=== PATIENT | female | born 1955 | race Caucasian/White ===

== ENCOUNTER → 2016-10-15 | Outpatient (CLI) | payer MEDICARE ==
[2016-10-15 11:02] LABS: CH 30.6; CHCM 32.9; HCT 43.4 % (34.0-46.0); HGB 13.8 gm/dL (11.4-16.0); MCH 29.8 pg (25.0-35.0); MCHC 31.9 g/dL (31.0-37.0); MCV 93.4 fL (80.0-100.0); Mean Platelet Volume 7.4; RBC 4.65 m/uL (3.80-5.40); RDW 13.2 % (11.5-15.5); WBC 6.3 k/uL (3.8-10.6)
[2016-10-15 11:26] LABS: Potassium 4.8 mmol/L (3.5-5.1)
[2016-10-15 13:09] LABS: Hemoglobin A1C 5.6 % (4.2-6.1)
== END ==
LOC: LABWHC1 08:28
PROVIDERS: ATTEND Psychiatry & Neurology Psychiatry
DX: F31.60 Bipolar disorder, current episode mixed, unspecified (principal); E87.8 Other disorders of electrolyte and fluid balance, not elsewhere classified; E11.9 Type 2 diabetes mellitus without complications
CPT/HCPCS: 36415; 80051; 80164; 83036; 84460; 85027

== ENCOUNTER → 2017-10-29 | Outpatient (CLI) | payer MEDICARE ==
--- NOTE | 2017-10-29 15:51 | BD ---
EXAMINATION TYPE: MG DEXA axial skeleton. DATE OF EXAM: 10/29/2017 COMPARISON: NONE CLINICAL HISTORY: Height: 4 FT 11 IN Weight: 191 FRAX RISK QUESTIONS: Alcohol (3 or more units per day): NO Family History (Parent hip fracture): NO Glucocorticoids (More than 3mos): NO (Ex: prednisone, prednisolone, methylprednisolone, dexamethasone, and hydrocortisone). History of Fracture in Adulthood: NO Secondary Osteoporosis: 1. Type 1 Diabetes: TYPE 2 2. Hyperthyroidism: NO 3. Menopause before 45: UNSURE 4. Malnutrition: NO 5. Chronic liver disease: NO Rheumatoid Arthritis: NO Current Tobacco Use: YES RISK FACTORS HISTORY OF: Family History of Osteoporosis: YES Active: NO Postmenopausal woman: PART HYST UNSURE OF YEAR Take estrogen and/or progesterone medications: DID TAKE NO LONGER TAKES Lost more than 2 inches in height since high school: YES MEDICATIONS: Thyroid Medications: YES Which medication: LEVOTHYROXINE How Lon YEARS Additional Medications: LEVOTHYROXINE,LASIX,BUSPIRONE, PAXIL, LAMICTAL,FERROUS SULFATE, TRIAMCINOLONE ACETONIDE, NEURONTIN, DEPAKOTE, LISINOPRIL, SPIRONOLACTONE, ATIVAN, MONTELUKAST, MAGNESIUM OXIDE, OM EPRAZOLE, NYSTATIN, ADVAIR, PROAIR, Additional History: EXTREME SCOLIOSIS EXAM MEASUREMENTS: Bone mineral densitometry was performed using the [employer] System. Bone mineral density as measured about the Lumbar spine is: ----- L1-L4(G/cm2): 1.429 T Score Values are as follows: ----- L2: 2.4 ----- L3: 3.5 ----- L4: 1.6 ----- L1-L4: 2.1 Bone mineral density has: INCREASED 14.2 % since study of: 2014 Bone mineral density about the R hip (g/cm2): 0.799 Bone mineral density about the L hip (g/cm2): 0.774 T Score values are as follows: -----R Neck: -1.7 -----L Neck: -1.9 -----R Total: -1.5 -----L Total: -1.4 Bone mineral density has: DECREASED -5.5 % since study of: 2014 IMPRESSION: Osteopenia about the bilateral femora. NOTE: T-SCORE=SD OF THE YOUNG ADULT MEAN.
== END | disposition home or self-care (01) ==
LOC: RADBDWWP 13:28
PROVIDERS: ATTEND Internal Medicine Endocrinology, Diabetes & Metabolism
DX: M85.851 Other specified disorders of bone density and structure, right thigh (principal); M85.852 Other specified disorders of bone density and structure, left thigh
CPT/HCPCS: 77080

== ENCOUNTER → 2017-10-29 | Outpatient (CLI) | payer MEDICARE ==
[2017-10-29 14:38] LABS: Basophils % (A) 1 %; Eosinophils % (A) 1 %; HCT 43.3 % (34.0-46.0); HGB 14.3 gm/dL (11.4-16.0); Lymphocytes # (A) 2.7 k/uL (1.0-4.8); Lymphocytes % (A) 34 %; MCH 29.8 pg (25.0-35.0); MCHC 33.1 g/dL (31.0-37.0); Mean Platelet Volume 6.7; Monocytes # (A) 0.6 k/uL (0-1.0); Monocytes % (A) 7 %; Neutrophils # (A) 4.4 k/uL (1.3-7.7); Neutrophils % (A) 56 %; Platelet Count 342 k/uL (150-450); RBC 4.81 m/uL (3.80-5.40); WBC 7.9 k/uL (3.8-10.6)
[2017-10-29 14:51] LABS: ALT 16 U/L (9-52); AST 26 U/L (14-36); Albumin 3.8 g/dL (3.5-5.0); Alkaline Phosphatase 82 U/L (38-126); Anion Gap 9 mmol/L; Blood Urea Nitrogen 12 mg/dL (7-17); Calcium 9.8 mg/dL (8.4-10.2); Carbon Dioxide 29 mmol/L (22-30); Chloride 95 mmol/L (98-107); Cholesterol 183 mg/dL (<200); Glucose 80 mg/dL (74-99); HDL Cholesterol 83 mg/dL (40-60); LDL Cholesterol,Calculated 87 mg/dL (0-99); Potassium 4.6 mmol/L (3.5-5.1); Sodium 133 mmol/L (137-145); Total Bilirubin 0.5 mg/dL (0.2-1.3); Total Protein 6.2 g/dL (6.3-8.2); Triglycerides 66 mg/dL (<150)
[2017-10-29 14:56] LABS: Valproic Acid (Depakene) 60.7 ug/mL
[2017-10-29 19:20] LABS: Vitamin D 25 Hydroxy 50.9 ng/mL (30.0-100.0)
[2017-10-29 21:46] LABS: Hemoglobin A1C 5.5 % (4.0-6.0)
== END | disposition home or self-care (01) ==
LOC: LABWHC1 14:01
PROVIDERS: ATTEND Internal Medicine Endocrinology, Diabetes & Metabolism
DX: I10 Essential (primary) hypertension (principal); E03.9 Hypothyroidism, unspecified; E11.8 Type 2 diabetes mellitus with unspecified complications; M81.0 Age-related osteoporosis without current pathological fracture; F31.60 Bipolar disorder, current episode mixed, unspecified
CPT/HCPCS: 36415; 80053; 80061; 80164; 82306; 83036; 83970; 84443; 85025

== ENCOUNTER 2018-05-06 23:42 | Inpatient (IN) | payer MEDICARE ==
[2018-05-07] MEDS ORDERED: methylPREDNISolone SOD SUCCI 125 MG/2 ML VIAL IV STA (01:06)
[2018-05-07] MEDS ORDERED: diphenhydrAMINE 50 MG/ML 1 ML VIAL IVP STA (01:06)
[2018-05-07] MEDS ORDERED: FAMOTIDINE 20 MG/2 ML VIAL IV STA (01:06)
--- NOTE | 2018-05-07 01:52 | XR ---
EXAMINATION TYPE: XR chest 2V DATE OF EXAM: 05/07/2018 COMPARISON: 08/30/2015 HISTORY: Weakness TECHNIQUE: Frontal and lateral views of the chest are obtained. FINDINGS: Heart is enlarged. There is no heart failure. There is elevated left diaphragm. Lungs appe ar clear of consolidation. There is some linear density at the left posterior lung base. IMPRESSION: There is new elevated left diaphragm that could relate to paralysis. New mild atelectasi s at the left posterior lung base. No heart failure.
--- NOTE | 2018-05-07 02:06 | CT ---
EXAMINATION TYPE: CT brain wo con for TPA DATE OF EXAM: 05/07/2018 COMPARISON: None HISTORY: AMS CT DLP: 953.8 mGycm Automated exposure control for dose reduction was used. FINDINGS: There is mild cerebral cortical atrophy. There is no mass effect nor midline shift. There is no sign of intracranial hemorrhage. The calvarium is intact. IMPRESSION: CEREBRAL ATROPHY. NO ACUTE INTRACRANIAL ABNORMALITY.
--- NOTE | 2018-05-07 02:11 | CT ---
EXAMINATION TYPE: CT angio head neck DATE OF EXAM: 05/07/2018 HISTORY: AMS COMPARISON: None CT DLP: 440.4 mGycm. Automated Exposure Control for Dose Reduction was Utilized. TECHNIQUE: CTA scan of the neck is performed with IV Contrast, patient injected with 65 mL of Isovue 370, axial images are obtained, coronal and sagittal reformatted images are reviewed. Three-D recons tructed images are created on an independent workstation and reviewed. FINDINGS: There is mild atheromatous change in the aortic arch. There is normal branching pattern of the great vessels. There is bilateral arterial flow in the vertebral arteries which are fairly symmetric. There is arterial flow in the common internal and external carotid arteries bilaterally. There is minimal plaque at the carotid artery bifurcations. There is no measurable luminal narrowing. There is no evid ence of carotid or vertebral artery aneurysm or dissection. There is arterial flow in the vertebrobasilar artery system. Basilar artery fills from both sides. Th ere is arterial flow in the anterior middle and posterior cerebral arteries bilaterally. I see no munira dence of intracranial aneurysm or neovascularity. I see no evidence of intracranial arterial stenosis . There is normal contrast opacification of the venous sinuses. There is no mass effect. IMPRESSION: Negative CT angiogram of the neck. Negative CT angiogram of the brain.
[2018-05-07 02:31] LABS: Basophils % (A) 1 %; Eosinophils # (A) 0.1 k/uL (0-0.7); Eosinophils % (A) 1 %; HCT 40.2 % (34.0-46.0); HGB 13.4 gm/dL (11.4-16.0); Lymphocytes # (A) 1.5 k/uL (1.0-4.8); Lymphocytes % (A) 21 %; MCH 31.1 pg (25.0-35.0); MCHC 33.4 g/dL (31.0-37.0); MCV 92.9 fL (80.0-100.0); Mean Platelet Volume 7.2; Monocytes # (A) 0.8 k/uL (0-1.0); Monocytes % (A) 11 %; Neutrophils # (A) 4.9 k/uL (1.3-7.7); Neutrophils % (A) 66 %; Platelet Count 175 k/uL (150-450); RBC 4.33 m/uL (3.80-5.40); RDW 12.6 % (11.5-15.5); WBC 7.4 k/uL (3.8-10.6)
[2018-05-07 02:35] LABS: ALT 20 U/L (9-52); AST 24 U/L (14-36); Albumin 3.9 g/dL (3.5-5.0); Alkaline Phosphatase 75 U/L (38-126); Anion Gap 9 mmol/L; Blood Urea Nitrogen 18 mg/dL (7-17); Calcium 9.5 mg/dL (8.4-10.2); Carbon Dioxide 28 mmol/L (22-30); Chloride 90 mmol/L (98-107); Glucose 78 mg/dL (74-99); Potassium 4.7 mmol/L (3.5-5.1); Sodium 127 mmol/L (137-145); Total Bilirubin 0.2 mg/dL (0.2-1.3); Total Protein 6.3 g/dL (6.3-8.2)
[2018-05-07 02:43] LABS: Partial Thromboplastin Time 24.2 sec (22.0-30.0); Prothrombin Time 9.7 sec (9.0-12.0)
[2018-05-07 02:51] LABS: Glucose,Whole Blood 110 mg/dL (75-99)
[2018-05-07 03:10] LABS: Creatine Kinase 56 U/L (30-135)
[2018-05-07 03:23] LABS: Creatine Kinase MB 1.5 ng/mL (0.0-2.4); Troponin I <0.012 ng/mL (0.000-0.034)
--- NOTE | 2018-05-07 03:58 | ED ---
General Adult HPI - General Source: patient Mode of arrival: wheelchair Limitations: no limitations <Aileen Handy - Last Filed: 05/07/18 03:48> <Audrey Rajan - Last Filed: 05/07/18 06:21> - General Chief complaint: Extremity Problem,Nontraumatic Stated complaint: Numbness, back pain Time Seen by Provider: 05/07/18 00:07 - History of Present Illness Initial comments: 62-year-old female patient presents to the emergency department today for complaints of left-sided facial numbness and weakness as well as tingling throughout her entire body. Patient states symptoms started around 10:30pm. States that she was sitting at her computer and was performing manual stretching of her neck when she started to feel tingling throughout her entire body and the numbness to the left side of her face. States that she feels generalized weakness. Patient states that she is never experienced symptoms like this in the past. States that she is now having difficulty breathing and feels like she is having trouble talking. She denies any chest pain, shortness of breath, headache, blurred vision, double vision, or dizziness. Patient denies any recent rash, fever, chills, abdominal pain, nausea, vomiting, diarrhea, constipation, hematuria, dysuria, urinary urgency, urinary frequency, or any other complaints. (Aileen Handy) - Related Data Home Medications Medication Instructions Recorded Confirmed Divalproex [Depakote] 500 mg PO TID 12/17/13 05/07/18 Fluticasone/Salmeterol [Advair 1 puff INHALATION Q12HR 12/17/13 05/07/18 250-50 Diskus] Furosemide [Lasix] 20 mg PO DAILY 12/17/13 05/07/18 Gabapentin [Neurontin] 800 mg PO TID 12/17/13 05/07/18 Hydrocodone/Acetaminophen [[place] 1 each PO Q6HR PRN 12/17/13 05/07/18 7.5-325] Levothyroxine Sodium [Levoxyl] 175 mcg PO DAILY 12/17/13 05/07/18 Lisinopril [Zestril] 20 mg PO DAILY 12/17/13 05/07/18 Montelukast [Singulair] 10 mg PO DAILY 12/17/13 05/07/18 Omeprazole [PriLOSEC] 20 mg PO BID 12/17/13 05/07/18 PARoxetine HCL [Paxil] 50 mg PO DAILY 12/17/13 05/07/18 Spironolactone [Aldactone] 25 mg PO DAILY 12/17/13 05/07/18 busPIRone HCL [Buspar] 30 mg PO BID 12/17/13 05/07/18 lamoTRIgine [LaMICtal] 100 mg PO BID 12/17/13 05/07/18 LORazepam [Ativan] 1 mg PO BID PRN 03/13/14 05/07/18 Ferrous Sulfate, Dried [Iron] 159 mg PO DIRECTED 03/15/14 05/07/18 Allergies Allergy/AdvReac Type Severity Reaction Status Date / Time codeine Allergy Unknown Verified 08/30/15 18:53 Childhood egg Allergy Swelling Verified 08/30/15 18:53 Penicillins Allergy Rash/Hives Verified 08/30/15 18:53 Sulfa (Sulfonamide Allergy Rash/Hives Verified 08/30/15 18:53 Antibiotics) Review of Systems ROS Other: All systems not noted in ROS Statement are negative. <Aileen Handy - Last Filed: 05/07/18 03:48> ROS Other: All systems not noted in ROS Statement are negative. <Audrey Rajan - Last Filed: 05/07/18 06:21> ROS Statement: Those systems with pertinent positive or pertinent negative responses have been documented in the HPI. Past Medical History Past Medical History: Asthma, Diabetes Mellitus, Fibromyalgia, Hypertension, Osteoarthritis (OA), Skin Disorder, Thyroid Disorder Additional Past Medical History / Comment(s): cellulitis, herniated disc in neck ,back History of Any Multi-Drug Resistant Organisms: None Reported Past Surgical History: Adenoidectomy, Section, Cholecystectomy, Hysterectomy, Tonsillectomy Additional Past Surgical History / Comment(s): gastric bypass Past Anesthesia/Blood Transfusion Reactions: Previous Problems w/ Anesthesia Additional Past Anesthesia/Blood Transfusion Reaction / Comment(s): itching, some kind of problem after gastric bypass-not sure what happened Past Psychological History: Anxiety, Bipolar, Depression Smoking Status: Current every day smoker Past Alcohol Use History: None Reported Past Drug Use History: None Reported - Past Family History Mother Family Medical History: Congestive Heart Failure (CHF), Hypertension <OleIsraelAileen M - Last Filed: 05/07/18 03:48> General Exam Limitations: no limitations General appearance: alert, in no apparent distress, other (This is a well- developed, obese adult female patient in no acute distress. Vital signs upon presentation are temperature 97.9F, pulse 74, respirations 18, blood pressure 154/70, pulse ox 98% on room air.) Eye exam: Present: normal appearance, PERRL, EOMI. Absent: scleral icterus, conjunctival injection, nystagmus, periorbital swelling ENT exam: Present: normal exam, normal oropharynx, mucous membranes moist Respiratory exam: Present: normal lung sounds bilaterally. Absent: respiratory distress, wheezes, rales, rhonchi, stridor Cardiovascular Exam: Present: regular rate, normal rhythm, normal heart sounds. Absent: systolic murmur, diastolic murmur, rubs, gallop, clicks GI/Abdominal exam: Present: soft, normal bowel sounds. Absent: distended, tenderness, guarding, rebound, rigid Neurological exam: Present: alert, oriented X3, CN II-XII intact Expanded Speech: Present: fluid speech Cranial nerves: EOM's Intact: Normal, Nystagmus: Normal, Facial Sensation: Normal Motor strength exam: RUE: 4, LUE: 4, RLE: 3, LLE: 3 Psychiatric exam: Present: normal affect, normal mood Skin exam: Present: warm, dry, intact, normal color. Absent: rash <Aileen Handy M - Last Filed: 05/07/18 03:48> Vital Signs 05/06/18 05/07/18 05/07/18 23:44 01:23 02:10 Temperature 97.9 F Pulse Rate 74 65 Respiratory 18 16 16 Rate Blood Pressure 154/70 142/77 O2 Sat by Pulse 98 99 Oximetry 05/07/18 05/07/18 05/07/18 02:52 03:10 04:00 Temperature Pulse Rate 66 65 Respiratory 16 14 16 Rate Blood Pressure 118/66 118/66 O2 Sat by Pulse 96 94 L Oximetry 05/07/18 04:27 Temperature Pulse Rate 64 Respiratory 16 Rate Blood Pressure 110/50 O2 Sat by Pulse Oximetry EKG Findings - EKG Comments: EKG Findings:: EKG obtained at 0101 shows normal sinus rhythm with a ventricular rate of 65, [place] interval 184, QRS duration 114, QTC 416, QTC 432. No evidence of ST elevation or depression. <Aileen Handy - Last Filed: 05/07/18 03:48> Medical Decision Making - Lab Data Result diagrams: 05/07/18 00:53 05/07/18 00:53 - Radiology Data Radiology results: report reviewed, image reviewed <Aileen Handy - Last Filed: 05/07/18 03:48> - Lab Data Result diagrams: 05/07/18 00:53 05/07/18 00:53 <Audrey Rajan - Last Filed: 05/07/18 06:21> - Medical Decision Making 62-year-old female patient presented to the emergency department today with complaints of left-sided facial numbness and weakness as well as generalized body tingling. Physical examination did reveal very mild left-sided facial droop however this could be patient's baseline. Remainder of neurologic exam is unremarkable with no focal deficits. Labs reviewed and are relatively unremarkable. We did perform CT brain with and without contrast showed no evidence for acute intracranial or vascular abnormalities. Upon reevaluation patient is still reporting left-sided facial numbness and states that she feels like she can't open her left eye. Vital signs are stable. Patient will be admitted for further neurologic evaluation. (Aileen Handy) I was available for consultation in the emergency department. The history and physical exam were done by the midlevel provider. I was consulted for this patient's care. I reviewed the case with the midlevel provider and based on their presentation of the patient, I agree with the assessment, medical decision making and plan of care as documented. (Audrey Rajan) - Lab Data Lab Results 05/07/18 05/07/18 05/07/18 Range/Units 00:53 00:53 00:53 WBC 7.4 (3.8-10.6) k/uL RBC 4.33 (3.80-5.40) m/uL Hgb 13.4 (11.4-16.0) gm/dL Hct 40.2 (34.0-46.0) % MCV 92.9 (80.0-100.0) fL MCH 31.1 (25.0-35.0) pg MCHC 33.4 (31.0-37.0) g/dL RDW 12.6 (11.5-15.5) % Plt Count 175 (150-450) k/uL Neutrophils % 66 % Lymphocytes % 21 % Monocytes % 11 % Eosinophils % 1 % Basophils % 1 % Neutrophils # 4.9 (1.3-7.7) k/uL Lymphocytes # 1.5 (1.0-4.8) k/uL Monocytes # 0.8 (0-1.0) k/uL Eosinophils # 0.1 (0-0.7) k/uL Basophils # 0.0 (0-0.2) k/uL PT (9.0-12.0) sec INR (<1.2) APTT (22.0-30.0) sec Sodium 127 L (137-145) mmol/L Potassium 4.7 (3.5-5.1) mmol/L Chloride 90 L (98-107) mmol/L Carbon Dioxide 28 (22-30) mmol/L Anion Gap 9 mmol/L BUN 18 H (7-17) mg/dL Creatinine 0.80 (0.52-1.04) mg/dL Est GFR (CKD-EPI)AfAm >90 (>60 ml/min/1.73 sqM) Est GFR (CKD-EPI)NonAf 81 (>60 ml/min/1.73 sqM) Glucose 78 (74-99) mg/dL POC Glucose (mg/dL) (75-99) mg/dL POC Glu Sole Conditioner ID Calcium 9.5 (8.4-10.2) mg/dL Magnesium (1.6-2.3) mg/dL Total Bilirubin 0.2 (0.2-1.3) mg/dL AST 24 (14-36) U/L ALT 20 (9-52) U/L Alkaline Phosphatase 75 (38-126) U/L Total Creatine Kinase 56 (30-135) U/L CK-MB (CK-2) 1.5 (0.0-2.4) ng/mL CK-MB (CK-2) Rel Index 2.7 Troponin I <0.012 (0.000-0.034) ng/mL Total Protein 6.3 (6.3-8.2) g/dL Albumin 3.9 (3.5-5.0) g/dL 05/07/18 05/07/18 05/07/18 Range/Units 00:53 00:53 02:49 WBC (3.8-10.6) k/uL RBC (3.80-5.40) m/uL Hgb (11.4-16.0) gm/dL Hct (34.0-46.0) % MCV (80.0-100.0) fL MCH (25.0-35.0) pg MCHC (31.0-37.0) g/dL RDW (11.5-15.5) % Plt Count (150-450) k/uL Neutrophils % % Lymphocytes % % Monocytes % % Eosinophils % % Basophils % % Neutrophils # (1.3-7.7) k/uL Lymphocytes # (1.0-4.8) k/uL Monocytes # (0-1.0) k/uL Eosinophils # (0-0.7) k/uL Basophils # (0-0.2) k/uL PT 9.7 (9.0-12.0) sec INR 1.0 (<1.2) APTT 24.2 (22.0-30.0) sec Sodium (137-145) mmol/L Potassium (3.5-5.1) mmol/L Chloride (98-107) mmol/L Carbon Dioxide (22-30) mmol/L Anion Gap mmol/L BUN (7-17) mg/dL Creatinine (0.52-1.04) mg/dL Est GFR (CKD-EPI)AfAm (>60 ml/min/1.73 sqM) Est GFR (CKD-EPI)NonAf (>60 ml/min/1.73 sqM) Glucose (74-99) mg/dL POC Glucose (mg/dL) 110 H (75-99) mg/dL POC Glu Sole Conditioner ID Renae Browne Calcium (8.4-10.2) mg/dL Magnesium 1.8 (1.6-2.3) mg/dL Total Bilirubin (0.2-1.3) mg/dL AST (14-36) U/L ALT (9-52) U/L Alkaline Phosphatase (38-126) U/L Total Creatine Kinase (30-135) U/L CK-MB (CK-2) (0.0-2.4) ng/mL CK-MB (CK-2) Rel Index Troponin I (0.000-0.034) ng/mL Total Protein (6.3-8.2) g/dL Albumin (3.5-5.0) g/dL - Radiology Data Two-view x-ray of the chest is obtained. Heart is enlarged. There is no heart failure. There is elevated left diaphragm. Lungs appeared clear consolidation. There is some linear density at the left posterior lung base. Impression by Dr. Garcia shows new elevated left diaphragm could relate to paralysis. New mild atelectasis at the left posterior lung base. No heart failure. CT of the brain without contrast was obtained. There is mild cervical cortical atrophy. No mass effect or midline shift. There is no sign of injury cranial hemorrhage. The calvarium is intact. Impression by Dr. Gacria shows cerebral atrophy. No acute intracranial abnormality. CTA of the neck and head is performed. Report was reviewed in its entirety. Impression by Dr. Garcia shows negative CT angiogram of the head and neck. ( Aileen Handy) Disposition Decision to Admit Reason: Admit from EC Decision Time: 03:59 <Aileen Handy - Last Filed: 05/07/18 03:48> <Audrey Rajan - Last Filed: 05/07/18 06:21> Clinical Impression: Weakness, Facial numbness Disposition: ADMITTED IP TO THIS [facility] Condition: Serious
[2018-05-07] MEDS ORDERED: NALOXONE 0.4 MG/ML 1 ML VIAL IV PRN (03:59)
[2018-05-07 04:35] LABS: Appearance,Urine Clear (Clear); Bacteria,Urine Rare /hpf; Bilirubin,Urine Negative (Negative); Blood,Urine Negative (Negative); Color,Urine Light Yellow; Glucose,Urine (UA) Negative (Negative); Ketones,Urine Negative (Negative); Leukocyte Esterase,Urine Large (Negative); Mucus,Urine Rare /hpf; Nitrite,Urine Negative (Negative); PH, Urine 5.5 (5.0-8.0); Protein,Urine Negative (Negative); Specific Gravity,Urine 1.016 (1.001-1.035); Urobilinogen,Urine <2.0 mg/dL (<2.0); WBC,Urine 9 /hpf (0-5)
[2018-05-07 04:43] LABS: Glucose,Whole Blood 133 mg/dL (75-99)
[2018-05-07 04:53] VITALS: BMI 37.2
[2018-05-07 07:31] LABS: Glucose,Whole Blood 143 mg/dL (75-99)
[2018-05-07 12:08] LABS: Glucose,Whole Blood 159 mg/dL (75-99)
--- NOTE | 2018-05-07 13:10 | P.CONS ---
History of Present Illness - Reason for Consult Consult date: 05/07/18 Left facial numbness - Chief Complaint Left facial numbness and left arm numbness - History of Present Illness This pleasant 62-year-old female being evaluated by the neurology service for some acute left neck pain, left facial numbness, left arm numbness. The patient gives a significant history of torticollis. She has been seen by Dr. Abrams for this and neck and mid back pain. She said that her neck felt unusually stiff and she tried to perform a maneuver where she put 1 hand on her chin and one hand on the back of her head and tried to twist her neck. She did feel a pop and soon after that started to have the above symptoms. She said she did see stars and felt a little lightheaded. She asked her to take her to the emergency room but he would not. She drove herself. Significant history of depression and bipolar disorder. She does take [place] for chronic pain occasionally. She says the symptoms of numbness are significantly improved. But she still has some neck pain and tingling in her left and right hand. At the time my exam she is resting comfortably in bed in some mild distress due to pain. She also complained of some difficulty in breathing. Her initial CT in the ER showed no acute intracranial abnormalities. Her chest x-ray did show a new as compared to 2016, elevated left hemidiaphragm that could be related to paralysis. Review of Systems All systems: negative Constitutional: Reports as per HPI Past Medical History Past Medical History: Asthma, Diabetes Mellitus, Fibromyalgia, Hypertension, Osteoarthritis (OA), Skin Disorder, Thyroid Disorder Additional Past Medical History / Comment(s): cellulitis, herniated disc in neck ,back, scolosis with brace History of Any Multi-Drug Resistant Organisms: None Reported Past Surgical History: Adenoidectomy, Section, Cholecystectomy, Hysterectomy, Tonsillectomy Additional Past Surgical History / Comment(s): gastric bypass Past Anesthesia/Blood Transfusion Reactions: Previous Problems w/ Anesthesia Additional Past Anesthesia/Blood Transfusion Reaction / Comm: itching, some kind of problem after gastric bypass-not sure what happened Past Psychological History: Anxiety, Bipolar, Depression Smoking Status: Current every day smoker Past Alcohol Use History: None Reported Past Drug Use History: None Reported - Past Family History Mother Family Medical History: Congestive Heart Failure (CHF), Hypertension Medications and Allergies Home Medications Medication Instructions Recorded Confirmed Type Divalproex [Depakote] 500 mg PO TID 12/17/13 05/07/18 History Fluticasone/Salmeterol [Advair 1 puff INHALATION RT-BID 12/17/13 05/07/18 History 250-50 Diskus] Furosemide [Lasix] 20 mg PO DAILY 12/17/13 05/07/18 History Gabapentin [Neurontin] 800 mg PO TID 12/17/13 05/07/18 History Levothyroxine Sodium [Levoxyl] 175 mcg PO DAILY 12/17/13 05/07/18 History Lisinopril [Zestril] 20 mg PO DAILY 12/17/13 05/07/18 History Montelukast [Singulair] 10 mg PO HS 12/17/13 05/07/18 History PARoxetine HCL [Paxil] 50 mg PO DAILY 12/17/13 05/07/18 History Spironolactone [Aldactone] 25 mg PO DAILY 12/17/13 05/07/18 History busPIRone HCL [Buspar] 30 mg PO BID 12/17/13 05/07/18 History lamoTRIgine [LaMICtal] 100 mg PO BID 12/17/13 05/07/18 History LORazepam [Ativan] 1 mg PO BID PRN 03/13/14 05/07/18 History Albuterol Sulfate [Proair Hfa] 1 - 2 puff INHALATION RT-Q6H PRN 05/07/18 History HYDROcodone/APAP 10-325MG [[place] 1 tab PO TID PRN 05/07/18 05/07/18 History 10-325] Magnesium Oxide [Mag-Ox] 400 mg PO DAILY 05/07/18 05/07/18 History Omeprazole 20 mg PO DAILY 05/07/18 05/07/18 History Triamcinolone 0.025% Cream 1 applic TOPICAL BID 05/07/18 05/07/18 History [Kenalog 0.025% Cream] Allergies Allergy/AdvReac Type Severity Reaction Status Date / Time codeine Allergy Unknown Verified 05/07/18 11:34 Childhood egg Allergy Swelling Verified 05/07/18 11:34 Penicillins Allergy Rash/Hives Verified 05/07/18 11:34 Sulfa (Sulfonamide Allergy Rash/Hives Verified 05/07/18 11:34 Antibiotics) Physical Exam Vitals: Vital Signs Temp Pulse Resp BP Pulse Ox 05/07/18 12:00 74 12 156/80 91 L 05/07/18 11:00 71 12 156/80 91 L 05/07/18 10:00 75 12 156/80 93 L 05/07/18 09:00 75 13 156/80 90 L 05/07/18 08:00 97.8 F 64 12 156/80 92 L 05/07/18 07:00 66 11 L 156/80 91 L 05/07/18 06:30 66 11 L 156/80 96 05/07/18 06:00 65 11 L 156/80 91 L 05/07/18 05:30 65 11 L 156/80 92 L 05/07/18 05:22 21 05/07/18 05:00 97.6 F 67 21 175/84 93 L 05/07/18 04:30 63 10 L 95 05/07/18 04:27 64 16 110/50 05/07/18 04:00 65 16 118/66 94 L 05/07/18 03:10 66 14 118/66 96 05/07/18 02:52 16 05/07/18 02:10 65 16 142/77 99 05/07/18 01:23 16 05/06/18 23:44 97.9 F 74 18 154/70 98 Intake and Output 05/06/18 05/07/18 05/07/18 22:59 06:59 14:59 Intake Total 200 Output Total 0 0 Balance 200 0 Intake: Oral 200 Output: Urine 0 0 Stool 0 Other: Voiding Method Bedside Commode Bedside Commode # Voids 0 # Bowel Movements 1 Weight 86.4 kg - Constitutional General appearance: cooperative, mild distress - EENT Eyes: no abnormal pupil, EOMI, PERRLA, no ptosis ENT: hearing grossly normal - Neck Decreased cervical rotation and lateral flexion Neck: no rigidity - Respiratory Respiratory: negative: prolonged expiration, prolonged inspiration - Cardiovascular Rhythm: regular - Gastrointestinal General gastrointestinal: no distended, no tenderness - Neurologic The patient is alert awake and oriented 3. Speech and language are normal. There is no facial asymmetry. Strength is 5 out of 5 in bilateral upper and lower extremities. There is no sensory deficit. No tremors or seizures are seen. Cranial nerves II through XII are intact globally. Results CBC & Chem 7: 05/07/18 00:53 05/07/18 00:53 Labs: Abnormal Lab Results - Last 24 Hours (Table) 05/07/18 05/07/18 05/07/18 Range/Units 00:53 02:49 04:10 Sodium 127 L (137-145) mmol/L Chloride 90 L (98-107) mmol/L BUN 18 H (7-17) mg/dL POC Glucose (mg/dL) 110 H (75-99) mg/dL Ur Leukocyte Esterase Large H (Negative) Urine WBC 9 H (0-5) /hpf Urine Bacteria Rare H (None) /hpf Urine Mucus Rare H (None) /hpf 05/07/18 05/07/18 05/07/18 Range/Units 04:41 07:29 12:05 Sodium (137-145) mmol/L Chloride (98-107) mmol/L BUN (7-17) mg/dL POC Glucose (mg/dL) 133 H 143 H 159 H (75-99) mg/dL Ur Leukocyte Esterase (Negative) Urine WBC (0-5) /hpf Urine Bacteria (None) /hpf Urine Mucus (None) /hpf Assessment and Plan (1) Torticollis Current Visit: Yes Status: Chronic Code(s): M43.6 - TORTICOLLIS SNOMED Code(s): 09816337 (2) Cervicalgia Current Visit: Yes Status: Chronic Code(s): M54.2 - CERVICALGIA SNOMED Code(s): 32554711 (3) Hand numbness Current Visit: Yes Status: Acute Code(s): R20.0 - ANESTHESIA OF SKIN SNOMED Code(s): 862801234 (4) Elevated hemidiaphragm Current Visit: Yes Status: Suspected Code(s): J98.6 - DISORDERS OF DIAPHRAGM SNOMED Code(s): 17028680 (5) COPD (chronic obstructive pulmonary disease) Current Visit: Yes Status: Chronic Code(s): J44.9 - CHRONIC OBSTRUCTIVE PULMONARY DISEASE, UNSPECIFIED SNOMED Code(s): 26599617 (6) Facial numbness Current Visit: Yes Status: Acute Code(s): R20.0 - ANESTHESIA OF SKIN SNOMED Code(s): 816103159 (7) Weakness Current Visit: Yes Status: Resolved Code(s): R53.1 - WEAKNESS SNOMED Code( s): 29874631 Plan: This patient ,by a performing manual stretching maneuvers on her neck, has likely caused some injury or insult around the C3 to C5 levels. Possibly there may be injury to the phrenic nerves causing the left sided hemidiaphragm changes on her chest x-ray. I will order an MRI of the cervical and thoracic spine. I have consulted pulmonology. Of course, given her long history of smoking and COPD other causes of elevated left hemidiaphragm must be investigated. She may need orthopedic spine or neurosurgical consultation. I doubt any cerebrovascular etiology at this point. Continue neurological checks. I would hold off on any physical or occupational therapy until results of MRI return. We will continue to follow and make recommendations based on the above studies. I have performed a history and physical on the above patient. I have reviewed the above note, and agree.
[2018-05-07] MEDS ORDERED: LORazepam 2 MG/ML INJ IV STA (13:19)
[2018-05-07] MEDS ORDERED: HYDROcodone/APAP 10-325MG 1 EACH TAB PO PRN (14:43)
[2018-05-07] MEDS ORDERED: ALBUTEROL NEBULIZED 2.5 MG/3 ML INHALATION PRN (14:43)
[2018-05-07] MEDS ORDERED: LORazepam 1 MG TAB PO PRN (14:43)
--- NOTE | 2018-05-07 14:44 | P.CNPUL ---
History of Present Illness Consult date: 05/07/18 Reason for consult: asthma, abnormal CXR/CT Chief complaint: Abnormal chest x-ray showing elevated left diaphragm History of present illness: Pulmonary consult dated 05/07/2018 62-year-old female with a history of asthma who apparently presents to the emergency department with complaints of left-sided facial numbness and weakness as well as tingling throughout her entire body. The patient states that she has chronic neck issues and she was trying to manipulate her own neck. The patient apparently was evaluated in the emergency department for possible CVA but was found not to have a CVA. It was noted also that she had a chest x-ray that showed an elevated left diaphragm. The patient had a chest x-ray back in 2016 which did not show this elevated left hemidiaphragm. She did go down for a MRI of the cervical and thoracic spine which may shed some light as to why her diaphragm is elevated on the left side. She denies any shortness of breath and difficulty breathing. She does have a history of asthma. Her asthma is well-controlled on Advair and a rescue inhaler. I told her that the results of the MRI may shed some light as to why the left diaphragm is elevated. She may have a lesion in the cervical spine that may explain the left diaphragm elevation. Again she denies any difficulty breathing or any other pulmonary complaints for that matter. Review of Systems A 14 point review of system is positive for left-sided facial numbness week weakness and tingling throughout her entire body. It apparently occurred when she was manipulating her neck she suffers from scoliosis and torticollis. She denies any respiratory issues. Past Medical History Past Medical History: Asthma, Diabetes Mellitus, Fibromyalgia, Hypertension, Osteoarthritis (OA), Skin Disorder, Thyroid Disorder Additional Past Medical History / Comment(s): cellulitis, herniated disc in neck ,back, scolosis with brace History of Any Multi-Drug Resistant Organisms: None Reported Past Surgical History: Adenoidectomy, Section, Cholecystectomy, Hysterectomy, Tonsillectomy Additional Past Surgical History / Comment(s): gastric bypass Past Anesthesia/Blood Transfusion Reactions: Previous Problems w/ Anesthesia Additional Past Anesthesia/Blood Transfusion Reaction / Comment(s): itching, some kind of problem after gastric bypass-not sure what happened Past Psychological History: Anxiety, Bipolar, Depression Smoking Status: Current every day smoker Past Alcohol Use History: None Reported Past Drug Use History: None Reported - Past Family History Mother Family Medical History: Congestive Heart Failure (CHF), Hypertension Medications and Allergies Home Medications Medication Instructions Recorded Confirmed Type Divalproex [Depakote] 500 mg PO TID 12/17/13 05/07/18 History Fluticasone/Salmeterol [Advair 1 puff INHALATION RT-BID 12/17/13 05/07/18 History 250-50 Diskus] Furosemide [Lasix] 20 mg PO DAILY 12/17/13 05/07/18 History Gabapentin [Neurontin] 800 mg PO TID 12/17/13 05/07/18 History Levothyroxine Sodium [Levoxyl] 175 mcg PO DAILY 12/17/13 05/07/18 History Lisinopril [Zestril] 20 mg PO DAILY 12/17/13 05/07/18 History Montelukast [Singulair] 10 mg PO HS 12/17/13 05/07/18 History PARoxetine HCL [Paxil] 50 mg PO DAILY 12/17/13 05/07/18 History Spironolactone [Aldactone] 25 mg PO DAILY 12/17/13 05/07/18 History busPIRone HCL [Buspar] 30 mg PO BID 12/17/13 05/07/18 History lamoTRIgine [LaMICtal] 100 mg PO BID 12/17/13 05/07/18 History LORazepam [Ativan] 1 mg PO BID PRN 03/13/14 05/07/18 History Albuterol Sulfate [Proair Hfa] 1 - 2 puff INHALATION RT-Q6H PRN 05/07/18 History HYDROcodone/APAP 10-325MG [[place] 1 tab PO TID PRN 05/07/18 05/07/18 History 10-325] Magnesium Oxide [Mag-Ox] 400 mg PO DAILY 05/07/18 05/07/18 History Omeprazole 20 mg PO DAILY 05/07/18 05/07/18 History Triamcinolone 0.025% Cream 1 applic TOPICAL BID 05/07/18 05/07/18 History [Kenalog 0.025% Cream] Allergies Allergy/AdvReac Type Severity Reaction Status Date / Time codeine Allergy Unknown Verified 05/07/18 11:34 Childhood egg Allergy Swelling Verified 05/07/18 11:34 Penicillins Allergy Rash/Hives Verified 05/07/18 11:34 Sulfa (Sulfonamide Allergy Rash/Hives Verified 05/07/18 11:34 Antibiotics) Physical Exam Osteopathic Statement: *. No significant issues noted on an osteopathic structural exam other than those noted in the History and Physical/Consult. Vitals: Vital Signs Temp Pulse Resp BP Pulse Ox 05/07/18 12:00 74 12 156/80 91 L 05/07/18 11:00 71 12 156/80 91 L 05/07/18 10:00 75 12 156/80 93 L 05/07/18 09:00 75 13 156/80 90 L 05/07/18 08:00 97.8 F 64 12 156/80 92 L 05/07/18 07:00 66 11 L 156/80 91 L 05/07/18 06:30 66 11 L 156/80 96 05/07/18 06:00 65 11 L 156/80 91 L 05/07/18 05:30 65 11 L 156/80 92 L 05/07/18 05:22 21 05/07/18 05:00 97.6 F 67 21 175/84 93 L 05/07/18 04:30 63 10 L 95 05/07/18 04:27 64 16 110/50 05/07/18 04:00 65 16 118/66 94 L 05/07/18 03:10 66 14 118/66 96 05/07/18 02:52 16 05/07/18 02:10 65 16 142/77 99 05/07/18 01:23 16 05/06/18 23:44 97.9 F 74 18 154/70 98 Intake and Output 05/06/18 05/07/18 05/07/18 22:59 06:59 14:59 Intake Total 200 Output Total 0 0 Balance 200 0 Intake: Oral 200 Output: Urine 0 0 Stool 0 Other: Voiding Method Bedside Commode Bedside Commode # Voids 0 # Bowel Movements 1 Weight 86.4 kg No acute distress, oriented 3. HEENT examination is grossly unremarkable. Mucous membranes are moist. No oral lesions. Neck supple. Full range of motion. No adenopathy thyromegaly or neck vein distention. Cardiovascular examination reveals regular rhythm rate. S1-S2 normal. No S3 or S4. No discernible murmur noted. Lungs reveal clear breath sounds. Her sounds are equal bilaterally. No adventitious lung sounds including wheezes rhonchi or crackles. Abdomen soft bowel sounds are heard. No masses or tenderness. Extremities are intact. No cyanosis clubbing or edema. Skin is without rash or lesion. Neurologic examination is brief but nonfocal. Results - Laboratory Findings CBC and BMP: 05/07/18 00:53 05/07/18 00:53 PT/INR, D-dimer PT 9.7 sec (9.0-12.0) 05/07/18 00:53 INR 1.0 (<1.2) 05/07/18 00:53 Abnormal lab findings: Abnormal Labs 05/07/18 05/07/18 05/07/18 00:53 02:49 04:10 Sodium 127 L Chloride 90 L BUN 18 H POC Glucose (mg/dL) 110 H Ur Leukocyte Esterase Large H Urine WBC 9 H Urine Bacteria Rare H Urine Mucus Rare H 05/07/18 05/07/18 05/07/18 04:41 07:29 12:05 Sodium Chloride BUN POC Glucose (mg/dL) 133 H 143 H 159 H Ur Leukocyte Esterase Urine WBC Urine Bacteria Urine Mucus - Diagnostic Findings Chest x-ray: report reviewed, image reviewed (Labs x-rays and medications are reviewed.) Assessment and Plan Assessment: Assessment Left hemidiaphragm elevation and possible weakness/paralysis, of unclear etiology. The answer may lie in the MRI of the cervical and thoracic spine which was just completed. No evidence of CVA at this time History of asthma, well-controlled History of diabetes mellitus History of fibromyalgia History of hypertension History of hypothyroidism DJD History of scoliosis and torticollis Plan: Plan dated 05/07/2018 We will await the results of the MRI scan. The patient may benefit from a sniff test. Additional recommendations and suggestions are forthcoming. A pulmonary function tests including a maximal inspiratory pressure and maximal expiratory pressure as well as a MVV may be of benefit. The patient is currently not having any respiratory issues and her asthma seems to be well controlled. I did give her my card and my phone number to come in contact with me post discharge. Time with Patient: Greater than 30
--- NOTE | 2018-05-07 14:52 | MR ---
EXAMINATION TYPE: MR cervical spine wo con DATE OF EXAM: 05/07/2018 COMPARISON: 06/21/2012 HISTORY: 62-year-old female Pain, Torticollis, Left sided diaphragm paralysis TECHNIQUE: Multiplanar, multisequence images of the cervical spine were acquired. The patient was in too much pain to complete the exam. Axial T2 sequences could not be obtained. FINDINGS: No craniocervical junction abnormalities, predental space widening, or prevertebral soft tissue swell ing. Excessive patient motion artifacts degrading image quality. Axial series could not also not be obtain ed. Moderate to advanced multilevel disc/endplate degenerative change progressed from 2011 with reversal of the normal cervical lordosis midcervical spine and accentuated upper cervical lordosis. Alignment is maintained. No suspicious bone marrow replacement. Bulging discs and disc osteophyte complex formation is present at multiple levels along with ligament um flavum thickening as well as facet and uncovertebral joint arthropathy. At C2-C3, there is been progression in disc bulge with mild spinal canal stenosis and abutment of the ventral cord. At C3-C4, there is been progression in disc osteophyte complex formation and ligamentum flavum thicke martha. Along with the accentuated lordosis at this level, there is moderate to severe spinal canal danica nosis with AP canal dimension of 5.5 mm. Abutment and flattening of both dorsal and ventral cord. At C4-C5, disc osteophyte complex is progressed now with mild to moderate spinal canal stenosis. Ther e is abutment of the ventral cord. At C5-C6, ligamentum flavum thickening and disc osteophyte complex contributing to mild to moderate c anal stenosis with abutment of both the dorsal and ventral cord. At C6-C7, as discussed 3 complex and ligamentum flavum thickening. There is mild spinal canal stenosi s with abutment of the ventral cord. At C7-T1, no spinal canal or neuroforaminal stenosis. At T2-T3 and T3-T4, small central disc protrusions are noted over present on the prior exam as well. Excessive motion artifacts degrade assessment for cord signal alterations. The findings are projected on the spinal cord are favored to be artifactual rather than cord edema. Lack of axial series limits assessment of the neuroforamen. IMPRESSION: 1. Patient was in too much pain to complete the exam. Axial series could not be obtained. This limits assessment of the neuroforamen. 2. Moderate to advanced disc/endplate degenerative change progressed from 2012 with an accentuated up per cervical lordosis, multilevel disc osteophyte complexes and ligamentum flavum thickening. 3. In particular, at C3-C4, there is a moderate to severe spinal canal stenosis with AP canal dimensi on narrowed to 5.5 mm. There is abutment and flattening of both the dorsal and ventral cord. 4. Additional variable mild and moderate spinal canal stenoses as outlined above. 5. Extensive motion artifacts. The signal changes projecting along the cord are felt to be artifactua l rather than representing edema.
[2018-05-07] MEDS: GABAPENTIN 400 MG CAP PO SCH ×2 (16:15→21:03)
[2018-05-07] MEDS: LISINOPRIL 20 MG TAB PO SCH (16:15)
[2018-05-07] MEDS: LEVOTHYROXINE 100 MCG TAB PO SCH (16:15)
[2018-05-07] MEDS: DIVALPROEX 500 MG TABLET.DR PO SCH ×2 (16:15→21:03)
[2018-05-07] MEDS: SPIRONOLACTONE 25 MG TAB PO SCH (16:15)
[2018-05-07] MEDS: PARoxetine 10 MG TAB PO SCH (16:15)
[2018-05-07] MEDS: PANTOPRAZOLE 40 MG TABLET PO SCH (16:15)
[2018-05-07] MEDS: LEVOTHYROXINE 75 MCG TAB PO SCH (16:16)
[2018-05-07 17:53] LABS: Glucose,Whole Blood 121 mg/dL (75-99)
--- NOTE | 2018-05-07 18:10 | P.HPIM ---
History of Present Illness H&P Date: 05/07/18 Chief Complaint: Numbness and tingling This is 62 years old female who presented to the emergency department with left- sided numbness and tingling. Patient reported numbness started 2 hours prior to arrival to the emergency on the left face associated with facial droop and slurred speech that was witnessed by the patient herself then moved to have left upper extremity and then left lower extremity radiating on the neck and on the entire left side of the body symptoms resolved after presentation to the emergency department and patient stated that nobody witnessed the left-sided facial droop or slurred speech. Patient was alert and oriented 4 on presentation to the ER and on further questioning patient denied being suffering from facial droop and said that's only the numbness and tingling on the left side of the body. Patient denied any recent upper respiratory infection , shortness breath, chest pain, nausea, vomiting, abdominal pain, dizziness, lightheadedness, blurry vision, night sweats or low-grade fever. Patient denied any history of stroke in the past denied being on aspirin or Plavix and said that she's been in her regular state of health Review of Systems All 14 systems reviewed and negative except as above Past Medical History Past Medical History: Asthma, Diabetes Mellitus, Fibromyalgia, Hypertension, Osteoarthritis (OA), Skin Disorder, Thyroid Disorder Additional Past Medical History / Comment(s): cellulitis, herniated disc in neck ,back, scolosis with brace History of Any Multi-Drug Resistant Organisms: None Reported Past Surgical History: Adenoidectomy, Section, Cholecystectomy, Hysterectomy, Tonsillectomy Additional Past Surgical History / Comment(s): gastric bypass Past Anesthesia/Blood Transfusion Reactions: Previous Problems w/ Anesthesia Additional Past Anesthesia/Blood Transfusion Reaction / Comment(s): itching, some kind of problem after gastric bypass-not sure what happened Past Psychological History: Anxiety, Bipolar, Depression Smoking Status: Current every day smoker Past Alcohol Use History: None Reported Past Drug Use History: None Reported - Past Family History Mother Family Medical History: Congestive Heart Failure (CHF), Hypertension Medications and Allergies Home Medications Medication Instructions Recorded Confirmed Type Divalproex [Depakote] 500 mg PO TID 12/17/13 05/07/18 History Fluticasone/Salmeterol [Advair 1 puff INHALATION RT-BID 12/17/13 05/07/18 History 250-50 Diskus] Furosemide [Lasix] 20 mg PO DAILY 12/17/13 05/07/18 History Gabapentin [Neurontin] 800 mg PO TID 12/17/13 05/07/18 History Levothyroxine Sodium [Levoxyl] 175 mcg PO DAILY 12/17/13 05/07/18 History Lisinopril [Zestril] 20 mg PO DAILY 12/17/13 05/07/18 History Montelukast [Singulair] 10 mg PO HS 12/17/13 05/07/18 History PARoxetine HCL [Paxil] 50 mg PO DAILY 12/17/13 05/07/18 History Spironolactone [Aldactone] 25 mg PO DAILY 12/17/13 05/07/18 History busPIRone HCL [Buspar] 30 mg PO BID 12/17/13 05/07/18 History lamoTRIgine [LaMICtal] 100 mg PO BID 12/17/13 05/07/18 History LORazepam [Ativan] 1 mg PO BID PRN 03/13/14 05/07/18 History Albuterol Sulfate [Proair Hfa] 1 - 2 puff INHALATION RT-Q6H PRN 05/07/18 History HYDROcodone/APAP 10-325MG [[place] 1 tab PO TID PRN 05/07/18 05/07/18 History 10-325] Magnesium Oxide [Mag-Ox] 400 mg PO DAILY 05/07/18 05/07/18 History Omeprazole 20 mg PO DAILY 05/07/18 05/07/18 History Triamcinolone 0.025% Cream 1 applic TOPICAL BID 05/07/18 05/07/18 History [Kenalog 0.025% Cream] Allergies Allergy/AdvReac Type Severity Reaction Status Date / Time codeine Allergy Unknown Verified 05/07/18 11:34 Childhood egg Allergy Swelling Verified 05/07/18 11:34 Penicillins Allergy Rash/Hives Verified 05/07/18 11:34 Sulfa (Sulfonamide Allergy Rash/Hives Verified 05/07/18 11:34 Antibiotics) Physical Exam Vitals: Vital Signs Temp Pulse Resp BP Pulse Ox 05/07/18 12:00 74 12 156/80 91 L 05/07/18 11:00 71 12 156/80 91 L 05/07/18 10:00 75 12 156/80 93 L 05/07/18 09:00 75 13 156/80 90 L 05/07/18 08:00 97.8 F 64 12 156/80 92 L 05/07/18 07:00 66 11 L 156/80 91 L 05/07/18 06:30 66 11 L 156/80 96 05/07/18 06:00 65 11 L 156/80 91 L 05/07/18 05:30 65 11 L 156/80 92 L 05/07/18 05:22 21 05/07/18 05:00 97.6 F 67 21 175/84 93 L 05/07/18 04:30 63 10 L 95 05/07/18 04:27 64 16 110/50 05/07/18 04:00 65 16 118/66 94 L 05/07/18 03:10 66 14 118/66 96 05/07/18 02:52 16 05/07/18 02:10 65 16 142/77 99 05/07/18 01:23 16 05/06/18 23:44 97.9 F 74 18 154/70 98 Intake and Output 05/07/18 05/07/18 05/07/18 06:59 14:59 22:59 Intake Total 200 Output Total 0 0 Balance 200 0 Intake: Oral 200 Output: Urine 0 0 Stool 0 Other: Voiding Method Bedside Commode Bedside Commode # Voids 0 # Bowel Movements 1 Weight 86.4 kg Constitutional: Well developed, well nourished, no acute distress, non-toxic appearance Eyes: PERRL, conjunctiva normal HENT: Atraumatic, external ears normal, nose normal, oropharynx moist, no pharyngeal exudates. Neck- normal range of motion, no tenderness, supple Respiratory: No respiratory distress, normal breath sounds, no rales, no wheezing Cardiovascular: Normal rate, normal rhythm, no murmurs, no gallops, no rubs GI: Soft, nondistended, normal bowel sounds, nontender, no organomegaly, no mass, no rebound, no guarding : No costovertebral angle tenderness Musculoskeletal: No edema, no tenderness, no deformities. Back- no tenderness Integument: Well hydrated, no rash Lymphatic: No lymphadenopathy noted Neurologic: Alert & oriented x 3, CN 2-12 normal, normal motor function, normal sensory function, no focal deficits noted Psychiatric: Speech and behavior appropriate Results CBC & Chem 7: 05/07/18 00:53 05/07/18 00:53 Labs: Abnormal Lab Results - Last 24 Hours (Table) 05/07/18 05/07/18 05/07/18 Range/Units 00:53 02:49 04:10 Sodium 127 L (137-145) mmol/L Chloride 90 L (98-107) mmol/L BUN 18 H (7-17) mg/dL POC Glucose (mg/dL) 110 H (75-99) mg/dL Ur Leukocyte Esterase Large H (Negative) Urine WBC 9 H (0-5) /hpf Urine Bacteria Rare H (None) /hpf Urine Mucus Rare H (None) /hpf 05/07/18 05/07/18 05/07/18 Range/Units 04:41 07:29 12:05 Sodium (137-145) mmol/L Chloride (98-107) mmol/L BUN (7-17) mg/dL POC Glucose (mg/dL) 133 H 143 H 159 H (75-99) mg/dL Ur Leukocyte Esterase (Negative) Urine WBC (0-5) /hpf Urine Bacteria (None) /hpf Urine Mucus (None) /hpf 05/07/18 Range/Units 17:46 Sodium (137-145) mmol/L Chloride (98-107) mmol/L BUN (7-17) mg/dL POC Glucose (mg/dL) 121 H (75-99) mg/dL Ur Leukocyte Esterase (Negative) Urine WBC (0-5) /hpf Urine Bacteria (None) /hpf Urine Mucus (None) /hpf Thrombosis Risk Factor Assmnt - Choose All That Apply Any of the Below Risk Factors Present?: Yes Each Factor Represents 1 point: Age 41-60 years Other Risk Factors: No Other congenital or acquired thrombophilia - If yes, enter type in comment: No Thrombosis Risk Factor Assessment Total Risk Factor Score: 1 Thrombosis Risk Factor Assessment Level: Low Risk Assessment and Plan Assessment: 1. Numbness and tingling on the left side of the body. 2. Elevated left hemidiaphragm. 3. Acute hyponatremia. 4. Asthma/COPD. 5. Tobacco dependency. 6. Poor historian. 7. Fibromyalgia. 8. Seizure disorder. 9. Generalized osteoarthritis. 10. GERD. 11. Anxiety and depression. The etiology of her numbness and tingling is anxious. Patient with history of anxiety depression and fibromyalgia with generalized body ache on a regular daily basis coming with left sided numbness and tingling the results to continuously in the emergency department which could be related to TIA but other etiology needs to be ruled out neurology was consulted and pulmonary was consulted for left hemidiaphragm elevation which patient is completely asymptomatic. Further imaging order to rule out any cervical spine lesion and consider neurosurgery consultation based on clinical progress. We'll follow-up on test results have physical and neck patient with therapy evaluated the patient and consider discharge based on clinical progress
[2018-05-07] MEDS: SYMBICORT 80-4.5 MCG INHALER INHALATION SCH (19:48)
[2018-05-07 20:02] LABS: Glucose,Whole Blood 119 mg/dL (75-99)
[2018-05-07] MEDS: lamoTRIgine 100 MG TAB PO SCH (20:12)
[2018-05-07] MEDS: TRIAMCINOLONE 0.1% CREAM 80 GM TUBE TOPICAL SCH (20:12)
[2018-05-07] MEDS ORDERED: MONTELUKAST 10 MG TAB PO SCH (21:00)
[2018-05-07] MEDS: NICOTINE 14MG/24HR PATCH TRANSDERM SCH (21:03)
[2018-05-07] MEDS: busPIRone HCl 10 MG TAB PO SCH (21:04)
[2018-05-08 05:13] VITALS: BP 119/56
[2018-05-08 05:46] LABS: Basophils % (A) 0 %; Eosinophils % (A) 1 %; HCT 39.4 % (34.0-46.0); Lymphocytes # (A) 2.6 k/uL (1.0-4.8); Lymphocytes % (A) 41 %; MCH 30.8 pg (25.0-35.0); MCHC 33.1 g/dL (31.0-37.0); MCV 93.1 fL (80.0-100.0); Monocytes # (A) 0.5 k/uL (0-1.0); Monocytes % (A) 8 %; Neutrophils # (A) 3.1 k/uL (1.3-7.7); Neutrophils % (A) 49 %; Platelet Count 167 k/uL (150-450); RBC 4.23 m/uL (3.80-5.40); RDW 12.5 % (11.5-15.5); WBC 6.3 k/uL (3.8-10.6)
[2018-05-08 06:08] LABS: Anion Gap 6 mmol/L; Blood Urea Nitrogen 17 mg/dL (7-17); Calcium 9.5 mg/dL (8.4-10.2); Carbon Dioxide 32 mmol/L (22-30); Chloride 91 mmol/L (98-107); Glucose 78 mg/dL (74-99); Magnesium 1.8 mg/dL (1.6-2.3); Potassium 4.8 mmol/L (3.5-5.1); Sodium 129 mmol/L (137-145)
[2018-05-08] MEDS: LEVOTHYROXINE 100 MCG TAB PO SCH (06:40)
[2018-05-08] MEDS: LEVOTHYROXINE 75 MCG TAB PO SCH (06:40)
[2018-05-08] MEDS: SYMBICORT 80-4.5 MCG INHALER INHALATION SCH (08:16)
[2018-05-08 08:57] LABS: Glucose,Whole Blood 91 mg/dL (75-99)
--- NOTE | 2018-05-08 08:58 | P.PN ---
Subjective Progress Note Date: 05/08/18 Principal diagnosis: Left hemidiaphragm elevation and possible weakness/paralysis Pulmonary consult dated 05/07/2018 62-year-old female with a history of asthma who apparently presents to the emergency department with complaints of left-sided facial numbness and weakness as well as tingling throughout her entire body. The patient states that she has chronic neck issues and she was trying to manipulate her own neck. The patient apparently was evaluated in the emergency department for possible CVA but was found not to have a CVA. It was noted also that she had a chest x-ray that showed an elevated left diaphragm. The patient had a chest x-ray back in 2016 which did not show this elevated left hemidiaphragm. She did go down for a MRI of the cervical and thoracic spine which may shed some light as to why her diaphragm is elevated on the left side. She denies any shortness of breath and difficulty breathing. She does have a history of asthma. Her asthma is well-controlled on Advair and a rescue inhaler. I told her that the results of the MRI may shed some light as to why the left diaphragm is elevated. She may have a lesion in the cervical spine that may explain the left diaphragm elevation. Again she denies any difficulty breathing or any other pulmonary complaints for that matter. On 05/08/2018 patient seen in follow-up in the intensive care unit. She is stable, she is awake and alert, denies any distress, no chest pain, no shortness of breath, patient underwent cervical MRI, which showed moderate to advanced disc/endplate degenerative change which progressed from 2012, multilevel disc osteophyte complexes. At C3 and C4 there was a moderate to severe spinal canal stenosis with a peak canal dimension narrowed to 5.5 mm. Patient's new finding of left hemidiaphragm elevation may be related to cervical spinal canal stenosis. She denies any facial numbness, or weakness, denies any tingling. Lung sounds are coarse, no wheezes noted. She is currently on 4 L per nasal cannula, she was placed on it early this morning, when her pulse ox was noted to be at around 88-89% on room air. She denies any history of obstructive sleep apnea. Not normally wear oxygen at home, we will check home oxygen assessment. No acute issues overnight. Vital signs are stable. From pulmonary/critical care standpoint patient is stable for discharge home once cleared by neurology. Need outpatient follow-up in the pulmonary office for possibility of sniff test Objective - Vital Signs Vital signs: Vital Signs Temp 97.8 F 05/08/18 04:00 Pulse 61 05/08/18 04:00 Resp 10 L 05/08/18 04:00 BP 119/56 05/08/18 04:00 Pulse Ox 96 05/08/18 04:00 Intake & Output 05/07/18 05/08/18 05/08/18 18:59 06:59 18:59 Intake Total 500 Output Total 0 0 Balance 0 500 Intake: Oral 500 Output: Urine 0 0 Stool 0 Other: Voiding Method Bedside Commode Bedside Commode # Voids 0 1 # Bowel Movements 1 - Exam No acute distress, oriented 3. HEENT examination is grossly unremarkable. Mucous membranes are moist. No oral lesions. Neck supple. Full range of motion. No adenopathy thyromegaly or neck vein distention. Cardiovascular examination reveals regular rhythm rate. S1-S2 normal. No S3 or S4. No discernible murmur noted. Lungs reveal coarse breath sounds. Her sounds are equal bilaterally. No adventitious lung sounds including wheezes rhonchi or crackles. Abdomen soft bowel sounds are heard. No masses or tenderness. Extremities are intact. No cyanosis clubbing or edema. Skin is without rash or lesion. Neurologic examination is brief but nonfocal. - Labs CBC & Chem 7: 05/08/18 04:57 05/08/18 04:57 Labs: Abnormal Lab Results - Last 24 Hours (Table) 05/07/18 05/07/18 05/07/18 Range/Units 12:05 17:46 20:00 Sodium (137-145) mmol/L Chloride (98-107) mmol/L Carbon Dioxide (22-30) mmol/L POC Glucose (mg/dL) 159 H 121 H 119 H (75-99) mg/dL 05/08/18 Range/Units 04:57 Sodium 129 L (137-145) mmol/L Chloride 91 L (98-107) mmol/L Carbon Dioxide 32 H (22-30) mmol/L POC Glucose (mg/dL) (75-99) mg/dL Assessment and Plan Plan: Left hemidiaphragm elevation and possible weakness/paralysis, of unclear etiology. The MRI of the cervical spine was completed, and showed progressive degenerative changes of disc/and plate at C3 and C4, and moderate to severe's spinal canal stenosis. There left hemidiaphragm elevation could be related to the cervical canal disc disease No evidence of CVA at this time History of asthma, well-controlled History of diabetes mellitus History of fibromyalgia History of hypertension History of hypothyroidism DJD History of scoliosis and torticollis Plan: Patient is awake and alert, in no acute distress, no numbness, no tingling, no weakness. Remains stable from pulmonary standpoint, patient's elevation of left hemidiaphragm possibly related to the progressive degenerative disc disease of the cervical spine. She will need follow-up in the outpatient setting for sniff test. No acute issues overnight, neurologically patient is without any focal deficits. From pulmonary/critical care standpoint patient is stable for discharge home once cleared by neurology I performed a history & physical examination of the patient and discussed their management with my nurse practitioner, Smita Santiago. I reviewed the nurse practitioner's note and agree with the documented findings and plan of care. Lung sounds are coarse, no wheezes good air entry noted bilaterally. The findings and the impression was discussed with the patient. I attest to the documentation by the nurse practitioner. Time with Patient: Less than 30
[2018-05-08] MEDS ORDERED: FUROSEMIDE 20 MG TAB PO SCH (09:00)
[2018-05-08] MEDS ORDERED: MAGNESIUM OXIDE 400 MG TAB PO SCH (09:00)
[2018-05-08] MEDS: DIVALPROEX 500 MG TABLET.DR PO SCH (09:33)
[2018-05-08] MEDS: GABAPENTIN 400 MG CAP PO SCH (09:33)
[2018-05-08] MEDS: lamoTRIgine 100 MG TAB PO SCH (09:34)
[2018-05-08] MEDS: NICOTINE 14MG/24HR PATCH TRANSDERM SCH (09:34)
[2018-05-08] MEDS: PARoxetine 10 MG TAB PO SCH (09:34)
[2018-05-08] MEDS: SPIRONOLACTONE 25 MG TAB PO SCH (09:34)
[2018-05-08] MEDS: busPIRone HCl 10 MG TAB PO SCH (09:34)
[2018-05-08] MEDS: PANTOPRAZOLE 40 MG TABLET PO SCH (09:34)
[2018-05-08] MEDS: LISINOPRIL 20 MG TAB PO SCH (09:34)
[2018-05-08] MEDS: TRIAMCINOLONE 0.1% CREAM 80 GM TUBE TOPICAL SCH (09:35)
--- NOTE | 2018-05-08 12:16 | P.CNOR ---
History of Present Illness - [facility] Consult date: 05/08/18 Consult reason: neck pain History of present illness: Patient is a pleasant 62-year-old male who presented in regards to weakness at left side. The patient has a long history of neck issues and upper extremity issues in the past. She apparently had been found have torticollis and was trying to do some manipulation of her neck the other day. After doing a manipulation she had significant increase in numbness tingling at her left upper extremity and toward her left side. She said she felt issues with numbness and tingling in her face and neck and left upper extremity with weakness. She also reported slurring of speech and facial drooping. The speech and the drooping was not witnessed. She presented had evaluation and had difficulty with her left upper extremity and had some findings of possible elevation of her left hemidiaphragm as well. Due to this she was evaluated further the possibility of stroke admitted into the intensive care/selective care. Since she has been here in Hospital she has had significant improvement. She has been getting up out of bed on her own and getting to the bathroom. She says her arms are feeling good and she is now having weakness. She says she still has some numbness symptoms at her left side of her neck and her left arm. She is not having any troubles with her facial issues with her breathing order with speech. She has been followed by medicine as well as with neurology and is not had any findings of acute cerebral vascular accident. She denies any recent history or trauma. She has long history of neck issues. Review of Systems as stated per HPI. Patient is chills. She denies shortness breath this point. Denies any weakness in upper extremities at this point. Past Medical History Past Medical History: Asthma, Diabetes Mellitus, Fibromyalgia, Hypertension, Osteoarthritis (OA), Skin Disorder, Thyroid Disorder Additional Past Medical History / Comment(s): cellulitis, herniated disc in neck ,back, scolosis with brace History of Any Multi-Drug Resistant Organisms: None Reported Past Surgical History: Adenoidectomy, Section, Cholecystectomy, Hysterectomy, Tonsillectomy Additional Past Surgical History / Comment(s): gastric bypass Past Anesthesia/Blood Transfusion Reactions: Previous Problems w/ Anesthesia Additional Past Anesthesia/Blood Transfusion Reaction / Comm: itching, some kind of problem after gastric bypass-not sure what happened Past Psychological History: Anxiety, Bipolar, Depression Smoking Status: Current every day smoker Past Alcohol Use History: None Reported Past Drug Use History: None Reported - Past Family History Mother Family Medical History: Congestive Heart Failure (CHF), Hypertension Medications and Allergies Home Medications Medication Instructions Recorded Confirmed Type Divalproex [Depakote] 500 mg PO TID 12/17/13 05/07/18 History Fluticasone/Salmeterol [Advair 1 puff INHALATION RT-BID 12/17/13 05/07/18 History 250-50 Diskus] Furosemide [Lasix] 20 mg PO DAILY 12/17/13 05/07/18 History Gabapentin [Neurontin] 800 mg PO TID 12/17/13 05/07/18 History Levothyroxine Sodium [Levoxyl] 175 mcg PO DAILY 12/17/13 05/07/18 History Lisinopril [Zestril] 20 mg PO DAILY 12/17/13 05/07/18 History Montelukast [Singulair] 10 mg PO HS 12/17/13 05/07/18 History PARoxetine HCL [Paxil] 50 mg PO DAILY 12/17/13 05/07/18 History Spironolactone [Aldactone] 25 mg PO DAILY 12/17/13 05/07/18 History busPIRone HCL [Buspar] 30 mg PO BID 12/17/13 05/07/18 History lamoTRIgine [LaMICtal] 100 mg PO BID 12/17/13 05/07/18 History LORazepam [Ativan] 1 mg PO BID PRN 03/13/14 05/07/18 History Albuterol Sulfate [Proair Hfa] 1 - 2 puff INHALATION RT-Q6H PRN 05/07/18 History HYDROcodone/APAP 10-325MG [[place] 1 tab PO TID PRN 05/07/18 05/07/18 History 10-325] Magnesium Oxide [Mag-Ox] 400 mg PO DAILY 05/07/18 05/07/18 History Omeprazole 20 mg PO DAILY 05/07/18 05/07/18 History Triamcinolone 0.025% Cream 1 applic TOPICAL BID 05/07/18 05/07/18 History [Kenalog 0.025% Cream] Allergies Allergy/AdvReac Type Severity Reaction Status Date / Time codeine Allergy Unknown Verified 05/07/18 11:34 Childhood egg Allergy Swelling Verified 05/07/18 11:34 Penicillins Allergy Rash/Hives Verified 05/07/18 11:34 Sulfa (Sulfonamide Allergy Rash/Hives Verified 05/07/18 11:34 Antibiotics) Physical Examination Osteopathic Statement: *. No significant issues noted on an osteopathic structural exam other than those noted in the History and Physical/Consult. - C Spine: dermatomal strength & reflexes left Shoulder strength: flexion: 5/5 (Her neck has some paravertebral spasm with palpation. His nontender palpation of the midline. She is adequate range of motion but decreased range the left. She also some decreased range of motion in extension. Her upper extremity to full active and passive range of motion without any pain. She is 5 over 5 strength with abduction and elevation at her shoulders. She is 5 out of 5 strength with biceps and triceps analytic manager strength interosseous and thumb extension. She has no hyper reflexive. Negative [place]'s. Her tone is normal.) Results - Labs Labs: Abnormal Lab Results - Last 24 Hours (Table) 05/07/18 05/07/18 05/07/18 Range/Units 12:05 17:46 20:00 Sodium (137-145) mmol/L Chloride (98-107) mmol/L Carbon Dioxide (22-30) mmol/L POC Glucose (mg/dL) 159 H 121 H 119 H (75-99) mg/dL 05/08/18 Range/Units 04:57 Sodium 129 L (137-145) mmol/L Chloride 91 L (98-107) mmol/L Carbon Dioxide 32 H (22-30) mmol/L POC Glucose (mg/dL) (75-99) mg/dL H & H 05/07/18 05/08/18 Range/Units 00:53 04:57 Hgb 13.4 13.0 (11.4-16.0) gm/dL Hct 40.2 39.4 (34.0-46.0) % Coagulation 05/07/18 Range/Units 00:53 INR 1.0 (<1.2) Result Diagrams: 05/08/18 04:57 05/08/18 04:57 - Diagnostic results Cervical MRI with/without contrast: report reviewed, image reviewed (Cervical MRI is reviewed. She does have significant disc degeneration at C3 4 C4 5 and C5 6 with evidence of central and foraminal stenosis at C3 4 and C4 5 and mild stenosis C4-C5 6. There is mild stenosis at C6 7 as well. There is some loss of cervical lordosis. There is no acute cervical cord change that I can see. She was unable to perform the axial aspects of her MRI we do not have a complete study.) Assessment and Plan Assessment: Resolved upper extremity weakness. Cervical stenosis C3 4 C4 5 C5 6 Degenerative disc disease Upper extremity radiculopathy Plan: In regards to patient's cervical spine she does have evidence of stenosis at multiple levels particular at C3 4 and C4 5 and moderately at C5 6. She does not have an obvious cord signal change but the MRI study is incomplete as the patient was not able to move for form the axial aspects of the imaging. She's had great improvement over the last couple days in terms of her strength and her overall symptoms and I do not plan any acute surgical attention. She is being followed by neurology and medicine and I think it is appropriate to consider conservative care and even consider interventional pain management in terms of her cervical spine which could be done outpatient if she needs. She would be a candidate for surgical intervention in the future if her symptoms recur or worsen. He have any plans for acute surgical intervention at this point. It is okay for patient to mobilize and continue to increase her activity to her tolerance but avoid any heavy or rigorous activity or contact activities. From an orthopedic spine standpoint is okay for the patient to be discharged home today as she is comfortably. His cleared with medicine and neurology as well. She will continue conservative care with neurology and we can see her in consultation as needed as an outpatient if her symptoms were to worsen to consider any further intervention. I discussed this with her answered her questions and she seems agreeable.
[2018-05-08 12:29] LABS: Glucose,Whole Blood 103 mg/dL (75-99)
--- NOTE | 2018-05-08 14:00 | P.PN ---
Subjective Progress Note Date: 05/08/18 Principal diagnosis: Left facial numbness left arm numbness This pleasant 62-year-old female continuing to be evaluated by the neurology service. Her symptoms of left facial numbness are essentially gone and left arm numbness are almost gone. Recall that she gives a significant history of torticollis having tried to perform a straightening maneuver on her neck a few days ago. That was the onset of her above symptoms. CT of the brain showed no acute intracranial abnormalities. We doubt any cerebrovascular etiology for her symptoms. I did order a MRI of the cervical and thoracic spine. Unfortunately she was only able to tolerate a partial MRI of the cervical spine which did show some significant spinal canal stenosis and cervical cord compression. She does have a history of this but it seems worse now. Spine surgeon was consult it and will be seeing her in outpatient setting. We did also consult it pulmonology to investigate some breathing problems she was having as well as an elevated left hemidiaphragm. They have also cleared her and we'll follow her up in outpatient setting. At this time my exam she is resting comfortably in a bedside chair in no acute distress. Objective - Vital Signs Vital signs: Vital Signs Temp 98.1 F 05/08/18 08:00 Pulse 63 05/08/18 10:00 Resp 14 05/08/18 10:00 BP 119/56 05/08/18 10:00 Pulse Ox 94 L 05/08/18 08:00 Intake & Output 05/07/18 05/08/18 05/08/18 18:59 06:59 18:59 Intake Total 500 Output Total 0 0 Balance 0 500 Intake: Oral 500 Output: Urine 0 0 Stool 0 Other: Voiding Method Bedside Commode Bedside Commode Bedside Commode # Voids 0 1 1 # Bowel Movements 1 1 - Constitutional General appearance: Present: average body habitus, cooperative, no acute distress - EENT Eyes: Present: EOMI, PERRLA. Absent: abnormal pupil, ptosis ENT: Present: hearing grossly normal - Neck Neck: Absent: normal ROM, rigidity - Respiratory Respiratory: negative: prolonged expiration, prolonged inspiration - Cardiovascular Rhythm: regular - Gastrointestinal General gastrointestinal: Absent: distended, tenderness - Neurologic Neurologic Comment(s): She is alert awake and oriented 3. Speech and language are normal. There is no facial asymmetry. Strength is 5 out of 5 in bilateral lower extremities. No sensory deficit. No tremors or seizure-like activities are seen. Decreased range of motion of the cervical spine. - Labs CBC & Chem 7: 05/08/18 04:57 05/08/18 04:57 Labs: Abnormal Lab Results - Last 24 Hours (Table) 05/07/18 05/07/18 05/08/18 Range/Units 17:46 20:00 04:57 Sodium 129 L (137-145) mmol/L Chloride 91 L (98-107) mmol/L Carbon Dioxide 32 H (22-30) mmol/L POC Glucose (mg/dL) 121 H 119 H (75-99) mg/dL 05/08/18 Range/Units 12:26 Sodium (137-145) mmol/L Chloride (98-107) mmol/L Carbon Dioxide (22-30) mmol/L POC Glucose (mg/dL) 103 H (75-99) mg/dL Assessment and Plan (1) Torticollis Current Visit: Yes Status: Chronic Code(s): M43.6 - TORTICOLLIS SNOMED Code(s): 87444140 (2) Cervicalgia Current Visit: Yes Status: Chronic Code(s): M54.2 - CERVICALGIA SNOMED Code(s): 08517056 (3) Hand numbness Current Visit: Yes Status: Acute Code(s): R20.0 - ANESTHESIA OF SKIN SNOMED Code(s): 008598094 (4) Elevated hemidiaphragm Current Visit: Yes Status: Suspected Code(s): J98.6 - DISORDERS OF DIAPHRAGM SNOMED Code(s): 46626572 (5) COPD (chronic obstructive pulmonary disease) Current Visit: Yes Status: Chronic Code(s): J44.9 - CHRONIC OBSTRUCTIVE PULMONARY DISEASE, UNSPECIFIED SNOMED Code(s): 22084828 (6) Facial numbness Current Visit: Yes Status: Acute Code(s): R20.0 - ANESTHESIA OF SKIN SNOMED Code(s): 066067060 (7) Weakness Current Visit: Yes Status: Resolved Code(s): R53.1 - WEAKNESS SNOMED Code( s): 12647842 (8) Cervical stenosis of spine Current Visit: Yes Status: Acute Code(s): M48.02 - SPINAL STENOSIS, CERVICAL REGION SNOMED Code(s): 41638613 Plan: This patient ,by performing manual stretching maneuvers on her neck, has likely caused some injury or insult around the C3 to C5 levels. Possibly there may be injury to the phrenic nerves causing the left sided hemidiaphragm changes on her chest x-ray. I did order an MRI of the cervical and thoracic spine. As above she was only able to tolerate partial cervical spine MRI. Abnormality stated as above. She will follow up as planned with spine surgeon. She will also follow up outpatient with pulmonology. I doubt any cerebrovascular etiology at this point. She is cleared from a neurological standpoint I have performed a history and physical on the above patient. I have reviewed the above note, and agree.
[2018-05-08 16:30] VITALS: PULSE 83; RESP 27; TEMP 98.9
--- NOTE | 2018-05-08 17:42 | P.DS ---
Providers Date of admission: 05/07/18 04:08 Attending physician: Nayeli Lee Consults: 05/07/18 03:59 Consult Physician Routine Consulting Provider: Cassandra Small Consult Reason/Comments: Weakness; Facial numbness Do you want consulting provider notified?: Yes 05/07/18 11:44 Consult Physician Urgent Consulting Provider: Shaw Brannon Consult Reason/Comments: COPD/Hypoxemia/elevated left hemidiaphragm Do you want consulting provider notified?: Yes 05/08/18 10:18 Consult Physician Urgent Consulting Provider: Rehan Wesley Consult Reason/Comments: Tortacollis, Bulging discs, possible phrenic nerve irritation Do you want consulting provider notified?: Yes Primary care physician: Luis Miguel [facility] Course: This is 62 years old female with past medical history significant for cervical stenosis presented to the hospital with left sided numbness and tingling. Patient MRI showed cervical spine stenosis similar to prior evaluation as it was noted by neurosurgery who recommended follow-up outpatient closely regarding her cervical spine and possible intervention in the future patient was adamant about going home evaluated by pulmonary for elevated left hemidiaphragm who felt that this is normal at this point and patient may benefit from close follow-up with her primary care physician within 7 days from discharge patient was discharged in stable condition where she denied any neurological deficit Patient Condition at Discharge: Good Plan - Discharge Summary New Discharge Prescriptions: No Action Furosemide [Lasix] 20 mg PO DAILY Divalproex [Depakote] 500 mg PO TID Spironolactone [Aldactone] 25 mg PO DAILY Lisinopril [Zestril] 20 mg PO DAILY Fluticasone/Salmeterol [Advair 250-50 Diskus] 1 puff INHALATION RT-BID Levothyroxine Sodium [Levoxyl] 175 mcg PO DAILY lamoTRIgine [LaMICtal] 100 mg PO BID busPIRone HCL [Buspar] 30 mg PO BID PARoxetine HCL [Paxil] 50 mg PO DAILY Montelukast [Singulair] 10 mg PO HS Gabapentin [Neurontin] 800 mg PO TID LORazepam [Ativan] 1 mg PO BID PRN PRN Reason: Anxiety Omeprazole 20 mg PO DAILY Albuterol Sulfate [Proair Hfa] 1 - 2 puff INHALATION RT-Q6H PRN PRN Reason: Shortness Of Breath Magnesium Oxide [Mag-Ox] 400 mg PO DAILY Triamcinolone 0.025% Cream [Kenalog 0.025% Cream] 1 applic TOPICAL BID HYDROcodone/APAP 10-325MG [[place] 10-325] 1 tab PO TID PRN PRN Reason: Pain Discharge Medication List Divalproex [Depakote] 500 mg PO TID 12/17/13 [History] Fluticasone/Salmeterol [Advair 250-50 Diskus] 1 puff INHALATION RT-BID 12/17/13 [History] Furosemide [Lasix] 20 mg PO DAILY 12/17/13 [History] Gabapentin [Neurontin] 800 mg PO TID 12/17/13 [History] Levothyroxine Sodium [Levoxyl] 175 mcg PO DAILY 12/17/13 [History] Lisinopril [Zestril] 20 mg PO DAILY 12/17/13 [History] Montelukast [Singulair] 10 mg PO HS 12/17/13 [History] PARoxetine HCL [Paxil] 50 mg PO DAILY 12/17/13 [History] Spironolactone [Aldactone] 25 mg PO DAILY 12/17/13 [History] busPIRone HCL [Buspar] 30 mg PO BID 12/17/13 [History] lamoTRIgine [LaMICtal] 100 mg PO BID 12/17/13 [History] LORazepam [Ativan] 1 mg PO BID PRN 03/13/14 [History] Albuterol Sulfate [Proair Hfa] 1 - 2 puff INHALATION RT-Q6H PRN 05/07/18 [ History] HYDROcodone/APAP 10-325MG [[place] 10-325] 1 tab PO TID PRN 05/07/18 [History] Magnesium Oxide [Mag-Ox] 400 mg PO DAILY 05/07/18 [History] Omeprazole 20 mg PO DAILY 05/07/18 [History] Triamcinolone 0.025% Cream [Kenalog 0.025% Cream] 1 applic TOPICAL BID 05/07/18 [History] Follow up Appointment(s)/Referral(s): Rehan Wesley DO [Doctor of Osteopathic Medicine] - As Needed (Okay to follow up as needed for cervical radiculopathy) Shaw Brannon DO [Doctor of Osteopathic Medicine] - 1 Week Luis Miguel Mckinney MD [Primary Care Provider] - As Needed Patient Instructions/Handouts: COPD (Chronic Obstructive Pulmonary Disease) (DC )
== END 2018-05-08 16:50 | disposition home or self-care (01) | DRG 552 ==
LOC: EC 23:42 → 2SICU 05-07 04:08
PROVIDERS: ADMIT Internal Medicine; ATTEND Internal Medicine
DX: M48.02 Spinal stenosis, cervical region (principal); E87.1 Hypo-osmolality and hyponatremia; G95.20 Unspecified cord compression; M50.11 Cervical disc disorder with radiculopathy, high cervical region; E03.9 Hypothyroidism, unspecified; E11.9 Type 2 diabetes mellitus without complications; F17.200 Nicotine dependence, unspecified, uncomplicated; F41.9 Anxiety disorder, unspecified; G40.909 Epilepsy, unspecified, not intractable, without status epilepticus; G89.29 Other chronic pain; I10 Essential (primary) hypertension; J44.9 Chronic obstructive pulmonary disease, unspecified; K21.9 Gastro-esophageal reflux disease without esophagitis; M15.9 Polyosteoarthritis, unspecified; M25.78 Osteophyte, vertebrae; M41.9 Scoliosis, unspecified; M43.6 Torticollis; M79.7 Fibromyalgia; R29.810 Facial weakness; R47.81 Slurred speech; F32.9 Major depressive disorder, single episode, unspecified; J98.6 Disorders of diaphragm; Z79.899 Other long term (current) drug therapy; Z79.890 Hormone replacement therapy; Z88.5 Allergy status to narcotic agent; Z88.0 Allergy status to penicillin; Z88.2 Allergy status to sulfonamides; Z91.012 Allergy to eggs; Z98.84 Bariatric surgery status; Z90.710 Acquired absence of both cervix and uterus; Z90.49 Acquired absence of other specified parts of digestive tract; Z82.49 Family history of ischemic heart disease and other diseases of the circulatory system
CPT/HCPCS: 36415; 70450; 70496; 70498; 71046; 72141; 80048; 80053; 81001; 82550; 82553; 83735; 84484; 85025; 85610; 85730; 93005; 94640; 96374; 96375; 99285

== ENCOUNTER 2018-06-18 18:34 | Emergency (ER) | payer MEDICARE ==
[2018-06-18 18:55] VITALS: TEMP 97.8
[2018-06-18] MEDS ORDERED: FAMOTIDINE 20 MG/2 ML VIAL IV STA (19:22)
[2018-06-18] MEDS ORDERED: diphenhydrAMINE 50 MG/ML 1 ML VIAL IVP STA (19:22)
[2018-06-18] MEDS ORDERED: methylPREDNISolone SOD SUCCI 125 MG/2 ML VIAL IV STA (19:22)
[2018-06-18] MEDS ORDERED: SODIUM CHLORIDE 0.9% 1,000 ML IV STA (19:44)
[2018-06-18 19:58] VITALS: RESP 16
[2018-06-18 21:22] VITALS: BP 110/58; PULSE 85
--- NOTE | 2018-06-18 21:24 | ED ---
General Adult HPI - General Chief complaint: Allergic Reaction Stated complaint: Poss Allergic Reaction Source: patient, RN notes reviewed, old records reviewed Mode of arrival: ambulatory Limitations: no limitations - History of Present Illness Initial comments: 63-year-old female patient past history of psychiatric disorders presents to ED after she believes she suffered a ALLERGIC reaction. Patient states that approximately 5:30 PM she ate cheeseburger and taking meloxicam. Approximately 40 minutes later patient began to develop diarrhea, felt she was flushed, became concerned she is experiencing ALLERGIC reaction. Patient did not have a documented history of anaphylaxis. Patient denied any respiratory distress, rash, swelling of face. Patient denied any chest pain, shortness of breath, abdominal pain, nausea/vomiting, difficulty breathing, chest pain. Systemic: Pt denies fatigue, myalgia, fever/chills, rash. Pt denies weakness, night sweats, weight loss. Neuro: Pt denies headache, visual disturbances, syncope or pre-syncope. HEENT: Pt denies ocular discharge or irritation, otalgia, rhinorrhea, pharyngitis or notable lymphadenopathy. Cardiopulmonary: Pt denies chest pain, SOB, heart palpitations, dyspnea on exertion. Abdominal/GI: Pt denies abdominal pain, n/v/. : Pt denies dysuria, burning w/ urination, frequency/urgency. Denies new onset urinary or bowel incontinence. MSK: Pt denies myalgia, loss of strength or function in extremities. Neuro: Pt denies weakness, focal deficit, no localized weakness. - Related Data Home Medications Medication Instructions Recorded Confirmed Divalproex [Depakote] 500 mg PO TID 12/17/13 05/07/18 Fluticasone/Salmeterol [Advair 1 puff INHALATION RT-BID 12/17/13 05/07/18 250-50 Diskus] Furosemide [Lasix] 20 mg PO DAILY 12/17/13 05/07/18 Gabapentin [Neurontin] 800 mg PO TID 12/17/13 05/07/18 Levothyroxine Sodium [Levoxyl] 175 mcg PO DAILY 12/17/13 05/07/18 Lisinopril [Zestril] 20 mg PO DAILY 12/17/13 05/07/18 Montelukast [Singulair] 10 mg PO HS 12/17/13 05/07/18 PARoxetine HCL [Paxil] 50 mg PO DAILY 12/17/13 05/07/18 Spironolactone [Aldactone] 25 mg PO DAILY 12/17/13 05/07/18 busPIRone HCL [Buspar] 30 mg PO BID 12/17/13 05/07/18 lamoTRIgine [LaMICtal] 100 mg PO BID 12/17/13 05/07/18 LORazepam [Ativan] 1 mg PO BID PRN 03/13/14 05/07/18 Albuterol Sulfate [Proair Hfa] 1 - 2 puff INHALATION RT-Q6H PRN 05/07/18 HYDROcodone/APAP 10-325MG [[place] 1 tab PO TID PRN 05/07/18 05/07/18 10-325] Magnesium Oxide [Mag-Ox] 400 mg PO DAILY 05/07/18 05/07/18 Omeprazole 20 mg PO DAILY 05/07/18 05/07/18 Triamcinolone 0.025% Cream 1 applic TOPICAL BID 05/07/18 05/07/18 [Kenalog 0.025% Cream] Previous Rx's Medication Instructions Recorded predniSONE 50 mg PO DAILY #5 tab 06/18/18 Allergies Allergy/AdvReac Type Severity Reaction Status Date / Time codeine Allergy Unknown Verified 06/18/18 18:52 Childhood egg Allergy Swelling Verified 06/18/18 18:52 Penicillins Allergy Rash/Hives Verified 06/18/18 18:52 Sulfa (Sulfonamide Allergy Rash/Hives Verified 06/18/18 18:52 Antibiotics) Review of Systems ROS Statement: Those systems with pertinent positive or pertinent negative responses have been documented in the HPI. ROS Other: All systems not noted in ROS Statement are negative. Past Medical History Past Medical History: Asthma, Diabetes Mellitus, Fibromyalgia, Hypertension, Osteoarthritis (OA), Skin Disorder, Thyroid Disorder Additional Past Medical History / Comment(s): cellulitis, herniated disc in neck ,back, scolosis with brace History of Any Multi-Drug Resistant Organisms: None Reported Past Surgical History: Adenoidectomy, Section, Cholecystectomy, Hysterectomy, Tonsillectomy Additional Past Surgical History / Comment(s): gastric bypass Past Anesthesia/Blood Transfusion Reactions: Previous Problems w/ Anesthesia Additional Past Anesthesia/Blood Transfusion Reaction / Comment(s): itching, some kind of problem after gastric bypass-not sure what happened Past Psychological History: Anxiety, Bipolar, Depression Smoking Status: Current every day smoker Past Alcohol Use History: None Reported Past Drug Use History: None Reported - Past Family History Mother Family Medical History: Congestive Heart Failure (CHF), Hypertension General Exam - General Exam Comments Initial Comments: Constitutional: NAD, AOX3, Pt has pleasant affect. HEENT: NC/AT, trachea midline, neck supple, no lymphadenopathy. Posterior pharynx non erythematous, without exudates. External ears appear normal, without discharge. Mucous membranes moist. Eyes PERRLA, EOM intact. There is no scleral icterus. No pallor noted. No angioedema. No posterior pharyngeal edema. Cardiopulmonary: RRR, no murmurs, rubs or gallops, no JVD noted. Lungs CTAB in anterior and posterior flores. No peripheral edema. Abdominal exam: Abdomen soft and non-distended. Abdomen non-tender to palpation in all 4 quadrants. Bowel sounds active in LLQ. No hepatosplenomegaly. Neuro: CN II-XII intact. No focal tenderness Derm: No rash noted Limitations: no limitations Course Vital Signs 06/18/18 06/18/18 06/18/18 18:52 19:55 21:00 Temperature 97.8 F Pulse Rate 83 68 85 Respiratory 18 16 16 Rate Blood Pressure 103/67 96/47 110/58 O2 Sat by Pulse 95 95 94 L Oximetry Medical Decision Making - Medical Decision Making 63-year-old female patient past history of psychiatric disorders presents to ED after she believes she suffered a ALLERGIC reaction. Patient states that approximately 5:30 PM she ate cheeseburger and taking meloxicam. Approximately 40 minutes later patient began to develop diarrhea, felt she was flushed, became concerned she is experiencing ALLERGIC reaction. Patient did not have a documented history of anaphylaxis. Patient denied any respiratory distress, rash, swelling of face. Patient denied any chest pain, shortness of breath, abdominal pain, nausea/vomiting, difficulty breathing, chest pain. Physical exam did not display any acute pathology, systems examined including neuro, HEENT, cardiopulmonary, abdominal, MSK. Patient was given Pepcid, solu-medrol, Benadryl and ED as well as 1 L of normal saline. Patient was much improved after this pharmacologic intervention. Patient states she's feels better, like to go home. She to avoid both cheeseburgers and meloxicam medication. Patient prescribed 5 days prednisone 50 mg. Patient to follow-up with PCP in 1-2 days. Patient to return to ED if any signs or symptoms develop including facial swelling, difficulty breathing, flushing, rash, abdominal pain, nausea vomiting diarrhea. Case discussed with Dr. Haji. Disposition Clinical Impression: Allergic reaction Disposition: HOME SELF-CARE Condition: Good Instructions: General Allergic Reaction (ED) Additional Instructions: Patient to adhere to previously discussed treatment plan and will take medication(s) as directed. Patient to follow up with PCP in 1-2 days. Patient to return to ED if symptoms do not improve. Prescriptions: predniSONE 50 mg PO DAILY #5 tab Is patient prescribed a controlled substance at d/c from ED?: No Referrals: Andrzej Wheeler MD [Primary Care Provider] - 1-2 days Time of Disposition: 21:42
== END 2018-06-18 21:46 | disposition home or self-care (01) ==
LOC: EC 18:34
DX: T78.1XXA Other adverse food reactions, not elsewhere classified, initial encounter (principal); T39.395A Adverse effect of other nonsteroidal anti-inflammatory drugs [NSAID], initial encounter; R19.7 Diarrhea, unspecified; J45.909 Unspecified asthma, uncomplicated; M79.7 Fibromyalgia; I10 Essential (primary) hypertension; E07.9 Disorder of thyroid, unspecified; F41.9 Anxiety disorder, unspecified; F32.9 Major depressive disorder, single episode, unspecified; F17.200 Nicotine dependence, unspecified, uncomplicated; Z79.899 Other long term (current) drug therapy; Z88.5 Allergy status to narcotic agent; Z91.012 Allergy to eggs; Z88.0 Allergy status to penicillin; Z88.2 Allergy status to sulfonamides
CPT/HCPCS: 99284; 96374; 96375 ×2; 96361; J1200; J2930

== ENCOUNTER 2018-06-20 06:07 | Observation (INO) | payer MEDICARE ==
--- NOTE | 2018-06-20 06:29 | ED ---
GI Bleed HPI - General Chief complaint: GI Bleed Stated complaint: diarrhea,blood in stool Time Seen by Provider: 06/20/18 06:27 Source: patient Mode of arrival: ambulatory Limitations: no limitations - History of Present Illness Initial comments: Haydee is a 63-year-old female with extensive past medical history presents the ED today for reevaluation of persistent diarrhea. Patient was seen and evaluated yesterday for sudden onset of explosive diarrhea which she attributed to take new NSAID medication. Patient reports at the time of being evaluated she had actually examined her stool however after going home she has had 2 more stools and noted that both were grossly bloody with bright red blood upon wiping. She denies any associated lightheadedness, chest pain, palpitations or shortness of breath. Patient does have anxiety disorder and is experiencing a panic attack over the symptoms. She does report severe abdominal cramping followed by diarrhea. However abdomen is soft and nontender when she is not having bouts of diarrhea. Patient reports she's having diarrhea once every 3-4 hours. She reports she had some old prescription for Bentyl which she took 2 of in the past 24 hours she is uncertain if these have improved her symptoms. - Related Data Home Medications Medication Instructions Recorded Confirmed Divalproex [Depakote] 500 mg PO TID 12/17/13 05/07/18 Fluticasone/Salmeterol [Advair 1 puff INHALATION RT-BID 12/17/13 05/07/18 250-50 Diskus] Furosemide [Lasix] 20 mg PO DAILY 12/17/13 05/07/18 Gabapentin [Neurontin] 800 mg PO TID 12/17/13 05/07/18 Levothyroxine Sodium [Levoxyl] 175 mcg PO DAILY 12/17/13 05/07/18 Lisinopril [Zestril] 20 mg PO DAILY 12/17/13 05/07/18 Montelukast [Singulair] 10 mg PO HS 12/17/13 05/07/18 PARoxetine HCL [Paxil] 50 mg PO DAILY 12/17/13 05/07/18 Spironolactone [Aldactone] 25 mg PO DAILY 12/17/13 05/07/18 busPIRone HCL [Buspar] 30 mg PO BID 12/17/13 05/07/18 lamoTRIgine [LaMICtal] 100 mg PO BID 12/17/13 05/07/18 LORazepam [Ativan] 1 mg PO BID PRN 03/13/14 05/07/18 Albuterol Sulfate [Proair Hfa] 1 - 2 puff INHALATION RT-Q6H PRN 05/07/18 HYDROcodone/APAP 10-325MG [[place] 1 tab PO TID PRN 05/07/18 05/07/18 10-325] Magnesium Oxide [Mag-Ox] 400 mg PO DAILY 05/07/18 05/07/18 Omeprazole 20 mg PO DAILY 05/07/18 05/07/18 Triamcinolone 0.025% Cream 1 applic TOPICAL BID 05/07/18 05/07/18 [Kenalog 0.025% Cream] Previous Rx's Medication Instructions Recorded predniSONE 50 mg PO DAILY #5 tab 06/18/18 Allergies Allergy/AdvReac Type Severity Reaction Status Date / Time codeine Allergy Unknown Verified 06/20/18 06:15 Childhood egg Allergy Swelling Verified 06/20/18 06:15 Penicillins Allergy Rash/Hives Verified 06/20/18 06:15 Sulfa (Sulfonamide Allergy Rash/Hives Verified 06/20/18 06:15 Antibiotics) Review of Systems ROS Statement: Those systems with pertinent positive or pertinent negative responses have been documented in the HPI. ROS Other: All systems not noted in ROS Statement are negative. Past Medical History Past Medical History: Asthma, Diabetes Mellitus, Fibromyalgia, Hypertension, Osteoarthritis (OA), Skin Disorder, Thyroid Disorder Additional Past Medical History / Comment(s): cellulitis, herniated disc in neck ,back, scolosis with brace History of Any Multi-Drug Resistant Organisms: None Reported Past Surgical History: Adenoidectomy, Section, Cholecystectomy, Hysterectomy, Tonsillectomy Additional Past Surgical History / Comment(s): gastric bypass Past Anesthesia/Blood Transfusion Reactions: Previous Problems w/ Anesthesia Additional Past Anesthesia/Blood Transfusion Reaction / Comment(s): itching, some kind of problem after gastric bypass-not sure what happened Past Psychological History: Anxiety, Bipolar, Depression Smoking Status: Current every day smoker Past Alcohol Use History: None Reported Past Drug Use History: None Reported - Past Family History Mother Family Medical History: Congestive Heart Failure (CHF), Hypertension General Exam - General Exam Comments Initial Comments: Physical Exam GENERAL: Patient is well-developed and well-nourished. Patient is nontoxic and well- hydrated and is in no distress. HENT: Normocephalic, Atraumatic. EYES: PERRL, EOMI PULMONARY: Unlabored respirations. No audible rales rhonchi or wheezing was noted. CARDIOVASCULAR: There is a regular rate and rhythm without any murmurs gallops or rubs. ABDOMEN: Soft and nontender with normal bowel sounds. SKIN: Skin is clear with no lesions or rashes and otherwise unremarkable. : All external exam, rectal exam with normal tone, palpable internal hemorrhoids, grossly bloody stool NEUROLOGIC: Patient is alert and oriented x3. Moving all extremities spontaneously MUSCULOSKELETAL: Normal extremities with adequate strength and full range of motion. No lower extremity swelling or edema. No calf tenderness. PSYCHIATRIC: Normal psychiatric evaluation. Limitations: no limitations Limitations: no limitations Course Vital Signs 06/20/18 06:12 Temperature 97.8 F Pulse Rate 80 Respiratory 16 Rate Blood Pressure 194/83 O2 Sat by Pulse 95 Oximetry Medical Decision Making - Medical Decision Making Patient was seen and evaluated, history was obtained from the patient and review of medical record Physical exam reveals a very well-appearing 63-year-old female who is very anxious Rectal exam reveals bright red blood concerning for a lower abdominal GI bleed Patient reports her last colonoscopy was [address] Park, she was told she had polyps at that time no history of diverticulosis or diverticulitis to her knowledge. Hemoglobin is 13.8 She care was discussed with the patient's primary care physician Dr. Wheeler who is very familiar with the patient, he agrees with the plan to place the patient in observation with a consult to surgery who has performed her previous colonoscopies. Admission orders were placed. Patient was updated on the plan. - Lab Data Result diagrams: 06/20/18 06:45 06/20/18 06:45 Lab Results 06/20/18 06/20/18 06/20/18 Range/Units 06:45 06:45 06:50 WBC 14.0 H (3.8-10.6) k/uL RBC 4.43 (3.80-5.40) m/uL Hgb 13.8 (11.4-16.0) gm/dL Hct 40.7 (34.0-46.0) % MCV 91.9 (80.0-100.0) fL MCH 31.2 (25.0-35.0) pg MCHC 34.0 (31.0-37.0) g/dL RDW 12.9 (11.5-15.5) % Plt Count 192 (150-450) k/uL Neutrophils % 73 % Lymphocytes % 17 % Monocytes % 8 % Eosinophils % 1 % Basophils % 0 % Neutrophils # 10.2 H (1.3-7.7) k/uL Lymphocytes # 2.4 (1.0-4.8) k/uL Monocytes # 1.1 H (0-1.0) k/uL Eosinophils # 0.1 (0-0.7) k/uL Basophils # 0.0 (0-0.2) k/uL Sodium 131 L (137-145) mmol/L Potassium 4.6 (3.5-5.1) mmol/L Chloride 96 L (98-107) mmol/L Carbon Dioxide 29 (22-30) mmol/L Anion Gap 6 mmol/L BUN 12 (7-17) mg/dL Creatinine 0.58 (0.52-1.04) mg/dL Est GFR (CKD-EPI)AfAm >90 (>60 ml/min/1.73 sqM) Est GFR (CKD-EPI)NonAf >90 (>60 ml/min/1.73 sqM) Glucose 106 H (74-99) mg/dL Calcium 9.8 (8.4-10.2) mg/dL Total Bilirubin 0.3 (0.2-1.3) mg/dL AST 21 (14-36) U/L ALT 23 (9-52) U/L Alkaline Phosphatase 72 (38-126) U/L Total Protein 5.8 L (6.3-8.2) g/dL Albumin 3.4 L (3.5-5.0) g/dL Stool Occult Blood Negative (Negative) Disposition Clinical Impression: Hematochezia Disposition: ADMITTED IP TO THIS HOSP Instructions: Gastrointestinal Bleeding (ED) Referrals: Andrzej Wheeler MD [Primary Care Provider] - 1-2 days
[2018-06-20 07:00] LABS: Basophils % (A) 0 %; Eosinophils # (A) 0.1 k/uL (0-0.7); Eosinophils % (A) 1 %; HCT 40.7 % (34.0-46.0); HGB 13.8 gm/dL (11.4-16.0); Lymphocytes # (A) 2.4 k/uL (1.0-4.8); Lymphocytes % (A) 17 %; MCH 31.2 pg (25.0-35.0); MCV 91.9 fL (80.0-100.0); Mean Platelet Volume 6.6; Monocytes # (A) 1.1 k/uL (0-1.0); Monocytes % (A) 8 %; Neutrophils # (A) 10.2 k/uL (1.3-7.7); Neutrophils % (A) 73 %; Platelet Count 192 k/uL (150-450); RBC 4.43 m/uL (3.80-5.40); RDW 12.9 % (11.5-15.5)
[2018-06-20 07:12] LABS: ALT 23 U/L (9-52); AST 21 U/L (14-36); Albumin 3.4 g/dL (3.5-5.0); Alkaline Phosphatase 72 U/L (38-126); Anion Gap 6 mmol/L; Blood Urea Nitrogen 12 mg/dL (7-17); Calcium 9.8 mg/dL (8.4-10.2); Carbon Dioxide 29 mmol/L (22-30); Chloride 96 mmol/L (98-107); Glucose 106 mg/dL (74-99); Potassium 4.6 mmol/L (3.5-5.1); Sodium 131 mmol/L (137-145); Total Bilirubin 0.3 mg/dL (0.2-1.3); Total Protein 5.8 g/dL (6.3-8.2)
[2018-06-20] MEDS ORDERED: NALOXONE 0.4 MG/ML 1 ML VIAL IV PRN (07:22)
[2018-06-20 07:35] LABS: Appearance,Urine Clear (Clear); Bilirubin,Urine Negative (Negative); Blood,Urine Small (Negative); Color,Urine Light Yellow; Glucose,Urine (UA) Negative (Negative); Ketones,Urine Negative (Negative); Leukocyte Esterase,Urine Negative (Negative); Nitrite,Urine Negative (Negative); Protein,Urine Negative (Negative); RBC,Urine <1 /hpf (0-5); Specific Gravity,Urine 1.005 (1.001-1.035); Urobilinogen,Urine <2.0 mg/dL (<2.0); WBC,Urine 2 /hpf (0-5)
[2018-06-20] MEDS: PANTOPRAZOLE 40 MG/10 ML VIAL IV SCH (10:31)
--- NOTE | 2018-06-20 10:41 | P.GSCN ---
History of Present Illness Consult date: 06/20/18 Reason for Consult: Diarrhea and rectal bleeding History of present illness: The patient is a 63-year-old female known to me. I did a colonoscopy at [facility] in 2016. She had had sudden onset of mid abdominal pain followed by explosive diarrhea. The pain was crampy. SHe had several bouts every few hours. She became very concerned and had a panic attack when she looked and there was elvira blood. In questioning the patient had been on antibiotic and steroids within the last few months. This was for bronchitis. She said she didn't have any perianal pain. She doesn't typically have any blood in the stool but does not check, regular basis. Since being at the hospital she hasn't had any further diarrhea. Denies any nausea or vomiting. She is hungry and thirsty. She is also very anxious and she says worrying about the bleeding is causing her to have a panic attack where she feels like she's being paralyzed. The patient's requesting something for her nerves. Review of Systems All systems: negative - Psychiatric Psychiatric Comment(s): Hasn't been able to sleep for 2 days due to the anxiety Reports anxiety, Reports anxiety attacks, Reports change in sleep habits, Reports irritability Past Medical History Past Medical History: Asthma, COPD, Diabetes Mellitus, Fibromyalgia, GERD/Reflux , Hypertension, Osteoarthritis (OA), Pneumonia, Pulmonary Embolus (PE), Skin Disorder, Thyroid Disorder Additional Past Medical History / Comment(s): Cervical disc disease/stenosis, scoliosis, wears back brace, recently having numbness/tingling L side of face/ neck, recently saw four slide machine setter for L hemidiaphragmatic elevation-pt states she was told this was probably genetic, recently bronchitis and past bronchitis , pt states recent med change (water pill) d/t electrolyte problem/kidney function being affected, pt states she has had pulmonary emboli, past bilateral lower extremity cellulitis, edema lower extremities, IBS, hemorrhoids, benign colon polyps, sinus problems, UTIs, bacteremia/sepsis, cardiac murmur, past L ankle and L wrist fractures. History of Any Multi-Drug Resistant Organisms: None Reported Past Surgical History: Adenoidectomy, Section, Cholecystectomy, Hysterectomy, Tonsillectomy Additional Past Surgical History / Comment(s): EGD, colonoscopies, gastric bypass, surgery for deviated septum Past Anesthesia/Blood Transfusion Reactions: Previous Problems w/ Anesthesia Additional Past Anesthesia/Blood Transfusion Reaction / Comm: itching, some kind of problem after gastric bypass-not sure what happened Smoking Status: Current every day smoker - Past Family History Mother Family Medical History: Congestive Heart Failure (CHF), Hypertension Father Additional Family Medical History / Comment(s): Father at the age of 45 yrs d/t having had rheumatic fever as a child and heart valve disease. Medications and Allergies Home Medications Medication Instructions Recorded Confirmed Type Divalproex [Depakote] 500 mg PO TID 12/17/13 06/20/18 History Fluticasone/Salmeterol [Advair 1 puff INHALATION RT-BID 12/17/13 06/20/18 History 250-50 Diskus] Furosemide [Lasix] 20 mg PO DAILY 12/17/13 05/07/18 History Gabapentin [Neurontin] 800 mg PO TID 12/17/13 06/20/18 History Levothyroxine Sodium [Levoxyl] 175 mcg PO DAILY 12/17/13 06/20/18 History Lisinopril [Zestril] 20 mg PO DAILY 12/17/13 06/20/18 History Montelukast [Singulair] 10 mg PO HS 12/17/13 06/20/18 History PARoxetine HCL [Paxil] 50 mg PO DAILY 12/17/13 06/20/18 History Spironolactone [Aldactone] 25 mg PO DAILY 12/17/13 05/07/18 History busPIRone HCL [Buspar] 30 mg PO BID 12/17/13 06/20/18 History lamoTRIgine [LaMICtal] 100 mg PO BID 12/17/13 06/20/18 History LORazepam [Ativan] 1 mg PO BID PRN 03/13/14 06/20/18 History Albuterol Sulfate [Proair Hfa] 1 - 2 puff INHALATION RT-Q6H PRN 05/07/18 History HYDROcodone/APAP 10-325MG [[place] 1 tab PO TID PRN 05/07/18 06/20/18 History 10-325] Magnesium Oxide [Mag-Ox] 400 mg PO DAILY 05/07/18 06/20/18 History Omeprazole 20 mg PO DAILY 05/07/18 06/20/18 History Triamcinolone 0.025% Cream 1 applic TOPICAL BID 05/07/18 06/20/18 History [Kenalog 0.025% Cream] Allergies Allergy/AdvReac Type Severity Reaction Status Date / Time codeine Allergy Unknown Verified 06/20/18 07:58 Childhood egg Allergy Swelling Verified 06/20/18 07:58 Penicillins Allergy Rash/Hives Verified 06/20/18 07:58 Sulfa (Sulfonamide Allergy Rash/Hives Verified 06/20/18 07:58 Antibiotics) Surgical - Exam Osteopathic Statement: *. No significant issues noted on an osteopathic structural exam other than those noted in the History and Physical/Consult. Vital Signs Temp Pulse Resp BP Pulse Ox 97.8 F 80 16 194/83 95 06/20/18 06:12 06/20/18 06:12 06/20/18 06:12 06/20/18 06:12 06/20/18 06:12 - General Appears anxious well developed, well nourished - Eyes normal ocular movement - ENT normal mucosa - Neck trachea midline - Respiratory normal respiratory effort, clear to auscultation absent: wheezing - Cardiovascular Rhythm: regular - Abdomen Abdomen: soft, non tender, bowel sounds, no guarding, no rigid, no distended Results - Labs 06/20/18 06:45 06/20/18 06:45 Abnormal Lab Results - Last 24 Hours (Table) 06/20/18 06/20/18 06/20/18 Range/Units 06:45 06:45 07:14 WBC 14.0 H (3.8-10.6) k/uL Neutrophils # 10.2 H (1.3-7.7) k/uL Monocytes # 1.1 H (0-1.0) k/uL Sodium 131 L (137-145) mmol/L Chloride 96 L (98-107) mmol/L Glucose 106 H (74-99) mg/dL Total Protein 5.8 L (6.3-8.2) g/dL Albumin 3.4 L (3.5-5.0) g/dL Urine Blood Small H (Negative) Diabetes panel 06/20/18 Range/Units 06:45 Sodium 131 L (137-145) mmol/L Potassium 4.6 (3.5-5.1) mmol/L Chloride 96 L (98-107) mmol/L Carbon Dioxide 29 (22-30) mmol/L BUN 12 (7-17) mg/dL Creatinine 0.58 (0.52-1.04) mg/dL Glucose 106 H (74-99) mg/dL Calcium 9.8 (8.4-10.2) mg/dL AST 21 (14-36) U/L ALT 23 (9-52) U/L Alkaline Phosphatase 72 (38-126) U/L Total Protein 5.8 L (6.3-8.2) g/dL Albumin 3.4 L (3.5-5.0) g/dL Calcium panel 06/20/18 Range/Units 06:45 Calcium 9.8 (8.4-10.2) mg/dL Albumin 3.4 L (3.5-5.0) g/dL Pituitary panel 06/20/18 Range/Units 06:45 Sodium 131 L (137-145) mmol/L Potassium 4.6 (3.5-5.1) mmol/L Chloride 96 L (98-107) mmol/L Carbon Dioxide 29 (22-30) mmol/L BUN 12 (7-17) mg/dL Creatinine 0.58 (0.52-1.04) mg/dL Glucose 106 H (74-99) mg/dL Calcium 9.8 (8.4-10.2) mg/dL Adrenal panel 06/20/18 Range/Units 06:45 Sodium 131 L (137-145) mmol/L Potassium 4.6 (3.5-5.1) mmol/L Chloride 96 L (98-107) mmol/L Carbon Dioxide 29 (22-30) mmol/L BUN 12 (7-17) mg/dL Creatinine 0.58 (0.52-1.04) mg/dL Glucose 106 H (74-99) mg/dL Calcium 9.8 (8.4-10.2) mg/dL Total Bilirubin 0.3 (0.2-1.3) mg/dL AST 21 (14-36) U/L ALT 23 (9-52) U/L Alkaline Phosphatase 72 (38-126) U/L Total Protein 5.8 L (6.3-8.2) g/dL Albumin 3.4 L (3.5-5.0) g/dL Assessment and Plan (1) Diarrhea Current Visit: Yes Status: Acute Code(s): R19.7 - DIARRHEA, UNSPECIFIED SNOMED Code(s): 78600484 (2) Anxiety Current Visit: Yes Status: Acute Code(s): F41.9 - ANXIETY DISORDER, UNSPECIFIED SNOMED Code(s): 03048770 (3) Hematochezia Current Visit: Yes Status: Acute Code(s): K92.1 - MELENA SNOMED Code(s): 950207294 Plan: We'll order stool studies to look for things such as C. diff. The diarrhea started after eating a hamburger so we'll get stool culture rule out infectious causes. Monitor hemoglobin. We will follow with you. No immediate plans for colonoscopy, unless the bleeding is ongoing, as it was done 2 years ago. Further recommendations to follow
[2018-06-20] MEDS ORDERED: LORazepam 1 MG TAB PO PRN (14:37)
[2018-06-20] MEDS ORDERED: HYDROcodone/APAP 10-325MG 1 EACH TAB PO PRN (14:37)
[2018-06-20] MEDS: DIVALPROEX 500 MG TABLET.DR PO SCH ×2 (15:48→21:56)
[2018-06-20] MEDS: GABAPENTIN 400 MG CAP PO SCH ×2 (15:48→21:56)
--- NOTE | 2018-06-20 18:30 | P.HPIM ---
History of Present Illness 63-year-old female presented with complaints of diarrhea blood in the stool states there was some blood on tissue when wiping. Patient has had consultation with surgery studies ordered for diarrhea. We'll call blood test negative. Patient very anxious and nervous. Patient has history of fibromyalgia asthma diabetes diet-controlled gastric bypass and irritable bowel syndrome Review of Systems Constitutional: Reports weakness Gastrointestinal: Reports diarrhea, Reports melena Psychiatric: Reports anxiety, Reports anxiety attacks Past Medical History Past Medical History: Asthma, COPD, Diabetes Mellitus, Fibromyalgia, GERD/Reflux , Hypertension, Osteoarthritis (OA), Pneumonia, Pulmonary Embolus (PE), Skin Disorder, Thyroid Disorder Additional Past Medical History / Comment(s): Cervical disc disease/stenosis, scoliosis, wears back brace, recently having numbness/tingling L side of face/ neck, recently saw belt machine operator for L hemidiaphragmatic elevation-pt states she was told this was probably genetic, recently bronchitis and past bronchitis , pt states recent med change (water pill) d/t electrolyte problem/kidney function being affected, pt states she has had pulmonary emboli, past bilateral lower extremity cellulitis, edema lower extremities, IBS, hemorrhoids, benign colon polyps, sinus problems, UTIs, bacteremia/sepsis, cardiac murmur, past L ankle and L wrist fractures. History of Any Multi-Drug Resistant Organisms: None Reported Past Surgical History: Adenoidectomy, Section, Cholecystectomy, Hysterectomy, Tonsillectomy Additional Past Surgical History / Comment(s): EGD, colonoscopies, gastric bypass, surgery for deviated septum Past Anesthesia/Blood Transfusion Reactions: Previous Problems w/ Anesthesia Additional Past Anesthesia/Blood Transfusion Reaction / Comment(s): itching, some kind of problem after gastric bypass-not sure what happened Smoking Status: Current every day smoker - Past Family History Mother Family Medical History: Congestive Heart Failure (CHF), Hypertension Father Additional Family Medical History / Comment(s): Father at the age of 45 yrs d/t having had rheumatic fever as a child and heart valve disease. Medications and Allergies Home Medications Medication Instructions Recorded Confirmed Type Divalproex [Depakote] 500 mg PO TID 12/17/13 06/20/18 History Fluticasone/Salmeterol [Advair 1 puff INHALATION RT-BID 12/17/13 06/20/18 History 250-50 Diskus] Furosemide [Lasix] 20 mg PO DAILY 12/17/13 06/20/18 History Gabapentin [Neurontin] 800 mg PO TID 12/17/13 06/20/18 History Levothyroxine Sodium [Levoxyl] 175 mcg PO DAILY 12/17/13 06/20/18 History Lisinopril [Zestril] 20 mg PO DAILY 12/17/13 06/20/18 History Montelukast [Singulair] 10 mg PO HS 12/17/13 06/20/18 History PARoxetine HCL [Paxil] 50 mg PO DAILY 12/17/13 06/20/18 History busPIRone HCL [Buspar] 30 mg PO BID 12/17/13 06/20/18 History lamoTRIgine [LaMICtal] 100 mg PO BID 12/17/13 06/20/18 History LORazepam [Ativan] 1 mg PO BID PRN 03/13/14 06/20/18 History Albuterol Sulfate [Proair Hfa] 1 - 2 puff INHALATION RT-Q6H PRN 05/07/18 History HYDROcodone/APAP 10-325MG [[place] 1 tab PO TID PRN 05/07/18 06/20/18 History 10-325] Magnesium Oxide [Mag-Ox] 400 mg PO DAILY 05/07/18 06/20/18 History Omeprazole 20 mg PO DAILY 05/07/18 06/20/18 History Triamcinolone 0.025% Cream 1 applic TOPICAL BID 05/07/18 06/20/18 History [Kenalog 0.025% Cream] Allergies Allergy/AdvReac Type Severity Reaction Status Date / Time codeine Allergy Unknown Verified 06/20/18 07:58 Childhood egg Allergy Swelling Verified 06/20/18 07:58 Penicillins Allergy Rash/Hives Verified 06/20/18 07:58 Sulfa (Sulfonamide Allergy Rash/Hives Verified 06/20/18 07:58 Antibiotics) Physical Exam Vitals: Vital Signs Temp Pulse Pulse Resp BP BP Pulse Ox 06/20/18 14:44 97.7 F 73 18 160/77 95 06/20/18 08:20 98.3 F 74 16 145/81 97 06/20/18 07:35 71 18 132/72 97 12/03/18 06:12 97.8 F 80 16 194/83 95 Intake and Output 06/20/18 06/20/18 06/20/18 06:59 14:59 22:59 Other: Voiding Method Toilet # Voids 2 Weight 90.718 kg - Constitutional General appearance: mild distress, obese - EENT Eyes: PERRLA Ears: bilateral: normal - Neck Neck: normal ROM - Respiratory Respiratory: bilateral: CTA - Cardiovascular Rhythm: regular - Gastrointestinal General gastrointestinal: soft - Integumentary Integumentary: normal - Neurologic Neurologic: CNII-XII intact - Musculoskeletal Musculoskeletal: generalized weakness - Psychiatric Psychiatric: A&O x's 3, appropriate affect, intact judgment & insight Results CBC & Chem 7: 06/20/18 06:45 06/20/18 06:45 Labs: Abnormal Lab Results - Last 24 Hours (Table) 06/20/18 06/20/18 06/20/18 Range/Units 06:45 06:45 07:14 WBC 14.0 H (3.8-10.6) k/uL Neutrophils # 10.2 H (1.3-7.7) k/uL Monocytes # 1.1 H (0-1.0) k/uL Sodium 131 L (137-145) mmol/L Chloride 96 L (98-107) mmol/L Glucose 106 H (74-99) mg/dL Total Protein 5.8 L (6.3-8.2) g/dL Albumin 3.4 L (3.5-5.0) g/dL Urine Blood Small H (Negative) Thrombosis Risk Factor Assmnt - Choose All That Apply Any of the Below Risk Factors Present?: Yes Each Factor Represents 1 point: Abnormal pulmonary function (COPD), Obesity ( BMI >25) Other Risk Factors: Yes Each Risk Factor Represents 2 Points: Age 61-74 years Each Risk Factor Represents 3 Points: History of DVT/PE Other congenital or acquired thrombophilia - If yes, enter type in comment: No Thrombosis Risk Factor Assessment Total Risk Factor Score: 7 Thrombosis Risk Factor Assessment Level: High Risk Assessment and Plan Assessment: Assessment Rectal bleeding Diarrhea Anxiety disorder with panic attacks Asthma stable Diabetes type 2 diet controlled Fibromyalgia Nicotine use Hypertension Osteoarthritis Hypothyroidism History of cholecystectomy hysterectomy gastric bypass IBS Plan Stool studies Continue consultation with surgery
[2018-06-20] MEDS ORDERED: SYMBICORT 80-4.5 MCG INHALER INHALATION SCH (20:00)
[2018-06-20] MEDS ORDERED: MONTELUKAST 10 MG TAB PO SCH (21:00)
[2018-06-20] MEDS: busPIRone HCl 10 MG TAB PO SCH (21:56)
[2018-06-20] MEDS: lamoTRIgine 100 MG TAB PO SCH (21:56)
[2018-06-20] MEDS: TRIAMCINOLONE ACET 0.5% CREAM 15 GM TUBE TOPICAL SCH (22:08)
[2018-06-21 06:26] VITALS: BP 153/72; PULSE 72; RESP 14; TEMP 97.6
[2018-06-21] MEDS ORDERED: LEVOTHYROXINE 88 MCG TAB PO SCH (06:30)
[2018-06-21] MEDS: DIVALPROEX 500 MG TABLET.DR PO SCH (07:21)
[2018-06-21] MEDS: PANTOPRAZOLE 40 MG/10 ML VIAL IV SCH (07:21)
[2018-06-21] MEDS: busPIRone HCl 10 MG TAB PO SCH (07:21)
[2018-06-21] MEDS: lamoTRIgine 100 MG TAB PO SCH (07:21)
[2018-06-21] MEDS: GABAPENTIN 400 MG CAP PO SCH (07:21)
[2018-06-21] MEDS: TRIAMCINOLONE ACET 0.5% CREAM 15 GM TUBE TOPICAL SCH (07:22)
[2018-06-21] MEDS ORDERED: MAGNESIUM OXIDE 400 MG TAB PO SCH (09:00)
[2018-06-21] MEDS ORDERED: LISINOPRIL 20 MG TAB PO SCH (09:00)
[2018-06-21] MEDS ORDERED: FUROSEMIDE 20 MG TAB PO SCH (09:00)
[2018-06-21] MEDS ORDERED: PARoxetine 10 MG TAB PO SCH (09:00)
--- NOTE | 2018-06-21 09:51 | P.PN ---
Subjective Progress Note Date: 06/21/18 The patient's feeling better today. No further diarrhea. Tolerating a diet. Objective - Vital Signs Vital signs: Vital Signs Temp 97.6 F 06/21/18 06:25 Pulse 72 06/21/18 06:25 Resp 14 06/21/18 06:25 BP 153/72 06/21/18 06:25 Pulse Ox 92 L 06/21/18 06:25 Intake & Output 06/20/18 06/21/18 06/21/18 18:59 06:59 18:59 Other: Voiding Method Toilet # Voids 2 1 - Constitutional General appearance: Present: cooperative, no acute distress - Gastrointestinal General gastrointestinal: Present: normal bowel sounds, soft. Absent: tenderness (No significant tenderness) - Labs CBC & Chem 7: 06/20/18 06:45 06/20/18 06:45 Assessment and Plan (1) Diarrhea Current Visit: Yes Status: Acute Code(s): R19.7 - DIARRHEA, UNSPECIFIED SNOMED Code(s): 14881182 (2) Anxiety Current Visit: Yes Status: Acute Code(s): F41.9 - ANXIETY DISORDER, UNSPECIFIED SNOMED Code(s): 05888470 (3) Hematochezia Current Visit: Yes Status: Acute Code(s): K92.1 - MELENA SNOMED Code(s): 244270318 Plan: The patient's had no further diarrhea. Hemoccult in the ER was negative. She did have a colonoscopy in 2016. Possible that she had a limited gastroenteritis , possibly due to eating a bad hamburger. She is currently nonsurgical and no plans for a colonoscopy. We'll follow on a PRN basis
--- NOTE | 2018-06-21 12:58 | P.DS ---
Providers Date of admission: 06/20/18 07:24 Expected date of discharge: 06/21/18 Attending physician: Andrzej Wheeler Consults: 06/20/18 07:23 Consult Physician Urgent Consulting Provider: Zelda Park Consult Reason/Comments: lower GI bleed - established patient for previous colonoscopy Do you want consulting provider notified?: Yes Primary care physician: Andrzej Wheeler Hospital Course: 63-year-old female presented the emergency room with complaints of rectal bleeding. Occult blood was negative a hemoglobin stable at 13.8 diarrhea subsided. Evaluated by surgeon surgeon said no surgical intervention needed stable for discharge Assessment Rectal bleeding all called negative Diarrhea Anxiety disorder Stable asthma Diabetes type 2 diet controlled Fibromyalgia Nicotine dependence Hypertension Osteoarthritis Hypothyroidism History of cholecystectomy hysterectomy gastric bypass IBS Plan Follow-up with family physician Dr. Andrzej Wheeelr and surgeon Dr. Park Plan - Discharge Summary Discharge Rx Participant: No New Discharge Prescriptions: Continue Furosemide [Lasix] 20 mg PO DAILY Divalproex [Depakote] 500 mg PO TID Lisinopril [Zestril] 20 mg PO DAILY Fluticasone/Salmeterol [Advair 250-50 Diskus] 1 puff INHALATION RT-BID Levothyroxine Sodium [Levoxyl] 175 mcg PO DAILY lamoTRIgine [LaMICtal] 100 mg PO BID busPIRone HCL [Buspar] 30 mg PO BID PARoxetine HCL [Paxil] 50 mg PO DAILY Montelukast [Singulair] 10 mg PO HS Gabapentin [Neurontin] 800 mg PO TID LORazepam [Ativan] 1 mg PO BID PRN PRN Reason: Anxiety Omeprazole 20 mg PO DAILY Albuterol Sulfate [Proair Hfa] 1 - 2 puff INHALATION RT-Q6H PRN PRN Reason: Shortness Of Breath Magnesium Oxide [Mag-Ox] 400 mg PO DAILY Triamcinolone 0.025% Cream [Kenalog 0.025% Cream] 1 applic TOPICAL BID HYDROcodone/APAP 10-325MG [[place] 10-325] 1 tab PO TID PRN PRN Reason: Pain Discharge Medication List Divalproex [Depakote] 500 mg PO TID 12/17/13 [History] Fluticasone/Salmeterol [Advair 250-50 Diskus] 1 puff INHALATION RT-BID 12/17/13 [History] Furosemide [Lasix] 20 mg PO DAILY 12/17/13 [History] Gabapentin [Neurontin] 800 mg PO TID 12/17/13 [History] Levothyroxine Sodium [Levoxyl] 175 mcg PO DAILY 12/17/13 [History] Lisinopril [Zestril] 20 mg PO DAILY 12/17/13 [History] Montelukast [Singulair] 10 mg PO HS 12/17/13 [History] PARoxetine HCL [Paxil] 50 mg PO DAILY 12/17/13 [History] busPIRone HCL [Buspar] 30 mg PO BID 12/17/13 [History] lamoTRIgine [LaMICtal] 100 mg PO BID 12/17/13 [History] LORazepam [Ativan] 1 mg PO BID PRN 03/13/14 [History] Albuterol Sulfate [Proair Hfa] 1 - 2 puff INHALATION RT-Q6H PRN 05/07/18 [ History] HYDROcodone/APAP 10-325MG [[place] 10-325] 1 tab PO TID PRN 05/07/18 [History] Magnesium Oxide [Mag-Ox] 400 mg PO DAILY 05/07/18 [History] Omeprazole 20 mg PO DAILY 05/07/18 [History] Triamcinolone 0.025% Cream [Kenalog 0.025% Cream] 1 applic TOPICAL BID 05/07/18 [History] Follow up Appointment(s)/Referral(s): Andrzej Wheeler MD [Primary Care Provider] - 1-2 days Patient Instructions/Handouts: Gastrointestinal Bleeding (ED)
== END 2018-06-21 14:53 | disposition home or self-care (01) ==
LOC: EC 06:07 → 4MS4W 07:24
PROVIDERS: ADMIT Family Medicine; ATTEND Family Medicine
DX: K92.1 Melena (principal); K64.8 Other hemorrhoids; K58.0 Irritable bowel syndrome with diarrhea; E03.9 Hypothyroidism, unspecified; E11.9 Type 2 diabetes mellitus without complications; F31.9 Bipolar disorder, unspecified; F41.0 Panic disorder [episodic paroxysmal anxiety]; F17.200 Nicotine dependence, unspecified, uncomplicated; I10 Essential (primary) hypertension; J44.9 Chronic obstructive pulmonary disease, unspecified; K21.9 Gastro-esophageal reflux disease without esophagitis; F41.9 Anxiety disorder, unspecified; M79.7 Fibromyalgia; M19.90 Unspecified osteoarthritis, unspecified site; Z79.899 Other long term (current) drug therapy; Z98.84 Bariatric surgery status; Z90.710 Acquired absence of both cervix and uterus; Z90.49 Acquired absence of other specified parts of digestive tract; Z86.711 Personal history of pulmonary embolism; Z86.010 Personal history of colon polyps; Z87.01 Personal history of pneumonia (recurrent); Z82.49 Family history of ischemic heart disease and other diseases of the circulatory system; Z88.5 Allergy status to narcotic agent; Z88.0 Allergy status to penicillin; Z88.2 Allergy status to sulfonamides; Z91.012 Allergy to eggs
CPT/HCPCS: 96376; 96374; 99285; 36415; 86900; 86901; 80053; 85025; 86850; 82272; 81001; G0378 ×2; C9113 ×2

== ENCOUNTER → 2018-07-07 | Outpatient (CLI) | payer MEDICARE ==
--- NOTE | 2018-07-07 09:23 | CT ---
EXAMINATION TYPE: CT chest wo con DATE OF EXAM: 07/07/2018 COMPARISON: Chest x-ray May 07, 2018 and older study from 2016 HISTORY: Follow up abn exam, abnormal x-ray CT DLP: 1062.0 mGycm. Automated Exposure Control for Dose Reduction was Utilized. TECHNIQUE: CT scan of the thorax is performed without IV contrast. Exam performed under high-resolut ion protocol with 1 mm sequences obtained and 10 mm intervals under supine and prone technique. FINDINGS: Evaluation is noted suboptimal as there is some respiratory motion artifact degradation pre sent. LUNGS: There is mild linear scarring in bilateral bases near diaphragm. There is mild linear scarring anteriorly involving the right middle lobes and lingula. No significant peripheral reticulation or f ibrosis is seen. No worrisome focal consolidation is present. No obvious mass is seen. No pleural eff usion or pneumothorax is noted. No significant bronchiectasis is present. Slightly elevated left sheeba diaphragm is redemonstrated. MEDIASTINUM: Lack of IV contrast is noted to limit evaluation for mediastinal and especially hilar ad enopathy. There are no definitive greater than 1 cm hilar or mediastinal lymph nodes. No significan t pericardial effusion is seen. Heart size remains mildly enlarged. Coronary artery calcification is present which is noted marker for coronary artery disease. OTHER: Surgical changes epigastric region are believed product of gastric bypass. Cholecystectomy cli ps are partially imaged. There is scoliosis in the lumbar spine on localizer.. IMPRESSION: Mild scattered linear fibrosis in the lower lungs. No significant peripheral reticulation . No acute pulmonary process.
== END | disposition home or self-care (01) ==
LOC: RADCTMAIN 08:32
PROVIDERS: ATTEND Internal Medicine Critical Care Medicine
DX: J84.10 Pulmonary fibrosis, unspecified (principal)
CPT/HCPCS: 71250

== ENCOUNTER 2019-06-01 14:22 | Inpatient (IN) | payer MEDICARE ==
--- NOTE | 2019-06-01 14:57 | ED ---
General Adult HPI - General Chief complaint: Shortness of Breath Stated complaint: Swollen legs, SOB Time Seen by Provider: 06/01/19 14:41 Source: patient, RN notes reviewed Mode of arrival: ambulatory Limitations: no limitations - History of Present Illness Initial comments: Is a 64-year-old female with a history of sepsis in lower extremity cellulitis in the past who was sent by her doctor today from the office with complaints of increased redness and swelling to the lower extremities she was also short of breath. She does say she is a 2 pack-a-day smoker. He states she's had a cough no phlegm no overt fevers chills or sweats he apparently had a low pulse ox in the office upon arrival here was in the mid 90s. She states she's been falling more recently he states for the past week or so she's had some pain with weakness in the lower extremities. No focal deficits. She does states she believes she had a DVT in the past. No other modifying factors - Related Data Home Medications Medication Instructions Recorded Confirmed Divalproex [Depakote] 500 mg PO TID 12/17/13 06/20/18 Fluticasone/Salmeterol [Advair 1 puff INHALATION RT-BID 12/17/13 06/20/18 250-50 Diskus] Furosemide [Lasix] 20 mg PO DAILY 12/17/13 06/20/18 Gabapentin [Neurontin] 800 mg PO TID 12/17/13 06/20/18 Levothyroxine Sodium [Levoxyl] 175 mcg PO DAILY 12/17/13 06/20/18 Lisinopril [Zestril] 20 mg PO DAILY 12/17/13 06/20/18 Montelukast [Singulair] 10 mg PO HS 12/17/13 06/20/18 PARoxetine HCL [Paxil] 50 mg PO DAILY 12/17/13 06/20/18 busPIRone HCL [Buspar] 30 mg PO BID 12/17/13 06/20/18 lamoTRIgine [LaMICtal] 100 mg PO BID 12/17/13 06/20/18 LORazepam [Ativan] 1 mg PO BID PRN 03/13/14 06/20/18 Albuterol Sulfate [Proair Hfa] 1 - 2 puff INHALATION RT-Q6H PRN 05/07/18 06/20/18 HYDROcodone/APAP 10-325MG [[place] 1 tab PO TID PRN 05/07/18 06/20/18 10-325] Magnesium Oxide [Mag-Ox] 400 mg PO DAILY 05/07/18 06/20/18 Omeprazole 20 mg PO DAILY 05/07/18 06/20/18 Triamcinolone 0.025% Cream 1 applic TOPICAL BID 05/07/18 06/20/18 [Kenalog 0.025% Cream] Allergies Allergy/AdvReac Type Severity Reaction Status Date / Time codeine Allergy Unknown Verified 06/01/19 14:31 Childhood egg Allergy Swelling Verified 06/01/19 14:31 Penicillins Allergy Rash/Hives Verified 06/01/19 14:31 Sulfa (Sulfonamide Allergy Rash/Hives Verified 06/01/19 14:31 Antibiotics) Review of Systems ROS Statement: Those systems with pertinent positive or pertinent negative responses have been documented in the HPI. ROS Other: All systems not noted in ROS Statement are negative. Past Medical History Past Medical History: Asthma, COPD, Diabetes Mellitus, Fibromyalgia, GERD/Reflux, Hypertension, Osteoarthritis (OA), Pneumonia, Pulmonary Embolus (PE), Skin Disorder, Thyroid Disorder Additional Past Medical History / Comment(s): Cervical disc disease/stenosis, scoliosis, wears back brace, recently having numbness/tingling L side of face/neck, recently saw garment presser for L hemidiaphragmatic elevation-pt states she was told this was probably genetic, recently bronchitis and past bronchitis, pt states recent med change (water pill) d/t electrolyte problem/kidney function being affected, pt states she has had pulmonary emboli, past bilateral lower extremity cellulitis, edema lower extremities, IBS, hemorrhoids, benign colon polyps, sinus problems, UTIs, bacteremia/sepsis, cardiac murmur, past L ankle and L wrist fractures. History of Any Multi-Drug Resistant Organisms: None Reported Past Surgical History: Adenoidectomy, Section, Cholecystectomy, Hysterectomy, Tonsillectomy Additional Past Surgical History / Comment(s): EGD, colonoscopies, gastric bypass, surgery for deviated septum Past Anesthesia/Blood Transfusion Reactions: Previous Problems w/ Anesthesia Additional Past Anesthesia/Blood Transfusion Reaction / Comment(s): itching, some kind of problem after gastric bypass-not sure what happened Past Psychological History: Anxiety, Bipolar, Depression Smoking Status: Current every day smoker Past Alcohol Use History: None Reported Past Drug Use History: None Reported - Past Family History Mother Family Medical History: Congestive Heart Failure (CHF), Hypertension Father Additional Family Medical History / Comment(s): Father at the age of 45 yrs d/t having had rheumatic fever as a child and heart valve disease. General Exam - General Exam Comments Initial Comments: This is a well-developed well-nourished awake alert oriented 3 female Limitations: no limitations General appearance: alert, in no apparent distress Head exam: Present: atraumatic, normocephalic, normal inspection Eye exam: Present: normal appearance, PERRL, EOMI. Absent: scleral icterus, conjunctival injection, periorbital swelling ENT exam: Present: mucous membranes dry Neck exam: Present: normal inspection. Absent: tenderness, meningismus, lymphadenopathy Respiratory exam: Present: decreased breath sounds. Absent: respiratory distress, wheezes, rales, rhonchi, stridor Cardiovascular Exam: Present: regular rate, normal rhythm, normal heart sounds. Absent: systolic murmur, diastolic murmur, rubs, gallop, clicks GI/Abdominal exam: Present: soft, normal bowel sounds. Absent: distended, tenderness, guarding, rebound, rigid Extremities exam: Present: full ROM, tenderness, normal capillary refill, calf tenderness, other (History of erythema localized temperature to both lower extremities. No palpable cords). Absent: pedal edema, joint swelling Back exam: Present: normal inspection Neurological exam: Present: alert, oriented X3, CN II-XII intact Psychiatric exam: Present: normal affect, normal mood Skin exam: Present: warm, dry, intact, other (Family the lower extremities as noted above). Absent: rash Course Vital Signs 06/01/19 06/01/19 14:27 15:31 Temperature 97.8 F Pulse Rate 74 Respiratory 24 18 Rate Blood Pressure 159/84 O2 Sat by Pulse 95 Oximetry Medical Decision Making - Medical Decision Making I did discuss findings with Dr. Wheeler in the patient family patient be admitted treatment of cellulitis to lower extremities as well as COPD exacerbation. - Lab Data Result diagrams: 06/01/19 15:00 06/01/19 15:00 Lab Results 11/14/19 11/14/19 11/14/19 Range/Units 15:00 15:00 15:00 WBC 7.0 (3.8-10.6) k/uL RBC 4.45 (3.80-5.40) m/uL Hgb 14.1 (11.4-16.0) gm/dL Hct 41.7 (34.0-46.0) % MCV 93.7 (80.0-100.0) fL MCH 31.5 (25.0-35.0) pg MCHC 33.7 (31.0-37.0) g/dL RDW 12.4 (11.5-15.5) % Plt Count 171 (150-450) k/uL Neutrophils % 63 % Lymphocytes % 25 % Monocytes % 8 % Eosinophils % 1 % Basophils % 1 % Neutrophils # 4.4 (1.3-7.7) k/uL Lymphocytes # 1.8 (1.0-4.8) k/uL Monocytes # 0.6 (0-1.0) k/uL Eosinophils # 0.1 (0-0.7) k/uL Basophils # 0.0 (0-0.2) k/uL D-Dimer (<0.60) mg/L FEU Sodium 128 L (137-145) mmol/L Potassium 4.7 (3.5-5.1) mmol/L Chloride 91 L (98-107) mmol/L Carbon Dioxide 31 H (22-30) mmol/L Anion Gap 6 mmol/L BUN 11 (7-17) mg/dL Creatinine 0.68 (0.52-1.04) mg/dL Est GFR (CKD-EPI)AfAm >90 (>60 ml/min/1.73 sqM) Est GFR (CKD-EPI)NonAf >90 (>60 ml/min/1.73 sqM) Glucose 78 (74-99) mg/dL Plasma Lactic Acid Joel (0.7-2.0) mmol/L Calcium 9.4 (8.4-10.2) mg/dL Magnesium 1.7 (1.6-2.3) mg/dL Total Bilirubin 0.4 (0.2-1.3) mg/dL AST 39 H (14-36) U/L ALT 21 (9-52) U/L Alkaline Phosphatase 78 (38-126) U/L Creatine Kinase 159 H (30-135) U/L Troponin I (0.000-0.034) ng/mL NT-Pro-B Natriuret Pep 338 pg/mL Total Protein 6.2 L (6.3-8.2) g/dL Albumin 3.8 (3.5-5.0) g/dL 06/01/19 06/01/19 06/01/19 Range/Units 15:00 15:00 15:00 WBC (3.8-10.6) k/uL RBC (3.80-5.40) m/uL Hgb (11.4-16.0) gm/dL Hct (34.0-46.0) % MCV (80.0-100.0) fL MCH (25.0-35.0) pg MCHC (31.0-37.0) g/dL RDW (11.5-15.5) % Plt Count (150-450) k/uL Neutrophils % % Lymphocytes % % Monocytes % % Eosinophils % % Basophils % % Neutrophils # (1.3-7.7) k/uL Lymphocytes # (1.0-4.8) k/uL Monocytes # (0-1.0) k/uL Eosinophils # (0-0.7) k/uL Basophils # (0-0.2) k/uL D-Dimer 0.51 (<0.60) mg/L FEU Sodium (137-145) mmol/L Potassium (3.5-5.1) mmol/L Chloride (98-107) mmol/L Carbon Dioxide (22-30) mmol/L Anion Gap mmol/L BUN (7-17) mg/dL Creatinine (0.52-1.04) mg/dL Est GFR (CKD-EPI)AfAm (>60 ml/min/1.73 sqM) Est GFR (CKD-EPI)NonAf (>60 ml/min/1.73 sqM) Glucose (74-99) mg/dL Plasma Lactic Acid Joel 1.3 (0.7-2.0) mmol/L Calcium (8.4-10.2) mg/dL Magnesium (1.6-2.3) mg/dL Total Bilirubin (0.2-1.3) mg/dL AST (14-36) U/L ALT (9-52) U/L Alkaline Phosphatase (38-126) U/L Creatine Kinase (30-135) U/L Troponin I <0.012 (0.000-0.034) ng/mL NT-Pro-B Natriuret Pep pg/mL Total Protein (6.3-8.2) g/dL Albumin (3.5-5.0) g/dL - EKG Data -: EKG Interpreted by Id EKG shows normal: sinus rhythm (Sinus rhythm a 71 appear of 01 64 QRS 108 QT since QTC 378/410 moderate voltage criteria for LVH.) - Radiology Data Radiology results: report reviewed (Imaging was reviewed no evidence of DVT the x-ray shows evidence of some increased markings no definite infiltrates.), image reviewed Disposition Clinical Impression: Acute exacerbation of chronic obstructive pulmonary disease, Bilateral lower leg cellulitis Disposition: ADMITTED IP TO THIS HOSP Condition: Fair Referrals: Andrzej Wheeler MD [Primary Care Provider] - 1-2 days
[2019-06-01 15:21] LABS: ALT 21 U/L (9-52); AST 39 U/L (14-36); African American GFR (CKD) >90 (>60 ml/min/1.73 sqM); Albumin 3.8 g/dL (3.5-5.0); Alkaline Phosphatase 78 U/L (38-126); Anion Gap 6 mmol/L; Blood Urea Nitrogen 11 mg/dL (7-17); Calcium 9.4 mg/dL (8.4-10.2); Carbon Dioxide 31 mmol/L (22-30); Chloride 91 mmol/L (98-107); Creatine Kinase 159 U/L (30-135); Glucose 78 mg/dL (74-99); Magnesium 1.7 mg/dL (1.6-2.3); Non-African American GFR(CKD) >90 (>60 ml/min/1.73 sqM); Sodium 128 mmol/L (137-145); Total Bilirubin 0.4 mg/dL (0.2-1.3); Total Protein 6.2 g/dL (6.3-8.2)
[2019-06-01 15:30] LABS: Potassium 4.7 mmol/L (3.5-5.1)
[2019-06-01 15:35] LABS: Basophils % (A) 1 %; Eosinophils # (A) 0.1 k/uL (0-0.7); Eosinophils % (A) 1 %; HCT 41.7 % (34.0-46.0); HGB 14.1 gm/dL (11.4-16.0); Lymphocytes # (A) 1.8 k/uL (1.0-4.8); Lymphocytes % (A) 25 %; MCH 31.5 pg (25.0-35.0); MCHC 33.7 g/dL (31.0-37.0); MCV 93.7 fL (80.0-100.0); Monocytes # (A) 0.6 k/uL (0-1.0); Monocytes % (A) 8 %; Neutrophils # (A) 4.4 k/uL (1.3-7.7); Neutrophils % (A) 63 %; Platelet Count 171 k/uL (150-450); RBC 4.45 m/uL (3.80-5.40); RDW 12.4 % (11.5-15.5)
--- NOTE | 2019-06-01 16:06 | US ---
EXAMINATION TYPE: US venous doppler duplex LE BI DATE OF EXAM: 06/01/2019 3:53 PM COMPARISON: NONE CLINICAL HISTORY: 64-year-old female Leg pain and swelling. Bilateral lower leg redness. No hx DVT. Not on blood thinners. SIDE PERFORMED: Bilateral TECHNIQUE: The lower extremity deep venous system is examined utilizing real time linear array sonog holly with graded compression, doppler sonography and color-flow sonography. FINDINGS: VESSELS IMAGED: External Iliac Vein (EIV) Common Femoral Vein Deep Femoral Vein Greater Saphenous Vein * Femoral Vein Popliteal Vein Small Saphenous Vein * Proximal Calf Veins (* superficial vessels) Right Leg: Appears negative for DVT Left Leg: Appears negative for DVT IMPRESSION: No evidence for DVT within the bilateral lower extremities imaged from the groin to the upper calves.
--- NOTE | 2019-06-01 16:32 | XR ---
EXAMINATION TYPE: XR chest 2V DATE OF EXAM: 06/01/2019 COMPARISON: 05/07/2018 HISTORY: 64-year-old female shortness of breath, dyspnea TECHNIQUE: AP and lateral views FINDINGS: Heart is mildly enlarged. Mild interstitial prominence. Asymmetric elevation left hemidiaphragm is un changed. No elvira consolidation or pleural effusion. IMPRESSION: 1. Stable mild cardiomegaly. 2. Interstitial prominence appears largely chronic. Correlate for possible mild pulmonary vascular co ngestion. There is no elvira pulmonary edema. 3. Similar asymmetric elevation left hemidiaphragm. Correlate for the possibility of hemidiaphragmati c paralysis.
[2019-06-01] MEDS ORDERED: cefTRIAXone IN SWFI 1,000 MG/10 ML SYRINGE IVP STA (17:18)
[2019-06-01] MEDS ORDERED: IPRATROPIUM-ALBUTEROL 3 ML NEB INHALATION STA (17:18)
[2019-06-01] MEDS ORDERED: VANCOMYCIN IV PER PHARMACY 1 EACH MISC MISCELLANE PRN (17:22)
[2019-06-01] MEDS ORDERED: VANCOMYCIN 1,750 MG in SODIUM CHLORIDE 0.9% 500 ML 500 ML IVPB STA (17:40)
--- NOTE | 2019-06-01 18:12 | ED ---
Medical Decision Making - Medical Decision Making Dr. Wheeler is being covered by Dr. Sood the case was discussed with him. - Lab Data Result diagrams: 06/01/19 15:00 06/01/19 15:00 Lab Results 06/01/19 06/01/19 06/01/19 Range/Units 15:00 15:00 15:00 WBC 7.0 (3.8-10.6) k/uL RBC 4.45 (3.80-5.40) m/uL Hgb 14.1 (11.4-16.0) gm/dL Hct 41.7 (34.0-46.0) % MCV 93.7 (80.0-100.0) fL MCH 31.5 (25.0-35.0) pg MCHC 33.7 (31.0-37.0) g/dL RDW 12.4 (11.5-15.5) % Plt Count 171 (150-450) k/uL Neutrophils % 63 % Lymphocytes % 25 % Monocytes % 8 % Eosinophils % 1 % Basophils % 1 % Neutrophils # 4.4 (1.3-7.7) k/uL Lymphocytes # 1.8 (1.0-4.8) k/uL Monocytes # 0.6 (0-1.0) k/uL Eosinophils # 0.1 (0-0.7) k/uL Basophils # 0.0 (0-0.2) k/uL D-Dimer (<0.60) mg/L FEU Sodium 128 L (137-145) mmol/L Potassium 4.7 (3.5-5.1) mmol/L Chloride 91 L (98-107) mmol/L Carbon Dioxide 31 H (22-30) mmol/L Anion Gap 6 mmol/L BUN 11 (7-17) mg/dL Creatinine 0.68 (0.52-1.04) mg/dL Est GFR (CKD-EPI)AfAm >90 (>60 ml/min/1.73 sqM) Est GFR (CKD-EPI)NonAf >90 (>60 ml/min/1.73 sqM) Glucose 78 (74-99) mg/dL Plasma Lactic Acid Joel (0.7-2.0) mmol/L Calcium 9.4 (8.4-10.2) mg/dL Magnesium 1.7 (1.6-2.3) mg/dL Total Bilirubin 0.4 (0.2-1.3) mg/dL AST 39 H (14-36) U/L ALT 21 (9-52) U/L Alkaline Phosphatase 78 (38-126) U/L Creatine Kinase 159 H (30-135) U/L Troponin I (0.000-0.034) ng/mL NT-Pro-B Natriuret Pep 338 pg/mL Total Protein 6.2 L (6.3-8.2) g/dL Albumin 3.8 (3.5-5.0) g/dL 06/01/19 06/01/19 06/01/19 Range/Units 15:00 15:00 15:00 WBC (3.8-10.6) k/uL RBC (3.80-5.40) m/uL Hgb (11.4-16.0) gm/dL Hct (34.0-46.0) % MCV (80.0-100.0) fL MCH (25.0-35.0) pg MCHC (31.0-37.0) g/dL RDW (11.5-15.5) % Plt Count (150-450) k/uL Neutrophils % % Lymphocytes % % Monocytes % % Eosinophils % % Basophils % % Neutrophils # (1.3-7.7) k/uL Lymphocytes # (1.0-4.8) k/uL Monocytes # (0-1.0) k/uL Eosinophils # (0-0.7) k/uL Basophils # (0-0.2) k/uL D-Dimer 0.51 (<0.60) mg/L FEU Sodium (137-145) mmol/L Potassium (3.5-5.1) mmol/L Chloride (98-107) mmol/L Carbon Dioxide (22-30) mmol/L Anion Gap mmol/L BUN (7-17) mg/dL Creatinine (0.52-1.04) mg/dL Est GFR (CKD-EPI)AfAm (>60 ml/min/1.73 sqM) Est GFR (CKD-EPI)NonAf (>60 ml/min/1.73 sqM) Glucose (74-99) mg/dL Plasma Lactic Acid Joel 1.3 (0.7-2.0) mmol/L Calcium (8.4-10.2) mg/dL Magnesium (1.6-2.3) mg/dL Total Bilirubin (0.2-1.3) mg/dL AST (14-36) U/L ALT (9-52) U/L Alkaline Phosphatase (38-126) U/L Creatine Kinase (30-135) U/L Troponin I <0.012 (0.000-0.034) ng/mL NT-Pro-B Natriuret Pep pg/mL Total Protein (6.3-8.2) g/dL Albumin (3.5-5.0) g/dL Disposition Clinical Impression: Acute exacerbation of chronic obstructive pulmonary disease, Bilateral lower leg cellulitis Disposition: ADMITTED IP TO THIS HOSP Condition: Fair Procedures - Smoking Cessation Time Spent Discussing Smoking Cessation w/Patient (Minutes): 3 Patient Acknowledges Need for Cessation: Yes
[2019-06-01 19:51] VITALS: BMI 44.4
[2019-06-01 20:42] LABS: Glucose,Whole Blood 81 mg/dL (75-99)
[2019-06-01] MEDS: IPRATROPIUM-ALBUTEROL 3 ML NEB INHALATION SCH (21:17)
[2019-06-01] MEDS: GABAPENTIN 400 MG CAP PO SCH (21:26)
[2019-06-01] MEDS: methylPREDNISolone SOD SUCCI 125 MG/2 ML VIAL IV SCH (21:26)
[2019-06-01] MEDS: TRIAMCINOLONE 0.1% CREAM 80 GM TUBE TOPICAL SCH (21:26)
[2019-06-01] MEDS: HEPARIN SODIUM,PORCINE 5,000 UNIT/ML 1 ML VIAL SQ SCH (21:27)
[2019-06-01] MEDS: busPIRone HCl 10 MG TAB PO SCH (21:27)
[2019-06-01] MEDS: MONTELUKAST 10 MG TAB PO SCH (21:27)
[2019-06-01] MEDS: lamoTRIgine 100 MG TAB PO SCH (21:27)
[2019-06-01] MEDS: DIVALPROEX 500 MG TABLET.DR PO SCH (21:27)
[2019-06-01] MEDS: HYDROcodone/APAP 10-325MG 1 EACH TAB PO PRN (22:43)
[2019-06-02] MEDS: IPRATROPIUM-ALBUTEROL 3 ML NEB INHALATION SCH ×7 (00:30→23:18)
[2019-06-02] MEDS: methylPREDNISolone SOD SUCCI 125 MG/2 ML VIAL IV SCH ×5 (02:49→23:38)
[2019-06-02] MEDS: SODIUM CHLORIDE 0.9% 1,000 ML IV SCH ×2 (02:49→16:17)
[2019-06-02] MEDS: LEVOTHYROXINE 88 MCG TAB PO SCH (06:07)
[2019-06-02 07:17] LABS: Glucose,Whole Blood 158 mg/dL (75-99)
[2019-06-02] MEDS: busPIRone HCl 10 MG TAB PO SCH ×2 (08:54→20:22)
[2019-06-02] MEDS: MAGNESIUM OXIDE 400 MG TAB PO SCH (08:54)
[2019-06-02] MEDS: FUROSEMIDE 20 MG TAB PO SCH (08:54)
[2019-06-02] MEDS: DIVALPROEX 500 MG TABLET.DR PO SCH ×3 (08:54→20:22)
[2019-06-02] MEDS: lamoTRIgine 100 MG TAB PO SCH ×2 (08:54→20:22)
[2019-06-02] MEDS: GABAPENTIN 400 MG CAP PO SCH ×3 (08:54→20:22)
[2019-06-02] MEDS: PARoxetine 10 MG TAB PO SCH (08:54)
[2019-06-02] MEDS: LISINOPRIL 20 MG TAB PO SCH (10:41)
[2019-06-02] MEDS: HEPARIN SODIUM,PORCINE 5,000 UNIT/ML 1 ML VIAL SQ SCH ×2 (10:43→20:23)
[2019-06-02] MEDS: PANTOPRAZOLE 40 MG TABLET PO SCH (10:43)
[2019-06-02] MEDS: TRIAMCINOLONE 0.1% CREAM 80 GM TUBE TOPICAL SCH ×2 (10:46→20:29)
[2019-06-02 11:25] LABS: African American GFR (CKD) >90 (>60 ml/min/1.73 sqM); Anion Gap 8 mmol/L; Blood Urea Nitrogen 10 mg/dL (7-17); Calcium 9.6 mg/dL (8.4-10.2); Carbon Dioxide 30 mmol/L (22-30); Chloride 91 mmol/L (98-107); Glucose 234 mg/dL (74-99); Non-African American GFR(CKD) >90 (>60 ml/min/1.73 sqM); Potassium 4.9 mmol/L (3.5-5.1); Sodium 129 mmol/L (137-145)
[2019-06-02] MEDS: VANCOMYCIN 1,750 MG in SODIUM CHLORIDE 0.9% 500 ML 500 ML IVPB SCH (11:26)
[2019-06-02 12:17] LABS: Glucose,Whole Blood 202 mg/dL (75-99)
[2019-06-02] MEDS: HYDROcodone/APAP 10-325MG 1 EACH TAB PO PRN (16:19)
[2019-06-02 17:15] LABS: Glucose,Whole Blood 178 mg/dL (75-99)
[2019-06-02] MEDS: INSULIN ASPART (NovoLOG) 100 UNIT/ML VIAL SQ SCH ×2 (17:31→20:34)
--- NOTE | 2019-06-02 17:53 | P.HPIM ---
History of Present Illness H&P Date: 06/02/19 Chief Complaint: Cellulitis bilateral lower extremities 64-year-old female with a history of sepsis in lower extremity cellulitis in the past who was sent by her doctor today from the office with complaints of increased redness and swelling to the lower extremities she was also short of breath. She does say she is a 2 pack-a-day smoker. He states she's had a cough no phlegm no overt fevers chills or sweats he apparently had a low pulse ox in the office upon arrival here was in the mid 90s. She states she's been falling more recently he states for the past week or so she's had some pain with weakness in the lower extremities. No focal deficits. She does states she believes she had a DVT in the past. Workup in ED was significant for markedly low sodium level of 128 and patient was found to be in acute exacerbation of COPD; she is admitted to the hospital for further evaluation Review of Systems REVIEW OF SYSTEMS: CONSTITUTIONAL: No fever, no malaise, no fatigue. HEENT: No recent visual problems or hearing problems. Denied any sore throat. CARDIOVASCULAR: No chest pain, orthopnea, PND, no palpitations, no syncope. PULMONARY: No shortness of breath, no cough, no hemoptysis. GASTROINTESTINAL: No diarrhea, no nausea, no vomiting, no abdominal pain. NEUROLOGICAL: No headaches, no weakness, no numbness. HEMATOLOGICAL: Denies any bleeding or petechiae. GENITOURINARY: Denies any burning micturition, frequency, or urgency. MUSCULOSKELETAL/RHEUMATOLOGICAL: Denies any joint pain, swelling, or any muscle pain. ENDOCRINE: Denies any polyuria or polydipsia. The rest of the 14-point review of systems is negative. Past Medical History Past Medical History: Asthma, COPD, Diabetes Mellitus, Fibromyalgia, Hypertension, Osteoarthritis (OA), Pneumonia, Pulmonary Embolus (PE), Skin Disorder, Thyroid Disorder Additional Past Medical History / Comment(s): Cervical disc disease/stenosis, scoliosis, wears back brace, recently saw president and chief executive officer for L hemidiaphragmatic elevation-pt states she was told this was probably genetic, recently bronchitis and past bronchitis, pt states recent med change (water pill) d/t electrolyte problem/kidney function being affected, pt states she has had pulmonary emboli, past bilateral lower extremity cellulitis, edema lower extremities, IBS, hemorrhoids, benign colon polyps, sinus problems, UTIs, bacteremia/sepsis, cardiac murmur, past L ankle and L wrist fractures. History of Any Multi-Drug Resistant Organisms: None Reported Past Surgical History: Adenoidectomy, Section, Cholecystectomy, Hysterectomy, Tonsillectomy Additional Past Surgical History / Comment(s): EGD, colonoscopies, gastric bypass, surgery for deviated septum Past Anesthesia/Blood Transfusion Reactions: Previous Problems w/ Anesthesia Additional Past Anesthesia/Blood Transfusion Reaction / Comment(s): itching, some kind of problem after gastric bypass-not sure what happened Past Psychological History: Anxiety, Bipolar, Depression Additional Psychological History / Comment(s): Pt resides with her spouse. They have a cat. She states her depression is not an issue. She wears a back brace when up. Smoking Status: Current every day smoker Past Alcohol Use History: None Reported Additional Past Alcohol Use History / Comment(s): Pt states she has no idea at what age she began smoking. She states she has quit many times over the years but is currently smoking. Past Drug Use History: None Reported - Past Family History Mother Family Medical History: Congestive Heart Failure (CHF), Hypertension Father Additional Family Medical History / Comment(s): Father at the age of 45 yrs d/t having had rheumatic fever as a child and heart valve disease. Medications and Allergies Home Medications Medication Instructions Recorded Confirmed Type Divalproex [Depakote] 500 mg PO BID 12/17/13 06/01/19 History Furosemide [Lasix] 20 mg PO Q48H 12/17/13 06/01/19 History Gabapentin [Neurontin] 800 mg PO BID 12/17/13 06/01/19 History Levothyroxine Sodium [Levoxyl] 175 mcg PO DAILY 12/17/13 06/01/19 History Lisinopril [Zestril] 20 mg PO DAILY 12/17/13 06/01/19 History Montelukast [Singulair] 10 mg PO HS 12/17/13 06/01/19 History busPIRone HCL [Buspar] 30 mg PO BID 12/17/13 06/01/19 History lamoTRIgine [LaMICtal] 100 mg PO BID 12/17/13 06/01/19 History Albuterol Sulfate [Proair Hfa] 1 - 2 puff INHALATION RT-Q6H PRN 05/07/18 06/01/19 History Magnesium Oxide [Mag-Ox] 400 mg PO DAILY 05/07/18 06/01/19 History Triamcinolone 0.025% Cream 1 applic TOPICAL BID PRN 05/07/18 06/01/19 History [Kenalog 0.025% Cream] Cyclobenzaprine [Flexeril] 10 mg PO BID 06/01/19 06/01/19 History Fluticasone Propion/Salmeterol 1 puff INHALATION RT-BID 06/01/19 06/01/19 History [Wixela 250-50 Inhub] PARoxetine [Paxil] 20 mg PO DAILY 06/01/19 06/01/19 History Potassium Chloride ER [K-Dur 20] 20 meq PO DAILY 06/01/19 06/01/19 History SILVER sulfADIAZINE Cream 1 applic TOPICAL BID 06/01/19 06/01/19 History [Silvadene 1% Cream] Allergies Allergy/AdvReac Type Severity Reaction Status Date / Time codeine Allergy Unknown Verified 06/01/19 18:12 Childhood egg Allergy Swelling Verified 06/01/19 18:12 Penicillins Allergy Rash/Hives Verified 06/01/19 18:12 Sulfa (Sulfonamide Allergy Rash/Hives Verified 06/01/19 18:12 Antibiotics) Physical Exam Vitals: Vital Signs Temp Pulse Pulse Resp BP BP BP 06/02/19 09:28 98.1 F 17 149/73 06/02/19 07:49 72 06/02/19 07:38 72 06/02/19 05:00 96.7 F L 75 18 162/81 06/02/19 04:22 76 06/02/19 04:13 72 06/02/19 00:41 76 06/02/19 00:30 75 06/01/19 21:28 72 06/01/19 21:18 72 06/01/19 21:00 98.0 F 77 18 151/71 06/01/19 19:00 98.0 F 77 18 151/71 06/01/19 18:07 98.0 F 06/01/19 17:46 71 18 06/01/19 17:37 74 16 06/01/19 17:14 83 20 143/86 06/01/19 15:31 18 11/14/19 14:27 97.8 F 74 24 159/84 Pulse Ox 06/02/19 09:28 91 L 06/02/19 07:49 06/02/19 07:38 06/02/19 05:00 92 L 06/02/19 04:22 06/02/19 04:13 06/02/19 00:41 06/02/19 00:30 06/01/19 21:28 06/01/19 21:18 06/01/19 21:00 93 L 06/01/19 19:00 93 L 06/01/19 18:07 06/01/19 17:46 06/01/19 17:37 06/01/19 17:14 99 06/01/19 15:31 06/01/19 14:27 95 Intake and Output 06/01/19 06/02/19 06/02/19 22:59 06:59 14:59 Intake Total 300 400 Balance 300 400 Intake: Oral 300 400 Other: Voiding Method Bedside Commode Bedside Commode # Voids 1 2 General appearance: alert, in no apparent distress Head exam: Present: atraumatic, normocephalic, normal inspection Eye exam: Present: normal appearance, PERRL, EOMI. Absent: scleral icterus, conjunctival injection, periorbital swelling ENT exam: Present: mucous membranes dry Neck exam: Present: normal inspection. Absent: tenderness, meningismus, lymphadenopathy Respiratory exam: Present: decreased breath sounds. Absent: respiratory distress, wheezes, rales, rhonchi, stridor Cardiovascular Exam: Present: regular rate, normal rhythm, normal heart sounds. Absent: systolic murmur, diastolic murmur, rubs, gallop, clicks GI/Abdominal exam: Present: soft, normal bowel sounds. Absent: distended, tenderness, guarding, rebound, rigid Extremities exam: Present: full ROM, tenderness, normal capillary refill, calf tenderness, other (History of erythema localized temperature to both lower extremities. No palpable cords). Absent: pedal edema, joint swelling Back exam: Present: normal inspection Neurological exam: Present: alert, oriented X3, CN II-XII intact Psychiatric exam: Present: normal affect, normal mood Skin exam: Present: warm, dry, intact, other (Family the lower extremities as noted above). Absent: rash Results CBC & Chem 7: 06/01/19 15:00 06/02/19 10:53 Labs: Abnormal Lab Results - Last 24 Hours (Table) 06/01/19 06/02/19 Range/Units 15:00 06:58 Sodium 128 L (137-145) mmol/L Chloride 91 L (98-107) mmol/L Carbon Dioxide 31 H (22-30) mmol/L POC Glucose (mg/dL) 158 H (75-99) mg/dL AST 39 H (14-36) U/L Creatine Kinase 159 H (30-135) U/L Total Protein 6.2 L (6.3-8.2) g/dL Thrombosis Risk Factor Assmnt - Choose All That Apply Any of the Below Risk Factors Present?: Yes Each Factor Represents 1 point: Abnormal pulmonary function (COPD), Obesity (BMI >25), Swollen legs (current) Other Risk Factors: Yes Each Risk Factor Represents 2 Points: Age 61-74 years Each Risk Factor Represents 3 Points: History of DVT/PE Other congenital or acquired thrombophilia - If yes, enter type in comment: No Thrombosis Risk Factor Assessment Total Risk Factor Score: 8 Thrombosis Risk Factor Assessment Level: High Risk Assessment and Plan Assessment: 1. Cellulitis bilateral lower extremities - Patient was started on IV vancomycin in ED; we will continue with pharmacy dosing service; blood cultures are obtained and pending; we will monitor CBC - Consult ID for further recommendations 2. Acute exacerbation COPD - Solu-Medrol 60 mg IV every 6 hours; DuoNeb nebulizer treatments 4 times a day and when necessary; continue with Singulair 10 mg daily; O2 per nasal cannula keeping SpO2 greater than 90% 3. Marked hyponatremia; we will start patient on slow IV fluid hydration; monitor electrolytes and renal function closely; we will put patient on fluid restriction if sodium level continues to trend down 4. Hypertension; continue with home dose of lisinopril 20 mg daily, Lasix 20 mg every 48 hours 6. Hypothyroidism; continue with levothyroxine 175 MCG daily 7. Chronic back pain/ cervical stenosis; continue with Cymbalta and muscle relaxation therapy with Flexeril 8. DVT prophylaxis; subcu heparin CODE STATUS; full code
[2019-06-02] MEDS: MONTELUKAST 10 MG TAB PO SCH (20:22)
[2019-06-02 20:23] LABS: Glucose,Whole Blood 235 mg/dL (75-99)
[2019-06-03] MEDS: VANCOMYCIN 1,750 MG in SODIUM CHLORIDE 0.9% 500 ML 500 ML IVPB SCH (02:07)
[2019-06-03] MEDS: IPRATROPIUM-ALBUTEROL 3 ML NEB INHALATION SCH ×5 (03:32→19:15)
[2019-06-03] MEDS: LEVOTHYROXINE 88 MCG TAB PO SCH (05:48)
[2019-06-03] MEDS: LISINOPRIL 20 MG TAB PO SCH (05:48)
[2019-06-03] MEDS: methylPREDNISolone SOD SUCCI 125 MG/2 ML VIAL IV SCH ×4 (05:56→23:15)
[2019-06-03 06:40] LABS: Basophils % (A) 0 %; Eosinophils % (A) 0 %; HCT 40.4 % (34.0-46.0); HGB 13.6 gm/dL (11.4-16.0); Lymphocytes % (A) 9 %; MCH 31.4 pg (25.0-35.0); MCHC 33.8 g/dL (31.0-37.0); MCV 93.1 fL (80.0-100.0); Mean Platelet Volume 6.2; Monocytes # (A) 0.7 k/uL (0-1.0); Monocytes % (A) 6 %; Neutrophils # (A) 9.7 k/uL (1.3-7.7); Neutrophils % (A) 85 %; Platelet Count 171 k/uL (150-450); RBC 4.34 m/uL (3.80-5.40); RDW 12.4 % (11.5-15.5); WBC 11.5 k/uL (3.8-10.6)
[2019-06-03 06:45] LABS: African American GFR (CKD) >90 (>60 ml/min/1.73 sqM); Anion Gap 4 mmol/L; Blood Urea Nitrogen 11 mg/dL (7-17); Calcium 9.6 mg/dL (8.4-10.2); Carbon Dioxide 33 mmol/L (22-30); Chloride 92 mmol/L (98-107); Glucose 104 mg/dL (74-99); Non-African American GFR(CKD) >90 (>60 ml/min/1.73 sqM); Potassium 4.7 mmol/L (3.5-5.1); Sodium 129 mmol/L (137-145)
[2019-06-03 07:13] LABS: Glucose,Whole Blood 92 mg/dL (75-99)
[2019-06-03] MEDS: INSULIN ASPART (NovoLOG) 100 UNIT/ML VIAL SQ SCH ×4 (07:31→20:44)
[2019-06-03] MEDS: DIVALPROEX 500 MG TABLET.DR PO SCH ×3 (07:46→20:28)
[2019-06-03] MEDS: MAGNESIUM OXIDE 400 MG TAB PO SCH (07:46)
[2019-06-03] MEDS: HEPARIN SODIUM,PORCINE 5,000 UNIT/ML 1 ML VIAL SQ SCH ×2 (07:46→20:28)
[2019-06-03] MEDS: PARoxetine 10 MG TAB PO SCH (07:46)
[2019-06-03] MEDS: GABAPENTIN 400 MG CAP PO SCH ×3 (07:47→20:27)
[2019-06-03] MEDS: FUROSEMIDE 20 MG TAB PO SCH (07:47)
[2019-06-03] MEDS: lamoTRIgine 100 MG TAB PO SCH ×2 (07:47→20:27)
[2019-06-03] MEDS: busPIRone HCl 10 MG TAB PO SCH ×2 (07:47→20:27)
[2019-06-03] MEDS: PANTOPRAZOLE 40 MG TABLET PO SCH (07:47)
[2019-06-03] MEDS: TRIAMCINOLONE 0.1% CREAM 80 GM TUBE TOPICAL SCH (07:48)
[2019-06-03] MEDS: LORazepam 1 MG TAB PO PRN (07:57)
[2019-06-03] MEDS: SODIUM CHLORIDE 0.9% 1,000 ML IV SCH ×2 (10:49→15:44)
[2019-06-03 12:24] LABS: Glucose,Whole Blood 132 mg/dL (75-99)
--- NOTE | 2019-06-03 15:46 | P.PN ---
Subjective Progress Note Date: 06/03/19 Principal diagnosis: Cellulitis bilateral lower extremities Acute exacerbation COPD Hyponatremia 64-year-old female with a history of sepsis in lower extremity cellulitis in the past who was sent by her doctor today from the office with complaints of increased redness and swelling to the lower extremities she was also short of breath. She does say she is a 2 pack-a-day smoker. He states she's had a cough no phlegm no overt fevers chills or sweats he apparently had a low pulse ox in the office upon arrival here was in the mid 90s. She states she's been falling more recently he states for the past week or so she's had some pain with weakness in the lower extremities. No focal deficits. She does states she believes she had a DVT in the past. Workup in ED was significant for markedly low sodium level of 128 and patient was found to be in acute exacerbation of COPD; she is admitted to the hospital for further evaluation 06/03/2019 Patient is seen and evaluated in the room sitting up in the bedside chair; does report improvement in symptoms Vital signs remained stable with SpO2 of 92% on room air Lab reviews show slowly trending sodium level from 128 up to 129 this morning; white blood count is elevated at 11.5; patient remains on IV Solu-Medrol and vancomycin; we will start on slow IV fluid hydration with normal saline at a rate of 75 mL an hour; monitor electrolytes closely and make adjustments accordingly Objective - Vital Signs Vital signs: Vital Signs Temp 98 F 06/03/19 05:39 Pulse 80 06/03/19 07:14 Resp 20 06/03/19 05:39 BP 167/77 06/03/19 05:39 Pulse Ox 92 L 06/03/19 05:39 Intake & Output 06/02/19 06/03/19 06/03/19 18:59 06:59 18:59 Intake Total 300 Balance 300 Intake: Oral 300 Other: Voiding Method Bedside Commode Bedside Commode Bedside Commode # Voids 1 1 # Bowel Movements 0 0 - Exam PHYSICAL EXAMINATION: GENERAL: The patient is alert and oriented x3, not in any acute distress. Well developed, well nourished. HEENT: Pupils are round and equally reacting to light. EOMI. No scleral icterus. No conjunctival pallor. Normocephalic, atraumatic. No pharyngeal erythema. No thyromegaly. CARDIOVASCULAR: S1 and S2 present. No murmurs, rubs, or gallops. PULMONARY: Chest is clear to auscultation, no wheezing or crackles. ABDOMEN: Soft, nontender, nondistended, normoactive bowel sounds. No palpable organomegaly. MUSCULOSKELETAL: No joint swelling or deformity. EXTREMITIES: No cyanosis, clubbing, or pedal edema. NEUROLOGICAL: Gross neurological examination did not reveal any focal deficits. SKIN: No rashes. - Labs CBC & Chem 7: 06/03/19 06:00 06/03/19 06:00 Labs: Abnormal Lab Results - Last 24 Hours (Table) 06/02/19 06/02/19 06/02/19 Range/Units 10:53 12:02 17:01 WBC (3.8-10.6) k/uL Neutrophils # (1.3-7.7) k/uL Sodium 129 L (137-145) mmol/L Chloride 91 L (98-107) mmol/L Carbon Dioxide (22-30) mmol/L Glucose 234 H (74-99) mg/dL POC Glucose (mg/dL) 202 H 178 H (75-99) mg/dL 06/02/19 06/03/19 06/03/19 Range/Units 20:11 06:00 06:00 WBC 11.5 H (3.8-10.6) k/uL Neutrophils # 9.7 H (1.3-7.7) k/uL Sodium 129 L (137-145) mmol/L Chloride 92 L (98-107) mmol/L Carbon Dioxide 33 H (22-30) mmol/L Glucose 104 H (74-99) mg/dL POC Glucose (mg/dL) 235 H (75-99) mg/dL Microbiology - Last 24 Hours (Table) 06/01/19 15:00 Blood Culture - Preliminary Blood No Growth after 24 hours Assessment and Plan Assessment: 1. Cellulitis bilateral lower extremities - Patient was started on IV vancomycin in ED; we will continue with pharmacy dosing service; blood cultures are obtained and pending; we will monitor CBC - Consult ID for further recommendations 2. Acute exacerbation COPD - Solu-Medrol 60 mg IV every 6 hours; DuoNeb nebulizer treatments 4 times a day and when necessary; continue with Singulair 10 mg daily; O2 per nasal cannula keeping SpO2 greater than 90% 3. Marked hyponatremia; we will start patient on slow IV fluid hydration; monitor electrolytes and renal function closely; we will put patient on fluid restriction if sodium level continues to trend down 4. Hypertension; continue with home dose of lisinopril 20 mg daily, Lasix 20 mg every 48 hours 6. Hypothyroidism; continue with levothyroxine 175 MCG daily 7. Chronic back pain/ cervical stenosis; continue with Cymbalta and muscle rel axation therapy with Flexeril 8. DVT prophylaxis; subcu heparin CODE STATUS; full code Time with Patient: Greater than 30
[2019-06-03 17:05] LABS: Glucose,Whole Blood 152 mg/dL (75-99)
[2019-06-03] MEDS ORDERED: NICOTINE 21MG/24HR PATCH TRANSDERM SCH (17:45)
[2019-06-03] MEDS ORDERED: DOCUSATE 100 MG CAP PO PRN (20:01)
[2019-06-03 20:17] LABS: Glucose,Whole Blood 268 mg/dL (75-99)
[2019-06-03] MEDS: NICOTINE 21MG/24HR PATCH TRANSDERM SCH (20:27)
[2019-06-03] MEDS: MONTELUKAST 10 MG TAB PO SCH (20:28)
[2019-06-03] MEDS: HYDROcodone/APAP 10-325MG 1 EACH TAB PO PRN (20:29)
--- NOTE | 2019-06-03 22:26 | P.CONS ---
History of Present Illness - Reason for Consult Consult date: 06/03/19 - Chief Complaint Shortness of breath - History of Present Illness 64-year-old female presents to Hospital because of increasing shortness of breath is without evidence of bilateral lower extremity edema. Her presentation she was feeling very poorly with significant shortness of breath malaise and fatigue. Positive exacerbation of COPD and has not been treated with steroids reasonable treatments and some antibiotic therapy. However was concern for bilateral lower extremity cellulitis and without consult was requested. The patient relates her legs are swollen. She does take Lasix but she relates that she gets from her psychiatrist. We talk about her recent difficulties which are many. She is with lots of anxiety and is very anxious to be in hospital like to go home. She is denying fevers or chills and has only some minimal tenderness to the right lower extremity. Review of Systems HEENT:Denies headache or acute visual change. Denies sinus or mouth discomforts. Denies neck stiffness or pain. Denies significant oral cavity pain. Denies difficulty on swallowing. Lungs: Denies significant shortness of breath, cough, sputum production, or hemoptysis. Cardiovascular: Denies significant shortness of breath, chest pain, chest wall pain, orthopnea, dyspnea on exertion, syncope Gastrointestinal:Denies nausea, vomiting, diarrhea, constipation, hematemesis, melena, hematochezia. No no significant change of bowel habit noticed. Musculoskeletal: denies significant myalgias or arthralgias. No new joint swelling. Denies new back pain. Skin: Chronic redness and discoloration to the legs little more tender than usual has chronic edema. Neuro: Denies headache or visual change. Denies any new onset weakness or difficulty with ambulation. Denies falls or seizures. 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 History of Any Multi-Drug Resistant Organisms: None Reported Past Surgical History: Adenoidectomy, Section, Cholecystectomy, Hysterectomy, Tonsillectomy Additional Past Surgical History / Comment(s): EGD, colonoscopies, gastric bypass, surgery for deviated septum Past Anesthesia/Blood Transfusion Reactions: Previous Problems w/ Anesthesia Additional Past Anesthesia/Blood Transfusion Reaction / Comm: itching, some kind of problem after gastric bypass-not sure what happened Past Psychological History: Anxiety, Bipolar, Depression Additional Psychological History / Comment(s): Pt resides with her spouse. They have a cat. She states her depression is not an issue. She wears a back brace when up. Smoking Status: Current every day smoker Past Alcohol Use History: None Reported Additional Past Alcohol Use History / Comment(s): Pt states she has no idea at what age she began smoking. She states she has quit many times over the years but is currently smoking. Past Drug Use History: None Reported - Past Family History Mother Family Medical History: Congestive Heart Failure (CHF), Hypertension Father Additional Family Medical History / Comment(s): Father at the age of 45 yrs d/t having had rheumatic fever as a child and heart valve disease. Medications and Allergies Home Medications and Allergies Comment(s): Current Medications Hydrocodone Bitart/Acetaminophen ([place] 10) 1 each PO TID PRN PRN Reason: Moderate Pain Last Admin: 06/03/19 20:29 Dose: 1 each Documented by: Albuterol/Ipratropium (Duoneb 0.5 Mg-3 Mg/3 Ml Soln) 3 ml INHALATION RT-Q4H [facility] Last Admin: 06/03/19 19:15 Dose: 3 ml Documented by: Buspirone HCl (Buspar) 30 mg PO BID [facility] Last Admin: 06/03/19 20:27 Dose: 30 mg Documented by: Divalproex Sodium (Depakote) 500 mg PO TID [facility] Last Admin: 06/03/19 20:28 Dose: 500 mg Documented by: Docusate Sodium (Colace) 100 mg PO DAILY PRN PRN Reason: Constipation Last Admin: 06/03/19 20:41 Dose: 100 mg Documented by: Furosemide (Lasix) 20 mg PO DAILY [facility] Last Admin: 06/03/19 07:47 Dose: 20 mg Documented by: Gabapentin (Neurontin) 800 mg PO TID [facility] Last Admin: 06/03/19 20:27 Dose: 800 mg Documented by: Heparin Sodium (Porcine) (Heparin) 5,000 unit SQ Q12HR [facility] Last Admin: 06/03/19 20:28 Dose: 5,000 unit Documented by: Sodium Chloride (Saline 0.9%) 1,000 mls @ 20 mls/hr IV .Q24H [facility] Last Admin: 06/03/19 15:44 Dose: Not Given Documented by: Ceftriaxone Sodium 1 gm/ (Sodium Chloride) 50 mls @ 100 mls/hr IVPB Q24HR [facility] Last Admin: 06/03/19 07:47 Dose: 100 mls/hr Documented by: Sodium Chloride (Saline 0.9%) 1,000 mls @ 75 mls/hr IV .[id number] [facility] Last Admin: 06/03/19 10:49 Dose: 75 mls/hr Documented by: Insulin Aspart (Novolog) 0 unit SQ ACHS [facility]; Protocol Last Admin: 06/03/19 20:44 Dose: 8 unit Documented by: Lamotrigine (Lamictal) 100 mg PO BID [facility] Last Admin: 06/03/19 20:27 Dose: 100 mg Documented by: Levothyroxine Sodium (Synthroid) 176 mcg PO DAILY@0630 [facility] Last Admin: 06/03/19 05:48 Dose: 176 mcg Documented by: Lisinopril (Zestril) 20 mg PO DAILY [facility] Last Admin: 06/03/19 05:48 Dose: 20 mg Documented by: Lorazepam (Ativan) 1 mg PO BID PRN PRN Reason: Anxiety Last Admin: 06/03/19 07:57 Dose: 1 mg Documented by: Magnesium Oxide (Mag-Ox) 400 mg PO DAILY [facility] Last Admin: 06/03/19 07:46 Dose: 400 mg Documented by: Methylprednisolone Sodium Succinate (Solu-Medrol) 60 mg IV Q6HR [facility] Last Admin: 06/03/19 16:54 Dose: 60 mg Documented by: Montelukast Sodium (Singulair) 10 mg PO HS [facility] Last Admin: 06/03/19 20:28 Dose: 10 mg Documented by: Nicotine (Habitrol 21mg/24hr Patch) 1 patch TRANSDERM [facility] Last Admin: 06/03/19 20:27 Dose: 1 patch Documented by: Pantoprazole Sodium (Protonix) 40 mg PO DAILY [facility] Last Admin: 06/03/19 07:47 Dose: 40 mg Documented by: Paroxetine HCl (Paxil) 50 mg PO DAILY [facility] Last Admin: 06/03/19 07:46 Dose: 50 mg Documented by: Silver Sulfadiazine (Silvadene Cream) 1 applic TOPICAL [facility] Triamcinolone Acetonide (Kenalog) 1 applic TOPICAL BID [facility] Last Admin: 06/03/19 07:48 Dose: 1 applic Documented by: Home Medications Medication Instructions Recorded Confirmed Type Divalproex [Depakote] 500 mg PO BID 12/17/13 06/01/19 History Furosemide [Lasix] 20 mg PO Q48H 12/17/13 06/01/19 History Gabapentin [Neurontin] 800 mg PO BID 12/17/13 06/01/19 History Levothyroxine Sodium [Levoxyl] 175 mcg PO DAILY 12/17/13 06/01/19 History Lisinopril [Zestril] 20 mg PO DAILY 12/17/13 06/01/19 History Montelukast [Singulair] 10 mg PO HS 12/17/13 06/01/19 History busPIRone HCL [Buspar] 30 mg PO BID 12/17/13 06/01/19 History lamoTRIgine [LaMICtal] 100 mg PO BID 12/17/13 06/01/19 History Albuterol Sulfate [Proair Hfa] 1 - 2 puff INHALATION RT-Q6H PRN 05/07/18 06/01/19 History Magnesium Oxide [Mag-Ox] 400 mg PO DAILY 05/07/18 06/01/19 History Triamcinolone 0.025% Cream 1 applic TOPICAL BID PRN 05/07/18 06/01/19 History [Kenalog 0.025% Cream] Cyclobenzaprine [Flexeril] 10 mg PO BID 06/01/19 06/01/19 History Fluticasone Propion/Salmeterol 1 puff INHALATION RT-BID 06/01/19 06/01/19 History [Wixela 250-50 Inhub] PARoxetine [Paxil] 20 mg PO DAILY 06/01/19 06/01/19 History Potassium Chloride ER [K-Dur 20] 20 meq PO DAILY 06/01/19 06/01/19 History SILVER sulfADIAZINE Cream 1 applic TOPICAL BID 06/01/19 06/01/19 History [Silvadene 1% Cream] Allergies Allergy/AdvReac Type Severity Reaction Status Date / Time codeine Allergy Unknown Verified 06/01/19 18:12 Childhood egg Allergy Swelling Verified 06/01/19 18:12 Penicillins Allergy Rash/Hives Verified 06/01/19 18:12 Sulfa (Sulfonamide Allergy Rash/Hives Verified 06/01/19 18:12 Antibiotics) Physical Exam Vitals: Vital Signs Temp Pulse Pulse Resp BP Pulse Ox 06/03/19 21:45 98.6 F 82 20 168/78 90 L 06/03/19 19:16 94 95 06/03/19 15:24 89 06/03/19 15:13 86 06/03/19 15:00 98.8 F 81 20 162/79 91 L 06/03/19 11:17 84 06/03/19 11:03 88 06/03/19 07:14 80 06/03/19 07:04 80 06/03/19 05:39 98 F 92 20 167/77 92 L 06/03/19 03:54 76 06/03/19 03:33 72 06/02/19 23:40 84 06/02/19 23:19 80 Intake and Output 06/03/19 06/03/19 06/03/19 06:59 14:59 22:59 Intake Total 100 200 Balance 100 200 Intake: Oral 100 200 Other: Voiding Method Bedside Commode Bedside Commode Bedside Commode # Voids 1 3 0 # Bowel Movements 0 1 0 HEENT: Anicteric conjunctiva are pink and moist nasal mucosa grossly intact w ithout significant lesions, there is no thrush. Neck: The neck is supple without significant lymphadenopathy or thyromegaly. Lungs: Symmetrical air entry is noted bibasilar crackles are noted expiratory wheezes are scattered on dullness or egophony Heart: Regular rate and rhythm with an audible S1-S2, no S3 no S4. There is no significant murmur click or rub, PMI was nondisplaced. Abdomen: Be's, Positive bowel sounds soft and nontender without palpable masses or organomegaly. There was no guarding or rebound. Extremities: The upper extremities without acute lesions. The lower extremities have evidence of chronic bilateral lower extremity edema is evidence of a recent fall with evidence of a few eschars that are almost completely healed over the knees without evidence of cellulitis in this area. The right lower extremity no on the more distal aspect of the calf shows evidence of an area of warmth and tenderness that is much more warm and tender than the left side. Neuro: Awake alert oriented to person place and time. There are no acute new gross focal sensory motor deficits. Results CBC & Chem 7: 06/03/19 06:00 06/03/19 06:00 Labs: Abnormal Lab Results - Last 24 Hours (Table) 06/03/19 06/03/19 06/03/19 Range/Units 06:00 06:00 12:18 WBC 11.5 H (3.8-10.6) k/uL Neutrophils # 9.7 H (1.3-7.7) k/uL Sodium 129 L (137-145) mmol/L Chloride 92 L (98-107) mmol/L Carbon Dioxide 33 H (22-30) mmol/L Glucose 104 H (74-99) mg/dL POC Glucose (mg/dL) 132 H (75-99) mg/dL 06/03/19 06/03/19 Range/Units 17:01 20:14 WBC (3.8-10.6) k/uL Neutrophils # (1.3-7.7) k/uL Sodium (137-145) mmol/L Chloride (98-107) mmol/L Carbon Dioxide (22-30) mmol/L Glucose (74-99) mg/dL POC Glucose (mg/dL) 152 H 268 H (75-99) mg/dL Microbiology - Last 24 Hours (Table) 06/01/19 15:00 Blood Culture - Preliminary Blood No Growth after 48 hours Laboratory Results WBC 11.5 k/uL (3.8-10.6) H 06/03/19 06:00 RBC 4.34 m/uL (3.80-5.40) 06/03/19 06:00 Hgb 13.6 gm/dL (11.4-16.0) 06/03/19 06:00 Hct 40.4 % (34.0-46.0) 06/03/19 06:00 MCV 93.1 fL (80.0-100.0) 06/03/19 06:00 MCH 31.4 pg (25.0-35.0) 06/03/19 06:00 MCHC 33.8 g/dL (31.0-37.0) 06/03/19 06:00 RDW 12.4 % (11.5-15.5) 06/03/19 06:00 Plt Count 171 k/uL (150-450) 06/03/19 06:00 Neutrophils % 85 % 06/03/19 06:00 Lymphocytes % 9 % 06/03/19 06:00 Monocytes % 6 % 06/03/19 06:00 Eosinophils % 0 % 06/03/19 06:00 Basophils % 0 % 06/03/19 06:00 Neutrophils # 9.7 k/uL (1.3-7.7) H 06/03/19 06:00 Lymphocytes # 1.0 k/uL (1.0-4.8) 06/03/19 06:00 Monocytes # 0.7 k/uL (0-1.0) 06/03/19 06:00 Eosinophils # 0.0 k/uL (0-0.7) 06/03/19 06:00 Basophils # 0.0 k/uL (0-0.2) 06/03/19 06:00 D-Dimer 0.51 mg/L FEU (<0.60) 06/01/19 15:00 Sodium 129 mmol/L (137-145) L 06/03/19 06:00 Potassium 4.7 mmol/L (3.5-5.1) 06/03/19 06:00 Chloride 92 mmol/L (98-107) L 06/03/19 06:00 Carbon Dioxide 33 mmol/L (22-30) H 06/03/19 06:00 Anion Gap 4 mmol/L 06/03/19 06:00 BUN 11 mg/dL (7-17) 06/03/19 06:00 Creatinine 0.52 mg/dL (0.52-1.04) 06/03/19 06:00 Est GFR (CKD-EPI)AfAm >90 (>60 ml/min/1.73 sqM) 06/03/19 06:00 Est GFR (CKD-EPI)NonAf >90 (>60 ml/min/1.73 sqM) 06/03/19 06:00 Glucose 104 mg/dL (74-99) H 06/03/19 06:00 POC Glucose (mg/dL) 268 mg/dL (75-99) H 06/03/19 20:14 POC Glu Cremator Elvia Cruz 06/03/19 20:14 Plasma Lactic Acid Joel 1.3 mmol/L (0.7-2.0) 06/01/19 15:00 Calcium 9.6 mg/dL (8.4-10.2) 06/03/19 06:00 Magnesium 1.7 mg/dL (1.6-2.3) 06/01/19 15:00 Total Bilirubin 0.4 mg/dL (0.2-1.3) 06/01/19 15:00 AST 39 U/L (14-36) H 06/01/19 15:00 ALT 21 U/L (9-52) 06/01/19 15:00 Alkaline Phosphatase 78 U/L (38-126) 06/01/19 15:00 Creatine Kinase 159 U/L (30-135) H 06/01/19 15:00 Troponin I <0.012 ng/mL (0.000-0.034) 06/01/19 15:00 NT-Pro-B Natriuret Pep 338 pg/mL 06/01/19 15:00 Total Protein 6.2 g/dL (6.3-8.2) L 06/01/19 15:00 Albumin 3.8 g/dL (3.5-5.0) 06/01/19 15:00 Microbiology 06/01/19 15:00 Blood Blood Culture - Preliminary No Growth after 48 hours Assessment and Plan (1) Acute exacerbation of chronic obstructive pulmonary disease Current Visit: Yes Status: Acute Code(s): J44.1 - CHRONIC OBSTRUCTIVE PULMONARY DISEASE W (ACUTE) EXACERBATION SNOMED Code(s): 265862605 (2) Bilateral lower leg cellulitis Narrative/Plan: 64-year-old female with a history of chronic mental illness with anxiety and depression was not feeling well. She presented to Hospital and there is evidence of some increased shortness of breath and relative hypoxia with a low pulse oximetry. She's never treated with steroids, antibiotic therapy and respiratory treatments and she is feeling better. She is evidence of significant hyponatremia is being actively treated. She is wants to go home. She is instructed on the significant hyponatremia inhabits being treated by her hospitalist at this point in time. That hopefully will rapidly resolved. Recommendations the lower extremities there does appear to be some cellulitis of the right lower extremity it is quite mild. She does have chronic venous stasis without ulcerations. The injury from her fall has resulted in some eschar to her knees that are not infected and are looking quite well this point in time. Lower extremities can be treated with Silvadene rolled gauze and wraps to try to improve the edema. Antibiotic therapy streamlined to just Rocephin. As she improves and gets ready for discharge to home transitioned her to cefuroxime to complete a 7 day course of therapy for the acute exacerbation of COPD as well as cellulitis to the lower extremity. She is a smoker and the nicotine patches added. Current Visit: Yes Status: Acute Code(s): L03.116 - CELLULITIS OF LEFT LOWER LIMB; L03.115 - CELLULITIS OF RIGHT LOWER LIMB SNOMED Code(s): 948621788
[2019-06-04] MEDS: IPRATROPIUM-ALBUTEROL 3 ML NEB INHALATION SCH ×4 (00:37→10:58)
[2019-06-04] MEDS: TRIAMCINOLONE 0.1% CREAM 80 GM TUBE TOPICAL SCH ×3 (01:07→23:02)
[2019-06-04] MEDS: SODIUM CHLORIDE 0.9% 1,000 ML IV SCH ×2 (05:16→07:54)
[2019-06-04] MEDS: methylPREDNISolone SOD SUCCI 125 MG/2 ML VIAL IV SCH ×2 (05:33→11:36)
[2019-06-04] MEDS: LEVOTHYROXINE 88 MCG TAB PO SCH (05:33)
[2019-06-04 07:20] LABS: Glucose,Whole Blood 121 mg/dL (75-99)
[2019-06-04] MEDS: INSULIN ASPART (NovoLOG) 100 UNIT/ML VIAL SQ SCH ×4 (07:44→22:22)
[2019-06-04] MEDS: MAGNESIUM OXIDE 400 MG TAB PO SCH (07:52)
[2019-06-04] MEDS: busPIRone HCl 10 MG TAB PO SCH ×2 (07:52→22:20)
[2019-06-04] MEDS: PANTOPRAZOLE 40 MG TABLET PO SCH (07:52)
[2019-06-04] MEDS: PARoxetine 10 MG TAB PO SCH (07:52)
[2019-06-04] MEDS: DIVALPROEX 500 MG TABLET.DR PO SCH ×3 (07:52→22:20)
[2019-06-04] MEDS: lamoTRIgine 100 MG TAB PO SCH ×2 (07:52→22:20)
[2019-06-04] MEDS: FUROSEMIDE 20 MG TAB PO SCH (07:52)
[2019-06-04] MEDS: LISINOPRIL 20 MG TAB PO SCH (07:52)
[2019-06-04] MEDS: GABAPENTIN 400 MG CAP PO SCH ×3 (07:53→22:20)
[2019-06-04] MEDS: HEPARIN SODIUM,PORCINE 5,000 UNIT/ML 1 ML VIAL SQ SCH ×2 (07:53→22:21)
[2019-06-04] MEDS: LORazepam 1 MG TAB PO PRN ×2 (07:58→22:44)
[2019-06-04] MEDS: HYDROcodone/APAP 10-325MG 1 EACH TAB PO PRN ×2 (07:58→22:59)
[2019-06-04 09:53] LABS: Basophils % (A) 0 %; Eosinophils % (A) 0 %; HCT 43.7 % (34.0-46.0); HGB 14.3 gm/dL (11.4-16.0); Lymphocytes # (A) 0.4 k/uL (1.0-4.8); Lymphocytes % (A) 5 %; MCH 31.2 pg (25.0-35.0); MCHC 32.7 g/dL (31.0-37.0); MCV 95.5 fL (80.0-100.0); Monocytes # (A) 0.3 k/uL (0-1.0); Monocytes % (A) 4 %; Neutrophils # (A) 8.2 k/uL (1.3-7.7); Neutrophils % (A) 91 %; Platelet Count 153 k/uL (150-450); RBC 4.58 m/uL (3.80-5.40); RDW 12.6 % (11.5-15.5)
[2019-06-04 10:05] LABS: African American GFR (CKD) >90 (>60 ml/min/1.73 sqM); Anion Gap 7 mmol/L; Blood Urea Nitrogen 14 mg/dL (7-17); Calcium 9.7 mg/dL (8.4-10.2); Carbon Dioxide 29 mmol/L (22-30); Chloride 92 mmol/L (98-107); Glucose 264 mg/dL (74-99); Non-African American GFR(CKD) >90 (>60 ml/min/1.73 sqM); Potassium 4.4 mmol/L (3.5-5.1); Sodium 128 mmol/L (137-145)
[2019-06-04 11:42] LABS: Glucose,Whole Blood 129 mg/dL (75-99)
[2019-06-04] MEDS: SODIUM CHLORIDE TAB 1 GM TAB PO SCH ×2 (13:59→22:23)
[2019-06-04 14:22] VITALS: RESP 18
--- NOTE | 2019-06-04 16:00 | P.PN ---
Subjective Progress Note Date: 06/04/19 Principal diagnosis: Cellulitis bilateral lower extremities Acute exacerbation COPD Hyponatremia 64-year-old female with a history of sepsis in lower extremity cellulitis in the past who was sent by her doctor today from the office with complaints of increased redness and swelling to the lower extremities she was also short of breath. She does say she is a 2 pack-a-day smoker. He states she's had a cough no phlegm no overt fevers chills or sweats he apparently had a low pulse ox in the office upon arrival here was in the mid 90s. She states she's been falling more recently he states for the past week or so she's had some pain with weakness in the lower extremities. No focal deficits. She does states she believes she had a DVT in the past. Workup in ED was significant for markedly low sodium level of 128 and patient was found to be in acute exacerbation of COPD; she is admitted to the hospital for further evaluation 06/03/2019 Patient is seen and evaluated in the room sitting up in the bedside chair; does report improvement in symptoms Vital signs remained stable with SpO2 of 92% on room air Lab reviews show slowly trending sodium level from 128 up to 129 this morning; white blood count is elevated at 11.5; patient remains on IV Solu-Medrol and vancomycin; we will start on slow IV fluid hydration with normal saline at a rate of 75 mL an hour; monitor electrolytes closely and make adjustments accordingly 06/04/2019 Patient is seen and evaluated in room at bedside; wants to be discharged home; has no specific complaints though Vital signs remained stable with blood pressure 155/64, pulse 92 and SpO2 of 93% on room air Labs are stable with a white blood count of 9.0; sodium has trended down from 13 9 yesterday down to 128; blood sugar remains slightly elevated ranging between 129-264 ID has seen patient and is recommended to continue IV antibiotics transitioning to oral Keflex for 7 days post discharge; patient is started on sodium chloride tablets 1 g by mouth twice a day; we'll continue with normal saline and monitor electrolytes closely; possible discharge in next 24 hours if sodium levels remained stable Objective - Vital Signs Vital signs: Vital Signs Temp 98.1 F 06/04/19 04:45 Pulse 88 06/04/19 11:10 Resp 20 06/04/19 04:45 BP 173/82 06/04/19 04:45 Pulse Ox 91 L 06/04/19 04:45 Intake & Output 06/03/19 06/04/19 06/04/19 18:59 06:59 18:59 Intake Total 200 200 Balance 200 200 Intake: Oral 200 200 Other: Voiding Method Bedside Commode Bedside Commode Bedside Commode # Voids 3 2 3 # Bowel Movements 1 0 - Exam PHYSICAL EXAMINATION: GENERAL: The patient is alert and oriented x3, not in any acute distress. Well developed, well nourished. HEENT: Pupils are round and equally reacting to light. EOMI. No scleral icterus. No conjunctival pallor. Normocephalic, atraumatic. No pharyngeal erythema. No thyromegaly. CARDIOVASCULAR: S1 and S2 present. No murmurs, rubs, or gallops. PULMONARY: Chest is clear to auscultation, no wheezing or crackles. ABDOMEN: Soft, nontender, nondistended, normoactive bowel sounds. No palpable organomegaly. MUSCULOSKELETAL: No joint swelling or deformity. EXTREMITIES: No cyanosis, clubbing, or pedal edema. NEUROLOGICAL: Gross neurological examination did not reveal any focal deficits. SKIN: No rashes. - Labs CBC & Chem 7: 06/04/19 09:12 06/04/19 09:12 Labs: Abnormal Lab Results - Last 24 Hours (Table) 06/03/19 06/03/19 06/04/19 Range/Units 17:01 20:14 07:17 Neutrophils # (1.3-7.7) k/uL Lymphocytes # (1.0-4.8) k/uL Sodium (137-145) mmol/L Chloride (98-107) mmol/L Glucose (74-99) mg/dL POC Glucose (mg/dL) 152 H 268 H 121 H (75-99) mg/dL 06/04/19 06/04/19 06/04/19 Range/Units 09:12 09:12 11:40 Neutrophils # 8.2 H (1.3-7.7) k/uL Lymphocytes # 0.4 L (1.0-4.8) k/uL Sodium 128 L (137-145) mmol/L Chloride 92 L (98-107) mmol/L Glucose 264 H (74-99) mg/dL POC Glucose (mg/dL) 129 H (75-99) mg/dL Microbiology - Last 24 Hours (Table) 06/01/19 15:00 Blood Culture - Preliminary Blood No Growth after 48 hours Assessment and Plan Assessment: 1. Cellulitis bilateral lower extremities - Patient was started on IV vancomycin in ED; we will continue with pharmacy dosing service; blood cultures are obtained and pending; we will monitor CBC - Consult ID for further recommendations 2. Acute exacerbation COPD - Solu-Medrol 60 mg IV every 6 hours; DuoNeb nebulizer treatments 4 times a day and when necessary; continue with Singulair 10 mg daily; O2 per nasal cannula keeping SpO2 greater than 90% 3. Marked hyponatremia; we will start patient on slow IV fluid hydration; monitor electrolytes and renal function closely; we will put patient on fluid restriction if sodium level continues to trend down 4. Hypertension; continue with home dose of lisinopril 20 mg daily, Lasix 20 mg every 48 hours 6. Hypothyroidism; continue with levothyroxine 175 MCG daily 7. Chronic back pain/ cervical stenosis; continue with Cymbalta and muscle relaxation therapy with Flexeril 8. DVT prophylaxis; subcu heparin CODE STATUS; full code Time with Patient: Greater than 30
[2019-06-04 16:54] LABS: Glucose,Whole Blood 102 mg/dL (75-99)
[2019-06-04 21:35] LABS: Glucose,Whole Blood 82 mg/dL (75-99)
[2019-06-04] MEDS: MONTELUKAST 10 MG TAB PO SCH (22:20)
[2019-06-04] MEDS: NICOTINE 21MG/24HR PATCH TRANSDERM SCH (22:21)
[2019-06-04] MEDS: methylPREDNISolone SOD SUCCI 40 MG/ML 1 ML VIAL IV SCH (22:22)
[2019-06-05] MEDS: LEVOTHYROXINE 88 MCG TAB PO SCH (05:40)
[2019-06-05] MEDS: SODIUM CHLORIDE 0.9% 1,000 ML IV SCH (05:41)
[2019-06-05 07:20] LABS: Glucose,Whole Blood 87 mg/dL (75-99)
[2019-06-05 07:55] LABS: Basophils % (A) 0 %; Eosinophils % (A) 0 %; HCT 42.5 % (34.0-46.0); HGB 13.9 gm/dL (11.4-16.0); Lymphocytes # (A) 1.2 k/uL (1.0-4.8); Lymphocytes % (A) 14 %; MCH 30.8 pg (25.0-35.0); MCHC 32.7 g/dL (31.0-37.0); Monocytes # (A) 0.6 k/uL (0-1.0); Monocytes % (A) 7 %; Neutrophils # (A) 6.6 k/uL (1.3-7.7); Neutrophils % (A) 78 %; Platelet Count 151 k/uL (150-450); RBC 4.52 m/uL (3.80-5.40); RDW 12.6 % (11.5-15.5); WBC 8.5 k/uL (3.8-10.6)
[2019-06-05] MEDS: INSULIN ASPART (NovoLOG) 100 UNIT/ML VIAL SQ SCH ×2 (08:02→12:27)
[2019-06-05 08:03] LABS: African American GFR (CKD) >90 (>60 ml/min/1.73 sqM); Anion Gap 3 mmol/L; Blood Urea Nitrogen 13 mg/dL (7-17); Calcium 9.4 mg/dL (8.4-10.2); Carbon Dioxide 36 mmol/L (22-30); Chloride 93 mmol/L (98-107); Glucose 87 mg/dL (74-99); Non-African American GFR(CKD) >90 (>60 ml/min/1.73 sqM); Potassium 4.8 mmol/L (3.5-5.1); Sodium 132 mmol/L (137-145)
[2019-06-05] MEDS: SODIUM CHLORIDE TAB 1 GM TAB PO SCH (08:05)
[2019-06-05] MEDS: lamoTRIgine 100 MG TAB PO SCH (08:06)
[2019-06-05] MEDS: MAGNESIUM OXIDE 400 MG TAB PO SCH (08:06)
[2019-06-05] MEDS: DIVALPROEX 500 MG TABLET.DR PO SCH (08:06)
[2019-06-05] MEDS: LISINOPRIL 20 MG TAB PO SCH (08:06)
[2019-06-05] MEDS: methylPREDNISolone SOD SUCCI 40 MG/ML 1 ML VIAL IV SCH (08:06)
[2019-06-05] MEDS: GABAPENTIN 400 MG CAP PO SCH (08:06)
[2019-06-05] MEDS: busPIRone HCl 10 MG TAB PO SCH (08:07)
[2019-06-05] MEDS: TRIAMCINOLONE 0.1% CREAM 80 GM TUBE TOPICAL SCH (08:07)
[2019-06-05] MEDS: PARoxetine 10 MG TAB PO SCH (08:07)
[2019-06-05] MEDS: PANTOPRAZOLE 40 MG TABLET PO SCH (08:07)
[2019-06-05] MEDS: HEPARIN SODIUM,PORCINE 5,000 UNIT/ML 1 ML VIAL SQ SCH (08:07)
[2019-06-05] MEDS: FUROSEMIDE 20 MG TAB PO SCH (08:07)
[2019-06-05 08:13] VITALS: BP 163/83; PULSE 83; TEMP 98.1
--- NOTE | 2019-06-05 11:50 | P.DS ---
Providers Date of admission: 06/03/19 14:50 Expected date of discharge: 06/05/19 Attending physician: Andrzej Wheeler Consults: 06/02/19 17:40 Consult Physician Routine Consulting Provider: Cheng Nunn Consult Reason/Comments: cellulitis b/l LE Do you want consulting provider notified?: Yes Primary care physician: Andrzej Wheeler Hospital Course: 64-year-old female presented to family physician with complaints of increased redness and pain to her lower extremities. Patient was finding to be hypoxic. Was sent to the emergency room and admitted for cellulitis and exacerbation of COPD. Patient was treated by infectious disease improved and wanting to be discharged Assessment Cellulitis bilateral lower extremities Acute exacerbation of COPD Marked hyponatremia corrected Hypertension Hypothyroidism Chronic neck and back pain Plan Follow-up with family physician Dr. Andrzej Wheeler Infectious disease Dr. Nunn Follow-up with thiokol operator Patient Condition at Discharge: Fair Plan - Discharge Summary Discharge Rx Participant: No New Discharge Prescriptions: New Cefuroxime [Ceftin] 250 mg PO BID #14 tablet Docusate [Colace] 100 mg PO DAILY PRN cap PRN Reason: Constipation Nicotine 21Mg/24Hr Patch [Habitrol] 1 patch TRANSDERM HS #28 patch predniSONE 10 mg PO DAILY #40 tab Continue Furosemide [Lasix] 20 mg PO Q48H Divalproex [Depakote] 500 mg PO BID Lisinopril [Zestril] 20 mg PO DAILY Levothyroxine Sodium [Levoxyl] 175 mcg PO DAILY lamoTRIgine [LaMICtal] 100 mg PO BID busPIRone HCL [Buspar] 30 mg PO BID Montelukast [Singulair] 10 mg PO HS Gabapentin [Neurontin] 800 mg PO BID Albuterol Sulfate [Proair Hfa] 1 - 2 puff INHALATION RT-Q6H PRN PRN Reason: Shortness Of Breath Magnesium Oxide [Mag-Ox] 400 mg PO DAILY Triamcinolone 0.025% Cream [Kenalog 0.025% Cream] 1 applic TOPICAL BID PRN PRN Reason: Rash PARoxetine [Paxil] 20 mg PO DAILY SILVER sulfADIAZINE Cream [Silvadene 1% Cream] 1 applic TOPICAL BID Potassium Chloride ER [K-Dur 20] 20 meq PO DAILY Cyclobenzaprine [Flexeril] 10 mg PO BID Fluticasone Propion/Salmeterol [Wixela 250-50 Inhub] 1 puff INHALATION RT-BID Discharge Medication List Divalproex [Depakote] 500 mg PO BID 12/17/13 [History] Furosemide [Lasix] 20 mg PO Q48H 12/17/13 [History] Gabapentin [Neurontin] 800 mg PO BID 12/17/13 [History] Levothyroxine Sodium [Levoxyl] 175 mcg PO DAILY 12/17/13 [History] Lisinopril [Zestril] 20 mg PO DAILY 12/17/13 [History] Montelukast [Singulair] 10 mg PO HS 12/17/13 [History] busPIRone HCL [Buspar] 30 mg PO BID 12/17/13 [History] lamoTRIgine [LaMICtal] 100 mg PO BID 12/17/13 [History] Albuterol Sulfate [Proair Hfa] 1 - 2 puff INHALATION RT-Q6H PRN 05/07/18 [History] Magnesium Oxide [Mag-Ox] 400 mg PO DAILY 05/07/18 [History] Triamcinolone 0.025% Cream [Kenalog 0.025% Cream] 1 applic TOPICAL BID PRN 05/07/18 [History] Cyclobenzaprine [Flexeril] 10 mg PO BID 06/01/19 [History] Fluticasone Propion/Salmeterol [W[place]ela 250-50 Inhub] 1 puff INHALATION RT-BID 06/01/19 [History] PARoxetine [Paxil] 20 mg PO DAILY 06/01/19 [History] Potassium Chloride ER [K-Dur 20] 20 meq PO DAILY 06/01/19 [History] SILVER sulfADIAZINE Cream [Silvadene 1% Cream] 1 applic TOPICAL BID 06/01/19 [History] Cefuroxime [Ceftin] 250 mg PO BID #14 tablet 06/05/19 [Rx] Docusate [Colace] 100 mg PO DAILY PRN cap 06/05/19 [Rx] Nicotine 21Mg/24Hr Patch [Habitrol] 1 patch TRANSDERM HS #28 patch 06/05/19 [Rx] predniSONE 10 mg PO DAILY #40 tab 06/05/19 [Rx] Follow up Appointment(s)/Referral(s): Andrzej Wheeler MD [Primary Care Provider] - 1-2 days [facility] Visiting Nurse, [NON-STAFF] -
[2019-06-05 12:03] LABS: Glucose,Whole Blood 99 mg/dL (75-99)
[2019-06-05] MEDS ORDERED: SILVER sulfADIAZINE Cream 400 GM 1 APPLIC APPLIC TOPICAL SCH (21:00)
== END 2019-06-05 12:41 | disposition home health service (06) | DRG 191 ==
LOC: EC 14:22 → 4MS4W 17:19 → OBSVTOIN 06-03 14:50
PROVIDERS: ADMIT Family Medicine; ATTEND Family Medicine
DX: J44.1 Chronic obstructive pulmonary disease with (acute) exacerbation (principal); L03.116 Cellulitis of left lower limb; L03.115 Cellulitis of right lower limb; E87.1 Hypo-osmolality and hyponatremia; E03.9 Hypothyroidism, unspecified; E11.9 Type 2 diabetes mellitus without complications; F17.210 Nicotine dependence, cigarettes, uncomplicated; F31.9 Bipolar disorder, unspecified; F41.9 Anxiety disorder, unspecified; G89.29 Other chronic pain; I10 Essential (primary) hypertension; I87.8 Other specified disorders of veins; M41.9 Scoliosis, unspecified; M48.02 Spinal stenosis, cervical region; M79.7 Fibromyalgia; R09.02 Hypoxemia; Z79.890 Hormone replacement therapy; Z79.899 Other long term (current) drug therapy; Z82.49 Family history of ischemic heart disease and other diseases of the circulatory system; Z86.711 Personal history of pulmonary embolism; Z86.718 Personal history of other venous thrombosis and embolism; Z87.19 Personal history of other diseases of the digestive system; Z90.710 Acquired absence of both cervix and uterus; Z98.84 Bariatric surgery status; Z88.5 Allergy status to narcotic agent; Z88.0 Allergy status to penicillin; Z88.2 Allergy status to sulfonamides; Z91.012 Allergy to eggs; Z90.49 Acquired absence of other specified parts of digestive tract
CPT/HCPCS: 36415; 71046; 80048; 80053; 82550; 83605; 83735; 83880; 84484; 85025; 85379; 87040; 93005; 93970; 94640; 94760; 96374; 99285; 99406

== ENCOUNTER → 2019-06-14 | Outpatient (CLI) | payer MEDICARE ==
[2019-06-14 16:12] LABS: HGB 13.2 gm/dL (11.4-16.0); MCH 31.5 pg (25.0-35.0); MCHC 33.9 g/dL (31.0-37.0); Mean Platelet Volume 6.4; Platelet Count 219 k/uL (150-450); RDW 12.5 % (11.5-15.5); WBC 9.9 k/uL (3.8-10.6)
[2019-06-15 01:19] LABS: African American GFR (CKD) 107.6 (60.0-200.0); Anion Gap 8.4 mmol/L (4.00-12.00); BUN/Creat Ratio 18.57 Ratio (12.00-20.00); Calcium 9.3 mg/dL (8.7-10.3); Carbon Dioxide 29.6 mmol/L (21.6-31.8); Non-African American GFR(CKD) 92.9 (60.0-200.0)
[2019-06-15 01:55] LABS: Hemoglobin A1C 5.7 % (4.0-6.0)
== END | disposition home or self-care (01) ==
LOC: LABWHC1 15:25
PROVIDERS: ATTEND Psychiatry & Neurology Psychiatry
DX: E03.9 Hypothyroidism, unspecified (principal); E87.1 Hypo-osmolality and hyponatremia; E73.9 Lactose intolerance, unspecified
CPT/HCPCS: 36415; 80048; 83036; 84443; 85027

== ENCOUNTER → 2019-07-10 | Outpatient (CLI) | payer MEDICARE ==
--- NOTE | 2019-07-10 13:44 | CT ---
EXAMINATION TYPE: CT chest wo con DATE OF EXAM: 07/10/2019 COMPARISON: 07/07/2018 HISTORY: ILD, SOB CT DLP: 573.3 mGycm High-resolution noncontrast CT of the chest was performed with the patient in the prone and supine po sitions. Lung and mediastinal window settings are submitted. The lungs appear to be well-aerated. Mild subpleural fibrosis at the lung bases unchanged from prior study. There is a new spiculated nodular density identified on image 19 of 36 measuring 1.3 cm right paraspinal location. Contrast-enhanced CT of the chest is recommended for further evaluation. There i s no evidence for bronchiectasis or groundglass infiltrate. No pleural effusion is identified. I do not see evidence for hilar or mediastinal mass or adenopathy. IMPRESSION: 1.. There is a new spiculated nodular density identified on image 19 of 36 measuring 1.3 cm right par aspinal location. Contrast-enhanced CT of the chest is recommended for further evaluation.
== END | disposition home or self-care (01) ==
LOC: RADCTMAIN 13:03
PROVIDERS: ATTEND Internal Medicine Critical Care Medicine
DX: J84.9 Interstitial pulmonary disease, unspecified (principal); Z88.0 Allergy status to penicillin; Z88.2 Allergy status to sulfonamides
CPT/HCPCS: 71250

== ENCOUNTER → 2019-07-21 | Outpatient (CLI) | payer MEDICARE ==
[2019-07-21 09:59] LABS: African American GFR (CKD) >90 (>60 ml/min/1.73 sqM); Blood Urea Nitrogen 11 mg/dL (7-17); Non-African American GFR(CKD) >90 (>60 ml/min/1.73 sqM)
--- NOTE | 2019-07-21 22:59 | CT ---
EXAMINATION TYPE: CT chest w con DATE OF EXAM: 07/21/2019 COMPARISON: HISTORY: Interstitial lung disease, nodule CT DLP: 617.2 mGycm, Automated exposure control for dose reduction was used. CONTRAST: Performed injected with 100 mL of Isovue 300. TECHNIQUE: Axial images were obtained at 5 mm thick sections. Reconstructed images are reviewed on [employer] computer in the coronal plane. FINDINGS: Thyroid is heterogenous. This could be further evaluated with ultrasound. No suspicious lung nodules or focal infiltrates are present. The previous densities in the as ago esophageal recess adjacent to the vertebral body spur is less pr ominent on the current examination. This remains present however measuring 0.4 cm in depth diminished from the previous 0.7 cm. No enlarged mediastinal or hilar adenopathy is evident. The ascending aorta diameter at the level o f the main pulmonary artery is 3.9 cm. The main pulmonary artery diameter at the bifurcation is 2.5 cm. Some coronary artery calcification is present. Minimal hiatal hernia may be present. Limited CT sections are obtained through the upper abdomen. Abdomen is essentially unremarkable. IMPRESSIONS: 1. Previous pleural-based density in the right mid to lower lung field has diminished in size from pr ior study. Continued monitoring is recommended.
== END | disposition home or self-care (01) ==
LOC: RADCTMAIN 09:21
PROVIDERS: ATTEND Internal Medicine Critical Care Medicine
DX: J98.4 Other disorders of lung (principal); J84.9 Interstitial pulmonary disease, unspecified; Z88.0 Allergy status to penicillin; Z88.2 Allergy status to sulfonamides
CPT/HCPCS: 82565; 84520; 71260; 36415; Q9967

== ENCOUNTER → 2019-09-21 | Outpatient (CLI) | payer MEDICARE ==
[2019-09-21 14:07] LABS: HCT 41.4 % (34.0-46.0); HGB 13.5 gm/dL (11.4-16.0); MCH 30.4 pg (25.0-35.0); MCHC 32.7 g/dL (31.0-37.0); MCV 93.2 fL (80.0-100.0); Mean Platelet Volume 7.2; Platelet Count 218 k/uL (150-450); RBC 4.44 m/uL (3.80-5.40); WBC 6.7 k/uL (3.8-10.6)
[2019-09-21 19:10] LABS: African American GFR (CKD) 107.6 (60.0-200.0); Anion Gap 7.9 mmol/L (4.00-12.00); BUN/Creat Ratio 15.71 Ratio (12.00-20.00); Calcium 9.8 mg/dL (8.7-10.3); Carbon Dioxide 32.1 mmol/L (21.6-31.8); Non-African American GFR(CKD) 92.9 (60.0-200.0); Potassium 5.2 mmol/L (3.5-5.5)
[2019-09-21 21:31] LABS: Hemoglobin A1C 5.2 % (4.0-6.0)
== END | disposition home or self-care (01) ==
LOC: LABWHC1 13:20
PROVIDERS: ATTEND Psychiatry & Neurology Psychiatry
DX: E11.9 Type 2 diabetes mellitus without complications (principal); E87.8 Other disorders of electrolyte and fluid balance, not elsewhere classified
CPT/HCPCS: 36415; 80048; 83036; 84443; 85027; 86038

== ENCOUNTER 2020-03-29 16:32 | Inpatient (IN) | payer MEDICARE ==
--- NOTE | 2020-03-29 18:05 | XR ---
EXAMINATION TYPE: XR tibia fibula LT DATE OF EXAM: 03/29/2020 COMPARISON: NONE HISTORY: Leg pain TECHNIQUE: 2 views FINDINGS: I see no fracture nor dislocation. Knee joint and ankle joint appear intact IMPRESSION: Negative left tibia and fibula exam. No fracture. No sign of osteomyelitis.
[2020-03-29] MEDS: SODIUM CHLORIDE 0.9% 500 ML 500 ML IV SCH (18:18)
[2020-03-29 19:09] LABS: Basophils # (A) 0.1 k/uL (0-0.2); Basophils % (A) 1 %; Eosinophils # (A) 0.1 k/uL (0-0.7); Eosinophils % (A) 1 %; HCT 41.7 % (34.0-46.0); HGB 13.7 gm/dL (11.4-16.0); Lymphocytes # (A) 1.7 k/uL (1.0-4.8); Lymphocytes % (A) 21 %; MCH 30.4 pg (25.0-35.0); MCHC 32.8 g/dL (31.0-37.0); MCV 92.9 fL (80.0-100.0); Mean Platelet Volume 7.2; Monocytes # (A) 0.7 k/uL (0-1.0); Monocytes % (A) 8 %; Neutrophils # (A) 5.6 k/uL (1.3-7.7); Neutrophils % (A) 67 %; Platelet Count 227 k/uL (150-450); RBC 4.49 m/uL (3.80-5.40); RDW 12.8 % (11.5-15.5); WBC 8.3 k/uL (3.8-10.6)
[2020-03-29 19:17] LABS: ALT 11 U/L (4-34); AST 29 U/L (14-36); African American GFR (CKD) >90 (>60 ml/min/1.73 sqM); Albumin 3.7 g/dL (3.5-5.0); Alkaline Phosphatase 79 U/L (38-126); Anion Gap 4 mmol/L; Blood Urea Nitrogen 7 mg/dL (7-17); C Reactive Protein 10.7 mg/L (<10.0); Calcium 9.4 mg/dL (8.4-10.2); Carbon Dioxide 31 mmol/L (22-30); Chloride 92 mmol/L (98-107); Glucose 77 mg/dL (74-99); Non-African American GFR(CKD) >90 (>60 ml/min/1.73 sqM); Potassium 4.5 mmol/L (3.5-5.1); Sodium 127 mmol/L (137-145); Total Bilirubin 0.4 mg/dL (0.2-1.3)
[2020-03-29] MEDS ORDERED: NALOXONE 0.4 MG/ML 1 ML VIAL IV PRN (19:51)
[2020-03-29] MEDS ORDERED: VANCOMYCIN IV PER PHARMACY 1 EACH MISC MISCELLANE PRN (19:53)
--- NOTE | 2020-03-29 19:58 | ED ---
General Adult HPI - General Chief complaint: Extremity Problem,Nontraumatic Stated complaint: cellulitis Time Seen by Provider: 03/29/20 17:24 Source: patient, RN notes reviewed Mode of arrival: ambulatory Limitations: no limitations - History of Present Illness Initial comments: 64-year-old female presents for infection of the left leg. Patient scraped her left leg 3 weeks ago. She was treated with antibiotics and it did improve however worsen again last week. She has been on Keflex or 5 days without improvement. In fact symptoms seem to be worsening. No fevers. Has had similar infections in the past.Patient has no other complaints at this time including shortness of breath, chest pain, abdominal pain, nausea or vomiting, headache, or visual changes. - Related Data Home Medications Medication Instructions Recorded Confirmed Divalproex [Depakote] 500 mg PO BID 12/17/13 06/01/19 Furosemide [Lasix] 20 mg PO Q48H 12/17/13 06/01/19 Gabapentin [Neurontin] 800 mg PO BID 12/17/13 06/01/19 Levothyroxine Sodium [Levoxyl] 175 mcg PO DAILY 12/17/13 06/01/19 Montelukast [Singulair] 10 mg PO HS 12/17/13 06/01/19 busPIRone HCL [Buspar] 30 mg PO BID 12/17/13 06/01/19 lamoTRIgine [LaMICtal] 100 mg PO BID 12/17/13 06/01/19 lisinopriL [Zestril] 20 mg PO DAILY 12/17/13 06/01/19 Albuterol Sulfate [Proair Hfa] 1 - 2 puff INHALATION RT-Q6H PRN 05/07/18 06/01/19 Magnesium Oxide [Mag-Ox] 400 mg PO DAILY 05/07/18 06/01/19 Triamcinolone 0.025% Cream 1 applic TOPICAL BID PRN 05/07/18 06/01/19 [Kenalog 0.025% Cream] Cyclobenzaprine [Flexeril] 10 mg PO BID 06/01/19 06/01/19 Fluticasone Propion/Salmeterol 1 puff INHALATION RT-BID 06/01/19 06/01/19 [Wixela 250-50 Inhub] PARoxetine [Paxil] 20 mg PO DAILY 06/01/19 06/01/19 Potassium Chloride ER [K-Dur 20] 20 meq PO DAILY 06/01/19 06/01/19 SILVER sulfADIAZINE Cream 1 applic TOPICAL BID 06/01/19 06/01/19 [Silvadene 1% Cream] Previous Rx's Medication Instructions Recorded Cefuroxime [Ceftin] 250 mg PO BID #14 tablet 06/05/19 Docusate [Colace] 100 mg PO DAILY PRN cap 06/05/19 Nicotine 21Mg/24Hr Patch [Habitrol] 1 patch TRANSDERM HS #28 patch 06/05/19 predniSONE 10 mg PO DAILY #40 tab 06/05/19 Allergies Allergy/AdvReac Type Severity Reaction Status Date / Time codeine Allergy Unknown Verified 03/29/20 17:12 Childhood egg Allergy Swelling Verified 03/29/20 17:12 Penicillins Allergy Rash/Hives Verified 03/29/20 17:12 Sulfa (Sulfonamide Allergy Rash/Hives Verified 03/29/20 17:12 Antibiotics) Review of Systems ROS Statement: Those systems with pertinent positive or pertinent negative responses have been documented in the HPI. ROS Other: All systems not noted in ROS Statement are negative. Past Medical History Past Medical History: Asthma, COPD, Diabetes Mellitus, Fibromyalgia, GERD/Reflux, Hypertension, Osteoarthritis (OA), Pneumonia, Pulmonary Embolus (PE), Skin Disorder, Thyroid Disorder Additional Past Medical History / Comment(s): Cervical disc disease/stenosis, scoliosis, wears back brace, recently having numbness/tingling L side of face/neck, recently saw fusion analyst for L hemidiaphragmatic elevation-pt states she was told this was probably genetic, recently bronchitis and past bronchitis, pt states recent med change (water pill) d/t electrolyte problem/kidney function being affected, pt states she has had pulmonary emboli, past bilateral lower extremity cellulitis, edema lower extremities, IBS, hemorrhoids, benign colon polyps, sinus problems, UTIs, bacteremia/sepsis, cardiac murmur, past L ankle and L wrist fractures. History of Any Multi-Drug Resistant Organisms: None Reported Past Surgical History: Adenoidectomy, Section, Cholecystectomy, Hysterectomy, Tonsillectomy Additional Past Surgical History / Comment(s): EGD, colonoscopies, gastric bypass, surgery for deviated septum Past Anesthesia/Blood Transfusion Reactions: Previous Problems w/ Anesthesia Additional Past Anesthesia/Blood Transfusion Reaction / Comment(s): itching, some kind of problem after gastric bypass-not sure what happened Past Psychological History: Anxiety, Bipolar, Depression Past Alcohol Use History: None Reported Past Drug Use History: None Reported - Past Family History Mother Family Medical History: Congestive Heart Failure (CHF), Hypertension Father Additional Family Medical History / Comment(s): Father at the age of 45 yrs d/t having had rheumatic fever as a child and heart valve disease. General Exam Limitations: no limitations General appearance: alert, in no apparent distress Head exam: Present: atraumatic, normocephalic, normal inspection Eye exam: Present: normal appearance, PERRL, EOMI. Absent: scleral icterus, conjunctival injection, periorbital swelling ENT exam: Present: normal exam, mucous membranes moist Neck exam: Present: normal inspection, full ROM. Absent: tenderness, m eningismus, lymphadenopathy Respiratory exam: Present: normal lung sounds bilaterally. Absent: respiratory distress, wheezes, rales, rhonchi, stridor Cardiovascular Exam: Present: regular rate, normal rhythm, normal heart sounds. Absent: systolic murmur, diastolic murmur, rubs, gallop, clicks Extremities exam: Present: normal capillary refill (Capillary refill less than 2 seconds, DD pulse 2+ in the left lower extremity.), other (Patient has erythema of the left lower extremity extending from the dorsum of the left foot up to just distal to the left knee. There is a wound noted in the mid tib-fib as well.) Course Vital Signs 03/29/20 03/29/20 17:08 19:07 Temperature 98.2 F 98.1 F Pulse Rate 72 69 Respiratory 18 18 Rate Blood Pressure 189/99 178/86 O2 Sat by Pulse 97 98 Oximetry Medical Decision Making - Medical Decision Making Vitals stable. CBC unremarkable. CMP does show evidence of hyponatremia. Given failure of outpatient antibiotics patient will be started on Rocephin and vancomycin. Discussed case with Kourtney from [facility]. - Lab Data Result diagrams: 03/29/20 18:07 03/29/20 18:07 Lab Results 03/29/20 03/29/20 03/29/20 Range/Units 18:07 18:07 18:07 WBC 8.3 (3.8-10.6) k/uL RBC 4.49 (3.80-5.40) m/uL Hgb 13.7 (11.4-16.0) gm/dL Hct 41.7 (34.0-46.0) % MCV 92.9 (80.0-100.0) fL MCH 30.4 (25.0-35.0) pg MCHC 32.8 (31.0-37.0) g/dL RDW 12.8 (11.5-15.5) % Plt Count 227 (150-450) k/uL Neutrophils % 67 % Lymphocytes % 21 % Monocytes % 8 % Eosinophils % 1 % Basophils % 1 % Neutrophils # 5.6 (1.3-7.7) k/uL Lymphocytes # 1.7 (1.0-4.8) k/uL Monocytes # 0.7 (0-1.0) k/uL Eosinophils # 0.1 (0-0.7) k/uL Basophils # 0.1 (0-0.2) k/uL Sodium 127 L (137-145) mmol/L Potassium 4.5 (3.5-5.1) mmol/L Chloride 92 L (98-107) mmol/L Carbon Dioxide 31 H (22-30) mmol/L Anion Gap 4 mmol/L BUN 7 (7-17) mg/dL Creatinine 0.49 L (0.52-1.04) mg/dL Est GFR (CKD-EPI)AfAm >90 (>60 ml/min/1.73 sqM) Est GFR (CKD-EPI)NonAf >90 (>60 ml/min/1.73 sqM) Glucose 77 (74-99) mg/dL Plasma Lactic Acid Joel 0.7 (0.7-2.0) mmol/L Calcium 9.4 (8.4-10.2) mg/dL Total Bilirubin 0.4 (0.2-1.3) mg/dL AST 29 (14-36) U/L ALT 11 (4-34) U/L Alkaline Phosphatase 79 (38-126) U/L C-Reactive Protein 10.7 H (<10.0) mg/L Total Protein 6.0 L (6.3-8.2) g/dL Albumin 3.7 (3.5-5.0) g/dL Disposition Clinical Impression: Cellulitis Disposition: ADMITTED IP TO THIS HOSP Is patient prescribed a controlled substance at d/c from ED?: No Referrals: Andrzej Wheeler MD [Primary Care Provider] - 1-2 days Time of Disposition: 19:58
[2020-03-29] MEDS ORDERED: VANCOMYCIN 2,000 MG in SODIUM CHLORIDE 0.9% 500 ML 500 ML IVPB STA (20:07)
[2020-03-29] MEDS: SODIUM CHLORIDE 0.9% 1,000 ML IV SCH (20:29)
[2020-03-29] MEDS ORDERED: hydrALAZINE HCL 10 MG TAB PO PRN (21:54)
[2020-03-30] MEDS ORDERED: GABAPENTIN 400 MG CAP PO PRN (02:03)
[2020-03-30] MEDS ORDERED: GABAPENTIN 400 MG CAP PO STA (02:09)
[2020-03-30] MEDS ORDERED: CYCLOBENZAPRINE 10 MG TAB PO STA (02:11)
[2020-03-30] MEDS: busPIRone HCl 10 MG TAB PO SCH ×3 (02:22→20:17)
[2020-03-30] MEDS: CYCLOBENZAPRINE 10 MG TAB PO SCH ×2 (07:51→20:17)
[2020-03-30] MEDS: VANCOMYCIN 1,750 MG in SODIUM CHLORIDE 0.9% 500 ML 500 ML IVPB SCH ×2 (07:53→20:16)
[2020-03-30] MEDS ORDERED: cefTRIAXone IN SWFI 1,000 MG/10 ML SYRINGE IVP SCH (09:00)
[2020-03-30] MEDS ORDERED: busPIRone HCl 10 MG TAB PO SCH (09:00)
[2020-03-30] MEDS ORDERED: ALBUTEROL NEBULIZED 2.5 MG/3 ML INHALATION PRN (10:54)
[2020-03-30] MEDS ORDERED: MUPIROCIN 2% OINT 22 GM TUBE TOPICAL PRN (10:54)
[2020-03-30] MEDS ORDERED: KETOROLAC 15 MG/ML 1 ML VIAL IVP PRN (10:57)
--- NOTE | 2020-03-30 12:38 | P.HPIM ---
History of Present Illness 64-year-old female presents for infection of the left leg. Patient scraped her left leg 3 weeks ago. She was treated with antibiotics and it did improve however worsen again last week. She has been on Keflex or 5 days without impr ovement. In fact symptoms seem to be worsening. No fevers. Has had similar infections in the past.Patient has no other complaints at this time including shortness of breath, chest pain, abdominal pain, nausea or vomiting, headache, or visual changes. Patient denied any history of MRSA in the past although patient was treated facilities in the past with IV antibiotics. Patient does have significant redness in the left lower leg with skin breakdown although no purulent discharge. Review of Systems REVIEW OF SYSTEMS: CONSTITUTIONAL: No fever, no malaise, no fatigue. HEENT: No recent visual problems or hearing problems. Denied any sore throat. CARDIOVASCULAR: No chest pain, orthopnea, PND, no palpitations, no syncope. PULMONARY: No shortness of breath, no cough, no hemoptysis. GASTROINTESTINAL: No diarrhea, no nausea, no vomiting, no abdominal pain. NEUROLOGICAL: No headaches, no weakness, no numbness. HEMATOLOGICAL: Denies any bleeding or petechiae. GENITOURINARY: Denies any burning micturition, frequency, or urgency. MUSCULOSKELETAL/RHEUMATOLOGICAL: Denies any joint pain, swelling, or any muscle pain. ENDOCRINE: Denies any polyuria or polydipsia. The rest of the 14-point review of systems is negative. 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 History of Any Multi-Drug Resistant Organisms: None Reported Past Surgical History: Adenoidectomy, Section, Cholecystectomy, Hysterectomy, Tonsillectomy Additional Past Surgical History / Comment(s): EGD, colonoscopies, gastric bypass, surgery for deviated septum Past Anesthesia/Blood Transfusion Reactions: Previous Problems w/ Anesthesia Additional Past Anesthesia/Blood Transfusion Reaction / Comment(s): itching, some kind of problem after gastric bypass-not sure what happened Past Psychological History: Anxiety, Bipolar, Depression Additional Psychological History / Comment(s): Pt resides with her spouse. They have a cat. She states her depression is not an issue. She states her anxiety and panic attacks are severe. She wears a back brace when up. She drives. Smoking Status: Current every day smoker Past Alcohol Use History: None Reported Additional Past Alcohol Use History / Comment(s): Pt states she has no idea at what age she began smoking. She states she has quit many times over the years but is currently smoking. Past Drug Use History: None Reported - Past Family History Mother Family Medical History: Congestive Heart Failure (CHF), Hypertension Father Additional Family Medical History / Comment(s): Father at the age of 45 yrs d/t having had rheumatic fever as a child and heart valve disease. Medications and Allergies Home Medications Medication Instructions Recorded Confirmed Type Divalproex [Depakote] 500 mg PO TID 12/17/13 03/29/20 History Gabapentin [Neurontin] 800 mg PO TID PRN 12/17/13 03/29/20 History Montelukast [Singulair] 10 mg PO HS 12/17/13 03/29/20 History busPIRone HCL [Buspar] 30 mg PO BID 12/17/13 03/29/20 History lamoTRIgine [LaMICtal] 100 mg PO BID 12/17/13 03/29/20 History lisinopriL [Zestril] 20 mg PO DAILY 12/17/13 03/29/20 History Albuterol Sulfate [Proair Hfa] 1 - 2 puff INHALATION RT-Q6H PRN 05/07/1803/19 History Cyclobenzaprine [Flexeril] 10 mg PO BID 06/01/19 03/29/20 History Fluticasone Propion/Salmeterol 1 puff INHALATION RT-BID 06/01/19 03/29/20 History [Wixela 250-50 Inhub] PARoxetine [Paxil] 20 mg PO DAILY 06/01/19 03/29/20 History Cephalexin [Keflex] 500 mg PO Q6H 03/29/20 03/29/20 History Cetirizine HCl 10 mg PO QAM 03/29/20 03/29/20 History Levothyroxine Sodium [Synthroid] 150 mcg PO QAM 03/29/20 03/29/20 History Mupirocin 2% Oint [Bactroban 2% 1 applic TOPICAL TID PRN 03/29/20 03/29/20 History Oint] Allergies Allergy/AdvReac Type Severity Reaction Status Date / Time codeine Allergy Unknown Verified 03/29/20 22:13 Childhood egg Allergy Swelling Verified 03/29/20 22:13 Penicillins Allergy Rash/Hives Verified 03/29/20 22:13 Sulfa (Sulfonamide Allergy Rash/Hives Verified 03/29/20 22:13 Antibiotics) Physical Exam Vitals: Vital Signs Temp Pulse Pulse Resp BP BP Pulse Ox 03/30/20 07:51 67 18 03/30/20 07:00 98.1 F 76 18 156/77 92 L 03/30/20 02:49 97.6 F 67 18 181/80 92 L 03/29/20 23:24 71 19 03/29/20 20:56 98.0 F 71 19 195/85 93 L 03/29/20 20:34 98.2 F 71 19 174/87 94 L 03/29/20 19:07 98.1 F 69 18 178/86 98 03/29/20 17:08 98.2 F 72 18 189/99 97 Intake and Output 03/29/20 03/30/20 03/30/20 22:59 06:59 14:59 Intake Total 700 Balance 700 Intake: Intake, IV Titration 500 Amount Vancomycin 2,000 mg In 500 Sodium Chloride 0.9% 500 ml 500 ml @ 167 mls/hr IVPB ONCE STA Rx#: [id number] Oral 200 Other: Voiding Method Toilet Toilet # Voids 2 2 1 Weight 102.058 kg PHYSICAL EXAMINATION: GENERAL: The patient is alert and oriented x3, not in any acute distress. Well developed, well nourished. HEENT: Pupils are round and equally reacting to light. EOMI. No scleral icterus. No conjunctival pallor. Normocephalic, atraumatic. No pharyngeal erythema. No thyromegaly. CARDIOVASCULAR: S1 and S2 present. No murmurs, rubs, or gallops. PULMONARY: Chest is clear to auscultation, no wheezing or crackles. ABDOMEN: Soft, nontender, nondistended, normoactive bowel sounds. No palpable organomegaly. MUSCULOSKELETAL: No joint swelling or deformity. EXTREMITIES: No cyanosis, clubbing, or pedal edema. NEUROLOGICAL: Gross neurological examination did not reveal any focal deficits. SKIN: Redness in the left lower extremity with local is of temperature does have cellulitis. No lymphadenopathy Results CBC & Chem 7: 03/29/20 18:07 03/29/20 18:07 Labs: Abnormal Lab Results - Last 24 Hours (Table) 03/29/20 Range/Units 18:07 Sodium 127 L (137-145) mmol/L Chloride 92 L (98-107) mmol/L Carbon Dioxide 31 H (22-30) mmol/L Creatinine 0.49 L (0.52-1.04) mg/dL C-Reactive Protein 10.7 H (<10.0) mg/L Total Protein 6.0 L (6.3-8.2) g/dL Microbiology - Last 24 Hours (Table) 03/29/20 18:07 Gram Stain - Preliminary Leg - Left Wound Culture - Preliminary Thrombosis Risk Factor Assmnt - Choose All That Apply Each Risk Factor Represents 2 Points: Age 61-74 years Thrombosis Risk Factor Assessment Total Risk Factor Score: 2 Thrombosis Risk Factor Assessment Level: Low Risk Assessment and Plan Plan: Cellulitis of the left lower extremity: Failed outpatient therapy continued vancomycin. Patient denied any MRSA history but failed outpatient. Because of which will continue vancomycin today. Infectious disease was consulted. -Hyponatremia possibly hypovolemic hyponatremia patient was started on IV fluids. Will repeat basic metabolic profile tomorrow -COPD without any acute exacerbation extent-type 2 diabetes mellitus -Fibromyalgia -Gastric reflux disease Hypertension -History of PE in the past -Hypothyroidism -chronic low back pain -Due to prophylaxis with Lovenox
[2020-03-30] MEDS: DIVALPROEX 500 MG TABLET.DR PO SCH ×2 (15:37→20:18)
[2020-03-30] MEDS: SODIUM CHLORIDE 0.9% 1,000 ML IV SCH (15:38)
[2020-03-30] MEDS: lamoTRIgine 100 MG TAB PO SCH (20:17)
[2020-03-30] MEDS: FAMOTIDINE 20 MG TAB PO SCH (20:17)
[2020-03-30] MEDS: MONTELUKAST 10 MG TAB PO SCH (20:18)
[2020-03-30] MEDS: SYMBICORT 80-4.5 MCG INHALER INHALATION SCH (20:48)
[2020-03-30] MEDS ORDERED: MELATONIN 5 MG TABLET PO PRN (22:04)
[2020-03-31] MEDS: LEVOTHYROXINE 75 MCG TAB PO SCH (06:01)
[2020-03-31] MEDS: SODIUM CHLORIDE 0.9% 1,000 ML IV SCH (07:10)
[2020-03-31 07:31] LABS: African American GFR (CKD) >90 (>60 ml/min/1.73 sqM); Non-African American GFR(CKD) >90 (>60 ml/min/1.73 sqM)
[2020-03-31] MEDS: CYCLOBENZAPRINE 10 MG TAB PO SCH ×2 (07:35→20:40)
[2020-03-31] MEDS: lisinopriL 20 MG TAB PO SCH (07:35)
[2020-03-31] MEDS: DIVALPROEX 500 MG TABLET.DR PO SCH ×3 (07:35→20:40)
[2020-03-31] MEDS: FAMOTIDINE 20 MG TAB PO SCH ×2 (07:35→20:40)
[2020-03-31] MEDS: ENOXAPARIN 40 MG/0.4 ML SYRINGE SQ SCH (07:35)
[2020-03-31] MEDS: busPIRone HCl 10 MG TAB PO SCH ×2 (07:35→20:40)
[2020-03-31] MEDS: PARoxetine 20 MG TAB PO SCH (07:36)
[2020-03-31] MEDS: lamoTRIgine 100 MG TAB PO SCH ×2 (07:36→20:40)
[2020-03-31] MEDS: LORATADINE 10 MG TAB PO SCH (07:36)
[2020-03-31] MEDS: VANCOMYCIN 1,750 MG in SODIUM CHLORIDE 0.9% 500 ML 500 ML IVPB SCH (07:40)
[2020-03-31] MEDS: SYMBICORT 80-4.5 MCG INHALER INHALATION SCH ×2 (08:54→20:47)
[2020-03-31 08:56] LABS: Anion Gap 4 mmol/L; Blood Urea Nitrogen 6 mg/dL (7-17); Calcium 9.1 mg/dL (8.4-10.2); Carbon Dioxide 31 mmol/L (22-30); Chloride 101 mmol/L (98-107); Glucose 73 mg/dL (74-99); Potassium 4.2 mmol/L (3.5-5.1); Sodium 136 mmol/L (137-145)
--- NOTE | 2020-03-31 09:24 | P.CONS ---
History of Present Illness - Reason for Consult Consult date: 03/30/20 Left lower extremity cellulitis Requesting physician: Megan Esparza - Chief Complaint Left leg pain swelling and redness x days - History of Present Illness Patient is a 64-year-old female presenting to the ER for evaluation of left lower extremity pain swelling and redness apparently the patient's Her left leg about 3 weeks ago with resultant laceration and subsequently developing swelling and redness along with his patient apparently has been treated with ora l Keflex with the patient's taken for more than 5 days however the patient noticed to have progressive worsening of her swelling and redness to the left leg patient had been complaining of dull aching pain to the left leg and this is about 4 out of 10 and no radiation patient denies having any significant purulent drainage from that area of laceration denies high-grade fever however did have some chills the patient was evaluated by the ER physician on arrival to the ER the patient was afebrile patient white count was normal she did have x- rays of the left leg which was negative for any bony changes patient was started on vancomycin and admitted to the hospital infectious disease was consulted for further management of antibiotic therapy Review of Systems Positive point has been mentioned in the HPI rest of the systems are negative Past Medical History Past Medical History: Asthma, COPD, Diabetes Mellitus, Fibromyalgia, GERD/Reflux, Hypertension, Osteoarthritis (OA), Pneumonia, Pulmonary Embolus (PE), Skin Disorder, Thyroid Disorder Additional Past Medical History / Comment(s): Cervical disc disease/stenosis, scoliosis, wears back brace, recently having numbness/tingling L side of face/n yessenia, recently saw jewel gauger for L hemidiaphragmatic elevation-pt states she was told this was probably genetic, recently bronchitis and past bronchitis, pt states recent med change (water pill) d/t electrolyte problem/kidney function being affected, pt states she has had pulmonary emboli, past bilateral lower extremity cellulitis, edema lower extremities, IBS, hemorrhoids, benign colon polyps, sinus problems, UTIs, bacteremia/sepsis, cardiac murmur, past L ankle and L wrist fractures. History of Any Multi-Drug Resistant Organisms: None Reported Past Surgical History: Adenoidectomy, Section, Cholecystectomy, Hysterectomy, Tonsillectomy Additional Past Surgical History / Comment(s): EGD, colonoscopies, gastric bypass, surgery for deviated septum Past Anesthesia/Blood Transfusion Reactions: Previous Problems w/ Anesthesia Additional Past Anesthesia/Blood Transfusion Reaction / Comm: itching, some kind of problem after gastric bypass-not sure what happened Past Psychological History: Anxiety, Bipolar, Depression Additional Psychological History / Comment(s): Pt resides with her spouse. They have a cat. She states her depression is not an issue. She states her anxiety and panic attacks are severe. She wears a back brace when up. She drives. Smoking Status: Current every day smoker Past Alcohol Use History: None Reported Additional Past Alcohol Use History / Comment(s): Pt states she has no idea at what age she began smoking. She states she has quit many times over the years but is currently smoking. Past Drug Use History: None Reported - Past Family History Mother Family Medical History: Congestive Heart Failure (CHF), Hypertension Father Additional Family Medical History / Comment(s): Father at the age of 45 yrs d/t having had rheumatic fever as a child and heart valve disease. Medications and Allergies Home Medications Medication Instructions Recorded Confirmed Type Divalproex [Depakote] 500 mg PO TID 12/17/13 03/29/20 History Gabapentin [Neurontin] 800 mg PO TID PRN 12/17/13 03/29/20 History Montelukast [Singulair] 10 mg PO HS 12/17/13 03/29/20 History busPIRone HCL [Buspar] 30 mg PO BID 12/17/13 03/29/20 History lamoTRIgine [LaMICtal] 100 mg PO BID 12/17/13 03/29/20 History lisinopriL [Zestril] 20 mg PO DAILY 12/17/13 03/29/20 History Albuterol Sulfate [Proair Hfa] 1 - 2 puff INHALATION RT-Q6H PRN 05/07/1803/29 History Cyclobenzaprine [Flexeril] 10 mg PO BID 06/01/19 03/29/20 History Fluticasone Propion/Salmeterol 1 puff INHALATION RT-BID 06/01/19 03/29/20 History [Wixela 250-50 Inhub] PARoxetine [Paxil] 20 mg PO DAILY 06/01/19 03/29/20 History Cephalexin [Keflex] 500 mg PO Q6H 03/29/20 03/29/20 History Cetirizine HCl 10 mg PO QAM 03/29/20 03/29/20 History Levothyroxine Sodium [Synthroid] 150 mcg PO QAM 03/29/20 03/29/20 History Mupirocin 2% Oint [Bactroban 2% 1 applic TOPICAL TID PRN 03/29/20 03/29/20 History Oint] Allergies Allergy/AdvReac Type Severity Reaction Status Date / Time codeine Allergy Unknown Verified 03/29/20 22:13 Childhood egg Allergy Swelling Verified 03/29/20 22:13 Penicillins Allergy Rash/Hives Verified 03/29/20 22:13 Sulfa (Sulfonamide Allergy Rash/Hives Verified 03/29/20 22:13 Antibiotics) Physical Exam Vitals: Vital Signs Temp Pulse Pulse Resp BP BP Pulse Ox 03/30/20 07:51 67 18 03/30/20 07:00 98.1 F 76 18 156/77 92 L 03/30/20 02:49 97.6 F 67 18 181/80 92 L 03/29/20 23:24 71 19 03/29/20 20:56 98.0 F 71 19 195/85 93 L 03/29/20 20:34 98.2 F 71 19 174/87 94 L 03/29/20 19:07 98.1 F 69 18 178/86 98 03/29/20 17:08 98.2 F 72 18 189/99 97 Intake and Output 03/29/20 03/30/20 03/30/20 22:59 06:59 14:59 Intake Total 700 Balance 700 Intake: Intake, IV Titration 500 Amount Vancomycin 2,000 mg In 500 Sodium Chloride 0.9% 500 ml 500 ml @ 167 mls/hr IVPB ONCE STA Rx#: [id number] Oral 200 Other: Voiding Method Toilet Toilet # Voids 2 2 1 Weight 102.058 kg GENERAL DESCRIPTION: Middle-aged female lying in bed, no distress. No tachypnea or accessory muscle of respiration use. HEENT: Shows Pallor , no scleral icterus. Oral mucous membrane is dry. No pharyngeal erythema or thrush NECK: Trachea central, no thyromegaly. LUNGS: Unlabored breathing. Clear to auscultation anteriorly. No wheeze or crackle. HEART: S1, S2, regular rate and rhythm. No loud murmur ABDOMEN: Soft, no tenderness , guarding or rigidity, no organomegaly EXTREMITIES: Left leg did have a superficial ulceration at the chin, with surrounding swelling redness or warmth and tender to touch SKIN: No rash, no masses palpable. NEUROLOGICAL: The patient is awake, alert, oriented x3, mood and affect normal. Results CBC & Chem 7: 03/29/20 18:07 03/31/20 06:35 Labs: Abnormal Lab Results - Last 24 Hours (Table) 03/29/20 Range/Units 18:07 Sodium 127 L (137-145) mmol/L Chloride 92 L (98-107) mmol/L Carbon Dioxide 31 H (22-30) mmol/L Creatinine 0.49 L (0.52-1.04) mg/dL C-Reactive Protein 10.7 H (<10.0) mg/L Total Protein 6.0 L (6.3-8.2) g/dL Microbiology - Last 24 Hours (Table) 03/29/20 18:07 Gram Stain - Preliminary Leg - Left Wound Culture - Preliminary Assessment and Plan Assessment: 1-patient with acute left lower simply cellulitis started with the scratch to the left leg that seemed to have not responded very well to the oral Keflex with concern for possible community associated MRSA to the likely pathogen 2-Patient with multiple antibiotic ALLERGIES that would limit the number of antibiotic safe to use (1) Left leg cellulitis Current Visit: Yes Status: Acute Code(s): L03.116 - CELLULITIS OF LEFT LOWER LIMB SNOMED Code(s): 045850467 (2) Allergy to multiple antibiotics Current Visit: Yes Status: Acute Code(s): Z88.1 - ALLERGY STATUS TO OTHER ANTIBIOTIC AGENTS STATUS SNOMED Code(s): 596696785 Plan: 1-marked the area of the redness 2-Vancomycin pharmacy to dose target trough of 15 while watching kidney function and Vanco trough closely We will follow on clinical condition and cultures to further adjust medication if needed Thank you for this consultation will follow this patient with you Time with Patient: Greater than 30
--- NOTE | 2020-03-31 09:38 | P.PN ---
Subjective This is admitted facilities of the left leg failed outpatient therapy and Keflex. Patient won't cultures are showing gram-negative bacilli cefepime was added we need to wait for the cultures and studies to come back. that is being can urine vancomycin infectious disease is following the patient. Have redness although C. difficile improved. Constitutional: Denied any fatigue denied any fever. Cardio vascular: denied any chest pain, palpitations Gastrointestinal denied any nausea vomiting Pulmonary: Denied any shortness of breath cough Neurologic denied any new focal deficits All inpatient medications were reviewed and appropriate changes in these medications as dictated in the interval history and assessment and plan. Objective - Vital Signs Vital signs: Vital Signs Temp 98.6 F 03/31/20 07:00 Pulse 76 03/31/20 07:00 Resp 19 03/31/20 07:00 BP 158/93 03/31/20 07:00 Pulse Ox 93 L 03/31/20 07:00 Intake & Output 03/30/20 03/31/20 03/31/20 18:59 06:59 18:59 Intake Total 850 800 Balance 850 800 Intake: Intake, IV Titration 850 800 Amount Sodium Chloride 0.9% 1, 300 800 000 ml @ 100 mls/hr IV . Q10H JEIMY Rx#:[id number] Vancomycin 1,750 mg In 500 Sodium Chloride 0.9% 500 ml 500 ml @ 167 mls/hr IVPB Q12H JEIMY Rx#: [id number] cefTRIAXone 1 gm In 50 Sodium Chloride 0.9% 50 ml @ 100 mls/hr IVPB Q24HR JEIMY Rx#:[id number] Other: Voiding Method Toilet Toilet # Voids 1 2 - Exam PHYSICAL EXAMINATION: GENERAL: The patient is alert and oriented x3, not in any acute distress. Well developed, well nourished. HEENT: Pupils are round and equally reacting to light. EOMI. No scleral icterus. No conjunctival pallor. Normocephalic, atraumatic. No pharyngeal erythema. No thyromegaly. CARDIOVASCULAR: S1 and S2 present. No murmurs, rubs, or gallops. PULMONARY: Chest is clear to auscultation, no wheezing or crackles. ABDOMEN: Soft, nontender, nondistended, normoactive bowel sounds. No palpable organomegaly. MUSCULOSKELETAL: No joint swelling or deformity. EXTREMITIES: No cyanosis, clubbing, or pedal edema. NEUROLOGICAL: Gross neurological examination did not reveal any focal deficits. SKIN: Redness in the left lower extremity with local is of temperature does have cellulitis , redness significantly improved. No lymphadenopathy - Labs CBC & Chem 7: 03/29/20 18:07 03/31/20 06:35 Labs: Abnormal Lab Results - Last 24 Hours (Table) 03/31/20 Range/Units 06:35 Sodium 136 L (137-145) mmol/L Carbon Dioxide 31 H (22-30) mmol/L BUN 6 L (7-17) mg/dL Creatinine 0.46 L (0.52-1.04) mg/dL Glucose 73 L (74-99) mg/dL Microbiology - Last 24 Hours (Table) 03/29/20 18:57 Blood Culture - Preliminary Blood No Growth after 24 hours 03/29/20 18:07 Gram Stain - Preliminary Leg - Left Wound Culture - Preliminary Gram Neg Bacilli Assessment and Plan Plan: Cellulitis of the left lower extremity: Failed outpatient therapy, gram-negative bacilli on the cultures patient was started on cefepime continued on vancomycin awaiting finalization of the cultures -Hyponatremia possibly hypovolemic hyponatremia proved with IV fluids, IV fluids will be discontinued -COPD without any acute exacerbation -type 2 diabetes mellitus -Fibromyalgia -Gastric reflux disease Hypertension -History of PE in the past -Hypothyroidism -chronic low back pain -Due to prophylaxis with Lovenox
[2020-03-31] MEDS: CEFEPIME 2 GM in SODIUM CHLORIDE 0.9% 100 ML IVPB SCH ×3 (09:50→23:00)
[2020-03-31] MEDS: ACETAMINOPHEN TAB 325 MG TAB PO PRN (19:02)
[2020-03-31] MEDS: MONTELUKAST 10 MG TAB PO SCH (20:40)
[2020-04-01] MEDS: LEVOTHYROXINE 75 MCG TAB PO SCH (04:31)
[2020-04-01] MEDS: ACETAMINOPHEN TAB 325 MG TAB PO PRN (04:32)
[2020-04-01 06:51] LABS: Glucose,Whole Blood 83 mg/dL (75-99)
[2020-04-01] MEDS ORDERED: VANCOMYCIN TROUGH DUE 1 EACH MISC MISCELLANE ONE (07:00)
[2020-04-01] MEDS: DIVALPROEX 500 MG TABLET.DR PO SCH (07:35)
[2020-04-01] MEDS: PARoxetine 20 MG TAB PO SCH (07:35)
[2020-04-01] MEDS: FAMOTIDINE 20 MG TAB PO SCH (07:35)
[2020-04-01] MEDS: lamoTRIgine 100 MG TAB PO SCH (07:35)
[2020-04-01] MEDS: LORATADINE 10 MG TAB PO SCH (07:35)
[2020-04-01] MEDS: ENOXAPARIN 40 MG/0.4 ML SYRINGE SQ SCH (07:35)
[2020-04-01] MEDS: CYCLOBENZAPRINE 10 MG TAB PO SCH (07:36)
[2020-04-01] MEDS: busPIRone HCl 10 MG TAB PO SCH (07:36)
[2020-04-01] MEDS: CEFEPIME 2 GM in SODIUM CHLORIDE 0.9% 100 ML IVPB SCH (07:36)
[2020-04-01] MEDS: lisinopriL 20 MG TAB PO SCH (07:36)
[2020-04-01 07:55] VITALS: BP 189/101; PULSE 73; RESP 20; TEMP 98.1
[2020-04-01 08:20] LABS: HCT 39.5 % (34.0-46.0); HGB 12.9 gm/dL (11.4-16.0); MCH 30.8 pg (25.0-35.0); MCHC 32.8 g/dL (31.0-37.0); MCV 93.8 fL (80.0-100.0); Platelet Count 211 k/uL (150-450); RBC 4.21 m/uL (3.80-5.40); RDW 12.8 % (11.5-15.5); WBC 5.8 k/uL (3.8-10.6)
[2020-04-01 08:31] LABS: African American GFR (CKD) >90 (>60 ml/min/1.73 sqM); Anion Gap 2 mmol/L; Blood Urea Nitrogen 7 mg/dL (7-17); Carbon Dioxide 32 mmol/L (22-30); Chloride 99 mmol/L (98-107); Glucose 72 mg/dL (74-99); Non-African American GFR(CKD) >90 (>60 ml/min/1.73 sqM); Potassium 4.2 mmol/L (3.5-5.1); Sodium 133 mmol/L (137-145)
[2020-04-01] MEDS: SYMBICORT 80-4.5 MCG INHALER INHALATION SCH (09:28)
--- NOTE | 2020-04-01 12:26 | PN ---
PROGRESS NOTE DATE OF SERVICE: 03/31/2020 REASON FOR FOLLOWUP: Left lower extremity cellulitis. INTERVAL HISTORY: The patient is currently afebrile. The patient is breathing comfortably. Patient denies having any chest pain, no shortness of breath, no cough, no nausea, no abdominal pain. Left leg swelling is slightly decreased. PHYSICAL EXAMINATION: Blood pressure 158/93 with a pulse of 73, temperature 98.6. She is 93% on room air. General description is a middle-aged female, up in the chair in no distress. RESPIRATORY SYSTEM: Unlabored breathing, clear to auscultation anteriorly. HEART: S1, S2. Regular rate and rhythm ABDOMEN: Soft, no tenderness. Left leg swelling is slightly decreased. LABS: BUN 6, creatinine 0.46. Wound culture now showing Gram-negative bacilli. Blood culture has been negative. DIAGNOSTIC IMPRESSION AND PLAN: Patient with acute left lower extremity cellulitis, failing outpatient oral Keflex, was started on the vancomycin; however, local culture now showing a Gram-negative. Cefepime has been added. Will discontinue the vancomycin and follow up on the cultures. Continue supportive care. MMODL / IJN: [id number] /
--- NOTE | 2020-04-01 13:06 | P.DS ---
Providers Date of admission: 03/31/20 09:31 Attending physician: Megan Esparza Consults: 03/30/20 10:56 Consult Physician Routine Consulting Provider: Briseida Mcdonald Consult Reason/Comments: Cellulitis Do you want consulting provider notified?: Yes Primary care physician: Andrzej Wheeler [facility] Course: This is admitted facilities of the left leg failed outpatient therapy and Keflex. Patient won't cultures are showing gram-negative bacilli cefepime was added we need to wait for the cultures and studies to come back. that is being can urine vancomycin infectious disease is following the patient. Have redness although cellulitis improved. 04/01/2020 Patient's alertness did improve patient has a Pseudomonas from the wound cultures patient will be discharged on Cipro 750 twice a day follow-up with the PCP and ID as an outpatient PHYSICAL EXAMINATION: GENERAL: The patient is alert and oriented x3, not in any acute distress. Well developed, well nourished. HEENT: Pupils are round and equally reacting to light. EOMI. No scleral icterus. No conjunctival pallor. Normocephalic, atraumatic. No pharyngeal erythema. No thyromegaly. CARDIOVASCULAR: S1 and S2 present. No murmurs, rubs, or gallops. PULMONARY: Chest is clear to auscultation, no wheezing or crackles. ABDOMEN: Soft, nontender, nondistended, normoactive bowel sounds. No palpable organomegaly. MUSCULOSKELETAL: No joint swelling or deformity. EXTREMITIES: No cyanosis, clubbing, or pedal edema. NEUROLOGICAL: Gross neurological examination did not reveal any focal deficits. SKIN: Redness in the left lower extremity with local is of temperature does have cellulitis , redness significantly improved. No lymphadenopathy Assessment and Plan Plan: Cellulitis of the left lower extremity: Failed outpatient therapy, Pseudomonas on the cultures patient will be discharged on ciprofloxacin 750 twice a day. -Hyponatremia possibly hypovolemic hyponatremia improved with the IV fluids -COPD without any acute exacerbation -type 2 diabetes mellitus -Fibromyalgia -Gastric reflux disease Hypertension -History of PE in the past -Hypothyroidism -chronic low back pain Plan - Discharge Summary Discharge Rx Participant: No New Discharge Prescriptions: New amLODIPine [Norvasc] 5 mg PO DAILY #30 tab Ciprofloxacin HCl [Cipro] 750 mg PO BID #14 tablet Continue Divalproex [Depakote] 500 mg PO TID lisinopriL [Zestril] 20 mg PO DAILY lamoTRIgine [LaMICtal] 100 mg PO BID busPIRone HCL [Buspar] 30 mg PO BID Montelukast [Singulair] 10 mg PO HS Gabapentin [Neurontin] 800 mg PO TID PRN PRN Reason: Pain Albuterol Sulfate [Proair Hfa] 1 - 2 puff INHALATION RT-Q6H PRN PRN Reason: Shortness Of Breath PARoxetine [Paxil] 20 mg PO DAILY Cyclobenzaprine [Flexeril] 10 mg PO BID Fluticasone Propion/Salmeterol [Wixela 250-50 Inhub] 1 puff INHALATION RT-BID Levothyroxine Sodium [Synthroid] 150 mcg PO QAM Cetirizine HCl 10 mg PO QAM Mupirocin 2% Oint [Bactroban 2% Oint] 1 applic TOPICAL TID PRN PRN Reason: infection Discontinued Cephalexin [Keflex] 500 mg PO Q6H Discharge Medication List Divalproex [Depakote] 500 mg PO TID 12/17/13 [History] Gabapentin [Neurontin] 800 mg PO TID PRN 12/17/13 [History] Montelukast [Singulair] 10 mg PO HS 12/17/13 [History] busPIRone HCL [Buspar] 30 mg PO BID 12/17/13 [History] lamoTRIgine [LaMICtal] 100 mg PO BID 12/17/13 [History] lisinopriL [Zestril] 20 mg PO DAILY 12/17/13 [History] Albuterol Sulfate [Proair Hfa] 1 - 2 puff INHALATION RT-Q6H PRN 05/07/18 [History] Cyclobenzaprine [Flexeril] 10 mg PO BID 06/01/19 [History] Fluticasone Propion/Salmeterol [Wixela 250-50 Inhub] 1 puff INHALATION RT-BID 06/01/19 [History] PARoxetine [Paxil] 20 mg PO DAILY 06/01/19 [History] Cetirizine HCl 10 mg PO QAM 03/29/20 [History] Levothyroxine Sodium [Synthroid] 150 mcg PO QAM 03/29/20 [History] Mupirocin 2% Oint [Bactroban 2% Oint] 1 applic TOPICAL TID PRN 03/29/20 [History] Ciprofloxacin HCl [Cipro] 750 mg PO BID #14 tablet 04/01/20 [Rx] amLODIPine [Norvasc] 5 mg PO DAILY #30 tab 04/01/20 [Rx] Follow up Appointment(s)/Referral(s): Andrzej Wheeler MD [Primary Care Provider] - 04/04/20 11:30 am Patient Instructions/Handouts: Cellulitis (DC) Activity/Diet/Wound Care/Special Instructions: Follow-up with Dr. Mcdonald and the wound care center 1 week, call [phone] at 0930 on Apr 10 located at [facility] Discharge Disposition: HOME SELF-CARE
--- NOTE | 2020-04-01 13:11 | PN ---
PROGRESS NOTE DATE OF SERVICE: 04/01/2020 REASON FOR FOLLOWUP: Left lower extremity wound cellulitis. INTERVAL HISTORY: Patient is currently afebrile. Patient is feeling better. Breathing comfortably. Denies having any chest pain. No shortness of breath or cough. No abdominal swelling and redness increased. PHYSICAL EXAMINATION: Blood pressure 111/100 with a pulse of 70, temperature is 97.5, pulse of 73, temperature 98.1, she is 94% on room air. General description is a middle-aged female, lying in bed in no distress. RESPIRATORY SYSTEM: Unlabored breathing, clear to auscultation anteriorly. HEART: S1, S2. Regular rate and rhythm. ABDOMEN: Soft. No tenderness. Left leg swelling has decreased. LABS: Hemoglobin is 12.8, white count 5.8 BUN of 7, creatinine 0.50. Local wound culture with Pseudomonas aeruginosa. DIAGNOSTIC IMPRESSION AND PLAN: Patient with left lower extremity wound and cellulitis. Culture with Pseudomonas aeruginosa, improved on cefepime. Plan is to finish therapy with oral Cipro and follow with the Wound Care Center next week for continued local wound care. MMODL / IJN: [id number] /
== END 2020-04-01 12:17 | disposition home or self-care (01) | DRG 603 ==
LOC: EC 16:32 → 4SSUR 19:31 → OBSVTOIN 03-31 09:31
PROVIDERS: ADMIT Hospitalist; ATTEND Hospitalist
DX: L03.116 Cellulitis of left lower limb (principal); E87.1 Hypo-osmolality and hyponatremia; E11.9 Type 2 diabetes mellitus without complications; S81.812A Laceration without foreign body, left lower leg, initial encounter; B96.5 Pseudomonas (aeruginosa) (mallei) (pseudomallei) as the cause of diseases classified elsewhere; E03.9 Hypothyroidism, unspecified; F31.9 Bipolar disorder, unspecified; J44.9 Chronic obstructive pulmonary disease, unspecified; E86.1 Hypovolemia; F41.0 Panic disorder [episodic paroxysmal anxiety]; M79.7 Fibromyalgia; K21.9 Gastro-esophageal reflux disease without esophagitis; I10 Essential (primary) hypertension; K58.9 Irritable bowel syndrome, unspecified; K64.9 Unspecified hemorrhoids; M50.90 Cervical disc disorder, unspecified, unspecified cervical region; M48.02 Spinal stenosis, cervical region; M41.9 Scoliosis, unspecified; G89.29 Other chronic pain; M54.5 Low back pain; M19.90 Unspecified osteoarthritis, unspecified site; F17.210 Nicotine dependence, cigarettes, uncomplicated; Z71.6 Tobacco abuse counseling; Z79.890 Hormone replacement therapy; Z79.51 Long term (current) use of inhaled steroids; Z79.899 Other long term (current) drug therapy; Z90.49 Acquired absence of other specified parts of digestive tract; Z87.01 Personal history of pneumonia (recurrent); Z86.711 Personal history of pulmonary embolism; Z86.010 Personal history of colon polyps; Z87.440 Personal history of urinary (tract) infections; Z86.19 Personal history of other infectious and parasitic diseases; Z87.81 Personal history of (healed) traumatic fracture; Z90.710 Acquired absence of both cervix and uterus; Z98.891 History of uterine scar from previous surgery; Z90.89 Acquired absence of other organs; Z98.84 Bariatric surgery status; Z87.42 Personal history of other diseases of the female genital tract; Z87.09 Personal history of other diseases of the respiratory system; Z88.5 Allergy status to narcotic agent; Z88.0 Allergy status to penicillin; Z88.2 Allergy status to sulfonamides; Z91.012 Allergy to eggs; Z82.49 Family history of ischemic heart disease and other diseases of the circulatory system; Z83.1 Family history of other infectious and parasitic diseases
CPT/HCPCS: 36415; 80048; 80053; 80202; 83605; 85025; 85027; 86140; 87040; 87070; 87077; 87186; 87205; 94640; 96361; 96374; 99284

== ENCOUNTER 2020-04-26 13:55 | Inpatient (IN) | payer MEDICARE ==
--- NOTE | 2020-04-26 14:48 | ED ---
Skin/Abscess/FB HPI - General Chief complaint: Skin/Abscess/Foreign Body Stated complaint: Sent by PCP - bilateral leg pain Time Seen by Provider: 04/26/20 14:08 Source: patient, RN notes reviewed Mode of arrival: wheelchair Limitations: no limitations - History of Present Illness Initial comments: 64-year-old female presents emergency Department chief complaint of bilateral lower extremity infection. Patient states that she was hospitalized a few weeks ago for similar reasons. Patient was seen by PCP and sent here for admission patient has been having worsening leg edema and erythema. She states that she's had some open wounds she has been seen by wound center in the past. She reports no definite fever. States she's had some chills. Patient has no history DVT or PE no chest pain or shortness of breath. Patient does take a diuretic currently states that she's been on Lasix. Patient states she's had some urinary frequency mild dysuria. No significant abdominal pain no diarrhea no constipation. - Related Data Home Medications Medication Instructions Recorded Confirmed Divalproex [Depakote] 500 mg PO TID 12/17/13 03/29/20 Gabapentin [Neurontin] 800 mg PO TID PRN 12/17/13 03/29/20 Montelukast [Singulair] 10 mg PO HS 12/17/13 03/29/20 busPIRone HCL [Buspar] 30 mg PO BID 12/17/13 03/29/20 lamoTRIgine [LaMICtal] 100 mg PO BID 12/17/13 03/29/20 lisinopriL [Zestril] 20 mg PO DAILY 12/17/13 03/29/20 Albuterol Sulfate [Proair Hfa] 1 - 2 puff INHALATION RT-Q6H PRN 05/07/18 03/29/20 Cyclobenzaprine [Flexeril] 10 mg PO BID 06/01/19 03/29/20 Fluticasone Propion/Salmeterol 1 puff INHALATION RT-BID 06/01/19 03/29/20 [Wixela 250-50 Inhub] PARoxetine [Paxil] 20 mg PO DAILY 06/01/19 03/29/20 Cetirizine HCl 10 mg PO QAM 03/29/20 03/29/20 Levothyroxine Sodium [Synthroid] 150 mcg PO QAM 03/29/20 03/29/20 Mupirocin 2% Oint [Bactroban 2% 1 applic TOPICAL TID PRN 03/29/20 03/29/20 Oint] Previous Rx's Medication Instructions Recorded Ciprofloxacin HCl [Cipro] 750 mg PO BID #14 tablet 04/01/20 amLODIPine [Norvasc] 5 mg PO DAILY #30 tab 04/01/20 Allergies Allergy/AdvReac Type Severity Reaction Status Date / Time codeine Allergy Unknown Verified 04/26/20 14:04 Childhood Penicillins Allergy Rash/Hives Verified 04/26/20 14:04 Sulfa (Sulfonamide Allergy Rash/Hives Verified 04/26/20 14:04 Antibiotics) Review of Systems ROS Statement: Those systems with pertinent positive or pertinent negative responses have been documented in the HPI. ROS Other: All systems not noted in ROS Statement are negative. Past Medical History Past Medical History: Asthma, COPD, Diabetes Mellitus, Fibromyalgia, GERD/Reflux, Hypertension, Osteoarthritis (OA), Pneumonia, Pulmonary Embolus ( PE), Skin Disorder, Thyroid Disorder Additional Past Medical History / Comment(s): Cervical disc disease/stenosis, scoliosis, wears back brace, recently having numbness/tingling L side of face/neck, recently saw history teacher for L hemidiaphragmatic elevation-pt states she was told this was probably genetic, recently bronchitis and past bronchitis, pt states recent med change (water pill) d/t electrolyte problem/kidney function being affected, pt states she has had pulmonary emboli, past bilateral lower extremity cellulitis, edema lower extremities, IBS, hemorrhoids, benign colon polyps, sinus problems, UTIs, bacteremia/sepsis, cardiac murmur, past L ankle and L wrist fractures. History of Any Multi-Drug Resistant Organisms: None Reported Past Surgical History: Adenoidectomy, Section, Cholecystectomy, Hys terectomy, Tonsillectomy Additional Past Surgical History / Comment(s): EGD, colonoscopies, gastric bypass, surgery for deviated septum Past Anesthesia/Blood Transfusion Reactions: Previous Problems w/ Anesthesia Additional Past Anesthesia/Blood Transfusion Reaction / Comment(s): itching, some kind of problem after gastric bypass-not sure what happened Past Psychological History: Anxiety, Bipolar, Depression Smoking Status: Current every day smoker Past Alcohol Use History: None Reported Past Drug Use History: None Reported - Past Family History Mother Family Medical History: Congestive Heart Failure (CHF), Hypertension Father Additional Family Medical History / Comment(s): Father at the age of 45 yrs d/t having had rheumatic fever as a child and heart valve disease. General Exam Limitations: no limitations General appearance: alert, in no apparent distress Head exam: Present: atraumatic, normocephalic, normal inspection Eye exam: Present: normal appearance, PERRL, EOMI. Absent: scleral icterus, conjunctival injection, periorbital swelling Neck exam: Present: normal inspection, full ROM. Absent: tenderness, meningismus, lymphadenopathy Respiratory exam: Present: normal lung sounds bilaterally. Absent: respiratory distress, wheezes, rales, rhonchi, stridor Cardiovascular Exam: Present: regular rate, normal rhythm, normal heart sounds. Absent: systolic murmur, diastolic murmur, rubs, gallop, clicks Extremities exam: Present: other (Bilateral lower extremity erythematous, edematous. There are pulses are equal bilaterally, patient's full range of motion there are some healing wounds primarily the left lower extremity no palpable lymph nodes. There is some increased warmth to palpation the lower extremities) Neurological exam: Present: alert, oriented X3, CN II-XII intact Skin exam: Present: warm, dry, intact, normal color. Absent: rash Course Vital Signs 04/26/20 04/26/20 14:01 14:54 Temperature 98.5 F 98.7 F Pulse Rate 74 70 Respiratory 18 18 Rate Blood Pressure 134/67 144/89 O2 Sat by Pulse 98 96 Oximetry - Reevaluation(s) Reevaluation #1: 04/26/20 14:48 Prior medical record reviewed, labs blood culture were ordered. Medical Decision Making - Medical Decision Making 64-year-old female presented for bilateral leg swelling and erythema. Patient has extensive cellulitis is fell outpatient treatment ciprofloxacin. Patient be admitted for IV antibiotics and further evaluation. - Lab Data Result diagrams: 04/26/20 14:24 04/26/20 14:24 Lab Results 04/26/20 04/26/20 04/26/20 Range/Units 14:24 14:24 14:24 WBC 7.7 (3.8-10.6) k/uL RBC 4.41 (3.80-5.40) m/uL Hgb 13.9 (11.4-16.0) gm/dL Hct 42.6 (34.0-46.0) % MCV 96.5 (80.0-100.0) fL MCH 31.6 (25.0-35.0) pg MCHC 32.7 (31.0-37.0) g/dL RDW 12.9 (11.5-15.5) % Plt Count 180 (150-450) k/uL Neutrophils % 66 % Lymphocytes % 19 % Monocytes % 11 % Eosinophils % 1 % Basophils % 1 % Neutrophils # 5.1 (1.3-7.7) k/uL Lymphocytes # 1.5 (1.0-4.8) k/uL Monocytes # 0.8 (0-1.0) k/uL Eosinophils # 0.1 (0-0.7) k/uL Basophils # 0.1 (0-0.2) k/uL PT 9.4 (9.0-12.0) sec INR 0.9 (<1.2) APTT 25.1 (22.0-30.0) sec Sodium 129 L (137-145) mmol/L Potassium 4.5 (3.5-5.1) mmol/L Chloride 91 L (98-107) mmol/L Carbon Dioxide 34 H (22-30) mmol/L Anion Gap 4 mmol/L BUN 9 (7-17) mg/dL Creatinine 0.65 (0.52-1.04) mg/dL Est GFR (CKD-EPI)AfAm >90 (>60 ml/min/1.73 sqM) Est GFR (CKD-EPI)NonAf >90 (>60 ml/min/1.73 sqM) Glucose 79 (74-99) mg/dL Plasma Lactic Acid Joel (0.7-2.0) mmol/L Calcium 9.7 (8.4-10.2) mg/dL Total Bilirubin 0.4 (0.2-1.3) mg/dL AST 29 (14-36) U/L ALT 10 (4-34) U/L Alkaline Phosphatase 77 (38-126) U/L Total Protein 6.0 L (6.3-8.2) g/dL Albumin 3.8 (3.5-5.0) g/dL 04/26/20 Range/Units 14:24 WBC (3.8-10.6) k/uL RBC (3.80-5.40) m/uL Hgb (11.4-16.0) gm/dL Hct (34.0-46.0) % MCV (80.0-100.0) fL MCH (25.0-35.0) pg MCHC (31.0-37.0) g/dL RDW (11.5-15.5) % Plt Count (150-450) k/uL Neutrophils % % Lymphocytes % % Monocytes % % Eosinophils % % Basophils % % Neutrophils # (1.3-7.7) k/uL Lymphocytes # (1.0-4.8) k/uL Monocytes # (0-1.0) k/uL Eosinophils # (0-0.7) k/uL Basophils # (0-0.2) k/uL PT (9.0-12.0) sec INR (<1.2) APTT (22.0-30.0) sec Sodium (137-145) mmol/L Potassium (3.5-5.1) mmol/L Chloride (98-107) mmol/L Carbon Dioxide (22-30) mmol/L Anion Gap mmol/L BUN (7-17) mg/dL Creatinine (0.52-1.04) mg/dL Est GFR (CKD-EPI)AfAm (>60 ml/min/1.73 sqM) Est GFR (CKD-EPI)NonAf (>60 ml/min/1.73 sqM) Glucose (74-99) mg/dL Plasma Lactic Acid Joel 0.9 (0.7-2.0) mmol/L Calcium (8.4-10.2) mg/dL Total Bilirubin (0.2-1.3) mg/dL AST (14-36) U/L ALT (4-34) U/L Alkaline Phosphatase (38-126) U/L Total Protein (6.3-8.2) g/dL Albumin (3.5-5.0) g/dL Disposition Clinical Impression: Bilateral lower leg cellulitis Disposition: ADMITTED IP TO THIS [facility] Condition: Fair Referrals: Andrzej Wheeler MD [Primary Care Provider] - 1-2 days
[2020-04-26] MEDS ORDERED: HYDROcodone/APAP 5-325MG 1 EACH TAB PO STA (14:51)
[2020-04-26 14:57] LABS: Basophils # (A) 0.1 k/uL (0-0.2); Basophils % (A) 1 %; Eosinophils # (A) 0.1 k/uL (0-0.7); Eosinophils % (A) 1 %; HCT 42.6 % (34.0-46.0); HGB 13.9 gm/dL (11.4-16.0); Lymphocytes # (A) 1.5 k/uL (1.0-4.8); Lymphocytes % (A) 19 %; MCH 31.6 pg (25.0-35.0); MCHC 32.7 g/dL (31.0-37.0); MCV 96.5 fL (80.0-100.0); Mean Platelet Volume 6.9; Monocytes # (A) 0.8 k/uL (0-1.0); Monocytes % (A) 11 %; Neutrophils # (A) 5.1 k/uL (1.3-7.7); Neutrophils % (A) 66 %; Platelet Count 180 k/uL (150-450); RBC 4.41 m/uL (3.80-5.40); RDW 12.9 % (11.5-15.5); WBC 7.7 k/uL (3.8-10.6)
[2020-04-26 15:05] LABS: INR 0.9 (<1.2); Partial Thromboplastin Time 25.1 sec (22.0-30.0); Prothrombin Time 9.4 sec (9.0-12.0)
[2020-04-26 15:08] LABS: ALT 10 U/L (4-34); AST 29 U/L (14-36); African American GFR (CKD) >90 (>60 ml/min/1.73 sqM); Albumin 3.8 g/dL (3.5-5.0); Alkaline Phosphatase 77 U/L (38-126); Anion Gap 4 mmol/L; Blood Urea Nitrogen 9 mg/dL (7-17); Calcium 9.7 mg/dL (8.4-10.2); Carbon Dioxide 34 mmol/L (22-30); Chloride 91 mmol/L (98-107); Glucose 79 mg/dL (74-99); Non-African American GFR(CKD) >90 (>60 ml/min/1.73 sqM); Potassium 4.5 mmol/L (3.5-5.1); Sodium 129 mmol/L (137-145); Total Bilirubin 0.4 mg/dL (0.2-1.3)
[2020-04-26] MEDS ORDERED: VANCOMYCIN IV PER PHARMACY 1 EACH MISC MISCELLANE PRN (15:39)
[2020-04-26] MEDS ORDERED: ONDANSETRON 4 MG/2 ML VIAL IVP PRN (15:40)
[2020-04-26] MEDS ORDERED: NALOXONE 0.4 MG/ML 1 ML VIAL IV PRN (15:40)
[2020-04-26] MEDS ORDERED: VANCOMYCIN 1,750 MG in SODIUM CHLORIDE 0.9% 500 ML 500 ML IVPB STA (15:48)
[2020-04-26] MEDS ORDERED: ALBUTEROL NEBULIZED 2.5 MG/3 ML INHALATION PRN (19:38)
[2020-04-26] MEDS: INSULIN ASPART (NovoLOG) 100 UNIT/ML VIAL SQ SCH (20:30)
[2020-04-26 20:31] LABS: Glucose,Whole Blood 94 mg/dL (75-99)
[2020-04-26] MEDS: SODIUM CHLORIDE 0.9% 1,000 ML IV SCH (21:00)
[2020-04-26] MEDS: DIVALPROEX 500 MG TABLET.DR PO SCH (21:04)
[2020-04-26] MEDS: CYCLOBENZAPRINE 10 MG TAB PO SCH (21:04)
[2020-04-26] MEDS: MUPIROCIN 2% OINT 22 GM TUBE TOPICAL SCH (21:04)
[2020-04-26] MEDS: MONTELUKAST 10 MG TAB PO SCH (21:04)
[2020-04-26] MEDS: GABAPENTIN 400 MG CAP PO SCH (21:04)
[2020-04-26] MEDS: lamoTRIgine 100 MG TAB PO SCH (21:04)
[2020-04-26] MEDS: busPIRone HCl 10 MG TAB PO SCH (21:04)
[2020-04-26] MEDS: SYMBICORT 80-4.5 MCG INHALER INHALATION SCH (21:08)
[2020-04-26] MEDS: HEPARIN SODIUM,PORCINE 5,000 UNIT/ML 1 ML VIAL SQ SCH (23:58)
[2020-04-27 04:04] LABS: Basophils % (A) 1 %; Eosinophils # (A) 0.1 k/uL (0-0.7); Eosinophils % (A) 2 %; HCT 37.8 % (34.0-46.0); HGB 12.2 gm/dL (11.4-16.0); Lymphocytes % (A) 22 %; MCH 31.5 pg (25.0-35.0); MCHC 32.4 g/dL (31.0-37.0); MCV 97.4 fL (80.0-100.0); Mean Platelet Volume 6.9; Monocytes # (A) 0.5 k/uL (0-1.0); Monocytes % (A) 12 %; Neutrophils # (A) 2.8 k/uL (1.3-7.7); Neutrophils % (A) 62 %; Platelet Count 152 k/uL (150-450); RBC 3.88 m/uL (3.80-5.40); RDW 12.9 % (11.5-15.5); WBC 4.5 k/uL (3.8-10.6)
[2020-04-27] MEDS: VANCOMYCIN 1,750 MG in SODIUM CHLORIDE 0.9% 500 ML 500 ML IVPB SCH ×2 (05:46→18:30)
[2020-04-27] MEDS: LEVOTHYROXINE 75 MCG TAB PO SCH (05:46)
[2020-04-27 07:07] LABS: Glucose,Whole Blood 74 mg/dL (75-99)
[2020-04-27] MEDS: SYMBICORT 80-4.5 MCG INHALER INHALATION SCH ×2 (07:30→19:37)
[2020-04-27 07:54] LABS: Appearance,Urine Clear (Clear); Bilirubin,Urine Negative (Negative); Blood,Urine Negative (Negative); Color,Urine Yellow; Glucose,Urine (UA) Negative (Negative); Ketones,Urine Negative (Negative); Leukocyte Esterase,Urine Small (Negative); Mucus,Urine Rare /hpf; Nitrite,Urine Negative (Negative); PH, Urine 6.5 (5.0-8.0); Protein,Urine Negative (Negative); RBC,Urine 1 /hpf (0-5); Specific Gravity,Urine 1.011 (1.001-1.035); Squamous Epithelial Cell,Urine 4 /hpf (0-4); Urobilinogen,Urine <2.0 mg/dL (<2.0); WBC,Urine 5 /hpf (0-5)
[2020-04-27] MEDS: INSULIN ASPART (NovoLOG) 100 UNIT/ML VIAL SQ SCH ×4 (08:29→21:03)
[2020-04-27] MEDS: amLODIPine 5 MG TAB PO SCH (08:39)
[2020-04-27] MEDS: HEPARIN SODIUM,PORCINE 5,000 UNIT/ML 1 ML VIAL SQ SCH ×2 (08:39→18:30)
[2020-04-27] MEDS: DIVALPROEX 500 MG TABLET.DR PO SCH ×3 (08:40→21:04)
[2020-04-27] MEDS: lisinopriL 20 MG TAB PO SCH (08:40)
[2020-04-27] MEDS: busPIRone HCl 10 MG TAB PO SCH ×2 (08:40→21:03)
[2020-04-27] MEDS: CYCLOBENZAPRINE 10 MG TAB PO SCH ×2 (08:40→21:03)
[2020-04-27] MEDS: GABAPENTIN 400 MG CAP PO SCH ×3 (08:40→21:04)
[2020-04-27] MEDS: PARoxetine 20 MG TAB PO SCH (08:41)
[2020-04-27] MEDS: lamoTRIgine 100 MG TAB PO SCH ×2 (08:41→21:04)
[2020-04-27] MEDS: MUPIROCIN 2% OINT 22 GM TUBE TOPICAL SCH ×2 (08:45→21:04)
[2020-04-27] MEDS: SODIUM CHLORIDE 0.9% 1,000 ML IV SCH ×2 (08:45→23:18)
[2020-04-27 09:30] LABS: African American GFR (CKD) 113.2 (60.0-200.0); Anion Gap 5.5 mmol/L (4.00-12.00); BUN/Creat Ratio 13.33 Ratio (12.00-20.00); Calcium 8.9 mg/dL (8.7-10.3); Carbon Dioxide 32.5 mmol/L (21.6-31.8); Non-African American GFR(CKD) 97.7 (60.0-200.0); Potassium 4.4 mmol/L (3.5-5.5)
[2020-04-27 11:35] LABS: Glucose,Whole Blood 68 mg/dL (75-99)
[2020-04-27] MEDS ORDERED: HEPARIN SODIUM,PORCINE 5,000 UNIT/ML 1 ML VIAL SQ SCH (11:45)
[2020-04-27 12:07] LABS: Glucose,Whole Blood 136 mg/dL (75-99)
[2020-04-27 12:07] LABS: Glucose,Whole Blood 68 mg/dL (75-99)
--- NOTE | 2020-04-27 12:08 | P.HPIM ---
History of Present Illness this is a pleasant 62 years old female with past medical history of cellulitis of the lower extremity was been recently discharged from the hospital on ciprofloxacin, no other chronic medical illnesses including GERD, hypertension, history of PE in the past and hypothyroidism and chronic low back pain patient was recently discharged from the hospital from [facility]- for Pseudomonas cellulitis of the both legs. Patient is complaining from bilateral lower extremity redness and swelling for 6 month, it became hard and more heavy for the last month, she went to see her PCP Dr. Wheeler yesterday who referred her to the hospital. Patient smokes about 1 pack per day, she has history of COPD and follow-up with Dr. Brannon. This morning she needed 4 L of oxygen, chest diminished air entry on both sides and she is In with yellow phlegm. her glucose was 60 this morning, however patient is eating well, she is not diabetic and not on insulin patient is afebrile and vitals are stable.sodium was 129 on admission, came back. Sodium was 129 on admission came back to normal at 135, CBC, BMP, liver enzymes and urinalysis were unremarkable with no source of infection. on admission patient was given 1 dose of ceftriaxone,and started on IV vancomycin. Review of Systems CONSTITUTIONAL: No fever, no malaise, no fatigue. HEENT: No recent visual problems or hearing problems. Denied any sore throat. CARDIOVASCULAR: No orthopnea, PND, no palpitations, no syncope. PULMONARY: No shortness of breath, no cough, no hemoptysis. GASTROINTESTINAL: No diarrhea, no nausea, no vomiting, no abdominal pain. Normoa ctive bowel sounds. NEUROLOGICAL: No headaches, no weakness, no numbness. HEMATOLOGICAL: Denies any bleeding or petechiae. GENITOURINARY: Denies any burning micturition, frequency, or urgency. MUSCULOSKELETAL/RHEUMATOLOGICAL: Denies any joint pain, swelling, or any muscle pain. ENDOCRINE: Denies any polyuria or polydipsia. Past Medical History Past Medical History: Asthma, COPD, Diabetes Mellitus, Fibromyalgia, GERD/Reflux, Hypertension, Osteoarthritis (OA), Pneumonia, Pulmonary Embolus (PE), Skin Disorder, Thyroid Disorder Additional Past Medical History / Comment(s): Cervical disc disease/stenosis, scoliosis, wears back brace, recently having numbness/tingling L side of face/neck, recently saw manufacturing quality engineer for L hemidiaphragmatic elevation-pt states she was told this was probably genetic, recently bronchitis and past bronchitis, pt states recent med change (water pill) d/t electrolyte problem/kidney function being affected, pt states she has had pulmonary emboli, past bilateral lower extremity cellulitis, edema lower extremities, IBS, hemorrhoids, benign colon polyps, sinus problems, UTIs, bacteremia/sepsis, cardiac murmur, past L ankle and L wrist fractures. History of Any Multi-Drug Resistant Organisms: None Reported Past Surgical History: Adenoidectomy, Section, Cholecystectomy, Hysterectomy, Tonsillectomy Additional Past Surgical History / Comment(s): EGD, colonoscopies, gastric bypass, surgery for deviated septum Past Anesthesia/Blood Transfusion Reactions: Previous Problems w/ Anesthesia Additional Past Anesthesia/Blood Transfusion Reaction / Comment(s): itching, some kind of problem after gastric bypass-not sure what happened Past Psychological History: Anxiety, Bipolar, Depression Additional Psychological History / Comment(s): Pt resides with her spouse. They have a cat. She states her depression is not an issue. She states her anxiety and panic attacks are severe. She wears a back brace when up. She drives. Smoking Status: Current every day smoker Past Alcohol Use History: None Reported Additional Past Alcohol Use History / Comment(s): Pt states she has no idea at what age she began smoking. She states she has quit many times over the years but is currently smoking. Past Drug Use History: None Reported - Past Family History Mother Family Medical History: Congestive Heart Failure (CHF), Hypertension Father Additional Family Medical History / Comment(s): Father at the age of 45 yrs d/t having had rheumatic fever as a child and heart valve disease. Medications and Allergies Home Medications Medication Instructions Recorded Confirmed Type Divalproex [Depakote] 500 mg PO TID 12/17/13 04/26/20 History Gabapentin [Neurontin] 800 mg PO TID 12/17/13 04/26/20 History Montelukast [Singulair] 10 mg PO HS 12/17/13 04/26/20 History busPIRone HCL [Buspar] 30 mg PO BID 12/17/13 04/26/20 History lamoTRIgine [LaMICtal] 100 mg PO BID 12/17/13 04/26/20 History lisinopriL [Zestril] 20 mg PO DAILY 12/17/13 04/26/20 History Albuterol Sulfate [Proair Hfa] 2 puff INHALATION RT-Q6H PRN 05/07/18 04/26/20 History Cyclobenzaprine [Flexeril] 10 mg PO BID 06/01/19 04/26/20 History Fluticasone Propion/Salmeterol 1 puff INHALATION RT-BID 06/01/19 04/26/20 History [Wixela 250-50 Inhub] PARoxetine [Paxil] 20 mg PO DAILY 06/01/19 04/26/20 History Levothyroxine Sodium [Synthroid] 150 mcg PO DAILY 03/29/20 04/26/20 History Mupirocin 2% Oint [Bactroban 2% 1 applic TOPICAL BID 03/29/20 04/26/20 History Oint] amLODIPine [Norvasc] 5 mg PO DAILY #30 tab 04/01/20 04/26/20 Rx SILVER sulfADIAZINE CREAM 1 applic TOPICAL BID 04/26/20 04/26/20 History [Silvadene Cream] Allergies Allergy/AdvReac Type Severity Reaction Status Date / Time codeine Allergy Unknown Verified 04/26/20 16:14 Childhood Penicillins Allergy Rash/Hives Verified 04/26/20 16:14 Sulfa (Sulfonamide Allergy Rash/Hives Verified 04/26/20 16:14 Antibiotics) Physical Exam Vitals: Vital Signs Temp Pulse Pulse Resp BP BP Pulse Ox 04/27/20 07:10 18 04/27/20 05:43 97.9 F 70 22 150/76 95 04/26/20 21:25 97.7 F 68 19 160/74 92 L 04/26/20 21:19 65 04/26/20 21:08 65 04/26/20 18:21 127/70 04/26/20 17:37 98 F 72 20 153/101 94 L 04/26/20 16:27 98.4 F 77 18 150/77 92 L 04/26/20 14:54 98.7 F 70 18 144/89 96 04/26/20 14:01 98.5 F 74 18 134/67 98 Intake and Output 04/26/20 04/27/20 04/27/20 22:59 06:59 14:59 Intake Total 1690 Balance 1690 Intake: Intake, IV Titration 1100 Amount Sodium Chloride 0.9% 1, 600 000 ml @ 75 mls/hr IV . [id number] Rx#:[id number] Vancomycin 1,750 mg In 500 Sodium Chloride 0.9% 500 ml 500 ml @ 167 mls/hr IVPB Q12H JEIMY Rx#: [id number] Oral 590 Other: Voiding Method Toilet # Voids 1 1 Weight 102.058 kg GENERAL: The patient is alert and oriented x3, not in any acute distress. Well developed, well nourished. HEENT: Pupils are round and equally reacting to light. EOMI. No scleral icterus. No conjunctival pallor. Normocephalic, atraumatic. No pharyngeal erythema. No thyromegaly. CARDIOVASCULAR: S1 and S2 present. No murmurs, rubs, or gallops. - PULMONARY: Chest is clear to auscultation, decreased air entry on both sideswith scattered wheezing ABDOMEN: Soft, nontender, nondistended, normoactive bowel sounds. No palpable organomegaly. MUSCULOSKELETAL: No joint swelling or deformity. -EXTREMITIES: No cyanosis, clubbing, or pedal edema. both legsa red, swollen and indurated NEUROLOGICAL: Gross neurological examination did not reveal any focal deficits. SKIN: No rashes. no petechiae. Results CBC & Chem 7: 04/27/20 03:19 04/27/20 03:19 Labs: Abnormal Lab Results - Last 24 Hours (Table) 04/26/20 04/27/20 04/27/20 Range/Units 14:24 03:19 07:05 Sodium 129 L (137-145) mmol/L Chloride 91 L (98-107) mmol/L Carbon Dioxide 34 H 32.5 H (22-30) mmol/L BUN 8.0 L (9.0-27.0) mg/dL POC Glucose (mg/dL) 74 L (75-99) mg/dL Total Protein 6.0 L (6.3-8.2) g/dL Ur Leukocyte Esterase (Negative) Urine Mucus (None) /hpf 04/27/20 Range/Units 07:30 Sodium (137-145) mmol/L Chloride (98-107) mmol/L Carbon Dioxide (22-30) mmol/L BUN (9.0-27.0) mg/dL POC Glucose (mg/dL) (75-99) mg/dL Total Protein (6.3-8.2) g/dL Ur Leukocyte Esterase Small H (Negative) Urine Mucus Rare H (None) /hpf Thrombosis Risk Factor Assmnt - Choose All That Apply Any of the Below Risk Factors Present?: Yes Each Factor Represents 1 point: Obesity (BMI >25) Other Risk Factors: Yes Each Risk Factor Represents 2 Points: Age 61-74 years Thrombosis Risk Factor Assessment Total Risk Factor Score: 3 Thrombosis Risk Factor Assessment Level: Moderate Risk Assessment and Plan Assessment: -recurrent cellulitis of both lower extremities -hyponatremia, improved -COPD with acute exacerbation -type 2 diabetes mellitus -Fibromyalgia -Gastric reflux disease Hypertension -History of PE in the past -Hypothyroidism -chronic low back pain Plan: this is a pleasant 64 years old female who presents with recurrent cellulitis of the lower extremity.Continue with antibiotics and consult infectious disease, follow-up culture results. I'll consult vascular surgery for recurrent cellulitis.start patient on Solu-Medrol, breathing treatment, oxygen as needed. Check Doppler of the lower extremity to rule out DVT Labs and medication were reviewed.. Continue same treatment. Continue with symptomatic treatment. Resume home medication. Monitor lytes and vitals. DVT and GI prophylaxis. Further recommendationsas per clinical course of the patient DVT prophylaxis: Subcutaneous heparin GI Prophylaxis: Pepcid PT/OT: Pending Prognosis is guarded
--- NOTE | 2020-04-27 13:04 | US ---
EXAMINATION TYPE: US venous doppler duplex LE DATE OF EXAM: 04/27/2020 12:06 PM COMPARISON: US CLINICAL HISTORY: bilateral leg redness and swelling. SIDE PERFORMED: Bilateral TECHNIQUE: The lower extremity deep venous system is examined utilizing real time linear array sonog holly with graded compression, doppler sonography and color-flow sonography. VESSELS IMAGED: External Iliac Vein (EIV) Common Femoral Vein Deep Femoral Vein Greater Saphenous Vein * Femoral Vein Popliteal Vein Small Saphenous Vein * Proximal Calf Veins (* superficial vessels) Technically difficult study due to patient body habitus and edema. Right Leg: Negative for DVT Left Leg: Negative for DVT IMPRESSION: No DVT of the bilateral lower extremities.
[2020-04-27] MEDS: CEFEPIME 1 GM in SODIUM CHLORIDE 0.9% 50 ML IVPB SCH (13:15)
[2020-04-27] MEDS: methylPREDNISolone SOD SUCCI 40 MG/ML 1 ML VIAL IV SCH ×2 (13:16→19:47)
[2020-04-27 13:45] LABS: Hemoglobin A1C 5.4 % (4.0-6.0)
--- NOTE | 2020-04-27 15:30 | P.GSCN ---
History of Present Illness Consult date: 04/27/20 History of present illness: Haydee is a 64-year-old female with a past medical history of asthma, COPD, diabetes, fibromyalgia, hypertension, cervical stenosis, bilateral lower extremity cellulitis and edema who presented to the hospital with cellulitis after being discharged with an infection on ciprofloxacin. She was cultured at that time was found to have Pseudomonas cellulitis earlier in March. She has had increasing redness in her lower extremities and more swelling than previously. At this point. She denies any fevers, chills, nausea, vomiting issues otherwise Review of Systems 14 point review of systems performed. Pertinent positives and negatives per the HPI Past Medical History Past Medical History: Asthma, COPD, Diabetes Mellitus, Fibromyalgia, GERD/Reflux, Hypertension, Osteoarthritis (OA), Pneumonia, Pulmonary Embolus (PE), Skin Disorder, Thyroid Disorder Additional Past Medical History / Comment(s): Cervical disc disease/stenosis, scoliosis, wears back brace, recently having numbness/tingling L side of face/neck, recently saw quick print operator for L hemidiaphragmatic elevation-pt states she was told this was probably genetic, recently bronchitis and past bronchitis, pt states recent med change (water pill) d/t electrolyte problem/kidney function being affected, pt states she has had pulmonary emboli, past bilateral lower extremity cellulitis, edema lower extremities, IBS, hemorrhoids, benign colon polyps, sinus problems, UTIs, bacteremia/sepsis, cardiac murmur, past L ankle and L wrist fractures. History of Any Multi-Drug Resistant Organisms: None Reported Past Surgical History: Adenoidectomy, Section, Cholecystectomy, Hysterectomy, Tonsillectomy Additional Past Surgical History / Comment(s): EGD, colonoscopies, gastric bypass, surgery for deviated septum Past Anesthesia/Blood Transfusion Reactions: Previous Problems w/ Anesthesia Additional Past Anesthesia/Blood Transfusion Reaction / Comm: itching, some kind of problem after gastric bypass-not sure what happened Past Psychological History: Anxiety, Bipolar, Depression Additional Psychological History / Comment(s): Pt resides with her spouse. They have a cat. She states her depression is not an issue. She states her anxiety and panic attacks are severe. She wears a back brace when up. She drives. Smoking Status: Current every day smoker Past Alcohol Use History: None Reported Additional Past Alcohol Use History / Comment(s): Pt states she has no idea at what age she began smoking. She states she has quit many times over the years but is currently smoking. Past Drug Use History: None Reported - Past Family History Mother Family Medical History: Congestive Heart Failure (CHF), Hypertension Father Additional Family Medical History / Comment(s): Father at the age of 45 yrs d/t having had rheumatic fever as a child and heart valve disease. Medications and Allergies Home Medications Medication Instructions Recorded Confirmed Type Divalproex [Depakote] 500 mg PO TID 12/17/13 04/26/20 History Gabapentin [Neurontin] 800 mg PO TID 12/17/13 04/26/20 History Montelukast [Singulair] 10 mg PO HS 12/17/13 04/26/20 History busPIRone HCL [Buspar] 30 mg PO BID 12/17/13 04/26/20 History lamoTRIgine [LaMICtal] 100 mg PO BID 12/17/13 04/26/20 History lisinopriL [Zestril] 20 mg PO DAILY 12/17/13 04/26/20 History Albuterol Sulfate [Proair Hfa] 2 puff INHALATION RT-Q6H PRN 05/07/18 04/26/20 History Cyclobenzaprine [Flexeril] 10 mg PO BID 06/01/19 04/26/20 History Fluticasone Propion/Salmeterol 1 puff INHALATION RT-BID 06/01/19 04/26/20 History [Wixela 250-50 Inhub] PARoxetine [Paxil] 20 mg PO DAILY 06/01/19 04/26/20 History Levothyroxine Sodium [Synthroid] 150 mcg PO DAILY 03/29/20 04/26/20 History Mupirocin 2% Oint [Bactroban 2% 1 applic TOPICAL BID 03/29/20 04/26/20 History Oint] amLODIPine [Norvasc] 5 mg PO DAILY #30 tab 04/01/20 04/26/20 Rx SILVER sulfADIAZINE CREAM 1 applic TOPICAL BID 04/26/20 04/26/20 History [Silvadene Cream] Allergies Allergy/AdvReac Type Severity Reaction Status Date / Time codeine Allergy Unknown Verified 04/26/20 16:14 Childhood Penicillins Allergy Rash/Hives Verified 04/26/20 16:14 Sulfa (Sulfonamide Allergy Rash/Hives Verified 04/26/20 16:14 Antibiotics) Surgical - Exam Vital Signs Temp Pulse Resp BP Pulse Ox 98.5 F 74 18 134/67 98 04/26/20 14:01 04/26/20 14:01 04/26/20 14:01 04/26/20 14:01 04/26/20 14:01 Gen. is an obese female in no acute distress, wearing oxygen. HEENT is normocephalic, atraumatic, extraocular motion intact. Heart is regular at this time. Lung sounds are decreased but normal otherwise. Abdomen is obese, nontender nondistended. She may show no clubbing or cyanosis. There is significant 2+ edema to the bilateral lower extremities. There is significant cellulitis and warmth to bilateral lower extremity. She may his palpable radial femoral, dorsalis pedis and posterior tibial pulses bilaterally. Normal mood and affect. Cranial nerves II through XII grossly intact Results - Labs 04/27/20 03:19 04/27/20 03:19 Abnormal Lab Results - Last 24 Hours (Table) 04/27/20 04/27/20 04/27/20 Range/Units 03:19 07:05 07:30 Carbon Dioxide 32.5 H (21.6-31.8) mmol/L BUN 8.0 L (9.0-27.0) mg/dL POC Glucose (mg/dL) 74 L (75-99) mg/dL Ur Leukocyte Esterase Small H (Negative) Urine Mucus Rare H (None) /hpf 04/27/20 04/27/20 04/27/20 Range/Units 11:17 11:36 12:02 Carbon Dioxide (21.6-31.8) mmol/L BUN (9.0-27.0) mg/dL POC Glucose (mg/dL) 68 L 68 L 136 H (75-99) mg/dL Ur Leukocyte Esterase (Negative) Urine Mucus (None) /hpf Diabetes panel 04/27/20 04/27/20 Range/Units 03:19 03:19 Sodium 135 (135-145) mmol/L Potassium 4.4 (3.5-5.5) mmol/L Chloride 97 (96-109) mmol/L Carbon Dioxide 32.5 H (21.6-31.8) mmol/L BUN 8.0 L (9.0-27.0) mg/dL Creatinine 0.6 (0.6-1.5) mg/dL Glucose 71 (70-110) mg/dL Hemoglobin A1c 5.4 (4.0-6.0) % Calcium 8.9 (8.7-10.3) mg/dL Calcium panel 04/27/20 Range/Units 03:19 Calcium 8.9 (8.7-10.3) mg/dL Pituitary panel 04/27/20 Range/Units 03:19 Sodium 135 (135-145) mmol/L Potassium 4.4 (3.5-5.5) mmol/L Chloride 97 (96-109) mmol/L Carbon Dioxide 32.5 H (21.6-31.8) mmol/L BUN 8.0 L (9.0-27.0) mg/dL Creatinine 0.6 (0.6-1.5) mg/dL Glucose 71 (70-110) mg/dL Calcium 8.9 (8.7-10.3) mg/dL Adrenal panel 04/27/20 Range/Units 03:19 Sodium 135 (135-145) mmol/L Potassium 4.4 (3.5-5.5) mmol/L Chloride 97 (96-109) mmol/L Carbon Dioxide 32.5 H (21.6-31.8) mmol/L BUN 8.0 L (9.0-27.0) mg/dL Creatinine 0.6 (0.6-1.5) mg/dL Glucose 71 (70-110) mg/dL Calcium 8.9 (8.7-10.3) mg/dL Assessment and Plan Assessment: #1 bilateral lower extremity synovitis #2 bilateral lower extremity edema #3 COPD #4 tobacco abuse Plan: Bilateral lower extremity edema causing cellulitis. At this time continue elevation, antibiotics and wraps for her lower extremities have decreased edema. Likely would need some degree of diuresis, with her increased oxygen demand and swelling, would question of there is some component of CHF at this time. No surgical interventions planned.
[2020-04-27 17:15] LABS: Glucose,Whole Blood 120 mg/dL (75-99)
[2020-04-27] MEDS: HYDROcodone/APAP 5-325MG 1 EACH TAB PO PRN (18:37)
[2020-04-27 20:31] LABS: Glucose,Whole Blood 162 mg/dL (75-99)
[2020-04-27] MEDS: FAMOTIDINE 20 MG/2 ML VIAL IV SCH (21:03)
[2020-04-27] MEDS: MONTELUKAST 10 MG TAB PO SCH (21:04)
[2020-04-27] MEDS: NICOTINE 21MG/24HR PATCH TRANSDERM SCH (23:59)
[2020-04-28] MEDS: methylPREDNISolone SOD SUCCI 40 MG/ML 1 ML VIAL IV SCH ×4 (01:52→17:21)
[2020-04-28 02:26] LABS: Glucose,Whole Blood 126 mg/dL (75-99)
[2020-04-28] MEDS: LEVOTHYROXINE 75 MCG TAB PO SCH (06:04)
[2020-04-28] MEDS: VANCOMYCIN 1,750 MG in SODIUM CHLORIDE 0.9% 500 ML 500 ML IVPB SCH ×2 (06:08→19:23)
[2020-04-28 06:57] LABS: Basophils % (A) 0 %; Eosinophils % (A) 0 %; HCT 43.8 % (34.0-46.0); HGB 14.1 gm/dL (11.4-16.0); Lymphocytes # (A) 0.5 k/uL (1.0-4.8); Lymphocytes % (A) 10 %; MCH 31.3 pg (25.0-35.0); MCHC 32.2 g/dL (31.0-37.0); MCV 97.2 fL (80.0-100.0); Mean Platelet Volume 7.1; Monocytes # (A) 0.1 k/uL (0-1.0); Monocytes % (A) 3 %; Neutrophils # (A) 4.1 k/uL (1.3-7.7); Neutrophils % (A) 86 %; Platelet Count 166 k/uL (150-450); RBC 4.51 m/uL (3.80-5.40); RDW 12.8 % (11.5-15.5); WBC 4.7 k/uL (3.8-10.6)
[2020-04-28 07:11] LABS: Glucose,Whole Blood 126 mg/dL (75-99)
[2020-04-28] MEDS: SYMBICORT 80-4.5 MCG INHALER INHALATION SCH ×2 (07:52→21:27)
[2020-04-28] MEDS: INSULIN ASPART (NovoLOG) 100 UNIT/ML VIAL SQ SCH ×4 (08:54→21:32)
[2020-04-28] MEDS: GABAPENTIN 400 MG CAP PO SCH ×3 (09:14→21:31)
[2020-04-28] MEDS: CYCLOBENZAPRINE 10 MG TAB PO SCH ×2 (09:14→21:31)
[2020-04-28] MEDS: NICOTINE 21MG/24HR PATCH TRANSDERM SCH (09:14)
[2020-04-28] MEDS: PARoxetine 20 MG TAB PO SCH (09:14)
[2020-04-28] MEDS: MUPIROCIN 2% OINT 22 GM TUBE TOPICAL SCH ×2 (09:14→21:35)
[2020-04-28] MEDS: busPIRone HCl 10 MG TAB PO SCH ×2 (09:15→21:32)
[2020-04-28] MEDS: FAMOTIDINE 20 MG/2 ML VIAL IV SCH ×2 (09:15→21:32)
[2020-04-28] MEDS: amLODIPine 5 MG TAB PO SCH (09:15)
[2020-04-28] MEDS: DIVALPROEX 500 MG TABLET.DR PO SCH ×3 (09:15→21:31)
[2020-04-28] MEDS: CEFEPIME 1 GM in SODIUM CHLORIDE 0.9% 50 ML IVPB SCH ×4 (09:16→21:35)
[2020-04-28] MEDS: HEPARIN SODIUM,PORCINE 5,000 UNIT/ML 1 ML VIAL SQ SCH ×3 (09:24→17:21)
[2020-04-28] MEDS: lamoTRIgine 100 MG TAB PO SCH ×2 (09:24→21:32)
[2020-04-28] MEDS: lisinopriL 20 MG TAB PO SCH (09:24)
[2020-04-28 09:37] LABS: African American GFR (CKD) 107.6 (60.0-200.0); Anion Gap 7.8 mmol/L (4.00-12.00); BUN/Creat Ratio 14.29 Ratio (12.00-20.00); Calcium 9.8 mg/dL (8.7-10.3); Carbon Dioxide 31.2 mmol/L (21.6-31.8); Non-African American GFR(CKD) 92.9 (60.0-200.0)
--- NOTE | 2020-04-28 10:02 | P.PN ---
Subjective this is a pleasant 62 years old female with past medical history of cellulitis of the lower extremity was been recently discharged from the hospital on ciprofloxacin, no other chronic medical illnesses including GERD, hypertension, history of PE in the past and hypothyroidism and chronic low back pain patient was recently discharged from the hospital from [facility] for Pseudomonas cellulitis of the both legs. Patient is complaining from bilateral lower extremity redness and swelling for 6 month, it became hard and more heavy for the last month, she went to see her PCP Dr. Wheeler yesterday who referred her to the hospital. Patient smokes about 1 pack per day, she has history of COPD and follow-up with Dr. Brannon. This morning she needed 4 L of oxygen, chest diminished air entry on both sides and she is In with yellow phlegm. her glucose was 60 this morning, however patient is eating well, she is not diabetic and not on insulin patient is afebrile and vitals are stable.sodium was 129 on admission, came back. Sodium was 129 on admission came back to normal at 135, CBC, BMP, liver enzymes and urinalysis were unremarkable with no source of infection. on admission patient was given 1 dose of ceftriaxone,and started on IV vancomycin. 04/28/2020 Patient is awake and alert today, she feels that her both legs are improving however they are still swollen. They are wrapped in a dressing and Gen wrap. Doppler of the lower extremity was negative for DVT. She remains on cefepime and IV vancomycin. Infectious disease on the case, Echocardiogram is pending for bilateral leg swelling. IV fluids was stopped. We'll start the patient on Lasix 40 mg once a day. She still has chest tightness with occasional coughing. On examination she has decreased air entry, she is on Solu-Medrol 60 mg and breathing treatment. She is not on home oxygen and currently she is saturating 94% and 2 L oxygen via nasal cannula. Chest x-ray and covid test is ordered as well as pulmonary consult Review of Systems CONSTITUTIONAL: No fever, no malaise, no fatigue. HEENT: No recent visual problems or hearing problems. Denied any sore throat. CARDIOVASCULAR: No orthopnea, PND, no palpitations, no syncope. PULMONARY: No chest wall tenderness, no hemoptysis. GASTROINTESTINAL: No diarrhea, no nausea, no vomiting, no abdominal pain. Normoactive bowel sounds. Active Medications Generic Name Dose Route Start Last Admin Trade Name Freq PRN Reason Stop Dose Admin Hydrocodone Bitart/Acetaminophen 1 each 04/26/20 15:40 04/27/20 18:37 Hydrocodone/Apap 5-325mg 1 Each Tab PO 1 each Q4HR PRN Administration Moderate Pain Albuterol/Ipratropium 3 ml 04/27/20 12:06 Ipratropium-Albuterol 3 Ml Neb INHALATION RT-QID PRN Shortness Of Breath Or Wheezing Amlodipine Besylate 5 mg 04/27/20 09:00 04/28/20 09:15 Amlodipine 5 Mg Tab PO 5 mg DAILY JEIMY Administration Budesonide/Formoterol Fumarate 2 puff 04/26/20 20:00 04/28/20 07:52 Symbicort 80-4.5 Mcg Inhaler INHALATION 2 puff RT-BID JEIMY Administration Buspirone HCl 30 mg 04/26/20 21:00 04/28/20 09:15 Buspirone Hcl 10 Mg Tab PO 30 mg BID JEIMY Administration Cyclobenzaprine HCl 10 mg 04/26/20 21:00 04/28/20 09:14 Cyclobenzaprine 10 Mg Tab PO 10 mg BID JEIMY Administration Divalproex Sodium 500 mg 04/26/20 22:00 04/28/20 09:15 Divalproex 500 Mg Tablet.Dr PO 500 mg TID JEIMY Administration Famotidine 20 mg 04/27/20 21:00 04/28/20 09:15 Famotidine 20 Mg/2 Ml Vial IV 20 mg Q12HR JEIMY Administration Gabapentin 800 mg 04/26/20 22:00 04/28/20 09:14 Gabapentin 400 Mg Cap PO 800 mg TID JEIMY Administration Heparin Sodium (Porcine) 5,000 unit 04/27/20 16:00 04/28/20 09:24 Heparin Sodium,Porcine 5,000 Unit/Ml 1 Ml Vial SQ 5,000 unit Q8HR JEIMY Administration Vancomycin HCl 1,750 mg/ 500 mls @ 167 mls/hr 04/27/20 06:00 04/28/20 06:08 Sodium Chloride IVPB 167 mls/hr Q12H JEIMY Administration Cefepime HCl 1 gm/ Sodium 50 mls @ 12.5 mls/hr 04/27/20 13:00 04/28/20 09:16 Chloride IVPB 12.5 mls/hr Q12HR JEIMY Administration Insulin Aspart 0 unit 04/26/20 21:00 04/28/20 08:54 Insulin Aspart (Novolog) 100 Unit/Ml Vial SQ Not Given ACHS [facility] Protocol Lamotrigine 100 mg 04/26/20 21:00 04/28/20 09:24 Lamotrigine 100 Mg Tab PO 100 mg BID JEIMY Administration Levothyroxine Sodium 150 mcg 04/27/20 06:30 04/28/20 06:04 Levothyroxine 75 Mcg Tab PO 150 mcg DAILY@0630 JEIMY Administration Lisinopril 20 mg 04/27/20 09:00 04/28/20 09:24 Lisinopril 20 Mg Tab PO 20 mg DAILY JEIMY Administration Methylprednisolone Sodium Succinate 60 mg 04/27/20 23:15 04/28/20 06:04 Methylprednisolone Sod Succi 40 Mg/Ml 1 Ml Vial IV 60 mg Q6H JEIMY Administration Miscellaneous Information 0 each 04/29/20 05:00 Vancomycin Trough Due 1 Each Misc MISCELLANE 04/29/20 05:01 DIRECTED ONE Montelukast Sodium 10 mg 04/26/20 21:00 04/27/20 21:04 Montelukast 10 Mg Tab PO 10 mg HS JEIMY Administration Mupirocin 1 applic 04/26/20 21:00 04/28/20 09:14 Mupirocin 2% Oint 22 Gm Tube TOPICAL 1 applic BID JEIMY Administration Naloxone HCl 0.2 mg 04/26/20 15:40 Naloxone 0.4 Mg/Ml 1 Ml Vial IV Q2M PRN Opioid Reversal Nicotine 1 patch 04/27/20 23:15 04/28/20 09:14 Nicotine 21mg/24hr Patch TRANSDERM 1 patch DAILY JEIMY Administration Ondansetron HCl 4 mg 04/26/20 15:40 Ondansetron 4 Mg/2 Ml Vial IVP Q8HR PRN Nausea And Vomiting Paroxetine HCl 20 mg 04/27/20 09:00 04/28/20 09:14 Paroxetine 20 Mg Tab PO 20 mg DAILY JEIMY Administration Silver Sulfadiazine 1 applic 04/26/20 21:00 04/28/20 09:14 Silver Sulfadiazine 1% Cream 25 Gm Tube TOPICAL 1 applic BID JEIMY Administration Objective - Vital Signs Vital signs: Vital Signs Temp 98.3 F 04/28/20 04:04 Pulse 71 04/28/20 04:04 Resp 18 04/28/20 04:04 BP 145/67 04/28/20 04:04 Pulse Ox 94 L 04/28/20 06:13 Intake & Output 04/27/20 04/28/20 04/28/20 18:59 06:59 18:59 Intake Total 1600 2200 Balance 1600 2200 Intake: Intake, IV Titration 600 1020 Amount Cefepime 1 gm In Sodium 100 100 Chloride 0.9% 50 ml @ 12. 5 mls/hr IVPB Q12HR JEIMY Rx#:[id number] Sodium Chloride 0.9% 1, 420 000 ml @ 75 mls/hr IV . [id number] JEIMY Rx#:[id number] Vancomycin 1,750 mg In 500 500 Sodium Chloride 0.9% 500 ml 500 ml @ 167 mls/hr IVPB Q12H JEIMY Rx#: [id number] Oral 1000 1180 Other: Voiding Method Toilet # Voids 1 1 - Exam GENERAL: The patient is alert and oriented x3, not in any acute distress. Well developed, well nourished. HEENT: Pupils are round and equally reacting to light. EOMI. No scleral icterus. No conjunctival pallor. Normocephalic, atraumatic. No pharyngeal erythema. No thyromegaly. CARDIOVASCULAR: S1 and S2 present. No murmurs, rubs, or gallops. - PULMONARY: Chest is clear to auscultation, decreased air entry on both sides with scattered wheezing ABDOMEN: Soft, nontender, nondistended, normoactive bowel sounds. No palpable organomegaly. MUSCULOSKELETAL: No joint swelling or deformity. -EXTREMITIES: No cyanosis, clubbing, or pedal edema. both legs are red, swollen and indurated NEUROLOGICAL: Gross neurological examination did not reveal any focal deficits. SKIN: No rashes. no petechiae. - Labs CBC & Chem 7: 04/28/20 06:01 04/28/20 06:01 Labs: Abnormal Lab Results - Last 24 Hours (Table) 04/27/20 04/27/20 04/27/20 Range/Units 11:17 11:36 12:02 Lymphocytes # (1.0-4.8) k/uL Sodium (135-145) mmol/L Chloride (96-109) mmol/L Glucose (70-110) mg/dL POC Glucose (mg/dL) 68 L 68 L 136 H (75-99) mg/dL 04/27/20 04/27/20 04/28/20 Range/Units 17:01 20:30 02:25 Lymphocytes # (1.0-4.8) k/uL Sodium (135-145) mmol/L Chloride (96-109) mmol/L Glucose (70-110) mg/dL POC Glucose (mg/dL) 120 H 162 H 126 H (75-99) mg/dL 04/28/20 04/28/20 04/28/20 Range/Units 06:01 06:01 07:09 Lymphocytes # 0.5 L (1.0-4.8) k/uL Sodium 134 L (135-145) mmol/L Chloride 95 L (96-109) mmol/L Glucose 128 H (70-110) mg/dL POC Glucose (mg/dL) 126 H (75-99) mg/dL Microbiology - Last 24 Hours (Table) 04/26/20 14:24 Blood Culture - Preliminary Blood No Growth after 24 hours Assessment and Plan Assessment: -recurrent cellulitis of both lower extremities -hyponatremia, improved -COPD with acute exacerbation -Acute hypoxic respiratory failure -type 2 diabetes mellitus -Fibromyalgia -Gastric reflux disease Hypertension -History of PE in the past -Hypothyroidism -chronic low back pain Plan: this is a pleasant 64 years old female who presents with recurrent cellulitis of the lower extremity.Continue with antibiotics and consult infectious disease, follow-up culture results.start patient on Solu-Medrol, breathing treatment, oxygen as needed. Consult pulmonary service Labs and medication were reviewed.. Continue same treatment. Continue with symptomatic treatment. Resume home medication. Monitor lytes and vitals. DVT and GI prophylaxis. Further recommendationsas per clinical course of the patient DVT prophylaxis: Subcutaneous heparin GI Prophylaxis: Pepcid PT/OT: Pending Prognosis is guarded
--- NOTE | 2020-04-28 10:31 | XR ---
EXAMINATION TYPE: XR chest 2V DATE OF EXAM: 04/28/2020 COMPARISON: 06/01/2019 HISTORY: Shortness of breath TECHNIQUE: Frontal and lateral views of the chest are obtained. FINDINGS: Scattered senescent parenchymal changes noted. Hyperinflation compatible with COPD. Basilar atelectasis and/or infiltrates noted. Heart size is stable. Mediastinal structures are stable and grossly unremarkable. No evidence for hilar prominence. Degenerative changes dorsal spine. IMPRESSION: 1. Basilar atelectasis and/or infiltrates noted.
[2020-04-28 11:44] LABS: Glucose,Whole Blood 171 mg/dL (75-99)
[2020-04-28] MEDS: FUROSEMIDE 10 MG/ML 4 ML VIAL IV SCH (11:46)
--- NOTE | 2020-04-28 11:58 | P.CNPUL ---
History of Present Illness Consult date: 04/28/20 Reason for consult: COPD History of present illness: 64-year-old female patient, morbidly obese with a BMI of 43.9 also known history of COPD who has been followed up in our office in regards to her COPD. The patient came in for increased swelling in lower extremities along with cellulitis. Doppler of the lower extremity is been negative. She smokes one pack of cigarettes a day. He is known to have COPD. This morning she was found to be a bit more short of breath and she wason oxygen at 4 L per minute nasal cannula and she was bringing up some increased sputum and she was bronchospastic. She was started on IV Solu-Medrol by the medical team and pulmonary consultation was requested. Her IV fluids has been stopped and the patient was also started on Lasix 40 mg by mouth daily. She is on IV antibiotics patient is doing well. No specific complaints. Coronavirus Covid 19 testing was also ordered although my overall suspicion for this type of an infection is low. The patient currently is on IV cefepime and vancomycin.. The patient is currently on Lasix 40 mg IV push every 24 hours. Review of Systems Constitutional: Denies chills, Denies fever Eyes: denies as per HPI, denies blurred vision, denies bulging eye, denies decreased vision, denies diplopia, denies discharge, denies dry eye, denies irritation, denies itching, denies pain, denies photophobia, denies loss of peripheral vision, denies loss of vision, denies tunnel vision/blind spots Ears: deny: decreased hearing, ear discharge, earache, tinnitus Ears, nose, mouth and throat: Denies headache, Denies sore throat Breasts: absent: as per HPI, change in shape, gynecomastia, masses, nipple discharge, pain, skin changes, swelling Cardiovascular: Reports decreased exercise tolerance, Reports dyspnea on exertion Respiratory: Reports cough, Reports dyspnea Gastrointestinal: Reports as per HPI Genitourinary: Reports as per HPI Menstruation: Reports as per HPI Musculoskeletal: Reports as per HPI Musculoskeletal: bilateral: ankle swelling, absent: ankle pain, ankle stiffness Integumentary: Reports as per HPI, Reports color changes (Cellulitis of the lower extremities bilaterally) Neurological: Reports as per HPI Psychiatric: Reports as per HPI Endocrine: Reports as per HPI Hematologic/Lymphatic: Reports as per HPI Allergic/Immunologic: Reports as per HPI Past Medical History Past Medical History: Asthma, COPD, Diabetes Mellitus, Fibromyalgia, AUDIE D/Reflux, Hypertension, Osteoarthritis (OA), Pneumonia, Pulmonary Embolus (PE), Skin Disorder, Thyroid Disorder Additional Past Medical History / Comment(s): Cervical disc disease/stenosis, scoliosis, wears back brace, recently having numbness/tingling L side of face/neck, recently saw fern gatherer for L hemidiaphragmatic elevation-pt states she was told this was probably genetic, recently bronchitis and past bronchitis, pt states recent med change (water pill) d/t electrolyte problem/kidney function being affected, pt states she has had pulmonary emboli, past bilateral lower extremity cellulitis, edema lower extremities, IBS, hemorrhoids, benign colon polyps, sinus problems, UTIs, bacteremia/sepsis, cardiac murmur, past L ankle and L wrist fractures. History of Any Multi-Drug Resistant Organisms: None Reported Past Surgical History: Adenoidectomy, Section, Cholecystectomy, Hysterectomy, Tonsillectomy Additional Past Surgical History / Comment(s): EGD, colonoscopies, gastric bypass, surgery for deviated septum Past Anesthesia/Blood Transfusion Reactions: Previous Problems w/ Anesthesia Additional Past Anesthesia/Blood Transfusion Reaction / Comment(s): itching, some kind of problem after gastric bypass-not sure what happened Past Psychological History: Anxiety, Bipolar, Depression Additional Psychological History / Comment(s): Pt resides with her spouse. They have a cat. She states her depression is not an issue. She states her anxiety and panic attacks are severe. She wears a back brace when up. She drives. Smoking Status: Current every day smoker Past Alcohol Use History: None Reported Additional Past Alcohol Use History / Comment(s): Pt states she has no idea at what age she began smoking. She states she has quit many times over the years but is currently smoking. Past Drug Use History: None Reported - Past Family History Mother Family Medical History: Congestive Heart Failure (CHF), Hypertension Father Additional Family Medical History / Comment(s): Father at the age of 45 yrs d/t having had rheumatic fever as a child and heart valve disease. Medications and Allergies Home Medications Medication Instructions Recorded Confirmed Type Divalproex [Depakote] 500 mg PO TID 12/17/13 04/26/20 History Gabapentin [Neurontin] 800 mg PO TID 12/17/13 04/26/20 History Montelukast [Singulair] 10 mg PO HS 12/17/13 04/26/20 History busPIRone HCL [Buspar] 30 mg PO BID 12/17/13 04/26/20 History lamoTRIgine [LaMICtal] 100 mg PO BID 12/17/13 04/26/20 History lisinopriL [Zestril] 20 mg PO DAILY 12/17/13 04/26/20 History Albuterol Sulfate [Proair Hfa] 2 puff INHALATION RT-Q6H PRN 05/07/18 04/26/20 History Cyclobenzaprine [Flexeril] 10 mg PO BID 06/01/19 04/26/20 History Fluticasone Propion/Salmeterol 1 puff INHALATION RT-BID 06/01/19 04/26/20 History [Wixela 250-50 Inhub] PARoxetine [Paxil] 20 mg PO DAILY 06/01/19 04/26/20 History Levothyroxine Sodium [Synthroid] 150 mcg PO DAILY 03/29/20 04/26/20 History Mupirocin 2% Oint [Bactroban 2% 1 applic TOPICAL BID 03/29/20 04/26/20 History Oint] amLODIPine [Norvasc] 5 mg PO DAILY #30 tab 04/01/20 04/26/20 Rx SILVER sulfADIAZINE CREAM 1 applic TOPICAL BID 04/26/20 04/26/20 History [Silvadene Cream] Allergies Allergy/AdvReac Type Severity Reaction Status Date / Time codeine Allergy Unknown Verified 04/26/20 16:14 Childhood Penicillins Allergy Rash/Hives Verified 04/26/20 16:14 Sulfa (Sulfonamide Allergy Rash/Hives Verified 04/26/20 16:14 Antibiotics) Physical Exam Vitals: Vital Signs Temp Pulse Resp BP Pulse Ox 04/28/20 08:45 19 04/28/20 06:13 94 L 04/28/20 04:04 98.3 F 71 18 145/67 92 L 04/27/20 20:28 98.5 F 78 17 144/66 94 L 04/27/20 19:38 92 L 04/27/20 16:00 20 Intake and Output 04/27/20 04/28/20 04/28/20 22:59 06:59 14:59 Intake Total 2490 1310 Balance 2490 1310 Intake: Intake, IV Titration 900 720 Amount Cefepime 1 gm In Sodium 100 100 Chloride 0.9% 50 ml @ 12. 5 mls/hr IVPB Q12HR [facility] Rx#:[id number] Sodium Chloride 0.9% 1, 300 120 000 ml @ 75 mls/hr IV . [id number] [facility] Rx#:[id number] Vancomycin 1,750 mg In 500 500 Sodium Chloride 0.9% 500 ml 500 ml @ 167 mls/hr IVPB Q12H [facility] Rx#: [id number] Oral 1590 590 Other: Voiding Method Toilet # Voids 1 1 No acute distress, oriented 3. Head exam was generally normal. There was no scleral icterus or corneal arcus. Mucous membranes were moist. HEENT examination is grossly unremarkable. Mucous membranes are moist. No oral lesions. Neck supple. Full range of motion. No adenopathy thyromegaly or neck vein distention. Cardiovascular examination reveals regular rhythm rate. S1-S2 normal. No S3 or S4. No discernible murmur noted. Lungs reveal clear breath sounds. Her sounds are equal bilaterally. No adventitious lung sounds including wheezes rhonchi or crackles. The breast on that in general diminished in lung bases bilaterally. Abdomen soft bowel sounds are heard. No masses or tenderness. Extremities are intact. The patient has exceeded lower extremity edema cigarettes lower extremity is bilaterally, no cyanosis or clubbing. No open wounds or sores. Skin selected a lower extremities bilaterally Neurologic Neurologically, the patient is awake and alert and the patient does not have any focal neurological deficit. Cranial nerves are essentially intact. Results - Laboratory Findings CBC and BMP: 04/28/20 06:01 04/28/20 06:01 PT/INR, D-dimer PT 9.4 sec (9.0-12.0) 04/26/20 14:24 INR 0.9 (<1.2) 04/26/20 14:24 Abnormal lab findings: Abnormal Labs 04/26/20 04/27/20 04/27/20 14:24 03:19 07:05 Lymphocytes # Sodium 129 L Chloride 91 L Carbon Dioxide 34 H 32.5 H BUN 8.0 L Glucose POC Glucose (mg/dL) 74 L Total Protein 6.0 L Ur Leukocyte Esterase Urine Mucus 04/27/20 04/27/20 04/27/20 07:30 11:17 11:36 Lymphocytes # Sodium Chloride Carbon Dioxide BUN Glucose POC Glucose (mg/dL) 68 L 68 L Total Protein Ur Leukocyte Esterase Small H Urine Mucus Rare H 04/27/20 04/27/20 04/27/20 12:02 17:01 20:30 Lymphocytes # Sodium Chloride Carbon Dioxide BUN Glucose POC Glucose (mg/dL) 136 H 120 H 162 H Total Protein Ur Leukocyte Esterase Urine Mucus 04/28/20 04/28/20 04/28/20 02:25 06:01 06:01 Lymphocytes # 0.5 L Sodium 134 L Chloride 95 L Carbon Dioxide BUN Glucose 128 H POC Glucose (mg/dL) 126 H Total Protein Ur Leukocyte Esterase Urine Mucus 04/28/20 04/28/20 07:09 11:07 Lymphocytes # Sodium Chloride Carbon Dioxide BUN Glucose POC Glucose (mg/dL) 126 H 171 H Total Protein Ur Leukocyte Esterase Urine Mucus Assessment and Plan Plan: 1 cellulitis of lower extremities bilaterally along with increased edema cur rently on accommodation diuretics and antibiotics. The patient is receiving a combination of cefepime and vancomycin. The patient is also on Lasix. Doppler of the lower extremity has been negative 2 COPD with possibly a component of COPD exacerbation, currently feeling better and less bronchospastic and wheezy on a combination of bronchodilators and steroids. 3 obesity with a BMI 43.9 4 diabetes mellitus 5 hypertension 6 hypothyroidism 7 scoliosis of the spine 8 osteoarthritis 9 fibromyalgia 10 IV as in history of hemorrhoids and colonic polyps Plan Agree on the current treatment Continue antibiotics Continue diuretics Taper steroids as of tomorrow We'll continue to follow
[2020-04-28] MEDS: IPRATROPIUM-ALBUTEROL 3 ML NEB INHALATION PRN ×2 (15:54→21:27)
[2020-04-28 17:07] LABS: Glucose,Whole Blood 177 mg/dL (75-99)
[2020-04-28] MEDS: HYDROcodone/APAP 5-325MG 1 EACH TAB PO PRN (17:20)
[2020-04-28 19:40] LABS: Glucose,Whole Blood 180 mg/dL (75-99)
[2020-04-28] MEDS: MONTELUKAST 10 MG TAB PO SCH (21:32)
[2020-04-29] MEDS: methylPREDNISolone SOD SUCCI 40 MG/ML 1 ML VIAL IV SCH ×3 (00:14→12:34)
[2020-04-29] MEDS: HEPARIN SODIUM,PORCINE 5,000 UNIT/ML 1 ML VIAL SQ SCH ×3 (00:14→17:50)
[2020-04-29] MEDS: HYDROcodone/APAP 5-325MG 1 EACH TAB PO PRN ×2 (01:24→21:11)
[2020-04-29 04:47] LABS: Basophils % (A) 0 %; Eosinophils % (A) 0 %; HCT 39.1 % (34.0-46.0); HGB 12.2 gm/dL (11.4-16.0); Lymphocytes # (A) 0.4 k/uL (1.0-4.8); Lymphocytes % (A) 4 %; MCH 29.5 pg (25.0-35.0); MCHC 31.3 g/dL (31.0-37.0); MCV 94.2 fL (80.0-100.0); Monocytes # (A) 0.5 k/uL (0-1.0); Monocytes % (A) 5 %; Neutrophils # (A) 10.7 k/uL (1.3-7.7); Neutrophils % (A) 92 %; Platelet Count 174 k/uL (150-450); RBC 4.15 m/uL (3.80-5.40); WBC 11.7 k/uL (3.8-10.6)
[2020-04-29] MEDS ORDERED: VANCOMYCIN TROUGH DUE 1 EACH MISC MISCELLANE ONE (05:00)
[2020-04-29] MEDS: VANCOMYCIN 1,750 MG in SODIUM CHLORIDE 0.9% 500 ML 500 ML IVPB SCH (05:57)
[2020-04-29] MEDS: LEVOTHYROXINE 75 MCG TAB PO SCH (05:57)
[2020-04-29 07:01] LABS: Glucose,Whole Blood 160 mg/dL (75-99)
[2020-04-29] MEDS: SYMBICORT 80-4.5 MCG INHALER INHALATION SCH ×2 (07:24→20:34)
[2020-04-29] MEDS: IPRATROPIUM-ALBUTEROL 3 ML NEB INHALATION PRN ×3 (07:24→20:34)
[2020-04-29] MEDS: FUROSEMIDE 10 MG/ML 4 ML VIAL IV SCH (08:03)
[2020-04-29] MEDS: GABAPENTIN 400 MG CAP PO SCH ×3 (08:03→21:10)
[2020-04-29] MEDS: FAMOTIDINE 20 MG/2 ML VIAL IV SCH (08:03)
[2020-04-29] MEDS: NICOTINE 21MG/24HR PATCH TRANSDERM SCH (08:04)
[2020-04-29] MEDS: DIVALPROEX 500 MG TABLET.DR PO SCH ×3 (08:04→21:10)
[2020-04-29] MEDS: lisinopriL 20 MG TAB PO SCH (08:04)
[2020-04-29] MEDS: lamoTRIgine 100 MG TAB PO SCH ×2 (08:04→21:38)
[2020-04-29] MEDS: INSULIN ASPART (NovoLOG) 100 UNIT/ML VIAL SQ SCH ×4 (08:04→21:10)
[2020-04-29] MEDS: amLODIPine 5 MG TAB PO SCH (08:04)
[2020-04-29] MEDS: busPIRone HCl 10 MG TAB PO SCH ×2 (08:04→21:10)
[2020-04-29] MEDS: CYCLOBENZAPRINE 10 MG TAB PO SCH ×2 (08:04→21:11)
[2020-04-29] MEDS: PARoxetine 20 MG TAB PO SCH (08:05)
[2020-04-29] MEDS: MUPIROCIN 2% OINT 22 GM TUBE TOPICAL SCH ×2 (08:05→21:17)
[2020-04-29] MEDS: CEFEPIME 1 GM in SODIUM CHLORIDE 0.9% 50 ML IVPB SCH ×2 (10:19→21:37)
[2020-04-29 10:22] LABS: African American GFR (CKD) 91.6 (60.0-200.0); Anion Gap 5.5 mmol/L (4.00-12.00); BUN/Creat Ratio 21.25 Ratio (12.00-20.00); Calcium 9.3 mg/dL (8.7-10.3); Carbon Dioxide 30.5 mmol/L (21.6-31.8); Potassium 4.5 mmol/L (3.5-5.5)
--- NOTE | 2020-04-29 11:00 | ECHOF ---
Referral Reason:Rule out heart disease MEASUREMENTS -------- HEIGHT: 152.4 cm WEIGHT: 102.1 kg BP: 159/69 RVIDd: 3.6 cm (< 3.3) IVSd: 1.5 cm (0.6 - 1.1) LVIDd: 4.2 cm (3.9 - 5.3) LVPWd: 1.7 cm (0.6 - 1.1) IVSs: 1.8 cm LVIDs: 2.7 cm LVPWs: 1.7 cm LAESV Index (A-L): 51.94 ml/m Ao Diam: 3.4 cm (2.0 - 3.7) AV Cusp: 2.1 cm (1.5 - 2.6) MV EXCURSION: 17.586 mm (> 18.000) MV EF SLOPE: 71 mm/s (70 - 150) EPSS: 0.7 cm MV E Lorne: 0.72 m/s MV DecT: 159 ms MV A Lorne: 0.79 m/s MV E/A Ratio: 0.91 RAP: 5.00 mmHg RVSP: 27.49 mmHg FINDINGS -------- Sinus rhythm. This was a technically difficult study with suboptimal views. The left ventricular size is normal. There is moderate concentric left ventricular hypertrophy. O verall left ventricular systolic function is normal with, an EF between 55 - 60 %. The right ventricle is mildly enlarged. LA is severely dilated >40 ml/m2 The right atrium was not well visualized. 5.0mg of Lumason was utilized for enhancement of images Interatrial and interventricular septum intact. There is mild aortic valve sclerosis. There is no evidence of aortic regurgitation. There is no e vidence of aortic stenosis. The mitral valve was not well visualized. Mild mitral regurgitation is present. Mild tricuspid regurgitation present. There is no evidence of pulmonary hypertension. The right v entricular systolic pressure, as measured by Doppler, is 27.49mmHg. The pulmonic valve was not well visualized. There is no pulmonic regurgitation present. The aortic root size is normal. IVC Not well visulized. There is no pericardial effusion. CONCLUSIONS -------- 1. There is moderate concentric left ventricular hypertrophy. 2. Overall left ventricular systolic function is normal with, an EF between 55 - 60 %. 3. The right ventricle is mildly enlarged. 4. LA is severely dilated >40 ml/m2 5. There is mild aortic valve sclerosis. 6. Mild mitral regurgitation is present. 7. Mild tricuspid regurgitation present. 8. The pulmonic valve was not well visualized. 9. There is no pericardial effusion. SENIOR NATIONAL ACCOUNT MANAGER: Kayley Franco RDCS
[2020-04-29 11:20] LABS: Glucose,Whole Blood 162 mg/dL (75-99)
--- NOTE | 2020-04-29 12:34 | P.PN ---
Subjective Progress Note Date: 04/29/20 Principal diagnosis: Bilateral lower extremity cellulitis, COPD, with mild exacerbation 64-year-old female patient, morbidly obese with a BMI of 43.9 also known history of COPD who has been followed up in our office in regards to her COPD. The patient came in for increased swelling in lower extremities along with cellulitis. Doppler of the lower extremity is been negative. She smokes one pack of cigarettes a day. He is known to have COPD. This morning she was found to be a bit more short of breath and she wason oxygen at 4 L per minute nasal cannula and she was bringing up some increased sputum and she was bronchospastic. She was started on IV Solu-Medrol by the medical team and pulmonary consultation was requested. Her IV fluids has been stopped and the patient was also started on Lasix 40 mg by mouth daily. She is on IV antibiotics patient is doing well. No specific complaints. Coronavirus Covid 19 testing was also ordered although my overall suspicion for this type of an infection is low. The patient currently is on IV cefepime and vancomycin.. The patient is currently on Lasix 40 mg IV push every 24 hours. On 04/29/2020 ration is seen in follow-up on general medical surgical floor, she sits up in the recliner, in no acute distress, she is on IV antibiotics for lower extremity cellulitis, lower extremities are wrapped with dressings, still swollen and warm to touch, ID service is following, no worsening dyspnea, patient is breathing easier, hardly any wheezing on today's exam, 2 L of oxygen patient sat 95%, afebrile. No significant cough or congestion, patient is on nebulized bronchodilators, she is on IV steroids to 60 mg every 6 hours, once daily dose of Lasix, and Symbicort. Pneumatic coverage is in the form of vancomycin and cefepime. Today's labs have been reviewed, showing white blood cell count of 11.7, hemoglobin of 12.2, sodium is 1:30, potassium is 4.5, chloride is 94, B1 17 creatinine 0.8. Objective - Vital Signs Vital signs: Vital Signs Temp 98 F 04/29/20 12:07 Pulse 72 04/29/20 12:07 Resp 17 04/29/20 12:07 BP 165/66 04/29/20 12:07 Pulse Ox 95 04/29/20 12:07 Intake & Output 04/28/20 04/29/20 04/29/20 18:59 06:59 18:59 Intake Total 1140 Output Total 650 Balance 490 Intake: Intake, IV Titration 550 Amount Cefepime 1 gm In Sodium 50 Chloride 0.9% 50 ml @ 12. 5 mls/hr IVPB Q12HR [facility] Rx#:[id number] Vancomycin 1,750 mg In 500 Sodium Chloride 0.9% 500 ml 500 ml @ 167 mls/hr IVPB Q12H [facility] Rx#: [id number] Oral 590 Output: Urine 650 Straight 650 Other: Voiding Method Toilet Toilet Bedside Commode # Voids 3 1 - Exam GENERAL EXAM: Alert, very pleasant, 64-year-old obese white female, on 2 L of oxygen the pulse ox 95%, comfortable in no apparent distress. HEAD: Normocephalic/atraumatic. EYES: Normal reaction of pupils, equal size. Conjunctiva pink, sclera white. NOSE: Clear with pink turbinates. THROAT: No erythema or exudates. NECK: No masses, no JVD, no thyroid enlargement, no adenopathy. CHEST: No chest wall deformity. Symmetrical expansion. LUNGS: Diminished air entry with minimal wheezing CVS: Regular rate and rhythm, normal S1 and S2, no gallops, no murmurs, no rubs ABDOMEN: Soft, nontender. No hepatosplenomegaly, normal bowel sounds, no guarding or rigidity. EXTREMITIES: No clubbing, lower extremity edema, and warmth and redness to touch, both legs are covered with dressings, no cyanosis, 2+ pulses and upper and lower extremities. MUSCULOSKELETAL: Muscle strength and tone normal. SPINE: No scoliosis or deformity SKIN: No rashes CENTRAL NERVOUS SYSTEM: Alert and oriented -3. No focal deficits, tone is normal in all 4 extremities. PSYCHIATRIC: Alert and oriented -3. Appropriate affect. Intact judgment and insight. - Labs CBC & Chem 7: 04/29/20 04:31 04/29/20 04:31 Labs: Abnormal Lab Results - Last 24 Hours (Table) 04/28/20 04/28/20 04/29/20 Range/Units 17:06 19:38 04:31 WBC 11.7 H (3.8-10.6) k/uL Neutrophils # 10.7 H (1.3-7.7) k/uL Lymphocytes # 0.4 L (1.0-4.8) k/uL Sodium (135-145) mmol/L Chloride (96-109) mmol/L BUN/Creatinine Ratio (12.00-20.00) Ratio Glucose (70-110) mg/dL POC Glucose (mg/dL) 177 H 180 H (75-99) mg/dL 04/29/20 04/29/20 04/29/20 Range/Units 04:31 07:00 11:19 WBC (3.8-10.6) k/uL Neutrophils # (1.3-7.7) k/uL Lymphocytes # (1.0-4.8) k/uL Sodium 130 L (135-145) mmol/L Chloride 94 L (96-109) mmol/L BUN/Creatinine Ratio 21.25 H (12.00-20.00) Ratio Glucose 220 H (70-110) mg/dL POC Glucose (mg/dL) 160 H 162 H (75-99) mg/dL Microbiology - Last 24 Hours (Table) 04/26/20 14:24 Blood Culture - Preliminary Blood No Growth after 48 hours 04/28/20 06:31 Gram Stain - Preliminary Sputum Sputum Culture - Preliminary Assessment and Plan Plan: Assessment: 1 cellulitis of lower extremities bilaterally along with increased edema currently on accommodation diuretics and antibiotics. The patient is receiving a combination of cefepime and vancomycin. The patient is also on Lasix. Doppler of the lower extremity has been negative 2 COPD with possibly a component of COPD exacerbation, currently feeling better and less bronchospastic and wheezy on a combination of bronchodilators and steroids. 3 obesity with a BMI 43.9 4 diabetes mellitus 5 hypertension 6 hypothyroidism 7 scoliosis of the spine 8 osteoarthritis 9 fibromyalgia 10 IV as in history of hemorrhoids and colonic polyps Plan: Continue with antibiotics per ID service recommendations, from pulmonary perspective patient's breathing is improving, less dyspneic and wheezy, continue steroids, and bronchodilators, continue diuretics, decrease the IV steroids to 40 mg every 12 hours. From pulmonary perspective her breathing is pretty close to her baseline, continue tapering steroids and possibly switch her over to oral prednisone tomorrow. Stable from pulmonary perspective, we'll follow on as- needed basis. I performed a history & physical examination of the patient and discussed their management with my nurse practitioner, Smita Santiago. I reviewed the nurse practitioner's note and agree with the documented findings and plan of care. Lung sounds are positive for minimal wheezing. The findings and the impression was discussed with the patient. I attest to the documentation by the nurse practitioner. Time with Patient: Less than 30
--- NOTE | 2020-04-29 13:01 | P.PN ---
Subjective Progress Note Date: 04/29/20 Principal diagnosis: Cellulitis Patient was seen and examined at the bedside. The patient is resting comfortably. He has bilateral lower extremity cellulitis with Kerlix wrap and Gen wraps. She denies any acute changes through the night. She's been afebrile. Objective - Vital Signs Vital signs: Vital Signs Temp 98 F 04/29/20 12:07 Pulse 72 04/29/20 12:07 Resp 17 04/29/20 12:07 BP 165/66 04/29/20 12:07 Pulse Ox 95 04/29/20 12:07 Intake & Output 04/28/20 04/29/20 04/29/20 18:59 06:59 18:59 Intake Total 1140 Output Total 650 Balance 490 Intake: Intake, IV Titration 550 Amount Cefepime 1 gm In Sodium 50 Chloride 0.9% 50 ml @ 12. 5 mls/hr IVPB Q12HR [facility] Rx#:[id number] Vancomycin 1,750 mg In 500 Sodium Chloride 0.9% 500 ml 500 ml @ 167 mls/hr IVPB Q12H [facility] Rx#: [id number] Oral 590 Output: Urine 650 Straight 650 Other: Voiding Method Toilet Toilet Bedside Commode # Voids 3 1 - Exam General appearance: The patient is alert, oriented, in no acute distress. HET: Head is normocephalic and atraumatic. Neck: Supple without lymphadenopathy. Trachea midline. Extremities: Bilateral lower extremities with Kerlix and Gen wraps. Palpable DP pulses bilaterally, mild pedal edema. Patient is able to freely move bilateral feet and toes. Good capillary refill. Neurological: No focal deficits. Strength and sensation are grossly intact. - Labs CBC & Chem 7: 04/29/20 04:31 04/29/20 04:31 Labs: Abnormal Lab Results - Last 24 Hours (Table) 04/28/20 04/28/20 04/29/20 Range/Units 17:06 19:38 04:31 WBC 11.7 H (3.8-10.6) k/uL Neutrophils # 10.7 H (1.3-7.7) k/uL Lymphocytes # 0.4 L (1.0-4.8) k/uL Sodium (135-145) mmol/L Chloride (96-109) mmol/L BUN/Creatinine Ratio (12.00-20.00) Ratio Glucose (70-110) mg/dL POC Glucose (mg/dL) 177 H 180 H (75-99) mg/dL 04/29/20 04/29/20 04/29/20 Range/Units 04:31 07:00 11:19 WBC (3.8-10.6) k/uL Neutrophils # (1.3-7.7) k/uL Lymphocytes # (1.0-4.8) k/uL Sodium 130 L (135-145) mmol/L Chloride 94 L (96-109) mmol/L BUN/Creatinine Ratio 21.25 H (12.00-20.00) Ratio Glucose 220 H (70-110) mg/dL POC Glucose (mg/dL) 160 H 162 H (75-99) mg/dL Microbiology - Last 24 Hours (Table) 04/26/20 14:24 Blood Culture - Preliminary Blood No Growth after 48 hours 04/28/20 06:31 Gram Stain - Preliminary Sputum Sputum Culture - Preliminary Assessment and Plan Assessment: #1 bilateral lower extremity synovitis #2 bilateral lower extremity edema #3 COPD #4 tobacco abuse Plan: Bilateral lower extremity edema causing cellulitis. At this time continue elevation, antibiotics and wraps for her lower extremities have decreased edema. No vascular surgical intervention indicated. Discussed with patient that we recommend 20-30 mmHg compression stockings daily and stocking curly to assist with putting stockings on. We will sign off at this time. The impression and plan of care has been dictated as directed. I performed a history and examination of this patient, discussed the same with the dictator. I agree with the dictator's note ,documented as a scribe. Any additional findings or plans will be noted.
--- NOTE | 2020-04-29 14:13 | P.PN ---
Subjective this is a pleasant 62 years old female with past medical history of cellulitis of the lower extremity was been recently discharged from the hospital on ciprofloxacin, no other chronic medical illnesses including GERD, hypertension, history of PE in the past and hypothyroidism and chronic low back pain patient was recently discharged from the hospital from 911-4 for Pseudomonas cellulitis of the both legs. Patient is complaining from bilateral lower extremity redness and swelling for 6 month, it became hard and more heavy for the last month, she went to see her PCP Dr. Wheeler yesterday who referred her to the hospital. Patient smokes about 1 pack per day, she has history of COPD and follow-up with Dr. Brannon. This morning she needed 4 L of oxygen, chest diminished air entry on both sides and she is In with yellow phlegm. her glucose was 60 this morning, however patient is eating well, she is not diabetic and not on insulin patient is afebrile and vitals are stable.sodium was 129 on admission, came back. Sodium was 129 on admission came back to normal at 135, CBC, BMP, liver enzymes and urinalysis were unremarkable with no source of infection. on admission patient was given 1 dose of ceftriaxone,and started on IV vancomycin. 04/28/2020 Patient is awake and alert today, she feels that her both legs are improving however they are still swollen. They are wrapped in a dressing and Gen wrap. Doppler of the lower extremity was negative for DVT. She remains on cefepime and IV vancomycin. Infectious disease on the case, Echocardiogram is pending for bilateral leg swelling. IV fluids was stopped. We'll start the patient on Lasix 40 mg once a day. She still has chest tightness with occasional coughing. On examination she has decreased air entry, she is on Solu-Medrol 60 mg and breathing treatment. She is not on home oxygen and currently she is saturating 94% and 2 L oxygen via nasal cannula. Chest x-ray and covid test is ordered as well as pulmonary consult 04/29/2020 Patient is awake and alert. Her breathing is better today, her Solu-Medrol this tapered down to 40 mg twice daily and pulmonary input is appreciated She still been treated with broad-spectrum antibiotics for bilateral lower extremity cellulitis with gradual response. Patient is afebrile and no leukocytosis Patient is afebrile with mild leukocytosis probably due to the steroid effect. WBC was normal for the first 3 days. Sodium 1:30 Review of Systems CONSTITUTIONAL: No fever, no malaise, no fatigue. HEENT: No recent visual problems or hearing problems. Denied any sore throat. CARDIOVASCULAR: No orthopnea, PND, no palpitations, no syncope. PULMONARY: No chest wall tenderness, no hemoptysis. GASTROINTESTINAL: No diarrhea, no nausea, no vomiting, no abdominal pain. Normoactive bowel sounds. Active Medications Generic Name Dose Route Start Last Admin Trade Name Freq PRN Reason Stop Dose Admin Hydrocodone Bitart/Acetaminophen 1 each 04/26/20 15:40 04/27/20 18:37 Hydrocodone/Apap 5-325mg 1 Each Tab PO 1 each Q4HR PRN Administration Moderate Pain Albuterol/Ipratropium 3 ml 04/27/20 12:06 Ipratropium-Albuterol 3 Ml Neb INHALATION RT-QID PRN Shortness Of Breath Or Wheezing Amlodipine Besylate 5 mg 04/27/20 09:00 04/28/20 09:15 Amlodipine 5 Mg Tab PO 5 mg DAILY JEIMY Administration Budesonide/Formoterol Fumarate 2 puff 04/26/20 20:00 04/28/20 07:52 Symbicort 80-4.5 Mcg Inhaler INHALATION 2 puff RT-BID JEIMY Administration Buspirone HCl 30 mg 04/26/20 21:00 04/28/20 09:15 Buspirone Hcl 10 Mg Tab PO 30 mg BID JEIMY Administration Cyclobenzaprine HCl 10 mg 04/26/20 21:00 04/28/20 09:14 Cyclobenzaprine 10 Mg Tab PO 10 mg BID JEIMY Administration Divalproex Sodium 500 mg 04/26/20 22:00 04/28/20 09:15 Divalproex 500 Mg Tablet.Dr PO 500 mg TID JEIMY Administration Famotidine 20 mg 04/27/20 21:00 04/28/20 09:15 Famotidine 20 Mg/2 Ml Vial IV 20 mg Q12HR JEIMY Administration Gabapentin 800 mg 04/26/20 22:00 04/28/20 09:14 Gabapentin 400 Mg Cap PO 800 mg TID JEIMY Administration Heparin Sodium (Porcine) 5,000 unit 04/27/20 16:00 04/28/20 09:24 Heparin Sodium,Porcine 5,000 Unit/Ml 1 Ml Vial SQ 5,000 unit Q8HR JEIMY Administration Vancomycin HCl 1,750 mg/ 500 mls @ 167 mls/hr 04/27/20 06:00 04/28/20 06:08 Sodium Chloride IVPB 167 mls/hr Q12H JEIMY Administration Cefepime HCl 1 gm/ Sodium 50 mls @ 12.5 mls/hr 04/27/20 13:00 04/28/20 09:16 Chloride IVPB 12.5 mls/hr Q12HR JEIMY Administration Insulin Aspart 0 unit 04/26/20 21:00 04/28/20 08:54 Insulin Aspart (Novolog) 100 Unit/Ml Vial SQ Not Given ACHS JEIMY Protocol Lamotrigine 100 mg 04/26/20 21:00 04/28/20 09:24 Lamotrigine 100 Mg Tab PO 100 mg BID JEIMY Administration Levothyroxine Sodium 150 mcg 04/27/20 06:30 04/28/20 06:04 Levothyroxine 75 Mcg Tab PO 150 mcg DAILY@0630 JEIMY Administration Lisinopril 20 mg 04/27/20 09:00 04/28/20 09:24 Lisinopril 20 Mg Tab PO 20 mg DAILY JEIMY Administration Methylprednisolone Sodium Succinate 60 mg 04/27/20 23:15 04/28/20 06:04 Methylprednisolone Sod Succi 40 Mg/Ml 1 Ml Vial IV 60 mg Q6H JEIMY Administration Miscellaneous Information 0 each 04/29/20 05:00 Vancomycin Trough Due 1 Each Misc MISCELLANE 04/29/20 05:01 DIRECTED ONE Montelukast Sodium 10 mg 04/26/20 21:00 04/27/20 21:04 Montelukast 10 Mg Tab PO 10 mg HS JEIMY Administration Mupirocin 1 applic 04/26/20 21:00 04/28/20 09:14 Mupirocin 2% Oint 22 Gm Tube TOPICAL 1 applic BID JEIMY Administration Naloxone HCl 0.2 mg 04/26/20 15:40 Naloxone 0.4 Mg/Ml 1 Ml Vial IV Q2M PRN Opioid Reversal Nicotine 1 patch 04/27/20 23:15 04/28/20 09:14 Nicotine 21mg/24hr Patch TRANSDERM 1 patch DAILY JEIMY Administration Ondansetron HCl 4 mg 04/26/20 15:40 Ondansetron 4 Mg/2 Ml Vial IVP Q8HR PRN Nausea And Vomiting Paroxetine HCl 20 mg 10/10/20 09:00 04/28/20 09:14 Paroxetine 20 Mg Tab PO 20 mg DAILY JEIMY Administration Silver Sulfadiazine 1 applic 04/26/20 21:00 04/28/20 09:14 Silver Sulfadiazine 1% Cream 25 Gm Tube TOPICAL 1 applic BID JEIMY Administration Objective - Vital Signs Vital signs: Vital Signs Temp 98 F 04/29/20 12:07 Pulse 72 04/29/20 12:07 Resp 17 04/29/20 12:07 BP 165/66 04/29/20 12:07 Pulse Ox 95 04/29/20 12:07 Intake & Output 04/28/20 04/29/20 04/29/20 18:59 06:59 18:59 Intake Total 1140 Output Total 650 Balance 490 Intake: Intake, IV Titration 550 Amount Cefepime 1 gm In Sodium 50 Chloride 0.9% 50 ml @ 12. 5 mls/hr IVPB Q12HR [facility] Rx#:[id number] Vancomycin 1,750 mg In 500 Sodium Chloride 0.9% 500 ml 500 ml @ 167 mls/hr IVPB Q12H [facility] Rx#: [id number] Oral 590 Output: Urine 650 Straight 650 Other: Voiding Method Toilet Toilet Bedside Commode # Voids 3 1 - Exam GENERAL: The patient is alert and oriented x3, not in any acute distress. Well developed, well nourished. HEENT: Pupils are round and equally reacting to light. EOMI. No scleral icterus. No conjunctival pallor. Normocephalic, atraumatic. No pharyngeal erythema. No thyromegaly. CARDIOVASCULAR: S1 and S2 present. No murmurs, rubs, or gallops. - PULMONARY: Chest is clear to auscultation, decreased air entry on both sides with scattered wheezing ABDOMEN: Soft, nontender, nondistended, normoactive bowel sounds. No palpable organomegaly. MUSCULOSKELETAL: No joint swelling or deformity. -EXTREMITIES: No cyanosis, clubbing, or pedal edema. both legs are red, swollen and indurated NEUROLOGICAL: Gross neurological examination did not reveal any focal deficits. SKIN: No rashes. no petechiae. - Labs CBC & Chem 7: 04/29/20 04:31 04/29/20 04:31 Labs: Abnormal Lab Results - Last 24 Hours (Table) 04/28/20 04/28/20 04/29/20 Range/Units 17:06 19:38 04:31 WBC 11.7 H (3.8-10.6) k/uL Neutrophils # 10.7 H (1.3-7.7) k/uL Lymphocytes # 0.4 L (1.0-4.8) k/uL Sodium (135-145) mmol/L Chloride (96-109) mmol/L BUN/Creatinine Ratio (12.00-20.00) Ratio Glucose (70-110) mg/dL POC Glucose (mg/dL) 177 H 180 H (75-99) mg/dL 04/29/20 04/29/20 04/29/20 Range/Units 04:31 07:00 11:19 WBC (3.8-10.6) k/uL Neutrophils # (1.3-7.7) k/uL Lymphocytes # (1.0-4.8) k/uL Sodium 130 L (135-145) mmol/L Chloride 94 L (96-109) mmol/L BUN/Creatinine Ratio 21.25 H (12.00-20.00) Ratio Glucose 220 H (70-110) mg/dL POC Glucose (mg/dL) 160 H 162 H (75-99) mg/dL Microbiology - Last 24 Hours (Table) 04/26/20 14:24 Blood Culture - Preliminary Blood No Growth after 48 hours 04/28/20 06:31 Gram Stain - Preliminary Sputum Sputum Culture - Preliminary Assessment and Plan Assessment: -recurrent cellulitis of both lower extremities -hyponatremia, improved -COPD with acute exacerbation -Acute hypoxic respiratory failure -type 2 diabetes mellitus -Fibromyalgia -Gastric reflux disease Hypertension -History of PE in the past -Hypothyroidism -chronic low back pain Plan: this is a pleasant 64 years old female who presents with recurrent cellulitis of the lower extremity.Continue with antibiotics and consult infectious disease, follow-up culture results.start patient on Solu-Medrol, breathing treatment, oxygen as needed. Consult pulmonary service Labs and medication were reviewed.. Continue same treatment. Continue with symptomatic treatment. Resume home medication. Monitor lytes and vitals. DVT and GI prophylaxis. Further recommendationsas per clinical course of the patient DVT prophylaxis: Subcutaneous heparin GI Prophylaxis: Pepcid PT/OT: Pending Prognosis is guarded
[2020-04-29 17:13] LABS: Glucose,Whole Blood 141 mg/dL (75-99)
[2020-04-29] MEDS: VANCOMYCIN 1,500 MG in SODIUM CHLORIDE 0.9% 250 ML IVPB SCH (17:49)
[2020-04-29] MEDS ORDERED: methylPREDNISolone SOD SUCCI 40 MG/ML 1 ML VIAL IV SCH (21:00)
[2020-04-29 21:04] LABS: Glucose,Whole Blood 205 mg/dL (75-99)
[2020-04-29] MEDS: FAMOTIDINE 20 MG TAB PO SCH (21:10)
[2020-04-29] MEDS: MONTELUKAST 10 MG TAB PO SCH (21:38)
[2020-04-30] MEDS: HEPARIN SODIUM,PORCINE 5,000 UNIT/ML 1 ML VIAL SQ SCH ×4 (01:01→23:48)
[2020-04-30 05:17] LABS: Basophils % (A) 0 %; Eosinophils % (A) 0 %; HCT 39.7 % (34.0-46.0); Lymphocytes # (A) 0.6 k/uL (1.0-4.8); Lymphocytes % (A) 5 %; MCH 31.4 pg (25.0-35.0); MCHC 32.6 g/dL (31.0-37.0); MCV 96.3 fL (80.0-100.0); Mean Platelet Volume 6.8; Monocytes # (A) 0.8 k/uL (0-1.0); Monocytes % (A) 7 %; Neutrophils # (A) 10.4 k/uL (1.3-7.7); Neutrophils % (A) 87 %; Platelet Count 158 k/uL (150-450); RBC 4.13 m/uL (3.80-5.40); RDW 12.7 % (11.5-15.5); WBC 11.9 k/uL (3.8-10.6)
[2020-04-30] MEDS: LEVOTHYROXINE 75 MCG TAB PO SCH (05:43)
[2020-04-30] MEDS: VANCOMYCIN 1,500 MG in SODIUM CHLORIDE 0.9% 250 ML IVPB SCH (05:43)
[2020-04-30 07:09] LABS: Glucose,Whole Blood 105 mg/dL (75-99)
[2020-04-30] MEDS: IPRATROPIUM-ALBUTEROL 3 ML NEB INHALATION PRN ×4 (07:49→20:32)
[2020-04-30] MEDS: SYMBICORT 80-4.5 MCG INHALER INHALATION SCH ×2 (07:50→20:32)
[2020-04-30] MEDS: INSULIN ASPART (NovoLOG) 100 UNIT/ML VIAL SQ SCH ×4 (09:20→21:27)
[2020-04-30] MEDS: FAMOTIDINE 20 MG TAB PO SCH ×2 (09:21→21:27)
[2020-04-30] MEDS: lamoTRIgine 100 MG TAB PO SCH ×2 (09:21→21:27)
[2020-04-30] MEDS: busPIRone HCl 10 MG TAB PO SCH ×2 (09:21→21:27)
[2020-04-30] MEDS: DIVALPROEX 500 MG TABLET.DR PO SCH ×3 (09:21→21:28)
[2020-04-30] MEDS: lisinopriL 20 MG TAB PO SCH (09:21)
[2020-04-30] MEDS: CEFEPIME 1 GM in SODIUM CHLORIDE 0.9% 50 ML IVPB SCH (09:21)
[2020-04-30] MEDS: NICOTINE 21MG/24HR PATCH TRANSDERM SCH (09:22)
[2020-04-30] MEDS: CYCLOBENZAPRINE 10 MG TAB PO SCH ×2 (09:22→21:27)
[2020-04-30] MEDS: GABAPENTIN 400 MG CAP PO SCH ×3 (09:22→21:28)
[2020-04-30] MEDS: predniSONE 20 MG TAB PO SCH (09:22)
[2020-04-30] MEDS: amLODIPine 5 MG TAB PO SCH (09:22)
[2020-04-30] MEDS: MUPIROCIN 2% OINT 22 GM TUBE TOPICAL SCH ×2 (09:22→21:27)
[2020-04-30 09:31] LABS: African American GFR (CKD) 113.2 (60.0-200.0); Anion Gap 4.3 mmol/L (4.00-12.00); BUN/Creat Ratio 26.67 Ratio (12.00-20.00); Calcium 9.6 mg/dL (8.7-10.3); Carbon Dioxide 35.7 mmol/L (21.6-31.8); Non-African American GFR(CKD) 97.7 (60.0-200.0); Potassium 4.6 mmol/L (3.5-5.5)
[2020-04-30] MEDS: PARoxetine 20 MG TAB PO SCH (09:32)
[2020-04-30 11:55] LABS: Glucose,Whole Blood 108 mg/dL (75-99)
--- NOTE | 2020-04-30 13:50 | P.PN ---
Subjective this is a pleasant 62 years old female with past medical history of cellulitis of the lower extremity was been recently discharged from the hospital on ciprofloxacin, no other chronic medical illnesses including GERD, hypertension, history of PE in the past and hypothyroidism and chronic low back pain patient was recently discharged from the hospital from 911-4 for Pseudomonas cellulitis of the both legs. Patient is complaining from bilateral lower extremity redness and swelling for 6 month, it became hard and more heavy for the last month, she went to see her PCP Dr. Wheeler yesterday who referred her to the hospital. Patient smokes about 1 pack per day, she has history of COPD and follow-up with Dr. Brannon. This morning she needed 4 L of oxygen, chest diminished air entry on both sides and she is In with yellow phlegm. her glucose was 60 this morning, however patient is eating well, she is not diabetic and not on insulin patient is afebrile and vitals are stable.sodium was 129 on admission, came back. Sodium was 129 on admission came back to normal at 135, CBC, BMP, liver enzymes and urinalysis were unremarkable with no source of infection. on admission patient was given 1 dose of ceftriaxone,and started on IV vancomycin. 04/28/2020 Patient is awake and alert today, she feels that her both legs are improving however they are still swollen. They are wrapped in a dressing and Gen wrap. Doppler of the lower extremity was negative for DVT. She remains on cefepime and IV vancomycin. Infectious disease on the case, Echocardiogram is pending for bilateral leg swelling. IV fluids was stopped. We'll start the patient on Lasix 40 mg once a day. She still has chest tightness with occasional coughing. On examination she has decreased air entry, she is on Solu-Medrol 60 mg and breathing treatment. She is not on home oxygen and currently she is saturating 94% and 2 L oxygen via nasal cannula. Chest x-ray and covid test is ordered as well as pulmonary consult 04/29/2020 Patient is awake and alert. Her breathing is better today, her Solu-Medrol this tapered down to 40 mg twice daily and pulmonary input is appreciated She still been treated with broad-spectrum antibiotics for bilateral lower extremity cellulitis with gradual response. Patient is afebrile and no leukocytosis Patient is afebrile with mild leukocytosis probably due to the steroid effect. WBC was normal for the first 3 days. Sodium 1:30 04/30/2020 patient skip improving regarding her lower extremity, she still on broad- spectrum antibiotics is on vancomycin and cefepime. We will recommendation upon antibiotics. His breathing is improving and she is already cleared for discharge by pulmonary service. Discussed plan of the care of the patient and staff and patient agrees with it Objective - Vital Signs Vital signs: Vital Signs Temp 98.1 F 04/30/20 11:18 Pulse 73 04/30/20 13:37 Resp 20 04/30/20 11:18 BP 160/75 04/30/20 11:18 Pulse Ox 93 L 04/30/20 13:37 Intake & Output 04/29/20 04/30/20 04/30/20 18:59 06:59 18:59 Intake Total 50 500 Balance 50 500 Intake: Intake, IV Titration 50 Amount Cefepime 1 gm In Sodium 50 Chloride 0.9% 50 ml @ 12. 5 mls/hr IVPB Q12HR [facility] Rx#:[id number] Oral 500 Other: Voiding Method Toilet Toilet Bedside Commode Bedside Commode # Voids 4 1 - Exam GENERAL: The patient is alert and oriented x3, not in any acute distress. Well developed, well nourished. HEENT: Pupils are round and equally reacting to light. EOMI. No scleral icterus. No conjunctival pallor. Normocephalic, atraumatic. No pharyngeal erythema. No thyromegaly. CARDIOVASCULAR: S1 and S2 present. No murmurs, rubs, or gallops. - PULMONARY: Chest is clear to auscultation, decreased air entry on both sides with scattered wheezing ABDOMEN: Soft, nontender, nondistended, normoactive bowel sounds. No palpable organomegaly. MUSCULOSKELETAL: No joint swelling or deformity. -EXTREMITIES: No cyanosis, clubbing, or pedal edema. both legs are red, swollen and indurated NEUROLOGICAL: Gross neurological examination did not reveal any focal deficits. SKIN: No rashes. no petechiae. - Labs CBC & Chem 7: 04/30/20 04:51 04/30/20 04:51 Labs: Abnormal Lab Results - Last 24 Hours (Table) 04/29/20 04/29/20 04/30/20 Range/Units 17:12 21:03 04:51 WBC 11.9 H (3.8-10.6) k/uL Neutrophils # 10.4 H (1.3-7.7) k/uL Lymphocytes # 0.6 L (1.0-4.8) k/uL Chloride (96-109) mmol/L Carbon Dioxide (21.6-31.8) mmol/L BUN/Creatinine Ratio (12.00-20.00) Ratio POC Glucose (mg/dL) 141 H 205 H (75-99) mg/dL 04/30/20 04/30/20 04/30/20 Range/Units 04:51 07:06 11:23 WBC (3.8-10.6) k/uL Neutrophils # (1.3-7.7) k/uL Lymphocytes # (1.0-4.8) k/uL Chloride 95 L (96-109) mmol/L Carbon Dioxide 35.7 H (21.6-31.8) mmol/L BUN/Creatinine Ratio 26.67 H (12.00-20.00) Ratio POC Glucose (mg/dL) 105 H 108 H (75-99) mg/dL Microbiology - Last 24 Hours (Table) 04/28/20 06:31 Gram Stain - Final Sputum Sputum Culture - Final Sabrina albicans 04/26/20 14:24 Blood Culture - Preliminary Blood No Growth after 72 hours Assessment and Plan Assessment: -recurrent cellulitis of both lower extremities -hyponatremia, improved -COPD with acute exacerbation -Acute hypoxic respiratory failure -type 2 diabetes mellitus -Fibromyalgia -Gastric reflux disease Hypertension -History of PE in the past -Hypothyroidism -chronic low back pain Plan: this is a pleasant 64 years old female who presents with recurrent cellulitis of the lower extremity.Continue with antibiotics and consult infectious disease, follow-up culture results. continue with prednisone. Pulmonary. The patient for discharge and follow-up as an outpatient Labs and medication were reviewed.. Continue same treatment. Continue with symptomatic treatment. Resume home medication. Monitor lytes and vitals. DVT and GI prophylaxis. Further recommendationsas per clinical course of the charan ent DVT prophylaxis: Subcutaneous heparin GI Prophylaxis: Pepcid PT/OT: Pending Prognosis is guarded
[2020-04-30 17:24] LABS: Glucose,Whole Blood 141 mg/dL (75-99)
[2020-04-30 19:52] LABS: Glucose,Whole Blood 218 mg/dL (75-99)
[2020-04-30] MEDS ORDERED: ALPRAZolam 0.5 MG TAB PO PRN (20:00)
[2020-04-30] MEDS: MONTELUKAST 10 MG TAB PO SCH (21:27)
[2020-04-30] MEDS: HYDROcodone/APAP 5-325MG 1 EACH TAB PO PRN (21:32)
--- NOTE | 2020-04-30 23:03 | P.CONS ---
History of Present Illness - Reason for Consult Consult date: 04/30/20 Bilateral lower extremity cellulitis Requesting physician: Saeed E Sheet - Chief Complaint Bilateral leg swelling and redness x few days - History of Present Illness Patient is a 64-year-old female with a past medical history significant for chronic lower extremity swelling with stasis ulcer and recently a component of wound with secondary cellulitis culture were positive for pseudomonas back in March 2020 that has been treated with the local wound care in oral Cipro patient has not been sent back to the ER by her primary care physician on 04/26/2020 for evaluation of increasing lower extremity swelling and concern for recurrent cellulitis patient this admission did not have any open wound; it off more diffuse swelling to the leg along with redness and pain , the pain to be dull aching and at times will be with intensity 7 out of 10 and no radiation patient denies high-grade fever and no fever has been recorded during this admission, patient did have a normal white count at presentation to the hospital patient did have approximately Doppler was negative for DVT patient has been treated with vancomycin and cefepime infectious disease was consulted today day 5 of her admission, for further management of antibiotic therapy, patient denies having any chest pain and minimal shortness of breath occasional cough no sputum production or hemoptysis and no pleuritic chest pain Review of Systems Positive point has been mentioned in the HPI rest of the systems are negative Past Medical History Past Medical History: Asthma, COPD, Diabetes Mellitus, Fibromyalgia, GERD/Reflux, Hypertension, Osteoarthritis (OA), Pneumonia, Pulmonary Embolus (PE), Skin Disorder, Thyroid Disorder Additional Past Medical History / Comment(s): Cervical disc disease/stenosis, scoliosis, wears back brace, recently having numbness/tingling L side of face/neck, recently saw licensing engineer for L hemidiaphragmatic elevation-pt states she was told this was probably genetic, recently bronchitis and past bronchitis, pt states recent med change (water pill) d/t electrolyte p roblem/kidney function being affected, pt states she has had pulmonary emboli, past bilateral lower extremity cellulitis, edema lower extremities, IBS, hemorrhoids, benign colon polyps, sinus problems, UTIs, bacteremia/sepsis, cardiac murmur, past L ankle and L wrist fractures. History of Any Multi-Drug Resistant Organisms: None Reported Past Surgical History: Adenoidectomy, Section, Cholecystectomy, Hysterectomy, Tonsillectomy Additional Past Surgical History / Comment(s): EGD, colonoscopies, gastric bypass, surgery for deviated septum Past Anesthesia/Blood Transfusion Reactions: Previous Problems w/ Anesthesia Additional Past Anesthesia/Blood Transfusion Reaction / Comm: itching, some kind of problem after gastric bypass-not sure what happened Past Psychological History: Anxiety, Bipolar, Depression Additional Psychological History / Comment(s): Pt resides with her spouse. They have a cat. She states her depression is not an issue. She states her anxiety and panic attacks are severe. She wears a back brace when up. She drives. Smoking Status: Current every day smoker Past Alcohol Use History: None Reported Additional Past Alcohol Use History / Comment(s): Pt states she has no idea at what age she began smoking. She states she has quit many times over the years but is currently smoking. Past Drug Use History: None Reported - Past Family History Mother Family Medical History: Congestive Heart Failure (CHF), Hypertension Father Additional Family Medical History / Comment(s): Father at the age of 45 yrs d/t having had rheumatic fever as a child and heart valve disease. Medications and Allergies Home Medications Medication Instructions Recorded Confirmed Type Divalproex [Depakote] 500 mg PO TID 12/17/13 04/26/20 History Gabapentin [Neurontin] 800 mg PO TID 12/17/13 04/26/20 History Montelukast [Singulair] 10 mg PO HS 12/17/13 04/26/20 History busPIRone HCL [Buspar] 30 mg PO BID 12/17/13 04/26/20 History lamoTRIgine [LaMICtal] 100 mg PO BID 12/17/13 04/26/20 History lisinopriL [Zestril] 20 mg PO DAILY 12/17/13 04/26/20 History Albuterol Sulfate [Proair Hfa] 2 puff INHALATION RT-Q6H PRN 05/07/18 04/26/20 History Cyclobenzaprine [Flexeril] 10 mg PO BID 06/01/19 04/26/20 History Fluticasone Propion/Salmeterol 1 puff INHALATION RT-BID 06/01/19 04/26/20 History [Wixela 250-50 Inhub] PARoxetine [Paxil] 20 mg PO DAILY 06/01/19 04/26/20 History Levothyroxine Sodium [Synthroid] 150 mcg PO DAILY 03/29/20 04/26/20 History Mupirocin 2% Oint [Bactroban 2% 1 applic TOPICAL BID 03/29/20 04/26/20 History Oint] amLODIPine [Norvasc] 5 mg PO DAILY #30 tab 04/01/20 04/26/20 Rx SILVER sulfADIAZINE CREAM 1 applic TOPICAL BID 04/26/20 04/26/20 History [Silvadene Cream] Allergies Allergy/AdvReac Type Severity Reaction Status Date / Time codeine Allergy Unknown Verified 04/26/20 16:14 Childhood Penicillins Allergy Rash/Hives Verified 04/26/20 16:14 Sulfa (Sulfonamide Allergy Rash/Hives Verified 04/26/20 16:14 Antibiotics) Physical Exam Vitals: Vital Signs Temp Pulse Pulse Pulse Pulse Pulse Resp 04/30/20 13:37 73 89 83 04/30/20 11:40 72 04/30/20 11:25 72 04/30/20 11:18 98.1 F 71 20 04/30/20 08:04 72 04/30/20 07:50 72 04/30/20 05:00 97.9 F 67 20 04/30/20 00:00 71 20 04/29/20 21:00 98.6 F 71 20 04/29/20 20:47 68 04/29/20 20:37 68 BP Pulse Ox Pulse Ox Pulse Ox Pulse Ox 04/30/20 13:37 93 L 80 L 77 L 04/30/20 11:40 04/30/20 11:25 04/30/20 11:18 160/75 98 04/30/20 08:04 04/30/20 07:50 04/30/20 05:00 177/75 95 04/30/20 00:00 04/29/20 21:00 151/75 92 L 04/29/20 20:47 04/29/20 20:37 Intake and Output 04/29/20 04/30/20 04/30/20 22:59 06:59 14:59 Intake Total 550 Balance 550 Intake: Intake, IV Titration 50 Amount Cefepime 1 gm In Sodium 50 Chloride 0.9% 50 ml @ 12. 5 mls/hr IVPB Q12HR [facility] Rx#:[id number] Oral 500 Other: Voiding Method Toilet Bedside Commode # Voids 1 4 1 GENERAL DESCRIPTION: An 82 female lying in bed, no distress. No tachypnea or accessory muscle of respiration use. HEENT: Shows Pallor , no scleral icterus. Oral mucous membrane is dry. No pharyngeal erythema or thrush NECK: Trachea central, no thyromegaly. LUNGS: Unlabored breathing. Clear to auscultation anteriorly. No wheeze or crackle. HEART: S1, S2, regular rate and rhythm. No loud murmur ABDOMEN: Soft, no tenderness , guarding or rigidity, no organomegaly EXTREMITIES: Diffuse swelling of both lower extremity minimal redness to the open wound or any drainage SKIN: No rash, no masses palpable. NEUROLOGICAL: The patient is awake, alert, oriented x3, mood and affect normal. Results CBC & Chem 7: 04/30/20 04:51 04/30/20 04:51 Labs: Abnormal Lab Results - Last 24 Hours (Table) 04/29/20 04/29/20 04/30/20 Range/Units 17:12 21:03 04:51 WBC 11.9 H (3.8-10.6) k/uL Neutrophils # 10.4 H (1.3-7.7) k/uL Lymphocytes # 0.6 L (1.0-4.8) k/uL Chloride (96-109) mmol/L Carbon Dioxide (21.6-31.8) mmol/L BUN/Creatinine Ratio (12.00-20.00) Ratio POC Glucose (mg/dL) 141 H 205 H (75-99) mg/dL 04/30/20 04/30/20 04/30/20 Range/Units 04:51 07:06 11:23 WBC (3.8-10.6) k/uL Neutrophils # (1.3-7.7) k/uL Lymphocytes # (1.0-4.8) k/uL Chloride 95 L (96-109) mmol/L Carbon Dioxide 35.7 H (21.6-31.8) mmol/L BUN/Creatinine Ratio 26.67 H (12.00-20.00) Ratio POC Glucose (mg/dL) 105 H 108 H (75-99) mg/dL Microbiology - Last 24 Hours (Table) 04/28/20 06:31 Gram Stain - Final Sputum Sputum Culture - Final Sabrina albicans 04/26/20 14:24 Blood Culture - Preliminary Blood No Growth after 72 hours Assessment and Plan Assessment: 1- patient with bilateral lower extremity cellulitis in this patient who did have a recent infected wound with Pseudomonas however this admission patient will have any open wound patient didn't have any fever or elevated white count with diffuse swelling and redness could be a streptococcal cellulitis 2-penicillin sulfa ALLERGY--limiting the number of antibiotic safe to use (1) Bilateral lower leg cellulitis Current Visit: Yes Status: Acute Code(s): L03.116 - CELLULITIS OF LEFT LOWER LIMB; L03.115 - CELLULITIS OF RIGHT LOWER LIMB SNOMED Code(s): 318053740 (2) Allergy to multiple antibiotics Current Visit: No Status: Acute Code(s): Z88.1 - ALLERGY STATUS TO OTHER ANTIBIOTIC AGENTS STATUS SNOMED Code(s): 666844614 Plan: 1- discontinue cefepime and vancomycin 2-we will add cefazolin 2 g every 8 hours 3-Gen wrap to the legs to keep the swelling down We will follow on clinical condition and cultures to further adjust medication if needed Thank you for this consultation will follow this patient with you Time with Patient: Greater than 30
[2020-05-01] MEDS: HYDROcodone/APAP 5-325MG 1 EACH TAB PO PRN (03:57)
[2020-05-01 05:08] VITALS: BP 154/72; RESP 23; TEMP 97.8
[2020-05-01] MEDS: LEVOTHYROXINE 75 MCG TAB PO SCH (05:23)
[2020-05-01] MEDS: IPRATROPIUM-ALBUTEROL 3 ML NEB INHALATION PRN ×2 (05:43→10:29)
[2020-05-01 06:01] LABS: Basophils % (A) 1 %; Eosinophils % (A) 1 %; Lymphocytes # (A) 1.6 k/uL (1.0-4.8); Lymphocytes % (A) 19 %; MCH 31.4 pg (25.0-35.0); MCHC 32.6 g/dL (31.0-37.0); MCV 96.3 fL (80.0-100.0); Mean Platelet Volume 7.1; Monocytes # (A) 1.1 k/uL (0-1.0); Monocytes % (A) 13 %; Neutrophils # (A) 5.6 k/uL (1.3-7.7); Neutrophils % (A) 66 %; Platelet Count 181 k/uL (150-450); RBC 4.15 m/uL (3.80-5.40); RDW 12.8 % (11.5-15.5); WBC 8.5 k/uL (3.8-10.6)
[2020-05-01 07:11] LABS: Glucose,Whole Blood 73 mg/dL (75-99)
[2020-05-01] MEDS: INSULIN ASPART (NovoLOG) 100 UNIT/ML VIAL SQ SCH ×2 (07:27→11:53)
[2020-05-01] MEDS: SYMBICORT 80-4.5 MCG INHALER INHALATION SCH (08:23)
[2020-05-01] MEDS: NICOTINE 21MG/24HR PATCH TRANSDERM SCH (08:55)
[2020-05-01] MEDS: busPIRone HCl 10 MG TAB PO SCH (08:58)
[2020-05-01] MEDS: CYCLOBENZAPRINE 10 MG TAB PO SCH (08:58)
[2020-05-01] MEDS: lisinopriL 20 MG TAB PO SCH (08:58)
[2020-05-01] MEDS: FAMOTIDINE 20 MG TAB PO SCH (08:58)
[2020-05-01] MEDS: predniSONE 20 MG TAB PO SCH (08:58)
[2020-05-01] MEDS: amLODIPine 5 MG TAB PO SCH (08:58)
[2020-05-01] MEDS: DIVALPROEX 500 MG TABLET.DR PO SCH (08:58)
[2020-05-01] MEDS: MUPIROCIN 2% OINT 22 GM TUBE TOPICAL SCH (08:59)
[2020-05-01] MEDS: lamoTRIgine 100 MG TAB PO SCH (08:59)
[2020-05-01] MEDS: GABAPENTIN 400 MG CAP PO SCH (08:59)
[2020-05-01] MEDS: HEPARIN SODIUM,PORCINE 5,000 UNIT/ML 1 ML VIAL SQ SCH (08:59)
[2020-05-01] MEDS: PARoxetine 20 MG TAB PO SCH (08:59)
[2020-05-01 09:37] LABS: African American GFR (CKD) 113.2 (60.0-200.0); Non-African American GFR(CKD) 97.7 (60.0-200.0)
[2020-05-01 10:33] VITALS: PULSE 72
[2020-05-01 11:16] LABS: Glucose,Whole Blood 102 mg/dL (75-99)
--- NOTE | 2020-05-01 14:56 | PN ---
PROGRESS NOTE DATE OF SERVICE: 05/01/2020 REASON FOR FOLLOWUP: Bilateral lower extremity cellulitis and discharge antibiotics. INTERVAL HISTORY: The patient is currently afebrile. The patient is breathing comfortably. The patient denies having any chest pain. No shortness of breath or cough. No vomiting. No abdominal pain or any diarrhea. PHYSICAL EXAMINATION: Blood pressure 154/72 with a pulse of 74, temperature 97.8, she is 95% on 2 L nasal cannula. General description is a middle-aged female, in the chair in no distress. RESPIRATORY SYSTEM: Unlabored breathing, decreased breath sounds at the base, no wheeze. HEART: S1, S2. Regular rate and rhythm. ABDOMEN: Soft, no tenderness. LABS: Hemoglobin 7, white count 8.5, creatinine 0.6. DIAGNOSTIC IMPRESSION AND PLAN: Patient with bilateral lower extremity cellulitis with diffuse swelling with likely streptococcal disease. Antibiotic was switched to cefazolin on which he did well. White count normal consistent with oral Keflex, 1 week prescription sent out and close outpatient followup. MMODL / IJN: [id number] /
--- NOTE | 2020-05-01 22:59 | P.DS ---
Providers Date of admission: 04/26/20 15:40 Attending physician: Jenna Weeks Consults: 04/27/20 12:05 Consult Physician Routine Consulting Provider: Danica Husain Consult Reason/Comments: recurrent cellulitis Do you want consulting provider notified?: Yes 04/28/20 09:30 Consult Physician Routine Consulting Provider: Ana Maria Carr Consult Reason/Comments: COPD, increased sob Do you want consulting provider notified?: Yes 04/30/20 13:49 Consult Physician Routine Consulting Provider: Briseida Mcdonald Consult Reason/Comments: bilateral leg cellulitis Do you want consulting provider notified?: Yes Primary care physician: Andrzej Wheeler Hospital Course: diagnoses: -recurrent cellulitis of both lower extremities, improving with IV antibiotic -Acute hypoxic respiratory failure secondary to COPD acute exacerbation. Patient on room air at restand cleared for discharge by chief minister -COPD acute exacerbation, improved -hyponatremia, improved -COPD with acute exacerbation -Acute hypoxic respiratory failure -mild leukocytosis secondary to steroid effect -type 2 diabetes mellitus -Fibromyalgia -Gastric reflux disease Hypertension -History of PE in the past -Hypothyroidism -chronic low back pain Hospital course this is a pleasant 62 years old female with past medical history of cellulitis of the lower extremity was been recently discharged from the hospital on ciprofloxacin, no other chronic medical illnesses including GERD, hypertension, history of PE in the past and hypothyroidism and chronic low back pain patient was recently discharged from the hospital from 03/29-04/01 for Pseudomonas cellulitis of the both legs. Patient is complaining from bilateral lower extremity redness and swelling for 6 month, it became hard and more heavy for the last month, she went to see her PCP Dr. Wheeler yesterday who referred her to the hospital. patient has been evaluated by pulmonary and infectious disease team, she was treated with IV antibiotics in the form of cefepime and IV vancomycin.patient showed her interval improvement in her lower extremity with less erythema and less redness and swelling and she can move her ankles more easily, physical therapy recommended home health care versus rehab, patient declined rehab unit was to go home with home care Also her hospital course was complicated by dyspnea secondary to COPD with wheezing in patient who is current smoker. Patient was treated with a steroid and her shortness of breath significantly improved and she is back to room air, she was evaluated by chief minister to her for discharge. Patient will be discharged on antibiotics, tapered steroids with improvement of her infection and respiratory status is patient was eager to be discharged home today, even she reports her IV line before she got cleared by all consultants. Patient was cleared for discharge by both pulmonary and vascular surgery Patient will be discharged with antibiotics per ID team, please see discharge instructions on the day of dc pt not depressed and denies suicidal ideation Problems and management plan were discussed with the patient and he verbalized understanding and acceptance Patient was found stable and can be discharged home however he needs follow-up as an outpatient. Patient was instructed to follow up with PCP within one week and with her chief minister / in one to two weeks and patient agrees and asked staff to make her two appointments Gen: patient is a AAOx3, no distress CVS: S1-S2, RRR, no murmur Lungs: B/L CTA, no wheezing Abdomen: soft, no distention, no tenderness, positive bowel sounds -Extremity: no leg edema or induration. Improving cellulitis of both legs Time spent more than 35 minutes Patient Condition at Discharge: Fair Plan - Discharge Summary Discharge Rx Participant: No New Discharge Prescriptions: New Cephalexin [Keflex] 500 mg PO Q6HR 7 Days #28 cap Nicotine 21Mg/24Hr Patch [Habitrol] 1 patch TRANSDERM DAILY 10 Days #10 patch predniSONE 10 mg PO DIRECTED #18 tab Continue Divalproex [Depakote] 500 mg PO TID lisinopriL [Zestril] 20 mg PO DAILY lamoTRIgine [LaMICtal] 100 mg PO BID busPIRone HCL [Buspar] 30 mg PO BID Montelukast [Singulair] 10 mg PO HS Gabapentin [Neurontin] 800 mg PO TID Albuterol Sulfate [Proair Hfa] 2 puff INHALATION RT-Q6H PRN PRN Reason: Shortness Of Breath PARoxetine [Paxil] 20 mg PO DAILY Cyclobenzaprine [Flexeril] 10 mg PO BID Fluticasone Propion/Salmeterol [Wixela 250-50 Inhub] 1 puff INHALATION RT-BID Levothyroxine Sodium [Synthroid] 150 mcg PO DAILY Mupirocin 2% Oint [Bactroban 2% Oint] 1 applic TOPICAL BID amLODIPine [Norvasc] 5 mg PO DAILY #30 tab SILVER sulfADIAZINE CREAM [Silvadene Cream] 1 applic TOPICAL BID Discharge Medication List Divalproex [Depakote] 500 mg PO TID 12/17/13 [History] Gabapentin [Neurontin] 800 mg PO TID 12/17/13 [History] Montelukast [Singulair] 10 mg PO HS 12/17/13 [History] busPIRone HCL [Buspar] 30 mg PO BID 12/17/13 [History] lamoTRIgine [LaMICtal] 100 mg PO BID 12/17/13 [History] lisinopriL [Zestril] 20 mg PO DAILY 12/17/13 [History] Albuterol Sulfate [Proair Hfa] 2 puff INHALATION RT-Q6H PRN 05/07/18 [History] Cyclobenzaprine [Flexeril] 10 mg PO BID 06/01/19 [History] Fluticasone Propion/Salmeterol [Wixela 250-50 Inhub] 1 puff INHALATION RT-BID 06/01/19 [History] PARoxetine [Paxil] 20 mg PO DAILY 06/01/19 [History] Levothyroxine Sodium [Synthroid] 150 mcg PO DAILY 03/29/20 [History] Mupirocin 2% Oint [Bactroban 2% Oint] 1 applic TOPICAL BID 03/29/20 [History] amLODIPine [Norvasc] 5 mg PO DAILY #30 tab 04/01/20 [Rx] SILVER sulfADIAZINE CREAM [Silvadene Cream] 1 applic TOPICAL BID 04/26/20 [History] Cephalexin [Keflex] 500 mg PO Q6HR 7 Days #28 cap 05/01/20 [Rx] Nicotine 21Mg/24Hr Patch [Habitrol] 1 patch TRANSDERM DAILY 10 Days #10 patch 05/01/20 [Rx] predniSONE 10 mg PO DIRECTED #18 tab 05/01/20 [Rx] Follow up Appointment(s)/Referral(s): Andrzej Wheeler MD [Primary Care Provider] - 05/06/20 11:00 am (Will see Sofia ) [facility], [NON-STAFF] - 1 Week Ana Maria Carr MD [STAFF PHYSICIAN] - 05/15/20 10:00 am Patient Instructions/Handouts: Cellulitis (DC), COPD (Chronic Obstructive Pulmonary Disease) (DC) Discharge Disposition: HOME WITH HOME HEALTH SERVICES
--- NOTE | 2020-05-03 07:23 | CDI ---
Documentation Clarification Form Date: 05/03/20 From: Pat Soliz Phone: If you have a question about this query, please contact Margy Tamayo, Bottoming Room Inspector at [phone] between 8am and 5pm. Admit Date: 04/26/20 Discharge Date:05/01/20 Patient Name: Haydee Mcpherson Visit Number: [id number] ATTENTION: The Clinical Documentation Specialists (CDI) and [facility] Coding Staff appreciate your assistance in clarifying documentation. Please respond to the clarification below the line at the bottom and electronically sign. The CDI & [facility] Coding staff will review the response and follow-up if needed. Please note: Queries are made part of the Legal Health Record. If you have any questions, please contact the author of this message via ITS. Dear Dr. Lai Cellulitis of the bilateral lower extremities is documented throughout the chart. Patient also has diabetes. Patient history/risk factors: Recent Pseudomonas bilateral lower extremity cellulitis, DM, venous stasis, Htn Clinical Indicators: Redness and swelling of bilateral lower extremities Radiology: Venous Doppler - No DVT of the bilateral lower extremities Vital Signs: T. 98.5, P. 74, R. 18, BP 134/67 Treatment: Medication: Patient not on diabetic medication, IV Cefepime, IV Cefazolin, wraps to lower extremities In your professional opinion, can your clarify if the cellulitis is? Associated with Diabetes Mellitus Not Associated with Diabetes Mellitus Other, please specify: Unable to determine Not Associated with Diabetes Mellitus MTDD
== END 2020-05-01 15:48 | disposition home health service (06) | DRG 602 ==
LOC: EC 13:55 → 6NMEDSUR 15:40
PROVIDERS: ADMIT Internal Medicine; ATTEND Internal Medicine
DX: L03.115 Cellulitis of right lower limb (principal); J96.01 Acute respiratory failure with hypoxia; E87.1 Hypo-osmolality and hyponatremia; J44.1 Chronic obstructive pulmonary disease with (acute) exacerbation; Z68.41 Body mass index [BMI] 40.0-44.9, adult; L03.116 Cellulitis of left lower limb; J98.6 Disorders of diaphragm; E66.01 Morbid (severe) obesity due to excess calories; F31.9 Bipolar disorder, unspecified; E11.9 Type 2 diabetes mellitus without complications; E03.9 Hypothyroidism, unspecified; F17.210 Nicotine dependence, cigarettes, uncomplicated; Z20.828 Contact with and (suspected) exposure to other viral communicable diseases; F41.0 Panic disorder [episodic paroxysmal anxiety]; G89.29 Other chronic pain; I10 Essential (primary) hypertension; K21.9 Gastro-esophageal reflux disease without esophagitis; M19.90 Unspecified osteoarthritis, unspecified site; M41.9 Scoliosis, unspecified; M65.9 Synovitis and tenosynovitis, unspecified; M79.7 Fibromyalgia; T38.0X5A Adverse effect of glucocorticoids and synthetic analogues, initial encounter; K58.9 Irritable bowel syndrome, unspecified; K64.9 Unspecified hemorrhoids; M48.02 Spinal stenosis, cervical region; M50.90 Cervical disc disorder, unspecified, unspecified cervical region; R01.1 Cardiac murmur, unspecified; M54.5 Low back pain; D72.829 Elevated white blood cell count, unspecified; A49.1 Streptococcal infection, unspecified site; I87.8 Other specified disorders of veins; Z79.890 Hormone replacement therapy; Z79.899 Other long term (current) drug therapy; Z86.711 Personal history of pulmonary embolism; Z90.710 Acquired absence of both cervix and uterus; Z98.84 Bariatric surgery status; Z88.5 Allergy status to narcotic agent; Z88.0 Allergy status to penicillin; Z88.2 Allergy status to sulfonamides; Z90.49 Acquired absence of other specified parts of digestive tract; Z90.89 Acquired absence of other organs; Z98.890 Other specified postprocedural states; Z86.010 Personal history of colon polyps; Z87.898 Personal history of other specified conditions; Z87.01 Personal history of pneumonia (recurrent); Z87.440 Personal history of urinary (tract) infections; Z87.81 Personal history of (healed) traumatic fracture; Z82.49 Family history of ischemic heart disease and other diseases of the circulatory system; Z84.89 Family history of other specified conditions
CPT/HCPCS: 36415; 71046; 80048; 80053; 80202; 81001; 82565; 83036; 83605; 83880; 85025; 85610; 85730; 87040; 87070; 87205; 93306; 93970; 94640; 94760; 99284

== ENCOUNTER 2020-05-27 12:35 | Inpatient (IN) | payer MEDICARE ==
[2020-05-27] MEDS ORDERED: ACETAMINOPHEN TAB 325 MG TAB PO PRN (14:30)
[2020-05-27] MEDS ORDERED: NALOXONE 0.4 MG/ML 1 ML VIAL IV PRN (14:30)
[2020-05-27] MEDS ORDERED: cefTRIAXone IN SWFI 1,000 MG/10 ML SYRINGE IVP STA (14:31)
[2020-05-27] MEDS ORDERED: VANCOMYCIN IV PER PHARMACY 1 EACH MISC MISCELLANE PRN (14:31)
[2020-05-27] MEDS ORDERED: HYDROcodone/APAP 5-325MG 1 EACH TAB PO STA (14:35)
--- NOTE | 2020-05-27 14:39 | ED ---
General Adult HPI - General Chief complaint: Extremity Problem,Nontraumatic Stated complaint: Cellulitis-sent by dr Villarreal Seen by Provider: 05/27/20 14:29 Source: patient, RN notes reviewed, old records reviewed Mode of arrival: wheelchair Limitations: no limitations - History of Present Illness Initial comments: 65-year-old female presented for evaluation of bilateral lower extremity swelling and erythema. Patient was recently admitted with bilateral lower extremity cellulitis. She states over the past week this has worsened. She denies fever. She is having significant pain in both legs secondary to the swelling. No history of CHF. No new or worsening dyspnea. No abdominal pain nausea vomiting. - Related Data Home Medications Medication Instructions Recorded Confirmed Divalproex [Depakote] 500 mg PO TID 12/17/13 04/26/20 Gabapentin [Neurontin] 800 mg PO TID 12/17/13 04/26/20 Montelukast [Singulair] 10 mg PO HS 12/17/13 04/26/20 busPIRone HCL [Buspar] 30 mg PO BID 12/17/13 04/26/20 lamoTRIgine [LaMICtal] 100 mg PO BID 12/17/13 04/26/20 lisinopriL [Zestril] 20 mg PO DAILY 12/17/13 04/26/20 Albuterol Sulfate [Proair Hfa] 2 puff INHALATION RT-Q6H PRN 05/07/18 04/26/20 Cyclobenzaprine [Flexeril] 10 mg PO BID 06/01/19 04/26/20 Fluticasone Propion/Salmeterol 1 puff INHALATION RT-BID 06/01/19 04/26/20 [Wixela 250-50 Inhub] PARoxetine [Paxil] 20 mg PO DAILY 06/01/19 04/26/20 Levothyroxine Sodium [Synthroid] 150 mcg PO DAILY 03/29/20 04/26/20 Mupirocin 2% Oint [Bactroban 2% 1 applic TOPICAL BID 03/29/20 04/26/20 Oint] SILVER sulfADIAZINE CREAM 1 applic TOPICAL BID 04/26/20 04/26/20 [Silvadene Cream] Previous Rx's Medication Instructions Recorded amLODIPine [Norvasc] 5 mg PO DAILY #30 tab 04/01/20 Cephalexin [Keflex] 500 mg PO Q6HR 7 Days #28 cap 05/01/20 Nicotine 21Mg/24Hr Patch [Habitrol] 1 patch TRANSDERM DAILY 10 Days 05/01/20 #10 patch predniSONE 10 mg PO DIRECTED #18 tab 05/01/20 Allergies Allergy/AdvReac Type Severity Reaction Status Date / Time codeine Allergy Unknown Verified 05/27/20 13:18 Childhood Penicillins Allergy Rash/Hives Verified 05/27/20 13:18 Sulfa (Sulfonamide Allergy Rash/Hives Verified 05/27/20 13:18 Antibiotics) Review of Systems ROS Statement: Those systems with pertinent positive or pertinent negative responses have been documented in the HPI. ROS Other: All systems not noted in ROS Statement are negative. Past Medical History Past Medical History: Asthma, COPD, Diabetes Mellitus, Fibromyalgia, GERD/Reflux , Hypertension, Osteoarthritis (OA), Pneumonia, Pulmonary Embolus (PE), Skin Disorder, Thyroid Disorder Additional Past Medical History / Comment(s): Cervical disc disease/stenosis, scoliosis, wears back brace, recently having numbness/tingling L side of face/neck, recently saw research manager for L hemidiaphragmatic elevation-pt states she was told this was probably genetic, recently bronchitis and past bronchitis, pt states recent med change (water pill) d/t electrolyte problem/kidney function being affected, pt states she has had pulmonary emboli, past bilateral lower extremity cellulitis, edema lower extremities, IBS, hemorrhoids, benign colon polyps, sinus problems, UTIs, bacteremia/sepsis, cardiac murmur, past L ankle and L wrist fractures. History of Any Multi-Drug Resistant Organisms: None Reported Past Surgical History: Adenoidectomy, Section, Cholecystectomy, Hysterectomy, Tonsillectomy Additional Past Surgical History / Comment(s): EGD, colonoscopies, gastric bypass, surgery for deviated septum Past Anesthesia/Blood Transfusion Reactions: Previous Problems w/ Anesthesia Additional Past Anesthesia/Blood Transfusion Reaction / Comment(s): itching, some kind of problem after gastric bypass-not sure what happened Past Psychological History: Anxiety, Bipolar, Depression Smoking Status: Current every day smoker Past Alcohol Use History: None Reported Past Drug Use History: None Reported - Past Family History Mother Family Medical History: Congestive Heart Failure (CHF), Hypertension Father Additional Family Medical History / Comment(s): Father at the age of 45 yrs d/t having had rheumatic fever as a child and heart valve disease. General Exam Limitations: no limitations General appearance: alert, in no apparent distress Head exam: Present: atraumatic, normocephalic Eye exam: Present: normal appearance, PERRL ENT exam: Present: normal exam Neck exam: Present: normal inspection. Absent: tenderness, meningismus Respiratory exam: Present: normal lung sounds bilaterally. Absent: respiratory distress, wheezes Cardiovascular Exam: Present: regular rate, normal rhythm, systolic murmur GI/Abdominal exam: Present: soft. Absent: distended, tenderness, guarding, rebound Extremities exam: Present: pedal edema, calf tenderness, other (bilateral circumferential erythema, induration consistent with cellulitis) Neurological exam: Present: alert, oriented X3, CN II-XII intact. Absent: motor sensory deficit Psychiatric exam: Present: normal affect, normal mood Skin exam: Present: erythema (bilateral lower extremity cellulitis from the foot to the knee circumferentially) Course Vital Signs 05/27/20 13:08 Temperature 98.7 F Pulse Rate 76 Respiratory 18 Rate Blood Pressure 151/73 O2 Sat by Pulse 96 Oximetry Medical Decision Making - Medical Decision Making 64-year-old female sent in from her primary care office for admission for IV antibiotics. Recent admission for bilateral lower extremity cellulitis. I exam the patient has superficial cellulitis of both lower extremities, this is warm and erythematous, indurated. atient is started on ceftriaxone and vancomycin. Laboratory studies will be obtained these results are pending. She will be admitted for IV antibiotics and further evaluation treatment. Disposition Clinical Impression: Bilateral lower leg cellulitis Disposition: ADMITTED IP TO THIS [facility] Condition: Stable Is patient prescribed a controlled substance at d/c from ED?: No Referrals: Andrzej Wheeler MD [Primary Care Provider] - 1-2 days Decision to Admit Reason: Admit from EC Decision Date: 05/27/20 Decision Time: 14:39
[2020-05-27] MEDS: SODIUM CHLORIDE 0.9% 1,000 ML IV SCH (15:00)
[2020-05-27] MEDS ORDERED: VANCOMYCIN 1,750 MG in SODIUM CHLORIDE 0.9% 500 ML 500 ML IVPB ONE (15:00)
[2020-05-27 15:22] LABS: Basophils # (A) 0.1 k/uL (0-0.2); Basophils % (A) 1 %; Eosinophils # (A) 0.2 k/uL (0-0.7); Eosinophils % (A) 3 %; HCT 43.8 % (34.0-46.0); HGB 14.3 gm/dL (11.4-16.0); Lymphocytes # (A) 1.9 k/uL (1.0-4.8); Lymphocytes % (A) 24 %; MCH 31.3 pg (25.0-35.0); MCHC 32.8 g/dL (31.0-37.0); MCV 95.6 fL (80.0-100.0); Mean Platelet Volume 6.7; Monocytes % (A) 12 %; Neutrophils # (A) 4.5 k/uL (1.3-7.7); Neutrophils % (A) 59 %; Platelet Count 233 k/uL (150-450); RBC 4.58 m/uL (3.80-5.40); RDW 13.3 % (11.5-15.5); WBC 7.7 k/uL (3.8-10.6)
[2020-05-27 15:53] LABS: ALT 10 U/L (4-34); AST 27 U/L (14-36); African American GFR (CKD) >90 (>60 ml/min/1.73 sqM); Albumin 4.4 g/dL (3.5-5.0); Alkaline Phosphatase 101 U/L (38-126); Anion Gap 7 mmol/L; Blood Urea Nitrogen 6 mg/dL (7-17); Calcium 9.9 mg/dL (8.4-10.2); Carbon Dioxide 34 mmol/L (22-30); Chloride 89 mmol/L (98-107); Glucose 78 mg/dL (74-99); Magnesium 1.7 mg/dL (1.6-2.3); Non-African American GFR(CKD) >90 (>60 ml/min/1.73 sqM); Potassium 4.2 mmol/L (3.5-5.1); Sodium 130 mmol/L (137-145); Total Bilirubin 0.5 mg/dL (0.2-1.3); Total Protein 7.4 g/dL (6.3-8.2)
[2020-05-27] MEDS ORDERED: ALBUTEROL NEBULIZED 2.5 MG/3 ML INHALATION PRN (19:41)
[2020-05-27] MEDS: SYMBICORT 80-4.5 MCG INHALER INHALATION SCH (20:16)
[2020-05-27] MEDS ORDERED: ALPRAZolam 0.25 MG TAB PO PRN (21:49)
[2020-05-27] MEDS: GABAPENTIN 400 MG CAP PO SCH (22:35)
[2020-05-27] MEDS: busPIRone HCl 10 MG TAB PO SCH (22:36)
[2020-05-27] MEDS: DIVALPROEX ER 500 MG TAB.ER.24H PO SCH (22:36)
[2020-05-27] MEDS: lamoTRIgine 100 MG TAB PO SCH (22:36)
[2020-05-27] MEDS: MONTELUKAST 10 MG TAB PO SCH (22:36)
[2020-05-27] MEDS: CYCLOBENZAPRINE 10 MG TAB PO SCH (22:36)
[2020-05-27] MEDS: MUPIROCIN 2% OINT 22 GM TUBE TOPICAL SCH (23:56)
[2020-05-27] MEDS: NYSTATIN 100,000 UNIT/GM POWD 15 GM TOPICAL SCH (23:56)
[2020-05-28] MEDS ORDERED: TEMAZEPAM 15 MG CAP PO PRN (01:30)
--- NOTE | 2020-05-28 05:51 | HP ---
HISTORY AND PHYSICAL CHIEF COMPLAINT: Bilateral leg cellulitis. HISTORY OF PRESENT ILLNESS: This 65-year-old woman with a past medical history of multiple medical problems including asthma, COPD, diabetes mellitus, fibromyalgia, GERD, hypertension, DJD, history of pneumonia, history of pulmonary embolism being followed by Dr. Andrzej Wheeler in the outpatient setting. She was noted to have bilateral erythema. The patient has difficulty walking apparent peripheral neuropathy also. The patient developed skin rashes and significant redness of both legs and the patient came to [facility] and admitted for further evaluation and treatment. There is no history of headache, loss of consciousness, chest pain, palpitation at this time. PAST MEDICAL HISTORY: Asthma, COPD, diabetes mellitus, fibromyalgia, GERD. HOME MEDICATIONS: The home medications are reviewed and include, medications are: 1. Nystatin. 2. Zestril. 3. Lamictal. 4. BuSpar. 5. Norvasc. 6. Silvadene. 7. Paxil. 8. Habitrol. 9. Bactroban. 10.Singulair. 11.Synthroid. 12.Neurontin. 13.Wixela. 14.Depakote. 15.Flexeril. 16.ProAir. ALLERGIES: CODEINE, PENICILLIN, SULFA. FAMILY HISTORY: History of CHF, hypertension in the family. SOCIAL HISTORY: History of current smoking. No history of alcohol intake. REVIEW OF SYSTEMS: ENT: No diminished hearing or diminished vision. CARDIOVASCULAR SYSTEM: No angina. RESPIRATORY SYSTEM: As mentioned earlier. GI: As mentioned earlier. : No dysuria. NERVOUS SYSTEM: No numbness or weakness. ALLERGY/IMMUNOLOGY: As mentioned earlier. MUSCULOSKELETAL: As mentioned earlier. HEMATOLOGY/ONCOLOGY: No history of anemia. ENDOCRINE: Hypothyroidism. CONSTITUTIONAL: As mentioned earlier. DERMATOLOGY: Negative. RHEUMATOLOGY: Negative. PSYCHIATRY: As mentioned earlier. PHYSICAL EXAMINATION: The patient is alert and oriented x3. Pulse 64, blood pressure 135/69, respiration 18, temperature 98.7, pulse ox 94% on 2 L. HEENT: Conjunctivae normal. NECK: No jugular venous distention. CARDIOVASCULAR: S1, S2 muffled. RESPIRATORY: Breath sounds diminished at the bases. No rhonchi, no crackles. ABDOMEN: Soft. LEGS: Bilateral leg cellulitis and erythema present. NERVOUS SYSTEM: No focal deficits LYMPHATICS: No lymphadenopathy of the neck, axillae or groin. LABS: CBC within normal limits. Sodium 130, CO2 is 34. C-reactive protein is 11. ASSESSMENT: 1. Acute bilateral cellulitis. 2. Hyponatremia. 3. History of asthma, chronic obstructive pulmonary disease. 4. Diabetes mellitus type 2. 5. Fibromyalgia. 6. Gastroesophageal reflux disease. 7. Hypertension. 8. History of degenerative joint disease. 9. History of pulmonary embolism. 10.History of adenoidectomy. 11.History of section. 12.Anxiety, depression bipolar. RECOMMENDATIONS AND DISCUSSION: In this 65-year-old woman who presented with multiple complex medical issues, we will monitor the patient closely. Continue the current medications. Continue symptomatic treatment. Will initiate broad-spectrum IV antibiotics and otherwise local treatment, cultures. Resume the home medications. Prognosis guarded because of multiple complex medical issues. Further recommendations to follow. A copy of dictation forwarded to Dr. Andrzej Wheeler who is the primary physician. Dr. Andrzej Wheeler will follow tomorrow. See orders for further details. MMODL / IJN: [id number] /
[2020-05-28] MEDS: LEVOTHYROXINE 75 MCG TAB PO SCH (06:17)
[2020-05-28 06:20] LABS: Basophils % (A) 1 %; Eosinophils # (A) 0.2 k/uL (0-0.7); Eosinophils % (A) 3 %; HCT 38.8 % (34.0-46.0); HGB 12.6 gm/dL (11.4-16.0); Lymphocytes % (A) 23 %; MCH 31.6 pg (25.0-35.0); MCHC 32.5 g/dL (31.0-37.0); MCV 97.2 fL (80.0-100.0); Mean Platelet Volume 6.8; Monocytes # (A) 0.6 k/uL (0-1.0); Monocytes % (A) 14 %; Neutrophils # (A) 2.6 k/uL (1.3-7.7); Neutrophils % (A) 58 %; Platelet Count 181 k/uL (150-450); RBC 3.99 m/uL (3.80-5.40); RDW 13.3 % (11.5-15.5); WBC 4.4 k/uL (3.8-10.6)
[2020-05-28 07:34] LABS: Glucose,Whole Blood 65 mg/dL (75-99)
[2020-05-28 07:51] LABS: Glucose,Whole Blood 69 mg/dL (75-99)
[2020-05-28 08:09] LABS: Glucose,Whole Blood 81 mg/dL (75-99)
--- NOTE | 2020-05-28 08:40 | XR ---
EXAMINATION TYPE: XR chest 2V DATE OF EXAM: 05/28/2020 COMPARISON: 04/28/2020 TECHNIQUE: PA and lateral views submitted. HISTORY: Shortness of breath FINDINGS: Bilateral consolidation. Heart size stable. There is improvement in the basis. Interstitial prominenc e noted. No pneumothorax. Tiny pleural effusion suspected. IMPRESSION: 1. Pleural-parenchymal changes demonstrate mild improvement with reduction in amount of consolidation in the lung bases. Persistent interstitial pattern seen with tiny effusions. Correlate for improving pneumonia versus CHF.
[2020-05-28] MEDS: SYMBICORT 80-4.5 MCG INHALER INHALATION SCH ×2 (08:55→21:01)
[2020-05-28] MEDS ORDERED: FUROSEMIDE 20 MG TAB PO SCH (09:00)
[2020-05-28] MEDS: VANCOMYCIN 1,750 MG in SODIUM CHLORIDE 0.9% 500 ML 500 ML IVPB SCH ×2 (09:05→22:29)
[2020-05-28] MEDS: PARoxetine 20 MG TAB PO SCH (09:06)
[2020-05-28] MEDS: LORATADINE 10 MG TAB PO SCH (09:07)
[2020-05-28] MEDS: PANTOPRAZOLE 40 MG TABLET PO SCH (09:07)
[2020-05-28] MEDS: DIVALPROEX ER 500 MG TAB.ER.24H PO SCH ×3 (09:07→21:23)
[2020-05-28] MEDS: HEPARIN SODIUM,PORCINE 5,000 UNIT/ML 1 ML VIAL SQ SCH ×2 (09:07→21:22)
[2020-05-28] MEDS: busPIRone HCl 10 MG TAB PO SCH ×2 (09:07→21:22)
[2020-05-28] MEDS: CYCLOBENZAPRINE 10 MG TAB PO SCH ×2 (09:07→21:22)
[2020-05-28] MEDS: lamoTRIgine 100 MG TAB PO SCH ×2 (09:07→21:22)
[2020-05-28] MEDS: lisinopriL 20 MG TAB PO SCH (09:07)
[2020-05-28] MEDS: GABAPENTIN 400 MG CAP PO SCH ×3 (09:07→21:23)
[2020-05-28] MEDS: MUPIROCIN 2% OINT 22 GM TUBE TOPICAL SCH ×2 (09:08→21:23)
[2020-05-28] MEDS: amLODIPine 5 MG TAB PO SCH (09:08)
[2020-05-28] MEDS: NICOTINE 21MG/24HR PATCH TRANSDERM SCH (09:08)
[2020-05-28] MEDS: NYSTATIN 100,000 UNIT/GM POWD 15 GM TOPICAL SCH ×2 (09:12→21:23)
--- NOTE | 2020-05-28 09:24 | P.PN ---
Subjective Progress Note Date: 05/28/20 Principal diagnosis: Bilateral lower leg extremity cellulitis 65-year-old female with past medical history of asthma, COPD, diabetes mellitus, fibromyalgia, GERD, hypertension, DJD, peripheral neuropathy, difficulty with ambulation was evaluated in Dr. Andrzej Wheeler's office on 05/28/2020sent to the emergency department due to bilateral lower extremity erythema patient had exte nsive diagnostic workup in the emergency roomrevealed bilateral lower extremity cellulitis patient complained of exertional dyspnea generalized weakness, and bilateral lower extremity swelling Objective - Vital Signs Vital signs: Vital Signs Temp 97.7 F 05/28/20 07:56 Pulse 74 05/28/20 07:56 Resp 17 05/28/20 07:56 BP 166/71 05/28/20 07:56 Pulse Ox 92 L 05/28/20 07:56 Intake & Output 05/27/20 05/28/20 05/28/20 18:59 06:59 18:59 Weight 102.058 kg 102.058 kg Other: Voiding Method Toilet # Voids 1 - Constitutional General appearance: Present: morbidly obese - EENT Eyes: Present: PERRLA, poor dentition Ears: bilateral: normal - Neck Neck: Present: normal ROM Carotids: bilateral: upstroke normal Thyroid: bilateral: normal size - Respiratory Respiratory: bilateral: diminished (Posterior bases) - Cardiovascular Details: Sinus rhythm Heart rate: 74 Rhythm: regular Heart sounds: normal: S1, S2 - Peripheral edema leg Peripheral Edema: bilateral: 4+ (Erythremia) - Peripheral pulses posterior tibial Peripheral Pulses: bilateral: Diminished - Gastrointestinal General gastrointestinal: Present: normal bowel sounds - Integumentary Integumentary: Present: cellulitis (Bilateral lower extremity) - Neurologic Neurologic: Present: CNII-XII intact - Musculoskeletal Musculoskeletal: Present: generalized weakness - Psychiatric Psychiatric: Present: A&O x's 3, appropriate affect, intact judgment & insight - Allied health notes Allied health notes reviewed: nursing - Labs CBC & Chem 7: 05/28/20 06:03 05/27/20 15:05 Labs: Abnormal Lab Results - Last 24 Hours (Table) 05/27/20 05/28/20 05/28/20 Range/Units 15:05 07:32 07:49 Sodium 130 L (137-145) mmol/L Chloride 89 L (98-107) mmol/L Carbon Dioxide 34 H (22-30) mmol/L BUN 6 L (7-17) mg/dL POC Glucose (mg/dL) 65 L 69 L (75-99) mg/dL C-Reactive Protein 11.0 H (<10.0) mg/L - Imaging and Cardiology Chest x-ray: report reviewed Assessment and Plan Assessment: Acute bilateral lower extremity cellulitis Hyponatremia Asthma COPD Diabetes mellitus type 2 Fibromyalgia GERD Degenerative joint disease Anxiety Depression Bipolar unspecified (1) Bilateral lower leg cellulitis Current Visit: Yes Status: Acute Priority: High Code(s): L03.116 - CELLULITIS OF LEFT LOWER LIMB; L03.115 - CELLULITIS OF RIGHT LOWER LIMB SNOMED Code(s): 489998409 Plan: Acute bilateral lower extremity cellulitiscontinue IV antibiotic therapy broad- spectrum Hyponatremia continue to monitor awaiting am labs Continue medical management Time with Patient: Greater than 30
[2020-05-28 09:40] LABS: ALT 8 U/L (8-44); AST 19 U/L (13-35); African American GFR (CKD) 112.4 (60.0-200.0); Albumin/Globulin Ratio 1.94 (1.60-3.17); Alkaline Phosphatase 79 U/L (41-126); Blood Urea Nitrogen <5.0 mg/dL (9.0-27.0); Carbon Dioxide 33.3 mmol/L (21.6-31.8); Chloride 95 mmol/L (96-109); Globulin 1.8 g/dL (1.6-3.3); Glucose 71 mg/dL (70-110); Potassium 4.4 mmol/L (3.5-5.5); Sodium 134 mmol/L (135-145); Total Bilirubin 0.2 mg/dL (0.2-1.2); Total Protein 5.3 g/dL (6.2-8.2)
[2020-05-28 10:28] LABS: Valproic Acid (Depakene) 90.2 ug/mL (50.0-100.0)
[2020-05-28 11:54] LABS: Glucose,Whole Blood 78 mg/dL (75-99)
[2020-05-28] MEDS ORDERED: FUROSEMIDE 10 MG/ML 2 ML VIAL IV ONE (12:51)
[2020-05-28] MEDS ORDERED: CEFEPIME 1 GM in SODIUM CHLORIDE 0.9% 100 ML IVPB SCH (16:00)
[2020-05-28] MEDS: CEFEPIME 1 GM in SODIUM CHLORIDE 0.9% 50 ML IVPB SCH ×2 (16:33→23:54)
[2020-05-28 16:36] LABS: Glucose,Whole Blood 94 mg/dL (75-99)
[2020-05-28 21:17] LABS: Glucose,Whole Blood 127 mg/dL (75-99)
[2020-05-28] MEDS: MONTELUKAST 10 MG TAB PO SCH (21:23)
[2020-05-28] MEDS: HYDROcodone/APAP 5-325MG 1 EACH TAB PO PRN (22:29)
[2020-05-28] MEDS: SODIUM CHLORIDE 0.9% 1,000 ML IV SCH (23:06)
[2020-05-29] MEDS: HYDROcodone/APAP 5-325MG 1 EACH TAB PO PRN ×2 (04:28→19:15)
[2020-05-29] MEDS: LEVOTHYROXINE 75 MCG TAB PO SCH (06:11)
[2020-05-29 06:14] LABS: Basophils % (A) 1 %; Eosinophils # (A) 0.1 k/uL (0-0.7); Eosinophils % (A) 2 %; HCT 36.8 % (34.0-46.0); HGB 11.8 gm/dL (11.4-16.0); Lymphocytes # (A) 0.6 k/uL (1.0-4.8); Lymphocytes % (A) 19 %; MCH 31.4 pg (25.0-35.0); MCV 97.8 fL (80.0-100.0); Mean Platelet Volume 6.7; Monocytes # (A) 0.6 k/uL (0-1.0); Monocytes % (A) 18 %; Neutrophils # (A) 1.8 k/uL (1.3-7.7); Neutrophils % (A) 58 %; Platelet Count 158 k/uL (150-450); RBC 3.76 m/uL (3.80-5.40); RDW 13.3 % (11.5-15.5); WBC 3.2 k/uL (3.8-10.6)
[2020-05-29 06:29] LABS: ALT 9 U/L (4-34); AST 27 U/L (14-36); African American GFR (CKD) >90 (>60 ml/min/1.73 sqM); Albumin/Globulin Ratio 1.4; Alkaline Phosphatase 56 U/L (38-126); Anion Gap 1 mmol/L; Blood Urea Nitrogen 10 mg/dL (7-17); Carbon Dioxide 34 mmol/L (22-30); Chloride 96 mmol/L (98-107); Globulin 2.2 g/dL; Glucose 75 mg/dL (74-99); Non-African American GFR(CKD) >90 (>60 ml/min/1.73 sqM); Potassium 4.3 mmol/L (3.5-5.1); Sodium 131 mmol/L (137-145); Total Bilirubin 0.4 mg/dL (0.2-1.3); Total Protein 5.2 g/dL (6.3-8.2)
[2020-05-29 07:35] LABS: Glucose,Whole Blood 71 mg/dL (75-99)
--- NOTE | 2020-05-29 07:38 | P.PN ---
Subjective Progress Note Date: 06/05/20 Principal diagnosis: Bilateral lower leg extremity cellulitis 65-year-old female with past medical history of asthma, COPD, diabetes mellitus, fibromyalgia, GERD, hypertension, DJD, peripheral neuropathy, difficulty with ambulation was evaluated in Dr. Andrzej Wheeler's office on 05/28/2020sent to the emergency department due to bilateral lower extremity erythema patient had exte nsive diagnostic workup in the emergency roomrevealed bilateral lower extremity cellulitis patient complained of exertional dyspnea generalized weakness, and bilateral lower extremity swelling. Patient's antibiotic therapy switched to cefepime 1 g U8 hours due to culture and sensitivity from past for Pseudomonas will continue vancomycin for suspected MRSA. She decrease in swelling and erythema to bilateral lower extremities Objective - Vital Signs Vital signs: Vital Signs Temp 98.1 F 05/29/20 05:00 Pulse 75 05/29/20 05:00 Resp 18 05/29/20 05:00 BP 133/75 05/29/20 05:00 Pulse Ox 94 L 05/29/20 05:00 Intake & Output 05/28/20 05/29/20 05/29/20 18:59 06:59 18:59 Intake Total 240 240 Balance 240 240 Intake: Oral 240 240 Other: Voiding Method Toilet Toilet # Voids 1 3 - Constitutional General appearance: Present: morbidly obese - EENT Eyes: Present: EOMI, PERRLA ENT: Present: hearing grossly normal Ears: bilateral: normal - Neck Neck: Present: normal ROM Thyroid: bilateral: normal size - Respiratory Respiratory: bilateral: diminished (Anterior and posterior) - Cardiovascular Details: Normal sinus rhythm Heart rate: 81 Rhythm: regular Heart sounds: normal: S1, S2 - Peripheral edema leg Peripheral Edema: bilateral: 4+ ankle Peripheral Edema: bilateral: 4+ - Peripheral pulses posterior tibial Peripheral Pulses: bilateral: Normal - Gastrointestinal General gastrointestinal: Present: normal bowel sounds - Integumentary Integumentary Comment(s): Bilateral lower extremities Integumentary: Present: cellulitis - Neurologic Neurologic: Present: CNII-XII intact - Musculoskeletal Musculoskeletal: Present: generalized weakness - Psychiatric Psychiatric: Present: A&O x's 3 - Allied health notes Allied health notes reviewed: nursing - Labs CBC & Chem 7: 05/29/20 05:47 05/29/20 05:47 Labs: Abnormal Lab Results - Last 24 Hours (Table) 05/28/20 05/28/20 05/28/20 Range/Units 06:03 06:03 07:32 WBC (3.8-10.6) k/uL RBC (3.80-5.40) m/uL Lymphocytes # (1.0-4.8) k/uL Sodium 134 L (135-145) mmol/L Chloride 95 L (96-109) mmol/L Carbon Dioxide 33.3 H (21.6-31.8) mmol/L BUN <5.0 L (9.0-27.0) mg/dL POC Glucose (mg/dL) 65 L (75-99) mg/dL Total Protein 5.3 L (6.2-8.2) g/dL Albumin 3.50 L (3.80-4.90) g/dL Procalcitonin 0.13 H (0.02-0.09) ng/mL 05/28/20 05/28/20 05/29/20 Range/Units 07:49 21:15 05:47 WBC 3.2 L (3.8-10.6) k/uL RBC 3.76 L (3.80-5.40) m/uL Lymphocytes # 0.6 L (1.0-4.8) k/uL Sodium (135-145) mmol/L Chloride (96-109) mmol/L Carbon Dioxide (21.6-31.8) mmol/L BUN (9.0-27.0) mg/dL POC Glucose (mg/dL) 69 L 127 H (75-99) mg/dL Total Protein (6.2-8.2) g/dL Albumin (3.80-4.90) g/dL Procalcitonin (0.02-0.09) ng/mL 05/29/20 Range/Units 05:47 WBC (3.8-10.6) k/uL RBC (3.80-5.40) m/uL Lymphocytes # (1.0-4.8) k/uL Sodium 131 L (135-145) mmol/L Chloride 96 L (96-109) mmol/L Carbon Dioxide 34 H (21.6-31.8) mmol/L BUN (9.0-27.0) mg/dL POC Glucose (mg/dL) (75-99) mg/dL Total Protein 5.2 L (6.2-8.2) g/dL Albumin 3.0 L (3.80-4.90) g/dL Procalcitonin (0.02-0.09) ng/mL Microbiology - Last 24 Hours (Table) 05/27/20 15:05 Blood Culture - Preliminary Blood No Growth after 24 hours - Imaging and Cardiology Chest x-ray: report reviewed Assessment and Plan Assessment: Acute bilateral lower extremity cellulitis Hyponatremia Asthma COPD Diabetes mellitus type 2 Fibromyalgia GERD Degenerative joint disease Anxiety Depression Bipolar unspecified (1) Bilateral lower leg cellulitis Current Visit: Yes Status: Acute Priority: High Code(s): L03.116 - CELLULITIS OF LEFT LOWER LIMB; L03.115 - CELLULITIS OF RIGHT LOWER LIMB SNOMED Code(s): 978620807 Plan: Acute bilateral lower extremity cellulitiscontinue IV antibiotic-vancomycin and cefepime Hyponatremia-continue to monitor Echocardiogram ordered awaiting diagnostic testing results Physical therapy to encourage ambulation Continue medical management Time with Patient: Greater than 30
[2020-05-29] MEDS: CEFEPIME 1 GM in SODIUM CHLORIDE 0.9% 50 ML IVPB SCH ×3 (08:43→23:54)
[2020-05-29] MEDS: NICOTINE 21MG/24HR PATCH TRANSDERM SCH ×2 (08:53→08:55)
[2020-05-29] MEDS: HEPARIN SODIUM,PORCINE 5,000 UNIT/ML 1 ML VIAL SQ SCH ×2 (08:53→19:55)
[2020-05-29] MEDS: PARoxetine 20 MG TAB PO SCH (08:53)
[2020-05-29] MEDS: LORATADINE 10 MG TAB PO SCH (08:54)
[2020-05-29] MEDS: busPIRone HCl 10 MG TAB PO SCH ×2 (08:54→19:55)
[2020-05-29] MEDS: CYCLOBENZAPRINE 10 MG TAB PO SCH ×2 (08:54→19:55)
[2020-05-29] MEDS: GABAPENTIN 400 MG CAP PO SCH ×3 (08:54→21:12)
[2020-05-29] MEDS: lamoTRIgine 100 MG TAB PO SCH ×2 (08:54→19:55)
[2020-05-29] MEDS: amLODIPine 5 MG TAB PO SCH (08:54)
[2020-05-29] MEDS: lisinopriL 20 MG TAB PO SCH (08:54)
[2020-05-29] MEDS: DIVALPROEX ER 500 MG TAB.ER.24H PO SCH ×3 (08:54→21:12)
[2020-05-29] MEDS: PANTOPRAZOLE 40 MG TABLET PO SCH (08:54)
[2020-05-29] MEDS: MUPIROCIN 2% OINT 22 GM TUBE TOPICAL SCH ×2 (08:55→19:55)
[2020-05-29] MEDS: NYSTATIN 100,000 UNIT/GM POWD 15 GM TOPICAL SCH ×2 (08:55→19:56)
[2020-05-29] MEDS: SPIRONOLACTONE-HCTZ 25-25MG 1 EACH TAB PO SCH (09:08)
[2020-05-29] MEDS: SYMBICORT 80-4.5 MCG INHALER INHALATION SCH ×2 (09:30→20:12)
[2020-05-29 11:58] LABS: Glucose,Whole Blood 79 mg/dL (75-99)
[2020-05-29] MEDS: VANCOMYCIN 1,750 MG in SODIUM CHLORIDE 0.9% 500 ML 500 ML IVPB SCH (15:54)
[2020-05-29] MEDS: SODIUM CHLORIDE 0.9% 1,000 ML IV SCH (15:55)
[2020-05-29 17:04] LABS: Glucose,Whole Blood 86 mg/dL (75-99)
[2020-05-29] MEDS: MONTELUKAST 10 MG TAB PO SCH (19:55)
[2020-05-30 05:34] LABS: Appearance,Urine Clear (Clear); Bilirubin,Urine Negative (Negative); Blood,Urine Negative (Negative); Color,Urine Yellow; Glucose,Urine (UA) Negative (Negative); Ketones,Urine Negative (Negative); Leukocyte Esterase,Urine Negative (Negative); Nitrite,Urine Negative (Negative); Protein,Urine Trace (Negative); Specific Gravity,Urine 1.018 (1.001-1.035); Urobilinogen,Urine <2.0 mg/dL (<2.0)
[2020-05-30] MEDS: LEVOTHYROXINE 75 MCG TAB PO SCH (05:40)
[2020-05-30 07:00] LABS: Basophils % (A) 1 %; Eosinophils # (A) 0.1 k/uL (0-0.7); Eosinophils % (A) 3 %; HCT 36.3 % (34.0-46.0); HGB 11.6 gm/dL (11.4-16.0); Lymphocytes # (A) 0.9 k/uL (1.0-4.8); Lymphocytes % (A) 27 %; MCH 31.4 pg (25.0-35.0); MCV 98.1 fL (80.0-100.0); Mean Platelet Volume 6.7; Monocytes # (A) 0.7 k/uL (0-1.0); Monocytes % (A) 19 %; Neutrophils # (A) 1.6 k/uL (1.3-7.7); Neutrophils % (A) 47 %; Platelet Count 177 k/uL (150-450); RDW 13.4 % (11.5-15.5); WBC 3.4 k/uL (3.8-10.6)
[2020-05-30 07:31] LABS: ALT 11 U/L (4-34); AST 29 U/L (14-36); Albumin/Globulin Ratio 1.4; Alkaline Phosphatase 55 U/L (38-126); Globulin 2.2 g/dL; Total Bilirubin 0.4 mg/dL (0.2-1.3); Total Protein 5.2 g/dL (6.3-8.2)
[2020-05-30 08:16] LABS: African American GFR (CKD) >90 (>60 ml/min/1.73 sqM); Anion Gap 4 mmol/L; Blood Urea Nitrogen 12 mg/dL (7-17); Calcium 8.7 mg/dL (8.4-10.2); Carbon Dioxide 34 mmol/L (22-30); Chloride 94 mmol/L (98-107); Glucose 75 mg/dL (74-99); Non-African American GFR(CKD) >90 (>60 ml/min/1.73 sqM); Potassium 4.3 mmol/L (3.5-5.1); Sodium 132 mmol/L (137-145)
--- NOTE | 2020-05-30 08:33 | P.PN ---
Subjective Progress Note Date: 05/30/20 Principal diagnosis: Bilateral lower leg extremity cellulitis 65-year-old female with past medical history of asthma, COPD, diabetes mellitus, fibromyalgia, GERD, hypertension, DJD, peripheral neuropathy, difficulty with ambulation was evaluated in Dr. Andrzej Wheeler's office on 05/28/2020sent to the emergency department due to bilateral lower extremity erythema patient had exte nsive diagnostic workup in the emergency roomrevealed bilateral lower extremity cellulitis patient complained of exertional dyspnea, generalized weakness, and bilateral lower extremity swelling. Patient's antibiotic therapy switched to cefepime 1 g 8 hours due to culture and sensitivity from past for Pseudomonas will continue vancomycin for suspected MRSA. She decrease in swelling and erythema to bilateral lower extremities. Patient was placed on Aldactone and hydrochlorothiazide for diuresis. Objective - Vital Signs Vital signs: Vital Signs Temp 97.8 F 05/30/20 05:00 Pulse 64 05/30/20 05:00 Resp 18 05/30/20 05:00 BP 130/72 05/30/20 05:00 Pulse Ox 97 05/30/20 05:00 Intake & Output 05/29/20 05/30/20 05/30/20 18:59 06:59 18:59 Intake Total 450 Output Total 800 Balance 450 -800 Intake: Intake, IV Titration 210 Amount Cefepime 1 gm In Sodium 50 Chloride 0.9% 50 ml @ 12. 5 mls/hr IVPB Q8HR JEIMY Rx #:[id number] Sodium Chloride 0.9% 1, 160 000 ml @ 20 mls/hr IV . Q24H JEIMY Rx#:[id number] Oral 240 Output: Urine 800 Straight 800 Other: Voiding Method Toilet Toilet # Voids 1 - Constitutional General appearance: Present: morbidly obese - EENT Eyes: Present: EOMI, PERRLA Ears: bilateral: normal - Neck Carotids: bilateral: upstroke normal Thyroid: bilateral: normal size - Respiratory Respiratory: bilateral: diminished - Cardiovascular Heart sounds: normal: S1, S2 - Peripheral edema leg Peripheral Edema: bilateral: 4+ (Anasarca) - Peripheral pulses dorsalis pedis Peripheral Pulses: bilateral: Diminished - Gastrointestinal General gastrointestinal: Present: normal bowel sounds - Integumentary Integumentary: Present: cellulitis (Bilateral lower extremities), normal turgor - Neurologic Neurologic: Present: CNII-XII intact - Musculoskeletal Musculoskeletal: Present: generalized weakness - Psychiatric Psychiatric: Present: A&O x's 3, appropriate affect, intact judgment & insight - Allied health notes Allied health notes reviewed: nursing - Labs CBC & Chem 7: 05/30/20 06:05 05/30/20 06:05 Labs: Abnormal Lab Results - Last 24 Hours (Table) 05/30/20 05/30/20 05/30/20 Range/Units 04:40 06:05 06:05 WBC 3.4 L (3.8-10.6) k/uL RBC 3.70 L (3.80-5.40) m/uL Lymphocytes # 0.9 L (1.0-4.8) k/uL Sodium 132 L (137-145) mmol/L Chloride 94 L (98-107) mmol/L Carbon Dioxide 34 H (22-30) mmol/L Total Protein 5.2 L (6.3-8.2) g/dL Albumin 3.0 L (3.5-5.0) g/dL Urine Protein Trace H (Negative) Microbiology - Last 24 Hours (Table) 05/27/20 15:05 Blood Culture - Preliminary Blood No Growth after 48 hours Assessment and Plan Assessment: Acute bilateral lower extremity cellulitis Hyponatremia Asthma COPD Diabetes mellitus type 2 Fibromyalgia GERD Degenerative joint disease Anxiety Depression Bipolar unspecified (1) Bilateral lower leg cellulitis Current Visit: Yes Status: Acute Priority: High Code(s): L03.116 - CELLULITIS OF LEFT LOWER LIMB; L03.115 - CELLULITIS OF RIGHT LOWER LIMB SNOMED Code(s): 918278943 Plan: Acute bilateral lower extremity cellulitiscontinue IV antibiotic-vancomycin and cefepime Hyponatremia-continue to monitor Anasarcadiuresis Echocardiogram ordered awaiting diagnostic testing results Physical therapy to encourage ambulation Continue medical management Time with Patient: Greater than 30
[2020-05-30] MEDS: amLODIPine 5 MG TAB PO SCH (08:54)
[2020-05-30] MEDS: lisinopriL 20 MG TAB PO SCH (08:54)
[2020-05-30] MEDS: PANTOPRAZOLE 40 MG TABLET PO SCH (08:54)
[2020-05-30] MEDS: GABAPENTIN 400 MG CAP PO SCH ×3 (08:54→20:58)
[2020-05-30] MEDS: busPIRone HCl 10 MG TAB PO SCH ×2 (08:54→20:58)
[2020-05-30] MEDS: CYCLOBENZAPRINE 10 MG TAB PO SCH ×2 (08:54→20:58)
[2020-05-30] MEDS: NICOTINE 21MG/24HR PATCH TRANSDERM SCH (08:55)
[2020-05-30] MEDS: NYSTATIN 100,000 UNIT/GM POWD 15 GM TOPICAL SCH ×2 (08:55→20:57)
[2020-05-30] MEDS: HEPARIN SODIUM,PORCINE 5,000 UNIT/ML 1 ML VIAL SQ SCH ×2 (08:55→20:57)
[2020-05-30] MEDS: LORATADINE 10 MG TAB PO SCH (08:55)
[2020-05-30] MEDS: lamoTRIgine 100 MG TAB PO SCH ×2 (08:55→20:57)
[2020-05-30] MEDS: CEFEPIME 1 GM in SODIUM CHLORIDE 0.9% 50 ML IVPB SCH ×2 (08:55→15:48)
[2020-05-30] MEDS: DIVALPROEX ER 500 MG TAB.ER.24H PO SCH ×3 (08:55→20:57)
[2020-05-30] MEDS: PARoxetine 20 MG TAB PO SCH (08:55)
[2020-05-30] MEDS: VANCOMYCIN 1,750 MG in SODIUM CHLORIDE 0.9% 500 ML 500 ML IVPB SCH ×2 (08:55→23:37)
[2020-05-30] MEDS: SPIRONOLACTONE-HCTZ 25-25MG 1 EACH TAB PO SCH (08:55)
[2020-05-30] MEDS: MUPIROCIN 2% OINT 22 GM TUBE TOPICAL SCH ×2 (08:56→20:58)
[2020-05-30] MEDS: SYMBICORT 80-4.5 MCG INHALER INHALATION SCH ×2 (09:04→20:22)
--- NOTE | 2020-05-30 14:45 | CDI ---
Documentation Clarification Form Date: 05/30/2020 02:33:04 PM From: Aleena OwensMedinaDANIELITO wu, CCDS Admit Date: 05/27/2020 02:30:00 PM Patient Name: Haydee Mcpherson Visit Number: [id number] Discharge Date: ATTENTION: The Clinical Documentation Specialists (CDI) and [facility] Coding Staff appreciate your assistance in clarifying documentation. Please respond to the clarification below the line at the bottom and electronically sign. The CDI & [facility] Coding staff will review the response and follow-up if needed. Please note: Queries are made part of the Legal Health Record. If you have any questions, please contact the author of this message via ITS. Dr. Andrzej Wheeler: Asthma is documented in the 05/27 ED Note, the 05/27 History & Physical and subsequent Progress Notes under the patient's history without further specificity. History/risk factors: Asthma, COPD, DM, Fibromyalgia, DJD, Pneumonia, PE, Peripheral Neuropathy, GERD, Hypertension Home meds: Zestril, Lamictal, BuSpar, Norvasc, Paxil, Habitrol, Bactroban, Singulair, Synthroid, Neurontin, Wixela, Depakote, Flexeril & ProAir Clinical Indicators: Patient was sent to the ED on 05/27 by his PCP for bilateral lower extremity cellulitis, swelling & erythema. Admitted with cellulitis. VS 05/27: T 98.7, P 76, R 18, BP 151/73, PO 96 RA - 92 2Lnc CXR 05/28 for SOB: Pleural-parenchymal changes demonstrate mild improvement with reduction in amount of consolidation in the lung bases. Persistent interstitial pattern seen with tiny effusions. Correlate for improving pneumonia vs CHF. Treatment: ECHO ordered (pending), IV fluid 1,000 mls @ 20 mls/hr, IV Rocephin, po Reeds, IV Vancomycin, INH Ventolin, INH Symbicort, Buspar & Singulair, O2 2Lnc. In your professional opinion, can you please further specify the following, if known? COPD (specify with or without exacerbation) Chronic obstructive bronchitis Other, please specify ___ Unable to determine Asthma Type & Severity: o Severity: Mild intermittent Mild persistent Moderate persistent Severe persistent Other, please specify ____ Unable to determine o Form or Type Exercise induced bronchospasm Extrinsic allergic Intrinsic nonallergic Other, please specify____ Unable to determine (Last Revision: October 2017) MTDD
[2020-05-30] MEDS: SODIUM CHLORIDE 0.9% 1,000 ML IV SCH (15:48)
--- NOTE | 2020-05-30 16:28 | ECHOF ---
Referral Reason:exertional shortness of breath MEASUREMENTS -------- HEIGHT: 154.9 cm WEIGHT: 102.1 kg BP: 165/81 RVIDd: 3.3 cm (< 3.3) RAP: 5.00 mmHg RVSP: 33.95 mmHg FINDINGS -------- Sinus rhythm. Limited Study Overall left ventricular systolic function is normal with, an EF between 60 - 65 %. The right ventricle is mildly enlarged. Mild tricuspid regurgitation present. There is borderline pulmonary hypertension. The right ventr icular systolic pressure, as measured by Doppler, is 33.95mmHg. There is no pericardial effusion. CONCLUSIONS -------- 1. Overall left ventricular systolic function is normal with, an EF between 60 - 65 %. 2. The right ventricle is mildly enlarged. 3. Mild tricuspid regurgitation present. 4. There is borderline pulmonary hypertension. 5. The right ventricular systolic pressure, as measured by Doppler, is 33.95mmHg. 6. There is no pericardial effusion. LIFE SKILLS EDUCATOR: Sarah De La Vega RDCS
--- NOTE | 2020-05-30 18:16 | CONS ---
CONSULTATION This is a 65-year-old female known to me from the past. Patient has history of COPD, diabetes, hypertension, history of pneumonia, history of pulmonary embolism in the past. The patient came with history of bilateral cellulitis of the lower extremity. Patient had history of fall and she had a superficial wound on the left hogan area. ALLERGIES: ALLERGY TO CODEINE AND PENICILLIN. SOCIAL HISTORY: History of current smoking. No history of alcohol intake. PHYSICAL EXAMINATION: The patient was seen in her room. Patient lying comfortably. Neck is supple. No jugular distention noted. Chest: The patient has diminished breath sounds at the lung bases. No rhonchi. First and second sounds present. Abdomen is protuberant. No mass. No mass palpable. Patient has marked swelling of both lower extremities with cellulitis and brown induration of the lower extremity. The patient is on IV antibiotics. PLAN: Silvadene cream to the both lower legs with compression wraps and 1 pillow elevation. At this point patient is stable. When discharged from the hospital, we will follow in my office. MMODL / IJN: [id number] /
[2020-05-30 20:33] VITALS: TEMP 97.7
[2020-05-30] MEDS: MONTELUKAST 10 MG TAB PO SCH (20:57)
[2020-05-30] MEDS ORDERED: VANCOMYCIN TROUGH DUE 1 EACH MISC MISCELLANE ONE (22:00)
[2020-05-31] MEDS: CEFEPIME 1 GM in SODIUM CHLORIDE 0.9% 50 ML IVPB SCH ×2 (00:34→08:03)
[2020-05-31 05:09] VITALS: BP 155/65; PULSE 72; RESP 20
[2020-05-31] MEDS: LEVOTHYROXINE 75 MCG TAB PO SCH (05:13)
[2020-05-31 06:24] LABS: Basophils % (A) 1 %; Eosinophils # (A) 0.1 k/uL (0-0.7); Eosinophils % (A) 3 %; HCT 35.4 % (34.0-46.0); HGB 11.8 gm/dL (11.4-16.0); Lymphocytes # (A) 1.2 k/uL (1.0-4.8); Lymphocytes % (A) 29 %; MCH 31.9 pg (25.0-35.0); MCHC 33.3 g/dL (31.0-37.0); Mean Platelet Volume 7.2; Monocytes # (A) 0.5 k/uL (0-1.0); Monocytes % (A) 13 %; Neutrophils # (A) 2.1 k/uL (1.3-7.7); Neutrophils % (A) 52 %; Platelet Count 150 k/uL (150-450); RBC 3.69 m/uL (3.80-5.40); RDW 13.1 % (11.5-15.5); WBC 4.1 k/uL (3.8-10.6)
[2020-05-31 06:31] LABS: African American GFR (CKD) >90 (>60 ml/min/1.73 sqM); Albumin/Globulin Ratio 1.3; Anion Gap 1 mmol/L; Carbon Dioxide 37 mmol/L (22-30); Chloride 92 mmol/L (98-107); Globulin 2.3 g/dL; Glucose 76 mg/dL (74-99); Non-African American GFR(CKD) >90 (>60 ml/min/1.73 sqM); Potassium 4.2 mmol/L (3.5-5.1); Sodium 130 mmol/L (137-145); Total Protein 5.3 g/dL (6.3-8.2)
[2020-05-31 06:33] LABS: ALT 11 U/L (4-34); AST 27 U/L (14-36); Alkaline Phosphatase 58 U/L (38-126); Blood Urea Nitrogen 8 mg/dL (7-17); Total Bilirubin 0.3 mg/dL (0.2-1.3)
--- NOTE | 2020-05-31 07:50 | P.PN ---
Subjective Progress Note Date: 05/31/20 Principal diagnosis: Bilateral lower leg extremity cellulitis Carolynsarca 65-year-old female with past medical history of asthma, COPD, diabetes mellitus, fibromyalgia, GERD, hypertension, DJD, peripheral neuropathy, difficulty with ambulation was evaluated in Dr. Andrzej Wheeler's office on 05/28/2020sent to the emergency department due to bilateral lower extremity erythema patient had extensive diagnostic workup in the emergency roomrevealed bilateral lower extremity cellulitis. Patient ambulating with assistance ,patient denies any complaints at this time. Decreased erythema and swelling noted to bilateral lower extremities. Objective - Vital Signs Vital signs: Vital Signs Temp 97.7 F 05/31/20 05:00 Pulse 72 05/31/20 05:00 Resp 20 05/31/20 05:00 BP 155/65 05/31/20 05:00 Pulse Ox 90 L 05/31/20 05:00 Intake & Output 05/30/20 05/31/20 05/31/20 18:59 06:59 18:59 Intake Total 550 Balance 550 Intake: Intake, IV Titration 550 Amount Cefepime 1 gm In Sodium 50 Chloride 0.9% 50 ml @ 12. 5 mls/hr IVPB Q8HR JE[facility] Rx #:[id number] Vancomycin 1,750 mg In 500 Sodium Chloride 0.9% 500 ml 500 ml @ 167 mls/hr IVPB Q16H JEIMY Rx#: [id number] Other: Voiding Method Toilet Toilet Bedside Commode Bedside Commode Diaper Diaper # Voids 4 1 - Constitutional General appearance: Present: morbidly obese - EENT Eyes: Present: EOMI, PERRLA Ears: bilateral: normal - Neck Neck: Present: normal ROM Carotids: bilateral: upstroke normal Thyroid: bilateral: normal size - Respiratory Respiratory: bilateral: CTA (Anterior and posterior) - Cardiovascular Heart sounds: normal: S1, S2 - Peripheral edema leg Peripheral Edema: bilateral: 3+ (Gen bandages applied), 4+ - Peripheral pulses posterior tibial Peripheral Pulses: bilateral: Normal - Gastrointestinal General gastrointestinal: Present: normal bowel sounds - Integumentary Integumentary Comment(s): Bilateral lower extremities Integumentary: Present: cellulitis - Neurologic Neurologic: Present: CNII-XII intact - Musculoskeletal Musculoskeletal: Present: generalized weakness - Psychiatric Psychiatric: Present: A&O x's 3, appropriate affect, intact judgment & insight - Allied health notes Allied health notes reviewed: nursing - Labs CBC & Chem 7: 05/31/20 06:08 05/31/20 06:08 Labs: Abnormal Lab Results - Last 24 Hours (Table) 05/30/20 05/31/20 05/31/20 Range/Units 06:05 06:08 06:08 RBC 3.69 L (3.80-5.40) m/uL Sodium 132 L 130 L (137-145) mmol/L Chloride 94 L 92 L (98-107) mmol/L Carbon Dioxide 34 H 37 H (22-30) mmol/L Total Protein 5.3 L (6.3-8.2) g/dL Albumin 3.0 L (3.5-5.0) g/dL Microbiology - Last 24 Hours (Table) 05/27/20 15:05 Blood Culture - Preliminary Blood No Growth after 72 hours 05/30/20 04:40 Urine Culture - Preliminary Urine,Catheterized - Imaging and Cardiology Echocardiogram Assessment and Plan Assessment: Acute bilateral lower extremity cellulitis-continue IV antibiotics and conversion to by mouth antibiotics for discharge Hyponatremia-continue to monitor Asthma COPD Diabetes mellitus type 2 Fibromyalgia GERD Degenerative joint disease Anxiety Depression Bipolar unspecified (1) Bilateral lower leg cellulitis Current Visit: Yes Status: Acute Priority: High Code(s): L03.116 - CELLUL ITIS OF LEFT LOWER LIMB; L03.115 - CELLULITIS OF RIGHT LOWER LIMB SNOMED Code(s): 535121124 Plan: Acute bilateral lower extremity cellulitiscontinue IV antibiotic-vancomycin and cefepime-conversion to oral antibiotics for discharge Hyponatremia-continue to monitor Anasarcadiuresis Physical therapy to encourage ambulation Hopeful discharge today Time with Patient: Greater than 30
[2020-05-31] MEDS: CYCLOBENZAPRINE 10 MG TAB PO SCH (07:51)
[2020-05-31] MEDS: DIVALPROEX ER 500 MG TAB.ER.24H PO SCH (07:51)
[2020-05-31] MEDS: PANTOPRAZOLE 40 MG TABLET PO SCH (07:51)
[2020-05-31] MEDS: lisinopriL 20 MG TAB PO SCH (07:51)
[2020-05-31] MEDS: GABAPENTIN 400 MG CAP PO SCH (07:51)
[2020-05-31] MEDS: NICOTINE 21MG/24HR PATCH TRANSDERM SCH (07:51)
[2020-05-31] MEDS: SPIRONOLACTONE-HCTZ 25-25MG 1 EACH TAB PO SCH (07:52)
[2020-05-31] MEDS: amLODIPine 5 MG TAB PO SCH (07:52)
[2020-05-31] MEDS: LORATADINE 10 MG TAB PO SCH (07:52)
[2020-05-31] MEDS: busPIRone HCl 10 MG TAB PO SCH (07:52)
[2020-05-31] MEDS: lamoTRIgine 100 MG TAB PO SCH (07:52)
[2020-05-31] MEDS: HEPARIN SODIUM,PORCINE 5,000 UNIT/ML 1 ML VIAL SQ SCH (07:52)
[2020-05-31] MEDS: SYMBICORT 80-4.5 MCG INHALER INHALATION SCH (07:54)
[2020-05-31] MEDS: PARoxetine 20 MG TAB PO SCH (08:01)
[2020-05-31] MEDS: NYSTATIN 100,000 UNIT/GM POWD 15 GM TOPICAL SCH (08:06)
[2020-05-31] MEDS: MUPIROCIN 2% OINT 22 GM TUBE TOPICAL SCH (08:06)
[2020-05-31] MEDS: SODIUM CHLORIDE 0.9% 1,000 ML IV SCH (16:43)
--- NOTE | 2020-05-31 17:23 | P.DS ---
Providers Date of admission: 05/27/20 14:30 Expected date of discharge: 05/31/20 Attending physician: Andrzej Wheeler Consults: 05/30/20 08:58 Consult Physician Stat Consulting Provider: Alphonso Ramon Consult Reason/Comments: bilateral lower leg edema Do you want consulting provider notified?: Already Contacted Primary care physician: Andrzej Wheeler - Discharge Diagnosis(es) (1) Bilateral lower leg cellulitis Acute on chronic bilateral cellulitislast Gram stain was Pseudomonas positive. Patient received vancomycin and cefepime IV. Decreased and swelling and e rythema noted. Patient to follow-up with vascular for chronic lymphedema Current Visit: Yes Status: Acute Priority: High Hospital Course: 65-year-old female presented to Dr. Wheeler's office seen by nurse practitioner sent to the emergency department due to bilateral lower extremity cellulitis. Patient was evaluated in the emergency room and admitted for bilateral lower extremity cellulitis with chronic lymphedema. Patient received broad-spectrum antibiotics vancomycin and cefepimefor for past Gram stainpseudomonas. Vascular was consulted due to chronic lymphedema and anasarcadressings and treatment plan recommendations provided by vascular. Patient to follow-up with vascular for chronic lymphedema and anasarca. Patient started on Aldactone and hydrochlorothiazide for mild diuresis continue to monitor for hyponatremia due to diuresis and atypical antipsychotics. Patient to follow-up with home care and physical therapy. Patient to follow-up with our services and vascular Assessment: Acute bacterial cellulitis lower extremities Hyponatremiacontinue to monitor Chronic lymphedema and anasarcastarting diuretic therapy; following up with vascular for recommendations for treatment COPDcontinue maintenance inhaler, and bronchodilator as needed Intermittent asthmacontinue maintenance inhaler, and bronchodilator as needed GERD Diabetes mellitus type 2 Degenerative disc disease Bipolar Mixed anxiety and depression Fibromyalgia Health Concerns: Poor compliance with medication regimen Difficulty with ambulation Pertinent Studies: Chest x-ray Echocardiogram Procedures: None noted Patient Condition at Discharge: Stable Plan - Discharge Summary Discharge Rx Participant: No New Discharge Prescriptions: New Spironolactone-Hctz 25-25Mg [Aldactazide 25-25 MG] 1 each PO DAILY #30 tab Levofloxacin [Levaquin] 750 mg PO DAILY 7 Days #7 tab Continue lisinopriL [Zestril] 20 mg PO DAILY lamoTRIgine [LaMICtal] 100 mg PO BID busPIRone HCL [Buspar] 30 mg PO BID Montelukast [Singulair] 10 mg PO HS Gabapentin [Neurontin] 800 mg PO TID Albuterol Sulfate [Proair Hfa] 2 puff INHALATION RT-Q6H PRN PRN Reason: Shortness Of Breath PARoxetine [Paxil] 20 mg PO DAILY Cyclobenzaprine [Flexeril] 10 mg PO BID Fluticasone Propion/Salmeterol [Wixela 250-50 Inhub] 1 puff INHALATION RT-BID Levothyroxine Sodium [Synthroid] 150 mcg PO DAILY Mupirocin 2% Oint [Bactroban 2% Oint] 1 applic TOPICAL BID amLODIPine [Norvasc] 5 mg PO DAILY #30 tab SILVER sulfADIAZINE CREAM [Silvadene Cream] 1 applic TOPICAL BID Divalproex ER [Depakote ER] 500 mg PO TID Nystatin [Nystop] 1 applic TOPICAL BID Discontinued Nicotine 21Mg/24Hr Patch [Habitrol] 1 patch TRANSDERM DAILY 10 Days #10 patch Discharge Medication List Gabapentin [Neurontin] 800 mg PO TID 12/17/13 [History] Montelukast [Singulair] 10 mg PO HS 12/17/13 [History] busPIRone HCL [Buspar] 30 mg PO BID 12/17/13 [History] lamoTRIgine [LaMICtal] 100 mg PO BID 12/17/13 [History] lisinopriL [Zestril] 20 mg PO DAILY 12/17/13 [History] Albuterol Sulfate [Proair Hfa] 2 puff INHALATION RT-Q6H PRN 05/07/18 [History] Cyclobenzaprine [Flexeril] 10 mg PO BID 06/01/19 [History] Fluticasone Propion/Salmeterol [Wixela 250-50 Inhub] 1 puff INHALATION RT-BID 06/01/19 [History] PARoxetine [Paxil] 20 mg PO DAILY 06/01/19 [History] Levothyroxine Sodium [Synthroid] 150 mcg PO DAILY 03/29/20 [History] Mupirocin 2% Oint [Bactroban 2% Oint] 1 applic TOPICAL BID 03/29/20 [History] amLODIPine [Norvasc] 5 mg PO DAILY #30 tab 04/01/20 [Rx] SILVER sulfADIAZINE CREAM [Silvadene Cream] 1 applic TOPICAL BID 04/26/20 [History] Divalproex ER [Depakote ER] 500 mg PO TID 05/27/20 [History] Nystatin [Nystop] 1 applic TOPICAL BID 05/27/20 [History] Levofloxacin [Levaquin] 750 mg PO DAILY 7 Days #7 tab 05/31/20 [Rx] Spironolactone-Hctz 25-25Mg [Aldactazide 25-25 MG] 1 each PO DAILY #30 tab 05/31/20 [Rx] Follow up Appointment(s)/Referral(s): Andrzej Wheeler MD [Primary Care Provider] - 06/04/20 11:00 am [facility], [NON-STAFF] - 1 Week Alphonso Ramon MD [STAFF PHYSICIAN] - 06/06/20 12:00 pm Patient Instructions/Handouts: Silver Sulfadiazine (On the skin), Spironolactone/Hydrochlorothiazide (By mouth), Levofloxacin (By mouth), Cellulitis (DC) Activity/Diet/Wound Care/Special Instructions: Silvadene cream to bilateral lower extremities with compression wraps & one pillow elevation Discharge Disposition: HOME WITH HOME HEALTH SERVICES
== END 2020-05-31 17:17 | disposition home or self-care (01) | DRG 603 ==
LOC: EC 12:35 → 6NMEDSUR 14:30
PROVIDERS: ADMIT Family Medicine; ATTEND Family Medicine
DX: L03.115 Cellulitis of right lower limb (principal); E87.1 Hypo-osmolality and hyponatremia; L03.116 Cellulitis of left lower limb; M79.7 Fibromyalgia; J44.9 Chronic obstructive pulmonary disease, unspecified; M19.90 Unspecified osteoarthritis, unspecified site; E11.42 Type 2 diabetes mellitus with diabetic polyneuropathy; F17.200 Nicotine dependence, unspecified, uncomplicated; I89.0 Lymphedema, not elsewhere classified; M41.9 Scoliosis, unspecified; I10 Essential (primary) hypertension; J45.20 Mild intermittent asthma, uncomplicated; F41.8 Other specified anxiety disorders; F31.9 Bipolar disorder, unspecified; T50.2X5A Adverse effect of carbonic-anhydrase inhibitors, benzothiadiazides and other diuretics, initial encounter; K21.9 Gastro-esophageal reflux disease without esophagitis; Z88.0 Allergy status to penicillin; Z88.2 Allergy status to sulfonamides; Z79.890 Hormone replacement therapy; Z79.899 Other long term (current) drug therapy; Z88.5 Allergy status to narcotic agent; Z98.84 Bariatric surgery status; Z91.14 Patient's other noncompliance with medication regimen; Z90.710 Acquired absence of both cervix and uterus; Z87.19 Personal history of other diseases of the digestive system; Z87.01 Personal history of pneumonia (recurrent); Z86.711 Personal history of pulmonary embolism; Z82.49 Family history of ischemic heart disease and other diseases of the circulatory system; Z87.440 Personal history of urinary (tract) infections; Z90.49 Acquired absence of other specified parts of digestive tract; Z90.89 Acquired absence of other organs; Z98.890 Other specified postprocedural states; Z98.891 History of uterine scar from previous surgery
CPT/HCPCS: 71046; 80053; 80164; 80202; 81003; 83605; 83735; 83880; 84145; 85025; 86140; 87040; 87086; 93308; 94640; 96365; 96366; 96375; 99284

== ENCOUNTER 2020-06-10 12:14 | Inpatient (IN) | payer MEDICARE ==
--- NOTE | 2020-06-10 13:29 | ED ---
General Adult HPI - General Chief complaint: Dizziness Stated complaint: dizziness/blurred vision Time Seen by Provider: 06/10/20 12:20 Source: patient, RN notes reviewed, old records reviewed Mode of arrival: wheelchair Limitations: physical limitation - History of Present Illness Initial comments: This is a 65-year-old female with past medical history significant for cellulitis of both legs and hypertension. Patient comes in today because since last she has been feeling weak and somewhat confused and very dizzy. Patient also states she is somewhat short of breath to patient seems to doze off quite a bit according to her . Patient denies any chest pain or palpitations. Patient denies any fever or chills. Patient is alert and oriented 3 but sometimes has difficulty answering the question until I repeated 2 or 3 times. states this is not normal for her she appears altered in that way to him. Patient says her vision is off because everything seems like it's moving and when she looks the floor the floor looks like it spinning. Patient states she has a headache that is only mild. Patient denies any numbness or focal weakness. Patient states overall she feels weak. Patient states she seems to just stare off and doesn't know why she just or cough. - Related Data Home Medications Medication Instructions Recorded Confirmed Gabapentin [Neurontin] 800 mg PO TID 12/17/13 06/10/20 Montelukast [Singulair] 10 mg PO HS 12/17/13 06/10/20 busPIRone HCL [Buspar] 30 mg PO BID 12/17/13 06/10/20 lamoTRIgine [LaMICtal] 100 mg PO BID 12/17/13 06/10/20 lisinopriL [Zestril] 20 mg PO DAILY 12/17/13 06/10/20 Albuterol Sulfate [Proair Hfa] 2 puff INHALATION RT-Q6H PRN 05/07/18 06/10/20 Cyclobenzaprine [Flexeril] 10 mg PO BID 06/01/19 06/10/20 Fluticasone Propion/Salmeterol 1 puff INHALATION RT-BID 06/01/19 06/10/20 [Wixela 250-50 Inhub] PARoxetine [Paxil] 20 mg PO DAILY 06/01/19 06/10/20 Levothyroxine Sodium [Synthroid] 150 mcg PO DAILY 03/29/20 06/10/20 Mupirocin 2% Oint [Bactroban 2% 1 applic TOPICAL BID 03/29/20 06/10/20 Oint] SILVER sulfADIAZINE CREAM 1 applic TOPICAL BID 04/26/20 06/10/20 [Silvadene Cream] Divalproex ER [Depakote ER] 500 mg PO TID 05/27/20 06/10/20 Nystatin [Nystop] 1 applic TOPICAL BID 05/27/20 06/10/20 Spironolactone-Hctz 25-25Mg 1 tab PO DAILY 06/10/20 06/10/20 [Aldactazide 25-25 MG] Previous Rx's Medication Instructions Recorded amLODIPine [Norvasc] 5 mg PO DAILY #30 tab 04/01/20 Allergies Allergy/AdvReac Type Severity Reaction Status Date / Time codeine Allergy Unknown Verified 06/10/20 13:27 Childhood Penicillins Allergy Rash/Hives Verified 06/10/20 13:27 Sulfa (Sulfonamide Allergy Rash/Hives Verified 06/10/20 13:27 Antibiotics) Review of Systems ROS Statement: Those systems with pertinent positive or pertinent negative responses have been documented in the HPI. ROS Other: All systems not noted in ROS Statement are negative. Past Medical History Past Medical History: Asthma, COPD, Diabetes Mellitus, Fibromyalgia, GERD/Reflux, Hypertension, Osteoarthritis (OA), Pneumonia, Pulmonary Embolus (PE), Skin Disorder, Thyroid Disorder Additional Past Medical History / Comment(s): Cervical disc disease/stenosis, scoliosis, recently having numbness/tingling L side of face/neck, recently saw boiler operator for L hemidiaphragmatic elevation-pt states she was told this was probably genetic, recently bronchitis and past bronchitis, pt states recent med change (water pill) d/t electrolyte problem/kidney function being affected, pt states she has had pulmonary emboli, past bilateral lower extremity cellulitis, edema lower extremities, IBS, hemorrhoids, benign colon polyps, sinus problems, UTIs, bacteremia/sepsis, cardiac murmur, past L ankle and L wrist fractures. History of Any Multi-Drug Resistant Organisms: None Reported Past Surgical History: Adenoidectomy, Section, Cholecystectomy, Hysterectomy, Tonsillectomy Additional Past Surgical History / Comment(s): EGD, colonoscopies, gastric bypass, surgery for deviated septum Past Anesthesia/Blood Transfusion Reactions: Previous Problems w/ Anesthesia Additional Past Anesthesia/Blood Transfusion Reaction / Comment(s): itching, some kind of problem after gastric bypass-not sure what happened Past Psychological History: Anxiety, Bipolar, Depression Smoking Status: Current every day smoker Past Alcohol Use History: None Reported Past Drug Use History: None Reported - Past Family History Mother Family Medical History: Congestive Heart Failure (CHF), Hypertension Father Additional Family Medical History / Comment(s): Father at the age of 45 yrs d/t having had rheumatic fever as a child and heart valve disease. General Exam - General Exam Comments Initial Comments: GENERAL: Patient is well-developed and well-nourished. Patient is nontoxic and well- hydrated and is in mild distress. Patient seems to almost go off to sleep when I am asking her questions but when I get her awake and she answers accurately. ENT: Neck is soft and supple. No significant lymphadenopathy is noted. Oropharynx is clear. Moist mucous membranes. Neck has full range of motion without eliciting any pain. EYES: The sclera were anicteric and conjunctiva were pink and moist. Patient has difficulty looking to the right and there does appear to be nystagmus in both eyes. Eyelids were unremarkable. PULMONARY: Unlabored respirations. Good breath sounds bilaterally. No audible rales rhonchi or wheezing was noted. CARDIOVASCULAR: There is a regular rate and rhythm without any murmurs gallops or rubs. ABDOMEN: Soft and nontender with normal bowel sounds. SKIN: Patient's nailbeds are purple NEUROLOGIC: Patient is alert and oriented x3. Cranial nerves II through XII are grossly intact. Motor and sensory are also intact. Normal speech, volume and content. Symmetrical smile. Patient had difficulty doing [id number] with either hand and I'm not sure if it was because she was losing concentration or she was unable to actually do it but either way it was bilateral MUSCULOSKELETAL: Normal extremities with adequate strength and full range of motion. No lower extremity swelling or edema. No calf tenderness. LYMPHATICS: No significant lymphadenopathy is noted PSYCHIATRIC: Normal psychiatric evaluation. Limitations: physical limitation Course Vital Signs 06/10/20 06/10/20 12:18 15:00 Temperature 97.1 F L 97.7 F Pulse Rate 113 H 94 Respiratory 18 18 Rate Blood Pressure 147/77 134/72 O2 Sat by Pulse 99 97 Oximetry Medical Decision Making - Medical Decision Making EKG shows normal sinus rhythm at 65 bpm UT interval 176 QRS is under 12 QT interval 414 QTC is 4:30. Patient's EKG shows no ST segment elevation or depression. CT of the brain shows no acute abnormality. There are some areas are questionable for early pneumonia however the patient is not having a fever and does not have a white count. Patient's sodium was also gave her 500 mL bolus of fluid Spoke with [facility] agreed to admit the patient admitted the patient wrote admitting orders. - Lab Data Result diagrams: 06/10/20 13:22 06/10/20 13:22 Lab Results 06/10/20 06/10/20 06/10/20 Range/Units 13:22 13:22 13:22 WBC 10.4 (3.8-10.6) k/uL RBC 4.48 (3.80-5.40) m/uL Hgb 14.0 (11.4-16.0) gm/dL Hct 41.5 (34.0-46.0) % MCV 92.6 (80.0-100.0) fL MCH 31.3 (25.0-35.0) pg MCHC 33.8 (31.0-37.0) g/dL RDW 13.1 (11.5-15.5) % Plt Count 255 (150-450) k/uL MPV 6.9 Neutrophils % 71 % Lymphocytes % 14 % Monocytes % 11 % Eosinophils % 1 % Basophils % 1 % Neutrophils # 7.4 (1.3-7.7) k/uL Lymphocytes # 1.5 (1.0-4.8) k/uL Monocytes # 1.2 H (0-1.0) k/uL Eosinophils # 0.1 (0-0.7) k/uL Basophils # 0.1 (0-0.2) k/uL PT 9.8 (9.0-12.0) sec INR 0.9 (<1.2) APTT 27.8 (22.0-30.0) sec D-Dimer 2.08 H (<0.60) mg/L FEU Sodium 122 L (137-145) mmol/L Potassium 3.8 (3.5-5.1) mmol/L Chloride 80 L (98-107) mmol/L Carbon Dioxide 37 H (22-30) mmol/L Anion Gap 5 mmol/L BUN 13 (7-17) mg/dL Creatinine 1.02 (0.52-1.04) mg/dL Est GFR (CKD-EPI)AfAm 68 (>60 ml/min/1.73 sqM) Est GFR (CKD-EPI)NonAf 59 (>60 ml/min/1.73 sqM) Glucose 93 (74-99) mg/dL Calcium 9.1 (8.4-10.2) mg/dL Magnesium 2.0 (1.6-2.3) mg/dL Total Bilirubin 0.5 (0.2-1.3) mg/dL AST 26 (14-36) U/L ALT 9 (4-34) U/L Alkaline Phosphatase 80 (38-126) U/L Ammonia (<30) umol/L Troponin I (0.000-0.034) ng/mL NT-Pro-B Natriuret Pep pg/mL Total Protein 6.3 (6.3-8.2) g/dL Albumin 3.8 (3.5-5.0) g/dL Urine Color Urine Appearance (Clear) Urine pH (5.0-8.0) Ur Specific [place] (1.001-1.035) Urine Protein (Negative) Urine Glucose (UA) (Negative) Urine Ketones (Negative) Urine Blood (Negative) Urine Nitrite (Negative) Urine Bilirubin (Negative) Urine Urobilinogen (<2.0) mg/dL Ur Leukocyte Esterase (Negative) Urine RBC (0-5) /hpf Urine WBC (0-5) /hpf Ur Squamous Epith Cells (0-4) /hpf Hyaline Casts (0-2) /lpf Urine Mucus (None) /hpf Urine Opiates Screen (NotDetected) Ur Oxycodone Screen (NotDetected) Urine Methadone Screen (NotDetected) Ur Propoxyphene Screen (NotDetected) Ur Barbiturates Screen (NotDetected) U Tricyclic Antidepress (NotDetected) Ur Phencyclidine Scrn (NotDetected) Ur Amphetamines Screen (NotDetected) U Methamphetamines Scrn (NotDetected) U Benzodiazepines Scrn (NotDetected) Urine Cocaine Screen (NotDetected) U Marijuana (THC) Screen (NotDetected) Serum Alcohol <10 mg/dL Coronavirus (PCR) (Not Detectd) 06/10/20 06/10/20 06/10/20 Range/Units 13:22 13:22 13:22 WBC (3.8-10.6) k/uL RBC (3.80-5.40) m/uL Hgb (11.4-16.0) gm/dL Hct (34.0-46.0) % MCV (80.0-100.0) fL MCH (25.0-35.0) pg MCHC (31.0-37.0) g/dL RDW (11.5-15.5) % Plt Count (150-450) k/uL MPV Neutrophils % % Lymphocytes % % Monocytes % % Eosinophils % % Basophils % % Neutrophils # (1.3-7.7) k/uL Lymphocytes # (1.0-4.8) k/uL Monocytes # (0-1.0) k/uL Eosinophils # (0-0.7) k/uL Basophils # (0-0.2) k/uL PT (9.0-12.0) sec INR (<1.2) APTT (22.0-30.0) sec D-Dimer (<0.60) mg/L FEU Sodium (137-145) mmol/L Potassium (3.5-5.1) mmol/L Chloride (98-107) mmol/L Carbon Dioxide (22-30) mmol/L Anion Gap mmol/L BUN (7-17) mg/dL Creatinine (0.52-1.04) mg/dL Est GFR (CKD-EPI)AfAm (>60 ml/min/1.73 sqM) Est GFR (CKD-EPI)NonAf (>60 ml/min/1.73 sqM) Glucose (74-99) mg/dL Calcium (8.4-10.2) mg/dL Magnesium (1.6-2.3) mg/dL Total Bilirubin (0.2-1.3) mg/dL AST (14-36) U/L ALT (4-34) U/L Alkaline Phosphatase (38-126) U/L Ammonia <9 (<30) umol/L Troponin I <0.012 (0.000-0.034) ng/mL NT-Pro-B Natriuret Pep 321 pg/mL Total Protein (6.3-8.2) g/dL Albumin (3.5-5.0) g/dL Urine Color Urine Appearance (Clear) Urine pH (5.0-8.0) Ur Specific [place] (1.001-1.035) Urine Protein (Negative) Urine Glucose (UA) (Negative) Urine Ketones (Negative) Urine Blood (Negative) Urine Nitrite (Negative) Urine Bilirubin (Negative) Urine Urobilinogen (<2.0) mg/dL Ur Leukocyte Esterase (Negative) Urine RBC (0-5) /hpf Urine WBC (0-5) /hpf Ur Squamous Epith Cells (0-4) /hpf Hyaline Casts (0-2) /lpf Urine Mucus (None) /hpf Urine Opiates Screen (NotDetected) Ur Oxycodone Screen (NotDetected) Urine Methadone Screen (NotDetected) Ur Propoxyphene Screen (NotDetected) Ur Barbiturates Screen (NotDetected) U Tricyclic Antidepress (NotDetected) Ur Phencyclidine Scrn (NotDetected) Ur Amphetamines Screen (NotDetected) U Methamphetamines Scrn (NotDetected) U Benzodiazepines Scrn (NotDetected) Urine Cocaine Screen (NotDetected) U Marijuana (THC) Screen (NotDetected) Serum Alcohol mg/dL Coronavirus (PCR) (Not Detectd) 06/10/20 06/10/20 06/10/20 Range/Units 15:34 15:34 15:34 WBC (3.8-10.6) k/uL RBC (3.80-5.40) m/uL Hgb (11.4-16.0) gm/dL Hct (34.0-46.0) % MCV (80.0-100.0) fL MCH (25.0-35.0) pg MCHC (31.0-37.0) g/dL RDW (11.5-15.5) % Plt Count (150-450) k/uL MPV Neutrophils % % Lymphocytes % % Monocytes % % Eosinophils % % Basophils % % Neutrophils # (1.3-7.7) k/uL Lymphocytes # (1.0-4.8) k/uL Monocytes # (0-1.0) k/uL Eosinophils # (0-0.7) k/uL Basophils # (0-0.2) k/uL PT (9.0-12.0) sec INR (<1.2) APTT (22.0-30.0) sec D-Dimer (<0.60) mg/L FEU Sodium (137-145) mmol/L Potassium (3.5-5.1) mmol/L Chloride (98-107) mmol/L Carbon Dioxide (22-30) mmol/L Anion Gap mmol/L BUN (7-17) mg/dL Creatinine (0.52-1.04) mg/dL Est GFR (CKD-EPI)AfAm (>60 ml/min/1.73 sqM) Est GFR (CKD-EPI)NonAf (>60 ml/min/1.73 sqM) Glucose (74-99) mg/dL Calcium (8.4-10.2) mg/dL Magnesium (1.6-2.3) mg/dL Total Bilirubin (0.2-1.3) mg/dL AST (14-36) U/L ALT (4-34) U/L Alkaline Phosphatase (38-126) U/L Ammonia (<30) umol/L Troponin I (0.000-0.034) ng/mL NT-Pro-B Natriuret Pep pg/mL Total Protein (6.3-8.2) g/dL Albumin (3.5-5.0) g/dL Urine Color Yellow Urine Appearance Cloudy H (Clear) Urine pH 6.0 (5.0-8.0) Ur Specific [place] 1.015 (1.001-1.035) Urine Protein Negative (Negative) Urine Glucose (UA) Negative (Negative) Urine Ketones Negative (Negative) Urine Blood Negative (Negative) Urine Nitrite Negative (Negative) Urine Bilirubin Negative (Negative) Urine Urobilinogen <2.0 (<2.0) mg/dL Ur Leukocyte Esterase Moderate H (Negative) Urine RBC 4 (0-5) /hpf Urine WBC 8 H (0-5) /hpf Ur Squamous Epith Cells 11 H (0-4) /hpf Hyaline Casts 32 H (0-2) /lpf Urine Mucus Rare H (None) /hpf Urine Opiates Screen Not Detected (NotDetected) Ur Oxycodone Screen Not Detected (NotDetected) Urine Methadone Screen Not Detected (NotDetected) Ur Propoxyphene Screen Not Detected (NotDetected) Ur Barbiturates Screen Not Detected (NotDetected) U Tricyclic Antidepress Detected H (NotDetected) Ur Phencyclidine Scrn Not Detected (NotDetected) Ur Amphetamines Screen Not Detected (NotDetected) U Methamphetamines Scrn Not Detected (NotDetected) U Benzodiazepines Scrn Not Detected (NotDetected) Urine Cocaine Screen Not Detected (NotDetected) U Marijuana (THC) Screen Not Detected (NotDetected) Serum Alcohol mg/dL Coronavirus (PCR) Not Detected (Not Detectd) Disposition Clinical Impression: Hyponatremia, Weakness, Altered mental status, Vertigo Disposition: ADMITTED IP TO THIS HOSP Referrals: Andrzej Wheeler MD [Primary Care Provider] - 1-2 days Time of Disposition: 16:39
[2020-06-10 13:32] LABS: Basophils # (A) 0.1 k/uL (0-0.2); Basophils % (A) 1 %; Eosinophils # (A) 0.1 k/uL (0-0.7); Eosinophils % (A) 1 %; HCT 41.5 % (34.0-46.0); Lymphocytes # (A) 1.5 k/uL (1.0-4.8); Lymphocytes % (A) 14 %; MCH 31.3 pg (25.0-35.0); MCHC 33.8 g/dL (31.0-37.0); MCV 92.6 fL (80.0-100.0); Mean Platelet Volume 6.9; Monocytes # (A) 1.2 k/uL (0-1.0); Monocytes % (A) 11 %; Neutrophils # (A) 7.4 k/uL (1.3-7.7); Neutrophils % (A) 71 %; Platelet Count 255 k/uL (150-450); RBC 4.48 m/uL (3.80-5.40); RDW 13.1 % (11.5-15.5); WBC 10.4 k/uL (3.8-10.6)
[2020-06-10 13:47] LABS: ALT 9 U/L (4-34); AST 26 U/L (14-36); African American GFR (CKD) 68 (>60 ml/min/1.73 sqM); Albumin 3.8 g/dL (3.5-5.0); Alcohol <10 mg/dL; Alkaline Phosphatase 80 U/L (38-126); Anion Gap 5 mmol/L; Blood Urea Nitrogen 13 mg/dL (7-17); Calcium 9.1 mg/dL (8.4-10.2); Carbon Dioxide 37 mmol/L (22-30); Chloride 80 mmol/L (98-107); Glucose 93 mg/dL (74-99); Non-African American GFR(CKD) 59 (>60 ml/min/1.73 sqM); Potassium 3.8 mmol/L (3.5-5.1); Sodium 122 mmol/L (137-145); Total Bilirubin 0.5 mg/dL (0.2-1.3); Total Protein 6.3 g/dL (6.3-8.2)
[2020-06-10 13:54] LABS: INR 0.9 (<1.2); Partial Thromboplastin Time 27.8 sec (22.0-30.0); Prothrombin Time 9.8 sec (9.0-12.0)
[2020-06-10 14:15] LABS: D-Dimer 2.08 mg/L FEU (<0.60)
--- NOTE | 2020-06-10 14:15 | CT ---
EXAMINATION TYPE: CT brain wo con DATE OF EXAM: 06/10/2020 COMPARISON: 05/07/2018 HISTORY: 65-year-old female confusion, blurry vision TECHNIQUE: Examination was done in axial plane without intravenous contrast. Coronal and sagittal r econstructions performed. CT DLP: 1011.4 mGycm Automated exposure control for dose reduction was used. FINDINGS: There is no evidence of acute intracranial hemorrhage, acute ischemic changes, mass, mass-effect, or extra-axial fluid collection. There is no effacement of cerebral sulci or basal subarachnoid cister ns. There is no hydrocephalus. There is no midline shift. Saul-white matter distinction is preserv ed. Mild generalized supratentorial volume loss. Mild atherosclerotic calcifications in the carotid sipho ns. Paranasal sinuses and mastoid air cells well pneumatized. Orbits and globes are intact. IMPRESSION: Mild generalized atrophy. No acute intracranial abnormality seen.
--- NOTE | 2020-06-10 15:35 | CT ---
EXAMINATION TYPE: CT chest angio for PE DATE OF EXAM: 06/10/2020 COMPARISON: Chest radiograph 05/28/2020. CT 07/21/2019 HISTORY: 65-year-old female short of breath TECHNIQUE: Contiguous axial scanning of the chest performed with IV Contrast, patient injected with 1 00 mL of Isovue 300. Coronal/sagittal MIP reconstructions performed. CT DLP: 511.2 mGycm Automated exposure control for dose reduction was used. FINDINGS: Heart borderline to mildly enlarged without pericardial effusion. No flattening of the interventricul ar septum reflux of contrast into the hepatic veins. 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 Conventional arch vessel branching anatomy. Heterogeneously enhancing 2.3 cm nodule right lobe of the thyroid gland should be further assessed wi th thyroid ultrasound. There is some variable caliber narrowing of the trachea and mainstem bronchi. Right hilar lymph node measures 2.2 x 1.7 cm appears largely unchanged from 07/21/2019. Otherwise, no thoracic lymphadenopathy seen. While there is satisfactory opacification of the pulmonary arterial system, there is diffuse breathin g motion degrading assessment for pulmonary. No large central or definite lobar branch embolus. Many of the segmental and more distal arterial branches are nondiagnostic. Bibasilar volume loss with atelectasis. Mild diffuse bronchial wall thickening. Subtle mosaic attenua tion in the upper lungs. Focal patchy groundglass density, posterior right lower lung, axial image 86. Small focus of groundglass anterior right upper lung, axial image 32. An irregular 8 mm nodule lateral right apex, axial image 21. Mild biapical pleural-parenchymal scarri ng. There seems to be some circumferential wall thickening of the distal half of the esophagus. Tiny hiat al hernia. Postsurgical change along the proximal stomach. Cholecystectomy clips. Moderate stool lou en. Bones: Dextroconvex scoliosis. Moderate degenerative disc disease mid to lower thoracic spine. Normal variant sternal foramen. IMPRESSION: 1. BREATHING MOTION DEGRADES ASSESSMENT FOR PULMONARY EMBOLUS. NO LARGE CENTRAL OR LOBAR BRANCH EMBOL US. MANY OF THE SEGMENTAL AND MORE DISTAL ARTERIAL BRANCHES ARE NONDIAGNOSTIC AND EMBOLI IN THESE LOC ATIONS CANNOT BE ADEQUATELY EXCLUDED ON THE BASIS OF THIS EXAM. 2. MILD DIFFUSE BRONCHIAL WALL THICKENING AND SOME SUBTLE MOSAIC ATTENUATION IN THE UPPER LUNGS. RUFUS ELATE FOR BRONCHITIS OR ASTHMA. 3. PATCHY GROUNDGLASS POSTERIOR RIGHT BASE AND ANTERIOR RIGHT UPPER LUNG. A COUPLE NONSPECIFIC INFECT IOUS/INFLAMMATORY FOCI ARE SUGGESTED. FOLLOW UP IF CONCERN FOR EARLY ATYPICAL PNEUMONIA. 4. PROBABLY REACTIVE 1.7 CM RIGHT HILAR LYMPH NODE, UNCHANGED FOR 10 MONTHS. HOWEVER, AN IRREGULAR 8 MM RIGHT APICAL PULMONARY NODULE IS NEW. 2-3 MONTH FOLLOW-UP RECOMMENDED TO REASSESS AND DIFFERENTIAT E BETWEEN AN INFLAMMATORY FOCUS OR A TRUE PULMONARY NODULE. 5. MILD CIRCUMFERENTIAL WALL THICKENING DISTAL HALF OF THE ESOPHAGUS. FINDINGS CAN BE SEEN WITH ESOPH AGITIS. CLINICALLY CORRELATE. 6. A 2.3 CM RIGHT THYROID NODULE. DEDICATED THYROID ULTRASOUND CAN FURTHER EVALUATE. 7. BIBASILAR VOLUME LOSS AND ATELECTASIS.
[2020-06-10 15:51] LABS: Appearance,Urine Cloudy (Clear); Bilirubin,Urine Negative (Negative); Blood,Urine Negative (Negative); Color,Urine Yellow; Glucose,Urine (UA) Negative (Negative); Hyaline Casts,Urine 32 /lpf (0-2); Ketones,Urine Negative (Negative); Leukocyte Esterase,Urine Moderate (Negative); Mucus,Urine Rare /hpf; Nitrite,Urine Negative (Negative); Protein,Urine Negative (Negative); RBC,Urine 4 /hpf (0-5); Specific Gravity,Urine 1.015 (1.001-1.035); Squamous Epithelial Cell,Urine 11 /hpf (0-4); Urobilinogen,Urine <2.0 mg/dL (<2.0); WBC,Urine 8 /hpf (0-5)
[2020-06-10] MEDS ORDERED: MECLIZINE 25 MG TAB PO STA (15:56)
[2020-06-10] MEDS ORDERED: SODIUM CHLORIDE 0.9% 500 ML 500 ML IV ONE (15:56)
[2020-06-10 16:07] LABS: Amphetamine Screen,Urine Not Detected (NotDetected); Barbiturate Screen,Urine Not Detected (NotDetected); Benzodiazepines Screen,Urine Not Detected (NotDetected); Cocaine Screen,Urine Not Detected (NotDetected); Methadone Screen, Urine Not Detected (NotDetected); Opiate Screen,Urine Not Detected (NotDetected); Oxycodone Screen, Urine Not Detected (NotDetected); Phencyclidine Screen,Urine Not Detected (NotDetected); Tricyclic Antidepressant,Urine Detected (NotDetected); Urn Cannabinoid Scrn Not Detected (NotDetected)
[2020-06-10] MEDS ORDERED: SODIUM CHLORIDE 0.9% 1,000 ML IV ONE (16:39)
[2020-06-10] MEDS ORDERED: MECLIZINE 25 MG TAB PO PRN (16:41)
[2020-06-10] MEDS ORDERED: ALBUTEROL NEBULIZED 2.5 MG/3 ML INHALATION PRN (19:47)
[2020-06-10] MEDS: MONTELUKAST 10 MG TAB PO SCH (20:52)
[2020-06-10] MEDS: lamoTRIgine 100 MG TAB PO SCH (20:52)
[2020-06-10] MEDS: MUPIROCIN 2% OINT 22 GM TUBE TOPICAL SCH (20:53)
[2020-06-10] MEDS: busPIRone HCl 10 MG TAB PO SCH (20:53)
[2020-06-10] MEDS: DIVALPROEX ER 500 MG TAB.ER.24H PO SCH (20:54)
[2020-06-10] MEDS: NYSTATIN 100,000 UNIT/GM POWD 15 GM TOPICAL SCH (20:54)
[2020-06-10 22:37] LABS: Glucose,Whole Blood 100 mg/dL (75-99)
[2020-06-11 00:35] LABS: ALT 9 U/L (4-34); AST 26 U/L (14-36); African American GFR (CKD) 78 (>60 ml/min/1.73 sqM); Albumin 3.8 g/dL (3.5-5.0); Albumin/Globulin Ratio 1.5; Alkaline Phosphatase 87 U/L (38-126); Anion Gap 4 mmol/L; Blood Urea Nitrogen 11 mg/dL (7-17); Calcium 9.6 mg/dL (8.4-10.2); Carbon Dioxide 38 mmol/L (22-30); Chloride 81 mmol/L (98-107); Globulin 2.6 g/dL; Glucose 95 mg/dL (74-99); Non-African American GFR(CKD) 67 (>60 ml/min/1.73 sqM); Potassium 4.2 mmol/L (3.5-5.1); Sodium 123 mmol/L (137-145); Total Bilirubin 0.5 mg/dL (0.2-1.3); Total Protein 6.4 g/dL (6.3-8.2)
[2020-06-11 00:39] LABS: Valproic Acid (Depakene) 109.7 ug/mL
[2020-06-11 02:34] LABS: T4, Free (Free Thyroxine) 1.98 ng/dL (0.78-2.19)
[2020-06-11 06:57] LABS: Glucose,Whole Blood 81 mg/dL (75-99)
[2020-06-11] MEDS: lamoTRIgine 100 MG TAB PO SCH ×2 (08:19→20:38)
[2020-06-11] MEDS: busPIRone HCl 10 MG TAB PO SCH ×2 (08:25→20:37)
[2020-06-11] MEDS: MUPIROCIN 2% OINT 22 GM TUBE TOPICAL SCH ×2 (08:25→20:38)
[2020-06-11] MEDS: DIVALPROEX ER 500 MG TAB.ER.24H PO SCH (08:25)
[2020-06-11] MEDS: NYSTATIN 100,000 UNIT/GM POWD 15 GM TOPICAL SCH ×2 (08:26→20:38)
--- NOTE | 2020-06-11 09:21 | P.CNNES ---
History of Present Illness Consult date: 06/11/20 Requesting physician: Isrrael Jasso Reason for Consult: altered mental status and vertigo History of Present Illness: This is a 65-year-old woman with medical history of cellulitis of the lateral lower extremities, hypertension, diabetes mellitus, fibromyalgia, osteoarthritis, pulmonary embolism, cervical stenosis, scoliosis and bipolar presented emergency department on 06/10/2020 and dizzy and somewhat confused for the past one week. She describes her dizziness as if things are moving and mostly with position but somewhat alleviated with rest. She denies diplopia. She denies or ringing of ears or hearing loss. She denies any recent infection or fever recently. At the time of presentation she was accompanied by her and it was noted that the patient is alert oriented 3 but the the question has to be repeated 2-3 times until she answers. She does feel generalized weakness. The patient denies any focal weakness. She said she is on Depakote and Lamictal for her Bipolar. She is being managed by Dr. Donaldson. She denies history of seizure. Regarding neck pain, she said she had left neck pain but denied any radiation. She denies of urinary or bowel issues associated with this. She said she has been walking with a walker for >9 months. She said she seen Dr. Wesley in the past regarding her cervical stenosis and refuses surgery on her neck. Workup in the hospital consisted of: Initial vital signs: Blood pressure is 147/77, heart rate of 113, history of 18, temperature of 97.1 Fahrenheit oral and pulse ox of 99% room air. CT of the head is reported as mild generalized atrophy. No acute intracranial abnormality seen. EKG is reported as normal sinus rhythm. Left axis deviation. Ventricular rate is 65 the. Voltage criteria for left ventricle hypertrophy. Nonspecific ST abnormality. Abnormal EKG. Sodium is a 122 on presentation and repeated last one is 123 on 06/11/2020. Patient baseline sodium ranges from 127-134 predominantly. Urinalysis: Appears cloudy, leukocyte esterase was moderate, urine white blood cells 8, urine squamous epithelial cells 11. Urine drug screen is positive for tricyclic antidepressant. The valproic acid is 109.7 (is possible toxic level).. Serum alcohol was less than 10. Otherwise the basic urine drug changes nondetected. Patient had MRI of the brain on that 05/07/2018 and was reported as the patient was in too much pain to complete exam. I [place] years cannot be obtained. This limits assessment of the neuroforamen. Moderate to advanced disc/endplate degenerative changes progressed from 2011 with an accentuated upper cervical lordosis, multilevel disc osteophyte of flight complexes and the ligamentum of flavum thickening. In particular at C3 to C4, there is moderate to severe spinal canal stenosis with AP canal dye mention narrowed dad to 5.5 mm. There is abundant and flattening of both the dorsal and ventral cord. Additional variable mild to moderate spinal canal stenosis as outlined above. Extensive motion artifact. The signal change projection along the cord felt to be artifactual rather than representing edema. Orthopedic evaluate the patient on 05/08/2018 and it felt and no acute surgical intervention at that point and she is to follow up as an outpatient. And they stated that that she's a candidate for surgical intervention in the future if her symptoms recur or worsen. Review of Systems Review of system: The 12 point system was reviewed and apparent positive and negative per HPI. 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 History of Any Multi-Drug Resistant Organisms: None Reported Past Surgical History: Adenoidectomy, Section, Cholecystectomy, Hysterectomy, Tonsillectomy Additional Past Surgical History / Comment(s): EGD, colonoscopies, gastric bypass, surgery for deviated septum Past Anesthesia/Blood Transfusion Reactions: Previous Problems w/ Anesthesia Additional Past Anesthesia/Blood Transfusion Reaction / Comment(s): itching, some kind of problem after gastric bypass-not sure what happened Past Psychological History: Anxiety, Bipolar, Depression Additional Psychological History / Comment(s): Pt resides with her spouse. They have a cat. She states her depression is not an issue. She states her anxiety and panic attacks are severe. She wears a back brace when up. She drives. Smoking Status: Current every day smoker Past Alcohol Use History: None Reported Additional Past Alcohol Use History / Comment(s): started smoking in her 30s- smokes 1.5 packs per day. Past Drug Use History: None Reported - Past Family History Mother Family Medical History: Congestive Heart Failure (CHF), Hypertension Father Additional Family Medical History / Comment(s): Father at the age of 45 yrs d/t having had rheumatic fever as a child and heart valve disease. Medications and Allergies Home Medications Medication Instructions Recorded Confirmed Type Gabapentin [Neurontin] 800 mg PO TID 12/17/13 06/10/20 History Montelukast [Singulair] 10 mg PO HS 12/17/13 06/10/20 History busPIRone HCL [Buspar] 30 mg PO BID 12/17/13 06/10/20 History lamoTRIgine [LaMICtal] 100 mg PO BID 12/17/13 06/10/20 History lisinopriL [Zestril] 20 mg PO DAILY 12/17/13 06/10/20 History Albuterol Sulfate [Proair Hfa] 2 puff INHALATION RT-Q6H PRN 05/07/18 06/10/20 History Cyclobenzaprine [Flexeril] 10 mg PO BID 06/01/19 06/10/20 History Fluticasone Propion/Salmeterol 1 puff INHALATION RT-BID 06/01/19 06/10/20 History [Wixela 250-50 Inhub] PARoxetine [Paxil] 20 mg PO DAILY 06/01/19 06/10/20 History Levothyroxine Sodium [Synthroid] 150 mcg PO DAILY 03/29/20 06/10/20 History Mupirocin 2% Oint [Bactroban 2% 1 applic TOPICAL BID 03/29/20 06/10/20 History Oint] amLODIPine [Norvasc] 5 mg PO DAILY #30 tab 04/01/20 06/10/20 Rx SILVER sulfADIAZINE CREAM 1 applic TOPICAL BID 04/26/20 06/10/20 History [Silvadene Cream] Divalproex ER [Depakote ER] 500 mg PO TID 05/27/20 06/10/20 History Nystatin [Nystop] 1 applic TOPICAL BID 05/27/20 06/10/20 History Spironolactone-Hctz 25-25Mg 1 tab PO DAILY 06/10/20 06/10/20 History [Aldactazide 25-25 MG] Allergies Allergy/AdvReac Type Severity Reaction Status Date / Time codeine Allergy Unknown Verified 06/10/20 13:27 Childhood Penicillins Allergy Rash/Hives Verified 06/10/20 13:27 Sulfa (Sulfonamide Allergy Rash/Hives Verified 06/10/20 13:27 Antibiotics) Physical Examination - Vital Signs Vital Signs: Vital Signs Temp Pulse Pulse Resp BP BP Pulse Ox 06/11/20 07:00 97.8 F 72 18 121/51 86 L 06/10/20 23:00 98.3 F 99 16 136/69 95 06/10/20 17:38 97.8 F 70 20 145/78 92 L 06/10/20 17:00 98.0 F 92 18 138/84 98 06/10/20 15:00 97.7 F 94 18 134/72 97 06/10/20 12:18 97.1 F L 113 H 18 147/77 99 Intake and Output 06/10/20 06/11/20 06/11/20 22:59 06:59 14:59 Other: Voiding Method Bedside Commode # Voids 1 5 Weight 124.738 kg GENERAL: The patient is lying in bed and is not in acute distress. CHEST: The heart rate is regular rate rhythm. No murmurs to auscultation. No carotid bruit bilaterally. LUNG: Clear to auscultation bilaterally no wheezing noted throughout. Not labored breathing. ABDOMEN/GI: Bowel sounds present in all 4 quadrants. No tenderness to palpation throughout. NEUROLOGICAL: Higher mental function: The patient is awake, alert, oriented to self, place and time. Patient is following commands. No aphasia and no neglect. Cranial nerves: The pupils are round, equal and reactive to light and acc ommodation. Visual flores are full to confrontation throughout. Extraocular movement is intact no nystagmus is noted. Facial sensation is normal to touch throughout. The facial strength is normal throughout. Hearing is mildly decreased l bilaterally to hand rub. Tongue is midline and moved [id number] without any difficulty. No dysarthria is noted. Shoulder shrug is normal bilaterally. Motor: Gait is deferred because of pain. The strength is 5 over 5 throughout bilateral upper extremities while lower is limited because of patient pain and had gauze wrapped in lower extremities but was able to lift above gravity. Normal tone and bulk. Cerebellum: Normal finger to nose bilaterally but had essential tremor (left > right). Sensation: Sensation is normal to touch throughout. Reflexes (right/left): 3+ bilateral brachioradialis and biceps otherwise 2+ Plantars are downgoing bilaterally. Results Calcium is 9.6. Ammonia is less than 9. Vitamin B12 is pending TSH is 5.0 30 in the free T4 is 1.98. Coagulation study: PT is 9.8, INR is 0.9, PTT is 27.8. D-dimer is 2.08. [place] virus PCR is nondetected. - Laboratory Findings CBC and BMP: 06/10/20 13:22 06/11/20 00:01 Abnormal Lab Findings: Abnormal Labs 06/10/20 06/10/20 06/10/20 13:22 13:22 13:22 Monocytes # 1.2 H D-Dimer 2.08 H Sodium 122 L Chloride 80 L Carbon Dioxide 37 H POC Glucose (mg/dL) Osmolality TSH Urine Appearance Ur Leukocyte Esterase Urine WBC Ur Squamous Epith Cells Hyaline Casts Urine Mucus U Tricyclic Antidepress 06/10/20 06/10/20 06/10/20 15:34 15:34 22:35 Monocytes # D-Dimer Sodium Chloride Carbon Dioxide POC Glucose (mg/dL) 100 H Osmolality TSH Urine Appearance Cloudy H Ur Leukocyte Esterase Moderate H Urine WBC 8 H Ur Squamous Epith Cells 11 H Hyaline Casts 32 H Urine Mucus Rare H U Tricyclic Antidepress Detected H 06/11/20 00:01 Monocytes # D-Dimer Sodium 123 L Chloride 81 L Carbon Dioxide 38 H POC Glucose (mg/dL) Osmolality 265 L TSH 5.030 H Urine Appearance Ur Leukocyte Esterase Urine WBC Ur Squamous Epith Cells Hyaline Casts Urine Mucus U Tricyclic Antidepress Assessment and Plan Assessment: This is a 65-year-old woman with multiple medical history that presented to the emergency department on 06/10/2020 and dizzy and somewhat confused for the past one week. The dizziness is mostly positional but complete resolution with rest. Vetigo likely due to elevated Valproic acid Patient's altered mental status is likely toxic metabolic encephalopathy due to multifactorial elevated valproic acid, chronic hyponatremia, and urinary tract infection Elevated valproic acid (109.7--possible toxic level) Chronic hyponatremia Cervical Spondylosis (in particular C3-C4 C4-C5 and moderate C5-C6) Urinary tract infection History of Bipolar History of cellulitis of the lateral lower extremities diabetes mellitus hypertension History of fibromyalgia History of osteoarthritis, History of pulmonary embolism Plan: I ordered MRI of the brain to rule out any intracranial process. Ordered the orthostatic vitals. Pending a vitamin B12 and folate. PT and OT are consulted. Patient is on meclizine 25 mg by mouth 3 times a day when necessary for vertigo that was started by the ED. She is on Depakote 500 mg extended release 1 tablet 3 times a day and Lamictal 100 mg 100 mg 1 tablet twice a day for history of Bipolar. I recommend changing Depakote to 2 times a day but will defer it to Psychiatry. Psychiatry consult recommended. Regarding the patient cervical spondylosis especially cervical stenosis over the C3-C4, C4-C5 and moderate C5-C6. She refuses Orthopedic surgery and therefore consult. EEG is not warranted at this time. Recommend the slowly correcting the patient's hyponatremia. We'll defer the management to the primary team. Regarding the management of urinary tract infection will defer the management to the primary team as well. Regarding the rest of the patient medical management will defer to the primary team. Thank you for the consultation. Diana Boggs Neuro-hospitalist Time with Patient: Greater than 30
[2020-06-11 11:15] LABS: Glucose,Whole Blood 102 mg/dL (75-99)
[2020-06-11] MEDS: SODIUM CHLORIDE 0.9% 1,000 ML IV SCH (12:10)
--- NOTE | 2020-06-11 13:19 | P.HPIM ---
History of Present Illness Patient is a pleasant 65-year-old female came in because of her concerns of confusion although when I evaluated the patient patient is alert oriented 3. Patient is able to provide me the history of the main reason she came in is be cause of from what ago. And the patient denied any ringing in the ears or hearing loss. Patient denied any fever chills patient the urine is contaminated urine sample patient is on Depakote and Lamictal for her bipolar disorder had Depakote levels on the higher side because of which neurology believes Depakote is contributing to her symptoms. Patient denied dysuria patient doesn't have any fever chills. Patient does have bilateral pedal edema which appears to be chronic with chronic venous stasis and venous stasis dermatosis. Patient doesn't have any local is of temperature. Patient was treated recently with antibiotics for this considering this is cellulitis. Patient is also hyponatr emic with a serum sodium of 123. Patient is also on hydrochlorothiazide. Which is being held at this time. I do not have any urine osmolality available at this time which was ordered. Patient evidently had a fall as well because of which have physical therapy and occupational therapy were consulted patient felt unstable and had a fall Review of Systems REVIEW OF SYSTEMS: CONSTITUTIONAL: No fever, no malaise, no fatigue. HEENT: No recent visual problems or hearing problems. Denied any sore throat. CARDIOVASCULAR: No chest pain, orthopnea, PND, no palpitations, no syncope. PULMONARY: No shortness of breath, no cough, no hemoptysis. GASTROINTESTINAL: No diarrhea, no nausea, no vomiting, no abdominal pain. NEUROLOGICAL: No headaches, no weakness, no numbness. HEMATOLOGICAL: Denies any bleeding or petechiae. GENITOURINARY: Denies any burning micturition, frequency, or urgency. MUSCULOSKELETAL/RHEUMATOLOGICAL: Denies any joint pain, swelling, or any muscle pain. ENDOCRINE: Denies any polyuria or polydipsia. The rest of the 14-point review of systems is negative. 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 History of Any Multi-Drug Resistant Organisms: None Reported Past Surgical History: Adenoidectomy, Section, Cholecystectomy, Hysterectomy, Tonsillectomy Additional Past Surgical History / Comment(s): EGD, colonoscopies, gastric bypass, surgery for deviated septum Past Anesthesia/Blood Transfusion Reactions: Previous Problems w/ Anesthesia Additional Past Anesthesia/Blood Transfusion Reaction / Comment(s): itching, some kind of problem after gastric bypass-not sure what happened Past Psychological History: Anxiety, Bipolar, Depression Additional Psychological History / Comment(s): Pt resides with her spouse. They have a cat. She states her depression is not an issue. She states her anxiety and panic attacks are severe. She wears a back brace when up. She drives. Smoking Status: Current every day smoker Past Alcohol Use History: None Reported Additional Past Alcohol Use History / Comment(s): started smoking in her 30s- smokes 1.5 packs per day. Past Drug Use History: None Reported - Past Family History Mother Family Medical History: Congestive Heart Failure (CHF), Hypertension Father Additional Family Medical History / Comment(s): Father at the age of 45 yrs d/t having had rheumatic fever as a child and heart valve disease. Medications and Allergies Home Medications Medication Instructions Recorded Confirmed Type Gabapentin [Neurontin] 800 mg PO TID 12/17/13 06/10/20 History Montelukast [Singulair] 10 mg PO HS 12/17/13 06/10/20 History busPIRone HCL [Buspar] 30 mg PO BID 12/17/13 06/10/20 History lamoTRIgine [LaMICtal] 100 mg PO BID 12/17/13 06/10/20 History lisinopriL [Zestril] 20 mg PO DAILY 12/17/13 06/10/20 History Albuterol Sulfate [Proair Hfa] 2 puff INHALATION RT-Q6H PRN 05/07/18 06/10/20 History Cyclobenzaprine [Flexeril] 10 mg PO BID 06/01/19 06/10/20 History Fluticasone Propion/Salmeterol 1 puff INHALATION RT-BID 06/01/19 06/10/20 History [Wixela 250-50 Inhub] PARoxetine [Paxil] 20 mg PO DAILY 06/01/19 06/10/20 History Levothyroxine Sodium [Synthroid] 150 mcg PO DAILY 03/29/20 06/10/20 History Mupirocin 2% Oint [Bactroban 2% 1 applic TOPICAL BID 03/29/20 06/10/20 History Oint] amLODIPine [Norvasc] 5 mg PO DAILY #30 tab 04/01/20 06/10/20 Rx SILVER sulfADIAZINE CREAM 1 applic TOPICAL BID 04/26/20 06/10/20 History [Silvadene Cream] Divalproex ER [Depakote ER] 500 mg PO TID 05/27/20 06/10/20 History Nystatin [Nystop] 1 applic TOPICAL BID 05/27/20 06/10/20 History Spironolactone-Hctz 25-25Mg 1 tab PO DAILY 06/10/20 06/10/20 History [Aldactazide 25-25 MG] Allergies Allergy/AdvReac Type Severity Reaction Status Date / Time codeine Allergy Unknown Verified 06/10/20 13:27 Childhood Penicillins Allergy Rash/Hives Verified 06/10/20 13:27 Sulfa (Sulfonamide Allergy Rash/Hives Verified 06/10/20 13:27 Antibiotics) Physical Exam Vitals: Vital Signs Temp Pulse Pulse Resp BP BP BP 06/11/20 12:02 97.8 F 74 18 140/78 135/64 06/11/20 07:00 97.8 F 72 18 121/51 06/10/20 23:00 98.3 F 99 16 136/69 06/10/20 17:38 97.8 F 70 20 145/78 06/10/20 17:00 98.0 F 92 18 138/84 06/10/20 15:00 97.7 F 94 18 134/72 BP BP Pulse Ox 06/11/20 12:02 121/65 140/78 95 06/11/20 07:00 86 L 06/10/20 23:00 95 06/10/20 17:38 92 L 06/10/20 17:00 98 06/10/20 15:00 97 Intake and Output 06/10/20 06/11/20 06/11/20 22:59 06:59 14:59 Other: Voiding Method Bedside Commode # Voids 1 5 Weight 124.738 kg PHYSICAL EXAMINATION: GENERAL: The patient is alert and oriented x3, not in any acute distress. Well developed, well nourished. HEENT: Pupils are round and equally reacting to light. EOMI. No scleral icterus. No conjunctival pallor. Normocephalic, atraumatic. No pharyngeal erythema. No thyromegaly. CARDIOVASCULAR: S1 and S2 present. No murmurs, rubs, or gallops. PULMONARY: Chest is clear to auscultation, no wheezing or crackles. ABDOMEN: Soft, nontender, nondistended, normoactive bowel sounds. No palpable or ganomegaly. MUSCULOSKELETAL: No joint swelling or deformity. EXTREMITIES: No cyanosis, clubbing, has extensive bilateral lower pedal edema with chronic venous stasis dermatosis. Patient pedal edema is nonpitting. NEUROLOGICAL: Gross neurological examination did not reveal any focal deficits. SKIN: No rashes. Results CBC & Chem 7: 06/10/20 13:22 06/11/20 00:01 Labs: Abnormal Lab Results - Last 24 Hours (Table) 06/10/20 06/10/20 06/10/20 Range/Units 13:22 13:22 13:22 Monocytes # 1.2 H (0-1.0) k/uL D-Dimer 2.08 H (<0.60) mg/L FEU Sodium 122 L (137-145) mmol/L Chloride 80 L (98-107) mmol/L Carbon Dioxide 37 H (22-30) mmol/L POC Glucose (mg/dL) (75-99) mg/dL Osmolality (280-301) mosm/kg TSH (0.465-4.680) mIU/L Urine Appearance (Clear) Ur Leukocyte Esterase (Negative) Urine WBC (0-5) /hpf Ur Squamous Epith Cells (0-4) /hpf Hyaline Casts (0-2) /lpf Urine Mucus (None) /hpf U Tricyclic Antidepress (NotDetected) 06/10/20 06/10/20 06/10/20 Range/Units 15:34 15:34 22:35 Monocytes # (0-1.0) k/uL D-Dimer (<0.60) mg/L FEU Sodium (137-145) mmol/L Chloride (98-107) mmol/L Carbon Dioxide (22-30) mmol/L POC Glucose (mg/dL) 100 H (75-99) mg/dL Osmolality (280-301) mosm/kg TSH (0.465-4.680) mIU/L Urine Appearance Cloudy H (Clear) Ur Leukocyte Esterase Moderate H (Negative) Urine WBC 8 H (0-5) /hpf Ur Squamous Epith Cells 11 H (0-4) /hpf Hyaline Casts 32 H (0-2) /lpf Urine Mucus Rare H (None) /hpf U Tricyclic Antidepress Detected H (NotDetected) 06/11/20 06/11/20 Range/Units 00:01 11:14 Monocytes # (0-1.0) k/uL D-Dimer (<0.60) mg/L FEU Sodium 123 L (137-145) mmol/L Chloride 81 L (98-107) mmol/L Carbon Dioxide 38 H (22-30) mmol/L POC Glucose (mg/dL) 102 H (75-99) mg/dL Osmolality 265 L (280-301) mosm/kg TSH 5.030 H (0.465-4.680) mIU/L Urine Appearance (Clear) Ur Leukocyte Esterase (Negative) Urine WBC (0-5) /hpf Ur Squamous Epith Cells (0-4) /hpf Hyaline Casts (0-2) /lpf Urine Mucus (None) /hpf U Tricyclic Antidepress (NotDetected) Thrombosis Risk Factor Assmnt - Choose All That Apply Each Factor Represents 1 point: Obesity (BMI >25) Each Risk Factor Represents 2 Points: Age 61-74 years Thrombosis Risk Factor Assessment Total Risk Factor Score: 3 Thrombosis Risk Factor Assessment Level: Moderate Risk Assessment and Plan Plan: -Vertigo: Which is improving can be related to Depakote which is being held. Neurology evaluated the patient and the neurology consulted psychiatry to titrate her bipolar medications. -Hyponatremia mostly secondary to hydrochlorothiazide patient was started on IV fluids. TSH within normal limits rest of the labs for hyponatremia still pending. -Bilateral lower limb venous stasis dermatosis without any evidence of cellulitis patient will not be started on any antibiotics -Asymptomatic bacteriuria will not require any antibiotics at this time -COPD without any acute exacerbation -Fibromyalgia -Type 2 diabetes mellitus -History of PE in the past [place]-hypothyroidism TSH within normal limits now -Chronic back pain -Generalized weakness PT and OT will be consulted -Bipolar disorder [place]-continued nicotine use: Counseling was provided -DVT prophylaxis with Lovenox -
--- NOTE | 2020-06-11 14:22 | P.CN ---
Psychiatric Consult - . Consult date: 06/11/20 Consult:: 06/11/20 14:04 IDENTIFYING DATA: This patient is a 65-year-old female currently lives with her house is 1 daughter and is currently unemployed. REASON FOR REFERRAL: Psychiatry was consulted for elevated valproic acid level HISTORY OF PRESENT ILLNESS: The patient presented to the hospital and was complaining of weakness, confusion and dizziness and vertigo. ER report also claimed that patient was coughing and shortness of breath and apparently was "dozing off" and was having difficulty answering questions. Patient had a computed tomography scan of her head which showed no acute changes, sodium level was 122, troponins were negative. Patient was found to have a positive UA. UDS is positive for TCAs. Patient's valproic acid level was 109.7. Patient was seen at the bedside and appeared to be tending to cooperate with flex o writer operator. Patient expressed her anger towards the [facility] and spoke about her daughter and her traumatic brain injury which she sustained several years ago. Patient was slow to respond at times however was for the most part directable. She was appearing to be tearful when talking about her daughter. She was preoccupied with her not getting enough help in treatment in [place] and that she turned out to be blind afterwards. She states that she has been "harboring a lot of resentment". She also states that the pandemic has been very stressful for her and she does not like seeing other people with so many masks on. She states that her mood has been "not the best". She did admit to some ongoing depression. She claims that her sleep has been fragmented thr oughout the days and mainly takes naps during the day. She claims that she is also been having trouble with her memory for the past few days and also word finding problems. At this time patient denies any suicidal or homical ideations, intent or plan. Patient denies any auditory hallucinations and denies any paranoia or delusions. She did state that sometimes she does feel that her cat is in the room with her however does not admit to actual visual hallucinations. Patients admits to using cigarettes daily and denies any other recreational drug use or alcohol. Patient was fairly attention seeking and needy at times during the interview. PAST PSYCHIATRIC HISTORY: Patient has a a history of bipolar disorder. Patient was previously on Paxil, Depakote, Lamictal and BuSpar. Patient states that she was psychiatrically hospitalized several years ago and cannot remember when or where. Patient states that she follows up with Dr. Donaldson as her psychiatrist. Patient denies any history of suicide attempts in the past. PAST MEDICAL HISTORY: Cellulitis of both legs, hypertension, asthma, diabetes mellitus, fibromyalgia, Zachary arthritis, PE, thyroid disorder. ALLERGIES: as per EMR. CHEMICAL DEPENDENCY HISTORY: as per HPI. FAMILY PSYCHIATRIC/SUBSTANCE USE HISTORY: States that her mother had bipolar SOCIAL HISTORY: Patient was born and raised in [facility]. She states that she completed high school. 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 She currently lives with her and house has 1 daughter who lives in [place]. She denies any legal history in the past. MENTAL STATUS EXAM: General Appearance: Patient appears to be older than stated age is, obese, alert, difficult to redirect at times, attempts to cooperate. Patient appears to have fair hygiene and grooming wearing hospital gown with fair eye contact. Behavior: Patient is calmly lying in bed without any agitated behavior. Attention seeking at times and needy. Speech: Patient's speech is fluent and nonpressured. Mood/Affect: Patient reports their mood is "depressed", affect is congruent Suicidality/Homicidality: Patient denies having any suicidal or homicidal ideation intent or plan. Perceptions: Patient denies any visual hallucinations and denies any auditory hallucinations Though content/process: Rambles at times, tangential/circumstantial. Needy. Memory and concentration: AOX3, limited attention span. knows who the current president is, recalled 2 out of 3 words after 5 minutes. Can identify objects in the room. Can spell "WORLD" backwards Judgment and insight: fair IMPRESSIONS: Bipolar disorder unspecified r/o cluster B personality disorder nicotine dependence PLAN: -At this time patient DOES NOT meet criteria for inpatient psychiatric admission. Patients symptoms may have been related to adverse effects of her medications specifically depakote and/or paxil. -Delirium precautions recommended with patient including - avoiding use of narcotics and STAMPING DIE MAKER BENCH sedatives, limit anticholinergic medications when possible, frequent re-orientation, minimize use of restraints, open window shades during the day and close them at night -Would recommend the following medication changes/additions: Can continue with BuSpar 30 mg twice a day for anxiety, Depakote was decreased and switched to 1000 mg daily at bedtime +250 mg daily for mood stabilization. Lamictal can be continued at 100 mg twice a day for mood stabilization. Will attempt to titrate off Paxil as this has significant anticholinergic effects and replace with Zoloft which is more tolerable starting tomorrow. -Appreciate neurology following a long and will await results of MRI. -Will continue to follow along -Please contact with any questions.
--- NOTE | 2020-06-11 15:03 | MR ---
EXAMINATION TYPE: MR brain wo con DATE OF EXAM: 06/11/2020 2:46 PM COMPARISON: NONE HISTORY: Stroke: peripheral circulation FINDINGS: The ventricles, basal cisterns and sulci overlying the cerebral convexities are moderately enlarged. There is evidence of moderate periventricular white matter ischemic demyelination. Remote deep white matter insults are also noted. No acute edema is seen on diffusion weighted imaging. There is no evidence for midline shift or mass effect. Acute intracranial hemorrhage or extra-axial collection is not evident. The paranasal sinuses and mastoid air cells are well-aerated. IMPRESSION: Age-related atrophic and chronic small vessel ischemic change. No acute intracranial process at this time.
[2020-06-11 17:01] LABS: Glucose,Whole Blood 61 mg/dL (75-99)
[2020-06-11 17:22] LABS: Glucose,Whole Blood 85 mg/dL (75-99)
[2020-06-11] MEDS: MONTELUKAST 10 MG TAB PO SCH (20:38)
[2020-06-11 20:59] LABS: Glucose,Whole Blood 82 mg/dL (75-99)
[2020-06-11] MEDS ORDERED: DIVALPROEX ER 500 MG TAB.ER.24H PO SCH (21:00)
[2020-06-11 21:16] LABS: Creatinine,Urine Random 54.5 mg/dL
[2020-06-11] MEDS: SYMBICORT 80-4.5 MCG INHALER INHALATION SCH (21:39)
--- NOTE | 2020-06-12 05:08 | CONS ---
CONSULTATION DATE OF SERVICE: 06/11/2020. REASON FOR CONSULTATION: Lower extremity cellulitis. HISTORY OF PRESENT ILLNESS: The patient is a 65-year-old female with a past medical history significant for recurrent cellulitis of lower extremities, hypertension. The patient has been brought in to the ER at [facility] for evaluation of feeling weak, confused, and dizzy. The patient also complaining of some shortness of breath, but no cough or sputum production. Patient has been complaining of more swelling to lower extremities and some redness to the left leg. The patient did have mild dull aching pain to the left leg, more of a 3 to 4 out of 10, no radiation. With these symptoms, the patient was evaluated by the physician. On arrival to the ER, the patient was afebrile. No tachycardia or hypoxemia was noticed. The patient did have a normal white count with no lymphopenia. D-dimer was 2.08, creatinine 0.91. Electrolytes were normal. Liver enzymes were normal. Urine is negative. Urine drug tricyclic. Morton PCR was negative. The patient did have a CT of the brain that was negative for any bleed. She also had a CT angiogram of the chest with worsening patchy ground- glass density. The patient has been admitted to hospital, concern for lower extremity cellulitis. Infectious Disease was consulted for further management of antibiotic therapy. REVIEW OF SYSTEMS: Positive points have been mentioned in HPI. Rest of systems negative. PAST MEDICAL HISTORY: Asthma, COPD, diabetes mellitus, fibromyalgia, gastroesophageal reflux disease, hypertension, osteoarthritis, hypothyroidism, and lower extremity cellulitis. PAST SURGICAL HISTORY: Adenoidectomy, , cholecystectomy, hysterectomy, tonsillectomy. SOCIAL HISTORY: Current every day smoker. No drinking or drug use. FAMILY HISTORY: Mother history of congestive heart failure, hypertension. Father history of rheumatic fever. ALLERGIES: Allergies to PENICILLIN, SULFA and CODEINE. MEDICATIONS: Medications include the patient is currently on Ventolin, Norvasc, Symbicort, BuSpar, Depakote, Lovenox, Lamictal, Synthroid, Antivert, Singulair, Mycostatin powder, Paxil and Zoloft. PHYSICAL EXAMINATION: Blood pressure 152/79 with a pulse of 69, temperature 97.9. She is 97% on room air. General description is a middle-aged female up in the chair in no distress. No tachypnea or accessory muscle of respiration use. HEENT: Examination shows no pallor or scleral icterus. Oral mucous membrane is dry. No pharyngeal erythema or thrush. NECK: Trachea central, no thyromegaly. LUNGS: Unlabored breathing, decreased breath sounds in the bases. No wheeze or crackles. HEART: S1, S2. Regular rate and rhythm. ABDOMEN: Soft, no tenderness. Lower extremities: This patient's left leg did have more swelling and redness, slightly warm to touch. No skin breakdown. No drainage. NEUROLOGICAL: The patient is awake, alert, oriented x3. Mood and affect normal. LABS: Hemoglobin 14, white count 10.4, BUN of 11, creatinine 0.91. Electrolytes have been normal. Liver enzymes are normal. Urine is negative. DIAGNOSTIC IMPRESSION: 1. Patient with acute lower extremity cellulitis, left greater than right, in this patient who did have diffuse swelling and redness, likely streptococcal disease, clinically doubt MRSA gram-negative infection. 2. Patient with multiple antibiotic allergies that will limit the number of antibiotics safe to use. PLAN: 1. We will start the patient on cefazolin 2 grams q.8 hours. 2. Gen wrap to the left lower extremity just above the toe to below the knee. 3. We will follow on clinical condition and culture to further adjust medication if needed. Thank you for this consultation. Will follow this patient along with you. MMODL / IJN: [id number] /
[2020-06-12] MEDS: SODIUM CHLORIDE 0.9% 1,000 ML IV SCH (05:31)
[2020-06-12] MEDS ORDERED: LEVOTHYROXINE 75 MCG TAB PO SCH (06:30)
[2020-06-12 07:13] LABS: HCT 39.9 % (34.0-46.0); HGB 13.1 gm/dL (11.4-16.0); MCH 30.8 pg (25.0-35.0); MCHC 32.9 g/dL (31.0-37.0); MCV 93.8 fL (80.0-100.0); Mean Platelet Volume 7.3; Platelet Count 251 k/uL (150-450); RBC 4.25 m/uL (3.80-5.40); RDW 13.2 % (11.5-15.5); WBC 12.3 k/uL (3.8-10.6)
[2020-06-12] MEDS: lamoTRIgine 100 MG TAB PO SCH (07:45)
[2020-06-12] MEDS: busPIRone HCl 10 MG TAB PO SCH (07:45)
[2020-06-12] MEDS: MUPIROCIN 2% OINT 22 GM TUBE TOPICAL SCH (07:46)
[2020-06-12] MEDS: NYSTATIN 100,000 UNIT/GM POWD 15 GM TOPICAL SCH (07:46)
[2020-06-12] MEDS: SERTRALINE 25 MG TAB PO SCH ×2 (07:48→14:03)
[2020-06-12] MEDS ORDERED: amLODIPine 5 MG TAB PO SCH (09:00)
[2020-06-12] MEDS ORDERED: DIVALPROEX ER 250 MG TAB.ER.24H PO SCH (09:00)
[2020-06-12] MEDS ORDERED: PARoxetine 10 MG TAB PO SCH (09:00)
[2020-06-12] MEDS ORDERED: PARoxetine 20 MG TAB PO SCH (09:00)
[2020-06-12] MEDS ORDERED: ENOXAPARIN 40 MG/0.4 ML SYRINGE SQ SCH (09:00)
[2020-06-12] MEDS: SYMBICORT 80-4.5 MCG INHALER INHALATION SCH (09:52)
[2020-06-12 11:33] LABS: African American GFR (CKD) 112.4 (60.0-200.0); Anion Gap 8.2 mmol/L (4.00-12.00); BUN/Creat Ratio 16.67 Ratio (12.00-20.00); Calcium 9.6 mg/dL (8.7-10.3); Carbon Dioxide 35.8 mmol/L (21.6-31.8); Potassium 3.8 mmol/L (3.5-5.5)
--- NOTE | 2020-06-12 13:26 | P.PN ---
Progress Note - Text Progress Note Date: 06/12/20 Interval History: Patient was seen today for psychiatric follow-up regarding her bipolar disorder. Patient was noted to have refused her Zoloft this morning and took all her other medications. She states that she feels "a bit better" this morning and appeared to be less labile and was not tearful today. She claims that she thought that she took all of her medications. She continues to state that at times that she feels confused however has been feeling better overall. She was more directable today and denied any depression. She denies any anxiety today. She states that she would like to be discharged soon. She had more questions about her medications and process description writer explained the plan of cross titration of her Zoloft with Paxil. Patient claims that she would be agreeable to take the Zoloft now. At this time patient denies any suicidal or homical ideations, intent or plan. Patient denies any auditory, visual hallucinations and denies any paranoia or delusions. Patient denies any side effects from the medications and has been compliant with meds. Mental Status Exam: General Appearance: Patient appears to be older than stated age is, obese, alert, more directable today, attempts to cooperate. Patient appears to have fair hygiene and grooming wearing hospital gown with fair eye contact. Behavior: Patient is calmly lying in bed without any agitated behavior. Speech: Patient's speech is fluent and nonpressured. Mood/Affect: Patient reports their mood is "better", affect is congruent and less labile today. Suicidality/Homicidality: Patient denies having any suicidal or homicidal ideation intent or plan. Perceptions: Patient denies any visual hallucinations and denies any auditory hallucinations Though content/process: Rambles at times, tangential/circumstantial. Needy. Memory and concentration: AOX3, mildly improving attention span. Judgment and insight: fair, improving mildly Assessment Bipolar disorder unspecified r/o cluster B personality disorder nicotine dependence Plan: -At this time patient DOES NOT meet criteria for inpatient psychiatric admi ssion. Patients symptoms may have been related to adverse effects of her medications specifically depakote and/or paxil. -Delirium precautions recommended with patient including - avoiding use of narc otics and FAST FOOD SHIFT LEAD sedatives, limit anticholinergic medications when possible, frequent re-orientation, minimize use of restraints, open window shades during the day and close them at night -Would recommend the following medication changes/additions: Can continue with BuSpar 30 mg twice a day for anxiety, continue with Depakote 1000 mg daily at bedtime +250 mg daily for mood stabilization. Lamictal can be continued at 100 mg twice a day for mood stabilization. Will attempt to titrate off Paxil, to be discontinued tomorrow due to its significant anticholinergic effects. Patient is agreeable to start Zoloft today 25 mg dose. -Appreciate neurology following a long -Patient had completed a brain MRI, report reviewed. -Will continue to follow along and will likely sign off on patient's care [place] [facility]. -Please contact with any questions.
--- NOTE | 2020-06-12 14:00 | PN ---
PROGRESS NOTE DATE OF SERVICE: 06/12/2020 REASON FOR FOLLOWUP: Bilateral lower extremity cellulitis. INTERVAL HISTORY: The patient is currently afebrile. Patient is breathing comfortably. Patient denies having any chest pain or cough. No abdominal pain. Overall swelling in the leg has decreased. PHYSICAL EXAMINATION: Blood pressure 157/60 with a pulse of 80, temperature 98.5, she is 97% on room air. General description is a middle-aged female, up in the chair in no distress. RESPIRATORY SYSTEM: Unlabored breathing, clear to auscultation anteriorly. HEART: S1, S2. Regular rate and rhythm. ABDOMEN: Soft, no tenderness. Left leg swelling and redness has decreased. No open wound or any drainage. LABS: Hemoglobin is 13.8, white count 10.3, BUN of 10, creatinine 0.3. IMPRESSION/PLAN: 1. Patient with bilateral lower extremity cellulitis. 2. Right clinically responding to cefazolin. Finish therapy with oral Keflex 500 mg for 1 week. Gen wrap of the legs to continue. MMODL / IJN: [id number] /
[2020-06-12 15:26] VITALS: BP 131/59; PULSE 113; RESP 20; TEMP 98
--- NOTE | 2020-06-14 09:00 | P.DS ---
Providers Date of admission: 06/10/20 16:40 Expected date of discharge: 06/12/20 Attending physician: Saeed Lai MD Consults: 06/10/20 16:39 Consult Physician Urgent Consulting Provider: Ambrose Brannon Consult Reason/Comments: Altered mental status, vertigo Do you want consulting provider notified?: Yes 06/11/20 09:30 Consult Physician Routine Consulting Provider: Arnel Hernandez Consult Reason/Comments: elevated Valproic level, Do you want consulting provider notified?: Yes 06/11/20 11:05 Consult Physician Routine Consulting Provider: Briseida Mcdonald Consult Reason/Comments: bilateral leg cellulitis Do you want consulting provider notified?: Yes Primary care physician: Andrzej Wheeler Hospital Course: Final Diagnosis -Vertigo -Hyponatremia mostly secondary to hydrochlorothiazide -Bilateral lower limb venous stasis dermatosis without any evidence of cellulitis -Asymptomatic bacteriuria -COPD without any acute exacerbation -Fibromyalgia -Type 2 diabetes mellitus -History of PE in the past -hypothyroidism -Chronic back pain -Generalized weakness -Bipolar disorder -continued nicotine use: Counseling was provided -DVT prophylaxis -Gait dysfunction Discharge disposition Patient is being discharged in a stable condition with guarded prognosis to home. She will continue with home care in the outpatient setting. Patient will follow-up with Dr. Wheeler in the outpatient setting upon discharge. Patient is to continue with Keflex 500 mg 3 times daily for the next 1 week to complete the course. Patient also instructed to follow-up with her psychiatrist in the outpatient setting. Total time taken is greater than 35 minutes. History of present illness This is a 65-year-old female who was recently admitted with brief periods and episodes of confusion with some bilateral pedal edema and chronic venous stasis dermatosis with the possibility of cellulitis and was being closely monitored. She was seen and evaluated by infectious disease and started on cefazolin and will continue on Keflex in the outpatient setting for 1 week to complete the course. Bilateral lower extremities do not appear to be cellulitic although there is some flaking and redness noted. Swelling also noted and patient instructed to use Gen wraps to bilateral lower extremities from the toes up to the knees and elevate the lower extremities while at rest. Patient was also e valuated by psychiatry recommend changes in antidepressant and patient will be started on Zoloft. Patient will follow-up with her psychiatrist in the outpatient setting. She was also evaluated by PT/OT recommending subacute rehab as patient continues to be weak and would benefit from physical therapy and social work was following. Patient was accepted at [facility] awaiting authorization and patient changed her mind and would like to go home. Patient was back and forth with going to ECF or home although would likely benefit from ECF for continued PT/OT therapy. Patient became adamant about going home. She will continue with home care in the outpatient setting. Patient's diuretic will be held with the possibility of may be initiating some Lasix further down the road. This is to be discussed with primary care provider and this was discussed with patient at the bedside. Sodium improved and is 131. Currently no reports of chest pain, shortness of breath, or palpitations. Patient is afebrile. No reports of nausea or vomiting and patient is tolerating diet. Patient will be going home today. On exam vital signs are stable. Temp is 98.5F, pulse is 80, respirations are 18, blood pressure is 157/68, oxygen saturation is 97% on room air. Cardio S1, S2 are muffled. Respiratory system shows diminished breath sounds at the bases with no wheezing or rhonchi noted. Abdomen is soft and obese, and nontender. Nervous system shows diffuse weakness. Please refer to medication reconciliation sheet for a list of medications. Patient Condition at Discharge: Stable Plan - Discharge Summary Discharge Rx Participant: No New Discharge Prescriptions: New Divalproex ER [Depakote ER] 250 mg PO DAILY 30 Days #30 tab.er.24h Divalproex ER [Depakote ER] 1,000 mg PO HS 30 Days #30 tab.er.24h Cephalexin [Keflex] 500 mg PO Q8HR 7 Days #21 cap Sertraline [Zoloft] 25 mg PO DAILY 30 Days #30 tab Continue lamoTRIgine [LaMICtal] 100 mg PO BID busPIRone HCL [Buspar] 30 mg PO BID Montelukast [Singulair] 10 mg PO HS Gabapentin [Neurontin] 800 mg PO TID Albuterol Sulfate [Proair Hfa] 2 puff INHALATION RT-Q6H PRN PRN Reason: Shortness Of Breath Cyclobenzaprine [Flexeril] 10 mg PO BID Fluticasone Propion/Salmeterol [Wixela 250-50 Inhub] 1 puff INHALATION RT-BID Levothyroxine Sodium [Synthroid] 150 mcg PO DAILY Mupirocin 2% Oint [Bactroban 2% Oint] 1 applic TOPICAL BID amLODIPine [Norvasc] 5 mg PO DAILY #30 tab SILVER sulfADIAZINE CREAM [Silvadene Cream] 1 applic TOPICAL BID Nystatin [Nystop] 1 applic TOPICAL BID Discontinued lisinopriL [Zestril] 20 mg PO DAILY PARoxetine [Paxil] 20 mg PO DAILY Divalproex ER [Depakote ER] 500 mg PO TID Spironolactone-Hctz 25-25Mg [Aldactazide 25-25 MG] 1 tab PO DAILY Discharge Medication List Gabapentin [Neurontin] 800 mg PO TID 12/17/13 [History] Montelukast [Singulair] 10 mg PO HS 12/17/13 [History] busPIRone HCL [Buspar] 30 mg PO BID 12/17/13 [History] lamoTRIgine [LaMICtal] 100 mg PO BID 12/17/13 [History] Albuterol Sulfate [Proair Hfa] 2 puff INHALATION RT-Q6H PRN 05/07/18 [History] Cyclobenzaprine [Flexeril] 10 mg PO BID 06/01/19 [History] Fluticasone Propion/Salmeterol [Wixela 250-50 Inhub] 1 puff INHALATION RT-BID 06/01/19 [History] Levothyroxine Sodium [Synthroid] 150 mcg PO DAILY 03/29/20 [History] Mupirocin 2% Oint [Bactroban 2% Oint] 1 applic TOPICAL BID 03/29/20 [History] amLODIPine [Norvasc] 5 mg PO DAILY #30 tab 04/01/20 [Rx] SILVER sulfADIAZINE CREAM [Silvadene Cream] 1 applic TOPICAL BID 04/26/20 [History] Nystatin [Nystop] 1 applic TOPICAL BID 05/27/20 [History] Cephalexin [Keflex] 500 mg PO Q8HR 7 Days #21 cap 06/12/20 [Rx] Divalproex ER [Depakote ER] 1,000 mg PO HS 30 Days #30 tab.er.24h 06/12/20 [Rx] Divalproex ER [Depakote ER] 250 mg PO DAILY 30 Days #30 tab.er.24h 06/12/20 [Rx] Sertraline [Zoloft] 25 mg PO DAILY 30 Days #30 tab 06/12/20 [Rx] Follow up Appointment(s)/Referral(s): Andrzej Wheeler MD [Primary Care Provider] - 1-2 days [facility], [NON-STAFF] - 1-2 Days Patient Instructions/Handouts: Hyponatremia (DC), Altered Mental Status (GEN) Activity/Diet/Wound Care/Special Instructions: Activity Limited until follow-up Follow Up with primary care provider upon discharge Follow-up with psychiatrist in the outpatient setting upon discharge Continue antibiotics for 1 week until finished continue current diet Discharge Disposition: HOME WITH HOME HEALTH SERVICES
== END 2020-06-12 16:00 | disposition home health service (06) | DRG 640 ==
LOC: EC 12:14 → 5NMEDONC 16:40
PROVIDERS: ADMIT Internal Medicine; ATTEND Internal Medicine
DX: E87.1 Hypo-osmolality and hyponatremia (principal); G92 Toxic encephalopathy; Z68.43 Body mass index [BMI] 50.0-59.9, adult; T50.2X5A Adverse effect of carbonic-anhydrase inhibitors, benzothiadiazides and other diuretics, initial encounter; E03.9 Hypothyroidism, unspecified; E11.9 Type 2 diabetes mellitus without complications; E66.9 Obesity, unspecified; Z71.6 Tobacco abuse counseling; F17.210 Nicotine dependence, cigarettes, uncomplicated; F31.9 Bipolar disorder, unspecified; Z20.828 Contact with and (suspected) exposure to other viral communicable diseases; F41.0 Panic disorder [episodic paroxysmal anxiety]; G89.29 Other chronic pain; I11.9 Hypertensive heart disease without heart failure; I87.8 Other specified disorders of veins; J44.9 Chronic obstructive pulmonary disease, unspecified; M25.78 Osteophyte, vertebrae; M41.9 Scoliosis, unspecified; M47.812 Spondylosis without myelopathy or radiculopathy, cervical region; M48.02 Spinal stenosis, cervical region; M79.7 Fibromyalgia; Z91.81 History of falling; Z79.890 Hormone replacement therapy; Z79.899 Other long term (current) drug therapy; Z82.49 Family history of ischemic heart disease and other diseases of the circulatory system; Z86.711 Personal history of pulmonary embolism; Z86.010 Personal history of colon polyps; Z88.1 Allergy status to other antibiotic agents; Z88.0 Allergy status to penicillin; Z88.2 Allergy status to sulfonamides; R82.71 Bacteriuria; Z90.710 Acquired absence of both cervix and uterus; Z98.84 Bariatric surgery status; Z90.49 Acquired absence of other specified parts of digestive tract; Z90.89 Acquired absence of other organs; K58.9 Irritable bowel syndrome, unspecified; Z87.440 Personal history of urinary (tract) infections; Z79.51 Long term (current) use of inhaled steroids; Z88.5 Allergy status to narcotic agent; R26.9 Unspecified abnormalities of gait and mobility; K21.9 Gastro-esophageal reflux disease without esophagitis
CPT/HCPCS: 36415; 70450; 70551; 71275; 80048; 80053; 80164; 80306; 80320; 81001; 82140; 82570; 82607; 82747; 83050; 83735; 83880; 83930; 83935; 84300; 84439; 84443; 84484; 85025; 85027; 85379; 85610; 85730; 87635; 93005; 94640; 99285

== ENCOUNTER → 2020-09-06 | Outpatient (CLI) | payer MEDICARE ==
[2020-09-06 19:26] LABS: HCT 39.8 % (37.2-46.3); HGB 12.7 g/dL (12.0-15.0); MCH 30.3 pg (27.0-32.0); MCHC 31.9 g/dL (32.0-37.0); Mean Platelet Volume 9.5 fL (9.5-12.2); Platelet Count 153 X 10*3/uL (140-440); RBC 4.19 X 10*6/uL (4.10-5.20); RDW 13.9 % (11.5-14.5); WBC 8.75 X 10*3/uL (4.50-10.00)
[2020-09-06 20:05] LABS: T4, Free (Free Thyroxine) 1.4 ng/dL (0.80-1.80)
[2020-09-06 20:07] LABS: African American GFR (CKD) 90.9 (60.0-200.0); Albumin 4.1 g/dL (3.80-4.90); Albumin/Globulin Ratio 2.28 (1.60-3.17); Anion Gap 3.4 mmol/L (4.00-12.00); BUN/Creat Ratio 13.75 Ratio (12.00-20.00); Calcium 9.1 mg/dL (8.7-10.3); Carbon Dioxide 34.6 mmol/L (21.6-31.8); Globulin 1.8 g/dL (1.6-3.3); Non-African American GFR(CKD) 78.5 (60.0-200.0); Total Bilirubin 0.3 mg/dL (0.3-1.2); Total Protein 5.9 g/dL (6.2-8.2)
== END | disposition home or self-care (01) ==
LOC: LABWHC1 12:48
PROVIDERS: ATTEND Psychiatry & Neurology Psychiatry
DX: F31.60 Bipolar disorder, current episode mixed, unspecified (principal); Z79.899 Other long term (current) drug therapy
CPT/HCPCS: 36415; 80053; 84439; 84443; 85027

== ENCOUNTER → 2020-09-11 | Outpatient (CLI) | payer MEDICARE | END | disposition home or self-care (01) | LOC: LABWHC1 11:57 | PROVIDERS: ATTEND Psychiatry & Neurology Psychiatry | DX: F31.60 Bipolar disorder, current episode mixed, unspecified (principal); Z79.899 Other long term (current) drug therapy | CPT/HCPCS: 36415; 80164 ==

== ENCOUNTER → 2020-09-27 | Outpatient (CLI) | payer MEDICARE | END | disposition home or self-care (01) | LOC: LABWHC1 12:17 | PROVIDERS: ATTEND Psychiatry & Neurology Psychiatry | DX: F31.60 Bipolar disorder, current episode mixed, unspecified (principal); Z79.899 Other long term (current) drug therapy | CPT/HCPCS: 36415; 80164 ==

== ENCOUNTER 2020-10-04 22:54 | Observation (INO) | payer MEDICARE ==
--- NOTE | 2020-10-05 00:13 | ED ---
Fall HPI - General Chief Complaint: Fall Stated Complaint: Laceration/Left Upper Extremity Time Seen by Provider: 10/04/20 23:30 Source: patient, EMS Mode of arrival: EMS - History of Present Illness Initial Comments: 65-year-old female presents to the emergency department with a chief complaint of a fall. Patient reports a mechanical fall, tripping fall, landing on her left side. states the patient has a laceration on the medial aspect of the left proximal humerus. Patient reports pain at the injured site. There was some bleeding which has since resolved. Patient was brought to the ED via ambulance. Initially she was in quite a bit of pain according to her so she was given 50 g of fentanyl. Patient became drowsy soon after. Patient was drowsy on evaluation but is alert and oriented 3. Patient is not complaining of any pain. - Related Data Home Medications Medication Instructions Recorded Confirmed Gabapentin [Neurontin] 800 mg PO TID 12/17/13 06/10/20 Montelukast [Singulair] 10 mg PO HS 12/17/13 06/10/20 busPIRone HCL [Buspar] 30 mg PO BID 12/17/13 06/10/20 lamoTRIgine [LaMICtal] 100 mg PO BID 12/17/13 06/10/20 Albuterol Sulfate [Proair Hfa] 2 puff INHALATION RT-Q6H PRN 05/07/18 06/10/20 Cyclobenzaprine [Flexeril] 10 mg PO BID 06/01/19 06/10/20 Fluticasone Propion/Salmeterol 1 puff INHALATION RT-BID 06/01/19 06/10/20 [Wixela 250-50 Inhub] Levothyroxine Sodium [Synthroid] 150 mcg PO DAILY 03/29/20 06/10/20 Mupirocin 2% Oint [Bactroban 2% 1 applic TOPICAL BID 03/29/20 06/10/20 Oint] SILVER sulfADIAZINE CREAM 1 applic TOPICAL BID 04/26/20 06/10/20 [Silvadene Cream] Nystatin [Nystop] 1 applic TOPICAL BID 05/27/20 06/10/20 Previous Rx's Medication Instructions Recorded amLODIPine [Norvasc] 5 mg PO DAILY #30 tab 04/01/20 Cephalexin [Keflex] 500 mg PO Q8HR 7 Days #21 cap 06/12/20 Divalproex ER [Depakote ER] 1,000 mg PO HS 30 Days #30 06/12/20 tab.er.24h Divalproex ER [Depakote ER] 250 mg PO DAILY 30 Days #30 06/12/20 tab.er.24h Sertraline [Zoloft] 25 mg PO DAILY 30 Days #30 tab 06/12/20 Allergies Allergy/AdvReac Type Severity Reaction Status Date / Time codeine Allergy Unknown Verified 10/04/20 23:04 Childhood Penicillins Allergy Rash/Hives Verified 10/04/20 23:04 Sulfa (Sulfonamide Allergy Rash/Hives Verified 10/04/20 23:04 Antibiotics) Review of Systems ROS Statement: Those systems with pertinent positive or pertinent negative responses have been documented in the HPI. ROS Other: All systems not noted in ROS Statement are negative. Past Medical History Past Medical History: Asthma, COPD, Diabetes Mellitus, Fibromyalgia, GERD/Reflu x, Hypertension, Osteoarthritis (OA), Pneumonia, Pulmonary Embolus (PE), Skin Disorder, Thyroid Disorder Additional Past Medical History / Comment(s): Cervical disc disease/stenosis, scoliosis, recently having numbness/tingling L side of face/neck, recently saw process tank tender for L hemidiaphragmatic elevation-pt states she was told this was probably genetic, recently bronchitis and past bronchitis, pt states recent med change (water pill) d/t electrolyte problem/kidney function being affected, pt states she has had pulmonary emboli, past bilateral lower extremity cellulitis, edema lower extremities, IBS, hemorrhoids, benign colon polyps, sinus problems, UTIs, bacteremia/sepsis, cardiac murmur, past L ankle and L wrist fractures. History of Any Multi-Drug Resistant Organisms: None Reported Past Surgical History: Adenoidectomy, Section, Cholecystectomy, Hysterectomy, Tonsillectomy Additional Past Surgical History / Comment(s): EGD, colonoscopies, gastric bypass, surgery for deviated septum Past Anesthesia/Blood Transfusion Reactions: Previous Problems w/ Anesthesia Additional Past Anesthesia/Blood Transfusion Reaction / Comment(s): itching, some kind of problem after gastric bypass-not sure what happened Past Psychological History: Anxiety, Bipolar, Depression Smoking Status: Current every day smoker Past Alcohol Use History: None Reported Past Drug Use History: None Reported - Past Family History Mother Family Medical History: Congestive Heart Failure (CHF), Hypertension Father Additional Family Medical History / Comment(s): Father at the age of 45 yrs d/t having had rheumatic fever as a child and heart valve disease. General Exam Limitations: no limitations General appearance: alert, in no apparent distress, obese Head exam: Present: atraumatic, normocephalic, normal inspection Eye exam: Present: normal appearance, PERRL, EOMI Pupils: Present: normal accommodation ENT exam: Present: normal exam, normal oropharynx, mucous membranes moist Neck exam: Present: normal inspection, full ROM. Absent: tenderness Respiratory exam: Present: normal lung sounds bilaterally. Absent: respiratory distress Cardiovascular Exam: Present: regular rate, normal rhythm, normal heart sounds Extremities exam: Present: full ROM, tenderness, normal capillary refill, other (Palpable ulnar and radial pulses bilateral upper extremities). Absent: normal inspection (Laceration site near the medial aspect of the left upper extremity. Large laceration that also appears to be deep. Measures approximately 15 cm in length. No active bleeding at this time. Not able to visualize any bones.), pedal edema, calf tenderness Back exam: Present: normal inspection, full ROM. Absent: tenderness Neurological exam: Present: alert, oriented X3, normal gait Psychiatric exam: Present: normal affect, normal mood Skin exam: Present: warm, dry, intact, normal color Course Vital Signs 10/04/20 10/05/20 10/05/20 22:56 00:00 01:00 Temperature 97.4 F L Pulse Rate 73 67 67 Respiratory 18 18 18 Rate Blood Pressure 157/76 117/67 O2 Sat by Pulse 95 99 99 Oximetry 10/05/20 02:00 Temperature Pulse Rate 65 Respiratory 18 Rate Blood Pressure 135/69 O2 Sat by Pulse 100 Oximetry Procedures - Laceration Laceration #1 Consent Obtained: verbal consent Indication: laceration (Large laceration in the proximal upper extremity. This is measuring about 15 cm in length. Laceration is also deep.) Site: upper extremity Size (cm): 15 Description: linear, flap, clean Depth: simple, single layer Sedation/Analgesia: none Anesthetic Used: lidocaine 1% Anesthesia Technique: local infiltration Amount (mls): 10 Pre-repair: irrigated extensively, deep structures intact Type of Sutures: nylon Size of Sutures: 4-0 Number of Sutures: 5 Technique: simple, interrupted Patient Tolerated Procedure: well, no complications Medical Decision Making - Medical Decision Making 65-year-old female presents emergency department with chief complaint of fall. On physical examination, patient was drowsy after she received 50 mg of fentanyl in the ambulance. Patient has a large laceration measuring approximately 10-15 cm on the medial aspect of the left upper extremity. The laceration is deep as well. Some visible muscle fascia. Unable to perform any subcutaneous sutures. Laceration site was contaminated. Thoroughly irrigated with saline. I was able to grossly approximate the laceration with 5 sutures. X-rays are negative. CBC reveals leukocytosis, likely reactive. Patient started on IV cefazolin. Considering the size of the injury, the attending physician Dr Gould was sugge sting admission for surgical evaluation. I spoke with HERMINIA cortés from orthopedics who suggested consulted general surgery. Dr Gould spoke with Dr Garcia who recommended medical admission with a general surgery consult. Patient will be admitted for further medical management. - Lab Data Result diagrams: 10/05/20 00:03 10/05/20 00:03 Lab Results 10/05/20 10/05/20 Range/Units 00:03 00:03 WBC 14.0 H (3.8-10.6) k/uL RBC 4.53 (3.80-5.40) m/uL Hgb 13.7 (11.4-16.0) gm/dL Hct 43.4 (34.0-46.0) % MCV 95.7 (80.0-100.0) fL MCH 30.2 (25.0-35.0) pg MCHC 31.5 (31.0-37.0) g/dL RDW 14.6 (11.5-15.5) % Plt Count 170 (150-450) k/uL MPV 7.3 Neutrophils % 74 % Lymphocytes % 13 % Monocytes % 11 % Eosinophils % 1 % Basophils % 0 % Neutrophils # 10.3 H (1.3-7.7) k/uL Lymphocytes # 1.9 (1.0-4.8) k/uL Monocytes # 1.5 H (0-1.0) k/uL Eosinophils # 0.1 (0-0.7) k/uL Basophils # 0.1 (0-0.2) k/uL Sodium 134 L (137-145) mmol/L Potassium 4.4 (3.5-5.1) mmol/L Chloride 98 (98-107) mmol/L Carbon Dioxide 28 (22-30) mmol/L Anion Gap 8 mmol/L BUN 29 H (7-17) mg/dL Creatinine 0.94 (0.52-1.04) mg/dL Est GFR (CKD-EPI)AfAm 75 (>60 ml/min/1.73 sqM) Est GFR (CKD-EPI)NonAf 65 (>60 ml/min/1.73 sqM) Glucose 128 H (74-99) mg/dL Calcium 9.8 (8.4-10.2) mg/dL Total Bilirubin 0.3 (0.2-1.3) mg/dL AST 28 (14-36) U/L ALT 12 (4-34) U/L Alkaline Phosphatase 83 (38-126) U/L Total Protein 6.5 (6.3-8.2) g/dL Albumin 4.1 (3.5-5.0) g/dL Disposition Clinical Impression: Fall, Laceration Disposition: ADMITTED IP TO THIS HOSP Condition: Fair Is patient prescribed a controlled substance at d/c from ED?: No Time of Disposition: 03:00
[2020-10-05 00:17] LABS: Basophils # (A) 0.1 k/uL (0-0.2); Basophils % (A) 0 %; Eosinophils # (A) 0.1 k/uL (0-0.7); Eosinophils % (A) 1 %; HCT 43.4 % (34.0-46.0); HGB 13.7 gm/dL (11.4-16.0); Lymphocytes # (A) 1.9 k/uL (1.0-4.8); Lymphocytes % (A) 13 %; MCH 30.2 pg (25.0-35.0); MCHC 31.5 g/dL (31.0-37.0); MCV 95.7 fL (80.0-100.0); Mean Platelet Volume 7.3; Monocytes # (A) 1.5 k/uL (0-1.0); Monocytes % (A) 11 %; Neutrophils # (A) 10.3 k/uL (1.3-7.7); Neutrophils % (A) 74 %; Platelet Count 170 k/uL (150-450); RBC 4.53 m/uL (3.80-5.40); RDW 14.6 % (11.5-15.5)
[2020-10-05] MEDS ORDERED: ONDANSETRON 4 MG/2 ML VIAL IVP STA (00:57)
[2020-10-05] MEDS ORDERED: LIDOCAINE 1%-EPI 1:100,000 20 ML VIAL SQ STA (00:57)
[2020-10-05 01:11] LABS: Albumin 4.1 g/dL (3.5-5.0); Calcium 9.8 mg/dL (8.4-10.2); Potassium 4.4 mmol/L (3.5-5.1); Total Bilirubin 0.3 mg/dL (0.2-1.3); Total Protein 6.5 g/dL (6.3-8.2)
--- NOTE | 2020-10-05 01:15 | XR ---
EXAM: XR Left Shoulder, 2 or More Views CLINICAL HISTORY: ITS.REASON XR Reason: fall, large alceration TECHNIQUE: Two or more views of the left shoulder. COMPARISON: No relevant prior studies available. FINDINGS: Bones/joints: Suboptimal study. No acute fracture. No dislocation. Soft tissues: No radiopaque foreign body. IMPRESSION: No acute fracture.
[2020-10-05] MEDS ORDERED: SODIUM CHLORIDE 0.9% 1,000 ML IV STA (02:07)
[2020-10-05] MEDS ORDERED: NALOXONE 0.4 MG/ML 1 ML VIAL IV PRN (02:45)
[2020-10-05] MEDS ORDERED: LORazepam 2 MG/ML INJ IV PRN (02:45)
[2020-10-05 03:33] LABS: Lactic Acid, Venous 1.4 mmol/L (0.7-2.0)
[2020-10-05] MEDS: SODIUM CHLORIDE 0.9% 1,000 ML IV SCH ×2 (06:27→16:55)
[2020-10-05] MEDS: lamoTRIgine 100 MG TAB PO SCH ×2 (10:06→20:23)
--- NOTE | 2020-10-05 10:30 | P.HPIM ---
History of Present Illness 65-year-old female presents to the emergency department with a chief complaint of a fall. Patient reports a mechanical fall, tripping fall, landing on her left side. states the patient has a laceration on the medial aspect of the left proximal humerus. Patient reports pain at the injured site. There was some bleeding which has since resolved. Patient was brought to the ED via ambulance. Patient has a large laceration in the medial aspect of the right arm with significant bruising. Laceration was sutured in ER. Patient is drowsy not able to provide much of the history to me although patient was alert oriented 3 until she received fentanyl. Patient had a shoulder x-ray which did not show any fracture. Patient is presently a on 5 L bags and secondary to fentanyl. Patient does have history of COPD doesn't wear oxygen at home. Review of Systems Unable to assess due to her clinical condition Past Medical History Past Medical History: Asthma, COPD, Diabetes Mellitus, Fibromyalgia, GERD/Reflux, Hypertension, Osteoarthritis (OA), Pneumonia, Pulmonary Embolus (PE), Skin Disorder, Thyroid Disorder Additional Past Medical History / Comment(s): Cervical disc disease/stenosis, scoliosis, recently having numbness/tingling L side of face/neck, recently saw speech therapy assistant for L hemidiaphragmatic elevation-pt states she was told this was probably genetic, recently bronchitis and past bronchitis, pt states recent med change (water pill) d/t electrolyte problem/kidney function being affected, pt states she has had pulmonary emboli, past bilateral lower extremity cellulitis, edema lower extremities, IBS, hemorrhoids, benign colon polyps, sinus problems, UTIs, bacteremia/sepsis, cardiac murmur, past L ankle and L wrist fractures. History of Any Multi-Drug Resistant Organisms: None Reported Past Surgical History: Adenoidectomy, Section, Cholecystectomy, Hysterectomy, Tonsillectomy Additional Past Surgical History / Comment(s): EGD, colonoscopies, gastric bypass, surgery for deviated septum Past Anesthesia/Blood Transfusion Reactions: Previous Problems w/ Anesthesia Additional Past Anesthesia/Blood Transfusion Reaction / Comment(s): itching, some kind of problem after gastric bypass-not sure what happened Past Psychological History: Anxiety, Bipolar, Depression Smoking Status: Current every day smoker Past Alcohol Use History: None Reported Past Drug Use History: None Reported - Past Family History Mother Family Medical History: Congestive Heart Failure (CHF), Hypertension Father Additional Family Medical History / Comment(s): Father at the age of 45 yrs d/t having had rheumatic fever as a child and heart valve disease. Medications and Allergies Home Medications Medication Instructions Recorded Confirmed Type Gabapentin [Neurontin] 800 mg PO TID 12/17/13 10/05/20 History Montelukast [Singulair] 10 mg PO HS 12/17/13 10/05/20 History busPIRone HCL [Buspar] 30 mg PO BID 12/17/13 10/05/20 History lamoTRIgine [LaMICtal] 100 mg PO BID 12/17/13 10/05/20 History Albuterol Sulfate [Proair Hfa] 2 puff INHALATION RT-Q6H PRN 05/07/18 10/05/20 History Cyclobenzaprine [Flexeril] 10 mg PO BID 06/01/19 10/05/20 History Fluticasone Propion/Salmeterol 1 puff INHALATION RT-BID 06/01/19 10/05/20 History [Wixela 250-50 Inhub] Levothyroxine Sodium [Synthroid] 150 mcg PO DAILY 03/29/20 10/05/20 History amLODIPine [Norvasc] 5 mg PO DAILY #30 tab 04/01/20 10/05/20 Rx Citalopram Hydrobromide [CeleXA] 20 mg PO DAILY 10/05/20 10/05/20 History Divalproex ER [Depakote ER] 1,500 mg PO HS 10/05/20 10/05/20 History clonazePAM [KlonoPIN] 0.5 mg PO BID 10/05/20 10/05/20 History lisinopriL 20 mg PO DAILY 10/05/20 10/05/20 History Allergies Allergy/AdvReac Type Severity Reaction Status Date / Time codeine Allergy Unknown Verified 10/05/20 08:00 Childhood Penicillins Allergy Rash/Hives Verified 10/05/20 08:00 Sulfa (Sulfonamide Allergy Rash/Hives Verified 10/05/20 08:00 Antibiotics) Physical Exam Vitals: Vital Signs Temp Pulse Pulse Resp BP BP Pulse Ox 10/05/20 08:07 97.6 F 71 22 147/71 95 10/05/20 06:28 97.8 F 72 18 138/97 94 L 10/05/20 02:00 65 18 135/69 100 10/05/20 01:00 67 18 117/67 99 10/05/20 00:00 67 18 99 10/04/20 22:56 97.4 F L 73 18 157/76 95 Intake and Output 10/04/20 10/05/20 10/05/20 22:59 06:59 14:59 Other: Weight 106.594 kg PHYSICAL EXAMINATION: GENERAL: The patient is drowsy and unable to assess orientation, not in any acute distress. Obese HEENT: Pupils are round and equally reacting to light. EOMI. No scleral icterus. No conjunctival pallor. Normocephalic, atraumatic. No pharyngeal erythema. No thyromegaly. CARDIOVASCULAR: S1 and S2 present. No murmurs, rubs, or gallops. PULMONARY: Chest is clear to auscultation, no wheezing or crackles. ABDOMEN: Soft, nontender, nondistended, normoactive bowel sounds. No palpable organomegaly. MUSCULOSKELETAL: No joint swelling or deformity. EXTREMITIES: No cyanosis, clubbing, or pedal edema. NEUROLOGICAL: Gross neurological examination did not reveal any focal deficits. SKIN: Laceration as mentioned in the interval history Results CBC & Chem 7: 10/05/20 00:03 10/05/20 00:03 Labs: Abnormal Lab Results - Last 24 Hours (Table) 10/05/20 10/05/20 Range/Units 00:03 00:03 WBC 14.0 H (3.8-10.6) k/uL Neutrophils # 10.3 H (1.3-7.7) k/uL Monocytes # 1.5 H (0-1.0) k/uL Sodium 134 L (137-145) mmol/L BUN 29 H (7-17) mg/dL Glucose 128 H (74-99) mg/dL Assessment and Plan Plan: - mechanical fall and the laceration which was sutured -Drowsiness sleepiness: Secondary to fentanyl IV she received'patient will be started on Toradol and discontinue opiate medications for pain -Acute hypoxic respiratory failure liters of oxygen secondary to opiates which will be discontinued will be enough oxygen -COPD without any acute exacerbation -Type 2 diabetes mellitus -Gastroesophageal reflux disease -Hypertension -History of PE in the past -Hypothyroidism -Bipolar disorder -Continued nicotine use: Counseling was provided -DVT prophylaxis with Lovenox
[2020-10-05] MEDS: ALBUTEROL HFA INHALER INHALATION PRN ×2 (11:05→19:34)
[2020-10-05] MEDS: SYMBICORT 80-4.5 MCG INHALER INHALATION SCH ×2 (11:06→19:34)
--- NOTE | 2020-10-05 11:19 | P.GSCN ---
History of Present Illness Consult date: 10/05/20 History of present illness: 65-year-old female presented to the emergency department with a fall and laceration to the left upper extremity. This was not reported as a priority trauma. The patient does state that she is working with physical therapy as she has a chronic history of multiple recent falls. She does use a walker at home for ambulation. She remembers her fall in entirety and denies any trauma to the head or neck. She denies any pain elsewhere in her body. Laceration was repaired with approximated with interrupted skin sutures of nylon by the [facility] department providers. Based on discussion with the emergency department physician, plan was originally for discharge home. However, Patient was also provided with fentanyl and became quite drowsy. She began to require oxygen supplementation secondary to acute hypoxic respiratory failure. Secondary to these medical reasons, patient was admitted to medicine with a consult placed to surgery for evaluation of the wound. Review of Systems All systems: negative Past Medical History Past Medical History: Asthma, COPD, Diabetes Mellitus, Fibromyalgia, GERD/Reflux, Hypertension, Osteoarthritis (OA), Pneumonia, Pulmonary Embolus (PE), Skin Disorder, Thyroid Disorder Additional Past Medical History / Comment(s): Cervical disc disease/stenosis, scoliosis, recently having numbness/tingling L side of face/neck, recently saw medical center representative for L hemidiaphragmatic elevation-pt states she was told this was probably genetic, recently bronchitis and past bronchitis, pt states recent med change (water pill) d/t electrolyte problem/kidney function being affected, pt states she has had pulmonary emboli, past bilateral lower extremity cellulitis, edema lower extremities, IBS, hemorrhoids, benign colon polyps, sinus problems, UTIs, bacteremia/sepsis, cardiac murmur, past L ankle and L wrist fractures. History of Any Multi-Drug Resistant Organisms: None Reported Past Surgical History: Adenoidectomy, Section, Cholecystectomy, Hy sterectomy, Tonsillectomy Additional Past Surgical History / Comment(s): EGD, colonoscopies, gastric bypass, surgery for deviated septum Past Anesthesia/Blood Transfusion Reactions: Previous Problems w/ Anesthesia Additional Past Anesthesia/Blood Transfusion Reaction / Comm: itching, some kind of problem after gastric bypass-not sure what happened Past Psychological History: Anxiety, Bipolar, Depression Smoking Status: Current every day smoker Past Alcohol Use History: None Reported Past Drug Use History: None Reported - Past Family History Mother Family Medical History: Congestive Heart Failure (CHF), Hypertension Father Additional Family Medical History / Comment(s): Father at the age of 45 yrs d/t having had rheumatic fever as a child and heart valve disease. Medications and Allergies Home Medications Medication Instructions Recorded Confirmed Type Gabapentin [Neurontin] 800 mg PO TID 12/17/13 10/05/20 History Montelukast [Singulair] 10 mg PO HS 12/17/13 10/05/20 History busPIRone HCL [Buspar] 30 mg PO BID 12/17/13 10/05/20 History lamoTRIgine [LaMICtal] 100 mg PO BID 12/17/13 10/05/20 History Albuterol Sulfate [Proair Hfa] 2 puff INHALATION RT-Q6H PRN 05/07/18 10/05/20 History Cyclobenzaprine [Flexeril] 10 mg PO BID 06/01/19 10/05/20 History Fluticasone Propion/Salmeterol 1 puff INHALATION RT-BID 06/01/19 10/05/20 History [Wixela 250-50 Inhub] Levothyroxine Sodium [Synthroid] 150 mcg PO DAILY 03/29/20 10/05/20 History amLODIPine [Norvasc] 5 mg PO DAILY #30 tab 04/01/20 10/05/20 Rx Citalopram Hydrobromide [CeleXA] 20 mg PO DAILY 10/05/20 10/05/20 History Divalproex ER [Depakote ER] 1,500 mg PO HS 10/05/20 10/05/20 History clonazePAM [KlonoPIN] 0.5 mg PO BID 10/05/20 10/05/20 History lisinopriL 20 mg PO DAILY 10/05/20 10/05/20 History Allergies Allergy/AdvReac Type Severity Reaction Status Date / Time codeine Allergy Unknown Verified 10/05/20 08:00 Childhood Penicillins Allergy Rash/Hives Verified 10/05/20 08:00 Sulfa (Sulfonamide Allergy Rash/Hives Verified 10/05/20 08:00 Antibiotics) Surgical - Exam Osteopathic Statement: *. No significant issues noted on an osteopathic structural exam other than those noted in the History and Physical/Consult. Vital Signs Temp Pulse Resp BP Pulse Ox 97.4 F L 73 18 157/76 95 10/04/20 22:56 10/04/20 22:56 10/04/20 22:56 10/04/20 22:56 10/04/20 22:56 - General well nourished, no distress - Eyes PERRL, normal ocular movement - ENT normal pinna, normal nares, normal mucosa, no hearing loss - Neck trachea midline - Respiratory Currently normal respiratory effort with nasal cannula O2 at 2 L - Abdomen Soft, nontender, nondistended, no rebound, no guarding, no obvious ecchymosis or injury - Integumentary Left upper extremity axillary laceration measuring approximately 12 cm, closed with nylon suture with surrounding ecchymosis, no obvious necrosis or purulent drainage, no palpable fluctuance - Neurologic normal coordination, normal sensation - Psychiatric oriented to time, oriented to person, oriented to place Results - Labs 10/05/20 00:03 10/05/20 00:03 Abnormal Lab Results - Last 24 Hours (Table) 10/05/20 10/05/20 Range/Units 00:03 00:03 WBC 14.0 H (3.8-10.6) k/uL Neutrophils # 10.3 H (1.3-7.7) k/uL Monocytes # 1.5 H (0-1.0) k/uL Sodium 134 L (137-145) mmol/L BUN 29 H (7-17) mg/dL Glucose 128 H (74-99) mg/dL Diabetes panel 10/05/20 Range/Units 00:03 Sodium 134 L (137-145) mmol/L Potassium 4.4 (3.5-5.1) mmol/L Chloride 98 (98-107) mmol/L Carbon Dioxide 28 (22-30) mmol/L BUN 29 H (7-17) mg/dL Creatinine 0.94 (0.52-1.04) mg/dL Glucose 128 H (74-99) mg/dL Calcium 9.8 (8.4-10.2) mg/dL AST 28 (14-36) U/L ALT 12 (4-34) U/L Alkaline Phosphatase 83 (38-126) U/L Total Protein 6.5 (6.3-8.2) g/dL Albumin 4.1 (3.5-5.0) g/dL Calcium panel 10/05/20 Range/Units 00:03 Calcium 9.8 (8.4-10.2) mg/dL Albumin 4.1 (3.5-5.0) g/dL Pituitary panel 10/05/20 Range/Units 00:03 Sodium 134 L (137-145) mmol/L Potassium 4.4 (3.5-5.1) mmol/L Chloride 98 (98-107) mmol/L Carbon Dioxide 28 (22-30) mmol/L BUN 29 H (7-17) mg/dL Creatinine 0.94 (0.52-1.04) mg/dL Glucose 128 H (74-99) mg/dL Calcium 9.8 (8.4-10.2) mg/dL Adrenal panel 10/05/20 Range/Units 00:03 Sodium 134 L (137-145) mmol/L Potassium 4.4 (3.5-5.1) mmol/L Chloride 98 (98-107) mmol/L Carbon Dioxide 28 (22-30) mmol/L BUN 29 H (7-17) mg/dL Creatinine 0.94 (0.52-1.04) mg/dL Glucose 128 H (74-99) mg/dL Calcium 9.8 (8.4-10.2) mg/dL Total Bilirubin 0.3 (0.2-1.3) mg/dL AST 28 (14-36) U/L ALT 12 (4-34) U/L Alkaline Phosphatase 83 (38-126) U/L Total Protein 6.5 (6.3-8.2) g/dL Albumin 4.1 (3.5-5.0) g/dL Assessment and Plan Plan: 65-year-old female with laceration of left upper extremity that has been repaired by emergency department after a recent fall. This was not called as a priority trauma. Per discussion with emergency department physician, patient was stable for discharge prior to drowsiness, likely secondary to medication and concern for oxygenation status with acute hypoxic respiratory failure. The laceration was repaired by the emergency department providers and does appear in good condition. Based on the ecchymosis surrounding the wound, there is still concern for a necrotic flap to form. Patient will require time to review the evolution of the wound. Currently, it does appear to be healing well. Continue with medical management on patient's respiratory status. No further surgical procedure is planned at this time.
[2020-10-05] MEDS: BACITRACIN OINT 1 EACH PACKET TOPICAL SCH ×3 (12:05→20:30)
--- NOTE | 2020-10-05 12:59 | P.DS ---
Providers Date of admission: 10/05/20 02:39 Attending physician: Megan Esparza Consults: 10/05/20 02:45 Consult Physician Stat Consulting Provider: Alexandrea Garcia Consult Reason/Comments: Fall, large laceration to the left upper arm Do you want consulting provider notified?: Yes Primary care physician: Andrzej Wheeler [place] [facility] Course: Patient is clinically doing well more awake now. Patient was evaluated by general surgery no further intervention is being planned. If I am able to wean her off oxygen patient was discharged later today. PHYSICAL EXAMINATION: GENERAL: The patient is alert and oriented x3, not in any acute distress. Well developed, well nourished. HEENT: Pupils are round and equally reacting to light. EOMI. No scleral icterus. No conjunctival pallor. Normocephalic, atraumatic. No pharyngeal erythema. No thyromegaly. CARDIOVASCULAR: S1 and S2 present. No murmurs, rubs, or gallops. PULMONARY: Chest is clear to auscultation, no wheezing or crackles. ABDOMEN: Soft, nontender, nondistended, normoactive bowel sounds. No palpable organomegaly. MUSCULOSKELETAL: No joint swelling or deformity. EXTREMITIES: No cyanosis, clubbing, or pedal edema. NEUROLOGICAL: Gross neurological examination did not reveal any focal deficits. SKIN: Laceration which was sutured in the medial aspect of the left arm just below the axilla Patient Condition at Discharge: Fair Plan - Discharge Summary New Discharge Prescriptions: No Action lamoTRIgine [LaMICtal] 100 mg PO BID busPIRone HCL [Buspar] 30 mg PO BID Montelukast [Singulair] 10 mg PO HS Gabapentin [Neurontin] 800 mg PO TID Albuterol Sulfate [Proair Hfa] 2 puff INHALATION RT-Q6H PRN PRN Reason: Shortness Of Breath Cyclobenzaprine [Flexeril] 10 mg PO BID Fluticasone Propion/Salmeterol [Wixela 250-50 Inhub] 1 puff INHALATION RT-BID Levothyroxine Sodium [Synthroid] 150 mcg PO DAILY amLODIPine [Norvasc] 5 mg PO DAILY #30 tab Citalopram Hydrobromide [CeleXA] 20 mg PO DAILY Divalproex ER [Depakote ER] 1,500 mg PO HS lisinopriL 20 mg PO DAILY clonazePAM [KlonoPIN] 0.5 mg PO BID Discharge Medication List Gabapentin [Neurontin] 800 mg PO TID 12/17/13 [History] Montelukast [Singulair] 10 mg PO HS 12/17/13 [History] busPIRone HCL [Buspar] 30 mg PO BID 12/17/13 [History] lamoTRIgine [LaMICtal] 100 mg PO BID 12/17/13 [History] Albuterol Sulfate [Proair Hfa] 2 puff INHALATION RT-Q6H PRN 05/07/18 [History] Cyclobenzaprine [Flexeril] 10 mg PO BID 06/01/19 [History] Fluticasone Propion/Salmeterol [Wixela 250-50 Inhub] 1 puff INHALATION RT-BID 06/01/19 [History] Levothyroxine Sodium [Synthroid] 150 mcg PO DAILY 03/29/20 [History] amLODIPine [Norvasc] 5 mg PO DAILY #30 tab 04/01/20 [Rx] Citalopram Hydrobromide [CeleXA] 20 mg PO DAILY 10/05/20 [History] Divalproex ER [Depakote ER] 1,500 mg PO HS 10/05/20 [History] clonazePAM [KlonoPIN] 0.5 mg PO BID 10/05/20 [History] lisinopriL 20 mg PO DAILY 10/05/20 [History] Follow up Appointment(s)/Referral(s): Andrzej Wheeler MD [Primary Care Provider] - 1-2 days
[2020-10-05] MEDS: GABAPENTIN 400 MG CAP PO SCH ×2 (16:56→20:24)
[2020-10-05] MEDS: MONTELUKAST 10 MG TAB PO SCH (20:24)
[2020-10-05] MEDS: CYCLOBENZAPRINE 10 MG TAB PO SCH (20:24)
[2020-10-05] MEDS: DIVALPROEX ER 500 MG TAB.ER.24H PO SCH (20:24)
[2020-10-05] MEDS: busPIRone HCl 10 MG TAB PO SCH (20:30)
[2020-10-05] MEDS ORDERED: FAMOTIDINE 20 MG TAB PO SCH (21:00)
[2020-10-06] MEDS: SODIUM CHLORIDE 0.9% 1,000 ML IV SCH ×2 (04:51→20:18)
[2020-10-06] MEDS: LEVOTHYROXINE 75 MCG TAB PO SCH (05:42)
[2020-10-06] MEDS: SYMBICORT 80-4.5 MCG INHALER INHALATION SCH ×2 (07:10→15:38)
[2020-10-06] MEDS: IPRATROPIUM-ALBUTEROL 3 ML NEB INHALATION PRN ×2 (07:10→10:58)
[2020-10-06] MEDS ORDERED: FAMOTIDINE 20 MG TAB PO SCH (09:00)
[2020-10-06] MEDS ORDERED: lisinopriL 20 MG TAB PO SCH (09:00)
[2020-10-06] MEDS: CITALOPRAM HYDROBROMIDE 20 MG TAB PO SCH (09:05)
[2020-10-06] MEDS: lamoTRIgine 100 MG TAB PO SCH ×2 (09:05→20:21)
[2020-10-06] MEDS: GABAPENTIN 400 MG CAP PO SCH ×3 (09:05→20:20)
[2020-10-06] MEDS: CYCLOBENZAPRINE 10 MG TAB PO SCH ×2 (09:05→20:21)
[2020-10-06] MEDS: busPIRone HCl 10 MG TAB PO SCH ×2 (09:05→20:20)
[2020-10-06] MEDS: BACITRACIN OINT 1 EACH PACKET TOPICAL SCH ×3 (09:06→20:21)
[2020-10-06 09:12] LABS: HGB 11.9 g/dL (12.0-15.0); MCH 30.3 pg (27.0-32.0); MCHC 30.5 g/dL (32.0-37.0); MCV 99.2 fL (80.0-97.0); Mean Platelet Volume 10.9 fL (9.5-12.2); Platelet Count 138 X 10*3/uL (140-440); RBC 3.93 X 10*6/uL (4.10-5.20); RDW 14.5 % (11.5-14.5); WBC 15.81 X 10*3/uL (4.50-10.00)
[2020-10-06 09:30] LABS: African American GFR (CKD) 112.4 (60.0-200.0); Anion Gap 4.7 mmol/L (4.00-12.00); Calcium 9.3 mg/dL (8.7-10.3); Carbon Dioxide 33.3 mmol/L (21.6-31.8); Potassium 4.8 mmol/L (3.5-5.5)
[2020-10-06] MEDS: clonazePAM 0.5 MG TAB PO PRN (10:07)
[2020-10-06] MEDS: ACETAMINOPHEN TAB 325 MG TAB PO PRN ×2 (10:07→17:50)
--- NOTE | 2020-10-06 15:06 | P.PN ---
Subjective 65-year-old female presents to the emergency department with a chief complaint of a fall. Patient reports a mechanical fall, tripping fall, landing on her left side. states the patient has a laceration on the medial aspect of the left proximal humerus. Patient reports pain at the injured site. There was some bleeding which has since resolved. Patient was brought to the ED via ambulance. Patient has a large laceration in the medial aspect of the right arm with significant bruising. Laceration was sutured in ER. Patient is drowsy not able to provide much of the history to me although patient was alert oriented 3 until she received fentanyl. Patient had a shoulder x-ray which did not show any fracture. Patient is presently a on 5 L bags and secondary to fentanyl. Patient does have history of COPD doesn't wear oxygen at home. 10/06/2020 Patient is a not in COPD exacerbation but still requiring oxygen this is provoked probably because of her emphysema. Patient will require 2 L of oxygen upon discharge unfortunately I'm unable to arrange that today once she gets home oxygen probably can be discharged tomorrow. Patient does have leukocytosis, the laceration site doesn't appear to be infected but does have some bleeding which need pressure dressing. Patient will be started on Keflex prophylactically as she is high risk for cellulitis because of residual skin breakdown. Constitutional: Denied any fatigue denied any fever. Cardio vascular: denied any chest pain, palpitations Gastrointestinal denied any nausea vomiting Pulmonary: Denied any shortness of breath cough Neurologic denied any new focal deficits All inpatient medications were reviewed and appropriate changes in these medications as dictated in the interval history and assessment and plan. Objective - Vital Signs Vital signs: Vital Signs Temp 98.0 F 10/06/20 14:46 Pulse 70 10/06/20 14:46 Resp 20 10/06/20 14:46 BP 112/64 10/06/20 14:46 Pulse Ox 95 10/06/20 14:46 Intake & Output 10/05/20 10/06/20 10/06/20 18:59 06:59 18:59 Intake Total 240 420 Balance 240 420 Weight 106.594 kg Intake: Oral 240 420 Other: Voiding Method Toilet Toilet # Voids 1 1 2 # Bowel Movements 1 - Exam PHYSICAL EXAMINATION: GENERAL: The patient is drowsy and unable to assess orientation, not in any acute distress. Obese HEENT: Pupils are round and equally reacting to light. EOMI. No scleral icterus. No conjunctival pallor. Normocephalic, atraumatic. No pharyngeal erythema. No thyromegaly. CARDIOVASCULAR: S1 and S2 present. No murmurs, rubs, or gallops. PULMONARY: Chest is clear to auscultation, no wheezing or crackles. ABDOMEN: Soft, nontender, nondistended, normoactive bowel sounds. No palpable organomegaly. MUSCULOSKELETAL: No joint swelling or deformity. EXTREMITIES: No cyanosis, clubbing, or pedal edema. NEUROLOGICAL: Gross neurological examination did not reveal any focal deficits. SKIN: Laceration as mentioned in the interval history - Labs CBC & Chem 7: 10/06/20 05:05 10/06/20 05:05 Labs: Abnormal Lab Results - Last 24 Hours (Table) 10/06/20 10/06/20 Range/Units 05:05 05:05 WBC 15.81 H (4.50-10.00) X 10*3/uL RBC 3.93 L (4.10-5.20) X 10*6/uL Hgb 11.9 L (12.0-15.0) g/dL MCV 99.2 H (80.0-97.0) fL MCHC 30.5 L (32.0-37.0) g/dL Plt Count 138 L (140-440) X 10*3/uL Sodium 132 L (135-145) mmol/L Chloride 94 L (96-109) mmol/L Carbon Dioxide 33.3 H (21.6-31.8) mmol/L BUN/Creatinine Ratio 30.00 H (12.00-20.00) Ratio Microbiology - Last 24 Hours (Table) 10/04/20 23:45 Blood Culture - Preliminary Blood No Growth after 24 hours 10/05/20 00:03 Blood Culture - Preliminary Blood No Growth after 24 hours Assessment and Plan Plan: - mechanical fall and the laceration which was sutured does have some bleeding from that site which needs pressure dressing. Patient was started on antibiotics because of above-mentioned reasons -Drowsiness sleepiness: Secondary to fentanyl IV she received'patient will be started on Toradol and discontinue opiate medications for pain -Acute hypoxic respiratory failure liters of oxygen secondary to opiates which will be discontinued. -COPD without any acute exacerbation, will require home oxygen -Type 2 diabetes mellitus -Gastroesophageal reflux disease -Hypertension -History of PE in the past -Hypothyroidism -Bipolar disorder -Continued nicotine use: Counseling was provided -DVT prophylaxis with Lovenox
[2020-10-06] MEDS: ALBUTEROL HFA INHALER INHALATION PRN ×2 (15:38→19:44)
[2020-10-06] MEDS: CEPHALEXIN 500 MG CAP PO SCH ×2 (16:29→20:21)
[2020-10-06] MEDS: DIVALPROEX ER 500 MG TAB.ER.24H PO SCH (20:20)
[2020-10-06] MEDS: FAMOTIDINE 20 MG TAB PO SCH (20:20)
[2020-10-06] MEDS: MONTELUKAST 10 MG TAB PO SCH (20:21)
[2020-10-07] MEDS: LEVOTHYROXINE 75 MCG TAB PO SCH (05:44)
[2020-10-07] MEDS: IPRATROPIUM-ALBUTEROL 3 ML NEB INHALATION PRN ×2 (07:19→10:47)
[2020-10-07] MEDS: SYMBICORT 80-4.5 MCG INHALER INHALATION SCH (07:20)
[2020-10-07] MEDS: SODIUM CHLORIDE 0.9% 1,000 ML IV SCH (08:33)
[2020-10-07] MEDS: CYCLOBENZAPRINE 10 MG TAB PO SCH (08:33)
[2020-10-07] MEDS: FAMOTIDINE 20 MG TAB PO SCH (08:33)
[2020-10-07] MEDS: busPIRone HCl 10 MG TAB PO SCH (08:33)
[2020-10-07] MEDS: CITALOPRAM HYDROBROMIDE 20 MG TAB PO SCH (08:34)
[2020-10-07] MEDS: lamoTRIgine 100 MG TAB PO SCH (08:34)
[2020-10-07] MEDS: GABAPENTIN 400 MG CAP PO SCH (08:34)
[2020-10-07] MEDS: BACITRACIN OINT 1 EACH PACKET TOPICAL SCH (08:34)
[2020-10-07 08:39] VITALS: BP 121/69; RESP 20; TEMP 98
--- NOTE | 2020-10-07 08:39 | P.PN ---
Subjective Progress Note Date: 10/07/20 Patient seen and examined at bedside. Patient was initially discharged home, however did require continued oxygen supplementation and was kept as an inpatient. Has had some mild bleeding from the laceration site, however no significant blood loss. Patient denies any significant pain at the site. Objective - Vital Signs Vital signs: Vital Signs Temp 98.1 F 10/07/20 02:00 Pulse 75 10/07/20 07:30 Resp 16 10/07/20 02:00 BP 117/67 10/07/20 02:00 Pulse Ox 98 10/07/20 02:00 Intake & Output 10/06/20 10/07/20 10/07/20 18:59 06:59 18:59 Intake Total 660 600 Balance 660 600 Intake: Intake, IV Titration 600 Amount Sodium Chloride 0.9% 1, 600 000 ml @ 75 mls/hr IV . [id number] [facility] Rx#:[id number] Oral 660 Other: Voiding Method Toilet Toilet Toilet # Voids 2 1 # Bowel Movements 1 - Constitutional General appearance: Present: cooperative, no acute distress - Gastrointestinal Gastrointestinal Comment(s): Soft, nontender, nondistended, no rebound, no guarding - Integumentary Integumentary Comment(s): Left axillary laceration with continued surrounding ecchymosis, no obvious induration or fluctuance - Musculoskeletal Musculoskeletal: Present: generalized weakness - Labs CBC & Chem 7: 10/06/20 05:05 10/06/20 05:05 Labs: Abnormal Lab Results - Last 24 Hours (Table) 10/06/20 10/06/20 Range/Units 05:05 05:05 WBC 15.81 H (4.50-10.00) X 10*3/uL RBC 3.93 L (4.10-5.20) X 10*6/uL Hgb 11.9 L (12.0-15.0) g/dL MCV 99.2 H (80.0-97.0) fL MCHC 30.5 L (32.0-37.0) g/dL Plt Count 138 L (140-440) X 10*3/uL Sodium 132 L (135-145) mmol/L Chloride 94 L (96-109) mmol/L Carbon Dioxide 33.3 H (21.6-31.8) mmol/L BUN/Creatinine Ratio 30.00 H (12.00-20.00) Ratio Microbiology - Last 24 Hours (Table) 10/05/20 00:03 Blood Culture - Preliminary Blood No Growth after 48 hours 10/04/20 23:45 Blood Culture - Preliminary Blood No Growth after 48 hours Assessment and Plan Plan: 65-year-old female with oxygen requirement secondary to respiratory failure. Left upper extremity laceration was evaluated with no significant change from previous exam. I did recommend patient follow-up as an outpatient for continued wound care and removal of suture. Patient is agreeable to this plan.
[2020-10-07] MEDS: CEPHALEXIN 500 MG CAP PO SCH (08:43)
[2020-10-07] MEDS ORDERED: lisinopriL 10 MG TAB PO SCH (09:00)
[2020-10-07] MEDS: clonazePAM 0.5 MG TAB PO PRN (09:03)
[2020-10-07 11:22] VITALS: PULSE 77
--- NOTE | 2020-10-07 12:31 | P.DS ---
Providers Date of admission: 10/05/20 02:39 Expected date of discharge: 10/07/20 Attending physician: Andrzej Wheeler Consults: 10/05/20 02:45 Consult Physician Stat Consulting Provider: Alexandrea Garcia Consult Reason/Comments: Fall, large laceration to the left upper arm Do you want consulting provider notified?: Yes Primary care physician: Andrzej Wheeler Hospital Course: Final diagnosis - mechanical fall and the laceration which was sutured -Drowsiness sleepiness: Secondary to fentanyl, resolved -Acute hypoxic respiratory failure secondary to opiates -COPD without any acute exacerbation -Type 2 diabetes mellitus -Gastroesophageal reflux disease -Hypertension -History of PE in the past -Hypothyroidism -Bipolar disorder -Continued nicotine use: Counseling was provided -DVT prophylaxis Discharge disposition Patient is being discharged in a stable condition with guarded prognosis to home. Patient will follow-up with Dr. Wheeler in the outpatient setting upon discharge. Patient is also to follow-up with pulmonary outpatient. She will continue on oral Keflex 3 times daily for the next 5 days to complete the course. Total time taken is greater than 35 minutes. Hospital course 65-year-old female presents to the emergency department with a chief complaint of a fall. Patient reports a mechanical fall, tripping fall, landing on her left side. states the patient has a laceration on the medial aspect of the left proximal humerus. Patient reports pain at the injured site. There was some bleeding which has since resolved. Patient was brought to the ED via ambulance. Patient has a large laceration in the medial aspect of the right arm with significant bruising. Laceration was sutured in ER. Patient is drowsy not able to provide much of the history to me although patient was alert oriented 3 until she received fentanyl. Patient had a shoulder x-ray which did not show any fracture. Patient is presently a on 5 L bags and secondary to fentanyl. Patient does have history of COPD doesn't wear oxygen at home. 10/07/2020 Patient is seen and evaluated and follow-up with no acute overnight issues. Patient was seen and evaluated by pulmonary along with surgery for left upper extremity laceration with sutures and was placed on Keflex. Patient will continue with oral Keflex 500 mg 3 times daily for the next 5 days to complete the course. Patient continues to require oxygen at 3 L via nasal cannula for her COPD. Home O2 was evaluated and patient's oxygen saturation was 87% on room air with exercise and case management following and making arrangements for oxygen in the outpatient setting. Instructed the patient to follow-up with primary care provider this week along with pulmonary for further testing. Patient instructed to avoid all tobacco use and exposure especially with oxygen in the home. Currently no reports of chest pain, worsening shortness of breath, or palpitations. Patient is afebrile. No reports of nausea or vomiting and patient is tolerating diet. Patient will be discharged home today. On exam vital signs are stable. Cardio S1, S2 are muffled. Respiratory system shows diminished breath sounds at the bases with no wheezing or rhonchi noted. Abdomen is soft and obese, and nontender. Nervous system shows no focal deficits. Please refer to medication reconciliation sheet for a list of medications. Patient Condition at Discharge: Fair Plan - Discharge Summary Discharge Rx Participant: Yes New Discharge Prescriptions: New Cephalexin [Keflex] 500 mg PO TID 5 Days #15 cap Bacitracin Zinc/Polymyxin B [Bacitracin-Polymyxin Ointment] 1 applic TOPICAL DAILY #30 gm Naproxen [Naprosyn] 250 mg PO BID PRN #30 tab PRN Reason: Pain Famotidine [Pepcid] 20 mg PO BID #20 tab Doxycycline Monohydrate [Monodox] 100 mg PO Q12HR #10 cap Ipratropium-Albuterol Nebulize [Duoneb 0.5 mg-3 mg/3 ml Soln] 3 ml INHALATION RT-QID PRN #100 ml PRN Reason: Shortness Of Breath Or Wheezing Acetaminophen Tab [Tylenol] 650 mg PO Q6HR PRN tab PRN Reason: Mild Pain Or Fever > 100.5 Continue lamoTRIgine [LaMICtal] 100 mg PO BID busPIRone HCL [Buspar] 30 mg PO BID Montelukast [Singulair] 10 mg PO HS Gabapentin [Neurontin] 800 mg PO TID Albuterol Sulfate [Proair Hfa] 2 puff INHALATION RT-Q6H PRN PRN Reason: Shortness Of Breath Cyclobenzaprine [Flexeril] 10 mg PO BID Fluticasone Propion/Salmeterol [Wixela 250-50 Inhub] 1 puff INHALATION RT-BID Levothyroxine Sodium [Synthroid] 150 mcg PO DAILY amLODIPine [Norvasc] 5 mg PO DAILY #30 tab Citalopram Hydrobromide [CeleXA] 20 mg PO DAILY Divalproex ER [Depakote ER] 1,500 mg PO HS lisinopriL 20 mg PO DAILY clonazePAM [KlonoPIN] 0.5 mg PO BID Discharge Medication List Gabapentin [Neurontin] 800 mg PO TID 12/17/13 [History] Montelukast [Singulair] 10 mg PO HS 12/17/13 [History] busPIRone HCL [Buspar] 30 mg PO BID 12/17/13 [History] lamoTRIgine [LaMICtal] 100 mg PO BID 12/17/13 [History] Albuterol Sulfate [Proair Hfa] 2 puff INHALATION RT-Q6H PRN 05/07/18 [History] Cyclobenzaprine [Flexeril] 10 mg PO BID 06/01/19 [History] Fluticasone Propion/Salmeterol [Wixela 250-50 Inhub] 1 puff INHALATION RT-BID 06/01/19 [History] Levothyroxine Sodium [Synthroid] 150 mcg PO DAILY 03/29/20 [History] amLODIPine [Norvasc] 5 mg PO DAILY #30 tab 04/01/20 [Rx] Bacitracin Zinc/Polymyxin B [Bacitracin-Polymyxin Ointment] 1 applic TOPICAL DAILY #30 gm 10/05/20 [Rx] Citalopram Hydrobromide [CeleXA] 20 mg PO DAILY 10/05/20 [History] Divalproex ER [Depakote ER] 1,500 mg PO HS 10/05/20 [History] Famotidine [Pepcid] 20 mg PO BID #20 tab 10/05/20 [Rx] Naproxen [Naprosyn] 250 mg PO BID PRN #30 tab 10/05/20 [Rx] clonazePAM [KlonoPIN] 0.5 mg PO BID 10/05/20 [History] lisinopriL 20 mg PO DAILY 10/05/20 [History] Doxycycline Monohydrate [Monodox] 100 mg PO Q12HR #10 cap 10/06/20 [Rx] Acetaminophen Tab [Tylenol] 650 mg PO Q6HR PRN tab 10/07/20 [Rx] Cephalexin [Keflex] 500 mg PO TID 5 Days #15 cap 10/07/20 [Rx] Ipratropium-Albuterol Nebulize [Duoneb 0.5 mg-3 mg/3 ml Soln] 3 ml INHALATION RT-QID PRN #100 ml 10/07/20 [Rx] Follow up Appointment(s)/Referral(s): Andrzej Wheeler MD [Primary Care Provider] - 10/10/20 1:20 pm [facility] [NON-STAFF] - As Needed (Supplier of Home Oxygen ) [facility], [NON-STAFF] - 1-2 Days Alexandrea Garcia DO [Doctor of Osteopathic Medicine] - 10/14/20 10:00 am Patient Instructions/Handouts: Laceration (DC), Fall Prevention (DC) Discharge Disposition: HOME WITH HOME HEALTH SERVICES
== END 2020-10-07 12:15 | disposition home health service (06) ==
LOC: EC 22:54 → 6NMEDSUR 10-05 02:39
PROVIDERS: ADMIT Family Medicine; ATTEND Family Medicine
DX: S41.112A Laceration without foreign body of left upper arm, initial encounter (principal); W01.0XXA Fall on same level from slipping, tripping and stumbling without subsequent striking against object, initial encounter; Y92.009 Unspecified place in unspecified non-institutional (private) residence as the place of occurrence of the external cause; J96.01 Acute respiratory failure with hypoxia; T40.415A Adverse effect of fentanyl or fentanyl analogs, initial encounter; Y92.238 Other place in hospital as the place of occurrence of the external cause; J43.9 Emphysema, unspecified; E11.9 Type 2 diabetes mellitus without complications; I10 Essential (primary) hypertension; D72.829 Elevated white blood cell count, unspecified; M19.90 Unspecified osteoarthritis, unspecified site; K21.9 Gastro-esophageal reflux disease without esophagitis; E03.9 Hypothyroidism, unspecified; M41.9 Scoliosis, unspecified; M79.7 Fibromyalgia; F31.9 Bipolar disorder, unspecified; F41.9 Anxiety disorder, unspecified; F17.200 Nicotine dependence, unspecified, uncomplicated; E66.9 Obesity, unspecified; Z68.41 Body mass index [BMI] 40.0-44.9, adult; Z79.51 Long term (current) use of inhaled steroids; Z79.890 Hormone replacement therapy; Z79.899 Other long term (current) drug therapy; Z88.0 Allergy status to penicillin; Z88.5 Allergy status to narcotic agent; Z88.2 Allergy status to sulfonamides; Z90.710 Acquired absence of both cervix and uterus; Z98.84 Bariatric surgery status; Z90.49 Acquired absence of other specified parts of digestive tract; Z90.89 Acquired absence of other organs; Z86.711 Personal history of pulmonary embolism; Z91.81 History of falling; Z87.19 Personal history of other diseases of the digestive system; Z20.822 Contact with and (suspected) exposure to COVID-19; Z82.49 Family history of ischemic heart disease and other diseases of the circulatory system
CPT/HCPCS: 96365; 96375; 99284; 12005; 36415; 94640 ×6; 94760; 80053; 80048; 82140; 83605; 85025; 85027; 87040; 87635; 73030; G0378 ×3; J0690; J2405

== ENCOUNTER → 2020-10-10 | Outpatient (CLI) | payer MEDICARE | END | disposition home or self-care (01) | LOC: RADBDWWP 10:42 | PROVIDERS: ATTEND Family Medicine | DX: Z53.9 Procedure and treatment not carried out, unspecified reason (principal) ==

== ENCOUNTER → 2020-12-02 | Outpatient (CLI) | payer MEDICARE ==
[2020-12-03 00:12] LABS: Basophils # (A) 0.04 X 10*3/uL (0.00-0.10); Basophils % (A) 0.5 %; Eosinophils # (A) 0.08 X 10*3/uL (0.04-0.35); Eosinophils % (A) 0.9 %; HCT 41.2 % (37.2-46.3); HGB 13.1 g/dL (12.0-15.0); Lymphocytes # (A) 2.04 X 10*3/uL (0.90-5.00); Lymphocytes % (A) 23.5 %; MCH 30.5 pg (27.0-32.0); MCHC 31.8 g/dL (32.0-37.0); MCV 95.8 fL (80.0-97.0); Mean Platelet Volume 10.6 fL (9.5-12.2); Monocytes # (A) 0.97 X 10*3/uL (0.20-1.00); Monocytes % (A) 11.2 %; Neutrophils % (A) 63.2 %; Platelet Count 152 X 10*3/uL (140-440); RDW 14.3 % (11.5-14.5); WBC 8.69 X 10*3/uL (4.50-10.00)
[2020-12-03 02:05] LABS: Erythrocyte Sedimentation Rate 8 mm/Hr (0-30)
[2020-12-03 03:25] LABS: ALT 18 U/L (8-44); AST 28 U/L (13-35); African American GFR (CKD) 106.9 (60.0-200.0); Albumin/Globulin Ratio 2.26 (1.60-3.17); Alkaline Phosphatase 69 U/L (41-126); C Reactive Protein <0.4 mg/dL (0.0-0.8); Calcium 9.5 mg/dL (8.7-10.3); Chloride 93 mmol/L (96-109); Globulin 1.9 g/dL (1.6-3.3); Glucose 93 mg/dL (70-110); Non-African American GFR(CKD) 92.2 (60.0-200.0); Potassium 4.6 mmol/L (3.5-5.5); Sodium 132 mmol/L (135-145); Total Bilirubin 0.3 mg/dL (0.3-1.2); Total Protein 6.2 g/dL (6.2-8.2)
== END | disposition home or self-care (01) ==
LOC: LABWHC1 15:33
PROVIDERS: ATTEND Nurse Practitioner
DX: L03.119 Cellulitis of unspecified part of limb (principal)
CPT/HCPCS: 36415; 80053; 85025; 85652; 86140; 87040

== ENCOUNTER → 2021-03-14 | Outpatient (CLI) | payer MEDICARE ==
[2021-03-14 15:24] LABS: T4, Free (Free Thyroxine) 1.61 ng/dL (0.78-2.19)
[2021-03-14 20:15] LABS: Protein, Total 6.2 g/dL (6.2-8.2)
[2021-03-14 21:02] LABS: Hemoglobin A1C 5.3 % (4.0-6.0)
--- NOTE | 2021-03-16 18:49 | CT ---
EXAMINATION TYPE: CT lumbar spine wo con DATE OF EXAM: 03/14/2021 COMPARISON: None HISTORY: 65-year-old female M48.06, Spinal stenosis with claudication TECHNIQUE: Contiguous axial scanning of the lumbar spine without IV contrast. Coronal and sagittal re constructions performed. CT DLP: 2796.90 mGycm Automated exposure control for dose reduction was used. FINDINGS: 5 mm nonobstructive right lower pole renal calculus. Additional approximately 4 nonobstructive renal calculi on the left side measuring up to 5 mm. Cholecystectomy clips. Partially visualized postsurgic al change at and below the GE junction, possible small hiatal hernia and Jennifer-en-Y gastric bypass. As these may further correlated clinically. Cholecystectomy clips. There is a markedly degenerated levoconvex scoliosis of the lumbar spine. Severe disc/endplate degene rative change especially towards the right side of concavity at L2-L3. Estimates disease. Advanced hypertrophic facet and uncovertebral joint arthropathy. The degree of curvature makes assessment difficult. No obvious malalignment is seen. Overall vertebra l body heights are preserved. Multilevel disc bulges are present such as at T12-L1 towards the right, L1-L2 centrally, L3-L4 right paracentral, L4-L5 diffuse broad-based, and L5-S1 disc osteophyte complex. This results in very variable mild spinal canal stenoses but possibly more moderate to severe at L3-L 4 and moderate at L4-L5 and L5-S1. On the right, changes result in moderate to severe neuroforaminal stenosis at L2-L3, L3-L4, and L5-S1 . On the left, changes as noted severe foraminal stenosis at L5-S1, moderate to severe at L4-L5. Possib ly severe at T10-T11 and T11-T12. IMPRESSION: 1. SEVERE DEGENERATED LEVOCONVEX SCOLIOSIS OF THE LUMBAR SPINE. 2. Variable mild spinal canal stenoses, possibly more moderate to severe at L3-L4 and moderate at L4- L5 and L5-S1. 3. Variable neural foraminal stenoses as outlined above. Narrowing appears severe on the left at T10- T11, T11-T12, and L5-S1. Moderate to severe on the left L4-L5. 4. Narrowing also appears moderate to severe on the right from L2 through S1 levels. 5. Bilateral nonobstructive renal calculi measuring up to 5 mm.
[2021-03-17 13:20] LABS: Albumin 3.82 g/dL (3.80-4.90); Gamma Globulin 0.62 g/dL (0.70-1.50)
== END | disposition home or self-care (01) ==
LOC: RADCTMAIN 13:39
PROVIDERS: ATTEND Psychiatry & Neurology Neurology
DX: M48.062 Spinal stenosis, lumbar region with neurogenic claudication (principal); M51.37 Other intervertebral disc degeneration, lumbosacral region; M99.73 Connective tissue and disc stenosis of intervertebral foramina of lumbar region
CPT/HCPCS: 36415; 72131; 82550; 82607; 82747; 83036; 84165; 84439; 84443; 85652; 86038; 86431; 86618

== ENCOUNTER → 2021-04-22 | Outpatient (CLI) | payer MEDICARE ==
--- NOTE | 2021-04-23 06:03 | CT ---
EXAMINATION TYPE: CT lumbar spine wo con DATE OF EXAM: 04/22/2021 4:52 PM COMPARISON: CT lumbar spine March 14, 2020 HISTORY: Spondylosis without myelopathy, radiculopathy CT DLP: 829 mGycm Automated exposure control for dose reduction was used. Unenhanced CT of the lumbar spine was performed. Bone and soft tissue window settings are submitted as well as coronal and sagittal reconstructions. Exam limited by patient's large body habitus and underlying scoliosis similar to prior. There are 5 l umbar type vertebra redemonstrated. Persistent levoconvex scoliosis centered at L2-L3 level. Vertebra l body heights are maintained. Severe disc space narrowing with endplate sclerosis and moderate to se loraine spurring right L1-L2 level. Moderate disc space narrowing with vacuum disc phenomenon and endpla te sclerosis right L2-L3 level. [id number] disc space narrowing with vacuum disc phenomenon a t L3-L4 level. Moderate to severe disc space narrowing and spurring left L4-L5 and L5-S1 levels with vacuum disc phenomenon at these levels. Posterior spur disc complex L5-S1 level redemonstrated. There is moderate broad disc bulge effaces the anterior thecal sac at L4-L5 level not significantly c hanged from prior. Mild facet arthropathy lower lumbar levels. Artifact sacralization is present. Moderate calcified plaque of the aorta extends into branch vessels. Persistent 4 mm nonobstructing lo wer pole right renal calculus and smaller nonobstructing calculi lower pole left kidney. Cholecystect kirill clips redemonstrated. IMPRESSION: Suboptimal study. Stable levoconvex scoliosis and moderate to severe multilevel degenerat kae changes as detailed above. Accurate disc herniation and neural foraminal narrowing is difficult.
== END | disposition home or self-care (01) ==
LOC: RADCTMAIN 16:11
PROVIDERS: ATTEND Physical Medicine & Rehabilitation
DX: M47.816 Spondylosis without myelopathy or radiculopathy, lumbar region (principal); M51.26 Other intervertebral disc displacement, lumbar region; M51.36 Other intervertebral disc degeneration, lumbar region; M41.86 Other forms of scoliosis, lumbar region
CPT/HCPCS: 72131

== ENCOUNTER 2021-06-11 22:08 | Inpatient (IN) | payer MEDICARE ==
[2021-06-11] MEDS ORDERED: SODIUM CHLORIDE 0.9% 1,000 ML IV STA (22:20)
[2021-06-11] MEDS ORDERED: IPRATROPIUM-ALBUTEROL 3 ML NEB INHALATION STA (22:20)
[2021-06-11] MEDS ORDERED: LORazepam 2 MG/ML INJ IV STA (22:20)
--- NOTE | 2021-06-11 22:24 | ED ---
SOB HPI - General Chief Complaint: Anxiety Stated Complaint: SOB,Anxiety Time Seen by Provider: 06/11/21 22:12 Source: patient, EMS, RN notes reviewed, old records reviewed Mode of arrival: EMS Limitations: no limitations - History of Present Illness Initial Comments: This is a 66-year-old female to the emergency room today. Patient presents today for evaluation regarding significant shortness of breath weakness and anxiety. Patient states she is unable to catch her breath no recent fevers no chest pain. No recent travel history sick contacts. Denying coronavirus exposure. MD Complaint: shortness of breath, cough, "asthma attack", anxiety -: days(s) Radiation: neck Severity: mild Severity scale (1-10): 4 Quality: dull Consistency: constant Improves With: nothing Worsens With: nothing Known History Of: COPD, asthma Context: recent URI Associated Symptoms: denies other symptoms Treatments Prior to Arrival: none - Related Data Home Medications Medication Instructions Recorded Confirmed Gabapentin [Neurontin] 400 mg PO TID 12/17/13 06/12/21 Montelukast [Singulair] 10 mg PO HS 12/17/13 06/12/21 busPIRone HCL [Buspar] 30 mg PO BID 12/17/13 06/12/21 lamoTRIgine [LaMICtal] 100 mg PO BID 12/17/13 06/12/21 Albuterol Sulfate [Proair Hfa] 2 puff INHALATION RT-Q6H PRN 05/07/18 06/12/21 Cyclobenzaprine [Flexeril] 10 mg PO DAILY 06/01/19 06/12/21 Levothyroxine Sodium [Synthroid] 150 mcg PO DAILY 03/29/20 06/12/21 Citalopram Hydrobromide [CeleXA] 20 mg PO DAILY 10/05/20 06/12/21 Divalproex ER [Depakote ER] 1,500 mg PO HS 10/05/20 06/12/21 clonazePAM [KlonoPIN] 0.5 mg PO BID 10/05/20 06/12/21 lisinopriL 20 mg PO DAILY 10/05/20 06/12/21 Albuterol Nebulized [Ventolin 2.5 mg INHALATION RT-Q6H PRN 06/12/21 06/12/21 Nebulized] Budesonide/Formoterol Fumarate 2 puff INHALATION RT-BID 06/12/21 06/12/21 [Symbicort 160-4.5 Mcg Inhaler] Previous Rx's Medication Instructions Recorded amLODIPine [Norvasc] 5 mg PO DAILY #30 tab 04/01/20 Allergies Allergy/AdvReac Type Severity Reaction Status Date / Time codeine Allergy Unknown Verified 06/12/21 09:16 Childhood Penicillins Allergy Rash/Hives Verified 06/12/21 09:16 Sulfa (Sulfonamide Allergy Rash/Hives Verified 06/12/21 09:16 Antibiotics) Review of Systems ROS Statement: Those systems with pertinent positive or pertinent negative responses have been documented in the HPI. ROS Other: All systems not noted in ROS Statement are negative. 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 History of Any Multi-Drug Resistant Organisms: None Reported Past Surgical History: Adenoidectomy, Section, Cholecystectomy, Hysterectomy, Tonsillectomy Additional Past Surgical History / Comment(s): EGD, colonoscopies, gastric bypass, surgery for deviated septum Past Anesthesia/Blood Transfusion Reactions: Previous Problems w/ Anesthesia Additional Past Anesthesia/Blood Transfusion Reaction / Comment(s): itching, some kind of problem after gastric bypass-not sure what happened Past Psychological History: Anxiety, Bipolar, Depression Smoking Status: Current every day smoker Past Alcohol Use History: None Reported Past Drug Use History: None Reported - Past Family History Mother Family Medical History: Congestive Heart Failure (CHF), Hypertension Father Additional Family Medical History / Comment(s): Father at the age of 45 yrs d/t having had rheumatic fever as a child and heart valve disease. General Exam Limitations: no limitations General appearance: anxious, in distress, obese Head exam: Present: atraumatic, normocephalic, normal inspection Eye exam: Present: normal appearance, PERRL, EOMI. Absent: scleral icterus, conjunctival injection, periorbital swelling ENT exam: Present: normal exam, mucous membranes moist Neck exam: Present: normal inspection. Absent: tenderness, meningismus, lymphadenopathy Respiratory exam: Present: respiratory distress, wheezes, decreased breath sounds, prolonged expiratory. Absent: rales, rhonchi, stridor Cardiovascular Exam: Present: regular rate, normal rhythm, normal heart sounds. Absent: systolic murmur, diastolic murmur, rubs, gallop, clicks GI/Abdominal exam: Present: soft, normal bowel sounds. Absent: distended, tenderness, guarding, rebound, rigid Extremities exam: Present: normal inspection, full ROM, normal capillary refill. Absent: tenderness, pedal edema, joint swelling, calf tenderness Back exam: Present: normal inspection Neurological exam: Present: alert, oriented X3, CN II-XII intact Psychiatric exam: Present: normal affect, normal mood Skin exam: Present: warm, dry, intact, normal color. Absent: rash Course Vital Signs 06/11/21 06/11/21 06/11/21 22:12 22:18 23:35 Temperature 98.3 F 97.6 F Pulse Rate 68 67 Pulse Rate [ Pulse Oximetery ] Respiratory 16 18 18 Rate Blood Pressure 129/72 132/80 Blood Pressure [Right Arm] O2 Sat by Pulse 93 L 99 Oximetry 06/11/21 06/12/21 06/12/21 23:42 00:00 02:43 Temperature Pulse Rate 64 68 67 Pulse Rate [ Pulse Oximetery ] Respiratory 17 Rate Blood Pressure 132/65 Blood Pressure [Right Arm] O2 Sat by Pulse 94 L Oximetry 06/12/21 05:55 Temperature 98.4 F Pulse Rate Pulse Rate [ 78 Pulse Oximetery ] Respiratory 19 Rate Blood Pressure Blood Pressure 159/89 [Right Arm] O2 Sat by Pulse 91 L Oximetry - Reevaluation(s) Reevaluation #1: Medical record is reviewed Patient symptoms are not improved here in the emergency department Patient informed results and questions answered Medical Decision Making - Medical Decision Making 66 female with significant shortness of breath history of COPD COPD exacerbation with anxiety and low sodium. Patient be admitted for breathing treatments and support - Lab Data Result diagrams: 06/11/21 23:38 06/12/21 09:32 Lab Results 06/11/21 06/11/21 06/11/21 Range/Units 23:38 23:38 23:38 WBC 8.8 (3.8-10.6) k/uL RBC 4.24 (3.80-5.40) m/uL Hgb 13.7 (11.4-16.0) gm/dL Hct 40.4 (34.0-46.0) % MCV 95.1 D (80.0-100.0) fL MCH 32.4 (25.0-35.0) pg MCHC 34.0 (31.0-37.0) g/dL RDW 12.3 (11.5-15.5) % Plt Count 162 (150-450) k/uL MPV 7.6 Neutrophils % 61 % Lymphocytes % 26 % Monocytes % 10 % Eosinophils % 1 % Basophils % 1 % Neutrophils # 5.3 (1.3-7.7) k/uL Lymphocytes # 2.3 (1.0-4.8) k/uL Monocytes # 0.9 (0-1.0) k/uL Eosinophils # 0.1 (0-0.7) k/uL Basophils # 0.0 (0-0.2) k/uL PT 9.6 (9.0-12.0) sec INR 0.9 (<1.2) APTT 23.9 (22.0-30.0) sec D-Dimer 0.47 (<0.60) mg/L FEU Sodium 125 L (137-145) mmol/L Potassium 4.6 (3.5-5.1) mmol/L Chloride 91 L (98-107) mmol/L Carbon Dioxide 30 (22-30) mmol/L Anion Gap 4 mmol/L BUN 21 H (7-17) mg/dL Creatinine 0.71 (0.52-1.04) mg/dL Est GFR (CKD-EPI)AfAm >90 (>60 ml/min/1.73 sqM) Est GFR (CKD-EPI)NonAf >90 (>60 ml/min/1.73 sqM) Glucose 109 H (74-99) mg/dL Plasma Lactic Acid Joel (0.7-2.0) mmol/L Calcium 9.4 (8.4-10.2) mg/dL Magnesium 1.9 (1.6-2.3) mg/dL Total Bilirubin 0.3 (0.2-1.3) mg/dL AST 32 (14-36) U/L ALT 13 (4-34) U/L Alkaline Phosphatase 65 (38-126) U/L Troponin I (0.000-0.034) ng/mL NT-Pro-B Natriuret Pep pg/mL Total Protein 6.0 L (6.3-8.2) g/dL Albumin 3.5 (3.5-5.0) g/dL 06/11/21 06/11/21 06/11/21 Range/Units 23:38 23:38 23:38 WBC (3.8-10.6) k/uL RBC (3.80-5.40) m/uL Hgb (11.4-16.0) gm/dL Hct (34.0-46.0) % MCV (80.0-100.0) fL MCH (25.0-35.0) pg MCHC (31.0-37.0) g/dL RDW (11.5-15.5) % Plt Count (150-450) k/uL MPV Neutrophils % % Lymphocytes % % Monocytes % % Eosinophils % % Basophils % % Neutrophils # (1.3-7.7) k/uL Lymphocytes # (1.0-4.8) k/uL Monocytes # (0-1.0) k/uL Eosinophils # (0-0.7) k/uL Basophils # (0-0.2) k/uL PT (9.0-12.0) sec INR (<1.2) APTT (22.0-30.0) sec D-Dimer (<0.60) mg/L FEU Sodium (137-145) mmol/L Potassium (3.5-5.1) mmol/L Chloride (98-107) mmol/L Carbon Dioxide (22-30) mmol/L Anion Gap mmol/L BUN (7-17) mg/dL Creatinine (0.52-1.04) mg/dL Est GFR (CKD-EPI)AfAm (>60 ml/min/1.73 sqM) Est GFR (CKD-EPI)NonAf (>60 ml/min/1.73 sqM) Glucose (74-99) mg/dL Plasma Lactic Acid Joel 0.6 L (0.7-2.0) mmol/L Calcium (8.4-10.2) mg/dL Magnesium (1.6-2.3) mg/dL Total Bilirubin (0.2-1.3) mg/dL AST (14-36) U/L ALT (4-34) U/L Alkaline Phosphatase (38-126) U/L Troponin I <0.012 (0.000-0.034) ng/mL NT-Pro-B Natriuret Pep 342 pg/mL Total Protein (6.3-8.2) g/dL Albumin (3.5-5.0) g/dL - EKG Data -: EKG Interpreted by Me (EKG shows rhythm 66 RI 186 QRS 114 QTc 454) - Radiology Data Radiology results: report reviewed (Chest x-rays negative for acute disease), image reviewed Disposition Clinical Impression: Acute anxiety, COPD (chronic obstructive pulmonary disease), Weakness, Acute exacerbation of chronic obstructive pulmonary disease, Hyponatremia Disposition: ADMITTED IP TO THIS HOSP Condition: Fair Is patient prescribed a controlled substance at d/c from ED?: No
--- NOTE | 2021-06-11 22:45 | XR ---
EXAMINATION TYPE: XR chest 2V DATE OF EXAM: 06/11/2021 COMPARISON: 05/28/2020 HISTORY: Short of breath TECHNIQUE: 2 views FINDINGS: Heart is enlarged. There is some atelectasis at the lung bases. There is no obvious heart f ailure. Bony thorax is intact. IMPRESSION: There is some atelectasis at the lung bases that is slightly worse than last exam. No hea rt failure seen.
[2021-06-11 23:48] LABS: Basophils % (A) 1 %; Eosinophils # (A) 0.1 k/uL (0-0.7); Eosinophils % (A) 1 %; HCT 40.4 % (34.0-46.0); HGB 13.7 gm/dL (11.4-16.0); Lymphocytes # (A) 2.3 k/uL (1.0-4.8); Lymphocytes % (A) 26 %; MCH 32.4 pg (25.0-35.0); Mean Platelet Volume 7.6; Monocytes # (A) 0.9 k/uL (0-1.0); Monocytes % (A) 10 %; Neutrophils # (A) 5.3 k/uL (1.3-7.7); Neutrophils % (A) 61 %; Platelet Count 162 k/uL (150-450); RBC 4.24 m/uL (3.80-5.40); RDW 12.3 % (11.5-15.5); WBC 8.8 k/uL (3.8-10.6)
[2021-06-11 23:50] LABS: MCV 95.1 fL (80.0-100.0)
[2021-06-12 00:04] LABS: INR 0.9 (<1.2); Partial Thromboplastin Time 23.9 sec (22.0-30.0); Prothrombin Time 9.6 sec (9.0-12.0)
[2021-06-12 00:18] LABS: ALT 13 U/L (4-34); AST 32 U/L (14-36); African American GFR (CKD) >90 (>60 ml/min/1.73 sqM); Albumin 3.5 g/dL (3.5-5.0); Alkaline Phosphatase 65 U/L (38-126); Anion Gap 4 mmol/L; Blood Urea Nitrogen 21 mg/dL (7-17); Calcium 9.4 mg/dL (8.4-10.2); Carbon Dioxide 30 mmol/L (22-30); Chloride 91 mmol/L (98-107); Glucose 109 mg/dL (74-99); Magnesium 1.9 mg/dL (1.6-2.3); Non-African American GFR(CKD) >90 (>60 ml/min/1.73 sqM); Potassium 4.6 mmol/L (3.5-5.1); Sodium 125 mmol/L (137-145); Total Bilirubin 0.3 mg/dL (0.2-1.3)
[2021-06-12] MEDS ORDERED: ONDANSETRON 4 MG/2 ML VIAL IVP PRN (01:25)
[2021-06-12] MEDS ORDERED: MORPHINE SULFATE 4 MG/ML SYRINGE IV PRN (01:25)
[2021-06-12] MEDS ORDERED: NALOXONE 0.4 MG/ML 1 ML VIAL IV PRN (01:25)
[2021-06-12] MEDS ORDERED: methylPREDNISolone SOD SUCCI 125 MG/2 ML VIAL IV STA (01:25)
[2021-06-12] MEDS: SODIUM CHLORIDE 0.9% 1,000 ML IV SCH ×2 (02:37→13:21)
[2021-06-12 07:52] LABS: Glucose,Whole Blood 145 mg/dL (75-99)
[2021-06-12] MEDS: ALBUTEROL NEBULIZED 2.5 MG/3 ML INHALATION SCH ×2 (08:24→12:03)
[2021-06-12 08:45] VITALS: BP 161/88; RESP 22; TEMP 98.2
[2021-06-12] MEDS: methylPREDNISolone SOD SUCCI 125 MG/2 ML VIAL IV SCH ×2 (10:39→14:27)
[2021-06-12 11:56] LABS: Glucose,Whole Blood 163 mg/dL (75-99)
[2021-06-12 12:05] VITALS: PULSE 88
[2021-06-12] MEDS ORDERED: ALBUTEROL NEBULIZED 2.5 MG/3 ML INHALATION PRN (12:27)
[2021-06-12] MEDS ORDERED: ALBUTEROL HFA INHALER INHALATION PRN (12:27)
[2021-06-12] MEDS ORDERED: INSULIN ASPART (NovoLOG) 100 UNIT/ML VIAL SQ SCH (12:30)
--- NOTE | 2021-06-12 12:40 | P.HPIM ---
History of Present Illness H&P Date: 06/12/21 This is a pleasant 66-year-old female who presented to yesterday after experiencing shortness of breath at home that was unresolved with using her home nebulizer . Patient was a poor historian during my examination, appears anxious, she is unsure exactly why she got admitted, she was hoping to be treated and sent home from the ER. Patient has a long-standing history of COPD, maintained on nasal cannula at night, is a current smoker 2+ packs per day. She was at home with her who is her primary caregiver. Patient was very anxious at the time of my examination which seemed to exacerbate her overall status. She would like to return home today. Patient follows closely with Dr. Wheeler in the office as well as Dr. Brannon for pulmonary services, who is on consult. Chest xray in the [facility] shows atelectasis at lung bases slightly worse than last exam. There is no heart failure seen. Past history significant for asthma, COPD, diabetes mellitus type 2 which patient states that since her gastric bypass is not a problem for her, fibromyalgia, GERD, hypertension, cardiac murmur, IBS osteoarthritis, pneumonia, pulmonary embolism, skin disorder, thyroid disorder, anxiety and depression, bipolar, panic attacks. Patient states that she was recently started on a water pill, for some lower extremity edema however this has been causing low sodium so she has only been taking the pill twice a day. Labs from admission show a unremarkable blood count panel, sodium of 125, chloride 91, potassium 4.6, BUN 29, creatinine 0.71, lactic acid 0.6. Troponin is negative, BNP 342, glucose elevated in the 140s to 160s. Covid PCR is not detected. Vital signs temperature 98.2, heart rate 88, respirations the 20s, blood pressure 161/88 and she is 95% on 2 L nasal cannula. Patient was treated with a dose of IV steroids in the [facility], she did receive a 1 L bolus was given a dose of IV Ativan and admitted to the hospital for COPD and hyponatremia. REVIEW OF SYSTEMS: CONSTITUTIONAL: No fever, no malaise, no fatigue. HEENT: No recent visual problems or hearing problems. Denied any sore throat. CARDIOVASCULAR: No chest pain, orthopnea, PND, no palpitations, no syncope. PULMONARY: Shortness of breath with exertion, chronic, orthopnea; sleeps sitting upright GASTROINTESTINAL: No diarrhea, no nausea, no vomiting, no abdominal pain. NEUROLOGICAL: No headaches, no weakness, no numbness. HEMATOLOGICAL: Denies any bleeding or petechiae. GENITOURINARY: Denies any burning micturition, frequency, or urgency. MUSCULOSKELETAL/RHEUMATOLOGICAL: Denies any joint pain, swelling, or any muscle pain. ENDOCRINE: Denies any polyuria or polydipsia. The rest of the 14-point review of systems is negative. PHYSICAL EXAMINATION: GENERAL: The patient is alert and oriented x3, not in any acute distress. Well developed, well nourished. Pt appears anxious HEENT: Pupils are round and equally reacting to light. EOMI. No scleral icterus. No conjunctival pallor. Normocephalic, atraumatic. No pharyngeal erythema. No thyromegaly. CARDIOVASCULAR: S1 and S2 present. No murmurs, rubs, or gallops. PULMONARY: Chest is clear to auscultation, no wheezing or crackles. ABDOMEN: Soft, nontender, nondistended, normoactive bowel sounds. No palpable organomegaly. MUSCULOSKELETAL: No joint swelling or deformity. EXTREMITIES: No cyanosis, clubbing, +1 non pitting peripheral edema NEUROLOGICAL: Gross neurological examination did not reveal any focal deficits. SKIN: No rashes. Assessment and plan Assessment Hyponatremia secondary to overdiuresis with chlorthalidone, would recommend holding until patient's sodium is within normal limits, at that time if patient does require diuretics we recommend Lasix as it will not affect the sodium as much as the chlorthalidone. COPD, maintained on home oxygen, not in acute exacerbation Generalized anxiety disorder with panic attacks, on Klonopin Hypertension Diabetes mellitus type 2, patient states not an issue since gastric bypass, monitor blood sugars Peripheral edema, no known history of CHF, most recent echo in 2020 shows an EF of 60-65%, this is probably related to amlodipine Bipolar disorder Medical debility requiring at home caregiver History of asthma History of gastroesophageal reflux disease Remote history of PE History of hypothyroidism Chronic nicotine use; 2 packs per day Obese Plan Hold Chlorthalidone Recheck sodium in 2-3 days Pulmonary consult Wean oxygen Resume home medications Discharge home if cleared by pulmonary Past Medical History Past Medical History: Asthma, COPD, Diabetes Mellitus, Fibromyalgia, GERD/Reflux, Hypertension, Osteoarthritis (OA), Pneumonia, Pulmonary Embolus (PE), Skin Disorder, Thyroid Disorder Additional Past Medical History / Comment(s): Cervical disc disease/stenosis, scoliosis, recently having numbness/tingling L side of face/neck, recently saw helper shear operator for L hemidiaphragmatic elevation-pt states she was told this was probably genetic, recently bronchitis and past bronchitis, pt states recent med change (water pill) d/t electrolyte problem/kidney function being affected, pt states she has had pulmonary emboli, past bilateral lower extremity cellulitis, edema lower extremities, IBS, hemorrhoids, benign colon polyps, sinus problems, UTIs, bacteremia/sepsis, cardiac murmur, past L ankle and L wrist fractures. History of Any Multi-Drug Resistant Organisms: None Reported Past Surgical History: Adenoidectomy, Section, Cholecystectomy, Hysterectomy, Tonsillectomy Additional Past Surgical History / Comment(s): EGD, colonoscopies, gastric bypass, surgery for deviated septum Past Anesthesia/Blood Transfusion Reactions: Previous Problems w/ Anesthesia Additional Past Anesthesia/Blood Transfusion Reaction / Comment(s): itching, some kind of problem after gastric bypass-not sure what happened Past Psychological History: Anxiety, Bipolar, Depression Smoking Status: Current every day smoker Past Alcohol Use History: None Reported Past Drug Use History: None Reported - Past Family History Mother Family Medical History: Congestive Heart Failure (CHF), Hypertension Father Additional Family Medical History / Comment(s): Father at the age of 45 yrs d/t having had rheumatic fever as a child and heart valve disease. Medications and Allergies Home Medications Medication Instructions Recorded Confirmed Type Gabapentin [Neurontin] 400 mg PO TID 12/17/13 06/12/21 History Montelukast [Singulair] 10 mg PO HS 12/17/13 06/12/21 History busPIRone HCL [Buspar] 30 mg PO BID 12/17/13 06/12/21 History lamoTRIgine [LaMICtal] 100 mg PO BID 12/17/13 06/12/21 History Albuterol Sulfate [Proair Hfa] 2 puff INHALATION RT-Q6H PRN 05/07/18 06/12/21 History Cyclobenzaprine [Flexeril] 10 mg PO DAILY 06/01/19 06/12/21 History Levothyroxine Sodium [Synthroid] 150 mcg PO DAILY 03/29/20 06/12/21 History amLODIPine [Norvasc] 5 mg PO DAILY #30 tab 04/01/20 06/12/21 Rx Citalopram Hydrobromide [CeleXA] 20 mg PO DAILY 10/05/20 06/12/21 History Divalproex ER [Depakote ER] 1,500 mg PO HS 10/05/20 06/12/21 History clonazePAM [KlonoPIN] 0.5 mg PO BID 10/05/20 06/12/21 History lisinopriL 20 mg PO DAILY 10/05/20 06/12/21 History Albuterol Nebulized [Ventolin 2.5 mg INHALATION RT-Q6H PRN 06/12/21 06/12/21 History Nebulized] Budesonide/Formoterol Fumarate 2 puff INHALATION RT-BID 06/12/21 06/12/21 History [Symbicort 160-4.5 Mcg Inhaler] Chlorthalidone 25 mg PO MOFR 06/12/21 06/12/21 History Allergies Allergy/AdvReac Type Severity Reaction Status Date / Time codeine Allergy Unknown Verified 06/12/21 09:16 Childhood Penicillins Allergy Rash/Hives Verified 06/12/21 09:16 Sulfa (Sulfonamide Allergy Rash/Hives Verified 06/12/21 09:16 Antibiotics) Physical Exam Vitals: Vital Signs Temp Pulse Pulse Resp BP BP Pulse Ox 06/12/21 12:16 88 06/12/21 12:03 88 06/12/21 08:40 80 06/12/21 08:24 84 06/12/21 07:00 98.2 F 78 22 161/88 95 06/12/21 05:55 98.4 F 78 19 159/89 91 L 06/12/21 02:43 67 17 132/65 94 L 06/12/21 00:00 68 06/11/21 23:42 64 06/11/21 23:35 97.6 F 67 18 132/80 99 06/11/21 22:18 18 06/11/21 22:12 98.3 F 68 16 129/72 93 L Intake and Output 06/11/21 06/12/21 06/12/21 22:59 06:59 14:59 Output Total 600 Balance -600 Output: Urine 600 Other: Weight 113.398 kg Results CBC & Chem 7: 06/11/21 23:38 06/12/21 09:32 Labs: Abnormal Lab Results - Last 24 Hours (Table) 06/11/21 06/11/21 06/12/21 Range/Units 23:38 23:38 07:51 Sodium 125 L (137-145) mmol/L Chloride 91 L (98-107) mmol/L BUN 21 H (7-17) mg/dL Glucose 109 H (74-99) mg/dL POC Glucose (mg/dL) 145 H (75-99) mg/dL Plasma Lactic Acid Joel 0.6 L (0.7-2.0) mmol/L Total Protein 6.0 L (6.3-8.2) g/dL 06/12/21 06/12/21 Range/Units 09:32 11:54 Sodium 127 L (137-145) mmol/L Chloride (98-107) mmol/L BUN (7-17) mg/dL Glucose (74-99) mg/dL POC Glucose (mg/dL) 163 H (75-99) mg/dL Plasma Lactic Acid Joel (0.7-2.0) mmol/L Total Protein (6.3-8.2) g/dL Assessment and Plan Time with Patient: Greater than 30
--- NOTE | 2021-06-12 14:14 | P.CNPUL ---
History of Present Illness Consult date: 06/12/21 Requesting physician: Megan Esparza Reason for consult: dyspnea, COPD Chief complaint: Anxiety, shortness of breath History of present illness: This is a very pleasant 66-year-old female patient who follows with Dr. Wheeler as her primary care provider. She has a history of diabetes mellitus, fibr omyalgia, GERD, hypertension, hypothyroidism. She was has a significant history of anxiety and bipolar disorder. She has chronic and ongoing tobacco dependence. She's been seen in our office for her COPD. She has nebulized treatments and is on WIxella, Singulair, pro-air. Presented to the emergency room last night due to shortness of breath that she states was related to her anxiety and somewhat of a panic attack. She states she used her nebulizer which made her more anxious. She does state she has been without some of her antianxiety medications. Presently she is sitting up in bed. Awake and alert in no acute distress. Still with some anxiety. She denies any worsening shortness of breath, cough or congestion. No fever, chills or night sweats. X- ray reveals some atelectasis at the lung bases otherwise lungs are clear. White count 8.8. Hemoglobin 13.7. D-dimer 0.47. Sodium 127. Potassium 4.6. Creatinine 0.71. Glucose 163. Troponin negative. ProBNP 342. Coronary virus by PCR not detected. She was resumed on Symbicort, nebulized treatments, Singulair, IV Solu-Medrol. 0.9NS at 100 ML's per hour. Review of Systems REVIEW OF SYSTEMS: CONSTITUTIONAL: Denies any recent significant weight loss or weight gain. EYES: Denies change in vision. EARS, NOSE, MOUTH, THROAT: Denies headaches, denies sore throat. CARDIOVASCULAR: Denies chest pain, palpitations or syncopal episodes. RESPIRATORY: Positive for shortness of breath, no cough, congestion or hemoptysis. GASTROINTESTINAL: Denies change in appetite, denies abdominal pain GENITOURINARY: Denies hematuria, denies infections. MUSKULOSKELETAL: Denies pain, denies swelling. INTEGUMENTARY: Denies rash, denies eczema. NEUROLOGICAL: Denies recent memory loss, no recent seizure activity. PSYCHIATRIC: Positive for anxiety, denies depression. HEMATOLOGIC/LYMPHATIC: Denies anemia, denies enlarged lymph nodes. Past Medical History Past Medical History: Asthma, COPD, Diabetes Mellitus, Fibromyalgia, GERD/Reflux, Hypertension, Osteoarthritis (OA), Pneumonia, Pulmonary Embolus (PE), Skin Disorder, Thyroid Disorder Additional Past Medical History / Comment(s): Cervical disc disease/stenosis, scoliosis, recently having numbness/tingling L side of face/neck, recently saw stock receiver for L hemidiaphragmatic elevation-pt states she was told this was probably genetic, recently bronchitis and past bronchitis, pt states recent med change (water pill) d/t electrolyte problem/kidney function being affected, pt states she has had pulmonary emboli, past bilateral lower extremity cellulitis, edema lower extremities, IBS, hemorrhoids, benign colon polyps, sinus problems, UTIs, bacteremia/sepsis, cardiac murmur, past L ankle and L wrist fractures. History of Any Multi-Drug Resistant Organisms: None Reported Past Surgical History: Adenoidectomy, Section, Cholecystectomy, Hysterectomy, Tonsillectomy Additional Past Surgical History / Comment(s): EGD, colonoscopies, gastric bypass, surgery for deviated septum Past Anesthesia/Blood Transfusion Reactions: Previous Problems w/ Anesthesia Additional Past Anesthesia/Blood Transfusion Reaction / Comment(s): itching, some kind of problem after gastric bypass-not sure what happened Past Psychological History: Anxiety, Bipolar, Depression Smoking Status: Current every day smoker Past Alcohol Use History: None Reported Past Drug Use History: None Reported - Past Family History Mother Family Medical History: Congestive Heart Failure (CHF), Hypertension Father Additional Family Medical History / Comment(s): Father at the age of 45 yrs d/t having had rheumatic fever as a child and heart valve disease. Medications and Allergies Home Medications Medication Instructions Recorded Confirmed Type Gabapentin [Neurontin] 400 mg PO TID 12/17/13 06/12/21 History Montelukast [Singulair] 10 mg PO HS 12/17/13 06/12/21 History busPIRone HCL [Buspar] 30 mg PO BID 12/17/13 06/12/21 History lamoTRIgine [LaMICtal] 100 mg PO BID 12/17/13 06/12/21 History Albuterol Sulfate [Proair Hfa] 2 puff INHALATION RT-Q6H PRN 05/07/18 06/12/21 History Cyclobenzaprine [Flexeril] 10 mg PO DAILY 06/01/19 06/12/21 History Levothyroxine Sodium [Synthroid] 150 mcg PO DAILY 03/29/20 06/12/21 History amLODIPine [Norvasc] 5 mg PO DAILY #30 tab 04/01/20 06/12/21 Rx Citalopram Hydrobromide [CeleXA] 20 mg PO DAILY 10/05/20 06/12/21 History Divalproex ER [Depakote ER] 1,500 mg PO HS 10/05/20 06/12/21 History clonazePAM [KlonoPIN] 0.5 mg PO BID 10/05/20 06/12/21 History lisinopriL 20 mg PO DAILY 10/05/20 06/12/21 History Albuterol Nebulized [Ventolin 2.5 mg INHALATION RT-Q6H PRN 06/12/21 06/12/21 History Nebulized] Budesonide/Formoterol Fumarate 2 puff INHALATION RT-BID 06/12/21 06/12/21 History [Symbicort 160-4.5 Mcg Inhaler] Allergies Allergy/AdvReac Type Severity Reaction Status Date / Time codeine Allergy Unknown Verified 06/12/21 09:16 Childhood Penicillins Allergy Rash/Hives Verified 06/12/21 09:16 Sulfa (Sulfonamide Allergy Rash/Hives Verified 06/12/21 09:16 Antibiotics) Physical Exam Vitals: Vital Signs Temp Pulse Pulse Resp BP BP Pulse Ox 06/12/21 12:16 88 06/12/21 12:03 88 06/12/21 08:40 80 06/12/21 08:24 84 06/12/21 07:00 98.2 F 78 22 161/88 95 06/12/21 05:55 98.4 F 78 19 159/89 91 L 06/12/21 02:43 67 17 132/65 94 L 06/12/21 00:00 68 06/11/21 23:42 64 06/11/21 23:35 97.6 F 67 18 132/80 99 06/11/21 22:18 18 06/11/21 22:12 98.3 F 68 16 129/72 93 L Intake and Output 06/11/21 06/12/21 06/12/21 22:59 06:59 14:59 Output Total 600 Balance -600 Output: Urine 600 Other: Weight 113.398 kg 113.398 kg GENERAL EXAM: Alert, pleasant 66-year-old female patient, on 2 L nasal cannula, comfortable in no apparent distress. HEAD: Normocephalic. EYES: Normal reaction of pupils, equal size. NOSE: Clear with pink turbinates. THROAT: No erythema or exudates. NECK: No masses, no JVD. CHEST: No chest wall deformity. LUNGS: Equal air entry with no crackles, wheeze, rhonchi or dullness. CVS: S1 and S2 normal with no audible murmur, regular rhythm. ABDOMEN: No hepatosplenomegaly, normal bowel sounds, no guarding or rigidity. SPINE: No scoliosis or deformity SKIN: No rashes CENTRAL NERVOUS SYSTEM: No focal deficits, tone is normal in all 4 extremities. EXTREMITIES: There is no peripheral edema. No clubbing, no cyanosis. Peripheral pulses are intact. Results - Laboratory Findings CBC and BMP: 06/11/21 23:38 06/12/21 09:32 PT/INR, D-dimer PT 9.6 sec (9.0-12.0) 06/11/21 23:38 INR 0.9 (<1.2) 06/11/21 23:38 D-Dimer 0.47 mg/L FEU (<0.60) 06/11/21 23:38 Abnormal lab findings: Abnormal Labs 06/11/21 06/11/21 06/12/21 23:38 23:38 07:51 Sodium 125 L Chloride 91 L BUN 21 H Glucose 109 H POC Glucose (mg/dL) 145 H Plasma Lactic Acid Joel 0.6 L Total Protein 6.0 L 06/12/21 06/12/21 09:32 11:54 Sodium 127 L Chloride BUN Glucose POC Glucose (mg/dL) 163 H Plasma Lactic Acid Joel Total Protein - Diagnostic Findings Chest x-ray: image reviewed Assessment and Plan Assessment: 1 Shortness of breath secondary to anxiety and panic disorder 2 Acute exacerbation of chronic obstructive pulmonary disease secondary to above 3 History of bipolar disorder 4 History of anxiety 5 Chronic and ongoing tobacco dependence. 6 Diabetes Morgan 7 5 Ced 8 Hypertension 9 Hypothyroidism 10 Hyponatremia Plan: The patient was seen and evaluated by Dr. Brannon The patient admits her shortness of breath was secondary to her anxiety Feeling better and back to her baseline today Cleared for discharge once cleared by medicine Continue her home pulmonary medications No need for prednisone taper as this may really increase her anxiety She'll follow-up with her PCP in one week Follow-up as scheduled in our office with Dr. Clovis Nance, the cosigning physician, performed a history & physical examination of the patient. Lungs sounds are clear. Maintaining good O2 saturations in the 90s on 2 L/m per nasal cannula. I discussed the assessment and plan of care with my nurse practitioner, Shanice Mcmillan. I attest to the above consultation as dictated by her. Time with Patient: Greater than 30
[2021-06-12] MEDS ORDERED: GABAPENTIN 400 MG CAP PO SCH (16:00)
[2021-06-12] MEDS ORDERED: SYMBICORT 160-4.5 MCG INHALER INHALATION SCH (20:00)
[2021-06-12] MEDS ORDERED: lamoTRIgine 100 MG TAB PO SCH (21:00)
[2021-06-12] MEDS ORDERED: DIVALPROEX ER 500 MG TAB.ER.24H PO SCH (21:00)
[2021-06-12] MEDS ORDERED: busPIRone HCl 10 MG TAB PO SCH (21:00)
[2021-06-12] MEDS ORDERED: MONTELUKAST 10 MG TAB PO SCH (21:00)
[2021-06-12] MEDS ORDERED: clonazePAM 0.5 MG TAB PO SCH (21:00)
[2021-06-13] MEDS ORDERED: LEVOTHYROXINE 75 MCG TAB PO SCH (06:30)
[2021-06-13] MEDS ORDERED: amLODIPine 5 MG TAB PO SCH (09:00)
[2021-06-13] MEDS ORDERED: lisinopriL 20 MG TAB PO SCH (09:00)
[2021-06-13] MEDS ORDERED: CITALOPRAM HYDROBROMIDE 20 MG TAB PO SCH (09:00)
[2021-06-13] MEDS ORDERED: CYCLOBENZAPRINE 10 MG TAB PO SCH (09:00)
--- NOTE | 2021-06-15 22:02 | P.DS ---
Providers Date of admission: 06/12/21 01:25 Attending physician: Megan Esparza Consults: 06/12/21 01:25 Consult Physician Routine Consulting Provider: Shaw Brannon Consult Reason/Comments: known Do you want consulting provider notified?: Yes Primary care physician: Andrzej Wheeler Hospital Course: Final Diagnosis Hyponatremia secondary to overdiuresis with chlorthalidone COPD, maintained on home oxygen, not in acute exacerbation Generalized anxiety disorder with panic attacks, on Klonopin Hypertension Diabetes mellitus type 2, patient states not an issue since gastric bypass, monitor blood sugars Peripheral edema, no known history of CHF, most recent echo in 2019 shows an EF of 60-65%, this is probably related to amlodipine Bipolar disorder Medical debility requiring at home caregiver History of asthma History of gastroesophageal reflux disease Remote history of PE History of hypothyroidism Chronic nicotine use; 2 packs per day Obese Discharge Disposition Patients son is at the bedside, patient and son updated on plan of care, and patient would like to be discharged home today. Would recommend holding chlorthalidone until patient's sodium is within normal limits, at that time if patient does require diuretics we recommend Lasix as it will not affect the sodium as much as the chlorthalidone. Script is given for repeat BMP in 2-3 days and to follow up with PCP. Recommend and discussed smoking cessation. Please H & P for additional information. Thank you for allowing us to participate in the care of this patient. Patient Condition at Discharge: Fair Plan - Discharge Summary New Discharge Prescriptions: Continue lamoTRIgine [LaMICtal] 100 mg PO BID busPIRone HCL [Buspar] 30 mg PO BID Montelukast [Singulair] 10 mg PO HS Gabapentin [Neurontin] 400 mg PO TID Albuterol Sulfate [Proair Hfa] 2 puff INHALATION RT-Q6H PRN PRN Reason: Shortness Of Breath Cyclobenzaprine [Flexeril] 10 mg PO DAILY Levothyroxine Sodium [Synthroid] 150 mcg PO DAILY amLODIPine [Norvasc] 5 mg PO DAILY #30 tab Citalopram Hydrobromide [CeleXA] 20 mg PO DAILY Divalproex ER [Depakote ER] 1,500 mg PO HS Albuterol Nebulized [Ventolin Nebulized] 2.5 mg INHALATION RT-Q6H PRN PRN Reason: Shortness Of Breath lisinopriL 20 mg PO DAILY clonazePAM [KlonoPIN] 0.5 mg PO BID Budesonide/Formoterol Fumarate [Symbicort 160-4.5 Mcg Inhaler] 2 puff INHALATION RT-BID Discontinued Chlorthalidone 25 mg PO MOFR Discharge Medication List Gabapentin [Neurontin] 400 mg PO TID 12/17/13 [History] Montelukast [Singulair] 10 mg PO HS 12/17/13 [History] busPIRone HCL [Buspar] 30 mg PO BID 12/17/13 [History] lamoTRIgine [LaMICtal] 100 mg PO BID 12/17/13 [History] Albuterol Sulfate [Proair Hfa] 2 puff INHALATION RT-Q6H PRN 05/07/18 [History] Cyclobenzaprine [Flexeril] 10 mg PO DAILY 06/01/19 [History] Levothyroxine Sodium [Synthroid] 150 mcg PO DAILY 03/29/20 [History] amLODIPine [Norvasc] 5 mg PO DAILY #30 tab 04/01/20 [Rx] Citalopram Hydrobromide [CeleXA] 20 mg PO DAILY 10/05/20 [History] Divalproex ER [Depakote ER] 1,500 mg PO HS 10/05/20 [History] clonazePAM [KlonoPIN] 0.5 mg PO BID 10/05/20 [History] lisinopriL 20 mg PO DAILY 10/05/20 [History] Albuterol Nebulized [Ventolin Nebulized] 2.5 mg INHALATION RT-Q6H PRN 06/12/21 [History] Budesonide/Formoterol Fumarate [Symbicort 160-4.5 Mcg Inhaler] 2 puff INHALATION RT-BID 06/12/21 [History] Follow up Appointment(s)/Referral(s): Andrzej Wheeler MD [Primary Care Provider] - 1-2 days Shaw Brannon DO [Doctor of Osteopathic Medicine] - 1 Week Ambulatory/Diagnostic Orders: Basic Metabolic Panel [LAB.AMB] Time Frame: 2 Days, Location: None Selected Patient Instructions/Handouts: Generalized Anxiety Disorder (ED) Discharge Disposition: HOME SELF-CARE
== END 2021-06-12 16:13 | disposition home or self-care (01) | DRG 191 ==
LOC: EC 22:08 → 6NMEDSUR 06-12 01:25
PROVIDERS: ADMIT Hospitalist; ATTEND Hospitalist
DX: J44.1 Chronic obstructive pulmonary disease with (acute) exacerbation (principal); E87.1 Hypo-osmolality and hyponatremia; J98.11 Atelectasis; Z68.42 Body mass index [BMI] 45.0-49.9, adult; F41.0 Panic disorder [episodic paroxysmal anxiety]; E03.9 Hypothyroidism, unspecified; Z20.822 Contact with and (suspected) exposure to COVID-19; E11.9 Type 2 diabetes mellitus without complications; T50.1X5A Adverse effect of loop [high-ceiling] diuretics, initial encounter; K21.9 Gastro-esophageal reflux disease without esophagitis; E66.9 Obesity, unspecified; F17.210 Nicotine dependence, cigarettes, uncomplicated; F31.9 Bipolar disorder, unspecified; I10 Essential (primary) hypertension; F41.1 Generalized anxiety disorder; M50.30 Other cervical disc degeneration, unspecified cervical region; K58.9 Irritable bowel syndrome, unspecified; M48.02 Spinal stenosis, cervical region; M41.9 Scoliosis, unspecified; M79.7 Fibromyalgia; Z79.51 Long term (current) use of inhaled steroids; Z79.890 Hormone replacement therapy; X58.XXXA Exposure to other specified factors, initial encounter; Z79.899 Other long term (current) drug therapy; Z86.711 Personal history of pulmonary embolism; Z87.19 Personal history of other diseases of the digestive system; Z98.84 Bariatric surgery status; Z87.81 Personal history of (healed) traumatic fracture; Z90.710 Acquired absence of both cervix and uterus; Z99.81 Dependence on supplemental oxygen; Z87.440 Personal history of urinary (tract) infections; Z88.5 Allergy status to narcotic agent; Z88.0 Allergy status to penicillin; Z88.2 Allergy status to sulfonamides; Z87.01 Personal history of pneumonia (recurrent); Z90.49 Acquired absence of other specified parts of digestive tract
CPT/HCPCS: 36415; 71046; 80053; 83605; 83735; 83880; 84295; 84484; 85025; 85379; 85610; 85730; 87635; 93005; 94640; 96361; 96374; 99285

== ENCOUNTER → 2021-08-08 | Outpatient (CLI) | payer MEDICARE | END | disposition home or self-care (01) | LOC: LABWHC1 14:21 | PROVIDERS: ATTEND Family Medicine | DX: Z53.9 Procedure and treatment not carried out, unspecified reason (principal) ==

== ENCOUNTER 2021-09-01 22:23 | Emergency (ER) | payer MEDICARE ==
[2021-09-01 22:50] VITALS: RESP 16; TEMP 98.8
[2021-09-01] MEDS ORDERED: MORPHINE SULFATE 4 MG/ML SYRINGE IM STA (23:41)
--- NOTE | 2021-09-01 23:55 | XR ---
EXAMINATION TYPE: XR ankle complete RT DATE OF EXAM: 09/01/2021 COMPARISON: NONE HISTORY: Pain TECHNIQUE: 3 views FINDINGS: There is transverse fracture of the medial and lateral malleolus. There is no significant d isplacement. There is soft tissue swelling. Fractures do not appear acute. There is some minimal call us formation. There is plantar calcaneal spurring. IMPRESSION: Healing bimalleolar fracture of the ankle. No acute fracture seen. Plantar calcaneal spur ring.
--- NOTE | 2021-09-02 01:15 | XR ---
EXAMINATION TYPE: XR Hip RT and AP Pelvis DATE OF EXAM: 09/02/2021 COMPARISON: 12/17/2013 HISTORY: Leg pain TECHNIQUE: 3 views FINDINGS: Pelvic ring appears intact. Proximal right femur and hip joint appear intact. There is no h ip dysplasia. There is no evidence of a fracture. Sacroiliac joints are intact. IMPRESSION: Negative pelvis and right hip exam. No fracture. No change.
--- NOTE | 2021-09-02 02:55 | ED ---
Lower Extremity Injury HPI - General Chief Complaint: Extremity Injury, Lower Stated Complaint: Rt Ankle Fracture Time Seen by Provider: 09/01/21 22:37 Source: EMS, Caregiver Mode of arrival: EMS - History of Present Illness Initial Comments: This patient is a 66-year-old woman who presents with complaint of right leg pain. The patient states that she had been doing physical therapy and then fallen. She is not able to state exactly when the fall occurred. She states that the custodial personnel sent her over as she was not able to bear weight on her leg. The patient is denying other injuries. She denies pain in the head, neck, back or chest. MD Complaint: fall -: unknown Type of Injury: unknown Place: SN[facility] Improves With: immobilization Worsens With: weight bearing Context: fall - Related Data Home Medications Medication Instructions Recorded Confirmed Gabapentin [Neurontin] 800 mg PO BID 12/17/13 08/09/21 Montelukast [Singulair] 10 mg PO HS 12/17/13 08/09/21 busPIRone HCL [Buspar] 30 mg PO BID 12/17/13 08/09/21 Albuterol Sulfate [Proair Hfa] 2 puff INHALATION RT-Q6H PRN 05/07/18 08/09/21 Levothyroxine Sodium [Synthroid] 150 mcg PO DAILY 03/29/20 08/09/21 Citalopram Hydrobromide [CeleXA] 20 mg PO DAILY 10/05/20 08/09/21 Divalproex ER [Depakote ER] 1,500 mg PO HS 10/05/20 08/09/21 lisinopriL 20 mg PO DAILY 10/05/20 08/09/21 Albuterol Nebulized [Ventolin 2.5 mg INHALATION RT-TID 06/12/21 08/09/21 Nebulized] Budesonide/Formoterol Fumarate 2 puff INHALATION RT-BID 06/12/21 08/09/21 [Symbicort 160-4.5 Mcg Inhaler] Previous Rx's Medication Instructions Recorded amLODIPine [Norvasc] 5 mg PO DAILY #30 tab 04/01/20 Cephalexin [Keflex] 500 mg PO Q6HR 10 Days #40 cap 08/13/21 Enoxaparin [Lovenox] 60 mg SQ DAILY each 08/13/21 Famotidine [Pepcid] 20 mg PO BID tab 08/13/21 Gabapentin [Neurontin] 300 mg PO BID #6 cap 08/13/21 Nicotine 14Mg/24Hr Patch [Habitrol] 1 patch TRANSDERM DAILY #30 patch 08/13/21 Nystatin 100,000 Unit/gm Powd 1 applic TOPICAL BID 08/13/21 [Mycostatin Powder] clonazePAM [KlonoPIN] 0.5 mg PO BID #6 tab 08/13/21 lamoTRIgine [LaMICtal] 100 mg PO BID #6 tab 08/13/21 Allergies Allergy/AdvReac Type Severity Reaction Status Date / Time codeine Allergy Unknown Verified 08/09/21 19:19 Childhood Penicillins Allergy Rash/Hives Verified 08/09/21 19:19 Sulfa (Sulfonamide Allergy Rash/Hives Verified 08/09/21 19:19 Antibiotics) Review of Systems ROS Statement: Those systems with pertinent positive or pertinent negative responses have been documented in the HPI. ROS Other: All systems not noted in ROS Statement are negative. Constitutional: Denies: weakness Respiratory: Denies: dyspnea Cardiovascular: Denies: chest pain Gastrointestinal: Denies: abdominal pain Musculoskeletal: Reports: as per HPI, arthralgia (Right ankle). Denies: back pain Neurological: Denies: headache, weakness Past Medical History Past Medical History: Asthma, COPD, Diabetes Mellitus, Fibromyalgia, GERD/Reflux, Hypertension, Osteoarthritis (OA), Pneumonia, Pulmonary Embolus (PE), Skin Disorder, Thyroid Disorder Additional Past Medical History / Comment(s): Cervical disc disease/stenosis, scoliosis, recently having numbness/tingling L side of face/neck, recently saw resident medical officer for L hemidiaphragmatic elevation-pt states she was told this was probably genetic, recently bronchitis and past bronchitis, pt states recent med change (water pill) d/t electrolyte problem/kidney function being affected, pt states she has had pulmonary emboli, past bilateral lower extremity cellulitis, edema lower extremities, IBS, hemorrhoids, benign colon polyps, sinus problems, UTIs, bacteremia/sepsis, cardiac murmur, past L ankle and L wrist fractures. History of Any Multi-Drug Resistant Organisms: None Reported Past Surgical History: Adenoidectomy, Section, Cholecystectomy, Hysterectomy, Tonsillectomy Additional Past Surgical History / Comment(s): EGD, colonoscopies, gastric bypass, surgery for deviated septum Past Anesthesia/Blood Transfusion Reactions: Previous Problems w/ Anesthesia Additional Past Anesthesia/Blood Transfusion Reaction / Comment(s): itching, some kind of problem after gastric bypass-not sure what happened Past Psychological History: Anxiety, Bipolar, Depression Smoking Status: Current every day smoker - Past Family History Mother Family Medical History: Congestive Heart Failure (CHF), Hypertension Father Additional Family Medical History / Comment(s): Father at the age of 45 yrs d/t having had rheumatic fever as a child and heart valve disease. General Exam General appearance: alert, in no apparent distress Head exam: Present: atraumatic, normocephalic Eye exam: Present: normal appearance. Absent: scleral icterus, conjunctival injection Neck exam: Present: normal inspection, full ROM. Absent: tenderness Respiratory exam: Present: normal lung sounds bilaterally. Absent: respiratory distress, wheezes, rales, rhonchi, stridor Cardiovascular Exam: Present: regular rate, normal rhythm, normal heart sounds. Absent: systolic murmur, diastolic murmur, rubs, gallop GI/Abdominal exam: Present: soft. Absent: distended, tenderness, guarding, rebound Extremities exam: Present: tenderness (Right ankle), normal capillary refill. Absent: calf tenderness Right Upper Leg exam: Present: normal inspection. Absent: tenderness Knee exam: Present: normal inspection. Absent: tenderness, swelling Lower Leg exam: Present: normal inspection. Absent: tenderness Ankle exam: Present: tenderness. Absent: swelling, abrasion, laceration, ecchymosis, deformity Foot/Toe exam: Present: normal inspection. Absent: tenderness, swelling Neurovascular tendon exam: Present: no vascular compromise. Absent: abnormal cap refill, motor deficit, sensory deficit, tendon deficit Neurological exam: Present: alert. Absent: motor sensory deficit Skin exam: Present: warm, dry, intact, normal color. Absent: rash Course Vital Signs 09/01/21 09/02/21 09/02/21 22:35 01:00 03:20 Temperature 98.8 F Pulse Rate 60 55 L Respiratory 16 16 Rate Blood Pressure 149/70 105/51 109/55 O2 Sat by Pulse 98 93 L 95 Oximetry Medical Decision Making - Medical Decision Making Patient is 66-year-old woman with right leg pain. X-rays do appear to show subacute bimalleolar fracture. There is no acute swelling. Does appear that the injury had occurred sometime ago. Patient has splint applied here and will follow-up with orthopedics. Disposition Clinical Impression: Ankle fracture, bimalleolar, closed Disposition: HOME SELF-CARE Condition: Good Instructions (If sedation given, give patient instructions): Ankle Fracture (DC) Is patient prescribed a controlled substance at d/c from ED?: No Referrals: Andrzej Wheeler MD [Primary Care Provider] - 1-2 days Froy Aguirre MD [Medical Doctor] - 1-2 days
[2021-09-02 03:21] VITALS: BP 109/55; PULSE 55
== END 2021-09-02 03:57 | disposition home or self-care (01) ==
LOC: EC 22:23
DX: S82.841A Displaced bimalleolar fracture of right lower leg, initial encounter for closed fracture (principal); J44.9 Chronic obstructive pulmonary disease, unspecified; E11.9 Type 2 diabetes mellitus without complications; M79.7 Fibromyalgia; K21.9 Gastro-esophageal reflux disease without esophagitis; I10 Essential (primary) hypertension; M19.90 Unspecified osteoarthritis, unspecified site; E07.9 Disorder of thyroid, unspecified; F41.9 Anxiety disorder, unspecified; F31.9 Bipolar disorder, unspecified; F17.200 Nicotine dependence, unspecified, uncomplicated; Z88.0 Allergy status to penicillin; Z88.2 Allergy status to sulfonamides; Z88.5 Allergy status to narcotic agent; Z86.711 Personal history of pulmonary embolism; Z87.440 Personal history of urinary (tract) infections; Z90.49 Acquired absence of other specified parts of digestive tract; Z90.710 Acquired absence of both cervix and uterus; W18.30XA Fall on same level, unspecified, initial encounter
CPT/HCPCS: 99283; 96372; 73502; 73610; J2270

== ENCOUNTER 2021-09-03 18:33 | Inpatient (IN) | payer MEDICARE ==
[2021-09-03 18:43] LABS: Glucose,Whole Blood 92 mg/dL (75-99)
--- NOTE | 2021-09-03 19:36 | ED ---
General Adult HPI - General Chief complaint: Altered Mental Status Stated complaint: Altered LOC, ИВАН Time Seen by Provider: 09/03/21 18:46 Source: EMS Mode of arrival: EMS Limitations: altered mental status, physical limitation - History of Present Illness Initial comments: Dictation was produced using [facility] dictation software. please excuse any grammatical, word or spelling errors. Chief Complaint: 66-year-old female presents emergency department for altered mental status History of Present Illness: 66-year-old female she was transferred from [facility] for altered mental status, low-grade temperature and difficulty breathing. Patient is too altered to provide history of present illness. She allegedly has baseline mental status issues however over the last several hours she can more confused more than usual. Patient's at the bedside states that she's been confused ever since she's been in [facility]. Patient was baseline oxygen at home said to 4 L. Patient has multiple comorbidities. She according to was recently admitted for cellulitis. Unable to obtain ROS secondary to mental status PHYSICAL EXAM: General Impression: Alert and oriented x2/4, not in acute distress HEENT: Normocephalic atraumatic, extra-ocular movements intact, pupils equal and reactive to light bilaterally, mucous membranes moist. Cardiovascular: Heart regular rate and rhythm Chest: Able to complete full sentences, no retractions, no tachypnea Abdomen: abdomen soft, non-tender, non-distended, no organomegaly Musculoskeletal: Pulses present and equal in all extremities, no peripheral edema Motor: no focal deficits noted Neurological: CN II-XII grossly intact, no focal motor or sensory deficits noted Skin: Intact with no visualized rashes Psych: Normal affect and mood ED course: 66-year-old female presents emergency department for altered mentation, low-grade temperature and alleged hypoxia at the [facility]. Patient's vital signs. She is 96% on 4 L nasal cannula her usual home oxygen. Rest of labs unremarkable. Patient has no focal neurologic symptoms. Laboratory evaluation obtained. Mild leukocytosis of 13.9. Coag panel is unremarkable. Metabolic panel is within acceptable limits. Urinalysis shows greater than 182 white blood cells and greater than 182 red blood cells. Clinical presentation concerning for cath associated urinary tract infection. Computed tomography scan of the brain is unremarkable. Chest x-ray is nonacute. Patient treated with IV antibiotics. Patient be admitted to Dr. Wheeler's service per case was discussed with Dr. Liam Vieira's mid-level provider. Patient reevaluated at 9:45 PM found to be in stable medical condition. EKG interpretation: Ventricular rate 69, regular. No AL prolongation, no QTC prolongation, no ST or T-wave changes noted. EKG compared to Mateus 2021 showing no changes. Overall this EKG is nonspecific. - Related Data Home Medications Medication Instructions Recorded Confirmed Montelukast [Singulair] 10 mg PO HS 12/17/13 09/03/21 busPIRone HCL [Buspar] 30 mg PO BID@0800,209912/17/13 09/03/21 Albuterol Sulfate [Proair Hfa] 2 puff INHALATION RT-Q6H PRN 05/07/18 09/03/21 Levothyroxine Sodium [Synthroid] 150 mcg PO SUTHFRSA@0600 03/29/20 09/03/21 Citalopram Hydrobromide [CeleXA] 20 mg PO DAILY@0800 10/05/20 09/03/21 Divalproex ER [Depakote ER] 1,500 mg PO 10/05/20 09/03/21 lisinopriL 20 mg PO DAILY@0800 10/05/20 09/03/21 Albuterol Nebulized [Ventolin 2.5 mg INHALATION RT-TID@,,06/12/21 09/03/21 Nebulized] Budesonide/Formoterol Fumarate 2 puff INHALATION RT-BID@0800,1700 06/12/21 09/03/21 [Symbicort 160-4.5 Mcg Inhaler] Acetaminophen Tab [Tylenol] 650 mg PO Q4H PRN 09/03/21 09/03/21 Enoxaparin [Lovenox] 60 mg SQ DAILY@0800 09/03/21 09/03/21 Ensure Enlive 237 ml PO TID@0800,1200,1700 09/03/21 09/03/21 Famotidine [Pepcid] 20 mg PO BID@0800,1700 09/03/21 09/03/21 Gabapentin [Neurontin] 300 mg PO BID@0800,2100 09/03/21 09/03/21 Levothyroxine Sodium [Synthroid] 175 mcg PO MOTUWE@0600 09/03/21 09/03/21 Magnesium Hydroxide [Milk of 7,200 mg PO Q48H PRN 09/03/21 09/03/21 Magnesia Concentrate] Na Phos,M-B/Na Phos,Di-Ba [Fleet 133 ml RECTAL DAILY PRN 09/03/21 09/03/21 Adult] Nicotine 14Mg/24Hr Patch [Habitrol] 1 patch TRANSDERM DAILY@0800 09/03/21 09/03/21 amLODIPine [Norvasc] 5 mg PO DAILY@0800 09/03/21 09/03/21 bisacodyL 10 mg RECTAL DAILY PRN 09/03/21 09/03/21 clonazePAM [KlonoPIN] 0.5 mg PO BID@0800,1700 09/03/21 09/03/21 lamoTRIgine [LaMICtal] 100 mg PO BID@0800,2100 09/03/21 09/03/21 Allergies Allergy/AdvReac Type Severity Reaction Status Date / Time codeine Allergy Unknown Verified 09/03/21 19:26 Childhood Penicillins Allergy Rash/Hives Verified 09/03/21 19:26 Sulfa (Sulfonamide Allergy Rash/Hives Verified 09/03/21 19:26 Antibiotics) Review of Systems ROS Statement: Those systems with pertinent positive or pertinent negative responses have been documented in the HPI. ROS Other: All systems not noted in ROS Statement are negative. Past Medical History Past Medical History: Asthma, COPD, Diabetes Mellitus, Fibromyalgia, GERD/Reflux, Hypertension, Osteoarthritis (OA), Pneumonia, Pulmonary Embolus (PE), Skin Disorder, Thyroid Disorder Additional Past Medical History / Comment(s): Cervical disc disease/stenosis, scoliosis, recently having numbness/tingling L side of face/neck, recently saw [facility] for L hemidiaphragmatic elevation-pt states she was told this was probably genetic, recently bronchitis and past bronchitis, pt states recent med change (water pill) d/t electrolyte problem/kidney function being affected, pt states she has had pulmonary emboli, past bilateral lower extremity cellulitis, edema lower extremities, IBS, hemorrhoids, benign colon polyps, sinus problems, UTIs, bacteremia/sepsis, cardiac murmur, past L ankle and L wrist fractures. History of Any Multi-Drug Resistant Organisms: None Reported Past Surgical History: Adenoidectomy, Section, Cholecystectomy, Hysterectomy, Tonsillectomy Additional Past Surgical History / Comment(s): EGD, colonoscopies, gastric bypass, surgery for deviated septum Past Anesthesia/Blood Transfusion Reactions: Previous Problems w/ Anesthesia Additional Past Anesthesia/Blood Transfusion Reaction / Comment(s): itching, some kind of problem after gastric bypass-not sure what happened Past Psychological History: Anxiety, Bipolar, Depression Smoking Status: Current every day smoker Past Alcohol Use History: None Reported Past Drug Use History: None Reported - Past Family History Mother Family Medical History: Congestive Heart Failure (CHF), Hypertension Father Additional Family Medical History / Comment(s): Father at the age of 45 yrs d/t having had rheumatic fever as a child and heart valve disease. General Exam Limitations: altered mental status, physical limitation Course Vital Signs 09/03/21 09/03/21 18:47 20:31 Temperature 99.7 F H Pulse Rate 66 64 Respiratory 18 18 Rate Blood Pressure 146/59 136/59 O2 Sat by Pulse 96 91 L Oximetry Medical Decision Making - Lab Data Result diagrams: 09/03/21 20:19 09/03/21 20:19 Lab Results 09/03/21 09/03/21 09/03/21 Range/Units 18:42 20:19 20:19 WBC 13.9 H (3.8-10.6) k/uL RBC 3.98 (3.80-5.40) m/uL Hgb 12.6 (11.4-16.0) gm/dL Hct 38.6 (34.0-46.0) % MCV 96.9 (80.0-100.0) fL MCH 31.7 (25.0-35.0) pg MCHC 32.8 (31.0-37.0) g/dL RDW 12.9 (11.5-15.5) % Plt Count 127 L (150-450) k/uL MPV 7.8 Neutrophils % 76 % Lymphocytes % 11 % Monocytes % 9 % Eosinophils % 3 % Basophils % 0 % Neutrophils # 10.5 H (1.3-7.7) k/uL Lymphocytes # 1.5 (1.0-4.8) k/uL Monocytes # 1.3 H (0-1.0) k/uL Eosinophils # 0.4 (0-0.7) k/uL Basophils # 0.1 (0-0.2) k/uL PT 10.9 (9.0-12.0) sec INR 1.0 (<1.2) APTT 29.3 (22.0-30.0) sec Sodium (137-145) mmol/L Potassium (3.5-5.1) mmol/L Chloride (98-107) mmol/L Carbon Dioxide (22-30) mmol/L Anion Gap mmol/L BUN (7-17) mg/dL Creatinine (0.52-1.04) mg/dL Est GFR (CKD-EPI)AfAm (>60 ml/min/1.73 sqM) Est GFR (CKD-EPI)NonAf (>60 ml/min/1.73 sqM) Glucose (74-99) mg/dL POC Glucose (mg/dL) 92 (75-99) mg/dL POC Glu Orthopedic Radiologic Technologist ID [place], [place] Calcium (8.4-10.2) mg/dL Total Bilirubin (0.2-1.3) mg/dL AST (14-36) U/L ALT (4-34) U/L Alkaline Phosphatase (38-126) U/L Ammonia (<30) umol/L Total Protein (6.3-8.2) g/dL Albumin (3.5-5.0) g/dL TSH (0.465-4.680) mIU/L Urine Color Urine Appearance (Clear) Urine pH (5.0-8.0) Ur Specific [place] (1.001-1.035) Urine Protein (Negative) Urine Glucose (UA) (Negative) Urine Ketones (Negative) Urine Blood (Negative) Urine Nitrite (Negative) Urine Bilirubin (Negative) Urine Urobilinogen (<2.0) mg/dL Ur Leukocyte Esterase (Negative) Urine RBC (0-5) /hpf Urine WBC (0-5) /hpf Urine WBC Clumps (None) /hpf Ur Squamous Epith Cells (0-4) /hpf Urine Mucus (None) /hpf Urine Yeast (Budding) (None) /hpf 09/03/21 09/03/21 09/03/21 Range/Units 20:19 20:19 20:19 WBC (3.8-10.6) k/uL RBC (3.80-5.40) m/uL Hgb (11.4-16.0) gm/dL Hct (34.0-46.0) % MCV (80.0-100.0) fL MCH (25.0-35.0) pg MCHC (31.0-37.0) g/dL RDW (11.5-15.5) % Plt Count (150-450) k/uL MPV Neutrophils % % Lymphocytes % % Monocytes % % Eosinophils % % Basophils % % Neutrophils # (1.3-7.7) k/uL Lymphocytes # (1.0-4.8) k/uL Monocytes # (0-1.0) k/uL Eosinophils # (0-0.7) k/uL Basophils # (0-0.2) k/uL PT (9.0-12.0) sec INR (<1.2) APTT (22.0-30.0) sec Sodium 135 L (137-145) mmol/L Potassium 3.6 (3.5-5.1) mmol/L Chloride 92 L (98-107) mmol/L Carbon Dioxide 40 H (22-30) mmol/L Anion Gap 3 mmol/L BUN 20 H (7-17) mg/dL Creatinine 0.74 (0.52-1.04) mg/dL Est GFR (CKD-EPI)AfAm >90 (>60 ml/min/1.73 sqM) Est GFR (CKD-EPI)NonAf 87 (>60 ml/min/1.73 sqM) Glucose 84 (74-99) mg/dL POC Glucose (mg/dL) (75-99) mg/dL POC Glu Orthopedic Radiologic Technologist ID Calcium 9.5 (8.4-10.2) mg/dL Total Bilirubin 0.7 (0.2-1.3) mg/dL AST 39 H (14-36) U/L ALT 19 (4-34) U/L Alkaline Phosphatase 90 (38-126) U/L Ammonia <9 (<30) umol/L Total Protein 5.3 L (6.3-8.2) g/dL Albumin 2.9 L (3.5-5.0) g/dL TSH 5.560 H (0.465-4.680) mIU/L Urine Color Light Red Urine Appearance Cloudy H (Clear) Urine pH 6.0 (5.0-8.0) Ur Specific [place] 1.029 (1.001-1.035) Urine Protein 2+ H (Negative) Urine Glucose (UA) Negative (Negative) Urine Ketones 1+ H (Negative) Urine Blood Large H (Negative) Urine Nitrite Negative (Negative) Urine Bilirubin 1+ H (Negative) Urine Urobilinogen 6.0 (<2.0) mg/dL Ur Leukocyte Esterase Large H (Negative) Urine RBC >182 H (0-5) /hpf Urine WBC >182 H (0-5) /hpf Urine WBC Clumps Moderate H (None) /hpf Ur Squamous Epith Cells 2 (0-4) /hpf Urine Mucus Few H (None) /hpf Urine Yeast (Budding) Occasional H (None) /hpf Disposition Clinical Impression: UTI (urinary tract infection), Mental status alteration Disposition: ADMITTED IP TO THIS [facility] Condition: Fair Referrals: Andrzej Wheeler MD [Primary Care Provider] - 1-2 days
--- NOTE | 2021-09-03 20:09 | XR ---
EXAMINATION TYPE: XR chest 1V portable DATE OF EXAM: 09/03/2021 COMPARISON: 08/12/2021 HISTORY: Altered mental status TECHNIQUE: Single view FINDINGS: There is some mild blunting of the costophrenic angles. There is mild subsegmental atelecta sis right mid lung field. No heart failure. There are chest leads. IMPRESSION: There is some pleural reaction and atelectasis which is not significantly different than old exam. No heart failure seen.
--- NOTE | 2021-09-03 20:20 | CT ---
EXAMINATION TYPE: CT brain cspine wo con DATE OF EXAM: 09/03/2021 COMPARISON: CT brain 06/10/2020 HISTORY: ams CT DLP: 2125.8 mGycm Automated exposure control for dose reduction was used. Exam limited by motion. There is diffuse cerebral cortical atrophy. There is no mass effect nor midline shift. There is no ev idence of intracranial hemorrhage. Cervical vertebra have fairly normal alignment. There is no compression fracture in the cervical spin e. Facet joints are intact. There is mild facet arthropathy. Skull base is intact. There is normal ae ration of the mastoid sinuses. IMPRESSION: Cerebral atrophy. No acute intracranial abnormality. There is progression of the atrophy compared to the old exam. Spondylotic mild changes in the cervical spine. No fracture.
[2021-09-03 20:41] LABS: Basophils # (A) 0.1 k/uL (0-0.2); Basophils % (A) 0 %; Eosinophils # (A) 0.4 k/uL (0-0.7); Eosinophils % (A) 3 %; HCT 38.6 % (34.0-46.0); HGB 12.6 gm/dL (11.4-16.0); Lymphocytes # (A) 1.5 k/uL (1.0-4.8); Lymphocytes % (A) 11 %; MCH 31.7 pg (25.0-35.0); MCHC 32.8 g/dL (31.0-37.0); MCV 96.9 fL (80.0-100.0); Mean Platelet Volume 7.8; Monocytes # (A) 1.3 k/uL (0-1.0); Monocytes % (A) 9 %; Neutrophils # (A) 10.5 k/uL (1.3-7.7); Neutrophils % (A) 76 %; Platelet Count 127 k/uL (150-450); RBC 3.98 m/uL (3.80-5.40); RDW 12.9 % (11.5-15.5); WBC 13.9 k/uL (3.8-10.6)
[2021-09-03 20:51] LABS: ALT 19 U/L (4-34); AST 39 U/L (14-36); African American GFR (CKD) >90 (>60 ml/min/1.73 sqM); Albumin 2.9 g/dL (3.5-5.0); Alkaline Phosphatase 90 U/L (38-126); Anion Gap 3 mmol/L; Blood Urea Nitrogen 20 mg/dL (7-17); Calcium 9.5 mg/dL (8.4-10.2); Carbon Dioxide 40 mmol/L (22-30); Chloride 92 mmol/L (98-107); Glucose 84 mg/dL (74-99); Non-African American GFR(CKD) 87 (>60 ml/min/1.73 sqM); Potassium 3.6 mmol/L (3.5-5.1); Sodium 135 mmol/L (137-145); Total Bilirubin 0.7 mg/dL (0.2-1.3); Total Protein 5.3 g/dL (6.3-8.2)
[2021-09-03 20:52] LABS: Appearance,Urine Cloudy (Clear); Bilirubin,Urine 1+ (Negative); Blood,Urine Large (Negative); Budding Yeast,Urine Occasional /hpf; Color,Urine Light Red; Glucose,Urine (UA) Negative (Negative); Ketones,Urine 1+ (Negative); Leukocyte Esterase,Urine Large (Negative); Mucus,Urine Few /hpf; Nitrite,Urine Negative (Negative); Protein,Urine 2+ (Negative); RBC,Urine >182 /hpf (0-5); Specific Gravity,Urine 1.029 (1.001-1.035); Squamous Epithelial Cell,Urine 2 /hpf (0-4); WBC,Urine >182 /hpf (0-5)
[2021-09-03 21:00] LABS: Partial Thromboplastin Time 29.3 sec (22.0-30.0); Prothrombin Time 10.9 sec (9.0-12.0)
[2021-09-03] MEDS ORDERED: LORazepam 2 MG/ML INJ IV STA (21:18)
[2021-09-03] MEDS ORDERED: CEFEPIME 2 GM in SODIUM CHLORIDE 0.9% 100 ML IVPB STA (21:26)
[2021-09-03] MEDS ORDERED: NALOXONE 0.4 MG/ML 1 ML VIAL IV PRN (21:40)
[2021-09-03] MEDS ORDERED: ONDANSETRON 4 MG/2 ML VIAL IVP PRN (21:40)
[2021-09-03] MEDS ORDERED: ALBUTEROL NEBULIZED 2.5 MG/3 ML INHALATION PRN (21:59)
[2021-09-03] MEDS: SODIUM CHLORIDE 0.9% 1,000 ML IV SCH (22:00)
[2021-09-03] MEDS: DIVALPROEX ER 500 MG TAB.ER.24H PO SCH (22:20)
[2021-09-03] MEDS: MONTELUKAST 10 MG TAB PO SCH (22:21)
[2021-09-04] MEDS: GABAPENTIN 300 MG CAP PO SCH ×3 (00:29→21:25)
[2021-09-04] MEDS: lamoTRIgine 100 MG TAB PO SCH ×3 (00:29→21:25)
[2021-09-04] MEDS: ACETAMINOPHEN TAB 325 MG TAB PO PRN ×2 (05:21→21:25)
[2021-09-04] MEDS: LEVOTHYROXINE 75 MCG TAB PO SCH (05:22)
[2021-09-04 07:17] LABS: Basophils % (A) 0 %; Eosinophils # (A) 0.3 k/uL (0-0.7); Eosinophils % (A) 3 %; HCT 38.3 % (34.0-46.0); HGB 12.4 gm/dL (11.4-16.0); Lymphocytes # (A) 1.6 k/uL (1.0-4.8); Lymphocytes % (A) 14 %; MCH 31.8 pg (25.0-35.0); MCHC 32.4 g/dL (31.0-37.0); MCV 98.3 fL (80.0-100.0); Mean Platelet Volume 8.2; Monocytes % (A) 9 %; Neutrophils # (A) 8.2 k/uL (1.3-7.7); Neutrophils % (A) 72 %; Platelet Count 124 k/uL (150-450); RBC 3.89 m/uL (3.80-5.40); RDW 12.9 % (11.5-15.5); WBC 11.4 k/uL (3.8-10.6)
[2021-09-04 07:32] LABS: ALT 17 U/L (4-34); African American GFR (CKD) >90 (>60 ml/min/1.73 sqM); Albumin 2.8 g/dL (3.5-5.0); Albumin/Globulin Ratio 1.1; Anion Gap 2 mmol/L; Blood Urea Nitrogen 21 mg/dL (7-17); Calcium 9.3 mg/dL (8.4-10.2); Carbon Dioxide 35 mmol/L (22-30); Chloride 96 mmol/L (98-107); Globulin 2.5 g/dL; Glucose 67 mg/dL (74-99); Non-African American GFR(CKD) >90 (>60 ml/min/1.73 sqM); Sodium 133 mmol/L (137-145); Total Bilirubin 0.7 mg/dL (0.2-1.3); Total Protein 5.3 g/dL (6.3-8.2)
[2021-09-04 07:37] LABS: AST 36 U/L (14-36); Alkaline Phosphatase 74 U/L (38-126); Potassium 3.7 mmol/L (3.5-5.1)
[2021-09-04] MEDS ORDERED: GABAPENTIN 300 MG CAP PO SCH (08:00)
[2021-09-04] MEDS: ALBUTEROL NEBULIZED 2.5 MG/3 ML INHALATION SCH ×3 (08:35→19:53)
[2021-09-04] MEDS: SYMBICORT 160-4.5 MCG INHALER INHALATION SCH ×2 (08:38→19:54)
[2021-09-04] MEDS: clonazePAM 0.5 MG TAB PO SCH ×2 (08:54→17:19)
[2021-09-04] MEDS: lisinopriL 20 MG TAB PO SCH (08:54)
[2021-09-04] MEDS: NICOTINE 14MG/24HR PATCH TRANSDERM SCH (08:54)
[2021-09-04] MEDS: busPIRone HCl 10 MG TAB PO SCH ×2 (08:54→21:25)
[2021-09-04] MEDS: amLODIPine 5 MG TAB PO SCH (08:54)
[2021-09-04] MEDS: FAMOTIDINE 20 MG TAB PO SCH ×2 (08:54→17:19)
[2021-09-04] MEDS: ENOXAPARIN 60 MG/0.6 ML SYRINGE SQ SCH (08:55)
[2021-09-04] MEDS: CITALOPRAM HYDROBROMIDE 20 MG TAB PO SCH (09:04)
--- NOTE | 2021-09-04 13:18 | P.HPIM ---
<Ilad, - Last Filed: 09/04/21 12:50> History of Present Illness H&P Date: 09/04/21 Chief Complaint: Altered mental status Patient is a 66-year-old female who presented to the emergency room from [facility] for altered mental status, low-grade temp and difficulty breathing. Patient has a significant medical history that includes COPD, diabetes, fibromyalgia, GERD, hypertension, osteoarthritis, history of pulmonary embolism, recent bilateral lower extremity cellulitis, IBS, history of urinary tract infections with sepsis, anxiety, bipolar, depression, and thyroid disorder. Chest x-ray found some right pleural atelectasis which was not significantly different to last exam. CT of brain and C-spine found cerebral atrophy with no acute intracranial abnormality, Spondylitic mild changes in the cervical spine with no fracture. White count was elevated at 13.9. urine was positive for red and white blood cells, yeast budding and protein. Has history of urinary retent ion with a chronic indwelling catheter. Patient was admitted for possible UTI causing mental status changes. Infectious disease was consulted. Patient was seen and examined at bedside today, continues to be confused. Oriented to self, does not answer questions correctly, does not follow simple co mmands. The patient is very tearful and mumbling random words. Spoke with the Jose Eduardo, he states that the patient has been confused since last admission in July, and has been hallucinating at [facility]. He claims that she is lucid at times, but majority of the time is confused and talks to people that are not in the room. Patient does have a history of psychiatric disorders, psychiatry was consulted to review medications. Patient also had a fall on Wednesday, September 01 2021 at [facility]. Right ankle x-ray showed transverse fracture of the medial and lateral malleolus. Right ankle is wrapped, was [facility], consulted orthopedics to see patient while in hospital. White count improved to 11.4 today. Husain catheter was replaced. Review of Systems unable to answer any questions, confused and tearful Past Medical History Past Medical History: Asthma, COPD, Diabetes Mellitus, Fibromyalgia, GERD/Reflux, Hypertension, Osteoarthritis (OA), Pneumonia, Pulmonary Embolus (PE), Skin Disorder, Thyroid Disorder Additional Past Medical History / Comment(s): Cervical disc disease/stenosis, scoliosis, recently having numbness/tingling L side of face/neck, recently saw sawyer cork slabs for L hemidiaphragmatic elevation-pt states she was told this was probably genetic, recently bronchitis and past bronchitis, pt states recent med change (water pill) d/t electrolyte problem/kidney function being affected, pt states she has had pulmonary emboli, past bilateral lower extremity cellulitis, edema lower extremities, IBS, hemorrhoids, benign colon polyps, sinus problems, UTIs, bacteremia/sepsis, cardiac murmur, past L ankle and L wrist fractures. History of Any Multi-Drug Resistant Organisms: None Reported Past Surgical History: Adenoidectomy, Section, Cholecystectomy, Hysterectomy, Tonsillectomy Additional Past Surgical History / Comment(s): EGD, colonoscopies, gastric bypass, surgery for deviated septum Past Anesthesia/Blood Transfusion Reactions: Previous Problems w/ Anesthesia Additional Past Anesthesia/Blood Transfusion Reaction / Comment(s): itching, some kind of problem after gastric bypass-not sure what happened Past Psychological History: Anxiety, Bipolar, Depression Additional Psychological History / Comment(s): Pt resides with her spouse. Smoking Status: Smoker, current status unknown Past Alcohol Use History: None Reported Additional Past Alcohol Use History / Comment(s): started smoking in her 30s- smokes 1.5 packs per day. Past Drug Use History: None Reported - Past Family History Mother Family Medical History: Congestive Heart Failure (CHF), Hypertension Father Additional Family Medical History / Comment(s): Father at the age of 45 yrs d/t having had rheumatic fever as a child and heart valve disease. Medications and Allergies Home Medications Medication Instructions Recorded Confirmed Type Montelukast [Singulair] 10 mg PO HS 12/17/13 09/03/21 History busPIRone HCL [Buspar] 30 mg PO BID@0800,2100 12/17/13 09/03/21 History Albuterol Sulfate [Proair Hfa] 2 puff INHALATION RT-Q6H PRN 05/07/18 09/03/21 History Levothyroxine Sodium [Synthroid] 150 mcg PO SUTHFRSA@0600 03/29/20 09/03/21 History lisinopriL 20 mg PO DAILY@0800 10/05/20 09/03/21 History Albuterol Nebulized [Ventolin 2.5 mg INHALATION RT-TID@,06/12/21 09/03/21 History Nebulized] Budesonide/Formoterol Fumarate 2 puff INHALATION RT-BID@0800,1700 06/12/21 09/03/21 History [Symbicort 160-4.5 Mcg Inhaler] Acetaminophen Tab [Tylenol] 650 mg PO Q4H PRN 09/03/21 09/03/21 History Enoxaparin [Lovenox] 60 mg SQ DAILY@0800 09/03/21 09/03/21 History Ensure Enlive 237 ml PO TID@0800,1200,1700 09/03/21 09/03/21 History Famotidine [Pepcid] 20 mg PO BID@0800,17009/03/21 09/03/21 History Gabapentin [Neurontin] 300 mg PO BID@0800,209909/03/21 09/03/21 History Levothyroxine Sodium [Synthroid] 175 mcg PO MOTUWE@0600 09/03/21 09/03/21 History Magnesium Hydroxide [Milk of 7,200 mg PO Q48H PRN 09/03/21 09/03/21 History Magnesia Concentrate] Na Phos,M-B/Na Phos,Di-Ba [Fleet 133 ml RECTAL DAILY PRN 09/03/21 09/03/21 History Adult] Nicotine 14Mg/24Hr Patch [Habitrol] 1 patch TRANSDERM DAILY@0800 09/03/21 09/03/21 History amLODIPine [Norvasc] 5 mg PO DAILY@0800 09/03/21 09/03/21 History clonazePAM [KlonoPIN] 0.5 mg PO BID@0800,1700 09/03/21 09/03/21 History lamoTRIgine [LaMICtal] 100 mg PO BID@0800,2100 09/03/21 09/03/21 History Cefepime [Maxipime] 2 gm IVPB Q8HR 7 Days each 09/11/21 Rx Divalproex ER [Depakote ER] 750 mg PO DAILY #1 tab 09/11/21 Rx Allergies Allergy/AdvReac Type Severity Reaction Status Date / Time codeine Allergy Unknown Verified 09/03/21 19:26 Childhood Penicillins Allergy Rash/Hives Verified 09/03/21 19:26 Sulfa (Sulfonamide Allergy Rash/Hives Verified 09/03/21 19:26 Antibiotics) Physical Exam Vitals: Vital Signs Temp Pulse Pulse Resp BP BP Pulse Ox 09/04/21 08:56 72 09/04/21 08:48 91 L 09/04/21 08:35 70 09/04/21 05:11 98 F 68 20 158/76 91 L 09/03/21 23:49 98.5 F 65 16 146/65 96 09/03/21 20:31 64 18 136/59 91 L 09/03/21 18:47 99.7 F H 66 18 146/59 96 Intake and Output 09/03/21 09/04/21 09/04/21 22:59 06:59 14:59 Output Total 100 150 Balance -100 -150 Output: Urine 100 150 Other: # Bowel Movements 1 Weight 113.398 kg - Constitutional General appearance: no acute distress, obese - EENT Eyes: EOMI, PERRLA ENT: normal oropharynx Ears: bilateral: normal - Neck Neck: normal ROM Carotids: bilateral: upstroke normal Thyroid: bilateral: normal size - Respiratory Respiratory: bilateral: diminished - Cardiovascular Heart rate: 70 Rhythm: regular Heart sounds: normal: S1, S2 radial pulse Peripheral Pulses: bilateral: Normal - Gastrointestinal General gastrointestinal: normal bowel sounds, soft - Genitourinary chronic indwelling catheter in place - Integumentary Integumentary: normal - Neurologic Neurologic: focal deficits - Musculoskeletal right ankle cast Musculoskeletal: generalized weakness - Psychiatric alert, oriented to self, tearful, does not follow commands Results CBC & Chem 7: 09/04/21 06:36 09/04/21 06:36 Labs: Abnormal Lab Results - Last 24 Hours (Table) 09/03/21 09/03/21 09/03/21 Range/Units 20:19 20:19 20:19 WBC 13.9 H (3.8-10.6) k/uL Plt Count 127 L (150-450) k/uL Neutrophils # 10.5 H (1.3-7.7) k/uL Monocytes # 1.3 H (0-1.0) k/uL Sodium 135 L (137-145) mmol/L Chloride 92 L (98-107) mmol/L Carbon Dioxide 40 H (22-30) mmol/L BUN 20 H (7-17) mg/dL Glucose (74-99) mg/dL AST 39 H (14-36) U/L Total Protein 5.3 L (6.3-8.2) g/dL Albumin 2.9 L (3.5-5.0) g/dL TSH 5.560 H (0.465-4.680) mIU/L Urine Appearance Cloudy H (Clear) Urine Protein 2+ H (Negative) Urine Ketones 1+ H (Negative) Urine Blood Large H (Negative) Urine Bilirubin 1+ H (Negative) Ur Leukocyte Esterase Large H (Negative) Urine RBC >182 H (0-5) /hpf Urine WBC >182 H (0-5) /hpf Urine WBC Clumps Moderate H (None) /hpf Urine Mucus Few H (None) /hpf Urine Yeast (Budding) Occasional H (None) /hpf 09/04/21 09/04/21 Range/Units 06:36 06:36 WBC 11.4 H (3.8-10.6) k/uL Plt Count 124 L (150-450) k/uL Neutrophils # 8.2 H (1.3-7.7) k/uL Monocytes # (0-1.0) k/uL Sodium 133 L (137-145) mmol/L Chloride 96 L (98-107) mmol/L Carbon Dioxide 35 H (22-30) mmol/L BUN 21 H (7-17) mg/dL Glucose 67 L (74-99) mg/dL AST (14-36) U/L Total Protein 5.3 L (6.3-8.2) g/dL Albumin 2.8 L (3.5-5.0) g/dL TSH (0.465-4.680) mIU/L Urine Appearance (Clear) Urine Protein (Negative) Urine Ketones (Negative) Urine Blood (Negative) Urine Bilirubin (Negative) Ur Leukocyte Esterase (Negative) Urine RBC (0-5) /hpf Urine WBC (0-5) /hpf Urine WBC Clumps (None) /hpf Urine Mucus (None) /hpf Urine Yeast (Budding) (None) /hpf Microbiology - Last 24 Hours (Table) 09/03/21 20:19 Urine Culture - Preliminary Urine,Clean Catch Abdominal x-ray: report reviewed CT Scan - head: report reviewed Thrombosis Risk Factor Assmnt - DVT/VTE Prophylaxis DVT/VTE Prophylaxis: Pharmacologic Prophylaxis ordered (home dose of lovenox) - Choose All That Apply Any of the Below Risk Factors Present?: Yes Each Factor Represents 1 point: Abnormal pulmonary function (COPD), Obesity (BMI >25) Other Risk Factors: Yes Each Risk Factor Represents 2 Points: Age 61-74 years Each Risk Factor Represents 3 Points: History of DVT/PE Other congenital or acquired thrombophilia - If yes, enter type in comment: No Thrombosis Risk Factor Assessment Total Risk Factor Score: 7 Thrombosis Risk Factor Assessment Level: High Risk Assessment and Plan Assessment: Altered mental status Probable urinary tract infection, culture pending leukocytosis Transverse fracture of right malleolus History of Bipolar disorder Urinary retention, chronic indwelling catheter Hypertension COPD without exacerbation, maintained on 4 L of oxygen Diabetes melitis, not on oral medication Anxiety History of GERD History of pulmonary embolism, on Lovenox DO NOT RESUSCITATE Plan: Continue following infectious disease recommendations for leukocytosis Husain catheter was changed, new urine culture sent Psychiatry consultation for altered mental status, persistent confusion and hallucinations Recent ankle fracture, orthopedics consulted Sliding-scale insulin for glucose control Continue current medication regimen Continue to monitor vital signs and mental status Confirmed advanced directive with Further recommendations to come based on patient's clinical course Time with Patient: Greater than 30 <Andrzej Wheeler - Last Filed: 09/11/21 19:38> History of Present Illness I have personally seen and examined the patient, reviewed the documentation and agree with the assessment and plan as written. Number of minutes spent on the visit: Greater than 15. Physical Exam Vitals: Vital Signs Temp Pulse Pulse Resp BP Pulse Ox 09/11/21 19:11 72 09/11/21 19:04 69 94 L 09/11/21 12:28 98.0 F 73 18 162/71 96 09/11/21 08:00 97.8 F 81 20 134/74 09/11/21 07:28 68 09/11/21 07:21 93 L 09/11/21 07:17 84 09/11/21 05:00 97.6 F 60 18 131/63 95 09/10/21 20:57 98 F 70 18 171/74 94 L 09/10/21 20:32 72 09/10/21 20:24 68 96 Intake and Output 09/11/21 09/11/21 09/11/21 06:59 14:59 22:59 Intake Total 240 480 Output Total 400 500 Balance -400 240 -20 Intake: Oral 240 480 Output: Urine 400 500 Other: Voiding Method Indwelling Catheter Results CBC & Chem 7: 09/11/21 06:22 09/11/21 06:22 Labs: Abnormal Lab Results - Last 24 Hours (Table) 09/10/21 09/11/21 09/11/21 Range/Units 20:21 06:22 06:22 WBC 10.82 H (4.50-10.00) X 10*3/uL RBC 3.61 L (4.10-5.20) X 10*6/uL Hgb 11.0 L (12.0-15.0) g/dL Hct 35.8 L (37.2-46.3) % MCV 99.2 H (80.0-97.0) fL MCHC 30.7 L (32.0-37.0) g/dL MPV 9.3 L (9.5-12.2) fL Carbon Dioxide 29.8 H (20.0-27.5) mmol/L Anion Gap 7.80 L (10.00-18.00) mmol/L Creatinine 0.5 L (0.6-1.5) mg/dL POC Glucose (mg/dL) 125 H (75-99) mg/dL 09/11/21 Range/Units 16:47 WBC (4.50-10.00) X 10*3/uL RBC (4.10-5.20) X 10*6/uL Hgb (12.0-15.0) g/dL Hct (37.2-46.3) % MCV (80.0-97.0) fL MCHC (32.0-37.0) g/dL MPV (9.5-12.2) fL Carbon Dioxide (20.0-27.5) mmol/L Anion Gap (10.00-18.00) mmol/L Creatinine (0.6-1.5) mg/dL POC Glucose (mg/dL) 106 H (75-99) mg/dL
[2021-09-04 13:43] LABS: Appearance,Urine Cloudy (Clear); Bacteria,Urine Rare /hpf; Bilirubin,Urine Negative (Negative); Blood,Urine Large (Negative); Color,Urine Yellow; Glucose,Urine (UA) Negative (Negative); Ketones,Urine 2+ (Negative); Leukocyte Esterase,Urine Small (Negative); Mucus,Urine Rare /hpf; Nitrite,Urine Negative (Negative); PH, Urine 7.5 (5.0-8.0); Protein,Urine 2+ (Negative); RBC,Urine >182 /hpf (0-5); Specific Gravity,Urine 1.021 (1.001-1.035); Squamous Epithelial Cell,Urine 1 /hpf (0-4); WBC,Urine 20 /hpf (0-5)
[2021-09-04] MEDS: SODIUM CHLORIDE 0.9% 1,000 ML IV SCH ×3 (14:23→21:34)
[2021-09-04] MEDS: CEFEPIME 2 GM in SODIUM CHLORIDE 0.9% 100 ML IVPB SCH ×2 (14:23→14:27)
[2021-09-04 17:19] LABS: Glucose,Whole Blood 74 mg/dL (75-99)
[2021-09-04] MEDS: INSULIN ASPART (NovoLOG) 100 UNIT/ML VIAL SQ SCH ×2 (17:19→21:26)
[2021-09-04 20:35] LABS: Glucose,Whole Blood 86 mg/dL (75-99)
[2021-09-04] MEDS: MONTELUKAST 10 MG TAB PO SCH (21:25)
[2021-09-04] MEDS: DIVALPROEX ER 500 MG TAB.ER.24H PO SCH (21:25)
--- NOTE | 2021-09-04 22:58 | P.CONS ---
History of Present Illness - Reason for Consult Consult date: 09/04/21 Suspected UTI Requesting physician: Isha Gonsales - Chief Complaint Mental status changes x one day - History of Present Illness Patient is a 66-year female with multiple comorbidities currently resident of local half-way, the patient was sent to the ER for evaluation of mental status changes low-grade fever and difficulty breathing apparently the patient recently did have a right ankle fracture which is currently in a cast and for the patient was in rehab patient also have a chronic indwelling Husain catheter for urinary retention, patient on presentation to the hospital did have a low-grade fever of 99.7 F patient did have a white count of 13.9 with a left shift did have a normal creatinine liver enzymes are normal patient did have a positive UA with large leukocyte esterase more than 22 WBC patient Covid testing was negative patient did have a chest x-ray some pleural reaction atelectasis which is not significantly different than old exam patient did receive a dose of cefepime in the ER subsequently has been admitted to the hospital infectious disease was consulted for further management of antibiotic therapy, most of the information has been obtained from review the chart and talking to nursing staff as the patient was lethargic and did not provide any history Review of Systems Positive points has been mentioned in HPI complete review could not be obtained because of his underlying mental status Past Medical History Past Medical History: Asthma, COPD, Diabetes Mellitus, Fibromyalgia, GERD/Reflux, Hypertension, Osteoarthritis (OA), Pneumonia, Pulmonary Embolus (PE), Skin Disorder, Thyroid Disorder Additional Past Medical History / Comment(s): Cervical disc disease/stenosis, scoliosis, recently having numbness/tingling L side of face/neck, recently saw fox farmer for L hemidiaphragmatic elevation-pt states she was told this was probably genetic, recently bronchitis and past bronchitis, pt states recent med change (water pill) d/t electrolyte problem/kidney function being affected, pt states she has had pulmonary emboli, past bilateral lower extremity cellulitis, edema lower extremities, IBS, hemorrhoids, benign colon polyps, sinus problems, UTIs, bacteremia/sepsis, cardiac murmur, past L ankle and L wrist fractures. History of Any Multi-Drug Resistant Organisms: None Reported Past Surgical History: Adenoidectomy, Section, Cholecystectomy, Hysterectomy, Tonsillectomy Additional Past Surgical History / Comment(s): EGD, colonoscopies, gastric bypass, surgery for deviated septum Past Anesthesia/Blood Transfusion Reactions: Previous Problems w/ Anesthesia Additional Past Anesthesia/Blood Transfusion Reaction / Comm: itching, some kind of problem after gastric bypass-not sure what happened Past Psychological History: Anxiety, Bipolar, Depression Additional Psychological History / Comment(s): Pt resides with her spouse. Smoking Status: Smoker, current status unknown Past Alcohol Use History: None Reported Additional Past Alcohol Use History / Comment(s): started smoking in her 30s- smokes 1.5 packs per day. Past Drug Use History: None Reported - Past Family History Mother Family Medical History: Congestive Heart Failure (CHF), Hypertension Father Additional Family Medical History / Comment(s): Father at the age of 45 yrs d/t having had rheumatic fever as a child and heart valve disease. Medications and Allergies Home Medications Medication Instructions Recorded Confirmed Type Montelukast [Singulair] 10 mg PO HS 12/17/13 09/03/21 History busPIRone HCL [Buspar] 30 mg PO BID@0800,2100 12/17/13 09/03/21 History Albuterol Sulfate [Proair Hfa] 2 puff INHALATION RT-Q6H PRN 05/07/18 09/03/21 History Levothyroxine Sodium [Synthroid] 150 mcg PO SUTHFRSA@0600 03/29/20 09/03/21 History Citalopram Hydrobromide [CeleXA] 20 mg PO DAILY@0800 10/05/20 09/03/21 History Divalproex ER [Depakote ER] 1,500 mg PO HS 10/05/20 09/03/21 History lisinopriL 20 mg PO DAILY@0800 10/05/20 09/03/21 History Albuterol Nebulized [Ventolin 2.5 mg INHALATION RT-TID@,06/12/2108/19 History Nebulized] Budesonide/Formoterol Fumarate 2 puff INHALATION RT-BID@0800,1700 06/12/21 09/03/21 History [Symbicort 160-4.5 Mcg Inhaler] Acetaminophen Tab [Tylenol] 650 mg PO Q4H PRN 09/03/21 09/03/21 History Enoxaparin [Lovenox] 60 mg SQ DAILY@0800 09/03/21 09/03/21 History Ensure Enlive 237 ml PO TID@0800,1200,1700 09/03/21 09/03/21 History Famotidine [Pepcid] 20 mg PO BID@0800,1700 09/03/21 09/03/21 History Gabapentin [Neurontin] 300 mg PO BID@0800,2100 09/03/21 09/03/21 History Levothyroxine Sodium [Synthroid] 175 mcg PO MOTUWE@0600 09/03/21 09/03/21 Hist ory Magnesium Hydroxide [Milk of 7,200 mg PO Q48H PRN 09/03/21 09/03/21 History Magnesia Concentrate] Na Phos,M-B/Na Phos,Di-Ba [Fleet 133 ml RECTAL DAILY PRN 09/03/21 09/03/21 History Adult] Nicotine 14Mg/24Hr Patch [Habitrol] 1 patch TRANSDERM DAILY@0800 09/03/21 09/03/21 History amLODIPine [Norvasc] 5 mg PO DAILY@0800 09/03/21 09/03/21 History bisacodyL 10 mg RECTAL DAILY PRN 09/03/21 09/03/21 History clonazePAM [KlonoPIN] 0.5 mg PO BID@0800,1700 09/03/21 09/03/21 History lamoTRIgine [LaMICtal] 100 mg PO BID@0800,2100 09/03/21 09/03/21 History Allergies Allergy/AdvReac Type Severity Reaction Status Date / Time codeine Allergy Unknown Verified 09/03/21 19:26 Childhood Penicillins Allergy Rash/Hives Verified 09/03/21 19:26 Sulfa (Sulfonamide Allergy Rash/Hives Verified 09/03/21 19:26 Antibiotics) Physical Exam Vitals: Vital Signs Temp Pulse Pulse Resp BP BP Pulse Ox 09/04/21 08:56 72 09/04/21 08:48 91 L 09/04/21 08:35 70 09/04/21 05:11 98 F 68 20 158/76 91 L 09/03/21 23:49 98.5 F 65 16 146/65 96 09/03/21 20:31 64 18 136/59 91 L 09/03/21 18:47 99.7 F H 66 18 146/59 96 Intake and Output 09/03/21 09/04/21 09/04/21 22:59 06:59 14:59 Output Total 100 Balance -100 Output: Urine 100 Other: # Bowel Movements 1 Weight 113.398 kg GENERAL DESCRIPTION: Middle-aged female lying in bed, no distress. No tachypnea or accessory muscle of respiration use. HEENT: Shows Pallor , no scleral icterus. Oral mucous membrane is dry. No pharyngeal erythema or thrush NECK: Trachea central, no thyromegaly. LUNGS: Unlabored breathing. Decreased breath sound on the. No wheeze or crackle. HEART: S1, S2, regular rate and rhythm. No loud murmur ABDOMEN: Soft, no tenderness , guarding or rigidity, no organomegaly EXTREMITIES: No edema of feet. SKIN: No rash, no masses palpable. NEUROLOGICAL: The patient is lethargic orientation could not be determined Results CBC & Chem 7: 09/04/21 06:36 09/04/21 06:36 Labs: Abnormal Lab Results - Last 24 Hours (Table) 09/03/21 09/03/21 09/03/21 Range/Units 20:19 20:19 20:19 WBC 13.9 H (3.8-10.6) k/uL Plt Count 127 L (150-450) k/uL Neutrophils # 10.5 H (1.3-7.7) k/uL Monocytes # 1.3 H (0-1.0) k/uL Sodium 135 L (137-145) mmol/L Chloride 92 L (98-107) mmol/L Carbon Dioxide 40 H (22-30) mmol/L BUN 20 H (7-17) mg/dL Glucose (74-99) mg/dL AST 39 H (14-36) U/L Total Protein 5.3 L (6.3-8.2) g/dL Albumin 2.9 L (3.5-5.0) g/dL TSH 5.560 H (0.465-4.680) mIU/L Urine Appearance Cloudy H (Clear) Urine Protein 2+ H (Negative) Urine Ketones 1+ H (Negative) Urine Blood Large H (Negative) Urine Bilirubin 1+ H (Negative) Ur Leukocyte Esterase Large H (Negative) Urine RBC >182 H (0-5) /hpf Urine WBC >182 H (0-5) /hpf Urine WBC Clumps Moderate H (None) /hpf Urine Mucus Few H (None) /hpf Urine Yeast (Budding) Occasional H (None) /hpf 09/04/21 09/04/21 Range/Units 06:36 06:36 WBC 11.4 H (3.8-10.6) k/uL Plt Count 124 L (150-450) k/uL Neutrophils # 8.2 H (1.3-7.7) k/uL Monocytes # (0-1.0) k/uL Sodium 133 L (137-145) mmol/L Chloride 96 L (98-107) mmol/L Carbon Dioxide 35 H (22-30) mmol/L BUN 21 H (7-17) mg/dL Glucose 67 L (74-99) mg/dL AST (14-36) U/L Total Protein 5.3 L (6.3-8.2) g/dL Albumin 2.8 L (3.5-5.0) g/dL TSH (0.465-4.680) mIU/L Urine Appearance (Clear) Urine Protein (Negative) Urine Ketones (Negative) Urine Blood (Negative) Urine Bilirubin (Negative) Ur Leukocyte Esterase (Negative) Urine RBC (0-5) /hpf Urine WBC (0-5) /hpf Urine WBC Clumps (None) /hpf Urine Mucus (None) /hpf Urine Yeast (Budding) (None) /hpf Microbiology - Last 24 Hours (Table) 09/03/21 20:19 Urine Culture - Preliminary Urine,Clean Catch Assessment and Plan (1) UTI (urinary tract infection) Current Visit: Yes Status: Acute Code(s): N39.0 - URINARY TRACT INFECTION, SITE NOT SPECIFIED SNOMED Code(s): 85500648 Plan: 1-Patient presented to hospital with mental status changes patient did have a low-grade fever elevated white count source likely catheter associated tract infection likely from enteric gram-negative pathogen patient being a half-way resident we need to cover for resistant gram-negative. 2patient with penicillin sulfa allergy that would limit the number of antibiotics safe to use. 3change Husain catheter and obtain urine culture from the new Husain. 4cefepime 2 g every 8 hours while awaiting for the culture to finalize. We will follow on clinical condition and cultures to further adjust medication if needed Thank you for this consultation we will follow the patient along with you Time with Patient: Greater than 30
[2021-09-05] MEDS: CEFEPIME 2 GM in SODIUM CHLORIDE 0.9% 100 ML IVPB SCH ×3 (00:12→15:01)
[2021-09-05] MEDS: LEVOTHYROXINE 75 MCG TAB PO SCH (06:18)
[2021-09-05 07:08] LABS: Glucose,Whole Blood 69 mg/dL (75-99)
[2021-09-05 07:31] LABS: Glucose,Whole Blood 86 mg/dL (75-99)
[2021-09-05] MEDS: ALBUTEROL NEBULIZED 2.5 MG/3 ML INHALATION SCH ×4 (07:45→20:15)
[2021-09-05] MEDS: SYMBICORT 160-4.5 MCG INHALER INHALATION SCH ×2 (07:46→20:15)
[2021-09-05] MEDS: NICOTINE 14MG/24HR PATCH TRANSDERM SCH (09:17)
[2021-09-05] MEDS: INSULIN ASPART (NovoLOG) 100 UNIT/ML VIAL SQ SCH ×4 (09:18→22:01)
[2021-09-05] MEDS: busPIRone HCl 10 MG TAB PO SCH ×2 (09:19→22:01)
[2021-09-05] MEDS: ENOXAPARIN 60 MG/0.6 ML SYRINGE SQ SCH (09:19)
[2021-09-05] MEDS: GABAPENTIN 300 MG CAP PO SCH ×2 (09:19→22:00)
[2021-09-05] MEDS: CITALOPRAM HYDROBROMIDE 20 MG TAB PO SCH (09:20)
[2021-09-05] MEDS: clonazePAM 0.5 MG TAB PO SCH ×2 (09:20→16:44)
[2021-09-05] MEDS: FAMOTIDINE 20 MG TAB PO SCH ×2 (09:20→16:44)
[2021-09-05] MEDS: lisinopriL 20 MG TAB PO SCH (09:20)
[2021-09-05] MEDS: amLODIPine 5 MG TAB PO SCH (09:20)
[2021-09-05] MEDS: lamoTRIgine 100 MG TAB PO SCH ×2 (09:20→22:01)
[2021-09-05] MEDS: DEXTROSE 5%-0.9% NACL 1,000 ML IV SCH ×2 (09:21→22:01)
[2021-09-05] MEDS: ACETAMINOPHEN TAB 325 MG TAB PO PRN (09:34)
--- NOTE | 2021-09-05 10:20 | P.CNOR ---
History of Present Illness - [facility] Consult date: 09/05/21 Consult reason: fracture (Right ankle fracture) History of present illness: The patient is a 66 y/o female is an extensive medical history who presented the emergency department from [facility] with mental status changes and a UTI. She was in the ER on Wednesday09/01/2021 due to a fall with right ankle pain. X-rays were taken at that time and an ankle fracture was found. The patient was placed in a splint and referred to our office for an appointment with Dr. Aguirre. However, the patient was sent back to the ER before her outpatient appointment with us. Orthopedics was consulted for further evaluation and care of her right ankle fracture. Today, the patient states the ankle is painful but is also complaining of pain in multiple other areas of her body. The patient is confused and upset her is not at the bedside this morning. She currently has a jennings catheter and has not been out of bed yet. Physical therapy has been ordered. Review of Systems ROS unobtainable: due to mental status Past Medical History Past Medical History: Asthma, COPD, Diabetes Mellitus, Fibromyalgia, GERD/Reflux, Hypertension, Osteoarthritis (OA), Pneumonia, Pulmonary Embolus (PE), Skin Disorder, Thyroid Disorder Additional Past Medical History / Comment(s): Cervical disc disease/stenosis, scoliosis, recently having numbness/tingling L side of face/neck, recently saw senior mortgage underwriter for L hemidiaphragmatic elevation-pt states she was told this was probably genetic, recently bronchitis and past bronchitis, pt states recent med change (water pill) d/t electrolyte problem/kidney function being affected, pt states she has had pulmonary emboli, past bilateral lower extremity cellulitis, edema lower extremities, IBS, hemorrhoids, benign colon polyps, sinus problems, UTIs, bacteremia/sepsis, cardiac murmur, past L ankle and L wrist fractures. History of Any Multi-Drug Resistant Organisms: None Reported Past Surgical History: Adenoidectomy, Section, Cholecystectomy, Hysterectomy, Tonsillectomy Additional Past Surgical History / Comment(s): EGD, colonoscopies, gastric bypass, surgery for deviated septum Past Anesthesia/Blood Transfusion Reactions: Previous Problems w/ Anesthesia Additional Past Anesthesia/Blood Transfusion Reaction / Comm: itching, some kind of problem after gastric bypass-not sure what happened Past Psychological History: Anxiety, Bipolar, Depression Additional Psychological History / Comment(s): Pt resides with her spouse. Smoking Status: Smoker, current status unknown Past Alcohol Use History: None Reported Additional Past Alcohol Use History / Comment(s): started smoking in her 30s- smokes 1.5 packs per day. Past Drug Use History: None Reported - Past Family History Mother Family Medical History: Congestive Heart Failure (CHF), Hypertension Father Additional Family Medical History / Comment(s): Father at the age of 45 yrs d/t having had rheumatic fever as a child and heart valve disease. Medications and Allergies Home Medications Medication Instructions Recorded Confirmed Type Montelukast [Singulair] 10 mg PO HS 12/17/13 09/03/21 History busPIRone HCL [Buspar] 30 mg PO BID@0800,2100 12/17/13 09/03/21 History Albuterol Sulfate [Proair Hfa] 2 puff INHALATION RT-Q6H PRN 05/07/18 09/03/21 History Levothyroxine Sodium [Synthroid] 150 mcg PO SUTHFRSA@0600 03/29/20 09/03/21 History Citalopram Hydrobromide [CeleXA] 20 mg PO DAILY@0800 10/05/20 09/03/21 History Divalproex ER [Depakote ER] 1,500 mg PO HS 10/05/20 09/03/21 History lisinopriL 20 mg PO DAILY@0800 10/05/20 09/03/21 History Albuterol Nebulized [Ventolin 2.5 mg INHALATION RT-TID@,,06/12/21 09/03/21 History Nebulized] Budesonide/Formoterol Fumarate 2 puff INHALATION RT-BID@0800,1700 06/12/21 09/03/21 History [Symbicort 160-4.5 Mcg Inhaler] Acetaminophen Tab [Tylenol] 650 mg PO Q4H PRN 09/03/21 09/03/21 History Enoxaparin [Lovenox] 60 mg SQ DAILY@0800 09/03/21 09/03/21 History Ensure Enlive 237 ml PO TID@0800,1200,1700 09/03/21 09/03/21 History Famotidine [Pepcid] 20 mg PO BID@0800,1700 09/03/21 09/03/21 History Gabapentin [Neurontin] 300 mg PO BID@0800,2100 09/03/21 09/03/21 History Levothyroxine Sodium [Synthroid] 175 mcg PO MOTUWE@0600 09/03/21 09/03/21 History Magnesium Hydroxide [Milk of 7,200 mg PO Q48H PRN 09/03/21 09/03/21 History Magnesia Concentrate] Na Phos,M-B/Na Phos,Di-Ba [Fleet 133 ml RECTAL DAILY PRN 09/03/21 09/03/21 History Adult] Nicotine 14Mg/24Hr Patch [Habitrol] 1 patch TRANSDERM DAILY@0800 09/03/21 09/03/21 History amLODIPine [Norvasc] 5 mg PO DAILY@0800 09/03/21 09/03/21 History bisacodyL 10 mg RECTAL DAILY PRN 09/03/21 09/03/21 History clonazePAM [KlonoPIN] 0.5 mg PO BID@0800,1700 09/03/21 09/03/21 History lamoTRIgine [LaMICtal] 100 mg PO BID@0800,2100 09/03/21 09/03/21 History Allergies Allergy/AdvReac Type Severity Reaction Status Date / Time codeine Allergy Unknown Verified 09/03/21 19:26 Childhood Penicillins Allergy Rash/Hives Verified 09/03/21 19:26 Sulfa (Sulfonamide Allergy Rash/Hives Verified 09/03/21 19:26 Antibiotics) Physical Examination The patient is a 66 y/o female in no acute distress. She is alert and oriented x1. Tenderness, mild kkswelling, and ecchymosis over lateral malleolus and medial malleolus. Some tenderness also over lateral ankle ligaments. Direct tenderness over medial malleolus. Moves ankle with difficulty, secondary to pain. Non-tender peroneal tendons, with no evidence of peroneal subluxation. Mid-foot and forefoot joints have normal motion and are non-tender. Pedal pulses are 2+. Moves toes well. Non-tender Achilles tendon. Positive swelling, ecchymosis over the medial and lateral sides of the ankle. Sensation intact to light touch over dorsum, first dorsal web space, plantar aspect, and lateral heel region. Results - Labs Labs: Abnormal Lab Results - Last 24 Hours (Table) 09/04/21 09/04/21 09/05/21 Range/Units 12:20 17:17 07:06 POC Glucose (mg/dL) 74 L 69 L (75-99) mg/dL Urine Appearance Cloudy H (Clear) Urine Protein 2+ H (Negative) Urine Ketones 2+ H (Negative) Urine Blood Large H (Negative) Ur Leukocyte Esterase Small H (Negative) Urine RBC >182 H (0-5) /hpf Urine WBC 20 H (0-5) /hpf Urine Bacteria Rare H (None) /hpf Urine Mucus Rare H (None) /hpf H & H 09/03/21 09/04/21 Range/Units 20:19 06:36 Hgb 12.6 12.4 (11.4-16.0) gm/dL Hct 38.6 38.3 (34.0-46.0) % Coagulation 09/03/21 Range/Units 20:19 INR 1.0 (<1.2) Result Diagrams: 09/04/21 06:36 09/04/21 06:36 - Diagnostic results Ankle/Foot x-ray: image reviewed (Ankle x-rays of the right ankle dated 09/01/2021 reveal a minimally displaced bimalleolar fracture. Fracture alignment is satisfactory. Ankle mortise is intact. ) Assessment and Plan (1) UTI (urinary tract infection) Current Visit: Yes Status: Acute Code(s): N39.0 - URINARY TRACT INFECTION, SITE NOT SPECIFIED SNOMED Code(s): 41969431 (2) Ankle fracture, bimalleolar, closed Current Visit: No Status: Acute Code(s): S82.843A - DISPLACED BIMALLEOLAR FRACTURE OF UNSP LOWER LEG, INIT SNOMED Code(s): 54664134 (3) Fall Current Visit: No Status: Acute Code(s): W19.XXXA - UNSPECIFIED FALL, INITIAL ENCOUNTER SNOMED Code(s): 8280318 Plan: The clinical and x-ray findings were discussed with the patient. The case was discussed with Dr. Aguirre. A new well-padded splint was applied to the right ankle today. I encouraged her to ice and elevate the ankle. She is nonweightbearing to the right lower extremity. She can be discharged back to [facility] from an orthopedic standpoint. She will follow up in the office as an outpatient. We will sign off at this time.
[2021-09-05 11:12] LABS: Glucose,Whole Blood 91 mg/dL (75-99)
--- NOTE | 2021-09-05 13:28 | P.PN ---
<Ilda, - Last Filed: 09/05/21 13:16> Subjective Progress Note Date: 09/05/21 Principal diagnosis: Altered mental status Patient is a 66-year-old female who presented to the emergency room from [facility] for altered mental status, low-grade temp and difficulty breathing. Patient has a significant medical history that includes COPD, diabetes, fibromyalgia, GERD, hypertension, osteoarthritis, history of pulmonary embolism, recent bilateral lower extremity cellulitis, IBS, history of urinary tract infections with sepsis, anxiety, bipolar, depression, and thyroid disorder. Chest x-ray found some right pleural atelectasis which was not significantly different to last exam. CT of brain and C-spine found cerebral atrophy with no acute intracranial abnormality, Spondylitic mild changes in the cervical spine with no fracture. White count was elevated at 13.9. urine was positive for red and white blood cells, yeast budding and protein. Has history of urinary retent ion with a chronic indwelling catheter. Patient was admitted for possible UTI causing mental status changes. Infectious disease was consulted. Patient was seen and examined at bedside today, continues to be confused. Oriented to self, does not answer questions correctly, does not follow simple co mmands. The patient is very tearful and mumbling random words. Spoke with the Jose Eduardo, he states that the patient has been confused since last admission in July, and has been hallucinating at [facility]. He claims that she is lucid at times, but majority of the time is confused and talks to people that are not in the room. Patient does have a history of psychiatric disorders, psychiatry was consulted to review medications. Patient also had a fall on Wednesday, September 01 2021 at [facility]. Right ankle x-ray showed transverse fracture of the medial and lateral malleolus. Right ankle is wrapped, was [facility], consulted orthopedics to see patient while in hospital. White count improved to 11.4 today. Husain catheter was replaced. 09/05/2021 Patient was seen and examined at bedside. She was resting comfortably in bed, responded to touch. Oriented to self, continues to be confused. No complications overnight. Antibiotics were started for suspected UTI secondary to catheter insertion. We'll repeat blood work tomorrow morning. Urine culture pending. Awaiting psychiatry and orthopedic recommendations for treatment plan. Objective - Vital Signs Vital signs: Vital Signs Temp 98.1 F 09/05/21 11:10 Pulse 70 09/05/21 11:10 Resp 18 09/05/21 11:10 BP 163/77 09/05/21 11:10 Pulse Ox 95 09/05/21 11:10 Intake & Output 09/04/21 09/05/21 09/05/21 18:59 06:59 18:59 Output Total 550 1200 Balance -550 -1200 Output: Urine 550 1200 Uretheral (Husain) 600 Other: Voiding Method Indwelling Catheter Indwelling Catheter Indwelling Catheter - Constitutional General appearance: Present: cooperative, obese - EENT Eyes: Present: EOMI, PERRLA ENT: Present: normal oropharynx Ears: bilateral: normal - Neck Neck: Present: normal ROM Carotids: bilateral: upstroke normal - Respiratory Respiratory: bilateral: diminished - Cardiovascular Heart rate: 60 Rhythm: regular Heart sounds: normal: S1, S2 - Peripheral pulses radial pulse Peripheral Pulses: bilateral: Normal - Gastrointestinal General gastrointestinal: Present: normal bowel sounds, soft - Genitourinary Genitourinary Comment(s): Husain catheter in place - Neurologic Neurologic: Present: focal deficits - Musculoskeletal Musculoskeletal Comment(s): Right ankle cast Musculoskeletal: Present: generalized weakness - Psychiatric Psychiatric Comment(s): Oriented to self, persistent confusion - Allied health notes Allied health notes reviewed: nursing - Labs CBC & Chem 7: 09/04/21 06:36 09/04/21 06:36 Labs: Abnormal Lab Results - Last 24 Hours (Table) 09/04/21 09/04/21 09/05/21 Range/Units 12:20 17:17 07:06 POC Glucose (mg/dL) 74 L 69 L (75-99) mg/dL Urine Appearance Cloudy H (Clear) Urine Protein 2+ H (Negative) Urine Ketones 2+ H (Negative) Urine Blood Large H (Negative) Ur Leukocyte Esterase Small H (Negative) Urine RBC >182 H (0-5) /hpf Urine WBC 20 H (0-5) /hpf Urine Bacteria Rare H (None) /hpf Urine Mucus Rare H (None) /hpf Microbiology - Last 24 Hours (Table) 09/03/21 20:19 Urine Culture - Preliminary Urine,Clean Catch Gram Neg Bacilli Gram Neg Bacilli#2 Assessment and Plan Assessment: Altered mental status Probable urinary tract infection, culture pending leukocytosis Transverse fracture of right malleolus History of Bipolar disorder Urinary retention, chronic indwelling catheter Hypertension COPD without exacerbation, maintained on 4 L of oxygen Diabetes melitis, not on oral medication Anxiety History of GERD History of pulmonary embolism, on Lovenox DO NOT RESUSCITATE Plan: Continue following infectious disease recommendations for urinary tract infection Husain catheter was changed, new urine culture sent Psychiatry consultation for altered mental status, persistent confusion and hallucinations Recent ankle fracture, orthopedics consulted Sliding-scale insulin for glucose control Continue current medication regimen Continue to monitor vital signs and mental status Confirmed advanced directive with Further recommendations to come based on patient's clinical course Time with Patient: Greater than 30 <Andrzej Wheeler - Last Filed: 09/11/21 19:33> Subjective I have personally seen and examined the patient, reviewed the documentation and agree with the assessment and plan as written. Number of minutes spent on the visit: greater than 15. Objective - Vital Signs Vital signs: Vital Signs Temp 98.0 F 09/11/21 12:28 Pulse 72 09/11/21 19:11 Resp 18 09/11/21 12:28 BP 162/71 09/11/21 12:28 Pulse Ox 94 L 09/11/21 19:04 Intake & Output 09/11/21 09/11/21 09/12/21 06:59 18:59 06:59 Intake Total 720 Output Total 400 500 Balance -400 220 Intake: Oral 720 Output: Urine 400 500 Other: Voiding Method Indwelling Catheter Indwelling Catheter - Labs CBC & Chem 7: 09/11/21 06:22 09/11/21 06:22 Labs: Abnormal Lab Results - Last 24 Hours (Table) 09/10/21 09/11/21 09/11/21 Range/Units 20:21 06:22 06:22 WBC 10.82 H (4.50-10.00) X 10*3/uL RBC 3.61 L (4.10-5.20) X 10*6/uL Hgb 11.0 L (12.0-15.0) g/dL Hct 35.8 L (37.2-46.3) % MCV 99.2 H (80.0-97.0) fL MCHC 30.7 L (32.0-37.0) g/dL MPV 9.3 L (9.5-12.2) fL Carbon Dioxide 29.8 H (20.0-27.5) mmol/L Anion Gap 7.80 L (10.00-18.00) mmol/L Creatinine 0.5 L (0.6-1.5) mg/dL POC Glucose (mg/dL) 125 H (75-99) mg/dL 09/11/21 Range/Units 16:47 WBC (4.50-10.00) X 10*3/uL RBC (4.10-5.20) X 10*6/uL Hgb (12.0-15.0) g/dL Hct (37.2-46.3) % MCV (80.0-97.0) fL MCHC (32.0-37.0) g/dL MPV (9.5-12.2) fL Carbon Dioxide (20.0-27.5) mmol/L Anion Gap (10.00-18.00) mmol/L Creatinine (0.6-1.5) mg/dL POC Glucose (mg/dL) 106 H (75-99) mg/dL
--- NOTE | 2021-09-05 14:49 | P.CN ---
Psychiatric Consult - . Consult date: 09/05/21 Consult:: 09/05/21 14:18 Psychiatric consultation She was referred to the psychiatric CL for assessment of her confusion and hallucinations. I have reviwed her admission note andthe medical update progress. She was seen [id number] today in her private room after I had an update from the nursing staff regarding her confusion Chief Complaint: Confusion and Hallucinations HPI: I did not have the opportunity of validating her history from her . The admission note indicated she was living in the [facility] group home in the [place] area prior to the emergency admission. She volunteered she has been followed in the community by a psychiatrist who has retired recently. She did not want to elaborate on the nature of her bipolar disorder and indicated she seemed to have a very good rapport with her psychiatrist. She could not comment on her multiple medications she has been on for stabilizing on her mood. She did not have concern over her multiple medical problems documented in her current admission. She was not worrried over her falls triggering her admission resulting in her fracature of her ankle. She was seen by orthopedic surgeon who prescribed cast but no surgery was indicated. The nursing staff indicated she was demanding for her to visit her. She was confused regarding the place: She thought [facility] and not in the hospital. She demanded for her to have immediate and persistent access to her phone and was highly agitated at times when her demands were not met immediately. She was observed to be screaming at times; however, she was lucid and communicated with me readily, asking me to b ein touch with her immediately. She vaguely ruminated over the milieu and was endorsing wandering gaze in her immediate milieu. She recognized she was watching cartoon and she required further treatment . she did not pull out her IV fluid lines. Past medical history: As indicarted in her medical notes. MSK: Cervical disc disease/stenosis, scoliosis, Derm: cellulitis, past history of Pulmonary embolism, Recent fracture o f her lift ankle treated with cast positive urine clulture and query urosepsis in her recent admission . She was treated with antibiotic and no escslating of her urinary symptoms or urosepsis. history of UTI , rule out urosepsis Past psychosocial history: She not elaborate much on her relationship. She was demanding to be able to talk to her at all times when she was lying in the bed when I attempted to interview her. MSE: Full MSE has to await her confusion. She mis-identified the place but could give the name of season. intermittent restless, fully alert no drowsiness. slight-moderate psychomotor agitation. Lable affect thought congruent. Asfect; Moderately excited and highly irritable over her Falls in the home piror to her admission She was swinging her eyegaze acorss the room as if she was actively hallucinating . SHe denied any suicidla or homicidal ideaiton. Cognition : Oriented to time but not to place or people. not fully with people. No insight or judgment Diagnosis: acute deliruim related to UTI . no urosepsis yet to emerge. Bipolar disorder, most recentl episode mixed episode. Prodromal syndrome of Dementia; vascular subtype most likely with her cerebral atrophy as reviewed by imaging. rule out early Parkinsonian syndrome with gait imnstability. Drug-related delirium with her multiple psychotropic Rx; SSRI-induced deliriium and manic episode. 1. buspar 30 mg po bid clonazepam 0.5 mg po bid lamotrigine 100 mg po bid Deparkote ER 1500 mg p citaloprim 20 mg Recommendation Full work up for dementia; repeated CT /MRI anchor reality with light darkness cycle regulation in the room regular visit . no free ecess to phone Rx titration : citaloprim 10 mg reduced. divalproex reduced to 1000 mp po, lamotrigine continued at 100 mg po bid. start o nlow dosage of atypical antipsychotic 1.5 mg po continue on GABApentin 300 mg po bid for delirium Will follow pt. Cognitive testing to be conducted later
[2021-09-05] MEDS: ARIPiprazole 2 MG TAB PO SCH (15:02)
--- NOTE | 2021-09-05 15:37 | CDI ---
Documentation Clarification Form Date: 09/05/2021 02:55:24 PM From: Josseline Hamilton RN CCDS Admit Date: 09/03/2021 09:40:00 PM Patient Name: Haydee Mcpherson Visit Number: [id number] Discharge Date: ATTENTION: The Clinical Documentation Specialists (CDI) and [facility] Coding Staff appreciate your assistance in clarifying documentation. Please respond to the clarification below the line at the bottom and electronically sign. The CDI & [facility] Coding staff will review the response and follow-up if needed. Please note: Queries are made part of the Legal Health Record. If you have any questions, please contact the author of this message via ITS. Dr. Andrzej Wheeler Your patient has the documented symptom of Altered Mental Status 09/04, H&P and 09/05, Medicine progress note. Additional clarification regarding the etiology/cause of this symptom is requested. History/Risk Factors: 66-year-old female presents to the ED from [facility] for altered mental status, low grade temperature and difficulty breathing. Medical History: Urinary retention with chronic indwelling jennings catheter, bipolar disorder and COPD with 4L of oxygen. Medicine progress note, 09/05 Clinical Indicators: Medicine progress note, 09/05: Jennings catheter was changed Urine Culture 09/05: Gram Neg Bacilli #[address] 09/03: Cerebral atrophy Psychiatric Consult 09/05: Acute delirium related to UTI Treatment: 09/03 Cefepime HCI 2gm IVPB x 1; 09/04 current Cefepime HCI 2gm IVPB Q8HR. Please clarify the etiology of the symptom of Altered Mental Status: [ ] Metabolic Encephalopathy due to UTI [ ] Other condition (please specify) [ ] Unable to determine Answered on Medicine Progress note 09/06 " Altered mental status: Toxic metabolic encephalopathy related to UTI." Dr. Woods (Template Last Revised: August 2020) ESTIVEND
--- NOTE | 2021-09-05 15:52 | CDI ---
Documentation Clarification Form Date: 09/05/2021 03:38:46 PM From: Josseline Hamilton RN CCDS Admit Date: 09/03/2021 09:40:00 PM Patient Name: Haydee Mcpherson Visit Number: [id number] Discharge Date: ATTENTION: The Clinical Documentation Specialists (CDI) and [facility] Coding Staff appreciate your assistance in clarifying documentation. Please respond to the clarification below the line at the bottom and electronically sign. The CDI & [facility] Coding staff will review the response and follow-up if needed. Please note: Queries are made part of the Legal Health Record. If you have any questions, please contact the author of this message via ITS. Dr. Andrzej Wheeler Probable UTI is documented 09/04, H&P and 09/05, Medicine progress note and patient has chronic indwelling . Additional clarification regarding the etiology of the UTI is requested. History/Risk Factors: History/Risk Factors: 66-year-old female presents [facility] the ED from [facility] for altered mental status, low grade temperature and difficulty breathing. Medical History: Urinary retention with chronic indwelling jennings catheter, bipolar disorder and COPD with 4L of oxygen. Medicine progress note, 09/05 Clinical Indicators: Urinalysis, 09/03: Blood-large; Wbc >182; Leukocyte Esterase-Large; 09/04 Blood- large; Wbc >182; Leukocyte Esterase-small. Urine Culture, 09/05: Gram Neg Bacilli #2 Lab result, 08/03: Wbc 13.9; Neutrophils 10.5 Treatment: 09/03 Cefepime HCI 2gm IVPB x 1; 09/04 current Cefepime HCI 2gm IVPB Q8HR. Please clarify the etiology of the UTI, if known: [ ] UTI related to Jennings catheter [ ] UTI not related to catheter/urostomy [ ] Other condition, please specify [ ] Unable to determine Medicine progress note 09/10 Acute urinary tract infection, secondary to jennings catheter. Andrew DELGADO. Dr Wheeler (Template Last Revised: September 2020) [facility]
[2021-09-05 17:14] LABS: Glucose,Whole Blood 112 mg/dL (75-99)
[2021-09-05 20:34] LABS: Glucose,Whole Blood 103 mg/dL (75-99)
[2021-09-05] MEDS: MONTELUKAST 10 MG TAB PO SCH (22:00)
--- NOTE | 2021-09-05 23:43 | P.PN ---
Subjective Progress Note Date: 09/05/21 Principal diagnosis: Catheter associated urinary tract infection Patient is a 66-year-old female with recent right ankle fracture for the patient is in splint admitted from the local senior care with mental status changes and concern for urinary tract infection catheter associated. On today's evaluation that is 09/05/2021, the patient denies having any fever or any chills, the patient is more awake and alert today patient denies any headache no chest pain shortness of breath or cough no abdominal pain no diarrhea Objective - Vital Signs Vital signs: Vital Signs Temp 98.1 F 09/05/21 11:10 Pulse 70 09/05/21 11:10 Resp 18 09/05/21 11:10 BP 163/77 09/05/21 11:10 Pulse Ox 95 09/05/21 11:10 Intake & Output 09/04/21 09/05/21 09/05/21 18:59 06:59 18:59 Output Total 550 1200 Balance -550 -1200 Output: Urine 550 1200 Uretheral (Husain) 600 Other: Voiding Method Indwelling Catheter Indwelling Catheter Indwelling Catheter - Exam GENERAL DESCRIPTION: A middle-age female lying in bed in no distress RESPIRATORY SYSTEM: Unlabored breathing , decreased breath sounds at bases HEART: S1 S2 regular rate and rhythm , ABDOMEN: Soft , no tenderness EXTREMITIES: Right leg is currently covered with a cast - Labs CBC & Chem 7: 09/04/21 06:36 09/04/21 06:36 Labs: Abnormal Lab Results - Last 24 Hours (Table) 09/04/21 09/05/21 Range/Units 17:17 07:06 POC Glucose (mg/dL) 74 L 69 L (75-99) mg/dL Microbiology - Last 24 Hours (Table) 09/03/21 20:19 Urine Culture - Preliminary Urine,Clean Catch Gram Neg Bacilli Gram Neg Bacilli#2 Assessment and Plan (1) UTI (urinary tract infection) Current Visit: Yes Status: Acute Code(s): N39.0 - URINARY TRACT INFECTION, SITE NOT SPECIFIED SNOMED Code(s): 86822128 Plan: 1-Patient presented to hospital with mental status changes patient did have a low-grade fever elevated white count source likely catheter associated tract infection likely from enteric gram-negative pathogen patient being a senior care resident we need to cover for resistant gram-negative. Patient to continue with cefepime 2 g every 8 hours while awaiting for the culture to finalize. Time with Patient: Less than 30
[2021-09-06] MEDS: CEFEPIME 2 GM in SODIUM CHLORIDE 0.9% 100 ML IVPB SCH ×3 (00:23→17:21)
[2021-09-06] MEDS: LEVOTHYROXINE 75 MCG TAB PO SCH (06:19)
[2021-09-06 07:26] LABS: Glucose,Whole Blood 80 mg/dL (75-99)
[2021-09-06] MEDS: ALBUTEROL NEBULIZED 2.5 MG/3 ML INHALATION SCH ×3 (07:35→19:40)
[2021-09-06] MEDS: SYMBICORT 160-4.5 MCG INHALER INHALATION SCH ×2 (07:35→19:40)
[2021-09-06] MEDS: INSULIN ASPART (NovoLOG) 100 UNIT/ML VIAL SQ SCH ×4 (07:53→22:11)
[2021-09-06 08:58] LABS: Basophils # (A) 0.06 X 10*3/uL (0.00-0.10); Basophils % (A) 0.8 %; Eosinophils # (A) 0.41 X 10*3/uL (0.04-0.35); Eosinophils % (A) 5.3 %; HCT 37.5 % (37.2-46.3); HGB 11.9 g/dL (12.0-15.0); Lymphocytes # (A) 1.64 X 10*3/uL (0.90-5.00); Lymphocytes % (A) 21.2 %; MCH 30.5 pg (27.0-32.0); MCHC 31.7 g/dL (32.0-37.0); MCV 96.2 fL (80.0-97.0); Mean Platelet Volume 9.8 fL (9.5-12.2); Monocytes # (A) 1.19 X 10*3/uL (0.20-1.00); Monocytes % (A) 15.4 %; NRBC Per 100 WBC 0 /100 WBCS (0.0-0.0); Neutrophils # (A) 4.36 X 10*3/uL (1.80-7.70); Neutrophils % (A) 56.3 %; Platelet Count 147 X 10*3/uL (140-440); RDW 13.2 % (11.5-14.5); WBC 7.74 X 10*3/uL (4.50-10.00)
[2021-09-06] MEDS: ARIPiprazole 2 MG TAB PO SCH ×2 (09:04)
[2021-09-06] MEDS: clonazePAM 0.5 MG TAB PO SCH ×2 (09:05→17:20)
[2021-09-06] MEDS: lisinopriL 20 MG TAB PO SCH (09:05)
[2021-09-06] MEDS: FAMOTIDINE 20 MG TAB PO SCH ×2 (09:05→17:20)
[2021-09-06] MEDS: busPIRone HCl 10 MG TAB PO SCH ×2 (09:05→22:11)
[2021-09-06 09:06] LABS: African American GFR (CKD) 111.6 (60.0-200.0); Anion Gap 8.3 mmol/L (10.00-18.00); BUN/Creat Ratio 16.67 Ratio (12.00-20.00); Calcium 8.9 mg/dL (8.7-10.3); Carbon Dioxide 30.7 mmol/L (20.0-27.5); Non-African American GFR(CKD) 96.3 (60.0-200.0); Potassium 3.3 mmol/L (3.5-5.5)
[2021-09-06] MEDS: DIVALPROEX ER 500 MG TAB.ER.24H PO SCH (09:06)
[2021-09-06] MEDS: lamoTRIgine 100 MG TAB PO SCH ×2 (09:06→22:11)
[2021-09-06] MEDS: GABAPENTIN 300 MG CAP PO SCH ×2 (09:06→22:11)
[2021-09-06] MEDS: ENOXAPARIN 60 MG/0.6 ML SYRINGE SQ SCH (09:07)
[2021-09-06] MEDS: amLODIPine 5 MG TAB PO SCH (09:07)
[2021-09-06] MEDS: NICOTINE 14MG/24HR PATCH TRANSDERM SCH (09:07)
[2021-09-06] MEDS: CITALOPRAM HYDROBROMIDE 10 MG TAB PO SCH (09:07)
[2021-09-06] MEDS: DEXTROSE 5%-0.9% NACL 1,000 ML IV SCH (09:33)
[2021-09-06 12:35] LABS: Glucose,Whole Blood 114 mg/dL (75-99)
[2021-09-06] MEDS ORDERED: POTASSIUM CHLORIDE ER 20 MEQ TAB.ER PO STA (17:05)
[2021-09-06 17:29] LABS: Glucose,Whole Blood 104 mg/dL (75-99)
[2021-09-06 20:10] LABS: Glucose,Whole Blood 101 mg/dL (75-99)
--- NOTE | 2021-09-06 21:37 | P.PN ---
Subjective Progress Note Date: 09/06/21 66-year-old female with recent right ankle fracture for the patient is in splint admitted from the local skilled nursing with mental status changes and concern for urinary tract infection catheter associated. On today's evaluation that is 09/05/2021, the patient denies having any fever or any chills, the patient is more awake and alert today patient denies any headache no chest pain shortness of breath or cough no abdominal pain no diarrhea Objective - Vital Signs Vital signs: Vital Signs Temp 98.1 F 09/06/21 12:32 Pulse 69 09/06/21 12:32 Resp 21 09/06/21 12:32 BP 158/52 09/06/21 12:32 Pulse Ox 96 09/06/21 12:32 Intake & Output 09/05/21 09/06/21 09/06/21 18:59 06:59 18:59 Output Total 800 800 800 Balance -800 -800 -800 Output: Urine 800 800 800 Other: Voiding Method Indwelling Catheter Indwelling Catheter Indwelling Catheter # Bowel Movements 1 1 - Exam - Constitutional General appearance: Present: average body habitus, cooperative, no acute distress - EENT Eyes: Present: anicteric sclerae, EOMI, PERRLA, normal appearance ENT: Present: hearing grossly normal, normal oropharynx Ears: bilateral: normal - Neck Neck: Present: normal ROM. Absent: lymphadenopathy, rigidity, thyromegaly Carotids: negative: bruit present Thyroid: bilateral: normal size, negative: enlarged, nodule - Respiratory Respiratory: bilateral: CTA, negative: rales, rhonchi, wheezing - Cardiovascular Rhythm: regular Heart sounds: normal: S1, S2 Abnormal Heart Sounds: Absent: systolic murmur, diastolic murmur - Gastrointestinal General gastrointestinal: Present: normal bowel sounds, soft. Absent: distended, organomegaly, tenderness - Genitourinary Genitourinary Comment(s): deferred - Integumentary Integumentary: Present: normal turgor. Absent: jaundiced, rash, ulcer - Neurologic Neurologic: Present: CNII-XII intact. Absent: focal deficits - Musculoskeletal Musculoskeletal: Present: gait normal, strength equal bilaterally - Psychiatric Psychiatric: Present: A&O x's 3, appropriate affect, intact judgment & insight - Labs CBC & Chem 7: 09/06/21 06:07 09/06/21 06:07 Labs: Abnormal Lab Results - Last 24 Hours (Table) 09/05/21 09/05/21 09/06/21 Range/Units 17:12 20:31 06:07 RBC 3.90 L (4.10-5.20) X 10*6/uL Hgb 11.9 L (12.0-15.0) g/dL MCHC 31.7 L (32.0-37.0) g/dL Immature Gran # 0.08 H (0.00-0.04) X 10*3/uL Monocytes # 1.19 H (0.20-1.00) X 10*3/uL Eosinophils # 0.41 H (0.04-0.35) X 10*3/uL Potassium (3.5-5.5) mmol/L Carbon Dioxide (20.0-27.5) mmol/L Anion Gap (10.00-18.00) mmol/L POC Glucose (mg/dL) 112 H 103 H (75-99) mg/dL 09/06/21 09/06/21 Range/Units 06:07 12:33 RBC (4.10-5.20) X 10*6/uL Hgb (12.0-15.0) g/dL MCHC (32.0-37.0) g/dL Immature Gran # (0.00-0.04) X 10*3/uL Monocytes # (0.20-1.00) X 10*3/uL Eosinophils # (0.04-0.35) X 10*3/uL Potassium 3.3 L (3.5-5.5) mmol/L Carbon Dioxide 30.7 H (20.0-27.5) mmol/L Anion Gap 8.30 L (10.00-18.00) mmol/L POC Glucose (mg/dL) 114 H (75-99) mg/dL Microbiology - Last 24 Hours (Table) 09/03/21 20:19 Urine Culture - Preliminary Urine,Clean Catch Enterobacter aerogenes Gram Neg Bacilli Assessment and Plan Assessment: 1. Altered mental status; toxic metabolic encephalopathy related to UTI 2. Urinary tract infection; culture pending; ID on board and recommending to continue with current antibiotics 3. Transverse fracture of right malleolus; orthopedic surgery on board; new right ankle splint is applied; recommending to continue to elevate ankle and apply ice; patient remains nonweightbearing to right lower extremity 4. History of Bipolar disorder 5. Urinary retention, chronic indwelling catheter 6. Hypertension 7. COPD without exacerbation, maintained on 4 L of oxygen 8. Diabetes melitis, not on oral medication; monitor Accu-Cheks every before meals and at bedtime with insulin sliding scale DVT prophylaxis; SCDs/subcu Lovenox CODE STATUS DO NOT RESUSCITATE
[2021-09-06] MEDS: MONTELUKAST 10 MG TAB PO SCH (22:11)
[2021-09-07] MEDS: CEFEPIME 2 GM in SODIUM CHLORIDE 0.9% 100 ML IVPB SCH ×4 (00:11→23:59)
[2021-09-07] MEDS: LEVOTHYROXINE 75 MCG TAB PO SCH (06:17)
[2021-09-07 07:27] LABS: Glucose,Whole Blood 80 mg/dL (75-99)
[2021-09-07] MEDS: INSULIN ASPART (NovoLOG) 100 UNIT/ML VIAL SQ SCH ×4 (07:29→21:24)
[2021-09-07] MEDS: CITALOPRAM HYDROBROMIDE 10 MG TAB PO SCH (07:42)
[2021-09-07] MEDS: amLODIPine 5 MG TAB PO SCH (07:42)
[2021-09-07] MEDS: lamoTRIgine 100 MG TAB PO SCH ×2 (07:43→21:24)
[2021-09-07] MEDS: GABAPENTIN 300 MG CAP PO SCH ×2 (07:43→21:24)
[2021-09-07] MEDS: FAMOTIDINE 20 MG TAB PO SCH ×2 (07:43→16:42)
[2021-09-07] MEDS: clonazePAM 0.5 MG TAB PO SCH ×2 (07:43→16:42)
[2021-09-07] MEDS: ENOXAPARIN 60 MG/0.6 ML SYRINGE SQ SCH (07:43)
[2021-09-07] MEDS: NICOTINE 14MG/24HR PATCH TRANSDERM SCH (07:44)
[2021-09-07] MEDS: DIVALPROEX ER 500 MG TAB.ER.24H PO SCH (07:44)
[2021-09-07] MEDS: lisinopriL 20 MG TAB PO SCH (07:44)
[2021-09-07] MEDS: ARIPiprazole 2 MG TAB PO SCH ×2 (07:44)
[2021-09-07] MEDS: DEXTROSE 5%-0.9% NACL 1,000 ML IV SCH ×2 (08:01→13:48)
[2021-09-07] MEDS: busPIRone HCl 10 MG TAB PO SCH ×2 (08:09→21:24)
[2021-09-07] MEDS: SYMBICORT 160-4.5 MCG INHALER INHALATION SCH ×2 (08:38→19:50)
[2021-09-07] MEDS: ALBUTEROL NEBULIZED 2.5 MG/3 ML INHALATION SCH ×3 (08:38→19:50)
[2021-09-07 11:40] LABS: African American GFR (CKD) >90 (>60 ml/min/1.73 sqM); Anion Gap 1 mmol/L; Basophils # (A) 0.1 k/uL (0-0.2); Basophils % (A) 1 %; Blood Urea Nitrogen 7 mg/dL (7-17); Calcium 9.2 mg/dL (8.4-10.2); Carbon Dioxide 34 mmol/L (22-30); Chloride 101 mmol/L (98-107); Eosinophils # (A) 0.5 k/uL (0-0.7); Eosinophils % (A) 6 %; Glucose 93 mg/dL (74-99); HCT 38.6 % (34.0-46.0); HGB 12.3 gm/dL (11.4-16.0); Lymphocytes % (A) 24 %; MCH 31.5 pg (25.0-35.0); MCHC 31.9 g/dL (31.0-37.0); MCV 98.7 fL (80.0-100.0); Mean Platelet Volume 7.1; Monocytes % (A) 13 %; Neutrophils # (A) 4.4 k/uL (1.3-7.7); Neutrophils % (A) 54 %; Non-African American GFR(CKD) >90 (>60 ml/min/1.73 sqM); Platelet Count 183 k/uL (150-450); Potassium 3.4 mmol/L (3.5-5.1); RBC 3.92 m/uL (3.80-5.40); RDW 13.1 % (11.5-15.5); Sodium 136 mmol/L (137-145); WBC 8.2 k/uL (3.8-10.6)
--- NOTE | 2021-09-07 12:01 | P.PN ---
Subjective Progress Note Date: 09/07/21 Principal diagnosis: Altered mental status Toxic metabolic encephalopathy related to UTI Complicated UTI 66-year-old female with recent right ankle fracture for the patient is in splint admitted from the local [facility] with mental status changes and concern for urinary tract infection catheter associated. On today's evaluation that is 09/05/2021, the patient denies having any fever or any chills, the patient is more awake and alert today patient denies any head ache no chest pain shortness of breath or cough no abdominal pain no diarrhea 09/07/2021 Patient is seen and evaluated in room at bedside; discussed with nursing staff; no specific complaints Vital signs are reviewed and reveal temperature of 98.6, pulse 71,and 19 and blood pressure 145/80 Labs are reviewed, to be received 0.2, hemoglobin 12.3, hematocrit 30.6 and platelet count of 183, sodium 136, potassium 3.4, BUN/creatinine 7/0.58 We will supplement potassium per potassium protocol; continue to monitor electrolytes Final urine culture reveals Pseudomonas and Enterobacter aerogenes; patient is currently on IV cefepime; both organisms revealed sensitivity to cefepime ID on board; await further tailoring of antibiotic therapy Objective - Vital Signs Vital signs: Vital Signs Temp 98.2 F 09/07/21 05:00 Pulse 76 09/07/21 08:49 Resp 19 09/07/21 05:00 BP 145/80 09/07/21 07:51 Pulse Ox 96 09/07/21 05:00 Intake & Output 09/06/21 09/07/21 09/07/21 18:59 06:59 18:59 Intake Total 240 590 Output Total 1999 1200 Balance -1760 -610 Intake: Oral 240 590 Output: Urine 1999 1200 Other: Voiding Method Indwelling Catheter Indwelling Catheter # Voids 2 # Bowel Movements 1 - Exam - Constitutional General appearance: Present: average body habitus, cooperative, no acute distress - EENT Eyes: Present: anicteric sclerae, EOMI, PERRLA, normal appearance ENT: Present: hearing grossly normal, normal oropharynx Ears: bilateral: normal - Neck Neck: Present: normal ROM. Absent: lymphadenopathy, rigidity, thyromegaly Carotids: negative: bruit present Thyroid: bilateral: normal size, negative: enlarged, nodule - Respiratory Respiratory: bilateral: CTA, negative: rales, rhonchi, wheezing - Cardiovascular Rhythm: regular Heart sounds: normal: S1, S2 Abnormal Heart Sounds: Absent: systolic murmur, diastolic murmur - Gastrointestinal General gastrointestinal: Present: normal bowel sounds, soft. Absent: distended, organomegaly, tenderness - Genitourinary Genitourinary Comment(s): deferred - Integumentary Integumentary: Present: normal turgor. Absent: jaundiced, rash, ulcer - Neurologic Neurologic: Present: CNII-XII intact. Absent: focal deficits - Musculoskeletal Musculoskeletal: Present: gait normal, strength equal bilaterally - Psychiatric Psychiatric: Present: A&O x's 3, appropriate affect, intact judgment & insight - Labs CBC & Chem 7: 09/07/21 11:03 09/07/21 11:03 Labs: Abnormal Lab Results - Last 24 Hours (Table) 09/06/21 09/06/21 09/06/21 Range/Units 12:33 17:28 20:09 POC Glucose (mg/dL) 114 H 104 H 101 H (75-99) mg/dL Microbiology - Last 24 Hours (Table) 09/03/21 20:19 Urine Culture - Preliminary Urine,Clean Catch Enterobacter aerogenes Gram Neg Bacilli Assessment and Plan Assessment: 1. Altered mental status; toxic metabolic encephalopathy related to UTI 2. Urinary tract infection; culture pending; ID on board and recommending to continue with current antibiotics 3. Transverse fracture of right malleolus; orthopedic surgery on board; new right ankle splint is applied; recommending to continue to elevate ankle and apply ice; patient remains nonweightbearing to right lower extremity 4. History of Bipolar disorder 5. Urinary retention, chronic indwelling catheter 6. Hypertension 7. COPD without exacerbation, maintained on 4 L of oxygen 8. Diabetes melitis, not on oral medication; monitor Accu-Cheks every before meals and at bedtime with insulin sliding scale DVT prophylaxis; SCDs/subcu Lovenox CODE STATUS DO NOT RESUSCITATE
[2021-09-07 12:42] LABS: Glucose,Whole Blood 95 mg/dL (75-99)
[2021-09-07 17:23] LABS: Glucose,Whole Blood 113 mg/dL (75-99)
[2021-09-07 20:12] LABS: Glucose,Whole Blood 100 mg/dL (75-99)
[2021-09-07] MEDS: MONTELUKAST 10 MG TAB PO SCH (21:24)
--- NOTE | 2021-09-07 23:16 | P.PN ---
Subjective Progress Note Date: 09/06/21 Principal diagnosis: Catheter associated urinary tract infection Patient is a 66-year-old female with recent right ankle fracture for the patient is in splint admitted from the local [facility] with mental status changes and concern for urinary tract infection catheter associated. On today's evaluation that is 09/06/2021, the patient remains to be afebrile, the patient is awake and alert, the patient denies any headache no chest pain shortness of breath or cough no abdominal pain no diarrhea Objective - Vital Signs Vital signs: Vital Signs Temp 97.8 F 09/06/21 05:00 Pulse 80 09/06/21 11:59 Resp 20 09/06/21 09:00 BP 156/80 09/06/21 09:03 Pulse Ox 95 09/06/21 05:00 Intake & Output 09/05/21 09/06/21 09/06/21 18:59 06:59 18:59 Output Total 800 800 800 Balance -800 -800 -800 Output: Urine 800 800 800 Other: Voiding Method Indwelling Catheter Indwelling Catheter Indwelling Catheter # Bowel Movements 1 1 - Exam GENERAL DESCRIPTION: A middle-age female lying in bed in no distress RESPIRATORY SYSTEM: Unlabored breathing , decreased breath sounds at bases HEART: S1 S2 regular rate and rhythm , ABDOMEN: Soft , no tenderness EXTREMITIES: Right leg is currently covered with a cast - Labs CBC & Chem 7: 09/07/21 11:03 09/07/21 11:03 Labs: Abnormal Lab Results - Last 24 Hours (Table) 09/05/21 09/05/21 09/06/21 Range/Units 17:12 20:31 06:07 RBC 3.90 L (4.10-5.20) X 10*6/uL Hgb 11.9 L (12.0-15.0) g/dL MCHC 31.7 L (32.0-37.0) g/dL Immature Gran # 0.08 H (0.00-0.04) X 10*3/uL Monocytes # 1.19 H (0.20-1.00) X 10*3/uL Eosinophils # 0.41 H (0.04-0.35) X 10*3/uL Potassium (3.5-5.5) mmol/L Carbon Dioxide (20.0-27.5) mmol/L Anion Gap (10.00-18.00) mmol/L POC Glucose (mg/dL) 112 H 103 H (75-99) mg/dL 09/06/21 09/06/21 Range/Units 06:07 12:33 RBC (4.10-5.20) X 10*6/uL Hgb (12.0-15.0) g/dL MCHC (32.0-37.0) g/dL Immature Gran # (0.00-0.04) X 10*3/uL Monocytes # (0.20-1.00) X 10*3/uL Eosinophils # (0.04-0.35) X 10*3/uL Potassium 3.3 L (3.5-5.5) mmol/L Carbon Dioxide 30.7 H (20.0-27.5) mmol/L Anion Gap 8.30 L (10.00-18.00) mmol/L POC Glucose (mg/dL) 114 H (75-99) mg/dL Microbiology - Last 24 Hours (Table) 09/03/21 20:19 Urine Culture - Preliminary Urine,Clean Catch Enterobacter aerogenes Gram Neg Bacilli Assessment and Plan (1) UTI (urinary tract infection) Current Visit: Yes Status: Acute Code(s): N39.0 - URINARY TRACT INFECTION, SITE NOT SPECIFIED SNOMED Code(s): 93091149 Plan: 1-Patient presented to hospital with mental status changes patient did have a low-grade fever elevated white count source likely catheter associated tract infection likely from enteric gram-negative pathogen patient being a [facility] resident we need to cover for resistant gram-negative. Urine showing Enterobacter sensitive to cefepime, Patient to continue with cefepime 2 g every 8 hours Time with Patient: Less than 30
--- NOTE | 2021-09-07 23:17 | P.PN ---
Subjective Progress Note Date: 09/07/21 Principal diagnosis: Catheter associated urinary tract infection Patient is a 66-year-old female with recent right ankle fracture for the patient is in splint admitted [facility] the local [facility] with mental status changes and concern for urinary tract infection catheter associated. On today's evaluation that is 09/07/2021, the patient denies any fever or any chills, the patient denies any headache no chest pain shortness of breath or cough , the patient denies abdominal pain no diarrhea Objective - Vital Signs Vital signs: Vital Signs Temp 98.4 F 09/07/21 20:29 Pulse 71 09/07/21 20:29 Resp 16 09/07/21 20:29 BP 156/71 09/07/21 21:35 Pulse Ox 97 09/07/21 20:29 Intake & Output 09/07/21 09/07/21 09/08/21 06:59 18:59 06:59 Intake Total 590 940 Output Total 1200 800 Balance -610 140 Intake: Intake, IV Titration 700 Amount Cefepime 2 gm In Sodium 100 Chloride 0.9% 100 ml @ 25 mls/hr IVPB Q8HR [facility] Rx# :[id number] Dextrose 5%-0.9% NaCl 1, 600 000 ml @ 75 mls/hr IV . [id number] Rx#:[id number] Oral 590 240 Output: Urine 1200 800 Other: Voiding Method Indwelling Catheter Indwelling Catheter Indwelling Catheter # Voids 2 2 - Exam GENERAL DESCRIPTION: A middle-age female lying in bed in no distress RESPIRATORY SYSTEM: Unlabored breathing , decreased breath sounds at bases HEART: S1 S2 regular rate and rhythm , ABDOMEN: Soft , no tenderness EXTREMITIES: Right leg is currently covered with a cast - Labs CBC & Chem 7: 09/07/21 11:03 09/07/21 11:03 Labs: Abnormal Lab Results - Last 24 Hours (Table) 09/07/21 09/07/21 09/07/21 Range/Units 11:03 17:19 20:06 Sodium 136 L (137-145) mmol/L Potassium 3.4 L (3.5-5.1) mmol/L Carbon Dioxide 34 H (22-30) mmol/L POC Glucose (mg/dL) 113 H 100 H (75-99) mg/dL Microbiology - Last 24 Hours (Table) 09/03/21 20:19 Urine Culture - Final Urine,Clean Catch Enterobacter aerogenes Pseudomonas aeruginosa Assessment and Plan (1) UTI (urinary tract infection) Current Visit: Yes Status: Acute Code(s): N39.0 - URINARY TRACT INFECTION, SITE NOT SPECIFIED SNOMED Code(s): 22802247 Plan: 1-Patient presented to hospital with mental status changes patient did have a low-grade fever elevated white count source likely catheter associated tract infection likely from enteric gram-negative pathogen patient being a [facility] resident we need to cover for resistant gram-negative. Urine showing Enterobacter and Pseudomonas sensitive to cefepime, Pseudomonas is resistant to Cipro, Patient to continue with cefepime 2 g every 8 hours , patient will need to continue IV cefepime for about a week on discharge to finish a course of therapy Time with Patient: Less than 30
[2021-09-08] MEDS: DEXTROSE 5%-0.9% NACL 1,000 ML IV SCH ×2 (05:58→14:03)
[2021-09-08] MEDS: LEVOTHYROXINE 88 MCG TAB PO SCH (05:58)
[2021-09-08 07:00] LABS: Glucose,Whole Blood 77 mg/dL (75-99)
[2021-09-08] MEDS: NICOTINE 14MG/24HR PATCH TRANSDERM SCH (08:35)
[2021-09-08] MEDS: busPIRone HCl 10 MG TAB PO SCH ×2 (08:35→20:37)
[2021-09-08] MEDS: GABAPENTIN 300 MG CAP PO SCH ×2 (08:36→20:38)
[2021-09-08] MEDS: CITALOPRAM HYDROBROMIDE 10 MG TAB PO SCH (08:36)
[2021-09-08] MEDS: clonazePAM 0.5 MG TAB PO SCH ×2 (08:36→17:24)
[2021-09-08] MEDS: amLODIPine 5 MG TAB PO SCH (08:36)
[2021-09-08] MEDS: FAMOTIDINE 20 MG TAB PO SCH ×2 (08:36→17:24)
[2021-09-08] MEDS: lamoTRIgine 100 MG TAB PO SCH ×2 (08:37→20:38)
[2021-09-08] MEDS: lisinopriL 20 MG TAB PO SCH (08:37)
[2021-09-08] MEDS: ARIPiprazole 2 MG TAB PO SCH ×2 (08:38→08:41)
[2021-09-08] MEDS: ENOXAPARIN 60 MG/0.6 ML SYRINGE SQ SCH (08:39)
[2021-09-08] MEDS: CEFEPIME 2 GM in SODIUM CHLORIDE 0.9% 100 ML IVPB SCH ×3 (08:39→23:32)
[2021-09-08] MEDS: DIVALPROEX ER 500 MG TAB.ER.24H PO SCH (08:46)
[2021-09-08] MEDS: INSULIN ASPART (NovoLOG) 100 UNIT/ML VIAL SQ SCH ×4 (08:46→21:15)
[2021-09-08] MEDS: ALBUTEROL NEBULIZED 2.5 MG/3 ML INHALATION SCH ×3 (09:13→19:40)
[2021-09-08] MEDS: SYMBICORT 160-4.5 MCG INHALER INHALATION SCH ×2 (09:13→16:01)
[2021-09-08 11:26] LABS: Glucose,Whole Blood 97 mg/dL (75-99)
[2021-09-08] MEDS ORDERED: DIVALPROEX ER 500 MG TAB.ER.24H PO ONE (15:45)
--- NOTE | 2021-09-08 16:23 | P.PN ---
Subjective Progress Note Date: 09/08/21 Altered mental status Toxic metabolic encephalopathy related to UTI Complicated UTI 66-year-old female with recent right ankle fracture for the patient is in splint admitted from the local skilled nursing with mental status changes and concern for urinary tract infection catheter associated. On today's evaluation that is 09/05/2021, the patient denies having any fever or any chills, the patient is more awake and alert today patient denies any headache no chest pain shortness of breath or cough no abdominal pain no diarrhea 09/07/2021 Patient is seen and evaluated in room at bedside; discussed with nursing staff; no specific complaints Vital signs are reviewed and reveal temperature of 98.6, pulse 71,and 19 and blood pressure 145/80 Labs are reviewed, to be received 0.2, hemoglobin 12.3, hematocrit 30.6 and platelet count of 183, sodium 136, potassium 3.4, BUN/creatinine 7/0.58 We will supplement potassium per potassium protocol; continue to monitor electrolytes Final urine culture reveals Pseudomonas and Enterobacter aerogenes; patient is currently on IV cefepime; both organisms revealed sensitivity to cefepime ID on board; await further tailoring of antibiotic therapy 09/08/2021 Patient is seen and evaluated and follow-up currently being closely monitored and continues on IV cefepime with infectious disease following closely. Urine cultures finalizing showing Pseudomonas and Enterobacter and will need to discuss with infectious disease about requiring IV antibiotics on discharge. Patient continues to have confusion and is tearful on exam. Patient is afebrile. Patient denies any chest pain or shortness of breath. Patient encouraged to increase activity as tolerated. Encouraged increase activity and will have PT/OT therapy evaluate the patient. Also ECF being planned today. Review of systems: Unable to obtain as patient is confused All medications have been reviewed Active Medications Acetaminophen (Acetaminophen Tab 325 Mg Tab) 650 mg PO Q6HR PRN PRN Reason: Mild Pain or Fever > 100.5 Last Admin: 09/05/21 09:34 Dose: 650 mg Documented by: Albuterol Sulfate (Albuterol Nebulized 2.5 Mg/3 Ml) 2.5 mg INHALATION RT-T ID@06,14,21 [facility] Last Admin: 09/08/21 12:05 Dose: Not Given Documented by: Albuterol Sulfate (Albuterol Nebulized 2.5 Mg/3 Ml) 2.5 mg INHALATION RT-Q6H PRN PRN Reason: Shortness Of Breath Amlodipine Besylate (Amlodipine 5 Mg Tab) 5 mg PO DAILY@0800 [facility] Last Admin: 09/08/21 08:36 Dose: 5 mg Documented by: Budesonide/Formoterol Fumarate (Symbicort 160-4.5 Mcg Inhaler) 2 puff INHALATION RT-BID@0800,1700 [facility] Last Admin: 09/08/21 16:01 Dose: Not Given Documented by: Buspirone HCl (Buspirone Hcl 10 Mg Tab) 30 mg PO BID@0800,2100 [facility] Last Admin: 09/08/21 08:35 Dose: 30 mg Documented by: Clonazepam (Clonazepam 0.5 Mg Tab) 0.5 mg PO BID@0800,1700 [facility] Last Admin: 09/08/21 08:36 Dose: 0.5 mg Documented by: Divalproex Sodium (Divalproex Er 500 Mg Tab.Er.24h) 1,500 mg PO DAILY [facility] Enoxaparin Sodium (Enoxaparin 60 Mg/0.6 Ml Syringe) 60 mg SQ DAILY@0800 [facility] Last Admin: 09/08/21 08:39 Dose: 60 mg Documented by: Famotidine (Famotidine 20 Mg Tab) 20 mg PO BID@0800,1700 [facility] Last Admin: 09/08/21 08:36 Dose: 20 mg Documented by: Gabapentin (Gabapentin 300 Mg Cap) 300 mg PO BID@0800,2100 [facility] Last Admin: 09/08/21 08:36 Dose: 300 mg Documented by: Cefepime HCl 2 gm/ Sodium (Chloride) 100 mls @ 25 mls/hr IVPB Q8HR [facility] Last Admin: 09/08/21 08:39 Dose: 25 mls/hr Documented by: Dextrose/Sodium Chloride (Dextrose 5%-Ns Iv Soln) 1,000 mls @ 75 mls/hr IV .[id number] [facility] Last Admin: 09/08/21 14:03 Dose: 75 mls/hr Documented by: Insulin Aspart (Insulin Aspart (Novolog) 100 Unit/Ml Vial) 0 unit SQ ACHS [facility]; Protocol Last Admin: 09/08/21 12:31 Dose: Not Given Documented by: Lamotrigine (Lamotrigine 100 Mg Tab) 100 mg PO BID@0800,2100 [facility] Last Admin: 09/08/21 08:37 Dose: 100 mg Documented by: Levothyroxine Sodium (Levothyroxine 75 Mcg Tab) 150 mcg PO SUTHFRSA@0600 [facility] Last Admin: 09/07/21 06:17 Dose: 150 mcg Documented by: Levothyroxine Sodium (Levothyroxine 88 Mcg Tab) 176 mcg PO MOTUWE@0600 [facility] Last Admin: 09/08/21 05:58 Dose: 176 mcg Documented by: Lisinopril (Lisinopril 20 Mg Tab) 20 mg PO DAILY@0800 [facility] Last Admin: 09/08/21 08:37 Dose: 20 mg Documented by: Montelukast Sodium (Montelukast 10 Mg Tab) 10 mg PO HS [facility] Last Admin: 09/07/21 21:24 Dose: 10 mg Documented by: Naloxone HCl (Naloxone 0.4 Mg/Ml 1 Ml Vial) 0.2 mg IV Q2M PRN PRN Reason: Opioid Reversal Nicotine (Nicotine 14mg/24hr Patch) 1 patch TRANSDERM DAILY@08 [facility] Last Admin: 09/08/21 08:35 Dose: 1 patch Documented by: Olanzapine (Olanzapine 7.5 Mg Tab) 7.5 mg PO BID [facility] Ondansetron HCl (Ondansetron 4 Mg/2 Ml Vial) 4 mg IVP Q8HR PRN PRN Reason: Nausea And Vomiting PHYSICAL EXAMINATION: GENERAL: The patient is alert and oriented x1-2, Well developed, well nourished. Orbitally obese HEENT: Pupils are round and equally reacting to light. EOMI. does have scleral icterus. No conjunctival pallor. Normocephalic, atraumatic. No pharyngeal erythema. No thyromegaly. CARDIOVASCULAR: S1 and S2 muffled PULMONARY: diminished breath sounds bilaterally with no wheezing or rhonchi noted. ABDOMEN: soft. Nontender on exam. obese. non-distended, normoactive bowel sounds. No palpable organomegaly. MUSCULOSKELETAL: No joint swelling or deformity. EXTREMITIES: No cyanosis, clubbing, or pedal edema. Right hip surgical dressing is intact NEUROLOGICAL: Gross neurological examination did not reveal any focal deficits. Diffuse weakness SKIN: No rashes. Assessment: Altered mental status; toxic metabolic encephalopathy related to UTI Urinary tract infection, present on admission with pseudomonas aeruginosa and Enterobacter species Transverse fracture of right malleolus; orthopedic surgery on board; new right ankle splint is applied; recommending to continue to elevate ankle and apply ice; patient remains nonweightbearing to right lower extremity History of Bipolar disorder Urinary retention, chronic indwelling catheter Hypertension COPD without exacerbation, maintained on 4 L of oxygen Diabetes melitis, not on oral medication; monitor Accu-Cheks every before meals and at bedtime with insulin sliding scale GI prophylaxis DVT prophylaxis No code Plan: Recommend to continue with current medications and management. Patient has been seen and evaluated by PT/OT therapy recommending rehab and patient will be going to [facility] once stabilized. She continues on IV cefepime with anxiety following closely and will require IV antibiotics on discharge is UTI cultures finalized showing Enterobacter along with pseudomonas aeruginosa. No staff to place midline today and patient will receive midline on 09/09/2021. Appropriate home medications resumed and recommend to continue monitoring Accu-Cheks before meals and at bedtime and use sliding scale as needed. Patient tolerating diet with no reports of nausea or vomiting noted. Orthopedic service is also following and patient has right lower extremity splint and following. Due to multiple complex medical issues, prognosis is guarded. Will continue to monitor closely. The impression and plan of care has been dictated by Audrey Curtis, prac titioner as directed. MD Juaquin I have performed a history and examination and MDM of this patient, discussed the same with the dictator, and agree with the dictator's assessment and plan as written ,documented as a scribe. Based on total visit time, I have performed more than 50% of the visit. Any additional findings or plans will be noted. Objective - Vital Signs Vital signs: Vital Signs Temp 98 F 09/08/21 05:00 Pulse 68 09/08/21 09:26 Resp 18 09/08/21 05:00 BP 149/78 09/08/21 05:00 Pulse Ox 98 09/08/21 05:00 Intake & Output 09/07/21 09/08/21 09/08/21 18:59 06:59 18:59 Intake Total 940 Output Total 800 400 Balance 140 -400 Intake: Intake, IV Titration 700 Amount Cefepime 2 gm In Sodium 100 Chloride 0.9% 100 ml @ 25 mls/hr IVPB Q8HR [facility] Rx# :[id number] Dextrose 5%-0.9% NaCl 1, 600 000 ml @ 75 mls/hr IV . [id number] [facility] Rx#:[id number] Oral 240 Output: Urine 800 400 Other: Voiding Method Indwelling Catheter Indwelling Catheter # Voids 2 - Labs CBC & Chem 7: 09/07/21 11:03 09/07/21 11:03 Labs: Abnormal Lab Results - Last 24 Hours (Table) 09/07/21 09/07/21 09/07/21 Range/Units 11:03 17:19 20:06 Sodium 136 L (137-145) mmol/L Potassium 3.4 L (3.5-5.1) mmol/L Carbon Dioxide 34 H (22-30) mmol/L POC Glucose (mg/dL) 113 H 100 H (75-99) mg/dL Microbiology - Last 24 Hours (Table) 09/03/21 20:19 Urine Culture - Final Urine,Clean Catch Enterobacter aerogenes Pseudomonas aeruginosa
[2021-09-08] MEDS: OLANZapine 7.5 MG TAB PO SCH ×2 (17:24→20:37)
[2021-09-08 17:41] LABS: Glucose,Whole Blood 109 mg/dL (75-99)
--- NOTE | 2021-09-08 18:31 | P.PN ---
Subjective Progress Note Date: 09/15/21 Principal diagnosis: Progress note She was seen in the medical unit; Although she improved markedly in her medcial status, she continued to be manic and arrangement for her to be transfered to extended care for physical rehabilitation. She was highly labile, with marked agitation. She grabbbed the phone unpredictably and would not follow through the medical care. She talked of contacting her for reasons uncertain. She was unaware of her need for intensive Phys. Sudhakar. for her to regain her functional level. Transfer to psychiatric unit may not be to her best interest. Diagnosis Bipolar manic episode, psychotic features. Management plan: D/c SSRI ; induced jairo ; e. Depakote to be increased to 1500 mg od. Buspar at 30 mg po bid. Gabapentin 300 mg po bid. abilify to be titrated to 7. 5 mg if she tolerated. Fast rate of titration carries risk of adverse events; however, her jairo may interfered with her rehab Objective - Vital Signs Vital signs: Vital Signs Temp 97.9 F 09/08/21 11:50 Pulse 66 09/08/21 11:50 Resp 20 09/08/21 11:50 BP 141/81 09/08/21 11:50 Pulse Ox 96 09/08/21 11:50 Intake & Output 09/07/21 09/08/21 09/08/21 18:59 06:59 18:59 Intake Total 940 1100 Output Total 800 400 Balance 140 -400 1100 Intake: Intake, IV Titration 700 1100 Amount Cefepime 2 gm In Sodium 100 200 Chloride 0.9% 100 ml @ 25 mls/hr IVPB Q8HR [facility] Rx# :[id number] Dextrose 5%-0.9% NaCl 1, 600 900 000 ml @ 75 mls/hr IV . [id number] [facility] Rx#:[id number] Oral 240 Output: Urine 800 400 Other: Voiding Method Indwelling Catheter Indwelling Catheter Indwelling Catheter # Voids 2 - Labs CBC & Chem 7: 09/07/21 11:03 09/07/21 11:03 Labs: Abnormal Lab Results - Last 24 Hours (Table) 09/07/21 09/08/21 Range/Units 20:06 17:38 POC Glucose (mg/dL) 100 H 109 H (75-99) mg/dL
[2021-09-08] MEDS: MONTELUKAST 10 MG TAB PO SCH (20:37)
[2021-09-08 21:04] LABS: Glucose,Whole Blood 100 mg/dL (75-99)
[2021-09-09] MEDS: LEVOTHYROXINE 88 MCG TAB PO SCH (06:03)
[2021-09-09 07:08] LABS: Glucose,Whole Blood 76 mg/dL (75-99)
[2021-09-09] MEDS: INSULIN ASPART (NovoLOG) 100 UNIT/ML VIAL SQ SCH ×4 (07:17→21:10)
[2021-09-09] MEDS: ALBUTEROL NEBULIZED 2.5 MG/3 ML INHALATION SCH ×3 (08:06→19:56)
[2021-09-09] MEDS: SYMBICORT 160-4.5 MCG INHALER INHALATION SCH ×2 (08:06→19:56)
[2021-09-09] MEDS: NICOTINE 14MG/24HR PATCH TRANSDERM SCH (08:42)
[2021-09-09] MEDS: amLODIPine 5 MG TAB PO SCH (08:42)
[2021-09-09] MEDS: busPIRone HCl 10 MG TAB PO SCH ×2 (08:42→21:10)
[2021-09-09] MEDS: CEFEPIME 2 GM in SODIUM CHLORIDE 0.9% 100 ML IVPB SCH ×3 (08:43→23:47)
[2021-09-09] MEDS: ENOXAPARIN 60 MG/0.6 ML SYRINGE SQ SCH (08:45)
[2021-09-09] MEDS: clonazePAM 0.5 MG TAB PO SCH ×2 (08:45→17:38)
[2021-09-09] MEDS: FAMOTIDINE 20 MG TAB PO SCH ×2 (08:45→16:17)
[2021-09-09] MEDS: GABAPENTIN 300 MG CAP PO SCH ×2 (08:45→21:10)
[2021-09-09] MEDS: lisinopriL 20 MG TAB PO SCH (08:46)
[2021-09-09] MEDS: lamoTRIgine 100 MG TAB PO SCH ×2 (08:46→21:10)
[2021-09-09] MEDS: OLANZapine 7.5 MG TAB PO SCH (08:48)
[2021-09-09] MEDS ORDERED: DIVALPROEX ER 500 MG TAB.ER.24H PO SCH (09:00)
[2021-09-09 10:42] LABS: Glucose,Whole Blood 94 mg/dL (75-99)
[2021-09-09] MEDS: DEXTROSE 5%-0.9% NACL 1,000 ML IV SCH ×2 (12:27→17:40)
[2021-09-09 13:56] LABS: ALT 7 U/L (4-34); AST 25 U/L (14-36); African American GFR (CKD) >90 (>60 ml/min/1.73 sqM); Albumin 2.4 g/dL (3.5-5.0); Alkaline Phosphatase 56 U/L (38-126); Anion Gap 2 mmol/L; Blood Urea Nitrogen 10 mg/dL (7-17); Calcium 9.1 mg/dL (8.4-10.2); Carbon Dioxide 27 mmol/L (22-30); Chloride 105 mmol/L (98-107); Globulin 2.5 g/dL; Glucose 95 mg/dL (74-99); Non-African American GFR(CKD) >90 (>60 ml/min/1.73 sqM); Potassium 3.6 mmol/L (3.5-5.1); Sodium 134 mmol/L (137-145); Total Bilirubin 0.6 mg/dL (0.2-1.3); Total Protein 4.9 g/dL (6.3-8.2)
--- NOTE | 2021-09-09 14:51 | P.PN ---
<Ilda, - Last Filed: 09/09/21 14:43> Subjective Progress Note Date: 09/09/21 Principal diagnosis: Altered mental status Patient is a 66-year-old female who presented to the emergency room from [facility] for altered mental status, low-grade temp and difficulty breathing. Patient has a significant medical history that includes COPD, diabetes, fibromyalgia, GERD, hypertension, osteoarthritis, history of pulmonary embolism, recent bilateral lower extremity cellulitis, IBS, history of urinary tract infections with sepsis, anxiety, bipolar, depression, and thyroid disorder. Chest x-ray found some right pleural atelectasis which was not significantly different to last exam. CT of brain and C-spine found cerebral atrophy with no acute intracranial abnormality, Spondylitic mild changes in the cervical spine with no fracture. White count was elevated at 13.9. urine was positive for red and white blood cells, yeast budding and protein. Has history of urinary retent ion with a chronic indwelling catheter. Patient was admitted for possible UTI causing mental status changes. Infectious disease was consulted. Patient was seen and examined at bedside today, continues to be confused. Oriented to self, does not answer questions correctly, does not follow simple co mmands. The patient is very tearful and mumbling random words. Spoke with the Jose Eduardo, he states that the patient has been confused since last admission in July, and has been hallucinating at [facility]. He claims that she is lucid at times, but majority of the time is confused and talks to people that are not in the room. Patient does have a history of psychiatric disorders, psychiatry was consulted to review medications. Patient also had a fall on Wednesday, September 01 2021 at [facility]. Right ankle x-ray showed transverse fracture of the medial and lateral malleolus. Right ankle is wrapped, was [facility], consulted orthopedics to see patient while in hospital. White count improved to 11.4 today. Husain catheter was replaced. 09/05/2021 Patient was seen and examined at bedside. She was resting comfortably in bed, responded to touch. Oriented to self, continues to be confused. No complications overnight. Antibiotics were started for suspected UTI secondary to catheter insertion. We'll repeat blood work tomorrow morning. Urine culture pending. Awaiting psychiatry and orthopedic recommendations for treatment plan. Hospitalist coverage /09/09/2021 Patient was seen and examined at bedside. Patient is resting comfortably in bed, in no acute distress. Responded to touch, oriented to self, continues to be confused. Unable to speak in a sentence. Patient was supposed to be discharged yesterday but had to wait for midline placement. Urine culture showed Pseudomonas and enterobacter, infectious disease recommending IV antibiotics for 1 week after discharge. Right Ankle was splinted, will follow up with orthopedics outpatient. Psychiatry made adjustments to medications, is recommending inpatient geriatric psych treatment, case management was notified. Objective - Vital Signs Vital signs: Vital Signs Temp 98.9 F 09/09/21 11:55 Pulse 82 09/09/21 11:55 Resp 18 09/09/21 11:55 BP 152/79 09/09/21 11:55 Pulse Ox 93 L 09/09/21 11:55 Intake & Output 09/08/21 09/09/21 09/09/21 18:59 06:59 18:59 Intake Total 1100 1000 Output Total 500 Balance 1100 500 Intake: Intake, IV Titration 1100 1000 Amount Cefepime 2 gm In Sodium 200 100 Chloride 0.9% 100 ml @ 25 mls/hr IVPB Q8HR [facility] Rx# :[id number] Dextrose 5%-0.9% NaCl 1, 900 900 000 ml @ 75 mls/hr IV . [id number] [facility] Rx#:[id number] Output: Urine 500 Uretheral (Husain) 500 Other: Voiding Method Indwelling Catheter Indwelling Catheter Indwelling Catheter - Constitutional General appearance: Present: no acute distress, obese - EENT Eyes: Present: PERRLA Ears: bilateral: normal - Neck Neck: Present: normal ROM Carotids: bilateral: upstroke normal - Respiratory Respiratory: bilateral: diminished - Cardiovascular Heart rate: 80 Rhythm: regular Heart sounds: normal: S1, S2 - Peripheral pulses radial pulse Peripheral Pulses: bilateral: Normal - Gastrointestinal General gastrointestinal: Present: normal bowel sounds, soft - Integumentary Integumentary: Present: normal, normal turgor - Neurologic Neurologic: Present: focal deficits - Musculoskeletal Musculoskeletal: Present: generalized weakness - Psychiatric Psychiatric Comment(s): Oriented to self, unable to speak in full sentences - Allied health notes Allied health notes reviewed: nursing - Labs CBC & Chem 7: 09/07/21 11:03 09/09/21 13:14 Labs: Abnormal Lab Results - Last 24 Hours (Table) 09/08/21 09/08/21 09/09/21 Range/Units 17:38 20:57 13:14 Sodium 134 L (137-145) mmol/L Creatinine 0.51 L (0.52-1.04) mg/dL POC Glucose (mg/dL) 109 H 100 H (75-99) mg/dL Total Protein 4.9 L (6.3-8.2) g/dL Albumin 2.4 L (3.5-5.0) g/dL Assessment and Plan Assessment: Altered mental status, continued confusion Acute urinary tract infection, secondary to Husain catheter Transverse fracture of right malleolus Bipolar disorder, manic episode, psychotic features Urinary retention, chronic indwelling catheter Hypertension COPD without exacerbation, maintained on 4 L of oxygen Diabetes melitis, not on oral medication Anxiety History of GERD History of pulmonary embolism, on Lovenox DO NOT RESUSCITATE Plan: Continue following infectious disease recommendations for urinary tract infection, IV antibiotics Psychiatry consultation for altered mental status, persistent confusion and hallucinations Recent ankle fracture, will follow-up outpatient Sliding-scale insulin for glucose control Continue current medication regimen Continue to monitor vital signs and mental status Psychiatry recommending geriatric inpatient psych treatment instead of returning to [facility] at this time Further recommendations to come based on patient's clinical course Time with Patient: Greater than 30 <Andrzej Wheeler - Last Filed: 09/11/21 19:29> Subjective I have personally seen and examined the patient, reviewed the documentation and agree with the assessment and plan as written. Number of minutes spent on the visit: greater than 15. Objective - Vital Signs Vital signs: Vital Signs Temp 98.0 F 09/11/21 12:28 Pulse 72 09/11/21 19:11 Resp 18 09/11/21 12:28 BP 162/71 09/11/21 12:28 Pulse Ox 94 L 09/11/21 19:04 Intake & Output 09/11/21 09/11/21 09/12/21 06:59 18:59 06:59 Intake Total 720 Output Total 400 500 Balance -400 220 Intake: Oral 720 Output: Urine 400 500 Other: Voiding Method Indwelling Catheter Indwelling Catheter - Labs CBC & Chem 7: 09/11/21 06:22 09/11/21 06:22 Labs: Abnormal Lab Results - Last 24 Hours (Table) 09/10/21 09/11/21 09/11/21 Range/Units 20:21 06:22 06:22 WBC 10.82 H (4.50-10.00) X 10*3/uL RBC 3.61 L (4.10-5.20) X 10*6/uL Hgb 11.0 L (12.0-15.0) g/dL Hct 35.8 L (37.2-46.3) % MCV 99.2 H (80.0-97.0) fL MCHC 30.7 L (32.0-37.0) g/dL MPV 9.3 L (9.5-12.2) fL Carbon Dioxide 29.8 H (20.0-27.5) mmol/L Anion Gap 7.80 L (10.00-18.00) mmol/L Creatinine 0.5 L (0.6-1.5) mg/dL POC Glucose (mg/dL) 125 H (75-99) mg/dL 09/11/21 Range/Units 16:47 WBC (4.50-10.00) X 10*3/uL RBC (4.10-5.20) X 10*6/uL Hgb (12.0-15.0) g/dL Hct (37.2-46.3) % MCV (80.0-97.0) fL MCHC (32.0-37.0) g/dL MPV (9.5-12.2) fL Carbon Dioxide (20.0-27.5) mmol/L Anion Gap (10.00-18.00) mmol/L Creatinine (0.6-1.5) mg/dL POC Glucose (mg/dL) 106 H (75-99) mg/dL
[2021-09-09 15:23] LABS: Basophils # (A) 0.1 k/uL (0-0.2); Basophils % (A) 1 %; Eosinophils # (A) 0.5 k/uL (0-0.7); Eosinophils % (A) 2 %; HCT 38.7 % (34.0-46.0); HGB 12.6 gm/dL (11.4-16.0); Lymphocytes # (A) 2.1 k/uL (1.0-4.8); Lymphocytes % (A) 9 %; MCH 31.8 pg (25.0-35.0); MCHC 32.5 g/dL (31.0-37.0); MCV 97.8 fL (80.0-100.0); Mean Platelet Volume 7.1; Monocytes # (A) 2.9 k/uL (0-1.0); Monocytes % (A) 12 %; Neutrophils # (A) 18.1 k/uL (1.3-7.7); Neutrophils % (A) 76 %; Platelet Count 202 k/uL (150-450); RBC 3.96 m/uL (3.80-5.40); RDW 13.3 % (11.5-15.5); WBC 23.9 k/uL (3.8-10.6)
[2021-09-09 15:46] LABS: RBC Morphology Normal
--- NOTE | 2021-09-09 17:22 | P.PN ---
Subjective Progress Note Date: 09/09/21 Principal diagnosis: Progress note She was seen today with update from the nursing staff. I reviewed the medical note with the issue of confusion and her UTI requiring IV anti-biotic. She was calmer but seemed to be sedated. She was mumbling to herself and was aimlessly grabbing at the objects. I have attempted to introduce 1. Depakote ; the dosage would be reduced to 1000 mg once daily for concern that the dosage woudl worsen her unresolved delirium and bipolar jairo 2. She was started on Zyprexa at 7.5 mg po bid and the dosage was reduced today to 10 mg My opionion is that she would not benefit from returning to the alf without a peroid of stabilization at [facility]. unit 3 unit , I am explained is not able to meet her complex medical and psychiatric needs. My assessment and recommendation were fully communicated to the Unit nursing and the charge nurse. Discharge diagnosis; Bipolar disorder manic phase complicated by UTI Objective - Vital Signs Vital signs: Vital Signs Temp 98.9 F 09/09/21 11:55 Pulse 82 09/09/21 11:55 Resp 18 09/09/21 11:55 BP 152/79 09/09/21 11:55 Pulse Ox 93 L 09/09/21 11:55 Intake & Output 09/08/21 09/09/21 09/09/21 18:59 06:59 18:59 Intake Total 1100 1000 Output Total 500 750 Balance 1100 500 -750 Intake: Intake, IV Titration 1100 1000 Amount Cefepime 2 gm In Sodium 200 100 Chloride 0.9% 100 ml @ 25 mls/hr IVPB Q8HR [facility] Rx# :[id number] Dextrose 5%-0.9% NaCl 1, 900 900 000 ml @ 75 mls/hr IV . [id number] [facility] Rx#:[id number] Output: Urine 500 750 Uretheral (Husain) 500 Other: Voiding Method Indwelling Catheter Indwelling Catheter Indwelling Catheter - Labs CBC & Chem 7: 09/09/21 14:33 09/09/21 13:14 Labs: Abnormal Lab Results - Last 24 Hours (Table) 09/08/21 09/08/21 09/09/21 Range/Units 17:38 20:57 13:14 WBC (3.8-10.6) k/uL Neutrophils # (1.3-7.7) k/uL Monocytes # (0-1.0) k/uL Sodium 134 L (137-145) mmol/L Creatinine 0.51 L (0.52-1.04) mg/dL POC Glucose (mg/dL) 109 H 100 H (75-99) mg/dL Total Protein 4.9 L (6.3-8.2) g/dL Albumin 2.4 L (3.5-5.0) g/dL 09/09/21 Range/Units 14:33 WBC 23.9 H (3.8-10.6) k/uL Neutrophils # 18.1 H (1.3-7.7) k/uL Monocytes # 2.9 H (0-1.0) k/uL Sodium (137-145) mmol/L Creatinine (0.52-1.04) mg/dL POC Glucose (mg/dL) (75-99) mg/dL Total Protein (6.3-8.2) g/dL Albumin (3.5-5.0) g/dL
[2021-09-09 17:24] LABS: Glucose,Whole Blood 86 mg/dL (75-99)
[2021-09-09 20:55] LABS: Glucose,Whole Blood 88 mg/dL (75-99)
[2021-09-09] MEDS: OLANZapine 5 MG TAB PO SCH (21:10)
[2021-09-09] MEDS: MONTELUKAST 10 MG TAB PO SCH (21:10)
--- NOTE | 2021-09-09 23:07 | P.PN ---
Subjective Progress Note Date: 09/08/21 Principal diagnosis: Catheter associated urinary tract infection Patient is a 66-year-old female with recent right ankle fracture for the patient is in splint admitted [facility] the local [facility] with mental status changes and concern for urinary tract infection catheter associated. On today's evaluation that is 09/08/2021, the patient remains to be afebrile, the patient remains to be pleasantly confused however denies any headache no chest pain shortness of breath or cough , the patient denies abdominal pain no diarrhea Objective - Vital Signs Vital signs: Vital Signs Temp 98 F 09/08/21 05:00 Pulse 68 09/08/21 09:26 Resp 18 09/08/21 05:00 BP 149/78 09/08/21 05:00 Pulse Ox 98 09/08/21 05:00 Intake & Output 09/07/21 09/08/21 09/08/21 18:59 06:59 18:59 Intake Total 940 Output Total 800 400 Balance 140 -400 Intake: Intake, IV Titration 700 Amount Cefepime 2 gm In Sodium 100 Chloride 0.9% 100 ml @ 25 mls/hr IVPB Q8HR [facility] Rx# :[id number] Dextrose 5%-0.9% NaCl 1, 600 000 ml @ 75 mls/hr IV . [id number] [facility] Rx#:[id number] Oral 240 Output: Urine 800 400 Other: Voiding Method Indwelling Catheter Indwelling Catheter # Voids 2 - Exam GENERAL DESCRIPTION: A middle-age female lying in bed in no distress RESPIRATORY SYSTEM: Unlabored breathing , decreased breath sounds at bases HEART: S1 S2 regular rate and rhythm , ABDOMEN: Soft , no tenderness EXTREMITIES: Right leg is currently covered with a cast - Labs CBC & Chem 7: 09/09/21 14:33 09/09/21 13:14 Labs: Abnormal Lab Results - Last 24 Hours (Table) 09/07/21 09/07/21 09/07/21 Range/Units 11:03 17:19 20:06 Sodium 136 L (137-145) mmol/L Potassium 3.4 L (3.5-5.1) mmol/L Carbon Dioxide 34 H (22-30) mmol/L POC Glucose (mg/dL) 113 H 100 H (75-99) mg/dL Microbiology - Last 24 Hours (Table) 09/03/21 20:19 Urine Culture - Final Urine,Clean Catch Enterobacter aerogenes Pseudomonas aeruginosa Assessment and Plan (1) UTI (urinary tract infection) Current Visit: Yes Status: Acute Code(s): N39.0 - URINARY TRACT INFECTION, SITE NOT SPECIFIED SNOMED Code(s): 44177166 Plan: 1-Patient presented to hospital with mental status changes patient did have a low-grade fever elevated white count source likely catheter associated tract infection likely from enteric gram-negative pathogen patient being a [facility] resident we need to cover for resistant gram-negative. Urine showing Enterobacter and Pseudomonas sensitive to cefepime, Pseudomonas is resistant to Cipro, Patient to continue with cefepime 2 g every 8 hours , patient will need to continue IV cefepime for which a midline has been requested Time with Patient: Less than 30
--- NOTE | 2021-09-09 23:08 | P.PN ---
Subjective Progress Note Date: 09/09/21 Principal diagnosis: Catheter associated urinary tract infection Patient is a 66-year-old female with recent right ankle fracture for the patient is in [facility] and concern for urinary tract infection catheter associated. On today's evaluation that is 09/09/2021, the patient denies any fever or any chills, the patient denies any headache no chest pain shortness of breath or cough , the patient denies abdominal pain no diarrhea with antibiotic therapy Objective - Vital Signs Vital signs: Vital Signs Temp 98.5 F 09/09/21 08:17 Pulse 82 09/09/21 08:17 Resp 16 09/09/21 08:17 BP 152/69 09/09/21 08:17 Pulse Ox 94 L 09/09/21 08:17 Intake & Output 09/08/21 09/09/21 09/09/21 18:59 06:59 18:59 Intake Total 1100 1000 Output Total 500 Balance 1100 500 Intake: Intake, IV Titration 1100 1000 Amount Cefepime 2 gm In Sodium 200 100 Chloride 0.9% 100 ml @ 25 mls/hr IVPB Q8HR [facility] Rx# :[id number] Dextrose 5%-0.9% NaCl 1, 900 900 000 ml @ 75 mls/hr IV . [id number] [facility] Rx#:[id number] Output: Urine 500 Uretheral (Husain) 500 Other: Voiding Method Indwelling Catheter Indwelling Catheter - Exam GENERAL DESCRIPTION: A middle-age female lying in bed in no distress RESPIRATORY SYSTEM: Unlabored breathing , decreased breath sounds at bases HEART: S1 S2 regular rate and rhythm , ABDOMEN: Soft , no tenderness EXTREMITIES: Right leg is currently covered with a cast - Labs CBC & Chem 7: 09/09/21 14:33 09/09/21 13:14 Labs: Abnormal Lab Results - Last 24 Hours (Table) 09/08/21 09/08/21 Range/Units 17:38 20:57 POC Glucose (mg/dL) 109 H 100 H (75-99) mg/dL Assessment and Plan (1) UTI (urinary tract infection) Current Visit: Yes Status: Acute Code(s): N39.0 - URINARY TRACT INFECTION, SITE NOT SPECIFIED SNOMED Code(s): 95226887 Plan: 1-Patient presented to hospital with mental status changes patient did have a low-grade fever elevated white count source likely catheter associated tract infection likely from enteric gram-negative pathogen [facility] we need to cover for resistant gram-negative. Urine showing Enterobacter and Pseudomonas sensitive to cefepime, Pseudomonas is resistant to Cipro, Patient to continue with cefepime 2 g every 8 hours , and monitor clinical course closely Time with Patient: Less than 30
[2021-09-10] MEDS: SYMBICORT 160-4.5 MCG INHALER INHALATION SCH ×2 (07:12→20:23)
[2021-09-10] MEDS: ALBUTEROL NEBULIZED 2.5 MG/3 ML INHALATION SCH ×3 (07:12→20:23)
[2021-09-10 07:31] LABS: Glucose,Whole Blood 82 mg/dL (75-99)
[2021-09-10] MEDS: INSULIN ASPART (NovoLOG) 100 UNIT/ML VIAL SQ SCH ×4 (07:34→21:02)
[2021-09-10] MEDS: busPIRone HCl 10 MG TAB PO SCH ×2 (07:46→21:01)
[2021-09-10] MEDS: NICOTINE 14MG/24HR PATCH TRANSDERM SCH (07:46)
[2021-09-10] MEDS: ENOXAPARIN 60 MG/0.6 ML SYRINGE SQ SCH (07:47)
[2021-09-10] MEDS: LEVOTHYROXINE 88 MCG TAB PO SCH (07:47)
[2021-09-10] MEDS: amLODIPine 5 MG TAB PO SCH (07:47)
[2021-09-10] MEDS: clonazePAM 0.5 MG TAB PO SCH ×2 (07:47→17:34)
[2021-09-10] MEDS: FAMOTIDINE 20 MG TAB PO SCH ×2 (07:47→17:34)
[2021-09-10] MEDS: GABAPENTIN 300 MG CAP PO SCH ×2 (07:47→21:01)
[2021-09-10] MEDS: lamoTRIgine 100 MG TAB PO SCH ×2 (07:47→21:01)
[2021-09-10] MEDS: lisinopriL 20 MG TAB PO SCH (07:47)
[2021-09-10] MEDS: CEFEPIME 2 GM in SODIUM CHLORIDE 0.9% 100 ML IVPB SCH ×2 (07:48→15:19)
[2021-09-10] MEDS: OLANZapine 5 MG TAB PO SCH ×2 (07:48→21:02)
[2021-09-10] MEDS: DIVALPROEX ER 250 MG TAB.ER.24H PO SCH (07:49)
[2021-09-10] MEDS ORDERED: OLANZapine 7.5 MG TAB PO SCH (09:00)
[2021-09-10] MEDS: DEXTROSE 5%-0.9% NACL 1,000 ML IV SCH (11:40)
[2021-09-10 11:55] LABS: Glucose,Whole Blood 80 mg/dL (75-99)
--- NOTE | 2021-09-10 13:21 | P.PN ---
<Ilda, - Last Filed: 09/10/21 12:50> Subjective Progress Note Date: 09/10/21 Principal diagnosis: Altered mental status Patient is a 66-year-old female who presented to the emergency room from [facility] for altered mental status, low-grade temp and difficulty breathing. Patient has a significant medical history that includes COPD, diabetes, fibromyalgia, GERD, hypertension, osteoarthritis, history of pulmonary embolism, recent bilateral lower extremity cellulitis, IBS, history of urinary tract infections with sepsis, anxiety, bipolar, depression, and thyroid disorder. Chest x-ray found some right pleural atelectasis which was not significantly different to last exam. CT of brain and C-spine found cerebral atrophy with no acute intracranial abnormality, Spondylitic mild changes in the cervical spine with no fracture. White count was elevated at 13.9. urine was positive for red and white blood cells, yeast budding and protein. Has history of urinary retent ion with a chronic indwelling catheter. Patient was admitted for possible UTI causing mental status changes. Infectious disease was consulted. Patient was seen and examined at bedside today, continues to be confused. Oriented to self, does not answer questions correctly, does not follow simple co mmands. The patient is very tearful and mumbling random words. Spoke with the Jose Eduardo, he states that the patient has been confused since last admission in July, and has been hallucinating at [facility]. He claims that she is lucid at times, but majority of the time is confused and talks to people that are not in the room. Patient does have a history of psychiatric disorders, psychiatry was consulted to review medications. Patient also had a fall on Wednesday, September 01 2021 at [facility]. Right ankle x-ray showed transverse fracture of the medial and lateral malleolus. Right ankle is wrapped, was scheduled [facility], consulted orthopedics to see patient while in hospital. White count improved to 11.4 today. Husain catheter was replaced. 09/05/2021 Patient was seen and examined at bedside. She was resting comfortably in bed, responded to touch. Oriented to self, continues to be confused. No complications overnight. Antibiotics were started for suspected UTI secondary to catheter insertion. We'll repeat blood work tomorrow morning. Urine culture pending. Awaiting psychiatry and orthopedic recommendations for treatment plan. Hospitalist coverage /09/09/2021 Patient was seen and examined at bedside. Patient is resting comfortably in bed, in no acute distress. Responded to touch, oriented to self, continues to be confused. Unable to speak in a sentence. Patient was supposed to be discharged yesterday but had to wait for midline placement. Urine culture showed Pseudomonas and enterobacter, infectious disease recommending IV antibiotics for 1 week after discharge. Right Ankle was splinted, will follow up with orthopedics outpatient. Psychiatry made adjustments to medications, is recommending inpatient geriatric psych treatment, case management was notified. 09/10/2021 Patient seen and examined at bedside. Patient resting in bed, no acute distress. Patient is oriented to self and place, not time. Able to speak in sentences, agitated, wanting to talk to her . Right ankle continues to be splinted. Patient is to be discharged on IV antibiotics, however psych recommends inpatient geriatric psych treatment. Social work is working on locating facility that can accommodate IV antibiotic treatment and older adult psych services. Objective - Vital Signs Vital signs: Vital Signs Temp 98.0 F 09/10/21 11:17 Pulse 70 09/10/21 11:17 Resp 20 09/10/21 11:17 BP 156/70 09/10/21 11:17 Pulse Ox 97 09/10/21 11:17 Intake & Output 09/09/21 09/10/21 09/10/21 18:59 06:59 18:59 Intake Total 200 600 Output Total 750 3600 Balance -550 -3000 Intake: Intake, IV Titration 200 400 Amount Cefepime 2 gm In Sodium 200 100 Chloride 0.9% 100 ml @ 25 mls/hr IVPB Q8HR [facility] Rx# :[id number] Dextrose 5%-0.9% NaCl 1, 300 000 ml @ 75 mls/hr IV . [id number] [facility] Rx#:[id number] Oral 200 Output: Urine 750 3600 Uretheral (Husain) 1800 Other: Voiding Method Indwelling Catheter Indwelling Catheter Indwelling Catheter - Constitutional General appearance: Present: no acute distress, obese - EENT Eyes: Present: EOMI, PERRLA ENT: Present: normal oropharynx Ears: bilateral: normal - Neck Neck: Present: normal ROM Carotids: bilateral: upstroke normal - Respiratory Respiratory: bilateral: diminished - Cardiovascular Heart rate: 90 Rhythm: regular Heart sounds: normal: S1, S2 - Peripheral pulses radial pulse Peripheral Pulses: bilateral: Normal - Gastrointestinal General gastrointestinal: Present: normal bowel sounds, soft - Integumentary Integumentary: Present: normal, normal turgor - Neurologic Neurologic: Present: focal deficits - Musculoskeletal Musculoskeletal: Present: generalized weakness - Psychiatric Psychiatric Comment(s): A&Ox2 - Allied health notes Allied health notes reviewed: social work - Labs CBC & Chem 7: 09/09/21 14:33 09/09/21 13:14 Labs: Abnormal Lab Results - Last 24 Hours (Table) 09/09/21 09/09/21 Range/Units 13:14 14:33 WBC 23.9 H (3.8-10.6) k/uL Neutrophils # 18.1 H (1.3-7.7) k/uL Monocytes # 2.9 H (0-1.0) k/uL Sodium 134 L (137-145) mmol/L Creatinine 0.51 L (0.52-1.04) mg/dL Total Protein 4.9 L (6.3-8.2) g/dL Albumin 2.4 L (3.5-5.0) g/dL Assessment and Plan Assessment: Altered mental status, continued confusion Acute urinary tract infection, secondary to Husain catheter Transverse fracture of right malleolus Bipolar disorder, manic episode, psychotic features Urinary retention, chronic indwelling catheter Hypertension COPD without exacerbation, maintained on 4 L of oxygen Diabetes melitis, not on oral medication Anxiety History of GERD History of pulmonary embolism, on Lovenox DO NOT RESUSCITATE Plan: Continue following infectious disease recommendations for urinary tract infection, IV antibiotics Psychiatry consultation for altered mental status, persistent confusion and hallucinations, recommending inpatient psych Recent ankle fracture, will follow-up outpatient Sliding-scale insulin for glucose control Continue current medication regimen Continue to monitor vital signs and mental status Psychiatry recommending geriatric inpatient psych treatment instead of returning to [facility] at this time Further recommendations to come based on patient's clinical course Time with Patient: Greater than 30 <Andrzej Wheeler - Last Filed: 09/11/21 19:27> Subjective I have personally seen and examined the patient, reviewed the documentation and agree with the assessment and plan as written. Number of minutes spent on the visit: [greater than 15]. Objective - Vital Signs Vital signs: Vital Signs Temp 98.0 F 09/11/21 12:28 Pulse 72 09/11/21 19:11 Resp 18 09/11/21 12:28 BP 162/71 09/11/21 12:28 Pulse Ox 94 L 09/11/21 19:04 Intake & Output 09/11/21 09/11/21 09/12/21 06:59 18:59 06:59 Intake Total 720 Output Total 400 500 Balance -400 220 Intake: Oral 720 Output: Urine 400 500 Other: Voiding Method Indwelling Catheter Indwelling Catheter - Labs CBC & Chem 7: 09/11/21 06:22 09/11/21 06:22 Labs: Abnormal Lab Results - Last 24 Hours (Table) 09/10/21 09/11/21 09/11/21 Range/Units 20:21 06:22 06:22 WBC 10.82 H (4.50-10.00) X 10*3/uL RBC 3.61 L (4.10-5.20) X 10*6/uL Hgb 11.0 L (12.0-15.0) g/dL Hct 35.8 L (37.2-46.3) % MCV 99.2 H (80.0-97.0) fL MCHC 30.7 L (32.0-37.0) g/dL MPV 9.3 L (9.5-12.2) fL Carbon Dioxide 29.8 H (20.0-27.5) mmol/L Anion Gap 7.80 L (10.00-18.00) mmol/L Creatinine 0.5 L (0.6-1.5) mg/dL POC Glucose (mg/dL) 125 H (75-99) mg/dL 09/11/21 Range/Units 16:47 WBC (4.50-10.00) X 10*3/uL RBC (4.10-5.20) X 10*6/uL Hgb (12.0-15.0) g/dL Hct (37.2-46.3) % MCV (80.0-97.0) fL MCHC (32.0-37.0) g/dL MPV (9.5-12.2) fL Carbon Dioxide (20.0-27.5) mmol/L Anion Gap (10.00-18.00) mmol/L Creatinine (0.6-1.5) mg/dL POC Glucose (mg/dL) 106 H (75-99) mg/dL
[2021-09-10 13:43] VITALS: BMI 44.2
[2021-09-10 17:17] LABS: Glucose,Whole Blood 76 mg/dL (75-99)
[2021-09-10 20:23] LABS: Glucose,Whole Blood 125 mg/dL (75-99)
[2021-09-10] MEDS: MONTELUKAST 10 MG TAB PO SCH (21:01)
[2021-09-11] MEDS: CEFEPIME 2 GM in SODIUM CHLORIDE 0.9% 100 ML IVPB SCH ×4 (00:20→23:33)
[2021-09-11] MEDS: LEVOTHYROXINE 75 MCG TAB PO SCH (06:00)
[2021-09-11] MEDS: DEXTROSE 5%-0.9% NACL 1,000 ML IV SCH ×3 (06:08→22:37)
[2021-09-11] MEDS: SYMBICORT 160-4.5 MCG INHALER INHALATION SCH ×2 (07:17→19:01)
[2021-09-11] MEDS: ALBUTEROL NEBULIZED 2.5 MG/3 ML INHALATION SCH ×3 (07:17→19:04)
[2021-09-11 07:38] LABS: Glucose,Whole Blood 98 mg/dL (75-99)
[2021-09-11] MEDS: INSULIN ASPART (NovoLOG) 100 UNIT/ML VIAL SQ SCH ×4 (07:50→20:56)
[2021-09-11] MEDS: busPIRone HCl 10 MG TAB PO SCH ×2 (07:55→20:56)
[2021-09-11] MEDS: GABAPENTIN 300 MG CAP PO SCH ×2 (07:55→20:56)
[2021-09-11] MEDS: lisinopriL 20 MG TAB PO SCH (07:55)
[2021-09-11] MEDS: FAMOTIDINE 20 MG TAB PO SCH ×2 (07:55→17:15)
[2021-09-11] MEDS: amLODIPine 5 MG TAB PO SCH (07:56)
[2021-09-11] MEDS: clonazePAM 0.5 MG TAB PO SCH ×2 (07:56→17:15)
[2021-09-11] MEDS: lamoTRIgine 100 MG TAB PO SCH ×2 (07:56→20:56)
[2021-09-11] MEDS: NICOTINE 14MG/24HR PATCH TRANSDERM SCH (07:56)
[2021-09-11] MEDS: ENOXAPARIN 60 MG/0.6 ML SYRINGE SQ SCH (07:57)
[2021-09-11 09:28] LABS: HCT 35.8 % (37.2-46.3); MCH 30.5 pg (27.0-32.0); MCHC 30.7 g/dL (32.0-37.0); MCV 99.2 fL (80.0-97.0); Mean Platelet Volume 9.3 fL (9.5-12.2); NRBC Per 100 WBC 0 /100 WBCS (0.0-0.0); Platelet Count 177 X 10*3/uL (140-440); RBC 3.61 X 10*6/uL (4.10-5.20); WBC 10.82 X 10*3/uL (4.50-10.00)
[2021-09-11] MEDS: DIVALPROEX ER 250 MG TAB.ER.24H PO SCH (09:31)
[2021-09-11] MEDS: OLANZapine 5 MG TAB PO SCH ×2 (09:32→20:56)
[2021-09-11 10:01] LABS: African American GFR (CKD) 117.6 (60.0-200.0); Anion Gap 7.8 mmol/L (10.00-18.00); BUN/Creat Ratio 19.73 Ratio (12.00-20.00); Blood Urea Nitrogen 10.1 mg/dL (9.0-27.0); Calcium 9.6 mg/dL (8.7-10.3); Carbon Dioxide 29.8 mmol/L (20.0-27.5); Non-African American GFR(CKD) 101.5 (60.0-200.0); Potassium 3.5 mmol/L (3.5-5.5)
[2021-09-11 11:45] LABS: Glucose,Whole Blood 78 mg/dL (75-99)
--- NOTE | 2021-09-11 12:08 | P.PN ---
<Ilda, - Last Filed: 09/11/21 11:55> Subjective Progress Note Date: 09/11/21 Principal diagnosis: Altered mental status Patient is a 66-year-old female who presented to the emergency room from [facility] for altered mental status, low-grade temp and difficulty breathing. Patient has a significant medical history that includes COPD, diabetes, fibromyalgia, GERD, hypertension, osteoarthritis, history of pulmonary embolism, recent bilateral lower extremity cellulitis, IBS, history of urinary tract infections with sepsis, anxiety, bipolar, depression, and thyroid disorder. Chest x-ray found some right pleural atelectasis which was not significantly different to last exam. CT of brain and C-spine found cerebral atrophy with no acute intracranial abnormality, Spondylitic mild changes in the cervical spine with no fracture. White count was elevated at 13.9. urine was positive for red and white blood cells, yeast budding and protein. Has history of urinary retent ion with a chronic indwelling catheter. Patient was admitted for possible UTI causing mental status changes. Infectious disease was consulted. Patient was seen and examined at bedside today, continues to be confused. Oriented to self, does not answer questions correctly, does not follow simple co mmands. The patient is very tearful and mumbling random words. Spoke with the Jose Eduardo, he states that the patient has been confused since last admission in July, and has been hallucinating at [facility]. He claims that she is lucid at times, but majority of the time is confused and talks to people that are not in the room. Patient does have a history of psychiatric disorders, psychiatry was consulted to review medications. Patient also had a fall on Wednesday, September 01 2021 at [facility]. Right ankle x-ray showed transverse fracture of the medial and lateral malleolus. Right ankle is wrapped, [facility], consulted orthopedics to see patient while in hospital. White count improved to 11.4 today. Husain catheter was replaced. 09/05/2021 Patient was seen and examined at bedside. She was resting comfortably in bed, responded to touch. Oriented to self, continues to be confused. No complications overnight. Antibiotics were started for suspected UTI secondary to catheter insertion. We'll repeat blood work tomorrow morning. Urine culture pending. Awaiting psychiatry and orthopedic recommendations for treatment plan. Hospitalist coverage /09/09/2021 Patient was seen and examined at bedside. Patient is resting comfortably in bed, in no acute distress. Responded to touch, oriented to self, continues to be confused. Unable to speak in a sentence. Patient was supposed to be discharged yesterday but had to wait for midline placement. Urine culture showed Pseudomonas and enterobacter, infectious disease recommending IV antibiotics for 1 week after discharge. Right Ankle was splinted, will follow up with orthopedics outpatient. Psychiatry made adjustments to medications, is recommending inpatient geriatric psych treatment, case management was notified. 09/10/2021 Patient seen and examined at bedside. Patient resting in bed, no acute distress. Patient is oriented to self and place, not time. Able to speak in sentences, agitated, wanting to talk to her . Right ankle continues to be splinted. Patient is to be discharged on IV antibiotics, however psych recommends inpatient geriatric psych treatment. Social work is working on locating facility that can accommodate IV antibiotic treatment and older adult psych services. 09/11/2021 Patient was seen and assessed at bedside. Patient is resting comfortably in bed, in no acute distress. Patient is oriented to self and place, not time. Patient's mental status has improved, short-term memory is improving. Becomes upset when speaking about discharge plan, states she does not want to be stuck here. Patient wants to return to [facility] for rehab. Social work states she is unable to find a facility that will accommodate the patient's needs, supplemental oxygen, IV antibiotics for one week and lack of mobility. Andrew burgos was requested to reevaluate the patient's need to attend inpatient geriatric psych vs returning to rehab. Will await recommendations. Objective - Vital Signs Vital signs: Vital Signs Temp 97.8 F 09/11/21 08:00 Pulse 81 09/11/21 08:00 Resp 20 09/11/21 08:00 BP 134/74 09/11/21 08:00 Pulse Ox 93 L 09/11/21 07:21 Intake & Output 09/10/21 09/11/21 09/11/21 18:59 06:59 18:59 Output Total 300 400 Balance -300 -400 Weight 113.398 kg Output: Urine 300 400 Other: Voiding Method Indwelling Catheter Indwelling Catheter Indwelling Catheter - Constitutional General appearance: Present: no acute distress, obese - EENT Eyes: Present: EOMI ENT: Present: normal oropharynx Ears: bilateral: normal - Neck Neck: Present: normal ROM Carotids: bilateral: upstroke normal - Respiratory Respiratory: bilateral: diminished - Cardiovascular Heart rate: 90 Rhythm: regular Heart sounds: normal: S1, S2 - Peripheral pulses radial pulse Peripheral Pulses: bilateral: Normal - Gastrointestinal General gastrointestinal: Present: normal bowel sounds, soft - Integumentary Integumentary: Present: normal, normal turgor - Neurologic Neurologic: Present: focal deficits - Musculoskeletal Musculoskeletal: Present: generalized weakness - Psychiatric Psychiatric Comment(s): A&Ox2, improvement in memory recall, alert, able to speak in sentences - Allied health notes Allied health notes reviewed: nursing - Labs CBC & Chem 7: 09/11/21 06:22 09/11/21 06:22 Labs: Abnormal Lab Results - Last 24 Hours (Table) 09/10/21 09/11/21 09/11/21 Range/Units 20:21 06:22 06:22 WBC 10.82 H (4.50-10.00) X 10*3/uL RBC 3.61 L (4.10-5.20) X 10*6/uL Hgb 11.0 L (12.0-15.0) g/dL Hct 35.8 L (37.2-46.3) % MCV 99.2 H (80.0-97.0) fL MCHC 30.7 L (32.0-37.0) g/dL MPV 9.3 L (9.5-12.2) fL Carbon Dioxide 29.8 H (20.0-27.5) mmol/L Anion Gap 7.80 L (10.00-18.00) mmol/L Creatinine 0.5 L (0.6-1.5) mg/dL POC Glucose (mg/dL) 125 H (75-99) mg/dL Assessment and Plan Assessment: Altered mental status, confusion improving Acute urinary tract infection, secondary to Husain catheter Transverse fracture of right malleolus Bipolar disorder, manic episode, psychotic features, symptoms improving Urinary retention, chronic indwelling catheter Hypertension COPD without exacerbation, maintained on 4 L of oxygen Diabetes melitis, not on oral medication Anxiety History of GERD History of pulmonary embolism, on Lovenox DO NOT RESUSCITATE Plan: Continue following infectious disease recommendations for urinary tract infection, IV antibiotics continue for one more week Psychiatry consultation for altered mental status, persistent confusion and hallucinations, requested re-evaluation of need for in patient psych treatment Recent ankle fracture, will follow-up outpatient Sliding-scale insulin for glucose control Continue current medication regimen Continue to monitor vital signs and mental status Awaiting recommendation for geriatric inpatient psych treatment versus returning to [facility] for rehab Further recommendations to come based on patient's clinical course Time with Patient: Greater than 30 <Andrzej Wheeler - Last Filed: 09/11/21 19:22> Subjective I have personally seen and examined the patient, reviewed the documentation and agree with the assessment and plan as written. Number of minutes spent on the visit: [greater than 15]. Objective - Vital Signs Vital signs: Vital Signs Temp 98.0 F 09/11/21 12:28 Pulse 72 09/11/21 19:11 Resp 18 09/11/21 12:28 BP 162/71 09/11/21 12:28 Pulse Ox 94 L 09/11/21 19:04 Intake & Output 09/11/21 09/11/21 09/12/21 06:59 18:59 06:59 Intake Total 720 Output Total 400 500 Balance -400 220 Intake: Oral 720 Output: Urine 400 500 Other: Voiding Method Indwelling Catheter Indwelling Catheter - Labs CBC & Chem 7: 09/11/21 06:22 09/11/21 06:22 Labs: Abnormal Lab Results - Last 24 Hours (Table) 09/10/21 09/11/21 09/11/21 Range/Units 20:21 06:22 06:22 WBC 10.82 H (4.50-10.00) X 10*3/uL RBC 3.61 L (4.10-5.20) X 10*6/uL Hgb 11.0 L (12.0-15.0) g/dL Hct 35.8 L (37.2-46.3) % MCV 99.2 H (80.0-97.0) fL MCHC 30.7 L (32.0-37.0) g/dL MPV 9.3 L (9.5-12.2) fL Carbon Dioxide 29.8 H (20.0-27.5) mmol/L Anion Gap 7.80 L (10.00-18.00) mmol/L Creatinine 0.5 L (0.6-1.5) mg/dL POC Glucose (mg/dL) 125 H (75-99) mg/dL 09/11/21 Range/Units 16:47 WBC (4.50-10.00) X 10*3/uL RBC (4.10-5.20) X 10*6/uL Hgb (12.0-15.0) g/dL Hct (37.2-46.3) % MCV (80.0-97.0) fL MCHC (32.0-37.0) g/dL MPV (9.5-12.2) fL Carbon Dioxide (20.0-27.5) mmol/L Anion Gap (10.00-18.00) mmol/L Creatinine (0.6-1.5) mg/dL POC Glucose (mg/dL) 106 H (75-99) mg/dL
--- NOTE | 2021-09-11 16:42 | PN ---
PROGRESS NOTE DATE OF SERVICE: September 11, 2021. INTERVAL HISTORY: Patient was seen today for psychiatric followup regarding patient's bipolar disorder. Patient was seen previously by Dr. Tan for consultation initially and was deemed to be in a manic episode and also meeting criteria initially for geriatric psychiatric hospitalization. The patient was seen at the bedside watching television and agreeable to speak to speech writer. She appeared to be fairly appropriate during conversation. She was directable during the interview. She spoke about her mood improving and is denying any anxiety today. She states that she was able to sleep a bit better last night. She claims that her appetite has been gradually improving. She was alert and oriented x3 today. She appeared to be morbidly obese and was rambling at times. She claims that she would like to go back to [facility] for rehab at this time. She is currently denying any suicidal or homicidal ideations, intent, or plan. She is denying any auditory or visual hallucinations. Not endorsing any delusions or paranoia today. MENTAL STATUS EXAM: The patient is a morbidly obese, disheveled hair, directable and alert. Psychomotor slowing. Not having any tremors. She was wearing a hospital gown and lying in her bed. She claims that her mood is "fine" and affect was constricted and congruent. Rambling at times, logical and goal oriented. Not endorsing any delusions or paranoia. Denying any suicidal or homicidal ideations, intent, or plan. Not endorsing any auditory or visual hallucinations. Alert and oriented x3, calmer. Slow attention span. Judgment limited. Insight, limited. ASSESSMENT: Bipolar disorder. PLAN OF TREATMENT: The patient, at this time, does not meet criteria for inpatient psychiatric hospitalization as she is psychiatrically improving, and not an immediate threat to harm to herself and/or others. She is not exhibiting any floridly psychotic symptoms. The patient is much better suited to be discharged to rehab at this time. Can continue current medications as prescribed. We will attempt to limit the patient's opiate and benzodiazepines as this may trigger delirium or confusion or even possibly falls. Please give the patient referrals for mental health followup. Communicated plan with the patient's nurse. At this time Psychiatry will sign off. Please contact the mental health unit with any further questions. MMODL / IJN: [id number] /
[2021-09-11 16:49] LABS: Glucose,Whole Blood 106 mg/dL (75-99)
[2021-09-11 20:20] LABS: Glucose,Whole Blood 99 mg/dL (75-99)
[2021-09-11] MEDS: MONTELUKAST 10 MG TAB PO SCH (20:56)
[2021-09-12 04:40] VITALS: RESP 20
[2021-09-12] MEDS: LEVOTHYROXINE 75 MCG TAB PO SCH (05:36)
[2021-09-12 07:18] LABS: Glucose,Whole Blood 74 mg/dL (75-99)
[2021-09-12] MEDS: INSULIN ASPART (NovoLOG) 100 UNIT/ML VIAL SQ SCH ×2 (07:24→12:37)
[2021-09-12] MEDS: SYMBICORT 160-4.5 MCG INHALER INHALATION SCH (07:24)
[2021-09-12] MEDS: ALBUTEROL NEBULIZED 2.5 MG/3 ML INHALATION SCH ×2 (07:24→11:27)
[2021-09-12] MEDS: busPIRone HCl 10 MG TAB PO SCH (08:58)
[2021-09-12] MEDS: FAMOTIDINE 20 MG TAB PO SCH (08:58)
[2021-09-12] MEDS: lamoTRIgine 100 MG TAB PO SCH (08:58)
[2021-09-12] MEDS: GABAPENTIN 300 MG CAP PO SCH (08:58)
[2021-09-12] MEDS: NICOTINE 14MG/24HR PATCH TRANSDERM SCH (08:58)
[2021-09-12] MEDS: ENOXAPARIN 60 MG/0.6 ML SYRINGE SQ SCH (08:58)
[2021-09-12] MEDS: clonazePAM 0.5 MG TAB PO SCH (08:59)
[2021-09-12] MEDS: lisinopriL 20 MG TAB PO SCH (08:59)
[2021-09-12] MEDS: amLODIPine 5 MG TAB PO SCH (08:59)
[2021-09-12] MEDS: CEFEPIME 2 GM in SODIUM CHLORIDE 0.9% 100 ML IVPB SCH (08:59)
[2021-09-12] MEDS: DIVALPROEX ER 250 MG TAB.ER.24H PO SCH (09:00)
[2021-09-12] MEDS: OLANZapine 5 MG TAB PO SCH (09:00)
--- NOTE | 2021-09-12 10:13 | P.PN ---
Subjective Progress Note Date: 09/10/21 Principal diagnosis: Catheter associated urinary tract infection Patient is a 66-year-old female with recent right ankle fracture for the patient is in splint admitted from the local correction with mental status changes and concern for urinary tract infection catheter associated. On today's evaluation that is 09/10/2021, the patient remains to be afebrile, the patient denies any headache no chest pain shortness of breath or cough , the patient denies abdominal pain no diarrhea with antibiotic therapy Objective - Vital Signs Vital signs: Vital Signs Temp 98.5 F 09/10/21 05:00 Pulse 70 09/10/21 07:23 Resp 20 09/10/21 05:00 BP 174/88 09/10/21 05:00 Pulse Ox 97 09/10/21 07:12 Intake & Output 09/09/21 09/10/21 09/10/21 18:59 06:59 18:59 Intake Total 200 600 Output Total 750 3600 Balance -550 -3000 Intake: Intake, IV Titration 200 400 Amount Cefepime 2 gm In Sodium 200 100 Chloride 0.9% 100 ml @ 25 mls/hr IVPB Q8HR JEIMY Rx# :[id number] Dextrose 5%-0.9% NaCl 1, 300 000 ml @ 75 mls/hr IV . [id number] JEIMY Rx#:[id number] Oral 200 Output: Urine 750 3600 Uretheral (Husain) 1800 Other: Voiding Method Indwelling Catheter Indwelling Catheter Indwelling Catheter - Exam GENERAL DESCRIPTION: A middle-age female lying in bed in no distress RESPIRATORY SYSTEM: Unlabored breathing , decreased breath sounds at bases HEART: S1 S2 regular rate and rhythm , ABDOMEN: Soft , no tenderness EXTREMITIES: Right leg is currently covered with a cast - Labs CBC & Chem 7: 09/11/21 06:22 09/11/21 06:22 Labs: Abnormal Lab Results - Last 24 Hours (Table) 09/09/21 09/09/21 Range/Units 13:14 14:33 WBC 23.9 H (3.8-10.6) k/uL Neutrophils # 18.1 H (1.3-7.7) k/uL Monocytes # 2.9 H (0-1.0) k/uL Sodium 134 L (137-145) mmol/L Creatinine 0.51 L (0.52-1.04) mg/dL Total Protein 4.9 L (6.3-8.2) g/dL Albumin 2.4 L (3.5-5.0) g/dL Assessment and Plan (1) UTI (urinary tract infection) Current Visit: Yes Status: Acute Code(s): N39.0 - URINARY TRACT INFECTION, SITE NOT SPECIFIED SNOMED Code(s): 43480735 Plan: 1-Patient presented to hospital with mental status changes patient did have a low-grade fever elevated white count source likely catheter associated tract infection likely from enteric gram-negative pathogen patient being a correction resident we need to cover for resistant gram-negative. Urine showing Enterobacter and Pseudomonas sensitive to cefepime, Pseudomonas is resistant to Cipro, Patient to continue with cefepime 2 g every 8 hours to which the patient seemed to have responded, and monitor clinical course closely Time with Patient: Less than 30
--- NOTE | 2021-09-12 10:14 | P.PN ---
Subjective Progress Note Date: 09/11/21 Principal diagnosis: Catheter associated urinary tract infection Patient is a 66-year-old female with recent right ankle fracture for the patient is in splint [facility] with mental status changes and concern for urinary tract infection catheter associated. On today's evaluation that is 09/11/2021, the patient denies any fever or any chills, the patient denies any headache, the patient denies chest pain shortness of breath or cough , the patient denies abdominal pain no diarrhea with antibiotic therapy Objective - Vital Signs Vital signs: Vital Signs Temp 98.0 F 09/11/21 12:28 Pulse 73 09/11/21 12:28 Resp 18 09/11/21 12:28 BP 162/71 09/11/21 12:28 Pulse Ox 96 09/11/21 12:28 Intake & Output 09/10/21 09/11/21 09/11/21 18:59 06:59 18:59 Output Total 300 400 Balance -300 -400 Weight 113.398 kg Output: Urine 300 400 Other: Voiding Method Indwelling Catheter Indwelling Catheter Indwelling Catheter - Exam GENERAL DESCRIPTION: A middle-age female lying in bed in no distress RESPIRATORY SYSTEM: Unlabored breathing , decreased breath sounds at bases HEART: S1 S2 regular rate and rhythm , ABDOMEN: Soft , no tenderness EXTREMITIES: Right leg is currently covered with a cast - Labs CBC & Chem 7: 09/11/21 06:22 09/11/21 06:22 Labs: Abnormal Lab Results - Last 24 Hours (Table) 09/10/21 09/11/21 09/11/21 Range/Units 20:21 06:22 06:22 WBC 10.82 H (4.50-10.00) X 10*3/uL RBC 3.61 L (4.10-5.20) X 10*6/uL Hgb 11.0 L (12.0-15.0) g/dL Hct 35.8 L (37.2-46.3) % MCV 99.2 H (80.0-97.0) fL MCHC 30.7 L (32.0-37.0) g/dL MPV 9.3 L (9.5-12.2) fL Carbon Dioxide 29.8 H (20.0-27.5) mmol/L Anion Gap 7.80 L (10.00-18.00) mmol/L Creatinine 0.5 L (0.6-1.5) mg/dL POC Glucose (mg/dL) 125 H (75-99) mg/dL Assessment and Plan (1) UTI (urinary tract infection) Current Visit: Yes Status: Acute Code(s): N39.0 - URINARY TRACT INFECTION, SITE NOT SPECIFIED SNOMED Code(s): 00645152 Plan: 1-Patient presented to hospital with mental status changes patient did have a low-grade fever elevated white count source likely catheter associated tract infection likely from enteric gram-negative pathogen patient being a [facility] resident we need to cover for resistant gram-negative. Urine showing Enterobacter and Pseudomonas sensitive to cefepime, Pseudomonas is resistant to Cipro, Patient to continue with cefepime 2 g every 8 hours to finish a two-week course of therapy patient has already received about 8 days of antibiotic Time with Patient: Less than 30
--- NOTE | 2021-09-12 11:51 | P.DS ---
Providers Date of admission: 09/03/21 21:40 Expected date of discharge: 09/12/21 Attending physician: Andrzej Wheeler Consults: 09/03/21 22:07 Consult Physician Routine Consulting Provider: Briseida Mcdonald Consult Reason/Comments: suspected UTI, indwelling jennings Do you want consulting provider notified?: Yes, Notify in am 09/04/21 10:56 Consult Physician Routine Consulting Provider: Arnel Hernandez Consult Reason/Comments: bipolar, persistant confusion with hallucinations Do you want consulting provider notified?: Yes Primary care physician: Andrzej Wheeler [facility] Course: Patient is a 66-year-old female who presented to the emergency room from [facility] for altered mental status, low-grade temp and difficulty breathing. Patient has a significant medical history that includes COPD, diabetes, fibromyalgia, GERD, hypertension, osteoarthritis, history of pulmonary embolism, recent bilateral lower extremity cellulitis, IBS, history of urinary tract infections with sepsis, anxiety, bipolar, depression, and thyroid disorder. Chest x-ray found some right pleural atelectasis which was not significantly different to last exam. CT of brain and C-spine found cerebral atrophy with no acute intracranial abnormality, Spondylitic mild changes in the cervical spine with no fracture. White count was elevated at 13.9. urine was positive for red and white blood cells, yeast budding and protein. Has history of urinary retention with a chronic indwelling catheter. Patient was admitted for possible UTI causing mental status changes. Infectious disease was consulted. Patient was seen and examined at bedside today, continues to be confused. Oriented to self, does not answer questions correctly, does not follow simple commands. The patient is very tearful and mumbling random words. Spoke with the Jose Eduardo, he states that the patient has been confused since last admission in July, and has been hallucinating at [facility]. He claims that she is lucid at times, but majority of the time is confused and talks to people that are not in the room. Patient does have a history of psychiatric disorders, psychiatry was consulted to review medications. Patient also had a fall on Wednesday, September 01 2021 at [facility]. Right ankle x-ray showed transverse fracture of the medial and lateral malleolus. Right ankle is wrapped, was [facility], consulted orthopedics to see patient while in hospital. White count improved to 11.4 today. Jennings catheter was replaced. 09/05/2021 Patient was seen and examined at bedside. She was resting comfortably in bed, responded to touch. Oriented to self, continues to be confused. No complications overnight. Antibiotics were started for suspected UTI secondary to catheter insertion. We'll repeat blood work tomorrow morning. Urine culture pending. Awaiting psychiatry and orthopedic recommendations for treatment plan. Hospitalist coverage /09/09/2021 Patient was seen and examined at bedside. Patient is resting comfortably in bed, in no acute distress. Responded to touch, oriented to self, continues to be confused. Unable to speak in a sentence. Patient was supposed to be discharged yesterday but had to wait for midline placement. Urine culture showed Pseudomonas and enterobacter, infectious disease recommending IV antibiotics for 1 week after discharge. Right Ankle was splinted, will follow up with orthopedics outpatient. Psychiatry made adjustments to medications, is recommending inpatient geriatric psych treatment, case management was notified. 09/10/2021 Patient seen and examined at bedside. Patient resting in bed, no acute distress. Patient is oriented to self and place, not time. Able to speak in sentences, agitated, wanting to talk to her . Right ankle continues to be splinted. Patient is to be discharged on IV antibiotics, however psych recommends inpatient geriatric psych treatment. Social work is working on locating facility that can accommodate IV antibiotic treatment and older adult psych services. 09/11/2021 Patient was seen and assessed at bedside. Patient is resting comfortably in bed, in no acute distress. Patient is oriented to self and place, not time. Patient's mental status has improved, short-term memory is improving. Becomes upset when speaking about discharge plan, states she does not want to be stuck here. Patient wants to return to [facility] for rehab. Social work states she is unable to find a facility that will accommodate the patient's needs, supplemental oxygen, IV antibiotics for one week and lack of mobility. Psychiatry was requested to reevaluate the patient's need to attend inpatient geriatric psych vs returning to rehab. Will await recommendations. 09/12/21 Patient was seen and examined at bedside. Patient resting comfortably in bed, in no acute distress. Patient is oriented to self and place, not time. Patient's mental status has improved, short-term memory is improving. Patient was cleared by psychiatry to return to [facility] for rehab, will follow up outpatient with psych and ortho services. Patient will continue to receive IV antibiotics for 6 more days for UTI treatment per infectious disease. Patient is stable for discharge at this time. Assessment: Altered mental status Acute urinary tract infection, culture present on admission with pseudomonas aeruginosa and Enterobacter species Transverse fracture of right malleolus History of Bipolar disorder Urinary retention, chronic indwelling catheter Hypertension COPD without exacerbation, maintained on 4 L of oxygen Diabetes mellitus, not on oral medication Anxiety History of GERD History of pulmonary embolism, on Lovenox DO NOT RESUSCITATE Health Concerns: multiple comorbidities Pertinent Studies: Chest xray found some pleural reaction and atelectasis, same as previous exam CT of brain found cerebral atrophy without acute findings. Procedures: 09/09/21- Midline placed Patient Condition at Discharge: Fair Plan - Discharge Summary Discharge Rx Participant: No New Discharge Prescriptions: New Cefepime [Maxipime] 2 gm IVPB Q8HR 7 Days each Divalproex ER [Depakote ER] 750 mg PO DAILY #1 tab OLANZapine [ZyPREXA] 5 mg PO BID #2 tab Continue busPIRone HCL [Buspar] 30 mg PO BID@0800,2100 Montelukast [Singulair] 10 mg PO HS Albuterol Sulfate [Proair Hfa] 2 puff INHALATION RT-Q6H PRN PRN Reason: Shortness Of Breath Levothyroxine Sodium [Synthroid] 150 mcg PO SUTHFRSA@0600 Albuterol Nebulized [Ventolin Nebulized] 2.5 mg INHALATION RT-TID@06,14,21 Ensure Enlive 237 ml PO TID@0800,1200,1700 Acetaminophen Tab [Tylenol] 650 mg PO Q4H PRN PRN Reason: Fever And/ Or Pain Magnesium Hydroxide [Milk of Magnesia Concentrate] 7,200 mg PO Q48H PRN PRN Reason: Constipation lisinopriL 20 mg PO DAILY@0800 Budesonide/Formoterol Fumarate [Symbicort 160-4.5 Mcg Inhaler] 2 puff INHALATION RT-BID@0800,1700 Levothyroxine Sodium [Synthroid] 175 mcg PO MOTUWE@0600 Na Phos,M-B/Na Phos,Di-Ba [Fleet Adult] 133 ml RECTAL DAILY PRN PRN Reason: Constipation amLODIPine [Norvasc] 5 mg PO DAILY@0800 Enoxaparin [Lovenox] 60 mg SQ DAILY@0800 Famotidine [Pepcid] 20 mg PO BID@0800,1700 lamoTRIgine [LaMICtal] 100 mg PO BID@0800,2100 Nicotine 14Mg/24Hr Patch [Habitrol] 1 patch TRANSDERM DAILY@0800 Changed Gabapentin [Neurontin] 300 mg PO BID@0800,2100 #1 cap clonazePAM [KlonoPIN] 0.5 mg PO BID@0800,1700 #1 tab Discontinued Citalopram Hydrobromide [CeleXA] 20 mg PO DAILY@0800 Divalproex ER [Depakote ER] 1,500 mg PO HS bisacodyL 10 mg RECTAL DAILY PRN PRN Reason: Constipation Discharge Medication List Montelukast [Singulair] 10 mg PO HS 12/17/13 [History] busPIRone HCL [Buspar] 30 mg PO BID@0800,2100 12/17/13 [History] Albuterol Sulfate [Proair Hfa] 2 puff INHALATION RT-Q6H PRN 05/07/18 [History] Levothyroxine Sodium [Synthroid] 150 mcg PO SUTHFRSA@0600 03/29/20 [History] lisinopriL 20 mg PO DAILY@0800 10/05/20 [History] Albuterol Nebulized [Ventolin Nebulized] 2.5 mg INHALATION RT-TID@,,06/12/21 [History] Budesonide/Formoterol Fumarate [Symbicort 160-4.5 Mcg Inhaler] 2 puff INHALATION RT-BID@0800,1700 06/12/21 [History] Acetaminophen Tab [Tylenol] 650 mg PO Q4H PRN 09/03/21 [History] Enoxaparin [Lovenox] 60 mg SQ DAILY@0800 09/03/21 [History] Ensure Enlive 237 ml PO TID@0800,1200,1700 09/03/21 [History] Famotidine [Pepcid] 20 mg PO BID@0800,1700 09/03/21 [History] Levothyroxine Sodium [Synthroid] 175 mcg PO MOTUWE@0600 09/03/21 [History] Magnesium Hydroxide [Milk of Magnesia Concentrate] 7,200 mg PO Q48H PRN 09/03/21 [History] Na Phos,M-B/Na Phos,Di-Ba [Fleet Adult] 133 ml RECTAL DAILY PRN 09/03/21 [History] Nicotine 14Mg/24Hr Patch [Habitrol] 1 patch TRANSDERM DAILY@0800 09/03/21 [History] amLODIPine [Norvasc] 5 mg PO DAILY@0800 09/03/21 [History] lamoTRIgine [LaMICtal] 100 mg PO BID@0800,2100 09/03/21 [History] Cefepime [Maxipime] 2 gm IVPB Q8HR 7 Days each 09/11/21 [Rx] Divalproex ER [Depakote ER] 750 mg PO DAILY #1 tab 09/11/21 [Rx] Gabapentin [Neurontin] 300 mg PO BID@0800,2100 #1 cap 09/12/21 [Rx] OLANZapine [ZyPREXA] 5 mg PO BID #2 tab 09/12/21 [Rx] clonazePAM [KlonoPIN] 0.5 mg PO BID@0800,1700 #1 tab 09/12/21 [Rx] Follow up Appointment(s)/Referral(s): Andrzej Wheeler MD [Primary Care Provider] - 1-2 days Froy Aguirre MD [Medical Doctor] - 1 Week Activity/Diet/Wound Care/Special Instructions: Keep splint clean and dry. Elevate and ice right ankle. Non-weightbearing right lower extremity. Follow up with [facility] after discharge. Jennings catheter to stay in place at discharge, history of retention. Replace according to facility protocol. Discharge Disposition: TRANSFER TO SNF/ECF
[2021-09-12 11:56] LABS: Glucose,Whole Blood 78 mg/dL (75-99)
[2021-09-12 12:32] VITALS: BP 184/72; PULSE 66; TEMP 98.3
== END 2021-09-12 15:40 | DRG 698 ==
LOC: EC 18:33 → 5NMEDONC 21:40
PROVIDERS: ADMIT Family Medicine; ATTEND Family Medicine
PROC: 05HF33Z Insertion of Infusion Device into Left Cephalic Vein, Percutaneous Approach (ICD-10-PCS; principal; 2021-09-09 07:30)
DX: T83.511A Infection and inflammatory reaction due to indwelling urethral catheter, initial encounter (principal); G92.8 Other toxic encephalopathy; J98.11 Atelectasis; N39.0 Urinary tract infection, site not specified; E11.9 Type 2 diabetes mellitus without complications; F17.200 Nicotine dependence, unspecified, uncomplicated; F31.9 Bipolar disorder, unspecified; F41.9 Anxiety disorder, unspecified; I10 Essential (primary) hypertension; J44.9 Chronic obstructive pulmonary disease, unspecified; M41.9 Scoliosis, unspecified; M79.7 Fibromyalgia; R09.02 Hypoxemia; Z20.822 Contact with and (suspected) exposure to COVID-19; Y84.6 Urinary catheterization as the cause of abnormal reaction of the patient, or of later complication, without mention of misadventure at the time of the procedure; S82.841A Displaced bimalleolar fracture of right lower leg, initial encounter for closed fracture; W19.XXXA Unspecified fall, initial encounter; Z66 Do not resuscitate; Z79.51 Long term (current) use of inhaled steroids; Z79.890 Hormone replacement therapy; Z79.899 Other long term (current) drug therapy; Z82.49 Family history of ischemic heart disease and other diseases of the circulatory system; Z86.711 Personal history of pulmonary embolism; Z86.010 Personal history of colon polyps; Z87.440 Personal history of urinary (tract) infections; Z90.710 Acquired absence of both cervix and uterus; Z98.84 Bariatric surgery status; Z88.5 Allergy status to narcotic agent; Z88.0 Allergy status to penicillin; Z88.2 Allergy status to sulfonamides; B96.5 Pseudomonas (aeruginosa) (mallei) (pseudomallei) as the cause of diseases classified elsewhere; B96.89 Other specified bacterial agents as the cause of diseases classified elsewhere; Z99.81 Dependence on supplemental oxygen
CPT/HCPCS: 36410; 36415; 70450; 71045; 72125; 76937; 80048; 80053; 81001; 82140; 84443; 85025; 85027; 85610; 85730; 87077; 87086; 87186; 87635; 93005; 94640; 94760; 96374; 99285

== ENCOUNTER 2021-10-07 20:37 | Inpatient (IN) | payer MEDICARE ==
--- NOTE | 2021-10-07 21:38 | ED ---
Altered Mental Status HPI - General Chief Complaint: Altered Mental Status Stated Complaint: AMS Time Seen by Provider: 10/07/21 21:13 Source: EMS Mode of arrival: EMS Limitations: altered mental status (Dementia versus delirium) - History of Present Illness Initial Comments: 's patient is a 66-year-old woman transferred here from [facility] to be evaluated for altered mental status. Patient had reportedly had a fall from bed early this evening. She was found lying half in the bed and half out. The patient herself denies any pain. She denies dyspnea, but she is having some difficulty in expressing needs to her . MD Complaint: altered mental status, confusion -: hour(s) Severity: moderate Context: COPD Associated Symptoms: denies other symptoms - Related Data Home Medications Medication Instructions Recorded Confirmed Montelukast [Singulair] 10 mg PO HS@209912/17/13 10/26/21 busPIRone HCL [Buspar] 30 mg PO BID@0800,2100 12/17/13 10/26/21 Albuterol Sulfate [Proair Hfa] 2 puff INHALATION RT-Q6H PRN 05/07/18 10/26/21 Levothyroxine Sodium [Synthroid] 150 mcg PO SUTHFRSA@0600 03/29/20 10/26/21 lisinopriL 20 mg PO DAILY@0800 10/05/20 10/26/21 Albuterol Nebulized [Ventolin 2.5 mg INHALATION RT-TID@,,06/12/21 10/26/21 Nebulized] Budesonide/Formoterol Fumarate 2 puff INHALATION RT-BID@0800,1700 06/12/21 10/26/21 [Symbicort 160-4.5 Mcg Inhaler] Acetaminophen Tab [Tylenol] 650 mg PO Q4H PRN 09/03/21 10/26/21 Enoxaparin [Lovenox] 60 mg SQ DAILY@0800 09/03/21 10/26/21 Ensure Enlive 237 ml PO TID@0800,1200,1700 09/03/21 10/26/21 Famotidine [Pepcid] 20 mg PO BID@0800,1700 09/03/21 10/26/21 Levothyroxine Sodium [Synthroid] 175 mcg PO MOTUWE@0600 09/03/21 10/26/21 Magnesium Hydroxide [Milk of 7,200 mg PO Q48H PRN 09/03/21 10/26/21 Magnesia Concentrate] Na Phos,M-B/Na Phos,Di-Ba [Fleet 133 ml RECTAL DAILY PRN 09/03/21 10/26/21 Adult] Nicotine 14Mg/24Hr Patch [Habitrol] 1 patch TRANSDERM DAILY@0809/03/21 10/26/21 amLODIPine [Norvasc] 5 mg PO DAILY@0800 09/03/21 10/26/21 lamoTRIgine [LaMICtal] 100 mg PO BID@0800,209909/03/21 10/26/21 Divalproex ER [Depakote ER] 750 mg PO HS@209910/07/21 10/26/21 OLANZapine [ZyPREXA] 10 mg PO HS@209910/07/21 10/26/21 bisacodyL [Dulcolax] 10 mg RECTAL DAILY PRN 10/07/21 10/26/21 Furosemide [Lasix] 20 mg PO DAILY@0800 10/26/21 10/26/21 Potassium Chloride ER [K-Dur 20] 20 meq PO DAILY@0800 10/26/21 10/26/21 Tamsulosin [Flomax] 0.4 mg PO DAILY@1100 10/26/21 10/26/21 clonazePAM [KlonoPIN] 1 mg PO TID@0800,1400,2100 10/26/21 10/26/21 Previous Rx's Medication Instructions Recorded Gabapentin [Neurontin] 300 mg PO BID@0800,2100 #6 cap 10/14/21 Ciprofloxacin HCl [Cipro] 250 mg PO BID 5 Days #10 tab 10/26/21 Allergies Allergy/AdvReac Type Severity Reaction Status Date / Time codeine Allergy Unknown Verified 10/26/21 21:10 Childhood Penicillins Allergy Rash/Hives Verified 10/26/21 21:10 Sulfa (Sulfonamide Allergy Rash/Hives Verified 10/26/21 21:10 Antibiotics) Review of Systems ROS Statement: Those systems with pertinent positive or pertinent negative responses have been documented in the HPI. ROS Other: All systems not noted in ROS Statement are negative. Limitations: ROS unobtainable due to patients medical condition (Dementia versus delirium) Constitutional: Denies: fever Respiratory: Reports: cough. Denies: dyspnea Cardiovascular: Denies: chest pain, edema Gastrointestinal: Denies: abdominal pain, vomiting, diarrhea Musculoskeletal: Denies: back pain Skin: Denies: rash Neurological: Denies: headache Past Medical History Past Medical History: Asthma, COPD, Diabetes Mellitus, Fibromyalgia, GERD/Reflux, Hypertension, Osteoarthritis (OA), Pneumonia, Pulmonary Embolus (PE), Skin Disorder, Thyroid Disorder Additional Past Medical History / Comment(s): Cervical disc disease/stenosis, scoliosis, recently having numbness/tingling L side of face/neck, recently saw manager packaging for L hemidiaphragmatic elevation-pt states she was told this was probably genetic, recently bronchitis and past bronchitis, pt states recent med change (water pill) d/t electrolyte problem/kidney function being affected, pt states she has had pulmonary emboli, past bilateral lower extremity cellulitis, edema lower extremities, IBS, hemorrhoids, benign colon polyps, sinus problems, UTIs, bacteremia/sepsis, cardiac murmur, past L ankle and L wrist fractures. History of Any Multi-Drug Resistant Organisms: None Reported Past Surgical History: Adenoidectomy, Section, Cholecystectomy, Hysterectomy, Tonsillectomy Additional Past Surgical History / Comment(s): EGD, colonoscopies, gastric bypass, surgery for deviated septum Past Anesthesia/Blood Transfusion Reactions: Previous Problems w/ Anesthesia Additional Past Anesthesia/Blood Transfusion Reaction / Comment(s): itching, some kind of problem after gastric bypass-not sure what happened Past Psychological History: Anxiety, Bipolar, Depression Smoking Status: Smoker, current status unknown Past Alcohol Use History: None Reported Past Drug Use History: None Reported - Past Family History Mother Family Medical History: Congestive Heart Failure (CHF), Hypertension Father Additional Family Medical History / Comment(s): Father at the age of 45 yrs d/t having had rheumatic fever as a child and heart valve disease. General Exam General appearance: alert, anxious Head exam: Present: atraumatic, normocephalic Eye exam: Present: normal appearance, PERRL, EOMI. Absent: scleral icterus, conjunctival injection Neck exam: Present: normal inspection, full ROM Respiratory exam: Present: normal lung sounds bilaterally, wheezes. Absent: respiratory distress, rales, rhonchi, stridor, chest wall tenderness, accessory muscle use Cardiovascular Exam: Present: regular rate, normal rhythm, normal heart sounds. Absent: systolic murmur, diastolic murmur, rubs, gallop GI/Abdominal exam: Present: soft. Absent: distended, tenderness, guarding, rebound, rigid, mass Extremities exam: Present: normal inspection, normal capillary refill, other (Short leg cast right leg). Absent: pedal edema Back exam: Present: normal inspection Neurological exam: Present: alert. Absent: oriented X3 (Patient oriented to person and place could not state the exact date) Psychiatric exam: Present: anxious Skin exam: Present: warm, dry, intact, normal color. Absent: rash Course Vital Signs 10/07/21 10/07/21 10/07/21 20:40 22:06 23:40 Temperature 97.0 F L Pulse Rate 71 78 Pulse Rate [ Pulse Oximetery ] Respiratory 18 18 Rate Blood Pressure 154/71 140/75 Blood Pressure [Left Arm] O2 Sat by Pulse 93 L 92 L 89 L Oximetry 10/08/21 10/08/21 10/08/21 00:00 00:40 04:02 Temperature 101.2 F H Pulse Rate 96 83 Pulse Rate [ Pulse Oximetery ] Respiratory 20 24 28 H Rate Blood Pressure 113/73 121/43 Blood Pressure [Left Arm] O2 Sat by Pulse 91 L 90 L 92 L Oximetry 10/08/21 10/08/21 10/08/21 04:08 06:31 08:00 Temperature 99.8 F H 97.9 F Pulse Rate 81 86 Pulse Rate [ 77 Pulse Oximetery ] Respiratory 28 H 18 20 Rate Blood Pressure 127/62 Blood Pressure 179/65 [Left Arm] O2 Sat by Pulse 94 L 91 L 97 Oximetry 10/08/21 10/08/21 10/08/21 11:34 11:46 14:00 Temperature 98 F Pulse Rate 82 77 Pulse Rate [ 74 Pulse Oximetery ] Respiratory 20 Rate Blood Pressure Blood Pressure 147/58 [Left Arm] O2 Sat by Pulse 94 L Oximetry Medical Decision Making - Lab Data Result diagrams: 10/13/21 06:12 10/13/21 06:12 Lab Results 10/07/21 10/07/21 10/07/21 Range/Units 21:32 21:32 21:32 WBC 9.4 (3.8-10.6) k/uL RBC 4.02 (3.80-5.40) m/uL Hgb 12.6 (11.4-16.0) gm/dL Hct 39.5 (34.0-46.0) % MCV 98.3 (80.0-100.0) fL MCH 31.3 (25.0-35.0) pg MCHC 31.9 (31.0-37.0) g/dL RDW 13.7 (11.5-15.5) % Plt Count 283 (150-450) k/uL MPV 7.8 Neutrophils % 62 % Lymphocytes % 17 % Monocytes % 11 % Eosinophils % 8 % Basophils % 1 % Neutrophils # 5.9 (1.3-7.7) k/uL Lymphocytes # 1.6 (1.0-4.8) k/uL Monocytes # 1.1 H (0-1.0) k/uL Eosinophils # 0.8 H (0-0.7) k/uL Basophils # 0.1 (0-0.2) k/uL Hypochromasia Slight PT 10.5 (9.0-12.0) sec INR 1.0 (<1.2) APTT 26.7 (22.0-30.0) sec VBG pH (7.31-7.41) VBG pCO2 (37-51) mmHg VBG HCO3 (24-28) mmol/L Sodium (137-145) mmol/L Potassium (3.5-5.1) mmol/L Chloride (98-107) mmol/L Carbon Dioxide (22-30) mmol/L Anion Gap mmol/L BUN (7-17) mg/dL Creatinine (0.52-1.04) mg/dL Est GFR (CKD-EPI)AfAm (>60 ml/min/1.73 sqM) Est GFR (CKD-EPI)NonAf (>60 ml/min/1.73 sqM) Glucose (74-99) mg/dL Plasma Lactic Acid Joel (0.7-2.0) mmol/L Calcium (8.4-10.2) mg/dL Total Bilirubin (0.2-1.3) mg/dL AST (14-36) U/L ALT (4-34) U/L Alkaline Phosphatase (38-126) U/L Ammonia (<30) umol/L Troponin I (0.000-0.034) ng/mL Total Protein (6.3-8.2) g/dL Albumin (3.5-5.0) g/dL Urine Color Yellow Urine Appearance Turbid H (Clear) Urine pH 8.0 (5.0-8.0) Ur Specific [place] 1.020 (1.001-1.035) Urine Protein 2+ H (Negative) Urine Glucose (UA) Negative (Negative) Urine Ketones Trace H (Negative) Urine Blood Negative (Negative) Urine Nitrite Positive H (Negative) Urine Bilirubin Negative (Negative) Urine Urobilinogen 3.0 (<2.0) mg/dL Ur Leukocyte Esterase Large H (Negative) Urine RBC 15 H (0-5) /hpf Urine WBC >182 H (0-5) /hpf Urine WBC Clumps Many H (None) /hpf Ur Squamous Epith Cells 1 (0-4) /hpf Calcium Oxalate Crystal Few H (None) /hpf Triple Phos Crystals Many H (None) /hpf Urine Bacteria Many H (None) /hpf Hyaline Casts 7 H (0-2) /lpf Urine Mucus Moderate H (None) /hpf 10/07/21 10/07/21 10/07/21 Range/Units 21:32 21:32 21:32 WBC (3.8-10.6) k/uL RBC (3.80-5.40) m/uL Hgb (11.4-16.0) gm/dL Hct (34.0-46.0) % MCV (80.0-100.0) fL MCH (25.0-35.0) pg MCHC (31.0-37.0) g/dL RDW (11.5-15.5) % Plt Count (150-450) k/uL MPV Neutrophils % % Lymphocytes % % Monocytes % % Eosinophils % % Basophils % % Neutrophils # (1.3-7.7) k/uL Lymphocytes # (1.0-4.8) k/uL Monocytes # (0-1.0) k/uL Eosinophils # (0-0.7) k/uL Basophils # (0-0.2) k/uL Hypochromasia PT (9.0-12.0) sec INR (<1.2) APTT (22.0-30.0) sec VBG pH (7.31-7.41) VBG pCO2 (37-51) mmHg VBG HCO3 (24-28) mmol/L Sodium 140 (137-145) mmol/L Potassium 3.2 L (3.5-5.1) mmol/L Chloride 94 L (98-107) mmol/L Carbon Dioxide 39 H (22-30) mmol/L Anion Gap 7 mmol/L BUN 15 (7-17) mg/dL Creatinine 0.77 (0.52-1.04) mg/dL Est GFR (CKD-EPI)AfAm >90 (>60 ml/min/1.73 sqM) Est GFR (CKD-EPI)NonAf 82 (>60 ml/min/1.73 sqM) Glucose 112 H (74-99) mg/dL Plasma Lactic Acid Joel 1.1 (0.7-2.0) mmol/L Calcium 9.9 (8.4-10.2) mg/dL Total Bilirubin 0.5 (0.2-1.3) mg/dL AST 32 (14-36) U/L ALT 11 (4-34) U/L Alkaline Phosphatase 76 (38-126) U/L Ammonia 16 (<30) umol/L Troponin I <0.012 (0.000-0.034) ng/mL Total Protein 6.1 L (6.3-8.2) g/dL Albumin 3.3 L (3.5-5.0) g/dL Urine Color Urine Appearance (Clear) Urine pH (5.0-8.0) Ur Specific [place] (1.001-1.035) Urine Protein (Negative) Urine Glucose (UA) (Negative) Urine Ketones (Negative) Urine Blood (Negative) Urine Nitrite (Negative) Urine Bilirubin (Negative) Urine Urobilinogen (<2.0) mg/dL Ur Leukocyte Esterase (Negative) Urine RBC (0-5) /hpf Urine WBC (0-5) /hpf Urine WBC Clumps (None) /hpf Ur Squamous Epith Cells (0-4) /hpf Calcium Oxalate Crystal (None) /hpf Triple Phos Crystals (None) /hpf Urine Bacteria (None) /hpf Hyaline Casts (0-2) /lpf Urine Mucus (None) /hpf 10/07/21 Range/Units 22:15 WBC (3.8-10.6) k/uL RBC (3.80-5.40) m/uL Hgb (11.4-16.0) gm/dL Hct (34.0-46.0) % MCV (80.0-100.0) fL MCH (25.0-35.0) pg MCHC (31.0-37.0) g/dL RDW (11.5-15.5) % Plt Count (150-450) k/uL MPV Neutrophils % % Lymphocytes % % Monocytes % % Eosinophils % % Basophils % % Neutrophils # (1.3-7.7) k/uL Lymphocytes # (1.0-4.8) k/uL Monocytes # (0-1.0) k/uL Eosinophils # (0-0.7) k/uL Basophils # (0-0.2) k/uL Hypochromasia PT (9.0-12.0) sec INR (<1.2) APTT (22.0-30.0) sec VBG pH 7.41 (7.31-7.41) VBG pCO2 61 H (37-51) mmHg VBG HCO3 38 H (24-28) mmol/L Sodium (137-145) mmol/L Potassium (3.5-5.1) mmol/L Chloride (98-107) mmol/L Carbon Dioxide (22-30) mmol/L Anion Gap mmol/L BUN (7-17) mg/dL Creatinine (0.52-1.04) mg/dL Est GFR (CKD-EPI)AfAm (>60 ml/min/1.73 sqM) Est GFR (CKD-EPI)NonAf (>60 ml/min/1.73 sqM) Glucose (74-99) mg/dL Plasma Lactic Acid Joel (0.7-2.0) mmol/L Calcium (8.4-10.2) mg/dL Total Bilirubin (0.2-1.3) mg/dL AST (14-36) U/L ALT (4-34) U/L Alkaline Phosphatase (38-126) U/L Ammonia (<30) umol/L Troponin I (0.000-0.034) ng/mL Total Protein (6.3-8.2) g/dL Albumin (3.5-5.0) g/dL Urine Color Urine Appearance (Clear) Urine pH (5.0-8.0) Ur Specific [place] (1.001-1.035) Urine Protein (Negative) Urine Glucose (UA) (Negative) Urine Ketones (Negative) Urine Blood (Negative) Urine Nitrite (Negative) Urine Bilirubin (Negative) Urine Urobilinogen (<2.0) mg/dL Ur Leukocyte Esterase (Negative) Urine RBC (0-5) /hpf Urine WBC (0-5) /hpf Urine WBC Clumps (None) /hpf Ur Squamous Epith Cells (0-4) /hpf Calcium Oxalate Crystal (None) /hpf Triple Phos Crystals (None) /hpf Urine Bacteria (None) /hpf Hyaline Casts (0-2) /lpf Urine Mucus (None) /hpf Disposition Clinical Impression: UTI (urinary tract infection), Altered mental status Disposition: ADMITTED IP TO THIS HOSP Condition: Fair Is patient prescribed a controlled substance at d/c from ED?: No
[2021-10-07 21:43] LABS: Basophils # (A) 0.1 k/uL (0-0.2); Basophils % (A) 1 %; Eosinophils # (A) 0.8 k/uL (0-0.7); Eosinophils % (A) 8 %; HCT 39.5 % (34.0-46.0); HGB 12.6 gm/dL (11.4-16.0); Hypochromasia Slight; Lymphocytes # (A) 1.6 k/uL (1.0-4.8); Lymphocytes % (A) 17 %; MCH 31.3 pg (25.0-35.0); MCHC 31.9 g/dL (31.0-37.0); MCV 98.3 fL (80.0-100.0); Mean Platelet Volume 7.8; Monocytes # (A) 1.1 k/uL (0-1.0); Monocytes % (A) 11 %; Neutrophils # (A) 5.9 k/uL (1.3-7.7); Neutrophils % (A) 62 %; Platelet Count 283 k/uL (150-450); RBC 4.02 m/uL (3.80-5.40); RDW 13.7 % (11.5-15.5); WBC 9.4 k/uL (3.8-10.6)
[2021-10-07 21:53] LABS: Appearance,Urine Turbid (Clear); Bacteria,Urine Many /hpf; Bilirubin,Urine Negative (Negative); Blood,Urine Negative (Negative); Calcium Oxalate Crystals,Urine Few /hpf; Color,Urine Yellow; Glucose,Urine (UA) Negative (Negative); Hyaline Casts,Urine 7 /lpf (0-2); Ketones,Urine Trace (Negative); Leukocyte Esterase,Urine Large (Negative); Mucus,Urine Moderate /hpf; Nitrite,Urine Positive (Negative); Protein,Urine 2+ (Negative); RBC,Urine 15 /hpf (0-5); Squamous Epithelial Cell,Urine 1 /hpf (0-4); Triple Phosphate Crystal,Urine Many /hpf; WBC,Urine >182 /hpf (0-5)
[2021-10-07 21:54] LABS: ALT 11 U/L (4-34); AST 32 U/L (14-36); African American GFR (CKD) >90 (>60 ml/min/1.73 sqM); Albumin 3.3 g/dL (3.5-5.0); Alkaline Phosphatase 76 U/L (38-126); Anion Gap 7 mmol/L; Blood Urea Nitrogen 15 mg/dL (7-17); Calcium 9.9 mg/dL (8.4-10.2); Carbon Dioxide 39 mmol/L (22-30); Chloride 94 mmol/L (98-107); Glucose 112 mg/dL (74-99); Non-African American GFR(CKD) 82 (>60 ml/min/1.73 sqM); Potassium 3.2 mmol/L (3.5-5.1); Sodium 140 mmol/L (137-145); Total Bilirubin 0.5 mg/dL (0.2-1.3); Total Protein 6.1 g/dL (6.3-8.2)
[2021-10-07 21:55] LABS: Lactic Acid, Venous 1.1 mmol/L (0.7-2.0)
[2021-10-07 22:03] LABS: Partial Thromboplastin Time 26.7 sec (22.0-30.0); Prothrombin Time 10.5 sec (9.0-12.0)
--- NOTE | 2021-10-07 22:07 | CT ---
EXAMINATION TYPE: CT brain wo con CT DLP: 1096.4 mGycm, Automated exposure control for dose reduction was used. DATE OF EXAM: 10/07/2021 9:49 PM COMPARISON: Prior CT Brain from 09/03/2021. CLINICAL INDICATION:Female, 66 years old with history of altered mental status TECHNIQUE: Brain: Multiple axial CT images of the brain were obtained without IV contrast. FINDINGS: Brain: Extra-axial spaces: No abnormal extra-axial fluid collections. Ventricular system: Dilatation in proportion to cerebral atrophy. Cerebral parenchyma: Cerebral atrophy. No acute intraparenchymal hemorrhage or mass effect. The joyner -white junction is well differentiated. Scattered hypoattenuating areas are seen within the white mat ter. Cerebellum: Unremarkable. Mass effect: No evidence of midline shift. Intracranial vasculature: Atherosclerotic calcifications of the intracranial vessels. Soft tissues: Normal. Calvarium/osseous structures: No depressed skull fracture. Paranasal sinuses and mastoid air cells: Mild scattered paranasal sinus disease. Visualized orbits: Orbital contents are intact. IMPRESSION: 1. No acute intracranial process. 2. Nonspecific white matter changes, likely secondary to chronic small vessel ischemic disease.
--- NOTE | 2021-10-07 22:14 | XR ---
EXAMINATION TYPE: XR chest 1V portable DATE OF EXAM: 10/07/2021 COMPARISON: 09/03/2021 HISTORY: Altered mental status TECHNIQUE: FINDINGS: There is some atelectasis at the lung bases. There is coarse interstitial density in the jalyn ngs. Heart appears slightly enlarged. There is poor inspiration. IMPRESSION: Interstitial infiltrates and atelectasis in both lung flores without change compared to o ld exam. No obvious heart failure.
[2021-10-07 22:25] LABS: VBG PH 7.41 (7.31-7.41)
[2021-10-07] MEDS ORDERED: cefTRIAXone IN SWFI 1,000 MG/10 ML SYRINGE IVP STA (23:40)
[2021-10-07] MEDS ORDERED: POTASSIUM CHLORIDE ER 20 MEQ TAB.ER PO STA (23:41)
[2021-10-08] MEDS ORDERED: NALOXONE 0.4 MG/ML 1 ML VIAL IV PRN (01:34)
[2021-10-08] MEDS: SODIUM CHLORIDE 0.9% 1,000 ML IV SCH ×2 (02:58→09:04)
[2021-10-08 04:09] LABS: VBG PH 7.48 (7.31-7.41)
[2021-10-08] MEDS: ACETAMINOPHEN TAB 325 MG TAB PO PRN (05:33)
[2021-10-08] MEDS: FAMOTIDINE 20 MG TAB PO SCH ×2 (09:03→20:14)
[2021-10-08] MEDS ORDERED: NA PHOS,M-B/NA PHOS,DI-BA 133 ML ENEMA RECTAL PRN (11:13)
[2021-10-08] MEDS ORDERED: ALBUTEROL NEBULIZED 2.5 MG/3 ML INHALATION PRN (11:13)
[2021-10-08] MEDS ORDERED: MAGNESIUM HYDROXIDE 2,400 MG/10 ML CUP PO PRN (11:13)
[2021-10-08] MEDS ORDERED: bisacodyL 10 MG SUPP RECTAL PRN (11:13)
[2021-10-08] MEDS: ALBUTEROL NEBULIZED 2.5 MG/3 ML INHALATION SCH ×2 (11:34→19:22)
[2021-10-08] MEDS: SYMBICORT 160-4.5 MCG INHALER INHALATION SCH ×2 (11:47→19:22)
[2021-10-08] MEDS: busPIRone HCl 10 MG TAB PO SCH ×2 (11:48→20:13)
[2021-10-08] MEDS: clonazePAM 0.5 MG TAB PO SCH ×2 (11:48→15:37)
[2021-10-08] MEDS: NICOTINE 14MG/24HR PATCH TRANSDERM SCH (11:48)
[2021-10-08] MEDS: GABAPENTIN 300 MG CAP PO SCH ×2 (11:48→20:13)
[2021-10-08] MEDS: lamoTRIgine 100 MG TAB PO SCH ×2 (11:48→20:14)
[2021-10-08] MEDS: ENOXAPARIN 60 MG/0.6 ML SYRINGE SQ SCH (11:48)
[2021-10-08] MEDS: amLODIPine 5 MG TAB PO SCH (11:48)
[2021-10-08] MEDS: lisinopriL 20 MG TAB PO SCH (11:48)
[2021-10-08] MEDS ORDERED: NON FORMULARY DRUG (Ensure Enlive 237 ML) PO SCH (12:00)
--- NOTE | 2021-10-08 15:00 | P.HPIM ---
History of Present Illness H&P Date: 10/08/21 Chief Complaint: Altered mental status Patient was brought to the emergency room from [facility] for altered mental status. Patient was reported to have fallen out of bed and was more confused than normal. Patient has an extensive medical history including COPD, diabetes, hypertension, fibromyalgia, GERD, osteoarthritis, bipolar disorder, history of pulmonary embolism. Brain CT found no acute intracranial process, with nonspecific white matter changes. Chest xray shows infiltrates and atelectasis in bilateral lung flores, no changes from previous exam. Patient was recently admitted for altered mental status from UTI secondary to chronic indwelling jennings catheter. Patient required extended IV antibiotic treatment for enterobacter aerogenes and pseudomonas aeruginosa. Patient is presenting with similar symptoms and had a low grade fever on admission. WBC was 9.4. Patient is very confused on exam, repeating words and not answering questions. Antibiotics were ordered, jennings catheter will be changed. 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 History of Any Multi-Drug Resistant Organisms: None Reported Past Surgical History: Adenoidectomy, Section, Cholecystectomy, Hysterectomy, Tonsillectomy Additional Past Surgical History / Comment(s): EGD, colonoscopies, gastric b ypass, surgery for deviated septum Past Anesthesia/Blood Transfusion Reactions: Previous Problems w/ Anesthesia Additional Past Anesthesia/Blood Transfusion Reaction / Comment(s): itching, some kind of problem after gastric bypass-not sure what happened Past Psychological History: Anxiety, Bipolar, Depression Smoking Status: Smoker, current status unknown Past Alcohol Use History: None Reported Past Drug Use History: None Reported - Past Family History Mother Family Medical History: Congestive Heart Failure (CHF), Hypertension Father Additional Family Medical History / Comment(s): Father at the age of 45 yrs d/t having had rheumatic fever as a child and heart valve disease. Medications and Allergies Home Medications Medication Instructions Recorded Confirmed Type Montelukast [Singulair] 10 mg PO HS@209912/17/13 10/07/21 History busPIRone HCL [Buspar] 30 mg PO BID@0800,2100 12/17/13 10/07/21 History Albuterol Sulfate [Proair Hfa] 2 puff INHALATION RT-Q6H PRN 05/07/18 10/07/21 History Levothyroxine Sodium [Synthroid] 150 mcg PO SUTHFRSA@0600 03/29/20 10/07/21 History lisinopriL 20 mg PO DAILY@0800 10/05/20 10/07/21 History Albuterol Nebulized [Ventolin 2.5 mg INHALATION RT-TID@,06/12/21 10/07/21 History Nebulized] Budesonide/Formoterol Fumarate 2 puff INHALATION RT-BID@0800,1700 06/12/21 10/07/21 History [Symbicort 160-4.5 Mcg Inhaler] Acetaminophen Tab [Tylenol] 650 mg PO Q4H PRN 09/03/21 10/07/21 History Enoxaparin [Lovenox] 60 mg SQ DAILY@0800 09/03/21 10/07/21 History Ensure Enlive 237 ml PO TID@0800,1200,1700 09/03/21 10/07/21 History Famotidine [Pepcid] 20 mg PO BID@0800,1700 09/03/21 10/07/21 History Levothyroxine Sodium [Synthroid] 175 mcg PO MOTUWE@0600 09/03/21 10/07/21 History Magnesium Hydroxide [Milk of 7,200 mg PO Q48H PRN 09/03/21 10/07/21 History Magnesia Concentrate] Na Phos,M-B/Na Phos,Di-Ba [Fleet 133 ml RECTAL DAILY PRN 09/03/21 10/07/21 History Adult] Nicotine 14Mg/24Hr Patch [Habitrol] 1 patch TRANSDERM DAILY@0800 09/03/21 10/07/21 History amLODIPine [Norvasc] 5 mg PO DAILY@0800 09/03/21 10/07/21 History lamoTRIgine [LaMICtal] 100 mg PO BID@0800,2100 09/03/21 10/07/21 History Divalproex ER [Depakote ER] 750 mg PO HS@209910/07/21 10/07/21 History OLANZapine [ZyPREXA] 10 mg PO HS@209910/07/21 10/07/21 History bisacodyL [Dulcolax] 10 mg RECTAL DAILY PRN 10/07/21 10/07/21 History Gabapentin [Neurontin] 300 mg PO BID@0800,2100 #6 cap 10/14/21 10/07/21 Rx Tamsulosin [Flomax] 0.4 mg PO PC-BRKFST #7 capsule 10/14/21 Rx clonazePAM [KlonoPIN] 0.5 mg PO BID@0800,1700 #6 tab 10/14/21 10/07/21 Rx Allergies Allergy/AdvReac Type Severity Reaction Status Date / Time codeine Allergy Unknown Verified 10/07/21 21:55 Childhood Penicillins Allergy Rash/Hives Verified 10/07/21 21:55 Sulfa (Sulfonamide Allergy Rash/Hives Verified 10/07/21 21:55 Antibiotics) Physical Exam Vitals: Vital Signs Temp Pulse Pulse Resp BP BP Pulse Ox 10/08/21 11:46 77 10/08/21 11:34 82 10/08/21 08:00 97.9 F 77 20 179/65 97 10/08/21 06:31 99.8 F H 86 18 127/62 91 L 10/08/21 04:08 81 28 H 94 L 10/08/21 04:02 101.2 F H 83 28 H 121/43 92 L 10/08/21 00:40 96 24 113/73 90 L 10/08/21 00:00 20 91 L 10/07/21 23:40 89 L 10/07/21 22:06 78 18 140/75 92 L 10/07/21 20:40 97.0 F L 71 18 154/71 93 L Intake and Output 10/07/21 10/08/21 10/08/21 22:59 06:59 14:59 Other: Weight 97.522 kg - Constitutional General appearance: cooperative, obese - EENT Eyes: EOMI ENT: normal oropharynx - Neck Neck: normal ROM - Respiratory Respiratory: bilateral: diminished - Cardiovascular Heart rate: 70 Rhythm: regular Heart sounds: normal: S1, S2 - Gastrointestinal General gastrointestinal: normal bowel sounds, soft - Integumentary Integumentary: normal - Neurologic Neurologic: focal deficits - Musculoskeletal Musculoskeletal: generalized weakness - Psychiatric Alert, oriented to self Results CBC & Chem 7: 10/13/21 06:12 10/13/21 06:12 Labs: Abnormal Lab Results - Last 24 Hours (Table) 10/07/21 10/07/21 10/07/21 Range/Units 21:32 21:32 21:32 Monocytes # 1.1 H (0-1.0) k/uL Eosinophils # 0.8 H (0-0.7) k/uL VBG pH (7.31-7.41) VBG pCO2 (37-51) mmHg VBG HCO3 (24-28) mmol/L Potassium 3.2 L (3.5-5.1) mmol/L Chloride 94 L (98-107) mmol/L Carbon Dioxide 39 H (22-30) mmol/L Glucose 112 H (74-99) mg/dL Total Protein 6.1 L (6.3-8.2) g/dL Albumin 3.3 L (3.5-5.0) g/dL Urine Appearance Turbid H (Clear) Urine Protein 2+ H (Negative) Urine Ketones Trace H (Negative) Urine Nitrite Positive H (Negative) Ur Leukocyte Esterase Large H (Negative) Urine RBC 15 H (0-5) /hpf Urine WBC >182 H (0-5) /hpf Urine WBC Clumps Many H (None) /hpf Calcium Oxalate Crystal Few H (None) /hpf Triple Phos Crystals Many H (None) /hpf Urine Bacteria Many H (None) /hpf Hyaline Casts 7 H (0-2) /lpf Urine Mucus Moderate H (None) /hpf 10/07/21 10/08/21 Range/Units 22:15 03:59 Monocytes # (0-1.0) k/uL Eosinophils # (0-0.7) k/uL VBG pH 7.48 H (7.31-7.41) VBG pCO2 61 H (37-51) mmHg VBG HCO3 38 H 36 H (24-28) mmol/L Potassium (3.5-5.1) mmol/L Chloride (98-107) mmol/L Carbon Dioxide (22-30) mmol/L Glucose (74-99) mg/dL Total Protein (6.3-8.2) g/dL Albumin (3.5-5.0) g/dL Urine Appearance (Clear) Urine Protein (Negative) Urine Ketones (Negative) Urine Nitrite (Negative) Ur Leukocyte Esterase (Negative) Urine RBC (0-5) /hpf Urine WBC (0-5) /hpf Urine WBC Clumps (None) /hpf Calcium Oxalate Crystal (None) /hpf Triple Phos Crystals (None) /hpf Urine Bacteria (None) /hpf Hyaline Casts (0-2) /lpf Urine Mucus (None) /hpf Microbiology - Last 24 Hours (Table) 10/07/21 21:32 Urine Culture - Preliminary Urine,Voided Chest x-ray: report reviewed CT Scan - head: report reviewed Thrombosis Risk Factor Assmnt - DVT/VTE Prophylaxis DVT/VTE Prophylaxis: Pharmacologic Prophylaxis ordered, Mechanical Prophylaxis ordered - Choose All That Apply Each Factor Represents 1 point: Abnormal pulmonary function (COPD), Obesity (BMI >25) Each Risk Factor Represents 2 Points: Age 61-74 years Thrombosis Risk Factor Assessment Total Risk Factor Score: 4 Thrombosis Risk Factor Assessment Level: Moderate Risk Assessment and Plan Assessment: Altered mental status Urinary Tract infection, culture pending Acute on chronic copd, on 6L Hypokalemia, replaced Bipolar disorder Hypertension Urinary retention, chronic indwelling catheter Type 2 Diabetes Anxiety History of pulmonary embolism, on lovenox Plan: IV antibiotics for UTI, awaiting culture results Will change jennings catheter from admission Continue to monitor mental status Recheck potassium Plan to return to [facility] on discharge, consult to social work Further recommendations to come based on clinical course Time with Patient: Greater than 30 (I have personally seen and examined the patient, reviewed the documentation and agree with the assessment and plan as written. Number of minutes spent on the visit: Greater than 20.)
[2021-10-08 15:32] LABS: HGB 11.5 gm/dL (11.4-16.0); MCH 30.7 pg (25.0-35.0); MCHC 31.2 g/dL (31.0-37.0); MCV 98.6 fL (80.0-100.0); Mean Platelet Volume 6.9; Platelet Count 274 k/uL (150-450); RBC 3.75 m/uL (3.80-5.40); RDW 13.7 % (11.5-15.5); WBC 18.6 k/uL (3.8-10.6)
[2021-10-08 15:39] LABS: African American GFR (CKD) >90 (>60 ml/min/1.73 sqM); Anion Gap 4 mmol/L; Blood Urea Nitrogen 17 mg/dL (7-17); Calcium 9.2 mg/dL (8.4-10.2); Carbon Dioxide 37 mmol/L (22-30); Chloride 97 mmol/L (98-107); Glucose 85 mg/dL (74-99); Non-African American GFR(CKD) >90 (>60 ml/min/1.73 sqM); Potassium 2.9 mmol/L (3.5-5.1); Sodium 138 mmol/L (137-145)
[2021-10-08] MEDS ORDERED: CEFEPIME 1 GM in SODIUM CHLORIDE 0.9% 50 ML IVPB SCH (16:00)
[2021-10-08] MEDS ORDERED: Potassium Replacement Protocol 1 EACH MISC MISCELLANE PRN (16:00)
[2021-10-08] MEDS: POTASSIUM CHLORIDE ER 20 MEQ TAB.ER PO SCH ×3 (17:41→20:14)
[2021-10-08] MEDS: OLANZapine 10 MG TAB PO SCH (20:14)
[2021-10-08] MEDS: MONTELUKAST 10 MG TAB PO SCH (20:14)
[2021-10-08] MEDS: DIVALPROEX ER 250 MG TAB.ER.24H PO SCH (20:14)
--- NOTE | 2021-10-08 23:14 | P.CONS ---
History of Present Illness - Reason for Consult Consult date: 10/08/21 Urinary tract infection Requesting physician: Isha Gonsales - Chief Complaint Mental status changes x one day - History of Present Illness Patient is a 66-year-old female with a past medical history significant for COPD diabetes mellitus fibromyalgia history of recurrent ureteric infection assisted resident the patient was sent to the ER for evaluation of mental status changes at the patient apparently has fainted out of the bed and was noticed to be more confused than normal, patient on arrival to the ER did have a fever of 101.2 degree for night patient did have normal white initially subsequent white count is 18.6 urine creatinine has been normal patient did have a positive UA, patient chest x-ray interstitial infiltrate and atelectasis poor lung flores with no change compared to old exam and no heart failure, patient was started on cefepime has been admitted to the hospital infectious disease was consulted for further management of antibiotic therapy, patient slightly more awake alert she knows that she is in the hospital denies any headache or chest pain has been complaining of some shortness of breath denies significant cough or sputum production no abdominal pain no diarrhea Review of Systems Positive point has been mentioned in the HPI rest of the systems are negative Past Medical History Past Medical History: Asthma, COPD, Diabetes Mellitus, Fibromyalgia, G ERD/Reflux, Hypertension, Osteoarthritis (OA), Pneumonia, Pulmonary Embolus (PE), Skin Disorder, Thyroid Disorder Additional Past Medical History / Comment(s): Cervical disc disease/stenosis, scoliosis, recently having numbness/tingling L side of face/neck, recently saw animal pathologist for L hemidiaphragmatic elevation-pt states she was told this was probably genetic, recently bronchitis and past bronchitis, pt states recent med change (water pill) d/t electrolyte problem/kidney function being affected, pt states she has had pulmonary emboli, past bilateral lower extremity cellulitis, edema lower extremities, IBS, hemorrhoids, benign colon polyps, sinus problems, UTIs, bacteremia/sepsis, cardiac murmur, past L ankle and L wrist fractures. History of Any Multi-Drug Resistant Organisms: None Reported Past Surgical History: Adenoidectomy, Section, Cholecystectomy, Hysterectomy, Tonsillectomy Additional Past Surgical History / Comment(s): EGD, colonoscopies, gastric bypass, surgery for deviated septum Past Anesthesia/Blood Transfusion Reactions: Previous Problems w/ Anesthesia Additional Past Anesthesia/Blood Transfusion Reaction / Comm: itching, some kind of problem after gastric bypass-not sure what happened Past Psychological History: Anxiety, Bipolar, Depression Smoking Status: Smoker, current status unknown Past Alcohol Use History: None Reported Past Drug Use History: None Reported - Past Family History Mother Family Medical History: Congestive Heart Failure (CHF), Hypertension Father Additional Family Medical History / Comment(s): Father at the age of 45 yrs d/t having had rheumatic fever as a child and heart valve disease. Medications and Allergies Home Medications Medication Instructions Recorded Confirmed Type Montelukast [Singulair] 10 mg PO HS@209912/17/13 10/07/21 History busPIRone HCL [Buspar] 30 mg PO BID@08,209912/17/13 10/07/21 History Albuterol Sulfate [Proair Hfa] 2 puff INHALATION RT-Q6H PRN 05/07/18 10/07/21 History Levothyroxine Sodium [Synthroid] 150 mcg PO SUTHFRSA@0603/29/20 10/07/21 History lisinopriL 20 mg PO DAILY@0800 10/05/20 10/07/21 History Albuterol Nebulized [Ventolin 2.5 mg INHALATION RT-TID@06/12/2109/17 History Nebulized] Budesonide/Formoterol Fumarate 2 puff INHALATION RT-BID@0800,1700 06/12/21 10/07/21 History [Symbicort 160-4.5 Mcg Inhaler] Acetaminophen Tab [Tylenol] 650 mg PO Q4H PRN 09/03/21 10/07/21 History Enoxaparin [Lovenox] 60 mg SQ DAILY@0800 09/03/21 10/07/21 History Ensure Enlive 237 ml PO TID@0800,1200,1700 09/03/21 10/07/21 History Famotidine [Pepcid] 20 mg PO BID@0800,1700 09/03/21 10/07/21 History Levothyroxine Sodium [Synthroid] 175 mcg PO MOTUWE@0600 09/03/21 10/07/21 History Magnesium Hydroxide [Milk of 7,200 mg PO Q48H PRN 09/03/21 10/07/21 History Magnesia Concentrate] Na Phos,M-B/Na Phos,Di-Ba [Fleet 133 ml RECTAL DAILY PRN 09/03/21 10/07/21 History Adult] Nicotine 14Mg/24Hr Patch [Habitrol] 1 patch TRANSDERM DAILY@0800 09/03/21 10/07/21 History amLODIPine [Norvasc] 5 mg PO DAILY@0800 09/03/21 10/07/21 History lamoTRIgine [LaMICtal] 100 mg PO BID@0800,2100 09/03/21 10/07/21 History Gabapentin [Neurontin] 300 mg PO BID@0800,2100 #1 cap 09/12/21 10/07/21 Rx clonazePAM [KlonoPIN] 0.5 mg PO BID@0800,1700 #1 tab 09/12/21 10/07/21 Rx Divalproex ER [Depakote ER] 750 mg PO HS@209910/07/21 10/07/21 History OLANZapine [ZyPREXA] 10 mg PO HS@209910/07/21 10/07/21 History bisacodyL [Dulcolax] 10 mg RECTAL DAILY PRN 10/07/21 10/07/21 History Allergies Allergy/AdvReac Type Severity Reaction Status Date / Time codeine Allergy Unknown Verified 10/07/21 21:55 Childhood Penicillins Allergy Rash/Hives Verified 10/07/21 21:55 Sulfa (Sulfonamide Allergy Rash/Hives Verified 10/07/21 21:55 Antibiotics) Physical Exam Vitals: Vital Signs Temp Pulse Pulse Resp BP BP Pulse Ox 10/08/21 14:00 98 F 74 20 147/58 94 L 10/08/21 11:46 77 10/08/21 11:34 82 10/08/21 08:00 97.9 F 77 20 179/65 97 10/08/21 06:31 99.8 F H 86 18 127/62 91 L 10/08/21 04:08 81 28 H 94 L 10/08/21 04:02 101.2 F H 83 28 H 121/43 92 L 10/08/21 00:40 96 24 113/73 90 L 10/08/21 00:00 20 91 L 10/07/21 23:40 89 L 10/07/21 22:06 78 18 140/75 92 L 10/07/21 20:40 97.0 F L 71 18 154/71 93 L Intake and Output 10/08/21 10/08/21 10/08/21 06:59 14:59 22:59 Other: Weight 97.522 kg GENERAL DESCRIPTION: Middle-aged female lying in bed, no distress. No tachypnea or accessory muscle of respiration use. HEENT: Shows Pallor , no scleral icterus. Oral mucous membrane is dry. No pharyngeal erythema or thrush NECK: Trachea central, no thyromegaly. LUNGS: Unlabored breathing. Clear to auscultation anteriorly. No wheeze or crackle. HEART: S1, S2, regular rate and rhythm. No loud murmur ABDOMEN: Soft, no tenderness , guarding or rigidity, no organomegaly EXTREMITIES: No edema of feet. SKIN: No rash, no masses palpable. NEUROLOGICAL: The patient is awake, alert, oriented x2, mood and affect normal. Results CBC & Chem 7: 10/08/21 15:13 10/08/21 15:13 Labs: Abnormal Lab Results - Last 24 Hours (Table) 10/07/21 10/07/21 10/07/21 Range/Units 21:32 21:32 21:32 WBC (3.8-10.6) k/uL RBC (3.80-5.40) m/uL Monocytes # 1.1 H (0-1.0) k/uL Eosinophils # 0.8 H (0-0.7) k/uL VBG pH (7.31-7.41) VBG pCO2 (37-51) mmHg VBG HCO3 (24-28) mmol/L Potassium 3.2 L (3.5-5.1) mmol/L Chloride 94 L (98-107) mmol/L Carbon Dioxide 39 H (22-30) mmol/L Glucose 112 H (74-99) mg/dL Total Protein 6.1 L (6.3-8.2) g/dL Albumin 3.3 L (3.5-5.0) g/dL Urine Appearance Turbid H (Clear) Urine Protein 2+ H (Negative) Urine Ketones Trace H (Negative) Urine Nitrite Positive H (Negative) Ur Leukocyte Esterase Large H (Negative) Urine RBC 15 H (0-5) /hpf Urine WBC >182 H (0-5) /hpf Urine WBC Clumps Many H (None) /hpf Calcium Oxalate Crystal Few H (None) /hpf Triple Phos Crystals Many H (None) /hpf Urine Bacteria Many H (None) /hpf Hyaline Casts 7 H (0-2) /lpf Urine Mucus Moderate H (None) /hpf 10/07/21 10/08/21 10/08/21 Range/Units 22:15 03:59 15:13 WBC 18.6 H (3.8-10.6) k/uL RBC 3.75 L (3.80-5.40) m/uL Monocytes # (0-1.0) k/uL Eosinophils # (0-0.7) k/uL VBG pH 7.48 H (7.31-7.41) VBG pCO2 61 H (37-51) mmHg VBG HCO3 38 H 36 H (24-28) mmol/L Potassium (3.5-5.1) mmol/L Chloride (98-107) mmol/L Carbon Dioxide (22-30) mmol/L Glucose (74-99) mg/dL Total Protein (6.3-8.2) g/dL Albumin (3.5-5.0) g/dL Urine Appearance (Clear) Urine Protein (Negative) Urine Ketones (Negative) Urine Nitrite (Negative) Ur Leukocyte Esterase (Negative) Urine RBC (0-5) /hpf Urine WBC (0-5) /hpf Urine WBC Clumps (None) /hpf Calcium Oxalate Crystal (None) /hpf Triple Phos Crystals (None) /hpf Urine Bacteria (None) /hpf Hyaline Casts (0-2) /lpf Urine Mucus (None) /hpf 10/08/21 Range/Units 15:13 WBC (3.8-10.6) k/uL RBC (3.80-5.40) m/uL Monocytes # (0-1.0) k/uL Eosinophils # (0-0.7) k/uL VBG pH (7.31-7.41) VBG pCO2 (37-51) mmHg VBG HCO3 (24-28) mmol/L Potassium 2.9 L (3.5-5.1) mmol/L Chloride 97 L (98-107) mmol/L Carbon Dioxide 37 H (22-30) mmol/L Glucose (74-99) mg/dL Total Protein (6.3-8.2) g/dL Albumin (3.5-5.0) g/dL Urine Appearance (Clear) Urine Protein (Negative) Urine Ketones (Negative) Urine Nitrite (Negative) Ur Leukocyte Esterase (Negative) Urine RBC (0-5) /hpf Urine WBC (0-5) /hpf Urine WBC Clumps (None) /hpf Calcium Oxalate Crystal (None) /hpf Triple Phos Crystals (None) /hpf Urine Bacteria (None) /hpf Hyaline Casts (0-2) /lpf Urine Mucus (None) /hpf Microbiology - Last 24 Hours (Table) 10/07/21 21:32 Urine Culture - Preliminary Urine,Voided Assessment and Plan (1) UTI (urinary tract infection) Current Visit: No Status: Acute Code(s): N39.0 - URINARY TRACT INFECTION, SITE NOT SPECIFIED SNOMED Code(s): 82453030 Plan: 1patient presented to hospital with sepsis in this patient did have a fever elevated white count significantly positive UA likely secondary to catheter associated tract infection in this patient recently treated for a UTI secondary to Enterobacter and Pseudomonas aeruginosa. 2Foley catheter needs to be changed if has not been changed in the last week or so. 3we will increase the dose of cefepime to 2 g every 8 hours with normal kidney function. 4gentle IV fluid We will follow on clinical condition and cultures to further adjust medication if needed Thank you for this consultation will follow this patient along with you Time with Patient: Greater than 30
[2021-10-08] MEDS: CEFEPIME 2 GM in SODIUM CHLORIDE 0.9% 100 ML IVPB SCH (23:53)
[2021-10-09] MEDS ORDERED: CEFEPIME 2 GM in SODIUM CHLORIDE 0.9% 50 ML IVPB SCH ×2
[2021-10-09] MEDS: SODIUM CHLORIDE 0.9% 1,000 ML IV SCH ×3 (05:38→23:10)
[2021-10-09] MEDS: LEVOTHYROXINE 75 MCG TAB PO SCH (05:40)
[2021-10-09 06:36] LABS: Appearance,Urine Clear (Clear); Bacteria,Urine Rare /hpf; Bilirubin,Urine Negative (Negative); Blood,Urine Negative (Negative); Color,Urine Yellow; Glucose,Urine (UA) Negative (Negative); Ketones,Urine Trace (Negative); Leukocyte Esterase,Urine Moderate (Negative); Mucus,Urine Rare /hpf; Nitrite,Urine Negative (Negative); PH, Urine 6.5 (5.0-8.0); Protein,Urine Trace (Negative); Specific Gravity,Urine 1.021 (1.001-1.035); Squamous Epithelial Cell,Urine 2 /hpf (0-4); Urobilinogen,Urine <2.0 mg/dL (<2.0); WBC,Urine 23 /hpf (0-5)
[2021-10-09] MEDS: CEFEPIME 2 GM in SODIUM CHLORIDE 0.9% 100 ML IVPB SCH ×3 (08:31→23:10)
[2021-10-09] MEDS: clonazePAM 0.5 MG TAB PO SCH ×2 (08:32→16:46)
[2021-10-09] MEDS: FAMOTIDINE 20 MG TAB PO SCH ×2 (08:32→20:05)
[2021-10-09] MEDS: PANTOPRAZOLE 40 MG/10 ML VIAL IVP SCH (08:32)
[2021-10-09] MEDS: lamoTRIgine 100 MG TAB PO SCH ×2 (08:32→20:05)
[2021-10-09] MEDS: lisinopriL 20 MG TAB PO SCH (08:33)
[2021-10-09] MEDS: amLODIPine 5 MG TAB PO SCH (08:33)
[2021-10-09] MEDS: GABAPENTIN 300 MG CAP PO SCH ×2 (08:33→20:05)
[2021-10-09] MEDS: busPIRone HCl 10 MG TAB PO SCH ×2 (08:33→20:05)
[2021-10-09] MEDS: ENOXAPARIN 60 MG/0.6 ML SYRINGE SQ SCH (08:33)
[2021-10-09] MEDS: NICOTINE 14MG/24HR PATCH TRANSDERM SCH (08:35)
[2021-10-09] MEDS: SYMBICORT 160-4.5 MCG INHALER INHALATION SCH ×2 (08:52→20:48)
[2021-10-09] MEDS: ALBUTEROL NEBULIZED 2.5 MG/3 ML INHALATION SCH ×3 (08:52→20:48)
[2021-10-09 09:25] LABS: African American GFR (CKD) 111.6 (60.0-200.0); Albumin 3.1 g/dL (3.8-4.9); Albumin/Globulin Ratio 1.48 (1.60-3.17); BUN/Creat Ratio 20.83 Ratio (12.00-20.00); Blood Urea Nitrogen 12.5 mg/dL (9.0-27.0); Calcium 9.5 mg/dL (8.7-10.3); Globulin 2.1 g/dL (1.6-3.3); Non-African American GFR(CKD) 96.3 (60.0-200.0); Potassium 3.9 mmol/L (3.5-5.5); Total Bilirubin 0.2 mg/dL (0.30-1.20); Total Protein 5.2 g/dL (6.2-8.2)
--- NOTE | 2021-10-09 10:31 | P.PN ---
Subjective Progress Note Date: 10/09/21 Principal diagnosis: altered mental status Patient was brought to the emergency room from [facility] for altered mental status. Patient was reported to have fallen out of bed and was more confused than normal. Patient has an extensive medical history including COPD, diabetes, hypertension, fibromyalgia, GERD, osteoarthritis, bipolar disorder, history of pulmonary embolism. Brain CT found no acute intracranial process, with nonspecific white matter changes. Chest xray shows infiltrates and atelectasis in bilateral lung flores, no changes from previous exam. Patient was recently admitted for altered mental status from UTI secondary to chronic indwelling jennings catheter. Patient required extended IV antibiotic treatment for enterobacter aerogenes and pseudomonas aeruginosa. Patient is presenting with similar symptoms and had a low grade fever on admission. WBC was 9.4. Patient is very confused on exam, repeating words and not answering questions. Antibiotics were ordered, jennings catheter will be changed. 10/09/2021 Patient was seen and assessed at bedside, continues to be confused. Alert and oriented to self, states the year is 2222. Denies any pain. Jennings catheter was changed, urine and blood culture pending. White blood cell count increased to 18.6. No fever documented overnight. Infectious disease was consulted, antibiotics were adjusted. Repeat labs in the am. Objective - Vital Signs Vital signs: Vital Signs Temp 98.9 F 10/09/21 06:58 Pulse 85 10/09/21 09:14 Resp 18 10/09/21 07:15 BP 143/79 10/09/21 06:58 Pulse Ox 91 L 10/09/21 08:54 Intake & Output 10/08/21 10/09/21 10/09/21 18:59 06:59 18:59 Output Total 650 350 Balance -650 -350 Weight 97.522 kg Output: Urine 650 350 Other: Voiding Method Indwelling Catheter Indwelling Catheter - Constitutional General appearance: Present: no acute distress, obese - EENT Eyes: Present: EOMI, PERRLA ENT: Present: normal oropharynx Ears: bilateral: normal - Neck Neck: Present: normal ROM - Respiratory Respiratory: bilateral: diminished - Cardiovascular Heart rate: 80 Rhythm: regular Heart sounds: normal: S1, S2 - Peripheral pulses radial pulse Peripheral Pulses: bilateral: Normal - Gastrointestinal General gastrointestinal: Present: normal bowel sounds, soft - Integumentary Integumentary: Present: normal turgor - Neurologic Neurologic: Present: focal deficits - Musculoskeletal Musculoskeletal Comment(s): left leg in cast Musculoskeletal: Present: generalized weakness, strength equal bilaterally - Psychiatric Psychiatric Comment(s): Alert, oriented to self, confused - Allied health notes Allied health notes reviewed: nursing - Labs CBC & Chem 7: 10/13/21 06:12 10/13/21 06:12 Labs: Abnormal Lab Results - Last 24 Hours (Table) 10/08/21 10/08/21 10/09/21 Range/Units 15:13 15:13 05:43 WBC 18.6 H (3.8-10.6) k/uL RBC 3.75 L (3.80-5.40) m/uL Potassium 2.9 L (3.5-5.1) mmol/L Chloride 97 L (98-107) mmol/L Carbon Dioxide 37 H 31.0 H (22-30) mmol/L BUN/Creatinine Ratio 20.83 H (12.00-20.00) Ratio Glucose 68 L (70-110) mg/dL Total Bilirubin 0.20 L (0.30-1.20) mg/dL Total Protein 5.2 L (6.2-8.2) g/dL Albumin 3.1 L (3.8-4.9) g/dL Albumin/Globulin Ratio 1.48 L (1.60-3.17) g/dL Urine Protein (Negative) Urine Ketones (Negative) Ur Leukocyte Esterase (Negative) Urine WBC (0-5) /hpf Urine Bacteria (None) /hpf Urine Mucus (None) /hpf 10/09/21 Range/Units 06:15 WBC (3.8-10.6) k/uL RBC (3.80-5.40) m/uL Potassium (3.5-5.1) mmol/L Chloride (98-107) mmol/L Carbon Dioxide (22-30) mmol/L BUN/Creatinine Ratio (12.00-20.00) Ratio Glucose (70-110) mg/dL Total Bilirubin (0.30-1.20) mg/dL Total Protein (6.2-8.2) g/dL Albumin (3.8-4.9) g/dL Albumin/Globulin Ratio (1.60-3.17) g/dL Urine Protein Trace H (Negative) Urine Ketones Trace H (Negative) Ur Leukocyte Esterase Moderate H (Negative) Urine WBC 23 H (0-5) /hpf Urine Bacteria Rare H (None) /hpf Urine Mucus Rare H (None) /hpf Microbiology - Last 24 Hours (Table) 10/07/21 22:05 Blood Culture - Preliminary Blood No Growth after 24 hours Assessment and Plan Assessment: Altered mental status Urinary Tract infection, culture pending Acute on chronic copd, on 6L Hypokalemia, improved Bipolar disorder Hypertension Urinary retention, chronic indwelling catheter Type 2 Diabetes Anxiety History of pulmonary embolism, on lovenox Plan: IV antibiotics for UTI, awaiting culture results Infectious disease consult, increased dose of IV antibiotics Continue to monitor mental status Recheck potassium daily, replace per protocol Plan to return to [facility] on discharge, consult to social work Further recommendations to come based on clinical course Time with Patient: Greater than 30 (I have personally seen and examined the patient, reviewed the documentation and agree with the assessment and plan as written. Number of minutes spent on the visit: Greater than 20.)
--- NOTE | 2021-10-09 10:46 | CDI ---
Documentation Clarification Form Date: 10/09/2021 10:29:54 AM From: Aleena OwensMedinaDANIELITO wu, CCDS Admit Date: 10/08/2021 01:35:00 AM Patient Name: Haydee Mcpherson Visit Number: [id number] Discharge Date: ATTENTION: The Clinical Documentation Specialists (CDI) and [facility] Coding Staff appreciate your assistance in clarifying documentation. Please respond to the clarification below the line at the bottom and electronically sign. The CDI & [facility] Coding staff will review the response and follow-up if needed. Please note: Queries are made part of the Legal Health Record. If you have any questions, please contact the author of this message via ITS. Dr. Andrzej Wheeler: Per the 10/08 History & Physical: the patient is admitted with Altered Mental Status & UTI with history of recent admission for the same. The patient is noted to be confused, repeating words & not answering questions. Per the 10/08 Infectious Disease Consult: The patient presented to the hospital with Sepsis with fever & elevated white count, positive UA likely secondary to catheter associated tract infection, recently treated for a UTI secondary to Enterobacter & Pseudomonas Aeruginosa. Additional clarification regarding the patient's confusion is requested. History/Risk Factors per the 10/08 H/P: Asthma, COPD, DM, Fibromyalgia, GERD, Hypertension, Osteoarthritis, Pneumonia, PE, Hypothyroidism, Cervical Disc Disease with Stenosis & Scoliosis, Bronchitis, Bilateral Lower Extremity Cellulitis, IBS, UTIs w/Bacteremia/Sepsis. Clinical Indicators: Presented to the ED on 10/07 via EMS from a [facility] with Altered Mental Status and had fallen out of her bed. Confused. Admitted with UTI and altered mental status. 10/07 VS: T 97.0, P 71, R 18, BP 154/71, PO 93 6Lnc, BMI: 35.8 10/07 LAB: WBC 9.4 (10/08: 18.6); Barron 1.1, Eos 0.8; K 3.2, Cl 94, CO2 39, Glucose 112, Total Protein 6.1, Albumin 4.4 10/07 VBG: pH 7.41, 7.48; pCO2 61, 50; HCO3 38, 36. 10/07 UA: Turbid, 2+ Protein, Trace ketones, Positive Nitrite, Large Esterase, RBC 15, WBC >182. 10/07 Urine Culture: Pending final. 10/09 Urine Culture: Pending final. 10/07 Blood Culture: Neg @ 24 hrs, preliminary. 10/07 CT Brain: No acute intracranial process. Nonspecific white matter changes, likely secondary to chronic small vessel ischemic disease. Treatment 10/07: Husain Cather changed, Blood & urine cultures, ID Consult, O2 2Lnc, IV Rocephin 1,000 mg x1, po KDur 40 meq x1, INH Ventolin q6H/prn, INH Symbicort BID Home meds: INH Proair, Ventolin, Symbicort; Lamictal, Klonopin, Neurontin, Pepcid, Buspar, Zyprexa, Singulair, Norvasc, Habitrol, Synthroid, Lovenox sq, Depakote. Please further clarify the patient's confusion if possible: [ X] Unable to determine (Template Last Revised: September 2020) MTDD
[2021-10-09 11:55] VITALS: BMI 35.7
[2021-10-09] MEDS: MONTELUKAST 10 MG TAB PO SCH (20:05)
[2021-10-09] MEDS: DIVALPROEX ER 250 MG TAB.ER.24H PO SCH (20:05)
[2021-10-09 20:15] LABS: Glucose,Whole Blood 88 mg/dL (75-99)
[2021-10-09] MEDS: OLANZapine 10 MG TAB PO SCH (20:35)
--- NOTE | 2021-10-09 22:27 | P.PN ---
Subjective Progress Note Date: 10/09/21 Principal diagnosis: Catheter associated urinary tract infection Patient is a 66 year old female with a past medical history significant for recurrent urinary tract infection catheter associated present to the hospital with mental status changes and fever and has been diagnosed with an episode of catheter associated UTI, the patient Husain catheter was changed. On today's evaluation of his 10/09/2021 the patient denies having any fever or any chills patient is pleasantly confused however less agitated per the nursing staff no vomiting or diarrhea has been reported Objective - Vital Signs Vital signs: Vital Signs Temp 98.9 F 10/09/21 06:58 Pulse 85 10/09/21 09:14 Resp 18 10/09/21 07:15 BP 143/79 10/09/21 06:58 Pulse Ox 91 L 10/09/21 08:54 Intake & Output 10/08/21 10/09/21 10/09/21 18:59 06:59 18:59 Output Total 650 350 Balance -650 -350 Weight 97.522 kg Output: Urine 650 350 Other: Voiding Method Indwelling Catheter Indwelling Catheter - Exam GENERAL DESCRIPTION: An elderly female lying in bed in no distress RESPIRATORY SYSTEM: Unlabored breathing , decreased breath sounds at bases HEART: S1 S2 regular rate and rhythm , ABDOMEN: Soft , no tenderness EXTREMITIES: No edema feet - Labs CBC & Chem 7: 10/08/21 15:13 10/09/21 05:43 Labs: Abnormal Lab Results - Last 24 Hours (Table) 10/08/21 10/08/21 10/09/21 Range/Units 15:13 15:13 05:43 WBC 18.6 H (3.8-10.6) k/uL RBC 3.75 L (3.80-5.40) m/uL Potassium 2.9 L (3.5-5.1) mmol/L Chloride 97 L (98-107) mmol/L Carbon Dioxide 37 H 31.0 H (22-30) mmol/L BUN/Creatinine Ratio 20.83 H (12.00-20.00) Ratio Glucose 68 L (70-110) mg/dL Total Bilirubin 0.20 L (0.30-1.20) mg/dL Total Protein 5.2 L (6.2-8.2) g/dL Albumin 3.1 L (3.8-4.9) g/dL Albumin/Globulin Ratio 1.48 L (1.60-3.17) g/dL Urine Protein (Negative) Urine Ketones (Negative) Ur Leukocyte Esterase (Negative) Urine WBC (0-5) /hpf Urine Bacteria (None) /hpf Urine Mucus (None) /hpf 10/09/21 Range/Units 06:15 WBC (3.8-10.6) k/uL RBC (3.80-5.40) m/uL Potassium (3.5-5.1) mmol/L Chloride (98-107) mmol/L Carbon Dioxide (22-30) mmol/L BUN/Creatinine Ratio (12.00-20.00) Ratio Glucose (70-110) mg/dL Total Bilirubin (0.30-1.20) mg/dL Total Protein (6.2-8.2) g/dL Albumin (3.8-4.9) g/dL Albumin/Globulin Ratio (1.60-3.17) g/dL Urine Protein Trace H (Negative) Urine Ketones Trace H (Negative) Ur Leukocyte Esterase Moderate H (Negative) Urine WBC 23 H (0-5) /hpf Urine Bacteria Rare H (None) /hpf Urine Mucus Rare H (None) /hpf Microbiology - Last 24 Hours (Table) 10/09/21 06:15 Urine Culture - Preliminary Urine,Voided 10/07/21 22:05 Blood Culture - Preliminary Blood No Growth after 24 hours Assessment and Plan (1) UTI (urinary tract infection) Current Visit: Yes Status: Acute Code(s): N39.0 - URINARY TRACT INFECTION, SITE NOT SPECIFIED SNOMED Code(s): 08952958 Plan: 1patient presented to hospital with sepsis in this patient did have a fever elevated white count significantly positive UA likely secondary to catheter associated tract infection in this patient recently treated for a UTI secondary to Enterobacter and Pseudomonas aeruginosa. 2Foley catheter has been changed and repeat UA has been obtained 3continue the patient on cefepime to 2 g every 8 hours while waiting for cultures to finalize Time with Patient: Less than 30
[2021-10-09] MEDS: ACETAMINOPHEN TAB 325 MG TAB PO PRN (23:09)
[2021-10-10 07:00] LABS: Glucose,Whole Blood 78 mg/dL (75-99)
[2021-10-10] MEDS: LEVOTHYROXINE 75 MCG TAB PO SCH (08:00)
[2021-10-10] MEDS: SYMBICORT 160-4.5 MCG INHALER INHALATION SCH ×2 (08:05→16:48)
[2021-10-10] MEDS: ALBUTEROL NEBULIZED 2.5 MG/3 ML INHALATION SCH ×3 (08:05→19:51)
[2021-10-10] MEDS: PANTOPRAZOLE 40 MG/10 ML VIAL IVP SCH (08:40)
[2021-10-10] MEDS: CEFEPIME 2 GM in SODIUM CHLORIDE 0.9% 100 ML IVPB SCH ×2 (08:44→17:12)
[2021-10-10] MEDS: ENOXAPARIN 60 MG/0.6 ML SYRINGE SQ SCH (08:51)
[2021-10-10] MEDS: busPIRone HCl 10 MG TAB PO SCH ×2 (08:52→21:09)
[2021-10-10] MEDS: FAMOTIDINE 20 MG TAB PO SCH ×2 (08:53→21:09)
[2021-10-10] MEDS: clonazePAM 0.5 MG TAB PO SCH ×2 (08:53→17:13)
[2021-10-10] MEDS: amLODIPine 5 MG TAB PO SCH (08:53)
[2021-10-10] MEDS: lamoTRIgine 100 MG TAB PO SCH ×2 (08:53→21:10)
[2021-10-10] MEDS: GABAPENTIN 300 MG CAP PO SCH ×2 (08:53→21:09)
[2021-10-10] MEDS: lisinopriL 20 MG TAB PO SCH (08:53)
[2021-10-10] MEDS: NICOTINE 14MG/24HR PATCH TRANSDERM SCH (08:54)
[2021-10-10 09:06] LABS: Basophils # (A) 0.09 X 10*3/uL (0.00-0.10); Basophils % (A) 0.9 %; Eosinophils # (A) 0.58 X 10*3/uL (0.04-0.35); Eosinophils % (A) 5.7 %; HCT 33.9 % (37.2-46.3); HGB 10.3 g/dL (12.0-15.0); Immature Grans, Automated 3.6 %; Lymphocytes # (A) 2.25 X 10*3/uL (0.90-5.00); MCH 30.5 pg (27.0-32.0); MCHC 30.4 g/dL (32.0-37.0); MCV 100.3 fL (80.0-97.0); Mean Platelet Volume 9.3 fL (9.5-12.2); Monocytes # (A) 1.04 X 10*3/uL (0.20-1.00); Monocytes % (A) 10.1 %; NRBC Per 100 WBC 0 /100 WBCS (0.0-0.0); Neutrophils # (A) 5.92 X 10*3/uL (1.80-7.70); Neutrophils % (A) 57.7 %; Platelet Count 204 X 10*3/uL (140-440); RBC 3.38 X 10*6/uL (4.10-5.20); RDW 14.3 % (11.5-14.5); WBC 10.25 X 10*3/uL (4.50-10.00)
[2021-10-10 09:18] LABS: ALT 9 U/L (8-44); AST 19 U/L (13-35); African American GFR (CKD) 111.6 (60.0-200.0); Albumin 2.9 g/dL (3.8-4.9); Albumin/Globulin Ratio 1.53 (1.60-3.17); Alkaline Phosphatase 63 U/L (41-126); Blood Urea Nitrogen 9.6 mg/dL (9.0-27.0); Calcium 9.4 mg/dL (8.7-10.3); Carbon Dioxide 31.2 mmol/L (20.0-27.5); Chloride 102 mmol/L (96-109); Globulin 1.9 g/dL (1.6-3.3); Glucose 67 mg/dL (70-110); Non-African American GFR(CKD) 96.3 (60.0-200.0); Potassium 3.7 mmol/L (3.5-5.5); Sodium 142 mmol/L (135-145); Total Bilirubin <0.15 mg/dL (0.30-1.20); Total Protein 4.8 g/dL (6.2-8.2)
--- NOTE | 2021-10-10 10:55 | P.PN ---
Subjective Progress Note Date: 10/10/21 Principal diagnosis: altered mental status Patient was brought to the emergency room from [facility] for altered mental status. Patient was reported to have fallen out of bed and was more confused than normal. Patient has an extensive medical history including COPD, diabetes, hypertension, fibromyalgia, GERD, osteoarthritis, bipolar disorder, history of pulmonary embolism. Brain CT found no acute intracranial process, with nonspecific white matter changes. Chest xray shows infiltrates and atelectasis in bilateral lung flores, no changes from previous exam. Patient was recently admitted for altered mental status from UTI secondary to chronic indwelling jennings catheter. Patient required extended IV antibiotic treatment for enterobacter aerogenes and pseudomonas aeruginosa. Patient is presenting with similar symptoms and had a low grade fever on admission. WBC was 9.4. Patient is very confused on exam, repeating words and not answering questions. Antibiotics were ordered, jennings catheter will be changed. 10/09/2021 Patient was seen and assessed at bedside, continues to be confused. Alert and oriented to self, states the year is 2222. Denies any pain. Jennings catheter was changed, urine and blood culture pending. White blood cell count increased to 18.6. No fever documented overnight. Infectious disease was consulted, antibiotics were adjusted. Repeat labs in the am. 10/10/21 Was seen and examined at bedside, mental status continues to improve. Patient is alert and oriented to self, but is able to speak in complete sentences, was asking for logical things such as a brush. Patient denies any pain. White blood cell count decreased to 10.2. Preliminary urine culture shows gram- negative bacilli, we'll continue to wait for final results. Objective - Vital Signs Vital signs: Vital Signs Temp 97.5 F L 10/10/21 07:55 Pulse 68 10/10/21 08:14 Resp 18 10/10/21 08:05 BP 139/73 10/10/21 07:55 Pulse Ox 92 L 10/10/21 08:05 Intake & Output 10/09/21 10/10/21 10/10/21 18:59 06:59 18:59 Output Total 1100 200 Balance -1100 -200 Weight 97.522 kg Output: Urine 1100 200 Other: Voiding Method Indwelling Catheter Indwelling Catheter - Constitutional General appearance: Present: no acute distress, obese - EENT Eyes: Present: EOMI, PERRLA ENT: Present: normal oropharynx - Neck Neck: Present: normal ROM Carotids: bilateral: upstroke normal - Respiratory Respiratory: bilateral: diminished - Cardiovascular Heart rate: 70 Rhythm: regular Heart sounds: normal: S1, S2 - Peripheral pulses radial pulse Peripheral Pulses: bilateral: Normal - Gastrointestinal General gastrointestinal: Present: normal bowel sounds, soft - Integumentary Integumentary: Present: normal turgor - Neurologic Neurologic: Present: focal deficits - Musculoskeletal Musculoskeletal: Present: generalized weakness, strength equal bilaterally - Psychiatric Psychiatric Comment(s): Alert and oriented to self - Allied health notes Allied health notes reviewed: nursing - Labs CBC & Chem 7: 10/13/21 06:12 10/13/21 06:12 Labs: Abnormal Lab Results - Last 24 Hours (Table) 10/10/21 10/10/21 Range/Units 05:57 05:57 WBC 10.25 H (4.50-10.00) X 10*3/uL RBC 3.38 L (4.10-5.20) X 10*6/uL Hgb 10.3 L (12.0-15.0) g/dL Hct 33.9 L (37.2-46.3) % MCV 100.3 H (80.0-97.0) fL MCHC 30.4 L (32.0-37.0) g/dL MPV 9.3 L (9.5-12.2) fL Immature Gran # 0.37 H (0.00-0.04) X 10*3/uL Monocytes # 1.04 H (0.20-1.00) X 10*3/uL Eosinophils # 0.58 H (0.04-0.35) X 10*3/uL Carbon Dioxide 31.2 H (20.0-27.5) mmol/L Anion Gap 8.80 L (10.00-18.00) mmol/L Glucose 67 L (70-110) mg/dL Total Bilirubin <0.15 L (0.30-1.20) mg/dL Total Protein 4.8 L (6.2-8.2) g/dL Albumin 2.9 L (3.8-4.9) g/dL Albumin/Globulin Ratio 1.53 L (1.60-3.17) g/dL Microbiology - Last 24 Hours (Table) 10/07/21 22:05 Blood Culture - Preliminary Blood No Growth after 48 hours 10/07/21 21:32 Urine Culture - Preliminary Urine,Voided Gram Neg Bacilli Gram Neg Bacilli#2 10/09/21 06:15 Urine Culture - Preliminary Urine,Voided Assessment and Plan Assessment: Altered mental status, secondary to infection Urinary Tract infection, culture pending Acute on chronic copd, on 6L Hypokalemia, improved Bipolar disorder Hypertension Urinary retention, chronic indwelling catheter Type 2 Diabetes Anxiety History of pulmonary embolism, on lovenox Plan: IV antibiotics for UTI, awaiting culture results Infectious disease consult, increased dose of IV antibiotics Continue to monitor mental status Recheck potassium daily, replace per protocol Plan to return to [facility] on discharge, consult to social work Further recommendations to come based on clinical course Time with Patient: Greater than 30 (I have personally seen and examined the patient, reviewed the documentation and agree with the assessment and plan as written. Number of minutes spent on the visit: Greater than 20.)
[2021-10-10 11:39] LABS: Glucose,Whole Blood 76 mg/dL (75-99)
[2021-10-10] MEDS ORDERED: VANCOMYCIN IV PER PHARMACY 1 EACH MISC MISCELLANE PRN (13:02)
[2021-10-10] MEDS: VANCOMYCIN 1,500 MG in SODIUM CHLORIDE 0.9% 250 ML IVPB SCH (13:53)
[2021-10-10 16:44] LABS: Glucose,Whole Blood 80 mg/dL (75-99)
[2021-10-10 20:58] LABS: Glucose,Whole Blood 78 mg/dL (75-99)
[2021-10-10] MEDS: MONTELUKAST 10 MG TAB PO SCH (21:09)
[2021-10-10] MEDS: OLANZapine 10 MG TAB PO SCH (21:10)
[2021-10-10] MEDS: DIVALPROEX ER 250 MG TAB.ER.24H PO SCH (21:10)
--- NOTE | 2021-10-10 21:55 | P.PN ---
Subjective Progress Note Date: 10/10/21 Principal diagnosis: Catheter associated urinary tract infection Patient is a 66 year old female with a past medical history significant for recurrent urinary tract infection catheter associated present to the hospital with mental status changes and fever and has been diagnosed with an episode of catheter associated UTI, the patient Husain catheter was changed. On today's evaluation of his 10/10/2021 the patient remains to be afebrile, the patient denies any chest pain shortness of breath or cough, no vomiting or diarrhea has been reported Objective - Vital Signs Vital signs: Vital Signs Temp 97.3 F L 10/10/21 11:50 Pulse 64 10/10/21 11:50 Resp 17 10/10/21 11:50 BP 148/76 10/10/21 11:50 Pulse Ox 96 10/10/21 11:50 Intake & Output 10/09/21 10/10/21 10/10/21 18:59 06:59 18:59 Output Total 1100 300 Balance -1100 -300 Weight 97.522 kg Output: Urine 1100 300 Other: Voiding Method Indwelling Catheter Indwelling Catheter Indwelling Catheter - Exam GENERAL DESCRIPTION: An elderly female lying in bed in no distress RESPIRATORY SYSTEM: Unlabored breathing , decreased breath sounds at bases HEART: S1 S2 regular rate and rhythm , ABDOMEN: Soft , no tenderness EXTREMITIES: No edema feet - Labs CBC & Chem 7: 10/10/21 05:57 10/10/21 05:57 Labs: Abnormal Lab Results - Last 24 Hours (Table) 10/10/21 10/10/21 Range/Units 05:57 05:57 WBC 10.25 H (4.50-10.00) X 10*3/uL RBC 3.38 L (4.10-5.20) X 10*6/uL Hgb 10.3 L (12.0-15.0) g/dL Hct 33.9 L (37.2-46.3) % MCV 100.3 H (80.0-97.0) fL MCHC 30.4 L (32.0-37.0) g/dL MPV 9.3 L (9.5-12.2) fL Immature Gran # 0.37 H (0.00-0.04) X 10*3/uL Monocytes # 1.04 H (0.20-1.00) X 10*3/uL Eosinophils # 0.58 H (0.04-0.35) X 10*3/uL Carbon Dioxide 31.2 H (20.0-27.5) mmol/L Anion Gap 8.80 L (10.00-18.00) mmol/L Glucose 67 L (70-110) mg/dL Total Bilirubin <0.15 L (0.30-1.20) mg/dL Total Protein 4.8 L (6.2-8.2) g/dL Albumin 2.9 L (3.8-4.9) g/dL Albumin/Globulin Ratio 1.53 L (1.60-3.17) g/dL Microbiology - Last 24 Hours (Table) 10/09/21 06:15 Urine Culture - Preliminary Urine,Voided Group D Enterococcus 10/07/21 22:05 Blood Culture - Preliminary Blood No Growth after 48 hours 10/07/21 21:32 Urine Culture - Preliminary Urine,Voided Gram Neg Bacilli Gram Neg Bacilli#2 Assessment and Plan (1) UTI (urinary tract infection) Current Visit: Yes Status: Acute Code(s): N39.0 - URINARY TRACT INFECTION, SITE NOT SPECIFIED SNOMED Code(s): 69334362 Plan: 1patient presented to hospital with sepsis in this patient did have a fever elevated white count significantly positive UA likely secondary to catheter associated tract infection in this patient recently treated for a UTI secondary to Enterobacter and Pseudomonas aeruginosa. 2Foley catheter has been changed and repeat UA has been obtained with a repeat urine cultures is now showing enterococcus species 3continue the patient on cefepime to 2 g every 8 hours however will add vancomycin to cover for enterococcus while waiting for sensitivity to finalize Time with Patient: Less than 30
[2021-10-11] MEDS: CEFEPIME 2 GM in SODIUM CHLORIDE 0.9% 100 ML IVPB SCH ×3 (00:12→16:27)
[2021-10-11] MEDS: VANCOMYCIN 1,500 MG in SODIUM CHLORIDE 0.9% 250 ML IVPB SCH ×2 (02:01→13:37)
[2021-10-11] MEDS: ACETAMINOPHEN TAB 325 MG TAB PO PRN (02:14)
[2021-10-11 05:35] LABS: Glucose,Whole Blood 74 mg/dL (75-99)
[2021-10-11] MEDS: LEVOTHYROXINE 75 MCG TAB PO SCH (05:38)
[2021-10-11 06:40] LABS: ALT 10 U/L (4-34); AST 30 U/L (14-36); African American GFR (CKD) >90 (>60 ml/min/1.73 sqM); Albumin 2.7 g/dL (3.5-5.0); Alkaline Phosphatase 73 U/L (38-126); Anion Gap 3 mmol/L; Blood Urea Nitrogen 8 mg/dL (7-17); Calcium 9.1 mg/dL (8.4-10.2); Carbon Dioxide 34 mmol/L (22-30); Chloride 102 mmol/L (98-107); Globulin 2.8 g/dL; Glucose 86 mg/dL (74-99); Magnesium 1.5 mg/dL (1.6-2.3); Non-African American GFR(CKD) >90 (>60 ml/min/1.73 sqM); Potassium 3.3 mmol/L (3.5-5.1); Sodium 139 mmol/L (137-145); Total Bilirubin 0.5 mg/dL (0.2-1.3); Total Protein 5.5 g/dL (6.3-8.2)
[2021-10-11 07:12] LABS: Glucose,Whole Blood 84 mg/dL (75-99)
[2021-10-11] MEDS: ALBUTEROL NEBULIZED 2.5 MG/3 ML INHALATION SCH ×3 (07:33→19:34)
[2021-10-11] MEDS: SYMBICORT 160-4.5 MCG INHALER INHALATION SCH ×2 (07:35→16:52)
[2021-10-11] MEDS: busPIRone HCl 10 MG TAB PO SCH ×2 (07:43→20:24)
[2021-10-11] MEDS: GABAPENTIN 300 MG CAP PO SCH ×2 (07:43→20:25)
[2021-10-11] MEDS: clonazePAM 0.5 MG TAB PO SCH ×2 (07:43→16:28)
[2021-10-11] MEDS: NICOTINE 14MG/24HR PATCH TRANSDERM SCH (07:43)
[2021-10-11] MEDS: FAMOTIDINE 20 MG TAB PO SCH ×2 (07:43→20:24)
[2021-10-11] MEDS: lamoTRIgine 100 MG TAB PO SCH ×2 (07:44→20:25)
[2021-10-11] MEDS: amLODIPine 5 MG TAB PO SCH (07:44)
[2021-10-11] MEDS: PANTOPRAZOLE 40 MG TABLET PO SCH (07:44)
[2021-10-11] MEDS: lisinopriL 20 MG TAB PO SCH (07:44)
[2021-10-11] MEDS: ENOXAPARIN 60 MG/0.6 ML SYRINGE SQ SCH (07:48)
[2021-10-11 09:27] LABS: Basophils # (A) 0.09 X 10*3/uL (0.00-0.10); Basophils % (A) 0.9 %; Eosinophils # (A) 0.82 X 10*3/uL (0.04-0.35); Eosinophils % (A) 7.9 %; HCT 35.8 % (37.2-46.3); Immature Grans, Automated 3.8 %; Lymphocytes # (A) 2.05 X 10*3/uL (0.90-5.00); Lymphocytes % (A) 19.8 %; MCH 30.2 pg (27.0-32.0); MCHC 30.7 g/dL (32.0-37.0); MCV 98.4 fL (80.0-97.0); Mean Platelet Volume 9.1 fL (9.5-12.2); Monocytes # (A) 1.03 X 10*3/uL (0.20-1.00); Monocytes % (A) 9.9 %; NRBC Per 100 WBC 0 /100 WBCS (0.0-0.0); Neutrophils # (A) 5.99 X 10*3/uL (1.80-7.70); Neutrophils % (A) 57.7 %; Platelet Count 223 X 10*3/uL (140-440); RBC 3.64 X 10*6/uL (4.10-5.20); WBC 10.37 X 10*3/uL (4.50-10.00)
[2021-10-11 11:03] LABS: Glucose,Whole Blood 82 mg/dL (75-99)
[2021-10-11] MEDS ORDERED: POTASSIUM CHLORIDE ER 20 MEQ TAB.ER PO SCH (12:00)
[2021-10-11] MEDS: POTASSIUM CHLORIDE ER 20 MEQ TAB.ER PO SCH ×2 (13:37→14:34)
[2021-10-11 16:57] LABS: Glucose,Whole Blood 75 mg/dL (75-99)
[2021-10-11 20:19] LABS: Glucose,Whole Blood 77 mg/dL (75-99)
[2021-10-11] MEDS ORDERED: POTASSIUM CHLORIDE ER 20 MEQ TAB.ER PO STA (20:23)
[2021-10-11] MEDS ORDERED: Magnesium Replacement Protocol 1 EACH MISC MISCELLANE PRN (20:23)
[2021-10-11] MEDS: DIVALPROEX ER 250 MG TAB.ER.24H PO SCH (20:24)
[2021-10-11] MEDS: MONTELUKAST 10 MG TAB PO SCH (20:25)
[2021-10-11] MEDS: OLANZapine 10 MG TAB PO SCH (20:25)
--- NOTE | 2021-10-11 20:28 | P.PN ---
Subjective This is a pleasant 66 years old female with multiple medical problems including bipolar, please refer to her past medical history. Presents initially under Dr. Wheeler service for urinary tract infection related to her Husain catheter which is changed now. She has 2 urine cultures, first one showing resistant Enterobacter plus Proteus and the second one showing cuate-cocci. Patient is being followed closely by ID team and currently she is on IV vancomycin and cefepime. WBC is 10.3, hemoglobin 11. Potassium 3.3 been replaced per protocol. Check labs in the morning Patient is awake and alert and answers questions appropriately and follows co mmands. No weakness in extremities, no concern for stroke now. Last time she was in the hospital on 05/2021 she was on a 3 L/m of oxygen, she's been evaluated by Dr. Brannon for COPD. Currently she is on 5-6 L. Chest x-ray showing bilateral infiltrates, we will repeat chest x-ray in the morning Right leg cath is in place with no pain and no other issue She is on multiple psychiatric medications including BuSpar, Klonopin, Depakote, Lamictal and Zyprexa, we will consult psychiatry team to assess her medication Objective - Vital Signs Vital signs: Vital Signs Temp 97.4 F L 10/11/21 07:43 Pulse 66 10/11/21 11:30 Resp 18 10/11/21 02:00 BP 159/71 10/11/21 07:43 Pulse Ox 98 10/11/21 07:43 Intake & Output 10/10/21 10/11/21 10/11/21 18:59 06:59 18:59 Intake Total 480 Output Total 600 900 Balance -120 -900 Intake: Oral 480 Output: Urine 600 900 Other: Voiding Method Indwelling Catheter Indwelling Catheter Indwelling Catheter - Exam -GENERAL: The patient is alert and oriented x3, but drowsy and easily to awake to verbal and tactile stimuli, follow commands and answer questions appropriately not in any acute distress. Well developed, well nourished. HEENT: Pupils are round and equally reacting to light. EOMI. No scleral icterus. No conjunctival pallor. Normocephalic, atraumatic. No pharyngeal erythema. No thyromegaly. CARDIOVASCULAR: S1 and S2 present. No murmurs, rubs, or gallops. -PULMONARY: Chest is clear to auscultation, no wheezing or crackles. Decreased air entry in both sides - ABDOMEN: Soft, nontender, nondistended, normoactive bowel sounds. No palpable organomegaly. Husain catheter is in place MUSCULOSKELETAL: No joint swelling or deformity. -EXTREMITIES: No cyanosis, clubbing, or pedal edema. Right leg cast NEUROLOGICAL: Gross neurological examination did not reveal any focal deficits. SKIN: No rashes. no petechiae. - Labs CBC & Chem 7: 10/11/21 05:54 10/11/21 05:54 Labs: Abnormal Lab Results - Last 24 Hours (Table) 10/11/21 10/11/21 10/11/21 Range/Units 05:33 05:54 05:54 WBC 10.37 H (4.50-10.00) X 10*3/uL RBC 3.64 L (4.10-5.20) X 10*6/uL Hgb 11.0 L (12.0-15.0) g/dL Hct 35.8 L (37.2-46.3) % MCV 98.4 H (80.0-97.0) fL MCHC 30.7 L (32.0-37.0) g/dL MPV 9.1 L (9.5-12.2) fL Immature Gran # 0.39 H (0.00-0.04) X 10*3/uL Monocytes # 1.03 H (0.20-1.00) X 10*3/uL Eosinophils # 0.82 H (0.04-0.35) X 10*3/uL Potassium 3.3 L (3.5-5.1) mmol/L Carbon Dioxide 34 H (22-30) mmol/L POC Glucose (mg/dL) 74 L (75-99) mg/dL Magnesium 1.5 L (1.6-2.3) mg/dL Total Protein 5.5 L (6.3-8.2) g/dL Albumin 2.7 L (3.5-5.0) g/dL Microbiology - Last 24 Hours (Table) 10/07/21 22:05 Blood Culture - Preliminary Blood No Growth after 72 hours 10/07/21 21:32 Urine Culture - Preliminary Urine,Voided Proteus vulgaris Gram Neg Bacilli 10/09/21 06:15 Urine Culture - Preliminary Urine,Voided Group D Enterococcus Assessment and Plan Assessment: Urinary Tract infection, culture pending Acute on chronic copd, on 6L, last time she was in the hospital she was on 3 L/m of oxygen Hypokalemia, hypomagnesemia replaced per protocol Bipolar disorder, with multiple medication Hypertension Chronic Urinary retention, chronic indwelling catheter Type 2 Diabetes Anxiety History of pulmonary embolism, on lovenox Plan: This is a pleasant 66 years old female who presents with UTI, COPD exacerbation and ultimate mental status Continue with antibiotics as per ID team and adjust medication accordingly, cu rrently she is on IV vancomycin and cefepime Start the patient on Solu-Medrol Repeat chest x-ray in the morning Consult psychiatry service to assess her medication, currently she is on multiple medications including BuSpar, Klonopin, Depakote, Lamictal and Zyprexa Right leg cast is a stable Labs and medication were reviewed.. Continue same treatment. Continue with symptomatic treatment. Resume home medication. Monitor lytes and vitals. DVT and GI prophylaxis. Further recommendations as per clinical course of the patient DVT prophylaxis: Subcutaneous Lovenox GI Prophylaxis: Pepcid
[2021-10-11] MEDS ORDERED: MAGNESIUM SULFATE-D5W PMX 1 GM in DEXTROSE/WATER 1 100ML.BAG IVPB ONE ×2 (20:44→23:12)
--- NOTE | 2021-10-11 22:16 | P.PN ---
Subjective Progress Note Date: 10/11/21 Principal diagnosis: Catheter associated urinary tract infection Patient is a 66 year old female with a past medical history significant for recurrent urinary tract infection catheter associated present to the hospital with mental status changes and fever and has been diagnosed with an episode of catheter associated UTI, the patient Husain catheter was changed. On today's evaluation of his 10/11/2021 the patient continues to be afebrile, the patient is more sleepy and lethargic today and did not want any history, no vomiting diarrhea reported by the nursing staff Objective - Vital Signs Vital signs: Vital Signs Temp 97.4 F L 10/11/21 07:43 Pulse 66 10/11/21 11:30 Resp 18 10/11/21 02:00 BP 159/71 10/11/21 07:43 Pulse Ox 98 10/11/21 07:43 Intake & Output 10/10/21 10/11/21 10/11/21 18:59 06:59 18:59 Intake Total 480 Output Total 600 900 Balance -120 -900 Intake: Oral 480 Output: Urine 600 900 Other: Voiding Method Indwelling Catheter Indwelling Catheter Indwelling Catheter - Exam GENERAL DESCRIPTION: An elderly female lying in bed in no distress RESPIRATORY SYSTEM: Unlabored breathing , decreased breath sounds at bases HEART: S1 S2 regular rate and rhythm , ABDOMEN: Soft , no tenderness EXTREMITIES: No edema feet - Labs CBC & Chem 7: 10/11/21 05:54 10/11/21 05:54 Labs: Abnormal Lab Results - Last 24 Hours (Table) 10/11/21 10/11/21 10/11/21 Range/Units 05:33 05:54 05:54 WBC 10.37 H (4.50-10.00) X 10*3/uL RBC 3.64 L (4.10-5.20) X 10*6/uL Hgb 11.0 L (12.0-15.0) g/dL Hct 35.8 L (37.2-46.3) % MCV 98.4 H (80.0-97.0) fL MCHC 30.7 L (32.0-37.0) g/dL MPV 9.1 L (9.5-12.2) fL Immature Gran # 0.39 H (0.00-0.04) X 10*3/uL Monocytes # 1.03 H (0.20-1.00) X 10*3/uL Eosinophils # 0.82 H (0.04-0.35) X 10*3/uL Potassium 3.3 L (3.5-5.1) mmol/L Carbon Dioxide 34 H (22-30) mmol/L POC Glucose (mg/dL) 74 L (75-99) mg/dL Magnesium 1.5 L (1.6-2.3) mg/dL Total Protein 5.5 L (6.3-8.2) g/dL Albumin 2.7 L (3.5-5.0) g/dL Microbiology - Last 24 Hours (Table) 10/07/21 22:05 Blood Culture - Preliminary Blood No Growth after 72 hours 10/07/21 21:32 Urine Culture - Preliminary Urine,Voided Proteus vulgaris Gram Neg Bacilli 10/09/21 06:15 Urine Culture - Preliminary Urine,Voided Group D Enterococcus Assessment and Plan (1) UTI (urinary tract infection) Current Visit: Yes Status: Acute Code(s): N39.0 - URINARY TRACT INFECTION, SITE NOT SPECIFIED SNOMED Code(s): 34531398 Plan: 1patient presented to hospital with sepsis in this patient did have a fever elevated white count significantly positive UA likely secondary to catheter associated tract infection in this patient recently treated for a UTI secondary to Enterobacter and Pseudomonas aeruginosa. 2Foley catheter has been changed and repeat UA has been obtained with a repeat urine cultures is now showing enterococcus faecalis 3patient is ALLERGIC to penicillin and sulfa continue with the vancomycin to cover for enterococcus faecalis, at the bedside and was not sure about the type of ALLERGY the patient has with penicillin Time with Patient: Less than 30
[2021-10-11] MEDS: TAMSULOSIN 0.4 MG CAP.ER.24H PO SCH (22:19)
[2021-10-11] MEDS: methylPREDNISolone SOD SUCCI 40 MG/ML 1 ML VIAL IV SCH (22:42)
[2021-10-12] MEDS: CEFEPIME 2 GM in SODIUM CHLORIDE 0.9% 100 ML IVPB SCH ×4 (00:27→23:44)
[2021-10-12] MEDS: VANCOMYCIN 1,500 MG in SODIUM CHLORIDE 0.9% 250 ML IVPB SCH ×2 (03:40→13:00)
[2021-10-12] MEDS: LEVOTHYROXINE 75 MCG TAB PO SCH (05:31)
[2021-10-12 05:51] LABS: ALT 10 U/L (4-34); AST 28 U/L (14-36); African American GFR (CKD) >90 (>60 ml/min/1.73 sqM); Albumin 2.8 g/dL (3.5-5.0); Alkaline Phosphatase 73 U/L (38-126); Anion Gap 1 mmol/L; Blood Urea Nitrogen 8 mg/dL (7-17); Calcium 9.1 mg/dL (8.4-10.2); Carbon Dioxide 34 mmol/L (22-30); Chloride 104 mmol/L (98-107); Globulin 2.7 g/dL; Glucose 109 mg/dL (74-99); Non-African American GFR(CKD) >90 (>60 ml/min/1.73 sqM); Potassium 4.5 mmol/L (3.5-5.1); Sodium 139 mmol/L (137-145); Total Bilirubin 0.5 mg/dL (0.2-1.3); Total Protein 5.5 g/dL (6.3-8.2)
[2021-10-12 07:13] LABS: Glucose,Whole Blood 108 mg/dL (75-99)
[2021-10-12] MEDS: lisinopriL 20 MG TAB PO SCH (08:46)
[2021-10-12] MEDS: FAMOTIDINE 20 MG TAB PO SCH ×2 (08:46→21:24)
[2021-10-12] MEDS: amLODIPine 5 MG TAB PO SCH (08:46)
[2021-10-12] MEDS: lamoTRIgine 100 MG TAB PO SCH ×2 (08:46→21:24)
[2021-10-12] MEDS: GABAPENTIN 300 MG CAP PO SCH ×2 (08:46→21:24)
[2021-10-12] MEDS: NICOTINE 14MG/24HR PATCH TRANSDERM SCH (08:46)
[2021-10-12] MEDS: clonazePAM 0.5 MG TAB PO SCH ×2 (08:46→17:01)
[2021-10-12] MEDS: TAMSULOSIN 0.4 MG CAP.ER.24H PO SCH (08:46)
[2021-10-12] MEDS: PANTOPRAZOLE 40 MG TABLET PO SCH (08:46)
[2021-10-12] MEDS: busPIRone HCl 10 MG TAB PO SCH ×2 (08:46→21:23)
[2021-10-12] MEDS: SYMBICORT 160-4.5 MCG INHALER INHALATION SCH ×2 (08:53→16:39)
[2021-10-12] MEDS: ALBUTEROL NEBULIZED 2.5 MG/3 ML INHALATION SCH ×3 (08:53→18:56)
[2021-10-12] MEDS: methylPREDNISolone SOD SUCCI 40 MG/ML 1 ML VIAL IV SCH (08:58)
[2021-10-12] MEDS: ENOXAPARIN 60 MG/0.6 ML SYRINGE SQ SCH (08:58)
--- NOTE | 2021-10-12 09:49 | XR ---
EXAMINATION TYPE: XR chest 1V DATE OF EXAM: 10/12/2021 COMPARISON: 10/07/2021 INDICATION: Short of breath TECHNIQUE: Single frontal view of the chest is obtained. FINDINGS: The heart size is mildly prominent. The pulmonary vasculature is normal. This has improved from comparison. Mild left lower lobe infiltrate may be present. This is improving. IMPRESSION: 1. Improving pulmonary vasculature and left lower lobe infiltrate. Continued follow-up is recommended
[2021-10-12 11:51] LABS: HCT 37.8 % (37.2-46.3); HGB 11.3 g/dL (12.0-15.0); MCH 29.9 pg (27.0-32.0); MCHC 29.9 g/dL (32.0-37.0); Mean Platelet Volume 9.2 fL (9.5-12.2); NRBC Per 100 WBC 0 /100 WBCS (0.0-0.0); Platelet Count 227 X 10*3/uL (140-440); RBC 3.78 X 10*6/uL (4.10-5.20); RDW 14.2 % (11.5-14.5); WBC 7.77 X 10*3/uL (4.50-10.00)
[2021-10-12 12:03] LABS: Glucose,Whole Blood 143 mg/dL (75-99)
--- NOTE | 2021-10-12 14:25 | P.CN ---
Psychiatric Consult - . Consult date: 10/12/21 Consult:: This is a case of a 66-year-old female who was interviewed in her room along with "Jose Eduardo" at the patient's request. I also talked to the nurse in charge of the case who said the patient seemed to have trouble staying on topic. Consult reason: Patient is on polypharmacy with a diagnosis of bipolar and is having some difficulty with confusion should things be adjusted? Medications: The patient is on Lamictal 200 mg a day Depakote 750 daily at bedtime BuSpar 30 mg twice a day(the patient says that she was on Celexa at home and the BuSpar was probably given to double the efficacy of the Celexa that she is not on that this time) Klonopin 0.5 twice a day Neurontin 100 twice a day Zyprexa 10 mg daily at bedtime Mental status exam: The patient has mittens on her hand to keep her from hurting herself by scratching. She does find it frustrating because she needs other people's help to wipe tears when she has them or take off or put on her glasses. It was interesting that she was quite upset that she wanted him to find her glasses but she was wearing them and looking through. When he pointed out that it was on her face she seemed troubled by the fact that she had realized. This was consistent that her function on mental status was poor and she was aware of it and it bothered her. She showed emotional lability, for example when asked to the proverb the grass looks greater than side effects she began to weep. When she calmed down enough for me to find out why she was sleeping she said that she and her family were always treated as people from the other side of the fence and as less important growing up. (It should be noted that none of her sentences are not as clear as I put that and she does tend to wander off topic and then come back). At one point she became quite angry and then caught herself and realized she had nothing to be angry about and apologized. I asked her who the president was and she could not remember, she thought the previous president was somebody that many people liked but could not remember his name either. I gave her 3 things to remember and had to repeat it for her to get it on immediate recall, and she could only remember one after 3 minutes. I asked her to name the [place] she said [place], [place], and [place] she realized these weren't correct and became frustrated. When asked how cats and snakes are similar she said "they breathe, and then she made it sound like hissing and eventually remembered the word hiss. She then said that they both bristle which of course only the cat dots. She tried to spell world backward and got DLRODL. She tried to subtract 7 from 100 and could not/2-6 tract 7 from 10 and she said 2. Assessment the patient is not functioning well she has loose associations emotional lability and a lot of this seems to be connected more to cognitive impairment rather than a mood disorder. Some thoughts in regards to medications to consider: BuSpar is only useful to increase the efficacy of Celexa I think we can stop that and there is no withdrawal from BuSpar nor do I think the Celexa should be reintroduced as it tends to agitate mood swings. Lamictal's dose is doubled when used with Depakote. Due to enzymatic interaction. So it is as if she is getting 400 mg of Lamictal. Now that is in the therapeutic range for seizures but somewhat about what is beneficial for depression and bipolar. So I suggest that we get a Depakote level which I will order it should comeback fairly low. The usual rule of thumb is a person's weight in pounds which is 215 with a 0 on the end, which should be 2150 milligrams. Suffering increased mood stability we could increase at some and go down on the Lamictal 250 or even 100 as it might be contributing to some confusion. The Zyprexa is at a good dose for someone her age and can contribute to weight gain and diabetes metabolic syndrome and drowsiness. So would not suggest increasing that at this point. I'm not quite sure what the Neurontin is for it is a low dose but sometimes can contribute to confusion and other hand it can be quite helpful for anxiety is not addicting. Soft the Depakote level is low I suggest increase that, off the BuSpar decrease the Lamictal injury might even increase the Neurontin some as it only works about 6 hours to 200 3 times a day. Course in unit have to reassess how she does on those changes. Lamictal change can improve focus in a couple of days. Course increasing the Depakote takes about a week or so to show much benefit. 10/12/21 14:08
[2021-10-12 15:01] LABS: RBC Morphology NORMAL
[2021-10-12 16:42] LABS: Glucose,Whole Blood 131 mg/dL (75-99)
--- NOTE | 2021-10-12 17:55 | P.PN ---
Subjective This is a pleasant 66 years old female with multiple medical problems including bipolar, please refer to her past medical history. Presents initially under Dr. Wheeler service for urinary tract infection related to her Husain catheter which is changed now. She has 2 urine cultures, first one showing resistant Enterobacter plus Proteus and the second one showing cuate-cocci. Patient is being followed closely by ID team and currently she is on IV vancomycin and cefepime. WBC is 10.3, hemoglobin 11. Potassium 3.3 been replaced per protocol. Check labs in the morning Patient is awake and alert and answers questions appropriately and follows co mmands. No weakness in extremities, no concern for stroke now. Last time she was in the hospital on 05/2021 she was on a 3 L/m of oxygen, she's been evaluated by Dr. Brannon for COPD. Currently she is on 5-6 L. Chest x-ray showing bilateral infiltrates, we will repeat chest x-ray in the morning Right leg cath is in place with no pain and no other issue She is on multiple psychiatric medications including BuSpar, Klonopin, Depakote, Lamictal and Zyprexa, we will consult psychiatry team to assess her medication 10/12/2021 Patient today was awakened alert and oriented to time, place and person partially, she was anxious and somewhat agitated, overnight she was pulling her Husain catheter out and she was placed on mitten Patient wanted her medicines removed, discussed with the staff to remove the mitten and monitor her, obviously if he shouldn't keep pulling her Husain and IV line didn't need to be placed back again, patient was advised to try to avoid taking the Husain catheter out, as per previous note patient has urinary retention and she has indwelling Husain catheter per her primary service with Dr. Wheeler team. Flomax was added yesterday. The patient may benefit from urology referral as an outpatient. Contact information for Dr. Dusty fuentes and her discharge instructions. Regarding her right leg fracture she told me she's been seen by Dr. Wesley and she intends to follow up with him upon discharge, also placed on her discharge instructions Psychiatrist evaluated the patient for her psych medications, please refer to his note. Because of her agitation today and her breathing is significantly improved and she is on 5 L/m of oxygen which is close to her baseline of 4-5 and she states and chest x-ray showing improvement in her pulmonary vasculature and left lower lobe infiltrate, we will discontinue Solu-Medrol and continue with Symbicort. Patient kept on IV vancomycin and cefepime for UTI with multiple bacteria. Culture. Patient denies history of seizure and that looks like her Lamictal it is for her bipolar Objective - Vital Signs Vital signs: Vital Signs Temp 98.1 F 10/12/21 08:00 Pulse 64 10/12/21 12:11 Resp 18 10/12/21 08:00 BP 154/85 10/12/21 08:00 Pulse Ox 95 10/12/21 08:00 Intake & Output 10/11/21 10/12/21 10/12/21 18:59 06:59 18:59 Output Total 400 1000 Balance -400 -1000 Output: Urine 400 1000 Other: Voiding Method Indwelling Catheter Indwelling Catheter Indwelling Catheter - Exam -GENERAL: The patient is alert and oriented x3, but drowsy and easily to awake to verbal and tactile stimuli, follow commands and answer questions appropriately not in any acute distress. Well developed, well nourished. HEENT: Pupils are round and equally reacting to light. EOMI. No scleral icterus. No conjunctival pallor. Normocephalic, atraumatic. No pharyngeal erythema. No thyromegaly. CARDIOVASCULAR: S1 and S2 present. No murmurs, rubs, or gallops. -PULMONARY: Chest is clear to auscultation, no wheezing or crackles. Decreased air entry in both sides - ABDOMEN: Soft, nontender, nondistended, normoactive bowel sounds. No palpable organomegaly. Husain catheter is in place MUSCULOSKELETAL: No joint swelling or deformity. -EXTREMITIES: No cyanosis, clubbing, or pedal edema. Right leg cast NEUROLOGICAL: Gross neurological examination did not reveal any focal deficits. SKIN: No rashes. no petechiae. - Labs CBC & Chem 7: 10/12/21 04:38 10/12/21 04:38 Labs: Abnormal Lab Results - Last 24 Hours (Table) 10/12/21 10/12/21 10/12/21 Range/Units 04:38 04:38 07:12 RBC 3.78 L (4.10-5.20) X 10*6/uL Hgb 11.3 L (12.0-15.0) g/dL MCV 100.0 H (80.0-97.0) fL MCHC 29.9 L (32.0-37.0) g/dL MPV 9.2 L (9.5-12.2) fL Carbon Dioxide 34 H (22-30) mmol/L Glucose 109 H (74-99) mg/dL POC Glucose (mg/dL) 108 H (75-99) mg/dL Total Protein 5.5 L (6.3-8.2) g/dL Albumin 2.8 L (3.5-5.0) g/dL 10/12/21 Range/Units 11:50 RBC (4.10-5.20) X 10*6/uL Hgb (12.0-15.0) g/dL MCV (80.0-97.0) fL MCHC (32.0-37.0) g/dL MPV (9.5-12.2) fL Carbon Dioxide (22-30) mmol/L Glucose (74-99) mg/dL POC Glucose (mg/dL) 143 H (75-99) mg/dL Total Protein (6.3-8.2) g/dL Albumin (3.5-5.0) g/dL Microbiology - Last 24 Hours (Table) 10/07/21 22:05 Blood Culture - Preliminary Blood No Growth after 96 hours 10/09/21 06:15 Urine Culture - Final Urine,Voided Enterococcus faecalis 10/07/21 21:32 Urine Culture - Final Urine,Voided Proteus vulgaris Enterobacter aerogenes Assessment and Plan Assessment: Urinary Tract infection, culture showing enterococcus, Enterobacter and Proteus Acute on chronic copd, on 5-6L, last time she was in the hospital she was on 3 L/m of oxygen Hypokalemia, hypomagnesemia replaced per protocol Bipolar disorder, with multiple medication Hypertension Chronic Urinary retention, chronic indwelling catheter Type 2 Diabetes Anxiety History of pulmonary embolism, on lovenox Plan: This is a pleasant 66 years old female who presents with UTI, COPD exacerbation and ultimate mental status Continue with antibiotics as per ID team and adjust medication accordingly, currently she is on IV vancomycin and cefepime Discontinue Solu-Medrol and keep Symbicort. We'll try to titrate down her oxygen Please refer to psychiatrist note for her medication , she is on multiple medications including BuSpar, Klonopin, Depakote, Lamictal and Zyprexa Right leg cast is a stable. Follow-up with her orthopedic physician as an outpatient We recommend to follow up with urologist as an outpatient Labs and medication were reviewed.. Continue same treatment. Continue with symptomatic treatment. Resume home medication. Monitor lytes and vitals. DVT and GI prophylaxis. Further recommendations as per clinical course of the patient DVT prophylaxis: Subcutaneous Lovenox GI Prophylaxis: Pepcid
[2021-10-12 20:34] LABS: Glucose,Whole Blood 130 mg/dL (75-99)
[2021-10-12] MEDS: OLANZapine 10 MG TAB PO SCH (21:24)
[2021-10-12] MEDS: DIVALPROEX ER 250 MG TAB.ER.24H PO SCH (21:24)
[2021-10-12] MEDS: MONTELUKAST 10 MG TAB PO SCH (21:24)
--- NOTE | 2021-10-12 22:47 | P.PN ---
Subjective Progress Note Date: 10/12/21 Principal diagnosis: Catheter associated urinary tract infection Patient is a 66 year old female with a past medical history significant for recurrent urinary tract infection catheter associated present to the hospital with mental status changes and fever and has been diagnosed with an episode of catheter associated UTI, the patient Husain catheter was changed. On today's evaluation of his 10/12/2021 the patient remains to be afebrile, the patient is pleasantly confused but denies any chest pain shortness of breath or cough no abdominal pain and no diarrhea has been reported Objective - Vital Signs Vital signs: Vital Signs Temp 98.1 F 10/12/21 08:00 Pulse 64 10/12/21 12:11 Resp 18 10/12/21 08:00 BP 154/85 10/12/21 08:00 Pulse Ox 95 10/12/21 08:00 Intake & Output 10/11/21 10/12/21 10/12/21 18:59 06:59 18:59 Intake Total 100 Output Total 400 1000 Balance -400 -1000 100 Intake: Intake, IV Titration 100 Amount Cefepime 2 gm In Sodium 100 Chloride 0.9% 100 ml @ 25 mls/hr IVPB Q8HR [facility] Rx# :[id number] Output: Urine 400 1000 Other: Voiding Method Indwelling Catheter Indwelling Catheter Indwelling Catheter - Exam GENERAL DESCRIPTION: An elderly female lying in bed in no distress RESPIRATORY SYSTEM: Unlabored breathing , decreased breath sounds at bases HEART: S1 S2 regular rate and rhythm , ABDOMEN: Soft , no tenderness EXTREMITIES: No edema feet - Labs CBC & Chem 7: 10/12/21 04:38 10/12/21 04:38 Labs: Abnormal Lab Results - Last 24 Hours (Table) 10/12/21 10/12/21 10/12/21 Range/Units 04:38 04:38 07:12 RBC 3.78 L (4.10-5.20) X 10*6/uL Hgb 11.3 L (12.0-15.0) g/dL MCV 100.0 H (80.0-97.0) fL MCHC 29.9 L (32.0-37.0) g/dL MPV 9.2 L (9.5-12.2) fL Carbon Dioxide 34 H (22-30) mmol/L Glucose 109 H (74-99) mg/dL POC Glucose (mg/dL) 108 H (75-99) mg/dL Total Protein 5.5 L (6.3-8.2) g/dL Albumin 2.8 L (3.5-5.0) g/dL 10/12/21 Range/Units 11:50 RBC (4.10-5.20) X 10*6/uL Hgb (12.0-15.0) g/dL MCV (80.0-97.0) fL MCHC (32.0-37.0) g/dL MPV (9.5-12.2) fL Carbon Dioxide (22-30) mmol/L Glucose (74-99) mg/dL POC Glucose (mg/dL) 143 H (75-99) mg/dL Total Protein (6.3-8.2) g/dL Albumin (3.5-5.0) g/dL Microbiology - Last 24 Hours (Table) 10/07/21 22:05 Blood Culture - Preliminary Blood No Growth after 96 hours 10/09/21 06:15 Urine Culture - Final Urine,Voided Enterococcus faecalis 10/07/21 21:32 Urine Culture - Final Urine,Voided Proteus vulgaris Enterobacter aerogenes Assessment and Plan (1) UTI (urinary tract infection) Current Visit: Yes Status: Acute Code(s): N39.0 - URINARY TRACT INFECTION, SITE NOT SPECIFIED SNOMED Code(s): 83633932 Plan: 1patient presented to hospital with sepsis in this patient did have a fever elevated white count significantly positive UA likely secondary to catheter associated tract infection in this patient recently treated for a UTI secondary to Enterobacter and Pseudomonas aeruginosa. 2Foley catheter has been changed and repeat UA has been obtained with a repeat urine cultures are growing enterococcus faecalis 3patient is ALLERGIC to penicillin and sulfa patient is currently being treated with the vancomycin to cover for enterococcus faecalis with the plan for 7 days on discharge Time with Patient: Less than 30
[2021-10-13] MEDS: VANCOMYCIN 1,500 MG in SODIUM CHLORIDE 0.9% 250 ML IVPB SCH ×2 (02:17→13:42)
[2021-10-13] MEDS: LEVOTHYROXINE 88 MCG TAB PO SCH (05:42)
[2021-10-13 06:42] LABS: Glucose,Whole Blood 72 mg/dL (75-99)
[2021-10-13 07:30] LABS: African American GFR (CKD) >90 (>60 ml/min/1.73 sqM); Anion Gap 3 mmol/L; Blood Urea Nitrogen 10 mg/dL (7-17); Calcium 9.2 mg/dL (8.4-10.2); Carbon Dioxide 32 mmol/L (22-30); Chloride 104 mmol/L (98-107); Glucose 76 mg/dL (74-99); Non-African American GFR(CKD) >90 (>60 ml/min/1.73 sqM); Potassium 3.8 mmol/L (3.5-5.1); Sodium 139 mmol/L (137-145)
--- NOTE | 2021-10-13 08:10 | CDI ---
Documentation Clarification Form Date: 10/13/2021 08:01:00 AM From: Aleena Medina CCS, CCDS Admit Date: 10/08/2021 01:35:00 AM Patient Name: Haydee Mcpherson Visit Number: [id number] Discharge Date: ATTENTION: The Clinical Documentation Specialists (CDI) and [facility] Coding Staff appreciate your assistance in clarifying documentation. Please respond to the clarification below the line at the bottom and electronically sign. The CDI & [facility] Coding staff will review the response and follow-up if needed. Please note: Queries are made part of the Legal Health Record. If you have any questions, please contact the author of this message via ITS. Dr. Andrzej Wheeler: Sepsis and Catheter Associated UTI is documented by the Infectious Disease Consult on 10/08: Patient presented to hospital with sepsis in this patient did have a fever elevated white count significantly positive UA likely secondary to catheter associated tract infection in this patient recently treated for a UTI secondary to Enterobacter and Pseudomonas aeruginosa. Additional clarification regarding the etiology/cause of the clinical indicators is requested. History/Risk Factors per the 10/08 H/P: Asthma, COPD, DM, Fibromyalgia, GERD, Hypertension, Osteoarthritis, Pneumonia, PE, Hypothyroidism, Cervical Disc Disease with Stenosis & Scoliosis, Bronchitis, Bilateral Lower Extremity Cellulitis, IBS, UTIs w/Bacteremia/Sepsis. Clinical Indicators: Presented to the ED on 10/07 via EMS from a Assisted with Altered Mental Status and had fallen out of her bed. Confused. Admitted with UTI and altered mental status. 10/07 VS: T 97.0, P 71, R 18, BP 154/71, PO 93 6Lnc, BMI: 35.8 10/07 VS: T 101.2, P 83, R 28, BP 121/43, PO 89 - 92 6Lnc 10/07 LAB: WBC 9.4 (10/08: 18.6); [place] 1.1, Eos 0.8; K 3.2, Cl 94, CO2 39, Glucose 112, Total Protein 6.1, Albumin 4.4 10/08 LAB: WBC 18.6 10/07 VBG: pH 7.41, 7.48; pCO2 61, 50; HCO3 38, 36. 10/07 UA: Turbid, 2+ Protein, Trace ketones, Positive Nitrite, Large Esterase, RBC 15, WBC >182. 10/07 Urine Culture: Final: Proteus vulgaris, Enterobacter aerogenes. 10/09 Urine Culture: Final: Enterococcus faecalis. 10/07 Blood Culture: Neg @ 24 hrs, preliminary. 10/07 CT Brain: No acute intracranial process. Nonspecific white matter changes, likely secondary to chronic small vessel ischemic disease. Treatment 10/07: Husain Cather changed, Blood & urine cultures, ID Consult, O2 2Lnc, IV Rocephin 1,000 mg x1, po KDur 40 meq x1, INH Ventolin q6H/prn, INH Symbicort BID Home meds: INH Proair, Ventolin, Symbicort; Lamictal, Klonopin, Neurontin, Pepcid, Buspar, Zyprexa, Singulair, Norvasc, Habitrol, Synthroid, Lovenox sq, Depakote. In your professional opinion, please clarify if these findings signify one of the following conditions: [ ] Sepsis POA [ X ] due to: Catheter Associated UTI (Template Last Reviewed: August 2020) MTDD
[2021-10-13] MEDS: TAMSULOSIN 0.4 MG CAP.ER.24H PO SCH (08:27)
[2021-10-13] MEDS: CEFEPIME 2 GM in SODIUM CHLORIDE 0.9% 100 ML IVPB SCH ×2 (08:27→17:32)
[2021-10-13] MEDS: amLODIPine 5 MG TAB PO SCH (08:27)
[2021-10-13] MEDS: FAMOTIDINE 20 MG TAB PO SCH ×2 (08:27→19:37)
[2021-10-13] MEDS: PANTOPRAZOLE 40 MG TABLET PO SCH (08:27)
[2021-10-13] MEDS: busPIRone HCl 10 MG TAB PO SCH ×2 (08:27→19:37)
[2021-10-13] MEDS: GABAPENTIN 300 MG CAP PO SCH ×2 (08:27→19:37)
[2021-10-13] MEDS: NICOTINE 14MG/24HR PATCH TRANSDERM SCH (08:27)
[2021-10-13] MEDS: lisinopriL 20 MG TAB PO SCH (08:27)
[2021-10-13] MEDS: lamoTRIgine 100 MG TAB PO SCH ×2 (08:27→19:37)
[2021-10-13] MEDS: clonazePAM 0.5 MG TAB PO SCH ×2 (08:27→17:33)
[2021-10-13] MEDS: ENOXAPARIN 60 MG/0.6 ML SYRINGE SQ SCH (08:28)
[2021-10-13 08:46] LABS: HCT 35.3 % (37.2-46.3); HGB 10.8 g/dL (12.0-15.0); MCH 30.3 pg (27.0-32.0); MCHC 30.6 g/dL (32.0-37.0); MCV 99.2 fL (80.0-97.0); Mean Platelet Volume 8.9 fL (9.5-12.2); NRBC Per 100 WBC 0 /100 WBCS (0.0-0.0); Platelet Count 256 X 10*3/uL (140-440); RBC 3.56 X 10*6/uL (4.10-5.20); RDW 14.6 % (11.5-14.5); WBC 10.59 X 10*3/uL (4.50-10.00)
[2021-10-13] MEDS: SYMBICORT 160-4.5 MCG INHALER INHALATION SCH ×2 (08:51→19:30)
[2021-10-13] MEDS: ALBUTEROL NEBULIZED 2.5 MG/3 ML INHALATION SCH ×3 (08:51→19:30)
[2021-10-13 11:15] LABS: Glucose,Whole Blood 78 mg/dL (75-99)
[2021-10-13 11:59] LABS: Neutrophils # (M) 7.52 X 10*3/uL (2.00-8.90)
--- NOTE | 2021-10-13 16:53 | P.PN ---
Subjective This is a pleasant 66 years old female with multiple medical problems including bipolar, please refer to her past medical history. Presents initially under Dr. Wheeler service for urinary tract infection related to her Husain catheter which is changed now. She has 2 urine cultures, first one showing resistant Enterobacter plus Proteus and the second one showing cuate-cocci. Patient is being followed closely by ID team and currently she is on IV vancomycin and cefepime. WBC is 10.3, hemoglobin 11. Potassium 3.3 been replaced per protocol. Check labs in the morning Patient is awake and alert and answers questions appropriately and follows co mmands. No weakness in extremities, no concern for stroke now. Last time she was in the hospital on 05/2021 she was on a 3 L/m of oxygen, she's been evaluated by Dr. Brannon for COPD. Currently she is on 5-6 L. Chest x-ray showing bilateral infiltrates, we will repeat chest x-ray in the morning Right leg cath is in place with no pain and no other issue She is on multiple psychiatric medications including BuSpar, Klonopin, Depakote, Lamictal and Zyprexa, we will consult psychiatry team to assess her medication 10/12/2021 Patient today was awakened alert and oriented to time, place and person partially, she was anxious and somewhat agitated, overnight she was pulling her Husain catheter out and she was placed on mitten Patient wanted her medicines removed, discussed with the staff to remove the mitten and monitor her, obviously if he shouldn't keep pulling her Husain and IV line didn't need to be placed back again, patient was advised to try to avoid taking the Husain catheter out, as per previous note patient has urinary retention and she has indwelling Husain catheter per her primary service with Dr. Wheeler team. Flomax was added yesterday. The patient may benefit from urology referral as an outpatient. Contact information for Dr. Dusty fuentes and her discharge instructions. Regarding her right leg fracture she told me she's been seen by Dr. Wesley and she intends to follow up with him upon discharge, also placed on her discharge instructions Psychiatrist evaluated the patient for her psych medications, please refer to his note. Because of her agitation today and her breathing is significantly improved and she is on 5 L/m of oxygen which is close to her baseline of 4-5 and she states and chest x-ray showing improvement in her pulmonary vasculature and left lower lobe infiltrate, we will discontinue Solu-Medrol and continue with Symbicort. Patient kept on IV vancomycin and cefepime for UTI with multiple bacteria. Culture. Patient denies history of seizure and that looks like her Lamictal it is for her bipolar 10/13/2021 Patient awake and more calm today after stopping her steroids, her breathing is quiet and saturation at 4 L/m which is her baseline. No wheezing on exam. She still have some memory problem, patient could not remember me although I've been following up with her for the last 2-3 days. Patient admits she has memory problems. However she denies any respiratory symptoms, no chest pain, Husain catheter still in place and I tried to explain to her it is an indwelling catheter, she still on maintenance for trying to pull her catheter out. WBCs 10.5, hemoglobin 10.8, She remains on IV vancomycin and IV cefepime, also she is on Lovenox 60 mg daily which is home dose. Flomax added for her urinary patient with recommendation for her to follow-up with the urologist as an outpatient, Dr. Pitts suggested and placed in her discharge instructions. She is aware that her orthopedic is Dr. Wesley and thus wishes to me and she plans to follow up with him upon discharge. We will discuss with infectious disease team about discharge planning Objective - Vital Signs Vital signs: Vital Signs Temp 98.4 F 10/13/21 15:05 Pulse 74 10/13/21 16:04 Resp 18 10/13/21 15:05 BP 151/68 10/13/21 15:05 Pulse Ox 97 10/13/21 15:05 Intake & Output 10/12/21 10/13/21 10/13/21 18:59 06:59 18:59 Intake Total 100 Output Total 400 600 Balance -300 -600 Intake: Intake, IV Titration 100 Amount Cefepime 2 gm In Sodium 100 Chloride 0.9% 100 ml @ 25 mls/hr IVPB Q8HR [facility] Rx# :[id number] Output: Urine 400 600 Other: Voiding Method Indwelling Catheter Indwelling Catheter Indwelling Catheter - Exam -GENERAL: The patient is alert and oriented x3, but drowsy and easily to awake to verbal and tactile stimuli, follow commands and answer questions appropriately not in any acute distress. Well developed, well nourished. HEENT: Pupils are round and equally reacting to light. EOMI. No scleral icterus. No conjunctival pallor. Normocephalic, atraumatic. No pharyngeal erythema. No thyromegaly. CARDIOVASCULAR: S1 and S2 present. No murmurs, rubs, or gallops. -PULMONARY: Chest is clear to auscultation, no wheezing or crackles. Decreased air entry in both sides - ABDOMEN: Soft, nontender, nondistended, normoactive bowel sounds. No palpable organomegaly. Husain catheter is in place MUSCULOSKELETAL: No joint swelling or deformity. -EXTREMITIES: No cyanosis, clubbing, or pedal edema. Right leg cast NEUROLOGICAL: Gross neurological examination did not reveal any focal deficits. SKIN: No rashes. no petechiae. - Labs CBC & Chem 7: 10/13/21 06:12 10/13/21 06:12 Labs: Abnormal Lab Results - Last 24 Hours (Table) 10/12/21 10/13/21 10/13/21 Range/Units 20:33 06:12 06:12 WBC 10.59 H (4.50-10.00) X 10*3/uL RBC 3.56 L (4.10-5.20) X 10*6/uL Hgb 10.8 L (12.0-15.0) g/dL Hct 35.3 L (37.2-46.3) % MCV 99.2 H (80.0-97.0) fL MCHC 30.6 L (32.0-37.0) g/dL RDW 14.6 H (11.5-14.5) % MPV 8.9 L (9.5-12.2) fL Carbon Dioxide 32 H (22-30) mmol/L POC Glucose (mg/dL) 130 H (75-99) mg/dL 10/13/21 Range/Units 06:39 WBC (4.50-10.00) X 10*3/uL RBC (4.10-5.20) X 10*6/uL Hgb (12.0-15.0) g/dL Hct (37.2-46.3) % MCV (80.0-97.0) fL MCHC (32.0-37.0) g/dL RDW (11.5-14.5) % MPV (9.5-12.2) fL Carbon Dioxide (22-30) mmol/L POC Glucose (mg/dL) 72 L (75-99) mg/dL Microbiology - Last 24 Hours (Table) 10/07/21 22:05 Blood Culture - Preliminary Blood No Growth after 120 hours Assessment and Plan Assessment: Urinary Tract infection, culture showing enterococcus, Enterobacter and Proteus Acute on chronic copd, on 5-6L, last time she was in the hospital she was on 3 L/m of oxygen Hypokalemia, hypomagnesemia replaced per protocol Bipolar disorder, with multiple medication Hypertension Chronic Urinary retention, chronic indwelling catheter Type 2 Diabetes Anxiety History of pulmonary embolism, on lovenox Plan: This is a pleasant 66 years old female who presents with UTI, COPD exacerbation and ultimate mental status Continue with antibiotics as per ID team and adjust medication accordingly, currently she is on IV vancomycin and cefepime Continue with Symbicort. We'll try to titrate down her oxygen . Discussed with staff. No need for systemic steroids for now Please refer to psychiatrist note for her medication , she is on multiple medications including BuSpar, Klonopin, Depakote, Lamictal and Zyprexa Right leg cast is a stable. Follow-up with her orthopedic physician as an outpatient We recommend to follow up with urologist as an outpatient. Dr. Damian was placed in her discharge instructions, Dr. Wheeler T resume the care of the patient tomorrow Labs and medication were reviewed.. Continue same treatment. Continue with symptomatic treatment. Resume home medication. Monitor lytes and vitals. DVT and GI prophylaxis. Further recommendations as per clinical course of the patient DVT prophylaxis: Subcutaneous Lovenox GI Prophylaxis: Pepcid
[2021-10-13] MEDS: MONTELUKAST 10 MG TAB PO SCH (19:37)
[2021-10-13] MEDS: OLANZapine 10 MG TAB PO SCH (19:37)
[2021-10-13] MEDS: DIVALPROEX ER 250 MG TAB.ER.24H PO SCH (19:38)
--- NOTE | 2021-10-13 22:22 | P.PN ---
Subjective Progress Note Date: 10/13/21 Principal diagnosis: Catheter associated urinary tract infection Patient is a 66 year old female with a past medical history significant for recurrent urinary tract infection catheter associated present to the hospital with mental status changes and fever and has been diagnosed with an episode of catheter associated UTI, the patient Husain catheter was changed. On today's evaluation of his 10/13/2021 the patient continues to be afebrile, the patient remains to be pleasantly confused however denies any chest pain shortness of breath or cough no abdominal pain and no diarrhea has been reported Objective - Vital Signs Vital signs: Vital Signs Temp 97.7 F 10/13/21 07:07 Pulse 76 10/13/21 09:03 Resp 18 10/13/21 07:07 BP 144/70 10/13/21 07:07 Pulse Ox 95 10/13/21 07:07 Intake & Output 10/12/21 10/13/21 10/13/21 18:59 06:59 18:59 Intake Total 100 Output Total 400 600 Balance -300 -600 Intake: Intake, IV Titration 100 Amount Cefepime 2 gm In Sodium 100 Chloride 0.9% 100 ml @ 25 mls/hr IVPB Q8HR [facility] Rx# :[id number] Output: Urine 400 600 Other: Voiding Method Indwelling Catheter Indwelling Catheter Indwelling Catheter - Exam GENERAL DESCRIPTION: An elderly female lying in bed in no distress RESPIRATORY SYSTEM: Unlabored breathing , decreased breath sounds at bases HEART: S1 S2 regular rate and rhythm , ABDOMEN: Soft , no tenderness EXTREMITIES: No edema feet - Labs CBC & Chem 7: 10/13/21 06:12 10/13/21 06:12 Labs: Abnormal Lab Results - Last 24 Hours (Table) 10/12/21 10/12/21 10/13/21 Range/Units 16:34 20:33 06:12 WBC (4.50-10.00) X 10*3/uL RBC (4.10-5.20) X 10*6/uL Hgb (12.0-15.0) g/dL Hct (37.2-46.3) % MCV (80.0-97.0) fL MCHC (32.0-37.0) g/dL RDW (11.5-14.5) % MPV (9.5-12.2) fL Carbon Dioxide 32 H (22-30) mmol/L POC Glucose (mg/dL) 131 H 130 H (75-99) mg/dL 10/13/21 10/13/21 Range/Units 06:12 06:39 WBC 10.59 H (4.50-10.00) X 10*3/uL RBC 3.56 L (4.10-5.20) X 10*6/uL Hgb 10.8 L (12.0-15.0) g/dL Hct 35.3 L (37.2-46.3) % MCV 99.2 H (80.0-97.0) fL MCHC 30.6 L (32.0-37.0) g/dL RDW 14.6 H (11.5-14.5) % MPV 8.9 L (9.5-12.2) fL Carbon Dioxide (22-30) mmol/L POC Glucose (mg/dL) 72 L (75-99) mg/dL Microbiology - Last 24 Hours (Table) 10/07/21 22:05 Blood Culture - Preliminary Blood No Growth after 120 hours Assessment and Plan (1) UTI (urinary tract infection) Current Visit: Yes Status: Acute Code(s): N39.0 - URINARY TRACT INFECTION, SITE NOT SPECIFIED SNOMED Code(s): 90178715 Plan: 1patient presented to hospital with sepsis in this patient did have a fever elevated white count significantly positive UA likely secondary to catheter associated tract infection in this patient recently treated for a UTI secondary to Enterobacter and Pseudomonas aeruginosa. 2Foley catheter has been changed and repeat UA has been obtained with a repeat urine cultures are growing enterococcus faecalis 3patient is ALLERGIC to penicillin and sulfa patient to continue with the vancomycin pharmacy to dose to cover for enterococcus faecalis and continue supportive care Time with Patient: Less than 30
[2021-10-14] MEDS: CEFEPIME 2 GM in SODIUM CHLORIDE 0.9% 100 ML IVPB SCH ×2 (00:07→10:01)
[2021-10-14] MEDS: VANCOMYCIN 1,500 MG in SODIUM CHLORIDE 0.9% 250 ML IVPB SCH ×2 (03:18→13:59)
[2021-10-14] MEDS: LEVOTHYROXINE 75 MCG TAB PO SCH (04:59)
[2021-10-14 06:54] LABS: Glucose,Whole Blood 61 mg/dL (75-99)
[2021-10-14 07:20] LABS: Glucose,Whole Blood 67 mg/dL (75-99)
[2021-10-14] MEDS: LEVOTHYROXINE 88 MCG TAB PO SCH (08:24)
[2021-10-14] MEDS: ALBUTEROL NEBULIZED 2.5 MG/3 ML INHALATION SCH ×2 (08:53→11:18)
[2021-10-14] MEDS: PANTOPRAZOLE 40 MG TABLET PO SCH (08:53)
[2021-10-14] MEDS: SYMBICORT 160-4.5 MCG INHALER INHALATION SCH (08:53)
[2021-10-14] MEDS: clonazePAM 0.5 MG TAB PO SCH ×2 (10:02→18:10)
[2021-10-14] MEDS: GABAPENTIN 300 MG CAP PO SCH (10:02)
[2021-10-14] MEDS: lisinopriL 20 MG TAB PO SCH (10:02)
[2021-10-14] MEDS: NICOTINE 14MG/24HR PATCH TRANSDERM SCH (10:02)
[2021-10-14] MEDS: lamoTRIgine 100 MG TAB PO SCH (10:02)
[2021-10-14] MEDS: TAMSULOSIN 0.4 MG CAP.ER.24H PO SCH (10:02)
[2021-10-14] MEDS: FAMOTIDINE 20 MG TAB PO SCH (10:02)
[2021-10-14] MEDS: amLODIPine 5 MG TAB PO SCH (10:02)
[2021-10-14] MEDS: busPIRone HCl 10 MG TAB PO SCH (10:03)
[2021-10-14] MEDS: ENOXAPARIN 60 MG/0.6 ML SYRINGE SQ SCH (10:03)
[2021-10-14 11:49] LABS: Glucose,Whole Blood 60 mg/dL (75-99)
[2021-10-14 12:04] LABS: Glucose,Whole Blood 79 mg/dL (75-99)
[2021-10-14 14:18] VITALS: BP 189/94; PULSE 94; RESP 20; TEMP 97.8
[2021-10-14] MEDS ORDERED: LIDOCAINE 1% INJ 10MG/ML (20 ML MDV) ONE (14:29)
[2021-10-14] MEDS ORDERED: IV FLUID CONTINUATION 200 ML IV ONE (14:35)
[2021-10-14] MEDS ORDERED: LIDOCAINE 1% INJ 10MG/ML (20 ML MDV) SQ ONE (14:38)
--- NOTE | 2021-10-14 15:36 | P.DS ---
Providers Date of admission: 10/08/21 01:35 Expected date of discharge: 10/14/21 Attending physician: Andrzej Wheeler Consults: 10/08/21 15:59 Consult Physician Routine Consulting Provider: Briseida Mcdonald Consult Reason/Comments: uti Do you want consulting provider notified?: Yes 10/11/21 20:24 Consult Physician Routine Consulting Provider: Arnel Hernandez Consult Reason/Comments: polypharmacy, bipolar Do you want consulting provider notified?: Yes Primary care physician: Andrzej Wheeler Hospital Course: Patient was brought to the emergency room from [facility] for altered mental status. Patient was reported to have fallen out of bed and was more confused than normal. Patient has an extensive medical history including COPD, diabetes, hypertension, fibromyalgia, GERD, osteoarthritis, bipolar disorder, history of pulmonary embolism. Brain CT found no acute intracranial process, with nonspecific white matter changes. Chest xray shows infiltrates and atelectasis in bilateral lung flores, no changes from previous exam. Patient was recently admitted for altered mental status from UTI secondary to chronic indwelling jennings catheter. Patient required extended IV antibiotic treatment for enterobacter aerogenes and pseudomonas aeruginosa. Patient is presenting with similar symptoms and had a low grade fever on admission. WBC was 9.4. Patient is very confused on exam, repeating words and not answering questions. Antibiotics were ordered, jennings catheter will be changed. 10/09/2021 Patient was seen and assessed at bedside, continues to be confused. Alert and oriented to self, states the year is 2223. Denies any pain. Jennings catheter was changed, urine and blood culture pending. White blood cell count increased to 18.6. No fever documented overnight. Infectious disease was consulted, antibiotics were adjusted. Repeat labs in the am. 10/10/21 Was seen and examined at bedside, mental status continues to improve. Patient is alert and oriented to self, but is able to speak in complete sentences, was asking for logical things such as a brush. Patient denies any pain. White blood cell count decreased to 10.2. Preliminary urine culture shows gram- negative bacilli, we'll continue to wait for final results. Hospitalist coverage 10/11/21-10/13/2021 10/14/2021 Patient was seen and examined at bedside, patient has returned to baseline mentation, alert and oriented to self and place but not time. Sometimes gets confused and is unsure if place. Infectious disease agreed with discharge to ECF with IV antibiotics for 1 week, recommended IV Vanco dosed by pharmacy. Patient is stable for discharge. Assessment: Altered mental status, returned to baseline Urinary Tract infection, culture positive for enterococcus faecalis COPD, on baseline supplemental oxygen 2L Hypokalemia, improved Bipolar disorder Hypertension Urinary retention, chronic indwelling catheter Type 2 Diabetes Anxiety History of pulmonary embolism, on lovenox Health Concerns: multiple comorbidities Pertinent Studies: Brain CT negative for acute intracranial process Chest x-ray shows interstitial infiltrates and atelectasis in both lung flores without change Procedures: PICC line insertion, see documentation Plan - Discharge Summary Discharge Rx Participant: No New Discharge Prescriptions: New Tamsulosin [Flomax] 0.4 mg PO PC-BRKFST #7 capsule Continue busPIRone HCL [Buspar] 30 mg PO BID@0800,2100 Montelukast [Singulair] 10 mg PO HS@2100 Albuterol Sulfate [Proair Hfa] 2 puff INHALATION RT-Q6H PRN PRN Reason: Shortness Of Breath Levothyroxine Sodium [Synthroid] 150 mcg PO SUTHFRSA@0600 Albuterol Nebulized [Ventolin Nebulized] 2.5 mg INHALATION RT-TID@06,14,21 Ensure Enlive 237 ml PO TID@0800,1200,1700 Acetaminophen Tab [Tylenol] 650 mg PO Q4H PRN PRN Reason: Fever And/ Or Pain Magnesium Hydroxide [Milk of Magnesia Concentrate] 7,200 mg PO Q48H PRN PRN Reason: Constipation bisacodyL [Dulcolax] 10 mg RECTAL DAILY PRN PRN Reason: Constipation OLANZapine [ZyPREXA] 10 mg PO HS@2100 Divalproex ER [Depakote ER] 750 mg PO HS@2100 clonazePAM [KlonoPIN] 0.5 mg PO BID@0800,1700 #6 tab lisinopriL 20 mg PO DAILY@0800 Budesonide/Formoterol Fumarate [Symbicort 160-4.5 Mcg Inhaler] 2 puff INHALATION RT-BID@0800,1700 Levothyroxine Sodium [Synthroid] 175 mcg PO MOTUWE@0600 Na Phos,M-B/Na Phos,Di-Ba [Fleet Adult] 133 ml RECTAL DAILY PRN PRN Reason: Constipation amLODIPine [Norvasc] 5 mg PO DAILY@0800 Enoxaparin [Lovenox] 60 mg SQ DAILY@0800 Famotidine [Pepcid] 20 mg PO BID@0800,1700 lamoTRIgine [LaMICtal] 100 mg PO BID@08,2100 Nicotine 14Mg/24Hr Patch [Habitrol] 1 patch TRANSDERM DAILY@0800 Gabapentin [Neurontin] 300 mg PO BID@08,2099 #6 cap Discharge Medication List Montelukast [Singulair] 10 mg PO HS@209912/17/13 [History] busPIRone HCL [Buspar] 30 mg PO BID@08,209912/17/13 [History] Albuterol Sulfate [Proair Hfa] 2 puff INHALATION RT-Q6H PRN 05/07/18 [History] Levothyroxine Sodium [Synthroid] 150 mcg PO SUTHFRSA@0603/29/20 [History] lisinopriL 20 mg PO DAILY@0800 10/05/20 [History] Albuterol Nebulized [Ventolin Nebulized] 2.5 mg INHALATION RT-TID@,,06/12/21 [History] Budesonide/Formoterol Fumarate [Symbicort 160-4.5 Mcg Inhaler] 2 puff INHALATION RT-BID@0800,1700 06/12/21 [History] Acetaminophen Tab [Tylenol] 650 mg PO Q4H PRN 09/03/21 [History] Enoxaparin [Lovenox] 60 mg SQ DAILY@0800 09/03/21 [History] Ensure Enlive 237 ml PO TID@0800,1200,1700 09/03/21 [History] Famotidine [Pepcid] 20 mg PO BID@0800,1700 09/03/21 [History] Levothyroxine Sodium [Synthroid] 175 mcg PO MOTUWE@0609/03/21 [History] Magnesium Hydroxide [Milk of Magnesia Concentrate] 7,200 mg PO Q48H PRN 09/03/21 [History] Na Phos,M-B/Na Phos,Di-Ba [Fleet Adult] 133 ml RECTAL DAILY PRN 09/03/21 [History] Nicotine 14Mg/24Hr Patch [Habitrol] 1 patch TRANSDERM DAILY@0800 09/03/21 [History] amLODIPine [Norvasc] 5 mg PO DAILY@0809/03/21 [History] lamoTRIgine [LaMICtal] 100 mg PO BID@0800,209909/03/21 [History] Divalproex ER [Depakote ER] 750 mg PO HS@209910/07/21 [History] OLANZapine [ZyPREXA] 10 mg PO HS@209910/07/21 [History] bisacodyL [Dulcolax] 10 mg RECTAL DAILY PRN 10/07/21 [History] Gabapentin [Neurontin] 300 mg PO BID@799,2099 #6 cap 10/14/21 [Rx] Tamsulosin [Flomax] 0.4 mg PO PC-BRKFST #7 capsule 10/14/21 [Rx] clonazePAM [KlonoPIN] 0.5 mg PO BID@0800,1700 #6 tab 10/14/21 [Rx] Follow up Appointment(s)/Referral(s): Arnel Thomas DO [STAFF PHYSICIAN] - 1-2 days Rehan Wesley DO [Doctor of Osteopathic Medicine] - 1 Week (bone doctor, orthopedic ) Ari Damian MD [STAFF PHYSICIAN] - 10 Days (urologist , kidney doctor) Activity/Diet/Wound Care/Special Instructions: IV Vanco for 1 week, dosed by pharmacy Discharge Disposition: TRANSFER TO SNF/ECF Pending Studies Pending Results: I have personally seen and examined the patient, reviewed the documentation and agree with the assessment and plan as written. Number of minutes spent on the visit: Greater than 20.
[2021-10-14 16:18] LABS: Glucose,Whole Blood 58 mg/dL (75-99)
[2021-10-14 16:38] LABS: Glucose,Whole Blood 71 mg/dL (75-99)
--- NOTE | 2021-10-15 08:47 | IR ---
EXAMINATION TYPE: IR cvc insert >=5 years DATE OF EXAM: 10/15/2021 COMPARISON: NONE CLINICAL HISTORY: Infection Needs long-term intravenous access for antibiotics. PROCEDURE: Hand hygiene obtained with soap and water and alcohol-based hand rub. After informed consent, the skin overlying the left basilic vein was localized with ultrasound and no carlos to be compressible and patent. An ultrasound image was obtained and submitted on the patient's c smith. The overlying skin was prepped and draped and Lidocaine was used for local anesthesia. A skin dimitris was made with a scalpel. Access was gained to the vein under ultrasound guidance with a 21 gau ge needle and a 0.018 inch wire was advanced. Access site was dilated with Peel-Away sheath and cath eter tailored to the appropriate length and advanced such that the distal tip is at the cavoatrial ju nction. Spot image was obtained verifying placement. Catheter was fixed to the skin and a sterile d ressing was placed following hemostasis. Catheter was aspirated and flushed with saline. Patient wa s discharged in stable condition without complication.Maximal barrier technique is utilized. Ultraso und image is documented on the chart. Ultrasound used with sterile technique. Fluoro time and fluoroscopic images submitted to document procedure: 13 intraoperative C-arm images, 0.1 minutes fluoroscopy time IMPRESSION: STATUS POST ULTRASOUND AND FLUOROSCOPIC GUIDED PICC LINE PLACEMENT, READY FOR USE. THIS PROCEDURE WAS PERFORMED BY THE UNDERSIGNED.
[2021-10-15] MEDS ORDERED: VANCOMYCIN TROUGH DUE 1 EACH MISC MISCELLANE ONE (13:00)
--- NOTE | 2021-10-20 17:41 | P.PN ---
Subjective Progress Note Date: 10/14/21 Principal diagnosis: Catheter associated urinary tract infection Patient is a 66 year old female with a past medical history significant for recurrent urinary tract infection catheter associated present to the hospital with mental status changes and fever and has been diagnosed with an episode of catheter associated UTI, the patient Husain catheter was changed. On today's evaluation of his 10/14/2021 the patient remains to be afebrile, the patient is slightly more awake and alert today and the patient denies any chest pain shortness of breath or cough no abdominal pain and no diarrhea has been reported Objective - Vital Signs Vital signs: Vital Signs Temp 97.8 F 10/14/21 01:13 Pulse 64 10/14/21 01:13 Resp 16 10/14/21 01:13 BP 170/83 10/14/21 01:13 Pulse Ox 100 10/14/21 01:13 Intake & Output 10/13/21 10/14/21 10/14/21 18:59 06:59 18:59 Output Total 600 300 Balance -600 -300 Output: Urine 600 300 Other: Voiding Method Indwelling Catheter Indwelling Catheter - Exam GENERAL DESCRIPTION: An elderly female lying in bed in no distress RESPIRATORY SYSTEM: Unlabored breathing , decreased breath sounds at bases HEART: S1 S2 regular rate and rhythm , ABDOMEN: Soft , no tenderness EXTREMITIES: No edema feet - Labs CBC & Chem 7: 10/13/21 06:12 10/13/21 06:12 Labs: Abnormal Lab Results - Last 24 Hours (Table) 10/14/21 10/14/21 Range/Units 06:52 07:19 POC Glucose (mg/dL) 61 L 67 L (75-99) mg/dL Microbiology - Last 24 Hours (Table) 10/07/21 22:05 Blood Culture - Final Blood No Growth after 144 hours Assessment and Plan (1) UTI (urinary tract infection) Status: Acute Code(s): N39.0 - URINARY TRACT INFECTION, SITE NOT SPECIFIED SNOMED Code(s): 71151859 Plan: 1patient presented to hospital with sepsis in this patient did have a fever elevated white count significantly positive UA likely secondary to catheter associated tract infection in this patient recently treated for a UTI secondary to Enterobacter and Pseudomonas aeruginosa. 2Foley catheter has been changed and repeat UA has been obtained with a repeat urine cultures are growing enterococcus faecalis 3patient is ALLERGIC to penicillin and sulfa patient to continue with the vancomycin pharmacy to dose to cover for enterococcus faecalis for 1 week on discharge and it was outpatient follow-up, this was discussed in detail with the nurse practitioner working on discharge Time with Patient: Less than 30
== END 2021-10-14 18:55 | DRG 698 ==
LOC: EC 20:37 → 5NMEDONC 10-08 01:35 → 4SSUR 10-08 15:38
PROVIDERS: ADMIT Family Medicine; ATTEND Family Medicine
PROC: 02HV33Z Insertion of Infusion Device into Superior Vena Cava, Percutaneous Approach (ICD-10-PCS; principal; 2021-10-14 14:40)
DX: T83.511A Infection and inflammatory reaction due to indwelling urethral catheter, initial encounter (principal); A41.9 Sepsis, unspecified organism; N39.0 Urinary tract infection, site not specified; Z20.822 Contact with and (suspected) exposure to COVID-19; W06.XXXA Fall from bed, initial encounter; E11.9 Type 2 diabetes mellitus without complications; J44.9 Chronic obstructive pulmonary disease, unspecified; R33.9 Retention of urine, unspecified; B95.2 Enterococcus as the cause of diseases classified elsewhere; E83.42 Hypomagnesemia; E87.6 Hypokalemia; I10 Essential (primary) hypertension; M79.7 Fibromyalgia; F31.9 Bipolar disorder, unspecified; F41.9 Anxiety disorder, unspecified; M41.9 Scoliosis, unspecified; M48.02 Spinal stenosis, cervical region; Y84.6 Urinary catheterization as the cause of abnormal reaction of the patient, or of later complication, without mention of misadventure at the time of the procedure; K58.9 Irritable bowel syndrome, unspecified; Y92.003 Bedroom of unspecified non-institutional (private) residence as the place of occurrence of the external cause; Z86.711 Personal history of pulmonary embolism; Z87.19 Personal history of other diseases of the digestive system; Z87.440 Personal history of urinary (tract) infections; Z98.84 Bariatric surgery status; Z90.710 Acquired absence of both cervix and uterus; Z79.01 Long term (current) use of anticoagulants; Z79.51 Long term (current) use of inhaled steroids; Z79.890 Hormone replacement therapy; Z79.899 Other long term (current) drug therapy; Z86.19 Personal history of other infectious and parasitic diseases; Z82.49 Family history of ischemic heart disease and other diseases of the circulatory system
CPT/HCPCS: 36415; 36573; 70450; 71045; 80048; 80053; 80164; 80202; 81001; 82140; 82803; 83605; 83735; 84484; 85025; 85027; 85610; 85730; 87040; 87077; 87086; 87186; 87635; 93005; 94640; 94760; 96374; 99285

== ENCOUNTER 2021-10-26 20:11 | Emergency (ER) | payer MEDICARE ==
--- NOTE | 2021-10-26 20:37 | ED ---
General Adult HPI - General Chief complaint: Fall Stated complaint: Fall Time Seen by Provider: 10/26/21 20:16 Source: patient, EMS Mode of arrival: EMS Limitations: altered mental status - History of Present Illness Initial comments: Patient presents to the ED by ambulance from her [facility] for evaluation. Per EMS report, the patient was found on the ground by her [facility] staff, and she is reportedly on Lovenox. ED RN Porfirio contacted the patient's [facility] directly, and they report that they left the patient for about 2 minutes, and when they returned, the patient was on the floor. Patient is reportedly on Lovenox. Patient is A&O x 1-2 with underlying psychiatric disease at baseline per mcc report. Patient is reportedly on 2 L of nasal cannula oxygen at baseline. [facility] reports that the patient recently had a cast removed from her right lower leg due to right ankle fractures. On presentation to the ED, the patient initially denied having any pain. She then told me that both of her hips hurt. She then denied having any pain again. Patient denies head injury or headache. Patient is unable to tell me how she fell. History from the patient is very limited. - Related Data Home Medications Medication Instructions Recorded Confirmed Montelukast [Singulair] 10 mg PO HS@209912/17/13 10/26/21 busPIRone HCL [Buspar] 30 mg PO BID@08,209912/17/13 10/26/21 Albuterol Sulfate [Proair Hfa] 2 puff INHALATION RT-Q6H PRN 05/07/18 10/26/21 Levothyroxine Sodium [Synthroid] 150 mcg PO SUTHFRSA@0603/29/20 10/26/21 lisinopriL 20 mg PO DAILY@0800 10/05/20 10/26/21 Albuterol Nebulized [Ventolin 2.5 mg INHALATION RT-TID@06/12/21 10/26/21 Nebulized] Budesonide/Formoterol Fumarate 2 puff INHALATION RT-BID@0800,1700 06/12/21 10/26/21 [Symbicort 160-4.5 Mcg Inhaler] Acetaminophen Tab [Tylenol] 650 mg PO Q4H PRN 09/03/21 10/26/21 Enoxaparin [Lovenox] 60 mg SQ DAILY@0800 09/03/21 10/26/21 Ensure Enlive 237 ml PO TID@0800,1200,1700 09/03/21 10/26/21 Famotidine [Pepcid] 20 mg PO BID@0800,1700 09/03/21 10/26/21 Levothyroxine Sodium [Synthroid] 175 mcg PO MOTUWE@0600 09/03/21 10/26/21 Magnesium Hydroxide [Milk of 7,200 mg PO Q48H PRN 09/03/21 10/26/21 Magnesia Concentrate] Na Phos,M-B/Na Phos,Di-Ba [Fleet 133 ml RECTAL DAILY PRN 09/03/21 10/26/21 Adult] Nicotine 14Mg/24Hr Patch [Habitrol] 1 patch TRANSDERM DAILY@79909/03/21 10/26/21 amLODIPine [Norvasc] 5 mg PO DAILY@0800 09/03/21 10/26/21 lamoTRIgine [LaMICtal] 100 mg PO BID@0800,209909/03/21 10/26/21 Divalproex ER [Depakote ER] 750 mg PO HS@209910/07/21 10/26/21 OLANZapine [ZyPREXA] 10 mg PO HS@209910/07/21 10/26/21 bisacodyL [Dulcolax] 10 mg RECTAL DAILY PRN 10/07/21 10/26/21 Furosemide [Lasix] 20 mg PO DAILY@0800 10/26/21 10/26/21 Potassium Chloride ER [K-Dur 20] 20 meq PO DAILY@0800 10/26/21 10/26/21 Tamsulosin [Flomax] 0.4 mg PO DAILY@1100 10/26/21 10/26/21 clonazePAM [KlonoPIN] 1 mg PO TID@0800,1400,209910/26/21 10/26/21 Previous Rx's Medication Instructions Recorded Gabapentin [Neurontin] 300 mg PO BID@0800,2100 #6 cap 10/14/21 Ciprofloxacin HCl [Cipro] 250 mg PO BID 5 Days #10 tab 10/26/21 Allergies Allergy/AdvReac Type Severity Reaction Status Date / Time codeine Allergy Unknown Verified 04/10/22 21:10 Childhood Penicillins Allergy Rash/Hives Verified 10/26/21 21:10 Sulfa (Sulfonamide Allergy Rash/Hives Verified 10/26/21 21:10 Antibiotics) Review of Systems ROS Statement: Those systems with pertinent positive or pertinent negative responses have been documented in the HPI. ROS Other: All systems not noted in ROS Statement are negative. Limitations: ROS unobtainable due to patients medical condition Past Medical History Past Medical History: Asthma, COPD, Diabetes Mellitus, Fibromyalgia, GERD/Reflux, Hypertension, Osteoarthritis (OA), Pneumonia, Pulmonary Embolus (PE), Skin Disorder, Thyroid Disorder Additional Past Medical History / Comment(s): Cervical disc disease/stenosis, scoliosis, recently having numbness/tingling L side of face/neck, recently saw household coordinator for L hemidiaphragmatic elevation-pt states she was told this was probably genetic, recently bronchitis and past bronchitis, pt states recent med change (water pill) d/t electrolyte problem/kidney function being affected, pt states she has had pulmonary emboli, past bilateral lower extremity cellulitis, edema lower extremities, IBS, hemorrhoids, benign colon polyps, sinus problems, UTIs, bacteremia/sepsis, cardiac murmur, past L ankle and L wrist fractures. History of Any Multi-Drug Resistant Organisms: None Reported Past Surgical History: Adenoidectomy, Section, Cholecystectomy, Hysterectomy, Tonsillectomy Additional Past Surgical History / Comment(s): EGD, colonoscopies, gastric bypas s, surgery for deviated septum Past Anesthesia/Blood Transfusion Reactions: Previous Problems w/ Anesthesia Additional Past Anesthesia/Blood Transfusion Reaction / Comment(s): itching, some kind of problem after gastric bypass-not sure what happened Past Psychological History: Anxiety, Bipolar, Depression Smoking Status: Smoker, current status unknown Past Alcohol Use History: None Reported Past Drug Use History: None Reported - Past Family History Mother Family Medical History: Congestive Heart Failure (CHF), Hypertension Father Additional Family Medical History / Comment(s): Father at the age of 45 yrs d/t having had rheumatic fever as a child and heart valve disease. General Exam Limitations: altered mental status General appearance: alert, in no apparent distress Head exam: Present: atraumatic, normocephalic Eye exam: Present: normal appearance, PERRL, EOMI ENT exam: Present: mucous membranes moist, TM's normal bilaterally Neck exam: Present: normal inspection, other (Trachea is in midline). Absent: tenderness Respiratory exam: Present: normal lung sounds bilaterally. Absent: respiratory distress, wheezes, rales, rhonchi, stridor, chest wall tenderness Cardiovascular Exam: Present: regular rate, normal rhythm, normal heart sounds, other (Normal radial and dorsalis pedis pulses bilaterally) GI/Abdominal exam: Present: soft. Absent: distended, tenderness, guarding Extremities exam: Present: other (Pelvis is stable and nontender; patient has no apparent pain with flexion and internal/external rotation at bilateral hips; no right ankle tenderness). Absent: tenderness, pedal edema, calf tenderness Back exam: Present: normal inspection. Absent: tenderness Neurological exam: Present: alert, CN II-XII intact, other (Patient is oriented to self and to year (2021), but not to month or day). Absent: motor sensory deficit Psychiatric exam: Present: anxious Skin exam: Present: warm, dry, intact, normal color Course Vital Signs 10/26/21 10/26/21 10/26/21 20:23 20:48 22:46 Temperature 98.3 F 98.8 F Pulse Rate 81 74 75 Respiratory 24 18 18 Rate Blood Pressure 149/65 158/73 111/56 O2 Sat by Pulse 92 L 91 L 92 L Oximetry EKG Findings - EKG Comments: EKG Findings:: EKG is limited secondary to motion; I suspect normal sinus rh ythm, no ectopy, ventricular rate of 73 bpm, normal KS interval leftward axis, intraventricular conduction delay, QRS duration of 126 ms, LVH, similar in appearance to 10/07/2021 EKG Medical Decision Making - Medical Decision Making Patient has been alert and breathing comfortably while in the ED. Patient's imaging studies are negative for acute traumatic findings. Patient's UA is suggestive of possible UTI, but the patient's labs are otherwise fairly unremarkable. Patient is afebrile and without leukocytosis. Patient was given a dose of oral ciprofloxacin in the ED, and will discharge the patient back to her [facility] on a course of ciprofloxacin. I do not suspect an emergent medical condition at this time. - Lab Data Result diagrams: 10/26/21 21:40 10/26/21 21:40 Lab Results 10/26/21 10/26/21 10/26/21 Range/Units 21:40 21:40 21:40 WBC 10.8 H (3.8-10.6) k/uL RBC 3.59 L (3.80-5.40) m/uL Hgb 11.0 L (11.4-16.0) gm/dL Hct 34.8 (34.0-46.0) % MCV 97.1 (80.0-100.0) fL MCH 30.7 (25.0-35.0) pg MCHC 31.6 (31.0-37.0) g/dL RDW 14.6 (11.5-15.5) % Plt Count 212 (150-450) k/uL MPV 7.4 Neutrophils % 71 % Lymphocytes % 13 % Monocytes % 11 % Eosinophils % 3 % Basophils % 2 % Neutrophils # 7.7 (1.3-7.7) k/uL Lymphocytes # 1.4 (1.0-4.8) k/uL Monocytes # 1.1 H (0-1.0) k/uL Eosinophils # 0.3 (0-0.7) k/uL Basophils # 0.2 (0-0.2) k/uL PT 10.8 (9.0-12.0) sec INR 1.0 (<1.2) APTT 27.7 (22.0-30.0) sec Sodium 137 (137-145) mmol/L Potassium 3.7 (3.5-5.1) mmol/L Chloride 92 L (98-107) mmol/L Carbon Dioxide 39 H (22-30) mmol/L Anion Gap 6 mmol/L BUN 11 (7-17) mg/dL Creatinine 0.90 (0.52-1.04) mg/dL Est GFR (CKD-EPI)AfAm 79 (>60 ml/min/1.73 sqM) Est GFR (CKD-EPI)NonAf 68 (>60 ml/min/1.73 sqM) Glucose 102 H (74-99) mg/dL Calcium 9.1 (8.4-10.2) mg/dL Total Bilirubin 0.6 (0.2-1.3) mg/dL AST 33 (14-36) U/L ALT 11 (4-34) U/L Alkaline Phosphatase 69 (38-126) U/L Troponin I (0.000-0.034) ng/mL NT-Pro-B Natriuret Pep pg/mL Total Protein 5.6 L (6.3-8.2) g/dL Albumin 3.0 L (3.5-5.0) g/dL Urine Color Urine Appearance (Clear) Urine pH (5.0-8.0) Ur Specific [employer] (1.001-1.035) Urine Protein (Negative) Urine Glucose (UA) (Negative) Urine Ketones (Negative) Urine Blood (Negative) Urine Nitrite (Negative) Urine Bilirubin (Negative) Urine Urobilinogen (<2.0) mg/dL Ur Leukocyte Esterase (Negative) Urine RBC (0-5) /hpf Urine WBC (0-5) /hpf Urine WBC Clumps (None) /hpf Ur Squamous Epith Cells (0-4) /hpf Urine Bacteria (None) /hpf Hyaline Casts (0-2) /lpf Urine Mucus (None) /hpf Urine Yeast (Budding) (None) /hpf Valproic Acid 19.3 ug/mL 10/26/21 10/26/21 10/26/21 Range/Units 21:40 21:40 21:40 WBC (3.8-10.6) k/uL RBC (3.80-5.40) m/uL Hgb (11.4-16.0) gm/dL Hct (34.0-46.0) % MCV (80.0-100.0) fL MCH (25.0-35.0) pg MCHC (31.0-37.0) g/dL RDW (11.5-15.5) % Plt Count (150-450) k/uL MPV Neutrophils % % Lymphocytes % % Monocytes % % Eosinophils % % Basophils % % Neutrophils # (1.3-7.7) k/uL Lymphocytes # (1.0-4.8) k/uL Monocytes # (0-1.0) k/uL Eosinophils # (0-0.7) k/uL Basophils # (0-0.2) k/uL PT (9.0-12.0) sec INR (<1.2) APTT (22.0-30.0) sec Sodium (137-145) mmol/L Potassium (3.5-5.1) mmol/L Chloride (98-107) mmol/L Carbon Dioxide (22-30) mmol/L Anion Gap mmol/L BUN (7-17) mg/dL Creatinine (0.52-1.04) mg/dL Est GFR (CKD-EPI)AfAm (>60 ml/min/1.73 sqM) Est GFR (CKD-EPI)NonAf (>60 ml/min/1.73 sqM) Glucose (74-99) mg/dL Calcium (8.4-10.2) mg/dL Total Bilirubin (0.2-1.3) mg/dL AST (14-36) U/L ALT (4-34) U/L Alkaline Phosphatase (38-126) U/L Troponin I <0.012 (0.000-0.034) ng/mL NT-Pro-B Natriuret Pep 687 pg/mL Total Protein (6.3-8.2) g/dL Albumin (3.5-5.0) g/dL Urine Color Yellow Urine Appearance Cloudy H (Clear) Urine pH 6.5 (5.0-8.0) Ur Specific [employer] 1.017 (1.001-1.035) Urine Protein 1+ H (Negative) Urine Glucose (UA) Negative (Negative) Urine Ketones Negative (Negative) Urine Blood Negative (Negative) Urine Nitrite Negative (Negative) Urine Bilirubin Negative (Negative) Urine Urobilinogen <2.0 (<2.0) mg/dL Ur Leukocyte Esterase Large H (Negative) Urine RBC 19 H (0-5) /hpf Urine WBC 140 H (0-5) /hpf Urine WBC Clumps Many H (None) /hpf Ur Squamous Epith Cells 1 (0-4) /hpf Urine Bacteria Rare H (None) /hpf Hyaline Casts 9 H (0-2) /lpf Urine Mucus Occasional H (None) /hpf Urine Yeast (Budding) Many H (None) /hpf Valproic Acid ug/mL - Radiology Data Noncontrast head and cervical spine CT: Cerebral atrophy. No acute intracranial abnormality. No change. Cervical spondylotic changes. No fracture. No change. Chest x-ray: Left lower lobe infiltrate and pleural reaction slightly increased compared to the old exam. No heart failure. Pelvis x-ray: No acute abnormality of the pelvis. Right ankle x-rays: There are healing fractures of the medial and lateral malleolus. No acute fracture seen. Disposition Clinical Impression: Fall, UTI (urinary tract infection) Disposition: HOME SELF-CARE Condition: Stable Instructions (If sedation given, give patient instructions): Urinary Tract In fection in Women (ED), Fall Prevention for Older Adults (ED) Additional Instructions: Return to the ER immediately should you develop a fever, shortness of breath/trouble breathing, any significant pain, vomiting, feeling dizzy or faint, or new or worsening symptoms. Follow up closely with your primary care provider. Prescriptions: Ciprofloxacin HCl [Cipro] 250 mg PO BID 5 Days #10 tab Is patient prescribed a controlled substance at d/c from ED?: No Referrals: Andrzej Wheeler MD [Primary Care Provider] - 1-2 days Time of Disposition: 22:58
[2021-10-26 21:03] VITALS: RESP 18
--- NOTE | 2021-10-26 21:28 | XR ---
EXAMINATION TYPE: XR chest 1V portable DATE OF EXAM: 10/26/2021 COMPARISON: 10/12/2021 HISTORY: Fall. Pain TECHNIQUE: FINDINGS: There is some infiltrate in the left lower lobe. No heart failure seen. Heart appears sligh tly enlarged. There are no hilar masses. There are chest leads. IMPRESSION: Left lower lobe infiltrate and pleural reaction slightly increased compared to the old ex am. No heart failure.
--- NOTE | 2021-10-26 21:33 | XR ---
EXAMINATION TYPE: XR ankle limited RT DATE OF EXAM: 10/26/2021 COMPARISON: NONE HISTORY: Ankle pain TECHNIQUE: 2 view FINDINGS: There is some deformity of the medial and lateral malleolus related to fractures that are n ot acute. There is some callus formation. Ankle mortise is anatomic. There is plantar calcaneal spurr ing. IMPRESSION: There are healing fractures of the medial and lateral malleolus. No acute fracture seen.
--- NOTE | 2021-10-26 21:35 | XR ---
EXAMINATION TYPE: XR pelvis AP view DATE OF EXAM: 10/26/2021 COMPARISON: 09/02/2021 HISTORY: Pain. Fall TECHNIQUE: Single view FINDINGS: The pelvic ring is intact. Proximal femurs and hip joints are intact. Sacroiliac joints are intact. IMPRESSION: No acute abnormality of the pelvis.
--- NOTE | 2021-10-26 21:38 | CT ---
EXAMINATION TYPE: CT brain alannahine wo con DATE OF EXAM: 10/26/2021 COMPARISON: 09/03/2021 HISTORY: AMS CT DLP: 1406.9 mGycm Automated exposure control for dose reduction was used. There is cerebral cortical atrophy. There is no mass effect or midline shift. There is no sign of int racranial hemorrhage. Calvarium is intact skull base is intact. There is fairly normal aeration of th e mastoid sinuses. The cervical vertebra have normal alignment. There is some degenerative disc space narrowing at C5-6. No fracture seen. There is mild spurring of the endplates at multiple levels in the cervical spine. Facet joints are intact. Prevertebral soft tissues are intact. IMPRESSION: Cerebral atrophy. No acute intracranial abnormality. No change. Cervical spondylotic changes. No fracture. No change.
[2021-10-26 21:54] LABS: Basophils # (A) 0.2 k/uL (0-0.2); Basophils % (A) 2 %; Eosinophils # (A) 0.3 k/uL (0-0.7); Eosinophils % (A) 3 %; HCT 34.8 % (34.0-46.0); Lymphocytes # (A) 1.4 k/uL (1.0-4.8); Lymphocytes % (A) 13 %; MCH 30.7 pg (25.0-35.0); MCHC 31.6 g/dL (31.0-37.0); MCV 97.1 fL (80.0-100.0); Mean Platelet Volume 7.4; Monocytes # (A) 1.1 k/uL (0-1.0); Monocytes % (A) 11 %; Neutrophils # (A) 7.7 k/uL (1.3-7.7); Neutrophils % (A) 71 %; Platelet Count 212 k/uL (150-450); RBC 3.59 m/uL (3.80-5.40); RDW 14.6 % (11.5-15.5); WBC 10.8 k/uL (3.8-10.6)
[2021-10-26 22:02] LABS: Partial Thromboplastin Time 27.7 sec (22.0-30.0); Prothrombin Time 10.8 sec (9.0-12.0)
[2021-10-26 22:06] LABS: Calcium 9.1 mg/dL (8.4-10.2); Potassium 3.7 mmol/L (3.5-5.1); Total Bilirubin 0.6 mg/dL (0.2-1.3); Total Protein 5.6 g/dL (6.3-8.2)
[2021-10-26 22:12] LABS: Valproic Acid (Depakene) 19.3 ug/mL
[2021-10-26 22:21] LABS: Appearance,Urine Cloudy (Clear); Bacteria,Urine Rare /hpf; Bilirubin,Urine Negative (Negative); Blood,Urine Negative (Negative); Budding Yeast,Urine Many /hpf; Color,Urine Yellow; Glucose,Urine (UA) Negative (Negative); Hyaline Casts,Urine 9 /lpf (0-2); Ketones,Urine Negative (Negative); Leukocyte Esterase,Urine Large (Negative); Mucus,Urine Occasional /hpf; Nitrite,Urine Negative (Negative); PH, Urine 6.5 (5.0-8.0); Protein,Urine 1+ (Negative); RBC,Urine 19 /hpf (0-5); Specific Gravity,Urine 1.017 (1.001-1.035); Squamous Epithelial Cell,Urine 1 /hpf (0-4); Urobilinogen,Urine <2.0 mg/dL (<2.0); WBC,Urine 140 /hpf (0-5)
[2021-10-26] MEDS ORDERED: CIPROFLOXACIN HCL 250 MG TAB PO STA (22:44)
[2021-10-26 23:22] VITALS: BP 117/79; PULSE 79; TEMP 98.2
== END 2021-10-26 23:22 | disposition home or self-care (01) ==
LOC: EC 20:11
DX: N39.0 Urinary tract infection, site not specified (principal); E11.9 Type 2 diabetes mellitus without complications; I10 Essential (primary) hypertension; J44.9 Chronic obstructive pulmonary disease, unspecified; K21.9 Gastro-esophageal reflux disease without esophagitis; M19.90 Unspecified osteoarthritis, unspecified site; M79.7 Fibromyalgia; F31.9 Bipolar disorder, unspecified; F41.9 Anxiety disorder, unspecified; F17.200 Nicotine dependence, unspecified, uncomplicated; Z79.51 Long term (current) use of inhaled steroids; Z79.890 Hormone replacement therapy; Z79.899 Other long term (current) drug therapy; W19.XXXA Unspecified fall, initial encounter
CPT/HCPCS: 36415; 70450; 71045; 72125; 72170; 80053; 80164; 81001; 83880; 84484; 85025; 85610; 85730; 87086; 93005; 99285

== ENCOUNTER → 2021-11-19 | Outpatient (CLI) | payer MEDICARE ==
[2021-11-19 19:03] LABS: HCT 41.4 % (37.2-46.3); HGB 12.7 g/dL (12.0-15.0); MCHC 30.7 g/dL (32.0-37.0); MCV 97.6 fL (80.0-97.0); NRBC Per 100 WBC 0 /100 WBCS (0.0-0.0); Platelet Count 250 X 10*3/uL (140-440); RBC 4.24 X 10*6/uL (4.10-5.20); RDW 15.4 % (11.5-14.5); WBC 8.44 X 10*3/uL (4.50-10.00)
[2021-11-19 20:24] LABS: Iron 53 ug/dL (50-170); Vitamin B12 >2000.0 pg/mL (200.0-944.0)
== END | disposition home or self-care (01) ==
LOC: LABMARSNF 10:30 → EDSTATUS 10:54
PROVIDERS: ATTEND Family Medicine
DX: A41.9 Sepsis, unspecified organism (principal); J18.9 Pneumonia, unspecified organism; N39.0 Urinary tract infection, site not specified
CPT/HCPCS: 80175; 82607; 82728; 82747; 83540; 85027

== ENCOUNTER → 2022-07-06 | Outpatient (CLI) | payer MEDICARE ==
--- NOTE | 2022-07-06 15:48 | US ---
EXAMINATION TYPE: US thyroid st tissue head/neck DATE OF EXAM: 07/06/2022 COMPARISON: Most recent CT cervical spine October 26, 2021 CLINICAL HISTORY: E04.1 THYROID NODULE. GLAND SIZE: Right Lobe: 4.3 x 2.3 x 2.3 cm Overall Parenchyma: heterogenous Left Lobe: 2.5 x 1.1 x 0.94 cm Overall Parenchyma: heterogeneous Isthmus Thickness: 0.35 cm NODULES RIGHT: # of nodules measured on right: 1 1. 2.8 X 2.2 x 2.4 cm, mid, solid or almost completely solid, hyperechoic nodule, which is wider th an tall, with smooth margins, without echogenic foci LEFT: # of nodules measured on left: 0 ISTHMUS: # of nodules measured in the isthmus: 0 Bilateral neck scanned, circumscribed right lymph node with decreased hilar view 0.66 x 0.38 x 0.69cm . Scattered smaller nodes with same characteristics visualized bilaterally. Heterogeneous small size thyroid particularly left thyroid lobe. IMPRESSION: FNA sampling advised of dominant right-sided solid nodule. 2017 ACR TI-RADS LEVEL: TR-RADS 3 - Mildly Suspicious: Follow if > 1.5 cm, FNA if > 2.5 cm *Highest TI-RADS level nodule reported
== END | disposition home or self-care (01) ==
LOC: RADUSWWP 14:21
PROVIDERS: ATTEND Otolaryngology
DX: E04.1 Nontoxic single thyroid nodule (principal)
CPT/HCPCS: 76536

== ENCOUNTER 2022-11-13 10:37 | Inpatient (IN) | payer MEDICARE ==
--- NOTE | 2022-11-13 10:57 | ED ---
SOB HPI - General Chief Complaint: Shortness of Breath Stated Complaint: ИВАН Time Seen by Provider: 11/13/22 10:40 Source: patient, family, EMS, RN notes reviewed Mode of arrival: EMS Limitations: no limitations - History of Present Illness Initial Comments: This is a 67-year-old female who presents to the emergency department for weakness and difficulty breathing. Per EMS, the patient had been complaining of increasing shortness of breath over the last 3 weeks, with weakness over the last 1-2 weeks. Early this morning, she slumped off of the toilet onto the floor, prompting her to call EMS. She did not hit her head or sustain any loss of consciousness. When EMS arrived on scene, she had an oxygen saturation of approximately 60%. They noted that she had good waveform and believed this measurement to be accurate. She was subsequently placed on a nonrebreather and her oxygen saturation increased to 98%. Patient noted to be feeling very fatigued in the emergency department. She is alert and oriented 3. Currently denies any chest pain. Denies any fevers, chills, sore throat, chest pain, palpitations, abdominal ronel n, nausea, vomiting, diarrhea, back pain, or headaches. MD Complaint: shortness of breath Known History Of: COPD, asthma - Related Data Home Medications Medication Instructions Recorded Confirmed Montelukast [Singulair] 10 mg PO HS 12/17/13 11/13/22 busPIRone HCL [Buspar] 30 mg PO BID 12/17/13 11/13/22 Albuterol Sulfate [Proair Hfa] 2 puff INHALATION RT-QID PRN 05/07/18 11/13/22 Levothyroxine Sodium [Synthroid] 150 mcg PO DAILY 03/29/20 11/13/22 lisinopriL 20 mg PO DAILY 10/05/20 11/13/22 Budesonide/Formoterol Fumarate 2 puff INHALATION RT-BID 06/12/21 11/13/22 [Symbicort 160-4.5 Mcg Inhaler] Famotidine [Pepcid] 20 mg PO BID 09/03/21 11/13/22 amLODIPine [Norvasc] 5 mg PO DAILY 09/03/21 11/13/22 lamoTRIgine [LaMICtal] 100 mg PO BID 09/03/21 11/13/22 Divalproex ER [Depakote ER] 250 mg PO DAILY 10/07/21 11/13/22 OLANZapine [ZyPREXA] 10 mg PO HS 10/07/21 11/13/22 Tamsulosin [Flomax] 0.4 mg PO DAILY 10/26/21 11/13/22 ALPRAZolam [Xanax] 0.5 mg PO DAILY PRN 11/13/22 11/13/22 Citalopram Hydrobromide [CeleXA] 10 mg PO DAILY 11/13/22 11/13/22 Docusate [Colace] 100 mg PO BID PRN 11/13/22 11/13/22 Ferrous Sulfate [Feosol] 325 mg PO DAILY 11/13/22 11/13/22 Ipratropium-Albuterol Nebulize 3 ml INHALATION RT-QID PRN 11/13/22 11/13/22 [Duoneb 0.5 mg-3 mg/3 ml Soln] Metoprolol Tartrate [Lopressor] 25 mg PO BID 11/13/22 11/13/22 Potassium Chloride ER [K-Dur 10] 10 meq PO DAILY 11/13/22 11/13/22 Thiamine [Vitamin B-1] 100 mg PO DAILY 11/13/22 11/13/22 Allergies Allergy/AdvReac Type Severity Reaction Status Date / Time codeine Allergy Unknown Verified 11/13/22 11:37 Childhood Penicillins Allergy Rash/Hives Verified 11/13/22 11:37 Sulfa (Sulfonamide Allergy Rash/Hives Verified 11/13/22 11:37 Antibiotics) Review of Systems ROS Statement: Those systems with pertinent positive or pertinent negative responses have been documented in the HPI. ROS Other: All systems not noted in ROS Statement are negative. Past Medical History Past Medical History: Asthma, COPD, Diabetes Mellitus, Fibromyalgia, GERD/Reflux, Hypertension, Osteoarthritis (OA), Pneumonia, Pulmonary Embolus (PE), Skin Disorder, Thyroid Disorder Additional Past Medical History / Comment(s): Cervical disc disease/stenosis, scoliosis, recently having numbness/tingling L side of face/neck, recently saw institute director for L hemidiaphragmatic elevation-pt states she was told this was probably genetic, recently bronchitis and past bronchitis, pt states recent med change (water pill) d/t electrolyte problem/kidney function being affected, pt states she has had pulmonary emboli, past bilateral lower extremity cellulitis, edema lower extremities, IBS, hemorrhoids, benign colon polyps, sinus problems, UTIs, bacteremia/sepsis, cardiac murmur, past L ankle and L wrist fractures. History of Any Multi-Drug Resistant Organisms: None Reported Past Surgical History: Adenoidectomy, Section, Cholecystectomy, Hysterectomy, Tonsillectomy Additional Past Surgical History / Comment(s): EGD, colonoscopies, gastric bypa ss, surgery for deviated septum Past Anesthesia/Blood Transfusion Reactions: Previous Problems w/ Anesthesia Additional Past Anesthesia/Blood Transfusion Reaction / Comment(s): itching, some kind of problem after gastric bypass-not sure what happened Past Psychological History: Anxiety, Bipolar, Depression Smoking Status: Smoker, current status unknown Past Alcohol Use History: None Reported Past Drug Use History: None Reported - Past Family History Mother Family Medical History: Congestive Heart Failure (CHF), Hypertension Father Additional Family Medical History / Comment(s): Father at the age of 45 yrs d/t having had rheumatic fever as a child and heart valve disease. General Exam Limitations: no limitations General appearance: alert, other (fatigued) Head exam: Present: atraumatic, normocephalic, normal inspection Respiratory exam: Present: decreased breath sounds, prolonged expiratory, other (course breath sounds bilaterally) Cardiovascular Exam: Present: regular rate, normal rhythm, normal heart sounds. Absent: systolic murmur, diastolic murmur, rubs, gallop, clicks Neurological exam: Present: alert, oriented X3 Psychiatric exam: Present: normal affect, normal mood Skin exam: Present: warm, dry, intact, normal color. Absent: rash Course Vital Signs 11/13/22 11/13/22 11/13/22 10:43 10:54 10:58 Temperature 97.3 F L Pulse Rate 74 Respiratory 28 H Rate Blood Pressure 139/67 O2 Sat by Pulse 98 Oximetry Fraction of 50 40 Inspired Oxygen (FIO2) 11/13/22 11/13/22 11/13/22 12:04 12:43 13:48 Temperature Pulse Rate Respiratory Rate Blood Pressure O2 Sat by Pulse 90 L Oximetry Fraction of 40 40 Inspired Oxygen (FIO2) Medical Decision Making - Medical Decision Making This is a 67-year-old female who presents to the emergency department for shortness of breath and weakness. Was pt. sent in by a medical professional or institution? @ -No Did you speak to anyone other than the patient for history? @ -EMS Did you review nursing and triage notes? @ -Yes, and I agree, it is accurate with regards to the patient's symptoms. Were old charts reviewed? @ -No Differential Diagnosis? @ -Differential Dyspnea: Coronary syndrome, arrhythmia, tamponade, asthma, COPD, pulmonary embolism, pneumonia, pneumothorax, pulmonary effusion, anaphylaxis, diabetic ketoacidosis, flailed chest, pulmonary contusion, diaphragmatic rupture, anemia, neuromuscular, this is not meant to be an all-inclusive list. EKG interpreted by me (3pts min.)? @ -Sinus rhythm. Left axis deviation. Ventricular rate 72 beats per minute, MT interval 184 ms, QRS duration 128 ms, QTC 390 ms. X-rays interpreted by me (1pt min.)? @ -Chest x-ray obtained. My interpretation identifies bilateral interstitial opacities. CT interpreted by me (1pt min.)? @ -CTA of the chest obtained. My interpretation identifies no evidence of a pulmonary embolus. There is a right-sided pleural effusion and nodular opacities in the right lung. What testing was considered but not performed? (CT, X-rays, U/S, labs)? Why? @ -None What meds were considered but not given? Why? @ -None Did you discuss the management of the patient with other professionals? @ -Yes, Dr. Lai, who accepts the patient for admission. Did you reconcile home meds? @ -Yes Was smoking cessation discussed for >3mins.? @ -No Was critical care preformed (if so, how long)? @ -No Were there social determinants of health that impacted care today? How? (Homelessness, low income, unemployed, alcoholism, drug addiction, transportation, low edu. Level, literacy, decrease access to med. care, halfway, rehab)? @ -No Was there de-escalation of care discussed even if they declined? (Discuss DNR or withdrawal of care, Hospice)? @ -No What co-morbidities impacted this encounter? (DM, HTN, Smoking, COPD, CAD, Cancer, CVA, Hep., AIDS, mental health diagnosis, sleep apnea, morbid obesity)? @ -Asthma, COPD, HTN, Thyroid disorder Was patient admitted / discharged? @ -Admitted. After the patient was put in the examination room, she was still on the nonrebreather as applied by EMS. Given that she has COPD, she was subsequently placed on a BiPAP. Lab work obtained revealing leukocytosis, elevated d-dimer, elevated BNP, and elevated CRP. Covid, influenza, and RSV testing were negative. Chest x-ray reveals concern for CHF exacerbation versus developing pneumonia. Given the elevated d-dimer, CTA of the chest was obtained. No evidence of a pulmonary embolus was identified. There was a right-sided pleural effusion, nodular and tree-in-bud opacities in the right mid and lower lung. Radiology also noted a mass like subpleural opacity in the posterior medial right upper lobe. Neoplasm cannot be entirely excluded. Patient started on pneumonia protocol with ceftriaxone and azithromycin. Blood and sputum cultures obtained prior to abx administration. She was also given 40 mg of IV Lasix for CHF exacerbation. Patient admitted to medicine for further management of pneumonia and CHF exacerbation. Pulmonology consult was placed as well. Undiagnosed new problem with uncertain prognosis? @ -None Drug Therapy requiring intensive monitoring for toxicity (Heparin, Nitro, Insulin, Cardizem)? @ -None Were any procedures done? @ -None Diagnosis/symptom? @ -Pneumonia Acute, or Chronic, or Acute on Chronic? @ -Acute Uncomplicated (without systemic symptoms) or Complicated (systemic symptoms)? @ -Complicated Side effects of treatment? @ -None Exacerbation, Progression, or Severe Exacerbation] @ -Not applicable Poses a threat to life or bodily function? @ -Yes Diagnosis/symptom? @ -CHF Acute, or Chronic, or Acute on Chronic? @ -Acute on chronic Uncomplicated (without systemic symptoms) or Complicated (systemic symptoms)? @ -Complicated Side effects of treatment? @ -None Exacerbation, Progression, or Severe Exacerbation] @ -Severe exacerbation Poses a threat to life or bodily function? @ -Yes This case was discussed in detail with the attending ED physician, Dr. Sanchez. Presentation, findings, and treatment plan discussed in detail as well. - Lab Data Result diagrams: 11/13/22 10:53 11/13/22 10:53 Lab Results 11/13/22 11/13/22 11/13/22 Range/Units 10:53 10:53 10:53 WBC 16.1 H (3.8-10.6) k/uL RBC 4.41 (3.80-5.40) m/uL Hgb 13.1 (11.4-16.0) gm/dL Hct 41.1 (34.0-46.0) % MCV 93.4 (80.0-100.0) fL MCH 29.8 (25.0-35.0) pg MCHC 31.9 (31.0-37.0) g/dL RDW 13.1 (11.5-15.5) % Plt Count 434 (150-450) k/uL MPV 7.6 Neutrophils % 81 % Lymphocytes % 8 % Monocytes % 9 % Eosinophils % 1 % Basophils % 0 % Neutrophils # 13.1 H (1.3-7.7) k/uL Lymphocytes # 1.2 (1.0-4.8) k/uL Monocytes # 1.5 H (0-1.0) k/uL Eosinophils # 0.1 (0-0.7) k/uL Basophils # 0.1 (0-0.2) k/uL PT 10.4 (9.0-12.0) sec INR 1.0 (<1.2) APTT 25.5 (22.0-30.0) sec D-Dimer 2.60 H (<0.60) mg/L FEU VBG pH (7.31-7.41) VBG pCO2 (37-51) mmHg VBG HCO3 (24-28) mmol/L Sodium 129 L (137-145) mmol/L Potassium 5.9 H (3.5-5.1) mmol/L Chloride 97 L (98-107) mmol/L Carbon Dioxide 25 (22-30) mmol/L Anion Gap 7 mmol/L BUN 25 H (7-17) mg/dL Creatinine 0.73 (0.52-1.04) mg/dL Est GFR (CKD-EPI)AfAm >90 (>60 ml/min/1.73 sqM) Est GFR (CKD-EPI)NonAf 87 (>60 ml/min/1.73 sqM) Glucose 170 H (74-99) mg/dL Plasma Lactic Acid Joel (0.7-2.0) mmol/L Calcium 9.7 (8.4-10.2) mg/dL Magnesium 1.8 (1.6-2.3) mg/dL Total Bilirubin 0.4 (0.2-1.3) mg/dL AST 40 H (14-36) U/L ALT 33 (4-34) U/L Alkaline Phosphatase 159 H (38-126) U/L Troponin I (0.000-0.034) ng/mL C-Reactive Protein (<1.0) mg/dL NT-Pro-B Natriuret Pep pg/mL Total Protein 6.1 L (6.3-8.2) g/dL Albumin 3.4 L (3.5-5.0) g/dL Influenza Type A (PCR) (Not Detectd) Influenza Type B (PCR) (Not Detectd) RSV (PCR) (Not Detectd) SARS-CoV-2 (PCR) (Not Detectd) 11/13/22 11/13/22 11/13/22 Range/Units 10:53 10:53 10:53 WBC (3.8-10.6) k/uL RBC (3.80-5.40) m/uL Hgb (11.4-16.0) gm/dL Hct (34.0-46.0) % MCV (80.0-100.0) fL MCH (25.0-35.0) pg MCHC (31.0-37.0) g/dL RDW (11.5-15.5) % Plt Count (150-450) k/uL MPV Neutrophils % % Lymphocytes % % Monocytes % % Eosinophils % % Basophils % % Neutrophils # (1.3-7.7) k/uL Lymphocytes # (1.0-4.8) k/uL Monocytes # (0-1.0) k/uL Eosinophils # (0-0.7) k/uL Basophils # (0-0.2) k/uL PT (9.0-12.0) sec INR (<1.2) APTT (22.0-30.0) sec D-Dimer (<0.60) mg/L FEU VBG pH (7.31-7.41) VBG pCO2 (37-51) mmHg VBG HCO3 (24-28) mmol/L Sodium (137-145) mmol/L Potassium (3.5-5.1) mmol/L Chloride (98-107) mmol/L Carbon Dioxide (22-30) mmol/L Anion Gap mmol/L BUN (7-17) mg/dL Creatinine (0.52-1.04) mg/dL Est GFR (CKD-EPI)AfAm (>60 ml/min/1.73 sqM) Est GFR (CKD-EPI)NonAf (>60 ml/min/1.73 sqM) Glucose (74-99) mg/dL Plasma Lactic Acid Joel 1.1 (0.7-2.0) mmol/L Calcium (8.4-10.2) mg/dL Magnesium (1.6-2.3) mg/dL Total Bilirubin (0.2-1.3) mg/dL AST (14-36) U/L ALT (4-34) U/L Alkaline Phosphatase (38-126) U/L Troponin I 0.033 (0.000-0.034) ng/mL C-Reactive Protein (<1.0) mg/dL NT-Pro-B Natriuret Pep 5810 pg/mL Total Protein (6.3-8.2) g/dL Albumin (3.5-5.0) g/dL Influenza Type A (PCR) (Not Detectd) Influenza Type B (PCR) (Not Detectd) RSV (PCR) (Not Detectd) SARS-CoV-2 (PCR) (Not Detectd) 11/13/22 11/13/22 11/13/22 Range/Units 10:53 10:53 11:02 WBC (3.8-10.6) k/uL RBC (3.80-5.40) m/uL Hgb (11.4-16.0) gm/dL Hct (34.0-46.0) % MCV (80.0-100.0) fL MCH (25.0-35.0) pg MCHC (31.0-37.0) g/dL RDW (11.5-15.5) % Plt Count (150-450) k/uL MPV Neutrophils % % Lymphocytes % % Monocytes % % Eosinophils % % Basophils % % Neutrophils # (1.3-7.7) k/uL Lymphocytes # (1.0-4.8) k/uL Monocytes # (0-1.0) k/uL Eosinophils # (0-0.7) k/uL Basophils # (0-0.2) k/uL PT (9.0-12.0) sec INR (<1.2) APTT (22.0-30.0) sec D-Dimer (<0.60) mg/L FEU VBG pH 7.30 L (7.31-7.41) VBG pCO2 50 (37-51) mmHg VBG HCO3 24 (24-28) mmol/L Sodium (137-145) mmol/L Potassium (3.5-5.1) mmol/L Chloride (98-107) mmol/L Carbon Dioxide (22-30) mmol/L Anion Gap mmol/L BUN (7-17) mg/dL Creatinine (0.52-1.04) mg/dL Est GFR (CKD-EPI)AfAm (>60 ml/min/1.73 sqM) Est GFR (CKD-EPI)NonAf (>60 ml/min/1.73 sqM) Glucose (74-99) mg/dL Plasma Lactic Acid Joel (0.7-2.0) mmol/L Calcium (8.4-10.2) mg/dL Magnesium (1.6-2.3) mg/dL Total Bilirubin (0.2-1.3) mg/dL AST (14-36) U/L ALT (4-34) U/L Alkaline Phosphatase (38-126) U/L Troponin I (0.000-0.034) ng/mL C-Reactive Protein 15.5 H (<1.0) mg/dL NT-Pro-B Natriuret Pep pg/mL Total Protein (6.3-8.2) g/dL Albumin (3.5-5.0) g/dL Influenza Type A (PCR) Not Detected (Not Detectd) Influenza Type B (PCR) Not Detected (Not Detectd) RSV (PCR) Not Detected (Not Detectd) SARS-CoV-2 (PCR) Not Detected (Not Detectd) - Radiology Data Radiology results: report reviewed, image reviewed Disposition Clinical Impression: Pneumonia, Congestive heart failure Disposition: ADMITTED IP TO THIS HOSP
[2022-11-13 11:11] LABS: VBG PH 7.3 (7.31-7.41)
--- NOTE | 2022-11-13 11:18 | XR ---
EXAMINATION TYPE: XR chest 1V portable DATE OF EXAM: 11/13/2022 Comparison: 10/26/2021 Clinical History: 67-year-old female shortness of breath, difficulty breathing Findings: Heart is upper limits of normal in size. Bilateral interstitial opacities. Patchy opacity has not mayra lved in the right mid and lower lung. Some improvement in aeration at the left base compared to prior exam. No sizable pleural effusion on the frontal view. Impression: Border line heart size and some shifting interstitial and patchy opacities now mostly at the right mi d and lower lung. Consider mild to moderate CHF versus developing pneumonia.
[2022-11-13 11:19] LABS: Partial Thromboplastin Time 25.5 sec (22.0-30.0); Prothrombin Time 10.4 sec (9.0-12.0)
[2022-11-13 11:22] LABS: ALT 33 U/L (4-34); AST 40 U/L (14-36); African American GFR (CKD) >90 (>60 ml/min/1.73 sqM); Albumin 3.4 g/dL (3.5-5.0); Alkaline Phosphatase 159 U/L (38-126); Anion Gap 7 mmol/L; Blood Urea Nitrogen 25 mg/dL (7-17); Calcium 9.7 mg/dL (8.4-10.2); Carbon Dioxide 25 mmol/L (22-30); Chloride 97 mmol/L (98-107); Glucose 170 mg/dL (74-99); Magnesium 1.8 mg/dL (1.6-2.3); Non-African American GFR(CKD) 87 (>60 ml/min/1.73 sqM); Sodium 129 mmol/L (137-145); Total Bilirubin 0.4 mg/dL (0.2-1.3); Total Protein 6.1 g/dL (6.3-8.2)
[2022-11-13 11:24] LABS: Basophils # (A) 0.1 k/uL (0-0.2); Basophils % (A) 0 %; Eosinophils # (A) 0.1 k/uL (0-0.7); Eosinophils % (A) 1 %; HCT 41.1 % (34.0-46.0); HGB 13.1 gm/dL (11.4-16.0); Lymphocytes # (A) 1.2 k/uL (1.0-4.8); Lymphocytes % (A) 8 %; MCH 29.8 pg (25.0-35.0); MCHC 31.9 g/dL (31.0-37.0); MCV 93.4 fL (80.0-100.0); Mean Platelet Volume 7.6; Monocytes # (A) 1.5 k/uL (0-1.0); Monocytes % (A) 9 %; Neutrophils # (A) 13.1 k/uL (1.3-7.7); Neutrophils % (A) 81 %; Platelet Count 434 k/uL (150-450); RBC 4.41 m/uL (3.80-5.40); RDW 13.1 % (11.5-15.5); WBC 16.1 k/uL (3.8-10.6)
[2022-11-13 11:26] LABS: Potassium 5.9 mmol/L (3.5-5.1)
--- NOTE | 2022-11-13 13:09 | CT ---
EXAMINATION TYPE: CT chest angio for PE DATE OF EXAM: 11/13/2022 COMPARISON: None HISTORY: 67-year-old female SOB, elevated d dimer TECHNIQUE: Contiguous axial scanning of the chest performed with IV Contrast, patient injected with 1 00 mL of Isovue 300. Coronal/sagittal MIP reconstructions performed. CT DLP: 373.4 mGycm Automated exposure control for dose reduction was used. FINDINGS: A 2.4 cm right thyroid lobe nodule slightly larger from 2.3 cm. Relative stability suggests a benign process. Consider annual surveillance with thyroid ultrasound. Generalized anasarca change. Heart mildly enlarged. No flattening of the interventricular septum though there is mild reflux of co ntrast into the hepatic veins. Ectatic ascending aorta 2.7 cm with conventional arch vessel branching anatomy. Satisfactory opacification of the pulmonary arterial system with large caliber to the main right and left pulmonary arteries measuring up to 2.7 cm There is breathing motion artifact limiting evaluation. No definite pulmonary embolus. Lower right paratracheal node measuring 1.9 cm. AP window node measuring 1.0 cm. Right hilar node ector suring 2.5 cm. All increased from 2020. Multifocal areas of groundglass density. Some tree-in-bud opacities suggested at the right mid and lo wer lung. There is a small right pleural effusion. Prominent dependent atelectasis on both sides. 2.7 cm masslike opacity posteromedial right upper lobe. Background mild emphysematous change. Motion limited upper abdomen. Postsurgical change this below the GE junction redemonstrated. Moderate to advanced spondylotic change throughout the thoracic and visualized upper lumbar spine. IMPRESSION: 1. CONSTELLATION OF FINDINGS INCLUDE GENERALIZED ANASARCA, MILD CARDIOMEGALY, PULMONARY ARTERIAL HYPE RTENSION, SMALL RIGHT PLEURAL EFFUSION, AND SCATTERED GROUNDGLASS CHANGES. CORRELATE FOR CHF WITH PUL MONARY VASCULAR CONGESTION. 2. ADDITIONAL scattered nodular and tree-in-bud opacities right mid and lower lung. Correlate to excl ude infectious bronchiolitis, aspiration, or atypical infections. 3. Masslike 2.7 cm subpleural opacity posteromedial right upper lobe. Possible focal airspace disease /pneumonia. Short interval follow-up after treatment to exclude lung cancer here. 4. Extensive breathing motion artifact limiting assessment for pulmonary embolus. No definite pulmona ry embolus is seen.
[2022-11-13] MEDS ORDERED: AZITHROMYCIN 500 MG in SODIUM CHLORIDE 0.9% 250 ML IVPB STA (13:11)
[2022-11-13] MEDS ORDERED: PNEUMONIA PROTOCOL UTILIZED 1 EACH MISC PO PRN (13:11)
[2022-11-13] MEDS ORDERED: FUROSEMIDE 10 MG/ML 4 ML VIAL IV STA (13:12)
[2022-11-13] MEDS ORDERED: ACETAMINOPHEN TAB 325 MG TAB PO PRN (13:20)
[2022-11-13] MEDS ORDERED: NALOXONE 0.4 MG/ML 1 ML VIAL IV PRN (13:20)
[2022-11-13 14:29] LABS: Amorphous Sediment,Urine Rare /hpf; Appearance,Urine Clear (Clear); Bilirubin,Urine Negative (Negative); Blood,Urine Negative (Negative); Color,Urine Yellow; Glucose,Urine (UA) Negative (Negative); Hyaline Casts,Urine 137 /lpf (0-2); Ketones,Urine Negative (Negative); Leukocyte Esterase,Urine Moderate (Negative); Mucus,Urine Rare /hpf; Nitrite,Urine Negative (Negative); PH, Urine 5.5 (5.0-8.0); Protein,Urine Trace (Negative); Specific Gravity,Urine 1.034 (1.001-1.035); Squamous Epithelial Cell,Urine 1 /hpf (0-4); WBC,Urine 9 /hpf (0-5)
[2022-11-13] MEDS: KETOROLAC 15 MG/ML 1 ML VIAL IVP PRN (14:42)
[2022-11-13] MEDS ORDERED: DOCUSATE 100 MG CAP PO PRN (14:43)
[2022-11-13] MEDS ORDERED: ALPRAZolam 0.5 MG TAB PO PRN (14:43)
--- NOTE | 2022-11-13 15:49 | P.CNPUL ---
History of Present Illness Consult date: 11/13/22 Requesting physician: Saeed E Ming Reason for consult: dyspnea, abnormal CXR/CT Chief complaint: Shortness of breath, weakness History of present illness: This is a 67-year-old female patient with a known history of oxygen dependent chronic obstructive pulmonary disease, chronic tobacco dependence, anxiety/depression, bipolar disorder, diabetes mellitus, fibromyalgia, hypertension, hypothyroidism. She was brought into the emergency room earlier this morning with progressive weakness and shortness of breath over the past 2-3 weeks. This morning she was so weak she slumped off the toilet and onto the floor. EMS was called. Denied any injury. Her O2 saturations on arrival in room air was 60%. Chest x-ray revealed borderline heart size and some shifting interstitial and patchy opacities in the right mid and lower lung. CT angiogram revealed constellation of findings including generalized anasarca, mild cardiomegaly, pulmonary artery hypertension, small right pleural effusion, scattered groundglass changes. Correlate for CHF with pulmonary vascular congestion. There is also some scattered nodular entry and bud opacities in the right mid and lower lung. Correlate to exclude infectious bronchiolitis, aspirations or atypical infections. There is a masslike 2.7 cm subpleural opacity in the posterior medial right upper lobe. Possible focal airspace disease/pneumonia. Extensive breathing motion artifact also noted. Difficult for the assessment for pulmonary embolus but no definite embolus seen. White count 16.1. Hemoglobin 13.1. Platelets 434. D-dimer 2.60. Sodium 129. Potassium 5.9. Chloride 97. Bicarb 25. BUN 25. Creatinine 0.73. Glucose 170. AST 40. ALT 33. C-reactive protein 15.5. ProBNP 5810. Urinalysis with moderate leukocytes, high WBCs and mucus. Influenza screen negative. RSV screen negative. COVID-19 screen negative. She is seen today in consultation in the emergency department. She is awake and alert. She is currently on BiPAP 12/6 at 40% FiO2 maintaining O2 saturations in the low 90s. She is in sinus rhythm. She is somewhat computed as to why she's here in the hospital. She denied any difficulty swallowing. She has been short of breath with cough and congestion. No hemoptysis. She's been initiated on ceftriaxone and DuoNeb inhalations along with Symbicort and IV Solu-Medrol. She's also been initiated on IV diuretics. Review of Systems REVIEW OF SYSTEMS: CONSTITUTIONAL: Generalized weakness. Denies any recent significant weight loss or weight gain. EYES: Denies change in vision. EARS, NOSE, MOUTH, THROAT: Denies headaches, denies sore throat. CARDIOVASCULAR: Denies chest pain, palpitations or syncopal episodes. RESPIRATORY: Positive for shortness of breath, cough, congestion no hemoptysis. GASTROINTESTINAL: Denies change in appetite, denies abdominal pain GENITOURINARY: Denies hematuria, denies infections. MUSKULOSKELETAL: Denies pain, denies swelling. INTEGUMENTARY: Denies rash, denies eczema. NEUROLOGICAL: Denies recent memory loss, no recent seizure activity. PSYCHIATRIC: Denies anxiety, denies depression. HEMATOLOGIC/LYMPHATIC: Denies anemia, denies enlarged lymph nodes. Past Medical History Past Medical History: Asthma, COPD, Diabetes Mellitus, Fibromyalgia, GERD/Reflux, Hypertension, Osteoarthritis (OA), Pneumonia, Pulmonary Embolus (PE), Skin Disorder, Thyroid Disorder Additional Past Medical History / Comment(s): Cervical disc disease/stenosis, scoliosis, recently having numbness/tingling L side of face/neck, recently saw brick paver for L hemidiaphragmatic elevation-pt states she was told this was probably genetic, recently bronchitis and past bronchitis, pt states recent med change (water pill) d/t electrolyte problem/kidney function being affected, pt states she has had pulmonary emboli, past bilateral lower extremity cellulitis, edema lower extremities, IBS, hemorrhoids, benign colon polyps, sinus problems, UTIs, bacteremia/sepsis, cardiac murmur, past L ankle and L wrist fractures. History of Any Multi-Drug Resistant Organisms: None Reported Past Surgical History: Adenoidectomy, Section, Cholecystectomy, Hysterectomy, Tonsillectomy Additional Past Surgical History / Comment(s): EGD, colonoscopies, gastric bypass, surgery for deviated septum Past Anesthesia/Blood Transfusion Reactions: Previous Problems w/ Anesthesia Additional Past Anesthesia/Blood Transfusion Reaction / Comment(s): itching, some kind of problem after gastric bypass-not sure what happened Past Psychological History: Anxiety, Bipolar, Depression Smoking Status: Smoker, current status unknown Past Alcohol Use History: None Reported Past Drug Use History: None Reported - Past Family History Mother Family Medical History: Congestive Heart Failure (CHF), Hypertension Father Additional Family Medical History / Comment(s): Father at the age of 45 yrs d/t having had rheumatic fever as a child and heart valve disease. Medications and Allergies Home Medications Medication Instructions Recorded Confirmed Type Montelukast [Singulair] 10 mg PO HS 12/17/13 11/13/22 History busPIRone HCL [Buspar] 30 mg PO BID 12/17/13 11/13/22 History Albuterol Sulfate [Proair Hfa] 2 puff INHALATION RT-QID PRN 05/07/18 11/13/22 History Levothyroxine Sodium [Synthroid] 150 mcg PO DAILY 03/29/20 11/13/22 History lisinopriL 20 mg PO DAILY 10/05/20 11/13/22 History Budesonide/Formoterol Fumarate 2 puff INHALATION RT-BID 06/12/21 11/13/22 History [Symbicort 160-4.5 Mcg Inhaler] Famotidine [Pepcid] 20 mg PO BID 09/03/21 11/13/22 History amLODIPine [Norvasc] 5 mg PO DAILY 09/03/21 11/13/22 History lamoTRIgine [LaMICtal] 100 mg PO BID 09/03/21 11/13/22 History Divalproex ER [Depakote ER] 250 mg PO DAILY 10/07/21 11/13/22 History OLANZapine [ZyPREXA] 10 mg PO HS 10/07/21 11/13/22 History Tamsulosin [Flomax] 0.4 mg PO DAILY 10/26/21 11/13/22 History ALPRAZolam [Xanax] 0.5 mg PO DAILY PRN 11/13/22 11/13/22 History Citalopram Hydrobromide [CeleXA] 10 mg PO DAILY 11/13/22 11/13/22 History Docusate [Colace] 100 mg PO BID PRN 11/13/22 11/13/22 History Ferrous Sulfate [Feosol] 325 mg PO DAILY 11/13/22 11/13/22 History Ipratropium-Albuterol Nebulize 3 ml INHALATION RT-QID PRN 11/13/22 11/13/22 History [Duoneb 0.5 mg-3 mg/3 ml Soln] Metoprolol Tartrate [Lopressor] 25 mg PO BID 11/13/22 11/13/22 History Potassium Chloride ER [K-Dur 10] 10 meq PO DAILY 11/13/22 11/13/22 History Thiamine [Vitamin B-1] 100 mg PO DAILY 11/13/22 11/13/22 History Allergies Allergy/AdvReac Type Severity Reaction Status Date / Time codeine Allergy Unknown Verified 11/13/22 11:37 Childhood Penicillins Allergy Rash/Hives Verified 11/13/22 11:37 Sulfa (Sulfonamide Allergy Rash/Hives Verified 11/13/22 11:37 Antibiotics) Physical Exam Vitals: Vital Signs Temp Pulse Resp BP Pulse Ox FiO2 11/13/22 15:00 68 18 116/60 96 11/13/22 13:48 40 11/13/22 12:43 90 L 11/13/22 12:04 40 11/13/22 10:58 40 11/13/22 10:54 50 11/13/22 10:43 97.3 F L 74 28 H 139/67 98 Intake and Output 11/13/22 11/13/22 11/13/22 06:59 14:59 22:59 Other: Weight 84.096 kg GENERAL EXAM: Alert, pleasant 67-year-old female, on BiPAP 06/23 at 40% FiO2, fairly comfortable in no apparent distress. HEAD: Normocephalic. EYES: Normal reaction of pupils, equal size. NOSE: Clear with pink turbinates. THROAT: No erythema or exudates. NECK: No masses, no JVD. CHEST: No chest wall deformity. LUNGS: Equal air entry with crackles in the posterior bases right greater than left. CVS: S1 and S2 normal with no audible murmur, regular rhythm. ABDOMEN: No hepatosplenomegaly, normal bowel sounds, no guarding or rigidity. SPINE: No scoliosis or deformity SKIN: No rashes CENTRAL NERVOUS SYSTEM: No focal deficits, tone is normal in all 4 extremities. EXTREMITIES: There is no peripheral edema. No clubbing, no cyanosis. Peripheral pulses are intact. Results - Laboratory Findings CBC and BMP: 11/13/22 10:53 11/13/22 10:53 PT/INR, D-dimer PT 10.4 sec (9.0-12.0) 11/13/22 10:53 INR 1.0 (<1.2) 11/13/22 10:53 D-Dimer 2.60 mg/L FEU (<0.60) H 11/13/22 10:53 Abnormal lab findings: Abnormal Labs 11/13/22 11/13/22 11/13/22 10:53 10:53 10:53 WBC 16.1 H Neutrophils # 13.1 H Monocytes # 1.5 H D-Dimer 2.60 H VBG pH Sodium 129 L Potassium 5.9 H Chloride 97 L BUN 25 H Glucose 170 H AST 40 H Alkaline Phosphatase 159 H C-Reactive Protein Total Protein 6.1 L Albumin 3.4 L Urine Protein Ur Leukocyte Esterase Urine WBC Amorphous Sediment Hyaline Casts Urine Mucus 11/13/22 11/13/22 11/13/22 10:53 11:02 13:27 WBC Neutrophils # Monocytes # D-Dimer VBG pH 7.30 L Sodium Potassium Chloride BUN Glucose AST Alkaline Phosphatase C-Reactive Protein 15.5 H Total Protein Albumin Urine Protein Trace H Ur Leukocyte Esterase Moderate H Urine WBC 9 H Amorphous Sediment Rare H Hyaline Casts 137 H Urine Mucus Rare H - Diagnostic Findings Chest x-ray: image reviewed CT scan - chest: image reviewed Assessment and Plan Assessment: Acute hypoxemic respiratory failure secondary to an acute exacerbation of suspected diastolic versus systolic congestive heart failure along with suspected underlying community-acquired pneumonia. Pro-calcitonin pending. Chronic obstructive pulmonary disease his FEV1 value 64% of predicted History of interstitial lung disease Chronic tobacco dependence History of bipolar disorder Diabetes mellitus Fibromyalgia Hypertension Hypothyroidism Plan: The patient was seen and evaluated CAT scan, chest x-ray, labs and medications reviewed Continue Symbicort, DuoNeb inhalations, IV Solu-Medrol Continue ceftriaxone and azithromycin Pro-calcitonin pending Continue IV diuretics Titrate the FiO2 as tolerated We will continue to follow and make further recommendations based on her clinical status I have personally seen and examined the patient, performed the documentation and the assessment and plan as written. Number of minutes spent on the visit: 20.
[2022-11-13 16:24] LABS: Glucose,Whole Blood 126 mg/dL (70-110)
[2022-11-13] MEDS: methylPREDNISolone SOD SUCCI 40 MG/ML 1 ML VIAL IV SCH (17:24)
[2022-11-13 19:41] LABS: Calcium 9.3 mg/dL (8.4-10.2); Potassium 5.6 mmol/L (3.5-5.1)
[2022-11-13 20:16] LABS: Glucose,Whole Blood 120 mg/dL (70-110)
[2022-11-13] MEDS: SYMBICORT 160-4.5 MCG INHALER INHALATION SCH (20:22)
[2022-11-13] MEDS: IPRATROPIUM-ALBUTEROL 3 ML NEB INHALATION PRN (20:23)
[2022-11-13] MEDS: FUROSEMIDE 10 MG/ML 4 ML VIAL IV SCH (20:56)
[2022-11-13] MEDS: HEPARIN SODIUM,PORCINE/PF 5,000 UNIT/0.5 ML SYRINGE SQ SCH (20:58)
[2022-11-13] MEDS: busPIRone HCl 10 MG TAB PO SCH (21:06)
[2022-11-13] MEDS: lamoTRIgine 100 MG TAB PO SCH (21:07)
[2022-11-13] MEDS: METOPROLOL TARTRATE 25 MG TAB PO SCH (21:08)
[2022-11-13] MEDS: FAMOTIDINE 20 MG TAB PO SCH (21:08)
[2022-11-13] MEDS: MONTELUKAST 10 MG TAB PO SCH (21:08)
[2022-11-13] MEDS: OLANZapine 10 MG TAB PO SCH (21:09)
[2022-11-14] MEDS: methylPREDNISolone SOD SUCCI 40 MG/ML 1 ML VIAL IV SCH ×3 (00:08→17:36)
[2022-11-14] MEDS ORDERED: SODIUM ZIRCONIUM CYCLOSILICATE 10 GM PACKET PO ONE ×2 (01:04→18:29)
--- NOTE | 2022-11-14 02:52 | HP ---
HISTORY AND PHYSICAL CHIEF COMPLAINT: Shortness of breath. HISTORY OF PRESENT ILLNESS: This is a 67-year-old woman with a past medical history of multiple medical problems including COPD, asthma, has presented with shortness of breath to [facility]. The patient is mildly confused and pulse ox was down in 80s. The chest x-ray showed evidence of pneumonia versus mass lesion and possible CHF as well. The patient was given BiPAP in the ER. Pulmonary consultation with Dr. Roche is underway. The possibility of CHF is also being considered. Underlying pneumonia is also a consideration. There is no history of any fever, rigors, or chills. PAST MEDICAL HISTORY: Reviewed, include COPD, asthma, rest of the history and rest of the chart is also reviewed. HOME MEDICATIONS: Reviewed include thiamine, dose and rest of the medications reviewed. ALLERGIES: Reviewed codeine, rest of the allergies reviewed. FAMILY HISTORY: History of CHF, hypertension. SOCIAL HISTORY: History of smoking. REVIEW OF SYSTEMS: Could not be taken as the patient is confused. PHYSICAL EXAMINATION: VITAL SIGNS: Pulse 68, blood pressure 116/60, respirations 18. HEENT: Conjunctivae normal. NECK: No jugular venous distention. CARDIOVASCULAR: S1, S2 muffled. RESPIRATIONS: Bilateral scattered rhonchi. ABDOMEN: Soft. LEGS: No edema. No swelling. NERVOUS SYSTEM: Diffusely weak. SKIN: No ulcer, rash, bleeding JOINTS: No active deforming arthropathy. LABORATORY DATA: Reviewed, chest x-ray reviewed, CAT scan reviewed. ASSESSMENT: 1. Possible CHF acute exacerbation with acute hypoxic respiratory failure. 2. Possible COPD, asthma, acute exacerbation with possible right-sided pneumonia. 3. Rule out mass lesion. 4. Elevated D-dimer with no evidence of pulmonary embolism. 5. Change in mental status, metabolic encephalopathy. 6. History of diabetes mellitus type 2. 7. Hypertension. 8. DJD. 9. History of pulmonary embolism. 10.Multiple medical issues. RECOMMENDATIONS AND DISCUSSION: This 67-year-old woman presented with multiple complex medical issues, we will monitor the patient closely. We will initiate broad-spectrum IV antibiotics, bronchodilators, steroids. I would also recommend diuretics, cardiology pulmonology consultation. Guarded prognosis because of multiple complex medical issues. Further recommendations to follow. Home medications will be continued once they are confirmed. MMODL / IJN: [id number] /
[2022-11-14 05:56] LABS: Glucose,Whole Blood 145 mg/dL (70-110)
[2022-11-14] MEDS: LEVOTHYROXINE 75 MCG TAB PO SCH (06:26)
--- NOTE | 2022-11-14 07:01 | XR ---
EXAMINATION TYPE: XR chest 1V DATE OF EXAM: 11/14/2022 COMPARISON: 10/12/2021. HISTORY: Shortness of breath TECHNIQUE: Single frontal view of the chest is obtained. FINDINGS: As on the prior study, there is moderate diffuse interstitial opacity which could be chronic in natur e or development of recurrent pulmonary vascular congestion and interstitial edema. Heart size is pro minent and the findings raise the question of CHF and clinical correlation is recommended. There is a small left pleural effusion which was seen previously as well. There is no pneumothorax. The osseous structures are intact IMPRESSION: Findings similar to that seen on the study of 10/12/2021 raising question of recurrent CHF versus [facility] interstitial opacity. Clinical correlation is recommended.
[2022-11-14 08:20] LABS: Basophils % (A) 0 %; Eosinophils % (A) 0 %; HCT 39.1 % (34.0-46.0); Lymphocytes % (A) 8 %; MCHC 30.7 g/dL (31.0-37.0); MCV 94.5 fL (80.0-100.0); Monocytes # (A) 0.3 k/uL (0-1.0); Monocytes % (A) 2 %; Neutrophils # (A) 10.9 k/uL (1.3-7.7); Neutrophils % (A) 88 %; Platelet Count 446 k/uL (150-450); RBC 4.14 m/uL (3.80-5.40); RDW 13.1 % (11.5-15.5); WBC 12.3 k/uL (3.8-10.6)
[2022-11-14 08:41] LABS: Albumin 2.9 g/dL (3.5-5.0); Calcium 9.3 mg/dL (8.4-10.2); Potassium 5.9 mmol/L (3.5-5.1); Total Bilirubin 0.1 mg/dL (0.2-1.3); Total Protein 5.4 g/dL (6.3-8.2)
[2022-11-14] MEDS: CITALOPRAM HYDROBROMIDE 10 MG TAB PO SCH (08:51)
[2022-11-14] MEDS: METOPROLOL TARTRATE 25 MG TAB PO SCH ×2 (08:51→20:22)
[2022-11-14] MEDS: lamoTRIgine 100 MG TAB PO SCH ×2 (08:51→20:24)
[2022-11-14] MEDS: amLODIPine 5 MG TAB PO SCH (08:51)
[2022-11-14] MEDS: FUROSEMIDE 10 MG/ML 4 ML VIAL IV SCH ×2 (08:51→20:26)
[2022-11-14] MEDS: THIAMINE 100 MG TAB PO SCH (08:52)
[2022-11-14] MEDS: TAMSULOSIN 0.4 MG CAP.ER.24H PO SCH (08:52)
[2022-11-14] MEDS: AZITHROMYCIN 500 MG TAB PO SCH (08:52)
[2022-11-14] MEDS: FERROUS SULFATE 325 MG TAB PO SCH (08:52)
[2022-11-14] MEDS: FAMOTIDINE 20 MG TAB PO SCH ×2 (08:52→20:23)
[2022-11-14] MEDS: busPIRone HCl 10 MG TAB PO SCH ×2 (08:52→20:22)
[2022-11-14] MEDS: lisinopriL 20 MG TAB PO SCH (08:52)
[2022-11-14] MEDS: HEPARIN SODIUM,PORCINE/PF 5,000 UNIT/0.5 ML SYRINGE SQ SCH ×2 (08:52→20:39)
[2022-11-14] MEDS: DIVALPROEX ER 250 MG TAB.ER.24H PO SCH (08:52)
[2022-11-14] MEDS ORDERED: POTASSIUM CHLORIDE ER 10 MEQ TAB.ER.PRT PO SCH (09:00)
[2022-11-14] MEDS ORDERED: PANTOPRAZOLE 40 MG/10 ML VIAL IVP SCH (09:00)
[2022-11-14] MEDS: SYMBICORT 160-4.5 MCG INHALER INHALATION SCH ×2 (09:06→20:24)
[2022-11-14] MEDS: IPRATROPIUM-ALBUTEROL 3 ML NEB INHALATION PRN ×2 (09:07→16:25)
[2022-11-14 11:44] LABS: Glucose,Whole Blood 141 mg/dL (70-110)
--- NOTE | 2022-11-14 13:06 | CA ---
Transthoracic Echo Report Name: Haydee Mcpherson Age: 67 Gender: F : 1955 Exam Date: 11/14/2022 08:03 Exam Location: [facility] Ht (in): 62 Wt (lb): 185 Ordering Physician: Megan Esparza MD Attending/Referring Phys: Economic Consultant Kei Grey RDCS Procedure CPT: Indications: chf Cardiac Hx: HTN; CHF Technical Quality: Fair Contrast 1: Total Dose (mL): Contrast 2: Total Dose (mL): MEASUREMENTS (Male / Female) Normal Values 2D ECHO LV Diastolic Diameter PLAX 4.1 cm 4.2 - 5.9 / 3.9 - 5.3 cm LV Systolic Diameter PLAX 2.5 cm LV Fractional Shortening PLAX 38.7 % IVS Diastolic Thickness 1.1 cm 0.6 - 1.0 / 0.6 - 0.9 cm IVS Systolic Thickness 2.0 cm LVPW Diastolic Thickness 1.3 cm 0.6 - 1.0 / 0.6 - 0.9 cm LVPW Systolic Thickness 1.7 cm LV Relative Wall Thickness 0.6 RV Internal Dim ED PLAX 2.9 cm LVOT Diameter 1.9 cm LA Systolic Diameter LX 3.7 cm 3.0 - 4.0 / 2.7 - 3.8 cm LV Diastolic Volume MOD BP 96.3 cm??? 67 - 155 / 56 - 104 cm??? LV Systolic Volume MOD BP 41.8 cm??? 22 - 58 / 19 - 49 cm??? LV Ejection Fraction MOD BP 56.6 % >= 55 % LV Stroke Volume MOD BP 54.5 cm??? LV Diastolic Volume MOD 4C 67.7 cm??? LV Systolic Volume MOD 4C 23.9 cm??? LV Ejection Fraction MOD 4C 64.7 % LV Stroke Volume MOD 4C 43.8 cm??? LV Diastolic Length 4C 6.7 cm LV Systolic Length 4C 4.3 cm LV Diastolic Volume MOD 2C 120.2 cm??? LV Systolic Volume MOD 2C 54.2 cm??? LV Ejection Fraction MOD 2C 54.9 % LV Stroke Volume MOD 2C 66.0 cm??? LV Diastolic Length 2C 7.9 cm LV Systolic Length 2C 5.9 cm M-MODE Aortic Root Diameter MM 3.2 cm LA Systolic Diameter MM 4.9 cm LA Ao Ratio MM 1.5 AV Cusp Separation MM 1.6 cm DOPPLER AV Peak Velocity 156.9 cm/s AV Peak Gradient 9.8 mmHg MV Deceleration [place] 528.3 cm/s??? Mitral E Point Velocity 105.4 cm/s Mitral A Point Velocity 94.7 cm/s Mitral E to A Ratio 1.1 MV Deceleration Time 199.4 ms MV E' Velocity 6.5 cm/s Mitral E to MV E' Ratio 16.1 TR Peak Velocity 156.0 cm/s TR Peak Gradient 9.7 mmHg Right Ventricular Systolic Press 19.7 mmHg PV Peak Velocity 119.8 cm/s PV Peak Gradient 5.7 mmHg FINDINGS Left Ventricle Left ventricular ejection fraction is estimated at 55 %. Mild concentric left ventricular hypertrophy. Normal basal systolic function. Right Ventricle Normal right ventricular size and function. Right Atrium Normal right atrial size. Left Atrium Mild left atrial dilatation. Mitral Valve Mitral valve thickened. Trace to mild mitral regurgitation. Aortic Valve Trileaflet aortic valve. Diffuse thickening (sclerosis) of the aortic valve cusps without reduced excursion. No aortic stenosis. No aortic regurgitation. Tricuspid Valve Mild tricuspid regurgitation. Pulmonic Valve Structurally normal pulmonic valve. Pericardium Normal pericardium. No pericardial effusion. Aorta Normal size aortic root and proximal ascending aorta. CONCLUSIONS Left ventricular ejection fraction 55% Mild increased left ventricular wall thickness Trace to mild mitral regurgitation Mild tricuspid regurgitation RVSP 19 Previewed by: Dr. Juliocesar Last DO (Electronically Signed) Final Date: 14 November 2022 13:05
--- NOTE | 2022-11-14 14:02 | P.PN ---
Subjective Progress Note Date: 11/14/22 This is a 67-year-old female patient with a known history of oxygen dependent chronic obstructive pulmonary disease, chronic tobacco dependence, anxiety/depression, bipolar disorder, diabetes mellitus, fibromyalgia, hypertension, hypothyroidism. She was brought into the emergency room earlier this morning with progressive weakness and shortness of breath over the past 2-3 weeks. This morning she was so weak she slumped off the toilet and onto the floor. EMS was called. Denied any injury. Her O2 saturations on arrival in room air was 60%. Chest x-ray revealed borderline heart size and some shifting interstitial and patchy opacities in the right mid and lower lung. CT angiogram revealed constellation of findings including generalized anasarca, mild cardiomegaly, pulmonary artery hypertension, small right pleural effusion, scattered groundglass changes. Correlate for CHF with pulmonary vascular congestion. There is also some scattered nodular entry and bud opacities in the right mid and lower lung. Correlate to exclude infectious bronchiolitis, aspirations or atypical infections. There is a masslike 2.7 cm subpleural opacity in the posterior medial right upper lobe. Possible focal airspace disease/pneumonia. Extensive breathing motion artifact also noted. Difficult for the assessment for pulmonary embolus but no definite embolus seen. White count 16.1. Hemoglobin 13.1. Platelets 434. D-dimer 2.60. Sodium 129. Potassium 5.9. Chloride 97. Bicarb 25. BUN 25. Creatinine 0.73. Glucose 170. AST 40. ALT 33. C-reactive protein 15.5. ProBNP 5810. Urinalysis with moderate leukocytes, high WBCs and mucus. Influenza screen negative. RSV screen negative. COVID-19 screen negative. She is seen today in consultation in the emergency department. She is awake and alert. She is currently on BiPAP 12/6 at 40% FiO2 maintaining O2 saturations in the low 90s. She is in sinus rhythm. She is somewhat computed as to why she's here in the hospital. She denied any difficulty swallowing. She has been short of breath with cough and congestion. No hemoptysis. She's been initiated on ceftriaxone and DuoNeb inhalations along with Symbicort and IV Solu-Medrol. She's also been initiated on IV diuretics. The patient is seen today in 11/14/2022 in follow-up on the regular medical floor. She is currently sitting up at the bedside. Awake and alert in no acute distress. She is utilizing BiPAP 12/6 and 40% FiO2 during the evening. She is currently on 6 L nasal cannula. She's currently afebrile. Hemodynamically stable. Chest x-ray continues to show evidence of moderate diffuse interstitial opacity somewhat chronic in nature with some pulmonary vascular congestion and interstitial edema which has improved. Echocardiogram reveals preserved left ventricular systolic function with ejection fraction of 55%. No significant valvular heart disease. White count 12.3. Hemoglobin 12.0. Platelet count 446. Sodium 133. Potassium 5.9. BUN 26. Creatinine 0.84. Bicarb 26. Glucose 155. Pro-calcitonin 0.25. Legionella screen negative. She is continued on DuoNeb inhalations, Symbicort, IV Solu-Medrol. Antibiotics in the form of ceftriaxone and azithromycin. She remains on IV diuretics. Heparin for DVT prophylaxis. No accurate I&O based on incontinence. Objective - Vital Signs Vital signs: Vital Signs Temp 98.4 F 11/14/22 12:00 Pulse 62 11/14/22 12:00 Resp 18 11/14/22 12:00 BP 113/63 11/14/22 12:00 Pulse Ox 95 11/14/22 12:00 FiO2 40 11/14/22 03:44 Intake & Output 11/13/22 11/14/22 11/14/22 18:59 06:59 18:59 Intake Total 118 Output Total 250 725 Balance -250 -607 Weight 84.096 kg 72 kg Intake: Oral 118 Output: Urine 250 725 Other: Voiding Method Diaper Diaper Diaper External Catheter External Catheter # Voids 1 - Exam GENERAL EXAM: Alert, 67-year-old female, on 6 L nasal cannula alternating with BiPAP 12/6 at 40% FiO2, fairly comfortable in no apparent distress. HEAD: Normocephalic. EYES: Normal reaction of pupils, equal size. NOSE: Clear with pink turbinates. THROAT: No erythema or exudates. NECK: No masses, no JVD. CHEST: No chest wall deformity. LUNGS: Equal air entry with crackles in the posterior bases right greater than left. CVS: S1 and S2 normal with no audible murmur, regular rhythm. ABDOMEN: No hepatosplenomegaly, normal bowel sounds, no guarding or rigidity. SPINE: No scoliosis or deformity SKIN: No rashes CENTRAL NERVOUS SYSTEM: No focal deficits, tone is normal in all 4 extremities. EXTREMITIES: There is no peripheral edema. No clubbing, no cyanosis. Peripheral pulses are intact. - Labs CBC & Chem 7: 11/14/22 07:51 11/14/22 07:51 Labs: Abnormal Lab Results - Last 24 Hours (Table) 11/13/22 11/13/22 11/13/22 Range/Units 10:53 13:27 16:23 WBC (3.8-10.6) k/uL MCHC (31.0-37.0) g/dL Neutrophils # (1.3-7.7) k/uL Sodium (137-145) mmol/L Potassium (3.5-5.1) mmol/L BUN (7-17) mg/dL Glucose (74-99) mg/dL POC Glucose (mg/dL) 126 H (70-110) mg/dL Total Bilirubin (0.2-1.3) mg/dL Alkaline Phosphatase (38-126) U/L Total Protein (6.3-8.2) g/dL Albumin (3.5-5.0) g/dL Procalcitonin 0.25 H (0.02-0.09) ng/mL Urine Protein Trace H (Negative) Ur Leukocyte Esterase Moderate H (Negative) Urine WBC 9 H (0-5) /hpf Amorphous Sediment Rare H (None) /hpf Hyaline Casts 137 H (0-2) /lpf Urine Mucus Rare H (None) /hpf 11/13/22 11/13/22 11/14/22 Range/Units 19:17 20:15 05:55 WBC (3.8-10.6) k/uL MCHC (31.0-37.0) g/dL Neutrophils # (1.3-7.7) k/uL Sodium 130 L (137-145) mmol/L Potassium 5.6 H (3.5-5.1) mmol/L BUN 25 H (7-17) mg/dL Glucose 116 H (74-99) mg/dL POC Glucose (mg/dL) 120 H 145 H (70-110) mg/dL Total Bilirubin (0.2-1.3) mg/dL Alkaline Phosphatase (38-126) U/L Total Protein (6.3-8.2) g/dL Albumin (3.5-5.0) g/dL Procalcitonin (0.02-0.09) ng/mL Urine Protein (Negative) Ur Leukocyte Esterase (Negative) Urine WBC (0-5) /hpf Amorphous Sediment (None) /hpf Hyaline Casts (0-2) /lpf Urine Mucus (None) /hpf 11/14/22 11/14/22 11/14/22 Range/Units 07:51 07:51 11:41 WBC 12.3 H (3.8-10.6) k/uL MCHC 30.7 L (31.0-37.0) g/dL Neutrophils # 10.9 H (1.3-7.7) k/uL Sodium 133 L (137-145) mmol/L Potassium 5.9 H (3.5-5.1) mmol/L BUN 26 H (7-17) mg/dL Glucose 155 H (74-99) mg/dL POC Glucose (mg/dL) 141 H (70-110) mg/dL Total Bilirubin 0.1 L (0.2-1.3) mg/dL Alkaline Phosphatase 134 H (38-126) U/L Total Protein 5.4 L (6.3-8.2) g/dL Albumin 2.9 L (3.5-5.0) g/dL Procalcitonin (0.02-0.09) ng/mL Urine Protein (Negative) Ur Leukocyte Esterase (Negative) Urine WBC (0-5) /hpf Amorphous Sediment (None) /hpf Hyaline Casts (0-2) /lpf Urine Mucus (None) /hpf Assessment and Plan Assessment: Acute hypoxemic respiratory failure secondary to an acute exacerbation of suspected diastolic congestive heart failure along with suspected underlying community-acquired pneumonia. Pro-calcitonin 0.25. Continued on both antibiotics and IV diuretics. Follow up chest x-ray showing improvement. E chocardiogram revealed preserved left ventricular systolic function. Chronic obstructive pulmonary disease his FEV1 value 64% of predicted History of interstitial lung disease Chronic tobacco dependence History of bipolar disorder Diabetes mellitus Fibromyalgia Hypertension Hypothyroidism Plan: The patient was seen and evaluated Echocardiogram, chest x-ray, labs and medications reviewed Continue Symbicort, DuoNeb inhalations, IV Solu-Medrol Continue ceftriaxone and azithromycin Pro-calcitonin 0.25 Continue IV diuretics Accurate intake and output if possible Titrate the FiO2 as tolerated We will continue to follow I have personally seen and examined the patient, performed the documentation and the assessment and plan as written. Number of minutes spent on the visit: 10.
--- NOTE | 2022-11-14 15:04 | P.CRDCN ---
History of Present Illness Consult date: 11/14/22 Consult reason: congestive heart failure, shortness of breath Chief complaint: shortness of breath History of present illness: History of present illness: Patient is a pleasant 67-year-old female with significant past medical history of COPD, diabetes, fibromyalgia, hypertension, pneumonia, and pulmonary embolism who presented with complaints of shortness of breath, weakness, falls. 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 She reports significant family history of her dad having rheumatic fever that led to a valve disease and he at 45. She is a smoker, 2 packs per day, denies any alcohol or drug use. She reports that she has been feeling short of breath for the past 3 weeks and has had a cough for the past 10-14 days. She just feels generally weak and has had a couple falls at home. Denies any dizziness or syncope. Denies any chest pains. Labs reviewed: Troponin 0.033, BNP 5810, WBC 16.1, hemoglobin 13.1, platelets 434, d-dimer elevated 2.6, pro-calcitonin elevated at 0.25, CRP elevated at 15.5, creatinine 0.85. ETA revealed small right pleural effusion, mild cardiomegaly, masslike 2.7 cm piece of the right upper lobe, no definite PE. EKG shows sinus rhythm with left axis deviation. Prior echocardiogram 04/2020 ejection fraction 5560%. She was on BiPAP overnight, however she is on 5 L nasal cannula O2 presently and reports breathing is feeling better. She states she wishes to go home today. REVIEW OF SYSTEMS: No fever or chills. Reports cough and expectoration. Reports shortness of breath. No diaphoresis. Patient denies headache, dizziness, blurred vision, double vision. Patient denies any stomach discomfort. No nausea, vomiting. No hematochezia. No hematemesis. Denies any black stools or blood in his stools. Denies dysuria or hematuria. No muscle weakness or nu mbness. No chest pain or pressure. PHYSICAL EXAMINATION: This is a 67-year-old male in no apparent distress at the time of my examination. HEENT: Head is atraumatic, normocephalic. Pupils are equal, round. Sclerae anicteric. Conjunctivae are clear. Mucous membranes of the mouth are moist. Neck is supple. There is no jugular venous distention. No carotid bruit is heard. CHEST EXAMINATION: Lungs with crackles bilateral bases. No chest wall tenderness is noted on palpation or with deep breathing. HEART EXAMINATION: Heart regular rate and rhythm. S1, S2 heard. No murmurs, gallops or rub. ABDOMEN: Soft, nontender. Bowel sounds are heard. EXTREMITIES: 2+ peripheral pulses with no evidence of peripheral edema and no calf tenderness noted. NEUROLOGIC EXAMINATION: Patient is awake, alert and oriented x3. IMPRESSION AND PLAN: Heart failure, elevated BNP Shortness of breath likely related to a component of heart failure as well as suspected pneumonia Hypertension Diabetes Tobacco abuse PLAN: We will check echocardiogram to evaluate heart function and structure. Continue with diuresis. Antibiotics and steroids as per pulmonary. Smoking cessation was strongly emphasized. Echo shows EF 55%, trace to mild mitral regurgitation, mild tricuspid regurgitation, RVSP 19. Continue IV Lasix for 1 more day. Symptoms most likely lung related with a small component of right- sided heart failure. We will follow. I am dictating on behalf of Dr. Juliocesar Last's history/physical and a ssessment/plan. Past Medical History Past Medical History: Asthma, COPD, Diabetes Mellitus, Fibromyalgia, GERD/Reflux, Hypertension, Osteoarthritis (OA), Pneumonia, Pulmonary Embolus (PE), Skin Disorder, Thyroid Disorder Additional Past Medical History / Comment(s): Cervical disc disease/stenosis, scoliosis, recently having numbness/tingling L side of face/neck, recently saw certified executive chef for L hemidiaphragmatic elevation-pt states she was told this was probably genetic, recently bronchitis and past bronchitis, pt states recent med change (water pill) d/t electrolyte problem/kidney function being affected, pt states she has had pulmonary emboli, past bilateral lower extremity cellulitis, edema lower extremities, IBS, hemorrhoids, benign colon polyps, sinus problems, UTIs, bacteremia/sepsis, cardiac murmur, past L ankle and L wrist fractures. History of Any Multi-Drug Resistant Organisms: None Reported Past Surgical History: Adenoidectomy, Section, Cholecystectomy, Hysterectomy, Tonsillectomy Additional Past Surgical History / Comment(s): EGD, colonoscopies, gastric bypass, surgery for deviated septum Past Anesthesia/Blood Transfusion Reactions: Previous Problems w/ Anesthesia Additional Past Anesthesia/Blood Transfusion Reaction / Comment(s): itching, some kind of problem after gastric bypass-not sure what happened Past Psychological History: Anxiety, Bipolar, Depression Smoking Status: Smoker, current status unknown Past Alcohol Use History: None Reported Past Drug Use History: None Reported - Past Family History Mother Family Medical History: Congestive Heart Failure (CHF), Hypertension Father Additional Family Medical History / Comment(s): Father at the age of 45 yrs d/t having had rheumatic fever as a child and heart valve disease. Medications and Allergies Home Medications Medication Instructions Recorded Confirmed Type Montelukast [Singulair] 10 mg PO HS 12/17/13 11/13/22 History busPIRone HCL [Buspar] 30 mg PO BID 12/17/13 11/13/22 History Albuterol Sulfate [Proair Hfa] 2 puff INHALATION RT-QID PRN 05/07/18 11/13/22 History Levothyroxine Sodium [Synthroid] 150 mcg PO DAILY 03/29/20 11/13/22 History lisinopriL 20 mg PO DAILY 10/05/20 11/13/22 History Budesonide/Formoterol Fumarate 2 puff INHALATION RT-BID 06/12/21 11/13/22 History [Symbicort 160-4.5 Mcg Inhaler] Famotidine [Pepcid] 20 mg PO BID 09/03/21 11/13/22 History amLODIPine [Norvasc] 5 mg PO DAILY 09/03/21 11/13/22 History lamoTRIgine [LaMICtal] 100 mg PO BID 09/03/21 11/13/22 History Divalproex ER [Depakote ER] 250 mg PO DAILY 10/07/21 11/13/22 History OLANZapine [ZyPREXA] 10 mg PO HS 10/07/21 11/13/22 History Tamsulosin [Flomax] 0.4 mg PO DAILY 10/26/21 11/13/22 History ALPRAZolam [Xanax] 0.5 mg PO DAILY PRN 11/13/22 11/13/22 History Citalopram Hydrobromide [CeleXA] 10 mg PO DAILY 11/13/22 11/13/22 History Docusate [Colace] 100 mg PO BID PRN 11/13/22 11/13/22 History Ferrous Sulfate [Feosol] 325 mg PO DAILY 11/13/22 11/13/22 History Ipratropium-Albuterol Nebulize 3 ml INHALATION RT-QID PRN 11/13/22 11/13/22 History [Duoneb 0.5 mg-3 mg/3 ml Soln] Metoprolol Tartrate [Lopressor] 25 mg PO BID 11/13/22 11/13/22 History Potassium Chloride ER [K-Dur 10] 10 meq PO DAILY 11/13/22 11/13/22 History Thiamine [Vitamin B-1] 100 mg PO DAILY 11/13/22 11/13/22 History Allergies Allergy/AdvReac Type Severity Reaction Status Date / Time codeine Allergy Unknown Verified 11/13/22 11:37 Childhood Penicillins Allergy Rash/Hives Verified 11/13/22 11:37 Sulfa (Sulfonamide Allergy Rash/Hives Verified 11/13/22 11:37 Antibiotics) Physical Exam Vitals: Vital Signs Temp Pulse Pulse Resp BP BP Pulse Ox 11/14/22 09:17 78 11/14/22 09:10 95 11/14/22 09:06 74 11/14/22 08:00 98.1 F 78 18 117/56 94 L 11/14/22 03:44 98.3 F 65 18 111/59 95 11/14/22 03:19 11/14/22 00:00 96.8 F L 53 L 14 98/53 96 11/13/22 20:45 72 91 L 11/13/22 20:24 76 11/13/22 20:00 98.1 F 64 14 125/57 90 L 11/13/22 16:05 63 21 11/13/22 15:45 97.8 F 63 19 104/80 92 L 11/13/22 15:00 68 18 116/60 96 11/13/22 13:48 11/13/22 12:43 90 L 11/13/22 12:04 11/13/22 10:58 11/13/22 10:54 11/13/22 10:43 97.3 F L 74 28 H 139/67 98 FiO2 11/14/22 09:17 11/14/22 09:10 11/14/22 09:06 11/14/22 08:00 11/14/22 03:44 40 11/14/22 03:19 40 11/14/22 00:00 11/13/22 20:45 40 11/13/22 20:24 11/13/22 20:00 11/13/22 16:05 11/13/22 15:45 11/13/22 15:00 11/13/22 13:48 40 11/13/22 12:43 11/13/22 12:04 40 11/13/22 10:58 40 11/13/22 10:54 50 11/13/22 10:43 Intake and Output 11/13/22 11/14/22 11/14/22 22:59 06:59 14:59 Intake Total 118 Output Total 250 Balance -250 118 Intake: Oral 118 Output: Urine 250 Other: Voiding Method Diaper Diaper External Catheter External Catheter # Voids 1 1 Weight 84.096 kg 72 kg Results 11/14/22 07:51 11/14/22 07:51 Cardiac Enzymes 11/13/22 11/13/22 11/14/22 Range/Units 10:53 10:53 07:51 AST 40 H 22 (14-36) U/L Troponin I 0.033 (0.000-0.034) ng/mL Coagulation 11/13/22 Range/Units 10:53 PT 10.4 (9.0-12.0) sec APTT 25.5 (22.0-30.0) sec CBC 11/13/22 11/14/22 Range/Units 10:53 07:51 WBC 16.1 H 12.3 H (3.8-10.6) k/uL RBC 4.41 4.14 (3.80-5.40) m/uL Hgb 13.1 12.0 (11.4-16.0) gm/dL Hct 41.1 39.1 (34.0-46.0) % Plt Count 434 446 (150-450) k/uL Comprehensive Metabolic Panel 11/13/22 11/13/22 11/14/22 Range/Units 10:53 19:17 07:51 Sodium 129 L 130 L 133 L (137-145) mmol/L Potassium 5.9 H 5.6 H 5.9 H (3.5-5.1) mmol/L Chloride 97 L 99 99 (98-107) mmol/L Carbon Dioxide 25 26 26 (22-30) mmol/L BUN 25 H 25 H 26 H (7-17) mg/dL Creatinine 0.73 0.85 0.84 (0.52-1.04) mg/dL Glucose 170 H 116 H 155 H (74-99) mg/dL Calcium 9.7 9.3 9.3 (8.4-10.2) mg/dL AST 40 H 22 (14-36) U/L ALT 33 27 (4-34) U/L Alkaline Phosphatase 159 H 134 H (38-126) U/L Total Protein 6.1 L 5.4 L (6.3-8.2) g/dL Albumin 3.4 L 2.9 L (3.5-5.0) g/dL Current Medications Generic Name Dose Route Start Last Admin Trade Name Freq PRN Reason Stop Dose Admin Acetaminophen 650 mg 11/13/22 13:20 Acetaminophen Tab 325 Mg Tab PO Q6HR PRN Mild Pain or Fever > 100.5 Albuterol Sulfate 2 puff 11/13/22 14:43 Albuterol Hfa Inhaler INHALATION RT-QID PRN Shortness Of Breath Albuterol/Ipratropium 3 ml 11/13/22 14:43 11/14/22 09:07 Ipratropium-Albuterol 3 Ml Neb INHALATION 3 ml RT-QID PRN Administration Shortness Of Breath Alprazolam 0.5 mg 11/13/22 14:43 Alprazolam 0.5 Mg Tab PO DAILY PRN Anxiety Amlodipine Besylate 5 mg 11/14/22 09:00 11/14/22 08:51 Amlodipine 5 Mg Tab PO 5 mg DAILY JEIMY Administration Azithromycin 500 mg 11/14/22 09:00 11/14/22 08:52 Azithromycin 500 Mg Tab PO 11/15/22 09:01 500 mg DAILY JEIMY Administration Protocol Budesonide/Formoterol Fumarate 2 puff 11/13/22 20:00 11/14/22 09:06 Symbicort 160-4.5 Mcg Inhaler INHALATION 2 puff RT-BID JEIMY Administration Buspirone HCl 30 mg 11/13/22 21:00 11/14/22 08:52 Buspirone Hcl 10 Mg Tab PO 30 mg BID JEIMY Administration Citalopram Hydrobromide 10 mg 11/14/22 09:00 11/14/22 08:51 Citalopram Hydrobromide 10 Mg Tab PO 10 mg DAILY JEIMY Administration Divalproex Sodium 250 mg 11/14/22 09:00 11/14/22 08:52 Divalproex Er 250 Mg Tab.Er.24h PO 250 mg DAILY JEIMY Administration Docusate Sodium 100 mg 11/13/22 14:43 Docusate 100 Mg Cap PO BID PRN Constipation Famotidine 20 mg 11/13/22 21:00 11/14/22 08:52 Famotidine 20 Mg Tab PO 20 mg BID JEIMY Administration Ferrous Sulfate 325 mg 11/14/22 09:00 11/14/22 08:52 Ferrous Sulfate 325 Mg Tab PO 325 mg DAILY JEIMY Administration Furosemide 40 mg 11/13/22 21:00 11/14/22 08:51 Furosemide 10 Mg/Ml 4 Ml Vial IV 40 mg Q12HR JEIMY Administration Heparin Sodium (Porcine) 5,000 unit 11/13/22 21:00 11/14/22 08:52 Heparin Sodium,Porcine/Pf 5,000 Unit/0.5 Ml Syringe SQ 5,000 unit Q12HR JEIMY Administration Ceftriaxone Sodium 2 gm/ 50 mls @ 100 mls/hr 11/14/22 09:00 11/14/22 08:51 Sodium Chloride IVPB 11/17/22 09:29 100 mls/hr Q24HR JEIMY Administration Protocol Ketorolac Tromethamine 15 mg 11/13/22 13:20 11/13/22 14:42 Ketorolac 15 Mg/Ml 1 Ml Vial IVP 11/16/22 13:21 15 mg Q6HR PRN Administration Moderate Pain (Scale 4 to 6) Lamotrigine 100 mg 11/13/22 21:00 11/14/22 08:51 Lamotrigine 100 Mg Tab PO 100 mg BID JEIMY Administration Levothyroxine Sodium 150 mcg 11/14/22 06:30 11/14/22 06:26 Levothyroxine 75 Mcg Tab PO 150 mcg DAILY@0630 JEIMY Administration Lisinopril 20 mg 11/14/22 09:00 11/14/22 08:52 Lisinopril 20 Mg Tab PO 20 mg DAILY JEIMY Administration Methylprednisolone Sodium Succinate 40 mg 11/13/22 16:00 11/14/22 08:51 Methylprednisolone Sod Succi 40 Mg/Ml 1 Ml Vial IV 40 mg Q8HR JEIMY Administration Metoprolol Tartrate 25 mg 11/13/22 21:00 11/14/22 08:51 Metoprolol Tartrate 25 Mg Tab PO 25 mg BID JEIMY Administration Miscellaneous Information 1 each 11/13/22 13:11 Pneumonia Protocol Utilized 1 Each Misc PO ONCE PRN Per Protocol Montelukast Sodium 10 mg 11/13/22 21:00 11/13/22 21:08 Montelukast 10 Mg Tab PO 10 mg HS JEIMY Administration Naloxone HCl 0.2 mg 11/13/22 13:20 Naloxone 0.4 Mg/Ml 1 Ml Vial IV Q2M PRN Opioid Reversal Olanzapine 10 mg 11/13/22 21:00 11/13/22 21:09 Olanzapine 10 Mg Tab PO 10 mg HS JEIMY Administration Potassium Chloride 10 meq 11/14/22 09:00 11/14/22 08:52 Potassium Chloride Er 10 Meq Tab.Er.Prt PO 10 meq DAILY JEIMY Administration Tamsulosin HCl 0.4 mg 11/14/22 09:00 11/14/22 08:52 Tamsulosin 0.4 Mg Cap.Er.24h PO 0.4 mg DAILY JEIMY Administration Thiamine HCl 100 mg 11/14/22 09:00 11/14/22 08:52 Thiamine 100 Mg Tab PO 100 mg DAILY JEIMY Administration Intake and Output 11/13/22 11/14/22 11/14/22 22:59 06:59 14:59 Intake Total 118 Output Total 250 Balance -250 118 Intake: Oral 118 Output: Urine 250 Other: Voiding Method Diaper Diaper External Catheter External Catheter # Voids 1 1 Weight 84.096 kg 72 kg 11/14/22 07:51 11/14/22 07:51
[2022-11-14 16:45] LABS: Glucose,Whole Blood 158 mg/dL (70-110)
[2022-11-14] MEDS ORDERED: SODIUM BICARB 8.4% 50 ML SYR (1 MEQ/ML) IV STA (19:21)
[2022-11-14] MEDS ORDERED: CALCIUM GLUCONATE IN NACL 1 GM in SALINE 1 100ML.BAG IVPB ONE (19:22)
--- NOTE | 2022-11-14 19:33 | P.PN ---
Subjective This is a pleasant 67 years old female who was present and because of worsening dyspnea and weakness over 2 weeks, patient also fell at home on the toilet without losing consciousness. Patient had extensive workup and his been evaluated by cardiology and pulmonary services. Patient found to have both COPD and CHF as well as pneumonia. CTA of the chest showing right hilar and paratracheal lymphadenopathy with masslike consolidation about 2.7 cm, pulmonary team believe this masslike is mostly pneumonia. Patient informed about this mass and the need to do a follow- up upon discharge, risks including but not limited to cancer are explained for her and she verbalized understanding and acceptance. She's continued to be covered with antibiotic Zithromax ceftriaxone, IV Lasix 40 mg twice daily and Solu-Medrol 40 mg She's requiring BiPAP overnight and she is saturating 94% on 5 L of oxygen via nasal cannula. At home she uses 4 L. Leukocytosis is improving Potassium still have 5.9. Therefore we going to discontinue her oral potassium dose of 10 mEq. Also will give calcium with sodium bicarb and albuterol. If her potassium remains elevated tomorrow then we might consider decreasing the dose or stopping her lisinopril 20 mg Consult PT/OT Objective - Vital Signs Vital signs: Vital Signs Temp 98.4 F 11/14/22 12:00 Pulse 62 11/14/22 12:00 Resp 18 11/14/22 12:00 BP 113/63 11/14/22 12:00 Pulse Ox 95 11/14/22 12:00 FiO2 40 11/14/22 03:44 Intake & Output 11/13/22 11/14/22 11/14/22 18:59 06:59 18:59 Intake Total 118 Output Total 250 725 Balance -250 -607 Weight 84.096 kg 72 kg Intake: Oral 118 Output: Urine 250 725 Other: Voiding Method Diaper Diaper Diaper External Catheter External Catheter # Voids 1 - Exam -GENERAL: The patient is alert and oriented x3, not in any acute distress. Well developed, well nourished. HEENT: Pupils are round and equally reacting to light. EOMI. No scleral icterus. No conjunctival pallor. Normocephalic, atraumatic. No pharyngeal erythema. No thyromegaly. CARDIOVASCULAR: S1 and S2 present. No murmurs, rubs, or gallops. -PULMONARY: Chest is clear to auscultation, bilateral scattered wheezing or crepitation ABDOMEN: Soft, nontender, nondistended, normoactive bowel sounds. No palpable organomegaly. MUSCULOSKELETAL: No joint swelling or deformity. EXTREMITIES: No cyanosis, clubbing, or pedal edema. NEUROLOGICAL: Gross neurological examination did not reveal any focal deficits. SKIN: No rashes. no petechiae. - Labs CBC & Chem 7: 11/14/22 07:51 11/14/22 07:51 Labs: Abnormal Lab Results - Last 24 Hours (Table) 11/13/22 11/13/22 11/13/22 Range/Units 10:53 10:53 13:27 WBC (3.8-10.6) k/uL MCHC (31.0-37.0) g/dL Neutrophils # (1.3-7.7) k/uL Sodium (137-145) mmol/L Potassium (3.5-5.1) mmol/L BUN (7-17) mg/dL Glucose (74-99) mg/dL POC Glucose (mg/dL) (70-110) mg/dL Total Bilirubin (0.2-1.3) mg/dL Alkaline Phosphatase (38-126) U/L C-Reactive Protein 15.5 H (<1.0) mg/dL Total Protein (6.3-8.2) g/dL Albumin (3.5-5.0) g/dL Procalcitonin 0.25 H (0.02-0.09) ng/mL Urine Protein Trace H (Negative) Ur Leukocyte Esterase Moderate H (Negative) Urine WBC 9 H (0-5) /hpf Amorphous Sediment Rare H (None) /hpf Hyaline Casts 137 H (0-2) /lpf Urine Mucus Rare H (None) /hpf 11/13/22 11/13/22 11/13/22 Range/Units 16:23 19:17 20:15 WBC (3.8-10.6) k/uL MCHC (31.0-37.0) g/dL Neutrophils # (1.3-7.7) k/uL Sodium 130 L (137-145) mmol/L Potassium 5.6 H (3.5-5.1) mmol/L BUN 25 H (7-17) mg/dL Glucose 116 H (74-99) mg/dL POC Glucose (mg/dL) 126 H 120 H (70-110) mg/dL Total Bilirubin (0.2-1.3) mg/dL Alkaline Phosphatase (38-126) U/L C-Reactive Protein (<1.0) mg/dL Total Protein (6.3-8.2) g/dL Albumin (3.5-5.0) g/dL Procalcitonin (0.02-0.09) ng/mL Urine Protein (Negative) Ur Leukocyte Esterase (Negative) Urine WBC (0-5) /hpf Amorphous Sediment (None) /hpf Hyaline Casts (0-2) /lpf Urine Mucus (None) /hpf 11/14/22 11/14/22 11/14/22 Range/Units 05:55 07:51 07:51 WBC 12.3 H (3.8-10.6) k/uL MCHC 30.7 L (31.0-37.0) g/dL Neutrophils # 10.9 H (1.3-7.7) k/uL Sodium 133 L (137-145) mmol/L Potassium 5.9 H (3.5-5.1) mmol/L BUN 26 H (7-17) mg/dL Glucose 155 H (74-99) mg/dL POC Glucose (mg/dL) 145 H (70-110) mg/dL Total Bilirubin 0.1 L (0.2-1.3) mg/dL Alkaline Phosphatase 134 H (38-126) U/L C-Reactive Protein (<1.0) mg/dL Total Protein 5.4 L (6.3-8.2) g/dL Albumin 2.9 L (3.5-5.0) g/dL Procalcitonin (0.02-0.09) ng/mL Urine Protein (Negative) Ur Leukocyte Esterase (Negative) Urine WBC (0-5) /hpf Amorphous Sediment (None) /hpf Hyaline Casts (0-2) /lpf Urine Mucus (None) /hpf 11/14/22 Range/Units 11:41 WBC (3.8-10.6) k/uL MCHC (31.0-37.0) g/dL Neutrophils # (1.3-7.7) k/uL Sodium (137-145) mmol/L Potassium (3.5-5.1) mmol/L BUN (7-17) mg/dL Glucose (74-99) mg/dL POC Glucose (mg/dL) 141 H (70-110) mg/dL Total Bilirubin (0.2-1.3) mg/dL Alkaline Phosphatase (38-126) U/L C-Reactive Protein (<1.0) mg/dL Total Protein (6.3-8.2) g/dL Albumin (3.5-5.0) g/dL Procalcitonin (0.02-0.09) ng/mL Urine Protein (Negative) Ur Leukocyte Esterase (Negative) Urine WBC (0-5) /hpf Amorphous Sediment (None) /hpf Hyaline Casts (0-2) /lpf Urine Mucus (None) /hpf Assessment and Plan Assessment: -Acute diastolic CHF with ejection fraction 55% -Pneumonia with masslike consolidation 2.7 cm. With paratracheal and hilar LAP, Patient informed, cannot exclude malignancy, pt will need close outpatient foll ow-up with pulmonary service upon discharge -Acute COPD exacerbation -Acute on chronic hypoxic respiratory failure -Hyperkalemia secondary to medication effect.. Potassium replacement therapy -Obesity with BMI of 29. -Mild hypernatremia -Right thyroid nodule was 2.3 cm currently 2.4, needs surveillance, patient informed_cancer also explained for her. Instructed to follow up with product architect as an outpatient and contact information -for Dr. Chairez is provided for Plan: Continue with Medrol 40 mg Continue with Zithromax and ceftriaxone Continue with Lasix 40 mg Patient will be require close outpatient follow-up with pulmonary to ensure resolution of pneumonia and to exclude other possibilities like tumors, patient informed and she agrees Patient also require follow-up as an outpatient with product architect for her thyroid nodule for surveillance, patient informed and agrees. Risk of cancer explained Cartilage and pulmonary service on consult Labs and medication were reviewed.. Continue same treatment. Continue with symptomatic treatment. Resume home medication. Monitor labs and vitals. DVT and GI prophylaxis. Further recommendations as per clinical course of the patient DVT prophylaxis: Subcutaneous heparin GI Prophylaxis: Pepcid PT/OT: Pending Prognosis is guarded
[2022-11-14] MEDS: MONTELUKAST 10 MG TAB PO SCH (20:22)
[2022-11-14] MEDS: OLANZapine 10 MG TAB PO SCH (20:23)
[2022-11-14 21:46] LABS: Glucose,Whole Blood 166 mg/dL (70-110)
[2022-11-15] MEDS: methylPREDNISolone SOD SUCCI 40 MG/ML 1 ML VIAL IV SCH ×4 (00:26→23:39)
[2022-11-15] MEDS: KETOROLAC 15 MG/ML 1 ML VIAL IVP PRN (03:27)
[2022-11-15] MEDS: LEVOTHYROXINE 75 MCG TAB PO SCH (06:18)
[2022-11-15 06:23] LABS: Glucose,Whole Blood 111 mg/dL (70-110)
[2022-11-15] MEDS: THIAMINE 100 MG TAB PO SCH (08:23)
[2022-11-15] MEDS: FUROSEMIDE 10 MG/ML 4 ML VIAL IV SCH ×2 (08:23→20:07)
[2022-11-15] MEDS: FAMOTIDINE 20 MG TAB PO SCH (08:23)
[2022-11-15] MEDS: busPIRone HCl 10 MG TAB PO SCH ×2 (08:23→20:07)
[2022-11-15] MEDS: AZITHROMYCIN 500 MG TAB PO SCH (08:23)
[2022-11-15] MEDS: DIVALPROEX ER 250 MG TAB.ER.24H PO SCH (08:23)
[2022-11-15] MEDS: lamoTRIgine 100 MG TAB PO SCH ×2 (08:23→20:08)
[2022-11-15] MEDS: METOPROLOL TARTRATE 25 MG TAB PO SCH ×2 (08:23→20:08)
[2022-11-15] MEDS: TAMSULOSIN 0.4 MG CAP.ER.24H PO SCH (08:24)
[2022-11-15] MEDS: HEPARIN SODIUM,PORCINE/PF 5,000 UNIT/0.5 ML SYRINGE SQ SCH ×2 (08:24→20:08)
[2022-11-15] MEDS: FERROUS SULFATE 325 MG TAB PO SCH (08:24)
[2022-11-15] MEDS: lisinopriL 20 MG TAB PO SCH (08:24)
[2022-11-15] MEDS: CITALOPRAM HYDROBROMIDE 10 MG TAB PO SCH (08:24)
[2022-11-15] MEDS: amLODIPine 5 MG TAB PO SCH (08:24)
[2022-11-15 08:57] LABS: Calcium 9.7 mg/dL (8.4-10.2); Potassium 5.8 mmol/L (3.5-5.1)
[2022-11-15 09:00] LABS: Basophils # (A) 0.1 k/uL (0-0.2); Basophils % (A) 0 %; Eosinophils % (A) 0 %; HCT 39.7 % (34.0-46.0); HGB 12.2 gm/dL (11.4-16.0); Lymphocytes # (A) 2.2 k/uL (1.0-4.8); Lymphocytes % (A) 15 %; MCH 28.6 pg (25.0-35.0); MCHC 30.8 g/dL (31.0-37.0); Mean Platelet Volume 7.5; Monocytes # (A) 0.7 k/uL (0-1.0); Monocytes % (A) 5 %; Neutrophils # (A) 10.9 k/uL (1.3-7.7); Neutrophils % (A) 76 %; Platelet Count 494 k/uL (150-450); RBC 4.28 m/uL (3.80-5.40); RDW 13.5 % (11.5-15.5); WBC 14.3 k/uL (3.8-10.6)
[2022-11-15] MEDS: SYMBICORT 160-4.5 MCG INHALER INHALATION SCH ×2 (09:36→21:40)
[2022-11-15 11:45] LABS: Glucose,Whole Blood 122 mg/dL (70-110)
[2022-11-15] MEDS: IPRATROPIUM-ALBUTEROL 3 ML NEB INHALATION PRN (12:02)
--- NOTE | 2022-11-15 12:12 | P.PN ---
Subjective Progress Note Date: 11/15/22 Principal diagnosis: Acute hypoxic failure secondary to acute exacerbation of diastolic congestive heart failure and suspect acute community acquired pneumonia with elevated pro calcitonin level This is a 67-year-old female patient with a known history of oxygen dependent chronic obstructive pulmonary disease, chronic tobacco dependence, anxiety/depression, bipolar disorder, diabetes mellitus, fibromyalgia, hypertension, hypothyroidism. She was brought into the emergency room earlier this morning with progressive weakness and shortness of breath over the past 2-3 weeks. This morning she was so weak she slumped off the toilet and onto the floor. EMS was called. Denied any injury. Her O2 saturations on arrival in room air was 60%. Chest x-ray revealed borderline heart size and some shifting interstitial and patchy opacities in the right mid and lower lung. CT angiogram revealed constellation of findings including generalized anasarca, mild cardiomegaly, pulmonary artery hypertension, small right pleural effusion, scattered groundglass changes. Correlate for CHF with pulmonary vascular congestion. There is also some scattered nodular entry and bud opacities in the right mid and lower lung. Correlate to exclude infectious bronchiolitis, aspirations or atypical infections. There is a masslike 2.7 cm subpleural opacity in the posterior medial right upper lobe. Possible focal airspace disease/pneumonia. Extensive breathing motion artifact also noted. Difficult for the assessment for pulmonary embolus but no definite embolus seen. White count 16.1. Hemoglobin 13.1. Platelets 434. D-dimer 2.60. Sodium 129. Potassium 5.9. Chloride 97. Bicarb 25. BUN 25. Creatinine 0.73. Glucose 170. AST 40. ALT 33. C-reactive protein 15.5. ProBNP 5810. Urinalysis with moderate leukocytes, high WBCs and mucus. Influenza screen negative. RSV sc reen negative. COVID-19 screen negative. She is seen today in consultation in the emergency department. She is awake and alert. She is currently on BiPAP 12/6 at 40% FiO2 maintaining O2 saturations in the low 90s. She is in sinus rhythm. She is somewhat computed as to why she's here in the hospital. She denied any difficulty swallowing. She has been short of breath with cough and congestion. No hemoptysis. She's been initiated on ceftriaxone and DuoNeb inhalations along with Symbicort and IV Solu-Medrol. She's also been initiated on IV diuretics. The patient is seen today in 11/14/2022 in follow-up on the regular medical floor. She is currently sitting up at the bedside. Awake and alert in no acute distress. She is utilizing BiPAP / and 40% FiO2 during the evening. She is currently on 6 L nasal cannula. She's currently afebrile. Hemodynamically stable. Chest x-ray continues to show evidence of moderate diffuse interstitial opacity somewhat chronic in nature with some pulmonary vascular congestion and interstitial edema which has improved. Echocardiogram reveals preserved left ventricular systolic function with ejection fraction of 55%. No significant valvular heart disease. White count 12.3. Hemoglobin 12.0. Platelet count 446. Sodium 133. Potassium 5.9. BUN 26. Creatinine 0.84. Bicarb 26. Glucose 155. Pro-calcitonin 0.25. Legionella screen negative. She is continued on DuoNeb inhalations, Symbicort, IV Solu-Medrol. Antibiotics in the form of ceftriaxone and azithromycin. She remains on IV diuretics. Heparin for DVT prophylaxis. No accurate I&O based on incontinence. Reevaluated today on 11/15/2022, patient is feeling better, breathing a lot easier, less cough and less wheezing less shortness of breath. Patient remains on 6 L nasal cannula, O2 saturations ranging between 93 up to 100%. She is afebrile with a temp of 98.1, she is hemodynamically stable continues to have a bit of leukocytosis with WBC count of 14.3 hemoglobin is 12.2. Her potassium is a bit elevated at 5.8, BUN is 37 creatinine 1.09. Remains on bronchodilators, remains on Lasix at 40 mg twice a day, patient is also on Rocephin. Receiving methylprednisolone for her COPD. And overall the patient is doing better compared to her baseline on admission Objective - Vital Signs Vital signs: Vital Signs Temp 98.1 F 11/15/22 08:00 Pulse 60 11/15/22 12:02 Resp 20 11/15/22 08:00 BP 129/59 11/15/22 08:00 Pulse Ox 100 11/15/22 09:37 FiO2 40 11/14/22 03:44 Intake & Output 11/14/22 11/15/22 11/15/22 18:59 06:59 18:59 Intake Total 118 Output Total 725 1050 Balance -607 -1050 Weight 72 kg Intake: Oral 118 Output: Urine 725 1050 Other: Voiding Method Diaper Diaper Diaper External Catheter External Catheter External Catheter - Exam GENERAL EXAM: Alert, 67-year-old female, on 6 L nasal cannula alternating with BiPAP 12/6 at 40% FiO2, fairly comfortable in no apparent distress. HEAD: Normocephalic. Atraumatic ENT: PERRLA, EOMI, nonicteric no neck masses no JVD no stridor. CHEST: No chest wall deformity. LUNGS: Crackles and rhonchi noted bilaterally. CVS: S1 and S2 normal with no audible murmur, regular rhythm. ABDOMEN: No hepatosplenomegaly, normal bowel sounds, no guarding or rigidity. SKIN: No rashes CENTRAL NERVOUS SYSTEM: Alert and oriented 3, no gross focal deficit Psychiatric: Normal mood affect and normal mental status examination. EXTREMITIES: No clubbing edema or cyanosis. - Labs CBC & Chem 7: 11/15/22 08:09 11/15/22 08:09 Labs: Abnormal Lab Results - Last 24 Hours (Table) 11/14/22 11/14/22 11/15/22 Range/Units 16:43 21:18 06:21 WBC (3.8-10.6) k/uL MCHC (31.0-37.0) g/dL Plt Count (150-450) k/uL Neutrophils # (1.3-7.7) k/uL Sodium (137-145) mmol/L Potassium (3.5-5.1) mmol/L Chloride (98-107) mmol/L BUN (7-17) mg/dL Creatinine (0.52-1.04) mg/dL POC Glucose (mg/dL) 158 H 166 H 111 H (70-110) mg/dL 11/15/22 11/15/22 11/15/22 Range/Units 08:09 08:09 11:44 WBC 14.3 H (3.8-10.6) k/uL MCHC 30.8 L (31.0-37.0) g/dL Plt Count 494 H (150-450) k/uL Neutrophils # 10.9 H (1.3-7.7) k/uL Sodium 132 L (137-145) mmol/L Potassium 5.8 H (3.5-5.1) mmol/L Chloride 97 L (98-107) mmol/L BUN 37 H (7-17) mg/dL Creatinine 1.09 H (0.52-1.04) mg/dL POC Glucose (mg/dL) 122 H (70-110) mg/dL Microbiology - Last 24 Hours (Table) 11/13/22 14:00 Blood Culture - Preliminary Blood 11/13/22 13:40 Blood Culture - Preliminary Blood Assessment and Plan Assessment: Impression: Acute hypoxemic respiratory failure secondary to an acute exacerbation of suspected diastolic congestive heart failure along with suspected underlying community-acquired pneumonia. Pro-calcitonin 0.25. Continued on both antibiotics and IV diuretics. Follow up chest x-ray showing improvement. Echocardiogram revealed preserved left ventricular systolic function. Chronic obstructive pulmonary disease his FEV1 value 64% of predicted History of interstitial lung disease Chronic tobacco dependence History of bipolar disorder Diabetes mellitus Fibromyalgia Hypertension Hypothyroidism Plan: Continue antibiotics Continue bronchodilators Continue IV Solu-Medrol Continue diuretics Repeat chest x-ray in a.m. Consider discharge planning in the next 24-48 hours Pro-calcitonin 0.25 Titrate the FiO2 as tolerated We will continue to follow Time with Patient: Less than 30
--- NOTE | 2022-11-15 13:48 | P.PN ---
Subjective Progress Note Date: 11/15/22 Patient is a pleasant 67-year-old female with significant past medical history of COPD, diabetes, fibromyalgia, hypertension, pneumonia, and pulmonary embolism who presented with complaints of shortness of breath, weakness, falls. 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 She reports significant family history of her dad having rheumatic fever that led to a valve disease and he at 45. She is a smoker, 2 packs per day, denies any alcohol or drug use. She reports that she has been feeling short of breath for the past 3 weeks and has had a cough for the past 10-14 days. She just feels generally weak and has had a couple falls at home. Denies any dizziness or syncope. Denies any chest pains. Labs reviewed: Troponin 0.033, BNP 5810, WBC 16.1, hemoglobin 13.1, platelets 434, d-dimer elevated 2.6, pro-calcitonin elevated at 0.25, CRP elevated at 15.5, creatinine 0.85. ETA revealed small right pleural effusion, mild cardiomegaly, masslike 2.7 cm piece of the right upper lobe, no definite PE. EKG shows sinus rhythm with left axis deviation. Prior echocardiogram 04/2020 ejection fraction 5560%. She was on BiPAP overnight, however she is on 5 L nasal cannula O2 presently and reports breathing is feeling better. She states she wishes to go home today. Echo shows EF 55%, trace to mild mitral regurgitation, mild tricuspid regurgitation, RVSP 19. / She reports doing well, denies any chest pain. States she wants to go home. PHYSICAL EXAMINATION: This is a 67-year-old male in no apparent distress at the time of my examination. HEENT: Head is atraumatic, normocephalic. Pupils are equal, round. Sclerae anicteric. Conjunctivae are clear. Mucous membranes of the mouth are moist. Neck is supple. There is no jugular venous distention. No carotid bruit is heard. CHEST EXAMINATION: Lungs with crackles bilateral bases. No chest wall tenderness is noted on palpation or with deep breathing. HEART EXAMINATION: Heart regular rate and rhythm. S1, S2 heard. No murmurs, gallops or rub. ABDOMEN: Soft, nontender. Bowel sounds are heard. EXTREMITIES: 2+ peripheral pulses with no evidence of peripheral edema and no calf tenderness noted. NEUROLOGIC EXAMINATION: Patient is awake, alert and oriented x3. IMPRESSION AND PLAN: Heart failure, elevated BNP Shortness of breath likely related to a component of heart failure as well as suspected pneumonia Hypertension Diabetes Tobacco abuse PLAN: Continue with diuresis. Antibiotics and steroids as per pulmonary. Sm oking cessation was strongly emphasized. Continue IV Lasix. Symptoms most likely lung related with a small component of right-sided heart failure. We will follow. I am dictating on behalf of Dr. Juliocesar Last's history/physical and assessment/plan. Objective - Vital Signs Vital signs: Vital Signs Temp 98.1 F 11/15/22 08:00 Pulse 68 11/15/22 08:00 Resp 20 11/15/22 08:00 BP 129/59 11/15/22 08:00 Pulse Ox 100 11/15/22 09:37 FiO2 40 11/14/22 03:44 Intake & Output 11/14/22 11/15/22 11/15/22 18:59 06:59 18:59 Intake Total 118 Output Total 725 1050 Balance -607 -1050 Weight 72 kg Intake: Oral 118 Output: Urine 725 1050 Other: Voiding Method Diaper Diaper Diaper External Catheter External Catheter External Catheter - Labs CBC & Chem 7: 11/15/22 08:09 11/15/22 08:09 Labs: Abnormal Lab Results - Last 24 Hours (Table) 11/14/22 11/14/22 11/14/22 Range/Units 11:41 16:43 21:18 WBC (3.8-10.6) k/uL MCHC (31.0-37.0) g/dL Plt Count (150-450) k/uL Neutrophils # (1.3-7.7) k/uL Sodium (137-145) mmol/L Potassium (3.5-5.1) mmol/L Chloride (98-107) mmol/L BUN (7-17) mg/dL Creatinine (0.52-1.04) mg/dL POC Glucose (mg/dL) 141 H 158 H 166 H (70-110) mg/dL 11/15/22 11/15/22 11/15/22 Range/Units 06:21 08:09 08:09 WBC 14.3 H (3.8-10.6) k/uL MCHC 30.8 L (31.0-37.0) g/dL Plt Count 494 H (150-450) k/uL Neutrophils # 10.9 H (1.3-7.7) k/uL Sodium 132 L (137-145) mmol/L Potassium 5.8 H (3.5-5.1) mmol/L Chloride 97 L (98-107) mmol/L BUN 37 H (7-17) mg/dL Creatinine 1.09 H (0.52-1.04) mg/dL POC Glucose (mg/dL) 111 H (70-110) mg/dL Microbiology - Last 24 Hours (Table) 11/13/22 14:00 Blood Culture - Preliminary Blood 11/13/22 13:40 Blood Culture - Preliminary Blood
--- NOTE | 2022-11-15 14:46 | P.PN ---
Subjective This is a pleasant 67 years old female who was present and because of worsening dyspnea and weakness over 2 weeks, patient also fell at home on the toilet without losing consciousness. Patient had extensive workup and his been evaluated by cardiology and pulmonary services. Patient found to have both COPD and CHF as well as pneumonia. CTA of the chest showing right hilar and paratracheal lymphadenopathy with masslike consolidation about 2.7 cm, pulmonary team believe this masslike is mostly pneumonia. Patient informed about this mass and the need to do a follow- up upon discharge, risks including but not limited to cancer are explained for her and she verbalized understanding and acceptance. She's continued to be covered with antibiotic Zithromax ceftriaxone, IV Lasix 40 mg twice daily and Solu-Medrol 40 mg She's requiring BiPAP overnight and she is saturating 94% on 5 L of oxygen via nasal cannula. At home she uses 4 L. Leukocytosis is improving Potassium still have 5.9. Therefore we going to discontinue her oral potassium dose of 10 mEq. Also will give calcium with sodium bicarb and albuterol. If her potassium remains elevated tomorrow then we might consider decreasing the dose or stopping her lisinopril 20 mg Consult PT/OT 11/15/2022 Patient lying in bed with mild tachypnea, her oxygen requirement is 5-6 L per minute compared to 4 liters at home. She denies any other complaint. Her labs showing persistent hyperkalemia at 5.8 after we stopped her potassium pills yesterday. We will lower her lisinopril 20 down to 10 mg and add Norvasc 10 mg, compared to 5 mg previously. With appropriate monitoring of blood pressu re. We'll lokelmn for hyperkalemia Monitor potassium level. PT/OT is ordered and pending Patient currently on Zithromax ceftriaxone, IV Lasix 40 mg twice daily and Solu- Medrol 40 mg. Patient informed about her right upper lobe lung mass 2.7 cm suspected to be pneumonia patient is aware and she agrees to follow up with service worker helper as an outpatient to ensure resolution Also patient instructed to follow up with control integration engineer Dr. Chairez for her thyroid nodule and she agrees (both physician contact information provided in the discharge instructions) Objective - Vital Signs Vital signs: Vital Signs Temp 98.1 F 11/15/22 08:00 Pulse 68 11/15/22 08:00 Resp 20 11/15/22 08:00 BP 129/59 11/15/22 08:00 Pulse Ox 100 11/15/22 09:37 FiO2 40 11/14/22 03:44 Intake & Output 11/14/22 11/15/22 11/15/22 18:59 06:59 18:59 Intake Total 118 Output Total 725 1050 Balance -607 -1050 Weight 72 kg Intake: Oral 118 Output: Urine 725 1050 Other: Voiding Method Diaper Diaper Diaper External Catheter External Catheter External Catheter - Exam -GENERAL: The patient is alert and oriented x3, not in any acute distress. Well developed, well nourished. HEENT: Pupils are round and equally reacting to light. EOMI. No scleral icterus. No conjunctival pallor. Normocephalic, atraumatic. No pharyngeal erythema. No thyromegaly. CARDIOVASCULAR: S1 and S2 present. No murmurs, rubs, or gallops. -PULMONARY: Chest is clear to auscultation, bilateral scattered wheezing or crepitation ABDOMEN: Soft, nontender, nondistended, normoactive bowel sounds. No palpable organomegaly. MUSCULOSKELETAL: No joint swelling or deformity. EXTREMITIES: No cyanosis, clubbing, or pedal edema. NEUROLOGICAL: Gross neurological examination did not reveal any focal deficits. SKIN: No rashes. no petechiae. - Labs CBC & Chem 7: 11/15/22 08:09 11/15/22 08:09 Labs: Abnormal Lab Results - Last 24 Hours (Table) 11/14/22 11/14/22 11/14/22 Range/Units 11:41 16:43 21:18 WBC (3.8-10.6) k/uL MCHC (31.0-37.0) g/dL Plt Count (150-450) k/uL Neutrophils # (1.3-7.7) k/uL Sodium (137-145) mmol/L Potassium (3.5-5.1) mmol/L Chloride (98-107) mmol/L BUN (7-17) mg/dL Creatinine (0.52-1.04) mg/dL POC Glucose (mg/dL) 141 H 158 H 166 H (70-110) mg/dL 11/15/22 11/15/22 11/15/22 Range/Units 06:21 08:09 08:09 WBC 14.3 H (3.8-10.6) k/uL MCHC 30.8 L (31.0-37.0) g/dL Plt Count 494 H (150-450) k/uL Neutrophils # 10.9 H (1.3-7.7) k/uL Sodium 132 L (137-145) mmol/L Potassium 5.8 H (3.5-5.1) mmol/L Chloride 97 L (98-107) mmol/L BUN 37 H (7-17) mg/dL Creatinine 1.09 H (0.52-1.04) mg/dL POC Glucose (mg/dL) 111 H (70-110) mg/dL Microbiology - Last 24 Hours (Table) 11/13/22 14:00 Blood Culture - Preliminary Blood 11/13/22 13:40 Blood Culture - Preliminary Blood Assessment and Plan Assessment: -Acute diastolic CHF with ejection fraction 55% -Pneumonia with masslike consolidation 2.7 cm. With paratracheal and hilar LAP, Patient informed, cannot exclude malignancy, pt will need close outpatient foll ow-up with pulmonary service upon discharge -Acute COPD exacerbation -Acute on chronic hypoxic respiratory failure -Hyperkalemia secondary to medication effect.. Potassium replacement therapy -Obesity with BMI of 29. -Mild hypernatremia -Right thyroid nodule was 2.3 cm currently 2.4, needs surveillance, patient informed_cancer also explained for her. Instructed to follow up with control integration engineer as an outpatient and contact information -for Dr. Chairez is provided for Plan: Continue with soluMedrol 40 mg Continue with Zithromax and ceftriaxone Continue with Lasix 40 mg Number lisinopril 20 down to 10 mg and increase Norvasc 5-10 mg. give lokelma , and check potassium level Patient will be require close outpatient follow-up with pulmonary to ensure resolution of pneumonia and to exclude other possibilities like tumors, patient informed and she agrees Patient also require follow-up as an outpatient with control integration engineer for her thyroid nodule for surveillance, patient informed and agrees. Risk of cancer explained Cartilage and pulmonary service on consult Labs and medication were reviewed.. Continue same treatment. Continue with symptomatic treatment. Resume home medication. Monitor labs and vitals. DVT and GI prophylaxis. Further recommendations as per clinical course of the patient DVT prophylaxis: Subcutaneous heparin GI Prophylaxis: Pepcid PT/OT: Pending Prognosis is guarded
[2022-11-15] MEDS: SODIUM ZIRCONIUM CYCLOSILICATE 10 GM PACKET PO SCH ×2 (15:29→20:08)
[2022-11-15 16:22] LABS: Glucose,Whole Blood 196 mg/dL (70-110)
[2022-11-15] MEDS: MONTELUKAST 10 MG TAB PO SCH (20:08)
[2022-11-15 20:27] LABS: Glucose,Whole Blood 203 mg/dL (70-110)
[2022-11-15] MEDS: OLANZapine 10 MG TAB PO SCH (20:52)
[2022-11-15] MEDS: ALBUTEROL HFA INHALER INHALATION PRN (21:41)
[2022-11-16] MEDS: LEVOTHYROXINE 75 MCG TAB PO SCH (05:36)
[2022-11-16 06:01] LABS: Glucose,Whole Blood 142 mg/dL (70-110)
--- NOTE | 2022-11-16 07:24 | XR ---
EXAMINATION TYPE: XR chest 1V portable DATE OF EXAM: 11/16/2022 COMPARISON: 11/14/2022 HISTORY: Shortness of breath TECHNIQUE: Single frontal view of the chest is obtained. FINDINGS: There is persistent right basilar infiltrate with limited inspiration. Small effusion. No pneumothorax. Atherosclerotic change aorta. Interstitial coarsening. IMPRESSION: Bilateral lower lobe infiltrate and small effusion stable.
[2022-11-16] MEDS: THIAMINE 100 MG TAB PO SCH (08:56)
[2022-11-16] MEDS: HEPARIN SODIUM,PORCINE/PF 5,000 UNIT/0.5 ML SYRINGE SQ SCH ×2 (08:56→21:09)
[2022-11-16] MEDS: lisinopriL 10 MG TAB PO SCH (08:56)
[2022-11-16] MEDS: busPIRone HCl 10 MG TAB PO SCH ×2 (08:56→21:09)
[2022-11-16] MEDS: lamoTRIgine 100 MG TAB PO SCH ×2 (08:56→21:09)
[2022-11-16] MEDS: TAMSULOSIN 0.4 MG CAP.ER.24H PO SCH ×2 (08:56→09:02)
[2022-11-16] MEDS: METOPROLOL TARTRATE 25 MG TAB PO SCH ×2 (08:56→21:09)
[2022-11-16] MEDS: amLODIPine 10 MG TAB PO SCH (08:56)
[2022-11-16] MEDS: FAMOTIDINE 20 MG TAB PO SCH (08:56)
[2022-11-16] MEDS: CITALOPRAM HYDROBROMIDE 10 MG TAB PO SCH (08:56)
[2022-11-16] MEDS: FERROUS SULFATE 325 MG TAB PO SCH (08:56)
[2022-11-16] MEDS: FUROSEMIDE 10 MG/ML 4 ML VIAL IV SCH (08:57)
[2022-11-16] MEDS: methylPREDNISolone SOD SUCCI 40 MG/ML 1 ML VIAL IV SCH ×3 (08:57→23:59)
[2022-11-16] MEDS: DIVALPROEX ER 250 MG TAB.ER.24H PO SCH (09:01)
[2022-11-16] MEDS: SYMBICORT 160-4.5 MCG INHALER INHALATION SCH ×2 (09:16→21:14)
[2022-11-16] MEDS: ALBUTEROL HFA INHALER INHALATION PRN (09:16)
[2022-11-16 11:40] LABS: Glucose,Whole Blood 172 mg/dL (70-110)
[2022-11-16 12:55] LABS: Basophils # (A) 0.1 k/uL (0-0.2); Basophils % (A) 1 %; Eosinophils # (A) 0.1 k/uL (0-0.7); Eosinophils % (A) 0 %; HCT 44.4 % (34.0-46.0); HGB 13.6 gm/dL (11.4-16.0); Lymphocytes # (A) 0.9 k/uL (1.0-4.8); Lymphocytes % (A) 6 %; MCH 28.9 pg (25.0-35.0); MCHC 30.7 g/dL (31.0-37.0); MCV 94.1 fL (80.0-100.0); Mean Platelet Volume 6.7; Monocytes # (A) 0.4 k/uL (0-1.0); Monocytes % (A) 3 %; Neutrophils # (A) 13.2 k/uL (1.3-7.7); Neutrophils % (A) 90 %; Platelet Count 562 k/uL (150-450); RBC 4.71 m/uL (3.80-5.40); RDW 13.2 % (11.5-15.5); WBC 14.7 k/uL (3.8-10.6)
[2022-11-16 13:12] LABS: Calcium 9.6 mg/dL (8.4-10.2); Potassium 5.1 mmol/L (3.5-5.1)
--- NOTE | 2022-11-16 14:29 | P.PN ---
Subjective Progress Note Date: 11/16/22 HISTORY OF PRESENT ILLNESS: Patient is a pleasant 67-year-old female with significant past medical history of COPD, diabetes, fibromyalgia, hypertension, pneumonia, and pulmonary embolism who presented with complaints of shortness of breath, weakness, falls. 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 She reports significant family history of her dad having rheumatic fever that led to a valve disease and he at 45. She is a smoker, 2 packs per day, denies any alcohol or drug use. She reports that she has been feeling short of breath for the past 3 weeks and has had a cough for the past 10-14 days. She just feels generally weak and has had a couple falls at home. Denies any dizziness or syncope. Denies any chest pains. Labs reviewed: Troponin 0.033, BNP 5810, WBC 16.1, hemoglobin 13.1, platelets 434, d-dimer elevated 2.6, pro-calcitonin elevated at 0.25, CRP elevated at 15.5, creatinine 0.85. ETA revealed small right pleural effusion, mild cardiomegaly, masslike 2.7 cm piece of the right upper lobe, no definite PE. EKG shows sinus rhythm with left axis deviation. Prior echocardiogram 04/2020 ejection fraction 5560%. She was on BiPAP overnight, however she is on 5 L nasal cannula O2 presently and reports breathing is feeling better. She states she wishes to go home today. Echo shows EF 55%, trace to mild mitral regurgitation, mild tricuspid regurgitation, RVSP 19. 4/30 She reports doing well, denies any chest pain. States she wants to go home. 11/16/2022 Patient examined this morning at the bedside. Patient denies chest pain or pressure. She denies shortness of breath. She remains on IV Lasix. She is also receiving IV steroids. Vital signs are stable. PHYSICAL EXAM: VITAL SIGNS: Reviewed. GENERAL: Well-developed in no acute distress. NECK: Supple. No JVD or thyromegaly LUNGS: Respirations even and unlabored. Lungs essentially clear to auscultation bilaterally. HEART: Regular rate and rhythm. S1 and S2 heard. EXTREMITIES: Normal range of motion. No clubbing or cyanosis. Peripheral pulses intact. No lower extremity edema ASSESSMENT: Acute heart failure with preserved ejection fraction Pneumonia Acute COPD exacerbation Hypertension Diabetes Nicotine dependence PLAN: Discontinue IV lasix. Begin oral lasix 40mg daily Continue additional cardiac medications Further recommendations pending patient course Nurse practitioner note has been reviewed by physician. Signing provider agrees with the documented findings, assessment, and plan of care. Objective - Vital Signs Vital signs: Vital Signs Temp 98.4 F 11/16/22 12:00 Pulse 69 11/16/22 12:00 Resp 17 11/16/22 12:00 BP 116/54 11/16/22 12:00 Pulse Ox 92 L 11/16/22 12:00 FiO2 40 11/14/22 03:44 Intake & Output 11/15/22 11/16/22 11/16/22 18:59 06:59 18:59 Intake Total 180 118 Output Total 1000 1900 350 Balance -820 -1900 -232 Weight 79 kg Intake: Oral 180 118 Output: Urine 1000 1900 350 Other: Voiding Method Diaper Diaper Diaper External Catheter External Catheter External Catheter # Bowel Movements 1 1 - Labs CBC & Chem 7: 11/16/22 12:43 11/16/22 12:43 Labs: Abnormal Lab Results - Last 24 Hours (Table) 11/15/22 11/15/22 11/16/22 Range/Units 16:20 20:25 06:00 WBC (3.8-10.6) k/uL MCHC (31.0-37.0) g/dL Plt Count (150-450) k/uL Neutrophils # (1.3-7.7) k/uL Lymphocytes # (1.0-4.8) k/uL Sodium (137-145) mmol/L Chloride (98-107) mmol/L Carbon Dioxide (22-30) mmol/L BUN (7-17) mg/dL Glucose (74-99) mg/dL POC Glucose (mg/dL) 196 H 203 H 142 H (70-110) mg/dL 11/16/22 11/16/22 11/16/22 Range/Units 11:37 12:43 12:43 WBC 14.7 H (3.8-10.6) k/uL MCHC 30.7 L (31.0-37.0) g/dL Plt Count 562 H (150-450) k/uL Neutrophils # 13.2 H (1.3-7.7) k/uL Lymphocytes # 0.9 L (1.0-4.8) k/uL Sodium 135 L (137-145) mmol/L Chloride 94 L (98-107) mmol/L Carbon Dioxide 39 H (22-30) mmol/L BUN 39 H (7-17) mg/dL Glucose 244 H (74-99) mg/dL POC Glucose (mg/dL) 172 H (70-110) mg/dL Microbiology - Last 24 Hours (Table) 11/13/22 14:00 Blood Culture - Preliminary Blood 11/13/22 13:40 Blood Culture - Preliminary Blood
--- NOTE | 2022-11-16 15:24 | P.PN ---
Subjective Progress Note Date: 11/16/22 Principal diagnosis: Shortness of breath. This is a 67-year-old female patient with a known history of oxygen dependent chronic obstructive pulmonary disease, chronic tobacco dependence, anxiety/depression, bipolar disorder, diabetes mellitus, fibromyalgia, hypertension, hypothyroidism. She was brought into the emergency room earlier this morning with progressive weakness and shortness of breath over the past 2-3 weeks. This morning she was so weak she slumped off the toilet and onto the floor. EMS was called. Denied any injury. Her O2 saturations on arrival in room air was 60%. Chest x-ray revealed borderline heart size and some shifting interstitial and patchy opacities in the right mid and lower lung. CT angiogram revealed constellation of findings including generalized anasarca, mild cardiomegaly, pulmonary artery hypertension, small right pleural effusion, scattered groundglass changes. Correlate for CHF with pulmonary vascular congestion. There is also some scattered nodular entry and bud opacities in the right mid and lower lung. Correlate to exclude infectious bronchiolitis, aspirations or atypical infections. There is a masslike 2.7 cm subpleural opacity in the posterior medial right upper lobe. Possible focal airspace disease/pneumonia. Extensive breathing motion artifact also noted. Difficult for the assessment for pulmonary embolus but no definite embolus seen. White count 16.1. Hemoglobin 13.1. Platelets 434. D-dimer 2.60. Sodium 129. Potassium 5.9. Chloride 97. Bicarb 25. BUN 25. Creatinine 0.73. Glucose 170. AST 40. ALT 33. C-reactive protein 15.5. ProBNP 5810. Urinalysis with moderate leukocytes, high WBCs and mucus. Influenza screen negative. RSV screen negative. COVID-19 screen negative. She is seen today in consultation in the emergency department. She is awake and alert. She is currently on BiPAP 12/6 at 40% FiO2 maintaining O2 saturations in the low 90s. She is in sinus rhythm. She is somewhat computed as to why she's here in the hospital. She denied any difficulty swallowing. She has been short of breath with cough and congestion. No hemoptysis. She's been initiated on ceftriaxone and DuoNeb inhalations along with Symbicort and IV Solu-Medrol. She's also been initiated on IV diuretics. The patient is seen today in 11/14/2022 in follow-up on the regular medical floor. She is currently sitting up at the bedside. Awake and alert in no acute distress. She is utilizing BiPAP 12/6 and 40% FiO2 during the evening. She is currently on 6 L nasal cannula. She's currently afebrile. Hemodynamically stable. Chest x-ray continues to show evidence of moderate diffuse interstitial opacity somewhat chronic in nature with some pulmonary vascular congestion and interstitial edema which has improved. Echocardiogram reveals preserved left ventricular systolic function with ejection fraction of 55%. No significant valvular heart disease. White count 12.3. Hemoglobin 12.0. Platelet count 446. Sodium 133. Potassium 5.9. BUN 26. Creatinine 0.84. Bicarb 26. Glucose 155. Pro-calcitonin 0.25. Legionella screen negative. She is continued on DuoNeb inhalations, Symbicort, IV Solu-Medrol. Antibiotics in the form of ceftriaxone and azithromycin. She remains on IV diuretics. Heparin for DVT prophylaxis. No accurate I&O based on incontinence. Reevaluated today on 11/15/2022, patient is feeling better, breathing a lot easier, less cough and less wheezing less shortness of breath. Patient remains on 6 L nasal cannula, O2 saturations ranging between 93 up to 100%. She is afebrile with a temp of 98.1, she is hemodynamically stable continues to have a bit of leukocytosis with WBC count of 14.3 hemoglobin is 12.2. Her potassium is a bit elevated at 5.8, BUN is 37 creatinine 1.09. Remains on bronchodilators, remains on Lasix at 40 mg twice a day, patient is also on Rocephin. Receiving methylprednisolone for her COPD. And overall the patient is doing better compared to her baseline on admission Progress note dated 11/16/2022. The patient is seen today in room 381. She's getting saline at 20 mL an hour. Her pro-calcitonin level 0.25. She is on 5 L of oxygen. She does feel much better. Today's laboratory includes a white count of 14.7, hemoglobin 13.6, hematocrit 44.4, and a normal platelet count. Sodium 135, potassium 5.1, chlorides 94, CO2 39, BUN 39, and creatinine 0.93. Calcium is 9.6. Glucose was 244. Blood cultures are currently negative. Chest x-ray shows bilateral lower lobe infiltrates, with small effusions. Objective - Vital Signs Vital signs: Vital Signs Temp 98.4 F 11/16/22 12:00 Pulse 69 11/16/22 14:00 Resp 17 11/16/22 14:00 BP 116/54 11/16/22 12:00 Pulse Ox 92 L 11/16/22 12:00 FiO2 40 11/14/22 03:44 Intake & Output 11/15/22 11/16/22 11/16/22 18:59 06:59 18:59 Intake Total 180 118 Output Total 1000 1900 350 Balance -820 -1900 -232 Weight 79 kg Intake: Oral 180 118 Output: Urine 1000 1900 350 Other: Voiding Method Diaper Diaper Diaper External Catheter External Catheter External Catheter # Bowel Movements 1 1 - Exam No acute distress, oriented 3. Currently on 5 L nasal cannula. No audible wheezing, or use of accessory muscles. HEENT examination is grossly unremarkable. Neck supple. Full range of motion. No adenopathy thyromegaly or neck vein distention. Cardiovascular examination reveals regular rhythm rate. S1-S2 normal. No S3 or S4. No discernible murmur noted. Heart sounds are distant. Heart rate 69 bpm. Lungs reveal scattered bilateral rhonchi. No wheezes. A few scattered crac kles. Breath sounds equal. 5 L saturation is 94%. Abdomen soft bowel sounds are heard. No masses or tenderness. Extremities are intact. No cyanosis clubbing or edema. Skin is without rash or lesion. Neurologic examination is brief but nonfocal. - Labs CBC & Chem 7: 11/16/22 12:43 11/16/22 12:43 Labs: Abnormal Lab Results - Last 24 Hours (Table) 11/15/22 11/15/22 11/16/22 Range/Units 16:20 20:25 06:00 WBC (3.8-10.6) k/uL MCHC (31.0-37.0) g/dL Plt Count (150-450) k/uL Neutrophils # (1.3-7.7) k/uL Lymphocytes # (1.0-4.8) k/uL Sodium (137-145) mmol/L Chloride (98-107) mmol/L Carbon Dioxide (22-30) mmol/L BUN (7-17) mg/dL Glucose (74-99) mg/dL POC Glucose (mg/dL) 196 H 203 H 142 H (70-110) mg/dL 11/16/22 11/16/22 11/16/22 Range/Units 11:37 12:43 12:43 WBC 14.7 H (3.8-10.6) k/uL MCHC 30.7 L (31.0-37.0) g/dL Plt Count 562 H (150-450) k/uL Neutrophils # 13.2 H (1.3-7.7) k/uL Lymphocytes # 0.9 L (1.0-4.8) k/uL Sodium 135 L (137-145) mmol/L Chloride 94 L (98-107) mmol/L Carbon Dioxide 39 H (22-30) mmol/L BUN 39 H (7-17) mg/dL Glucose 244 H (74-99) mg/dL POC Glucose (mg/dL) 172 H (70-110) mg/dL Microbiology - Last 24 Hours (Table) 11/13/22 14:00 Blood Culture - Preliminary Blood 11/13/22 13:40 Blood Culture - Preliminary Blood Assessment and Plan Assessment: Acute hypoxemic respiratory failure, secondary to an acute exacerbation of diastolic CHF, along with possible bibasilar community-acquired pneumonia. Moderate COPD, with an FEV1 that is 64% of predicted. History of interstitial lung disease. Chronic tobacco dependence. History of bipolar disorder. History of diabetes mellitus. History of fibromyalgia. History of hypertension. History of hypothyroidism. Plan: Plan dated 11/16/2022. The patient is seen and examined. Labs are reviewed. Medications and x-rays are reviewed. The patient will continue with antibiotics, bronchodilators, and Solu-Medrol. In addition, we will continue with diuretics. The patient's chest x-ray was evaluated. We will continue to follow and make recommendations along the way. Prognosis is guarded. Patient still is on 5 L of nasal oxygen. Time with Patient: Less than 30
[2022-11-16 16:46] LABS: Glucose,Whole Blood 188 mg/dL (70-110)
[2022-11-16 20:12] LABS: Glucose,Whole Blood 175 mg/dL (70-110)
[2022-11-16 21:08] VITALS: RESP 18
[2022-11-16] MEDS: OLANZapine 10 MG TAB PO SCH (21:09)
[2022-11-16] MEDS: MONTELUKAST 10 MG TAB PO SCH (21:09)
--- NOTE | 2022-11-17 00:12 | P.PN ---
Subjective This is a pleasant 67 years old female who was present and because of worsening dyspnea and weakness over 2 weeks, patient also fell at home on the toilet without losing consciousness. Patient had extensive workup and his been evaluated by cardiology and pulmonary services. Patient found to have both COPD and CHF as well as pneumonia. CTA of the chest showing right hilar and paratracheal lymphadenopathy with masslike consolidation about 2.7 cm, pulmonary team believe this masslike is mostly pneumonia. Patient informed about this mass and the need to do a follow- up upon discharge, risks including but not limited to cancer are explained for her and she verbalized understanding and acceptance. She's continued to be covered with antibiotic Zithromax ceftriaxone, IV Lasix 40 mg twice daily and Solu-Medrol 40 mg She's requiring BiPAP overnight and she is saturating 94% on 5 L of oxygen via nasal cannula. At home she uses 4 L. Leukocytosis is improving Potassium still have 5.9. Therefore we going to discontinue her oral potassium dose of 10 mEq. Also will give calcium with sodium bicarb and albuterol. If her potassium remains elevated tomorrow then we might consider decreasing the dose or stopping her lisinopril 20 mg Consult PT/OT 11/15/2022 Patient lying in bed with mild tachypnea, her oxygen requirement is 5-6 L per minute compared to 4 liters at home. She denies any other complaint. Her labs showing persistent hyperkalemia at 5.8 after we stopped her potassium pills yesterday. We will lower her lisinopril 20 down to 10 mg and add Norvasc 10 mg, compared to 5 mg previously. With appropriate monitoring of blood pressu re. We'll lokelfl for hyperkalemia Monitor potassium level. PT/OT is ordered and pending Patient currently on Zithromax ceftriaxone, IV Lasix 40 mg twice daily and Solu- Medrol 40 mg. Patient informed about her right upper lobe lung mass 2.7 cm suspected to be pneumonia patient is aware and she agrees to follow up with relief pilot as an outpatient to ensure resolution Also patient instructed to follow up with contract designer Dr. Chairez for her thyroid nodule and she agrees (both physician contact information provided in the discharge instructions) 11/19/2022 Patient still looks tired somewhat lethargic Chest on 5 L of oxygen via nasal cannula. Patient has minimal tachypnea at rest. Senna in bed most of the time. Potassium came down to 5.1. Potassium supplement was discontinued. lower the dose of lisinopril to 10 mg. Currently patient on Symmetrel 40 mg, IV Lasix 40 mg, Zithromax ceftriaxone Objective - Vital Signs Vital signs: Vital Signs Temp 98 F 11/16/22 20:00 Pulse 68 11/16/22 20:00 Resp 18 11/16/22 20:00 BP 133/63 11/16/22 20:00 Pulse Ox 94 L 11/16/22 20:00 FiO2 40 11/14/22 03:44 Intake & Output 11/16/22 11/16/22 11/17/22 06:59 18:59 06:59 Intake Total 236 Output Total 1900 900 Balance -1900 -4 Weight 79 kg Intake: Oral 236 Output: Urine 1900 900 Other: Voiding Method Diaper Diaper Diaper External Catheter External Catheter External Catheter # Bowel Movements 1 1 - Exam -GENERAL: The patient is alert and oriented x3, not in any acute distress. Well developed, well nourished. HEENT: Pupils are round and equally reacting to light. EOMI. No scleral icterus. No conjunctival pallor. Normocephalic, atraumatic. No pharyngeal erythema. No thyromegaly. CARDIOVASCULAR: S1 and S2 present. No murmurs, rubs, or gallops. -PULMONARY: Chest is clear to auscultation, bilateral scattered wheezing or crepitation ABDOMEN: Soft, nontender, nondistended, normoactive bowel sounds. No palpable organomegaly. MUSCULOSKELETAL: No joint swelling or deformity. EXTREMITIES: No cyanosis, clubbing, or pedal edema. NEUROLOGICAL: Gross neurological examination did not reveal any focal deficits. SKIN: No rashes. no petechiae. - Labs CBC & Chem 7: 11/16/22 12:43 11/16/22 12:43 Labs: Abnormal Lab Results - Last 24 Hours (Table) 11/16/22 11/16/22 11/16/22 Range/Units 06:00 11:37 12:43 WBC 14.7 H (3.8-10.6) k/uL MCHC 30.7 L (31.0-37.0) g/dL Plt Count 562 H (150-450) k/uL Neutrophils # 13.2 H (1.3-7.7) k/uL Lymphocytes # 0.9 L (1.0-4.8) k/uL Sodium (137-145) mmol/L Chloride (98-107) mmol/L Carbon Dioxide (22-30) mmol/L BUN (7-17) mg/dL Glucose (74-99) mg/dL POC Glucose (mg/dL) 142 H 172 H (70-110) mg/dL 11/16/22 11/16/22 11/16/22 Range/Units 12:43 16:36 20:10 WBC (3.8-10.6) k/uL MCHC (31.0-37.0) g/dL Plt Count (150-450) k/uL Neutrophils # (1.3-7.7) k/uL Lymphocytes # (1.0-4.8) k/uL Sodium 135 L (137-145) mmol/L Chloride 94 L (98-107) mmol/L Carbon Dioxide 39 H (22-30) mmol/L BUN 39 H (7-17) mg/dL Glucose 244 H (74-99) mg/dL POC Glucose (mg/dL) 188 H 175 H (70-110) mg/dL Microbiology - Last 24 Hours (Table) 11/13/22 14:00 Blood Culture - Preliminary Blood 11/13/22 13:40 Blood Culture - Preliminary Blood Assessment and Plan Assessment: -Acute diastolic CHF with ejection fraction 55% -Pneumonia with masslike consolidation 2.7 cm. With paratracheal and hilar LAP, Patient informed, cannot exclude malignancy, pt will need close outpatient follow-up with pulmonary service upon discharge -Acute COPD exacerbation -Acute on chronic hypoxic respiratory failure -Hyperkalemia secondary to medication effect.. Potassium replacement therapy -Obesity with BMI of 29. -Mild hypernatremia -Right thyroid nodule was 2.3 cm currently 2.4, needs surveillance, patient informed_cancer also explained for her. Instructed to follow up with contract designer as an outpatient and contact information -for Dr. Chairez is provided for Plan: Continue with soluMedrol 40 mg Continue with Zithromax and ceftriaxone Continue with Lasix 40 mg Number lisinopril 20 down to 10 mg and increase Norvasc 5-10 mg. give lokelma , and check potassium level Patient will be require close outpatient follow-up with pulmonary to ensure resolution of pneumonia and to exclude other possibilities like tumors, patient informed and she agrees Patient also require follow-up as an outpatient with contract designer for her thyroid nodule for surveillance, patient informed and agrees. Risk of cancer explained Cartilage and pulmonary service on consult Labs and medication were reviewed.. Continue same treatment. Continue with symptomatic treatment. Resume home medication. Monitor labs and vitals. DVT and GI prophylaxis. Further recommendations as per clinical course of the patient DVT prophylaxis: Subcutaneous heparin GI Prophylaxis: Pepcid PT/OT: Pending Prognosis is guarded
[2022-11-17] MEDS: LEVOTHYROXINE 75 MCG TAB PO SCH (06:16)
[2022-11-17 06:21] LABS: Glucose,Whole Blood 165 mg/dL (70-110)
[2022-11-17] MEDS: CITALOPRAM HYDROBROMIDE 10 MG TAB PO SCH (08:27)
[2022-11-17] MEDS: lisinopriL 10 MG TAB PO SCH (08:27)
[2022-11-17] MEDS: METOPROLOL TARTRATE 25 MG TAB PO SCH (08:27)
[2022-11-17] MEDS: HEPARIN SODIUM,PORCINE/PF 5,000 UNIT/0.5 ML SYRINGE SQ SCH (08:27)
[2022-11-17] MEDS: busPIRone HCl 10 MG TAB PO SCH (08:27)
[2022-11-17] MEDS: amLODIPine 10 MG TAB PO SCH (08:27)
[2022-11-17] MEDS: FAMOTIDINE 20 MG TAB PO SCH (08:27)
[2022-11-17] MEDS: lamoTRIgine 100 MG TAB PO SCH (08:28)
[2022-11-17] MEDS: TAMSULOSIN 0.4 MG CAP.ER.24H PO SCH (08:28)
[2022-11-17] MEDS: FERROUS SULFATE 325 MG TAB PO SCH (08:28)
[2022-11-17] MEDS: THIAMINE 100 MG TAB PO SCH (08:28)
[2022-11-17] MEDS: methylPREDNISolone SOD SUCCI 40 MG/ML 1 ML VIAL IV SCH (08:28)
[2022-11-17] MEDS: DIVALPROEX ER 250 MG TAB.ER.24H PO SCH (08:33)
[2022-11-17] MEDS ORDERED: FUROSEMIDE 40 MG TAB PO SCH (09:00)
[2022-11-17] MEDS: IPRATROPIUM-ALBUTEROL 3 ML NEB INHALATION PRN ×2 (09:53→12:47)
[2022-11-17] MEDS: SYMBICORT 160-4.5 MCG INHALER INHALATION SCH (09:53)
[2022-11-17 11:34] VITALS: BP 123/56; TEMP 98.3
[2022-11-17 11:37] LABS: Glucose,Whole Blood 121 mg/dL (70-110)
--- NOTE | 2022-11-17 11:54 | P.PN ---
Subjective Progress Note Date: 11/17/22 HISTORY OF PRESENT ILLNESS: Patient is a pleasant 67-year-old female with significant past medical history of COPD, diabetes, fibromyalgia, hypertension, pneumonia, and pulmonary embolism who presented with complaints of shortness of breath, weakness, falls. 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 She reports significant family history of her dad having rheumatic fever that led to a valve disease and he at 45. She is a smoker, 2 packs per day, denies any alcohol or drug use. She reports that she has been feeling short of breath for the past 3 weeks and has had a cough for the past 10-14 days. She just feels generally weak and has had a couple falls at home. Denies any dizziness or syncope. Denies any chest pains. Labs reviewed: Troponin 0.033, BNP 5810, WBC 16.1, hemoglobin 13.1, platelets 434, d-dimer elevated 2.6, pro-calcitonin elevated at 0.25, CRP elevated at 15.5, creatinine 0.85. ETA revealed small right pleural effusion, mild cardiomegaly, masslike 2.7 cm piece of the right upper lobe, no definite PE. EKG shows sinus rhythm with left axis deviation. Prior echocardiogram 04/2020 ejection fraction 5560%. She was on BiPAP overnight, however she is on 5 L nasal cannula O2 presently and reports breathing is feeling better. She states she wishes to go home today. Echo shows EF 55%, trace to mild mitral regurgitation, mild tricuspid regurgitation, RVSP 19. 4/30 She reports doing well, denies any chest pain. States she wants to go home. 11/16/2022 Patient examined this morning at the bedside. Patient denies chest pain or pressure. She denies shortness of breath. She remains on IV Lasix. She is also receiving IV steroids. Vital signs are stable. 11/17/2022 Patient examined this morning the bedside. She denies chest pain or pressure. She denies shortness of breath. She has been transitioned to oral Lasix. Vital signs are stable. PHYSICAL EXAM: VITAL SIGNS: Reviewed. GENERAL: Well-developed in no acute distress. NECK: Supple. No JVD or thyromegaly LUNGS: Respirations even and unlabored. Lungs essentially clear to auscultation bilaterally. HEART: Regular rate and rhythm. S1 and S2 heard. EXTREMITIES: Normal range of motion. No clubbing or cyanosis. Peripheral puls es intact. No lower extremity edema ASSESSMENT: Acute heart failure with preserved ejection fraction Pneumonia Acute COPD exacerbation Hypertension Diabetes Nicotine dependence PLAN: Continue current cardiac medications Patient is stable for discharge home today from a cardiac stand point Will sign off. Please reconsult if needed. Nurse practitioner note has been reviewed by physician. Signing provider agrees with the documented findings, assessment, and plan of care. Objective - Vital Signs Vital signs: Vital Signs Temp 98.3 F 11/17/22 11:33 Pulse 65 11/17/22 11:33 Resp 18 11/17/22 11:33 BP 123/56 11/17/22 11:33 Pulse Ox 91 L 11/17/22 11:33 FiO2 40 11/14/22 03:44 Intake & Output 11/16/22 11/17/22 11/17/22 18:59 06:59 18:59 Intake Total 236 Output Total 900 550 Balance -664 -550 Weight 77.5 kg Intake: Oral 236 Output: Urine 900 550 Other: Voiding Method Diaper Diaper Diaper External Catheter External Catheter External Catheter # Bowel Movements 1 - Labs CBC & Chem 7: 11/16/22 12:43 11/16/22 12:43 Labs: Abnormal Lab Results - Last 24 Hours (Table) 11/16/22 11/16/22 11/16/22 Range/Units 12:43 12:43 16:36 WBC 14.7 H (3.8-10.6) k/uL MCHC 30.7 L (31.0-37.0) g/dL Plt Count 562 H (150-450) k/uL Neutrophils # 13.2 H (1.3-7.7) k/uL Lymphocytes # 0.9 L (1.0-4.8) k/uL Sodium 135 L (137-145) mmol/L Chloride 94 L (98-107) mmol/L Carbon Dioxide 39 H (22-30) mmol/L BUN 39 H (7-17) mg/dL Glucose 244 H (74-99) mg/dL POC Glucose (mg/dL) 188 H (70-110) mg/dL 11/16/22 11/17/22 11/17/22 Range/Units 20:10 06:20 11:35 WBC (3.8-10.6) k/uL MCHC (31.0-37.0) g/dL Plt Count (150-450) k/uL Neutrophils # (1.3-7.7) k/uL Lymphocytes # (1.0-4.8) k/uL Sodium (137-145) mmol/L Chloride (98-107) mmol/L Carbon Dioxide (22-30) mmol/L BUN (7-17) mg/dL Glucose (74-99) mg/dL POC Glucose (mg/dL) 175 H 165 H 121 H (70-110) mg/dL Microbiology - Last 24 Hours (Table) 11/13/22 14:00 Blood Culture - Preliminary Blood 11/13/22 13:40 Blood Culture - Preliminary Blood
--- NOTE | 2022-11-17 12:23 | P.PN ---
Subjective Progress Note Date: 11/17/22 Principal diagnosis: Shortness of breath. This is a 67-year-old female patient with a known history of oxygen dependent chronic obstructive pulmonary disease, chronic tobacco dependence, anxiety/depression, bipolar disorder, diabetes mellitus, fibromyalgia, hypertension, hypothyroidism. She was brought into the emergency room earlier this morning with progressive weakness and shortness of breath over the past 2-3 weeks. This morning she was so weak she slumped off the toilet and onto the floor. EMS was called. Denied any injury. Her O2 saturations on arrival in room air was 60%. Chest x-ray revealed borderline heart size and some shifting interstitial and patchy opacities in the right mid and lower lung. CT angiogram revealed constellation of findings including generalized anasarca, mild cardiomegaly, pulmonary artery hypertension, small right pleural effusion, scattered groundglass changes. Correlate for CHF with pulmonary vascular congestion. There is also some scattered nodular entry and bud opacities in the right mid and lower lung. Correlate to exclude infectious bronchiolitis, aspirations or atypical infections. There is a masslike 2.7 cm subpleural opacity in the posterior medial right upper lobe. Possible focal airspace disease/pneumonia. Extensive breathing motion artifact also noted. Difficult for the assessment for pulmonary embolus but no definite embolus seen. White count 16.1. Hemoglobin 13.1. Platelets 434. D-dimer 2.60. Sodium 129. Potassium 5.9. Chloride 97. Bicarb 25. BUN 25. Creatinine 0.73. Glucose 170. AST 40. ALT 33. C-reactive protein 15.5. ProBNP 5810. Urinalysis with moderate leukocytes, high WBCs and mucus. Influenza screen negative. RSV screen negative. COVID-19 screen negative. She is seen today in consultation in the emergency department. She is awake and alert. She is currently on BiPAP 12/6 at 40% FiO2 maintaining O2 saturations in the low 90s. She is in sinus rhythm. She is somewhat computed as to why she's here in the hospital. She denied any difficulty swallowing. She has been short of breath with cough and congestion. No hemoptysis. She's been initiated on ceftriaxone and DuoNeb inhalations along with Symbicort and IV Solu-Medrol. She's also been initiated on IV diuretics. The patient is seen today in 11/14/2022 in follow-up on the regular medical floor. She is currently sitting up at the bedside. Awake and alert in no acute distress. She is utilizing BiPAP 12/6 and 40% FiO2 during the evening. She is currently on 6 L nasal cannula. She's currently afebrile. Hemodynamically stable. Chest x-ray continues to show evidence of moderate diffuse interstitial opacity somewhat chronic in nature with some pulmonary vascular congestion and interstitial edema which has improved. Echocardiogram reveals preserved left ventricular systolic function with ejection fraction of 55%. No significant valvular heart disease. White count 12.3. Hemoglobin 12.0. Platelet count 446. Sodium 133. Potassium 5.9. BUN 26. Creatinine 0.84. Bicarb 26. Glucose 155. Pro-calcitonin 0.25. Legionella screen negative. She is continued on DuoNeb inhalations, Symbicort, IV Solu-Medrol. Antibiotics in the form of ceftriaxone and azithromycin. She remains on IV diuretics. Heparin for DVT prophylaxis. No accurate I&O based on incontinence. Reevaluated today on 11/15/2022, patient is feeling better, breathing a lot easier, less cough and less wheezing less shortness of breath. Patient remains on 6 L nasal cannula, O2 saturations ranging between 93 up to 100%. She is afebrile with a temp of 98.1, she is hemodynamically stable continues to have a bit of leukocytosis with WBC count of 14.3 hemoglobin is 12.2. Her potassium is a bit elevated at 5.8, BUN is 37 creatinine 1.09. Remains on bronchodilators, remains on Lasix at 40 mg twice a day, patient is also on Rocephin. Receiving methylprednisolone for her COPD. And overall the patient is doing better compared to her baseline on admission Progress note dated 11/16/2022. The patient is seen today in room 381. She's getting saline at 20 mL an hour. Her pro-calcitonin level 0.25. She is on 5 L of oxygen. She does feel much better. Today's laboratory includes a white count of 14.7, hemoglobin 13.6, hematocrit 44.4, and a normal platelet count. Sodium 135, potassium 5.1, chlorides 94, CO2 39, BUN 39, and creatinine 0.93. Calcium is 9.6. Glucose was 244. Blood cultures are currently negative. Chest x-ray shows bilateral lower lobe infiltrates, with small effusions. Progress note dated 11/17/2022. The patient is seen today in room 381. The patient is currently on oxygen at 4 L by nasal cannula. The patient's getting saline at 20 mL an hour. The patient is being considered for possible discharge. From the pulmonary standpoint, the patient could be considered for discharge. No new labs today glucose 121. Blood cultures are negative. Chest x-ray from yesterday, show bilateral lower lobe infiltrates, and small effusion. Objective - Vital Signs Vital signs: Vital Signs Temp 98.3 F 11/17/22 11:33 Pulse 65 11/17/22 11:33 Resp 18 11/17/22 11:33 BP 123/56 11/17/22 11:33 Pulse Ox 91 L 11/17/22 11:33 FiO2 40 11/14/22 03:44 Intake & Output 11/16/22 11/17/22 11/17/22 18:59 06:59 18:59 Intake Total 236 Output Total 900 550 Balance -664 -550 Weight 77.5 kg Intake: Oral 236 Output: Urine 900 550 Other: Voiding Method Diaper Diaper Diaper External Catheter External Catheter External Catheter # Bowel Movements 1 - Exam No acute distress, oriented 3. Currently on 4 L nasal cannula. No audible wheezing, or use of accessory muscles. HEENT examination is grossly unremarkable. Neck supple. Full range of motion. No adenopathy thyromegaly or neck vein dist ention. Cardiovascular examination reveals regular rhythm rate. S1-S2 normal. No S3 or S4. No discernible murmur noted. Heart sounds are distant. Heart rate 74 bpm. Lungs reveal scattered bilateral rhonchi. No wheezes. A few scattered crackles. Breath sounds equal. 4 L saturation is 92%. No respiratory distress or difficulty. The patient can speak in full sentences. Abdomen soft bowel sounds are heard. No masses or tenderness. Extremities are intact. No cyanosis clubbing or edema. Skin is without rash or lesion. Neurologic examination is brief but nonfocal. - Labs CBC & Chem 7: 11/16/22 12:43 11/16/22 12:43 Labs: Abnormal Lab Results - Last 24 Hours (Table) 11/16/22 11/16/22 11/16/22 Range/Units 12:43 12:43 16:36 WBC 14.7 H (3.8-10.6) k/uL MCHC 30.7 L (31.0-37.0) g/dL Plt Count 562 H (150-450) k/uL Neutrophils # 13.2 H (1.3-7.7) k/uL Lymphocytes # 0.9 L (1.0-4.8) k/uL Sodium 135 L (137-145) mmol/L Chloride 94 L (98-107) mmol/L Carbon Dioxide 39 H (22-30) mmol/L BUN 39 H (7-17) mg/dL Glucose 244 H (74-99) mg/dL POC Glucose (mg/dL) 188 H (70-110) mg/dL 11/16/22 11/17/22 11/17/22 Range/Units 20:10 06:20 11:35 WBC (3.8-10.6) k/uL MCHC (31.0-37.0) g/dL Plt Count (150-450) k/uL Neutrophils # (1.3-7.7) k/uL Lymphocytes # (1.0-4.8) k/uL Sodium (137-145) mmol/L Chloride (98-107) mmol/L Carbon Dioxide (22-30) mmol/L BUN (7-17) mg/dL Glucose (74-99) mg/dL POC Glucose (mg/dL) 175 H 165 H 121 H (70-110) mg/dL Microbiology - Last 24 Hours (Table) 11/13/22 14:00 Blood Culture - Preliminary Blood 11/13/22 13:40 Blood Culture - Preliminary Blood Assessment and Plan Assessment: Acute hypoxemic respiratory failure, secondary to an acute exacerbation of diastolic CHF, along with possible bibasilar community-acquired pneumonia. Moderate COPD, with an FEV1 that is 64% of predicted. History of interstitial lung disease. Chronic tobacco dependence. History of bipolar disorder. History of diabetes mellitus. History of fibromyalgia. History of hypertension. History of hypothyroidism. Plan: Plan dated 11/16/2022. The patient is seen and examined. Labs are reviewed. Medications and x-rays are reviewed. The patient will continue with antibiotics, bronchodilators, and Solu-Medrol. In addition, we will continue with diuretics. The patient's chest x-ray was evaluated. We will continue to follow and make recommendations along the way. Prognosis is guarded. Patient still is on 5 L of nasal oxygen. Plan dated 11/17/2022. The patient appears to be doing much better. Labs, x-rays, and medications are all. The patient has completed 4 days of antibiotics. We are recommending 3 additional days. The patient's chest x-ray from November 16 was evaluated. She's currently on 4 L. The patient is anxious to be discharged. She's feeling much better. Labs, x-rays, and medications are reviewed. Prognosis is guarded. Time with Patient: Less than 30
[2022-11-17 13:56] VITALS: PULSE 65
--- NOTE | 2022-11-17 23:32 | P.DS ---
Providers Date of admission: 11/13/22 13:11 Attending physician: Saeed Lai MD Consults: 11/13/22 13:20 Consult Physician Urgent Consulting Provider: Mayur Roche Consult Reason/Comments: Pneumonia, hypoxemia Do you want consulting provider notified?: Yes Primary care physician: Andrzej Wheeler Hospital Course: Diagnoses: -Acute diastolic CHF with ejection fraction 55% -Pneumonia with mass-like consolidation 2.7 cm. With paratracheal and hilar LAP, Patient informed, cannot exclude malignancy, pt will need close outpatient follow-up with pulmonary service upon discharge -Acute COPD exacerbation -Acute on chronic hypoxic respiratory failure -Hyperkalemia secondary to medication effect.. Potassium replacement therapy -Obesity with BMI of 29. -Mild hypernatremia -Right thyroid nodule was 2.3 cm currently 2.4, needs surveillance, patient informed_cancer also explained for her. Instructed to follow up with department specialist as an outpatient and contact information -for Dr. Chairez is provided for Hospital course: This is a pleasant 67 years old female who was present and because of worsening dyspnea and weakness over 2 weeks, patient also fell at home on the toilet without losing consciousness. Patient had extensive workup and his been evaluated by cardiology and pulmonary services. Patient found to have both COPD and CHF as well as pneumonia. CTA of the chest showing right hilar and paratracheal lymphadenopathy with masslike consolidation about 2.7 cm, pulmonary team believe this masslike is mostly pneumonia. Patient informed about this mass and the need to do a follow- up upon discharge, risks including but not limited to cancer are explained for her and she verbalized understanding and acceptance. She's continued to be covered with antibiotic Zithromax ceftriaxone, IV Lasix 40 mg twice daily and Solu-Medrol 40 mg She's required BiPAP overnight and she is saturating 94% on 5 L of oxygen via nasal cannula. At home she uses 4 L. Leukocytosis is improving Patient wasalso to have hypercalcemia, improved with discontinuing potassium unknown at the dose of lisinopril 20 mg. Potassium yesterday was normal. Today I discussed with the patient recheck in potassium, patient declined to recheck potassium in the hospital today and she wants to follow up as an outpatient. Patient advised with low potassium diet and to check her potassium level with her PCP on the closest follow-up and she verbalized understanding and acceptance visit with her at bedside. Today patient showed interval improvement and patient is back to baseline, she denies chest pain or dyspnea, over the last 48 hours patient was requesting to go home. Today she still feels she can go home. She is on 4 L oxygen which is her home dose. Patient has oxygen at home. Patient was cleared by pulmonary service and cardiology service for discharge Patient will be discharged on antibiotic, oral Lasix, antihypertensive and prednisone taper. Problems and management plan were discussed with the patient and he verbalized understanding and acceptance Patient was found stable and can be discharged home in guarded prognosis however he needs follow-up as an outpatient. Patient was instructed to follow up with PCP within one week and patient agrees Patient was instructed to follow up with internal communications manager Dr. Aguero in one week, plant breeder in 7-10 days, and with department specialist in 2-3 weeks and she verbalized understanding and acceptance Physical exam Gen: patient is a AAOx3, no distress CVS: S1-S2, RRR, no murmur -Lungs: B/L CTA, no wheezing. Patient informed with oxygen via nasal cannula Abdomen: soft, no distention, no tenderness, positive bowel sounds Extremity: no leg edema or induration Time spent more than 35 minutes Plan - Discharge Summary Discharge Rx Participant: No New Discharge Prescriptions: New cefUROXime axetiL [Ceftin] 500 mg PO BID 3 Days #6 tab Furosemide [Lasix] 40 mg PO DAILY #30 tab amLODIPine [Norvasc] 10 mg PO DAILY #30 tab predniSONE 10 mg PO DIRECTED #40 tab Acetaminophen Tab [Tylenol] 650 mg PO Q6HR PRN tab PRN Reason: Mild Pain Or Fever > 100.5 Albuterol Inhaler [Ventolin Hfa Inhaler] 2 puff INHALATION RT-QID PRN #1 each PRN Reason: Shortness Of Breath lisinopriL [Zestril] 10 mg PO DAILY #30 tab Continue busPIRone HCL [Buspar] 30 mg PO BID Montelukast [Singulair] 10 mg PO HS Levothyroxine Sodium [Synthroid] 150 mcg PO DAILY OLANZapine [ZyPREXA] 10 mg PO HS Divalproex ER [Depakote ER] 250 mg PO DAILY Thiamine [Vitamin B-1] 100 mg PO DAILY Metoprolol Tartrate [Lopressor] 25 mg PO BID Ipratropium-Albuterol Nebulize [Duoneb 0.5 mg-3 mg/3 ml Soln] 3 ml INHALATION RT-QID PRN PRN Reason: Shortness Of Breath ALPRAZolam [Xanax] 0.5 mg PO DAILY PRN PRN Reason: Anxiety Budesonide/Formoterol Fumarate [Symbicort 160-4.5 Mcg Inhaler] 2 puff INHALATION RT-BID Famotidine [Pepcid] 20 mg PO BID lamoTRIgine [LaMICtal] 100 mg PO BID Tamsulosin [Flomax] 0.4 mg PO DAILY Ferrous Sulfate [Iron (65 MG Elemental)] 325 mg PO DAILY Docusate [Colace] 100 mg PO BID PRN PRN Reason: Constipation Citalopram Hydrobromide [CeleXA] 10 mg PO DAILY Discontinued Albuterol Sulfate [Proair Hfa] 2 puff INHALATION RT-QID PRN PRN Reason: Shortness Of Breath lisinopriL 20 mg PO DAILY amLODIPine [Norvasc] 5 mg PO DAILY Potassium Chloride ER [K-Dur 10] 10 meq PO DAILY Discharge Medication List Montelukast [Singulair] 10 mg PO HS 12/17/13 [History] busPIRone HCL [Buspar] 30 mg PO BID 12/17/13 [History] Levothyroxine Sodium [Synthroid] 150 mcg PO DAILY 03/29/20 [History] Budesonide/Formoterol Fumarate [Symbicort 160-4.5 Mcg Inhaler] 2 puff INHALATION RT-BID 06/12/21 [History] Famotidine [Pepcid] 20 mg PO BID 09/03/21 [History] lamoTRIgine [LaMICtal] 100 mg PO BID 09/03/21 [History] Divalproex ER [Depakote ER] 250 mg PO DAILY 10/07/21 [History] OLANZapine [ZyPREXA] 10 mg PO HS 10/07/21 [History] Tamsulosin [Flomax] 0.4 mg PO DAILY 10/26/21 [History] ALPRAZolam [Xanax] 0.5 mg PO DAILY PRN 11/13/22 [History] Citalopram Hydrobromide [CeleXA] 10 mg PO DAILY 11/13/22 [History] Docusate [Colace] 100 mg PO BID PRN 11/13/22 [History] Ferrous Sulfate [Iron (65 MG Elemental)] 325 mg PO DAILY 11/13/22 [History] Ipratropium-Albuterol Nebulize [Duoneb 0.5 mg-3 mg/3 ml Soln] 3 ml INHALATION RT-QID PRN 11/13/22 [History] Metoprolol Tartrate [Lopressor] 25 mg PO BID 11/13/22 [History] Thiamine [Vitamin B-1] 100 mg PO DAILY 11/13/22 [History] Acetaminophen Tab [Tylenol] 650 mg PO Q6HR PRN tab 11/17/22 [Rx] Albuterol Inhaler [Ventolin Hfa Inhaler] 2 puff INHALATION RT-QID PRN #1 each 11/17/22 [Rx] Furosemide [Lasix] 40 mg PO DAILY #30 tab 11/17/22 [Rx] amLODIPine [Norvasc] 10 mg PO DAILY #30 tab 11/17/22 [Rx] cefUROXime axetiL [Ceftin] 500 mg PO BID 3 Days #6 tab 11/17/22 [Rx] lisinopriL [Zestril] 10 mg PO DAILY #30 tab 11/17/22 [Rx] predniSONE 10 mg PO DIRECTED #40 tab 11/17/22 [Rx] Follow up Appointment(s)/Referral(s): Andrzej Wheeler MD [Primary Care Provider] - 1-2 days (WednesdayNovember 20, 10:10 we recommend to check your potassium level with your doctor in 2-3 days ) Mayur Roche MD [STAFF PHYSICIAN] - 1 Week (November 26, 2:30) César Baxter MD [REFERRING] - 2 Weeks Juliocesar Last DO [STAFF PHYSICIAN] - 1 Week (office will call you with appt time) [facility] [NON-STAFF] - Ambulatory/Diagnostic Orders: Basic Metabolic Panel [LAB.AMB] Time Frame: 3 Days, Location: None Selected Patient Instructions/Handouts: Heart Failure (DC), Pneumonia (DC) Activity/Diet/Wound Care/Special Instructions: heart healthy diet , low potassium diet (NO banana, no orange) activity is restricted till you see your doctor Discharge Disposition: HOME WITH HOME HEALTH SERVICES
== END 2022-11-17 13:40 | disposition home health service (06) | DRG 291 ==
LOC: EC 10:37 → 3SCARD 13:11
PROVIDERS: ADMIT Internal Medicine; ATTEND Internal Medicine
PROC: 5A09357 Assistance with Respiratory Ventilation, Less than 24 Consecutive Hours, Continuous Positive Airway Pressure (ICD-10-PCS; principal; 2022-11-13)
DX: I11.0 Hypertensive heart disease with heart failure (principal); I50.33 Acute on chronic diastolic (congestive) heart failure; J18.9 Pneumonia, unspecified organism; J96.21 Acute and chronic respiratory failure with hypoxia; J44.0 Chronic obstructive pulmonary disease with (acute) lower respiratory infection; J44.1 Chronic obstructive pulmonary disease with (acute) exacerbation; E87.1 Hypo-osmolality and hyponatremia; I27.21 Secondary pulmonary arterial hypertension; F31.9 Bipolar disorder, unspecified; M41.9 Scoliosis, unspecified; M79.7 Fibromyalgia; Z20.822 Contact with and (suspected) exposure to COVID-19; Z68.29 Body mass index [BMI] 29.0-29.9, adult; E83.52 Hypercalcemia; E87.5 Hyperkalemia; T50.905A Adverse effect of unspecified drugs, medicaments and biological substances, initial encounter; E03.9 Hypothyroidism, unspecified; E04.1 Nontoxic single thyroid nodule; R79.1 Abnormal coagulation profile; E11.9 Type 2 diabetes mellitus without complications; E66.9 Obesity, unspecified; R91.8 Other nonspecific abnormal finding of lung field; Z99.81 Dependence on supplemental oxygen; I34.0 Nonrheumatic mitral (valve) insufficiency; F17.210 Nicotine dependence, cigarettes, uncomplicated; Z71.6 Tobacco abuse counseling; Z79.51 Long term (current) use of inhaled steroids; Z79.890 Hormone replacement therapy; Z79.899 Other long term (current) drug therapy; Z82.49 Family history of ischemic heart disease and other diseases of the circulatory system; Z86.711 Personal history of pulmonary embolism; M48.02 Spinal stenosis, cervical region; M50.30 Other cervical disc degeneration, unspecified cervical region; Z86.010 Personal history of colon polyps; K21.9 Gastro-esophageal reflux disease without esophagitis; K58.9 Irritable bowel syndrome, unspecified; Z98.84 Bariatric surgery status; Z88.5 Allergy status to narcotic agent; Z88.0 Allergy status to penicillin; Z88.2 Allergy status to sulfonamides; Z28.21 Immunization not carried out because of patient refusal
CPT/HCPCS: 36415; 71045; 71275; 80048; 80053; 81001; 82803; 83605; 83735; 83880; 84145; 84484; 85025; 85379; 85610; 85730; 86140; 87449; 87636; 93005; 93306; 94640; 94660; 94760; 96365; 96375; 99285

== ENCOUNTER → 2023-02-10 | Outpatient (CLI) | payer MEDICARE ==
--- NOTE | 2023-02-10 15:17 | BD ---
EXAMINATION TYPE: Axial Bone Density DATE OF EXAM: 02/10/2023 CLINICAL HISTORY: 67 years old Female. ICD-10 CODE: Z78.0 ASYMPTOMATIC [place]AN[place] STATE Height: 58.2 in Weight: 178 lbs FRAX RISK QUESTIONS: History of Fracture in Adulthood: lt wrist fx age 23, lt ankle fx age 66 Secondary Osteoporosis: Current Tobacco Use: yes RISK FACTORS HISTORY OF: History of Wrist Fracture: lt wrist age 23 Family History of Osteoporosis: yes mother and sister Active: very limited Diet low in dairy products/other sources of calcium: yes Postmenopausal woman: partial hysterectomy age 52 Take estrogen and/or progesterone medications: not now How long: took for 4 years Lost more than 2 inches in height since high school: yes 5" Frequent falls: yes due to balance issues Poor Health: yes MEDICATIONS: Thyroid Medications: yes Which medication: Levothyroxine How Lon+ years Additional Medications: calcium, vit d, blood pressure meds, heart meds, anxiety meds, depression med s, EXAM MEASUREMENTS: Bone mineral densitometry was performed using the [employer]. Bone mineral density as measured about the Lumbar spine is: ----- L1-L4(G/cm2): 1.300 T Score Values are as follows: ----- L1: -0.6 ----- L2: 1.4 ----- L3: 3.0 ----- L4: -0.1 ----- L1-L4: 1.0 Z Score Values are as follows: ----- L1: 0.5 ----- L2: 2.5 ----- L3: 4.0 ----- L4: 1.0 ----- L1-L4: 2.1 Bone mineral density has: Decreased -9.0% since study of: 10/29/2017 Bone mineral density about the R hip (g/cm2): 0.689 Bone mineral density about the L hip (g/cm2): 0.674 T Score values are as follows: -----R Neck: -2.5 -----L Neck: -2.8 -----R Total: -2.5 -----L Total: -2.6 Z Score values are as follows: -----R Neck: -1.4 -----L Neck: -1.6 -----R Total: -1.7 -----L Total: -1.8 Bone mineral density has: Decreased -17.2% since study of: 10/29/2017 FRAX%s: The graph provided illustrates a 24.4% chance for a major osteoporotic fx and a 9.3% chance f or the hips probability for fx in 10 years time. IMPRESSION: Osteoporosis (T Score less than -2.5). There is increased fracture risk and therapy is usually indicated based on age. Re-Screen 1-2 years. NOTE: T-SCORE=SD OF THE YOUNG ADULT MEAN.
--- NOTE | 2023-02-11 20:30 | MM ---
Reason for Exam: Screening (asymptomatic). Last mammogram was performed 12 year(s) and 4 month(s) ago. Patient History: Menarche at age 13. First Full-Term at age 28. Left ovary removed at age 45. Hysterectomy at age 45. Postmenopausal. Patient used Estrogen for 3 years. Risk Values: Torri 5 year model risk: 2.0%. NCI Lifetime model risk: 7.6%. Prior Study Comparison: No prior studies available for comparison. Tissue Density: There are scattered fibroglandular densities. Findings: Analyzed By CAD. There are benign bilateral vascular calcifications. There is no suspicious group of microcalcifications, significant masses, or other discrete abnormality in either breast. Overall Assessment: Benign, BI-RAD 2 Management: Screening Mammogram of both breasts in 1 year. . Patient should continue monthly self-breast exams. A clinical breast exam by your physician is recommended on an annual basis. This exam should not preclude additional follow-up of suspicious palpable abnormalities. Note on Torri scores and lifetime risk: 1. A Torri score greater than 3% is considered moderate risk. If this is the case, consider specialist referral to assess eligibility for a risk reducing agent. 2. If overall lifetime risk for the development of breast cancer is 20% or higher, the patient may qualify for future screening with alternating mammogram and breast MRI. Electronically signed and approved by: Jomar Urban M.D. Radiologist
== END | disposition home or self-care (01) ==
LOC: RADMAMWWP 13:39
PROVIDERS: ATTEND Family Medicine
DX: Z12.31 Encounter for screening mammogram for malignant neoplasm of breast (principal); M81.0 Age-related osteoporosis without current pathological fracture; M85.89 Other specified disorders of bone density and structure, multiple sites; Z78.0 Asymptomatic menopausal state
CPT/HCPCS: 77063; 77067; 77080

== ENCOUNTER 2023-05-03 14:58 | Inpatient (IN) | payer MEDICARE, OTHER ==
--- NOTE | 2023-05-03 15:43 | ED ---
General Adult HPI - General Source: patient Mode of arrival: wheelchair <Shamar Lorenz - Last Filed: 05/03/23 15:42> <Shaw Patel - Last Filed: 05/03/23 19:50> - General Chief complaint: Shortness of Breath Stated complaint: SOB Time Seen by Provider: 05/03/23 15:42 - History of Present Illness Initial comments: 67-year-old female presenting with chief complaint of shortness of breath and cough. (Shamar Lorenz) This 67-year-old female presents with complaint of cough as well as shortness of breath and chest congestion. She states that this has been progressively worsening over the past 3 weeks. She has tried home nebulized treatments without relief. She does wear oxygen at night for her COPD. She denies any chest pains. She denies any known fevers or chills. She has had a yellowish production with her cough. She denies any leg pain or swelling. She also complains of some diffuse myalgias which do include her left upper back as well as her bilateral neck and entire spine. She states it is worse with certain movements. She denies any other complaints or modifying factors. (Shaw Patel) - Related Data Home Medications Medication Instructions Recorded Confirmed Montelukast [Singulair] 10 mg PO DAILY@1700 12/17/13 05/03/23 busPIRone HCL [Buspar] 30 mg PO BID@0700,169912/17/13 05/03/23 Levothyroxine Sodium [Synthroid] 150 mcg PO DAILY@0700 03/29/20 05/03/23 Budesonide/Formoterol Fumarate 2 puff INHALATION RT-BID@0700,0 06/12/21 05/03/23 [Symbicort 160-4.5 Mcg Inhaler] Famotidine [Pepcid] 20 mg PO BID@0700,169909/03/21 05/03/23 lamoTRIgine [LaMICtal] 100 mg PO BID@0700,169909/03/21 05/03/23 Divalproex ER [Depakote ER] 250 mg PO DAILY@1700 10/07/21 05/03/23 OLANZapine [ZyPREXA] 10 mg PO DAILY@17010/07/21 05/03/23 Tamsulosin [Flomax] 0.4 mg PO DAILY@0700 10/26/21 05/03/23 ALPRAZolam [Xanax] 0.5 mg PO BID PRN 11/13/22 05/03/23 Ferrous Sulfate [Iron (65 MG 325 mg PO DAILY@0700 11/13/22 05/03/23 Elemental)] Ipratropium-Albuterol Nebulize 3 ml INHALATION RT-QID 11/13/22 05/03/23 [Duoneb 0.5 mg-3 mg/3 ml Soln] Metoprolol Tartrate [Lopressor] 25 mg PO BID@0700,1700 11/13/22 05/03/23 Thiamine [Vitamin B-1] 100 mg PO DAILY@1700 11/13/22 05/03/23 Folic Acid 1 mg PO DAILY@1700 05/03/23 05/03/23 Ibandronate Sodium [Boniva] 150 mg PO Q30D 05/03/23 05/03/23 Melatonin 5 mg PO DAILY@1700 05/03/23 05/03/23 amLODIPine [Norvasc] 5 mg PO DAILY@0700 05/03/23 05/03/23 lisinopriL [Zestril] 20 mg PO DAILY@0700 05/03/23 05/03/23 Previous Rx's Medication Instructions Recorded Acetaminophen Tab [Tylenol] 650 mg PO Q6HR PRN tab 11/17/22 Albuterol Inhaler [Ventolin Hfa 2 puff INHALATION RT-QID PRN #1 11/17/22 Inhaler] each Allergies Allergy/AdvReac Type Severity Reaction Status Date / Time codeine Allergy Unknown Verified 05/03/23 18:25 Childhood Penicillins Allergy Rash/Hives Verified 05/03/23 18:25 Sulfa (Sulfonamide Allergy Rash/Hives Verified 05/03/23 18:25 Antibiotics) Review of Systems ROS Other: All systems not noted in ROS Statement are negative. <Shamar Lorenz - Last Filed: 05/03/23 15:42> ROS Other: All systems not noted in ROS Statement are negative. <Shaw Patel - Last Filed: 05/03/23 19:50> ROS Statement: Those systems with pertinent positive or pertinent negative responses have been documented in the HPI. Past Medical History Past Medical History: Asthma, COPD, Diabetes Mellitus, Fibromyalgia, GERD/Reflux, Hypertension, Osteoarthritis (OA), Pneumonia, Pulmonary Embolus (PE), Skin Disorder, Thyroid Disorder Additional Past Medical History / Comment(s): Cervical disc disease/stenosis, scoliosis, recently having numbness/tingling L side of face/neck, recently saw anesthesiology resident for L hemidiaphragmatic elevation-pt states she was told this was probably genetic, recently bronchitis and past bronchitis, pt states recent med change (water pill) d/t electrolyte problem/kidney function being affected, pt states she has had pulmonary emboli, past bilateral lower extremity cellulitis, edema lower extremities, IBS, hemorrhoids, benign colon polyps, sinus problems, UTIs, bacteremia/sepsis, cardiac murmur, past L ankle and L wrist fractures. History of Any Multi-Drug Resistant Organisms: None Reported Past Surgical History: Adenoidectomy, Section, Cholecystectomy, Hysterectomy, Tonsillectomy Additional Past Surgical History / Comment(s): EGD, colonoscopies, gastric bypass, surgery for deviated septum Past Anesthesia/Blood Transfusion Reactions: Previous Problems w/ Anesthesia Additional Past Anesthesia/Blood Transfusion Reaction / Comment(s): itching, some kind of problem after gastric bypass-not sure what happened Past Psychological History: Anxiety, Bipolar, Depression, Panic Disorder Smoking Status: Smoker, current status unknown Past Alcohol Use History: None Reported Past Drug Use History: None Reported - Past Family History Mother Family Medical History: Congestive Heart Failure (CHF), Hypertension Father Additional Family Medical History / Comment(s): Father at the age of 45 yrs d/t having had rheumatic fever as a child and heart valve disease. <Shamar Lorenz - Last Filed: 05/03/23 15:42> General Exam <Shamar Lorenz - Last Filed: 05/03/23 15:42> <Shaw Patle - Last Filed: 05/03/23 19:50> - General Exam Comments Initial Comments: Visual Physical Exam Vital signs reviewed General: Well-appearing, nontoxic, no acute distress. Head: Normocephalic, atraumatic Eyes: PERRLA, EOMI ENT: Airway patent Chest: Nonlabored breathing Skin: No visual rash, normal skin tone Neuro: Alert and oriented 3 Musculoskeletal: No gross abnormalities (Shamar Lorenz) GENERAL: The patient is well nourished and well hydrated. VITAL SIGNS: Heart rate, blood pressure, respiratory rate reviewed as recorded in nurse's notes. EYES: Pupils are round and reactive. Extraocular movements are intact. No conjunctival / lid redness or swelling. ENT: No external evidence of injury, swelling, or ecchymosis. Airway is patent. Throat is clear. NECK: Mild tenderness noted to the neck worse on the right side and worse with movement. No swelling or evidence of injury. No subcutaneous emphysema. Trachea is midline. No thyroid mass. HEART: Regular rate and rhythm. Good peripheral pulses. LUNGS/CHEST: Breath sounds clear and equal bilaterally. No rales, rhonchi, or wh eezes. No ecchymosis, subcutaneous emphysema, or tenderness. ABDOMEN: Abdomen soft without tenderness. No palpable masses or organomegaly. No peritoneal signs. No abdominal wall swelling or ecchymosis. EXTREMITIES: No extremity tenderness. Normal muscle tone and function. No thoracolumbar tenderness. No leg swelling noted. There is some mild tenderness noted throughout the upper and lower back. NEUROLOGIC: Sensation is grossly intact. Cranial nerve exam reveals face is symmetrical, tongue is midline, speech is clear. SKIN: No abrasions or ecchymosis is noted. No induration or masses noted. PSYCHIATRIC: Alert and oriented. Appropriate behavior and judgment. (Shaw Patel) Course Vital Signs 05/03/23 05/03/23 05/03/23 15:27 17:28 18:27 Temperature 98.5 F Pulse Rate 83 67 71 Respiratory 22 18 Rate Blood Pressure 156/83 132/87 143/72 O2 Sat by Pulse 88 L 93 L 95 Oximetry 05/03/23 18:50 Temperature Pulse Rate 72 Respiratory 20 Rate Blood Pressure 148/79 O2 Sat by Pulse 95 Oximetry Medical Decision Making - Lab Data Result diagrams: 05/03/23 17:08 05/03/23 17:08 <Shaw Patel - Last Filed: 05/03/23 19:50> - Medical Decision Making The patient was seen and examined. All diagnostics are reviewed. The EKG shows a normal sinus rhythm at a rate of 73. There is no acute ST elevation noted per my interpretation. There is some inverted T waves in lead 3. Intervals are normal. The chest x-ray does show evidence of a left lower lobe infiltrate per my interpretation and radiology interpretation. The laboratory does show elevation of the white blood cell count and the CO2. Viral panel is ordered and is pending. The patient's oxygenation is 88% upon arrival and she is placed on oxygen. A DuoNeb breathing treatment is ordered. Morphine, solumdrol, Zithromax, Rocephin are all ordered intravenously. It is felt as though the patient would benefit from admission to the hospital due to her pneumonia as well as hypoxia. The exact cause of her myalgias are not definitively determine but she states that these have been present for the last 3 weeks as well. Case is discussed with Dr. Lai from and he agrees with admission. Was pt. sent in by a medical professional or institution (, PA, DOOR CLAMPER, urgent care, hospital, or [facility]...) When possible be specific @ -[No] Did you speak to anyone other than the patient for history (EMS, parent, family, police, friend...)? What history was obtained from this source @ -[No] Did you review nursing and triage notes (agree or disagree)? Why? @ -[I reviewed and agree with nursing and triage notes] Were old charts reviewed (outside hosp., previous admission, EMS record, old EKG, old radiological studies, urgent care reports/EKG's, [facility] records)? Report findings @ -Old records were reviewed and it does appear as though patient was admitted in November for congestive heart failure as well as COPD. Differential Diagnosis (chest pain, altered mental status, abdominal pain women, abdominal pain men, vaginal bleeding, weakness, fever, dyspnea, syncope, headache, dizziness, GI bleed, back pain, seizure, CVA, palpatations, mental health, musculoskeletal)? @ -Pneumonia, bronchitis, COPD exacerbation, diffuse myalgias, CHF, hypoxia, respiratory failure. EKG interpreted by me (3pts min.). @ -[As above] X-rays interpreted by me (1pt min.). @ -As above CT interpreted by me (1pt min.). @ -[None done] U/S interpreted by me (1pt. min.). @ -[None done] What testing was considered but not performed or refused? (CT, X-rays, U/S, labs)? Why? @ -[None] What meds were considered but not given or refused? Why? @ -[None] Did you discuss the management of the patient with other professionals (professionals i.e. , PA, DOOR CLAMPER, lab, RT, psych nurse, renal social worker, armature balancer, teacher, labor relations officer, manager of product)? Give summary @ -Case is discussed with internal medicine. Was smoking cessation discussed for >3mins.? @ -[No] Was critical care preformed (if so, how long)? @ -30 minutes of critical care time is utilized and the treatment of the patient. Were there social determinants of health that impacted care today? How? (Homelessness, low income, unemployed, alcoholism, drug addiction, transportation, low edu. Level, literacy, decrease access to med. care, fdc, rehab)? @ -[No] Was there de-escalation of care discussed even if they declined (Discuss DNR or withdrawal of care, Hospice)? DNR status @ -[No] What co-morbidities impacted this encounter? (DM, HTN, Smoking, COPD, CAD, Cancer, CVA, ARF, Chemo, Hep., AIDS, mental health diagnosis, sleep apnea, morbid obesity)? @ -COPD, congestive heart failure Was patient admitted / discharged? Hospital course, mention meds given and route, prescriptions, significant lab abnormalities, going to OR and other pertinent info. @ -Patient is admitted to the hospital. Undiagnosed new problem with uncertain prognosis? @ -[No] Drug Therapy requiring intensive monitoring for toxicity (Heparin, Nitro, Insulin, Cardizem)? @ -[No] Were any procedures done? @ -[No] Diagnosis/symptom? @ -Pneumonia, COPD exacerbation, leukocytosis, hypoxia, respiratory failure. Acute, or Chronic, or Acute on Chronic? @ -Acute Uncomplicated (without systemic symptoms) or Complicated (systemic symptoms)? @ -Uncomplicated Side effects of treatment? @ -[No] Exacerbation, Progression, or Severe Exacerbation? @ -Severe exacerbation Poses a threat to life or bodily function? How? (Chest pain, USA, SC, pneumonia, PE, COPD, DKA, ARF, appy, cholecystitis, CVA, Diverticulitis, Homicidal, Suicidal, threat to staff... and all critical care pts) @ -Yes, patient is hypoxic with oxygenation of 88% which is potentially life threatening. She also has pneumonia with history of oxygen dependent COPD. The patient later did complain of some pain in the midsternal region. A repeat EKG is done and this shows a normal sinus rhythm at a rate of 68. There is no acute ST or T wave changes noted per my interpretation. The intervals are normal. There may be evidence of left ventricular hypertrophy. Patient is given 2 mg of morphine. Serial troponins are ordered. (Shaw Patel) - Lab Data Lab Results 05/03/23 05/03/23 05/03/23 Range/Units 17:02 17:08 17:08 WBC 17.1 H (3.8-10.6) k/uL RBC 4.59 (3.80-5.40) m/uL Hgb 14.1 (11.4-16.0) gm/dL Hct 42.8 (34.0-46.0) % MCV 93.2 (80.0-100.0) fL MCH 30.6 (25.0-35.0) pg MCHC 32.9 (31.0-37.0) g/dL RDW 12.8 (11.5-15.5) % Plt Count 356 (150-450) k/uL MPV 6.9 Neutrophils % 76 % Lymphocytes % 15 % Monocytes % 6 % Eosinophils % 1 % Basophils % 0 % Neutrophils # 13.0 H (1.3-7.7) k/uL Lymphocytes # 2.5 (1.0-4.8) k/uL Monocytes # 1.1 H (0-1.0) k/uL Eosinophils # 0.2 (0-0.7) k/uL Basophils # 0.1 (0-0.2) k/uL PT 10.1 (10.0-12.5) sec INR 0.9 (<1.2) APTT 27.3 (22.0-30.0) sec Sodium (137-145) mmol/L Potassium (3.5-5.1) mmol/L Chloride (98-107) mmol/L Carbon Dioxide (22-30) mmol/L Anion Gap mmol/L BUN (7-17) mg/dL Creatinine (0.52-1.04) mg/dL Est GFR (CKD-EPI)AfAm (>60 ml/min/1.73 sqM) Est GFR (CKD-EPI)NonAf (>60 ml/min/1.73 sqM) Glucose (74-99) mg/dL Calcium (8.4-10.2) mg/dL Total Bilirubin (0.2-1.3) mg/dL AST (14-36) U/L ALT (4-34) U/L Alkaline Phosphatase (38-126) U/L Troponin I (0.000-0.034) ng/mL NT-Pro-B Natriuret Pep pg/mL Total Protein (6.3-8.2) g/dL Albumin (3.5-5.0) g/dL Influenza Type A (PCR) Not Detected (Not Detectd) Influenza Type B (PCR) Not Detected (Not Detectd) RSV (PCR) Not Detected (Not Detectd) SARS-CoV-2 (PCR) Not Detected (Not Detectd) 05/03/23 05/03/23 Range/Units 17:08 17:08 WBC (3.8-10.6) k/uL RBC (3.80-5.40) m/uL Hgb (11.4-16.0) gm/dL Hct (34.0-46.0) % MCV (80.0-100.0) fL MCH (25.0-35.0) pg MCHC (31.0-37.0) g/dL RDW (11.5-15.5) % Plt Count (150-450) k/uL MPV Neutrophils % % Lymphocytes % % Monocytes % % Eosinophils % % Basophils % % Neutrophils # (1.3-7.7) k/uL Lymphocytes # (1.0-4.8) k/uL Monocytes # (0-1.0) k/uL Eosinophils # (0-0.7) k/uL Basophils # (0-0.2) k/uL PT (10.0-12.5) sec INR (<1.2) APTT (22.0-30.0) sec Sodium 133 L (137-145) mmol/L Potassium 4.8 (3.5-5.1) mmol/L Chloride 97 L (98-107) mmol/L Carbon Dioxide 28 (22-30) mmol/L Anion Gap 8 mmol/L BUN 20 H (7-17) mg/dL Creatinine 0.68 (0.52-1.04) mg/dL Est GFR (CKD-EPI)AfAm >90 (>60 ml/min/1.73 sqM) Est GFR (CKD-EPI)NonAf >90 (>60 ml/min/1.73 sqM) Glucose 107 H (74-99) mg/dL Calcium 10.0 (8.4-10.2) mg/dL Total Bilirubin 0.4 (0.2-1.3) mg/dL AST 28 (14-36) U/L ALT 20 (4-34) U/L Alkaline Phosphatase 101 (38-126) U/L Troponin I <0.012 (0.000-0.034) ng/mL NT-Pro-B Natriuret Pep 1740 pg/mL Total Protein 6.3 (6.3-8.2) g/dL Albumin 3.8 (3.5-5.0) g/dL Influenza Type A (PCR) (Not Detectd) Influenza Type B (PCR) (Not Detectd) RSV (PCR) (Not Detectd) SARS-CoV-2 (PCR) (Not Detectd) Disposition <Shamar Lorenz - Last Filed: 05/03/23 15:42> Is patient prescribed a controlled substance at d/c from ED?: No Time of Disposition: 18:30 Decision Date: 05/03/23 Decision Time: 18:30 <Shaw Patel - Last Filed: 05/03/23 19:50> Clinical Impression: Pneumonia, COPD exacerbation, Hypoxia, Respiratory failure, Leukocytosis, Chest pain, Myalgia Disposition: ADMITTED IP TO THIS HOSP Condition: Fair
--- NOTE | 2023-05-03 16:38 | XR ---
EXAMINATION TYPE: XR chest 2V DATE OF EXAM: 05/03/2023 COMPARISON: 11/16/2022 INDICATION: Difficulty breathing short of breath TECHNIQUE: Frontal and lateral views of the chest are obtained. FINDINGS: The heart size is normal. The pulmonary vasculature is somewhat prominent. Minimal right pleural effusion is present. On the lateral projection a posterior left lower lobe inf iltrate appears to be present. IMPRESSION: 1. Clinical correlation recommended for left lower lobe atelectasis or pneumonia. 2. Minimal right pleural effusion
[2023-05-03] MEDS ORDERED: methylPREDNISolone SOD SUCCI 125 MG/2 ML VIAL IV STA (17:19)
[2023-05-03] MEDS ORDERED: MORPHINE SULFATE 4 MG/ML SYRINGE IV ONE (17:20)
[2023-05-03] MEDS ORDERED: IPRATROPIUM-ALBUTEROL 3 ML NEB INHALATION STA (17:20)
[2023-05-03 17:21] LABS: Basophils # (A) 0.1 k/uL (0-0.2); Basophils % (A) 0 %; Eosinophils # (A) 0.2 k/uL (0-0.7); Eosinophils % (A) 1 %; HCT 42.8 % (34.0-46.0); HGB 14.1 gm/dL (11.4-16.0); Lymphocytes # (A) 2.5 k/uL (1.0-4.8); Lymphocytes % (A) 15 %; MCH 30.6 pg (25.0-35.0); MCHC 32.9 g/dL (31.0-37.0); MCV 93.2 fL (80.0-100.0); Mean Platelet Volume 6.9; Monocytes # (A) 1.1 k/uL (0-1.0); Monocytes % (A) 6 %; Neutrophils % (A) 76 %; Platelet Count 356 k/uL (150-450); RBC 4.59 m/uL (3.80-5.40); RDW 12.8 % (11.5-15.5); WBC 17.1 k/uL (3.8-10.6)
[2023-05-03] MEDS ORDERED: AZITHROMYCIN 500 MG in SODIUM CHLORIDE 0.9% 250 ML IVPB STA (17:21)
[2023-05-03 17:31] LABS: ALT 20 U/L (4-34); AST 28 U/L (14-36); African American GFR (CKD) >90 (>60 ml/min/1.73 sqM); Albumin 3.8 g/dL (3.5-5.0); Alkaline Phosphatase 101 U/L (38-126); Anion Gap 8 mmol/L; Blood Urea Nitrogen 20 mg/dL (7-17); Carbon Dioxide 28 mmol/L (22-30); Chloride 97 mmol/L (98-107); Glucose 107 mg/dL (74-99); Non-African American GFR(CKD) >90 (>60 ml/min/1.73 sqM); Potassium 4.8 mmol/L (3.5-5.1); Sodium 133 mmol/L (137-145); Total Bilirubin 0.4 mg/dL (0.2-1.3); Total Protein 6.3 g/dL (6.3-8.2)
[2023-05-03 17:32] LABS: INR 0.9 (<1.2); Partial Thromboplastin Time 27.3 sec (22.0-30.0); Prothrombin Time 10.1 sec (10.0-12.5)
[2023-05-03] MEDS ORDERED: PNEUMONIA PROTOCOL UTILIZED 1 EACH MISC PO PRN (17:32)
[2023-05-03] MEDS ORDERED: ACETAMINOPHEN TAB 325 MG TAB PO PRN (17:32)
[2023-05-03 17:40] LABS: NT-Pro-B-Type Natriuretic Pept 1740 pg/mL
[2023-05-03] MEDS ORDERED: NON FORMULARY DRUG (Ibandronate Sodium [Boniva] 150 MG Tablet) PO SCH (19:15)
[2023-05-03] MEDS ORDERED: MORPHINE SULFATE 2 MG/ML SYRINGE IVP STA (19:43)
[2023-05-03] MEDS: SYMBICORT 160-4.5 MCG INHALER INHALATION SCH (20:04)
[2023-05-03] MEDS: IPRATROPIUM-ALBUTEROL 3 ML NEB INHALATION PRN (20:04)
[2023-05-03] MEDS: ALPRAZolam 0.5 MG TAB PO PRN (23:04)
[2023-05-04] MEDS: ACETAMINOPHEN TAB 325 MG TAB PO PRN ×2 (02:21→08:55)
[2023-05-04] MEDS ORDERED: MORPHINE SULFATE 2 MG/ML SYRINGE IVP STA (04:42)
--- NOTE | 2023-05-04 05:47 | P.CNPUL ---
History of Present Illness Consult date: 05/04/23 Requesting physician: Shaw Patel Reason for consult: pneumonia Chief complaint: Progressively worsening shortness breath over the last 3 weeks History of present illness: I am seeing this patient in consultation today 05/04/2023 after she presented with progressively worsening shortness of breath over the last 3 weeks. Patient is a 67-year-old female with past medical history significant for oxygen dependent COPD, chronic tobacco dependence, anxiety/depression, bipolar disorder, diabetes mellitus, fibromyalgia, hypertension, hypothyroidism. Her primary care provider is Dr. Andrzej Wheeler. Patient does follow in the pulmonary office with Dr. Dunham for management of her COPD/ILD. Patient states that she's had progressively worsening shortness breath over the last 2-3 weeks. This is been accompanied with a congested cough. Patient denies any fevers, chills, myalgias, hemoptysis. Denies sick contacts or recent travel. Denies chest pain, heart palpitations, syncope, lower extremity edema, orthopnea. She is currently sitting up in bed, on 3 L/m nasal cannula, in no acute distress. Chest x-ray on arrival showed a left lower lobe infiltrate versus atelectasis. There was also a small right pleural effusion. CBC on arrival shows leukocytosis with a WBC count of 17.1, hemoglobin 14.1, hematocrit 42.8, platelets 356. BMP on arrival showed a sodium 133, potassium 4.8, chloride 97, serum bicarb 28, BUN 20, creatinine 0.68, glucose 107. Troponins less than 0.0123. NT proBNP was mildly elevated at 1740. Negative for influenza, RSV, COVID-19. Patient was started on a combination of azithromycin and Rocephin. Has remained afebrile. Patient is admitted to the general medical floor. Review of Systems REVIEW OF SYSTEMS: CONSTITUTIONAL: Denies any recent significant weight loss or weight gain. EYES: Denies change in vision. EARS, NOSE, MOUTH, THROAT: Denies headaches, denies sore throat. CARDIOVASCULAR: Denies chest pain, palpitations or syncopal episodes. RESPIRATORY: See HPI GASTROINTESTINAL: Denies change in appetite, abdominal pain, nausea and vomiting, or diarrhea GENITOURINARY: Denies hematuria, denies infections. Admits urinary frequency but no dysuria MUSKULOSKELETAL: Admits chronic pain which is nonfocal. INTEGUMENTARY: Denies rash, denies eczema. NEUROLOGICAL: Denies recent memory loss, no recent seizure activity. PSYCHIATRIC: Denies anxiety, denies depression. HEMATOLOGIC/LYMPHATIC: Denies anemia, denies enlarged lymph node Past Medical History Past Medical History: Asthma, Heart Failure, COPD, Diabetes Mellitus, Fibromyalgia, GERD/Reflux, Hypertension, Osteoarthritis (OA), Pneumonia, Pulmonary Embolus (PE), Skin Disorder, Thyroid Disorder Additional Past Medical History / Comment(s): Spinal Stenosis, Cervical disc disease/stenosis, scoliosis, recently having numbness/tingling L side of face/neck, recently saw branch coordinator for L hemidiaphragmatic elevation-pt states she was told this was probably genetic, recently bronchitis and past bronchitis, pt states recent med change (water pill) d/t electrolyte problem/kidney function being affected, pt states she has had pulmonary emboli, past bilateral lower extremity cellulitis, edema lower extremities, IBS, hemorrhoids, benign colon polyps, sinus problems, UTIs, bacteremia/sepsis, cardiac murmur, past L ankle and L wrist fractures. History of Any Multi-Drug Resistant Organisms: None Reported Past Surgical History: Section, Cholecystectomy, Hysterectomy, Tonsillectomy Additional Past Surgical History / Comment(s): EGD, colonoscopies, gastric bypass, surgery for deviated septum Past Anesthesia/Blood Transfusion Reactions: Previous Problems w/ Anesthesia Additional Past Anesthesia/Blood Transfusion Reaction / Comment(s): itching after hysterectomy, some kind of breathing problem after gastric bypass-not sure what happened Past Psychological History: Anxiety, Bipolar, Depression, Panic Disorder Additional Psychological History / Comment(s): pt currently lives at home with her , she primarily get around with a wheelchair and is able to transfer short distances with a walker, pt was discharged from [facility] in june and they had home care at that time Smoking Status: Current every day smoker Past Alcohol Use History: None Reported Additional Past Alcohol Use History / Comment(s): Pt started smoking in 1986 and quit when she went into [facility] 08/2021 Past Drug Use History: None Reported - Past Family History Mother Family Medical History: Congestive Heart Failure (CHF), Hypertension Father Additional Family Medical History / Comment(s): Father at the age of 45 yrs d/t having had rheumatic fever as a child and heart valve disease. Medications and Allergies Home Medications Medication Instructions Recorded Confirmed Type Montelukast [Singulair] 10 mg PO DAILY@1700 12/17/13 05/03/23 History busPIRone HCL [Buspar] 30 mg PO BID@0700,17012/17/13 05/03/23 History Levothyroxine Sodium [Synthroid] 150 mcg PO DAILY@0700 03/29/20 05/03/23 History Budesonide/Formoterol Fumarate 2 puff INHALATION RT-BID@0700,169906/12/21 05/03/23 History [Symbicort 160-4.5 Mcg Inhaler] Famotidine [Pepcid] 20 mg PO BID@0700,17009/03/21 05/03/23 History lamoTRIgine [LaMICtal] 100 mg PO BID@0700,169909/03/21 05/03/23 History Divalproex ER [Depakote ER] 250 mg PO DAILY@169910/07/21 05/03/23 History OLANZapine [ZyPREXA] 10 mg PO DAILY@169910/07/21 05/03/23 History Tamsulosin [Flomax] 0.4 mg PO DAILY@0700 10/26/21 05/03/23 History ALPRAZolam [Xanax] 0.5 mg PO BID PRN 11/13/22 05/03/23 History Ferrous Sulfate [Iron (65 MG 325 mg PO DAILY@0711/13/22 05/03/23 History Elemental)] Ipratropium-Albuterol Nebulize 3 ml INHALATION RT-QID 11/13/22 05/03/23 History [Duoneb 0.5 mg-3 mg/3 ml Soln] Metoprolol Tartrate [Lopressor] 25 mg PO BID@0700,1700 11/13/22 05/03/23 History Thiamine [Vitamin B-1] 100 mg PO DAILY@169911/13/22 05/03/23 History Acetaminophen Tab [Tylenol] 650 mg PO Q6HR PRN tab 11/17/22 05/03/23 Rx Albuterol Inhaler [Ventolin Hfa 2 puff INHALATION RT-QID PRN #1 11/17/22 05/03/23 Rx Inhaler] each Folic Acid 1 mg PO DAILY@1700 05/03/23 05/03/23 History Ibandronate Sodium [Boniva] 150 mg PO Q30D 05/03/23 05/03/23 History Melatonin 5 mg PO DAILY@1700 05/03/23 05/03/23 History amLODIPine [Norvasc] 5 mg PO DAILY@0700 05/03/23 05/03/23 History lisinopriL [Zestril] 20 mg PO DAILY@0700 05/03/23 05/03/23 History Allergies Allergy/AdvReac Type Severity Reaction Status Date / Time codeine Allergy Unknown Verified 05/03/23 18:25 Childhood Penicillins Allergy Rash/Hives Verified 05/03/23 18:25 Sulfa (Sulfonamide Allergy Rash/Hives Verified 05/03/23 18:25 Antibiotics) Physical Exam Vitals: Vital Signs Temp Pulse Pulse Resp BP BP Pulse Ox 05/04/23 02:00 98.5 F 64 16 115/66 94 L 05/03/23 22:30 98.9 F 65 16 120/62 91 L 05/03/23 21:34 98.7 F 72 20 111/57 92 L 05/03/23 20:15 78 05/03/23 20:07 78 05/03/23 19:45 71 22 133/63 92 L 05/03/23 18:50 72 20 148/79 95 05/03/23 18:27 71 18 143/72 95 05/03/23 17:28 67 132/87 93 L 05/03/23 15:27 98.5 F 83 22 156/83 88 L Intake and Output 05/03/23 05/03/23 05/04/23 14:59 22:59 06:59 Other: Voiding Method Toilet Bedside Commode Diaper Weight 80.739 kg GENERAL EXAM: Alert, 67-year-old white female, comfortable in no apparent distress. HEAD: Normocephalic and atraumatic EYES: Normal reaction of pupils, equal size. NOSE: Clear with pink turbinates. THROAT: No erythema or exudates. NECK: No masses, no JVD. CHEST: No chest wall deformity. LUNGS: Equal air entry with diminished bibasilar lung sounds. No wheezes, rhonchi, crackles. On 3 L/m nasal cannula. No conversational dyspnea or accessory muscle use.. CVS: S1 and S2 normal with no audible murmur, regular rhythm. No extra heart sounds ABDOMEN: No hepatosplenomegaly, active bowel sounds, no guarding or rigidity. SPINE: No scoliosis or deformity SKIN: No rashes CENTRAL NERVOUS SYSTEM: No focal deficits, tone is normal in all 4 extremities. EXTREMITIES: There is no peripheral edema, clubbing, or cyanosis. Peripheral pulses are intact. Results - Laboratory Findings CBC and BMP: 05/03/23 17:08 05/03/23 17:08 PT/INR, D-dimer PT 10.1 sec (10.0-12.5) 05/03/23 17:08 INR 0.9 (<1.2) 05/03/23 17:08 Abnormal lab findings: Abnormal Labs 05/03/23 05/03/23 17:08 17:08 WBC 17.1 H Neutrophils # 13.0 H Monocytes # 1.1 H Sodium 133 L Chloride 97 L BUN 20 H Glucose 107 H - Diagnostic Findings Chest x-ray: image reviewed Assessment and Plan Assessment: Acute on chronic hypoxemic respiratory failure, currently on 3 L/m nasal cannula, possibly secondary to left lower lobe community-acquired pneumonia. Chest x-ray on arrival showed a left lower lobe infiltrate versus atelectasis. There was also a small to moderate size right pleural effusion. Leukocytosis Chronic obstructive pulmonary disease, stable History of interstitial lung disease Chronic tobacco dependence Benign essential hypertension History of bipolar disorder Diabetes mellitus Fibromyalgia Hypothyroidism Plan: Patient's medications, labs, chest x-ray reviewed Continue supplemental oxygen Continue combination of Symbicort, DuoNeb inhalations. Continue empiric antibiotics and check procalcitonin level Negative for influenza, RSV, COVID-19 We will continue to follow I have personally seen and examined the patient, performed the documentation and the assessment and plan as written. Number of minutes spent on the visit:20 Time with Patient: Greater than 30
[2023-05-04 08:01] LABS: Appearance,Urine Clear (Clear); Bacteria,Urine Rare /hpf; Bilirubin,Urine Negative (Negative); Blood,Urine Negative (Negative); Color,Urine Yellow; Glucose,Urine (UA) Negative (Negative); Hyaline Casts,Urine 3 /lpf (0-2); Ketones,Urine Negative (Negative); Leukocyte Esterase,Urine Small (Negative); Mucus,Urine Rare /hpf; Nitrite,Urine Negative (Negative); PH, Urine 5.5 (5.0-8.0); Protein,Urine Negative (Negative); RBC,Urine 1 /hpf (0-5); Specific Gravity,Urine 1.021 (1.001-1.035); Squamous Epithelial Cell,Urine 3 /hpf (0-4); Urobilinogen,Urine <2.0 mg/dL (<2.0); WBC,Urine 11 /hpf (0-5)
[2023-05-04] MEDS: IPRATROPIUM-ALBUTEROL 3 ML NEB INHALATION PRN ×4 (08:31→20:37)
[2023-05-04] MEDS: SYMBICORT 160-4.5 MCG INHALER INHALATION SCH ×2 (08:31→20:37)
[2023-05-04] MEDS: FERROUS SULFATE 325 MG TAB PO SCH (08:44)
[2023-05-04] MEDS: busPIRone HCl 10 MG TAB PO SCH ×2 (08:44→17:58)
[2023-05-04] MEDS: ENOXAPARIN 40 MG/0.4 ML SYRINGE SQ SCH (08:44)
[2023-05-04] MEDS: lisinopriL 20 MG TAB PO SCH (08:44)
[2023-05-04] MEDS: amLODIPine 5 MG TAB PO SCH (08:44)
[2023-05-04] MEDS: LEVOTHYROXINE 75 MCG TAB PO SCH (08:44)
[2023-05-04] MEDS: lamoTRIgine 100 MG TAB PO SCH ×2 (08:44→17:58)
[2023-05-04] MEDS: TAMSULOSIN 0.4 MG CAP.ER.24H PO SCH (08:45)
[2023-05-04] MEDS: METOPROLOL TARTRATE 25 MG TAB PO SCH ×2 (08:45→18:29)
[2023-05-04] MEDS: FAMOTIDINE 20 MG TAB PO SCH ×2 (08:45→17:58)
[2023-05-04] MEDS: ALPRAZolam 0.5 MG TAB PO PRN ×2 (08:55→21:07)
--- NOTE | 2023-05-04 08:55 | XR ---
EXAMINATION TYPE: XR chest 2V DATE OF EXAM: 05/04/2023 COMPARISON: 05/03/2023 TECHNIQUE: PA and lateral views submitted. HISTORY: Cough FINDINGS: Bilateral consolidation and small effusion. Atherosclerotic change aorta. Limited inspiration with in terstitial pattern. Bilateral pleural effusion. Degenerative changes of the spine. Underlying COPD. IMPRESSION: 1. Bilateral pleural effusion and basilar infiltrate. Correlate for pneumonia.
[2023-05-04] MEDS: AZITHROMYCIN 500 MG in SODIUM CHLORIDE 0.9% 250 ML IVPB SCH (09:29)
[2023-05-04] MEDS ORDERED: MELATONIN 5 MG TABLET PO SCH (17:00)
[2023-05-04] MEDS: FOLIC ACID 1 MG TAB PO SCH (17:58)
[2023-05-04] MEDS: KETOROLAC 15 MG/ML 1 ML VIAL IVP PRN (17:58)
[2023-05-04] MEDS: OLANZapine 10 MG TAB PO SCH (17:59)
[2023-05-04] MEDS: DIVALPROEX ER 250 MG TAB.ER.24H PO SCH (17:59)
[2023-05-04] MEDS: THIAMINE 100 MG TAB PO SCH (18:29)
[2023-05-04] MEDS: MONTELUKAST 10 MG TAB PO SCH (18:29)
[2023-05-04] MEDS: MELATONIN 5 MG TABLET PO SCH (21:07)
--- NOTE | 2023-05-04 22:45 | P.HPIM ---
History of Present Illness H&P Date: 05/04/23 Chief Complaint: Shortness of breath Patient is a 67-year-old female with a known history of COPD on home oxygen, fibromyalgia, history of PE, hypothyroidism, scoliosis, cervical degenerative disc disease, anxiety/depression bipolar disorder and currently everyday smoker presents to ER with complaints of worsening shortness of breath for the past 3 weeks. Patient states that she has been having cough with yellowish sputum production. States that she had fever at home. Denies any nausea or vomiting abdominal pain or diarrhea. Chest x-ray on admission showed clinical correlation recommended for left lower lobe atelectasis or pneumonia. Mild right pleural effusion. On admission patient was hypoxic with pulse ox 88%. Chest x-ray this morning showed bilateral pleural effusion and basilar infiltrate. Correlate for pneumonia. Laboratory data showed WBC 17.1 hemoglobin 14.1 and platelets 356 Sodium 133 potassium 4.8 chloride 97 bicarb is 28 BUN 20 and creatinine 0.68 and 11 years are not elevated. Troponin x3 negative. proBNP is 1740, procalcitonin level is 0.33 Urine Legionella antigen negative. COVID-19 PCR not detected. Review of Systems Constitutional: Patient states that she has subjective fevers. Generalized weakness. Abdomen: Patient denied any nausea or vomiting or abd. pain Cardiovascular: Patient denies any chest pain. Patient does have short of breath no palpitations. No leg swelling Respiratory: patient does have cough with yellowish sputum production and shortness of breath Neurologic: Patient denied any numbness or tingling headache. Musculoskeletal: Patient denies any complaints of joint swelling or deformity. Complaints of neck pain and lower back pain. Skin: Negative Psychiatric: Negative Endocrine: No heat or cold intolerance. No recent weight gain. Genitourinary: No dysuria or hematuria. All other 14 point ROS negative except the above Past Medical History Past Medical History: Asthma, Heart Failure, COPD, Diabetes Mellitus, Fibromyalgia, GERD/Reflux, Hypertension, Osteoarthritis (OA), Pneumonia, Pulmonary Embolus (PE), Skin Disorder, Thyroid Disorder Additional Past Medical History / Comment(s): Spinal Stenosis, Cervical disc disease/stenosis, scoliosis, recently having numbness/tingling L side of face/neck, recently saw flight engineer for L hemidiaphragmatic elevation-pt states she was told this was probably genetic, recently bronchitis and past bronchitis, pt states recent med change (water pill) d/t electrolyte problem/kidney function being affected, pt states she has had pulmonary emboli, past bilateral lower extremity cellulitis, edema lower extremities, IBS, hemorrhoids, benign colon polyps, sinus problems, UTIs, bacteremia/sepsis, cardiac murmur, past L ankle and L wrist fractures. History of Any Multi-Drug Resistant Organisms: None Reported Past Surgical History: Section, Cholecystectomy, Hysterectomy, Tonsillectomy Additional Past Surgical History / Comment(s): EGD, colonoscopies, gastric bypass, surgery for deviated septum Past Anesthesia/Blood Transfusion Reactions: Previous Problems w/ Anesthesia Additional Past Anesthesia/Blood Transfusion Reaction / Comment(s): itching after hysterectomy, some kind of breathing problem after gastric bypass-not sure what happened Past Psychological History: Anxiety, Bipolar, Depression, Panic Disorder Additional Psychological History / Comment(s): pt currently lives at home with her , she primarily get around with a wheelchair and is able to transfer short distances with a walker, pt was discharged from [facility] in june and they had home care at that time Smoking Status: Current every day smoker Past Alcohol Use History: None Reported Additional Past Alcohol Use History / Comment(s): Pt started smoking in 1986 and quit when she went into [facility] 08/2021 Past Drug Use History: None Reported - Past Family History Mother Family Medical History: Congestive Heart Failure (CHF), Hypertension Father Additional Family Medical History / Comment(s): Father at the age of 45 yrs d/t having had rheumatic fever as a child and heart valve disease. Medications and Allergies Home Medications Medication Instructions Recorded Confirmed Type Montelukast [Singulair] 10 mg PO DAILY@1700 12/17/13 05/03/23 History busPIRone HCL [Buspar] 30 mg PO BID@0700,169912/17/13 05/03/23 History Levothyroxine Sodium [Synthroid] 150 mcg PO DAILY@0700 03/29/20 05/03/23 History Budesonide/Formoterol Fumarate 2 puff INHALATION RT-BID@0700,1700 06/12/21 05/03/23 History [Symbicort 160-4.5 Mcg Inhaler] Famotidine [Pepcid] 20 mg PO BID@0700,1700 09/03/21 05/03/23 History lamoTRIgine [LaMICtal] 100 mg PO BID@0700,1700 09/03/21 05/03/23 History Divalproex ER [Depakote ER] 250 mg PO DAILY@1700 10/07/21 05/03/23 History OLANZapine [ZyPREXA] 10 mg PO DAILY@1700 10/07/21 05/03/23 History Tamsulosin [Flomax] 0.4 mg PO DAILY@0700 10/26/21 05/03/23 History ALPRAZolam [Xanax] 0.5 mg PO BID PRN 11/13/22 05/03/23 History Ferrous Sulfate [Iron (65 MG 325 mg PO DAILY@0700 11/13/22 05/03/23 History Elemental)] Ipratropium-Albuterol Nebulize 3 ml INHALATION RT-QID 11/13/22 05/03/23 History [Duoneb 0.5 mg-3 mg/3 ml Soln] Metoprolol Tartrate [Lopressor] 25 mg PO BID@0700,17011/13/22 05/03/23 History Thiamine [Vitamin B-1] 100 mg PO DAILY@17011/13/22 05/03/23 History Acetaminophen Tab [Tylenol] 650 mg PO Q6HR PRN tab 11/17/22 05/03/23 Rx Albuterol Inhaler [Ventolin Hfa 2 puff INHALATION RT-QID PRN #1 11/17/22 05/03/23 Rx Inhaler] each Folic Acid 1 mg PO DAILY@17005/03/23 05/03/23 History Ibandronate Sodium [Boniva] 150 mg PO Q30D 05/03/23 05/03/23 History Melatonin 5 mg PO DAILY@17005/03/23 05/03/23 History amLODIPine [Norvasc] 5 mg PO DAILY@0700 05/03/23 05/03/23 History lisinopriL [Zestril] 20 mg PO DAILY@0700 05/03/23 05/03/23 History Allergies Allergy/AdvReac Type Severity Reaction Status Date / Time codeine Allergy Unknown Verified 05/03/23 18:25 Childhood Penicillins Allergy Rash/Hives Verified 05/03/23 18:25 Sulfa (Sulfonamide Allergy Rash/Hives Verified 05/03/23 18:25 Antibiotics) Physical Exam Vitals: Vital Signs Temp Pulse Pulse Resp BP BP Pulse Ox 05/04/23 11:40 98.9 F 57 L 23 120/69 05/04/23 11:38 76 05/04/23 11:26 72 05/04/23 08:59 97.9 F 67 12 125/65 93 L 05/04/23 08:46 80 05/04/23 08:32 80 05/04/23 02:00 98.5 F 64 16 115/66 94 L 05/03/23 22:30 98.9 F 65 16 120/62 91 L 05/03/23 21:34 98.7 F 72 20 111/57 92 L 05/03/23 20:15 78 05/03/23 20:07 78 05/03/23 19:45 71 22 133/63 92 L 05/03/23 18:50 72 20 148/79 95 05/03/23 18:27 71 18 143/72 95 05/03/23 17:28 67 132/87 93 L 05/03/23 15:27 98.5 F 83 22 156/83 88 L Intake and Output 05/03/23 05/04/23 05/04/23 22:59 06:59 14:59 Other: Voiding Method Toilet Bedside Commode Bedside Commode Diaper Diaper # Voids 1 Weight 80.739 kg PHYSICAL EXAMINATION: Patient is lying in the bed comfortably, no acute distress, awake alert and oriented.. HEENT: Normocephalic. Neck is supple. Pupils reactive. Nostrils clear. Oral cavity is moist. Neck reveals no JVD, carotid bruits, or thyromegaly. CHEST EXAMINATION: Trachea is central. Symmetrical expansion. Left basilar crackles and bibasilar diminished sounds. No wheezing or rhonchi. Nonlabored breathing.. CARDIAC: Normal S1, S2 with no gallops. No murmurs ABDOMEN: Soft. Bowel sounds present. Nontender. No organomegaly. No abdominal bruits. Extremities: reveal no edema. No clubbing or cyanosis Neurologically awake, alert, oriented x3 with well-coordinated movements. No focal deficits noted Skin: No rash or skin lesions. Psychiatric: Coperative. Nonsuicidal, anxious. Musculoskeletal: No joint swelling or deformity. Normal range of motion. Results CBC & Chem 7: 05/03/23 17:08 05/03/23 17:08 Labs: Abnormal Lab Results - Last 24 Hours (Table) 05/03/23 05/03/23 05/04/23 Range/Units 17:08 17:08 06:13 WBC 17.1 H (3.8-10.6) k/uL Neutrophils # 13.0 H (1.3-7.7) k/uL Monocytes # 1.1 H (0-1.0) k/uL Sodium 133 L (137-145) mmol/L Chloride 97 L (98-107) mmol/L BUN 20 H (7-17) mg/dL Glucose 107 H (74-99) mg/dL Procalcitonin 0.33 H (0.02-0.09) ng/mL Ur Leukocyte Esterase (Negative) Urine WBC (0-5) /hpf Urine Bacteria (None) /hpf Hyaline Casts (0-2) /lpf Urine Mucus (None) /hpf 05/04/23 Range/Units 07:25 WBC (3.8-10.6) k/uL Neutrophils # (1.3-7.7) k/uL Monocytes # (0-1.0) k/uL Sodium (137-145) mmol/L Chloride (98-107) mmol/L BUN (7-17) mg/dL Glucose (74-99) mg/dL Procalcitonin (0.02-0.09) ng/mL Ur Leukocyte Esterase Small H (Negative) Urine WBC 11 H (0-5) /hpf Urine Bacteria Rare H (None) /hpf Hyaline Casts 3 H (0-2) /lpf Urine Mucus Rare H (None) /hpf Thrombosis Risk Factor Assmnt - DVT/VTE Prophylaxis DVT/VTE Prophylaxis: Pharmacologic Prophylaxis ordered Assessment and Plan Assessment: Worsening shortness of breath likely secondary to left lower lobe pneumonia. Acute on chronic hypoxemic respiratory failure. Patient is currently requiring 3 L oxygen via nasal cannula. Mild right pleural effusion COPD not in exacerbation Fibromyalgia Hypertension Hypothyroidism Scoliosis and cervical disc degenerative disease Anxiety/depression bipolar disorder Currently everyday smoker DVT prophylaxis with Lovenox subcu daily Plan: Patient will be continued on oxygen supplementation. Continue with antibiotics ceftriaxone and azithromycin and follow-up sputum culture and blood culture reports. Continue with home blood pressure medications and pain management with Tylenol. Was given morphine IV last night. Continue with DuoNebs, Symbicort and follow-up closely.. Appreciate pulmonary recommendations. Smoking cessation has been counseled extensively. Time with Patient: Greater than 30
[2023-05-05] MEDS: KETOROLAC 15 MG/ML 1 ML VIAL IVP PRN (01:45)
[2023-05-05] MEDS: ENOXAPARIN 40 MG/0.4 ML SYRINGE SQ SCH (08:26)
[2023-05-05] MEDS: FAMOTIDINE 20 MG TAB PO SCH (08:27)
[2023-05-05] MEDS: FERROUS SULFATE 325 MG TAB PO SCH (08:27)
[2023-05-05] MEDS: amLODIPine 5 MG TAB PO SCH (08:27)
[2023-05-05] MEDS: lamoTRIgine 100 MG TAB PO SCH ×2 (08:27→16:43)
[2023-05-05] MEDS: LEVOTHYROXINE 75 MCG TAB PO SCH (08:27)
[2023-05-05] MEDS: busPIRone HCl 10 MG TAB PO SCH ×2 (08:27→16:43)
[2023-05-05] MEDS: lisinopriL 20 MG TAB PO SCH (08:27)
--- NOTE | 2023-05-05 08:27 | XR ---
EXAMINATION TYPE: XR chest 1V portable DATE OF EXAM: 05/05/2023 COMPARISON: 05/04/2023 HISTORY: Cough TECHNIQUE: Single frontal view of the chest is obtained. FINDINGS: Bilateral lower lobe infiltrate and small effusion with elevated hemidiaphragms stable. No overt failure. No pneumothorax. Atherosclerotic change aorta. Diffuse osteopenia. IMPRESSION: Stable bilateral lower lobe infiltrate and small pleural effusion.
[2023-05-05] MEDS: METOPROLOL TARTRATE 25 MG TAB PO SCH ×2 (08:28→16:43)
[2023-05-05] MEDS: ALPRAZolam 0.5 MG TAB PO PRN ×2 (08:28→17:43)
[2023-05-05] MEDS: TAMSULOSIN 0.4 MG CAP.ER.24H PO SCH (08:28)
[2023-05-05] MEDS ORDERED: RX INFO: IV CONTRAST WAS GIVEN 1 EACH MISC MISCELLANE PRN (08:42)
--- NOTE | 2023-05-05 08:42 | P.PN ---
Subjective Progress Note Date: 05/05/23 I am seeing this patient in consultation today 05/04/2023 after she presented with progressively worsening shortness of breath over the last 3 weeks. Patient is a 67-year-old female with past medical history significant for oxygen dependent COPD, chronic tobacco dependence, anxiety/depression, bipolar di sorder, diabetes mellitus, fibromyalgia, hypertension, hypothyroidism. Her primary care provider is Dr. Andrzej Wheeler. Patient does follow in the pulmonary office with Dr. Dunham for management of her COPD/ILD. Patient states that she's had progressively worsening shortness breath over the last 2-3 weeks. This is been accompanied with a congested cough. Patient denies any fevers, chills, myalgias, hemoptysis. Denies sick contacts or recent travel. Denies chest pain, heart palpitations, syncope, lower extremity edema, orthopnea. She is currently sitting up in bed, on 3 L/m nasal cannula, in no acute distress. Chest x-ray on arrival showed a left lower lobe infiltrate versus atelectasis. There was also a small right pleural effusion. CBC on arrival shows leukocytosis with a WBC count of 17.1, hemoglobin 14.1, hematocrit 42.8, platelets 356. BMP on arrival showed a sodium 133, potassium 4.8, chloride 97, serum bicarb 28, BUN 20, creatinine 0.68, glucose 107. Troponins less than 0.0123. NT proBNP was mildly elevated at 1740. Negative for influenza, RSV, COVID-19. Patient was started on a combination of azithromycin and Rocephin. Has remained afebrile. Patient is admitted to the general medical floor. The patient is seen today 05/05/2023 in follow-up on the regular medical floor. She is currently sitting up in bed. Awake and alert in no acute distress. She is maintaining good O2 saturations in the 90s on 3 L/m per nasal cannula. She's been afebrile. Hemodynamically stable. Pro-calcitonin 0.33. Urine legionella antigen was negative. Follow-up chest x-ray reveals stable bilateral lower lobe infiltrate with small effusion. She is continued on ceftriaxone and azithromycin. She remains on Symbicort, DuoNeb inhalations. Lovenox for DVT prophylaxis. Objective - Vital Signs Vital signs: Vital Signs Temp 97.8 F 05/05/23 07:30 Pulse 55 L 10/18/23 07:30 Resp 14 05/05/23 07:30 BP 122/69 05/05/23 07:30 Pulse Ox 98 05/05/23 07:30 FiO2 Intake & Output 05/04/23 05/05/23 05/05/23 18:59 06:59 18:59 Intake Total 590 Balance 590 Intake: Oral 590 Other: Voiding Method Bedside Commode Bedside Commode Diaper Diaper # Voids 3 2 - Exam GENERAL EXAM: Alert, very pleasant 67-year-old female, on 3 L nasal cannula, comfortable in no apparent distress. HEAD: Normocephalic. EYES: Normal reaction of pupils, equal size. NOSE: Clear with pink turbinates. THROAT: No erythema or exudates. NECK: No masses, no JVD. CHEST: No chest wall deformity. LUNGS: Equal air entry with few scattered rhonchi bilaterally, diminished. CVS: S1 and S2 normal with no audible murmur, regular rhythm. ABDOMEN: No hepatosplenomegaly, normal bowel sounds, no guarding or rigidity. SPINE: No scoliosis or deformity SKIN: No rashes CENTRAL NERVOUS SYSTEM: No focal deficits, tone is normal in all 4 extremities. EXTREMITIES: There is no peripheral edema. No clubbing, no cyanosis. Peripheral pulses are intact. - Labs CBC & Chem 7: 05/03/23 17:08 05/03/23 17:08 Labs: Abnormal Lab Results - Last 24 Hours (Table) 05/04/23 Range/Units 06:13 Procalcitonin 0.33 H (0.02-0.09) ng/mL Microbiology - Last 24 Hours (Table) 05/03/23 18:30 Blood Culture - Preliminary Blood 05/03/23 18:45 Blood Culture - Preliminary Blood Assessment and Plan Assessment: Acute on chronic hypoxemic respiratory failure, currently on 3 L/m nasal cannula, possibly secondary to left lower lobe community-acquired pneumonia. Chest x-ray on arrival showed a left lower lobe infiltrate versus atelectasis. There was also a small to moderate size right pleural effusion. Procalcitonin 0.33. Follow-up chest x-ray reveals similar findings continued on azithromycin and ceftriaxone Leukocytosis, secondary to above Chronic obstructive pulmonary disease, stable History of interstitial lung disease Chronic tobacco dependence Benign essential hypertension History of bipolar disorder Diabetes mellitus Fibromyalgia Hypothyroidism Plan: The patient was seen and evaluated Currently stable and on 3 L nasal cannula Chest x-ray and medications reviewed We'll order a computed tomography scan with contrast Continue the current treatment plan We will continue to follow This patient was seen independently by the nurse practitioner I have personally seen and examined the patient, performed the documentation and the assessment and plan as written. Number of minutes spent on the visit: 25.
[2023-05-05] MEDS: SYMBICORT 160-4.5 MCG INHALER INHALATION SCH ×2 (08:47→15:40)
[2023-05-05] MEDS: IPRATROPIUM-ALBUTEROL 3 ML NEB INHALATION PRN ×2 (08:47→15:40)
[2023-05-05] MEDS: AZITHROMYCIN 500 MG in SODIUM CHLORIDE 0.9% 250 ML IVPB SCH (09:05)
[2023-05-05 11:03] LABS: Basophils # (A) 0.07 X 10*3/uL (0.00-0.10); Basophils % (A) 0.6 %; Eosinophils # (A) 0.11 X 10*3/uL (0.04-0.35); HCT 40.3 % (37.2-46.3); HGB 12.8 d/dL (12.0-15.0); Lymphocytes # (A) 3.44 X 10*3/uL (0.90-5.00); Lymphocytes % (A) 31.5 %; MCHC 31.8 d/dL (32.0-37.0); MCV 94.6 FL (80.0-97.0); Mean Platelet Volume 9.2 FL (9.5-12.2); Monocytes # (A) 0.86 X 10*3/uL (0.20-1.00); Monocytes % (A) 7.9 %; NRBC Per 100 WBC 0 X 10*3/uL (0.00-0.01); Neutrophils # (A) 6.38 X 10*3/uL (1.80-7.70); Neutrophils % (A) 58.5 %; Platelet Count 331 X 10*3/uL (140-440); RBC 4.26 X 10*6/uL (4.10-5.20); RDW 13.2 % (11.5-14.5); WBC 10.92 X 10*3/uL (4.50-10.00)
[2023-05-05 11:14] LABS: BUN/Creat Ratio 34.56 Ratio (12.00-20.00); Blood Urea Nitrogen 31.1 mg/dL (9.0-27.0); Calcium 9.3 mg/dL (8.7-10.3); Carbon Dioxide 28.8 mmol/L (21.6-31.8); Chloride 98 mmol/L (96-109); Glucose 84 mg/dL (70-110); Potassium 5.1 mmol/L (3.5-5.5); Sodium 135 mmol/L (135-145)
--- NOTE | 2023-05-05 11:37 | CDI ---
Documentation Clarification Form Date: 05/05/2023 11:05:43 AM From: Gina Anderson RN,CCDS Admit Date: 05/03/2023 05:36:00 PM Patient Name: Haydee Mcpherson Visit Number: [id number] Discharge Date: ATTENTION: The Clinical Documentation Specialists (CDI) and [facility] Coding Staff appreciate your assistance in clarifying documentation. Please respond to the clarification below the line at the bottom and electronically sign. The CDI & [facility] Coding staff will review the response and follow-up if needed. Please note: Queries are made part of the Legal Health Record. If you have any questions, please contact the author of this message via ITS. Dr. Edelmira Sood Your patient has the documented diagnosis of unspecified CHF in the past medical history. Additional information regarding the [type, acuity] of CHF is requested. History/Risk Factors: Asthma, COPD, Diabetes Mellitus, Fibromyalgia, Hypertension, Thyroid Disorder, Current every day smoker Clinical Indicators: 67-year-old female present with shortness of breath. No leg swelling. VS/Pulse OX: 156/83 83 22 98.5 88 % RA BNP: 1740 EKG shows a normal sinus rhythm at a rate of 73. Echocardiogram Results: (11/14/2022) EF 55%, trace to mild mitral regurgitation, mild tricuspid regurgitation Chest X- Ray: show evidence of a left lower lobe infiltrate. There was also a small to moderate size right pleural effusion. 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 Dictated By: Richie Merchant MD Signed By: <Electronically signed by Richie Merchant> 05/06/23 1302 DD/ 1255 TD/TT:05/06/23 1255 MTDD
[2023-05-05] MEDS: DIVALPROEX ER 250 MG TAB.ER.24H PO SCH (16:42)
[2023-05-05] MEDS: FOLIC ACID 1 MG TAB PO SCH (16:42)
[2023-05-05] MEDS: THIAMINE 100 MG TAB PO SCH (16:42)
[2023-05-05] MEDS: OLANZapine 10 MG TAB PO SCH (16:43)
[2023-05-05] MEDS: MONTELUKAST 10 MG TAB PO SCH (16:43)
[2023-05-05] MEDS: ACETAMINOPHEN TAB 325 MG TAB PO PRN (16:46)
--- NOTE | 2023-05-05 18:06 | CT ---
EXAMINATION TYPE: CT chest w con DATE OF EXAM: 05/05/2023 COMPARISON: 11/13/2022 HISTORY: 67-year-old female Abnormal CXR TECHNIQUE: Contiguous axial scanning of the chest after the administration of 100 ml mL of Isovue 300 . Coronal/sagittal reconstructions performed. CT DLP: 303.20mGycm. Automatic exposure control utilized for a dose reduction. FINDINGS: A 2.3 cm heterogeneous enhancing nodule right lobe of the thyroid gland, unchanged from 07/21/2019 sugg esting a benign etiology. Heart is borderline enlarged without pericardial effusion. LAD and circumflex coronary calcifications are present. Ectatic ascending aorta 3.8 cm. Mild atherosclerotic arch calcifications within metatarsal some branc oral anatomy. Borderline enlarged 1.2 cm lower right paratracheal lymph node remains unchanged suggesting a benign etiology. Mildly enlarged caliber to the main right and left pulmonary arteries up to 2.8 cm suggesting underly ing pulmonary hypertension. There is small right and trace left pleural effusions. Prominent patchy bibasilar opacities. There ap pears to be fluid within basilar segmental bronchi and more distal branches of the right lower lobe. 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 Cholecystectomy clips. Dextroconvex scoliosis thoracic spine. Moderate to advanced degenerative disc disease throughout. Nor mal variant sternal foramen. IMPRESSION: 1. Small right and trace left pleural effusions. There is prominent patchy bibasilar airspace disease . Given fluid filling right lower lobe segmental and more distal bronchi, correlate for possible infe ctious or aspiration pneumonitis. 2. Mild CHF would be the alternative consideration given borderline cardiomegaly and pulmonary arteri al hypertension
[2023-05-05] MEDS: MELATONIN 5 MG TABLET PO SCH (20:16)
--- NOTE | 2023-05-05 21:31 | P.PN ---
Subjective Progress Note Date: 05/05/23 Patient is a 67-year-old female with a known history of COPD on home oxygen, fibromyalgia, history of PE, hypothyroidism, scoliosis, cervical degenerative disc disease, anxiety/depression bipolar disorder and currently everyday smoker presents to ER with complaints of worsening shortness of breath for the past 3 weeks. Patient states that she has been having cough with yellowish sputum production. States that she had fever at home. Denies any nausea or vomiting abdominal pain or diarrhea. Chest x-ray on admission showed clinical correlation recommended for left lower lobe atelectasis or pneumonia. Mild right pleural effusion. On admission patient was hypoxic with pulse ox 88%. Chest x-ray this morning showed bilateral pleural effusion and basilar infiltrate. Correlate for pneumonia. Laboratory data showed WBC 17.1 hemoglobin 14.1 and platelets 356 Sodium 133 potassium 4.8 chloride 97 bicarb is 28 BUN 20 and creatinine 0.68 and 11 years are not elevated. Troponin x3 negative. proBNP is 1740, procalcitonin level is 0.33 Urine Legionella antigen negative. COVID-19 PCR not detected. 05/05/2023 Patient is lying in the bed. Awake alert and oriented x3. Breathing status much improved today. Minimal right basilar crackles and coarse breath sounds. Patient is on 3 L oxygen via nasal cannula., Which is her home regimen. Patient has been afebrile. Cough with minimal sputum production. No nausea vomiting or abdominal pain or diarrhea. Symptomatically improving. Laboratories show WBC trending down to 10.9 hemoglobin 12.[address] thorax was ordered to evaluate for masslike consolidation. Pulmonary is on board. Current medications reviewed. Objective - Vital Signs Vital signs: Vital Signs Temp 97.4 F L 05/05/23 19:36 Pulse 59 L 05/05/23 19:36 Resp 18 05/05/23 19:36 BP 104/59 05/05/23 19:36 Pulse Ox 96 05/05/23 19:36 FiO2 Intake & Output 05/05/23 05/05/23 05/06/23 06:59 18:59 06:59 Intake Total 590 240 Balance 590 240 Intake: Oral 590 240 Other: Voiding Method Bedside Commode Bedside Commode Diaper Diaper # Voids 2 1 - Exam PHYSICAL EXAMINATION: Patient is lying in the bed comfortably, no acute distress, awake alert and oriented.. HEENT: Normocephalic. Neck is supple. Pupils reactive. Nostrils clear. Oral cavity is moist. Neck reveals no JVD, carotid bruits, or thyromegaly. CHEST EXAMINATION: Trachea is central. Symmetrical expansion. rt basilar crackles and bibasilar diminished sounds. No wheezing or rhonchi. Nonlabored breathing.. CARDIAC: Normal S1, S2 with no gallops. No murmurs ABDOMEN: Soft. Bowel sounds present. Nontender. No organomegaly. No abdominal bruits. Extremities: reveal no edema. No clubbing or cyanosis Neurologically awake, alert, oriented x3 with well-coordinated movements. No focal deficits noted Skin: No rash or skin lesions. Psychiatric: Coperative. Nonsuicidal, anxious. Musculoskeletal: No joint swelling or deformity. Normal range of motion. - Labs CBC & Chem 7: 05/05/23 06:31 05/05/23 06:31 Labs: Abnormal Lab Results - Last 24 Hours (Table) 05/05/23 05/05/23 Range/Units 06:31 06:31 WBC 10.92 H (4.50-10.00) X 10*3/uL MCHC 31.8 L (32.0-37.0) d/dL MPV 9.2 L (9.5-12.2) FL BUN 31.1 H (9.0-27.0) mg/dL BUN/Creatinine Ratio 34.56 H (12.00-20.00) Ratio Microbiology - Last 24 Hours (Table) 05/04/23 16:47 Gram Stain - Preliminary Sputum Sputum Culture - Preliminary 05/03/23 18:30 Blood Culture - Preliminary Blood 05/03/23 18:45 Blood Culture - Preliminary Blood Assessment and Plan Assessment: Worsening shortness of breath likely secondary to left lower lobe pneumonia. Acute on chronic hypoxemic respiratory failure. Patient is currently requiring 3 L oxygen via nasal cannula. Mild right pleural effusion Chronic CHF with diastolic dysfunction. COPD not in exacerbation Fibromyalgia Hypertension Hypothyroidism Scoliosis and cervical disc degenerative disease Anxiety/depression bipolar disorder Currently everyday smoker DVT prophylaxis with Lovenox subcu daily Plan: Patient will be continued on oxygen supplementation. Continue with antibiotics ceftriaxone and azithromycin and follow-up sputum culture .blood culture negative. Continue with home blood pressure medications and pain management with Tylenol. Continue with DuoNebs, Symbicort and follow-up closely.. Appreciate pulmonary recommendations.Follow-up CT thorax. Smoking cessation has been counseled extensively. Anticipate discharge in next 24 hours Time with Patient: Greater than 30
[2023-05-06 06:31] LABS: Basophils % (A) 0 %; Eosinophils # (A) 0.2 k/uL (0-0.7); Eosinophils % (A) 2 %; HCT 42.4 % (34.0-46.0); HGB 13.7 gm/dL (11.4-16.0); Lymphocytes # (A) 2.1 k/uL (1.0-4.8); Lymphocytes % (A) 22 %; MCH 30.7 pg (25.0-35.0); MCHC 32.4 g/dL (31.0-37.0); MCV 94.8 fL (80.0-100.0); Mean Platelet Volume 7.1; Monocytes # (A) 0.6 k/uL (0-1.0); Monocytes % (A) 6 %; Neutrophils # (A) 6.7 k/uL (1.3-7.7); Neutrophils % (A) 69 %; Platelet Count 377 k/uL (150-450); RBC 4.47 m/uL (3.80-5.40); RDW 12.8 % (11.5-15.5); WBC 9.8 k/uL (3.8-10.6)
[2023-05-06 06:45] LABS: African American GFR (CKD) >90 (>60 ml/min/1.73 sqM); Anion Gap 5 mmol/L; Blood Urea Nitrogen 24 mg/dL (7-17); Calcium 9.7 mg/dL (8.4-10.2); Carbon Dioxide 32 mmol/L (22-30); Chloride 98 mmol/L (98-107); Glucose 79 mg/dL (74-99); Non-African American GFR(CKD) >90 (>60 ml/min/1.73 sqM); Potassium 5.2 mmol/L (3.5-5.1); Sodium 135 mmol/L (137-145)
[2023-05-06] MEDS: ENOXAPARIN 40 MG/0.4 ML SYRINGE SQ SCH (08:13)
[2023-05-06] MEDS: lisinopriL 20 MG TAB PO SCH (08:13)
[2023-05-06] MEDS: TAMSULOSIN 0.4 MG CAP.ER.24H PO SCH (08:14)
[2023-05-06] MEDS: METOPROLOL TARTRATE 25 MG TAB PO SCH (08:14)
[2023-05-06] MEDS: FERROUS SULFATE 325 MG TAB PO SCH (08:14)
[2023-05-06] MEDS: LEVOTHYROXINE 75 MCG TAB PO SCH (08:14)
[2023-05-06] MEDS: lamoTRIgine 100 MG TAB PO SCH (08:14)
[2023-05-06] MEDS: amLODIPine 5 MG TAB PO SCH (08:14)
[2023-05-06] MEDS: busPIRone HCl 10 MG TAB PO SCH (08:14)
[2023-05-06] MEDS: AZITHROMYCIN 500 MG in SODIUM CHLORIDE 0.9% 250 ML IVPB SCH (08:15)
[2023-05-06] MEDS: SYMBICORT 160-4.5 MCG INHALER INHALATION SCH (08:29)
[2023-05-06] MEDS: IPRATROPIUM-ALBUTEROL 3 ML NEB INHALATION PRN ×2 (08:29→12:10)
[2023-05-06] MEDS: ALPRAZolam 0.5 MG TAB PO PRN (08:36)
--- NOTE | 2023-05-06 08:57 | P.PN ---
Subjective Progress Note Date: 05/06/23 I am seeing this patient in consultation today 05/04/2023 after she presented with progressively worsening shortness of breath over the last 3 weeks. Patient is a 67-year-old female with past medical history significant for oxygen dependent COPD, chronic tobacco dependence, anxiety/depression, bipolar di sorder, diabetes mellitus, fibromyalgia, hypertension, hypothyroidism. Her primary care provider is Dr. Andrzej Wheeler. Patient does follow in the pulmonary office with Dr. Dunham for management of her COPD/ILD. Patient states that she's had progressively worsening shortness breath over the last 2-3 weeks. This is been accompanied with a congested cough. Patient denies any fevers, chills, myalgias, hemoptysis. Denies sick contacts or recent travel. Denies chest pain, heart palpitations, syncope, lower extremity edema, orthopnea. She is currently sitting up in bed, on 3 L/m nasal cannula, in no acute distress. Chest x-ray on arrival showed a left lower lobe infiltrate versus atelectasis. There was also a small right pleural effusion. CBC on arrival shows leukocytosis with a WBC count of 17.1, hemoglobin 14.1, hematocrit 42.8, platelets 356. BMP on arrival showed a sodium 133, potassium 4.8, chloride 97, serum bicarb 28, BUN 20, creatinine 0.68, glucose 107. Troponins less than 0.0123. NT proBNP was mildly elevated at 1740. Negative for influenza, RSV, COVID-19. Patient was started on a combination of azithromycin and Rocephin. Has remained afebrile. Patient is admitted to the general medical floor. The patient is seen today 05/05/2023 in follow-up on the regular medical floor. She is currently sitting up in bed. Awake and alert in no acute distress. She is maintaining good O2 saturations in the 90s on 3 L/m per nasal cannula. She's been afebrile. Hemodynamically stable. Pro-calcitonin 0.33. Urine legionella antigen was negative. Follow-up chest x-ray reveals stable bilateral lower lobe infiltrate with small effusion. She is continued on ceftriaxone and azithromycin. She remains on Symbicort, DuoNeb inhalations. Lovenox for DVT prophylaxis. The patient is seen today 05/06/2023 in follow-up on the regular medical floor. She is awake and alert in no acute distress. Denies any worsening shortness of breath, cough or congestion. She is a bit anxious. She is maintaining good O2 saturations in the 90s on 3 L/m per nasal cannula. Afebrile, hemodynamically stable. CAT scan of the chest revealed small right and trace left pleural effusions. Some prominent patchy bibasilar airspace disease. Mild CHF with borderline cardiomegaly. White count 9.8. Hemoglobin 13.7. Platelets 377. Sodium 135. Potassium 5.2. Bicarb 32. BUN 24. Creatinine 0.62. She is currently on ceftriaxone and azithromycin. Continued on DuoNeb inhalations and Symbicort. Objective - Vital Signs Vital signs: Vital Signs Temp 97.5 F L 05/06/23 08:00 Pulse 76 05/06/23 08:44 Resp 22 05/06/23 08:00 BP 165/73 05/06/23 08:00 Pulse Ox 97 05/06/23 08:30 FiO2 Intake & Output 05/05/23 05/06/23 05/06/23 18:59 06:59 18:59 Intake Total 240 400 Balance 240 400 Intake: Oral 240 400 Other: Voiding Method Bedside Commode Bedside Commode Diaper Diaper # Voids 1 1 - Exam GENERAL EXAM: Alert, 67-year-old female, on 3 L nasal cannula, sitting up in bed, comfortable in no apparent distress. HEAD: Normocephalic. EYES: Normal reaction of pupils, equal size. NOSE: Clear with pink turbinates. THROAT: No erythema or exudates. NECK: No masses, no JVD. CHEST: No chest wall deformity. LUNGS: Equal air entry with few scattered rhonchi bilaterally, diminished. CVS: S1 and S2 normal with no audible murmur, regular rhythm. ABDOMEN: No hepatosplenomegaly, normal bowel sounds, no guarding or rigidity. SPINE: No scoliosis or deformity SKIN: No rashes CENTRAL NERVOUS SYSTEM: No focal deficits, tone is normal in all 4 extremities. EXTREMITIES: There is no peripheral edema. No clubbing, no cyanosis. Lilian pheral pulses are intact. - Labs CBC & Chem 7: 05/06/23 05:41 05/06/23 05:41 Labs: Abnormal Lab Results - Last 24 Hours (Table) 05/05/23 05/05/23 05/06/23 Range/Units 06:31 06:31 05:41 WBC 10.92 H (4.50-10.00) X 10*3/uL MCHC 31.8 L (32.0-37.0) d/dL MPV 9.2 L (9.5-12.2) FL Sodium 135 L (137-145) mmol/L Potassium 5.2 H (3.5-5.1) mmol/L Carbon Dioxide 32 H (22-30) mmol/L BUN 31.1 H 24 H (9.0-27.0) mg/dL BUN/Creatinine Ratio 34.56 H (12.00-20.00) Ratio Microbiology - Last 24 Hours (Table) 05/03/23 18:30 Blood Culture - Preliminary Blood 05/03/23 18:45 Blood Culture - Preliminary Blood 05/04/23 16:47 Gram Stain - Preliminary Sputum Sputum Culture - Preliminary Assessment and Plan Assessment: Acute on chronic hypoxemic respiratory failure, currently on 3 L/m nasal cannu la, possibly secondary to left lower lobe community-acquired pneumonia. Chest x-ray on arrival showed a left lower lobe infiltrate versus atelectasis. There was also a small to moderate size right pleural effusion. Procalcitonin 0.33. Follow-up chest x-ray reveals similar findings continued on azithromycin and ceftriaxone. CAT scan of the chest revealed small right and trace left pleural effusions. Some prominent patchy bibasilar airspace disease. Mild CHF with borderline cardiomegaly. Leukocytosis, secondary to above Chronic obstructive pulmonary disease, stable History of interstitial lung disease Chronic tobacco dependence Benign essential hypertension History of bipolar disorder Diabetes mellitus Fibromyalgia Hypothyroidism Plan: The patient was seen and evaluated Computed tomography scan, labs and medications reviewed Discontinue ceftriaxone and azithromycin Initiate doxycycline for 5 days Continue DuoNeb inhalations, Symbicort Evaluated for possible home oxygen She is cleared for discharge from the pulmonary standpoint Follow-up in our office in 1 week This patient was seen independently by the nurse practitioner I have personally seen and examined the patient, performed the documentation and the assessment and plan as written. Number of minutes spent on the visit: 22.
[2023-05-06] MEDS ORDERED: FAMOTIDINE 20 MG TAB PO SCH (09:00)
[2023-05-06] MEDS ORDERED: DOXYCYCLINE 100 MG CAP PO SCH (09:00)
[2023-05-06] MEDS: KETOROLAC 15 MG/ML 1 ML VIAL IVP PRN (10:31)
[2023-05-06 12:00] VITALS: BP 132/65; RESP 18; TEMP 98.3
[2023-05-06 12:21] VITALS: PULSE 72
--- NOTE | 2023-05-06 13:02 | P.DS ---
Providers Date of admission: 05/03/23 17:36 Expected date of discharge: 05/06/23 Attending physician: Saeed Lai MD Consults: 05/03/23 17:32 Consult Physician Routine Consulting Provider: Shaw Brannon Consult Reason/Comments: pneumonia, resp failure, copd Do you want consulting provider notified?: Yes Primary care physician: Andrzej Wheeler Hospital Course: Discharge diagnoses; Worsening shortness of breath likely secondary to left lower lobe pneumonia. Acute on chronic hypoxemic respiratory failure. Mild right pleural effusion Chronic CHF with diastolic dysfunction. COPD not in exacerbation Fibromyalgia Hypertension Hypothyroidism Scoliosis and cervical disc degenerative disease Anxiety/depression bipolar disorder Hospital course; Patient is a 67-year-old female with a known history of COPD on home oxygen, fibromyalgia, history of PE, hypothyroidism, scoliosis, cervical degenerative disc disease, anxiety/depression bipolar disorder and currently everyday smoker presents to ER with complaints of worsening shortness of breath for the past 3 weeks. Patient states that she has been having cough with yellowish sputum production. States that she had fever at home. Denies any nausea or vomiting abdominal pain or diarrhea. Chest x-ray on admission showed clinical correlation recommended for left lower lobe atelectasis or pneumonia. Mild right pleural effusion. On admission patient was hypoxic with pulse ox 88%. Chest x-ray this morning showed bilateral pleural effusion and basilar infiltrate. Correlate for pneumonia. Laboratory data showed WBC 17.1 hemoglobin 14.1 and platelets 356 Sodium 133 potassium 4.8 chloride 97 bicarb is 28 BUN 20 and creatinine 0.68 and 11 years are not elevated. Troponin x3 negative. proBNP is 1740, procalcitonin level is 0.33 Urine Legionella antigen negative. COVID-19 PCR not detected. 05/05/2023 Patient is lying in the bed. Awake alert and oriented x3. Breathing status much improved today. Minimal right basilar crackles and coarse breath sounds. Patient is on 3 L oxygen via nasal cannula., Which is her home regimen. Patient has been afebrile. Cough with minimal sputum production. No nausea vomiting or abdominal pain or diarrhea. Symptomatically improving. Laboratories show WBC trending down to 10.9 hemoglobin 12.[address] thorax was ordered to evaluate for masslike consolidation. Pulmonary is on board. 05/06. Patient seen and examined. States she is doing much better, back to her baseline O2 requirements. Being discharged on oral antibiotics. Patient cleared by pulmonology PHYSICAL EXAMINATION: GENERAL: The patient is alert and oriented x3, not in any acute distress. Well developed, well nourished. HEENT: Pupils are round and equally reacting to light. EOMI. No scleral icterus. No conjunctival pallor. Normocephalic, atraumatic. No pharyngeal erythema. No thyromegaly. CARDIOVASCULAR: S1 and S2 present. No murmurs, rubs, or gallops. PULMONARY: Coarse breath some bilaterally, no wheeze ABDOMEN: Soft, nontender, nondistended, normoactive bowel sounds. No palpable organomegaly. MUSCULOSKELETAL: No joint swelling or deformity. EXTREMITIES: No cyanosis, clubbing, or pedal edema. NEUROLOGICAL: Gross neurological examination did not reveal any focal deficits. SKIN: No rashes. Dictation was produced using Fluency dictation software. please excuse any grammatical, word or spelling errors. Patient Condition at Discharge: Fair Plan - Discharge Summary Discharge Rx Participant: No New Discharge Prescriptions: New cefUROXime axetiL [Ceftin] 500 mg PO BID 5 Days #10 tab Doxycycline [Vibramycin] 100 mg PO BID 5 Days #10 cap Continue busPIRone HCL [Buspar] 30 mg PO BID@0700,1700 Montelukast [Singulair] 10 mg PO DAILY@1700 Levothyroxine Sodium [Synthroid] 150 mcg PO DAILY@0700 OLANZapine [ZyPREXA] 10 mg PO DAILY@1700 Divalproex ER [Depakote ER] 250 mg PO DAILY@1700 Thiamine [Vitamin B-1] 100 mg PO DAILY@1700 Metoprolol Tartrate [Lopressor] 25 mg PO BID@0700,1700 Ipratropium-Albuterol Nebulize [Duoneb 0.5 mg-3 mg/3 ml Soln] 3 ml INHALATION RT-QID ALPRAZolam [Xanax] 0.5 mg PO BID PRN PRN Reason: Anxiety lisinopriL [Zestril] 20 mg PO DAILY@0700 Budesonide/Formoterol Fumarate [Symbicort 160-4.5 Mcg Inhaler] 2 puff INHALATION RT-BID@0700,1700 Famotidine [Pepcid] 20 mg PO BID@0700,1700 lamoTRIgine [LaMICtal] 100 mg PO BID@0700,1700 Tamsulosin [Flomax] 0.4 mg PO DAILY@0700 Ferrous Sulfate [Iron (65 MG Elemental)] 325 mg PO DAILY@0700 Acetaminophen Tab [Tylenol] 650 mg PO Q6HR PRN tab PRN Reason: Mild Pain Or Fever > 100.5 Albuterol Inhaler [Ventolin Hfa Inhaler] 2 puff INHALATION RT-QID PRN #1 each PRN Reason: Shortness Of Breath Melatonin 5 mg PO DAILY@1700 amLODIPine [Norvasc] 5 mg PO DAILY@0700 Ibandronate Sodium [Boniva] 150 mg PO Q30D Folic Acid 1 mg PO DAILY@1700 Discharge Medication List Montelukast [Singulair] 10 mg PO DAILY@17012/17/13 [History] busPIRone HCL [Buspar] 30 mg PO BID@0700,1700 12/17/13 [History] Levothyroxine Sodium [Synthroid] 150 mcg PO DAILY@0700 03/29/20 [History] Budesonide/Formoterol Fumarate [Symbicort 160-4.5 Mcg Inhaler] 2 puff INHALATION RT-BID@0700,1700 06/12/21 [History] Famotidine [Pepcid] 20 mg PO BID@0700,17009/03/21 [History] lamoTRIgine [LaMICtal] 100 mg PO BID@0700,17009/03/21 [History] Divalproex ER [Depakote ER] 250 mg PO DAILY@17010/07/21 [History] OLANZapine [ZyPREXA] 10 mg PO DAILY@17010/07/21 [History] Tamsulosin [Flomax] 0.4 mg PO DAILY@0700 10/26/21 [History] ALPRAZolam [Xanax] 0.5 mg PO BID PRN 11/13/22 [History] Ferrous Sulfate [Iron (65 MG Elemental)] 325 mg PO DAILY@0700 11/13/22 [History] Ipratropium-Albuterol Nebulize [Duoneb 0.5 mg-3 mg/3 ml Soln] 3 ml INHALATION RT-QID 11/13/22 [History] Metoprolol Tartrate [Lopressor] 25 mg PO BID@0700,1700 11/13/22 [History] Thiamine [Vitamin B-1] 100 mg PO DAILY@1700 11/13/22 [History] Acetaminophen Tab [Tylenol] 650 mg PO Q6HR PRN tab 11/17/22 [Rx] Albuterol Inhaler [Ventolin Hfa Inhaler] 2 puff INHALATION RT-QID PRN #1 each 11/17/22 [Rx] Folic Acid 1 mg PO DAILY@17005/03/23 [History] Ibandronate Sodium [Boniva] 150 mg PO Q30D 05/03/23 [History] Melatonin 5 mg PO DAILY@17005/03/23 [History] amLODIPine [Norvasc] 5 mg PO DAILY@0700 05/03/23 [History] lisinopriL [Zestril] 20 mg PO DAILY@0700 05/03/23 [History] cefUROXime axetiL [Ceftin] 500 mg PO BID 5 Days #10 tab 05/05/23 [Rx] Doxycycline [Vibramycin] 100 mg PO BID 5 Days #10 cap 05/06/23 [Rx] Follow up Appointment(s)/Referral(s): Andrzej Wheeler MD [Primary Care Provider] - 05/10/23 11:00 am Shaw Brannon DO [Doctor of Osteopathic Medicine] - 1 Week [facility], [NON-STAFF] - As Needed (Must have appointment with Dr. Wheeler before will sign for [facility] ) Discharge Disposition: HOME SELF-CARE
== END 2023-05-06 14:24 | disposition home or self-care (01) | DRG 193 ==
LOC: EC 14:58 → 5NMEDONC 17:36
PROVIDERS: ADMIT Internal Medicine; ATTEND Internal Medicine
DX: J18.9 Pneumonia, unspecified organism (principal); J96.21 Acute and chronic respiratory failure with hypoxia; J44.0 Chronic obstructive pulmonary disease with (acute) lower respiratory infection; I50.32 Chronic diastolic (congestive) heart failure; M79.7 Fibromyalgia; M41.9 Scoliosis, unspecified; M50.30 Other cervical disc degeneration, unspecified cervical region; I11.0 Hypertensive heart disease with heart failure; F41.0 Panic disorder [episodic paroxysmal anxiety]; F31.9 Bipolar disorder, unspecified; F17.200 Nicotine dependence, unspecified, uncomplicated; E11.9 Type 2 diabetes mellitus without complications; K21.9 Gastro-esophageal reflux disease without esophagitis; M19.90 Unspecified osteoarthritis, unspecified site; E03.9 Hypothyroidism, unspecified; Z20.822 Contact with and (suspected) exposure to COVID-19; Z88.0 Allergy status to penicillin; Z87.01 Personal history of pneumonia (recurrent); Z88.2 Allergy status to sulfonamides; Z88.5 Allergy status to narcotic agent; Z99.81 Dependence on supplemental oxygen; Z98.84 Bariatric surgery status; Z86.711 Personal history of pulmonary embolism; Z79.899 Other long term (current) drug therapy; Z79.890 Hormone replacement therapy; Z79.51 Long term (current) use of inhaled steroids
CPT/HCPCS: 36415; 71045; 71046; 71260; 80048; 80053; 81001; 83880; 84145; 84484; 85025; 85610; 85730; 87040; 87070; 87205; 87449; 87636; 93005; 94640; 94760; 96365; 96366; 96367; 96375; 96376; 99291

== ENCOUNTER → 2023-06-18 | Outpatient (CLI) | payer MEDICARE, OTHER ==
--- NOTE | 2023-06-18 14:08 | US ---
EXAMINATION TYPE: US thyroid st tissue head/neck DATE OF EXAM: 06/18/2023 COMPARISON: None CLINICAL INDICATION: Female, 68 years old with history of E04.1 thyroid nodule; Follow up thyroid nod ule. GLAND SIZE: Right Lobe: 3.7 x 2.7 x 2.3 cm Overall Parenchyma: heterogenous Left Lobe: 2.4 x 0.9 x 0.9 cm Overall Parenchyma: heterogenous Isthmus Thickness: 0.5 cm NODULES RIGHT: # of nodules measured on right: 1 1. 2.6 X 2.4 x 2.3 cm, mid mid, Prior size: 2.8 x 2.2 x 2.4 cm. TIRADS Score: 3 TIRADS Category 3: Composition: Solid or almost completely solid (2 points). Echogenicity: Hyperechoic or isoechoic (1 point). Shape: Wider than tall (0 points). Margin: Smooth (0 points). Echogenic foci: None or large comet-tail artifacts (0 points) Recommendation: If >2.5cm: FNA; If >1.5cm: Follow up at 1,3,5 years LEFT: # of nodules measured on left: 0 ISTHMUS: # of nodules measured in the isthmus: 0 Bilateral neck scanned, no evidence of lymphadenopathy. IMPRESSION: Right thyroid nodule that meets criteria for FNA if not already performed.
== END | disposition home or self-care (01) ==
LOC: RADUSWWP 13:03
PROVIDERS: ATTEND Otolaryngology
DX: E04.1 Nontoxic single thyroid nodule (principal)
CPT/HCPCS: 76536

== ENCOUNTER 2023-07-14 18:42 | Emergency (ER) | payer MEDICARE, OTHER ==
--- NOTE | 2023-07-14 18:52 | ED ---
Chest Pain HPI - General Chief Complaint: Chest Pain Stated Complaint: Chest Pain Time Seen by Provider: 07/14/23 18:48 Source: patient, RN notes reviewed, old records reviewed Mode of arrival: EMS Limitations: no limitations - History of Present Illness Initial Comments: This is a 68-year-old female to the ER for evaluation today. Patient presents today for evaluation of cough congestion shortness of breath chest pain. His pain is February are just starting her back bleeding in her front. Increasing cough and congestion but no fevers no recent travel history sick contacts no current shortness of breath she does have episodes of coughing fits with history of COPD as patient has a complicated medical history MD Complaint: chest pain -: days(s) Onset: during rest, during exertion Pain Location: substernal, left chest, right chest, epigastric Pain Radiation: back Severity: moderate Severity scale (1-10): 4 Quality: aching Consistency: intermittent Improves With: nothing Worsens With: nothing Anginal Symptoms: dyspnea Other Symptoms: cough Treatments Prior to Arrival: none - Related Data Home Medications Medication Instructions Recorded Confirmed Montelukast [Singulair] 10 mg PO DAILY@1700 12/17/13 05/03/23 busPIRone HCL [Buspar] 30 mg PO BID@0700,1700 12/17/13 05/03/23 Levothyroxine Sodium [Synthroid] 150 mcg PO DAILY@0700 03/29/20 05/03/23 Budesonide/Formoterol Fumarate 2 puff INHALATION RT-BID@0700,1700 06/12/21 05/03/23 [Symbicort 160-4.5 Mcg Inhaler] Famotidine [Pepcid] 20 mg PO BID@0700,1700 09/03/21 05/03/23 lamoTRIgine [LaMICtal] 100 mg PO BID@0700,1700 09/03/21 05/03/23 Divalproex ER [Depakote ER] 250 mg PO DAILY@1700 10/07/21 05/03/23 OLANZapine [ZyPREXA] 10 mg PO DAILY@1700 10/07/21 05/03/23 Tamsulosin [Flomax] 0.4 mg PO DAILY@0700 10/26/21 05/03/23 ALPRAZolam [Xanax] 0.5 mg PO BID PRN 11/13/22 05/03/23 Ferrous Sulfate [Iron (65 MG 325 mg PO DAILY@0700 11/13/22 05/03/23 Elemental)] Ipratropium-Albuterol Nebulize 3 ml INHALATION RT-QID 11/13/22 05/03/23 [Duoneb 0.5 mg-3 mg/3 ml Soln] Metoprolol Tartrate [Lopressor] 25 mg PO BID@0700,1700 11/13/22 05/03/23 Thiamine [Vitamin B-1] 100 mg PO DAILY@1700 11/13/22 05/03/23 Folic Acid 1 mg PO DAILY@1700 05/03/23 05/03/23 Ibandronate Sodium [Boniva] 150 mg PO Q30D 05/03/23 05/03/23 Melatonin 5 mg PO DAILY@1700 05/03/23 05/03/23 amLODIPine [Norvasc] 5 mg PO DAILY@0700 05/03/23 05/03/23 lisinopriL [Zestril] 20 mg PO DAILY@0700 05/03/23 05/03/23 Previous Rx's Medication Instructions Recorded Acetaminophen Tab [Tylenol] 650 mg PO Q6HR PRN tab 11/17/22 Albuterol Inhaler [Ventolin Hfa 2 puff INHALATION RT-QID PRN #1 11/17/22 Inhaler] each Doxycycline [Vibramycin] 100 mg PO BID 5 Days #10 cap 05/06/23 Allergies Allergy/AdvReac Type Severity Reaction Status Date / Time codeine Allergy Unknown Verified 07/14/23 18:45 Childhood Penicillins Allergy Rash/Hives Verified 07/14/23 18:45 Sulfa (Sulfonamide Allergy Rash/Hives Verified 07/14/23 18:45 Antibiotics) Review of Systems ROS Statement: Those systems with pertinent positive or pertinent negative responses have been documented in the HPI. ROS Other: All systems not noted in ROS Statement are negative. EKG Findings - EKG Comments: EKG Findings:: EKG is sinus bradycardia 57 DC 198 QRS 129 QTC 395 - EKG Results: EKG: interpreted by FIDELINA Past Medical History Past Medical History: Asthma, Heart Failure, COPD, Diabetes Mellitus, Fibromyalgia, GERD/Reflux, Hypertension, Osteoarthritis (OA), Pneumonia, Pulmonary Embolus (PE), Skin Disorder, Thyroid Disorder Additional Past Medical History / Comment(s): Spinal Stenosis, Cervical disc disease/stenosis, scoliosis, recently having numbness/tingling L side of face/neck, recently saw metal tester for L hemidiaphragmatic elevation-pt states she was told this was probably genetic, recently bronchitis and past bronchitis, pt states recent med change (water pill) d/t electrolyte problem/kidney function being affected, pt states she has had pulmonary emboli, past bilateral lower extremity cellulitis, edema lower extremities, IBS, hemorrhoids, benign colon polyps, sinus problems, UTIs, bacteremia/sepsis, cardiac murmur, past L ankle and L wrist fractures. History of Any Multi-Drug Resistant Organisms: None Reported Past Surgical History: Section, Cholecystectomy, Hysterectomy, Tonsillectomy Additional Past Surgical History / Comment(s): EGD, colonoscopies, gastric bypass, surgery for deviated septum Past Anesthesia/Blood Transfusion Reactions: Previous Problems w/ Anesthesia Additional Past Anesthesia/Blood Transfusion Reaction / Comment(s): itching after hysterectomy, some kind of breathing problem after gastric bypass-not sure what happened Past Psychological History: Anxiety, Bipolar, Depression, Panic Disorder Smoking Status: Current every day smoker Past Alcohol Use History: None Reported Past Drug Use History: None Reported - Past Family History Mother Family Medical History: Congestive Heart Failure (CHF), Hypertension Father Additional Family Medical History / Comment(s): Father at the age of 45 yrs d/t having had rheumatic fever as a child and heart valve disease. General Exam General appearance: alert, in no apparent distress, anxious Head exam: Present: atraumatic, normocephalic, normal inspection Eye exam: Present: normal appearance, PERRL, EOMI. Absent: scleral icterus, conjunctival injection, periorbital swelling ENT exam: Present: normal exam, mucous membranes moist Neck exam: Present: normal inspection. Absent: tenderness, meningismus, lymphadenopathy Respiratory exam: Present: wheezes, decreased breath sounds, prolonged expiratory. Absent: respiratory distress, rales, rhonchi, stridor Cardiovascular Exam: Present: regular rate, normal rhythm, normal heart sounds. Absent: systolic murmur, diastolic murmur, rubs, gallop, clicks GI/Abdominal exam: Present: soft, normal bowel sounds. Absent: distended, tenderness, guarding, rebound, rigid Extremities exam: Present: normal inspection, full ROM, normal capillary refill. Absent: tenderness, pedal edema, joint swelling, calf tenderness Back exam: Present: normal inspection Neurological exam: Present: alert, oriented X3, CN II-XII intact Psychiatric exam: Present: normal affect, normal mood Skin exam: Present: warm, dry, intact, normal color. Absent: rash Course Vital Signs 07/14/23 07/14/23 07/14/23 18:43 20:57 22:41 Temperature 98.1 F 97.0 F L Pulse Rate 60 58 L 63 Respiratory 14 14 17 Rate Blood Pressure 127/68 120/94 138/76 O2 Sat by Pulse 95 100 99 Oximetry - Reevaluation(s) Reevaluation #1: Record is reviewed Reevaluation #2: Patient symptoms are improved here in the ER Reevaluation #3: Patient informed results and questions answered Studies Chest x-ray is negative for acute disease interpreted by me Reevaluation #4: Was pt. sent in by a medical professional or institution (, PA, SQL ENGINEER, urgent care, hospital, or senior living...) When possible be specific @ -no Did you speak to anyone other than the patient for history (EMS, parent, family, police, friend...)? What history was obtained from this source @ -no Did you review nursing and triage notes (agree or disagree)? Why? @ -agree Are old charts reviewed (outside hosp., previous admission, EMS record, old EKG, old radiological studies, urgent care reports/EKG's, senior living records)? Report findings @ -yes Differential Diagnosis (chest pain, altered mental status, abdominal pain women, abdominal pain men, vaginal bleeding, weakness, fever, dyspnea, syncope, headache, dizziness, GI bleed, back pain, seizure, CVA, palpatations, mental health, musculoskeletal)? @ -prior EKG interpreted by me (3pts min.). @ -yes X-rays interpreted by me (1pt min.). @ -yes negative for acute disease CT interpreted by me (1pt min.). @ -no U/S interpreted by me (1pt. min.). @ -no What testing was considered but not performed or refused? (CT, X-rays, U/S, labs)? Why? @ -none What meds were considered but not given or refused? Why? @ -none Did you discuss the management of the patient with other professionals (professionals i.e. , PA, SQL ENGINEER, lab, RT, psych nurse, case management social worker, log data technician, teacher, armored vehicle officer, shelter case manager)? Give summary @ -no Was smoking cessation discussed for >3mins.? @ -no Was critical care preformed (if so, how long)? @ -no Were there social determinants of health that impacted care today? How? (Homelessness, low income, unemployed, alcoholism, drug addiction, transportation, low edu. Level, literacy, decrease access to med. care, longterm, rehab)? @ -none Was there de-escalation of care discussed even if they declined (Discuss DNR or withdrawal of care, Hospice)? DNR status @ -no What co-morbidities impacted this encounter? (DM, HTN, Smoking, COPD, CAD, Cancer, CVA, ARF, Chemo, Hep., AIDS, mental health diagnosis, sleep apnea, morbid obesity)? @ -none Was patient admitted / discharged? Hospital course, mention meds given and route, prescriptions, significant lab abnormalities, going to OR and other pertinent info. @ - 68 female to the emergency department for evaluation of chest pain today. Chest pains atypical in nature likely per rectum COPD, patient is no acute findings here in the ER feels well chest pain is resolved and patient can be discharged home Discharge Undiagnosed new problem with uncertain prognosis? @ -no Drug Therapy requiring intensive monitoring for toxicity (Heparin, Nitro, Insulin, Cardizem)? @ -no Were any procedures done? @ -no Diagnosis/symptom? @ -Chest pain, atypical, COPD Acute, or Chronic, or Acute on Chronic? @ -Acute Uncomplicated (without systemic symptoms) or Complicated (systemic symptoms)? @ -Complicated Side effects of treatment? @ -no Exacerbation, Progression, or Severe Exacerbation? @ -exacerbation Poses a threat to life or bodily function? How? (Chest pain, [place], [place], pneumonia, PE, COPD, DKA, ARF, appy, cholecystitis, CVA, Diverticulitis, Homicidal, Suicidal, threat to staff... and all critical care pts) @ -yes with chest pain possible ACS Reevaluation #5: Differential Chest Pain: Stable Angina, Unstable Angina, STEMI, NSTEMI Aortic Dissection, Pneumothorax, Musculoskeletal, Esophageal Spasm GERD, Cholecystitis, Pancreatitis, Zoster, this is not meant to be an all-inclusive list. Chest Pain MDM - MDM 68 female to the emergency department for evaluation of chest pain today. Chest pains atypical in nature likely per rectum COPD, patient is no acute findings here in the ER feels well chest pain is resolved and patient can be discharged home Disposition Clinical Impression: Atypical chest pain, Chest pain, COPD (chronic obstructive pulmonary disease), Anxiety Disposition: HOME SELF-CARE Condition: Fair Instructions (If sedation given, give patient instructions): Chest Pain (ED) Is patient prescribed a controlled substance at d/c from ED?: No Referrals: Andrzej Wheeler MD [Primary Care Provider] - 1-2 days Time of Disposition: 20:30
[2023-07-14 19:10] LABS: Basophils # (A) 0.1 k/uL (0-0.2); Basophils % (A) 1 %; Eosinophils # (A) 0.2 k/uL (0-0.7); Eosinophils % (A) 2 %; HCT 44.4 % (34.0-46.0); HGB 14.3 gm/dL (11.4-16.0); Lymphocytes % (A) 17 %; MCH 31.3 pg (25.0-35.0); MCHC 32.3 g/dL (31.0-37.0); Mean Platelet Volume 7.1; Monocytes # (A) 0.7 k/uL (0-1.0); Monocytes % (A) 6 %; Neutrophils # (A) 8.6 k/uL (1.3-7.7); Neutrophils % (A) 73 %; Platelet Count 367 k/uL (150-450); RBC 4.57 m/uL (3.80-5.40); RDW 12.7 % (11.5-15.5); WBC 11.8 k/uL (3.8-10.6)
[2023-07-14] MEDS ORDERED: SODIUM CHLORIDE 0.9% 500 ML 500 ML IV STA (19:16)
[2023-07-14] MEDS ORDERED: IPRATROPIUM-ALBUTEROL 3 ML NEB INHALATION STA (19:16)
[2023-07-14] MEDS ORDERED: KETOROLAC 15 MG/ML 1 ML VIAL IVP STA (19:16)
[2023-07-14 19:19] LABS: INR 0.9 (<1.2); Partial Thromboplastin Time 24.3 sec (22.0-30.0); Prothrombin Time 10.3 sec (10.0-12.5)
[2023-07-14 19:23] LABS: ALT 25 U/L (4-34); AST 33 U/L (14-36); African American GFR (CKD) 63 (>60 ml/min/1.73 sqM); Albumin 3.8 g/dL (3.5-5.0); Alkaline Phosphatase 67 U/L (38-126); Anion Gap 10 mmol/L; Blood Urea Nitrogen 30 mg/dL (7-17); Calcium 9.1 mg/dL (8.4-10.2); Carbon Dioxide 25 mmol/L (22-30); Chloride 98 mmol/L (98-107); Glucose 120 mg/dL (74-99); Lipase 155 U/L (23-300); Magnesium 1.9 mg/dL (1.6-2.3); Non-African American GFR(CKD) 55 (>60 ml/min/1.73 sqM); Potassium 5.3 mmol/L (3.5-5.1); Sodium 133 mmol/L (137-145); Total Bilirubin 0.4 mg/dL (0.2-1.3); Total Protein 6.1 g/dL (6.3-8.2)
[2023-07-14 19:32] LABS: NT-Pro-B-Type Natriuretic Pept 956 pg/mL
--- NOTE | 2023-07-14 22:11 | XR ---
EXAMINATION TYPE: XR chest 2V DATE OF EXAM: 07/14/2023 7:17 PM CLINICAL INDICATION:Female, 68 years old with history of Chest Pain; [facility] COMPARISON: 05/13/2023 TECHNIQUE: XR chest 2V. Frontal PA and lateral views of the chest. FINDINGS: EKG leads present without indwelling lines seen. Low lung volumes likely exaggerated the cardiomedias tinal silhouette. Mild to moderate cardiomegaly is suggested. Partially calcified somewhat tortuous a eldon. Mild pulmonary vascular congestion. Mild blunting of right costophrenic angle. Mild to moderate blunting of left costophrenic angle with adjacent opacity. No visualized pneumothorax. Osseous struc tures are grossly unchanged. IMPRESSION: Cardiomegaly with mild pulmonary vascular congestion. Small to moderate left and smaller right pleural effusion, similar to the prior study.
[2023-07-14 22:56] VITALS: BP 138/76; PULSE 63; RESP 17; TEMP 97
== END 2023-07-14 22:55 | disposition home or self-care (01) ==
LOC: EC 18:42
DX: J44.9 Chronic obstructive pulmonary disease, unspecified (principal); F41.9 Anxiety disorder, unspecified; E11.9 Type 2 diabetes mellitus without complications; I11.0 Hypertensive heart disease with heart failure; I50.9 Heart failure, unspecified; E07.9 Disorder of thyroid, unspecified; F31.9 Bipolar disorder, unspecified; K21.9 Gastro-esophageal reflux disease without esophagitis; F17.200 Nicotine dependence, unspecified, uncomplicated; Z79.890 Hormone replacement therapy; Z79.51 Long term (current) use of inhaled steroids; Z79.899 Other long term (current) drug therapy; Z88.0 Allergy status to penicillin; Z88.2 Allergy status to sulfonamides; Z88.5 Allergy status to narcotic agent
CPT/HCPCS: 36415; 93005; 83880; 80053; 83690; 83735; 84484; 85025; 85610; 85730; 71046; 99285; 96374; 96361; J1885

== ENCOUNTER 2023-10-24 09:39 | Observation (INO) | payer MEDICARE, OTHER ==
[2023-10-24] MEDS: ASPIRIN 81 MG PO STA (10:22)
[2023-10-24] MEDS: NITROGLYCERIN OINT 1 INCH/GM PACKET TOPICAL STA (10:22)
[2023-10-24] MEDS: HYDROmorphone 1 MG/ML 1 ML SYRINGE IVP STA (10:23)
--- NOTE | 2023-10-24 10:23 | ED ---
General Adult HPI - General Chief complaint: Chest Pain Stated complaint: chest pains Time Seen by Provider: 10/24/23 09:50 Source: patient, RN notes reviewed, old records reviewed Mode of arrival: wheelchair - History of Present Illness Initial comments: This is a 68-year-old female who presents to the emergency department complaining of chronic back leg and neck symptoms. Patient's reason for coming in today however it was because she started having some chest pain that started last night. Patient states because she has pain in her arms she is unable to tell if it is from the chest pain or not. Patient states she also was mildly short of breath. Patient states she continues to have chest pain currently. Patient dates she is also very anxious. Patient Nu[place] any fever chills or cough or patient has any abdominal pain patient has nausea vomiting diarrhea. - Related Data Home Medications Medication Instructions Recorded Confirmed Montelukast [Singulair] 10 mg PO DAILY@1700 12/17/13 05/03/23 busPIRone HCL [Buspar] 30 mg PO BID@0700,169912/17/13 05/03/23 Levothyroxine Sodium [Synthroid] 150 mcg PO DAILY@0700 03/29/20 05/03/23 Budesonide/Formoterol Fumarate 2 puff INHALATION RT-BID@0700,169906/12/21 05/03/23 [Symbicort 160-4.5 Mcg Inhaler] Famotidine [Pepcid] 20 mg PO BID@0700,169909/03/21 05/03/23 lamoTRIgine [LaMICtal] 100 mg PO BID@0700,169909/03/21 05/03/23 Divalproex ER [Depakote ER] 250 mg PO DAILY@1700 10/07/21 05/03/23 OLANZapine [ZyPREXA] 10 mg PO DAILY@1700 10/07/21 05/03/23 Tamsulosin [Flomax] 0.4 mg PO DAILY@0700 10/26/21 05/03/23 ALPRAZolam [Xanax] 0.5 mg PO BID PRN 11/13/22 05/03/23 Ferrous Sulfate [Iron (65 MG 325 mg PO DAILY@0700 11/13/22 05/03/23 Elemental)] Ipratropium-Albuterol Nebulize 3 ml INHALATION RT-QID 11/13/22 05/03/23 [Duoneb 0.5 mg-3 mg/3 ml Soln] Metoprolol Tartrate [Lopressor] 25 mg PO BID@0700,1700 11/13/22 05/03/23 Thiamine [Vitamin B-1] 100 mg PO DAILY@1700 11/13/22 05/03/23 Folic Acid 1 mg PO DAILY@1700 05/03/23 05/03/23 Ibandronate Sodium [Boniva] 150 mg PO Q30D 05/03/23 05/03/23 Melatonin 5 mg PO DAILY@1700 05/03/23 05/03/23 amLODIPine [Norvasc] 5 mg PO DAILY@0700 05/03/23 05/03/23 lisinopriL [Zestril] 20 mg PO DAILY@0700 05/03/23 05/03/23 Previous Rx's Medication Instructions Recorded Acetaminophen Tab [Tylenol] 650 mg PO Q6HR PRN tab 11/17/22 Albuterol Inhaler [Ventolin Hfa 2 puff INHALATION RT-QID PRN #1 11/17/22 Inhaler] each Doxycycline [Vibramycin] 100 mg PO BID 5 Days #10 cap 05/06/23 Allergies Allergy/AdvReac Type Severity Reaction Status Date / Time codeine Allergy Unknown Verified 10/24/23 09:44 Childhood Penicillins Allergy Rash/Hives Verified 10/24/23 09:44 Sulfa (Sulfonamide Allergy Rash/Hives Verified 10/24/23 09:44 Antibiotics) Review of Systems ROS Statement: Those systems with pertinent positive or pertinent negative responses have been documented in the HPI. ROS Other: All systems not noted in ROS Statement are negative. Past Medical History Past Medical History: Asthma, Heart Failure, COPD, Diabetes Mellitus, Fibromyalgia, GERD/Reflux, Hypertension, Osteoarthritis (OA), Pneumonia, Pulmonary Embolus (PE), Skin Disorder, Thyroid Disorder Additional Past Medical History / Comment(s): Spinal Stenosis, Cervical disc disease/stenosis, scoliosis, recently having numbness/tingling L side of face/neck, recently saw conduit reamer operator for L hemidiaphragmatic elevation-pt states she was told this was probably genetic, recently bronchitis and past bronchitis, pt states recent med change (water pill) d/t electrolyte problem/kidney function being affected, pt states she has had pulmonary emboli, past bilateral lower extremity cellulitis, edema lower extremities, IBS, hemorrhoids, benign colon polyps, sinus problems, UTIs, bacteremia/sepsis, cardiac murmur, past L ankle and L wrist fractures. History of Any Multi-Drug Resistant Organisms: None Reported Past Surgical History: Section, Cholecystectomy, Hysterectomy, Tonsillectomy Additional Past Surgical History / Comment(s): EGD, colonoscopies, gastric bypass, surgery for deviated septum Past Anesthesia/Blood Transfusion Reactions: Previous Problems w/ Anesthesia Additional Past Anesthesia/Blood Transfusion Reaction / Comment(s): itching after hysterectomy, some kind of breathing problem after gastric bypass-not sure what happened Past Psychological History: Anxiety, Bipolar, Depression, Panic Disorder Smoking Status: Current every day smoker Past Alcohol Use History: None Reported Past Drug Use History: None Reported - Past Family History Mother Family Medical History: Congestive Heart Failure (CHF), Hypertension Father Additional Family Medical History / Comment(s): Father at the age of 45 yrs d/t having had rheumatic fever as a child and heart valve disease. General Exam - General Exam Comments Initial Comments: GENERAL: Patient is well-developed and well-nourished. Patient is nontoxic and well- hydrated and is in mild distress. ENT: Neck is soft and supple. No significant lymphadenopathy is noted. Oropharynx is clear. Moist mucous membranes. Neck has full range of motion without eliciting any pain. EYES: The sclera were anicteric and conjunctiva were pink and moist. Extraocular movements were intact and pupils were equal round and reactive to light. Eyelids were unremarkable. PULMONARY: Unlabored respirations. Good breath sounds bilaterally. No audible rales rhonchi or wheezing was noted. CARDIOVASCULAR: There is a regular rate and rhythm without any murmurs gallops or rubs. ABDOMEN: Soft and nontender with normal bowel sounds. SKIN: Skin is clear with no lesions or rashes and otherwise unremarkable. NEUROLOGIC: Patient is alert and oriented x3. Cranial nerves II through XII are grossly intact. Motor and sensory are also intact. Normal speech, volume and content. Symmetrical smile. MUSCULOSKELETAL: Normal extremities with adequate strength and full range of motion. No lower extremity swelling or edema. No calf tenderness. LYMPHATICS: No significant lymphadenopathy is noted PSYCHIATRIC: Patient is mildly anxious Course Vital Signs 10/24/23 10/24/23 10/24/23 09:40 09:52 11:05 Temperature 98.6 F Pulse Rate 71 68 62 Respiratory 18 18 16 Rate Blood Pressure 130/71 149/77 136/70 O2 Sat by Pulse 93 L 91 L 92 L Oximetry Medical Decision Making - Medical Decision Making EKG is interpreted by myself. EKG shows a sinus rhythm at 66 bpm parable 194 QRS 118 QT interval 370 QTc is 393. Patient's EKG shows T wave inversions in lead III and aVR which was seen on previous EKGs Was pt. sent in by a medical professional or institution (, PA, CORPORATE QUALITY ENGINEER, urgent care, hospital, or half-way...) When possible be specific @ -No Did you speak to anyone other than the patient for history (EMS, parent, family, police, friend...)? What history was obtained from this source @ -No Did you review nursing and triage notes (agree or disagree)? Why? @ -I reviewed and agree with nursing and triage notes Were old charts reviewed (outside hosp., previous admission, EMS record, old EKG, old radiological studies, urgent care reports/EKG's, half-way records)? Report findings @ -No old charts were reviewed Differential Diagnosis (chest pain, altered mental status, abdominal pain women, abdominal pain men, vaginal bleeding, weakness, fever, dyspnea, syncope, headache, dizziness, GI bleed, back pain, seizure, CVA, palpatations, mental health, musculoskeletal)? @ -Differential Chest Pain: Stable Angina, Unstable Angina, STEMI, NSTEMI Aortic Dissection, Pneumothorax, Musculoskeletal, Esophageal Spasm GERD, Cholecystitis, Pancreatitis, Zoster, this is not meant to be an all-inclusive list. EKG interpreted by me (3pts min.). @ -As above X-rays interpreted by me (1pt min.). @ -Chest x-ray shows no acute abnormality CT interpreted by me (1pt min.). @ -None done U/S interpreted by me (1pt. min.). @ -None done What testing was considered but not performed or refused? (CT, X-rays, U/S, labs)? Why? @ -None What meds were considered but not given or refused? Why? @ -None Did you discuss the management of the patient with other professionals (professionals i.e. , PA, CORPORATE QUALITY ENGINEER, lab, RT, psych nurse, certified social workers in health care, sandblaster stone, teacher, project officer, case management coordinator)? Give summary @ -I spoke with [facility] they agreed admit the patient Was smoking cessation discussed for >3mins.? @ -No Was critical care preformed (if so, how long)? @ -No Were there social determinants of health that impacted care today? How? (Homelessness, low income, unemployed, alcoholism, drug addiction, transportation, low edu. Level, literacy, decrease access to med. care, assisted, rehab)? @ -No Was there de-escalation of care discussed even if they declined (Discuss DNR or withdrawal of care, Hospice)? DNR status @ -No What co-morbidities impacted this encounter? (DM, HTN, Smoking, COPD, CAD, Cancer, CVA, ARF, Chemo, Hep., AIDS, mental health diagnosis, sleep apnea, morbid obesity)? @ -None Was patient admitted / discharged? Hospital course, mention meds given and route, prescriptions, significant lab abnormalities, going to OR and other pertinent info. @ -Patient received some Ativan she stated it helped with her anxiety. Patient also was given aspirin Nitropaste and when I went back into reevaluate the charan ent and discussed lab results patient states she had no chest pain at this time. I spoke with [facility] they agreed admit the patient to the patient wrote admitting orders and I consult the cardiology. Undiagnosed new problem with uncertain prognosis? @ -No Drug Therapy requiring intensive monitoring for toxicity (Heparin, Nitro, Insulin, Cardizem)? @ -No Were any procedures done? @ -No Diagnosis/symptom? @ -Default Acute, or Chronic, or Acute on Chronic? @ -Chest pain acute Uncomplicated (without systemic symptoms) or Complicated (systemic symptoms)? @ -Complicated Side effects of treatment? @ -No Exacerbation, Progression, or Severe Exacerbation? @ -No Poses a threat to life or bodily function? How? (Chest pain, [place], CO, pneumonia, PE, COPD, DKA, ARF, appy, cholecystitis, CVA, Diverticulitis, Homicidal, Suicidal, threat to staff... and all critical care pts) @ -Yes this could lead to an CO and endorgan dysfunction - Lab Data Result diagrams: 10/24/23 10:11 10/24/23 10:11 Lab Results 10/24/23 10/24/23 10/24/23 Range/Units 10:11 10:11 10:11 WBC 11.7 H (3.8-10.6) k/uL RBC 4.65 (3.80-5.40) m/uL Hgb 14.1 (11.4-16.0) gm/dL Hct 45.1 (34.0-46.0) % MCV 96.9 (80.0-100.0) fL MCH 30.2 (25.0-35.0) pg MCHC 31.2 (31.0-37.0) g/dL RDW 13.1 (11.5-15.5) % Plt Count 331 (150-450) k/uL MPV 7.4 Neutrophils % 71 % Lymphocytes % 20 % Monocytes % 6 % Eosinophils % 1 % Basophils % 1 % Neutrophils # 8.3 H (1.3-7.7) k/uL Lymphocytes # 2.3 (1.0-4.8) k/uL Monocytes # 0.7 (0-1.0) k/uL Eosinophils # 0.1 (0-0.7) k/uL Basophils # 0.1 (0-0.2) k/uL PT 10.5 (10.0-12.5) sec INR 0.9 (<1.2) APTT 25.2 (22.0-30.0) sec Sodium 135 L (137-145) mmol/L Potassium 3.8 (3.5-5.1) mmol/L Chloride 108 H (98-107) mmol/L Carbon Dioxide 21 L (22-30) mmol/L Anion Gap 6 mmol/L BUN 17 (7-17) mg/dL Creatinine 0.50 L (0.52-1.04) mg/dL Est GFR (CKD-EPI)AfAm >90 (>60 ml/min/1.73 sqM) Est GFR (CKD-EPI)NonAf >90 (>60 ml/min/1.73 sqM) Glucose 84 (74-99) mg/dL Calcium 8.1 L (8.4-10.2) mg/dL Magnesium 1.5 L (1.6-2.3) mg/dL Total Bilirubin 0.4 (0.2-1.3) mg/dL AST 25 (14-36) U/L ALT 20 (4-34) U/L Alkaline Phosphatase 62 (38-126) U/L Troponin I (0.000-0.034) ng/mL Total Protein 4.9 L (6.3-8.2) g/dL Albumin 2.9 L (3.5-5.0) g/dL 10/24/23 Range/Units 10:11 WBC (3.8-10.6) k/uL RBC (3.80-5.40) m/uL Hgb (11.4-16.0) gm/dL Hct (34.0-46.0) % MCV (80.0-100.0) fL MCH (25.0-35.0) pg MCHC (31.0-37.0) g/dL RDW (11.5-15.5) % Plt Count (150-450) k/uL MPV Neutrophils % % Lymphocytes % % Monocytes % % Eosinophils % % Basophils % % Neutrophils # (1.3-7.7) k/uL Lymphocytes # (1.0-4.8) k/uL Monocytes # (0-1.0) k/uL Eosinophils # (0-0.7) k/uL Basophils # (0-0.2) k/uL PT (10.0-12.5) sec INR (<1.2) APTT (22.0-30.0) sec Sodium (137-145) mmol/L Potassium (3.5-5.1) mmol/L Chloride (98-107) mmol/L Carbon Dioxide (22-30) mmol/L Anion Gap mmol/L BUN (7-17) mg/dL Creatinine (0.52-1.04) mg/dL Est GFR (CKD-EPI)AfAm (>60 ml/min/1.73 sqM) Est GFR (CKD-EPI)NonAf (>60 ml/min/1.73 sqM) Glucose (74-99) mg/dL Calcium (8.4-10.2) mg/dL Magnesium (1.6-2.3) mg/dL Total Bilirubin (0.2-1.3) mg/dL AST (14-36) U/L ALT (4-34) U/L Alkaline Phosphatase (38-126) U/L Troponin I <0.012 (0.000-0.034) ng/mL Total Protein (6.3-8.2) g/dL Albumin (3.5-5.0) g/dL Disposition Clinical Impression: Chest pain Disposition: ADMITTED IP TO THIS HOSP Referrals: Andrzej Wheeler MD [Primary Care Provider] - 1-2 days Time of Disposition: 11:43
[2023-10-24 10:25] LABS: Basophils # (A) 0.1 k/uL (0-0.2); Basophils % (A) 1 %; Eosinophils # (A) 0.1 k/uL (0-0.7); Eosinophils % (A) 1 %; HCT 45.1 % (34.0-46.0); HGB 14.1 gm/dL (11.4-16.0); Lymphocytes # (A) 2.3 k/uL (1.0-4.8); Lymphocytes % (A) 20 %; MCH 30.2 pg (25.0-35.0); MCHC 31.2 g/dL (31.0-37.0); MCV 96.9 fL (80.0-100.0); Mean Platelet Volume 7.4; Monocytes # (A) 0.7 k/uL (0-1.0); Monocytes % (A) 6 %; Neutrophils # (A) 8.3 k/uL (1.3-7.7); Neutrophils % (A) 71 %; Platelet Count 331 k/uL (150-450); RBC 4.65 m/uL (3.80-5.40); RDW 13.1 % (11.5-15.5); WBC 11.7 k/uL (3.8-10.6)
--- NOTE | 2023-10-24 10:29 | XR ---
EXAMINATION TYPE: XR chest 2V DATE OF EXAM: 10/24/2023 COMPARISON: 07/14/2023 HISTORY: Shortness of breath TECHNIQUE: Frontal and lateral views of the chest are obtained. FINDINGS: Scattered senescent parenchymal changes noted. Hyperinflation compatible with COPD. No evidence for infiltrate. No evidence for atelectasis. Chronic elevation left hemidiaphragm. Chroni c blunting right costophrenic angle may reflect pleural thickening or small effusion. Cardiomegaly without overt failure. Prominence of the central pulmonary arteries may reflect pulmonar y arterial hypertension. Mediastinal structures are stable and grossly unremarkable. No evidence for hilar prominence. Degenerative changes dorsal spine. IMPRESSION: 1. Cardiomegaly without overt failure. Prominence of the central pulmonary arteries may reflect pulmo nary arterial hypertension. 2. Chronic elevation left hemidiaphragm.
[2023-10-24 10:40] LABS: INR 0.9 (<1.2); Partial Thromboplastin Time 25.2 sec (22.0-30.0); Prothrombin Time 10.5 sec (10.0-12.5)
[2023-10-24 10:43] LABS: ALT 20 U/L (4-34); AST 25 U/L (14-36); African American GFR (CKD) >90 (>60 ml/min/1.73 sqM); Albumin 2.9 g/dL (3.5-5.0); Alkaline Phosphatase 62 U/L (38-126); Anion Gap 6 mmol/L; Blood Urea Nitrogen 17 mg/dL (7-17); Calcium 8.1 mg/dL (8.4-10.2); Carbon Dioxide 21 mmol/L (22-30); Chloride 108 mmol/L (98-107); Glucose 84 mg/dL (74-99); Magnesium 1.5 mg/dL (1.6-2.3); Non-African American GFR(CKD) >90 (>60 ml/min/1.73 sqM); Potassium 3.8 mmol/L (3.5-5.1); Sodium 135 mmol/L (137-145); Total Bilirubin 0.4 mg/dL (0.2-1.3); Total Protein 4.9 g/dL (6.3-8.2)
[2023-10-24] MEDS: MAGNESIUM SULFATE-D5W PMX 1 GM in DEXTROSE/WATER 1 100ML.BAG IVPB ONE (11:06)
[2023-10-24] MEDS ORDERED: NITROGLYCERIN SL TABS 0.4 MG TAB SUBLINGUAL PRN (11:43)
--- NOTE | 2023-10-24 11:56 | P.HPIM ---
History of Present Illness Patient is a 68-year-old female came in with symptoms of back pain mostly in the tailbone area radiating all the way up to the cervical spine 80 and radiating to the chest across the chest, and tingling numbness predominantly in the left arm along with burning sensation patient denies any weakness patient does not have any weakness in the legs but has radicular symptoms in both legs. Patient has chronic pain and chronic degenerative disc disease and patient follows up with back specialist as an outpatient who referred her to body painter patient takes [place] which is not helping her at this time. Patient is admitted for rule out acute coronary syndromes consisting of chest pain, troponins are negative EKG showed some nonspecific ST elevations in the anterior leads which were present in the previous EKGs as well but more prominent now patient has some left axis deviation. Cardiology was consulted from ER. Patient does have COPD history and wears oxygen at nighttime presently saturating at 92% on room air. REVIEW OF SYSTEMS: CONSTITUTIONAL: No fever, no malaise, no fatigue. HEENT: No recent visual problems or hearing problems. Denied any sore throat. CARDIOVASCULAR: No orthopnea, PND, no palpitations, no syncope. PULMONARY: No shortness of breath, no cough, no hemoptysis. GASTROINTESTINAL: No diarrhea, no nausea, no vomiting, no abdominal pain. NEUROLOGICAL: No headaches, no weakness, no numbness. HEMATOLOGICAL: Denies any bleeding or petechiae. GENITOURINARY: Denies any burning micturition, frequency, or urgency. MUSCULOSKELETAL/RHEUMATOLOGICAL: As mentioned in HPI ENDOCRINE: Denies any polyuria or polydipsia. The rest of the 14-point review of systems is negative. PHYSICAL EXAMINATION: GENERAL: The patient is alert and oriented x3, not in any acute distress. Well developed, well nourished. HEENT: Pupils are round and equally reacting to light. EOMI. No scleral icterus. No conjunctival pallor. Normocephalic, atraumatic. No pharyngeal erythema. No thyromegaly. CARDIOVASCULAR: S1 and S2 present. No murmurs, rubs, or gallops. PULMONARY: Chest is clear to auscultation, no wheezing or crackles. ABDOMEN: Soft, nontender, nondistended, normoactive bowel sounds. No palpable organomegaly. MUSCULOSKELETAL: No joint swelling or deformity. EXTREMITIES: No cyanosis, clubbing, or pedal edema. NEUROLOGICAL: Gross neurological examination did not reveal any focal deficits. SKIN: No rashes. Assessment and plan -Chronic pain in the thoracolumbar and sacral area: Secondary to degenerative spine disease, will obtain a thoracic lumbar and sacral x-rays patient does have radicular signs but is does not have any weakness does not have any signs of cord compression at this time will give a dose of Decadron, will start her on Toradol along with GI prophylaxis and computer network support specialist will be consulted. Her pain improved significantly. Physical therapy and Occupational Therapy evaluation -Chest pain secondary to thoracic spine disease troponins are negative EKG as mentioned above low possibility of acute coronary event. -Leukocytosis reactive in nature -Hypomagnesemia magnesium will be replaced -COPD without any acute exacerbation -Chronic pain, fibromyalgia -History of PE in the past -Hypothyroidism -Depression For above-mentioned chronic medical problems once medications were verified appropriate medications will be reordered DVT prophylaxis: Lovenox -GI prophylaxis Pepcid Past Medical History Past Medical History: Asthma, Heart Failure, COPD, Diabetes Mellitus, Fibromyalgia, GERD/Reflux, Hypertension, Osteoarthritis (OA), Pneumonia, Pulmonary Embolus (PE), Skin Disorder, Thyroid Disorder Additional Past Medical History / Comment(s): Spinal Stenosis, Cervical disc disease/stenosis, scoliosis, recently having numbness/tingling L side of face/neck, recently saw managing consultant for L hemidiaphragmatic elevation-pt states she was told this was probably genetic, recently bronchitis and past bronchitis, pt states recent med change (water pill) d/t electrolyte problem/kidney function being affected, pt states she has had pulmonary emboli, past bilateral lower extremity cellulitis, edema lower extremities, IBS, hemorrhoids, benign colon polyps, sinus problems, UTIs, bacteremia/sepsis, cardiac murmur, past L ankle and L wrist fractures. History of Any Multi-Drug Resistant Organisms: None Reported Past Surgical History: Section, Cholecystectomy, Hysterectomy, Tonsillectomy Additional Past Surgical History / Comment(s): EGD, colonoscopies, gastric bypass, surgery for deviated septum Past Anesthesia/Blood Transfusion Reactions: Previous Problems w/ Anesthesia Additional Past Anesthesia/Blood Transfusion Reaction / Comment(s): itching after hysterectomy, some kind of breathing problem after gastric bypass-not sure what happened Past Psychological History: Anxiety, Bipolar, Depression, Panic Disorder Smoking Status: Current every day smoker Past Alcohol Use History: None Reported Past Drug Use History: None Reported - Past Family History Mother Family Medical History: Congestive Heart Failure (CHF), Hypertension Father Additional Family Medical History / Comment(s): Father at the age of 45 yrs d/t having had rheumatic fever as a child and heart valve disease. Medications and Allergies Home Medications Medication Instructions Recorded Confirmed Type Montelukast [Singulair] 10 mg PO DAILY@1700 12/17/13 05/03/23 History busPIRone HCL [Buspar] 30 mg PO BID@0700,17012/17/13 05/03/23 History Levothyroxine Sodium [Synthroid] 150 mcg PO DAILY@0700 03/29/20 05/03/23 History Budesonide/Formoterol Fumarate 2 puff INHALATION RT-BID@0700,169906/12/21 05/03/23 History [Symbicort 160-4.5 Mcg Inhaler] Famotidine [Pepcid] 20 mg PO BID@0700,169909/03/21 05/03/23 History lamoTRIgine [LaMICtal] 100 mg PO BID@0700,169909/03/21 05/03/23 History Divalproex ER [Depakote ER] 250 mg PO DAILY@169910/07/21 05/03/23 History OLANZapine [ZyPREXA] 10 mg PO DAILY@169910/07/21 05/03/23 History Tamsulosin [Flomax] 0.4 mg PO DAILY@0700 10/26/21 05/03/23 History ALPRAZolam [Xanax] 0.5 mg PO BID PRN 11/13/22 05/03/23 History Ferrous Sulfate [Iron (65 MG 325 mg PO DAILY@0700 11/13/22 05/03/23 History Elemental)] Ipratropium-Albuterol Nebulize 3 ml INHALATION RT-QID 11/13/22 05/03/23 History [Duoneb 0.5 mg-3 mg/3 ml Soln] Metoprolol Tartrate [Lopressor] 25 mg PO BID@0700,1700 11/13/22 05/03/23 History Thiamine [Vitamin B-1] 100 mg PO DAILY@1700 11/13/22 05/03/23 History Acetaminophen Tab [Tylenol] 650 mg PO Q6HR PRN tab 11/17/22 05/03/23 Rx Albuterol Inhaler [Ventolin Hfa 2 puff INHALATION RT-QID PRN #1 11/17/22 05/03/23 Rx Inhaler] each Folic Acid 1 mg PO DAILY@1700 05/03/23 05/03/23 History Ibandronate Sodium [Boniva] 150 mg PO Q30D 05/03/23 05/03/23 History Melatonin 5 mg PO DAILY@1700 05/03/23 05/03/23 History amLODIPine [Norvasc] 5 mg PO DAILY@0705/03/23 05/03/23 History lisinopriL [Zestril] 20 mg PO DAILY@0705/03/23 05/03/23 History Doxycycline [Vibramycin] 100 mg PO BID 5 Days #10 cap 05/06/23 Rx Allergies Allergy/AdvReac Type Severity Reaction Status Date / Time codeine Allergy Unknown Verified 10/24/23 09:44 Childhood Penicillins Allergy Rash/Hives Verified 10/24/23 09:44 Sulfa (Sulfonamide Allergy Rash/Hives Verified 10/24/23 09:44 Antibiotics) Physical Exam Vitals: Vital Signs Temp Pulse Resp BP Pulse Ox 10/24/23 11:05 62 16 136/70 92 L 10/24/23 09:52 68 18 149/77 91 L 10/24/23 09:40 98.6 F 71 18 130/71 93 L Intake and Output 10/23/23 10/24/23 10/24/23 22:59 06:59 14:59 Other: Weight 71.214 kg Results CBC & Chem 7: 10/24/23 10:11 10/24/23 10:11 Labs: Abnormal Lab Results - Last 24 Hours (Table) 10/24/23 10/24/23 Range/Units 10:11 10:11 WBC 11.7 H (3.8-10.6) k/uL Neutrophils # 8.3 H (1.3-7.7) k/uL Sodium 135 L (137-145) mmol/L Chloride 108 H (98-107) mmol/L Carbon Dioxide 21 L (22-30) mmol/L Creatinine 0.50 L (0.52-1.04) mg/dL Calcium 8.1 L (8.4-10.2) mg/dL Magnesium 1.5 L (1.6-2.3) mg/dL Total Protein 4.9 L (6.3-8.2) g/dL Albumin 2.9 L (3.5-5.0) g/dL
[2023-10-24] MEDS: dexAMETHasone 4 MG TAB PO STA (12:17)
[2023-10-24] MEDS: FAMOTIDINE 20 MG TAB PO SCH (12:17)
--- NOTE | 2023-10-24 14:40 | P.CNOR ---
History of Present Illness - [facility] Consult date: 10/24/23 Consult reason: low back pain, other History of present illness: patient is a 68-year-old female who presented to the emergency room for evaluation of chest pain along with chronic acute on chronic low back pain. patient has a very extensive medical history. Patient has a known history of both neck pain and low back pain, she has been diagnosed with scoliosis in the past. She came into the hospital today for worsening pain and radiation of the pain into her chest. She was evaluated by the emergency room staff, patient was admitted under internal medicine. Multiple medical specialties have been placed on consult, our orthopedic team was consulted with regards to the back symptoms. Patient was evaluated today in the emergency room, patient seems very anxious on exam, she has a resting tremor in the bilateral upper extremities. Patient has a somewhat detailed history of her neck and back symptoms. She has known severe scoliosis. Apparently the patient has been seen by a few different provi ders at [facility], Dr. Wesley of the orthopedic spine surgeon and some of their pain management doctors. Patient is not the greatest historian with regards to what treatment she has had and how long the symptoms have been present. It sounds like she has had a recent epidural injection into her low back, she has noticed very minimal relief at this time. patient notes numbness and tingling in the bilateral lower extremities left is worse than the right. She also admits to bilateral upper extremity paresthesias. Patient denies any elvira loss of strength in the bilateral upper or lower extremities. She denies any loss of bowel or bladder function at this time. Patient utilizes a wheelchair and also a walker for her ambulation, she does live in a home with a ramp. Patient has been on [place] 5 mg / 325 mg with minimal relief of her symptoms. Patient feels that she had an MRI of both her cervical and lumbar spine within the last few months at [facility]. X-rays were attempted today of both the thoracic and lumbar spine, patient was unable to tolerate these. Patient also states that the pain management doctor at [facility] did recommend patient see a different paint preparer at [facility]. Review of Systems Constitutional: Reports as per HPI Past Medical History Past Medical History: Asthma, Heart Failure, COPD, Diabetes Mellitus, Fibromyalgia, GERD/Reflux, Hypertension, Osteoarthritis (OA), Pneumonia, Pulmonary Embolus (PE), Skin Disorder, Thyroid Disorder Additional Past Medical History / Comment(s): Spinal Stenosis, Cervical disc disease/stenosis, scoliosis, recently having numbness/tingling L side of face/neck, recently saw tong setter for L hemidiaphragmatic elevation-pt states she was told this was probably genetic, recently bronchitis and past bronchitis, pt states recent med change (water pill) d/t electrolyte problem/kidney function being affected, pt states she has had pulmonary emboli, past bilateral lower extremity cellulitis, edema lower extremities, IBS, hemorrhoids, benign colon polyps, sinus problems, UTIs, bacteremia/sepsis, cardiac murmur, past L ankle and L wrist fractures. History of Any Multi-Drug Resistant Organisms: None Reported Past Surgical History: Section, Cholecystectomy, Hysterectomy, Tonsillectomy Additional Past Surgical History / Comment(s): EGD, colonoscopies, gastric bypass, surgery for deviated septum Past Anesthesia/Blood Transfusion Reactions: Previous Problems w/ Anesthesia Additional Past Anesthesia/Blood Transfusion Reaction / Comm: itching after hysterectomy, some kind of breathing problem after gastric bypass-not sure what happened Past Psychological History: Anxiety, Bipolar, Depression, Panic Disorder Smoking Status: Current every day smoker Past Alcohol Use History: None Reported Past Drug Use History: None Reported - Past Family History Mother Family Medical History: Congestive Heart Failure (CHF), Hypertension Father Additional Family Medical History / Comment(s): Father at the age of 45 yrs d/t having had rheumatic fever as a child and heart valve disease. Medications and Allergies Home Medications Medication Instructions Recorded Confirmed Type Montelukast [Singulair] 10 mg PO DAILY 12/17/13 10/24/23 History Levothyroxine Sodium [Synthroid] 150 mcg PO DAILY 03/29/20 10/24/23 History Budesonide/Formoterol Fumarate 2 puff INHALATION RT-BID 06/12/21 10/24/23 History [Symbicort 160-4.5 Mcg Inhaler] Famotidine [Pepcid] 20 mg PO BID 09/03/21 10/24/23 History Divalproex ER [Depakote ER] 250 mg PO HS 10/07/21 10/24/23 History Tamsulosin [Flomax] 0.4 mg PO DAILY 10/26/21 10/24/23 History Ferrous Sulfate [Iron (65 MG 325 mg PO DAILY 11/13/22 10/24/23 History Elemental)] Ipratropium-Albuterol Nebulize 3 ml INHALATION RT-QID PRN 11/13/22 10/24/23 History [Duoneb 0.5 mg-3 mg/3 ml Soln] Metoprolol Tartrate [Lopressor] 25 mg PO BID 11/13/22 10/24/23 History Thiamine [Vitamin B-1] 100 mg PO DAILY 11/13/22 10/24/23 History Albuterol Inhaler [Ventolin Hfa 2 puff INHALATION RT-QID PRN #1 11/17/22 10/24/23 Rx Inhaler] each Ibandronate Sodium [Boniva] 150 mg PO Q30D 05/03/23 10/24/23 History Melatonin 5 mg PO HS PRN 05/03/23 10/24/23 History amLODIPine [Norvasc] 5 mg PO DAILY 05/03/23 10/24/23 History lisinopriL [Zestril] 20 mg PO DAILY 05/03/23 10/24/23 History Acetaminophen [Tylenol Arthritis] 650 mg PO Q4HR PRN 10/24/23 10/24/23 History HYDROcodone/APAP 5-325MG [[place] 1 tab PO TID PRN 10/24/23 10/24/23 History 5-325] OLANZapine 15 mg PO HS 10/24/23 10/24/23 History Venlafaxine HCl [Effexor XR] 150 mg PO DAILY 10/24/23 10/24/23 History clonazePAM [Klonopin ODT] 0.25 mg PO DAILY@1400 10/24/23 10/24/23 History hydrOXYzine HCL [Atarax] 25 mg PO BID 10/24/23 10/24/23 History lamoTRIgine [LaMICtal] 150 mg PO BID 10/24/23 10/24/23 History Allergies Allergy/AdvReac Type Severity Reaction Status Date / Time codeine Allergy Unknown Verified 10/24/23 12:08 Childhood Penicillins Allergy Rash/Hives Verified 10/24/23 12:08 Sulfa (Sulfonamide Allergy Rash/Hives Verified 10/24/23 12:08 Antibiotics) Physical Examination Gen: AOx3, NAD VSS stable at this time Integument: No open lesions or sores are visualized throughout the cervical, thoracic or lumbar spine, no significant areas of erythema or soft tissue swelling Palpation: patient demonstrates tenderness with palpation to the paraspinal region of the cervical and lumbar spine ROM: full range of motion in all major muscle groups of the bilateral upper extremities, no focal deficits appreciated full range of motion in all major muscle groups of the bilateral lower extremities, no focal deficits appreciated Sensory Exam: Senory exam to light touch is intact C5-T1 [place] exam to light touch is intact L2-S1 Motor: 4/5 strength appreciated in the bilateral upper extremities with shoulder elevation, shoulder abduction, elbow extension, elbow flexion, wrist extension, wrist flexion, 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 technician 4/5 strength appreciated in the bilateral lower extremities with hip flexion, knee extension, knee flexion, plantarflexion, dorsiflexion, EHL, FHL Reflexes: negative Dallas's bilaterally positive clonus bilaterally, right worse than left Special Test: logroll maneuver reproduces no groin pain bilaterally Results - Labs Labs: Abnormal Lab Results - Last 24 Hours (Table) 10/24/23 10/24/23 Range/Units 10:11 10:11 WBC 11.7 H (3.8-10.6) k/uL Neutrophils # 8.3 H (1.3-7.7) k/uL Sodium 135 L (137-145) mmol/L Chloride 108 H (98-107) mmol/L Carbon Dioxide 21 L (22-30) mmol/L Creatinine 0.50 L (0.52-1.04) mg/dL Calcium 8.1 L (8.4-10.2) mg/dL Magnesium 1.5 L (1.6-2.3) mg/dL Total Protein 4.9 L (6.3-8.2) g/dL Albumin 2.9 L (3.5-5.0) g/dL H & H 10/24/23 Range/Units 10:11 Hgb 14.1 (11.4-16.0) gm/dL Hct 45.1 (34.0-46.0) % Coagulation 10/24/23 Range/Units 10:11 INR 0.9 (<1.2) Result Diagrams: 10/24/23 10:11 10/24/23 10:11 - Diagnostic results Hip x-ray: report reviewed, image reviewed ( AP pelvis x-ray was reviewed from 10/26/2021, this demonstrates bilateral mild/moderate hip osteoarthritis) CT scan - cervical: report reviewed, image reviewed ( reports and images were reviewed of a CT scan that was done of the cervical spine from 10/26/2021, this was limited due to patient mobility. Multilevel cervical spondylosis with varying degrees of foraminal stenosis noted) CT Scan - lumbar: report reviewed, image reviewed ( CT of the lumbar spine without contrast both reports and images were reviewed from 04/22/2021. Images demonstrated severe scoliotic deformity near the thoracic lumbar juncture. Multilevel lumbar spondylosis with varying degrees of neuroforaminal stenosis. Multilevel lumbar spine vacuum disc ) Assessment and Plan Assessment: Neck pain Low back pain Bilateral lower extremity radiculopathy Bilateral upper extremity radiculopathy Multilevel cervical spondylosis Multilevel lumbar spondylosis Scoliosis Multiple medical comorbidities Plan: I was able to discuss the case, this to include both physical exam findings and imaging studies my attending. No emergent orthopedic surgical intervention is recommended at this time. I anticipate with the patient's positive clonus to the bilateral lower extremities, and her gait abnormalities with regards to the amount of pain she is she has varying degrees of both cervical and lumbar central canal stenosis and neuroforaminal stenosis With patient's current state, she would be unable to tolerate a CT scan or an MRI. There is definitely an anxiety related issue to her current state, would recommend utilizing medications to help with that. I did discuss with the patient the need to try to get copies of both her reports and images of the cervical and lumbar MRI that was done at [facility] so we could evaluate. P.ending patient's symptoms and if we are unable to obtain these studies, could consider repeat MRI imaging of both the cervical and lumbar spine According to internal medicine's note, patient was given a dose of Decadron, I would continue this at 4 mg every 6 hours and monitor symptoms. Would also consider the use of a muscle relaxer and also gabapentin versus Lyrica. GI and DVT prophylaxis per primary medical service Other medical specialty recommendations appreciated Will continue to follow patient during hospital stay Time with Patient: Less than 30
[2023-10-24] MEDS ORDERED: ALBUTEROL NEBULIZED 2.5 MG/3 ML INHALATION PRN (15:57)
[2023-10-24] MEDS ORDERED: MELATONIN 5 MG TABLET PO PRN (15:57)
[2023-10-24] MEDS: HYDROcodone/APAP 5-325MG 1 EACH TAB PO PRN (17:45)
[2023-10-24] MEDS: NITROGLYCERIN OINT 1 INCH/GM PACKET TOPICAL SCH (17:46)
[2023-10-24] MEDS: clonazePAM 0.5 MG TAB PO STA (18:17)
[2023-10-24] MEDS: KETOROLAC 15 MG/ML 1 ML VIAL IVP PRN (18:23)
[2023-10-24] MEDS: lamoTRIgine 100 MG TAB PO SCH (20:16)
[2023-10-24] MEDS: OLANZapine 7.5 MG TAB PO SCH (20:16)
[2023-10-24] MEDS: DIVALPROEX ER 250 MG TAB.ER.24H PO SCH (20:16)
[2023-10-24] MEDS: METOPROLOL TARTRATE 25 MG TAB PO SCH (20:16)
[2023-10-24] MEDS: IPRATROPIUM-ALBUTEROL 3 ML NEB INHALATION PRN (20:22)
[2023-10-24] MEDS: SYMBICORT 160-4.5 MCG INHALER INHALATION SCH (20:22)
[2023-10-25] MEDS: QUEtiapine 25 MG TAB PO STA (01:12)
[2023-10-25] MEDS: LEVOTHYROXINE 75 MCG TAB PO SCH (06:12)
[2023-10-25] MEDS: TAMSULOSIN 0.4 MG CAP.ER.24H PO SCH (08:01)
[2023-10-25] MEDS: amLODIPine 5 MG TAB PO SCH (08:01)
[2023-10-25] MEDS: VENLAFAXINE HCL ER 150 MG CAP PO SCH (08:01)
[2023-10-25] MEDS: THIAMINE 100 MG TAB PO SCH (08:02)
[2023-10-25] MEDS: ASPIRIN 325 MG TAB PO SCH (08:02)
[2023-10-25] MEDS: lisinopriL 20 MG TAB PO SCH (08:02)
[2023-10-25] MEDS: MONTELUKAST 10 MG TAB PO SCH (08:02)
[2023-10-25] MEDS: FERROUS SULFATE 325 MG TAB PO SCH (08:02)
[2023-10-25] MEDS: ENOXAPARIN 40 MG/0.4 ML SYRINGE SQ SCH (08:02)
[2023-10-25] MEDS: clonazePAM 0.5 MG TAB PO STA (08:02)
[2023-10-25 08:44] VITALS: BP 169/88; PULSE 78; RESP 20; TEMP 98.5
[2023-10-25 09:03] LABS: Chol/HDL Ratio 2.32 Ratio
--- NOTE | 2023-10-25 11:06 | P.PN ---
Subjective Progress Note Date: 10/25/23 Principal diagnosis: Low back pain Patient seen this morning. Patient is sitting upright in wheelchair pedaling within room. Upon entering room patient began to cry and state her anxiety is not being controlled. She states that she had explained to the ER physician that if the hospital could not manage her anxiety she did not want to stay here. Discussed with patient the need to obtain recent MRI films from [facility]. Patient's spouse is to be contacted and request to fruit picker disc from the facility to bring in so that we can have it downloaded into our system. Admitting Supervisor is going to obtain reports and have them uploaded into her chart. RN was present in room with morning medications. Physical exam limited due to emotional state. Patient denies any changes to her symptoms. Objective - Vital Signs Vital signs: Vital Signs Temp 98.5 F 10/25/23 07:15 Pulse 81 10/25/23 08:39 Resp 20 10/25/23 07:15 BP 169/88 10/25/23 07:15 Pulse Ox 93 L 10/25/23 08:30 FiO2 Intake & Output 10/24/23 10/25/23 10/25/23 18:59 06:59 18:59 Weight 71.214 kg 71.214 kg Other: Voiding Method Toilet # Voids 1 - Exam Physical exam was limited due to patient's emotional state. Patient presents sitting up in a wheelchair. Upon entering room, RN was present with morning medications. Patient began crying and stating she "didn't want to stay at this hospital if they are not going to help me control my anxiety." - Labs CBC & Chem 7: 10/24/23 10:11 10/24/23 10:11 Labs: Abnormal Lab Results - Last 24 Hours (Table) 10/24/23 10/24/23 Range/Units 10:11 10:11 WBC 11.7 H (3.8-10.6) k/uL Neutrophils # 8.3 H (1.3-7.7) k/uL Sodium 135 L (137-145) mmol/L Chloride 108 H (98-107) mmol/L Carbon Dioxide 21 L (22-30) mmol/L Creatinine 0.50 L (0.52-1.04) mg/dL Calcium 8.1 L (8.4-10.2) mg/dL Magnesium 1.5 L (1.6-2.3) mg/dL Total Protein 4.9 L (6.3-8.2) g/dL Albumin 2.9 L (3.5-5.0) g/dL Assessment and Plan Assessment: Neck pain Low back pain Bilateral lower extremity radiculopathy Bilateral upper extremity radiculopathy Multilevel cervical spondylosis Multilevel lumbar spondylosis Scoliosis Multiple medical comorbidities Plan: -Awaiting reports and films from [facility] of possible MRI of the cervical and lumbar spine -Recommend IV Decadron 4 mg every 6 hours and to monitor symptoms. -Recommend use of a muscle relaxer and also Gabapentin versus Lyrica. -GI and DVT prophylaxis per primary medical service -Other medical specialty recommendations appreciated -Will continue to follow patient during hospital stay I reviewed and discussed this case with my attending Dr. Alex, whom has reviewed this chart and films and is in agreement with assessment and plan of care as outlined above. I have personally seen and examined the patient, performed the documentation and the assessment and plan as written. Number of minutes spent on the visit: 20m.
[2023-10-25] MEDS ORDERED: clonazePAM 0.5 MG TAB PO SCH (14:00)
--- NOTE | 2023-10-25 15:14 | CONS ---
CONSULTATION HISTORY OF PRESENT ILLNESS: This is a 68-year-old lady with multiple comorbid conditions including degenerative disease of the cervical and lumbar spine. She also has hypertension, diabetes, hyperlipidemia. She has been seen and followed closely by Dr. Last who performed an echocardiogram a year ago also which was unremarkable. Lexiscan stress test in January of last year which did not reveal ischemia. Echo from October 2022 revealed good systolic function and mild concentric LVH. She had a cardiac cath in 2013 that did not reveal significant disease. She is here with episode of chest pain. Quality of the pain is very atypical. She is resting comfortably, has more of a cervical spine and back pain. EKG also reveals a sinus mechanism with an IVCD, but no significant new abnormalities. Troponins are unremarkable. She is resting comfortably at this time. Three sets of troponins are normal. PAST MEDICAL HISTORY: 1. No significant CAD by catheterization 10 years ago. 2. Normal LV function and a negative stress test within the last 1 year. 3. Hypertension. 4. Hyperlipidemia. 5. Questionable lung mass, being followed by pulmonology. 6. History of degenerative disease of spine and multiple areas of cervical and also lumbar. PHYSICAL EXAMINATION: VITAL SIGNS: Blood pressure is 160/70, pulse rate 70 per minute. HEENT: Unremarkable, fundus was not examined by me. NECK: Supple. No JVD. I do not hear a carotid bruit. There is no thyromegaly. HEART: Reveals S1, S2 heard normally. No rub, murmur or gallop. LUNGS: Clear. ABDOMEN: Soft. EXTREMITIES: Lower extremities reveal diminished pulses. NEUROLOGIC: Central nervous system grossly no focal deficits. IMPRESSION: 1. Atypical chest pain, not suggestive of angina. Negative stress test within the last 1 year. 2. Back discomfort and cervical spine disease. 3. Hypertension. 4. History of having some lung mass, details of which are unavailable. RECOMMENDATIONS: No further intervention is necessary from a cardiac standpoint. Patient's symptoms do not suggest angina. Enzymes are negative. Stress test in January was normal. Advised to resume room medications and we will continue to see her as needed. Thank you very much for the consult. MMODL / IJN: [id number] /
== END 2023-10-25 13:15 | disposition home or self-care (01) ==
LOC: EC 09:39 → 6NMEDSUR 11:43
PROVIDERS: ADMIT Internal Medicine; ATTEND Internal Medicine
DX: M47.22 Other spondylosis with radiculopathy, cervical region (principal); M47.26 Other spondylosis with radiculopathy, lumbar region; M41.9 Scoliosis, unspecified; G89.29 Other chronic pain; D72.829 Elevated white blood cell count, unspecified; E83.42 Hypomagnesemia; M79.7 Fibromyalgia; E03.9 Hypothyroidism, unspecified; I11.0 Hypertensive heart disease with heart failure; I50.9 Heart failure, unspecified; E11.9 Type 2 diabetes mellitus without complications; K21.9 Gastro-esophageal reflux disease without esophagitis; J45.909 Unspecified asthma, uncomplicated; F31.9 Bipolar disorder, unspecified; F41.0 Panic disorder [episodic paroxysmal anxiety]; F17.200 Nicotine dependence, unspecified, uncomplicated; Z86.711 Personal history of pulmonary embolism; Z79.899 Other long term (current) drug therapy; Z79.890 Hormone replacement therapy; Z79.51 Long term (current) use of inhaled steroids; Z88.0 Allergy status to penicillin; Z88.2 Allergy status to sulfonamides; Z88.5 Allergy status to narcotic agent
CPT/HCPCS: 96376; 96372; 96375 ×2; 96365; 99285; 36415; 94640 ×4; 94760; 93005; 97162; 80061; 80053; 83735; 84484; 85025; 85610; 85730; 71046; G0378 ×2; J8540; J1650; J1170; J3475; J1885 ×2

== ENCOUNTER 2023-11-01 09:29 | Emergency (ER) | payer MEDICARE ==
[2023-11-01 11:15] VITALS: RESP 18; TEMP 98
[2023-11-01] MEDS: methylPREDNISolone SOD SUCCI 125 MG/2 ML VIAL IM ONE (11:15)
[2023-11-01] MEDS: HYDROmorphone 1 MG/ML 1 ML SYRINGE IM STA (11:16)
--- NOTE | 2023-11-01 11:30 | ED ---
Back Pain HPI - General Chief Complaint: Back Pain/Injury Stated Complaint: Burning in chest/L arm,Jose C. leg numbness Time Seen by Provider: 11/01/23 09:45 Source: patient, RN notes reviewed Limitations: no limitations - History of Present Illness Initial Comments: 68-year-old female with history of bilateral neuropathy presenting with bilateral lower extremity pain worsening over the past 2 days. Admits numbness and tingling in both lower legs however states this is typical for her. Denies known injury or trauma fever urinary incontinence, but admits urinary urgency. denies recent travel, leg swelling, new vision changes, upper extremity numbness or tingling. She states she needs something for pain as her Arlington's that she takes at home are not relieving symptoms. - Related Data Home Medications Medication Instructions Recorded Confirmed Montelukast [Singulair] 10 mg PO DAILY 12/17/13 10/24/23 Levothyroxine Sodium [Synthroid] 150 mcg PO DAILY 03/29/20 10/24/23 Budesonide/Formoterol Fumarate 2 puff INHALATION RT-BID 06/12/21 10/24/23 [Symbicort 160-4.5 Mcg Inhaler] Famotidine [Pepcid] 20 mg PO BID 09/03/21 10/24/23 Divalproex ER [Depakote ER] 250 mg PO HS 10/07/21 10/24/23 Tamsulosin [Flomax] 0.4 mg PO DAILY 10/26/21 10/24/23 Ferrous Sulfate [Iron (65 MG 325 mg PO DAILY 11/13/22 10/24/23 Elemental)] Ipratropium-Albuterol Nebulize 3 ml INHALATION RT-QID PRN 11/13/22 10/24/23 [Duoneb 0.5 mg-3 mg/3 ml Soln] Metoprolol Tartrate [Lopressor] 25 mg PO BID 11/13/22 10/24/23 Thiamine [Vitamin B-1] 100 mg PO DAILY 11/13/22 10/24/23 Ibandronate Sodium [Boniva] 150 mg PO Q30D 05/03/23 10/24/23 Melatonin 5 mg PO HS PRN 05/03/23 10/24/23 amLODIPine [Norvasc] 5 mg PO DAILY 05/03/23 10/24/23 lisinopriL [Zestril] 20 mg PO DAILY 05/03/23 10/24/23 Acetaminophen [Tylenol Arthritis] 650 mg PO Q4HR PRN 10/24/23 10/24/23 HYDROcodone/APAP 5-325MG [[place] 1 tab PO TID PRN 10/24/23 10/24/23 5-325] OLANZapine 15 mg PO HS 10/24/23 10/24/23 Venlafaxine HCl [Effexor XR] 150 mg PO DAILY 10/24/23 10/24/23 clonazePAM [Klonopin ODT] 0.25 mg PO DAILY@1400 10/24/23 10/24/23 hydrOXYzine HCL [Atarax] 25 mg PO BID 10/24/23 10/24/23 lamoTRIgine [LaMICtal] 150 mg PO BID 10/24/23 10/24/23 Nitroglycerin Sl Tabs [Nitrostat] 0.4 mg SL Q5M PRN 11/01/23 11/01/23 Previous Rx's Medication Instructions Recorded Albuterol Inhaler [Ventolin Hfa 2 puff INHALATION RT-QID PRN #1 11/17/22 Inhaler] each Nitrofurantoin Monohyd/M-Cryst 100 mg PO Q12HR #14 cap 11/01/23 [Macrobid] Allergies Allergy/AdvReac Type Severity Reaction Status Date / Time codeine Allergy Unknown Verified 11/01/23 12:54 Childhood Penicillins Allergy Rash/Hives Verified 11/01/23 12:54 Sulfa (Sulfonamide Allergy Rash/Hives Verified 11/01/23 12:54 Antibiotics) Review of Systems ROS Statement: Those systems with pertinent positive or pertinent negative responses have been documented in the HPI. ROS Other: All systems not noted in ROS Statement are negative. Past Medical History Past Medical History: Asthma, Heart Failure, COPD, Diabetes Mellitus, Fibromyalgia, GERD/Reflux, Hypertension, Osteoarthritis (OA), Pneumonia, Pulmonary Embolus (PE), Skin Disorder, Thyroid Disorder Additional Past Medical History / Comment(s): Spinal Stenosis, Cervical disc disease/stenosis, scoliosis, recently having numbness/tingling L side of face/neck, recently saw garage door technician for L hemidiaphragmatic elevation-pt states she was told this was probably genetic, recently bronchitis and past bronchitis, pt states recent med change (water pill) d/t electrolyte problem/kidney function being affected, pt states she has had pulmonary emboli, past bilateral lower extremity cellulitis, edema lower extremities, IBS, hemorrhoids, benign colon polyps, sinus problems, UTIs, bacteremia/sepsis, cardiac murmur, past L ankle and L wrist fractures. History of Any Multi-Drug Resistant Organisms: None Reported Past Surgical History: Section, Cholecystectomy, Hysterectomy, Tonsillectomy Additional Past Surgical History / Comment(s): EGD, colonoscopies, gastric bypass, surgery for deviated septum Past Anesthesia/Blood Transfusion Reactions: Previous Problems w/ Anesthesia Additional Past Anesthesia/Blood Transfusion Reaction / Comment(s): itching after hysterectomy, some kind of breathing problem after gastric bypass-not sure what happened Past Psychological History: Anxiety, Bipolar, Depression, Panic Disorder Smoking Status: Current every day smoker Past Alcohol Use History: None Reported Past Drug Use History: Marijuana - Past Family History Mother Family Medical History: Congestive Heart Failure (CHF), Hypertension Father Additional Family Medical History / Comment(s): Father at the age of 45 yrs d/t having had rheumatic fever as a child and heart valve disease. General Exam Limitations: no limitations General appearance: alert, in no apparent distress Head exam: Present: atraumatic, normocephalic, normal inspection Eye exam: Present: normal appearance, PERRL, EOMI. Absent: scleral icterus, conjunctival injection, periorbital swelling ENT exam: Present: normal exam, mucous membranes moist Neck exam: Present: normal inspection. Absent: tenderness, meningismus, lymphadenopathy Respiratory exam: Present: normal lung sounds bilaterally. Absent: respiratory distress, wheezes, rales, rhonchi, stridor Cardiovascular Exam: Present: regular rate, normal rhythm, normal heart sounds. Absent: systolic murmur, diastolic murmur, rubs, gallop, clicks GI/Abdominal exam: Present: soft, normal bowel sounds, other (No suprapubic tenderness). Absent: distended, tenderness, guarding, rebound, rigid Back exam: Present: normal inspection, full ROM, tenderness (Diffuse tenderness along thoracic and lumbar spine as well as paraspinal muscles. No rashes or skin changes. No point tenderness.) Neurological exam: Present: alert, oriented X3, CN II-XII intact, other (Follow strength and range of motion of bilateral lower extremities. Full sensation, dorsalis pedis pulses. No saddle anesthesia.) Expanded Patient oriented to: Present: person, place, time Cranial nerves: EOM's Intact: Normal, Facial Sensation: Normal Sensory exam: Upper Extremity Light Touch: Normal, Lower Extremity Light Touch: Normal Motor strength exam: RUE: 5, LUE: 5, RLE: 5, LLE: 5 Eye Response: (4) open spontaneously Motor Response: (6) obeys commands Verbal Response: (5) oriented Psychiatric exam: Present: normal affect, normal mood Skin exam: Present: warm, dry, intact, normal color. Absent: rash Course Vital Signs 11/01/23 11/01/23 11/01/23 09:32 09:36 13:08 Temperature 98.6 F 98.0 F Pulse Rate 80 75 67 Respiratory 20 18 18 Rate Blood Pressure 169/84 174/88 139/71 O2 Sat by Pulse 92 L 90 L 94 L Oximetry Medical Decision Making - Medical Decision Making Was pt. sent in by a medical professional or institution (, PA, AMUSEMENT RIDE OPERATOR, urgent care, hospital, or halfway...) When possible be specific @ -[No] Did you speak to anyone other than the patient for history (EMS, parent, family, police, friend...)? What history was obtained from this source @ -[No] Did you review nursing and triage notes (agree or disagree)? Why? @ -[I reviewed and agree with nursing and triage notes] Were old charts reviewed (outside hosp., previous admission, EMS record, old EKG, old radiological studies, urgent care reports/EKG's, halfway records)? Report findings @ -[No old charts were reviewed] Differential Diagnosis (chest pain, altered mental status, abdominal pain women, abdominal pain men, vaginal bleeding, weakness, fever, dyspnea, syncope, headache, dizziness, GI bleed, back pain, seizure, CVA, palpatations, mental health, musculoskeletal)? @ -Differential Musculoskeletal Muscular strain, contusion, ligament sprain, fracture, arthritis, septic arthritis, bursitis, cellulitis, muscle spasm, nerve compression, DVT, arterial occlusion, herpes zoster, electrolyte abnormality, tumor.... This is not meant to be in all inclusive list EKG interpreted by me (3pts min.). @ -None X-rays interpreted by me (1pt min.). @ -[None done] CT interpreted by me (1pt min.). @ -Severe degenerative changes U/S interpreted by me (1pt. min.). @ -[None done] What testing was considered but not performed or refused? (CT, X-rays, U/S, labs)? Why? @ -[None] What meds were considered but not given or refused? Why? @ -[None] Did you discuss the management of the patient with other professionals (professionals i.e. DrDominic, PA, AMUSEMENT RIDE OPERATOR, lab, RT, psych nurse, professor of social work, supervisor gas meter repair, teacher, corporate responsibility officer, case folder)? Give summary @ -[No] Was smoking cessation discussed for >3mins.? @ -[No] Was critical care preformed (if so, how long)? @ -[No] Were there social determinants of health that impacted care today? How? (Homelessness, low income, unemployed, alcoholism, drug addiction, transportation, low edu. Level, literacy, decrease access to med. care, intermediate, rehab)? @ -[No] Was there de-escalation of care discussed even if they declined (Discuss DNR or withdrawal of care, Hospice)? DNR status @ -[No] What co-morbidities impacted this encounter? (DM, HTN, Smoking, COPD, CAD, Cancer, CVA, ARF, Chemo, Hep., AIDS, mental health diagnosis, sleep apnea, morbid obesity)? @ -[None] Was patient admitted / discharged? Hospital course, mention meds given and route, prescriptions, significant lab abnormalities, going to OR and other pertinent info. @ -Patient was discharged. Patient was seen and evaluated for low back pain and urinary urgency. Patient has extensive history of spinal stenosis. Neuro examination was normal. There are no red flag symptoms. CT of lumbar spine revealed severe degenerative changes with spinal stenosis. Urine revealed minimal leukocytes. Pain was controlled with Dilaudid and Solu-Medrol. Patient was prescribed Keflex for UTI. Strict return symptoms discussed with patient. Patient discharged in stable condition. Case discussed with Dr. Jasso. Undiagnosed new problem with uncertain prognosis? @ -[No] Drug Therapy requiring intensive monitoring for toxicity (Heparin, Nitro, Insulin, Cardizem)? @ -[No] Were any procedures done? @ -[No] Diagnosis/symptom? @ -Spinal stenosis, urinary tract infection Acute, or Chronic, or Acute on Chronic? @ -Acute on chronic Uncomplicated (without systemic symptoms) or Complicated (systemic symptoms)? @ -[default] Side effects of treatment? @ -[No] Exacerbation, Progression, or Severe Exacerbation? @ -[No] Poses a threat to life or bodily function? How? (Chest pain, USA, NV, pneumonia, PE, COPD, DKA, ARF, appy, cholecystitis, CVA, Diverticulitis, Homicidal, Celena cidal, threat to staff... and all critical care pts) @ -[No] - Lab Data Lab Results 11/01/23 Range/Units 11:08 Urine Color Colorless Urine Appearance Clear (Clear) Urine pH 6.5 (5.0-8.0) Ur Specific [place] 1.009 (1.001-1.035) Urine Protein Negative (Negative) Urine Glucose (UA) Negative (Negative) Urine Ketones Negative (Negative) Urine Blood Negative (Negative) Urine Nitrite Negative (Negative) Urine Bilirubin Negative (Negative) Urine Urobilinogen <2.0 (<2.0) mg/dL Ur Leukocyte Esterase Small H (Negative) Urine RBC 1 (0-5) /hpf Urine WBC 4 (0-5) /hpf Ur Squamous Epith Cells 1 (0-4) /hpf Urine Bacteria Rare H (None) /hpf Hyaline Casts 1 (0-2) /lpf Disposition Clinical Impression: Spinal stenosis, Urinary tract infection Disposition: HOME SELF-CARE Condition: Stable Additional Instructions: Please return to the Emergency Department if symptoms worsen or any other concerns. Prescriptions: Nitrofurantoin Monohyd/M-Cryst [Macrobid] 100 mg PO Q12HR #14 cap Is patient prescribed a controlled substance at d/c from ED?: No Referrals: Andrzej Wheeler MD [Primary Care Provider] - 1-2 days Time of Disposition: 12:56
[2023-11-01 11:47] LABS: Appearance,Urine Clear (Clear); Bacteria,Urine Rare /hpf; Bilirubin,Urine Negative (Negative); Blood,Urine Negative (Negative); Color,Urine Colorless; Glucose,Urine (UA) Negative (Negative); Hyaline Casts,Urine 1 /lpf (0-2); Ketones,Urine Negative (Negative); Leukocyte Esterase,Urine Small (Negative); Nitrite,Urine Negative (Negative); PH, Urine 6.5 (5.0-8.0); Protein,Urine Negative (Negative); RBC,Urine 1 /hpf (0-5); Specific Gravity,Urine 1.009 (1.001-1.035); Squamous Epithelial Cell,Urine 1 /hpf (0-4); Urobilinogen,Urine <2.0 mg/dL (<2.0); WBC,Urine 4 /hpf (0-5)
--- NOTE | 2023-11-01 11:52 | CT ---
EXAMINATION TYPE: CT lumbar spine wo con DATE OF EXAM: 11/01/2023 COMPARISON: 04/22/2021 HISTORY: 68-year-old female back pain with LE numbness/tingling TECHNIQUE: Contiguous axial scanning of the lumbar spine without IV contrast. Coronal and sagittal re constructions performed. CT DLP: 1306.6 mGycm Automated exposure control for dose reduction was used. FINDINGS: New trace right pleural effusion with patchy bibasilar opacities, right greater than left. Postsurgical change in the upper abdomen likely relating to Jennifer-en-Y gastric bypass. There is a 2.8 cm nodule in the right adrenal gland is similar compared to 2020 suggesting an underly ing adrenal adenoma. A few nonobstructive bilateral renal calculi measuring up to 4 mm. The degree of marked levoconvex scoliosis limits evaluation. There is advanced disc/endplate degenerative change at multiple levels. Vertebral body heights are pr eserved and alignment appears maintained. At T9-T10, there is a large central, right paracentral disc extrusion that may cause moderate spinal canal stenosis. Additional disc protrusions contribute to moderate to severe spinal canal stenoses at L3-L4, L4-L5, a nd L5-S1. On the left, changes resulting in severe neuroforaminal stenoses at T10-T11, T11-T12, and L5-S1. Mod erate at T12-L1 and L4-L5. On the right, moderate to severe neuroforaminal stenosis at L2-L3 and L5-S1. Moderate L3-L4. IMPRESSION: 1. THE MARKED LEVOCONVEX SCOLIOSIS LIMITS THE EVALUATION. THERE IS ADVANCED DISC/ENDPLATE DEGENERATIV E CHANGE AT MULTIPLE LEVELS WITH HYPERTROPHIC FACET ARTHROPATHY. NO VERTEBRAL COMPRESSION COLLAPSE OR MALALIGNMENT. 2. A LARGE CENTRAL, RIGHT PARACENTRAL DISC HERNIATION AT T9-T10 MAY CAUSE MODERATE SPINAL CANAL STENO SIS. 3. ADDITIONAL DISC PROTRUSIONS CONTRIBUTE TO MODERATE TO SEVERE SPINAL CANAL STENOSES FROM L3 THROUGH S1 LEVELS. 4. VARIABLE NEUROFORAMINAL STENOSES OUTLINED ABOVE, SEVERE ON THE LEFT AND MODERATE TO SEVERE ON T HE RIGHT. 5. ONGOING VERSUS RECURRENT SMALL RIGHT PLEURAL EFFUSION WITH PATCHY BIBASILAR INFILTRATES.
[2023-11-01 13:24] VITALS: BP 139/71; PULSE 67
== END 2023-11-01 13:09 | disposition home or self-care (01) ==
LOC: EC 09:29
DX: N39.0 Urinary tract infection, site not specified (principal); M48.00 Spinal stenosis, site unspecified; F17.200 Nicotine dependence, unspecified, uncomplicated; Z88.5 Allergy status to narcotic agent; Z88.0 Allergy status to penicillin; Z88.2 Allergy status to sulfonamides
CPT/HCPCS: 81001; 72131; 99284; 96372 ×2; J1170; J2919

== ENCOUNTER → 2023-11-11 | Outpatient (CLI) | payer MEDICARE ==
[2023-11-11 13:14] VITALS: BP 87/52; PULSE 77; RESP 16
--- NOTE | 2023-11-11 15:09 | P.PAINPG ---
PQRS Measure Charge Sheet Comment: HISTORY OF PRESENT ILLNESS: A 68 yr old wheelchair bound female w male oversize load pilot escort at side as a referral from Dr Sauer presents today w severe and chronic LBP > 5 yrs secondary to DDD, spondylosis and facet arthropathy for evaluation. Pt states pain level is provoked at 7 /10 in intensity, intermittent, localized in the lumbar spine, predominantly axial, sharp in character w occasional shooting pain towards the back of the LEs. Pain is provoked by oer activity. Pain is alleviated by PT x 6 wks which ended in Oct 2023, physician guided home exercises/ stretches 5 times weekly since Sep 2023. medications (Crowheart, Tyl, Ibu), BioFreeze topical, hot showers, repositioning and rest . Oswestry axial pain score at 26. PMH: OA, Asthma, CHF, COPD, NIDDM II, Fibromyalgia, GERD, Hypertension, PE, Hypothyroid Disorder, IBS, MDD/ Anxiety/ Bipolar/ Panic Disorder PSH: Gastric Bypass, Section, Cholecystectomy, Hysterectomy, Tonsillectomy, EGD, Colonoscopies, Deviated Septum Surgery SH: Daily tobacco use, No ETOH use, Cannabis use FH: Mo- CHF, HTN. Fa- at age 47 due Rheumatic Heart Disease All: See list Meds: See list REVIEW OF ORGAN SYSTEMS: CONSTITUTIONAL: No fevers or chills. No recent weight loss. NEUROLOGICAL: + numbness and tingling along the distal extremities. No seizure disorders or headaches. MUSCULOSKELETAL: + pain PSYCHIATRIC: Denies current depression or suicidal thoughts. Physical Examinations : Constitutional : Cooperative , not in acute distress . Neurologic : Cranial nerve II to XII intact. No focal neurological deficits. Psychiatric : alert & oriented x 3. Matching mood & appropriate affect. Judgment & insight intact. Musculoskeletal : Cervical Spine Motor strength in the deltoid and biceps: Normal right side. Normal Left side Motor strength biceps and the wrist extensors: Normal right side . Normal left side Motor strength in the triceps muscle: Normal right side. Normal left side Deep tendon reflexes: Normal at the biceps. Normal at Brachioradialis. Normal at triceps Vertebral body tenderness to deep palpation over Cervical facet loading test: positive bilaterally Spurling test: positive bilaterally Neck distraction test: positive bilaterally Dallas sign: positive bilaterally Lumbar spine Motor strength lower extremities ,thigh and legs 5/5 Right side , 5/5 Left side Deep tendon reflexes : Normal Knee Jerk. Normal Ankle Jerk Vertebral body tenderness over L5 Cuevas Test positive Lumbar facet Loading Test: positive Right / positive Left Range of motion of the lumbar spine Flexion 30 degrees, extension 10 degrees Straight Leg Raise test: Left/ Right positive at <35 degrees Eladio test: positive right / positive left. DDD, spondylosis and facet arthropathy without myelopathy Severe tenderness over the Sacroiliac joint on the Right / Left sides Gaenslen test: positive bilaterally Seated flexion test: positive bilaterally. Sacral spine : Severe tenderness over the Sacroiliac joint: right side / left side Range of motion: Flexion of the lumbar spine <60 degrees Range of motion: Extension of the lumbar spine <20 degrees Gaenslen's Test positive Eladio test: positive right side / left side Thigh Thrust Test Sacral Thrust Test Imaging: MRI noncontrast of the lumbar spine from 06/23/2023 reviewed Assessment/ Plan : Lumbar stenosis, Lumbar DDD Recommendation of MANDO L5-S1 #1. May need a series of injections for optimal pain relief. Risks, benefits of procedure discussed and patient verbalized understanding. Admits to anti- coagulant use or medical history of diabetes. Protocol for discontinuation/ continuation of medications leidy procedure discussed. All questions answered. I have spent greater than 30 minutes on patient care today. Dr Moeller was available by phone for the evaluation of this patient. The time was used to review the medical records including relevant urine studies and Prescription history (MAPs), review of the available imaging, evaluation and examination of the patient, coordination of care with the medical staff and if applicable referring physicians, as well as creation of the medical record PQRS Narrative: Smoking Status Current every day smoker Home Medications: Ambulatory Orders Montelukast [Singulair] 10 mg PO DAILY 12/17/13 Levothyroxine Sodium [Synthroid] 150 mcg PO DAILY 03/29/20 Budesonide/Formoterol Fumarate [Symbicort 160-4.5 Mcg Inhaler] 2 puff INHALATION RT-BID 06/12/21 Famotidine [Pepcid] 20 mg PO BID 09/03/21 Divalproex ER [Depakote ER] 250 mg PO HS 10/07/21 Tamsulosin [Flomax] 0.4 mg PO DAILY 10/26/21 Ferrous Sulfate [Iron (65 MG Elemental)] 325 mg PO DAILY 11/13/22 Ipratropium-Albuterol Nebulize [Duoneb 0.5 mg-3 mg/3 ml Soln] 3 ml INHALATION RT-QID PRN 11/13/22 Metoprolol Tartrate [Lopressor] 25 mg PO BID 11/13/22 Thiamine [Vitamin B-1] 100 mg PO DAILY 11/13/22 Albuterol Inhaler [Ventolin Hfa Inhaler] 2 puff INHALATION RT-QID PRN #1 each 11/17/22 Ibandronate Sodium [Boniva] 150 mg PO Q30D 05/03/23 Melatonin 5 mg PO HS PRN 05/03/23 amLODIPine [Norvasc] 5 mg PO DAILY 05/03/23 lisinopriL [Zestril] 20 mg PO DAILY 05/03/23 Acetaminophen [Tylenol Arthritis] 650 mg PO Q4HR PRN 10/24/23 HYDROcodone/APAP 5-325MG [[place] 5-325] 1 tab PO TID PRN 10/24/23 OLANZapine 15 mg PO HS 10/24/23 Venlafaxine HCl [Effexor XR] 150 mg PO DAILY 10/24/23 clonazePAM [Klonopin ODT] 0.25 mg PO DAILY@1400 10/24/23 hydrOXYzine HCL [Atarax] 25 mg PO BID 10/24/23 lamoTRIgine [LaMICtal] 150 mg PO BID 10/24/23 Nitrofurantoin Monohyd/M-Cryst [Macrobid] 100 mg PO Q12HR #14 cap 11/01/23 Nitroglycerin Sl Tabs [Nitrostat] 0.4 mg SL Q5M PRN 11/01/23 Controlled Substance Measures - Controlled Substance Measures Is patient prescribed a controlled substance at discharge?: No
== END ==
LOC: PNWHC3 12:15
PROVIDERS: ATTEND Specialist
DX: M54.2 Cervicalgia (principal); M48.062 Spinal stenosis, lumbar region with neurogenic claudication; M48.02 Spinal stenosis, cervical region; M47.817 Spondylosis without myelopathy or radiculopathy, lumbosacral region; M51.36 Other intervertebral disc degeneration, lumbar region; F17.200 Nicotine dependence, unspecified, uncomplicated; Z88.5 Allergy status to narcotic agent; Z88.2 Allergy status to sulfonamides; Z88.0 Allergy status to penicillin
CPT/HCPCS: 99211

== ENCOUNTER 2023-11-25 09:12 | Day surgery (SDC) | payer MEDICARE ==
[2023-11-24 09:05] VITALS: BMI 32.8
[2023-11-25 09:48] LABS: Glucose,Whole Blood 96 mg/dL (70-110)
[2023-11-25 09:54] VITALS: TEMP 97
--- NOTE | 2023-11-25 10:13 | P.PCN ---
Date of Procedure: 11/25/23 Description of Procedure: Date of Procedure: 11/25/23 Description of Procedure: PREOPERATIVE DIAGNOSIS: 1-lumbar radiculopathy 2-Lumbar spondylosis with Facet arthropathy without myelopathy POSTOPERATIVE DIAGNOSIS: Lumbar radiculopathy 2-Lumbar spondylosis with Facet arthropathy without myelopathy PROCEDURE 1. Lumbar epidural steroid injection under fluoroscopic guidance at the L5-S1 level. 2. Lumbar epidurogram. ANESTHESIA: Local with 1% lidocaine 3 ml EBL: Minimal PROCEDURE INDICATION: The patient with low back pain and radiculitis symptoms unresponsive to conservative treatment. SLE was positive reproducing radicular pain along the right leg . Fluoroscopy was used to optimize visualization of the needle placement and to maximize safety. PROCEDURE DESCRIPTION / TECHNIQUE: The patient was seen and identified in the preoperative area. Risks, benefits, complications including but not limited to infections ,bleeding ,allergic reaction to the medications ,nerve damage and not complete pain releife , and alternatives were discussed with the patient. The patient agreed to proceed with the procedure and signed the consent. IV was started, and vital signs were stable. Patient was taken to the OR and time out was completed. The patient was placed in the prone position on procedure table and a pillow was placed under the abdomen to reduce lumbar lordosis. The lumbosacral area was prepped and draped in the usual sterile fashion.ere closely monitored during the procedure. Conscious sedation was used during the procedure to decrease patients anxiety. Vital signs was monitered during the entire procedure. Using anterior-posterior fluoroscopy, the L5-S1 interlaminar space was identified and the skin over this site was marked and then infiltrated with 1% lidocaine subcutaneously. Subsequently, a 20-gauge Tuohy epidural needle was i nserted and advanced toward the epidural space using the ``Loss of resistance technique and guided by AP and lateral fluoroscopy. The correct needle position in the epidural space was verified with the injection of 1 mL of the water soluble contrast dye Omnipaque 180 contrast and observing an excellent epidurogram with the epidural spread of the dye, after negative aspiration for blood and CSF and in the absence of paresthesias. Again after negative aspiration, a 5 ml mixture containing 40mg kenalog and 4 ml of preservative free Normal Saline was injected and a washout of epidurogram was seen. Needle was withdrawn intact, skin was cleansed, and bandages were applied. COMPLICATIONS: None DISPOSITION / PLANS: The patient was placed in a supine position and transferred to the recovery area in a stable condition for observation. There was no evidence of lower extremity motor or sensory deficit after the procedure. Patient was discharged from the recovery room after meeting discharge criteria. Home discharge instructions were given to the patient by the staff. The patient was reexamined prior to discharge. The patient will schedule a repeat injection in 2-4 weeks.
[2023-11-25] MEDS ORDERED: IOPAMIDOL M200 10 ML VIAL ONE (10:18)
[2023-11-25] MEDS ORDERED: TRIAMCINOLONE ACETONIDE 40 MG/ML 1 ML VIAL ONE (10:18)
--- NOTE | 2023-11-25 10:51 | FL ---
EXAMINATION TYPE: FL guided pain mgmt statistic Intraoperative/procedural fluoroscopic services were provided. Total fluoroscopy time is 8.9 seconds with a total of 2 submitted images to PACS. Please se e the operative/procedural note for further details. DAP: [id number] mGym2
[2023-11-25 11:25] VITALS: BP 158/67; PULSE 62; RESP 20
== END 2023-11-25 10:55 | disposition home or self-care (01) ==
LOC: ORPAIN 09:12
PROVIDERS: ATTEND Anesthesiology
DX: M47.26 Other spondylosis with radiculopathy, lumbar region (principal); Z88.0 Allergy status to penicillin; Z88.2 Allergy status to sulfonamides; Z88.5 Allergy status to narcotic agent
CPT/HCPCS: 62323; J3301; Q9966

== ENCOUNTER 2023-12-12 11:51 | Inpatient (IN) | payer MEDICARE ==
--- NOTE | 2023-12-12 12:19 | ED ---
General Adult HPI - General Chief complaint: Extremity Problem,Nontraumatic Stated complaint: leg swelling Time Seen by Provider: 12/12/23 12:00 Source: patient, RN notes reviewed Mode of arrival: wheelchair Limitations: no limitations - History of Present Illness Initial comments: 68-year-old female with a past medical history of CHF, COPD presents to the emergency department for evaluation of bilateral lower extremity edema. She states that this has been going on for around 2 weeks. She notes that she saw her primary care provider on Wednesday and was started on water pills. She has not noted much improvement from this. She reports a lot of pain in her legs from the swelling. Admits to slightly worsened shortness of breath. She reports that her oxygen is typically low 90s. Denies chest pain, recent fever, chills. - Related Data Home Medications Medication Instructions Recorded Confirmed Montelukast [Singulair] 10 mg PO DAILY 12/17/13 12/12/23 Levothyroxine Sodium [Synthroid] 150 mcg PO DAILY 03/29/20 12/12/23 Budesonide/Formoterol Fumarate 2 puff INHALATION RT-BID 06/12/21 12/12/23 [Symbicort 160-4.5 Mcg Inhaler] Famotidine [Pepcid] 20 mg PO BID 09/03/21 12/12/23 Divalproex ER [Depakote ER] 250 mg PO HS 10/07/21 12/12/23 Tamsulosin [Flomax] 0.4 mg PO DAILY 10/26/21 12/12/23 Ferrous Sulfate [Iron (65 MG 325 mg PO DAILY 11/13/22 12/12/23 Elemental)] Ipratropium-Albuterol Nebulize 3 ml INHALATION RT-QID PRN 11/13/22 12/12/23 [Duoneb 0.5 mg-3 mg/3 ml Soln] Metoprolol Tartrate [Lopressor] 25 mg PO BID 11/13/22 12/12/23 Thiamine [Vitamin B-1] 100 mg PO DAILY 11/13/22 12/12/23 Ibandronate Sodium [Boniva] 150 mg PO Q30D 05/03/23 12/12/23 Melatonin 5 mg PO HS PRN 05/03/23 12/12/23 lisinopriL [Zestril] 20 mg PO DAILY 05/03/23 12/12/23 Acetaminophen [Tylenol Arthritis] 650 mg PO Q4HR PRN 10/24/23 12/12/23 OLANZapine 15 mg PO HS 10/24/23 12/12/23 lamoTRIgine [LaMICtal] 150 mg PO BID 10/24/23 12/12/23 Nitroglycerin Sl Tabs [Nitrostat] 0.4 mg SL Q5M PRN 11/01/23 12/12/23 Gabapentin 800 mg PO DIRECTED 12/12/23 12/12/23 HYDROcodone/APAP 5-325MG [[place] 1 tab PO BID 12/12/23 12/12/23 5-325] Venlafaxine HCl [Effexor XR] 150 mg PO DAILY 12/12/23 12/12/23 amLODIPine [Norvasc] 5 mg PO DAILY 12/12/23 12/12/23 clonazePAM [Klonopin ODT] 0.25 mg PO DAILY 12/12/23 12/12/23 Previous Rx's Medication Instructions Recorded Albuterol Inhaler [Ventolin Hfa 2 puff INHALATION RT-QID PRN #1 11/17/22 Inhaler] each Allergies Allergy/AdvReac Type Severity Reaction Status Date / Time codeine Allergy Unknown Verified 12/12/23 14:37 Childhood Penicillins Allergy Rash/Hives Verified 12/12/23 14:37 Sulfa (Sulfonamide Allergy Rash/Hives Verified 12/12/23 14:37 Antibiotics) Review of Systems ROS Statement: Those systems with pertinent positive or pertinent negative responses have been documented in the HPI. ROS Other: All systems not noted in ROS Statement are negative. 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 History of Any Multi-Drug Resistant Organisms: None Reported Past Surgical History: Section, Cholecystectomy, Hysterectomy, Tonsillectomy Additional Past Surgical History / Comment(s): EGD, colonoscopies, gastric bypass, surgery for deviated septum, left cataract removal (having laser procedure on that eye 11/24/23) Past Anesthesia/Blood Transfusion Reactions: Previous Problems w/ Anesthesia Additional Past Anesthesia/Blood Transfusion Reaction / Comment(s): itching after hysterectomy, some kind of breathing problem after gastric bypass-not sure what happened Past Psychological History: Anxiety, Bipolar, Depression, Panic Disorder Smoking Status: Current every day smoker Past Alcohol Use History: None Reported Past Drug Use History: Marijuana - Past Family History Mother Family Medical History: Congestive Heart Failure (CHF), Hypertension Father Additional Family Medical History / Comment(s): Father at the age of 45 yrs d/t having had rheumatic fever as a child and heart valve disease. General Exam Limitations: no limitations General appearance: alert, in no apparent distress Head exam: Present: atraumatic, normocephalic, normal inspection Eye exam: Present: normal appearance, PERRL, EOMI. Absent: scleral icterus, conjunctival injection, periorbital swelling ENT exam: Present: normal exam, mucous membranes moist Respiratory exam: Present: wheezes Cardiovascular Exam: Present: regular rate, normal rhythm, normal heart sounds. Absent: systolic murmur, diastolic murmur, rubs, gallop, clicks GI/Abdominal exam: Present: soft, normal bowel sounds. Absent: distended, tenderness, guarding, rebound, rigid Extremities exam: Present: full ROM, normal capillary refill, pedal edema, other (2+ pitting edema) Neurological exam: Present: alert, oriented X3 Psychiatric exam: Present: normal affect, normal mood Skin exam: Present: warm, dry, intact, normal color. Absent: rash Course Vital Signs 12/12/23 12/12/23 12/12/23 11:52 14:13 16:35 Temperature 98.3 F Pulse Rate 70 67 70 Respiratory 18 20 20 Rate Blood Pressure 100/57 130/65 136/59 O2 Sat by Pulse 88 L 88 L 85 L Oximetry 12/12/23 12/12/23 12/12/23 17:50 18:12 18:26 Temperature Pulse Rate 80 Respiratory 20 Rate Blood Pressure 147/79 138/58 O2 Sat by Pulse 87 L 89 L Oximetry 12/12/23 12/12/23 12/12/23 19:14 19:41 21:05 Temperature Pulse Rate 68 68 Respiratory 18 18 Rate Blood Pressure 136/65 136/65 O2 Sat by Pulse 96 95 92 L Oximetry 12/12/23 12/13/23 12/13/23 23:21 00:06 01:00 Temperature Pulse Rate 63 66 73 Respiratory 20 20 22 Rate Blood Pressure 117/55 138/67 166/81 O2 Sat by Pulse 96 96 92 L Oximetry 12/13/23 12/13/23 12/13/23 01:48 02:05 02:08 Temperature Pulse Rate 72 71 78 Respiratory 18 Rate Blood Pressure O2 Sat by Pulse 88 L Oximetry 12/13/23 12/13/23 02:10 02:12 Temperature Pulse Rate 78 Respiratory Rate Blood Pressure O2 Sat by Pulse 95 95 Oximetry Medical Decision Making - Medical Decision Making Was pt. sent in by a medical professional or institution (, PA, SURGICAL SALES REPRESENTATIVE, urgent care, hospital, or assisted...) When possible be specific @ -No Did you speak to anyone other than the patient for history (EMS, parent, family, police, friend...)? What history was obtained from this source @ -No Did you review nursing and triage notes (agree or disagree)? Why? @ -I reviewed and agree with nursing and triage notes Were old charts reviewed (outside hosp., previous admission, EMS record, old EKG, old radiological studies, urgent care reports/EKG's, assisted records)? Report findings @ -No old charts were reviewed Differential Diagnosis (chest pain, altered mental status, abdominal pain women, abdominal pain men, vaginal bleeding, weakness, fever, dyspnea, syncope, headache, dizziness, GI bleed, back pain, seizure, CVA, palpatations, mental health, musculoskeletal)? @ -Differential Musculoskeletal Muscular strain, contusion, ligament sprain, fracture, arthritis, septic arthritis, bursitis, cellulitis, muscle spasm, nerve compression, DVT, arterial occlusion, herpes zoster, electrolyte abnormality, tumor.... This is not meant to be in all inclusive list EKG interpreted by me (3pts min.). @ -EKG at 1215 shows sinus rhythm rate 78, AR 187, QRS 123 compared to prior X-rays interpreted by me (1pt min.). @ -Chest x-ray shows mild atelectasis, cardiomegaly X-ray of the right foot shows no evidence of osteomyelitis CT interpreted by me (1pt min.). @ -None done U/S interpreted by me (1pt. min.). @ -None done What testing was considered but not performed or refused? (CT, X-rays, U/S, labs)? Why? @ -None What meds were considered but not given or refused? Why? @ -None Did you discuss the management of the patient with other professionals (professionals i.e. , PA, SURGICAL SALES REPRESENTATIVE, lab, RT, psych nurse, social media manager, director cloud transformation, teacher, court collections officer, special education case manager)? Give summary @ -Case discussed with Dr. Woods with [facility] who is accepting of the admission Was smoking cessation discussed for >3mins.? @ -No Was critical care preformed (if so, how long)? @ -No Were there social determinants of health that impacted care today? How? (Homelessness, low income, unemployed, alcoholism, drug addiction, transportation, low edu. Level, literacy, decrease access to med. care, [facility], rehab)? @ -No Was there de-escalation of care discussed even if they declined (Discuss DNR or withdrawal of care, Hospice)? DNR status @ -No What co-morbidities impacted this encounter? (DM, HTN, Smoking, COPD, CAD, Cancer, CVA, ARF, Chemo, Hep., AIDS, mental health diagnosis, sleep apnea, morbid obesity)? @ -None Was patient admitted / discharged? Hospital course, mention meds given and route, prescriptions, significant lab abnormalities, going to OR and other pertinent info. @ -Admitted patient presented to the emergency department for evaluation of bilateral lower extremity edema. He also reports having increased shortness of breath. She does have a history of CHF. Laboratory studies obtained significant forHyponatremia with a sodium of 125, BNP of 1700. UA shows no evidence of infectious process. Urine osmolality, sodium and serum osmolality pending. Chest x-ray was obtained which shows no significant acute findings. X-ray of the right foot was also obtained which shows no evidence of acute fracture or signs of osteomyelitis. Patient provided a dose of IV Lasix in the ED. Patient necessitating IV diuresis and attempt to slowly replete sodium. Case discussed with Dr. Woods who is accepting of the admission. Patient understanding and agreeable with plan. Patient stable at time of admission. Case discussed with Dr. Small Undiagnosed new problem with uncertain prognosis? @ -No Drug Therapy requiring intensive monitoring for toxicity (Heparin, Nitro, Insulin, Cardizem)? @ -No Were any procedures done? @ -No Diagnosis/symptom? @ -CHF exacerbation, hyponatremia Acute, or Chronic, or Acute on Chronic? @ -acute Uncomplicated (without systemic symptoms) or Complicated (systemic symptoms)? @ -uncomplicated Side effects of treatment? @ -No Exacerbation, Progression, or Severe Exacerbation? @ -No Poses a threat to life or bodily function? How? (Chest pain, [place], [place], pneumonia, PE, COPD, DKA, ARF, appy, cholecystitis, CVA, Diverticulitis, Homicidal, Suicidal, threat to staff... and all critical care pts) @ -No - Lab Data Result diagrams: 12/12/23 12:40 12/13/23 10:10 Lab Results 12/12/23 12/12/23 12/12/23 Range/Units 12:40 12:40 12:40 WBC 11.3 H (3.8-10.6) k/uL RBC 4.43 (3.80-5.40) m/uL Hgb 14.2 (11.4-16.0) gm/dL Hct 45.2 (34.0-46.0) % MCV 101.9 H D (80.0-100.0) fL MCH 32.0 (25.0-35.0) pg MCHC 31.4 (31.0-37.0) g/dL RDW 14.1 (11.5-15.5) % Plt Count 237 (150-450) k/uL MPV 7.1 Neutrophils % 70 % Lymphocytes % 17 % Monocytes % 9 % Eosinophils % 2 % Basophils % 1 % Neutrophils # 7.9 H (1.3-7.7) k/uL Lymphocytes # 1.9 (1.0-4.8) k/uL Monocytes # 1.0 (0-1.0) k/uL Eosinophils # 0.2 (0-0.7) k/uL Basophils # 0.1 (0-0.2) k/uL Macrocytosis Slight PT 10.9 (10.0-12.5) sec INR 1.0 (<1.2) APTT 26.7 (22.0-30.0) sec Sodium 125 L (137-145) mmol/L Potassium 5.2 H (3.5-5.1) mmol/L Chloride 96 L (98-107) mmol/L Carbon Dioxide 29 (22-30) mmol/L Anion Gap 0 mmol/L BUN 20 H (7-17) mg/dL Creatinine 0.67 (0.52-1.04) mg/dL Est GFR (CKD-EPI)AfAm >90 (>60 ml/min/1.73 sqM) Est GFR (CKD-EPI)NonAf >90 (>60 ml/min/1.73 sqM) Glucose 125 H (74-99) mg/dL Plasma Lactic Acid Joel (0.7-2.0) mmol/L Calcium 9.1 (8.4-10.2) mg/dL Total Bilirubin 0.4 (0.2-1.3) mg/dL AST 55 H (14-36) U/L ALT 27 (4-34) U/L Alkaline Phosphatase 48 (38-126) U/L NT-Pro-B Natriuret Pep 1700 pg/mL Total Protein 5.6 L (6.3-8.2) g/dL Albumin 3.4 L (3.5-5.0) g/dL 12/12/23 Range/Units 12:40 WBC (3.8-10.6) k/uL RBC (3.80-5.40) m/uL Hgb (11.4-16.0) gm/dL Hct (34.0-46.0) % MCV (80.0-100.0) fL MCH (25.0-35.0) pg MCHC (31.0-37.0) g/dL RDW (11.5-15.5) % Plt Count (150-450) k/uL MPV Neutrophils % % Lymphocytes % % Monocytes % % Eosinophils % % Basophils % % Neutrophils # (1.3-7.7) k/uL Lymphocytes # (1.0-4.8) k/uL Monocytes # (0-1.0) k/uL Eosinophils # (0-0.7) k/uL Basophils # (0-0.2) k/uL Macrocytosis PT (10.0-12.5) sec INR (<1.2) APTT (22.0-30.0) sec Sodium (137-145) mmol/L Potassium (3.5-5.1) mmol/L Chloride (98-107) mmol/L Carbon Dioxide (22-30) mmol/L Anion Gap mmol/L BUN (7-17) mg/dL Creatinine (0.52-1.04) mg/dL Est GFR (CKD-EPI)AfAm (>60 ml/min/1.73 sqM) Est GFR (CKD-EPI)NonAf (>60 ml/min/1.73 sqM) Glucose (74-99) mg/dL Plasma Lactic Acid Joel 0.8 (0.7-2.0) mmol/L Calcium (8.4-10.2) mg/dL Total Bilirubin (0.2-1.3) mg/dL AST (14-36) U/L ALT (4-34) U/L Alkaline Phosphatase (38-126) U/L NT-Pro-B Natriuret Pep pg/mL Total Protein (6.3-8.2) g/dL Albumin (3.5-5.0) g/dL Disposition Clinical Impression: CHF exacerbation, Hyponatremia, Lower extremity edema Disposition: ADMITTED IP TO THIS HOSP Condition: Stable Is patient prescribed a controlled substance at d/c from ED?: No
[2023-12-12] MEDS: clonazePAM 0.5 MG TAB PO STA (12:46)
[2023-12-12 12:47] LABS: Basophils # (A) 0.1 k/uL (0-0.2); Basophils % (A) 1 %; Eosinophils # (A) 0.2 k/uL (0-0.7); Eosinophils % (A) 2 %; HCT 45.2 % (34.0-46.0); HGB 14.2 gm/dL (11.4-16.0); Lymphocytes # (A) 1.9 k/uL (1.0-4.8); Lymphocytes % (A) 17 %; MCHC 31.4 g/dL (31.0-37.0); Macrocytosis Slight; Mean Platelet Volume 7.1; Monocytes % (A) 9 %; Neutrophils # (A) 7.9 k/uL (1.3-7.7); Neutrophils % (A) 70 %; Platelet Count 237 k/uL (150-450); RBC 4.43 m/uL (3.80-5.40); RDW 14.1 % (11.5-15.5); WBC 11.3 k/uL (3.8-10.6)
[2023-12-12] MEDS: KETOROLAC 15 MG/ML 1 ML VIAL IVP STA (12:47)
[2023-12-12 12:54] LABS: MCV 101.9 fL (80.0-100.0)
[2023-12-12 12:58] LABS: ALT 27 U/L (4-34); African American GFR (CKD) >90 (>60 ml/min/1.73 sqM); Albumin 3.4 g/dL (3.5-5.0); Anion Gap 0 mmol/L; Blood Urea Nitrogen 20 mg/dL (7-17); Calcium 9.1 mg/dL (8.4-10.2); Carbon Dioxide 29 mmol/L (22-30); Chloride 96 mmol/L (98-107); Glucose 125 mg/dL (74-99); Non-African American GFR(CKD) >90 (>60 ml/min/1.73 sqM); Sodium 125 mmol/L (137-145); Total Bilirubin 0.4 mg/dL (0.2-1.3); Total Protein 5.6 g/dL (6.3-8.2)
[2023-12-12 13:02] LABS: AST 55 U/L (14-36); Alkaline Phosphatase 48 U/L (38-126); Potassium 5.2 mmol/L (3.5-5.1)
[2023-12-12 13:03] LABS: Partial Thromboplastin Time 26.7 sec (22.0-30.0); Prothrombin Time 10.9 sec (10.0-12.5)
[2023-12-12 13:06] LABS: NT-Pro-B-Type Natriuretic Pept 1700 pg/mL
--- NOTE | 2023-12-12 14:00 | XR ---
EXAMINATION TYPE: XR foot complete RT DATE OF EXAM: 12/12/2023 COMPARISON: None HISTORY: Ulcer base of the first metatarsal to the talus region TECHNIQUE: 3 view right foot FINDINGS: No acute fractures or dislocations evident. Joint spaces are preserved. Small spurs at the distal lateral portion proximal phalanx fourth digit. Hammertoes are present. Plantar calcaneal heel spur is present. Soft tissues appear unremarkable. No suspicious erosions to suggest acute osteomyelitis radiographica lly apparent. Follow-up 3 phase bone scan can be performed for sufficient clinical suspicion for oste omyelitis. IMPRESSION: 1. No acute osseous abnormality right foot.
--- NOTE | 2023-12-12 14:03 | XR ---
EXAMINATION TYPE: XR chest 2V DATE OF EXAM: 12/12/2023 COMPARISON: 10/24/2023 INDICATION: Difficulty breathing TECHNIQUE: Frontal and lateral views of the chest are obtained. FINDINGS: The heart size is somewhat prominent. The pulmonary vasculature is normal. Some mild linear opacity at the right base may be present. Correlate for atelectasis. Minimal right p leural effusion may be present. There is some elevation left diaphragm.. IMPRESSION: 1. Mild atelectatic changes suspected at the right lung base. 2. Cardiomegaly.
[2023-12-12] MEDS: MORPHINE SULFATE 4 MG/ML SYRINGE IVP STA (14:45)
[2023-12-12] MEDS: ONDANSETRON 4 MG/2 ML VIAL IVP STA (14:45)
[2023-12-12] MEDS: FUROSEMIDE 10 MG/ML 2 ML VIAL IV ONE (17:48)
[2023-12-12 17:49] LABS: Appearance,Urine Clear (Clear); Bilirubin,Urine Negative (Negative); Blood,Urine Negative (Negative); Color,Urine Yellow; Glucose,Urine (UA) Negative (Negative); Ketones,Urine Negative (Negative); Leukocyte Esterase,Urine Negative (Negative); Nitrite,Urine Negative (Negative); Protein,Urine Negative (Negative); Specific Gravity,Urine 1.022 (1.001-1.035); Urobilinogen,Urine <2.0 mg/dL (<2.0)
[2023-12-12] MEDS ORDERED: NALOXONE 0.4 MG/ML 1 ML VIAL IV PRN (18:12)
[2023-12-12] MEDS: SYMBICORT 160-4.5 MCG INHALER INHALATION SCH (19:39)
[2023-12-12] MEDS: lamoTRIgine 100 MG TAB PO SCH (20:59)
[2023-12-12] MEDS: HYDROcodone/APAP 5-325MG 1 EACH TAB PO SCH (21:00)
[2023-12-12] MEDS: FAMOTIDINE 20 MG TAB PO SCH (21:01)
[2023-12-12] MEDS: GABAPENTIN 400 MG CAP PO SCH (21:01)
[2023-12-12] MEDS: OLANZapine 7.5 MG TAB PO SCH (21:02)
[2023-12-12] MEDS: DIVALPROEX ER 250 MG TAB.ER.24H PO SCH (21:02)
[2023-12-13 01:40] LABS: Glucose,Whole Blood 87 mg/dL (70-110)
[2023-12-13] MEDS: ALBUTEROL NEBULIZED 2.5 MG/3 ML INHALATION PRN (02:02)
[2023-12-13] MEDS: MORPHINE SULFATE 4 MG/ML SYRINGE IV PRN (04:03)
[2023-12-13 06:07] LABS: Glucose,Whole Blood 79 mg/dL (70-110)
[2023-12-13] MEDS: LEVOTHYROXINE 75 MCG TAB PO SCH (06:17)
[2023-12-13] MEDS: IPRATROPIUM-ALBUTEROL 3 ML NEB INHALATION PRN (07:56)
[2023-12-13] MEDS: THIAMINE 100 MG TAB PO SCH (08:18)
[2023-12-13] MEDS: lisinopriL 20 MG TAB PO SCH (08:18)
[2023-12-13] MEDS: FERROUS SULFATE 325 MG TAB PO SCH (08:18)
[2023-12-13] MEDS: clonazePAM 0.5 MG TAB PO SCH (08:19)
[2023-12-13] MEDS: TAMSULOSIN 0.4 MG CAP.ER.24H PO SCH (08:19)
[2023-12-13] MEDS: amLODIPine 5 MG TAB PO SCH (08:19)
[2023-12-13] MEDS: MONTELUKAST 10 MG TAB PO SCH (08:20)
--- NOTE | 2023-12-13 10:06 | P.CRDCN ---
History of Present Illness Consult date: 12/13/23 Consult reason: congestive heart failure History of present illness: History of present illness: This is a 68-year-old female patient of Dr. Last with past medical history of COPD, diabetes mellitus type 2, fibromyalgia, hypertension, chronic diastolic heart failure with EF of 55%, pulmonary embolism, chronic hypoxic respiratory failure on home O2, gastroesophageal reflux disease, hypothyroidism, degenerative disease of the cervical and lumbar spine, tobacco use and dependence. We have been asked to evaluate the patient for CHF. Patient presented to the emergency department due to lower extremity edema that has been present for the past 2 weeks. She saw her primary care doctor on Wednesday and was started on diuretic. She has not noted much improvement and she is complaining of significant pain to her legs with the swelling. She states the leg swelling started from Shingles with blisters and extreme pain. No fever or chills. Patient has been using more salt on her food. Also complains of sores in her mouth. She does have some minimal increased shortness of breath. She is smoking one ppd. No alcohol use or drug use. Patient was recently seen in the hospital for atypical chest pain on 10/24/2023. Patient is status post 1 dose of IV Lasix 20 mg. Patient states edema is improved. EKG sinus rhythm at 78 bpm Chest x-ray: Mild atelectatic changes suspected at the right lung base. Cardiomegaly. Right foot x-ray: No osseous abnormality Laboratory studies: WBC 11.3, hemoglobin 14.2. INR 1. Sodium 125, potassium 5.2, chloride 96, CO2 29, BUN 20 creatinine 0.67. Blood sugar 125. AST 55 otherwise liver function test are normal. proBNP 1700. Urinalysis negative for infection. Home cardiac medications: Amlodipine 5 mg daily, lisinopril 20 mg daily, Lopressor 25 mg twice daily, Nitrostat as needed, also on levothyroxine 150 mcg daily. Cardiac catheterization 2014 did not reveal any significant disease Lexiscan Cardiolite stress test performed 01/27/2023 revealed fixed inferior perfusion defect consistent with diaphragmatic attenuation artifact. No other myocardial perfusion defects to suggest ischemia. Normal left ventricular EF 60%. Echocardiogram performed on 11/13/2022 revealed EF of 55%. Mild increased left ventricular wall thickness. Trace to mild mitral digitation. Mild tricuspid regurgitation. RVSP 19. Review Of Systems: At the time of my exam: CONSTITUTIONAL: Denies fever or chills. HEENT: Denies blurred vision, vision changes, or eye pain. Denies hemoptysis CARDIOVASCULAR: Denies chest pain. Denies orthopnea. Denies PND. Denies palpitations. + edema LE RESPIRATORY: Denies shortness of breath. GASTROINTESTINAL: Denies abdominal pain. Denies nausea or vomiting. HEMATOLOGIC: Denies bleeding disorders. GENITOURINARY: Denies any blood in urine. SKIN: Denies pruitis. Denies rash. Wounds bilat LE. Physical examination: Gen: This is a 68-year-old female appears to be in no acute distress. VS: reviewed, blood pressure 174/74, heart rate 71, pulse ox 92% on 6 L nasal cannula. HEENT: Head is atraumatic, normocephalic. Pupils equal, round. Sclerae is anicteric. NECK: Supple. No JVD. LUNGS: Clear with diminished bases. No intercostal retractions. HEART: Regular rate and rhythm. No murmur. ABDOMEN: Soft No tenderness. EXTREMITIES: 1+ pedal edema bilat with bilat small ulcers, + palpable DP. No calf tenderness. NEUROLOGICAL: Patient is awake, alert and oriented x3. Assessment: Hyponatremia Acute on chronic diastolic heart failure with known EF of 55% COPD Hypertension Small ulcers to bilat LE History of pulmonary embolism Chronic hypoxic respiratory failure on home O2 Tobacco use and dependence Plan: Resume patient's home cardiac medications Start patient on IV Lasix 40 mg daily Monitor TESSY, daily weights, electrolytes and renal function Obtain 2-D echocardiogram and Doppler study to assess cardiac structure and function Further recommendations to follow based upon clinical course Thank you kindly for this consultation. Nurse practitioner note has been reviewed, I agree with documented findings and plan of care. Patient was seen and examined. Past Medical History Past Medical History: Asthma, Heart Failure, COPD, Diabetes Mellitus, Fibromyalgia, GERD/Reflux, Hypertension, Osteoarthritis (OA), Pneumonia, Pulmonary Embolus (PE), Skin Disorder, Thyroid Disorder Additional Past Medical History / Comment(s): Spinal Stenosis, Cervical disc disease/stenosis, scoliosis, recently having numbness/tingling L side of face/neck, recently saw chemist for L hemidiaphragmatic elevation-pt [facility] she was told this was probably genetic, recently bronchitis and past bronchitis, pt states recent med change (water pill) d/t electrolyte problem/kidney function being affected, pt states she has had pulmonary emboli, past bilateral lower extremity cellulitis, edema lower extremities, IBS, hemor rhoids, benign colon polyps, sinus problems, UTIs, bacteremia/sepsis, cardiac murmur, past L ankle and L wrist fractures. History of Any Multi-Drug Resistant Organisms: None Reported Past Surgical History: Section, Cholecystectomy, Hysterectomy, Tonsillectomy Additional Past Surgical History / Comment(s): EGD, colonoscopies, gastric bypass, surgery for deviated septum, left cataract removal 11/24/23 Past Anesthesia/Blood Transfusion Reactions: Previous Problems w/ Anesthesia Additional Past Anesthesia/Blood Transfusion Reaction / Comment(s): itching after hysterectomy, some kind of breathing problem after gastric bypass-not sure what happened Past Psychological History: Anxiety, Bipolar, Depression, Panic Disorder Smoking Status: Current every day smoker Past Alcohol Use History: None Reported Additional Past Alcohol Use History / Comment(s): Pt started smoking in 1986 and quit when she went into [facility] 08/2021, started again after discharge from [facility] 05/2022 Past Drug Use History: Marijuana - Past Family History Mother Family Medical History: Congestive Heart Failure (CHF), Hypertension Father Additional Family Medical History / Comment(s): Father at the age of 45 yrs d/t having had rheumatic fever as a child and heart valve disease. Medications and Allergies Home Medications Medication Instructions Recorded Confirmed Type Montelukast [Singulair] 10 mg PO DAILY 12/17/13 12/12/23 History Levothyroxine Sodium [Synthroid] 150 mcg PO DAILY 03/29/20 12/12/23 History Budesonide/Formoterol Fumarate 2 puff INHALATION RT-BID 06/12/21 12/12/23 History [Symbicort 160-4.5 Mcg Inhaler] Famotidine [Pepcid] 20 mg PO BID 09/03/21 12/12/23 History Divalproex ER [Depakote ER] 250 mg PO HS 10/07/21 12/12/23 History Tamsulosin [Flomax] 0.4 mg PO DAILY 10/26/21 12/12/23 History Ferrous Sulfate [Iron (65 MG 325 mg PO DAILY 11/13/22 12/12/23 History Elemental)] Ipratropium-Albuterol Nebulize 3 ml INHALATION RT-QID PRN 11/13/22 12/12/23 History [Duoneb 0.5 mg-3 mg/3 ml Soln] Metoprolol Tartrate [Lopressor] 25 mg PO BID 11/13/22 12/12/23 History Thiamine [Vitamin B-1] 100 mg PO DAILY 11/13/22 12/12/23 History Albuterol Inhaler [Ventolin Hfa 2 puff INHALATION RT-QID PRN #1 11/17/22 12/12/23 Rx Inhaler] each Ibandronate Sodium [Boniva] 150 mg PO Q30D 05/03/23 12/12/23 History Melatonin 5 mg PO HS PRN 05/03/23 12/12/23 History lisinopriL [Zestril] 20 mg PO DAILY 05/03/23 12/12/23 History Acetaminophen [Tylenol Arthritis] 650 mg PO Q4HR PRN 10/24/23 12/12/23 History OLANZapine 15 mg PO HS 10/24/23 12/12/23 History lamoTRIgine [LaMICtal] 150 mg PO BID 10/24/23 12/12/23 History Nitroglycerin Sl Tabs [Nitrostat] 0.4 mg SL Q5M PRN 11/01/23 12/12/23 History Gabapentin 800 mg PO DIRECTED 12/12/23 12/12/23 History HYDROcodone/APAP 5-325MG [[place] 1 tab PO BID 12/12/23 12/12/23 History 5-325] Venlafaxine HCl [Effexor XR] 150 mg PO DAILY 12/12/23 12/12/23 History amLODIPine [Norvasc] 5 mg PO DAILY 12/12/23 12/12/23 History clonazePAM [Klonopin ODT] 0.25 mg PO DAILY 12/12/23 12/12/23 History Allergies Allergy/AdvReac Type Severity Reaction Status Date / Time codeine Allergy Unknown Verified 12/12/23 14:37 Childhood Penicillins Allergy Rash/Hives Verified 12/12/23 14:37 Sulfa (Sulfonamide Allergy Rash/Hives Verified 12/12/23 14:37 Antibiotics) Physical Exam Vitals: Vital Signs Temp Pulse Pulse Resp BP BP Pulse Ox 12/13/23 03:29 174/74 12/13/23 03:12 71 14 12/13/23 02:37 97.5 F L 71 22 183/90 92 L 12/13/23 02:12 95 12/13/23 02:10 78 95 12/13/23 02:08 78 12/13/23 02:05 71 12/13/23 01:48 72 18 88 L 12/13/23 01:00 73 22 166/81 92 L 12/13/23 00:06 66 20 138/67 96 12/12/23 23:21 63 20 117/55 96 12/12/23 21:05 68 18 136/65 92 L 12/12/23 19:41 95 12/12/23 19:14 68 18 136/65 96 12/12/23 18:26 89 L 12/12/23 18:12 138/58 12/12/23 17:50 80 20 147/79 87 L 12/12/23 16:35 70 20 136/59 85 L 12/12/23 14:13 67 20 130/65 88 L 12/12/23 11:52 98.3 F 70 18 100/57 88 L Intake and Output 12/12/23 12/13/23 12/13/23 22:59 06:59 14:59 Intake Total 10 Output Total 400 Balance -390 Intake: IV 10 Invasive Line 1 10 Output: Urine 400 Other: Voiding Method Diaper External Catheter Weight 76.5 kg Results 12/12/23 12:40 12/12/23 12:40 Cardiac Enzymes 12/12/23 Range/Units 12:40 AST 55 H (14-36) U/L Coagulation 12/12/23 Range/Units 12:40 PT 10.9 (10.0-12.5) sec APTT 26.7 (22.0-30.0) sec CBC 12/12/23 Range/Units 12:40 WBC 11.3 H (3.8-10.6) k/uL RBC 4.43 (3.80-5.40) m/uL Hgb 14.2 (11.4-16.0) gm/dL Hct 45.2 (34.0-46.0) % Plt Count 237 (150-450) k/uL Comprehensive Metabolic Panel 12/12/23 Range/Units 12:40 Sodium 125 L (137-145) mmol/L Potassium 5.2 H (3.5-5.1) mmol/L Chloride 96 L (98-107) mmol/L Carbon Dioxide 29 (22-30) mmol/L BUN 20 H (7-17) mg/dL Creatinine 0.67 (0.52-1.04) mg/dL Glucose 125 H (74-99) mg/dL Calcium 9.1 (8.4-10.2) mg/dL AST 55 H (14-36) U/L ALT 27 (4-34) U/L Alkaline Phosphatase 48 (38-126) U/L Total Protein 5.6 L (6.3-8.2) g/dL Albumin 3.4 L (3.5-5.0) g/dL Current Medications Generic Name Dose Route Start Last Admin Trade Name Freq PRN Reason Stop Dose Admin Acetaminophen 650 mg 12/12/23 16:47 Acetaminophen Tab 325 Mg Tab PO Q4HR PRN Pain Hydrocodone Bitart/Acetaminophen 1 each 12/12/23 21:00 12/12/23 21:00 Hydrocodone/Apap 5-325mg 1 Each Tab PO 1 each BID JEIMY Administration Albuterol Sulfate 2.5 mg 12/12/23 16:47 12/13/23 02:02 Albuterol Nebulized 2.5 Mg/3 Ml INHALATION 2.5 mg RT-QID PRN Administration Shortness Of Breath Albuterol/Ipratropium 3 ml 12/12/23 16:47 12/13/23 07:56 Ipratropium-Albuterol 3 Ml Neb INHALATION 3 ml RT-QID PRN Administration Shortness Of Breath Amlodipine Besylate 5 mg 12/13/23 09:00 Amlodipine 5 Mg Tab PO DAILY JEIMY Budesonide/Formoterol Fumarate 2 puff 12/12/23 20:00 12/13/23 07:57 Symbicort 160-4.5 Mcg Inhaler INHALATION 2 puff RT-BID JEIMY Administration Clonazepam 0.25 mg 12/13/23 09:00 Clonazepam 0.5 Mg Tab PO DAILY JEIMY Divalproex Sodium 250 mg 12/12/23 21:00 12/12/23 21:02 Divalproex Er 250 Mg Tab.Er.24h PO 250 mg JEIMY Administration Famotidine 20 mg 12/12/23 21:00 12/12/23 21:01 Famotidine 20 Mg Tab PO 20 mg BID JEIMY Administration Ferrous Sulfate 325 mg 12/13/23 09:00 Ferrous Sulfate 325 Mg Tab PO DAILY [facility] Gabapentin 800 mg 12/12/23 21:00 12/12/23 21:01 Gabapentin 400 Mg Cap PO 800 mg BID JEIMY Administration Lamotrigine 150 mg 12/12/23 21:00 12/12/23 20:59 Lamotrigine 100 Mg Tab PO 150 mg BID JEIMY Administration Levothyroxine Sodium 150 mcg 12/13/23 06:30 12/13/23 06:17 Levothyroxine 75 Mcg Tab PO 150 mcg DAILY@0630 JEIMY Administration Lisinopril 20 mg 12/13/23 09:00 Lisinopril 20 Mg Tab PO DAILY [facility] Melatonin 5 mg 12/12/23 16:47 Melatonin 5 Mg Tablet PO HS PRN Insomnia Montelukast Sodium 10 mg 12/13/23 09:00 Montelukast 10 Mg Tab PO DAILY [facility] Morphine Sulfate 4 mg 12/12/23 18:12 12/13/23 04:03 Morphine Sulfate 4 Mg/Ml Syringe IV 4 mg Q4HR PRN Administration Severe Pain (Scale 7 to 10) Naloxone HCl 0.2 mg 12/12/23 18:12 Naloxone 0.4 Mg/Ml 1 Ml Vial IV Q2M PRN Opioid Reversal Olanzapine 15 mg 12/12/23 21:00 12/12/23 21:02 Olanzapine 7.5 Mg Tab PO 15 mg HS JEIMY Administration Ondansetron HCl 4 mg 12/12/23 18:12 Ondansetron 4 Mg/2 Ml Vial IVP Q8HR PRN Nausea And Vomiting Tamsulosin HCl 0.4 mg 12/13/23 09:00 Tamsulosin 0.4 Mg Cap.Er.24h PO DAILY [facility] Thiamine HCl 100 mg 12/13/23 09:00 Thiamine 100 Mg Tab PO DAILY [facility] Venlafaxine HCl 150 mg 12/13/23 09:00 Venlafaxine Hcl Er 150 Mg Cap PO DAILY [facility] Intake and Output 12/12/23 12/13/23 12/13/23 22:59 06:59 14:59 Intake Total 10 Output Total 400 Balance -390 Intake: IV 10 Invasive Line 1 10 Output: Urine 400 Other: Voiding Method Diaper External Catheter Weight 76.5 kg 12/12/23 12:40 12/12/23 12:40
[2023-12-13 10:35] LABS: African American GFR (CKD) >90 (>60 ml/min/1.73 sqM); Anion Gap -1 mmol/L; Blood Urea Nitrogen 12 mg/dL (7-17); Calcium 9.1 mg/dL (8.4-10.2); Carbon Dioxide 32 mmol/L (22-30); Chloride 98 mmol/L (98-107); Glucose 73 mg/dL (74-99); Magnesium 1.5 mg/dL (1.6-2.3); Non-African American GFR(CKD) >90 (>60 ml/min/1.73 sqM); Potassium 4.7 mmol/L (3.5-5.1); Sodium 129 mmol/L (137-145)
--- NOTE | 2023-12-13 10:36 | P.NPCON ---
History of Present Illness - Reason for Consult hyponatremia - History of Present Illness Reason for consultation: Hyponatremia History of present illness: Patient is a 68-year-old female seen in renal consultation for hyponatremia. Patient sodium level on admission was 125. Creatinine 0.67. Patient came to the hospital due to right-sided hip pain and leg pain. Patient states pains been present for about 10 days now. She denies any trauma or falls. She denies vomiting or diarrhea but is feeling nauseous. Patient has history of COPD and is home oxygen dependent. She continues to smoke 1-1/2 packs/day. She does admit to drinking 6 to 7 cans of pop daily as well as 3 cups of coffee. She den ies alcohol use. Denies personal history of malignancy. Patient also states she was given Lasix which she took for about 5 days prior to admission. Has been voiding. No hematuria or dysuria. Blood pressure on the higher side. Chest x-ray showed mild atelectatic changes and cardiomegaly. Patient has history of diastolic CHF. Vital signs are stable. General: No acute distress. HEENT: Head exam is unremarkable. On nasal cannula. LUNGS: No audible rhonchi or wheezes. HEART: Rate and Rhythm are regular. ABDOMEN: Nontender. EXTREMITITES: 1+ edema. Past Medical History Past Medical History: Asthma, Heart Failure, COPD, Diabetes Mellitus, Fibromyalgia, GERD/Reflux, Hypertension, Osteoarthritis (OA), Pneumonia, Pulmonary Embolus (PE), Skin Disorder, Thyroid Disorder Additional Past Medical History / Comment(s): Spinal Stenosis, Cervical disc disease/stenosis, scoliosis, recently having numbness/tingling L side of face/n yessenia, recently saw line crewman for L hemidiaphragmatic elevation-pt states she was told this was probably genetic, recently bronchitis and past bronchitis, pt states recent med change (water pill) d/t electrolyte problem/kidney function being affected, pt states she has had pulmonary emboli, past bilateral lower extremity cellulitis, edema lower extremities, IBS, hemorrhoids, benign colon polyps, sinus problems, UTIs, bacteremia/sepsis, cardiac murmur, past L ankle and L wrist fractures. History of Any Multi-Drug Resistant Organisms: None Reported Past Surgical History: Section, Cholecystectomy, Hysterectomy, Tonsillectomy Additional Past Surgical History / Comment(s): EGD, colonoscopies, gastric bypass, surgery for deviated septum, left cataract removal 11/24/23 Past Anesthesia/Blood Transfusion Reactions: Previous Problems w/ Anesthesia Additional Past Anesthesia/Blood Transfusion Reaction / Comment(s): itching after hysterectomy, some kind of breathing problem after gastric bypass-not sure what happened Past Psychological History: Anxiety, Bipolar, Depression, Panic Disorder Smoking Status: Current every day smoker Past Alcohol Use History: None Reported Additional Past Alcohol Use History / Comment(s): Pt started smoking in 1986 and quit when she went into [facility] 08/2021, started again after discharge from [facility] 05/2022 Past Drug Use History: Marijuana - Past Family History Mother Family Medical History: Congestive Heart Failure (CHF), Hypertension Father Additional Family Medical History / Comment(s): Father at the age of 45 yrs d/t having had rheumatic fever as a child and heart valve disease. Medications and Allergies Home Medications Medication Instructions Recorded Confirmed Type RX: Montelukast [Singulair] 10 mg PO DAILY 12/17/13 12/12/23 History RX: Levothyroxine Sodium 150 mcg PO DAILY 03/29/20 12/12/23 History [Synthroid] RX: Budesonide/Formoterol Fumarate 2 puff INHALATION RT-BID 06/12/21 12/12/23 History [Symbicort 160-4.5 Mcg Inhaler] RX: Famotidine [Pepcid] 20 mg PO BID 09/03/21 12/12/23 History RX: Divalproex ER [Depakote ER] 250 mg PO HS 10/07/21 12/12/23 History RX: Tamsulosin [Flomax] 0.4 mg PO DAILY 10/26/21 12/12/23 History RX: Ferrous Sulfate [Iron (65 MG 325 mg PO DAILY 11/13/22 12/12/23 History Elemental)] RX: Ipratropium-Albuterol Nebulize 3 ml INHALATION RT-QID PRN 11/13/22 12/12/23 History [Duoneb 0.5 mg-3 mg/3 ml Soln] RX: Metoprolol Tartrate [Lopressor] 25 mg PO BID 11/13/22 12/12/23 History RX: Thiamine [Vitamin B-1] 100 mg PO DAILY 11/13/22 12/12/23 History RX: Albuterol Inhaler [Ventolin 2 puff INHALATION RT-QID PRN #1 11/17/22 12/12/23 Rx Hfa Inhaler] each RX: Ibandronate Sodium [Boniva] 150 mg PO Q30D 05/03/23 12/12/23 History RX: Melatonin 5 mg PO HS PRN 05/03/23 12/12/23 History RX: lisinopriL [Zestril] 20 mg PO DAILY 05/03/23 12/12/23 History RX: Acetaminophen [Tylenol 650 mg PO Q4HR PRN 10/24/23 12/12/23 History Arthritis] RX: OLANZapine 15 mg PO HS 10/24/23 12/12/23 History RX: lamoTRIgine [LaMICtal] 150 mg PO BID 10/24/23 12/12/23 History RX: Nitroglycerin Sl Tabs 0.4 mg SL Q5M PRN 11/01/23 12/12/23 History [Nitrostat] HYDROcodone/APAP 5-325MG [[place] 1 tab PO BID 12/12/23 12/12/23 History 5-325] RX: Gabapentin 800 mg PO DIRECTED 12/12/23 12/12/23 History Venlafaxine HCl [Effexor XR] 150 mg PO DAILY 12/12/23 12/12/23 History amLODIPine [Norvasc] 5 mg PO DAILY 12/12/23 12/12/23 History clonazePAM [Klonopin ODT] 0.25 mg PO DAILY 12/12/23 12/12/23 History Allergies Allergy/AdvReac Type Severity Reaction Status Date / Time codeine Allergy Unknown Verified 12/12/23 14:37 Childhood Penicillins Allergy Rash/Hives Verified 12/12/23 14:37 Sulfa (Sulfonamide Allergy Rash/Hives Verified 12/12/23 14:37 Antibiotics) Physical Exam Vitals: Vital Signs Temp Pulse Pulse Resp BP BP Pulse Ox 12/13/23 08:11 84 12/13/23 08:03 92 L 12/13/23 07:59 82 12/13/23 03:29 174/74 12/13/23 03:12 71 14 12/13/23 02:37 97.5 F L 71 22 183/90 92 L 12/13/23 02:12 95 12/13/23 02:10 78 95 12/13/23 02:08 78 12/13/23 02:05 71 12/13/23 01:48 72 18 88 L 12/13/23 01:00 73 22 166/81 92 L 12/13/23 00:06 66 20 138/67 96 12/12/23 23:21 63 20 117/55 96 12/12/23 21:05 68 18 136/65 92 L 12/12/23 19:41 95 12/12/23 19:14 68 18 136/65 96 12/12/23 18:26 89 L 12/12/23 18:12 138/58 12/12/23 17:50 80 20 147/79 87 L 12/12/23 16:35 70 20 136/59 85 L 12/12/23 14:13 67 20 130/65 88 L 12/12/23 11:52 98.3 F 70 18 100/57 88 L Intake and Output 12/12/23 12/13/23 12/13/23 22:59 06:59 14:59 Intake Total 10 Output Total 400 Balance -390 Intake: IV 10 Invasive Line 1 10 Output: Urine 400 Other: Voiding Method Diaper External Catheter # Voids 4 Weight 76.5 kg Results - Lab Results Most recent lab results Calcium 9.1 mg/dL (8.4-10.2) 12/12/23 12:40 12/12/23 12:40 12/12/23 12:40 Assessment and Plan Plan: Assessment: 1. Hyponatremia. Hypervolemic and component of excess fluid intake. Sodium 125 on admission. Urine sodium 37 and urine osmolality 479. 2. Acute on chronic diastolic CHF. 3. Edema. 4. Benign hypertension. 5. Tobacco abuse. Plan: Maintain IV Lasix 40 mg once daily. Add 1200 cc fluid restriction. Check TSH. Follow-up echocardiogram. Repeat labs in the morning. Thank you for the consultation. I will continue to follow the patient with you during her hospital stay.
[2023-12-13 11:41] LABS: Glucose,Whole Blood 71 mg/dL (70-110)
[2023-12-13] MEDS: ONDANSETRON 4 MG/2 ML VIAL IVP PRN (11:46)
[2023-12-13] MEDS: FUROSEMIDE 10 MG/ML 4 ML VIAL IV SCH (11:46)
[2023-12-13] MEDS: VENLAFAXINE HCL ER 150 MG CAP PO SCH (11:56)
--- NOTE | 2023-12-13 13:54 | P.HPIM ---
History of Present Illness H&P Date: 12/13/23 History of present illness; patient 68-year-old lady with past medical history significant for COPD, fibromyalgia, hypertension, chronic diastolic heart failure with EF of 55%, pulmonary embolism, chronic hypoxic respiratory failure on home O2,n who presented to the ER for worsening lower extremity swelling. Patient stated that she was all right 2 weeks back when he started noticing that her legs were getting more swollen. Patient also complaining of shortness of breath on exertion. Denied any chest pain. There is no complaint of orthopnea or PND. Patient does admit to using more salt in her diet. No complaint nausea, vomiting or abdominal pain. Because of the swelling of extremities, patient saw her PCP who started her on water pill. Initial lab work done in the ER showed WBC 11.3, hemoglobin 14.2, platelet count 237, INR 1, sodium 125, potassium 5.2, BUN 20, creatinine 0.67 glucose 125, AST 55, ALT 27, total protein 5.6, albumin 3.4 EKG done in the ER showed heart rate of78 , no ST segment elevation or depression seen, no T-wave inversions seen. Chest x-ray done in the ER mild atelectatic changes suspected at the right lung base, cardiomegaly Patient admitted to internal medicine service REVIEW OF SYSTEMS: CONSTITUTIONAL: No fever, no malaise, no fatigue. HEENT: No recent visual problems or hearing problems. Denied any sore throat. CARDIOVASCULAR: No chest pain, orthopnea, PND, no palpitations, no syncope. PULMONARY: As mentioned in HPI GASTROINTESTINAL: No diarrhea, no nausea, no vomiting, no abdominal pain. NEUROLOGICAL: No headaches, no weakness, no numbness. HEMATOLOGICAL: Denies any bleeding or petechiae. GENITOURINARY: Denies any burning micturition, frequency, or urgency. MUSCULOSKELETAL/RHEUMATOLOGICAL: Denies any joint pain, swelling, or any muscle pain. ENDOCRINE: Denies any polyuria or polydipsia. The rest of the 14-point review of systems is negative. PHYSICAL EXAMINATION: GENERAL: The patient is alert and oriented x3, not in any acute distress. Well developed, well nourished. HEENT: Pupils are round and equally reacting to light. EOMI. No scleral icterus. No conjunctival pallor. Normocephalic, atraumatic. No pharyngeal erythema. No thyromegaly. CARDIOVASCULAR: S1 and S2 present. No murmurs, rubs, or gallops. PULMONARY: Chest is clear to auscultation, no wheezing or crackles. ABDOMEN: Soft, nontender, nondistended, normoactive bowel sounds. No palpable organomegaly. MUSCULOSKELETAL: No joint swelling or deformity. EXTREMITIES: 2+ pitting edema lower extremities bilaterally NEUROLOGICAL: Gross neurological examination did not reveal any focal deficits. SKIN: No rashes. Assessment and plan Hyponatremia Hyperkalemia Acute on chronic diastolic heart failure with known EF of 55% COPD Hypertension Hypothyroidism Small ulcers to bilat LE History of pulmonary embolism Chronic hypoxic respiratory failure on home O2 Tobacco use and dependence Monitor vital signs Monitor CBC Monitor CMP Continue telemetry monitoring Check I's and O's Daily weights Continue low-salt diet Start IV Lasix 40 mg daily Ordered 2D echo Nephrology consulted Cardiology consulted Labs and medication were reviewed.. Continue same treatment. Continue with symptomatic treatment. Resume home medication. Monitor labs and vitals. DVT and GI prophylaxis. Further recommendations as per clinical course of the patient Dictation was produced using [employer] dictation software. please excuse any grammatical, word or spelling errors. Past Medical History Past Medical History: Asthma, Heart Failure, COPD, Diabetes Mellitus, Fibromyalgia, GERD/Reflux, Hypertension, Osteoarthritis (OA), Pneumonia, Pulmonary Embolus (PE), Skin Disorder, Thyroid Disorder Additional Past Medical History / Comment(s): Spinal Stenosis, Cervical disc disease/stenosis, scoliosis, recently having numbness/tingling L side of face/neck, recently saw wool presser for L hemidiaphragmatic elevation-pt states she was told this was probably genetic, recently bronchitis and past bronchitis, pt states recent med change (water pill) d/t electrolyte problem/kidney function being affected, pt states she has had pulmonary emboli, past bilateral lower extremity cellulitis, edema lower extremities, IBS, hemorrhoids, benign colon polyps, sinus problems, UTIs, bacteremia/sepsis, cardiac murmur, past L ankle and L wrist fractures. History of Any Multi-Drug Resistant Organisms: None Reported Past Surgical History: Section, Cholecystectomy, Hysterectomy, Tonsillectomy Additional Past Surgical History / Comment(s): EGD, colonoscopies, gastric bypass, surgery for deviated septum, left cataract removal 11/24/23 Past Anesthesia/Blood Transfusion Reactions: Previous Problems w/ Anesthesia Additional Past Anesthesia/Blood Transfusion Reaction / Comment(s): itching after hysterectomy, some kind of breathing problem after gastric bypass-not sure what happened Past Psychological History: Anxiety, Bipolar, Depression, Panic Disorder Smoking Status: Current every day smoker Past Alcohol Use History: None Reported Additional Past Alcohol Use History / Comment(s): Pt started smoking in 1986 and quit when she went into [facility] 08/2021, started again after discharge from [facility] 05/2022 Past Drug Use History: Marijuana - Past Family History Mother Family Medical History: Congestive Heart Failure (CHF), Hypertension Father Additional Family Medical History / Comment(s): Father at the age of 45 yrs d/t having had rheumatic fever as a child and heart valve disease. Medications and Allergies Home Medications Medication Instructions Recorded Confirmed Type Montelukast [Singulair] 10 mg PO DAILY 12/17/13 12/12/23 History Levothyroxine Sodium [Synthroid] 150 mcg PO DAILY 03/29/20 12/12/23 History Budesonide/Formoterol Fumarate 2 puff INHALATION RT-BID 06/12/21 12/12/23 History [Symbicort 160-4.5 Mcg Inhaler] Famotidine [Pepcid] 20 mg PO BID 09/03/21 12/12/23 History Divalproex ER [Depakote ER] 250 mg PO HS 10/07/21 12/12/23 History Tamsulosin [Flomax] 0.4 mg PO DAILY 10/26/21 12/12/23 History Ferrous Sulfate [Iron (65 MG 325 mg PO DAILY 11/13/22 12/12/23 History Elemental)] Ipratropium-Albuterol Nebulize 3 ml INHALATION RT-QID PRN 11/13/22 12/12/23 History [Duoneb 0.5 mg-3 mg/3 ml Soln] Metoprolol Tartrate [Lopressor] 25 mg PO BID 11/13/22 12/12/23 History Thiamine [Vitamin B-1] 100 mg PO DAILY 11/13/22 12/12/23 History Albuterol Inhaler [Ventolin Hfa 2 puff INHALATION RT-QID PRN #1 11/17/22 12/12/23 Rx Inhaler] each Ibandronate Sodium [Boniva] 150 mg PO Q30D 10/16/23 05/26/24 History Melatonin 5 mg PO HS PRN 05/03/23 12/12/23 History lisinopriL [Zestril] 20 mg PO DAILY 05/03/23 12/12/23 History Acetaminophen [Tylenol Arthritis] 650 mg PO Q4HR PRN 10/24/23 12/12/23 History OLANZapine 15 mg PO HS 10/24/23 12/12/23 History lamoTRIgine [LaMICtal] 150 mg PO BID 10/24/23 12/12/23 History Nitroglycerin Sl Tabs [Nitrostat] 0.4 mg SL Q5M PRN 11/01/23 12/12/23 History Gabapentin 800 mg PO DIRECTED 12/12/23 12/12/23 History HYDROcodone/APAP 5-325MG [[place] 1 tab PO BID 12/12/23 12/12/23 History 5-325] Venlafaxine HCl [Effexor XR] 150 mg PO DAILY 12/12/23 12/12/23 History amLODIPine [Norvasc] 5 mg PO DAILY 12/12/23 12/12/23 History clonazePAM [Klonopin ODT] 0.25 mg PO DAILY 12/12/23 12/12/23 History Allergies Allergy/AdvReac Type Severity Reaction Status Date / Time codeine Allergy Unknown Verified 12/12/23 14:37 Childhood Penicillins Allergy Rash/Hives Verified 12/12/23 14:37 Sulfa (Sulfonamide Allergy Rash/Hives Verified 12/12/23 14:37 Antibiotics) Physical Exam Vitals: Vital Signs Temp Pulse Pulse Resp BP BP Pulse Ox 12/13/23 11:10 81 12/13/23 08:11 84 12/13/23 08:03 92 L 12/13/23 08:00 98.1 F 86 18 173/79 91 L 12/13/23 07:59 82 12/13/23 03:29 174/74 12/13/23 03:12 71 14 12/13/23 02:37 97.5 F L 71 22 183/90 92 L 12/13/23 02:12 95 12/13/23 02:10 78 95 12/13/23 02:08 78 12/13/23 02:05 71 12/13/23 01:48 72 18 88 L 12/13/23 01:00 73 22 166/81 92 L 12/13/23 00:06 66 20 138/67 96 12/12/23 23:21 63 20 117/55 96 12/12/23 21:05 68 18 136/65 92 L 12/12/23 19:41 95 12/12/23 19:14 68 18 136/65 96 12/12/23 18:26 89 L 12/12/23 18:12 138/58 12/12/23 17:50 80 20 147/79 87 L 12/12/23 16:35 70 20 136/59 85 L 12/12/23 14:13 67 20 130/65 88 L 12/12/23 11:52 98.3 F 70 18 100/57 88 L Intake and Output 12/12/23 12/13/23 12/13/23 22:59 06:59 14:59 Intake Total 10 Output Total 400 Balance -390 Intake: IV 10 Invasive Line 1 10 Output: Urine 400 Other: Voiding Method Diaper Diaper External Catheter External Catheter # Voids 4 Weight 76.5 kg Results CBC & Chem 7: 12/12/23 12:40 12/13/23 10:10 Labs: Abnormal Lab Results - Last 24 Hours (Table) 12/12/23 12/12/23 12/12/23 Range/Units 12:40 12:40 17:44 WBC 11.3 H (3.8-10.6) k/uL MCV 101.9 H D (80.0-100.0) fL Neutrophils # 7.9 H (1.3-7.7) k/uL Sodium 125 L (137-145) mmol/L Potassium 5.2 H (3.5-5.1) mmol/L Chloride 96 L (98-107) mmol/L Carbon Dioxide (22-30) mmol/L BUN 20 H (7-17) mg/dL Creatinine (0.52-1.04) mg/dL Glucose 125 H (74-99) mg/dL Magnesium (1.6-2.3) mg/dL AST 55 H (14-36) U/L Total Protein 5.6 L (6.3-8.2) g/dL Albumin 3.4 L (3.5-5.0) g/dL Ur Random Sodium 37 L (40-220) mmol/L 12/13/23 Range/Units 10:10 WBC (3.8-10.6) k/uL MCV (80.0-100.0) fL Neutrophils # (1.3-7.7) k/uL Sodium 129 L (137-145) mmol/L Potassium (3.5-5.1) mmol/L Chloride (98-107) mmol/L Carbon Dioxide 32 H (22-30) mmol/L BUN (7-17) mg/dL Creatinine 0.45 L (0.52-1.04) mg/dL Glucose 73 L (74-99) mg/dL Magnesium 1.5 L (1.6-2.3) mg/dL AST (14-36) U/L Total Protein (6.3-8.2) g/dL Albumin (3.5-5.0) g/dL Ur Random Sodium (40-220) mmol/L Thrombosis Risk Factor Assmnt - Choose All That Apply Any of the Below Risk Factors Present?: Yes Each Factor Represents 1 point: Abnormal pulmonary function (COPD), Swollen legs (current) Other Risk Factors: Yes Each Risk Factor Represents 2 Points: Age 61-74 years Thrombosis Risk Factor Assessment Total Risk Factor Score: 4 Thrombosis Risk Factor Assessment Level: Moderate Risk
[2023-12-13] MEDS: MAGNESIUM SULFATE-D5W PMX 1 GM in DEXTROSE/WATER 1 100ML.BAG IVPB SCH (15:40)
[2023-12-13 16:43] LABS: Glucose,Whole Blood 163 mg/dL (70-110)
[2023-12-13 20:18] LABS: Glucose,Whole Blood 140 mg/dL (70-110)
[2023-12-13] MEDS: NICOTINE 21MG/24HR PATCH TRANSDERM SCH (22:00)
[2023-12-14] MEDS: hydrALAZINE HCL 20 MG/ML 1 ML VIAL IVP PRN (03:16)
[2023-12-14 06:22] LABS: Glucose,Whole Blood 86 mg/dL (70-110)
[2023-12-14] MEDS: ACETAMINOPHEN TAB 325 MG TAB PO PRN (06:22)
[2023-12-14 08:57] LABS: African American GFR (CKD) >90 (>60 ml/min/1.73 sqM); Anion Gap -1 mmol/L; Blood Urea Nitrogen 13 mg/dL (7-17); Carbon Dioxide 37 mmol/L (22-30); Chloride 94 mmol/L (98-107); Glucose 62 mg/dL (74-99); Magnesium 1.6 mg/dL (1.6-2.3); Non-African American GFR(CKD) >90 (>60 ml/min/1.73 sqM); Potassium 4.3 mmol/L (3.5-5.1); Sodium 130 mmol/L (137-145)
[2023-12-14 11:47] LABS: Glucose,Whole Blood 78 mg/dL (70-110)
--- NOTE | 2023-12-14 11:48 | P.PN ---
Subjective patient is seen for follow-up for hyponatremia. No significant complaints today. Serum sodium is 1:30 today. Patient is maintained on IV Lasix. Drinking a lot of diet pop. Discussed fluid restriction with patient. Objective - Vital Signs Vital signs: Vital Signs Temp 99.1 F 12/14/23 08:00 Pulse 76 12/14/23 11:34 Resp 20 12/14/23 08:00 BP 119/62 12/14/23 08:00 Pulse Ox 94 L 12/14/23 08:00 FiO2 Intake & Output 12/13/23 12/14/23 12/14/23 18:59 06:59 18:59 Intake Total 10 0 Output Total 2150 250 950 Balance -2150 -240 -950 Weight 73 kg Intake: IV 10 Invasive Line 1 10 Oral 0 Output: Urine 2150 250 950 Other: Voiding Method Diaper Diaper Diaper External Catheter External Catheter External Catheter # Voids 4 1 - Exam patient is awake, comfortable, no acute distress. 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 Hyponatremia. Hypervolemic and component of excess fluid intake. Sodium 125 on admission. currently being diuresed. Sodium improved to 130. Urine sodium 37 and urine osmolality 479. 2. Acute on chronic diastolic CHF. 3. Edema. 4. Benign hypertension. 5. Tobacco abuse. Plan: continue with IV Lasix. Discussed fluid restriction Patient can likely be discharged tomorrow. Repeat labs in a.m.
--- NOTE | 2023-12-14 12:55 | P.PN ---
Subjective Progress Note Date: 12/14/23 patient 68-year-old lady with past medical history significant for COPD, fibromyalgia, hypertension, chronic diastolic heart failure with EF of 55%, pulmonary embolism, chronic hypoxic respiratory failure on home O2,n who presented to the ER for worsening lower extremity swelling. Patient stated that she was all right 2 weeks back when he started noticing that her legs were getting more swollen. Patient also complaining of shortness of breath on exertion. Denied any chest pain. There is no complaint of orthopnea or PND. Patient does admit to using more salt in her diet. No complaint nausea, vo miting or abdominal pain. Because of the swelling of extremities, patient saw her PCP who started her on water pill. Initial lab work done in the ER showed WBC 11.3, hemoglobin 14.2, platelet count 237, INR 1, sodium 125, potassium 5.2, BUN 20, creatinine 0.67 glucose 125, AST 55, ALT 27, total protein 5.6, albumin 3.4 EKG done in the ER showed heart rate of78 , no ST segment elevation or depress ion seen, no T-wave inversions seen. Chest x-ray done in the ER mild atelectatic changes suspected at the right lung base, cardiomegaly Patient admitted to internal medicine service 12/13. Patient seen and examined.Lab work done today showed sodium 130, potassium 4.3, BUN 13, creatinine 0.44. States swelling of legs has improved. States she feels much better REVIEW OF SYSTEMS: CONSTITUTIONAL: No fever, no malaise,. CARDIOVASCULAR: No chest pain, no palpitations, no syncope. PULMONARY: No shortness of breath, no cough, GASTROINTESTINAL: No diarrhea, no nausea, no vomiting, no abdominal pain. NEUROLOGICAL: No headaches, no weakness, PHYSICAL EXAMINATION: GENERAL: The patient is alert and oriented x3, not in any acute distress. Well developed, well nourished. HEENT: Pupils are round and equally reacting to light. EOMI. No scleral icterus. No conjunctival pallor. Normocephalic, atraumatic. No pharyngeal erythema. No thyromegaly. CARDIOVASCULAR: S1 and S2 present. No murmurs, rubs, or gallops. PULMONARY: Chest is clear to auscultation, no wheezing or crackles. ABDOMEN: Soft, nontender, nondistended, normoactive bowel sounds. No palpable organomegaly. MUSCULOSKELETAL: No joint swelling or deformity. EXTREMITIES: No cyanosis, clubbing, or pedal edema. NEUROLOGICAL: Gross neurological examination did not reveal any focal deficits. SKIN: No rashes. Assessment and plan Hyponatremia Hyperkalemia Acute on chronic diastolic heart failure with known EF of 55% COPD Hypertension Hypothyroidism Small ulcers to bilat LE History of pulmonary embolism Chronic hypoxic respiratory failure on home O2 Tobacco use and dependence Monitor vital signs Monitor CBC Monitor CMP Continue telemetry monitoring Check I's and O's Daily weights Continue low-salt diet Continue IV Lasix 40 mg daily Ordered 2D echo Nephrology following Cardiology following Labs and medication were reviewed.. Continue same treatment. Continue with symptomatic treatment. Resume home medication. Monitor labs and vitals. DVT and GI prophylaxis. Further recommendations as per clinical course of the patient Dictation was produced using [employer] dictation software. please excuse any grammatical, word or spelling errors. Objective - Vital Signs Vital signs: Vital Signs Temp 97.7 F 12/14/23 03:13 Pulse 92 12/14/23 08:26 Resp 20 12/14/23 03:13 BP 139/71 12/14/23 04:37 Pulse Ox 100 12/14/23 03:13 FiO2 Intake & Output 12/13/23 12/14/23 12/14/23 18:59 06:59 18:59 Intake Total 10 0 Output Total 2150 250 Balance -2150 -240 0 Weight 73 kg Intake: IV 10 Invasive Line 1 10 Oral 0 Output: Urine 2150 250 Other: Voiding Method Diaper Diaper External Catheter External Catheter # Voids 4 1 - Labs CBC & Chem 7: 12/12/23 12:40 12/14/23 07:36 Labs: Abnormal Lab Results - Last 24 Hours (Table) 12/13/23 12/13/23 12/14/23 Range/Units 16:42 20:17 07:36 Sodium 130 L (137-145) mmol/L Chloride 94 L (98-107) mmol/L Carbon Dioxide 37 H (22-30) mmol/L Creatinine 0.44 L (0.52-1.04) mg/dL Glucose 62 L (74-99) mg/dL POC Glucose (mg/dL) 163 H 140 H (70-110) mg/dL
[2023-12-14 14:43] VITALS: BMI 31.4
[2023-12-14 16:39] LABS: Glucose,Whole Blood 153 mg/dL (70-110)
--- NOTE | 2023-12-14 18:54 | CA ---
Transthoracic Echo Report Name: Haydee Mcpherson Age: 68 Gender: F : 1955 Exam Date: 12/14/2023 15:12 Exam Location: [place] [place] [facility] Ht (in): 60 Wt (lb): 168 Ordering Physician: Radha Gutierrez Attending/Referring Phys: [id number], Matt Sweater Operator Gisella Pereyra RDCS Procedure CPT: Indications: LVF Cardiac Hx: Technical Quality: Fair Contrast 1: Total Dose (mL): Contrast 2: Total Dose (mL): MEASUREMENTS (Male / Female) Normal Values 2D ECHO LV Diastolic Diameter PLAX 4.2 cm 4.2 - 5.9 / 3.9 - 5.3 cm LV Systolic Diameter PLAX 3.3 cm IVS Diastolic Thickness 1.2 cm 0.6 - 1.0 / 0.6 - 0.9 cm LVPW Diastolic Thickness 1.2 cm 0.6 - 1.0 / 0.6 - 0.9 cm LV Relative Wall Thickness 0.6 LVOT Diameter 1.9 cm LV Diastolic Volume MOD BP 92.9 cm??? 67 - 155 / 56 - 104 cm??? LV Systolic Volume MOD BP 36.4 cm??? 22 - 58 / 19 - 49 cm??? LV Ejection Fraction MOD BP 60.8 % >= 55 % LV Cardiac Index MOD BP 2376.2 cm???/min???m??? LV Diastolic Volume MOD 4C 87.6 cm??? LV Systolic Volume MOD 4C 35.6 cm??? LV Ejection Fraction MOD 4C 59.4 % LV Cardiac Index MOD 4C 2191.9 cm???/min???m??? LV Diastolic Length 4C 8.0 cm LV Systolic Length 4C 6.2 cm LV Diastolic Volume MOD 2C 96.9 cm??? LV Systolic Volume MOD 2C 37.1 cm??? LV Ejection Fraction MOD 2C 61.7 % LV Cardiac Index MOD 2C 2514.5 cm???/min???m??? LV Diastolic Length 2C 7.8 cm LV Systolic Length 2C 6.3 cm LA Volume 57.8 cm??? 18 - 58 / 22 - 52 cm??? LA Volume Index 31.6 cm???/m??? 16 - 28 cm???/m??? Ascending Aorta Diameter 3.6 cm DOPPLER AV Peak Velocity 179.8 cm/s AV Peak Gradient 12.9 mmHg AV Mean Velocity 132.3 cm/s AV Mean Gradient 7.8 mmHg AV Velocity Time Integral 36.6 cm LVOT Peak Velocity 129.0 cm/s LVOT Peak Gradient 6.7 mmHg LVOT Velocity Time Integral 24.7 cm LVOT Stroke Volume 71.5 cm??? LVOT Stroke Volume Index 41.3 ml/m??? LVOT Cardiac Index 3009.5 cm???/min???m??? AV Area Cont Eq vti 2.0 cm??? AV Area Cont Eq pk 2.1 cm??? MV Area PHT 3.7 cm??? Mitral E Point Velocity 58.6 cm/s Mitral A Point Velocity 73.9 cm/s Mitral E to A Ratio 0.8 MV Deceleration Time 207.4 ms PV Peak Velocity 115.2 cm/s PV Peak Gradient 5.3 mmHg FINDINGS Left Ventricle Left ventricular ejection fraction is estimated at 55-60 %. Mildly increased septal wall thickness. Mildly increased posterior wall thickness. Left ventricular cavity size normal. No obvious regional wall motion abnormalities. Right Ventricle Normal right ventricular size and function. Unable to estimate the right ventricular systolic pressure. Right Atrium Normal right atrial size. Left Atrium Mildly increased left atrial volume. Mitral Valve Mitral valve thickened. No evidence for mitral valve prolapse. No mitral stenosis. Trace mitral regurgitation. Aortic Valve Aortic valve not well visualized. No aortic valve stenosis or regurgitation. Tricuspid Valve Structurally normal tricuspid valve. No tricuspid stenosis. Trace tricuspid regurgitation. Pulmonic Valve Structurally normal pulmonic valve. No pulmonic stenosis. No pulmonic regurgitation. Pericardium No pericardial effusion. Aorta Normal size aortic root and proximal ascending aorta. CONCLUSIONS Left ventricular ejection fraction is estimated at 55-60 %. Mild concentric LVH No obvious regional wall motion abnormalities. Normal right ventricular size and function. Mild LA dilatation No significant valve dysfunction No pericardial effusion Previewed by: Dr Bradford Goode (Electronically Signed) Final Date: 14 Dec 2023 18:53
[2023-12-14 19:54] LABS: Glucose,Whole Blood 89 mg/dL (70-110)
[2023-12-14] MEDS: MELATONIN 5 MG TABLET PO PRN (20:50)
[2023-12-15 05:50] LABS: Glucose,Whole Blood 82 mg/dL (70-110)
[2023-12-15 09:27] LABS: ALT 23 U/L (4-34); AST 38 U/L (14-36); African American GFR (CKD) >90 (>60 ml/min/1.73 sqM); Albumin 3.2 g/dL (3.5-5.0); Alkaline Phosphatase 65 U/L (38-126); Anion Gap -1 mmol/L; Blood Urea Nitrogen 13 mg/dL (7-17); Calcium 9.2 mg/dL (8.4-10.2); Carbon Dioxide 40 mmol/L (22-30); Chloride 91 mmol/L (98-107); Glucose 123 mg/dL (74-99); Non-African American GFR(CKD) >90 (>60 ml/min/1.73 sqM); Potassium 4.1 mmol/L (3.5-5.1); Sodium 130 mmol/L (137-145); Total Bilirubin 0.8 mg/dL (0.2-1.3); Total Protein 5.4 g/dL (6.3-8.2)
[2023-12-15] MEDS: FUROSEMIDE 40 MG TAB PO SCH (09:48)
[2023-12-15 09:51] LABS: HCT 43.6 % (34.0-46.0); HGB 14.1 gm/dL (11.4-16.0); MCH 33.2 pg (25.0-35.0); MCHC 32.3 g/dL (31.0-37.0); MCV 102.7 fL (80.0-100.0); Macrocytosis Slight; Mean Platelet Volume 8.3; Platelet Count 210 k/uL (150-450); RBC 4.24 m/uL (3.80-5.40); WBC 10.1 k/uL (3.8-10.6)
[2023-12-15 10:26] LABS: Lymphocytes # (M) 0.81 k/uL (1.0-4.8); Monocytes # (M) 0.81 k/uL (0-1.0); Neutrophils # (M) 8.38 k/uL (1.3-7.7); Neutrophils % (M) 83 %; Nucleated Red Blood Cells 0 /100 WBC (0-0); Total Cells Counted 100
[2023-12-15 11:26] LABS: Glucose,Whole Blood 147 mg/dL (70-110)
[2023-12-15 11:42] VITALS: RESP 16; TEMP 98.5
--- NOTE | 2023-12-15 13:03 | P.DS ---
Providers Date of admission: 12/12/23 14:49 Expected date of discharge: 12/15/23 Attending physician: Richie Merchant MD Consults: 12/12/23 18:12 Consult Physician Routine Consulting Provider: Juliocesar Last Consult Reason/Comments: chf exacerbation Do you want consulting provider notified?: Yes, Notify in am 12/12/23 19:44 Consult Physician Routine Consulting Provider: Gigi Hampton Consult Reason/Comments: hyponatremia Do you want consulting provider notified?: Yes, Notify in am Primary care physician: Andrzej Wheeler Hospital Course: Discharge diagnoses; Hyponatremia Hyperkalemia Acute on chronic diastolic heart failure with known EF of 55% COPD Hypertension Hypothyroidism Small ulcers to bilat LE History of pulmonary embolism Chronic hypoxic respiratory failure on home O2 Tobacco use and dependence Hospital course; patient 68-year-old lady with past medical history significant for COPD, fibromyalgia, hypertension, chronic diastolic heart failure with EF of 55%, pulmonary embolism, chronic hypoxic respiratory failure on home O2,n who presented to the ER for worsening lower extremity swelling. Patient stated that she was all right 2 weeks back when he started noticing that her legs were getting more swollen. Patient also complaining of shortness of breath on exertion. Denied any chest pain. There is no complaint of orthopnea or PND. Patient does admit to using more salt in her diet. No complaint nausea, vomiting or abdominal pain. Because of the swelling of extremities, patient saw her PCP who started her on water pill. Initial lab work done in the ER showed WBC 11.3, hemoglobin 14.2, platelet count 237, INR 1, sodium 125, potassium 5.2, BUN 20, creatinine 0.67 glucose 125, AST 55, ALT 27, total protein 5.6, albumin 3.4 EKG done in the ER showed heart rate of78 , no ST segment elevation or depression seen, no T-wave inversions seen. Chest x-ray done in the ER mild atelectatic changes suspected at the right lung base, cardiomegaly Patient admitted to internal medicine service 12/13. Patient seen and examined.Lab work done today showed sodium 130, potassium 4.3, BUN 13, creatinine 0.44. States swelling of legs has improved. States she feels much better 12/14. Patient seen and examined. Swelling of lower extremities has improved. Being discharged on Lasix 40 mg daily. Outpatient follow-up with cardiology PHYSICAL EXAMINATION: GENERAL: The patient is alert and oriented x3, not in any acute distress. Well developed, well nourished. HEENT: Pupils are round and equally reacting to light. EOMI. No scleral icterus. No conjunctival pallor. Normocephalic, atraumatic. No pharyngeal erythema. No thyromegaly. CARDIOVASCULAR: S1 and S2 present. No murmurs, rubs, or gallops. PULMONARY: Chest is clear to auscultation, no wheezing or crackles. ABDOMEN: Soft, nontender, nondistended, normoactive bowel sounds. No palpable organomegaly. MUSCULOSKELETAL: No joint swelling or deformity. EXTREMITIES: No cyanosis, clubbing, or pedal edema. NEUROLOGICAL: Gross neurological examination did not reveal any focal deficits. SKIN: No rashes. Dictation was produced using [employer] dictation software. please excuse any grammatical, word or spelling errors. Patient Condition at Discharge: Stable Plan - Discharge Summary Discharge Rx Participant: Yes New Discharge Prescriptions: New Potassium Chloride ER [K-Dur 10] 10 meq PO DAILY 30 Days #30 tab Furosemide [Lasix] 40 mg PO DAILY 30 Days #30 tab Continue Montelukast [Singulair] 10 mg PO DAILY Levothyroxine Sodium [Synthroid] 150 mcg PO DAILY Divalproex ER [Depakote ER] 250 mg PO HS Thiamine [Vitamin B-1] 100 mg PO DAILY Metoprolol Tartrate [Lopressor] 25 mg PO BID Ipratropium-Albuterol Nebulize [Duoneb 0.5 mg-3 mg/3 ml Soln] 3 ml INHALATION RT-QID PRN PRN Reason: Shortness Of Breath lisinopriL [Zestril] 20 mg PO DAILY OLANZapine 15 mg PO HS clonazePAM [Klonopin ODT] 0.25 mg PO DAILY HYDROcodone/APAP 5-325MG [[place] 5-325] 1 tab PO BID Budesonide/Formoterol Fumarate [Symbicort 160-4.5 Mcg Inhaler] 2 puff INHALATION RT-BID Famotidine [Pepcid] 20 mg PO BID Tamsulosin [Flomax] 0.4 mg PO DAILY Ferrous Sulfate [Iron (65 MG Elemental)] 325 mg PO DAILY Albuterol Inhaler [Ventolin Hfa Inhaler] 2 puff INHALATION RT-QID PRN #1 each PRN Reason: Shortness Of Breath Melatonin 5 mg PO HS PRN PRN Reason: Insomnia Ibandronate Sodium [Boniva] 150 mg PO Q30D Acetaminophen [Tylenol Arthritis] 650 mg PO Q4HR PRN PRN Reason: Pain lamoTRIgine [LaMICtal] 150 mg PO BID Nitroglycerin Sl Tabs [Nitrostat] 0.4 mg SL Q5M PRN PRN Reason: Chest Pain amLODIPine [Norvasc] 5 mg PO DAILY Venlafaxine HCl [Effexor XR] 150 mg PO DAILY Gabapentin 800 mg PO DIRECTED Discharge Medication List Montelukast [Singulair] 10 mg PO DAILY 12/17/13 [History] Levothyroxine Sodium [Synthroid] 150 mcg PO DAILY 03/29/20 [History] Budesonide/Formoterol Fumarate [Symbicort 160-4.5 Mcg Inhaler] 2 puff INHALATION RT-BID 06/12/21 [History] Famotidine [Pepcid] 20 mg PO BID 09/03/21 [History] Divalproex ER [Depakote ER] 250 mg PO HS 10/07/21 [History] Tamsulosin [Flomax] 0.4 mg PO DAILY 10/26/21 [History] Ferrous Sulfate [Iron (65 MG Elemental)] 325 mg PO DAILY 11/13/22 [History] Ipratropium-Albuterol Nebulize [Duoneb 0.5 mg-3 mg/3 ml Soln] 3 ml INHALATION RT-QID PRN 11/13/22 [History] Metoprolol Tartrate [Lopressor] 25 mg PO BID 11/13/22 [History] Thiamine [Vitamin B-1] 100 mg PO DAILY 11/13/22 [History] Albuterol Inhaler [Ventolin Hfa Inhaler] 2 puff INHALATION RT-QID PRN #1 each 11/17/22 [Rx] Ibandronate Sodium [Boniva] 150 mg PO Q30D 05/03/23 [History] Melatonin 5 mg PO HS PRN 05/03/23 [History] lisinopriL [Zestril] 20 mg PO DAILY 05/03/23 [History] Acetaminophen [Tylenol Arthritis] 650 mg PO Q4HR PRN 10/24/23 [History] OLANZapine 15 mg PO HS 10/24/23 [History] lamoTRIgine [LaMICtal] 150 mg PO BID 10/24/23 [History] Nitroglycerin Sl Tabs [Nitrostat] 0.4 mg SL Q5M PRN 11/01/23 [History] Gabapentin 800 mg PO DIRECTED 12/12/23 [History] HYDROcodone/APAP 5-325MG [[place] 5-325] 1 tab PO BID 12/12/23 [History] Venlafaxine HCl [Effexor XR] 150 mg PO DAILY 12/12/23 [History] amLODIPine [Norvasc] 5 mg PO DAILY 12/12/23 [History] clonazePAM [Klonopin ODT] 0.25 mg PO DAILY 12/12/23 [History] Furosemide [Lasix] 40 mg PO DAILY 30 Days #30 tab 12/15/23 [Rx] Potassium Chloride ER [K-Dur 10] 10 meq PO DAILY 30 Days #30 tab 12/15/23 [Rx] Follow up Appointment(s)/Referral(s): Andrzej Wheeler MD [Primary Care Provider] - 1-2 days Juliocesar Last DO [STAFF PHYSICIAN] - 12/27/23 10:30 am (keep this already scheduled appointment.) Discharge Disposition: HOME SELF-CARE
--- NOTE | 2023-12-15 13:10 | P.PN ---
Subjective HISTORY OF PRESENT ILLNESS: Patient examined this morning at bedside. Patient is currently sitting up in chair. Patient denies chest pain or pressure. She denies shortness of breath. Echocardiogram completed revealing ejection fraction 55 to 60%. She remains on IV diuretics. PHYSICAL EXAM: VITAL SIGNS: Reviewed. GENERAL: Well-developed in no acute distress. NECK: Supple. No JVD or thyromegaly LUNGS: Respirations even and unlabored. Lungs essentially clear to auscultation bilaterally. HEART: Regular rate and rhythm. S1 and S2 heard. EXTREMITIES: Normal range of motion. No clubbing or cyanosis. Peripheral pulses intact. No lower extremity edema ASSESSMENT: Acute on chronic heart failure with preserved EF COPD Hypertension History of PE Chronic hypoxic respiratory failure on home oxygen PLAN: Discontinue IV Lasix. Begin oral Lasix 40 mg daily Continue additional cardiac medications Patient is stable from a cardiac standpoint with no further inpatient recommendations We will sign off. Please reconsult if needed. Nurse practitioner note has been reviewed by physician. Signing provider agrees with the documented findings, assessment, and plan of care documented by [employer] as a scribe. Objective - Vital Signs Vital signs: Vital Signs Temp 98.5 F 12/15/23 08:00 Pulse 81 12/15/23 12:00 Resp 16 12/15/23 08:00 BP 104/54 12/15/23 12:00 Pulse Ox 93 L 12/15/23 12:00 FiO2 Intake & Output 12/14/23 12/15/23 12/15/23 18:59 06:59 18:59 Intake Total 222 540 100 Output Total 1800 550 Balance -1578 -10 100 Weight 73 kg 70.5 kg Intake: Oral 222 540 100 Output: Urine 1800 550 Other: Voiding Method Diaper Diaper Diaper External Catheter External Catheter External Catheter # Voids 1 - Labs CBC & Chem 7: 12/15/23 08:26 12/15/23 08:26 Labs: Abnormal Lab Results - Last 24 Hours (Table) 12/14/23 12/15/23 12/15/23 Range/Units 16:38 08:26 08:26 MCV 102.7 H (80.0-100.0) fL Neutrophils # (Manual) 8.38 H (1.3-7.7) k/uL Lymphocytes # (Manual) 0.81 L (1.0-4.8) k/uL Sodium 130 L (137-145) mmol/L Chloride 91 L (98-107) mmol/L Carbon Dioxide 40 H (22-30) mmol/L Creatinine 0.46 L (0.52-1.04) mg/dL Glucose 123 H (74-99) mg/dL POC Glucose (mg/dL) 153 H (70-110) mg/dL AST 38 H (14-36) U/L Total Protein 5.4 L (6.3-8.2) g/dL Albumin 3.2 L (3.5-5.0) g/dL 12/15/23 Range/Units 11:22 MCV (80.0-100.0) fL Neutrophils # (Manual) (1.3-7.7) k/uL Lymphocytes # (Manual) (1.0-4.8) k/uL Sodium (137-145) mmol/L Chloride (98-107) mmol/L Carbon Dioxide (22-30) mmol/L Creatinine (0.52-1.04) mg/dL Glucose (74-99) mg/dL POC Glucose (mg/dL) 147 H (70-110) mg/dL AST (14-36) U/L Total Protein (6.3-8.2) g/dL Albumin (3.5-5.0) g/dL
[2023-12-15 13:33] VITALS: BP 104/54; PULSE 81
--- NOTE | 2023-12-15 22:47 | P.PN ---
Subjective patient is seen for follow-up for hyponatremia. No significant complaints today. Serum sodium is 130 today. Patient is maintained on Lasix. Drinking a lot of diet pop. Discussed fluid restriction with patient. Objective - Vital Signs Vital signs: Vital Signs Temp 98.5 F 12/15/23 08:00 Pulse 81 12/15/23 12:00 Resp 16 12/15/23 08:00 BP 104/54 12/15/23 12:00 Pulse Ox 93 L 12/15/23 12:00 FiO2 Intake & Output 12/15/23 12/15/23 12/16/23 06:59 18:59 06:59 Intake Total 540 100 Output Total 550 Balance -10 100 Weight 70.5 kg Intake: Oral 540 100 Output: Urine 550 Other: Voiding Method Diaper Diaper External Catheter External Catheter # Voids 1 - Exam patient is awake, comfortable, no acute distress. Examination of the heart S1 and S2 Examination of the lungs bilateral breath sounds are heard Abdomen is soft nontender Examination lower extremity shows trace edema bilaterally ACTIVITY AIDE exam grossly intact - Labs CBC & Chem 7: 12/15/23 08:26 12/15/23 08:26 Labs: Abnormal Lab Results - Last 24 Hours (Table) 12/15/23 12/15/23 12/15/23 Range/Units 08:26 08:26 11:22 MCV 102.7 H (80.0-100.0) fL Neutrophils # (Manual) 8.38 H (1.3-7.7) k/uL Lymphocytes # (Manual) 0.81 L (1.0-4.8) k/uL Sodium 130 L (137-145) mmol/L Chloride 91 L (98-107) mmol/L Carbon Dioxide 40 H (22-30) mmol/L Creatinine 0.46 L (0.52-1.04) mg/dL Glucose 123 H (74-99) mg/dL POC Glucose (mg/dL) 147 H (70-110) mg/dL AST 38 H (14-36) U/L Total Protein 5.4 L (6.3-8.2) g/dL Albumin 3.2 L (3.5-5.0) g/dL Assessment and Plan Assessment: 1. Hyponatremia. Hypervolemic and component of excess fluid intake. Sodium 125 on admission. currently being diuresed. Sodium improved to 130. Urine sodium 37 and urine osmolality 479. 2. Acute on chronic diastolic CHF. 3. Edema. 4. Benign hypertension. 5. Tobacco abuse. Plan: Patient can be discharged from nephrology standpoint. Continue with oral Lasix Discussed fluid restriction
== END 2023-12-15 15:29 | disposition home or self-care (01) | DRG 291 ==
LOC: EC 11:51 → 3SCARD 14:49
PROVIDERS: ADMIT Internal Medicine; ATTEND Internal Medicine
DX: I11.0 Hypertensive heart disease with heart failure (principal); I50.33 Acute on chronic diastolic (congestive) heart failure; E87.1 Hypo-osmolality and hyponatremia; J96.11 Chronic respiratory failure with hypoxia; J98.11 Atelectasis; L97.828 Non-pressure chronic ulcer of other part of left lower leg with other specified severity; L97.818 Non-pressure chronic ulcer of other part of right lower leg with other specified severity; E87.5 Hyperkalemia; Z88.5 Allergy status to narcotic agent; Z88.0 Allergy status to penicillin; Z88.2 Allergy status to sulfonamides; E03.9 Hypothyroidism, unspecified; Z79.890 Hormone replacement therapy; F17.210 Nicotine dependence, cigarettes, uncomplicated; F31.9 Bipolar disorder, unspecified; F41.0 Panic disorder [episodic paroxysmal anxiety]; J44.9 Chronic obstructive pulmonary disease, unspecified; M79.7 Fibromyalgia; M41.9 Scoliosis, unspecified; M48.02 Spinal stenosis, cervical region; M50.30 Other cervical disc degeneration, unspecified cervical region; Z87.01 Personal history of pneumonia (recurrent); K58.9 Irritable bowel syndrome, unspecified; M19.90 Unspecified osteoarthritis, unspecified site; Z79.51 Long term (current) use of inhaled steroids; Z79.899 Other long term (current) drug therapy; Z82.49 Family history of ischemic heart disease and other diseases of the circulatory system; Z86.711 Personal history of pulmonary embolism; Z87.19 Personal history of other diseases of the digestive system; Z90.710 Acquired absence of both cervix and uterus; Z98.42 Cataract extraction status, left eye; Z98.84 Bariatric surgery status; Z99.81 Dependence on supplemental oxygen
CPT/HCPCS: 36415; 71046; 80048; 80053; 81003; 83605; 83735; 83880; 83930; 83935; 84300; 84443; 85025; 85610; 85730; 93005; 93306; 94640; 94760; 96374; 96375; 99285

== ENCOUNTER 2023-12-23 10:44 | Emergency (ER) | payer MEDICARE ==
[2023-12-23 10:59] VITALS: TEMP 98.5
[2023-12-23] MEDS: SODIUM CHLORIDE 0.9% 500 ML 500 ML IV STA (12:11)
[2023-12-23] MEDS: LORazepam 2 MG/ML INJ IV STA ×2 (12:15→14:41)
--- NOTE | 2023-12-23 12:23 | ED ---
General Adult HPI - General Chief complaint: Neuro Symptoms/Deficit Stated complaint: Pain in back and chest, numbness in feet Time Seen by Provider: 12/23/23 11:14 Source: patient, RN notes reviewed Mode of arrival: wheelchair Limitations: no limitations - History of Present Illness Initial comments: This is a 68-year-old female who presents to the emergency department for concerns of dropfoot and numbness in her chest and back. States that she has a history of spinal stenosis and other problems with her back and ribs. Over the last couple of weeks she has noticed increasing problems with her right lower extremity and states that she started to develop dropfoot. She is concerned about worsening nerve damage. Additionally yesterday she started to develop numbness in her chest and back. This is not painful. Patient states that she is very anxious and believes that that is contributing to her symptoms. Denies any shortness of breath, however she does wear oxygen at home as needed. Has a hx of COPD and CHF. She has minor nausea. - Related Data Home Medications Medication Instructions Recorded Confirmed Montelukast [Singulair] 10 mg PO DAILY 12/17/13 12/23/23 Levothyroxine Sodium [Synthroid] 150 mcg PO DAILY 03/29/20 12/23/23 Budesonide/Formoterol Fumarate 2 puff INHALATION RT-BID 06/12/21 12/23/23 [Symbicort 160-4.5 Mcg Inhaler] Famotidine [Pepcid] 20 mg PO BID 09/03/21 12/23/23 Divalproex ER [Depakote ER] 250 mg PO HS 10/07/21 12/23/23 Tamsulosin [Flomax] 0.4 mg PO DAILY 10/26/21 12/23/23 Ferrous Sulfate [Iron (65 MG 325 mg PO DAILY 11/13/22 12/23/23 Elemental)] Ipratropium-Albuterol Nebulize 3 ml INHALATION RT-QID PRN 11/13/22 12/23/23 [Duoneb 0.5 mg-3 mg/3 ml Soln] Metoprolol Tartrate [Lopressor] 25 mg PO BID 11/13/22 12/23/23 Thiamine [Vitamin B-1] 100 mg PO DAILY 11/13/22 12/23/23 Ibandronate Sodium [Boniva] 150 mg PO Q30D 05/03/23 12/23/23 Melatonin 5 mg PO HS PRN 05/03/23 12/23/23 lisinopriL [Zestril] 20 mg PO DAILY 05/03/23 12/23/23 Acetaminophen [Tylenol Arthritis] 650 mg PO Q4HR PRN 10/24/23 12/23/23 OLANZapine 15 mg PO HS 10/24/23 12/23/23 lamoTRIgine [LaMICtal] 150 mg PO BID 10/24/23 12/23/23 Nitroglycerin Sl Tabs [Nitrostat] 0.4 mg SL Q5M PRN 11/01/23 12/23/23 Gabapentin 800 mg PO DIRECTED 12/12/23 12/23/23 HYDROcodone/APAP 5-325MG [[place] 1 tab PO BID 12/12/23 12/23/23 5-325] Venlafaxine HCl [Effexor XR] 150 mg PO DAILY 12/12/23 12/23/23 amLODIPine [Norvasc] 5 mg PO DAILY 12/12/23 12/23/23 clonazePAM [Klonopin ODT] 0.25 mg PO DAILY 12/12/23 12/23/23 Previous Rx's Medication Instructions Recorded Albuterol Inhaler [Ventolin Hfa 2 puff INHALATION RT-QID PRN #1 11/17/22 Inhaler] each Furosemide [Lasix] 40 mg PO DAILY 30 Days #30 tab 12/15/23 Potassium Chloride ER [K-Dur 10] 10 meq PO DAILY 30 Days #30 tab 12/15/23 Cyclobenzaprine [Flexeril] 10 mg PO TID PRN #30 tab 12/23/23 Meloxicam [Mobic] 15 mg PO DAILY PRN #20 tab 12/23/23 Allergies Allergy/AdvReac Type Severity Reaction Status Date / Time codeine Allergy Unknown Verified 12/23/23 12:38 Childhood Penicillins Allergy Rash/Hives Verified 12/23/23 12:38 Sulfa (Sulfonamide Allergy Rash/Hives Verified 12/23/23 12:38 Antibiotics) Review of Systems ROS Statement: Those systems with pertinent positive or pertinent negative responses have been documented in the HPI. ROS Other: All systems not noted in ROS Statement are negative. Past Medical History Past Medical History: Asthma, Heart Failure, COPD, Diabetes Mellitus, Fibromya lgia, GERD/Reflux, Hypertension, Osteoarthritis (OA), Pneumonia, Pulmonary Embolus (PE), Skin Disorder, Thyroid Disorder Additional Past Medical History / Comment(s): Spinal Stenosis, Cervical disc disease/stenosis, scoliosis, recently having numbness/tingling L side of fac e/neck, recently saw hard rock miner blasting for L hemidiaphragmatic elevation-pt states she was told this was probably genetic, recently bronchitis and past bronchitis, pt states recent med change (water pill) d/t electrolyte problem/kidney function being affected, pt states she has had pulmonary emboli, past bilateral lower extremity cellulitis, edema lower extremities, IBS, hemorrhoids, benign colon polyps, sinus problems, UTIs, bacteremia/sepsis, cardiac murmur, past L ankle and L wrist fractures. History of Any Multi-Drug Resistant Organisms: None Reported Past Surgical History: Section, Cholecystectomy, Hysterectomy, Tonsillectomy Additional Past Surgical History / Comment(s): EGD, colonoscopies, gastric bypass, surgery for deviated septum, left cataract removal (having laser procedure on that eye 11/24/23) Past Anesthesia/Blood Transfusion Reactions: Previous Problems w/ Anesthesia Additional Past Anesthesia/Blood Transfusion Reaction / Comment(s): itching after hysterectomy, some kind of breathing problem after gastric bypass-not sure what happened Past Psychological History: Anxiety, Bipolar, Depression, Panic Disorder Smoking Status: Current every day smoker Past Alcohol Use History: None Reported Past Drug Use History: Marijuana - Past Family History Mother Family Medical History: Congestive Heart Failure (CHF), Hypertension Father Additional Family Medical History / Comment(s): Father at the age of 45 yrs d/t having had rheumatic fever as a child and heart valve disease. General Exam Limitations: no limitations General appearance: alert, anxious Head exam: Present: atraumatic, normocephalic, normal inspection Respiratory exam: Present: normal lung sounds bilaterally. Absent: respiratory distress, wheezes, rales, rhonchi, stridor Cardiovascular Exam: Present: regular rate, normal rhythm, normal heart sounds. Absent: systolic murmur, diastolic murmur, rubs, gallop, clicks GI/Abdominal exam: Present: soft, normal bowel sounds. Absent: distended, tenderness, guarding, rebound, rigid Neurological exam: Present: alert, oriented X3, CN II-XII intact Psychiatric exam: Present: normal affect, normal mood Skin exam: Present: warm, dry, intact, normal color. Absent: rash Course Vital Signs 12/23/23 12/23/23 12/23/23 10:53 12:00 12:10 Temperature 98.5 F Pulse Rate 68 66 64 Respiratory 18 16 Rate Blood Pressure 166/73 142/83 O2 Sat by Pulse 91 L 94 L 88 L Oximetry 12/23/23 12/23/23 12/23/23 13:00 14:00 15:00 Temperature Pulse Rate 67 65 63 Respiratory Rate Blood Pressure 162/83 182/87 163/75 O2 Sat by Pulse 93 L 92 L 89 L Oximetry Medical Decision Making - Medical Decision Making This is a 68 year old female who presents to the emergency department for chest and back numbness and drop foot. Was pt. sent in by a medical professional or institution? @ -No Did you speak to anyone other than the patient for history? @ -No Did you review nursing and triage notes? @ -Yes, and I agree, it is accurate with regards to the patient's symptoms. Were old charts reviewed? @ -CT scan of the lumbar spine from 11/01/2023 demonstrating marked levoconvex scoliosis with advanced degenerative changes. She also has a large central right paracentral disc herniation and multiple disc protrusions. Echocardiogram from 12/13/2023 demonstrates an ejection fraction of 55 to 60%. Differential Diagnosis? @ -Differential Chest Pain: Stable Angina, Unstable Angina, STEMI, NSTEMI Aortic Dissection, Pneumothorax, Musculoskeletal, Esophageal Spasm GERD, Cholecystitis, Pancreatitis, Zoster, this is not meant to be an all-inclusive list. EKG interpreted by me (3pts min.)? @ -EKG interpreted by me demonstrating the following: Sinus rhythm. Ventricular rate 65 bpm, DE interval 195 ms, QRS duration 127 ms, QTc 393 seconds. X-rays interpreted by me (1pt min.)? @ -Chest x-ray obtained, my interpretation identifies no localized consolidations or infiltrates. CT interpreted by me (1pt min.)? @ -Not obtained U/S interpreted by me (1pt. min.)? @ -Not obtained What testing was considered but not performed? (CT, X-rays, U/S, labs)? Why? @ -None What meds were considered but not given? Why? @ -None Did you discuss the management of the patient with other professionals? @ -No Did you reconcile home meds? @ -No Was smoking cessation discussed for >3mins.? @ -No Was critical care preformed (if so, how long)? @ -No Were there social determinants of health that impacted care today? How? (Homelessness, low income, unemployed, alcoholism, drug addiction, transportation, low edu. Level, literacy, decrease access to med. care, assisted, rehab)? @ -No Was there de-escalation of care discussed even if they declined? (Discuss DNR or withdrawal of care, Hospice)? @ -No What co-morbidities impacted this encounter? (DM, HTN, Smoking, COPD, CAD, Cancer, CVA, Hep., AIDS, mental health diagnosis, sleep apnea, morbid obesity)? @ -Fibromyalgia, osteoarthritis, spinal canal stenosis, scoliosis CHF, COPD, asthma, DM Was patient admitted / discharged? @ -Discharged. Lab work demonstrates hyponatremia with a sodium of 129. BNP elevated at 1100. Patient just discharged from the hospital for CHF exacerbation and had cardiology consultation and echocardiogram. Chest x-ray demonstrates cardiomegaly and mild pulmonary vascular congestion. Patient not exhibiting any shortness of breath. She wears oxygen at home as needed. Urinalysis negative for signs of infection. She requested a dose of pain medication for her chronic pain, however her concern today was the numbness in the chest and back related to the scoliosis and multitude of other back problems she is dealing with. She is requesting help with management of her symptoms as well as appropriate referrals for orthopedics and pain management. I did offer admission for chest pain, however she declined given that this was a numbness and not a pain. Prescription for Mobic and Flexeril provided with dosing instructions reviewed. Information for orthopedics and pain management provided as well. Advised follow-up with her primary care provider. Undiagnosed new problem with uncertain prognosis? @ -None Drug Therapy requiring intensive monitoring for toxicity (Heparin, Nitro, Insulin, Cardizem)? @ -None Were any procedures done? @ -None Diagnosis/symptom? @ -Numbness and tingling, back pain Acute, or Chronic, or Acute on Chronic? @ -Acute Uncomplicated (without systemic symptoms) or Complicated (systemic symptoms)? @ -Uncomplicated Side effects of treatment? @ -None Exacerbation, Progression, or Severe Exacerbation] @ -Not applicable Poses a threat to life or bodily function? @ -No Return precautions reviewed in depth, the patient is instructed to return to the emergency department with any new, worsening, or concerning symptoms. Patient verbalized understanding. This case was discussed in detail with the attending ED physician, Dr. Pearce. Presentation, findings, and treatment plan discussed in detail as well. - Lab Data Result diagrams: 12/23/23 12:39 12/23/23 12:39 Lab Results 12/23/23 12/23/23 12/23/23 Range/Units 12:07 12:39 12:39 WBC 9.3 (3.8-10.6) k/uL RBC 4.74 (3.80-5.40) m/uL Hgb 14.9 (11.4-16.0) gm/dL Hct 47.5 H (34.0-46.0) % MCV 100.3 H (80.0-100.0) fL MCH 31.5 (25.0-35.0) pg MCHC 31.4 (31.0-37.0) g/dL RDW 13.8 (11.5-15.5) % Plt Count 386 (150-450) k/uL MPV 6.9 Neutrophils % 60 % Lymphocytes % 27 % Monocytes % 7 % Eosinophils % 2 % Basophils % 1 % Neutrophils # 5.6 (1.3-7.7) k/uL Lymphocytes # 2.5 (1.0-4.8) k/uL Monocytes # 0.7 (0-1.0) k/uL Eosinophils # 0.2 (0-0.7) k/uL Basophils # 0.1 (0-0.2) k/uL Macrocytosis Slight PT 10.6 (10.0-12.5) sec INR 1.0 (<1.2) APTT 26.8 (22.0-30.0) sec Sodium (137-145) mmol/L Potassium (3.5-5.1) mmol/L Chloride (98-107) mmol/L Carbon Dioxide (22-30) mmol/L Anion Gap mmol/L BUN (7-17) mg/dL Creatinine (0.52-1.04) mg/dL Est GFR (CKD-EPI)AfAm (>60 ml/min/1.73 sqM) Est GFR (CKD-EPI)NonAf (>60 ml/min/1.73 sqM) Glucose (74-99) mg/dL Calcium (8.4-10.2) mg/dL Magnesium (1.6-2.3) mg/dL Total Bilirubin (0.2-1.3) mg/dL AST (14-36) U/L ALT (4-34) U/L Alkaline Phosphatase (38-126) U/L Troponin I (0.000-0.034) ng/mL NT-Pro-B Natriuret Pep pg/mL Total Protein (6.3-8.2) g/dL Albumin (3.5-5.0) g/dL Lipase (23-300) U/L Urine Color Colorless Urine Appearance Clear (Clear) Urine pH 7.0 (5.0-8.0) Ur Specific [place] 1.005 (1.001-1.035) Urine Protein Negative (Negative) Urine Glucose (UA) Negative (Negative) Urine Ketones Negative (Negative) Urine Blood Negative (Negative) Urine Nitrite Negative (Negative) Urine Bilirubin Negative (Negative) Urine Urobilinogen <2.0 (<2.0) mg/dL Ur Leukocyte Esterase Negative (Negative) 12/23/23 12/23/23 Range/Units 12:39 12:39 WBC (3.8-10.6) k/uL RBC (3.80-5.40) m/uL Hgb (11.4-16.0) gm/dL Hct (34.0-46.0) % MCV (80.0-100.0) fL MCH (25.0-35.0) pg MCHC (31.0-37.0) g/dL RDW (11.5-15.5) % Plt Count (150-450) k/uL MPV Neutrophils % % Lymphocytes % % Monocytes % % Eosinophils % % Basophils % % Neutrophils # (1.3-7.7) k/uL Lymphocytes # (1.0-4.8) k/uL Monocytes # (0-1.0) k/uL Eosinophils # (0-0.7) k/uL Basophils # (0-0.2) k/uL Macrocytosis PT (10.0-12.5) sec INR (<1.2) APTT (22.0-30.0) sec Sodium 129 L (137-145) mmol/L Potassium 4.5 (3.5-5.1) mmol/L Chloride 94 L (98-107) mmol/L Carbon Dioxide 31 H (22-30) mmol/L Anion Gap 4 mmol/L BUN 22 H (7-17) mg/dL Creatinine 0.62 (0.52-1.04) mg/dL Est GFR (CKD-EPI)AfAm >90 (>60 ml/min/1.73 sqM) Est GFR (CKD-EPI)NonAf >90 (>60 ml/min/1.73 sqM) Glucose 79 (74-99) mg/dL Calcium 9.5 (8.4-10.2) mg/dL Magnesium 2.0 (1.6-2.3) mg/dL Total Bilirubin 0.6 (0.2-1.3) mg/dL AST 36 (14-36) U/L ALT 24 (4-34) U/L Alkaline Phosphatase 70 (38-126) U/L Troponin I <0.012 (0.000-0.034) ng/mL NT-Pro-B Natriuret Pep 1100 pg/mL Total Protein 5.9 L (6.3-8.2) g/dL Albumin 3.8 (3.5-5.0) g/dL Lipase 103 (23-300) U/L Urine Color Urine Appearance (Clear) Urine pH (5.0-8.0) Ur Specific [place] (1.001-1.035) Urine Protein (Negative) Urine Glucose (UA) (Negative) Urine Ketones (Negative) Urine Blood (Negative) Urine Nitrite (Negative) Urine Bilirubin (Negative) Urine Urobilinogen (<2.0) mg/dL Ur Leukocyte Esterase (Negative) - Radiology Data Radiology results: report reviewed, image reviewed Disposition Clinical Impression: Numbness and tingling, Back pain Disposition: HOME SELF-CARE Instructions (If sedation given, give patient instructions): Back Pain (ED) Additional Instructions: Return to the emergency department with any new, worsening, or concerning symptoms. Try taking the Mobic once daily with Tylenol. You can also take the Flexeril up to 3 times daily. You may break the tablet in half if it makes you drowsy or causes other problems. Follow up with your primary care provider in 1-2 days. You can reach out to Dr. Wesley's office and see if they would be willing to have a consultation with you to discuss nonsurgical pain management options. Dr. Alex is the other manpower development specialist in [facility], you can also contact his office for a follow-up appointment. The other providers listed are pain management specialists in the area you can try to become established with as well. Prescriptions: Cyclobenzaprine [Flexeril] 10 mg PO TID PRN #30 tab PRN Reason: Pain Meloxicam [Mobic] 15 mg PO DAILY PRN #20 tab PRN Reason: Pain Is patient prescribed a controlled substance at d/c from ED?: No Referrals: Andrzej Wheeler MD [Primary Care Provider] - 1-2 days Mark Alex DO [Doctor of Osteopathic Medicine] - 1-2 days Cristhian Moeller MD [STAFF PHYSICIAN] - 1-2 days Ilana Blanton PAC [PHYSICIAN AUTOMATIC PILOT MECHANIC] - 1-2 days Rehan Wesley DO [Doctor of Osteopathic Medicine] - 1-2 days Time of Disposition: 14:43
[2023-12-23 12:25] LABS: Appearance,Urine Clear (Clear); Bilirubin,Urine Negative (Negative); Blood,Urine Negative (Negative); Color,Urine Colorless; Glucose,Urine (UA) Negative (Negative); Ketones,Urine Negative (Negative); Leukocyte Esterase,Urine Negative (Negative); Nitrite,Urine Negative (Negative); Protein,Urine Negative (Negative); Specific Gravity,Urine 1.005 (1.001-1.035); Urobilinogen,Urine <2.0 mg/dL (<2.0)
[2023-12-23 12:48] VITALS: RESP 16
[2023-12-23 12:54] LABS: Basophils # (A) 0.1 k/uL (0-0.2); Basophils % (A) 1 %; Eosinophils # (A) 0.2 k/uL (0-0.7); Eosinophils % (A) 2 %; HCT 47.5 % (34.0-46.0); HGB 14.9 gm/dL (11.4-16.0); Lymphocytes # (A) 2.5 k/uL (1.0-4.8); Lymphocytes % (A) 27 %; MCH 31.5 pg (25.0-35.0); MCHC 31.4 g/dL (31.0-37.0); MCV 100.3 fL (80.0-100.0); Macrocytosis Slight; Mean Platelet Volume 6.9; Monocytes # (A) 0.7 k/uL (0-1.0); Monocytes % (A) 7 %; Neutrophils # (A) 5.6 k/uL (1.3-7.7); Neutrophils % (A) 60 %; Platelet Count 386 k/uL (150-450); RBC 4.74 m/uL (3.80-5.40); RDW 13.8 % (11.5-15.5); WBC 9.3 k/uL (3.8-10.6)
--- NOTE | 2023-12-23 13:00 | XR ---
EXAMINATION TYPE: XR chest 2V DATE OF EXAM: 12/23/2023 12:33 PM CLINICAL INDICATION:Female, 68 years old with history of Chest Pain; [facility] COMPARISON: Chest radiographs from 2623 TECHNIQUE: XR chest 2V Frontal and lateral views of the chest. FINDINGS: Lungs/Pleura: There is no evidence of pleural effusion, focal consolidation, or pneumothorax. Pulmonary vascularity: Pulmonary vascular congestion. Heart/mediastinum: Cardiomediastinal silhouette is enlarged and stable. Musculoskeletal: No acute osseous pathology. IMPRESSION: Cardiomegaly and mild pulmonary vascular congestion. Correlate with BNP for congestive heart failure.
[2023-12-23 13:05] LABS: ALT 24 U/L (4-34); AST 36 U/L (14-36); African American GFR (CKD) >90 (>60 ml/min/1.73 sqM); Albumin 3.8 g/dL (3.5-5.0); Alkaline Phosphatase 70 U/L (38-126); Anion Gap 4 mmol/L; Blood Urea Nitrogen 22 mg/dL (7-17); Calcium 9.5 mg/dL (8.4-10.2); Carbon Dioxide 31 mmol/L (22-30); Chloride 94 mmol/L (98-107); Glucose 79 mg/dL (74-99); Lipase 103 U/L (23-300); Non-African American GFR(CKD) >90 (>60 ml/min/1.73 sqM); Potassium 4.5 mmol/L (3.5-5.1); Sodium 129 mmol/L (137-145); Total Bilirubin 0.6 mg/dL (0.2-1.3); Total Protein 5.9 g/dL (6.3-8.2)
[2023-12-23 13:07] LABS: Partial Thromboplastin Time 26.8 sec (22.0-30.0); Prothrombin Time 10.6 sec (10.0-12.5)
[2023-12-23 13:14] LABS: NT-Pro-B-Type Natriuretic Pept 1100 pg/mL
[2023-12-23] MEDS: HYDROmorphone 1 MG/ML 1 ML SYRINGE IVP STA (14:20)
[2023-12-23] MEDS: KETOROLAC 15 MG/ML 1 ML VIAL IVP STA (14:21)
[2023-12-23] MEDS: DEXAMETHASONE SOD PHOSPHATE 10 MG/ML 1 ML VIAL IVP STA (14:22)
[2023-12-23 15:16] VITALS: BP 163/75; PULSE 63
[2023-12-23] MEDS: traMADol 50 MG STARTER PACK 3 TAB BTL PO STA (15:23)
== END 2023-12-23 16:35 | disposition home or self-care (01) ==
LOC: EC 10:44
DX: R20.2 Paresthesia of skin (principal); M54.9 Dorsalgia, unspecified; J44.9 Chronic obstructive pulmonary disease, unspecified; F17.200 Nicotine dependence, unspecified, uncomplicated; Z88.0 Allergy status to penicillin; Z88.2 Allergy status to sulfonamides; Z88.5 Allergy status to narcotic agent; Z79.899 Other long term (current) drug therapy
CPT/HCPCS: 36415; 93005; 83880; 80053; 83690; 83735; 84484; 85025; 85610; 85730; 81003; 71046; 99285; 96374; 96375 ×3; 96376; J2060; J1100; J1170; J1885

== ENCOUNTER → 2024-01-03 | Outpatient (CLI) | payer MEDICARE ==
[2024-01-03 09:26] VITALS: BP 122/63; PULSE 61; RESP 16; TEMP 97.7
--- NOTE | 2024-01-03 14:58 | P.PAINPG ---
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 Pt states she experienced 0 % pain relief s/p procedure. Pt states pain level is provoked at 6 /10 in intensity, intermittent, localized in the lumbar spine, predominantly axial, sharp in character w occasional shooting pain towards the back of the LEs. Pain is provoked by oer activity. Pain is alleviated by PT x 6 wks which ended in Oct 2023, physician guided home exercises/ stretches 5 times weekly since Sep 2023. medications, topical, hot showers, repositioning and rest . Oswestry axial pain score at 25. Interventional procedures include MANDO L5-S1 x1 Medications include [place], Tyl, Ibu, BioFreeze Gel, Cannabis use REVIEW OF ORGAN SYSTEMS: CONSTITUTIONAL: No fevers or chills. No recent weight loss. NEUROLOGICAL: + numbness and tingling along the distal extremities. No seizure disorders or headaches. MUSCULOSKELETAL: + pain PSYCHIATRIC: Denies current depression or suicidal thoughts. Physical Examinations : Constitutional : Cooperative , not in acute distress . Neurologic : Cranial nerve II to XII intact. No focal neurological deficits. Psychiatric : alert & oriented x 3. Matching mood & appropriate affect. Judgment & insight intact. Musculoskeletal : Cervical Spine Motor strength in the deltoid and biceps: Normal right side. Normal Left side Motor strength biceps and the wrist extensors: Normal right side . Normal left side Motor strength in the triceps muscle: Normal right side. Normal left side Deep tendon reflexes: Normal at the biceps. Normal at Brachioradialis. Normal at triceps Vertebral body tenderness to deep palpation over Cervical facet loading test: positive bilaterally Spurling test: positive bilaterally Neck distraction test: positive bilaterally [place] sign: positive bilaterally Lumbar spine Motor strength lower extremities ,thigh and legs 5/5 Right side , 5/5 Left side Deep tendon reflexes : Normal Knee Jerk. Normal Ankle Jerk Vertebral body tenderness over L5 Cuevas Test positive Lumbar facet Loading Test: positive Right / positive Left L4-L5, L5-S1 Range of motion of the lumbar spine Flexion 30 degrees, extension 10 degrees Straight Leg Raise test: Left/ Right positive at <35 degrees Eladio test: positive right / positive left. DDD, spondylosis and facet arthropathy without myelopathy Severe tenderness over the Sacroiliac joint on the Right / Left sides Gaenslen test: positive bilaterally Seated flexion test: positive bilaterally. Sacral spine : Severe tenderness over the Sacroiliac joint: right side / left side Range of motion: Flexion of the lumbar spine <60 degrees Range of motion: Extension of the lumbar spine <20 degrees Gaenslen's Test positive Eladio test: positive right side / left side Thigh Thrust Test Sacral Thrust Test Imaging: MRI noncontrast of the lumbar spine from 06/23/2023 reviewed Assessment/ Plan : Lumbar stenosis, Lumbar DDD Recommendation of MBB L3-L5 #1. May need a series of injections, up until RFA, for optimal pain relief. Risks, benefits of procedure discussed and patient verbalized understanding. Admits to anti- coagulant use or medical history of diabetes. Protocol for discontinuation/ continuation of medications leidy procedure discussed. Minimal anesthesia including Fentanyl and Versed if clinically indicated. All questions answered. I have spent greater than 30 minutes on patient care today. Dr Moeller was available by phone for the evaluation of this patient. The time was used to review the medical records including relevant urine studies and Prescription history (MAPs), review of the available imaging, evaluation and examination of the patient, coordination of care with the medical staff and if applicable referring physicians, as well as creation of the medical record PQRS Narrative: Smoking Status Current every day smoker Hx Alcohol Use (MH) No Home Medications: Ambulatory Orders Montelukast [Singulair] 10 mg PO DAILY 12/17/13 Levothyroxine Sodium [Synthroid] 150 mcg PO DAILY 03/29/20 Budesonide/Formoterol Fumarate [Symbicort 160-4.5 Mcg Inhaler] 2 puff INHALATION RT-BID 06/12/21 Famotidine [Pepcid] 20 mg PO BID 09/03/21 Divalproex ER [Depakote ER] 250 mg PO HS 10/07/21 Tamsulosin [Flomax] 0.4 mg PO DAILY 10/26/21 Ferrous Sulfate [Iron (65 MG Elemental)] 325 mg PO DAILY 11/13/22 Ipratropium-Albuterol Nebulize [Duoneb 0.5 mg-3 mg/3 ml Soln] 3 ml INHALATION RT-QID PRN 11/13/22 Metoprolol Tartrate [Lopressor] 25 mg PO BID 11/13/22 Thiamine [Vitamin B-1] 100 mg PO DAILY 11/13/22 Albuterol Inhaler [Ventolin Hfa Inhaler] 2 puff INHALATION RT-QID PRN #1 each 11/17/22 Ibandronate Sodium [Boniva] 150 mg PO Q30D 05/03/23 Melatonin 5 mg PO HS PRN 05/03/23 lisinopriL [Zestril] 20 mg PO DAILY 05/03/23 Acetaminophen [Tylenol Arthritis] 650 mg PO Q4HR PRN 10/24/23 OLANZapine 15 mg PO HS 10/24/23 lamoTRIgine [LaMICtal] 150 mg PO BID 10/24/23 Nitroglycerin Sl Tabs [Nitrostat] 0.4 mg SL Q5M PRN 11/01/23 Gabapentin 800 mg PO DIRECTED 12/12/23 HYDROcodone/APAP 5-325MG [[place] 5-325] 1 tab PO BID 12/12/23 Venlafaxine HCl [Effexor XR] 150 mg PO DAILY 12/12/23 amLODIPine [Norvasc] 5 mg PO DAILY 12/12/23 clonazePAM [KlonoPIN ODT] 0.25 mg PO DAILY 12/12/23 Furosemide [Lasix] 40 mg PO DAILY 30 Days #30 tab 12/15/23 Potassium Chloride ER [K-Dur 10] 10 meq PO DAILY 30 Days #30 tab 12/15/23 Cyclobenzaprine [Flexeril] 10 mg PO TID PRN #30 tab 12/23/23 Meloxicam [Mobic] 15 mg PO DAILY PRN #20 tab 12/23/23 Naproxen [EC-Naprosyn] 500 mg PO BID 30 Days #60 tab 01/03/24 Controlled Substance Measures - Controlled Substance Measures Is patient prescribed a controlled substance at discharge?: No
== END ==
LOC: PNWHC3 08:42
PROVIDERS: ATTEND Specialist
DX: M48.061 Spinal stenosis, lumbar region without neurogenic claudication (principal); M51.37 Other intervertebral disc degeneration, lumbosacral region; F17.200 Nicotine dependence, unspecified, uncomplicated; Z88.5 Allergy status to narcotic agent; Z88.0 Allergy status to penicillin; Z88.2 Allergy status to sulfonamides
CPT/HCPCS: 99211

== ENCOUNTER 2024-01-18 08:50 | Day surgery (SDC) | payer MEDICARE ==
[2024-01-18] MEDS: IV FLUID CONTINUATION 1,000 ML IV ONE (09:20)
[2024-01-18 09:40] VITALS: TEMP 97.2
[2024-01-18] MEDS: LACTATED RINGERS 1,000 ML IV SCH (09:44)
[2024-01-18] MEDS ORDERED: fentaNYL (PF) 50 MCG/ML 2 ML AMP ONE (10:00)
[2024-01-18] MEDS ORDERED: MIDAZOLAM 2 MG/2 ML VIAL ONE (10:00)
[2024-01-18] MEDS ORDERED: ROPIVACAINE 5MG/ML 20ML VIAL ONE (10:00)
--- NOTE | 2024-01-18 10:20 | P.PCN ---
Date of Procedure: 01/18/24 Procedure(s) Performed: PREOPERATIVE DIAGNOSIS : 1- Lumbar spondylosis with Facet Arthropathy with out myelopathy . 2- Lumber degenerative disc disease POSTOPERATIVE DIAGNOSIS: 1- Lumbar spondylosis with Facet Arthropathy without myelopathy . 2- Lumber degenerative disc disease PROCEDURE: Diagnostic bilateral L3 , L4 , and L5 medial branch block under fluoroscopy guidance(fluoroscopy images available in the radiology Department ) ( To target the facet joint between Bilateral L4-5 , and L5-S1 )#1st ANESTHESIA:moderate sedation with intravenous Versed 2 mg and Fentanyl 50 mcg. (Sedation start 10:00 ,end at 10:17 ) EBL: Minimal COMPLICATION: None PROCEDURE INDICATION: Chronic low back pain secondary to Facet arthropathy unresponsive to conservative treatment. PROCEDURE DESCRIPTION: the patient was seen and identified in the preop holding area , risks and benefits and possible complications of the procedure and alternative were discussed with the patient, and the patient agreed to proceed with the procedure and signed the consent and vital signs monitored during the procedure and fluoroscopy was used to maximize the benefit and accuracy of the needle placement, and sedation was given to decrease patient anxiety, patient was taken to the procedure room and placed in prone position vital signs monitored in the back prepped with chlorhexidine X3 then under strict sterile technique using a right oblique fluoroscopy ,the junction of the transverse process and the superior articulating process of the right L3 , L4 , and L5 vertebra which corresponding to the fluoroscopy image of the eye of the Ronnie dog on the block side for the medial branches and subsequently , after local infiltration of skin and subcu tissuies with Ropivacaine 0.5 % , one mL at each level ,then 22-gauge Quincke-type needles , 3 needle was used , each one of them placed at the junction of the base of the transverse process and the superior articular process at the appropriate level, and the needle was advanced until the periosteum contacted, needle placement confirmed with AP oblique and lateral view and after appropriate needle placement confirmed, and after negative aspiration for heme and CSF and there was no paresthesia 1-1/2 mL of Ropivacaine 0.5% , then half mL injected at each level after negative aspiration the needle subsequently removed and the same procedure repeated for the left side at left side at L3 , L4 and L5 levels. At the end of the procedure and the needles removed and a bandage applied after the skin was cleaned the cleaning solution patient taken to recovery room in stable condition and monitors in the recovery room for 20-30 minutes and discharged home in stable condition after discharge criteria met and patient will follow up with the pain clinic in 2-4 weeks
[2024-01-18] MEDS: IV FLUID CONTINUATION 850 ML IV ONE (10:26)
[2024-01-18 10:35] VITALS: RESP 20
--- NOTE | 2024-01-18 10:40 | FL ---
EXAMINATION TYPE: FL guided pain mgmt statistic DATE OF EXAM: 01/18/2024 HISTORY: Fluoroscopy time Total dose area product (DAP) in uGy*m?, mGy*cm? (or similar): 0.95457 IMPRESSION: 1. Fluoroscopy time.
[2024-01-18 11:09] VITALS: BP 133/68; PULSE 61
== END 2024-01-18 11:11 | disposition home or self-care (01) ==
LOC: ORPAIN 08:50
PROVIDERS: ATTEND Specialist
DX: M47.816 Spondylosis without myelopathy or radiculopathy, lumbar region (principal); G89.29 Other chronic pain; M51.36 Other intervertebral disc degeneration, lumbar region; Z88.2 Allergy status to sulfonamides; Z88.5 Allergy status to narcotic agent; Z88.0 Allergy status to penicillin; Z79.1 Long term (current) use of non-steroidal anti-inflammatories (NSAID)
CPT/HCPCS: 64493; 64494 ×2; 99152; J2250; J3010; J2795

== ENCOUNTER 2024-01-22 12:29 | Inpatient (IN) | payer MEDICARE ==
--- NOTE | 2024-01-22 13:28 | ED ---
General Adult HPI - General Source: patient, RN notes reviewed Mode of arrival: wheelchair Limitations: no limitations <Giuliana Carbajal - Last Filed: 01/22/24 13:24> - General Source: RN notes reviewed, old records reviewed Mode of arrival: wheelchair Limitations: no limitations - History of Present Illness -: days(s) Location: back, abdomen Radiation: non-radiation Severity scale (1-10): 7 Quality: sharp Consistency: constant Improves with: none Worsens with: none Associated Symptoms: denies other symptoms Treatments Prior to Arrival: none <Isrrael Gould - Last Filed: 01/22/24 16:43> - General Chief complaint: Back Pain/Injury Stated complaint: Back Pain Time Seen by Provider: 01/22/24 13:25 - History of Present Illness Initial comments: Quick [id number] female with history of CHF and COPD presenting with chest pain x 3 days. Reports over the past few days she has been feeling a constant burning sensation in her chest that radiates down her left arm. She has had this before and states it was contributed to her anxiety. (Giuliana Carbajal) This is a 68-year-old female to the ER for evaluation of back pain severe back pain with anxiety related to chronic back pain. Patient feels very anxious here in the ER due to significant debility in her recent life but she does not want further evaluation she prefers at this time discharged home after pain control (Isrrael Gould) - Related Data Home Medications Medication Instructions Recorded Confirmed Montelukast [Singulair] 10 mg PO DAILY 12/17/13 01/18/24 Levothyroxine Sodium [Synthroid] 150 mcg PO DAILY 03/29/20 01/18/24 Budesonide/Formoterol Fumarate 2 puff INHALATION RT-BID 06/12/21 01/18/24 [Symbicort 160-4.5 Mcg Inhaler] Famotidine [Pepcid] 20 mg PO BID 09/03/21 01/18/24 Divalproex ER [Depakote ER] 250 mg PO HS 10/07/21 01/18/24 Tamsulosin [Flomax] 0.4 mg PO DAILY 10/26/21 01/18/24 Ferrous Sulfate [Iron (65 MG 325 mg PO DAILY 11/13/22 01/18/24 Elemental)] Ipratropium-Albuterol Nebulize 3 ml INHALATION RT-QID PRN 11/13/22 01/18/24 [Duoneb 0.5 mg-3 mg/3 ml Soln] Metoprolol Tartrate [Lopressor] 25 mg PO BID 11/13/22 01/18/24 Thiamine [Vitamin B-1] 100 mg PO DAILY 11/13/22 01/18/24 Ibandronate Sodium [Boniva] 150 mg PO Q30D 05/03/23 01/18/24 Melatonin 5 mg PO HS PRN 05/03/23 01/18/24 lisinopriL [Zestril] 20 mg PO DAILY 05/03/23 01/18/24 Acetaminophen [Tylenol Arthritis] 650 mg PO Q4HR PRN 10/24/23 01/18/24 lamoTRIgine [LaMICtal] 150 mg PO BID 10/24/23 01/18/24 Gabapentin 800 mg PO DIRECTED 12/12/23 01/18/24 Venlafaxine HCl [Effexor XR] 150 mg PO DAILY 12/12/23 01/18/24 amLODIPine [Norvasc] 5 mg PO DAILY 12/12/23 01/18/24 clonazePAM [KlonoPIN ODT] 0.25 mg PO DAILY 12/12/23 01/18/24 Previous Rx's Medication Instructions Recorded Albuterol Inhaler [Ventolin Hfa 2 puff INHALATION RT-QID PRN #1 11/17/22 Inhaler] each Cyclobenzaprine [Flexeril] 10 mg PO TID PRN #30 tab 12/23/23 Naproxen [EC-Naprosyn] 500 mg PO BID 30 Days #60 tab 01/03/24 Allergies Allergy/AdvReac Type Severity Reaction Status Date / Time codeine Allergy Unknown Verified 01/18/24 09:18 Childhood Penicillins Allergy Rash/Hives Verified 01/18/24 09:18 Sulfa (Sulfonamide Allergy Rash/Hives Verified 01/18/24 09:18 Antibiotics) Review of Systems ROS Other: All systems not noted in ROS Statement are negative. <Giuliana Carbajal - Last Filed: 01/22/24 13:24> ROS Other: All systems not noted in ROS Statement are negative. <Isrrael Gould - Last Filed: 01/22/24 16:43> ROS Statement: Those systems with pertinent positive or pertinent negative responses have been documented in the HPI. Past Medical History Past Medical History: Asthma, Heart Failure, COPD, Fibromyalgia, GERD/Reflux, Hypertension, Osteoarthritis (OA), Pneumonia, Pulmonary Embolus (PE), Skin Disorder, Thyroid Disorder Additional Past Medical History / Comment(s): Spinal Stenosis, Cervical disc disease/stenosis, scoliosis, recently having numbness/tingling L side of face/neck, recently saw programmer engineering and scientific for L hemidiaphragmatic elevation-pt states she was told this was probably genetic, recently bronchitis and past bronchitis, pt states recent med change (water pill) d/t electrolyte problem/kidney function being affected, pt states she has had pulmonary emboli, past bilateral lower extremity cellulitis, edema lower extremities, IBS, hemorrhoids, benign colon polyps, sinus problems, UTIs, bacteremia/sepsis, cardiac murmur, past L ankle and L wrist fractures. History of Any Multi-Drug Resistant Organisms: None Reported Past Surgical History: Bariatric Surgery, Section, Cholecystectomy, Hysterectomy, Tonsillectomy Additional Past Surgical History / Comment(s): EGD, colonoscopies, gastric bypass, surgery for deviated septum, left cataract removal (having laser procedure on that eye 11/24/23) Past Anesthesia/Blood Transfusion Reactions: Previous Problems w/ Anesthesia Additional Past Anesthesia/Blood Transfusion Reaction / Comment(s): itching after hysterectomy, some kind of breathing problem after gastric bypass-not sure what happened Past Psychological History: Anxiety, Bipolar, Depression, Panic Disorder Smoking Status: Current every day smoker - Past Family History Mother Family Medical History: Congestive Heart Failure (CHF), Hypertension Father History Unknown: Yes Additional Family Medical History / Comment(s): Father at the age of 45 yrs d/t having had rheumatic fever as a child and heart valve disease. <Giuliana Carbajal - Last Filed: 01/22/24 13:24> General Exam Limitations: no limitations <Giuliana Carbajal - Last Filed: 01/22/24 13:24> General appearance: alert, anxious, in distress, obese Head exam: Present: atraumatic, normocephalic, normal inspection Eye exam: Present: normal appearance, PERRL, EOMI. Absent: scleral icterus, conjunctival injection, periorbital swelling ENT exam: Present: normal exam, mucous membranes moist Neck exam: Present: normal inspection. Absent: tenderness, meningismus, lymphadenopathy Respiratory exam: Present: respiratory distress, wheezes, decreased breath sounds, prolonged expiratory. Absent: rales, rhonchi, stridor Cardiovascular Exam: Present: regular rate, normal rhythm, normal heart sounds. Absent: systolic murmur, diastolic murmur, rubs, gallop, clicks GI/Abdominal exam: Present: soft, normal bowel sounds. Absent: distended, tenderness, guarding, rebound, rigid Extremities exam: Present: normal inspection, full ROM, normal capillary refill. Absent: tenderness, pedal edema, joint swelling, calf tenderness Back exam: Present: normal inspection Neurological exam: Present: alert, oriented X3, CN II-XII intact Psychiatric exam: Present: normal affect, normal mood Skin exam: Present: warm, dry, intact, normal color. Absent: rash <Isrrael Gould - Last Filed: 01/22/24 16:43> - General Exam Comments Initial Comments: Visual Physical Exam Vital signs reviewed General: Well-appearing, nontoxic, no acute distress. Head: Normocephalic, atraumatic Eyes: PERRLA, EOMI ENT: Airway patent Chest: Nonlabored breathing Skin: No visual rash, normal skin tone Neuro: Alert and oriented 3 Musculoskeletal: No gross abnormalities (Giuliana Carbajal) Course <Isrrael Gould - Last Filed: 01/22/24 16:43> Vital Signs 01/22/24 01/22/24 12:40 16:30 Temperature 98.6 F Pulse Rate 69 64 Respiratory 18 17 Rate Blood Pressure 121/70 168/81 O2 Sat by Pulse 90 L 90 L Oximetry - Reevaluation(s) Reevaluation #1: 01/22/24 16:42 Records reviewed (Isrrael Gould) Reevaluation #2: 01/22/24 16:42 Symptoms unchanged still hypoxic (Isrrael Gould) Reevaluation #3: 01/22/24 16:42 Informed of results questions answered (Isrrael Gould) Reevaluation #4: Was pt. sent in by a medical professional or institution (, PA, ZONING TECHNICIAN, urgent care, hospital, or care home...) When possible be specific @ -no Did you speak to anyone other than the patient for history (EMS, parent, family, police, friend...)? What history was obtained from this source @ -no Did you review nursing and triage notes (agree or disagree)? Why? @ -agree Are old charts reviewed (outside hosp., previous admission, EMS record, old EKG, old radiological studies, urgent care reports/EKG's, care home records)? Report findings @ -yes Differential Diagnosis (chest pain, altered mental status, abdominal pain women, abdominal pain men, vaginal bleeding, weakness, fever, dyspnea, syncope, headache, dizziness, GI bleed, back pain, seizure, CVA, palpatations, mental health, musculoskeletal)? @ -prior EKG interpreted by me (3pts min.). @ -yes X-rays interpreted by me (1pt min.). @ -yes negative for acute disease CT interpreted by me (1pt min.). @ -no U/S interpreted by me (1pt. min.). @ -no What testing was considered but not performed or refused? (CT, X-rays, U/S, labs)? Why? @ -none What meds were considered but not given or refused? Why? @ -none Did you discuss the management of the patient with other professionals (professionals i.e. , PA, ZONING TECHNICIAN, lab, RT, psych nurse, high school social science teacher, floatman, teacher, chief innovation officer, business case analyst)? Give summary @ -no Was smoking cessation discussed for >3mins.? @ -no Was critical care preformed (if so, how long)? @ -no Were there social determinants of health that impacted care today? How? (Homelessness, low income, unemployed, alcoholism, drug addiction, transportation, low edu. Level, literacy, decrease access to med. care, fdc, rehab)? @ -none Was there de-escalation of care discussed even if they declined (Discuss DNR or withdrawal of care, Hospice)? DNR status @ -no What co-morbidities impacted this encounter? (DM, HTN, Smoking, COPD, CAD, Cancer, CVA, ARF, Chemo, Hep., AIDS, mental health diagnosis, sleep apnea, morbid obesity)? @ -none Was patient admitted / discharged? Hospital course, mention meds given and route, prescriptions, significant lab abnormalities, going to OR and other pert inent info. @ - Undiagnosed new problem with uncertain prognosis? @ -no Drug Therapy requiring intensive monitoring for toxicity (Heparin, Nitro, Insulin, Cardizem)? @ -no Were any procedures done? @ -no Diagnosis/symptom? @ - Acute, or Chronic, or Acute on Chronic? @ -Acute Uncomplicated (without systemic symptoms) or Complicated (systemic symptoms)? @ -Complicated Side effects of treatment? @ -no Exacerbation, Progression, or Severe Exacerbation? @ -exacerbation Poses a threat to life or bodily function? How? (Chest pain, USA, IA, pneumonia, PE, COPD, DKA, ARF, appy, cholecystitis, CVA, Diverticulitis, Homicidal, Suicidal, threat to staff... and all critical care pts) @ -yes (Isrrael Gould) Reevaluation #5: Differential Dyspnea: Coronary syndrome, arrhythmia, tamponade, asthma, COPD, pulmonary embolism, pneumonia, pneumothorax, pulmonary effusion, anaphylaxis, diabetic ketoacidosis, flailed chest, pulmonary contusion, diaphragmatic rupture, anemia, neuromuscular, this is not meant to be an all-inclusive list. Differential Back Pain: Strain, zoster, cauda equina syndrome, epidural abscess, vertebral osteomyelitis, discitis, fracture, subluxation, disc herniation, DJD, spinal stenosis, dissection, AAA, pancreatitis, peptic ulcer disease, pyelonephritis, kidney stone, this is not meant to be an all-inclusive list. (Isrrael Gould) - Consultations Consultation #1: Spoke with [facility] who agrees to admit this patient (Isrrael Gould) Medical Decision Making <Giuliana Carbajal - Last Filed: 01/22/24 13:24> - Lab Data Result diagrams: 01/22/24 13:31 01/22/24 13:31 - EKG Data -: EKG Interpreted by Al - Radiology Data Radiology results: report reviewed (Chest x-ray is positive for CHF), image reviewed <Isrrael Gould - Last Filed: 01/22/24 16:43> - Medical Decision Making I completed the quick note portion of this chart signed Giuliana Carbajal PA-C (Giuliana Carbajal) 68 female will be admitted for severe hypertensive urgency emergency CHF and COPD exacerbation with hypoxia (Isrrael Gould) - Lab Data Lab Results 01/22/24 01/22/24 01/22/24 Range/Units 13:31 13:31 13:31 WBC 13.1 H (3.8-10.6) k/uL RBC 4.71 (3.80-5.40) m/uL Hgb 14.6 (11.4-16.0) gm/dL Hct 48.1 H (34.0-46.0) % MCV 102.0 H (80.0-100.0) fL MCH 31.0 (25.0-35.0) pg MCHC 30.4 L (31.0-37.0) g/dL RDW 13.3 (11.5-15.5) % Plt Count 254 (150-450) k/uL MPV 7.5 Neutrophils % 71 % Lymphocytes % 15 % Monocytes % 9 % Eosinophils % 2 % Basophils % 1 % Neutrophils # 9.4 H (1.3-7.7) k/uL Lymphocytes # 1.9 (1.0-4.8) k/uL Monocytes # 1.2 H (0-1.0) k/uL Eosinophils # 0.2 (0-0.7) k/uL Basophils # 0.1 (0-0.2) k/uL Macrocytosis Slight PT 10.3 (10.0-12.5) sec INR 0.9 (<1.2) APTT 26.1 (22.0-30.0) sec Sodium 129 L (137-145) mmol/L Potassium 5.4 H (3.5-5.1) mmol/L Chloride 97 L (98-107) mmol/L Carbon Dioxide 28 (22-30) mmol/L Anion Gap 4 mmol/L BUN 28 H (7-17) mg/dL Creatinine 0.69 (0.52-1.04) mg/dL Est GFR (CKD-EPI)AfAm >90 (>60 ml/min/1.73 sqM) Est GFR (CKD-EPI)NonAf >90 (>60 ml/min/1.73 sqM) Glucose 105 H (74-99) mg/dL Calcium 9.6 (8.4-10.2) mg/dL Magnesium 1.7 (1.6-2.3) mg/dL Total Bilirubin 0.8 (0.2-1.3) mg/dL AST 48 H (14-36) U/L ALT 26 (4-34) U/L Alkaline Phosphatase 58 (38-126) U/L Troponin I (0.000-0.034) ng/mL Total Protein 6.3 (6.3-8.2) g/dL Albumin 3.9 (3.5-5.0) g/dL 01/22/24 Range/Units 13:31 WBC (3.8-10.6) k/uL RBC (3.80-5.40) m/uL Hgb (11.4-16.0) gm/dL Hct (34.0-46.0) % MCV (80.0-100.0) fL MCH (25.0-35.0) pg MCHC (31.0-37.0) g/dL RDW (11.5-15.5) % Plt Count (150-450) k/uL MPV Neutrophils % % Lymphocytes % % Monocytes % % Eosinophils % % Basophils % % Neutrophils # (1.3-7.7) k/uL Lymphocytes # (1.0-4.8) k/uL Monocytes # (0-1.0) k/uL Eosinophils # (0-0.7) k/uL Basophils # (0-0.2) k/uL Macrocytosis PT (10.0-12.5) sec INR (<1.2) APTT (22.0-30.0) sec Sodium (137-145) mmol/L Potassium (3.5-5.1) mmol/L Chloride (98-107) mmol/L Carbon Dioxide (22-30) mmol/L Anion Gap mmol/L BUN (7-17) mg/dL Creatinine (0.52-1.04) mg/dL Est GFR (CKD-EPI)AfAm (>60 ml/min/1.73 sqM) Est GFR (CKD-EPI)NonAf (>60 ml/min/1.73 sqM) Glucose (74-99) mg/dL Calcium (8.4-10.2) mg/dL Magnesium (1.6-2.3) mg/dL Total Bilirubin (0.2-1.3) mg/dL AST (14-36) U/L ALT (4-34) U/L Alkaline Phosphatase (38-126) U/L Troponin I <0.012 (0.000-0.034) ng/mL Total Protein (6.3-8.2) g/dL Albumin (3.5-5.0) g/dL Critical Care Time Critical Care Time: Yes Total Critical Care Time: 31 <Isrrael Gould - Last Filed: 01/22/24 16:43> Disposition <Giuliana Carbajal - Last Filed: 01/22/24 13:24> <Isrrael Gould - Last Filed: 01/22/24 16:43> Clinical Impression: COPD (chronic obstructive pulmonary disease), Altered mental status, Weakness, Respiratory failure, Hypoxia, CHF exacerbation, Mechanical back pain, Thoracic back pain Disposition: [facility] Condition: Serious Referrals: Andrzej Wheeler MD [Primary Care Provider] - 1-2 days
[2024-01-22 14:04] LABS: Basophils # (A) 0.1 k/uL (0-0.2); Basophils % (A) 1 %; Eosinophils # (A) 0.2 k/uL (0-0.7); Eosinophils % (A) 2 %; HCT 48.1 % (34.0-46.0); HGB 14.6 gm/dL (11.4-16.0); Lymphocytes # (A) 1.9 k/uL (1.0-4.8); Lymphocytes % (A) 15 %; MCHC 30.4 g/dL (31.0-37.0); Macrocytosis Slight; Mean Platelet Volume 7.5; Monocytes # (A) 1.2 k/uL (0-1.0); Monocytes % (A) 9 %; Neutrophils # (A) 9.4 k/uL (1.3-7.7); Neutrophils % (A) 71 %; Platelet Count 254 k/uL (150-450); RBC 4.71 m/uL (3.80-5.40); RDW 13.3 % (11.5-15.5); WBC 13.1 k/uL (3.8-10.6)
[2024-01-22 14:17] LABS: INR 0.9 (<1.2); Partial Thromboplastin Time 26.1 sec (22.0-30.0); Prothrombin Time 10.3 sec (10.0-12.5)
[2024-01-22 14:29] LABS: ALT 26 U/L (4-34); African American GFR (CKD) >90 (>60 ml/min/1.73 sqM); Albumin 3.9 g/dL (3.5-5.0); Anion Gap 4 mmol/L; Blood Urea Nitrogen 28 mg/dL (7-17); Calcium 9.6 mg/dL (8.4-10.2); Carbon Dioxide 28 mmol/L (22-30); Chloride 97 mmol/L (98-107); Glucose 105 mg/dL (74-99); Non-African American GFR(CKD) >90 (>60 ml/min/1.73 sqM); Sodium 129 mmol/L (137-145); Total Bilirubin 0.8 mg/dL (0.2-1.3); Total Protein 6.3 g/dL (6.3-8.2)
[2024-01-22 14:41] LABS: Magnesium 1.7 mg/dL (1.6-2.3); Potassium 5.4 mmol/L (3.5-5.1)
[2024-01-22 14:42] LABS: AST 48 U/L (14-36); Alkaline Phosphatase 58 U/L (38-126)
--- NOTE | 2024-01-22 14:55 | XR ---
EXAMINATION TYPE: XR chest 2V DATE OF EXAM: 01/22/2024 2:31 PM CLINICAL INDICATION:Female, 68 years old with history of chest pain; H COMPARISON: Chest radiographs from 12/23/2023 TECHNIQUE: XR chest 2V Frontal view of the chest. FINDINGS: Lungs/Pleura: Low lung volumes are present. There is no evidence of pleural effusion, focal consolida tion, or pneumothorax. Pulmonary vascularity: Unremarkable. Heart/mediastinum: Cardiac size is normal. Musculoskeletal: No acute osseous pathology. IMPRESSION: Low lung volumes with a generalized hazy appearance which could represent atelectasis versus pulmonar y edema correlate with serum BNP.
[2024-01-22] MEDS: LORazepam 2 MG/ML INJ IV STA (16:18)
[2024-01-22] MEDS: methylPREDNISolone SOD SUCCI 125 MG/2 ML VIAL IV STA (17:00)
[2024-01-22] MEDS: FUROSEMIDE 10 MG/ML 4 ML VIAL IV SCH (17:07)
[2024-01-22] MEDS: IPRATROPIUM-ALBUTEROL 3 ML NEB INHALATION STA (17:08)
[2024-01-22] MEDS: HYDROmorphone 1 MG/ML 1 ML SYRINGE IVP STA (17:14)
[2024-01-22] MEDS ORDERED: ALBUTEROL HFA INHALER INHALATION PRN (20:02)
[2024-01-22] MEDS ORDERED: IPRATROPIUM-ALBUTEROL 3 ML NEB INHALATION PRN (20:02)
[2024-01-22] MEDS: methylPREDNISolone SOD SUCCI 125 MG/2 ML VIAL IV SCH (20:06)
[2024-01-22] MEDS: clonazePAM 0.5 MG TAB PO SCH (21:42)
[2024-01-22] MEDS: FAMOTIDINE 20 MG TAB PO SCH (21:43)
[2024-01-22] MEDS: ACETAMINOPHEN TAB 325 MG TAB PO PRN (21:43)
[2024-01-22] MEDS: DIVALPROEX ER 250 MG TAB.ER.24H PO SCH (21:44)
[2024-01-22] MEDS: lamoTRIgine 100 MG TAB PO SCH (21:44)
[2024-01-22] MEDS: MELATONIN 5 MG TABLET PO PRN (21:44)
[2024-01-22] MEDS: METOPROLOL TARTRATE 25 MG TAB PO SCH (21:44)
[2024-01-22] MEDS: OLANZapine 5 MG TAB PO SCH (21:45)
[2024-01-22] MEDS: CITALOPRAM HYDROBROMIDE 20 MG TAB PO SCH (21:51)
[2024-01-23] MEDS: SYMBICORT 160-4.5 MCG INHALER INHALATION SCH (08:20)
[2024-01-23] MEDS: LEVOTHYROXINE 75 MCG TAB PO SCH (08:33)
[2024-01-23] MEDS: amLODIPine 5 MG TAB PO SCH (08:33)
[2024-01-23] MEDS: FERROUS SULFATE 325 MG TAB PO SCH (08:33)
[2024-01-23] MEDS: MONTELUKAST 10 MG TAB PO SCH (08:34)
[2024-01-23] MEDS: TAMSULOSIN 0.4 MG CAP.ER.24H PO SCH (08:34)
[2024-01-23 08:35] VITALS: RESP 18
[2024-01-23] MEDS: THIAMINE 100 MG TAB PO SCH (11:16)
[2024-01-23] MEDS: ENOXAPARIN 40 MG/0.4 ML SYRINGE SQ SCH (11:20)
[2024-01-23] MEDS: NICOTINE 14MG/24HR PATCH TRANSDERM SCH (12:22)
[2024-01-23] MEDS: predniSONE 20 MG TAB PO SCH (12:22)
[2024-01-23] MEDS: HYDROcodone/APAP 5-325MG 1 EACH TAB PO PRN (12:22)
[2024-01-23] MEDS: LORazepam 0.5 MG TAB PO PRN (12:22)
[2024-01-23] MEDS: lisinopriL 20 MG TAB PO SCH ×2 (13:21→15:47)
[2024-01-23] MEDS: FUROSEMIDE 20 MG TAB PO SCH (13:21)
[2024-01-23] MEDS: LIDOCAINE 4% PATCH TOPICAL SCH (13:21)
--- NOTE | 2024-01-23 13:51 | P.HPIM ---
History of Present Illness H&P Date: 01/23/24 History of present illness; 68-year-old female with past medical history significant for fibromyalgia, diastolic CHF, history of chronic back pain, history of spinal stenosis COPD, history of PE who presented to hospital with multiple complaints of shortness of breath, productive cough, constant chest pain- bilateral, bilateral upper arm pain and numbness, bilateral lower extremity pain and numbness, worsening chronic back pain and worsening anxiety. Patient reported that she uses 3-1/2 L oxygen at baseline as needed and nightly. Patient denied any fever chills or night sweats, complains of generalized weakness and fatigue, denied any sore throat. Patient complained of palpitations. Patient denied any nausea vomiting diarrhea constipation abdominal pain. Patient complained of frequent urination and also complained of incontinence. Patient is afebrile, pulse rate 70, respiratory rate 16, blood pressure 123/63. Patient was on room air initially, patient currently on 4 L oxygen. Lab work showed WBC 13.1, hemoglobin 14.6, platelet 13.3 . CMP was significant for sodium 129, potassium 5.4, mildly elevated AST 48 otherwise unremarkable. Troponin negative. EKG showed sinus bradycardia with heart rate 59, left axis deviation, no acute ST or T wave changes. Chest x-ray showed low lung volumes with a generalized hazy appearance which could represent atelectasis versus pulmonary edema. Patient admitted to internal medicine service REVIEW OF SYSTEMS: CONSTITUTIONAL: No fever, no malaise, no fatigue. HEENT: No recent visual problems or hearing problems. Denied any sore throat. CARDIOVASCULAR: No chest pain, orthopnea, PND, no palpitations, no syncope. PULMONARY: No shortness of breath, no cough, no hemoptysis. GASTROINTESTINAL: No diarrhea, no nausea, no vomiting, no abdominal pain. NEUROLOGICAL: No headaches, no weakness, no numbness. HEMATOLOGICAL: Denies any bleeding or petechiae. GENITOURINARY: Denies any burning micturition, frequency, or urgency. MUSCULOSKELETAL/RHEUMATOLOGICAL: Denies any joint pain, swelling, or any muscle pain. ENDOCRINE: Denies any polyuria or polydipsia. The rest of the 14-point review of systems is negative. PHYSICAL EXAMINATION: GENERAL: The patient is alert and oriented x3, not in any acute distress. Well developed, well nourished. HEENT: Pupils are round and equally reacting to light. EOMI. No scleral icterus. No conjunctival pallor. Normocephalic, atraumatic. No pharyngeal erythema. No thyromegaly. CARDIOVASCULAR: S1 and S2 present. No murmurs, rubs, or gallops. PULMONARY: Decreased breath sound bilaterally, bilateral crackles, bilateral expiratory wheezes. ABDOMEN: Soft, nontender, nondistended, normoactive bowel sounds. No palpable organomegaly. MUSCULOSKELETAL: No joint swelling or deformity. EXTREMITIES: No cyanosis, clubbing, or pedal edema. NEUROLOGICAL: Gross neurological examination did not reveal any focal deficits. Patient had equal strength in bilateral lower extremities, poor effort right lower extremity. SKIN: No rashes. Assessment and plan Acute on chronic hypoxic respiratory failure: Acute diastolic CHF: Acute COPD exacerbation: Hyperkalemia: Presented with multiple complaints including generalized weakness, generalized bodyaches, weakness numbness, shortness of breath productive cough. Chest x-ray consistent with CHF. Patient was hypoxic required supplemental oxygen. Patient reported 3.5 L oxygen as needed and nightly. Continue inhalers/bronchodilator protocolDuoNeb, Pulmicort. Prednisone. Monitor daily weight and I&O's. Cardiac diet. IV diuresis with Lasix 40 mg every 8 hour Continue home meds--Norvasc, metoprolol Hold lisinopril due to hyperkalemia. Echocardiogram Cardiology consult. Hyponatremia: Secondary to fluid overloaded Continue IV diuresing Monitor sodium. Acute on chronic back pain: History of spinal stenosis: Fibromyalgia: Anxiety: Symptomatic pain control with Tylenol, [place]. As needed Ativan for anxiety Monitor with neurochecks MRI lumbar spine Orthopedic spine consult History of PE: DVT prophylaxis. Subcutaneous Lovenox Dictation was produced using [employer] dictation software. please excuse any grammatical, word or spelling errors. Past Medical History Past Medical History: Asthma, Heart Failure, COPD, Fibromyalgia, GERD/Reflux, Hypertension, Osteoarthritis (OA), Pneumonia, Pulmonary Embolus (PE), Skin Disorder, Thyroid Disorder Additional Past Medical History / Comment(s): Spinal Stenosis, Cervical disc disease/stenosis, scoliosis, recently having numbness/tingling L side of face/neck, recently saw sunglass clip attacher for L hemidiaphragmatic elevation-pt states she was told this was probably genetic, recently bronchitis and past bronchitis, pt states recent med change (water pill) d/t electrolyte problem/kidney function being affected, pt states she has had pulmonary emboli, past bilateral lower extremity cellulitis, edema lower extremities, IBS, hemorrhoids, benign colon polyps, sinus problems, UTIs, bacteremia/sepsis, cardiac murmur, past L ankle and L wrist fractures. History of Any Multi-Drug Resistant Organisms: None Reported Past Surgical History: Bariatric Surgery, Section, Cholecystectomy, Hysterectomy, Tonsillectomy Additional Past Surgical History / Comment(s): EGD, colonoscopies, gastric bypass, surgery for deviated septum, left cataract removal (having laser procedure on that eye 11/24/23) Past Anesthesia/Blood Transfusion Reactions: Previous Problems w/ Anesthesia Additional Past Anesthesia/Blood Transfusion Reaction / Comment(s): itching after hysterectomy, some kind of breathing problem after gastric bypass-not sure what happened Past Psychological History: Anxiety, Bipolar, Depression, Panic Disorder Additional Psychological History / Comment(s): fears re health. Smoking Status: Current every day smoker Past Alcohol Use History: None Reported Additional Past Alcohol Use History / Comment(s): Pt started smoking in 1986 and quit when she went into [facility] 08/2021, started again after discharge from [facility] 05/2022 Past Drug Use History: Marijuana Additional Drug Use History / Comment(s): edibles not to use 24 hours prior to procedured - Past Family History Mother Family Medical History: Congestive Heart Failure (CHF), Hypertension Father History Unknown: Yes Additional Family Medical History / Comment(s): Father at the age of 45 yrs d/t having had rheumatic fever as a child and heart valve disease. Medications and Allergies Home Medications Medication Instructions Recorded Confirmed Type Montelukast [Singulair] 10 mg PO DAILY 12/17/13 01/22/24 History Levothyroxine Sodium [Synthroid] 150 mcg PO DAILY 03/29/20 01/22/24 History Budesonide/Formoterol Fumarate 2 puff INHALATION RT-BID 06/12/21 01/22/24 History [Symbicort 160-4.5 Mcg Inhaler] Famotidine [Pepcid] 20 mg PO BID 09/03/21 01/22/24 History Divalproex ER [Depakote ER] 250 mg PO HS 10/07/21 01/22/24 History Tamsulosin [Flomax] 0.4 mg PO DAILY 10/26/21 01/22/24 History Ferrous Sulfate [Iron (65 MG 325 mg PO DAILY 11/13/22 01/22/24 History Elemental)] Ipratropium-Albuterol Nebulize 3 ml INHALATION RT-QID PRN 11/13/22 01/22/24 History [Duoneb 0.5 mg-3 mg/3 ml Soln] Metoprolol Tartrate [Lopressor] 25 mg PO BID 11/13/22 01/22/24 History Thiamine [Vitamin B-1] 100 mg PO DAILY 11/13/22 01/22/24 History Albuterol Inhaler [Ventolin Hfa 2 puff INHALATION RT-QID PRN #1 11/17/22 01/22/24 Rx Inhaler] each Ibandronate Sodium [Boniva] 150 mg PO Q30D 05/03/23 01/22/24 History Melatonin 5 mg PO HS PRN 05/03/23 01/22/24 History lisinopriL [Zestril] 20 mg PO DAILY 05/03/23 01/22/24 History Acetaminophen [Tylenol Arthritis] 650 mg PO Q4HR PRN 10/24/23 01/22/24 History lamoTRIgine [LaMICtal] 150 mg PO BID 10/24/23 01/22/24 History Venlafaxine HCl [Effexor XR] 150 mg PO DAILY 12/12/23 01/22/24 History amLODIPine [Norvasc] 5 mg PO DAILY 12/12/23 01/22/24 History clonazePAM [KlonoPIN ODT] 0.25 mg PO HS 12/12/23 01/22/24 History Naproxen [EC-Naprosyn] 500 mg PO BID 30 Days #60 tab 01/03/24 01/22/24 Rx Cefdinir [Omnicef] 300 mg PO BID 01/22/24 01/22/24 History Citalopram Hydrobromide [CeleXA] 40 mg PO DAILY 01/22/24 01/22/24 History OLANZapine [ZyPREXA] 15 mg PO HS 01/22/24 01/22/24 History Allergies Allergy/AdvReac Type Severity Reaction Status Date / Time codeine Allergy Unknown Verified 01/22/24 17:38 Childhood Penicillins Allergy Rash/Hives Verified 01/22/24 17:38 Sulfa (Sulfonamide Allergy Rash/Hives Verified 01/22/24 17:38 Antibiotics) Physical Exam Vitals: Vital Signs Temp Pulse Pulse Resp BP BP Pulse Ox 01/23/24 08:30 66 18 01/23/24 08:21 93 L 01/23/24 07:18 97.7 F 66 18 176/88 94 L 01/23/24 02:00 97.5 F L 59 L 16 163/73 93 L 01/22/24 20:00 98.3 F 70 16 123/63 92 L 01/22/24 19:04 67 17 01/22/24 18:03 97.9 F 70 15 150/70 94 L 01/22/24 17:22 98.4 F 67 17 169/74 91 L 01/22/24 17:19 66 01/22/24 17:11 63 01/22/24 16:30 64 17 168/81 90 L FiO2 01/23/24 08:30 01/23/24 08:21 50 01/23/24 07:18 01/23/24 02:00 01/22/24 20:00 01/22/24 19:04 01/22/24 18:03 01/22/24 17:22 01/22/24 17:19 01/22/24 17:11 01/22/24 16:30 Intake and Output 01/22/24 01/23/24 01/23/24 22:59 06:59 14:59 Output Total 400 Balance -400 Output: Urine 400 Other: Voiding Method Toilet Toilet Weight 71.668 kg 68.9 kg Results CBC & Chem 7: 01/22/24 13:31 01/22/24 13:31 Labs: Abnormal Lab Results - Last 24 Hours (Table) 01/22/24 01/22/24 Range/Units 13:31 13:31 WBC 13.1 H (3.8-10.6) k/uL Hct 48.1 H (34.0-46.0) % MCV 102.0 H (80.0-100.0) fL MCHC 30.4 L (31.0-37.0) g/dL Neutrophils # 9.4 H (1.3-7.7) k/uL Monocytes # 1.2 H (0-1.0) k/uL Sodium 129 L (137-145) mmol/L Potassium 5.4 H (3.5-5.1) mmol/L Chloride 97 L (98-107) mmol/L BUN 28 H (7-17) mg/dL Glucose 105 H (74-99) mg/dL AST 48 H (14-36) U/L
--- NOTE | 2024-01-23 14:02 | P.PN ---
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 Last with PMH of COPD, type 2 diabetes, fibromyalgia, hypertension, chronic HFpEF, EF 55%, pulmonary embolism, chronic hypoxia on home oxygen, GERD, hypothyroidism, degenerative disease in cervical and lumbar spine, tobacco dependence This time presented to the hospital because of feeling anxious, cervical pain along with numbness and tingling sensation in bilateral upper extremity Cardiology was consulted to evaluate if patient has CHF exacerbation or not. Last hospitalized 6 weeks ago where she was treated for mild HFpEF exacerbation with IV Lasix. On review of her home medication it seems that she was discharged home on Lasix 40 mg daily. BP 163/73, heart rate 60 bpm, ECG shows sinus rhythm with left axis deviation, Labs shows WBC 13, hemoglobin 14, sodium 129, potassium 5.4, BUN 28, creatinine 0.6, BNP 700, troponin negative. REVIEW OF SYSTEMS 14 point review of system is negative except what is mentioned above in HPI. PHYSICAL EXAMINATION Vital signs reviewed. Head: Normocephalic. Eyes: Sclerae nonicteric. Neck: Brisk carotid upstroke, no jugular venous distention. Lungs: Clear to auscultation. Heart: Regular rate and rhythm, S1-S2, no S3, no murmur or rub. Abdomen: Soft nontender, positive bowel sounds. Extremities: No edema, intact distal pulses. Neuro: Alert, oritented, no focal deficits. Detailed neuro exam was not performed. ASSESSMENT Bilateral upper extremity numbness and pain Cervical radiculopathy with neck pain Hyponatremia Essential hypertension COPD chronic hypoxia on home oxygen Small ulcers in bilateral lower extremity History of PE not on anticoagulation Tobacco use Echo November 2023, EF 55%, mild MR, mild TR Lexiscan nuclear January 2023, fixed inferior perfusion defect likely diaphragmatic attenuation PLAN Clinically patient does not appear volume overloaded. Her primary complaint is cervical radiculopathy pain and numbness tingling in bilateral upper extremity Continue Lasix 40 mg daily Amlodipine 5 mg daily, metoprolol 25 mg twice daily, lisinopril 20 mg daily She is not on any systemic anticoagulation at home for prior history of DVT. Continue VTE prophylaxis in the hospital. Reevaluate the need for systemic anticoagulation after reviewing clinic records No Need to repeat echocardiogram Patient appears to be stable from cardiovascular standpoint. Consider signing off in next 24 hrs Bradford Goode MD, [facility], [facility] Thank you for allowing [facility] to participate in this patient's care. Feel free to reach out in case of any followup questions. Objective - Vital Signs Vital signs: Vital Signs Temp 97.7 F 01/23/24 07:18 Pulse 66 01/23/24 08:30 Resp 18 01/23/24 08:30 BP 176/88 01/23/24 07:18 Pulse Ox 92 L 01/23/24 09:56 FiO2 50 01/23/24 08:21 Intake & Output 01/22/24 01/23/24 01/23/24 18:59 06:59 18:59 Output Total 400 Balance -400 Weight 71.668 kg 68.9 kg Output: Urine 400 Other: Voiding Method Toilet Toilet - Labs CBC & Chem 7: 01/22/24 13:31 01/22/24 13:31 Labs: Abnormal Lab Results - Last 24 Hours (Table) 01/22/24 01/22/24 Range/Units 13:31 13:31 WBC 13.1 H (3.8-10.6) k/uL Hct 48.1 H (34.0-46.0) % MCV 102.0 H (80.0-100.0) fL MCHC 30.4 L (31.0-37.0) g/dL Neutrophils # 9.4 H (1.3-7.7) k/uL Monocytes # 1.2 H (0-1.0) k/uL Sodium 129 L (137-145) mmol/L Potassium 5.4 H (3.5-5.1) mmol/L Chloride 97 L (98-107) mmol/L BUN 28 H (7-17) mg/dL Glucose 105 H (74-99) mg/dL AST 48 H (14-36) U/L
[2024-01-23] MEDS: ALBUTEROL NEBULIZED 2.5 MG/3 ML INHALATION PRN (21:31)
[2024-01-24 08:34] LABS: Basophils # (A) 0.03 X 10*3/uL (0.00-0.10); Basophils % (A) 0.2 %; Eosinophils # (A) 0 X 10*3/uL (0.04-0.35); Eosinophils % (A) 0 %; HCT 46.1 % (37.2-46.3); Lymphocytes # (A) 1.71 X 10*3/uL (0.90-5.00); Lymphocytes % (A) 12.2 %; MCH 31.1 pg (27.0-32.0); MCHC 32.5 g/dL (32.0-37.0); MCV 95.4 FL (80.0-97.0); Mean Platelet Volume 9.9 FL (9.5-12.2); Monocytes # (A) 1.42 X 10*3/uL (0.20-1.00); Monocytes % (A) 10.1 %; NRBC Per 100 WBC 0 X 10*3/uL (0.00-0.01); Neutrophils # (A) 10.77 X 10*3/uL (1.80-7.70); Neutrophils % (A) 76.9 %; Platelet Count 263 X 10*3/uL (140-440); RBC 4.83 X 10*6/uL (4.10-5.20); RDW 13.2 % (11.5-14.5); WBC 14.01 X 10*3/uL (4.50-10.00)
[2024-01-24 08:44] LABS: BUN/Creat Ratio 39.57 Ratio (12.00-20.00); Blood Urea Nitrogen 27.7 mg/dL (9.0-27.0); Calcium 9.5 mg/dL (8.7-10.3); Carbon Dioxide 33.3 mmol/L (21.6-31.8); Chloride 94 mmol/L (96-109); Glucose 146 mg/dL (70-110); Magnesium 1.7 mg/dL (1.5-2.4); Potassium 4.3 mmol/L (3.5-5.5); Sodium 136 mmol/L (135-145)
--- NOTE | 2024-01-24 09:07 | P.CNOR ---
History of Present Illness - [facility] Consult date: 01/24/24 Requesting physician: Tray Verma Consult reason: low back pain, neck pain History of present illness: Patient is a very pleasant 68-year-old female who is known to our service in the outpatient setting who is seen and examined at bedside for further evaluation of her cervical spine and lumbar spine. Patient had presented to the emergency department for multiple medical complaints including shortness of breath, productive cough, constant chest pain, and chronic bilateral upper extremity lower extremity numbness and tingling with chronic cervical pain and lumbar pain. Patient has been seen, examined, treated in the outpatient setting at [facility]. She states she has had injections at her cervical spine over the past month with Dr. Nicole. She recently had injection at her lumbar spine on 01/18/2024. She states she has not had any significant change in her symptoms. Her symptoms have been chronic and ongoing. She admits to chronic cervical pain and lumbar pain. She experiences upper extremity numbness and tingling and lower extremity numbness and tingling bilaterally. Today she states she just has pain all over. She states she does not wish for further treatment or evaluation specifically for her cervical spine or lumbar spine during her admission to the hospital. She would like to be discharged home today if cleared by other medical providers. She was scheduled for lumbar MRI imaging during her admission to the hospital. She would like to decline this MRI imaging and follow-up in the outpatient setting for her spine. She has not had any imaging of her spine during this admission. Patient states she is known to have a significant lumbar scoliosis. She states she does not wish for any surgical intervention in regards to her cervical or lumbar spine. She would consider further injections with pain management. She denies any recent falls or injuries. She is eating and voiding without difficulty. She denies any neurologic change in her upper extremities or lower extremities. Consultation has been placed with cardiology. Patient is known to have heart failure. 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 History of Any Multi-Drug Resistant Organisms: None Reported Past Surgical History: Bariatric Surgery, Section, Cholecystectomy, Hysterectomy, Tonsillectomy Additional Past Surgical History / Comment(s): EGD, colonoscopies, gastric bypass, surgery for deviated septum, left cataract removal (having laser procedure on that eye 11/24/23) Past Anesthesia/Blood Transfusion Reactions: Previous Problems w/ Anesthesia Additional Past Anesthesia/Blood Transfusion Reaction / Comm: itching after hysterectomy, some kind of breathing problem after gastric bypass-not sure what happened Past Psychological History: Anxiety, Bipolar, Depression, Panic Disorder Additional Psychological History / Comment(s): fears re health. Smoking Status: Current every day smoker Past Alcohol Use History: None Reported Additional Past Alcohol Use History / Comment(s): Pt started smoking in 1986 and quit when she went into [facility] 08/2021, started again after discharge from [facility] 05/2022 Past Drug Use History: Marijuana Additional Drug Use History / Comment(s): edibles not to use 24 hours prior to procedured - Past Family History Mother Family Medical History: Congestive Heart Failure (CHF), Hypertension Father History Unknown: Yes Additional Family Medical History / Comment(s): Father at the age of 45 yrs d/t having had rheumatic fever as a child and heart valve disease. Medications and Allergies Home Medications Medication Instructions Recorded Confirmed Type Montelukast [Singulair] 10 mg PO DAILY 12/17/13 01/22/24 History Levothyroxine Sodium [Synthroid] 150 mcg PO DAILY 03/29/20 01/22/24 History Budesonide/Formoterol Fumarate 2 puff INHALATION RT-BID 06/12/21 01/22/24 History [Symbicort 160-4.5 Mcg Inhaler] Famotidine [Pepcid] 20 mg PO BID 09/03/21 01/22/24 History Divalproex ER [Depakote ER] 250 mg PO HS 10/07/21 01/22/24 History Tamsulosin [Flomax] 0.4 mg PO DAILY 10/26/21 01/22/24 History Ferrous Sulfate [Iron (65 MG 325 mg PO DAILY 11/13/22 01/22/24 History Elemental)] Ipratropium-Albuterol Nebulize 3 ml INHALATION RT-QID PRN 11/13/22 01/22/24 History [Duoneb 0.5 mg-3 mg/3 ml Soln] Metoprolol Tartrate [Lopressor] 25 mg PO BID 11/13/22 01/22/24 History Thiamine [Vitamin B-1] 100 mg PO DAILY 11/13/22 01/22/24 History Albuterol Inhaler [Ventolin Hfa 2 puff INHALATION RT-QID PRN #1 11/17/22 01/22/24 Rx Inhaler] each Ibandronate Sodium [Boniva] 150 mg PO Q30D 05/03/23 01/22/24 History Melatonin 5 mg PO HS PRN 05/03/23 01/22/24 History lisinopriL [Zestril] 20 mg PO DAILY 05/03/23 01/22/24 History Acetaminophen [Tylenol Arthritis] 650 mg PO Q4HR PRN 10/24/23 01/22/24 History lamoTRIgine [LaMICtal] 150 mg PO BID 10/24/23 01/22/24 History Venlafaxine HCl [Effexor XR] 150 mg PO DAILY 12/12/23 01/22/24 History amLODIPine [Norvasc] 5 mg PO DAILY 12/12/23 01/22/24 History clonazePAM [KlonoPIN ODT] 0.25 mg PO HS 12/12/23 01/22/24 History Naproxen [EC-Naprosyn] 500 mg PO BID 30 Days #60 tab 01/03/24 01/22/24 Rx Cefdinir [Omnicef] 300 mg PO BID 01/22/24 01/22/24 History Citalopram Hydrobromide [CeleXA] 40 mg PO DAILY 01/22/24 01/22/24 History OLANZapine [ZyPREXA] 15 mg PO HS 01/22/24 01/22/24 History Allergies Allergy/AdvReac Type Severity Reaction Status Date / Time codeine Allergy Unknown Verified 01/22/24 17:38 Childhood Penicillins Allergy Rash/Hives Verified 01/22/24 17:38 Sulfa (Sulfonamide Allergy Rash/Hives Verified 01/22/24 17:38 Antibiotics) Physical Examination Physical exam: Patient is awake, alert, and oriented 3 Vital signs stable Adequate chest excursion with deep inspiration and expiration Examination of the cervical spine reveals skin is intact with no abrasions, lacerations, or bruises; no erythema, purulence or signs of infection Adequate range of motion of the cervical spine with adequate flexion, extension, and bilateral rotation Chauffeur Motorbus strength, thumb strength, interosseous strength, biceps strength, triceps strength, and shoulder strength positive sustained bilaterally Upper extremity strength 5/5 bilaterally Hoffmans sign positive upper extremity bilaterally left greater than right No signs or symptoms of DVT; no calf pain Examination of lumbar spine reveals skin is intact with no abrasions, no lacerations; no erythema, purulence or signs of infection Evidence of a small bruise over the right lumbar spine, status post injection Dorsiflexion, plantarflexion, and extensor hallucis longus positive sustained bilaterally Lower extremity strength 5/5 bilaterally Patellar reflex 3+ bilaterally Patient has good range of motion of her bilateral lower extremities Straight leg test negative bilateral lower extremities Negative Lasegue's test bilaterally No signs or symptoms of DVT; no calf pain No pain with internal and external rotation of the hips bilaterally Neurovascularly intact Results - Labs Labs: Abnormal Lab Results - Last 24 Hours (Table) 01/24/24 01/24/24 Range/Units 03:36 03:36 WBC 14.01 H (4.50-10.00) X 10*3/uL Immature Gran # 0.08 H (0.00-0.04) X 10*3/uL Neutrophils # 10.77 H (1.80-7.70) X 10*3/uL Monocytes # 1.42 H (0.20-1.00) X 10*3/uL Eosinophils # 0 L (0.04-0.35) X 10*3/uL Chloride 94 L (96-109) mmol/L Carbon Dioxide 33.3 H (21.6-31.8) mmol/L BUN 27.7 H (9.0-27.0) mg/dL BUN/Creatinine Ratio 39.57 H (12.00-20.00) Ratio Glucose 146 H (70-110) mg/dL H & H 01/22/24 01/24/24 Range/Units 13:31 03:36 Hgb 14.6 15.0 (11.4-16.0) gm/dL Hct 48.1 H 46.1 (34.0-46.0) % Coagulation 01/22/24 Range/Units 13:31 INR 0.9 (<1.2) Result Diagrams: 01/24/24 03:36 01/24/24 03:36 Assessment and Plan Assessment: Assessment: Chronic cervical pain Chronic lumbar pain Chronic upper extremity lower extremity numbness and tingling Upper extremity positive Dallas sign Lower extremity hyperreflexia 3+ at the patellas Scoliosis Acute on chronic hypoxic respiratory failure Diastolic CHF COPD exacerbation Hyperkalemia Hyponatremia Fibromyalgia Anxiety (1) Chronic cervical pain Current Visit: Yes Status: Acute Code(s): M54.2 - CERVICALGIA; G89.29 - OTHER CHRONIC PAIN SNOMED Code(s): 1950011937006 (2) Chronic lumbar pain Current Visit: Yes Status: Acute Code(s): M54.50 - LOW BACK PAIN, UNSPECIFIED; G89.29 - OTHER CHRONIC PAIN SNOMED Code(s): 242299276 (3) Lumbar scoliosis Current Visit: Yes Status: Acute Code(s): M41.9 - SCOLIOSIS, UNSPECIFIED SNOMED Code(s): 386328768 (4) Numbness of upper extremity Current Visit: Yes Status: Acute Code(s): R20.0 - ANESTHESIA OF SKIN SNOMED Code(s): 874581398 (5) Numbness of lower limb Current Visit: Yes Status: Acute Code(s): R20.0 - ANESTHESIA OF SKIN SNOMED Code(s): 881907507 (6) Delgado's reflex positive Current Visit: Yes Status: Acute Code(s): R29.2 - ABNORMAL REFLEX SNOMED Code(s): 450918245 (7) Hyperreflexia of lower extremity Current Visit: Yes Status: Acute Code(s): R29.2 - ABNORMAL REFLEX SNOMED Code(s): 95092553 (8) Diastolic CHF Current Visit: Yes Status: Acute Code(s): I50.30 - UNSPECIFIED DIASTOLIC (CONGESTIVE) HEART FAILURE SNOMED Code(s): 117333286 (9) Hyperkalemia Current Visit: Yes Status: Acute Code(s): E87.5 - HYPERKALEMIA SNOMED Code(s): 92501955 (10) Fibromyalgia Current Visit: Yes Status: Acute Code(s): M79.7 - FIBROMYALGIA SNOMED Code(s): 882758137 (11) COPD (chronic obstructive pulmonary disease) Current Visit: Yes Status: Chronic Code(s): J44.9 - CHRONIC OBSTRUCTIVE PULMONARY DISEASE, UNSPECIFIED SNOMED Code(s): 41736209 (12) Anxiety Current Visit: No Status: Acute Code(s): F41.9 - ANXIETY DISORDER, UNSPECIFIED SNOMED Code(s): 30111032 (13) Hyponatremia Current Visit: No Status: Acute Code(s): E87.1 - HYPO-OSMOLALITY AND HYPONATREMIA SNOMED Code(s): 83181056 Plan: Plan: 1. Patient has been seen, examined, treated in the outpatient setting at [facility]. She states she has had injections at her cervical spine over the past month with Dr. Nicole. She recently had injection at her lumbar spine on 01/18/2024. She states she has not had any significant change in her symptoms. Her symptoms have been chronic and ongoing. She admits to chronic cervical pain and lumbar pain. She experiences upper extremity numbness and tingling and lower extremity numbness and tingling bilaterally. Today she states she just has pain all over. She states she does not wish for further treatment or evaluation specifically for her cervical spine or lumbar spine during her admission to the hospital. She would like to be discharged home today if cleared by other medical providers. She was scheduled for lumbar MRI imaging during her admission to the hospital. She would like to decline this MRI imaging and follow-up in the outpatient setting for her spine. She has not had any imaging of her spine during this admission. Patient states she is known to have a significant lumbar scoliosis. She states she does not wish for any surgical intervention in regards to her cervical or lumbar spine. She would consider further injections with pain management. She denies any recent falls or injuries. She is eating and voiding without difficulty. She denies any neurologic change in her upper extremities or lower extremities. Currently, patient will be cleared for discharge from orthopedic spine standpoint. She does not wish for further treatment or evaluation in regards to her cervical spine or lumbar spine at this time. Her symptoms have been chronic and ongoing. We would plan to have her follow-up in the outpatient setting for further evaluation. Patient may follow-up with Marcus Esparza PA-C or Dr. Liam Wesley at [facility] in 2-3 weeks following discharge. Time with Patient: Greater than 30 (Including obtaining history, physical examination, reviewing of imaging, and dictation.)
[2024-01-24] MEDS: FUROSEMIDE 40 MG TAB PO SCH (09:30)
--- NOTE | 2024-01-24 11:41 | P.PN ---
Subjective HISTORY OF PRESENTING ILLNESS 68-year-old female Dr. Last with PMH of COPD, type 2 diabetes, fibromyalgia, hypertension, chronic HFpEF, EF 55%, pulmonary embolism, chronic hypoxia on home oxygen, GERD, hypothyroidism, degenerative disease in cervical and lumbar spine, tobacco dependence This time presented to the hospital because of feeling anxious, cervical pain along with numbness and tingling sensation in bilateral upper extremity Cardiology was consulted to evaluate if patient has CHF exacerbation or not. Last hospitalized 6 weeks ago where she was treated for mild HFpEF exacerbation with IV Lasix. On review of her home medication it seems that she was discharged home on Lasix 40 mg daily. BP 163/73, heart rate 60 bpm, ECG shows sinus rhythm with left axis deviation, Labs shows WBC 13, hemoglobin 14, sodium 129, potassium 5.4, BUN 28, creatinine 0.6, BNP 700, troponin negative. 01/23 patient seen and examined. Patient denies any chest pain or pressure. Still has some arm numbness and tingling. Denies any significant shortness breath. Anxious to go home. PHYSICAL EXAMINATION Vital signs reviewed. Head: Normocephalic. Eyes: Sclerae nonicteric. Neck: Brisk carotid upstroke, no jugular venous distention. Lungs: Clear to auscultation. Heart: Regular rate and rhythm, S1-S2, no S3, no murmur or rub. Abdomen: Soft nontender, positive bowel sounds. Extremities: No edema, intact distal pulses. Neuro: Alert, oritented, no focal deficits. Detailed neuro exam was not performed. ASSESSMENT Bilateral upper extremity numbness and pain Cervical radiculopathy with neck pain Hyponatremia Essential hypertension COPD chronic hypoxia on home oxygen Small ulcers in bilateral lower extremity History of PE not on anticoagulation Tobacco use Echo November 2023, EF 55%, mild MR, mild TR Lexiscan nuclear January 2023, fixed inferior perfusion defect likely diaphragmatic attenuation PLAN patient appears euvolemic. Continue maintenence Lasix 40 mg daily Amlodipine 5 mg daily, metoprolol 25 mg twice daily, lisinopril 20 mg daily She is not on any systemic anticoagulation at home for prior history of DVT. Patient is stable from a cardiac perspective for discharge home with outpatient follow-up. Please call with any questions. Objective - Vital Signs Vital signs: Vital Signs Temp 97.6 F 01/24/24 07:05 Pulse 53 L 01/24/24 07:05 Resp 18 01/24/24 07:05 BP 158/89 01/24/24 07:05 Pulse Ox 94 L 01/24/24 09:13 FiO2 50 01/23/24 08:21 Intake & Output 01/23/24 01/24/24 01/24/24 18:59 06:59 18:59 Weight 67.6 kg Other: Voiding Method Toilet # Voids 4 3 - Labs CBC & Chem 7: 01/24/24 03:36 01/24/24 03:36 Labs: Abnormal Lab Results - Last 24 Hours (Table) 01/24/24 01/24/24 Range/Units 03:36 03:36 WBC 14.01 H (4.50-10.00) X 10*3/uL Immature Gran # 0.08 H (0.00-0.04) X 10*3/uL Neutrophils # 10.77 H (1.80-7.70) X 10*3/uL Monocytes # 1.42 H (0.20-1.00) X 10*3/uL Eosinophils # 0 L (0.04-0.35) X 10*3/uL Chloride 94 L (96-109) mmol/L Carbon Dioxide 33.3 H (21.6-31.8) mmol/L BUN 27.7 H (9.0-27.0) mg/dL BUN/Creatinine Ratio 39.57 H (12.00-20.00) Ratio Glucose 146 H (70-110) mg/dL
[2024-01-24 13:22] VITALS: BMI 29.0
[2024-01-24 14:10] VITALS: BP 150/68; PULSE 71; TEMP 98.7
--- NOTE | 2024-01-24 14:48 | P.PAINPG ---
Objective - Vital Signs Vital signs: Vital Signs Temp 98.7 F 01/24/24 13:03 Pulse 71 01/24/24 13:03 Resp 18 01/24/24 13:03 BP 150/68 01/24/24 13:03 Pulse Ox 92 L 01/24/24 13:03 FiO2 50 01/23/24 08:21 Intake & Output 01/23/24 01/24/24 01/24/24 18:59 06:59 18:59 Weight 67.6 kg 67.6 kg Other: Voiding Method Toilet # Voids 4 3 - Labs CBC & Chem 7: 01/24/24 03:36 01/24/24 03:36 Labs: Abnormal Lab Results - Last 24 Hours (Table) 01/24/24 01/24/24 Range/Units 03:36 03:36 WBC 14.01 H (4.50-10.00) X 10*3/uL Immature Gran # 0.08 H (0.00-0.04) X 10*3/uL Neutrophils # 10.77 H (1.80-7.70) X 10*3/uL Monocytes # 1.42 H (0.20-1.00) X 10*3/uL Eosinophils # 0 L (0.04-0.35) X 10*3/uL Chloride 94 L (96-109) mmol/L Carbon Dioxide 33.3 H (21.6-31.8) mmol/L BUN 27.7 H (9.0-27.0) mg/dL BUN/Creatinine Ratio 39.57 H (12.00-20.00) Ratio Glucose 146 H (70-110) mg/dL PQRS Measure Charge Sheet Comment: HISTORY OF PRESENT ILLNESS: A 68 yr old inpatient female as a referral from Dr Gould presents today w severe and chronic LBP > 1 yr secondary to DDD, spondylosis and facet arthropathy without myelopathy for evaluation. Pt underwent a BL MBB L3-L5 on 01/18/24 but was not clear whether she experienced substantial short term pain relief s/p procedure. She has a follow up visit scheduled at the clinic. She does not want any procedures and declined additional testing by myself also. Pt states pain level is provoked at 10 /10 in intensity, constant, localized in the lumbar spine, predominantly axial, sharp in character w occasional shooting pain towards the L & R of midline. Pain is provoked by any movement. Pain is alleviated by medications ([place] 5/325mg q6h prn, Tyl 650mg q6h prn, Lidoderm 4% QD), repositioning and rest . PMH: OA, Asthma, CHF, COPD, Fibromyalgia, GERD, HTN, PE, Hypothyroidism, IBS, MDD/ Anxiety/ Panic Disorder/ PTSD PSH: Bariatric Surgery, , Cholecystectomy, Hysterectomy, Deviated Septum Surgery, L Cataract Extraction w Laser (12/09), Tonsillectomy, Colonoscopies, EGDs SH: Daily tobacco use, No ETOH abuse, Cannabis use FH: Mo- CHF. Fa- Cardiac Disease from Rheumatic Fever, at age 47. All: See list Meds: See list REVIEW OF ORGAN SYSTEMS: CONSTITUTIONAL: No fevers or chills. No recent weight loss. NEUROLOGICAL: + numbness and tingling along the distal extremities. No seizure disorders or headaches. MUSCULOSKELETAL: + pain PSYCHIATRIC: Denies current depression or suicidal thoughts. Physical Examinations : Constitutional : Cooperative , not in acute distress . Neurologic : Cranial nerve II to XII intact. No focal neurological deficits. Psychiatric : alert & oriented x 3. Matching mood & appropriate affect. Judgment & insight intact. Musculoskeletal : Cervical Spine Motor strength in the deltoid and biceps: Normal right side. Normal Left side Motor strength biceps and the wrist extensors: Normal right side . Normal left side Motor strength in the triceps muscle: Normal right side. Normal left side Deep tendon reflexes: Normal at the biceps. Normal at Brachioradialis. Normal at triceps Vertebral body tenderness to deep palpation over Cervical facet loading test: positive bilaterally Spurling test: positive bilaterally Neck distraction test: positive bilaterally Dallas sign: positive bilaterally Lumbar spine Motor strength lower extremities ,thigh and legs 5/5 Right side , 5/5 Left side Deep tendon reflexes : Normal Knee Jerk. Normal Ankle Jerk Vertebral body tenderness over Cuevas Test positive Lumbar facet Loading Test: positive BL L3-L5 Range of motion of the lumbar spine Flexion 30 degrees, extension 10 degrees Straight Leg Raise test: Left/ Right positive at degrees Eladio test: positive right / positive left. Severe tenderness over the Sacroiliac joint on the Right / Left sides Gaenslen test: positive bilaterally Seated flexion test: positive bilaterally. Sacral spine : Severe tenderness over the Sacroiliac joint: right side / left side Range of motion: Flexion of the lumbar spine <60 degrees Range of motion: Extension of the lumbar spine <20 degrees Gaenslen's Test positive Eladio test: positive right side / left side Thigh Thrust Test Sacral Thrust Test Imaging: None while hospitalized Assessment/ Plan : Lumbar DDD Recommendation of medication management. Discussed short course of narcotic pain medications as pt is a cannabis user and has stated she will not quit any time s oon. Dangers of narcotic and cannabis use discussed. All questions answered. I have spent greater than 30 minutes on patient care today. Dr Moeller was available by phone for the evaluation of this patient. The time was used to review the medical records including relevant urine studies and Prescription history (MAPs), review of the available imaging, evaluation and examination of the patient, coordination of care with the medical staff and if applicable referring physicians, as well as creation of the medical record PQRS Narrative: Smoking Status Current every day smoker Blood Pressure [Right Arm] 150/68 Blood Pressure 150/70 Pain Intensity 6 Pain Scale Used Numeric (1 - 10) Scale Used Numeric (1 - 10) Hx Alcohol Use (MH) No Home Medications: Ambulatory Orders Montelukast [Singulair] 10 mg PO DAILY 12/17/13 Levothyroxine Sodium [Synthroid] 150 mcg PO DAILY 03/29/20 Budesonide/Formoterol Fumarate [Symbicort 160-4.5 Mcg Inhaler] 2 puff INHALATION RT-BID 06/12/21 Famotidine [Pepcid] 20 mg PO BID 09/03/21 Divalproex ER [Depakote ER] 250 mg PO HS 10/07/21 Tamsulosin [Flomax] 0.4 mg PO DAILY 10/26/21 Ferrous Sulfate [Iron (65 MG Elemental)] 325 mg PO DAILY 11/13/22 Ipratropium-Albuterol Nebulize [Duoneb 0.5 mg-3 mg/3 ml Soln] 3 ml INHALATION RT-QID PRN 11/13/22 Metoprolol Tartrate [Lopressor] 25 mg PO BID 11/13/22 Thiamine [Vitamin B-1] 100 mg PO DAILY 11/13/22 Albuterol Inhaler [Ventolin Hfa Inhaler] 2 puff INHALATION RT-QID PRN #1 each 11/17/22 Ibandronate Sodium [Boniva] 150 mg PO Q30D 05/03/23 Melatonin 5 mg PO HS PRN 05/03/23 lisinopriL [Zestril] 20 mg PO DAILY 05/03/23 Acetaminophen [Tylenol Arthritis] 650 mg PO Q4HR PRN 10/24/23 lamoTRIgine [LaMICtal] 150 mg PO BID 10/24/23 Venlafaxine HCl [Effexor XR] 150 mg PO DAILY 12/12/23 amLODIPine [Norvasc] 5 mg PO DAILY 12/12/23 clonazePAM [KlonoPIN ODT] 0.25 mg PO HS 12/12/23 Naproxen [EC-Naprosyn] 500 mg PO BID 30 Days #60 tab 01/03/24 Cefdinir [Omnicef] 300 mg PO BID 01/22/24 Citalopram Hydrobromide [CeleXA] 40 mg PO DAILY 01/22/24 OLANZapine [ZyPREXA] 15 mg PO HS 01/22/24 Controlled Substance Measures - Controlled Substance Measures Is patient prescribed a controlled substance at discharge?: No
== END 2024-01-24 16:31 | disposition home health service (06) | DRG 291 ==
LOC: EC 12:29 → 4SSUR 16:40
PROVIDERS: ADMIT Hospitalist; ATTEND Hospitalist
DX: I11.0 Hypertensive heart disease with heart failure (principal); I50.33 Acute on chronic diastolic (congestive) heart failure; J96.21 Acute and chronic respiratory failure with hypoxia; E87.1 Hypo-osmolality and hyponatremia; J44.1 Chronic obstructive pulmonary disease with (acute) exacerbation; M54.12 Radiculopathy, cervical region; E03.9 Hypothyroidism, unspecified; E11.9 Type 2 diabetes mellitus without complications; E87.5 Hyperkalemia; F17.200 Nicotine dependence, unspecified, uncomplicated; F31.9 Bipolar disorder, unspecified; F41.0 Panic disorder [episodic paroxysmal anxiety]; F43.10 Post-traumatic stress disorder, unspecified; G89.29 Other chronic pain; I16.0 Hypertensive urgency; M41.9 Scoliosis, unspecified; M79.7 Fibromyalgia; R32 Unspecified urinary incontinence; Z79.51 Long term (current) use of inhaled steroids; Z79.890 Hormone replacement therapy; Z79.899 Other long term (current) drug therapy; Z82.49 Family history of ischemic heart disease and other diseases of the circulatory system; Z86.711 Personal history of pulmonary embolism; Z87.19 Personal history of other diseases of the digestive system; Z98.84 Bariatric surgery status; Z88.5 Allergy status to narcotic agent; Z88.0 Allergy status to penicillin; Z88.2 Allergy status to sulfonamides
CPT/HCPCS: 36415; 71046; 80048; 80053; 83735; 83880; 84484; 85025; 85610; 85730; 93005; 94640; 94760; 96374; 96375; 99291

== ENCOUNTER → 2024-02-09 | Outpatient (CLI) | payer MEDICARE ==
[2024-02-09 12:01] VITALS: RESP 16
[2024-02-09 12:09] VITALS: BP 123/67; PULSE 65
--- NOTE | 2024-02-09 14:21 | P.PAINPG ---
PQRS Measure Charge Sheet Comment: HISTORY OF PRESENT ILLNESS: A 68 yr old wheelchair bound female w at side presents today w severe and chronic LBP > 1 yr secondary to DDD, spondylosis and facet arthropathy without myelopathy for evaluation s/p BL MBB L4-L5/ L5-S1 #1. Pt states she experienced 80% pain relief x 2 hr s/p procedure. Pt states pain level is provoked at 6 /10 in intensity, constant, localized in the lumbar spine, predominantly axial, sharp in character w occasional shooting pain towards the L & R of midline towards hips. Pain is provoked by walking/ standing for perids > 15 min. Pain is alleviated by PT x 6 wks which ended in Jan 2024, physician guided stretches daily since Jan 2024, medications, use of a wheelchair for ambulatory assistance, manual massage repositioning and rest . Oswestry axial pain score of 24. Interventional procedures include BL MBB L4-L5/ L5-S1 x1 Medications include Tyl, Ibu, Cannabis use REVIEW OF ORGAN SYSTEMS: CONSTITUTIONAL: No fevers or chills. No recent weight loss. NEUROLOGICAL: + numbness and tingling along the distal extremities. No seizure disorders or headaches. MUSCULOSKELETAL: + pain PSYCHIATRIC: Denies current depression or suicidal thoughts. Physical Examinations : Constitutional : Cooperative , not in acute distress . Neurologic : Cranial nerve II to XII intact. No focal neurological deficits. Psychiatric : alert & oriented x 3. Matching mood & appropriate affect. Judgment & insight intact. Musculoskeletal : Cervical Spine Motor strength in the deltoid and biceps: Normal right side. Normal Left side Motor strength biceps and the wrist extensors: Normal right side . Normal left side Motor strength in the triceps muscle: Normal right side. Normal left side Deep tendon reflexes: Normal at the biceps. Normal at Brachioradialis. Normal at triceps Vertebral body tenderness to deep palpation over Cervical facet loading test: positive bilaterally Spurling test: positive bilaterally Neck distraction test: positive bilaterally [place] sign: positive bilaterally Lumbar spine Motor strength lower extremities ,thigh and legs 5/5 Right side , 5/5 Left side Deep tendon reflexes : Normal Knee Jerk. Normal Ankle Jerk Vertebral body tenderness over Cuevas Test positive Lumbar facet Loading Test: positive BL L3-L5 Range of motion of the lumbar spine Flexion 30 degrees, extension 10 degrees Straight Leg Raise test: Left/ Right positive at degrees Eladio test: positive right / positive left. Severe tenderness over the Sacroiliac joint on the Right / Left sides Gaenslen test: positive bilaterally Seated flexion test: positive bilaterally. Sacral spine : Severe tenderness over the Sacroiliac joint: right side / left side Range of motion: Flexion of the lumbar spine <60 degrees Range of motion: Extension of the lumbar spine <20 degrees Gaenslen's Test positive Eladio test: positive right side / left side Thigh Thrust Test Sacral Thrust Test Imaging: None while hospitalized Assessment/ Plan : Lumbar DDD Recommendation of BL MBB L4-L5, L5-S1 #2. A series of injections, up until RFA, if effective. Risks, benefits of procedrue discussed and pt verbalized underst andingMinimal anesthesia including Fentanyl and Versed if clinically indicated. History of discussing short course of narcotic pain medications as pt is a cannabis user but has stated she will not quit any time soon. Dangers of narcotic and cannabis use was discussed. All questions answered. I have spent greater than 30 minutes on patient care today. Dr Moeller was available by phone for the evaluation of this patient. The time was used to review the medical records including relevant urine studies and Prescription history (MAPs), review of the available imaging, evaluation and examination of the patient, coordination of care with the medical staff and if applicable referring physicians, as well as creation of the medical record PQRS Narrative: Smoking Status Current every day smoker Hx Alcohol Use (MH) No Home Medications: Ambulatory Orders Montelukast [Singulair] 10 mg PO DAILY 12/17/13 Levothyroxine Sodium [Synthroid] 150 mcg PO DAILY 03/29/20 Budesonide/Formoterol Fumarate [Symbicort 160-4.5 Mcg Inhaler] 2 puff INHALATION RT-BID 06/12/21 Famotidine [Pepcid] 20 mg PO BID 09/03/21 Divalproex ER [Depakote ER] 250 mg PO HS 10/07/21 Tamsulosin [Flomax] 0.4 mg PO DAILY 10/26/21 Ferrous Sulfate [Iron (65 MG Elemental)] 325 mg PO DAILY 11/13/22 Ipratropium-Albuterol Nebulize [Duoneb 0.5 mg-3 mg/3 ml Soln] 3 ml INHALATION RT-QID PRN 11/13/22 Metoprolol Tartrate [Lopressor] 25 mg PO BID 11/13/22 Thiamine [Vitamin B-1] 100 mg PO DAILY 11/13/22 Albuterol Inhaler [Ventolin Hfa Inhaler] 2 puff INHALATION RT-QID PRN #1 each 11/17/22 Ibandronate Sodium [Boniva] 150 mg PO Q30D 05/03/23 Melatonin 5 mg PO HS PRN 05/03/23 lisinopriL [Zestril] 20 mg PO DAILY 05/03/23 Acetaminophen [Tylenol Arthritis] 650 mg PO Q4HR PRN 10/24/23 lamoTRIgine [LaMICtal] 150 mg PO BID 10/24/23 amLODIPine [Norvasc] 5 mg PO DAILY 12/12/23 clonazePAM [KlonoPIN ODT] 0.25 mg PO HS 12/12/23 Citalopram Hydrobromide [CeleXA] 40 mg PO DAILY 01/22/24 OLANZapine [ZyPREXA] 15 mg PO HS 01/22/24 Albuterol Nebulized [Ventolin Nebulized] 5 mg INHALATION RT-QID PRN #60 each 01/24/24 Furosemide [Lasix] 40 mg PO DAILY #30 tab 01/24/24 HYDROcodone/APAP 5-325MG [[place] 5-325] 1 each PO Q6HR PRN #6 tab 01/24/24 Lidocaine 4% Patch 1 patch TOPICAL DAILY 7 Days #7 patch 01/24/24 Nicotine 14Mg/24Hr Patch [Habitrol] 1 patch TRANSDERM DAILY patch 01/24/24 predniSONE 10 mg PO DIRECTED #30 tab 01/24/24 Controlled Substance Measures - Controlled Substance Measures Is patient prescribed a controlled substance at discharge?: No
== END ==
LOC: PNWHC3 10:57
PROVIDERS: ATTEND Specialist
DX: M51.36 Other intervertebral disc degeneration, lumbar region (principal); F17.200 Nicotine dependence, unspecified, uncomplicated; Z88.0 Allergy status to penicillin; Z88.5 Allergy status to narcotic agent; Z88.2 Allergy status to sulfonamides
CPT/HCPCS: 99211

== ENCOUNTER 2024-02-25 11:39 | Emergency (ER) | payer MEDICARE | END 2024-02-25 12:45 | disposition left against medical advice (07) | LOC: EC 11:39 | DX: Z53.21 Procedure and treatment not carried out due to patient leaving prior to being seen by health care provider (principal) | CPT/HCPCS: 99499 ==

== ENCOUNTER 2024-03-11 08:23 | Emergency (ER) | payer MEDICARE ==
[2024-03-11] MEDS ORDERED: KETOROLAC 15 MG/ML 1 ML VIAL ONE (09:03)
[2024-03-11] MEDS ORDERED: HYDROmorphone 1 MG/ML 1 ML SYRINGE ONE (09:03)
[2024-03-11] MEDS ORDERED: ONDANSETRON ODT 4 MG TAB ONE (09:03)
== END 2024-03-11 10:01 | disposition home or self-care (01) ==
LOC: EC 08:23
CPT/HCPCS: 96372; 99282

== ENCOUNTER 2024-03-13 09:28 | Emergency (ER) | payer MEDICARE ==
[2024-03-13 09:35] VITALS: TEMP 98
--- NOTE | 2024-03-13 10:22 | CT ---
EXAMINATION TYPE: CT lumbar spine wo con DATE OF EXAM: 03/13/2024 10:10 AM COMPARISON: 11/01/2023 HISTORY: chronic back pain CT DLP: 1306 mGycm Automated exposure control for dose reduction was used. Unenhanced CT of the lumbar spine was performed. Bone and soft tissue window settings are submitted as well as coronal and sagittal reconstructions. The heart is enlarged and there is coronary artery calcification. 5 basilar consolidation the lungs. Calcified granuloma. Previous gastric surgery. Bilateral renal calculi. Mild right hydronephrosis. No dularity of the right adrenal gland nonspecific most likely in the basis of benign adenoma. Severe rotatory scoliosis with severe degenerative disc disease at all levels. L1-L2: Severe degenerative disc disease. Mild bilateral foraminal encroachment. No obvious disc herni ation. L2-L3: Severe degenerative disc disease. Chronic deformity left and transverse process L3-L4: Severe degenerative disc disease with broad-based disc protrusion, facet arthropathy and bilat eral foraminal encroachment with moderate to severe central stenosis. L4-L5: Central disc herniation with severe compression of the thecal sac. Facet arthropathy and moder ate left and mild right foraminal encroachment. L5-S1: Severe degenerative disc disease with central disc herniation and disc osteophyte complex. Jose C ateral foraminal encroachment and canal stenosis. Hypertrophic SI joint arthropathy. Postcholecystectomy clips. Liver prominent in size. No left anteri or abdominal nonspecific calcification could be related to a colonic diverticulum. Additional surgica l clip in the right lower quadrant. IMPRESSION: 1. Severe scoliosis with severe degenerative disc disease at all levels. 2. Disc herniation L3-4, L4-5 and L5-S1 with severe canal stenosis. 3. Multilevel foraminal encroachment. 4. Bilateral renal calculi. 5. Right lower lobe atelectasis versus early infiltrate.
[2024-03-13 10:46] LABS: Basophils # (A) 0.1 k/uL (0-0.2); Basophils % (A) 1 %; Eosinophils # (A) 0.2 k/uL (0-0.7); Eosinophils % (A) 2 %; HCT 39.8 % (34.0-46.0); HGB 12.9 gm/dL (11.4-16.0); Lymphocytes # (A) 2.4 k/uL (1.0-4.8); Lymphocytes % (A) 16 %; MCH 31.4 pg (25.0-35.0); MCHC 32.4 g/dL (31.0-37.0); Mean Platelet Volume 7.3; Monocytes # (A) 0.8 k/uL (0-1.0); Monocytes % (A) 5 %; Neutrophils # (A) 11.6 k/uL (1.3-7.7); Neutrophils % (A) 76 %; Platelet Count 287 k/uL (150-450); RDW 13.4 % (11.5-15.5); WBC 15.3 k/uL (3.8-10.6)
[2024-03-13 10:48] LABS: ALT 92 U/L (4-34); AST 60 U/L (14-36); African American GFR (CKD) >90 (>60 ml/min/1.73 sqM); Albumin 3.5 g/dL (3.5-5.0); Alkaline Phosphatase 63 U/L (38-126); Anion Gap 2 mmol/L; Blood Urea Nitrogen 16 mg/dL (7-17); Calcium 9.6 mg/dL (8.4-10.2); Carbon Dioxide 29 mmol/L (22-30); Chloride 96 mmol/L (98-107); Glucose 82 mg/dL (74-99); Magnesium 1.4 mg/dL (1.6-2.3); Non-African American GFR(CKD) >90 (>60 ml/min/1.73 sqM); Potassium 4.7 mmol/L (3.5-5.1); Sodium 127 mmol/L (137-145); Total Bilirubin 0.6 mg/dL (0.2-1.3); Total Protein 5.4 g/dL (6.3-8.2)
--- NOTE | 2024-03-13 11:01 | ED ---
General Adult HPI - General Chief complaint: Back Pain/Injury Stated complaint: back pain Time Seen by Provider: 03/13/24 09:37 Source: patient, family, RN notes reviewed Mode of arrival: wheelchair Limitations: no limitations - History of Present Illness Initial comments: 68-year-old female presents emergency department chief complaint of lower chest pain, back pain. Patient states that she has known back issues in which she states that she has received injections in the past. She was seen here few days ago for back pain and received some analgesics which helped. Patient states she has worsening pressure in her lower chest feels like someone's squeezing her. She also complains of numbness in her vaginal and perianal region. Patient denies any loss of function of her lower extremities. Patient denies any trauma no fevers she is concerned about possible UTI. - Related Data Home Medications Medication Instructions Recorded Confirmed Montelukast [Singulair] 10 mg PO DAILY 12/17/13 01/22/24 Levothyroxine Sodium [Synthroid] 150 mcg PO DAILY 03/29/20 01/22/24 Budesonide/Formoterol Fumarate 2 puff INHALATION RT-BID 06/12/21 01/22/24 [Symbicort 160-4.5 Mcg Inhaler] Famotidine [Pepcid] 20 mg PO BID 09/03/21 01/22/24 Divalproex ER [Depakote ER] 250 mg PO HS 10/07/21 01/22/24 Tamsulosin [Flomax] 0.4 mg PO DAILY 10/26/21 01/22/24 Ferrous Sulfate [Iron (65 MG 325 mg PO DAILY 11/13/22 01/22/24 Elemental)] Ipratropium-Albuterol Nebulize 3 ml INHALATION RT-QID PRN 11/13/22 01/22/24 [Duoneb 0.5 mg-3 mg/3 ml Soln] Metoprolol Tartrate [Lopressor] 25 mg PO BID 11/13/22 01/22/24 Thiamine [Vitamin B-1] 100 mg PO DAILY 11/13/22 01/22/24 Ibandronate Sodium [Boniva] 150 mg PO Q30D 05/03/23 01/22/24 Melatonin 5 mg PO HS PRN 05/03/23 01/22/24 lisinopriL [Zestril] 20 mg PO DAILY 05/03/23 01/22/24 Acetaminophen [Tylenol Arthritis] 650 mg PO Q4HR PRN 10/24/23 01/22/24 lamoTRIgine [LaMICtal] 150 mg PO BID 10/24/23 01/22/24 amLODIPine [Norvasc] 5 mg PO DAILY 12/12/23 01/22/24 clonazePAM [KlonoPIN ODT] 0.25 mg PO HS 12/12/23 01/22/24 Citalopram Hydrobromide [CeleXA] 40 mg PO DAILY 01/22/24 01/22/24 OLANZapine [ZyPREXA] 15 mg PO HS 01/22/24 01/22/24 Previous Rx's Medication Instructions Recorded Albuterol Inhaler [Ventolin Hfa 2 puff INHALATION RT-QID PRN #1 11/17/22 Inhaler] each Albuterol Nebulized [Ventolin 5 mg INHALATION RT-QID PRN #60 each 01/24/24 Nebulized] Furosemide [Lasix] 40 mg PO DAILY #30 tab 01/24/24 HYDROcodone/APAP 5-325MG [[place] 1 each PO Q6HR PRN #6 tab 01/24/24 5-325] Lidocaine 4% Patch 1 patch TOPICAL DAILY 7 Days #7 01/24/24 patch Nicotine 14Mg/24Hr Patch [Habitrol] 1 patch TRANSDERM DAILY patch 01/24/24 predniSONE 10 mg PO DIRECTED #30 tab 01/24/24 Naproxen [Naprosyn] 500 mg PO BID 30 Days #60 tablet 02/16/24 HYDROcodone/APAP 5-325MG [[place] 5] 1 each PO Q6HR PRN #12 tab 03/13/24 Allergies Allergy/AdvReac Type Severity Reaction Status Date / Time codeine Allergy Unknown Verified 01/22/24 17:38 Childhood Penicillins Allergy Rash/Hives Verified 01/22/24 17:38 Sulfa (Sulfonamide Allergy Rash/Hives Verified 01/22/24 17:38 Antibiotics) Review of Systems ROS Statement: Those systems with pertinent positive or pertinent negative responses have been documented in the HPI. ROS Other: All systems not noted in ROS Statement are negative. Past Medical History Past Medical History: Asthma, Heart Failure, COPD, Fibromyalgia, GERD/Reflux, Hypertension, Osteoarthritis (OA), Pneumonia, Pulmonary Embolus (PE), Skin Disorder, Thyroid Disorder Additional Past Medical History / Comment(s): Spinal Stenosis, Cervical disc disease/stenosis, scoliosis, recently having numbness/tingling L side of face/neck, recently saw tanker service attendant for L hemidiaphragmatic elevation-pt states she was told this was probably genetic, recently bronchitis and past bronchitis, pt states recent med change (water pill) d/t electrolyte problem/kidney function being affected, pt states she has had pulmonary emboli, past bilateral lower extremity cellulitis, edema lower extremities, IBS, hemorrhoids, benign colon polyps, sinus problems, UTIs, bacteremia/sepsis, cardiac murmur, past L ankle and L wrist fractures. History of Any Multi-Drug Resistant Organisms: None Reported Past Surgical History: Bariatric Surgery, Section, Cholecystectomy, Hysterectomy, Tonsillectomy Additional Past Surgical History / Comment(s): EGD, colonoscopies, gastric bypass, surgery for deviated septum, left cataract removal (having laser procedure on that eye 11/24/23) Past Anesthesia/Blood Transfusion Reactions: Previous Problems w/ Anesthesia Additional Past Anesthesia/Blood Transfusion Reaction / Comment(s): itching after hysterectomy, some kind of breathing problem after gastric bypass-not sure what happened Past Psychological History: Anxiety, Bipolar, Depression, Panic Disorder Smoking Status: Current every day smoker Past Alcohol Use History: None Reported Past Drug Use History: Marijuana - Past Family History Mother Family Medical History: Congestive Heart Failure (CHF), Hypertension Father History Unknown: Yes Additional Family Medical History / Comment(s): Father at the age of 45 yrs d/t having had rheumatic fever as a child and heart valve disease. General Exam Limitations: no limitations General appearance: alert, in no apparent distress Head exam: Present: atraumatic, normocephalic, normal inspection ENT exam: Present: normal exam, mucous membranes moist Neck exam: Present: normal inspection. Absent: tenderness, meningismus, lymphadenopathy Respiratory exam: Present: normal lung sounds bilaterally. Absent: respiratory distress, wheezes, rales, rhonchi, stridor Cardiovascular Exam: Present: regular rate, normal rhythm, normal heart sounds. Absent: systolic murmur, diastolic murmur, rubs, gallop, clicks GI/Abdominal exam: Present: soft, tenderness, normal bowel sounds. Absent: distended, guarding, rebound, rigid Extremities exam: Present: normal inspection, full ROM, normal capillary refill. Absent: tenderness, pedal edema, joint swelling, calf tenderness Back exam: Present: tenderness, paraspinal tenderness, vertebral tenderness. Absent: full ROM Neurological exam: Present: alert, oriented X3, CN II-XII intact, reflexes myles l. Absent: motor sensory deficit Skin exam: Present: warm, dry, intact, normal color. Absent: rash Course Vital Signs 03/13/24 03/13/24 09:33 12:39 Temperature 98 F Pulse Rate 69 64 Respiratory 16 24 Rate Blood Pressure 110/52 194/90 O2 Sat by Pulse 93 L 94 L Oximetry EKG Findings - EKG Comments: EKG Findings:: EKG performed at 10: 13 sinus bradycardia rate of 58 [place] 201 QRS 118 QT/QTc 392/389 - EKG Results: EKG: interpreted by FIDELINA Medical Decision Making - Medical Decision Making Was pt. sent in by a medical professional or institution (, PA, SPECTROGRAPHIC ANALYST, urgent care, hospital, or custodial...) When possible be specific @ -No Did you speak to anyone other than the patient for history (EMS, parent, family, police, friend...)? What history was obtained from this source @ -No Did you review nursing and triage notes (agree or disagree)? Why? @ -I reviewed and agree with nursing and triage notes Were old charts reviewed (outside hosp., previous admission, EMS record, old EKG, old radiological studies, urgent care reports/EKG's, custodial records)? Report findings @ -No old charts were reviewed Differential Diagnosis (chest pain, altered mental status, abdominal pain women, abdominal pain men, vaginal bleeding, weakness, fever, dyspnea, syncope, headache, dizziness, GI bleed, back pain, seizure, CVA, palpatations, mental health, musculoskeletal)? @ -Differential Back Pain: Strain, zoster, cauda equina syndrome, epidural abscess, vertebral osteomyelitis, discitis, fracture, subluxation, disc herniation, DJD, spinal stenosis, dissection, AAA, pancreatitis, peptic ulcer disease, pyelonephritis, kidney stone, this is not meant to be an all-inclusive list. Differential Chest Pain: Stable Angina, Unstable Angina, STEMI, NSTEMI Aortic Dissection, Pneumothorax, Musculoskeletal, Esophageal Spasm GERD, Cholecystitis, Pancreatitis, Zoster, this is not meant to be an all-inclusive list. EKG interpreted by me (3pts min.). @ -As above X-rays interpreted by me (1pt min.). @ -[Chest x-ray shows no acute cardiopulmonary process CT interpreted by me (1pt min.). @ -See the lumbar spine showing multiple degenerative changes, herniated disc noted U/S interpreted by me (1pt. min.). @ -None done What testing was considered but not performed or refused? (CT, X-rays, U/S, labs)? Why? @ -None What meds were considered but not given or refused? Why? @ -None Did you discuss the management of the patient with other professionals ( professionals i.e. , PA, SPECTROGRAPHIC ANALYST, lab, RT, psych nurse, social work specialist, heel slicker, teacher, light armored reconnaissance officer, medical case worker)? Give summary @ -No Was smoking cessation discussed for >3mins.? @ -No Was critical care preformed (if so, how long)? @ -No Were there social determinants of health that impacted care today? How? (Homelessness, low income, unemployed, alcoholism, drug addiction, transportation, low edu. Level, literacy, decrease access to med. care, custodial, rehab)? @ -No Was there de-escalation of care discussed even if they declined (Discuss DNR or withdrawal of care, Hospice)? DNR status @ -No What co-morbidities impacted this encounter? (DM, HTN, Smoking, COPD, CAD, Cancer, CVA, ARF, Chemo, Hep., AIDS, mental health diagnosis, sleep apnea, morbid obesity)? @ -Degenerative disc disease Was patient admitted / discharged? Hospital course, mention meds given and route, prescriptions, significant lab abnormalities, going to OR and other pertinent info. @ -[Discharge/AMA patient was offered admission given concerning symptoms of saddle esthesia, possible cauda equina symptoms (present for 10 days. Patient refuses stating she understands the risk of leaving including , paralysis. She also is complaining of chest discomfort which cardiac enzymes are negative but could complete cardiac workup. Patient advised to follow-up with pain management, orthopedic spine patient did have mild hyponatremia given IV fluids, recommended admission for IV fluids. Patient refuses again. Patient understands risk of leaving. Undiagnosed new problem with uncertain prognosis? @ -No Drug Therapy requiring intensive monitoring for toxicity (Heparin, Nitro, Insulin, Cardizem)? @ -No Were any procedures done? @ -No Diagnosis/symptom? @ -Back pain, cervicalgia,, radicular pain, chest pain, anxiety Acute, or Chronic, or Acute on Chronic? @ -Acute Uncomplicated (without systemic symptoms) or Complicated (systemic symptoms)? @ -Comp given Side effects of treatment? @ -No Exacerbation, Progression, or Severe Exacerbation? @ -No Poses a threat to life or bodily function? How? (Chest pain, [place], [place], pneumonia, PE, COPD, DKA, ARF, appy, cholecystitis, CVA, Diverticulitis, Homicidal, Suicidal, threat to staff... and all critical care pts) @ -No - Lab Data Result diagrams: 03/13/24 10:20 03/13/24 10:20 Lab Results 03/13/24 03/13/24 03/13/24 Range/Units 10:20 10:20 10:20 WBC 15.3 H (3.8-10.6) k/uL RBC 4.10 (3.80-5.40) m/uL Hgb 12.9 (11.4-16.0) gm/dL Hct 39.8 (34.0-46.0) % MCV 97.0 D (80.0-100.0) fL MCH 31.4 (25.0-35.0) pg MCHC 32.4 (31.0-37.0) g/dL RDW 13.4 (11.5-15.5) % Plt Count 287 (150-450) k/uL MPV 7.3 Neutrophils % 76 % Lymphocytes % 16 % Monocytes % 5 % Eosinophils % 2 % Basophils % 1 % Neutrophils # 11.6 H (1.3-7.7) k/uL Lymphocytes # 2.4 (1.0-4.8) k/uL Monocytes # 0.8 (0-1.0) k/uL Eosinophils # 0.2 (0-0.7) k/uL Basophils # 0.1 (0-0.2) k/uL Sodium 127 L (137-145) mmol/L Potassium 4.7 (3.5-5.1) mmol/L Chloride 96 L (98-107) mmol/L Carbon Dioxide 29 (22-30) mmol/L Anion Gap 2 mmol/L BUN 16 (7-17) mg/dL Creatinine 0.51 L (0.52-1.04) mg/dL Est GFR (CKD-EPI)AfAm >90 (>60 ml/min/1.73 sqM) Est GFR (CKD-EPI)NonAf >90 (>60 ml/min/1.73 sqM) Glucose 82 (74-99) mg/dL Calcium 9.6 (8.4-10.2) mg/dL Magnesium 1.4 L (1.6-2.3) mg/dL Total Bilirubin 0.6 (0.2-1.3) mg/dL AST 60 H (14-36) U/L ALT 92 H (4-34) U/L Alkaline Phosphatase 63 (38-126) U/L Troponin I (0.000-0.034) ng/mL Total Protein 5.4 L (6.3-8.2) g/dL Albumin 3.5 (3.5-5.0) g/dL Urine Color Light Yellow Urine Appearance Clear (Clear) Urine pH 6.5 (5.0-8.0) Ur Specific [place] 1.013 (1.001-1.035) Urine Protein Negative (Negative) Urine Glucose (UA) Negative (Negative) Urine Ketones Negative (Negative) Urine Blood Negative (Negative) Urine Nitrite Negative (Negative) Urine Bilirubin Negative (Negative) Urine Urobilinogen <2.0 (<2.0) mg/dL Ur Leukocyte Esterase Moderate H (Negative) Urine RBC 1 (0-5) /hpf Urine WBC 10 H (0-5) /hpf Ur Squamous Epith Cells 3 (0-4) /hpf Urine Bacteria Rare H (None) /hpf Hyaline Casts 1 (0-2) /lpf Urine Mucus Rare H (None) /hpf 03/13/24 Range/Units 10:20 WBC (3.8-10.6) k/uL RBC (3.80-5.40) m/uL Hgb (11.4-16.0) gm/dL Hct (34.0-46.0) % MCV (80.0-100.0) fL MCH (25.0-35.0) pg MCHC (31.0-37.0) g/dL RDW (11.5-15.5) % Plt Count (150-450) k/uL MPV Neutrophils % % Lymphocytes % % Monocytes % % Eosinophils % % Basophils % % Neutrophils # (1.3-7.7) k/uL Lymphocytes # (1.0-4.8) k/uL Monocytes # (0-1.0) k/uL Eosinophils # (0-0.7) k/uL Basophils # (0-0.2) k/uL Sodium (137-145) mmol/L Potassium (3.5-5.1) mmol/L Chloride (98-107) mmol/L Carbon Dioxide (22-30) mmol/L Anion Gap mmol/L BUN (7-17) mg/dL Creatinine (0.52-1.04) mg/dL Est GFR (CKD-EPI)AfAm (>60 ml/min/1.73 sqM) Est GFR (CKD-EPI)NonAf (>60 ml/min/1.73 sqM) Glucose (74-99) mg/dL Calcium (8.4-10.2) mg/dL Magnesium (1.6-2.3) mg/dL Total Bilirubin (0.2-1.3) mg/dL AST (14-36) U/L ALT (4-34) U/L Alkaline Phosphatase (38-126) U/L Troponin I <0.012 (0.000-0.034) ng/mL Total Protein (6.3-8.2) g/dL Albumin (3.5-5.0) g/dL Urine Color Urine Appearance (Clear) Urine pH (5.0-8.0) Ur Specific [place] (1.001-1.035) Urine Protein (Negative) Urine Glucose (UA) (Negative) Urine Ketones (Negative) Urine Blood (Negative) Urine Nitrite (Negative) Urine Bilirubin (Negative) Urine Urobilinogen (<2.0) mg/dL Ur Leukocyte Esterase (Negative) Urine RBC (0-5) /hpf Urine WBC (0-5) /hpf Ur Squamous Epith Cells (0-4) /hpf Urine Bacteria (None) /hpf Hyaline Casts (0-2) /lpf Urine Mucus (None) /hpf Disposition Clinical Impression: Back pain, Radicular pain, Herniated disc, Chest pain, Anxiety Disposition: HOME SELF-CARE Condition: Stable Instructions (If sedation given, give patient instructions): Back Pain (ED) Additional Instructions: Please return to the Emergency Department if symptoms worsen or any other co ncerns. Prescriptions: HYDROcodone/APAP 5-325MG [[place] 5] 1 each PO Q6HR PRN #12 tab PRN Reason: Pain Is patient prescribed a controlled substance at d/c from ED?: Yes When asked, does pt state using other controlled substances?: No If prescribed controlled substance>3 days was MAPS reviewed?: Prescribed <3 Days If opioid is for acute pain is fill amount 7 days or less?: Yes If Rx opioid, was Start Talking consent form obtained?: Yes Referrals: Andrzej Wheeler MD [Primary Care Provider] - 1-2 days Mark Alex DO [Doctor of Osteopathic Medicine] - 1-2 days Time of Disposition: 13:01
[2024-03-13 11:25] LABS: Appearance,Urine Clear (Clear); Bacteria,Urine Rare /hpf; Bilirubin,Urine Negative (Negative); Blood,Urine Negative (Negative); Color,Urine Light Yellow; Glucose,Urine (UA) Negative (Negative); Hyaline Casts,Urine 1 /lpf (0-2); Ketones,Urine Negative (Negative); Leukocyte Esterase,Urine Moderate (Negative); Mucus,Urine Rare /hpf; Nitrite,Urine Negative (Negative); PH, Urine 6.5 (5.0-8.0); Protein,Urine Negative (Negative); RBC,Urine 1 /hpf (0-5); Specific Gravity,Urine 1.013 (1.001-1.035); Squamous Epithelial Cell,Urine 3 /hpf (0-4); Urobilinogen,Urine <2.0 mg/dL (<2.0); WBC,Urine 10 /hpf (0-5)
[2024-03-13] MEDS: KETOROLAC 15 MG/ML 1 ML VIAL IVP STA (11:38)
[2024-03-13] MEDS: HYDROmorphone 0.5 MG/0.5 ML SYRINGE IVP STA ×2 (11:38→13:05)
[2024-03-13] MEDS: methylPREDNISolone SOD SUCCI 125 MG/2 ML VIAL IV STA (11:39)
[2024-03-13] MEDS: SODIUM CHLORIDE 0.9% 1,000 ML IV ONE (11:39)
--- NOTE | 2024-03-13 12:19 | XR ---
EXAMINATION TYPE: XR chest 2V DATE OF EXAM: 03/13/2024 12:06 PM CLINICAL INDICATION: Female, 68 years old with history of pain; [facility] COMPARISON: Chest radiographs from 01/22/2024 TECHNIQUE: XR chest 2V Frontal view of the chest. FINDINGS: Lungs/Pleura: There is no evidence of pleural effusion, focal consolidation, or pneumothorax. Pulmonary vascularity: Unremarkable. Heart/mediastinum: Cardiomediastinal silhouette is unremarkable. Musculoskeletal: No acute osseous pathology. IMPRESSION: No acute cardiopulmonary disease/process.
[2024-03-13 13:09] VITALS: BP 181/88; PULSE 68; RESP 18
== END 2024-03-13 13:32 | disposition home or self-care (01) ==
LOC: EC 09:28
DX: R52 Pain, unspecified
CPT/HCPCS: 36415; 71046; 72131; 80053; 81001; 83735; 84484; 85025; 93005; 96361; 96374; 96375; 96376; 99284

== ENCOUNTER 2024-03-15 11:29 | Emergency (ER) | payer MEDICARE ==
[2024-03-15 11:41] VITALS: TEMP 98
--- NOTE | 2024-03-15 12:03 | ED ---
Recheck HPI - General Source: patient, RN notes reviewed Mode of arrival: wheelchair Limitations: no limitations <Emely Ramirez - Last Filed: 03/15/24 12:02> - General Source: patient, RN notes reviewed, old records reviewed <Anibal Pearce - Last Filed: 03/15/24 16:57> - General Chief Complaint: Recheck/Abnormal Lab/Rx Stated Complaint: L sided hip pain Time Seen by Provider: 03/15/24 12:02 - History of Present Illness Initial Comments: Quick note: 68-year female presented to ER with a chief complaint of left groin pain. Patient also is reporting bilateral leg numbness. History of chronic back issues. Patient denies any bowel or bladder incontinence, fevers, chills or saddle paresthesias. Patient was seen here couple days ago and prescribed [place]. Patient is unable to obtain prescription due to pharmacy issues. No new injuries or traumas. (Emely Ramirez) Patient originally seen as a quick note. Is a 68-year-old female with chronic back pain and chronic pain issues. Was seen the other day and discharged home with a prescription for [place] which she cannot fill as the pharmacy she typically goes to is without it. Presents for pain control. States she still has continued pain on the left part of her back with radiation towards the left groin. Endorses occasional bilateral leg numbness which is chronic for the patient going on for years. No acute changes with that. Denies any bowel or bladder incontinence. Denies any saddle paresthesias. Denies any new injuries. Presents for pain control. States that the pain seems to have migrated more towards the left lower quadrant and groin area which was not present the other day.Denies urinary complaints, nausea, vomiting, diarrhea. (Anibal Pearce) - Related Data Home Medications Medication Instructions Recorded Confirmed Montelukast [Singulair] 10 mg PO DAILY 12/17/13 01/22/24 Levothyroxine Sodium [Synthroid] 150 mcg PO DAILY 03/29/20 01/22/24 Budesonide/Formoterol Fumarate 2 puff INHALATION RT-BID 06/12/21 01/22/24 [Symbicort 160-4.5 Mcg Inhaler] Famotidine [Pepcid] 20 mg PO BID 09/03/21 01/22/24 Divalproex ER [Depakote ER] 250 mg PO HS 10/07/21 01/22/24 Tamsulosin [Flomax] 0.4 mg PO DAILY 10/26/21 01/22/24 Ferrous Sulfate [Iron (65 MG 325 mg PO DAILY 11/13/22 01/22/24 Elemental)] Ipratropium-Albuterol Nebulize 3 ml INHALATION RT-QID PRN 11/13/22 01/22/24 [Duoneb 0.5 mg-3 mg/3 ml Soln] Metoprolol Tartrate [Lopressor] 25 mg PO BID 11/13/22 01/22/24 Thiamine [Vitamin B-1] 100 mg PO DAILY 11/13/22 01/22/24 Ibandronate Sodium [Boniva] 150 mg PO Q30D 05/03/23 01/22/24 Melatonin 5 mg PO HS PRN 05/03/23 01/22/24 lisinopriL [Zestril] 20 mg PO DAILY 05/03/23 01/22/24 Acetaminophen [Tylenol Arthritis] 650 mg PO Q4HR PRN 10/24/23 01/22/24 lamoTRIgine [LaMICtal] 150 mg PO BID 10/24/23 01/22/24 amLODIPine [Norvasc] 5 mg PO DAILY 12/12/23 01/22/24 clonazePAM [KlonoPIN ODT] 0.25 mg PO HS 12/12/23 01/22/24 Citalopram Hydrobromide [CeleXA] 40 mg PO DAILY 01/22/24 01/22/24 OLANZapine [ZyPREXA] 15 mg PO HS 01/22/24 01/22/24 Previous Rx's Medication Instructions Recorded Albuterol Inhaler [Ventolin Hfa 2 puff INHALATION RT-QID PRN #1 11/17/22 Inhaler] each Albuterol Nebulized [Ventolin 5 mg INHALATION RT-QID PRN #60 each 01/24/24 Nebulized] Furosemide [Lasix] 40 mg PO DAILY #30 tab 01/24/24 HYDROcodone/APAP 5-325MG [[place] 1 each PO Q6HR PRN #6 tab 01/24/24 5-325] Lidocaine 4% Patch 1 patch TOPICAL DAILY 7 Days #7 01/24/24 patch Nicotine 14Mg/24Hr Patch [Habitrol] 1 patch TRANSDERM DAILY patch 01/24/24 predniSONE 10 mg PO DIRECTED #30 tab 01/24/24 Naproxen [Naprosyn] 500 mg PO BID 30 Days #60 tablet 02/16/24 HYDROcodone/APAP 5-325MG [[place] 5] 1 each PO Q6HR PRN #12 tab 03/13/24 HYDROcodone/APAP 5-325MG [[place] 1 tab PO Q6HR PRN 3 Days #12 tab 03/15/24 5-325] Allergies Allergy/AdvReac Type Severity Reaction Status Date / Time codeine Allergy Unknown Verified 03/15/24 11:41 Childhood Penicillins Allergy Rash/Hives Verified 03/15/24 11:41 Sulfa (Sulfonamide Allergy Rash/Hives Verified 03/15/24 11:41 Antibiotics) Review of Systems ROS Other: All systems not noted in ROS Statement are negative. <Emely Ramirez - Last Filed: 03/15/24 12:02> ROS Other: All systems not noted in ROS Statement are negative. <Anibal Pearce - Last Filed: 03/15/24 16:57> ROS Statement: Those systems with pertinent positive or pertinent negative responses have been documented in the HPI. Review of Systems: CONST: Denies fever EYES: Denies blurry vision ENT: Denies nasal congestion C/V: Denies Chest pain RESP: Denies shortness of breath GI: Denies abdominal pain : Denies dysuria SKIN: Denies rash. 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 History of Any Multi-Drug Resistant Organisms: None Reported Past Surgical History: Bariatric Surgery, Section, Cholecystectomy, Hysterectomy, Tonsillectomy Additional Past Surgical History / Comment(s): EGD, colonoscopies, gastric bypass, surgery for deviated septum, left cataract removal (having laser procedure on that eye 11/24/23) Past Anesthesia/Blood Transfusion Reactions: Previous Problems w/ Anesthesia Additional Past Anesthesia/Blood Transfusion Reaction / Comment(s): itching after hysterectomy, some kind of breathing problem after gastric bypass-not sure what happened Past Psychological History: Anxiety, Bipolar, Depression, Panic Disorder Smoking Status: Current every day smoker Past Alcohol Use History: None Reported Past Drug Use History: Marijuana - Past Family History Mother Family Medical History: Congestive Heart Failure (CHF), Hypertension Father History Unknown: Yes Additional Family Medical History / Comment(s): Father at the age of 45 yrs d/t having had rheumatic fever as a child and heart valve disease. <Emely Ramirez - Last Filed: 03/15/24 12:02> General Exam Limitations: no limitations <Emely Ramirez - Last Filed: 03/15/24 12:02> <Anibal Pearce - Last Filed: 03/15/24 16:57> - General Exam Comments Initial Comments: Visual Physical Exam Vital signs reviewed General: Well-appearing, nontoxic, no acute distress. Head: Normocephalic, atraumatic Eyes: PERRLA, EOMI ENT: Airway patent Chest: Nonlabored breathing Skin: No visual rash, normal skin tone Neuro: Alert and oriented 3 Musculoskeletal: No gross abnormalities (Emely Ramirez) General: Appears in no acute distress. HEAD: Normal with no signs of head trauma. EYES: PERRLA, EOMI, conjunctiva normal, no discharge. ENT: Hearing grossly intact, normal oropharynx. RESPIRATORY: Clear breath sounds bilaterally. No wheezes, rales, or rhonchi. C/V: Regular rate and rhythm. S1 and S2 auscultated, no edema, peripheral pulses 2+ and intact throughout ABD: Abd is soft, nontender, nondistended. No significant tenderness to palpation EXT: Patient has left lower lumbar paraspinal muscle tenderness to palpation and worse with movement. SKIN: No rashes or lesions observed on exposed skin. NEURO: Alert and oriented x 4. No focal deficits. (Anibal Pearce) Course Vital Signs 03/15/24 03/15/24 11:39 15:36 Temperature 98 F Pulse Rate 60 69 Respiratory 22 18 Rate Blood Pressure 115/56 144/69 O2 Sat by Pulse 92 L 90 L Oximetry Medical Decision Making <Emely Ramirez - Last Filed: 03/15/24 12:02> - Lab Data Result diagrams: 03/15/24 13:39 03/15/24 13:39 - EKG Data -: EKG Interpreted by Me <Anibal Pearce - Last Filed: 03/15/24 16:57> - Medical Decision Making I performed the quick note portion of this chart. Electronically signed by Emely Ramirez PA-C (Emely Ramirez) Was pt. sent in by a medical professional or institution ([facility] Shepard, BRAND MARKETING INTERN, urgent care, hospital, or intermediate...) When possible be specific @ -No Did you speak to anyone other than the patient for history (EMS, parent, family, police, friend...)? What history was obtained from this source @ -No Did you review nursing and triage notes (agree or disagree)? Why? @ -I reviewed and agree with nursing and triage notes Were old charts reviewed (outside hosp., previous admission, EMS record, old EKG, old radiological studies, urgent care reports/EKG's, intermediate records)? Report findings @ -Reviewed visit from March 13, 2024 including imaging results. No significant findings at that time. Degenerative changes present on CT of the lumbar spine. Differential Diagnosis (chest pain, altered mental status, abdominal pain women, abdominal pain men, vaginal bleeding, weakness, fever, dyspnea, syncope, headache, dizziness, GI bleed, back pain, seizure, CVA, palpatations, mental health, musculoskeletal)? @ -Differential Back Pain: Strain, zoster, cauda equina syndrome, epidural abscess, vertebral osteomyelitis, discitis, fracture, subluxation, disc herniation, DJD, spinal stenosis, dissection, AAA, pancreatitis, peptic ulcer disease, pyelonephritis, kidney stone, this is not meant to be an all-inclusive list. EKG interpreted by me (3pts min.). @ -As above X-rays interpreted by me (1pt min.). @ -None done CT interpreted by me (1pt min.). @ -CT abdomen pelvis negative for any obvious acute process. U/S interpreted by me (1pt. min.). @ -None done What testing was considered but not performed or refused? (CT, X-rays, U/S, la bs)? Why? @ -None What meds were considered but not given or refused? Why? @ -None Did you discuss the management of the patient with other professionals (professionals i.e. , PA, BRAND MARKETING INTERN, lab, RT, psych nurse, social science teacher, pipe fitter gas pipe, teacher, senior officer, housing case manager)? Give summary @ -No Was smoking cessation discussed for >3mins.? @ -No Was critical care preformed (if so, how long)? @ -No Were there social determinants of health that impacted care today? How? (Homelessness, low income, unemployed, alcoholism, drug addiction, transportation, low edu. Level, literacy, decrease access to med. care, intermediate, rehab)? @ -No Was there de-escalation of care discussed even if they declined (Discuss DNR or withdrawal of care, Hospice)? DNR status @ -No What co-morbidities impacted this encounter? (DM, HTN, Smoking, COPD, CAD, Cancer, CVA, ARF, Chemo, Hep., AIDS, mental health diagnosis, sleep apnea, morbid obesity)? @ -Chronic back pain Was patient admitted / discharged? Hospital course, mention meds given and route, prescriptions, significant lab abnormalities, going to OR and other p ertinent info. @ -Patient presents with acute on chronic back pain. Unable to obtain her [place] prescription for a few days ago due to pharmacy issues. Vital signs within acceptable limits. States the pain is migrating out towards the groin more. We will obtain general abdominal labs and obtain CT of the abdomen pelvis. Patient was in agreement this plan. Vital signs within acceptable limits. Laboratory studies are within acceptable limits except for mild hyponatremia which was treated with a [address] abdomen pelvis unremarkable. EKG showed no signs of acute ischemia. On reevaluation, I discussed results with patient. Recommended she follow-up with her PCP. Strict return precautions discussed. She was given a new [place] prescription at this time. She was in agreement this plan. I will provide the patient with a prescription for [place] 5 mg. I instructed the patient to follow up with their PCP in the next 1-3 days.. I explained that the patient should return to the emergency department if they experience any worsening symptoms. Strict return precautions were discussed with the patient. The patient expressed understanding of these instructions. I answered all questions that the patient had. The patient was discharged home in good condition with their prescriptions and follow up information. Undiagnosed new problem with uncertain prognosis? @ -No Drug Therapy requiring intensive monitoring for toxicity (Heparin, Nitro, Insulin, Cardizem)? @ -No Were any procedures done? @ -No Diagnosis/symptom? @ -Chronic pain, chronic back pain Acute, or Chronic, or Acute on Chronic? @ -Acute on chronic Uncomplicated (without systemic symptoms) or Complicated (systemic symptoms)? @ -Uncomplicated Side effects of treatment? @ -No Exacerbation, Progression, or Severe Exacerbation? @ -No Poses a threat to life or bodily function? How? (Chest pain, [place], [place], pneumonia, PE, COPD, DKA, ARF, appy, cholecystitis, CVA, Diverticulitis, Homicidal, Suicidal, threat to staff... and all critical care pts) @ -Unlikely (Anibal Pearce) - Lab Data Lab Results 03/15/24 03/15/24 03/15/24 Range/Units 13:39 13:39 13:39 WBC 12.8 H (3.8-10.6) k/uL RBC 4.19 (3.80-5.40) m/uL Hgb 13.3 (11.4-16.0) gm/dL Hct 40.1 (34.0-46.0) % MCV 95.6 (80.0-100.0) fL MCH 31.8 (25.0-35.0) pg MCHC 33.3 (31.0-37.0) g/dL RDW 13.2 (11.5-15.5) % Plt Count 310 (150-450) k/uL MPV 6.8 Neutrophils % 64 % Lymphocytes % 27 % Monocytes % 6 % Eosinophils % 2 % Basophils % 1 % Neutrophils # 8.1 H (1.3-7.7) k/uL Lymphocytes # 3.4 (1.0-4.8) k/uL Monocytes # 0.8 (0-1.0) k/uL Eosinophils # 0.2 (0-0.7) k/uL Basophils # 0.1 (0-0.2) k/uL Sodium 127 L (137-145) mmol/L Potassium 4.8 (3.5-5.1) mmol/L Chloride 98 (98-107) mmol/L Carbon Dioxide 29 (22-30) mmol/L Anion Gap 0 mmol/L BUN 14 (7-17) mg/dL Creatinine 0.47 L (0.52-1.04) mg/dL Est GFR (CKD-EPI)AfAm >90 (>60 ml/min/1.73 sqM) Est GFR (CKD-EPI)NonAf >90 (>60 ml/min/1.73 sqM) Glucose 76 (74-99) mg/dL Calcium 9.8 (8.4-10.2) mg/dL Total Bilirubin 0.8 (0.2-1.3) mg/dL AST 46 H (14-36) U/L ALT 74 H (4-34) U/L Alkaline Phosphatase 68 (38-126) U/L Total Protein 5.9 L (6.3-8.2) g/dL Albumin 3.9 (3.5-5.0) g/dL Amylase 63 (30-110) U/L Lipase 154 (23-300) U/L Urine Color Colorless Urine Appearance Clear (Clear) Urine pH 6.5 (5.0-8.0) Ur Specific Edison 1.004 (1.001-1.035) Urine Protein Negative (Negative) Urine Glucose (UA) Negative (Negative) Urine Ketones Negative (Negative) Urine Blood Negative (Negative) Urine Nitrite Negative (Negative) Urine Bilirubin Negative (Negative) Urine Urobilinogen <2.0 (<2.0) mg/dL Ur Leukocyte Esterase Negative (Negative) - EKG Data EKG Comments: 12-lead Electrocardiogram Interpretation Note EKG was reviewed and interpreted by myself. 12-lead ECG performed at 1354 is interpreted by me as revealing normal sinus rhythm at a rate of 73 beats per minute. [place] is normal. NE interval is 151 ms, QRS duration is 120 ms, QTc is 400 ms.. There were no ST or T wave abnormalities to suggest myocardial ischemia or injury. R wave progression across the precordium was satisfactory. By my interpretation this EKG is non-diagnostic for acute ischemia. (Anibal Pearce) Disposition <Emely Ramirez - Last Filed: 03/15/24 12:02> Is patient prescribed a controlled substance at d/c from ED?: No Time of Disposition: 15:50 <Anibal Pearce - Last Filed: 03/15/24 16:57> Clinical Impression: Chronic pain, Back pain Disposition: HOME SELF-CARE Condition: Good Instructions (If sedation given, give patient instructions): Chronic Back Pain (DC) Prescriptions: HYDROcodone/APAP 5-325MG [[place] 5-325] 1 tab PO Q6HR PRN 3 Days #12 tab PRN Reason: Pain Referrals: Andrzej Wheeler MD [Primary Care Provider] - 1-2 days
[2024-03-15] MEDS: ONDANSETRON 4 MG/2 ML VIAL IVP STA (13:33)
[2024-03-15] MEDS: MORPHINE SULFATE 4 MG/ML SYRINGE IVP STA (13:33)
[2024-03-15] MEDS: SODIUM CHLORIDE 0.9% 1,000 ML IV STA (13:34)
[2024-03-15 13:50] LABS: Basophils # (A) 0.1 k/uL (0-0.2); Basophils % (A) 1 %; Eosinophils # (A) 0.2 k/uL (0-0.7); Eosinophils % (A) 2 %; HCT 40.1 % (34.0-46.0); HGB 13.3 gm/dL (11.4-16.0); Lymphocytes # (A) 3.4 k/uL (1.0-4.8); Lymphocytes % (A) 27 %; MCH 31.8 pg (25.0-35.0); MCHC 33.3 g/dL (31.0-37.0); MCV 95.6 fL (80.0-100.0); Mean Platelet Volume 6.8; Monocytes # (A) 0.8 k/uL (0-1.0); Monocytes % (A) 6 %; Neutrophils # (A) 8.1 k/uL (1.3-7.7); Neutrophils % (A) 64 %; Platelet Count 310 k/uL (150-450); RBC 4.19 m/uL (3.80-5.40); RDW 13.2 % (11.5-15.5); WBC 12.8 k/uL (3.8-10.6)
[2024-03-15 13:56] LABS: ALT 74 U/L (4-34); AST 46 U/L (14-36); African American GFR (CKD) >90 (>60 ml/min/1.73 sqM); Albumin 3.9 g/dL (3.5-5.0); Alkaline Phosphatase 68 U/L (38-126); Amylase 63 U/L (30-110); Anion Gap 0 mmol/L; Blood Urea Nitrogen 14 mg/dL (7-17); Calcium 9.8 mg/dL (8.4-10.2); Carbon Dioxide 29 mmol/L (22-30); Chloride 98 mmol/L (98-107); Glucose 76 mg/dL (74-99); Lipase 154 U/L (23-300); Non-African American GFR(CKD) >90 (>60 ml/min/1.73 sqM); Potassium 4.8 mmol/L (3.5-5.1); Sodium 127 mmol/L (137-145); Total Bilirubin 0.8 mg/dL (0.2-1.3); Total Protein 5.9 g/dL (6.3-8.2)
[2024-03-15 14:01] LABS: Appearance,Urine Clear (Clear); Bilirubin,Urine Negative (Negative); Blood,Urine Negative (Negative); Color,Urine Colorless; Glucose,Urine (UA) Negative (Negative); Ketones,Urine Negative (Negative); Leukocyte Esterase,Urine Negative (Negative); Nitrite,Urine Negative (Negative); PH, Urine 6.5 (5.0-8.0); Protein,Urine Negative (Negative); Specific Gravity,Urine 1.004 (1.001-1.035); Urobilinogen,Urine <2.0 mg/dL (<2.0)
--- NOTE | 2024-03-15 14:58 | CT ---
EXAMINATION TYPE: CT abdomen pelvis w con CT DLP: 1196.7 mGycm, Automated exposure control for dose reduction was used. DATE OF EXAM: 03/15/2024 2:48 PM COMPARISON: CT abdomen pelvis 05/15/2011 CLINICAL INDICATION:Female, 68 years old with history of abdominal pain. left flank/groin; TECHNIQUE: Standard CT of the abdomen and pelvis following the administration of 100 cc of Isovue 3 00 IV contrast material. Coronal and sagittal reformats were performed. FINDINGS: LOWER CHEST: Right basilar linear atelectasis. Elevation of the left hemidiaphragm. Cardiomegaly. Aor tic valvular and mitral annulus calcifications. ABDOMEN LIVER: Unremarkable GALLBLADDER AND BILE DUCTS: Gallbladder is surgically absent with mild intrahepatic and extra hepatic biliary dilatation likely physiologic and a postcholecystectomy change. No evidence of choledocholit hiasis. PANCREAS: Unremarkable. SPLEEN: Unremarkable. ADRENAL GLANDS: Unremarkable. KIDNEYS AND URETERS: No evidence of hydronephrosis. Nonobstructive right inferior pole 3 mm calculus. Additional punctate left lower pole nonobstructive calculus. The kidneys enhance symmetrically. Cont rast is demonstrated within both collecting systems on the delayed phase. PELVIS BLADDER: Incompletely distended but grossly unremarkable. REPRODUCTIVE: The uterus is surgically absent. ABDOMEN & PELVIS STOMACH AND BOWEL: Postsurgical changes of the stomach from gastric bypass. No focal bowel wall thick ening or surrounding inflammatory changes. No evidence of bowel obstruction. PERITONEUM: No evidence of pneumoperitoneum or free fluid. Dropped surgical clip within the right low er quadrant. VASCULATURE: Moderate atherosclerotic calcifications are present throughout the abdominal aorta and i ts branches. No evidence of aortic aneurysm. Tortuosity of the abdominal aorta. Pelvic phleboliths. MUSCULOSKELETAL: No acute osseous abnormalities. Levoscoliotic curvature of the lumbar spine. LYMPH NODES: No gross evidence for lymphadenopathy. SOFT TISSUE/ABDOMINAL WALL: Mild diffuse anasarca. Diastases rectus. IMPRESSION: 1. No ultrasound evidence for acute abdominopelvic process. 2. Nonobstructive bilateral renal calculi. 3. Postcholecystectomy changes.
[2024-03-15 15:37] VITALS: BP 144/69; PULSE 69; RESP 18
== END 2024-03-15 15:43 | disposition home or self-care (01) ==
LOC: EC 11:29
CPT/HCPCS: 36415; 74177; 80053; 81003; 82150; 83690; 85025; 93005; 96361; 96374; 96375; 99284

== ENCOUNTER 2024-03-17 11:05 | Emergency (ER) | payer MEDICARE ==
--- NOTE | 2024-03-17 11:46 | ED ---
Back Pain HPI - General Chief Complaint: Back Pain/Injury Stated Complaint: Left flank pain, back pain Time Seen by Provider: 03/17/24 11:30 Source: patient, RN notes reviewed Limitations: no limitations - History of Present Illness Initial Comments: 68-year-old female presenting with left flank pain x 5 days. States that pain is sharp and radiates to the left groin. She has had 2 ER visits for this complaint in the last [address] scanning of abdomen/pelvis, CT lumbar spine, and lab work which all returned negative. She was discharged with pain medication and instructed to follow-up with her PCP. Patient states she has not followed up with her PCP, but is concerned as she is still having pain. Denies saddle anesthesia, numbness, tingling in the legs, bowel or bladder incontinence. - Related Data Home Medications Medication Instructions Recorded Confirmed Montelukast [Singulair] 10 mg PO DAILY 12/17/13 01/22/24 Levothyroxine Sodium [Synthroid] 150 mcg PO DAILY 03/29/20 01/22/24 Budesonide/Formoterol Fumarate 2 puff INHALATION RT-BID 06/12/21 01/22/24 [Symbicort 160-4.5 Mcg Inhaler] Famotidine [Pepcid] 20 mg PO BID 09/03/21 01/22/24 Divalproex ER [Depakote ER] 250 mg PO HS 10/07/21 01/22/24 Tamsulosin [Flomax] 0.4 mg PO DAILY 10/26/21 01/22/24 Ferrous Sulfate [Iron (65 MG 325 mg PO DAILY 11/13/22 01/22/24 Elemental)] Ipratropium-Albuterol Nebulize 3 ml INHALATION RT-QID PRN 11/13/22 01/22/24 [Duoneb 0.5 mg-3 mg/3 ml Soln] Metoprolol Tartrate [Lopressor] 25 mg PO BID 11/13/22 01/22/24 Thiamine [Vitamin B-1] 100 mg PO DAILY 11/13/22 01/22/24 Ibandronate Sodium [Boniva] 150 mg PO Q30D 05/03/23 01/22/24 Melatonin 5 mg PO HS PRN 05/03/23 01/22/24 lisinopriL [Zestril] 20 mg PO DAILY 05/03/23 01/22/24 Acetaminophen [Tylenol Arthritis] 650 mg PO Q4HR PRN 10/24/23 01/22/24 lamoTRIgine [LaMICtal] 150 mg PO BID 10/24/23 01/22/24 amLODIPine [Norvasc] 5 mg PO DAILY 12/12/23 01/22/24 clonazePAM [KlonoPIN ODT] 0.25 mg PO HS 12/12/23 01/22/24 Citalopram Hydrobromide [CeleXA] 40 mg PO DAILY 01/22/24 01/22/24 OLANZapine [ZyPREXA] 15 mg PO HS 01/22/24 01/22/24 Previous Rx's Medication Instructions Recorded Albuterol Inhaler [Ventolin Hfa 2 puff INHALATION RT-QID PRN #1 11/17/22 Inhaler] each Albuterol Nebulized [Ventolin 5 mg INHALATION RT-QID PRN #60 each 01/24/24 Nebulized] Furosemide [Lasix] 40 mg PO DAILY #30 tab 01/24/24 HYDROcodone/APAP 5-325MG [Ely 1 each PO Q6HR PRN #6 tab 01/24/24 5-325] Lidocaine 4% Patch 1 patch TOPICAL DAILY 7 Days #7 01/24/24 patch Nicotine 14Mg/24Hr Patch [Habitrol] 1 patch TRANSDERM DAILY patch 01/24/24 predniSONE 10 mg PO DIRECTED #30 tab 01/24/24 Naproxen [Naprosyn] 500 mg PO BID 30 Days #60 tablet 02/16/24 HYDROcodone/APAP 5-325MG [Ely 5] 1 each PO Q6HR PRN #12 tab 03/13/24 HYDROcodone/APAP 5-325MG [Ely 1 tab PO Q6HR PRN 3 Days #12 tab 03/15/24 5-325] Allergies Allergy/AdvReac Type Severity Reaction Status Date / Time codeine Allergy Unknown Verified 03/17/24 11:19 Childhood Penicillins Allergy Rash/Hives Verified 03/17/24 11:19 Sulfa (Sulfonamide Allergy Rash/Hives Verified 03/17/24 11:19 Antibiotics) Review of Systems ROS Statement: Those systems with pertinent positive or pertinent negative responses have been documented in the HPI. ROS Other: All systems not noted in ROS Statement are negative. Past Medical History Past Medical History: Asthma, Heart Failure, COPD, Fibromyalgia, GERD/Reflux, Hypertension, Osteoarthritis (OA), Pneumonia, Pulmonary Embolus (PE), Skin Disorder, Thyroid Disorder Additional Past Medical History / Comment(s): Spinal Stenosis, Cervical disc disease/stenosis, scoliosis, recently having numbness/tingling L side of face/neck, recently saw ophthalmic technician for L hemidiaphragmatic elevation-pt states she was told this was probably genetic, recently bronchitis and past bronchitis, pt states recent med change (water pill) d/t electrolyte problem/kidney function being affected, pt states she has had pulmonary emboli, past bilateral lower extremity cellulitis, edema lower extremities, IBS, hemorrhoids, benign colon polyps, sinus problems, UTIs, bacteremia/sepsis, cardiac murmur, past L ankle and L wrist fractures. History of Any Multi-Drug Resistant Organisms: None Reported Past Surgical History: Bariatric Surgery, Section, Cholecystectomy, Hysterectomy, Tonsillectomy Additional Past Surgical History / Comment(s): EGD, colonoscopies, gastric bypass, surgery for deviated septum, left cataract removal (having laser procedure on that eye 11/24/23) Past Anesthesia/Blood Transfusion Reactions: Previous Problems w/ Anesthesia Additional Past Anesthesia/Blood Transfusion Reaction / Comment(s): itching after hysterectomy, some kind of breathing problem after gastric bypass-not sure what happened Past Psychological History: Anxiety, Bipolar, Depression, Panic Disorder Smoking Status: Current every day smoker Past Alcohol Use History: None Reported Past Drug Use History: Marijuana - Past Family History Mother Family Medical History: Congestive Heart Failure (CHF), Hypertension Father History Unknown: Yes Additional Family Medical History / Comment(s): Father at the age of 45 yrs d/t having had rheumatic fever as a child and heart valve disease. General Exam Limitations: no limitations General appearance: alert, in no apparent distress Head exam: Present: atraumatic, normocephalic, normal inspection Neck exam: Present: normal inspection. Absent: tenderness, meningismus, lymphadenopathy Respiratory exam: Present: normal lung sounds bilaterally. Absent: respiratory distress, wheezes, rales, rhonchi, stridor Cardiovascular Exam: Present: regular rate, normal rhythm, normal heart sounds. Absent: systolic murmur, diastolic murmur, rubs, gallop, clicks GI/Abdominal exam: Present: soft, normal bowel sounds. Absent: distended, tenderness, guarding, rebound, rigid Extremities exam: Present: normal inspection, full ROM, normal capillary refill. Absent: tenderness, pedal edema, joint swelling, calf tenderness Back exam: Present: normal inspection, full ROM, other (Full strength and range of motion of bilateral hips, no saddle anesthesia, full sensation and DP pulses bilaterally). Absent: tenderness, CVA tenderness (R), CVA tenderness (L) Neurological exam: Present: alert, oriented X3 Psychiatric exam: Present: normal affect, normal mood Skin exam: Present: warm, dry, intact, normal color. Absent: rash Course Vital Signs 03/17/24 03/17/24 03/17/24 11:14 13:27 14:06 Temperature 98.1 F 97.9 F Pulse Rate 68 87 81 Respiratory 20 18 18 Rate Blood Pressure 154/81 166/82 165/72 O2 Sat by Pulse 92 L 92 L 95 Oximetry Medical Decision Making - Medical Decision Making Was pt. sent in by a medical professional or institution (Dr. PA, [facility], urgent care, hospital, or long term...) When possible be specific @ -No Did you speak to anyone other than the patient for history (EMS, parent, family, police, friend...)? What history was obtained from this source @ -No Did you review nursing and triage notes (agree or disagree)? Why? @ -I reviewed and agree with nursing and triage notes Were old charts reviewed (outside hosp., previous admission, EMS record, old EKG, old radiological studies, urgent care reports/EKG's, long term records)? Report findings @ -Previous ER visits including labs and CT scans were reviewed Differential Diagnosis (chest pain, altered mental status, abdominal pain women, abdominal pain men, vaginal bleeding, weakness, fever, dyspnea, syncope, headache, dizziness, GI bleed, back pain, seizure, CVA, palpatations, mental health, musculoskeletal)? @ -Differential Abdominal Pain Women: Appendicitis, Cholecystitis, diverticulosis, ischemic bowel, pancreatitis, hepatitis, UTI, gastroenteritis, AAA, incarcerated hernia, bowel obstruction, constipation, inflammatory bowel, hepatitis, peptic ulcer disease, splenic infarction, perforated viscus, vulvitis, ovarian torsion, PID, kidney stone, placenta abruption, this is not meant to be an all-inclusive list EKG interpreted by me (3pts min.). @ -None X-rays interpreted by me (1pt min.). @ -None done CT interpreted by me (1pt min.). @ -None done U/S interpreted by me (1pt. min.). @ -None done What testing was considered but not performed or refused? (CT, X-rays, U/S, labs)? Why? @ -Imaging not performed due to patient had CT scan lumbar spine and CT abdomen pelvis within the last 5 days with same symptoms, no new symptoms What meds were considered but not given or refused? Why? @ -None Did you discuss the management of the patient with other professionals (professionals i.e. , PA, [facility], lab, RT, psych nurse, social service technician, diesel engine i pipe fitter, teacher, planned giving officer, disease case manager)? Give summary @ -No Was smoking cessation discussed for >3mins.? @ -No Was critical care preformed (if so, how long)? @ -No Were there social determinants of health that impacted care today? How? (Homelessness, low income, unemployed, alcoholism, drug addiction, transportation, low edu. Level, literacy, decrease access to med. care, retirement, rehab)? @ -No Was there de-escalation of care discussed even if they declined (Discuss DNR or withdrawal of care, Hospice)? DNR status @ -No What co-morbidities impacted this encounter? (DM, HTN, Smoking, COPD, CAD, Cancer, CVA, ARF, Chemo, Hep., AIDS, mental health diagnosis, sleep apnea, morbid obesity)? @ -None Was patient admitted / discharged? Hospital course, mention meds given and route, prescriptions, significant lab abnormalities, going to OR and other pertinent info. @ -Patient was discharged. Patient was seen and evaluated for left flank pain x 5 days with radiation to the left groin. Vitals within normal limits. Patient is afebrile, nontachycardic. No sign of bacterial infection upon examination. No red flag symptoms. Neurovascularly intact. No tenderness to palpation of abdomen. Patient provided with analgesics while awaiting workup. Lab work inc luding CBC, CMP, lactic acid remarkable for white blood cell count of 17, changed from 12.5 2 days ago. Sodium is 125 which is mildly decreased from 127 2 days ago. Urine is negative for bacteria and blood. Discussed findings with patient. Patient states she would like to be discharged at this time and does not want to be admitted to the hospital today. She states she prefers to follow-up with her primary care physician. I believe this is reasonable at this time as symptoms appear to be chronic in nature. Patient has had multiple ER visits for this complaint including multiple CT scans which returned negative for acute process. Strict return precautions discussed with patient and patient is agreeable to plan. Case was discussed with my ED attending Dr. Gould. Patient discharged stable condition. Undiagnosed new problem with uncertain prognosis? @ -No Drug Therapy requiring intensive monitoring for toxicity (Heparin, Nitro, Insulin, Cardizem)? @ -No Were any procedures done? @ -No Diagnosis/symptom? @ -Left flank pain Acute, or Chronic, or Acute on Chronic? @ -Acute on chronic Uncomplicated (without systemic symptoms) or Complicated (systemic symptoms)? @ -Uncomplicated Side effects of treatment? @ -No Exacerbation, Progression, or Severe Exacerbation? @ -No Poses a threat to life or bodily function? How? (Chest pain, [place], [place], pneumonia, PE, COPD, DKA, ARF, appy, cholecystitis, CVA, Diverticulitis, Homicidal, Suicidal, threat to staff... and all critical care pts) @ -Unlikely at this time - Lab Data Result diagrams: 03/17/24 11:57 03/17/24 11:57 Lab Results 03/17/24 03/17/24 03/17/24 Range/Units 11:57 11:57 11:57 WBC 17.3 H (3.8-10.6) k/uL RBC 3.89 (3.80-5.40) m/uL Hgb 12.4 (11.4-16.0) gm/dL Hct 37.1 (34.0-46.0) % MCV 95.4 (80.0-100.0) fL MCH 31.7 (25.0-35.0) pg MCHC 33.3 (31.0-37.0) g/dL RDW 13.1 (11.5-15.5) % Plt Count 276 (150-450) k/uL MPV 7.3 Neutrophils % 82 % Lymphocytes % 10 % Monocytes % 6 % Eosinophils % 1 % Basophils % 0 % Neutrophils # 14.1 H (1.3-7.7) k/uL Lymphocytes # 1.8 (1.0-4.8) k/uL Monocytes # 1.0 (0-1.0) k/uL Eosinophils # 0.2 (0-0.7) k/uL Basophils # 0.1 (0-0.2) k/uL Sodium 125 L (137-145) mmol/L Potassium 4.3 (3.5-5.1) mmol/L Chloride 96 L (98-107) mmol/L Carbon Dioxide 26 (22-30) mmol/L Anion Gap 3 mmol/L BUN 12 (7-17) mg/dL Creatinine 0.46 L (0.52-1.04) mg/dL Est GFR (CKD-EPI)AfAm >90 (>60 ml/min/1.73 sqM) Est GFR (CKD-EPI)NonAf >90 (>60 ml/min/1.73 sqM) Glucose 81 (74-99) mg/dL Plasma Lactic Acid Joel 0.6 L (0.7-2.0) mmol/L Calcium 9.3 (8.4-10.2) mg/dL Total Bilirubin 0.9 (0.2-1.3) mg/dL AST 42 H (14-36) U/L ALT 57 H (4-34) U/L Alkaline Phosphatase 59 (38-126) U/L Total Protein 5.7 L (6.3-8.2) g/dL Albumin 3.7 (3.5-5.0) g/dL Urine Color Urine Appearance (Clear) Urine pH (5.0-8.0) Ur Specific [place] (1.001-1.035) Urine Protein (Negative) Urine Glucose (UA) (Negative) Urine Ketones (Negative) Urine Blood (Negative) Urine Nitrite (Negative) Urine Bilirubin (Negative) Urine Urobilinogen (<2.0) mg/dL Ur Leukocyte Esterase (Negative) 03/17/24 Range/Units 12:44 WBC (3.8-10.6) k/uL RBC (3.80-5.40) m/uL Hgb (11.4-16.0) gm/dL Hct (34.0-46.0) % MCV (80.0-100.0) fL MCH (25.0-35.0) pg MCHC (31.0-37.0) g/dL RDW (11.5-15.5) % Plt Count (150-450) k/uL MPV Neutrophils % % Lymphocytes % % Monocytes % % Eosinophils % % Basophils % % Neutrophils # (1.3-7.7) k/uL Lymphocytes # (1.0-4.8) k/uL Monocytes # (0-1.0) k/uL Eosinophils # (0-0.7) k/uL Basophils # (0-0.2) k/uL Sodium (137-145) mmol/L Potassium (3.5-5.1) mmol/L Chloride (98-107) mmol/L Carbon Dioxide (22-30) mmol/L Anion Gap mmol/L BUN (7-17) mg/dL Creatinine (0.52-1.04) mg/dL Est GFR (CKD-EPI)AfAm (>60 ml/min/1.73 sqM) Est GFR (CKD-EPI)NonAf (>60 ml/min/1.73 sqM) Glucose (74-99) mg/dL Plasma Lactic Acid Joel (0.7-2.0) mmol/L Calcium (8.4-10.2) mg/dL Total Bilirubin (0.2-1.3) mg/dL AST (14-36) U/L ALT (4-34) U/L Alkaline Phosphatase (38-126) U/L Total Protein (6.3-8.2) g/dL Albumin (3.5-5.0) g/dL Urine Color Light Yellow Urine Appearance Clear (Clear) Urine pH 5.5 (5.0-8.0) Ur Specific [place] 1.012 (1.001-1.035) Urine Protein Negative (Negative) Urine Glucose (UA) Negative (Negative) Urine Ketones Trace H (Negative) Urine Blood Negative (Negative) Urine Nitrite Negative (Negative) Urine Bilirubin Negative (Negative) Urine Urobilinogen <2.0 (<2.0) mg/dL Ur Leukocyte Esterase Negative (Negative) Disposition Clinical Impression: Left flank pain Disposition: HOME SELF-CARE Condition: Stable Additional Instructions: Follow-up with PCP as discussed. Please return to the Emergency Department if symptoms worsen or any other concerns. Is patient prescribed a controlled substance at d/c from ED?: No Referrals: Andrzej Wheeler MD [Primary Care Provider] - 1-2 days Time of Disposition: 13:50
[2024-03-17] MEDS: HYDROcodone/APAP 5-325MG 1 EACH TAB PO STA (11:58)
[2024-03-17 12:33] LABS: Basophils # (A) 0.1 k/uL (0-0.2); Basophils % (A) 0 %; Eosinophils # (A) 0.2 k/uL (0-0.7); Eosinophils % (A) 1 %; HCT 37.1 % (34.0-46.0); HGB 12.4 gm/dL (11.4-16.0); Lymphocytes # (A) 1.8 k/uL (1.0-4.8); Lymphocytes % (A) 10 %; MCH 31.7 pg (25.0-35.0); MCHC 33.3 g/dL (31.0-37.0); MCV 95.4 fL (80.0-100.0); Mean Platelet Volume 7.3; Monocytes % (A) 6 %; Neutrophils # (A) 14.1 k/uL (1.3-7.7); Neutrophils % (A) 82 %; Platelet Count 276 k/uL (150-450); RBC 3.89 m/uL (3.80-5.40); RDW 13.1 % (11.5-15.5); WBC 17.3 k/uL (3.8-10.6)
[2024-03-17 12:45] LABS: ALT 57 U/L (4-34); AST 42 U/L (14-36); African American GFR (CKD) >90 (>60 ml/min/1.73 sqM); Albumin 3.7 g/dL (3.5-5.0); Alkaline Phosphatase 59 U/L (38-126); Anion Gap 3 mmol/L; Blood Urea Nitrogen 12 mg/dL (7-17); Calcium 9.3 mg/dL (8.4-10.2); Carbon Dioxide 26 mmol/L (22-30); Chloride 96 mmol/L (98-107); Glucose 81 mg/dL (74-99); Non-African American GFR(CKD) >90 (>60 ml/min/1.73 sqM); Potassium 4.3 mmol/L (3.5-5.1); Sodium 125 mmol/L (137-145); Total Bilirubin 0.9 mg/dL (0.2-1.3); Total Protein 5.7 g/dL (6.3-8.2)
[2024-03-17 12:56] LABS: Appearance,Urine Clear (Clear); Bilirubin,Urine Negative (Negative); Blood,Urine Negative (Negative); Color,Urine Light Yellow; Glucose,Urine (UA) Negative (Negative); Ketones,Urine Trace (Negative); Leukocyte Esterase,Urine Negative (Negative); Nitrite,Urine Negative (Negative); PH, Urine 5.5 (5.0-8.0); Protein,Urine Negative (Negative); Specific Gravity,Urine 1.012 (1.001-1.035); Urobilinogen,Urine <2.0 mg/dL (<2.0)
[2024-03-17 13:33] VITALS: RESP 18
[2024-03-17 14:09] VITALS: BP 165/72; PULSE 81; TEMP 97.9
[2024-03-17] MEDS: LORazepam 2 MG/ML INJ IV STA (14:11)
== END 2024-03-17 14:23 | disposition home or self-care (01) ==
LOC: EC 11:05
CPT/HCPCS: 36415; 80053; 81003; 83605; 85025; 96374; 99284

== ENCOUNTER 2024-03-18 09:35 | Inpatient (IN) | payer MEDICARE ==
[2024-03-18] MEDS: KETOROLAC 15 MG/ML 1 ML VIAL IVP STA (11:07)
[2024-03-18] MEDS: SODIUM CHLORIDE 0.9% 1,000 ML IV STA (11:07)
[2024-03-18] MEDS: LORazepam 2 MG/ML INJ IV STA (11:08)
--- NOTE | 2024-03-18 11:10 | ED ---
Recheck HPI - General Chief Complaint: Recheck/Abnormal Lab/Rx Stated Complaint: Numbness/Anxiety Time Seen by Provider: 03/18/24 11:09 Source: patient, family, RN notes reviewed Limitations: no limitations - History of Present Illness Initial Comments: 88-year-old female presenting to the ER with a chief complaint of back pain and numbness. Patient has been seen here times in the past week for similar complaints. Patient states she has chronic back pain and is following up with Dr. Alex. She describes the pain as sharp in nature with radiation up her back that has been progressively worsening throughout the week. Denies any new injuries or traumas. Pain radiates to left groin. She reports a "numb/tingly" sensation to epigastric region. She also reports a numbness in her neck and forehead. She denies any saddle paresthesias, bowel or bladder incontinence, wea kness, fevers or history of IV drug use. She states she is able to walk but is limited due to pain. She has been taking prescribed Empire without relief. Patient reports shortness of breath but states this is chronic in nature as she typically wears 4 L of nasal cannula oxygen at home. Denies any peripheral edema, orthopnea or exertional dyspnea. Denies any chest pain, abdominal pain, constipation/diarrhea, urinary complaints. - Related Data Home Medications Medication Instructions Recorded Confirmed Montelukast [Singulair] 10 mg PO HS 12/17/13 03/18/24 Levothyroxine Sodium [Synthroid] 150 mcg PO DAILY 03/29/20 03/18/24 Budesonide/Formoterol Fumarate 2 puff INHALATION RT-BID 06/12/21 03/18/24 [Symbicort 160-4.5 Mcg Inhaler] Famotidine [Pepcid] 20 mg PO BID 09/03/21 03/18/24 Divalproex ER [Depakote ER] 250 mg PO HS 10/07/21 03/18/24 Tamsulosin [Flomax] 0.4 mg PO DAILY@1200 10/26/21 03/18/24 Ferrous Sulfate [Iron (65 MG 325 mg PO DAILY 11/13/22 03/18/24 Elemental)] Ipratropium-Albuterol Nebulize 3 ml INHALATION RT-QID PRN 11/13/22 03/18/24 [Duoneb 0.5 mg-3 mg/3 ml Soln] Metoprolol Tartrate [Lopressor] 25 mg PO BID 11/13/22 03/18/24 Thiamine [Vitamin B-1] 100 mg PO DAILY@1700 11/13/22 03/18/24 Ibandronate Sodium [Boniva] 150 mg PO Q30D 05/03/23 03/18/24 Melatonin 5 mg PO HS PRN 05/03/23 03/18/24 lisinopriL [Zestril] 20 mg PO DAILY 05/03/23 03/18/24 Acetaminophen [Tylenol Arthritis] 650 mg PO Q4HR PRN 10/24/23 03/18/24 amLODIPine [Norvasc] 5 mg PO DAILY 12/12/23 03/18/24 clonazePAM [KlonoPIN ODT] 0.25 mg PO HS 12/12/23 03/18/24 OLANZapine [ZyPREXA] 15 mg PO HS 01/22/24 03/18/24 Folic Acid 1 mg PO DAILY@1700 03/18/24 03/18/24 Venlafaxine HCl ER [Effexor Xr] 150 mg PO DAILY 03/18/24 03/18/24 hydrOXYzine HCL [Atarax] 25 mg PO BID 03/18/24 03/18/24 lamoTRIgine [LaMICtal] 150 mg PO BID 03/18/24 03/18/24 Previous Rx's Medication Instructions Recorded Albuterol Inhaler [Ventolin Hfa 2 puff INHALATION RT-QID PRN #1 11/17/22 Inhaler] each Albuterol Nebulized [Ventolin 5 mg INHALATION RT-QID PRN #60 each 01/24/24 Nebulized] Naproxen [Naprosyn] 500 mg PO BID 30 Days #60 tablet 02/16/24 HYDROcodone/APAP 5-325MG [Empire 1 tab PO Q6HR PRN 3 Days #12 tab 03/15/24 5-325] Allergies Allergy/AdvReac Type Severity Reaction Status Date / Time codeine Allergy Unknown Verified 03/18/24 14:48 Childhood Penicillins Allergy Rash/Hives Verified 03/18/24 14:48 Sulfa (Sulfonamide Allergy Rash/Hives Verified 03/18/24 14:48 Antibiotics) Review of Systems ROS Statement: Those systems with pertinent positive or pertinent negative responses have been documented in the HPI. ROS Other: All systems not noted in ROS Statement are negative. Past Medical History Past Medical History: Asthma, Heart Failure, COPD, Fibromyalgia, GERD/Reflux, Hypertension, Osteoarthritis (OA), Pneumonia, Pulmonary Embolus (PE), Skin Disorder, Thyroid Disorder Additional Past Medical History / Comment(s): Spinal Stenosis, Cervical disc disease/stenosis, scoliosis, recently having numbness/tingling L side of face/neck, recently saw fermentation operator for L hemidiaphragmatic elevation-pt states she was told this was probably genetic, recently bronchitis and past bronchitis, pt states recent med change (water pill) d/t electrolyte problem/kidney function being affected, pt states she has had pulmonary emboli, past bilateral lower extremity cellulitis, edema lower extremities, IBS, hemorrhoids, benign colon polyps, sinus problems, UTIs, bacteremia/sepsis, cardiac murmur, past L ankle and L wrist fractures. History of Any Multi-Drug Resistant Organisms: None Reported Past Surgical History: Bariatric Surgery, Section, Cholecystectomy, Hysterectomy, Tonsillectomy Additional Past Surgical History / Comment(s): EGD, colonoscopies, gastric bypass, surgery for deviated septum, left cataract removal (having laser procedure on that eye 11/24/23) Past Anesthesia/Blood Transfusion Reactions: Previous Problems w/ Anesthesia Additional Past Anesthesia/Blood Transfusion Reaction / Comment(s): itching after hysterectomy, some kind of breathing problem after gastric bypass-not sure what happened Past Psychological History: Anxiety, Bipolar, Depression, Panic Disorder Smoking Status: Current every day smoker Past Alcohol Use History: None Reported Past Drug Use History: Marijuana - Past Family History Mother Family Medical History: Congestive Heart Failure (CHF), Hypertension Father History Unknown: Yes Additional Family Medical History / Comment(s): Father at the age of 45 yrs d/t having had rheumatic fever as a child and heart valve disease. General Exam Limitations: no limitations General appearance: alert, in no apparent distress, anxious Head exam: Present: atraumatic, normocephalic, normal inspection Neck exam: Present: normal inspection. Absent: tenderness, meningismus, lymphadenopathy Respiratory exam: Present: rhonchi (Bilateral throughout). Absent: stridor Cardiovascular Exam: Present: regular rate, normal rhythm, normal heart sounds. Absent: systolic murmur, diastolic murmur, rubs, gallop, clicks GI/Abdominal exam: Present: soft, normal bowel sounds. Absent: distended, tenderness, guarding, rebound, rigid Extremities exam: Present: normal inspection, full ROM, normal capillary refill, other (2+ bilateral DP pulse. Bilateral lower extremity reflexes intact. Strength is equal bilaterally. Sensation intact.). Absent: tenderness, pedal edema, joint swelling, calf tenderness Back exam: Present: normal inspection Neurological exam: Present: alert, oriented X3, CN II-XII intact Psychiatric exam: Present: anxious Skin exam: Present: warm, dry, intact, normal color. Absent: rash Course Vital Signs 03/18/24 03/18/24 03/18/24 09:37 12:38 14:21 Temperature 98 F Pulse Rate 95 77 78 Respiratory 18 18 18 Rate Blood Pressure 141/80 160/73 146/72 O2 Sat by Pulse 88 L 92 L 92 L Oximetry - Reevaluation(s) Reevaluation #1: 03/18/24 13:39 Case discussed with [facility], , for admission. Medical Decision Making - Medical Decision Making Was pt. sent in by a medical professional or institution (, PA, INCUBATOR TENDER, urgent care, hospital, or assisted...) When possible be specific @ -No Did you speak to anyone other than the patient for history (EMS, parent, family, police, friend...)? What history was obtained from this source @ -No Did you review nursing and triage notes (agree or disagree)? Why? @ -I reviewed and agree with nursing and triage notes Were old charts reviewed (outside hosp., previous admission, EMS record, old EKG, old radiological studies, urgent care reports/EKG's, assisted records)? Report findings @ -I reviewed ER visit from 03-13-2024. CT lumbar spine performed at that time showing severe spinal canal stenosis. Patient was discharged with pain management. Patient seen on 03-15-2024 had laboratory studies completed. Leukocytosis 12.8 with a left shift. CT abdomen pelvis performed with no evidence of acute intra-abdominal process. Patient discharged. Patient reev aluated on 03-17-2024 for similar complaint. Laboratory studies obtained at that time showing a leukocytosis of 17.3 with a left shift. Hyponatremia at 125. Symptomatic control in the ER. Patient discharged. Differential Diagnosis (chest pain, altered mental status, abdominal pain women, abdominal pain men, vaginal bleeding, weakness, fever, dyspnea, syncope, headache, dizziness, GI bleed, back pain, seizure, CVA, palpatations, mental health, musculoskeletal)? @ -Differential Back Pain:Strain, zoster, cauda equina syndrome, epidural abscess, vertebral osteomyelitis, discitis, fracture, subluxation, disc herniation, DJD, spinal stenosis, dissection, AAA, pancreatitis, peptic ulcer disease, pyelonephritis, kidney stone, this is not meant to be an all-inclusive list. EKG interpreted by me (3pts min.). @ -As above X-rays interpreted by me (1pt min.). @ -Chest x-ray showing a small right and minimal left pleural effusion. CT interpreted by me (1pt min.). @ -None done U/S interpreted by me (1pt. min.). @ -None done What testing was considered but not performed or refused? (CT, X-rays, U/S, labs)? Why? @ -None What meds were considered but not given or refused? Why? @ -None Did you discuss the management of the patient with other professionals (professionals i.e. , PA, INCUBATOR TENDER, lab, RT, psych nurse, psychosocial rehabilitation counselor, medication specialist, teacher, crime prevention police officer, case assistant)? Give summary @ -[facility] Was smoking cessation discussed for >3mins.? @ -I discussed smoking cessation for greater than 3 minutes. The risk of smoking were discussed with the patient including but not limited to risks of cancer, stroke, coronary artery disease and COPD. Also discussed with patient were multiple methods of quitting smoking. Lastly we discussed the financial cost of smoking. Was critical care preformed (if so, how long)? @ -No Were there social determinants of health that impacted care today? How? (Homelessness, low income, unemployed, alcoholism, drug addiction, transportation, low edu. Level, literacy, decrease access to med. care, group home, r ehab)? @ -No Was there de-escalation of care discussed even if they declined (Discuss DNR or withdrawal of care, Hospice)? DNR status @ -No What co-morbidities impacted this encounter? (DM, HTN, Smoking, COPD, CAD, Cancer, CVA, ARF, Chemo, Hep., AIDS, mental health diagnosis, sleep apnea, morbid obesity)? @ -Anxiety, heart failure, Back pain, hypertension, COPD Was patient admitted / discharged? Hospital course, mention meds given and route, prescriptions, significant lab abnormalities, going to OR and other pertinent info. @ -Admitted. 68-year-old female presented to the ER with a chief complaint of back pain and numbness. History and physical exam completed. Vitals stable. Patient in no signs of acute distress but is extremely anxious on exam. Bi lateral upper and lower extremities neurovascular intact. No focal bony tenderness to spine. Patient freely moving all extremities. No red flag back pain symptoms indicative cauda equina syndrome. Laboratory studies obtained today showing a leukocytosis of 18.4 with a left shift which may be elevated due to patient's nicotine dependence. Hyponatremia 129 mild transaminitis which appears chronic (AST 43, ALT 49). Urine analysis unremarkable. Cephid negative. Chest x-ray showing a small right and minimal left pleural effusion. Symptomatic treatment in the ER. Admission considered for further evaluation of pleural effusion and leukocytosis. Admission also was considered for intractable pain due to spinal canal stenosis. Admission discussed with [facility], Dr. Woods, who accepts. Orthopedics, pulmonology and infectious disease on consult. Rocephin started. Upon reevaluation, patient sleeping in exam room in no signs of acute distress. Results discussed with patient, all questions an swered. Patient agreeable for admission. Patient admitted in stable condition for further evaluation and treatment. Case discussed with the attending, Dr. Small. Undiagnosed new problem with uncertain prognosis? @ -No Drug Therapy requiring intensive monitoring for toxicity (Heparin, Nitro, Insulin, Cardizem)? @ -No Were any procedures done? @ -No Diagnosis/symptom? @ -Leukocytosis/pleural effusion/spinal canal stenosis/nicotine dependence/anxiety Acute, or Chronic, or Acute on Chronic? @ -Acute Uncomplicated (without systemic symptoms) or Complicated (systemic symptoms)? @ -Complicated Side effects of treatment? @ -No Exacerbation, Progression, or Severe Exacerbation? @ -No Poses a threat to life or bodily function? How? (Chest pain, [place], [place], pneumonia, PE, COPD, DKA, ARF, appy, cholecystitis, CVA, Diverticulitis, Homicidal, Suicidal, threat to staff... and all critical care pts) @ -Possibly - Lab Data Result diagrams: 03/18/24 11:05 03/18/24 11:05 Lab Results 03/18/24 03/18/24 03/18/24 Range/Units 11:05 11:05 12:32 WBC 18.4 H (3.8-10.6) k/uL RBC 4.00 (3.80-5.40) m/uL Hgb 12.5 (11.4-16.0) gm/dL Hct 38.1 (34.0-46.0) % MCV 95.3 (80.0-100.0) fL MCH 31.3 (25.0-35.0) pg MCHC 32.9 (31.0-37.0) g/dL RDW 13.7 (11.5-15.5) % Plt Count 251 (150-450) k/uL MPV 8.5 Neutrophils % 84 % Lymphocytes % 9 % Monocytes % 5 % Eosinophils % 1 % Basophils % 0 % Neutrophils # 15.4 H (1.3-7.7) k/uL Lymphocytes # 1.7 (1.0-4.8) k/uL Monocytes # 1.0 (0-1.0) k/uL Eosinophils # 0.1 (0-0.7) k/uL Basophils # 0.0 (0-0.2) k/uL Sodium 129 L (137-145) mmol/L Potassium 4.3 (3.5-5.1) mmol/L Chloride 98 (98-107) mmol/L Carbon Dioxide 28 (22-30) mmol/L Anion Gap 3 mmol/L BUN 12 (7-17) mg/dL Creatinine 0.46 L (0.52-1.04) mg/dL Est GFR (CKD-EPI)AfAm >90 (>60 ml/min/1.73 sqM) Est GFR (CKD-EPI)NonAf >90 (>60 ml/min/1.73 sqM) Glucose 83 (74-99) mg/dL Calcium 9.3 (8.4-10.2) mg/dL Total Bilirubin 0.9 (0.2-1.3) mg/dL AST 43 H (14-36) U/L ALT 49 H (4-34) U/L Alkaline Phosphatase 70 (38-126) U/L Total Protein 5.6 L (6.3-8.2) g/dL Albumin 3.5 (3.5-5.0) g/dL Urine Color Colorless Urine Appearance Clear (Clear) Urine pH 5.5 (5.0-8.0) Ur Specific [place] 1.008 (1.001-1.035) Urine Protein Negative (Negative) Urine Glucose (UA) Negative (Negative) Urine Ketones Negative (Negative) Urine Blood Negative (Negative) Urine Nitrite Negative (Negative) Urine Bilirubin Negative (Negative) Urine Urobilinogen <2.0 (<2.0) mg/dL Ur Leukocyte Esterase Negative (Negative) Influenza Type A (PCR) (Not Detectd) Influenza Type B (PCR) (Not Detectd) RSV (PCR) (Not Detectd) SARS-CoV-2 (PCR) (Not Detectd) 03/18/24 Range/Units 12:32 WBC (3.8-10.6) k/uL RBC (3.80-5.40) m/uL Hgb (11.4-16.0) gm/dL Hct (34.0-46.0) % MCV (80.0-100.0) fL MCH (25.0-35.0) pg MCHC (31.0-37.0) g/dL RDW (11.5-15.5) % Plt Count (150-450) k/uL MPV Neutrophils % % Lymphocytes % % Monocytes % % Eosinophils % % Basophils % % Neutrophils # (1.3-7.7) k/uL Lymphocytes # (1.0-4.8) k/uL Monocytes # (0-1.0) k/uL Eosinophils # (0-0.7) k/uL Basophils # (0-0.2) k/uL Sodium (137-145) mmol/L Potassium (3.5-5.1) mmol/L Chloride (98-107) mmol/L Carbon Dioxide (22-30) mmol/L Anion Gap mmol/L BUN (7-17) mg/dL Creatinine (0.52-1.04) mg/dL Est GFR (CKD-EPI)AfAm (>60 ml/min/1.73 sqM) Est GFR (CKD-EPI)NonAf (>60 ml/min/1.73 sqM) Glucose (74-99) mg/dL Calcium (8.4-10.2) mg/dL Total Bilirubin (0.2-1.3) mg/dL AST (14-36) U/L ALT (4-34) U/L Alkaline Phosphatase (38-126) U/L Total Protein (6.3-8.2) g/dL Albumin (3.5-5.0) g/dL Urine Color Urine Appearance (Clear) Urine pH (5.0-8.0) Ur Specific [place] (1.001-1.035) Urine Protein (Negative) Urine Glucose (UA) (Negative) Urine Ketones (Negative) Urine Blood (Negative) Urine Nitrite (Negative) Urine Bilirubin (Negative) Urine Urobilinogen (<2.0) mg/dL Ur Leukocyte Esterase (Negative) Influenza Type A (PCR) Not Detected (Not Detectd) Influenza Type B (PCR) Not Detected (Not Detectd) RSV (PCR) Not Detected (Not Detectd) SARS-CoV-2 (PCR) Not Detected (Not Detectd) - EKG Data -: EKG Interpreted by [place] EKG Comments: EKG taken at 9: 49 showing a sinus rhythm with complete right bundle branch block. No acute ST segment or T wave abnormalities. Ventricular rate 82, PA interval 160, QRS duration 118, QT/QTc 353/391. - Radiology Data Radiology results: report reviewed, image reviewed Disposition Clinical Impression: Pleural effusion, Neutrophilic leukocytosis, Spinal stenosis, Acute anxiety, Hyponatremia Disposition: ADMITTED IP TO THIS [facility] Condition: Stable Time of Disposition: 13:42
[2024-03-18 11:30] LABS: ALT 49 U/L (4-34); AST 43 U/L (14-36); African American GFR (CKD) >90 (>60 ml/min/1.73 sqM); Albumin 3.5 g/dL (3.5-5.0); Alkaline Phosphatase 70 U/L (38-126); Anion Gap 3 mmol/L; Blood Urea Nitrogen 12 mg/dL (7-17); Calcium 9.3 mg/dL (8.4-10.2); Carbon Dioxide 28 mmol/L (22-30); Chloride 98 mmol/L (98-107); Glucose 83 mg/dL (74-99); Non-African American GFR(CKD) >90 (>60 ml/min/1.73 sqM); Potassium 4.3 mmol/L (3.5-5.1); Sodium 129 mmol/L (137-145); Total Bilirubin 0.9 mg/dL (0.2-1.3); Total Protein 5.6 g/dL (6.3-8.2)
[2024-03-18 11:52] LABS: Basophils % (A) 0 %; Eosinophils # (A) 0.1 k/uL (0-0.7); Eosinophils % (A) 1 %; HCT 38.1 % (34.0-46.0); HGB 12.5 gm/dL (11.4-16.0); Lymphocytes # (A) 1.7 k/uL (1.0-4.8); Lymphocytes % (A) 9 %; MCH 31.3 pg (25.0-35.0); MCHC 32.9 g/dL (31.0-37.0); MCV 95.3 fL (80.0-100.0); Mean Platelet Volume 8.5; Monocytes % (A) 5 %; Neutrophils # (A) 15.4 k/uL (1.3-7.7); Neutrophils % (A) 84 %; Platelet Count 251 k/uL (150-450); RDW 13.7 % (11.5-15.5); WBC 18.4 k/uL (3.8-10.6)
[2024-03-18 12:46] LABS: Appearance,Urine Clear (Clear); Bilirubin,Urine Negative (Negative); Blood,Urine Negative (Negative); Color,Urine Colorless; Glucose,Urine (UA) Negative (Negative); Ketones,Urine Negative (Negative); Leukocyte Esterase,Urine Negative (Negative); Nitrite,Urine Negative (Negative); PH, Urine 5.5 (5.0-8.0); Protein,Urine Negative (Negative); Specific Gravity,Urine 1.008 (1.001-1.035); Urobilinogen,Urine <2.0 mg/dL (<2.0)
--- NOTE | 2024-03-18 12:58 | XR ---
EXAMINATION TYPE: XR chest 2V DATE OF EXAM: 03/18/2024 COMPARISON: 03/13/2024 INDICATION: Left leg pain numbness and anxiety TECHNIQUE: Frontal and lateral views of the chest are obtained. FINDINGS: The heart size is normal. The pulmonary vasculature is somewhat prominent. All scattered increased lung markings are present. Some linear opacities in the right midlung may be some fluid within the minor fissure. Small right pleural effusion is present. Small left pleural effu jeanne may be present.. IMPRESSION: 1. Clinical consideration for bibasilar atelectasis. 2. Early volume overload could be considered. 3. Small right and minimal left pleural effusions.
[2024-03-18] MEDS ORDERED: NALOXONE 0.4 MG/ML 1 ML VIAL IV PRN (13:37)
[2024-03-18] MEDS: KETOROLAC 15 MG/ML 1 ML VIAL IVP PRN (14:17)
[2024-03-18] MEDS: LORazepam 0.5 MG TAB PO PRN (14:17)
[2024-03-18] MEDS ORDERED: ACETAMINOPHEN TAB 325 MG TAB PO PRN (16:42)
[2024-03-18] MEDS ORDERED: ALBUTEROL HFA INHALER INHALATION PRN (16:42)
[2024-03-18] MEDS: FOLIC ACID 1 MG TAB PO SCH (17:56)
[2024-03-18] MEDS: HYDROcodone/APAP 5-325MG 1 EACH TAB PO PRN (17:56)
[2024-03-18] MEDS: LORazepam 0.5 MG TAB PO STA (17:56)
[2024-03-18] MEDS: SYMBICORT 160-4.5 MCG INHALER INHALATION SCH (19:43)
[2024-03-18] MEDS: HEPARIN SODIUM,PORCINE 5,000 UNIT/ML 1 ML VIAL SQ SCH (22:41)
[2024-03-18] MEDS: FAMOTIDINE 20 MG TAB PO SCH (22:41)
[2024-03-18] MEDS: MONTELUKAST 10 MG TAB PO SCH (22:42)
[2024-03-18] MEDS: lamoTRIgine 100 MG TAB PO SCH (22:42)
[2024-03-18] MEDS: METOPROLOL TARTRATE 25 MG TAB PO SCH (22:53)
[2024-03-18] MEDS: DIVALPROEX ER 250 MG TAB.ER.24H PO SCH (23:33)
[2024-03-18] MEDS: OLANZapine 7.5 MG TAB PO SCH (23:33)
[2024-03-18] MEDS: hydrOXYzine HCL 25 MG TAB PO SCH (23:33)
[2024-03-19] MEDS: amLODIPine 5 MG TAB PO SCH (07:59)
[2024-03-19] MEDS: LEVOTHYROXINE 75 MCG TAB PO SCH (07:59)
[2024-03-19] MEDS: lisinopriL 20 MG TAB PO SCH (07:59)
[2024-03-19] MEDS: FERROUS SULFATE 325 MG TAB PO SCH (07:59)
--- NOTE | 2024-03-19 10:11 | P.CNPUL ---
History of Present Illness Consult date: 03/19/24 Requesting physician: Dominguez Woods Reason for consult: abnormal CXR/CT Chief complaint: Back pain and numbness History of present illness: This is a 68-year-old female patient with a known history of fibromyalgia, oxygen dependent chronic obstructive pulmonary disease, hypertension, hypothyroi dism, chronic back pain. She has been in the emergency room 3 times this month with complaints of chronic back pain with tingling and numbness and weakness of the lower extremities not improved with [place] at home. CT scan of the lumbar spine on 03/13/2024 revealed severe scoliosis with severe degenerative disc disease at all levels. CT scan of the abdomen and pelvis on 03/15/2024 revealed no evidence of acute abdominal pelvic process. She came into the emergency room again yesterday 03/18/2024 with similar complaints. A chest x-ray revealed bibasilar atelectasis and early volume overload with a small right and minimal left pleural effusions. We were consulted for the same. White count 18.4. Hemoglobin 12.5. Platelets 251. Sodium 129. Potassium 4.3. Bicarb 28. BUN 12. Creatinine 0.46. AST 43. ALT 49. Urinalysis clean. Viral screen negative. She is seen today in consultation on the regular medical floor. She is quite anxious and teary-eyed. She states she is confused as to why she is here. She has ongoing complaints of chronic back pain tingling and numbness of the lower extremities. She is maintaining good O2 saturations in the 90s on 3 L/min per nasal cannula. She is normally on 4 L at home. She is afebrile. Hemodynamically stable. No cough or congestion. No fever or chills. Review of Systems REVIEW OF SYSTEMS: CONSTITUTIONAL: Denies any recent significant weight loss or weight gain. EYES: Denies change in vision. EARS, NOSE, MOUTH, THROAT: Denies headaches, denies sore throat. CARDIOVASCULAR: Denies chest pain, palpitations or syncopal episodes. RESPIRATORY: Denies shortness of breath, cough, congestion or hemoptysis. GASTROINTESTINAL: Denies change in appetite, denies abdominal pain GENITOURINARY: Denies hematuria, denies infections. MUSKULOSKELETAL: Positive for back pain with tingling and numbness of the lower extremities. INTEGUMENTARY: Denies rash, denies eczema. NEUROLOGICAL: Denies recent memory loss, no recent seizure activity. PSYCHIATRIC: Positive for anxiety and depression. HEMATOLOGIC/LYMPHATIC: Denies anemia, denies enlarged lymph nodes. Past Medical History Past Medical History: Asthma, Heart Failure, COPD, Fibromyalgia, GERD/Reflux, Hypertension, Osteoarthritis (OA), Pneumonia, Pulmonary Embolus (PE), Skin Disorder, Thyroid Disorder Additional Past Medical History / Comment(s): Spinal Stenosis, Cervical disc disease/stenosis, scoliosis, recently having numbness/tingling L side of face/neck, recently saw paper stacker for L hemidiaphragmatic elevation-pt states she was told this was probably genetic, recently bronchitis and past bronchitis, pt states recent med change (water pill) d/t electrolyte problem/kidney function being affected, pt states she has had pulmonary emboli, past bilateral lower extremity cellulitis, edema lower extremities, IBS, hemorrhoids, benign colon polyps, sinus problems, UTIs, bacteremia/sepsis, cardiac murmur, past L ankle and L wrist fractures. History of Any Multi-Drug Resistant Organisms: None Reported Past Surgical History: Bariatric Surgery, Section, Cholecystectomy, Hysterectomy, Tonsillectomy Additional Past Surgical History / Comment(s): EGD, colonoscopies, gastric bypass, surgery for deviated septum, left cataract removal (having laser procedure on that eye 11/24/23) Past Anesthesia/Blood Transfusion Reactions: Previous Problems w/ Anesthesia Additional Past Anesthesia/Blood Transfusion Reaction / Comment(s): itching after hysterectomy, some kind of breathing problem after gastric bypass-not sure what happened Past Psychological History: Anxiety, Bipolar, Depression, Panic Disorder Smoking Status: Current every day smoker Past Alcohol Use History: None Reported Past Drug Use History: Marijuana - Past Family History Mother Family Medical History: Congestive Heart Failure (CHF), Hypertension Father History Unknown: Yes Additional Family Medical History / Comment(s): Father at the age of 45 yrs d/t having had rheumatic fever as a child and heart valve disease. Medications and Allergies Home Medications Medication Instructions Recorded Confirmed Type Montelukast [Singulair] 10 mg PO HS 12/17/03/18/24 History Levothyroxine Sodium [Synthroid] 150 mcg PO DAILY 03/29/20 03/18/24 History Budesonide/Formoterol Fumarate 2 puff INHALATION RT-BID 06/12/21 03/18/24 History [Symbicort 160-4.5 Mcg Inhaler] Famotidine [Pepcid] 20 mg PO BID 09/03/21 03/18/24 History Divalproex ER [Depakote ER] 250 mg PO HS 10/07/21 03/18/24 History Tamsulosin [Flomax] 0.4 mg PO DAILY@1200 10/26/21 03/18/24 History Ferrous Sulfate [Iron (65 MG 325 mg PO DAILY 11/13/22 03/18/24 History Elemental)] Ipratropium-Albuterol Nebulize 3 ml INHALATION RT-QID PRN 11/13/22 03/18/24 History [Duoneb 0.5 mg-3 mg/3 ml Soln] Metoprolol Tartrate [Lopressor] 25 mg PO BID 11/13/22 03/18/24 History Thiamine [Vitamin B-1] 100 mg PO DAILY@1700 11/13/22 03/18/24 History Albuterol Inhaler [Ventolin Hfa 2 puff INHALATION RT-QID PRN #1 11/17/22 03/18/24 Rx Inhaler] each Ibandronate Sodium [Boniva] 150 mg PO Q30D 05/03/23 03/18/24 History Melatonin 5 mg PO HS PRN 05/03/23 03/18/24 History lisinopriL [Zestril] 20 mg PO DAILY 05/03/23 03/18/24 History Acetaminophen [Tylenol Arthritis] 650 mg PO Q4HR PRN 10/24/23 03/18/24 History amLODIPine [Norvasc] 5 mg PO DAILY 12/12/23 03/18/24 History clonazePAM [KlonoPIN ODT] 0.25 mg PO HS 12/12/23 03/18/24 History OLANZapine [ZyPREXA] 15 mg PO HS 01/22/24 03/18/24 History Albuterol Nebulized [Ventolin 5 mg INHALATION RT-QID PRN #60 each 01/24/24 03/18/24 Rx Nebulized] Naproxen [Naprosyn] 500 mg PO BID 30 Days #60 tablet 02/16/24 03/18/24 Rx HYDROcodone/APAP 5-325MG [[place] 1 tab PO Q6HR PRN 3 Days #12 tab 03/15/24 03/18/24 Rx 5-325] Folic Acid 1 mg PO DAILY@1700 03/18/24 03/18/24 History Venlafaxine HCl ER [Effexor Xr] 150 mg PO DAILY 03/18/24 03/18/24 History hydrOXYzine HCL [Atarax] 25 mg PO BID 03/18/24 03/18/24 History lamoTRIgine [LaMICtal] 150 mg PO BID 03/18/24 03/18/24 History Allergies Allergy/AdvReac Type Severity Reaction Status Date / Time codeine Allergy Unknown Verified 03/18/24 14:48 Childhood Penicillins Allergy Rash/Hives Verified 03/18/24 14:48 Sulfa (Sulfonamide Allergy Rash/Hives Verified 03/18/24 14:48 Antibiotics) Physical Exam Vitals: Vital Signs Temp Pulse Pulse Resp BP BP BP 03/19/24 07:49 98.3 F 68 18 151/67 03/19/24 01:52 97.6 F 59 L 20 151/80 03/18/24 19:46 99.1 F 80 16 128/66 03/18/24 15:56 98.4 F 84 18 170/71 03/18/24 14:21 78 18 146/72 03/18/24 12:38 77 18 160/73 Pulse Ox 03/19/24 07:49 94 L 03/19/24 01:52 98 03/18/24 19:46 93 L 03/18/24 15:56 92 L 03/18/24 14:21 92 L 03/18/24 12:38 92 L Intake and Output 03/18/24 03/19/24 03/19/24 22:59 06:59 14:59 Other: Voiding Method External Catheter # Voids 1 1 Weight 72.121 kg GENERAL EXAM: Alert, anxious, teary-eyed 68-year-old female, on 3 L nasal cannula, in no apparent distress. HEAD: Normocephalic. EYES: Normal reaction of pupils, equal size. NOSE: Clear with pink turbinates. THROAT: No erythema or exudates. NECK: No masses, no JVD. CHEST: No chest wall deformity. LUNGS: Equal air entry with no crackles, wheeze, rhonchi or dullness. CVS: S1 and S2 normal with no audible murmur, regular rhythm. ABDOMEN: No hepatosplenomegaly, normal bowel sounds, no guarding or rigidity. SPINE: No scoliosis or deformity SKIN: No rashes CENTRAL NERVOUS SYSTEM: No focal deficits, tone is normal in all 4 extremities. EXTREMITIES: There is no peripheral edema. No clubbing, no cyanosis. Peripheral pulses are intact. Results - Laboratory Findings CBC and BMP: 03/18/24 11:05 03/18/24 11:05 Abnormal lab findings: Abnormal Labs 03/18/24 03/18/24 11:05 11:05 WBC 18.4 H Neutrophils # 15.4 H Sodium 129 L Creatinine 0.46 L AST 43 H ALT 49 H Total Protein 5.6 L - Diagnostic Findings Chest x-ray: image reviewed Assessment and Plan Assessment: Acute on chronic back pain with paresthesias of the lower extremities Chronic hypoxic respiratory failure secondary to chronic obstructive pulmonary disease Hyponatremia Leukocytosis Bipolar disorder with anxiety Fibromyalgia History of chronic tobacco dependence Hypothyroidism Hypertension Marijuana use Plan: The patient was seen and evaluated Chest x-ray, labs and medications reviewed Continue Symbicort, albuterol, Singulair Check a procalcitonin Continue ceftriaxone for now Check a proBNP Heparin for DVT prophylaxis Orthopedic consult pending We will continue to follow and make further recommendations based on her clinical status I have personally seen and examined the patient, performed the documentation and the assessment and plan as written. Number of minutes spent on the visit: 20.
[2024-03-19 11:13] LABS: Blood Urea Nitrogen 9.8 mg/dL (9.0-27.0); Calcium 8.4 mg/dL (8.7-10.3); Carbon Dioxide 25.8 mmol/L (21.6-31.8); Chloride 98 mmol/L (96-109); Glucose 74 mg/dL (70-110); Potassium 4.5 mmol/L (3.5-5.5); Sodium 132 mmol/L (135-145)
[2024-03-19] MEDS: LORazepam 1 MG TAB PO PRN (12:00)
--- NOTE | 2024-03-19 13:13 | P.CNOR ---
History of Present Illness - [facility] Consult date: 03/19/24 Consult reason: low back pain, neck pain History of present illness: Patient is a 68-year-old female who was admitted to [facility] due to significant low back pain and neck pain. Patient has been evaluated at [facility] many times over the last few months with very similar issues. She has been to this hospital for the last 4 days in the emergency room and been evaluated. She has had CAT scans of the abdomen and pelvis along with the lumbar spine. Patient was admitted to the hospital due to intractable pain. Patient was evaluated today at bedside, her was present at bedside. Patient is very anxious and emotional on exam today. Patient follows with Dr. Wheeler in the primary care setting, she also does see a psychiatrist. Patient has been evaluated by pulmonology, she has a history of COPD. Patient has been evaluated at both [facility] and [facility] for her neck and back pain. She has received a couple different injections via the pain management doctors at [facility] and also has had a few pain procedures by the pain management group at [facility]. Patient is a relatively poor historian has a hard time remembering the exact dates, her does help with this. She states that the injections that she has had from both pain providers have provided minimal relief. She has a known history of severe scoliosis and lumbar degenerative changes. She was evaluated by the spine specialty from the [facility] while she was in the hospital in January 2024, at that point did demonstrate some myelopathic changes in the upper extremities, she denied further imaging test of the neck and back at that time. Patient describes to me today that she is having constant numbness and tingling in the bilateral upper and lower extremities. She has had a couple instances of loss of bladder control with the most recent one being last week. She notes numbness and tingling in the genital region, again this not being constant. She feels that she has a lot of pressure buildup in the back of her neck and into her head. She denies any loss of bowel function at this time. She normally utilizes a walker for ambulation. On exam in bed she is able to get to the side of the bed, she moves all extremities with minimal difficulties. I am unable to elect any myelopathic signs on both the upper or lower extremities. When discussing the patient's history with the , she states in 2021 she spent a lot of time in and out of the hospital and rehab due to pneumonia and chronic UTIs which did require IV antibiotics. Review of Systems Constitutional: Reports as per HPI Past Medical History Past Medical History: Asthma, Heart Failure, COPD, Fibromyalgia, GERD/Reflux, Hypertension, Osteoarthritis (OA), Pneumonia, Pulmonary Embolus (PE), Skin Disorder, Thyroid Disorder Additional Past Medical History / Comment(s): Spinal Stenosis, Cervical disc disease/stenosis, scoliosis, recently having numbness/tingling L side of face/neck, recently saw disintegrator for L hemidiaphragmatic elevation-pt states she was told this was probably genetic, recently bronchitis and past bronchitis, pt states recent med change (water pill) d/t electrolyte problem/kidney function being affected, pt states she has had pulmonary emboli, past bilateral lower extremity cellulitis, edema lower extremities, IBS, he morrhoids, benign colon polyps, sinus problems, UTIs, bacteremia/sepsis, cardiac murmur, past L ankle and L wrist fractures. History of Any Multi-Drug Resistant Organisms: None Reported Past Surgical History: Bariatric Surgery, Section, Cholecystectomy, Hysterectomy, Tonsillectomy Additional Past Surgical History / Comment(s): EGD, colonoscopies, gastric bypass, surgery for deviated septum, left cataract removal (having laser procedure on that eye 11/24/23) Past Anesthesia/Blood Transfusion Reactions: Previous Problems w/ Anesthesia Additional Past Anesthesia/Blood Transfusion Reaction / Comm: itching after hysterectomy, some kind of breathing problem after gastric bypass-not sure what happened Past Psychological History: Anxiety, Bipolar, Depression, Panic Disorder Smoking Status: Current every day smoker Past Alcohol Use History: None Reported Past Drug Use History: Marijuana - Past Family History Mother Family Medical History: Congestive Heart Failure (CHF), Hypertension Father History Unknown: Yes Additional Family Medical History / Comment(s): Father at the age of 45 yrs d/t having had rheumatic fever as a child and heart valve disease. Medications and Allergies Home Medications Medication Instructions Recorded Confirmed Type Montelukast [Singulair] 10 mg PO HS 12/17/03/18/24 History Levothyroxine Sodium [Synthroid] 150 mcg PO DAILY 03/29/20 03/18/24 History Budesonide/Formoterol Fumarate 2 puff INHALATION RT-BID 06/12/21 03/18/24 History [Symbicort 160-4.5 Mcg Inhaler] Famotidine [Pepcid] 20 mg PO BID 09/03/21 03/18/24 History Divalproex ER [Depakote ER] 250 mg PO HS 10/07/21 03/18/24 History Tamsulosin [Flomax] 0.4 mg PO DAILY@1200 10/26/21 03/18/24 History Ferrous Sulfate [Iron (65 MG 325 mg PO DAILY 11/13/22 03/18/24 History Elemental)] Ipratropium-Albuterol Nebulize 3 ml INHALATION RT-QID PRN 11/13/22 03/18/24 History [Duoneb 0.5 mg-3 mg/3 ml Soln] Metoprolol Tartrate [Lopressor] 25 mg PO BID 11/13/22 03/18/24 History Thiamine [Vitamin B-1] 100 mg PO DAILY@1700 11/13/22 03/18/24 History Albuterol Inhaler [Ventolin Hfa 2 puff INHALATION RT-QID PRN #1 11/17/22 03/18/24 Rx Inhaler] each Ibandronate Sodium [Boniva] 150 mg PO Q30D 05/03/23 03/18/24 History Melatonin 5 mg PO HS PRN 05/03/23 03/18/24 History lisinopriL [Zestril] 20 mg PO DAILY 05/03/23 03/18/24 History Acetaminophen [Tylenol Arthritis] 650 mg PO Q4HR PRN 10/24/23 03/18/24 History amLODIPine [Norvasc] 5 mg PO DAILY 12/12/23 03/18/24 History clonazePAM [KlonoPIN ODT] 0.25 mg PO HS 12/12/23 03/18/24 History OLANZapine [ZyPREXA] 15 mg PO HS 01/22/24 03/18/24 History Albuterol Nebulized [Ventolin 5 mg INHALATION RT-QID PRN #60 each 01/24/24 03/18/24 Rx Nebulized] Naproxen [Naprosyn] 500 mg PO BID 30 Days #60 tablet 02/16/24 03/18/24 Rx HYDROcodone/APAP 5-325MG [Cylinder 1 tab PO Q6HR PRN 3 Days #12 tab 03/15/24 03/18/24 Rx 5-325] Folic Acid 1 mg PO DAILY@1700 03/18/24 03/18/24 History Venlafaxine HCl ER [Effexor Xr] 150 mg PO DAILY 03/18/24 03/18/24 History hydrOXYzine HCL [Atarax] 25 mg PO BID 03/18/24 03/18/24 History lamoTRIgine [LaMICtal] 150 mg PO BID 03/18/24 03/18/24 History Allergies Allergy/AdvReac Type Severity Reaction Status Date / Time codeine Allergy Unknown Verified 03/18/24 14:48 Childhood Penicillins Allergy Rash/Hives Verified 03/18/24 14:48 Sulfa (Sulfonamide Allergy Rash/Hives Verified 03/18/24 14:48 Antibiotics) Physical Examination Gen: AOx3, NAD VSS stable at this time Integument: No open lesions, sores, areas of soft tissue swelling or erythema present throughout the cervical, thoracic or lumbar spine Palpation: Patient demonstrates generalized paraspinal pain in the cervical and lumbar region ROM: Full range of motion in all major muscle groups of the bilateral upper and lower extremities, no focal deficits are appreciated Sensory Exam: Senory exam to light touch is intact C5-T1 Senosry exam to light touch is intact L2-S1 Motor: 4+/5 strength appreciated the bilateral upper extremities with shoulder elevation, shoulder abduction, elbow extension, elbow flexion, wrist extension, wrist flexion, jewelry inspector 4+5 strength appreciated the bilateral lower extremities with hip flexion, knee extension, knee flexion, plantarflexion, dorsiflexion, EHL, FHL Reflexes: Negative Dallas's bilaterally Clonus bilaterally Special Test: Negative straight leg raise bilaterally Negative logroll maneuver bilaterally Results - Labs Labs: Abnormal Lab Results - Last 24 Hours (Table) 03/19/24 Range/Units 04:38 Sodium 132 L (135-145) mmol/L Creatinine 0.5 L (0.6-1.5) mg/dL Calcium 8.4 L (8.7-10.3) mg/dL H & H 03/18/24 Range/Units 11:05 Hgb 12.5 (11.4-16.0) gm/dL Hct 38.1 (34.0-46.0) % Result Diagrams: 03/18/24 11:05 03/19/24 04:38 Assessment and Plan Assessment: Chronic low back pain Chronic neck pain Bilateral upper and lower extremity paresthesias Scoliosis Multilevel lumbar spondylosis Multilevel lumbar central canal and neuroforaminal stenosis Leukocytosis Anxiety Other medical comorbidities Plan: Imaging: CT scan reports and images were reviewed from her ER visit on 03/13/2024. Severe scoliosis is noted throughout the lumbar spine. There is multilevel lumbar spondylosis present, this to include central canal and neuroforaminal stenosis most severe at L3-L4, L4-L5, L5-S1 Plan: I was able to discuss the case with my attending Dr. Lnidsay's and, this to include imaging test and and physical exam findings. No emergent orthopedic spine surgical intervention is recommended at this time. Patient has a very significant medical history and her anxiety at this time I feel is very uncontrolled. Consults have been placed for neurology for their recommendations Internal medicine recommendations appreciated Patient is not demonstrating any acute myelopathic signs at this time, she does have leukocytosis which seems to be worsening over her previous hospital visits. Infectious etiology is unclear at this time. Pending other medical specialty recommendations, we may consider further imaging of the spine, this to include MRIs with and without contrast cervical versus lumbar DVT prophylaxis per primary medical service Weight-bear as tolerated with walker Further recommendations to follow Time with Patient: Less than 30
--- NOTE | 2024-03-19 14:55 | P.PN ---
Subjective Progress Note Date: 03/19/24 Interval History: 88-year-old female with past medical history significant for asthma, CHF, also fibromyalgia, COPD, GERD, hypertension, history of PE, history of hypothyroidism, cervical stenosis who presented to ER with a complaint of back pain and numbness. Patient has been in the hospital previously for the similar complaints. Patient reported that she follows orthopedic as outpatient and has been told that she is not a surgical candidate for her degenerative disc disease. Patient reported that she has chronic back pain, radiating to L left lower extremity, sharp in nature, now progressively worsening throughout the week. Patient denied any new injuries or traumas. Patient also reported cr amping and numbness in tingling sensation in the epigastric area. Patient also reported that she is having pain in the upper back, neck, scalp, patient reported numbness rather than pain in those areas. Patient denied any saddle anesthesia, bowel or bladder incontinence. Patient denied any fever or chills. Patient is a poor historian, very anxious, tearful due to anxiety, did not seem to be in excruciating pain. Patient reported that she has COPD and wears 4 L oxygen at baseline. Vitals: Afebrile, pulse rate 77, respiratory rate 18, blood pressure 141/80, saturating 92% on 3 to 4 L. Labs: WBCs 18.4, hemoglobin 12.5, platelets 251. Sodium 129, potassium 4.3, creatinine 0.43, BUN 12, AST 43, ALT 49, normal bilirubin and alkaline phosphatase. UA unremarkable. 03/19--patient was seen and examined today. On 3 L baseline oxygen. Vital stable. Afebrile. Sodium improved to 132, creatinine stable 0.5. CBC report not available yet. Pulmonary and ID consulted and following. Patient currently on Rocephin. Awaiting orthopedic evaluation. Assessment and plan: Chronic back pain: Presented with worsening of chronic back pain, radiating to left lower extremity. Monitor with neurochecks. Pain control as needed Discussed safe opioid use with the patient Orthopedic consulted, follows Dr. Sotelo CT lumbar spine 03/13/2024 showed severe scoliosis with severe degenerative disc disease at all levels, disc herniation L3-4, L4-5 and L5-S1 with severe canal stenosis, multiple foraminal encroachment, bilateral renal calculi. Leukocytosis: Pleural effusion: COPD: Chronic hypoxic respiratory failure: 3 to 4 L oxygen at baseline Continue inhalers/bronchodilator protocol Started on Rocephin Infectious disease consulted Pulmonary consulted Hypertension: Resume home meds DVT prophylaxis Subcutaneous heparin Monitor vital signs and labs Continue telemetry monitoring Labs and medication were reviewed. Continue same treatment. Resume home medication. Further recommendations as per clinical course of the patient DVT prophylaxis: PHYSICAL EXAMINATION: GENERAL: The patient is A&O x3, NAD HEENT: EOMI, Sclerae anicteric, Moist Mucous membranes Neck: Supple, Non tender, No JVD PULMONARY: Equal breath souds B/L, No wheezing, No crackles. CARDIOVASCULAR: S1, S2 present. No murmurs, rubs, or gallops. ABDOMEN: Soft, nontender, nondistended, normoactive bowel sounds. No guarding or rebound tenderness. MUSCULOSKELETAL: No edema, No cyanosis. No clubbing. Normal ROM. Intact peripheral pulses. EXTREMITIES: No cyanosis, clubbing, or pedal edema. NEUROLOGICAL: CN 2-12 grossly intact. No FND Skin: No Rash REVIEW OF SYSTEMS: CONSTITUTIONAL: No fever or chills. CARDIOVASCULAR: No chest pain, palpitations or syncope. PULMONARY: No shortness of breath, no cough, sore throat. GASTROINTESTINAL: No nausea, vomiting, diarrhea, abdominal pain. : No Dysuria, urgency, frequency. Extremities: No edema. NEUROLOGICAL: No headaches, no weakness, or numbness Dictation was produced using [employer] dictation software. please excuse any grammatical, word or spelling errors. Objective - Vital Signs Vital signs: Vital Signs Temp 98.7 F 03/19/24 12:56 Pulse 65 03/19/24 12:56 Resp 18 03/19/24 12:56 BP 129/61 03/19/24 12:56 Pulse Ox 95 03/19/24 12:56 FiO2 Intake & Output 03/18/24 03/19/24 03/19/24 18:59 06:59 18:59 Weight 72.121 kg Other: Voiding Method External Catheter # Voids 1 1 - Labs CBC & Chem 7: 03/18/24 11:05 03/19/24 04:38 Labs: Abnormal Lab Results - Last 24 Hours (Table) 03/19/24 Range/Units 04:38 Sodium 132 L (135-145) mmol/L Creatinine 0.5 L (0.6-1.5) mg/dL Calcium 8.4 L (8.7-10.3) mg/dL
[2024-03-19] MEDS: ALBUTEROL NEBULIZED 2.5 MG/3 ML INHALATION PRN (15:22)
[2024-03-19] MEDS: NICOTINE 14MG/24HR PATCH TRANSDERM SCH (17:00)
--- NOTE | 2024-03-19 17:58 | P.CNNES ---
History of Present Illness Consult date: 03/19/24 Requesting physician: Patricio Hernandez Reason for Consult: Headaches History of Present Illness: Patient is a 68-year-old right-handed female came to the hospital yesterday at 9:35 AM for back pain and numbness. Neurology consulted for headaches. Patient has severe anxiety disorder, crying. Patient states that she has pain in her left hip, neck, lower back, head. She states that she feels "my brain is swelling". She says "I am scared, I want to go home". She states that she does not remember what happened. Patient states everything is hurting. Patient states I want something "to calm me down". Patient admits that she is feeling very agitated and is crying a lot. Patient states that it hurts to even sit. Patient complains of numbness of her legs. Patient states that for the last 2 weeks, she has been having pain in the back of her neck, and bilateral occipital region. She feels her scalp region in the occipital region is numb for last 2 weeks. She denies any head or neck injury. She denies any previous history of migraines or headaches, never gets headache. She continues to use repeat that she wants something to calm her nerves. She lives with her and has 1 daughter. Vital signs on arrival blood pressure 141/80, pulse rate 95 temperature 98.0. Patient's blood test shows WBC 18.4, hemoglobin 12.5 and normal platelets. Sodium 129 potassium 4.3, normal renal panel. Hepatic panel is elevated with AST 43, ALT 49. UA negative. Influenza, RSV and coronavirus PCR negative.EKG showed sinus rhythm with incomplete right bundle branch block. Chest x-ray showed clinical considered for bibasilar atelectasis. Early volume overload. Small right and minimal left pleural effusions. Patient's last TSH on 12/14/2023 is 3.23. Patient very much concerned about her left hip pain, and lower back pain. Orthopedic surgery is also on board. Patient had a CT of lumbar spine performed on 03/13/2024, which revealed severe scoliosis with severe degenerative disc disease at all levels. Disc herniation L3-4, L4-5 and L5-S1 with severe canal stenosis. Multilevel foraminal encroachment. Bilateral renal calculi. Right lower lobe atelectasis versus early infiltrate. Patient's previous CT of the lumbar spine from 11/01/2023 revealed a large central right paracentral disc herniation at T9-T10 may cause moderate spinal canal stenosis. Additional disc protrusions contribute to moderate to severe spinal canal stenosis from L3-S1 levels. Variable neural foraminal stenosis also seen. Patient had a 2D echo on 12/13/2023, revealed mild concentric LVH, with EF 55 to 60%. No obvious regional wall motion abnormalities. Mild left atrial dilation. No significant valvular dysfunction. Patient had a previous CT of the cervical spine performed 10/26/2021, which revealed cervical spondylotic changes. No fracture. Patient's previous MRI of the cervical spine from 05/07/2018 revealed at C3-4, there is moderate to severe spinal canal stenosis with AP canal diameter narrowed to 5.5 mm. There is abutment and flattening of both the dorsal and ventral cord. Patient has been seen by Dr. Brannon on 06/11/2020 for altered mental status and vertigo. The vertigo was felt to be related to elevated Depakote level. Patient has history of hypertension, denies diabetes. She has smoked 1 pack/day for last 30 years. Denies any alcohol use. Patient does drink about 4-5 diet Coke per day. Review of Systems All pertinent positive and negatives mentioned in HPI. Patient has diffuse musculoskeletal pains. Past Medical History Past Medical History: Asthma, Heart Failure, COPD, Fibromyalgia, GERD/Reflux, Hypertension, Osteoarthritis (OA), Pneumonia, Pulmonary Embolus (PE), Skin Disorder, Thyroid Disorder Additional Past Medical History / Comment(s): Spinal Stenosis, Cervical disc disease/stenosis, scoliosis, recently having numbness/tingling L side of face/neck, recently saw sort line worker for L hemidiaphragmatic elevation-pt states she was told this was probably genetic, recently bronchitis and past bronchitis, pt states recent med change (water pill) d/t electrolyte problem/kidney function being affected, pt states she has had pulmonary emboli, past bilateral lower extremity cellulitis, edema lower extremities, IBS, hemorrhoids, benign colon polyps, sinus problems, UTIs, bacteremia/sepsis, cardiac murmur, past L ankle and L wrist fractures. History of Any Multi-Drug Resistant Organisms: None Reported Past Surgical History: Bariatric Surgery, Section, Cholecystectomy, Hysterectomy, Tonsillectomy Additional Past Surgical History / Comment(s): EGD, colonoscopies, gastric bypass, surgery for deviated septum, left cataract removal (having laser procedure on that eye 11/24/23) Past Anesthesia/Blood Transfusion Reactions: Previous Problems w/ Anesthesia Additional Past Anesthesia/Blood Transfusion Reaction / Comment(s): itching after hysterectomy, some kind of breathing problem after gastric bypass-not sure what happened Past Psychological History: Anxiety, Bipolar, Depression, Panic Disorder Smoking Status: Current every day smoker Past Alcohol Use History: None Reported Past Drug Use History: Marijuana - Past Family History Mother Family Medical History: Congestive Heart Failure (CHF), Hypertension Father History Unknown: Yes Additional Family Medical History / Comment(s): Father at the age of 45 yrs d/t having had rheumatic fever as a child and heart valve disease. Medications and Allergies Home Medications Medication Instructions Recorded Confirmed Type Montelukast [Singulair] 10 mg PO HS 12/17/13 03/18/24 History Levothyroxine Sodium [Synthroid] 150 mcg PO DAILY 03/29/20 03/18/24 History Budesonide/Formoterol Fumarate 2 puff INHALATION RT-BID 06/12/21 03/18/24 History [Symbicort 160-4.5 Mcg Inhaler] Famotidine [Pepcid] 20 mg PO BID 09/03/21 03/18/24 History Divalproex ER [Depakote ER] 250 mg PO HS 10/07/21 03/18/24 History Tamsulosin [Flomax] 0.4 mg PO DAILY@1200 10/26/21 03/18/24 History Ferrous Sulfate [Iron (65 MG 325 mg PO DAILY 11/13/22 03/18/24 History Elemental)] Ipratropium-Albuterol Nebulize 3 ml INHALATION RT-QID PRN 11/13/22 03/18/24 History [Duoneb 0.5 mg-3 mg/3 ml Soln] Metoprolol Tartrate [Lopressor] 25 mg PO BID 11/13/22 03/18/24 History Thiamine [Vitamin B-1] 100 mg PO DAILY@1700 11/13/22 03/18/24 History Albuterol Inhaler [Ventolin Hfa 2 puff INHALATION RT-QID PRN #1 11/17/22 03/18/24 Rx Inhaler] each Ibandronate Sodium [Boniva] 150 mg PO Q30D 05/03/23 03/18/24 History Melatonin 5 mg PO HS PRN 05/03/23 03/18/24 History lisinopriL [Zestril] 20 mg PO DAILY 05/03/23 03/18/24 History Acetaminophen [Tylenol Arthritis] 650 mg PO Q4HR PRN 10/24/23 03/18/24 History amLODIPine [Norvasc] 5 mg PO DAILY 12/12/23 03/18/24 History clonazePAM [KlonoPIN ODT] 0.25 mg PO HS 12/12/23 03/18/24 History OLANZapine [ZyPREXA] 15 mg PO HS 01/22/24 03/18/24 History Albuterol Nebulized [Ventolin 5 mg INHALATION RT-QID PRN #60 each 01/24/24 03/18/24 Rx Nebulized] Naproxen [Naprosyn] 500 mg PO BID 30 Days #60 tablet 02/16/24 03/18/24 Rx HYDROcodone/APAP 5-325MG [[place] 1 tab PO Q6HR PRN 3 Days #12 tab 03/15/24 03/18/24 Rx 5-325] Folic Acid 1 mg PO DAILY@1700 03/18/24 03/18/24 History Venlafaxine HCl ER [Effexor Xr] 150 mg PO DAILY 03/18/24 03/18/24 History hydrOXYzine HCL [Atarax] 25 mg PO BID 03/18/24 03/18/24 History lamoTRIgine [LaMICtal] 150 mg PO BID 03/18/24 03/18/24 History Allergies Allergy/AdvReac Type Severity Reaction Status Date / Time codeine Allergy Unknown Verified 03/18/24 14:48 Childhood Penicillins Allergy Rash/Hives Verified 03/18/24 14:48 Sulfa (Sulfonamide Allergy Rash/Hives Verified 03/18/24 14:48 Antibiotics) Physical Examination - Vital Signs Vital Signs: Vital Signs Temp Pulse Pulse Resp BP BP BP 03/19/24 07:49 98.3 F 68 18 151/67 03/19/24 01:52 97.6 F 59 L 20 151/80 03/18/24 19:46 99.1 F 80 16 128/66 03/18/24 15:56 98.4 F 84 18 170/71 03/18/24 14:21 78 18 146/72 03/18/24 12:38 77 18 160/73 Pulse Ox 03/19/24 07:49 94 L 03/19/24 01:52 98 03/18/24 19:46 93 L 03/18/24 15:56 92 L 03/18/24 14:21 92 L 03/18/24 12:38 92 L Intake and Output 03/18/24 03/19/24 03/19/24 22:59 06:59 14:59 Other: Voiding Method External Catheter # Voids 1 1 Weight 72.121 kg Patient is an elderly female, who is constantly crying, appears to be in distress due to pain, involving her whole body. Patient is alert awake oriented to time place and person. Patient knows it is March and the year is 2023 and that she is in [facility] and name of the current president is Samuel Etienne. Speech and language functions are normal. Patient can name and repeat very well. No aphas ia or dysarthria. Attention, concentration and fund of knowledge is adequate. On cranial nerve examination, pupils are equal, round and reacting to light, visual flores are full on confrontation, with no neglect on double simultaneous stimulation. Extraocular muscles are intact with no nystagmus. Face is symmetric, tongue protrudes to the midline. Palatal elevation and sensation normal, hearing and shoulder shrug normal, facial sensation normal. On muscle strength testing, there is no pronator drift and the strength is normal in arms and legs distally and proximally. Hip flexion may be 4+5- bilaterally. Patient has slightly decreased range of motion of the right ankle. The strength appears normal. Deep tendon reflexes are symmetric 2+ to 3 all over and plantars downgoing. Sensory to touch is equal with no neglect on double simultaneous stimulation. Cerebellar function showed no ataxia, but mild tremors for [id number] testing bilaterally. No dysdiadochokinesia. Tremors at rest. Patient has moderate low-frequency tremors of outstretched hands. No ataxia for heel-to- hogan testing on either side. Tone and bulk of muscles normal. Gait deferred.. On general examination, there is no carotid bruit or murmur, S1-S2 audible. Chest is clear on consultation. Abdomen is soft nontender. No organomegaly, bowel sounds present. Peripheral pulses are present. No peripheral edema. Patient has some scabs on her legs. Results - Laboratory Findings CBC and BMP: 03/18/24 11:05 03/19/24 04:38 Abnormal Lab Findings: Abnormal Labs 03/18/24 03/18/24 03/19/24 11:05 11:05 04:38 WBC 18.4 H Neutrophils # 15.4 H Sodium 129 L 132 L Creatinine 0.46 L 0.5 L Calcium 8.4 L AST 43 H ALT 49 H Total Protein 5.6 L Assessment and Plan Assessment: * New onset bilateral occipital headache, paresthesias in the occipital nerve distribution and posterior neck pain, likely due to occipital neura lgia/neuropathy. Patient's previous MRI of the cervical spine from 05/07/2018 revealed severe spinal canal stenosis at C3-4 level. * Chronic lower back pain, with multilevel significant spinal canal stenosis at L3-4, L4-5 and L5-S1 levels. * Scoliosis. * Hyponatremia * Elevated liver enzymes * Leukocytosis * Tobacco use * Severe anxiety disorder * Chronic pain * Polypharmacy Plan: * MRI of the cervical spine. * B12, folate, MMA, B6, hemoglobin A1c, ESR, CRP, JIM, RF. * Suggest MRI of the thoracic and lumbar spine for severe pain. Orthopedic spine on board. * Treatment of anxiety disorder as per patient. * Start gabapentin 300 mg twice daily for possible occipital neuralgia. Also will help with neuropathic pains in the legs. * If symptoms persist, occipital nerve block could be considered. * Recommend complete tobacco cessation. * DVT prophylaxis: Patient on heparin 5000 units subcu every 12 hour. * Neurology will follow. Thank you for the consult.
[2024-03-19] MEDS: GABAPENTIN 300 MG CAP PO SCH (20:16)
[2024-03-19] MEDS: MELATONIN 5 MG TABLET PO PRN (20:24)
[2024-03-20 00:01] LABS: Basophils # (A) 0.08 X 10*3/uL (0.00-0.10); Basophils % (A) 0.4 %; Eosinophils # (A) 0.18 X 10*3/uL (0.04-0.35); HCT 34.7 % (37.2-46.3); HGB 11.2 g/dL (12.0-15.0); Lymphocytes # (A) 1.83 X 10*3/uL (0.90-5.00); Lymphocytes % (A) 9.7 %; MCH 30.5 pg (27.0-32.0); MCHC 32.3 g/dL (32.0-37.0); MCV 94.6 FL (80.0-97.0); Mean Platelet Volume 9.9 FL (9.5-12.2); Monocytes # (A) 1.15 X 10*3/uL (0.20-1.00); Monocytes % (A) 6.1 %; NRBC Per 100 WBC 0 X 10*3/uL (0.00-0.01); Neutrophils # (A) 15.58 X 10*3/uL (1.80-7.70); Neutrophils % (A) 82.3 %; Platelet Count 254 X 10*3/uL (140-440); RBC 3.67 X 10*6/uL (4.10-5.20); RDW 13.3 % (11.5-14.5); WBC 18.91 X 10*3/uL (4.50-10.00)
--- NOTE | 2024-03-20 07:56 | P.CONS ---
History of Present Illness - Reason for Consult Consult date: 03/19/24 Leukocytosis Requesting physician: Emely Ramirez - Chief Complaint Weakness and back pain x days - History of Present Illness Patient is a 68-year-old female with a past medical history significant for fibromyalgia COPD heart failure asthma osteoarthritis PE patient presenting to the hospital for evaluation of back pain and numbness patient was describing the pain to be sharp in nature with radiation of her back progressing getting worse over the last week denies any history of any trauma or fall and also complains of some numbness to the lower extremity patient denies having any headache or URI symptoms denies having any chest pain some shortness of breath he also have a cough moderate intensity has bring up some yellowish sputum no hemoptysis no pleuritic chest pain no abdominal pain no diarrhea and no fever patient on presentation to the hospital was afebrile and no fever have been called subsequently patient was not tachycardic or hypotensive patient did have a white count of 18.4 repeat is 18.91 with a left shift creatinine 0.46 electrolytes are normal liver isms mildly elevated patient did have a negative UA influenza RSV COVID testing was negative chest x-ray bibasilar atelectasis volume overload could be considered small right and minimal left effusion patient has been admitted to hospital infectious disease consulted because of her elevated white count and the patient had been empirically started on Rocephin 1 g daily Review of Systems Positive point and negatives has been mentioned in the HPI, complete review of systems was performed and all other systems are negative Past Medical History Past Medical History: Asthma, Heart Failure, COPD, Fibromyalgia, GERD/Reflux, Hypertension, Osteoarthritis (OA), Pneumonia, Pulmonary Embolus (PE), Skin Disorder, Thyroid Disorder Additional Past Medical History / Comment(s): Spinal Stenosis, Cervical disc disease/stenosis, scoliosis, recently having numbness/tingling L side of face/neck, recently saw noc analyst for L hemidiaphragmatic elevation-pt states she was told this was probably genetic, recently bronchitis and past bronchitis, pt states recent med change (water pill) d/t electrolyte problem/kidney function being affected, pt states she has had pulmonary emboli, past bilateral lower extremity cellulitis, edema lower extremities, IBS, hemorrhoids, benign colon polyps, sinus problems, UTIs, bacteremia/sepsis, cardiac murmur, past L ankle and L wrist fractures. History of Any Multi-Drug Resistant Organisms: None Reported Past Surgical History: Bariatric Surgery, Section, Cholecystectomy, Hysterectomy, Tonsillectomy Additional Past Surgical History / Comment(s): EGD, colonoscopies, gastric bypass, surgery for deviated septum, left cataract removal (having laser procedure on that eye 11/24/23) Past Anesthesia/Blood Transfusion Reactions: Previous Problems w/ Anesthesia Additional Past Anesthesia/Blood Transfusion Reaction / Comm: itching after hysterectomy, some kind of breathing problem after gastric bypass-not sure what happened Past Psychological History: Anxiety, Bipolar, Depression, Panic Disorder Smoking Status: Current every day smoker Past Alcohol Use History: None Reported Past Drug Use History: Marijuana - Past Family History Mother Family Medical History: Congestive Heart Failure (CHF), Hypertension Father History Unknown: Yes Additional Family Medical History / Comment(s): Father at the age of 45 yrs d/t having had rheumatic fever as a child and heart valve disease. Medications and Allergies Home Medications Medication Instructions Recorded Confirmed Type Montelukast [Singulair] 10 mg PO HS 12/17/13 03/18/24 History Levothyroxine Sodium [Synthroid] 150 mcg PO DAILY 03/29/20 03/18/24 History Budesonide/Formoterol Fumarate 2 puff INHALATION RT-BID 06/12/21 03/18/24 History [Symbicort 160-4.5 Mcg Inhaler] Famotidine [Pepcid] 20 mg PO BID 09/03/21 03/18/24 History Divalproex ER [Depakote ER] 250 mg PO HS 10/07/21 03/18/24 History Tamsulosin [Flomax] 0.4 mg PO DAILY@1200 10/26/21 03/18/24 History Ferrous Sulfate [Iron (65 MG 325 mg PO DAILY 11/13/22 03/18/24 History Elemental)] Ipratropium-Albuterol Nebulize 3 ml INHALATION RT-QID PRN 11/13/22 03/18/24 History [Duoneb 0.5 mg-3 mg/3 ml Soln] Metoprolol Tartrate [Lopressor] 25 mg PO BID 11/13/22 03/18/24 History Thiamine [Vitamin B-1] 100 mg PO DAILY@1700 11/13/22 03/18/24 History Albuterol Inhaler [Ventolin Hfa 2 puff INHALATION RT-QID PRN #1 11/17/22 03/18/24 Rx Inhaler] each Ibandronate Sodium [Boniva] 150 mg PO Q30D 05/03/23 03/18/24 History Melatonin 5 mg PO HS PRN 05/03/23 03/18/24 History lisinopriL [Zestril] 20 mg PO DAILY 05/03/23 03/18/24 History Acetaminophen [Tylenol Arthritis] 650 mg PO Q4HR PRN 10/24/23 03/18/24 History amLODIPine [Norvasc] 5 mg PO DAILY 12/12/23 03/18/24 History clonazePAM [KlonoPIN ODT] 0.25 mg PO HS 12/12/23 03/18/24 History OLANZapine [ZyPREXA] 15 mg PO HS 01/22/24 03/18/24 History Albuterol Nebulized [Ventolin 5 mg INHALATION RT-QID PRN #60 each 01/24/24 03/18/24 Rx Nebulized] Naproxen [Naprosyn] 500 mg PO BID 30 Days #60 tablet 02/16/24 03/18/24 Rx HYDROcodone/APAP 5-325MG [[place] 1 tab PO Q6HR PRN 3 Days #12 tab 03/15/24 03/18/24 Rx 5-325] Folic Acid 1 mg PO DAILY@1700 03/18/24 03/18/24 History Venlafaxine HCl ER [Effexor Xr] 150 mg PO DAILY 03/18/24 03/18/24 History hydrOXYzine HCL [Atarax] 25 mg PO BID 03/18/24 03/18/24 History lamoTRIgine [LaMICtal] 150 mg PO BID 03/18/24 03/18/24 History Allergies Allergy/AdvReac Type Severity Reaction Status Date / Time codeine Allergy Unknown Verified 03/18/24 14:48 Childhood Penicillins Allergy Rash/Hives Verified 03/18/24 14:48 Sulfa (Sulfonamide Allergy Rash/Hives Verified 03/18/24 14:48 Antibiotics) Physical Exam Vitals: Vital Signs Temp Pulse Pulse Resp BP BP BP 03/19/24 07:49 98.3 F 68 18 151/67 03/19/24 01:52 97.6 F 59 L 20 151/80 08/31/24 19:46 99.1 F 80 16 128/66 03/18/24 15:56 98.4 F 84 18 170/71 03/18/24 14:21 78 18 146/72 03/18/24 12:38 77 18 160/73 Pulse Ox 03/19/24 07:49 94 L 03/19/24 01:52 98 03/18/24 19:46 93 L 03/18/24 15:56 92 L 03/18/24 14:21 92 L 03/18/24 12:38 92 L Intake and Output 03/18/24 03/19/24 03/19/24 22:59 06:59 14:59 Other: Voiding Method External Catheter # Voids 1 1 Weight 72.121 kg GENERAL DESCRIPTION: Elderly female lying in bed, no distress. No tachypnea or accessory muscle of respiration use. HEENT: Shows Pallor , no scleral icterus. Oral mucous membrane is dry. No pharyngeal erythema or thrush NECK: Trachea central, no thyromegaly. LUNGS: Unlabored breathing. Coarse breath sounds bilaterally HEART: S1, S2, regular rate and rhythm. No loud murmur ABDOMEN: Soft, no tenderness , guarding or rigidity, no organomegaly EXTREMITIES: No edema of feet. SKIN: No rash, no masses palpable. NEUROLOGICAL: The patient is awake, alert, oriented x3, mood and affect normal. Results CBC & Chem 7: 03/19/24 04:38 03/19/24 04:38 Labs: Abnormal Lab Results - Last 24 Hours (Table) 03/19/24 Range/Units 04:38 Sodium 132 L (135-145) mmol/L Creatinine 0.5 L (0.6-1.5) mg/dL Calcium 8.4 L (8.7-10.3) mg/dL Assessment and Plan (1) Allergy to multiple antibiotics Current Visit: No Status: Acute Code(s): Z88.1 - ALLERGY STATUS TO OTHER ANTIBIOTIC AGENTS SNOMED Code(s): 257222109 (2) Leukocytosis Current Visit: No Status: Acute Code(s): D72.829 - ELEVATED WHITE BLOOD CELL COUNT, UNSPECIFIED SNOMED Code(s): 046293733 Plan: 1patient with a leukocytosis in this patient who did have multiple comorbidities presenting with admitted to the hospital with the back pain which apparently has been chronic for and orthopedics has been consulted patient did have respiratory symptoms of cough and bringing up some yellow sputum chest x- ray with evidence of bibasilar infiltrate with a question of possible pulmonary source 2-patient with multiple antibiotic ALLERGIES that would limit the number of antibiotic safe to use 3-we will wait for the procalcitonin finalized check a sputum for Gram stain and culture, blood cultures, CRP we will also check a sed rate 4-patient to continue with Rocephin while waiting for the workup to be completed We will follow on clinical condition and cultures to further adjust medication if needed Thank you for this consultation we will follow the patient along with you Dictation was produced using [employer] dictation software. please excuse any grammatical, word or spelling errors. Time with Patient: Greater than 30
--- NOTE | 2024-03-20 10:03 | P.PN ---
Subjective Progress Note Date: 03/20/24 This is a 68-year-old female patient with a known history of fibromyalgia, oxygen dependent chronic obstructive pulmonary disease, hypertension, hypothyroidism, chronic back pain. She has been in the emergency room 3 times this month with complaints of chronic back pain with tingling and numbness and weakness of the lower extremities not improved with [place] at home. CT scan of the lumbar spine on 03/13/2024 revealed severe scoliosis with severe degenerative disc disease at all levels. CT scan of the abdomen and pelvis on 03/15/2024 revealed no evidence of acute abdominal pelvic process. She came into the emergency room again yesterday 03/18/2024 with similar complaints. A chest x-ray revealed bibasilar atelectasis and early volume overload with a small right and minimal left pleural effusions. We were consulted for the same. White count 18.4. Hemoglobin 12.5. Platelets 251. Sodium 129. Potassium 4.3. Bicarb 28. BUN 12. Creatinine 0.46. AST 43. ALT 49. Urinalysis clean. Viral screen negative. She is seen today in consultation on the regular medical floor. She is quite anxious and teary-eyed. She states she is confused as to why she is here. She has ongoing complaints of chronic back pain tingling and numbness of the lower extremities. She is maintaining good O2 saturations in the 90s on 3 L/min per nasal cannula. She is normally on 4 L at home. She is afebrile. Hemodynamically stable. No cough or congestion. No fever or chills. The patient is seen today March 20, 2024 in follow-up on the regular medical floor. She is currently resting comfortably in bed. Awake and alert in no acute distress. Maintaining O2 saturations in the 90s on 2 L/min per nasal cannula. She remains on Symbicort, albuterol, Singulair. Heparin for DVT prophylaxis. Antibiotics in the form of ceftriaxone. Procalcitonin still pending. Psychiatry consult pending regarding her anxiety. MRI of the vocal spine is pending Objective - Vital Signs Vital signs: Vital Signs Temp 97.9 F 03/20/24 07:13 Pulse 68 03/20/24 08:11 Resp 18 03/20/24 07:13 BP 170/72 03/20/24 07:13 Pulse Ox 94 L 03/20/24 07:59 FiO2 Intake & Output 03/19/24 03/20/24 03/20/24 18:59 06:59 18:59 Intake Total 540 Balance 540 Intake: Oral 540 Other: Voiding Method External Catheter # Voids 1 - Exam GENERAL EXAM: Alert, anxious at times, 68-year-old female, on 2 L nasal cannula, comfortable in no apparent distress. HEAD: Normocephalic. EYES: Normal reaction of pupils, equal size. NOSE: Clear with pink turbinates. THROAT: No erythema or exudates. NECK: No masses, no JVD. CHEST: No chest wall deformity. LUNGS: Equal air entry with no crackles, wheeze, rhonchi or dullness. CVS: S1 and S2 normal with no audible murmur, regular rhythm. ABDOMEN: No hepatosplenomegaly, normal bowel sounds, no guarding or rigidity. SPINE: No scoliosis or deformity SKIN: No rashes CENTRAL NERVOUS SYSTEM: No focal deficits, tone is normal in all 4 extremities. EXTREMITIES: There is no peripheral edema. No clubbing, no cyanosis. Peripheral pulses are intact. - Labs CBC & Chem 7: 03/19/24 04:38 03/19/24 04:38 Labs: Abnormal Lab Results - Last 24 Hours (Table) 03/19/24 03/19/24 03/19/24 Range/Units 04:38 04:38 15:50 WBC 18.91 H (4.50-10.00) X 10*3/uL RBC 3.67 L (4.10-5.20) X 10*6/uL Hgb 11.2 L (12.0-15.0) g/dL Hct 34.7 L (37.2-46.3) % Immature Gran # 0.09 H (0.00-0.04) X 10*3/uL Neutrophils # 15.58 H (1.80-7.70) X 10*3/uL Monocytes # 1.15 H (0.20-1.00) X 10*3/uL Sodium 132 L (135-145) mmol/L Creatinine 0.5 L (0.6-1.5) mg/dL Calcium 8.4 L (8.7-10.3) mg/dL C-Reactive Protein 7.5 H (<1.0) mg/dL Assessment and Plan Assessment: Acute on chronic back pain with paresthesias of the lower extremities Chronic hypoxic respiratory failure secondary to chronic obstructive pulmonary disease Hyponatremia, improving Leukocytosis, currently on ceftriaxone, procalcitonin pending Bipolar disorder with significant anxiety Fibromyalgia History of chronic tobacco dependence Hypothyroidism Hypertension Marijuana use Plan: The patient was seen and evaluated Medications reviewed Continue Symbicort, albuterol, Singulair Procalcitonin pending Psychiatry consult pending MRI of the cervical spine pending Currently stable on 2 L nasal cannula This patient was seen independently by the pulmonary nurse practitioner addressing pulmonary issues I have personally seen and examined the patient, performed the documentation and the assessment and plan as written. Number of minutes spent on the visit: 24.
[2024-03-20] MEDS: HYDROcodone/APAP 5-325MG 1 EACH TAB PO PRN (10:14)
[2024-03-20 12:52] LABS: Basophils # (A) 0.04 X 10*3/uL (0.00-0.10); Basophils % (A) 0.3 %; Eosinophils # (A) 0.13 X 10*3/uL (0.04-0.35); Eosinophils % (A) 1.1 %; HCT 35.1 % (37.2-46.3); Lymphocytes # (A) 1.89 X 10*3/uL (0.90-5.00); Lymphocytes % (A) 16.5 %; MCH 30.7 pg (27.0-32.0); MCHC 31.3 g/dL (32.0-37.0); Mean Platelet Volume 9.8 FL (9.5-12.2); Monocytes # (A) 0.98 X 10*3/uL (0.20-1.00); Monocytes % (A) 8.5 %; NRBC Per 100 WBC 0 X 10*3/uL (0.00-0.01); Neutrophils % (A) 73.3 %; Platelet Count 259 X 10*3/uL (140-440); RBC 3.58 X 10*6/uL (4.10-5.20); RDW 13.7 % (11.5-14.5); WBC 11.48 X 10*3/uL (4.50-10.00)
[2024-03-20 13:10] LABS: BUN/Creat Ratio 17.29 Ratio (12.00-20.00); Blood Urea Nitrogen 12.1 mg/dL (9.0-27.0); Calcium 8.4 mg/dL (8.7-10.3); Chloride 98 mmol/L (96-109); Glucose 85 mg/dL (70-110); Potassium 4.7 mmol/L (3.5-5.5); Sodium 133 mmol/L (135-145)
--- NOTE | 2024-03-20 14:15 | P.PN ---
Subjective Progress Note Date: 03/20/24 Principal diagnosis: Chronic low back pain, chronic neck pain Patient was evaluated at bedside today, she is resting in her hospital chair. She seems somewhat improved with regards to her anxiety level compared to yesterday. We are awaiting psychiatric evaluation. Patient is being evaluated by both internal medicine and neurology, they did start her on gabapentin twice a day, a cervical spine MRI was also ordered. Other laboratory tests were also ordered by neurology. Objective - Vital Signs Vital signs: Vital Signs Temp 97.9 F 03/20/24 07:13 Pulse 68 03/20/24 08:11 Resp 18 03/20/24 07:13 BP 170/72 03/20/24 07:13 Pulse Ox 94 L 03/20/24 07:59 FiO2 Intake & Output 03/19/24 03/20/24 03/20/24 18:59 06:59 18:59 Intake Total 540 Balance 540 Intake: Oral 540 Other: Voiding Method External Catheter # Voids 1 - Exam Gen: AOx3, NAD VSS stable at this time Integument: No open lesions, sores, areas of soft tissue swelling or erythema present throughout the cervical, thoracic or lumbar spine Palpation: Patient demonstrates generalized paraspinal pain in the cervical and lumbar region ROM: Full range of motion in all major muscle groups of the bilateral upper and lower extremities, no focal deficits are appreciated Sensory Exam: Senory exam to light touch is intact C5-T1 Senosry exam to light touch is intact L2-S1 Motor: 4+/5 strength appreciated the bilateral upper extremities with shoulder elevation, shoulder abduction, elbow extension, elbow flexion, wrist extension, wrist flexion, land economist 4+5 strength appreciated the bilateral lower extremities with hip flexion, knee extension, knee flexion, plantarflexion, dorsiflexion, EHL, FHL Reflexes: Negative Dallas's bilaterally Negative clonus bilaterally Special Test: Negative straight leg raise bilaterally Negative logroll maneuver bilaterally - Labs CBC & Chem 7: 03/20/24 03:06 03/20/24 03:06 Labs: Abnormal Lab Results - Last 24 Hours (Table) 03/19/24 03/19/24 03/20/24 Range/Units 04:38 15:50 03:06 WBC 18.91 H (4.50-10.00) X 10*3/uL RBC 3.67 L (4.10-5.20) X 10*6/uL Hgb 11.2 L (12.0-15.0) g/dL Hct 34.7 L (37.2-46.3) % MCV (80.0-97.0) FL MCHC (32.0-37.0) g/dL Immature Gran # 0.09 H (0.00-0.04) X 10*3/uL Neutrophils # 15.58 H (1.80-7.70) X 10*3/uL Monocytes # 1.15 H (0.20-1.00) X 10*3/uL Sodium (135-145) mmol/L Hemoglobin A1c 6.2 H (<=6.0) % Calcium (8.7-10.3) mg/dL C-Reactive Protein 7.5 H (<1.0) mg/dL 03/20/24 03/20/24 Range/Units 03:06 03:06 WBC 11.48 H (4.50-10.00) X 10*3/uL RBC 3.58 L (4.10-5.20) X 10*6/uL Hgb 11.0 L (12.0-15.0) g/dL Hct 35.1 L (37.2-46.3) % MCV 98.0 H (80.0-97.0) FL MCHC 31.3 L (32.0-37.0) g/dL Immature Gran # (0.00-0.04) X 10*3/uL Neutrophils # 8.40 H (1.80-7.70) X 10*3/uL Monocytes # (0.20-1.00) X 10*3/uL Sodium 133 L (135-145) mmol/L Hemoglobin A1c (<=6.0) % Calcium 8.4 L (8.7-10.3) mg/dL C-Reactive Protein (<1.0) mg/dL Assessment and Plan Assessment: Chronic low back pain Chronic neck pain Bilateral upper and lower extremity paresthesias Scoliosis Multilevel lumbar spondylosis Multilevel lumbar central canal and neuroforaminal stenosis Leukocytosis Anxiety Other medical comorbidities Plan: Imaging: Await cervical spine MRI Plan: Continue conservative measures with current medicine regimen Other medical specialty recommendations appreciated DVT prophylaxis per primary medical service Weight-bear as tolerated with walker Continue to follow during hospital stay Time with Patient: Less than 30
[2024-03-20 15:01] LABS: Rheumatoid Factor, Qnt <15 IU/mL (0-15)
--- NOTE | 2024-03-20 17:17 | P.PN ---
Subjective Progress Note Date: 03/20/24 Interval History: 88-year-old female with past medical history significant for asthma, CHF, also fibromyalgia, COPD, GERD, hypertension, history of PE, history of hypothyroidism, cervical stenosis who presented to ER with a complaint of back pain and numbness. Patient has been in the hospital previously for the similar complaints. Patient reported that she follows orthopedic as outpatient and has been told that she is not a surgical candidate for her degenerative disc disease. Patient reported that she has chronic back pain, radiating to L left lower extremity, sharp in nature, now progressively worsening throughout the week. Patient denied any new injuries or traumas. Patient also reported cr amping and numbness in tingling sensation in the epigastric area. Patient also reported that she is having pain in the upper back, neck, scalp, patient reported numbness rather than pain in those areas. Patient denied any saddle anesthesia, bowel or bladder incontinence. Patient denied any fever or chills. Patient is a poor historian, very anxious, tearful due to anxiety, did not seem to be in excruciating pain. Patient reported that she has COPD and wears 4 L oxygen at baseline. Vitals: Afebrile, pulse rate 77, respiratory rate 18, blood pressure 141/80, saturating 92% on 3 to 4 L. Labs: WBCs 18.4, hemoglobin 12.5, platelets 251. Sodium 129, potassium 4.3, creatinine 0.43, BUN 12, AST 43, ALT 49, normal bilirubin and alkaline phosphatase. UA unremarkable. 03/19--patient was seen and examined today. On 3 L baseline oxygen. Vital stable. Afebrile. Sodium improved to 132, creatinine stable 0.5. CBC report not available yet. Pulmonary and ID consulted and following. Patient currently on Rocephin. Awaiting orthopedic evaluation. 03/20--patient was seen and examined today. Patient complaining of anxiety, tearful. Complaining of neck pain and back pain. Pulmonary following. Neurology recommended MRI cervical spinepending. Orthopedic spine recommended to continue conservative measures, await cervical spine MRI. Psychiatry consulted. Assessment and plan: Chronic back pain: Presented with worsening of chronic back pain, radiating to left lower extremity. Monitor with neurochecks. Pain control as needed Discussed safe opioid use with the patient Orthopedic consulted, follows Dr. Sotelo--- Neurology consultedrecommended MRI cervical spine, B12 folate MMA, B6, A1c, ESR ESR CRP JIM RF. Gabapentin CT lumbar spine 03/13/2024 showed severe scoliosis with severe degenerative disc disease at all levels, disc herniation L3-4, L4-5 and L5-S1 with severe canal stenosis, multiple foraminal encroachment, bilateral renal calculi. Leukocytosis: Proving Pleural effusion: COPD: Chronic hypoxic respiratory failure: 3 to 4 L oxygen at baseline Continue inhalers/bronchodilator protocol Rocephin Infectious disease consulted Pulmonary consulted Hyponatremia: Improving with IVF Hypovolemic. Hypertension: Resume home meds Severe anxiety: Continue home meds Psychiatry consulted DVT prophylaxis Subcutaneous heparin PHYSICAL EXAMINATION: GENERAL: The patient is A&O x3, NAD HEENT: EOMI, Sclerae anicteric, Moist Mucous membranes Neck: Supple, Non tender, No JVD PULMONARY: Equal breath souds B/L, No wheezing, No crackles. CARDIOVASCULAR: S1, S2 present. No murmurs, rubs, or gallops. ABDOMEN: Soft, nontender, nondistended, normoactive bowel sounds. No guarding or rebound tenderness. MUSCULOSKELETAL: No edema, No cyanosis. No clubbing. Normal ROM. Intact peripheral pulses. EXTREMITIES: No cyanosis, clubbing, or pedal edema. NEUROLOGICAL: CN 2-12 grossly intact. No FND Skin: No Rash REVIEW OF SYSTEMS: CONSTITUTIONAL: No fever or chills. CARDIOVASCULAR: No chest pain, palpitations or syncope. PULMONARY: No shortness of breath, no cough, sore throat. GASTROINTESTINAL: No nausea, vomiting, diarrhea, abdominal pain. : No Dysuria, urgency, frequency. Extremities: No edema. NEUROLOGICAL: No headaches, no weakness, or numbness Dictation was produced using [employer] software. please excuse any grammatical, word or spelling errors. Objective - Vital Signs Vital signs: Vital Signs Temp 98.3 F 03/20/24 14:57 Pulse 73 03/20/24 14:57 Resp 17 03/20/24 14:57 BP 165/78 03/20/24 14:57 Pulse Ox 95 03/20/24 14:57 FiO2 Intake & Output 03/19/24 03/20/24 03/20/24 18:59 06:59 18:59 Intake Total 540 Balance 540 Intake: Oral 540 Other: Voiding Method External Catheter # Voids 1 - Labs CBC & Chem 7: 03/20/24 03:06 03/20/24 03:06 Labs: Abnormal Lab Results - Last 24 Hours (Table) 03/19/24 03/20/24 03/20/24 Range/Units 04:38 03:06 03:06 WBC 18.91 H (4.50-10.00) X 10*3/uL RBC 3.67 L (4.10-5.20) X 10*6/uL Hgb 11.2 L (12.0-15.0) g/dL Hct 34.7 L (37.2-46.3) % MCV (80.0-97.0) FL MCHC (32.0-37.0) g/dL Immature Gran # 0.09 H (0.00-0.04) X 10*3/uL Neutrophils # 15.58 H (1.80-7.70) X 10*3/uL Monocytes # 1.15 H (0.20-1.00) X 10*3/uL Sodium 133 L (135-145) mmol/L Hemoglobin A1c 6.2 H (<=6.0) % Calcium 8.4 L (8.7-10.3) mg/dL C-Reactive Protein 7.20 H (0.00-0.80) mg/dL 03/20/24 Range/Units 03:06 WBC 11.48 H (4.50-10.00) X 10*3/uL RBC 3.58 L (4.10-5.20) X 10*6/uL Hgb 11.0 L (12.0-15.0) g/dL Hct 35.1 L (37.2-46.3) % MCV 98.0 H (80.0-97.0) FL MCHC 31.3 L (32.0-37.0) g/dL Immature Gran # (0.00-0.04) X 10*3/uL Neutrophils # 8.40 H (1.80-7.70) X 10*3/uL Monocytes # (0.20-1.00) X 10*3/uL Sodium (135-145) mmol/L Hemoglobin A1c (<=6.0) % Calcium (8.7-10.3) mg/dL C-Reactive Protein (0.00-0.80) mg/dL
[2024-03-21 09:02] LABS: Basophils # (A) 0.05 X 10*3/uL (0.00-0.10); Basophils % (A) 0.5 %; Eosinophils # (A) 0.24 X 10*3/uL (0.04-0.35); Eosinophils % (A) 2.5 %; HCT 37.2 % (37.2-46.3); HGB 11.8 g/dL (12.0-15.0); Lymphocytes # (A) 2.18 X 10*3/uL (0.90-5.00); Lymphocytes % (A) 22.7 %; MCH 31.1 pg (27.0-32.0); MCHC 31.7 g/dL (32.0-37.0); MCV 97.9 FL (80.0-97.0); Mean Platelet Volume 9.8 FL (9.5-12.2); Monocytes % (A) 9.4 %; NRBC Per 100 WBC 0 X 10*3/uL (0.00-0.01); Neutrophils # (A) 6.19 X 10*3/uL (1.80-7.70); Neutrophils % (A) 64.4 %; Platelet Count 300 X 10*3/uL (140-440); RDW 13.8 % (11.5-14.5); WBC 9.61 X 10*3/uL (4.50-10.00)
[2024-03-21 10:26] LABS: BUN/Creat Ratio 21.67 Ratio (12.00-20.00); Calcium 8.9 mg/dL (8.7-10.3); Carbon Dioxide 29.2 mmol/L (21.6-31.8); Chloride 99 mmol/L (96-109); Glucose 89 mg/dL (70-110); Potassium 4.6 mmol/L (3.5-5.5); Sodium 135 mmol/L (135-145)
--- NOTE | 2024-03-21 10:39 | P.PN ---
Subjective Progress Note Date: 03/20/24 Patient was seen for a follow-up. Patient states she is not feeling any better. No new concerns otherwise. Objective - Vital Signs Vital signs: Vital Signs Temp 98.7 F 03/21/24 08:00 Pulse 93 03/21/24 08:00 Resp 22 03/21/24 08:00 BP 191/93 03/21/24 08:00 Pulse Ox 94 L 03/21/24 08:04 FiO2 Intake & Output 03/20/24 03/21/24 03/21/24 18:59 06:59 18:59 Intake Total 240 Balance 240 Intake: Oral 240 Other: # Voids 1 - Exam Essentially unchanged. - Labs CBC & Chem 7: 03/21/24 05:55 03/21/24 05:55 Labs: Abnormal Lab Results - Last 24 Hours (Table) 03/20/24 03/20/24 03/20/24 Range/Units 03:06 03:06 03:06 WBC 11.48 H (4.50-10.00) X 10*3/uL RBC 3.58 L (4.10-5.20) X 10*6/uL Hgb 11.0 L (12.0-15.0) g/dL Hct 35.1 L (37.2-46.3) % MCV 98.0 H (80.0-97.0) FL MCHC 31.3 L (32.0-37.0) g/dL Immature Gran # (0.00-0.04) X 10*3/uL Neutrophils # 8.40 H (1.80-7.70) X 10*3/uL Sodium 133 L (135-145) mmol/L BUN/Creatinine Ratio (12.00-20.00) Ratio Hemoglobin A1c 6.2 H (<=6.0) % Calcium 8.4 L (8.7-10.3) mg/dL C-Reactive Protein 7.20 H (0.00-0.80) mg/dL 03/21/24 03/21/24 Range/Units 05:55 05:55 WBC (4.50-10.00) X 10*3/uL RBC 3.80 L (4.10-5.20) X 10*6/uL Hgb 11.8 L (12.0-15.0) g/dL Hct (37.2-46.3) % MCV 97.9 H (80.0-97.0) FL MCHC 31.7 L (32.0-37.0) g/dL Immature Gran # 0.05 H (0.00-0.04) X 10*3/uL Neutrophils # (1.80-7.70) X 10*3/uL Sodium (135-145) mmol/L BUN/Creatinine Ratio 21.67 H (12.00-20.00) Ratio Hemoglobin A1c (<=6.0) % Calcium (8.7-10.3) mg/dL C-Reactive Protein (0.00-0.80) mg/dL Microbiology - Last 24 Hours (Table) 03/19/24 15:50 Blood Culture - Preliminary Blood Assessment and Plan Assessment: * New onset bilateral occipital headache, paresthesias in the occipital nerve distribution and posterior neck pain, likely due to occipital neuralgia/neuropathy. Patient's previous MRI of the cervical spine from 05/07/2018 revealed severe spinal canal stenosis at C3-4 level. * Chronic lower back pain, with multilevel significant spinal canal stenosis at L3-4, L4-5 and L5-S1 levels. * Scoliosis. * Hyponatremia * Elevated liver enzymes * Leukocytosis * Tobacco use * Severe anxiety disorder * Chronic pain * Polypharmacy Plan: * MRI of the cervical spine. * B12 498, folate 15.9, hemoglobin A1c 6.2, ESR 19, CRP 7.5, RF<15. JIM, MMA, vitamin B6 pending * Suggest MRI of the thoracic and lumbar spine for severe pain. Orthopedic spine on board. * Treatment of anxiety disorder as per patient. * Start gabapentin 300 mg twice daily for possible occipital neuralgia. Also will help with neuropathic pains in the legs. * If symptoms persist, occipital nerve block could be considered. * Recommend complete tobacco cessation. * DVT prophylaxis: Patient on heparin 5000 units subcu every 12 hour.
[2024-03-21] MEDS: LORazepam 2 MG/ML INJ IV PRN (12:36)
--- NOTE | 2024-03-21 14:34 | P.CN ---
Psychiatric Consult - . Consult date: 03/21/24 Consult:: 03/21/24 13:30 Director Loss Prevention attempted to see patient today at the bedside, patient was down for MRI and unavailable, unknown when patient will return to the floors. Director Loss Prevention spoke briefly with patient's nurse for further information about the patient and the consult. It appears that patient's anxiety has been elevated during hospital stay. Director Loss Prevention reviewed patient's chart and medications. will attempt to see patient tomorrow morning if still needed. please consider the necessity of this consult needing/requiring completion on an inpatient basis vs outpatient. if patient is more suited for outpatient treatment/mgt then please provide mental health f/u resourses including [facility] informtation. thank you
--- NOTE | 2024-03-21 14:51 | P.PN ---
Subjective Progress Note Date: 03/20/24 Principal diagnosis: Reason for follow-up leukocytosis Patient is a 68-year-old female with a past medical history significant for fibromyalgia COPD heart failure asthma osteoarthritis PE patient presenting to the hospital for evaluation of back pain and numbness, patient was noticed to have elevated white count chest x-ray with bibasilar atelectasis versus infiltrate prompted this consultation. On today's evaluation that is 03/20/2024, the patient continues to be afebrile, the patient is on 2 L nasal oxygen and breathing comfortably, the Pt denies having any chest pain or any worsening of patient has been complaining of significant back pain and mildly short of tranquilizer no vomiting or diarrhea has been reported by the nursing staff. Patient white count is down to 11.48, creatinine 0.7 Objective - Vital Signs Vital signs: Vital Signs Temp 97.9 F 03/20/24 07:13 Pulse 68 03/20/24 08:11 Resp 18 03/20/24 07:13 BP 170/72 03/20/24 07:13 Pulse Ox 94 L 03/20/24 07:59 FiO2 Intake & Output 03/19/24 03/20/24 03/20/24 18:59 06:59 18:59 Intake Total 540 Balance 540 Intake: Oral 540 Other: Voiding Method External Catheter # Voids 1 - Exam GENERAL DESCRIPTION: An elderly female lying in bed in no distress RESPIRATORY SYSTEM: Unlabored breathing , decreased breath sounds at bases HEART: S1 S2 regular rate and rhythm , ABDOMEN: Soft , no tenderness EXTREMITIES: No edema feet - Labs CBC & Chem 7: 03/21/24 05:55 03/21/24 05:55 Labs: Abnormal Lab Results - Last 24 Hours (Table) 03/19/24 03/19/24 Range/Units 04:38 15:50 WBC 18.91 H (4.50-10.00) X 10*3/uL RBC 3.67 L (4.10-5.20) X 10*6/uL Hgb 11.2 L (12.0-15.0) g/dL Hct 34.7 L (37.2-46.3) % Immature Gran # 0.09 H (0.00-0.04) X 10*3/uL Neutrophils # 15.58 H (1.80-7.70) X 10*3/uL Monocytes # 1.15 H (0.20-1.00) X 10*3/uL C-Reactive Protein 7.5 H (<1.0) mg/dL Assessment and Plan (1) Allergy to multiple antibiotics Current Visit: No Status: Acute Code(s): Z88.1 - ALLERGY STATUS TO OTHER ANTIBIOTIC AGENTS SNOMED Code(s): 910828303 (2) Leukocytosis Current Visit: No Status: Acute Code(s): D72.829 - ELEVATED WHITE BLOOD CELL COUNT, UNSPECIFIED SNOMED Code(s): 396776441 Plan: 1patient with a leukocytosis in this patient who did have multiple comorbidities presenting with admitted to the hospital with the back pain which apparently has been chronic for and orthopedics has been consulted patient did have respiratory symptoms of cough and bringing up some yellow sputum chest x- ray with evidence of bibasilar infiltrate with a question of possible pulmonary source 2-patient with multiple antibiotic ALLERGIES that would limit the number of antibiotic safe to use 3-we will wait for the procalcitonin finalized, blood culture currently pending 4-patient did have improvement in the white count, to continue with Rocephin while waiting for the workup to be completed Dictation was produced using [employer] dictation software. please excuse any grammatical, word or spelling errors. Time with Patient: Less than 30
--- NOTE | 2024-03-21 14:52 | P.PN ---
Subjective Progress Note Date: 03/21/24 Principal diagnosis: Reason for follow-up leukocytosis Patient is a 68-year-old female with a past medical history significant for fibromyalgia COPD heart failure asthma osteoarthritis PE patient presenting to the hospital for evaluation of back pain and numbness, patient was noticed to have elevated white count chest x-ray with bibasilar atelectasis versus infiltrate prompted this consultation. On today's evaluation that is 03/21/2024, Patient is afebrile patient is currently on room air and denies having any shortness of breath, the patient denies any chest pain or any worsening cough, the patient denies any nausea vomiting did not have any abdominal pain and no diarrhea, still complaining of back pain but no worsening. Patient white count normalized to 9.61, creatinine 0.6 cultures currently pending Objective - Vital Signs Vital signs: Vital Signs Temp 97.9 F 03/21/24 12:24 Pulse 76 03/21/24 12:24 Resp 20 03/21/24 12:24 BP 170/75 03/21/24 12:24 Pulse Ox 95 03/21/24 12:24 FiO2 Intake & Output 03/20/24 03/21/24 03/21/24 18:59 06:59 18:59 Intake Total 240 Balance 240 Intake: Oral 240 Other: # Voids 1 - Exam GENERAL DESCRIPTION: An elderly female lying in bed in no distress RESPIRATORY SYSTEM: Unlabored breathing , decreased breath sounds at bases HEART: S1 S2 regular rate and rhythm , ABDOMEN: Soft , no tenderness EXTREMITIES: No edema feet - Labs CBC & Chem 7: 03/21/24 05:55 03/21/24 05:55 Labs: Abnormal Lab Results - Last 24 Hours (Table) 03/20/24 03/21/24 03/21/24 Range/Units 03:06 05:55 05:55 RBC 3.80 L (4.10-5.20) X 10*6/uL Hgb 11.8 L (12.0-15.0) g/dL MCV 97.9 H (80.0-97.0) FL MCHC 31.7 L (32.0-37.0) g/dL Immature Gran # 0.05 H (0.00-0.04) X 10*3/uL BUN/Creatinine Ratio 21.67 H (12.00-20.00) Ratio C-Reactive Protein 7.20 H (0.00-0.80) mg/dL Microbiology - Last 24 Hours (Table) 03/19/24 15:50 Blood Culture - Preliminary Blood Assessment and Plan (1) Allergy to multiple antibiotics Current Visit: No Status: Acute Code(s): Z88.1 - ALLERGY STATUS TO OTHER ANTIBIOTIC AGENTS SNOMED Code(s): 120465019 (2) Leukocytosis Current Visit: No Status: Acute Code(s): D72.829 - ELEVATED WHITE BLOOD CELL COUNT, UNSPECIFIED SNOMED Code(s): 190471128 Plan: 1patient with a leukocytosis in this patient who did have multiple comorbidities presenting with admitted to the hospital with the back pain which apparently has been chronic for and orthopedics has been consulted patient did have respiratory symptoms of cough and bringing up some yellow sputum chest x- ray with evidence of bibasilar infiltrate with a question of possible pulmonary source 2-patient with multiple antibiotic ALLERGIES that would limit the number of antibiotic safe to use 3-still waiting for the procalcitonin finalized, blood culture currently pending, MRI of the cervical and lumbar spine is currently pending 4-patient did have normalization of the white count continue with the Rocephin while waiting for the workup to be completed Dictation was produced using [employer] dictation software. please excuse any grammatical, word or spelling errors. Time with Patient: Less than 30
--- NOTE | 2024-03-21 15:47 | P.PN ---
Subjective Progress Note Date: 03/21/24 Interval History: 88-year-old female with past medical history significant for asthma, CHF, also fibromyalgia, COPD, GERD, hypertension, history of PE, history of hypothyroidism, cervical stenosis who presented to ER with a complaint of back pain and numbness. Patient has been in the hospital previously for the similar complaints. Patient reported that she follows orthopedic as outpatient and has been told that she is not a surgical candidate for her degenerative disc disease. Patient reported that she has chronic back pain, radiating to L left lower extremity, sharp in nature, now progressively worsening throughout the week. Patient denied any new injuries or traumas. Patient also reported cr amping and numbness in tingling sensation in the epigastric area. Patient also reported that she is having pain in the upper back, neck, scalp, patient reported numbness rather than pain in those areas. Patient denied any saddle anesthesia, bowel or bladder incontinence. Patient denied any fever or chills. Patient is a poor historian, very anxious, tearful due to anxiety, did not seem to be in excruciating pain. Patient reported that she has COPD and wears 4 L oxygen at baseline. Vitals: Afebrile, pulse rate 77, respiratory rate 18, blood pressure 141/80, saturating 92% on 3 to 4 L. Labs: WBCs 18.4, hemoglobin 12.5, platelets 251. Sodium 129, potassium 4.3, creatinine 0.43, BUN 12, AST 43, ALT 49, normal bilirubin and alkaline phosphatase. UA unremarkable. 03/19--patient was seen and examined today. On 3 L baseline oxygen. Vital stable. Afebrile. Sodium improved to 132, creatinine stable 0.5. CBC report not available yet. Pulmonary and ID consulted and following. Patient currently on Rocephin. Awaiting orthopedic evaluation. 03/20--patient was seen and examined today. Patient complaining of anxiety, tearful. Complaining of neck pain and back pain. Pulmonary following. Neurology recommended MRI cervical spinepending. Orthopedic spine recommended to continue conservative measures, await cervical spine MRI. Psychiatry consulted. 03/21--patient was seen and examined today, patient was very anxious and tearful. MRI lumbar thoracic and cervical spine pending. WBC count has improved. Currently on Rocephin per infectious disease. Psychiatry consulted, pending evaluation. Assessment and plan: Chronic back pain: Presented with worsening of chronic back pain, radiating to left lower extremity. Monitor with neurochecks. Pain control as needed Discussed safe opioid use with the patient Orthopedic consulted, follows Dr. Sotelo--- Neurology consultedrecommended MRI cervical spine,, thoracic and lumbar spine. B12 folate MMA, B6, A1c, ESR ESR CRP JIM RF. Gabapentin, [place] CT lumbar spine 03/13/2024 showed severe scoliosis with severe degenerative disc disease at all levels, disc herniation L3-4, L4-5 and L5-S1 with severe canal stenosis, multiple foraminal encroachment, bilateral renal calculi. MRI cervical thoracic and lumbar spine pending. Leukocytosis: Proving Pleural effusion: COPD: Chronic hypoxic respiratory failure: 3 to 4 L oxygen at baseline Continue inhalers/bronchodilator protocol Currently on Rocephin Infectious disease consulted Pulmonary consulted Hyponatremia: Improving with IVF Hypovolemic. Hypertension: Resume home meds Severe anxiety: Continue home meds As needed Ativan Psychiatry consulted DVT prophylaxis Subcutaneous heparin PHYSICAL EXAMINATION: GENERAL: The patient is A&O x3, NAD. Anxious. HEENT: EOMI, Sclerae anicteric, Moist Mucous membranes Neck: Supple, Non tender, No JVD PULMONARY: Equal breath souds B/L, No wheezing, No crackles. CARDIOVASCULAR: S1, S2 present. No murmurs, rubs, or gallops. ABDOMEN: Soft, nontender, nondistended, normoactive bowel sounds. No guarding or rebound tenderness. MUSCULOSKELETAL: No edema, No cyanosis. No clubbing. Normal ROM. Intact peripheral pulses. EXTREMITIES: No cyanosis, clubbing, or pedal edema. NEUROLOGICAL: CN 2-12 grossly intact. No FND Skin: No Rash REVIEW OF SYSTEMS: CONSTITUTIONAL: No fever or chills. CARDIOVASCULAR: No chest pain, palpitations or syncope. PULMONARY: No shortness of breath, no cough, sore throat. GASTROINTESTINAL: No nausea, vomiting, diarrhea, abdominal pain. : No Dysuria, urgency, frequency. Extremities: Complains of joint pains, body aches, back pain, lower extremity numbness, upper extremity pain and numbness NEUROLOGICAL: No headaches, no weakness, or numbness Dictation was produced using [employer] dictation software. please excuse any grammatical, word or spelling errors. Objective - Vital Signs Vital signs: Vital Signs Temp 97.9 F 03/21/24 12:24 Pulse 76 03/21/24 12:24 Resp 20 03/21/24 12:24 BP 170/75 03/21/24 12:24 Pulse Ox 95 03/21/24 12:24 FiO2 Intake & Output 03/20/24 03/21/24 03/21/24 18:59 06:59 18:59 Intake Total 240 Balance 240 Intake: Oral 240 Other: # Voids 1 - Labs CBC & Chem 7: 03/21/24 05:55 03/21/24 05:55 Labs: Abnormal Lab Results - Last 24 Hours (Table) 03/21/24 03/21/24 Range/Units 05:55 05:55 RBC 3.80 L (4.10-5.20) X 10*6/uL Hgb 11.8 L (12.0-15.0) g/dL MCV 97.9 H (80.0-97.0) FL MCHC 31.7 L (32.0-37.0) g/dL Immature Gran # 0.05 H (0.00-0.04) X 10*3/uL BUN/Creatinine Ratio 21.67 H (12.00-20.00) Ratio Microbiology - Last 24 Hours (Table) 03/19/24 15:50 Blood Culture - Preliminary Blood
--- NOTE | 2024-03-21 16:59 | P.PN ---
Subjective Progress Note Date: 03/21/24 On today's evaluation of [id number], the patient is being seen follow-up. No major respiratory difficulties and her overall respiratory status is unchanged. She is complaining of pain in her back and ongoing issues with numbness and tingling and weakness in lower extremities. Based on that, the patient was given MRI of the spine and the results are still pending for now. In terms of respiratory status, her condition is stable. She is on room air oxygen. She remains on DuoNeb nebulized treatment [id number] and she is also on Symbicort as maintenance. She is taking [place] for pain control. She is anxious. She is tearful. This psychiatry consultation was also obtained. Noted the CT scan of the lumbar spine that was done on 03/13/2024 showed severe scoliosis with degenerative disc disease at multiple levels. The patient also had severe canal stenosis with multiple foraminal encroachment and bilateral renal calculi. Objective - Vital Signs Vital signs: Vital Signs Temp 97.9 F 03/21/24 12:24 Pulse 76 03/21/24 12:24 Resp 20 03/21/24 12:24 BP 170/75 03/21/24 12:24 Pulse Ox 95 03/21/24 12:24 FiO2 Intake & Output 03/20/24 03/21/24 03/21/24 18:59 06:59 18:59 Intake Total 240 Balance 240 Intake: Oral 240 Other: # Voids 1 - Exam GENERAL EXAM: Alert, anxious at times, 68-year-old female, on room air oxygen, comfortable in no apparent distress. HEAD: Normocephalic. EYES: Normal reaction of pupils, equal size. NOSE: Clear with pink turbinates. THROAT: No erythema or exudates. NECK: No masses, no JVD. CHEST: No chest wall deformity. LUNGS: Equal air entry with no crackles, wheeze, rhonchi or dullness. CVS: S1 and S2 normal with no audible murmur, regular rhythm. ABDOMEN: No hepatosplenomegaly, normal bowel sounds, no guarding or rigidity. SPINE: No scoliosis or deformity SKIN: No rashes CENTRAL NERVOUS SYSTEM: No focal deficits, tone is normal in all 4 extremities. EXTREMITIES: There is no peripheral edema. No clubbing, no cyanosis. Peripheral pulses are intact. - Labs CBC & Chem 7: 03/21/24 05:55 03/21/24 05:55 Labs: Abnormal Lab Results - Last 24 Hours (Table) 03/21/24 03/21/24 Range/Units 05:55 05:55 RBC 3.80 L (4.10-5.20) X 10*6/uL Hgb 11.8 L (12.0-15.0) g/dL MCV 97.9 H (80.0-97.0) FL MCHC 31.7 L (32.0-37.0) g/dL Immature Gran # 0.05 H (0.00-0.04) X 10*3/uL BUN/Creatinine Ratio 21.67 H (12.00-20.00) Ratio Microbiology - Last 24 Hours (Table) 03/19/24 15:50 Blood Culture - Preliminary Blood Assessment and Plan Plan: Acute on chronic back pain with paresthesias of the lower extremities, awaiting further evaluation with an MRI of the spine. The patient has severe scoliosis and multilevel degenerative disc disease and significant canal stenosis Excessive anxiety, awaiting psychiatric evaluation Chronic hypoxic respiratory failure secondary to chronic obstructive pulmonary disease Hyponatremia, improving Leukocytosis, currently on ceftriaxone, procalcitonin pending, white cell count is improved. Patient is on empiric antibiotic coverage with IV Rocephin. Bipolar disorder with significant anxiety Fibromyalgia History of chronic tobacco dependence Hypothyroidism Hypertension Marijuana use Plan: MRI of the spine is still pending Continue Symbicort, albuterol, Singulair Procalcitonin pending Psychiatry consult pending pain control with [place] Currently stable on oxygen
--- NOTE | 2024-03-21 18:02 | MR ---
EXAMINATION TYPE: MR cspine/lspine wo con DATE OF EXAM: 03/21/2024 2:00 PM CLINICAL INDICATION: Female, 68 years old with history of Occipital neuralgia, spinal stenosis;, Occi pital neuralgia, spinal stenosis COMPARISON: 03/21/2024 TECHNIQUE: Multi planar, multi sequence imaging was performed utilizing: T1-weighted, T2-weighted, a nd turbo inversion recovery imaging of the cervical and lumbar spine. MR contrast: IV Contrast: cc , None. FINDINGS: CERVICAL: Alignment: The cervical vertebral bodies have preserved heights. There is increased lordotic alignmen t particularly at C3 with moderate to severe stenosis. Bones: Bone signal is within normal limits. No abnormal bone marrow edema on inversion recovery seque nces. Cord: There is thought to be abnormal cord signal in the area of severe stenosis described below at t he level of C3 which is poorly evaluated due to motion and patient positioning. The spinal cord is un remarkable with regards to their signal intensity and morphology. Discs: Multilevel disc desiccation is present. C2-C3/C3-C4: At the mid level of the C3 vertebral body is severe spinal canal stenosis secondary to i ncreased lordotic curvature. Facet and uncovertebral joint arthropathy with mild C2-C3 and mild C3-C4 neural foraminal stenosis bilaterally. C4-C5: No significant disc pathology. The spinal canal is patent. Bilateral facet and uncovertebral joint arthropathy are present with moderate right and mild left neural foraminal stenosis. C5-C6: A disc osteophyte complex is present with moderate to severe spinal canal stenosis. Bilateral facet and uncovertebral joint arthropathy are present with moderate to severe bilateral neural julianna inal stenosis. C6-C7: No significant disc pathology. The spinal canal is patent. Bilateral facet and uncovertebral joint arthropathy are present with mild bilateral neural foraminal stenosis. C7-T1: No significant disc pathology. The spinal canal is patent. Bilateral facet and uncovertebral joint arthropathy are present with mild bilateral neural foraminal stenosis. Other: None. LUMBAR: Alignment: The lumbar vertebral bodies have preserved heights and scoliosis alignment. Cord: The conus medullaris and the distal spinal cord appear unremarkable with regards to their signa l intensity and morphology. Bones/Discs: Mild degeneration changes throughout the spine with osteophyte formation and facet joint arthropathy. Intervertebral disc signal is maintained. T12-L1: No evidence of significant spinal canal stenosis or neural foraminal stenosis. L1-L2: Disc bulge and facet joint arthropathy result in mild spinal canal and mild left and moderate to severe right neural foraminal stenosis. L2-L3: Disc bulge and facet joint arthropathy result in mild spinal canal and severe right and mild-t o-moderate left neural foraminal stenosis. L3-L4: Disc bulge and facet joint arthropathy result in mild spinal canal and moderate bilateral neur al foraminal stenosis. L4-L5: Disc bulge and facet joint arthropathy result in mild spinal canal and moderate right and jaymie re left neural foraminal stenosis. L5-S1: Disc bulge and facet joint arthropathy result in mild spinal canal and moderate right and sev ere left neural foraminal stenosis. No significant spinal canal or neural foraminal stenosis in the remainder of the visualized levels. Other findings: None. IMPRESSION: Cervical: 1. At the mid level of the C3 vertebral body is severe spinal canal stenosis secondary to increased lordotic curvature. There may be some abnormal cord signal which is difficult to evaluate given patie nt positioning and motion. 2. Moderate to severe spinal canal stenosis at the level C5-C6. 3. Degeneration with moderate to severe bilateral C5-C6 neural foraminal stenosis with moderate spin al canal stenosis. Lumbar: 1. Multilevel degeneration of the spine with scoliosis with multilevel neural foraminal stenosis as described above. Severe neural foraminal stenosis including at L2-L3 on the right L4-L5 on the left, L5-S1 on the left 2. No evidence for spinal fracture. 3. No evidence for high-grade spinal canal stenosis.
[2024-03-21] MEDS: LORazepam 1 MG TAB PO ONE (22:03)
[2024-03-22 07:54] VITALS: RESP 16
--- NOTE | 2024-03-22 12:51 | P.PN ---
Subjective Progress Note Date: 03/22/24 Principal diagnosis: Chronic low back pain, chronic neck pain Patient was evaluated at bedside today, she is resting in her hospital chair. Initial exam patient was very calm, toward the middle and end of exam patient was very anxious once again and crying. Patient did have the MRI of the cervical and lumbar spine yesterday. Patient has significant spinal stenosis in the C2-C3 and C3/C4 region, she has varying degrees of neuroforaminal stenosis throughout the remaining of the cervical spine. The lumbar spine MRI confirmed what was found on CT scan of the lumbar spine with multiple levels of lumbar spondylosis, varying degrees of neuroforaminal and central canal stenosis along with severe scoliotic curve. Patient became very upset on exam and demanding to leave the hospital, she does not want to be here any longer. She is able to stand up on her own and ambulate throughout the room with a walker, she is moving all the extremities with no difficulty. She has no acute myelopathic signs at this time. She denies any loss of bowel or bladder function. Objective - Vital Signs Vital signs: Vital Signs Temp 97.7 F 03/22/24 07:19 Pulse 73 03/22/24 07:19 Resp 16 03/22/24 07:19 BP 163/74 03/22/24 07:19 Pulse Ox 96 03/22/24 07:19 FiO2 Intake & Output 03/21/24 03/22/24 03/22/24 18:59 06:59 18:59 Intake Total 50 Balance 50 Intake: Intake, IV Titration 50 Amount cefTRIAXone 1 gm In 50 Sodium Chloride 0.9% 50 ml @ 100 mls/hr IVPB Q24HR [facility] Rx#:[id number] Other: Voiding Method External Catheter # Voids 2 - Exam Gen: AOx3, NAD VSS stable at this time Integument: No open lesions, sores, areas of soft tissue swelling or erythema present throughout the cervical, thoracic or lumbar spine Palpation: Patient demonstrates generalized paraspinal pain in the cervical and lumbar region ROM: Full range of motion in all major muscle groups of the bilateral upper and lower extremities, no focal deficits are appreciated Sensory Exam: Senory exam to light touch is intact C5-T1 Senosry exam to light touch is intact L2-S1 Motor: 4+/5 strength appreciated the bilateral upper extremities with shoulder elevation, shoulder abduction, elbow extension, elbow flexion, wrist extension, wrist flexion, design cell engineer 4+5 strength appreciated the bilateral lower extremities with hip flexion, knee extension, knee flexion, plantarflexion, dorsiflexion, EHL, FHL Reflexes: Negative Dallas's bilaterally Negative clonus bilaterally Special Test: Negative straight leg raise bilaterally Negative logroll maneuver bilaterally - Labs CBC & Chem 7: 03/21/24 05:55 03/21/24 05:55 Labs: Microbiology - Last 24 Hours (Table) 03/19/24 15:50 Blood Culture - Preliminary Blood Assessment and Plan Assessment: Chronic low back pain Chronic neck pain Bilateral upper and lower extremity paresthesias Scoliosis Multilevel cervical spondylosis Significant central canal stenosis C2-C3, C3-C4 Multilevel cervical neuroforaminal stenosis Multilevel lumbar spondylosis Multilevel lumbar central canal and neuroforaminal stenosis Leukocytosis Anxiety Other medical comorbidities Plan: Patient continues to demonstrate no acute myelopathic signs, she is able to ambulate with minimal assistance, she is moving all the extremities with no difficulties I definitely feel that this patient's anxiety is not controlled at this point and she needs a full psychiatric workup No orthopedic spine surgical intervention is recommended at this time Other medical specialty recommendations appreciated DVT prophylaxis per primary medical service Weight-bear as tolerated with walker Recommend follow-up in the outpatient setting, please contact our orthopedic service with any further questions regarding this patient Time with Patient: Less than 30
--- NOTE | 2024-03-22 12:54 | P.PN ---
Subjective Progress Note Date: 03/21/24 Patient was seen for a follow-up. Patient states she is not feeling any better. Patient continues to cry continuously. Patient continues to be super anxious. Objective - Vital Signs Vital signs: Vital Signs Temp 97.7 F 03/22/24 07:19 Pulse 73 03/22/24 07:19 Resp 16 03/22/24 07:19 BP 163/74 03/22/24 07:19 Pulse Ox 96 03/22/24 07:19 FiO2 Intake & Output 03/21/24 03/22/24 03/22/24 18:59 06:59 18:59 Intake Total 50 Balance 50 Intake: Intake, IV Titration 50 Amount cefTRIAXone 1 gm In 50 Sodium Chloride 0.9% 50 ml @ 100 mls/hr IVPB Q24HR [facility] Rx#:[id number] Other: Voiding Method External Catheter # Voids 2 - Exam Essentially unchanged. Detailed examination deferred. - Labs CBC & Chem 7: 03/21/24 05:55 03/21/24 05:55 Labs: Microbiology - Last 24 Hours (Table) 03/19/24 15:50 Blood Culture - Preliminary Blood Assessment and Plan Assessment: * New onset bilateral occipital headache, paresthesias in the occipital nerve distribution and posterior neck pain, likely due to occipital neuralgia/neuropathy. MRI of the cervical spine revealed severe spinal canal stenosis secondary to increased lordotic curvature at C3 vertebral body. Probable cervical myelopathy. * Chronic lower back pain, with significant neural foraminal stenosis at mult iple levels without central spinal stenosis as per MRI report. * Scoliosis. * Hyponatremia * Elevated liver enzymes * Leukocytosis * Tobacco use * Severe anxiety disorder * Chronic pain * Polypharmacy Plan: * MRI of the cervical spine revealed at the mid level of C3 vertebral body, is severe spinal canal stenosis secondary to increased lordotic curvature. There may be some abnormal cord signal which is difficult to evaluate given patient positioning and motion. Moderate to severe spinal canal stenosis at the level C5-C6. Degeneration with moderate to severe bilateral C5-C6 neural foraminal stenosis with moderate spinal canal stenosis. * Patient needs follow-up with orthopedic spine. Patient has severe spinal stenosis with myelopathy. Patient possibly a candidate for cervical decompression. * MRI lumbar spine revealed multilevel degeneration of the spine with scoliosis with multilevel neural foraminal stenosis. Severe neural foraminal stenosis including at L2-L3 on the right, L4-L5 on the left, L5-S1 on the left. No evidence for high-grade spinal canal stenosis. * B12 498, folate 15.9, hemoglobin A1c 6.2, ESR 19, CRP 7.5, RF<15. JIM negative, rheumatoid factor negative, MMA, vitamin B6 pending * Treatment of anxiety disorder as per psychiatry. * Start gabapentin 300 mg twice daily for possible occipital neuralgia. Also will help with neuropathic pains in the legs. * Recommend complete tobacco cessation. * DVT prophylaxis: Patient on heparin 5000 units subcu every 12 hour.
--- NOTE | 2024-03-22 13:42 | P.CN ---
Psychiatric Consult - . Consult date: 03/22/24 Consult:: 03/22/24 12:49 IDENTIFYING DATA: This patient is a 68-year-old female, currently lives with her , she has no kids, she lives in a house, she collect Social Security REASON FOR REFERRAL: Psychiatry was consulted for "uncontrolled anxiety" HISTORY OF PRESENT ILLNESS: The patient presented to the hospital initially for back pain and neck pain, was reporting paresthesias. Patient apparently has been tearful since then having "uncontrolled anxiety". Patient was seen today at the bedside, she was restless, states that she is "scared" and also states that this has been going on for the past couple of weeks. Repeatedly stated to remote mortgage underwriter that she wants to go home, she appeared to be impulsive and difficult to redirect during conversation and also irritable at times. Believes that she is being "locked up" was endorsing some paranoia. She did claim that she still dealing with the back and neck pain, claims that she also has difficulties with finances at home. States that her mood has been "up-and-down" and also claims that she has high levels of anxiety at this time. Claims that her sleep is poor about 3 to 4 hours a night, states that her appetite is also poor. At this time patient denies any suicidal or homical ideations, intent or plan. Patient denies any auditory, visual hallucinations and denies any paranoia or delusions. Patients admits to using marijuana regularly, denies any other recreational drug use PAST PSYCHIATRIC HISTORY: Patient has a a history of bipolar disorder, claims that she was diagnosed over 30 yrs ago. He is currently on Depakote, Zyprexa and also Lamictal. Claims that she was psychiatrically hospitalized several years ago on the mental health unit in this hospital. States that she follows with her psychiatrist Dr. Rodriguez. Patient denies any history of suicide a ttempts in the past. PAST MEDICAL HISTORY: As per medicine H&P ALLERGIES: as per EMR. CHEMICAL DEPENDENCY HISTORY: as per HPI. 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 Denies any legal history, states that she has no kids, lives in a house with her , collects Social Security. MENTAL STATUS EXAM: General Appearance: Patient appears to be mildly overweight, stated age is alert, irritable at times, argumentative. Patient appears to have fair hygiene and grooming wearing hospital gown with poor eye contact. Behavior: Patient appears to be irritable, restless. Speech: Patient's speech is fluent and nonpressured. Loud at times. Mood/Affect: Patient reports their mood is "up-and-down", affect is congruent labile Suicidality/Homicidality: Patient denies having any suicidal or homicidal ideation intent or plan. Perceptions: Patient denies any visual hallucinations and denies any auditory hallucinations Though content/process: There is no evidence of any delusional thought content and thought process is linear and goal-directed. [place], focused on discharge Memory and concentration: AOX3, grossly intact for the purposes of this session. Can spell "WORLD" backwards Judgment and insight: Poor IMPRESSIONS: Bipolar disorder unspecified Cannabis use disorder PLAN: -At this time patient DOES NOT meet criteria for inpatient psychiatric admission. -Would recommend the following medication changes/additions: Increase Depakote to 250 mg twice daily for mood stabilization, continue with Lamictal 150 mg twice daily for mood stabilization, increase Zyprexa to 5 mg daily +20 mg nightly for sleep/mood stabilization -Memorial Designer spoke with patient about substance abuse and the harmful effects on medical and mental health, patient verbally understood and agreed. -Communicated plan to patient's nurse -Will continue to follow along as needed -Please contact with any questions. 03/22/24 13:37
[2024-03-22] MEDS: LORazepam 2 MG/ML INJ IV STA (14:33)
[2024-03-22] MEDS: OLANZapine 5 MG TAB PO SCH (14:34)
[2024-03-22] MEDS: DIVALPROEX ER 250 MG TAB.ER.24H PO SCH (14:34)
--- NOTE | 2024-03-22 15:56 | P.PN ---
Subjective Progress Note Date: 03/22/24 Patient is an 68-year-old female with past medical history significant for asthma, CHF, also fibromyalgia, COPD, GERD, hypertension, history of PE, history of hypothyroidism, cervical stenosis who presented to ER with a complaint of back pain and numbness. Patient has been in the hospital previously for the similar complaints. Patient reported that she follows orthopedic as outpatient and has been told that she is not a surgical candidate for her degenerative disc disease. Patient reported that she has chronic back pain, radiating to L left lower extremity, sharp in nature, now progressively worsening throughout the week. Patient denied any new injuries or traumas. Patient also reported cramp ing and numbness in tingling sensation in the epigastric area. Patient also reported that she is having pain in the upper back, neck, scalp, patient reported numbness rather than pain in those areas. Patient denied any saddle anesthesia, bowel or bladder incontinence. Patient denied any fever or chills. Patient is a poor historian, very anxious, tearful due to anxiety, did not seem to be in excruciating pain. Patient reported that she has COPD and wears 4 L oxygen at baseline. Vitals: Afebrile, pulse rate 77, respiratory rate 18, blood pressure 141/80, saturating 92% on 3 to 4 L. Labs: WBCs 18.4, hemoglobin 12.5, platelets 251. Sodium 129, potassium 4.3, creatinine 0.43, BUN 12, AST 43, ALT 49, normal bilirubin and alkaline phosphatase. UA unremarkable. 03/19. Patient was seen and examined today. On 3 L baseline oxygen. Vital stable. Afebrile. Sodium improved to 132, creatinine stable 0.5. CBC report not available yet. Pulmonary and ID consulted and following. Patient currently on Rocephin. Awaiting orthopedic evaluation. 03/20. Patient was seen and examined today. Patient complaining of anxiety, tearful. Complaining of neck pain and back pain. Pulmonary following. Neurology recommended MRI cervical spinepending. Orthopedic spine recommended to continue conservative measures, await cervical spine MRI. Psychiatry consulted. 03/21. Patient was seen and examined today, patient was very anxious and tearful. MRI lumbar thoracic and cervical spine pending. WBC count has improved. Currently on Rocephin per infectious disease. Psychiatry consulted, pending evaluation. 03/22. Patient was seen and examined today. She states she is anxious, wants to go home, and is tearful. WBCs 9.61, decreased from yesterday. Hemoglobin 11.8, sodium 135, creatinine 0.6, and BUN 13. Currently on Rocephin per infectious disease. Psychiatry consulted. MRI cervical thoracic and lumbar spine on 03/21/2024: Mid level of C3 vertebral body severe spinal canal stenosis secondary to increased lordotic curvature, moderate to severe spinal canal stenosis at C5-C6, degeneration with moderate to severe bilateral C5-C6 neural foraminal stenosis with moderate spinal canal stenosis; multilevel degeneration of the spine with scoliosis with multilevel neural foraminal stenosis, severe for neural foraminal stenosis including L2-L3 on the right L4-L5 on the left L5- S1 on the left, no evidence of spinal fracture or high-grade spinal canal stenosis. Vitamin B12 498, folate 15.9, CRP 7.2, A1c 6.2, JIM negative, rheumatoid factor <15, ESR 19. DVT prophylaxis: Subcutaneous heparin REVIEW OF SYSTEMS: CONSTITUTIONAL: No fever or chills. CARDIOVASCULAR: No chest pain, palpitations or syncope. PULMONARY: No shortness of breath, no cough, sore throat. GASTROINTESTINAL: No nausea, vomiting, diarrhea, abdominal pain. : No Dysuria, urgency, frequency. Extremities: Complains of joint pains, body aches, back pain, lower extremity numbness, upper extremity pain and numbness NEUROLOGICAL: No headaches, no weakness, or numbness PHYSICAL EXAMINATION: GENERAL: The patient is A&O x3, NAD. Anxious. HEENT: EOMI, Sclerae anicteric, Moist Mucous membranes Neck: Supple, Non tender, No JVD PULMONARY: Equal breath souds B/L, No wheezing, No crackles. CARDIOVASCULAR: S1, S2 present. No murmurs, rubs, or gallops. ABDOMEN: Soft, nontender, nondistended, normoactive bowel sounds. No guarding or rebound tenderness. MUSCULOSKELETAL: No edema, No cyanosis. No clubbing. Normal ROM. Intact peripheral pulses. EXTREMITIES: No cyanosis, clubbing, or pedal edema. NEUROLOGICAL: CN 2-12 grossly intact. No FND Skin: No Rash Assessment and plan: Chronic back pain: Presented with worsening of chronic back pain, radiating to left lower extremity Monitor with neurochecks Pain control as needed Discussed safe opioid use with the patient Orthopedic consulted, follows Dr. Alex Neurology consulted Gabapentin, [place] CT lumbar spine 03/13/2024 showed severe scoliosis with severe degenerative disc disease at all levels, disc herniation L3-4, L4-5 and L5-S1 with severe canal stenosis, multiple foraminal encroachment, bilateral renal calculi. Neurology consulted - MRI cervical thoracic and lumbar spine on 03/21/2024: Mid level of C3 vertebral body severe spinal canal stenosis secondary to increased lordotic curvature, moderate to severe spinal canal stenosis at C5-C6, degeneration with moderate to severe bilateral C5-C6 neural foraminal stenosis with moderate spinal canal stenosis; multilevel degeneration of the spine with scoliosis with multilevel neural foraminal stenosis, severe for neural foraminal stenosis including L2-L3 on the right L4-L5 on the left L5-S1 on the left, no evidence of spinal fracture or high-grade spinal canal stenosis. Leukocytosis: Improved Currently maintained on IV Rocephin Awaiting infectious disease recommendations Pleural effusion: Chronic hypoxic respiratory failure: 3 to 4 L oxygen at baseline Continue inhalers/bronchodilator protocol Currently on Rocephin Infectious disease consulted Pulmonary consulted Hyponatremia: Improving with IV fluids Hypovolemic Hypertension: Resume home meds Severe anxiety: Continue home meds As needed [facility] Psychiatry consulted Objective - Vital Signs Vital signs: Vital Signs Temp 97.7 F 03/22/24 07:19 Pulse 73 03/22/24 07:19 Resp 16 03/22/24 07:19 BP 163/74 03/22/24 07:19 Pulse Ox 96 03/22/24 07:19 FiO2 Intake & Output 03/21/24 03/22/24 03/22/24 18:59 06:59 18:59 Intake Total 50 Balance 50 Intake: Intake, IV Titration 50 Amount cefTRIAXone 1 gm In 50 Sodium Chloride 0.9% 50 ml @ 100 mls/hr IVPB Q24HR [facility] Rx#:[id number] Other: Voiding Method External Catheter # Voids 2 - Labs CBC & Chem 7: 03/21/24 05:55 03/21/24 05:55 Labs: Abnormal Lab Results - Last 24 Hours (Table) 03/21/24 Range/Units 05:55 BUN/Creatinine Ratio 21.67 H (12.00-20.00) Ratio Microbiology - Last 24 Hours (Table) 03/19/24 15:50 Blood Culture - Preliminary Blood
[2024-03-22 16:09] VITALS: BP 167/76; PULSE 75; TEMP 98.4
--- NOTE | 2024-03-22 16:42 | MR ---
INDICATION: Patient age:Female; 68 years old; Reason for study: Back pain, weakness; PHH. COMPARISON: MR cervical and lumbar spine 03/21/2024. TECHNIQUE: Multi planar, multi sequence imaging was performed utilizing: T1-weighted, T2-weighted, an d turbo inversion recovery imaging of the thoracic spine. The patient was not given Gadolinium. FINDINGS: Motion degraded examination. The thoracic vertebral bodies have preserved heights. No spondylolisthesis. Mild dextrocurvature of t he thoracic spine. Few scattered T2/T1 hyperintense vertebral body lesions likely representing benign vertebral hemangiomas. Largest is identified within the T10 vertebral body. The remaining osseous st ructures have normal signal intensity. Central disc protrusion at T2-T3 with mild to moderate effacement of the anterior thecal sac (series 901, image 24). No significant central canal narrowing. Central disc protrusion at T3-T4 with cranial extrusion approximately 5 mm along the posterior aspect of the T3 vertebral body with mild effacement of the anterior thecal sac (series 901, image 19). No significant central canal narrowing. Central disc protrusion at T5-T6 without effacement of the intrathecal sac. No significant central ca nal narrowing. Central disc protrusion at T6-T7 with cranial extrusion approximately 3 mm on the posterior aspect of the T7 vertebral body. Causes mild effacement of the anterior thecal sac. No significant central can al narrowing. Tiny left paracentral disc protrusion at T7-T8 without significant effacement of the anterior thecal sac. No significant central canal narrowing. Tiny left right paracentral disc protrusion at T8-T9 without significant effacement of the anterior t hecal sac. No significant central canal narrowing. T9-T10 right paracentral disc protrusion with cranial extrusion approximately 10 mm long the posterio r aspect of the T9 vertebral body. This results in moderate effacement of the anterior thecal sac. Mo derate central canal narrowing. T10-T11 left paracentral disc protrusion without significant effacement of the anterior thecal sac. N o significant central canal narrowing. T11-T12 broad-based disc bulge with mild central canal narrowing. Thoracic spinal cord demonstrates normal signal intensity. Multilevel disc desiccation. No significan t neural foraminal stenosis at any thoracic level. Multilevel osteophytosis. Trace right pleural effusion with adjacent right lower lung consolidative opacities. Dilated common b ile duct measuring up to 1.4 cm redemonstrated. IMPRESSION: 1. Multilevel disc herniations as described above. Most prominent at T3-T4, T6-T7, and T9-T10 with e xtrusions identified. T9-T10 disc herniation results in moderate central canal stenosis. 2. Trace right pleural effusion with adjacent right lower lung consolidative opacities.
--- NOTE | 2024-03-22 17:59 | P.DS ---
Providers Date of admission: 03/21/24 09:47 Attending physician: Dominguez Woods MD Consults: 03/18/24 13:37 Consult Physician Urgent Consulting Provider: Shaw Brannon Consult Reason/Comments: pleural effusion Do you want consulting provider notified?: Yes Consult Physician Urgent Consulting Provider: Mark Alex Consult Reason/Comments: spinal canal stenosis Do you want consulting provider notified?: Yes 03/18/24 13:40 Consult Physician Urgent Consulting Provider: Briseida Mcdonald Consult Reason/Comments: Leukocytosis Do you want consulting provider notified?: Yes 03/19/24 11:40 Consult Physician Routine Consulting Provider: Jaden Leon Consult Reason/Comments: headache's Do you want consulting provider notified?: Yes 03/20/24 09:50 Consult Physician Routine Consulting Provider: Arnel Hernandez Consult Reason/Comments: Uncontrooled anxiety Do you want consulting provider notified?: Yes Primary care physician: Andrzej Wheeler Hospital Course: Hospital Course: This is a 68-year-old female patient with a known history of fibromyalgia, oxygen dependent chronic obstructive pulmonary disease, hypertension, hypothyroidism, chronic back pain. She came into the emergency room again 03/18/2024 with concerns regarding back pain with tingling, numbness, and weakness of the lower extremities not improved with home dose of Clayton. She has been in the emergency room 3 times this month with similar complaints. She was admitted for workup of an elevated white count as well as back pain, tingling, numbness, and weakness of the lower extremities. Patient was consulted by neur ology, orthopedics, pulmonary, and psychiatry. WBCs on admission 19.4. She was started on empiric Rocephin and her white count improved to 9.61. MRI of the cervical and lumbar spine on 03/21/2024 showed moderate to severe spinal canal stenosis at C5-C6 as well as neuroforaminal stenosis right L2-L3 left L4-L5, L5- S1. Per orthopedics, patient can be managed outpatient. Patient still has back pain but is otherwise hemodynamically stable. Patient to be discharged PO cefuroxime 500 mg twice daily for 7 days. Patient to be followed outpatient by orthopedics, pulmonary, and neurology for her chronic medical conditions. Discharge instructions: Patient to followup with PCP within 1 to 2 days. Followup with orthopedics, pulmonary, and neurology within 1 to 2 weeks. Continue with home medications as directed. Prescription provided for PO cefuroxime 500 mg twice daily for 7 days. Final Diagnosis: #. Chronic back pain #. Hypertension #. Severe anxiety #. Leukocytosis, unspecified Physical examination: Vital signs reviewed GENERAL: The patient is A&O x3, NAD. Anxious. HEENT: EOMI, Sclerae anicteric, Moist Mucous membranes Neck: Supple, Non tender, No JVD PULMONARY: Equal breath souds B/L, No wheezing, No crackles. CARDIOVASCULAR: S1, S2 present. No murmurs, rubs, or gallops. ABDOMEN: Soft, nontender, nondistended, normoactive bowel sounds. No guarding or rebound tenderness. MUSCULOSKELETAL: No edema, No cyanosis. No clubbing. Normal ROM. Intact peripheral pulses. EXTREMITIES: No cyanosis, clubbing, or pedal edema. NEUROLOGICAL: CN 2-12 grossly intact. No FND Skin: No Rash Patient Condition at Discharge: Stable Plan - Discharge Summary Discharge Rx Participant: Yes New Discharge Prescriptions: New Cefuroxime [Ceftin] 500 mg PO BID 7 Days #14 tab Continue Montelukast [Singulair] 10 mg PO HS Levothyroxine Sodium [Synthroid] 150 mcg PO DAILY Divalproex ER [Depakote ER] 250 mg PO HS Thiamine [Vitamin B-1] 100 mg PO DAILY@1700 Metoprolol Tartrate [Lopressor] 25 mg PO BID Ipratropium-Albuterol Nebulize [Duoneb 0.5 mg-3 mg/3 ml Soln] 3 ml INHALATION RT-QID PRN PRN Reason: Shortness Of Breath lisinopriL [Zestril] 20 mg PO DAILY clonazePAM [KlonoPIN ODT] 0.25 mg PO HS OLANZapine [ZyPREXA] 15 mg PO HS Albuterol Nebulized [Ventolin Nebulized] 5 mg INHALATION RT-QID PRN #60 each PRN Reason: Shortness Of Breath Or Wheezing Naproxen [Naprosyn] 500 mg PO BID 30 Days #60 tablet lamoTRIgine [LaMICtal] 150 mg PO BID Budesonide/Formoterol Fumarate [Symbicort 160-4.5 Mcg Inhaler] 2 puff INHALATION RT-BID Famotidine [Pepcid] 20 mg PO BID Tamsulosin [Flomax] 0.4 mg PO DAILY@1200 Ferrous Sulfate [Iron (65 MG Elemental)] 325 mg PO DAILY Albuterol Inhaler [Ventolin Hfa Inhaler] 2 puff INHALATION RT-QID PRN #1 each PRN Reason: Shortness Of Breath Melatonin 5 mg PO HS PRN PRN Reason: Insomnia Ibandronate Sodium [Boniva] 150 mg PO Q30D Acetaminophen [Tylenol Arthritis] 650 mg PO Q4HR PRN PRN Reason: Pain amLODIPine [Norvasc] 5 mg PO DAILY HYDROcodone/APAP 5-325MG [Clayton 5-325] 1 tab PO Q6HR PRN 3 Days #12 tab PRN Reason: Pain hydrOXYzine HCL [Atarax] 25 mg PO BID Folic Acid 1 mg PO DAILY@1700 Venlafaxine HCl ER [Effexor XR] 150 mg PO DAILY Discharge Medication List Montelukast [Singulair] 10 mg PO HS 12/17/13 [History] Levothyroxine Sodium [Synthroid] 150 mcg PO DAILY 03/29/20 [History] Budesonide/Formoterol Fumarate [Symbicort 160-4.5 Mcg Inhaler] 2 puff INHALATION RT-BID 06/12/21 [History] Famotidine [Pepcid] 20 mg PO BID 09/03/21 [History] Divalproex ER [Depakote ER] 250 mg PO HS 10/07/21 [History] Tamsulosin [Flomax] 0.4 mg PO DAILY@1200 10/26/21 [History] Ferrous Sulfate [Iron (65 MG Elemental)] 325 mg PO DAILY 11/13/22 [History] Ipratropium-Albuterol Nebulize [Duoneb 0.5 mg-3 mg/3 ml Soln] 3 ml INHALATION RT-QID PRN 11/13/22 [History] Metoprolol Tartrate [Lopressor] 25 mg PO BID 11/13/22 [History] Thiamine [Vitamin B-1] 100 mg PO DAILY@1700 11/13/22 [History] Albuterol Inhaler [Ventolin Hfa Inhaler] 2 puff INHALATION RT-QID PRN #1 each 11/17/22 [Rx] Ibandronate Sodium [Boniva] 150 mg PO Q30D 05/03/23 [History] Melatonin 5 mg PO HS PRN 05/03/23 [History] lisinopriL [Zestril] 20 mg PO DAILY 05/03/23 [History] Acetaminophen [Tylenol Arthritis] 650 mg PO Q4HR PRN 10/24/23 [History] amLODIPine [Norvasc] 5 mg PO DAILY 12/12/23 [History] clonazePAM [KlonoPIN ODT] 0.25 mg PO HS 12/12/23 [History] OLANZapine [ZyPREXA] 15 mg PO HS 01/22/24 [History] Albuterol Nebulized [Ventolin Nebulized] 5 mg INHALATION RT-QID PRN #60 each 01/24/24 [Rx] Naproxen [Naprosyn] 500 mg PO BID 30 Days #60 tablet 02/16/24 [Rx] HYDROcodone/APAP 5-325MG [Clayton 5-325] 1 tab PO Q6HR PRN 3 Days #12 tab 03/15/24 [Rx] Folic Acid 1 mg PO DAILY@1700 03/18/24 [History] Venlafaxine HCl ER [Effexor XR] 150 mg PO DAILY 03/18/24 [History] hydrOXYzine HCL [Atarax] 25 mg PO BID 03/18/24 [History] lamoTRIgine [LaMICtal] 150 mg PO BID 03/18/24 [History] Cefuroxime [Ceftin] 500 mg PO BID 7 Days #14 tab 03/22/24 [Rx] Follow up Appointment(s)/Referral(s): Andrzej Wheeler MD [Primary Care Provider] - 1-2 days Mark Alex DO [Doctor of Osteopathic Medicine] - 1 Week Jaden Leon MD [STAFF PHYSICIAN] - 1 Week Ana Maria Carr MD [STAFF PHYSICIAN] - 1 Week Patient Instructions/Handouts: Chronic Pain (DC) Discharge Disposition: HOME SELF-CARE
[2024-03-22] MEDS ORDERED: OLANZapine 10 MG TAB PO SCH (21:00)
--- NOTE | 2024-03-22 22:43 | P.PN ---
Subjective Progress Note Date: 03/22/24 On today's evaluation of [phone], the patient is being seen follow-up. No major respiratory difficulties and her overall respiratory status is unchanged. She is complaining of pain in her back and ongoing issues with numbness and tingling and weakness in lower extremities. Based on that, the patient was given MRI of the spine and the results are still pending for now. In terms of respiratory status, her condition is stable. She is on room air oxygen. She remains on DuoNeb nebulized treatment [id number] and she is also on Symbicort as maintenance. She is taking Elberta for pain control. She is anxious. She is tearful. This psychiatry consultation was also obtained. Noted the CT scan of the lumbar spine that was done on 03/13/2024 showed severe scoliosis with degenerative disc disease at multiple levels. The patient also had severe canal stenosis with multiple foraminal encroachment and bilateral renal calculi. 03/22/2024, patient remains quite anxious and tearful. Continues to have patient with back pain. MRI of the cervical spine and lumbar spine was noted. There is C3 vertebral body severe spinal canal stenosis and spinal lordosis, moderate to severe spinal canal stenosis at the level of C5-C6 and degenerative changes that are moderate to severe at the level of C5-C6 and moderate spinal canal stenosis. Multilevel degenerative disc changes of the spine and scoliosis is also seen. Please refer to further details based on the full MRI report. The patient will be seen by spine surgery. The patient is going to read pain control and the patient is currently on a combination of Elberta and gabapentin. In terms of respiratory status, remains bronchospastic and wheezy although less compared to yesterday. Currently on Symbicort and DuoNeb updrafts [id number]. Rest of the medications remain unchanged. Labs from yesterday was noted. proBNP level is 1650. JIM and rheumatoid factor are both negative. Objective - Vital Signs Vital signs: Vital Signs Temp 98.4 F 03/22/24 14:00 Pulse 75 03/22/24 14:00 Resp 16 03/22/24 14:00 BP 167/76 03/22/24 14:00 Pulse Ox 90 L 03/22/24 14:00 FiO2 Intake & Output 03/22/24 03/22/24 03/23/24 06:59 18:59 06:59 Intake Total 240 Balance 240 Intake: Oral 240 Other: Voiding Method External Catheter # Voids 2 1 - Exam GENERAL EXAM: Alert, anxious at times, 68-year-old female, on room air oxygen, comfortable in no apparent distress. HEAD: Normocephalic. EYES: Normal reaction of pupils, equal size. NOSE: Clear with pink turbinates. THROAT: No erythema or exudates. NECK: No masses, no JVD. CHEST: No chest wall deformity. LUNGS: Equal air entry with no crackles, wheeze, rhonchi or dullness. CVS: S1 and S2 normal with no audible murmur, regular rhythm. ABDOMEN: No hepatosplenomegaly, normal bowel sounds, no guarding or rigidity. SPINE: No scoliosis or deformity SKIN: No rashes CENTRAL NERVOUS SYSTEM: No focal deficits, tone is normal in all 4 extremities. EXTREMITIES: There is no peripheral edema. No clubbing, no cyanosis. Peripheral pulses are intact. - Labs CBC & Chem 7: 03/21/24 05:55 03/21/24 05:55 Labs: Microbiology - Last 24 Hours (Table) 03/19/24 15:50 Blood Culture - Preliminary Blood Assessment and Plan Plan: Acute on chronic back pain with paresthesias of the lower extremities, MRI of the spine was noted. The patient has scoliosis and multilevel degenerative disc disease and significant canal stenosis, multiple levels and the patient is going to be seen by spine surgery and pain control is being offered by combination of Elberta and Neurontin Excessive anxiety, psychiatry input is appreciated Chronic hypoxic respiratory failure secondary to chronic obstructive pulmonary disease Hyponatremia, improving Leukocytosis, currently on ceftriaxone, procalcitonin pending, white cell count is improved. Patient is on empiric antibiotic coverage with IV Rocephin. Bipolar disorder with significant anxiety Fibromyalgia History of chronic tobacco dependence Hypothyroidism Hypertension Marijuana use Plan: MRI of the spine is noted Continue Symbicort, albuterol Oxygenation is stable Psychiatry consult pending pain control with Elberta and Neurontin Will likely go home today to be followed up on outpatient basis
--- NOTE | 2024-03-23 14:46 | P.PN ---
Subjective Progress Note Date: 03/22/24 Principal diagnosis: Reason for follow-up leukocytosis Patient is a 68-year-old female with a past medical history significant for fibromyalgia COPD heart failure asthma osteoarthritis PE patient presenting to the hospital for evaluation of back pain and numbness, patient was noticed to have elevated white count chest x-ray with bibasilar atelectasis versus infiltrate prompted this consultation. On today's evaluation that is 03/22/2024, patient has been afebrile, patient is breathing comfortably and is currently on 2 L current oxygen, patient denies having any significant cough no chest pain shortness of breath, patient denies nausea vomiting or diarrhea and no abdominal pain pain to the neck and lower back is slightly controlled with the pain medication no new symptoms. No new labs were obtained today patient white count normalized to 9.6 from yesterday did have normal sed rate of 19 blood culture has been negative Objective - Vital Signs Vital signs: Vital Signs Temp 97.7 F 03/22/24 07:19 Pulse 73 03/22/24 07:19 Resp 16 03/22/24 07:19 BP 163/74 03/22/24 07:19 Pulse Ox 96 03/22/24 07:19 FiO2 Intake & Output 03/21/24 03/22/24 03/22/24 18:59 06:59 18:59 Intake Total 50 Balance 50 Intake: Intake, IV Titration 50 Amount cefTRIAXone 1 gm In 50 Sodium Chloride 0.9% 50 ml @ 100 mls/hr IVPB Q24HR [facility] Rx#:[id number] Other: Voiding Method External Catheter # Voids 2 - Exam GENERAL DESCRIPTION: An elderly female lying in bed in no distress RESPIRATORY SYSTEM: Unlabored breathing , decreased breath sounds at bases HEART: S1 S2 regular rate and rhythm , ABDOMEN: Soft , no tenderness EXTREMITIES: No edema feet - Labs CBC & Chem 7: 03/21/24 05:55 03/21/24 05:55 Labs: Microbiology - Last 24 Hours (Table) 03/19/24 15:50 Blood Culture - Preliminary Blood Assessment and Plan (1) Allergy to multiple antibiotics Status: Acute Code(s): Z88.1 - ALLERGY STATUS TO OTHER ANTIBIOTIC AGENTS SNOMED Code(s): 800639328 (2) Leukocytosis Status: Acute Code(s): D72.829 - ELEVATED WHITE BLOOD CELL COUNT, UNSPECIFIED SNOMED Code(s): 817812682 Plan: 1patient with a leukocytosis in this patient who did have multiple comorbidities presenting with admitted to the hospital with the back pain which apparently has been chronic for and orthopedics has been consulted patient did have respiratory symptoms of cough and bringing up some yellow sputum chest x- ray with evidence of bibasilar infiltrate with a question of possible pulmonary source 2-patient with multiple antibiotic ALLERGIES that would limit the number of antibiotic safe to use 3- MRI of the cervical and lumbar spine did show significant degenerative changes did not mention any discitis patient white count has normalized procalcitonin is normal 4-patient culture has been negative may consider short course of oral Ceftin on discharge discussed with the resident physician Dictation was produced using [employer] dictation software. please excuse any grammatical, word or spelling errors. Time with Patient: Less than 30
--- NOTE | 2024-03-24 22:38 | P.PN ---
Subjective Progress Note Date: 03/22/24 (\) Patient was seen for a follow-up. Patient is sitting in the recliner, wants to go home. Patient continues to be very anxious, crying a lot. Patient's was also present by her side. No new concerns. Objective - Vital Signs Vital signs: Vital Signs Temp 98.4 F 03/22/24 14:00 Pulse 75 03/22/24 14:00 Resp 16 03/22/24 14:00 BP 167/76 03/22/24 14:00 Pulse Ox 90 L 03/22/24 14:00 FiO2 Intake & Output 03/21/24 03/22/24 03/22/24 18:59 06:59 18:59 Intake Total 50 240 Balance 50 240 Intake: Intake, IV Titration 50 Amount cefTRIAXone 1 gm In 50 Sodium Chloride 0.9% 50 ml @ 100 mls/hr IVPB Q24HR [facility] Rx#:[id number] Oral 240 Other: Voiding Method External Catheter # Voids 2 1 - Exam Patient's mental status, speech and language functions are normal. Patient is anxious and depressed. Crying a lot. Cranial nerves are normal. Muscle strength is normal in the arms distally and proximally. In the lower limbs, her strength is completely normal in the left lower limb. In the right lower limb, her hip flexion is 5-, knee extension 5, ankle dorsiflexion 4-, inversion 4-, eversion 4-, toe extension 4-, toe flexion 5, plantarflexion 5. Patient does have possible bilateral Babinski. Patient has very prominent Scoliosis of the spine. Prominent kyphoscoliosis. - Labs CBC & Chem 7: 03/21/24 05:55 03/21/24 05:55 Labs: Microbiology - Last 24 Hours (Table) 03/19/24 15:50 Blood Culture - Preliminary Blood Assessment and Plan Assessment: * New onset bilateral occipital headache, paresthesias in the occipital nerve distribution and posterior neck pain, likely due to occipital neuralgia/neuropathy. MRI of the cervical spine revealed severe spinal canal stenosis secondary to increased lordotic curvature at C3 vertebral body. Probable cervical myelopathy. * Chronic lower back pain, with significant neural foraminal stenosis at multiple levels without central spinal stenosis as per MRI report. * Scoliosis. * Hyponatremia * Elevated liver enzymes * Leukocytosis * Tobacco use * Severe anxiety disorder * Chronic pain * Polypharmacy Plan: * MRI of the cervical spine revealed at the mid level of C3 vertebral body, is severe spinal canal stenosis secondary to increased lordotic curvature. There may be some abnormal cord signal which is difficult to evaluate given patient positioning and motion. Moderate to severe spinal canal stenosis at the level C5-C6. Degeneration with moderate to severe bilateral C5-C6 neural foraminal stenosis with moderate spinal canal stenosis. * Patient needs follow-up with orthopedic spine. Patient has severe spinal stenosis with myelopathy. Patient possibly a candidate for cervical decompression. * MRI lumbar spine revealed multilevel degeneration of the spine with scoliosis with multilevel neural foraminal stenosis. Severe neural foraminal stenosis including at L2-L3 on the right, L4-L5 on the left, L5-S1 on the left. No evidence for high-grade spinal canal stenosis. * MRI of the thoracic spine revealed multilevel disc herniations. Most prominent at T3-T4, T6-T7, and T9-T10, with extrusions identified. T9-T10 disc herniation results in moderate central canal stenosis. Orthopedic surgery on board. There is very prominent scoliosis. * B12 498, folate 15.9, hemoglobin A1c 6.2, ESR 19, CRP 7.5, RF<15. JIM negative, rheumatoid factor negative, MMA 0.15, vitamin B6 pending * Treatment of anxiety disorder as per psychiatry. * Start gabapentin 300 mg twice daily for possible occipital neuralgia. Also will help with neuropathic pains in the legs. * Recommend complete tobacco cessation. * DVT prophylaxis: Patient on heparin 5000 units subcu every 12 hour. * Patient wanted CT of the head. I suggested that I can order the CT head, but she is adamant that she wants to have it outpatient. She wants to go home right now. * Recommend patient follow-up with orthopedic surgery outpatient. Addendum 04/09/2024: Vitamin B6 is low 3 (results came after discharge). Patient needs to start vitamin B6. I called multiple times at both numbers listed but no one picked up the phone. I left a message on the voicemail with Jose Eduardo, for patient to be started on vitamin B6 25 mg tablet, OTC, 2 tablets daily, or may talk to primary physician to get a prescription of vitamin B6 50 mg daily.
== END 2024-03-22 18:47 | disposition home or self-care (01) | DRG 552 ==
LOC: EC 09:35 → 5NMEDONC 14:00 → OBSVTOIN 03-21 09:47
PROVIDERS: ADMIT Internal Medicine; ATTEND Internal Medicine
DX: M51.37 Other intervertebral disc degeneration, lumbosacral region (principal); M51.06 Intervertebral disc disorders with myelopathy, lumbar region; N39.0 Urinary tract infection, site not specified; M47.12 Other spondylosis with myelopathy, cervical region; J96.11 Chronic respiratory failure with hypoxia; E87.1 Hypo-osmolality and hyponatremia; M48.07 Spinal stenosis, lumbosacral region; G89.29 Other chronic pain; M54.81 Occipital neuralgia; M79.7 Fibromyalgia; I50.9 Heart failure, unspecified; I11.0 Hypertensive heart disease with heart failure; G62.9 Polyneuropathy, unspecified; J44.9 Chronic obstructive pulmonary disease, unspecified; F41.9 Anxiety disorder, unspecified; F31.9 Bipolar disorder, unspecified; E86.1 Hypovolemia; E03.9 Hypothyroidism, unspecified; F12.10 Cannabis abuse, uncomplicated; M41.86 Other forms of scoliosis, lumbar region; K21.9 Gastro-esophageal reflux disease without esophagitis; Z79.51 Long term (current) use of inhaled steroids; Z79.890 Hormone replacement therapy; Z79.899 Other long term (current) drug therapy; N20.0 Calculus of kidney; F17.210 Nicotine dependence, cigarettes, uncomplicated; Z82.49 Family history of ischemic heart disease and other diseases of the circulatory system; Z87.19 Personal history of other diseases of the digestive system; Z86.711 Personal history of pulmonary embolism; Z88.1 Allergy status to other antibiotic agents; Z90.710 Acquired absence of both cervix and uterus; Z98.42 Cataract extraction status, left eye; Z98.84 Bariatric surgery status; Z99.81 Dependence on supplemental oxygen; M48.061 Spinal stenosis, lumbar region without neurogenic claudication; M41.82 Other forms of scoliosis, cervical region; M47.16 Other spondylosis with myelopathy, lumbar region; M48.02 Spinal stenosis, cervical region; I45.10 Unspecified right bundle-branch block; D72.828 Other elevated white blood cell count; Z88.5 Allergy status to narcotic agent; Z88.0 Allergy status to penicillin; Z88.2 Allergy status to sulfonamides
CPT/HCPCS: 36415; 71046; 72141; 72146; 72148; 80048; 80053; 81003; 82607; 82746; 83036; 83880; 83921; 84145; 84207; 85025; 85652; 86038; 86140; 86334; 86431; 87040; 87636; 93005; 94640; 94760; 96361; 96374; 96375; 96376; 99285

== ENCOUNTER 2024-03-23 13:48 | Emergency (ER) | payer MEDICARE ==
--- NOTE | 2024-03-23 14:08 | ED ---
Back Pain HPI - General Chief Complaint: Back Pain/Injury Stated Complaint: Numbness/pain in back Time Seen by Provider: 03/23/24 14:03 Source: patient, RN notes reviewed, old records reviewed Limitations: no limitations - History of Present Illness Initial Comments: 68 [id number] presents emergency department with chief complaint of chronic pain and anxiety. Patient states that she was discharged last night after hospitalization. She states she has no shortness of breath states that she has pain in the back of her neck head and back. She did have MRI and evaluation by neuro, pulmonary, psychiatric services, orthopedic services. Patient called for follow-up today because the symptoms advised to come to emergency department. She states she does not want to be here. She denies any new symptoms other than uncontrolled pain. Patient denies any bowel, bladder incontinence and retention no focal weakness. - Related Data Home Medications Medication Instructions Recorded Confirmed Montelukast [Singulair] 10 mg PO HS 12/17/13 03/18/24 Levothyroxine Sodium [Synthroid] 150 mcg PO DAILY 03/29/20 03/18/24 Budesonide/Formoterol Fumarate 2 puff INHALATION RT-BID 06/12/21 03/18/24 [Symbicort 160-4.5 Mcg Inhaler] Famotidine [Pepcid] 20 mg PO BID 09/03/21 03/18/24 Divalproex ER [Depakote ER] 250 mg PO HS 10/07/21 03/18/24 Tamsulosin [Flomax] 0.4 mg PO DAILY@1200 10/26/21 03/18/24 Ferrous Sulfate [Iron (65 MG 325 mg PO DAILY 11/13/22 03/18/24 Elemental)] Ipratropium-Albuterol Nebulize 3 ml INHALATION RT-QID PRN 11/13/22 03/18/24 [Duoneb 0.5 mg-3 mg/3 ml Soln] Metoprolol Tartrate [Lopressor] 25 mg PO BID 11/13/22 03/18/24 Thiamine [Vitamin B-1] 100 mg PO DAILY@1700 11/13/22 03/18/24 Ibandronate Sodium [Boniva] 150 mg PO Q30D 05/03/23 03/18/24 Melatonin 5 mg PO HS PRN 05/03/23 03/18/24 lisinopriL [Zestril] 20 mg PO DAILY 05/03/23 03/18/24 Acetaminophen [Tylenol Arthritis] 650 mg PO Q4HR PRN 10/24/23 03/18/24 amLODIPine [Norvasc] 5 mg PO DAILY 12/12/23 03/18/24 clonazePAM [KlonoPIN ODT] 0.25 mg PO HS 12/12/23 03/18/24 OLANZapine [ZyPREXA] 15 mg PO HS 01/22/24 03/18/24 Folic Acid 1 mg PO DAILY@1700 03/18/24 03/18/24 Venlafaxine HCl ER [Effexor XR] 150 mg PO DAILY 03/18/24 03/18/24 hydrOXYzine HCL [Atarax] 25 mg PO BID 03/18/24 03/18/24 lamoTRIgine [LaMICtal] 150 mg PO BID 03/18/24 03/18/24 Previous Rx's Medication Instructions Recorded Albuterol Inhaler [Ventolin Hfa 2 puff INHALATION RT-QID PRN #1 11/17/22 Inhaler] each Albuterol Nebulized [Ventolin 5 mg INHALATION RT-QID PRN #60 each 01/24/24 Nebulized] Naproxen [Naprosyn] 500 mg PO BID 30 Days #60 tablet 02/16/24 HYDROcodone/APAP 5-325MG [[facility] 1 tab PO Q6HR PRN 3 Days #12 tab 03/15/24 5-325] Cefuroxime [Ceftin] 500 mg PO BID 7 Days #14 tab 03/22/24 Allergies Allergy/AdvReac Type Severity Reaction Status Date / Time codeine Allergy Unknown Verified 03/18/24 14:48 Childhood Penicillins Allergy Rash/Hives Verified 03/18/24 14:48 Sulfa (Sulfonamide Allergy Rash/Hives Verified 03/18/24 14:48 Antibiotics) Review of Systems ROS Statement: Those systems with pertinent positive or pertinent negative responses have been documented in the HPI. ROS Other: All systems not noted in ROS Statement are negative. Past Medical History Past Medical History: Asthma, Heart Failure, COPD, Fibromyalgia, GERD/Reflux, Hypertension, Osteoarthritis (OA), Pneumonia, Pulmonary Embolus (PE), Skin Disorder, Thyroid Disorder Additional Past Medical History / Comment(s): Spinal Stenosis, Cervical disc disease/stenosis, scoliosis, recently having numbness/tingling L side of face/neck, recently saw model and mold maker plaster for L hemidiaphragmatic elevation-pt states she was told this was probably genetic, recently bronchitis and past bronchitis, pt states recent med change (water pill) d/t electrolyte problem/kidney function being affected, pt states she has had pulmonary emboli, past bilateral lower extremity cellulitis, edema lower extremities, IBS, hemorrhoids, benign colon polyps, sinus problems, UTIs, bacteremia/sepsis, cardiac murmur, past L ankle and L wrist fractures. History of Any Multi-Drug Resistant Organisms: None Reported Past Surgical History: Bariatric Surgery, Section, Cholecystectomy, Hysterectomy, Tonsillectomy Additional Past Surgical History / Comment(s): EGD, colonoscopies, gastric bypass, surgery for deviated septum, left cataract removal (having laser procedure on that eye 11/24/23) Past Anesthesia/Blood Transfusion Reactions: Previous Problems w/ Anesthesia Additional Past Anesthesia/Blood Transfusion Reaction / Comment(s): itching after hysterectomy, some kind of breathing problem after gastric bypass-not sure what happened Past Psychological History: Anxiety, Bipolar, Depression, Panic Disorder Smoking Status: Current every day smoker Past Alcohol Use History: None Reported Past Drug Use History: Marijuana - Past Family History Mother Family Medical History: Congestive Heart Failure (CHF), Hypertension Father History Unknown: Yes Additional Family Medical History / Comment(s): Father at the age of 45 yrs d/t having had rheumatic fever as a child and heart valve disease. General Exam Limitations: no limitations General appearance: alert, in no apparent distress, anxious Head exam: Present: atraumatic, normocephalic, normal inspection Eye exam: Present: normal appearance, PERRL, EOMI. Absent: scleral icterus, conjunctival injection, periorbital swelling ENT exam: Present: normal exam, mucous membranes moist Neck exam: Present: normal inspection, full ROM. Absent: tenderness, meningismus, lymphadenopathy Respiratory exam: Present: normal lung sounds bilaterally. Absent: respiratory distress, wheezes, rales, rhonchi, stridor Cardiovascular Exam: Present: regular rate, normal rhythm, normal heart sounds. Absent: systolic murmur, diastolic murmur, rubs, gallop, clicks GI/Abdominal exam: Present: soft, normal bowel sounds. Absent: distended, tenderness, guarding, rebound, rigid Extremities exam: Present: normal inspection, full ROM, normal capillary refill. Absent: tenderness, pedal edema, joint swelling, calf tenderness Back exam: Present: tenderness, paraspinal tenderness, vertebral tenderness. Absent: full ROM Course Vital Signs 03/23/24 03/23/24 13:49 15:03 Temperature 98.5 F 98.0 F Pulse Rate 82 72 Respiratory 20 18 Rate Blood Pressure 109/63 131/72 O2 Sat by Pulse 88 L 88 L Oximetry Medical Decision Making - Medical Decision Making Was pt. sent in by a medical professional or institution (, [facility], [employer], urgent care, hospital, or [facility]...) When possible be specific @ -No Did you speak to anyone other than the patient for history (EMS, parent, family, police, friend...)? What history was obtained from this source @ -No Did you review nursing and triage notes (agree or disagree)? Why? @ -I reviewed and agree with nursing and triage notes Were old charts reviewed (outside hosp., previous admission, EMS record, old EKG, old radiological studies, urgent care reports/EKG's, [facility] records)? Report findings @ -Reviewed inpatient records, imaging, specialty evaluations, discharge summary Differential Diagnosis (chest pain, altered mental status, abdominal pain women, abdominal pain men, vaginal bleeding, weakness, fever, dyspnea, syncope, headache, dizziness, GI bleed, back pain, seizure, CVA, palpatations, mental health, musculoskeletal)? @ -Chronic pain, anxiety, back pain, cervical pain EKG interpreted by me (3pts min.). @ -None X-rays interpreted by me (1pt min.). @ -None done CT interpreted by me (1pt min.). @ -None done U/S interpreted by me (1pt. min.). @ -None done What testing was considered but not performed or refused? (CT, X-rays, U/S, labs)? Why? @ -None What meds were considered but not given or refused? Why? @ -None Did you discuss the management of the patient with other professionals (professionals i.e. [facility] Shepard, [employer], lab, RT, psych nurse, manager social, dope dry house operator, teacher, president and chief operating officer, bilingual patient support caseworker)? Give summary @ -No Was smoking cessation discussed for >3mins.? @ -No Was critical care preformed (if so, how long)? @ -No Were there social determinants of health that impacted care today? How? (Homelessness, low income, unemployed, alcoholism, drug addiction, transportation, low edu. Level, literacy, decrease access to med. care, detention, rehab)? @ -No Was there de-escalation of care discussed even if they declined (Discuss DNR or withdrawal of care, Hospice)? DNR status @ -No What co-morbidities impacted this encounter? (DM, HTN, Smoking, COPD, CAD, Cancer, CVA, ARF, Chemo, Hep., AIDS, mental health diagnosis, sleep apnea, morbid obesity)? @ -None Was patient admitted / discharged? Hospital course, mention meds given and route, prescriptions, significant lab abnormalities, going to OR and other pertinent info. @ -Discharged patient provided analgesics, anxiolytics. Patient had an appointment made with orthopedics will be discharged in stable condition return for as discussed. Patient was discharged from the hospital last night. Undiagnosed new problem with uncertain prognosis? @ -No Drug Therapy requiring intensive monitoring for toxicity (Heparin, Nitro, Insulin, Cardizem)? @ -No Were any procedures done? @ -No Diagnosis/symptom? @ -Anxiety, chronic pain Acute, or Chronic, or Acute on Chronic? @ -Acute on chronic Uncomplicated (without systemic symptoms) or Complicated (systemic symptoms)? @ -Uncomplicated Side effects of treatment? @ -No Exacerbation, Progression, or Severe Exacerbation? @ -No Poses a threat to life or bodily function? How? (Chest pain, [place], [place], pneumonia, PE, COPD, DKA, ARF, appy, cholecystitis, CVA, Diverticulitis, Homicidal, Suicidal, threat to staff... and all critical care pts) @ -No Disposition Clinical Impression: Spinal stenosis, Chronic pain, Back pain, Anxiety Disposition: HOME SELF-CARE Condition: Stable Additional Instructions: Follow-up with your PCP and orthopedics at your scheduled appointment. Is patient prescribed a controlled substance at d/c from ED?: No Referrals: Andrzej Wheeler MD [Primary Care Provider] - 1-2 days Mark Alex DO [Doctor of Osteopathic Medicine] - 03/29/24 10:45 am (This is a new patient appointment. You will have to bring your ID card and Insurance cards.) Time of Disposition: 14:43
[2024-03-23] MEDS: HYDROmorphone 1 MG/ML 1 ML SYRINGE IM STA (14:25)
[2024-03-23 15:05] VITALS: BP 131/72; PULSE 72; RESP 18; TEMP 98
== END 2024-03-23 15:27 | disposition home or self-care (01) ==
LOC: EC 13:48
CPT/HCPCS: 96372; 99283

== ENCOUNTER 2024-03-24 17:10 | Inpatient (IN) | payer MEDICARE ==
--- NOTE | 2024-03-24 17:59 | ED ---
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 Patient states he was sitting in her wheelchair when she began to get sleepy, leaned up to the right side like "she normally does" and slid down from her wheelchair hitting her face on the floor. She denies loss of consciousness but EMS personnel reported that she did lose consciousness. Patient reports that she has had bilateral blurry vision since last night or this morning, saw her primary care provider earlier today who referred her to neurology. Denies any new numbness or focal weakness however does states she has generalized weakness. No new chest pain or shortness of breath. Did injure her right knee is not on blood thinners. Unsure of her last tetanus shot. Endorses associated lightheadedness. No exacerbating or alleviating factors. Stated that nausea and lightheadedness began last night however this afternoon around 1:00 she did take some Dramamine to try to resolve it and that has not improved. Denies any abdominal pain. Denies diarrhea black or bloody stools. No fevers. (Ginna Burger) 68 female with a near syncopal event coming in for falling off of her chair hitting her head injury to right lower extremity (Isrrael Gould) - Related Data Home Medications Medication Instructions Recorded Confirmed Montelukast [Singulair] 10 mg PO HS 12/17/13 03/25/24 Levothyroxine Sodium [Synthroid] 150 mcg PO DAILY 03/29/20 03/25/24 Budesonide/Formoterol Fumarate 2 puff INHALATION RT-BID 06/12/21 03/25/24 [Symbicort 160-4.5 Mcg Inhaler] Famotidine [Pepcid] 20 mg PO BID 09/03/21 03/25/24 Divalproex ER [Depakote ER] 250 mg PO HS 10/07/21 03/25/24 Tamsulosin [Flomax] 0.4 mg PO DAILY@1200 10/26/21 03/25/24 Ferrous Sulfate [Iron (65 MG 325 mg PO DAILY 11/13/22 03/25/24 Elemental)] Ipratropium-Albuterol Nebulize 3 ml INHALATION RT-QID PRN 11/13/22 03/25/24 [Duoneb 0.5 mg-3 mg/3 ml Soln] Metoprolol Tartrate [Lopressor] 25 mg PO BID 11/13/22 03/25/24 Thiamine [Vitamin B-1] 100 mg PO DAILY@1700 11/13/22 03/25/24 Ibandronate Sodium [Boniva] 150 mg PO Q30D 05/03/23 03/25/24 Melatonin 5 mg PO HS PRN 05/03/23 03/25/24 lisinopriL [Zestril] 20 mg PO DAILY 05/03/23 03/25/24 Acetaminophen [Tylenol Arthritis] 650 mg PO Q4HR PRN 10/24/23 03/25/24 amLODIPine [Norvasc] 5 mg PO DAILY 12/12/23 03/25/24 clonazePAM [KlonoPIN ODT] 0.25 mg PO HS 12/12/23 03/25/24 OLANZapine [ZyPREXA] 15 mg PO HS 01/22/24 03/25/24 Folic Acid 1 mg PO DAILY@1700 03/18/24 03/25/24 Venlafaxine HCl ER [Effexor XR] 150 mg PO DAILY 03/18/24 03/25/24 hydrOXYzine HCL [Atarax] 25 mg PO BID 03/18/24 03/25/24 lamoTRIgine [LaMICtal] 150 mg PO BID 03/18/24 03/25/24 Cefuroxime [Ceftin] 500 mg PO BID 03/25/24 03/25/24 Previous Rx's Medication Instructions Recorded Albuterol Inhaler [Ventolin Hfa 2 puff INHALATION RT-QID PRN #1 11/17/22 Inhaler] each Albuterol Nebulized [Ventolin 5 mg INHALATION RT-QID PRN #60 each 01/24/24 Nebulized] Naproxen [Naprosyn] 500 mg PO BID 30 Days #60 tablet 02/16/24 HYDROcodone/APAP 5-325MG [Delta 1 tab PO Q6HR PRN 3 Days #12 tab 03/15/24 5-325] Allergies Allergy/AdvReac Type Severity Reaction Status Date / Time codeine Allergy Unknown Verified 03/25/24 08:33 Childhood Penicillins Allergy Rash/Hives Verified 03/25/24 08:33 Sulfa (Sulfonamide Allergy Rash/Hives Verified 03/25/24 08:33 Antibiotics) Review of Systems ROS Other: All systems not noted in ROS Statement are negative. <Isrrael Gould - Last Filed: 03/25/24 22:30> ROS Statement: Those systems with pertinent positive or pertinent negative responses have been documented in the HPI. 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 History of Any Multi-Drug Resistant Organisms: None Reported Past Surgical History: Bariatric Surgery, Section, Cholecystectomy, Hysterectomy, Tonsillectomy Additional Past Surgical History / Comment(s): EGD, colonoscopies, gastric bypass, surgery for deviated septum, left cataract removal (having laser procedure on that eye 11/24/23) Past Anesthesia/Blood Transfusion Reactions: Previous Problems w/ Anesthesia Additional Past Anesthesia/Blood Transfusion Reaction / Comment(s): itching after hysterectomy, some kind of breathing problem after gastric bypass-not sure what happened Past Psychological History: Anxiety, Bipolar, Depression, Panic Disorder Smoking Status: Current every day smoker Past Alcohol Use History: None Reported Past Drug Use History: Marijuana - Past Family History Mother Family Medical History: Congestive Heart Failure (CHF), Hypertension Father History Unknown: Yes Additional Family Medical History / Comment(s): Father at the age of 45 yrs d/t having had rheumatic fever as a child and heart valve disease. <Ginna Burger - Last Filed: 03/25/24 11:07> General Exam Limitations: no limitations <Ginna Burger - Last Filed: 03/25/24 11:07> General appearance: alert, in no apparent distress Head exam: Present: atraumatic, normocephalic, normal inspection Eye exam: Present: normal appearance, PERRL, EOMI. Absent: scleral icterus, conjunctival injection, periorbital swelling ENT exam: Present: normal exam, mucous membranes moist Neck exam: Present: normal inspection. Absent: tenderness, meningismus, lymphadenopathy Respiratory exam: Present: normal lung sounds bilaterally. Absent: respiratory distress, wheezes, rales, rhonchi, stridor Cardiovascular Exam: Present: regular rate, normal rhythm, normal heart sounds. Absent: systolic murmur, diastolic murmur, rubs, gallop, clicks GI/Abdominal exam: Present: soft, normal bowel sounds. Absent: distended, tenderness, guarding, rebound, rigid Extremities exam: Present: normal inspection, full ROM, normal capillary refill. Absent: tenderness, pedal edema, joint swelling, calf tenderness Back exam: Present: normal inspection Neurological exam: Present: alert, oriented X3, CN II-XII intact Psychiatric exam: Present: normal affect, normal mood Skin exam: Present: warm, dry, intact, normal color. Absent: rash <Isrrael Gould - Last Filed: 03/25/24 22:30> - General Exam Comments Initial Comments: PE: CONSTITUTIONAL: No apparent distress, ill-appearing, c-collar in place, awake and alert SKIN: Warm, dry, no jaundice, hives or petechiae, large flap laceration to the right knee, small amount of bruising to the right lateral orbit EYES: Pupils are equally round, extraocular movements intact without nystagmus, clear conjunctiva, non-icteric sclera HENT: Normocephalic, small hematoma to the right lateral orbit, no swelling, moist mucus membranes, oropharynx clear without exudates NECK: , C-collar in place, no midline spinal tenderness to palpation PULMONARY: Limited as patient coughing throughout exam scant wheezes in bilater al lower lung flores, no rhonchi, stridor, normal excursion CARDIOVASCULAR: Regular rate, rhythm, normal S1 and S2. No appreciated murmurs, rubs or gallops. Strong radial pulses with intact distal perfusion. No lower extremity edema GASTROINTESTINAL: Soft, non-tender, non-distended, no palpable masses, no rebound or guarding. No hepatosplenomegaly MUSCULOSKELETAL: Extremities have no gross deformity, no edema, redness, or swelling. No calf swelling. Patient able to flex and extend her right knee through full range of motion without pain or limitation NEUROLOGIC:_a/o x 3, GCS 15, normal mentation and speech. Moves all extremities x 4 without motor or sensory deficit PSYCHIATRIC:_normal mood and affect, thought process is clear and linear (Ginna Burger) 10 cm laceration right lower extremity (Isrrael Gould) Course <Isrrael Gould - Last Filed: 03/25/24 22:30> Vital Signs 03/24/24 03/24/24 03/24/24 17:24 20:00 23:00 Temperature 98.2 F Pulse Rate 59 L 61 54 L Respiratory 18 18 18 Rate Blood Pressure 99/60 102/60 104/50 O2 Sat by Pulse 98 97 97 Oximetry 03/25/24 03/25/24 03/25/24 00:00 03:00 06:51 Temperature 98.5 F Pulse Rate 58 L 69 69 Respiratory 18 18 22 Rate Blood Pressure 107/50 121/67 122/57 O2 Sat by Pulse 97 96 93 L Oximetry 03/25/24 03/25/24 03/25/24 18:00 19:38 20:19 Temperature Pulse Rate 78 82 81 Respiratory 18 18 18 Rate Blood Pressure 109/73 120/60 133/72 O2 Sat by Pulse 94 L 95 95 Oximetry - Reevaluation(s) Reevaluation #1: 03/24/24 22:44 Medical records reviewed (Isrrael Gould) Reevaluation #2: 03/24/24 22:44 Patient symptoms improved 03/24/24 22:44 Still feels weak and near syncopal (Isrrael Gould) Reevaluation #3: 03/24/24 22:44 Patient informed of results and questions answered (Isrrael Gould) Reevaluation #5: Differential Syncope: Valvular disease, hypertrophic cardiomyopathy, pulmonary embolism, tamponade, tachycardia, bradycardia, ND, hypovolemia, hemorrhage, dissection, anemia, intracranial hemorrhage, seizure, hypoglycemia, carbon monoxide poisoning, this is not meant to be an all-inclusive list. Differential Weakness: Hypoglycemia, shock, sepsis, hyponatremia, anemia, infection, ND, ETOH, adverse medicine reaction, overdose, stroke, this is not meant to be an all-inclusive list. (Isrrael Gould) - Consultations Consultation #1: Spoke with [facility] who agrees to admit this patient (Isrrael Gould) Procedures - Laceration Laceration #1 Consent Obtained: verbal consent Indication: laceration Site: lower extremity Size (cm): 10 Description: stellate Anesthetic Used: lidocaine 1%, with epi Size of Sutures: 3-0 Technique: simple, interrupted Patient Tolerated Procedure: well <Isrrael Gould - Last Filed: 03/25/24 22:30> Medical Decision Making - Lab Data Result diagrams: 03/25/24 04:14 03/25/24 04:14 <Ginna Burger - Last Filed: 03/25/24 11:07> - Lab Data Result diagrams: 03/25/24 04:14 03/25/24 04:14 - Radiology Data Radiology results: report reviewed (CT brain facial bones angio head and neck chest x-ray is negative for acute disease), image reviewed <Isrrael Gould - Last Filed: 03/25/24 22:30> - Medical Decision Making Was pt. sent in by a medical professional or institution (, PA, STONECUTTER APPRENTICE HAND, urgent care, hospital, or detention...) When possible be specific @ -No Did you speak to anyone other than the patient for history (EMS, parent, family, police, friend...)? What history was obtained from this source @ -Patient's , at bedside assisted in providing history Did you review nursing and triage notes (agree or disagree)? Why? @ -I reviewed and agree with nursing and triage notes Were old charts reviewed (outside hosp., previous admission, EMS record, old EKG, old radiological studies, urgent care reports/EKG's, detention records)? Report findings @ -Old charts reviewed please see note below Differential Diagnosis (chest pain, altered mental status, abdominal pain women, abdominal pain men, vaginal bleeding, weakness, fever, dyspnea, syncope, headache, dizziness, GI bleed, back pain, seizure, CVA, palpatations, mental health, musculoskeletal)? @ -Differential diagnosis remains broad however top considerations include BPPV, Mnire's disease, vertebrobasilar insufficiency, cerebellar stroke, hypovolemia, arrhythmia, electrolyte abnormality, medication side effect, anemia this is not all-inclusive list EKG interpreted by me (3pts min.). @Sinus bradycardia, rate 59 bpm, NJ interval 201 ms, QRS duration 131 ms, QT/QTc 411/410 ms, right axis deviation, large T waves noted in V2, T wave inversion in 1 and 2 X-rays interpreted by me (1pt min.). @ -Pending at time of signout CT interpreted by me (1pt min.). @ -I see no evidence of fracture of the orbits, no evidence of hemorrhage or mass effect U/S interpreted by me (1pt. min.). @ -None done What testing was considered but not performed or refused? (CT, X-rays, U/S, labs)? Why? @ -None What meds were considered but not given or refused? Why? @ -None Did you discuss the management of the patient with other professionals (professionals i.e. , PA, STONECUTTER APPRENTICE HAND, lab, RT, psych nurse, social work associate, cardiology tech, teacher, chief risk officer, case assistant)? Give summary @ -No Was smoking cessation discussed for >3mins.? @ -No Was critical care preformed (if so, how long)? @ -No Were there social determinants of health that impacted care today? How? (Homelessness, low income, unemployed, alcoholism, drug addiction, transportation, low edu. Level, literacy, decrease access to med. care, fci, rehab)? @ -No Was there de-escalation of care discussed even if they declined (Discuss DNR or withdrawal of care, Hospice)? @ -No What co-morbidities impacted this encounter? (DM, HTN, Smoking, COPD, CAD, Cancer, CVA, ARF, Chemo, Hep., AIDS, mental health diagnosis, sleep apnea, morbid obesity)? @ -Heart failure, hypertension, fibromyalgia Was patient admitted / discharged? Hospital course, mention meds given and route, prescriptions, significant lab abnormalities, going to OR and other pertinent info. @ -Hospital course Triage note reviewed, patient arrives for complaint of fall from wheelchair states she is felt dizzy and fell to the ground denied loss of consciousness however EMS reported positive LOC abrasion to right knee vitals reviewed, blood pressure 99/60, pulse ox 90% on room air temperature 98.2 degrees oral, heart rate 59; patient recently discharged on 03/21/2024 after being admitted on 02/18 after being admitted for back pain with tingling numbness and weakness of the lower extremities not improved with home Delta MRI of the cervical and lumbar spine on 03/21 showed moderate to severe spinal canal stenosis at C5-C6 as well as neural aminal neuroforaminal stenosis L2 L3-L4-L5 L5-S1 was cleared by orthopedics for discharge discharge on cefuroxime. Patient is a 68-year-old female past medical history fibromyalgia, heart failure, hypertension, GERD presenting today for dizziness with fall from her wheelchair. On assessment patient chronically ill appearing, in NAD, small bruise to right lateral orbit, EOM intact, no midline spinal TTP, No chest wall or abdominal TTP, large laceration over right knee without joint swelling, deformity or decreased ROM; No focal neuralgic deficits. Scant wheezes in lungs bilaterally however exam limited as patient coughing frequently during exam. Describes blurry vision bilaterally ongoing since last night- this morning, visual flores grossly intact. Right pupil 3 mm, left pupil 2 mm, both round, reactive to light. Differential diagnoses above, CT brain ordered, CTA head and neck given describe dizziness, chest x-ray, x-ray right knee ordered. Will withhold narcotic pain control as point given patient's lightheadedness. Small fluid bolus, comprehensive labs ordered. Patient Tdap ordered. Na 125, decreased from 03/21/24 was 135, K 5.2, No EKG changes reflextive of hyperkalemia, calcium, insulin dextrose ordered. When asked patient states that she is not eating due to pain and anxiety. Repeat BMP as well as serum osmolality and urine osmolality ordered. CTA read, chest x-ray, knee x-ray pending, anticipate admission, signed out to Dr. Gould pending admission. Undiagnosed new problem with uncertain prognosis? @ -No Drug Therapy requiring intensive monitoring for toxicity (Heparin, Nitro, Insulin, Cardizem)? @ -No Were any procedures done? @ -Laceration repaired by oncoming physician, Dr. Marte, please see his procedure note for further details Diagnosis/symptom? @ -Hyponatremia, hyperkalemia, lightheadedness, fall, laceration Acute, or Chronic, or Acute on Chronic? @ -Acute Uncomplicated (without systemic symptoms) or Complicated (systemic symptoms)? @ -Complicated Side effects of treatment? @ -No Exacerbation, Progression, or Severe Exacerbation? @ -No Poses a threat to life or bodily function? How? (Chest pain, USA, ND, pneumonia, PE, COPD, DKA, ARF, appy, cholecystitis, CVA, Diverticulitis, Homicidal, Suicidal, threat to staff... and all critical care pts) @ -Yes, potentially if hyponatremia allowed to continue to worsen or was left untreated and patient is already experiencing symptoms from this, could progress to seizures (Ginna Burger) 68 female multiple falls near syncopal event dehydration patient will be admitted for low sodium monitor mildly elevated potassium with IV hydration, laceration is repaired and patient can be admitted for further evaluation and management (Isrrael Gould) - Lab Data Lab Results 03/24/24 03/24/24 03/24/24 Range/Units 18:57 18:57 18:57 WBC 8.6 (3.8-10.6) k/uL RBC 3.39 L (3.80-5.40) m/uL Hgb 10.6 L (11.4-16.0) gm/dL Hct 32.8 L (34.0-46.0) % MCV 96.5 (80.0-100.0) fL MCH 31.1 (25.0-35.0) pg MCHC 32.2 (31.0-37.0) g/dL RDW 13.1 (11.5-15.5) % Plt Count 298 (150-450) k/uL MPV 6.8 Neutrophils % 67 % Lymphocytes % 19 % Monocytes % 10 % Eosinophils % 3 % Basophils % 1 % Neutrophils # 5.8 (1.3-7.7) k/uL Lymphocytes # 1.6 (1.0-4.8) k/uL Monocytes # 0.8 (0-1.0) k/uL Eosinophils # 0.3 (0-0.7) k/uL Basophils # 0.1 (0-0.2) k/uL PT 10.3 (10.0-12.5) sec INR 0.9 (<1.2) APTT 32.1 H (22.0-30.0) sec Sodium 125 L (137-145) mmol/L Potassium 5.2 H (3.5-5.1) mmol/L Chloride 91 L (98-107) mmol/L Carbon Dioxide 30 (22-30) mmol/L Anion Gap 4 mmol/L BUN 28 H (7-17) mg/dL Creatinine 0.90 (0.52-1.04) mg/dL Est GFR (CKD-EPI)AfAm 77 (>60 ml/min/1.73 sqM) Est GFR (CKD-EPI)NonAf 67 (>60 ml/min/1.73 sqM) Glucose 72 L (74-99) mg/dL POC Glucose (mg/dL) (70-110) mg/dL POC Glu Urology Nurse ID Calcium 9.4 (8.4-10.2) mg/dL Ionized Calcium Katheryn 5.3 (4.5-5.3) mg/dL Magnesium 1.6 (1.6-2.3) mg/dL Total Bilirubin 0.7 (0.2-1.3) mg/dL AST 34 (14-36) U/L ALT 28 (4-34) U/L Alkaline Phosphatase 60 (38-126) U/L Troponin I (0.000-0.034) ng/mL NT-Pro-B Natriuret Pep 1180 pg/mL Total Protein 5.2 L (6.3-8.2) g/dL Albumin 3.1 L (3.5-5.0) g/dL TSH 4.220 (0.465-4.680) mIU/L 03/24/24 03/24/24 Range/Units 18:57 21:11 WBC (3.8-10.6) k/uL RBC (3.80-5.40) m/uL Hgb (11.4-16.0) gm/dL Hct (34.0-46.0) % MCV (80.0-100.0) fL MCH (25.0-35.0) pg MCHC (31.0-37.0) g/dL RDW (11.5-15.5) % Plt Count (150-450) k/uL MPV Neutrophils % % Lymphocytes % % Monocytes % % Eosinophils % % Basophils % % Neutrophils # (1.3-7.7) k/uL Lymphocytes # (1.0-4.8) k/uL Monocytes # (0-1.0) k/uL Eosinophils # (0-0.7) k/uL Basophils # (0-0.2) k/uL PT (10.0-12.5) sec INR (<1.2) APTT (22.0-30.0) sec Sodium (137-145) mmol/L Potassium (3.5-5.1) mmol/L Chloride (98-107) mmol/L Carbon Dioxide (22-30) mmol/L Anion Gap mmol/L BUN (7-17) mg/dL Creatinine (0.52-1.04) mg/dL Est GFR (CKD-EPI)AfAm (>60 ml/min/1.73 sqM) Est GFR (CKD-EPI)NonAf (>60 ml/min/1.73 sqM) Glucose (74-99) mg/dL POC Glucose (mg/dL) 77 (70-110) mg/dL POC Glu Urology Nurse ID Anthony, Amenda Calcium (8.4-10.2) mg/dL Ionized Calcium Katheryn (4.5-5.3) mg/dL Magnesium (1.6-2.3) mg/dL Total Bilirubin (0.2-1.3) mg/dL AST (14-36) U/L ALT (4-34) U/L Alkaline Phosphatase (38-126) U/L Troponin I <0.012 (0.000-0.034) ng/mL NT-Pro-B Natriuret Pep pg/mL Total Protein (6.3-8.2) g/dL Albumin (3.5-5.0) g/dL TSH (0.465-4.680) mIU/L Critical Care Time Critical Care Time: Yes Total Critical Care Time: 31 <Isrrael Gould - Last Filed: 03/25/24 22:30> Disposition <Ginna Burger - Last Filed: 03/25/24 11:07> Is patient prescribed a controlled substance at d/c from ED?: No Time of Disposition: 22:45 <Isrrael Gould - Last Filed: 03/25/24 22:30> Clinical Impression: COPD (chronic obstructive pulmonary disease), Anxiety, Weakness, Fall, Laceration of right lower leg, Head injury, Dizziness, Hyperkalemia, Hyponatremia, Syncope, Pre-syncope Disposition: ADMITTED IP TO THIS HOSP Condition: Serious
[2024-03-24 19:03] LABS: Basophils # (A) 0.1 k/uL (0-0.2); Basophils % (A) 1 %; Eosinophils # (A) 0.3 k/uL (0-0.7); Eosinophils % (A) 3 %; HCT 32.8 % (34.0-46.0); HGB 10.6 gm/dL (11.4-16.0); Lymphocytes # (A) 1.6 k/uL (1.0-4.8); Lymphocytes % (A) 19 %; MCH 31.1 pg (25.0-35.0); MCHC 32.2 g/dL (31.0-37.0); MCV 96.5 fL (80.0-100.0); Mean Platelet Volume 6.8; Monocytes # (A) 0.8 k/uL (0-1.0); Monocytes % (A) 10 %; Neutrophils # (A) 5.8 k/uL (1.3-7.7); Neutrophils % (A) 67 %; Platelet Count 298 k/uL (150-450); RBC 3.39 m/uL (3.80-5.40); RDW 13.1 % (11.5-15.5); WBC 8.6 k/uL (3.8-10.6)
[2024-03-24 19:09] LABS: Ionized Calcium 5.3 mg/dL (4.5-5.3)
[2024-03-24 19:21] LABS: INR 0.9 (<1.2); Partial Thromboplastin Time 32.1 sec (22.0-30.0); Prothrombin Time 10.3 sec (10.0-12.5)
[2024-03-24 19:22] LABS: ALT 28 U/L (4-34); AST 34 U/L (14-36); African American GFR (CKD) 77 (>60 ml/min/1.73 sqM); Albumin 3.1 g/dL (3.5-5.0); Alkaline Phosphatase 60 U/L (38-126); Anion Gap 4 mmol/L; Blood Urea Nitrogen 28 mg/dL (7-17); Calcium 9.4 mg/dL (8.4-10.2); Carbon Dioxide 30 mmol/L (22-30); Chloride 91 mmol/L (98-107); Glucose 72 mg/dL (74-99); Magnesium 1.6 mg/dL (1.6-2.3); Non-African American GFR(CKD) 67 (>60 ml/min/1.73 sqM); Potassium 5.2 mmol/L (3.5-5.1); Sodium 125 mmol/L (137-145); Total Bilirubin 0.7 mg/dL (0.2-1.3); Total Protein 5.2 g/dL (6.3-8.2)
[2024-03-24 19:31] LABS: NT-Pro-B-Type Natriuretic Pept 1180 pg/mL
--- NOTE | 2024-03-24 20:03 | CT ---
EXAMINATION TYPE: CT orbits wo con CT DLP: combined with head/cspine mGycm, Automated exposure control for dose reduction was used. DATE OF EXAM: 03/24/2024 7:50 PM COMPARISON: None. CLINICAL INDICATION:Female, 68 years old with history of fall, bruising right face; PHH, fall/blurred vision TECHNIQUE: Orbits: Axial CT with coronal and sagittal reformats through the orbits. No IV or oral contrast was u tilized. Findings: Orbital Contents: * Globes: Intact. Probable prior lens surgery on the left. * Preseptal Tissues: Mild right preseptal soft tissue swelling with extension to the right forehead and small focus of subcutaneous gas over the forehead. No radiopaque foreign body. * Intraconal Structures: Normal. * Extraconal Structures and Lacrimal Glands: Normal. * Orbital [place]: Normal. Sella Turcica and Cavernous Sinuses: The sella turcica and cavernous sinus regions are intact and sym metric. Moderate calcifications of the carotid siphons. Visualized Brain Parenchyma: Please refer to separate CT head report for further description of findi ngs. Paranasal Sinuses and Surrounding Structures: Visualized mastoid air cells and paranasal sinuses are clear. No fracture of the visualized facial bones. Other: No acute soft tissue abnormality. Moderate to heavy atherosclerotic calcifications noted in th e carotid bifurcation regions in the neck. IMPRESSION: 1. Mild right preseptal soft tissue swelling with extension to the right forehead and small focus of subcutaneous gas over the forehead. No radiopaque foreign body. 2. No evidence of orbital fracture or acute intraorbital abnormality.
[2024-03-24] MEDS: ONDANSETRON 4 MG/2 ML VIAL IVP STA ×2 (20:09→22:00)
[2024-03-24] MEDS: ACETAMINOPHEN TAB 500 MG TAB PO STA (20:09)
[2024-03-24] MEDS: DIPH,PERTUS(ACELL)TETVAC-LF 0.5 ML VIAL IM ONE (20:12)
[2024-03-24] MEDS: SODIUM CHLORIDE 0.9% 500 ML 500 ML IV STA (20:14)
--- NOTE | 2024-03-24 20:54 | CT ---
EXAMINATION TYPE: CT brain cspine wo con CT DLP: 978.9 mGycm, Automated exposure control for dose reduction was used. DATE OF EXAM: 03/24/2024 7:50 PM COMPARISON: CT brain cervical spine October 26, 2021 CLINICAL INDICATION:Female, 68 years old with history of Trauma; fall/blurred vision TECHNIQUE: Brain: Multiple axial CT images of the brain were obtained without IV contrast. Cspine: Axial CT images from the skull base to the inferior aspect of T2 we obtained without intraven ous contrast. Coronal and sagittal reformatted images were also reviewed. FINDINGS: Brain: Extra-axial spaces: No abnormal extra-axial fluid collections. Ventricular system: Appear dilated in proportion to the degree of cerebral atrophy. Cerebral parenchyma: No increased attenuation to suggest acute intraparenchymal hemorrhage. The gra y-white matter interface appears maintained. Mild/moderate generalized brain atrophy. Scattered hyp oattenuating areas are seen within the cerebral white matter, nonspecific but most often seen with ch ronic microvascular ischemic changes; mild in degree. Cerebellum: No acute abnormality. Mass effect: No evidence of mass effect or midline shift. Intracranial vasculature: Atherosclerotic calcifications of the larger arteries near the skull base. Soft tissues: Right preseptal soft tissue swelling with extension to the right forehead and small foc us of subcutaneous gas over the forehead. Otherwise no acute abnormality Visualized orbits: Refer to separate CT Orbits report for details Calvarium/osseous structures: No evidence of calvarial fracture. Paranasal sinuses and mastoid air cells: Clear. MRI is more sensitive for detecting acute processes such as infarct, and may be considered if clinica lly warranted. Cervical spine: Fracture: None seen. Osseous structures, spinal canal/neural foramina: Bones appear osteopenic. Craniocervical junction ap pears intact. Moderate multilevel degenerative changes throughout the cervical spine including degene rative disc disease and facet arthrosis. There are various degrees of spinal canal and neural forami nal stenosis; please refer to recent MRI for further description of findings, including tight canal s tenosis at C3. Vertebral alignment: No traumatic malalignment. Mild reversal of the normal cervical lordosis likely degenerative. Trace retrolisthesis C2 on C3, anterolisthesis C4 and C5, and retrolisthesis of C5 on C 6. Prominent apex right curvature of the cervical spine appears increased from the prior study. Neck soft tissues: Assessment limited by motion, with no clearly acute abnormality. Calcifications no carlos in the region of the bilateral cervical carotid arteries and along the aortic arch. Other: Included lung apices show mild emphysematous changes and scarring. No acute infiltrate or pneu mothorax. Thyroid is not clearly seen. IMPRESSION: CT head: 1. No acute intracranial CT abnormality. 2. Atrophy and chronic microvascular ischemic changes. CT cervical spine: 1. No evidence of acute cervical spine fracture or traumatic malalignment. 2. Moderate cervical spondylosis, described above and on recent MRI.
[2024-03-24 21:14] LABS: Glucose,Whole Blood 77 mg/dL (70-110)
[2024-03-24] MEDS: CALCIUM GLUCONATE IN NACL 1 GM in SALINE 1 100ML.BAG IVPB ONE (21:18)
[2024-03-24] MEDS: DEXTROSE 50% SYRINGE 50 ML IVP ONE (21:18)
[2024-03-24] MEDS: INSULIN REGULAR 100 UNIT/ML VIAL (IV) IV ONE (21:19)
--- NOTE | 2024-03-24 21:46 | CT ---
EXAMINATION TYPE: CT angio head neck DATE OF EXAM: 03/24/2024 7:51 PM COMPARISON: Same day CT brain cervical spine and orbits. CLINICAL INDICATION:Female, 68 years old with history of fall, blurred vision; PHH, fall/blurred visi on TECHNIQUE: Axially acquired helical CT angiogram of the head and neck was obtained with contrast. Axi al images are supplemented with 3D reconstructions [facility] NAS[facility]ET criteria used. Contrast used: 65ml mL of Isovue 370 IV Oral contrast used: None. CT DLP: 1407.9 mGycm, Automated exposure control for dose reduction was used. FINDINGS: CTA Neck: 3 vessel aortic arch is shown. No dissection. Moderate soft and calcified plaque along the arch and p roximal great vessels with mild narrowing of the great vessel origins. Calcifications of the brachioc ephalic artery bifurcation and proximal right subclavian artery, with mild narrowing of the latter. M ild calcification at the origin of the right vertebral artery with mild stenosis suggested. Mild calc ification of the left vertebral artery origin with mild stenosis. Vertebral arteries are otherwise th ereafter patent throughout the neck without evidence of dissection, significant stenosis or pseudoane urysm. Vertebrals appear codominant. The common carotids appear patent. There is moderate mixed mostly calcified plaque at the carotid bif urcations and proximal ICAs with up to 50% diameter stenosis bilaterally. ICAs are thereafter patent to the skull base. No evidence of dissection. Other: Soft tissues show no acute abnormality. There is a heterogeneous enhancing solid-appearing nod ule which likely arises from the right thyroid lobe measuring up to 2.5 cm diameter/width, and appear s taller than wide measuring 3.4 cm craniocaudally. No pathologically enlarged cervical lymph nodes a re seen. Airway is patent. Included lung apices show no acute infiltrate or pneumothorax. Degenerative changes are demonstrated throughout the visualized spine. No acute bony abnormality is s een. Please refer to same-day C-spine CT and recent C-spine MRI reports for further description of fi ndings. CTA Head: There are some calcifications of the cavernous portions of the ICAs without significant stenosis. Supraclinoid ICAs, bifurcations, ACAs, MCAs appear normally patent. Anterior communicating artery anatoly ears present without evidence of regional aneurysm. Intracranial vertebral arteries are enhancing and appear essentially codominant. There is a short seg ment fenestration of the left vertebral V4 segment. Major posterior fossa branches are grossly unrema rkable. Basilar artery is normal in course and caliber. Basilar bifurcation is unremarkable without e vidence of aneurysm. The bilateral proximal framing consultant appear patent as seen. No sizable posterior communic ating arteries can be identified. No intracranial large vessel occlusion, hemodynamically significant stenosis, aneurysm, dissection, o r arteriovenous malformation is shown. The dural venous sinuses appear grossly patent without evidence of thrombosis. Other: Please refer to same-day CT head report.. IMPRESSION: 1. Patent CTA head and neck. 2. Mostly calcified plaque at the carotid bifurcations and proximal ICAs with up to 50% diameter danica nosis bilaterally. 3. No evidence of dissection or pseudoaneurysm of the carotid or vertebral arteries in the neck. 4. No intracranial large vessel occlusion, significant stenosis, or sizable aneurysm detected in the limits of CTA. 5. Heterogeneous 3.4 x 2.5 cm right thyroid nodule. Recommend outpatient thyroid ultrasound for furt her evaluation.
[2024-03-24] MEDS: MORPHINE SULFATE 4 MG/ML SYRINGE IVP STA (22:00)
[2024-03-24] MEDS: LIDOCAINE 1% INJ 10MG/ML (20 ML MDV) SQ ONE (22:04)
[2024-03-24] MEDS ORDERED: NALOXONE 0.4 MG/ML 1 ML VIAL IV PRN (22:41)
--- NOTE | 2024-03-24 22:56 | XR ---
EXAMINATION TYPE: XR chest 2V DATE OF EXAM: 03/24/2024 9:31 PM CLINICAL INDICATION:Female, 68 years old with history of Weakness; PHH COMPARISON: None TECHNIQUE: XR chest 2V. Frontal and lateral views of the chest.. FINDINGS: Lines/Tubes/Devices: No indwelling lines are seen. Heart/mediastinum: Heart appears moderately enlarged. Tortuous ectatic aorta. Pulmonary vascularity: Pulmonary vascular congestion. Increased interstitial markings can be seen wit h edema or pneumonitis. An element of chronic change is possible. Lungs/Pleura: Bibasilar hazy opacities greatest on the left with partially obscured CP angles mostly on the left. Some fluid is suggested along the fissure on the right. No pneumothorax evident. Musculoskeletal: No acute osseous abnormality demonstrated in the limits of the exam. Degenerative c hanges of the spine and shoulders. Other findings: None. IMPRESSION: 1. Cardiomegaly with central vascular congestion. 2. Bibasilar opacities, left greater than right, could present edema and atelectasis with pleural ef fusions. Pneumonia not excluded in the proper setting.
--- NOTE | 2024-03-24 23:00 | XR ---
EXAMINATION TYPE: XR Hip LT and AP Pelvis DATE OF EXAM: 03/24/2024 9:47 PM CLINICAL INDICATION:Female, 68 years old with history of left groin pain, fall; PHH COMPARISON: None. TECHNIQUE: The left hip was examined in the frontal and lateral projections and a AP pelvis. FINDINGS: Degenerative changes lower lumbar spine. Mild bilateral hip arthropathy. No acute fracture lucency or dislocation. Unremarkable soft tissues without radiopaque foreign body seen. Contrast seen in the bladder from recent administration. Pelvic phleboliths and arteriovascular calci fications. Exam is limited by patient body habitus. If concern persists CT would be advised. IMPRESSION: No visualized acute fracture or dislocation.
--- NOTE | 2024-03-24 23:02 | XR ---
EXAMINATION TYPE: XR knee 4V RT DATE OF EXAM: 03/24/2024 9:46 PM CLINICAL INDICATION:Female, 68 years old with history of fall laceration; PHH COMPARISON: None. TECHNIQUE: XR knee 4V RT; examined in Frontal, lateral and oblique projections. FINDINGS: Mild tricompartmental osteoarthropathy. Preserved patellofemoral alignment. No acute fracture or disl ocation is seen. No sizable knee joint effusion. Mild to moderate arterial vascular calcifications. R eported soft tissue injury is not readily visible. No radiopaque foreign body is seen. IMPRESSION: No acute radiographic abnormality of the right knee.
[2024-03-25] MEDS: SODIUM CHLORIDE 0.9% 500 ML 500 ML IV STA (00:30)
[2024-03-25] MEDS: SODIUM CHLORIDE 0.9% 1,000 ML IV SCH ×2 (01:08→01:40)
[2024-03-25] MEDS: MIDAZOLAM 2 MG/2 ML VIAL IV ONE (01:39)
[2024-03-25 02:05] LABS: African American GFR (CKD) 88 (>60 ml/min/1.73 sqM); Anion Gap 3 mmol/L; Blood Urea Nitrogen 24 mg/dL (7-17); Calcium 9.5 mg/dL (8.4-10.2); Carbon Dioxide 31 mmol/L (22-30); Chloride 95 mmol/L (98-107); Glucose 55 mg/dL (74-99); Non-African American GFR(CKD) 76 (>60 ml/min/1.73 sqM); Potassium 4.8 mmol/L (3.5-5.1); Sodium 129 mmol/L (137-145)
[2024-03-25 03:16] LABS: Glucose,Whole Blood 66 mg/dL (70-110)
[2024-03-25 04:06] LABS: Glucose,Whole Blood 71 mg/dL (70-110)
[2024-03-25 04:15] LABS: Appearance,Urine Clear (Clear); Bilirubin,Urine Negative (Negative); Blood,Urine Negative (Negative); Color,Urine Colorless; Glucose,Urine (UA) Negative (Negative); Ketones,Urine Negative (Negative); Leukocyte Esterase,Urine Negative (Negative); Nitrite,Urine Negative (Negative); PH, Urine 5.5 (5.0-8.0); Protein,Urine Negative (Negative); Specific Gravity,Urine 1.014 (1.001-1.035); Urobilinogen,Urine <2.0 mg/dL (<2.0)
[2024-03-25 05:04] LABS: Basophils # (A) 0.1 k/uL (0-0.2); Basophils % (A) 1 %; Eosinophils # (A) 0.3 k/uL (0-0.7); Eosinophils % (A) 3 %; HGB 12.4 gm/dL (11.4-16.0); Lymphocytes # (A) 1.9 k/uL (1.0-4.8); Lymphocytes % (A) 22 %; MCH 30.7 pg (25.0-35.0); MCV 99.2 fL (80.0-100.0); Mean Platelet Volume 8.2; Monocytes # (A) 0.9 k/uL (0-1.0); Monocytes % (A) 10 %; Neutrophils # (A) 5.3 k/uL (1.3-7.7); Neutrophils % (A) 62 %; Platelet Count 343 k/uL (150-450); RBC 4.04 m/uL (3.80-5.40); RDW 13.5 % (11.5-15.5); WBC 8.6 k/uL (3.8-10.6)
[2024-03-25 05:18] LABS: ALT 32 U/L (4-34); AST 37 U/L (14-36); African American GFR (CKD) >90 (>60 ml/min/1.73 sqM); Albumin 3.5 g/dL (3.5-5.0); Alkaline Phosphatase 67 U/L (38-126); Blood Urea Nitrogen 21 mg/dL (7-17); Calcium 9.7 mg/dL (8.4-10.2); Carbon Dioxide 32 mmol/L (22-30); Glucose 60 mg/dL (74-99); Magnesium 1.6 mg/dL (1.6-2.3); Non-African American GFR(CKD) 80 (>60 ml/min/1.73 sqM); Potassium 5.1 mmol/L (3.5-5.1); Sodium 130 mmol/L (137-145); Total Bilirubin 0.5 mg/dL (0.2-1.3); Total Protein 5.6 g/dL (6.3-8.2)
[2024-03-25 05:33] LABS: Anion Gap 3 mmol/L; Chloride 95 mmol/L (98-107)
[2024-03-25 06:01] LABS: Glucose,Whole Blood 70 mg/dL (70-110)
[2024-03-25] MEDS: ONDANSETRON 4 MG/2 ML VIAL IVP PRN (06:51)
[2024-03-25] MEDS: PANTOPRAZOLE 40 MG/10 ML VIAL IV SCH (08:49)
[2024-03-25] MEDS ORDERED: MELATONIN 5 MG TABLET PO PRN (11:00)
[2024-03-25] MEDS ORDERED: ACETAMINOPHEN TAB 325 MG TAB PO PRN (11:00)
[2024-03-25] MEDS ORDERED: ALBUTEROL HFA INHALER INHALATION PRN (11:00)
[2024-03-25 11:42] LABS: Glucose,Whole Blood 107 mg/dL (70-110)
--- NOTE | 2024-03-25 13:27 | P.HPIM ---
History of Present Illness H&P Date: 03/25/24 History of present illness; patient is 68-year-old lady with past medical history significant for hypertension, hypothyroidism, COPD who presented to ER because of dizziness. Patient stated that she was all right yesterday evening when she started noticing that she was getting dizzy and lightheaded and feeling more sleepy, she slid down her wheelchair hitting her right side of her face. Patient stated that she has been noticing that she has blurred vision for the last few days. There was no clear weakness of any extremity. Denies any jerking movement of extremities. There was no complaint of fecal or urine incontinence. EMS brought her to the ER Initial lab work done in the ER showed WBC 8.6, hemoglobin 10.6, platelet count 298, sodium 125, potassium 5.2, BUN 28, creatinine 0.90 magnesium 1.6, bilirubin 0.7 UA negative for any infection EKG done in the ER showed heart rate of 59 , no ST segment elevation or depression seen, no T-wave inversions seen. Chest x-ray done in the ER showed cardiomegaly with central vascular congestion, bibasilar opacities left greater than right. CT head done showed no acute intracranial process CT cervical spine done showed no evidence of acute cervical spine fracture or traumatic malalignment CTA head and neck done showed no significant stenosis, aneurysm or thrombus in the intracranial circulation CT orbit done showedMild right preseptal soft tissue swelling with extension to the right forehead and small focus of subcutaneous gas over the forehead X-ray left hip done showed no visualized acute fracture or dislocation The right knee done showed no acute fractures Patient admitted to internal medicine service REVIEW OF SYSTEMS: CONSTITUTIONAL: No fever, no malaise, no fatigue. HEENT: No recent visual problems or hearing problems. Denied any sore throat. CARDIOVASCULAR: No chest pain, orthopnea, PND, no palpitations, no syncope. PULMONARY: No shortness of breath, no cough, no hemoptysis. GASTROINTESTINAL: No diarrhea, no nausea, no vomiting, no abdominal pain. NEUROLOGICAL: As mentioned above HEMATOLOGICAL: Denies any bleeding or petechiae. GENITOURINARY: Denies any burning micturition, frequency, or urgency. MUSCULOSKELETAL/RHEUMATOLOGICAL: Denies any joint pain, swelling, or any muscle pain. ENDOCRINE: Denies any polyuria or polydipsia. The rest of the 14-point review of systems is negative. PHYSICAL EXAMINATION: GENERAL: The patient is alert and oriented x3, not in any acute distress. Well developed, well nourished. HEENT: Pupils are round and equally reacting to light. EOMI. No scleral icterus. No conjunctival pallor. Normocephalic, atraumatic. No pharyngeal erythema. No thyromegaly. CARDIOVASCULAR: S1 and S2 present. No murmurs, rubs, or gallops. PULMONARY: Chest is clear to auscultation, no wheezing or crackles. ABDOMEN: Soft, nontender, nondistended, normoactive bowel sounds. No palpable organomegaly. MUSCULOSKELETAL: No joint swelling or deformity. EXTREMITIES: No cyanosis, clubbing, or pedal edema. NEUROLOGICAL: Gross neurological examination did not reveal any focal deficits. SKIN: No rashes. Assessment and plan Dizziness Fall Bradycardia Hyponatremia Hyperkalemia Hypertension Hyperlipidemia Hypothyroidism Monitor vital signs Monitor CBC Monitor CMP Continue telemetry monitoring Fall precautions Continue IV fluids Check orthostatics Normotensive, hold blood pressure medications Hold beta-blockers Consult cardiology Consult neurology PT and OT evaluation Labs and medication were reviewed.. Continue same treatment. Continue with symptomatic treatment. Resume home medication. Monitor labs and vitals. DVT and GI prophylaxis. Further recommendations as per clinical course of the patient Dictation was produced using daysoft dictation software. please excuse any grammatical, word or spelling errors. Past Medical History Past Medical History: Asthma, Heart Failure, COPD, Fibromyalgia, GERD/Reflux, Hypertension, Osteoarthritis (OA), Pneumonia, Pulmonary Embolus (PE), Skin Disorder, Thyroid Disorder Additional Past Medical History / Comment(s): Spinal Stenosis, Cervical disc disease/stenosis, scoliosis, recently having numbness/tingling L side of face/neck, recently saw coupling machine operator for L hemidiaphragmatic elevation-pt states she was told this was probably genetic, recently bronchitis and past bronchitis, pt states recent med change (water pill) d/t electrolyte p roblem/kidney function being affected, pt states she has had pulmonary emboli, past bilateral lower extremity cellulitis, edema lower extremities, IBS, hemorrhoids, benign colon polyps, sinus problems, UTIs, bacteremia/sepsis, cardiac murmur, past L ankle and L wrist fractures. History of Any Multi-Drug Resistant Organisms: None Reported Past Surgical History: Bariatric Surgery, Section, Cholecystectomy, Hysterectomy, Tonsillectomy Additional Past Surgical History / Comment(s): EGD, colonoscopies, gastric bypas s, surgery for deviated septum, left cataract removal (having laser procedure on that eye 11/24/23) Past Anesthesia/Blood Transfusion Reactions: Previous Problems w/ Anesthesia Additional Past Anesthesia/Blood Transfusion Reaction / Comment(s): itching after hysterectomy, some kind of breathing problem after gastric bypass-not sure what happened Past Psychological History: Anxiety, Bipolar, Depression, Panic Disorder Smoking Status: Current every day smoker Past Alcohol Use History: None Reported Past Drug Use History: Marijuana - Past Family History Mother Family Medical History: Congestive Heart Failure (CHF), Hypertension Father History Unknown: Yes Additional Family Medical History / Comment(s): Father at the age of 45 yrs d/t having had rheumatic fever as a child and heart valve disease. Medications and Allergies Home Medications Medication Instructions Recorded Confirmed Type Montelukast [Singulair] 10 mg PO HS 12/17/13 03/25/24 History Levothyroxine Sodium [Synthroid] 150 mcg PO DAILY 03/29/20 03/25/24 History Budesonide/Formoterol Fumarate 2 puff INHALATION RT-BID 06/12/21 03/25/24 History [Symbicort 160-4.5 Mcg Inhaler] Famotidine [Pepcid] 20 mg PO BID 09/03/21 03/25/24 History Divalproex ER [Depakote ER] 250 mg PO HS 10/07/21 03/25/24 History Tamsulosin [Flomax] 0.4 mg PO DAILY@1200 10/26/21 03/25/24 History Ferrous Sulfate [Iron (65 MG 325 mg PO DAILY 11/13/22 03/25/24 History Elemental)] Ipratropium-Albuterol Nebulize 3 ml INHALATION RT-QID PRN 11/13/22 03/25/24 History [Duoneb 0.5 mg-3 mg/3 ml Soln] Metoprolol Tartrate [Lopressor] 25 mg PO BID 11/13/22 03/25/24 History Thiamine [Vitamin B-1] 100 mg PO DAILY@1700 11/13/22 03/25/24 History Albuterol Inhaler [Ventolin Hfa 2 puff INHALATION RT-QID PRN #1 11/17/22 03/25/24 Rx Inhaler] each Ibandronate Sodium [Boniva] 150 mg PO Q30D 05/03/23 03/25/24 History Melatonin 5 mg PO HS PRN 05/03/23 03/25/24 History lisinopriL [Zestril] 20 mg PO DAILY 05/03/23 03/25/24 History Acetaminophen [Tylenol Arthritis] 650 mg PO Q4HR PRN 10/24/23 03/25/24 History amLODIPine [Norvasc] 5 mg PO DAILY 12/12/23 03/25/24 History clonazePAM [KlonoPIN ODT] 0.25 mg PO HS 12/12/23 03/25/24 History OLANZapine [ZyPREXA] 15 mg PO HS 01/22/24 03/25/24 History Albuterol Nebulized [Ventolin 5 mg INHALATION RT-QID PRN #60 each 01/24/24 03/25/24 Rx Nebulized] Naproxen [Naprosyn] 500 mg PO BID 30 Days #60 tablet 02/16/24 03/25/24 Rx HYDROcodone/APAP 5-325MG [[place] 1 tab PO Q6HR PRN 3 Days #12 tab 03/15/24 03/25/24 Rx 5-325] Folic Acid 1 mg PO DAILY@1700 03/18/24 03/25/24 History Venlafaxine HCl ER [Effexor XR] 150 mg PO DAILY 03/18/24 03/25/24 History hydrOXYzine HCL [Atarax] 25 mg PO BID 03/18/24 03/25/24 History lamoTRIgine [LaMICtal] 150 mg PO BID 03/18/24 03/25/24 History Cefuroxime [Ceftin] 500 mg PO BID 03/25/24 03/25/24 History Allergies Allergy/AdvReac Type Severity Reaction Status Date / Time codeine Allergy Unknown Verified 03/25/24 08:33 Childhood Penicillins Allergy Rash/Hives Verified 03/25/24 08:33 Sulfa (Sulfonamide Allergy Rash/Hives Verified 03/25/24 08:33 Antibiotics) Physical Exam Vitals: Vital Signs Temp Pulse Resp BP Pulse Ox 03/25/24 06:51 98.5 F 69 22 122/57 93 L 03/25/24 03:00 69 18 121/67 96 03/25/24 00:00 58 L 18 107/50 97 03/24/24 23:00 54 L 18 104/50 97 03/24/24 20:00 61 18 102/60 97 03/24/24 17:24 98.2 F 59 L 18 99/60 98 Intake and Output 03/24/24 03/25/24 03/25/24 22:59 06:59 14:59 Output Total 900 Balance -900 Output: Urine 900 Other: # Bowel Movements 0 Weight 63.049 kg Results CBC & Chem 7: 03/25/24 04:14 03/25/24 04:14 Labs: Abnormal Lab Results - Last 24 Hours (Table) 03/24/24 03/24/24 03/24/24 Range/Units 18:57 18:57 18:57 RBC 3.39 L (3.80-5.40) m/uL Hgb 10.6 L (11.4-16.0) gm/dL Hct 32.8 L (34.0-46.0) % APTT 32.1 H (22.0-30.0) sec Sodium 125 L (137-145) mmol/L Potassium 5.2 H (3.5-5.1) mmol/L Chloride 91 L (98-107) mmol/L Carbon Dioxide (22-30) mmol/L BUN 28 H (7-17) mg/dL Glucose 72 L (74-99) mg/dL POC Glucose (mg/dL) (70-110) mg/dL AST (14-36) U/L Total Protein 5.2 L (6.3-8.2) g/dL Albumin 3.1 L (3.5-5.0) g/dL 03/25/24 03/25/24 03/25/24 Range/Units 01:40 03:12 04:14 RBC (3.80-5.40) m/uL Hgb (11.4-16.0) gm/dL Hct (34.0-46.0) % APTT (22.0-30.0) sec Sodium 129 L 130 L (137-145) mmol/L Potassium (3.5-5.1) mmol/L Chloride 95 L 95 L (98-107) mmol/L Carbon Dioxide 31 H 32 H (22-30) mmol/L BUN 24 H 21 H (7-17) mg/dL Glucose 55 L 60 L (74-99) mg/dL POC Glucose (mg/dL) 66 L (70-110) mg/dL AST 37 H (14-36) U/L Total Protein 5.6 L (6.3-8.2) g/dL Albumin (3.5-5.0) g/dL
[2024-03-25] MEDS: TAMSULOSIN 0.4 MG CAP.ER.24H PO SCH (14:14)
[2024-03-25] MEDS: HYDROcodone/APAP 5-325MG 1 EACH TAB PO PRN (16:14)
[2024-03-25] MEDS: FOLIC ACID 1 MG TAB PO SCH (16:14)
[2024-03-25] MEDS: THIAMINE 100 MG TAB PO SCH (16:14)
[2024-03-25] MEDS: SYMBICORT 160-4.5 MCG INHALER INHALATION SCH (19:35)
[2024-03-25 19:52] LABS: Glucose,Whole Blood 162 mg/dL (70-110)
[2024-03-25] MEDS: MORPHINE SULFATE 4 MG/ML SYRINGE IV PRN (20:22)
[2024-03-25] MEDS: FAMOTIDINE 20 MG TAB PO SCH (22:43)
[2024-03-25] MEDS: MONTELUKAST 10 MG TAB PO SCH (22:43)
[2024-03-25] MEDS: clonazePAM 0.5 MG TAB PO SCH (22:43)
[2024-03-25] MEDS: lamoTRIgine 100 MG TAB PO SCH (22:44)
[2024-03-25] MEDS: OLANZapine 7.5 MG TAB PO SCH (22:47)
[2024-03-25] MEDS: hydrOXYzine HCL 25 MG TAB PO SCH (22:47)
[2024-03-25] MEDS: DIVALPROEX ER 250 MG TAB.ER.24H PO SCH (22:49)
[2024-03-26] MEDS: LEVOTHYROXINE 75 MCG TAB PO SCH (05:46)
[2024-03-26 07:18] LABS: Glucose,Whole Blood 93 mg/dL (70-110)
[2024-03-26] MEDS: FERROUS SULFATE 325 MG TAB PO SCH (07:42)
[2024-03-26] MEDS: VENLAFAXINE HCL ER 150 MG CAP PO SCH (09:18)
--- NOTE | 2024-03-26 11:55 | P.CNNES ---
History of Present Illness Consult date: 03/26/24 Requesting physician: Richie Merchant Reason for Consult: dizziness History of Present Illness: This is a 68-year-old woman with history of chronic low back pain, chronic hyponatremia, new onset occipital headache, hypertension, hypothyroidism chronic pain, polypharmacy who presents to the emergency department because of dizzi ness. He is a poor historian on and unable to provide significant history but she stated that she felt from her chair in her house on the floor and does not know what happened and denies recalling losing consciousness. Denies urinary or bowel incontinence. Per the nursing staff the patient is confused. Per medical record it seems to the patient present because of dizziness and it seems the nig ht before presentation she started noticing that she is getting dizzy lightheaded and feeling more sleepy and she slid down her wheelchair hitting the right side of her face. She also has been noticing that she has blurred vision for the last few days. No clear focal weakness. Denies any jerking of any extremities. Patient denies any history of seizure. Patient was recently seen by my colleague during her recent admission in our facility and was last seen on 03/22/2024 stated the patient has new onset bilateral occipital headache paresthesia in the occipital nerve distribution and posterior neck pain likely occipital neuralgia/neuropathy. And he stated that the MRI cervical spine revealed severe spinal stenosis secondary due to increased lordotic curvature. And he felt probable cervical myelopathy. Patient was started on gabapentin 300 mg 3 times daily and he recommends CT of the head but it seems per his note the patient was adamant that she wants to have an outpatient. Please refer to his note for further details. Some of the workup during this hospital visit consisted of: White blood cell is within normal limits Sodium is 130. On 03/24/2024 her sodium was as low as 125. About 5 months ago it was as low as 129 as well as on 12/12/2023 was as low as 125. Glucose during this hospital visit was as low as 55 on presentation was 72 and most recent is [address] of the head is reported as no acute intracranial CT abnormality. Atrophy and chronic microvascular ischemia changes. CT cervical spine is reported as no evidence of acute cervical spine fracture or traumatic malalignment. Moderate cervical spondylosis described above and recent MRI. CT orbit is reported as mild right precentral soft tissue swelling with extension to the right forehead and small focus of subcutaneous gas over the forehead. No radiopaque foreign body. No evidence of orbital fracture or any acute intraorbital abnormality CTA of the head and neck is reported as patent CT angiography of the head and neck. Mostly calcified plaque at the carotid bifurcation in the proximal ICA with up to 50% diameter stenosis bilaterally. No evidence of dissection or pseudoaneurysm of the carotid or vertebral artery in the neck. No intracranial large vessel occlusion, significant stenosis or sizable aneurysm detected in limits of CTA. Heterogeneous 3.4 x 2.5 cm right thyroid nodule. 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 History of Any Multi-Drug Resistant Organisms: None Reported Past Surgical History: Bariatric Surgery, Section, Cholecystectomy, Hysterectomy, Tonsillectomy Additional Past Surgical History / Comment(s): EGD, colonoscopies, gastric bypass, surgery for deviated septum, left cataract removal (having laser procedure on that eye 11/24/23) Past Anesthesia/Blood Transfusion Reactions: Previous Problems w/ Anesthesia Additional Past Anesthesia/Blood Transfusion Reaction / Comment(s): itching after hysterectomy, some kind of breathing problem after gastric bypass-not sure what happened Past Psychological History: Anxiety, Bipolar, Depression, Panic Disorder Smoking Status: Current every day smoker Past Alcohol Use History: None Reported Additional Past Alcohol Use History / Comment(s): Pt started smoking in 1986 and quit when she went into [facility] 08/2021, started again after discharge from [facility] 05/2022 Past Drug Use History: Marijuana Additional Drug Use History / Comment(s): occassional cannabis use per pt - Past Family History Mother Family Medical History: Congestive Heart Failure (CHF), Hypertension Father History Unknown: Yes Additional Family Medical History / Comment(s): Father at the age of 45 yrs d/t having had rheumatic fever as a child and heart valve disease. Medications and Allergies Home Medications Medication Instructions Recorded Confirmed Type Montelukast [Singulair] 10 mg PO HS 12/17/13 03/25/24 History Levothyroxine Sodium [Synthroid] 150 mcg PO DAILY 03/29/20 03/25/24 History Budesonide/Formoterol Fumarate 2 puff INHALATION RT-BID 06/12/21 03/25/24 History [Symbicort 160-4.5 Mcg Inhaler] Famotidine [Pepcid] 20 mg PO BID 09/03/21 03/25/24 History Divalproex ER [Depakote ER] 250 mg PO HS 10/07/21 03/25/24 History Tamsulosin [Flomax] 0.4 mg PO DAILY@1200 10/26/21 03/25/24 History Ferrous Sulfate [Iron (65 MG 325 mg PO DAILY 11/13/22 03/25/24 History Elemental)] Ipratropium-Albuterol Nebulize 3 ml INHALATION RT-QID PRN 11/13/22 03/25/24 History [Duoneb 0.5 mg-3 mg/3 ml Soln] Metoprolol Tartrate [Lopressor] 25 mg PO BID 11/13/22 03/25/24 History Thiamine [Vitamin B-1] 100 mg PO DAILY@1700 11/13/22 03/25/24 History Albuterol Inhaler [Ventolin Hfa 2 puff INHALATION RT-QID PRN #1 11/17/22 03/25/24 Rx Inhaler] each Ibandronate Sodium [Boniva] 150 mg PO Q30D 05/03/23 03/25/24 History Melatonin 5 mg PO HS PRN 05/03/23 03/25/24 History lisinopriL [Zestril] 20 mg PO DAILY 05/03/23 03/25/24 History Acetaminophen [Tylenol Arthritis] 650 mg PO Q4HR PRN 10/24/23 03/25/24 History amLODIPine [Norvasc] 5 mg PO DAILY 12/12/23 03/25/24 History clonazePAM [KlonoPIN ODT] 0.25 mg PO HS 12/12/23 03/25/24 History OLANZapine [ZyPREXA] 15 mg PO HS 01/22/24 03/25/24 History Albuterol Nebulized [Ventolin 5 mg INHALATION RT-QID PRN #60 each 01/24/24 03/25/24 Rx Nebulized] Naproxen [Naprosyn] 500 mg PO BID 30 Days #60 tablet 02/16/24 03/25/24 Rx HYDROcodone/APAP 5-325MG [Gervais 1 tab PO Q6HR PRN 3 Days #12 tab 03/15/24 03/25/24 Rx 5-325] Folic Acid 1 mg PO DAILY@1700 03/18/24 03/25/24 History Venlafaxine HCl ER [Effexor XR] 150 mg PO DAILY 03/18/24 03/25/24 History hydrOXYzine HCL [Atarax] 25 mg PO BID 03/18/24 03/25/24 History lamoTRIgine [LaMICtal] 150 mg PO BID 03/18/24 03/25/24 History Cefuroxime [Ceftin] 500 mg PO BID 03/25/24 03/25/24 History Allergies Allergy/AdvReac Type Severity Reaction Status Date / Time codeine Allergy Unknown Verified 03/25/24 08:33 Childhood Penicillins Allergy Rash/Hives Verified 03/25/24 08:33 Sulfa (Sulfonamide Allergy Rash/Hives Verified 03/25/24 08:33 Antibiotics) Physical Examination - Vital Signs Vital Signs: Vital Signs Temp Pulse Pulse Resp BP BP Pulse Ox 03/26/24 07:53 94 L 03/26/24 07:06 98.2 F 78 18 145/67 93 L 03/26/24 03:44 78 18 03/26/24 01:46 98.6 F 78 18 134/75 95 03/25/24 20:19 81 18 133/72 95 03/25/24 19:38 82 18 120/60 95 03/25/24 18:00 78 18 109/73 94 L Intake and Output 03/25/24 03/26/24 03/26/24 22:59 06:59 14:59 Other: Voiding Method Diaper External Catheter # Voids 2 Weight 63.049 kg General: Lying in bed and does not appear in acute distress but states is anxious. HENT: Supple neck. Has bruise over the right eye/orbit/v2. Extremities: Has bruise over the right knee Neuro: Limited. The patient is alert oriented to self place and time. At times she is slow responding. No aphasia from limited language Pupils are round equal reactive to light. Pupils are round 3 to 4 mm bilaterally. Visual flores are full to confrontation. Extraocular movements intact no nystagmus. No facial weakness. Motor is limited assessing individual muscle strength but is able to lift up arms and briefly the legs above gravity and there is does not appear any focal deficit but again limited Sensation unable to assess because of her cooperation Cerebellar unable to assess because of her cooperation Reflexes unable to assess because of her cooperation Plantars are mute bilaterally Results - Laboratory Findings CBC and BMP: 03/25/24 04:14 03/25/24 04:14 Abnormal Lab Findings: Abnormal Labs 03/24/24 03/24/24 03/24/24 18:57 18:57 18:57 RBC 3.39 L Hgb 10.6 L Hct 32.8 L APTT 32.1 H Sodium 125 L Potassium 5.2 H Chloride 91 L Carbon Dioxide BUN 28 H Glucose 72 L POC Glucose (mg/dL) AST Total Protein 5.2 L Albumin 3.1 L Urine Osmolality 03/25/24 03/25/24 03/25/24 01:40 03:12 03:57 RBC Hgb Hct APTT Sodium 129 L Potassium Chloride 95 L Carbon Dioxide 31 H BUN 24 H Glucose 55 L POC Glucose (mg/dL) 66 L AST Total Protein Albumin Urine Osmolality 217 L 03/25/24 03/25/24 04:14 19:50 RBC Hgb Hct APTT Sodium 130 L Potassium Chloride 95 L Carbon Dioxide 32 H BUN 21 H Glucose 60 L POC Glucose (mg/dL) 162 H AST 37 H Total Protein 5.6 L Albumin Urine Osmolality Assessment and Plan Assessment: This is a 68-year-old woman who presents to the emergency department on 03/24/2024 because of dizziness. Seems patient noticed that she was feeling dizzy lightheaded feeling more sleepy and she slid down off her wheelchair hitting her right side of the face and she has been having blurred vision last few days. No noticeable focal deficit. She was confused. Denies any history of seizure. Has ongoing hyponatremia as well as during this hospital visit has hypoglycemia as well as 55s on presentation over 72. As a result of a fall patient has a bruise over the right orbital as well as knee. CT of the head is unremarkable for any acute or subacute stroke. Patient had a recentAdmission to our facility and was evaluated by my colleague last on 03/22/2024 and he felt the patient has new onset occipital Schreckinger. Patient also has severe spinal canal stenosis with probable cervical myelopathy on the recent admission. Recent falling off her wheel chair having dizziness, blurred vision last few days and being more sleepy: Unsure exact etiology. Rule out stroke vs seizure vs other central process vs due to metabolic derangement. Has metabolic derangement leading to her metabolic encephalopathy (hypoglycemia in the mid 50s as well as hyponatremia) Ongoing hyponatremia Episodes of hypoglycemia Severe cervical stenosis on recent prior admission and concern for cervical myelopathy New onset bilateral occipital neuralgia per Dr. Leon vitamin B6 deficiency on 03/20/2024 (level of 3) Chronic lower back pain Severe anxiety Tobacco use Chronic pain Polypharmacy Plan: I ordered MRI of the brain with and without I ordered routine EEG Patient had recent vitamin B6 deficiency on 03/20/2024 therefore I will start the patient on vitamin B6 50 mg nightly Patient had a recent vitamin B12 and folate which were normal. I ordered ammonia level Is on home medication of Lamictal 150 mg twice daily, Klonopin 0.25 mg nightly, Depakote 250 mg nightly Avoid any further episodes of hypoglycemia and recommend controlling the h yponatremia. Cardiology is consulted for the bradycardia but it is as low as in the 50s and unsure if this is the cause. Will defer the rest of the medical management the primary and other specialist. Plan discussed with the patient's nurse Thank for the consultation Time with Patient: Greater than 30
[2024-03-26 12:11] LABS: Glucose,Whole Blood 215 mg/dL (70-110)
[2024-03-26] MEDS: PYRIDOXINE 50 MG TAB PO SCH (12:45)
--- NOTE | 2024-03-26 13:36 | P.PN ---
Subjective Progress Note Date: 03/26/24 patient is 68-year-old lady with past medical history significant for hypertension, hypothyroidism, COPD who presented to ER because of dizziness. Patient stated that she was all right yesterday evening when she started noticing that she was getting dizzy and lightheaded and feeling more sleepy, she slid down her wheelchair hitting her right side of her face. Patient stated that she has been noticing that she has blurred vision for the last few days. There was no clear weakness of any extremity. Denies any jerking movement of extremities. There was no complaint of fecal or urine incontinence. EMS brought her to the ER Initial lab work done in the ER showed WBC 8.6, hemoglobin 10.6, platelet count 298, sodium 125, potassium 5.2, BUN 28, creatinine 0.90 magnesium 1.6, bilirubin 0.7 UA negative for any infection EKG done in the ER showed heart rate of 59 , no ST segment elevation or depressi on seen, no T-wave inversions seen. Chest x-ray done in the ER showed cardiomegaly with central vascular congestion, bibasilar opacities left greater than right. CT head done showed no acute intracranial process CT cervical spine done showed no evidence of acute cervical spine fracture or traumatic malalignment CTA head and neck done showed no significant stenosis, aneurysm or thrombus in the intracranial circulation CT orbit done showedMild right preseptal soft tissue swelling with extension to the right forehead and small focus of subcutaneous gas over the forehead X-ray left hip done showed no visualized acute fracture or dislocation The right knee done showed no acute fractures Patient admitted to internal medicine service 03/26. Patient seen and examined. Bradycardia improved by holding AV apollo blocking agents. Neurology evaluated, ordered MRI and EEG. REVIEW OF SYSTEMS: CONSTITUTIONAL: No fever, no malaise,. CARDIOVASCULAR: No chest pain, no palpitations, no syncope. PULMONARY: No shortness of breath, no cough, GASTROINTESTINAL: No diarrhea, no nausea, no vomiting, no abdominal pain. NEUROLOGICAL: No headaches, no weakness, PHYSICAL EXAMINATION: GENERAL: The patient is alert and oriented x3, not in any acute distress. Ill looking HEENT: Pupils are round and equally reacting to light. EOMI. No scleral icterus. No conjunctival pallor. Normocephalic, atraumatic. No pharyngeal erythema. No thyromegaly. CARDIOVASCULAR: S1 and S2 present. No murmurs, rubs, or gallops. PULMONARY: Chest is clear to auscultation, no wheezing or crackles. ABDOMEN: Soft, nontender, nondistended, normoactive bowel sounds. No palpable organomegaly. MUSCULOSKELETAL: No joint swelling or deformity. Right knee bandage seen EXTREMITIES: No cyanosis, clubbing, or pedal edema. NEUROLOGICAL: Gross neurological examination did not reveal any focal deficits. SKIN: No rashes. Assessment and plan Dizziness Fall Bradycardia Hyponatremia Hyperkalemia Hypertension Hyperlipidemia Hypothyroidism Monitor vital signs Monitor CBC Monitor CMP Continue telemetry monitoring Encourage use of incentive spirometer Check orthostatics continue IV fluids Continue Synthroid Ordered EEG Ordered MRI brain Continue Lamictal, Depakote Neurology consulted Cardiology consulted Labs and medication were reviewed.. Continue same treatment. Continue with symptomatic treatment. Resume home medication. Monitor labs and vitals. DVT and GI prophylaxis. Further recommendations as per clinical course of the patient Dictation was produced using [employer] dictation software. please excuse any grammatical, word or spelling errors. Objective - Vital Signs Vital signs: Vital Signs Temp 98.2 F 03/26/24 07:06 Pulse 78 03/26/24 07:06 Resp 18 03/26/24 07:06 BP 145/67 03/26/24 07:06 Pulse Ox 94 L 03/26/24 07:53 FiO2 Intake & Output 03/25/24 03/26/24 03/26/24 18:59 06:59 18:59 Output Total 800 Balance -800 Weight 63.049 kg Output: Urine 800 Other: Voiding Method Diaper External Catheter # Voids 2 - Labs CBC & Chem 7: 03/25/24 04:14 03/25/24 04:14 Labs: Abnormal Lab Results - Last 24 Hours (Table) 03/25/24 03/25/24 Range/Units 03:57 19:50 POC Glucose (mg/dL) 162 H (70-110) mg/dL Urine Osmolality 217 L (400-1100) mOsm/kg
[2024-03-26 17:00] LABS: Glucose,Whole Blood 141 mg/dL (70-110)
--- NOTE | 2024-03-26 19:31 | P.CRDCN ---
History of Present Illness Consult date: 03/26/24 History of present illness: HISTORY OF PRESENTING ILLNESS Patient is a 68-year-old with PMH of hypertension, hypothyroidism, COPD presented to the hospital because of worsening dizziness. Patient reports that she has been feeling more dizzy, lightheaded and sleepy. She slid down her wheelchair and hit the right side of her face. She has been noticing this for last couple of days. She denies any elvira syncopal episode or passing out spells. ECG shows heart rate of 59 bpm, sinus rhythm, no significant blocks, no significant ST-T wave changes that are concerning of acute ischemia Chest x-ray does not show any signs of consolidation. Shows mild cardiomegaly a nd mild central vascular congestion. Cardiology was consulted for bradycardia evaluation. REVIEW OF SYSTEMS 14 point review of system is negative except what is mentioned above in HPI. PHYSICAL EXAMINATION Vital signs reviewed. Head: Normocephalic. Eyes: Sclerae nonicteric. Neck: Brisk carotid upstroke, no jugular venous distention. Lungs: Diminished breath sounds due to poor respiratory effort, mild crackles audible in bilateral bases Heart: Regular rate and rhythm, S1-S2 is audible, mild systolic murmur audible . Abdomen: Soft nontender, positive bowel sounds. Extremities: No edema, intact distal pulses. Neuro: Alert, oritented, no focal deficits. Detailed neuro exam was not performed. ASSESSMENT Fall, less likely cardiac Dizziness and lightheadedness Sinus bradycardia Electrolyte imbalance with hyponatremia hyperkalemia History of hypertension Dyslipidemia Hypothyroidism Relevant labs TSH 4.2, NT-proBNP 1100, troponins negative PLAN Patient is on metoprolol 25 mg twice daily at home. Will discontinue it Avoid any further AV apollo blocking agents Ambulate patient to see if patient has any chronotropic competence Obtain orthostatic vital signs Obtain echocardiogram Continue telemetry monitoring to look for any other arrhythmias or blocks or pauses. For hypertension she is on lisinopril 20 mg and amlodipine 5 mg. Will continue. No clinical fluid overload Bradford Goode MD, FACC, RPVI Thank you for allowing [facility] to participate in this patient's care. Feel free to reach out in case of any followup questions. Past Medical History Past Medical History: Asthma, Heart Failure, COPD, Fibromyalgia, GERD/Reflux, Hypertension, Osteoarthritis (OA), Pneumonia, Pulmonary Embolus (PE), Skin Disorder, Thyroid Disorder Additional Past Medical History / Comment(s): Spinal Stenosis, Cervical disc disease/stenosis, scoliosis, recently having numbness/tingling L side of face/neck, recently saw animal warden for L hemidiaphragmatic elevation-pt states she was told this was probably genetic, recently bronchitis and past bronchitis, pt states recent med change (water pill) d/t electrolyte problem/kidney function being affected, pt states she has had pulmonary emboli, past bilateral lower extremity cellulitis, edema lower extremities, IBS, hemorrhoids, benign colon polyps, sinus problems, UTIs, bacteremia/sepsis, cardiac murmur, past L ankle and L wrist fractures. History of Any Multi-Drug Resistant Organisms: None Reported Past Surgical History: Bariatric Surgery, Section, Cholecystectomy, Hysterectomy, Tonsillectomy Additional Past Surgical History / Comment(s): EGD, colonoscopies, gastric bypass, surgery for deviated septum, left cataract removal (having laser procedure on that eye 11/24/23) Past Anesthesia/Blood Transfusion Reactions: Previous Problems w/ Anesthesia Additional Past Anesthesia/Blood Transfusion Reaction / Comment(s): itching after hysterectomy, some kind of breathing problem after gastric bypass-not sure what happened Past Psychological History: Anxiety, Bipolar, Depression, Panic Disorder Smoking Status: Current every day smoker Past Alcohol Use History: None Reported Additional Past Alcohol Use History / Comment(s): Pt started smoking in 1986 and quit when she went into [facility] 08/2021, started again after discharge from [facility] 05/2022 Past Drug Use History: Marijuana Additional Drug Use History / Comment(s): occassional cannabis use per pt - Past Family History Mother Family Medical History: Congestive Heart Failure (CHF), Hypertension Father History Unknown: Yes Additional Family Medical History / Comment(s): Father at the age of 45 yrs d/t having had rheumatic fever as a child and heart valve disease. Medications and Allergies Home Medications Medication Instructions Recorded Confirmed Type Montelukast [Singulair] 10 mg PO HS 12/17/03/25/24 History Levothyroxine Sodium [Synthroid] 150 mcg PO DAILY 03/29/20 03/25/24 History Budesonide/Formoterol Fumarate 2 puff INHALATION RT-BID 06/12/21 03/25/24 History [Symbicort 160-4.5 Mcg Inhaler] Famotidine [Pepcid] 20 mg PO BID 09/03/21 03/25/24 History Divalproex ER [Depakote ER] 250 mg PO HS 10/07/21 03/25/24 History Tamsulosin [Flomax] 0.4 mg PO DAILY@1200 10/26/21 03/25/24 History Ferrous Sulfate [Iron (65 MG 325 mg PO DAILY 11/13/22 03/25/24 History Elemental)] Ipratropium-Albuterol Nebulize 3 ml INHALATION RT-QID PRN 11/13/22 03/25/24 History [Duoneb 0.5 mg-3 mg/3 ml Soln] Metoprolol Tartrate [Lopressor] 25 mg PO BID 11/13/22 03/25/24 History Thiamine [Vitamin B-1] 100 mg PO DAILY@1700 11/13/22 03/25/24 History Albuterol Inhaler [Ventolin Hfa 2 puff INHALATION RT-QID PRN #1 11/17/22 03/25/24 Rx Inhaler] each Ibandronate Sodium [Boniva] 150 mg PO Q30D 05/03/23 03/25/24 History Melatonin 5 mg PO HS PRN 05/03/23 03/25/24 History lisinopriL [Zestril] 20 mg PO DAILY 05/03/23 03/25/24 History Acetaminophen [Tylenol Arthritis] 650 mg PO Q4HR PRN 10/24/23 03/25/24 History amLODIPine [Norvasc] 5 mg PO DAILY 12/12/23 03/25/24 History clonazePAM [KlonoPIN ODT] 0.25 mg PO HS 12/12/23 03/25/24 History OLANZapine [ZyPREXA] 15 mg PO HS 01/22/24 03/25/24 History Albuterol Nebulized [Ventolin 5 mg INHALATION RT-QID PRN #60 each 01/24/24 03/25/24 Rx Nebulized] Naproxen [Naprosyn] 500 mg PO BID 30 Days #60 tablet 02/16/24 03/25/24 Rx HYDROcodone/APAP 5-325MG [[place] 1 tab PO Q6HR PRN 3 Days #12 tab 03/15/24 03/25/24 Rx 5-325] Folic Acid 1 mg PO DAILY@1700 03/18/24 03/25/24 History Venlafaxine HCl ER [Effexor XR] 150 mg PO DAILY 03/18/24 03/25/24 History hydrOXYzine HCL [Atarax] 25 mg PO BID 03/18/24 03/25/24 History lamoTRIgine [LaMICtal] 150 mg PO BID 03/18/24 03/25/24 History Cefuroxime [Ceftin] 500 mg PO BID 03/25/24 03/25/24 History Allergies Allergy/AdvReac Type Severity Reaction Status Date / Time codeine Allergy Unknown Verified 03/25/24 08:33 Childhood Penicillins Allergy Rash/Hives Verified 03/25/24 08:33 Sulfa (Sulfonamide Allergy Rash/Hives Verified 03/25/24 08:33 Antibiotics) Physical Exam Vitals: Vital Signs Temp Pulse Pulse Resp BP BP Pulse Ox 03/26/24 11:52 98.3 F 85 18 157/71 97 03/26/24 07:53 94 L 03/26/24 07:06 98.2 F 78 18 145/67 93 L 03/26/24 03:44 78 18 03/26/24 01:46 98.6 F 78 18 134/75 95 03/25/24 20:19 81 18 133/72 95 03/25/24 19:38 82 18 120/60 95 Intake and Output 03/26/24 03/26/24 03/26/24 06:59 14:59 22:59 Other: Voiding Method Diaper Diaper External Catheter External Catheter # Voids 0 Weight 63.049 kg Results 03/25/24 04:14 03/25/24 04:14 Current Medications Generic Name Dose Route Start Last Admin Trade Name Freq PRN Reason Stop Dose Admin Acetaminophen 650 mg 03/25/24 11:00 Acetaminophen Tab 325 Mg Tab PO Q4HR PRN Pain Hydrocodone Bitart/Acetaminophen 1 each 03/25/24 11:00 03/26/24 15:37 Hydrocodone/Apap 5-325mg 1 Each Tab PO 1 each Q6HR PRN Administration Pain Albuterol Sulfate 2 puff 03/25/24 11:00 Albuterol Hfa Inhaler INHALATION RT-QID PRN Shortness Of Breath Budesonide/Formoterol Fumarate 2 puff 03/25/24 20:00 03/26/24 19:17 Symbicort 160-4.5 Mcg Inhaler INHALATION 2 puff RT-BID JEIMY Administration Clonazepam 0.25 mg 03/25/24 21:00 03/25/24 22:43 Clonazepam 0.5 Mg Tab PO 0.25 mg HS JEIMY Administration Divalproex Sodium 250 mg 03/25/24 21:00 03/25/24 22:49 Divalproex Er 250 Mg Tab.Er.24h PO 250 mg HS JEIMY Administration Famotidine 20 mg 03/25/24 21:00 03/26/24 07:42 Famotidine 20 Mg Tab PO 20 mg BID JEIMY Administration Ferrous Sulfate 325 mg 03/26/24 09:00 03/26/24 07:42 Ferrous Sulfate 325 Mg Tab PO 325 mg DAILY JEIMY Administration Folic Acid 1 mg 03/25/24 17:00 03/26/24 17:01 Folic Acid 1 Mg Tab PO 1 mg DAILY@1700 JEIMY Administration Hydroxyzine HCl 25 mg 03/25/24 21:00 03/26/24 09:18 Hydroxyzine Hcl 25 Mg Tab PO 25 mg BID JEIMY Administration Sodium Chloride 1,000 mls @ 75 mls/hr 03/24/24 22:45 03/26/24 17:01 Saline 0.9% IV 75 mls/hr .[id number] JEIMY Administration Lamotrigine 150 mg 03/25/24 21:00 03/26/24 07:42 Lamotrigine 100 Mg Tab PO 150 mg BID JEIMY Administration Levothyroxine Sodium 150 mcg 03/26/24 06:30 03/26/24 05:46 Levothyroxine 75 Mcg Tab PO 150 mcg DAILY@0630 JEIMY Administration Melatonin 5 mg 03/25/24 11:00 Melatonin 5 Mg Tablet PO HS PRN Insomnia Montelukast Sodium 10 mg 03/25/24 21:00 03/25/24 22:43 Montelukast 10 Mg Tab PO 10 mg HS JEIMY Administration Morphine Sulfate 4 mg 03/24/24 22:41 03/26/24 05:44 Morphine Sulfate 4 Mg/Ml Syringe IV 4 mg Q4HR PRN Administration Severe Pain (Scale 7 to 10) Naloxone HCl 0.2 mg 03/24/24 22:41 Naloxone 0.4 Mg/Ml 1 Ml Vial IV Q2M PRN Opioid Reversal Olanzapine 15 mg 03/25/24 21:00 03/25/24 22:47 Olanzapine 7.5 Mg Tab PO 15 mg HS JEIMY Administration Ondansetron HCl 4 mg 03/24/24 22:41 03/25/24 06:51 Ondansetron 4 Mg/2 Ml Vial IVP 4 mg Q8HR PRN Administration Nausea And Vomiting Pantoprazole Sodium 40 mg 03/25/24 09:00 03/26/24 09:07 Pantoprazole 40 Mg/10 Ml Vial IV 40 mg DAILY JEIMY Administration Pyridoxine HCl 50 mg 03/26/24 12:00 03/26/24 12:45 Pyridoxine 50 Mg Tab PO 50 mg DAILY JEIMY Administration Tamsulosin HCl 0.4 mg 03/25/24 12:00 03/26/24 12:45 Tamsulosin 0.4 Mg Cap.Er.24h PO 0.4 mg DAILY@1200 JEIMY Administration Thiamine HCl 100 mg 03/25/24 17:00 03/26/24 17:01 Thiamine 100 Mg Tab PO 100 mg DAILY@1700 JEIMY Administration Venlafaxine HCl 150 mg 03/26/24 09:00 03/26/24 09:18 Venlafaxine Hcl Er 150 Mg Cap PO 150 mg DAILY JEIMY Administration Intake and Output 03/26/24 03/26/24 03/26/24 06:59 14:59 22:59 Other: Voiding Method Diaper Diaper External Catheter External Catheter # Voids 0 Weight 63.049 kg 03/25/24 04:14 03/25/24 04:14
[2024-03-26 19:49] LABS: Glucose,Whole Blood 136 mg/dL (70-110)
[2024-03-27 06:56] LABS: Glucose,Whole Blood 86 mg/dL (70-110)
[2024-03-27 09:09] LABS: ALT 21 U/L (8-44); AST 19 U/L (13-35); Albumin 3.4 g/dL (3.8-4.9); Alkaline Phosphatase 80 U/L (41-126); Blood Urea Nitrogen 6.6 mg/dL (9.0-27.0); Calcium 9.2 mg/dL (8.7-10.3); Carbon Dioxide 30.6 mmol/L (21.6-31.8); Chloride 95 mmol/L (96-109); Globulin 1.7 g/dL (1.6-3.3); Glucose 78 mg/dL (70-110); Potassium 4.8 mmol/L (3.5-5.5); Sodium 133 mmol/L (135-145); Total Bilirubin 0.3 mg/dL (0.3-1.2); Total Protein 5.1 g/dL (6.2-8.2)
[2024-03-27 09:53] LABS: Basophils # (A) 0.05 X 10*3/uL (0.00-0.10); Basophils % (A) 0.4 %; Eosinophils # (A) 0.23 X 10*3/uL (0.04-0.35); Eosinophils % (A) 1.9 %; HCT 35.6 % (37.2-46.3); HGB 11.3 g/dL (12.0-15.0); Lymphocytes # (A) 1.99 X 10*3/uL (0.90-5.00); MCH 30.9 pg (27.0-32.0); MCHC 31.7 g/dL (32.0-37.0); MCV 97.3 FL (80.0-97.0); Mean Platelet Volume 9.2 FL (9.5-12.2); Monocytes # (A) 1.17 X 10*3/uL (0.20-1.00); Monocytes % (A) 9.4 %; NRBC Per 100 WBC 0 X 10*3/uL (0.00-0.01); Neutrophils # (A) 8.85 X 10*3/uL (1.80-7.70); Neutrophils % (A) 71.4 %; Platelet Count 347 X 10*3/uL (140-440); RBC 3.66 X 10*6/uL (4.10-5.20); RDW 13.2 % (11.5-14.5)
--- NOTE | 2024-03-27 10:36 | P.CRDCN ---
History of Present Illness History of present illness: HISTORY OF PRESENT ILLNESS: Patient examined this morning at the bedside. Patient currently denies chest pain or pressure. She denies shortness of breath. She states that she is feeling unwell this morning and hurts everywhere. She is adamant about being discharged home today. 2D echo remains pending. Patient is currently not on telemetry monitoring. Currently denies any dizziness or lightheadedness. PHYSICAL EXAM: VITAL SIGNS: Reviewed. GENERAL: Well-developed in no acute distress. NECK: Supple. No JVD or thyromegaly LUNGS: Respirations even and unlabored. Lungs essentially clear to auscultation bilaterally. HEART: Regular rate and rhythm. S1 and S2 heard. EXTREMITIES: Normal range of motion. No clubbing or cyanosis. Peripheral pulses intact. No lower extremity edema ASSESSMENT: Status post fall without loss of consciousness Sinus bradycardia Hyponatremia Hyperkalemia Hypertension Hyperlipidemia Hypothyroidism PLAN: 2D echo pending. Await results. Discussed telemetry monitoring with patient who is refusing at this time and is requesting to be discharged home today Continue current cardiac medications Further recommendations pending patient course Patient to follow-up with Dr. Last, her primary clinical manager home care, postdischarge Nurse practitioner note has been reviewed by physician. Signing provider agrees with the documented findings, assessment, and plan of care documented by FLAVORING OIL FILTERER as a scribe. Past Medical History Past Medical History: Asthma, Heart Failure, COPD, Fibromyalgia, GERD/Reflux, Hypertension, Osteoarthritis (OA), Pneumonia, Pulmonary Embolus (PE), Skin Disorder, Thyroid Disorder Additional Past Medical History / Comment(s): Spinal Stenosis, Cervical disc disease/stenosis, scoliosis, recently having numbness/tingling L side of face/neck, recently saw english tutor for L hemidiaphragmatic elevation-pt states she was told this was probably genetic, recently bronchitis and past bronchitis, pt states recent med change (water pill) d/t electrolyte problem/kidney function being affected, pt states she has had pulmonary emboli, past bilateral lower extremity cellulitis, edema lower extremities, IBS, hemorrhoids, benign colon polyps, sinus problems, UTIs, bacteremia/sepsis, cardiac murmur, past L ankle and L wrist fractures. History of Any Multi-Drug Resistant Organisms: None Reported Past Surgical History: Bariatric Surgery, Section, Cholecystectomy, Hysterectomy, Tonsillectomy Additional Past Surgical History / Comment(s): EGD, colonoscopies, gastric bypass, surgery for deviated septum, left cataract removal (having laser procedure on that eye 11/24/23) Past Anesthesia/Blood Transfusion Reactions: Previous Problems w/ Anesthesia Additional Past Anesthesia/Blood Transfusion Reaction / Comment(s): itching after hysterectomy, some kind of breathing problem after gastric bypass-not sure what happened Past Psychological History: Anxiety, Bipolar, Depression, Panic Disorder Smoking Status: Current every day smoker Past Alcohol Use History: None Reported Additional Past Alcohol Use History / Comment(s): Pt started smoking in 1986 and quit when she went into [facility] 08/2021, started again after discharge from [facility] 05/2022 Past Drug Use History: Marijuana Additional Drug Use History / Comment(s): occassional cannabis use per pt - Past Family History Mother Family Medical History: Congestive Heart Failure (CHF), Hypertension Father History Unknown: Yes Additional Family Medical History / Comment(s): Father at the age of 45 yrs d/t having had rheumatic fever as a child and heart valve disease. Medications and Allergies Home Medications Medication Instructions Recorded Confirmed Type Montelukast [Singulair] 10 mg PO HS 12/17/13 03/25/24 History Levothyroxine Sodium [Synthroid] 150 mcg PO DAILY 03/29/20 03/25/24 History Budesonide/Formoterol Fumarate 2 puff INHALATION RT-BID 06/12/21 03/25/24 History [Symbicort 160-4.5 Mcg Inhaler] Famotidine [Pepcid] 20 mg PO BID 09/03/21 03/25/24 History Divalproex ER [Depakote ER] 250 mg PO HS 10/07/21 03/25/24 History Tamsulosin [Flomax] 0.4 mg PO DAILY@1200 10/26/21 03/25/24 History Ferrous Sulfate [Iron (65 MG 325 mg PO DAILY 11/13/22 03/25/24 History Elemental)] Ipratropium-Albuterol Nebulize 3 ml INHALATION RT-QID PRN 11/13/22 03/25/24 History [Duoneb 0.5 mg-3 mg/3 ml Soln] Metoprolol Tartrate [Lopressor] 25 mg PO BID 11/13/22 03/25/24 History Thiamine [Vitamin B-1] 100 mg PO DAILY@1700 11/13/22 03/25/24 History Albuterol Inhaler [Ventolin Hfa 2 puff INHALATION RT-QID PRN #1 11/17/22 03/25/24 Rx Inhaler] each Ibandronate Sodium [Boniva] 150 mg PO Q30D 05/03/23 03/25/24 History Melatonin 5 mg PO HS PRN 05/03/23 03/25/24 History lisinopriL [Zestril] 20 mg PO DAILY 05/03/23 03/25/24 History Acetaminophen [Tylenol Arthritis] 650 mg PO Q4HR PRN 10/24/23 03/25/24 History amLODIPine [Norvasc] 5 mg PO DAILY 12/12/23 03/25/24 History clonazePAM [KlonoPIN ODT] 0.25 mg PO HS 12/12/23 03/25/24 History OLANZapine [ZyPREXA] 15 mg PO HS 01/22/24 03/25/24 History Albuterol Nebulized [Ventolin 5 mg INHALATION RT-QID PRN #60 each 01/24/24 03/25/24 Rx Nebulized] Naproxen [Naprosyn] 500 mg PO BID 30 Days #60 tablet 02/16/24 03/25/24 Rx HYDROcodone/APAP 5-325MG [[place] 1 tab PO Q6HR PRN 3 Days #12 tab 03/15/24 03/25/24 Rx 5-325] Folic Acid 1 mg PO DAILY@1700 03/18/24 03/25/24 History Venlafaxine HCl ER [Effexor XR] 150 mg PO DAILY 03/18/24 03/25/24 History hydrOXYzine HCL [Atarax] 25 mg PO BID 03/18/24 03/25/24 History lamoTRIgine [LaMICtal] 150 mg PO BID 03/18/24 03/25/24 History Cefuroxime [Ceftin] 500 mg PO BID 03/25/24 03/25/24 History Allergies Allergy/AdvReac Type Severity Reaction Status Date / Time codeine Allergy Unknown Verified 03/25/24 08:33 Childhood Penicillins Allergy Rash/Hives Verified 03/25/24 08:33 Sulfa (Sulfonamide Allergy Rash/Hives Verified 09/07/24 08:33 Antibiotics) Physical Exam Vitals: Vital Signs Temp Pulse Resp BP Pulse Ox 03/27/24 07:03 98.4 F 78 20 187/70 97 03/27/24 05:35 98.4 F 91 20 92 L 03/27/24 01:38 98.1 F 79 18 168/78 98 03/27/24 00:14 95 03/26/24 20:00 98.5 F 80 16 137/73 95 03/26/24 11:52 98.3 F 85 18 157/71 97 Intake and Output 03/26/24 03/27/24 03/27/24 22:59 06:59 14:59 Other: Voiding Method Bedside Commode Diaper # Voids 0 1 1 Weight 56.5 kg Results 03/27/24 05:32 03/27/24 05:32 Cardiac Enzymes 03/27/24 Range/Units 05:32 AST 19 (13-35) U/L CBC 03/27/24 Range/Units 05:32 WBC 12.40 H (4.50-10.00) X 10*3/uL RBC 3.66 L (4.10-5.20) X 10*6/uL Hgb 11.3 L (12.0-15.0) g/dL Hct 35.6 L (37.2-46.3) % Plt Count 347 (140-440) X 10*3/uL Comprehensive Metabolic Panel 03/27/24 Range/Units 05:32 Sodium 133 L (135-145) mmol/L Potassium 4.8 (3.5-5.5) mmol/L Chloride 95 L (96-109) mmol/L Carbon Dioxide 30.6 (21.6-31.8) mmol/L BUN 6.6 L (9.0-27.0) mg/dL Creatinine 0.4 L (0.6-1.5) mg/dL Glucose 78 (70-110) mg/dL Calcium 9.2 (8.7-10.3) mg/dL AST 19 (13-35) U/L ALT 21 (8-44) U/L Alkaline Phosphatase 80 (41-126) U/L Total Protein 5.1 L (6.2-8.2) g/dL Albumin 3.4 L (3.8-4.9) g/dL Current Medications Generic Name Dose Route Start Last Admin Trade Name Freq PRN Reason Stop Dose Admin Acetaminophen 650 mg 03/25/24 11:00 Acetaminophen Tab 325 Mg Tab PO Q4HR PRN Pain Hydrocodone Bitart/Acetaminophen 1 each 03/25/24 11:00 03/27/24 06:03 Hydrocodone/Apap 5-325mg 1 Each Tab PO 1 each Q6HR PRN Administration Pain Albuterol Sulfate 2 puff 03/25/24 11:00 Albuterol Hfa Inhaler INHALATION RT-QID PRN Shortness Of Breath Budesonide/Formoterol Fumarate 2 puff 03/25/24 20:00 03/27/24 08:14 Symbicort 160-4.5 Mcg Inhaler INHALATION 2 puff RT-BID JEIMY Administration Clonazepam 0.25 mg 03/25/24 21:00 03/26/24 20:59 Clonazepam 0.5 Mg Tab PO 0.25 mg HS JEIMY Administration Divalproex Sodium 250 mg 03/25/24 21:00 03/26/24 21:01 Divalproex Er 250 Mg Tab.Er.24h PO 250 mg HS JEIMY Administration Famotidine 20 mg 03/25/24 21:00 03/27/24 07:20 Famotidine 20 Mg Tab PO 20 mg BID JEIMY Administration Ferrous Sulfate 325 mg 03/26/24 09:00 03/27/24 07:20 Ferrous Sulfate 325 Mg Tab PO 325 mg DAILY JEIMY Administration Folic Acid 1 mg 03/25/24 17:00 03/26/24 17:01 Folic Acid 1 Mg Tab PO 1 mg DAILY@1700 JEIMY Administration Hydroxyzine HCl 25 mg 03/25/24 21:00 03/27/24 07:20 Hydroxyzine Hcl 25 Mg Tab PO 25 mg BID JEIMY Administration Sodium Chloride 1,000 mls @ 75 mls/hr 03/24/24 22:45 03/27/24 06:04 Saline 0.9% IV 75 mls/hr .[id number] JEIMY Administration Lamotrigine 150 mg 03/25/24 21:00 03/27/24 07:20 Lamotrigine 100 Mg Tab PO 150 mg BID JEIMY Administration Levothyroxine Sodium 150 mcg 03/26/24 06:30 03/27/24 06:03 Levothyroxine 75 Mcg Tab PO 150 mcg DAILY@0630 JEIMY Administration Melatonin 5 mg 03/25/24 11:00 Melatonin 5 Mg Tablet PO HS PRN Insomnia Montelukast Sodium 10 mg 03/25/24 21:00 03/26/24 21:00 Montelukast 10 Mg Tab PO 10 mg HS JEIMY Administration Morphine Sulfate 4 mg 03/24/24 22:41 03/26/24 05:44 Morphine Sulfate 4 Mg/Ml Syringe IV 4 mg Q4HR PRN Administration Severe Pain (Scale 7 to 10) Naloxone HCl 0.2 mg 03/24/24 22:41 Naloxone 0.4 Mg/Ml 1 Ml Vial IV Q2M PRN Opioid Reversal Olanzapine 15 mg 03/25/24 21:00 03/26/24 21:01 Olanzapine 7.5 Mg Tab PO 15 mg HS JEIMY Administration Ondansetron HCl 4 mg 03/24/24 22:41 03/25/24 06:51 Ondansetron 4 Mg/2 Ml Vial IVP 4 mg Q8HR PRN Administration Nausea And Vomiting Pantoprazole Sodium 40 mg 03/25/24 09:00 03/27/24 09:25 Pantoprazole 40 Mg/10 Ml Vial IV 40 mg DAILY JEIMY Administration Pyridoxine HCl 50 mg 03/26/24 12:00 03/27/24 07:21 Pyridoxine 50 Mg Tab PO 50 mg DAILY JEIMY Administration Tamsulosin HCl 0.4 mg 03/25/24 12:00 03/26/24 12:45 Tamsulosin 0.4 Mg Cap.Er.24h PO 0.4 mg DAILY@1200 JEIMY Administration Thiamine HCl 100 mg 03/25/24 17:00 03/26/24 17:01 Thiamine 100 Mg Tab PO 100 mg DAILY@1700 JEIMY Administration Venlafaxine HCl 150 mg 03/26/24 09:00 03/27/24 07:21 Venlafaxine Hcl Er 150 Mg Cap PO 150 mg DAILY JEIMY Administration Intake and Output 03/26/24 03/27/24 03/27/24 22:59 06:59 14:59 Other: Voiding Method Bedside Commode Diaper # Voids 0 1 1 Weight 56.5 kg 03/27/24 05:32 03/27/24 05:32
[2024-03-27 11:44] LABS: Glucose,Whole Blood 130 mg/dL (70-110)
--- NOTE | 2024-03-27 12:54 | P.PN ---
Subjective HISTORY OF PRESENT ILLNESS: Patient examined this morning at the bedside. Patient currently denies chest pain or pressure. She denies shortness of breath. She states that she is feeling unwell this morning and hurts everywhere. She is adamant about being discharged home today. 2D echo remains pending. Patient is currently not on telemetry monitoring. Currently denies any dizziness or lightheadedness. PHYSICAL EXAM: VITAL SIGNS: Reviewed. GENERAL: Well-developed in no acute distress. NECK: Supple. No JVD or thyromegaly LUNGS: Respirations even and unlabored. Lungs essentially clear to auscultation bilaterally. HEART: Regular rate and rhythm. S1 and S2 heard. EXTREMITIES: Normal range of motion. No clubbing or cyanosis. Peripheral pulses intact. No lower extremity edema ASSESSMENT: Status post fall without loss of consciousness Sinus bradycardia Hyponatremia Hyperkalemia Hypertension Hyperlipidemia Hypothyroidism PLAN: 2D echo pending. Await results. Discussed telemetry monitoring with patient who is refusing at this time and is requesting to be discharged home today Continue current cardiac medications Resume Norvasc due to elevated BP Further recommendations pending patient course Patient to follow-up with Dr. Last, her primary doubling machine operator, postdischarge Nurse practitioner note has been reviewed by physician. Signing provider agrees with the documented findings, assessment, and plan of care documented by WELLNESS AMBASSADOR as a scribe. Objective - Vital Signs Vital signs: Vital Signs Temp 98.4 F 03/27/24 07:03 Pulse 78 03/27/24 07:03 Resp 20 03/27/24 07:03 BP 187/70 03/27/24 07:03 Pulse Ox 97 03/27/24 07:03 FiO2 Intake & Output 03/26/24 03/27/24 03/27/24 18:59 06:59 18:59 Weight 56.5 kg Other: Voiding Method Diaper Bedside Commode Bedside Commode External Catheter Diaper Incontinent # Voids 0 1 1 - Labs CBC & Chem 7: 03/27/24 05:32 03/27/24 05:32 Labs: Abnormal Lab Results - Last 24 Hours (Table) 03/26/24 03/26/24 03/27/24 Range/Units 16:55 19:41 05:32 WBC 12.40 H (4.50-10.00) X 10*3/uL RBC 3.66 L (4.10-5.20) X 10*6/uL Hgb 11.3 L (12.0-15.0) g/dL Hct 35.6 L (37.2-46.3) % MCV 97.3 H (80.0-97.0) FL MCHC 31.7 L (32.0-37.0) g/dL MPV 9.2 L (9.5-12.2) FL Immature Gran # 0.11 H (0.00-0.04) X 10*3/uL Neutrophils # 8.85 H (1.80-7.70) X 10*3/uL Monocytes # 1.17 H (0.20-1.00) X 10*3/uL Sodium (135-145) mmol/L Chloride (96-109) mmol/L BUN (9.0-27.0) mg/dL Creatinine (0.6-1.5) mg/dL POC Glucose (mg/dL) 141 H 136 H (70-110) mg/dL Total Protein (6.2-8.2) g/dL Albumin (3.8-4.9) g/dL 03/27/24 03/27/24 Range/Units 05:32 11:43 WBC (4.50-10.00) X 10*3/uL RBC (4.10-5.20) X 10*6/uL Hgb (12.0-15.0) g/dL Hct (37.2-46.3) % MCV (80.0-97.0) FL MCHC (32.0-37.0) g/dL MPV (9.5-12.2) FL Immature Gran # (0.00-0.04) X 10*3/uL Neutrophils # (1.80-7.70) X 10*3/uL Monocytes # (0.20-1.00) X 10*3/uL Sodium 133 L (135-145) mmol/L Chloride 95 L (96-109) mmol/L BUN 6.6 L (9.0-27.0) mg/dL Creatinine 0.4 L (0.6-1.5) mg/dL POC Glucose (mg/dL) 130 H (70-110) mg/dL Total Protein 5.1 L (6.2-8.2) g/dL Albumin 3.4 L (3.8-4.9) g/dL
[2024-03-27] MEDS: amLODIPine 5 MG TAB PO SCH (13:04)
--- NOTE | 2024-03-27 14:36 | P.PN ---
Subjective Progress Note Date: 03/27/24 I am following up with the patient and she states she is doing better today and feels more awake. Then later she stated that "I feel burning up my hand and arms and going to my chest. And I want a tranquilizer shot" Objective - Vital Signs Vital signs: Vital Signs Temp 98.4 F 03/27/24 12:05 Pulse 85 03/27/24 12:05 Resp 16 03/27/24 12:05 BP 168/82 03/27/24 12:05 Pulse Ox 97 03/27/24 12:05 FiO2 Intake & Output 03/26/24 03/27/24 03/27/24 18:59 06:59 18:59 Weight 56.5 kg Other: Voiding Method Diaper Bedside Commode Bedside Commode External Catheter Diaper Incontinent # Voids 0 1 1 - Exam General: Lying in bed and does not appear in acute distress but states is anxious. HENT: Supple neck. Has bruise over the right eye/orbit/v2. Extremities: Has bruise over the right knee Neuro: Limited. The patient is more awake today. Is oriented to self place and time. Is following simple commands. She was able to identify objects for me such as pen watch and glasses correctly. No aphasia. Pulls are round equal reactive to light. Pupils are round 3 to 4 mm bilaterally. Visual flores are full to confrontation. Extraocular movement is intact no nystagmus No facial weakness. No dysarthria Motor she is left in the arms and legs above gravity but unable to assess individual muscle strength because of her cooperation again. Some of the workup during this hospital visit consisted of: White blood cell is within normal limits Sodium is 130. On 03/24/2024 her sodium was as low as 125. About 5 months ago it was as low as 129 as well as on 12/12/2023 was as low as 125. Glucose during this hospital visit was as low as 55 on presentation was 72 and most recent is 60 TSH is 4.220 Ammonia is less than 9 CT of the head is reported as no acute intracranial CT abnormality. Atrophy and chronic microvascular ischemia changes. CT cervical spine is reported as no evidence of acute cervical spine fracture or traumatic malalignment. Moderate cervical spondylosis described above and recent MRI. CT orbit is reported as mild right precentral soft tissue swelling with extension to the right forehead and small focus of subcutaneous gas over the forehead. No radiopaque foreign body. No evidence of orbital fracture or any acute intraorbital abnormality CTA of the head and neck is reported as patent CT angiography of the head and neck. Mostly calcified plaque at the carotid bifurcation in the proximal ICA with up to 50% diameter stenosis bilaterally. No evidence of dissection or pseudoaneurysm of the carotid or vertebral artery in the neck. No intracranial large vessel occlusion, significant stenosis or sizable aneurysm detected in limits of CTA. Heterogeneous 3.4 x 2.5 cm right thyroid nodule. - Labs CBC & Chem 7: 03/27/24 05:32 03/27/24 05:32 Labs: Abnormal Lab Results - Last 24 Hours (Table) 03/26/24 03/26/24 03/27/24 Range/Units 16:55 19:41 05:32 WBC 12.40 H (4.50-10.00) X 10*3/uL RBC 3.66 L (4.10-5.20) X 10*6/uL Hgb 11.3 L (12.0-15.0) g/dL Hct 35.6 L (37.2-46.3) % MCV 97.3 H (80.0-97.0) FL MCHC 31.7 L (32.0-37.0) g/dL MPV 9.2 L (9.5-12.2) FL Immature Gran # 0.11 H (0.00-0.04) X 10*3/uL Neutrophils # 8.85 H (1.80-7.70) X 10*3/uL Monocytes # 1.17 H (0.20-1.00) X 10*3/uL Sodium (135-145) mmol/L Chloride (96-109) mmol/L BUN (9.0-27.0) mg/dL Creatinine (0.6-1.5) mg/dL POC Glucose (mg/dL) 141 H 136 H (70-110) mg/dL Total Protein (6.2-8.2) g/dL Albumin (3.8-4.9) g/dL 03/27/24 03/27/24 Range/Units 05:32 11:43 WBC (4.50-10.00) X 10*3/uL RBC (4.10-5.20) X 10*6/uL Hgb (12.0-15.0) g/dL Hct (37.2-46.3) % MCV (80.0-97.0) FL MCHC (32.0-37.0) g/dL MPV (9.5-12.2) FL Immature Gran # (0.00-0.04) X 10*3/uL Neutrophils # (1.80-7.70) X 10*3/uL Monocytes # (0.20-1.00) X 10*3/uL Sodium 133 L (135-145) mmol/L Chloride 95 L (96-109) mmol/L BUN 6.6 L (9.0-27.0) mg/dL Creatinine 0.4 L (0.6-1.5) mg/dL POC Glucose (mg/dL) 130 H (70-110) mg/dL Total Protein 5.1 L (6.2-8.2) g/dL Albumin 3.4 L (3.8-4.9) g/dL Assessment and Plan Assessment: This is a 68-year-old woman who presents to the emergency department on 03/24/2024 because of dizziness. Seems patient noticed that she was feeling dizzy lightheaded feeling more sleepy and she slid down off her wheelchair hitting her right side of the face and she has been having blurred vision last few days. No noticeable focal deficit. She was confused. Denies any history of seizure. Has ongoing hyponatremia as well as during this hospital visit has hypoglycemia as well as 55s on presentation over 72. As a result of a fall patient has a bruise over the right orbital as well as knee. CT of the head is unremarkable for any acute or subacute stroke. Patient had a recentAdmission to our facility and was evaluated by my colleague last on 03/22/2024 and he felt the patient has new onset occipital Schreckinger. Patient also has severe spinal canal stenosis with probable cervical myelopathy on the recent admission. Recent falling off her wheel chair having dizziness, blurred vision last few days and being more sleepy: Unsure exact etiology. Rule out stroke vs seizure vs other central process vs due to metabolic derangement. Has metabolic derangement leading to her metabolic encephalopathy (hypoglycemia in the mid 50s as well as hyponatremia) Ongoing hyponatremia Episodes of hypoglycemia Severe cervical stenosis on recent prior admission and concern for cervical myelopathy New onset bilateral occipital neuralgia per Dr. Leon vitamin B6 deficiency on 03/20/2024 (level of 3) Chronic lower back pain Severe anxiety Tobacco use Chronic pain Polypharmacy Plan: Pending MRI of the brain with and without Preliminary routine EEG: Is negative for seizure or discharges. Patient had recent vitamin B6 deficiency on 03/20/2024 therefore I will start the patient on vitamin B6 50 mg nightly Patient had a recent vitamin B12 and folate which were normal. I ordered ammonia level Is on home medication of Lamictal 150 mg twice daily, Klonopin 0.25 mg nightly, Depakote 250 mg nightly Avoid any further episodes of hypoglycemia and recommend controlling the hyponatremia. Cardiology is consulted for the bradycardia but it is as low as in the 50s and unsure if this is the cause. Will defer the rest of the medical management the primary and other specialist. Plan discussed with the patient's nurse and primary team N.P. Time with Patient: Less than 30
--- NOTE | 2024-03-27 16:02 | MR ---
INDICATION: Patient age:Female; 68 years old; Reason for study: confusion; PHH. COMPARISON: CT brain C-spine 03/24/2024, CTA head and neck 03/24/2024, CT Orbits 03/24/2024, MR brain 06/11 TECHNIQUE: Multi planar, multi sequence imaging was performed through the brain. The patient was then given 5 cc of Gadavist intravenously and multi planar, T1 fat-saturation images were obtained. FINDINGS: The joyner-white junctions, ventricular system, basal cisterns appear unremarkable. Diffusion-weighted imaging shows no evidence of restricted diffusion to suggest acute/subacute infarct. Intracranial art erial flow voids are maintained. Midline structures show no abnormality. Patchy areas of high T2/FLAI R signal intensity are seen within the periventricular white matter. The susceptibility weighted imag es demonstrate blooming artifact within the right middle cranial fossa consistent with prior microhem orrhage. After administration of gadolinium, no abnormal enhancement is seen. Cerebral atrophy. The bone marrow signal is within normal limits. The paranasal sinuses are unremarkable. Left aphakia . Right mastoid air cell T2 hyperintensity. IMPRESSION: 1. No evidence of intracranial mass, acute/subacute infarct, or abnormal enhancement. 2. Nonspecific white matter changes, likely related to small vessel ischemic disease. 3. Right mastoid effusion. Correlate clinically for mastoiditis.
[2024-03-27] MEDS: LORazepam 2 MG/ML INJ IV STA (16:23)
[2024-03-27 17:03] LABS: Glucose,Whole Blood 123 mg/dL (70-110)
[2024-03-27] MEDS ORDERED: polyethylene glycoL 3350 17 GM POWD.PACK PO PRN (18:21)
[2024-03-27] MEDS: polyethylene glycoL 3350 17 GM POWD.PACK PO STA (18:43)
--- NOTE | 2024-03-27 18:54 | EEG ---
ELECTROENCEPHALOGRAM REPORT CLINICAL HISTORY: This is a 68-year-old woman with altered mental status. The video EEG is obtained to evaluate for seizure epileptiform activity. RELEVANT MEDICATION: Lamictal. EEG TYPE: A routine 21-channel EEG with video using the 10/20 electrode placement system. DESCRIPTION: Wakefulness is only obtained. During awake state, the posterior-dominant rhythm consists of [id number] voltage of 8.5 to 9 hertz activity that is well modulated and well sustained. There is no physiological stage 2 sleep architecture. There is no focal slowing. Interictal and ictal: There appears to be suspicious of phase reversal over T5 as well as sharply contoured activity over T5. No seizure is noted during the study. ACTIVATION PROCEDURE: Photic stimulation and hyperventilation are not performed. CLINICAL INTERPRETATION: This is an abnormal routine EEG. The background is normal. There appears to be suspicious for epileptiform discharges over T5 region which can increase risk for focal seizure and status epilepticus. No seizures noted during the study. Clinical correlation is recommended. MMKARLY / IJN: [id number] / CHULA
[2024-03-27 20:11] LABS: Glucose,Whole Blood 138 mg/dL (70-110)
[2024-03-27] MEDS: SENNOSIDES 8.6 MG TAB PO SCH (21:05)
--- NOTE | 2024-03-27 22:42 | P.PN ---
Subjective Progress Note Date: 03/27/24 patient is 68-year-old lady with past medical history significant for hypertension, hypothyroidism, COPD who presented to ER because of dizziness. Patient stated that she was all right yesterday evening when she started noticing that she was getting dizzy and lightheaded and feeling more sleepy, she slid down her wheelchair hitting her right side of her face. Patient stated that she has been noticing that she has blurred vision for the last few days. There was no clear weakness of any extremity. Denies any jerking movement of extremities. There was no complaint of fecal or urine incontinence. EMS brought her to the ER Initial lab work done in the ER showed WBC 8.6, hemoglobin 10.6, platelet count 298, sodium 125, potassium 5.2, BUN 28, creatinine 0.90 magnesium 1.6, bilirubin 0.7 UA negative for any infection EKG done in the ER showed heart rate of 59 , no ST segment elevation or depre ssion seen, no T-wave inversions seen. Chest x-ray done in the ER showed cardiomegaly with central vascular congestion, bibasilar opacities left greater than right. CT head done showed no acute intracranial process CT cervical spine done showed no evidence of acute cervical spine fracture or traumatic malalignment CTA head and neck done showed no significant stenosis, aneurysm or thrombus in the intracranial circulation CT orbit done showedMild right preseptal soft tissue swelling with extension to the right forehead and small focus of subcutaneous gas over the forehead X-ray left hip done showed no visualized acute fracture or dislocation The right knee done showed no acute fractures Patient admitted to internal medicine service 03/26. Patient seen and examined. Bradycardia improved by holding AV apollo blocking agents. Neurology evaluated, ordered MRI and EEG. 03/27/2024 Patient is seen in follow-up currently being followed by neurology and cardiology. Patient is scheduled to undergo MRI and eeg was noted to be within normal limits. No epileptiform discharges noted. Patient is very adament she is being discharged today. Recommend monitoring overnight and await MRI and have PT/OT evaluate the patient in the am. Patient is afebrile and denies any chest pain or shortness of breath. at the bedside with questions and concerns that were answered. REVIEW OF SYSTEMS: CONSTITUTIONAL: No fever, no malaise, reports feeling anxious CARDIOVASCULAR: No chest pain, no palpitations, no syncope. PULMONARY: No shortness of breath, no cough, GASTROINTESTINAL: No diarrhea, no nausea, no vomiting, no abdominal pain. NEUROLOGICAL: No headaches, no weakness PHYSICAL EXAMINATION: GENERAL: The patient is alert and oriented x3, not in any acute distress. Ill looking, extremely anxious on exam. elderly appearing HEENT: Pupils are round and equally reacting to light. EOMI. No scleral icterus. No conjunctival pallor. Normocephalic, atraumatic. No pharyngeal erythema. No thyromegaly. CARDIOVASCULAR: S1 and S2 present. No murmurs, rubs, or gallops. PULMONARY: Chest is clear to auscultation, no wheezing or crackles. ABDOMEN: Soft, nontender, nondistended, normoactive bowel sounds. No palpable organomegaly. MUSCULOSKELETAL: No joint swelling or deformity. Right knee bandage seen EXTREMITIES: No cyanosis, clubbing, or pedal edema. NEUROLOGICAL: Gross neurological examination did not reveal any focal deficits. diffusely weak SKIN: No rashes. bruising noted that appears old and healing Assessment and plan: Dizziness with falls, denies syncopal episodes Fall with recurrent falls and generalized weakness Bradycardia, currently sinus rhythm, refusing to wear front desk monitor Hyponatremia, improved Hyperkalemia Hypertension, uncontrolled Hyperlipidemia history Hypothyroidism GI and DVT prophylaxis Full code Plan: Patient underwent EEG with neuro following and no seizure like activity noted, awaiting MRI of the brain Recommend PT/OT therapy evaluation Cardio following and recommends tele monitoring although patient is refusing to wear the monitor, resume home BP med Follow up on repeat labs, Sodium and potassium have been corrected Encourage increased activity as tolerated. Patient is adamant she is leaving to go home today. Agreeable to await MRI with family at the bedside. Patient has had previous hospitalization and demanded to be discharged. Will await report and PT/OT eval Possible discharge home in 24 hours. The impression and plan of care has been dictated by Audrey Curtis Nurse Practitioner as directed. Dr. Micky MD I have performed a history and examination and MDM of this patient, discussed the same with the dictator, and agree with the dictator's assessment and plan as written ,documented as a scribe. Based on total visit time, I have performed more than 50% of the visit. Objective - Vital Signs Vital signs: Vital Signs Temp 98.4 F 03/27/24 07:03 Pulse 78 03/27/24 07:03 Resp 20 03/27/24 07:03 BP 187/70 03/27/24 07:03 Pulse Ox 97 03/27/24 07:03 FiO2 Intake & Output 03/26/24 03/27/24 03/27/24 18:59 06:59 18:59 Weight 56.5 kg Other: Voiding Method Diaper Bedside Commode External Catheter Diaper # Voids 0 1 1 - Labs CBC & Chem 7: 03/27/24 05:32 03/27/24 05:32 Labs: Abnormal Lab Results - Last 24 Hours (Table) 03/26/24 03/26/24 03/26/24 Range/Units 11:54 16:55 19:41 WBC (4.50-10.00) X 10*3/uL RBC (4.10-5.20) X 10*6/uL Hgb (12.0-15.0) g/dL Hct (37.2-46.3) % MCV (80.0-97.0) FL MCHC (32.0-37.0) g/dL MPV (9.5-12.2) FL Immature Gran # (0.00-0.04) X 10*3/uL Neutrophils # (1.80-7.70) X 10*3/uL Monocytes # (0.20-1.00) X 10*3/uL Sodium (135-145) mmol/L Chloride (96-109) mmol/L BUN (9.0-27.0) mg/dL Creatinine (0.6-1.5) mg/dL POC Glucose (mg/dL) 215 H 141 H 136 H (70-110) mg/dL Total Protein (6.2-8.2) g/dL Albumin (3.8-4.9) g/dL 03/27/24 03/27/24 Range/Units 05:32 05:32 WBC 12.40 H (4.50-10.00) X 10*3/uL RBC 3.66 L (4.10-5.20) X 10*6/uL Hgb 11.3 L (12.0-15.0) g/dL Hct 35.6 L (37.2-46.3) % MCV 97.3 H (80.0-97.0) FL MCHC 31.7 L (32.0-37.0) g/dL MPV 9.2 L (9.5-12.2) FL Immature Gran # 0.11 H (0.00-0.04) X 10*3/uL Neutrophils # 8.85 H (1.80-7.70) X 10*3/uL Monocytes # 1.17 H (0.20-1.00) X 10*3/uL Sodium 133 L (135-145) mmol/L Chloride 95 L (96-109) mmol/L BUN 6.6 L (9.0-27.0) mg/dL Creatinine 0.4 L (0.6-1.5) mg/dL POC Glucose (mg/dL) (70-110) mg/dL Total Protein 5.1 L (6.2-8.2) g/dL Albumin 3.4 L (3.8-4.9) g/dL
[2024-03-28] MEDS: SODIUM CHLORIDE 0.9% 1,000 ML IV SCH (02:12)
[2024-03-28 07:08] LABS: Glucose,Whole Blood 85 mg/dL (70-110)
[2024-03-28 07:50] VITALS: RESP 16
[2024-03-28 08:32] LABS: Basophils # (A) 0.07 X 10*3/uL (0.00-0.10); Basophils % (A) 0.7 %; Eosinophils # (A) 0.23 X 10*3/uL (0.04-0.35); Eosinophils % (A) 2.5 %; HCT 33.7 % (37.2-46.3); HGB 10.8 g/dL (12.0-15.0); Lymphocytes # (A) 2.05 X 10*3/uL (0.90-5.00); Lymphocytes % (A) 21.9 %; MCH 30.9 pg (27.0-32.0); MCV 96.3 FL (80.0-97.0); Mean Platelet Volume 9.4 FL (9.5-12.2); Monocytes # (A) 0.88 X 10*3/uL (0.20-1.00); Monocytes % (A) 9.4 %; NRBC Per 100 WBC 0 X 10*3/uL (0.00-0.01); Neutrophils # (A) 5.98 X 10*3/uL (1.80-7.70); Platelet Count 326 X 10*3/uL (140-440); RDW 13.5 % (11.5-14.5); WBC 9.35 X 10*3/uL (4.50-10.00)
[2024-03-28 08:50] LABS: Blood Urea Nitrogen 6.3 mg/dL (9.0-27.0); Calcium 9.9 mg/dL (8.7-10.3); Carbon Dioxide 31.9 mmol/L (21.6-31.8); Chloride 96 mmol/L (96-109); Glucose 71 mg/dL (70-110); Magnesium 1.6 mg/dL (1.5-2.4); Sodium 135 mmol/L (135-145)
--- NOTE | 2024-03-28 11:50 | P.PN ---
Subjective HISTORY OF PRESENT ILLNESS: Patient examined this morning at the bedside. Patient currently denies chest pain or pressure. She denies shortness of breath. She states that she is feeling unwell this morning and hurts everywhere. She is adamant about being discharged home today. 2D echo remains pending. Patient is currently not on telemetry monitoring. Currently denies any dizziness or lightheadedness. 03/28/2024 Patient examined this morning at the bedside. Patient currently denies chest pain or pressure. She denies shortness of breath. Documented heart rates are in the 70s. Blood pressure 151/67. Patient was resumed on her Norvasc yesterday. MRI completed yesterday was negative for intracranial mass, acute/subacute infarct, or abnormal enhancement. EEG performed with no evidence of seizure activity. PHYSICAL EXAM: VITAL SIGNS: Reviewed. GENERAL: Well-developed in no acute distress. NECK: Supple. No JVD or thyromegaly LUNGS: Respirations even and unlabored. Lungs essentially clear to auscultation bilaterally. HEART: Regular rate and rhythm. S1 and S2 heard. EXTREMITIES: Normal range of motion. No clubbing or cyanosis. Peripheral pulses intact. No lower extremity edema ASSESSMENT: Status post fall without loss of consciousness Sinus bradycardia Hyponatremia Hyperkalemia Hypertension Hyperlipidemia Hypothyroidism PLAN: Patient refused echocardiogram yesterday Discussed telemetry monitoring with patient yesterday who refused Continue current cardiac medications Patient may be discharged home today from a cardiac standpoint Patient to follow-up with Dr. 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 Please reconsult if needed Nurse practitioner note has been reviewed by physician. Signing provider agrees with the documented findings, assessment, and plan of care documented by [employer] as a scribe. Objective - Vital Signs Vital signs: Vital Signs Temp 98.1 F 03/28/24 07:04 Pulse 75 03/28/24 07:04 Resp 16 03/28/24 07:04 BP 151/67 03/28/24 07:04 Pulse Ox 94 L 03/28/24 07:35 FiO2 Intake & Output 03/27/24 03/28/24 03/28/24 18:59 06:59 18:59 Weight 54 kg Other: Voiding Method Bedside Commode Bedside Commode Incontinent Incontinent # Voids 2 1 # Bowel Movements 0 - Labs CBC & Chem 7: 03/28/24 03:08 03/28/24 03:08 Labs: Abnormal Lab Results - Last 24 Hours (Table) 03/27/24 03/27/24 03/27/24 Range/Units 05:32 11:43 17:01 WBC 12.40 H (4.50-10.00) X 10*3/uL RBC 3.66 L (4.10-5.20) X 10*6/uL Hgb 11.3 L (12.0-15.0) g/dL Hct 35.6 L (37.2-46.3) % MCV 97.3 H (80.0-97.0) FL MCHC 31.7 L (32.0-37.0) g/dL MPV 9.2 L (9.5-12.2) FL Immature Gran # 0.11 H (0.00-0.04) X 10*3/uL Neutrophils # 8.85 H (1.80-7.70) X 10*3/uL Monocytes # 1.17 H (0.20-1.00) X 10*3/uL Carbon Dioxide (21.6-31.8) mmol/L BUN (9.0-27.0) mg/dL Creatinine (0.6-1.5) mg/dL POC Glucose (mg/dL) 130 H 123 H (70-110) mg/dL 03/27/24 03/28/24 03/28/24 Range/Units 20:10 03:08 03:08 WBC (4.50-10.00) X 10*3/uL RBC 3.50 L (4.10-5.20) X 10*6/uL Hgb 10.8 L (12.0-15.0) g/dL Hct 33.7 L (37.2-46.3) % MCV (80.0-97.0) FL MCHC (32.0-37.0) g/dL MPV 9.4 L (9.5-12.2) FL Immature Gran # 0.14 H (0.00-0.04) X 10*3/uL Neutrophils # (1.80-7.70) X 10*3/uL Monocytes # (0.20-1.00) X 10*3/uL Carbon Dioxide 31.9 H (21.6-31.8) mmol/L BUN 6.3 L (9.0-27.0) mg/dL Creatinine 0.5 L (0.6-1.5) mg/dL POC Glucose (mg/dL) 138 H (70-110) mg/dL
[2024-03-28 12:01] LABS: Glucose,Whole Blood 165 mg/dL (70-110)
[2024-03-28 14:14] VITALS: BP 118/64; PULSE 79; TEMP 99.1
[2024-03-28] MEDS ORDERED: Magnesium Replacement Protocol 1 EACH MISC MISCELLANE PRN (14:33)
--- NOTE | 2024-03-28 14:42 | P.PN ---
Subjective Progress Note Date: 03/28/24 I am following up with the patient and she states she is doing drastically better. She denies of any neurological issues. She feels more awake alert. Per the primary team she seems to be doing well. But later patient stated that she is having some abdominal pain but wants to go home. Objective - Vital Signs Vital signs: Vital Signs Temp 99.1 F 03/28/24 13:42 Pulse 79 03/28/24 13:42 Resp 16 03/28/24 13:42 BP 118/64 03/28/24 13:42 Pulse Ox 96 03/28/24 13:42 FiO2 Intake & Output 03/27/24 03/28/24 03/28/24 18:59 06:59 18:59 Weight 54 kg Other: Voiding Method Bedside Commode Bedside Commode Bedside Commode Incontinent Incontinent Incontinent # Voids 2 1 # Bowel Movements 0 - Exam General: Lying in bed and does not appear in acute distress but states is anxious. HENT: Supple neck. Has bruise over the right eye/orbit/v2. Extremities: Has bruise over the right knee Neuro: Limited. The patient is awake alert oriented to self place and time. Is following simple commands. No aphasia. Pulls are round equal reactive to light. Pupils are round 3 to 4 mm bilaterally. Visual flores are full to confrontation. Extraocular movement is intact no nystagmus No facial weakness. No dysarthria Motor she is left in the arms and legs above gravity but unable to assess individual muscle strength because of her cooperation again. Some of the workup during this hospital visit consisted of: White blood cell is within normal limits Sodium is 130. On 03/24/2024 her sodium was as low as 125. About 5 months ago it was as low as 129 as well as on 12/12/2023 was as low as 125. Glucose during this hospital visit was as low as 55 on presentation was 72 and most recent is 60 TSH is 4.220 Ammonia is less than 9 CT of the head is reported as no acute intracranial CT abnormality. Atrophy and chronic microvascular ischemia changes. CT cervical spine is reported as no evidence of acute cervical spine fracture or traumatic malalignment. Moderate cervical spondylosis described above and recent MRI. CT orbit is reported as mild right precentral soft tissue swelling with extension to the right forehead and small focus of subcutaneous gas over the forehead. No radiopaque foreign body. No evidence of orbital fracture or any acute intraorbital abnormality CTA of the head and neck is reported as patent CT angiography of the head and neck. Mostly calcified plaque at the carotid bifurcation in the proximal ICA with up to 50% diameter stenosis bilaterally. No evidence of dissection or pseudoaneurysm of the carotid or vertebral artery in the neck. No intracranial large vessel occlusion, significant stenosis or sizable aneurysm detected in limits of CTA. Heterogeneous 3.4 x 2.5 cm right thyroid nodule. Routine EEG is initially it was felt normal yesterday but today upon re- reviewing it, I felt abnormal. The background is normal. There is suspicious of epileptiform discharges over T5 region which can increase risk for focal seizure and status epilepticus. No seizure noted during this study. MRI of the brain is reported as no evidence of intracranial mass, acute/subacute infarct or abnormal enhancement. Nonspecific white matter changes, likely related to small vessel ischemic disease. Right mastoid effusion. Correlate for mastoiditis. - Labs CBC & Chem 7: 03/28/24 03:08 03/28/24 03:08 Labs: Abnormal Lab Results - Last 24 Hours (Table) 03/27/24 03/27/24 03/28/24 Range/Units 17:01 20:10 03:08 RBC (4.10-5.20) X 10*6/uL Hgb (12.0-15.0) g/dL Hct (37.2-46.3) % MPV (9.5-12.2) FL Immature Gran # (0.00-0.04) X 10*3/uL Carbon Dioxide 31.9 H (21.6-31.8) mmol/L BUN 6.3 L (9.0-27.0) mg/dL Creatinine 0.5 L (0.6-1.5) mg/dL POC Glucose (mg/dL) 123 H 138 H (70-110) mg/dL 03/28/24 03/28/24 Range/Units 03:08 11:59 RBC 3.50 L (4.10-5.20) X 10*6/uL Hgb 10.8 L (12.0-15.0) g/dL Hct 33.7 L (37.2-46.3) % MPV 9.4 L (9.5-12.2) FL Immature Gran # 0.14 H (0.00-0.04) X 10*3/uL Carbon Dioxide (21.6-31.8) mmol/L BUN (9.0-27.0) mg/dL Creatinine (0.6-1.5) mg/dL POC Glucose (mg/dL) 165 H (70-110) mg/dL Assessment and Plan Assessment: This is a 68-year-old woman who presents to the emergency department on 03/24/2024 because of dizziness. Seems patient noticed that she was feeling dizzy lightheaded feeling more sleepy and she slid down off her wheelchair hitting her right side of the face and she has been having blurred vision last few days. No noticeable focal deficit. She was confused. Denies any history of seizure. Has ongoing hyponatremia as well as during this hospital visit has hypoglycemia as well as 55s on presentation over 72. As a result of a fall michel mcintosh has a bruise over the right orbital as well as knee. CT of the head is unremarkable for any acute or subacute stroke. Patient had a recentAdmission to our facility and was evaluated by my colleague last on 03/22/2024 and he felt the patient has new onset occipital Schreckinger. Patient also has severe spinal canal stenosis with probable cervical myelopathy on the recent admission. Recent falling off her wheel chair having dizziness, blurred vision last few days and being more sleepy: I am concerned about seizure since on EEG has suspicous discharges over T5 lead which can increase risk for seizure but no seizure noted. MRI Brain is unremarkable--mentation improved. Has metabolic derangement leading to her metabolic encephalopathy (hypoglycemia in the mid 50s as well as hyponatremia) Ongoing hyponatremia--resolved Episodes of hypoglycemia--resolved Severe cervical stenosis on recent prior admission and concern for cervical myelopathy New onset bilateral occipital neuralgia per Dr. Leon vitamin B6 deficiency on 03/20/2024 (level of 3) Chronic lower back pain Severe anxiety Tobacco use Chronic pain Polypharmacy Plan: Patient had recent vitamin B6 deficiency on 03/20/2024 therefore I will start the patient on vitamin B6 50 mg nightly Patient had a recent vitamin B12 and folate which were normal. I ordered ammonia level Is on home medication of Lamictal 150 mg twice daily, Klonopin 0.25 mg nightly, DepakoteER 250 mg nightly. I have increase the Depakote to 500ER qhs because of her suspicous discharges on EEG and concern for seizures. I will obtain a depakote level. I highly recommend the patient to obtain a repeat EEG as outpatient and if possible sleep deprived. Also recommend prolonged EEG as outpatient or Epilepsy monitoring unit since had multiple hospital visit recently for confusion to rule out seizures not seen on routine EEG. Avoid any further episodes of hypoglycemia and recommend controlling the hyponatremia. Cardiology is consulted for the bradycardia but it is as low as in the 50s Because of concern of seizure, avoid driving for 6 months until seizure free, avoid heights, swimming unassisted or using heavy machinery. Recommend the patient to follow-up with neurologist as outpatient within 1-2 weeks. Will defer the rest of the medical management the primary and other specialist. Plan discussed with the patient's nurse and primary team N.P. Time with Patient: Less than 30
[2024-03-28] MEDS: MAGNESIUM SULFATE-D5W PMX 1 GM in DEXTROSE/WATER 1 100ML.BAG IVPB ONE (15:25)
[2024-03-28 17:05] LABS: Glucose,Whole Blood 121 mg/dL (70-110)
[2024-03-28] MEDS ORDERED: DIVALPROEX ER 500 MG TAB.ER.24H PO SCH (21:00)
--- NOTE | 2024-04-01 10:50 | P.DS ---
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 Patient will follow-up with Dr. Wheeler in the outpatient setting upon discharge. Patient is to continue with current medications and close outpatient follow-up with neurology next week as scheduled. Total time taken is greater than 35 minutes. Hospital course This is a 68-year-old female who was recently admitted with falls with weakness and dizziness and hyponatremia. Patient being monitored by cardiology as well as neurology underwent MRI and further neurological workup including EEG and Depakote has been increased recommending close outpatient follow-up with repeat EEG and further workup as patient is adamant she is going home today. Patient reports to feeling improved and has had no dizziness or syncopal episodes during hospitalization. Patient has had multiple hospitalizations regarding this and is always adamant to leave and does not want to go to rehab. Patient has been cleared by consultations. Please refer to consultation notes for further HPI. Currently no reports of chest pain, shortness of breath, or palpitations. Patient is afebrile. No reports of nausea or vomiting and patient is tolerating diet. Patient will be discharged home today. Guarded prognosis and high risk for readmissions given patient's continued ongoing symptoms and her persistence of wanting to leave the hospital frequently. Physical exam: Gen: This is a 68-year-old female who is awake, alert and oriented x 3, well- developed, elderly appearing HEENT: Head is atraumatic, normocephalic. Pupils equal, round. Sclerae is anicteric. NECK: Supple. No JVD. No lymphadenopathy. No thyromegaly. LUNGS: Clear to auscultation. No wheezes or rhonchi. No intercostal retractions. HEART: Regular rate and rhythm. No murmur. ABDOMEN: Soft. Bowel sounds are present. No masses. No tenderness. EXTREMITIES: No pedal edema. No calf tenderness. NEUROLOGICAL: Patient is awake, alert and oriented x3. Cranial nerves 2 through 12 are grossly intact. Diffusely weak Please refer to medication reconciliation sheet for a list of medications. The impression and plan of care has been dictated by Audrey Curtis, Nurse Practitioner as directed. Dr. Micky MD I have performed a history and examination and MDM of this patient, discussed the same with the dictator, and agree with the dictator's assessment and plan as written ,documented as a scribe. Based on total visit time, I have performed more than 50% of the visit. Patient Condition at Discharge: Fair Plan - Discharge Summary New Discharge Prescriptions: New Pyridoxine [Vitamin B-6] 50 mg PO DAILY #30 tab Divalproex ER [Depakote ER] 500 mg PO HS #60 tab Continue Montelukast [Singulair] 10 mg PO HS Levothyroxine Sodium [Synthroid] 150 mcg PO DAILY Thiamine [Vitamin B-1] 100 mg PO DAILY@1700 Ipratropium-Albuterol Nebulize [Duoneb 0.5 mg-3 mg/3 ml Soln] 3 ml INHALATION RT-QID PRN PRN Reason: Shortness Of Breath clonazePAM [KlonoPIN ODT] 0.25 mg PO HS OLANZapine [ZyPREXA] 15 mg PO HS Albuterol Nebulized [Ventolin Nebulized] 5 mg INHALATION RT-QID PRN #60 each PRN Reason: Shortness Of Breath Or Wheezing lamoTRIgine [LaMICtal] 150 mg PO BID Budesonide/Formoterol Fumarate [Symbicort 160-4.5 Mcg Inhaler] 2 puff INHALATION RT-BID Famotidine [Pepcid] 20 mg PO BID Tamsulosin [Flomax] 0.4 mg PO DAILY@1200 Ferrous Sulfate [Iron (65 MG Elemental)] 325 mg PO DAILY Albuterol Inhaler [Ventolin Hfa Inhaler] 2 puff INHALATION RT-QID PRN #1 each PRN Reason: Shortness Of Breath Melatonin 5 mg PO HS PRN PRN Reason: Insomnia Ibandronate Sodium [Boniva] 150 mg PO Q30D Acetaminophen [Tylenol Arthritis] 650 mg PO Q4HR PRN PRN Reason: Pain amLODIPine [Norvasc] 5 mg PO DAILY HYDROcodone/APAP 5-325MG [[place] 5-325] 1 tab PO Q6HR PRN 3 Days #12 tab PRN Reason: Pain hydrOXYzine HCL [Atarax] 25 mg PO BID Folic Acid 1 mg PO DAILY@1700 Venlafaxine HCl ER [Effexor XR] 150 mg PO DAILY Discontinued Divalproex ER [Depakote ER] 250 mg PO HS Metoprolol Tartrate [Lopressor] 25 mg PO BID lisinopriL [Zestril] 20 mg PO DAILY Naproxen [Naprosyn] 500 mg PO BID 30 Days #60 tablet Cefuroxime [Ceftin] 500 mg PO BID Discharge Medication List Montelukast [Singulair] 10 mg PO HS 12/17/13 [History] Levothyroxine Sodium [Synthroid] 150 mcg PO DAILY 03/29/20 [History] Budesonide/Formoterol Fumarate [Symbicort 160-4.5 Mcg Inhaler] 2 puff INHALATION RT-BID 06/12/21 [History] Famotidine [Pepcid] 20 mg PO BID 09/03/21 [History] Tamsulosin [Flomax] 0.4 mg PO DAILY@1200 10/26/21 [History] Ferrous Sulfate [Iron (65 MG Elemental)] 325 mg PO DAILY 11/13/22 [History] Ipratropium-Albuterol Nebulize [Duoneb 0.5 mg-3 mg/3 ml Soln] 3 ml INHALATION RT-QID PRN 11/13/22 [History] Thiamine [Vitamin B-1] 100 mg PO DAILY@1700 11/13/22 [History] Albuterol Inhaler [Ventolin Hfa Inhaler] 2 puff INHALATION RT-QID PRN #1 each 11/17/22 [Rx] Ibandronate Sodium [Boniva] 150 mg PO Q30D 05/03/23 [History] Melatonin 5 mg PO HS PRN 05/03/23 [History] Acetaminophen [Tylenol Arthritis] 650 mg PO Q4HR PRN 10/24/23 [History] amLODIPine [Norvasc] 5 mg PO DAILY 12/12/23 [History] clonazePAM [KlonoPIN ODT] 0.25 mg PO HS 12/12/23 [History] OLANZapine [ZyPREXA] 15 mg PO HS 01/22/24 [History] Albuterol Nebulized [Ventolin Nebulized] 5 mg INHALATION RT-QID PRN #60 each 01/24/24 [Rx] HYDROcodone/APAP 5-325MG [[place] 5-325] 1 tab PO Q6HR PRN 3 Days #12 tab 03/15/24 [Rx] Folic Acid 1 mg PO DAILY@1700 03/18/24 [History] Venlafaxine HCl ER [Effexor XR] 150 mg PO DAILY 03/18/24 [History] hydrOXYzine HCL [Atarax] 25 mg PO BID 03/18/24 [History] lamoTRIgine [LaMICtal] 150 mg PO BID 03/18/24 [History] Divalproex ER [Depakote ER] 500 mg PO HS #60 tab 03/28/24 [Rx] Pyridoxine [Vitamin B-6] 50 mg PO DAILY #30 tab 03/28/24 [Rx] Follow up Appointment(s)/Referral(s): Andrzej Wheeler MD [Primary Care Provider] - 04/03/24 2:00 pm (appointment with Opal OGLESBY) Cezar Flores MD [REFERRING] - 1 Week (the office will call patient to set up a appointment.) Patient Instructions/Handouts: Pyridoxine (By mouth), Divalproex (By mouth), Hyponatremia (DC), Anxiety (GEN) Activity/Diet/Wound Care/Special Instructions: activity limited until follow up follow up with neurology on discharge continue current medications follow up pcp on discharge Discharge Disposition: HOME SELF-CARE
== END 2024-03-28 18:03 | disposition home or self-care (01) | DRG 640 ==
LOC: EC 17:10 → 5NMEDONC 22:41
PROVIDERS: ADMIT Hospitalist; ATTEND Hospitalist
DX: E87.1 Hypo-osmolality and hyponatremia (principal); G93.41 Metabolic encephalopathy; M47.12 Other spondylosis with myelopathy, cervical region; I11.0 Hypertensive heart disease with heart failure; I50.9 Heart failure, unspecified; E03.9 Hypothyroidism, unspecified; E04.1 Nontoxic single thyroid nodule; J44.89 Other specified chronic obstructive pulmonary disease; E78.5 Hyperlipidemia, unspecified; H53.8 Other visual disturbances; E16.2 Hypoglycemia, unspecified; S05.11XA Contusion of eyeball and orbital tissues, right eye, initial encounter; M48.02 Spinal stenosis, cervical region; G89.29 Other chronic pain; E53.1 Pyridoxine deficiency; F41.9 Anxiety disorder, unspecified; M54.81 Occipital neuralgia; S80.01XA Contusion of right knee, initial encounter; E87.5 Hyperkalemia; F17.210 Nicotine dependence, cigarettes, uncomplicated; R00.1 Bradycardia, unspecified; R29.6 Repeated falls; W05.0XXA Fall from non-moving wheelchair, initial encounter; Z91.198 Patient's noncompliance with other medical treatment and regimen for other reason; Z86.711 Personal history of pulmonary embolism; Z91.81 History of falling; Z79.890 Hormone replacement therapy; Z79.51 Long term (current) use of inhaled steroids; Z79.1 Long term (current) use of non-steroidal anti-inflammatories (NSAID); Z87.19 Personal history of other diseases of the digestive system; Z98.84 Bariatric surgery status; Z79.899 Other long term (current) drug therapy; Z88.5 Allergy status to narcotic agent; Z88.0 Allergy status to penicillin; Z88.2 Allergy status to sulfonamides
CPT/HCPCS: 12004; 36415; 70450; 70480; 70496; 70498; 70553; 71046; 72125; 73502; 80048; 80053; 80164; 80165; 81003; 82140; 82330; 83735; 83880; 83930; 83935; 84100; 84443; 84484; 85025; 85610; 85730; 90471; 90715; 93005; 94640; 94760; 95816; 96361; 96365; 96366; 96375; 99291

== ENCOUNTER 2024-03-30 10:40 | Emergency (ER) | payer MEDICARE ==
[2024-03-30 10:52] VITALS: TEMP 98.4
--- NOTE | 2024-03-30 11:30 | ED ---
General Adult HPI - General Chief complaint: Abdominal Pain Stated complaint: Abdominal Time Seen by Provider: 03/30/24 11:11 Source: patient, family, RN notes reviewed Mode of arrival: wheelchair Limitations: no limitations - History of Present Illness Initial comments: Patient is a 68-year-old female present to the emergency department with concerns with abdominal pain. Patient states symptoms are chronic however worse the past few days. Patient feels she may be constipated. Patient has abdominal discomfort left side and umbilical. Patient also complains of dizziness which is also chronic. Patient also complains of chronic diffuse pain. - Related Data Home Medications Medication Instructions Recorded Confirmed Montelukast [Singulair] 10 mg PO HS 12/17/13 03/30/24 Levothyroxine Sodium [Synthroid] 150 mcg PO DAILY 03/29/20 03/30/24 Budesonide/Formoterol Fumarate 2 puff INHALATION RT-BID 06/12/21 03/30/24 [Symbicort 160-4.5 Mcg Inhaler] Famotidine [Pepcid] 20 mg PO BID 09/03/21 03/30/24 Tamsulosin [Flomax] 0.4 mg PO DAILY@1200 10/26/21 03/30/24 Ferrous Sulfate [Iron (65 MG 325 mg PO DAILY 11/13/22 03/30/24 Elemental)] Ipratropium-Albuterol Nebulize 3 ml INHALATION RT-QID PRN 11/13/22 03/30/24 [Duoneb 0.5 mg-3 mg/3 ml Soln] Thiamine [Vitamin B-1] 100 mg PO DAILY@1700 11/13/22 03/30/24 Ibandronate Sodium [Boniva] 150 mg PO Q30D 05/03/23 03/30/24 Melatonin 5 mg PO HS PRN 05/03/23 03/30/24 Acetaminophen [Tylenol Arthritis] 650 mg PO Q4HR PRN 10/24/23 03/30/24 amLODIPine [Norvasc] 5 mg PO DAILY 12/12/23 03/30/24 clonazePAM [KlonoPIN ODT] 0.25 mg PO HS 12/12/23 03/30/24 OLANZapine [ZyPREXA] 15 mg PO HS 01/22/24 03/30/24 Folic Acid 1 mg PO DAILY@1700 03/18/24 03/30/24 Venlafaxine HCl ER [Effexor XR] 150 mg PO DAILY 03/18/24 03/30/24 hydrOXYzine HCL [Atarax] 25 mg PO BID 03/18/24 03/30/24 lamoTRIgine [LaMICtal] 150 mg PO BID 03/18/24 03/30/24 Previous Rx's Medication Instructions Recorded Albuterol Inhaler [Ventolin Hfa 2 puff INHALATION RT-QID PRN #1 11/17/22 Inhaler] each Albuterol Nebulized [Ventolin 5 mg INHALATION RT-QID PRN #60 each 01/24/24 Nebulized] HYDROcodone/APAP 5-325MG [Freedom 1 tab PO Q6HR PRN 3 Days #12 tab 03/15/24 5-325] Divalproex ER [Depakote ER] 500 mg PO HS #60 tab 03/28/24 Pyridoxine [Vitamin B-6] 50 mg PO DAILY #30 tab 03/28/24 Allergies Allergy/AdvReac Type Severity Reaction Status Date / Time codeine Allergy Unknown Verified 03/30/24 13:26 Childhood Penicillins Allergy Rash/Hives Verified 03/30/24 13:26 Sulfa (Sulfonamide Allergy Rash/Hives Verified 03/30/24 13:26 Antibiotics) Review of Systems ROS Statement: Those systems with pertinent positive or pertinent negative responses have been documented in the HPI. ROS Other: All systems not noted in ROS Statement are negative. Constitutional: Denies: fever Eyes: Denies: eye pain ENT: Denies: ear pain Respiratory: Denies: dyspnea Cardiovascular: Denies: chest pain Endocrine: Denies: fatigue Gastrointestinal: Reports: as per HPI, abdominal pain, constipation Musculoskeletal: Denies: back pain Skin: Denies: rash Neurological: Reports: vertigo Past Medical History Past Medical History: Asthma, Heart Failure, COPD, Fibromyalgia, GERD/Reflux, Hypertension, Osteoarthritis (OA), Pneumonia, Pulmonary Embolus (PE), Skin Disorder, Thyroid Disorder Additional Past Medical History / Comment(s): Spinal Stenosis, Cervical disc disease/stenosis, scoliosis, recently having numbness/tingling L side of face/neck, recently saw certified nursing assistant instructor for L hemidiaphragmatic elevation-pt states she was told this was probably genetic, recently bronchitis and past bronchitis, pt states recent med change (water pill) d/t electrolyte problem/kidney function being affected, pt states she has had pulmonary emboli, past bilateral lower extremity cellulitis, edema lower extremities, IBS, hemorrhoids, benign colon polyps, sinus problems, UTIs, bacteremia/sepsis, cardiac murmur, past L ankle and L wrist fractures. History of Any Multi-Drug Resistant Organisms: None Reported Past Surgical History: Bariatric Surgery, Section, Cholecystectomy, Hysterectomy, Tonsillectomy Additional Past Surgical History / Comment(s): EGD, colonoscopies, gastric bypass, surgery for deviated septum, left cataract removal (having laser procedure on that eye 11/24/23) Past Anesthesia/Blood Transfusion Reactions: Previous Problems w/ Anesthesia Additional Past Anesthesia/Blood Transfusion Reaction / Comment(s): itching after hysterectomy, some kind of breathing problem after gastric bypass-not sure what happened Past Psychological History: Anxiety, Bipolar, Depression, Panic Disorder Smoking Status: Current every day smoker Past Alcohol Use History: None Reported Past Drug Use History: Marijuana - Past Family History Mother Family Medical History: Congestive Heart Failure (CHF), Hypertension Father History Unknown: Yes Additional Family Medical History / Comment(s): Father at the age of 45 yrs d/t having had rheumatic fever as a child and heart valve disease. General Exam Limitations: no limitations General appearance: alert, in no apparent distress Head exam: Present: normocephalic Eye exam: Present: normal appearance, PERRL, EOMI ENT exam: Present: normal oropharynx Neck exam: Present: normal inspection Respiratory exam: Present: normal lung sounds bilaterally Cardiovascular Exam: Present: regular rate, normal rhythm GI/Abdominal exam: Present: soft, tenderness ( mild left-sided tenderness), normal bowel sounds. Absent: distended, guarding, rebound, rigid, pulsatile mass Neurological exam: Present: alert. Absent: motor sensory deficit Psychiatric exam: Present: normal affect, normal mood Skin exam: Present: normal color Course Vital Signs 03/30/24 03/30/24 10:49 12:33 Temperature 98.4 F Pulse Rate 70 68 Respiratory 16 18 Rate Blood Pressure 105/58 125/65 O2 Sat by Pulse 90 L 94 L Oximetry Medical Decision Making - Medical Decision Making Was pt. sent in by a medical professional or institution (, PA, CARDIOLOGY CLINICAL CONSULTANT, urgent care, hospital, or halfway...) When possible be specific @ -No Did you speak to anyone other than the patient for history (EMS, parent, family, police, friend...)? What history was obtained from this source @ -No Did you review nursing and triage notes (agree or disagree)? Why? @ -I reviewed and agree with nursing and triage notes Were old charts reviewed (outside hosp., previous admission, EMS record, old EKG, old radiological studies, urgent care reports/EKG's, halfway records)? Report findings @ -Multiple previous imaging studies reviewed. Previous sodium levels also reviewed Differential Diagnosis (chest pain, altered mental status, abdominal pain women, abdominal pain men, vaginal bleeding, weakness, fever, dyspnea, syncope, head ache, dizziness, GI bleed, back pain, seizure, CVA, palpatations, mental health, musculoskeletal)? @ -Differential Abdominal Pain Women: Appendicitis, Cholecystitis, diverticulosis, ischemic bowel, pancreatitis, hepatitis, UTI, gastroenteritis, AAA, incarcerated hernia, bowel obstruction, constipation, inflammatory bowel, hepatitis, peptic ulcer disease, splenic infarction, perforated viscus, vulvitis, ovarian torsion, PID, kidney stone, placenta abruption, this is not meant to be an all-inclusive list EKG interpreted by me (3pts min.). @ -As above X-rays interpreted by me (1pt min.). @ -None done CT interpreted by me (1pt min.). @ -CT scan abdomen pelvis does show increased stool, scoliosis, adrenal mass U/S interpreted by me (1pt. min.). @ -None done What testing was considered but not performed or refused? (CT, X-rays, U/S, labs)? Why? @ -None What meds were considered but not given or refused? Why? @ -None Did you discuss the management of the patient with other professionals (professionals i.e. Dr., PA, CARDIOLOGY CLINICAL CONSULTANT, lab, RT, psych nurse, renal social worker, avionics systems engineer, teacher, navy airspace officer, case finishing machine adjuster)? Give summary @ -No Was smoking cessation discussed for >3mins.? @ -No Was critical care preformed (if so, how long)? @ -No Were there social determinants of health that impacted care today? How? (Homelessness, low income, unemployed, alcoholism, drug addiction, transportatio n, low edu. Level, literacy, decrease access to med. care, residential, rehab)? @ -No Was there de-escalation of care discussed even if they declined (Discuss DNR or withdrawal of care, Hospice)? DNR status @ -No What co-morbidities impacted this encounter? (DM, HTN, Smoking, COPD, CAD, Cancer, CVA, ARF, Chemo, Hep., AIDS, mental health diagnosis, sleep apnea, morbid obesity)? @ -History of chronic abdominal pain and history of constipation Was patient admitted / discharged? Hospital course, mention meds given and route, prescriptions, significant lab abnormalities, going to OR and other pertinent info. @ -Patient reevaluated and resting comfortably in bed. Patient will be provided enema and discharge. Patient updated on results and plan Undiagnosed new problem with uncertain prognosis? @ -No Drug Therapy requiring intensive monitoring for toxicity (Heparin, Nitro, Insulin, Cardizem)? @ -No Were any procedures done? @ -No Diagnosis/symptom? @ -Constipation, abdominal pain, dizziness Acute, or Chronic, or Acute on Chronic? @ -Acute on chronic, acute on chronic, acute on chronic Uncomplicated (without systemic symptoms) or Complicated (systemic symptoms)? @ -Default Side effects of treatment? @ -No Exacerbation, Progression, or Severe Exacerbation? @ -No Poses a threat to life or bodily function? How? (Chest pain, [place], [place], pneumonia, PE, COPD, DKA, ARF, appy, cholecystitis, CVA, Diverticulitis, Homicidal, Suicidal, threat to staff... and all critical care pts) @ -No - Lab Data Result diagrams: 03/30/24 11:41 03/30/24 11:41 Lab Results 03/30/24 03/30/24 03/30/24 Range/Units 11:41 11:41 11:41 WBC 12.8 H (3.8-10.6) k/uL RBC 3.39 L (3.80-5.40) m/uL Hgb 10.6 L (11.4-16.0) gm/dL Hct 32.8 L (34.0-46.0) % MCV 96.5 (80.0-100.0) fL MCH 31.1 (25.0-35.0) pg MCHC 32.3 (31.0-37.0) g/dL RDW 13.2 (11.5-15.5) % Plt Count 416 (150-450) k/uL MPV 6.4 Neutrophils % 80 % Lymphocytes % 10 % Monocytes % 6 % Eosinophils % 2 % Basophils % 1 % Neutrophils # 10.3 H (1.3-7.7) k/uL Lymphocytes # 1.3 (1.0-4.8) k/uL Monocytes # 0.7 (0-1.0) k/uL Eosinophils # 0.2 (0-0.7) k/uL Basophils # 0.1 (0-0.2) k/uL PT 10.2 (10.0-12.5) sec INR 0.9 (<1.2) APTT 30.2 H (22.0-30.0) sec Sodium 128 L (137-145) mmol/L Potassium 4.5 (3.5-5.1) mmol/L Chloride 92 L (98-107) mmol/L Carbon Dioxide 33 H (22-30) mmol/L Anion Gap 3 mmol/L BUN 19 H (7-17) mg/dL Creatinine 0.68 (0.52-1.04) mg/dL Est GFR (CKD-EPI)AfAm >90 (>60 ml/min/1.73 sqM) Est GFR (CKD-EPI)NonAf >90 (>60 ml/min/1.73 sqM) Glucose 87 (74-99) mg/dL Calcium 9.3 (8.4-10.2) mg/dL Total Bilirubin 0.5 (0.2-1.3) mg/dL AST 32 (14-36) U/L ALT 21 (4-34) U/L Alkaline Phosphatase 70 (38-126) U/L Total Protein 5.3 L (6.3-8.2) g/dL Albumin 3.1 L (3.5-5.0) g/dL Amylase 36 (30-110) U/L Lipase 51 (23-300) U/L Disposition Clinical Impression: Constipation, Dizziness, Abdominal pain Disposition: HOME SELF-CARE Condition: Stable Instructions (If sedation given, give patient instructions): Abdominal Pain (ED), Constipation (ED), High Fiber Diet (ED) Additional Instructions: Please do follow-up with your primary care physician in the next 1 or 2 days for recheck. Return for increased pain, dizziness, difficulty walking, confusion, w orsening or changing symptoms or any other concerns. Have your primary care physician review CT scan done today and consider further imaging to evaluate for adrenal changes Is patient prescribed a controlled substance at d/c from ED?: No Referrals: Andrzej Wheeler MD [Primary Care Provider] - 1-2 days Time of Disposition: 13:51
[2024-03-30 12:09] LABS: Basophils # (A) 0.1 k/uL (0-0.2); Basophils % (A) 1 %; Eosinophils # (A) 0.2 k/uL (0-0.7); Eosinophils % (A) 2 %; HCT 32.8 % (34.0-46.0); HGB 10.6 gm/dL (11.4-16.0); Lymphocytes # (A) 1.3 k/uL (1.0-4.8); Lymphocytes % (A) 10 %; MCH 31.1 pg (25.0-35.0); MCHC 32.3 g/dL (31.0-37.0); MCV 96.5 fL (80.0-100.0); Mean Platelet Volume 6.4; Monocytes # (A) 0.7 k/uL (0-1.0); Monocytes % (A) 6 %; Neutrophils # (A) 10.3 k/uL (1.3-7.7); Neutrophils % (A) 80 %; Platelet Count 416 k/uL (150-450); RBC 3.39 m/uL (3.80-5.40); RDW 13.2 % (11.5-15.5); WBC 12.8 k/uL (3.8-10.6)
[2024-03-30 12:23] LABS: INR 0.9 (<1.2); Partial Thromboplastin Time 30.2 sec (22.0-30.0); Prothrombin Time 10.2 sec (10.0-12.5)
[2024-03-30 12:32] LABS: ALT 21 U/L (4-34); AST 32 U/L (14-36); African American GFR (CKD) >90 (>60 ml/min/1.73 sqM); Albumin 3.1 g/dL (3.5-5.0); Alkaline Phosphatase 70 U/L (38-126); Amylase 36 U/L (30-110); Anion Gap 3 mmol/L; Blood Urea Nitrogen 19 mg/dL (7-17); Calcium 9.3 mg/dL (8.4-10.2); Carbon Dioxide 33 mmol/L (22-30); Chloride 92 mmol/L (98-107); Glucose 87 mg/dL (74-99); Lipase 51 U/L (23-300); Non-African American GFR(CKD) >90 (>60 ml/min/1.73 sqM); Potassium 4.5 mmol/L (3.5-5.1); Sodium 128 mmol/L (137-145); Total Bilirubin 0.5 mg/dL (0.2-1.3); Total Protein 5.3 g/dL (6.3-8.2)
[2024-03-30] MEDS: MECLIZINE 12.5 MG TAB PO STA (12:39)
[2024-03-30] MEDS: SODIUM CHLORIDE 0.9% 1,000 ML IV STA (12:43)
[2024-03-30] MEDS: METOCLOPRAMIDE 5 MG/ML 2 ML VIAL IVP STA (12:44)
[2024-03-30] MEDS: MORPHINE SULFATE 4 MG/ML SYRINGE IVP STA (12:48)
--- NOTE | 2024-03-30 13:40 | CT ---
EXAMINATION TYPE: CT abdomen pelvis w con CT DLP: 1139.6 mGycm, Automated exposure control for dose reduction was used. DATE OF EXAM: 03/30/2024 1:24 PM COMPARISON: CT abdomen pelvis most recent from CLINICAL INDICATION: Female, 68 years old with history of abdominal pain; abd pain TECHNIQUE: Axial CT abdomen pelvis w con;Sagittal and coronal reformats were created on a separate w orkstation. Contrast used:100 mL of Isovue 300 with IV Contrast, (none if empty) Oral contrast used: without Oral Contrast (none if empty) FINDINGS: LOWER CHEST: Streaky edema in the lung bases. The heart is mildly enlarged for size. ABDOMEN LIVER: Unremarkable GALLBLADDER AND BILE DUCTS: Gallbladder is surgically absent with mild intrahepatic and extra hepatic biliary dilatation likely physiologic and a postcholecystectomy change. No evidence of choledocholit hiasis. PANCREAS: Unremarkable. SPLEEN: Measures 12.9 cm. ADRENAL GLANDS: Right adrenal 31 x 21 mm nodule which is indeterminate. The left adrenal nodules. KIDNEYS AND URETERS: Nonobstructing bilateral renal calculi measuring up to 2 mm. PELVIS BLADDER: Unremarkable REPRODUCTIVE: Unremarkable. ABDOMEN & PELVIS STOMACH AND BOWEL: No evidence of bowel obstruction. Large stool burden in the colon. Postsurgical ch anges to the stomach. PERITONEUM/RETROPERITONEUM: No evidence of pneumoperitoneum or free fluid. VASCULATURE: No evidence of aortic aneurysm. MUSCULOSKELETAL: No acute osseous abnormalities. Severe disc degeneration changes are present through out the thoracolumbar spine. Scoliosis changes to the spine apex left L2-L3. LYMPH NODES: No gross evidence for lymphadenopathy. SOFT TISSUE/ABDOMINAL WALL: Unremarkable IMPRESSION: 1. Large stool throughout the abdomen correlate for constipation. 2. Nonobstructing bilateral renal calculi. 3. Right indeterminate adrenal nodule consider adrenal mass protocol CT. 4. Severe scoliosis changes to the lumbar spine. 5. Streaky edema in the lung bases with cardiomegaly correlate for congestive heart failure.
[2024-03-30] MEDS: LACTULOSE 20 GM/30 ML CUP PO ONE (15:18)
[2024-03-30 15:28] VITALS: BP 111/51; PULSE 75; RESP 20
== END 2024-03-30 15:28 | disposition home or self-care (01) ==
LOC: EC 10:40
DX: K59.00 Constipation, unspecified (principal); R42 Dizziness and giddiness; F17.200 Nicotine dependence, unspecified, uncomplicated; N20.0 Calculus of kidney; Z88.0 Allergy status to penicillin; Z88.5 Allergy status to narcotic agent; Z88.2 Allergy status to sulfonamides; Z88.1 Allergy status to other antibiotic agents
CPT/HCPCS: 36415; 80053; 82150; 83690; 85025; 85610; 85730; 74177; 99285; 96374; 96375; 96361 ×3; J2270; J2765; Q9967

== ENCOUNTER 2024-04-01 15:50 | Inpatient (IN) | payer MEDICARE ==
--- NOTE | 2024-04-01 16:34 | ED ---
Neuro HPI - General Chief Complaint: Neuro Symptoms/Deficit Stated Complaint: blurred vision Time Seen by Provider: 04/01/24 16:10 Source: patient, family, RN notes reviewed, old records reviewed, Caregiver Mode of arrival: wheelchair Limitations: no limitations - History of Present Illness Is the patient presenting with stroke symptoms?: No -: hour(s) Initial Comments: This is a 68-year-old female who presents with blurry vision blurry vision throughout the day today. Patient states she is feeling 2 things are most double vision, she did some Internet searching and became concerned that she may have some significant issue occurring. History of same: Yes Place: home Severity: mild Quality: weak Improves With: none Worsens With: none On Anticoagulants: No Associated Symptoms: confusion Treatments Prior to Arrival: none - Related Data Home Medications: Home Medications Medication Instructions Recorded Confirmed Montelukast [Singulair] 10 mg PO HS 12/17/13 04/01/24 Levothyroxine Sodium [Synthroid] 150 mcg PO DAILY 03/29/20 04/01/24 Budesonide/Formoterol Fumarate 2 puff INHALATION RT-BID 06/12/21 04/01/24 [Symbicort 160-4.5 Mcg Inhaler] Famotidine [Pepcid] 20 mg PO BID 09/03/21 04/01/24 Tamsulosin [Flomax] 0.4 mg PO DAILY@1200 10/26/21 04/01/24 Ferrous Sulfate [Iron (65 MG 325 mg PO DAILY 11/13/22 04/01/24 Elemental)] Ipratropium-Albuterol Nebulize 3 ml INHALATION RT-QID PRN 11/13/22 04/01/24 [Duoneb 0.5 mg-3 mg/3 ml Soln] Thiamine [Vitamin B-1] 100 mg PO DAILY@1700 11/13/22 04/01/24 Ibandronate Sodium [Boniva] 150 mg PO Q30D 05/03/23 04/01/24 Melatonin 5 mg PO HS PRN 05/03/23 04/01/24 Acetaminophen [Tylenol Arthritis] 650 mg PO Q4HR PRN 10/24/23 04/01/24 amLODIPine [Norvasc] 5 mg PO DAILY 12/12/23 04/01/24 clonazePAM [KlonoPIN ODT] 0.25 mg PO HS 12/12/23 04/01/24 OLANZapine [ZyPREXA] 15 mg PO HS 01/22/24 04/01/24 Folic Acid 1 mg PO DAILY@1700 03/18/24 04/01/24 Venlafaxine HCl ER [Effexor XR] 150 mg PO DAILY 03/18/24 04/01/24 hydrOXYzine HCL [Atarax] 25 mg PO BID 03/18/24 04/01/24 lamoTRIgine [LaMICtal] 150 mg PO BID 03/18/24 04/01/24 Gabapentin 300 mg PO TID 04/09/24 04/09/24 Previous Rx's Medication Instructions Recorded Albuterol Inhaler [Ventolin Hfa 2 puff INHALATION RT-QID PRN #1 11/17/22 Inhaler] each Albuterol Nebulized [Ventolin 5 mg INHALATION RT-QID PRN #60 each 01/24/24 Nebulized] HYDROcodone/APAP 5-325MG [[place] 1 tab PO Q6HR PRN 3 Days #12 tab 03/15/24 5-325] Divalproex ER [Depakote ER] 500 mg PO HS #60 tab 03/28/24 Pyridoxine [Vitamin B-6] 50 mg PO DAILY #30 tab 03/28/24 Ceftolozane/Tazobactam [Zerbaxa 3 gm IV Q8HR 7 Days #21 each 04/13/24 1.5 Gram Vial] Collagenase [Santyl Ointment] 1 applic TOPICAL DAILY each 04/13/24 Nicotine 14Mg/24Hr Patch [Habitrol] 1 patch TRANSDERM DAILY patch 04/13/24 QUEtiapine [SEROquel] 25 mg PO BID 30 Days #60 tab 04/13/24 Sennosides [Senokot] 8.6 mg PO BID PRN tab 04/13/24 metroNIDAZOLE [Flagyl] 500 mg PO TID 7 Days #21 tab 04/13/24 Allergies/Adverse Reactions: Allergies Allergy/AdvReac Type Severity Reaction Status Date / Time codeine Allergy Unknown Verified 04/01/24 18:35 Childhood Penicillins Allergy Rash/Hives Verified 04/01/24 18:35 Sulfa (Sulfonamide Allergy Rash/Hives Verified 04/01/24 18:35 Antibiotics) Review of Systems ROS Statement: Those systems with pertinent positive or pertinent negative responses have been documented in the HPI. ROS Other: All systems not noted in ROS Statement are negative. General Exam Limitations: no limitations General appearance: alert, in no apparent distress Head exam: Present: atraumatic, normocephalic, normal inspection Eye exam: Present: normal appearance, PERRL, EOMI. Absent: scleral icterus, conjunctival injection, periorbital swelling ENT exam: Present: normal exam, mucous membranes moist Neck exam: Present: normal inspection. Absent: tenderness, meningismus, lymp hadenopathy Respiratory exam: Present: normal lung sounds bilaterally. Absent: respiratory distress, wheezes, rales, rhonchi, stridor Cardiovascular Exam: Present: regular rate, normal rhythm, normal heart sounds. Absent: systolic murmur, diastolic murmur, rubs, gallop, clicks GI/Abdominal exam: Present: soft, normal bowel sounds. Absent: distended, tenderness, guarding, rebound, rigid Extremities exam: Present: normal inspection, full ROM, normal capillary refill. Absent: tenderness, pedal edema, joint swelling, calf tenderness Back exam: Present: normal inspection Neurological exam: Present: alert, oriented X3, CN II-XII intact Psychiatric exam: Present: normal affect, normal mood Skin exam: Present: warm, dry, intact, normal color. Absent: rash Stroke MDM - Lab Data Result diagrams: 04/11/24 02:45 04/11/24 02:45 Lab Results 04/01/24 04/01/24 04/01/24 Range/Units 16:46 16:46 16:46 WBC 12.6 H (3.8-10.6) k/uL RBC 3.67 L (3.80-5.40) m/uL Hgb 11.4 (11.4-16.0) gm/dL Hct 35.9 (34.0-46.0) % MCV 97.8 (80.0-100.0) fL MCH 31.1 (25.0-35.0) pg MCHC 31.8 (31.0-37.0) g/dL RDW 13.6 (11.5-15.5) % Plt Count 561 H (150-450) k/uL MPV 6.8 Immature Gran % (Auto) % Absolute Nucleated RBC % Neutrophils % 72 % Lymphocytes % 16 % Monocytes % 7 % Eosinophils % 2 % Basophils % 1 % Immature Gran # (0.00-0.04) X 10*3/uL Neutrophils # 9.1 H (1.3-7.7) k/uL Lymphocytes # 2.0 (1.0-4.8) k/uL Monocytes # 0.9 (0-1.0) k/uL Eosinophils # 0.3 (0-0.7) k/uL Basophils # 0.1 (0-0.2) k/uL NRBC/100 WBC Diff (0.00-0.01) X 10*3/uL Hypochromasia Slight ESR (0-30) mm/Hr PT 10.9 (10.0-12.5) sec INR 1.0 (<1.2) APTT 28.0 (22.0-30.0) sec D-Dimer (<0.60) mg/L FEU Sodium 126 L (137-145) mmol/L Potassium 5.1 (3.5-5.1) mmol/L Chloride 86 L (98-107) mmol/L Carbon Dioxide 31 H (22-30) mmol/L Anion Gap 9 mmol/L BUN 29 H (7-17) mg/dL Creatinine 0.87 (0.52-1.04) mg/dL Est GFR (CKD-EPI) (>=60) Est GFR (CKD-EPI)AfAm 81 (>60 ml/min/1.73 sqM) Est GFR (CKD-EPI)NonAf 70 (>60 ml/min/1.73 sqM) BUN/Creatinine Ratio (12.00-20.00) Ratio Glucose 80 (74-99) mg/dL Osmolality (275-295) mOsm/kg Plasma Lactic Acid Joel (0.7-2.0) mmol/L Calcium 10.1 (8.4-10.2) mg/dL Phosphorus 3.8 (2.5-4.5) mg/dL Magnesium 1.9 (1.6-2.3) mg/dL Total Bilirubin 0.6 (0.2-1.3) mg/dL AST 40 H (14-36) U/L ALT 23 (4-34) U/L Alkaline Phosphatase 69 (38-126) U/L Troponin I (0.000-0.034) ng/mL C-Reactive Protein (<1.0) mg/dL NT-Pro-B Natriuret Pep 1590 pg/mL Total Protein 6.0 L (6.3-8.2) g/dL Albumin 3.7 (3.5-5.0) g/dL Globulin (1.6-3.3) g/dL Albumin/Globulin Ratio (1.60-3.17) Ratio Procalcitonin (0.02-0.50) ng/mL TSH (0.350-5.500) UIU/ML Free (T4) Reflex I (0.80-1.80) ng/dL Urine Color Urine Appearance (Clear) Urine pH (5.0-8.0) Ur Specific [place] (1.001-1.035) Urine Protein (Negative) Urine Glucose (UA) (Negative) Urine Ketones (Negative) Urine Blood (Negative) Urine Nitrite (Negative) Urine Bilirubin (Negative) Urine Urobilinogen (<2.0) mg/dL Ur Leukocyte Esterase (Negative) Urine RBC (0-5) /hpf Urine WBC (0-5) /hpf Ur Squamous Epith Cells (0-4) /hpf Hyaline Casts (0-2) /lpf Urine Mucus (None) /hpf Urine Osmolality (400-1100) mOsm/kg Ur Random Sodium (40-220) mmol/L 04/01/24 04/01/24 04/02/24 Range/Units 16:46 16:46 03:11 WBC 14.69 H (3.8-10.6) k/uL RBC 3.53 L (3.80-5.40) m/uL Hgb 10.9 L (11.4-16.0) gm/dL Hct 35.1 L (34.0-46.0) % MCV 99.4 H (80.0-100.0) fL MCH 30.9 (25.0-35.0) pg MCHC 31.1 L (31.0-37.0) g/dL RDW 13.7 (11.5-15.5) % Plt Count 467 H (150-450) k/uL MPV 9.0 L Immature Gran % (Auto) 4.70 % Absolute Nucleated RBC 0 % Neutrophils % 61.8 % Lymphocytes % 19.9 % Monocytes % 10.2 % Eosinophils % 2.0 % Basophils % 1.4 % Immature Gran # 0.69 H (0.00-0.04) X 10*3/uL Neutrophils # 9.08 H (1.3-7.7) k/uL Lymphocytes # 2.92 (1.0-4.8) k/uL Monocytes # 1.50 H (0-1.0) k/uL Eosinophils # 0.30 (0-0.7) k/uL Basophils # 0.20 H (0-0.2) k/uL NRBC/100 WBC Diff 0 (0.00-0.01) X 10*3/uL Hypochromasia ESR (0-30) mm/Hr PT (10.0-12.5) sec INR (<1.2) APTT (22.0-30.0) sec D-Dimer (<0.60) mg/L FEU Sodium (137-145) mmol/L Potassium (3.5-5.1) mmol/L Chloride (98-107) mmol/L Carbon Dioxide (22-30) mmol/L Anion Gap mmol/L BUN (7-17) mg/dL Creatinine (0.52-1.04) mg/dL Est GFR (CKD-EPI) (>=60) Est GFR (CKD-EPI)AfAm (>60 ml/min/1.73 sqM) Est GFR (CKD-EPI)NonAf (>60 ml/min/1.73 sqM) BUN/Creatinine Ratio (12.00-20.00) Ratio Glucose (74-99) mg/dL Osmolality (275-295) mOsm/kg Plasma Lactic Acid Joel 0.7 (0.7-2.0) mmol/L Calcium (8.4-10.2) mg/dL Phosphorus (2.5-4.5) mg/dL Magnesium (1.6-2.3) mg/dL Total Bilirubin (0.2-1.3) mg/dL AST (14-36) U/L ALT (4-34) U/L Alkaline Phosphatase (38-126) U/L Troponin I <0.012 (0.000-0.034) ng/mL C-Reactive Protein (<1.0) mg/dL NT-Pro-B Natriuret Pep pg/mL Total Protein (6.3-8.2) g/dL Albumin (3.5-5.0) g/dL Globulin (1.6-3.3) g/dL Albumin/Globulin Ratio (1.60-3.17) Ratio Procalcitonin (0.02-0.50) ng/mL TSH (0.350-5.500) UIU/ML Free (T4) Reflex I (0.80-1.80) ng/dL Urine Color Urine Appearance (Clear) Urine pH (5.0-8.0) Ur Specific [place] (1.001-1.035) Urine Protein (Negative) Urine Glucose (UA) (Negative) Urine Ketones (Negative) Urine Blood (Negative) Urine Nitrite (Negative) Urine Bilirubin (Negative) Urine Urobilinogen (<2.0) mg/dL Ur Leukocyte Esterase (Negative) Urine RBC (0-5) /hpf Urine WBC (0-5) /hpf Ur Squamous Epith Cells (0-4) /hpf Hyaline Casts (0-2) /lpf Urine Mucus (None) /hpf Urine Osmolality (400-1100) mOsm/kg Ur Random Sodium (40-220) mmol/L 04/02/24 04/02/24 04/02/24 Range/Units 03:11 03:11 17:29 WBC (3.8-10.6) k/uL RBC (3.80-5.40) m/uL Hgb (11.4-16.0) gm/dL Hct (34.0-46.0) % MCV (80.0-100.0) fL MCH (25.0-35.0) pg MCHC (31.0-37.0) g/dL RDW (11.5-15.5) % Plt Count (150-450) k/uL MPV Immature Gran % (Auto) % Absolute Nucleated RBC % Neutrophils % % Lymphocytes % % Monocytes % % Eosinophils % % Basophils % % Immature Gran # (0.00-0.04) X 10*3/uL Neutrophils # (1.3-7.7) k/uL Lymphocytes # (1.0-4.8) k/uL Monocytes # (0-1.0) k/uL Eosinophils # (0-0.7) k/uL Basophils # (0-0.2) k/uL NRBC/100 WBC Diff (0.00-0.01) X 10*3/uL Hypochromasia ESR (0-30) mm/Hr PT (10.0-12.5) sec INR (<1.2) APTT (22.0-30.0) sec D-Dimer (<0.60) mg/L FEU Sodium 137 131 L (137-145) mmol/L Potassium 4.4 (3.5-5.1) mmol/L Chloride 101 (98-107) mmol/L Carbon Dioxide 26.7 (22-30) mmol/L Anion Gap 9.30 mmol/L BUN 17.6 (7-17) mg/dL Creatinine 0.6 (0.52-1.04) mg/dL Est GFR (CKD-EPI) 99 (>=60) Est GFR (CKD-EPI)AfAm (>60 ml/min/1.73 sqM) Est GFR (CKD-EPI)NonAf (>60 ml/min/1.73 sqM) BUN/Creatinine Ratio 29.33 H (12.00-20.00) Ratio Glucose 158 H (74-99) mg/dL Osmolality 281 (275-295) mOsm/kg Plasma Lactic Acid Joel (0.7-2.0) mmol/L Calcium 9.3 (8.4-10.2) mg/dL Phosphorus 2.9 (2.5-4.5) mg/dL Magnesium 1.7 (1.6-2.3) mg/dL Total Bilirubin <0.2 L (0.2-1.3) mg/dL AST 25 (14-36) U/L ALT 19 (4-34) U/L Alkaline Phosphatase 73 (38-126) U/L Troponin I (0.000-0.034) ng/mL C-Reactive Protein (<1.0) mg/dL NT-Pro-B Natriuret Pep pg/mL Total Protein 5.1 L (6.3-8.2) g/dL Albumin 3.3 L (3.5-5.0) g/dL Globulin 1.8 (1.6-3.3) g/dL Albumin/Globulin Ratio 1.83 (1.60-3.17) Ratio Procalcitonin (0.02-0.50) ng/mL TSH (0.350-5.500) UIU/ML Free (T4) Reflex I (0.80-1.80) ng/dL Urine Color Urine Appearance (Clear) Urine pH (5.0-8.0) Ur Specific [place] (1.001-1.035) Urine Protein (Negative) Urine Glucose (UA) (Negative) Urine Ketones (Negative) Urine Blood (Negative) Urine Nitrite (Negative) Urine Bilirubin (Negative) Urine Urobilinogen (<2.0) mg/dL Ur Leukocyte Esterase (Negative) Urine RBC (0-5) /hpf Urine WBC (0-5) /hpf Ur Squamous Epith Cells (0-4) /hpf Hyaline Casts (0-2) /lpf Urine Mucus (None) /hpf Urine Osmolality (400-1100) mOsm/kg Ur Random Sodium (40-220) mmol/L 04/02/24 04/02/24 04/02/24 Range/Units 20:33 20:33 20:33 WBC (3.8-10.6) k/uL RBC (3.80-5.40) m/uL Hgb (11.4-16.0) gm/dL Hct (34.0-46.0) % MCV (80.0-100.0) fL MCH (25.0-35.0) pg MCHC (31.0-37.0) g/dL RDW (11.5-15.5) % Plt Count (150-450) k/uL MPV Immature Gran % (Auto) % Absolute Nucleated RBC % Neutrophils % % Lymphocytes % % Monocytes % % Eosinophils % % Basophils % % Immature Gran # (0.00-0.04) X 10*3/uL Neutrophils # (1.3-7.7) k/uL Lymphocytes # (1.0-4.8) k/uL Monocytes # (0-1.0) k/uL Eosinophils # (0-0.7) k/uL Basophils # (0-0.2) k/uL NRBC/100 WBC Diff (0.00-0.01) X 10*3/uL Hypochromasia ESR (0-30) mm/Hr PT (10.0-12.5) sec INR (<1.2) APTT (22.0-30.0) sec D-Dimer (<0.60) mg/L FEU Sodium (137-145) mmol/L Potassium (3.5-5.1) mmol/L Chloride (98-107) mmol/L Carbon Dioxide (22-30) mmol/L Anion Gap mmol/L BUN (7-17) mg/dL Creatinine (0.52-1.04) mg/dL Est GFR (CKD-EPI) (>=60) Est GFR (CKD-EPI)AfAm (>60 ml/min/1.73 sqM) Est GFR (CKD-EPI)NonAf (>60 ml/min/1.73 sqM) BUN/Creatinine Ratio (12.00-20.00) Ratio Glucose (74-99) mg/dL Osmolality (275-295) mOsm/kg Plasma Lactic Acid Joel (0.7-2.0) mmol/L Calcium (8.4-10.2) mg/dL Phosphorus (2.5-4.5) mg/dL Magnesium (1.6-2.3) mg/dL Total Bilirubin (0.2-1.3) mg/dL AST (14-36) U/L ALT (4-34) U/L Alkaline Phosphatase (38-126) U/L Troponin I (0.000-0.034) ng/mL C-Reactive Protein (<1.0) mg/dL NT-Pro-B Natriuret Pep pg/mL Total Protein (6.3-8.2) g/dL Albumin (3.5-5.0) g/dL Globulin (1.6-3.3) g/dL Albumin/Globulin Ratio (1.60-3.17) Ratio Procalcitonin (0.02-0.50) ng/mL TSH (0.350-5.500) UIU/ML Free (T4) Reflex I (0.80-1.80) ng/dL Urine Color Yellow Urine Appearance Clear (Clear) Urine pH 6.0 (5.0-8.0) Ur Specific [place] 1.021 (1.001-1.035) Urine Protein Negative (Negative) Urine Glucose (UA) Negative (Negative) Urine Ketones Negative (Negative) Urine Blood Negative (Negative) Urine Nitrite Negative (Negative) Urine Bilirubin Negative (Negative) Urine Urobilinogen <2.0 (<2.0) mg/dL Ur Leukocyte Esterase Small H (Negative) Urine RBC <1 (0-5) /hpf Urine WBC 12 H (0-5) /hpf Ur Squamous Epith Cells 3 (0-4) /hpf Hyaline Casts 1 (0-2) /lpf Urine Mucus Rare H (None) /hpf Urine Osmolality 578 (400-1100) mOsm/kg Ur Random Sodium 80 (40-220) mmol/L 04/03/24 04/03/24 04/03/24 Range/Units 03:29 03:29 14:49 WBC 11.97 H (3.8-10.6) k/uL RBC 3.65 L (3.80-5.40) m/uL Hgb 11.4 L (11.4-16.0) gm/dL Hct 35.9 L (34.0-46.0) % MCV 98.4 H (80.0-100.0) fL MCH 31.2 (25.0-35.0) pg MCHC 31.8 L (31.0-37.0) g/dL RDW 13.5 (11.5-15.5) % Plt Count 542 H (150-450) k/uL MPV 8.8 L Immature Gran % (Auto) % Absolute Nucleated RBC 0 % Neutrophils % % Lymphocytes % % Monocytes % % Eosinophils % % Basophils % % Immature Gran # (0.00-0.04) X 10*3/uL Neutrophils # (1.3-7.7) k/uL Lymphocytes # (1.0-4.8) k/uL Monocytes # (0-1.0) k/uL Eosinophils # (0-0.7) k/uL Basophils # (0-0.2) k/uL NRBC/100 WBC Diff 0 (0.00-0.01) X 10*3/uL Hypochromasia ESR 53 H (0-30) mm/Hr PT (10.0-12.5) sec INR (<1.2) APTT (22.0-30.0) sec D-Dimer (<0.60) mg/L FEU Sodium 134 L (137-145) mmol/L Potassium 4.5 (3.5-5.1) mmol/L Chloride 98 (98-107) mmol/L Carbon Dioxide 28.2 (22-30) mmol/L Anion Gap 7.80 mmol/L BUN 11.2 (7-17) mg/dL Creatinine 0.4 L (0.52-1.04) mg/dL Est GFR (CKD-EPI) 109 (>=60) Est GFR (CKD-EPI)AfAm (>60 ml/min/1.73 sqM) Est GFR (CKD-EPI)NonAf (>60 ml/min/1.73 sqM) BUN/Creatinine Ratio 28.00 H (12.00-20.00) Ratio Glucose 128 H (74-99) mg/dL Osmolality (275-295) mOsm/kg Plasma Lactic Acid Joel (0.7-2.0) mmol/L Calcium 9.4 (8.4-10.2) mg/dL Phosphorus (2.5-4.5) mg/dL Magnesium 1.5 (1.6-2.3) mg/dL Total Bilirubin (0.2-1.3) mg/dL AST (14-36) U/L ALT (4-34) U/L Alkaline Phosphatase (38-126) U/L Troponin I (0.000-0.034) ng/mL C-Reactive Protein (<1.0) mg/dL NT-Pro-B Natriuret Pep pg/mL Total Protein (6.3-8.2) g/dL Albumin (3.5-5.0) g/dL Globulin (1.6-3.3) g/dL Albumin/Globulin Ratio (1.60-3.17) Ratio Procalcitonin (0.02-0.50) ng/mL TSH 8.240 H (0.350-5.500) UIU/ML Free (T4) Reflex I 1.31 (0.80-1.80) ng/dL Urine Color Urine Appearance (Clear) Urine pH (5.0-8.0) Ur Specific [place] (1.001-1.035) Urine Protein (Negative) Urine Glucose (UA) (Negative) Urine Ketones (Negative) Urine Blood (Negative) Urine Nitrite (Negative) Urine Bilirubin (Negative) Urine Urobilinogen (<2.0) mg/dL Ur Leukocyte Esterase (Negative) Urine RBC (0-5) /hpf Urine WBC (0-5) /hpf Ur Squamous Epith Cells (0-4) /hpf Hyaline Casts (0-2) /lpf Urine Mucus (None) /hpf Urine Osmolality (400-1100) mOsm/kg Ur Random Sodium (40-220) mmol/L 04/03/24 04/03/24 04/03/24 Range/Units 14:49 14:49 14:49 WBC (3.8-10.6) k/uL RBC (3.80-5.40) m/uL Hgb (11.4-16.0) gm/dL Hct (34.0-46.0) % MCV (80.0-100.0) fL MCH (25.0-35.0) pg MCHC (31.0-37.0) g/dL RDW (11.5-15.5) % Plt Count (150-450) k/uL MPV Immature Gran % (Auto) % Absolute Nucleated RBC % Neutrophils % % Lymphocytes % % Monocytes % % Eosinophils % % Basophils % % Immature Gran # (0.00-0.04) X 10*3/uL Neutrophils # (1.3-7.7) k/uL Lymphocytes # (1.0-4.8) k/uL Monocytes # (0-1.0) k/uL Eosinophils # (0-0.7) k/uL Basophils # (0-0.2) k/uL NRBC/100 WBC Diff (0.00-0.01) X 10*3/uL Hypochromasia ESR (0-30) mm/Hr PT (10.0-12.5) sec INR (<1.2) APTT (22.0-30.0) sec D-Dimer 0.97 H (<0.60) mg/L FEU Sodium (137-145) mmol/L Potassium (3.5-5.1) mmol/L Chloride (98-107) mmol/L Carbon Dioxide (22-30) mmol/L Anion Gap mmol/L BUN (7-17) mg/dL Creatinine (0.52-1.04) mg/dL Est GFR (CKD-EPI) (>=60) Est GFR (CKD-EPI)AfAm (>60 ml/min/1.73 sqM) Est GFR (CKD-EPI)NonAf (>60 ml/min/1.73 sqM) BUN/Creatinine Ratio (12.00-20.00) Ratio Glucose (74-99) mg/dL Osmolality (275-295) mOsm/kg Plasma Lactic Acid Joel (0.7-2.0) mmol/L Calcium (8.4-10.2) mg/dL Phosphorus (2.5-4.5) mg/dL Magnesium (1.6-2.3) mg/dL Total Bilirubin (0.2-1.3) mg/dL AST (14-36) U/L ALT (4-34) U/L Alkaline Phosphatase (38-126) U/L Troponin I (0.000-0.034) ng/mL C-Reactive Protein 1.6 H (<1.0) mg/dL NT-Pro-B Natriuret Pep pg/mL Total Protein (6.3-8.2) g/dL Albumin (3.5-5.0) g/dL Globulin (1.6-3.3) g/dL Albumin/Globulin Ratio (1.60-3.17) Ratio Procalcitonin 0.22 (0.02-0.50) ng/mL TSH (0.350-5.500) UIU/ML Free (T4) Reflex I (0.80-1.80) ng/dL Urine Color Urine Appearance (Clear) Urine pH (5.0-8.0) Ur Specific [place] (1.001-1.035) Urine Protein (Negative) Urine Glucose (UA) (Negative) Urine Ketones (Negative) Urine Blood (Negative) Urine Nitrite (Negative) Urine Bilirubin (Negative) Urine Urobilinogen (<2.0) mg/dL Ur Leukocyte Esterase (Negative) Urine RBC (0-5) /hpf Urine WBC (0-5) /hpf Ur Squamous Epith Cells (0-4) /hpf Hyaline Casts (0-2) /lpf Urine Mucus (None) /hpf Urine Osmolality (400-1100) mOsm/kg Ur Random Sodium (40-220) mmol/L 04/04/24 04/04/24 Range/Units 03:30 03:30 WBC 10.94 H (3.8-10.6) k/uL RBC 3.91 L (3.80-5.40) m/uL Hgb 12.1 (11.4-16.0) gm/dL Hct 37.8 (34.0-46.0) % MCV 96.7 (80.0-100.0) fL MCH 30.9 (25.0-35.0) pg MCHC 32.0 (31.0-37.0) g/dL RDW 13.6 (11.5-15.5) % Plt Count 593 H (150-450) k/uL MPV 8.3 L Immature Gran % (Auto) 4.80 % Absolute Nucleated RBC 0 % Neutrophils % 55.2 % Lymphocytes % 26.5 % Monocytes % 10.1 % Eosinophils % 1.8 % Basophils % 1.6 % Immature Gran # 0.53 H (0.00-0.04) X 10*3/uL Neutrophils # 6.04 (1.3-7.7) k/uL Lymphocytes # 2.90 (1.0-4.8) k/uL Monocytes # 1.10 H (0-1.0) k/uL Eosinophils # 0.20 (0-0.7) k/uL Basophils # 0.17 H (0-0.2) k/uL NRBC/100 WBC Diff 0 (0.00-0.01) X 10*3/uL Hypochromasia ESR (0-30) mm/Hr PT (10.0-12.5) sec INR (<1.2) APTT (22.0-30.0) sec D-Dimer (<0.60) mg/L FEU Sodium 135 (137-145) mmol/L Potassium 4.9 (3.5-5.1) mmol/L Chloride 97 (98-107) mmol/L Carbon Dioxide 30.8 (22-30) mmol/L Anion Gap 7.20 mmol/L BUN 8.7 L (7-17) mg/dL Creatinine 0.5 L (0.52-1.04) mg/dL Est GFR (CKD-EPI) 103 (>=60) Est GFR (CKD-EPI)AfAm (>60 ml/min/1.73 sqM) Est GFR (CKD-EPI)NonAf (>60 ml/min/1.73 sqM) BUN/Creatinine Ratio 17.40 (12.00-20.00) Ratio Glucose 79 (74-99) mg/dL Osmolality (275-295) mOsm/kg Plasma Lactic Acid Joel (0.7-2.0) mmol/L Calcium 9.9 (8.4-10.2) mg/dL Phosphorus (2.5-4.5) mg/dL Magnesium (1.6-2.3) mg/dL Total Bilirubin <0.2 L (0.2-1.3) mg/dL AST 27 (14-36) U/L ALT 24 (4-34) U/L Alkaline Phosphatase 79 (38-126) U/L Troponin I (0.000-0.034) ng/mL C-Reactive Protein (<1.0) mg/dL NT-Pro-B Natriuret Pep pg/mL Total Protein 5.5 L (6.3-8.2) g/dL Albumin 3.6 L (3.5-5.0) g/dL Globulin 1.9 (1.6-3.3) g/dL Albumin/Globulin Ratio 1.89 (1.60-3.17) Ratio Procalcitonin (0.02-0.50) ng/mL TSH (0.350-5.500) UIU/ML Free (T4) Reflex I (0.80-1.80) ng/dL Urine Color Urine Appearance (Clear) Urine pH (5.0-8.0) Ur Specific [place] (1.001-1.035) Urine Protein (Negative) Urine Glucose (UA) (Negative) Urine Ketones (Negative) Urine Blood (Negative) Urine Nitrite (Negative) Urine Bilirubin (Negative) Urine Urobilinogen (<2.0) mg/dL Ur Leukocyte Esterase (Negative) Urine RBC (0-5) /hpf Urine WBC (0-5) /hpf Ur Squamous Epith Cells (0-4) /hpf Hyaline Casts (0-2) /lpf Urine Mucus (None) /hpf Urine Osmolality (400-1100) mOsm/kg Ur Random Sodium (40-220) mmol/L - NIH Stroke Scale 1a. Level of Consciousness: (0) alert 1b. LOC Questions: (0) answers correctly 1c. LOC Commands: (0) performs tasks correctly 2. Best Gaze: (0) normal 3. Visual: (0) no visual loss 4. Facial Palsy: (0) normal symmetrical movement 5a. Motor Arm Left: (0) no drift 5b. Motor Arm Right: (0) no drift 6a. Motor Leg Left: (0) no drift 6b. Motor Leg Right: (0) no drift 7. Limb Ataxia: (0) absent 8. Sensory: (0) normal 9. Best Language: (0) no aphasia 10. Dysarthria: (0) normal 11. Extinction/Inattention: (0) no abnormality - Thrombolytic Inclusion/Exclusion Thrombolytic Exclusion Criteria: Symptom Onset > 4.5 Hours - Medical Decision Making 68 female to ER with blurry vision dizziness and weakness this is a persistent recurring issue for this patient in the last month she has 5 ER visits, patient is found to be again hyponatremic 126 and will admit for further supportive care - Radiology Data Radiology results: report reviewed (CT brain and chest x-ray are negative for acute disease), image reviewed - EKG Data -: EKG Interpreted by Me (EKG is sinus bradycardia 58 W[place] 174 QRS 122 QTc 402) Past Medical History Past Medical History: Asthma, Heart Failure, COPD, Fibromyalgia, GERD/Reflux, Hypertension, Osteoarthritis (OA), Pneumonia, Pulmonary Embolus (PE), Skin Disorder, Thyroid Disorder Additional Past Medical History / Comment(s): Spinal Stenosis, Cervical disc disease/stenosis, scoliosis, recently having numbness/tingling L side of face/neck, recently saw clinical research monitor for L hemidiaphragmatic elevation-pt states she was told this was probably genetic, recently bronchitis and past bronchitis, pt states recent med change (water pill) d/t electrolyte problem/kidney function being affected, pt states she has had pulmonary emboli, past bilateral lower extremity cellulitis, edema lower extremities, IBS, hemorrhoids, benign colon polyps, sinus problems, UTIs, bacteremia/sepsis, cardiac murmur, past L ankle and L wrist fractures. History of Any Multi-Drug Resistant Organisms: None Reported Past Surgical History: Bariatric Surgery, Section, Cholecystectomy, Hysterectomy, Tonsillectomy Additional Past Surgical History / Comment(s): EGD, colonoscopies, gastric bypass, surgery for deviated septum, left cataract removal (having laser procedure on that eye 11/24/23) Past Anesthesia/Blood Transfusion Reactions: Previous Problems w/ Anesthesia Additional Past Anesthesia/Blood Transfusion Reaction / Comment(s): itching after hysterectomy, some kind of breathing problem after gastric bypass-not sure what happened Past Psychological History: Anxiety, Bipolar, Depression, Panic Disorder Smoking Status: Current every day smoker Past Alcohol Use History: None Reported Past Drug Use History: Marijuana - Past Family History Mother Family Medical History: Congestive Heart Failure (CHF), Hypertension Father History Unknown: Yes Additional Family Medical History / Comment(s): Father at the age of 45 yrs d/t having had rheumatic fever as a child and heart valve disease. Course Vital Signs 04/01/24 04/01/24 04/01/24 16:06 18:08 19:51 Temperature 98.2 F Pulse Rate 69 59 L 65 Respiratory 16 18 18 Rate Blood Pressure 138/66 143/74 102/62 O2 Sat by Pulse 95 89 L 95 Oximetry - Reevaluation(s) Reevaluation #1: 04/01/24 17:52 Records reviewed Reevaluation #2: 04/01/24 17:52 Symptoms unchanged Reevaluation #3: 04/01/24 17:52 Patient informed of results and questions answered Reevaluation #4: Was pt. sent in by a medical professional or institution (, [place], [employer], urgent care, hospital, or half-way...) When possible be specific @ -no Did you speak to anyone other than the patient for history (EMS, parent, family, police, friend...)? What history was obtained from this source @ -no Did you review nursing and triage notes (agree or disagree)? Why? @ -agree Are old charts reviewed (outside hosp., previous admission, EMS record, old EKG, old radiological studies, urgent care reports/EKG's, half-way records)? Report findings @ -yes Differential Diagnosis (chest pain, altered mental status, abdominal pain women, abdominal pain men, vaginal bleeding, weakness, fever, dyspnea, syncope, headache, dizziness, GI bleed, back pain, seizure, CVA, palpatations, mental health, musculoskeletal)? @ -prior EKG interpreted by me (3pts min.). @ -yes X-rays interpreted by me (1pt min.). @ -yes negative for acute disease CT interpreted by me (1pt min.). @ -yes negative for acute disease U/S interpreted by me (1pt. min.). @ -no What testing was considered but not performed or refused? (CT, X-rays, U/S, labs)? Why? @ -none What meds were considered but not given or refused? Why? @ -none Did you discuss the management of the patient with other professionals (professionals i.e. , PA, [employer], lab, RT, psych nurse, social services manager, yoke presser, teacher, business practices officer, mental health case manager)? Give summary @ -no Was smoking cessation discussed for >3mins.? @ -no Was critical care preformed (if so, how long)? @ -no Were there social determinants of health that impacted care today? How? (Homelessness, low income, unemployed, alcoholism, drug addiction, transportatio n, low edu. Level, literacy, decrease access to med. care, fdc, rehab)? @ -none Was there de-escalation of care discussed even if they declined (Discuss DNR or withdrawal of care, Hospice)? DNR status @ -no What co-morbidities impacted this encounter? (DM, HTN, Smoking, COPD, CAD, Cancer, CVA, ARF, Chemo, Hep., AIDS, mental health diagnosis, sleep apnea, morbid obesity)? @ -none Was patient admitted / discharged? Hospital course, mention meds given and route, prescriptions, significant lab abnormalities, going to OR and other pertinent info. @ - 68 female to ER with blurry vision dizziness and weakness this is a persistent recurring issue for this patient in the last month she has 5 ER visits, patient is found to be again hyponatremic 126 and will admit for further supportive care Admitted Undiagnosed new problem with uncertain prognosis? @ -no Drug Therapy requiring intensive monitoring for toxicity (Heparin, Nitro, Insulin, Cardizem)? @ -no Were any procedures done? @ -no Diagnosis/symptom? @ -Hyponatremia Acute, or Chronic, or Acute on Chronic? @ -Acute Uncomplicated (without systemic symptoms) or Complicated (systemic symptoms)? @ -Complicated Side effects of treatment? @ -no Exacerbation, Progression, or Severe Exacerbation? @ -exacerbation Poses a threat to life or bodily function? How? (Chest pain, USA, OR, pneumonia, PE, COPD, DKA, ARF, appy, cholecystitis, CVA, Diverticulitis, Homicidal, Suicidal, threat to staff... and all critical care pts) @ -yes Reevaluation #5: Differential Weakness: Hypoglycemia, shock, sepsis, hyponatremia, anemia, infection, OR, ETOH, adverse medicine reaction, overdose, stroke, this is not meant to be an all-inclusive list. - Consultations Consultation #1: Spoke with [facility] who agrees to admit this patient Critical Care Time Critical Care Time: Yes Total Critical Care Time: 31 Disposition Clinical Impression: Hyponatremia, Dizziness, Weakness Disposition: ADMITTED IP TO THIS HOSP Condition: Fair Is patient prescribed a controlled substance at d/c from ED?: No Time of Disposition: 17:50
[2024-04-01] MEDS: SODIUM CHLORIDE 0.9% 1,000 ML IV STA (17:04)
[2024-04-01 17:08] LABS: Basophils # (A) 0.1 k/uL (0-0.2); Basophils % (A) 1 %; Eosinophils # (A) 0.3 k/uL (0-0.7); Eosinophils % (A) 2 %; HCT 35.9 % (34.0-46.0); HGB 11.4 gm/dL (11.4-16.0); Hypochromasia Slight; Lymphocytes % (A) 16 %; MCH 31.1 pg (25.0-35.0); MCHC 31.8 g/dL (31.0-37.0); MCV 97.8 fL (80.0-100.0); Mean Platelet Volume 6.8; Monocytes # (A) 0.9 k/uL (0-1.0); Monocytes % (A) 7 %; Neutrophils # (A) 9.1 k/uL (1.3-7.7); Neutrophils % (A) 72 %; Platelet Count 561 k/uL (150-450); RBC 3.67 m/uL (3.80-5.40); RDW 13.6 % (11.5-15.5); WBC 12.6 k/uL (3.8-10.6)
[2024-04-01 17:19] LABS: Sodium 126 mmol/L (137-145)
[2024-04-01 17:20] LABS: ALT 23 U/L (4-34); AST 40 U/L (14-36); African American GFR (CKD) 81 (>60 ml/min/1.73 sqM); Albumin 3.7 g/dL (3.5-5.0); Alkaline Phosphatase 69 U/L (38-126); Anion Gap 9 mmol/L; Blood Urea Nitrogen 29 mg/dL (7-17); Calcium 10.1 mg/dL (8.4-10.2); Carbon Dioxide 31 mmol/L (22-30); Chloride 86 mmol/L (98-107); Glucose 80 mg/dL (74-99); Magnesium 1.9 mg/dL (1.6-2.3); Non-African American GFR(CKD) 70 (>60 ml/min/1.73 sqM); Phosphorus 3.8 mg/dL (2.5-4.5); Total Bilirubin 0.6 mg/dL (0.2-1.3)
--- NOTE | 2024-04-01 17:23 | CT ---
EXAMINATION TYPE: CT brain wo con DATE OF EXAM: 04/01/2024 COMPARISON: 03/24/2024 HISTORY: 68-year-old female with Weakness. TECHNIQUE: Examination was done in axial plane without intravenous contrast. Coronal and sagittal r econstructions performed. CT DLP: 1139.4 mGycm Automated exposure control for dose reduction was used. FINDINGS: There is no evidence of acute intracranial hemorrhage, acute ischemic changes, mass, mass-effect, or extra-axial fluid collection. There is no effacement of cerebral sulci or basal subarachnoid cister ns. There is no hydrocephalus. There is no midline shift. Saul-white matter distinction is preserv ed. There is mild to moderate generalized supratentorial volume loss. Secondary mild prominence to the ve ntricular system, unchanged from prior. Atherosclerotic calcifications in the carotid siphons. Paranasal sinuses and mastoid air cells are well pneumatized. The globes are intact. IMPRESSION: Ventricular prominence likely due to central cerebral atrophy, unchanged. No acute intracranial abnor mality seen. [facility], , 04/01/2024 5:21 PM
[2024-04-01 17:25] LABS: Prothrombin Time 10.9 sec (10.0-12.5)
[2024-04-01 17:27] LABS: NT-Pro-B-Type Natriuretic Pept 1590 pg/mL
[2024-04-01 17:38] LABS: Potassium 5.1 mmol/L (3.5-5.1)
[2024-04-01] MEDS ORDERED: NALOXONE 0.4 MG/ML 1 ML VIAL IV PRN (17:48)
[2024-04-01] MEDS ORDERED: ONDANSETRON 4 MG/2 ML VIAL IVP PRN (17:48)
[2024-04-01] MEDS: MORPHINE SULFATE 2 MG/ML SYRINGE IV PRN (18:23)
[2024-04-01] MEDS: SODIUM CHLORIDE 0.9% 1,000 ML IV SCH (18:29)
[2024-04-01] MEDS ORDERED: ALBUTEROL NEBULIZED 2.5 MG/3 ML INHALATION PRN (22:14)
[2024-04-01] MEDS ORDERED: ALBUTEROL HFA INHALER INHALATION PRN (22:14)
[2024-04-01] MEDS ORDERED: IPRATROPIUM-ALBUTEROL 3 ML NEB INHALATION PRN (22:14)
[2024-04-02] MEDS: LEVOTHYROXINE 75 MCG TAB PO SCH (06:14)
[2024-04-02] MEDS: SYMBICORT 160-4.5 MCG INHALER INHALATION SCH (08:36)
[2024-04-02] MEDS: VENLAFAXINE HCL ER 150 MG CAP PO SCH (09:02)
[2024-04-02] MEDS: lamoTRIgine 100 MG TAB PO SCH (09:02)
[2024-04-02] MEDS: PYRIDOXINE 50 MG TAB PO SCH (09:03)
[2024-04-02] MEDS: FERROUS SULFATE 325 MG TAB PO SCH (09:04)
[2024-04-02] MEDS: hydrOXYzine HCL 25 MG TAB PO SCH (09:04)
[2024-04-02] MEDS: FAMOTIDINE 20 MG TAB PO SCH (09:05)
[2024-04-02] MEDS: amLODIPine 5 MG TAB PO SCH (09:05)
[2024-04-02 09:33] LABS: Basophils % (A) 1.4 %; HCT 35.1 % (37.2-46.3); HGB 10.9 g/dL (12.0-15.0); Lymphocytes # (A) 2.92 X 10*3/uL (0.90-5.00); Lymphocytes % (A) 19.9 %; MCH 30.9 pg (27.0-32.0); MCHC 31.1 g/dL (32.0-37.0); MCV 99.4 FL (80.0-97.0); Monocytes % (A) 10.2 %; NRBC Per 100 WBC 0 X 10*3/uL (0.00-0.01); Neutrophils # (A) 9.08 X 10*3/uL (1.80-7.70); Neutrophils % (A) 61.8 %; Platelet Count 467 X 10*3/uL (140-440); RBC 3.53 X 10*6/uL (4.10-5.20); RDW 13.7 % (11.5-14.5); WBC 14.69 X 10*3/uL (4.50-10.00)
--- NOTE | 2024-04-02 10:44 | P.HPIM ---
History of Present Illness Patient is a 68-year-old female, poor historian came in with complaints of blurry vision without any other focal deficits. Patient's bloody vision resolved patient does not have any other numbness tingling. Patient does have generalized weakness had a fall about a week ago with a laceration and stitches patient is also complaining of hip pain which has been there and asking for pain medications. Patient is found to be hyponatremic with a positive orthostatic vitals patient is admitted for possible dehydration and hyponatremia. Patient had a CT of the head which did not show any significant abnormality. Patient serum sodium on admission is 127. REVIEW OF SYSTEMS: All other systems are negative except those mentioned in the HPI PHYSICAL EXAMINATION: GENERAL: The patient is alert and oriented x3, not in any acute distress. Well developed, well nourished. HEENT: Pupils are round and equally reacting to light. EOMI. No scleral icterus. No conjunctival pallor. Normocephalic, atraumatic. No pharyngeal erythema. No thyromegaly. CARDIOVASCULAR: S1 and S2 present. No murmurs, rubs, or gallops. PULMONARY: Chest is clear to auscultation, no wheezing or crackles. ABDOMEN: Soft, nontender, nondistended, normoactive bowel sounds. No palpable organomegaly. MUSCULOSKELETAL: No joint swelling or deformity. EXTREMITIES: No cyanosis, clubbing, or pedal edema. NEUROLOGICAL: Gross neurological examination did not reveal any focal deficits. SKIN: Laceration on the right [place]ogan area Assessment and plan -Hyponatremia hypovolemic hyponatremia may be hypovolemia is contributing to her blurry vision low possibility of stroke. Patient is having IV fluids repeat BMP tomorrow possibility of discharge tomorrow after PT and OT evaluation -Generalized weakness physical therapy Occupational Therapy evaluation COPD without any acute exacerbation -Gastroesophageal reflux disease -Hypertension for which patient is on Norvasc which will be continued -History of PE in the past not on any anticoagulation at this time -Hypothyroidism continue with levothyroxine will obtain a TSH level -Chronic back pain history of cervical stenosis. 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 History of Any Multi-Drug Resistant Organisms: None Reported Past Surgical History: Bariatric Surgery, Section, Cholecystectomy, Hysterectomy, Tonsillectomy Additional Past Surgical History / Comment(s): EGD, colonoscopies, gastric bypass, surgery for deviated septum, left cataract removal (having laser procedure on that eye 11/24/23) Past Anesthesia/Blood Transfusion Reactions: Previous Problems w/ Anesthesia Additional Past Anesthesia/Blood Transfusion Reaction / Comment(s): itching after hysterectomy, some kind of breathing problem after gastric bypass-not sure what happened Past Psychological History: Anxiety, Bipolar, Depression, Panic Disorder Additional Psychological History / Comment(s): . Smoking Status: Current every day smoker Past Alcohol Use History: None Reported Additional Past Alcohol Use History / Comment(s): Pt started smoking in 1986 and quit when she went into [facility] 08/2021, started again after discharge from [facility] 05/2022 Past Drug Use History: Marijuana Additional Drug Use History / Comment(s): occassional cannabis use per pt - Past Family History Mother Family Medical History: Congestive Heart Failure (CHF), Hypertension Father History Unknown: Yes Additional Family Medical History / Comment(s): Father at the age of 45 yrs d/t having had rheumatic fever as a child and heart valve disease. Medications and Allergies Home Medications Medication Instructions Recorded Confirmed Type Montelukast [Singulair] 10 mg PO HS 12/17/13 04/01/24 History Levothyroxine Sodium [Synthroid] 150 mcg PO DAILY 03/29/20 04/01/24 History Budesonide/Formoterol Fumarate 2 puff INHALATION RT-BID 06/12/21 04/01/24 History [Symbicort 160-4.5 Mcg Inhaler] Famotidine [Pepcid] 20 mg PO BID 09/03/21 04/01/24 History Tamsulosin [Flomax] 0.4 mg PO DAILY@1200 10/26/21 04/01/24 History Ferrous Sulfate [Iron (65 MG 325 mg PO DAILY 11/13/22 04/01/24 History Elemental)] Ipratropium-Albuterol Nebulize 3 ml INHALATION RT-QID PRN 11/13/22 04/01/24 History [Duoneb 0.5 mg-3 mg/3 ml Soln] Thiamine [Vitamin B-1] 100 mg PO DAILY@1700 11/13/22 04/01/24 History Albuterol Inhaler [Ventolin Hfa 2 puff INHALATION RT-QID PRN #1 11/17/22 04/01/24 Rx Inhaler] each Ibandronate Sodium [Boniva] 150 mg PO Q30D 05/03/23 04/01/24 History Melatonin 5 mg PO HS PRN 05/03/23 04/01/24 History Acetaminophen [Tylenol Arthritis] 650 mg PO Q4HR PRN 10/24/23 04/01/24 History amLODIPine [Norvasc] 5 mg PO DAILY 12/12/23 04/01/24 History clonazePAM [KlonoPIN ODT] 0.25 mg PO HS 12/12/23 04/01/24 History OLANZapine [ZyPREXA] 15 mg PO HS 01/22/24 04/01/24 History Albuterol Nebulized [Ventolin 5 mg INHALATION RT-QID PRN #60 each 01/24/24 04/01/24 Rx Nebulized] HYDROcodone/APAP 5-325MG [[place] 1 tab PO Q6HR PRN 3 Days #12 tab 03/15/24 04/01/24 Rx 5-325] Folic Acid 1 mg PO DAILY@1700 03/18/24 04/01/24 History Venlafaxine HCl ER [Effexor XR] 150 mg PO DAILY 03/18/24 04/01/24 History hydrOXYzine HCL [Atarax] 25 mg PO BID 03/18/24 04/01/24 History lamoTRIgine [LaMICtal] 150 mg PO BID 03/18/24 04/01/24 History Divalproex ER [Depakote ER] 500 mg PO HS #60 tab 03/28/24 04/01/24 Rx Pyridoxine [Vitamin B-6] 50 mg PO DAILY #30 tab 03/28/24 04/01/24 Rx Allergies Allergy/AdvReac Type Severity Reaction Status Date / Time codeine Allergy Unknown Verified 04/01/24 18:35 Childhood Penicillins Allergy Rash/Hives Verified 04/01/24 18:35 Sulfa (Sulfonamide Allergy Rash/Hives Verified 04/01/24 18:35 Antibiotics) Physical Exam Vitals: Vital Signs Temp Pulse Pulse Resp BP BP Pulse Ox 04/02/24 07:00 98.7 F 73 17 160/64 96 04/02/24 02:09 98.4 F 62 19 163/67 94 L 04/01/24 20:44 98.5 F 58 L 18 115/60 95 04/01/24 19:51 65 18 102/62 95 04/01/24 18:08 59 L 18 143/74 89 L 04/01/24 16:06 98.2 F 69 16 138/66 95 Intake and Output 04/01/24 04/02/24 04/02/24 22:59 06:59 14:59 Output Total 1250 Balance -1250 Output: Urine 1250 Other: Voiding Method External Catheter External Catheter Weight 72.121 kg Results CBC & Chem 7: 04/02/24 03:11 04/01/24 16:46 Labs: Abnormal Lab Results - Last 24 Hours (Table) 04/01/24 04/01/24 04/02/24 Range/Units 16:46 16:46 03:11 WBC 12.6 H 14.69 H (3.8-10.6) k/uL RBC 3.67 L 3.53 L (3.80-5.40) m/uL Hgb 10.9 L (12.0-15.0) g/dL Hct 35.1 L (37.2-46.3) % MCV 99.4 H (80.0-97.0) FL MCHC 31.1 L (32.0-37.0) g/dL Plt Count 561 H 467 H (150-450) k/uL MPV 9.0 L (9.5-12.2) FL Immature Gran # 0.69 H (0.00-0.04) X 10*3/uL Neutrophils # 9.1 H 9.08 H (1.3-7.7) k/uL Monocytes # 1.50 H (0.20-1.00) X 10*3/uL Basophils # 0.20 H (0.00-0.10) X 10*3/uL Sodium 126 L (137-145) mmol/L Chloride 86 L (98-107) mmol/L Carbon Dioxide 31 H (22-30) mmol/L BUN 29 H (7-17) mg/dL AST 40 H (14-36) U/L Total Protein 6.0 L (6.3-8.2) g/dL Thrombosis Risk Factor Assmnt - Choose All That Apply Any of the Below Risk Factors Present?: Yes Each Factor Represents 1 point: Obesity (BMI >25) Other Risk Factors: Yes Each Risk Factor Represents 2 Points: Age 61-74 years Each Risk Factor Represents 3 Points: History of DVT/PE Other congenital or acquired thrombophilia - If yes, enter type in comment: No Thrombosis Risk Factor Assessment Total Risk Factor Score: 6 Thrombosis Risk Factor Assessment Level: High Risk
--- NOTE | 2024-04-02 11:09 | P.NPCON ---
History of Present Illness - Reason for Consult hyponatremia - History of Present Illness Reason for consultation: Hyponatremia History of present illness: Patient is a 68-year-old female seen in renal consultation for hyponatremia. Patient sodium level on admission was 126. Patient came to the hospital due to vision changes. Patient states she developed vision changes starting on and first noticed it when she was on her computer. Patient states she could not identify the mouse cursor and had to ask her for help. She then also noticed ants and spiders on her claros. Patient states she is on multiple psychiatry medications including Effexor and Depakote. She does admit to drinking 6 regular cans of Diet Coke daily along with 4 cups of coffee daily. She denies drinking much water. She does admit to taking NSAIDs on a daily basis for chronic pain. She denies personal history of malignancy. Denies use of diuretics. Denies chest pain or shortness of breath. No gross hematuria or dysuria. Denies history of kidney disease. Vital signs are stable. General: No acute distress. HEENT: Head exam is unremarkable. LUNGS: No audible rhonchi or wheezes. HEART: Rate and Rhythm are regular. ABDOMEN: Nontender. EXTREMITITES: No edema. Past Medical History Past Medical History: Asthma, Heart Failure, COPD, Fibromyalgia, GERD/Reflux, Hypertension, Osteoarthritis (OA), Pneumonia, Pulmonary Embolus (PE), Skin Disorder, Thyroid Disorder Additional Past Medical History / Comment(s): Spinal Stenosis, Cervical disc disease/stenosis, scoliosis, recently having numbness/tingling L side of face/neck, recently saw bakery machine mechanic for L hemidiaphragmatic elevation-pt states she was told this was probably genetic, recently bronchitis and past bronchitis, pt states recent med change (water pill) d/t electrolyte p roblem/kidney function being affected, pt states she has had pulmonary emboli, past bilateral lower extremity cellulitis, edema lower extremities, IBS, hemorrhoids, benign colon polyps, sinus problems, UTIs, bacteremia/sepsis, cardiac murmur, past L ankle and L wrist fractures. History of Any Multi-Drug Resistant Organisms: None Reported Past Surgical History: Bariatric Surgery, Section, Cholecystectomy, Hysterectomy, Tonsillectomy Additional Past Surgical History / Comment(s): EGD, colonoscopies, gastric bypas s, surgery for deviated septum, left cataract removal (having laser procedure on that eye 11/24/23) Past Anesthesia/Blood Transfusion Reactions: Previous Problems w/ Anesthesia Additional Past Anesthesia/Blood Transfusion Reaction / Comment(s): itching after hysterectomy, some kind of breathing problem after gastric bypass-not sure what happened Past Psychological History: Anxiety, Bipolar, Depression, Panic Disorder Additional Psychological History / Comment(s): . Smoking Status: Current every day smoker Past Alcohol Use History: None Reported Additional Past Alcohol Use History / Comment(s): Pt started smoking in 1986 and quit when she went into [facility] 08/2021, started again after discharge from [facility] 05/2022 Past Drug Use History: Marijuana Additional Drug Use History / Comment(s): occassional cannabis use per pt - Past Family History Mother Family Medical History: Congestive Heart Failure (CHF), Hypertension Father History Unknown: Yes Additional Family Medical History / Comment(s): Father at the age of 45 yrs d/t having had rheumatic fever as a child and heart valve disease. Medications and Allergies Home Medications Medication Instructions Recorded Confirmed Type Montelukast [Singulair] 10 mg PO HS 12/17/13 04/01/24 History Levothyroxine Sodium [Synthroid] 150 mcg PO DAILY 03/29/20 04/01/24 History Budesonide/Formoterol Fumarate 2 puff INHALATION RT-BID 06/12/21 04/01/24 His tory [Symbicort 160-4.5 Mcg Inhaler] Famotidine [Pepcid] 20 mg PO BID 09/03/21 04/01/24 History Tamsulosin [Flomax] 0.4 mg PO DAILY@1200 10/26/21 04/01/24 History Ferrous Sulfate [Iron (65 MG 325 mg PO DAILY 11/13/22 04/01/24 History Elemental)] Ipratropium-Albuterol Nebulize 3 ml INHALATION RT-QID PRN 11/13/22 04/01/24 History [Duoneb 0.5 mg-3 mg/3 ml Soln] Thiamine [Vitamin B-1] 100 mg PO DAILY@1700 11/13/22 04/01/24 History Albuterol Inhaler [Ventolin Hfa 2 puff INHALATION RT-QID PRN #1 11/17/22 04/01/24 Rx Inhaler] each Ibandronate Sodium [Boniva] 150 mg PO Q30D 05/03/23 04/01/24 History Melatonin 5 mg PO HS PRN 05/03/23 04/01/24 History Acetaminophen [Tylenol Arthritis] 650 mg PO Q4HR PRN 10/24/23 04/01/24 History amLODIPine [Norvasc] 5 mg PO DAILY 12/12/23 04/01/24 History clonazePAM [KlonoPIN ODT] 0.25 mg PO HS 12/12/23 04/01/24 History OLANZapine [ZyPREXA] 15 mg PO HS 01/22/24 04/01/24 History Albuterol Nebulized [Ventolin 5 mg INHALATION RT-QID PRN #60 each 01/24/24 04/01/24 Rx Nebulized] HYDROcodone/APAP 5-325MG [[place] 1 tab PO Q6HR PRN 3 Days #12 tab 03/15/24 04/01/24 Rx 5-325] Folic Acid 1 mg PO DAILY@1700 03/18/24 04/01/24 History Venlafaxine HCl ER [Effexor XR] 150 mg PO DAILY 03/18/24 04/01/24 History hydrOXYzine HCL [Atarax] 25 mg PO BID 03/18/24 04/01/24 History lamoTRIgine [LaMICtal] 150 mg PO BID 03/18/24 04/01/24 History Divalproex ER [Depakote ER] 500 mg PO HS #60 tab 03/28/24 04/01/24 Rx Pyridoxine [Vitamin B-6] 50 mg PO DAILY #30 tab 03/28/24 04/01/24 Rx Allergies Allergy/AdvReac Type Severity Reaction Status Date / Time codeine Allergy Unknown Verified 04/01/24 18:35 Childhood Penicillins Allergy Rash/Hives Verified 04/01/24 18:35 Sulfa (Sulfonamide Allergy Rash/Hives Verified 04/01/24 18:35 Antibiotics) Physical Exam Vitals: Vital Signs Temp Pulse Pulse Resp BP BP Pulse Ox 04/02/24 07:00 98.7 F 73 17 160/64 96 04/02/24 02:09 98.4 F 62 19 163/67 94 L 04/01/24 20:44 98.5 F 58 L 18 115/60 95 04/01/24 19:51 65 18 102/62 95 04/01/24 18:08 59 L 18 143/74 89 L 04/01/24 16:06 98.2 F 69 16 138/66 95 Intake and Output 04/01/24 04/02/24 04/02/24 22:59 06:59 14:59 Output Total 1250 Balance -1250 Output: Urine 1250 Other: Voiding Method External Catheter External Catheter Weight 72.121 kg Results - Lab Results Most recent lab results Calcium 10.1 mg/dL (8.4-10.2) 04/01/24 16:46 Phosphorus 3.8 mg/dL (2.5-4.5) 04/01/24 16:46 Magnesium 1.9 mg/dL (1.6-2.3) 04/01/24 16:46 04/02/24 03:11 04/01/24 16:46 Assessment and Plan Plan: Assessment: 1. Acute on chronic hyponatremia. Appears euvolemic. On Effexor and Depakote which can induce hyponatremia. Also component of excess fluid intake. Sodium level 126 on admission. Currently on normal saline. 2. Generalized weakness with vision changes. Brain CT negative. 3. Hypothyroidism maintained on levothyroxine. 4. History of bipolar disorder and depression. 5. Benign hypertension. Plan: Decrease rate of normal saline to 50 cc an hour. Add 1500 cc fluid restriction. Check serum and urine osmolality and urine sodium level. Check TSH. Encouraged oral intake. Morning labs pending. Thank you for the consultation. I will continue to follow the patient with you during her hospital stay.
[2024-04-02 11:20] LABS: ALT 19 U/L (8-44); AST 25 U/L (13-35); Albumin 3.3 g/dL (3.8-4.9); Albumin/Globulin Ratio 1.83 Ratio (1.60-3.17); Alkaline Phosphatase 73 U/L (41-126); BUN/Creat Ratio 29.33 Ratio (12.00-20.00); Blood Urea Nitrogen 17.6 mg/dL (9.0-27.0); Calcium 9.3 mg/dL (8.7-10.3); Carbon Dioxide 26.7 mmol/L (21.6-31.8); Chloride 101 mmol/L (96-109); Globulin 1.8 g/dL (1.6-3.3); Glucose 158 mg/dL (70-110); Magnesium 1.7 mg/dL (1.5-2.4); Phosphorus 2.9 mg/dL (2.4-5.1); Potassium 4.4 mmol/L (3.5-5.5); Sodium 137 mmol/L (135-145); Total Bilirubin <0.2 mg/dL (0.3-1.2); Total Protein 5.1 g/dL (6.2-8.2)
[2024-04-02] MEDS: TAMSULOSIN 0.4 MG CAP.ER.24H PO SCH (11:31)
[2024-04-02] MEDS: HYDROcodone/APAP 5-325MG 1 EACH TAB PO PRN (12:55)
--- NOTE | 2024-04-02 12:57 | XR ---
EXAMINATION TYPE: XR chest 2V DATE OF EXAM: 04/02/2024 COMPARISON: 03/24/2024 HISTORY: 68-year-old female pneumonia, cough TECHNIQUE: Frontal and lateral views FINDINGS: Elevated hemidiaphragms partially secures the heart margins. Heart appears enlarged. Interstitial den sity is present. There are patchy bibasilar opacities. Suggestion of trace effusions on the lateral v iew. Asymmetric greater elevation left hemidiaphragm. IMPRESSION: Ongoing patchy lower lung opacities and trace pleural effusions. Limited, rotated exam. [facility], , 04/02/2024 12:55 PM
[2024-04-02] MEDS: SODIUM CHLORIDE 0.45% 1,000 ML IV SCH (14:19)
[2024-04-02] MEDS: FOLIC ACID 1 MG TAB PO SCH (16:00)
[2024-04-02] MEDS: THIAMINE 100 MG TAB PO SCH (16:00)
[2024-04-02] MEDS: OLANZapine 7.5 MG TAB PO SCH (20:36)
[2024-04-02] MEDS: MONTELUKAST 10 MG TAB PO SCH (20:36)
[2024-04-02] MEDS: DIVALPROEX ER 500 MG TAB.ER.24H PO SCH (20:36)
[2024-04-02 20:47] LABS: Appearance,Urine Clear (Clear); Bilirubin,Urine Negative (Negative); Blood,Urine Negative (Negative); Color,Urine Yellow; Glucose,Urine (UA) Negative (Negative); Hyaline Casts,Urine 1 /lpf (0-2); Ketones,Urine Negative (Negative); Leukocyte Esterase,Urine Small (Negative); Mucus,Urine Rare /hpf; Nitrite,Urine Negative (Negative); Protein,Urine Negative (Negative); RBC,Urine <1 /hpf (0-5); Specific Gravity,Urine 1.021 (1.001-1.035); Squamous Epithelial Cell,Urine 3 /hpf (0-4); Urobilinogen,Urine <2.0 mg/dL (<2.0); WBC,Urine 12 /hpf (0-5)
[2024-04-02] MEDS: MELATONIN 5 MG TABLET PO PRN (20:48)
[2024-04-02] MEDS ORDERED: clonazePAM 0.5 MG TAB PO SCH (21:00)
[2024-04-03] MEDS: clonazePAM 0.5 MG TAB PO PRN (03:35)
[2024-04-03] MEDS: ENOXAPARIN 40 MG/0.4 ML SYRINGE SQ SCH (08:07)
[2024-04-03 08:44] LABS: HCT 35.9 % (37.2-46.3); HGB 11.4 g/dL (12.0-15.0); MCH 31.2 pg (27.0-32.0); MCHC 31.8 g/dL (32.0-37.0); MCV 98.4 FL (80.0-97.0); Mean Platelet Volume 8.8 FL (9.5-12.2); NRBC Per 100 WBC 0 X 10*3/uL (0.00-0.01); Platelet Count 542 X 10*3/uL (140-440); RBC 3.65 X 10*6/uL (4.10-5.20); RDW 13.5 % (11.5-14.5); WBC 11.97 X 10*3/uL (4.50-10.00)
[2024-04-03 09:10] LABS: Blood Urea Nitrogen 11.2 mg/dL (9.0-27.0); Calcium 9.4 mg/dL (8.7-10.3); Carbon Dioxide 28.2 mmol/L (21.6-31.8); Chloride 98 mmol/L (96-109); Glucose 128 mg/dL (70-110); Magnesium 1.5 mg/dL (1.5-2.4); Potassium 4.5 mmol/L (3.5-5.5); Sodium 134 mmol/L (135-145)
[2024-04-03] MEDS: MORPHINE SULFATE 2 MG/ML SYRINGE IVP PRN (12:38)
--- NOTE | 2024-04-03 14:49 | P.CNPUL ---
History of Present Illness Consult date: 04/03/24 Requesting physician: Andrzej Wheeler Reason for consult: pneumonia, abnormal CXR/CT Chief complaint: Possible pneumonia. History of present illness: Pulmonary consult dated April 03, 2024. 68-year-old female who was seen in the emergency department, on April 01. She apparently came there because of blurred vision. She apparently was having double vision, and she states that she was told that she should go to the emergency room, to have it evaluated. We are consulted, because a chest x-ray shows some patchy infiltrates, and there was concern for pneumonia. I asked the patient specifically if she was having any lung issues, and she said no. She denied any shortness of breath, cough, wheezing, chest tightness, or phlegm production. She is on 3 L of oxygen, because of her underlying COPD. She does have a history of COPD, asthma, heart failure, fibromyalgia, GERD, hypertension, pulmonary embolism, and hypothyroidism, among other things. Current laboratory data includes a white count of 11.9, hemoglobin 11.4, hematocrit 35.9, and a platelet count of 542,000. Sodium 134, potassium 4.5, chlorides 98, CO2 28, BUN 11, creatinine 0.4. Calcium 9.4, TSH is elevated at 8.240. N-terminal proBNP was 1590 on admission. Urine is essentially negative. A chest x-ray was done, compared to the x-ray that was done on March 24. There is elevation of the left hemidiaphragm. Allowing for technical differences, I do not see much change between the 2 x-rays. The patient is currently on Rocephin. She is also receiving Symbicort, and albuterol, as well as DuoNeb. Stat procalcitonin level was ordered. Review of Systems REVIEW OF SYSTEMS: CONSTITUTIONAL: [Negative.] NEUROLOGIC:. Blurred vision, and double vision. HEENT: [ Negative.] CARDIAC: [Negative.] PULMONARY: [Negative.] GI: [Negative.] : [Negative.] RHEUMATOLOGIC: [ Negative.] IMMUNOLOGIC: [ Negative.] ENDOCRINE: [Negative. ] DERMATOLOGIC: [Negative.] Past Medical History Past Medical History: Asthma, Heart Failure, COPD, Fibromyalgia, GERD/Reflux, Hypertension, Osteoarthritis (OA), Pneumonia, Pulmonary Embolus (PE), Skin Disorder, Thyroid Disorder Additional Past Medical History / Comment(s): Spinal Stenosis, Cervical disc disease/stenosis, scoliosis, recently having numbness/tingling L side of face/neck, recently saw [facility] for L hemidiaphragmatic elevation-pt states she was told this was probably genetic, recently bronchitis and past bronchitis, pt states recent med change (water pill) d/t electrolyte problem/kidney function being affected, pt states she has had pulmonary emboli, past bilateral lower extremity cellulitis, edema lower extremities, IBS, hemorrhoids, benign colon polyps, sinus problems, UTIs, bacteremia/sepsis, cardiac murmur, past L ankle and L wrist fractures. History of Any Multi-Drug Resistant Organisms: None Reported Past Surgical History: Bariatric Surgery, Section, Cholecystectomy, Hysterectomy, Tonsillectomy Additional Past Surgical History / Comment(s): EGD, colonoscopies, gastric bypass, surgery for deviated septum, left cataract removal (having laser procedure on that eye 11/24/23) Past Anesthesia/Blood Transfusion Reactions: Previous Problems w/ Anesthesia Additional Past Anesthesia/Blood Transfusion Reaction / Comment(s): itching after hysterectomy, some kind of breathing problem after gastric bypass-not sure what happened Past Psychological History: Anxiety, Bipolar, Depression, Panic Disorder Additional Psychological History / Comment(s): . Smoking Status: Current every day smoker Past Alcohol Use History: None Reported Additional Past Alcohol Use History / Comment(s): Pt started smoking in 1986 and quit when she went into [facility] 08/2021, started again after discharge from [facility] 05/2022 Past Drug Use History: Marijuana Additional Drug Use History / Comment(s): occassional cannabis use per pt - Past Family History Mother Family Medical History: Congestive Heart Failure (CHF), Hypertension Father History Unknown: Yes Additional Family Medical History / Comment(s): Father at the age of 45 yrs d/t having had rheumatic fever as a child and heart valve disease. Medications and Allergies Home Medications Medication Instructions Recorded Confirmed Type Montelukast [Singulair] 10 mg PO HS 12/17/13 04/01/24 History Levothyroxine Sodium [Synthroid] 150 mcg PO DAILY 03/29/20 04/01/24 History Budesonide/Formoterol Fumarate 2 puff INHALATION RT-BID 06/12/21 04/01/24 History [Symbicort 160-4.5 Mcg Inhaler] Famotidine [Pepcid] 20 mg PO BID 09/03/21 04/01/24 History Tamsulosin [Flomax] 0.4 mg PO DAILY@1200 10/26/21 04/01/24 History Ferrous Sulfate [Iron (65 MG 325 mg PO DAILY 11/13/22 04/01/24 History Elemental)] Ipratropium-Albuterol Nebulize 3 ml INHALATION RT-QID PRN 11/13/22 04/01/24 History [Duoneb 0.5 mg-3 mg/3 ml Soln] Thiamine [Vitamin B-1] 100 mg PO DAILY@1700 11/13/22 04/01/24 History Albuterol Inhaler [Ventolin Hfa 2 puff INHALATION RT-QID PRN #1 11/17/22 04/01/24 Rx Inhaler] each Ibandronate Sodium [Boniva] 150 mg PO Q30D 05/03/23 04/01/24 History Melatonin 5 mg PO HS PRN 05/03/23 04/01/24 History Acetaminophen [Tylenol Arthritis] 650 mg PO Q4HR PRN 10/24/23 04/01/24 History amLODIPine [Norvasc] 5 mg PO DAILY 12/12/23 04/01/24 History clonazePAM [KlonoPIN ODT] 0.25 mg PO HS 12/12/23 04/01/24 History OLANZapine [ZyPREXA] 15 mg PO HS 01/22/24 04/01/24 History Albuterol Nebulized [Ventolin 5 mg INHALATION RT-QID PRN #60 each 01/24/24 04/01/24 Rx Nebulized] HYDROcodone/APAP 5-325MG [[place] 1 tab PO Q6HR PRN 3 Days #12 tab 03/15/24 04/01/24 Rx 5-325] Folic Acid 1 mg PO DAILY@1700 03/18/24 04/01/24 History Venlafaxine HCl ER [Effexor XR] 150 mg PO DAILY 03/18/24 04/01/24 History hydrOXYzine HCL [Atarax] 25 mg PO BID 03/18/24 04/01/24 History lamoTRIgine [LaMICtal] 150 mg PO BID 03/18/24 04/01/24 History Divalproex ER [Depakote ER] 500 mg PO HS #60 tab 03/28/24 04/01/24 Rx Pyridoxine [Vitamin B-6] 50 mg PO DAILY #30 tab 03/28/24 04/01/24 Rx Allergies Allergy/AdvReac Type Severity Reaction Status Date / Time codeine Allergy Unknown Verified 04/01/24 18:35 Childhood Penicillins Allergy Rash/Hives Verified 04/01/24 18:35 Sulfa (Sulfonamide Allergy Rash/Hives Verified 04/01/24 18:35 Antibiotics) Physical Exam Osteopathic Statement: *. No significant issues noted on an osteopathic structural exam other than those noted in the History and Physical/Consult. Vitals: Vital Signs Temp Pulse Resp BP Pulse Ox 04/03/24 10:15 98.3 F 79 18 175/76 96 04/03/24 07:10 98.3 F 80 17 132/65 97 04/03/24 02:00 98.0 F 70 17 147/68 97 04/02/24 20:43 98.2 F 71 18 131/64 96 04/02/24 20:36 71 Intake and Output 04/02/24 04/03/24 04/03/24 22:59 06:59 14:59 Intake Total 0 222 Output Total 400 Balance 0 -400 222 Intake: Oral 0 222 Output: Urine 400 Other: Voiding Method Bedside Commode Bedside Commode # Voids 3 3 No acute distress, oriented 3. No respiratory distress. Currently without any pulmonary complaints. Currently on 2 l of oxygen. HEENT examination is grossly unremarkable. Mucous membranes are moist. No oral lesions. Neck supple. Full range of motion. No adenopathy thyromegaly or neck vein distention. Cardiovascular examination reveals regular rhythm rate. S1-S2 normal. No S3 or S4. No discernible murmur noted. Lungs reveal minimal scattered rhonchi. No wheezes or crackles. Breath sounds equal. 2 L saturation is 97%. Abdomen soft bowel sounds are heard. No masses or tenderness. Extremities are intact. No cyanosis clubbing or edema. There is a wound, on t he right knee. Skin is without rash or lesion. Neurologic examination is brief but nonfocal. Results - Laboratory Findings CBC and BMP: 04/03/24 03:29 04/03/24 03:29 PT/INR, D-dimer PT 10.9 sec (10.0-12.5) 04/01/24 16:46 INR 1.0 (<1.2) 04/01/24 16:46 Abnormal lab findings: Abnormal Labs 04/01/24 04/01/24 04/02/24 16:46 16:46 03:11 WBC 12.6 H 14.69 H RBC 3.67 L 3.53 L Hgb 10.9 L Hct 35.1 L MCV 99.4 H MCHC 31.1 L Plt Count 561 H 467 H MPV 9.0 L Immature Gran # 0.69 H Neutrophils # 9.1 H 9.08 H Monocytes # 1.50 H Basophils # 0.20 H Sodium 126 L Chloride 86 L Carbon Dioxide 31 H BUN 29 H Creatinine BUN/Creatinine Ratio Glucose Total Bilirubin AST 40 H Total Protein 6.0 L Albumin TSH Ur Leukocyte Esterase Urine WBC Urine Mucus 04/02/24 04/02/24 04/02/24 03:11 17:29 20:33 WBC RBC Hgb Hct MCV MCHC Plt Count MPV Immature Gran # Neutrophils # Monocytes # Basophils # Sodium 131 L Chloride Carbon Dioxide BUN Creatinine BUN/Creatinine Ratio 29.33 H Glucose 158 H Total Bilirubin <0.2 L AST Total Protein 5.1 L Albumin 3.3 L TSH Ur Leukocyte Esterase Small H Urine WBC 12 H Urine Mucus Rare H 04/03/24 04/03/24 03:29 03:29 WBC 11.97 H RBC 3.65 L Hgb 11.4 L Hct 35.9 L MCV 98.4 H MCHC 31.8 L Plt Count 542 H MPV 8.8 L Immature Gran # Neutrophils # Monocytes # Basophils # Sodium 134 L Chloride Carbon Dioxide BUN Creatinine 0.4 L BUN/Creatinine Ratio 28.00 H Glucose 128 H Total Bilirubin AST Total Protein Albumin TSH 8.240 H Ur Leukocyte Esterase Urine WBC Urine Mucus - Diagnostic Findings Chest x-ray: image reviewed Assessment and Plan Assessment: Acute blurred vision/double vision, currently being evaluated by the primary service. Chronic hypoxemic respiratory failure, secondary to COPD, stable, on home oxygen. Possible pneumonia, although the patient is not having any pneumonic symptoms, denies any fever, chills, cough, sputum production, etc. Bipolar disorder with anxiety. Fibromyalgia. History of chronic tobacco dependence. Hypothyroidism. History of hypertension. History of marijuana use. Plan: Plan dated April 03, 2024. The patient is seen today room 618. The patient was admitted with a diagnosis of double vision/blurred vision. That is currently being evaluated by the primary service. CT scan of the brain, showed no acute cranial process. The CT scan of the brain is compared to one done on March 24. Also, the chest x- ray, as compared to the x-ray done on March 24. In my opinion, there is not much difference between the 2 x-rays. Nonetheless, the patient was placed on c eftriaxone by the primary service. I have ordered a procalcitonin level to be done stat. If normal, the antibiotic should be discontinued. The patient is denying any pulmonary issues including shortness of breath, cough, wheezing, chest tightness, or phlegm production. She also denies any fever or chills. Time with Patient: Greater than 30
--- NOTE | 2024-04-03 17:35 | CT ---
CTA CHEST EXAMINATION TYPE: CT angio chest DATE OF EXAM: 04/03/2024 INDICATION: Chest pain and elevated D-dimer. Hx of PE. Priors in PACS CT DLP: 469 mGycm, Automated exposure control for dose reduction was used. CONTRAST: Patient injected with 100 cc mL of Isovue 370. COMPARISON: 05/05/2023 TECHNIQUE: CT of the chest is performed on a spiral scan at 2 mm thick sections. Study is performed with intravenous contrast timed for evaluation for pulmonary embolism. This will limit additional po rtions of the evaluation. 3-D MIP images reconstructed by the technologist are reviewed on the compu ter in the coronal and sagittal planes. FINDINGS: No persistent filling defects are evident to suggest an acute pulmonary embolism. No mediastinal or hilar adenopathy enlarged by CT criteria is evident. The ascending aorta diameter at the level of the main pulmonary artery is 3.9 cm. The main pulmonary artery diameter at the bifurcation is 3.1 cm. 2 scattered groundglass opacities within the upper lung flores some mild atelectatic type changes may be in the posterior right base. There is focal eventration of the posterior lateral left diaphragm. There is a hypodensity within the enlarged right lobe thyroid. This area measures 1.2 cm. Follow-up w ith ultrasound can be performed when the patient is stable. Limited CT sections were through the upper abdomen. Upper abdomen appears unremarkable. IMPRESSION: 1. No acute pulmonary embolism. 2. Minimal right pleural effusion likely with adjacent atelectasis. 3. Enlarged heterogenous right lobe thyroid. Follow-up with ultrasound recommended [facility], , 04/03/2024 5:32 PM
--- NOTE | 2024-04-03 19:22 | P.PN ---
Subjective Patient is seen for follow-up for hyponatremia. Serum sodium at 134 today. Patient denies any significant complaints. Objective - Vital Signs Vital signs: Vital Signs Temp 98.4 F 04/03/24 13:40 Pulse 79 04/03/24 13:40 Resp 17 04/03/24 13:40 BP 151/68 04/03/24 13:40 Pulse Ox 96 04/03/24 18:00 FiO2 Intake & Output 04/03/24 04/03/24 04/04/24 06:59 18:59 06:59 Intake Total 666 Output Total 400 Balance -400 666 Intake: Oral 666 Output: Urine 400 Other: Voiding Method Bedside Commode # Voids 3 2 # Bowel Movements 0 - Exam Patient is awake, comfortable, no acute distress. Examination of the heart S1 and S2 Examination of the lungs bilateral breath sounds are heard Abdomen is soft nontender Examination of lower extremities shows no significant edema. - Labs CBC & Chem 7: 04/03/24 03:29 04/03/24 03:29 Labs: Abnormal Lab Results - Last 24 Hours (Table) 04/02/24 04/03/24 04/03/24 Range/Units 20:33 03:29 03:29 WBC 11.97 H (4.50-10.00) X 10*3/uL RBC 3.65 L (4.10-5.20) X 10*6/uL Hgb 11.4 L (12.0-15.0) g/dL Hct 35.9 L (37.2-46.3) % MCV 98.4 H (80.0-97.0) FL MCHC 31.8 L (32.0-37.0) g/dL Plt Count 542 H (140-440) X 10*3/uL MPV 8.8 L (9.5-12.2) FL D-Dimer (<0.60) mg/L FEU Sodium 134 L (135-145) mmol/L Creatinine 0.4 L (0.6-1.5) mg/dL BUN/Creatinine Ratio 28.00 H (12.00-20.00) Ratio Glucose 128 H (70-110) mg/dL C-Reactive Protein (<1.0) mg/dL TSH 8.240 H (0.350-5.500) UIU/ML Ur Leukocyte Esterase Small H (Negative) Urine WBC 12 H (0-5) /hpf Urine Mucus Rare H (None) /hpf 04/03/24 04/03/24 Range/Units 14:49 14:49 WBC (4.50-10.00) X 10*3/uL RBC (4.10-5.20) X 10*6/uL Hgb (12.0-15.0) g/dL Hct (37.2-46.3) % MCV (80.0-97.0) FL MCHC (32.0-37.0) g/dL Plt Count (140-440) X 10*3/uL MPV (9.5-12.2) FL D-Dimer 0.97 H (<0.60) mg/L FEU Sodium (135-145) mmol/L Creatinine (0.6-1.5) mg/dL BUN/Creatinine Ratio (12.00-20.00) Ratio Glucose (70-110) mg/dL C-Reactive Protein 1.6 H (<1.0) mg/dL TSH (0.350-5.500) UIU/ML Ur Leukocyte Esterase (Negative) Urine WBC (0-5) /hpf Urine Mucus (None) /hpf Assessment and Plan Assessment: 1. Acute on chronic hyponatremia. Appears euvolemic. On Effexor and Depakote which can induce hyponatremia. Also component of excess fluid intake. Sodium level 126 on admission. Currently on normal saline. 2. Generalized weakness with vision changes. Brain CT negative. 3. Hypothyroidism maintained on levothyroxine. 4. History of bipolar disorder and depression. 5. Benign hypertension. Plan: Continue off of IV fluids. Repeat labs in AM.
--- NOTE | 2024-04-04 03:10 | PN ---
PROGRESS NOTE DATE OF SERVICE: 04/03/2024 SUBJECTIVE: This is a 68-year-old woman who was admitted with hyponatremic hypovolemia, is complaining of severe pain also. The patient has multiple abrasions. The patient also had a wound below the right knee also. No chest pain. No palpitation. The patient has significant hyponatremia. Currently, sodium is 134. White count is elevated to 11.7. PAST MEDICAL HISTORY: Reviewed. REVIEW OF SYSTEMS: A 14-point review is negative except as mentioned earlier. CURRENT MEDICATIONS: Home medications are reviewed include DuoNeb. PHYSICAL EXAMINATION: VITAL SIGNS: Pulse is 79, blood pressure 170/76, respirations 18. HEENT: Conjunctivae normal. NECK: No JVD. CARDIOVASCULAR: S1, S2. RESPIRATIONS: A few scattered rhonchi. ABDOMEN: Soft. NERVOUS SYSTEM: Nonfocal. LABORATORY DATA: Reviewed. ASSESSMENT: 1. Severe hyponatremia, possibly hypovolemic hyponatremia. 2. Generalized aches and pains. 3. Possible urinary tract infection, present on admission. 4. Generalized weakness. 5. Chronic obstructive pulmonary disease. 6. Gastroesophageal reflux disease. 7. Hypertension. 8. Elevated WBC of undetermined significance. 9. History of fibromyalgia. 10.History of pulmonary embolism. RECOMMENDATIONS: In this 68-year-old woman, who presented with multiple complex medical issues, we will monitor the patient closely. Continue the current management and continue symptomatic treatment. Otherwise, the patient is on empiric antibiotic at this time. I would recommend urine culture. We will continue to monitor. Guarded prognosis because of multiple complex medical issues. Further recommendations to follow. MMODL / IJN: [id number] /
--- NOTE | 2024-04-04 08:29 | P.CONS ---
History of Present Illness - Reason for Consult Consult date: 04/03/24 Pneumonia Requesting physician: Megan Esparza - Chief Complaint Blurry and double vision x 1 day - History of Present Illness Patient is a 68-year-old female with a past medical history significant for hypertension osteoarthritis fibromyalgia COPD heart failure as thma PE presenting to the hospital 2 days ago for evaluation of blurry vision throughout the day and the patient did have some double vision denies having any pain on movement of the eyeball patient mention did have improvement in her double as well as blurry vision or headache patient did have a chest x-ray concerning for ongoing patchy lower lung opacity and trace effusion with concern for possible pneumonia patient was started on Rocephin infectious disease was consulted for further management of antibiotic therapy patient on presentation to the hospital was afebrile and no fever have been recorded subsequently patient was not tachycardic or hypotensive she is on 2 L nasal cannula oxygen which is chronic for as the patient did have a history of COPD patient on presentation to the hospital have white count of 12.6 subsequent white count is up to 14.69 patient did have a creatinine 0.87 liver enzymes are normal urine has been negative patient also have a fall recently and has developed laceration to the right leg just below the knee area that has been stitched in the ER, has not did have some skin necrosis patient been complaining of pain to the right leg area mostly throbbing mild to moderate intensity without radiation denies having any foul-smelling drainage Review of Systems Positive point and negatives has been mentioned in the HPI, complete review of systems was performed and all other systems are negative Past Medical History Past Medical History: Asthma, Heart Failure, COPD, Fibromyalgia, GERD/Reflux, Hypertension, Osteoarthritis (OA), Pneumonia, Pulmonary Embolus (PE), Skin Disorder, Thyroid Disorder Additional Past Medical History / Comment(s): Spinal Stenosis, Cervical disc disease/stenosis, scoliosis, recently having numbness/tingling L side of face/neck, recently saw director validation for L hemidiaphragmatic elevation-pt states she was told this was probably genetic, recently bronchitis and past bronchitis, pt states recent med change (water pill) d/t electrolyte problem/kidney function being affected, pt states she has had pulmonary emboli, past bilateral lower extremity cellulitis, edema lower extremities, IBS, hemorrhoids, benign colon polyps, sinus problems, UTIs, bacteremia/sepsis, cardiac murmur, past L ankle and L wrist fractures. History of Any Multi-Drug Resistant Organisms: None Reported Past Surgical History: Bariatric Surgery, Section, Cholecystectomy, Hysterectomy, Tonsillectomy Additional Past Surgical History / Comment(s): EGD, colonoscopies, gastric b ypass, surgery for deviated septum, left cataract removal (having laser procedure on that eye 11/24/23) Past Anesthesia/Blood Transfusion Reactions: Previous Problems w/ Anesthesia Additional Past Anesthesia/Blood Transfusion Reaction / Comm: itching after hysterectomy, some kind of breathing problem after gastric bypass-not sure what happened Past Psychological History: Anxiety, Bipolar, Depression, Panic Disorder Additional Psychological History / Comment(s): . Smoking Status: Current every day smoker Past Alcohol Use History: None Reported Additional Past Alcohol Use History / Comment(s): Pt started smoking in 1986 and quit when she went into [facility] 08/2021, started again after discharge from [facility] 05/2022 Past Drug Use History: Marijuana Additional Drug Use History / Comment(s): occassional cannabis use per pt - Past Family History Mother Family Medical History: Congestive Heart Failure (CHF), Hypertension Father History Unknown: Yes Additional Family Medical History / Comment(s): Father at the age of 45 yrs d/t having had rheumatic fever as a child and heart valve disease. Medications and Allergies Home Medications Medication Instructions Recorded Confirmed Type Montelukast [Singulair] 10 mg PO HS 12/17/13 04/01/24 History Levothyroxine Sodium [Synthroid] 150 mcg PO DAILY 03/29/20 04/01/24 History Budesonide/Formoterol Fumarate 2 puff INHALATION RT-BID 06/12/21 04/01/24 Histo ry [Symbicort 160-4.5 Mcg Inhaler] Famotidine [Pepcid] 20 mg PO BID 09/03/21 04/01/24 History Tamsulosin [Flomax] 0.4 mg PO DAILY@1200 10/26/21 04/01/24 History Ferrous Sulfate [Iron (65 MG 325 mg PO DAILY 11/13/22 04/01/24 History Elemental)] Ipratropium-Albuterol Nebulize 3 ml INHALATION RT-QID PRN 11/13/22 04/01/24 History [Duoneb 0.5 mg-3 mg/3 ml Soln] Thiamine [Vitamin B-1] 100 mg PO DAILY@1700 11/13/22 04/01/24 History Albuterol Inhaler [Ventolin Hfa 2 puff INHALATION RT-QID PRN #1 11/17/22 04/01/24 Rx Inhaler] each Ibandronate Sodium [Boniva] 150 mg PO Q30D 05/03/23 04/01/24 History Melatonin 5 mg PO HS PRN 05/03/23 04/01/24 History Acetaminophen [Tylenol Arthritis] 650 mg PO Q4HR PRN 10/24/23 04/01/24 History amLODIPine [Norvasc] 5 mg PO DAILY 12/12/23 04/01/24 History clonazePAM [KlonoPIN ODT] 0.25 mg PO HS 12/12/23 04/01/24 History OLANZapine [ZyPREXA] 15 mg PO HS 01/22/24 04/01/24 History Albuterol Nebulized [Ventolin 5 mg INHALATION RT-QID PRN #60 each 01/24/24 04/01/24 Rx Nebulized] HYDROcodone/APAP 5-325MG [Morven 1 tab PO Q6HR PRN 3 Days #12 tab 03/15/24 04/01/24 Rx 5-325] Folic Acid 1 mg PO DAILY@1700 03/18/24 04/01/24 History Venlafaxine HCl ER [Effexor XR] 150 mg PO DAILY 03/18/24 04/01/24 History hydrOXYzine HCL [Atarax] 25 mg PO BID 03/18/24 04/01/24 History lamoTRIgine [LaMICtal] 150 mg PO BID 03/18/24 04/01/24 History Divalproex ER [Depakote ER] 500 mg PO HS #60 tab 03/28/24 04/01/24 Rx Pyridoxine [Vitamin B-6] 50 mg PO DAILY #30 tab 03/28/24 04/01/24 Rx Allergies Allergy/AdvReac Type Severity Reaction Status Date / Time codeine Allergy Unknown Verified 04/01/24 18:35 Childhood Penicillins Allergy Rash/Hives Verified 04/01/24 18:35 Sulfa (Sulfonamide Allergy Rash/Hives Verified 04/01/24 18:35 Antibiotics) Physical Exam Vitals: Vital Signs Temp Pulse Resp BP Pulse Ox 04/03/24 10:15 98.3 F 79 18 175/76 96 04/03/24 07:10 98.3 F 80 17 132/65 97 04/03/24 02:00 98.0 F 70 17 147/68 97 04/02/24 20:43 98.2 F 71 18 131/64 96 04/02/24 20:36 71 Intake and Output 04/02/24 04/03/24 04/03/24 22:59 06:59 14:59 Intake Total 0 222 Output Total 400 Balance 0 -400 222 Intake: Oral 0 222 Output: Urine 400 Other: Voiding Method Bedside Commode Bedside Commode # Voids 3 3 GENERAL DESCRIPTION: Elderly female lying in bed, no distress. No tachypnea or accessory muscle of respiration use. HEENT: Shows Pallor , no scleral icterus. Oral mucous membrane is dry. No pharyngeal erythema or thrush NECK: Trachea central, no thyromegaly. LUNGS: Unlabored breathing. Decreased intensity of breath sounds. No wheeze or crackle. HEART: S1, S2, regular rate and rhythm. No loud murmur ABDOMEN: Soft, no tenderness , guarding or rigidity, no organomegaly EXTREMITIES: Right leg did have laceration with skin necrosis surrounding erythema SKIN: No rash, no masses palpable. NEUROLOGICAL: The patient is awake, alert, oriented x3, mood and affect normal. Results CBC & Chem 7: 04/03/24 03:29 04/03/24 03:29 Labs: Abnormal Lab Results - Last 24 Hours (Table) 04/02/24 04/02/24 04/03/24 Range/Units 17:29 20:33 03:29 WBC 11.97 H (4.50-10.00) X 10*3/uL RBC 3.65 L (4.10-5.20) X 10*6/uL Hgb 11.4 L (12.0-15.0) g/dL Hct 35.9 L (37.2-46.3) % MCV 98.4 H (80.0-97.0) FL MCHC 31.8 L (32.0-37.0) g/dL Plt Count 542 H (140-440) X 10*3/uL MPV 8.8 L (9.5-12.2) FL Sodium 131 L (137-145) mmol/L Creatinine (0.6-1.5) mg/dL BUN/Creatinine Ratio (12.00-20.00) Ratio Glucose (70-110) mg/dL TSH (0.350-5.500) UIU/ML Ur Leukocyte Esterase Small H (Negative) Urine WBC 12 H (0-5) /hpf Urine Mucus Rare H (None) /hpf 04/03/24 Range/Units 03:29 WBC (4.50-10.00) X 10*3/uL RBC (4.10-5.20) X 10*6/uL Hgb (12.0-15.0) g/dL Hct (37.2-46.3) % MCV (80.0-97.0) FL MCHC (32.0-37.0) g/dL Plt Count (140-440) X 10*3/uL MPV (9.5-12.2) FL Sodium 134 L (137-145) mmol/L Creatinine 0.4 L (0.6-1.5) mg/dL BUN/Creatinine Ratio 28.00 H (12.00-20.00) Ratio Glucose 128 H (70-110) mg/dL TSH 8.240 H (0.350-5.500) UIU/ML Ur Leukocyte Esterase (Negative) Urine WBC (0-5) /hpf Urine Mucus (None) /hpf Assessment and Plan (1) Leg wound, right Current Visit: Yes Status: Acute Code(s): S81.801A - UNSPECIFIED OPEN WOUND, RIGHT LOWER LEG, INITIAL ENCOUNTER SNOMED Code(s): 42777391979745012 (2) Cellulitis of right leg Current Visit: Yes Status: Acute Code(s): L03.115 - CELLULITIS OF RIGHT LOWER LIMB SNOMED Code(s): 36577354423655205 (3) Allergy to multiple antibiotics Current Visit: No Status: Acute Code(s): Z88.1 - ALLERGY STATUS TO OTHER ANTIBIOTIC AGENTS SNOMED Code(s): 315076326 (4) Leukocytosis Current Visit: No Status: Acute Code(s): D72.829 - ELEVATED WHITE BLOOD CELL COUNT, UNSPECIFIED SNOMED Code(s): 678143541 Plan: 1patient with abnormal chest x-ray concerning for opacity and question of pneumonia however the patient denies any chest pain shortness of breath or cough no fever clinically doubt pneumonia possible atelectasis 2-patient also have a wound to the right lower extremity with some skin necrosis and surrounding cellulitis could be responsible for the elevated white count 3-patient with multiple antibiotic ALLERGIES that would limit the number of antibiotic safe to use 4-continue with Rocephin however if the procalcitonin is normal we will advise switching antibiotic to cefazolin to cover for the right lower extremity cellulitis 5local wound care with Aquacel silver dressing and keep the area dry may need debridement of the necrotic skin discussed with the patient and the We will follow on clinical condition and cultures to further adjust medication if needed Thank you for this consultation we will follow the patient along with you Dictation was produced using [employer] dictation software. please excuse any grammatical, word or spelling errors. Time with Patient: Greater than 30
[2024-04-04 08:37] LABS: Basophils # (A) 0.17 X 10*3/uL (0.00-0.10); Basophils % (A) 1.6 %; Eosinophils % (A) 1.8 %; HCT 37.8 % (37.2-46.3); HGB 12.1 g/dL (12.0-15.0); Lymphocytes % (A) 26.5 %; MCH 30.9 pg (27.0-32.0); MCV 96.7 FL (80.0-97.0); Mean Platelet Volume 8.3 FL (9.5-12.2); Monocytes % (A) 10.1 %; NRBC Per 100 WBC 0 X 10*3/uL (0.00-0.01); Neutrophils # (A) 6.04 X 10*3/uL (1.80-7.70); Neutrophils % (A) 55.2 %; Platelet Count 593 X 10*3/uL (140-440); RBC 3.91 X 10*6/uL (4.10-5.20); RDW 13.6 % (11.5-14.5); WBC 10.94 X 10*3/uL (4.50-10.00)
[2024-04-04 08:57] LABS: ALT 24 U/L (8-44); AST 27 U/L (13-35); Albumin 3.6 g/dL (3.8-4.9); Albumin/Globulin Ratio 1.89 Ratio (1.60-3.17); Alkaline Phosphatase 79 U/L (41-126); Blood Urea Nitrogen 8.7 mg/dL (9.0-27.0); Calcium 9.9 mg/dL (8.7-10.3); Carbon Dioxide 30.8 mmol/L (21.6-31.8); Chloride 97 mmol/L (96-109); Globulin 1.9 g/dL (1.6-3.3); Glucose 79 mg/dL (70-110); Potassium 4.9 mmol/L (3.5-5.5); Sodium 135 mmol/L (135-145); Total Bilirubin <0.2 mg/dL (0.3-1.2); Total Protein 5.5 g/dL (6.2-8.2)
[2024-04-04] MEDS: LORazepam 2 MG/ML INJ IV PRN (11:18)
[2024-04-04] MEDS: IPRATROPIUM-ALBUTEROL 3 ML NEB INHALATION SCH (11:59)
--- NOTE | 2024-04-04 13:04 | P.PN ---
Subjective Progress Note Date: 04/04/24 68-year-old female who was seen in the emergency department, on April 01. She apparently came there because of blurred vision. She apparently was having double vision, and she states that she was told that she should go to the emergency room, to have it evaluated. We are consulted, because a chest x-ray shows some patchy infiltrates, and there was concern for pneumonia. I asked the patient specifically if she was having any lung issues, and she said no. She denied any shortness of breath, cough, wheezing, chest tightness, or phlegm production. She is on 3 L of oxygen, because of her underlying COPD. She does have a history of COPD, asthma, heart failure, fibromyalgia, GERD, hypertension, pulmonary embolism, and hypothyroidism, among other things. Current laboratory data includes a white count of 11.9, hemoglobin 11.4, hematocrit 35.9, and a platelet count of 542,000. Sodium 134, potassium 4.5, chlorides 98, CO2 28, BUN 11, creatinine 0.4. Calcium 9.4, TSH is elevated at 8.240. N-terminal proBNP was 1590 on admission. Urine is essentially negative. A chest x-ray was done, compared to the x-ray that was done on March 24. There is elevation of the left hemidiaphragm. Allowing for technical differences, I do not see much change between the 2 x-rays. The patient is currently on Rocephin. She is also receiving Symbicort, and albuterol, as well as DuoNeb. Stat procalcitonin level was ordered. The patient is seen today April 04, 2024 in follow-up on the regular medical floor. She is currently sitting up in bed. Awake and alert in no acute distress. She is doing much better today emotionally than compared to yesterday. She is maintaining good O2 saturations in the 90s on 2 L/min per nasal cannula. She did have a CT angiogram that ruled out pulmonary embolism. Procalcitonin was negative at 0.22. White count 10.9. Hemoglobin 12.1. Platelets 593. Sodium 135. Potassium 4.9. Bicarb 31. BUN 9. Creatinine 0.5. Glucose 79. She remains on DuoNeb inhalations, Singulair, Symbicort Lovenox for DVT prophylaxis. Objective - Vital Signs Vital signs: Vital Signs Temp 97.8 F 04/04/24 07:02 Pulse 80 04/04/24 12:12 Resp 18 04/04/24 08:00 BP 156/72 04/04/24 07:02 Pulse Ox 99 04/04/24 07:02 FiO2 Intake & Output 04/03/24 04/04/24 04/04/24 18:59 06:59 18:59 Intake Total 666 222 Balance 666 222 Intake: Oral 666 222 Other: Voiding Method Bedside Commode Bedside Commode # Voids 2 1 # Bowel Movements 0 - Exam GENERAL EXAM: Alert, pleasant, relaxed 68-year-old female, on 2 L nasal cannula, comfortable in no apparent distress. HEAD: Normocephalic. EYES: Normal reaction of pupils, equal size. NOSE: Clear with pink turbinates. THROAT: No erythema or exudates. NECK: No masses, no JVD. CHEST: No chest wall deformity. LUNGS: Equal air entry with no crackles, wheeze, rhonchi or dullness. CVS: S1 and S2 normal with no audible murmur, regular rhythm. ABDOMEN: No hepatosplenomegaly, normal bowel sounds, no guarding or rigidity. SPINE: No scoliosis or deformity SKIN: No rashes CENTRAL NERVOUS SYSTEM: No focal deficits, tone is normal in all 4 extremities. EXTREMITIES: There is no peripheral edema. No clubbing, no cyanosis. Peripheral pulses are intact. - Labs CBC & Chem 7: 04/04/24 03:30 04/04/24 03:30 Labs: Abnormal Lab Results - Last 24 Hours (Table) 04/03/24 04/03/24 04/03/24 Range/Units 14:49 14:49 14:49 WBC (4.50-10.00) X 10*3/uL RBC (4.10-5.20) X 10*6/uL Plt Count (140-440) X 10*3/uL MPV (9.5-12.2) FL Immature Gran # (0.00-0.04) X 10*3/uL Monocytes # (0.20-1.00) X 10*3/uL Basophils # (0.00-0.10) X 10*3/uL ESR 53 H (0-30) mm/Hr D-Dimer 0.97 H (<0.60) mg/L FEU BUN (9.0-27.0) mg/dL Creatinine (0.6-1.5) mg/dL Total Bilirubin (0.3-1.2) mg/dL C-Reactive Protein 1.6 H (<1.0) mg/dL Total Protein (6.2-8.2) g/dL Albumin (3.8-4.9) g/dL 04/04/24 04/04/24 Range/Units 03:30 03:30 WBC 10.94 H (4.50-10.00) X 10*3/uL RBC 3.91 L (4.10-5.20) X 10*6/uL Plt Count 593 H (140-440) X 10*3/uL MPV 8.3 L (9.5-12.2) FL Immature Gran # 0.53 H (0.00-0.04) X 10*3/uL Monocytes # 1.10 H (0.20-1.00) X 10*3/uL Basophils # 0.17 H (0.00-0.10) X 10*3/uL ESR (0-30) mm/Hr D-Dimer (<0.60) mg/L FEU BUN 8.7 L (9.0-27.0) mg/dL Creatinine 0.5 L (0.6-1.5) mg/dL Total Bilirubin <0.2 L (0.3-1.2) mg/dL C-Reactive Protein (<1.0) mg/dL Total Protein 5.5 L (6.2-8.2) g/dL Albumin 3.6 L (3.8-4.9) g/dL Microbiology - Last 24 Hours (Table) 04/02/24 20:33 Urine Culture - Preliminary Urine,Voided Group D Enterococcus Assessment and Plan Assessment: Acute blurred vision/double vision, currently being evaluated by the primary service. Chronic hypoxemic respiratory failure, secondary to COPD, stable, on home oxygen. Possible pneumonia, although the patient is not having any pneumonic symptoms, denies any fever, chills, cough, sputum production, etc. Bipolar disorder with anxiety. Fibromyalgia. History of chronic tobacco dependence. Hypothyroidism. History of hypertension. History of marijuana use. Plan: The patient was seen and examined Labs and medications reviewed Stable and on 2 L nasal cannula She is anxious to go home Stable from the pulmonary standpoint Continue her Symbicort, albuterol Continue her home oxygen I have personally seen and examined the patient, performed the documentation and the assessment and plan as written. Number of minutes spent on the visit: 10.
--- NOTE | 2024-04-04 13:05 | P.PN ---
Subjective Progress Note Date: 04/04/24 Principal diagnosis: Reason for follow-up is right knee/leg laceration cellulitis Patient is a 68-year-old female with a past medical history significant for hypertension osteoarthritis fibromyalgia COPD heart failure asthma PE presenting to the hospital for double vision the patient also have recent fall with laceration to the right lower leg at the knee site that was stitched previously. On today's evaluation that is 04/04/2024, Patient is afebrile this morning p atient denies having any chest pain shortness of breath or cough, the patient is breathing comfortably on room air, patient denies any abdominal pain no diarrhea no nausea no vomiting, still complaining of pain to the right knee wound area no drainage. Patient white count is down to 10.94 with a left shift creatinine is 0.5 Objective - Vital Signs Vital signs: Vital Signs Temp 97.8 F 04/04/24 07:02 Pulse 80 04/04/24 12:12 Resp 18 04/04/24 08:00 BP 156/72 04/04/24 07:02 Pulse Ox 99 04/04/24 07:02 FiO2 Intake & Output 04/03/24 04/04/24 04/04/24 18:59 06:59 18:59 Intake Total 666 222 Balance 666 222 Intake: Oral 666 222 Other: Voiding Method Bedside Commode Bedside Commode # Voids 2 1 # Bowel Movements 0 - Exam GENERAL DESCRIPTION: An elderly female lying in bed in no distress RESPIRATORY SYSTEM: Unlabored breathing , decreased breath sounds at bases HEART: S1 S2 regular rate and rhythm , ABDOMEN: Soft , no tenderness EXTREMITIES: Right knee leg area did have area of skin necrosis minimal surrounding redness - Labs CBC & Chem 7: 04/04/24 03:30 04/04/24 03:30 Labs: Abnormal Lab Results - Last 24 Hours (Table) 04/03/24 04/03/24 04/03/24 Range/Units 14:49 14:49 14:49 WBC (4.50-10.00) X 10*3/uL RBC (4.10-5.20) X 10*6/uL Plt Count (140-440) X 10*3/uL MPV (9.5-12.2) FL Immature Gran # (0.00-0.04) X 10*3/uL Monocytes # (0.20-1.00) X 10*3/uL Basophils # (0.00-0.10) X 10*3/uL ESR 53 H (0-30) mm/Hr D-Dimer 0.97 H (<0.60) mg/L FEU BUN (9.0-27.0) mg/dL Creatinine (0.6-1.5) mg/dL Total Bilirubin (0.3-1.2) mg/dL C-Reactive Protein 1.6 H (<1.0) mg/dL Total Protein (6.2-8.2) g/dL Albumin (3.8-4.9) g/dL 04/04/24 04/04/24 Range/Units 03:30 03:30 WBC 10.94 H (4.50-10.00) X 10*3/uL RBC 3.91 L (4.10-5.20) X 10*6/uL Plt Count 593 H (140-440) X 10*3/uL MPV 8.3 L (9.5-12.2) FL Immature Gran # 0.53 H (0.00-0.04) X 10*3/uL Monocytes # 1.10 H (0.20-1.00) X 10*3/uL Basophils # 0.17 H (0.00-0.10) X 10*3/uL ESR (0-30) mm/Hr D-Dimer (<0.60) mg/L FEU BUN 8.7 L (9.0-27.0) mg/dL Creatinine 0.5 L (0.6-1.5) mg/dL Total Bilirubin <0.2 L (0.3-1.2) mg/dL C-Reactive Protein (<1.0) mg/dL Total Protein 5.5 L (6.2-8.2) g/dL Albumin 3.6 L (3.8-4.9) g/dL Microbiology - Last 24 Hours (Table) 04/02/24 20:33 Urine Culture - Preliminary Urine,Voided Group D Enterococcus Assessment and Plan (1) Leg wound, right Current Visit: Yes Status: Acute Code(s): S81.801A - UNSPECIFIED OPEN WOUND, RIGHT LOWER LEG, INITIAL ENCOUNTER SNOMED Code(s): 97931512727519194 (2) Cellulitis of right leg Current Visit: Yes Status: Acute Code(s): L03.115 - CELLULITIS OF RIGHT LOWER LIMB SNOMED Code(s): 22454588842405480 (3) Allergy to multiple antibiotics Current Visit: No Status: Acute Code(s): Z88.1 - ALLERGY STATUS TO OTHER ANTIBIOTIC AGENTS SNOMED Code(s): 214916030 (4) Leukocytosis Current Visit: No Status: Acute Code(s): D72.829 - ELEVATED WHITE BLOOD CELL COUNT, UNSPECIFIED SNOMED Code(s): 773334950 Plan: 1patient with abnormal chest x-ray concerning for opacity and question of pneumonia however the patient denies any chest pain shortness of breath or cough no fever clinically doubt pneumonia possible atelectasis 2-patient also have a wound to the right lower extremity with some skin necrosis and surrounding cellulitis could be responsible for the elevated white count 3-patient with multiple antibiotic ALLERGIES that would limit the number of antibiotic safe to use 4-we will consult Dr. Ramon for possible debridement of the necrotic skin to the right leg and deep cultures we will add cefazolin for the cellulitis Dictation was produced using [employer] dictation software. please excuse any grammatical, word or spelling errors. Time with Patient: Less than 30
--- NOTE | 2024-04-04 14:28 | PN ---
PROGRESS NOTE DATE OF SERVICE: 04/04/2024 SUBJECTIVE: This is a 68-year-old woman who was admitted with hyponatremic hypovolemia, also complaining of severe pain. The patient had right knee injury with necrotic skin at this time. Sutures had been removed. The patient also had possible UTI present on admission and group D Enterococcus has been grown. White count is elevated. The chest CTA showed mild right pleural effusion with some atelectasis and enlarged right lobe thyroid also. No chest pain. No palpitation. PAST MEDICAL HISTORY: Reviewed. REVIEW OF SYSTEMS: A 14-point review is negative except as mentioned earlier. CURRENT MEDICATIONS: Reviewed include DuoNeb. PHYSICAL EXAMINATION: VITAL SIGNS: Pulse is 78, blood pressure is 150/73, respirations 18. HEENT: Conjunctivae normal. CARDIOVASCULAR: S1, S2. RESPIRATIONS: Breath sounds diminished at the bases. A few scattered rhonchi and crackles. ABDOMEN: Soft, nontender. SKIN: Right knee necrotic skin area present. LABORATORY DATA: WBC 10.93. Platelets are 593. Rest of the labs are noted. ASSESSMENT: 1. Severe hyponatremia, possibly hypovolemic hyponatremia. 2. Generalized aches and pains. 3. Possible cellulitis with necrotic skin on the right knee area. 4. Possible urinary tract infection present on admission with group D Enterococci. 5. Generalized weakness. 6. Possible atelectasis. 7. Chronic obstructive pulmonary disease. 8. Gastroesophageal reflux disease. 9. Hypertension. 10.Elevated WBC. 11.History of fibromyalgia. 12.History of pulmonary embolism. RECOMMENDATIONS: Recommend to continue current medications and continue symptomatic treatment. Otherwise, follow the cultures. Closely follow with Pulmonary, Infectious Disease. The patient is started on cefazolin. We will continue to monitor. Guarded prognosis. Further recommendations to follow. MMODL / IJN: [id number] /
[2024-04-05 05:05] LABS: Cocaine Screen,Urine Not Detected (NotDetected); Phencyclidine Screen,Urine Not Detected (NotDetected); Urn Cannabinoid Scrn Detected (NotDetected)
[2024-04-05 05:06] LABS: Amphetamine Screen,Urine Not Detected (NotDetected); Barbiturate Screen,Urine Not Detected (NotDetected); Benzodiazepines Screen,Urine Detected (NotDetected); Methadone Screen, Urine Not Detected (NotDetected); Opiate Screen,Urine Detected (NotDetected); Oxycodone Screen, Urine Not Detected (NotDetected); Tricyclic Antidepressant,Urine Not Detected (NotDetected)
[2024-04-05 08:42] LABS: Basophils # (A) 0.17 X 10*3/uL (0.00-0.10); Basophils % (A) 1.7 %; Eosinophils # (A) 0.16 X 10*3/uL (0.04-0.35); Eosinophils % (A) 1.6 %; HCT 35.2 % (37.2-46.3); Lymphocytes % (A) 27.5 %; MCH 30.8 pg (27.0-32.0); MCHC 31.3 g/dL (32.0-37.0); MCV 98.6 FL (80.0-97.0); Mean Platelet Volume 8.8 FL (9.5-12.2); Monocytes # (A) 1.12 X 10*3/uL (0.20-1.00); Monocytes % (A) 11.4 %; NRBC Per 100 WBC 0 X 10*3/uL (0.00-0.01); Neutrophils # (A) 5.33 X 10*3/uL (1.80-7.70); Neutrophils % (A) 54.2 %; Platelet Count 496 X 10*3/uL (140-440); RBC 3.57 X 10*6/uL (4.10-5.20); RDW 13.4 % (11.5-14.5); WBC 9.83 X 10*3/uL (4.50-10.00)
[2024-04-05 08:59] LABS: ALT 19 U/L (8-44); AST 23 U/L (13-35); Albumin 3.4 g/dL (3.8-4.9); Albumin/Globulin Ratio 2.12 Ratio (1.60-3.17); Alkaline Phosphatase 71 U/L (41-126); Blood Urea Nitrogen 9.7 mg/dL (9.0-27.0); Calcium 9.1 mg/dL (8.7-10.3); Carbon Dioxide 32.5 mmol/L (21.6-31.8); Chloride 96 mmol/L (96-109); Globulin 1.6 g/dL (1.6-3.3); Glucose 84 mg/dL (70-110); Potassium 4.6 mmol/L (3.5-5.5); Sodium 134 mmol/L (135-145); Total Bilirubin <0.2 mg/dL (0.3-1.2)
--- NOTE | 2024-04-05 10:42 | P.PN ---
Subjective Progress Note Date: 04/05/24 68-year-old female who was seen in the emergency department, on April 01. She apparently came there because of blurred vision. She apparently was having double vision, and she states that she was told that she should go to the emergency room, to have it evaluated. We are consulted, because a chest x-ray shows some patchy infiltrates, and there was concern for pneumonia. I asked the patient specifically if she was having any lung issues, and she said no. She denied any shortness of breath, cough, wheezing, chest tightness, or phlegm production. She is on 3 L of oxygen, because of her underlying COPD. She does have a history of COPD, asthma, heart failure, fibromyalgia, GERD, hypertension, pulmonary embolism, and hypothyroidism, among other things. Current laboratory data includes a white count of 11.9, hemoglobin 11.4, hematocrit 35.9, and a platelet count of 542,000. Sodium 134, potassium 4.5, chlorides 98, CO2 28, BUN 11, creatinine 0.4. Calcium 9.4, TSH is elevated at 8.240. N-terminal proBNP was 1590 on admission. Urine is essentially negative. A chest x-ray was done, compared to the x-ray that was done on March 24. There is elevation of the left hemidiaphragm. Allowing for technical differences, I do not see much change between the 2 x-rays. The patient is currently on Rocephin. She is also receiving Symbicort, and albuterol, as well as DuoNeb. Stat procalcitonin level was ordered. The patient is seen today April 04, 2024 in follow-up on the regular medical floor. She is currently sitting up in bed. Awake and alert in no acute distress. She is doing much better today emotionally than compared to yesterday. She is maintaining good O2 saturations in the 90s on 2 L/min per nasal cannula. She did have a CT angiogram that ruled out pulmonary embolism. Procalcitonin was negative at 0.22. White count 10.9. Hemoglobin 12.1. Platelets 593. Sodium 135. Potassium 4.9. Bicarb 31. BUN 9. Creatinine 0.5. Glucose 79. She remains on DuoNeb inhalations, Singulair, Symbicort Lovenox for DVT prophylaxis. The patient is seen today April 05, 2024 in follow-up on the regular medical floor. She is resting comfortably in bed. Awake and alert in no acute distress. Denies any worsening shortness of breath, cough or congestion. She is maintaining O2 saturations in the 90s on 2 L/min per nasal cannula. Her urine culture is positive for group D Enterococcus. Blood culture pending. White count 9.8. Hemoglobin 11.0. Platelets 496. Sodium 134. Potassium 4.6. Bicarb 33. BUN 10. Creatinine 0.5. Glucose 84. Her urine drug screen was positive for opiates, benzodiazepines and marijuana. Objective - Vital Signs Vital signs: Vital Signs Temp 98.4 F 04/05/24 07:10 Pulse 76 04/05/24 08:55 Resp 18 04/05/24 08:00 BP 172/76 04/05/24 07:10 Pulse Ox 96 04/05/24 08:58 FiO2 Intake & Output 04/04/24 04/05/24 04/05/24 18:59 06:59 18:59 Intake Total 422 Balance 422 Intake: Oral 422 Other: Voiding Method Bedside Commode Bedside Commode Bedside Commode # Voids 4 1 # Bowel Movements 0 - Exam GENERAL EXAM: Alert, relaxed 68-year-old female, resting in bed, on 2 L nasal cannula, in no apparent distress. HEAD: Normocephalic. EYES: Normal reaction of pupils, equal size. NOSE: Clear with pink turbinates. THROAT: No erythema or exudates. NECK: No masses, no JVD. CHEST: No chest wall deformity. LUNGS: Equal air entry with no crackles, wheeze, rhonchi or dullness. CVS: S1 and S2 normal with no audible murmur, regular rhythm. ABDOMEN: No hepatosplenomegaly, normal bowel sounds, no guarding or rigidity. SPINE: No scoliosis or deformity SKIN: No rashes CENTRAL NERVOUS SYSTEM: No focal deficits, tone is normal in all 4 extremities. EXTREMITIES: There is no peripheral edema. No clubbing, no cyanosis. Peripheral pulses are intact. - Labs CBC & Chem 7: 04/05/24 02:28 04/05/24 02:28 Labs: Abnormal Lab Results - Last 24 Hours (Table) 04/05/24 04/05/24 04/05/24 Range/Units 02:28 02:28 03:45 RBC 3.57 L (4.10-5.20) X 10*6/uL Hgb 11.0 L (12.0-15.0) g/dL Hct 35.2 L (37.2-46.3) % MCV 98.6 H (80.0-97.0) FL MCHC 31.3 L (32.0-37.0) g/dL Plt Count 496 H (140-440) X 10*3/uL MPV 8.8 L (9.5-12.2) FL Immature Gran # 0.35 H (0.00-0.04) X 10*3/uL Monocytes # 1.12 H (0.20-1.00) X 10*3/uL Basophils # 0.17 H (0.00-0.10) X 10*3/uL Sodium 134 L (135-145) mmol/L Carbon Dioxide 32.5 H (21.6-31.8) mmol/L Creatinine 0.5 L (0.6-1.5) mg/dL Total Bilirubin <0.2 L (0.3-1.2) mg/dL Total Protein 5.0 L (6.2-8.2) g/dL Albumin 3.4 L (3.8-4.9) g/dL Urine Opiates Screen Detected H (NotDetected) U Benzodiazepines Scrn Detected H (NotDetected) U Marijuana (THC) Screen Detected H (NotDetected) Microbiology - Last 24 Hours (Table) 04/03/24 14:49 Blood Culture - Preliminary Blood 04/02/24 20:33 Urine Culture - Preliminary Urine,Voided Group D Enterococcus Assessment and Plan Assessment: Acute blurred vision/double vision, currently being evaluated by the primary service Chronic hypoxemic respiratory failure, secondary to COPD, stable, on home oxygen Urinary tract infection secondary to group D Streptococcus Bipolar disorder with anxiety Fibromyalgia History of chronic tobacco dependence Hypothyroidism History of hypertension History of marijuana use Plan: The patient was seen and examined Labs and medications reviewed Group D Enterococcus UTI Initiated on cefazolin Infectious disease is on the case Stable and on 2 L nasal cannula Continue the current treatment plan This patient was seen independently by the pulmonary nurse practitioner addressing pulmonary issues I have personally seen and examined the patient, performed the documentation and the assessment and plan as written. Number of minutes spent on the visit: 24.
--- NOTE | 2024-04-05 11:08 | P.PN ---
Subjective Patient is seen for follow-up for hyponatremia. Serum sodium at 134 today. Patient denies any significant complaints. Tolerating oral intake. Objective - Vital Signs Vital signs: Vital Signs Temp 98.4 F 04/05/24 07:10 Pulse 76 04/05/24 08:55 Resp 18 04/05/24 08:00 BP 172/76 04/05/24 07:10 Pulse Ox 96 04/05/24 08:58 FiO2 Intake & Output 04/04/24 04/05/24 04/05/24 18:59 06:59 18:59 Intake Total 422 Balance 422 Intake: Oral 422 Other: Voiding Method Bedside Commode Bedside Commode Bedside Commode # Voids 4 1 # Bowel Movements 0 - Exam Patient is awake, comfortable, no acute distress. Examination of the heart S1 and S2 Examination of the lungs bilateral breath sounds are heard Abdomen is soft nontender Examination of lower extremities shows no significant edema. Right knee is dressed - Labs CBC & Chem 7: 04/05/24 02:28 04/05/24 02:28 Labs: Abnormal Lab Results - Last 24 Hours (Table) 04/05/24 04/05/24 04/05/24 Range/Units 02:28 02:28 03:45 RBC 3.57 L (4.10-5.20) X 10*6/uL Hgb 11.0 L (12.0-15.0) g/dL Hct 35.2 L (37.2-46.3) % MCV 98.6 H (80.0-97.0) FL MCHC 31.3 L (32.0-37.0) g/dL Plt Count 496 H (140-440) X 10*3/uL MPV 8.8 L (9.5-12.2) FL Immature Gran # 0.35 H (0.00-0.04) X 10*3/uL Monocytes # 1.12 H (0.20-1.00) X 10*3/uL Basophils # 0.17 H (0.00-0.10) X 10*3/uL Sodium 134 L (135-145) mmol/L Carbon Dioxide 32.5 H (21.6-31.8) mmol/L Creatinine 0.5 L (0.6-1.5) mg/dL Total Bilirubin <0.2 L (0.3-1.2) mg/dL Total Protein 5.0 L (6.2-8.2) g/dL Albumin 3.4 L (3.8-4.9) g/dL Urine Opiates Screen Detected H (NotDetected) U Benzodiazepines Scrn Detected H (NotDetected) U Marijuana (THC) Screen Detected H (NotDetected) Microbiology - Last 24 Hours (Table) 04/03/24 14:49 Blood Culture - Preliminary Blood 04/02/24 20:33 Urine Culture - Preliminary Urine,Voided Group D Enterococcus Assessment and Plan Assessment: 1. Acute on chronic hyponatremia. Appears euvolemic. On Effexor and Depakote which can induce hyponatremia. Also component of excess fluid intake. Sodium level 126 on admission. Currently at 134. Status post normal saline. 2. Generalized weakness with vision changes. Brain CT negative. 3. Hypothyroidism maintained on levothyroxine. 4. History of bipolar disorder and depression. 5. Benign hypertension. Plan: Continue off of IV fluids. Stable for discharge from nephrology standpoint
--- NOTE | 2024-04-05 12:55 | PN ---
PROGRESS NOTE DATE OF SERVICE: 04/05/2024 SUBJECTIVE: This is a 68-year-old woman, who was admitted with severe hyponatremia, also had multiple other medical problems including possible cellulitis and UTI with group D Enterococcus also. Multiple consultants are following the patient closely. No chest pain. No palpitation. OBJECTIVE: GENERAL: The patient is severely anxious. VITAL SIGNS: Pulse 82, blood pressure 172/70, respirations 18. CHEST: A few scattered rhonchi and crackles. ABDOMEN: Soft. NERVOUS SYSTEM: Nonfocal. LABORATORY DATA: Hemoglobin 11. Sodium 134. THC positive. ASSESSMENT: 1. Severe hyponatremia, possibly hypovolemic hyponatremia. 2. Generalized aches and pains. 3. Cellulitis with necrotic skin on the right knee area. 4. Urinary tract infection, possibly present on admission with group D enterococci. 5. Generalized weakness. 6. Atelectasis. 7. Chronic obstructive pulmonary disease. 8. Gastroesophageal reflux disease. 9. Multiple complex medical issues. RECOMMENDATIONS: Recommend to continue current management and continue symptomatic treatment. Continue with antibiotics. Continue rest of medication, bronchodilators, DVT prophylaxis. Closely follow with multiple consultants. Guarded prognosis. Further recommendations to follow. MMODL / IJN: [id number] /
[2024-04-05] MEDS: MORPHINE SULFATE 4 MG/ML SYRINGE IVP STA (16:51)
--- NOTE | 2024-04-05 17:46 | P.GSCN ---
History of Present Illness History of present illness: 68-year-old white female consulted for right lower extremity history of fall at home a week ago and patient came to the emergency room with skin was closed and has a flap necrosis of the wound patient also has history of blurry vision, hyponatremia and dizziness Medical history history of COPD CHF pulmonary embolism Surgical history patient had a gastric bypass for weight loss in the past and also patient had a cholecystectomy On examination vital signs stable neck supple no bruit appreciated Chest few crackles at the lung bases. Second sound present Abdomen soft nontender Vascular femorals are 2+ bilateral DP palpable bilateral patient has a flap necrosis of the wound right lower extremity measurement is 6 x 5 cm Plan is debridement of the wound and deep culture patient is under care of infectious disease Past Medical History Past Medical History: Asthma, Heart Failure, COPD, Fibromyalgia, GERD/Reflux, Hypertension, Osteoarthritis (OA), Pneumonia, Pulmonary Embolus (PE), Skin Disorder, Thyroid Disorder Additional Past Medical History / Comment(s): Spinal Stenosis, Cervical disc disease/stenosis, scoliosis, recently having numbness/tingling L side of face/neck, recently saw tile molder for L hemidiaphragmatic elevation-pt states she was told this was probably genetic, recently bronchitis and past bronchitis, pt states recent med change (water pill) d/t electrolyte problem/kidney function being affected, pt states she has had pulmonary emboli, past bilateral lower extremity cellulitis, edema lower extremities, IBS, hemorrhoids, benign colon polyps, sinus problems, UTIs, bacteremia/sepsis, cardiac murmur, past L ankle and L wrist fractures. History of Any Multi-Drug Resistant Organisms: None Reported Past Surgical History: Bariatric Surgery, Section, Cholecystectomy, Hysterectomy, Tonsillectomy Additional Past Surgical History / Comment(s): EGD, colonoscopies, gastric bypass, surgery for deviated septum, left cataract removal (having laser procedure on that eye 11/24/23) Past Anesthesia/Blood Transfusion Reactions: Previous Problems w/ Anesthesia Additional Past Anesthesia/Blood Transfusion Reaction / Comm: itching after hysterectomy, some kind of breathing problem after gastric bypass-not sure what happened Past Psychological History: Anxiety, Bipolar, Depression, Panic Disorder Additional Psychological History / Comment(s): . Smoking Status: Current every day smoker Past Alcohol Use History: None Reported Additional Past Alcohol Use History / Comment(s): Pt started smoking in 1986 and quit when she went into [facility] 08/2021, started again after discharge from [facility] 05/2022 Past Drug Use History: Marijuana Additional Drug Use History / Comment(s): occassional cannabis use per pt - Past Family History Mother Family Medical History: Congestive Heart Failure (CHF), Hypertension Father History Unknown: Yes Additional Family Medical History / Comment(s): Father at the age of 45 yrs d/t having had rheumatic fever as a child and heart valve disease. Medications and Allergies Home Medications Medication Instructions Recorded Confirmed Type Montelukast [Singulair] 10 mg PO HS 12/17/13 04/01/24 History Levothyroxine Sodium [Synthroid] 150 mcg PO DAILY 03/29/20 04/01/24 History Budesonide/Formoterol Fumarate 2 puff INHALATION RT-BID 06/12/21 04/01/24 History [Symbicort 160-4.5 Mcg Inhaler] Famotidine [Pepcid] 20 mg PO BID 09/03/21 04/01/24 History Tamsulosin [Flomax] 0.4 mg PO DAILY@1200 10/26/21 04/01/24 History Ferrous Sulfate [Iron (65 MG 325 mg PO DAILY 11/13/22 04/01/24 History Elemental)] Ipratropium-Albuterol Nebulize 3 ml INHALATION RT-QID PRN 11/13/22 04/01/24 History [Duoneb 0.5 mg-3 mg/3 ml Soln] Thiamine [Vitamin B-1] 100 mg PO DAILY@1700 11/13/22 04/01/24 History Albuterol Inhaler [Ventolin Hfa 2 puff INHALATION RT-QID PRN #1 11/17/22 0 04/01/24 Rx Inhaler] each Ibandronate Sodium [Boniva] 150 mg PO Q30D 05/03/23 04/01/24 History Melatonin 5 mg PO HS PRN 05/03/23 04/01/24 History Acetaminophen [Tylenol Arthritis] 650 mg PO Q4HR PRN 10/24/23 04/01/24 History amLODIPine [Norvasc] 5 mg PO DAILY 12/12/23 04/01/24 History clonazePAM [KlonoPIN ODT] 0.25 mg PO HS 12/12/23 04/01/24 History OLANZapine [ZyPREXA] 15 mg PO HS 01/22/24 04/01/24 History Albuterol Nebulized [Ventolin 5 mg INHALATION RT-QID PRN #60 each 01/24/24 04/01/24 Rx Nebulized] HYDROcodone/APAP 5-325MG [[place] 1 tab PO Q6HR PRN 3 Days #12 tab 03/15/24 04/01/24 Rx 5-325] Folic Acid 1 mg PO DAILY@1700 03/18/24 04/01/24 History Venlafaxine HCl ER [Effexor XR] 150 mg PO DAILY 03/18/24 04/01/24 History hydrOXYzine HCL [Atarax] 25 mg PO BID 03/18/24 04/01/24 History lamoTRIgine [LaMICtal] 150 mg PO BID 03/18/24 04/01/24 History Divalproex ER [Depakote ER] 500 mg PO HS #60 tab 03/28/24 04/01/24 Rx Pyridoxine [Vitamin B-6] 50 mg PO DAILY #30 tab 03/28/24 04/01/24 Rx Allergies Allergy/AdvReac Type Severity Reaction Status Date / Time codeine Allergy Unknown Verified 04/01/24 18:35 Childhood Penicillins Allergy Rash/Hives Verified 04/01/24 18:35 Sulfa (Sulfonamide Allergy Rash/Hives Verified 04/01/24 18:35 Antibiotics) Surgical - Exam Vital Signs Temp Pulse Resp BP Pulse Ox 98.2 F 69 16 138/66 95 04/01/24 16:06 04/01/24 16:06 04/01/24 16:06 04/01/24 16:06 04/01/24 16:06 Results - Labs 04/05/24 02:28 04/05/24 02:28 Abnormal Lab Results - Last 24 Hours (Table) 04/05/24 04/05/24 04/05/24 Range/Units 02:28 02:28 03:45 RBC 3.57 L (4.10-5.20) X 10*6/uL Hgb 11.0 L (12.0-15.0) g/dL Hct 35.2 L (37.2-46.3) % MCV 98.6 H (80.0-97.0) FL MCHC 31.3 L (32.0-37.0) g/dL Plt Count 496 H (140-440) X 10*3/uL MPV 8.8 L (9.5-12.2) FL Immature Gran # 0.35 H (0.00-0.04) X 10*3/uL Monocytes # 1.12 H (0.20-1.00) X 10*3/uL Basophils # 0.17 H (0.00-0.10) X 10*3/uL Sodium 134 L (135-145) mmol/L Carbon Dioxide 32.5 H (21.6-31.8) mmol/L Creatinine 0.5 L (0.6-1.5) mg/dL Total Bilirubin <0.2 L (0.3-1.2) mg/dL Total Protein 5.0 L (6.2-8.2) g/dL Albumin 3.4 L (3.8-4.9) g/dL Urine Opiates Screen Detected H (NotDetected) U Benzodiazepines Scrn Detected H (NotDetected) U Marijuana (THC) Screen Detected H (NotDetected) Microbiology - Last 24 Hours (Table) 04/02/24 20:33 Urine Culture - Final Urine,Voided Enterococcus faecalis 04/03/24 14:49 Blood Culture - Preliminary Blood Diabetes panel 04/05/24 Range/Units 02:28 Sodium 134 L (135-145) mmol/L Potassium 4.6 (3.5-5.5) mmol/L Chloride 96 (96-109) mmol/L Carbon Dioxide 32.5 H (21.6-31.8) mmol/L BUN 9.7 (9.0-27.0) mg/dL Creatinine 0.5 L (0.6-1.5) mg/dL Glucose 84 (70-110) mg/dL Calcium 9.1 (8.7-10.3) mg/dL AST 23 (13-35) U/L ALT 19 (8-44) U/L Alkaline Phosphatase 71 (41-126) U/L Total Protein 5.0 L (6.2-8.2) g/dL Albumin 3.4 L (3.8-4.9) g/dL Calcium panel 04/05/24 Range/Units 02:28 Calcium 9.1 (8.7-10.3) mg/dL Albumin 3.4 L (3.8-4.9) g/dL Pituitary panel 04/05/24 Range/Units 02:28 Sodium 134 L (135-145) mmol/L Potassium 4.6 (3.5-5.5) mmol/L Chloride 96 (96-109) mmol/L Carbon Dioxide 32.5 H (21.6-31.8) mmol/L BUN 9.7 (9.0-27.0) mg/dL Creatinine 0.5 L (0.6-1.5) mg/dL Glucose 84 (70-110) mg/dL Calcium 9.1 (8.7-10.3) mg/dL Adrenal panel 04/05/24 Range/Units 02:28 Sodium 134 L (135-145) mmol/L Potassium 4.6 (3.5-5.5) mmol/L Chloride 96 (96-109) mmol/L Carbon Dioxide 32.5 H (21.6-31.8) mmol/L BUN 9.7 (9.0-27.0) mg/dL Creatinine 0.5 L (0.6-1.5) mg/dL Glucose 84 (70-110) mg/dL Calcium 9.1 (8.7-10.3) mg/dL Total Bilirubin <0.2 L (0.3-1.2) mg/dL AST 23 (13-35) U/L ALT 19 (8-44) U/L Alkaline Phosphatase 71 (41-126) U/L Total Protein 5.0 L (6.2-8.2) g/dL Albumin 3.4 L (3.8-4.9) g/dL
--- NOTE | 2024-04-05 17:49 | P.PCN ---
Description of Procedure: Preop diagnosis traumatic wound right lower extremity with flap necrosis measurement is 6 x 5 cm Postop the same postdebridement measurements you 6.5 x 0.5 cm Procedure right leg was prepped and draped in Prestel manner 1% lidocaine for infiltrated using knife we excised the necrotic skin down to subcu tissue all the devitalized tissue was excised no active bleeding was noted wound was irrigated with saline Santyl cream was applied dressing applied patient tarted the procedure well at next dressing will be changed on Wednesday with IV antibiotic will follow with you
[2024-04-05] MEDS: COLLAGENASE 250 UNIT/GM OINTMENT 30 GM TUBE TOPICAL SCH (18:17)
--- NOTE | 2024-04-06 10:54 | P.PN ---
Subjective Progress Note Date: 04/06/24 Principal diagnosis: Urinary tract infection. 68-year-old female who was seen in the emergency department, on April 01. She apparently came there because of blurred vision. She apparently was having double vision, and she states that she was told that she should go to the emergency room, to have it evaluated. We are consulted, because a chest x-ray shows some patchy infiltrates, and there was concern for pneumonia. I asked the patient specifically if she was having any lung issues, and she said no. She denied any shortness of breath, cough, wheezing, chest tightness, or phlegm production. She is on 3 L of oxygen, because of her underlying COPD. She does have a history of COPD, asthma, heart failure, fibromyalgia, GERD, hypertension, pulmonary embolism, and hypothyroidism, among other things. Current laboratory data includes a white count of 11.9, hemoglobin 11.4, hematocrit 35.9, and a platelet count of 542,000. Sodium 134, potassium 4.5, chlorides 98, CO2 28, BUN 11, creatinine 0.4. Calcium 9.4, TSH is elevated at 8.240. N-terminal proBNP was 1590 on admission. Urine is essentially negative. A chest x-ray was done, compared to the x-ray that was done on March 24. There is elevation of the left hemidiaphragm. Allowing for technical differences, I do not see much change between the 2 x-rays. The patient is currently on Rocephin. She is also receiving Symbicort, and albuterol, as well as DuoNeb. Stat procalcitonin level was ordered. The patient is seen today April 04, 2024 in follow-up on the regular medical floor. She is currently sitting up in bed. Awake and alert in no acute distress. She is doing much better today emotionally than compared to yesterday. She is maintaining good O2 saturations in the 90s on 2 L/min per nasal cannula. She did have a CT angiogram that ruled out pulmonary embolism. Procalcitonin was negative at 0.22. White count 10.9. Hemoglobin 12.1. Platelets 593. Sodium 135. Potassium 4.9. Bicarb 31. BUN 9. Creatinine 0.5. Glucose 79. She remains on DuoNeb inhalations, Singulair, Symbicort Lovenox for DVT prophylaxis. The patient is seen today April 05, 2024 in follow-up on the regular medical floor. She is resting comfortably in bed. Awake and alert in no acute distress . Denies any worsening shortness of breath, cough or congestion. She is maintaining O2 saturations in the 90s on 2 L/min per nasal cannula. Her urine culture is positive for group D Enterococcus. Blood culture pending. White count 9.8. Hemoglobin 11.0. Platelets 496. Sodium 134. Potassium 4.6. Bicarb 33. BUN 10. Creatinine 0.5. Glucose 84. Her urine drug screen was positive for opiates, benzodiazepines and marijuana. Progress note dated April 06, 2024. The patient is seen today in room 618. She continues on oxygen at 2 L. Saturations are 95%. She is not receiving any IV fluids. She is not having any respiratory issues. Her urine was positive for Enterococcus faecalis. She is currently on Ancef. No new labs today. Labs from April 05 have been reviewed. She did have cultures, from the right knee wound, which show evidence of presumptive Staph aureus, and gram-negative bacilli. Infectious disease animal nutrition consultant is following. Objective - Vital Signs Vital signs: Vital Signs Temp 98.2 F 04/06/24 07:00 Pulse 90 04/06/24 07:00 Resp 15 04/06/24 07:00 BP 139/60 04/06/24 07:00 Pulse Ox 92 L 04/06/24 08:52 FiO2 Intake & Output 04/05/24 04/06/24 04/06/24 18:59 06:59 18:59 Intake Total 475 0 Balance 475 0 Intake: Oral 475 0 Other: Voiding Method Bedside Commode Bedside Commode # Voids 2 0 # Bowel Movements 0 - Exam No acute distress, oriented 3. Currently on 2 L of oxygen. Saturations are 95%. HEENT examination is grossly unremarkable. Mucous membranes are moist. No oral lesions. Neck supple. Full range of motion. No adenopathy thyromegaly or neck vein distention. Cardiovascular examination reveals regular rhythm rate. S1-S2 normal. No S3 or S4. No discernible murmur noted. Lungs reveal clear but diminished breath sounds. No wheezes. No rhonchi. No crackles. Breath sounds equal bilaterally. Saturations are 95%. Abdomen soft bowel sounds are heard. No masses or tenderness. Extremities are intact. No cyanosis clubbing or edema. Right knee wound is noted. Skin is without rash or lesion. Neurologic examination is brief but nonfocal. - Labs CBC & Chem 7: 04/05/24 02:28 04/05/24 02:28 Labs: Microbiology - Last 24 Hours (Table) 04/05/24 10:16 Gram Stain - Preliminary Knee - Right Wound Culture - Preliminary Presumptive Staph aureus Gram Neg Bacilli 04/03/24 14:49 Blood Culture - Preliminary Blood 04/02/24 20:33 Urine Culture - Final Urine,Voided Enterococcus faecalis Assessment and Plan Assessment: Acute blurred vision/double vision, currently being evaluated by the primary service. Chronic hypoxemic respiratory failure, secondary to COPD, stable, on home o xygen. Possible pneumonia, although the patient is not having any pneumonic symptoms. Enterococcus faecalis urinary tract infection. Right knee infection, secondary to gram-negative bacilli presumptive Staph aureus. Bipolar disorder with anxiety. Fibromyalgia. History of chronic tobacco dependence. Hypothyroidism. History of hypertension. History of marijuana use. Plan: Plan dated April 03, 2024. The patient is seen today room 618. The patient was admitted with a diagnosis of double vision/blurred vision. That is currently being evaluated by the primary service. CT scan of the brain, showed no acute cranial process. The CT scan of the brain is compared to one done on March 24. Also, the chest x- ray, as compared to the x-ray done on March 24. In my opinion, there is not much difference between the 2 x-rays. Nonetheless, the patient was placed on ce ftriaxone by the primary service. I have ordered a procalcitonin level to be done stat. If normal, the antibiotic should be discontinued. The patient is denying any pulmonary issues including shortness of breath, cough, wheezing, chest tightness, or phlegm production. She also denies any fever or chills. Plan dated April 06, 2024. The patient is stable from the pulmonary standpoint. She did not present with pulmonary complaints. She denied any worsening shortness of breath, cough, wh eezing, chest tightness, or phlegm production. She did have a urinary tract infection, secondary to Enterococcus faecalis. The right knee was cultured and showed evidence of presumptive staph, and gram-negative bacilli. She continues on Ancef. Infectious disease doctor is following. Prognosis is guarded. Time with Patient: Less than 30
[2024-04-06 11:52] LABS: Basophils # (A) 0.1 k/uL (0-0.2); Basophils % (A) 1 %; Eosinophils # (A) 0.1 k/uL (0-0.7); Eosinophils % (A) 1 %; HCT 35.9 % (34.0-46.0); HGB 11.5 gm/dL (11.4-16.0); Lymphocytes # (A) 2.1 k/uL (1.0-4.8); Lymphocytes % (A) 15 %; MCH 31.5 pg (25.0-35.0); MCV 98.3 fL (80.0-100.0); Mean Platelet Volume 6.9; Monocytes # (A) 0.7 k/uL (0-1.0); Monocytes % (A) 5 %; Neutrophils # (A) 10.5 k/uL (1.3-7.7); Neutrophils % (A) 76 %; Platelet Count 557 k/uL (150-450); RBC 3.65 m/uL (3.80-5.40); WBC 13.7 k/uL (3.8-10.6)
[2024-04-06 12:04] LABS: African American GFR (CKD) >90 (>60 ml/min/1.73 sqM); Anion Gap 0 mmol/L; Blood Urea Nitrogen 13 mg/dL (7-17); Calcium 9.6 mg/dL (8.4-10.2); Carbon Dioxide 36 mmol/L (22-30); Chloride 96 mmol/L (98-107); Glucose 93 mg/dL (74-99); Non-African American GFR(CKD) >90 (>60 ml/min/1.73 sqM); Potassium 4.8 mmol/L (3.5-5.1); Sodium 132 mmol/L (137-145)
[2024-04-06] MEDS: NICOTINE 14MG/24HR PATCH TRANSDERM SCH (13:31)
[2024-04-06] MEDS: KETOROLAC 15 MG/ML 1 ML VIAL IVP SCH (15:32)
--- NOTE | 2024-04-06 16:12 | P.PN ---
Subjective Progress Note Date: 04/05/24 Principal diagnosis: Reason for follow-up is right knee/leg laceration cellulitis Patient is a 68-year-old female with a past medical history significant for hypertension osteoarthritis fibromyalgia COPD heart failure asthma PE presenting to the hospital for double vision the patient also have recent fall with laceration to the right lower leg at the knee site that was stitched previously. On today's evaluation that is 04/05/2024,the patient denies any fever or any chills, patient is breathing comfortably on 2 L nasal oxygen, the patient denies chest pain shortness of breath and no significant cough, patient denies abdominal pain, no nausea vomiting or diarrhea. Patient denies any worsening pain to the right knee wound area Patient did have white count of 9.83, creatinine 0.5 Objective - Vital Signs Vital signs: Vital Signs Temp 98.4 F 04/05/24 07:10 Pulse 76 04/05/24 08:55 Resp 18 04/05/24 08:00 BP 172/76 04/05/24 07:10 Pulse Ox 96 04/05/24 08:58 FiO2 Intake & Output 04/04/24 04/05/24 04/05/24 18:59 06:59 18:59 Intake Total 422 Balance 422 Intake: Oral 422 Other: Voiding Method Bedside Commode Bedside Commode Bedside Commode # Voids 4 1 2 # Bowel Movements 0 - Exam GENERAL DESCRIPTION: An elderly female lying in bed in no distress RESPIRATORY SYSTEM: Unlabored breathing , decreased breath sounds at bases HEART: S1 S2 regular rate and rhythm , ABDOMEN: Soft , no tenderness EXTREMITIES: Right knee leg area did have area of skin necrosis minimal surrounding redness - Labs CBC & Chem 7: 04/06/24 11:25 04/06/24 11:25 Labs: Abnormal Lab Results - Last 24 Hours (Table) 04/05/24 04/05/24 04/05/24 Range/Units 02:28 02:28 03:45 RBC 3.57 L (4.10-5.20) X 10*6/uL Hgb 11.0 L (12.0-15.0) g/dL Hct 35.2 L (37.2-46.3) % MCV 98.6 H (80.0-97.0) FL MCHC 31.3 L (32.0-37.0) g/dL Plt Count 496 H (140-440) X 10*3/uL MPV 8.8 L (9.5-12.2) FL Immature Gran # 0.35 H (0.00-0.04) X 10*3/uL Monocytes # 1.12 H (0.20-1.00) X 10*3/uL Basophils # 0.17 H (0.00-0.10) X 10*3/uL Sodium 134 L (135-145) mmol/L Carbon Dioxide 32.5 H (21.6-31.8) mmol/L Creatinine 0.5 L (0.6-1.5) mg/dL Total Bilirubin <0.2 L (0.3-1.2) mg/dL Total Protein 5.0 L (6.2-8.2) g/dL Albumin 3.4 L (3.8-4.9) g/dL Urine Opiates Screen Detected H (NotDetected) U Benzodiazepines Scrn Detected H (NotDetected) U Marijuana (THC) Screen Detected H (NotDetected) Microbiology - Last 24 Hours (Table) 04/02/24 20:33 Urine Culture - Final Urine,Voided Enterococcus faecalis 04/03/24 14:49 Blood Culture - Preliminary Blood Assessment and Plan (1) Leg wound, right Current Visit: Yes Status: Acute Code(s): S81.801A - UNSPECIFIED OPEN WOUND, RIGHT LOWER LEG, INITIAL ENCOUNTER SNOMED Code(s): 33873499617706952 (2) Cellulitis of right leg Current Visit: Yes Status: Acute Code(s): L03.115 - CELLULITIS OF RIGHT LOWER LIMB SNOMED Code(s): 89261160608820343 (3) Allergy to multiple antibiotics Current Visit: No Status: Acute Code(s): Z88.1 - ALLERGY STATUS TO OTHER ANTIBIOTIC AGENTS SNOMED Code(s): 302808547 (4) Leukocytosis Current Visit: No Status: Acute Code(s): D72.829 - ELEVATED WHITE BLOOD CELL COUNT, UNSPECIFIED SNOMED Code(s): 682918259 Plan: 1patient with abnormal chest x-ray concerning for opacity and question of pneumonia however the patient denies any chest pain shortness of breath or cough no fever clinically doubt pneumonia possible atelectasis 2-patient also have a wound to the right lower extremity with some skin necrosis and surrounding cellulitis could be responsible for the elevated white count 3-patient with multiple antibiotic ALLERGIES that would limit the number of antibiotic safe to use 4-patient is currently waiting for vascular surgery evaluation and possible debridement of the necrotic skin to the right leg and deep cultures, continue with the cefazolin Dictation was produced using [employer] dictation software. please excuse any grammatical, word or spelling errors. Time with Patient: Less than 30
--- NOTE | 2024-04-06 16:13 | P.PN ---
Subjective Progress Note Date: 04/06/24 Principal diagnosis: Reason for follow-up is right knee/leg laceration cellulitis Patient is a 68-year-old female with a past medical history significant for hypertension osteoarthritis fibromyalgia COPD heart failure asthma PE presenting to the hospital for double vision the patient also have recent fall with laceration to the right lower leg at the knee site that was stitched previously. On today's evaluation that is 04/06/2024,the patient remains to be afebrile, patient is on 2 L nasal supplemental oxygen and denies any shortness of breath no chest pain or cough.Patient denies having any nausea or vomiting, no abdominal pain and no diarrhea has been reported, has been complaining of more pain to the right knee post debridement. Patient white count slightly up to 13.7, creatinine 0.53 local culture growing Staph aureus and Pseudomonas Objective - Vital Signs Vital signs: Vital Signs Temp 98.9 F 04/06/24 13:40 Pulse 86 04/06/24 13:40 Resp 18 04/06/24 13:40 BP 130/67 04/06/24 13:40 Pulse Ox 94 L 04/06/24 13:40 FiO2 Intake & Output 04/05/24 04/06/24 04/06/24 18:59 06:59 18:59 Intake Total 475 0 Balance 475 0 Intake: Oral 475 0 Other: Voiding Method Bedside Commode Bedside Commode # Voids 2 0 # Bowel Movements 0 - Exam GENERAL DESCRIPTION: An elderly female lying in bed in no distress RESPIRATORY SYSTEM: Unlabored breathing , decreased breath sounds at bases HEART: S1 S2 regular rate and rhythm , ABDOMEN: Soft , no tenderness EXTREMITIES: Right knee/leg area wound is currently dressed - Labs CBC & Chem 7: 04/06/24 11:25 04/06/24 11:25 Labs: Abnormal Lab Results - Last 24 Hours (Table) 04/06/24 04/06/24 Range/Units 11:25 11:25 WBC 13.7 H (3.8-10.6) k/uL RBC 3.65 L (3.80-5.40) m/uL Plt Count 557 H (150-450) k/uL Neutrophils # 10.5 H (1.3-7.7) k/uL Sodium 132 L (137-145) mmol/L Chloride 96 L (98-107) mmol/L Carbon Dioxide 36 H (22-30) mmol/L Microbiology - Last 24 Hours (Table) 04/05/24 10:16 Gram Stain - Preliminary Knee - Right Wound Culture - Preliminary Presumptive Staph aureus Pseudomonas aeruginosa 04/05/24 17:00 Gram Stain - Preliminary Knee - Right 04/03/24 14:49 Blood Culture - Preliminary Blood Assessment and Plan (1) Leg wound, right Current Visit: Yes Status: Acute Code(s): S81.801A - UNSPECIFIED OPEN WOUND, RIGHT LOWER LEG, INITIAL ENCOUNTER SNOMED Code(s): 98514057813756340 (2) Cellulitis of right leg Current Visit: Yes Status: Acute Code(s): L03.115 - CELLULITIS OF RIGHT LOWER LIMB SNOMED Code(s): 29636722343891389 (3) Allergy to multiple antibiotics Current Visit: No Status: Acute Code(s): Z88.1 - ALLERGY STATUS TO OTHER ANTIBIOTIC AGENTS SNOMED Code(s): 120977866 (4) Leukocytosis Current Visit: No Status: Acute Code(s): D72.829 - ELEVATED WHITE BLOOD CELL COUNT, UNSPECIFIED SNOMED Code(s): 131296830 Plan: 1patient with abnormal chest x-ray concerning for opacity and question of pneumonia however the patient denies any chest pain shortness of breath or cough no fever clinically doubt pneumonia possible atelectasis 2-patient also have a wound to the right lower extremity with some skin necrosis and surrounding cellulitis could be responsible for the elevated white count 3-patient with multiple antibiotic ALLERGIES that would limit the number of antibiotic safe to use 4-patient is status post vascular surgery evaluation and bedside e debridement of the necrotic skin, local culture now growing Staph aureus and Pseudomonas we will discontinue cefazolin start the patient cefepime while waiting for se nsitivity to finalize Dictation was produced using [employer] dictation software. please excuse any gram matical, word or spelling errors. Time with Patient: Less than 30
[2024-04-06] MEDS ORDERED: CEFEPIME 2 GM in SODIUM CHLORIDE 0.9% 100 ML IVPB SCH (16:15)
--- NOTE | 2024-04-06 16:50 | P.PCN ---
Description of Procedure: 68-year-old white female patient has history of trauma to right lower extremity we did debridement yesterday culture came back as a Pseudomonas and Enterococcus under care of infectious disease. Today will change the dressing no drainage noted will change her dressing using Santyl cream this should be changed on daily basis if patient goes home with follow-up with the wound clinic on Wednesday
[2024-04-06] MEDS: ACETAMINOPHEN TAB 325 MG TAB PO PRN (17:44)
[2024-04-06] MEDS: CEFEPIME 2 GM in SODIUM CHLORIDE 0.9% 100 ML IVPB SCH (20:17)
--- NOTE | 2024-04-06 22:28 | PN ---
PROGRESS NOTE DATE OF SERVICE: 04/06/2024 SUBJECTIVE: This is a 68-year-old woman, who was admitted with severe hyponatremia, also had multiple other medical issues including significant cellulitis also. No chest pain. No palpitation. Urine culture showed Enterococcus faecalis, which is vancomycin sensitive and wound culture showed presumptive Staph and gram-negative bacilli. OBJECTIVE: VITAL SIGNS: Pulse is 90, blood pressure 139/62, respirations 15. CHEST: A few scattered rhonchi and crackles. ABDOMEN: Soft. NERVOUS SYSTEM: Nonfocal. LABORATORY DATA: WBC 13.7. Sodium 132. ASSESSMENT: 1. Severe hyponatremia, possibly hypovolemic hyponatremia. 2. Significant cellulitis and necrotic skin on the right knee area with presumptive Staph aureus and gram-negative bacilli, status post debridement. 3. Enterococcus faecalis from the urine. 4. Generalized aches and pains. 5. Generalized weakness. 6. Chronic obstructive pulmonary disease. 7. Multiple complex medical issues. RECOMMENDATIONS: Recommend to continue current management and continue symptomatic treatment. Otherwise, I would recommend continue with current medications. Monitor WBC, antibiotics. Closely follow with Infectious Disease, Surgery and further recommendations to follow. MMODL / IJN: [id number] /
[2024-04-07 08:56] LABS: Basophils # (A) 0.12 X 10*3/uL (0.00-0.10); Basophils % (A) 0.8 %; Eosinophils # (A) 0.17 X 10*3/uL (0.04-0.35); Eosinophils % (A) 1.1 %; HCT 36.8 % (37.2-46.3); HGB 11.5 g/dL (12.0-15.0); Lymphocytes # (A) 2.66 X 10*3/uL (0.90-5.00); Lymphocytes % (A) 17.9 %; MCH 31.2 pg (27.0-32.0); MCHC 31.3 g/dL (32.0-37.0); MCV 99.7 FL (80.0-97.0); Mean Platelet Volume 8.8 FL (9.5-12.2); Monocytes # (A) 1.37 X 10*3/uL (0.20-1.00); Monocytes % (A) 9.2 %; NRBC Per 100 WBC 0 X 10*3/uL (0.00-0.01); Neutrophils # (A) 10.36 X 10*3/uL (1.80-7.70); Neutrophils % (A) 69.7 %; Platelet Count 522 X 10*3/uL (140-440); RBC 3.69 X 10*6/uL (4.10-5.20); RDW 13.6 % (11.5-14.5); WBC 14.87 X 10*3/uL (4.50-10.00)
[2024-04-07 09:34] LABS: BUN/Creat Ratio 37.67 Ratio (12.00-20.00); Blood Urea Nitrogen 22.6 mg/dL (9.0-27.0); Calcium 9.7 mg/dL (8.7-10.3); Carbon Dioxide 31.1 mmol/L (21.6-31.8); Chloride 98 mmol/L (96-109); Glucose 85 mg/dL (70-110); Sodium 136 mmol/L (135-145)
[2024-04-07] MEDS ORDERED: VANCOMYCIN IV PER PHARMACY 1 EACH MISC MISCELLANE PRN (11:10)
[2024-04-07] MEDS: VANCOMYCIN 1,250 MG in SODIUM CHLORIDE 0.9% 250 ML IVPB SCH (11:47)
--- NOTE | 2024-04-07 13:18 | P.PN ---
Progress Note - Text 68-year-old white female patient had a traumatic wound right lower extremity with flap necrosis we did the debridement patient is an IV antibiotic under care of infectious disease final report wound debridement came back as a methicillin resistant Staph aureus Pseudomonas aeruginosa we changed the dressing today base of the wound is clean and granulating no discharge noted we change the dressing with Santyl cream. We will continue with Santyl cream and follow-up next week wound clinic
--- NOTE | 2024-04-07 13:35 | P.PN ---
Subjective Progress Note Date: 04/07/24 Principal diagnosis: Urinary tract infection. 68-year-old female who was seen in the emergency department, on April 01. She apparently came there because of blurred vision. She apparently was having double vision, and she states that she was told that she should go to the emergency room, to have it evaluated. We are consulted, because a chest x-ray shows some patchy infiltrates, and there was concern for pneumonia. I asked the patient specifically if she was having any lung issues, and she said no. She denied any shortness of breath, cough, wheezing, chest tightness, or phlegm production. She is on 3 L of oxygen, because of her underlying COPD. She does have a history of COPD, asthma, heart failure, fibromyalgia, GERD, hypertension, pulmonary embolism, and hypothyroidism, among other things. Current laboratory data includes a white count of 11.9, hemoglobin 11.4, hematocrit 35.9, and a platelet count of 542,000. Sodium 134, potassium 4.5, chlorides 98, CO2 28, BUN 11, creatinine 0.4. Calcium 9.4, TSH is elevated at 8.240. N-terminal proBNP was 1590 on admission. Urine is essentially negative. A chest x-ray was done, compared to the x-ray that was done on March 24. There is elevation of the left hemidiaphragm. Allowing for technical differences, I do not see much change between the 2 x-rays. The patient is currently on Rocephin. She is also receiving Symbicort, and albuterol, as well as DuoNeb. Stat procalcitonin level was ordered. The patient is seen today April 04, 2024 in follow-up on the regular medical floor. She is currently sitting up in bed. Awake and alert in no acute distress. She is doing much better today emotionally than compared to yesterday. She is maintaining good O2 saturations in the 90s on 2 L/min per nasal cannula. She did have a CT angiogram that ruled out pulmonary embolism. Procalcitonin was negative at 0.22. White count 10.9. Hemoglobin 12.1. Platelets 593. Sodium 135. Potassium 4.9. Bicarb 31. BUN 9. Creatinine 0.5. Glucose 79. She remains on DuoNeb inhalations, Singulair, Symbicort Lovenox for DVT prophylaxis. The patient is seen today April 05, 2024 in follow-up on the regular medical floor. She is resting comfortably in bed. Awake and alert in no acute distress . Denies any worsening shortness of breath, cough or congestion. She is maintaining O2 saturations in the 90s on 2 L/min per nasal cannula. Her urine culture is positive for group D Enterococcus. Blood culture pending. White count 9.8. Hemoglobin 11.0. Platelets 496. Sodium 134. Potassium 4.6. Bicarb 33. BUN 10. Creatinine 0.5. Glucose 84. Her urine drug screen was positive for opiates, benzodiazepines and marijuana. Progress note dated April 06, 2024. The patient is seen today in room 618. She continues on oxygen at 2 L. Saturations are 95%. She is not receiving any IV fluids. She is not having any respiratory issues. Her urine was positive for Enterococcus faecalis. She is currently on Ancef. No new labs today. Labs from April 05 have been reviewed. She did have cultures, from the right knee wound, which show evidence of presumptive Staph aureus, and gram-negative bacilli. Infectious disease reporting process consultant is following. Progress note dated April 07, 2024. 68-year-old female seen in room 618. The patient continues on oxygen at 2 L, with saturations of 99%. Her urine showed evidence of Enterococcus faecalis. Her right knee culture show evidence of Staph aureus and Pseudomonas. She continues on cefepime. Infectious disease doctor is following. From the pulmonary standpoint, she is stable. She denies any worsening or more severe shortness of breath, cough, wheezing, chest tightness, or phlegm production. Her white count is 14.9, hemoglobin 11.5, hematocrit 36.8, and platelet count 522,000. Sodium 136, potassium 5, chlorides 98, CO2 31, BUN 23, and creatinine 0.6. Calcium is 9.7. Vancomycin has now been added by the ID doctor. Objective - Vital Signs Vital signs: Vital Signs Temp 98.8 F 04/07/24 12:52 Pulse 97 04/07/24 12:52 Resp 18 04/07/24 12:52 BP 124/64 04/07/24 12:52 Pulse Ox 97 04/07/24 12:52 FiO2 Intake & Output 04/06/24 04/07/24 04/07/24 18:59 06:59 18:59 Intake Total 0 360 0 Balance 0 360 0 Intake: Oral 0 360 0 Other: Voiding Method Bedside Commode # Voids 1 2 4 # Bowel Movements 0 0 - Exam No acute distress, oriented 3. Currently on 2 L of oxygen. Saturations are 95%. HEENT examination is grossly unremarkable. Mucous membranes are moist. No oral lesions. Neck supple. Full range of motion. No adenopathy thyromegaly or neck vein distention. Cardiovascular examination reveals regular rhythm rate. S1-S2 normal. No S3 or S4. No discernible murmur noted. Lungs reveal clear but diminished breath sounds. No wheezes. No rhonchi. No crackles. Breath sounds equal bilaterally. Saturations are 95%. Abdomen soft bowel sounds are heard. No masses or tenderness. Extremities are intact. No cyanosis clubbing or edema. Right knee wound is noted. Skin is without rash or lesion. Neurologic examination is brief but nonfocal. - Labs CBC & Chem 7: 04/07/24 04:58 04/07/24 04:58 Labs: Abnormal Lab Results - Last 24 Hours (Table) 04/07/24 04/07/24 Range/Units 04:58 04:58 WBC 14.87 H (4.50-10.00) X 10*3/uL RBC 3.69 L (4.10-5.20) X 10*6/uL Hgb 11.5 L (12.0-15.0) g/dL Hct 36.8 L (37.2-46.3) % MCV 99.7 H (80.0-97.0) FL MCHC 31.3 L (32.0-37.0) g/dL Plt Count 522 H (140-440) X 10*3/uL MPV 8.8 L (9.5-12.2) FL Immature Gran # 0.19 H (0.00-0.04) X 10*3/uL Neutrophils # 10.36 H (1.80-7.70) X 10*3/uL Monocytes # 1.37 H (0.20-1.00) X 10*3/uL Basophils # 0.12 H (0.00-0.10) X 10*3/uL BUN/Creatinine Ratio 37.67 H (12.00-20.00) Ratio Microbiology - Last 24 Hours (Table) 04/05/24 10:16 Gram Stain - Final Knee - Right Wound Culture - Final Methicillin resist S. aureus Pseudomonas aeruginosa 04/03/24 14:49 Blood Culture - Preliminary Blood 04/05/24 17:00 Gram Stain - Preliminary Knee - Right Tissue Culture - Preliminary Presumptive Staph aureus Pseudomonas aeruginosa Assessment and Plan Assessment: Acute blurred vision/double vision, currently being evaluated by the primary service. Chronic hypoxemic respiratory failure, secondary to COPD, stable, on home oxygen. Possible pneumonia, although the patient is not having any pneumonic symptoms. Enterococcus faecalis urinary tract infection. Right knee infection, secondary to Pseudomonas aeruginosa, and methicillin- resistant Staph aureus. Bipolar disorder with anxiety. Fibromyalgia. History of chronic tobacco dependence. Hypothyroidism. History of hypertension. History of marijuana use. Plan: Plan dated April 03, 2024. The patient is seen today room 618. The patient was admitted with a diagnosis of double vision/blurred vision. That is currently being evaluated by the primary service. CT scan of the brain, showed no acute cranial process. The CT scan of the brain is compared to one done on March 24. Also, the chest x-r ay, as compared to the x-ray done on March 24. In my opinion, there is not much difference between the 2 x-rays. Nonetheless, the patient was placed on ceftriaxone by the primary service. I have ordered a procalcitonin level to be done stat. If normal, the antibiotic should be discontinued. The patient is denying any pulmonary issues including shortness of breath, cough, wheezing, chest tightness, or phlegm production. She also denies any fever or chills. Plan dated April 06, 2024. The patient is stable from the pulmonary standpoint. She did not present with pulmonary complaints. She denied any worsening shortness of breath, cough, wheezing, chest tightness, or phlegm production. She did have a urinary tract infection, secondary to Enterococcus faecalis. The right knee was cultured and showed evidence of presumptive staph, and gram-negative bacilli. She continues on Ancef. Infectious disease doctor is following. Prognosis is guarded. Plan dated April 15, 2024. The patient continues on cefepime, with vancomycin recently added, for the right knee wound, and the urinary tract infection. Labs, x-rays, and medications are reviewed. Her 2 L saturation is 99%. She is not having any issues with her lungs currently. She denies any worsening or more severe shortness of breath, cough, wheezing, chest tightness, or phlegm production. Labs, x-rays, and all m edications are reviewed. We will continue to follow along and make recommendations where appropriate. Time with Patient: Less than 30
--- NOTE | 2024-04-07 14:31 | PN ---
PROGRESS NOTE DATE OF SERVICE: 04/07/2024 SUBJECTIVE: This is a 68-year-old woman, who was admitted with severe hyponatremia, also had multiple medical issues including significant cellulitis and necrotic skin also. Multiple organisms are growing from the culture. Final report is pending. The patient had debridement. OBJECTIVE: VITAL SIGNS: Pulse is 97, blood pressure 120/64, respirations 18. CHEST: A few scattered rhonchi. ABDOMEN: Soft, nontender. LEGS: Right leg cellulitis. NERVOUS SYSTEM: Nonfocal. LABORATORY DATA: WBC 14.87. ASSESSMENT: 1. Severe hyponatremia, possibly hypovolemic hyponatremia on admission. 2. Significant cellulitis and necrotic skin on the right knee with presumptive Staph aureus and Pseudomonas aeruginosa. 3. Enterococcus faecalis, vancomycin sensitive from the urine. 4. Generalized aches and pains. 5. Generalized weakness. 6. Chronic obstructive pulmonary disease. 7. Multiple complex medical issues. RECOMMENDATIONS: Recommend to continue current medications, continue symptomatic treatment. Otherwise, at this time, I would recommend continue with the IV Ativan for anxiety. Otherwise, pain management, antibiotics. Await final ID. Guarded prognosis. Further recommendations to follow. MMODL / IJN: [id number] /
--- NOTE | 2024-04-07 15:07 | P.PN ---
Subjective Progress Note Date: 04/07/24 Principal diagnosis: Reason for follow-up is right knee/leg laceration cellulitis Patient is a 68-year-old female with a past medical history significant for hypertension osteoarthritis fibromyalgia COPD heart failure asthma PE presenting to the hospital for double vision the patient also have recent fall with laceration to the right lower leg at the knee site that was stitched previously. On today's evaluation that is 04/07/2024, the patient continues to be afebrile, the patient is on 2 L nasal cannula oxygen and breathing comfortably, the Pt denies having any chest pain or cough, the patient denies having any abdominal pain no vomiting or any diarrhea pain to the right leg knee area has decreased in intensity. Patient white count is 14.87, creatinine 0.6 local culture growing MRSA and drug-resistant Pseudomonas Objective - Vital Signs Vital signs: Vital Signs Temp 98.2 F 04/07/24 07:10 Pulse 83 04/07/24 07:10 Resp 17 04/07/24 07:10 BP 163/68 04/07/24 07:10 Pulse Ox 97 04/07/24 09:04 FiO2 Intake & Output 04/06/24 04/07/24 04/07/24 18:59 06:59 18:59 Intake Total 0 360 0 Balance 0 360 0 Intake: Oral 0 360 0 Other: Voiding Method Bedside Commode # Voids 1 2 # Bowel Movements 0 - Exam GENERAL DESCRIPTION: An elderly female lying in bed in no distress RESPIRATORY SYSTEM: Unlabored breathing , decreased breath sounds at bases HEART: S1 S2 regular rate and rhythm , ABDOMEN: Soft , no tenderness EXTREMITIES: Right knee/leg area wound is currently dressed - Labs CBC & Chem 7: 04/07/24 04:58 04/07/24 04:58 Labs: Abnormal Lab Results - Last 24 Hours (Table) 04/06/24 04/06/24 04/07/24 Range/Units 11:25 11:25 04:58 WBC 13.7 H 14.87 H (3.8-10.6) k/uL RBC 3.65 L 3.69 L (3.80-5.40) m/uL Hgb 11.5 L (12.0-15.0) g/dL Hct 36.8 L (37.2-46.3) % MCV 99.7 H (80.0-97.0) FL MCHC 31.3 L (32.0-37.0) g/dL Plt Count 557 H 522 H (150-450) k/uL MPV 8.8 L (9.5-12.2) FL Immature Gran # 0.19 H (0.00-0.04) X 10*3/uL Neutrophils # 10.5 H 10.36 H (1.3-7.7) k/uL Monocytes # 1.37 H (0.20-1.00) X 10*3/uL Basophils # 0.12 H (0.00-0.10) X 10*3/uL Sodium 132 L (137-145) mmol/L Chloride 96 L (98-107) mmol/L Carbon Dioxide 36 H (22-30) mmol/L BUN/Creatinine Ratio (12.00-20.00) Ratio 04/07/24 Range/Units 04:58 WBC (3.8-10.6) k/uL RBC (3.80-5.40) m/uL Hgb (12.0-15.0) g/dL Hct (37.2-46.3) % MCV (80.0-97.0) FL MCHC (32.0-37.0) g/dL Plt Count (150-450) k/uL MPV (9.5-12.2) FL Immature Gran # (0.00-0.04) X 10*3/uL Neutrophils # (1.3-7.7) k/uL Monocytes # (0.20-1.00) X 10*3/uL Basophils # (0.00-0.10) X 10*3/uL Sodium (137-145) mmol/L Chloride (98-107) mmol/L Carbon Dioxide (22-30) mmol/L BUN/Creatinine Ratio 37.67 H (12.00-20.00) Ratio Microbiology - Last 24 Hours (Table) 04/05/24 10:16 Gram Stain - Final Knee - Right Wound Culture - Final Methicillin resist S. aureus Pseudomonas aeruginosa 04/03/24 14:49 Blood Culture - Preliminary Blood 04/05/24 17:00 Gram Stain - Preliminary Knee - Right Tissue Culture - Preliminary Presumptive Staph aureus Pseudomonas aeruginosa Assessment and Plan (1) Leg wound, right Current Visit: Yes Status: Acute Code(s): S81.801A - UNSPECIFIED OPEN WOUND, RIGHT LOWER LEG, INITIAL ENCOUNTER SNOMED Code(s): 83933051968265349 (2) Cellulitis of right leg Current Visit: Yes Status: Acute Code(s): L03.115 - CELLULITIS OF RIGHT LOWER LIMB SNOMED Code(s): 13582052016295892 (3) Allergy to multiple antibiotics Current Visit: No Status: Acute Code(s): Z88.1 - ALLERGY STATUS TO OTHER ANTIBIOTIC AGENTS SNOMED Code(s): 662323595 (4) Leukocytosis Current Visit: No Status: Acute Code(s): D72.829 - ELEVATED WHITE BLOOD CELL COUNT, UNSPECIFIED SNOMED Code(s): 662012637 Plan: 1patient with abnormal chest x-ray concerning for opacity and question of pneumonia however the patient denies any chest pain shortness of breath or cough no fever clinically doubt pneumonia possible atelectasis 2-patient also have a wound to the right lower extremity with some skin necrosis and surrounding cellulitis could be responsible for the elevated white count 3-patient with multiple antibiotic ALLERGIES that would limit the number of antibiotic safe to use 4-patient is status post vascular surgery evaluation and bedside e debridement of the necrotic skin, 4-cultures are growing MRSA and drug-resistant Pseudomonas aeruginosa we will discontinue cefepime add vancomycin to cover for the MRSA and Zerbaxa to cover for the Pseudomonas will discuss with the micro lab to check sensitivity of the Pseudomonas to Zerbaxa Dictation was produced using [employer] dictation software. please excuse any grammatical, word or spelling errors. Time with Patient: Greater than 30
[2024-04-07] MEDS: CEFTOLOZANE/TAZOBACTAM 3 GM in SODIUM CHLORIDE 0.9% 100 ML IV SCH (17:00)
--- NOTE | 2024-04-08 07:03 | P.PN ---
Subjective Progress Note Date: 04/08/24 Principal diagnosis: Urinary tract infection. 68-year-old female who was seen in the emergency department, on April 01. She apparently came there because of blurred vision. She apparently was having double vision, and she states that she was told that she should go to the emergency room, to have it evaluated. We are consulted, because a chest x-ray shows some patchy infiltrates, and there was concern for pneumonia. I asked the patient specifically if she was having any lung issues, and she said no. She denied any shortness of breath, cough, wheezing, chest tightness, or phlegm production. She is on 3 L of oxygen, because of her underlying COPD. She does have a history of COPD, asthma, heart failure, fibromyalgia, GERD, hypertension, pulmonary embolism, and hypothyroidism, among other things. Current laboratory data includes a white count of 11.9, hemoglobin 11.4, hematocrit 35.9, and a platelet count of 542,000. Sodium 134, potassium 4.5, chlorides 98, CO2 28, BUN 11, creatinine 0.4. Calcium 9.4, TSH is elevated at 8.240. N-terminal proBNP was 1590 on admission. Urine is essentially negative. A chest x-ray was done, compared to the x-ray that was done on March 24. There is elevation of the left hemidiaphragm. Allowing for technical differences, I do not see much change between the 2 x-rays. The patient is currently on Rocephin. She is also receiving Symbicort, and albuterol, as well as DuoNeb. Stat procalcitonin level was ordered. The patient is seen today April 04, 2024 in follow-up on the regular medical floor. She is currently sitting up in bed. Awake and alert in no acute distress. She is doing much better today emotionally than compared to yesterday. She is maintaining good O2 saturations in the 90s on 2 L/min per nasal cannula. She did have a CT angiogram that ruled out pulmonary embolism. Procalcitonin was negative at 0.22. White count 10.9. Hemoglobin 12.1. Platelets 593. Sodium 135. Potassium 4.9. Bicarb 31. BUN 9. Creatinine 0.5. Glucose 79. She remains on DuoNeb inhalations, Singulair, Symbicort Lovenox for DVT prophylaxis. The patient is seen today April 05, 2024 in follow-up on the regular medical floor. She is resting comfortably in bed. Awake and alert in no acute distress . Denies any worsening shortness of breath, cough or congestion. She is maintaining O2 saturations in the 90s on 2 L/min per nasal cannula. Her urine culture is positive for group D Enterococcus. Blood culture pending. White count 9.8. Hemoglobin 11.0. Platelets 496. Sodium 134. Potassium 4.6. Bicarb 33. BUN 10. Creatinine 0.5. Glucose 84. Her urine drug screen was positive for opiates, benzodiazepines and marijuana. Progress note dated April 06, 2024. The patient is seen today in room 618. She continues on oxygen at 2 L. Saturations are 95%. She is not receiving any IV fluids. She is not having any respiratory issues. Her urine was positive for Enterococcus faecalis. She is currently on Ancef. No new labs today. Labs from April 05 have been reviewed. She did have cultures, from the right knee wound, which show evidence of presumptive Staph aureus, and gram-negative bacilli. Infectious disease behavioral consultant is following. Progress note dated April 07, 2024. 68-year-old female seen in room 618. The patient continues on oxygen at 2 L, with saturations of 99%. Her urine showed evidence of Enterococcus faecalis. Her right knee culture show evidence of Staph aureus and Pseudomonas. She continues on cefepime. Infectious disease doctor is following. From the pulmonary standpoint, she is stable. She denies any worsening or more severe shortness of breath, cough, wheezing, chest tightness, or phlegm production. Her white count is 14.9, hemoglobin 11.5, hematocrit 36.8, and platelet count 522,000. Sodium 136, potassium 5, chlorides 98, CO2 31, BUN 23, and creatinine 0.6. Calcium is 9.7. Vancomycin has now been added by the ID doctor. Progress note dated April 08, 2024. 68-year-old female seen in room 618. Currently, the patient is on saline at 10 cc an hour. She is getting O2 at 2 L. The patient had evidence of a right knee infection, with Pseudomonas aeruginosa, and methicillin-resistant Staph aureus. In addition, she had a urinary tract infection with Enterococcus faecalis. She is currently on vancomycin, and Zerbaxa. No new labs today. Labs from April 07 have been reviewed. Objective - Vital Signs Vital signs: Vital Signs Temp 98.6 F 04/08/24 01:48 Pulse 69 04/08/24 01:48 Resp 18 04/08/24 01:48 BP 135/76 04/08/24 01:48 Pulse Ox 95 04/08/24 01:48 FiO2 Intake & Output 04/07/24 04/08/24 04/08/24 18:59 06:59 18:59 Intake Total 0 Output Total 400 Balance 0 -400 Intake: Oral 0 Output: Urine 400 Other: Voiding Method Bedside Commode # Voids 4 1 # Bowel Movements 0 0 - Exam No acute distress, oriented 3. Currently on 2 L of oxygen. Saturations are 95%. HEENT examination is grossly unremarkable. Mucous membranes are moist. No oral lesions. Neck supple. Full range of motion. No adenopathy thyromegaly or neck vein distention. Cardiovascular examination reveals regular rhythm rate. S1-S2 normal. No S3 or S4. No discernible murmur noted. Lungs reveal clear but diminished breath sounds. No wheezes. No rhonchi. No crackles. Breath sounds equal bilaterally. Saturations are 95%. Abdomen soft bowel sounds are heard. No masses or tenderness. Extremities are intact. No cyanosis clubbing or edema. Right knee wound is noted. Skin is without rash or lesion. Neurologic examination is brief but nonfocal. - Labs CBC & Chem 7: 04/07/24 04:58 04/07/24 04:58 Labs: Abnormal Lab Results - Last 24 Hours (Table) 04/07/24 04/07/24 Range/Units 04:58 04:58 WBC 14.87 H (4.50-10.00) X 10*3/uL RBC 3.69 L (4.10-5.20) X 10*6/uL Hgb 11.5 L (12.0-15.0) g/dL Hct 36.8 L (37.2-46.3) % MCV 99.7 H (80.0-97.0) FL MCHC 31.3 L (32.0-37.0) g/dL Plt Count 522 H (140-440) X 10*3/uL MPV 8.8 L (9.5-12.2) FL Immature Gran # 0.19 H (0.00-0.04) X 10*3/uL Neutrophils # 10.36 H (1.80-7.70) X 10*3/uL Monocytes # 1.37 H (0.20-1.00) X 10*3/uL Basophils # 0.12 H (0.00-0.10) X 10*3/uL BUN/Creatinine Ratio 37.67 H (12.00-20.00) Ratio Microbiology - Last 24 Hours (Table) 04/05/24 17:00 Anaerobic Culture - Preliminary Knee - Right 04/05/24 17:00 Gram Stain - Final Knee - Right Tissue Culture - Final Methicillin resist S. aureus Pseudomonas aeruginosa 04/05/24 10:16 Gram Stain - Final Knee - Right Wound Culture - Final Methicillin resist S. aureus Pseudomonas aeruginosa Assessment and Plan Assessment: Acute blurred vision/double vision, currently being evaluated by the primary service. Chronic hypoxemic respiratory failure, secondary to COPD, stable, on home oxygen. Possible pneumonia, although the patient is not having any pneumonic symptoms. Enterococcus faecalis urinary tract infection. Right knee infection, secondary to Pseudomonas aeruginosa, and methicillin- resistant Staph aureus. Bipolar disorder with anxiety. Fibromyalgia. History of chronic tobacco dependence. Hypothyroidism. History of hypertension. History of marijuana use. Plan: Plan dated April 03, 2024. The patient is seen today room 618. The patient was admitted with a diagnosis of double vision/blurred vision. That is currently being evaluated by the primary service. CT scan of the brain, showed no acute cranial process. The CT scan of the brain is compared to one done on March 24. Also, the chest x- ray, as compared to the x-ray done on March 24. In my opinion, there is not much difference between the 2 x-rays. Nonetheless, the patient was placed on ceftriaxone by the primary service. I have ordered a procalcitonin level to be done stat. If normal, the antibiotic should be discontinued. The patient is denying any pulmonary issues including shortness of breath, cough, wheezing, chest tightness, or phlegm production. She also denies any fever or chills. Plan dated April 06, 2024. The patient is stable from the pulmonary standpoint. She did not present with pulmonary complaints. She denied any worsening shortness of breath, cough, wheezing, chest tightness, or phlegm production. She did have a urinary tract infection, secondary to Enterococcus faecalis. The right knee was cultured and showed evidence of presumptive staph, and gram-negative bacilli. She continues on Ancef. Infectious disease doctor is following. Prognosis is guarded. Plan dated April 15, 2024. The patient continues on cefepime, with vancomycin recently added, for the right knee wound, and the urinary tract infection. Labs, x-rays, and medications are reviewed. Her 2 L saturation is 99%. She is not having any issues with her lungs currently. She denies any worsening or more severe shortness of breath, cough, wheezing, chest tightness, or phlegm production. Labs, x-rays, and all medications are reviewed. We will continue to follow along and make recommendations where appropriate. Plan dated April 08, 2024. The patient is seen today in room 618. She continues on saline at 10 cc an hour. She is getting nasal O2 at 2 L. Her urine screen was positive for E nterococcus faecalis. In addition, her right knee wound, tested positive for Pseudomonas aeruginosa and methicillin-resistant Staph aureus. She continues on vancomycin and Zerbaxa. She is being followed by infectious diseases. The patient is stable from the pulmonary standpoint. She denies any increasing or worsening shortness of breath, cough, wheezing, chest tightness, or phlegm production. Time with Patient: Less than 30
[2024-04-08 09:16] LABS: Basophils # (A) 0.12 X 10*3/uL (0.00-0.10); Eosinophils # (A) 0.16 X 10*3/uL (0.04-0.35); Eosinophils % (A) 1.4 %; HCT 32.3 % (37.2-46.3); Lymphocytes # (A) 1.77 X 10*3/uL (0.90-5.00); Lymphocytes % (A) 15.4 %; MCH 31.9 pg (27.0-32.0); MCV 103.2 FL (80.0-97.0); Mean Platelet Volume 8.8 FL (9.5-12.2); Monocytes # (A) 1.02 X 10*3/uL (0.20-1.00); Monocytes % (A) 8.9 %; NRBC Per 100 WBC 0 X 10*3/uL (0.00-0.01); Neutrophils # (A) 8.27 X 10*3/uL (1.80-7.70); Neutrophils % (A) 71.8 %; Platelet Count 458 X 10*3/uL (140-440); RBC 3.13 X 10*6/uL (4.10-5.20); RDW 13.7 % (11.5-14.5); WBC 11.51 X 10*3/uL (4.50-10.00)
[2024-04-08 10:02] LABS: BUN/Creat Ratio 43.29 Ratio (12.00-20.00); Blood Urea Nitrogen 30.3 mg/dL (9.0-27.0); Calcium 9.1 mg/dL (8.7-10.3); Carbon Dioxide 30.1 mmol/L (21.6-31.8); Chloride 104 mmol/L (96-109); Glucose 182 mg/dL (70-110); Potassium 4.9 mmol/L (3.5-5.5); Sodium 139 mmol/L (135-145)
--- NOTE | 2024-04-08 16:03 | P.PN ---
Subjective Progress Note Date: 04/08/24 Principal diagnosis: Reason for follow-up is right knee/leg laceration cellulitis Patient is a 68-year-old female with a past medical history significant for hypertension osteoarthritis fibromyalgia COPD heart failure asthma PE presenting to the hospital for double vision the patient also have recent fall with laceration to the right lower leg at the knee site that was stitched previously. On today's evaluation that is 04/08/2024, Patient is afebrile patient is cur rently on 2 L nasal cannula oxygen and denies having any shortness of breath, the patient denies any chest pain or cough, the patient denies any nausea vomiting did not have any abdominal pain and no diarrhea, the patient pain to the right leg is currently controlled. The patient white count is down to 11.51, creatinine 0.7 Objective - Vital Signs Vital signs: Vital Signs Temp 98.9 F 04/08/24 14:00 Pulse 90 04/08/24 14:00 Resp 16 04/08/24 14:00 BP 117/50 04/08/24 14:00 Pulse Ox 95 04/08/24 14:00 FiO2 Intake & Output 04/07/24 04/08/24 04/08/24 18:59 06:59 18:59 Intake Total 0 Output Total 400 Balance 0 -400 Intake: Oral 0 Output: Urine 400 Other: Voiding Method Bedside Commode Bedside Commode # Voids 4 1 # Bowel Movements 0 0 - Exam GENERAL DESCRIPTION: An elderly female lying in bed in no distress RESPIRATORY SYSTEM: Unlabored breathing , decreased breath sounds at bases HEART: S1 S2 regular rate and rhythm , ABDOMEN: Soft , no tenderness EXTREMITIES: Right knee/leg area wound is currently dressed - Labs CBC & Chem 7: 04/08/24 02:48 04/08/24 02:48 Labs: Abnormal Lab Results - Last 24 Hours (Table) 04/08/24 04/08/24 Range/Units 02:48 02:48 WBC 11.51 H (4.50-10.00) X 10*3/uL RBC 3.13 L (4.10-5.20) X 10*6/uL Hgb 10.0 L (12.0-15.0) g/dL Hct 32.3 L (37.2-46.3) % MCV 103.2 H (80.0-97.0) FL MCHC 31.0 L (32.0-37.0) g/dL Plt Count 458 H (140-440) X 10*3/uL MPV 8.8 L (9.5-12.2) FL Immature Gran # 0.17 H (0.00-0.04) X 10*3/uL Neutrophils # 8.27 H (1.80-7.70) X 10*3/uL Monocytes # 1.02 H (0.20-1.00) X 10*3/uL Basophils # 0.12 H (0.00-0.10) X 10*3/uL BUN 30.3 H (9.0-27.0) mg/dL BUN/Creatinine Ratio 43.29 H (12.00-20.00) Ratio Glucose 182 H (70-110) mg/dL Microbiology - Last 24 Hours (Table) 04/05/24 17:00 Anaerobic Culture - Preliminary Knee - Right 04/05/24 17:00 Gram Stain - Final Knee - Right Tissue Culture - Final Methicillin resist S. aureus Pseudomonas aeruginosa Assessment and Plan (1) Leg wound, right Current Visit: Yes Status: Acute Code(s): S81.801A - UNSPECIFIED OPEN WOUND, RIGHT LOWER LEG, INITIAL ENCOUNTER SNOMED Code(s): 89063166802655149 (2) Cellulitis of right leg Current Visit: Yes Status: Acute Code(s): L03.115 - CELLULITIS OF RIGHT LOWER LIMB SNOMED Code(s): 76406402748412192 (3) Allergy to multiple antibiotics Current Visit: No Status: Acute Code(s): Z88.1 - ALLERGY STATUS TO OTHER ANTIBIOTIC AGENTS SNOMED Code(s): 576248570 (4) Leukocytosis Current Visit: No Status: Acute Code(s): D72.829 - ELEVATED WHITE BLOOD CELL COUNT, UNSPECIFIED SNOMED Code(s): 857939861 Plan: 1patient with abnormal chest x-ray concerning for opacity and question of pneumonia however the patient denies any chest pain shortness of breath or cough no fever clinically doubt pneumonia possible atelectasis 2-patient also have a wound to the right lower extremity with some skin necrosis and surrounding cellulitis could be responsible for the elevated white count 3-patient with multiple antibiotic ALLERGIES that would limit the number of antibiotic safe to use 4-patient is status post vascular surgery evaluation and bedside e debridement of the necrotic skin, 4-cultures are growing MRSA and drug-resistant Pseudomonas aeruginosa patient to continue with MRSA and Zerbaxa to cover for the Pseudomonas, did discussed with the micro lab to check sensitivity of the Pseudomonas to Zerbaxa, patient white count is trending down with addition of Zerbaxa yesterday Dictation was produced using [employer] dictation software. please excuse any grammatical, word or spelling errors. Time with Patient: Less than 30
--- NOTE | 2024-04-08 20:04 | PN ---
PROGRESS NOTE DATE OF SERVICE: 04/08/2024 SUBJECTIVE: This is a 68-year-old woman who was admitted with severe hyponatremia, also had multiple other medical problems including significant cellulitis. The patient is complaining of abdominal pain and anxiety and multiple complex medical issues also. The patient has some gait dysfunction also. White count is still elevated at 11.51, as mentioned earlier. The wound culture showed MRSA and as well as Pseudomonas aeruginosa, which is rather resistant also. Urine culture showed enterococcus faecalis. PAST MEDICAL HISTORY: Reviewed. REVIEW OF SYSTEMS: A 14-point review is negative except as mentioned earlier. CURRENT MEDICATIONS: Reviewed include ceftolozane and tazobactam. Rest of medications reviewed. PHYSICAL EXAMINATION: VITAL SIGNS: Pulse is 82, blood pressure 170/81, respirations 16. CHEST: Scattered rhonchi. ABDOMEN: Soft, minimal tenderness on the left side of the abdomen. LEGS: Cellulitis. LABORATORY DATA: Reviewed. ASSESSMENT: 1. Severe hyponatremia, possibly hypovolemic hyponatremia on admission. 2. Significant cellulitis with necrotic skin on the right knee with Methicillin- resistant Staphylococcus aureus and resistant Pseudomonas aeruginosa. 3. Enterococcus faecalis, vancomycin sensitive in the urine. 4. Generalized aches and pains. 5. Gait dysfunction and weakness. 6. Chronic obstructive pulmonary disease. 7. Multiple complex medical issues. RECOMMENDATIONS: Recommend to continue current management. Continue symptomatic treatment. Continue the pain management. Continue the antibiotics. Closely follow with multiple consultants. I would recommend also PT, OT evaluation and possible ECF rehab also. See orders for further details. The patient also had allergy to multiple antibiotics. The patient might need outpatient IV antibiotics also. MMODL / IJN: [id number] /
[2024-04-09 09:07] LABS: African American GFR (CKD) >90 (>60 ml/min/1.73 sqM); Non-African American GFR(CKD) >90 (>60 ml/min/1.73 sqM)
[2024-04-09 10:11] LABS: Blood Urea Nitrogen 25.2 mg/dL (9.0-27.0); Carbon Dioxide 28.4 mmol/L (21.6-31.8); Chloride 104 mmol/L (96-109); Glucose 77 mg/dL (70-110); Potassium 4.7 mmol/L (3.5-5.5); Sodium 139 mmol/L (135-145)
[2024-04-09] MEDS: VANCOMYCIN TROUGH DUE 1 EACH MISC MISCELLANE ONE (11:57)
[2024-04-09] MEDS: GABAPENTIN 300 MG CAP PO SCH (12:02)
--- NOTE | 2024-04-09 13:26 | P.PN ---
Subjective Progress Note Date: 04/09/24 Principal diagnosis: Urinary tract infection. 68-year-old female who was seen in the emergency department, on April 01. She apparently came there because of blurred vision. She apparently was having double vision, and she states that she was told that she should go to the emergency room, to have it evaluated. We are consulted, because a chest x-ray shows some patchy infiltrates, and there was concern for pneumonia. I asked the patient specifically if she was having any lung issues, and she said no. She denied any shortness of breath, cough, wheezing, chest tightness, or phlegm production. She is on 3 L of oxygen, because of her underlying COPD. She does have a history of COPD, asthma, heart failure, fibromyalgia, GERD, hypertension, pulmonary embolism, and hypothyroidism, among other things. Current laboratory data includes a white count of 11.9, hemoglobin 11.4, hematocrit 35.9, and a platelet count of 542,000. Sodium 134, potassium 4.5, chlorides 98, CO2 28, BUN 11, creatinine 0.4. Calcium 9.4, TSH is elevated at 8.240. N-terminal proBNP was 1590 on admission. Urine is essentially negative. A chest x-ray was done, compared to the x-ray that was done on March 24. There is elevation of the left hemidiaphragm. Allowing for technical differences, I do not see much change between the 2 x-rays. The patient is currently on Rocephin. She is also receiving Symbicort, and albuterol, as well as DuoNeb. Stat procalcitonin level was ordered. The patient is seen today April 04, 2024 in follow-up on the regular medical floor. She is currently sitting up in bed. Awake and alert in no acute distress. She is doing much better today emotionally than compared to yesterday. She is maintaining good O2 saturations in the 90s on 2 L/min per nasal cannula. She did have a CT angiogram that ruled out pulmonary embolism. Procalcitonin was negative at 0.22. White count 10.9. Hemoglobin 12.1. Platelets 593. Sodium 135. Potassium 4.9. Bicarb 31. BUN 9. Creatinine 0.5. Glucose 79. She remains on DuoNeb inhalations, Singulair, Symbicort Lovenox for DVT prophylaxis. The patient is seen today April 05, 2024 in follow-up on the regular medical floor. She is resting comfortably in bed. Awake and alert in no acute distress . Denies any worsening shortness of breath, cough or congestion. She is maintaining O2 saturations in the 90s on 2 L/min per nasal cannula. Her urine culture is positive for group D Enterococcus. Blood culture pending. White count 9.8. Hemoglobin 11.0. Platelets 496. Sodium 134. Potassium 4.6. Bicarb 33. BUN 10. Creatinine 0.5. Glucose 84. Her urine drug screen was positive for opiates, benzodiazepines and marijuana. Progress note dated April 06, 2024. The patient is seen today in room 618. She continues on oxygen at 2 L. Saturations are 95%. She is not receiving any IV fluids. She is not having any respiratory issues. Her urine was positive for Enterococcus faecalis. She is currently on Ancef. No new labs today. Labs from April 05 have been reviewed. She did have cultures, from the right knee wound, which show evidence of presumptive Staph aureus, and gram-negative bacilli. Infectious disease solutions consultant is following. Progress note dated April 07, 2024. 68-year-old female seen in room 618. The patient continues on oxygen at 2 L, with saturations of 99%. Her urine showed evidence of Enterococcus faecalis. Her right knee culture show evidence of Staph aureus and Pseudomonas. She continues on cefepime. Infectious disease doctor is following. From the pulmonary standpoint, she is stable. She denies any worsening or more severe shortness of breath, cough, wheezing, chest tightness, or phlegm production. Her white count is 14.9, hemoglobin 11.5, hematocrit 36.8, and platelet count 522,000. Sodium 136, potassium 5, chlorides 98, CO2 31, BUN 23, and creatinine 0.6. Calcium is 9.7. Vancomycin has now been added by the ID doctor. Progress note dated April 08, 2024. 68-year-old female seen in room 618. Currently, the patient is on saline at 10 cc an hour. She is getting O2 at 2 L. The patient had evidence of a right knee infection, with Pseudomonas aeruginosa, and methicillin-resistant Staph aureus. In addition, she had a urinary tract infection with Enterococcus faecalis. She is currently on vancomycin, and Zerbaxa. No new labs today. Labs from April 07 have been reviewed. Progress note dated April 09, 2024. 68-year-old female seen in room 618. The patient is currently on 2 L of oxygen. The patient continues on Zerbaxa, and vancomycin as per infectious diseases. She also continues on updrafts, Symbicort, and Singulair. Clinically, the patient appears stable. She is not really having much in the way of lung issues. She had an uneventful night. Labs today include a sodium 139, potassium 4.7, chlorides 104, CO2 28, BUN 25, creatinine 0.5. Objective - Vital Signs Vital signs: Vital Signs Temp 98.8 F 04/09/24 07:20 Pulse 90 04/09/24 07:20 Resp 16 04/09/24 07:20 BP 165/79 04/09/24 07:20 Pulse Ox 95 04/09/24 09:01 FiO2 Intake & Output 04/08/24 04/09/24 04/09/24 18:59 06:59 18:59 Output Total 945 Balance -945 Output: Urine 945 Other: Voiding Method Bedside Commode Bedside Commode # Voids 1 2 # Bowel Movements 0 - Exam No acute distress, oriented 3. Currently on 2 L of oxygen. Saturations are 96 %. HEENT examination is grossly unremarkable. Mucous membranes are moist. No oral lesions. Neck supple. Full range of motion. No adenopathy thyromegaly or neck vein distention. Cardiovascular examination reveals regular rhythm rate. S1-S2 normal. No S3 or S4. No discernible murmur noted. Lungs reveal clear but diminished breath sounds. No wheezes. No rhonchi. No crackles. Breath sounds equal bilaterally. Saturations are 96 %. Abdomen soft bowel sounds are heard. No masses or tenderness. Extremities are intact. No cyanosis clubbing or edema. Right knee wound is no carlos. Skin is without rash or lesion. Neurologic examination is brief but nonfocal. - Labs CBC & Chem 7: 04/08/24 02:48 04/09/24 08:06 Labs: Abnormal Lab Results - Last 24 Hours (Table) 04/09/24 04/09/24 Range/Units 02:59 08:06 Creatinine 0.5 L 0.47 L (0.6-1.5) mg/dL BUN/Creatinine Ratio 50.40 H (12.00-20.00) Ratio Microbiology - Last 24 Hours (Table) 04/03/24 14:49 Blood Culture - Final Blood Assessment and Plan Assessment: Acute blurred vision/double vision, currently being evaluated by the primary service. Chronic hypoxemic respiratory failure, secondary to COPD, stable, on home oxygen. Possible pneumonia, although the patient is not having any pneumonic symptoms. Enterococcus faecalis urinary tract infection. Right knee infection, secondary to Pseudomonas aeruginosa, and methicillin-r esistant Staph aureus. Bipolar disorder with anxiety. Fibromyalgia. History of chronic tobacco dependence. Hypothyroidism. History of hypertension. History of marijuana use. Plan: Plan dated April 03, 2024. The patient is seen today room 618. The patient was admitted with a diagnosis of double vision/blurred vision. That is currently being evaluated by the primary service. CT scan of the brain, showed no acute cranial process. The CT scan of the brain is compared to one done on March 24. Also, the chest x- ray, as compared to the x-ray done on March 24. In my opinion, there is not much difference between the 2 x-rays. Nonetheless, the patient was placed on ceftriaxone by the primary service. I have ordered a procalcitonin level to be done stat. If normal, the antibiotic should be discontinued. The patient is denying any pulmonary issues including shortness of breath, cough, wheezing, chest tightness, or phlegm production. She also denies any fever or chills. Plan dated April 06, 2024. The patient is stable from the pulmonary standpoint. She did not present with pulmonary complaints. She denied any worsening shortness of breath, cough, wheezing, chest tightness, or phlegm production. She did have a urinary tract infection, secondary to Enterococcus faecalis. The right knee was cultured and showed evidence of presumptive staph, and gram-negative bacilli. She continues on Ancef. Infectious disease doctor is following. Prognosis is guarded. Plan dated April 15, 2024. The patient continues on cefepime, with vancomycin recently added, for the right knee wound, and the urinary tract infection. Labs, x-rays, and medications are reviewed. Her 2 L saturation is 99%. She is not having any issues with her lungs currently. She denies any worsening or more severe shortness of breath, cough, wheezing, chest tightness, or phlegm production. Labs, x-rays, and all medications are reviewed. We will continue to follow along and make recommendations where appropriate. Plan dated April 08, 2024. The patient is seen today in room 618. She continues on saline at 10 cc an hour. She is getting nasal O2 at 2 L. Her urine screen was positive for Enterococcus faecalis. In addition, her right knee wound, tested positive for Pseudomonas aeruginosa and methicillin-resistant Staph aureus. She continues on vancomycin and Zerbaxa. She is being followed by infectious diseases. The patient is stable from the pulmonary standpoint. She denies any increasing or worsening shortness of breath, cough, wheezing, chest tightness, or phlegm production. Plan dated April 09, 2024. The patient continues on antibiotics, as per infectious diseases. She is on 2 L of oxygen. She continues on vancomycin and Zerbaxa. She also continues on updrafts, Symbicort and Singulair. Her respiratory status is stable. We will continue to follow make recommendations. Prognosis is guarded. No additional recommendations are made. Time with Patient: Less than 30
[2024-04-09] MEDS: QUEtiapine 25 MG TAB PO SCH (14:34)
[2024-04-09 14:36] LABS: Eosinophils # (A) 0.17 X 10*3/uL (0.04-0.35); Eosinophils % (A) 1.6 %; HCT 31.2 % (37.2-46.3); HGB 9.7 g/dL (12.0-15.0); Lymphocytes # (A) 0.85 X 10*3/uL (0.90-5.00); Lymphocytes % (A) 8.2 %; MCH 30.8 pg (27.0-32.0); MCHC 31.1 g/dL (32.0-37.0); Mean Platelet Volume 8.8 FL (9.5-12.2); Monocytes # (A) 1.18 X 10*3/uL (0.20-1.00); Monocytes % (A) 11.4 %; NRBC Per 100 WBC 0 X 10*3/uL (0.00-0.01); Neutrophils # (A) 7.91 X 10*3/uL (1.80-7.70); Neutrophils % (A) 76.4 %; Platelet Count 390 X 10*3/uL (140-440); RBC 3.15 X 10*6/uL (4.10-5.20); RDW 13.7 % (11.5-14.5); WBC 10.36 X 10*3/uL (4.50-10.00)
--- NOTE | 2024-04-09 23:13 | PN ---
PROGRESS NOTE DATE OF SERVICE: 04/09/2024 SUBJECTIVE: This is a 68-year-old woman, who was admitted with severe hyponatremia, also had cellulitis, necrotic skin. The patient also has MRSA versus Pseudomonas aeruginosa grown from the culture. The patient has severe anxiety. PAST MEDICAL HISTORY: Reviewed. REVIEW OF SYSTEMS: Fourteen-point review of systems is negative except as mentioned earlier. PHYSICAL EXAMINATION: VITAL SIGNS: Pulse 90, blood pressure 160/70, respirations 16. HEENT: Conjunctivae normal. ABDOMEN: Soft. LABORATORY DATA: WBC 11. Rest of the laboratories are noted. ASSESSMENT: 1. Severe hyponatremia with possible hypovolemic hyponatremia on admission. 2. Significant cellulitis and necrotic skin on the right knee with methicillin- resistant Staphylococcus aureus as well as resistant Pseudomonas aeruginosa, present on admission. 3. Enterococcus faecalis, vancomycin sensitive in the urine. 4. Generalized aches and pains. 5. Severe anxiety and panic attacks. 6. Gait dysfunction, weakness. 7. Chronic obstructive pulmonary disease. 8. Multiple complex medical issues. RECOMMENDATIONS: Recommend to continue current management and treatment. Otherwise, at this time, I recommend to continue with Ativan p.r.n. Resume the gabapentin. Continue the antibiotics. The patient might need possibly IV antibiotics. Guarded prognosis. Further recommendations to follow. MMODL / IJN: [id number] / [facility]
[2024-04-10 08:41] LABS: HCT 31.7 % (37.2-46.3); HGB 9.8 g/dL (12.0-15.0); MCH 30.6 pg (27.0-32.0); MCHC 30.9 g/dL (32.0-37.0); MCV 99.1 FL (80.0-97.0); Mean Platelet Volume 9.2 FL (9.5-12.2); NRBC Per 100 WBC 0 X 10*3/uL (0.00-0.01); Platelet Count 316 X 10*3/uL (140-440); RDW 13.5 % (11.5-14.5); WBC 11.47 X 10*3/uL (4.50-10.00)
[2024-04-10 09:26] LABS: Calcium 9.1 mg/dL (8.7-10.3); Carbon Dioxide 26.3 mmol/L (21.6-31.8); Chloride 99 mmol/L (96-109); Glucose 165 mg/dL (70-110); Potassium 4.6 mmol/L (3.5-5.5); Sodium 134 mmol/L (135-145)
[2024-04-10 11:03] LABS: Basophils # (A) 0.09 X 10*3/uL (0.00-0.10); Basophils % (A) 0.8 %; Eosinophils # (A) 0.09 X 10*3/uL (0.04-0.35); Eosinophils % (A) 0.8 %; Lymphocytes # (A) 1.03 X 10*3/uL (0.90-5.00); Monocytes # (A) 1.53 X 10*3/uL (0.20-1.00); Monocytes % (A) 13.3 %; Neutrophils # (A) 8.64 X 10*3/uL (1.80-7.70); Neutrophils % (A) 75.3 %; RBC Morphology Normal (Normal)
--- NOTE | 2024-04-10 12:22 | P.CRDCN ---
History of Present Illness History of present illness: HISTORY OF PRESENT ILLNESS: This is a 68-year-old female with a past medical history significant for hypertension, hypothyroidism, anxiety, bipolar disorder, depression, nicotine dependence, marijuana use, fibromyalgia, and GERD. Patient follows in the office with Dr. Last. We have been asked to see the patient in consultation for Nidia tach. Patient examined at the bedside. Patient is admitted to the hospital secondary to urinary tract infection and also right knee infection. She is receiving IV antibiotics. The patient currently denies any chest pain or pressure. She denies shortness of breath. Patient did have a run of nonsustained ventricular tachycardia this morning. Patient states she was asymptomatic. Patient was recently admitted to the hospital and cardiology evaluated patient for bradycardia. Her beta-nahum was discontinued at that time. DIAGNOSTICS: - EKG reveals sinus mechanism with no signs of acute ischemia - Chest xray ongoing patchy lower lung opacities and trace pleural effusions - Laboratory data: WBC 11.47. Hemoglobin 9.8. Platelet count 316. Sodium 134. Potassium 4.6. BUN 16. Creatinine 0.5. - Current home cardiac medications include amlodipine 5 mg daily - Most recent echocardiogram obtained in November 2023 revealed ejection fraction 55 to 60%, trace TR, mild concentric LVH REVIEW OF SYSTEMS: At the time of my exam: CONSTITUTIONAL: Denies fever or chills. HEENT: Denies blurred vision, vision changes, or eye pain. Denies hemoptysis CARDIOVASCULAR: Denies chest pain. Denies orthopnea. Denies PND. Denies palpitations RESPIRATORY: Denies shortness of breath. GASTROINTESTINAL: Denies abdominal pain. Denies nausea or vomiting. HEMATOLOGIC: Denies bleeding disorders. GENITOURINARY: Denies any blood in urine. SKIN: Denies pruitis. Denies rash. PHYSICAL EXAM: VITAL SIGNS: Reviewed. GENERAL: Well-developed in no acute distress. HEENT: Head is normocephalic. Pupils are equal, round. Sclerae anicteric. Mucous membranes of the mouth are moist. Neck supple. No JVD or thyromegaly LUNGS: Respirations even and unlabored. Lungs essentially clear to auscultation bilaterally. HEART: Regular rate and rhythm. S1 and S2 heard. ABDOMEN: Soft. Nondistended. Nontender. EXTREMITIES: Dressing to right knee noted. No clubbing or cyanosis. Peripheral pulses intact. No lower extremity edema NEUROLOGIC: Awake and alert. Oriented x 3. ASSESSMENT: Nonsustained ventricular tachycardia History of sinus bradycardia, beta-nahum recently discontinued Right knee infection, culture positive for MRSA and Pseudomonas aeruginosa Urinary tract infection, urine culture positive for Enterococcus faecalis Chronic hypoxic respiratory failure on home oxygen Fibromyalgia Hypothyroidism Anxiety Bipolar disorder Depression Nicotine dependence Marijuana use PLAN: Obtain limited echo to assess LV function Continue current cardiac medications Check magnesium level Continue telemetry monitoring to assess for further episodes of ventricular tachycardia. If patient has more episodes of ventricular tachycardia, will add beta-nahum. However this was recently discontinued due to bradycardia and complaints of dizziness and lightheadedness. Further recommendations pending patient course Nurse practitioner note has been reviewed by physician. Signing provider agrees with the documented findings, assessment, and plan of care documented by SALVAGE CLERK as a scribe. 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 History of Any Multi-Drug Resistant Organisms: None Reported Past Surgical History: Bariatric Surgery, Section, Cholecystectomy, Hysterectomy, Tonsillectomy Additional Past Surgical History / Comment(s): EGD, colonoscopies, gastric bypass, surgery for deviated septum, left cataract removal (having laser procedure on that eye 11/24/23) Past Anesthesia/Blood Transfusion Reactions: Previous Problems w/ Anesthesia Additional Past Anesthesia/Blood Transfusion Reaction / Comment(s): itching after hysterectomy, some kind of breathing problem after gastric bypass-not sure what happened Past Psychological History: Anxiety, Bipolar, Depression, Panic Disorder Additional Psychological History / Comment(s): . Smoking Status: Current every day smoker Past Alcohol Use History: None Reported Additional Past Alcohol Use History / Comment(s): Pt started smoking in 1986 and quit when she went into [facility] 08/2021, started again after discharge from [facility] 05/2022 Past Drug Use History: Marijuana Additional Drug Use History / Comment(s): occassional cannabis use per pt - Past Family History Mother Family Medical History: Congestive Heart Failure (CHF), Hypertension Father History Unknown: Yes Additional Family Medical History / Comment(s): Father at the age of 45 yrs d/t having had rheumatic fever as a child and heart valve disease. Medications and Allergies Home Medications Medication Instructions Recorded Confirmed Type Montelukast [Singulair] 10 mg PO HS 12/17/13 04/01/24 History Levothyroxine Sodium [Synthroid] 150 mcg PO DAILY 03/29/20 04/01/24 History Budesonide/Formoterol Fumarate 2 puff INHALATION RT-BID 06/12/21 04/01/24 History [Symbicort 160-4.5 Mcg Inhaler] Famotidine [Pepcid] 20 mg PO BID 09/03/21 04/01/24 History Tamsulosin [Flomax] 0.4 mg PO DAILY@1200 10/26/21 04/01/24 History Ferrous Sulfate [Iron (65 MG 325 mg PO DAILY 11/13/22 04/01/24 History Elemental)] Ipratropium-Albuterol Nebulize 3 ml INHALATION RT-QID PRN 11/13/22 04/01/24 History [Duoneb 0.5 mg-3 mg/3 ml Soln] Thiamine [Vitamin B-1] 100 mg PO DAILY@1700 11/13/22 04/01/24 History Albuterol Inhaler [Ventolin Hfa 2 puff INHALATION RT-QID PRN #1 11/17/2204/01 Rx Inhaler] each Ibandronate Sodium [Boniva] 150 mg PO Q30D 05/03/23 04/01/24 History Melatonin 5 mg PO HS PRN 05/03/23 04/01/24 History Acetaminophen [Tylenol Arthritis] 650 mg PO Q4HR PRN 10/24/23 04/01/24 History amLODIPine [Norvasc] 5 mg PO DAILY 12/12/23 04/01/24 History clonazePAM [KlonoPIN ODT] 0.25 mg PO HS 12/12/23 04/01/24 History OLANZapine [ZyPREXA] 15 mg PO HS 01/22/24 04/01/24 History Albuterol Nebulized [Ventolin 5 mg INHALATION RT-QID PRN #60 each 01/24/24 0 04/01/24 Rx Nebulized] HYDROcodone/APAP 5-325MG [Nicasio 1 tab PO Q6HR PRN 3 Days #12 tab 03/15/24 04/01/24 Rx 5-325] Folic Acid 1 mg PO DAILY@1700 03/18/24 04/01/24 History Venlafaxine HCl ER [Effexor XR] 150 mg PO DAILY 03/18/24 04/01/24 History hydrOXYzine HCL [Atarax] 25 mg PO BID 03/18/24 04/01/24 History lamoTRIgine [LaMICtal] 150 mg PO BID 03/18/24 04/01/24 History Divalproex ER [Depakote ER] 500 mg PO HS #60 tab 03/28/24 04/01/24 Rx Pyridoxine [Vitamin B-6] 50 mg PO DAILY #30 tab 03/28/24 04/01/24 Rx Gabapentin 300 mg PO TID 04/09/24 04/09/24 History Allergies Allergy/AdvReac Type Severity Reaction Status Date / Time codeine Allergy Unknown Verified 04/01/24 18:35 Childhood Penicillins Allergy Rash/Hives Verified 04/01/24 18:35 Sulfa (Sulfonamide Allergy Rash/Hives Verified 04/01/24 18:35 Antibiotics) Physical Exam Vitals: Vital Signs Temp Pulse Pulse Resp BP Pulse Ox 04/10/24 08:45 90 L 04/10/24 08:00 99 F 87 16 159/70 92 L 04/10/24 02:00 99.0 F 90 14 156/71 04/09/24 20:58 74 95 16 04/09/24 20:00 98.4 F 74 95 16 131/68 04/09/24 13:50 99.9 F H 93 16 125/65 96 Intake and Output 04/09/24 04/10/24 04/10/24 22:59 06:59 14:59 Other: Voiding Method Bedside Commode # Voids 1 1 1 # Bowel Movements 0 Results 04/10/24 02:45 04/10/24 02:45 CBC 04/09/24 04/10/24 Range/Units 02:59 02:45 WBC 10.36 H 11.47 H (4.50-10.00) X 10*3/uL RBC 3.15 L 3.20 L (4.10-5.20) X 10*6/uL Hgb 9.7 L 9.8 L (12.0-15.0) g/dL Hct 31.2 L 31.7 L (37.2-46.3) % Plt Count 390 316 (140-440) X 10*3/uL Comprehensive Metabolic Panel 04/10/24 Range/Units 02:45 Sodium 134 L (135-145) mmol/L Potassium 4.6 (3.5-5.5) mmol/L Chloride 99 (96-109) mmol/L Carbon Dioxide 26.3 (21.6-31.8) mmol/L BUN 16.0 (9.0-27.0) mg/dL Creatinine 0.5 L (0.6-1.5) mg/dL Glucose 165 H (70-110) mg/dL Calcium 9.1 (8.7-10.3) mg/dL Current Medications Generic Name Dose Route Start Last Admin Trade Name Freq PRN Reason Stop Dose Admin Acetaminophen 650 mg 04/01/24 22:14 04/06/24 17:44 Acetaminophen Tab 325 Mg Tab PO 650 mg Q4HR PRN Administration Pain Hydrocodone Bitart/Acetaminophen 1 each 04/01/24 22:14 04/10/24 09:33 Hydrocodone/Apap 5-325mg 1 Each Tab PO 1 each Q6HR PRN Administration Pain Albuterol Sulfate 5 mg 04/01/24 22:14 Albuterol Nebulized 2.5 Mg/3 Ml INHALATION RT-QID PRN Shortness Of Breath Or Wheezing Albuterol/Ipratropium 3 ml 04/01/24 22:14 Ipratropium-Albuterol 3 Ml Neb INHALATION RT-QID PRN Shortness Of Breath Albuterol/Ipratropium 3 ml 04/04/24 12:00 04/10/24 08:44 Ipratropium-Albuterol 3 Ml Neb INHALATION Not Given RT-QID JEIMY Alprazolam 0.5 mg 04/04/24 11:07 Alprazolam 0.5 Mg Tab PO TID PRN Anxiety Amlodipine Besylate 5 mg 04/02/24 09:00 04/10/24 08:18 Amlodipine 5 Mg Tab PO 5 mg DAILY JEIMY Administration Budesonide/Formoterol Fumarate 2 puff 04/02/24 08:00 04/10/24 08:39 Symbicort 160-4.5 Mcg Inhaler INHALATION 2 puff RT-BID JEIMY Administration Clonazepam 0.25 mg 04/02/24 10:46 04/06/24 05:23 Clonazepam 0.5 Mg Tab PO 0.25 mg HS PRN Administration Anxiety Collagenase 1 applic 04/05/24 17:15 04/10/24 11:18 Collagenase 250 Unit/Gm Ointment 30 Gm Tube TOPICAL 1 applic DAILY JEIMY Administration Protocol Divalproex Sodium 500 mg 04/02/24 21:00 04/09/24 20:57 Divalproex Er 500 Mg Tab.Er.24h PO 500 mg HS JEIMY Administration Enoxaparin Sodium 40 mg 04/03/24 09:00 04/10/24 08:18 Enoxaparin 40 Mg/0.4 Ml Syringe SQ 40 mg DAILY JEIMY Administration Famotidine 20 mg 04/02/24 09:00 04/10/24 08:18 Famotidine 20 Mg Tab PO 20 mg BID JEIMY Administration Ferrous Sulfate 325 mg 04/02/24 09:00 04/10/24 08:17 Ferrous Sulfate 325 Mg Tab PO 325 mg DAILY JEIMY Administration Folic Acid 1 mg 04/02/24 17:00 04/09/24 17:28 Folic Acid 1 Mg Tab PO 1 mg DAILY@1700 JEIMY Administration Gabapentin 300 mg 04/09/24 11:30 04/10/24 08:18 Gabapentin 300 Mg Cap PO 300 mg TID JEIMY Administration Vancomycin HCl 1,250 mg/ 250 mls @ 125 mls/hr 04/07/24 11:30 04/10/24 09:34 Sodium Chloride IVPB 125 mls/hr Q12HR JEIMY Administration Ceftolozane/Tazobactam 3 gm/ 100 mls @ 100 mls/hr 04/07/24 16:00 04/10/24 08:18 Sodium Chloride IV 100 mls/hr Q8HR JEIMY Administration Protocol Ketorolac Tromethamine 15 mg 04/06/24 16:30 04/10/24 06:45 Ketorolac 15 Mg/Ml 1 Ml Vial IVP 04/11/24 16:29 15 mg Q6HR JEIMY Administration Lamotrigine 150 mg 04/02/24 09:00 04/10/24 08:17 Lamotrigine 100 Mg Tab PO 150 mg BID JEIMY Administration Levothyroxine Sodium 150 mcg 04/02/24 06:30 04/10/24 06:45 Levothyroxine 75 Mcg Tab PO 150 mcg DAILY@0630 JEIMY Administration Lorazepam 1 mg 04/04/24 11:05 04/10/24 09:34 Lorazepam 2 Mg/Ml Inj IV 1 mg Q6HR PRN Administration Anxiety Melatonin 5 mg 04/01/24 22:30 04/02/24 20:48 Melatonin 5 Mg Tablet PO 5 mg HS PRN Administration Insomnia Montelukast Sodium 10 mg 04/02/24 21:00 04/09/24 20:57 Montelukast 10 Mg Tab PO 10 mg HS JEIMY Administration Naloxone HCl 0.2 mg 04/01/24 17:48 Naloxone 0.4 Mg/Ml 1 Ml Vial IV Q2M PRN Opioid Reversal Nicotine 1 patch 04/06/24 12:15 04/10/24 08:17 Nicotine 14mg/24hr Patch TRANSDERM 1 patch DAILY JEIMY Administration Olanzapine 15 mg 04/02/24 21:00 04/09/24 20:57 Olanzapine 7.5 Mg Tab PO 15 mg HS JEIMY Administration Ondansetron HCl 4 mg 04/01/24 17:48 Ondansetron 4 Mg/2 Ml Vial IVP Q8HR PRN Nausea And Vomiting Pyridoxine HCl 50 mg 04/02/24 09:00 04/10/24 08:17 Pyridoxine 50 Mg Tab PO 50 mg DAILY JEIMY Administration Quetiapine Fumarate 25 mg 04/09/24 14:00 04/10/24 08:18 Quetiapine 25 Mg Tab PO 25 mg BID JEIMY Administration Tamsulosin HCl 0.4 mg 04/02/24 12:00 04/09/24 12:02 Tamsulosin 0.4 Mg Cap.Er.24h PO 0.4 mg DAILY@1200 JEIMY Administration Thiamine HCl 100 mg 04/02/24 17:00 04/09/24 17:28 Thiamine 100 Mg Tab PO 100 mg DAILY@1700 JEIMY Administration Venlafaxine HCl 150 mg 04/02/24 09:00 04/10/24 08:17 Venlafaxine Hcl Er 150 Mg Cap PO 150 mg DAILY JEIMY Administration Intake and Output 04/09/24 04/10/24 04/10/24 22:59 06:59 14:59 Other: Voiding Method Bedside Commode # Voids 1 1 1 # Bowel Movements 0 04/10/24 02:45 04/10/24 02:45
[2024-04-10] MEDS: MAGNESIUM SULFATE-D5W PMX 1 GM in DEXTROSE/WATER 1 100ML.BAG IVPB SCH (13:46)
--- NOTE | 2024-04-10 18:59 | P.PN ---
Subjective Progress Note Date: 04/10/24 68-year-old female who was seen in the emergency department, on April 01. She apparently came there because of blurred vision. She apparently was having double vision, and she states that she was told that she should go to the emergency room, to have it evaluated. We are consulted, because a chest x-ray shows some patchy infiltrates, and there was concern for pneumonia. I asked the patient specifically if she was having any lung issues, and she said no. She denied any shortness of breath, cough, wheezing, chest tightness, or phlegm production. She is on 3 L of oxygen, because of her underlying COPD. She does have a history of COPD, asthma, heart failure, fibromyalgia, GERD, hypertension, pulmonary embolism, and hypothyroidism, among other things. Current laboratory data includes a white count of 11.9, hemoglobin 11.4, hematocrit 35.9, and a platelet count of 542,000. Sodium 134, potassium 4.5, chlorides 98, CO2 28, BUN 11, creatinine 0.4. Calcium 9.4, TSH is elevated at 8.240. N-terminal proBNP was 1590 on admission. Urine is essentially negative. A chest x-ray was done, compared to the x-ray that was done on March 24. There is elevation of the left hemidiaphragm. Allowing for technical differences, I do not see much change between the 2 x-rays. The patient is currently on Rocephin. She is also receiving Symbicort, and albuterol, as well as DuoNeb. Stat procalcitonin level was ordered. The patient is seen today April 04, 2024 in follow-up on the regular medical floor. She is currently sitting up in bed. Awake and alert in no acute distress. She is doing much better today emotionally than compared to yesterday. She is maintaining good O2 saturations in the 90s on 2 L/min per nasal cannula. She did have a CT angiogram that ruled out pulmonary embolism. Procalcitonin was negative at 0.22. White count 10.9. Hemoglobin 12.1. Platelets 593. Sodium 135. Potassium 4.9. Bicarb 31. BUN 9. Creatinine 0.5. Glucose 79. She remains on DuoNeb inhalations, Singulair, Symbicort Lovenox for DVT prophylaxis. The patient is seen today April 05, 2024 in follow-up on the regular medical floor. She is resting comfortably in bed. Awake and alert in no acute distress. Denies any worsening shortness of breath, cough or congestion. She i s maintaining O2 saturations in the 90s on 2 L/min per nasal cannula. Her urine culture is positive for group D Enterococcus. Blood culture pending. White count 9.8. Hemoglobin 11.0. Platelets 496. Sodium 134. Potassium 4.6. Bicarb 33. BUN 10. Creatinine 0.5. Glucose 84. Her urine drug screen was positive for opiates, benzodiazepines and marijuana. Progress note dated April 06, 2024. The patient is seen today in room 618. She continues on oxygen at 2 L. Saturations are 95%. She is not receiving any IV fluids. She is not having any respiratory issues. Her urine was positive for Enterococcus faecalis. She is currently on Ancef. No new labs today. Labs from April 05 have been reviewed. She did have cultures, from the right knee wound, which show evidence of presumptive Staph aureus, and gram-negative bacilli. Infectious disease solution consultant is following. Progress note dated April 07, 2024. 68-year-old female seen in room 618. The patient continues on oxygen at 2 L, with saturations of 99%. Her urine showed evidence of Enterococcus faecalis. Her right knee culture show evidence of Staph aureus and Pseudomonas. She continues on cefepime. Infectious disease doctor is following. From the pulmonary standpoint, she is stable. She denies any worsening or more severe shortness of breath, cough, wheezing, chest tightness, or phlegm production. He r white count is 14.9, hemoglobin 11.5, hematocrit 36.8, and platelet count 522,000. Sodium 136, potassium 5, chlorides 98, CO2 31, BUN 23, and creatinine 0.6. Calcium is 9.7. Vancomycin has now been added by the ID doctor. Progress note dated April 08, 2024. 68-year-old female seen in room 618. Currently, the patient is on saline at 10 cc an hour. She is getting O2 at 2 L. The patient had evidence of a right knee infection, with Pseudomonas aeruginosa, and methicillin-resistant Staph aureus. In addition, she had a urinary tract infection with Enterococcus faecalis. She is currently on vancomycin, and Zerbaxa. No new labs today. Labs from April 07 have been reviewed. Progress note dated April 09, 2024. 68-year-old female seen in room 618. The patient is currently on 2 L of oxygen. The patient continues on Zerbaxa, and vancomycin as per infectious diseases. She also continues on updrafts, Symbicort, and Singulair. Clinically, the patient appears stable. She is not really having much in the way of lung issues. She had an uneventful night. Labs today include a sodium 139, potassium 4.7, chlorides 104, CO2 28, BUN 25, creatinine 0.5. On today's evaluation of 04/10/2024, the patient is being seen for a follow-up. Patient is doing well. No specific complaints. COPD is currently inactive and stable. She has Enterococcus faecalis urinary tract infection and a right knee wound with Pseudomonas/MRSA the patient is on the appropriate antibiotic treat ment. No new complaints otherwise for now. She is known to have hypertension, hypothyroidism, chronic anxiety and depression, chronic smoking and fibromyalgia and marijuana use. No significant respiratory difficulties. White cell count 11 hemoglobin is 9.8, electrolytes are all within normal limits. Antibiotic coverage includes vancomycin and ceftolozane tazobactam on a separate note, the patient's had a run of nonsustained V. tach this morning. This was asymptomatic. Echocardiogram was ordered and cardiology consultation has been also requested Objective - Vital Signs Vital signs: Vital Signs Temp 99 F 04/10/24 08:00 Pulse 87 04/10/24 08:00 Resp 16 04/10/24 08:00 BP 159/70 04/10/24 08:00 Pulse Ox 90 L 04/10/24 08:45 FiO2 Intake & Output 04/09/24 04/10/24 04/10/24 18:59 06:59 18:59 Other: Voiding Method Bedside Commode Bedside Commode Bedside Commode # Voids 4 1 1 # Bowel Movements 0 - Exam No acute distress, oriented 3. Currently on 2 L of oxygen. Saturations are 96 %. HEENT examination is grossly unremarkable. Mucous membranes are moist. No oral lesions. Neck supple. Full range of motion. No adenopathy thyromegaly or neck vein distention. Cardiovascular examination reveals regular rhythm rate. S1-S2 normal. No S3 or S4. No discernible murmur noted. Lungs reveal clear but diminished breath sounds. No wheezes. No rhonchi. No crackles. Breath sounds equal bilaterally. Saturations are 96 %. Abdomen soft bowel sounds are heard. No masses or tenderness. Extremities are intact. No cyanosis clubbing or edema. Right knee wound is noted. Skin is without rash or lesion. Neurologic examination is brief but nonfocal. - Labs CBC & Chem 7: 04/10/24 02:45 04/10/24 02:45 Labs: Abnormal Lab Results - Last 24 Hours (Table) 04/09/24 04/10/24 04/10/24 Range/Units 02:59 02:45 02:45 WBC 10.36 H 11.47 H (4.50-10.00) X 10*3/uL RBC 3.15 L 3.20 L (4.10-5.20) X 10*6/uL Hgb 9.7 L 9.8 L (12.0-15.0) g/dL Hct 31.2 L 31.7 L (37.2-46.3) % MCV 99.0 H 99.1 H (80.0-97.0) FL MCHC 31.1 L 30.9 L (32.0-37.0) g/dL MPV 8.8 L 9.2 L (9.5-12.2) FL Immature Gran # 0.15 H 0.09 H (0.00-0.04) X 10*3/uL Neutrophils # 7.91 H 8.64 H (1.80-7.70) X 10*3/uL Lymphocytes # 0.85 L (0.90-5.00) X 10*3/uL Monocytes # 1.18 H 1.53 H (0.20-1.00) X 10*3/uL Sodium 134 L (135-145) mmol/L Creatinine 0.5 L (0.6-1.5) mg/dL BUN/Creatinine Ratio 32.00 H (12.00-20.00) Ratio Glucose 165 H (70-110) mg/dL Magnesium (1.6-2.3) mg/dL 04/10/24 Range/Units 02:45 WBC (4.50-10.00) X 10*3/uL RBC (4.10-5.20) X 10*6/uL Hgb (12.0-15.0) g/dL Hct (37.2-46.3) % MCV (80.0-97.0) FL MCHC (32.0-37.0) g/dL MPV (9.5-12.2) FL Immature Gran # (0.00-0.04) X 10*3/uL Neutrophils # (1.80-7.70) X 10*3/uL Lymphocytes # (0.90-5.00) X 10*3/uL Monocytes # (0.20-1.00) X 10*3/uL Sodium (135-145) mmol/L Creatinine (0.6-1.5) mg/dL BUN/Creatinine Ratio (12.00-20.00) Ratio Glucose (70-110) mg/dL Magnesium 1.5 L (1.6-2.3) mg/dL Microbiology - Last 24 Hours (Table) 04/05/24 17:00 Anaerobic Culture - Final Knee - Right Prevotella species Porphyromonas somerae Assessment and Plan Plan: Acute blurred vision/double vision, currently being evaluated by the primary service. Chronic hypoxemic respiratory failure, secondary to COPD, stable, on home oxygen. Enterococcus faecalis urinary tract infection. Right knee infection, secondary to Pseudomonas aeruginosa, and methicillin- resistant Staph aureus. Bipolar disorder with anxiety. Fibromyalgia. History of chronic tobacco dependence. Hypothyroidism. History of hypertension. History of marijuana use. Nonsustained VT Plan: Echocardiogram Cardiology consultation Continue antibiotics Respiratory status is stable Will follow
--- NOTE | 2024-04-10 20:58 | PN ---
PROGRESS NOTE DATE OF SERVICE: 04/10/2024 SUBJECTIVE: This is a 68-year-old woman, who was admitted with hyponatremia, cellulitis, and also had severe anxiety. No chest pain or palpitation. OBJECTIVE: VITAL SIGNS: Pulse is 87, blood pressure 159/70, and respirations 16. CHEST: Clear. CARDIOVASCULAR: S1 and S2. ABDOMEN: Soft. LEGS: Cellulitis present. LABORATORY DATA: WBC 11.47. ASSESSMENT: 1. Severe hyponatremia with possible hypovolemic hyponatremia on admission. 2. Significant cellulitis, necrotic skin on the right knee with methicillin-resistant Staphylococcus aureus as well as resistant Pseudomonas aeruginosa. 3. Enterococcus faecalis, vancomycin sensitive. 4. Generalized aches and pains and severe anxiety. 5. Multiple complex medical issues. RECOMMENDATIONS: Recommend to continue current management and continue symptomatic antibiotics. Probably discharge in the next 24 hours. Arrange IV antibiotics, possible PICC line. Closely follow. Further recommendations to follow. Continue with Seroquel. MMODL / IJN: [id number] /
--- NOTE | 2024-04-10 22:30 | P.PN ---
Subjective Progress Note Date: 04/09/24 Principal diagnosis: Reason for follow-up is right knee/leg laceration cellulitis Patient is a 68-year-old female with a past medical history significant for hypertension osteoarthritis fibromyalgia COPD heart failure asthma PE presenting to the hospital for double vision the patient also have recent fall with laceration to the right lower leg at the knee site that was stitched previously. On today's evaluation that is 04/09/2024, patient did have low-grade fever of 99.9 degrees for night this afternoon, patient is breathing comfortably and is currently on 2 L nasal cannula oxygen, patient denies having any significant cough no chest pain shortness of breath, patient denies nausea vomiting or diarrhea and no abdominal pain, patient denies any worsening pain to the right knee wound area. Patient white count is down to 10.36, creatinine 0.5 Objective - Vital Signs Vital signs: Vital Signs Temp 99.9 F H 04/09/24 13:50 Pulse 93 04/09/24 13:50 Resp 16 04/09/24 13:50 BP 125/65 04/09/24 13:50 Pulse Ox 96 04/09/24 13:50 FiO2 Intake & Output 04/08/24 04/09/24 04/09/24 18:59 06:59 18:59 Output Total 945 Balance -945 Output: Urine 945 Other: Voiding Method Bedside Commode Bedside Commode # Voids 1 2 # Bowel Movements 0 - Exam GENERAL DESCRIPTION: An elderly female lying in bed in no distress RESPIRATORY SYSTEM: Unlabored breathing , decreased breath sounds at bases HEART: S1 S2 regular rate and rhythm , ABDOMEN: Soft , no tenderness EXTREMITIES: Right knee/leg area wound is currently dressed - Labs CBC & Chem 7: 04/10/24 02:45 04/10/24 02:45 Labs: Abnormal Lab Results - Last 24 Hours (Table) 04/09/24 04/09/24 04/09/24 Range/Units 02:59 02:59 08:06 WBC 10.36 H (4.50-10.00) X 10*3/uL RBC 3.15 L (4.10-5.20) X 10*6/uL Hgb 9.7 L (12.0-15.0) g/dL Hct 31.2 L (37.2-46.3) % MCV 99.0 H (80.0-97.0) FL MCHC 31.1 L (32.0-37.0) g/dL MPV 8.8 L (9.5-12.2) FL Immature Gran # 0.15 H (0.00-0.04) X 10*3/uL Neutrophils # 7.91 H (1.80-7.70) X 10*3/uL Lymphocytes # 0.85 L (0.90-5.00) X 10*3/uL Monocytes # 1.18 H (0.20-1.00) X 10*3/uL Creatinine 0.5 L 0.47 L (0.6-1.5) mg/dL BUN/Creatinine Ratio 50.40 H (12.00-20.00) Ratio Microbiology - Last 24 Hours (Table) 04/03/24 14:49 Blood Culture - Final Blood Assessment and Plan (1) Leg wound, right Current Visit: Yes Status: Acute Code(s): S81.801A - UNSPECIFIED OPEN WOUND, RIGHT LOWER LEG, INITIAL ENCOUNTER SNOMED Code(s): 34029845101479014 (2) Cellulitis of right leg Current Visit: Yes Status: Acute Code(s): L03.115 - CELLULITIS OF RIGHT LOWER LIMB SNOMED Code(s): 88056035910071490 (3) Allergy to multiple antibiotics Current Visit: No Status: Acute Code(s): Z88.1 - ALLERGY STATUS TO OTHER ANTIBIOTIC AGENTS SNOMED Code(s): 683292225 (4) Leukocytosis Current Visit: No Status: Acute Code(s): D72.829 - ELEVATED WHITE BLOOD CELL COUNT, UNSPECIFIED SNOMED Code(s): 006759784 Plan: 1patient with abnormal chest x-ray concerning for opacity and question of pneumonia however the patient denies any chest pain shortness of breath or cough no fever clinically doubt pneumonia possible atelectasis 2-patient also have a wound to the right lower extremity with some skin necrosis and surrounding cellulitis could be responsible for the elevated white count 3-patient with multiple antibiotic ALLERGIES that would limit the number of antibiotic safe to use 4-patient is status post vascular surgery evaluation and bedside e debridement of the necrotic skin, 4-cultures are growing MRSA and drug-resistant Pseudomonas aeruginosa patient to continue with MRSA and Zerbaxa to cover for the Pseudomonas, did discussed with the micro lab to check sensitivity of the Pseudomonas to Zerbaxa which is currently pending, patient will continue with the vancomycin and Zerbaxa pending finalization of the culture Dictation was produced using [employer] dictation software. please excuse any grammatical, word or spelling errors.
--- NOTE | 2024-04-10 22:31 | P.PN ---
Subjective Progress Note Date: 04/10/24 Principal diagnosis: Reason for follow-up is right knee/leg laceration cellulitis Patient is a 68-year-old female with a past medical history significant for hypertension osteoarthritis fibromyalgia COPD heart failure asthma PE presenting to the hospital for double vision the patient also have recent fall with laceration to the right lower leg at the knee site that was stitched previously. On today's evaluation that is 04/10/2024, Patient is afebrile this morning p atient denies having any chest pain shortness of breath or cough, the patient is breathing comfortably on 2 L nasal cannula oxygen, patient denies any abdominal pain no diarrhea no nausea no vomiting, pain to the right knee area is currently controlled. Patient white count is 11.47, creatinine 0.5 Vanco trough is 15.1 anaerobe cultures now growing Prevotella Objective - Vital Signs Vital signs: Vital Signs Temp 99 F 04/10/24 08:00 Pulse 87 04/10/24 08:00 Resp 16 04/10/24 08:00 BP 159/70 04/10/24 08:00 Pulse Ox 90 L 04/10/24 08:45 FiO2 Intake & Output 04/09/24 04/10/24 04/10/24 18:59 06:59 18:59 Other: Voiding Method Bedside Commode Bedside Commode Bedside Commode # Voids 4 1 1 # Bowel Movements 0 - Exam GENERAL DESCRIPTION: An elderly female lying in bed in no distress RESPIRATORY SYSTEM: Unlabored breathing , decreased breath sounds at bases HEART: S1 S2 regular rate and rhythm , ABDOMEN: Soft , no tenderness EXTREMITIES: Right knee/leg area wound is currently dressed - Labs CBC & Chem 7: 04/10/24 02:45 04/10/24 02:45 Labs: Abnormal Lab Results - Last 24 Hours (Table) 04/09/24 04/10/24 04/10/24 Range/Units 02:59 02:45 02:45 WBC 10.36 H 11.47 H (4.50-10.00) X 10*3/uL RBC 3.15 L 3.20 L (4.10-5.20) X 10*6/uL Hgb 9.7 L 9.8 L (12.0-15.0) g/dL Hct 31.2 L 31.7 L (37.2-46.3) % MCV 99.0 H 99.1 H (80.0-97.0) FL MCHC 31.1 L 30.9 L (32.0-37.0) g/dL MPV 8.8 L 9.2 L (9.5-12.2) FL Immature Gran # 0.15 H 0.09 H (0.00-0.04) X 10*3/uL Neutrophils # 7.91 H 8.64 H (1.80-7.70) X 10*3/uL Lymphocytes # 0.85 L (0.90-5.00) X 10*3/uL Monocytes # 1.18 H 1.53 H (0.20-1.00) X 10*3/uL Sodium 134 L (135-145) mmol/L Creatinine 0.5 L (0.6-1.5) mg/dL BUN/Creatinine Ratio 32.00 H (12.00-20.00) Ratio Glucose 165 H (70-110) mg/dL Microbiology - Last 24 Hours (Table) 04/05/24 17:00 Anaerobic Culture - Final Knee - Right Prevotella species Porphyromonas somerae Assessment and Plan (1) Leg wound, right Current Visit: Yes Status: Acute Code(s): S81.801A - UNSPECIFIED OPEN WOUND, RIGHT LOWER LEG, INITIAL ENCOUNTER SNOMED Code(s): 35208800336223977 (2) Cellulitis of right leg Current Visit: Yes Status: Acute Code(s): L03.115 - CELLULITIS OF RIGHT LOWER LIMB SNOMED Code(s): 59245771956402394 (3) Allergy to multiple antibiotics Current Visit: No Status: Acute Code(s): Z88.1 - ALLERGY STATUS TO OTHER ANTIBIOTIC AGENTS SNOMED Code(s): 384358182 (4) Leukocytosis Current Visit: No Status: Acute Code(s): D72.829 - ELEVATED WHITE BLOOD CELL COUNT, UNSPECIFIED SNOMED Code(s): 435739157 Plan: 1patient with abnormal chest x-ray concerning for opacity and question of pneumonia however the patient denies any chest pain shortness of breath or cough no fever clinically doubt pneumonia possible atelectasis 2-patient also have a wound to the right lower extremity with some skin necrosis and surrounding cellulitis could be responsible for the elevated white count 3-patient with multiple antibiotic ALLERGIES that would limit the number of antibiotic safe to use 4-patient is status post vascular surgery evaluation and bedside e debridement of the necrotic skin, 4-cultures are growing MRSA and drug-resistant Pseudomonas aeruginosa patient to continue with MRSA and Zerbaxa to cover for the Pseudomonas, did discussed with the micro lab to check sensitivity of the Pseudomonas to Zerbaxa which is currently pending local culture now also growing anaerobe Prevotella, 5-patient will continue with the vancomycin and Zerbaxa we will add oral Flagyl to cover for the anaerobes will benefit from at least a week of IV antibiotic on discharge discussed with the DIGITAL MARKETING OFFICER for admitting team Dictation was produced using [employer] dictation software. please excuse any grammatical, word or spelling errors. Time with Patient: Less than 30
[2024-04-10] MEDS: metroNIDAZOLE 500 MG TAB PO SCH (23:46)
[2024-04-11 04:16] LABS: African American GFR (CKD) >90 (>60 ml/min/1.73 sqM); Anion Gap -1 mmol/L; Blood Urea Nitrogen 17 mg/dL (7-17); Calcium 8.8 mg/dL (8.4-10.2); Carbon Dioxide 27 mmol/L (22-30); Chloride 105 mmol/L (98-107); Glucose 88 mg/dL (74-99); Non-African American GFR(CKD) >90 (>60 ml/min/1.73 sqM); Potassium 4.9 mmol/L (3.5-5.1); Sodium 131 mmol/L (137-145)
[2024-04-11 06:00] LABS: Basophils % (A) 1 %; Eosinophils # (A) 0.1 k/uL (0-0.7); Eosinophils % (A) 1 %; HCT 29.2 % (34.0-46.0); Lymphocytes # (A) 1.3 k/uL (1.0-4.8); Lymphocytes % (A) 25 %; MCH 31.9 pg (25.0-35.0); MCHC 32.3 g/dL (31.0-37.0); MCV 98.8 fL (80.0-100.0); Mean Platelet Volume 9.2; Monocytes # (A) 0.9 k/uL (0-1.0); Monocytes % (A) 19 %; Neutrophils # (A) 2.6 k/uL (1.3-7.7); Neutrophils % (A) 52 %; Platelet Count 257 k/uL (150-450); RBC 2.96 m/uL (3.80-5.40)
[2024-04-11 07:32] LABS: HGB 9.4 gm/dL (11.4-16.0)
[2024-04-11] MEDS: ALPRAZolam 0.5 MG TAB PO PRN (09:31)
--- NOTE | 2024-04-11 13:02 | P.PN ---
Subjective HISTORY OF PRESENT ILLNESS: This is a 68-year-old female with a past medical history significant for hypertension, hypothyroidism, anxiety, bipolar disorder, depression, nicotine dependence, marijuana use, fibromyalgia, and GERD. Patient follows in the office with Dr. Last. We have been asked to see the patient in consultation for Nidia moy. Patient examined at the bedside. Patient is admitted to the hospital secondary to urinary tract infection and also right knee infection. She is receiving IV antibiotics. The patient currently denies any chest pain or pressure. She denies shortness of breath. Patient did have a run of nonsustai shu ventricular tachycardia this morning. Patient states she was asymptomatic. Patient was recently admitted to the hospital and cardiology evaluated patient for bradycardia. Her beta-nahum was discontinued at that time. DIAGNOSTICS: - EKG reveals sinus mechanism with no signs of acute ischemia - Chest xray ongoing patchy lower lung opacities and trace pleural effusions - Laboratory data: WBC 11.47. Hemoglobin 9.8. Platelet count 316. Sodium 134. Potassium 4.6. BUN 16. Creatinine 0.5. - Current home cardiac medications include amlodipine 5 mg daily - Most recent echocardiogram obtained in November 2023 revealed ejection fraction 55 to 60%, trace TR, mild concentric LVH 04/11/2024 Patient examined this morning at the bedside. Patient denies chest pain or pressure. She denies shortness of breath. Vital signs are stable. No further episodes of ventricular tachycardia. PHYSICAL EXAM: VITAL SIGNS: Reviewed. GENERAL: Well-developed in no acute distress. HEENT: Head is normocephalic. Pupils are equal, round. Sclerae anicteric. Mucous membranes of the mouth are moist. Neck supple. No JVD or thyromegaly LUNGS: Respirations even and unlabored. Lungs essentially clear to auscultation bilaterally. HEART: Regular rate and rhythm. S1 and S2 heard. ABDOMEN: Soft. Nondistended. Nontender. EXTREMITIES: Dressing to right knee noted. No clubbing or cyanosis. Peripheral pulses intact. No lower extremity edema NEUROLOGIC: Awake and alert. Oriented x 3. ASSESSMENT: Nonsustained ventricular tachycardia History of sinus bradycardia, beta-nahum recently discontinued Right knee infection, culture positive for MRSA and Pseudomonas aeruginosa Urinary tract infection, urine culture positive for Enterococcus faecalis Chronic hypoxic respiratory failure on home oxygen Fibromyalgia Hypothyroidism Anxiety Bipolar disorder Depression Nicotine dependence Marijuana use PLAN: Continue current cardiac medications Patient has had no further episodes of VT. Will not add beta-nahum as this was recently discontinued due to bradycardia and complaints of dizziness and lightheadedness. Limited echo ordered. Await results. If no significant abnormalities noted on echo, no further recommendations from a cardiac standpoint Nurse practitioner note has been reviewed by physician. Signing provider agrees with the documented findings, assessment, and plan of care documented by CLOTH LAMINATING SUPERVISOR as a scribe. Objective - Vital Signs Vital signs: Vital Signs Temp 97.8 F 04/11/24 07:29 Pulse 71 04/11/24 08:00 Resp 16 04/11/24 08:00 BP 128/56 04/11/24 07:29 Pulse Ox 98 04/11/24 07:29 FiO2 Intake & Output 04/10/24 04/11/24 04/11/24 18:59 06:59 18:59 Intake Total 118 480 Balance 118 480 Intake: Oral 118 480 Other: Voiding Method Bedside Commode Bedside Commode Bedside Commode # Voids 4 2 - Labs CBC & Chem 7: 04/11/24 02:45 04/11/24 02:45 Labs: Abnormal Lab Results - Last 24 Hours (Table) 04/10/24 04/11/24 04/11/24 Range/Units 02:45 02:45 02:45 RBC 2.96 L (3.80-5.40) m/uL Hgb 9.4 L D (11.4-16.0) gm/dL Hct 29.2 L (34.0-46.0) % Sodium 131 L (137-145) mmol/L Creatinine 0.46 L (0.52-1.04) mg/dL Magnesium 1.5 L (1.6-2.3) mg/dL 04/11/24 Range/Units 02:45 RBC (3.80-5.40) m/uL Hgb (11.4-16.0) gm/dL Hct (34.0-46.0) % Sodium (137-145) mmol/L Creatinine (0.52-1.04) mg/dL Magnesium 2.4 H (1.6-2.3) mg/dL
--- NOTE | 2024-04-11 13:48 | CA ---
Transthoracic Echo Report Name: Haydee Mcpherson Age: 68 Gender: F : 1955 Exam Date: 04/10/2024 15:24 Exam Location: [facility] Ht (in): 60 Wt (lb): 159 Ordering Physician: Torie Hansen Attending/Referring Phys: [id number], Tyrone Chemist Intern Gisella Pereyra RDCS Procedure CPT: Indications: lv function, V-tach Cardiac Hx: Technical Quality: Fair Contrast 1: Total Dose (mL): Contrast 2: Total Dose (mL): MEASUREMENTS (Male / Female) Normal Values 2D ECHO LV Diastolic Diameter PLAX 4.6 cm 4.2 - 5.9 / 3.9 - 5.3 cm LV Systolic Diameter PLAX 3.4 cm IVS Diastolic Thickness 1.1 cm 0.6 - 1.0 / 0.6 - 0.9 cm LVPW Diastolic Thickness 1.2 cm 0.6 - 1.0 / 0.6 - 0.9 cm LV Relative Wall Thickness 0.5 LV Diastolic Volume MOD BP 140.2 cm??? 67 - 155 / 56 - 104 cm??? LV Systolic Volume MOD BP 58.0 cm??? 22 - 58 / 19 - 49 cm??? LV Ejection Fraction MOD BP 58.6 % >= 55 % LV Cardiac Index MOD BP 3932.9 cm???/min???m??? LV Diastolic Volume MOD 4C 130.3 cm??? LV Systolic Volume MOD 4C 52.2 cm??? LV Ejection Fraction MOD 4C 59.9 % LV Cardiac Index MOD 4C 3736.3 cm???/min???m??? LV Diastolic Length 4C 8.5 cm LV Systolic Length 4C 7.8 cm LV Diastolic Volume MOD 2C 147.5 cm??? LV Systolic Volume MOD 2C 60.9 cm??? LV Ejection Fraction MOD 2C 58.7 % LV Cardiac Index MOD 2C 4144.3 cm???/min???m??? LV Diastolic Length 2C 8.3 cm LV Systolic Length 2C 7.3 cm FINDINGS Left Ventricle Left ventricular ejection fraction is estimated at 55-60 %. Mildly increased septal wall thickness. Mildly increased posterior wall thickness. Severely increased left ventricular diastolic volume. Mildly increased left ventricular systolic volume. No obvious regional wall motion abnormalities. Right Ventricle Normal right ventricular size and function. Right Atrium Normal right atrial size. Left Atrium Left atrial dilatation. Mitral Valve Structurally normal mitral valve. Trace mitral regurgitation. Aortic Valve Trileaflet aortic valve. Aortic valve sclerosis. No aortic valve stenosis or regurgitation. Tricuspid Valve Structurally normal tricuspid valve. No tricuspid stenosis. No tricuspid regurgitation. Pulmonic Valve Pulmonic valve not well visualized. No pulmonic stenosis. No pulmonic regurgitation. Pericardium No pericardial effusion. Aorta Aortic root and proximal ascending aorta not assessed. CONCLUSIONS Normal biventricular systolic function Previewed by: Dr. Sinan Dyer MD (Electronically Signed) Final Date: 11 April 2024 13:47
[2024-04-11 14:33] VITALS: BMI 31.0
--- NOTE | 2024-04-12 06:16 | P.PN ---
Subjective Progress Note Date: 04/11/24 This is a 68-year-old female who was recently admitted with recurrent falls, hyponatremia, concerns for cellulitis of the right knee status post fall with multiple consultations following. Patient is maintained on IV antibiotics and has received a midline this patient will continue on daptomycin along with Zerbaxa. Per case management, Sorbex and needs prior authorization which is pending at this time. Have discussed with micro lab regarding sensitivities for medication adjustments. Patient evaluated by cardiology as she had some abnormalities on EKG and echo is within normal limits and no further episodes noted on telemetry. Patient to follow-up with cardiology and continue holding beta-nahum at this time. Patient is requesting to go home although currently awaiting authorization for antibiotics. Review of systems: Constitutional: No reports of fatigue, fever, or chills Cardiovascular: No reports of chest pain or palpitations Respiratory: No reports of shortness of breath or cough GI: No reports of nausea, no reports of vomiting, no reports of diarrhea : No reports of dysuria or retention Neurovascular: reports of generalized weakness, some right knee discomfort All medications have been reviewed PHYSICAL EXAMINATION: GENERAL: The patient is alert and oriented x4, Well developed, well nourished. A little less anxious on exam, elderly appearing, obese HEENT: Pupils are round and equally reacting to light. EOMI. no scleral icterus. No conjunctival pallor. Normocephalic, atraumatic. No pharyngeal erythema. No thyromegaly. CARDIOVASCULAR: S1 and S2 muffled PULMONARY: diminished breath sounds bilaterally with no wheezing or rhonchi noted. ABDOMEN: soft. Nontender on exam. obese. non-distended, normoactive bowel sounds. No palpable organomegaly. MUSCULOSKELETAL: No joint swelling or deformity. EXTREMITIES: No cyanosis, clubbing, or pedal edema. Right knee dressing is dry and intact NEUROLOGICAL: Gross neurological examination did not reveal any focal deficits. Diffuse weakness SKIN: No rashes. Assessment: Severe hyponatremia with possible hypovolemic hyponatremia on admission, improved Significant cellulitis with necrotic skin on the right knee status post debridement with MRSA as well as resistant Pseudomonas on cultures Enterococcusfaecalis, vancomycin sensitive Generalized aches and pains with recurrent falls and generalized weakness Severe anxiety with history of anxiety GI prophylaxis DVT prophylaxis Full code Plan: Recommend to continue with current medications and management with multiple consultations following. Patient has received a midline and arranging for outpatient antibiotics for 1 week course per ID recommendations regarding the right knee cultures. Patient maintained on daptomycin and Zerbaxa and this requ ires authorization which is pending. Case management following making arrangements for discharge planning Discussed with the patient regarding anxiety and discussed with her as well as at the bedside to follow-up with primary care provider Dr. Wheeler outpatient regarding this Continue current medication regimen Patient was evaluated by cardiology underwent a 2D echo and recommend to contin ue holding beta-nahum as she was having dizziness and recurrent falls. Recommend outpatient follow-up with cardiology in 1 to 2 weeks Will discuss further with case management regarding discharge planning and authorization on antibiotics. Possible discharge in the next 24 to 48 hours The impression and plan of care has been dictated by Audrey Curtis, nurse practitioner as directed. Dr. Isaias MD I have performed a history and examination and MDM of this patient, discussed the same with the dictator, and agree with the dictator's assessment and plan as written ,documented as a scribe. Based on total visit time, I have performed more than 50% of the visit. Any additional findings or plans will be noted. Objective - Vital Signs Vital signs: Vital Signs Temp 97.8 F 04/11/24 07:29 Pulse 76 04/11/24 11:45 Resp 16 04/11/24 08:00 BP 128/56 04/11/24 07:29 Pulse Ox 98 04/11/24 07:29 FiO2 Intake & Output 04/10/24 04/11/24 04/11/24 18:59 06:59 18:59 Intake Total 118 480 Balance 118 480 Intake: Oral 118 480 Other: Voiding Method Bedside Commode Bedside Commode Bedside Commode # Voids 4 2 - Labs CBC & Chem 7: 04/11/24 02:45 04/11/24 02:45 Labs: Abnormal Lab Results - Last 24 Hours (Table) 04/11/24 04/11/24 04/11/24 Range/Units 02:45 02:45 02:45 RBC 2.96 L (3.80-5.40) m/uL Hgb 9.4 L D (11.4-16.0) gm/dL Hct 29.2 L (34.0-46.0) % Sodium 131 L (137-145) mmol/L Creatinine 0.46 L (0.52-1.04) mg/dL Magnesium 2.4 H (1.6-2.3) mg/dL
--- NOTE | 2024-04-12 08:42 | P.PN ---
Subjective Progress Note Date: 04/11/24 Principal diagnosis: Reason for follow-up is right knee/leg laceration cellulitis Patient is a 68-year-old female with a past medical history significant for hypertension osteoarthritis fibromyalgia COPD heart failure asthma PE presenting to the hospital for double vision the patient also have recent fall with laceration to the right lower leg at the knee site that was stitched previously. On today's evaluation that is 04/11/2024,the patient denies any fever or any chills, patient is breathing comfortably on 2 L nasal cannula oxygen the patient denies chest pain shortness of breath and no significant cough, patient denies abdominal pain, no nausea vomiting or diarrhea. Pain to the right knee wound area has slightly decreased in intensity. Patient white normalized to 5.0, creatinine 0.46, Pseudomonas sensitivities on Zerbaxa requested came back Pseudomonas is sensitive to it Objective - Vital Signs Vital signs: Vital Signs Temp 97.8 F 04/11/24 07:29 Pulse 76 04/11/24 11:45 Resp 16 04/11/24 08:00 BP 128/56 04/11/24 07:29 Pulse Ox 98 04/11/24 07:29 FiO2 Intake & Output 04/10/24 04/11/24 04/11/24 18:59 06:59 18:59 Intake Total 118 480 Balance 118 480 Intake: Oral 118 480 Other: Voiding Method Bedside Commode Bedside Commode Bedside Commode # Voids 4 2 - Exam GENERAL DESCRIPTION: An elderly female lying in bed in no distress RESPIRATORY SYSTEM: Unlabored breathing , decreased breath sounds at bases HEART: S1 S2 regular rate and rhythm , ABDOMEN: Soft , no tenderness EXTREMITIES: Right knee/leg area wound is currently dressed - Labs CBC & Chem 7: 04/11/24 02:45 04/11/24 02:45 Labs: Abnormal Lab Results - Last 24 Hours (Table) 04/10/24 04/11/24 04/11/24 Range/Units 02:45 02:45 02:45 RBC 2.96 L (3.80-5.40) m/uL Hgb 9.4 L D (11.4-16.0) gm/dL Hct 29.2 L (34.0-46.0) % Sodium 131 L (137-145) mmol/L Creatinine 0.46 L (0.52-1.04) mg/dL Magnesium 1.5 L (1.6-2.3) mg/dL 04/11/24 Range/Units 02:45 RBC (3.80-5.40) m/uL Hgb (11.4-16.0) gm/dL Hct (34.0-46.0) % Sodium (137-145) mmol/L Creatinine (0.52-1.04) mg/dL Magnesium 2.4 H (1.6-2.3) mg/dL Assessment and Plan (1) Leg wound, right Current Visit: Yes Status: Acute Code(s): S81.801A - UNSPECIFIED OPEN WOUND, RIGHT LOWER LEG, INITIAL ENCOUNTER SNOMED Code(s): 75844339749516773 (2) Cellulitis of right leg Current Visit: Yes Status: Acute Code(s): L03.115 - CELLULITIS OF RIGHT LOWER LIMB SNOMED Code(s): 40385751031177913 (3) Allergy to multiple antibiotics Current Visit: No Status: Acute Code(s): Z88.1 - ALLERGY STATUS TO OTHER ANTIBIOTIC AGENTS SNOMED Code(s): 677905207 (4) Leukocytosis Current Visit: No Status: Acute Code(s): D72.829 - ELEVATED WHITE BLOOD CELL COUNT, UNSPECIFIED SNOMED Code(s): 828235862 Plan: 1patient with abnormal chest x-ray concerning for opacity and question of pneumonia however the patient denies any chest pain shortness of breath or cough no fever clinically doubt pneumonia possible atelectasis 2-patient also have a wound to the right lower extremity with some skin necrosis and surrounding cellulitis could be responsible for the elevated white count 3-patient with multiple antibiotic ALLERGIES that would limit the number of antibiotic safe to use 4-patient is status post vascular surgery evaluation and bedside e debridement of the necrotic skin, 4-cultures are growing MRSA and drug-resistant Pseudomonas aeruginosa along with anaerobe Prevotella, Pseudomonas is sensitive only to gentamicin/tobramycin and amikacin keeping in mind the patient age she would be high risk of nep hrotoxicity from using tobramycin and gentamicin, the patient Pseudomonas is sensitive to Zerbaxa which would be a safer drug to use in the outpatient setting currently waiting for insurance approval she is on vancomycin plan to switch that to daptomycin on discharge as high risk for nephrotoxicity with IV vancomycin on discharge continue with the Flagyl once antibiotic arranged she will be able to go home from ID standpoint Dictation was produced using [employer] dictation software. please excuse any grammatical, word or spelling errors. Time with Patient: Less than 30
--- NOTE | 2024-04-12 11:01 | P.PN ---
Subjective HISTORY OF PRESENT ILLNESS: This is a 68-year-old female with a past medical history significant for hypertension, hypothyroidism, anxiety, bipolar disorder, depression, nicotine dependence, marijuana use, fibromyalgia, and GERD. Patient follows in the office with Dr. Last. We have been asked to see the patient in consultation for Nidia moy. Patient examined at the bedside. Patient is admitted to the hospital secondary to urinary tract infection and also right knee infection. She is receiving IV antibiotics. The patient currently denies any chest pain or pressure. She denies shortness of breath. Patient did have a run of nonsustai shu ventricular tachycardia this morning. Patient states she was asymptomatic. Patient was recently admitted to the hospital and cardiology evaluated patient for bradycardia. Her beta-nahum was discontinued at that time. DIAGNOSTICS: - EKG reveals sinus mechanism with no signs of acute ischemia - Chest xray ongoing patchy lower lung opacities and trace pleural effusions - Laboratory data: WBC 11.47. Hemoglobin 9.8. Platelet count 316. Sodium 134. Potassium 4.6. BUN 16. Creatinine 0.5. - Current home cardiac medications include amlodipine 5 mg daily - Most recent echocardiogram obtained in November 2023 revealed ejection fraction 55 to 60%, trace TR, mild concentric LVH 04/11/2024 Patient examined this morning at the bedside. Patient denies chest pain or pressure. She denies shortness of breath. Vital signs are stable. No further episodes of ventricular tachycardia. 04/12/2024 Patient examined this morning the bedside. Patient denies chest pain or pressure. She denies shortness of breath. Echocardiogram completed revealing ejection fraction 55 to 60% with trace MR. PHYSICAL EXAM: VITAL SIGNS: Reviewed. GENERAL: Well-developed in no acute distress. HEENT: Head is normocephalic. Pupils are equal, round. Sclerae anicteric. Mucous membranes of the mouth are moist. Neck supple. No JVD or thyromegaly LUNGS: Respirations even and unlabored. Lungs essentially clear to auscultation bilaterally. HEART: Regular rate and rhythm. S1 and S2 heard. ABDOMEN: Soft. Nondistended. Nontender. EXTREMITIES: Dressing to right knee noted. No clubbing or cyanosis. Peripheral pulses intact. No lower extremity edema NEUROLOGIC: Awake and alert. Oriented x 3. ASSESSMENT: Nonsustained ventricular tachycardia History of sinus bradycardia, beta-nahum recently discontinued Right knee infection, culture positive for MRSA and Pseudomonas aeruginosa Urinary tract infection, urine culture positive for Enterococcus faecalis Chronic hypoxic respiratory failure on home oxygen Fibromyalgia Hypothyroidism Anxiety Bipolar disorder Depression Nicotine dependence Marijuana use PLAN: Continue current cardiac medications Patient has had no further episodes of VT. Will not add beta-nahum as this was recently discontinued due to bradycardia and complaints of dizziness and lightheadedness. No further inpatient recommendations from a cardiac standpoint We will sign off. Please reconsult if needed. Nurse practitioner note has been reviewed by physician. Signing provider agrees with the documented findings, assessment, and plan of care documented by HEAD OF GEOGRAPHY as a scribe. Objective - Vital Signs Vital signs: Vital Signs Temp 98.0 F 04/12/24 07:22 Pulse 85 04/12/24 07:22 Resp 22 04/12/24 07:22 BP 158/79 04/12/24 07:22 Pulse Ox 95 04/12/24 08:09 FiO2 Intake & Output 04/11/24 04/12/24 04/12/24 18:59 06:59 18:59 Intake Total 240 360 Balance 240 360 Weight 72.121 kg Intake: Oral 240 360 Other: Voiding Method Bedside Commode Bedside Commode Bedside Commode # Voids 1 3 - Labs CBC & Chem 7: 04/11/24 02:45 04/11/24 02:45
[2024-04-12] MEDS: SENNOSIDES 8.6 MG TAB PO PRN (13:29)
--- NOTE | 2024-04-13 05:31 | P.PN ---
Subjective Progress Note Date: 04/12/24 This is a 68-year-old female who was recently admitted with recurrent falls, hyponatremia, concerns for cellulitis of the right knee status post fall with multiple consultations following. Patient is maintained on IV antibiotics and has received a midline this patient will continue on daptomycin along with Zerbaxa. Per case management, Sorbex and needs prior authorization which is pending at this time. Have discussed with micro lab regarding sensitivities for medication adjustments. Patient evaluated by cardiology as she had some abnormalities on EKG and echo is within normal limits and no further episodes noted on telemetry. Patient to follow-up with cardiology and continue holding beta-nahum at this time. Patient is requesting to go home although currently awaiting authorization for antibiotics. 04/12/2024 Patient is seen and evaluated in follow-up today continuing to await for ins urance authorization for Zerbaxa to be improved. Patient with generalized weakness and high risk for falls have discussed also possible backup option of going to ECF for continued IV antibiotics and continued PT/OT therapy. Patient would like to go home although is somewhat agreeable if required to do so. Case management following as prior authorization was submitted for this medication. Patient has received a midline and will require a week of antibiotics on discharge per ID recommendations. Patient is afebrile with no reports of chest pain or palpitations at this time. Encouraged to increase activity as tolerated. Review of systems: Constitutional: No reports of fatigue, fever, or chills Cardiovascular: No reports of chest pain or palpitations Respiratory: No reports of shortness of breath or cough GI: No reports of nausea, no reports of vomiting, no reports of diarrhea : No reports of dysuria or retention Neurovascular: reports of generalized weakness, some right knee discomfort All medications have been reviewed PHYSICAL EXAMINATION: GENERAL: The patient is alert and oriented x4, Well developed, well nourished. A little less anxious on exam, elderly appearing, obese HEENT: Pupils are round and equally reacting to light. EOMI. no scleral icterus. No conjunctival pallor. Normocephalic, atraumatic. No pharyngeal erythema. No thyromegaly. CARDIOVASCULAR: S1 and S2 muffled PULMONARY: diminished breath sounds bilaterally with no wheezing or rhonchi noted. ABDOMEN: soft. Nontender on exam. obese. non-distended, normoactive bowel sounds. No palpable organomegaly. MUSCULOSKELETAL: No joint swelling or deformity. EXTREMITIES: No cyanosis, clubbing, or pedal edema. Right knee dressing is dry and intact NEUROLOGICAL: Gross neurological examination did not reveal any focal deficits. Diffuse weakness SKIN: No rashes. Assessment: Severe hyponatremia with possible hypovolemic hyponatremia on admission, improved Significant cellulitis with necrotic skin on the right knee status post debridement with MRSA as well as resistant Pseudomonas on cultures Enterococcusfaecalis, vancomycin sensitive Generalized aches and pains with recurrent falls and generalized weakness Severe anxiety with history of anxiety GI prophylaxis DVT prophylaxis Full code Plan: Recommend to continue with current medications and management with multiple consultations following. Patient has received a midline and arranging for outpatient antibiotics for 1 week course per ID recommendations regarding the right knee cultures. Patient maintained on daptomycin and Zerbaxa and this requires authorization which is pending. Case management following making arrangements for discharge planning Discussed with the patient regarding anxiety and discussed with her as well as at the bedside to follow-up with primary care provider Dr. Wheeler outpatient regarding this Continue current medication regimen Patient was evaluated by cardiology underwent a 2D echo and recommend to continue holding beta-nahum as she was having dizziness and recurrent falls. Recommend outpatient follow-up with cardiology in 1 to 2 weeks Will discuss further with case management regarding discharge planning and authorization on antibiotics. Possible discharge in the next 24 to 48 hours to either home with home care or possible ECF The impression and plan of care has been dictated by Audrey Curtis, nurse practitioner as directed. Dr. Isaias MD I have performed a history and examination and MDM of this patient, discussed the same with the dictator, and agree with the dictator's assessment and plan as written ,documented as a scribe. Based on total visit time, I have performed more than 50% of the visit. Any additional findings or plans will be noted. Objective - Vital Signs Vital signs: Vital Signs Temp 98.0 F 04/12/24 07:22 Pulse 85 04/12/24 07:22 Resp 22 04/12/24 07:22 BP 158/79 04/12/24 07:22 Pulse Ox 95 04/12/24 08:09 FiO2 Intake & Output 04/11/24 04/12/24 04/12/24 18:59 06:59 18:59 Intake Total 240 360 Balance 240 360 Weight 72.121 kg Intake: Oral 240 360 Other: Voiding Method Bedside Commode Bedside Commode Bedside Commode # Voids 1 3 - Labs CBC & Chem 7: 04/11/24 02:45 04/11/24 02:45 Labs: Abnormal Lab Results - Last 24 Hours (Table) 04/11/24 Range/Units 02:45 Magnesium 2.4 H (1.6-2.3) mg/dL
[2024-04-13 07:25] VITALS: TEMP 98.5
[2024-04-13] MEDS: VANCOMYCIN TROUGH DUE 1 EACH MISC MISCELLANE ONE (10:56)
--- NOTE | 2024-04-13 13:45 | P.PN ---
Subjective Progress Note Date: 04/12/24 Principal diagnosis: Reason for follow-up is right knee/leg laceration cellulitis Patient is a 68-year-old female with a past medical history significant for hypertension osteoarthritis fibromyalgia COPD heart failure asthma PE presenting to the hospital for double vision the patient also have recent fall with laceration to the right lower leg at the knee site that was stitched previously. On today's evaluation that is 04/12/2024,the patient remains to be afebrile, patient is on 3 L nasal cannula supplemental oxygen and denies any shortness of breath no chest pain or cough.Patient denies having any nausea or vomiting, no abdominal pain and no diarrhea, pain to the right knee area is currently controlled. Patient white count has normalized to 5.0 as of yesterday no CBC was done today and creatinine is 0.46 Vanco trough is 13.1 Objective - Vital Signs Vital signs: Vital Signs Temp 98.0 F 04/12/24 07:22 Pulse 78 04/12/24 12:08 Resp 22 04/12/24 07:22 BP 158/79 04/12/24 07:22 Pulse Ox 95 04/12/24 08:09 FiO2 Intake & Output 04/11/24 04/12/24 04/12/24 18:59 06:59 18:59 Intake Total 240 360 Balance 240 360 Weight 72.121 kg Intake: Oral 240 360 Other: Voiding Method Bedside Commode Bedside Commode Bedside Commode # Voids 1 3 - Exam GENERAL DESCRIPTION: An elderly female lying in bed in no distress RESPIRATORY SYSTEM: Unlabored breathing , decreased breath sounds at bases HEART: S1 S2 regular rate and rhythm , ABDOMEN: Soft , no tenderness EXTREMITIES: Right knee/leg area wound is currently dressed - Labs CBC & Chem 7: 04/11/24 02:45 04/11/24 02:45 Assessment and Plan (1) Leg wound, right Current Visit: Yes Status: Acute Code(s): S81.801A - UNSPECIFIED OPEN WOUND, RIGHT LOWER LEG, INITIAL ENCOUNTER SNOMED Code(s): 10195430514801260 (2) Cellulitis of right leg Current Visit: Yes Status: Acute Code(s): L03.115 - CELLULITIS OF RIGHT LOWER LIMB SNOMED Code(s): 81221735423050491 (3) Allergy to multiple antibiotics Current Visit: No Status: Acute Code(s): Z88.1 - ALLERGY STATUS TO OTHER ANTIBIOTIC AGENTS SNOMED Code(s): 389342179 (4) Leukocytosis Current Visit: No Status: Acute Code(s): D72.829 - ELEVATED WHITE BLOOD CELL COUNT, UNSPECIFIED SNOMED Code(s): 514882515 Plan: 1patient with abnormal chest x-ray concerning for opacity and question of pneumonia however the patient denies any chest pain shortness of breath or cough no fever clinically doubt pneumonia possible atelectasis 2-patient also have a wound to the right lower extremity with some skin necrosis and surrounding cellulitis could be responsible for the elevated white count 3-patient with multiple antibiotic ALLERGIES that would limit the number of antibiotic safe to use 4-patient is status post vascular surgery evaluation and bedside e debridement of the necrotic skin, 4-cultures are growing MRSA and drug-resistant Pseudomonas aeruginosa along with anaerobe Prevotella, Pseudomonas is sensitive only to gentamicin/tobramycin and amikacin, patient is currently covered with the Zerbaxa and vancomycin and Flagyl to continue currently waiting for insurance authorization for outpatient IV antibiotics Dictation was produced using [employer] dictation software. please excuse any grammatical, word or spelling errors. Time with Patient: Less than 30
--- NOTE | 2024-04-13 13:46 | P.PN ---
Subjective Progress Note Date: 04/13/24 Principal diagnosis: Reason for follow-up is right knee/leg laceration cellulitis Patient is a 68-year-old female with a past medical history significant for hypertension osteoarthritis fibromyalgia COPD heart failure asthma PE presenting to the hospital for double vision the patient also have recent fall with laceration to the right lower leg at the knee site that was stitched previously. On today's evaluation that is 04/13/2024, the patient continues to be afebrile, the patient is on 3 L nasal cannula oxygen r and breathing comfortably, the Pt denies having any chest pain or cough, the patient denies having any abdominal pain no vomiting or any diarrhea pain to the right knee is currently controlled. No new lab has been repeated today Objective - Vital Signs Vital signs: Vital Signs Temp 98.5 F 04/13/24 07:24 Pulse 85 04/13/24 10:35 Resp 15 04/13/24 07:24 BP 148/77 04/13/24 10:35 Pulse Ox 94 L 04/13/24 09:50 FiO2 Intake & Output 04/12/24 04/13/24 04/13/24 18:59 06:59 18:59 Other: Voiding Method Bedside Commode Bedside Commode Bedside Commode # Voids 1 2 - Exam GENERAL DESCRIPTION: An elderly female lying in bed in no distress RESPIRATORY SYSTEM: Unlabored breathing , decreased breath sounds at bases HEART: S1 S2 regular rate and rhythm , ABDOMEN: Soft , no tenderness EXTREMITIES: Right knee/leg area wound is drying out surrounding redness decreased - Labs CBC & Chem 7: 04/11/24 02:45 04/11/24 02:45 Labs: Microbiology - Last 24 Hours (Table) 04/05/24 10:16 Gram Stain - Final Knee - Right Wound Culture - Final Methicillin resist S. aureus Pseudomonas aeruginosa Assessment and Plan (1) Leg wound, right Current Visit: Yes Status: Acute Code(s): S81.801A - UNSPECIFIED OPEN WOUND, RIGHT LOWER LEG, INITIAL ENCOUNTER SNOMED Code(s): 16247675062415210 (2) Cellulitis of right leg Current Visit: Yes Status: Acute Code(s): L03.115 - CELLULITIS OF RIGHT LOWER LIMB SNOMED Code(s): 90602076414824984 (3) Allergy to multiple antibiotics Current Visit: No Status: Acute Code(s): Z88.1 - ALLERGY STATUS TO OTHER ANTIBIOTIC AGENTS SNOMED Code(s): 183266856 (4) Leukocytosis Current Visit: No Status: Acute Code(s): D72.829 - ELEVATED WHITE BLOOD CELL COUNT, UNSPECIFIED SNOMED Code(s): 536793809 Plan: 1patient with abnormal chest x-ray concerning for opacity and question of pneumonia however the patient denies any chest pain shortness of breath or cough no fever clinically doubt pneumonia possible atelectasis 2-patient also have a wound to the right lower extremity with some skin necrosis and surrounding cellulitis could be responsible for the elevated white count 3-patient with multiple antibiotic ALLERGIES that would limit the number of antibiotic safe to use 4-patient is status post vascular surgery evaluation and bedside e debridement of the necrotic skin, 4-cultures are growing MRSA and drug-resistant Pseudomonas aeruginosa along with anaerobe Prevotella, Pseudomonas is sensitive only to gentamicin/tobramycin and Zerbaxa, 5-patient has been advised a week of IV vancomycin/daptomycin Zerbaxa and Flagyl to finish her course of treatment local wound care with dry Aquacel dressing and close outpatient follow-up Dictation was produced using [employer] dictation software. please excuse any grammatical, word or spelling errors. Time with Patient: Less than 30
[2024-04-13 14:21] VITALS: BP 155/72; RESP 16
--- NOTE | 2024-04-13 14:49 | PN ---
PROGRESS NOTE A 68-year-old female patient had a traumatic wound right knee. We did the debridement. The wound is granulating. The patient is under care of Infectious Disease. We have been using Aquacel silver for the wound, which will be changed every 48 hours. If the patient goes home tomorrow, then I will see her back in the wound clinic on Wednesday. PREM / CINDI: [id number] /
[2024-04-13 15:55] VITALS: PULSE 90
[2024-04-13] MEDS ORDERED: VANCOMYCIN 1,500 MG in SODIUM CHLORIDE 0.9% 500 ML 500 ML IVPB SCH (21:00)
--- NOTE | 2024-04-14 14:17 | P.DS ---
Providers Date of admission: 04/04/24 07:32 Expected date of discharge: 04/13/24 Attending physician: Megan Esparza Consults: 04/01/24 17:48 Consult Physician Routine Consulting Provider: Gigi Hampton Consult Reason/Comments: hypoNa Do you want consulting provider notified?: Yes 04/03/24 13:35 Consult Physician Routine Consulting Provider: Shaw Brannon Consult Reason/Comments: pneumonia Do you want consulting provider notified?: Yes Consult Physician Routine Consulting Provider: Briseida Mcdonald Consult Reason/Comments: pneumonia Do you want consulting provider notified?: Yes 04/04/24 12:57 Consult Physician Routine Consulting Provider: Alphonso Ramon Consult Reason/Comments: right leg wound , debridemnt and deep cultures Do you want consulting provider notified?: Yes 04/10/24 09:57 Consult Physician Urgent Consulting Provider: Bradford Goode Consult Reason/Comments: 10 beat run of v tach on tele Do you want consulting provider notified?: Yes Primary care physician: Andrzej Wheeler Hospital Course: Final diagnosis Severe hyponatremia with possible hypovolemic hyponatremia on admission, improved Significant cellulitis with necrotic skin on the right knee status post debridement with MRSA as well as resistant Pseudomonas on cultures Enterococcusfaecalis, vancomycin sensitive Generalized aches and pains with recurrent falls and generalized weakness Severe anxiety with history of anxiety GI prophylaxis DVT prophylaxis Full code Discharge disposition Patient is being discharged in a stable condition with guarded prognosis to home with home care. Patient will follow-up with Dr. Andrzej Wheeler in the outpatient setting upon discharge. Patient is to continue with IV antibiotic therapy per ID recommendations in the form of Zerbaxa and daptomycin along with oral Flagyl and close outpatient follow-up with nephrology and cardiology as scheduled. Total time taken is greater than 35 minutes. Hospital course This is a 68-year-old female who was recently admitted with hyponatremia and weakness with falls with concerns of a right knee infection and cellulitis from previous fall 1 week prior. Patient was evaluated by vascular surgery along with infectious disease and underwent debridement of the right knee and culture showing MRSA with Pseudomonas with minimal sensitivities and MRSA. Patient will continue on IV verb Exa along with daptomycin on discharge for 1 week course. Patient to continue with oral Flagyl outpatient as well. Patient with extreme anxiety and uncontrolled pain recommend close outpatient follow-up with primary care provider this week. Patient was denied going to rehab and will be going home with home care. Please refer to other consultation notes for further HPI. Currently no reports of chest pain, shortness of breath, or palpitations. Patient is afebrile. No reports of nausea or vomiting and patient is tolerating diet. Patient will be discharged home today. Guarded prognosis and high risk for readmissions given patient's noncompliance to medications along with significant comorbidities and high risk for falls. Physical exam: Gen: This is a 68-year-old female who is awake, alert and oriented x 3, well- developed, elderly appearing, obese HEENT: Head is atraumatic, normocephalic. Pupils equal, round. Sclerae is anicteric. NECK: Supple. No JVD. No lymphadenopathy. No thyromegaly. LUNGS: Clear to auscultation. No wheezes or rhonchi. No intercostal retractions. HEART: Regular rate and rhythm. No murmur. ABDOMEN: Soft. Bowel sounds are present. No masses. No tenderness. EXTREMITIES: No pedal edema. No calf tenderness. Right knee dressing is dry and intact with no significant swelling noted NEUROLOGICAL: Patient is awake, alert and oriented x3. Cranial nerves 2 through 12 are grossly intact. Please refer to medication reconciliation sheet for a list of medications. The impression and plan of care has been dictated by Audrey Curtis, Nurse Practitioner as directed. Dr. Micky MD I have performed a history and examination and MDM of this patient, discussed the same with the dictator, and agree with the dictator's assessment and plan as written ,documented as a scribe. Based on total visit time, I have performed more than 50% of the visit. Patient Condition at Discharge: Fair Plan - Discharge Summary Discharge Rx Participant: No New Discharge Prescriptions: New metroNIDAZOLE [Flagyl] 500 mg PO TID 7 Days #21 tab Nicotine 14Mg/24Hr Patch [Habitrol] 1 patch TRANSDERM DAILY patch Collagenase [Santyl Ointment] 1 applic TOPICAL DAILY each Sennosides [Senokot] 8.6 mg PO BID PRN tab PRN Reason: Constipation QUEtiapine [SEROquel] 25 mg PO BID 30 Days #60 tab Ceftolozane/Tazobactam [Zerbaxa 1.5 Gram Vial] 3 gm IV Q8HR 7 Days #21 each Continue Montelukast [Singulair] 10 mg PO HS Levothyroxine Sodium [Synthroid] 150 mcg PO DAILY Thiamine [Vitamin B-1] 100 mg PO DAILY@1700 Ipratropium-Albuterol Nebulize [Duoneb 0.5 mg-3 mg/3 ml Soln] 3 ml INHALATION RT-QID PRN PRN Reason: Shortness Of Breath clonazePAM [KlonoPIN ODT] 0.25 mg PO HS OLANZapine [ZyPREXA] 15 mg PO HS Albuterol Nebulized [Ventolin Nebulized] 5 mg INHALATION RT-QID PRN #60 each PRN Reason: Shortness Of Breath Or Wheezing lamoTRIgine [LaMICtal] 150 mg PO BID Pyridoxine [Vitamin B-6] 50 mg PO DAILY #30 tab Divalproex ER [Depakote ER] 500 mg PO HS #60 tab Budesonide/Formoterol Fumarate [Symbicort 160-4.5 Mcg Inhaler] 2 puff INHALATION RT-BID Famotidine [Pepcid] 20 mg PO BID Tamsulosin [Flomax] 0.4 mg PO DAILY@1200 Ferrous Sulfate [Iron (65 MG Elemental)] 325 mg PO DAILY Albuterol Inhaler [Ventolin Hfa Inhaler] 2 puff INHALATION RT-QID PRN #1 each PRN Reason: Shortness Of Breath Melatonin 5 mg PO HS PRN PRN Reason: Insomnia Ibandronate Sodium [Boniva] 150 mg PO Q30D Acetaminophen [Tylenol Arthritis] 650 mg PO Q4HR PRN PRN Reason: Pain amLODIPine [Norvasc] 5 mg PO DAILY HYDROcodone/APAP 5-325MG [[place] 5-325] 1 tab PO Q6HR PRN 3 Days #12 tab PRN Reason: Pain hydrOXYzine HCL [Atarax] 25 mg PO BID Folic Acid 1 mg PO DAILY@1700 Venlafaxine HCl ER [Effexor XR] 150 mg PO DAILY Gabapentin 300 mg PO TID Discharge Medication List Montelukast [Singulair] 10 mg PO HS 12/17/13 [History] Levothyroxine Sodium [Synthroid] 150 mcg PO DAILY 03/29/20 [History] Budesonide/Formoterol Fumarate [Symbicort 160-4.5 Mcg Inhaler] 2 puff INHALATION RT-BID 06/12/21 [History] Famotidine [Pepcid] 20 mg PO BID 09/03/21 [History] Tamsulosin [Flomax] 0.4 mg PO DAILY@1200 10/26/21 [History] Ferrous Sulfate [Iron (65 MG Elemental)] 325 mg PO DAILY 11/13/22 [History] Ipratropium-Albuterol Nebulize [Duoneb 0.5 mg-3 mg/3 ml Soln] 3 ml INHALATION RT-QID PRN 11/13/22 [History] Thiamine [Vitamin B-1] 100 mg PO DAILY@1700 11/13/22 [History] Albuterol Inhaler [Ventolin Hfa Inhaler] 2 puff INHALATION RT-QID PRN #1 each 11/17/22 [Rx] Ibandronate Sodium [Boniva] 150 mg PO Q30D 05/03/23 [History] Melatonin 5 mg PO HS PRN 05/03/23 [History] Acetaminophen [Tylenol Arthritis] 650 mg PO Q4HR PRN 10/24/23 [History] amLODIPine [Norvasc] 5 mg PO DAILY 12/12/23 [History] clonazePAM [KlonoPIN ODT] 0.25 mg PO HS 12/12/23 [History] OLANZapine [ZyPREXA] 15 mg PO HS 01/22/24 [History] Albuterol Nebulized [Ventolin Nebulized] 5 mg INHALATION RT-QID PRN #60 each 01/24/24 [Rx] HYDROcodone/APAP 5-325MG [[place] 5-325] 1 tab PO Q6HR PRN 3 Days #12 tab 03/15/24 [Rx] Folic Acid 1 mg PO DAILY@1700 03/18/24 [History] Venlafaxine HCl ER [Effexor XR] 150 mg PO DAILY 03/18/24 [History] hydrOXYzine HCL [Atarax] 25 mg PO BID 03/18/24 [History] lamoTRIgine [LaMICtal] 150 mg PO BID 03/18/24 [History] Divalproex ER [Depakote ER] 500 mg PO HS #60 tab 03/28/24 [Rx] Pyridoxine [Vitamin B-6] 50 mg PO DAILY #30 tab 09/10/24 [Rx] Gabapentin 300 mg PO TID 04/09/24 [History] Ceftolozane/Tazobactam [Zerbaxa 1.5 Gram Vial] 3 gm IV Q8HR 7 Days #21 each 04/13/24 [Rx] Collagenase [Santyl Ointment] 1 applic TOPICAL DAILY each 04/13/24 [Rx] Nicotine 14Mg/24Hr Patch [Habitrol] 1 patch TRANSDERM DAILY patch 04/13/24 [Rx] QUEtiapine [SEROquel] 25 mg PO BID 30 Days #60 tab 04/13/24 [Rx] Sennosides [Senokot] 8.6 mg PO BID PRN tab 04/13/24 [Rx] metroNIDAZOLE [Flagyl] 500 mg PO TID 7 Days #21 tab 04/13/24 [Rx] Follow up Appointment(s)/Referral(s): Andrzej Wheeler MD [Primary Care Provider] - 1-2 days (MUST SEE DR. WHEELER IN ORDER TO HAVE HOME CARE ) [facility], [NON-STAFF] - () [facility], [REFERRING] - Patient Instructions/Handouts: Hyponatremia (DC), Weakness (DC) Activity/Diet/Wound Care/Special Instructions: Activity limited until follow-up Follow-up with primary care provider on discharge Continue with antibiotic therapy per ID recommendations Follow-up with vascular surgery Dr. Ramon outpatient clinic Follow-up with nephrology outpatient Follow-up with cardiology outpatient Discharge Disposition: HOME WITH HOME HEALTH SERVICES
== END 2024-04-13 17:30 | disposition home health service (06) | DRG 623 ==
LOC: EC 15:50 → 6NMEDSUR 17:50 → OBSVTOIN 04-04 07:32
PROVIDERS: ADMIT Hospitalist; ATTEND Hospitalist
PROC: 0JBN0ZZ Excision of Right Lower Leg Subcutaneous Tissue and Fascia, Open Approach (ICD-10-PCS; principal; 2024-04-05)
PROC: 05HB33Z Insertion of Infusion Device into Right Basilic Vein, Percutaneous Approach (ICD-10-PCS; 2024-04-11)
DX: E87.1 Hypo-osmolality and hyponatremia (principal); I47.20 Ventricular tachycardia, unspecified; J96.11 Chronic respiratory failure with hypoxia; I96 Gangrene, not elsewhere classified; L02.415 Cutaneous abscess of right lower limb; L03.115 Cellulitis of right lower limb; Z16.24 Resistance to multiple antibiotics; N39.0 Urinary tract infection, site not specified; I11.0 Hypertensive heart disease with heart failure; I50.9 Heart failure, unspecified; J44.9 Chronic obstructive pulmonary disease, unspecified; F31.9 Bipolar disorder, unspecified; S81.811A Laceration without foreign body, right lower leg, initial encounter; Z99.81 Dependence on supplemental oxygen; E03.9 Hypothyroidism, unspecified; Z91.148 Patient's other noncompliance with medication regimen for other reason; H53.2 Diplopia; F17.210 Nicotine dependence, cigarettes, uncomplicated; E86.1 Hypovolemia; F41.9 Anxiety disorder, unspecified; K21.9 Gastro-esophageal reflux disease without esophagitis; G89.29 Other chronic pain; M48.02 Spinal stenosis, cervical region; M79.7 Fibromyalgia; R29.6 Repeated falls; B96.5 Pseudomonas (aeruginosa) (mallei) (pseudomallei) as the cause of diseases classified elsewhere; B95.62 Methicillin resistant Staphylococcus aureus infection as the cause of diseases classified elsewhere; B95.2 Enterococcus as the cause of diseases classified elsewhere; W19.XXXA Unspecified fall, initial encounter; Z91.81 History of falling; Z88.1 Allergy status to other antibiotic agents; Z79.51 Long term (current) use of inhaled steroids; Z79.890 Hormone replacement therapy; Z79.899 Other long term (current) drug therapy; Z86.711 Personal history of pulmonary embolism; Z87.19 Personal history of other diseases of the digestive system; Z98.84 Bariatric surgery status; Z88.0 Allergy status to penicillin; Z88.2 Allergy status to sulfonamides
CPT/HCPCS: 36410; 36415; 70450; 71046; 71275; 76937; 80048; 80053; 80202; 80306; 81001; 82565; 83605; 83735; 83880; 83930; 83935; 84100; 84145; 84295; 84300; 84439; 84443; 84484; 85025; 85027; 85379; 85610; 85652; 85730; 86140; 87040; 87070; 87075; 87077; 87086; 87186; 87205; 93005; 93308; 94640; 94760; 96360; 96361; 99291

== ENCOUNTER 2024-04-15 14:22 | Emergency (ER) | payer MEDICARE ==
[2024-04-15 14:28] VITALS: TEMP 97.9
--- NOTE | 2024-04-15 14:57 | ED ---
Recheck HPI - General Chief Complaint: Recheck/Abnormal Lab/Rx Stated Complaint: R arm issue Time Seen by Provider: 04/15/24 14:33 Source: patient, RN notes reviewed Mode of arrival: ambulatory Limitations: no limitations - History of Present Illness Initial Comments: This is a 68-year-old female who presents to the emergency department for problems with her midline. Patient has a midline in the right arm and is supposed to be getting Zerbaxa infusions daily. Her was unable to get the syringe to move when he tried to flush it. They called the [employer] for assistance and a visiting nurse came by the house, however they were also unable to get it to work, prompting them to come to the emergency department today. - Related Data Home Medications Medication Instructions Recorded Confirmed Montelukast [Singulair] 10 mg PO HS 12/17/13 04/01/24 Levothyroxine Sodium [Synthroid] 150 mcg PO DAILY 03/29/20 04/01/24 Budesonide/Formoterol Fumarate 2 puff INHALATION RT-BID 06/12/21 04/01/24 [Symbicort 160-4.5 Mcg Inhaler] Famotidine [Pepcid] 20 mg PO BID 09/03/21 04/01/24 Tamsulosin [Flomax] 0.4 mg PO DAILY@1200 10/26/21 04/01/24 Ferrous Sulfate [Iron (65 MG 325 mg PO DAILY 11/13/22 04/01/24 Elemental)] Ipratropium-Albuterol Nebulize 3 ml INHALATION RT-QID PRN 11/13/22 04/01/24 [Duoneb 0.5 mg-3 mg/3 ml Soln] Thiamine [Vitamin B-1] 100 mg PO DAILY@1700 11/13/22 04/01/24 Ibandronate Sodium [Boniva] 150 mg PO Q30D 05/03/23 04/01/24 Melatonin 5 mg PO HS PRN 05/03/23 04/01/24 Acetaminophen [Tylenol Arthritis] 650 mg PO Q4HR PRN 10/24/23 04/01/24 amLODIPine [Norvasc] 5 mg PO DAILY 12/12/23 04/01/24 clonazePAM [KlonoPIN ODT] 0.25 mg PO HS 12/12/23 04/01/24 OLANZapine [ZyPREXA] 15 mg PO HS 01/22/24 04/01/24 Folic Acid 1 mg PO DAILY@1700 03/18/24 04/01/24 Venlafaxine HCl ER [Effexor XR] 150 mg PO DAILY 03/18/24 04/01/24 hydrOXYzine HCL [Atarax] 25 mg PO BID 03/18/24 04/01/24 lamoTRIgine [LaMICtal] 150 mg PO BID 03/18/24 04/01/24 Gabapentin 300 mg PO TID 04/09/24 04/09/24 Previous Rx's Medication Instructions Recorded Albuterol Inhaler [Ventolin Hfa 2 puff INHALATION RT-QID PRN #1 11/17/22 Inhaler] each Albuterol Nebulized [Ventolin 5 mg INHALATION RT-QID PRN #60 each 01/24/24 Nebulized] HYDROcodone/APAP 5-325MG [[place] 1 tab PO Q6HR PRN 3 Days #12 tab 03/15/24 5-325] Divalproex ER [Depakote ER] 500 mg PO HS #60 tab 03/28/24 Pyridoxine [Vitamin B-6] 50 mg PO DAILY #30 tab 03/28/24 Ceftolozane/Tazobactam [Zerbaxa 3 gm IV Q8HR 7 Days #21 each 04/13/24 1.5 Gram Vial] Collagenase [Santyl Ointment] 1 applic TOPICAL DAILY each 04/13/24 Nicotine 14Mg/24Hr Patch [Habitrol] 1 patch TRANSDERM DAILY patch 04/13/24 QUEtiapine [SEROquel] 25 mg PO BID 30 Days #60 tab 04/13/24 Sennosides [Senokot] 8.6 mg PO BID PRN tab 04/13/24 metroNIDAZOLE [Flagyl] 500 mg PO TID 7 Days #21 tab 04/13/24 Allergies Allergy/AdvReac Type Severity Reaction Status Date / Time codeine Allergy Unknown Verified 04/15/24 14:30 Childhood Penicillins Allergy Rash/Hives Verified 04/15/24 14:30 Sulfa (Sulfonamide Allergy Rash/Hives Verified 04/15/24 14:30 Antibiotics) Review of Systems ROS Statement: Those systems with pertinent positive or pertinent negative responses have been documented in the HPI. ROS Other: All systems not noted in ROS Statement are negative. 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 History of Any Multi-Drug Resistant Organisms: None Reported Date of last positivie culture/infection: 04/05/24 MDRO Source:: rt knee Past Surgical History: Bariatric Surgery, Section, Cholecystectomy, Hysterectomy, Tonsillectomy Additional Past Surgical History / Comment(s): EGD, colonoscopies, gastric bypass, surgery for deviated septum, left cataract removal (having laser procedure on that eye 11/24/23) Past Anesthesia/Blood Transfusion Reactions: Previous Problems w/ Anesthesia Additional Past Anesthesia/Blood Transfusion Reaction / Comment(s): itching after hysterectomy, some kind of breathing problem after gastric bypass-not sure what happened Past Psychological History: Anxiety, Bipolar, Depression, Panic Disorder Smoking Status: Current every day smoker Past Alcohol Use History: None Reported Past Drug Use History: Marijuana - Past Family History Mother Family Medical History: Congestive Heart Failure (CHF), Hypertension Father History Unknown: Yes Additional Family Medical History / Comment(s): Father at the age of 45 yrs d/t having had rheumatic fever as a child and heart valve disease. General Exam Limitations: no limitations General appearance: alert, in no apparent distress Head exam: Present: atraumatic, normocephalic, normal inspection Respiratory exam: Present: normal lung sounds bilaterally. Absent: respiratory distress, wheezes, rales, rhonchi, stridor Cardiovascular Exam: Present: regular rate, normal rhythm, normal heart sounds. Absent: systolic murmur, diastolic murmur, rubs, gallop, clicks Neurological exam: Present: alert, oriented X3, CN II-XII intact Psychiatric exam: Present: normal affect, normal mood Skin exam: Present: warm, dry, intact, normal color. Absent: rash Course Vital Signs 04/15/24 04/15/24 04/15/24 14:24 15:11 16:00 Temperature 97.9 F Pulse Rate 78 70 68 Respiratory 16 16 20 Rate Blood Pressure 130/65 125/63 130/60 O2 Sat by Pulse 83 L 94 L 98 Oximetry 04/15/24 04/15/24 17:00 17:28 Temperature Pulse Rate 68 68 Respiratory 20 24 Rate Blood Pressure 125/68 130/60 O2 Sat by Pulse 96 95 Oximetry Medical Decision Making - Medical Decision Making This is a 68-year-old female presents emergency department for problems with her midline. Was pt. sent in by a medical professional or institution? @ -No Did you speak to anyone other than the patient for history? @ -No Did you review nursing and triage notes? @ -Yes, and I agree, it is accurate with regards to the patient's symptoms. Were old charts reviewed? @ -No Differential Diagnosis? @ -Clog, malposition, device failure, user error, this is not meant to be an all-inclusive list. EKG interpreted by me (3pts min.)? @ -Not obtained X-rays interpreted by me (1pt min.)? @ -Not obtained CT interpreted by me (1pt min.)? @ -Not obtained U/S interpreted by me (1pt. min.)? @ -Not obtained What testing was considered but not performed? (CT, X-rays, U/S, labs)? Why? @ -None What meds were considered but not given? Why? @ -None Did you discuss the management of the patient with other professionals? @ -No Did you reconcile home meds? @ -No Was smoking cessation discussed for >3mins.? @ -No Was critical care preformed (if so, how long)? @ -No Were there social determinants of health that impacted care today? How? (Homelessness, low income, unemployed, alcoholism, drug addiction, transportation, low edu. Level, literacy, decrease access to med. care, halfway, rehab)? @ -No Was there de-escalation of care discussed even if they declined? (Discuss DNR or withdrawal of care, Hospice)? @ -No What co-morbidities impacted this encounter? (DM, HTN, Smoking, COPD, CAD, Cancer, CVA, Hep., AIDS, mental health diagnosis, sleep apnea, morbid obesity)? @ -None Was patient admitted / discharged? @ -Discharged. Nursing staff was initially able to get the midline working, however it seemed to become kinked again shortly afterwards. They subsequently inserted an IV and gave the patient her dose of antibiotics through this. There was no one available in the hospital while she was here to replace the midline. Advised that she needs to contact the appropriate provider in the morning to see if she can have this replaced. Patient discharged home in stable condition. Case discussed with ED attending Dr. Ramírez. Return precautions reviewed in depth, the patient is instructed to return to the emergency department with any new, worsening, or concerning symptoms. Patient verbalized understanding. Undiagnosed new problem with uncertain prognosis? @ -None Drug Therapy requiring intensive monitoring for toxicity (Heparin, Nitro, Insulin, Cardizem)? @ -None Were any procedures done? @ -None Diagnosis/symptom? @ -Complication of infusion catheter Acute, or Chronic, or Acute on Chronic? @ -Acute Uncomplicated (without systemic symptoms) or Complicated (systemic symptoms)? @ -Uncomplicated Side effects of treatment? @ -None Exacerbation, Progression, or Severe Exacerbation] @ -Not applicable Poses a threat to life or bodily function? @ -No Disposition Clinical Impression: Other mechanical complication of infusion catheter, initial encounter Disposition: HOME SELF-CARE Instructions (If sedation given, give patient instructions): Midline Catheter (DC), How to Flush Your Midline Catheter (ED) Additional Instructions: Return to the emergency department with any new, worsening, or concerning symptoms. Follow up with your primary care provider in 1-2 days. Is patient prescribed a controlled substance at d/c from ED?: No Referrals: Andrzej Wheeler MD [Primary Care Provider] - 1-2 days Time of Disposition: 17:01
[2024-04-15 17:12] VITALS: PULSE 68
[2024-04-15 17:30] VITALS: BP 130/60; RESP 24
== END 2024-04-15 17:30 | disposition home or self-care (01) ==
LOC: EC 14:22
CPT/HCPCS: 99283

== ENCOUNTER 2024-04-20 10:44 | Emergency (ER) | payer MEDICARE ==
--- NOTE | 2024-04-20 11:57 | ED ---
General Adult HPI - General Chief complaint: Recheck/Abnormal Lab/Rx Stated complaint: Recheck-Infusion issue Time Seen by Provider: 04/20/24 10:59 Source: patient, RN notes reviewed Mode of arrival: ambulatory Limitations: no limitations - History of Present Illness Initial comments: 68-year-old female presents emergency department chief complaint of needing IV for IV antibiotic infusion. Patient states she has no other complaints she is at her baseline. She had an IV placed 2 days ago but it failed and came out today. She states she has a day and a half antibiotic use left. She had a midline prior to this. She states she does not want a midline she denies any chest pain no increasing shortness of breath no other complaints. - Related Data Home Medications Medication Instructions Recorded Confirmed Montelukast [Singulair] 10 mg PO HS 12/17/13 04/21/24 Levothyroxine Sodium [Synthroid] 150 mcg PO DAILY 03/29/20 04/21/24 Budesonide/Formoterol Fumarate 2 puff INHALATION RT-BID 06/12/21 04/21/24 [Symbicort 160-4.5 Mcg Inhaler] Famotidine [Pepcid] 20 mg PO BID 09/03/21 04/21/24 Tamsulosin [Flomax] 0.4 mg PO DAILY@1200 10/26/21 04/21/24 Ferrous Sulfate [Iron (65 MG 325 mg PO DAILY 11/13/22 04/21/24 Elemental)] Ipratropium-Albuterol Nebulize 3 ml INHALATION RT-QID PRN 11/13/22 04/21/24 [Duoneb 0.5 mg-3 mg/3 ml Soln] Thiamine [Vitamin B-1] 100 mg PO DAILY@1700 11/13/22 04/21/24 Ibandronate Sodium [Boniva] 150 mg PO Q30D 05/03/23 04/21/24 Melatonin 5 mg PO HS PRN 05/03/23 04/21/24 Acetaminophen [Tylenol Arthritis] 650 mg PO Q4HR PRN 10/24/23 04/21/24 amLODIPine [Norvasc] 5 mg PO DAILY 12/12/23 04/21/24 clonazePAM [KlonoPIN ODT] 0.25 mg PO HS 12/12/23 04/21/24 OLANZapine [ZyPREXA] 15 mg PO HS 01/22/24 04/21/24 Folic Acid 1 mg PO DAILY@1700 03/18/24 04/21/24 Venlafaxine HCl ER [Effexor XR] 150 mg PO DAILY 03/18/24 04/21/24 hydrOXYzine HCL [Atarax] 25 mg PO BID 03/18/24 04/21/24 lamoTRIgine [LaMICtal] 150 mg PO BID 03/18/24 04/21/24 Gabapentin 300 mg PO TID 04/09/24 04/21/24 lisinopriL [Prinivil] 20 mg PO DAILY 04/21/24 04/21/24 Previous Rx's Medication Instructions Recorded Albuterol Inhaler [Ventolin Hfa 2 puff INHALATION RT-QID PRN #1 11/17/22 Inhaler] each Albuterol Nebulized [Ventolin 5 mg INHALATION RT-QID PRN #60 each 01/24/24 Nebulized] HYDROcodone/APAP 5-325MG [[place] 1 tab PO Q6HR PRN 3 Days #12 tab 03/15/24 5-325] Divalproex ER [Depakote ER] 500 mg PO HS #60 tab 03/28/24 Pyridoxine [Vitamin B-6] 50 mg PO DAILY #30 tab 03/28/24 Collagenase [Santyl Ointment] 1 applic TOPICAL DAILY each 04/13/24 Nicotine 14Mg/24Hr Patch [Habitrol] 1 patch TRANSDERM DAILY patch 04/13/24 QUEtiapine [SEROquel] 25 mg PO BID 30 Days #60 tab 04/13/24 Sennosides [Senokot] 8.6 mg PO BID PRN tab 04/13/24 Allergies Allergy/AdvReac Type Severity Reaction Status Date / Time codeine Allergy Unknown Verified 04/21/24 20:15 Childhood Penicillins Allergy Rash/Hives Verified 04/21/24 20:15 Sulfa (Sulfonamide Allergy Rash/Hives Verified 04/21/24 20:15 Antibiotics) Review of Systems ROS Statement: Those systems with pertinent positive or pertinent negative responses have been documented in the HPI. ROS Other: All systems not noted in ROS Statement are negative. Past Medical History Past Medical History: Asthma, Heart Failure, COPD, Fibromyalgia, GERD/Reflux, Hypertension, Osteoarthritis (OA), Pneumonia, Pulmonary Embolus (PE), Skin Disorder, Thyroid Disorder Additional Past Medical History / Comment(s): Spinal Stenosis, Cervical disc disease/stenosis, scoliosis, recently having numbness/tingling L side of face/neck, recently saw cob sawyer for L hemidiaphragmatic elevation-pt states she was told this was probably genetic, recently bronchitis and past bronchitis, pt states recent med change (water pill) d/t electrolyte problem/kidney function being affected, pt states she has had pulmonary emboli, past bilateral lower extremity cellulitis, edema lower extremities, IBS, hemorrhoids, benign colon polyps, sinus problems, UTIs, bacteremia/sepsis, cardiac murmur, past L ankle and L wrist fractures. History of Any Multi-Drug Resistant Organisms: None Reported Date of last positivie culture/infection: 04/05/24 MDRO Source:: rt knee Past Surgical History: Bariatric Surgery, Section, Cholecystectomy, Hysterectomy, Tonsillectomy Additional Past Surgical History / Comment(s): EGD, colonoscopies, gastric bypass, surgery for deviated septum, left cataract removal (having laser procedure on that eye 11/24/23) Past Anesthesia/Blood Transfusion Reactions: Previous Problems w/ Anesthesia Additional Past Anesthesia/Blood Transfusion Reaction / Comment(s): itching after hysterectomy, some kind of breathing problem after gastric bypass-not sure what happened Past Psychological History: Anxiety, Bipolar, Depression, Panic Disorder Smoking Status: Current every day smoker Past Alcohol Use History: None Reported Past Drug Use History: Marijuana - Past Family History Mother Family Medical History: Congestive Heart Failure (CHF), Hypertension Father History Unknown: Yes Additional Family Medical History / Comment(s): Father at the age of 45 yrs d/t having had rheumatic fever as a child and heart valve disease. General Exam Limitations: no limitations General appearance: alert, in no apparent distress Head exam: Present: atraumatic, normocephalic, normal inspection Eye exam: Present: normal appearance, PERRL, EOMI. Absent: scleral icterus, conjunctival injection, periorbital swelling ENT exam: Present: normal exam, mucous membranes moist Neck exam: Present: normal inspection. Absent: tenderness, meningismus, lymphadenopathy Respiratory exam: Present: normal lung sounds bilaterally. Absent: respiratory distress, wheezes, rales, rhonchi, stridor Cardiovascular Exam: Present: regular rate, normal rhythm, normal heart sounds. Absent: systolic murmur, diastolic murmur, rubs, gallop, clicks Course Vital Signs 04/20/24 04/20/24 10:50 15:13 Temperature 98 F 98.0 F Pulse Rate 75 78 Respiratory 18 20 Rate Blood Pressure 114/60 120/68 O2 Sat by Pulse 85 L 98 Oximetry Medical Decision Making - Medical Decision Making Was pt. sent in by a medical professional or institution (, [facility], FURNITURE SANDER, urgent care, hospital, or [facility]...) When possible be specific @ -No Did you speak to anyone other than the patient for history (EMS, parent, family, police, friend...)? What history was obtained from this source @ -No Did you review nursing and triage notes (agree or disagree)? Why? @ -I reviewed and agree with nursing and triage notes Were old charts reviewed (outside hosp., previous admission, EMS record, old EKG, old radiological studies, urgent care reports/EKG's, [facility] records)? Report findings @ -No old charts were reviewed Differential Diagnosis (chest pain, altered mental status, abdominal pain women, abdominal pain men, vaginal bleeding, weakness, fever, dyspnea, syncope, headache, dizziness, GI bleed, back pain, seizure, CVA, palpatations, mental health, musculoskeletal)? @ -Peripheral line failure, pneumonia EKG interpreted by me (3pts min.). @ -None X-rays interpreted by me (1pt min.). @ -None done CT interpreted by me (1pt min.). @ -None done U/S interpreted by me (1pt. min.). @ -None done What testing was considered but not performed or refused? (CT, X-rays, U/S, labs)? Why? @ -None What meds were considered but not given or refused? Why? @ -None Did you discuss the management of the patient with other professionals (professionals i.e. HERMINIA Shepard, FURNITURE SANDER, lab, RT, psych nurse, high school social studies teacher, latent print examiner, teacher, alumni relations officer, adult protective caseworker)? Give summary @ -No Was smoking cessation discussed for >3mins.? @ -No Was critical care preformed (if so, how long)? @ -No Were there social determinants of health that impacted care today? How? (Homelessness, low income, unemployed, alcoholism, drug addiction, transportation, low edu. Level, literacy, decrease access to med. care, half-way, rehab)? @ -No Was there de-escalation of care discussed even if they declined (Discuss DNR or withdrawal of care, Hospice)? DNR status @ -No What co-morbidities impacted this encounter? (DM, HTN, Smoking, COPD, CAD, Canc er, CVA, ARF, Chemo, Hep., AIDS, mental health diagnosis, sleep apnea, morbid obesity)? @ -None Was patient admitted / discharged? Hospital course, mention meds given and route, prescriptions, significant lab abnormalities, going to OR and other pertinent info. @ -[Discharge patient had IV placed for antibiotics today and tomorrow will be removed after last infusion tomorrow. She refuses midline. Patient will be discharged in stable condition. Undiagnosed new problem with uncertain prognosis? @ -No Drug Therapy requiring intensive monitoring for toxicity (Heparin, Nitro, Insulin, Cardizem)? @ -No Were any procedures done? @ -No Diagnosis/symptom? @ -Peripheral vascular access Acute, or Chronic, or Acute on Chronic? @ -Acute Uncomplicated (without systemic symptoms) or Complicated (systemic symptoms)? @ -Uncomplicated Side effects of treatment? @ -No Exacerbation, Progression, or Severe Exacerbation? @ -No Poses a threat to life or bodily function? How? (Chest pain, [place], [place], pneumonia, PE, COPD, DKA, ARF, appy, cholecystitis, CVA, Diverticulitis, Homicidal, Suicidal, threat to staff... and all critical care pts) @ -No Disposition Clinical Impression: Encounter for peripheral line placement Disposition: HOME SELF-CARE Condition: Stable Additional Instructions: Have IV removed by medical staff after finishing of antibiotics tomorrow. Please return to the Emergency Department if symptoms worsen or any other concerns. Is patient prescribed a controlled substance at d/c from ED?: No Referrals: Andrzej Wheeler MD [Primary Care Provider] - 1-2 days Time of Disposition: 11:57
[2024-04-20 15:15] VITALS: BP 120/68; PULSE 78; RESP 20; TEMP 98
== END 2024-04-20 13:53 | disposition home or self-care (01) ==
LOC: EC 10:44
CPT/HCPCS: 99282

== ENCOUNTER 2024-04-21 17:58 | Inpatient (IN) | payer MEDICARE ==
[2024-04-21 19:03] LABS: Basophils # (A) 0.1 k/uL (0-0.2); Basophils % (A) 1 %; Eosinophils # (A) 0.3 k/uL (0-0.7); Eosinophils % (A) 4 %; HCT 31.5 % (34.0-46.0); Hypochromasia Moderate; Lymphocytes # (A) 2.3 k/uL (1.0-4.8); Lymphocytes % (A) 26 %; MCH 31.9 pg (25.0-35.0); MCHC 31.6 g/dL (31.0-37.0); MCV 100.8 fL (80.0-100.0); Macrocytosis Slight; Mean Platelet Volume 7.4; Monocytes % (A) 11 %; Neutrophils # (A) 4.9 k/uL (1.3-7.7); Neutrophils % (A) 54 %; Platelet Count 503 k/uL (150-450); Poikilocytosis Slight; RBC 3.12 m/uL (3.80-5.40); RDW 15.9 % (11.5-15.5)
[2024-04-21 19:16] LABS: ALT 16 U/L (4-34); AST 31 U/L (14-36); African American GFR (CKD) >90 (>60 ml/min/1.73 sqM); Albumin 2.8 g/dL (3.5-5.0); Alkaline Phosphatase 66 U/L (38-126); Anion Gap 3 mmol/L; Blood Urea Nitrogen 15 mg/dL (7-17); Calcium 9.2 mg/dL (8.4-10.2); Carbon Dioxide 28 mmol/L (22-30); Chloride 107 mmol/L (98-107); Glucose 92 mg/dL (74-99); Magnesium 2.2 mg/dL (1.6-2.3); Non-African American GFR(CKD) >90 (>60 ml/min/1.73 sqM); Potassium 4.7 mmol/L (3.5-5.1); Sodium 138 mmol/L (137-145); Total Bilirubin 0.3 mg/dL (0.2-1.3); Total Protein 5.1 g/dL (6.3-8.2)
[2024-04-21] MEDS: SODIUM CHLORIDE 0.9% 500 ML 500 ML IV STA (19:34)
[2024-04-21] MEDS: methylPREDNISolone SOD SUCCI 125 MG/2 ML VIAL IV STA (19:38)
--- NOTE | 2024-04-21 19:41 | XR ---
EXAMINATION TYPE: XR chest 2V DATE OF EXAM: 04/21/2024 COMPARISON: 04/02/2024 INDICATION: Covid positive TECHNIQUE: Frontal and lateral views of the chest are obtained. FINDINGS: The heart size is mildly prominent. The pulmonary vasculature is prominent. There are scattered nonspecific increased lung infiltrates. Small right pleural effusion is present. Atypical pneumonia could be considered. Also consider developing congestive heart failure.. IMPRESSION: 1. Diffuse nonspecific increased lung markings. Atypical pneumonia such as COVID and pulmonary edema should be considered. Correlate for congestive heart failure. [facility], Workstation: [facility], 04/21/2024 7:39 PM
[2024-04-21] MEDS: ALBUTEROL HFA INHALER INHALATION STA (20:06)
--- NOTE | 2024-04-21 20:13 | ED ---
General Adult HPI - General Chief complaint: Shortness of Breath Stated complaint: ИВАН Time Seen by Provider: 04/21/24 18:22 Source: patient, RN notes reviewed, old records reviewed Mode of arrival: wheelchair Limitations: no limitations - History of Present Illness Initial comments: Patient is a 68-year-old female who presents emergency department complaining of weakness, in the setting of COVID-19 infection. Tested positive on Wednesday.. Patient has a history of heart failure, asthma, COPD, fibromyalgia, hypertension. Is currently on IV antibiotics for MRSA and has her last dose tonight. Endorses cough, congestion. Denies nausea or vomiting but does endorse generalized weakness, lack of appetite. No obvious fevers. No known s ick contacts. Presents for further evaluation at this time. Patient is on oxygen as needed at home but has been requiring it more frequently. - Related Data Home Medications Medication Instructions Recorded Confirmed Montelukast [Singulair] 10 mg PO HS 12/17/13 04/01/24 Levothyroxine Sodium [Synthroid] 150 mcg PO DAILY 03/29/20 04/01/24 Budesonide/Formoterol Fumarate 2 puff INHALATION RT-BID 06/12/21 04/01/24 [Symbicort 160-4.5 Mcg Inhaler] Famotidine [Pepcid] 20 mg PO BID 09/03/21 04/01/24 Tamsulosin [Flomax] 0.4 mg PO DAILY@1200 10/26/21 04/01/24 Ferrous Sulfate [Iron (65 MG 325 mg PO DAILY 11/13/22 04/01/24 Elemental)] Ipratropium-Albuterol Nebulize 3 ml INHALATION RT-QID PRN 11/13/22 04/01/24 [Duoneb 0.5 mg-3 mg/3 ml Soln] Thiamine [Vitamin B-1] 100 mg PO DAILY@1700 11/13/22 04/01/24 Ibandronate Sodium [Boniva] 150 mg PO Q30D 05/03/23 04/01/24 Melatonin 5 mg PO HS PRN 05/03/23 04/01/24 Acetaminophen [Tylenol Arthritis] 650 mg PO Q4HR PRN 10/24/23 04/01/24 amLODIPine [Norvasc] 5 mg PO DAILY 12/12/23 04/01/24 clonazePAM [KlonoPIN ODT] 0.25 mg PO HS 12/12/23 04/01/24 OLANZapine [ZyPREXA] 15 mg PO HS 01/22/24 04/01/24 Folic Acid 1 mg PO DAILY@1700 03/18/24 04/01/24 Venlafaxine HCl ER [Effexor XR] 150 mg PO DAILY 03/18/24 04/01/24 hydrOXYzine HCL [Atarax] 25 mg PO BID 03/18/24 04/01/24 lamoTRIgine [LaMICtal] 150 mg PO BID 03/18/24 04/01/24 Gabapentin 300 mg PO TID 04/09/24 04/09/24 Previous Rx's Medication Instructions Recorded Albuterol Inhaler [Ventolin Hfa 2 puff INHALATION RT-QID PRN #1 11/17/22 Inhaler] each Albuterol Nebulized [Ventolin 5 mg INHALATION RT-QID PRN #60 each 01/24/24 Nebulized] HYDROcodone/APAP 5-325MG [[place] 1 tab PO Q6HR PRN 3 Days #12 tab 03/15/24 5-325] Divalproex ER [Depakote ER] 500 mg PO HS #60 tab 03/28/24 Pyridoxine [Vitamin B-6] 50 mg PO DAILY #30 tab 03/28/24 Ceftolozane/Tazobactam [Zerbaxa 3 gm IV Q8HR 7 Days #21 each 04/13/24 1.5 Gram Vial] Collagenase [Santyl Ointment] 1 applic TOPICAL DAILY each 04/13/24 Nicotine 14Mg/24Hr Patch [Habitrol] 1 patch TRANSDERM DAILY patch 04/13/24 QUEtiapine [SEROquel] 25 mg PO BID 30 Days #60 tab 04/13/24 Sennosides [Senokot] 8.6 mg PO BID PRN tab 04/13/24 metroNIDAZOLE [Flagyl] 500 mg PO TID 7 Days #21 tab 04/13/24 Allergies Allergy/AdvReac Type Severity Reaction Status Date / Time codeine Allergy Unknown Verified 04/21/24 18:07 Childhood Penicillins Allergy Rash/Hives Verified 04/21/24 18:07 Sulfa (Sulfonamide Allergy Rash/Hives Verified 04/21/24 18:07 Antibiotics) Review of Systems ROS Statement: Those systems with pertinent positive or pertinent negative responses have been documented in the HPI. Review of Systems: CONST: Denies fever EYES: Denies blurry vision ENT: Denies nasal congestion C/V: Denies Chest pain RESP: Denies shortness of breath GI: Denies abdominal pain : Denies dysuria SKIN: Denies rash. MSK: Denies joint pain. NEURO: Endorses generalized weakness ROS Other: All systems not noted in ROS Statement are negative. Past Medical History Past Medical History: Asthma, Heart Failure, COPD, Fibromyalgia, GERD/Reflux, Hypertension, Osteoarthritis (OA), Pneumonia, Pulmonary Embolus (PE), Skin Disorder, Thyroid Disorder Additional Past Medical History / Comment(s): Spinal Stenosis, Cervical disc disease/stenosis, scoliosis, recently having numbness/tingling L side of face/neck, recently saw buggy runner for L hemidiaphragmatic elevation-pt states she was told this was probably genetic, recently bronchitis and past bronchitis, pt states recent med change (water pill) d/t electrolyte problem/kidney function being affected, pt states she has had pulmonary emboli, past bilateral lower extremity cellulitis, edema lower extremities, IBS, hemorrhoids, benign colon polyps, sinus problems, UTIs, bacteremia/sepsis, cardiac murmur, past L ankle and L wrist fractures. History of Any Multi-Drug Resistant Organisms: None Reported Date of last positivie culture/infection: 04/05/24 MDRO Source:: rt knee Past Surgical History: Bariatric Surgery, Section, Cholecystectomy, Hysterectomy, Tonsillectomy Additional Past Surgical History / Comment(s): EGD, colonoscopies, gastric bypass, surgery for deviated septum, left cataract removal (having laser procedu re on that eye 11/24/23) Past Anesthesia/Blood Transfusion Reactions: Previous Problems w/ Anesthesia Additional Past Anesthesia/Blood Transfusion Reaction / Comment(s): itching after hysterectomy, some kind of breathing problem after gastric bypass-not sure what happened Past Psychological History: Anxiety, Bipolar, Depression, Panic Disorder Smoking Status: Current every day smoker Past Alcohol Use History: None Reported Past Drug Use History: Marijuana - Past Family History Mother Family Medical History: Congestive Heart Failure (CHF), Hypertension Father History Unknown: Yes Additional Family Medical History / Comment(s): Father at the age of 45 yrs d/t having had rheumatic fever as a child and heart valve disease. General Exam - General Exam Comments Initial Comments: General: Appears in no acute distress. HEAD: Normal with no signs of head trauma. EYES: PERRLA, EOMI, conjunctiva normal, no discharge. ENT: Hearing grossly intact, normal oropharynx. RESPIRATORY: Normoxic on baseline 2 L nasal cannula. Rhonchi bilaterally. C/V: Regular rate and rhythm. S1 and S2 auscultated, no edema, peripheral pulses 2+ and intact throughout ABD: Abd is soft, nontender, nondistended EXT: Normal range of motion, no obvious deformity SKIN: No rashes or lesions observed on exposed skin. NEURO: Alert and oriented x 4. Limitations: no limitations Course Vital Signs 04/21/24 04/21/24 17:59 19:00 Temperature 97.9 F 98.7 F Pulse Rate 69 69 Respiratory 20 17 Rate Blood Pressure 141/61 132/57 O2 Sat by Pulse 93 L 92 L Oximetry Medical Decision Making - Medical Decision Making Was pt. sent in by a medical professional or institution (HERMINIA Shepard, CYCLE TOURING GUIDE, urgent care, hospital, or group home...) When possible be specific @ -No Did you speak to anyone other than the patient for history (EMS, parent, family, police, friend...)? What history was obtained from this source @ -Patient's helps with the patient's past medical history and believes patient should be admitted due to her worsening weakness as well as worsening symptoms. Did you review nursing and triage notes (agree or disagree)? Why? @ -I reviewed and agree with nursing and triage notes Were old charts reviewed (outside hosp., previous admission, EMS record, old EKG, old radiological studies, urgent care reports/EKG's, group home records)? Report findings @ -Old charts reviewed including confirming patient is on IV antibiotic Zerbaxa 3 g 3 times daily and is having last dose today. Differential Diagnosis (chest pain, altered mental status, abdominal pain women, abdominal pain men, vaginal bleeding, weakness, fever, dyspnea, syncope, headache, dizziness, GI bleed, back pain, seizure, CVA, palpatations, mental health, musculoskeletal)? @ -Differential Weakness: Hypoglycemia, shock, sepsis, hyponatremia, anemia, infection, [place], ETOH, adverse medicine reaction, overdose, stroke, this is not meant to be an all-inclusive list. EKG interpreted by me (3pts min.). @ -As above X-rays interpreted by me (1pt min.). @ -Chest x-ray shows findings consistent with atypical pneumonia, likely due to COVID-pneumonia CT interpreted by me (1pt min.). @ -None done U/S interpreted by me (1pt. min.). @ -None done What testing was considered but not performed or refused? (CT, X-rays, U/S, labs)? Why? @ -None What meds were considered but not given or refused? Why? @ -None Did you discuss the management of the patient with other professionals (professionals i.e. , PA, CYCLE TOURING GUIDE, lab, RT, psych nurse, social worker assistant, turnaround engineer, teacher, administrative officer, bilingual patient support caseworker)? Give summary @ -Spoke with EDENILSON Ventura who accepted the admission under [facility] Was smoking cessation discussed for >3mins.? @ -No Was critical care preformed (if so, how long)? @ -No Were there social determinants of health that impacted care today? How? (Homelessness, low income, unemployed, alcoholism, drug addiction, t ransportation, low edu. Level, literacy, decrease access to med. care, intermediate, rehab)? @ -No Was there de-escalation of care discussed even if they declined (Discuss DNR or withdrawal of care, Hospice)? DNR status @ -No What co-morbidities impacted this encounter? (DM, HTN, Smoking, COPD, CAD, Cance r, CVA, ARF, Chemo, Hep., AIDS, mental health diagnosis, sleep apnea, morbid obesity)? @ -COPD, chronic hypoxic respiratory failure Was patient admitted / discharged? Hospital course, mention meds given and route, prescriptions, significant lab abnormalities, going to OR and other pertinent info. @ -Based on patient's presentation and physical exam, I do suspect COVID-19 pneumonia and weakness. Patient will be treated for COPD with IV steroids, small bolus of IV fluids, as well as albuterol inhaler. Vitals are currently within acceptable limits at this time. Patient was in agreement this plan. Chest x-ray showed COVID-pneumonia. Labs are relatively unremarkable. Chronic stable anemia. Did not repeat COVID test as she was positive on Wednesday. On reevaluation, I updated the patient. I do believe it is safest to admit her to the hospital due to her worsening weakness as well as the COVID-19 pneumonia seen on chest x-ray. She was in agreement this plan. Pulmonology will be c onsulted. Will continue with IV steroid therapy. Patient was in agreement this plan. I spoke with [facility] EDENILSON Ventura who accepted the admission. Undiagnosed new problem with uncertain prognosis? @ -No Drug Therapy requiring intensive monitoring for toxicity (Heparin, Nitro, Insulin, Cardizem)? @ -No Were any procedures done? @ -No Diagnosis/symptom? @ -COVID-19 pneumonia, weakness Acute, or Chronic, or Acute on Chronic? @ -Acute Uncomplicated (without systemic symptoms) or Complicated (systemic symptoms)? @ -Complicated Side effects of treatment? @ -No Exacerbation, Progression, or Severe Exacerbation? @ -No Poses a threat to life or bodily function? How? (Chest pain, [place], [place], pneumonia, PE, COPD, DKA, ARF, appy, cholecystitis, CVA, Diverticulitis, Homicidal, Suicidal, threat to staff... and all critical care pts) @ -Yes - Lab Data Result diagrams: 04/21/24 18:57 04/21/24 18:57 Lab Results 04/21/24 04/21/24 04/21/24 Range/Units 18:57 18:57 18:57 WBC 9.0 (3.8-10.6) k/uL RBC 3.12 L (3.80-5.40) m/uL Hgb 10.0 L (11.4-16.0) gm/dL Hct 31.5 L (34.0-46.0) % MCV 100.8 H (80.0-100.0) fL MCH 31.9 (25.0-35.0) pg MCHC 31.6 (31.0-37.0) g/dL RDW 15.9 H (11.5-15.5) % Plt Count 503 H (150-450) k/uL MPV 7.4 Neutrophils % 54 % Lymphocytes % 26 % Monocytes % 11 % Eosinophils % 4 % Basophils % 1 % Neutrophils # 4.9 (1.3-7.7) k/uL Lymphocytes # 2.3 (1.0-4.8) k/uL Monocytes # 1.0 (0-1.0) k/uL Eosinophils # 0.3 (0-0.7) k/uL Basophils # 0.1 (0-0.2) k/uL Manual Slide Review Performed Hypochromasia Moderate Poikilocytosis Slight Macrocytosis Slight Sodium 138 (137-145) mmol/L Potassium 4.7 (3.5-5.1) mmol/L Chloride 107 (98-107) mmol/L Carbon Dioxide 28 (22-30) mmol/L Anion Gap 3 mmol/L BUN 15 (7-17) mg/dL Creatinine 0.58 (0.52-1.04) mg/dL Est GFR (CKD-EPI)AfAm >90 (>60 ml/min/1.73 sqM) Est GFR (CKD-EPI)NonAf >90 (>60 ml/min/1.73 sqM) Glucose 92 (74-99) mg/dL Plasma Lactic Acid Joel <0.5 L (0.7-2.0) mmol/L Calcium 9.2 (8.4-10.2) mg/dL Magnesium 2.2 (1.6-2.3) mg/dL Total Bilirubin 0.3 (0.2-1.3) mg/dL AST 31 (14-36) U/L ALT 16 (4-34) U/L Alkaline Phosphatase 66 (38-126) U/L Total Protein 5.1 L (6.3-8.2) g/dL Albumin 2.8 L (3.5-5.0) g/dL - EKG Data -: EKG Interpreted by Me EKG Comments: 12-lead Electrocardiogram Interpretation Note EKG was reviewed and interpreted by myself. 12-lead ECG performed at 1840 is interpreted by me as revealing normal sinus rhythm at a rate of 68 beats per minute. [employer] is normal. MI interval is 203 ms, QRS duration is 126 ms, QTc is 397 ms.. There were no ST or T wave abnormalities to suggest myocardial ischemia or injury. R wave progression across the precordium was satisfactory. By my interpretation this EKG is non-diagnostic for acute ischemia. Disposition Clinical Impression: Weakness, Pneumonia due to COVID-19 virus Disposition: ADMITTED IP TO THIS HOSP Condition: Stable Referrals: Andrzej Wheeler MD [Primary Care Provider] - 1-2 days Time of Disposition: 20:13
[2024-04-21] MEDS ORDERED: NALOXONE 0.4 MG/ML 1 ML VIAL IV PRN (20:16)
[2024-04-21] MEDS ORDERED: ACETAMINOPHEN TAB 325 MG TAB PO PRN ×2 (20:16→20:53)
[2024-04-21] MEDS ORDERED: IBUPROFEN 400 MG TAB PO PRN (20:16)
[2024-04-21] MEDS ORDERED: ONDANSETRON 4 MG/2 ML VIAL IVP PRN (20:16)
[2024-04-21] MEDS ORDERED: IPRATROPIUM-ALBUTEROL 3 ML NEB INHALATION PRN (20:53)
[2024-04-21] MEDS ORDERED: ALBUTEROL HFA INHALER INHALATION PRN (20:53)
[2024-04-21] MEDS ORDERED: ALBUTEROL NEBULIZED 2.5 MG/3 ML INHALATION PRN (20:53)
[2024-04-21] MEDS ORDERED: HYDROcodone/APAP 5-325MG 1 EACH TAB PO PRN (20:53)
[2024-04-21] MEDS: CEFTOLOZANE/TAZOBACTAM 3 GM in SODIUM CHLORIDE 0.9% 100 ML IV ONE (20:57)
[2024-04-21] MEDS: clonazePAM 0.5 MG TAB PO SCH (22:09)
[2024-04-21] MEDS: DIVALPROEX ER 500 MG TAB.ER.24H PO SCH (22:10)
[2024-04-21] MEDS: lamoTRIgine 100 MG TAB PO SCH (22:10)
[2024-04-21] MEDS: OLANZapine 7.5 MG TAB PO SCH (22:10)
[2024-04-21] MEDS: FAMOTIDINE 20 MG TAB PO SCH (22:10)
[2024-04-21] MEDS: HEPARIN SODIUM,PORCINE 5,000 UNIT/ML 1 ML VIAL SQ SCH (23:13)
[2024-04-21] MEDS: GABAPENTIN 300 MG CAP PO SCH (23:13)
[2024-04-21] MEDS: hydrOXYzine HCL 25 MG TAB PO SCH (23:13)
[2024-04-21] MEDS: methylPREDNISolone SOD SUCCI 40 MG/ML 1 ML VIAL IV SCH (23:13)
[2024-04-21] MEDS: QUEtiapine 25 MG TAB PO SCH (23:13)
[2024-04-22] MEDS: SODIUM CHLORIDE 0.9% 1,000 ML IV SCH (03:38)
[2024-04-22 05:26] LABS: Appearance,Urine Clear (Clear); Bilirubin,Urine Negative (Negative); Blood,Urine Negative (Negative); Color,Urine Yellow; Glucose,Urine (UA) Negative (Negative); Ketones,Urine Trace (Negative); Leukocyte Esterase,Urine Negative (Negative); Nitrite,Urine Negative (Negative); PH, Urine 5.5 (5.0-8.0); Protein,Urine Trace (Negative); Specific Gravity,Urine 1.015 (1.001-1.035); Urobilinogen,Urine <2.0 mg/dL (<2.0)
[2024-04-22] MEDS: ZINC OXIDE PASTE (Z-GUARD) 1 APPLIC TOPICAL PRN (06:13)
[2024-04-22] MEDS: LEVOTHYROXINE 75 MCG TAB PO SCH (06:13)
[2024-04-22] MEDS: ALBUTEROL HFA INHALER INHALATION SCH (07:52)
[2024-04-22] MEDS: SYMBICORT 160-4.5 MCG INHALER INHALATION SCH (07:53)
[2024-04-22] MEDS: FERROUS SULFATE 325 MG TAB PO SCH (09:02)
[2024-04-22] MEDS: lisinopriL 20 MG TAB PO SCH (09:02)
[2024-04-22] MEDS: amLODIPine 5 MG TAB PO SCH (09:02)
[2024-04-22] MEDS: VENLAFAXINE HCL ER 150 MG CAP PO SCH (09:19)
[2024-04-22] MEDS: TAMSULOSIN 0.4 MG CAP.ER.24H PO SCH (11:34)
[2024-04-22 11:41] LABS: BUN/Creat Ratio 19.33 Ratio (12.00-20.00); Blood Urea Nitrogen 11.6 mg/dL (9.0-27.0); Glucose 138 mg/dL (70-110)
[2024-04-22 11:42] LABS: ALT 21 U/L (8-44); AST 32 U/L (13-35); Albumin 3.4 g/dL (3.8-4.9); Albumin/Globulin Ratio 1.55 Ratio (1.60-3.17); Alkaline Phosphatase 81 U/L (41-126); Calcium 9.2 mg/dL (8.7-10.3); Carbon Dioxide 21.6 mmol/L (21.6-31.8); Chloride 106 mmol/L (96-109); Globulin 2.2 g/dL (1.6-3.3); Potassium 5.6 mmol/L (3.5-5.5); Sodium 139 mmol/L (135-145); Total Bilirubin <0.2 mg/dL (0.3-1.2); Total Protein 5.6 g/dL (6.2-8.2)
[2024-04-22 11:54] LABS: Basophils # (M) 0 X 10*3/uL (0.00-0.10); Eosinophils # (M) 0 X 10*3/uL (0.04-0.35); HCT 39.7 % (37.2-46.3); Lymphocytes # (M) 0.35 X 10*3/uL (0.90-5.00); MCH 30.9 pg (27.0-32.0); MCHC 30.2 g/dL (32.0-37.0); MCV 102.3 FL (80.0-97.0); Mean Platelet Volume 8.9 FL (9.5-12.2); Metamyelocytes % 2 % (0-0); Monocytes # (M) 0 X 10*3/uL (0.20-1.00); Myelocytes % 6 % (0-0); NRBC Per 100 WBC 0.02 X 10*3/uL (0.00-0.01); Neutrophils # (M) 7.72 X 10*3/uL (1.80-7.70); Neutrophils % (M) 88 %; Platelet Count 530 X 10*3/uL (140-440); RBC 3.88 X 10*6/uL (4.10-5.20); RBC Morphology Normal (Normal); RDW 15.9 % (11.5-14.5); WBC 8.77 X 10*3/uL (4.50-10.00)
[2024-04-22] MEDS ORDERED: MELATONIN 5 MG TABLET PO PRN (12:03)
[2024-04-22] MEDS ORDERED: SENNOSIDES 8.6 MG TAB PO PRN (12:03)
--- NOTE | 2024-04-22 12:38 | P.CNPUL ---
History of Present Illness Consult date: 04/22/24 Requesting physician: Megan Esparza Reason for consult: dyspnea, abnormal CXR/CT Chief complaint: Shortness of breath cough, congestion, COVID History of present illness: This is a 68-year-old female patient with frequent hospitalizations. She has a history of congestive heart failure, chronic obstructive pulmonary disease, tobacco dependence, fibromyalgia, hypertension, hypothyroidism, anxiety. She was most recently discharged on 04/13/2024 after being treated for pneumonia, right leg wound and hyponatremia. Her right leg cellulitis with necrotic skin required debridement and was positive for MRSA as well as resistant Pseudomonas. Presented back to the emergency room yesterday 04/21/2024 with complaints of increased shortness of breath, cough and congestion. She states she tested po sitive for COVID on a home test on 04/19/2024. Chest x-ray shows diffuse nonspecific lung markings. Atypical pneumonia such as COVID or pulmonary edema considered. Count 8.7. Hemoglobin 12.0. Platelets 530. Sodium 139. Potassium 5.6. Bicarb 22. BUN 11. Creatinine 0.6. Glucose 138. She is seen today in consultation on the regular medical floor. She is currently sitting up in bed. Awake and alert in no acute distress. She does have a loose nonproductive cough. No fever or chills. Maintaining O2 saturation in the upper 90s on 5 L/min per nasal cannula. Review of Systems REVIEW OF SYSTEMS: CONSTITUTIONAL: Denies any recent significant weight loss or weight gain. EYES: Denies change in vision. EARS, NOSE, MOUTH, THROAT: Denies headaches, denies sore throat. CARDIOVASCULAR: Denies chest pain, palpitations or syncopal episodes. RESPIRATORY: Positive for shortness of breath, cough, congestion no hemoptysis. GASTROINTESTINAL: Denies change in appetite, denies abdominal pain GENITOURINARY: Denies hematuria, denies infections. MUSKULOSKELETAL: Denies pain, denies swelling. INTEGUMENTARY: Denies rash, denies eczema. NEUROLOGICAL: Denies recent memory loss, no recent seizure activity. PSYCHIATRIC: Positive for anxiety. HEMATOLOGIC/LYMPHATIC: Denies anemia, denies enlarged lymph nodes. Past Medical History Past Medical History: Asthma, Heart Failure, COPD, Fibromyalgia, GERD/Reflux, Hypertension, Osteoarthritis (OA), Pneumonia, Pulmonary Embolus (PE), Skin Disorder, Thyroid Disorder Additional Past Medical History / Comment(s): Spinal Stenosis, Cervical disc disease/stenosis, scoliosis, recently having numbness/tingling L side of face/neck, recently saw sales technician home theater for L hemidiaphragmatic elevation-pt states she was told this was probably genetic, recently bronchitis and past bronchitis, pt states recent med change (water pill) d/t electrolyte problem/kidney function being affected, pt states she has had pulmonary emboli, past bilateral lower extremity cellulitis, edema lower extremities, IBS, hemorrhoids, benign colon polyps, sinus problems, UTIs, bacteremia/sepsis, cardiac murmur, past L ankle and L wrist fractures. History of Any Multi-Drug Resistant Organisms: MRSA Date of last positivie culture/infection: 03/2024 MDRO Source:: Knee Past Surgical History: Bariatric Surgery, Section, Cholecystectomy, Hysterectomy, Tonsillectomy Additional Past Surgical History / Comment(s): EGD, colonoscopies, gastric bypass, surgery for deviated septum, left cataract removal (having laser procedure on that eye 11/24/23) Past Anesthesia/Blood Transfusion Reactions: Previous Problems w/ Anesthesia Additional Past Anesthesia/Blood Transfusion Reaction / Comment(s): itching after hysterectomy, some kind of breathing problem after gastric bypass-not sure what happened Past Psychological History: Anxiety, Bipolar, Depression, Panic Disorder Additional Psychological History / Comment(s): . Smoking Status: Current every day smoker Past Alcohol Use History: None Reported Additional Past Alcohol Use History / Comment(s): Pt started smoking in 1986 and quit when she went into [facility] 08/2021, started again after discharge from [facility] 05/2022 Past Drug Use History: Marijuana Additional Drug Use History / Comment(s): occassional cannabis use per pt - Past Family History Mother Family Medical History: Congestive Heart Failure (CHF), Hypertension Father History Unknown: Yes Additional Family Medical History / Comment(s): Father at the age of 45 yrs d/t having had rheumatic fever as a child and heart valve disease. Medications and Allergies Home Medications Medication Instructions Recorded Confirmed Type Montelukast [Singulair] 10 mg PO HS 12/17/13 04/21/24 History Levothyroxine Sodium [Synthroid] 150 mcg PO DAILY 03/29/20 04/21/24 History Budesonide/Formoterol Fumarate 2 puff INHALATION RT-BID 06/12/21 04/21/24 History [Symbicort 160-4.5 Mcg Inhaler] Famotidine [Pepcid] 20 mg PO BID 09/03/21 04/21/24 History Tamsulosin [Flomax] 0.4 mg PO DAILY@1200 10/26/21 04/21/24 History Ferrous Sulfate [Iron (65 MG 325 mg PO DAILY 11/13/22 04/21/24 History Elemental)] Ipratropium-Albuterol Nebulize 3 ml INHALATION RT-QID PRN 11/13/22 04/21/24 History [Duoneb 0.5 mg-3 mg/3 ml Soln] Thiamine [Vitamin B-1] 100 mg PO DAILY@1700 11/13/22 04/21/24 History Albuterol Inhaler [Ventolin Hfa 2 puff INHALATION RT-QID PRN #1 11/17/22 04/21/24 Rx Inhaler] each Ibandronate Sodium [Boniva] 150 mg PO Q30D 05/03/23 04/21/24 History Melatonin 5 mg PO HS PRN 05/03/23 04/21/24 History Acetaminophen [Tylenol Arthritis] 650 mg PO Q4HR PRN 10/24/23 04/21/24 History amLODIPine [Norvasc] 5 mg PO DAILY 12/12/23 04/21/24 History clonazePAM [KlonoPIN ODT] 0.25 mg PO HS 12/12/23 04/21/24 History OLANZapine [ZyPREXA] 15 mg PO HS 01/22/24 04/21/24 History Albuterol Nebulized [Ventolin 5 mg INHALATION RT-QID PRN #60 each 01/24/24 04/21/24 Rx Nebulized] HYDROcodone/APAP 5-325MG [[place] 1 tab PO Q6HR PRN 3 Days #12 tab 03/15/24 04/21/24 Rx 5-325] Folic Acid 1 mg PO DAILY@1700 03/18/24 04/21/24 History Venlafaxine HCl ER [Effexor XR] 150 mg PO DAILY 03/18/24 04/21/24 History hydrOXYzine HCL [Atarax] 25 mg PO BID 03/18/24 04/21/24 History lamoTRIgine [LaMICtal] 150 mg PO BID 03/18/24 04/21/24 History Divalproex ER [Depakote ER] 500 mg PO HS #60 tab 03/28/24 04/21/24 Rx Pyridoxine [Vitamin B-6] 50 mg PO DAILY #30 tab 03/28/24 04/21/24 Rx Gabapentin 300 mg PO TID 04/09/24 04/21/24 History Collagenase [Santyl Ointment] 1 applic TOPICAL DAILY each 04/13/24 04/21/24 Rx Nicotine 14Mg/24Hr Patch [Habitrol] 1 patch TRANSDERM DAILY patch 04/13/24 04/21/24 Rx QUEtiapine [SEROquel] 25 mg PO BID 30 Days #60 tab 04/13/24 04/21/24 Rx Sennosides [Senokot] 8.6 mg PO BID PRN tab 04/13/24 04/21/24 Rx lisinopriL [Prinivil] 20 mg PO DAILY 04/21/24 04/21/24 History Allergies Allergy/AdvReac Type Severity Reaction Status Date / Time codeine Allergy Unknown Verified 04/21/24 20:15 Childhood Penicillins Allergy Rash/Hives Verified 04/21/24 20:15 Sulfa (Sulfonamide Allergy Rash/Hives Verified 04/21/24 20:15 Antibiotics) Physical Exam Vitals: Vital Signs Temp Pulse Pulse Resp BP BP Pulse Ox 04/22/24 07:57 95 04/22/24 07:10 98.9 F 83 16 162/80 99 04/22/24 01:39 97.4 F L 66 19 139/74 100 04/21/24 22:22 75 20 147/70 90 L 04/21/24 20:59 97.7 F 94 21 134/89 68 L 04/21/24 19:00 98.7 F 69 17 132/57 92 L 04/21/24 17:59 97.9 F 69 20 141/61 93 L Intake and Output 04/21/24 04/22/24 04/22/24 22:59 06:59 14:59 Output Total 1200 Balance -1200 Output: Urine 1200 Straight 700 Other: Voiding Method External Catheter External Catheter Weight 68.039 kg GENERAL EXAM: Alert, anxious 68-year-old female, on 5 L nasal cannula, fairly co mfortable in no apparent distress. HEAD: Normocephalic. EYES: Normal reaction of pupils, equal size. NOSE: Clear with pink turbinates. THROAT: No erythema or exudates. NECK: No masses, no JVD. CHEST: No chest wall deformity. LUNGS: Equal air entry with bilateral scattered rhonchi. CVS: S1 and S2 normal with no audible murmur, regular rhythm. ABDOMEN: No hepatosplenomegaly, normal bowel sounds, no guarding or rigidity. SPINE: No scoliosis or deformity SKIN: No rashes CENTRAL NERVOUS SYSTEM: No focal deficits, tone is normal in all 4 extremities. EXTREMITIES: There is no peripheral edema. No clubbing, no cyanosis. Peripheral pulses are intact. Results - Laboratory Findings CBC and BMP: 04/22/24 05:48 04/22/24 05:48 Abnormal lab findings: Abnormal Labs 04/21/24 04/21/24 04/21/24 18:57 18:57 18:57 RBC 3.12 L Hgb 10.0 L Hct 31.5 L MCV 100.8 H MCHC RDW 15.9 H Plt Count 503 H MPV Neutrophils # (Manual) Lymphocytes # (Manual) Monocytes # (Manual) Eosinophils # (Manual) NRBC/100 WBC Diff Potassium Glucose Plasma Lactic Acid Joel <0.5 L Total Bilirubin Total Protein 5.1 L Albumin 2.8 L Albumin/Globulin Ratio Urine Protein Urine Ketones 04/22/24 04/22/24 04/22/24 04:45 05:48 05:48 RBC 3.88 L Hgb Hct MCV 102.3 H MCHC 30.2 L RDW 15.9 H Plt Count 530 H MPV 8.9 L Neutrophils # (Manual) 7.72 H Lymphocytes # (Manual) 0.35 L Monocytes # (Manual) 0 L Eosinophils # (Manual) 0 L NRBC/100 WBC Diff 0.02 H Potassium 5.6 H Glucose 138 H Plasma Lactic Acid Joel Total Bilirubin <0.2 L Total Protein 5.6 L Albumin 3.4 L Albumin/Globulin Ratio 1.55 L Urine Protein Trace H Urine Ketones Trace H - Diagnostic Findings Chest x-ray: image reviewed Assessment and Plan Assessment: Acute on chronic hypoxic respiratory failure secondary to COVID-19 infection, possible COVID-19 pneumonia Chronic hypoxemic respiratory failure, secondary to COPD, stable, on home oxygen Bipolar disorder with anxiety Fibromyalgia History of chronic tobacco dependence Hypothyroidism History of hypertension History of marijuana use Plan: The patient was seen and evaluated Chest x-ray, labs and medications reviewed Continue bronchodilators, steroids Titrate the FiO2 as tolerated Check a procalcitonin Educated regarding the importance of smoking cessation NicoDerm patch has been offered We will continue to follow and make further recommendations based on her clinical status I have personally seen and examined the patient, performed the documentation and the assessment and plan as written. Number of minutes spent on the visit: 20.
--- NOTE | 2024-04-22 13:19 | P.HPIM ---
History of Present Illness H&P Date: 04/22/24 History of present illness; 70-year female, who is a poor historian, presents to the emergency department with complaints of weakness, in the setting of a COVID- 19 infection. Patient states she tested positive on Wednesday. Patient states that she utilizes oxygen at home (she is unsure how much O2 exactly), however has been requiring it more frequently as of late. Patient's past medical history significant for heart failure, asthma, COPD, fibromyalgia, hypertension. She is currently on IV antibiotics for MRSA and stated that she had her last dose last night (04/20) at the time of arrival to the emergency department. Patient states that she has been having a cough, congestion, generalized weakness, lack of appetite. But denies nausea, vomiting, obvious fevers, or known sick contacts. On arrival patient was afebrile saturating 93% on 4 L nasal cannula with respiratory rate of 20, blood pressure 141/61 and heart rate of 69. As of this morning patient remains afebrile while saturating 99% on 5 L nasal cannula with respiratory to 16, blood pressure 160/80 and heart rate of 83. Patient has been present at this hospital multiple times for the past month, the beginning the month she was experiencing tingling, numbness, and weakness of the lower extremities which were not improved with her home dose of [place]. At that time cervical and lumbar spine MRI showed moderate severe spinal cord stenosis at C5-C6 as well as neuroforaminal stenosis right L2-L3, left L4- L5, L5-S1 which orthopedic stated can be managed outpatient. Additionally she was seen in this hospital as a result of increasing dizziness and feeling lightheaded, another time secondary to blurry vision without any additional focal deficits. She was most recently discharged on 04/13, at that time she was to continue IV antibiotics per infectious disease recommendation in the form Zyprexa and daptomycin along with oral Flagyl and to follow closely with nephrology and cardiology outpatient as scheduled. Pulmonology has been consulted and will continue to see the patient and provide recommendations regarding patient's COVID-19 pneumonia and chronic hypoxic respiratory failure. At this time she does not have any acute complaints, however is somewhat confused and unsure of exactly where she is, believing she is in a different hospital, and why she is here. She does endorse some shortness of breath when pr ompted, but believes she is here secondary to a previous fall. Initial lab work done in the ER showed WBCs 9.0, Hgb 10.0, Hct 31.5, MCV 100.8, PLT 503 Urinalysis unremarkable EKG done in the ER showed heart rate of 68, no ST segment elevation or depression seen, no T-wave inversions seen. Chest x-ray done in the ER diffuse nonspecific increased lung markings, atypical pneumonia such as COVID and pulmonary team should be considered. Correlate for congestive heart failure. Patient admitted to internal medicine service REVIEW OF SYSTEMS: CONSTITUTIONAL: No fever, no malaise, no fatigue. HEENT: No recent visual problems or hearing problems. Denied any sore throat. CARDIOVASCULAR: No chest pain, orthopnea, PND, no palpitations, no syncope. PULMONARY: No shortness of breath, no cough, no hemoptysis. GASTROINTESTINAL: No diarrhea, no nausea, no vomiting, no abdominal pain. NEUROLOGICAL: No headaches, no weakness, no numbness. HEMATOLOGICAL: Denies any bleeding or petechiae. GENITOURINARY: Denies any burning micturition, frequency, or urgency. MUSCULOSKELETAL/RHEUMATOLOGICAL: Denies any joint pain, swelling, or any muscle pain. ENDOCRINE: Denies any polyuria or polydipsia. The rest of the 14-point review of systems is negative. PHYSICAL EXAMINATION: GENERAL: The patient is alert and oriented x2, in some distress as a result of her confusion. HEENT: Pupils are round and equally reacting to light. EOMI. No scleral icterus. No conjunctival pallor. Normocephalic, atraumatic. No pharyngeal erythema. No thyromegaly. CARDIOVASCULAR: S1 and S2 present. No murmurs, rubs, or gallops. PULMONARY: No wheezing or crackles. Rhonchi bilaterally. ABDOMEN: Soft, nontender, nondistended, normoactive bowel sounds. No palpable organomegaly. MUSCULOSKELETAL: No joint swelling or deformity. EXTREMITIES: No cyanosis, clubbing, or pedal edema. Scraping noted on her right knee/lower thigh. NEUROLOGICAL: Gross neurological examination did not reveal any focal deficits. However the patient is somewhat confused. SKIN: Sabbing scrape noted over her right knee. Assessment and plan # Acute COVID-19 infection Patient tested positive on Wednesday (04/19) no retest on here in the hospital Patient being treated with IV steroids, small bolus of IV fluids as well as albuterol inhaler #Chronic hypoxic respiratory failure secondary to COPD exacerbation as a result of acute COVID-19 infection Patient maintained on 2 L oxygen at home with good oxygenation Patient currently saturating high 90%'s however requiring 5 L nasal cannula # Generalized weakness # Stable chronic macrocytic anemia Patient's hemoglobin 10.0, patient's baseline is always moderately anemic Patient's MCV General Indicative of macrocytosis, even with slight elevations # Hypertension Blood pressure maintained at home on 5 mg daily Norvasc # Possible altered mental status - Unsure of patient's baseline mental status - On examination today she is confused and unsure exactly why she is in the hospital/which hospital she is in. GI prophylaxis: Pepcid 20 mg twice daily DVT prophylaxis: Heparin 5000 units subcu every 8 hours Continue to monitor vital signs, monitor CBC, monitor CMP, continue telemetry monitoring Labs and medication were reviewed. Continue with symptomatic treatment. Resume home medication. Monitor labs and vitals. DVT and GI prophylaxis. Dictation was produced using [employer] dictation software. please excuse any grammatical, word or spelling errors. Attestation I have seen and examined this patient with my resident , discussed the same with the resident/BOUBACAR, and agree with the dictator's assessment and plan as written Dr. 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 History of Any Multi-Drug Resistant Organisms: MRSA Date of last positivie culture/infection: 03/2024 MDRO Source:: Knee Past Surgical History: Bariatric Surgery, Section, Cholecystectomy, Hysterectomy, Tonsillectomy Additional Past Surgical History / Comment(s): EGD, colonoscopies, gastric bypass, surgery for deviated septum, left cataract removal (having laser procedure on that eye 11/24/23) Past Anesthesia/Blood Transfusion Reactions: Previous Problems w/ Anesthesia Additional Past Anesthesia/Blood Transfusion Reaction / Comment(s): itching after hysterectomy, some kind of breathing problem after gastric bypass-not sure what happened Past Psychological History: Anxiety, Bipolar, Depression, Panic Disorder Additional Psychological History / Comment(s): . Smoking Status: Current every day smoker Past Alcohol Use History: None Reported Additional Past Alcohol Use History / Comment(s): Pt started smoking in 1986 and quit when she went into [facility] 08/2021, started again after discharge from [facility] 05/2022 Past Drug Use History: Marijuana Additional Drug Use History / Comment(s): occassional cannabis use per pt - Past Family History Mother Family Medical History: Congestive Heart Failure (CHF), Hypertension Father History Unknown: Yes Additional Family Medical History / Comment(s): Father at the age of 45 yrs d/t having had rheumatic fever as a child and heart valve disease. Medications and Allergies Home Medications Medication Instructions Recorded Confirmed Type Montelukast [Singulair] 10 mg PO HS 12/17/13 04/21/24 History Levothyroxine Sodium [Synthroid] 150 mcg PO DAILY 03/29/20 04/21/24 History Budesonide/Formoterol Fumarate 2 puff INHALATION RT-BID 06/12/21 04/21/24 History [Symbicort 160-4.5 Mcg Inhaler] Famotidine [Pepcid] 20 mg PO BID 09/03/21 04/21/24 History Tamsulosin [Flomax] 0.4 mg PO DAILY@1200 10/26/21 04/21/24 History Ferrous Sulfate [Iron (65 MG 325 mg PO DAILY 11/13/22 04/21/24 History Elemental)] Ipratropium-Albuterol Nebulize 3 ml INHALATION RT-QID PRN 11/13/22 04/21/24 History [Duoneb 0.5 mg-3 mg/3 ml Soln] Thiamine [Vitamin B-1] 100 mg PO DAILY@1700 11/13/22 04/21/24 History Albuterol Inhaler [Ventolin Hfa 2 puff INHALATION RT-QID PRN #1 11/17/22 1 Rx Inhaler] each Ibandronate Sodium [Boniva] 150 mg PO Q30D 05/03/23 04/21/24 History Melatonin 5 mg PO HS PRN 05/03/23 04/21/24 History Acetaminophen [Tylenol Arthritis] 650 mg PO Q4HR PRN 10/24/23 04/21/24 History amLODIPine [Norvasc] 5 mg PO DAILY 12/12/23 04/21/24 History clonazePAM [KlonoPIN ODT] 0.25 mg PO HS 12/12/23 04/21/24 History OLANZapine [ZyPREXA] 15 mg PO HS 01/22/24 04/21/24 History Albuterol Nebulized [Ventolin 5 mg INHALATION RT-QID PRN #60 each 01/24/24 04/21/24 Rx Nebulized] HYDROcodone/APAP 5-325MG [[place] 1 tab PO Q6HR PRN 3 Days #12 tab 03/15/24 04/21/24 Rx 5-325] Folic Acid 1 mg PO DAILY@1700 03/18/24 04/21/24 History Venlafaxine HCl ER [Effexor XR] 150 mg PO DAILY 03/18/24 04/21/24 History hydrOXYzine HCL [Atarax] 25 mg PO BID 03/18/24 04/21/24 History lamoTRIgine [LaMICtal] 150 mg PO BID 03/18/24 04/21/24 History Divalproex ER [Depakote ER] 500 mg PO HS #60 tab 03/28/24 04/21/24 Rx Pyridoxine [Vitamin B-6] 50 mg PO DAILY #30 tab 03/28/24 04/21/24 Rx Gabapentin 300 mg PO TID 04/09/24 04/21/24 History Collagenase [Santyl Ointment] 1 applic TOPICAL DAILY each 04/13/24 04/21/24 Rx Nicotine 14Mg/24Hr Patch [Habitrol] 1 patch TRANSDERM DAILY patch 04/13/24 04/21/24 Rx QUEtiapine [SEROquel] 25 mg PO BID 30 Days #60 tab 04/13/24 04/21/24 Rx Sennosides [Senokot] 8.6 mg PO BID PRN tab 04/13/24 04/21/24 Rx lisinopriL [Prinivil] 20 mg PO DAILY 04/21/24 04/21/24 History Allergies Allergy/AdvReac Type Severity Reaction Status Date / Time codeine Allergy Unknown Verified 04/21/24 20:15 Childhood Penicillins Allergy Rash/Hives Verified 04/21/24 20:15 Sulfa (Sulfonamide Allergy Rash/Hives Verified 04/21/24 20:15 Antibiotics) Physical Exam Vitals: Vital Signs Temp Pulse Pulse Resp BP BP Pulse Ox 04/22/24 07:10 98.9 F 83 16 162/80 99 04/22/24 01:39 97.4 F L 66 19 139/74 100 04/21/24 22:22 75 20 147/70 90 L 04/21/24 20:59 97.7 F 94 21 134/89 68 L 04/21/24 19:00 98.7 F 69 17 132/57 92 L 04/21/24 17:59 97.9 F 69 20 141/61 93 L Intake and Output 04/21/24 04/22/24 04/22/24 22:59 06:59 14:59 Output Total 1200 Balance -1200 Output: Urine 1200 Straight 700 Other: Voiding Method External Catheter Weight 68.039 kg Results CBC & Chem 7: 04/22/24 05:48 04/22/24 05:48 Labs: Abnormal Lab Results - Last 24 Hours (Table) 04/21/24 04/21/24 04/21/24 Range/Units 18:57 18:57 18:57 RBC 3.12 L (3.80-5.40) m/uL Hgb 10.0 L (11.4-16.0) gm/dL Hct 31.5 L (34.0-46.0) % MCV 100.8 H (80.0-100.0) fL RDW 15.9 H (11.5-15.5) % Plt Count 503 H (150-450) k/uL Plasma Lactic Acid Joel <0.5 L (0.7-2.0) mmol/L Total Protein 5.1 L (6.3-8.2) g/dL Albumin 2.8 L (3.5-5.0) g/dL Urine Protein (Negative) Urine Ketones (Negative) 04/22/24 Range/Units 04:45 RBC (3.80-5.40) m/uL Hgb (11.4-16.0) gm/dL Hct (34.0-46.0) % MCV (80.0-100.0) fL RDW (11.5-15.5) % Plt Count (150-450) k/uL Plasma Lactic Acid Joel (0.7-2.0) mmol/L Total Protein (6.3-8.2) g/dL Albumin (3.5-5.0) g/dL Urine Protein Trace H (Negative) Urine Ketones Trace H (Negative) Thrombosis Risk Factor Assmnt - Choose All That Apply Each Factor Represents 1 point: Abnormal pulmonary function (COPD) Each Risk Factor Represents 2 Points: Age 61-74 years Thrombosis Risk Factor Assessment Total Risk Factor Score: 3 Thrombosis Risk Factor Assessment Level: Moderate Risk
[2024-04-22] MEDS: THIAMINE 100 MG TAB PO SCH (17:02)
[2024-04-22] MEDS: FOLIC ACID 1 MG TAB PO SCH (17:02)
[2024-04-22] MEDS: MONTELUKAST 10 MG TAB PO SCH (20:16)
[2024-04-23 06:33] LABS: Glucose,Whole Blood 160 mg/dL (70-110)
[2024-04-23] MEDS: NICOTINE 14MG/24HR PATCH TRANSDERM SCH (09:01)
[2024-04-23] MEDS: PYRIDOXINE 50 MG TAB PO SCH (09:03)
--- NOTE | 2024-04-23 13:43 | P.PN ---
Subjective Progress Note Date: 04/23/24 This is a 68-year-old female patient with frequent hospitalizations. She has a history of congestive heart failure, chronic obstructive pulmonary disease, tobacco dependence, fibromyalgia, hypertension, hypothyroidism, anxiety. She was most recently discharged on 04/13/2024 after being treated for pneumonia, right leg wound and hyponatremia. Her right leg cellulitis with necrotic skin required debridement and was positive for MRSA as well as resistant Pseudomonas. Presented back to the emergency room yesterday 04/21/2024 with complaints of increased shortness of breath, cough and congestion. She states she tested positive for COVID on a home test on 04/19/2024. Chest x-ray shows diffuse nonspecific lung markings. Atypical pneumonia such as COVID or pulmonary edema considered. Count 8.7. Hemoglobin 12.0. Platelets 530. Sodium 139. Potassium 5.6. Bicarb 22. BUN 11. Creatinine 0.6. Glucose 138. She is seen today in consultation on the regular medical floor. She is currently sitting up in bed. Awake and alert in no acute distress. She does have a loose nonproductive cough. No fever or chills. Maintaining O2 saturation in the upper 90s on 5 L/min per nasal cannula. The patient is seen today April 23, 2024 in follow-up on the regular medical floor. She is currently resting in bed. Awake and alert in no acute distress. States she is still not feeling back to her baseline. No specific complaints. Just generalized complaints. She is maintaining O2 saturations in the 90s on 5 L/min per nasal cannula. She has been afebrile. Hemodynamically stable. Glucose 160. Procalcitonin negative. She remains on Symbicort, albuterol, Solu- Medrol and Singulair. NicoDerm patch in place. Heparin for DVT prophylaxis. Objective - Vital Signs Vital signs: Vital Signs Temp 98.4 F 04/23/24 08:00 Pulse 77 04/23/24 08:00 Resp 18 04/23/24 08:00 BP 170/73 04/23/24 08:00 Pulse Ox 90 L 04/23/24 08:00 FiO2 Intake & Output 04/22/24 04/23/24 04/23/24 18:59 06:59 18:59 Intake Total 540 Output Total 250 750 Balance 290 -750 Intake: Oral 540 Output: Urine 250 750 Other: Voiding Method External Catheter External Catheter # Voids 3 - Exam GENERAL EXAM: Alert, C8-year-old female, on 5 L nasal cannula, comfortable in no apparent distress. HEAD: Normocephalic. EYES: Normal reaction of pupils, equal size. NOSE: Clear with pink turbinates. THROAT: No erythema or exudates. NECK: No masses, no JVD. CHEST: No chest wall deformity. LUNGS: Equal air entry with bilateral scattered rhonchi. CVS: S1 and S2 normal with no audible murmur, regular rhythm. ABDOMEN: No hepatosplenomegaly, normal bowel sounds, no guarding or rigidity. SPINE: No scoliosis or deformity SKIN: No rashes CENTRAL NERVOUS SYSTEM: No focal deficits, tone is normal in all 4 extremities. EXTREMITIES: There is no peripheral edema. No clubbing, no cyanosis. Peripheral pulses are intact. - Labs CBC & Chem 7: 04/22/24 05:48 04/22/24 05:48 Labs: Abnormal Lab Results - Last 24 Hours (Table) 04/23/24 Range/Units 06:31 POC Glucose (mg/dL) 160 H (70-110) mg/dL Assessment and Plan Assessment: Acute on chronic hypoxic respiratory failure secondary to COVID-19 infection Chronic hypoxemic respiratory failure, secondary to COPD, stable, on home oxygen Bipolar disorder with anxiety Fibromyalgia History of chronic tobacco dependence Hypothyroidism History of hypertension History of marijuana use Plan: The patient was seen and evaluated Labs and medications reviewed Continue bronchodilators, steroids Titrate the FiO2 as tolerated We will continue to follow I have personally seen and examined the patient, performed the documentation and the assessment and plan as written. Number of minutes spent on the visit: 10.
--- NOTE | 2024-04-23 13:57 | P.PN ---
Subjective Progress Note Date: 04/23/24 70-year female, who is a poor historian, presents to the emergency department with complaints of weakness, in the setting of a COVID-19 infection. Patient states she tested positive on Wednesday. Patient states that she utilizes oxygen at home (she is unsure how much O2 exactly), however has been requiring it more frequently as of late. Patient's past medical history significant for heart failure, asthma, COPD, fibromyalgia, hypertension. She is currently on IV antibiotics for MRSA and stated that she had her last dose last night (04/20) at the time of arrival to the emergency department. Patient states that she has been having a cough, congestion, generalized weakness, lack of appetite. But denies nausea, vomiting, obvious fevers, or known sick contacts. On arrival patient was afebrile saturating 93% on 4 L nasal cannula with respiratory rate of 20, blood pressure 141/61 and heart rate of 69. As of this morning patient remains afebrile while saturating 99% on 5 L nasal cannula with respiratory to 16, blood pressure 160/80 and heart rate of 83. Patient has been present at this hospital multiple times for the past month, the beginning the month she was experiencing tingling, numbness, and weakness of the lower extremities which were not improved with her home dose of [place]. At that time cervical and lumbar spine MRI showed moderate severe spinal cord stenosis at C5-C6 as well as neuroforaminal stenosis right L2-L3, left L4-L5, L5-S1 which orthopedic stated can be managed outpatient. Additionally she was seen in this hospital as a result of increasing dizziness and feeling lightheaded, another time secondary to blurry vision without any additional focal deficits. She was most recently discharged on 04/13, at that time she was to continue IV antibiotics per infectious disease recommendation in the form Zyprexa and daptomycin along with oral Flagyl and to follow closely with nephrology and cardiology outpatient as scheduled. Pulmonology has been consulted and will continue to see the patient and provide recommendations regarding patient's COVID-19 pneumonia and chronic hypoxic respiratory failure. At this time she does not have any acute complaints, however is somewhat confused and unsure of exactly where she is, believing she is in a different hospital, and why she is here. She does endorse some shortness of breath when prompted, but believes she is here secondary to a previous fall. Initial lab work done in the ER showed WBCs 9.0, Hgb 10.0, Hct 31.5, MCV 100.8, PLT 503 Urinalysis unremarkable EKG done in the ER showed heart rate of 68, no ST segment elevation or depression seen, no T-wave inversions seen. Chest x-ray done in the ER diffuse nonspecific increased lung markings, atypical pneumonia such as COVID and pulmonary team should be considered. Correlate for congestive heart failure. Patient admitted to internal medicine service 04/23. Patient seen and examined. Patient continues to be confused, alert to self and place. States she is not doing well today REVIEW OF SYSTEMS: CONSTITUTIONAL: No fever, no malaise,. CARDIOVASCULAR: No chest pain, no palpitations, no syncope. PULMONARY: No shortness of breath, no cough, GASTROINTESTINAL: No diarrhea, no nausea, no vomiting, no abdominal pain. NEUROLOGICAL: No headaches, no weakness, PHYSICAL EXAMINATION: GENERAL: The patient is alert and oriented x1-2, not in any acute distress. Chronically ill looking HEENT: Pupils are round and equally reacting to light. EOMI. No scleral icterus. No conjunctival pallor. Normocephalic, atraumatic. No pharyngeal erythema. No thyromegaly. CARDIOVASCULAR: S1 and S2 present. No murmurs, rubs, or gallops. PULMONARY: Chest is clear to auscultation, no wheezing or crackles. ABDOMEN: Soft, nontender, nondistended, normoactive bowel sounds. No palpable organomegaly. MUSCULOSKELETAL: No joint swelling or deformity. EXTREMITIES: No cyanosis, clubbing, or pedal edema. NEUROLOGICAL: Gross neurological examination did not reveal any focal deficits. SKIN: No rashes. Assessment and plan # Acute COVID-19 infection Acute metabolic encephalopathy Patient tested positive on Wednesday (04/19) no retest on here in the hospital Patient being treated with IV steroids Continue breathing treatment Pulmonology following #Chronic hypoxic respiratory failure secondary to COPD exacerbation as a result of acute COVID-19 infection Patient maintained on 2 L oxygen at home with good oxygenation Patient currently saturating high 90%'s however requiring 5 L nasal cannula # Generalized weakness PT and OT consulted # Stable chronic macrocytic anemia Patient's hemoglobin 10.0, patient's baseline is always moderately anemic Patient's MCV General Indicative of macrocytosis, even with slight elevations # Hypertension Blood pressure maintained at home on 5 mg daily Norvasc Labs and medication were reviewed.. Continue same treatment. Continue with symptomatic treatment. Resume home medication. Monitor labs and vitals. DVT and GI prophylaxis. Further recommendations as per clinical course of the patient Dictation was produced using [employer] dictation software. please excuse any grammatical, word or spelling errors. Objective - Vital Signs Vital signs: Vital Signs Temp 98.4 F 04/23/24 08:00 Pulse 77 04/23/24 08:00 Resp 18 04/23/24 08:00 BP 170/73 04/23/24 08:00 Pulse Ox 90 L 04/23/24 08:00 FiO2 Intake & Output 04/22/24 04/23/24 04/23/24 18:59 06:59 18:59 Intake Total 540 Output Total 250 750 Balance 290 -750 Intake: Oral 540 Output: Urine 250 750 Other: Voiding Method External Catheter External Catheter # Voids 3 - Labs CBC & Chem 7: 04/22/24 05:48 04/22/24 05:48 Labs: Abnormal Lab Results - Last 24 Hours (Table) 04/22/24 04/22/24 04/23/24 Range/Units 05:48 05:48 06:31 RBC 3.88 L (4.10-5.20) X 10*6/uL MCV 102.3 H (80.0-97.0) FL MCHC 30.2 L (32.0-37.0) g/dL RDW 15.9 H (11.5-14.5) % Plt Count 530 H (140-440) X 10*3/uL MPV 8.9 L (9.5-12.2) FL Neutrophils # (Manual) 7.72 H (1.80-7.70) X 10*3/uL Lymphocytes # (Manual) 0.35 L (0.90-5.00) X 10*3/uL Monocytes # (Manual) 0 L (0.20-1.00) X 10*3/uL Eosinophils # (Manual) 0 L (0.04-0.35) X 10*3/uL NRBC/100 WBC Diff 0.02 H (0.00-0.01) X 10*3/uL Potassium 5.6 H (3.5-5.5) mmol/L Glucose 138 H (70-110) mg/dL POC Glucose (mg/dL) 160 H (70-110) mg/dL Total Bilirubin <0.2 L (0.3-1.2) mg/dL Total Protein 5.6 L (6.2-8.2) g/dL Albumin 3.4 L (3.8-4.9) g/dL Albumin/Globulin Ratio 1.55 L (1.60-3.17) Ratio
[2024-04-24 08:14] VITALS: BP 178/74; PULSE 80; RESP 18; TEMP 98.4
[2024-04-24] MEDS: COLLAGENASE 250 UNIT/GM OINTMENT 30 GM TUBE TOPICAL SCH (08:43)
--- NOTE | 2024-04-24 10:57 | P.PN ---
Subjective Progress Note Date: 04/24/24 70-year female, who is a poor historian, presents to the emergency department with complaints of weakness, in the setting of a COVID-19 infection. Patient states she tested positive on Wednesday. Patient states that she utilizes oxygen at home (she is unsure how much O2 exactly), however has been requiring it more frequently as of late. Patient's past medical history significant for heart failure, asthma, COPD, fibromyalgia, hypertension. She is currently on IV antibiotics for MRSA and stated that she had her last dose last night (04/20) at the time of arrival to the emergency department. Patient states that she has been having a cough, congestion, generalized weakness, lack of appetite. But denies nausea, vomiting, obvious fevers, or known sick contacts. On arrival patient was afebrile saturating 93% on 4 L nasal cannula with respiratory rate of 20, blood pressure 141/61 and heart rate of 69. As of this morning patient remains afebrile while saturating 99% on 5 L nasal cannula with respiratory to 16, blood pressure 160/80 and heart rate of 83. Patient has been present at this hospital multiple times for the past month, the beginning the month she was experiencing tingling, numbness, and weakness of the lower extremities which were not improved with her home dose of [place]. At that time cervical and lumbar spine MRI showed moderate severe spinal cord stenosis at C5-C6 as well as neuroforaminal stenosis right L2-L3, left L4-L5, L5-S1 which orthopedic stated can be managed outpatient. Additionally she was seen in this hospital as a result of increasing dizziness and feeling lightheaded, another time secondary to blurry vision without any additional focal deficits. She was most recently discharged on 04/13, at that time she was to continue IV antibiotics per infectious disease recommendation in the form Zyprexa and daptomycin along with oral Flagyl and to follow closely with nephrology and cardiology outpatient as scheduled. Pulmonology has been consulted and will continue to see the patient and provide recommendations regarding patient's COVID-19 pneumonia and chronic hypoxic respiratory failure. At this time she does not have any acute complaints, however is somewhat confused and unsure of exactly where she is, believing she is in a different hospital, and why she is here. She does endorse some shortness of breath when prompted, but believes she is here secondary to a previous fall. Initial lab work done in the ER showed WBCs 9.0, Hgb 10.0, Hct 31.5, MCV 100.8, PLT 503 Urinalysis unremarkable EKG done in the ER showed heart rate of 68, no ST segment elevation or depression seen, no T-wave inversions seen. Chest x-ray done in the ER diffuse nonspecific increased lung markings, atypical pneumonia such as COVID and pulmonary team should be considered. Correlate for congestive heart failure. Patient admitted to internal medicine service 04/23/24. Patient seen and examined. Patient continues to be confused, alert to self and place. States she is not doing well today 04/24/24. Patient seen and examined at bedside. No acute events overnight. No signs of confusion. Patient and oriented alert to person place and time. She states she feels a lot better, and wants to go home. REVIEW OF SYSTEMS: CONSTITUTIONAL: No fever, no malaise. CARDIOVASCULAR: No chest pain, no palpitations, no syncope. PULMONARY: No shortness of breath, no cough, GASTROINTESTINAL: No diarrhea, no nausea, no vomiting, no abdominal pain. NEUROLOGICAL: No headaches, no weakness, PHYSICAL EXAMINATION: GENERAL: The patient is alert and oriented x1-2, not in any acute distress. Chronically ill looking HEENT: Pupils are round and equally reacting to light. EOMI. No scleral icterus. No conjunctival pallor. Normocephalic, atraumatic. No pharyngeal erythema. No thyromegaly. CARDIOVASCULAR: S1 and S2 present. No murmurs, rubs, or gallops. PULMONARY: Chest is clear to auscultation, no wheezing or crackles. ABDOMEN: Soft, nontender, nondistended, normoactive bowel sounds. No palpable organomegaly. MUSCULOSKELETAL: No joint swelling or deformity. EXTREMITIES: No cyanosis, clubbing, or pedal edema. NEUROLOGICAL: Gross neurological examination did not reveal any focal deficits. SKIN: No rashes. Assessment and plan #. Acute COVID-19 infection #. Acute metabolic encephalopathy, resolved Patient tested positive on Wednesday (04/19) no retest on here in the hospital Patient being treated with solumedrol 40 mg IV qh8r, switch to oral steroids and taper Continue breathing treatment, wean to home O2 [facility] Pulmonology following #Chronic hypoxic respiratory failure secondary to COPD exacerbation as a result of acute COVID-19 infection Patient maintained on 3 L oxygen at home with good oxygenation Patient currently saturating 93% on 4 L nasal cannula # Generalized weakness PT and OT consulted # Stable chronic macrocytic anemia Patient's hemoglobin 10.0, patient's baseline is always moderately anemic Patient's MCV General Indicative of macrocytosis, even with slight elevations # Hypertension Blood pressure maintained at home on 5 mg daily Norvasc Labs and medication were reviewed.. Continue same treatment. Continue with symptomatic treatment. Resume home medication. Monitor labs and vitals. DVT and GI prophylaxis. Further recommendations as per clinical course of the patient Dictation was produced using [employer] dictation software. please excuse any grammatical, word or spelling errors. Objective - Vital Signs Vital signs: Vital Signs Temp 98.4 F 04/24/24 08:00 Pulse 80 04/24/24 08:00 Resp 18 04/24/24 08:00 BP 178/74 04/24/24 08:00 Pulse Ox 93 L 04/24/24 08:00 FiO2 Intake & Output 04/23/24 04/24/24 04/24/24 18:59 06:59 18:59 Output Total 1700 1200 Balance -1700 -1200 Output: Urine 1700 1200 Other: Voiding Method External Catheter - Labs CBC & Chem 7: 04/22/24 05:48 04/22/24 05:48
--- NOTE | 2024-04-24 13:48 | P.PN ---
Subjective Progress Note Date: 04/24/24 This is a 68-year-old female patient with frequent hospitalizations. She has a history of congestive heart failure, chronic obstructive pulmonary disease, tobacco dependence, fibromyalgia, hypertension, hypothyroidism, anxiety. She was most recently discharged on 04/13/2024 after being treated for pneumonia, right leg wound and hyponatremia. Her right leg cellulitis with necrotic skin required debridement and was positive for MRSA as well as resistant Pseudomonas. Presented back to the emergency room yesterday 04/21/2024 with complaints of increased shortness of breath, cough and congestion. She states she tested positive for COVID on a home test on 04/19/2024. Chest x-ray shows diffuse nonspecific lung markings. Atypical pneumonia such as COVID or pulmonary edema considered. Count 8.7. Hemoglobin 12.0. Platelets 530. Sodium 139. Potassium 5.6. Bicarb 22. BUN 11. Creatinine 0.6. Glucose 138. She is seen today in consultation on the regular medical floor. She is currently sitting up in bed. Awake and alert in no acute distress. She does have a loose nonproductive cough. No fever or chills. Maintaining O2 saturation in the upper 90s on 5 L/min per nasal cannula. The patient is seen today April 23, 2024 in follow-up on the regular medical floor. She is currently resting in bed. Awake and alert in no acute distress. States she is still not feeling back to her baseline. No specific complaints. Just generalized complaints. She is maintaining O2 saturations in the 90s on 5 L/min per nasal cannula. She has been afebrile. Hemodynamically stable. Glucose 160. Procalcitonin negative. She remains on Symbicort, albuterol, Solu- Medrol and Singulair. NicoDerm patch in place. Heparin for DVT prophylaxis. The patient is seen today April 24, 2024 in follow-up on the regular medical floor. She is currently resting in bed. Awake and alert in no acute distress. She is maintaining O2 saturations in the 90s on 4 L/min per nasal cannula. She is continued on Symbicort, albuterol, Solu-Medrol. Heparin for DVT prophylaxis. No new labs today. Objective - Vital Signs Vital signs: Vital Signs Temp 98.4 F 04/24/24 08:00 Pulse 80 04/24/24 08:00 Resp 18 04/24/24 08:00 BP 178/74 04/24/24 08:00 Pulse Ox 93 L 04/24/24 08:00 FiO2 Intake & Output 04/23/24 04/24/24 04/24/24 18:59 06:59 18:59 Intake Total 200 Output Total 1700 1200 1750 Balance -1700 -1200 -1550 Intake: Oral 200 Output: Urine 1700 1200 1750 Other: Voiding Method External Catheter - Exam GENERAL EXAM: Alert, anxious 68-year-old female, on 4 L nasal cannula, in no apparent distress. HEAD: Normocephalic. EYES: Normal reaction of pupils, equal size. NOSE: Clear with pink turbinates. THROAT: No erythema or exudates. NECK: No masses, no JVD. CHEST: No chest wall deformity. LUNGS: Equal air entry with bilateral scattered rhonchi. CVS: S1 and S2 normal with no audible murmur, regular rhythm. ABDOMEN: No hepatosplenomegaly, normal bowel sounds, no guarding or rigidity. SPINE: No scoliosis or deformity SKIN: No rashes CENTRAL NERVOUS SYSTEM: No focal deficits, tone is normal in all 4 extremities. EXTREMITIES: There is no peripheral edema. No clubbing, no cyanosis. Peripheral pulses are intact. - Labs CBC & Chem 7: 04/22/24 05:48 04/22/24 05:48 Assessment and Plan Assessment: Acute on chronic hypoxic respiratory failure secondary to COVID-19 infection Chronic hypoxemic respiratory failure, secondary to COPD, stable, on home oxygen Bipolar disorder with anxiety Fibromyalgia History of chronic tobacco dependence Hypothyroidism History of hypertension History of marijuana use Plan: The patient was seen and evaluated Medications reviewed Continue bronchodilators Continue Solu-Medrol, add prednisone taper Titrate the FiO2 as tolerated Increase activity as tolerated I have personally seen and examined the patient, performed the documentation and the assessment and plan as written. Number of minutes spent on the visit: 10.
--- NOTE | 2024-04-24 14:47 | P.DS ---
Providers Date of admission: 04/24/24 10:02 Expected date of discharge: 04/24/24 Attending physician: Megan Esparza Discharge Diagnosis: Acute COVID-19 infection Acute metabolic encephalopathy Chronic hypoxic respiratory failure secondary to COPD exacerbation as a result of acute COVID-19 infection Generalized weakness Weakness stable chronic macrocytic anemia Hypertension Hospital Course: 70-year female, who is a poor historian, presents to the emergency department with complaints of weakness, in the setting of a COVID-19 infection. Patient states she tested positive on Wednesday. Patient states that she utilizes oxygen at home (she is unsure how much O2 exactly), however has been requiring it more frequently as of late. Patient's past medical history significant for heart failure, asthma, COPD, fibromyalgia, hypertension. She is currently on IV antibiotics for MRSA and stated that she had her last dose last night (04/20) at the time of arrival to the emergency department. Patient states that she has been having a cough, congestion, generalized weakness, lack of appetite. But denies nausea, vomiting, obvious fevers, or known sick contacts. On arrival patient was afebrile saturating 93% on 4 L nasal cannula with respiratory rate of 20, blood pressure 141/61 and heart rate of 69. As of this morning patient remains afebrile while saturating 99% on 5 L nasal cannula with respiratory to 16, blood pressure 160/80 and heart rate of 83. Patient has been present at this hospital multiple times for the past month, the beginning the month she was experiencing tingling, numbness, and weakness of the lower extremities which were not improved with her home dose of Medora. At that time cervical and lumbar spine MRI showed moderate severe spinal cord stenosis at C5-C6 as well as neuroforaminal stenosis right L2-L3, left L4-L5, L5-S1 which orthopedic stated can be managed outpatient. Additionally she was seen in this hospital as a result of increasing dizziness and feeling lightheaded, another time secondary to blurry vision without any additional focal deficits. She was most recently discharged on 04/13, at that time she was to continue IV antibiotics per infectious disease recommendation in the form Zyprexa and daptomycin along with oral Flagyl and to follow closely with nephrology and cardiology outpatient as scheduled. Pulmonology has been consulted and will continue to see the patient and provide recommendations regarding patient's COVID-19 pneumonia and chronic hypoxic respiratory failure. At this time she does not have any acute complaints, however is somewhat confused and unsure of exactly where she is, believing she is in a different hospital, and why she is here. She does endorse some shortness of breath when prompted, but believes she is here secondary to a previous fall. Initial lab work done in the ER showed WBCs 9.0, Hgb 10.0, Hct 31.5, MCV 100.8, PLT 503 Urinalysis unremarkable EKG done in the ER showed heart rate of 68, no ST segment elevation or depression seen, no T-wave inversions seen. Chest x-ray done in the ER diffuse nonspecific increased lung markings, atypical pneumonia such as COVID and pulmonary team should be considered. Correlate for congestive heart failure. Patient admitted to internal medicine service 04/23/24: Patient seen and examined. Patient continues to be confused, alert to self and place. States she is not doing well today 04/24/24: Patient seen and examined at bedside. No acute events overnight. No signs of confusion. Patient and oriented alert to person place and time. She states she feels a lot better, and wants to go home. IV Solu-Medrol discontinued. Patient to be discharged home with prednisone 40 mg p.o. daily for 7 days. Vital signs reviewed and stable. Physical Exam: General non-toxic, no distress, appears appropriate age Derm warm, dry Head atruamatic, normocephalic, symmetric Eyes: EMOI Mouth: no lip lesion, mucus membranes moist Cardiovascular: S1S2 reg, no murmur Lungs: CTA bilateral, no rhonchi, no rales, no accessory muscle use Abdominal: soft, nontender to palpation, no guarding, no appreciable organomegaly Ext: no gross muscle atrophy, no edema, no contractures Neuro: CN II-XI grossly intact, no focal neuro deficits Psych: alert, oriented, appropriate affect A total of35 minutes of time were spent preparing this complex discharge summary. Patient was discharge on 04/24/2024 at 14:45 Attestation I have seen and examined this patient with my resident , discussed the same with the resident/BOUBACAR, and agree with the dictator's assessment and plan as written Dr. Richie rico Consults: 04/21/24 20:16 Consult Physician Routine Consulting Provider: Mayur Roche Consult Reason/Comments: covid 19 pneumonia, chronic hypoxic resp failure Do you want consulting provider notified?: Yes Primary care physician: Andrzej Wheeler Patient Condition at Discharge: Stable Plan - Discharge Summary Discharge Rx Participant: No New Discharge Prescriptions: New predniSONE [Deltasone] 40 mg PO DAILY 7 Days #14 tab Continue Montelukast [Singulair] 10 mg PO HS Levothyroxine Sodium [Synthroid] 150 mcg PO DAILY Thiamine [Vitamin B-1] 100 mg PO DAILY@1700 Ipratropium-Albuterol Nebulize [Duoneb 0.5 mg-3 mg/3 ml Soln] 3 ml INHALATION RT-QID PRN PRN Reason: Shortness Of Breath clonazePAM [KlonoPIN ODT] 0.25 mg PO HS OLANZapine [ZyPREXA] 15 mg PO HS Albuterol Nebulized [Ventolin Nebulized] 5 mg INHALATION RT-QID PRN #60 each PRN Reason: Shortness Of Breath Or Wheezing lamoTRIgine [LaMICtal] 150 mg PO BID Pyridoxine [Vitamin B-6] 50 mg PO DAILY #30 tab Divalproex ER [Depakote ER] 500 mg PO HS #60 tab Nicotine 14Mg/24Hr Patch [Habitrol] 1 patch TRANSDERM DAILY patch Collagenase [Santyl Ointment] 1 applic TOPICAL DAILY each Budesonide/Formoterol Fumarate [Symbicort 160-4.5 Mcg Inhaler] 2 puff INHALATION RT-BID Famotidine [Pepcid] 20 mg PO BID Tamsulosin [Flomax] 0.4 mg PO DAILY@1200 Ferrous Sulfate [Iron (65 MG Elemental)] 325 mg PO DAILY Albuterol Inhaler [Ventolin Hfa Inhaler] 2 puff INHALATION RT-QID PRN #1 each PRN Reason: Shortness Of Breath Melatonin 5 mg PO HS PRN PRN Reason: Insomnia Ibandronate Sodium [Boniva] 150 mg PO Q30D Acetaminophen [Tylenol Arthritis] 650 mg PO Q4HR PRN PRN Reason: Pain amLODIPine [Norvasc] 5 mg PO DAILY HYDROcodone/APAP 5-325MG [[place] 5-325] 1 tab PO Q6HR PRN 3 Days #12 tab PRN Reason: Pain hydrOXYzine HCL [Atarax] 25 mg PO BID Folic Acid 1 mg PO DAILY@1700 Venlafaxine HCl ER [Effexor XR] 150 mg PO DAILY Gabapentin 300 mg PO TID Sennosides [Senokot] 8.6 mg PO BID PRN tab PRN Reason: Constipation QUEtiapine [SEROquel] 25 mg PO BID 30 Days #60 tab lisinopriL [Prinivil] 20 mg PO DAILY Discharge Medication List Montelukast [Singulair] 10 mg PO HS 12/17/13 [History] Levothyroxine Sodium [Synthroid] 150 mcg PO DAILY 03/29/20 [History] Budesonide/Formoterol Fumarate [Symbicort 160-4.5 Mcg Inhaler] 2 puff INHALATION RT-BID 06/12/21 [History] Famotidine [Pepcid] 20 mg PO BID 09/03/21 [History] Tamsulosin [Flomax] 0.4 mg PO DAILY@1200 10/26/21 [History] Ferrous Sulfate [Iron (65 MG Elemental)] 325 mg PO DAILY 11/13/22 [History] Ipratropium-Albuterol Nebulize [Duoneb 0.5 mg-3 mg/3 ml Soln] 3 ml INHALATION RT-QID PRN 11/13/22 [History] Thiamine [Vitamin B-1] 100 mg PO DAILY@1700 11/13/22 [History] Albuterol Inhaler [Ventolin Hfa Inhaler] 2 puff INHALATION RT-QID PRN #1 each 11/17/22 [Rx] Ibandronate Sodium [Boniva] 150 mg PO Q30D 05/03/23 [History] Melatonin 5 mg PO HS PRN 05/03/23 [History] Acetaminophen [Tylenol Arthritis] 650 mg PO Q4HR PRN 10/24/23 [History] amLODIPine [Norvasc] 5 mg PO DAILY 12/12/23 [History] clonazePAM [KlonoPIN ODT] 0.25 mg PO HS 12/12/23 [History] OLANZapine [ZyPREXA] 15 mg PO HS 01/22/24 [History] Albuterol Nebulized [Ventolin Nebulized] 5 mg INHALATION RT-QID PRN #60 each 01/24/24 [Rx] HYDROcodone/APAP 5-325MG [[place] 5-325] 1 tab PO Q6HR PRN 3 Days #12 tab 03/15/24 [Rx] Folic Acid 1 mg PO DAILY@1700 03/18/24 [History] Venlafaxine HCl ER [Effexor XR] 150 mg PO DAILY 03/18/24 [History] hydrOXYzine HCL [Atarax] 25 mg PO BID 03/18/24 [History] lamoTRIgine [LaMICtal] 150 mg PO BID 03/18/24 [History] Divalproex ER [Depakote ER] 500 mg PO HS #60 tab 03/28/24 [Rx] Pyridoxine [Vitamin B-6] 50 mg PO DAILY #30 tab 03/28/24 [Rx] Gabapentin 300 mg PO TID 04/09/24 [History] Collagenase [Santyl Ointment] 1 applic TOPICAL DAILY each 04/13/24 [Rx] Nicotine 14Mg/24Hr Patch [Habitrol] 1 patch TRANSDERM DAILY patch 04/13/24 [Rx] QUEtiapine [SEROquel] 25 mg PO BID 30 Days #60 tab 04/13/24 [Rx] Sennosides [Senokot] 8.6 mg PO BID PRN tab 04/13/24 [Rx] lisinopriL [Prinivil] 20 mg PO DAILY 04/21/24 [History] predniSONE [Deltasone] 40 mg PO DAILY 7 Days #14 tab 04/24/24 [Rx] Follow up Appointment(s)/Referral(s): Andrzej Wheeler MD [Primary Care Provider] - 1-2 days Shaw Brannon DO [Doctor of Osteopathic Medicine] - 1 Week [facility], [NON-STAFF] - 1-2 Days ([facility] will call you to schedule your in home nursing, physical therapy, and occupational therapy visits. ) Patient Instructions/Handouts: COVID-19 (Coronavirus Disease 2019) (DC) Discharge Disposition: HOME WITH HOME HEALTH SERVICES
[2024-04-25] MEDS ORDERED: predniSONE 10 MG TAB PO SCH (09:00)
[2024-05-08] MEDS ORDERED: IBANDRONATE SODIUM 150 MG PO SCH (07:00)
== END 2024-04-24 16:53 | disposition home health service (06) | DRG 177 ==
LOC: EC 17:58 → 4SSUR 20:16 → OBSVTOIN 04-24 10:02
PROVIDERS: ADMIT Hospitalist; ATTEND Hospitalist
DX: U07.1 COVID-19 (principal); G93.41 Metabolic encephalopathy; J96.21 Acute and chronic respiratory failure with hypoxia; J44.1 Chronic obstructive pulmonary disease with (acute) exacerbation; L03.115 Cellulitis of right lower limb; M79.7 Fibromyalgia; I11.0 Hypertensive heart disease with heart failure; I50.9 Heart failure, unspecified; K21.9 Gastro-esophageal reflux disease without esophagitis; M19.90 Unspecified osteoarthritis, unspecified site; M48.02 Spinal stenosis, cervical region; M48.061 Spinal stenosis, lumbar region without neurogenic claudication; M48.07 Spinal stenosis, lumbosacral region; M50.30 Other cervical disc degeneration, unspecified cervical region; M41.9 Scoliosis, unspecified; B95.62 Methicillin resistant Staphylococcus aureus infection as the cause of diseases classified elsewhere; B96.5 Pseudomonas (aeruginosa) (mallei) (pseudomallei) as the cause of diseases classified elsewhere; D53.9 Nutritional anemia, unspecified; F41.0 Panic disorder [episodic paroxysmal anxiety]; F31.9 Bipolar disorder, unspecified; F17.200 Nicotine dependence, unspecified, uncomplicated; E03.9 Hypothyroidism, unspecified; K58.9 Irritable bowel syndrome, unspecified; D75.89 Other specified diseases of blood and blood-forming organs; Z99.81 Dependence on supplemental oxygen; Z88.5 Allergy status to narcotic agent; Z88.0 Allergy status to penicillin; Z88.2 Allergy status to sulfonamides; Z79.890 Hormone replacement therapy; Z79.899 Other long term (current) drug therapy; Z98.84 Bariatric surgery status; Z86.711 Personal history of pulmonary embolism; Z87.01 Personal history of pneumonia (recurrent); Z79.51 Long term (current) use of inhaled steroids
CPT/HCPCS: 36415; 71046; 80053; 81003; 83605; 83735; 84145; 85025; 93005; 94640; 94760; 96365; 96375; 99285

== ENCOUNTER 2024-05-16 09:58 | Emergency (ER) | payer MEDICARE ==
[2024-05-16 10:27] VITALS: BP 134/68; PULSE 69; RESP 20; TEMP 98.7
--- NOTE | 2024-05-16 10:56 | ED ---
Extremity Problem HPI - General Chief complaint: Extremity Problem,Nontraumatic Stated complaint: nerve pain, pain in legs Time Seen by Provider: 05/16/24 10:53 Source: patient, RN notes reviewed Mode of arrival: wheelchair - History of Present Illness Initial comments: 68-year-old female presenting to the ER with chief complaint of "nerve pain". Patient states over the past few months she has had increasing pain in bilateral legs and arms. She does state that she fell 2 weeks ago onto her left hip. Patient states she would like to see a neurologist about her symptoms. Denies bowel or bladder incontinence. Denies leg weakness, however she does admit some chronic numbness and tingling in bilateral arms and legs. - Related Data Home Medications Medication Instructions Recorded Confirmed Montelukast [Singulair] 10 mg PO HS 12/17/13 05/16/24 Levothyroxine Sodium [Synthroid] 150 mcg PO DAILY 03/29/20 05/16/24 Budesonide/Formoterol Fumarate 2 puff INHALATION RT-BID 06/12/21 05/16/24 [Symbicort 160-4.5 Mcg Inhaler] Famotidine [Pepcid] 20 mg PO BID 09/03/21 05/16/24 Tamsulosin [Flomax] 0.4 mg PO DAILY@1200 10/26/21 05/16/24 Ferrous Sulfate [Iron (65 MG 325 mg PO DAILY 11/13/22 05/16/24 Elemental)] Ipratropium-Albuterol Nebulize 3 ml INHALATION RT-QID PRN 11/13/22 05/16/24 [Duoneb 0.5 mg-3 mg/3 ml Soln] Thiamine [Vitamin B-1] 100 mg PO DAILY@1700 11/13/22 05/16/24 Ibandronate Sodium [Boniva] 150 mg PO Q30D 05/03/23 05/16/24 Melatonin 5 mg PO HS PRN 05/03/23 05/16/24 Acetaminophen [Tylenol Arthritis] 650 mg PO Q4HR PRN 10/24/23 05/16/24 amLODIPine [Norvasc] 5 mg PO DAILY 12/12/23 05/16/24 clonazePAM [KlonoPIN ODT] 0.25 mg PO HS 12/12/23 05/16/24 OLANZapine [ZyPREXA] 15 mg PO HS 01/22/24 05/16/24 Folic Acid 1 mg PO DAILY@1700 03/18/24 05/16/24 Venlafaxine HCl ER [Effexor XR] 150 mg PO DAILY 03/18/24 05/16/24 hydrOXYzine HCL [Atarax] 25 mg PO BID 03/18/24 05/16/24 lamoTRIgine [LaMICtal] 150 mg PO BID 03/18/24 05/16/24 Gabapentin 300 mg PO TID 04/09/24 05/16/24 lisinopriL [Prinivil] 20 mg PO DAILY 04/21/24 05/16/24 Metoprolol Tartrate [Lopressor] 25 mg PO BID 05/16/24 05/16/24 Previous Rx's Medication Instructions Recorded Albuterol Inhaler [Ventolin Hfa 2 puff INHALATION RT-QID PRN #1 11/17/22 Inhaler] each Albuterol Nebulized [Ventolin 5 mg INHALATION RT-QID PRN #60 each 01/24/24 Nebulized] HYDROcodone/APAP 5-325MG [[place] 1 tab PO Q6HR PRN 3 Days #12 tab 03/15/24 5-325] Divalproex ER [Depakote ER] 500 mg PO HS #60 tab 03/28/24 Pyridoxine [Vitamin B-6] 50 mg PO DAILY #30 tab 03/28/24 Collagenase [Santyl Ointment] 1 applic TOPICAL DAILY each 04/13/24 Nicotine 14Mg/24Hr Patch [Habitrol] 1 patch TRANSDERM DAILY patch 04/13/24 QUEtiapine [SEROquel] 25 mg PO BID 30 Days #60 tab 04/13/24 Sennosides [Senokot] 8.6 mg PO BID PRN tab 04/13/24 Allergies Allergy/AdvReac Type Severity Reaction Status Date / Time codeine Allergy Unknown Verified 05/16/24 13:18 Childhood Penicillins Allergy Rash/Hives Verified 05/16/24 13:18 Sulfa (Sulfonamide Allergy Rash/Hives Verified 05/16/24 13:18 Antibiotics) Review of Systems ROS Statement: Those systems with pertinent positive or pertinent negative responses have been documented in the HPI. ROS Other: All systems not noted in ROS Statement are negative. Past Medical History Past Medical History: Asthma, Heart Failure, COPD, Fibromyalgia, GERD/Reflux, Hypertension, Osteoarthritis (OA), Pneumonia, Pulmonary Embolus (PE), Skin Disorder, Thyroid Disorder Additional Past Medical History / Comment(s): Spinal Stenosis, Cervical disc disease/stenosis, scoliosis, recently having numbness/tingling L side of face/neck, recently saw staffing consultant for L hemidiaphragmatic elevation-pt states she was told this was probably genetic, recently bronchitis and past bronchitis, pt states recent med change (water pill) d/t electrolyte problem/kidney function being affected, pt states she has had pulmonary emboli, past bilateral lower extremity cellulitis, edema lower extremities, IBS, hemorrhoids, benign colon polyps, sinus problems, UTIs, bacteremia/sepsis, cardiac murmur, past L ankle and L wrist fractures. History of Any Multi-Drug Resistant Organisms: MRSA Date of last positivie culture/infection: 03/2024 MDRO Source:: Knee Past Surgical History: Bariatric Surgery, Section, Cholecystectomy, Hysterectomy, Tonsillectomy Additional Past Surgical History / Comment(s): EGD, colonoscopies, gastric bypass, surgery for deviated septum, left cataract removal (having laser procedure on that eye 11/24/23) Past Anesthesia/Blood Transfusion Reactions: Previous Problems w/ Anesthesia Additional Past Anesthesia/Blood Transfusion Reaction / Comment(s): itching after hysterectomy, some kind of breathing problem after gastric bypass-not sure what happened Past Psychological History: Anxiety, Bipolar, Depression, Panic Disorder Smoking Status: Current every day smoker Past Alcohol Use History: None Reported Past Drug Use History: Marijuana - Past Family History Mother Family Medical History: Congestive Heart Failure (CHF), Hypertension Father History Unknown: Yes Additional Family Medical History / Comment(s): Father at the age of 45 yrs d/t having had rheumatic fever as a child and heart valve disease. General Exam General appearance: alert, in no apparent distress Head exam: Present: atraumatic, normocephalic, normal inspection Extremities exam: Present: normal inspection, full ROM, normal capillary refill. Absent: tenderness, pedal edema, joint swelling, calf tenderness Neurological exam: Present: alert, oriented X3, CN II-XII intact Psychiatric exam: Present: normal affect, normal mood Skin exam: Present: warm, dry, intact, normal color. Absent: rash Course Vital Signs 05/16/24 10:23 Temperature 98.7 F Pulse Rate 69 Respiratory 20 Rate Blood Pressure 134/68 O2 Sat by Pulse 95 Oximetry Medical Decision Making - Medical Decision Making Was pt. sent in by a medical professional or institution (, PA, REHABILITATION THERAPY TECHNICIAN, urgent care, hospital, or correction...) When possible be specific @ -No Did you speak to anyone other than the patient for history (EMS, parent, family, police, friend...)? What history was obtained from this source @ -No Did you review nursing and triage notes (agree or disagree)? Why? @ -I reviewed and agree with nursing and triage notes Were old charts reviewed (outside hosp., previous admission, EMS record, old EKG, old radiological studies, urgent care reports/EKG's, correction records)? Report findings @ -No old charts were reviewed Differential Diagnosis (chest pain, altered mental status, abdominal pain women, abdominal pain men, vaginal bleeding, weakness, fever, dyspnea, syncope, headache, dizziness, GI bleed, back pain, seizure, CVA, palpatations, mental health, musculoskeletal)? @ -Differential Musculoskeletal Muscular strain, contusion, ligament sprain, fracture, arthritis, septic arthritis, bursitis, cellulitis, muscle spasm, nerve compression, DVT, arterial occlusion, herpes zoster, electrolyte abnormality, tumor.... This is not meant to be in all inclusive list EKG interpreted by me (3pts min.). @ -None X-rays interpreted by me (1pt min.). @ -X-ray left hip reveals no acute process CT interpreted by me (1pt min.). @ -None done U/S interpreted by me (1pt. min.). @ -None done What testing was considered but not performed or refused? (CT, X-rays, U/S, labs)? Why? @ -None What meds were considered but not given or refused? Why? @ -None Did you discuss the management of the patient with other professionals (professionals i.e. , HERMIN[facility], REHABILITATION THERAPY TECHNICIAN, lab, RT, psych nurse, social service assistant, compressed gases tester, teacher, chief creative officer, case worker)? Give summary @ -No Was smoking cessation discussed for >3mins.? @ -No Was critical care preformed (if so, how long)? @ -No Were there social determinants of health that impacted care today? How? (Homelessness, low income, unemployed, alcoholism, drug addiction, transportation, low edu. Level, literacy, decrease access to med. care, fci, rehab)? @ -No Was there de-escalation of care discussed even if they declined (Discuss DNR or withdrawal of care, Hospice)? DNR status @ -No What co-morbidities impacted this encounter? (DM, HTN, Smoking, COPD, CAD, Cancer, CVA, ARF, Chemo, Hep., AIDS, mental health diagnosis, sleep apnea, morbid obesity)? @ -None Was patient admitted / discharged? Hospital course, mention meds given and route, prescriptions, significant lab abnormalities, going to OR and other pertinent info. @ -Discharge. This is a 68-year-old female presenting with "nerve pain" and arms and legs bilaterally. Patient did have a fall onto her left hip 2 weeks ago and has been experiencing left hip pain since then. She is able to ambulate. Neurovascularly intact. Patient was provided with analgesics. X-ray left hip reveals no acute process. Negative results discussed with patient. Supportive care discussed. Advised to follow-up with PCP. Case was discussed with my ED attending Dr. Gould. Patient stable at time of discharge. Undiagnosed new problem with uncertain prognosis? @ -No Drug Therapy requiring intensive monitoring for toxicity (Heparin, Nitro, Insulin, Cardizem)? @ -No Were any procedures done? @ -No Diagnosis/symptom? @ -Left hip pain Acute, or Chronic, or Acute on Chronic? @ -Acute Uncomplicated (without systemic symptoms) or Complicated (systemic symptoms)? @ -Uncomplicated Side effects of treatment? @ -No Exacerbation, Progression, or Severe Exacerbation? @ -No Poses a threat to life or bodily function? How? (Chest pain, [place], ME, pneumonia, PE, COPD, DKA, ARF, appy, cholecystitis, CVA, Diverticulitis, Homicidal, Suicidal, threat to staff... and all critical care pts) @ -No Disposition Clinical Impression: Left hip pain Disposition: HOME SELF-CARE Condition: Stable Additional Instructions: Follow up with Dr. Wheeler as discussed. Please return to the Emergency Department if symptoms worsen or any other concerns. Is patient prescribed a controlled substance at d/c from ED?: No Referrals: Andrzej Wheeler MD [Primary Care Provider] - 1-2 days Time of Disposition: 13:15
[2024-05-16] MEDS: KETOROLAC 15 MG/ML 1 ML VIAL IM STA ×2 (12:08→13:28)
[2024-05-16] MEDS: methylPREDNISolone SOD SUCCI 125 MG/2 ML VIAL IM ONE (12:09)
--- NOTE | 2024-05-16 13:12 | XR ---
EXAMINATION TYPE: XR Hip Complete LT DATE OF EXAM: 05/16/2024 12:55 PM COMPARISON: 10/26/2021 CLINICAL INDICATION: Female, 68 years old with history of left hip injury; pain TECHNIQUE: XR Hip Complete LT; Frontal and lateral views FINDINGS: No evidence for acute process, joint dislocation or significant soft tissue swelling. IMPRESSION: No acute process. [facility], , 05/16/2024 1:10 PM
== END 2024-05-16 13:36 | disposition home or self-care (01) ==
LOC: EC 09:58
CPT/HCPCS: 73502; 96372; 99283

== ENCOUNTER 2024-05-22 09:53 | Inpatient (IN) | payer MEDICARE ==
[2024-05-22] MEDS: HYDROmorphone 0.5 MG/0.5 ML SYRINGE IVP STA ×2 (10:53→12:28)
[2024-05-22 10:59] LABS: Basophils % (A) 0 %; Eosinophils # (A) 0.3 k/uL (0-0.7); Eosinophils % (A) 3 %; HCT 37.2 % (34.0-46.0); HGB 12.7 gm/dL (11.4-16.0); Lymphocytes # (A) 1.8 k/uL (1.0-4.8); Lymphocytes % (A) 17 %; MCH 32.5 pg (25.0-35.0); MCHC 34.1 g/dL (31.0-37.0); Mean Platelet Volume 6.3; Monocytes # (A) 0.8 k/uL (0-1.0); Monocytes % (A) 8 %; Neutrophils # (A) 7.2 k/uL (1.3-7.7); Neutrophils % (A) 70 %; Platelet Count 275 k/uL (150-450); RBC 3.91 m/uL (3.80-5.40); WBC 10.3 k/uL (3.8-10.6)
[2024-05-22] MEDS: IPRATROPIUM-ALBUTEROL 3 ML NEB INHALATION STA (10:59)
[2024-05-22] MEDS: ALBUTEROL NEBULIZED 2.5 MG/3 ML INHALATION STA (10:59)
[2024-05-22 11:10] LABS: INR 0.9 (<1.2); Partial Thromboplastin Time 28.4 sec (22.0-30.0)
[2024-05-22 11:18] LABS: MCV 95.3 fL (80.0-100.0)
[2024-05-22 11:27] LABS: ALT 21 U/L (4-34); AST 41 U/L (14-36); African American GFR (CKD) >90 (>60 ml/min/1.73 sqM); Albumin 3.6 g/dL (3.5-5.0); Alkaline Phosphatase 57 U/L (38-126); Anion Gap 2 mmol/L; Blood Urea Nitrogen 8 mg/dL (7-17); Calcium 8.8 mg/dL (8.4-10.2); Carbon Dioxide 32 mmol/L (22-30); Chloride 76 mmol/L (98-107); Glucose 94 mg/dL (74-99); Magnesium 1.3 mg/dL (1.6-2.3); Non-African American GFR(CKD) >90 (>60 ml/min/1.73 sqM); Potassium 5.4 mmol/L (3.5-5.1); Total Bilirubin 0.4 mg/dL (0.2-1.3); Total Protein 5.9 g/dL (6.3-8.2)
[2024-05-22 11:35] LABS: NT-Pro-B-Type Natriuretic Pept 2000 pg/mL
[2024-05-22 11:38] LABS: Sodium 110 mmol/L (137-145)
[2024-05-22] MEDS: SODIUM CHLORIDE 0.9% 500 ML 500 ML IV ONE (12:02)
[2024-05-22] MEDS: MAGNESIUM SULFATE-D5W PMX 1 GM in DEXTROSE/WATER 1 100ML.BAG IVPB SCH ×2 (12:09→16:22)
[2024-05-22] MEDS: SODIUM CHLORIDE 0.9% 500 ML IV STA (12:11)
[2024-05-22] MEDS: SODIUM CHLORIDE 0.9% 1,000 ML IV SCH (12:12)
--- NOTE | 2024-05-22 12:40 | ED ---
General Adult HPI - General Chief complaint: Shortness of Breath Stated complaint: ИВАН Time Seen by Provider: 05/22/24 10:02 Source: patient, RN notes reviewed, old records reviewed Mode of arrival: ambulatory Limitations: no limitations - History of Present Illness Initial comments: 69-year-old female presenting for evaluation of chest discomfort across her entire lower chest and both arms. This has been present for the past several weeks. There is associated dyspnea. Patient is a current smoker with history of COPD. Denies fever. Denies nausea or vomiting. She also has a sensation of muscle cramping throughout her upper neck and arms. - Related Data Home Medications Medication Instructions Recorded Confirmed Montelukast [Singulair] 10 mg PO HS 12/17/13 05/22/24 Levothyroxine Sodium [Synthroid] 150 mcg PO DAILY 03/29/20 05/22/24 Budesonide/Formoterol Fumarate 2 puff INHALATION RT-BID 06/12/21 05/22/24 [Symbicort 160-4.5 Mcg Inhaler] Famotidine [Pepcid] 20 mg PO BID 09/03/21 05/22/24 Tamsulosin [Flomax] 0.4 mg PO DAILY 10/26/21 05/22/24 Ipratropium-Albuterol Nebulize 3 ml INHALATION RT-QID PRN 11/13/22 05/22/24 [Duoneb 0.5 mg-3 mg/3 ml Soln] Ibandronate Sodium [Boniva] 150 mg PO Q30D 05/03/23 05/22/24 clonazePAM [KlonoPIN ODT] 0.25 mg PO HS 12/12/23 05/22/24 OLANZapine [ZyPREXA] 15 mg PO HS 01/22/24 05/22/24 Venlafaxine HCl ER [Effexor XR] 150 mg PO DAILY 03/18/24 05/22/24 hydrOXYzine HCL [Atarax] 25 mg PO BID 03/18/24 05/22/24 lamoTRIgine [LaMICtal] 100 mg PO BID 03/18/24 05/22/24 lisinopriL [Prinivil] 20 mg PO DAILY 04/21/24 05/22/24 Metoprolol Tartrate [Lopressor] 25 mg PO BID 05/16/24 05/22/24 Previous Rx's Medication Instructions Recorded Albuterol Inhaler [Ventolin Hfa 2 puff INHALATION RT-QID PRN #1 11/17/22 Inhaler] each Divalproex ER [Depakote ER] 500 mg PO HS #60 tab 03/28/24 Pyridoxine [Vitamin B-6] 50 mg PO DAILY #30 tab 03/28/24 QUEtiapine [SEROquel] 25 mg PO BID 30 Days #60 tab 04/13/24 Allergies Allergy/AdvReac Type Severity Reaction Status Date / Time codeine Allergy Unknown Verified 05/22/24 12:42 Childhood Penicillins Allergy Rash/Hives Verified 05/22/24 12:42 Sulfa (Sulfonamide Allergy Rash/Hives Verified 05/22/24 12:42 Antibiotics) Review of Systems ROS Statement: Those systems with pertinent positive or pertinent negative responses have been documented in the HPI. ROS Other: All systems not noted in ROS Statement are negative. Past Medical History Past Medical History: Asthma, Heart Failure, COPD, Fibromyalgia, GERD/Reflux, Hypertension, Osteoarthritis (OA), Pneumonia, Pulmonary Embolus (PE), Skin Disorder, Thyroid Disorder Additional Past Medical History / Comment(s): Spinal Stenosis, Cervical disc disease/stenosis, scoliosis, recently having numbness/tingling L side of face/ neck, recently saw distributor of directories for L hemidiaphragmatic elevation-pt states she was told this was probably genetic, recently bronchitis and past bronchitis, pt states recent med change (water pill) d/t electrolyte problem/kidney function being affected, pt states she has had pulmonary emboli, past bilateral lower extremity cellulitis, edema lower extremities, IBS, hemorrhoids, benign colon polyps, sinus problems, UTIs, bacteremia/sepsis, cardiac murmur, past L ankle and L wrist fractures. History of Any Multi-Drug Resistant Organisms: MRSA Date of last positivie culture/infection: 03/2024 MDRO Source:: Knee Past Surgical History: Bariatric Surgery, Section, Cholecystectomy, Hysterectomy, Tonsillectomy Additional Past Surgical History / Comment(s): EGD, colonoscopies, gastric bypass, surgery for deviated septum, left cataract removal (having laser procedu re on that eye 11/24/23) Past Anesthesia/Blood Transfusion Reactions: Previous Problems w/ Anesthesia Additional Past Anesthesia/Blood Transfusion Reaction / Comment(s): itching after hysterectomy, some kind of breathing problem after gastric bypass-not sure what happened Past Psychological History: Anxiety, Bipolar, Depression, Panic Disorder Smoking Status: Current every day smoker Past Alcohol Use History: None Reported Past Drug Use History: Marijuana - Past Family History Mother Family Medical History: Congestive Heart Failure (CHF), Hypertension Father History Unknown: Yes Additional Family Medical History / Comment(s): Father at the age of 45 yrs d/t having had rheumatic fever as a child and heart valve disease. General Exam Limitations: no limitations General appearance: alert, in no apparent distress, anxious Head exam: Present: atraumatic, normocephalic Eye exam: Present: PERRL ENT exam: Present: mucous membranes dry Neck exam: Present: normal inspection. Absent: tenderness, meningismus Respiratory exam: Present: wheezes. Absent: respiratory distress Cardiovascular Exam: Present: regular rate, normal rhythm GI/Abdominal exam: Present: soft. Absent: distended, tenderness, guarding Neurological exam: Present: alert, oriented X3 Psychiatric exam: Present: anxious Skin exam: Present: warm, dry, intact Course Vital Signs 05/22/24 05/22/24 05/22/24 09:56 11:02 11:09 Temperature 98.5 F Pulse Rate 68 60 62 Respiratory 22 Rate Blood Pressure 170/71 O2 Sat by Pulse 94 L Oximetry Procedures - [place] Protocol (Time Out) Nurse: Rhonda Hernandez Medical Decision Making - Medical Decision Making Was pt. sent in by a medical professional or institution (, PA, [employer], urgent care, hospital, or [place] health [place] facility...) When possible be specific @ -No Did you speak to anyone other than the patient for history (EMS, parent, family, police, friend...)? What history was obtained from this source @ -No Did you review nursing and triage notes (agree or disagree)? Why? @ -I reviewed and agree with nursing and triage notes Were old charts reviewed (outside hosp., previous admission, EMS record, old EKG, old radiological studies, urgent care reports/EKG's, [place] health care facility records)? Report findings @ -No old charts were reviewed Differential Chest Pain: Stable Angina, Unstable Angina, STEMI, NSTEMI Aortic Dissection, Pneumothorax, Musculoskeletal, Esophageal Spasm GERD, Cholecystitis, Pancreatitis, Zoster, this is not meant to be an all-inclusive list. EKG interpreted by me (3pts min.). @ -Sinus rhythm rate of 64, widened QRS, [place] interval 187, QRS duration 126, QTc 400 X-rays interpreted by me (1pt min.). @ -[Chest x-ray shows bilateral effusion CT interpreted by me (1pt min.). @ -None done U/S interpreted by me (1pt. min.). @ -None done What testing was considered but not performed or refused? (CT, X-rays, U/S, labs)? Why? @ -None What meds were considered but not given or refused? Why? @ -None Did you discuss the management of the patient with other professionals (gabriel coles i.e. , PA, [employer], lab, RT, psych nurse, social media marketer, bulbs farmworker, teacher, equal opportunity officer, sample case porter)? Give summary @ -Case discussed with Dr. Sood who will admit, Dr. Carr covering for the ICU and Dr. Hampton covering for nephrology. Recommends repeat sodium at 1600. This has been ordered. Was smoking cessation discussed for >3mins.? @ -No Was critical care preformed (if so, how long)? @ -Yes, 35 minutes Were there social determinants of health that impacted care today? How? (Ho melessness, low income, unemployed, alcoholism, drug addiction, transportation, low edu. Level, literacy, decrease access to med. care, care home, rehab)? @ -No Was there de-escalation of care discussed even if they declined (Discuss DNR or withdrawal of care, Hospice)? DNR status @ -No What co-morbidities impacted this encounter? (DM, HTN, Smoking, COPD, CAD, Cancer, CVA, ARF, Chemo, Hep., AIDS, mental health diagnosis, sleep apnea, morbid obesity)? @ -copd Was patient admitted / discharged? Hospital course, mention meds given and route, prescriptions, significant lab abnormalities, going to OR and other pertinent info. @ -[69-year-old female presenting with chest pain, dyspnea, muscle cramping. Patient has significant hyponatremia initial sodium is 110, this is redrawn to confirm this profound hyponatremia redraw is 112, patient given 500 cc normal saline bolus followed by 75 cc per hour of normal saline. Case discussed with nephrology, internal medicine, and ICU attending. Patient admitted with planned redraw at 1600, to assess for the need for hypertonic saline. Undiagnosed new problem with uncertain prognosis? @ -No Drug Therapy requiring intensive monitoring for toxicity (Heparin, Nitro, Insulin, Cardizem)? @ -No Were any procedures done? @ -No Diagnosis/symptom? @ -Hyponatremia Acute, or Chronic, or Acute on Chronic? @ -Acute Uncomplicated (without systemic symptoms) or Complicated (systemic symptoms)? @ -Complicated Side effects of treatment? @ -No Exacerbation, Progression, or Severe Exacerbation? @ -No Poses a threat to life or bodily function? How? (Chest pain, [place], [place], pneumonia, PE, COPD, DKA, ARF, appy, cholecystitis, CVA, Diverticulitis, Homicidal, Suicidal, threat to staff... and all critical care pts) @ -[Yes, hyponatremia, seizure, - Lab Data Result diagrams: 05/22/24 10:46 05/22/24 12:32 Lab Results 05/22/24 05/22/24 05/22/24 Range/Units 10:46 10:46 10:46 WBC 10.3 (3.8-10.6) k/uL RBC 3.91 (3.80-5.40) m/uL Hgb 12.7 (11.4-16.0) gm/dL Hct 37.2 (34.0-46.0) % MCV 95.3 D (80.0-100.0) fL MCH 32.5 (25.0-35.0) pg MCHC 34.1 (31.0-37.0) g/dL RDW 13.0 (11.5-15.5) % Plt Count 275 (150-450) k/uL MPV 6.3 Neutrophils % 70 % Lymphocytes % 17 % Monocytes % 8 % Eosinophils % 3 % Basophils % 0 % Neutrophils # 7.2 (1.3-7.7) k/uL Lymphocytes # 1.8 (1.0-4.8) k/uL Monocytes # 0.8 (0-1.0) k/uL Eosinophils # 0.3 (0-0.7) k/uL Basophils # 0.0 (0-0.2) k/uL PT 10.0 (10.0-12.5) sec INR 0.9 (<1.2) APTT 28.4 (22.0-30.0) sec Sodium 110 L* (137-145) mmol/L Potassium 5.4 H (3.5-5.1) mmol/L Chloride 76 L (98-107) mmol/L Carbon Dioxide 32 H (22-30) mmol/L Anion Gap 2 mmol/L BUN 8 (7-17) mg/dL Creatinine 0.36 L (0.52-1.04) mg/dL Est GFR (CKD-EPI)AfAm >90 (>60 ml/min/1.73 sqM) Est GFR (CKD-EPI)NonAf >90 (>60 ml/min/1.73 sqM) Glucose 94 (74-99) mg/dL Plasma Lactic Acid Joel (0.7-2.0) mmol/L Calcium 8.8 (8.4-10.2) mg/dL Magnesium 1.3 L (1.6-2.3) mg/dL Total Bilirubin 0.4 (0.2-1.3) mg/dL AST 41 H (14-36) U/L ALT 21 (4-34) U/L Alkaline Phosphatase 57 (38-126) U/L Troponin I (0.000-0.034) ng/mL NT-Pro-B Natriuret Pep 2000 pg/mL Total Protein 5.9 L (6.3-8.2) g/dL Albumin 3.6 (3.5-5.0) g/dL 05/22/24 05/22/24 05/22/24 Range/Units 10:46 10:46 12:32 WBC (3.8-10.6) k/uL RBC (3.80-5.40) m/uL Hgb (11.4-16.0) gm/dL Hct (34.0-46.0) % MCV (80.0-100.0) fL MCH (25.0-35.0) pg MCHC (31.0-37.0) g/dL RDW (11.5-15.5) % Plt Count (150-450) k/uL MPV Neutrophils % % Lymphocytes % % Monocytes % % Eosinophils % % Basophils % % Neutrophils # (1.3-7.7) k/uL Lymphocytes # (1.0-4.8) k/uL Monocytes # (0-1.0) k/uL Eosinophils # (0-0.7) k/uL Basophils # (0-0.2) k/uL PT (10.0-12.5) sec INR (<1.2) APTT (22.0-30.0) sec Sodium 112 L* (137-145) mmol/L Potassium 5.2 H (3.5-5.1) mmol/L Chloride 79 L (98-107) mmol/L Carbon Dioxide 33 H (22-30) mmol/L Anion Gap 0 mmol/L BUN 7 (7-17) mg/dL Creatinine 0.38 L (0.52-1.04) mg/dL Est GFR (CKD-EPI)AfAm >90 (>60 ml/min/1.73 sqM) Est GFR (CKD-EPI)NonAf >90 (>60 ml/min/1.73 sqM) Glucose 100 H (74-99) mg/dL Plasma Lactic Acid Joel <0.5 L (0.7-2.0) mmol/L Calcium 8.3 L (8.4-10.2) mg/dL Magnesium (1.6-2.3) mg/dL Total Bilirubin (0.2-1.3) mg/dL AST (14-36) U/L ALT (4-34) U/L Alkaline Phosphatase (38-126) U/L Troponin I <0.012 (0.000-0.034) ng/mL NT-Pro-B Natriuret Pep pg/mL Total Protein (6.3-8.2) g/dL Albumin (3.5-5.0) g/dL Critical Care Time Critical Care Time: Yes Total Critical Care Time: 35 Disposition Clinical Impression: Hyponatremia, COPD (chronic obstructive pulmonary disease) Disposition: ADMITTED IP TO THIS HOSP Condition: Serious Is patient prescribed a controlled substance at d/c from ED?: No Referrals: Andrzej Wheeler MD [Primary Care Provider] - 1-2 days Time of Disposition: 14:22
[2024-05-22 13:04] LABS: African American GFR (CKD) >90 (>60 ml/min/1.73 sqM); Anion Gap 0 mmol/L; Blood Urea Nitrogen 7 mg/dL (7-17); Calcium 8.3 mg/dL (8.4-10.2); Carbon Dioxide 33 mmol/L (22-30); Chloride 79 mmol/L (98-107); Glucose 100 mg/dL (74-99); Non-African American GFR(CKD) >90 (>60 ml/min/1.73 sqM); Potassium 5.2 mmol/L (3.5-5.1)
[2024-05-22 13:08] LABS: Sodium 112 mmol/L (137-145)
--- NOTE | 2024-05-22 13:37 | XR ---
EXAMINATION TYPE: XR chest 2V DATE OF EXAM: 05/22/2024 COMPARISON: 04/21/2024 CLINICAL INDICATION: Female, 69 years old with history of difficulty breathing; , TECHNIQUE: XR chest 2V views of the chest. FINDINGS: Limited inspiration with interstitial pattern and small bilateral pleural effusion. Basilar infiltrat e bilaterally. Heart size upper limits of normal. Osteopenia, arthropathy of the shoulders and degene rative change of the spine. IMPRESSION: 1. Bilateral infiltrate and small effusion correlate for CHF. Otherwise consider pneumonia.. [facility], , 05/22/2024 1:34 PM
[2024-05-22] MEDS ORDERED: IPRATROPIUM-ALBUTEROL 3 ML NEB INHALATION PRN ×2 (14:15→14:52)
[2024-05-22] MEDS ORDERED: NALOXONE 0.4 MG/ML 1 ML VIAL IV PRN (14:15)
[2024-05-22] MEDS ORDERED: ALBUTEROL HFA INHALER INHALATION PRN (14:52)
[2024-05-22] MEDS: LORazepam 2 MG/ML INJ IV PRN (14:54)
[2024-05-22 15:08] LABS: Appearance,Urine Cloudy (Clear); Bacteria,Urine Occasional /hpf; Bilirubin,Urine Negative (Negative); Blood,Urine Negative (Negative); Color,Urine Colorless; Glucose,Urine (UA) Negative (Negative); Ketones,Urine Negative (Negative); Leukocyte Esterase,Urine Large (Negative); Mucus,Urine Rare /hpf; Nitrite,Urine Negative (Negative); Protein,Urine Negative (Negative); RBC,Urine 1 /hpf (0-5); Specific Gravity,Urine 1.005 (1.001-1.035); Squamous Epithelial Cell,Urine 49 /hpf (0-4); Urobilinogen,Urine <2.0 mg/dL (<2.0); WBC,Urine 23 /hpf (0-5)
[2024-05-22 15:09] LABS: ALT 108 U/L (4-34); AST 284 U/L (14-36); African American GFR (CKD) >90 (>60 ml/min/1.73 sqM); Albumin 3.4 g/dL (3.5-5.0); Alkaline Phosphatase 132 U/L (38-126); Anion Gap 1 mmol/L; Blood Urea Nitrogen 7 mg/dL (7-17); Calcium 8.4 mg/dL (8.4-10.2); Carbon Dioxide 31 mmol/L (22-30); Chloride 80 mmol/L (98-107); Glucose 110 mg/dL (74-99); Magnesium 1.9 mg/dL (1.6-2.3); Non-African American GFR(CKD) >90 (>60 ml/min/1.73 sqM); Potassium 5.1 mmol/L (3.5-5.1); Total Bilirubin 0.5 mg/dL (0.2-1.3); Total Protein 5.6 g/dL (6.3-8.2)
[2024-05-22 15:32] LABS: Sodium 112 mmol/L (137-145)
[2024-05-22] MEDS: IPRATROPIUM-ALBUTEROL 3 ML NEB INHALATION SCH (15:42)
[2024-05-22] MEDS: AZITHROMYCIN 500 MG in SODIUM CHLORIDE 0.9% 250 ML IVPB STA (16:26)
[2024-05-22 17:40] LABS: Glucose,Whole Blood 111 mg/dL (70-110)
--- NOTE | 2024-05-22 17:49 | P.CNPUL ---
History of Present Illness Consult date: 05/22/24 History of present illness: This is a 69-year-old female patient is coming into the intensive care unit for severe hyponatremia. The patient's sodium level was 110 and she was feeling extremely weak and she was also complaining of chest discomfort/pain across her entire upper and lower chest and both arms. Based on that, she came into the emergency department. She did complain of shortness of breath which is essentially chronic. She is known to have COPD. Denies having any nausea or emesis. No reported fever. No altered mentation and she continues to commun icate. Her sodium level in the emergency department was 110 with a potassium level of 5.4, bicarb of 32, BUN of 8 with a creatinine of 0.3. Calcium level was 8.8, mag was 1.3, lactic acid level was less than 0.5, bilirubin was 0.4, LFTs were normal and proBNP level was 2000. UA showed leukocyte esterase, 23 WBCs, 1 RBC. The white cell count was at 10.3 with a hemoglobin 12.7 and a platelet count of 275. The patient's chest x-ray at the time of admission showed bilateral small effusions, consistent with some CHF and it showed also mild pulm vessel congestion. It showed smaller lung volumes. EKG showed a normal sinus rhythm with LVH. Patient was seen in the emergency, nephrology has been consulted, based on that, the patient was started on normal saline normal saline at rate of 75 cc an hour. Her most recent sodium level came at 115. Urine output is adequate and the patient has a Husain catheter in place. She has been maintained on various medication outpatient basis including Seroquel, Effexor and and Zyprexa. Urine studies are still pending for now. The patient is known to have multiple hospitalizations in the past. She is known to have COPD, CHF, fibromyalgia, hypertension, hypothyroidism, and chronic anxiety. She has not also previous hospitalization related to COVID-19 infection with secondary hypoxic respiratory failure and the patient was in the hospital for COVID-19 related complications approximately a month ago. She was discharged from the hospital on 04/24/2024 with normal sodium level. She also has previous history of right leg wound that required debridement and was positive for MRSA and Pseudomonas. Review of Systems CONSTITUTIONAL: Denies any recent significant weight loss or weight gain. EYES: Denies change in vision. EARS, NOSE, MOUTH, THROAT: Denies headaches, denies sore throat. CARDIOVASCULAR: Denies chest pain, palpitations or syncopal episodes. RESPIRATORY: Positive for shortness of breath, cough, congestion no hemoptysis. GASTROINTESTINAL: Denies change in appetite, denies abdominal pain GENITOURINARY: Denies hematuria, denies infections. MUSKULOSKELETAL: Denies pain, denies swelling. INTEGUMENTARY: Denies rash, denies eczema. NEUROLOGICAL: Denies recent memory loss, no recent seizure activity. PSYCHIATRIC: Positive for anxiety. HEMATOLOGIC/LYMPHATIC: Denies anemia, denies enlarged lymph nodes. Past Medical History Past Medical History: Asthma, Heart Failure, COPD, Fibromyalgia, GERD/Reflux, Hypertension, Osteoarthritis (OA), Pneumonia, Pulmonary Embolus (PE), Skin Disorder, Thyroid Disorder Additional Past Medical History / Comment(s): Spinal Stenosis, Cervical disc disease/stenosis, scoliosis, recently having numbness/tingling L side of face/neck, recently saw disability insurance claim examiner for L hemidiaphragmatic elevation-pt [facility] she was told this was probably genetic, recently bronchitis and past bronchitis, pt states recent med change (water pill) d/t electrolyte problem/kidney function being affected, pt states she has had pulmonary emboli, past bilateral lower extremity cellulitis, edema lower extremities, IBS, hemor rhoids, benign colon polyps, sinus problems, UTIs, bacteremia/sepsis, cardiac murmur, past L ankle and L wrist fractures. History of Any Multi-Drug Resistant Organisms: MRSA Date of last positivie culture/infection: 03/2024 MDRO Source:: Knee Past Surgical History: Bariatric Surgery, Section, Cholecystectomy, Hysterectomy, Tonsillectomy Additional Past Surgical History / Comment(s): EGD, colonoscopies, gastric bypass, surgery for deviated septum, left cataract removal (having laser procedure on that eye 11/24/23) Past Anesthesia/Blood Transfusion Reactions: Previous Problems w/ Anesthesia Additional Past Anesthesia/Blood Transfusion Reaction / Comment(s): itching after hysterectomy, some kind of breathing problem after gastric bypass-not sure what happened Past Psychological History: Anxiety, Bipolar, Depression, Panic Disorder Smoking Status: Current every day smoker Past Alcohol Use History: None Reported Past Drug Use History: Marijuana - Past Family History Mother Family Medical History: Congestive Heart Failure (CHF), Hypertension Father History Unknown: Yes Additional Family Medical History / Comment(s): Father at the age of 45 yrs d/t having had rheumatic fever as a child and heart valve disease. Medications and Allergies Home Medications Medication Instructions Recorded Confirmed Type Montelukast [Singulair] 10 mg PO HS 12/17/13 05/22/24 History Levothyroxine Sodium [Synthroid] 150 mcg PO DAILY 03/29/20 05/22/24 History Budesonide/Formoterol Fumarate 2 puff INHALATION RT-BID 06/12/21 05/22/24 History [Symbicort 160-4.5 Mcg Inhaler] Famotidine [Pepcid] 20 mg PO BID 09/03/21 05/22/24 History Tamsulosin [Flomax] 0.4 mg PO DAILY 10/26/21 05/22/24 History Ipratropium-Albuterol Nebulize 3 ml INHALATION RT-QID PRN 11/13/22 05/22/24 History [Duoneb 0.5 mg-3 mg/3 ml Soln] Albuterol Inhaler [Ventolin Hfa 2 puff INHALATION RT-QID PRN #1 11/17/22 05/22/24 Rx Inhaler] each Ibandronate Sodium [Boniva] 150 mg PO Q30D 05/03/23 05/22/24 History clonazePAM [KlonoPIN ODT] 0.25 mg PO HS 12/12/23 05/22/24 History OLANZapine [ZyPREXA] 15 mg PO HS 01/22/24 05/22/24 History Venlafaxine HCl ER [Effexor XR] 150 mg PO DAILY 03/18/24 05/22/24 History hydrOXYzine HCL [Atarax] 25 mg PO BID 03/18/24 05/22/24 History lamoTRIgine [LaMICtal] 100 mg PO BID 03/18/24 05/22/24 History Divalproex ER [Depakote ER] 500 mg PO HS #60 tab 03/28/24 05/22/24 Rx Pyridoxine [Vitamin B-6] 50 mg PO DAILY #30 tab 03/28/24 05/22/24 Rx QUEtiapine [SEROquel] 25 mg PO BID 30 Days #60 tab 04/13/24 05/22/24 Rx lisinopriL [Prinivil] 20 mg PO DAILY 04/21/24 05/22/24 History Metoprolol Tartrate [Lopressor] 25 mg PO BID 05/16/24 05/22/24 History Allergies Allergy/AdvReac Type Severity Reaction Status Date / Time codeine Allergy Unknown Verified 05/22/24 12:42 Childhood Penicillins Allergy Rash/Hives Verified 05/22/24 12:42 Sulfa (Sulfonamide Allergy Rash/Hives Verified 05/22/24 12:42 Antibiotics) Physical Exam Vitals: Vital Signs Temp Pulse Resp BP Pulse Ox 05/22/24 17:00 62 14 176/89 95 05/22/24 16:20 63 18 176/89 99 05/22/24 16:00 65 14 147/76 98 05/22/24 15:53 61 05/22/24 15:43 60 05/22/24 15:00 57 L 16 141/63 96 05/22/24 14:00 59 L 14 126/70 96 05/22/24 13:00 58 L 16 147/77 96 05/22/24 11:09 62 05/22/24 11:02 60 05/22/24 11:00 60 14 156/76 95 05/22/24 09:56 98.5 F 68 22 170/71 94 L Intake and Output 05/22/24 05/22/24 05/22/24 06:59 14:59 22:59 Other: Weight 70.307 kg GENERAL EXAM: Alert, anxious 69-year-old female, on 3 L nasal cannula, fairly comfortable in no apparent distress. HEAD: Normocephalic. EYES: Normal reaction of pupils, equal size. NOSE: Clear with pink turbinates. THROAT: No erythema or exudates. NECK: No masses, no JVD. CHEST: No chest wall deformity. LUNGS: Equal air entry with bilateral scattered rhonchi. CVS: S1 and S2 normal with no audible murmur, regular rhythm. ABDOMEN: No hepatosplenomegaly, normal bowel sounds, no guarding or rigidity. SPINE: No scoliosis or deformity SKIN: No rashes, healing wound in the right hogan, no active drainage or abscess CENTRAL NERVOUS SYSTEM: No focal deficits, tone is normal in all 4 extremities. EXTREMITIES: There is no peripheral edema. No clubbing, no cyanosis. Peripher al pulses are intact. Results - Laboratory Findings CBC and BMP: 05/22/24 10:46 05/22/24 16:40 PT/INR, D-dimer PT 10.0 sec (10.0-12.5) 05/22/24 10:46 INR 0.9 (<1.2) 05/22/24 10:46 Abnormal lab findings: Abnormal Labs 05/22/24 05/22/24 05/22/24 10:46 10:46 12:32 Sodium 110 L* 112 L* Potassium 5.4 H 5.2 H Chloride 76 L 79 L Carbon Dioxide 32 H 33 H Creatinine 0.36 L 0.38 L Glucose 100 H Plasma Lactic Acid Joel <0.5 L Calcium 8.3 L Magnesium 1.3 L AST 41 H ALT Alkaline Phosphatase Total Protein 5.9 L Albumin Urine Appearance Ur Leukocyte Esterase Urine WBC Ur Squamous Epith Cells Urine Bacteria Urine Mucus 05/22/24 05/22/24 05/22/24 14:49 14:49 16:40 Sodium 112 L* 115 L* Potassium Chloride 80 L Carbon Dioxide 31 H Creatinine 0.36 L Glucose 110 H Plasma Lactic Acid Joel Calcium Magnesium AST 284 H ALT 108 H Alkaline Phosphatase 132 H Total Protein 5.6 L Albumin 3.4 L Urine Appearance Cloudy H Ur Leukocyte Esterase Large H Urine WBC 23 H Ur Squamous Epith Cells 49 H Urine Bacteria Occasional H Urine Mucus Rare H Assessment and Plan Plan: Acute hypovolemic, hypochloremic hyponatremia, responding to normal saline and the patient is currently on NSS at 75 cc an hour. Sodium level initially was 110 and current level is at 115. Slightly lethargic. No altered mentation. No seizure activity. No focal neurological deficit. COVID-19 infection requiring recent hospitalization for an acute on top of chronic hypoxic respiratory failure, discharged from hospital approximately 4 w eeks ago Chronic hypoxemic respiratory failure, Advanced COPD, stable, on home oxygen ar 3 liters/min Bipolar disorder with anxiety Fibromyalgia History of chronic tobacco dependence Hypothyroidism History of hypertension History of marijuana use Right lower extremity wound at the level of her hogan, healing. No signs of any acute or ongoing infection at this point Cervical spinal stenosis Scoliosis Irritable bowel syndrome History of colonic polyps Previous history of urine tract infection with Enterococcus History of gastric bypass surgery Plan: Check urine osmolality, urine sodium Continue normal saline at rate of 75 cc an hour Monitor sodium level and avoid any overcorrection's Consult nephrology and Titrate the FiO2 as tolerated Educated regarding the importance of smoking cessation NicoDerm patch has been offered Continue Lamictal and Depakote We will further investigate the need for Zyprexa and Seroquel in combination Effexor Check thyroid function tests UA Resume Synthroid We will continue to follow and make further recommendations based on her clinical status
[2024-05-22] MEDS: HEPARIN SODIUM,PORCINE 5,000 UNIT/ML 1 ML VIAL SQ SCH (18:58)
[2024-05-22] MEDS: SYMBICORT 160-4.5 MCG INHALER INHALATION SCH (20:56)
[2024-05-22] MEDS: SODIUM CHLORIDE 0.45% 1,000 ML IV SCH (21:08)
[2024-05-22] MEDS: DIVALPROEX ER 500 MG TAB.ER.24H PO SCH (21:13)
[2024-05-22] MEDS: MONTELUKAST 10 MG TAB PO SCH (21:13)
[2024-05-22] MEDS: FAMOTIDINE 20 MG TAB PO SCH (21:13)
[2024-05-22] MEDS: lamoTRIgine 100 MG TAB PO SCH (21:13)
--- NOTE | 2024-05-22 23:00 | P.HPIM ---
History of Present Illness H&P Date: 05/22/24 Chief Complaint: Cramping pain Patient is a 69-year-old female with a past medical history of hypertension, fibromyalgia, COPD, GERD, history of PE, hypothyroidism, spinal stenosis, cervical disc disease/stenosis, scoliosis, anxiety/depression/bipolar/panic disorder and currently everyday smoker and occasional marijuana use. Patient presents to ER with complaints of cramping pain across the upper chest, shoulder and both arms. Patient has been having symptoms for the past few weeks. Referred for shortness of breath. No nausea or vomiting. Denied any fever or chills. No cough or sputum production. EKG showed sinus rhythm. Chest x-ray showed bilateral infiltrate and small effusion correlate for CHF. Otherwise consider pneumonia. Laboratory data showed WBC 10.3 hemoglobin 12.7 platelets 275 Sodium 110 potassium 5.4 chloride 76 bicarb is 32 BUN 18 creatinine 0.36 Magnesium 1.3 AST 41 ALT 21 alk phos 57 and proBNP 2000 Urinalysis cloudy with large leukocyte esterase with elevated RBCs and squamous epithelial cells 49. Patient is on psychiatric medication including Zyprexa, Seroquel and Effexor. Patient is also on Klonopin for anxiety/panic disorder. Patient was given a dose of ceftriaxone azithromycin for possible pneumonia. Urine Legionella antigen and procalcitonin level was ordered. Review of Systems Constitutional: Patient denies any fever or chills . Generalized weakness. No weight loss. Abdomen: Patient denied nausea vomiting and diarrhea and abdominal pain. Cardiovascular: Patient denies any chest pain or short of breath no palpitations. Respiratory: patient denied any cough or sputum production. No shortness of breath Neurologic: Patient denied any numbness or tingling. no headache. Musculoskeletal: Patient denies any complaints of joint swelling or deformity. Cramping chest pain and shoulder pain. Skin: Negative Psychiatric: Negative Endocrine: No heat or cold intolerance. No recent weight gain. Genitourinary: No dysuria or hematuria. All other 14 point ROS negative except the above Past Medical History Past Medical History: Asthma, Heart Failure, COPD, Fibromyalgia, GERD/Reflux, Hypertension, Osteoarthritis (OA), Pneumonia, Pulmonary Embolus (PE), Skin Disorder, Thyroid Disorder Additional Past Medical History / Comment(s): Spinal Stenosis, Cervical disc disease/stenosis, scoliosis, recently having numbness/tingling L side of face/neck, recently saw wrecker operator for L hemidiaphragmatic elevation-pt states she was told this was probably genetic, recently bronchitis and past bronchitis, pt states recent med change (water pill) d/t electrolyte problem/kidney function being affected, pt states she has had pulmonary emboli, past bilateral lower extremity cellulitis, edema lower extremities, IBS, hemorrhoids, benign colon polyps, sinus problems, UTIs, bacteremia/sepsis, cardiac murmur, past L ankle and L wrist fractures. History of Any Multi-Drug Resistant Organisms: MRSA Date of last positivie culture/infection: 03/2024 MDRO Source:: Knee Past Surgical History: Bariatric Surgery, Section, Cholecystectomy, Hysterectomy, Tonsillectomy Additional Past Surgical History / Comment(s): EGD, colonoscopies, gastric bypass, surgery for deviated septum, left cataract removal (having laser procedure on that eye 11/24/23) Past Anesthesia/Blood Transfusion Reactions: Previous Problems w/ Anesthesia Additional Past Anesthesia/Blood Transfusion Reaction / Comment(s): itching after hysterectomy, some kind of breathing problem after gastric bypass-not sure what happened Past Psychological History: Anxiety, Bipolar, Depression, Panic Disorder Smoking Status: Current every day smoker Past Alcohol Use History: None Reported Past Drug Use History: Marijuana - Past Family History Mother Family Medical History: Congestive Heart Failure (CHF), Hypertension Father History Unknown: Yes Additional Family Medical History / Comment(s): Father at the age of 45 yrs d/t having had rheumatic fever as a child and heart valve disease. Medications and Allergies Home Medications Medication Instructions Recorded Confirmed Type Montelukast [Singulair] 10 mg PO HS 12/17/13 05/22/24 History Levothyroxine Sodium [Synthroid] 150 mcg PO DAILY 03/29/20 05/22/24 History Budesonide/Formoterol Fumarate 2 puff INHALATION RT-BID 06/12/21 05/22/24 History [Symbicort 160-4.5 Mcg Inhaler] Famotidine [Pepcid] 20 mg PO BID 09/03/21 05/22/24 History Tamsulosin [Flomax] 0.4 mg PO DAILY 10/26/21 05/22/24 History Ipratropium-Albuterol Nebulize 3 ml INHALATION RT-QID PRN 11/13/22 05/22/24 History [Duoneb 0.5 mg-3 mg/3 ml Soln] Albuterol Inhaler [Ventolin Hfa 2 puff INHALATION RT-QID PRN #1 11/17/22 05/22/24 Rx Inhaler] each Ibandronate Sodium [Boniva] 150 mg PO Q30D 05/03/23 05/22/24 History clonazePAM [KlonoPIN ODT] 0.25 mg PO HS 12/12/23 05/22/24 History OLANZapine [ZyPREXA] 15 mg PO HS 01/22/24 05/22/24 History Venlafaxine HCl ER [Effexor XR] 150 mg PO DAILY 03/18/24 05/22/24 History hydrOXYzine HCL [Atarax] 25 mg PO BID 03/18/24 05/22/24 History lamoTRIgine [LaMICtal] 100 mg PO BID 03/18/24 05/22/24 History Divalproex ER [Depakote ER] 500 mg PO HS #60 tab 03/28/24 05/22/24 Rx Pyridoxine [Vitamin B-6] 50 mg PO DAILY #30 tab 03/28/24 05/22/24 Rx QUEtiapine [SEROquel] 25 mg PO BID 30 Days #60 tab 04/13/24 05/22/24 Rx lisinopriL [Prinivil] 20 mg PO DAILY 04/21/24 05/22/24 History Metoprolol Tartrate [Lopressor] 25 mg PO BID 05/16/24 05/22/24 History Allergies Allergy/AdvReac Type Severity Reaction Status Date / Time codeine Allergy Unknown Verified 05/22/24 12:42 Childhood Penicillins Allergy Rash/Hives Verified 05/22/24 12:42 Sulfa (Sulfonamide Allergy Rash/Hives Verified 05/22/24 12:42 Antibiotics) Physical Exam Vitals: Vital Signs Temp Pulse Resp BP Pulse Ox 05/22/24 11:09 62 05/22/24 11:02 60 05/22/24 09:56 98.5 F 68 22 170/71 94 L Intake and Output 05/21/24 05/22/24 05/22/24 22:59 06:59 14:59 Other: Weight 70.307 kg PHYSICAL EXAMINATION: Patient is lying in the bed, appears to be in mild distress, awake alert and oriented but anxious... HEENT: Normocephalic. Neck is supple. Pupils reactive. Nostrils clear. Oral cavity is moist. Neck reveals no JVD, carotid bruits, or thyromegaly. CHEST EXAMINATION: Trachea is central. Symmetrical expansion. Lung flores clear to auscultation and percussion. CARDIAC: Normal S1, S2 with no gallops. No murmurs ABDOMEN: Soft. Bowel sounds present. No organomegaly. No abdominal bruits. Extremities: reveal no edema. No clubbing or cyanosis Neurologically awake, alert, oriented x3 with well-coordinated movements. No gross focal deficits noted Skin: No rash or skin lesions. Psychiatric: Coperative. Nonsuicidal, anxious. Musculoskeletal: No joint swelling or deformity. Normal range of motion. Results CBC & Chem 7: 05/22/24 10:46 05/22/24 19:57 Labs: Abnormal Lab Results - Last 24 Hours (Table) 05/22/24 05/22/24 05/22/24 Range/Units 10:46 10:46 12:32 Sodium 110 L* 112 L* (137-145) mmol/L Potassium 5.4 H 5.2 H (3.5-5.1) mmol/L Chloride 76 L 79 L (98-107) mmol/L Carbon Dioxide 32 H 33 H (22-30) mmol/L Creatinine 0.36 L 0.38 L (0.52-1.04) mg/dL Glucose 100 H (74-99) mg/dL Plasma Lactic Acid Joel <0.5 L (0.7-2.0) mmol/L Calcium 8.3 L (8.4-10.2) mg/dL Magnesium 1.3 L (1.6-2.3) mg/dL AST 41 H (14-36) U/L Total Protein 5.9 L (6.3-8.2) g/dL Thrombosis Risk Factor Assmnt - DVT/VTE Prophylaxis DVT/VTE Prophylaxis: Pharmacologic Prophylaxis ordered Assessment and Plan Assessment: Severe hyponatremia. Likely hypovolemic hypoosmolar hyponatremia. Sodium level 110 on admission Cramping pain across the upper chest and shoulders and bilateral upper extremities. Hypomagnesemia Chronic hypoxic respiratory failure secondary COPD and recent COVID-19 infection. On 3 L oxygen via nasal cannula Hypertension Anxiety/depression/bipolar disorder and panic disorder Currently everyday smoker Fibromyalgia Osteoarthritis History of PE Hypothyroidism Spinal stenosis and cervical degenerative disc disease History of bariatric surgery/gastric bypass Currently everyday smoker and Marijuana use disorder GI and DVT prophylaxis with heparin subcu and Plan: Patient will be continued on IV hydration with normal saline. Urine sodium, osmolality and serum osmolality was ordered. Follow-up sodium level closely. Replace magnesium. Follow-up procalcitonin level. Legionella urine antigen was also ordered. Patient was given a dose of IV ceftriaxone azithromycin in the ER. Continue with DuoNebs as needed and Symbicort. Continue with oxygen supplementation. Will hold Zyprexa, Seroquel and Effexor. Will continue Depakote and Lamictal. Critical care team and nephrology was consulted. Continue to follow closely. Prognosis is guarded. Time with Patient: Greater than 30
[2024-05-22] MEDS ORDERED: DESMOPRESSIN ACETATE 4 MCG/ML VIAL (MDV) IV ONE (23:34)
[2024-05-22] MEDS: DEXTROSE 5% IN WATER 1,000 ML IV ONE (23:45)
[2024-05-23] MEDS: DESMOPRESSIN ACETATE 4 MCG/ML VIAL (MDV) IV ONE (00:31)
[2024-05-23] MEDS: ACETAMINOPHEN TAB 325 MG TAB PO PRN (03:51)
[2024-05-23 04:33] LABS: African American GFR (CKD) >90 (>60 ml/min/1.73 sqM); Anion Gap -1 mmol/L; Blood Urea Nitrogen 4 mg/dL (7-17); Calcium 8.2 mg/dL (8.4-10.2); Carbon Dioxide 30 mmol/L (22-30); Chloride 87 mmol/L (98-107); Glucose 121 mg/dL (74-99); Non-African American GFR(CKD) >90 (>60 ml/min/1.73 sqM)
[2024-05-23 04:47] LABS: Magnesium 1.7 mg/dL (1.6-2.3); Potassium 4.7 mmol/L (3.5-5.1); Sodium 116 mmol/L (137-145)
[2024-05-23] MEDS ORDERED: Magnesium Replacement Protocol 1 EACH MISC MISCELLANE PRN (05:00)
[2024-05-23] MEDS: MAGNESIUM SULFATE-D5W PMX 1 GM in DEXTROSE/WATER 1 100ML.BAG IVPB ONE (05:42)
[2024-05-23 05:59] LABS: T4, Free (Free Thyroxine) 1.24 ng/dL (0.78-2.19)
[2024-05-23] MEDS: LEVOTHYROXINE 75 MCG TAB PO SCH (06:43)
[2024-05-23] MEDS: HYDROcodone/APAP 5-325MG 1 EACH TAB PO PRN (06:55)
[2024-05-23] MEDS: TAMSULOSIN 0.4 MG CAP.ER.24H PO SCH (08:31)
--- NOTE | 2024-05-23 10:07 | P.NPCON ---
History of Present Illness - Reason for Consult hyponatremia - History of Present Illness Reason for consultation: Hyponatremia History of present illness: Patient is a 69-year-old female seen in renal consultation for hyponatremia. Patient came to the hospital due to generalized weakness and chest discomfort across her chest and arms. She is currently in the ICU. She is resting in bed. Hemodynamically stable. She is on 3 L nasal cannula. Denies vomiting or diarrhea. States oral intake has been fair. She does admit to drinking 2 to 3 cans of pop in 2-3 bottles of water daily. She is also been drinking Powerade. Additionally she is maintained on Depakote and Effexor as part of her home me dications. She denies personal history of malignancy. Denies use of diuretics. Has been voiding. Denies gross hematuria or dysuria. Sodium level was 110 on admission and has been gradually improving. She did receive D5W as well as DDAVP last night to slow the correction of hyponatremia as well as urine output. Sodium level this morning at 8 AM was 117. Vital signs are stable. General: No acute distress. HEENT: Head exam is unremarkable. LUNGS: No audible rhonchi or wheezes. HEART: Rate and Rhythm are regular. ABDOMEN: Nontender. EXTREMITITES: No edema. Past Medical History Past Medical History: Asthma, Heart Failure, COPD, Fibromyalgia, GERD/Reflux, Hypertension, Osteoarthritis (OA), Pneumonia, Pulmonary Embolus (PE), Skin Disorder, Thyroid Disorder Additional Past Medical History / Comment(s): Spinal Stenosis, Cervical disc disease/stenosis, scoliosis, recently having numbness/tingling L side of face/neck, recently saw roll form operator for L hemidiaphragmatic elevation-pt states she was told this was probably genetic, recently bronchitis and past bronchitis, pt states recent med change (water pill) d/t electrolyte problem/kidney function being affected, pt states she has had pulmonary emboli, past bilateral lower extremity cellulitis, edema lower extremities, IBS, hemorrhoids, benign colon polyps, sinus problems, UTIs, bacteremia/sepsis, cardiac murmur, past L ankle and L wrist fractures. History of Any Multi-Drug Resistant Organisms: MRSA Date of last positivie culture/infection: 03/2024 MDRO Source:: Knee Past Surgical History: Bariatric Surgery, Section, Cholecystectomy, Hysterectomy, Tonsillectomy Additional Past Surgical History / Comment(s): EGD, colonoscopies, gastric bypass, surgery for deviated septum, left cataract removal (having laser procedure on that eye 11/24/23) Past Anesthesia/Blood Transfusion Reactions: Previous Problems w/ Anesthesia Additional Past Anesthesia/Blood Transfusion Reaction / Comment(s): itching after hysterectomy, some kind of breathing problem after gastric bypass-not sure what happened Past Psychological History: Anxiety, Bipolar, Depression, Panic Disorder Additional Psychological History / Comment(s): . Smoking Status: Current every day smoker Past Alcohol Use History: None Reported Additional Past Alcohol Use History / Comment(s): Pt started smoking in 1986 and quit when she went into [facility] 08/2021, started again after discharge from [facility] 05/2022 Past Drug Use History: Marijuana Additional Drug Use History / Comment(s): occassional cannabis use per pt - Past Family History Mother Family Medical History: Congestive Heart Failure (CHF), Hypertension Father History Unknown: Yes Additional Family Medical History / Comment(s): Father at the age of 45 yrs d/t having had rheumatic fever as a child and heart valve disease. Medications and Allergies Home Medications Medication Instructions Recorded Confirmed Type Montelukast [Singulair] 10 mg PO HS 12/17/13 05/22/24 History Levothyroxine Sodium [Synthroid] 150 mcg PO DAILY 03/29/20 05/22/24 History Budesonide/Formoterol Fumarate 2 puff INHALATION RT-BID 06/12/21 05/22/24 History [Symbicort 160-4.5 Mcg Inhaler] Famotidine [Pepcid] 20 mg PO BID 09/03/21 05/22/24 History Tamsulosin [Flomax] 0.4 mg PO DAILY 10/26/21 05/22/24 History Ipratropium-Albuterol Nebulize 3 ml INHALATION RT-QID PRN 11/13/22 05/22/24 History [Duoneb 0.5 mg-3 mg/3 ml Soln] Albuterol Inhaler [Ventolin Hfa 2 puff INHALATION RT-QID PRN #1 11/17/22 05/22/24 Rx Inhaler] each Ibandronate Sodium [Boniva] 150 mg PO Q30D 05/03/23 05/22/24 History clonazePAM [KlonoPIN ODT] 0.25 mg PO HS 12/12/23 05/22/24 History OLANZapine [ZyPREXA] 15 mg PO HS 01/22/24 05/22/24 History Venlafaxine HCl ER [Effexor XR] 150 mg PO DAILY 03/18/24 05/22/24 History hydrOXYzine HCL [Atarax] 25 mg PO BID 03/18/24 05/22/24 History lamoTRIgine [LaMICtal] 100 mg PO BID 03/18/24 05/22/24 History Divalproex ER [Depakote ER] 500 mg PO HS #60 tab 03/28/24 05/22/24 Rx Pyridoxine [Vitamin B-6] 50 mg PO DAILY #30 tab 03/28/24 05/22/24 Rx QUEtiapine [SEROquel] 25 mg PO BID 30 Days #60 tab 04/13/24 05/22/24 Rx lisinopriL [Prinivil] 20 mg PO DAILY 04/21/24 05/22/24 History Metoprolol Tartrate [Lopressor] 25 mg PO BID 05/16/24 05/22/24 History Allergies Allergy/AdvReac Type Severity Reaction Status Date / Time codeine Allergy Unknown Verified 05/22/24 12:42 Childhood Penicillins Allergy Rash/Hives Verified 05/22/24 12:42 Sulfa (Sulfonamide Allergy Rash/Hives Verified 05/22/24 12:42 Antibiotics) Physical Exam Vitals: Vital Signs Temp Pulse Resp BP Pulse Ox 05/23/24 09:00 76 05/23/24 08:54 98 05/23/24 08:52 74 05/23/24 08:00 98.3 F 75 12 151/68 95 05/23/24 07:00 71 14 135/66 95 05/23/24 06:00 68 16 117/53 99 05/23/24 05:00 67 14 156/74 97 05/23/24 04:00 97.8 F 73 16 119/52 95 05/23/24 03:00 69 13 152/57 95 05/23/24 02:00 70 9 L 163/58 98 05/23/24 01:00 68 10 L 111/51 98 05/23/24 00:00 97.7 F 66 11 L 142/57 98 05/22/24 23:09 68 17 142/57 97 05/22/24 23:00 66 7 L 142/58 99 05/22/24 22:00 65 11 L 150/64 98 05/22/24 21:10 65 05/22/24 21:00 64 10 L 163/64 98 05/22/24 20:57 66 05/22/24 20:00 97.9 F 59 L 10 L 115/55 99 05/22/24 19:00 60 7 L 121/54 99 05/22/24 18:00 98.0 F 59 L 14 127/57 100 05/22/24 17:00 62 14 176/89 95 05/22/24 16:20 63 18 176/89 99 05/22/24 16:00 65 14 147/76 98 05/22/24 15:53 61 05/22/24 15:43 60 05/22/24 15:00 57 L 16 141/63 96 05/22/24 14:00 59 L 14 126/70 96 05/22/24 13:00 58 L 16 147/77 96 05/22/24 11:09 62 05/22/24 11:02 60 05/22/24 11:00 60 14 156/76 95 Intake and Output 05/22/24 05/23/24 05/23/24 22:59 06:59 14:59 Intake Total 425 1225 Output Total 2525 1245 30 Balance Intake: IV 425 1225 Dextrose 5% in Water 1, 1000 000 ml @ 200 mls/hr IV . Q5H [facility] Rx#:[id number] Magnesium Sulfate-D5w Pmx 100 1 gm In Dextrose/Water 1 100ml.bag @ 100 mls/hr IVPB Q1H [facility] Rx#: [id number] Magnesium Sulfate-D5w Pmx 100 1 gm In Dextrose/Water 1 100ml.bag @ 100 mls/hr IVPB Q1H [facility] Rx#: [id number] Sodium Chloride 0.45% 1, 250 125 000 ml @ 125 mls/hr IV . Q8H [facility] Rx#:[id number] Sodium Chloride 0.9% 1, 75 000 ml @ 75 mls/hr IV . [id number] [facility] Rx#:[id number] Output: Urine 2525 1245 30 Other: Voiding Method Indwelling Catheter Indwelling Catheter Indwelling Catheter Weight 75 kg Results - Lab Results Most recent lab results Calcium 8.2 mg/dL (8.4-10.2) L 05/23/24 04:00 Magnesium 1.7 mg/dL (1.6-2.3) 05/23/24 04:00 05/22/24 10:46 05/23/24 07:52 Assessment and Plan Plan: Assessment: 1. Hypovolemic hyponatremia with component of poor solute intake as well as SIADH from medications. Sodium level 110 on admission and was 117 this morning. Status post D5W and IV DDAVP this admission. TSH 5.2 with normal free T4. Urine sodium 30 and urine osmolality 132. 2. History of COPD. 3. Benign hypertension. 4. Hypomagnesemia from poor intake. Being replaced. Plan: Currently off IV fluids. Repeat sodium level at 11 AM. Will initiate 3% if sodium level not trending up. Goal rate of sodium correction 6-8 mEq per 24 hours. Thank you for the consultation. I will continue to follow the patient with you during her hospital stay.
--- NOTE | 2024-05-23 11:17 | P.CONS ---
History of Present Illness - Reason for Consult Consult date: 05/23/24 wound care - History of Present Illness This is a 69-year-old patient being seen in the ICU for nonhealing ulceration to the right lower extremity lateral aspect. Patient has been following in the wound care center for the last few weeks for nonhealing ulceration. Patient had had an injury was 3 resulting in the ulceration. At this time patient has been utilizing collagen with positive results. Original cause of wound was Trauma. The date acquired was: 03/31/2024. The wound has been in treatment 1 weeks. The wound is currently classified as a Full Thickness Without Exposed Support Structures wound with etiology of Trauma, Other and is located on the Right,Medial,Anterior Lower Leg. The wound measures 5.3cm length x 4cm width x 0.1cm depth; 16.65cm^2 area and 1.665cm^3 volume. There is Fat Layer (Subcutaneous Tissue) exposed. There is no tunneling or undermining noted. There is a medium amount of serosanguineous drainage noted. The wound margin is distinct with the outline attached to the wound base. There is large (67-100%) red, pink granulation within the wound bed. There is a small (1-33%) amount of necrotic tissue within the wound bed including Adherent Slough. The periwound skin appearance exhibited: Scarring, Ecchymosis, Erythema. The periwound skin appearance did not exhibit: Callus, Crepitus, Excoriation, Induration, Rash, Dry/Scaly, Maceration, Atroph[place], Cyanosis, Hemosiderin Staining, Mottled, Pallor, Rubor. The surrounding wound skin color is noted with erythema which is circumferential. Periwound temperature was noted as No Abnormality. Review Of Systems: Constitutional: No fever, no chills, no night sweats. No weight change. No weakness, fatigue or lethargy. No daytime sleepiness. Integumentary:reports wounds, no lesions. No rash or pruritus. No unusual bruising. No change in hair or nails. Physical exam: General Appearance: Alert, cooperative, no distress, appears stated age. Skin: See HPI all other Skin color, texture, tugor normal, no rashes or lesions. Neurologic: Alert oriented x3 Assessment: 1. Nonhealing ulceration of right part of right lower extremity with fat layer exposure Plan: 1. Apply collagen, saline moist gauze, bordered foam. Wrap with Gen wrap for compression. Thank you for the consultation any questions please contact the wound care center DNP note has been reviewed and discussed with Dr. Méndez and the impression and plan of care has been directed as dictated. Past Medical History Past Medical History: Asthma, Heart Failure, COPD, Fibromyalgia, GERD/Reflux, Hypertension, Osteoarthritis (OA), Pneumonia, Pulmonary Embolus (PE), Skin Disorder, Thyroid Disorder Additional Past Medical History / Comment(s): Spinal Stenosis, Cervical disc disease/stenosis, scoliosis, recently having numbness/tingling L side of face/neck, recently saw deck supervisor for L hemidiaphragmatic elevation-pt states she was told this was probably genetic, recently bronchitis and past bronchitis, pt states recent med change (water pill) d/t electrolyte problem/ki dney function being affected, pt states she has had pulmonary emboli, past bilateral lower extremity cellulitis, edema lower extremities, IBS, hemorrhoids, benign colon polyps, sinus problems, UTIs, bacteremia/sepsis, cardiac murmur, past L ankle and L wrist fractures. History of Any Multi-Drug Resistant Organisms: MRSA Year Discovered:: 03/2024 MDRO Source:: Knee Past Surgical History: Bariatric Surgery, Section, Cholecystectomy, Hysterectomy, Tonsillectomy Additional Past Surgical History / Comment(s): EGD, colonoscopies, gastric bypass, surgery for deviated septum, left cataract removal (having laser procedure on that eye 11/24/23) Past Anesthesia/Blood Transfusion Reactions: Previous Problems w/ Anesthesia Additional Past Anesthesia/Blood Transfusion Reaction / Comm: itching after hysterectomy, some kind of breathing problem after gastric bypass-not sure what happened Past Psychological History: Anxiety, Bipolar, Depression, Panic Disorder Additional Psychological History / Comment(s): . Smoking Status: Current every day smoker Past Alcohol Use History: None Reported Additional Past Alcohol Use History / Comment(s): Pt started smoking in 1986 and quit when she went into [facility] 08/2021, started again after discharge from [facility] 05/2022 Past Drug Use History: Marijuana Additional Drug Use History / Comment(s): occassional cannabis use per pt - Past Family History Mother Family Medical History: Congestive Heart Failure (CHF), Hypertension Father History Unknown: Yes Additional Family Medical History / Comment(s): Father at the age of 45 yrs d/t having had rheumatic fever as a child and heart valve disease. Medications and Allergies Home Medications Medication Instructions Recorded Confirmed Type Montelukast [Singulair] 10 mg PO HS 12/17/13 05/22/24 History Levothyroxine Sodium [Synthroid] 150 mcg PO DAILY 03/29/20 05/22/24 History Budesonide/Formoterol Fumarate 2 puff INHALATION RT-BID 06/12/21 05/22/24 History [Symbicort 160-4.5 Mcg Inhaler] Famotidine [Pepcid] 20 mg PO BID 09/03/21 05/22/24 History Tamsulosin [Flomax] 0.4 mg PO DAILY 10/26/21 05/22/24 History Ipratropium-Albuterol Nebulize 3 ml INHALATION RT-QID PRN 11/13/22 05/22/24 History [Duoneb 0.5 mg-3 mg/3 ml Soln] Albuterol Inhaler [Ventolin Hfa 2 puff INHALATION RT-QID PRN #1 11/17/22 05/22/24 Rx Inhaler] each Ibandronate Sodium [Boniva] 150 mg PO Q30D 05/03/23 05/22/24 History clonazePAM [KlonoPIN ODT] 0.25 mg PO HS 12/12/23 05/22/24 History OLANZapine [ZyPREXA] 15 mg PO HS 01/22/24 05/22/24 History Venlafaxine HCl ER [Effexor XR] 150 mg PO DAILY 03/18/24 05/22/24 History hydrOXYzine HCL [Atarax] 25 mg PO BID 03/18/24 05/22/24 History lamoTRIgine [LaMICtal] 100 mg PO BID 03/18/24 05/22/24 History Divalproex ER [Depakote ER] 500 mg PO HS #60 tab 03/28/24 05/22/24 Rx Pyridoxine [Vitamin B-6] 50 mg PO DAILY #30 tab 03/28/24 05/22/24 Rx QUEtiapine [SEROquel] 25 mg PO BID 30 Days #60 tab 04/13/24 05/22/24 Rx lisinopriL [Prinivil] 20 mg PO DAILY 04/21/24 05/22/24 History Metoprolol Tartrate [Lopressor] 25 mg PO BID 05/16/24 05/22/24 History Allergies Allergy/AdvReac Type Severity Reaction Status Date / Time codeine Allergy Unknown Verified 05/22/24 12:42 Childhood Penicillins Allergy Rash/Hives Verified 05/22/24 12:42 Sulfa (Sulfonamide Allergy Rash/Hives Verified 05/22/24 12:42 Antibiotics) Physical Exam Vitals: Vital Signs Temp Pulse Resp BP Pulse Ox 05/23/24 11:00 78 11 L 129/60 94 L 05/23/24 10:00 76 12 143/64 94 L 05/23/24 09:00 80 10 L 147/60 98 05/23/24 08:54 98 05/23/24 08:52 74 05/23/24 08:00 98.3 F 75 12 151/68 95 05/23/24 07:00 71 14 135/66 95 05/23/24 06:00 68 16 117/53 99 05/23/24 05:00 67 14 156/74 97 05/23/24 04:00 97.8 F 73 16 119/52 95 05/23/24 03:00 69 13 152/57 95 05/23/24 02:00 70 9 L 163/58 98 05/23/24 01:00 68 10 L 111/51 98 05/23/24 00:00 97.7 F 66 11 L 142/57 98 05/22/24 23:09 68 17 142/57 97 05/22/24 23:00 66 7 L 142/58 99 05/22/24 22:00 65 11 L 150/64 98 05/22/24 21:10 65 05/22/24 21:00 64 10 L 163/64 98 05/22/24 20:57 66 05/22/24 20:00 97.9 F 59 L 10 L 115/55 99 05/22/24 19:00 60 7 L 121/54 99 05/22/24 18:00 98.0 F 59 L 14 127/57 100 05/22/24 17:00 62 14 176/89 95 05/22/24 16:20 63 18 176/89 99 05/22/24 16:00 65 14 147/76 98 05/22/24 15:53 61 05/22/24 15:43 60 05/22/24 15:00 57 L 16 141/63 96 05/22/24 14:00 59 L 14 126/70 96 05/22/24 13:00 58 L 16 147/77 96 Intake and Output 05/22/24 05/23/24 05/23/24 22:59 06:59 14:59 Intake Total 425 1225 200 Output Total 2525 1245 135 Balance -2100 65 Intake: IV 425 1225 Dextrose 5% in Water 1, 1000 000 ml @ 200 mls/hr IV . Q5H ONE Rx#:[id number] Magnesium Sulfate-D5w Pmx 100 1 gm In Dextrose/Water 1 100ml.bag @ 100 mls/hr IVPB Q1H [facility] Rx#: [id number] Magnesium Sulfate-D5w Pmx 100 1 gm In Dextrose/Water 1 100ml.bag @ 100 mls/hr IVPB Q1H [facility] Rx#: [id number] Sodium Chloride 0.45% 1, 250 125 000 ml @ 125 mls/hr IV . Q8H [facility] Rx#:[id number] Sodium Chloride 0.9% 1, 75 000 ml @ 75 mls/hr IV . [id number] [facility] Rx#:[id number] Oral 200 Output: Urine 2525 1245 135 Other: Voiding Method Indwelling Catheter Indwelling Catheter Indwelling Catheter Weight 75 kg Results CBC & Chem 7: 05/22/24 10:46 05/23/24 07:52 Labs: Abnormal Lab Results - Last 24 Hours (Table) 05/22/24 05/22/24 05/22/24 Range/Units 10:46 10:46 12:32 Sodium 110 L* 112 L* (137-145) mmol/L Potassium 5.4 H 5.2 H (3.5-5.1) mmol/L Chloride 76 L 79 L (98-107) mmol/L Carbon Dioxide 32 H 33 H (22-30) mmol/L BUN (7-17) mg/dL Creatinine 0.36 L 0.38 L (0.52-1.04) mg/dL Glucose 100 H (74-99) mg/dL POC Glucose (mg/dL) (70-110) mg/dL Osmolality (275-295) mOsm/kg Plasma Lactic Acid Joel <0.5 L (0.7-2.0) mmol/L Calcium 8.3 L (8.4-10.2) mg/dL Magnesium 1.3 L (1.6-2.3) mg/dL AST 41 H (14-36) U/L ALT (4-34) U/L Alkaline Phosphatase (38-126) U/L Total Protein 5.9 L (6.3-8.2) g/dL Albumin (3.5-5.0) g/dL TSH (0.465-4.680) mIU/L Urine Appearance (Clear) Ur Leukocyte Esterase (Negative) Urine WBC (0-5) /hpf Ur Squamous Epith Cells (0-4) /hpf Urine Bacteria (None) /hpf Urine Mucus (None) /hpf Urine Osmolality (400-1100) mOsm/kg Ur Random Sodium (40-220) mmol/L 05/22/24 05/22/24 05/22/24 Range/Units 14:49 14:49 14:49 Sodium (137-145) mmol/L Potassium (3.5-5.1) mmol/L Chloride (98-107) mmol/L Carbon Dioxide (22-30) mmol/L BUN (7-17) mg/dL Creatinine (0.52-1.04) mg/dL Glucose (74-99) mg/dL POC Glucose (mg/dL) (70-110) mg/dL Osmolality 240 A* (275-295) mOsm/kg Plasma Lactic Acid Joel (0.7-2.0) mmol/L Calcium (8.4-10.2) mg/dL Magnesium (1.6-2.3) mg/dL AST (14-36) U/L ALT (4-34) U/L Alkaline Phosphatase (38-126) U/L Total Protein (6.3-8.2) g/dL Albumin (3.5-5.0) g/dL TSH (0.465-4.680) mIU/L Urine Appearance Cloudy H (Clear) Ur Leukocyte Esterase Large H (Negative) Urine WBC 23 H (0-5) /hpf Ur Squamous Epith Cells 49 H (0-4) /hpf Urine Bacteria Occasional H (None) /hpf Urine Mucus Rare H (None) /hpf Urine Osmolality 132 L (400-1100) mOsm/kg Ur Random Sodium (40-220) mmol/L 05/22/24 05/22/24 05/22/24 Range/Units 14:49 14:49 16:40 Sodium 112 L* 115 L* (137-145) mmol/L Potassium (3.5-5.1) mmol/L Chloride 80 L (98-107) mmol/L Carbon Dioxide 31 H (22-30) mmol/L BUN (7-17) mg/dL Creatinine 0.36 L (0.52-1.04) mg/dL Glucose 110 H (74-99) mg/dL POC Glucose (mg/dL) (70-110) mg/dL Osmolality (275-295) mOsm/kg Plasma Lactic Acid Joel (0.7-2.0) mmol/L Calcium (8.4-10.2) mg/dL Magnesium (1.6-2.3) mg/dL AST 284 H (14-36) U/L ALT 108 H (4-34) U/L Alkaline Phosphatase 132 H (38-126) U/L Total Protein 5.6 L (6.3-8.2) g/dL Albumin 3.4 L (3.5-5.0) g/dL TSH (0.465-4.680) mIU/L Urine Appearance (Clear) Ur Leukocyte Esterase (Negative) Urine WBC (0-5) /hpf Ur Squamous Epith Cells (0-4) /hpf Urine Bacteria (None) /hpf Urine Mucus (None) /hpf Urine Osmolality (400-1100) mOsm/kg Ur Random Sodium 30 L (40-220) mmol/L 05/22/24 05/22/24 05/22/24 Range/Units 17:38 19:57 22:44 Sodium 116 L* 119 L* (137-145) mmol/L Potassium (3.5-5.1) mmol/L Chloride (98-107) mmol/L Carbon Dioxide (22-30) mmol/L BUN (7-17) mg/dL Creatinine (0.52-1.04) mg/dL Glucose (74-99) mg/dL POC Glucose (mg/dL) 111 H (70-110) mg/dL Osmolality (275-295) mOsm/kg Plasma Lactic Acid Joel (0.7-2.0) mmol/L Calcium (8.4-10.2) mg/dL Magnesium (1.6-2.3) mg/dL AST (14-36) U/L ALT (4-34) U/L Alkaline Phosphatase (38-126) U/L Total Protein (6.3-8.2) g/dL Albumin (3.5-5.0) g/dL TSH (0.465-4.680) mIU/L Urine Appearance (Clear) Ur Leukocyte Esterase (Negative) Urine WBC (0-5) /hpf Ur Squamous Epith Cells (0-4) /hpf Urine Bacteria (None) /hpf Urine Mucus (None) /hpf Urine Osmolality (400-1100) mOsm/kg Ur Random Sodium (40-220) mmol/L 05/23/24 05/23/24 05/23/24 Range/Units 00:15 02:40 04:00 Sodium 119 L* 117 L* 116 L* (137-145) mmol/L Potassium (3.5-5.1) mmol/L Chloride 87 L (98-107) mmol/L Carbon Dioxide (22-30) mmol/L BUN 4 L (7-17) mg/dL Creatinine 0.28 L (0.52-1.04) mg/dL Glucose 121 H (74-99) mg/dL POC Glucose (mg/dL) (70-110) mg/dL Osmolality (275-295) mOsm/kg Plasma Lactic Acid Joel (0.7-2.0) mmol/L Calcium 8.2 L (8.4-10.2) mg/dL Magnesium (1.6-2.3) mg/dL AST (14-36) U/L ALT (4-34) U/L Alkaline Phosphatase (38-126) U/L Total Protein (6.3-8.2) g/dL Albumin (3.5-5.0) g/dL TSH 5.260 H (0.465-4.680) mIU/L Urine Appearance (Clear) Ur Leukocyte Esterase (Negative) Urine WBC (0-5) /hpf Ur Squamous Epith Cells (0-4) /hpf Urine Bacteria (None) /hpf Urine Mucus (None) /hpf Urine Osmolality (400-1100) mOsm/kg Ur Random Sodium (40-220) mmol/L 05/23/24 Range/Units 07:52 Sodium 117 L* (137-145) mmol/L Potassium (3.5-5.1) mmol/L Chloride (98-107) mmol/L Carbon Dioxide (22-30) mmol/L BUN (7-17) mg/dL Creatinine (0.52-1.04) mg/dL Glucose (74-99) mg/dL POC Glucose (mg/dL) (70-110) mg/dL Osmolality (275-295) mOsm/kg Plasma Lactic Acid Joel (0.7-2.0) mmol/L Calcium (8.4-10.2) mg/dL Magnesium (1.6-2.3) mg/dL AST (14-36) U/L ALT (4-34) U/L Alkaline Phosphatase (38-126) U/L Total Protein (6.3-8.2) g/dL Albumin (3.5-5.0) g/dL TSH (0.465-4.680) mIU/L Urine Appearance (Clear) Ur Leukocyte Esterase (Negative) Urine WBC (0-5) /hpf Ur Squamous Epith Cells (0-4) /hpf Urine Bacteria (None) /hpf Urine Mucus (None) /hpf Urine Osmolality (400-1100) mOsm/kg Ur Random Sodium (40-220) mmol/L Assessment and Plan (1) Non-pressure ulcer of right lower extremity with fat layer exposed Current Visit: Yes Status: Acute Code(s): L97.912 - NON-PRS CHR ULC UNSP PRT OF R LOW LEG W FAT LAYER EXPOSED SNOMED Code(s): 88544511
--- NOTE | 2024-05-23 12:40 | P.PN ---
Subjective Progress Note Date: 05/23/24 This is a 69-year-old female patient is coming into the intensive care unit for severe hyponatremia. The patient's sodium level was 110 and she was feeling extremely weak and she was also complaining of chest discomfort/pain across her entire upper and lower chest and both arms. Based on that, she came into the emergency department. She did complain of shortness of breath which is essentially chronic. She is known to have COPD. Denies having any nausea or emesis. No reported fever. No altered mentation and she continues to communicate. Her sodium level in the emergency department was 110 with a potassium level of 5.4, bicarb of 32, BUN of 8 with a creatinine of 0.3. Calcium level was 8.8, mag was 1.3, lactic acid level was less than 0.5, bilirubin was 0.4, LFTs were normal and proBNP level was 2000. UA showed leukocyte esterase, 23 WBCs, 1 RBC. The white cell count was at 10.3 with a hemoglobin 12.7 and a platelet count of 275. The patient's chest x-ray at the time of admission showed bilateral small effusions, consistent with some CHF and it showed also mild pulm vessel congestion. It showed smaller lung volumes. EKG showed a normal sinus rhythm with LVH. Patient was seen in the emergency, nephrology has been consulted, based on that, the patient was started on normal saline normal saline at rate of 75 cc an hour. Her most recent sodium level came at 115. Urine output is adequate and the patient has a Husain catheter in place. She has been maintained on various medication outpatient basis including Seroquel, Effexor and and Zyprexa. Urine studies are still pending for now. The patient is known to have multiple hospitalizations in the past. She is known to have COPD, CHF, fibromyalgia, hypertension, hypothyroidism, and chronic anxiety. She has not also previous hospitalization related to COVID-19 infection with secondary hypoxic respiratory failure and the patient was in the hospital for COVID-19 related complications approximately a month ago. She was discharged from the hospital on 04/24/2024 with normal sodium level. She also has previous history of right leg wound that required debridement and was positive for MRSA and Pseudomonas. On 05/23/2024, patient is being seen for a follow-up. The patient is calm and comfortable. The patient was showing improvement in her sodium level which turned out to be as high as 119 from a baseline of 110. The patient was given DDAVP and IV fluids have been discontinued. No new complaints. Sodium level is at 116 in follow-up. Chloride is 87. BUN is 40 mg of 0.2. The urine osmolality was 132 with a urine sodium level of 30. Obviously, this is not consistent with SIADH. The white cell count is at 10.3 with a hemoglobin 4.7 and a platelet count of 275. Will consult psychiatry to make adjustments on the patient psychiatric medications. She remains hemodynamically stable. Objective - Vital Signs Vital signs: Vital Signs Temp 98.3 F 05/23/24 08:00 Pulse 76 05/23/24 09:00 Resp 12 05/23/24 08:00 BP 151/68 05/23/24 08:00 Pulse Ox 98 05/23/24 08:54 FiO2 Intake & Output 05/22/24 05/23/24 05/23/24 18:59 06:59 18:59 Intake Total 175 1475 Output Total 350 3420 30 Balance -175 -1945 -30 Weight 70.307 kg 75 kg Intake: IV 175 1475 Dextrose 5% in Water 1, 1000 000 ml @ 200 mls/hr IV . Q5H [facility] Rx#:[id number] Magnesium Sulfate-D5w Pmx 100 1 gm In Dextrose/Water 1 100ml.bag @ 100 mls/hr IVPB Q1H [facility] Rx#: [id number] Magnesium Sulfate-D5w Pmx 100 1 gm In Dextrose/Water 1 100ml.bag @ 100 mls/hr IVPB Q1H [facility] Rx#: [id number] Sodium Chloride 0.45% 1, 375 000 ml @ 125 mls/hr IV . Q8H [facility] Rx#:[id number] Sodium Chloride 0.9% 1, 75 0 000 ml @ 75 mls/hr IV . [id number] [facility] Rx#:[id number] Output: Urine 350 3420 30 Other: Voiding Method Indwelling Catheter Indwelling Catheter - Exam GENERAL EXAM: Alert, anxious 69-year-old female, on 3 L nasal cannula, fairly comfortable in no apparent distress. HEAD: Normocephalic. EYES: Normal reaction of pupils, equal size. NOSE: Clear with pink turbinates. THROAT: No erythema or exudates. NECK: No masses, no JVD. CHEST: No chest wall deformity. LUNGS: Equal air entry with bilateral scattered rhonchi. CVS: S1 and S2 normal with no audible murmur, regular rhythm. ABDOMEN: No hepatosplenomegaly, normal bowel sounds, no guarding or rigidity. SPINE: No scoliosis or deformity SKIN: No rashes, healing wound in the right hogan, no active drainage or abscess CENTRAL NERVOUS SYSTEM: No focal deficits, tone is normal in all 4 extremities. EXTREMITIES: There is no peripheral edema. No clubbing, no cyanosis. Peripheral pulses are intact. - Labs CBC & Chem 7: 05/22/24 10:46 05/23/24 11:01 Labs: Abnormal Lab Results - Last 24 Hours (Table) 05/22/24 05/22/24 05/22/24 Range/Units 10:46 10:46 12:32 Sodium 110 L* 112 L* (137-145) mmol/L Potassium 5.4 H 5.2 H (3.5-5.1) mmol/L Chloride 76 L 79 L (98-107) mmol/L Carbon Dioxide 32 H 33 H (22-30) mmol/L BUN (7-17) mg/dL Creatinine 0.36 L 0.38 L (0.52-1.04) mg/dL Glucose 100 H (74-99) mg/dL POC Glucose (mg/dL) (70-110) mg/dL Osmolality (275-295) mOsm/kg Plasma Lactic Acid Joel <0.5 L (0.7-2.0) mmol/L Calcium 8.3 L (8.4-10.2) mg/dL Magnesium 1.3 L (1.6-2.3) mg/dL AST 41 H (14-36) U/L ALT (4-34) U/L Alkaline Phosphatase (38-126) U/L Total Protein 5.9 L (6.3-8.2) g/dL Albumin (3.5-5.0) g/dL TSH (0.465-4.680) mIU/L Urine Appearance (Clear) Ur Leukocyte Esterase (Negative) Urine WBC (0-5) /hpf Ur Squamous Epith Cells (0-4) /hpf Urine Bacteria (None) /hpf Urine Mucus (None) /hpf Urine Osmolality (400-1100) mOsm/kg Ur Random Sodium (40-220) mmol/L 05/22/24 05/22/24 05/22/24 Range/Units 14:49 14:49 14:49 Sodium (137-145) mmol/L Potassium (3.5-5.1) mmol/L Chloride (98-107) mmol/L Carbon Dioxide (22-30) mmol/L BUN (7-17) mg/dL Creatinine (0.52-1.04) mg/dL Glucose (74-99) mg/dL POC Glucose (mg/dL) (70-110) mg/dL Osmolality 240 A* (275-295) mOsm/kg Plasma Lactic Acid Joel (0.7-2.0) mmol/L Calcium (8.4-10.2) mg/dL Magnesium (1.6-2.3) mg/dL AST (14-36) U/L ALT (4-34) U/L Alkaline Phosphatase (38-126) U/L Total Protein (6.3-8.2) g/dL Albumin (3.5-5.0) g/dL TSH (0.465-4.680) mIU/L Urine Appearance Cloudy H (Clear) Ur Leukocyte Esterase Large H (Negative) Urine WBC 23 H (0-5) /hpf Ur Squamous Epith Cells 49 H (0-4) /hpf Urine Bacteria Occasional H (None) /hpf Urine Mucus Rare H (None) /hpf Urine Osmolality 132 L (400-1100) mOsm/kg Ur Random Sodium (40-220) mmol/L 05/22/24 05/22/24 05/22/24 Range/Units 14:49 14:49 16:40 Sodium 112 L* 115 L* (137-145) mmol/L Potassium (3.5-5.1) mmol/L Chloride 80 L (98-107) mmol/L Carbon Dioxide 31 H (22-30) mmol/L BUN (7-17) mg/dL Creatinine 0.36 L (0.52-1.04) mg/dL Glucose 110 H (74-99) mg/dL POC Glucose (mg/dL) (70-110) mg/dL Osmolality (275-295) mOsm/kg Plasma Lactic Acid Joel (0.7-2.0) mmol/L Calcium (8.4-10.2) mg/dL Magnesium (1.6-2.3) mg/dL AST 284 H (14-36) U/L ALT 108 H (4-34) U/L Alkaline Phosphatase 132 H (38-126) U/L Total Protein 5.6 L (6.3-8.2) g/dL Albumin 3.4 L (3.5-5.0) g/dL TSH (0.465-4.680) mIU/L Urine Appearance (Clear) Ur Leukocyte Esterase (Negative) Urine WBC (0-5) /hpf Ur Squamous Epith Cells (0-4) /hpf Urine Bacteria (None) /hpf Urine Mucus (None) /hpf Urine Osmolality (400-1100) mOsm/kg Ur Random Sodium 30 L (40-220) mmol/L 05/22/24 05/22/24 05/22/24 Range/Units 17:38 19:57 22:44 Sodium 116 L* 119 L* (137-145) mmol/L Potassium (3.5-5.1) mmol/L Chloride (98-107) mmol/L Carbon Dioxide (22-30) mmol/L BUN (7-17) mg/dL Creatinine (0.52-1.04) mg/dL Glucose (74-99) mg/dL POC Glucose (mg/dL) 111 H (70-110) mg/dL Osmolality (275-295) mOsm/kg Plasma Lactic Acid Joel (0.7-2.0) mmol/L Calcium (8.4-10.2) mg/dL Magnesium (1.6-2.3) mg/dL AST (14-36) U/L ALT (4-34) U/L Alkaline Phosphatase (38-126) U/L Total Protein (6.3-8.2) g/dL Albumin (3.5-5.0) g/dL TSH (0.465-4.680) mIU/L Urine Appearance (Clear) Ur Leukocyte Esterase (Negative) Urine WBC (0-5) /hpf Ur Squamous Epith Cells (0-4) /hpf Urine Bacteria (None) /hpf Urine Mucus (None) /hpf Urine Osmolality (400-1100) mOsm/kg Ur Random Sodium (40-220) mmol/L 05/23/24 05/23/24 05/23/24 Range/Units 00:15 02:40 04:00 Sodium 119 L* 117 L* 116 L* (137-145) mmol/L Potassium (3.5-5.1) mmol/L Chloride 87 L (98-107) mmol/L Carbon Dioxide (22-30) mmol/L BUN 4 L (7-17) mg/dL Creatinine 0.28 L (0.52-1.04) mg/dL Glucose 121 H (74-99) mg/dL POC Glucose (mg/dL) (70-110) mg/dL Osmolality (275-295) mOsm/kg Plasma Lactic Acid Joel (0.7-2.0) mmol/L Calcium 8.2 L (8.4-10.2) mg/dL Magnesium (1.6-2.3) mg/dL AST (14-36) U/L ALT (4-34) U/L Alkaline Phosphatase (38-126) U/L Total Protein (6.3-8.2) g/dL Albumin (3.5-5.0) g/dL TSH 5.260 H (0.465-4.680) mIU/L Urine Appearance (Clear) Ur Leukocyte Esterase (Negative) Urine WBC (0-5) /hpf Ur Squamous Epith Cells (0-4) /hpf Urine Bacteria (None) /hpf Urine Mucus (None) /hpf Urine Osmolality (400-1100) mOsm/kg Ur Random Sodium (40-220) mmol/L 05/23/24 Range/Units 07:52 Sodium 117 L* (137-145) mmol/L Potassium (3.5-5.1) mmol/L Chloride (98-107) mmol/L Carbon Dioxide (22-30) mmol/L BUN (7-17) mg/dL Creatinine (0.52-1.04) mg/dL Glucose (74-99) mg/dL POC Glucose (mg/dL) (70-110) mg/dL Osmolality (275-295) mOsm/kg Plasma Lactic Acid Joel (0.7-2.0) mmol/L Calcium (8.4-10.2) mg/dL Magnesium (1.6-2.3) mg/dL AST (14-36) U/L ALT (4-34) U/L Alkaline Phosphatase (38-126) U/L Total Protein (6.3-8.2) g/dL Albumin (3.5-5.0) g/dL TSH (0.465-4.680) mIU/L Urine Appearance (Clear) Ur Leukocyte Esterase (Negative) Urine WBC (0-5) /hpf Ur Squamous Epith Cells (0-4) /hpf Urine Bacteria (None) /hpf Urine Mucus (None) /hpf Urine Osmolality (400-1100) mOsm/kg Ur Random Sodium (40-220) mmol/L Assessment and Plan Plan: Acute hypochloremic hyponatremia, sodium came up to 119 and the patient was taken off the IV fluids. Given a dose of DDAVP. Follow-up sodium level was at 116. Nephrology on the case. Urine osmolality is low. Patient is producing excellent amount of urine output. COVID-19 infection requiring recent hospitalization for an acute on top of chronic hypoxic respiratory failure, discharged from hospital approximately 4 weeks ago Chronic hypoxemic respiratory failure, Advanced COPD, stable, on home oxygen ar 3 liters/min Bipolar disorder with anxiety Fibromyalgia History of chronic tobacco dependence Hypothyroidism History of hypertension History of marijuana use Right lower extremity wound at the level of her hogan, healing. No signs of any acute or ongoing infection at this point Cervical spinal stenosis Scoliosis Irritable bowel syndrome History of colonic polyps Previous history of urine tract infection with Enterococcus History of gastric bypass surgery Plan: IV fluids to KVO Monitor sodium level and avoid any overcorrection's Consult nephrology Titrate the FiO2 as tolerated Educated regarding the importance of smoking cessation NicoDerm patch has been offered Continue Lamictal and Depakote We will further investigate the need for Zyprexa and Seroquel in combination Effexor Consult psychiatry Consult wound care nurse Check thyroid function tests UA Synthroid We will continue to follow and make further recommendations based on her clinical status
[2024-05-23] MEDS: SODIUM CHLORIDE 3%(HYPERTONIC) 500 ML IV ONE (12:59)
[2024-05-23] MEDS ORDERED: traZODone HCL 50 MG TAB PO PRN (14:07)
--- NOTE | 2024-05-23 14:13 | P.CN ---
Psychiatric Consult - . Consult date: 05/23/24 Consult:: 05/23/24 13:33 IDENTIFYING DATA: This patient is a 69-year-old female, currently , lives at home with her in a house, she has 1 daughter REASON FOR REFERRAL: Psychiatry was consulted for psychiatric evaluation HISTORY OF PRESENT ILLNESS: The patient presented to the hospital initially on 05/22 for chest pain/discomfort for the past several weeks, also had dyspnea, has a history of COPD. She was found to be hyponatremic. She was admitted to the ICU for medical care. Patient was agreeable to speak to scientific writer, states that she knows her correct name age date of she knew that she was in "[facility]" and she knew the correct date today. She appeared to answer questions fairly appropriately. She claims that she has been feeling a bit irritable mild mood swings. States that she is mainly feeling anxious, claims that the Ativan is not enough for her. States that she is admitted because her "sodium is dropping". Claims that it has happened once in the past. She states that she is feeling mildly depressed and anxious at this time. Denies any paranoia, claims that her sleep is poor. Claims that her appetite is fair. At this time patient denies any suicidal or homical ideations, intent or plan. Patient denies any auditory, visual hallucinations and denies any paranoia or delusions. Patients admits to using cigarettes and marijuana daily PAST PSYCHIATRIC HISTORY: Patient has a a history of bipolar disorder for 20 or so years.. Patient has been on several different medications in the past including Zyprexa Klonopin Seroquel Effexor, Atarax Depakote and Lamictal. Claims that she was last psychiatrically hospitalized about 10 years ago in [facility]. States that she follows up with her psychiatrist locally. Patient denies any history of suicide attempts in the past. Past Medical History: Asthma, Heart Failure, COPD, Fibromyalgia, GERD/Reflux, Hypertension, Osteoarthritis (OA), Pneumonia, Pulmonary Embolus (PE), Skin Disorder, Thyroid Disorder Additional Past Medical History / Comment(s): Spinal Stenosis, Cervical disc disease/stenosis, scoliosis, recently having numbness/tingling L side of face/neck, recently saw stockfeed miller for L hemidiaphragmatic elevation-pt states she was told this was probably genetic, recently bronchitis and past bronchitis, pt states recent med change (water pill) d/t electrolyte problem/kidney function being affected, pt states she has had pulmonary emboli, past bilateral lower extremity cellulitis, edema lower extremities, IBS, hemorrhoids, benign colon polyps, sinus problems, UTIs, bacteremia/sepsis, cardiac murmur, past L ankle and L wrist fractures. History of Any Multi-Drug Resistant Organisms: MRSA Date of last positivie culture/infection: 03/2024 MDRO Source:: Knee Past Surgical History: Bariatric Surgery, Section, Cholecystectomy, Hysterectomy, Tonsillectomy Additional Past Surgical History / Comment(s): EGD, colonoscopies, gastric bypass, surgery for deviated septum, left cataract removal (having laser procedure on that eye 11/24/23) Past Anesthesia/Blood Transfusion Reactions: Previous Problems w/ Anesthesia Additional Past Anesthesia/Blood Transfusion Reaction / Comment(s): itching after hysterectomy, some kind of breathing problem after gastric bypass-not sure what happened Past Psychological History: Anxiety, Bipolar, Depression, Panic Disorder Smoking Status: Current every day smoker Past Alcohol Use History: None Reported Past Drug Use History: Marijuana ALLERGIES: as per EMR. CHEMICAL DEPENDENCY HISTORY: as per HPI. FAMILY PSYCHIATRIC/SUBSTANCE USE HISTORY: Denies SOCIAL HISTORY: Patient was born and raised in [facility]. Claims that she completed high school and also did college. 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 States that she is has 1 daughter, she lives with her in a house. States that she does not have any legal history. MENTAL STATUS EXAM: General Appearance: Patient appears to be wearing glasses, laying in the bed, stated age is alert, attempts to cooperate. Patient appears to have fair hygiene and grooming wearing hospital gown with fair eye contact. Behavior: Patient is calmly lying in bed without any agitated behavior. Times to cooperate Speech: Patient's speech is fluent and nonpressured. Bryson Mood/Affect: Patient reports their mood is "depressed and anxious", affect is congruent and constricted Suicidality/Homicidality: Patient denies having any suicidal or homicidal ideation intent or plan. Perceptions: Patient denies any visual hallucinations and denies any auditory hallucinations Though content/process: There is no evidence of any delusional thought content and thought process is linear and goal-directed. Focused on her medications Memory and concentration: AOX3, grossly intact for the purposes of this session. Can spell "WORLD" backwards Judgment and insight: Fair IMPRESSIONS: Bipolar disorder unspecified Cannabis use disorder Nicotine dependence PLAN: -At this time patient DOES NOT meet criteria for inpatient psychiatric admission. -Delirium precautions recommended with patient including - avoiding use of narcotics and INFECTION PREVENTIONIST sedatives, limit anticholinergic medications when possible, frequent re-orientation, minimize use of restraints, open window shades during the day and close them at night -Would recommend the following medication changes/additions: Replace Ativan with Klonopin as needed for anxiety. Change Depakote to 250 mg twice daily for mood stabilization. Continue with Lamictal 100 mg twice daily for mood stabilization/depression. Restarted Effexor at a lower dose 75 mg daily for mood/anxiety. Trazodone 50 mg nightly as needed for insomnia. -Communicated plan to patient's nurse -Will continue to follow along -Please contact with any questions. 05/23/24 14:08
[2024-05-23] MEDS: DIVALPROEX ER 250 MG TAB.ER.24H PO SCH (14:48)
[2024-05-23] MEDS: clonazePAM 0.5 MG TAB PO PRN (14:48)
[2024-05-23] MEDS: VENLAFAXINE HCL ER 75 MG CAP PO SCH (14:48)
[2024-05-23] MEDS: FUROSEMIDE 10 MG/ML 2 ML VIAL IV ONE (17:35)
[2024-05-23 19:39] LABS: Glucose,Whole Blood 125 mg/dL (70-110)
[2024-05-24] MEDS: lisinopriL 20 MG TAB PO SCH (05:31)
[2024-05-24] MEDS: METOPROLOL TARTRATE 25 MG TAB PO SCH (05:31)
[2024-05-24] MEDS: SODIUM CHLORIDE 3%(HYPERTONIC) 500 ML IV ONE (05:54)
[2024-05-24 06:15] LABS: Basophils % (A) 0 %; Eosinophils # (A) 0.2 k/uL (0-0.7); Eosinophils % (A) 2 %; Lymphocytes % (A) 20 %; MCH 31.1 pg (25.0-35.0); MCHC 31.5 g/dL (31.0-37.0); MCV 98.6 fL (80.0-100.0); Mean Platelet Volume 7.1; Monocytes # (A) 0.8 k/uL (0-1.0); Monocytes % (A) 8 %; Neutrophils # (A) 6.7 k/uL (1.3-7.7); Neutrophils % (A) 68 %; Platelet Count 248 k/uL (150-450); RBC 3.85 m/uL (3.80-5.40); WBC 9.8 k/uL (3.8-10.6)
[2024-05-24 06:32] LABS: African American GFR (CKD) >90 (>60 ml/min/1.73 sqM); Anion Gap -3 mmol/L; Blood Urea Nitrogen 6 mg/dL (7-17); Calcium 8.5 mg/dL (8.4-10.2); Carbon Dioxide 35 mmol/L (22-30); Chloride 89 mmol/L (98-107); Glucose 75 mg/dL (74-99); Non-African American GFR(CKD) >90 (>60 ml/min/1.73 sqM); Potassium 4.7 mmol/L (3.5-5.1); Sodium 121 mmol/L (137-145)
--- NOTE | 2024-05-24 10:26 | P.PN ---
Subjective Patient seen in follow-up for hyponatremia. Sodium level gradually improving. Currently off 3%. Oral intake just fair. Vital signs are stable. General: No acute distress. HEENT: Head exam is unremarkable. LUNGS: No audible rhonchi or wheezes. HEART: Rate and Rhythm are regular. ABDOMEN: Nontender. EXTREMITITES: No edema. Objective - Vital Signs Vital signs: Vital Signs Temp 98.5 F 05/24/24 08:00 Pulse 67 05/24/24 10:00 Resp 9 L 05/24/24 10:00 BP 168/61 05/24/24 10:00 Pulse Ox 94 L 05/24/24 10:00 FiO2 Intake & Output 05/23/24 05/24/24 05/24/24 18:59 06:59 18:59 Intake Total 1165 560 30 Output Total 420 1165 1000 Balance 745 -605 -970 Weight 75 kg 71.6 kg Intake: IV 330 30 Sodium Chloride 3%( 330 30 Hypertonic) 500 ml @ 30 mls/hr IV .[id number] [facility] Rx #:[id number] Intake, IV Titration 165 30 Amount Sodium Chloride 3%( 165 30 Hypertonic) 500 ml @ 30 mls/hr IV .[id number] [facility] Rx #:[id number] Oral 1000 200 Output: Urine 420 1165 1000 Other: Voiding Method Indwelling Catheter Indwelling Catheter Indwelling Catheter - Labs CBC & Chem 7: 05/24/24 05:38 05/24/24 08:09 Labs: Abnormal Lab Results - Last 24 Hours (Table) 05/23/24 05/23/24 05/23/24 Range/Units 11:01 14:39 16:20 Sodium 116 L* 117 L* 116 L* (137-145) mmol/L Chloride (98-107) mmol/L Carbon Dioxide (22-30) mmol/L BUN (7-17) mg/dL Creatinine (0.52-1.04) mg/dL POC Glucose (mg/dL) (70-110) mg/dL 05/23/24 05/23/24 05/23/24 Range/Units 19:37 19:46 23:00 Sodium 118 L* 117 L* (137-145) mmol/L Chloride (98-107) mmol/L Carbon Dioxide (22-30) mmol/L BUN (7-17) mg/dL Creatinine (0.52-1.04) mg/dL POC Glucose (mg/dL) 125 H (70-110) mg/dL 05/24/24 05/24/24 05/24/24 Range/Units 01:54 05:38 08:09 Sodium 120 L 121 L 123 L (137-145) mmol/L Chloride 89 L (98-107) mmol/L Carbon Dioxide 35 H (22-30) mmol/L BUN 6 L (7-17) mg/dL Creatinine 0.34 L (0.52-1.04) mg/dL POC Glucose (mg/dL) (70-110) mg/dL Assessment and Plan Plan: Assessment: 1. Hypovolemic hyponatremia with component of poor solute intake as well as SIADH from medications. Sodium level gradually improving - 123 this morning. S tatus post D5W and IV DDAVP this admission to avoid rapid correction. TSH 5.2 with normal free T4. Urine sodium 30 and urine osmolality 132. 2. History of COPD. 3. Benign hypertension. 4. Hypomagnesemia from poor intake. Replaced. Plan: Status post IV Lasix given yesterday. Repeat sodium level at 11 AM. Goal rate of sodium correction 6-8 mEq per 24 hours. Lisinopril added today.
--- NOTE | 2024-05-24 12:11 | P.PN ---
Subjective Progress Note Date: 05/24/24 This is a 69-year-old female patient is coming into the intensive care unit for severe hyponatremia. The patient's sodium level was 110 and she was feeling extremely weak and she was also complaining of chest discomfort/pain across her entire upper and lower chest and both arms. Based on that, she came into the emergency department. She did complain of shortness of breath which is essentially chronic. She is known to have COPD. Denies having any nausea or emesis. No reported fever. No altered mentation and she continues to communicate. Her sodium level in the emergency department was 110 with a potassium level of 5.4, bicarb of 32, BUN of 8 with a creatinine of 0.3. Calcium level was 8.8, mag was 1.3, lactic acid level was less than 0.5, bilirubin was 0.4, LFTs were normal and proBNP level was 2000. UA showed leukocyte esterase, 23 WBCs, 1 RBC. The white cell count was at 10.3 with a hemoglobin 12.7 and a platelet count of 275. The patient's chest x-ray at the time of admission showed bilateral small effusions, consistent with some CHF and it showed also mild pulm vessel congestion. It showed smaller lung volumes. EKG showed a normal sinus rhythm with LVH. Patient was seen in the emergency, nephrology has been consulted, based on that, the patient was started on normal saline normal saline at rate of 75 cc an hour. Her most recent sodium level came at 115. Urine output is adequate and the patient has a Husain catheter in place. She has been maintained on various medication outpatient basis including Seroquel, Effexor and and Zyprexa. Urine studies are still pending for now. The patient is known to have multiple hospitalizations in the past. She is known to have COPD, CHF, fibromyalgia, hypertension, hypothyroidism, and chronic anxiety. She has not also previous hospitalization related to COVID-19 infection with secondary hypoxic respiratory failure and the patient was in the hospital for COVID-19 related complications approximately a month ago. She was discharged from the hospital on 04/24/2024 with normal sodium level. She also has previous history of right leg wound that required debridement and was positive for MRSA and Pseudomonas. On 05/23/2024, patient is being seen for a follow-up. The patient is calm and comfortable. The patient was showing improvement in her sodium level which turned out to be as high as 119 from a baseline of 110. The patient was given DDAVP and IV fluids have been discontinued. No new complaints. Sodium level is at 116 in follow-up. Chloride is 87. BUN is 40 mg of 0.2. The urine osmolality was 132 with a urine sodium level of 30. Obviously, this is not consistent with SIADH. The white cell count is at 10.3 with a hemoglobin 4.7 and a platelet count of 275. Will consult psychiatry to make adjustments on the patient psychiatric medications. She remains hemodynamically stable. On 05/24/2024, the patient is being seen for a follow-up. The patient is doing well. No specific complaints. Producing adequate amount of urine output. Awake and alert and communicating. The sodium level from today is at 123. Chloride is 89, BUN 6 with a creatinine of 0.3. The white cell count is at 9.8. The patient was seen by psychiatry and the Zyprexa and the Seroquel at the discontinued. The patient is currently on Klonopin, Depakote, Lamictal and trazodone and Effexor. No other significant events overnight. The patient has no respite distress on 3 L of oxygen by nasal cannula. Objective - Vital Signs Vital signs: Vital Signs Temp 98 F 05/24/24 00:00 Pulse 64 05/24/24 07:45 Resp 17 05/24/24 07:00 BP 168/74 05/24/24 07:00 Pulse Ox 92 L 05/24/24 07:00 FiO2 Intake & Output 05/23/24 05/24/24 05/24/24 18:59 06:59 18:59 Intake Total 1165 560 30 Output Total 420 1165 150 Balance 745 -605 -120 Weight 75 kg 71.6 kg Intake: IV 330 30 Sodium Chloride 3%( 330 30 Hypertonic) 500 ml @ 30 mls/hr IV .[id number] ONE Rx #:[id number] Intake, IV Titration 165 30 Amount Sodium Chloride 3%( 165 30 Hypertonic) 500 ml @ 30 mls/hr IV .[id number] ONE Rx #:[id number] Oral 1000 200 Output: Urine 420 1165 150 Other: Voiding Method Indwelling Catheter Indwelling Catheter - Exam GENERAL EXAM: Alert, anxious 69-year-old female, on 3 L nasal cannula, fairly comfortable in no apparent distress. HEAD: Normocephalic. EYES: Normal reaction of pupils, equal size. NOSE: Clear with pink turbinates. THROAT: No erythema or exudates. NECK: No masses, no JVD. CHEST: No chest wall deformity. LUNGS: Equal air entry with bilateral scattered rhonchi. CVS: S1 and S2 normal with no audible murmur, regular rhythm. ABDOMEN: No hepatosplenomegaly, normal bowel sounds, no guarding or rigidity. SPINE: No scoliosis or deformity SKIN: No rashes, healing wound in the right hogan, no active drainage or abscess CENTRAL NERVOUS SYSTEM: No focal deficits, tone is normal in all 4 extremities. EXTREMITIES: There is no peripheral edema. No clubbing, no cyanosis. Peripheral pulses are intact. - Labs CBC & Chem 7: 05/24/24 05:38 05/24/24 10:36 Labs: Abnormal Lab Results - Last 24 Hours (Table) 05/23/24 05/23/24 05/23/24 Range/Units 11:01 14:39 16:20 Sodium 116 L* 117 L* 116 L* (137-145) mmol/L Chloride (98-107) mmol/L Carbon Dioxide (22-30) mmol/L BUN (7-17) mg/dL Creatinine (0.52-1.04) mg/dL POC Glucose (mg/dL) (70-110) mg/dL 05/23/24 05/23/24 05/23/24 Range/Units 19:37 19:46 23:00 Sodium 118 L* 117 L* (137-145) mmol/L Chloride (98-107) mmol/L Carbon Dioxide (22-30) mmol/L BUN (7-17) mg/dL Creatinine (0.52-1.04) mg/dL POC Glucose (mg/dL) 125 H (70-110) mg/dL 05/24/24 05/24/24 05/24/24 Range/Units 01:54 05:38 08:09 Sodium 120 L 121 L 123 L (137-145) mmol/L Chloride 89 L (98-107) mmol/L Carbon Dioxide 35 H (22-30) mmol/L BUN 6 L (7-17) mg/dL Creatinine 0.34 L (0.52-1.04) mg/dL POC Glucose (mg/dL) (70-110) mg/dL Assessment and Plan Plan: Acute hypochloremic hyponatremia, improving and a sodium level is up to 123 COVID-19 infection requiring recent hospitalization for an acute on top of chromium plater nato hypoxic respiratory failure, discharged from hospital approximately 4 weeks ago Chronic hypoxemic respiratory failure, Advanced COPD, stable, on home oxygen ar 3 liters/min Bipolar disorder with anxiety Fibromyalgia History of chronic tobacco dependence Hypothyroidism History of hypertension History of marijuana use Right lower extremity wound at the level of her hogan, healing. No signs of any acute or ongoing infection at this point Cervical spinal stenosis Scoliosis Irritable bowel syndrome History of colonic polyps Previous history of urine tract infection with Enterococcus History of gastric bypass surgery Plan: IV fluids to KVO Monitor sodium level and avoid any overcorrection's Consult nephrology is appreciated Fluid restriction Titrate the FiO2 as tolerated Educated regarding the importance of smoking cessation NicoDerm patch has been offered Continue Lamictal and Depakote Continue the combination Effexor and trazodone Consult psychiatry is appreciated Consult wound care nurse Synthsudhir We will continue to follow and make further recommendations based on her clinical status
[2024-05-24] MEDS: SODIUM CHLORIDE TAB 1 GM TAB PO STA (14:48)
[2024-05-24] MEDS: SODIUM CHLORIDE TAB 1 GM TAB PO ONE (20:37)
--- NOTE | 2024-05-25 00:11 | P.PN ---
Subjective Progress Note Date: 05/23/24 Patient is a 69-year-old female with a past medical history of hypertension, fibromyalgia, COPD, GERD, history of PE, hypothyroidism, spinal stenosis, cervical disc disease/stenosis, scoliosis, anxiety/depression/bipolar/panic disorder and currently everyday smoker and occasional marijuana use. Patient presents to ER with complaints of cramping pain across the upper chest, shoulder and both arms. Patient has been having symptoms for the past few weeks. Referred for shortness of breath. No nausea or vomiting. Denied any fever or chills. No cough or sputum production. EKG showed sinus rhythm. Chest x-ray showed bilateral infiltrate and small effusion correlate for CHF. Otherwise consider pneumonia. Laboratory data showed WBC 10.3 hemoglobin 12.7 platelets 275 Sodium 110 potassium 5.4 chloride 76 bicarb is 32 BUN 18 creatinine 0.36 Magnesium 1.3 AST 41 ALT 21 alk phos 57 and proBNP 2000 Urinalysis cloudy with large leukocyte esterase with elevated RBCs and squamous epithelial cells 49. Patient is on psychiatric medication including Zyprexa, Seroquel and Effexor. Patient is also on Klonopin for anxiety/panic disorder. Patient was given a dose of ceftriaxone azithromycin for possible pneumonia. Urine Legionella antigen and procalcitonin level was ordered. 05/23/2024 Patient is in MICU. Awake and alert. Sodium level improved to 116 this morning. Patient was also continued on IV fluids with normal saline and also given a dose of DDAVP. Currently IV fluids on hold. Laboratory showed potassium 4.7 chloride 87 bicarb 30 BUN 14 creatinine 0.28 and blood sugar 121. Magnesium 1.7. Patient was also started on heart healthy diet. Nephrology and critical care team on board. Current medications reviewed. Objective - Vital Signs Vital signs: Vital Signs Temp 98.3 F 05/23/24 20:00 Pulse 69 05/23/24 22:00 Resp 12 05/23/24 22:00 BP 114/50 05/23/24 22:00 Pulse Ox 97 05/23/24 22:00 FiO2 Intake & Output 05/23/24 05/23/24 05/24/24 06:59 18:59 06:59 Intake Total 1475 1165 220 Output Total 3420 420 600 Balance -1945 745 -380 Weight 75 kg 75 kg Intake: IV 1475 Dextrose 5% in Water 1, 1000 000 ml @ 200 mls/hr IV . Q5H ONE Rx#:[id number] Magnesium Sulfate-D5w Pmx 100 1 gm In Dextrose/Water 1 100ml.bag @ 100 mls/hr IVPB Q[facility]H [facility] Rx#: [id number] Sodium Chloride 0.45% 1, 375 000 ml @ 125 mls/hr IV . Q8H [facility] Rx#:[id number] Sodium Chloride 0.9% 1, 0 000 ml @ 75 mls/hr IV . [id number] [facility] Rx#:[id number] Intake, IV Titration 165 120 Amount Sodium Chloride 3%( 165 120 Hypertonic) 500 ml @ 30 mls/hr IV .[id number] ONE Rx #:[id number] Oral 1000 100 Output: Urine 3420 420 600 Other: Voiding Method Indwelling Catheter Indwelling Catheter Indwelling Catheter - Exam PHYSICAL EXAMINATION: Patient is lying in the bed, appears to be in mild distress, awake alert and oriented HEENT: Normocephalic. Neck is supple. Pupils reactive. Nostrils clear. Oral cavity is moist. Neck reveals no JVD, carotid bruits, or thyromegaly. CHEST EXAMINATION: Trachea is central. Symmetrical expansion. Lung flores clear to auscultation and percussion. CARDIAC: Normal S1, S2 with no gallops. No murmurs ABDOMEN: Soft. Bowel sounds present. No organomegaly. No abdominal bruits. Extremities: reveal no edema. No clubbing or cyanosis Neurologically awake, alert, oriented x3 with well-coordinated movements. No gross focal deficits noted Skin: No rash or skin lesions. Psychiatric: Coperative. Nonsuicidal, anxious. Musculoskeletal: No joint swelling or deformity. Normal range of motion. - Labs CBC & Chem 7: 05/24/24 05:38 05/24/24 16:56 Labs: Abnormal Lab Results - Last 24 Hours (Table) 05/22/24 05/23/24 05/23/24 Range/Units 22:44 00:15 02:40 Sodium 119 L* 119 L* 117 L* (137-145) mmol/L Chloride (98-107) mmol/L BUN (7-17) mg/dL Creatinine (0.52-1.04) mg/dL Glucose (74-99) mg/dL POC Glucose (mg/dL) (70-110) mg/dL Calcium (8.4-10.2) mg/dL TSH (0.465-4.680) mIU/L 05/23/24 05/23/24 05/23/24 Range/Units 04:00 07:52 11:01 Sodium 116 L* 117 L* 116 L* (137-145) mmol/L Chloride 87 L (98-107) mmol/L BUN 4 L (7-17) mg/dL Creatinine 0.28 L (0.52-1.04) mg/dL Glucose 121 H (74-99) mg/dL POC Glucose (mg/dL) (70-110) mg/dL Calcium 8.2 L (8.4-10.2) mg/dL TSH 5.260 H (0.465-4.680) mIU/L 05/23/24 05/23/24 05/23/24 Range/Units 14:39 16:20 19:37 Sodium 117 L* 116 L* (137-145) mmol/L Chloride (98-107) mmol/L BUN (7-17) mg/dL Creatinine (0.52-1.04) mg/dL Glucose (74-99) mg/dL POC Glucose (mg/dL) 125 H (70-110) mg/dL Calcium (8.4-10.2) mg/dL TSH (0.465-4.680) mIU/L 05/23/24 05/23/24 Range/Units 19:46 23:00 Sodium 118 L* 117 L* (137-145) mmol/L Chloride (98-107) mmol/L BUN (7-17) mg/dL Creatinine (0.52-1.04) mg/dL Glucose (74-99) mg/dL POC Glucose (mg/dL) (70-110) mg/dL Calcium (8.4-10.2) mg/dL TSH (0.465-4.680) mIU/L Assessment and Plan Assessment: Severe hyponatremia. Likely hypovolemic hypoosmolar hyponatremia due to decreased oral intake and volume positive. Sodium level 110 on admission Cramping pain across the upper chest and shoulders and bilateral upper extremities. Hypomagnesemia Chronic hypoxic respiratory failure secondary COPD and recent COVID-19 infection. On 3 L oxygen via nasal cannula Hypertension Anxiety/depression/bipolar disorder and panic disorder Currently everyday smoker Fibromyalgia Osteoarthritis History of PE Hypothyroidism Spinal stenosis and cervical degenerative disc disease History of bariatric surgery/gastric bypass Currently everyday smoker and Marijuana use disorder GI and DVT prophylaxis with heparin subcu and Plan: Patient was given DDAVP and was continued IV fluids. Currently fluids are off. Follow-up sodium level closely. Replace magnesium. Procalcitonin level Continue with DuoNebs as needed and Symbicort. Continue with oxygen supple mentation. Will hold Zyprexa, Seroquel and Effexor. Psychiatric consult for titration of medical will continue Depakote and Lamictal. Critical care team and nephrology on board. Continue to follow closely. Prognosis is guarded. Time with Patient: Greater than 30
[2024-05-25 09:16] LABS: Basophils # (A) 0.06 X 10*3/uL (0.00-0.10); Basophils % (A) 0.6 %; Eosinophils # (A) 0.11 X 10*3/uL (0.04-0.35); Eosinophils % (A) 1.2 %; HCT 33.4 % (37.2-46.3); HGB 10.9 g/dL (12.0-15.0); Lymphocytes # (A) 1.68 X 10*3/uL (0.90-5.00); Lymphocytes % (A) 18.2 %; MCH 31.8 pg (27.0-32.0); MCHC 32.6 g/dL (32.0-37.0); MCV 97.4 FL (80.0-97.0); Mean Platelet Volume 9.5 FL (9.5-12.2); Monocytes # (A) 0.98 X 10*3/uL (0.20-1.00); Monocytes % (A) 10.6 %; NRBC Per 100 WBC 0 X 10*3/uL (0.00-0.01); Neutrophils # (A) 6.37 X 10*3/uL (1.80-7.70); Platelet Count 245 X 10*3/uL (140-440); RBC 3.43 X 10*6/uL (4.10-5.20); RDW 12.9 % (11.5-14.5); WBC 9.24 X 10*3/uL (4.50-10.00)
[2024-05-25 09:24] LABS: BUN/Creat Ratio 19.33 Ratio (12.00-20.00); Blood Urea Nitrogen 5.8 mg/dL (9.0-27.0); Calcium 8.9 mg/dL (8.7-10.3); Carbon Dioxide 31.3 mmol/L (21.6-31.8); Chloride 91 mmol/L (96-109); Glucose 81 mg/dL (70-110); Potassium 4.8 mmol/L (3.5-5.5); Sodium 128 mmol/L (135-145)
--- NOTE | 2024-05-25 09:46 | P.PN ---
Subjective Patient seen in follow-up for hyponatremia. Sodium level gradually improving. Off IV fluids. Received sodium chloride tabs yesterday. Has Husain catheter. Nonoliguric. Wants to go home. Vital signs are stable. General: No acute distress. HEENT: Head exam is unremarkable. LUNGS: No audible rhonchi or wheezes. HEART: Rate and Rhythm are regular. ABDOMEN: Nontender. EXTREMITITES: No edema. Objective - Vital Signs Vital signs: Vital Signs Temp 98.2 F 05/25/24 07:27 Pulse 64 05/25/24 09:33 Resp 12 05/25/24 07:27 BP 178/76 05/25/24 07:27 Pulse Ox 97 05/25/24 00:40 FiO2 Intake & Output 05/24/24 05/25/24 05/25/24 18:59 06:59 18:59 Intake Total 30 Output Total 2325 1400 Balance -2295 1400 Intake: IV 30 Sodium Chloride 3%( 30 Hypertonic) 500 ml @ 30 mls/hr IV .[id number] ONE Rx #:[id number] Output: Urine 2325 1400 Other: Voiding Method Indwelling Catheter Indwelling Catheter Indwelling Catheter - Labs CBC & Chem 7: 05/25/24 03:28 05/25/24 03:28 Labs: Abnormal Lab Results - Last 24 Hours (Table) 05/24/24 05/24/24 05/25/24 Range/Units 10:36 16:56 03:28 RBC (4.10-5.20) X 10*6/uL Hgb (12.0-15.0) g/dL Hct (37.2-46.3) % MCV (80.0-97.0) [place] Sodium 123 L 124 L 128 L (137-145) mmol/L Chloride 91 L (96-109) mmol/L BUN 5.8 L (9.0-27.0) mg/dL Creatinine 0.3 L (0.6-1.5) mg/dL 05/25/24 Range/Units 03:28 RBC 3.43 L (4.10-5.20) X 10*6/uL Hgb 10.9 L (12.0-15.0) g/dL Hct 33.4 L (37.2-46.3) % MCV 97.4 H (80.0-97.0) FL Sodium (137-145) mmol/L Chloride (96-109) mmol/L BUN (9.0-27.0) mg/dL Creatinine (0.6-1.5) mg/dL Microbiology - Last 24 Hours (Table) 05/23/24 14:38 Blood Culture - Preliminary Blood Assessment and Plan Plan: Assessment: 1. Hypovolemic hyponatremia with component of poor solute intake as well as SIADH from medications. Sodium level gradually improving - 128 this morning. Status post D5W and IV DDAVP this admission to avoid rapid correction. TSH 5.2 with normal free T4. Urine sodium 30 and urine osmolality 132. 2. History of COPD. 3. Benign hypertension. Stable. 4. Hypomagnesemia from poor intake. Replaced. Plan: Add sodium chloride tab once daily. Advised patient to maintain fluid restriction of less than 50 to 55 ounces per day. Encouraged oral intake, particularly protein. Repeat BMP and magnesium level 2 to 3 days postdischarge. Follow-up outpatient in 1 week. Okay to WALKER Husain catheter from nephrology standpoint.
--- NOTE | 2024-05-25 09:51 | P.PN ---
Subjective Progress Note Date: 05/24/24 Patient is a 69-year-old female with a past medical history of hypertension, fibromyalgia, COPD, GERD, history of PE, hypothyroidism, spinal stenosis, cervical disc disease/stenosis, scoliosis, anxiety/depression/bipolar/panic disorder and currently everyday smoker and occasional marijuana use. Patient presents to ER with complaints of cramping pain across the upper chest, shoulder and both arms. Patient has been having symptoms for the past few weeks. Referred for shortness of breath. No nausea or vomiting. Denied any fever or chills. No cough or sputum production. EKG showed sinus rhythm. Chest x-ray showed bilateral infiltrate and small effusion correlate for CHF. Otherwise consider pneumonia. Laboratory data showed WBC 10.3 hemoglobin 12.7 platelets 275 Sodium 110 potassium 5.4 chloride 76 bicarb is 32 BUN 18 creatinine 0.36 Magnesium 1.3 AST 41 ALT 21 alk phos 57 and proBNP 2000 Urinalysis cloudy with large leukocyte esterase with elevated RBCs and squamous epithelial cells 49. Patient is on psychiatric medication including Zyprexa, Seroquel and Effexor. Patient is also on Klonopin for anxiety/panic disorder. Patient was given a dose of ceftriaxone azithromycin for possible pneumonia. Urine Legionella antigen and procalcitonin level was ordered. 05/23/2024 Patient is in MICU. Awake and alert. Sodium level improved to 116 this morning. Patient was also continued on IV fluids with normal saline and also given a dose of DDAVP. Currently IV fluids on hold. Laboratory showed potassium 4.7 chloride 87 bicarb 30 BUN 14 creatinine 0.28 and blood sugar 121. Magnesium 1.7. Patient was also started on heart healthy diet. Nephrology and critical care team on board. 05/24/2024 Patient is currently MICU. Awake alert and oriented. No complaints of chest pain or shortness of breath. On 3 L oxygen via nasal cannula patient is feeling better. Sodium improved to 121. Currently on hypertonic saline. Denied any complaints of nausea vomiting abdominal pain or diarrhea. No cough or sputum production. Other laboratory data showed WBC 9.8 hemoglobin 12.0 and platelets 248 sodium 121 potassium 4.7 chloride 89 bicarb is 35 BUN 16 creatinine 0.34 and blood sugar 75. Current medications reviewed. Objective - Vital Signs Vital signs: Vital Signs Temp 97.5 F L 05/24/24 19:10 Pulse 68 05/24/24 20:56 Resp 17 05/24/24 19:10 BP 138/63 05/24/24 19:10 Pulse Ox 99 05/24/24 19:10 FiO2 Intake & Output 05/24/24 05/24/24 05/25/24 06:59 18:59 06:59 Intake Total 560 30 Output Total 1165 2325 Balance -605 -8804 Weight 71.6 kg Intake: IV 330 30 Sodium Chloride 3%( 330 30 Hypertonic) 500 ml @ 30 mls/hr IV .[id number] ONE Rx #:[id number] Intake, IV Titration 30 Amount Sodium Chloride 3%( 30 Hypertonic) 500 ml @ 30 mls/hr IV .[id number] ONE Rx #:[id number] Oral 200 Output: Urine 1165 2325 Other: Voiding Method Indwelling Catheter Indwelling Catheter Indwelling Catheter - Exam PHYSICAL EXAMINATION: Patient is lying in the bed, appears to be in mild distress, awake alert and oriented HEENT: Normocephalic. Neck is supple. Pupils reactive. Nostrils clear. Oral cavity is moist. Neck reveals no JVD, carotid bruits, or thyromegaly. CHEST EXAMINATION: Trachea is central. Symmetrical expansion. Lung flores clear to auscultation and percussion. CARDIAC: Normal S1, S2 with no gallops. No murmurs ABDOMEN: Soft. Bowel sounds present. No organomegaly. No abdominal bruits. Extremities: reveal no edema. No clubbing or cyanosis Neurologically awake, alert, oriented x3 with well-coordinated movements. No gross focal deficits noted Skin: No rash or skin lesions. Psychiatric: Coperative. Nonsuicidal, anxious. Musculoskeletal: No joint swelling or deformity. Normal range of motion. - Labs CBC & Chem 7: 05/25/24 03:28 05/25/24 03:28 Labs: Abnormal Lab Results - Last 24 Hours (Table) 05/24/24 05/24/24 05/24/24 Range/Units 01:54 05:38 08:09 Sodium 120 L 121 L 123 L (137-145) mmol/L Chloride 89 L (98-107) mmol/L Carbon Dioxide 35 H (22-30) mmol/L BUN 6 L (7-17) mg/dL Creatinine 0.34 L (0.52-1.04) mg/dL 05/24/24 05/24/24 Range/Units 10:36 16:56 Sodium 123 L 124 L (137-145) mmol/L Chloride (98-107) mmol/L Carbon Dioxide (22-30) mmol/L BUN (7-17) mg/dL Creatinine (0.52-1.04) mg/dL Microbiology - Last 24 Hours (Table) 05/23/24 14:38 Blood Culture - Preliminary Blood Assessment and Plan Assessment: Severe hyponatremia. Likely hypovolemic hypoosmolar hyponatremia due to de creased oral intake and volume positive. Sodium level 110 on admission Cramping pain across the upper chest and shoulders and bilateral upper extremities. Hypomagnesemia Chronic hypoxic respiratory failure secondary COPD and recent COVID-19 infection. On 3 L oxygen via nasal cannula Hypertension Anxiety/depression/bipolar disorder and panic disorder Currently everyday smoker Fibromyalgia Osteoarthritis History of PE Hypothyroidism Spinal stenosis and cervical degenerative disc disease History of bariatric surgery/gastric bypass Currently everyday smoker and Marijuana use disorder GI and DVT prophylaxis with heparin subcu and Plan: Patient was given DDAVP and was continued IV fluids. Patient is on hypertonic saline.. Sodium level is improving.. Replace magnesium. Procalcitonin level was not elevated. Antibiotics have been discontinued. Continue with DuoNebs as needed and Symbicort. Continue with oxygen supplementation. Will hold Zyprexa, Seroquel. Effexor has been restarted as per psychiatry recommendations. Continue Depakote and Lamictal. Critical care team and nephrology on board. Patient is being transferred to medical floor today. Continue to follow closely. Prognosis is guarded. Time with Patient: Greater than 30
[2024-05-25] MEDS: MAGNESIUM OXIDE 400 MG TAB PO SCH (10:48)
[2024-05-25] MEDS: SODIUM CHLORIDE TAB 1 GM TAB PO SCH (10:49)
[2024-05-25] MEDS: MAGNESIUM SULFATE-D5W PMX 1 GM in DEXTROSE/WATER 1 100ML.BAG IVPB SCH (16:57)
--- NOTE | 2024-05-25 17:31 | P.PN ---
Progress Note - Text Progress Note Date: 05/25/24 Interval history: Patient was seen today for psychiatric follow-up. Patient was mildly irritable however did state that she is doing a bit better today and denied any overnight events. states that her anxiety is a bit better. claims she is only sleeping 2-3 hours at night and continues to have racing thooughts. she denies any SI or Hi and denies any AH or Vh. denies any s/e from her meds. attention span is improving. denies any paranoia. MENTAL STATUS EXAM: General Appearance: Patient appears to be wearing glasses, laying in the bed, stated age is alert, attempts to cooperate. Patient appears to have fair hygiene and grooming wearing hospital gown with fair eye contact. Behavior: Patient is calmly lying in bed without any agitated behavior. Times to cooperate, mildly irritable. Speech: Patient's speech is fluent and nonpressured. [place], improving Mood/Affect: Patient reports their mood is "a bit better", affect is congruent Suicidality/Homicidality: Patient denies having any suicidal or homicidal ideation intent or plan. Perceptions: Patient denies any visual hallucinations and denies any auditory hallucinations Though content/process: There is no evidence of any delusional thought content and thought process is linear and goal-directed Memory and concentration: AOX3, grossly intact for the purposes of this session Judgment and insight: improving mildly IMPRESSIONS: Bipolar disorder unspecified Cannabis use disorder Nicotine dependence PLAN: -At this time patient DOES NOT meet criteria for inpatient psychiatric admission. -Delirium precautions recommended with patient including - avoiding use of narcotics and [employer] sedatives, limit anticholinergic medications when possible, frequent re-orientation, minimize use of restraints, open window shades during the day and close them at night -Would recommend the following medication changes/additions: continue Klonopin as needed for anxiety. Depakote 250 mg twice daily for mood stabilization. Continue with Lamictal 100 mg twice daily for mood stabilization/depression. Effexor 75 mg daily for mood/anxiety. Trazodone 50 mg nightly as needed for insomnia. start zyprexa 5 mg qhs for mood stabilization/sleep -Communicated plan to patient's nurse -at this time psychiatry will sign off. -Please contact with any questions.
--- NOTE | 2024-05-25 17:36 | P.PN ---
Subjective Progress Note Date: 05/25/24 This is a 69-year-old female patient is coming into the intensive care unit for severe hyponatremia. The patient's sodium level was 110 and she was feeling extremely weak and she was also complaining of chest discomfort/pain across her entire upper and lower chest and both arms. Based on that, she came into the emergency department. She did complain of shortness of breath which is essentially chronic. She is known to have COPD. Denies having any nausea or emesis. No reported fever. No altered mentation and she continues to communicate. Her sodium level in the emergency department was 110 with a potassium level of 5.4, bicarb of 32, BUN of 8 with a creatinine of 0.3. Calcium level was 8.8, mag was 1.3, lactic acid level was less than 0.5, bilirubin was 0.4, LFTs were normal and proBNP level was 2000. UA showed leukocyte esterase, 23 WBCs, 1 RBC. The white cell count was at 10.3 with a hemoglobin 12.7 and a platelet count of 275. The patient's chest x-ray at the time of admission showed bilateral small effusions, consistent with some CHF and it showed also mild pulm vessel congestion. It showed smaller lung volumes. EKG showed a normal sinus rhythm with LVH. Patient was seen in the emergency, nephrology has been consulted, based on that, the patient was started on normal saline normal saline at rate of 75 cc an hour. Her most recent sodium level came at 115. Urine output is adequate and the patient has a Husain catheter in place. She has been maintained on various medication outpatient basis including Seroquel, Effexor and and Zyprexa. Urine studies are still pending for now. The patient is known to have multiple hospitalizations in the past. She is known to have COPD, CHF, fibromyalgia, hypertension, hypothyroidism, and chronic anxiety. She has not also previous hospitalization related to COVID-19 infection with secondary hypoxic respiratory failure and the patient was in the hospital for COVID-19 related complications approximately a month ago. She was discharged from the hospital on 04/24/2024 with normal sodium level. She also has previous history of right leg wound that required debridement and was positive for MRSA and Pseudomonas. On 05/23/2024, patient is being seen for a follow-up. The patient is calm and comfortable. The patient was showing improvement in her sodium level which turned out to be as high as 119 from a baseline of 110. The patient was given DDAVP and IV fluids have been discontinued. No new complaints. Sodium level is at 116 in follow-up. Chloride is 87. BUN is 40 mg of 0.2. The urine osmolality was 132 with a urine sodium level of 30. Obviously, this is not consistent with SIADH. The white cell count is at 10.3 with a hemoglobin 4.7 and a platelet count of 275. Will consult psychiatry to make adjustments on the patient psychiatric medications. She remains hemodynamically stable. On 05/24/2024, the patient is being seen for a follow-up. The patient is doing well. No specific complaints. Producing adequate amount of urine output. Awake and alert and communicating. The sodium level from today is at 123. Chloride is 89, BUN 6 with a creatinine of 0.3. The white cell count is at 9.8. The patient was seen by psychiatry and the Zoraidaypfarrukh and the Seroquel at the discontinued. The patient is currently on Klonopin, Depakote, Lamictal and trazodone and Effexor. No other significant events overnight. The patient has no respite distress on 3 L of oxygen by nasal cannula. 05/25/2024, patient is being seen for a follow-up. Patient is awake and alert. No altered mentation. Sodium levels at 128. Husain catheter in place and she is producing excellent urine output with a negative fluid balance of 3.6 L over the past 24 hours. No other new issues for now. Psychiatric medications been adjusted. Hemodynamically stable. Wound care is being performed to her right lower extremity. She remains on 3 L nasal cannula. No respiratory distress for now. No other significant issues. Objective - Vital Signs Vital signs: Vital Signs Temp 98.2 F 05/25/24 07:27 Pulse 64 05/25/24 09:33 Resp 12 05/25/24 10:08 BP 178/76 05/25/24 07:27 Pulse Ox 97 05/25/24 00:40 FiO2 Intake & Output 05/24/24 05/25/24 05/25/24 18:59 06:59 18:59 Intake Total 30 Output Total 4004 1400 1100 Balance -5922 -1400 1100 Intake: IV 30 Sodium Chloride 3%( 30 Hypertonic) 500 ml @ 30 mls/hr IV .[id number] ONE Rx #:[id number] Output: Urine 2325 1400 1100 Other: Voiding Method Indwelling Catheter Indwelling Catheter Indwelling Catheter - Exam GENERAL EXAM: Alert, anxious 69-year-old female, on 3 L nasal cannula, fairly comfortable in no apparent distress. HEAD: Normocephalic. EYES: Normal reaction of pupils, equal size. NOSE: Clear with pink turbinates. THROAT: No erythema or exudates. NECK: No masses, no JVD. CHEST: No chest wall deformity. LUNGS: Equal air entry with bilateral scattered rhonchi. CVS: S1 and S2 normal with no audible murmur, regular rhythm. ABDOMEN: No hepatosplenomegaly, normal bowel sounds, no guarding or rigidity. SPINE: No scoliosis or deformity SKIN: No rashes, healing wound in the right hogan, no active drainage or abscess CENTRAL NERVOUS SYSTEM: No focal deficits, tone is normal in all 4 extremities. EXTREMITIES: There is no peripheral edema. No clubbing, no cyanosis. Peripheral pulses are intact. - Labs CBC & Chem 7: 05/25/24 03:28 05/25/24 03:28 Labs: Abnormal Lab Results - Last 24 Hours (Table) 05/24/24 05/24/24 05/25/24 Range/Units 10:36 16:56 03:28 RBC (4.10-5.20) X 10*6/uL Hgb (12.0-15.0) g/dL Hct (37.2-46.3) % MCV (80.0-97.0) FL Sodium 123 L 124 L 128 L (137-145) mmol/L Chloride 91 L (96-109) mmol/L BUN 5.8 L (9.0-27.0) mg/dL Creatinine 0.3 L (0.6-1.5) mg/dL 05/25/24 Range/Units 03:28 RBC 3.43 L (4.10-5.20) X 10*6/uL Hgb 10.9 L (12.0-15.0) g/dL Hct 33.4 L (37.2-46.3) % MCV 97.4 H (80.0-97.0) FL Sodium (137-145) mmol/L Chloride (96-109) mmol/L BUN (9.0-27.0) mg/dL Creatinine (0.6-1.5) mg/dL Microbiology - Last 24 Hours (Table) 05/23/24 14:38 Blood Culture - Preliminary Blood Assessment and Plan Plan: Acute hypochloremic hyponatremia, improving and a sodium level is up to 128, p roducing excellent urine output with a negative fluid balance COVID-19 infection requiring recent hospitalization for an acute on top of chronic hypoxic respiratory failure, discharged from hospital approximately 4 weeks ago Chronic hypoxemic respiratory failure, Advanced COPD, stable, on home oxygen ar 3 liters/min Bipolar disorder with anxiety Fibromyalgia History of chronic tobacco dependence Hypothyroidism History of hypertension History of marijuana use Right lower extremity wound at the level of her hogan, healing. No signs of any acute or ongoing infection at this point Cervical spinal stenosis Scoliosis Irritable bowel syndrome History of colonic polyps Previous history of urine tract infection with Enterococcus History of gastric bypass surgery Plan: IV fluids to KVO Fluid restriction Sodium level is improved No altered mentation Consult nephrology is appreciated Titrate the FiO2 as tolerated, currently on 3 L Educated regarding the importance of smoking cessation NicoDerm patch has been offered Continue Lamictal and Depakote Continue the combination Effexor and trazodone Consult psychiatry is appreciated Consult wound care nurse Synthroid We will continue to follow and make further recommendations based on her clinical status
[2024-05-25] MEDS: OLANZapine 5 MG TAB PO SCH (20:43)
--- NOTE | 2024-05-25 22:11 | P.PN ---
Subjective Progress Note Date: 05/25/24 Patient is a 69-year-old female with a past medical history of hypertension, fibromyalgia, COPD, GERD, history of PE, hypothyroidism, spinal stenosis, cervical disc disease/stenosis, scoliosis, anxiety/depression/bipolar/panic disorder and currently everyday smoker and occasional marijuana use. Patient presents to ER with complaints of cramping pain across the upper chest, shoulder and both arms. Patient has been having symptoms for the past few weeks. Referred for shortness of breath. No nausea or vomiting. Denied any fever or chills. No cough or sputum production. EKG showed sinus rhythm. Chest x-ray showed bilateral infiltrate and small effusion correlate for CHF. Otherwise consider pneumonia. Laboratory data showed WBC 10.3 hemoglobin 12.7 platelets 275 Sodium 110 potassium 5.4 chloride 76 bicarb is 32 BUN 18 creatinine 0.36 Magnesium 1.3 AST 41 ALT 21 alk phos 57 and proBNP 2000 Urinalysis cloudy with large leukocyte esterase with elevated RBCs and squamous epithelial cells 49. Patient is on psychiatric medication including Zyprexa, Seroquel and Effexor. Patient is also on Klonopin for anxiety/panic disorder. Patient was given a dose of ceftriaxone azithromycin for possible pneumonia. Urine Legionella antigen and procalcitonin level was ordered. 05/23/2024 Patient is in MICU. Awake and alert. Sodium level improved to 116 this morning. Patient was also continued on IV fluids with normal saline and also given a dose of DDAVP. Currently IV fluids on hold. Laboratory showed potassium 4.7 chloride 87 bicarb 30 BUN 14 creatinine 0.28 and blood sugar 121. Magnesium 1.7. Patient was also started on heart healthy diet. Nephrology and critical care team on board. 05/24/2024 Patient is currently MICU. Awake alert and oriented. No complaints of chest pain or shortness of breath. On 3 L oxygen via nasal cannula patient is feeling better. Sodium improved to 121. Currently on hypertonic saline. Denied any complaints of nausea vomiting abdominal pain or diarrhea. No cough or sputum production. Other laboratory data showed WBC 9.8 hemoglobin 12.0 and platelets 248 sodium 121 potassium 4.7 chloride 89 bicarb is 35 BUN 16 creatinine 0.34 and blood sugar 75. 05/25/2024 Patient is resting in the bed. Awake alert and oriented x 3. No complaints of chest pain or shortness of breath. No fever no chills. No other acute overnight issues. IV fluids on hold. Sodium level improved to 128 this morning. Patient is otherwise tolerating oral diet. Laboratory data showed WBC 9 point hemoglobin 10.9 and platelets 245 sodium 128 potassium 4.8 chloride 91 bicarb is 31.3 BUN 5.8 and creatinine 0.3 and blood sugar 116. Magnesium 1.5. Nephrology is on board. Current medications reviewed. Objective - Vital Signs Vital signs: Vital Signs Temp 97.8 F 05/25/24 20:07 Pulse 74 05/25/24 20:55 Resp 18 05/25/24 20:07 BP 173/82 05/25/24 20:07 Pulse Ox 99 05/25/24 20:07 FiO2 Intake & Output 05/25/24 05/25/24 05/26/24 06:59 18:59 06:59 Output Total 1400 1300 Balance -1400 -1300 Output: Urine 1400 1300 Uretheral (Husain) 200 Other: Voiding Method Indwelling Catheter Indwelling Catheter Bedside Commode # Voids 2 1 - Exam PHYSICAL EXAMINATION: Patient is lying in the bed, appears to be in mild distress, awake alert and oriented HEENT: Normocephalic. Neck is supple. Pupils reactive. Nostrils clear. Oral cavity is moist. Neck reveals no JVD, carotid bruits, or thyromegaly. CHEST EXAMINATION: Trachea is central. Symmetrical expansion. Lung flores clear to auscultation and percussion. CARDIAC: Normal S1, S2 with no gallops. No murmurs ABDOMEN: Soft. Bowel sounds present. No organomegaly. No abdominal bruits. Extremities: reveal no edema. No clubbing or cyanosis Neurologically awake, alert, oriented x3 with well-coordinated movements. No gross focal deficits noted Skin: No rash or skin lesions. Psychiatric: Coperative. Nonsuicidal, anxious. Musculoskeletal: No joint swelling or deformity. Normal range of motion. - Labs CBC & Chem 7: 05/25/24 03:28 05/25/24 03:28 Labs: Abnormal Lab Results - Last 24 Hours (Table) 05/25/24 05/25/24 Range/Units 03:28 03:28 RBC 3.43 L (4.10-5.20) X 10*6/uL Hgb 10.9 L (12.0-15.0) g/dL Hct 33.4 L (37.2-46.3) % MCV 97.4 H (80.0-97.0) FL Sodium 128 L (135-145) mmol/L Chloride 91 L (96-109) mmol/L BUN 5.8 L (9.0-27.0) mg/dL Creatinine 0.3 L (0.6-1.5) mg/dL Microbiology - Last 24 Hours (Table) 05/23/24 14:38 Blood Culture - Preliminary Blood Assessment and Plan Assessment: Severe hyponatremia. Likely hypovolemic hypoosmolar hyponatremia due to decreased oral intake and volume positive. Sodium level 110 on admission Cramping pain across the upper chest and shoulders and bilateral upper extremities. Hypomagnesemia Chronic hypoxic respiratory failure secondary COPD and recent COVID-19 infection. On 3 L oxygen via nasal cannula Hypertension Anxiety/depression/bipolar disorder and panic disorder Currently everyday smoker Fibromyalgia Osteoarthritis History of PE Hypothyroidism Spinal stenosis and cervical degenerative disc disease History of bariatric surgery/gastric bypass Currently everyday smoker and Marijuana use disorder GI and DVT prophylaxis with heparin subcu and Plan: Sodium level is improving. IV fluids on hold. Patient is tolerating oral diet... Replace magnesium. Procalcitonin level was not elevated. Antibiotics have been discontinued. Continue with DuoNebs as needed and Symbicort. Continue with oxygen supplementation. Will hold Zyprexa, Seroquel. Effexor has been restarted as per psychiatry recommendations. Continue Depakote and Lamictal. Critical care team and nephrology on board. Patient is being transferred to medical floor today. Continue to follow closely. Prognosis is guarded. Time with Patient: Greater than 30
[2024-05-25] MEDS: MAGNESIUM SULFATE-D5W PMX 1 GM in DEXTROSE/WATER 1 100ML.BAG IVPB ONE (22:49)
--- NOTE | 2024-05-26 10:09 | P.PN ---
Subjective Patient seen in follow-up for hyponatremia. Sodium level gradually improving. On sodium chloride tabs. Husain catheter removed. Has been voiding. Vital signs are stable. General: No acute distress. HEENT: Head exam is unremarkable. LUNGS: No audible rhonchi or wheezes. HEART: Rate and Rhythm are regular. ABDOMEN: Nontender. EXTREMITITES: No edema. Objective - Vital Signs Vital signs: Vital Signs Temp 97.8 F 05/26/24 08:00 Pulse 64 05/26/24 09:51 Resp 10 L 05/26/24 08:00 BP 179/83 05/26/24 08:00 Pulse Ox 98 05/26/24 00:40 FiO2 Intake & Output 05/25/24 05/26/24 05/26/24 18:59 06:59 18:59 Output Total 1300 Balance -1300 Output: Urine 1300 Uretheral (Husain) 200 Other: Voiding Method Indwelling Catheter Bedside Commode # Voids 2 3 - Labs CBC & Chem 7: 05/25/24 03:28 05/25/24 03:28 Labs: Microbiology - Last 24 Hours (Table) 05/23/24 14:38 Blood Culture - Preliminary Blood Assessment and Plan Plan: Assessment: 1. Hypovolemic hyponatremia with component of poor solute intake as well as SIADH from medications. Sodium level gradually improving - 128 yesterday. Status post D5W and IV DDAVP this admission to avoid rapid correction. TSH 5.2 with normal free T4. Urine sodium 30 and urine osmolality 132. 2. History of COPD. 3. Benign hypertension. Stable. 4. Hypomagnesemia from poor intake. Replaced. Plan: Maintain sodium chloride tab. Advised patient to maintain fluid restriction of less than 50 to 55 ounces per day. Encouraged oral intake, particularly protein. Increase dose of lisinopril if blood pressure staying persistently above 140/90. Repeat BMP and magnesium level 2 to 3 days postdischarge. Follow-up outpatient in 1 week.
[2024-05-26 10:27] LABS: Blood Urea Nitrogen 7.6 mg/dL (9.0-27.0); Calcium 9.1 mg/dL (8.7-10.3); Carbon Dioxide 30.8 mmol/L (21.6-31.8); Chloride 94 mmol/L (96-109); Glucose 84 mg/dL (70-110); Potassium 5.2 mmol/L (3.5-5.5); Sodium 132 mmol/L (135-145)
--- NOTE | 2024-05-26 12:22 | P.PN ---
Subjective Progress Note Date: 05/26/24 This is a 69-year-old female patient is coming into the intensive care unit for severe hyponatremia. The patient's sodium level was 110 and she was feeling extremely weak and she was also complaining of chest discomfort/pain across her entire upper and lower chest and both arms. Based on that, she came into the emergency department. She did complain of shortness of breath which is essentially chronic. She is known to have COPD. Denies having any nausea or emesis. No reported fever. No altered mentation and she continues to communicate. Her sodium level in the emergency department was 110 with a potassium level of 5.4, bicarb of 32, BUN of 8 with a creatinine of 0.3. Calcium level was 8.8, mag was 1.3, lactic acid level was less than 0.5, bilirubin was 0.4, LFTs were normal and proBNP level was 2000. UA showed leukocyte esterase, 23 WBCs, 1 RBC. The white cell count was at 10.3 with a hemoglobin 12.7 and a platelet count of 275. The patient's chest x-ray at the time of admission showed bilateral small effusions, consistent with some CHF and it showed also mild pulm vessel congestion. It showed smaller lung volumes. EKG showed a normal sinus rhythm with LVH. Patient was seen in the emergency, nephrology has been consulted, based on that, the patient was started on normal saline normal saline at rate of 75 cc an hour. Her most recent sodium level came at 115. Urine output is adequate and the patient has a Husain catheter in place. She has been maintained on various medication outpatient basis including Seroquel, Effexor and and Zyprexa. Urine studies are still pending for now. The patient is known to have multiple hospitalizations in the past. She is known to have COPD, CHF, fibromyalgia, hypertension, hypothyroidism, and chronic anxiety. She has not also previous hospitalization related to COVID-19 infection with secondary hypoxic respiratory failure and the patient was in the hospital for COVID-19 related complications approximately a month ago. She was discharged from the hospital on 04/24/2024 with normal sodium level. She also has previous history of right leg wound that required debridement and was positive for MRSA and Pseudomonas. On 05/23/2024, patient is being seen for a follow-up. The patient is calm and comfortable. The patient was showing improvement in her sodium level which turned out to be as high as 119 from a baseline of 110. The patient was given DDAVP and IV fluids have been discontinued. No new complaints. Sodium level is at 116 in follow-up. Chloride is 87. BUN is 40 mg of 0.2. The urine osmolality was 132 with a urine sodium level of 30. Obviously, this is not consistent with SIADH. The white cell count is at 10.3 with a hemoglobin 4.7 and a platelet count of 275. Will consult psychiatry to make adjustments on the patient psychiatric medications. She remains hemodynamically stable. On 05/24/2024, the patient is being seen for a follow-up. The patient is doing well. No specific complaints. Producing adequate amount of urine output. Awake and alert and communicating. The sodium level from today is at 123. Chloride is 89, BUN 6 with a creatinine of 0.3. The white cell count is at 9.8. The patient was seen by psychiatry and the Ashwin and the Seroesaul at the discontinued. The patient is currently on Klonopin, Depakote, Lamictal and trazodone and Effexor. No other significant events overnight. The patient has no respite distress on 3 L of oxygen by nasal cannula. 05/25/2024, patient is being seen for a follow-up. Patient is awake and alert. No altered mentation. Sodium levels at 128. Husain catheter in place and she is producing excellent urine output with a negative fluid balance of 3.6 L over the past 24 hours. No other new issues for now. Psychiatric medications been adjusted. Hemodynamically stable. Wound care is being performed to her right lower extremity. She remains on 3 L nasal cannula. No respiratory distress for now. No other significant issues. On today's evaluation of 05/26/2024, the patient sodium levels up to 132. Producing adequate amount of urine output. She is voiding. Husain catheter has been removed. Afebrile and hemodynamically stable. Fluid restriction is still being implemented. Blood pressure was noted to be elevated and the patient's is still on lisinopril with a modified dose of 20 mg p.o. daily. Remains on Symbicort. Remains on DuoNeb treatments [id number]. No other significant events. Objective - Vital Signs Vital signs: Vital Signs Temp 97.8 F 05/26/24 08:00 Pulse 64 05/26/24 09:51 Resp 10 L 05/26/24 08:00 BP 179/83 05/26/24 08:00 Pulse Ox 98 05/26/24 00:40 FiO2 Intake & Output 05/25/24 05/26/24 05/26/24 18:59 06:59 18:59 Intake Total 125 Output Total 1300 Balance -1300 125 Intake: Oral 125 Output: Urine 1300 Uretheral (Husain) 200 Other: Voiding Method Indwelling Catheter Bedside Commode Bedside Commode # Voids 2 3 2 - Exam GENERAL EXAM: Alert, anxious 69-year-old female, on 3 L nasal cannula, fairly c omfortable in no apparent distress. HEAD: Normocephalic. EYES: Normal reaction of pupils, equal size. NOSE: Clear with pink turbinates. THROAT: No erythema or exudates. NECK: No masses, no JVD. CHEST: No chest wall deformity. LUNGS: Equal air entry with bilateral scattered rhonchi. CVS: S1 and S2 normal with no audible murmur, regular rhythm. ABDOMEN: No hepatosplenomegaly, normal bowel sounds, no guarding or rigidity. SPINE: No scoliosis or deformity SKIN: No rashes, healing wound in the right hogan, no active drainage or abscess CENTRAL NERVOUS SYSTEM: No focal deficits, tone is normal in all 4 extremities. EXTREMITIES: There is no peripheral edema. No clubbing, no cyanosis. Peripheral pulses are intact. - Labs CBC & Chem 7: 05/25/24 03:28 05/26/24 04:50 Labs: Abnormal Lab Results - Last 24 Hours (Table) 05/26/24 Range/Units 04:50 Sodium 132 L (135-145) mmol/L Chloride 94 L (96-109) mmol/L BUN 7.6 L (9.0-27.0) mg/dL Creatinine 0.4 L (0.6-1.5) mg/dL Microbiology - Last 24 Hours (Table) 05/23/24 14:38 Blood Culture - Preliminary Blood Assessment and Plan Plan: Acute hypochloremic hyponatremia, improving and a sodium level is up to 132, producing excellent urine output with a negative fluid balance COVID-19 infection requiring recent hospitalization for an acute on top of chronic hypoxic respiratory failure, discharged from hospital approximately 4 weeks ago Chronic hypoxemic respiratory failure, Advanced COPD, stable, on home oxygen ar 3 liters/min Bipolar disorder with anxiety Fibromyalgia History of chronic tobacco dependence Hypothyroidism History of hypertension History of marijuana use Right lower extremity wound at the level of her hogan, healing. No signs of any acute or ongoing infection at this point Cervical spinal stenosis Scoliosis Irritable bowel syndrome History of colonic polyps Previous history of urine tract infection with Enterococcus History of gastric bypass surgery Plan: IV fluids to KVO Fluid restriction Sodium level is improved, level is up to 132 No altered mentation Consult nephrology is appreciated Titrate the FiO2 as tolerated, currently on 3 L Educated regarding the importance of smoking cessation NicoDerm patch has been offered Continue Lamictal and Depakote Continue the combination Effexor and trazodone Consult psychiatry is appreciated Consult wound care nurse Krystle
[2024-05-26 13:11] VITALS: BP 126/67; RESP 14; TEMP 98.4
[2024-05-26 13:12] VITALS: PULSE 71
[2024-05-26 13:45] VITALS: BMI 30.8
== END 2024-05-26 15:56 | disposition home health service (06) | DRG 644 ==
LOC: EC 09:53 → 2SICU 14:20 → 4SSUR 05-24 16:21
PROVIDERS: ADMIT Internal Medicine; ATTEND Internal Medicine
DX: E22.2 Syndrome of inappropriate secretion of antidiuretic hormone (principal); J96.11 Chronic respiratory failure with hypoxia; L97.912 Non-pressure chronic ulcer of unspecified part of right lower leg with fat layer exposed; E86.1 Hypovolemia; J44.9 Chronic obstructive pulmonary disease, unspecified; E83.42 Hypomagnesemia; Z86.16 Personal history of COVID-19; F41.0 Panic disorder [episodic paroxysmal anxiety]; F31.9 Bipolar disorder, unspecified; M50.30 Other cervical disc degeneration, unspecified cervical region; F12.10 Cannabis abuse, uncomplicated; I50.9 Heart failure, unspecified; I11.0 Hypertensive heart disease with heart failure; M79.7 Fibromyalgia; M19.90 Unspecified osteoarthritis, unspecified site; Z79.84 Long term (current) use of oral hypoglycemic drugs; Z88.2 Allergy status to sulfonamides; E87.8 Other disorders of electrolyte and fluid balance, not elsewhere classified; Z98.84 Bariatric surgery status; M48.02 Spinal stenosis, cervical region; E03.9 Hypothyroidism, unspecified; F17.210 Nicotine dependence, cigarettes, uncomplicated; M41.9 Scoliosis, unspecified; Z79.51 Long term (current) use of inhaled steroids; Z79.890 Hormone replacement therapy; Z79.899 Other long term (current) drug therapy; Z82.49 Family history of ischemic heart disease and other diseases of the circulatory system; Z86.0100 Personal history of colon polyps, unspecified; Z86.711 Personal history of pulmonary embolism; Z90.710 Acquired absence of both cervix and uterus; Z98.42 Cataract extraction status, left eye; Z90.49 Acquired absence of other specified parts of digestive tract; Z87.440 Personal history of urinary (tract) infections; Z87.19 Personal history of other diseases of the digestive system; Z86.14 Personal history of Methicillin resistant Staphylococcus aureus infection
CPT/HCPCS: 36415; 71046; 80048; 80053; 81001; 83519; 83605; 83735; 83880; 83930; 83935; 84145; 84295; 84300; 84439; 84443; 84484; 85025; 85610; 85730; 87040; 87449; 93005; 94640; 94760; 96365; 96366; 96367; 96368; 96375; 96376; 99291

== ENCOUNTER → 2024-05-29 | Outpatient (CLI) | payer MEDICARE ==
[2024-05-29 15:33] LABS: Magnesium 1.9 mg/dL (1.5-2.4)
[2024-05-29 15:45] LABS: Basophils # (A) 0.08 X 10*3/uL (0.00-0.10); Basophils % (A) 0.9 %; Eosinophils # (A) 0.14 X 10*3/uL (0.04-0.35); Eosinophils % (A) 1.5 %; HCT 33.3 % (37.2-46.3); HGB 10.4 g/dL (12.0-15.0); Lymphocytes # (A) 1.84 X 10*3/uL (0.90-5.00); MCH 31.6 pg (27.0-32.0); MCHC 31.2 g/dL (32.0-37.0); MCV 101.2 FL (80.0-97.0); Mean Platelet Volume 9.7 FL (9.5-12.2); Monocytes # (A) 0.82 X 10*3/uL (0.20-1.00); Monocytes % (A) 8.9 %; NRBC Per 100 WBC 0 X 10*3/uL (0.00-0.01); Neutrophils # (A) 6.28 X 10*3/uL (1.80-7.70); Neutrophils % (A) 68.5 %; Platelet Count 224 X 10*3/uL (140-440); RBC 3.29 X 10*6/uL (4.10-5.20); RDW 13.1 % (11.5-14.5); WBC 9.18 X 10*3/uL (4.50-10.00)
[2024-05-29 16:03] LABS: ALT 29 U/L (8-44); AST 29 U/L (13-35); Albumin 3.9 g/dL (3.8-4.9); Albumin/Globulin Ratio 2.29 Ratio (1.60-3.17); Alkaline Phosphatase 71 U/L (41-126); BUN/Creat Ratio 37.33 Ratio (12.00-20.00); Blood Urea Nitrogen 22.4 mg/dL (9.0-27.0); Calcium 9.6 mg/dL (8.7-10.3); Carbon Dioxide 30.5 mmol/L (21.6-31.8); Chloride 95 mmol/L (96-109); Globulin 1.7 g/dL (1.6-3.3); Glucose 91 mg/dL (70-110); Potassium 4.5 mmol/L (3.5-5.5); Sodium 134 mmol/L (135-145); Total Bilirubin <0.2 mg/dL (0.3-1.2); Total Protein 5.6 g/dL (6.2-8.2)
== END | disposition home or self-care (01) ==
LOC: LABWHC1 11:52
PROVIDERS: ATTEND Registered Nurse
DX: D64.9 Anemia, unspecified (principal); E87.1 Hypo-osmolality and hyponatremia
CPT/HCPCS: 36415; 80053; 83735; 85025

== ENCOUNTER 2024-05-30 13:24 | Emergency (ER) | payer MEDICARE ==
[2024-05-30 14:26] LABS: Basophils % (A) 1 %; Eosinophils # (A) 0.2 k/uL (0-0.7); Eosinophils % (A) 3 %; HCT 33.7 % (34.0-46.0); Lymphocytes # (A) 1.9 k/uL (1.0-4.8); Lymphocytes % (A) 26 %; MCH 32.4 pg (25.0-35.0); MCHC 32.6 g/dL (31.0-37.0); MCV 99.5 fL (80.0-100.0); Mean Platelet Volume 7.3; Monocytes # (A) 0.6 k/uL (0-1.0); Monocytes % (A) 8 %; Neutrophils # (A) 4.4 k/uL (1.3-7.7); Neutrophils % (A) 61 %; Platelet Count 210 k/uL (150-450); RBC 3.39 m/uL (3.80-5.40); RDW 12.9 % (11.5-15.5); WBC 7.3 k/uL (3.8-10.6)
[2024-05-30 14:41] LABS: ALT 30 U/L (4-34); African American GFR (CKD) >90 (>60 ml/min/1.73 sqM); Albumin 3.2 g/dL (3.5-5.0); Anion Gap -2 mmol/L; Blood Urea Nitrogen 23 mg/dL (7-17); Calcium 8.8 mg/dL (8.4-10.2); Carbon Dioxide 33 mmol/L (22-30); Chloride 96 mmol/L (98-107); Glucose 93 mg/dL (74-99); Non-African American GFR(CKD) >90 (>60 ml/min/1.73 sqM); Sodium 127 mmol/L (137-145); Total Bilirubin 0.4 mg/dL (0.2-1.3); Total Protein 5.5 g/dL (6.3-8.2)
[2024-05-30 14:44] LABS: INR 0.9 (<1.2); Partial Thromboplastin Time 25.7 sec (22.0-30.0); Prothrombin Time 10.2 sec (10.0-12.5)
--- NOTE | 2024-05-30 14:56 | XR ---
EXAMINATION TYPE: XR chest 2V DATE OF EXAM: 05/30/2024 2:31 PM COMPARISON: Chest radiographs from 05/22/2024 CLINICAL INDICATION: Female, 69 years old with history of Chest Pain; TECHNIQUE: XR chest 2V Frontal and lateral views of the chest. FINDINGS: Lungs/Pleura: Right basilar atelectasis with small right pleural effusion. There is no evidence of le ft pleural effusion, focal consolidation, or pneumothorax. Pulmonary vascularity: Unremarkable. Heart/mediastinum: Cardiomediastinal silhouette is prominent in size. Musculoskeletal: No acute osseous pathology. IMPRESSION: Small right pleural effusion with associated atelectasis. [facility], , 05/30/2024 2:54 PM
[2024-05-30 14:59] LABS: AST 52 U/L (14-36); Alkaline Phosphatase 47 U/L (38-126); Magnesium 1.8 mg/dL (1.6-2.3); Potassium 5.1 mmol/L (3.5-5.1)
[2024-05-30] MEDS: MORPHINE SULFATE 4 MG/ML SYRINGE IVP STA (15:17)
[2024-05-30 15:25] VITALS: RESP 16
[2024-05-30] MEDS: LORazepam 2 MG/ML INJ IV STA (15:30)
--- NOTE | 2024-05-30 15:51 | ED ---
Chest Pain HPI - General Chief Complaint: Chest Pain Stated Complaint: Chest pain,Nausea Time Seen by Provider: 05/30/24 13:36 Source: patient Mode of arrival: wheelchair Limitations: no limitations - History of Present Illness Initial Comments: 69-year-old female with past medical history of anxiety who presents to the emergency department for chest pain. Patient is well-known to the emergency department for this complaint that she has been hospitalized several times for the same thing. She reports to neck pain radiating into her chest. She has had thorough cardiac workup which determined it was not cardiac etiology. Patient does have chronic neck pain but has yet to follow-up in the orthopedic office patient arrives very anxious. States that her pain is out of control. Admits to associated shortness of breath. Patient does wear chronic home O2. She admits to nausea. No vomiting. Denies any abdominal pain. No other alleviating, precipitating modifying factors - Related Data Home Medications Medication Instructions Recorded Confirmed Montelukast [Singulair] 10 mg PO HS 12/17/13 06/09/24 Levothyroxine Sodium [Synthroid] 150 mcg PO DAILY 03/29/20 06/09/24 Budesonide/Formoterol Fumarate 2 puff INHALATION RT-BID 06/12/21 06/09/24 [Symbicort 160-4.5 Mcg Inhaler] Famotidine [Pepcid] 20 mg PO BID 09/03/21 06/09/24 Tamsulosin [Flomax] 0.4 mg PO DAILY 10/26/21 06/09/24 Ipratropium-Albuterol Nebulize 3 ml INHALATION RT-QID PRN 11/13/22 06/09/24 [Duoneb 0.5 mg-3 mg/3 ml Soln] Ibandronate Sodium [Boniva] 150 mg PO Q30D 05/03/23 06/09/24 clonazePAM [KlonoPIN ODT] 0.25 mg PO HS 12/12/23 06/09/24 lamoTRIgine [LaMICtal] 100 mg PO BID 03/18/24 06/09/24 lisinopriL [Prinivil] 20 mg PO DAILY 04/21/24 06/09/24 Metoprolol Tartrate [Lopressor] 25 mg PO BID 05/16/24 06/09/24 Gabapentin 300 mg PO TID 06/01/24 06/09/24 busPIRone HCL [Buspar] 30 mg PO BID 06/09/24 06/09/24 Previous Rx's Medication Instructions Recorded Albuterol Inhaler [Ventolin Hfa 2 puff INHALATION RT-QID PRN #1 11/17/22 Inhaler] each Pyridoxine [Vitamin B-6] 50 mg PO DAILY #30 tab 03/28/24 Divalproex ER [Depakote ER] 250 mg PO BID #60 tab 05/26/24 OLANZapine [ZyPREXA] 5 mg PO HS #30 tab 05/26/24 Sodium Chloride Tab 1 gm PO DAILY #30 tab 05/26/24 Venlafaxine HCl ER [Effexor XR] 75 mg PO DAILY #30 cap 05/26/24 Acetaminophen Tab [Tylenol] 650 mg PO Q6HR PRN tab 06/02/24 HYDROcodone/APAP 5-325MG [[place] 1 tab PO Q6HR PRN 3 Days #12 tab 06/07/24 5-325] Cyclobenzaprine [Flexeril] 10 mg PO TID PRN 15 Days #30 tab 06/11/24 Allergies Allergy/AdvReac Type Severity Reaction Status Date / Time codeine Allergy Unknown Verified 06/09/24 12:55 Childhood Penicillins Allergy Rash/Hives Verified 06/09/24 12:55 Sulfa (Sulfonamide Allergy Rash/Hives Verified 06/09/24 12:55 Antibiotics) Review of Systems ROS Statement: Those systems with pertinent positive or pertinent negative responses have been documented in the HPI. ROS Other: All systems not noted in ROS Statement are negative. Past Medical History Past Medical History: Asthma, Heart Failure, COPD, Fibromyalgia, GERD/Reflux, Hypertension, Osteoarthritis (OA), Pneumonia, Pulmonary Embolus (PE), Skin Disorder, Thyroid Disorder Additional Past Medical History / Comment(s): Spinal Stenosis, Cervical disc disease/stenosis, scoliosis, recently having numbness/tingling L side of face/neck, recently saw director of revenue for L hemidiaphragmatic elevation-pt states she was told this was probably genetic, recently bronchitis and past bronchitis, pt states recent med change (water pill) d/t electrolyte problem/kidney function being affected, pt states she has had pulmonary emboli, past bilateral lower extremity cellulitis, edema lower extremities, IBS, hemorrhoids, benign colon polyps, sinus problems, UTIs, bacteremia/sepsis, cardiac murmur, past L ankle and L wrist fractures. History of Any Multi-Drug Resistant Organisms: MRSA Date of last positivie culture/infection: 03/2024 MDRO Source:: Knee Past Surgical History: Bariatric Surgery, Section, Cholecystectomy, Hysterectomy, Tonsillectomy Additional Past Surgical History / Comment(s): EGD, colonoscopies, gastric bypass, surgery for deviated septum, left cataract removal (having laser procedure on that eye 11/24/23) Past Anesthesia/Blood Transfusion Reactions: Previous Problems w/ Anesthesia Additional Past Anesthesia/Blood Transfusion Reaction / Comment(s): itching after hysterectomy, some kind of breathing problem after gastric bypass-not sure what happened Past Psychological History: Anxiety, Bipolar, Depression, Panic Disorder Smoking Status: Current every day smoker Past Alcohol Use History: None Reported Past Drug Use History: Marijuana - Past Family History Mother Family Medical History: Congestive Heart Failure (CHF), Hypertension Father History Unknown: Yes Additional Family Medical History / Comment(s): Father at the age of 45 yrs d/t having had rheumatic fever as a child and heart valve disease. General Exam Limitations: no limitations General appearance: alert, anxious Head exam: Present: atraumatic, normocephalic, normal inspection Eye exam: Present: normal appearance, PERRL, EOMI. Absent: scleral icterus, conjunctival injection, periorbital swelling ENT exam: Present: normal exam, mucous membranes moist Neck exam: Present: normal inspection. Absent: tenderness, meningismus, lymphadenopathy Respiratory exam: Present: normal lung sounds bilaterally. Absent: respiratory distress, wheezes, rales, rhonchi, stridor Cardiovascular Exam: Present: regular rate, normal rhythm, normal heart sounds. Absent: systolic murmur, diastolic murmur, rubs, gallop, clicks GI/Abdominal exam: Present: soft, normal bowel sounds. Absent: distended, tenderness, guarding, rebound, rigid Extremities exam: Present: normal inspection, full ROM, normal capillary refill. Absent: tenderness, pedal edema, joint swelling, calf tenderness Back exam: Present: normal inspection Neurological exam: Present: alert, oriented X3, CN II-XII intact Psychiatric exam: Present: normal affect, normal mood Skin exam: Present: warm, dry, intact, normal color. Absent: rash Course Vital Signs 05/30/24 05/30/24 05/30/24 13:29 14:04 14:31 Temperature 98.3 F Pulse Rate 70 93 Pulse Rate [ 76 Claims Investigator ] Respiratory 20 16 Rate Blood Pressure 163/70 142/93 O2 Sat by Pulse 90 L 94 L Oximetry 05/30/24 16:58 Temperature 98 F Pulse Rate 70 Pulse Rate [ Claims Investigator ] Respiratory 16 Rate Blood Pressure 139/66 O2 Sat by Pulse 96 Oximetry Chest Pain MDM - MDM Was pt. sent in by a medical professional or institution (, PA, FACTORY WORKER, urgent care, hospital, or fpc...) When possible be specific @ -No Did you speak to anyone other than the patient for history (EMS, parent, family, police, friend...)? What history was obtained from this source @ -Spoke with son for history Did you review nursing and triage notes (agree or disagree)? Why? @ -I reviewed and agree with nursing and triage notes Were old charts reviewed (outside hosp., previous admission, EMS record, old EKG, old radiological studies, urgent care reports/EKG's, fpc records)? Report findings @ -No old charts were reviewed Differential Diagnosis (chest pain, altered mental status, abdominal pain women, abdominal pain men, vaginal bleeding, weakness, fever, dyspnea, syncope, headache, dizziness, GI bleed, back pain, seizure, CVA, palpatations, mental health, musculoskeletal)? @ -Differential Chest Pain: Stable Angina, Unstable Angina, STEMI, NSTEMI Aortic Dissection, Pneumothorax, Musculoskeletal, Esophageal Spasm GERD, Cholecystitis, Pancreatitis, Zoster, this is not meant to be an all-inclusive list. EKG interpreted by me (3pts min.). @ -Yes and demonstrates sinus rhythm with a rate of 65. HI interval 196. QRS 117. QTc of 393. No acute ST segment elevations. X-rays interpreted by me (1pt min.). @ -Yes and demonstrates no acute process CT interpreted by me (1pt min.). @ -None done U/S interpreted by me (1pt. min.). @ -None done What testing was considered but not performed or refused? (CT, X-rays, U/S, labs)? Why? @ -None What meds were considered but not given or refused? Why? @ -None Did you discuss the management of the patient with other professionals (professionals i.e. Dr., PA, FACTORY WORKER, lab, RT, psych nurse, 7th grade social studies teacher, information security architect, teacher, aoc director combat plans officer, case reviewer)? Give summary @ -No Was smoking cessation discussed for >3mins.? @ -No Was critical care preformed (if so, how long)? @ -No Were there social determinants of health that impacted care today? How? (H omelessness, low income, unemployed, alcoholism, drug addiction, transportation, low edu. Level, literacy, decrease access to med. care, intermediate, rehab)? @ -No Was there de-escalation of care discussed even if they declined (Discuss DNR or withdrawal of care, Hospice)? DNR status @ -No What co-morbidities impacted this encounter? (DM, HTN, Smoking, COPD, CAD, Cancer, CVA, ARF, Chemo, Hep., AIDS, mental health diagnosis, sleep apnea, morbid obesity)? @ -Anxiety, hypertension Was patient admitted / discharged? Hospital course, mention meds given and route, prescriptions, significant lab abnormalities, going to OR and other pertinent info. @ -Upon arrival patient seen and evaluated in room 19. Thorough history and physical exam performed. IV was established. Laboratory studies are conducted and chest x-ray was performed. Laboratory studies are at the patient's baseline. She was given pain control. She feels improved at this time. She will be discharged home and instructed to follow-up with her primary care doctor and feeder operator automatic. Also recommended follow-up with Dr. Alex. Patient agreeable and discharged home in stable condition Undiagnosed new problem with uncertain prognosis? @ -No Drug Therapy requiring intensive monitoring for toxicity (Heparin, Nitro, Insulin, Cardizem)? @ -No Were any procedures done? @ -No Diagnosis/symptom? @ -Acute on chronic neck pain, acute on chronic chest pain Acute, or Chronic, or Acute on Chronic? @ -Chronic Uncomplicated (without systemic symptoms) or Complicated (systemic symptoms)? @ -[Complicated Side effects of treatment? @ -No Exacerbation, Progression, or Severe Exacerbation? @ -Yes Poses a threat to life or bodily function? How? (Chest pain, [place], [place], pneumonia, PE, COPD, DKA, ARF, appy, cholecystitis, CVA, Diverticulitis, Homicidal, Suicidal, threat to staff... and all critical care pts) @ -No Disposition Clinical Impression: Chronic chest pain, Chronic hyponatremia Disposition: HOME SELF-CARE Condition: Stable Instructions (If sedation given, give patient instructions): Chest Pain (ED) Additional Instructions: Please follow-up with your primary care doctor at your scheduled appointment tomorrow. I recommend that they repeat your salt levels. Continue taking your salt tablets as they are directed. If you have continued pain in your neck, that may warrant an MRI. Return to the emergency department any new or worsening symptoms Is patient prescribed a controlled substance at d/c from ED?: No Referrals: Andrzej Wheeler MD [Primary Care Provider] - 1-2 days Time of Disposition: 16:31
[2024-05-30 17:00] VITALS: BP 139/66; PULSE 70; TEMP 98
== END 2024-05-30 16:59 | disposition home or self-care (01) ==
LOC: EC 13:24
DX: G89.29 Other chronic pain (principal); R07.9 Chest pain, unspecified; E87.1 Hypo-osmolality and hyponatremia; M54.2 Cervicalgia; F41.9 Anxiety disorder, unspecified; I11.0 Hypertensive heart disease with heart failure; I50.9 Heart failure, unspecified; F17.200 Nicotine dependence, unspecified, uncomplicated; Z79.899 Other long term (current) drug therapy; Z88.0 Allergy status to penicillin; Z88.2 Allergy status to sulfonamides; Z88.5 Allergy status to narcotic agent
CPT/HCPCS: 36415; 93005; 83880; 80053; 83735; 84484; 85025; 85610; 85730; 71046; 99285; 96374; 96375; J2060; J2270

== ENCOUNTER 2024-06-01 09:18 | Observation (INO) | payer MEDICARE ==
--- NOTE | 2024-06-01 09:55 | ED ---
Chest Pain HPI - General Chief Complaint: Shortness of Breath Stated Complaint: chest burning Time Seen by Provider: 06/01/24 09:31 Source: patient, RN notes reviewed Mode of arrival: wheelchair Limitations: no limitations - History of Present Illness Initial Comments: This is a 69-year-old female who presents to the emergency department for chest pain and burning. States for the last several days she has had intermittent burning in her chest that radiates down both arms and into her hands. Patient states "I feel like I am on fire". She was evaluated here for this a couple of days ago as well and discharged home. However, in further conversation with the patient she then describes her chest pain as a pressure. Denies any history of heart attacks or stents. Reports a small increase in shortness of breath. She is oxygen dependent due to COPD. She also feels nauseous and complains of a headache and neck pain. States that she is unable to sleep because of the pain and feels very fatigued as a result of this as well. MD Complaint: chest pain - Related Data Home Medications Medication Instructions Recorded Confirmed Montelukast [Singulair] 10 mg PO HS 12/17/13 06/01/24 Levothyroxine Sodium [Synthroid] 150 mcg PO DAILY 03/29/20 06/01/24 Budesonide/Formoterol Fumarate 2 puff INHALATION RT-BID 06/12/21 06/01/24 [Symbicort 160-4.5 Mcg Inhaler] Famotidine [Pepcid] 20 mg PO BID 09/03/21 06/01/24 Tamsulosin [Flomax] 0.4 mg PO DAILY 10/26/21 06/01/24 Ipratropium-Albuterol Nebulize 3 ml INHALATION RT-QID PRN 11/13/22 06/01/24 [Duoneb 0.5 mg-3 mg/3 ml Soln] Ibandronate Sodium [Boniva] 150 mg PO Q30D 05/03/23 06/01/24 clonazePAM [KlonoPIN ODT] 0.25 mg PO HS 12/12/23 06/01/24 lamoTRIgine [LaMICtal] 100 mg PO BID 03/18/24 06/01/24 lisinopriL [Prinivil] 20 mg PO DAILY 04/21/24 06/01/24 Metoprolol Tartrate [Lopressor] 25 mg PO BID 05/16/24 06/01/24 Gabapentin 300 mg PO TID 06/01/24 06/01/24 Previous Rx's Medication Instructions Recorded Albuterol Inhaler [Ventolin Hfa 2 puff INHALATION RT-QID PRN #1 11/17/22 Inhaler] each Pyridoxine [Vitamin B-6] 50 mg PO DAILY #30 tab 03/28/24 Divalproex ER [Depakote ER] 250 mg PO BID #60 tab 05/26/24 OLANZapine [ZyPREXA] 5 mg PO HS #30 tab 05/26/24 Sodium Chloride Tab 1 gm PO DAILY #30 tab 05/26/24 Venlafaxine HCl ER [Effexor XR] 75 mg PO DAILY #30 cap 05/26/24 Allergies Allergy/AdvReac Type Severity Reaction Status Date / Time codeine Allergy Unknown Verified 06/01/24 12:02 Childhood Penicillins Allergy Rash/Hives Verified 06/01/24 12:02 Sulfa (Sulfonamide Allergy Rash/Hives Verified 06/01/24 12:02 Antibiotics) Review of Systems ROS Statement: Those systems with pertinent positive or pertinent negative responses have been documented in the HPI. ROS Other: All systems not noted in ROS Statement are negative. Past Medical History Past Medical History: Asthma, Heart Failure, COPD, Fibromyalgia, GERD/Reflux, Hypertension, Osteoarthritis (OA), Pneumonia, Pulmonary Embolus (PE), Skin Disorder, Thyroid Disorder Additional Past Medical History / Comment(s): Spinal Stenosis, Cervical disc disease/stenosis, scoliosis, recently having numbness/tingling L side of face/neck, recently saw extruder for L hemidiaphragmatic elevation-pt states she was told this was probably genetic, recently bronchitis and past bronchitis, pt states recent med change (water pill) d/t electrolyte problem/kidney function being affected, pt states she has had pulmonary emboli, past bilateral lower extremity cellulitis, edema lower extremities, IBS, hemorrhoids, benign colon polyps, sinus problems, UTIs, bacteremia/sepsis, cardiac murmur, past L ankle and L wrist fractures. History of Any Multi-Drug Resistant Organisms: MRSA Date of last positivie culture/infection: 03/2024 MDRO Source:: Knee Past Surgical History: Bariatric Surgery, Section, Cholecystectomy, Hysterectomy, Tonsillectomy Additional Past Surgical History / Comment(s): EGD, colonoscopies, gastric bypass, surgery for deviated septum, left cataract removal (having laser procedure on that eye 11/24/23) Past Anesthesia/Blood Transfusion Reactions: Previous Problems w/ Anesthesia Additional Past Anesthesia/Blood Transfusion Reaction / Comment(s): itching after hysterectomy, some kind of breathing problem after gastric bypass-not sure what happened Past Psychological History: Anxiety, Bipolar, Depression, Panic Disorder Smoking Status: Current every day smoker Past Alcohol Use History: None Reported Past Drug Use History: Marijuana - Past Family History Mother Family Medical History: Congestive Heart Failure (CHF), Hypertension Father History Unknown: Yes Additional Family Medical History / Comment(s): Father at the age of 45 yrs d/t having had rheumatic fever as a child and heart valve disease. General Exam Limitations: no limitations General appearance: alert, in no apparent distress Head exam: Present: atraumatic, normocephalic, normal inspection Respiratory exam: Present: rales, decreased breath sounds, prolonged expiratory Cardiovascular Exam: Present: regular rate, normal rhythm, normal heart sounds. Absent: systolic murmur, diastolic murmur, rubs, gallop, clicks Neurological exam: Present: alert, oriented X3, CN II-XII intact Psychiatric exam: Present: normal affect, normal mood Skin exam: Present: warm, dry, intact, normal color. Absent: rash Course Vital Signs 06/01/24 06/01/24 06/01/24 09:21 10:13 11:25 Temperature 98.6 F Pulse Rate 69 60 61 Respiratory 20 18 18 Rate Blood Pressure 160/78 137/62 120/56 O2 Sat by Pulse 93 L 97 96 Oximetry 06/01/24 06/01/24 13:00 15:19 Temperature Pulse Rate 58 L 61 Respiratory 20 18 Rate Blood Pressure 137/58 137/58 O2 Sat by Pulse 98 96 Oximetry Chest Pain MDM - MDM This is a 69-year-old female who presents to the emergency department for chest pain. Was pt. sent in by a medical professional or institution? @ -No Did you speak to anyone other than the patient for history? @ -No Did you review nursing and triage notes? @ -Yes, and I agree, it is accurate with regards to the patient's symptoms. Were old charts reviewed? @ -Echocardiogram from 04/10/2024 revealing normal biventricular systolic function. Differential Diagnosis? @ -Differential Chest Pain: Stable Angina, Unstable Angina, STEMI, NSTEMI Aortic Dissection, Pneumothorax, Musculoskeletal, Esophageal Spasm GERD, Cholecystitis, Pancreatitis, Zoster, this is not meant to be an all-inclusive list. EKG interpreted by me (3pts min.)? @ -EKG interpreted by me demonstrating the following: Sinus rhythm. Ventricular rate 65 bpm, PA interval 196 ms, QRS duration 116 ms, QTc 395 ms. X-rays interpreted by me (1pt min.)? @ -Chest x-ray obtained, my interpretation identifies no localized consolidations or infiltrates. CT interpreted by me (1pt min.)? @ -CTA of the chest obtained. My interpretation identifies no evidence of a pulmonary embolus. U/S interpreted by me (1pt. min.)? @ -Not obtained What testing was considered but not performed? (CT, X-rays, U/S, labs)? Why? @ -None What meds were considered but not given? Why? @ -None Did you discuss the management of the patient with other professionals? @ -Yes, Dr. Merchant, who accepts the patient for admission Did you reconcile home meds? @ -Yes Was smoking cessation discussed for >3mins.? @ -I discussed smoking cessation for greater than 3 minutes. The risk of smoking were discussed with the patient including but not limited to risks of cancer, stroke, coronary artery disease and COPD. Also discussed with patient were multiple methods of quitting smoking. Lastly we discussed the financial cost of smoking. Was critical care preformed (if so, how long)? @ -No Were there social determinants of health that impacted care today? How? (Homelessness, low income, unemployed, alcoholism, drug addiction, transportation, low edu. Level, literacy, decrease access to med. care, fci, rehab)? @ -No Was there de-escalation of care discussed even if they declined? (Discuss DNR or withdrawal of care, Hospice)? @ -No What co-morbidities impacted this encounter? (DM, HTN, Smoking, COPD, CAD, Cancer, CVA, Hep., AIDS, mental health diagnosis, sleep apnea, morbid obesity)? @ -Asthma, COPD, CHF, GERD, HTN, Smoking Was patient admitted / discharged? @ -Admitted. Lab work demonstrates an elevated D-dimer of 1.01. She has hyponatremia with a sodium of 128 which is a chronic and recurrent issue for the patient. BNP elevated at 1240. CTA of the chest reveals no evidence of a pulmonary embolus or other acute process. Findings are stable when compared with prior imaging. Patient's symptoms were difficult to control in the emergency department. She continued to complain of chest pain and pressure. She describes this first as a burning sensation and then a pressure-like sensation. She had an echocardiogram in March, however she was not having any chest pain at that time, states that she was having problems with her heart rate. She does not know when she last had a stress test. Due to patient's multiple cardiac risk factors, she was admitted to medicine for chest pain rule out. Serial troponins ordered and consult was placed for cardiology. Case discussed with ED attending Dr. Ramírez. Undiagnosed new problem with uncertain prognosis? @ -None Drug Therapy requiring intensive monitoring for toxicity (Heparin, Nitro, Insulin, Cardizem)? @ -None Were any procedures done? @ -None Diagnosis/symptom? @ -Chest pain Acute, or Chronic, or Acute on Chronic? @ -Acute Uncomplicated (without systemic symptoms) or Complicated (systemic symptoms)? @ -Complicated Side effects of treatment? @ -None Exacerbation, Progression, or Severe Exacerbation] @ -Not applicable Poses a threat to life or bodily function? @ -Yes, if due to ACS it can be life threatening Disposition Clinical Impression: Chest pain, Nicotine dependence Disposition: ADMITTED IP TO THIS HOSP
[2024-06-01] MEDS: KETOROLAC 15 MG/ML 1 ML VIAL IVP STA (10:09)
[2024-06-01] MEDS: HYDROmorphone 1 MG/ML 1 ML SYRINGE IVP STA ×2 (10:11→13:03)
[2024-06-01 10:21] LABS: Basophils # (A) 0.1 k/uL (0-0.2); Basophils % (A) 1 %; Eosinophils # (A) 0.1 k/uL (0-0.7); Eosinophils % (A) 2 %; HCT 35.2 % (34.0-46.0); HGB 10.9 gm/dL (11.4-16.0); Lymphocytes # (A) 1.6 k/uL (1.0-4.8); Lymphocytes % (A) 26 %; MCH 30.9 pg (25.0-35.0); MCHC 31.1 g/dL (31.0-37.0); MCV 99.4 fL (80.0-100.0); Mean Platelet Volume 6.9; Monocytes # (A) 0.5 k/uL (0-1.0); Monocytes % (A) 8 %; Neutrophils # (A) 3.7 k/uL (1.3-7.7); Neutrophils % (A) 61 %; Platelet Count 229 k/uL (150-450); RBC 3.54 m/uL (3.80-5.40); RDW 13.1 % (11.5-15.5); WBC 6.1 k/uL (3.8-10.6)
[2024-06-01] MEDS: MAG HYDROX/AL HYDROX/SIMETH 30 ML, HYOSCYAMINE ELIXIR 10 ML PO STA (10:24)
[2024-06-01 10:35] LABS: ALT 28 U/L (4-34); AST 34 U/L (14-36); African American GFR (CKD) >90 (>60 ml/min/1.73 sqM); Albumin 3.5 g/dL (3.5-5.0); Alkaline Phosphatase 64 U/L (38-126); Anion Gap -1 mmol/L; Blood Urea Nitrogen 17 mg/dL (7-17); Calcium 9.1 mg/dL (8.4-10.2); Carbon Dioxide 34 mmol/L (22-30); Chloride 95 mmol/L (98-107); Glucose 85 mg/dL (74-99); Magnesium 1.8 mg/dL (1.6-2.3); Non-African American GFR(CKD) >90 (>60 ml/min/1.73 sqM); Sodium 128 mmol/L (137-145); Total Bilirubin 0.2 mg/dL (0.2-1.3); Total Protein 5.7 g/dL (6.3-8.2)
[2024-06-01 10:38] LABS: INR 0.9 (<1.2); Partial Thromboplastin Time 27.1 sec (22.0-30.0); Prothrombin Time 10.4 sec (10.0-12.5)
[2024-06-01 10:44] LABS: NT-Pro-B-Type Natriuretic Pept 1240 pg/mL
--- NOTE | 2024-06-01 13:02 | CT ---
EXAMINATION TYPE: CT chest angio for PE CT DLP: 307.6 mGycm, Automated exposure control for dose reduction was used. DATE OF EXAM: 06/01/2024 12:42 PM COMPARISON: Chest radiograph 06/01/2024, CTA chest 04/03/2024, CT chest 05/05/2023, 07/21/2019, 07/10/20, 07/07/2018 CLINICAL INDICATION:Female, 69 years old with history of Chest pain, ИВАН, elevated d-dimer; chest ronel n and ИВАН TECHNIQUE/CONTRAST: CTA scan of the thorax is performed with IV Contrast, patient injected with 100 mL of Isovue 370, pul monary embolism protocol. MIP images are created and reviewed. FINDINGS: Pulmonary Artery: There is no evidence for a filling defect within the pulmonary vasculature to sugge st acute pulmonary embolism. The pulmonary artery is of normal size. Reflux of contrast into the IV C and hepatic veins. Lungs/Pleura: No pneumothorax. Trace right pleural effusion. Elevation of the left hemidiaphragm. Sim ilar regions of linear scarring or atelectasis within the right mid and lower lung. Airway: Large airways are patent. Heart: The heart is mildly enlarged for size.. No pericardial effusion. Coronary artery calcification s. Vasculature: No evidence of aortic aneurysm. Mediastinum: Stable enlarged 1.5 cm right paratracheal lymph node (series 401, image 50). Stable enla rged right hilar lymph node measuring 2.0 cm (series 401, image 61). Musculoskeletal: No acute osseous abnormalities. Moderate multilevel degenerative disc disease. S-sha ped scoliotic curvature of the thoracolumbar spine. Soft Tissues: Unremarkable. Lower neck: Redemonstration of hypodense 1.8 cm right thyroid nodule.. Upper Abdomen: Postsurgical changes from Jennifer-en-Y gastric bypass. Post cholecystectomy changes with similar dilated common bile duct which is likely related to cholecystectomy. Stable right adrenal gla nd 2.2 cm nodule likely representing a benign adenoma. IMPRESSION: 1. No evidence of pulmonary embolism. 2. Similar trace right pleural effusion with right basilar linear atelectasis and/or scarring. 3. Stable mediastinal and right hilar adenopathy dating back to 2019. 4. Cardiomegaly. 5. Stable right adrenal gland lesion dating back to 2019. Considered benign likely an adenoma. 6. Redemonstration of right thyroid lobe 1.8 cm hypodense nodule. Consider thyroid ultrasound if not previously performed. [facility], , 06/01/2024 1:00 PM
[2024-06-01] MEDS: ORPHENADRINE 30 MG/ML 2 ML VIAL IVP STA (13:08)
[2024-06-01] MEDS ORDERED: ONDANSETRON 4 MG/2 ML VIAL IVP PRN (13:53)
[2024-06-01] MEDS ORDERED: HYDROmorphone 1 MG/ML 1 ML SYRINGE IVP PRN (13:53)
[2024-06-01] MEDS ORDERED: LORazepam 0.5 MG TAB PO PRN (13:53)
[2024-06-01] MEDS ORDERED: ACETAMINOPHEN TAB 325 MG TAB PO PRN (13:53)
[2024-06-01] MEDS ORDERED: NALOXONE 0.4 MG/ML 1 ML VIAL IV PRN (13:53)
[2024-06-01] MEDS ORDERED: ALBUTEROL HFA INHALER INHALATION PRN (13:54)
[2024-06-01] MEDS: ASPIRIN 81 MG PO STA (15:22)
[2024-06-01] MEDS: GABAPENTIN 300 MG CAP PO SCH (15:22)
[2024-06-01 18:17] LABS: Appearance,Urine Clear (Clear); Bilirubin,Urine Negative (Negative); Blood,Urine Negative (Negative); Color,Urine Light Yellow; Glucose,Urine (UA) Negative (Negative); Ketones,Urine Negative (Negative); Leukocyte Esterase,Urine Negative (Negative); Nitrite,Urine Negative (Negative); Protein,Urine Negative (Negative); Specific Gravity,Urine 1.037 (1.001-1.035); Urobilinogen,Urine <2.0 mg/dL (<2.0)
[2024-06-01] MEDS: HYDROmorphone 0.5 MG/0.5 ML SYRINGE IVP PRN (18:31)
[2024-06-01] MEDS: SYMBICORT 160-4.5 MCG INHALER INHALATION SCH (19:45)
[2024-06-01] MEDS: clonazePAM 0.5 MG TAB PO SCH (20:52)
[2024-06-01] MEDS: FAMOTIDINE 20 MG TAB PO SCH (20:53)
[2024-06-01] MEDS: lamoTRIgine 100 MG TAB PO SCH (20:53)
[2024-06-01] MEDS: MONTELUKAST 10 MG TAB PO SCH (20:54)
[2024-06-01] MEDS: METOPROLOL TARTRATE 25 MG TAB PO SCH (20:54)
[2024-06-01] MEDS: OLANZapine 5 MG TAB PO SCH (20:55)
[2024-06-01] MEDS: DIVALPROEX ER 250 MG TAB.ER.24H PO SCH (21:35)
--- NOTE | 2024-06-01 22:26 | HP ---
HISTORY AND PHYSICAL CHIEF COMPLAINT: Chest pain, neck pain, and pain all over. HISTORY OF PRESENT ILLNESS: This is a 69-year-old woman with a past medical history of multiple medical problems including COPD, CHF, is complaining of aches and pains all over the body. The patient also had apparently a recent fall. The patient is complaining of severe neck pain also. There is no history of any fever, rigors, or chills at this time. PAST MEDICAL HISTORY: Reviewed includes COPD, asthma, CHF. Rest of the history and rest of the chart is also reviewed. HOME MEDICATIONS: Reviewed include albuterol. Doses and rest of medications reviewed. ALLERGIES: Codeine. FAMILY HISTORY: History of CHF, hypertension. SOCIAL HISTORY: History of smoking. REVIEW OF SYSTEMS: Fourteen-point review is negative except as mentioned earlier. PHYSICAL EXAMINATION: VITAL SIGNS: Pulse is 58, blood pressure 137/58, respirations 20. HEENT: Conjunctivae normal. NECK: No JVD. CARDIOVASCULAR: S1, S2. RESPIRATIONS: Breath sounds diminished at the bases. ABDOMEN: Soft, nontender. LEGS: No edema. NERVOUS SYSTEM: Diffusely weak. Extension of neck and movements are painful. LABORATORY DATA: Noted. ASSESSMENT: 1. Chest pain for evaluation, rule out unstable angina. 2. Severe neck pain, rule out cervical DJD. 3. History of fall. 4. Chronic obstructive pulmonary disease. 5. Congestive heart failure. 6. Hypertension. 7. Degenerative joint disease. 8. History of pulmonary embolism. RECOMMENDATIONS AND DISCUSSION: This is a 69-year-old woman, who presented with multiple complex medical issues, we will monitor the patient closely. Pain management. We will continue with current medications. Cardiology evaluation. I would also recommend orthopedic evaluation and possible MRI of the neck also to rule out the possibility of severe DJD. Guarded prognosis. Further recommendations to follow. MMODL / IJN: [id number] /
[2024-06-01] MEDS: LORazepam 0.5 MG TAB PO PRN (22:49)
[2024-06-02] MEDS: LEVOTHYROXINE 75 MCG TAB PO SCH (06:52)
[2024-06-02 07:42] VITALS: BP 172/73; RESP 20; TEMP 98.5
[2024-06-02] MEDS: lisinopriL 20 MG TAB PO SCH (07:58)
[2024-06-02] MEDS: TAMSULOSIN 0.4 MG CAP.ER.24H PO SCH (07:58)
[2024-06-02] MEDS: PYRIDOXINE 50 MG TAB PO SCH (07:59)
[2024-06-02] MEDS: SODIUM CHLORIDE TAB 1 GM TAB PO SCH (07:59)
[2024-06-02] MEDS: VENLAFAXINE HCL ER 75 MG CAP PO SCH (07:59)
[2024-06-02] MEDS: PANTOPRAZOLE 40 MG/10 ML VIAL IV SCH (08:18)
[2024-06-02] MEDS: IPRATROPIUM-ALBUTEROL 3 ML NEB INHALATION PRN (08:41)
--- NOTE | 2024-06-02 09:52 | P.CRDCN ---
History of Present Illness Consult date: 06/02/24 Consult reason: chest pain History of present illness: This is a 69-year-old female with a past medical history significant for hypertension, hypothyroidism, anxiety, bipolar disorder, depression, nicotine dependence, marijuana use, fibromyalgia, and GERD. Patient follows in the office with Dr. Last. We have been asked to see the patient in consultation for chest pain. Patient states that she developed a burning type pain that started in her abdomen went up into her chest into the bilateral arms. She states she feels like she is on fire. She states she is cannot move her neck. She has chronic spinal issues in her neck. She states all her pain comes and goes and is from her spine and she complains that she is unable to move her neck. She does have mid abdominal tenderness as well as tenderness to the mid chest wall. She denies any worsening of pain with deep breathing. Patient was recently here in March. At that time she was seen for a run of nonsustained ventricular tachycardia. Patient also had a previous hospitalization and was seen for bradycardia which time her beta-nahum was discontinued. This is subsequently been resumed. Patient is a smoker currently at a half a pack per day. DIAGNOSTICS: - EKG reveals sinus mechanism with no signs of acute ischemia - Chest xray is not reported -CTA of the chest showed no evidence of pulmonary embolism. Trace right pleural effusion with right basilar linear atelectasis and/or scarring. Stable mediastinal and right hilar adenopathy. Cardiomegaly. Adrenal gland lesion from 2019. Thyroid nodule redemonstrated. - Laboratory data: WBC 6.1, hemoglobin 10.9. D-dimer 1.01. Sodium 128, potassium 5, CO2 34, creatinine 0.5. Magnesium 1.8. Troponin negative x 3. proBNP 1240. - Current home cardiac medications: Lisinopril 20 mg daily, Lopressor 25 mg twic e daily. - Most recent echocardiogram 04/11/2024: Limited study with normal biventricular systolic function. - Lexiscan Cardiolite stress test performed in the office on 01/27/2023 revealed fixed inferior perfusion defect consistent with diaphragmatic attenuation artifact. No other myocardial perfusion defects to suggest ischemia. Normal left ventricular EF 60%. REVIEW OF SYSTEMS: At the time of my exam: CONSTITUTIONAL: Denies fever or chills. HEENT: Denies blurred vision, vision changes, or eye pain. Denies hemoptysis Reports neck pain CARDIOVASCULAR: Reports chest pain. Denies orthopnea. Denies PND. Denies palpitations RESPIRATORY: Denies shortness of breath. GASTROINTESTINAL: Reports abdominal pain. Denies nausea or vomiting. HEMATOLOGIC: Denies bleeding disorders. GENITOURINARY: Denies any blood in urine. SKIN: Denies pruitis. Denies rash. PHYSICAL EXAM: VITAL SIGNS: Reviewed. GENERAL: Well-developed in no acute distress. HEENT: Head is normocephalic. Pupils are equal, round. Sclerae anicteric. Mucous membranes of the mouth are moist. Neck supple. No JVD or thyromegaly LUNGS: Respirations even and unlabored. Lungs essentially clear to auscultation bilaterally. HEART: Regular rate and rhythm. S1 and S2 heard. Systolic murmur ABDOMEN: Soft. Nondistended. Nontender. EXTREMITIES: Dressing to right knee noted. No clubbing or cyanosis. Peripheral pulses intact. No lower extremity edema NEUROLOGIC: Awake and alert. Oriented x 3. ASSESSMENT: Severe neck pain Abdominal and chest pain noncardiac, acute coronary syndrome ruled out Chest pain musculoskeletal History of nonsustained ventricular tachycardia History of sinus bradycardia Chronic hypoxic respiratory failure on home oxygen Fibromyalgia Hypothyroidism Anxiety Bipolar disorder Depression Nicotine dependence Marijuana use PLAN: Continue current cardiac medications No further cardiac workup at this time. Patient is cleared from cardiology for discharge and may follow-up in the office with Dr. Last in 1 to 2 weeks. Further recommendations pending patient course Nurse practitioner note has been reviewed by physician. Signing provider agrees with the documented findings, assessment, and plan of care documented by [employer] as a scribe. Past Medical History Past Medical History: Asthma, Heart Failure, COPD, Fibromyalgia, GERD/Reflux, Hypertension, Osteoarthritis (OA), Pneumonia, Pulmonary Embolus (PE), Skin Disorder, Thyroid Disorder Additional Past Medical History / Comment(s): Spinal Stenosis, Cervical disc disease/stenosis, scoliosis, recently having numbness/tingling L side of face/neck, recently saw cw operator for L hemidiaphragmatic elevation-pt states she was told this was probably genetic, recently bronchitis and past bronchitis, pt states recent med change (water pill) d/t electrolyte problem/kidney function being affected, pt states she has had pulmonary emboli, past bilateral lower extremity cellulitis, edema lower extremities, IBS, hemorrhoids, benign colon polyps, sinus problems, UTIs, bacteremia/sepsis, cardiac murmur, past L ankle and L wrist fractures. History of Any Multi-Drug Resistant Organisms: MRSA Date of last positivie culture/infection: 03/2024 MDRO Source:: Knee Past Surgical History: Bariatric Surgery, Section, Cholecystectomy, Hysterectomy, Tonsillectomy Additional Past Surgical History / Comment(s): EGD, colonoscopies, gastric bypass, surgery for deviated septum, left cataract removal (having laser procedure on that eye 11/24/23) Past Anesthesia/Blood Transfusion Reactions: Previous Problems w/ Anesthesia Additional Past Anesthesia/Blood Transfusion Reaction / Comment(s): itching after hysterectomy, some kind of breathing problem after gastric bypass-not sure what happened Smoking Status: Current every day smoker - Past Family History Mother Family Medical History: Congestive Heart Failure (CHF), Hypertension Father History Unknown: Yes Additional Family Medical History / Comment(s): Father at the age of 45 yrs d/t having had rheumatic fever as a child and heart valve disease. Medications and Allergies Home Medications Medication Instructions Recorded Confirmed Type Montelukast [Singulair] 10 mg PO HS 12/17/13 06/01/24 History Levothyroxine Sodium [Synthroid] 150 mcg PO DAILY 03/29/20 06/01/24 History Budesonide/Formoterol Fumarate 2 puff INHALATION RT-BID 06/12/21 06/01/24 Histo ry [Symbicort 160-4.5 Mcg Inhaler] Famotidine [Pepcid] 20 mg PO BID 09/03/21 06/01/24 History Tamsulosin [Flomax] 0.4 mg PO DAILY 10/26/21 06/01/24 History Ipratropium-Albuterol Nebulize 3 ml INHALATION RT-QID PRN 11/13/22 06/01/24 History [Duoneb 0.5 mg-3 mg/3 ml Soln] Albuterol Inhaler [Ventolin Hfa 2 puff INHALATION RT-QID PRN #1 11/17/22 06/01/24 Rx Inhaler] each Ibandronate Sodium [Boniva] 150 mg PO Q30D 05/03/23 06/01/24 History clonazePAM [KlonoPIN ODT] 0.25 mg PO HS 12/12/23 06/01/24 History lamoTRIgine [LaMICtal] 100 mg PO BID 03/18/24 06/01/24 History Pyridoxine [Vitamin B-6] 50 mg PO DAILY #30 tab 03/28/24 06/01/24 Rx lisinopriL [Prinivil] 20 mg PO DAILY 04/21/24 06/01/24 History Metoprolol Tartrate [Lopressor] 25 mg PO BID 05/16/24 06/01/24 History Divalproex ER [Depakote ER] 250 mg PO BID #60 tab 05/26/24 06/01/24 Rx OLANZapine [ZyPREXA] 5 mg PO HS #30 tab 05/26/24 06/01/24 Rx Sodium Chloride Tab 1 gm PO DAILY #30 tab 05/26/24 06/01/24 Rx Venlafaxine HCl ER [Effexor XR] 75 mg PO DAILY #30 cap 05/26/24 06/01/24 Rx Gabapentin 300 mg PO TID 06/01/24 06/01/24 History Allergies Allergy/AdvReac Type Severity Reaction Status Date / Time codeine Allergy Unknown Verified 06/01/24 12:02 Childhood Penicillins Allergy Rash/Hives Verified 06/01/24 12:02 Sulfa (Sulfonamide Allergy Rash/Hives Verified 06/01/24 12:02 Antibiotics) Physical Exam Vitals: Vital Signs Temp Pulse Pulse Resp BP BP Pulse Ox 06/02/24 02:00 97.7 F 61 18 164/85 99 06/01/24 22:38 98.0 F 53 L 18 157/67 06/01/24 22:13 121/60 06/01/24 21:49 52 L 16 118/94 96 06/01/24 20:55 60 16 153/67 95 06/01/24 19:47 97 06/01/24 19:43 56 L 16 132/66 98 06/01/24 18:28 97.9 F 56 L 18 159/73 96 06/01/24 18:00 64 22 152/72 93 L 06/01/24 15:19 61 18 137/58 96 06/01/24 13:00 58 L 20 137/58 98 06/01/24 11:25 61 18 120/56 96 06/01/24 10:13 60 18 137/62 97 06/01/24 09:21 98.6 F 69 20 160/78 93 L Intake and Output 06/01/24 06/02/24 06/02/24 22:59 06:59 14:59 Other: Voiding Method Bedside Commode # Voids 3 Weight 72.575 kg Results 06/01/24 09:58 06/01/24 09:58 Cardiac Enzymes 06/01/24 06/01/24 06/01/24 Range/Units 09:58 09:58 14:39 AST 34 (14-36) U/L Troponin I <0.012 <0.012 (0.000-0.034) ng/mL 06/01/24 Range/Units 16:38 AST (14-36) U/L Troponin I <0.012 (0.000-0.034) ng/mL Coagulation 06/01/24 Range/Units 09:58 PT 10.4 (10.0-12.5) sec APTT 27.1 (22.0-30.0) sec CBC 06/01/24 Range/Units 09:58 WBC 6.1 (3.8-10.6) k/uL RBC 3.54 L (3.80-5.40) m/uL Hgb 10.9 L (11.4-16.0) gm/dL Hct 35.2 (34.0-46.0) % Plt Count 229 (150-450) k/uL Comprehensive Metabolic Panel 06/01/24 Range/Units 09:58 Sodium 128 L (137-145) mmol/L Potassium 5.0 (3.5-5.1) mmol/L Chloride 95 L (98-107) mmol/L Carbon Dioxide 34 H (22-30) mmol/L BUN 17 (7-17) mg/dL Creatinine 0.50 L (0.52-1.04) mg/dL Glucose 85 (74-99) mg/dL Calcium 9.1 (8.4-10.2) mg/dL AST 34 (14-36) U/L ALT 28 (4-34) U/L Alkaline Phosphatase 64 (38-126) U/L Total Protein 5.7 L (6.3-8.2) g/dL Albumin 3.5 (3.5-5.0) g/dL Current Medications Generic Name Dose Route Start Last Admin Trade Name Freq PRN Reason Stop Dose Admin Acetaminophen 650 mg 06/01/24 13:53 Acetaminophen Tab 325 Mg Tab PO Q6HR PRN Mild Pain or Fever > 100.5 Hydrocodone Bitart/Acetaminophen 1 each 06/01/24 13:53 Hydrocodone/Apap 5-325mg 1 Each Tab PO Q4HR PRN Moderate Pain (Scale 4 to 6) Albuterol/Ipratropium 3 ml 06/01/24 13:54 Ipratropium-Albuterol 3 Ml Neb INHALATION RT-QID PRN Shortness Of Breath Budesonide/Formoterol Fumarate 2 puff 06/01/24 20:00 06/01/24 19:45 Symbicort 160-4.5 Mcg Inhaler INHALATION 2 puff RT-BID JEIMY Administration Clonazepam 0.25 mg 06/01/24 21:00 06/01/24 20:52 Clonazepam 0.5 Mg Tab PO 0.25 mg HS JEIMY Administration Divalproex Sodium 250 mg 06/01/24 21:00 06/01/24 21:35 Divalproex Er 250 Mg Tab.Er.24h PO 250 mg BID JEIMY Administration Famotidine 20 mg 06/01/24 21:00 06/01/24 20:53 Famotidine 20 Mg Tab PO 20 mg BID JEIMY Administration Gabapentin 300 mg 06/01/24 16:00 06/01/24 21:35 Gabapentin 300 Mg Cap PO 300 mg TID JEIMY Administration Hydromorphone HCl 0.5 mg 06/01/24 15:38 06/02/24 06:52 Hydromorphone 0.5 Mg/0.5 Ml Syringe IVP 0.5 mg Q3HR PRN Administration Severe Pain (Scale 7 to 10) Lamotrigine 100 mg 06/01/24 21:00 06/01/24 20:53 Lamotrigine 100 Mg Tab PO 100 mg BID JEIMY Administration Levothyroxine Sodium 150 mcg 06/02/24 06:30 06/02/24 06:52 Levothyroxine 75 Mcg Tab PO 150 mcg DAILY@0630 JEIMY Administration Lisinopril 20 mg 06/02/24 09:00 Lisinopril 20 Mg Tab PO DAILY JEIMY Lorazepam 0.5 mg 06/01/24 15:38 06/01/24 22:49 Lorazepam 0.5 Mg Tab PO 0.5 mg Q8HR PRN Administration Anxiety Metoprolol Tartrate 25 mg 06/01/24 21:00 06/01/24 20:54 Metoprolol Tartrate 25 Mg Tab PO 25 mg BID JEIMY Administration Montelukast Sodium 10 mg 06/01/24 21:00 06/01/24 20:54 Montelukast 10 Mg Tab PO 10 mg HS JEIMY Administration Naloxone HCl 0.2 mg 06/01/24 13:53 Naloxone 0.4 Mg/Ml 1 Ml Vial IV Q2M PRN Opioid Reversal Non-Formulary Medication 150 mg 06/08/24 09:00 Ibandronate Sodium [Boniva] PO Q30D JEIMY Olanzapine 5 mg 06/01/24 21:00 06/01/24 20:55 Olanzapine 5 Mg Tab PO 5 mg HS JEIMY Administration Ondansetron HCl 4 mg 06/01/24 13:53 Ondansetron 4 Mg/2 Ml Vial IVP Q8HR PRN Nausea And Vomiting Pantoprazole Sodium 40 mg 06/02/24 09:00 Pantoprazole 40 Mg/10 Ml Vial IV DAILY [facility] Pyridoxine HCl 50 mg 06/02/24 09:00 Pyridoxine 50 Mg Tab PO DAILY [facility] Sodium Chloride 1 gm 06/02/24 09:00 Sodium Chloride Tab 1 Gm Tab PO DAILY [facility] Tamsulosin HCl 0.4 mg 06/02/24 09:00 Tamsulosin 0.4 Mg Cap.Er.24h PO DAILY [facility] Venlafaxine HCl 75 mg 06/02/24 09:00 Venlafaxine Hcl Er 75 Mg Cap PO DAILY [facility] Intake and Output 06/01/24 06/02/24 06/02/24 22:59 06:59 14:59 Other: Voiding Method Bedside Commode # Voids 3 Weight 72.575 kg 06/01/24 09:58 06/01/24 09:58
[2024-06-02 10:46] LABS: Basophils % (A) 1.5 %; Eosinophils # (A) 0.14 X 10*3/uL (0.04-0.35); Eosinophils % (A) 2.1 %; HCT 35.5 % (37.2-46.3); Lymphocytes % (A) 22.1 %; MCH 30.7 pg (27.0-32.0); MCV 99.2 FL (80.0-97.0); Mean Platelet Volume 9.1 FL (9.5-12.2); Monocytes # (A) 0.62 X 10*3/uL (0.20-1.00); Monocytes % (A) 9.1 %; NRBC Per 100 WBC 0 X 10*3/uL (0.00-0.01); Neutrophils # (A) 4.41 X 10*3/uL (1.80-7.70); Neutrophils % (A) 64.9 %; Platelet Count 233 X 10*3/uL (140-440); RBC 3.58 X 10*6/uL (4.10-5.20); RDW 12.9 % (11.5-14.5); WBC 6.79 X 10*3/uL (4.50-10.00)
[2024-06-02 10:57] LABS: BUN/Creat Ratio 24.25 Ratio (12.00-20.00); Blood Urea Nitrogen 9.7 mg/dL (9.0-27.0); Calcium 9.3 mg/dL (8.7-10.3); Carbon Dioxide 32.9 mmol/L (21.6-31.8); Chloride 96 mmol/L (96-109); Glucose 73 mg/dL (70-110); Potassium 5.3 mmol/L (3.5-5.5); Sodium 134 mmol/L (135-145)
[2024-06-02] MEDS: HYDROcodone/APAP 5-325MG 1 EACH TAB PO PRN (14:16)
[2024-06-02 15:38] VITALS: PULSE 74
[2024-06-03] MEDS ORDERED: PANTOPRAZOLE 40 MG TABLET PO SCH (07:30)
--- NOTE | 2024-06-03 11:37 | P.DS ---
Providers Date of admission: 06/01/24 13:50 Expected date of discharge: 06/02/24 Attending physician: Megan Esparza Consults: 06/01/24 13:53 Consult Physician Urgent Consulting Provider: Russ Baker Consult Reason/Comments: Chest pain Do you want consulting provider notified?: Yes 06/01/24 15:37 Consult Physician Routine Consulting Provider: Mark Alex Consult Reason/Comments: neck pain cervical djd, fall Do you want consulting provider notified?: Yes Primary care physician: Andrzej Wheeler Hospital Course: Final diagnosis Chest pain, ruled out ACS, possible unstable angina Severe neck pain, possible cervical DJD History of falls with recurrent falls Persistent hyponatremia, likely SIADH COPD, not in exacerbation History of congestive heart failure Hypertension Degenerative joint disease History of pulmonary embolism Obesity GI prophylaxis DVT prophylaxis Full code Discharge disposition Patient is being discharged in a stable condition with guarded prognosis to home. Patient will follow-up with Dr. Wheeler in the outpatient setting upon discharge. Patient is to continue with current medications and outpatient follow-up with Dr. Last as well as Patricio Hernandez with orthopedics as scheduled. Total time taken is greater than 35 minutes. Hospital course This is a 69-year-old female who was recently admitted severe neck pain and back pain along with chest pain being closely monitored. Patient evaluated by cardiology ACS ruled out recommending outpatient follow-up with her ems director Dr. Last in the clinic. Patient also reporting severe neck pain and was evaluated by orthopedics with no plans of surgical intervention at this time recommending outpatient follow-up as well. Patient reports to feeling improved and would like to go home. at the bedside and verbalized understanding. Sodium currently 134 maintained on sodium chloride tablets recommend outpatient follow-up with nephrology as well. Prescription provided to follow-up with repeat labs in the next 2 to 3 days. Patient instructed to follow-up with Dr. Andrzej Wheeler in 1 to 2 days. Currently no reports of chest pain, shortness of breath, or palpitations. Patient is afebrile. No reports of nausea or vomiting and patient is tolerating diet. Patient will be discharged home today. Guarded prognosis and high risk for readmissions given significant comorbidities. Physical exam: Gen: This is a 69-year-old female who is awake, alert and oriented x 3, well- developed, elderly appearing, obese HEENT: Head is atraumatic, normocephalic. Pupils equal, round. Sclerae is anicteric. NECK: Supple. No JVD. No lymphadenopathy. No thyromegaly. LUNGS: Clear to auscultation. No wheezes or rhonchi. No intercostal retractions. HEART: S1, S2 are muffled ABDOMEN: Soft. Obese bowel sounds are present. No masses. No tenderness. EXTREMITIES: No pedal edema. No calf tenderness. NEUROLOGICAL: Patient is awake, alert and oriented x3. Cranial nerves 2 through 12 are grossly intact. Please refer to medication reconciliation sheet for a list of medications. The impression and plan of care has been dictated by Audrey Curtis, Nurse Practitioner as directed. Dr. Isaias MD I have performed a history and examination and MDM of this patient, discussed the same with the dictator, and agree with the dictator's assessment and plan as written ,documented as a scribe. Based on total visit time, I have performed more than 50% of the visit. Patient Condition at Discharge: Fair Plan - Discharge Summary Discharge Rx Participant: Yes New Discharge Prescriptions: New Acetaminophen Tab [Tylenol] 650 mg PO Q6HR PRN tab PRN Reason: Mild Pain Or Fever > 100.5 Continue Montelukast [Singulair] 10 mg PO HS Levothyroxine Sodium [Synthroid] 150 mcg PO DAILY Ipratropium-Albuterol Nebulize [Duoneb 0.5 mg-3 mg/3 ml Soln] 3 ml INHALATION RT-QID PRN PRN Reason: Shortness Of Breath clonazePAM [KlonoPIN ODT] 0.25 mg PO HS lamoTRIgine [LaMICtal] 100 mg PO BID Pyridoxine [Vitamin B-6] 50 mg PO DAILY #30 tab OLANZapine [ZyPREXA] 5 mg PO HS #30 tab Budesonide/Formoterol Fumarate [Symbicort 160-4.5 Mcg Inhaler] 2 puff INHALATION RT-BID Famotidine [Pepcid] 20 mg PO BID Tamsulosin [Flomax] 0.4 mg PO DAILY Albuterol Inhaler [Ventolin Hfa Inhaler] 2 puff INHALATION RT-QID PRN #1 each PRN Reason: Shortness Of Breath Ibandronate Sodium [Boniva] 150 mg PO Q30D lisinopriL [Prinivil] 20 mg PO DAILY Metoprolol Tartrate [Lopressor] 25 mg PO BID Sodium Chloride Tab 1 gm PO DAILY #30 tab Divalproex ER [Depakote ER] 250 mg PO BID #60 tab Venlafaxine HCl ER [Effexor XR] 75 mg PO DAILY #30 cap Gabapentin 300 mg PO TID Discharge Medication List Montelukast [Singulair] 10 mg PO HS 12/17/13 [History] Levothyroxine Sodium [Synthroid] 150 mcg PO DAILY 03/29/20 [History] Budesonide/Formoterol Fumarate [Symbicort 160-4.5 Mcg Inhaler] 2 puff INHALATION RT-BID 06/12/21 [History] Famotidine [Pepcid] 20 mg PO BID 09/03/21 [History] Tamsulosin [Flomax] 0.4 mg PO DAILY 10/26/21 [History] Ipratropium-Albuterol Nebulize [Duoneb 0.5 mg-3 mg/3 ml Soln] 3 ml INHALATION RT-QID PRN 11/13/22 [History] Albuterol Inhaler [Ventolin Hfa Inhaler] 2 puff INHALATION RT-QID PRN #1 each 11/17/22 [Rx] Ibandronate Sodium [Boniva] 150 mg PO Q30D 05/03/23 [History] clonazePAM [KlonoPIN ODT] 0.25 mg PO HS 12/12/23 [History] lamoTRIgine [LaMICtal] 100 mg PO BID 03/18/24 [History] Pyridoxine [Vitamin B-6] 50 mg PO DAILY #30 tab 03/28/24 [Rx] lisinopriL [Prinivil] 20 mg PO DAILY 04/21/24 [History] Metoprolol Tartrate [Lopressor] 25 mg PO BID 05/16/24 [History] Divalproex ER [Depakote ER] 250 mg PO BID #60 tab 05/26/24 [Rx] OLANZapine [ZyPREXA] 5 mg PO HS #30 tab 05/26/24 [Rx] Sodium Chloride Tab 1 gm PO DAILY #30 tab 05/26/24 [Rx] Venlafaxine HCl ER [Effexor XR] 75 mg PO DAILY #30 cap 05/26/24 [Rx] Gabapentin 300 mg PO TID 06/01/24 [History] Acetaminophen Tab [Tylenol] 650 mg PO Q6HR PRN tab 06/02/24 [Rx] Follow up Appointment(s)/Referral(s): Andrzej Wheeler MD [Primary Care Provider] - 06/08/24 1:40 pm () Geno Olea MD [STAFF PHYSICIAN] - 1 Week (please call and make appointment ) Mark Alex DO [Doctor of Osteopathic Medicine] - 06/14/24 10:45 am (seeing Mary Grace OGLESBY) Ambulatory/Diagnostic Orders: Basic Metabolic Panel [LAB.AMB] Time Frame: 3 Days, Location: None Selected Patient Instructions/Handouts: Chest Pain (DC) Activity/Diet/Wound Care/Special Instructions: Activity limited until follow-up Follow-up with primary care provider this week Follow-up with nephrology this week Follow-up with orthopedics as discussed Continue taking medications as prescribed Discharge Disposition: HOME SELF-CARE
--- NOTE | 2024-06-06 08:17 | XR ---
EXAMINATION TYPE: XR chest 2V DATE OF EXAM: 06/01/2024 9:40 AM COMPARISON: 05/30/2024 CLINICAL INDICATION: Female, 69 years old with history of difficulty breathing, TECHNIQUE: XR chest 2V view(s) obtained. FINDINGS: The heart size is large. The pulmonary vasculature is normal prominent. Mild diffuse increased infiltrates at the right base. Correlate for small effusion and atelectasis.. IMPRESSION: 1. Right lower lobe atelectasis or pneumonia. Follow-up is recommended. [facility], , 06/01/2024 11:46 AM
--- NOTE | 2024-06-06 11:41 | P.CNOR ---
History of Present Illness - [facility] Consult date: 06/02/24 Consult reason: neck pain History of present illness: Patient is a 69-year-old female who was brought to [facility] yesterday with regards to chest pain, she underwent initial workup in the emergency room and was admitted for further management. Cardiology has evaluated the patient and determined no acute coronary event and has signed off patient. Patient is complained of neck pain which is chronic for her, she also has not low chronic low back pain. Our orthopedic team was consulted for evalua tion on this patient. Patient was evaluated today at bedside, she is resting comfortably in her hos pital bed. I did initially evaluate this patient back in early March 2024. She underwent an extensive workup, this to include cervical, thoracic and lumbar MRIs in March 2024.. Patient has known severe spondylitic changes throughout both the cervical and lumbar spine. She has not significant central canal stenosis and C3-C4, C4-C5 region. She has significant scoliosis present in the spine. At that time patient I felt was very unmanaged with regards to her psychiatric disorder, she seems a lot better off today on exam. She was very emotional the last time I saw the patient, she seems more at ease today. She continues to ambulate with minimal assistance. She is dealt with the neck pain and low back pain for many years, she notes a vague weakness in the bilateral upper and lower extremities. She denies any loss of bowel or bladder function currently. She does admit to intermittent numbness and tingling of the bilateral lower extremities and upper extremities. I advised follow-up the last time we had seen the patient in the hospital with Dr. Lindsay's [facility], she never did follow through with this. Patient seems adamant about being discharged home when discussing her current case today at bedside. 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 History of Any Multi-Drug Resistant Organisms: MRSA Year Discovered:: 03/2024 MDRO Source:: Knee Past Surgical History: Bariatric Surgery, Section, Cholecystectomy, Hysterectomy, Tonsillectomy Additional Past Surgical History / Comment(s): EGD, colonoscopies, gastric bypass, surgery for deviated septum, left cataract removal (having laser procedure on that eye 11/24/23) Past Anesthesia/Blood Transfusion Reactions: Previous Problems w/ Anesthesia Additional Past Anesthesia/Blood Transfusion Reaction / Comm: itching after hysterectomy, some kind of breathing problem after gastric bypass-not sure what happened Smoking Status: Current every day smoker - Past Family History Mother Family Medical History: Congestive Heart Failure (CHF), Hypertension Father History Unknown: Yes Additional Family Medical History / Comment(s): Father at the age of 45 yrs d/t having had rheumatic fever as a child and heart valve disease. Medications and Allergies Home Medications Medication Instructions Recorded Confirmed Type Montelukast [Singulair] 10 mg PO HS 12/17/13 06/01/24 History Levothyroxine Sodium [Synthroid] 150 mcg PO DAILY 03/29/20 06/01/24 History Budesonide/Formoterol Fumarate 2 puff INHALATION RT-BID 06/12/21 06/01/24 History [Symbicort 160-4.5 Mcg Inhaler] Famotidine [Pepcid] 20 mg PO BID 09/03/21 06/01/24 History Tamsulosin [Flomax] 0.4 mg PO DAILY 10/26/21 06/01/24 History Ipratropium-Albuterol Nebulize 3 ml INHALATION RT-QID PRN 11/13/22 06/01/24 History [Duoneb 0.5 mg-3 mg/3 ml Soln] Albuterol Inhaler [Ventolin Hfa 2 puff INHALATION RT-QID PRN #1 11/17/22 06/01/24 Rx Inhaler] each Ibandronate Sodium [Boniva] 150 mg PO Q30D 05/03/23 06/01/24 History clonazePAM [KlonoPIN ODT] 0.25 mg PO HS 12/12/23 06/01/24 History lamoTRIgine [LaMICtal] 100 mg PO BID 03/18/24 06/01/24 History Pyridoxine [Vitamin B-6] 50 mg PO DAILY #30 tab 03/28/24 06/01/24 Rx lisinopriL [Prinivil] 20 mg PO DAILY 04/21/24 06/01/24 History Metoprolol Tartrate [Lopressor] 25 mg PO BID 05/16/24 06/01/24 History Divalproex ER [Depakote ER] 250 mg PO BID #60 tab 05/26/24 06/01/24 Rx OLANZapine [ZyPREXA] 5 mg PO HS #30 tab 05/26/24 06/01/24 Rx Sodium Chloride Tab 1 gm PO DAILY #30 tab 05/26/24 06/01/24 Rx Venlafaxine HCl ER [Effexor XR] 75 mg PO DAILY #30 cap 05/26/24 06/01/24 Rx Gabapentin 300 mg PO TID 06/01/24 06/01/24 History Allergies Allergy/AdvReac Type Severity Reaction Status Date / Time codeine Allergy Unknown Verified 06/01/24 12:02 Childhood Penicillins Allergy Rash/Hives Verified 06/01/24 12:02 Sulfa (Sulfonamide Allergy Rash/Hives Verified 06/01/24 12:02 Antibiotics) Physical Examination Gen: AOx3, NAD VSS stable at this time Integument: No open lesions, sores, areas of soft tissue swelling or erythema present throughout the cervical, thoracic or lumbar spine Palpation: Patient demonstrates generalized paraspinal pain in the cervical and lumbar region ROM: Full range of motion in all major muscle groups of the bilateral upper and lower extremities, no focal deficits are appreciated Sensory Exam: Senory exam to light touch is intact C5-T1 Sen[place] exam to light touch is intact L2-S1 Motor: 4+/5 strength appreciated the bilateral upper extremities with shoulder elevation, shoulder abduction, elbow extension, elbow flexion, wrist extension, wrist flexion, 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 4+5 strength appreciated the bilateral lower extremities with hip flexion, knee extension, knee flexion, plantarflexion, dorsiflexion, EHL, FHL Reflexes: Negative Dallas's bilaterally Negative clonus bilaterally Special Test: Negative straight leg raise bilaterally Negative logroll maneuver bilaterally Results - Labs Labs: Abnormal Lab Results - Last 24 Hours (Table) 06/01/24 06/01/24 06/02/24 Range/Units 09:58 09:58 06:58 RBC 3.58 L (4.10-5.20) X 10*6/uL Hgb 11.0 L (12.0-15.0) g/dL Hct 35.5 L (37.2-46.3) % MCV 99.2 H (80.0-97.0) FL MCHC 31.0 L (32.0-37.0) g/dL MPV 9.1 L (9.5-12.2) FL D-Dimer 1.01 H (<0.60) mg/L FEU Sodium (135-145) mmol/L Carbon Dioxide (21.6-31.8) mmol/L Creatinine (0.6-1.5) mg/dL BUN/Creatinine Ratio (12.00-20.00) Ratio Ur Specific [place] 1.037 H (1.001-1.035) 06/02/24 Range/Units 06:58 RBC (4.10-5.20) X 10*6/uL Hgb (12.0-15.0) g/dL Hct (37.2-46.3) % MCV (80.0-97.0) FL MCHC (32.0-37.0) g/dL MPV (9.5-12.2) FL D-Dimer (<0.60) mg/L FEU Sodium 134 L (135-145) mmol/L Carbon Dioxide 32.9 H (21.6-31.8) mmol/L Creatinine 0.4 L (0.6-1.5) mg/dL BUN/Creatinine Ratio 24.25 H (12.00-20.00) Ratio Ur Specific [place] (1.001-1.035) H & H 06/01/24 06/02/24 Range/Units 09:58 06:58 Hgb 10.9 L 11.0 L (11.4-16.0) gm/dL Hct 35.2 35.5 L (34.0-46.0) % Coagulation 06/01/24 Range/Units 09:58 INR 0.9 (<1.2) Result Diagrams: 06/02/24 06:58 06/02/24 06:58 Assessment and Plan Assessment: Chronic low back pain Chronic neck pain Bilateral upper and lower extremity paresthesias Scoliosis Multilevel cervical spondylosis Significant central canal stenosis C2-C3, C3-C4 Multilevel cervical neuroforaminal stenosis Multilevel lumbar spondylosis Multilevel lumbar central canal and neuroforaminal stenosis Anxiety Other medical comorbidities Plan: I was able to discuss the case, this to include physical exam findings and imaging studies and my attending Dr. Alex. No emergent orthopedic surgical intervention is recommended at this time. We did discuss the surgical option briefly today at bedside, she was made aware of the extensive issues in her cervical and lumbar spine. I advised it is very important follow-up with Dr. Alex in the outpatient setting to discuss the MRIs in further detail and discuss options for treatment. Other medical specialty recommendations appreciated Orthopedically patient remains stable for discharge and follow-up in the outpatient setting in the next week
[2024-06-08] MEDS ORDERED: NON FORMULARY DRUG (Ibandronate Sodium [Boniva] 150 MG Tablet) PO SCH (09:00)
== END 2024-06-02 16:23 | disposition home or self-care (01) ==
LOC: EC 09:18 → 6NMEDSUR 13:50
PROVIDERS: ADMIT Hospitalist; ATTEND Hospitalist
DX: R07.9 Chest pain, unspecified (principal); M54.2 Cervicalgia; E03.9 Hypothyroidism, unspecified; E04.1 Nontoxic single thyroid nodule; E87.1 Hypo-osmolality and hyponatremia; E66.9 Obesity, unspecified; F17.200 Nicotine dependence, unspecified, uncomplicated; F31.9 Bipolar disorder, unspecified; F41.9 Anxiety disorder, unspecified; G89.29 Other chronic pain; I11.0 Hypertensive heart disease with heart failure; I50.9 Heart failure, unspecified; J44.89 Other specified chronic obstructive pulmonary disease; J96.11 Chronic respiratory failure with hypoxia; K21.9 Gastro-esophageal reflux disease without esophagitis; M41.9 Scoliosis, unspecified; M47.812 Spondylosis without myelopathy or radiculopathy, cervical region; M47.816 Spondylosis without myelopathy or radiculopathy, lumbar region; M48.02 Spinal stenosis, cervical region; M79.7 Fibromyalgia; Z79.51 Long term (current) use of inhaled steroids; Z79.890 Hormone replacement therapy; Z79.899 Other long term (current) drug therapy; Z86.711 Personal history of pulmonary embolism; Z91.81 History of falling; Z99.81 Dependence on supplemental oxygen; Z88.5 Allergy status to narcotic agent; Z88.0 Allergy status to penicillin; Z88.2 Allergy status to sulfonamides
CPT/HCPCS: 96376 ×2; 96375 ×2; 96374; 99285; 36415; 94640 ×3; 94760; 93005; 85379; 83880; 80053; 80048; 85652; 83605; 83735; 84484; 85025 ×2; 85610; 85730; 86140; 81003; 71046; 71275; G0378 ×2; J2360; J1171 ×3; J1885; Q9967; J2470

== ENCOUNTER 2024-06-07 08:36 | Emergency (ER) | payer MEDICARE ==
[2024-06-07 08:41] VITALS: RESP 18; TEMP 98.8
[2024-06-07] MEDS: LORazepam 2 MG/ML INJ IV STA (09:15)
[2024-06-07] MEDS: MORPHINE SULFATE 4 MG/ML SYRINGE IV STA (09:16)
[2024-06-07 09:31] LABS: Basophils # (A) 0.1 k/uL (0-0.2); Basophils % (A) 1 %; Eosinophils # (A) 0.2 k/uL (0-0.7); Eosinophils % (A) 2 %; HGB 11.5 gm/dL (11.4-16.0); Lymphocytes % (A) 24 %; MCH 31.2 pg (25.0-35.0); MCHC 31.9 g/dL (31.0-37.0); Mean Platelet Volume 6.8; Monocytes # (A) 0.6 k/uL (0-1.0); Monocytes % (A) 7 %; Neutrophils # (A) 5.4 k/uL (1.3-7.7); Neutrophils % (A) 64 %; Platelet Count 287 k/uL (150-450); RBC 3.68 m/uL (3.80-5.40); WBC 8.4 k/uL (3.8-10.6)
[2024-06-07 09:51] LABS: ALT 30 U/L (4-34); AST 35 U/L (14-36); African American GFR (CKD) >90 (>60 ml/min/1.73 sqM); Albumin 3.5 g/dL (3.5-5.0); Alkaline Phosphatase 51 U/L (38-126); Anion Gap -1 mmol/L; Blood Urea Nitrogen 15 mg/dL (7-17); Calcium 9.2 mg/dL (8.4-10.2); Carbon Dioxide 36 mmol/L (22-30); Chloride 92 mmol/L (98-107); Glucose 81 mg/dL (74-99); Non-African American GFR(CKD) >90 (>60 ml/min/1.73 sqM); Potassium 5.1 mmol/L (3.5-5.1); Sodium 127 mmol/L (137-145); Total Bilirubin 0.3 mg/dL (0.2-1.3); Total Protein 5.7 g/dL (6.3-8.2)
--- NOTE | 2024-06-07 10:12 | ED ---
Chest Pain HPI - General Chief Complaint: Chest Pain Stated Complaint: chest pain/L arm pain/neck pain Time Seen by Provider: 06/07/24 08:40 Source: patient, family Mode of arrival: wheelchair Limitations: no limitations - History of Present Illness Initial Comments: 69-year-old female with past medical history of COPD, congestive heart failure, anxiety who presents to the emergency department with chest pain. Patient states that she has pain in her neck that radiates to her left arm and wraps around to the front of her chest. Patient has been seen multiple times in the emergency department as well as but has been hospitalized several times for this exact same complaint. It was reported that the patient was supposed to follow- up in Dr. Dave office. Patient has had this recommendation for several months however has not followed up yet. Does admit that she does have an upcoming appointment. Presents today with the exact same complaints. Denies any changes in the quality or severity of her symptoms. She does admit that she does not have pain medications at home to take. She denies fevers, leg swelling, weight gain. No cough. No ripping or tearing sensation to her back. No new injuries. No other alleviating, precipitating or modifying factors - Related Data Home Medications Medication Instructions Recorded Confirmed Montelukast [Singulair] 10 mg PO HS 12/17/13 06/20/24 Levothyroxine Sodium [Synthroid] 150 mcg PO DAILY 03/29/20 06/20/24 Budesonide/Formoterol Fumarate 2 puff INHALATION RT-BID 06/12/21 06/20/24 [Symbicort 160-4.5 Mcg Inhaler] Famotidine [Pepcid] 20 mg PO BID 09/03/21 06/20/24 Tamsulosin [Flomax] 0.4 mg PO DAILY 10/26/21 06/20/24 Ipratropium-Albuterol Nebulize 3 ml INHALATION RT-QID PRN 11/13/22 06/20/24 [Duoneb 0.5 mg-3 mg/3 ml Soln] Ibandronate Sodium [Boniva] 150 mg PO Q30D 05/03/23 06/20/24 clonazePAM [KlonoPIN ODT] 0.25 mg PO HS 12/12/23 06/20/24 lamoTRIgine [LaMICtal] 100 mg PO BID 03/18/24 06/20/24 lisinopriL [Prinivil] 20 mg PO DAILY 04/21/24 06/20/24 Metoprolol Tartrate [Lopressor] 25 mg PO BID 05/16/24 06/20/24 Gabapentin 300 mg PO TID 06/01/24 06/20/24 busPIRone HCL [Buspar] 30 mg PO BID 06/09/24 06/20/24 Previous Rx's Medication Instructions Recorded Albuterol Inhaler [Ventolin Hfa 2 puff INHALATION RT-QID PRN #1 11/17/22 Inhaler] each Pyridoxine [Vitamin B-6] 50 mg PO DAILY #30 tab 03/28/24 Divalproex ER [Depakote ER] 250 mg PO BID #60 tab 05/26/24 OLANZapine [ZyPREXA] 5 mg PO HS #30 tab 05/26/24 Sodium Chloride Tab 1 gm PO DAILY #30 tab 05/26/24 Venlafaxine HCl ER [Effexor XR] 75 mg PO DAILY #30 cap 05/26/24 Acetaminophen Tab [Tylenol] 650 mg PO Q6HR PRN tab 06/02/24 Cyclobenzaprine [Flexeril] 10 mg PO TID PRN 15 Days #30 tab 06/11/24 Allergies Allergy/AdvReac Type Severity Reaction Status Date / Time codeine Allergy Unknown Verified 06/20/24 09:40 Childhood Penicillins Allergy Rash/Hives Verified 06/20/24 09:40 Sulfa (Sulfonamide Allergy Rash/Hives Verified 06/20/24 09:40 Antibiotics) Review of Systems ROS Statement: Those systems with pertinent positive or pertinent negative responses have been documented in the HPI. ROS Other: All systems not noted in ROS Statement are negative. 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 History of Any Multi-Drug Resistant Organisms: MRSA Date of last positivie culture/infection: 03/2024 MDRO Source:: Knee Past Surgical History: Bariatric Surgery, Section, Cholecystectomy, Hysterectomy, Tonsillectomy Additional Past Surgical History / Comment(s): EGD, colonoscopies, gastric bypass, surgery for deviated septum, left cataract removal (having laser procedure on that eye 11/24/23) Past Anesthesia/Blood Transfusion Reactions: Previous Problems w/ Anesthesia Additional Past Anesthesia/Blood Transfusion Reaction / Comment(s): itching after hysterectomy, some kind of breathing problem after gastric bypass-not sure what happened Past Psychological History: Anxiety, Bipolar, Depression, Panic Disorder Smoking Status: Current every day smoker Past Alcohol Use History: None Reported Past Drug Use History: None Reported - Past Family History Mother Family Medical History: Congestive Heart Failure (CHF), Hypertension Father History Unknown: Yes Additional Family Medical History / Comment(s): Father at the age of 45 yrs d/t having had rheumatic fever as a child and heart valve disease. General Exam Limitations: no limitations General appearance: alert, in no apparent distress Head exam: Present: atraumatic, normocephalic, normal inspection Eye exam: Present: normal appearance, PERRL, EOMI. Absent: scleral icterus, conjunctival injection, periorbital swelling ENT exam: Present: normal exam, mucous membranes moist Neck exam: Present: tenderness (To palpation of the paraspinal muscles on the left), other (No weakness of the upper extremity. 2+ radial and ulnar pulses). Absent: meningismus, lymphadenopathy Respiratory exam: Present: normal lung sounds bilaterally. Absent: respiratory distress, wheezes, rales, rhonchi, stridor Cardiovascular Exam: Present: regular rate, normal rhythm, normal heart sounds. Absent: systolic murmur, diastolic murmur, rubs, gallop, clicks GI/Abdominal exam: Present: soft, normal bowel sounds. Absent: distended, tenderness, guarding, rebound, rigid Extremities exam: Present: normal inspection, full ROM, normal capillary refill. Absent: tenderness, pedal edema, joint swelling, calf tenderness Back exam: Present: normal inspection Neurological exam: Present: alert, oriented X3, CN II-XII intact Psychiatric exam: Present: normal affect, normal mood Skin exam: Present: warm, dry, intact, normal color. Absent: rash Course Vital Signs 06/07/24 06/07/24 08:38 11:13 Temperature 98.8 F Pulse Rate 62 87 Respiratory 18 18 Rate Blood Pressure 177/80 136/62 O2 Sat by Pulse 94 L 98 Oximetry Chest Pain MDM - MDM Was pt. sent in by a medical professional or institution (, PA, FLATBED DRIVER, urgent care, hospital, or shelter...) When possible be specific @ -No Did you speak to anyone other than the patient for history (EMS, parent, family, police, friend...)? What history was obtained from this source @ -No Did you review nursing and triage notes (agree or disagree)? Why? @ -I reviewed and agree with nursing and triage notes Were old charts reviewed (outside hosp., previous admission, EMS record, old EKG, old radiological studies, urgent care reports/EKG's, shelter records)? Report findings @ -I reviewed patient's discharge summary from the . Patient has had extensive testing in regards to her symptoms Differential Diagnosis (chest pain, altered mental status, abdominal pain women, abdominal pain men, vaginal bleeding, weakness, fever, dyspnea, syncope, headache, dizziness, GI bleed, back pain, seizure, CVA, palpatations, mental health, musculoskeletal)? @ -Differential Chest Pain: Stable Angina, Unstable Angina, STEMI, NSTEMI Aortic Dissection, Pneumothorax, Musculoskeletal, Esophageal Spasm GERD, Cholecystitis, Pancreatitis, Zoster, this is not meant to be an all-inclusive list. EKG interpreted by me (3pts min.). @ -Yes and demonstrates sinus rhythm with rate of 60. ID interval 197. QRS at 118. QTc of 398. Inverted T wave lead III. Previously seen on old EKGs. No acute ST segment elevation X-rays interpreted by me (1pt min.). @ -None done CT interpreted by me (1pt min.). @ -None done U/S interpreted by me (1pt. min.). @ -None done What testing was considered but not performed or refused? (CT, X-rays, U/S, labs)? Why? @ -None What meds were considered but not given or refused? Why? @ -None Did you discuss the management of the patient with other professionals (professionals i.e. , PA, FLATBED DRIVER, lab, RT, psych nurse, sr. social media & mobile manager, bezel cutter, teacher, flight communications officer, housing case manager)? Give summary @ -No Was smoking cessation discussed for >3mins.? @ -No Was critical care preformed (if so, how long)? @ -No Were there social determinants of health that impacted care today? How? (Homelessness, low income, unemployed, alcoholism, drug addiction, transportation, low edu. Level, literacy, decrease access to med. care, intermediate, rehab)? @ -No Was there de-escalation of care discussed even if they declined (Discuss DNR or withdrawal of care, Hospice)? DNR status @ -No What co-morbidities impacted this encounter? (DM, HTN, Smoking, COPD, CAD, Cancer, CVA, ARF, Chemo, Hep., AIDS, mental health diagnosis, sleep apnea, morbid obesity)? @ -Anxiety, COPD, chronic neck pain Was patient admitted / discharged? Hospital course, mention meds given and route, prescriptions, significant lab abnormalities, going to OR and other pertinent info. @ -Upon arrival patient seen and evaluated in room 23. Thorough history and physical exam was performed. Patient has been hospitalized on several occasions for this same complaint. She has had extensive testing. Patient denies any new or worsening symptoms. Patient presents today because she is requesting anxiety medications and pain medications. Asking to make sure that "everything is still okay". I did complete an EKG. Laboratory studies are conducted. Patient is reevaluated and reports to improvement in her symptoms. I did discuss the diagnosis. Informed the patient that there is outpatient follow-up that she needs to complete including evaluation by the orthopedic spine in office. Patient understood this. I asked to return if she has any new or worsening symptoms. Patient agreeable to this plan was discharged in stable condition Undiagnosed new problem with uncertain prognosis? @ -No Drug Therapy requiring intensive monitoring for toxicity (Heparin, Nitro, Insulin, Cardizem)? @ -No Were any procedures done? @ -No Diagnosis/symptom? @ -Chronic neck pain, chronic chest pain Acute, or Chronic, or Acute on Chronic? @ -Chronic Uncomplicated (without systemic symptoms) or Complicated (systemic symptoms)? @ -Complicated Side effects of treatment? @ -No Exacerbation, Progression, or Severe Exacerbation? @ -No Poses a threat to life or bodily function? How? (Chest pain, [place], [place], pneumonia, PE, COPD, DKA, ARF, appy, cholecystitis, CVA, Diverticulitis, Homicidal, Suicidal, threat to staff... and all critical care pts) @ -No Disposition Clinical Impression: Cervical radiculopathy Disposition: HOME SELF-CARE Condition: Stable Instructions (If sedation given, give patient instructions): Chronic Neck Pain (DC) Additional Instructions: Please follow-up with Dr. Alex in office to discuss your treatment options in regards to your neck pain. Return for any new or worsening symptoms Is patient prescribed a controlled substance at d/c from ED?: Yes When asked, does pt state using other controlled substances?: No If prescribed controlled substance>3 days was MAPS reviewed?: Prescribed <3 Days If opioid is for acute pain is fill amount 7 days or less?: Yes Referrals: Andrzej Wheeler MD [Primary Care Provider] - 1-2 days Mark Alex DO [Doctor of Osteopathic Medicine] - 1-2 days Time of Disposition: 10:12
[2024-06-07] MEDS: MORPHINE SULFATE 4 MG/ML SYRINGE IVP STA (10:39)
[2024-06-07 11:16] VITALS: BP 136/62; PULSE 87
== END 2024-06-07 11:16 | disposition home or self-care (01) ==
LOC: EC 08:36
DX: M54.12 Radiculopathy, cervical region (principal); M54.2 Cervicalgia; R07.9 Chest pain, unspecified; F17.200 Nicotine dependence, unspecified, uncomplicated; Z88.0 Allergy status to penicillin; Z88.1 Allergy status to other antibiotic agents; Z88.2 Allergy status to sulfonamides; Z88.8 Allergy status to other drugs, medicaments and biological substances
CPT/HCPCS: 36415; 93005; 80053; 84484; 85025; 99285; 96374; 96376; 96375; J2060; J2270

== ENCOUNTER 2024-06-09 09:06 | Observation (INO) | payer MEDICARE ==
--- NOTE | 2024-06-09 09:52 | ED ---
Recheck HPI - General Source: patient, RN notes reviewed Mode of arrival: ambulatory Limitations: no limitations <Karen Carrillo - Last Filed: 06/09/24 09:50> - General Source: patient, RN notes reviewed Mode of arrival: ambulatory Limitations: no limitations <Gino Ramírez - Last Filed: 06/09/24 13:42> - General Chief Complaint: Recheck/Abnormal Lab/Rx Stated Complaint: muscle spasms Time Seen by Provider: 06/09/24 09:45 - History of Present Illness Initial Comments: Quick Note: This is a 69-year-old female who presents to the emergency department for muscle spasms. Patient has a history of chronic pain and muscle spasms and states that for the last couple of days she has had an increase in he r spasms which are now going down to the lower back. (Karen Carrillo) Patient is a 69-year-old female presenting to the emergency department with concerns for spasms. Patient has chronic hip pain and spasms there however now is over most of her body. This includes her hip and leg, entire back, arms and chest and even up to her scalp. Patient is urinating more frequently. Patient states discomfort is severe (Gino Ramírez) - Related Data Home Medications Medication Instructions Recorded Confirmed Montelukast [Singulair] 10 mg PO HS 12/17/13 06/09/24 Levothyroxine Sodium [Synthroid] 150 mcg PO DAILY 03/29/20 06/09/24 Budesonide/Formoterol Fumarate 2 puff INHALATION RT-BID 06/12/21 06/09/24 [Symbicort 160-4.5 Mcg Inhaler] Famotidine [Pepcid] 20 mg PO BID 09/03/21 06/09/24 Tamsulosin [Flomax] 0.4 mg PO DAILY 10/26/21 06/09/24 Ipratropium-Albuterol Nebulize 3 ml INHALATION RT-QID PRN 11/13/22 06/09/24 [Duoneb 0.5 mg-3 mg/3 ml Soln] Ibandronate Sodium [Boniva] 150 mg PO Q30D 05/03/23 06/09/24 clonazePAM [KlonoPIN ODT] 0.25 mg PO HS 12/12/23 06/09/24 lamoTRIgine [LaMICtal] 100 mg PO BID 03/18/24 06/09/24 lisinopriL [Prinivil] 20 mg PO DAILY 04/21/24 06/09/24 Metoprolol Tartrate [Lopressor] 25 mg PO BID 05/16/24 06/09/24 Gabapentin 300 mg PO TID 06/01/24 06/09/24 busPIRone HCL [Buspar] 30 mg PO BID 06/09/24 06/09/24 Previous Rx's Medication Instructions Recorded Albuterol Inhaler [Ventolin Hfa 2 puff INHALATION RT-QID PRN #1 11/17/22 Inhaler] each Pyridoxine [Vitamin B-6] 50 mg PO DAILY #30 tab 03/28/24 Divalproex ER [Depakote ER] 250 mg PO BID #60 tab 05/26/24 OLANZapine [ZyPREXA] 5 mg PO HS #30 tab 05/26/24 Sodium Chloride Tab 1 gm PO DAILY #30 tab 05/26/24 Venlafaxine HCl ER [Effexor XR] 75 mg PO DAILY #30 cap 05/26/24 Acetaminophen Tab [Tylenol] 650 mg PO Q6HR PRN tab 06/02/24 HYDROcodone/APAP 5-325MG [[place] 1 tab PO Q6HR PRN 3 Days #12 tab 06/07/24 5-325] Allergies Allergy/AdvReac Type Severity Reaction Status Date / Time codeine Allergy Unknown Verified 06/09/24 12:55 Childhood Penicillins Allergy Rash/Hives Verified 06/09/24 12:55 Sulfa (Sulfonamide Allergy Rash/Hives Verified 06/09/24 12:55 Antibiotics) Review of Systems ROS Other: All systems not noted in ROS Statement are negative. <Karen Carrillo - Last Filed: 06/09/24 09:50> ROS Other: All systems not noted in ROS Statement are negative. Constitutional: Denies: fever Eyes: Denies: eye pain ENT: Denies: ear pain Respiratory: Denies: dyspnea Cardiovascular: Reports: as per HPI Endocrine: Denies: fatigue Gastrointestinal: Denies: abdominal pain Genitourinary: Reports: frequency Musculoskeletal: Reports: back pain Neurological: Denies: confusion Psychiatric: Reports: anxiety <Gino Ramírez - Last Filed: 06/09/24 13:42> ROS Statement: Those systems with pertinent positive or pertinent negative responses have been documented in the HPI. Past Medical History Past Medical History: Asthma, Heart Failure, COPD, Fibromyalgia, GERD/Reflux, Hypertension, Osteoarthritis (OA), Pneumonia, Pulmonary Embolus (PE), Skin Disorder, Thyroid Disorder Additional Past Medical History / Comment(s): Spinal Stenosis, Cervical disc disease/stenosis, scoliosis, recently having numbness/tingling L side of face/neck, recently saw hi teacher for L hemidiaphragmatic elevation-pt states she was told this was probably genetic, recently bronchitis and past bronchitis, pt states recent med change (water pill) d/t electrolyte probl em/kidney function being affected, pt states she has had pulmonary emboli, past bilateral lower extremity cellulitis, edema lower extremities, IBS, hemorrhoids, benign colon polyps, sinus problems, UTIs, bacteremia/sepsis, cardiac murmur, past L ankle and L wrist fractures. History of Any Multi-Drug Resistant Organisms: MRSA Date of last positivie culture/infection: 03/2024 MDRO Source:: Knee Past Surgical History: Bariatric Surgery, Section, Cholecystectomy, Hysterectomy, Tonsillectomy Additional Past Surgical History / Comment(s): EGD, colonoscopies, gastric bypass, surgery for deviated septum, left cataract removal (having laser procedure on that eye 11/24/23) Past Anesthesia/Blood Transfusion Reactions: Previous Problems w/ Anesthesia Additional Past Anesthesia/Blood Transfusion Reaction / Comment(s): itching after hysterectomy, some kind of breathing problem after gastric bypass-not sure what happened Past Psychological History: Anxiety, Bipolar, Depression, Panic Disorder Smoking Status: Current every day smoker Past Alcohol Use History: None Reported Past Drug Use History: None Reported - Past Family History Mother Family Medical History: Congestive Heart Failure (CHF), Hypertension Father History Unknown: Yes Additional Family Medical History / Comment(s): Father at the age of 45 yrs d/t having had rheumatic fever as a child and heart valve disease. <Karen Carrillo - Last Filed: 06/09/24 09:50> General Exam Limitations: no limitations <Karen Carrillo - Last Filed: 06/09/24 09:50> Limitations: no limitations General appearance: alert, anxious Head exam: Present: normocephalic Eye exam: Present: normal appearance Neck exam: Present: normal inspection Respiratory exam: Present: normal lung sounds bilaterally Cardiovascular Exam: Present: regular rate, normal rhythm Expanded Peripheral pulses: 2+: Radial (R), Radial (L), Dorsalis Pedis (R), Dorsalis Pedis (L) GI/Abdominal exam: Present: soft. Absent: tenderness, pulsatile mass Extremities exam: Present: normal inspection, full ROM. Absent: tenderness Neurological exam: Present: alert, CN II-XII intact. Absent: motor sensory deficit Psychiatric exam: Present: anxious Skin exam: Present: normal color <Gino Ramírez - Last Filed: 06/09/24 13:42> - General Exam Comments Initial Comments: Visual Physical Exam Vital signs reviewed General: Well-appearing, nontoxic, no acute distress. Head: Normocephalic, atraumatic Eyes: PERRLA, EOMI ENT: Airway patent Chest: Nonlabored breathing Skin: No visual rash, normal skin tone Neuro: Alert and oriented 3 Musculoskeletal: No gross abnormalities (Karen Carrillo) Course Vital Signs 06/09/24 09:09 Temperature 97.7 F Pulse Rate 76 Respiratory 20 Rate Blood Pressure 194/101 O2 Sat by Pulse 93 L Oximetry Medical Decision Making <Karen Carrillo - Last Filed: 06/09/24 09:50> - Lab Data Result diagrams: 06/09/24 10:37 06/09/24 10:37 <Gino Ramírez - Last Filed: 06/09/24 13:42> - Medical Decision Making I performed the QuickNote portion of this chart. Signed Karen Carrillo PA-C. (Karen Carrillo) EKG interpreted by myself shows atrial rhythm with a rate of 64. NM 165. QRS 133. QT 402. QTc 411. Right axis. Nonspecific intraventricular conduction delay. No acute ST change. Was pt. sent in by a medical professional or institution (HERMINIA Shepard, DIRECTOR STYLE, urgent care, hospital, or prison...) When possible be specific @ -No Did you speak to anyone other than the patient for history (EMS, parent, family, police, friend...)? What history was obtained from this source @ -No Did you review nursing and triage notes (agree or disagree)? Why? @ -I reviewed and agree with nursing and triage notes Were old charts reviewed (outside hosp., previous admission, EMS record, old EKG, old radiological studies, urgent care reports/EKG's, prison records)? Report findings @ -Previous sodium levels reviewed Differential Diagnosis (chest pain, altered mental status, abdominal pain women, abdominal pain men, vaginal bleeding, weakness, fever, dyspnea, syncope, headache, dizziness, GI bleed, back pain, seizure, CVA, palpatations, mental health, musculoskeletal)? @ -Differential Weakness: Hypoglycemia, shock, sepsis, hyponatremia, anemia, infection, DC, ETOH, adverse medicine reaction, overdose, stroke, this is not meant to be an all-inclusive list. EKG interpreted by me (3pts min.). @ -As above X-rays interpreted by me (1pt min.). @ -None done CT interpreted by me (1pt min.). @ -None done U/S interpreted by me (1pt. min.). @ -None done What testing was considered but not performed or refused? (CT, X-rays, U/S, lab s)? Why? @ -None What meds were considered but not given or refused? Why? @ -None Did you discuss the management of the patient with other professionals (professionals i.e. , PA, DIRECTOR STYLE, lab, RT, psych nurse, social media strategist, customer service coordinator, teacher, chief risk officer, therapeutic case manager)? Give summary @ -Case discussed with Dr. Sol who will admit covering Dr. Wheeler Was smoking cessation discussed for >3mins.? @ -No Was critical care preformed (if so, how long)? @ -No Were there social determinants of health that impacted care today? How? (Homelessness, low income, unemployed, alcoholism, drug addiction, tr ansportation, low edu. Level, literacy, decrease access to med. care, care home, rehab)? @ -No Was there de-escalation of care discussed even if they declined (Discuss DNR or withdrawal of care, Hospice)? DNR status @ -No What co-morbidities impacted this encounter? (DM, HTN, Smoking, COPD, CAD, Cancer, CVA, ARF, Chemo, Hep., AIDS, mental health diagnosis, sleep apnea, morbid obesity)? @ -History of hyponatremia Was patient admitted / discharged? Hospital course, mention meds given and route, prescriptions, significant lab abnormalities, going to OR and other pertinent info. @ -Patient presents with muscle spasms and anxiety and hyponatremia. Patient will be held for IV fluids and medications. Admission orders written. Undiagnosed new problem with uncertain prognosis? @ -No Drug Therapy requiring intensive monitoring for toxicity (Heparin, Nitro, Insulin, Cardizem)? @ -No Were any procedures done? @ -No Diagnosis/symptom? @ -Hyponatremia Acute, or Chronic, or Acute on Chronic? @ -Acute Uncomplicated (without systemic symptoms) or Complicated (systemic symptoms)? @ -Default Side effects of treatment? @ -No Exacerbation, Progression, or Severe Exacerbation? @ -No Poses a threat to life or bodily function? How? (Chest pain, USA, DC, pneumonia, PE, COPD, DKA, ARF, appy, cholecystitis, CVA, Diverticulitis, Homicidal, Suicidal, threat to staff... and all critical care pts) @ -Threat to metabolic function (Gino Ramírez) - Lab Data Lab Results 06/09/24 06/09/24 06/09/24 Range/Units 10:37 10:37 12:06 WBC 9.3 (3.8-10.6) k/uL RBC 4.20 (3.80-5.40) m/uL Hgb 12.9 (11.4-16.0) gm/dL Hct 41.4 (34.0-46.0) % MCV 98.8 (80.0-100.0) fL MCH 30.9 (25.0-35.0) pg MCHC 31.3 (31.0-37.0) g/dL RDW 13.0 (11.5-15.5) % Plt Count 324 (150-450) k/uL MPV 6.9 Neutrophils % 69 % Lymphocytes % 19 % Monocytes % 6 % Eosinophils % 3 % Basophils % 1 % Neutrophils # 6.5 (1.3-7.7) k/uL Lymphocytes # 1.8 (1.0-4.8) k/uL Monocytes # 0.6 (0-1.0) k/uL Eosinophils # 0.2 (0-0.7) k/uL Basophils # 0.1 (0-0.2) k/uL Sodium 128 L (137-145) mmol/L Potassium 5.0 (3.5-5.1) mmol/L Chloride 88 L (98-107) mmol/L Carbon Dioxide 36 H (22-30) mmol/L Anion Gap 4 mmol/L BUN 12 (7-17) mg/dL Creatinine 0.49 L (0.52-1.04) mg/dL Est GFR (CKD-EPI)AfAm >90 (>60 ml/min/1.73 sqM) Est GFR (CKD-EPI)NonAf >90 (>60 ml/min/1.73 sqM) Glucose 118 H (74-99) mg/dL Calcium 10.0 (8.4-10.2) mg/dL Magnesium 1.7 (1.6-2.3) mg/dL Total Bilirubin 0.4 (0.2-1.3) mg/dL AST 59 H (14-36) U/L ALT 82 H (4-34) U/L Alkaline Phosphatase 88 (38-126) U/L Troponin I <0.012 (0.000-0.034) ng/mL Total Protein 6.7 (6.3-8.2) g/dL Albumin 4.3 (3.5-5.0) g/dL Disposition <Karen Carrillo - Last Filed: 06/09/24 09:50> Is patient prescribed a controlled substance at d/c from ED?: No Time of Disposition: 13:42 <Gino Ramírez - Last Filed: 06/09/24 13:42> Clinical Impression: Hyponatremia Disposition: ADMITTED IP TO THIS HOSP Referrals: Andrzej Wheeler MD [Primary Care Provider] - 1-2 days
[2024-06-09 10:46] LABS: Basophils # (A) 0.1 k/uL (0-0.2); Basophils % (A) 1 %; Eosinophils # (A) 0.2 k/uL (0-0.7); Eosinophils % (A) 3 %; HCT 41.4 % (34.0-46.0); HGB 12.9 gm/dL (11.4-16.0); Lymphocytes # (A) 1.8 k/uL (1.0-4.8); Lymphocytes % (A) 19 %; MCH 30.9 pg (25.0-35.0); MCHC 31.3 g/dL (31.0-37.0); MCV 98.8 fL (80.0-100.0); Mean Platelet Volume 6.9; Monocytes # (A) 0.6 k/uL (0-1.0); Monocytes % (A) 6 %; Neutrophils # (A) 6.5 k/uL (1.3-7.7); Neutrophils % (A) 69 %; Platelet Count 324 k/uL (150-450); WBC 9.3 k/uL (3.8-10.6)
[2024-06-09 11:13] LABS: ALT 82 U/L (4-34); AST 59 U/L (14-36); African American GFR (CKD) >90 (>60 ml/min/1.73 sqM); Albumin 4.3 g/dL (3.5-5.0); Alkaline Phosphatase 88 U/L (38-126); Anion Gap 4 mmol/L; Blood Urea Nitrogen 12 mg/dL (7-17); Carbon Dioxide 36 mmol/L (22-30); Chloride 88 mmol/L (98-107); Glucose 118 mg/dL (74-99); Magnesium 1.7 mg/dL (1.6-2.3); Non-African American GFR(CKD) >90 (>60 ml/min/1.73 sqM); Sodium 128 mmol/L (137-145); Total Bilirubin 0.4 mg/dL (0.2-1.3); Total Protein 6.7 g/dL (6.3-8.2)
[2024-06-09] MEDS: LORazepam 2 MG/ML INJ IV STA (12:04)
[2024-06-09] MEDS: SODIUM CHLORIDE 0.9% 1,000 ML IV STA (12:04)
[2024-06-09] MEDS ORDERED: NALOXONE 0.4 MG/ML 1 ML VIAL IV PRN (13:44)
[2024-06-09] MEDS ORDERED: ACETAMINOPHEN TAB 325 MG TAB PO PRN (13:44)
[2024-06-09] MEDS: SODIUM CHLORIDE 0.9% 1,000 ML IV SCH (14:48)
[2024-06-09] MEDS: ORPHENADRINE 30 MG/ML 2 ML VIAL IVP STA (14:49)
[2024-06-09] MEDS: GABAPENTIN 300 MG CAP PO SCH (16:55)
[2024-06-09] MEDS: HYDROcodone/APAP 5-325MG 1 EACH TAB PO PRN (16:55)
[2024-06-09] MEDS: LORazepam 2 MG/ML INJ IV PRN (19:07)
[2024-06-09] MEDS: SYMBICORT 160-4.5 MCG INHALER INHALATION SCH (20:00)
[2024-06-09] MEDS: METOPROLOL TARTRATE 25 MG TAB PO SCH (22:31)
[2024-06-09] MEDS: lamoTRIgine 100 MG TAB PO SCH (22:31)
[2024-06-09] MEDS: OLANZapine 5 MG TAB PO SCH (22:31)
[2024-06-09] MEDS: busPIRone HCl 10 MG TAB PO SCH (22:31)
[2024-06-09] MEDS: FAMOTIDINE 20 MG TAB PO SCH (22:31)
[2024-06-09] MEDS: MONTELUKAST 10 MG TAB PO SCH (22:31)
[2024-06-09] MEDS: clonazePAM 0.5 MG TAB PO SCH (22:33)
[2024-06-09] MEDS: traMADol 50 MG TAB PO PRN (22:36)
[2024-06-10] MEDS: KETOROLAC 15 MG/ML 1 ML VIAL IVP STA (00:59)
[2024-06-10] MEDS: DIVALPROEX ER 250 MG TAB.ER.24H PO SCH (01:00)
[2024-06-10] MEDS: LEVOTHYROXINE 75 MCG TAB PO SCH (05:51)
[2024-06-10] MEDS: lisinopriL 20 MG TAB PO SCH (07:21)
[2024-06-10] MEDS: VENLAFAXINE HCL ER 75 MG CAP PO SCH (07:21)
[2024-06-10] MEDS: TAMSULOSIN 0.4 MG CAP.ER.24H PO SCH (07:21)
[2024-06-10] MEDS: PYRIDOXINE 50 MG TAB PO SCH (07:22)
[2024-06-10] MEDS: SODIUM CHLORIDE TAB 1 GM TAB PO SCH (07:22)
[2024-06-10] MEDS: IPRATROPIUM-ALBUTEROL 3 ML NEB INHALATION PRN (07:58)
[2024-06-10 10:36] LABS: ALT 52 U/L (8-44); AST 41 U/L (13-35); Albumin 3.6 g/dL (3.8-4.9); Albumin/Globulin Ratio 2.12 Ratio (1.60-3.17); Alkaline Phosphatase 73 U/L (41-126); Bilirubin, Conjugated <0.20 mg/dL (0.20-0.40); Bilirubin,Unconjugated >0 mg/dL (0.20-1.00); Blood Urea Nitrogen 7.2 mg/dL (9.0-27.0); Calcium 9.5 mg/dL (8.7-10.3); Carbon Dioxide 32.9 mmol/L (21.6-31.8); Chloride 94 mmol/L (96-109); Globulin 1.7 g/dL (1.6-3.3); Glucose 71 mg/dL (70-110); Magnesium 1.6 mg/dL (1.5-2.4); Potassium 4.6 mmol/L (3.5-5.5); Sodium 134 mmol/L (135-145); Total Bilirubin 0.2 mg/dL (0.3-1.2); Total Protein 5.3 g/dL (6.2-8.2)
[2024-06-10 10:47] LABS: Basophils % (A) 1.1 %; Eosinophils # (A) 0.15 X 10*3/uL (0.04-0.35); Eosinophils % (A) 1.7 %; HCT 37.8 % (37.2-46.3); HGB 11.8 g/dL (12.0-15.0); Lymphocytes # (A) 2.15 X 10*3/uL (0.90-5.00); Lymphocytes % (A) 23.8 %; MCH 30.7 pg (27.0-32.0); MCHC 31.2 g/dL (32.0-37.0); MCV 98.4 FL (80.0-97.0); Mean Platelet Volume 9.6 FL (9.5-12.2); Monocytes # (A) 0.84 X 10*3/uL (0.20-1.00); Monocytes % (A) 9.3 %; NRBC Per 100 WBC 0 X 10*3/uL (0.00-0.01); Neutrophils # (A) 5.76 X 10*3/uL (1.80-7.70); Neutrophils % (A) 63.8 %; Platelet Count 302 X 10*3/uL (140-440); RBC 3.84 X 10*6/uL (4.10-5.20); WBC 9.03 X 10*3/uL (4.50-10.00)
[2024-06-10 14:14] LABS: Appearance,Urine Clear (Clear); Bilirubin,Urine Negative (Negative); Blood,Urine Negative (Negative); Color,Urine Colorless; Glucose,Urine (UA) Negative (Negative); Ketones,Urine Negative (Negative); Leukocyte Esterase,Urine Negative (Negative); Nitrite,Urine Negative (Negative); Protein,Urine Negative (Negative); Specific Gravity,Urine 1.011 (1.001-1.035); Urobilinogen,Urine <2.0 mg/dL (<2.0)
[2024-06-10] MEDS: ALBUTEROL NEBULIZED 2.5 MG/3 ML INHALATION PRN (16:10)
--- NOTE | 2024-06-10 17:37 | P.HPIM ---
History of Present Illness H&P Date: 06/09/24 Chief Complaint: Muscle spasms 69-year-old female, history of hypertension, hypothyroidism, fibromyalgia, asthma/COPD, PE, presenting to the emergency department with concerns for spasms. Patient has chronic hip pain and spasms there however now is over most of her body. This includes her hip and leg, entire back, arms and chest and even up to her scalp. Patient is urinating more frequently. Patient states discomfort is severe Blood work completed in ED reveals a sodium of 128, potassium 5.2, BUNs/creatinine of 12/0.49 and blood glucose of 118 EKG reveals atrial rhythm with no acute ST or T wave changes Review of Systems REVIEW OF SYSTEMS: CONSTITUTIONAL: No fever, no malaise, no fatigue. HEENT: No recent visual problems or hearing problems. Denied any sore throat. CARDIOVASCULAR: No chest pain, orthopnea, PND, no palpitations, no syncope. PULMONARY: No shortness of breath, no cough, no hemoptysis. GASTROINTESTINAL: No diarrhea, no nausea, no vomiting, no abdominal pain. NEUROLOGICAL: No headaches, no weakness, no numbness. HEMATOLOGICAL: Denies any bleeding or petechiae. GENITOURINARY: Denies any burning micturition, frequency, or urgency. MUSCULOSKELETAL/RHEUMATOLOGICAL: Denies any joint pain, swelling, or any muscle pain. ENDOCRINE: Denies any polyuria or polydipsia. The rest of the 14-point review of systems is negative. Past Medical History Past Medical History: Asthma, Heart Failure, COPD, Fibromyalgia, GERD/Reflux, Hypertension, Osteoarthritis (OA), Pneumonia, Pulmonary Embolus (PE), Skin Disorder, Thyroid Disorder Additional Past Medical History / Comment(s): Spinal Stenosis, Cervical disc disease/stenosis, scoliosis, recently having numbness/tingling L side of face/neck, recently saw brush trimming machine setter for L hemidiaphragmatic elevation-pt states she was told this was probably genetic, recently bronchitis and past bronchitis, pt states recent med change (water pill) d/t electrolyte problem/kidney function being affected, pt states she has had pulmonary emboli, past bilateral lower extremity cellulitis, edema lower extremities, IBS, hemorrhoids, benign colon polyps, sinus problems, UTIs, bacteremia/sepsis, cardiac murmur, past L ankle and L wrist fractures. History of Any Multi-Drug Resistant Organisms: MRSA Date of last positivie culture/infection: 03/2024 MDRO Source:: Knee Past Surgical History: Bariatric Surgery, Section, Cholecystectomy, Hysterectomy, Tonsillectomy Additional Past Surgical History / Comment(s): EGD, colonoscopies, gastric bypass, surgery for deviated septum, left cataract removal (having laser procedure on that eye 11/24/23) Past Anesthesia/Blood Transfusion Reactions: Previous Problems w/ Anesthesia Additional Past Anesthesia/Blood Transfusion Reaction / Comment(s): itching after hysterectomy, some kind of breathing problem after gastric bypass-not sure what happened Past Psychological History: Anxiety, Bipolar, Depression, Panic Disorder Smoking Status: Current every day smoker Past Alcohol Use History: None Reported Past Drug Use History: None Reported - Past Family History Mother Family Medical History: Congestive Heart Failure (CHF), Hypertension Father History Unknown: Yes Additional Family Medical History / Comment(s): Father at the age of 45 yrs d/t having had rheumatic fever as a child and heart valve disease. Medications and Allergies Home Medications Medication Instructions Recorded Confirmed Type Montelukast [Singulair] 10 mg PO HS 12/17/13 06/09/24 History Levothyroxine Sodium [Synthroid] 150 mcg PO DAILY 03/29/20 06/09/24 History Budesonide/Formoterol Fumarate 2 puff INHALATION RT-BID 06/12/21 06/09/24 His tory [Symbicort 160-4.5 Mcg Inhaler] Famotidine [Pepcid] 20 mg PO BID 09/03/21 06/09/24 History Tamsulosin [Flomax] 0.4 mg PO DAILY 10/26/21 06/09/24 History Ipratropium-Albuterol Nebulize 3 ml INHALATION RT-QID PRN 11/13/22 06/09/24 History [Duoneb 0.5 mg-3 mg/3 ml Soln] Albuterol Inhaler [Ventolin Hfa 2 puff INHALATION RT-QID PRN #1 11/17/22 06/09/24 Rx Inhaler] each Ibandronate Sodium [Boniva] 150 mg PO Q30D 05/03/23 06/09/24 History clonazePAM [KlonoPIN ODT] 0.25 mg PO HS 12/12/23 06/09/24 History lamoTRIgine [LaMICtal] 100 mg PO BID 03/18/24 06/09/24 History Pyridoxine [Vitamin B-6] 50 mg PO DAILY #30 tab 03/28/24 06/09/24 Rx lisinopriL [Prinivil] 20 mg PO DAILY 04/21/24 06/09/24 History Metoprolol Tartrate [Lopressor] 25 mg PO BID 05/16/24 06/09/24 History Divalproex ER [Depakote ER] 250 mg PO BID #60 tab 05/26/24 06/09/24 Rx OLANZapine [ZyPREXA] 5 mg PO HS #30 tab 05/26/24 06/09/24 Rx Sodium Chloride Tab 1 gm PO DAILY #30 tab 05/26/24 06/09/24 Rx Venlafaxine HCl ER [Effexor XR] 75 mg PO DAILY #30 cap 05/26/24 06/09/24 Rx Gabapentin 300 mg PO TID 06/01/24 06/09/24 History Acetaminophen Tab [Tylenol] 650 mg PO Q6HR PRN tab 06/02/24 06/09/24 Rx HYDROcodone/APAP 5-325MG [[place] 1 tab PO Q6HR PRN 3 Days #12 tab 06/07/24 06/09/24 Rx 5-325] busPIRone HCL [Buspar] 30 mg PO BID 06/09/24 06/09/24 History Allergies Allergy/AdvReac Type Severity Reaction Status Date / Time codeine Allergy Unknown Verified 06/09/24 12:55 Childhood Penicillins Allergy Rash/Hives Verified 06/09/24 12:55 Sulfa (Sulfonamide Allergy Rash/Hives Verified 06/09/24 12:55 Antibiotics) Physical Exam Vitals: Vital Signs Temp Pulse Resp BP Pulse Ox 06/09/24 17:15 72 16 192/88 95 06/09/24 16:54 67 20 191/84 97 06/09/24 14:49 68 20 184/84 97 06/09/24 09:09 97.7 F 76 20 194/101 93 L Intake and Output 06/09/24 06/09/24 06/09/24 06:59 14:59 22:59 Other: Weight 52.617 kg General appearance: alert, anxious Head exam: Present: normocephalic Eye exam: Present: normal appearance Neck exam: Present: normal inspection Respiratory exam: Present: normal lung sounds bilaterally Cardiovascular Exam: Present: regular rate, normal rhythm Expanded Peripheral pulses: 2+: Radial (R), Radial (L), Dorsalis Pedis (R), Dorsalis Pedis (L) GI/Abdominal exam: Present: soft. Absent: tenderness, pulsatile mass Extremities exam: Present: normal inspection, full ROM. Absent: tenderness Neurological exam: Present: alert, CN II-XII intact. Absent: motor sensory deficit Psychiatric exam: Present: anxious Skin exam: Present: normal color Results CBC & Chem 7: 06/10/24 03:48 06/10/24 03:48 Labs: Abnormal Lab Results - Last 24 Hours (Table) 06/09/24 Range/Units 10:37 Sodium 128 L (137-145) mmol/L Chloride 88 L (98-107) mmol/L Carbon Dioxide 36 H (22-30) mmol/L Creatinine 0.49 L (0.52-1.04) mg/dL Glucose 118 H (74-99) mg/dL AST 59 H (14-36) U/L ALT 82 H (4-34) U/L Assessment and Plan Assessment: 1. Hyponatremia; sodium at 128 upon arrival to ED; patient complaining of severe back muscle spasms -Patient has been placed on IV fluids in form of normal saline at rate of 75 cc an hour; will monitor renal function electrolytes closely and make further recommendations 2. Severe muscle spasms; we will add muscle relaxer; patient received Norflex 60 mg IV in ED 3. Hypertension; lisinopril 20 mg daily; metoprolol 25 mg twice daily 4. Hypothyroidism; levothyroxine 150 mcg daily 5. COPD/asthma; not in exacerbation; patient is currently on Symbicort; continue with Singulair 10 mg daily 6. Anxiety/depression; Effexor XR 75 mg daily, Klonopin 0.25 mg nightly, BuSpar 30 mg twice daily; continue home dose of Depakote and Lamictal DVT prophylaxis; SCDs CODE STATUS; full code
--- NOTE | 2024-06-10 17:41 | P.PN ---
Subjective Progress Note Date: 06/10/24 69-year-old female, history of hypertension, hypothyroidism, fibromyalgia, asthma/COPD, PE, presenting to the emergency department with concerns for spasms. Patient has chronic hip pain and spasms there however now is over most of her body. This includes her hip and leg, entire back, arms and chest and even up to her scalp. Patient is urinating more frequently. Patient states discomfort is severe Blood work completed in ED reveals a sodium of 128, potassium 5.2, BUNs/creatinine of 12/0.49 and blood glucose of 118 EKG reveals atrial rhythm with no acute ST or T wave changes Objective - Vital Signs Vital signs: Vital Signs Temp 98.1 F 06/10/24 07:06 Pulse 63 06/10/24 07:06 Resp 19 06/10/24 07:06 BP 187/69 06/10/24 07:06 Pulse Ox 92 L 06/10/24 07:06 FiO2 Intake & Output 06/09/24 06/10/24 06/10/24 18:59 06:59 18:59 Output Total 400 Balance -400 Weight 52.617 kg 52.617 kg Output: Urine 400 Other: Voiding Method External Catheter External Catheter - Exam General appearance: alert, anxious Head exam: Present: normocephalic Eye exam: Present: normal appearance Neck exam: Present: normal inspection Respiratory exam: Present: normal lung sounds bilaterally Cardiovascular Exam: Present: regular rate, normal rhythm Expanded Peripheral pulses: 2+: Radial (R), Radial (L), Dorsalis Pedis (R), Dorsalis Pedis (L) GI/Abdominal exam: Present: soft. Absent: tenderness, pulsatile mass Extremities exam: Present: normal inspection, full ROM. Absent: tenderness Neurological exam: Present: alert, CN II-XII intact. Absent: motor sensory deficit Psychiatric exam: Present: anxious Skin exam: Present: normal color - Labs CBC & Chem 7: 06/10/24 03:48 06/10/24 03:48 Labs: Abnormal Lab Results - Last 24 Hours (Table) 06/10/24 06/10/24 Range/Units 03:48 03:48 RBC 3.84 L (4.10-5.20) X 10*6/uL Hgb 11.8 L (12.0-15.0) g/dL MCV 98.4 H (80.0-97.0) [place] MCHC 31.2 L (32.0-37.0) g/dL Sodium 134 L (135-145) mmol/L Chloride 94 L (96-109) mmol/L Carbon Dioxide 32.9 H (21.6-31.8) mmol/L BUN 7.2 L (9.0-27.0) mg/dL Creatinine 0.5 L (0.6-1.5) mg/dL Total Bilirubin 0.2 L (0.3-1.2) mg/dL Unconjugated Bilirubin >0 L (0.20-1.00) mg/dL AST 41 H (13-35) U/L ALT 52 H (8-44) U/L Total Protein 5.3 L (6.2-8.2) g/dL Albumin 3.6 L (3.8-4.9) g/dL Assessment and Plan Assessment: 1. Hyponatremia; sodium at 128 upon arrival to ED; patient complaining of severe back muscle spasms -Patient has been placed on IV fluids in form of normal saline at rate of 75 cc an hour; will monitor renal function electrolytes closely and make further recommendations 2. Severe muscle spasms; we will add muscle relaxer; patient received Norflex 6 0 mg IV in ED 3. Hypertension; lisinopril 20 mg daily; metoprolol 25 mg twice daily 4. Hypothyroidism; levothyroxine 150 mcg daily 5. COPD/asthma; not in exacerbation; patient is currently on Symbicort; continue with Singulair 10 mg daily 6. Anxiety/depression; Effexor XR 75 mg daily, Klonopin 0.25 mg nightly, BuSpar 30 mg twice daily; continue home dose of Depakote and Lamictal DVT prophylaxis; SCDs CODE STATUS; full code
[2024-06-10] MEDS: CYCLOBENZAPRINE 10 MG TAB PO PRN (21:16)
[2024-06-11 18:11] VITALS: BP 161/72; PULSE 66; RESP 19; TEMP 98.1
== END 2024-06-11 16:01 | disposition home or self-care (01) ==
LOC: EC 09:06 → 6NMEDSUR 13:45 → 4SSUR 22:24
PROVIDERS: ADMIT Internal Medicine; ATTEND Internal Medicine
DX: M62.830 Muscle spasm of back (principal); E87.1 Hypo-osmolality and hyponatremia; J44.9 Chronic obstructive pulmonary disease, unspecified; I11.0 Hypertensive heart disease with heart failure; I50.9 Heart failure, unspecified; K21.9 Gastro-esophageal reflux disease without esophagitis; F31.9 Bipolar disorder, unspecified; F41.0 Panic disorder [episodic paroxysmal anxiety]; E03.9 Hypothyroidism, unspecified; F17.200 Nicotine dependence, unspecified, uncomplicated; Z86.711 Personal history of pulmonary embolism; Z79.51 Long term (current) use of inhaled steroids; Z79.890 Hormone replacement therapy; Z79.899 Other long term (current) drug therapy; Z88.0 Allergy status to penicillin; Z88.2 Allergy status to sulfonamides; Z88.5 Allergy status to narcotic agent
CPT/HCPCS: 96376 ×3; 96375 ×2; 96374; 99284; 36415; 94640 ×5; 93005; 80164; 80053; 80048; 80076; 80175; 83735 ×2; 84484; 85025 ×2; 81003; G0378 ×4; J2060 ×3; J2360; J1885

== ENCOUNTER 2024-06-20 07:18 | Inpatient (IN) | payer MEDICARE ==
--- NOTE | 2024-06-20 08:14 | ED ---
General Adult HPI - General Chief complaint: Back Pain/Injury Stated complaint: back pain/body pain Time Seen by Provider: 06/20/24 07:35 Source: patient, family, RN notes reviewed, old records reviewed Mode of arrival: wheelchair Limitations: no limitations - History of Present Illness Initial comments: This is a 69-year-old female who comes in stating that she is extremely anxious and she feels like she is having some muscle spasms all over her body. Patient states she is having some hip pain and goes into her back but she states this is chronic it just feels a little worse today. Patient states she has a headache but she considers it mild. Patient denies any numbness weakness. Patient has any injury or trauma. Patient denies chest pain or palpitations. Patient states she has some mild shortness of breath but does states she has a history of CHF. Patient states she was recently in the hospital for low sodium but she does not know why she had low sodium and she does not believe she was told why she had it. Patient denies any fever chills. Patient has home oxygen. - Related Data Home Medications Medication Instructions Recorded Confirmed Montelukast [Singulair] 10 mg PO HS 12/17/13 06/09/24 Levothyroxine Sodium [Synthroid] 150 mcg PO DAILY 03/29/20 06/09/24 Budesonide/Formoterol Fumarate 2 puff INHALATION RT-BID 06/12/21 06/09/24 [Symbicort 160-4.5 Mcg Inhaler] Famotidine [Pepcid] 20 mg PO BID 09/03/21 06/09/24 Tamsulosin [Flomax] 0.4 mg PO DAILY 10/26/21 06/09/24 Ipratropium-Albuterol Nebulize 3 ml INHALATION RT-QID PRN 11/13/22 06/09/24 [Duoneb 0.5 mg-3 mg/3 ml Soln] Ibandronate Sodium [Boniva] 150 mg PO Q30D 05/03/23 06/09/24 clonazePAM [KlonoPIN ODT] 0.25 mg PO HS 12/12/23 06/09/24 lamoTRIgine [LaMICtal] 100 mg PO BID 03/18/24 06/09/24 lisinopriL [Prinivil] 20 mg PO DAILY 04/21/24 06/09/24 Metoprolol Tartrate [Lopressor] 25 mg PO BID 05/16/24 06/09/24 Gabapentin 300 mg PO TID 06/01/24 06/09/24 busPIRone HCL [Buspar] 30 mg PO BID 06/09/24 06/09/24 Previous Rx's Medication Instructions Recorded Albuterol Inhaler [Ventolin Hfa 2 puff INHALATION RT-QID PRN #1 11/17/22 Inhaler] each Pyridoxine [Vitamin B-6] 50 mg PO DAILY #30 tab 03/28/24 Divalproex ER [Depakote ER] 250 mg PO BID #60 tab 05/26/24 OLANZapine [ZyPREXA] 5 mg PO HS #30 tab 05/26/24 Sodium Chloride Tab 1 gm PO DAILY #30 tab 05/26/24 Venlafaxine HCl ER [Effexor XR] 75 mg PO DAILY #30 cap 05/26/24 Acetaminophen Tab [Tylenol] 650 mg PO Q6HR PRN tab 06/02/24 HYDROcodone/APAP 5-325MG [[place] 1 tab PO Q6HR PRN 3 Days #12 tab 06/07/24 5-325] Cyclobenzaprine [Flexeril] 10 mg PO TID PRN 15 Days #30 tab 06/11/24 Allergies Allergy/AdvReac Type Severity Reaction Status Date / Time codeine Allergy Unknown Verified 06/09/24 12:55 Childhood Penicillins Allergy Rash/Hives Verified 06/09/24 12:55 Sulfa (Sulfonamide Allergy Rash/Hives Verified 06/09/24 12:55 Antibiotics) Review of Systems ROS Statement: Those systems with pertinent positive or pertinent negative responses have been documented in the HPI. ROS Other: All systems not noted in ROS Statement are negative. 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 History of Any Multi-Drug Resistant Organisms: MRSA Date of last positivie culture/infection: 03/2024 MDRO Source:: Knee Past Surgical History: Bariatric Surgery, Section, Cholecystectomy, Hysterectomy, Tonsillectomy Additional Past Surgical History / Comment(s): EGD, colonoscopies, gastric bypass, surgery for deviated septum, left cataract removal (having laser procedure on that eye 11/24/23) Past Anesthesia/Blood Transfusion Reactions: Previous Problems w/ Anesthesia Additional Past Anesthesia/Blood Transfusion Reaction / Comment(s): itching after hysterectomy, some kind of breathing problem after gastric bypass-not sure what happened Past Psychological History: Anxiety, Bipolar, Depression, Panic Disorder Smoking Status: Current every day smoker Past Alcohol Use History: None Reported Past Drug Use History: None Reported - Past Family History Mother Family Medical History: Congestive Heart Failure (CHF), Hypertension Father History Unknown: Yes Additional Family Medical History / Comment(s): Father at the age of 45 yrs d/t having had rheumatic fever as a child and heart valve disease. General Exam - General Exam Comments Initial Comments: GENERAL: Patient is well-developed and well-nourished. Patient is nontoxic and well- hydrated and is in mild distress. ENT: Neck is soft and supple. No significant lymphadenopathy is noted. Oropharynx is clear. Moist mucous membranes. Neck has full range of motion without eliciting any pain. EYES: The sclera were anicteric and conjunctiva were pink and moist. Extraocular movements were intact and pupils were equal round and reactive to light. Eyelids were unremarkable. PULMONARY: Patient has crackles in the base bilaterally CARDIOVASCULAR: There is a regular rate and rhythm without any murmurs gallops or rubs. ABDOMEN: Soft and nontender with normal bowel sounds. SKIN: Skin is clear with no lesions or rashes and otherwise unremarkable. NEUROLOGIC: Patient is alert and oriented x3. Cranial nerves II through XII are grossly intact. Motor and sensory are also intact. Normal speech, volume and content. Symmetrical smile. MUSCULOSKELETAL: Normal extremities with adequate strength and full range of motion. LYMPHATICS: No significant lymphadenopathy is noted PSYCHIATRIC: Patient is anxious. Limitations: no limitations Course Vital Signs 06/20/24 06/20/24 06/20/24 07:21 07:27 08:27 Temperature 98.5 F Pulse Rate 64 68 65 Respiratory 18 20 16 Rate Blood Pressure 166/81 160/80 165/72 O2 Sat by Pulse 96 95 94 L Oximetry Medical Decision Making - Medical Decision Making EKG is interpreted by myself. EKG shows a sinus rhythm at 62 bpm FL was 164 QRS is 119 QT interval 376 QTc is 381. Patient's EKG shows no ST segment elevation or depression. Was pt. sent in by a medical professional or institution (, [facility], OFFICE NURSE, urgent care, hospital, or skilled nursing...) When possible be specific @ -No Did you speak to anyone other than the patient for history (EMS, parent, family, police, friend...)? What history was obtained from this source @ -No Did you review nursing and triage notes (agree or disagree)? Why? @ -I reviewed and agree with nursing and triage notes Were old charts reviewed (outside hosp., previous admission, EMS record, old EKG, old radiological studies, urgent care reports/EKG's, skilled nursing records)? Report findings @ -I reviewed the patient's prior admission from late May. Patient has low sodium at that time. Differential Diagnosis? @ -Differential Dyspnea: Coronary syndrome, arrhythmia, tamponade, asthma, COPD, pulmonary embolism, pneumonia, pneumothorax, pulmonary effusion, anaphylaxis, diabetic ketoacidosis, flailed chest, pulmonary contusion, diaphragmatic rupture, anemia, neuromuscular, this is not meant to be an all-inclusive list. EKG interpreted by me (3pts min.). @ -As above X-rays interpreted by me (1pt min.). @ -Shows mild pulmonary edema CT interpreted by me (1pt min.). @ -None done U/S interpreted by me (1pt. min.). @ -None done What testing was considered but not performed or refused? (CT, X-rays, U/S, labs)? Why? @ -None What meds were considered but not given or refused? Why? @ -None Did you discuss the management of the patient with other professionals (professionals i.e. [facility] Shepard, OFFICE NURSE, lab, RT, psych nurse, social director, technical administrator, teacher, assault amphibious vehicle officer, foster care case manager)? Give summary @ -I spoke with Dr. Sood he agreed to admit the patient I admitted the patient I wrote admitting orders Was smoking cessation discussed for >3mins.? @ -No Was critical care preformed (if so, how long)? @ -No Were there social determinants of health that impacted care today? How? (Homelessness, low income, unemployed, alcoholism, drug addiction, transportation, low edu. Level, literacy, decrease access to med. care, snf, rehab)? @ -No Was there de-escalation of care discussed even if they declined (Discuss DNR or withdrawal of care, Hospice)? DNR status @ -No What co-morbidities impacted this encounter? (DM, HTN, Smoking, COPD, CAD, Cancer, CVA, ARF, Chemo, Hep., AIDS, mental health diagnosis, sleep apnea, morbid obesity)? @ -None Was patient admitted / discharged? Hospital course, mention meds given and route, prescriptions, significant lab abnormalities, going to OR and other pertinent info. @ -Patient was given Lasix 20 mg IV for the pulmonary edema. Patient sodium is also low at 123 show she will be admitted and put on IV fluids. Cardiology will be consulted Undiagnosed new problem with uncertain prognosis? @ -No Drug Therapy requiring intensive monitoring for toxicity (Heparin, Nitro, Insulin, Cardizem)? @ -No Were any procedures done? @ -No Diagnosis/symptom? @ -Pulmonary edema Acute, or Chronic, or Acute on Chronic? @ -Acute Uncomplicated (without systemic symptoms) or Complicated (systemic symptoms)? @ -Default Side effects of treatment? @ -No Exacerbation, Progression, or Severe Exacerbation? @ -No Poses a threat to life or bodily function? How? (Chest pain, USA, CT, pneumonia, PE, COPD, DKA, ARF, appy, cholecystitis, CVA, Diverticulitis, Homicidal, Suicidal, threat to staff... and all critical care pts) @ -Yes this can lead to hypoxia and endorgan dysfunction Diagnosis/symptom? @ -Hyponatremia Acute, or Chronic, or Acute on Chronic? @ -Acute Uncomplicated (without systemic symptoms) or Complicated (systemic symptoms)? @ -Complicated Side effects of treatment? @ -None Exacerbation, Progression, or Severe Exacerbation] @ -No Poses a threat to life or bodily function? @ -Yes this can lead to seizures and generalized weakness. - Lab Data Result diagrams: 06/20/24 08:24 12 08:24 Lab Results 06/20/24 06/20/24 06/20/24 Range/Units 08:24 08:24 08:24 WBC 7.4 (3.8-10.6) k/uL RBC 4.19 (3.80-5.40) m/uL Hgb 13.2 (11.4-16.0) gm/dL Hct 39.5 (34.0-46.0) % MCV 94.3 (80.0-100.0) fL MCH 31.6 (25.0-35.0) pg MCHC 33.5 (31.0-37.0) g/dL RDW 12.9 (11.5-15.5) % Plt Count 281 (150-450) k/uL MPV 7.0 Neutrophils % 58 % Lymphocytes % 29 % Monocytes % 8 % Eosinophils % 2 % Basophils % 1 % Neutrophils # 4.2 (1.3-7.7) k/uL Lymphocytes # 2.1 (1.0-4.8) k/uL Monocytes # 0.6 (0-1.0) k/uL Eosinophils # 0.2 (0-0.7) k/uL Basophils # 0.1 (0-0.2) k/uL Sodium 123 L (137-145) mmol/L Potassium 4.8 (3.5-5.1) mmol/L Chloride 87 L (98-107) mmol/L Carbon Dioxide 36 H (22-30) mmol/L Anion Gap 0 mmol/L BUN 11 (7-17) mg/dL Creatinine 0.46 L (0.52-1.04) mg/dL Est GFR (CKD-EPI)AfAm >90 (>60 ml/min/1.73 sqM) Est GFR (CKD-EPI)NonAf >90 (>60 ml/min/1.73 sqM) Glucose 88 (74-99) mg/dL Calcium 9.4 (8.4-10.2) mg/dL Magnesium 1.5 L (1.6-2.3) mg/dL Total Bilirubin 0.4 (0.2-1.3) mg/dL AST 41 H (14-36) U/L ALT 33 (4-34) U/L Alkaline Phosphatase 56 (38-126) U/L Creatine Kinase 55 (30-135) U/L NT-Pro-B Natriuret Pep 2290 pg/mL Total Protein 6.1 L (6.3-8.2) g/dL Albumin 3.8 (3.5-5.0) g/dL Urine Color Colorless Urine Appearance Clear (Clear) Urine pH 7.5 (5.0-8.0) Ur Specific [place] 1.007 (1.001-1.035) Urine Protein Negative (Negative) Urine Glucose (UA) Negative (Negative) Urine Ketones Negative (Negative) Urine Blood Negative (Negative) Urine Nitrite Negative (Negative) Urine Bilirubin Negative (Negative) Urine Urobilinogen <2.0 (<2.0) mg/dL Ur Leukocyte Esterase Negative (Negative) Critical Care Time Critical Care Time: Yes Total Critical Care Time: 35 Disposition Clinical Impression: Hyponatremia, Pulmonary edema Disposition: ADMITTED IP TO THIS HOSP Referrals: Andrzej Wheeler MD [Primary Care Provider] - 1-2 days Time of Disposition: 09:22
[2024-06-20] MEDS: KETOROLAC 15 MG/ML 1 ML VIAL IVP STA (08:20)
[2024-06-20 08:31] LABS: Basophils # (A) 0.1 k/uL (0-0.2); Basophils % (A) 1 %; Eosinophils # (A) 0.2 k/uL (0-0.7); Eosinophils % (A) 2 %; HCT 39.5 % (34.0-46.0); HGB 13.2 gm/dL (11.4-16.0); Lymphocytes # (A) 2.1 k/uL (1.0-4.8); Lymphocytes % (A) 29 %; MCH 31.6 pg (25.0-35.0); MCHC 33.5 g/dL (31.0-37.0); MCV 94.3 fL (80.0-100.0); Monocytes # (A) 0.6 k/uL (0-1.0); Monocytes % (A) 8 %; Neutrophils # (A) 4.2 k/uL (1.3-7.7); Neutrophils % (A) 58 %; Platelet Count 281 k/uL (150-450); RBC 4.19 m/uL (3.80-5.40); RDW 12.9 % (11.5-15.5); WBC 7.4 k/uL (3.8-10.6)
[2024-06-20 08:32] LABS: Appearance,Urine Clear (Clear); Bilirubin,Urine Negative (Negative); Blood,Urine Negative (Negative); Color,Urine Colorless; Glucose,Urine (UA) Negative (Negative); Ketones,Urine Negative (Negative); Leukocyte Esterase,Urine Negative (Negative); Nitrite,Urine Negative (Negative); PH, Urine 7.5 (5.0-8.0); Protein,Urine Negative (Negative); Specific Gravity,Urine 1.007 (1.001-1.035); Urobilinogen,Urine <2.0 mg/dL (<2.0)
[2024-06-20 08:41] LABS: ALT 33 U/L (4-34); AST 41 U/L (14-36); African American GFR (CKD) >90 (>60 ml/min/1.73 sqM); Albumin 3.8 g/dL (3.5-5.0); Alkaline Phosphatase 56 U/L (38-126); Anion Gap 0 mmol/L; Blood Urea Nitrogen 11 mg/dL (7-17); Calcium 9.4 mg/dL (8.4-10.2); Carbon Dioxide 36 mmol/L (22-30); Chloride 87 mmol/L (98-107); Creatine Kinase 55 U/L (30-135); Glucose 88 mg/dL (74-99); Magnesium 1.5 mg/dL (1.6-2.3); Non-African American GFR(CKD) >90 (>60 ml/min/1.73 sqM); Potassium 4.8 mmol/L (3.5-5.1); Sodium 123 mmol/L (137-145); Total Bilirubin 0.4 mg/dL (0.2-1.3); Total Protein 6.1 g/dL (6.3-8.2)
--- NOTE | 2024-06-20 08:42 | XR ---
EXAMINATION TYPE: XR chest 2V DATE OF EXAM: 06/20/2024 8:36 AM COMPARISON: Chest radiographs from 06/01/2024 CLINICAL INDICATION: Female, 69 years old with history of Difficulty breathing ; TECHNIQUE: XR chest 2V Frontal and lateral views of the chest. FINDINGS: Lungs/Pleura: No evidence of focal consolidation or pneumothorax. Blunting of the costophrenic angles is present. Pulmonary vascularity: Unremarkable. Heart/mediastinum: Cardiomediastinal silhouette is unremarkable. Musculoskeletal: No acute osseous pathology. IMPRESSION: Rotated exam, bilateral pleural effusions with pulmonary vascular congestion. [facility], , 06/20/2024 8:40 AM
[2024-06-20 08:51] LABS: NT-Pro-B-Type Natriuretic Pept 2290 pg/mL
[2024-06-20] MEDS: FUROSEMIDE 10 MG/ML 2 ML VIAL IV STA (09:21)
[2024-06-20] MEDS: SODIUM CHLORIDE 0.9% 1,000 ML IV SCH (10:23)
[2024-06-20 10:39] VITALS: RESP 18
[2024-06-20] MEDS: LEVOTHYROXINE 75 MCG TAB PO SCH (11:25)
[2024-06-20] MEDS: ALBUTEROL NEBULIZED 2.5 MG/3 ML INHALATION PRN (11:26)
[2024-06-20] MEDS: IPRATROPIUM-ALBUTEROL 3 ML NEB INHALATION PRN (11:28)
[2024-06-20] MEDS: NITROGLYCERIN OINT 1 INCH/GM PACKET TOPICAL SCH (11:28)
[2024-06-20] MEDS: FUROSEMIDE 10 MG/ML 2 ML VIAL IV SCH (11:28)
[2024-06-20] MEDS: GABAPENTIN 300 MG CAP PO SCH (11:28)
[2024-06-20] MEDS: ACETAMINOPHEN TAB 325 MG TAB PO PRN (11:28)
[2024-06-20] MEDS: NICOTINE 14MG/24HR PATCH TRANSDERM SCH (11:28)
--- NOTE | 2024-06-20 12:36 | P.CONS ---
History of Present Illness - Reason for Consult Consult date: 06/20/24 wound care - History of Present Illness This is a 69-year-old patient known to the wound care center with a nonhealing ulceration to the right lateral knee. Patient had a trauma related injury and had been utilizing collagen to the site. At this time the ulceration is epithelialized however the skin is very thin and fragile. We will utilize zinc barrier cream to the site. Patient will return to the wound care center next week at her regular time. Review Of Systems: Constitutional: No fever, no chills, no night sweats. No weight change. No weakness, fatigue or lethargy. No daytime sleepiness. Integumentary:reports wounds, no lesions. No rash or pruritus. No unusual bruising. No change in hair or nails. Physical exam: General Appearance: Alert, cooperative, no distress, appears stated age. Skin: See HPI all other Skin color, texture, tugor normal, no rashes or lesions. Neurologic: Alert oriented x3 Assessment: 1. Nonhealing ulceration limited to skin breakdown Plan: 1. Apply zinc barrier cream to the site daily and as needed. Patient return to the wound care center next Wednesday. Thank you for the consultation any questions please contact the wound care center DNP note has been reviewed and discussed with Dr. Méndez and the impression and plan of care has been directed as dictated. 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 History of Any Multi-Drug Resistant Organisms: MRSA Year Discovered:: 03/2024 MDRO Source:: Knee Past Surgical History: Bariatric Surgery, Section, Cholecystectomy, Hysterectomy, Tonsillectomy Additional Past Surgical History / Comment(s): EGD, colonoscopies, gastric bypass, surgery for deviated septum, left cataract removal (having laser procedure on that eye 11/24/23) Past Anesthesia/Blood Transfusion Reactions: Previous Problems w/ Anesthesia Additional Past Anesthesia/Blood Transfusion Reaction / Comm: itching after hysterectomy, some kind of breathing problem after gastric bypass-not sure what happened Past Psychological History: Anxiety, Bipolar, Depression, Panic Disorder Smoking Status: Current every day smoker Past Alcohol Use History: None Reported Past Drug Use History: None Reported - Past Family History Mother Family Medical History: Congestive Heart Failure (CHF), Hypertension Father History Unknown: Yes Additional Family Medical History / Comment(s): Father at the age of 45 yrs d/t having had rheumatic fever as a child and heart valve disease. Medications and Allergies Home Medications Medication Instructions Recorded Confirmed Type Montelukast [Singulair] 10 mg PO HS 12/17/13 06/20/24 History Levothyroxine Sodium [Synthroid] 150 mcg PO DAILY 03/29/20 06/20/24 History Budesonide/Formoterol Fumarate 2 puff INHALATION RT-BID 06/12/21 06/20/24 History [Symbicort 160-4.5 Mcg Inhaler] Famotidine [Pepcid] 20 mg PO BID 09/03/21 06/20/24 History Tamsulosin [Flomax] 0.4 mg PO DAILY 10/26/21 06/20/24 History Ipratropium-Albuterol Nebulize 3 ml INHALATION RT-QID PRN 11/13/22 06/20/24 History [Duoneb 0.5 mg-3 mg/3 ml Soln] Albuterol Inhaler [Ventolin Hfa 2 puff INHALATION RT-QID PRN #1 11/17/22 06/20/24 Rx Inhaler] each Ibandronate Sodium [Boniva] 150 mg PO Q30D 05/03/23 06/20/24 History clonazePAM [KlonoPIN ODT] 0.25 mg PO HS 12/12/23 06/20/24 History lamoTRIgine [LaMICtal] 100 mg PO BID 03/18/24 06/20/24 History Pyridoxine [Vitamin B-6] 50 mg PO DAILY #30 tab 03/28/24 06/20/24 Rx lisinopriL [Prinivil] 20 mg PO DAILY 04/21/24 06/20/24 History Metoprolol Tartrate [Lopressor] 25 mg PO BID 05/16/24 06/20/24 History Divalproex ER [Depakote ER] 250 mg PO BID #60 tab 05/26/24 06/20/24 Rx OLANZapine [ZyPREXA] 5 mg PO HS #30 tab 05/26/24 06/20/24 Rx Sodium Chloride Tab 1 gm PO DAILY #30 tab 05/26/24 06/20/24 Rx Venlafaxine HCl ER [Effexor XR] 75 mg PO DAILY #30 cap 05/26/24 06/20/24 Rx Gabapentin 300 mg PO TID 06/01/24 06/20/24 History Acetaminophen Tab [Tylenol] 650 mg PO Q6HR PRN tab 06/02/24 06/20/24 Rx busPIRone HCL [Buspar] 30 mg PO BID 06/09/24 06/20/24 History Cyclobenzaprine [Flexeril] 10 mg PO TID PRN 15 Days #30 tab 06/11/24 06/20/24 Rx Allergies Allergy/AdvReac Type Severity Reaction Status Date / Time codeine Allergy Unknown Verified 06/20/24 09:40 Childhood Penicillins Allergy Rash/Hives Verified 06/20/24 09:40 Sulfa (Sulfonamide Allergy Rash/Hives Verified 06/20/24 09:40 Antibiotics) Physical Exam Vitals: Vital Signs Temp Pulse Pulse Resp BP BP Pulse Ox 06/20/24 11:40 80 06/20/24 11:34 62 18 186/88 99 06/20/24 11:29 78 97 06/20/24 10:35 97.9 F 65 18 188/82 94 L 06/20/24 09:46 85 22 160/70 94 L 06/20/24 08:27 65 16 165/72 94 L 06/20/24 07:27 68 20 160/80 95 06/20/24 07:21 98.5 F 64 18 166/81 96 Intake and Output 06/19/24 06/20/24 06/20/24 22:59 06:59 14:59 Output Total 800 Balance -800 Output: Urine 800 Other: # Bowel Movements 0 Weight 72.575 kg Results CBC & Chem 7: 06/20/24 08:24 06/20/24 08:24 Labs: Abnormal Lab Results - Last 24 Hours (Table) 06/20/24 Range/Units 08:24 Sodium 123 L (137-145) mmol/L Chloride 87 L (98-107) mmol/L Carbon Dioxide 36 H (22-30) mmol/L Creatinine 0.46 L (0.52-1.04) mg/dL Magnesium 1.5 L (1.6-2.3) mg/dL AST 41 H (14-36) U/L Total Protein 6.1 L (6.3-8.2) g/dL Assessment and Plan (1) Non-pressure ulcer of right lower extremity, limited to breakdown of skin Current Visit: Yes Status: Acute Code(s): L97.911 - NON-PRS CHR ULC UNSP PRT OF R LOW LEG LIMITED TO BRKDWN SKIN SNOMED Code(s): 46493899
[2024-06-20] MEDS ORDERED: Magnesium Replacement Protocol 1 EACH MISC MISCELLANE PRN (15:35)
[2024-06-20] MEDS: MAGNESIUM SULFATE-D5W PMX 1 GM in DEXTROSE/WATER 1 100ML.BAG IVPB SCH ×2 (15:59→22:49)
[2024-06-20] MEDS: ZINC OXIDE PASTE (Z-GUARD) 1 APPLIC TOPICAL SCH (17:09)
[2024-06-20] MEDS: LOSARTAN 50 MG TAB PO SCH (17:10)
[2024-06-20] MEDS: FAMOTIDINE 20 MG TAB PO SCH (20:29)
[2024-06-20] MEDS: lamoTRIgine 100 MG TAB PO SCH (20:29)
[2024-06-20] MEDS: DIVALPROEX ER 250 MG TAB.ER.24H PO SCH (20:29)
[2024-06-20] MEDS: METOPROLOL TARTRATE 25 MG TAB PO SCH (20:29)
[2024-06-20] MEDS: MONTELUKAST 10 MG TAB PO SCH (20:29)
--- NOTE | 2024-06-20 20:41 | P.HPIM ---
History of Present Illness H&P Date: 06/20/24 Chief Complaint: Muscle spasms Patient is a 69-year-old female with a past medical history of hypertension, fibromyalgia, COPD on home oxygen 3 L via nasal cannula, GERD, history of PE, hypothyroidism, spinal stenosis, cervical disc disease/stenosis, scoliosis, anxiety/depression/bipolar/panic disorder and currently everyday smoker and occasional marijuana use. Patient presents to ER with complaints of muscle spasms all over her body. Patient also complaining of lower back pain which is also getting worse. Denied any complaints of numbness or tingling sensation in the legs. Patient does have right lower extremity nonhealing wound/ulcer. Patient was previously admitted multiple times with similar complaints. She was also complaining of difficulty breathing. Denied any worsening leg swelling. She was admitted to hospital due to hyponatremia recently. Patient states that he has been taking Gatorade and pop and has not been eating well due to unable to eat well due to her dentures. Otherwise denied any fever or chills. No cough or sputum production. Patient is also for nauseated. No episodes of vomiting. No diarrhea. Denied any abdominal pain. Patient is extremely anxious and requesting IV pain medications. 2D echocardiogram on 04/10/2024 showed left ventricular ejection fraction at 55 to 60%. Severely increased left ventricular diastolic volume. Mildly increased left ventricular systolic volume. No obvious regional wall motion abnormalit ies. Chest x-ray showed rotated exam, bilateral pleural effusions with pulmonary vascular congestion. No evidence of focal consolidation or pneumothorax. EKG showed sinus rhythm with heart rate 62 Laboratory data showed WBC 7.4 hemoglobin 13.2 and platelets 281, sodium 123 potassium 4.8 chloride 87 bicarb is 36 BUN 11 and creatinine 0.46 and blood sugar 88 magnesium 1.5, NT proBNP 2219 Urinalysis is negative for infection. Patient was given a dose of 20 mg IV Lasix, Toradol 50 mg IV push and Valium. Review of Systems Constitutional: Patient denies any fever or chills . No generalized weakness or weight loss. Generalized muscle cramps. Abdomen: Patient denied nausea vomiting and diarrhea and abdominal pain. Cardiovascular: Patient denies any chest pain. Positive for short of breath no palpitations. No leg swelling Respiratory: patient denied any cough or sputum production. Mild shortness of breath Neurologic: Patient denied any numbness or tingling. Mild headache. Musculoskeletal: Patient denies any complaints of joint swelling or deformity. Skin: Negative Psychiatric: Negative Endocrine: No heat or cold intolerance. No recent weight gain. Genitourinary: No dysuria or hematuria. All other 14 point ROS negative except the above Past Medical History Past Medical History: Asthma, Heart Failure, COPD, Fibromyalgia, GERD/Reflux, Hypertension, Osteoarthritis (OA), Pneumonia, Pulmonary Embolus (PE), Skin D isorder, Thyroid Disorder Additional Past Medical History / Comment(s): Spinal Stenosis, Cervical disc disease/stenosis, scoliosis, numbness/tingling L side of face/neck, hx of L hemidiaphragmatic elevation-possibly genetic, recently bronchitis and past bronchitis, electrolyte problem/kidney function being affected, hx of pulmonary emboli, past bilateral lower extremity cellulitis, edema lower extremities, IBS, hemorrhoids, benign colon polyps, sinus problems, UTIs, bacteremia/sepsis, cardiac murmur, past L ankle and L wrist fractures. History of Any Multi-Drug Resistant Organisms: MRSA Date of last positivie culture/infection: 03/2024 MDRO Source:: Knee Past Surgical History: Bariatric Surgery, Section, Cholecystectomy, Hysterectomy, Tonsillectomy Additional Past Surgical History / Comment(s): EGD, colonoscopies, gastric bypass, surgery for deviated septum, left cataract removal (having laser procedure on that eye 11/24/23) Past Anesthesia/Blood Transfusion Reactions: Previous Problems w/ Anesthesia Additional Past Anesthesia/Blood Transfusion Reaction / Comment(s): itching af ter hysterectomy, some kind of breathing problem after gastric bypass-not sure what happened Past Psychological History: Anxiety, Bipolar, Depression, Panic Disorder Smoking Status: Current every day smoker Past Alcohol Use History: None Reported Past Drug Use History: None Reported - Past Family History Mother Family Medical History: Congestive Heart Failure (CHF), Hypertension Father History Unknown: Yes Additional Family Medical History / Comment(s): Father at the age of 45 yrs d/t having had rheumatic fever as a child and heart valve disease. Medications and Allergies Home Medications Medication Instructions Recorded Confirmed Type Montelukast [Singulair] 10 mg PO HS 12/17/13 06/20/24 History Levothyroxine Sodium [Synthroid] 150 mcg PO DAILY 03/29/20 06/20/24 History Budesonide/Formoterol Fumarate 2 puff INHALATION RT-BID 06/12/21 06/20/24 History [Symbicort 160-4.5 Mcg Inhaler] Famotidine [Pepcid] 20 mg PO BID 09/03/21 06/20/24 History Tamsulosin [Flomax] 0.4 mg PO DAILY 10/26/21 06/20/24 History Ipratropium-Albuterol Nebulize 3 ml INHALATION RT-QID PRN 11/13/22 06/20/24 History [Duoneb 0.5 mg-3 mg/3 ml Soln] Albuterol Inhaler [Ventolin Hfa 2 puff INHALATION RT-QID PRN #1 11/17/2206/20 Rx Inhaler] each Ibandronate Sodium [Boniva] 150 mg PO Q30D 05/03/23 06/20/24 History clonazePAM [KlonoPIN ODT] 0.25 mg PO HS 12/12/23 06/20/24 History lamoTRIgine [LaMICtal] 100 mg PO BID 03/18/24 06/20/24 History Pyridoxine [Vitamin B-6] 50 mg PO DAILY #30 tab 03/28/24 06/20/24 Rx lisinopriL [Prinivil] 20 mg PO DAILY 04/21/24 06/20/24 History Metoprolol Tartrate [Lopressor] 25 mg PO BID 05/16/24 06/20/24 History Divalproex ER [Depakote ER] 250 mg PO BID #60 tab 05/26/24 06/20/24 Rx OLANZapine [ZyPREXA] 5 mg PO HS #30 tab 05/26/24 06/20/24 Rx Sodium Chloride Tab 1 gm PO DAILY #30 tab 05/26/24 06/20/24 Rx Venlafaxine HCl ER [Effexor XR] 75 mg PO DAILY #30 cap 05/26/24 06/20/24 Rx Gabapentin 300 mg PO TID 06/01/24 06/20/24 History Acetaminophen Tab [Tylenol] 650 mg PO Q6HR PRN tab 06/02/24 06/20/24 Rx busPIRone HCL [Buspar] 30 mg PO BID 06/09/24 06/20/24 History Cyclobenzaprine [Flexeril] 10 mg PO TID PRN 15 Days #30 tab 06/11/24 06/20/24 Rx Allergies Allergy/AdvReac Type Severity Reaction Status Date / Time codeine Allergy Unknown Verified 06/20/24 09:40 Childhood Penicillins Allergy Rash/Hives Verified 06/20/24 09:40 Sulfa (Sulfonamide Allergy Rash/Hives Verified 06/20/24 09:40 Antibiotics) Physical Exam Vitals: Vital Signs Temp Pulse Resp BP Pulse Ox 06/20/24 09:46 85 22 160/70 94 L 06/20/24 08:27 65 16 165/72 94 L 06/20/24 07:27 68 20 160/80 95 06/20/24 07:21 98.5 F 64 18 166/81 96 Intake and Output 06/19/24 06/20/24 06/20/24 22:59 06:59 14:59 Other: Weight 72.575 kg PHYSICAL EXAMINATION: Patient is lying in the bed, anxious, no acute distress, awake alert and oriented.. HEENT: Normocephalic. Neck is supple. Pupils reactive. Nostrils clear. Oral c avity is moist. Neck reveals no JVD, carotid bruits, or thyromegaly. CHEST EXAMINATION: Trachea is central. Symmetrical expansion. No wheezing. Lung flores clear to auscultation and percussion. CARDIAC: Normal S1, S2 with no gallops. No murmurs ABDOMEN: Soft. Bowel sounds normal. No organomegaly. No abdominal bruits. Extremities: reveal no edema. No clubbing or cyanosis Neurologically awake, alert, oriented x3 with well-coordinated movements. No gross focal deficits noted Skin: No rash or skin lesions. Psychiatric: Coperative. Nonsuicidal, Musculoskeletal: No joint swelling or deformity. Normal range of motion. Results CBC & Chem 7: 06/20/24 08:24 06/20/24 08:24 Labs: Abnormal Lab Results - Last 24 Hours (Table) 06/20/24 Range/Units 08:24 Sodium 123 L (137-145) mmol/L Chloride 87 L (98-107) mmol/L Carbon Dioxide 36 H (22-30) mmol/L Creatinine 0.46 L (0.52-1.04) mg/dL Magnesium 1.5 L (1.6-2.3) mg/dL AST 41 H (14-36) U/L Total Protein 6.1 L (6.3-8.2) g/dL Thrombosis Risk Factor Assmnt - DVT/VTE Prophylaxis DVT/VTE Prophylaxis: Pharmacologic Prophylaxis ordered Assessment and Plan Assessment: Acute on chronic CHF with preserved EF. Chest x-ray showed bilateral pleural effusion pulmonary vascular congestion. Hyponatremia. Likely hypovolemic hypoosmolar hyponatremia due to decreased solute intake. And also possible SIADH due to medications. Sodium level 124 on admission. Patient was previously admitted to Cramping pain across the upper chest and shoulders and bilateral upper extremities. Hypomagnesemia Chronic hypoxic respiratory failure secondary COPD and recent COVID-19 infection. On 3 L oxygen via nasal cannula Hypertension Anxiety/depression/bipolar disorder and panic disorder Currently everyday smoker Fibromyalgia Osteoarthritis History of PE Hypothyroidism Spinal stenosis and cervical degenerative disc disease History of bariatric surgery/gastric bypass Currently everyday smoker and Marijuana use disorder History of nonsustained V. tach. GI and DVT prophylaxis with heparin subcu and Plan: Patient will be continued on telemonitoring. Was given a dose of IV Lasix 20 mg in the ER. Gentle IV hydration with normal saline. Follow-up repeat sodium level in the afternoon. Follow-up serum and urine osmolality, random urine sodium. Plain water restriction to 1.5 L. Cardiology was consulted for evaluation. Previous echocardiogram done on 04/10/2024 report as above Continue with DuoNebs and oxygen supplementation. Smoking cessation and marijuana abstinence has been counseled extensively. Continue with Tylenol and gabapentin for pain management. Follow-up closely. Prognosis is guarded. Time with Patient: Greater than 30
[2024-06-20] MEDS: SYMBICORT 160-4.5 MCG INHALER INHALATION SCH (21:07)
[2024-06-20 21:56] LABS: ALT 26 U/L (4-34); AST 28 U/L (14-36); African American GFR (CKD) >90 (>60 ml/min/1.73 sqM); Alkaline Phosphatase 55 U/L (38-126); Anion Gap -1 mmol/L; Blood Urea Nitrogen 20 mg/dL (7-17); Calcium 8.7 mg/dL (8.4-10.2); Carbon Dioxide 36 mmol/L (22-30); Chloride 90 mmol/L (98-107); Glucose 97 mg/dL (74-99); Non-African American GFR(CKD) >90 (>60 ml/min/1.73 sqM); Potassium 4.2 mmol/L (3.5-5.1); Sodium 125 mmol/L (137-145); Total Bilirubin 0.3 mg/dL (0.2-1.3)
[2024-06-20] MEDS: HEPARIN SODIUM,PORCINE 5,000 UNIT/ML 1 ML VIAL SQ SCH (23:01)
[2024-06-21 07:34] LABS: Basophils # (A) 0.1 k/uL (0-0.2); Basophils % (A) 1 %; Eosinophils # (A) 0.1 k/uL (0-0.7); Eosinophils % (A) 2 %; HCT 40.7 % (34.0-46.0); HGB 13.1 gm/dL (11.4-16.0); Lymphocytes # (A) 1.9 k/uL (1.0-4.8); Lymphocytes % (A) 27 %; MCH 31.1 pg (25.0-35.0); MCHC 32.3 g/dL (31.0-37.0); MCV 96.2 fL (80.0-100.0); Mean Platelet Volume 7.8; Monocytes # (A) 0.7 k/uL (0-1.0); Monocytes % (A) 10 %; Neutrophils % (A) 59 %; Platelet Count 297 k/uL (150-450); RBC 4.23 m/uL (3.80-5.40); WBC 6.8 k/uL (3.8-10.6)
[2024-06-21 07:54] LABS: African American GFR (CKD) >90 (>60 ml/min/1.73 sqM); Blood Urea Nitrogen 15 mg/dL (7-17); Calcium 9.2 mg/dL (8.4-10.2); Chloride 89 mmol/L (98-107); Glucose 78 mg/dL (74-99); Magnesium 2.3 mg/dL (1.6-2.3); Non-African American GFR(CKD) >90 (>60 ml/min/1.73 sqM); Potassium 4.6 mmol/L (3.5-5.1); Sodium 129 mmol/L (137-145)
[2024-06-21 08:00] LABS: Anion Gap 5 mmol/L
[2024-06-21 08:12] LABS: Carbon Dioxide 35 mmol/L (22-30)
[2024-06-21] MEDS ORDERED: DOBUTamine DRIP for NUC MED 500 MG in DEXTROSE/WATER 1 250ML.BAG IV PRN (08:44)
[2024-06-21] MEDS: lisinopriL 20 MG TAB PO SCH (09:01)
[2024-06-21] MEDS: TAMSULOSIN 0.4 MG CAP.ER.24H PO SCH (09:01)
[2024-06-21] MEDS: FUROSEMIDE 10 MG/ML 2 ML VIAL IV SCH (09:01)
[2024-06-21] MEDS: SODIUM CHLORIDE TAB 1 GM TAB PO SCH (09:02)
[2024-06-21] MEDS: PYRIDOXINE 50 MG TAB PO SCH (09:02)
--- NOTE | 2024-06-21 09:52 | P.CRDCN ---
History of Present Illness Consult date: 06/21/24 Reason for Consult (text): Pulmonary edema History of present illness: This is a 69-year-old female patient of Dr. Last with a past medical history significant for hypertension, hypothyroidism, anxiety, bipolar disorder, depression, nicotine dependence, marijuana use, fibromyalgia, chronic right knee wound and GERD. Patient has had multiple admissions to the hospital over the past year including for heart failure with preserved EF, nonsustained ventricular tachycardia, bradycardia and beta-nahum was discontinued. We have been asked to evaluate the patient for pulmonary edema. When patient is asked why she came into the hospital she starts crying and states that everything hurts everything in her body hurts. She states she needs something for pain more than Tylenol. She is complaints of head and neck pain. She also has chest pain but states it starts from her arms bilaterally with numbness and tingling and then into her chest. Chest pain is in the middle of her chest. She also complains of congestion in her chest and cough. She also states that she had some lower extremity edema which has resolved. Patient was started on IV Lasix 20 mg currently at daily and states she has urinated a lot, "too much and I do n ot want to take it anymore." Patient is an active smoker of a half a pack per day and is on home O2 at 3 L nasal cannula. Patient states her shortness of breath has improved since arrival. -EKG reveals sinus mechanism with no signs of acute ischemia, IVCD -Chest xray bilateral pleural effusions with pulmonary vascular congestion -Laboratory data: Hemoglobin 13.1. Sodium initially 123 now 129, creatinine 0.57, potassium 4.6, magnesium 2.3. proBNP 2290. -Current home cardiac medications: Lisinopril 20 mg daily, Lopressor 25 mg twice daily. -Most recent echocardiogram 04/11/2024: Limited study with normal biventricular systolic function. -Lexiscan Cardiolite stress test performed in the office on 01/27/2023 revealed fixed inferior perfusion defect consistent with diaphragmatic attenuation artifact. No other myocardial perfusion defects to suggest ischemia. Normal left ventricular EF 60%. REVIEW OF SYSTEMS: At the time of my exam: CONSTITUTIONAL: Denies fever or chills. Reports generalized pain, bilateral arm pain and numbness HEENT: Denies blurred vision, vision changes, or eye pain. Denies hemoptysis Reports neck pain CARDIOVASCULAR: Reports chest pain. Denies orthopnea. Denies PND. Denies palpitations RESPIRATORY: Reports shortness of breath. GASTROINTESTINAL: Reports abdominal pain. Denies nausea or vomiting. HEMATOLOGIC: Denies bleeding disorders. GENITOURINARY: Denies any blood in urine. SKIN: Denies pruitis. Denies rash. PHYSICAL EXAM: VITAL SIGNS: Reviewed. GENERAL: Well-developed in no acute distress. HEENT: Head is normocephalic. Pupils are equal, round. Sclerae anicteric. Mucous membranes of the mouth are moist. Neck supple. No JVD or thyromegaly LUNGS: Respirations even and unlabored. Lungs essentially clear to auscultation bilaterally. HEART: Regular rate and rhythm. S1 and S2 heard. Systolic murmur ABDOMEN: Soft. Nondistended. Nontender. EXTREMITIES: Dressing to right knee noted. No clubbing or cyanosis. Peripheral pulses intact. No lower extremity edema NEUROLOGIC: Awake and alert. Oriented x 3. ASSESSMENT: Acute on chronic heart failure with preserved EF Chest pain History of nonsustained ventricular tachycardia History of sinus bradycardia Chronic hypoxic respiratory failure on home oxygen on 3 L nasal cannula Fibromyalgia Hypertension Hypothyroidism Anxiety Bipolar disorder Depression Nicotine dependence with active tobacco use of half a pack per day Marijuana use PLAN: Continue current cardiac medications Continue patient on Lasix 20 mg daily for another day Schedule patient for dobutamine stress echocardiogram tomorrow n Monitor TESSY, daily weights, electrolytes and renal function Further recommendations pending patient course Nurse practitioner note has been reviewed by physician. Signing provider agrees with the documented findings, assessment, and plan of care documented by [employer] MAINTE[employer] TECHNICIAN as a scribe. 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 History of Any Multi-Drug Resistant Organisms: MRSA Date of last positivie culture/infection: 03/2024 MDRO Source:: Knee Past Surgical History: Bariatric Surgery, Section, Cholecystectomy, Hysterectomy, Tonsillectomy Additional Past Surgical History / Comment(s): EGD, colonoscopies, gastric bypass, surgery for deviated septum, left cataract removal (having laser procedure on that eye 11/24/23) Past Anesthesia/Blood Transfusion Reactions: Previous Problems w/ Anesthesia Additional Past Anesthesia/Blood Transfusion Reaction / Comment(s): itching after hysterectomy, some kind of breathing problem after gastric bypass-not sure what happened Past Psychological History: Anxiety, Bipolar, Depression, Panic Disorder Smoking Status: Current every day smoker Past Alcohol Use History: None Reported Past Drug Use History: None Reported - Past Family History Mother Family Medical History: Congestive Heart Failure (CHF), Hypertension Father History Unknown: Yes Additional Family Medical History / Comment(s): Father at the age of 45 yrs d/t having had rheumatic fever as a child and heart valve disease. Medications and Allergies Home Medications Medication Instructions Recorded Confirmed Type Montelukast [Singulair] 10 mg PO HS 12/17/13 06/20/24 History Levothyroxine Sodium [Synthroid] 150 mcg PO DAILY 03/29/20 06/20/24 History Budesonide/Formoterol Fumarate 2 puff INHALATION RT-BID 06/12/21 06/20/24 History [Symbicort 160-4.5 Mcg Inhaler] Famotidine [Pepcid] 20 mg PO BID 09/03/21 06/20/24 History Tamsulosin [Flomax] 0.4 mg PO DAILY 10/26/21 06/20/24 History Ipratropium-Albuterol Nebulize 3 ml INHALATION RT-QID PRN 11/13/22 06/20/24 History [Duoneb 0.5 mg-3 mg/3 ml Soln] Albuterol Inhaler [Ventolin Hfa 2 puff INHALATION RT-QID PRN #1 11/17/2210/09 Rx Inhaler] each Ibandronate Sodium [Boniva] 150 mg PO Q30D 05/03/23 06/20/24 History clonazePAM [KlonoPIN ODT] 0.25 mg PO HS 12/12/23 06/20/24 History lamoTRIgine [LaMICtal] 100 mg PO BID 03/18/24 06/20/24 History Pyridoxine [Vitamin B-6] 50 mg PO DAILY #30 tab 03/28/24 06/20/24 Rx lisinopriL [Prinivil] 20 mg PO DAILY 04/21/24 06/20/24 History Metoprolol Tartrate [Lopressor] 25 mg PO BID 05/16/24 06/20/24 History Divalproex ER [Depakote ER] 250 mg PO BID #60 tab 05/26/24 06/20/24 Rx OLANZapine [ZyPREXA] 5 mg PO HS #30 tab 05/26/24 06/20/24 Rx Sodium Chloride Tab 1 gm PO DAILY #30 tab 05/26/24 06/20/24 Rx Venlafaxine HCl ER [Effexor XR] 75 mg PO DAILY #30 cap 05/26/24 06/20/24 Rx Gabapentin 300 mg PO TID 06/01/24 06/20/24 History Acetaminophen Tab [Tylenol] 650 mg PO Q6HR PRN tab 06/02/24 06/20/24 Rx busPIRone HCL [Buspar] 30 mg PO BID 06/09/24 06/20/24 History Cyclobenzaprine [Flexeril] 10 mg PO TID PRN 15 Days #30 tab 06/11/24 06/20/24 Rx Allergies Allergy/AdvReac Type Severity Reaction Status Date / Time codeine Allergy Unknown Verified 06/20/24 09:40 Childhood Penicillins Allergy Rash/Hives Verified 06/20/24 09:40 Sulfa (Sulfonamide Allergy Rash/Hives Verified 06/20/24 09:40 Antibiotics) Physical Exam Vitals: Vital Signs Temp Pulse Pulse Resp BP BP Pulse Ox 06/21/24 04:00 97.6 F 65 18 130/69 98 06/21/24 01:22 66 18 06/20/24 23:50 97.5 F L 66 18 121/67 98 06/20/24 20:00 98.1 F 83 18 116/61 97 06/20/24 16:06 68 06/20/24 15:54 66 06/20/24 15:32 96.4 F L 71 18 194/87 94 L 06/20/24 14:00 62 18 06/20/24 11:40 80 12/03/24 11:34 62 18 186/88 99 06/20/24 11:29 78 97 06/20/24 10:35 97.9 F 65 18 188/82 94 L 06/20/24 09:46 85 22 160/70 94 L 06/20/24 08:27 65 16 165/72 94 L Intake and Output 06/20/24 06/21/24 06/21/24 22:59 06:59 14:59 Intake Total 120 Output Total 1300 350 900 Balance -1180 -350 -900 Intake: Oral 120 Output: Urine 1300 350 900 Other: Voiding Method Bedside Commode Bedside Commode Weight 69.4 kg Results 06/21/24 05:31 06/21/24 05:31 Cardiac Enzymes 06/20/24 06/20/24 Range/Units 08:24 21:22 AST 41 H 28 (14-36) U/L CBC 06/20/24 06/21/24 Range/Units 08:24 05:31 WBC 7.4 6.8 (3.8-10.6) k/uL RBC 4.19 4.23 (3.80-5.40) m/uL Hgb 13.2 13.1 (11.4-16.0) gm/dL Hct 39.5 40.7 (34.0-46.0) % Plt Count 281 297 (150-450) k/uL Comprehensive Metabolic Panel 06/20/24 06/20/24 Range/Units 08:24 21:22 Sodium 123 L 125 L (137-145) mmol/L Potassium 4.8 4.2 (3.5-5.1) mmol/L Chloride 87 L 90 L (98-107) mmol/L Carbon Dioxide 36 H 36 H (22-30) mmol/L BUN 11 20 H (7-17) mg/dL Creatinine 0.46 L 0.63 (0.52-1.04) mg/dL Glucose 88 97 (74-99) mg/dL Calcium 9.4 8.7 (8.4-10.2) mg/dL AST 41 H 28 (14-36) U/L ALT 33 26 (4-34) U/L Alkaline Phosphatase 56 55 (38-126) U/L Total Protein 6.1 L 5.0 L (6.3-8.2) g/dL Albumin 3.8 3.0 L (3.5-5.0) g/dL Current Medications Generic Name Dose Route Start Last Admin Trade Name Freq PRN Reason Stop Dose Admin Acetaminophen 650 mg 06/20/24 10:33 06/21/24 05:42 Acetaminophen Tab 325 Mg Tab PO 650 mg Q6HR PRN Administration Mild Pain or Fever > 100.5 Albuterol Sulfate 2.5 mg 06/20/24 10:33 Albuterol Nebulized 2.5 Mg/3 Ml INHALATION RT-QID PRN Shortness Of Breath Albuterol/Ipratropium 3 ml 06/20/24 10:33 06/20/24 15:54 Ipratropium-Albuterol 3 Ml Neb INHALATION 3 ml RT-QID PRN Administration Shortness Of Breath Budesonide/Formoterol Fumarate 2 puff 06/20/24 20:00 06/20/24 21:07 Symbicort 160-4.5 Mcg Inhaler INHALATION 2 puff RT-BID JEIMY Administration Divalproex Sodium 250 mg 06/20/24 21:00 06/20/24 20:29 Divalproex Er 250 Mg Tab.Er.24h PO 250 mg BID JEIMY Administration Famotidine 20 mg 06/20/24 21:00 06/20/24 20:29 Famotidine 20 Mg Tab PO 20 mg BID JEIMY Administration Furosemide 20 mg 06/21/24 09:00 Furosemide 10 Mg/Ml 2 Ml Vial IV DAILY JEIMY Gabapentin 300 mg 06/20/24 11:00 06/20/24 22:58 Gabapentin 300 Mg Cap PO 300 mg TID JEIMY Administration Heparin Sodium (Porcine) 5,000 unit 06/21/24 00:00 06/20/24 23:01 Heparin Sodium,Porcine 5,000 Unit/Ml 1 Ml Vial SQ 5,000 unit Q8HR JEIMY Administration Lamotrigine 100 mg 06/20/24 21:00 06/20/24 20:29 Lamotrigine 100 Mg Tab PO 100 mg BID JEIMY Administration Levothyroxine Sodium 150 mcg 06/20/24 10:45 06/21/24 05:42 Levothyroxine 75 Mcg Tab PO 150 mcg DAILY@0630 JEIMY Administration Lisinopril 20 mg 06/21/24 09:00 Lisinopril 20 Mg Tab PO DAILY JEIMY Metoprolol Tartrate 25 mg 06/20/24 21:00 06/20/24 20:29 Metoprolol Tartrate 25 Mg Tab PO 25 mg BID JEIMY Administration Miscellaneous Information 1 each 06/20/24 15:35 Magnesium Replacement Protocol 1 Each Misc MISCELLANE DAILY PRN Per Protocol Protocol Montelukast Sodium 10 mg 06/20/24 21:00 06/20/24 20:29 Montelukast 10 Mg Tab PO 10 mg HS JEIMY Administration Nicotine 1 patch 06/20/24 11:00 06/20/24 11:28 Nicotine 14mg/24hr Patch TRANSDERM 1 patch DAILY JEIMY Administration Nitroglycerin 1 inch 06/20/24 12:00 06/21/24 05:42 Nitroglycerin Oint 1 Inch/Gm Packet TOPICAL 06/21/24 11:59 1 inch Q6HR JEIMY Administration Petrolatum 1 applic 06/20/24 12:45 06/20/24 17:09 Zinc Oxide Paste (Z-Guard) 1 Applic TOPICAL 1 applic DAILY JEIMY Administration Protocol Pyridoxine HCl 50 mg 06/21/24 09:00 Pyridoxine 50 Mg Tab PO DAILY JEIMY Sodium Chloride 1 gm 06/21/24 09:00 Sodium Chloride Tab 1 Gm Tab PO DAILY JEIMY Tamsulosin HCl 0.4 mg 06/21/24 09:00 Tamsulosin 0.4 Mg Cap.Er.24h PO DAILY JEIMY Intake and Output 06/20/24 06/21/24 06/21/24 22:59 06:59 14:59 Intake Total 120 Output Total 1300 350 900 Balance -1180 -350 -900 Intake: Oral 120 Output: Urine 1300 350 900 Other: Voiding Method Bedside Commode Bedside Commode Weight 69.4 kg 06/21/24 05:31 06/20/24 21:22
[2024-06-21] MEDS: CYCLOBENZAPRINE 10 MG TAB PO PRN (11:13)
[2024-06-21] MEDS: busPIRone HCl 10 MG TAB PO SCH (11:13)
[2024-06-21 11:45] VITALS: BMI 29.9
[2024-06-21] MEDS: VENLAFAXINE HCL ER 75 MG CAP PO SCH (12:06)
[2024-06-21] MEDS: clonazePAM 0.5 MG TAB PO SCH (21:03)
[2024-06-21] MEDS: OLANZapine 5 MG TAB PO SCH (22:56)
[2024-06-22 07:36] LABS: African American GFR (CKD) >90 (>60 ml/min/1.73 sqM); Anion Gap -3 mmol/L; Blood Urea Nitrogen 12 mg/dL (7-17); Carbon Dioxide 39 mmol/L (22-30); Chloride 93 mmol/L (98-107); Glucose 85 mg/dL (74-99); Non-African American GFR(CKD) >90 (>60 ml/min/1.73 sqM); Potassium 4.6 mmol/L (3.5-5.1); Sodium 129 mmol/L (137-145)
[2024-06-22] MEDS: amLODIPine 10 MG TAB PO SCH (09:08)
[2024-06-22] MEDS ORDERED: DOBUTamine DRIP for NUC MED 500 MG in DEXTROSE/WATER 1 250ML.BAG IV PRN (09:30)
[2024-06-22] MEDS: hydrALAZINE HCL 20 MG/ML 1 ML VIAL IVP STA (10:30)
[2024-06-22] MEDS: ALPRAZolam 0.5 MG TAB PO STA (10:40)
[2024-06-22 10:58] VITALS: TEMP 98.4
[2024-06-22] MEDS: FUROSEMIDE 20 MG TAB PO SCH (11:43)
--- NOTE | 2024-06-22 12:48 | P.PN ---
Subjective Progress Note Date: 06/22/24 Reason for Consult (text): Pulmonary edema History of present illness: This is a 69-year-old female patient of Dr. Last with a past medical history significant for hypertension, hypothyroidism, anxiety, bipolar disorder, depression, nicotine dependence, marijuana use, fibromyalgia, chronic right knee wound and GERD. Patient has had multiple admissions to the hospital over the past year including for heart failure with preserved EF, nonsustained ventricular tachycardia, bradycardia and beta-nahum was discontinued. We have been asked to evaluate the patient for pulmonary edema. When patient is asked why she came into the hospital she starts crying and states that everything hurts everything in her body hurts. She states she needs something for pain more than Tylenol. She is complaints of head and neck pain. She also has chest pain but states it starts from her arms bilaterally with numbness and tingling and then into her chest. Chest pain is in the middle of her chest. She also complains of congestion in her chest and cough. She also states that she had some lower extremity edema which has resolved. Patient was started on IV Lasix 20 mg currently at daily and states she has urinated a lot, "too much and I do not want to take it anymore." Patient is an active smoker of a half a pack per day and is on home O2 at 3 L nasal cannula. Patient states her shortness of breath has improved since arrival. -EKG reveals sinus mechanism with no signs of acute ischemia, IVCD -Chest xray bilateral pleural effusions with pulmonary vascular congestion -Laboratory data: Hemoglobin 13.1. Sodium initially 123 now 129, creatinine 0.57, potassium 4.6, magnesium 2.3. proBNP 2290. -Current home cardiac medications: Lisinopril 20 mg daily, Lopressor 25 mg twice daily. -Most recent echocardiogram 04/11/2024: Limited study with normal biventricular systolic function. -Lexiscan Cardiolite stress test performed in the office on 01/27/2023 revealed fixed inferior perfusion defect consistent with diaphragmatic attenuation artifact. No other myocardial perfusion defects to suggest ischemia. Normal left ventricular EF 60%. 06/22/2024 Patient seen and examined. She is scheduled for dobutamine stress echocardiogram today. Unfortunately, patient's blood pressure was initially too high and even with hydralazine, it was elevated. Patient was very upset agitated and was unable to perform the DSE. This was subsequently canceled. Blood pressure readings have been more elevated and amlodipine was added. However, blood pressure readings remain elevated. Will also increase lisinopril. PHYSICAL EXAM: VITAL SIGNS: Reviewed. GENERAL: Well-developed in no acute distress. HEENT: Head is normocephalic. Pupils are equal, round. Sclerae anicteric. Mucous membranes of the mouth are moist. Neck supple. No JVD or thyromegaly LUNGS: Respirations even and unlabored. Lungs essentially clear to auscultation bilaterally. HEART: Regular rate and rhythm. S1 and S2 heard. Systolic murmur ABDOMEN: Soft. Nondistended. Nontender. EXTREMITIES: Dressing to right knee noted. No clubbing or cyanosis. Peripheral pulses intact. No lower extremity edema NEUROLOGIC: Awake and alert. Oriented x 3. ASSESSMENT: Acute on chronic heart failure with preserved EF Chest pain History of nonsustained ventricular tachycardia History of sinus bradycardia Chronic hypoxic respiratory failure on home oxygen on 3 L nasal cannula Fibromyalgia Hypertension Hypothyroidism Anxiety Bipolar disorder Depression Nicotine dependence with active tobacco use of half a pack per day Marijuana use PLAN: Continue current cardiac medications Continue patient on Lasix 20 mg daily oral If patient's blood pressure is improved by this afternoon, she is cleared for discharge from cardiology and may follow-up with Dr. Last in the office in 1 to 2 weeks. Nurse practitioner note has been reviewed by physician. Signing provider agrees with the documented findings, assessment, and plan of care documented by INDUSTRIAL RELATIONS WORKER as a scribe. Objective - Vital Signs Vital signs: Vital Signs Temp 98.5 F 06/22/24 03:16 Pulse 68 06/22/24 07:58 Resp 18 06/22/24 03:16 BP 183/84 06/22/24 03:16 Pulse Ox 98 06/22/24 03:16 FiO2 Intake & Output 06/21/24 06/22/24 06/22/24 18:59 06:59 18:59 Intake Total 360 Output Total 2700 1700 Balance -2340 -1700 Weight 69.4 kg 67.5 kg Intake: Oral 360 Output: Urine 2700 1700 Other: Voiding Method Bedside Commode Bedside Commode # Voids 0 - Labs CBC & Chem 7: 06/21/24 05:31 06/22/24 06:49 Labs: Abnormal Lab Results - Last 24 Hours (Table) 06/22/24 Range/Units 06:49 Sodium 129 L (137-145) mmol/L Chloride 93 L (98-107) mmol/L Carbon Dioxide 39 H (22-30) mmol/L Creatinine 0.48 L (0.52-1.04) mg/dL
[2024-06-22] MEDS: lisinopriL 10 MG TAB PO STA (13:00)
[2024-06-22 15:01] VITALS: BP 144/65
[2024-06-22 15:09] VITALS: PULSE 72
[2024-06-23] MEDS ORDERED: lisinopriL 10 MG TAB PO SCH (09:00)
== END 2024-06-22 17:19 | disposition home or self-care (01) | DRG 643 ==
LOC: EC 07:18 → 3SCARD 09:24
PROVIDERS: ADMIT Internal Medicine; ATTEND Internal Medicine
DX: E22.2 Syndrome of inappropriate secretion of antidiuretic hormone (principal); I50.33 Acute on chronic diastolic (congestive) heart failure; I47.20 Ventricular tachycardia, unspecified; J96.11 Chronic respiratory failure with hypoxia; L97.811 Non-pressure chronic ulcer of other part of right lower leg limited to breakdown of skin; I11.0 Hypertensive heart disease with heart failure; Z99.81 Dependence on supplemental oxygen; F31.9 Bipolar disorder, unspecified; J44.89 Other specified chronic obstructive pulmonary disease; E03.9 Hypothyroidism, unspecified; F17.210 Nicotine dependence, cigarettes, uncomplicated; M62.838 Other muscle spasm; E83.42 Hypomagnesemia; F41.0 Panic disorder [episodic paroxysmal anxiety]; M50.30 Other cervical disc degeneration, unspecified cervical region; M48.02 Spinal stenosis, cervical region; M79.7 Fibromyalgia; M19.90 Unspecified osteoarthritis, unspecified site; E86.1 Hypovolemia; T50.905A Adverse effect of unspecified drugs, medicaments and biological substances, initial encounter; Z79.51 Long term (current) use of inhaled steroids; Z79.890 Hormone replacement therapy; Z79.899 Other long term (current) drug therapy; Z98.84 Bariatric surgery status; Z86.711 Personal history of pulmonary embolism; Z86.14 Personal history of Methicillin resistant Staphylococcus aureus infection; Z86.16 Personal history of COVID-19
CPT/HCPCS: 36415; 71046; 80048; 80053; 81003; 82550; 83735; 83880; 83930; 84484; 85025; 93005; 94640; 94760; 96374; 96375; 99291

== ENCOUNTER 2024-06-26 11:22 | Inpatient (IN) | payer MEDICARE ==
[2024-06-26] MEDS: HYDROmorphone 1 MG/ML 1 ML SYRINGE IVP STA ×2 (12:48→16:08)
[2024-06-26 12:54] LABS: Basophils # (A) 0.1 k/uL (0-0.2); Basophils % (A) 1 %; Eosinophils # (A) 0.2 k/uL (0-0.7); Eosinophils % (A) 2 %; HCT 39.3 % (34.0-46.0); HGB 12.7 gm/dL (11.4-16.0); Lymphocytes # (A) 2.6 k/uL (1.0-4.8); Lymphocytes % (A) 26 %; MCH 30.8 pg (25.0-35.0); MCHC 32.3 g/dL (31.0-37.0); MCV 95.4 fL (80.0-100.0); Mean Platelet Volume 6.8; Monocytes # (A) 0.7 k/uL (0-1.0); Monocytes % (A) 7 %; Neutrophils # (A) 6.3 k/uL (1.3-7.7); Neutrophils % (A) 62 %; Platelet Count 227 k/uL (150-450); RBC 4.12 m/uL (3.80-5.40); RDW 12.8 % (11.5-15.5); WBC 10.1 k/uL (3.8-10.6)
[2024-06-26 13:22] LABS: ALT 34 U/L (4-34); African American GFR (CKD) >90 (>60 ml/min/1.73 sqM); Albumin 4.1 g/dL (3.5-5.0); Anion Gap 2 mmol/L; Blood Urea Nitrogen 14 mg/dL (7-17); Calcium 9.4 mg/dL (8.4-10.2); Carbon Dioxide 33 mmol/L (22-30); Chloride 87 mmol/L (98-107); Glucose 90 mg/dL (74-99); Non-African American GFR(CKD) >90 (>60 ml/min/1.73 sqM); Sodium 122 mmol/L (137-145); Total Bilirubin 0.5 mg/dL (0.2-1.3); Total Protein 6.4 g/dL (6.3-8.2)
[2024-06-26 13:27] LABS: AST 46 U/L (14-36); Magnesium 1.5 mg/dL (1.6-2.3); Potassium 5.1 mmol/L (3.5-5.1)
[2024-06-26 13:28] LABS: Alkaline Phosphatase 56 U/L (38-126)
--- NOTE | 2024-06-26 14:04 | XR ---
EXAMINATION TYPE: XR Hip Complete LT DATE OF EXAM: 06/26/2024 1:50 PM COMPARISON: 05/16/2024 CLINICAL INDICATION: Female, 69 years old with history of hip pain, pain TECHNIQUE: XR Hip Complete LT; Frontal and lateral views FINDINGS: No evidence for acute process, joint dislocation or significant soft tissue swelling. Osteo phyte formation of the superior acetabulum of the hip. There is mild joint space narrowing. IMPRESSION: 1. No evidence for acute process. 2. Mild hip osteoarthrosis. [facility], , 06/26/2024 2:02 PM
--- NOTE | 2024-06-26 14:43 | CT ---
EXAMINATION TYPE: CT abdomen pelvis w con DATE OF EXAM: 06/26/2024 COMPARISON: 03/30/2024 CLINICAL INDICATION: Female, 69 years old with history of abd pain; PHH, abdominal and flank pain TECHNIQUE: Performed without Oral Contrast and with IV Contrast, patient injected with 100ml mL of Isovue 300. CT DLP: 1005.[address] CTDI: mGy Automated exposure control for dose reduction was used. FINDINGS: There is a right lower lobe infiltrate which appears smaller and less consolidative compared to the p rior study. There are postsurgical changes along the stomach. There is surgical absence of the gallbladder. There is no biliary ductal dilatation. There is a 2.8 cm low density mass in the right adrenal gland most likely representing a benign adeno ma There is mild right hydronephrosis. There is a 4.4 mm calculus in the region the right UVJ which coul d be obstructing the collecting system. There is an additional 4.3 mm calculus in the central right r enal collecting system. There are no left renal calcifications. The caliber the abdominal aorta is normal is no retroperitoneal adenopathy or hemorrhage. The bowel loops are normal in caliber and there is no evidence of dilatation or obstruction. No infla mmatory changes are identified in the bowel wall or mesentery. There is an incisional hernia containi ng bowel loops which are not strangulated or edematous. There is no free intraperitoneal air or fluid. No pelvic mass, free fluid, abscess or adenopathy. The osseous structures and soft tissues are intact. IMPRESSION: 1. Right lower lobe infiltrate decreased in size compared to the prior study. 2. Suspect mild right hydronephrosis secondary to a 4.3 mm calculus in the right UVJ. Second 4.3 mm c alculus in the central right renal collecting system [facility], , 06/26/2024 2:41 PM
[2024-06-26 14:57] LABS: Appearance,Urine Clear (Clear); Bilirubin,Urine Negative (Negative); Blood,Urine Negative (Negative); Color,Urine Colorless; Glucose,Urine (UA) Negative (Negative); Ketones,Urine Negative (Negative); Leukocyte Esterase,Urine Negative (Negative); Nitrite,Urine Negative (Negative); PH, Urine 7.5 (5.0-8.0); Protein,Urine Negative (Negative); Specific Gravity,Urine 1.007 (1.001-1.035); Urobilinogen,Urine <2.0 mg/dL (<2.0)
--- NOTE | 2024-06-26 15:02 | ED ---
General Adult HPI - General Chief complaint: Back Pain/Injury Stated complaint: Back pain Time Seen by Provider: 06/26/24 12:30 Source: patient Mode of arrival: ambulatory Limitations: no limitations - History of Present Illness Initial comments: 69-year-old female with past medical history of SIADH, COPD, anxiety who presents the emergency department reporting diffuse bodyaches. Patient has been seen multiple times for myalgias, neck pain, flank pain. Patient was just discharged from the hospital. She presents today stating that this is the worst the pain has ever been. She does not have anything to take at home for pain other than Tylenol. She is complaining of her same left-sided neck pain but now she has some mid abdominal pain radiating to her left hip. She was placed on a diuretic and is concerned that her salt levels are low. She denies any fevers. No chest pain or difficulty breathing. No other alleviating, precipitating or modifying factors - Related Data Home Medications Medication Instructions Recorded Confirmed Montelukast [Singulair] 10 mg PO HS 12/17/13 06/26/24 Levothyroxine Sodium [Synthroid] 150 mcg PO DAILY 03/29/20 06/26/24 Budesonide/Formoterol Fumarate 2 puff INHALATION RT-BID 06/12/21 06/26/24 [Symbicort 160-4.5 Mcg Inhaler] Famotidine [Pepcid] 20 mg PO BID 09/03/21 06/26/24 Tamsulosin [Flomax] 0.4 mg PO DAILY 10/26/21 06/26/24 Ipratropium-Albuterol Nebulize 3 ml INHALATION RT-QID PRN 11/13/22 06/26/24 [Duoneb 0.5 mg-3 mg/3 ml Soln] Ibandronate Sodium [Boniva] 150 mg PO Q30D 05/03/23 06/26/24 clonazePAM [KlonoPIN ODT] 0.25 mg PO HS 12/12/23 06/26/24 lamoTRIgine [LaMICtal] 100 mg PO BID 03/18/24 06/26/24 Metoprolol Tartrate [Lopressor] 25 mg PO BID 05/16/24 06/26/24 Gabapentin 300 mg PO TID 06/01/24 06/26/24 busPIRone HCL [Buspar] 30 mg PO BID 06/09/24 06/26/24 Previous Rx's Medication Instructions Recorded Albuterol Inhaler [Ventolin Hfa 2 puff INHALATION RT-QID PRN #1 11/17/22 Inhaler] each Pyridoxine [Vitamin B-6] 50 mg PO DAILY #30 tab 03/28/24 Divalproex ER [Depakote ER] 250 mg PO BID #60 tab 05/26/24 OLANZapine [ZyPREXA] 5 mg PO HS #30 tab 05/26/24 Venlafaxine HCl ER [Effexor XR] 75 mg PO DAILY #30 cap 05/26/24 Acetaminophen Tab [Tylenol] 650 mg PO Q6HR PRN tab 06/02/24 Cyclobenzaprine [Flexeril] 10 mg PO TID PRN 15 Days #30 tab 06/11/24 Furosemide [Lasix] 20 mg PO DAILY #30 tab 06/22/24 amLODIPine [Norvasc] 10 mg PO DAILY #30 tab 06/22/24 lisinopriL [Prinivil] 30 mg PO DAILY #90 tab 06/22/24 HYDROcodone/APAP 5-325MG [Rice 1 tab PO Q4HR PRN 3 Days #15 tab 06/28/24 5-325] Tolvaptan [Samsca] 7.5 mg PO WESA 8 Days #4 tablet 06/28/24 Allergies Allergy/AdvReac Type Severity Reaction Status Date / Time codeine Allergy Unknown Verified 06/26/24 11:33 Childhood Penicillins Allergy Rash/Hives Verified 06/26/24 11:33 Sulfa (Sulfonamide Allergy Rash/Hives Verified 06/26/24 11:33 Antibiotics) Review of Systems ROS Statement: Those systems with pertinent positive or pertinent negative responses have been documented in the HPI. ROS Other: All systems not noted in ROS Statement are negative. 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 History of Any Multi-Drug Resistant Organisms: MRSA Date of last positivie culture/infection: 03/2024 MDRO Source:: Knee Past Surgical History: Bariatric Surgery, Section, Cholecystectomy, Hysterectomy, Tonsillectomy Additional Past Surgical History / Comment(s): EGD, colonoscopies, gastric bypa ss, surgery for deviated septum, left cataract removal (having laser procedure on that eye 11/24/23) Past Anesthesia/Blood Transfusion Reactions: Previous Problems w/ Anesthesia Additional Past Anesthesia/Blood Transfusion Reaction / Comment(s): itching after hysterectomy, some kind of breathing problem after gastric bypass-not sure what happened Past Psychological History: Anxiety, Bipolar, Depression, Panic Disorder Smoking Status: Current every day smoker Past Alcohol Use History: None Reported Past Drug Use History: None Reported - Past Family History Mother Family Medical History: Congestive Heart Failure (CHF), Hypertension Father History Unknown: Yes Additional Family Medical History / Comment(s): Father at the age of 45 yrs d/t having had rheumatic fever as a child and heart valve disease. General Exam Limitations: no limitations General appearance: alert, in distress (crying, wailing, very anxious) Head exam: Present: atraumatic, normocephalic, normal inspection Eye exam: Present: normal appearance, PERRL, EOMI. Absent: scleral icterus, conjunctival injection, periorbital swelling ENT exam: Present: normal exam, mucous membranes moist Neck exam: Present: normal inspection. Absent: tenderness, meningismus, lymphadenopathy Respiratory exam: Present: normal lung sounds bilaterally. Absent: respiratory distress, wheezes, rales, rhonchi, stridor Cardiovascular Exam: Present: regular rate, normal rhythm, normal heart sounds. Absent: systolic murmur, diastolic murmur, rubs, gallop, clicks GI/Abdominal exam: Present: soft, normal bowel sounds. Absent: distended, tenderness, guarding, rebound, rigid Extremities exam: Present: normal inspection, full ROM, normal capillary refill. Absent: tenderness, pedal edema, joint swelling, calf tenderness Back exam: Present: normal inspection Neurological exam: Present: alert, oriented X3, CN II-XII intact Psychiatric exam: Present: normal affect, normal mood Skin exam: Present: warm, dry, intact, normal color. Absent: rash Course Vital Signs 06/26/24 06/26/24 06/26/24 11:29 17:09 21:21 Temperature 98.2 F Pulse Rate 66 61 70 Pulse Rate [ Pulse Oximetery ] Respiratory 20 16 18 Rate Blood Pressure 168/76 141/66 132/59 Blood Pressure [Left Arm] O2 Sat by Pulse 92 L 95 97 Oximetry 06/26/24 06/26/24 22:09 22:46 Temperature 97.8 F Pulse Rate 67 Pulse Rate [ 63 Pulse Oximetery ] Respiratory 18 19 Rate Blood Pressure 163/74 Blood Pressure 185/75 [Left Arm] O2 Sat by Pulse 96 93 L Oximetry Medical Decision Making - Medical Decision Making Was pt. sent in by a medical professional or institution (, PA, COSMETICS COUNTER MANAGER, urgent care, hospital, or alf...) When possible be specific @ -No Did you speak to anyone other than the patient for history (EMS, parent, family, police, friend...)? What history was obtained from this source @ -I spoke with her for history Did you review nursing and triage notes (agree or disagree)? Why? @ -I reviewed and agree with nursing and triage notes Were old charts reviewed (outside hosp., previous admission, EMS record, old EKG, old radiological studies, urgent care reports/EKG's, alf records)? Report findings @ -I reviewed her discharge summary from June Differential Diagnosis (chest pain, altered mental status, abdominal pain women, abdominal pain men, vaginal bleeding, weakness, fever, dyspnea, syncope, headache, dizziness, GI bleed, back pain, seizure, CVA, palpatations, mental health, musculoskeletal)? @ -Differential Musculoskeletal Muscular strain, contusion, ligament sprain, fracture, arthritis, septic arthritis, bursitis, cellulitis, muscle spasm, nerve compression, DVT, arterial occlusion, herpes zoster, electrolyte abnormality, tumor.... This is not meant to be in all inclusive list Differential Weakness: Hypoglycemia, shock, sepsis, hyponatremia, anemia, infection, [place], ETOH, adverse medicine reaction, overdose, stroke, this is not meant to be an all-inclusive list. EKG interpreted by me (3pts min.). @ -Yes and demonstrates sinus rhythm with a rate of 69. Parable 157. QRS 132. QTc of 402. No acute ST segment elevations or depressions X-rays interpreted by me (1pt min.). @ -Yes and demonstrates no fracture CT interpreted by me (1pt min.). @ -Yes and demonstrates right-sided ureterolithiasis U/S interpreted by me (1pt. min.). @ -None done What testing was considered but not performed or refused? (CT, X-rays, U/S, labs)? Why? @ -None What meds were considered but not given or refused? Why? @ -None Did you discuss the management of the patient with other professionals (professionals i.e. , PA, COSMETICS COUNTER MANAGER, lab, RT, psych nurse, director of social services, infusion nurse, teacher, customs patrol officer, bilingual patient support caseworker)? Give summary @ -Spoke with Dr. Pratt for admission Was smoking cessation discussed for >3mins.? @ -No Was critical care preformed (if so, how long)? @ -No Were there social determinants of health that impacted care today? How? (Homelessness, low income, unemployed, alcoholism, drug addiction, transportation, low edu. Level, literacy, decrease access to med. care, snf, rehab)? @ -No Was there de-escalation of care discussed even if they declined (Discuss DNR or withdrawal of care, Hospice)? DNR status @ -No What co-morbidities impacted this encounter? (DM, HTN, Smoking, COPD, CAD, Ca ncer, CVA, ARF, Chemo, Hep., AIDS, mental health diagnosis, sleep apnea, morbid obesity)? @ -SIADH, chronic neck pain, COPD on oxygen Was patient admitted / discharged? Hospital course, mention meds given and route, prescriptions, significant lab abnormalities, going to OR and other pertinent info. @ -Upon arrival patient seen and evaluated in bed 8. Thorough history and physical exam was performed. IV access was established. Laboratory studies were conducted. Hip x-ray was performed as patient is reporting left-sided flank and hip pain. CT of the abdomen pelvis was performed. Patient found to have recurrent hyponatremia which requires admission. I spoke with Dr. Olea in regards to the recommendations. She wants the patient on normal saline with a recheck sodium in 4 hours. I spoke with Dr. Payne for the admission. Patient found to have a right sided ureteral stone however pain is left-sided and therefore possibly not the cause. Patient was agreeable to admission Undiagnosed new problem with uncertain prognosis? @ -No Drug Therapy requiring intensive monitoring for toxicity (Heparin, Nitro, Insulin, Cardizem)? @ -No Were any procedures done? @ -No Diagnosis/symptom? @ -Acute myalgias, acute on chronic hyponatremia, history of SIADH, right sided ureteral stone, left flank pain Acute, or Chronic, or Acute on Chronic? @ -Acute on chronic Uncomplicated (without systemic symptoms) or Complicated (systemic symptoms)? @ -Complicated Side effects of treatment? @ -No Exacerbation, Progression, or Severe Exacerbation? @ -No Poses a threat to life or bodily function? How? (Chest pain, [place], [place], pneumonia, PE, COPD, DKA, ARF, appy, cholecystitis, CVA, Diverticulitis, Homicidal, Suicidal, threat to staff... and all critical care pts) @ -No - Lab Data Result diagrams: 06/27/24 06:24 06/28/24 06:12 Lab Results 06/26/24 06/26/24 06/26/24 Range/Units 12:46 12:46 12:46 WBC 10.1 (3.8-10.6) k/uL RBC 4.12 (3.80-5.40) m/uL Hgb 12.7 (11.4-16.0) gm/dL Hct 39.3 (34.0-46.0) % MCV 95.4 (80.0-100.0) fL MCH 30.8 (25.0-35.0) pg MCHC 32.3 (31.0-37.0) g/dL RDW 12.8 (11.5-15.5) % Plt Count 227 (150-450) k/uL MPV 6.8 Neutrophils % 62 % Lymphocytes % 26 % Monocytes % 7 % Eosinophils % 2 % Basophils % 1 % Neutrophils # 6.3 (1.3-7.7) k/uL Lymphocytes # 2.6 (1.0-4.8) k/uL Monocytes # 0.7 (0-1.0) k/uL Eosinophils # 0.2 (0-0.7) k/uL Basophils # 0.1 (0-0.2) k/uL Sodium 122 L (137-145) mmol/L Potassium 5.1 (3.5-5.1) mmol/L Chloride 87 L (98-107) mmol/L Carbon Dioxide 33 H (22-30) mmol/L Anion Gap 2 mmol/L BUN 14 (7-17) mg/dL Creatinine 0.48 L (0.52-1.04) mg/dL Est GFR (CKD-EPI)AfAm >90 (>60 ml/min/1.73 sqM) Est GFR (CKD-EPI)NonAf >90 (>60 ml/min/1.73 sqM) Glucose 90 (74-99) mg/dL Plasma Lactic Acid Joel 0.6 L (0.7-2.0) mmol/L Calcium 9.4 (8.4-10.2) mg/dL Magnesium 1.5 L (1.6-2.3) mg/dL Total Bilirubin 0.5 (0.2-1.3) mg/dL AST 46 H (14-36) U/L ALT 34 (4-34) U/L Alkaline Phosphatase 56 (38-126) U/L Total Protein 6.4 (6.3-8.2) g/dL Albumin 4.1 (3.5-5.0) g/dL Urine Color Urine Appearance (Clear) Urine pH (5.0-8.0) Ur Specific [place] (1.001-1.035) Urine Protein (Negative) Urine Glucose (UA) (Negative) Urine Ketones (Negative) Urine Blood (Negative) Urine Nitrite (Negative) Urine Bilirubin (Negative) Urine Urobilinogen (<2.0) mg/dL Ur Leukocyte Esterase (Negative) 06/26/24 Range/Units 13:15 WBC (3.8-10.6) k/uL RBC (3.80-5.40) m/uL Hgb (11.4-16.0) gm/dL Hct (34.0-46.0) % MCV (80.0-100.0) fL MCH (25.0-35.0) pg MCHC (31.0-37.0) g/dL RDW (11.5-15.5) % Plt Count (150-450) k/uL MPV Neutrophils % % Lymphocytes % % Monocytes % % Eosinophils % % Basophils % % Neutrophils # (1.3-7.7) k/uL Lymphocytes # (1.0-4.8) k/uL Monocytes # (0-1.0) k/uL Eosinophils # (0-0.7) k/uL Basophils # (0-0.2) k/uL Sodium (137-145) mmol/L Potassium (3.5-5.1) mmol/L Chloride (98-107) mmol/L Carbon Dioxide (22-30) mmol/L Anion Gap mmol/L BUN (7-17) mg/dL Creatinine (0.52-1.04) mg/dL Est GFR (CKD-EPI)AfAm (>60 ml/min/1.73 sqM) Est GFR (CKD-EPI)NonAf (>60 ml/min/1.73 sqM) Glucose (74-99) mg/dL Plasma Lactic Acid Joel (0.7-2.0) mmol/L Calcium (8.4-10.2) mg/dL Magnesium (1.6-2.3) mg/dL Total Bilirubin (0.2-1.3) mg/dL AST (14-36) U/L ALT (4-34) U/L Alkaline Phosphatase (38-126) U/L Total Protein (6.3-8.2) g/dL Albumin (3.5-5.0) g/dL Urine Color Colorless Urine Appearance Clear (Clear) Urine pH 7.5 (5.0-8.0) Ur Specific [place] 1.007 (1.001-1.035) Urine Protein Negative (Negative) Urine Glucose (UA) Negative (Negative) Urine Ketones Negative (Negative) Urine Blood Negative (Negative) Urine Nitrite Negative (Negative) Urine Bilirubin Negative (Negative) Urine Urobilinogen <2.0 (<2.0) mg/dL Ur Leukocyte Esterase Negative (Negative) Disposition Clinical Impression: Hyponatremia, Ureteral stone with hydronephrosis, Myalgia Disposition: ADMITTED IP TO THIS [facility] Condition: Stable Is patient prescribed a controlled substance at d/c from ED?: No Time of Disposition: 15:58 Decision to Admit Reason: Admit from EC Decision Date: 06/26/24 Decision Time: 15:58
[2024-06-26] MEDS ORDERED: NALOXONE 0.4 MG/ML 1 ML VIAL IV PRN (15:58)
[2024-06-26] MEDS: DEXTROSE 5% IN WATER 1,000 ML IV SCH (16:08)
[2024-06-26] MEDS: SODIUM CHLORIDE 0.9% 1,000 ML IV SCH (18:02)
[2024-06-26] MEDS: SYMBICORT 160-4.5 MCG INHALER INHALATION SCH (18:05)
[2024-06-26] MEDS: clonazePAM 0.5 MG TAB PO SCH (21:42)
[2024-06-26] MEDS: lamoTRIgine 100 MG TAB PO SCH (21:43)
[2024-06-26] MEDS: OLANZapine 5 MG TAB PO SCH (21:43)
[2024-06-26] MEDS: METOPROLOL TARTRATE 25 MG TAB PO SCH (21:44)
[2024-06-26] MEDS: busPIRone HCl 10 MG TAB PO SCH (21:44)
[2024-06-26] MEDS: FAMOTIDINE 20 MG TAB PO SCH (21:44)
[2024-06-26] MEDS: MONTELUKAST 10 MG TAB PO SCH (21:44)
[2024-06-26] MEDS: GABAPENTIN 300 MG CAP PO SCH (22:23)
[2024-06-26] MEDS: ACETAMINOPHEN TAB 325 MG TAB PO PRN (23:25)
[2024-06-26] MEDS: CYCLOBENZAPRINE 10 MG TAB PO PRN (23:26)
[2024-06-26] MEDS: DIVALPROEX ER 250 MG TAB.ER.24H PO SCH (23:27)
[2024-06-27] MEDS: KETOROLAC 15 MG/ML 1 ML VIAL IVP PRN (00:19)
[2024-06-27] MEDS: LEVOTHYROXINE 75 MCG TAB PO SCH (05:53)
[2024-06-27] MEDS: amLODIPine 10 MG TAB PO SCH (06:11)
[2024-06-27] MEDS: lisinopriL 10 MG TAB PO SCH (07:56)
[2024-06-27] MEDS: VENLAFAXINE HCL ER 75 MG CAP PO SCH (07:57)
[2024-06-27] MEDS: TAMSULOSIN 0.4 MG CAP.ER.24H PO SCH (07:57)
[2024-06-27] MEDS: ALBUTEROL NEBULIZED 2.5 MG/3 ML INHALATION PRN (08:19)
[2024-06-27 08:46] LABS: Basophils # (A) 0.07 X 10*3/uL (0.00-0.10); Basophils % (A) 0.9 %; Eosinophils % (A) 2.5 %; HGB 12.6 g/dL (12.0-15.0); Lymphocytes # (A) 1.75 X 10*3/uL (0.90-5.00); Lymphocytes % (A) 22.2 %; MCH 30.8 pg (27.0-32.0); MCHC 32.3 g/dL (32.0-37.0); MCV 95.4 FL (80.0-97.0); Mean Platelet Volume 9.8 FL (9.5-12.2); Monocytes # (A) 0.76 X 10*3/uL (0.20-1.00); Monocytes % (A) 9.7 %; NRBC Per 100 WBC 0 X 10*3/uL (0.00-0.01); Neutrophils # (A) 5.06 X 10*3/uL (1.80-7.70); Neutrophils % (A) 64.3 %; Platelet Count 204 X 10*3/uL (140-440); RBC 4.09 X 10*6/uL (4.10-5.20); RDW 12.4 % (11.5-14.5); WBC 7.87 X 10*3/uL (4.50-10.00)
[2024-06-27] MEDS ORDERED: Magnesium Replacement Protocol 1 EACH MISC MISCELLANE PRN (09:56)
[2024-06-27] MEDS: MAGNESIUM SULFATE-D5W PMX 1 GM in DEXTROSE/WATER 1 100ML.BAG IVPB SCH (10:15)
[2024-06-27 10:39] LABS: Blood Urea Nitrogen 9.1 mg/dL (9.0-27.0); Calcium 9.4 mg/dL (8.7-10.3); Carbon Dioxide 32.6 mmol/L (21.6-31.8); Chloride 90 mmol/L (96-109); Glucose 70 mg/dL (70-110); Potassium 4.8 mmol/L (3.5-5.5); Sodium 128 mmol/L (135-145)
--- NOTE | 2024-06-27 11:51 | P.GSCN ---
History of Present Illness Consult date: 06/27/24 Reason for Consult: Right ureteral stone History of present illness: This is a 69-year-old female admitted to the hospital with multiple complaints. Urology is consulted for finding of right sided ureteral stone. Patient has been experiencing left neck pain that is radiating to the left flank and down to the left hip. She underwent a CT abdomen and pelvis that showed evidence of a 4 mm right-sided distal stone and a 4 mm right-sided renal stone with mild hydronephrosis. No previous history of kidney stones. She denies any dysuria or gross hematuria. She is not having any right-sided flank pain. Of note the CT also showed evidence of bladder distention her urine analysis on presentation is within normal limits Review of Systems - Constitutional Denies fever, Denies weight loss - EENT Ears, nose, mouth and throat: Denies dysphagia - Cardiovascular Reports shortness of breath, Denies chest pain - Respiratory Denies cough, Denies 7 - Gastrointestinal Reports abdominal pain, Denies nausea, Denies vomiting - Genitourinary Genitourinary: Denies dysuria, Denies hematuria - Musculoskeletal Reports leg numbness/tingling, Reports low back pain, Reports neck pain Past Medical History Past Medical History: Asthma, Heart Failure, COPD, Fibromyalgia, GERD/Reflux, Hypertension, Osteoarthritis (OA), Pneumonia, Pulmonary Embolus (PE), Skin Disorder, Thyroid Disorder Additional Past Medical History / Comment(s): Spinal Stenosis, Cervical disc disease/stenosis, scoliosis, numbness/tingling L side of face/neck, hx of L hemidiaphragmatic elevation-possibly genetic, recently bronchitis and past bronchitis, electrolyte problem/kidney function being affected, hx of pulmonary emboli, past bilateral lower extremity cellulitis, edema lower extremities, IBS, hemorrhoids, benign colon polyps, sinus problems, UTIs, bacteremia/sepsis, c ardiac murmur, past L ankle and L wrist fractures. History of Any Multi-Drug Resistant Organisms: MRSA Year Discovered:: 03/2024 MDRO Source:: Knee Past Surgical History: Bariatric Surgery, Section, Cholecystectomy, Hysterectomy, Tonsillectomy Additional Past Surgical History / Comment(s): EGD, colonoscopies, gastric bypass, surgery for deviated septum, left cataract removal (having laser procedure on that eye 11/24/23) Past Anesthesia/Blood Transfusion Reactions: Previous Problems w/ Anesthesia Additional Past Anesthesia/Blood Transfusion Reaction / Comm: itching after hysterectomy, some kind of breathing problem after gastric bypass-not sure what happened Past Psychological History: Anxiety, Bipolar, Depression, Panic Disorder Additional Psychological History / Comment(s): . Smoking Status: Current every day smoker Past Alcohol Use History: None Reported Additional Past Alcohol Use History / Comment(s): Pt started smoking in 1986 and quit when she went into [facility] 08/2021, started again and smokes about half a pack a day. Past Drug Use History: None Reported Additional Drug Use History / Comment(s): occassional cannabis use per pt - Past Family History Mother Family Medical History: Congestive Heart Failure (CHF), Hypertension Father History Unknown: Yes Additional Family Medical History / Comment(s): Father at the age of 45 yrs d/t having had rheumatic fever as a child and heart valve disease. Medications and Allergies Home Medications Medication Instructions Recorded Confirmed Type Montelukast [Singulair] 10 mg PO HS 12/17/13 06/26/24 History Levothyroxine Sodium [Synthroid] 150 mcg PO DAILY 03/29/20 06/26/24 History Budesonide/Formoterol Fumarate 2 puff INHALATION RT-BID 06/12/21 06/26/24 History [Symbicort 160-4.5 Mcg Inhaler] Famotidine [Pepcid] 20 mg PO BID 09/03/21 06/26/24 History Tamsulosin [Flomax] 0.4 mg PO DAILY 10/26/21 06/26/24 History Ipratropium-Albuterol Nebulize 3 ml INHALATION RT-QID PRN 11/13/22 06/26/24 H istory [Duoneb 0.5 mg-3 mg/3 ml Soln] Albuterol Inhaler [Ventolin Hfa 2 puff INHALATION RT-QID PRN #1 11/17/22 06/26/24 Rx Inhaler] each Ibandronate Sodium [Boniva] 150 mg PO Q30D 05/03/23 06/26/24 History clonazePAM [KlonoPIN ODT] 0.25 mg PO HS 12/12/23 06/26/24 History lamoTRIgine [LaMICtal] 100 mg PO BID 03/18/24 06/26/24 History Pyridoxine [Vitamin B-6] 50 mg PO DAILY #30 tab 03/28/24 06/26/24 Rx Metoprolol Tartrate [Lopressor] 25 mg PO BID 05/16/24 06/26/24 History Divalproex ER [Depakote ER] 250 mg PO BID #60 tab 05/26/24 06/26/24 Rx OLANZapine [ZyPREXA] 5 mg PO HS #30 tab 05/26/24 06/26/24 Rx Sodium Chloride Tab 1 gm PO DAILY #30 tab 05/26/24 06/26/24 Rx Venlafaxine HCl ER [Effexor XR] 75 mg PO DAILY #30 cap 05/26/24 06/26/24 Rx Gabapentin 300 mg PO TID 06/01/24 06/26/24 History Acetaminophen Tab [Tylenol] 650 mg PO Q6HR PRN tab 06/02/24 06/26/24 Rx busPIRone HCL [Buspar] 30 mg PO BID 06/09/24 06/26/24 History Cyclobenzaprine [Flexeril] 10 mg PO TID PRN 15 Days #30 tab 06/11/24 06/26/24 Rx Furosemide [Lasix] 20 mg PO DAILY #30 tab 06/22/24 06/26/24 Rx amLODIPine [Norvasc] 10 mg PO DAILY #30 tab 06/22/24 06/26/24 Rx lisinopriL [Prinivil] 30 mg PO DAILY #90 tab 06/22/24 06/26/24 Rx Allergies Allergy/AdvReac Type Severity Reaction Status Date / Time codeine Allergy Unknown Verified 06/26/24 11:33 Childhood Penicillins Allergy Rash/Hives Verified 06/26/24 11:33 Sulfa (Sulfonamide Allergy Rash/Hives Verified 06/26/24 11:33 Antibiotics) Surgical - Exam Vital Signs Temp Pulse Resp BP Pulse Ox 98.2 F 66 20 168/76 92 L 06/26/24 11:29 06/26/24 11:29 06/26/24 11:29 06/26/24 11:29 06/26/24 11:29 - General no distress, moderate pain - Eyes normal ocular movement, no pale - ENT normal nares, normal mucosa - Respiratory normal expansion, normal respiratory effort - Abdomen Abdomen: soft, non tender, no distended - Psychiatric oriented to time, oriented to person, oriented to place Results - Labs 06/27/24 06:24 06/27/24 06:24 Abnormal Lab Results - Last 24 Hours (Table) 06/26/24 06/26/24 06/26/24 Range/Units 12:46 12:46 20:57 RBC (4.10-5.20) X 10*6/uL Sodium 122 L 126 L (137-145) mmol/L Chloride 87 L (98-107) mmol/L Carbon Dioxide 33 H (22-30) mmol/L Creatinine 0.48 L (0.52-1.04) mg/dL Plasma Lactic Acid Joel 0.6 L (0.7-2.0) mmol/L Magnesium 1.5 L (1.6-2.3) mg/dL AST 46 H (14-36) U/L Urine Osmolality (400-1100) mOsm/kg 06/26/24 06/27/24 06/27/24 Range/Units 21:25 06:24 06:24 RBC 4.09 L (4.10-5.20) X 10*6/uL Sodium 128 L (137-145) mmol/L Chloride 90 L (98-107) mmol/L Carbon Dioxide 32.6 H (22-30) mmol/L Creatinine 0.5 L (0.52-1.04) mg/dL Plasma Lactic Acid Joel (0.7-2.0) mmol/L Magnesium (1.6-2.3) mg/dL AST (14-36) U/L Urine Osmolality 258 L (400-1100) mOsm/kg Diabetes panel 06/26/24 06/26/24 06/27/24 Range/Units 12:46 20:57 06:24 Sodium 122 L 126 L 128 L (137-145) mmol/L Potassium 5.1 4.8 (3.5-5.1) mmol/L Chloride 87 L 90 L (98-107) mmol/L Carbon Dioxide 33 H 32.6 H (22-30) mmol/L BUN 14 9.1 (7-17) mg/dL Creatinine 0.48 L 0.5 L (0.52-1.04) mg/dL Glucose 90 70 (74-99) mg/dL Calcium 9.4 9.4 (8.4-10.2) mg/dL AST 46 H (14-36) U/L ALT 34 (4-34) U/L Alkaline Phosphatase 56 (38-126) U/L Total Protein 6.4 (6.3-8.2) g/dL Albumin 4.1 (3.5-5.0) g/dL Calcium panel 06/26/24 06/27/24 Range/Units 12:46 06:24 Calcium 9.4 9.4 (8.4-10.2) mg/dL Albumin 4.1 (3.5-5.0) g/dL Pituitary panel 06/26/24 06/26/24 06/27/24 Range/Units 12:46 20:57 06:24 Sodium 122 L 126 L 128 L (137-145) mmol/L Potassium 5.1 4.8 (3.5-5.1) mmol/L Chloride 87 L 90 L (98-107) mmol/L Carbon Dioxide 33 H 32.6 H (22-30) mmol/L BUN 14 9.1 (7-17) mg/dL Creatinine 0.48 L 0.5 L (0.52-1.04) mg/dL Glucose 90 70 (74-99) mg/dL Calcium 9.4 9.4 (8.4-10.2) mg/dL Adrenal panel 06/26/24 06/26/24 06/27/24 Range/Units 12:46 20:57 06:24 Sodium 122 L 126 L 128 L (137-145) mmol/L Potassium 5.1 4.8 (3.5-5.1) mmol/L Chloride 87 L 90 L (98-107) mmol/L Carbon Dioxide 33 H 32.6 H (22-30) mmol/L BUN 14 9.1 (7-17) mg/dL Creatinine 0.48 L 0.5 L (0.52-1.04) mg/dL Glucose 90 70 (74-99) mg/dL Calcium 9.4 9.4 (8.4-10.2) mg/dL Total Bilirubin 0.5 (0.2-1.3) mg/dL AST 46 H (14-36) U/L ALT 34 (4-34) U/L Alkaline Phosphatase 56 (38-126) U/L Total Protein 6.4 (6.3-8.2) g/dL Albumin 4.1 (3.5-5.0) g/dL Assessment and Plan Assessment: 69-year-old female with history of left-sided flank pain with radiation to the hip, CT showed right sided ureteral stone. Her right-sided ureteral stone will not be causing her left-sided pain, the stone is fairly small and she is asymptomatic from it, there is a high chance of spontaneous passage given the lack of pain on that side no further intervention is needed as she is most likely can a pass the stone spontaneously. Of note the CT does show evidence of a distended bladder I do recommend obtaining a bladder scan to rule out urinary retention if her postvoid is greater than 400 mL recommend inserting a Husain catheter
--- NOTE | 2024-06-27 13:47 | P.NPCON ---
History of Present Illness - Reason for Consult hyponatremia - History of Present Illness patient is a 69-year-old female previous history of hyponatremia who was admitted to the hospital with complaints of pain all over her body. Patient was discharged on sodium chloride tabs from her last hospitalization last month. Serum sodium this admission is 122. Blood pressure has been elevated.. Patient is maintained on normal saline. CT of the abdomen showed right ureteral stone of 4 mm. Patient is complaining of pain on the left side. No urinary symptoms. 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 History of Any Multi-Drug Resistant Organisms: MRSA Date of last positivie culture/infection: 03/2024 MDRO Source:: Knee Past Surgical History: Bariatric Surgery, Section, Cholecystectomy, Hysterectomy, Tonsillectomy Additional Past Surgical History / Comment(s): EGD, colonoscopies, gastric bypass, surgery for deviated septum, left cataract removal (having laser procedure on that eye 11/24/23) Past Anesthesia/Blood Transfusion Reactions: Previous Problems w/ Anesthesia Additional Past Anesthesia/Blood Transfusion Reaction / Comment(s): itching after hysterectomy, some kind of breathing problem after gastric bypass-not sure what happened Past Psychological History: Anxiety, Bipolar, Depression, Panic Disorder Additional Psychological History / Comment(s): . Smoking Status: Current every day smoker Past Alcohol Use History: None Reported Additional Past Alcohol Use History / Comment(s): Pt started smoking in 1986 and quit when she went into [facility] 08/2021, started again and smokes about half a pack a day. Past Drug Use History: None Reported Additional Drug Use History / Comment(s): occassional cannabis use per pt - Past Family History Mother Family Medical History: Congestive Heart Failure (CHF), Hypertension Father History Unknown: Yes Additional Family Medical History / Comment(s): Father at the age of 45 yrs d/t having had rheumatic fever as a child and heart valve disease. Medications and Allergies Home Medications Medication Instructions Recorded Confirmed Type Montelukast [Singulair] 10 mg PO HS 12/17/13 06/26/24 History Levothyroxine Sodium [Synthroid] 150 mcg PO DAILY 03/29/20 06/26/24 History Budesonide/Formoterol Fumarate 2 puff INHALATION RT-BID 06/12/21 06/26/24 History [Symbicort 160-4.5 Mcg Inhaler] Famotidine [Pepcid] 20 mg PO BID 09/03/21 06/26/24 History Tamsulosin [Flomax] 0.4 mg PO DAILY 10/26/21 06/26/24 History Ipratropium-Albuterol Nebulize 3 ml INHALATION RT-QID PRN 11/13/22 06/26/24 History [Duoneb 0.5 mg-3 mg/3 ml Soln] Albuterol Inhaler [Ventolin Hfa 2 puff INHALATION RT-QID PRN #1 11/17/22 06/26/24 Rx Inhaler] each Ibandronate Sodium [Boniva] 150 mg PO Q30D 05/03/23 06/26/24 History clonazePAM [KlonoPIN ODT] 0.25 mg PO HS 12/12/23 06/26/24 History lamoTRIgine [LaMICtal] 100 mg PO BID 03/18/24 06/26/24 History Pyridoxine [Vitamin B-6] 50 mg PO DAILY #30 tab 03/28/24 06/26/24 Rx Metoprolol Tartrate [Lopressor] 25 mg PO BID 05/16/24 06/26/24 History Divalproex ER [Depakote ER] 250 mg PO BID #60 tab 05/26/24 06/26/24 Rx OLANZapine [ZyPREXA] 5 mg PO HS #30 tab 05/26/24 06/26/24 Rx Sodium Chloride Tab 1 gm PO DAILY #30 tab 05/26/24 06/26/24 Rx Venlafaxine HCl ER [Effexor XR] 75 mg PO DAILY #30 cap 05/26/24 06/26/24 Rx Gabapentin 300 mg PO TID 06/01/24 06/26/24 History Acetaminophen Tab [Tylenol] 650 mg PO Q6HR PRN tab 06/02/24 06/26/24 Rx busPIRone HCL [Buspar] 30 mg PO BID 06/09/24 06/26/24 History Cyclobenzaprine [Flexeril] 10 mg PO TID PRN 15 Days #30 tab 06/11/24 06/26/24 Rx Furosemide [Lasix] 20 mg PO DAILY #30 tab 06/22/24 06/26/24 Rx amLODIPine [Norvasc] 10 mg PO DAILY #30 tab 06/22/24 06/26/24 Rx lisinopriL [Prinivil] 30 mg PO DAILY #90 tab 06/22/24 06/26/24 Rx Allergies Allergy/AdvReac Type Severity Reaction Status Date / Time codeine Allergy Unknown Verified 06/26/24 11:33 Childhood Penicillins Allergy Rash/Hives Verified 06/26/24 11:33 Sulfa (Sulfonamide Allergy Rash/Hives Verified 06/26/24 11:33 Antibiotics) Physical Exam Vitals: Vital Signs Temp Pulse Pulse Resp BP BP Pulse Ox 06/27/24 08:32 80 06/27/24 08:22 96 06/27/24 08:20 84 06/27/24 08:00 98.5 F 69 18 174/69 96 06/27/24 07:58 18 06/27/24 06:16 98.1 F 75 15 180/75 95 06/27/24 01:21 98.2 F 63 17 184/75 98 06/27/24 00:40 63 19 06/26/24 22:46 97.8 F 63 19 185/75 93 L 06/26/24 22:09 67 18 163/74 96 06/26/24 21:21 70 18 132/59 97 06/26/24 17:09 61 16 141/66 95 Intake and Output 06/26/24 06/27/24 06/27/24 22:59 06:59 14:59 Intake Total 450 Balance 450 Intake: Intake, IV Titration 450 Amount Sodium Chloride 0.9% 1, 450 000 ml @ 75 mls/hr IV . [id number] [facility] Rx#:[id number] Other: Voiding Method External Catheter External Catheter # Voids 1 Weight 68.039 kg patient is awake, comfortable, in no acute distress. Examination of the heart S1 and S2 Examination of the lungs bilateral breath sounds are heard Abdomen is soft nontender Examination of lower extremities shows no significant edema. [employer] exam grossly intact. Results - Lab Results Most recent lab results Calcium 9.4 mg/dL (8.7-10.3) 06/27/24 06:24 Magnesium 1.5 mg/dL (1.6-2.3) L 06/26/24 12:46 06/27/24 06:24 06/27/24 06:24 Assessment and Plan Assessment: 1. Hyponatremia, hypovolemic and improving with normal saline. Hold sodium chloride tabs given the uncontrolled hypertension. 2. Right ureteral calculus 4 mm in size. Status post urological evaluation with no plans for intervention at this time. 3. History of CHF with preserved ejection fraction 4. Hypothyroidism 5. Bipolar disorder maintained on Depakote. Plan: continue with normal saline. Hold sodium chloride tabs given the hypertension and history of CHF. Patient may benefit from tolvaptan. At this time it does not appear to be SIADH and serum sodium has improved with normal saline administration. Thank you for the consultation we will continue to follow the patient with you during her hospitalization
--- NOTE | 2024-06-27 14:08 | P.HPIM ---
History of Present Illness H&P Date: 06/27/24 This is a 69-year-old female with medical history significant for chronic pain, asthma, heart failure, COPD, fibromyalgia, GERD, hypertension, osteoarthritis, pulmonary embolism, hypothyroidism, spinal stenosis and scoliosis with chronic numbness tingling on the left side of her face and neck, MRSA in her knee in March 2024. Patient is also had multiple surgical history including gastric bypass cholecystectomy. Anxiety bipolar depression panic disorder and a chronic smoker. Patient comes back into the hospital secondary to her chronic pain is in her neck with radiation down into her left arm as well as in her left lower back with radiation down into her left leg and her hip. Patient states that she takes Tylenol at home for this and her pain is not controlled. Patient is tearful and asking for additional pain medications. It is noted that she does the natural neurology in the past was most recently seen in January of this year where she was given a prescription for naproxen and felt to be not a candidate for long-term narcotic use secondary to patient's marijuana use. Additionally patient states that she is going to be evaluated by Dr. Badillo in the office on Wednesday for a new consultation for her back and neck pain. Xray of the left hip reveals no evidence of acute process. There is mild hip osteoarthritis. Abdominal pelvis CT reveals a right lower lobe infiltrate decreased in size as compared to the prior study. Suspect mild right hydronephrosis secondary to a 4.3 cm calculus in the right UVJ. A second 4.3 mm calculus in the central right renal collecting system. Blood work reveals an level of 122 on admission, urinalysis negative for any type of infection her blood counts are completely normal. Patient was admitted to the hospital with a consult placed to nephrology and we will also consult urology for further evaluation. Patient was resumed on all same home medications was given D5 with water initially and now has been transition to normal saline at 75/h. She is receiving IV Toradol for pain and we will consult pain management for further recommendations. REVIEW OF SYSTEMS: CONSTITUTIONAL: No fever, no malaise, no fatigue. HEENT: No recent visual problems or hearing problems. Denied any sore throat. CARDIOVASCULAR: No chest pain, orthopnea, PND, no palpitations, no syncope. PULMONARY: No shortness of breath, no cough, no hemoptysis. GASTROINTESTINAL: No diarrhea, no nausea, no vomiting, no abdominal pain. NEUROLOGICAL: No headaches, no weakness, no numbness. HEMATOLOGICAL: Denies any bleeding or petechiae. GENITOURINARY: Denies any burning micturition, frequency, or urgency. MUSCULOSKELETAL/RHEUMATOLOGICAL: Denies any joint pain, swelling, or any muscle pain. ENDOCRINE: Denies any polyuria or polydipsia. The rest of the 14-point review of systems is negative. PHYSICAL EXAMINATION: GENERAL: The patient is alert and oriented x3, not in any acute distress. Well developed, well nourished. HEENT: Pupils are round and equally reacting to light. EOMI. No scleral icterus. No conjunctival pallor. Normocephalic, atraumatic. No pharyngeal erythema. No thyromegaly. CARDIOVASCULAR: S1 and S2 present. No murmurs, rubs, or gallops. PULMONARY: Chest is clear to auscultation, no wheezing or crackles. ABDOMEN: Soft, nontender, nondistended, normoactive bowel sounds. No palpable organomegaly. MUSCULOSKELETAL: No joint swelling or deformity. EXTREMITIES: No cyanosis, clubbing, or pedal edema. NEUROLOGICAL: Gross neurological examination did not reveal any focal deficits. SKIN: No rashes. Assessment and Plan Hyponatremia possible SIADH due to medications. Hypomagnesemia Chronic left neck/back has received pain injections in the past Right nonobstructive renal stone Chronic diastolic dysfunction with no acute exacerbation Chronic hypoxic respiratory failure secondary COPD and recent COVID-19 infection. On 3 L oxygen via nasal cannula Hypertension Anxiety/depression/bipolar disorder and panic disorder Currently everyday smoker Fibromyalgia Osteoarthritis History of PE Hypothyroidism Spinal stenosis and cervical degenerative disc disease History of bariatric surgery/gastric bypass Currently everyday smoker and Marijuana use disorder History of nonsustained V. tach. GI and DVT prophylaxis with heparin subcu and protonix Full Code Plan Nephrology following Continue normal saline and monitor sodium level Pain management consultation Continue IV toradol Urology consultation recommending conservative management as felt stone is nonobstructive and patent is no reporting much pain to the right sided/flank Monitor PVRs and insert indwelling catheter if retaining greater than 400 mls per urology PT/OT Repeat blood work in the AM The impression and plan of care has been dictated by Casandra Jimenez, Nurse Practitioner as directed. Dr. Micky MD I have performed a history and physical examination and medical decision making of this patient, discussed the same with the dictator, and agree with the dictators assessment and plan as written, documented as a scribe. Based on total visit time, I have performed more than 50% of this visit. 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 History of Any Multi-Drug Resistant Organisms: MRSA Date of last positivie culture/infection: 03/2024 MDRO Source:: Knee Past Surgical History: Bariatric Surgery, Section, Cholecystectomy, Hysterectomy, Tonsillectomy Additional Past Surgical History / Comment(s): EGD, colonoscopies, gastric bypass, surgery for deviated septum, left cataract removal (having laser procedure on that eye 11/24/23) Past Anesthesia/Blood Transfusion Reactions: Previous Problems w/ Anesthesia Additional Past Anesthesia/Blood Transfusion Reaction / Comment(s): itching after hysterectomy, some kind of breathing problem after gastric bypass-not sure what happened Past Psychological History: Anxiety, Bipolar, Depression, Panic Disorder Additional Psychological History / Comment(s): . Smoking Status: Current every day smoker Past Alcohol Use History: None Reported Additional Past Alcohol Use History / Comment(s): Pt started smoking in 1986 and quit when she went into [facility] 08/2021, started again and smokes about half a pack a day. Past Drug Use History: None Reported Additional Drug Use History / Comment(s): occassional cannabis use per pt - Past Family History Mother Family Medical History: Congestive Heart Failure (CHF), Hypertension Father History Unknown: Yes Additional Family Medical History / Comment(s): Father at the age of 45 yrs d/t having had rheumatic fever as a child and heart valve disease. Medications and Allergies Home Medications Medication Instructions Recorded Confirmed Type Montelukast [Singulair] 10 mg PO HS 12/17/13 06/26/24 History Levothyroxine Sodium [Synthroid] 150 mcg PO DAILY 03/29/20 06/26/24 History Budesonide/Formoterol Fumarate 2 puff INHALATION RT-BID 06/12/21 06/26/24 History [Symbicort 160-4.5 Mcg Inhaler] Famotidine [Pepcid] 20 mg PO BID 09/03/21 06/26/24 History Tamsulosin [Flomax] 0.4 mg PO DAILY 10/26/21 06/26/24 History Ipratropium-Albuterol Nebulize 3 ml INHALATION RT-QID PRN 11/13/22 06/26/24 History [Duoneb 0.5 mg-3 mg/3 ml Soln] Albuterol Inhaler [Ventolin Hfa 2 puff INHALATION RT-QID PRN #1 11/17/22 06/26/24 Rx Inhaler] each Ibandronate Sodium [Boniva] 150 mg PO Q30D 05/03/23 06/26/24 History clonazePAM [KlonoPIN ODT] 0.25 mg PO HS 12/12/23 06/26/24 History lamoTRIgine [LaMICtal] 100 mg PO BID 03/18/24 06/26/24 History Pyridoxine [Vitamin B-6] 50 mg PO DAILY #30 tab 03/28/24 06/26/24 Rx Metoprolol Tartrate [Lopressor] 25 mg PO BID 05/16/24 06/26/24 History Divalproex ER [Depakote ER] 250 mg PO BID #60 tab 05/26/24 06/26/24 Rx OLANZapine [ZyPREXA] 5 mg PO HS #30 tab 05/26/24 06/26/24 Rx Sodium Chloride Tab 1 gm PO DAILY #30 tab 05/26/24 06/26/24 Rx Venlafaxine HCl ER [Effexor XR] 75 mg PO DAILY #30 cap 05/26/24 06/26/24 Rx Gabapentin 300 mg PO TID 06/01/24 06/26/24 History Acetaminophen Tab [Tylenol] 650 mg PO Q6HR PRN tab 06/02/24 06/26/24 Rx busPIRone HCL [Buspar] 30 mg PO BID 06/09/24 06/26/24 History Cyclobenzaprine [Flexeril] 10 mg PO TID PRN 15 Days #30 tab 06/11/24 06/26/24 Rx Furosemide [Lasix] 20 mg PO DAILY #30 tab 06/22/24 06/26/24 Rx amLODIPine [Norvasc] 10 mg PO DAILY #30 tab 06/22/24 06/26/24 Rx lisinopriL [Prinivil] 30 mg PO DAILY #90 tab 06/22/24 06/26/24 Rx Allergies Allergy/AdvReac Type Severity Reaction Status Date / Time codeine Allergy Unknown Verified 06/26/24 11:33 Childhood Penicillins Allergy Rash/Hives Verified 06/26/24 11:33 Sulfa (Sulfonamide Allergy Rash/Hives Verified 06/26/24 11:33 Antibiotics) Physical Exam Vitals: Vital Signs Temp Pulse Pulse Resp BP BP Pulse Ox 06/27/24 08:32 80 06/27/24 08:22 96 06/27/24 08:20 84 06/27/24 08:00 98.5 F 69 18 174/69 96 06/27/24 07:58 18 06/27/24 06:16 98.1 F 75 15 180/75 95 06/27/24 01:21 98.2 F 63 17 184/75 98 06/27/24 00:40 63 19 06/26/24 22:46 97.8 F 63 19 185/75 93 L 06/26/24 22:09 67 18 163/74 96 06/26/24 21:21 70 18 132/59 97 06/26/24 17:09 61 16 141/66 95 Intake and Output 06/26/24 06/27/24 06/27/24 22:59 06:59 14:59 Intake Total 450 Balance 450 Intake: Intake, IV Titration 450 Amount Sodium Chloride 0.9% 1, 450 000 ml @ 75 mls/hr IV . [id number] [facility] Rx#:[id number] Other: Voiding Method External Catheter External Catheter # Voids 1 Weight 68.039 kg Results CBC & Chem 7: 06/27/24 06:24 06/27/24 06:24 Labs: Abnormal Lab Results - Last 24 Hours (Table) 06/26/24 06/26/2424 Range/Units 12:46 12:46 20:57 RBC (4.10-5.20) X 10*6/uL Sodium 122 L 126 L (137-145) mmol/L Chloride 87 L (98-107) mmol/L Carbon Dioxide 33 H (22-30) mmol/L Creatinine 0.48 L (0.52-1.04) mg/dL Plasma Lactic Acid Joel 0.6 L (0.7-2.0) mmol/L Magnesium 1.5 L (1.6-2.3) mg/dL AST 46 H (14-36) U/L Urine Osmolality (400-1100) mOsm/kg 06/26/24 06/27/24 06/27/24 Range/Units 21:25 06:24 06:24 RBC 4.09 L (4.10-5.20) X 10*6/uL Sodium 128 L (137-145) mmol/L Chloride 90 L (98-107) mmol/L Carbon Dioxide 32.6 H (22-30) mmol/L Creatinine 0.5 L (0.52-1.04) mg/dL Plasma Lactic Acid Joel (0.7-2.0) mmol/L Magnesium (1.6-2.3) mg/dL AST (14-36) U/L Urine Osmolality 258 L (400-1100) mOsm/kg Assessment and Plan Time with Patient: Greater than 30
[2024-06-27] MEDS: HEPARIN SODIUM,PORCINE 5,000 UNIT/ML 1 ML VIAL SQ SCH (14:22)
[2024-06-27] MEDS: TOLVAPTAN 15 MG TABLET PO ONE (18:37)
[2024-06-27] MEDS: IPRATROPIUM-ALBUTEROL 3 ML NEB INHALATION PRN (20:50)
[2024-06-28 00:53] VITALS: RESP 16
[2024-06-28] MEDS: PANTOPRAZOLE 40 MG TABLET PO SCH (05:31)
--- NOTE | 2024-06-28 10:53 | P.PN ---
Subjective Progress Note Date: 06/28/24 No acute overnight event, denies any right-sided flank pain continues to have pain on the left side. Denies any dysuria or gross hematuria Objective - Vital Signs Vital signs: Vital Signs Temp 98.6 F 06/28/24 08:00 Pulse 78 06/28/24 09:22 Resp 16 06/28/24 00:48 BP 151/71 06/28/24 08:00 Pulse Ox 95 06/28/24 09:10 FiO2 Intake & Output 06/27/24 06/28/24 06/28/24 18:59 06:59 18:59 Intake Total 240 250 Output Total 900 Balance -660 250 Intake: Oral 240 250 Output: Urine 900 Other: Voiding Method External Catheter Bedside Commode # Voids 1 1 3 # Bowel Movements 1 - Constitutional General appearance: Present: no acute distress - Labs CBC & Chem 7: 06/27/24 06:24 06/28/24 06:12 Labs: Abnormal Lab Results - Last 24 Hours (Table) 06/27/24 06/28/24 Range/Units 15:50 06:12 Sodium 122 L 128 L (137-145) mmol/L Assessment and Plan Assessment: 69-year-old female history of a 4 mm right-sided distal ureteral stone, she is completely asymptomatic from a stone. Is having left-sided pain, rediscussed with her because of left-sided pain is not from the right sided stone. From my and no further intervention she is stable for discharge -F/U as an outpatient in 2-3 weeks
[2024-06-28] MEDS: clonazePAM 0.5 MG TAB PO SCH (12:59)
--- NOTE | 2024-06-28 13:55 | P.PN ---
Subjective patient is seen for follow-up for hyponatremia. Serum sodium dropped yesterday with normal saline and therefore it was discontinued. Patient received 1 dose of Samsca. Serum sodium increased to 128 today. Patient wants to go home today. Seen by urology with plans to follow-up as outpatient. Objective - Vital Signs Vital signs: Vital Signs Temp 98.6 F 06/28/24 08:00 Pulse 78 06/28/24 09:22 Resp 16 06/28/24 00:48 BP 151/71 06/28/24 08:00 Pulse Ox 95 06/28/24 09:10 FiO2 Intake & Output 06/27/24 06/28/24 06/28/24 18:59 06:59 18:59 Intake Total 240 250 Output Total 900 Balance -660 250 Intake: Oral 240 250 Output: Urine 900 Other: Voiding Method External Catheter Bedside Commode # Voids 1 1 3 # Bowel Movements 1 - Exam patient is awake, comfortable, in no acute distress. Examination of the heart S1 and S2 Examination of the lungs bilateral breath sounds are heard Abdomen is soft nontender Examination of lower extremities shows no significant edema. [employer] exam grossly intact. - Labs CBC & Chem 7: 06/27/24 06:24 06/28/24 06:12 Labs: Abnormal Lab Results - Last 24 Hours (Table) 06/27/24 06/28/24 Range/Units 15:50 06:12 Sodium 122 L 128 L (137-145) mmol/L Assessment and Plan Assessment: 1. Hyponatremia, hypovolemic initially with improvement with normal saline. Serum sodium dropped yesterday to 122 and therefore saline was discontinued. Status post 1 dose of Samsca. Sodium is 128 today. Hold sodium chloride tabs given the uncontrolled hypertension. There is component of SIADH which is evident once the hypovolemia was resolved. 2. Right ureteral calculus 4 mm in size. Status post urological evaluation with no plans for intervention at this time. 3. History of CHF with preserved ejection fraction 4. Hypothyroidism 5. Bipolar disorder maintained on Depakote. Plan: continue off of IV fluids. Patient will need fluid restriction post discharge. She will also benefit from Samsca 1-2 times a week post discharge. I would hold sodium chloride tabs given the uncontrolled hypertension and volume overload.
[2024-06-28 14:33] VITALS: BP 146/74; PULSE 75; TEMP 98.8
--- NOTE | 2024-06-28 15:30 | P.PAINPG ---
Objective - Vital Signs Vital signs: Vital Signs Temp 98.8 F 06/28/24 14:00 Pulse 75 06/28/24 14:00 Resp 16 06/28/24 14:00 BP 146/74 06/28/24 14:00 Pulse Ox 95 06/28/24 14:00 FiO2 Intake & Output 06/27/24 06/28/24 06/28/24 18:59 06:59 18:59 Intake Total 240 370 Output Total 900 Balance -660 370 Intake: Oral 240 370 Output: Urine 900 Other: Voiding Method External Catheter Bedside Commode # Voids 1 1 3 # Bowel Movements 1 - Labs CBC & Chem 7: 06/27/24 06:24 06/28/24 06:12 Labs: Abnormal Lab Results - Last 24 Hours (Table) 06/27/24 06/28/24 Range/Units 15:50 06:12 Sodium 122 L 128 L (137-145) mmol/L PQRS Measure Charge Sheet Comment: HISTORY OF PRESENT ILLNESS: A 68 yr old inpatient female as a referral from Dr Weeks presents today w severe and chronic LBP > 5 yrs secondary to radiculopathy, spondylosis and facet arthropathy for evaluation. Pt states pain level is provoked at 8 /10 in intensity, constant, localized in the lumbar spine, predominantly axial, sharp in character w occasional shooting pain towards the back of the LEs. Pain is provoked by over activity. She would like a short course of medications. Pain is alleviated by PT x 6 wks which ended in Oct 2023, physician guided home exercises/ stretches 5 times weekly since Sep 2023, medications (Wassaic, Tyl, Ibu), BioFreeze topical, hot showers, repositioning and rest . PMH: OA, Asthma, CHF, COPD, NIDDM II, Fibromyalgia, GERD, Hypertension, PE, Hypothyroid Disorder, IBS, MDD/ Anxiety/ Bipolar/ Panic Disorder PSH: Gastric Bypass, Section, Cholecystectomy, Hysterectomy, Tonsillectomy, EGD, Colonoscopies, Deviated Septum Surgery SH: Daily tobacco use, No ETOH use, Cannabis use FH: Mo- CHF, HTN. Fa- at age 47 due Rheumatic Heart Disease All: See list Meds: See list REVIEW OF ORGAN SYSTEMS: CONSTITUTIONAL: No fevers or chills. No recent weight loss. NEUROLOGICAL: + numbness and tingling along the distal extremities. No seizure disorders or headaches. MUSCULOSKELETAL: + pain PSYCHIATRIC: Denies current depression or suicidal thoughts. Physical Examinations : Constitutional : Cooperative , not in acute distress . Neurologic : Cranial nerve II to XII intact. No focal neurological deficits. Psychiatric : alert & oriented x 3. Matching mood & appropriate affect. Judgment & insight intact. Musculoskeletal : Cervical Spine Motor strength in the deltoid and biceps: Normal right side. Normal Left side Motor strength biceps and the wrist extensors: Normal right side . Normal left side Motor strength in the triceps muscle: Normal right side. Normal left side Deep tendon reflexes: Normal at the biceps. Normal at Brachioradialis. Normal at triceps Vertebral body tenderness to deep palpation over Cervical facet loading test: positive bilaterally Spurling test: positive bilaterally Neck distraction test: positive bilaterally Dallas sign: positive bilaterally Lumbar spine Motor strength lower extremities ,thigh and legs 5/5 Right side , 5/5 Left side Deep tendon reflexes : Normal Knee Jerk. Normal Ankle Jerk Vertebral body tenderness over L5 Cuevas Test positive Lumbar facet Loading Test: positive Right / positive Left Range of motion of the lumbar spine Flexion 30 degrees, extension 10 degrees Straight Leg Raise test: Left/ Right positive at <35 degrees Eladio test: positive right / positive left. DDD, spondylosis and facet arthropathy without myelopathy Severe tenderness over the Sacroiliac joint on the Right / Left sides Gaenslen test: positive bilaterally Seated flexion test: positive bilaterally. Sacral spine : Severe tenderness over the Sacroiliac joint: right side / left side Range of motion: Flexion of the lumbar spine <60 degrees Range of motion: Extension of the lumbar spine <20 degrees Gaenslen's Test positive Eladio test: positive right side / left side Thigh Thrust Test Sacral Thrust Test Imaging: MRI non contrast of the lumbar spine from 06/23/2023 reviewed Assessment/ Plan : Lumbar stenosis Recommendation of intervention and temporary medication management. Pt is being discharged today. Will fill Wassaic 5/325mg #15 NR. Use, side effects, adverse reactions, safe storage discussed. Pt admitted she is not a narcotic medication candidate due to recent cannabis use. Will discontinue cannabis while on short course of Wassaic and may follow up at our clinic for interventional procedures. All questions answered. I have spent greater than 30 minutes on patient care today. Dr Moeller was available by phone for the evaluation of this patient. The time was used to review the medical records including relevant urine studies and Prescription history (MAPs), review of the available imaging, evaluation and examination of the patient, coordination of care with the medical staff and if applicable referring physicians, as well as creation of the medical record - Pain Location Neck Non-Pharmacological Interventions: Distraction, Position/Reposition Pharmacological Interventions: Medication Generalized Non-Pharmacological Interventions: Darkened Room, Distraction, Position/Reposition Pharmacological Interventions: Discuss Pain Med Options PQRS Narrative: Smoking Status Current every day smoker Blood Pressure [Left Arm] 146/74 Blood Pressure 163/74 Pain Intensity [Generalized] 5 Pain Intensity [Neck] 0 Pain Intensity 7 Pain Scale Used Non Verbal Pain Indicator Scale Used Non Verbal Pain Indicator Hx Alcohol Use (MH) No Home Medications: Ambulatory Orders Montelukast [Singulair] 10 mg PO HS 12/17/13 Levothyroxine Sodium [Synthroid] 150 mcg PO DAILY 03/29/20 Budesonide/Formoterol Fumarate [Symbicort 160-4.5 Mcg Inhaler] 2 puff INHALATION RT-BID 06/12/21 Famotidine [Pepcid] 20 mg PO BID 09/03/21 Tamsulosin [Flomax] 0.4 mg PO DAILY 10/26/21 Ipratropium-Albuterol Nebulize [Duoneb 0.5 mg-3 mg/3 ml Soln] 3 ml INHALATION RT-QID PRN 11/13/22 Albuterol Inhaler [Ventolin Hfa Inhaler] 2 puff INHALATION RT-QID PRN #1 each 11/17/22 Ibandronate Sodium [Boniva] 150 mg PO Q30D 05/03/23 clonazePAM [KlonoPIN ODT] 0.25 mg PO HS 12/12/23 lamoTRIgine [LaMICtal] 100 mg PO BID 03/18/24 Pyridoxine [Vitamin B-6] 50 mg PO DAILY #30 tab 03/28/24 Metoprolol Tartrate [Lopressor] 25 mg PO BID 05/16/24 Divalproex ER [Depakote ER] 250 mg PO BID #60 tab 05/26/24 OLANZapine [ZyPREXA] 5 mg PO HS #30 tab 05/26/24 Venlafaxine HCl ER [Effexor XR] 75 mg PO DAILY #30 cap 05/26/24 Gabapentin 300 mg PO TID 06/01/24 Acetaminophen Tab [Tylenol] 650 mg PO Q6HR PRN tab 06/02/24 busPIRone HCL [Buspar] 30 mg PO BID 06/09/24 Cyclobenzaprine [Flexeril] 10 mg PO TID PRN 15 Days #30 tab 06/11/24 Furosemide [Lasix] 20 mg PO DAILY #30 tab 06/22/24 amLODIPine [Norvasc] 10 mg PO DAILY #30 tab 06/22/24 lisinopriL [Prinivil] 30 mg PO DAILY #90 tab 06/22/24 HYDROcodone/APAP 5-325MG [Wassaic 5-325] 1 tab PO Q4HR PRN 3 Days #15 tab 06/28/24 Tolvaptan [Samsca] 7.5 mg PO WESA 8 Days #4 tablet 06/28/24 Controlled Substance Measures - Controlled Substance Measures Is patient prescribed a controlled substance at discharge?: Yes When asked, does pt state using other controlled substances?: No If prescribed controlled substance>3 days was MAPS reviewed?: Prescribed <3 Days
--- NOTE | 2024-06-30 17:53 | P.DS ---
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 Hypomagnesemia Chronic left neck/back has received pain injections in the past Right nonobstructive renal stone Chronic diastolic dysfunction with no acute exacerbation Chronic hypoxic respiratory failure secondary COPD and recent COVID-19 infection. On 3 L oxygen via nasal cannula Hypertension Anxiety/depression/bipolar disorder and panic disorder Currently everyday smoker Fibromyalgia Osteoarthritis History of PE Hypothyroidism Spinal stenosis and cervical degenerative disc disease History of bariatric surgery/gastric bypass Currently everyday smoker and Marijuana use disorder History of nonsustained V. tach. Discharge Disposition Patient is stable for discharge home. Patient to continue all same home medications. Patient to continue on samsca twice a week for the hyponatremia additionally was given 3 day script for norco by pain management and patient to follow up in the clinic for continued management. Patient to keep her same appt with Dr Alex on Wednesday. She is advised to follow up back with her psychiatrist regarding an increase in her anxiety medications. Hospital Course This is a 69-year-old female with medical history significant for chronic pain, asthma, heart failure, COPD, fibromyalgia, GERD, hypertension, osteoarthritis, pulmonary embolism, hypothyroidism, spinal stenosis and scoliosis with chronic numbness tingling on the left side of her face and neck, MRSA in her knee in [place]. Patient is also had multiple surgical history including gastric bypass cholecystectomy. Anxiety bipolar depression panic disorder and a chronic smoker. Patient comes back into the hospital secondary to her chronic pain is in her neck with radiation down into her left arm as well as in her left lower back with radiation down into her left leg and her hip. Patient states that she takes Tylenol at home for this and her pain is not controlled. Patient is tearful and asking for additional pain medications. It is noted was evaluated by pain management in the past was most recently seen in January of this year where she was given a prescription for naproxen and felt to be not a candidate for long-term narcotic use secondary to patient's marijuana use. Additionally patient states that she is going to be evaluated by Dr. Alex in the office on Wednesday for a new consultation for her back and neck pain. Xray of the left hip reveals no evidence of acute process. There is mild hip osteoarthritis. Abdominal pelvis CT reveals a right lower lobe infiltrate decreased in size as compared to the prior study. Suspect mild right hydronephrosis secondary to a 4.3 cm calculus in the right UVJ. A second 4.3 mm calculus in the central right renal collecting system. Blood work reveals an level of 122 on admission, urinalysis negative for any type of infection her blood counts are completely normal. Patient was admitted to the hospital with a consult placed to nephrology and urology. Patient was resumed on all same home medications was given D5 with water initially and now has been transition to normal saline at 75/h. Was given a dose of scamsca and sodium has improved up to 128 from 122. She is receiving IV Toradol for pain as her main complaint continues to be her chronic neck and lower back pain. She has been evaluated by Dr Montes in the past. Pain management was consulted and discussed with patient regarding narcotic use with marijuana; and patient will stop using marijuana and norco script was provided by pain management. Nephrology recommending to continue samsca twice a week on discharge to keep the sodium level up. Urology saw the patient for the right renal stone and it was felt to be nonobstructive. Patient is asymptomatic and will follow up with urology in 2 to 3 weeks in the office. Patient cleared for Discharge home. Please see medication reconciliation for a list of current medications. Thank you for allowing us to participate in the care of this patient. The impression and plan of care has been dictated by Nurse Rosalind Joseph as directed. Dr. Micky MD I have performed a history and physical examination and medical decision making of this patient, discussed the same with the dictator, and agree with the dictat ors assessment and plan as written, documented as a scribe. Based on total visit time, I have performed more than 50% of this visit. Patient Condition at Discharge: Fair Plan - Discharge Summary Discharge Rx Participant: No New Discharge Prescriptions: New HYDROcodone/APAP 5-325MG [[place] 5-325] 1 tab PO Q4HR PRN 3 Days #15 tab PRN Reason: Pain Tolvaptan [Samsca] 7.5 mg PO WESA 8 Days #4 tablet Continue Montelukast [Singulair] 10 mg PO HS Levothyroxine Sodium [Synthroid] 150 mcg PO DAILY Ipratropium-Albuterol Nebulize [Duoneb 0.5 mg-3 mg/3 ml Soln] 3 ml INHALATION RT-QID PRN PRN Reason: Shortness Of Breath clonazePAM [KlonoPIN ODT] 0.25 mg PO HS lamoTRIgine [LaMICtal] 100 mg PO BID Pyridoxine [Vitamin B-6] 50 mg PO DAILY #30 tab OLANZapine [ZyPREXA] 5 mg PO HS #30 tab Acetaminophen Tab [Tylenol] 650 mg PO Q6HR PRN tab PRN Reason: Mild Pain Or Fever > 100.5 busPIRone HCL [Buspar] 30 mg PO BID amLODIPine [Norvasc] 10 mg PO DAILY #30 tab lisinopriL [Prinivil] 30 mg PO DAILY #90 tab Budesonide/Formoterol Fumarate [Symbicort 160-4.5 Mcg Inhaler] 2 puff INHALATION RT-BID Famotidine [Pepcid] 20 mg PO BID Tamsulosin [Flomax] 0.4 mg PO DAILY Albuterol Inhaler [Ventolin Hfa Inhaler] 2 puff INHALATION RT-QID PRN #1 each PRN Reason: Shortness Of Breath Ibandronate Sodium [Boniva] 150 mg PO Q30D Metoprolol Tartrate [Lopressor] 25 mg PO BID Divalproex ER [Depakote ER] 250 mg PO BID #60 tab Venlafaxine HCl ER [Effexor XR] 75 mg PO DAILY #30 cap Gabapentin 300 mg PO TID Cyclobenzaprine [Flexeril] 10 mg PO TID PRN 15 Days #30 tab PRN Reason: Muscle Spasm Furosemide [Lasix] 20 mg PO DAILY #30 tab Discontinued Sodium Chloride Tab 1 gm PO DAILY #30 tab Discharge Medication List Montelukast [Singulair] 10 mg PO HS 12/17/13 [History] Levothyroxine Sodium [Synthroid] 150 mcg PO DAILY 03/29/20 [History] Budesonide/Formoterol Fumarate [Symbicort 160-4.5 Mcg Inhaler] 2 puff INHALATION RT-BID 06/12/21 [History] Famotidine [Pepcid] 20 mg PO BID 09/03/21 [History] Tamsulosin [Flomax] 0.4 mg PO DAILY 10/26/21 [History] Ipratropium-Albuterol Nebulize [Duoneb 0.5 mg-3 mg/3 ml Soln] 3 ml INHALATION RT-QID PRN 11/13/22 [History] Albuterol Inhaler [Ventolin Hfa Inhaler] 2 puff INHALATION RT-QID PRN #1 each 11/17/22 [Rx] Ibandronate Sodium [Boniva] 150 mg PO Q30D 05/03/23 [History] clonazePAM [KlonoPIN ODT] 0.25 mg PO HS 12/12/23 [History] lamoTRIgine [LaMICtal] 100 mg PO BID 03/18/24 [History] Pyridoxine [Vitamin B-6] 50 mg PO DAILY #30 tab 03/28/24 [Rx] Metoprolol Tartrate [Lopressor] 25 mg PO BID 05/16/24 [History] Divalproex ER [Depakote ER] 250 mg PO BID #60 tab 05/26/24 [Rx] OLANZapine [ZyPREXA] 5 mg PO HS #30 tab 05/26/24 [Rx] Venlafaxine HCl ER [Effexor XR] 75 mg PO DAILY #30 cap 05/26/24 [Rx] Gabapentin 300 mg PO TID 06/01/24 [History] Acetaminophen Tab [Tylenol] 650 mg PO Q6HR PRN tab 06/02/24 [Rx] busPIRone HCL [Buspar] 30 mg PO BID 06/09/24 [History] Cyclobenzaprine [Flexeril] 10 mg PO TID PRN 15 Days #30 tab 06/11/24 [Rx] Furosemide [Lasix] 20 mg PO DAILY #30 tab 06/22/24 [Rx] amLODIPine [Norvasc] 10 mg PO DAILY #30 tab 06/22/24 [Rx] lisinopriL [Prinivil] 30 mg PO DAILY #90 tab 06/22/24 [Rx] HYDROcodone/APAP 5-325MG [[place] 5-325] 1 tab PO Q4HR PRN 3 Days #15 tab 06/28/24 [Rx] Tolvaptan [Samsca] 7.5 mg PO WESA 8 Days #4 tablet 06/28/24 [Rx] Follow up Appointment(s)/Referral(s): Andrzej Wheeler MD [Primary Care Provider] - 06/30/24 1:00 pm Geno Olea MD [STAFF PHYSICIAN] - 1 Week (office not answering Please call to schedule appointment ) Cristhian Moeller MD [STAFF PHYSICIAN] - 07/26/24 10:15 am (with Ilana at [facility] 3rd Floor) [facility], [NON-STAFF] - Mark Alex DO [Doctor of Osteopathic Medicine] - 06/30/24 10:10 am (with Rich) Ambulatory/Diagnostic Orders: Basic Metabolic Panel [LAB.AMB] Time Frame: 3 Days, Location: None Selected Magnesium [LAB.AMB] Location: None Selected Activity/Diet/Wound Care/Special Instructions: Continue 1500 mL fluid restriction on discharge. This is per every 24 hours. Continue oral samsca 7.5 mg (1/2 tablet) every wednesday and Wednesday. Start this wednesday. This medication is to keep your sodium level in range. Follow up with nephrology in 1 week Repeat BMP and magnesium level in 2 to 3 days Keep your Appointment with Dr Alex on Wednesday. Follow up with pain management in the office Follow up with your psychiatrist on discharge and discuss your worsening anxiety. Discharge Disposition: HOME SELF-CARE
== END 2024-06-28 16:14 | disposition home or self-care (01) | DRG 644 ==
LOC: EC 11:22 → 5NMEDONC 16:04 → 4SSUR 20:57
PROVIDERS: ADMIT Internal Medicine; ATTEND Internal Medicine
DX: E22.2 Syndrome of inappropriate secretion of antidiuretic hormone (principal); F31.30 Bipolar disorder, current episode depressed, mild or moderate severity, unspecified; N13.2 Hydronephrosis with renal and ureteral calculous obstruction; I50.32 Chronic diastolic (congestive) heart failure; I47.20 Ventricular tachycardia, unspecified; E83.42 Hypomagnesemia; F41.0 Panic disorder [episodic paroxysmal anxiety]; I11.0 Hypertensive heart disease with heart failure; M79.7 Fibromyalgia; F17.210 Nicotine dependence, cigarettes, uncomplicated; E03.9 Hypothyroidism, unspecified; Z98.84 Bariatric surgery status; F12.10 Cannabis abuse, uncomplicated; E86.1 Hypovolemia; E11.9 Type 2 diabetes mellitus without complications; G89.29 Other chronic pain; K58.9 Irritable bowel syndrome, unspecified; M48.02 Spinal stenosis, cervical region; J44.9 Chronic obstructive pulmonary disease, unspecified; M16.12 Unilateral primary osteoarthritis, left hip; M41.9 Scoliosis, unspecified; M50.30 Other cervical disc degeneration, unspecified cervical region; T50.3X5A Adverse effect of electrolytic, caloric and water-balance agents, initial encounter; Z87.01 Personal history of pneumonia (recurrent); Z86.711 Personal history of pulmonary embolism; Z87.19 Personal history of other diseases of the digestive system; Z79.51 Long term (current) use of inhaled steroids; Z79.84 Long term (current) use of oral hypoglycemic drugs; Z79.890 Hormone replacement therapy; Z79.899 Other long term (current) drug therapy; Z82.49 Family history of ischemic heart disease and other diseases of the circulatory system; Z87.442 Personal history of urinary calculi; Z90.710 Acquired absence of both cervix and uterus; Z98.42 Cataract extraction status, left eye; Z90.49 Acquired absence of other specified parts of digestive tract; Z88.5 Allergy status to narcotic agent; Z88.0 Allergy status to penicillin; Z88.2 Allergy status to sulfonamides; Z86.14 Personal history of Methicillin resistant Staphylococcus aureus infection; Z86.19 Personal history of other infectious and parasitic diseases; X58.XXXA Exposure to other specified factors, initial encounter; Z86.0100 Personal history of colon polyps, unspecified; Z87.440 Personal history of urinary (tract) infections
CPT/HCPCS: 36415; 73502; 74177; 80048; 80053; 80164; 80175; 81003; 83605; 83735; 83930; 83935; 84295; 84300; 85025; 93005; 94640; 94760; 96361; 96374; 96375; 96376; 99285

== ENCOUNTER → 2024-07-26 | Outpatient (CLI) | payer MEDICARE ==
[2024-07-26 10:46] VITALS: BP 106/58; PULSE 63; RESP 16; TEMP 97.5
--- NOTE | 2024-07-26 15:19 | P.PAINPG ---
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 Pt states pain level is provoked at 8 /10 in intensity, constant, localized in the lumbar spine, predominantly axial, sharp in character w occasional shooting pain towards the back of the LEs. Pain is provoked by over activity. Pain is alleviated by PT x 3 wks which she is currently in, physician guided home exercises/ stretches 5 times weekly since Sep 2023, medications , topical, THC, hot showers, repositioning and rest . Interventional procedures include Medications include [place], Tyl, Flexeril, Ibu, BioFreeze, Cannabis use REVIEW OF ORGAN SYSTEMS: CONSTITUTIONAL: No fevers or chills. No recent weight loss. NEUROLOGICAL: + numbness and tingling along the distal extremities. No seizure disorders or headaches. MUSCULOSKELETAL: + pain PSYCHIATRIC: Denies current depression or suicidal though ts. Physical Examinations : Constitutional : Cooperative , not in acute distress . Neurologic : Cranial nerve II to XII intact. No focal neurological deficits. Psychiatric : alert & oriented x 3. Matching mood & appropriate affect. Judgment & insight intact. Musculoskeletal : Cervical Spine Motor strength in the deltoid and biceps: Normal right side. Normal Left side Motor strength biceps and the wrist extensors: Normal right side . Normal left side Motor strength in the triceps muscle: Normal right side. Normal left side Deep tendon reflexes: Normal at the biceps. Normal at Brachioradialis. Normal at triceps Vertebral body tenderness to deep palpation over Cervical facet loading test: positive bilaterally Spurling test: positive bilaterally Neck distraction test: positive bilaterally [place] sign: positive bilaterally Lumbar spine Motor strength lower extremities ,thigh and legs 5/5 Right side , 5/5 Left side Deep tendon reflexes : Normal Knee Jerk. Normal Ankle Jerk Vertebral body tenderness over L5 Cuevas Test positive Lumbar facet Loading Test: positive Right / positive Left Range of motion of the lumbar spine Flexion 30 degrees, extension 10 degrees Straight Leg Raise test: Left/ Right positive at <35 degrees Eladio test: positive right / positive left. Severe tenderness over the Sacroiliac joint on the Right / Left sides Gaenslen test: positive bilaterally Seated flexion test: positive bilaterally. Sacral spine : Severe tenderness over the Sacroiliac joint: right side / left side Range of motion: Flexion of the lumbar spine <60 degrees Range of motion: Extension of the lumbar spine <20 degrees Gaenslen's Test positive Eladio test: positive right side / left side Thigh Thrust Test Sacral Thrust Test Imaging: MRI non contrast of the lumbar spine from 06/23/2023 reviewed Assessment/ Plan : Lumbar stenosis, lumbar radiculopathy Recommendation of MANDO L5-S1 #1. Risks, benefits of procedure discussed and patient verbalized understanding. Protocol for discontinuation/continuation of medication surrounding procedure discussed. Pt admitted she is not a narcotic medication candidate due to cannabis use. All questions answered. I have spent greater than 30 minutes on patient care today. Dr Moeller was available by phone for the evaluation of this patient. The time was used to review the medical records including relevant urine studies and Prescription history (MAPs), review of the available imaging, evaluation and examination of the patient, coordination of care with the medical staff and if applicable referring physicians, as well as creation of the medical record - Pain Location Bilateral Lower Back Non-Pharmacological Interventions: Heat, Ice, Inactivity, Physical Therapy, Position/Reposition, Sitting Pharmacological Interventions: Block, Epidural, PRN Medication, Topical Medication PQRS Narrative: Smoking Status Current every day smoker Hx Alcohol Use (MH) No Home Medications: Ambulatory Orders Montelukast [Singulair] 10 mg PO HS 12/17/13 Levothyroxine Sodium [Synthroid] 150 mcg PO DAILY 03/29/20 Budesonide/Formoterol Fumarate [Symbicort 160-4.5 Mcg Inhaler] 2 puff INHALATION RT-BID 06/12/21 Famotidine [Pepcid] 20 mg PO BID 09/03/21 Tamsulosin [Flomax] 0.4 mg PO DAILY 10/26/21 Ipratropium-Albuterol Nebulize [Duoneb 0.5 mg-3 mg/3 ml Soln] 3 ml INHALATION RT-QID PRN 11/13/22 Albuterol Inhaler [Ventolin Hfa Inhaler] 2 puff INHALATION RT-QID PRN #1 each 11/17/22 Ibandronate Sodium [Boniva] 150 mg PO Q30D 05/03/23 clonazePAM [KlonoPIN ODT] 0.25 mg PO HS 12/12/23 lamoTRIgine [LaMICtal] 100 mg PO BID 03/18/24 Pyridoxine [Vitamin B-6] 50 mg PO DAILY #30 tab 03/28/24 Metoprolol Tartrate [Lopressor] 25 mg PO BID 05/16/24 Divalproex ER [Depakote ER] 250 mg PO BID #60 tab 05/26/24 OLANZapine [ZyPREXA] 5 mg PO HS #30 tab 05/26/24 Venlafaxine HCl ER [Effexor XR] 75 mg PO DAILY #30 cap 05/26/24 Gabapentin 300 mg PO TID 06/01/24 Acetaminophen Tab [Tylenol] 650 mg PO Q6HR PRN tab 06/02/24 busPIRone HCL [Buspar] 30 mg PO BID 06/09/24 Cyclobenzaprine [Flexeril] 10 mg PO TID PRN 15 Days #30 tab 06/11/24 Furosemide [Lasix] 20 mg PO DAILY #30 tab 06/22/24 amLODIPine [Norvasc] 10 mg PO DAILY #30 tab 06/22/24 lisinopriL [Prinivil] 30 mg PO DAILY #90 tab 06/22/24 HYDROcodone/APAP 5-325MG [[place] 5-325] 1 tab PO Q4HR PRN 3 Days #15 tab 06/28/24 Tolvaptan [Samsca] 7.5 mg PO WESA 8 Days #4 tablet 06/28/24 Controlled Substance Measures - Controlled Substance Measures Is patient prescribed a controlled substance at discharge?: No
== END ==
LOC: PNWHC3 10:16
PROVIDERS: ATTEND Specialist
DX: M48.061 Spinal stenosis, lumbar region without neurogenic claudication (principal); M54.16 Radiculopathy, lumbar region; G89.29 Other chronic pain; F17.200 Nicotine dependence, unspecified, uncomplicated; Z88.2 Allergy status to sulfonamides; Z88.0 Allergy status to penicillin; Z88.5 Allergy status to narcotic agent
CPT/HCPCS: 99211

== ENCOUNTER 2024-09-13 08:48 | Emergency (ER) | payer MEDICARE ==
--- NOTE | 2024-09-13 09:13 | ED ---
Weakness HPI - General Chief complaint: Extremity Problem,Nontraumatic Stated complaint: all over body cramps Time Seen by Provider: 09/13/24 08:57 Source: patient, RN notes reviewed, old records reviewed Mode of arrival: wheelchair Limitations: no limitations - History of Present Illness Initial comments: This is a 69-year-old female to the ER for evaluation patient known to our facility, patient presents today for body aches pains left arm pain back pain history of chronic back pain. Patient is having some shortness of breath is on 3 L oxygen at all times and is currently on 3 L here in the ER. Patient states she was recently treated for urinary tract infection last day of antibiotics is today. She is concern for sepsis. She feels feverish with sweating, no chest pain MD Complaint: generalized weakness -: days(s) Location: generalized Severity: moderate Quality: tingling, aching Consistency: constant Improves with: none Context: recent illness, history of similar Associated Symptoms: fever/chills - Related Data Home Medications Medication Instructions Recorded Confirmed Montelukast [Singulair] 10 mg PO HS 12/17/13 07/26/24 Levothyroxine Sodium [Synthroid] 150 mcg PO DAILY 03/29/20 07/26/24 Budesonide/Formoterol Fumarate 2 puff INHALATION RT-BID 06/12/21 07/26/24 [Symbicort 160-4.5 Mcg Inhaler] Famotidine [Pepcid] 20 mg PO BID 09/03/21 07/26/24 Tamsulosin [Flomax] 0.4 mg PO DAILY 10/26/21 07/26/24 Ipratropium-Albuterol Nebulize 3 ml INHALATION RT-QID PRN 11/13/22 07/26/24 [Duoneb 0.5 mg-3 mg/3 ml Soln] Ibandronate Sodium [Boniva] 150 mg PO Q30D 05/03/23 07/26/24 clonazePAM [KlonoPIN ODT] 0.25 mg PO HS 12/12/23 07/26/24 lamoTRIgine [LaMICtal] 100 mg PO BID 03/18/24 07/26/24 Metoprolol Tartrate [Lopressor] 25 mg PO BID 05/16/24 07/26/24 Gabapentin 300 mg PO TID 06/01/24 07/26/24 busPIRone HCL [Buspar] 30 mg PO BID 06/09/24 07/26/24 Previous Rx's Medication Instructions Recorded Albuterol Inhaler [Ventolin Hfa 2 puff INHALATION RT-QID PRN #1 11/17/22 Inhaler] each Pyridoxine [Vitamin B-6] 50 mg PO DAILY #30 tab 03/28/24 Divalproex ER [Depakote ER] 250 mg PO BID #60 tab 05/26/24 OLANZapine [ZyPREXA] 5 mg PO HS #30 tab 05/26/24 Venlafaxine HCl ER [Effexor XR] 75 mg PO DAILY #30 cap 05/26/24 Acetaminophen Tab [Tylenol] 650 mg PO Q6HR PRN tab 06/02/24 Cyclobenzaprine [Flexeril] 10 mg PO TID PRN 15 Days #30 tab 06/11/24 Furosemide [Lasix] 20 mg PO DAILY #30 tab 06/22/24 amLODIPine [Norvasc] 10 mg PO DAILY #30 tab 06/22/24 lisinopriL [Prinivil] 30 mg PO DAILY #90 tab 06/22/24 HYDROcodone/APAP 5-325MG [[place] 1 tab PO Q4HR PRN 3 Days #15 tab 06/28/24 5-325] Tolvaptan [Samsca] 7.5 mg PO WESA 8 Days #4 tablet 06/28/24 Allergies Allergy/AdvReac Type Severity Reaction Status Date / Time codeine Allergy Unknown Verified 09/13/24 08:55 Childhood Penicillins Allergy Rash/Hives Verified 09/13/24 08:55 Sulfa (Sulfonamide Allergy Rash/Hives Verified 09/13/24 08:55 Antibiotics) Review of Systems ROS Statement: Those systems with pertinent positive or pertinent negative responses have been documented in the HPI. ROS Other: All systems not noted in ROS Statement are negative. 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 History of Any Multi-Drug Resistant Organisms: MRSA Date of last positivie culture/infection: 03/2024 MDRO Source:: Knee Past Surgical History: Bariatric Surgery, Section, Cholecystectomy, Hysterectomy, Tonsillectomy Additional Past Surgical History / Comment(s): EGD, colonoscopies, gastric bypass, surgery for deviated septum, left cataract removal (having laser procedure on that eye 11/24/23) Past Anesthesia/Blood Transfusion Reactions: Previous Problems w/ Anesthesia Additional Past Anesthesia/Blood Transfusion Reaction / Comment(s): itching after hysterectomy, some kind of breathing problem after gastric bypass-not sure what happened Past Psychological History: Anxiety, Bipolar, Depression, Panic Disorder Smoking Status: Current every day smoker Past Alcohol Use History: None Reported Past Drug Use History: Marijuana - Past Family History Mother Family Medical History: Congestive Heart Failure (CHF), Hypertension Father History Unknown: Yes Additional Family Medical History / Comment(s): Father at the age of 45 yrs d/t having had rheumatic fever as a child and heart valve disease. General Exam Limitations: no limitations General appearance: alert, in no apparent distress Head exam: Present: atraumatic, normocephalic, normal inspection Eye exam: Present: normal appearance, PERRL, EOMI. Absent: scleral icterus, conjunctival injection, periorbital swelling ENT exam: Present: normal exam, mucous membranes moist Neck exam: Present: normal inspection. Absent: tenderness, meningismus, lymphadenopathy Respiratory exam: Present: normal lung sounds bilaterally. Absent: respiratory distress, wheezes, rales, rhonchi, stridor Cardiovascular Exam: Present: regular rate, normal rhythm, normal heart sounds. Absent: systolic murmur, diastolic murmur, rubs, gallop, clicks GI/Abdominal exam: Present: soft, normal bowel sounds. Absent: distended, tenderness, guarding, rebound, rigid Extremities exam: Present: normal inspection, full ROM, normal capillary refill. Absent: tenderness, pedal edema, joint swelling, calf tenderness Back exam: Present: normal inspection Neurological exam: Present: alert, oriented X3, CN II-XII intact Psychiatric exam: Present: normal affect, normal mood Skin exam: Present: warm, dry, intact, normal color. Absent: rash Course Vital Signs 09/13/24 09/13/24 09/13/24 08:50 10:24 11:23 Temperature 99.1 F 97.9 F Pulse Rate 68 66 60 Respiratory 20 18 16 Rate Blood Pressure 152/79 128/57 102/55 O2 Sat by Pulse 91 L 94 L 95 Oximetry - Reevaluation(s) Reevaluation #1: 09/13/24 09:25 Medical records reviewed Reevaluation #2: Patient symptoms continue to improve here in the emergency department Reevaluation #3: Patient informed of results questions answered Reevaluation #4: Was pt. sent in by a medical professional or institution ([facility], [facility], urgent care, hospital, or fci...) When possible be specific @ -no Did you speak to anyone other than the patient for history (EMS, parent, family, police, friend...)? What history was obtained from this source @ -no Did you review nursing and triage notes (agree or disagree)? Why? @ -agree Are old charts reviewed (outside hosp., previous admission, EMS record, old EKG, old radiological studies, urgent care reports/EKG's, fci records)? Report findings @ -yes Differential Diagnosis (chest pain, altered mental status, abdominal pain women, abdominal pain men, vaginal bleeding, weakness, fever, dyspnea, syncope, headache, dizziness, GI bleed, back pain, seizure, CVA, palpatations, mental health, musculoskeletal)? @ -prior EKG interpreted by me (3pts min.). @ -yes X-rays interpreted by me (1pt min.). @ -yes negative for acute disease CT interpreted by me (1pt min.). @ -no U/S interpreted by me (1pt. min.). @ -no What testing was considered but not performed or refused? (CT, X-rays, U/S, labs)? Why? @ -none What meds were considered but not given or refused? Why? @ -none Did you discuss the management of the patient with other professionals (professionals i.e. [facility] Shepard, [facility], lab, RT, psych nurse, outreach and education social worker, divorce lawyer, teacher, community development officer, case briefer)? Give summary @ -no Was smoking cessation discussed for >3mins.? @ -no Was critical care preformed (if so, how long)? @ -no Were there social determinants of health that impacted care today? How? (Homelessness, low income, unemployed, alcoholism, drug addiction, transportation, low edu. Level, literacy, decrease access to med. care, [facility], rehab)? @ -none Was there de-escalation of care discussed even if they declined (Discuss DNR or withdrawal of care, Hospice)? DNR status @ -no What co-morbidities impacted this encounter? (DM, HTN, Smoking, COPD, CAD, Cancer, CVA, ARF, Chemo, Hep., AIDS, mental health diagnosis, sleep apnea, morbid obesity)? @ -none Was patient admitted / discharged? Hospital course, mention meds given and route, prescriptions, significant lab abnormalities, going to OR and other pertinent info. @ - 69 female to ER for weakness body aches and pains currently on antibiotics for urinary tract infection does appear to be improving. Patient's symptoms here in the ER significant proved she feels well for discharge home Discharge weakness Undiagnosed new problem with uncertain prognosis? @ -no Drug Therapy requiring intensive monitoring for toxicity (Heparin, Nitro, Insulin, Cardizem)? @ -no Were any procedures done? @ -no Diagnosis/symptom? @ - Acute, or Chronic, or Acute on Chronic? @ -Acute Uncomplicated (without systemic symptoms) or Complicated (systemic symptoms)? @ -Complicated Side effects of treatment? @ -no Exacerbation, Progression, or Severe Exacerbation? @ -exacerbation Poses a threat to life or bodily function? How? (Chest pain, [place], [place], pneumonia, PE, COPD, DKA, ARF, appy, cholecystitis, CVA, Diverticulitis, Homicidal, Suicidal, threat to staff... and all critical care pts) @ -no Reevaluation #5: Differential Fever: Pneumonia, viral URI, endocarditis, myocarditis, pericarditis, otitis, sinusitis, peritonsillar Abscess, retropharyngeal Abscess, epiglottitis, peritonitis, appendicitis, Josselyn cystitis, diverticulitis, hepatitis, colitis, UTI, PID, TOA, pyelonephritis, prostatitis, epididymitis, meningitis, encephalitis, pulmonary embolism, CVA, thyroid storm, pancreatitis, adrenal crisis, cavernous sinus thrombosis, this is not meant to be an all-inclusive list. Differential Chest Pain: Stable Angina, Unstable Angina, STEMI, NSTEMI Aortic Dissection, Pneumothorax, Musculoskeletal, Esophageal Spasm GERD, Cholecystitis, Pancreatitis, Zoster, this is not meant to be an all-inclusive list. EKG Findings - EKG Comments: EKG Findings:: EKG is sinus 60 CA 189 QRS 120 QTc 427 - EKG Results: EKG: interpreted by FIDELINA Medical Decision Making - Medical Decision Making 69 female to ER for weakness body aches and pains currently on antibiotics for urinary tract infection does appear to be improving. Patient's symptoms here in the ER significant proved she feels well for discharge home - Lab Data Result diagrams: 09/13/24 09:10 09/13/24 09:10 Lab Results 09/13/24 09/13/24 09/13/24 Range/Units 09:10 09:10 09:10 WBC 10.4 (3.8-10.6) k/uL RBC 4.40 (3.80-5.40) m/uL Hgb 13.3 (11.4-16.0) gm/dL Hct 41.3 (34.0-46.0) % MCV 93.9 (80.0-100.0) fL MCH 30.2 (25.0-35.0) pg MCHC 32.1 (31.0-37.0) g/dL RDW 13.0 (11.5-15.5) % Plt Count 348 (150-450) k/uL MPV 7.0 Neutrophils % 70 % Lymphocytes % 19 % Monocytes % 8 % Eosinophils % 2 % Basophils % 1 % Neutrophils # 7.3 (1.3-7.7) k/uL Lymphocytes # 2.0 (1.0-4.8) k/uL Monocytes # 0.8 (0-1.0) k/uL Eosinophils # 0.2 (0-0.7) k/uL Basophils # 0.1 (0-0.2) k/uL PT 10.7 (10.0-12.5) sec INR 1.0 (<1.2) APTT 25.1 (22.0-30.0) sec Sodium 127 L (137-145) mmol/L Potassium 4.8 (3.5-5.1) mmol/L Chloride 86 L (98-107) mmol/L Carbon Dioxide 38 H (22-30) mmol/L Anion Gap 3 mmol/L BUN 13 (7-17) mg/dL Creatinine 0.52 (0.52-1.04) mg/dL Est GFR (CKD-EPI)AfAm >90 (>60 ml/min/1.73 sqM) Est GFR (CKD-EPI)NonAf >90 (>60 ml/min/1.73 sqM) Glucose 115 H (74-99) mg/dL Calcium 9.7 (8.4-10.2) mg/dL Phosphorus 3.2 (2.5-4.5) mg/dL Magnesium 1.6 (1.6-2.3) mg/dL Total Bilirubin 0.4 (0.2-1.3) mg/dL AST 35 (14-36) U/L ALT 30 (4-34) U/L Alkaline Phosphatase 72 (38-126) U/L Troponin I (0.000-0.034) ng/mL Total Protein 6.1 L (6.3-8.2) g/dL Albumin 3.8 (3.5-5.0) g/dL Influenza Type A (PCR) (Not Detectd) Influenza Type B (PCR) (Not Detectd) RSV (PCR) (Not Detectd) SARS-CoV-2 (PCR) (Not Detectd) 09/13/24 09/13/24 Range/Units 09:10 09:10 WBC (3.8-10.6) k/uL RBC (3.80-5.40) m/uL Hgb (11.4-16.0) gm/dL Hct (34.0-46.0) % MCV (80.0-100.0) fL MCH (25.0-35.0) pg MCHC (31.0-37.0) g/dL RDW (11.5-15.5) % Plt Count (150-450) k/uL MPV Neutrophils % % Lymphocytes % % Monocytes % % Eosinophils % % Basophils % % Neutrophils # (1.3-7.7) k/uL Lymphocytes # (1.0-4.8) k/uL Monocytes # (0-1.0) k/uL Eosinophils # (0-0.7) k/uL Basophils # (0-0.2) k/uL PT (10.0-12.5) sec INR (<1.2) APTT (22.0-30.0) sec Sodium (137-145) mmol/L Potassium (3.5-5.1) mmol/L Chloride (98-107) mmol/L Carbon Dioxide (22-30) mmol/L Anion Gap mmol/L BUN (7-17) mg/dL Creatinine (0.52-1.04) mg/dL Est GFR (CKD-EPI)AfAm (>60 ml/min/1.73 sqM) Est GFR (CKD-EPI)NonAf (>60 ml/min/1.73 sqM) Glucose (74-99) mg/dL Calcium (8.4-10.2) mg/dL Phosphorus (2.5-4.5) mg/dL Magnesium (1.6-2.3) mg/dL Total Bilirubin (0.2-1.3) mg/dL AST (14-36) U/L ALT (4-34) U/L Alkaline Phosphatase (38-126) U/L Troponin I <0.012 (0.000-0.034) ng/mL Total Protein (6.3-8.2) g/dL Albumin (3.5-5.0) g/dL Influenza Type A (PCR) Not Detected (Not Detectd) Influenza Type B (PCR) Not Detected (Not Detectd) RSV (PCR) Not Detected (Not Detectd) SARS-CoV-2 (PCR) Not Detected (Not Detectd) - EKG Data -: EKG Interpreted by [facility] - Radiology Data Radiology results: report reviewed (Chest x-ray is negative for acute disease), image reviewed Disposition Clinical Impression: Weakness, Viral syndrome Disposition: HOME SELF-CARE Condition: Fair Instructions (If sedation given, give patient instructions): Weakness (ED) Is patient prescribed a controlled substance at d/c from ED?: No Referrals: Andrzej Wheeler MD [Primary Care Provider] - 1-2 days Time of Disposition: 11:00
[2024-09-13] MEDS: SODIUM CHLORIDE 0.9% 1,000 ML IV STA (09:37)
[2024-09-13] MEDS: HYDROmorphone 1 MG/ML 1 ML SYRINGE IVP STA (09:42)
[2024-09-13 09:55] LABS: Partial Thromboplastin Time 25.1 sec (22.0-30.0); Prothrombin Time 10.7 sec (10.0-12.5)
[2024-09-13 09:56] LABS: ALT 30 U/L (4-34); AST 35 U/L (14-36); African American GFR (CKD) >90 (>60 ml/min/1.73 sqM); Albumin 3.8 g/dL (3.5-5.0); Alkaline Phosphatase 72 U/L (38-126); Anion Gap 3 mmol/L; Blood Urea Nitrogen 13 mg/dL (7-17); Calcium 9.7 mg/dL (8.4-10.2); Carbon Dioxide 38 mmol/L (22-30); Chloride 86 mmol/L (98-107); Glucose 115 mg/dL (74-99); Magnesium 1.6 mg/dL (1.6-2.3); Non-African American GFR(CKD) >90 (>60 ml/min/1.73 sqM); Phosphorus 3.2 mg/dL (2.5-4.5); Potassium 4.8 mmol/L (3.5-5.1); Sodium 127 mmol/L (137-145); Total Bilirubin 0.4 mg/dL (0.2-1.3); Total Protein 6.1 g/dL (6.3-8.2)
[2024-09-13 09:57] LABS: Basophils # (A) 0.1 k/uL (0-0.2); Basophils % (A) 1 %; Eosinophils # (A) 0.2 k/uL (0-0.7); Eosinophils % (A) 2 %; HCT 41.3 % (34.0-46.0); HGB 13.3 gm/dL (11.4-16.0); Lymphocytes % (A) 19 %; MCH 30.2 pg (25.0-35.0); MCHC 32.1 g/dL (31.0-37.0); MCV 93.9 fL (80.0-100.0); Monocytes # (A) 0.8 k/uL (0-1.0); Monocytes % (A) 8 %; Neutrophils # (A) 7.3 k/uL (1.3-7.7); Neutrophils % (A) 70 %; Platelet Count 348 k/uL (150-450); WBC 10.4 k/uL (3.8-10.6)
[2024-09-13] MEDS: ONDANSETRON 4 MG/2 ML VIAL IVP STA (10:21)
[2024-09-13 10:24] LABS: Influenza A Not Detected (Not Detectd); Influenza B Not Detected (Not Detectd); RSV Not Detected (Not Detectd)
[2024-09-13] MEDS: ACETAMINOPHEN IV (For NPO) 1,000 MG in EMPTY BAG 1 BAG IVPB STA (10:27)
--- NOTE | 2024-09-13 11:30 | XR ---
EXAMINATION TYPE: XR chest 2V DATE OF EXAM: 09/13/2024 CLINICAL HISTORY: Weakness TECHNIQUE: Frontal and lateral views of the chest are obtained. COMPARISON: Chest x-ray June 20, 2024 FINDINGS: There is persistent low lung volumes and bibasilar opacities. Persistent cardiomegaly. T he osseous structures remain demineralized. IMPRESSION: Cardiomegaly with bibasilar acute infiltrates and/or atelectasis and possible small tiny bilateral pleural effusions. [facility], , 09/13/2024 11:28 AM
[2024-09-13 11:32] VITALS: BP 102/55; PULSE 60; RESP 16; TEMP 97.9
== END 2024-09-13 11:54 | disposition home or self-care (01) ==
LOC: EC 08:48
DX: R53.1 Weakness (principal); B34.9 Viral infection, unspecified; G89.29 Other chronic pain; Z99.81 Dependence on supplemental oxygen; Z87.440 Personal history of urinary (tract) infections; F17.200 Nicotine dependence, unspecified, uncomplicated
CPT/HCPCS: 36415; 93005; 80053; 83735; 84100; 84484; 85025; 85610; 85730; 87040; 87636; 71046; 99284; 96365; 96367; 96375; J2405; J0696; J1171; J0131

== ENCOUNTER 2024-09-22 10:57 | Emergency (ER) | payer MEDICARE ==
--- NOTE | 2024-09-22 11:16 | ED ---
SOB HPI - General Chief Complaint: Shortness of Breath Stated Complaint: jaun Time Seen by Provider: 09/22/24 11:02 Source: patient, RN notes reviewed Mode of arrival: ambulatory Limitations: no limitations - History of Present Illness Initial Comments: This is a 69-year-old female who presents to the emergency department for shortness of breath. States that it has been worsening over the last 2 to 3 days. She is on 3 L of oxygen at home. She has a cough that is occasionally productive. Reports a history of asthma, COPD, and CHF. Denies any swelling in her extremities. She does report chest pain and pain in her left arm. States that the left wrist is the most painful and worse with movement and to the touch. Patient also states that she is very anxious and scared and feels like she is having a panic attack. MD Complaint: shortness of breath, cough, chest pain - Related Data Home Medications Medication Instructions Recorded Confirmed Montelukast [Singulair] 10 mg PO HS 12/17/13 07/26/24 Levothyroxine Sodium [Synthroid] 150 mcg PO DAILY 03/29/20 07/26/24 Budesonide/Formoterol Fumarate 2 puff INHALATION RT-BID 06/12/21 07/26/24 [Symbicort 160-4.5 Mcg Inhaler] Famotidine [Pepcid] 20 mg PO BID 09/03/21 07/26/24 Tamsulosin [Flomax] 0.4 mg PO DAILY 10/26/21 07/26/24 Ipratropium-Albuterol Nebulize 3 ml INHALATION RT-QID PRN 11/13/22 07/26/24 [Duoneb 0.5 mg-3 mg/3 ml Soln] Ibandronate Sodium [Boniva] 150 mg PO Q30D 05/03/23 07/26/24 clonazePAM [KlonoPIN ODT] 0.25 mg PO HS 12/12/23 07/26/24 lamoTRIgine [LaMICtal] 100 mg PO BID 03/18/24 07/26/24 Metoprolol Tartrate [Lopressor] 25 mg PO BID 05/16/24 07/26/24 Gabapentin 300 mg PO TID 06/01/24 07/26/24 busPIRone HCL [Buspar] 30 mg PO BID 06/09/24 07/26/24 Previous Rx's Medication Instructions Recorded Albuterol Inhaler [Ventolin Hfa 2 puff INHALATION RT-QID PRN #1 11/17/22 Inhaler] each Pyridoxine [Vitamin B-6] 50 mg PO DAILY #30 tab 03/28/24 Divalproex ER [Depakote ER] 250 mg PO BID #60 tab 05/26/24 OLANZapine [ZyPREXA] 5 mg PO HS #30 tab 05/26/24 Venlafaxine HCl ER [Effexor XR] 75 mg PO DAILY #30 cap 05/26/24 Acetaminophen Tab [Tylenol] 650 mg PO Q6HR PRN tab 06/02/24 Cyclobenzaprine [Flexeril] 10 mg PO TID PRN 15 Days #30 tab 06/11/24 Furosemide [Lasix] 20 mg PO DAILY #30 tab 06/22/24 amLODIPine [Norvasc] 10 mg PO DAILY #30 tab 06/22/24 lisinopriL [Prinivil] 30 mg PO DAILY #90 tab 06/22/24 HYDROcodone/APAP 5-325MG [[place] 1 tab PO Q4HR PRN 3 Days #15 tab 06/28/24 5-325] Tolvaptan [Samsca] 7.5 mg PO WESA 8 Days #4 tablet 06/28/24 Levofloxacin [Levaquin] 750 mg PO DAILY 5 Days #5 tab 09/22/24 predniSONE 50 mg PO DAILY 5 Days #5 tablet 09/22/24 Allergies Allergy/AdvReac Type Severity Reaction Status Date / Time codeine Allergy Unknown Verified 09/22/24 11:01 Childhood Penicillins Allergy Rash/Hives Verified 09/22/24 11:01 Sulfa (Sulfonamide Allergy Rash/Hives Verified 09/22/24 11:01 Antibiotics) Review of Systems ROS Statement: Those systems with pertinent positive or pertinent negative responses have been documented in the HPI. ROS Other: All systems not noted in ROS Statement are negative. 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 History of Any Multi-Drug Resistant Organisms: MRSA Date of last positivie culture/infection: 03/2024 MDRO Source:: Knee Past Surgical History: Bariatric Surgery, Section, Cholecystectomy, Hysterectomy, Tonsillectomy Additional Past Surgical History / Comment(s): EGD, colonoscopies, gastric bypass, surgery for deviated septum, left cataract removal (having laser pro cedure on that eye 11/24/23) Past Anesthesia/Blood Transfusion Reactions: Previous Problems w/ Anesthesia Additional Past Anesthesia/Blood Transfusion Reaction / Comment(s): itching after hysterectomy, some kind of breathing problem after gastric bypass-not sure what happened Past Psychological History: Anxiety, Bipolar, Depression, Panic Disorder Smoking Status: Current every day smoker Past Alcohol Use History: None Reported Past Drug Use History: Marijuana - Past Family History Mother Family Medical History: Congestive Heart Failure (CHF), Hypertension Father History Unknown: Yes Additional Family Medical History / Comment(s): Father at the age of 45 yrs d/t having had rheumatic fever as a child and heart valve disease. General Exam Limitations: no limitations General appearance: alert, anxious Head exam: Present: atraumatic, normocephalic, normal inspection Respiratory exam: Present: wheezes, decreased breath sounds, prolonged expiratory Cardiovascular Exam: Present: regular rate, normal rhythm Extremities exam: Present: other (Tenderness to palpation over the left wrist. Range of motion limited by pain. No swelling or erythema. 2+ radial pulses) Neurological exam: Present: alert, oriented X3, CN II-XII intact Psychiatric exam: Present: normal affect, normal mood Skin exam: Present: warm, dry, intact, normal color. Absent: rash Course Vital Signs 09/22/24 09/22/24 09/22/24 10:58 11:56 12:36 Temperature 98.3 F Pulse Rate 67 62 62 Respiratory 24 20 Rate Blood Pressure 143/52 130/54 O2 Sat by Pulse 90 L 95 Oximetry 09/22/24 09/22/24 12:46 13:20 Temperature 98.1 F Pulse Rate 64 61 Respiratory 18 Rate Blood Pressure 141/59 O2 Sat by Pulse 95 Oximetry Medical Decision Making - Medical Decision Making This is a 69-year-old female who presents to the emergency department for shortness of breath. Was pt. sent in by a medical professional or institution? @ -No Did you speak to anyone other than the patient for history? @ -No Did you review nursing and triage notes? @ -Yes, and I agree, it is accurate with regards to the patient's symptoms. Were old charts reviewed? @ -No Differential Diagnosis? @ -Differential Dyspnea: Coronary syndrome, arrhythmia, tamponade, asthma, COPD, pulmonary embolism, pneumonia, pneumothorax, pulmonary effusion, anaphylaxis, diabetic ketoacidosis, flailed chest, pulmonary contusion, diaphragmatic rupture, anemia, neuromuscular, this is not meant to be an all-inclusive list. EKG interpreted by me (3pts min.)? @ -EKG interpreted by me demonstrating the following: Sinus rhythm. Ventricular rate 60 bpm, MI interval 206 ms, QRS duration 119 ms, QTc 418 ms. X-rays interpreted by me (1pt min.)? @ -Chest x-ray obtained. My interpretation identifies a right basilar infiltrate. CT interpreted by me (1pt min.)? @ -Not obtained U/S interpreted by me (1pt. min.)? @ -Not obtained What testing was considered but not performed? (CT, X-rays, U/S, labs)? Why? @ -None What meds were considered but not given? Why? @ -None Did you discuss the management of the patient with other professionals? @ -No Did you reconcile home meds? @ -No Was smoking cessation discussed for >3mins.? @ -No Was critical care preformed (if so, how long)? @ -No Were there social determinants of health that impacted care today? How? (Homelessness, low income, unemployed, alcoholism, drug addiction, transportation, low edu. Level, literacy, decrease access to med. care, group home, rehab)? @ -No Was there de-escalation of care discussed even if they declined? (Discuss DNR or withdrawal of care, Hospice)? @ -No What co-morbidities impacted this encounter? (DM, HTN, Smoking, COPD, CAD, Cancer, CVA, Hep., AIDS, mental health diagnosis, sleep apnea, morbid obesity)? @ -Asthma, COPD, CHF Was patient admitted / discharged? @ -Discharged. Lab work demonstrates leukocytosis with a white blood cell count of 12.6. She is also hyponatremic with a sodium of 125. Patient is frequently hyponatremic with a sodium around this level. COVID, influenza, and RSV testing negative. Urinalysis negative for signs of infection. Chest x-ray demonstrates persistent low lung volumes and cardiomegaly with a small right pleural effusion and right basilar acute infiltrate and/or atelectasis. Given the possibility of pneumonia with the hyponatremia, I did offer and recommend admission, especially because she is oxygen dependent. However, patient states that she would rather try going home. Given that she is high risk with multiple comorbidities, she was put on levofloxacin for potential pneumonia. Prednisone prescribed as well. Very strict return parameters were discussed and I advised very close follow-up with her PCP. Patient discharged home in stable condition. Case discussed with ED attending Dr. Sanchez. Return precautions reviewed in depth, the patient is instructed to return to the emergency department with any new, worsening, or concerning symptoms. Patient verbalized understanding. Undiagnosed new problem with uncertain prognosis? @ -None Drug Therapy requiring intensive monitoring for toxicity (Heparin, Nitro, Insulin, Cardizem)? @ -None Were any procedures done? @ -None Diagnosis/symptom? @ -Pneumonia, hyponatremia Acute, or Chronic, or Acute on Chronic? @ -Acute Uncomplicated (without systemic symptoms) or Complicated (systemic symptoms)? @ -Complicated Side effects of treatment? @ -None Exacerbation, Progression, or Severe Exacerbation] @ -Not applicable Poses a threat to life or bodily function? @ -This will depend on how she progresses - Lab Data Result diagrams: 09/22/24 12:00 09/22/24 12:00 Lab Results 09/22/24 09/22/24 09/22/24 Range/Units 12:00 12:00 12:00 WBC 12.6 H (3.8-10.6) k/uL RBC 4.01 (3.80-5.40) m/uL Hgb 12.1 (11.4-16.0) gm/dL Hct 39.2 (34.0-46.0) % MCV 97.6 (80.0-100.0) fL MCH 30.1 (25.0-35.0) pg MCHC 30.8 L (31.0-37.0) g/dL RDW 12.6 (11.5-15.5) % Plt Count 394 (150-450) k/uL MPV 6.6 Neutrophils % 73 % Lymphocytes % 15 % Monocytes % 8 % Eosinophils % 2 % Basophils % 1 % Neutrophils # 9.2 H (1.3-7.7) k/uL Lymphocytes # 1.9 (1.0-4.8) k/uL Monocytes # 1.0 (0-1.0) k/uL Eosinophils # 0.2 (0-0.7) k/uL Basophils # 0.1 (0-0.2) k/uL PT 10.3 (10.0-12.5) sec INR 0.9 (<1.2) APTT 25.3 (22.0-30.0) sec Sodium 125 L (137-145) mmol/L Potassium 5.0 (3.5-5.1) mmol/L Chloride 88 L (98-107) mmol/L Carbon Dioxide 34 H (22-30) mmol/L Anion Gap 3 mmol/L BUN 27 H (7-17) mg/dL Creatinine 0.59 (0.52-1.04) mg/dL Est GFR (CKD-EPI)AfAm >90 (>60 ml/min/1.73 sqM) Est GFR (CKD-EPI)NonAf >90 (>60 ml/min/1.73 sqM) Glucose 106 H (74-99) mg/dL Plasma Lactic Acid Joel (0.7-2.0) mmol/L Calcium 9.2 (8.4-10.2) mg/dL Magnesium 2.1 (1.6-2.3) mg/dL Total Bilirubin 0.4 (0.2-1.3) mg/dL AST 44 H (14-36) U/L ALT 51 H (4-34) U/L Alkaline Phosphatase 80 (38-126) U/L Troponin I (0.000-0.034) ng/mL NT-Pro-B Natriuret Pep 619 pg/mL Total Protein 5.9 L (6.3-8.2) g/dL Albumin 3.6 (3.5-5.0) g/dL Urine Color Urine Appearance (Clear) Urine pH (5.0-8.0) Ur Specific [place] (1.001-1.035) Urine Protein (Negative) Urine Glucose (UA) (Negative) Urine Ketones (Negative) Urine Blood (Negative) Urine Nitrite (Negative) Urine Bilirubin (Negative) Urine Urobilinogen (<2.0) mg/dL Ur Leukocyte Esterase (Negative) Influenza Type A (PCR) (Not Detectd) Influenza Type B (PCR) (Not Detectd) RSV (PCR) (Not Detectd) SARS-CoV-2 (PCR) (Not Detectd) 09/22/24 09/22/24 09/22/24 Range/Units 12:00 12:00 12:00 WBC (3.8-10.6) k/uL RBC (3.80-5.40) m/uL Hgb (11.4-16.0) gm/dL Hct (34.0-46.0) % MCV (80.0-100.0) fL MCH (25.0-35.0) pg MCHC (31.0-37.0) g/dL RDW (11.5-15.5) % Plt Count (150-450) k/uL MPV Neutrophils % % Lymphocytes % % Monocytes % % Eosinophils % % Basophils % % Neutrophils # (1.3-7.7) k/uL Lymphocytes # (1.0-4.8) k/uL Monocytes # (0-1.0) k/uL Eosinophils # (0-0.7) k/uL Basophils # (0-0.2) k/uL PT (10.0-12.5) sec INR (<1.2) APTT (22.0-30.0) sec Sodium (137-145) mmol/L Potassium (3.5-5.1) mmol/L Chloride (98-107) mmol/L Carbon Dioxide (22-30) mmol/L Anion Gap mmol/L BUN (7-17) mg/dL Creatinine (0.52-1.04) mg/dL Est GFR (CKD-EPI)AfAm (>60 ml/min/1.73 sqM) Est GFR (CKD-EPI)NonAf (>60 ml/min/1.73 sqM) Glucose (74-99) mg/dL Plasma Lactic Acid Joel 0.6 L (0.7-2.0) mmol/L Calcium (8.4-10.2) mg/dL Magnesium (1.6-2.3) mg/dL Total Bilirubin (0.2-1.3) mg/dL AST (14-36) U/L ALT (4-34) U/L Alkaline Phosphatase (38-126) U/L Troponin I <0.012 (0.000-0.034) ng/mL NT-Pro-B Natriuret Pep pg/mL Total Protein (6.3-8.2) g/dL Albumin (3.5-5.0) g/dL Urine Color Urine Appearance (Clear) Urine pH (5.0-8.0) Ur Specific [place] (1.001-1.035) Urine Protein (Negative) Urine Glucose (UA) (Negative) Urine Ketones (Negative) Urine Blood (Negative) Urine Nitrite (Negative) Urine Bilirubin (Negative) Urine Urobilinogen (<2.0) mg/dL Ur Leukocyte Esterase (Negative) Influenza Type A (PCR) Not Detected (Not Detectd) Influenza Type B (PCR) Not Detected (Not Detectd) RSV (PCR) Not Detected (Not Detectd) SARS-CoV-2 (PCR) Not Detected (Not Detectd) 09/22/24 Range/Units 13:24 WBC (3.8-10.6) k/uL RBC (3.80-5.40) m/uL Hgb (11.4-16.0) gm/dL Hct (34.0-46.0) % MCV (80.0-100.0) fL MCH (25.0-35.0) pg MCHC (31.0-37.0) g/dL RDW (11.5-15.5) % Plt Count (150-450) k/uL MPV Neutrophils % % Lymphocytes % % Monocytes % % Eosinophils % % Basophils % % Neutrophils # (1.3-7.7) k/uL Lymphocytes # (1.0-4.8) k/uL Monocytes # (0-1.0) k/uL Eosinophils # (0-0.7) k/uL Basophils # (0-0.2) k/uL PT (10.0-12.5) sec INR (<1.2) APTT (22.0-30.0) sec Sodium (137-145) mmol/L Potassium (3.5-5.1) mmol/L Chloride (98-107) mmol/L Carbon Dioxide (22-30) mmol/L Anion Gap mmol/L BUN (7-17) mg/dL Creatinine (0.52-1.04) mg/dL Est GFR (CKD-EPI)AfAm (>60 ml/min/1.73 sqM) Est GFR (CKD-EPI)NonAf (>60 ml/min/1.73 sqM) Glucose (74-99) mg/dL Plasma Lactic Acid [place] (0.7-2.0) mmol/L Calcium (8.4-10.2) mg/dL Magnesium (1.6-2.3) mg/dL Total Bilirubin (0.2-1.3) mg/dL AST (14-36) U/L ALT (4-34) U/L Alkaline Phosphatase (38-126) U/L Troponin I (0.000-0.034) ng/mL NT-Pro-B Natriuret Pep pg/mL Total Protein (6.3-8.2) g/dL Albumin (3.5-5.0) g/dL Urine Color Light Yellow Urine Appearance Clear (Clear) Urine pH 5.5 (5.0-8.0) Ur Specific [place] 1.012 (1.001-1.035) Urine Protein Negative (Negative) Urine Glucose (UA) Negative (Negative) Urine Ketones Negative (Negative) Urine Blood Negative (Negative) Urine Nitrite Negative (Negative) Urine Bilirubin Negative (Negative) Urine Urobilinogen <2.0 (<2.0) mg/dL Ur Leukocyte Esterase Negative (Negative) Influenza Type A (PCR) (Not Detectd) Influenza Type B (PCR) (Not Detectd) RSV (PCR) (Not Detectd) SARS-CoV-2 (PCR) (Not Detectd) - Radiology Data Radiology results: report reviewed, image reviewed Disposition Clinical Impression: Shortness of breath, Pneumonia, Hyponatremia Disposition: HOME SELF-CARE Instructions (If sedation given, give patient instructions): Pneumonia (ED) Additional Instructions: Return to the emergency department with any new, worsening, or concerning symptoms. Take the antibiotic as prescribed for 5 days. Take the prednisone daily for 5 days. Follow up with your primary care provider in 1-2 days. Prescriptions: Levofloxacin [Levaquin] 750 mg PO DAILY 5 Days #5 tab predniSONE 50 mg PO DAILY 5 Days #5 tablet Is patient prescribed a controlled substance at d/c from ED?: No Referrals: Andrzej Wheeler MD [Primary Care Provider] - 1-2 days Time of Disposition: 14:57
--- NOTE | 2024-09-22 11:50 | XR ---
EXAMINATION TYPE: XR chest 2V DATE OF EXAM: 09/22/2024 11:43 AM COMPARISON: Chest x-ray September 13, 2024 CLINICAL INDICATION: Female, 69 years old with history of difficulty breathing, TECHNIQUE: Frontal and lateral views of the chest are obtained. FINDINGS: Persistent low lung volumes. Persistent cardiomegaly with small right pleural effusion and right basilar opacity. The osseous structures remain demineralized. IMPRESSION: Persistent low lung volumes and cardiomegaly with small right pleural effusion and right basilar acute infiltrate and/or atelectasis. [facility], , 09/22/2024 11:47 AM
[2024-09-22] MEDS: HYDROmorphone 1 MG/ML 1 ML SYRINGE IVP STA (12:02)
[2024-09-22] MEDS: LORazepam 2 MG/ML INJ IV STA (12:06)
[2024-09-22 12:10] LABS: Basophils # (A) 0.1 k/uL (0-0.2); Basophils % (A) 1 %; Eosinophils # (A) 0.2 k/uL (0-0.7); Eosinophils % (A) 2 %; HCT 39.2 % (34.0-46.0); HGB 12.1 gm/dL (11.4-16.0); Lymphocytes # (A) 1.9 k/uL (1.0-4.8); Lymphocytes % (A) 15 %; MCH 30.1 pg (25.0-35.0); MCHC 30.8 g/dL (31.0-37.0); MCV 97.6 fL (80.0-100.0); Mean Platelet Volume 6.6; Monocytes % (A) 8 %; Neutrophils # (A) 9.2 k/uL (1.3-7.7); Neutrophils % (A) 73 %; Platelet Count 394 k/uL (150-450); RBC 4.01 m/uL (3.80-5.40); RDW 12.6 % (11.5-15.5); WBC 12.6 k/uL (3.8-10.6)
[2024-09-22 12:23] LABS: INR 0.9 (<1.2); Partial Thromboplastin Time 25.3 sec (22.0-30.0); Prothrombin Time 10.3 sec (10.0-12.5)
[2024-09-22 12:25] LABS: ALT 51 U/L (4-34); AST 44 U/L (14-36); African American GFR (CKD) >90 (>60 ml/min/1.73 sqM); Albumin 3.6 g/dL (3.5-5.0); Alkaline Phosphatase 80 U/L (38-126); Anion Gap 3 mmol/L; Blood Urea Nitrogen 27 mg/dL (7-17); Calcium 9.2 mg/dL (8.4-10.2); Carbon Dioxide 34 mmol/L (22-30); Chloride 88 mmol/L (98-107); Glucose 106 mg/dL (74-99); Magnesium 2.1 mg/dL (1.6-2.3); Non-African American GFR(CKD) >90 (>60 ml/min/1.73 sqM); Sodium 125 mmol/L (137-145); Total Bilirubin 0.4 mg/dL (0.2-1.3); Total Protein 5.9 g/dL (6.3-8.2)
[2024-09-22 12:33] LABS: NT-Pro-B-Type Natriuretic Pept 619 pg/mL
[2024-09-22] MEDS: IPRATROPIUM-ALBUTEROL 3 ML NEB INHALATION STA (12:36)
[2024-09-22 12:50] LABS: Influenza A Not Detected (Not Detectd); Influenza B Not Detected (Not Detectd); RSV Not Detected (Not Detectd)
[2024-09-22 13:20] VITALS: BP 141/59; PULSE 61; RESP 18; TEMP 98.1
[2024-09-22] MEDS: ONDANSETRON 4 MG/2 ML VIAL IVP STA (13:21)
[2024-09-22 13:45] LABS: Appearance,Urine Clear (Clear); Bilirubin,Urine Negative (Negative); Blood,Urine Negative (Negative); Color,Urine Light Yellow; Glucose,Urine (UA) Negative (Negative); Ketones,Urine Negative (Negative); Leukocyte Esterase,Urine Negative (Negative); Nitrite,Urine Negative (Negative); PH, Urine 5.5 (5.0-8.0); Protein,Urine Negative (Negative); Specific Gravity,Urine 1.012 (1.001-1.035); Urobilinogen,Urine <2.0 mg/dL (<2.0)
== END 2024-09-22 16:25 | disposition home or self-care (01) ==
LOC: EC 10:57
DX: J18.9 Pneumonia, unspecified organism (principal); E87.1 Hypo-osmolality and hyponatremia; J44.89 Other specified chronic obstructive pulmonary disease; I11.0 Hypertensive heart disease with heart failure; I50.9 Heart failure, unspecified; F17.200 Nicotine dependence, unspecified, uncomplicated; Z79.899 Other long term (current) drug therapy
CPT/HCPCS: 36415; 94640; 93005; 83880; 80053; 83605; 83735; 84484; 85025; 85610; 85730; 81003; 87636; 71046; 99285; 96374; 96375 ×2; J2060; J2405; J1171

== ENCOUNTER → 2024-10-09 | Outpatient (CLI) | payer MEDICARE ==
--- NOTE | 2024-10-09 12:53 | XR ---
EXAMINATION TYPE: XR wrist complete LT, XR hand complete LT DATE OF EXAM: 10/09/2024 12:31 PM COMPARISON: None CLINICAL INDICATION: Female, 69 years old with history of M79.642 PAIN IN LEFT HAND, pain TECHNIQUE: XR wrist complete LT, XR hand complete LT; examined in the Frontal, navicular, lateral, a nd oblique. FINDINGS: No acute osseous pathology, joint dislocation, or joint effusion. No evidence of any soft tissue swelling is seen. Mild multilevel degeneration changes of the joints of the wrist and hand mos t proximal at the interphalangeal joints of mild joint space narrowing.. IMPRESSION: 1. No acute osseous pathology. 2. Mild multifocal degeneration changes of the joints of the wrists and hands. [facility], , 10/09/2024 12:51 PM
== END | disposition home or self-care (01) ==
LOC: RADXRMAIN 12:18
PROVIDERS: ATTEND Nurse Practitioner Family
DX: M19.042 Primary osteoarthritis, left hand (principal)

== ENCOUNTER 2024-10-17 08:58 | Inpatient (IN) | payer MEDICARE ==
--- NOTE | 2024-10-17 09:37 | ED ---
General Adult HPI - General Chief complaint: Back Pain/Injury Stated complaint: back pain, ИВАН Time Seen by Provider: 10/17/24 09:14 Source: patient, RN notes reviewed Mode of arrival: wheelchair Limitations: no limitations - History of Present Illness Initial comments: This is a 69-year-old female presents emergency department complaint of back pain. Patient states she has pain rating up and down her back. Patient states she does have a history of COPD and short of breath but is chronically on oxygen. Patient denies fever or chills. Patient denies any chest pain abdominal pain nausea vomiting she does have some urinary frequency. Patient is on current pain med she does have known back issues in which she told she needs surgery but she states she has to any bad habits to have her surgery. Patient denies any bowel, bladder incontinence retention no saddle anesthesias. - Related Data Home Medications Medication Instructions Recorded Confirmed Montelukast [Singulair] 10 mg PO HS 12/17/13 10/17/24 Levothyroxine Sodium [Synthroid] 150 mcg PO DAILY 03/29/20 10/17/24 Famotidine [Pepcid] 20 mg PO BID 09/03/21 10/17/24 Tamsulosin [Flomax] 0.4 mg PO HS 10/26/21 10/17/24 Ipratropium-Albuterol Nebulize 3 ml INHALATION RT-QID 11/13/22 10/17/24 [Duoneb 0.5 mg-3 mg/3 ml Soln] clonazePAM [KlonoPIN ODT] 0.25 mg PO HS 12/12/23 10/17/24 lamoTRIgine [LaMICtal] 100 mg PO BID 03/18/24 10/17/24 Metoprolol Tartrate [Lopressor] 25 mg PO BID 05/16/24 10/17/24 Gabapentin 300 mg PO TID 06/01/24 10/17/24 busPIRone HCL [Buspar] 30 mg PO BID 06/09/24 10/17/24 Cefdinir [Omnicef] 300 mg PO Q12HR 10/17/24 10/17/24 Fluticasone/Umeclidin/Vilanter 1 puff INHALATION RT-DAILY 10/17/24 10/17/24 [Trelegy Ellipta 200-62.5-25] Naproxen [EC-Naprosyn] 500 mg PO BID-W/MEALS 10/17/24 10/17/24 OLANZapine 15 mg PO HS 10/17/24 10/17/24 Sodium Chloride Tab 1 gm PO DAILY 10/17/24 10/17/24 Venlafaxine HCl [Effexor XR] 150 mg PO DAILY 10/17/24 10/17/24 amLODIPine [Norvasc] 5 mg PO DAILY 10/17/24 10/17/24 lisinopriL [Zestril] 20 mg PO DAILY 10/17/24 10/17/24 methocarbamoL [Robaxin-750] 750 mg PO BID PRN 10/17/24 10/17/24 Previous Rx's Medication Instructions Recorded Albuterol Inhaler [Ventolin Hfa 2 puff INHALATION RT-QID PRN #1 11/17/22 Inhaler] each Divalproex ER [Depakote ER] 250 mg PO BID #60 tab 05/26/24 Acetaminophen Tab [Tylenol] 650 mg PO Q6HR PRN tab 06/02/24 Furosemide [Lasix] 20 mg PO DAILY #30 tab 06/22/24 Allergies Allergy/AdvReac Type Severity Reaction Status Date / Time codeine Allergy Unknown Verified 10/17/24 10:39 Childhood Penicillins Allergy Rash/Hives Verified 10/17/24 10:39 Sulfa (Sulfonamide Allergy Rash/Hives Verified 10/17/24 10:39 Antibiotics) Review of Systems ROS Statement: Those systems with pertinent positive or pertinent negative responses have been documented in the HPI. ROS Other: All systems not noted in ROS Statement are negative. 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 History of Any Multi-Drug Resistant Organisms: MRSA Date of last positivie culture/infection: 03/2024 MDRO Source:: Knee Past Surgical History: Bariatric Surgery, Section, Cholecystectomy, Hysterectomy, Tonsillectomy Additional Past Surgical History / Comment(s): EGD, colonoscopies, gastric bypass, surgery for deviated septum, left cataract removal (having laser procedure on that eye 11/24/23) Past Anesthesia/Blood Transfusion Reactions: Previous Problems w/ Anesthesia Additional Past Anesthesia/Blood Transfusion Reaction / Comment(s): itching after hysterectomy, some kind of breathing problem after gastric bypass-not sure what happened Past Psychological History: Anxiety, Bipolar, Depression, Panic Disorder Smoking Status: Current every day smoker Past Alcohol Use History: None Reported Past Drug Use History: Marijuana - Past Family History Mother Family Medical History: Congestive Heart Failure (CHF), Hypertension Father History Unknown: Yes Additional Family Medical History / Comment(s): Father at the age of 45 yrs d/t having had rheumatic fever as a child and heart valve disease. General Exam Limitations: no limitations General appearance: alert, in no apparent distress Head exam: Present: atraumatic, normocephalic, normal inspection Eye exam: Present: normal appearance, PERRL, EOMI. Absent: scleral icterus, conjunctival injection, periorbital swelling ENT exam: Present: normal exam, normal oropharynx, mucous membranes moist Neck exam: Present: normal inspection, full ROM. Absent: tenderness, meningismus, lymphadenopathy Respiratory exam: Present: normal lung sounds bilaterally. Absent: respiratory distress, wheezes, rales, rhonchi, stridor Cardiovascular Exam: Present: regular rate, normal rhythm, normal heart sounds. Absent: systolic murmur, diastolic murmur, rubs, gallop, clicks GI/Abdominal exam: Present: soft, normal bowel sounds. Absent: distended, tenderness, guarding, rebound, rigid Back exam: Present: full ROM, tenderness, paraspinal tenderness, vertebral tenderness Neurological exam: Present: alert, oriented X3 Course Vital Signs 10/17/24 10/17/24 10/17/24 09:01 10:07 12:00 Temperature 98.6 F 98 F Pulse Rate 71 76 60 Respiratory 20 18 16 Rate Blood Pressure 142/54 177/81 115/77 O2 Sat by Pulse 90 L 93 L 95 Oximetry EKG Findings - EKG Comments: EKG Findings:: At 9: 18 sinus rhythm rate 93 QRS 123 QT/QTc 373/391 - EKG Results: EKG: interpreted by LAUREND Medical Decision Making - Medical Decision Making Was pt. sent in by a medical professional or institution (HERMINIA Shepard, PULMONOLOGIST, urgent care, hospital, or [facility]...) When possible be specific @ -No Did you speak to anyone other than the patient for history (EMS, parent, family, police, friend...)? What history was obtained from this source @ -No Did you review nursing and triage notes (agree or disagree)? Why? @ -I reviewed and agree with nursing and triage notes Were old charts reviewed (outside hosp., previous admission, EMS record, old EKG, old radiological studies, urgent care reports/EKG's, [facility] records)? Report findings @ -No old charts were reviewed Differential Diagnosis (chest pain, altered mental status, abdominal pain women, abdominal pain men, vaginal bleeding, weakness, fever, dyspnea, syncope, headache, dizziness, GI bleed, back pain, seizure, CVA, palpatations, mental health, musculoskeletal)? @ -Differential Dyspnea: Coronary syndrome, arrhythmia, tamponade, asthma, COPD, pulmonary embolism, pneumonia, pneumothorax, pulmonary effusion, anaphylaxis, diabetic ketoacidosis, flailed chest, pulmonary contusion, diaphragmatic rupture, anemia, neuromuscular, this is not meant to be an all-inclusive list. Differential Weakness: Hypoglycemia, shock, sepsis, hyponatremia, anemia, infection, AL, ETOH, adverse medicine reaction, overdose, stroke, this is not meant to be an all-inclusive li st. EKG interpreted by me (3pts min.). @ -As above X-rays interpreted by me (1pt min.). @ -Chest x-ray shows pulmonary infiltrates CT interpreted by me (1pt min.). @ -None done U/S interpreted by me (1pt. min.). @ -None done What testing was considered but not performed or refused? (CT, X-rays, U/S, labs)? Why? @ -None What meds were considered but not given or refused? Why? @ -None Did you discuss the management of the patient with other professionals (professionals i.e. HERMINIA Shepard, PULMONOLOGIST, lab, RT, psych nurse, director of social services, ocular pathologist, teacher, transit authority police officer, pillowcase maker)? Give summary @ -EM for admission Was smoking cessation discussed for >3mins.? @ -No Was critical care preformed (if so, how long)? @ -No Were there social determinants of health that impacted care today? How? (Homelessness, low income, unemployed, alcoholism, drug addiction, transportation, low edu. Level, literacy, decrease access to med. care, [facility], rehab)? @ -No Was there de-escalation of care discussed even if they declined (Discuss DNR or withdrawal of care, Hospice)? DNR status @ -No What co-morbidities impacted this encounter? (DM, HTN, Smoking, COPD, CAD, Cancer, CVA, ARF, Chemo, Hep., AIDS, mental health diagnosis, sleep apnea, morbid obesity)? @ -None Was patient admitted / discharged? Hospital course, mention meds given and route, prescriptions, significant lab abnormalities, going to OR and other per tinent info. @ -Admitted patient's found to have acute hyponatremia,, hypomagnesemia with acute pulmonary infiltrate., Azithromycin. Patient will have magnesium replacement along with gentle hydration recheck electrolytes. Patient does have acute on chronic back pain without any red flag symptoms. Patient provided analgesics. Undiagnosed new problem with uncertain prognosis? @ -No Drug Therapy requiring intensive monitoring for toxicity (Heparin, Nitro, Insulin, Cardizem)? @ -No Were any procedures done? @ -No Diagnosis/symptom? @ -Back pain, hyponatremia, hypomagnesemia, pneumonia Acute, or Chronic, or Acute on Chronic? @ -Acute Uncomplicated (without systemic symptoms) or Complicated (systemic symptoms)? @ -Complicated Side effects of treatment? @ -No Exacerbation, Progression, or Severe Exacerbation? @ -No Poses a threat to life or bodily function? How? (Chest pain, USA, AL, pneumonia, PE, COPD, DKA, ARF, appy, cholecystitis, CVA, Diverticulitis, Homicidal, Suicidal, threat to staff... and all critical care pts) @ -Yes pneumonia could cause respiratory failure - Lab Data Result diagrams: 10/17/24 09:44 10/17/24 12:55 Lab Results 10/17/24 10/17/24 10/17/24 Range/Units 09:44 09:44 09:44 WBC 16.7 H (3.8-10.6) k/uL RBC 4.34 (3.80-5.40) m/uL Hgb 13.0 (11.4-16.0) gm/dL Hct 40.5 (34.0-46.0) % MCV 93.3 (80.0-100.0) fL MCH 29.9 (25.0-35.0) pg MCHC 32.1 (31.0-37.0) g/dL RDW 12.3 (11.5-15.5) % Plt Count 376 (150-450) k/uL MPV 6.6 Neutrophils % 73 % Lymphocytes % 10 % Monocytes % 13 % Eosinophils % 2 % Basophils % 0 % Neutrophils # 12.1 H (1.3-7.7) k/uL Lymphocytes # 1.7 (1.0-4.8) k/uL Monocytes # 2.2 H (0-1.0) k/uL Eosinophils # 0.3 (0-0.7) k/uL Basophils # 0.1 (0-0.2) k/uL Sodium 122 L (137-145) mmol/L Potassium 4.8 (3.5-5.1) mmol/L Chloride 79 L (98-107) mmol/L Carbon Dioxide 38 H (22-30) mmol/L Anion Gap 5 mmol/L BUN 13 (7-17) mg/dL Creatinine 0.46 L (0.52-1.04) mg/dL Est GFR (CKD-EPI)AfAm >90 (>60 ml/min/1.73 sqM) Est GFR (CKD-EPI)NonAf >90 (>60 ml/min/1.73 sqM) Glucose 111 H (74-99) mg/dL Calcium 9.3 (8.4-10.2) mg/dL Magnesium 1.2 L (1.6-2.3) mg/dL Total Bilirubin 0.5 (0.2-1.3) mg/dL AST 29 (14-36) U/L ALT 25 (4-34) U/L Alkaline Phosphatase 77 (38-126) U/L Total Protein 5.7 L (6.3-8.2) g/dL Albumin 3.4 L (3.5-5.0) g/dL Urine Color Colorless Urine Appearance Clear (Clear) Urine pH 6.5 (5.0-8.0) Ur Specific [place] 1.007 (1.001-1.035) Urine Protein Negative (Negative) Urine Glucose (UA) Negative (Negative) Urine Ketones Negative (Negative) Urine Blood Negative (Negative) Urine Nitrite Negative (Negative) Urine Bilirubin Negative (Negative) Urine Urobilinogen <2.0 (<2.0) mg/dL Ur Leukocyte Esterase Negative (Negative) Disposition Clinical Impression: Pneumonia, Hyponatremia, Hypomagnesemia, Back pain Disposition: ADMITTED IP TO THIS HOSP Condition: Poor Time of Disposition: 10:42
[2024-10-17] MEDS: SODIUM CHLORIDE 0.9% 500 ML 500 ML IV STA (09:44)
[2024-10-17] MEDS: HYDROmorphone 1 MG/ML 1 ML SYRINGE IVP STA (09:45)
[2024-10-17 09:56] LABS: Basophils # (A) 0.1 k/uL (0-0.2); Basophils % (A) 0 %; Eosinophils # (A) 0.3 k/uL (0-0.7); Eosinophils % (A) 2 %; HCT 40.5 % (34.0-46.0); Lymphocytes # (A) 1.7 k/uL (1.0-4.8); Lymphocytes % (A) 10 %; MCH 29.9 pg (25.0-35.0); MCHC 32.1 g/dL (31.0-37.0); MCV 93.3 fL (80.0-100.0); Mean Platelet Volume 6.6; Monocytes # (A) 2.2 k/uL (0-1.0); Monocytes % (A) 13 %; Neutrophils # (A) 12.1 k/uL (1.3-7.7); Neutrophils % (A) 73 %; Platelet Count 376 k/uL (150-450); RBC 4.34 m/uL (3.80-5.40); RDW 12.3 % (11.5-15.5); WBC 16.7 k/uL (3.8-10.6)
[2024-10-17] MEDS: LORazepam 2 MG/ML INJ IV STA (09:58)
[2024-10-17 10:02] LABS: Appearance,Urine Clear (Clear); Bilirubin,Urine Negative (Negative); Blood,Urine Negative (Negative); Color,Urine Colorless; Glucose,Urine (UA) Negative (Negative); Ketones,Urine Negative (Negative); Leukocyte Esterase,Urine Negative (Negative); Nitrite,Urine Negative (Negative); PH, Urine 6.5 (5.0-8.0); Protein,Urine Negative (Negative); Specific Gravity,Urine 1.007 (1.001-1.035); Urobilinogen,Urine <2.0 mg/dL (<2.0)
[2024-10-17 10:15] LABS: ALT 25 U/L (4-34); AST 29 U/L (14-36); African American GFR (CKD) >90 (>60 ml/min/1.73 sqM); Albumin 3.4 g/dL (3.5-5.0); Alkaline Phosphatase 77 U/L (38-126); Blood Urea Nitrogen 13 mg/dL (7-17); Calcium 9.3 mg/dL (8.4-10.2); Chloride 79 mmol/L (98-107); Glucose 111 mg/dL (74-99); Magnesium 1.2 mg/dL (1.6-2.3); Non-African American GFR(CKD) >90 (>60 ml/min/1.73 sqM); Potassium 4.8 mmol/L (3.5-5.1); Sodium 122 mmol/L (137-145); Total Bilirubin 0.5 mg/dL (0.2-1.3); Total Protein 5.7 g/dL (6.3-8.2)
[2024-10-17 10:21] LABS: Anion Gap 5 mmol/L
[2024-10-17 10:24] LABS: Carbon Dioxide 38 mmol/L (22-30)
--- NOTE | 2024-10-17 10:30 | XR ---
EXAMINATION TYPE: XR chest 2V DATE OF EXAM: 10/17/2024 CLINICAL INDICATION: Female, 69 years old with history of SOB, TECHNIQUE: Frontal and lateral views of the chest are obtained. COMPARISON: Chest x-ray September 22, 2024 FINDINGS: Elevated left hemidiaphragm is redemonstrated. More prominent right mid and lower lung inc reased opacities. Cardiomegaly redemonstrated. The osseous structures are intact. IMPRESSION: Cardiomegaly with increasing right mid to lower lung acute infiltrates and/or atelectasis and tiny right pleural effusion. [facility], , 10/17/2024 10:28 AM
[2024-10-17] MEDS ORDERED: NALOXONE 0.4 MG/ML 1 ML VIAL IV PRN (10:43)
[2024-10-17] MEDS: SODIUM CHLORIDE 0.9% 1,000 ML IV SCH (10:54)
[2024-10-17] MEDS: MAGNESIUM SULFATE-D5W PMX 1 GM in DEXTROSE/WATER 1 100ML.BAG IVPB SCH (11:25)
[2024-10-17] MEDS ORDERED: ALBUTEROL NEBULIZED 2.5 MG/3 ML INHALATION PRN (12:20)
[2024-10-17] MEDS ORDERED: methocarbamoL 750 MG TAB PO PRN (12:20)
--- NOTE | 2024-10-17 12:27 | P.HPIM ---
History of Present Illness H&P Date: 10/17/24 History of present illness: 69-year-old female with past medical history significant for hyponatremia, diastolic CHF, history of chronic back pain, history of COPD on 3 to oxygen at baseline, fibromyalgia, osteoarthritis, history of PE, hypothyroidism, current smoker, marijuana use disorder, history of anxiety, history of nonsustained VT who presented to ER with a complaint of back pain, radiating up and down her back. Patient complained of productive cough and shortness of breath, uses 3 to oxygen at baseline. Patient is poor historian. Continue to complain of anxiety and back pain and continues to ask for the pain medications. Patient denied any fever or chills, denied any sore throat, chest pain, palpitations, nausea vomiting diarrhea constipation abdominal pain dysuria urgency frequency weakness or numbness of extremities. Patient is afebrile, heart rate 60, respiratory rate 16, blood pressure 115/77, saturating 95% on room air. WBC 16.7, hemoglobin 13.0, platelet 376. Sodium 122, potassium 4.8, chloride 79, CO2 38, BUN 13, creatinine 0.46, magnesium 1 point. UA unremarkable. Chest x-ray showed cardiomegaly with increased right mid to lower lung acute infiltrate/atelectasis and tiny right pleural effusion. Assessment and plan: Pneumonia: COPD: Chronic hypoxia: On 3 L oxygen at baseline Patient complained of cough, shortness of breath. Chest x-ray showed cardiomegaly with increased right mid to lower lung acute infiltrate, tiny right pleural effusion Rocephin and doxycycline Continue home inhalers Incentive spirometry Hyponatremia: History of hyponatremia in the past, likely secondary to SIADH Fluid restriction Monitor sodium Resume home sodium tablet IV fluids Hold Lasix Nephrology consult Chronic low back pain: Chronic neck pain: Scoliosis Multilevel cervical spondylosis Cervical canal stenosis Lumbar central canal and neuroforaminal stenosis: Symptomatic treatment Has been seen by orthopedic spine in the past recommended outpatient follow-up. COPD: On 2 to 3 L oxygen at baseline Stable Continue home inhalers Depression/anxiety Has been seen by psychiatry in the past Continue home meds including Effexor, Lamictal, Depakote, Klonopin. DVT prophylaxis Subcutaneous heparin Monitor vital signs and labs Labs and medication were reviewed. Continue same treatment. Further recommendations as per clinical course of the patient PHYSICAL EXAMINATION: GENERAL: The patient is A&O x3, NAD HEENT: EOMI, Sclerae anicteric, Moist Mucous membranes Neck: Supple, Non tender, No JVD PULMONARY: Decreased breath souds B/L, No wheezing, No crackles. CARDIOVASCULAR: S1, S2 present. No murmurs, rubs, or gallops. ABDOMEN: Soft, nontender, nondistended, normoactive bowel sounds. No guarding or rebound tenderness. MUSCULOSKELETAL: No edema, No cyanosis. No clubbing. Normal ROM. Intact peripheral pulses. NEUROLOGICAL: CN 2-12 grossly intact. No FND REVIEW OF SYSTEMS: CONSTITUTIONAL: Complains of fatigue. Anxious. HEENT: No recent visual problems or hearing problems. Denied any sore throat. CARDIOVASCULAR: No chest pain, orthopnea, PND, no palpitations, no syncope. PULMONARY: Complain of shortness of breath, cough. GASTROINTESTINAL: No diarrhea, no nausea, no vomiting, no abdominal pain. NEUROLOGICAL: No headaches, no weakness, no numbness. HEMATOLOGICAL: Denies any bleeding or petechiae. GENITOURINARY: Denies any burning micturition, frequency, or urgency. MUSCULOSKELETAL/RHEUMATOLOGICAL: Complains of back pain, multiple joint pain and muscle aches. ENDOCRINE: Denies any polyuria or polydipsia. The rest of the 14-point review of systems is negative. Dictation was produced using [employer] dictation software. please excuse any grammatical, word or spelling errors. 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 History of Any Multi-Drug Resistant Organisms: MRSA Date of last positivie culture/infection: 03/2024 MDRO Source:: Knee Past Surgical History: Bariatric Surgery, Section, Cholecystectomy, Hysterectomy, Tonsillectomy Additional Past Surgical History / Comment(s): EGD, colonoscopies, gastric bypass, surgery for deviated septum, left cataract removal (having laser procedu re on that eye 11/24/23) Past Anesthesia/Blood Transfusion Reactions: Previous Problems w/ Anesthesia Additional Past Anesthesia/Blood Transfusion Reaction / Comment(s): itching after hysterectomy, some kind of breathing problem after gastric bypass-not sure what happened Past Psychological History: Anxiety, Bipolar, Depression, Panic Disorder Smoking Status: Current every day smoker Past Alcohol Use History: None Reported Past Drug Use History: Marijuana - Past Family History Mother Family Medical History: Congestive Heart Failure (CHF), Hypertension Father History Unknown: Yes Additional Family Medical History / Comment(s): Father at the age of 45 yrs d/t having had rheumatic fever as a child and heart valve disease. Medications and Allergies Home Medications Medication Instructions Recorded Confirmed Type Montelukast [Singulair] 10 mg PO HS 12/17/13 10/17/24 History Levothyroxine Sodium [Synthroid] 150 mcg PO DAILY 03/29/20 10/17/24 History Famotidine [Pepcid] 20 mg PO BID 09/03/21 10/17/24 History Tamsulosin [Flomax] 0.4 mg PO HS 10/26/21 10/17/24 History Ipratropium-Albuterol Nebulize 3 ml INHALATION RT-QID 11/13/22 10/17/24 History [Duoneb 0.5 mg-3 mg/3 ml Soln] Albuterol Inhaler [Ventolin Hfa 2 puff INHALATION RT-QID PRN #1 11/17/22 10/17/24 Rx Inhaler] each clonazePAM [KlonoPIN ODT] 0.25 mg PO HS 12/12/23 10/17/24 History lamoTRIgine [LaMICtal] 100 mg PO BID 03/18/24 10/17/24 History Metoprolol Tartrate [Lopressor] 25 mg PO BID 05/16/24 10/17/24 History Divalproex ER [Depakote ER] 250 mg PO BID #60 tab 05/26/24 10/17/24 Rx Gabapentin 300 mg PO TID 06/01/24 10/17/24 History Acetaminophen Tab [Tylenol] 650 mg PO Q6HR PRN tab 06/02/24 10/17/24 Rx busPIRone HCL [Buspar] 30 mg PO BID 06/09/24 10/17/24 History Furosemide [Lasix] 20 mg PO DAILY #30 tab 06/22/24 10/17/24 Rx Cefdinir [Omnicef] 300 mg PO Q12HR 10/17/24 10/17/24 History Fluticasone/Umeclidin/Vilanter 1 puff INHALATION RT-DAILY 10/17/24 10/17/24 Hi story [Shahana Ellipta 200-62.5-25] Naproxen [EC-Naprosyn] 500 mg PO BID-W/MEALS 10/17/24 10/17/24 History OLANZapine 15 mg PO HS 10/17/24 10/17/24 History Sodium Chloride Tab 1 gm PO DAILY 10/17/24 10/17/24 History Venlafaxine HCl [Effexor XR] 150 mg PO DAILY 10/17/24 10/17/24 History amLODIPine [Norvasc] 5 mg PO DAILY 10/17/24 10/17/24 History lisinopriL [Zestril] 20 mg PO DAILY 10/17/24 10/17/24 History methocarbamoL [Robaxin-750] 750 mg PO BID PRN 10/17/24 10/17/24 History Allergies Allergy/AdvReac Type Severity Reaction Status Date / Time codeine Allergy Unknown Verified 10/17/24 10:39 Childhood Penicillins Allergy Rash/Hives Verified 10/17/24 10:39 Sulfa (Sulfonamide Allergy Rash/Hives Verified 10/17/24 10:39 Antibiotics) Physical Exam Vitals: Vital Signs Temp Pulse Resp BP Pulse Ox 10/17/24 10:07 98 F 76 18 177/81 93 L 10/17/24 09:01 98.6 F 71 20 142/54 90 L Intake and Output 10/16/24 10/17/24 10/17/24 22:59 06:59 14:59 Other: Weight 72.575 kg Results CBC & Chem 7: 10/17/24 09:44 10/17/24 09:44 Labs: Abnormal Lab Results - Last 24 Hours (Table) 10/17/24 10/17/24 Range/Units 09:44 09:44 WBC 16.7 H (3.8-10.6) k/uL Neutrophils # 12.1 H (1.3-7.7) k/uL Monocytes # 2.2 H (0-1.0) k/uL Sodium 122 L (137-145) mmol/L Chloride 79 L (98-107) mmol/L Carbon Dioxide 38 H (22-30) mmol/L Creatinine 0.46 L (0.52-1.04) mg/dL Glucose 111 H (74-99) mg/dL Magnesium 1.2 L (1.6-2.3) mg/dL Total Protein 5.7 L (6.3-8.2) g/dL Albumin 3.4 L (3.5-5.0) g/dL
[2024-10-17] MEDS: DOXYCYCLINE 100 MG TABLET PO SCH (12:44)
[2024-10-17] MEDS: busPIRone HCl 10 MG TAB PO SCH (12:44)
[2024-10-17] MEDS: HYDROcodone/APAP 5-325MG 1 EACH TAB PO PRN (12:45)
[2024-10-17] MEDS: VENLAFAXINE HCL ER 150 MG CAP PO SCH (12:45)
[2024-10-17] MEDS: lamoTRIgine 100 MG TAB PO SCH (12:45)
[2024-10-17] MEDS: amLODIPine 5 MG TAB PO SCH (12:45)
[2024-10-17] MEDS: ONDANSETRON 4 MG/2 ML VIAL IVP PRN (12:46)
[2024-10-17] MEDS: clonazePAM 0.5 MG TAB PO PRN (13:34)
[2024-10-17] MEDS: SODIUM CHLORIDE TAB 1 GM TAB PO SCH (13:59)
[2024-10-17] MEDS: GABAPENTIN 300 MG CAP PO SCH (16:04)
[2024-10-17] MEDS: IPRATROPIUM-ALBUTEROL 3 ML NEB INHALATION SCH (16:16)
[2024-10-17] MEDS: FAMOTIDINE 20 MG TAB PO SCH (22:58)
[2024-10-17] MEDS: METOPROLOL TARTRATE 25 MG TAB PO SCH (22:58)
[2024-10-17] MEDS: MONTELUKAST 10 MG TAB PO SCH (22:58)
[2024-10-17] MEDS: HEPARIN SODIUM,PORCINE 5,000 UNIT/ML 1 ML VIAL SQ SCH (22:59)
[2024-10-17] MEDS: TAMSULOSIN 0.4 MG CAP.ER.24H PO SCH (23:01)
[2024-10-17] MEDS: OLANZapine 7.5 MG TAB PO SCH (23:42)
[2024-10-17] MEDS: DIVALPROEX ER 250 MG TAB.ER.24H PO SCH (23:43)
[2024-10-18] MEDS: LEVOTHYROXINE 75 MCG TAB PO SCH (05:54)
[2024-10-18] MEDS: SYMBICORT 160-4.5 MCG INHALER INHALATION SCH (07:48)
[2024-10-18 08:31] LABS: BUN/Creat Ratio 24.67 Ratio (12.00-20.00); Blood Urea Nitrogen 7.4 mg/dL (9.0-27.0); Calcium 8.5 mg/dL (8.7-10.3); Carbon Dioxide 38.8 mmol/L (21.6-31.8); Chloride 89 mmol/L (96-109); Glucose 70 mg/dL (70-110); Potassium 4.8 mmol/L (3.5-5.5); Sodium 131 mmol/L (135-145)
[2024-10-18 08:52] LABS: HCT 32.7 % (37.2-46.3); HGB 10.3 g/dL (12.0-15.0); MCH 30.6 pg (27.0-32.0); MCHC 31.5 g/dL (32.0-37.0); Mean Platelet Volume 9.1 FL (9.5-12.2); NRBC Per 100 WBC 0 X 10*3/uL (0.00-0.01); Platelet Count 262 X 10*3/uL (140-440); RBC 3.37 X 10*6/uL (4.10-5.20); RDW 12.1 % (11.5-14.5)
[2024-10-18 09:57] LABS: Basophils # (A) 0.05 X 10*3/uL (0.00-0.10); Basophils % (A) 0.5 %; Eosinophils # (A) 0.14 X 10*3/uL (0.04-0.35); Eosinophils % (A) 1.5 %; Lymphocytes # (A) 1.84 X 10*3/uL (0.90-5.00); Monocytes # (A) 1.59 X 10*3/uL (0.20-1.00); Monocytes % (A) 17.3 %; Neutrophils # (A) 5.51 X 10*3/uL (1.80-7.70); Neutrophils % (A) 59.9 %
[2024-10-18] MEDS: MORPHINE SULFATE 2 MG/ML SYRINGE IVP PRN (10:31)
[2024-10-18] MEDS: lisinopriL 20 MG TAB PO SCH (11:07)
[2024-10-18] MEDS ORDERED: guaiFENesin 600 MG TABLET.ER PO PRN (11:43)
[2024-10-18] MEDS: NICOTINE 21MG/24HR PATCH TRANSDERM SCH (11:46)
--- NOTE | 2024-10-18 12:53 | P.PN ---
Subjective Progress Note Date: 10/18/24 Interval History: 69-year-old female with past medical history significant for hyponatremia, diastolic CHF, history of chronic back pain, history of COPD on 3 to oxygen at baseline, fibromyalgia, osteoarthritis, history of PE, hypothyroidism, current smoker, marijuana use disorder, history of anxiety, history of nonsustained VT who presented to ER with a complaint of back pain, radiating up and down her back. Patient complained of productive cough and shortness of breath, uses 3 to oxygen at baseline. Patient is poor historian. Continue to complain of anxiety and back pain and continues to ask for the pain medications. Patient denied any fever or chills, denied any sore throat, chest pain, palpitations, nausea vomiting diarrhea constipation abdominal pain dysuria urgency frequency weakness or numbness of extremities. Patient is afebrile, heart rate 60, respiratory rate 16, blood pressure 115/77, saturating 95% on room air. WBC 16.7, hemoglobin 13.0, platelet 376. Sodium 122, potassium 4.8, chloride 79, CO2 38, BUN 13, creatinine 0.46, magnesium 1 point. UA unremarkable. Chest x-ray showed cardiomegaly with increased right mid to lower lung acute infiltrate/atelectasis and tiny right pleural effusion. 10/18--patient was seen and examined today. Patient is very anxious, complaining of feeling panic attacks. at bedside. Patient was afebrile, heart rate 66, respiratory rate 17, blood pressure 146/70, saturating 95% on 4 L. WBCs 9.2, hemoglobin 10.3, platelet 262. Sodium improved to 131, potassium 4.8, call right 89, CO2 38.8 BUN 7.4 creatinine 0.3. Assessment and plan: Pneumonia: Acute COPD exacerbation: Chronic hypoxia: On 3 L oxygen at baseline Patient complained of cough, shortness of breath. Chest x-ray showed cardiomegaly with increased right mid to lower lung acute infiltrate, tiny right pleural effusion Rocephin and doxycycline Continue home inhalers Solu-Medrol. Incentive spirometry Pulmonary consult. Hyponatremia: Improving History of hyponatremia in the past, likely secondary to SIADH Fluid restriction Monitor sodium Resume home sodium tablet s/p IV fluids. Hold Lasix Nephrology consulted Chronic low back pain: Chronic neck pain: Scoliosis Multilevel cervical spondylosis Cervical canal stenosis Lumbar central canal and neuroforaminal stenosis: Symptomatic treatment Has been seen by orthopedic spine in the past recommended outpatient follow-up. COPD: On 2 to 3 L oxygen at baseline Stable Continue home inhalers Depression/anxiety Has been seen by psychiatry in the past Continue home meds including Effexor, Lamictal, Depakote, Klonopin. DVT prophylaxis Subcutaneous heparin Monitor vital signs and labs Labs and medication were reviewed. Continue same treatment. Further recommendations as per clinical course of the patient PHYSICAL EXAMINATION: GENERAL: The patient is A&O x3, NAD HEENT: EOMI, Sclerae anicteric, Moist Mucous membranes Neck: Supple, Non tender, No JVD PULMONARY: Decreased breath sound bilaterally, bilateral expiratory wheezes. CARDIOVASCULAR: S1, S2 present. No murmurs, rubs, or gallops. ABDOMEN: Soft, nontender, nondistended, normoactive bowel sounds. No guarding or rebound tenderness. MUSCULOSKELETAL: No edema, No cyanosis. No clubbing. Normal ROM. Intact peripheral pulses. NEUROLOGICAL: CN 2-12 grossly intact. No FND Skin: No Rash REVIEW OF SYSTEMS: CONSTITUTIONAL: Complaining of anxiety. CARDIOVASCULAR: No chest pain, palpitations or syncope. PULMONARY: Complaining of shortness breath, cough, congestion. GASTROINTESTINAL: No nausea, vomiting, diarrhea, abdominal pain. : No Dysuria, urgency, frequency. Extremities: No edema. NEUROLOGICAL: No headaches, no weakness, or numbness Dictation was produced using [employer] dictation software. please excuse any grammatical, word or spelling errors. Objective - Vital Signs Vital signs: Vital Signs Temp 98.9 F 10/18/24 07:15 Pulse 80 10/18/24 11:33 Resp 17 10/18/24 07:15 BP 146/70 10/18/24 07:15 Pulse Ox 95 10/18/24 07:49 FiO2 Intake & Output 10/17/24 10/18/24 10/18/24 18:59 06:59 18:59 Intake Total 540 Output Total 700 Balance -160 Weight 72.575 kg 72.575 kg Intake: Oral 540 Output: Urine 700 Other: Voiding Method External Catheter External Catheter - Labs CBC & Chem 7: 10/18/24 03:00 10/18/24 03:00 Labs: Abnormal Lab Results - Last 24 Hours (Table) 10/17/24 10/17/24 10/18/24 Range/Units 12:55 18:38 03:00 RBC 3.37 L (4.10-5.20) X 10*6/uL Hgb 10.3 L (12.0-15.0) g/dL Hct 32.7 L (37.2-46.3) % MCHC 31.5 L (32.0-37.0) g/dL MPV 9.1 L (9.5-12.2) FL Immature Gran # 0.07 H (0.00-0.04) X 10*3/uL Monocytes # 1.59 H (0.20-1.00) X 10*3/uL Sodium 121 L 121 L (137-145) mmol/L Chloride (96-109) mmol/L Carbon Dioxide (21.6-31.8) mmol/L Anion Gap (4.00-12.00) mmol/L BUN (9.0-27.0) mg/dL Creatinine (0.6-1.5) mg/dL BUN/Creatinine Ratio (12.00-20.00) Ratio Calcium (8.7-10.3) mg/dL 10/18/24 Range/Units 03:00 RBC (4.10-5.20) X 10*6/uL Hgb (12.0-15.0) g/dL Hct (37.2-46.3) % MCHC (32.0-37.0) g/dL MPV (9.5-12.2) FL Immature Gran # (0.00-0.04) X 10*3/uL Monocytes # (0.20-1.00) X 10*3/uL Sodium 131 L (137-145) mmol/L Chloride 89 L (96-109) mmol/L Carbon Dioxide 38.8 H (21.6-31.8) mmol/L Anion Gap 3.20 L (4.00-12.00) mmol/L BUN 7.4 L (9.0-27.0) mg/dL Creatinine 0.3 L (0.6-1.5) mg/dL BUN/Creatinine Ratio 24.67 H (12.00-20.00) Ratio Calcium 8.5 L (8.7-10.3) mg/dL
[2024-10-18] MEDS: methylPREDNISolone SOD SUCCI 125 MG/2 ML VIAL IV SCH (13:15)
[2024-10-18] MEDS: guaiFENesin 600 MG TABLET.ER PO SCH (13:15)
[2024-10-18] MEDS: LORazepam 1 MG/0.5 ML VIAL IV ONE (13:26)
--- NOTE | 2024-10-18 13:58 | P.NPCON ---
History of Present Illness - Reason for Consult hyponatremia - History of Present Illness Patient is a 69-year-old female with history of CHF, chronic hyponatremia, hypothyroidism who is admitted to the hospital with complaints of back pain. She was also having a cough associated with shortness of breath. No urinary symptoms Serum sodium was 122 on admission and increased to 131 today. Patient was main tained on normal saline. She has been voiding. No hypotension noted. Depakote and NSAIDs noted on home med list. 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 History of Any Multi-Drug Resistant Organisms: MRSA Date of last positivie culture/infection: 03/2024 MDRO Source:: Knee Past Surgical History: Bariatric Surgery, Section, Cholecystectomy, Hysterectomy, Tonsillectomy Additional Past Surgical History / Comment(s): EGD, colonoscopies, gastric bypass, surgery for deviated septum, left cataract removal (having laser procedure on that eye 11/24/23) Past Anesthesia/Blood Transfusion Reactions: Previous Problems w/ Anesthesia Additional Past Anesthesia/Blood Transfusion Reaction / Comment(s): itching after hysterectomy, some kind of breathing problem after gastric bypass-not sure what happened Smoking Status: Current every day smoker - Past Family History Mother Family Medical History: Congestive Heart Failure (CHF), Hypertension Father History Unknown: Yes Additional Family Medical History / Comment(s): Father at the age of 45 yrs d/t having had rheumatic fever as a child and heart valve disease. Medications and Allergies Home Medications Medication Instructions Recorded Confirmed Type Montelukast [Singulair] 10 mg PO HS 12/17/13 10/17/24 History Levothyroxine Sodium [Synthroid] 150 mcg PO DAILY 03/29/20 10/17/24 History Famotidine [Pepcid] 20 mg PO BID 09/03/21 10/17/24 History Tamsulosin [Flomax] 0.4 mg PO HS 10/26/21 10/17/24 History Ipratropium-Albuterol Nebulize 3 ml INHALATION RT-QID 11/13/22 10/17/24 History [Duoneb 0.5 mg-3 mg/3 ml Soln] Albuterol Inhaler [Ventolin Hfa 2 puff INHALATION RT-QID PRN #1 11/17/22 10/17/24 Rx Inhaler] each clonazePAM [KlonoPIN ODT] 0.25 mg PO HS 12/12/23 10/17/24 History lamoTRIgine [LaMICtal] 100 mg PO BID 03/18/24 10/17/24 History Metoprolol Tartrate [Lopressor] 25 mg PO BID 05/16/24 10/17/24 History Divalproex ER [Depakote ER] 250 mg PO BID #60 tab 05/26/24 10/17/24 Rx Gabapentin 300 mg PO TID 06/01/24 10/17/24 History Acetaminophen Tab [Tylenol] 650 mg PO Q6HR PRN tab 06/02/24 10/17/24 Rx busPIRone HCL [Buspar] 30 mg PO BID 06/09/24 10/17/24 History Furosemide [Lasix] 20 mg PO DAILY #30 tab 06/22/24 10/17/24 Rx Cefdinir [Omnicef] 300 mg PO Q12HR 10/17/24 10/17/24 History Fluticasone/Umeclidin/Vilanter 1 puff INHALATION RT-DAILY 10/17/24 10/17/24 History [Trelegy Ellipta 200-62.5-25] Naproxen [EC-Naprosyn] 500 mg PO BID-W/MEALS 10/17/24 10/17/24 History OLANZapine 15 mg PO HS 10/17/24 10/17/24 History Sodium Chloride Tab 1 gm PO DAILY 10/17/24 10/17/24 History Venlafaxine HCl [Effexor XR] 150 mg PO DAILY 10/17/24 10/17/24 History amLODIPine [Norvasc] 5 mg PO DAILY 10/17/24 10/17/24 History lisinopriL [Zestril] 20 mg PO DAILY 10/17/24 10/17/24 History methocarbamoL [Robaxin-750] 750 mg PO BID PRN 10/17/24 10/17/24 History Allergies Allergy/AdvReac Type Severity Reaction Status Date / Time codeine Allergy Unknown Verified 10/17/24 10:39 Childhood Penicillins Allergy Rash/Hives Verified 10/17/24 10:39 Sulfa (Sulfonamide Allergy Rash/Hives Verified 10/17/24 10:39 Antibiotics) Physical Exam Vitals: Vital Signs Temp Pulse Pulse Resp BP BP Pulse Ox 10/18/24 13:23 99.3 F 75 18 177/77 91 L 10/18/24 11:33 80 10/18/24 11:22 84 10/18/24 08:00 66 10/18/24 07:49 64 95 10/18/24 07:15 98.9 F 64 17 146/70 96 10/18/24 00:42 97.7 F 52 L 15 133/64 97 10/17/24 21:37 97.9 F 68 16 154/74 96 10/17/24 21:30 52 L 10/17/24 21:00 66 18 147/69 97 10/17/24 19:28 70 10/17/24 19:20 65 10/17/24 18:00 69 18 149/70 93 L 10/17/24 16:24 67 10/17/24 16:16 65 10/17/24 15:26 72 20 160/95 94 L Intake and Output 10/17/24 10/18/24 10/18/24 22:59 06:59 14:59 Intake Total 540 Output Total 700 Balance -160 Intake: Oral 540 Output: Urine 700 Other: Voiding Method External Catheter External Catheter Weight 72.575 kg Patient is awake, comfortable, no acute distress Examination of the heart S1 and S2 Examination of the lungs bilateral breath sounds are heard Abdomen is soft nontender Examination of lower extremities shows no significant edema Results - Lab Results Most recent lab results Calcium 8.5 mg/dL (8.7-10.3) L 10/18/24 03:00 Magnesium 1.2 mg/dL (1.6-2.3) L 10/17/24 09:44 10/18/24 03:00 10/18/24 03:00 Assessment and Plan Assessment: 1. Hyponatremia, hypovolemic currently improved significantly with normal saline administration. Urine osmolality 258 and random urine sodium 90. Saline is now discontinued. Post possibly exacerbated by pain. 2. History of hyponatremia previously maintained on sodium chloride tabs 3. Chronic back pain 4. COPD maintained on home oxygen 5. History of depression/anxiety maintained on Effexor Depakote Lamictal Plan: DC normal saline. Repeat sodium later this afternoon Continue with oral sodium chloride tab. May need to discontinue if blood pressure remains elevated. Thank you for the consultation. We will continue to follow the patient with you during her hospitalization.
[2024-10-19 05:04] LABS: Basophils % (A) 0 %; Eosinophils % (A) 0 %; HCT 38.2 % (34.0-46.0); Hypochromasia Slight; Lymphocytes % (A) 10 %; MCH 29.8 pg (25.0-35.0); MCHC 31.5 g/dL (31.0-37.0); MCV 94.5 fL (80.0-100.0); Mean Platelet Volume 6.7; Monocytes # (A) 0.3 k/uL (0-1.0); Monocytes % (A) 3 %; Neutrophils # (A) 8.1 k/uL (1.3-7.7); Neutrophils % (A) 86 %; Platelet Count 341 k/uL (150-450); RBC 4.04 m/uL (3.80-5.40); RDW 12.1 % (11.5-15.5); WBC 9.4 k/uL (3.8-10.6)
[2024-10-19 08:46] LABS: Blood Urea Nitrogen 12.2 mg/dL (9.0-27.0); Calcium 9.1 mg/dL (8.7-10.3); Carbon Dioxide 36.2 mmol/L (21.6-31.8); Chloride 88 mmol/L (96-109); Glucose 258 mg/dL (70-110); Potassium 5.6 mmol/L (3.5-5.5); Sodium 128 mmol/L (135-145)
--- NOTE | 2024-10-19 11:45 | P.PN ---
Subjective Patient is seen for follow-up for hyponatremia. She improved initially with normal saline and sodium is 128 today down from 131 yesterday. Potassium was elevated at 5.6. Currently off of IV fluids Blood pressure is elevated Patient is maintained on sodium chloride tabs which will be discontinued. Objective - Vital Signs Vital signs: Vital Signs Temp 98.5 F 10/19/24 07:40 Pulse 62 10/19/24 09:42 Resp 20 10/19/24 08:30 BP 187/75 10/19/24 07:40 Pulse Ox 94 L 10/19/24 09:31 FiO2 Intake & Output 10/18/24 10/19/24 10/19/24 18:59 06:59 18:59 Intake Total 2160 Output Total 2200 550 Balance -2200 1610 Intake: Oral 2160 Output: Urine 2200 550 Other: Voiding Method External Catheter External Catheter External Catheter # Voids 1,000 - Exam Patient is awake, comfortable, no acute distress Examination of the heart S1 and S2 Examination of the lungs bilateral breath sounds are heard Abdomen is soft nontender Examination of lower extremities shows no significant edema - Labs CBC & Chem 7: 10/19/24 04:12 10/19/24 04:12 Labs: Abnormal Lab Results - Last 24 Hours (Table) 10/19/24 10/19/24 Range/Units 04:12 04:12 Neutrophils # 8.1 H (1.3-7.7) k/uL Sodium 128 L (135-145) mmol/L Potassium 5.6 H (3.5-5.5) mmol/L Chloride 88 L (96-109) mmol/L Carbon Dioxide 36.2 H (21.6-31.8) mmol/L Anion Gap 3.80 L (4.00-12.00) mmol/L Creatinine 0.5 L (0.6-1.5) mg/dL BUN/Creatinine Ratio 24.40 H (12.00-20.00) Ratio Glucose 258 H (70-110) mg/dL Microbiology - Last 24 Hours (Table) 10/17/24 10:53 Blood Culture - Preliminary Blood Assessment and Plan Assessment: 1. Hyponatremia, hypovolemic currently improved significantly with normal saline administration. Urine osmolality 258 and random urine sodium 90. Saline is now discontinued. Possibly exacerbated by pain. Blood pressure is elevated most likely from steroids. The sodium chloride tabs will be held. 2. History of hyponatremia previously maintained on sodium chloride tabs 3. Chronic back pain 4. COPD maintained on home oxygen 5. History of depression/anxiety maintained on Effexor Depakote Lamictal Plan: Continue off of IV fluids IV Lasix x 1 Hold sodium and chloride tabs due to hypotension Hold lisinopril due to hyperkalemia Increase metoprolol if blood pressure remains elevated
--- NOTE | 2024-10-19 11:58 | P.CNPUL ---
History of Present Illness Consult date: 10/18/24 Reason for consult: COPD History of present illness: This is a 69-year-old female patient, known history of COPD with chronic hypoxic respiratory failure maintained on 3 L/min nasal cannula, along with various other medical comorbidities including previous history of pulmonary embolism, hypothyroidism, fibromyalgia, diastolic heart failure, chronic back pain, and chronic smoker both tobacco and marijuana. She also has previous history of no nsustained VT. Patient is a quite poor historian. She presented to the emergency department complaining of back pain. No chest pain. No nausea or emesis. No abdominal pain. She has chronic dyspnea and cough. Upon admission, her sodium level was noted to be at 122. Chloride was 79, bicarb was at 38, BUN was 13 with a creatinine of 0.4. UA was negative. LFTs were normal. Glucose was 111. The white cell count of 16.7 dropped on the 9.2. Hemoglobin is at 13 and a platelet count of 376. Chest x-ray done in the emergency department revealed cardiomegaly with increased right mid/lower lobe opacities consistent with atelectasis/tiny right-sided pleural effusion. Noted, the patient also has chronic elevation of the left hemidiaphragm. Going back to her previous chest x-rays, she did have some atelectatic changes in the right lower lobe and right midlung seen on previous chest x-rays. Currently, the patient is on 3 L of oxygen by nasal cannula with a pulse ox of 92%. Based on a previous CAT scan of the chest done on 04/03/2024, and 06/01/2024, the patient does have chronic COPD, chronic stable mediastinal and right hilar lymphadenopathy dating back to 2019, chronic linear atelectatic changes and scarring in the right lower lobe and chronic elevation of the left Julio diaphragm. She also has a right thyroid lobe nodule measuring 1.8 cm in size. Noted the patient has been hospitalized in the past for a similar episode of hyponatremia. During this current hospitalization, the patient was seen by nephrology. Sodium level has picked up significantly and the most recent level is at 131. Her current IV fluids are at KVO. Review of Systems CONSTITUTIONAL: Denies any recent significant weight loss or weight gain. EYES: Denies change in vision. EARS, NOSE, MOUTH, THROAT: Denies headaches, denies sore throat. CARDIOVASCULAR: Denies chest pain, palpitations or syncopal episodes. RESPIRATORY: Positive for shortness of breath, cough, congestion no hemoptysis. GASTROINTESTINAL: Denies change in appetite, denies abdominal pain GENITOURINARY: Denies hematuria, denies infections. MUSKULOSKELETAL: Denies pain, denies swelling. INTEGUMENTARY: Denies rash, denies eczema. NEUROLOGICAL: Denies recent memory loss, no recent seizure activity. PSYCHIATRIC: Positive for anxiety. HEMATOLOGIC/LYMPHATIC: Denies anemia, denies enlarged lymph nodes. Past Medical History Past Medical History: Asthma, Heart Failure, COPD, Fibromyalgia, GERD/Reflux, Hypertension, Osteoarthritis (OA), Pneumonia, Pulmonary Embolus (PE), Skin Disorder, Thyroid Disorder Additional Past Medical History / Comment(s): Spinal Stenosis, Cervical disc disease/stenosis, scoliosis, numbness/tingling L side of face/neck, hx of L hemidiaphragmatic elevation-possibly genetic, recently bronchitis and past bron chitis, electrolyte problem/kidney function being affected, hx of pulmonary emboli, past bilateral lower extremity cellulitis, edema lower extremities, IBS, hemorrhoids, benign colon polyps, sinus problems, UTIs, bacteremia/sepsis, cardiac murmur, past L ankle and L wrist fractures. History of Any Multi-Drug Resistant Organisms: MRSA Date of last positivie culture/infection: 03/2024 MDRO Source:: Knee Past Surgical History: Bariatric Surgery, Section, Cholecystectomy, Hysterectomy, Tonsillectomy Additional Past Surgical History / Comment(s): EGD, colonoscopies, gastric bypass, surgery for deviated septum, left cataract removal (having laser procedure on that eye 11/24/23) Past Anesthesia/Blood Transfusion Reactions: Previous Problems w/ Anesthesia Additional Past Anesthesia/Blood Transfusion Reaction / Comment(s): itching after hysterectomy, some kind of breathing problem after gastric bypass-not sure what happened Smoking Status: Current every day smoker - Past Family History Mother Family Medical History: Congestive Heart Failure (CHF), Hypertension Father History Unknown: Yes Additional Family Medical History / Comment(s): Father at the age of 45 yrs d/t having had rheumatic fever as a child and heart valve disease. Medications and Allergies Home Medications Medication Instructions Recorded Confirmed Type Montelukast [Singulair] 10 mg PO HS 12/17/13 10/17/24 History Levothyroxine Sodium [Synthroid] 150 mcg PO DAILY 03/29/20 10/17/24 History Famotidine [Pepcid] 20 mg PO BID 09/03/21 10/17/24 History Tamsulosin [Flomax] 0.4 mg PO HS 10/26/21 10/17/24 History Ipratropium-Albuterol Nebulize 3 ml INHALATION RT-QID 11/13/22 10/17/24 History [Duoneb 0.5 mg-3 mg/3 ml Soln] Albuterol Inhaler [Ventolin Hfa 2 puff INHALATION RT-QID PRN #1 11/17/22 10/17/24 Rx Inhaler] each clonazePAM [KlonoPIN ODT] 0.25 mg PO HS 12/12/23 10/17/24 History lamoTRIgine [LaMICtal] 100 mg PO BID 03/18/24 10/17/24 History Metoprolol Tartrate [Lopressor] 25 mg PO BID 05/16/24 10/17/24 History Divalproex ER [Depakote ER] 250 mg PO BID #60 tab 05/26/24 10/17/24 Rx Gabapentin 300 mg PO TID 06/01/24 10/17/24 History Acetaminophen Tab [Tylenol] 650 mg PO Q6HR PRN tab 06/02/24 10/17/24 Rx busPIRone HCL [Buspar] 30 mg PO BID 06/09/24 10/17/24 History Furosemide [Lasix] 20 mg PO DAILY #30 tab 06/22/24 10/17/24 Rx Cefdinir [Omnicef] 300 mg PO Q12HR 10/17/24 10/17/24 History Fluticasone/Umeclidin/Vilanter 1 puff INHALATION RT-DAILY 10/17/24 10/17/24 History [Trelegy Ellipta 200-62.5-25] Naproxen [EC-Naprosyn] 500 mg PO BID-W/MEALS 10/17/24 10/17/24 History OLANZapine 15 mg PO HS 10/17/24 10/17/24 History Sodium Chloride Tab 1 gm PO DAILY 10/17/24 10/17/24 History Venlafaxine HCl [Effexor XR] 150 mg PO DAILY 10/17/24 10/17/24 History amLODIPine [Norvasc] 5 mg PO DAILY 10/17/24 10/17/24 History lisinopriL [Zestril] 20 mg PO DAILY 10/17/24 10/17/24 History methocarbamoL [Robaxin-750] 750 mg PO BID PRN 10/17/24 10/17/24 History Allergies Allergy/AdvReac Type Severity Reaction Status Date / Time codeine Allergy Unknown Verified 10/17/24 10:39 Childhood Penicillins Allergy Rash/Hives Verified 10/17/24 10:39 Sulfa (Sulfonamide Allergy Rash/Hives Verified 10/17/24 10:39 Antibiotics) Physical Exam Vitals: Vital Signs Temp Pulse Pulse Resp BP BP Pulse Ox 10/18/24 13:58 98.3 F 76 18 120/67 92 L 10/18/24 13:23 99.3 F 75 18 177/77 91 L 10/18/24 11:33 80 10/18/24 11:22 84 10/18/24 08:00 66 10/18/24 07:49 64 95 10/18/24 07:15 98.9 F 64 17 146/70 96 10/18/24 00:42 97.7 F 52 L 15 133/64 97 10/17/24 21:37 97.9 F 68 16 154/74 96 10/17/24 21:30 52 L 10/17/24 21:00 66 18 147/69 97 10/17/24 19:28 70 10/17/24 19:20 65 10/17/24 18:00 69 18 149/70 93 L Intake and Output 10/18/24 10/18/24 10/18/24 06:59 14:59 22:59 Intake Total 540 Output Total 700 Balance -160 Intake: Oral 540 Output: Urine 700 Other: Voiding Method External Catheter GENERAL EXAM: Alert, anxious 69-year-old female, on 3 L nasal cannula, fairly comfortable in no apparent distress. HEAD: Normocephalic. EYES: Normal reaction of pupils, equal size. NOSE: Clear with pink turbinates. THROAT: No erythema or exudates. NECK: No masses, no JVD. CHEST: No chest wall deformity. LUNGS: Equal air entry with bilateral scattered rhonchi. CVS: S1 and S2 normal with no audible murmur, regular rhythm. ABDOMEN: No hepatosplenomegaly, normal bowel sounds, no guarding or rigidity. SPINE: No scoliosis or deformity SKIN: No rashes, healing wound in the right hogan, no active drainage or abscess CENTRAL NERVOUS SYSTEM: No focal deficits, tone is normal in all 4 extremities. EXTREMITIES: There is no peripheral edema. No clubbing, no cyanosis. Peripheral pulses are intact. Results - Laboratory Findings CBC and BMP: 10/18/24 03:00 10/18/24 03:00 Abnormal lab findings: Abnormal Labs 10/17/24 10/17/24 10/17/24 09:44 09:44 12:55 WBC 16.7 H RBC Hgb Hct MCHC MPV Immature Gran # Neutrophils # 12.1 H Monocytes # 2.2 H Sodium 122 L 121 L Chloride 79 L Carbon Dioxide 38 H Anion Gap BUN Creatinine 0.46 L BUN/Creatinine Ratio Glucose 111 H Calcium Magnesium 1.2 L Total Protein 5.7 L Albumin 3.4 L 10/17/24 10/18/24 10/18/24 18:38 03:00 03:00 WBC RBC 3.37 L Hgb 10.3 L Hct 32.7 L MCHC 31.5 L MPV 9.1 L Immature Gran # 0.07 H Neutrophils # Monocytes # 1.59 H Sodium 121 L 131 L Chloride 89 L Carbon Dioxide 38.8 H Anion Gap 3.20 L BUN 7.4 L Creatinine 0.3 L BUN/Creatinine Ratio 24.67 H Glucose Calcium 8.5 L Magnesium Total Protein Albumin Assessment and Plan Plan: Acute hypochloremic hyponatremia,, recurrent. Could be hypovolemic. Also consider drug-induced. Nephrology on the case. Sodium level has normalized. Patient presented with a sodium level of 121 and her current sodium levels at 131. No altered mentation. IV fluids have been discontinued by nephrology. Chronic hypoxemic respiratory failure, maintained on 3 L of oxygen by nasal cannula Advanced COPD, stable, on home oxygen ar 3 liters/min Chronic stable mediastinal lymphadenopathy, dating back to 2019 Chronic left hemidiaphragmatic elevation contributing to her chronic shortness of breath Chronic right basilar scarring as noted on follow-up chest x-ray done during this current hospitalization. Bipolar disorder with anxiety Fibromyalgia History of chronic tobacco dependence Hypothyroidism History of hypertension History of marijuana use Cervical spinal stenosis Scoliosis Irritable bowel syndrome History of colonic polyps Previous history of urine tract infection with Enterococcus History of gastric bypass surgery Plan: Chest x-ray findings are stable and unchanged and chronic. No need for antibiotic coverage at this point in time. Continue Symbicort and DuoNeb updrafts [id number] IV fluids to KVO Sodium level is improved, level is up to 121 with a sodium of 131 No altered mentation Consult nephrology is appreciated Titrate the FiO2 as tolerated, currently on 3 L Educated regarding the importance of smoking cessation NicoDerm patch has been offered Continue Lamictal and Depakote, BuSpar and Klonopin Continue the combination Effexor and Zyprexa Will follow
[2024-10-19] MEDS: FUROSEMIDE 10 MG/ML 2 ML VIAL IV ONE (12:15)
--- NOTE | 2024-10-19 14:28 | P.PN ---
Subjective Interval History: 69-year-old female with past medical history significant for hyponatremia, diastolic CHF, history of chronic back pain, history of COPD on 3 to oxygen at baseline, fibromyalgia, osteoarthritis, history of PE, hypothyroidism, current smoker, marijuana use disorder, history of anxiety, history of nonsustained VT who presented to ER with a complaint of back pain, radiating up and down her back. Patient complained of productive cough and shortness of breath, uses 3 to oxygen at baseline. Patient is poor historian. Continue to complain of anxiety and back pain and continues to ask for the pain medications. Patient denied any fever or chills, denied any sore throat, chest pain, palpitations, nausea vomiting diarrhea constipation abdominal pain dysuria urgency frequency weakness or numbness of extremities. Patient is afebrile, heart rate 60, respiratory rate 16, blood pressure 115/77, saturating 95% on room air. WBC 16.7, hemoglobin 13.0, platelet 376. Sodium 122, potassium 4.8, chloride 79, CO2 38, BUN 13, creatinine 0.46, magnesium 1 point. UA unremarkable. Chest x-ray showed cardiomegaly with increased right mid to lower lung acute infiltrate/atelectasis and tiny right pleural effusion. 10/18--patient was seen and examined today. Patient is very anxious, complaining of feeling panic attacks. at bedside. Patient was afebrile, heart rate 66, respiratory rate 17, blood pressure 146/70, saturating 95% on 4 L. WBCs 9.2, hemoglobin 10.3, platelet 262. Sodium improved to 131, potassium 4.8, call right 89, CO2 38.8 BUN 7.4 creatinine 0.3. 10/19--- patient was seen and examined today. Patient is very anxious, afebrile, heart rate 80, respiratory rate 19, blood pressure 166/71, saturating 95% on 4 L. WBCs 9.4, hemoglobin 12.0, platelet 341. Sodium 128 potassium 5.6, BUN 12.2, creatinine 0.5. Pulmonary and nephrology following. Discontinue Rocephin, remains on doxycycline. On inhaler bronchodilator protocol and Solu- Medrol. Nephrology recommended to hold off IV fluids, one-time IV Lasix today. Hold lisinopril for elevated potassium. Assessment and plan: Pneumonia: Acute COPD exacerbation: Chronic hypoxia: On 3 L oxygen at baseline Patient complained of cough, shortness of breath. Chest x-ray showed cardiomegaly with increased right mid to lower lung acute infiltrate, tiny right pleural effusion Doxycycline. Rocephin discontinued. Continue home inhalers Solu-Medrol. Incentive spirometry Pulmonary consulted Hyponatremia: Improving History of hyponatremia in the past, likely secondary to SIADH Fluid restriction Monitor sodium Resume home sodium tablet s/p IV fluids. Held Lasix Nephrology consulted--initially received IV fluids, now off IV fluids, IV Lasix one-time dose 10/19. Hyperkalemia: Hold lisinopril Monitor renal function IV Lasix one-time dose. Chronic low back pain: Chronic neck pain: Scoliosis Multilevel cervical spondylosis Cervical canal stenosis Lumbar central canal and neuroforaminal stenosis: Symptomatic treatment Has been seen by orthopedic spine in the past recommended outpatient follow-up. Depression/anxiety Has been seen by psychiatry in the past Continue home meds including Effexor, Lamictal, Depakote, Klonopin. DVT prophylaxis Subcutaneous heparin Monitor vital signs and labs Labs and medication were reviewed. Continue same treatment. Further recommendations as per clinical course of the patient PHYSICAL EXAMINATION: GENERAL: The patient is A&O x3, NAD HEENT: EOMI, Sclerae anicteric, Moist Mucous membranes Neck: Supple, Non tender, No JVD PULMONARY: Decreased breath sound bilaterally, bilateral expiratory wheezes. CARDIOVASCULAR: S1, S2 present. No murmurs, rubs, or gallops. ABDOMEN: Soft, nontender, nondistended, normoactive bowel sounds. No guarding or rebound tenderness. MUSCULOSKELETAL: No edema, No cyanosis. No clubbing. Normal ROM. Intact peripheral pulses. NEUROLOGICAL: CN 2-12 grossly intact. No FND Skin: No Rash REVIEW OF SYSTEMS: CONSTITUTIONAL: Complaining of anxiety. CARDIOVASCULAR: No chest pain, palpitations or syncope. PULMONARY: Complaining of shortness breath, cough, congestion. GASTROINTESTINAL: No nausea, vomiting, diarrhea, abdominal pain. : No Dysuria, urgency, frequency. Extremities: No edema. NEUROLOGICAL: No headaches, no weakness, or numbness Dictation was produced using [employer] dictation software. please excuse any grammatical, word or spelling errors. Objective - Vital Signs Vital signs: Vital Signs Temp 98.4 F 10/19/24 13:40 Pulse 80 10/19/24 13:40 Resp 19 10/19/24 13:40 BP 166/71 10/19/24 13:40 Pulse Ox 95 10/19/24 13:40 FiO2 Intake & Output 10/18/24 10/19/24 10/19/24 18:59 06:59 18:59 Intake Total 2160 Output Total 2200 550 Balance -2200 1610 Intake: Oral 2160 Output: Urine 2200 550 Other: Voiding Method External Catheter External Catheter External Catheter # Voids 1,000 - Labs CBC & Chem 7: 10/19/24 04:12 10/19/24 04:12 Labs: Abnormal Lab Results - Last 24 Hours (Table) 10/19/24 10/19/24 Range/Units 04:12 04:12 Neutrophils # 8.1 H (1.3-7.7) k/uL Sodium 128 L (135-145) mmol/L Potassium 5.6 H (3.5-5.5) mmol/L Chloride 88 L (96-109) mmol/L Carbon Dioxide 36.2 H (21.6-31.8) mmol/L Anion Gap 3.80 L (4.00-12.00) mmol/L Creatinine 0.5 L (0.6-1.5) mg/dL BUN/Creatinine Ratio 24.40 H (12.00-20.00) Ratio Glucose 258 H (70-110) mg/dL Microbiology - Last 24 Hours (Table) 10/17/24 10:53 Blood Culture - Preliminary Blood
[2024-10-19] MEDS: amLODIPine 5 MG TAB PO SCH (21:01)
--- NOTE | 2024-10-19 23:20 | P.PN ---
Subjective Progress Note Date: 10/19/24 This is a 69-year-old female patient, known history of COPD with chronic hypoxic respiratory failure maintained on 3 L/min nasal cannula, along with various other medical comorbidities including previous history of pulmonary embolism, hypothyroidism, fibromyalgia, diastolic heart failure, chronic back pain, and chronic smoker both tobacco and marijuana. She also has previous history of nonsustained VT. Patient is a quite poor historian. She presented to the emergency department complaining of back pain. No chest pain. No nausea or emesis. No abdominal pain. She has chronic dyspnea and cough. Upon admission, her sodium level was noted to be at 122. Chloride was 79, bicarb was at 38, BUN was 13 with a creatinine of 0.4. UA was negative. LFTs were normal. Glucose was 111. The white cell count of 16.7 dropped on the 9.2. Hemoglobin is at 13 and a platelet count of 376. Chest x-ray done in the emergency department revealed cardiomegaly with increased right mid/lower lobe opacities consistent with atelectasis/tiny right-sided pleural effusion. Noted, the patient also has chronic elevation of the left hemidiaphragm. Going back to her previous chest x-rays, she did have some atelectatic changes in the right lower lobe and right midlung seen on previous chest x-rays. Currently, the patient is on 3 L of oxygen by nasal cannula with a pulse ox of 92%. Based on a previous CAT scan of the chest done on 04/03/2024, and 06/01/2024, the patient does have chronic COPD, chronic stable mediastinal and right hilar lymphadenopathy dating back to 2019, chronic linear atelectatic changes and scarring in the right lower lobe and chronic elevation of the left Julio diaphragm. She also has a right thyroid lobe nodule measuring 1.8 cm in size. Noted the patient has been hospitalized in the past for a similar episode of hyponatremia. During this current hospitalization, the patient was seen by nephrology. Sodium level has picked up significantly and the most recent level is at 131. Her current IV fluids are at KVO. On 10/19/2024, the patient's condition is stable. She is a bit anxious. She has chronic cough and dyspnea. No objective evidence of pneumonia based on my rev iew of the chest x-ray and comparing it to the older and previous chest x-ray and CAT scans. Await records at 9.4 with a hemoglobin of 12 and a platelet count of 341. Sodium levels at 128, nephrology is following the patient is chronic hyponatremia. K level is at 5.6. BUN is 12 with a creatinine of 0.5. Antibiotics can be discontinued. She remains on DuoNeb updrafts. She remains on IV Solu-Medrol and we are looking into tapering the patient to a prednisone burst taper over the next 24 hours. Objective - Vital Signs Vital signs: Vital Signs Temp 98.5 F 10/19/24 07:40 Pulse 62 10/19/24 09:42 Resp 20 10/19/24 08:30 BP 187/75 10/19/24 07:40 Pulse Ox 94 L 10/19/24 09:31 FiO2 Intake & Output 10/18/24 10/19/24 10/19/24 18:59 06:59 18:59 Intake Total 2160 Output Total 2200 550 Balance -2200 1610 Intake: Oral 2160 Output: Urine 2200 550 Other: Voiding Method External Catheter External Catheter External Catheter # Voids 1,000 - Exam GENERAL EXAM: Alert, anxious 69-year-old female, on 3 L nasal cannula, fairly comfortable in no apparent distress. HEAD: Normocephalic. EYES: Normal reaction of pupils, equal size. NOSE: Clear with pink turbinates. THROAT: No erythema or exudates. NECK: No masses, no JVD. CHEST: No chest wall deformity. LUNGS: Equal air entry with bilateral scattered rhonchi. CVS: S1 and S2 normal with no audible murmur, regular rhythm. ABDOMEN: No hepatosplenomegaly, normal bowel sounds, no guarding or rigidity. SPINE: No scoliosis or deformity SKIN: No rashes, healing wound in the right hogan, no active drainage or abscess CENTRAL NERVOUS SYSTEM: No focal deficits, tone is normal in all 4 extremities. EXTREMITIES: There is no peripheral edema. No clubbing, no cyanosis. Per ipheral pulses are intact. - Labs CBC & Chem 7: 10/19/24 04:12 10/19/24 15:51 Labs: Abnormal Lab Results - Last 24 Hours (Table) 10/19/24 10/19/24 Range/Units 04:12 04:12 Neutrophils # 8.1 H (1.3-7.7) k/uL Sodium 128 L (135-145) mmol/L Potassium 5.6 H (3.5-5.5) mmol/L Chloride 88 L (96-109) mmol/L Carbon Dioxide 36.2 H (21.6-31.8) mmol/L Anion Gap 3.80 L (4.00-12.00) mmol/L Creatinine 0.5 L (0.6-1.5) mg/dL BUN/Creatinine Ratio 24.40 H (12.00-20.00) Ratio Glucose 258 H (70-110) mg/dL Microbiology - Last 24 Hours (Table) 10/17/24 10:53 Blood Culture - Preliminary Blood Assessment and Plan Plan: Acute hypochloremic hyponatremia,, recurrent. Could be hypovolemic. Also consider drug-induced. Nephrology on the case. Sodium level has normalized. Patient presented with a sodium level of 121 and her current sodium levels at 128. No altered mentation. IV fluids have been discontinued by nephrology. Chronic hypoxemic respiratory failure, maintained on 3 L of oxygen by nasal cannula Advanced COPD, stable, on home oxygen ar 3 liters/min Chronic stable mediastinal lymphadenopathy, dating back to 2019 Chronic left hemidiaphragmatic elevation contributing to her chronic shortness of breath Chronic right basilar scarring as noted on follow-up chest x-ray done during this current hospitalization. Bipolar disorder with anxiety Fibromyalgia History of chronic tobacco dependence Hypothyroidism History of hypertension History of marijuana use Cervical spinal stenosis Scoliosis Irritable bowel syndrome History of colonic polyps Previous history of urine tract infection with Enterococcus History of gastric bypass surgery Plan: Chest x-ray findings are stable and unchanged and chronic. No need for antibiotic coverage at this point in time. Continue Symbicort and DuoNeb updrafts [id number] Will put the patient on prednisone burst taper as of tomorrow Antibiotic can be discontinued IV fluids to KVO Sodium level is improved No altered mentation Consult nephrology is appreciated Titrate the FiO2 as tolerated, currently on 3 L Educated regarding the importance of smoking cessation NicoDerm patch has been offered Continue Lamictal and Depakote, BuSpar and Klonopin Continue the combination Effexor and Zyprexa Will follow
[2024-10-20] MEDS: ZINC OXIDE PASTE (Z-GUARD) 1 APPLIC TOPICAL PRN (05:11)
[2024-10-20 08:46] LABS: Blood Urea Nitrogen 17.5 mg/dL (9.0-27.0); Calcium 9.8 mg/dL (8.7-10.3); Chloride 90 mmol/L (96-109); Glucose 271 mg/dL (70-110); Potassium 4.8 mmol/L (3.5-5.5); Sodium 132 mmol/L (135-145)
[2024-10-20 08:49] LABS: Basophils # (A) 0.04 X 10*3/uL (0.00-0.10); Basophils % (A) 0.2 %; Eosinophils # (A) 0 X 10*3/uL (0.04-0.35); Eosinophils % (A) 0 %; HCT 39.9 % (37.2-46.3); HGB 12.8 g/dL (12.0-15.0); Lymphocytes # (A) 0.88 X 10*3/uL (0.90-5.00); Lymphocytes % (A) 4.9 %; MCH 30.2 pg (27.0-32.0); MCHC 32.1 g/dL (32.0-37.0); MCV 94.1 FL (80.0-97.0); Mean Platelet Volume 8.9 FL (9.5-12.2); Monocytes # (A) 0.82 X 10*3/uL (0.20-1.00); Monocytes % (A) 4.5 %; NRBC Per 100 WBC 0 X 10*3/uL (0.00-0.01); Neutrophils # (A) 16.13 X 10*3/uL (1.80-7.70); Neutrophils % (A) 89.1 %; Platelet Count 427 X 10*3/uL (140-440); RBC 4.24 X 10*6/uL (4.10-5.20); RDW 11.8 % (11.5-14.5)
--- NOTE | 2024-10-20 15:20 | P.PN ---
Subjective Interval History: 69-year-old female with past medical history significant for hyponatremia, diastolic CHF, history of chronic back pain, history of COPD on 3 to oxygen at baseline, fibromyalgia, osteoarthritis, history of PE, hypothyroidism, current smoker, marijuana use disorder, history of anxiety, history of nonsustained VT who presented to ER with a complaint of back pain, radiating up and down her back. Patient complained of productive cough and shortness of breath, uses 3 to oxygen at baseline. Patient is poor historian. Continue to complain of anxiety and back pain and continues to ask for the pain medications. Patient denied any fever or chills, denied any sore throat, chest pain, palpitations, nausea vomiting diarrhea constipation abdominal pain dysuria urgency frequency weakness or numbness of extremities. Patient is afebrile, heart rate 60, respiratory rate 16, blood pressure 115/77, saturating 95% on room air. WBC 16.7, hemoglobin 13.0, platelet 376. Sodium 122, potassium 4.8, chloride 79, CO2 38, BUN 13, creatinine 0.46, magnesium 1 point. UA unremarkable. Chest x-ray showed cardiomegaly with increased right mid to lower lung acute infiltrate/atelectasis and tiny right pleural effusion. 10/18--patient was seen and examined today. Patient is very anxious, complaining of feeling panic attacks. at bedside. Patient was afebrile, heart rate 66, respiratory rate 17, blood pressure 146/70, saturating 95% on 4 L. WBCs 9.2, hemoglobin 10.3, platelet 262. Sodium improved to 131, potassium 4.8, call right 89, CO2 38.8 BUN 7.4 creatinine 0.3. 10/19--- patient was seen and examined today. Patient is very anxious, afebrile, heart rate 80, respiratory rate 19, blood pressure 166/71, saturating 95% on 4 L. WBCs 9.4, hemoglobin 12.0, platelet 341. Sodium 128 potassium 5.6, BUN 12.2, creatinine 0.5. Pulmonary and nephrology following. Discontinue Rocephin, remains on doxycycline. On inhaler bronchodilator protocol and Solu- Medrol. Nephrology recommended to hold off IV fluids, one-time IV Lasix today. Hold lisinopril for elevated potassium. 10/20--- patient was seen and examined today. Anxiety is better today. Patient is afebrile, heart rate 69, respiratory rate 20, blood pressure 153/70, saturating 91% on 3 L. WBCs 18.1 secondary to Solu-Medrol. Hemoglobin 12.8, platelet 427. Sodium better today 132. Potassium 4.8, chloride 90, CO2 34, BUN 17, creatinine 0.5. Received 1 dose of IV Lasix yesterday, sodium improved to 132 today. Nephrology following. Home bronchodilator protocol with inhalers, on IV Solu-Medrol. Pulmonary following. Assessment and plan: Pneumonia: Acute COPD exacerbation: Chronic hypoxia: On 3 L oxygen at baseline Patient complained of cough, shortness of breath. Chest x-ray showed cardiomegaly with increased right mid to lower lung acute infiltrate, tiny right pleural effusion Doxycycline. Rocephin discontinued. Continue home inhalers Solu-Medrol. Incentive spirometry Pulmonary consulted Hyponatremia: Improving History of hyponatremia in the past, likely secondary to SIADH Fluid restriction Monitor sodium Resume home sodium tablet s/p IV fluids. Held Lasix Nephrology consulted--initially received IV fluids, now off IV fluids, IV Lasix one-time dose 10/19. Hyperkalemia: Hold lisinopril Monitor renal function IV Lasix one-time dose. Chronic low back pain: Chronic neck pain: Scoliosis Multilevel cervical spondylosis Cervical canal stenosis Lumbar central canal and neuroforaminal stenosis: Symptomatic treatment Has been seen by orthopedic spine in the past recommended outpatient follow-up. Depression/anxiety Has been seen by psychiatry in the past Continue home meds including Effexor, Lamictal, Depakote, Klonopin. DVT prophylaxis Subcutaneous heparin Monitor vital signs and labs Labs and medication were reviewed. Continue same treatment. Further recommendations as per clinical course of the patient PHYSICAL EXAMINATION: GENERAL: The patient is A&O x3, NAD HEENT: EOMI, Sclerae anicteric, Moist Mucous membranes Neck: Supple, Non tender, No JVD PULMONARY: Decreased breath sound bilaterally, bilateral expiratory wheezes. CARDIOVASCULAR: S1, S2 present. No murmurs, rubs, or gallops. ABDOMEN: Soft, nontender, nondistended, normoactive bowel sounds. No guarding or rebound tenderness. MUSCULOSKELETAL: No edema, No cyanosis. No clubbing. Normal ROM. Intact peripheral pulses. NEUROLOGICAL: CN 2-12 grossly intact. No FND Skin: No Rash REVIEW OF SYSTEMS: CONSTITUTIONAL: Complaining of anxiety. CARDIOVASCULAR: No chest pain, palpitations or syncope. PULMONARY: Complaining of shortness breath, cough, congestion. GASTROINTESTINAL: No nausea, vomiting, diarrhea, abdominal pain. : No Dysuria, urgency, frequency. Extremities: No edema. NEUROLOGICAL: No headaches, no weakness, or numbness Dictation was produced using [employer] dictation software. please excuse any grammatical, word or spelling errors. Objective - Vital Signs Vital signs: Vital Signs Temp 98.6 F 10/20/24 13:34 Pulse 69 10/20/24 13:34 Resp 20 10/20/24 13:34 BP 153/70 10/20/24 13:34 Pulse Ox 91 L 10/20/24 13:34 FiO2 Intake & Output 10/19/24 10/20/24 10/20/24 18:59 06:59 18:59 Output Total 1100 250 Balance -1100 -250 Output: Urine 1100 250 Other: Voiding Method External Catheter External Catheter External Catheter - Labs CBC & Chem 7: 10/20/24 05:31 10/20/24 05:31 Labs: Abnormal Lab Results - Last 24 Hours (Table) 10/19/24 10/20/24 10/20/24 Range/Units 15:51 05:31 05:31 WBC 18.10 H (4.50-10.00) X 10*3/uL MPV 8.9 L (9.5-12.2) FL Immature Gran # 0.23 H (0.00-0.04) X 10*3/uL Neutrophils # 16.13 H (1.80-7.70) X 10*3/uL Lymphocytes # 0.88 L (0.90-5.00) X 10*3/uL Eosinophils # 0 L (0.04-0.35) X 10*3/uL Sodium 128 L 132 L (137-145) mmol/L Chloride 90 L (96-109) mmol/L Carbon Dioxide 34.0 H (21.6-31.8) mmol/L Creatinine 0.5 L (0.6-1.5) mg/dL BUN/Creatinine Ratio 35.00 H (12.00-20.00) Ratio Glucose 271 H (70-110) mg/dL Microbiology - Last 24 Hours (Table) 10/17/24 10:53 Blood Culture - Preliminary Blood
--- NOTE | 2024-10-20 16:10 | P.PN ---
Subjective Patient is seen for follow-up for hyponatremia. She improved initially with normal saline and sodium had dropped to 128. IV fluids were discontinued and patient received IV Lasix. Sodium has improved to 132 today. Currently off of IV fluids Blood pressure has been elevated and sodium chloride tablets have been discontinued. Objective - Vital Signs Vital signs: Vital Signs Temp 98.6 F 10/20/24 13:34 Pulse 69 10/20/24 13:34 Resp 20 10/20/24 13:34 BP 153/70 10/20/24 13:34 Pulse Ox 91 L 10/20/24 13:34 FiO2 Intake & Output 10/19/24 10/20/24 10/20/24 18:59 06:59 18:59 Output Total 1100 250 Balance -1100 -250 Output: Urine 1100 250 Other: Voiding Method External Catheter External Catheter External Catheter - Exam Patient is awake, comfortable, no acute distress Examination of the heart S1 and S2 Examination of the lungs bilateral breath sounds are heard Abdomen is soft nontender Examination of lower extremities shows trace edema - Labs CBC & Chem 7: 10/20/24 05:31 10/20/24 05:31 Labs: Abnormal Lab Results - Last 24 Hours (Table) 10/19/24 10/20/24 10/20/24 Range/Units 15:51 05:31 05:31 WBC 18.10 H (4.50-10.00) X 10*3/uL MPV 8.9 L (9.5-12.2) FL Immature Gran # 0.23 H (0.00-0.04) X 10*3/uL Neutrophils # 16.13 H (1.80-7.70) X 10*3/uL Lymphocytes # 0.88 L (0.90-5.00) X 10*3/uL Eosinophils # 0 L (0.04-0.35) X 10*3/uL Sodium 128 L 132 L (137-145) mmol/L Chloride 90 L (96-109) mmol/L Carbon Dioxide 34.0 H (21.6-31.8) mmol/L Creatinine 0.5 L (0.6-1.5) mg/dL BUN/Creatinine Ratio 35.00 H (12.00-20.00) Ratio Glucose 271 H (70-110) mg/dL Microbiology - Last 24 Hours (Table) 04/01/25 10:53 Blood Culture - Preliminary Blood Assessment and Plan Assessment: 1. Hyponatremia, hypovolemic initially improved with saline. Sodium had dropped to 128 and IV fluids have been discontinued. Patient received a dose of Lasix yesterday and her sodium is up to 132 today. Urine osmolality 258 and random urine sodium 90. Blood pressure is elevated most likely from steroids. The sodium chloride tabs are on hold. 2. History of hyponatremia previously maintained on sodium chloride tabs 3. Chronic back pain 4. COPD maintained on home oxygen 5. History of depression/anxiety maintained on Effexor Depakote Lamictal Plan: Continue off of IV fluids Continue to hold sodium chloride tabs due to hypertension Can resume low-dose lisinopril as potassium has improved. Continue with low potassium diet Increase metoprolol if blood pressure remains elevated
[2024-10-20] MEDS: lisinopriL 10 MG TAB PO SCH (17:07)
--- NOTE | 2024-10-20 17:35 | P.PN ---
Subjective Progress Note Date: 10/20/24 This is a 69-year-old female patient, known history of COPD with chronic hypoxic respiratory failure maintained on 3 L/min nasal cannula, along with various other medical comorbidities including previous history of pulmonary embolism, hypothyroidism, fibromyalgia, diastolic heart failure, chronic back pain, and chronic smoker both tobacco and marijuana. She also has previous history of nonsustained VT. Patient is a quite poor historian. She presented to the emergency department complaining of back pain. No chest pain. No nausea or emesis. No abdominal pain. She has chronic dyspnea and cough. Upon admission, her sodium level was noted to be at 122. Chloride was 79, bicarb was at 38, BUN was 13 with a creatinine of 0.4. UA was negative. LFTs were normal. Glucose was 111. The white cell count of 16.7 dropped on the 9.2. Hemoglobin is at 13 and a platelet count of 376. Chest x-ray done in the emergency department revealed cardiomegaly with increased right mid/lower lobe opacities consistent with atelectasis/tiny right-sided pleural effusion. Noted, the patient also has chronic elevation of the left hemidiaphragm. Going back to her previous chest x-rays, she did have some atelectatic changes in the right lower lobe and right midlung seen on previous chest x-rays. Currently, the patient is on 3 L of oxygen by nasal cannula with a pulse ox of 92%. Based on a previous CAT scan of the chest done on 04/03/2024, and 06/01/2024, the patient does have chronic COPD, chronic stable mediastinal and right hilar lymphadenopathy dating back to 2019, chronic linear atelectatic changes and scarring in the right lower lobe and chronic elevation of the left Julio diaphragm. She also has a right thyroid lobe nodule measuring 1.8 cm in size. Noted the patient has been hospitalized in the past for a similar episode of hyponatremia. During this current hospitalization, the patient was seen by nephrology. Sodium level has picked up significantly and the most recent level is at 131. Her current IV fluids are at KVO. On 10/19/2024, the patient's condition is stable. She is a bit anxious. She has chronic cough and dyspnea. No objective evidence of pneumonia based on my rev iew of the chest x-ray and comparing it to the older and previous chest x-ray and CAT scans. Await records at 9.4 with a hemoglobin of 12 and a platelet count of 341. Sodium levels at 128, nephrology is following the patient is chronic hyponatremia. K level is at 5.6. BUN is 12 with a creatinine of 0.5. Antibiotics can be discontinued. She remains on DuoNeb updrafts. She remains on IV Solu-Medrol and we are looking into tapering the patient to a prednisone burst taper over the next 24 hours. 10/20/2024, the patient is being seen for a follow-up. Doing well with no specific complaints. Sodium level has normalized and the level is up to 232. Overall respiratory status remains unchanged. The patient has no altered mentation. She remains a bit anxious. Implementing fluid restriction. Otherwise, the patient remains hemodynamically stable. Medications are essentially unchanged. She remains on Symbicort, DuoNeb updrafts, IV Solu- Medrol 60 mg every 6 hours that will be further tapered over the next 24 hours. She remains on doxycycline which is an empiric antibiotic coverage. Objective - Vital Signs Vital signs: Vital Signs Temp 97.8 F 10/20/24 07:34 Pulse 64 10/20/24 09:47 Resp 19 10/20/24 08:31 BP 172/74 10/20/24 07:34 Pulse Ox 96 10/20/24 07:34 FiO2 Intake & Output 10/19/24 10/20/24 10/20/24 18:59 06:59 18:59 Output Total 1100 250 Balance -1100 -250 Output: Urine 1100 250 Other: Voiding Method External Catheter External Catheter External Catheter - Exam GENERAL EXAM: Alert, anxious 69-year-old female, on 3 L nasal cannula, fairly comfortable in no apparent distress. HEAD: Normocephalic. EYES: Normal reaction of pupils, equal size. NOSE: Clear with pink turbinates. THROAT: No erythema or exudates. NECK: No masses, no JVD. CHEST: No chest wall deformity. LUNGS: Equal air entry with bilateral scattered rhonchi. CVS: S1 and S2 normal with no audible murmur, regular rhythm. ABDOMEN: No hepatosplenomegaly, normal bowel sounds, no guarding or rigidity. SPINE: No scoliosis or deformity SKIN: No rashes, healing wound in the right hogan, no active drainage or abscess CENTRAL NERVOUS SYSTEM: No focal deficits, tone is normal in all 4 extremities. EXTREMITIES: There is no peripheral edema. No clubbing, no cyanosis. Peripheral pulses are intact. - Labs CBC & Chem 7: 10/20/24 05:31 10/20/24 05:31 Labs: Abnormal Lab Results - Last 24 Hours (Table) 10/19/24 10/20/24 10/20/24 Range/Units 15:51 05:31 05:31 WBC 18.10 H (4.50-10.00) X 10*3/uL MPV 8.9 L (9.5-12.2) FL Immature Gran # 0.23 H (0.00-0.04) X 10*3/uL Neutrophils # 16.13 H (1.80-7.70) X 10*3/uL Lymphocytes # 0.88 L (0.90-5.00) X 10*3/uL Eosinophils # 0 L (0.04-0.35) X 10*3/uL Sodium 128 L 132 L (137-145) mmol/L Chloride 90 L (96-109) mmol/L Carbon Dioxide 34.0 H (21.6-31.8) mmol/L Creatinine 0.5 L (0.6-1.5) mg/dL BUN/Creatinine Ratio 35.00 H (12.00-20.00) Ratio Glucose 271 H (70-110) mg/dL Microbiology - Last 24 Hours (Table) 10/17/24 10:53 Blood Culture - Preliminary Blood Assessment and Plan Plan: Acute hypochloremic hyponatremia,, recurrent. Could be hypovolemic. Also consider drug-induced. Nephrology on the case. Sodium level has normalized. Patient presented with a sodium level of 121 and her current sodium levels is normalized. Chronic hypoxemic respiratory failure, maintained on 3 L of oxygen by nasal cannula Advanced COPD, stable, on home oxygen ar 3 liters/min Chronic stable mediastinal lymphadenopathy, dating back to 2019 Chronic left hemidiaphragmatic elevation contributing to her chronic shortness of breath Chronic right basilar scarring as noted on follow-up chest x-ray done during this current hospitalization. Bipolar disorder with anxiety Fibromyalgia History of chronic tobacco dependence Hypothyroidism History of hypertension History of marijuana use Cervical spinal stenosis Scoliosis Irritable bowel syndrome History of colonic polyps Previous history of urine tract infection with Enterococcus History of gastric bypass surgery Plan: clinically stable and sodium level has been improving Chest x-ray findings are stable and unchanged and chronic. No need for antibiotic coverage at this point in time. Continue Symbicort and DuoNeb updrafts [id number] Will start prednisone as of tomorrow Antibiotic can be discontinued IV fluids to KVO Sodium level is improved and the sodium level is normalized and nephrology on the case No altered mentation Consult nephrology is appreciated Titrate the FiO2 as tolerated, currently on 3 L Educated regarding the importance of smoking cessation NicoDerm patch has been offered Continue Lamictal and Depakote, BuSpar and Klonopin Continue the combination Effexor and Zyprexa Will follow
[2024-10-21 08:13] VITALS: BP 188/78; RESP 19; TEMP 98.3
[2024-10-21 08:52] VITALS: PULSE 68
[2024-10-21 09:43] LABS: Basophils # (A) 0.04 X 10*3/uL (0.00-0.10); Basophils % (A) 0.2 %; Eosinophils # (A) 0.01 X 10*3/uL (0.04-0.35); Eosinophils % (A) 0.1 %; HCT 40.2 % (37.2-46.3); Lymphocytes % (A) 4.4 %; MCH 30.5 pg (27.0-32.0); MCHC 32.3 g/dL (32.0-37.0); MCV 94.4 FL (80.0-97.0); Monocytes # (A) 0.78 X 10*3/uL (0.20-1.00); Monocytes % (A) 4.3 %; NRBC Per 100 WBC 0 X 10*3/uL (0.00-0.01); Neutrophils # (A) 16.28 X 10*3/uL (1.80-7.70); Neutrophils % (A) 90.1 %; Platelet Count 453 X 10*3/uL (140-440); RBC 4.26 X 10*6/uL (4.10-5.20); RDW 11.9 % (11.5-14.5); WBC 18.08 X 10*3/uL (4.50-10.00)
[2024-10-21 09:46] LABS: Blood Urea Nitrogen 19.5 mg/dL (9.0-27.0); Carbon Dioxide 33.8 mmol/L (21.6-31.8); Chloride 93 mmol/L (96-109); Glucose 264 mg/dL (70-110); Potassium 5.2 mmol/L (3.5-5.5); Sodium 134 mmol/L (135-145)
[2024-10-21 09:47] LABS: Calcium 10.2 mg/dL (8.7-10.3)
--- NOTE | 2024-10-21 12:19 | P.PN ---
Subjective Patient is seen in follow-up for hyponatremia. Sodium level improved. Oral intake is good. Wants to go home. Vital signs are stable. General: No acute distress. HEENT: Head exam is unremarkable. On nasal cannula. LUNGS: No audible rhonchi or wheezes. HEART: Rate and Rhythm are regular. ABDOMEN: Nontender. EXTREMITITES: No edema. Objective - Vital Signs Vital signs: Vital Signs Temp 98.3 F 10/21/24 06:50 Pulse 68 10/21/24 11:54 Resp 19 10/21/24 08:55 BP 188/78 10/21/24 06:50 Pulse Ox 94 L 10/21/24 06:50 FiO2 Intake & Output 10/20/24 10/21/24 10/21/24 18:59 06:59 18:59 Intake Total 1650 Output Total 825 550 Balance -825 1100 Intake: Oral 1650 Output: Urine 825 550 Other: Voiding Method External Catheter External Catheter External Catheter # Voids 2 - Labs CBC & Chem 7: 10/21/24 06:12 10/21/24 06:12 Labs: Abnormal Lab Results - Last 24 Hours (Table) 10/21/24 10/21/24 Range/Units 06:12 06:12 WBC 18.08 H (4.50-10.00) X 10*3/uL Plt Count 453 H (140-440) X 10*3/uL MPV 9.0 L (9.5-12.2) FL Immature Gran # 0.17 H (0.00-0.04) X 10*3/uL Neutrophils # 16.28 H (1.80-7.70) X 10*3/uL Lymphocytes # 0.80 L (0.90-5.00) X 10*3/uL Eosinophils # 0.01 L (0.04-0.35) X 10*3/uL Sodium 134 L (135-145) mmol/L Chloride 93 L (96-109) mmol/L Carbon Dioxide 33.8 H (21.6-31.8) mmol/L Creatinine 0.5 L (0.6-1.5) mg/dL BUN/Creatinine Ratio 39.00 H (12.00-20.00) Ratio Glucose 264 H (70-110) mg/dL Microbiology - Last 24 Hours (Table) 10/17/24 10:53 Blood Culture - Preliminary Blood Assessment and Plan Plan: Assessment: 1. Hyponatremia, initially hypovolemic. Now appears euvolemic. Sodium level 134 today. Patient is on Depakote and Effexor which can induce SIADH. 2. Chronic COPD maintained on nasal cannula. Also wears oxygen at home. 3. Chronic back pain. 4. Benign hypertension. Exacerbated by steroids. Plan: Encouraged oral intake. Advised patient to maintain fluid restriction of less than 50 ounces per day upon discharge. Hold off on salt tabs due to hypertension. Repeat BMP and magnesium level 2 to 3 days postdischarge. Follow-up outpatient 1 week postdischarge.
--- NOTE | 2024-10-21 13:51 | P.DS ---
Providers Date of admission: 10/17/24 10:39 Expected date of discharge: 10/21/24 Attending physician: Tray Verma MD Consults: 10/17/24 12:25 Consult Physician Routine Consulting Provider: Geno Olea Consult Reason/Comments: Hyponatremia Do you want consulting provider notified?: Yes 10/18/24 12:51 Consult Physician Routine Consulting Provider: Ana Maria Carr Consult Reason/Comments: Pneumonia, acute COPD exacerbation Do you want consulting provider notified?: Yes Primary care physician: Andrzej Wheeler Hospital Course: Discharge diagnoses; Pneumonia: Acute COPD exacerbation: Chronic hypoxia: On 3 L oxygen at baseline Patient complained of cough, shortness of breath. Chest x-ray showed cardiomegaly with increased right mid to lower lung acute infiltrate, tiny right pleural effusion Continue doxycycline Continue home inhalers Solu-Medrol. Incentive spirometry Pulmonary following, appreciate their input 4/5. Being discharged on tapering dose of prednisone, completed course of antibiotics Hyponatremia: Improving Hyperkalemia: Currently on 10 mg of lisinopril Chronic low back pain: Chronic neck pain: Scoliosis Multilevel cervical spondylosis Cervical canal stenosis Lumbar central canal and neuroforaminal stenosis: Symptomatic treatment Has been seen by orthopedic spine in the past recommended outpatient follow-up. Depression/anxiety Has been seen by psychiatry in the past Continue home meds including Effexor, Lamictal, Depakote, Klonopin. Hospital course; 69-year-old female with past medical history significant for hyponatremia, diastolic CHF, history of chronic back pain, history of COPD on 3 to oxygen at baseline, fibromyalgia, osteoarthritis, history of PE, hypothyroidism, current smoker, marijuana use disorder, history of anxiety, history of nonsustained VT who presented to ER with a complaint of back pain, radiating up and down her back. Patient complained of productive cough and shortness of breath, uses 3 to oxygen at baseline. Patient is poor historian. Continue to complain of anxiety and back pain and continues to ask for the pain medications. Patient denied any fever or chills, denied any sore throat, chest pain, palpitations, nausea vomiting diarrhea constipation abdominal pain dysuria urgency frequency weakness or numbness of extremities. Patient is afebrile, heart rate 60, respiratory rate 16, blood pressure 115/77, saturating 95% on room air. WBC 16.7, hemoglobin 13.0, platelet 376. Sodium 122, potassium 4.8, chloride 79, CO2 38, BUN 13, creatinine 0.46, magnesium 1 point. UA unremarkable. Chest x-ray showed cardiomegaly with increased right mid to lower lung acute infiltrate/atelectasis and tiny right pleural effusion. 10/18--patient was seen and examined today. Patient is very anxious, complaining of feeling panic attacks. at bedside. Patient was afebrile, heart rate 66, respiratory rate 17, blood pressure 146/70, saturating 95% on 4 L. WBCs 9.2, hemoglobin 10.3, platelet 262. Sodium improved to 131, potassium 4.8, call right 89, CO2 38.8 BUN 7.4 creatinine 0.3. 10/19--- patient was seen and examined today. Patient is very anxious, afebrile, heart rate 80, respiratory rate 19, blood pressure 166/71, saturating 95% on 4 L. WBCs 9.4, hemoglobin 12.0, platelet 341. Sodium 128 potassium 5.6, BUN 12.2, creatinine 0.5. Pulmonary and nephrology following. Discontinue Rocephin, remains on doxycycline. On inhaler bronchodilator protocol and Solu- Medrol. Nephrology recommended to hold off IV fluids, one-time IV Lasix today. Hold lisinopril for elevated potassium. 10/20--- patient was seen and examined today. Anxiety is better today. Patient is afebrile, heart rate 69, respiratory rate 20, blood pressure 153/70, saturating 91% on 3 L. WBCs 18.1 secondary to Solu-Medrol. Hemoglobin 12.8, platelet 427. Sodium better today 132. Potassium 4.8, chloride 90, CO2 34, BUN 17, creatinine 0.5. Received 1 dose of IV Lasix yesterday, sodium improved to 132 today. Nephrology following. Home bronchodilator protocol with inhalers, on IV Solu-Medrol. Pulmonary following. 10/21. Patient seen examined. Blood work showed WBC 18.08, hemoglobin 13, sodium 134, potassium 5.2, BUN 19.5, creatinine 0.5. PHYSICAL EXAMINATION: GENERAL: The patient is alert and oriented x3, not in any acute distress. Well developed, well nourished. HEENT: Pupils are round and equally reacting to light. EOMI. No scleral icterus. No conjunctival pallor. Normocephalic, atraumatic. No pharyngeal erythema. No thyromegaly. CARDIOVASCULAR: S1 and S2 present. No murmurs, rubs, or gallops. PULMONARY: Coarse breath sounds bilaterally, no wheezing or crackles. ABDOMEN: Soft, nontender, nondistended, normoactive bowel sounds. No palpable organomegaly. MUSCULOSKELETAL: No joint swelling or deformity. EXTREMITIES: No cyanosis, clubbing, or pedal edema. NEUROLOGICAL: Gross neurological examination did not reveal any focal deficits. SKIN: No rashes. Dictation was produced using [employer] dictation software. please excuse any g rammatical, word or spelling errors. Patient Condition at Discharge: Poor Plan - Discharge Summary Discharge Rx Participant: No New Discharge Prescriptions: New guaiFENesin [Mucinex] 600 mg PO Q12HR 7 Days #14 tab amLODIPine [Norvasc] 5 mg PO BID 30 Days #60 tab predniSONE 10 mg PO DAILY 8 Days #20 tab lisinopriL [Zestril] 10 mg PO DAILY 30 Days #30 tab Continue Montelukast [Singulair] 10 mg PO HS Levothyroxine Sodium [Synthroid] 150 mcg PO DAILY Ipratropium-Albuterol Nebulize [Duoneb 0.5 mg-3 mg/3 ml Soln] 3 ml INHALATION RT-QID clonazePAM [KlonoPIN ODT] 0.25 mg PO HS lamoTRIgine [LaMICtal] 100 mg PO BID Acetaminophen Tab [Tylenol] 650 mg PO Q6HR PRN tab PRN Reason: Mild Pain Or Fever > 100.5 busPIRone HCL [Buspar] 30 mg PO BID Fluticasone/Umeclidin/Vilanter [Trelegy Ellipta 200-62.5-25] 1 puff INHALATION RT-DAILY Famotidine [Pepcid] 20 mg PO BID Tamsulosin [Flomax] 0.4 mg PO HS Albuterol Inhaler [Ventolin Hfa Inhaler] 2 puff INHALATION RT-QID PRN #1 each PRN Reason: Shortness Of Breath Metoprolol Tartrate [Lopressor] 25 mg PO BID Divalproex ER [Depakote ER] 250 mg PO BID #60 tab Gabapentin 300 mg PO TID Furosemide [Lasix] 20 mg PO DAILY #30 tab methocarbamoL [Robaxin-750] 750 mg PO BID PRN PRN Reason: Muscle Spasm OLANZapine 15 mg PO HS Venlafaxine HCl [Effexor XR] 150 mg PO DAILY Discontinued amLODIPine [Norvasc] 5 mg PO DAILY lisinopriL [Zestril] 20 mg PO DAILY Cefdinir [Omnicef] 300 mg PO Q12HR Naproxen [EC-Naprosyn] 500 mg PO BID-W/MEALS Sodium Chloride Tab 1 gm PO DAILY Discharge Medication List Montelukast [Singulair] 10 mg PO HS 12/17/13 [History] Levothyroxine Sodium [Synthroid] 150 mcg PO DAILY 03/29/20 [History] Famotidine [Pepcid] 20 mg PO BID 09/03/21 [History] Tamsulosin [Flomax] 0.4 mg PO HS 10/26/21 [History] Ipratropium-Albuterol Nebulize [Duoneb 0.5 mg-3 mg/3 ml Soln] 3 ml INHALATION RT-QID 11/13/22 [History] Albuterol Inhaler [Ventolin Hfa Inhaler] 2 puff INHALATION RT-QID PRN #1 each 11/17/22 [Rx] clonazePAM [KlonoPIN ODT] 0.25 mg PO HS 12/12/23 [History] lamoTRIgine [LaMICtal] 100 mg PO BID 03/18/24 [History] Metoprolol Tartrate [Lopressor] 25 mg PO BID 05/16/24 [History] Divalproex ER [Depakote ER] 250 mg PO BID #60 tab 05/26/24 [Rx] Gabapentin 300 mg PO TID 06/01/24 [History] Acetaminophen Tab [Tylenol] 650 mg PO Q6HR PRN tab 06/02/24 [Rx] busPIRone HCL [Buspar] 30 mg PO BID 06/09/24 [History] Furosemide [Lasix] 20 mg PO DAILY #30 tab 06/22/24 [Rx] Fluticasone/Umeclidin/Vilanter [Trelegy Ellipta 200-62.5-25] 1 puff INHALATION RT-DAILY 10/17/24 [History] OLANZapine 15 mg PO HS 10/17/24 [History] Venlafaxine HCl [Effexor XR] 150 mg PO DAILY 10/17/24 [History] methocarbamoL [Robaxin-750] 750 mg PO BID PRN 10/17/24 [History] amLODIPine [Norvasc] 5 mg PO BID 30 Days #60 tab 10/21/24 [Rx] guaiFENesin [Mucinex] 600 mg PO Q12HR 7 Days #14 tab 10/21/24 [Rx] lisinopriL [Zestril] 10 mg PO DAILY 30 Days #30 tab 10/21/24 [Rx] predniSONE 10 mg PO DAILY 8 Days #20 tab 10/21/24 [Rx] Follow up Appointment(s)/Referral(s): Andrzej Wheeler MD [Primary Care Provider] - 1-2 days Ana Maria Carr MD [STAFF PHYSICIAN] - 1 Week Discharge Disposition: HOME SELF-CARE
--- NOTE | 2024-10-21 15:33 | P.PN ---
Subjective Progress Note Date: 10/21/24 This is a 69-year-old female patient, known history of COPD with chronic hypoxic respiratory failure maintained on 3 L/min nasal cannula, along with various other medical comorbidities including previous history of pulmonary embolism, hypothyroidism, fibromyalgia, diastolic heart failure, chronic back pain, and chronic smoker both tobacco and marijuana. She also has previous history of nonsustained VT. Patient is a quite poor historian. She presented to the emergency department complaining of back pain. No chest pain. No nausea or emesis. No abdominal pain. She has chronic dyspnea and cough. Upon admission, her sodium level was noted to be at 122. Chloride was 79, bicarb was at 38, BUN was 13 with a creatinine of 0.4. UA was negative. LFTs were normal. Glucose was 111. The white cell count of 16.7 dropped on the 9.2. Hemoglobin is at 13 and a platelet count of 376. Chest x-ray done in the emergency department revealed cardiomegaly with increased right mid/lower lobe opacities consistent with atelectasis/tiny right-sided pleural effusion. Noted, the patient also has chronic elevation of the left hemidiaphragm. Going back to her previous chest x-rays, she did have some atelectatic changes in the right lower lobe and right midlung seen on previous chest x-rays. Currently, the patient is on 3 L of oxygen by nasal cannula with a pulse ox of 92%. Based on a previous CAT scan of the chest done on 04/03/2024, and 06/01/2024, the patient does have chronic COPD, chronic stable mediastinal and right hilar lymphadenopathy dating back to 2019, chronic linear atelectatic changes and scarring in the right lower lobe and chronic elevation of the left Julio diaphragm. She also has a right thyroid lobe nodule measuring 1.8 cm in size. Noted the patient has been hospitalized in the past for a similar episode of hyponatremia. During this current hospitalization, the patient was seen by nephrology. Sodium level has picked up significantly and the most recent level is at 131. Her current IV fluids are at KVO. On 10/19/2024, the patient's condition is stable. She is a bit anxious. She has chronic cough and dyspnea. No objective evidence of pneumonia based on my rev iew of the chest x-ray and comparing it to the older and previous chest x-ray and CAT scans. Await records at 9.4 with a hemoglobin of 12 and a platelet count of 341. Sodium levels at 128, nephrology is following the patient is chronic hyponatremia. K level is at 5.6. BUN is 12 with a creatinine of 0.5. Antibiotics can be discontinued. She remains on DuoNeb updrafts. She remains on IV Solu-Medrol and we are looking into tapering the patient to a prednisone burst taper over the next 24 hours. 10/20/2024, the patient is being seen for a follow-up. Doing well with no specific complaints. Sodium level has normalized and the level is up to 232. Overall respiratory status remains unchanged. The patient has no altered mentation. She remains a bit anxious. Implementing fluid restriction. Otherwise, the patient remains hemodynamically stable. Medications are essentially unchanged. She remains on Symbicort, DuoNeb updrafts, IV Solu- Medrol 60 mg every 6 hours that will be further tapered over the next 24 hours. She remains on doxycycline which is an empiric antibiotic coverage. On 10/21/2024, patient is stable on oxygen at 3 L. No worsening shortness of breath. No significant cough or sputum production. White cell count is 18 with a heme of 13 and platelets, 453. Sodium levels up to 134, BUN is 19 with a creatinine of 0.5. No new complaints for now. Awake and alert and communicating. No focal neurological deficits. Seems to be less anxious compared to yesterday. Objective - Vital Signs Vital signs: Vital Signs Temp 98.3 F 10/21/24 06:50 Pulse 68 10/21/24 11:54 Resp 19 10/21/24 08:55 BP 188/78 10/21/24 06:50 Pulse Ox 94 L 10/21/24 06:50 FiO2 Intake & Output 10/20/24 10/21/24 10/21/24 18:59 06:59 18:59 Intake Total 1650 Output Total 825 550 Balance -825 1100 Intake: Oral 1650 Output: Urine 825 550 Other: Voiding Method External Catheter External Catheter External Catheter # Voids 2 - Exam GENERAL EXAM: Alert, anxious 69-year-old female, on 3 L nasal cannula, fairly comfortable in no apparent distress. HEAD: Normocephalic. EYES: Normal reaction of pupils, equal size. NOSE: Clear with pink turbinates. THROAT: No erythema or exudates. NECK: No masses, no JVD. CHEST: No chest wall deformity. LUNGS: Equal air entry with bilateral scattered rhonchi. CVS: S1 and S2 normal with no audible murmur, regular rhythm. ABDOMEN: No hepatosplenomegaly, normal bowel sounds, no guarding or rigidity. SPINE: No scoliosis or deformity SKIN: No rashes, healing wound in the right hogan, no active drainage or abscess CENTRAL NERVOUS SYSTEM: No focal deficits, tone is normal in all 4 extremities. EXTREMITIES: There is no peripheral edema. No clubbing, no cyanosis. Peripheral pulses are intact. - Labs CBC & Chem 7: 10/21/24 06:12 10/21/24 06:12 Labs: Abnormal Lab Results - Last 24 Hours (Table) 10/21/24 10/21/24 Range/Units 06:12 06:12 WBC 18.08 H (4.50-10.00) X 10*3/uL Plt Count 453 H (140-440) X 10*3/uL MPV 9.0 L (9.5-12.2) FL Immature Gran # 0.17 H (0.00-0.04) X 10*3/uL Neutrophils # 16.28 H (1.80-7.70) X 10*3/uL Lymphocytes # 0.80 L (0.90-5.00) X 10*3/uL Eosinophils # 0.01 L (0.04-0.35) X 10*3/uL Sodium 134 L (135-145) mmol/L Chloride 93 L (96-109) mmol/L Carbon Dioxide 33.8 H (21.6-31.8) mmol/L Creatinine 0.5 L (0.6-1.5) mg/dL BUN/Creatinine Ratio 39.00 H (12.00-20.00) Ratio Glucose 264 H (70-110) mg/dL Microbiology - Last 24 Hours (Table) 10/17/24 10:53 Blood Culture - Preliminary Blood Assessment and Plan Plan: Acute hypochloremic hyponatremia,, recurrent. Could be hypovolemic. Also consider drug-induced. Nephrology on the case. Sodium level has normalized. Patient presented with a sodium level of 121 and her current sodium levels is normalized. Sodium levels up to 134 Chronic hypoxemic respiratory failure, maintained on 3 L of oxygen by nasal cannula Advanced COPD, stable, on home oxygen ar 3 liters/min Chronic stable mediastinal lymphadenopathy, dating back to 2019 Chronic left hemidiaphragmatic elevation contributing to her chronic shortness of breath Chronic right basilar scarring as noted on follow-up chest x-ray done during this current hospitalization. Bipolar disorder with anxiety Fibromyalgia History of chronic tobacco dependence Hypothyroidism History of hypertension History of marijuana use Cervical spinal stenosis Scoliosis Irritable bowel syndrome History of colonic polyps Previous history of urine tract infection with Enterococcus History of gastric bypass surgery Plan: Sodium level has normalized and the patient is asymptomatic Chronic dyspnea, currently back to baseline Chest x-ray findings are stable and unchanged and chronic. No need for antibiotic coverage at this point in time. Continue Symbicort and DuoNeb updrafts [id number] IV fluids to KVO Sodium level is improved and the sodium level is normalized and nephrology on the case No altered mentation Consult nephrology is appreciated Educated regarding the importance of smoking cessation NicoDerm patch has been offered Continue Lamictal and DepakoteMinisterio and Orquidea Continue the combination Effexor and Zyprexa Discharged today.
--- NOTE | 2024-10-24 22:07 | CDI ---
Documentation Clarification Form Date: 10/24/2024 09:58:07 PM From: Oksana Roche Phone: Admit Date: 10/17/2024 10:39:00 AM Patient Name: Haydee Mcpherson Visit Number: [id number] Discharge Date: 10/21/2024 02:55:00 PM ATTENTION: The Clinical Documentation Specialists (CDI) and [facility] Coding Staff appreciate your assistance in clarifying documentation. Please respond to the clarification below the line at the bottom and electronically sign. The CDI & [facility] Coding staff will review the response and follow-up if needed. Please note: Queries are made part of the Legal Health Record. If you have any questions, please contact the author of this message via ITS. Doctor/Provider: Tray Verma Conflicting documentation has been found in the medical record. As attending physician, please provide clarification. Pneumonia per DC Summary Per Pulmonology PN on 10/20: "Chest x-ray findings are stable and unchanged and chronic. No need for antibiotic coverage at this point in time History/Risk Factors: 69yo F, AECOPD, chronichypoxia on O2, Hyponatremia, CDHF, HTN, depression, anxiety, hypomagnesemia Clinical Indicators: CXR Cardiomegalywith increasing right mid to lower lung acute infiltratesand/oratelectasisand tiny rightpleural effusion. Treatment: Patient complained ofcough,shortness of breath. Continue doxycycline. Continue home inhalers. Solu-Medrol. Incentive spirometry. Pulmonary following, appreciate their input 10/21.Being discharged on tapering dose of prednisone, completed course of antibiotics Please clarify which diagnosis is most appropriate: [ x ] Pneumonia, confirmed [ ] Pneumonia, ruled out [ ] Other (please specify) [ ] Unable to determine (Template Last Revised: September 2020) MTDD
== END 2024-10-21 14:55 | disposition home or self-care (01) | DRG 640 ==
LOC: EC 08:58 → 4SSUR 10:39
PROVIDERS: ADMIT Internal Medicine; ATTEND Internal Medicine
DX: E87.1 Hypo-osmolality and hyponatremia (principal); J18.9 Pneumonia, unspecified organism; I50.32 Chronic diastolic (congestive) heart failure; J44.0 Chronic obstructive pulmonary disease with (acute) lower respiratory infection; J44.1 Chronic obstructive pulmonary disease with (acute) exacerbation; I11.0 Hypertensive heart disease with heart failure; Z99.81 Dependence on supplemental oxygen; F31.9 Bipolar disorder, unspecified; E04.1 Nontoxic single thyroid nodule; E03.9 Hypothyroidism, unspecified; J96.11 Chronic respiratory failure with hypoxia; E83.42 Hypomagnesemia; F17.210 Nicotine dependence, cigarettes, uncomplicated; E87.5 Hyperkalemia; E86.1 Hypovolemia; T38.0X5A Adverse effect of glucocorticoids and synthetic analogues, initial encounter; M41.9 Scoliosis, unspecified; M48.02 Spinal stenosis, cervical region; E87.8 Other disorders of electrolyte and fluid balance, not elsewhere classified; R59.0 Localized enlarged lymph nodes; F41.9 Anxiety disorder, unspecified; M79.7 Fibromyalgia; K58.9 Irritable bowel syndrome, unspecified; M47.812 Spondylosis without myelopathy or radiculopathy, cervical region; Z82.49 Family history of ischemic heart disease and other diseases of the circulatory system; Z79.890 Hormone replacement therapy; Z79.899 Other long term (current) drug therapy; Z79.51 Long term (current) use of inhaled steroids; Z86.711 Personal history of pulmonary embolism; Z98.84 Bariatric surgery status; Z86.14 Personal history of Methicillin resistant Staphylococcus aureus infection; Z86.0100 Personal history of colon polyps, unspecified; Z86.19 Personal history of other infectious and parasitic diseases; Z86.79 Personal history of other diseases of the circulatory system; Z87.01 Personal history of pneumonia (recurrent)
CPT/HCPCS: 36415; 71046; 80048; 80053; 81003; 83735; 84295; 85025; 87040; 93005; 94640; 94760; 96361; 96365; 96366; 96367; 96375; 99285

== ENCOUNTER 2024-11-09 14:03 | Inpatient (IN) | payer MEDICARE ==
--- NOTE | 2024-11-09 14:17 | ED ---
General Adult HPI - General Chief complaint: Shortness of Breath Stated complaint: SOB Time Seen by Provider: 11/09/24 14:16 Source: patient, family, RN notes reviewed Mode of arrival: wheelchair Limitations: no limitations - History of Present Illness Initial comments: This is a 69-year-old female with multiple comorbid conditions including COPD/chronic hypoxic respiratory failure on 3 L nasal cannula, heart failure, and history of PE presenting to the emergency department with complaints of difficulty in breathing. Patient states that over the past 3 days she has been feeling increasingly short of breath that she is not able to take in a deep prabhjot th. Patient states that her chest feels tight when she is attempting to take in a deep breath. States that she has been wheezing and having a worsening productive cough. She endorses mild chest pressure with inspiration. She denies heart palpitations, fevers, chills, rhinorrhea, congestion. She denies abdominal pain, nausea, or vomiting. She has been attempting to use her breathing treatments at home with minimal relief in shortness of breath. Patient states that she takes Lasix for her heart failure every other day. - Related Data Home Medications Medication Instructions Recorded Confirmed Montelukast [Singulair] 10 mg PO HS 12/17/13 11/09/24 Levothyroxine Sodium [Synthroid] 150 mcg PO DAILY 03/29/20 11/09/24 Famotidine [Pepcid] 20 mg PO BID 09/03/21 11/09/24 Tamsulosin [Flomax] 0.4 mg PO DAILY 10/26/21 11/09/24 Ipratropium-Albuterol Nebulize 3 ml INHALATION RT-QID 11/13/22 11/09/24 [Duoneb 0.5 mg-3 mg/3 ml Soln] clonazePAM [KlonoPIN ODT] 0.25 mg PO HS 12/12/23 11/09/24 lamoTRIgine [LaMICtal] 100 mg PO BID 03/18/24 11/09/24 Metoprolol Tartrate [Lopressor] 25 mg PO BID 05/16/24 11/09/24 Gabapentin 300 mg PO TID 06/01/24 11/09/24 busPIRone HCL [Buspar] 30 mg PO BID 06/09/24 11/09/24 Fluticasone/Umeclidin/Vilanter 1 puff INHALATION RT-DAILY 10/17/24 11/09/24 [Trelegy Ellipta 200-62.5-25] OLANZapine 15 mg PO HS 10/17/24 11/09/24 Venlafaxine HCl [Effexor XR] 150 mg PO DAILY 10/17/24 11/09/24 Previous Rx's Medication Instructions Recorded Albuterol Inhaler [Ventolin Hfa 2 puff INHALATION RT-QID PRN #1 11/17/22 Inhaler] each Divalproex ER [Depakote ER] 250 mg PO BID #60 tab 05/26/24 Acetaminophen Tab [Tylenol] 650 mg PO Q6HR PRN tab 06/02/24 Furosemide [Lasix] 20 mg PO DAILY #30 tab 06/22/24 amLODIPine [Norvasc] 5 mg PO BID 30 Days #60 tab 10/21/24 guaiFENesin [Mucinex] 600 mg PO Q12HR 7 Days #14 tab 10/21/24 lisinopriL [Zestril] 10 mg PO DAILY 30 Days #30 tab 10/21/24 Allergies Allergy/AdvReac Type Severity Reaction Status Date / Time codeine Allergy Unknown Verified 11/09/24 16:54 Childhood Penicillins Allergy Rash/Hives Verified 11/09/24 16:54 Sulfa (Sulfonamide Allergy Rash/Hives Verified 11/09/24 16:54 Antibiotics) Review of Systems ROS Statement: Those systems with pertinent positive or pertinent negative responses have been documented in the HPI. ROS Other: All systems not noted in ROS Statement are negative. 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 History of Any Multi-Drug Resistant Organisms: MRSA Date of last positivie culture/infection: 03/2024 MDRO Source:: Knee Past Surgical History: Bariatric Surgery, Section, Cholecystectomy, Hysterectomy, Tonsillectomy Additional Past Surgical History / Comment(s): EGD, colonoscopies, gastric bypass, surgery for deviated septum, left cataract removal (having laser proced ure on that eye 11/24/23) Past Anesthesia/Blood Transfusion Reactions: Previous Problems w/ Anesthesia Additional Past Anesthesia/Blood Transfusion Reaction / Comment(s): itching after hysterectomy, some kind of breathing problem after gastric bypass-not sure what happened Past Psychological History: Anxiety, Bipolar, Depression, Panic Disorder Smoking Status: Current every day smoker Past Alcohol Use History: None Reported Past Drug Use History: None Reported - Past Family History Mother Family Medical History: Congestive Heart Failure (CHF), Hypertension Father History Unknown: Yes Additional Family Medical History / Comment(s): Father at the age of 45 yrs d/t having had rheumatic fever as a child and heart valve disease. General Exam Limitations: no limitations General appearance: alert, in no apparent distress Neck exam: Present: normal inspection. Absent: tenderness, meningismus, lymphadenopathy Respiratory exam: Present: wheezes, rhonchi, decreased breath sounds. Absent: normal lung sounds bilaterally, respiratory distress Cardiovascular Exam: Present: regular rate, normal rhythm, normal heart sounds. Absent: systolic murmur, diastolic murmur, rubs, gallop, clicks GI/Abdominal exam: Present: soft, normal bowel sounds. Absent: distended, ten derness, guarding, rebound, rigid Extremities exam: Present: normal inspection, full ROM, normal capillary refill. Absent: tenderness, pedal edema, joint swelling, calf tenderness Back exam: Present: normal inspection Skin exam: Present: warm, dry, intact, normal color. Absent: rash Course Vital Signs 11/09/24 11/09/24 11/09/24 14:08 15:25 15:36 Temperature 98.3 F Pulse Rate 72 72 74 Respiratory 18 Rate Blood Pressure 159/74 O2 Sat by Pulse 90 L Oximetry 11/09/24 11/09/24 11/09/24 16:45 19:17 19:22 Temperature Pulse Rate 71 90 95 Respiratory 22 Rate Blood Pressure 168/70 O2 Sat by Pulse 92 L Oximetry 11/09/24 19:41 Temperature 98.2 F Pulse Rate 95 Respiratory 18 Rate Blood Pressure 163/78 O2 Sat by Pulse 94 L Oximetry Medical Decision Making - Medical Decision Making Was pt. sent in by a medical professional or institution (HERMINIA Shepard, [employer] SOFTWARE DEVELOPER, urgent care, hospital, or [facility]...) When possible be specific @ -No Did you speak to anyone other than the patient for history (EMS, parent, family, police, friend...)? What history was obtained from this source @ -No Did you review nursing and triage notes (agree or disagree)? Why? @ -I reviewed and agree with nursing and triage notes Were old charts reviewed (outside hosp., previous admission, EMS record, old EKG, old radiological studies, urgent care reports/EKG's, [facility] records)? Report findings @ -No old charts were reviewed Differential Diagnosis (chest pain, altered mental status, abdominal pain women, abdominal pain men, vaginal bleeding, weakness, fever, dyspnea, syncope, headache, dizziness, GI bleed, back pain, seizure, CVA, palpatations, mental health, musculoskeletal)? @ -Differential Dyspnea: Coronary syndrome, arrhythmia, tamponade, asthma, COPD, pulmonary embolism, pneumonia, pneumothorax, pulmonary effusion, anaphylaxis, diabetic ketoacidosis, flailed chest, pulmonary contusion, diaphragmatic rupture, anemia, neuromuscular, this is not meant to be an all-inclusive list. EKG interpreted by me (3pts min.). @ -Completed at 1425 sinus rhythm with a ventricular rate of 75, CA interval 187, QRS 120, QTc 388. X-rays interpreted by me (1pt min.). @ -Chest x-ray completed with persistent right lower lobe infiltrate with find ings persistent from prior exam on 10/17/2024 CT interpreted by me (1pt min.). @ -None done U/S interpreted by me (1pt. min.). @ -None done What testing was considered but not performed or refused? (CT, X-rays, U/S, labs)? Why? @ -None What meds were considered but not given or refused? Why? @ -None Did you discuss the management of the patient with other professionals (professionals i.e. HERMINIA Shepard, LEAD NET SOFTWARE DEVELOPER, lab, RT, psych nurse, social work manager, news photographer, teacher, sewage reticulation drafting officer, pillowcase turner)? Give summary @ -Spoke with [facility] for admission. Was smoking cessation discussed for >3mins.? @ -No Was critical care preformed (if so, how long)? @ -No Were there social determinants of health that impacted care today? How? (Homelessness, low income, unemployed, alcoholism, drug addiction, transportat ion, low edu. Level, literacy, decrease access to med. care, shelter, rehab)? @ -No Was there de-escalation of care discussed even if they declined (Discuss DNR or withdrawal of care, Hospice)? DNR status @ -No What co-morbidities impacted this encounter? (DM, HTN, Smoking, COPD, CAD, Cancer, CVA, ARF, Chemo, Hep., AIDS, mental health diagnosis, sleep apnea, morbid obesity)? @ -None Was patient admitted / discharged? Hospital course, mention meds given and route, prescriptions, significant lab abnormalities, going to OR and other pertinent info. @ -Admitted. 69-year-old female presenting to the emergency department for shortness of breath. EKG reveals sinus rhythm. Lung sounds are diminished bilaterally with mild wheezing. She is provided with Solu-Medrol and a DuoNeb breathing treatment. Laboratory testing including CBC is unremarkable. CMP reveals chronic elevated CO2 of 36 and chloride of 88. Patient has hyponatremia with a sodium of 131. Cepheid is negative. Chest x-ray reveals unresolved right sided infiltrate versus atelectasis. Patient admitted to internal [facility] for COPD exacerbation started on antibiotics for concern of treated pneumonia. Scheduled breathing treatments. Case discussed with Dr. Sanchez Undiagnosed new problem with uncertain prognosis? @ -No Drug Therapy requiring intensive monitoring for toxicity (Heparin, Nitro, Insul in, Cardizem)? @ -No Were any procedures done? @ -No Diagnosis/symptom? @ -COPD exacerbation, PNA Acute, or Chronic, or Acute on Chronic? @ -acute Uncomplicated (without systemic symptoms) or Complicated (systemic symptoms)? @ -complicated Side effects of treatment? @ -No Exacerbation, Progression, or Severe Exacerbation? @ -No Poses a threat to life or bodily function? How? (Chest pain, [place], [place], pneumonia, PE, COPD, DKA, ARF, appy, cholecystitis, CVA, Diverticulitis, Homicidal, Suicidal, threat to staff... and all critical care pts) @ -No - Lab Data Result diagrams: 11/10/24 00:35 11/10/24 00:35 Lab Results 11/09/24 11/09/24 11/09/24 Range/Units 15:06 15:06 15:06 WBC 7.08 (4.50-10.00) 10*3/uL RBC 3.90 L (4.10-5.20) 10*6/uL Hgb 11.7 L (12.0-15.0) g/dL Hct 36.6 L (37.2-46.3) % MCV 93.8 (80.0-97.0) fL MCH 30.0 (27.0-32.0) pg MCHC 32.0 (32.0-37.0) g/dL Plt Count 202 (140-440) 10*3/uL MPV 8.5 L (9.5-12.2) fL Immature Gran % (Auto) 0.6 % Neutrophils % 54.0 % Lymphocytes % 25.4 % Monocytes % 16.1 % Eosinophils % 3.1 % Basophils % 0.8 % Immature Gran # 0.04 (0.00-0.04) 10*3/uL Neutrophils # 3.82 (1.80-7.70) 10*3/uL Lymphocytes # 1.80 (0.90-5.00) 10*3/uL Monocytes # 1.14 H (0.20-1.00) 10*3/uL Eosinophils # 0.22 (0.04-0.35) 10*3/uL Basophils # 0.06 (0.00-0.10) 10*3/uL PT 10.3 (10.0-12.5) sec INR 0.9 (<1.2) APTT 26.0 (22.0-30.0) sec Sodium 131 L (137-145) mmol/L Potassium 4.8 (3.5-5.1) mmol/L Chloride 88 L (98-107) mmol/L Carbon Dioxide 36 H (22-30) mmol/L Anion Gap 7 mmol/L BUN 20 H (7-17) mg/dL Creatinine 0.63 (0.52-1.04) mg/dL Est GFR (CKD-EPI)AfAm >90 (>60 ml/min/1.73 sqM) Est GFR (CKD-EPI)NonAf >90 (>60 ml/min/1.73 sqM) Glucose 96 (74-99) mg/dL Plasma Lactic Acid Joel (0.7-2.0) mmol/L Calcium 9.7 (8.4-10.2) mg/dL Magnesium 1.6 (1.6-2.3) mg/dL Total Bilirubin 0.4 (0.2-1.3) mg/dL AST 25 (14-36) U/L ALT 20 (4-34) U/L Alkaline Phosphatase 65 (38-126) U/L Troponin I (0.000-0.034) ng/mL NT-Pro-B Natriuret Pep 923 pg/mL Total Protein 6.0 L (6.3-8.2) g/dL Albumin 3.6 (3.5-5.0) g/dL Influenza Type A (PCR) (Not Detectd) Influenza Type B (PCR) (Not Detectd) RSV (PCR) (Not Detectd) SARS-CoV-2 (PCR) (Not Detectd) 11/09/24 11/09/24 11/09/24 Range/Units 15:06 15:06 15:06 WBC (4.50-10.00) 10*3/uL RBC (4.10-5.20) 10*6/uL Hgb (12.0-15.0) g/dL Hct (37.2-46.3) % MCV (80.0-97.0) fL MCH (27.0-32.0) pg MCHC (32.0-37.0) g/dL Plt Count (140-440) 10*3/uL MPV (9.5-12.2) fL Immature Gran % (Auto) % Neutrophils % % Lymphocytes % % Monocytes % % Eosinophils % % Basophils % % Immature Gran # (0.00-0.04) 10*3/uL Neutrophils # (1.80-7.70) 10*3/uL Lymphocytes # (0.90-5.00) 10*3/uL Monocytes # (0.20-1.00) 10*3/uL Eosinophils # (0.04-0.35) 10*3/uL Basophils # (0.00-0.10) 10*3/uL PT (10.0-12.5) sec INR (<1.2) APTT (22.0-30.0) sec Sodium (137-145) mmol/L Potassium (3.5-5.1) mmol/L Chloride (98-107) mmol/L Carbon Dioxide (22-30) mmol/L Anion Gap mmol/L BUN (7-17) mg/dL Creatinine (0.52-1.04) mg/dL Est GFR (CKD-EPI)AfAm (>60 ml/min/1.73 sqM) Est GFR (CKD-EPI)NonAf (>60 ml/min/1.73 sqM) Glucose (74-99) mg/dL Plasma Lactic Acid Joel 0.6 L (0.7-2.0) mmol/L Calcium (8.4-10.2) mg/dL Magnesium (1.6-2.3) mg/dL Total Bilirubin (0.2-1.3) mg/dL AST (14-36) U/L ALT (4-34) U/L Alkaline Phosphatase (38-126) U/L Troponin I <0.012 (0.000-0.034) ng/mL NT-Pro-B Natriuret Pep pg/mL Total Protein (6.3-8.2) g/dL Albumin (3.5-5.0) g/dL Influenza Type A (PCR) Not Detected (Not Detectd) Influenza Type B (PCR) Not Detected (Not Detectd) RSV (PCR) Not Detected (Not Detectd) SARS-CoV-2 (PCR) Not Detected (Not Detectd) Disposition Clinical Impression: COPD exacerbation, Hyponatremia Disposition: ADMITTED IP TO THIS [facility] Condition: Stable Decision to Admit Reason: Admit from EC Decision Date: 11/09/24
[2024-11-09] MEDS: methylPREDNISolone SOD SUCCI 125 MG/2 ML VIAL IV STA (15:08)
[2024-11-09] MEDS: IPRATROPIUM-ALBUTEROL 3 ML NEB INHALATION STA (15:25)
[2024-11-09 15:33] LABS: Basophils # (A) 0.06 10*3/uL (0.00-0.10); Basophils % (A) 0.8 %; Eosinophils # (A) 0.22 10*3/uL (0.04-0.35); Eosinophils % (A) 3.1 %; HCT 36.6 % (37.2-46.3); HGB 11.7 g/dL (12.0-15.0); Lymphocytes % (A) 25.4 %; MCV 93.8 fL (80.0-97.0); Mean Platelet Volume 8.5 fL (9.5-12.2); Monocytes # (A) 1.14 10*3/uL (0.20-1.00); Monocytes % (A) 16.1 %; Neutrophils # (A) 3.82 10*3/uL (1.80-7.70); Platelet Count 202 10*3/uL (140-440); RDW 12.5 % (11.5-14.5); WBC 7.08 10*3/uL (4.50-10.00)
--- NOTE | 2024-11-09 15:35 | XR ---
EXAMINATION TYPE: XR chest 2V DATE OF EXAM: 11/09/2024 2:43 PM COMPARISON: 10/17/2024 CLINICAL INDICATION: Female, 69 years old with history of difficulty breathing, TECHNIQUE: XR chest 2V view(s) obtained. FINDINGS: The heart size is normal. The pulmonary vasculature is normal. There is mild infiltrate at the right base. Correlate for atelectasis or developing pneumonia. Findin gs are persistent from prior exam. IMPRESSION: 1. Persistent right lower lobe infiltrate. Correlate for atelectasis or pneumonia. Follow-up to clear ing is recommended. [facility], , 11/09/2024 3:33 PM
[2024-11-09 15:48] LABS: INR 0.9 (<1.2); Prothrombin Time 10.3 sec (10.0-12.5)
[2024-11-09 15:51] LABS: ALT 20 U/L (4-34); AST 25 U/L (14-36); African American GFR (CKD) >90 (>60 ml/min/1.73 sqM); Albumin 3.6 g/dL (3.5-5.0); Alkaline Phosphatase 65 U/L (38-126); Blood Urea Nitrogen 20 mg/dL (7-17); Calcium 9.7 mg/dL (8.4-10.2); Chloride 88 mmol/L (98-107); Glucose 96 mg/dL (74-99); Magnesium 1.6 mg/dL (1.6-2.3); Non-African American GFR(CKD) >90 (>60 ml/min/1.73 sqM); Potassium 4.8 mmol/L (3.5-5.1); Sodium 131 mmol/L (137-145); Total Bilirubin 0.4 mg/dL (0.2-1.3)
[2024-11-09 15:57] LABS: Anion Gap 7 mmol/L
[2024-11-09 15:58] LABS: NT-Pro-B-Type Natriuretic Pept 923 pg/mL
[2024-11-09 16:03] LABS: Carbon Dioxide 36 mmol/L (22-30)
[2024-11-09 16:09] LABS: Influenza A Not Detected (Not Detectd); Influenza B Not Detected (Not Detectd); RSV Not Detected (Not Detectd)
[2024-11-09] MEDS: LEVOFLOXACIN 750MG-D5W PMX 750 MG in DEXTROSE/WATER 1 150ML.BAG IVPB STA ×2 (16:32→17:01)
[2024-11-09] MEDS ORDERED: NALOXONE 0.4 MG/ML 1 ML VIAL IV PRN (16:43)
[2024-11-09] MEDS: LORazepam 2 MG/ML INJ IV STA (16:58)
[2024-11-09] MEDS ORDERED: LEVOFLOXACIN 750MG-D5W PMX 750 MG in DEXTROSE/WATER 1 150ML.BAG IVPB SCH (17:00)
[2024-11-09] MEDS: SODIUM CHLORIDE 0.9% 1,000 ML IV SCH (17:47)
[2024-11-09] MEDS ORDERED: IPRATROPIUM-ALBUTEROL 3 ML NEB INHALATION PRN (19:12)
[2024-11-09] MEDS: IPRATROPIUM-ALBUTEROL 3 ML NEB INHALATION SCH (19:18)
[2024-11-09] MEDS: KETOROLAC 15 MG/ML 1 ML VIAL IVP PRN (21:01)
[2024-11-10] MEDS ORDERED: IPRATROPIUM-ALBUTEROL 3 ML NEB INHALATION SCH
[2024-11-10] MEDS: clonazePAM 0.5 MG TAB PO SCH (00:55)
[2024-11-10 01:00] LABS: Basophils # (A) 0.02 10*3/uL (0.00-0.10); Basophils % (A) 0.5 %; HCT 36.7 % (37.2-46.3); HGB 11.7 g/dL (12.0-15.0); Lymphocytes # (A) 0.46 10*3/uL (0.90-5.00); Lymphocytes % (A) 12.1 %; MCH 29.9 pg (27.0-32.0); MCHC 31.9 g/dL (32.0-37.0); MCV 93.9 fL (80.0-97.0); Mean Platelet Volume 8.8 fL (9.5-12.2); Monocytes # (A) 0.09 10*3/uL (0.20-1.00); Monocytes % (A) 2.4 %; Neutrophils # (A) 3.19 10*3/uL (1.80-7.70); Neutrophils % (A) 84.2 %; Platelet Count 211 10*3/uL (140-440); RBC 3.91 10*6/uL (4.10-5.20); RDW 12.1 % (11.5-14.5); WBC 3.79 10*3/uL (4.50-10.00)
[2024-11-10 01:17] LABS: ALT 16 U/L (4-34); AST 21 U/L (14-36); African American GFR (CKD) >90 (>60 ml/min/1.73 sqM); Albumin 3.1 g/dL (3.5-5.0); Albumin/Globulin Ratio 1.4; Alkaline Phosphatase 56 U/L (38-126); Anion Gap 3 mmol/L; Blood Urea Nitrogen 20 mg/dL (7-17); Calcium 9.4 mg/dL (8.4-10.2); Carbon Dioxide 37 mmol/L (22-30); Chloride 89 mmol/L (98-107); Globulin 2.2 g/dL; Glucose 198 mg/dL (74-99); Non-African American GFR(CKD) >90 (>60 ml/min/1.73 sqM); Potassium 4.8 mmol/L (3.5-5.1); Sodium 129 mmol/L (137-145); Total Bilirubin 0.2 mg/dL (0.2-1.3); Total Protein 5.3 g/dL (6.3-8.2)
[2024-11-10] MEDS: ACETAMINOPHEN TAB 325 MG TAB PO PRN (04:59)
--- NOTE | 2024-11-10 05:08 | P.CNPUL ---
History of Present Illness Consult date: 11/10/24 Requesting physician: Luli Gonzales Reason for consult: COPD Chief complaint: Lumbar back pain History of present illness: Patient is a 69-year-old female with past medical history significant for COPD, chronic hypoxemic respiratory failure on 3 L/min nasal cannula, chronic ongoing tobacco dependence, heart failure, pulmonary embolism, hypothyroidism, fibromyalgia, chronic lower back pain. Of note, had a recent hospitalization earlier in October for her lower back pain. Notably, found to be hyponatremic during this hospitalization, felt possibly related to Lasix and hypovolemia. Patient returns back to the emergency department yesterday afternoon with difficulty in breathing. Pulmonary consult was placed for acute COPD exacerbation. Workup in the emergency department including a chest x-ray showing a small chronic right lower lobe pleural effusion with associated atelectasis. There is a chronic elevated left hemidiaphragm. Labs on admission including a CBC with a WBC count of 7, hemoglobin 11.7, platelets 202. CMP: Sodium 131, potassium 4.8, chloride 88, serum bicarb 36, BUN 20, creatinine 0.63, glucose 96. Lactic 0.6. Troponin less than 0.012. NT proBNP only 923. Viral screen negative for influenza A/B, RSV, COVID. Patient currently being evaluated in the general medical floor. She is anxious and teary-eyed. States that her difficulty in breathing is due to lower back pain. Feels she cannot take a deep breath. She is requesting additional pain medication. Does report congested cough with minimal yellow sputum production. No documented fevers. Denies sick contacts. Denies chest pain, heart palpitations, syncopal events. Denies recent sick contacts. Vital signs are stable. Review of Systems CONSTITUTIONAL: Denies any recent significant weight loss or weight gain. EYES: Denies change in vision. EARS, NOSE, MOUTH, THROAT: Denies headaches, denies sore throat. CARDIOVASCULAR: Denies chest pain, palpitations or syncopal episodes. RESPIRATORY: See HPI GASTROINTESTINAL: Denies change in appetite, denies abdominal pain GENITOURINARY: Denies hematuria, denies infections. MUSKULOSKELETAL: Endorses chronic lumbar back pain. Denies any lower extremity weakness, saddle anesthesia or bowel or bladder control. INTEGUMENTARY: Denies rash, denies eczema. NEUROLOGICAL: Denies recent memory loss, no recent seizure activity. PSYCHIATRIC: Positive for anxiety. HEMATOLOGIC/LYMPHATIC: Denies anemia, denies enlarged lymph nodes. 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 History of Any Multi-Drug Resistant Organisms: MRSA Date of last positivie culture/infection: 03/2024 MDRO Source:: Knee Past Surgical History: Bariatric Surgery, Section, Cholecystectomy, Hysterectomy, Tonsillectomy Additional Past Surgical History / Comment(s): EGD, colonoscopies, gastric bypass, surgery for deviated septum, left cataract removal (having laser procedure on that eye 11/24/23) Past Anesthesia/Blood Transfusion Reactions: Previous Problems w/ Anesthesia Additional Past Anesthesia/Blood Transfusion Reaction / Comment(s): itching after hysterectomy, some kind of breathing problem after gastric bypass-not sure what happened Past Psychological History: Anxiety, Bipolar, Depression, Panic Disorder Smoking Status: Current every day smoker Past Alcohol Use History: None Reported Additional Past Alcohol Use History / Comment(s): Pt started smoking in 1986 and quit when she went into [facility] 08/2021, started again and smokes about half a pack a day. Past Drug Use History: None Reported Additional Drug Use History / Comment(s): occassional cannabis use per pt - Past Family History Mother Family Medical History: Congestive Heart Failure (CHF), Hypertension Father History Unknown: Yes Additional Family Medical History / Comment(s): Father at the age of 45 yrs d/t having had rheumatic fever as a child and heart valve disease. Medications and Allergies Home Medications Medication Instructions Recorded Confirmed Type Montelukast [Singulair] 10 mg PO HS 12/17/13 11/09/24 History Levothyroxine Sodium [Synthroid] 150 mcg PO DAILY 03/29/20 11/09/24 History Famotidine [Pepcid] 20 mg PO BID 09/03/21 11/09/24 History Tamsulosin [Flomax] 0.4 mg PO DAILY 10/26/21 11/09/24 History Ipratropium-Albuterol Nebulize 3 ml INHALATION RT-QID 11/13/22 11/09/24 History [Duoneb 0.5 mg-3 mg/3 ml Soln] Albuterol Inhaler [Ventolin Hfa 2 puff INHALATION RT-QID PRN #1 11/17/22 11/09/24 Rx Inhaler] each clonazePAM [KlonoPIN ODT] 0.25 mg PO HS 12/12/23 11/09/24 History lamoTRIgine [LaMICtal] 100 mg PO BID 03/18/24 11/09/24 History Metoprolol Tartrate [Lopressor] 25 mg PO BID 05/16/24 11/09/24 History Divalproex ER [Depakote ER] 250 mg PO BID #60 tab 05/26/24 11/09/24 Rx Gabapentin 300 mg PO TID 06/01/24 11/09/24 History Acetaminophen Tab [Tylenol] 650 mg PO Q6HR PRN tab 06/02/24 11/09/24 Rx busPIRone HCL [Buspar] 30 mg PO BID 06/09/24 11/09/24 History Furosemide [Lasix] 20 mg PO DAILY #30 tab 06/22/24 11/09/24 Rx Fluticasone/Umeclidin/Vilanter 1 puff INHALATION RT-DAILY 10/17/24 11/09/24 History [Trelegy Ellipta 200-62.5-25] OLANZapine 15 mg PO HS 10/17/24 11/09/24 History Venlafaxine HCl [Effexor XR] 150 mg PO DAILY 10/17/24 11/09/24 History amLODIPine [Norvasc] 5 mg PO BID 30 Days #60 tab 10/21/24 11/09/24 Rx guaiFENesin [Mucinex] 600 mg PO Q12HR 7 Days #14 tab 10/21/24 11/09/24 Rx lisinopriL [Zestril] 10 mg PO DAILY 30 Days #30 tab 10/21/24 11/09/24 Rx Allergies Allergy/AdvReac Type Severity Reaction Status Date / Time codeine Allergy Unknown Verified 11/09/24 16:54 Childhood Penicillins Allergy Rash/Hives Verified 11/09/24 16:54 Sulfa (Sulfonamide Allergy Rash/Hives Verified 11/09/24 16:54 Antibiotics) Physical Exam Vitals: Vital Signs Temp Pulse Pulse Resp BP BP Pulse Ox 11/10/24 00:33 98.6 F 78 18 160/75 94 L 11/09/24 20:00 98.2 F 90 20 158/72 92 L 11/09/24 19:41 98.2 F 95 18 163/78 94 L 11/09/24 19:22 95 11/09/24 19:17 90 11/09/24 16:45 71 22 168/70 92 L 11/09/24 15:36 74 11/09/24 15:25 72 11/09/24 14:08 98.3 F 72 18 159/74 90 L Intake and Output 11/09/24 11/09/24 11/10/24 14:59 22:59 06:59 Other: Voiding Method External Catheter Weight 77.111 kg 77.111 kg GENERAL EXAM: Anxious and tearful, 69-year-old female, on 3 L nasal cannula, not in any respiratory distress. HEAD: Normocephalic. EYES: Normal reaction of pupils, equal size. NOSE: Clear with pink turbinates. THROAT: No erythema or exudates. NECK: No masses, no JVD. CHEST: No chest wall deformity. LUNGS: Equal air entry with scattered rhonchi. CVS: S1 and S2 normal with no audible murmur, regular rhythm. ABDOMEN: No hepatosplenomegaly, normal bowel sounds, no guarding or rigidity. SPINE: No scoliosis or deformity SKIN: No rashes CENTRAL NERVOUS SYSTEM: No focal deficits, tone is normal in all 4 extremities. EXTREMITIES: There is no peripheral edema. No clubbing, no cyanosis. Peripheral pulses are intact. Results - Laboratory Findings CBC and BMP: 11/10/24 00:35 11/10/24 00:35 PT/INR, D-dimer PT 10.3 sec (10.0-12.5) 11/09/24 15:06 INR 0.9 (<1.2) 11/09/24 15:06 Abnormal lab findings: Abnormal Labs 11/09/24 11/09/24 11/09/24 15:06 15:06 15:06 WBC RBC 3.90 L Hgb 11.7 L Hct 36.6 L MCHC MPV 8.5 L Lymphocytes # Monocytes # 1.14 H Eosinophils # Sodium 131 L Chloride 88 L Carbon Dioxide 36 H BUN 20 H Creatinine Glucose Plasma Lactic Acid Joel 0.6 L Total Protein 6.0 L Albumin 11/10/24 11/10/24 00:35 00:35 WBC 3.79 L RBC 3.91 L Hgb 11.7 L Hct 36.7 L MCHC 31.9 L MPV 8.8 L Lymphocytes # 0.46 L Monocytes # 0.09 L Eosinophils # 0.00 L Sodium 129 L Chloride 89 L Carbon Dioxide 37 H BUN 20 H Creatinine 0.51 L Glucose 198 H Plasma Lactic Acid Joel Total Protein 5.3 L Albumin 3.1 L - Diagnostic Findings Chest x-ray: image reviewed Assessment and Plan Assessment: Acute COPD exacerbation Chronic left hemidiaphragmatic elevation contributing to her chronic shortness of breath Chronic small right pleural effusion with associated atelectasis or scarring Acute on chronic dyspnea, secondary to a combination of above Chronic hypoxemic respiratory failure, maintained on 3 L of oxygen by nasal cannula Chronic hyponatremia, appears euvolemic, previously maintained on salt tablets, sodium 129 History of mediastinal lymphadenopathy History of chronic tobacco dependence History of marijuana use Chronic lumbar back pain with severe scoliosis with severe degenerative disc disease, disc herniation of L3-S1 with cervical canal stenosis Hypothyroidism History of hypertension History of gastric bypass surgery Bipolar disorder with anxiety Fibromyalgia Plan: Patient's medications, labs, chest x-ray reviewed Currently on 3 L/min nasal cannula, which she wears 08/02 at home Chest x-ray findings essentially stable, no acute process noted Previously started on Levaquin in the ED Afebrile, no leukocytosis. Viral 4 Plex negative for influenza A/B, RSV, COVID Check procalcitonin level, and manage accordingly Continue Symbicort and DuoNeb updrafts [id number], Symbicort inhaler, and IV Solu-Medrol She is requesting pain medication for her chronic lumbar back pain, previously started on IV Toradol in the ED Educated regarding the importance of smoking cessation We will continue to follow I have personally seen and examined the patient, performed the documentation and the assessment and plan as written. Number of minutes spent on the visit:20 On 11/10/2024, the patient is being seen in joint evaluation along with the nurse practitioner. The patient was evaluated in 31 minutes. I have seen this patient during previous hospitalizations. She is known to have COPD. She is also known to have chronic elevation of the left hemidiaphragm probably related to right hemidiaphragmatic paralysis. She also has chronic atelectatic changes and scarring in the right lower lobe area. The patient has a baseline FEV1 of 64% of predicted based on the previous spirometry that was done in our office. She is also oxygen dependent. She has also multiple comorbidities including bi polar disorder and chronic anxiety, chronic fibromyalgia, chronic pain, hypothyroidism and hypertension. She is a chronic smoker and she also smokes marijuana. She has previous history of cervical spinal stenosis and scoliosis of the spine, irritable bowel syndrome, colonic polyps and she has undergone previous gastric bypass surgery. The patient has been also hospitalized in the past for hyponatremia. In any rate, during this current hospitalization, the presentation is more typical of an underlying COPD exacerbation. The white cell count is not elevated at 3.7. Hemoglobin is stable at 11.7 and a platelet count is also stable at 211. Sodium level was noted to be low at 129. BUN is 2 0 with a creatinine of 0.5. Bicarb is at 37. Procalcitonin level is 0.22. Troponins are negative and the proBNP level is 923. The patient is currently on oxygen and she is on 4 L with a pulse ox of 94%. She is on a combination of DuoNeb nebulized treatments [id number], she is also on Levaquin as an empiric antibiotic coverage and she is maintained as a combination of Spiriva and Symbicort and DuoNeb treatments [id number]. She is on IV Solu-Medrol 60 mg every 6 hours. IV fluids are currently at KVO and the rest of the home medications have been all resumed. Her previous echocardiogram was from 2023 indicating a preserved LV function. Continue same treatment. Repeat a chest x- ray within next 24 to 48 hours. Shortness of breath is improved and she is complaining of chronic pain. Viral screen has been negative. Time with Patient: Greater than 30
[2024-11-10] MEDS: methylPREDNISolone SOD SUCCI 125 MG/2 ML VIAL IV SCH (06:41)
[2024-11-10] MEDS: SYMBICORT 160-4.5 MCG INHALER INHALATION SCH (09:06)
[2024-11-10] MEDS: hydrALAZINE HCL 20 MG/ML 1 ML VIAL IVP STA (16:37)
[2024-11-10] MEDS: LEVOFLOXACIN 750MG-D5W PMX 750 MG in DEXTROSE/WATER 1 150ML.BAG IVPB SCH (16:37)
[2024-11-10] MEDS: GABAPENTIN 300 MG CAP PO SCH (16:37)
[2024-11-10] MEDS: HYDROcodone/APAP 5-325MG 1 EACH TAB PO PRN (16:38)
[2024-11-10] MEDS: MONTELUKAST 10 MG TAB PO SCH (22:08)
[2024-11-10] MEDS: guaiFENesin 600 MG TABLET.ER PO SCH (22:08)
[2024-11-10] MEDS: METOPROLOL TARTRATE 25 MG TAB PO SCH (22:08)
[2024-11-10] MEDS: lamoTRIgine 100 MG TAB PO SCH (22:09)
[2024-11-10] MEDS: busPIRone HCl 10 MG TAB PO SCH (22:09)
[2024-11-10] MEDS: OLANZapine 7.5 MG TAB PO SCH (22:09)
[2024-11-10] MEDS: amLODIPine 5 MG TAB PO SCH (22:09)
[2024-11-10] MEDS: FAMOTIDINE 20 MG TAB PO SCH (22:09)
[2024-11-10] MEDS: DIVALPROEX ER 250 MG TAB.ER.24H PO SCH (22:10)
[2024-11-11] MEDS: LEVOTHYROXINE 75 MCG TAB PO SCH (05:34)
[2024-11-11] MEDS: lisinopriL 10 MG TAB PO SCH (07:40)
[2024-11-11] MEDS: TAMSULOSIN 0.4 MG CAP.ER.24H PO SCH (07:40)
[2024-11-11] MEDS: VENLAFAXINE HCL ER 150 MG CAP PO SCH (07:40)
[2024-11-11] MEDS: FUROSEMIDE 20 MG TAB PO SCH (07:40)
[2024-11-11] MEDS: TIOTROPIUM 2.5 MCG INHALER INHALATION SCH (08:47)
[2024-11-11 09:52] LABS: Basophils # (A) 0.01 X 10*3/uL (0.00-0.10); Basophils % (A) 0.1 %; Eosinophils # (A) 0 X 10*3/uL (0.04-0.35); Eosinophils % (A) 0 %; HCT 38.6 % (37.2-46.3); HGB 12.8 g/dL (12.0-15.0); Lymphocytes # (A) 0.77 X 10*3/uL (0.90-5.00); Lymphocytes % (A) 8.4 %; MCH 30.4 pg (27.0-32.0); MCHC 33.2 g/dL (32.0-37.0); MCV 91.7 FL (80.0-97.0); Mean Platelet Volume 8.9 FL (9.5-12.2); Monocytes # (A) 0.35 X 10*3/uL (0.20-1.00); Monocytes % (A) 3.8 %; NRBC Per 100 WBC 0 X 10*3/uL (0.00-0.01); Neutrophils # (A) 8.03 X 10*3/uL (1.80-7.70); Neutrophils % (A) 87.2 %; Platelet Count 245 X 10*3/uL (140-440); RBC 4.21 X 10*6/uL (4.10-5.20); WBC 9.21 X 10*3/uL (4.50-10.00)
[2024-11-11 12:17] LABS: Blood Urea Nitrogen 19.4 mg/dL (9.0-27.0); Calcium 8.9 mg/dL (8.7-10.3); Carbon Dioxide 30.7 mmol/L (21.6-31.8); Chloride 89 mmol/L (96-109); Glucose 192 mg/dL (70-110); Potassium 5.5 mmol/L (3.5-5.5); Sodium 128 mmol/L (135-145)
--- NOTE | 2024-11-11 14:39 | P.PN ---
Subjective Progress Note Date: 11/11/24 Patient is a 69-year-old female with past medical history significant for COPD, chronic hypoxemic respiratory failure on 3 L/min nasal cannula, chronic ongoing tobacco dependence, heart failure, pulmonary embolism, hypothyroidism, fibromyalgia, chronic lower back pain. Of note, had a recent hospitalization earlier in October for her lower back pain. Notably, found to be hyponatremic during this hospitalization, felt possibly related to Lasix and hypovolemia. Patient returns back to the emergency department yesterday afternoon with difficulty in breathing. Pulmonary consult was placed for acute COPD exacerbation. Workup in the emergency department including a chest x-ray showing a small chronic right lower lobe pleural effusion with associated atelectasis. There is a chronic elevated left hemidiaphragm. Labs on admission including a CBC with a WBC count of 7, hemoglobin 11.7, platelets 202. CMP: Sodium 131, potassium 4.8, chloride 88, serum bicarb 36, BUN 20, creatinine 0.63, glucose 96. Lactic 0.6. Troponin less than 0.012. NT proBNP only 923. Viral screen negative for influenza A/B, RSV, COVID. Patient currently being evaluated in the general medical floor. She is anxious and teary-eyed. States that her difficulty in breathing is due to lower back pain. Feels she cannot take a deep breath. She is requesting additional pain medication. Does report congested cough with minimal yellow sputum production. No documented fevers. Denies sick contacts. Denies chest pain, heart palpitations, syncopal events. Denies recent sick contacts. Vital signs are stable. 11/11/2024, the patient is being seen for a follow-up. Patient is doing well. Less bronchospastic and wheezy compared to yesterday. No significant respiratory distress. No significant sputum production. Less bronchospastic. No chest pain. No pleurisy or hemoptysis. The white cell count of 9.2 with a hemoglobin 12.8 and a platelet count of 245. Sodium is at 128, BUN is 19 with a creatinine 0.5. Remains on DuoNeb updrafts. Remains on Symbicort. Remains on IV Solu-Medrol 60 mg every 6 hours. Rest of the home medications were resumed and the patient is also on a course of Levaquin. Objective - Vital Signs Vital signs: Vital Signs Temp 97.9 F 11/11/24 07:30 Pulse 84 11/11/24 09:01 Resp 18 11/11/24 07:30 BP 190/82 11/11/24 07:30 Pulse Ox 95 11/11/24 08:48 FiO2 Intake & Output 11/10/24 11/11/24 11/11/24 18:59 06:59 18:59 Output Total 400 900 Balance -400 -900 Output: Urine 400 900 Other: Voiding Method External Catheter External Catheter - Exam GENERAL EXAM: Anxious and tearful, 69-year-old female, on 3 L nasal cannula, not in any respiratory distress. HEAD: Normocephalic. EYES: Normal reaction of pupils, equal size. NOSE: Clear with pink turbinates. THROAT: No erythema or exudates. NECK: No masses, no JVD. CHEST: No chest wall deformity. LUNGS: Equal air entry with scattered rhonchi. CVS: S1 and S2 normal with no audible murmur, regular rhythm. ABDOMEN: No hepatosplenomegaly, normal bowel sounds, no guarding or rigidity. SPINE: No scoliosis or deformity SKIN: No rashes CENTRAL NERVOUS SYSTEM: No focal deficits, tone is normal in all 4 extremities. EXTREMITIES: There is no peripheral edema. No clubbing, no cyanosis. Peripheral pulses are intact. - Labs CBC & Chem 7: 11/11/24 05:26 11/11/24 05:26 Labs: Abnormal Lab Results - Last 24 Hours (Table) 11/11/24 Range/Units 05:26 MPV 8.9 L (9.5-12.2) FL Immature Gran # 0.05 H (0.00-0.04) X 10*3/uL Neutrophils # 8.03 H (1.80-7.70) X 10*3/uL Lymphocytes # 0.77 L (0.90-5.00) X 10*3/uL Eosinophils # 0 L (0.04-0.35) X 10*3/uL Assessment and Plan Assessment: Acute COPD exacerbation, improving Chronic left hemidiaphragmatic elevation contributing to her chronic shortness of breath Chronic small right pleural effusion with associated atelectasis or scarring Acute on chronic dyspnea, secondary to a combination of above Chronic hypoxemic respiratory failure, maintained on 3 L of oxygen by nasal cannula Chronic hyponatremia, appears euvolemic, previously maintained on salt tablets, sodium 129 History of mediastinal lymphadenopathy History of chronic tobacco dependence History of marijuana use Chronic lumbar back pain with severe scoliosis with severe degenerative disc disease, disc herniation of L3-S1 with cervical canal stenosis Hypothyroidism History of hypertension History of gastric bypass surgery Bipolar disorder with anxiety Fibromyalgia Plan: Clinically has shortness of breath compared to yesterday the patient is stable Currently on 3 L/min nasal cannula, which she wears 08/02 at home Chest x-ray findings essentially stable, no acute process noted Completed course of Levaquin Afebrile, no leukocytosis. Viral 4 Plex negative for influenza A/B, RSV, COVID Check procalcitonin level was at 0.22 Continue Symbicort and DuoNeb updrafts [id number], Symbicort inhaler, and IV Solu-Medrol for another 24 to 48 hours She is requesting pain medication for her chronic lumbar back pain, previously started on IV Toradol in the ED Educated regarding the importance of smoking cessation We will continue to follow
[2024-11-12] MEDS: HYDROcodone/APAP 5-325MG 1 EACH TAB PO PRN (01:58)
--- NOTE | 2024-11-12 19:45 | P.PN ---
Subjective Progress Note Date: 11/12/24 Patient is a 69-year-old female with past medical history significant for COPD, chronic hypoxemic respiratory failure on 3 L/min nasal cannula, chronic ongoing tobacco dependence, heart failure, pulmonary embolism, hypothyroidism, fibromyalgia, chronic lower back pain. Of note, had a recent hospitalization earlier in October for her lower back pain. Notably, found to be hyponatremic during this hospitalization, felt possibly related to Lasix and hypovolemia. Patient returns back to the emergency department yesterday afternoon with difficulty in breathing. Pulmonary consult was placed for acute COPD exacerbation. Workup in the emergency department including a chest x-ray showing a small chronic right lower lobe pleural effusion with associated atelectasis. There is a chronic elevated left hemidiaphragm. Labs on admission including a CBC with a WBC count of 7, hemoglobin 11.7, platelets 202. CMP: Sodium 131, potassium 4.8, chloride 88, serum bicarb 36, BUN 20, creatinine 0.63, glucose 96. Lactic 0.6. Troponin less than 0.012. NT proBNP only 923. Viral screen negative for influenza A/B, RSV, COVID. Patient currently being evaluated in the general medical floor. She is anxious and teary-eyed. States that her difficulty in breathing is due to lower back pain. Feels she cannot take a deep breath. She is requesting additional pain medication. Does report congested cough with minimal yellow sputum production. No documented fevers. Denies sick contacts. Denies chest pain, heart palpitations, syncopal events. Denies recent sick contacts. Vital signs are stable. 11/11/2024, the patient is being seen for a follow-up. Patient is doing well. Less bronchospastic and wheezy compared to yesterday. No significant respiratory distress. No significant sputum production. Less bronchospastic. No chest pain. No pleurisy or hemoptysis. The white cell count of 9.2 with a hemoglobin 12.8 and a platelet count of 245. Sodium is at 128, BUN is 19 with a creatinine 0.5. Remains on DuoNeb updrafts. Remains on Symbicort. Remains on IV Solu-Medrol 60 mg every 6 hours. Rest of the home medications were resumed and the patient is also on a course of Levaquin. On 11/13/2019, the patient is coughing up some yellowish sputum. Remains bronchospastic and wheezy. Continues to struggle with acute COPD exacerbation. No fever or chills. No chest pain or hemoptysis. No pleurisy. She remains on oxygen at 3 L with a pulse ox of 95%. The white cell count of 9.2 with a hemoglobin 12.8 and a platelet count of 245. Sodium level is at 128, BUN is 19 with a creatinine 0.5. Potassium level is at 5.5. Remains on DuoNeb updrafts, remains on Symbicort, remains on IV Solu-Medrol 60 mg every 6 hours. Rest of the medications are essentially unchanged. Objective - Vital Signs Vital signs: Vital Signs Temp 98.4 F 11/12/24 12:56 Pulse 84 11/12/24 15:33 Resp 18 11/12/24 12:56 BP 92/51 11/12/24 12:56 Pulse Ox 95 11/12/24 12:56 FiO2 Intake & Output 11/12/24 11/12/24 11/13/24 06:59 18:59 06:59 Output Total 550 Balance -550 Output: Urine 550 Other: Voiding Method External Catheter # Voids 1 - Exam GENERAL EXAM: Anxious and tearful, 69-year-old female, on 3 L nasal cannula, not in any respiratory distress. HEAD: Normocephalic. EYES: Normal reaction of pupils, equal size. NOSE: Clear with pink turbinates. THROAT: No erythema or exudates. NECK: No masses, no JVD. CHEST: No chest wall deformity. LUNGS: Equal air entry with scattered rhonchi. CVS: S1 and S2 normal with no audible murmur, regular rhythm. ABDOMEN: No hepatosplenomegaly, normal bowel sounds, no guarding or rigidity. SPINE: No scoliosis or deformity SKIN: No rashes CENTRAL NERVOUS SYSTEM: No focal deficits, tone is normal in all 4 extremities. EXTREMITIES: There is no peripheral edema. No clubbing, no cyanosis. Peripheral pulses are intact. - Labs CBC & Chem 7: 11/11/24 05:26 11/11/24 05:26 Assessment and Plan Assessment: Acute COPD exacerbation Chronic left hemidiaphragmatic elevation contributing to her chronic shortness of breath Chronic small right pleural effusion with associated atelectasis or scarring Acute on chronic dyspnea, secondary to a combination of above Chronic hypoxemic respiratory failure, maintained on 3 L of oxygen by nasal cannula Chronic hyponatremia, appears euvolemic, previously maintained on salt tablets, sodium 129 History of mediastinal lymphadenopathy History of chronic tobacco dependence History of marijuana use Chronic lumbar back pain with severe scoliosis with severe degenerative disc disease, disc herniation of L3-S1 with cervical canal stenosis Hypothyroidism History of hypertension History of gastric bypass surgery Bipolar disorder with anxiety Fibromyalgia Plan: Clinically has shortness of breath compared to yesterday the patient is stable, limited improvement over the past 24 hours Currently on 3 L/min nasal cannula, which she wears 08/02 at home Chest x-ray findings essentially stable, no acute process noted check sputum Gram stain and culture Afebrile, no leukocytosis. Viral 4 Plex negative for influenza A/B, RSV, COVID Check procalcitonin level was at 0.22 Continue Symbicort and DuoNeb updrafts [id number], Symbicort inhaler continue IV Solu-Medrol Educated regarding the importance of smoking cessation We will continue to follow
--- NOTE | 2024-11-12 21:11 | P.HPIM ---
History of Present Illness H&P Date: 11/10/24 Chief Complaint: Shortness of breath 69-year-old female with multiple comorbid conditions including COPD/chronic hypoxic respiratory failure on 3 L nasal cannula, heart failure, and history of PE presenting to the emergency department with complaints of difficulty in breathing. Patient states that over the past 3 days she has been feeling increasingly short of breath that she is not able to take in a deep breath. Patient states that her chest feels tight when she is attempting to take in a deep breath. States that she has been wheezing and having a worsening product kae cough. She endorses mild chest pressure with inspiration. She denies heart palpitations, fevers, chills, rhinorrhea, congestion. She denies abdominal pain, nausea, or vomiting. She has been attempting to use her breathing treatments at home with minimal relief in shortness of breath. Patient states that she takes Lasix for her heart failure every other day. Blood work completed in ED reveals a WBC of 3.7, hemoglobin of 11.7 platelet count of 211, sodium 129, potassium 4.8, BUN/creatinine of 20/0.51, blood glucose of 198 EKG reveals normal sinus rhythm without any acute ST or T wave changes Chest x-ray is negative for any acute pulmonary process Review of Systems REVIEW OF SYSTEMS: CONSTITUTIONAL: No fever, no malaise, no fatigue. HEENT: No recent visual problems or hearing problems. Denied any sore throat. CARDIOVASCULAR: No chest pain, orthopnea, PND, no palpitations, no syncope. PULMONARY: No shortness of breath, no cough, no hemoptysis. GASTROINTESTINAL: No diarrhea, no nausea, no vomiting, no abdominal pain. NEUROLOGICAL: No headaches, no weakness, no numbness. HEMATOLOGICAL: Denies any bleeding or petechiae. GENITOURINARY: Denies any burning micturition, frequency, or urgency. MUSCULOSKELETAL/RHEUMATOLOGICAL: Denies any joint pain, swelling, or any muscle pain. ENDOCRINE: Denies any polyuria or polydipsia. The rest of the 14-point review of systems is negative. 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 History of Any Multi-Drug Resistant Organisms: MRSA Date of last positivie culture/infection: 03/2024 MDRO Source:: Knee Past Surgical History: Bariatric Surgery, Section, Cholecystectomy, Hysterectomy, Tonsillectomy Additional Past Surgical History / Comment(s): EGD, colonoscopies, gastric bypass, surgery for deviated septum, left cataract removal (having laser procedure on that eye 11/24/23) Past Anesthesia/Blood Transfusion Reactions: Previous Problems w/ Anesthesia Additional Past Anesthesia/Blood Transfusion Reaction / Comment(s): itching after hysterectomy, some kind of breathing problem after gastric bypass-not sure what happened Past Psychological History: Anxiety, Bipolar, Depression, Panic Disorder Smoking Status: Current every day smoker Past Alcohol Use History: None Reported Past Drug Use History: None Reported - Past Family History Mother Family Medical History: Congestive Heart Failure (CHF), Hypertension Father History Unknown: Yes Additional Family Medical History / Comment(s): Father at the age of 45 yrs d/t having had rheumatic fever as a child and heart valve disease. Medications and Allergies Home Medications Medication Instructions Recorded Confirmed Type Montelukast [Singulair] 10 mg PO HS 12/17/13 11/09/24 History Levothyroxine Sodium [Synthroid] 150 mcg PO DAILY 03/29/20 11/09/24 History Famotidine [Pepcid] 20 mg PO BID 09/03/21 11/09/24 History Tamsulosin [Flomax] 0.4 mg PO DAILY 10/26/21 11/09/24 History Ipratropium-Albuterol Nebulize 3 ml INHALATION RT-QID 11/13/22 11/09/24 History [Duoneb 0.5 mg-3 mg/3 ml Soln] Albuterol Inhaler [Ventolin Hfa 2 puff INHALATION RT-QID PRN #1 11/17/22 11/09/24 Rx Inhaler] each clonazePAM [KlonoPIN ODT] 0.25 mg PO HS 12/12/23 11/09/24 History lamoTRIgine [LaMICtal] 100 mg PO BID 03/18/24 11/09/24 History Metoprolol Tartrate [Lopressor] 25 mg PO BID 05/16/24 11/09/24 History Divalproex ER [Depakote ER] 250 mg PO BID #60 tab 05/26/24 11/09/24 Rx Gabapentin 300 mg PO TID 06/01/24 11/09/24 History Acetaminophen Tab [Tylenol] 650 mg PO Q6HR PRN tab 06/02/24 11/09/24 Rx busPIRone HCL [Buspar] 30 mg PO BID 06/09/24 11/09/24 History Furosemide [Lasix] 20 mg PO DAILY #30 tab 06/22/24 11/09/24 Rx Fluticasone/Umeclidin/Vilanter 1 puff INHALATION RT-DAILY 10/17/24 11/09/24 History [Trelegy Ellipta 200-62.5-25] OLANZapine 15 mg PO HS 10/17/24 11/09/24 History Venlafaxine HCl [Effexor XR] 150 mg PO DAILY 10/17/24 11/09/24 History amLODIPine [Norvasc] 5 mg PO BID 30 Days #60 tab 10/21/24 11/09/24 Rx guaiFENesin [Mucinex] 600 mg PO Q12HR 7 Days #14 tab 10/21/24 11/09/24 Rx lisinopriL [Zestril] 10 mg PO DAILY 30 Days #30 tab 10/21/24 11/09/24 Rx Allergies Allergy/AdvReac Type Severity Reaction Status Date / Time codeine Allergy Unknown Verified 11/09/24 16:54 Childhood Penicillins Allergy Rash/Hives Verified 11/09/24 16:54 Sulfa (Sulfonamide Allergy Rash/Hives Verified 11/09/24 16:54 Antibiotics) Physical Exam Vitals: Vital Signs Temp Pulse Pulse Resp BP BP Pulse Ox 11/10/24 09:23 96 11/10/24 09:06 96 11/10/24 07:07 98.7 F 79 20 183/84 94 L 11/10/24 00:33 98.6 F 78 18 160/75 94 L 11/09/24 20:00 98.2 F 90 20 158/72 92 L 11/09/24 19:41 98.2 F 95 18 163/78 94 L 11/09/24 19:22 95 11/09/24 19:17 90 11/09/24 16:45 71 22 168/70 92 L 11/09/24 15:36 74 11/09/24 15:25 72 11/09/24 14:08 98.3 F 72 18 159/74 90 L Intake and Output 11/09/24 11/10/24 11/10/24 22:59 06:59 14:59 Intake Total 360 Output Total 700 Balance -340 Intake: Oral 360 Output: Urine 700 Other: Voiding Method External Catheter # Voids 2 Weight 77.111 kg General appearance: alert, in no apparent distress Neck exam: Present: normal inspection. Absent: tenderness, meningismus, lymphadenopathy Respiratory exam: Present: wheezes, rhonchi, decreased breath sounds. Absent: normal lung sounds bilaterally, respiratory distress Cardiovascular Exam: Present: regular rate, normal rhythm, normal heart sounds. Absent: systolic murmur, diastolic murmur, rubs, gallop, clicks GI/Abdominal exam: Present: soft, normal bowel sounds. Absent: distended, tenderness, guarding, rebound, rigid Extremities exam: Present: normal inspection, full ROM, normal capillary refill. Absent: tenderness, pedal edema, joint swelling, calf tenderness Back exam: Present: normal inspection Skin exam: Present: warm, dry, intact, normal color. Absent: rash Results CBC & Chem 7: 11/11/24 05:26 11/11/24 05:26 Labs: Abnormal Lab Results - Last 24 Hours (Table) 11/09/24 11/09/24 11/09/24 Range/Units 15:06 15:06 15:06 WBC (4.50-10.00) 10*3/uL RBC 3.90 L (4.10-5.20) 10*6/uL Hgb 11.7 L (12.0-15.0) g/dL Hct 36.6 L (37.2-46.3) % MCHC (32.0-37.0) g/dL MPV 8.5 L (9.5-12.2) fL Lymphocytes # (0.90-5.00) 10*3/uL Monocytes # 1.14 H (0.20-1.00) 10*3/uL Eosinophils # (0.04-0.35) 10*3/uL Sodium 131 L (137-145) mmol/L Chloride 88 L (98-107) mmol/L Carbon Dioxide 36 H (22-30) mmol/L BUN 20 H (7-17) mg/dL Creatinine (0.52-1.04) mg/dL Glucose (74-99) mg/dL Plasma Lactic Acid Joel 0.6 L (0.7-2.0) mmol/L Total Protein 6.0 L (6.3-8.2) g/dL Albumin (3.5-5.0) g/dL 11/10/24 11/10/24 Range/Units 00:35 00:35 WBC 3.79 L (4.50-10.00) 10*3/uL RBC 3.91 L (4.10-5.20) 10*6/uL Hgb 11.7 L (12.0-15.0) g/dL Hct 36.7 L (37.2-46.3) % MCHC 31.9 L (32.0-37.0) g/dL MPV 8.8 L (9.5-12.2) fL Lymphocytes # 0.46 L (0.90-5.00) 10*3/uL Monocytes # 0.09 L (0.20-1.00) 10*3/uL Eosinophils # 0.00 L (0.04-0.35) 10*3/uL Sodium 129 L (137-145) mmol/L Chloride 89 L (98-107) mmol/L Carbon Dioxide 37 H (22-30) mmol/L BUN 20 H (7-17) mg/dL Creatinine 0.51 L (0.52-1.04) mg/dL Glucose 198 H (74-99) mg/dL Plasma Lactic Acid Joel (0.7-2.0) mmol/L Total Protein 5.3 L (6.3-8.2) g/dL Albumin 3.1 L (3.5-5.0) g/dL Thrombosis Risk Factor Assmnt - Choose All That Apply Other Risk Factors: Yes Each Risk Factor Represents 2 Points: Age 61-74 years Thrombosis Risk Factor Assessment Total Risk Factor Score: 2 Thrombosis Risk Factor Assessment Level: Low Risk Assessment and Plan Assessment: 1. Acute exacerbation COPD - Patient has been placed on IV Solu-Medrol; continue home dose of Symbicort; Singulair 10 mg daily - Patient has been placed on IV Levaquin - Continue with bronchodilator nebulizer treatments 4 times daily 2. Hyponatremia; patient has been previously maintained on salt tablets; sodium at 129 this morning; we will start on slow IV fluid hydration and monitor electrolytes closely 3. Chronic dyspnea; multifactorial related to chronic left hemidiaphragm elevation and chronic small right-sided pleural effusion 4. Chronic hypoxic respiratory failure; patient is maintained on O2 at 3 L per nasal cannula 5. Hypertension; amlodipine 5 mg daily; lisinopril 10 mg daily; metoprolol 25 mg twice daily 6. Hypothyroidism; levothyroxine 150 mcg daily 7. Chronic back pain; patient has severe degenerative disks disease with hernia tion and cervical spinal stenosis - Has been placed on [place] 10 mg every 6 hours as needed; Neurontin 300 mg 3 times daily - Patient has history of marijuana use 8. Anxiety/bipolar disorder; Klonopin 0.25 mg nightly; Depakote 250 mg twice daily; Lamictal 100 mg twice daily; Effexor 150 mg daily DVT prophylaxis; SCDs CODE STATUS; full code
--- NOTE | 2024-11-12 21:12 | P.PN ---
Subjective Progress Note Date: 11/11/24 69-year-old female with multiple comorbid conditions including COPD/chronic hypoxic respiratory failure on 3 L nasal cannula, heart failure, and history of PE presenting to the emergency department with complaints of difficulty in breathing. Patient states that over the past 3 days she has been feeling increasingly short of breath that she is not able to take in a deep breath. Patient states that her chest feels tight when she is attempting to take in a deep breath. States that she has been wheezing and having a worsening productive cough. She endorses mild chest pressure with inspiration. She denies heart palpitations, fevers, chills, rhinorrhea, congestion. She denies abdominal pain, nausea, or vomiting. She has been attempting to use her breathing treatments at home with minimal relief in shortness of breath. Patient states that she takes Lasix for her heart failure every other day. Blood work completed in ED reveals a WBC of 3.7, hemoglobin of 11.7 platelet count of 211, sodium 129, potassium 4.8, BUN/creatinine of 20/0.51, blood glucose of 198 EKG reveals normal sinus rhythm without any acute ST or T wave changes Chest x-ray is negative for any acute pulmonary process Objective - Vital Signs Vital signs: Vital Signs Temp 97.9 F 11/11/24 07:30 Pulse 84 11/11/24 09:01 Resp 18 11/11/24 07:30 BP 190/82 11/11/24 07:30 Pulse Ox 95 11/11/24 08:48 FiO2 Intake & Output 11/10/24 11/11/24 11/11/24 18:59 06:59 18:59 Output Total 400 900 Balance -400 -900 Output: Urine 400 900 Other: Voiding Method External Catheter External Catheter - Exam General appearance: alert, in no apparent distress Neck exam: Present: normal inspection. Absent: tenderness, meningismus, lymphadenopathy Respiratory exam: Present: wheezes, rhonchi, decreased breath sounds. Absent: normal lung sounds bilaterally, respiratory distress Cardiovascular Exam: Present: regular rate, normal rhythm, normal heart sounds. Absent: systolic murmur, diastolic murmur, rubs, gallop, clicks GI/Abdominal exam: Present: soft, normal bowel sounds. Absent: distended, tenderness, guarding, rebound, rigid Extremities exam: Present: normal inspection, full ROM, normal capillary refill. Absent: tenderness, pedal edema, joint swelling, calf tenderness Back exam: Present: normal inspection Skin exam: Present: warm, dry, intact, normal color. Absent: rash - Labs CBC & Chem 7: 11/11/24 05:26 11/11/24 05:26 Labs: Abnormal Lab Results - Last 24 Hours (Table) 11/11/24 Range/Units 05:26 MPV 8.9 L (9.5-12.2) FL Immature Gran # 0.05 H (0.00-0.04) X 10*3/uL Neutrophils # 8.03 H (1.80-7.70) X 10*3/uL Lymphocytes # 0.77 L (0.90-5.00) X 10*3/uL Eosinophils # 0 L (0.04-0.35) X 10*3/uL Assessment and Plan Assessment: 1. Acute exacerbation COPD - Patient has been placed on IV Solu-Medrol; continue home dose of Symbicort; Singulair 10 mg daily - Patient has been placed on IV Levaquin - Continue with bronchodilator nebulizer treatments 4 times daily 2. Hyponatremia; patient has been previously maintained on salt tablets; sodium at 129 this morning; we will start on slow IV fluid hydration and monitor electrolytes closely 3. Chronic dyspnea; multifactorial related to chronic left hemidiaphragm elevation and chronic small right-sided pleural effusion 4. Chronic hypoxic respiratory failure; patient is maintained on O2 at 3 L per nasal cannula 5. Hypertension; amlodipine 5 mg daily; lisinopril 10 mg daily; metoprolol 25 mg twice daily 6. Hypothyroidism; levothyroxine 150 mcg daily 7. Chronic back pain; patient has severe degenerative disks disease with herniation and cervical spinal stenosis - Has been placed on [place] 10 mg every 6 hours as needed; Neurontin 300 mg 3 times daily - Patient has history of marijuana use 8. Anxiety/bipolar disorder; Klonopin 0.25 mg nightly; Depakote 250 mg twice daily; Lamictal 100 mg twice daily; Effexor 150 mg daily DVT prophylaxis; SCDs CODE STATUS; full code
--- NOTE | 2024-11-12 21:14 | P.PN ---
Subjective Progress Note Date: 11/12/24 69-year-old female with multiple comorbid conditions including COPD/chronic hypoxic respiratory failure on 3 L nasal cannula, heart failure, and history of PE presenting to the emergency department with complaints of difficulty in breathing. Patient states that over the past 3 days she has been feeling increasingly short of breath that she is not able to take in a deep breath. Patient states that her chest feels tight when she is attempting to take in a deep breath. States that she has been wheezing and having a worsening productive cough. She endorses mild chest pressure with inspiration. She denies heart palpitations, fevers, chills, rhinorrhea, congestion. She denies abdominal pain, nausea, or vomiting. She has been attempting to use her breathing treatments at home with minimal relief in shortness of breath. Patient states that she takes Lasix for her heart failure every other day. Blood work completed in ED reveals a WBC of 3.7, hemoglobin of 11.7 platelet count of 211, sodium 129, potassium 4.8, BUN/creatinine of 20/0.51, blood glucose of 198 EKG reveals normal sinus rhythm without any acute ST or T wave changes Chest x-ray is negative for any acute pulmonary process 11/12/2024 -Patient is seen and evaluated in room at bedside; reports coughing up some yellowish sputum. Remains bronchospastic and wheezy. - She remains on oxygen at 3 L with a pulse ox of 95%. - white cell count of 9.2 with a hemoglobin 12.8 and a platelet count of 245. Sodium level is at 128, BUN is 19 with a creatinine 0.5. Potassium level is at 5.5. - Remains on DuoNeb updrafts, remains on Symbicort, remains on IV Solu-Medrol 60 mg every 6 hours. Rest of the medications are essentially unchanged. - Patient continues to smoke; counseling done - Plan is to continue with current management Objective - Vital Signs Vital signs: Vital Signs Temp 97.7 F 11/12/24 07:38 Pulse 80 11/12/24 08:05 Resp 19 11/12/24 07:38 BP 175/74 11/12/24 07:38 Pulse Ox 95 11/12/24 07:55 FiO2 Intake & Output 11/11/24 11/12/24 11/12/24 18:59 06:59 18:59 Output Total 875 550 Balance -875 -550 Output: Urine 875 550 Other: Voiding Method External Catheter # Voids 1 - Exam General appearance: alert, in no apparent distress Neck exam: Present: normal inspection. Absent: tenderness, meningismus, lymphadenopathy Respiratory exam: Present: wheezes, rhonchi, decreased breath sounds. Absent: normal lung sounds bilaterally, respiratory distress Cardiovascular Exam: Present: regular rate, normal rhythm, normal heart sounds. Absent: systolic murmur, diastolic murmur, rubs, gallop, clicks GI/Abdominal exam: Present: soft, normal bowel sounds. Absent: distended, tenderness, guarding, rebound, rigid Extremities exam: Present: normal inspection, full ROM, normal capillary refill. Absent: tenderness, pedal edema, joint swelling, calf tenderness Back exam: Present: normal inspection Skin exam: Present: warm, dry, intact, normal color. Absent: rash - Labs CBC & Chem 7: 11/11/24 05:26 11/11/24 05:26 Labs: Abnormal Lab Results - Last 24 Hours (Table) 11/11/24 Range/Units 05:26 Sodium 128 L (135-145) mmol/L Chloride 89 L (96-109) mmol/L Creatinine 0.5 L (0.6-1.5) mg/dL BUN/Creatinine Ratio 38.80 H (12.00-20.00) Ratio Glucose 192 H (70-110) mg/dL Assessment and Plan Assessment: 1. Acute exacerbation COPD - Patient has been placed on IV Solu-Medrol; continue home dose of Symbicort; Singulair 10 mg daily - Patient has been placed on IV Levaquin - Continue with bronchodilator nebulizer treatments 4 times daily 2. Hyponatremia; patient has been previously maintained on salt tablets; sodium at 129 this morning; we will start on slow IV fluid hydration and monitor electrolytes closely 3. Chronic dyspnea; multifactorial related to chronic left hemidiaphragm elevation and chronic small right-sided pleural effusion 4. Chronic hypoxic respiratory failure; patient is maintained on O2 at 3 L per nasal cannula 5. Hypertension; amlodipine 5 mg daily; lisinopril 10 mg daily; metoprolol 25 mg twice daily 6. Hypothyroidism; levothyroxine 150 mcg daily 7. Chronic back pain; patient has severe degenerative disks disease with herniation and cervical spinal stenosis - Has been placed on [place] 10 mg every 6 hours as needed; Neurontin 300 mg 3 times daily - Patient has history of marijuana use 8. Anxiety/bipolar disorder; Klonopin 0.25 mg nightly; Depakote 250 mg twice daily; Lamictal 100 mg twice daily; Effexor 150 mg daily DVT prophylaxis; SCDs CODE STATUS; full code
[2024-11-13 09:17] VITALS: RESP 20
[2024-11-13 11:32] LABS: African American GFR (CKD) >90 (>60 ml/min/1.73 sqM); Anion Gap 5 mmol/L; Blood Urea Nitrogen 23 mg/dL (7-17); Calcium 9.6 mg/dL (8.4-10.2); Carbon Dioxide 37 mmol/L (22-30); Chloride 89 mmol/L (98-107); Glucose 222 mg/dL (74-99); Non-African American GFR(CKD) >90 (>60 ml/min/1.73 sqM); Potassium 5.2 mmol/L (3.5-5.1); Sodium 131 mmol/L (137-145)
--- NOTE | 2024-11-13 12:28 | P.PN ---
Subjective Progress Note Date: 11/13/24 Patient is a 69-year-old female with past medical history significant for COPD, chronic hypoxemic respiratory failure on 3 L/min nasal cannula, chronic ongoing tobacco dependence, heart failure, pulmonary embolism, hypothyroidism, fibromyalgia, chronic lower back pain. Of note, had a recent hospitalization earlier in October for her lower back pain. Notably, found to be hyponatremic during this hospitalization, felt possibly related to Lasix and hypovolemia. Patient returns back to the emergency department yesterday afternoon with difficulty in breathing. Pulmonary consult was placed for acute COPD exacerbation. Workup in the emergency department including a chest x-ray showing a small chronic right lower lobe pleural effusion with associated atelectasis. There is a chronic elevated left hemidiaphragm. Labs on admission including a CBC with a WBC count of 7, hemoglobin 11.7, platelets 202. CMP: Sodium 131, potassium 4.8, chloride 88, serum bicarb 36, BUN 20, creatinine 0.63, glucose 96. Lactic 0.6. Troponin less than 0.012. NT proBNP only 923. Viral screen negative for influenza A/B, RSV, COVID. Patient currently being evaluated in the general medical floor. She is anxious and teary-eyed. States that her difficulty in breathing is due to lower back pain. Feels she cannot take a deep breath. She is requesting additional pain medication. Does report congested cough with minimal yellow sputum production. No documented fevers. Denies sick contacts. Denies chest pain, heart palpitations, syncopal events. Denies recent sick contacts. Vital signs are stable. 11/11/2024, the patient is being seen for a follow-up. Patient is doing well. Less bronchospastic and wheezy compared to yesterday. No significant respiratory distress. No significant sputum production. Less bronchospastic. No chest pain. No pleurisy or hemoptysis. The white cell count of 9.2 with a hemoglobin 12.8 and a platelet count of 245. Sodium is at 128, BUN is 19 with a creatinine 0.5. Remains on DuoNeb updrafts. Remains on Symbicort. Remains on IV Solu-Medrol 60 mg every 6 hours. Rest of the home medications were resumed and the patient is also on a course of Levaquin. On 11/13/2019, the patient is coughing up some yellowish sputum. Remains bronchospastic and wheezy. Continues to struggle with acute COPD exacerbation. No fever or chills. No chest pain or hemoptysis. No pleurisy. She remains on oxygen at 3 L with a pulse ox of 95%. The white cell count of 9.2 with a hemogl obin 12.8 and a platelet count of 245. Sodium level is at 128, BUN is 19 with a creatinine 0.5. Potassium level is at 5.5. Remains on DuoNeb updrafts, remains on Symbicort, remains on IV Solu-Medrol 60 mg every 6 hours. Rest of the medications are essentially unchanged. The patient is seen today November 13, 2024 in follow-up on the regular medical floor. She is currently sitting up in a chair at the bedside. Awake and alert in no acute distress. Maintaining O2 saturations in the 90s on 3 L/min per nasal cannula. Sodium 131. Potassium 5.2. Bicarb 37. BUN 23. Creatinine 0.56. Glucose 222. She remains on DuoNeb inhalations, Symbicort, Solu-Medrol. She remains on oral diuretics. Remains on Levaquin. Sputum culture pending. Procalcitonin was negative at 0.22. Objective - Vital Signs Vital signs: Vital Signs Temp 97.9 F 11/13/24 09:13 Pulse 70 11/13/24 09:13 Resp 20 11/13/24 09:13 BP 176/74 11/13/24 09:13 Pulse Ox 90 L 11/13/24 09:13 FiO2 Intake & Output 11/12/24 11/13/24 11/13/24 18:59 06:59 18:59 Output Total 1000 450 Balance -1000 -450 Output: Urine 1000 450 Other: Voiding Method External Catheter External Catheter # Voids 2 1 - Exam GENERAL EXAM: Alert, active, 69-year-old female, on 3 L nasal cannula, comfortable in no apparent distress. HEAD: Normocephalic. EYES: Normal reaction of pupils, equal size. NOSE: Clear with pink turbinates. THROAT: No erythema or exudates. NECK: No masses, no JVD. CHEST: No chest wall deformity. LUNGS: Equal air entry with end expiratory wheeze, diminished. CVS: S1 and S2 normal with no audible murmur, regular rhythm. ABDOMEN: No hepatosplenomegaly, normal bowel sounds, no guarding or rigidity. SPINE: No scoliosis or deformity SKIN: No rashes CENTRAL NERVOUS SYSTEM: No focal deficits, tone is normal in all 4 extremities. EXTREMITIES: There is no peripheral edema. No clubbing, no cyanosis. Peripheral pulses are intact. - Labs CBC & Chem 7: 11/11/24 05:26 11/13/24 10:28 Labs: Abnormal Lab Results - Last 24 Hours (Table) 11/13/24 Range/Units 10:28 Sodium 131 L (137-145) mmol/L Potassium 5.2 H (3.5-5.1) mmol/L Chloride 89 L (98-107) mmol/L Carbon Dioxide 37 H (22-30) mmol/L BUN 23 H (7-17) mg/dL Glucose 222 H (74-99) mg/dL Microbiology - Last 24 Hours (Table) 11/12/24 15:32 Gram Stain - Preliminary Sputum Assessment and Plan Assessment: Acute exacerbation of chronic obstructive pulmonary disease Acute on chronic hypoxemic respiratory failure, maintained on 3 L of oxygen by nasal cannula Chronic left hemidiaphragmatic elevation contributing to her chronic shortness of breath Chronic small right pleural effusion with associated atelectasis or scarring Acute on chronic dyspnea, secondary to a combination of above Chronic hyponatremia, appears euvolemic, previously maintained on salt tablets, sodium 131 History of mediastinal lymphadenopathy History of chronic tobacco dependence History of marijuana use Chronic lumbar back pain with severe scoliosis with severe degenerative disc disease, disc herniation of L3-S1 with cervical canal stenosis Hypothyroidism History of hypertension History of gastric bypass surgery Bipolar disorder with anxiety Fibromyalgia Plan: The patient was seen and evaluated Labs and medications reviewed Sodium improving Continue DuoNeb inhalations Continue Symbicort, Singulair Transition to oral prednisone taper Continue Levaquin Sputum culture is pending Plan is for home at discharge This patient was seen independently by the pulmonary nurse practitioner addressing pulmonary issues I have personally seen and examined the patient, performed the documentation and the assessment and plan as written. Number of minutes spent on the visit: 25 Dictation was produced using [employer] dictation software. Please excuse any grammatical, word or spelling errors.
[2024-11-13 14:28] VITALS: BP 147/70; PULSE 65; TEMP 98.3
[2024-11-13] MEDS ORDERED: LEVOFLOXACIN 750 MG TAB PO SCH (16:00)
[2024-11-14] MEDS ORDERED: predniSONE 20 MG TAB PO SCH (09:00)
--- NOTE | 2024-11-14 14:20 | CDI ---
Documentation Clarification Form Date: 11/14/2024 02:08:19 PM From: Maribel Mejía Phone: Admit Date: 11/09/2024 04:17:00 PM Patient Name: Haydee Mcpherson Visit Number: [id number] Discharge Date: 11/13/2024 02:48:00 PM ATTENTION: The Clinical Documentation Specialists (CDI) and [facility] Coding Staff appreciate your assistance in clarifying documentation. Please respond to the clarification below the line at the bottom and electronically sign. The CDI & [facility] Coding staff will review the response and follow-up if needed. Please note: Queries are made part of the Legal Health Record. If you have any questions, please contact the author of this message via ITS. Doctor/Provider: Dominguez Woods [Acute on chronic hypoxemic respiratory failure] is documented in 11/13 PN which may lack sufficient clinical evidence/support in the medical record. Additional clarification is requested. History/Risk Factors: 69-year-old female with multiple comorbid conditions includingCOPD/chronic hypoxic respiratory failureon 3 L nasal cannula,heart failure, andhistory of PEpresenting to the emergency department with complaints of difficulty in breathing.Patient states that over the past 3 days she has been feeling increasinglyshort of breaththat she is not able to take in a deep breath. Clinical Indicators: On 11/10 consult -In any rate, during this current hospitalization, the presentation is more typical of an underlyingCOPD exacerbation.The white cell countis notelevatedat 3.7.Hemoglobin is stable at 11.7 and a platelet count is also stable at 211.Sodium level was noted to be low at 129.BUN is 20 with a creatinine of 0.5.Bicarb is at 37.Procalcitonin level is 0.22. Troponins are negative and the proBNP level is 923.The patient is currently on oxygen and she is on 4 L with a pulse ox of 94% H/P on 11/10 -Chronic hypoxic respiratory failure; patient is maintained on O2 at 3 L per nasal cannula On 11/12 pn , the patient iscoughingup some yellowish sputum.Remains bronchospastic andwheezy.Continues to struggle withacute COPD exacerbation. Nofeverorchills.Nochest painorhemoptysis.Nopleurisy.She remains on oxygen at 3 L with a pulse ox of 95%.The white cell count of 9.2 with a hemoglobin 12.8 and a platelet count of 245.Sodium level is at 128, BUN is 19 with a creatinine 0.5.Potassium level is at 5.5.Remains on DuoNeb updrafts, remains on Symbicort, remains on IV Solu-Medrol 60 mg every 6 hours On 11/13 -Acute on chronic hypoxemic respiratory failure, maintained on 3 L of oxygen by nasal cannula Treatment: Continue Symbicort and DuoNeb updrafts [id number], Symbicort inhaler, and IV Solu-Medrol for another 24 to 48 hours She is requestingpainmedication for herchronic lumbar back pain, previously started on IV Toradol in the ED Please clarify if [Acute on chronic hypoxemic respiratory failure] is a valid diagnosis? [### ] No, [Acute on chronic hypoxemic respiratory failure] is ruled out [ ] Yes, [Acute on chronic hypoxemic respiratory failure] is present as evidence by (additional clinical support): [ ] Other (please specify diagnosis) [ ] Unable to determine (Template Last Revised: December 2023) MTDD
--- NOTE | 2024-11-22 21:58 | P.DS ---
Providers Date of admission: 11/09/24 16:16 Expected date of discharge: 11/13/24 Attending physician: Saeed Lai MD Consults: 11/09/24 16:43 Consult Physician Routine Consulting Provider: Ana Maria Carr Consult Reason/Comments: COPD exacerbation Do you want consulting provider notified?: Yes, Notify in am Primary care physician: Andrzej Wheeler Hospital Course: Final diagnosis 1. Acute exacerbation COPD 2. Hyponatremia; chronic 3. Chronic dyspnea; multifactorial related to chronic left hemidiaphragm elevation and chronic small right-sided pleural effusion 4. Chronic hypoxic respiratory failure; patient is maintained on O2 at 3 L per nasal cannula 5. Hypertension 6. Hypothyroidism 7. Chronic back pain; patient has severe degenerative disks disease with he rniation and cervical spinal stenosis 8. Anxiety/bipolar disorder Obesity with a BMI of 33.2 GI prophylaxis DVT prophylaxis Full code Discharge disposition Patient is being discharged in a stable condition with guarded prognosis to home. Patient will follow-up with Dr. Wheeler in the outpatient setting upon discharge. Patient is to continue with current medications and outpatient follow-up with nephrology and pulmonary as scheduled. Total time taken is greater than 35 minutes. Hospital course This is a 69-year-old female who was recently admitted with increasing shortness of breath with acute exacerbation of COPD. Patient chronically wears oxygen outpatient and reports that his breathing treatments and nebulizers although was having increasing shortness of breath. Patient being followed by pulmonary maintained on DuoNebs and IV steroids and will be transition to oral prednisone taper on discharge. Patient is also maintained on antibiotics and will transition to oral Levaquin on discharge. Sputum culture showing MRSA. Patient is afebrile and reports to feeling well and would like to go home. Patient has been cleared by pulmonary. Please refer to other consultation notes for further HPI. Currently no reports of chest pain, shortness of breath, or palpitations. Patient is afebrile. No reports of nausea or vomiting and patient is tolerating diet. Patient will be discharged home today. High risk for readmissions given significant comorbidities. Physical exam: Gen: This is a 69-year-old female who is awake, alert and oriented x 3, well- developed, elderly appearing, obese HEENT: Head is atraumatic, normocephalic. Pupils equal, round. Sclerae is anicteric. NECK: Supple. No JVD. No lymphadenopathy. No thyromegaly. LUNGS: Diminished breath sounds bilaterally with few scattered rhonchi. No intercostal retractions. HEART: S1, S2 are muffled ABDOMEN: Soft. Bowel sounds are present. No masses. No tenderness. EXTREMITIES: No pedal edema. No calf tenderness. NEUROLOGICAL: Patient is awake, alert and oriented x3. Cranial nerves 2 through 12 are grossly intact. Please refer to medication reconciliation sheet for a list of medications. The impression and plan of care has been dictated by Audrey Curtis, Nurse Practitioner as directed. Dr. Micky MD I have performed a history and examination and MDM of this patient, discussed the same with the dictator, and agree with the dictator's assessment and plan as written ,documented as a scribe. Based on total visit time, I have performed more than 50% of the visit. Patient Condition at Discharge: Stable Plan - Discharge Summary Discharge Rx Participant: No New Discharge Prescriptions: New Ipratropium-Albuterol Nebulize [Duoneb 0.5 mg-3 mg/3 ml Soln] 3 ml INHALATION RT-Q2H PRN each PRN Reason: Shortness Of Breath Or Wheezing Levofloxacin [Levaquin] 750 mg PO Q24HR@1600 5 Days #5 tab predniSONE See Taper PO DIRECTED #30 tab Continue Montelukast [Singulair] 10 mg PO HS Levothyroxine Sodium [Synthroid] 150 mcg PO DAILY Ipratropium-Albuterol Nebulize [Duoneb 0.5 mg-3 mg/3 ml Soln] 3 ml INHALATION RT-QID clonazePAM [KlonoPIN ODT] 0.25 mg PO HS lamoTRIgine [LaMICtal] 100 mg PO BID Acetaminophen Tab [Tylenol] 650 mg PO Q6HR PRN tab PRN Reason: Mild Pain Or Fever > 100.5 busPIRone HCL [Buspar] 30 mg PO BID Fluticasone/Umeclidin/Vilanter [Trelegy Ellipta 200-62.5-25] 1 puff INHALATION RT-DAILY guaiFENesin [Mucinex] 600 mg PO Q12HR 7 Days #14 tab Famotidine [Pepcid] 20 mg PO BID Tamsulosin [Flomax] 0.4 mg PO DAILY Albuterol Inhaler [Ventolin Hfa Inhaler] 2 puff INHALATION RT-QID PRN #1 each PRN Reason: Shortness Of Breath Metoprolol Tartrate [Lopressor] 25 mg PO BID Divalproex ER [Depakote ER] 250 mg PO BID #60 tab Gabapentin 300 mg PO TID Furosemide [Lasix] 20 mg PO DAILY #30 tab OLANZapine 15 mg PO HS Venlafaxine HCl [Effexor XR] 150 mg PO DAILY amLODIPine [Norvasc] 5 mg PO BID 30 Days #60 tab lisinopriL [Zestril] 10 mg PO DAILY 30 Days #30 tab Discharge Medication List Montelukast [Singulair] 10 mg PO HS 12/17/13 [History] Levothyroxine Sodium [Synthroid] 150 mcg PO DAILY 03/29/20 [History] Famotidine [Pepcid] 20 mg PO BID 09/03/21 [History] Tamsulosin [Flomax] 0.4 mg PO DAILY 10/26/21 [History] Ipratropium-Albuterol Nebulize [Duoneb 0.5 mg-3 mg/3 ml Soln] 3 ml INHALATION RT-QID 11/13/22 [History] Albuterol Inhaler [Ventolin Hfa Inhaler] 2 puff INHALATION RT-QID PRN #1 each 11/17/22 [Rx] clonazePAM [KlonoPIN ODT] 0.25 mg PO HS 12/12/23 [History] lamoTRIgine [LaMICtal] 100 mg PO BID 03/18/24 [History] Metoprolol Tartrate [Lopressor] 25 mg PO BID 05/16/24 [History] Divalproex ER [Depakote ER] 250 mg PO BID #60 tab 05/26/24 [Rx] Gabapentin 300 mg PO TID 06/01/24 [History] Acetaminophen Tab [Tylenol] 650 mg PO Q6HR PRN tab 06/02/24 [Rx] busPIRone HCL [Buspar] 30 mg PO BID 06/09/24 [History] Furosemide [Lasix] 20 mg PO DAILY #30 tab 06/22/24 [Rx] Fluticasone/Umeclidin/Vilanter [Trelegy Ellipta 200-62.5-25] 1 puff INHALATION RT-DAILY 10/17/24 [History] OLANZapine 15 mg PO HS 10/17/24 [History] Venlafaxine HCl [Effexor XR] 150 mg PO DAILY 10/17/24 [History] amLODIPine [Norvasc] 5 mg PO BID 30 Days #60 tab 10/21/24 [Rx] guaiFENesin [Mucinex] 600 mg PO Q12HR 7 Days #14 tab 10/21/24 [Rx] lisinopriL [Zestril] 10 mg PO DAILY 30 Days #30 tab 10/21/24 [Rx] Ipratropium-Albuterol Nebulize [Duoneb 0.5 mg-3 mg/3 ml Soln] 3 ml INHALATION RT-Q2H PRN each 11/13/24 [Rx] Levofloxacin [Levaquin] 750 mg PO Q24HR@1600 5 Days #5 tab 11/13/24 [Rx] predniSONE See Taper PO DIRECTED #30 tab 11/13/24 [Rx] Follow up Appointment(s)/Referral(s): Andrzej Wheeler MD [Primary Care Provider] - 11/16/24 10:30 am Mayur Roche MD [STAFF PHYSICIAN] - 11/30/24 9:00 am (appionment is scheduled with dr. high) Patient Instructions/Handouts: COPD (Chronic Obstructive Pulmonary Disease) (DC) Activity/Diet/Wound Care/Special Instructions: Activity limited until follow-up Follow-up with primary care provider on discharge Continue taking medications as prescribed Continue breathing treatments along with inhalers Resume your Trelegy inhaler Continue taking antibiotics until finished Continue prednisone taper Follow-up with pulmonary outpatient Discharge Disposition: HOME SELF-CARE
== END 2024-11-13 14:48 | disposition home or self-care (01) | DRG 191 ==
LOC: EC 14:03 → 4SSUR 16:16 → OBSVTOIN 16:17 → 4SSUR 17:33
PROVIDERS: ADMIT Internal Medicine; ATTEND Internal Medicine
DX: J44.1 Chronic obstructive pulmonary disease with (acute) exacerbation (principal); E87.1 Hypo-osmolality and hyponatremia; I50.9 Heart failure, unspecified; I11.0 Hypertensive heart disease with heart failure; F31.9 Bipolar disorder, unspecified; E03.9 Hypothyroidism, unspecified; Z68.33 Body mass index [BMI] 33.0-33.9, adult; J96.11 Chronic respiratory failure with hypoxia; J98.11 Atelectasis; J98.6 Disorders of diaphragm; F17.200 Nicotine dependence, unspecified, uncomplicated; M51.26 Other intervertebral disc displacement, lumbar region; R59.0 Localized enlarged lymph nodes; G89.29 Other chronic pain; M41.9 Scoliosis, unspecified; M51.369 Other intervertebral disc degeneration, lumbar region without mention of lumbar back pain or lower extremity pain; M50.30 Other cervical disc degeneration, unspecified cervical region; F41.0 Panic disorder [episodic paroxysmal anxiety]; M79.7 Fibromyalgia; M48.02 Spinal stenosis, cervical region; E66.9 Obesity, unspecified; Z86.711 Personal history of pulmonary embolism; Z79.890 Hormone replacement therapy; Z79.899 Other long term (current) drug therapy; Z88.5 Allergy status to narcotic agent; Z88.2 Allergy status to sulfonamides; Z88.0 Allergy status to penicillin; Z98.84 Bariatric surgery status; Z90.710 Acquired absence of both cervix and uterus; Z99.81 Dependence on supplemental oxygen
CPT/HCPCS: 36415; 71046; 80048; 80053; 83605; 83735; 83880; 84145; 84484; 85025; 85610; 85730; 87070; 87077; 87186; 87205; 87636; 93005; 94640; 94667; 94760; 96365; 96366; 96375; 99285

== ENCOUNTER 2024-11-26 10:19 | Inpatient (IN) | payer MEDICARE ==
--- NOTE | 2024-11-26 10:41 | ED ---
General Adult HPI - General Chief complaint: Chest Pain Stated complaint: ИВАН/Chest Pain Time Seen by Provider: 11/26/24 10:27 Source: patient, RN notes reviewed Mode of arrival: wheelchair Limitations: no limitations - History of Present Illness Initial comments: Patient is a 69-year-old female present to the emergency department with concerns with chest discomfort. Onset of symptoms has been about 3 days. Discomfort feels like pressure or tightness. Patient does have some associated dyspnea. Patient states it hurts to take a deep breath. Patient has had a cough that was productive however now is dry. Patient does have leg edema which is somewhat new for her. Patient believes she does have a history of CHF. Patient has gained approximately 25 pounds in the past 3 weeks. - Related Data Home Medications Medication Instructions Recorded Confirmed Montelukast [Singulair] 10 mg PO HS 12/17/13 11/09/24 Levothyroxine Sodium [Synthroid] 150 mcg PO DAILY 03/29/20 11/09/24 Famotidine [Pepcid] 20 mg PO BID 09/03/21 11/09/24 Tamsulosin [Flomax] 0.4 mg PO DAILY 10/26/21 11/09/24 Ipratropium-Albuterol Nebulize 3 ml INHALATION RT-QID 11/13/22 11/09/24 [Duoneb 0.5 mg-3 mg/3 ml Soln] clonazePAM [KlonoPIN ODT] 0.25 mg PO HS 12/12/23 11/09/24 lamoTRIgine [LaMICtal] 100 mg PO BID 03/18/24 11/09/24 Metoprolol Tartrate [Lopressor] 25 mg PO BID 05/16/24 11/09/24 Gabapentin 300 mg PO TID 06/01/24 11/09/24 busPIRone HCL [Buspar] 30 mg PO BID 06/09/24 11/09/24 Fluticasone/Umeclidin/Vilanter 1 puff INHALATION RT-DAILY 10/17/24 11/09/24 [Trelegy Ellipta 200-62.5-25] OLANZapine 15 mg PO HS 10/17/24 11/09/24 Venlafaxine HCl [Effexor XR] 150 mg PO DAILY 10/17/24 11/09/24 Previous Rx's Medication Instructions Recorded Albuterol Inhaler [Ventolin Hfa 2 puff INHALATION RT-QID PRN #1 11/17/22 Inhaler] each Divalproex ER [Depakote ER] 250 mg PO BID #60 tab 05/26/24 Acetaminophen Tab [Tylenol] 650 mg PO Q6HR PRN tab 06/02/24 Furosemide [Lasix] 20 mg PO DAILY #30 tab 06/22/24 amLODIPine [Norvasc] 5 mg PO BID 30 Days #60 tab 10/21/24 guaiFENesin [Mucinex] 600 mg PO Q12HR 7 Days #14 tab 10/21/24 lisinopriL [Zestril] 10 mg PO DAILY 30 Days #30 tab 10/21/24 Ipratropium-Albuterol Nebulize 3 ml INHALATION RT-Q2H PRN each 11/13/24 [Duoneb 0.5 mg-3 mg/3 ml Soln] Levofloxacin [Levaquin] 750 mg PO Q24HR@1600 5 Days #5 tab 11/13/24 predniSONE See Taper PO DIRECTED #30 tab 11/13/24 Allergies Allergy/AdvReac Type Severity Reaction Status Date / Time codeine Allergy Unknown Verified 11/26/24 10:23 Childhood Penicillins Allergy Rash/Hives Verified 11/26/24 10:23 Sulfa (Sulfonamide Allergy Rash/Hives Verified 11/26/24 10:23 Antibiotics) Review of Systems ROS Statement: Those systems with pertinent positive or pertinent negative responses have been documented in the HPI. ROS Other: All systems not noted in ROS Statement are negative. Constitutional: Denies: fever Eyes: Denies: eye pain ENT: Denies: ear pain Respiratory: Reports: as per HPI, cough, dyspnea Cardiovascular: Reports: chest pain, edema Gastrointestinal: Denies: abdominal pain Genitourinary: Denies: dysuria Musculoskeletal: Denies: back pain Past Medical History Past Medical History: Asthma, Heart Failure, COPD, Fibromyalgia, GERD/Reflux, Hypertension, Osteoarthritis (OA), Pneumonia, Pulmonary Embolus (PE), Skin Disorder, Thyroid Disorder Additional Past Medical History / Comment(s): Spinal Stenosis, Cervical disc disease/stenosis, scoliosis, numbness/tingling L side of face/neck, hx of L hemidiaphragmatic elevation-possibly genetic, recently bronchitis and past bronchitis, electrolyte problem/kidney function being affected, hx of pulmonary emboli, past bilateral lower extremity cellulitis, edema lower extremities, IBS, hemorrhoids, benign colon polyps, sinus problems, UTIs, bacteremia/sepsis, cardiac murmur, past L ankle and L wrist fractures. History of Any Multi-Drug Resistant Organisms: MRSA Date of last positivie culture/infection: 11/12/24 MDRO Source:: sputum, knee Past Surgical History: Bariatric Surgery, Section, Cholecystectomy, Hysterectomy, Tonsillectomy Additional Past Surgical History / Comment(s): EGD, colonoscopies, gastric bypass, surgery for deviated septum, left cataract removal (having laser procedure on that eye 11/24/23) Past Anesthesia/Blood Transfusion Reactions: Previous Problems w/ Anesthesia Additional Past Anesthesia/Blood Transfusion Reaction / Comment(s): itching after hysterectomy, some kind of breathing problem after gastric bypass-not sure what happened Past Psychological History: Anxiety, Bipolar, Depression, Panic Disorder Smoking Status: Current every day smoker Past Alcohol Use History: None Reported Past Drug Use History: None Reported - Past Family History Mother Family Medical History: Congestive Heart Failure (CHF), Hypertension Father History Unknown: Yes Additional Family Medical History / Comment(s): Father at the age of 45 yrs d/t having had rheumatic fever as a child and heart valve disease. General Exam Limitations: no limitations General appearance: alert, in no apparent distress Head exam: Present: normocephalic Eye exam: Present: normal appearance Neck exam: Present: normal inspection Respiratory exam: Present: wheezes, rhonchi Cardiovascular Exam: Present: regular rate, normal rhythm Expanded Peripheral pulses: 2+: Radial (R), Radial (L), Posterior Tibialis (R), Posterior Tibialis (L) GI/Abdominal exam: Present: soft. Absent: tenderness Extremities exam: Present: pedal edema. Absent: calf tenderness Neurological exam: Present: alert Psychiatric exam: Present: normal affect, normal mood Skin exam: Present: normal color Course Vital Signs 11/26/24 11/26/24 11/26/24 10:20 10:30 11:20 Temperature 98.1 F Pulse Rate 67 63 Respiratory 16 20 18 Rate Blood Pressure 142/79 137/68 O2 Sat by Pulse 91 L 95 Oximetry 11/26/24 11/26/24 11:28 11:40 Temperature Pulse Rate 63 61 Respiratory Rate Blood Pressure O2 Sat by Pulse Oximetry EKG Findings - EKG Results: EKG: interpreted by ERMD, sinus rhythm (PVCs present), normal axis, normal QRS, normal ST/T Medical Decision Making - Medical Decision Making Was pt. sent in by a medical professional or institution (, PA, NEMATOLOGIST, urgent care, hospital, or alf...) When possible be specific @ -No Did you speak to anyone other than the patient for history (EMS, parent, family, police, friend...)? What history was obtained from this source @ -No Did you review nursing and triage notes (agree or disagree)? Why? @ -I reviewed and agree with nursing and triage notes Were old charts reviewed (outside hosp., previous admission, EMS record, old EKG, old radiological studies, urgent care reports/EKG's, alf records)? Report findings @ -Multiple previous admitted chest x-ray including CT scans reviewed. Patient does have chronic changes right lower lobe Differential Diagnosis (chest pain, altered mental status, abdominal pain women, abdominal pain men, vaginal bleeding, weakness, fever, dyspnea, syncope, headache, dizziness, GI bleed, back pain, seizure, CVA, palpatations, mental health, musculoskeletal)? @ -Differential Dyspnea: Coronary syndrome, arrhythmia, tamponade, asthma, COPD, pulmonary embolism, pneumonia, pneumothorax, pulmonary effusion, anaphylaxis, diabetic ketoacidosis, flailed chest, pulmonary contusion, diaphragmatic rupture, anemia, neuromuscular, this is not meant to be an all-inclusive list. Differential Chest Pain: Stable Angina, Unstable Angina, STEMI, NSTEMI Aortic Dissection, Pneumothorax, Musculoskeletal, Esophageal Spasm GERD, Cholecystitis, Pancreatitis, Zoster, this is not meant to be an all-inclusive list. EKG interpreted by me (3pts min.). @ -As above X-rays interpreted by me (1pt min.). @ -Chest x-ray shows some right lower lobe changes. Concerns for CHF CT interpreted by me (1pt min.). @ -None done U/S interpreted by me (1pt. min.). @ -None done What testing was considered but not performed or refused? (CT, X-rays, U/S, labs)? Why? @ -None What meds were considered but not given or refused? Why? @ -None Did you discuss the management of the patient with other professionals (professionals i.e. , PA, NEMATOLOGIST, lab, RT, psych nurse, aids social worker, civilian technician, teacher, chief business officer, medical case worker)? Give summary @ -Case was discussed with Dr. Woods who will admit covering Dr. Wheeler Was smoking cessation discussed for >3mins.? @ -No Was critical care preformed (if so, how long)? @ -No Were there social determinants of health that impacted care today? How? (Homelessness, low income, unemployed, alcoholism, drug addiction, transportation, low edu. Level, literacy, decrease access to med. care, detention, rehab)? @ -No Was there de-escalation of care discussed even if they declined (Discuss DNR or withdrawal of care, Hospice)? DNR status @ -No What co-morbidities impacted this encounter? (DM, HTN, Smoking, COPD, CAD, Cancer, CVA, ARF, Chemo, Hep., AIDS, mental health diagnosis, sleep apnea, morbid obesity)? @ -History of COPD Was patient admitted / discharged? Hospital course, mention meds given and route, prescriptions, significant lab abnormalities, going to OR and other pertinent info. @ -Patient presents with chest discomfort and some dyspnea. Lung sounds with wheezing and rhonchi. Some improvement with nebulizer. Chest x-ray shows some CHF and right lower lobe changes, partially chronic. Patient will be admitted with consults for pulmonary and cardiology. Patient was reevaluated and did get updated. Admission orders written. Undiagnosed new problem with uncertain prognosis? @ -No Drug Therapy requiring intensive monitoring for toxicity (Heparin, Nitro, Insulin, Cardizem)? @ -No Were any procedures done? @ -No Diagnosis/symptom? @ -Chest pain, CHF, COPD Acute, or Chronic, or Acute on Chronic? @ -Acute, acute on chronic, acute on chronic Uncomplicated (without systemic symptoms) or Complicated (systemic symptoms)? @ -Default Side effects of treatment? @ -No Exacerbation, Progression, or Severe Exacerbation? @ -No Poses a threat to life or bodily function? How? (Chest pain, USA, MD, pneumonia, PE, COPD, DKA, ARF, appy, cholecystitis, CVA, Diverticulitis, Homicidal, Suicidal, threat to staff... and all critical care pts) @ -Threat to cardiac and pulmonary functions - Lab Data Result diagrams: 11/26/24 10:36 11/26/24 10:36 Lab Results 11/26/24 11/26/24 11/26/24 Range/Units 10:36 10:36 10:36 WBC 14.13 H (4.50-10.00) 10*3/uL RBC 3.97 L (4.10-5.20) 10*6/uL Hgb 12.0 (12.0-15.0) g/dL Hct 36.9 L (37.2-46.3) % MCV 92.9 (80.0-97.0) fL MCH 30.2 (27.0-32.0) pg MCHC 32.5 (32.0-37.0) g/dL Plt Count 271 (140-440) 10*3/uL MPV 9.0 L (9.5-12.2) fL Immature Gran % (Auto) 2.9 % Neutrophils % 70.3 % Lymphocytes % 16.3 % Monocytes % 8.8 % Eosinophils % 1.1 % Basophils % 0.6 % Immature Gran # 0.41 H (0.00-0.04) 10*3/uL Neutrophils # 9.92 H (1.80-7.70) 10*3/uL Lymphocytes # 2.31 (0.90-5.00) 10*3/uL Monocytes # 1.24 H (0.20-1.00) 10*3/uL Eosinophils # 0.16 (0.04-0.35) 10*3/uL Basophils # 0.09 (0.00-0.10) 10*3/uL PT 9.9 L (10.0-12.5) sec INR 0.9 (<1.2) APTT 23.9 (22.0-30.0) sec D-Dimer 0.67 H (<0.60) mg/L FEU Sodium 128 L (137-145) mmol/L Potassium 4.5 (3.5-5.1) mmol/L Chloride 85 L (98-107) mmol/L Carbon Dioxide 43 H* (22-30) mmol/L Anion Gap 0 mmol/L BUN 14 (7-17) mg/dL Creatinine 0.54 (0.52-1.04) mg/dL Est GFR (CKD-EPI)AfAm >90 (>60 ml/min/1.73 sqM) Est GFR (CKD-EPI)NonAf >90 (>60 ml/min/1.73 sqM) Glucose 88 (74-99) mg/dL Calcium 9.5 (8.4-10.2) mg/dL Magnesium 1.5 L (1.6-2.3) mg/dL Total Bilirubin 0.4 (0.2-1.3) mg/dL AST 27 (14-36) U/L ALT 28 (4-34) U/L Alkaline Phosphatase 59 (38-126) U/L Troponin I (0.000-0.034) ng/mL NT-Pro-B Natriuret Pep 1290 pg/mL Total Protein 5.7 L (6.3-8.2) g/dL Albumin 3.3 L (3.5-5.0) g/dL Influenza Type A (PCR) (Not Detectd) Influenza Type B (PCR) (Not Detectd) RSV (PCR) (Not Detectd) SARS-CoV-2 (PCR) (Not Detectd) 11/26/24 11/26/24 Range/Units 10:36 10:37 WBC (4.50-10.00) 10*3/uL RBC (4.10-5.20) 10*6/uL Hgb (12.0-15.0) g/dL Hct (37.2-46.3) % MCV (80.0-97.0) fL MCH (27.0-32.0) pg MCHC (32.0-37.0) g/dL Plt Count (140-440) 10*3/uL MPV (9.5-12.2) fL Immature Gran % (Auto) % Neutrophils % % Lymphocytes % % Monocytes % % Eosinophils % % Basophils % % Immature Gran # (0.00-0.04) 10*3/uL Neutrophils # (1.80-7.70) 10*3/uL Lymphocytes # (0.90-5.00) 10*3/uL Monocytes # (0.20-1.00) 10*3/uL Eosinophils # (0.04-0.35) 10*3/uL Basophils # (0.00-0.10) 10*3/uL PT (10.0-12.5) sec INR (<1.2) APTT (22.0-30.0) sec D-Dimer (<0.60) mg/L FEU Sodium (137-145) mmol/L Potassium (3.5-5.1) mmol/L Chloride (98-107) mmol/L Carbon Dioxide (22-30) mmol/L Anion Gap mmol/L BUN (7-17) mg/dL Creatinine (0.52-1.04) mg/dL Est GFR (CKD-EPI)AfAm (>60 ml/min/1.73 sqM) Est GFR (CKD-EPI)NonAf (>60 ml/min/1.73 sqM) Glucose (74-99) mg/dL Calcium (8.4-10.2) mg/dL Magnesium (1.6-2.3) mg/dL Total Bilirubin (0.2-1.3) mg/dL AST (14-36) U/L ALT (4-34) U/L Alkaline Phosphatase (38-126) U/L Troponin I <0.012 (0.000-0.034) ng/mL NT-Pro-B Natriuret Pep pg/mL Total Protein (6.3-8.2) g/dL Albumin (3.5-5.0) g/dL Influenza Type A (PCR) Not Detected (Not Detectd) Influenza Type B (PCR) Not Detected (Not Detectd) RSV (PCR) Not Detected (Not Detectd) SARS-CoV-2 (PCR) Not Detected (Not Detectd) Disposition Clinical Impression: Chest pain, Acute exacerbation of chronic obstructive pulmonary disease, Congestive heart failure Disposition: ADMITTED IP TO THIS HOSP Is patient prescribed a controlled substance at d/c from ED?: No Referrals: Andrzej Wheeler MD [Primary Care Provider] - 1-2 days Time of Disposition: 13:40
[2024-11-26] MEDS: NITROGLYCERIN OINT 1 INCH/GM PACKET TOPICAL STA (11:17)
[2024-11-26] MEDS: ASPIRIN 81 MG PO STA (11:17)
[2024-11-26 11:22] LABS: Basophils # (A) 0.09 10*3/uL (0.00-0.10); Basophils % (A) 0.6 %; Eosinophils # (A) 0.16 10*3/uL (0.04-0.35); Eosinophils % (A) 1.1 %; HCT 36.9 % (37.2-46.3); Lymphocytes # (A) 2.31 10*3/uL (0.90-5.00); Lymphocytes % (A) 16.3 %; MCH 30.2 pg (27.0-32.0); MCHC 32.5 g/dL (32.0-37.0); MCV 92.9 fL (80.0-97.0); Monocytes # (A) 1.24 10*3/uL (0.20-1.00); Monocytes % (A) 8.8 %; Neutrophils # (A) 9.92 10*3/uL (1.80-7.70); Neutrophils % (A) 70.3 %; Platelet Count 271 10*3/uL (140-440); RBC 3.97 10*6/uL (4.10-5.20); RDW 12.7 % (11.5-14.5); WBC 14.13 10*3/uL (4.50-10.00)
[2024-11-26] MEDS: IPRATROPIUM-ALBUTEROL 3 ML NEB INHALATION STA (11:28)
[2024-11-26 11:41] LABS: ALT 28 U/L (4-34); AST 27 U/L (14-36); African American GFR (CKD) >90 (>60 ml/min/1.73 sqM); Albumin 3.3 g/dL (3.5-5.0); Alkaline Phosphatase 59 U/L (38-126); Blood Urea Nitrogen 14 mg/dL (7-17); Calcium 9.5 mg/dL (8.4-10.2); Chloride 85 mmol/L (98-107); Glucose 88 mg/dL (74-99); Magnesium 1.5 mg/dL (1.6-2.3); Non-African American GFR(CKD) >90 (>60 ml/min/1.73 sqM); Potassium 4.5 mmol/L (3.5-5.1); Sodium 128 mmol/L (137-145); Total Bilirubin 0.4 mg/dL (0.2-1.3); Total Protein 5.7 g/dL (6.3-8.2)
[2024-11-26 11:47] LABS: Anion Gap 0 mmol/L; INR 0.9 (<1.2); NT-Pro-B-Type Natriuretic Pept 1290 pg/mL; Partial Thromboplastin Time 23.9 sec (22.0-30.0); Prothrombin Time 9.9 sec (10.0-12.5)
--- NOTE | 2024-11-26 11:48 | XR ---
EXAMINATION TYPE: XR chest 2V DATE OF EXAM: 11/26/2024 11:28 AM COMPARISON: Chest radiographs from 11/09/2024 CLINICAL INDICATION: Female, 69 years old with history of Chest Pain; [facility] TECHNIQUE: XR chest 2V Frontal and lateral views of the chest. FINDINGS: Lungs/Pleura: Similar right midlung streaky atelectasis. There is no evidence of pleural effusion, fo nasreen consolidation, or pneumothorax. Pulmonary vascularity: Pulmonary vascular congestion. Heart/mediastinum: Cardiomediastinal silhouette is enlarged. Musculoskeletal: No acute osseous pathology. Other findings: None Lines/Tubes: IMPRESSION: Cardiomegaly and mild pulmonary vascular congestion. Correlate with BNP for congestive heart failure. [facility], , 11/26/2024 11:45 AM
[2024-11-26 11:55] LABS: Influenza A Not Detected (Not Detectd); Influenza B Not Detected (Not Detectd); RSV Not Detected (Not Detectd)
[2024-11-26 12:50] LABS: Carbon Dioxide 43 mmol/L (22-30)
[2024-11-26] MEDS ORDERED: NITROGLYCERIN SL TABS 0.4 MG TAB SUBLINGUAL PRN (13:42)
[2024-11-26] MEDS ORDERED: NALOXONE 0.4 MG/ML 1 ML VIAL IVP PRN (13:45)
[2024-11-26] MEDS ORDERED: IPRATROPIUM-ALBUTEROL 3 ML NEB INHALATION PRN ×2 (13:45→17:29)
[2024-11-26] MEDS: LORazepam 1 MG/0.5 ML VIAL IV STA (13:58)
[2024-11-26] MEDS: methylPREDNISolone SOD SUCCI 125 MG/2 ML VIAL IV STA (14:01)
[2024-11-26] MEDS: AZITHROMYCIN 500 MG TAB PO SCH (14:02)
[2024-11-26] MEDS: IPRATROPIUM-ALBUTEROL 3 ML NEB INHALATION SCH (15:10)
[2024-11-26] MEDS ORDERED: ALBUTEROL HFA INHALER INHALATION PRN (17:29)
[2024-11-26] MEDS: NITROGLYCERIN OINT 1 INCH/GM PACKET TOPICAL SCH (18:00)
[2024-11-26] MEDS: lamoTRIgine 100 MG TAB PO SCH (20:46)
[2024-11-26] MEDS: guaiFENesin 600 MG TABLET.ER PO SCH (20:46)
[2024-11-26] MEDS: MONTELUKAST 10 MG TAB PO SCH (20:46)
[2024-11-26] MEDS: amLODIPine 5 MG TAB PO SCH (20:46)
[2024-11-26] MEDS: FAMOTIDINE 20 MG TAB PO SCH (20:46)
[2024-11-26] MEDS: METOPROLOL TARTRATE 25 MG TAB PO SCH (20:46)
[2024-11-26] MEDS: DIVALPROEX ER 250 MG TAB.ER.24H PO SCH (21:38)
[2024-11-26] MEDS: OLANZapine 5 MG TAB PO SCH (21:38)
[2024-11-26] MEDS: clonazePAM 0.5 MG TAB PO SCH (21:38)
[2024-11-26] MEDS: busPIRone HCl 10 MG TAB PO SCH (21:38)
[2024-11-26] MEDS: methylPREDNISolone SOD SUCCI 125 MG/2 ML VIAL IV SCH ×2 (21:38→23:25)
[2024-11-26] MEDS: ACETAMINOPHEN TAB 325 MG TAB PO PRN (21:52)
[2024-11-26] MEDS: GABAPENTIN 300 MG CAP PO SCH (22:51)
--- NOTE | 2024-11-26 22:59 | P.HPIM ---
History of Present Illness H&P Date: 11/26/24 Chief Complaint: Chest pain/shortness of breath 69-year-old female, hypertension, hyperlipidemia, hypothyroidism, 1520 seizure disorder, asthma/COPD, present to the emergency department with concerns with chest discomfort. Onset of symptoms has been about 3 days. Discomfort feels like pressure or tightness. Patient does have some associated dyspnea. Patient states it hurts to take a deep breath. Patient has had a cough that was productive however now is dry. Patient does have leg edema which is somewhat new for her. Patient believes she does have a history of CHF. Patient has gained approximately 25 pounds in the past 3 weeks. Blood work completed in ED reveals WBC of 14.13, hemoglobin 12, platelet of 271, sodium 128, potassium of 4.5, BUN/creatinine of 14/0.54 and blood glucose of 88; BNP is elevated at 1290 Chest x-ray reveals mild pulmonary vascular congestion EKG does not reveal any acute ST or T wave changes Review of Systems REVIEW OF SYSTEMS: CONSTITUTIONAL: No fever, no malaise, no fatigue. HEENT: No recent visual problems or hearing problems. Denied any sore throat. CARDIOVASCULAR: No chest pain, orthopnea, PND, no palpitations, no syncope. PULMONARY: No shortness of breath, no cough, no hemoptysis. GASTROINTESTINAL: No diarrhea, no nausea, no vomiting, no abdominal pain. NEUROLOGICAL: No headaches, no weakness, no numbness. HEMATOLOGICAL: Denies any bleeding or petechiae. GENITOURINARY: Denies any burning micturition, frequency, or urgency. MUSCULOSKELETAL/RHEUMATOLOGICAL: Denies any joint pain, swelling, or any muscle pain. ENDOCRINE: Denies any polyuria or polydipsia. The rest of the 14-point review of systems is negative. 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 History of Any Multi-Drug Resistant Organisms: None Reported, MRSA Date of last positivie culture/infection: 11/12/24 MDRO Source:: sputum, knee Past Surgical History: Bariatric Surgery, Section, Cholecystectomy, Hysterectomy, Tonsillectomy Additional Past Surgical History / Comment(s): EGD, colonoscopies, gastric bypass, surgery for deviated septum, left cataract removal (having laser procedure on that eye 11/24/23) Past Anesthesia/Blood Transfusion Reactions: Previous Problems w/ Anesthesia Additional Past Anesthesia/Blood Transfusion Reaction / Comment(s): itching after hysterectomy, some kind of breathing problem after gastric bypass-not sure what happened Past Psychological History: Anxiety, Bipolar, Depression, Panic Disorder Additional Psychological History / Comment(s): . Smoking Status: Current every day smoker Past Alcohol Use History: None Reported Additional Past Alcohol Use History / Comment(s): Pt started smoking in 1986 and quit when she went into [facility] 08/2021, started again and smokes about half a pack a day. Past Drug Use History: None Reported Additional Drug Use History / Comment(s): occassional cannabis use per pt - Past Family History Mother Family Medical History: Congestive Heart Failure (CHF), Hypertension Father History Unknown: Yes Additional Family Medical History / Comment(s): Father at the age of 45 yrs d/t having had rheumatic fever as a child and heart valve disease. Medications and Allergies Home Medications Medication Instructions Recorded Confirmed Type Montelukast [Singulair] 10 mg PO HS 12/17/13 11/26/24 History Levothyroxine Sodium [Synthroid] 150 mcg PO DAILY 03/29/20 11/26/24 History Famotidine [Pepcid] 20 mg PO BID 09/03/21 11/26/24 History Tamsulosin [Flomax] 0.4 mg PO DAILY 10/26/21 11/26/24 History Ipratropium-Albuterol Nebulize 3 ml INHALATION RT-QID 11/13/22 11/26/24 History [Duoneb 0.5 mg-3 mg/3 ml Soln] Albuterol Inhaler [Ventolin Hfa 2 puff INHALATION RT-QID PRN #1 11/17/22 11/26/24 Rx Inhaler] each clonazePAM [KlonoPIN ODT] 0.25 mg PO HS 12/12/23 11/26/24 History lamoTRIgine [LaMICtal] 100 mg PO BID 03/18/24 11/26/24 History Metoprolol Tartrate [Lopressor] 25 mg PO BID 05/16/24 11/26/24 History Divalproex ER [Depakote ER] 250 mg PO BID #60 tab 05/26/24 11/26/24 Rx Gabapentin 300 mg PO TID 06/01/24 11/26/24 History Acetaminophen Tab [Tylenol] 650 mg PO Q6HR PRN tab 06/02/24 11/26/24 Rx busPIRone HCL [Buspar] 30 mg PO BID 06/09/24 11/26/24 History Furosemide [Lasix] 20 mg PO DAILY #30 tab 06/22/24 11/26/24 Rx Fluticasone/Umeclidin/Vilanter 1 puff INHALATION RT-DAILY 10/17/24 11/26/24 History [Trelegy Ellipta 200-62.5-25] OLANZapine 15 mg PO HS 10/17/24 11/26/24 History Venlafaxine HCl [Effexor XR] 150 mg PO DAILY 10/17/24 11/26/24 History amLODIPine [Norvasc] 5 mg PO BID 30 Days #60 tab 10/21/24 11/26/24 Rx guaiFENesin [Mucinex] 600 mg PO Q12HR 7 Days #14 tab 10/21/24 11/26/24 Rx lisinopriL [Zestril] 10 mg PO DAILY 30 Days #30 tab 10/21/24 11/26/24 Rx Ipratropium-Albuterol Nebulize 3 ml INHALATION RT-Q2H PRN each 11/13/24 11/26/24 Rx [Duoneb 0.5 mg-3 mg/3 ml Soln] Allergies Allergy/AdvReac Type Severity Reaction Status Date / Time codeine Allergy Unknown Verified 11/26/24 13:49 Childhood Penicillins Allergy Rash/Hives Verified 11/26/24 13:49 Sulfa (Sulfonamide Allergy Rash/Hives Verified 11/26/24 13:49 Antibiotics) Physical Exam Vitals: Vital Signs Temp Pulse Pulse Resp BP BP Pulse Ox 11/26/24 16:04 98.8 F 67 16 172/49 93 L 11/26/24 15:22 67 11/26/24 15:10 64 11/26/24 14:50 97.8 F 63 19 161/84 97 11/26/24 11:40 61 11/26/24 11:28 63 11/26/24 11:20 63 18 137/68 95 11/26/24 10:30 20 11/26/24 10:20 98.1 F 67 16 142/79 91 L Intake and Output 11/26/24 11/26/24 11/26/24 06:59 14:59 22:59 Other: Voiding Method Bedside Commode # Voids 1 Weight 77.111 kg 77.111 kg General appearance: alert, in no apparent distress Head exam: Present: normocephalic Eye exam: Present: normal appearance Neck exam: Present: normal inspection Respiratory exam: Present: wheezes, rhonchi Cardiovascular Exam: Present: regular rate, normal rhythm Expanded Peripheral pulses: 2+: Radial (R), Radial (L), Posterior Tibialis (R), Posterior Tibialis (L) GI/Abdominal exam: Present: soft. Absent: tenderness Extremities exam: Present: pedal edema. Absent: calf tenderness Neurological exam: Present: alert Psychiatric exam: Present: normal affect, normal mood Skin exam: Present: normal color Results CBC & Chem 7: 11/26/24 10:36 11/26/24 10:36 Labs: Abnormal Lab Results - Last 24 Hours (Table) 11/26/24 11/26/24 11/26/24 Range/Units 10:36 10:36 10:36 WBC 14.13 H (4.50-10.00) 10*3/uL RBC 3.97 L (4.10-5.20) 10*6/uL Hct 36.9 L (37.2-46.3) % MPV 9.0 L (9.5-12.2) fL Immature Gran # 0.41 H (0.00-0.04) 10*3/uL Neutrophils # 9.92 H (1.80-7.70) 10*3/uL Monocytes # 1.24 H (0.20-1.00) 10*3/uL PT 9.9 L (10.0-12.5) sec D-Dimer 0.67 H (<0.60) mg/L FEU Sodium 128 L (137-145) mmol/L Chloride 85 L (98-107) mmol/L Carbon Dioxide 43 H* (22-30) mmol/L Magnesium 1.5 L (1.6-2.3) mg/dL Total Protein 5.7 L (6.3-8.2) g/dL Albumin 3.3 L (3.5-5.0) g/dL Assessment and Plan Assessment: 1. Acute exacerbation COPD --Patient has been placed on IV Solu-Medrol 60 mg every 6 hours; bronchodilator nebulizer treatments 4 times daily and as needed -- We will add doxycycline 100 mg twice daily - Consult pulmonary for further evaluation 2. Chest pain rule out acute coronary syndrome -- Initial troponin is negative; EKG does not reveal any acute ST or T wave changes - We will admit to telemetry, monitor EKG and trend troponin -- Recommend 2D echo Consult cardiology 3. New onset CHF; BNP is elevated at 1290; chest x-ray reveals mild pulmonary vascular congestion - Will order 2D echo; Lasix 40 mg IV x 1; we will monitor strict TESSY's, daily weights, low-salt and fluid restricted diet - Consult cardiology 3. Hypertension; amlodipine 5 mg p.o. daily metoprolol 25 mg twice daily 4. Hyperlipidemia; continue home PPI therapy 5. Hypothyroidism; thyroxine 150 mcg daily 6. Anxiety/depression/bipolar; Effexor 150 mg daily, olanzapine 15 mg p.o. nightly Lamictal 100 mg twice daily, BuSpar 30 mg twice daily, Klonopin 0.5 mg p.o. nightly DVT prophylaxis; SCDs CODE STATUS; full code
[2024-11-27] MEDS: FUROSEMIDE 10 MG/ML 4 ML VIAL IV STA
--- NOTE | 2024-11-27 00:46 | P.CNPUL ---
History of Present Illness Consult date: 11/27/24 Requesting physician: Gino Ramírez Reason for consult: COPD Chief complaint: Shortness of breath History of present illness: Patient is a 69-year-old female with past medical history significant for COPD, chronic hypoxemic respiratory failure on 3 L/min nasal cannula, chronic ongoing tobacco dependence, heart failure, pulmonary embolism, hypothyroidism, fibromyalgia, chronic lower back pain, anxiety. Of note, patient recently hospitalized November 09 through November 13 with an acute COPD exacerbation. Sputum culture was positive for MRSA and Corynebacterium stratum during this hospitalization. She was discharged with a combination of DuoNebs, p.o. Levaquin, and prednisone taper. She is also currently using a Symbicort inhailer, which is going to be transitioned to Trelegy inhaler. Her FEV1 is noted of 64% of predicted at baseline. Chronically oxygen dependent on 3 L/min nasal cannula 08/02. Patient returns to the emergency department yesterday evening with a chief complaint of increased work of breathing, progressive for the last 3 days. She has had associated congested nonproductive cough and wheezing. Also, complaining of chronic pain involving posterior neck, bilateral arms, and diffuse chest. Rated 10 out of 10, described as throbbing. States this is chronic in nature. Workup in the emergency department including a chest x-ray showing a large cardiac silhouette, possible pulmonary vascular congestion. A chronic right lower lobe opacity and possible pleural effusion with right midlung atelectasis, unchanged. Chronic left hemidiaphragm elevation. No new focal consolidations. Labs remarkable for a CBC with an elevated WBC count of 14, hemoglobin 12, platelets 271. CMP with a chronically low sodium of 128, potassium 4.5, chloride 85, serum bicarb 43, BUN 14, creatinine 0.54, glucose 88. Troponin is less than 0.012 x 3. NT proBNP 1290. Viral 4 Plex negative for influenza A/B, RSV, COVID. Patient currently being evaluated in the general medical floor. She was sleeping when I entered the room. Awakes easily to verbal stimuli, no signs of CO2 narcosis. Breathing is nonlabored. Reports increased acute on chronic shortness of breath over the la st 3 days. Associated chest congestion and wheezing. Denies any sputum production, hemoptysis. Denies any sick contacts. Denies any fevers or chills. Denies any nausea, vomiting, diarrhea. Appetite has been good. Continues to smoke cigarettes, approximately 10 cigarettes/day. Current vital signs: Temperature 97.7 F, heart rate 66 bpm, blood pressure 118/70 mmHg, nontachypneic, SpO2 recorded at 94% on her 3 L/min nasal cannula. Review of Systems CONSTITUTIONAL: Denies any recent significant weight loss or weight gain. EYES: Denies change in vision. EARS, NOSE, MOUTH, THROAT: Denies headaches, denies sore throat. CARDIOVASCULAR: Denies any localized chest pain, palpitations or syncopal episodes. RESPIRATORY: See HPI GASTROINTESTINAL: Denies change in appetite, denies abdominal pain GENITOURINARY: Denies hematuria, denies infections. MUSKULOSKELETAL: Endorses chronic lumbar back pain. Denies any lower extremity weakness, saddle anesthesia or bowel or bladder control. INTEGUMENTARY: Denies rash, denies eczema. NEUROLOGICAL: Denies recent memory loss, no recent seizure activity. PSYCHIATRIC: Positive for anxiety. HEMATOLOGIC/LYMPHATIC: Denies anemia, denies enlarged lymph nodes. 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 History of Any Multi-Drug Resistant Organisms: None Reported, MRSA Date of last positivie culture/infection: 11/12/24 MDRO Source:: sputum, knee Past Surgical History: Bariatric Surgery, Section, Cholecystectomy, Hysterectomy, Tonsillectomy Additional Past Surgical History / Comment(s): EGD, colonoscopies, gastric bypass, surgery for deviated septum, left cataract removal (having laser procedure on that eye 11/24/23) Past Anesthesia/Blood Transfusion Reactions: Previous Problems w/ Anesthesia Additional Past Anesthesia/Blood Transfusion Reaction / Comment(s): itching after hysterectomy, some kind of breathing problem after gastric bypass-not sure what happened Past Psychological History: Anxiety, Bipolar, Depression, Panic Disorder Additional Psychological History / Comment(s): . Smoking Status: Current every day smoker Past Alcohol Use History: None Reported Additional Past Alcohol Use History / Comment(s): Pt started smoking in 1986 and quit when she went into [facility] 08/2021, started again and smokes about half a pack a day. Past Drug Use History: None Reported Additional Drug Use History / Comment(s): occassional cannabis use per pt - Past Family History Mother Family Medical History: Congestive Heart Failure (CHF), Hypertension Father History Unknown: Yes Additional Family Medical History / Comment(s): Father at the age of 45 yrs d/t having had rheumatic fever as a child and heart valve disease. Medications and Allergies Home Medications Medication Instructions Recorded Confirmed Type Montelukast [Singulair] 10 mg PO HS 12/17/13 11/26/24 History Levothyroxine Sodium [Synthroid] 150 mcg PO DAILY 03/29/20 11/26/24 History Famotidine [Pepcid] 20 mg PO BID 09/03/21 11/26/24 History Tamsulosin [Flomax] 0.4 mg PO DAILY 10/26/21 11/26/24 History Ipratropium-Albuterol Nebulize 3 ml INHALATION RT-QID 11/13/22 11/26/24 History [Duoneb 0.5 mg-3 mg/3 ml Soln] Albuterol Inhaler [Ventolin Hfa 2 puff INHALATION RT-QID PRN #1 11/17/22 11/26/24 Rx Inhaler] each clonazePAM [KlonoPIN ODT] 0.25 mg PO HS 12/12/23 11/26/24 History lamoTRIgine [LaMICtal] 100 mg PO BID 03/18/24 11/26/24 History Metoprolol Tartrate [Lopressor] 25 mg PO BID 05/16/24 11/26/24 History Divalproex ER [Depakote ER] 250 mg PO BID #60 tab 05/26/24 11/26/24 Rx Gabapentin 300 mg PO TID 06/01/24 11/26/24 History Acetaminophen Tab [Tylenol] 650 mg PO Q6HR PRN tab 06/02/24 11/26/24 Rx busPIRone HCL [Buspar] 30 mg PO BID 06/09/24 11/26/24 History Furosemide [Lasix] 20 mg PO DAILY #30 tab 06/22/24 11/26/24 Rx Fluticasone/Umeclidin/Vilanter 1 puff INHALATION RT-DAILY 10/17/24 11/26/24 History [Trelegy Ellipta 200-62.5-25] OLANZapine 15 mg PO HS 10/17/24 11/26/24 History Venlafaxine HCl [Effexor XR] 150 mg PO DAILY 10/17/24 11/26/24 History amLODIPine [Norvasc] 5 mg PO BID 30 Days #60 tab 10/21/24 11/26/24 Rx guaiFENesin [Mucinex] 600 mg PO Q12HR 7 Days #14 tab 10/21/24 11/26/24 Rx lisinopriL [Zestril] 10 mg PO DAILY 30 Days #30 tab 10/21/24 11/26/24 Rx Ipratropium-Albuterol Nebulize 3 ml INHALATION RT-Q2H PRN each 11/13/24 11/26/24 Rx [Duoneb 0.5 mg-3 mg/3 ml Soln] Allergies Allergy/AdvReac Type Severity Reaction Status Date / Time codeine Allergy Unknown Verified 11/26/24 13:49 Childhood Penicillins Allergy Rash/Hives Verified 11/26/24 13:49 Sulfa (Sulfonamide Allergy Rash/Hives Verified 11/26/24 13:49 Antibiotics) Physical Exam Vitals: Vital Signs Temp Pulse Pulse Resp BP BP Pulse Ox 11/26/24 23:57 97.7 F 66 17 118/70 94 L 11/26/24 21:37 132/65 11/26/24 20:43 75 135/75 93 L 11/26/24 19:36 70 11/26/24 19:28 67 11/26/24 18:51 97.8 F 72 19 103/59 91 L 11/26/24 16:04 98.8 F 67 16 172/49 93 L 11/26/24 15:22 67 11/26/24 15:10 64 11/26/24 14:50 97.8 F 63 19 161/84 97 11/26/24 11:40 61 11/26/24 11:28 63 11/26/24 11:20 63 18 137/68 95 11/26/24 10:30 20 11/26/24 10:20 98.1 F 67 16 142/79 91 L Intake and Output 11/26/24 11/26/24 11/27/24 14:59 22:59 06:59 Other: Voiding Method Bedside Commode # Voids 1 Weight 77.111 kg 77.111 kg GENERAL EXAM: Anxious and tearful, 69-year-old female, on 3 L nasal cannula, not in any respiratory distress. HEAD: Normocephalic. EYES: Normal reaction of pupils, equal size. NOSE: Clear with pink turbinates. THROAT: No erythema or exudates. NECK: No masses, no JVD. CHEST: No chest wall deformity. LUNGS: Equal air entry with scattered rhonchi bilaterally. CVS: S1 and S2 normal with no audible murmur, regular rhythm. ABDOMEN: No hepatosplenomegaly, normal bowel sounds, no guarding or rigidity. SPINE: No scoliosis or deformity SKIN: No rashes CENTRAL NERVOUS SYSTEM: No focal deficits, tone is normal in all 4 extremities. EXTREMITIES: There is no peripheral edema. No clubbing, no cyanosis. Peripheral pulses are intact. Results - Laboratory Findings CBC and BMP: 11/27/24 05:45 11/27/24 05:45 PT/INR, D-dimer PT 9.9 sec (10.0-12.5) L 11/26/24 10:36 INR 0.9 (<1.2) 11/26/24 10:36 D-Dimer 0.67 mg/L FEU (<0.60) H 11/26/24 10:36 Abnormal lab findings: Abnormal Labs 11/26/24 11/26/24 11/26/24 10:36 10:36 10:36 WBC 14.13 H RBC 3.97 L Hct 36.9 L MPV 9.0 L Immature Gran # 0.41 H Neutrophils # 9.92 H Monocytes # 1.24 H PT 9.9 L D-Dimer 0.67 H Sodium 128 L Chloride 85 L Carbon Dioxide 43 H* Magnesium 1.5 L Total Protein 5.7 L Albumin 3.3 L - Diagnostic Findings Chest x-ray: image reviewed Assessment and Plan Assessment: Acute COPD exacerbation Chronic left hemidiaphragmatic elevation contributing to her chronic shortness of breath Chronic small right pleural effusion with associated atelectasis or scarring Acute on chronic dyspnea, secondary to a combination of above Sputum sample from 11/12/2024 positive for MRSA and Corynebacterium stratum Chronic hypoxemic respiratory failure, maintained on 3 L of oxygen by nasal cannula Chronic hyponatremia, appears euvolemic, previously maintained on salt tablets, sodium 128 History of mediastinal lymphadenopathy Chronic ongoing tobacco dependence History of marijuana use Chronic lumbar back pain with severe scoliosis with severe degenerative disc disease, disc herniation of L3-S1 with cervical canal stenosis Hypothyroidism History of hypertension History of gastric bypass surgery Bipolar disorder with anxiety Fibromyalgia Plan: Patient's medications, labs, chest x-ray viewed Currently on 3 L/min nasal cannula, which she wears 08/02 at home Chest x-ray findings are stable with a chronic right pleural effusion and associated opacity/scarring and chronic left hemidiaphragm elevation. No new focal opacities Started on empiric azithromycin in the ED Obtain sputum sample Continue bronchodilators [id number], Symbicort inhaler, Spiriva, and IV Solu-Medrol Smoking cessation counseling performed, nicotine replacement offered We will continue to follow I have personally seen and examined the patient, performed the documentation and the assessment and plan as written. Number of minutes spent on the visit:20 On 11/27/2024, the patient is being seen in joint evaluation along with the nurse practitioner. This evaluation was done and 33 minutes. The patient is known to be and I am taking care of her during her most recent hospitalization back in October 2024. She has a complicated history of COPD and chronic left hemidiaphragmatic elevation and chronic stable mediastinal lymphadenopathy. The patient has also chronic hypoxic respiratory failure and she is presenting with worsening shortness of breath. She is also complaining of chronic pain in her back and in the groin area and the patient has severe scoliosis and degenerative disc disease. Please refer to the most recent MRI of the thoracic and lumbar sacral spine that showed multilevel disc herniation most prominent at the level of T3-T4 and T6-T7 and T9-T10. The T9-T10 disc herniation resulted in moderate degree of canal stenosis. The patient also had multilevel degenerative spine disease and scoliosis at the level of the cervical spine and severe neural foraminal stenosis at the level of L2-L3 and L4-L5 and L5-S1. Her white cell count of 12.2, hemoglobin is at 12.5, rest of the blood work is essentially within normal limits. Electrolytes are normal. Troponins are negative. Viral screen is negative. The patient is currently being treated for an acute COPD exacerbation. Chest x-ray findings are essentially chronic. The patient on Symbicort, DuoNeb updrafts and IV Solu-Medrol. Will add [place] for more effective pain control. Will continue to follow. Time with Patient: Greater than 30
[2024-11-27] MEDS: SYMBICORT 160-4.5 MCG INHALER INHALATION SCH (08:12)
[2024-11-27] MEDS: TIOTROPIUM 2.5 MCG INHALER INHALATION SCH (08:12)
[2024-11-27 08:15] LABS: Blood Urea Nitrogen 13.7 mg/dL (9.0-27.0); Chloride 88 mmol/L (96-109); Chol/HDL Ratio 2.13 Ratio; Glucose 249 mg/dL (70-110); LDL Cholesterol,Calculated 94.9 mg/dL (0.0-131.0); Potassium 4.4 mmol/L (3.5-5.5); Sodium 131 mmol/L (135-145); VLDL Calculation 14.72 mg/dL (5.00-40.00)
[2024-11-27 08:16] LABS: Calcium 9.1 mg/dL (8.7-10.3); Carbon Dioxide 35.3 mmol/L (21.6-31.8)
[2024-11-27 08:42] LABS: Basophils # (A) 0.03 X 10*3/uL (0.00-0.10); Basophils % (A) 0.2 %; Eosinophils # (A) 0 X 10*3/uL (0.04-0.35); Eosinophils % (A) 0 %; HGB 12.5 g/dL (12.0-15.0); Lymphocytes # (A) 0.84 X 10*3/uL (0.90-5.00); Lymphocytes % (A) 6.9 %; MCH 29.7 pg (27.0-32.0); MCHC 32.1 g/dL (32.0-37.0); MCV 92.6 FL (80.0-97.0); Monocytes # (A) 0.14 X 10*3/uL (0.20-1.00); Monocytes % (A) 1.1 %; NRBC Per 100 WBC 0 X 10*3/uL (0.00-0.01); Neutrophils # (A) 11.05 X 10*3/uL (1.80-7.70); Neutrophils % (A) 90.2 %; Platelet Count 291 X 10*3/uL (140-440); RBC 4.21 X 10*6/uL (4.10-5.20); RDW 12.4 % (11.5-14.5); WBC 12.26 X 10*3/uL (4.50-10.00)
[2024-11-27] MEDS: LEVOTHYROXINE 75 MCG TAB PO SCH (08:47)
[2024-11-27] MEDS: lisinopriL 10 MG TAB PO SCH (08:47)
[2024-11-27] MEDS: ASPIRIN 325 MG TAB PO SCH (08:47)
[2024-11-27] MEDS: TAMSULOSIN 0.4 MG CAP.ER.24H PO SCH (08:48)
[2024-11-27] MEDS: NICOTINE 21MG/24HR PATCH TRANSDERM SCH (08:48)
[2024-11-27] MEDS: VENLAFAXINE HCL ER 150 MG CAP PO SCH (08:50)
[2024-11-27] MEDS ORDERED: FUROSEMIDE 20 MG TAB PO SCH (09:00)
[2024-11-27] MEDS: FUROSEMIDE 10 MG/ML 4 ML VIAL IV SCH (09:07)
--- NOTE | 2024-11-27 10:19 | P.CRDCN ---
History of Present Illness History of present illness: HISTORY OF PRESENTING ILLNESS This is a pleasant 69-year-old female past medical history significant for COPD, hypertension, pulmonary embolism, fibromyalgia, diabetes mellitus, di astolic heart failure and chronic nicotine dependence. She follows in the office with Dr. Last. We have been asked to see in consultation for shortness of breath. She presented to the hospital with symptoms of shortness of breath that had been going on for approximately 3 days and indicates she has gained 25 pounds in the last 3 weeks. Her NT proBNP is elevated and chest x-ray indicates mild pulmonary vascular congestion. She has been given 1 dose of IV Lasix. She has been seen also by pulmonary is getting antibiotics, IV steroids and nebulizer treatments. DIAGNOSTICS EKG reveals sinus rhythm with frequent PVCs. Telemetry tracings indicate sinus rhythm with PVCs. Chest xray pulmonary vascular congestion. Laboratory reviewed, WBC on admission 14 this morning 12, hemoglobin 12.5, p latelets 291, sodium 131, potassium 4.4, creatinine 0.5, troponin negative x 3, NT proBNP 1290 and LDL 94. Current cardiac medications include lisinopril 10 mg daily, amlodipine 5 mg twice daily, metoprolol tartrate 25 mg twice daily, Lasix 20 mg daily. Most recent echocardiogram obtained March 2024 reveals preserved LV systolic function with ejection fraction 55 to 60%, severely increased left ventricular end-diastolic volume, no significant valvular heart disease. Most recent stress test performed in the office was a Lexiscan stress test January 2023 revealed preserved LV function with EF 60% with a fixed inferior perfusion defect consistent with diaphragmatic attenuation and no reversible ischemia. REVIEW OF SYSTEMS At the time of my exam: CONSTITUTIONAL: Denies fever or chills. CARDIOVASCULAR: Denies chest pain, orthopnea, PND or palpitations. RESPIRATORY: Denies cough. Complains of shortness of breath. GASTROINTESTINAL: Denies abdominal pain, diarrhea, constipation, nausea or vomiting. MUSCULOSKELETAL: Denies myalgias. NEUROLOGIC: Denies numbness, tingling, headache or weakness. ENDOCRINE: Denies fatigue, weight change, polydipsia or polyurina. GENITOURINARY: Denies burning, hematuria or urgency with micturation. HEMATOLOGIC: Denies history of anemia or bleeding. PHYSICAL EXAMINATION Blood pressure 160/77 heart rate 80 afebrile and maintaining oxygen saturation on nasal cannula. CONSTITUTIONAL: No apparent distress. HEENT: Head is normocephalic. Pupils are equal, round. Sclerae anicteric. Mucous membranes of the mouth are moist. No JVD. No carotid bruit. CHEST EXAMINATION: Scattered rhonchi throughout, no wheezes or rales. No chest wall tenderness is noted on palpation or with deep breathing. HEART EXAMINATION: Regular rate and rhythm. S1, S2 heard. No murmurs, gallops or rub. ABDOMEN: Soft, nontender. EXTREMITIES: 2+ peripheral pulses, mild bilateral lower extremity edema and no calf tenderness. NEUROLOGIC EXAMINATION: Patient is awake, alert and oriented x3. ASSESSMENT Acute on chronic diastolic heart failure Hyponatremia COPD exacerbation Hypertension Dyslipidemia Diabetes mellitus Fibromyalgia Chronic nicotine dependence PLAN Change Lasix to IV 40 mg twice daily. Daily weights. Document accurate I and O's. BMP in the morning. We will continue to follow and make recommendations accordingly. Thank you kindly for this consultation. Nurse Practitioner note has been reviewed, I agree with a documented findings and plan of care. Patient was seen and examined. 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 History of Any Multi-Drug Resistant Organisms: None Reported, MRSA Date of last positivie culture/infection: 11/12/24 MDRO Source:: sputum, knee Past Surgical History: Bariatric Surgery, Section, Cholecystectomy, Hysterectomy, Tonsillectomy Additional Past Surgical History / Comment(s): EGD, colonoscopies, gastric bypass, surgery for deviated septum, left cataract removal (having laser procedure on that eye 11/24/23) Past Anesthesia/Blood Transfusion Reactions: Previous Problems w/ Anesthesia Additional Past Anesthesia/Blood Transfusion Reaction / Comment(s): itching after hysterectomy, some kind of breathing problem after gastric bypass-not sure what happened Past Psychological History: Anxiety, Bipolar, Depression, Panic Disorder Additional Psychological History / Comment(s): . Smoking Status: Current every day smoker Past Alcohol Use History: None Reported Additional Past Alcohol Use History / Comment(s): Pt started smoking in 1986 and quit when she went into [facility] 08/2021, started again and smokes about half a pack a day. Past Drug Use History: None Reported Additional Drug Use History / Comment(s): occassional cannabis use per pt - Past Family History Mother Family Medical History: Congestive Heart Failure (CHF), Hypertension Father History Unknown: Yes Additional Family Medical History / Comment(s): Father at the age of 45 yrs d/t having had rheumatic fever as a child and heart valve disease. Medications and Allergies Home Medications Medication Instructions Recorded Confirmed Type Montelukast [Singulair] 10 mg PO HS 12/17/13 11/26/24 History Levothyroxine Sodium [Synthroid] 150 mcg PO DAILY 03/29/20 11/26/24 History Famotidine [Pepcid] 20 mg PO BID 09/03/21 11/26/24 History Tamsulosin [Flomax] 0.4 mg PO DAILY 10/26/21 11/26/24 History Ipratropium-Albuterol Nebulize 3 ml INHALATION RT-QID 11/13/22 11/26/24 History [Duoneb 0.5 mg-3 mg/3 ml Soln] Albuterol Inhaler [Ventolin Hfa 2 puff INHALATION RT-QID PRN #1 11/17/22 11/26/24 Rx Inhaler] each clonazePAM [KlonoPIN ODT] 0.25 mg PO HS 12/12/23 11/26/24 History lamoTRIgine [LaMICtal] 100 mg PO BID 03/18/24 11/26/24 History Metoprolol Tartrate [Lopressor] 25 mg PO BID 05/16/24 11/26/24 History Divalproex ER [Depakote ER] 250 mg PO BID #60 tab 05/26/24 11/26/24 Rx Gabapentin 300 mg PO TID 06/01/24 11/26/24 History Acetaminophen Tab [Tylenol] 650 mg PO Q6HR PRN tab 06/02/24 11/26/24 Rx busPIRone HCL [Buspar] 30 mg PO BID 06/09/24 11/26/24 History Furosemide [Lasix] 20 mg PO DAILY #30 tab 06/22/24 11/26/24 Rx Fluticasone/Umeclidin/Vilanter 1 puff INHALATION RT-DAILY 10/17/24 11/26/24 History [Trelegy Ellipta 200-62.5-25] OLANZapine 15 mg PO HS 10/17/24 11/26/24 History Venlafaxine HCl [Effexor XR] 150 mg PO DAILY 10/17/24 11/26/24 History amLODIPine [Norvasc] 5 mg PO BID 30 Days #60 tab 10/21/24 11/26/24 Rx guaiFENesin [Mucinex] 600 mg PO Q12HR 7 Days #14 tab 10/21/24 11/26/24 Rx lisinopriL [Zestril] 10 mg PO DAILY 30 Days #30 tab 10/21/24 11/26/24 Rx Ipratropium-Albuterol Nebulize 3 ml INHALATION RT-Q2H PRN each 11/13/24 11/26/24 Rx [Duoneb 0.5 mg-3 mg/3 ml Soln] Allergies Allergy/AdvReac Type Severity Reaction Status Date / Time codeine Allergy Unknown Verified 11/26/24 13:49 Childhood Penicillins Allergy Rash/Hives Verified 11/26/24 13:49 Sulfa (Sulfonamide Allergy Rash/Hives Verified 11/26/24 13:49 Antibiotics) Physical Exam Vitals: Vital Signs Temp Pulse Pulse Resp BP BP Pulse Ox 11/27/24 08:28 80 11/27/24 08:13 78 93 L 11/27/24 07:00 98.8 F 74 16 160/77 95 11/27/24 02:44 97.6 F 65 19 151/73 97 11/26/24 23:57 97.7 F 66 17 118/70 94 L 11/26/24 21:37 132/65 11/26/24 20:43 75 135/75 93 L 11/26/24 19:36 70 11/26/24 19:28 67 11/26/24 18:51 97.8 F 72 19 103/59 91 L 11/26/24 16:04 98.8 F 67 16 172/49 93 L 11/26/24 15:22 67 11/26/24 15:10 64 11/26/24 14:50 97.8 F 63 19 161/84 97 11/26/24 11:40 61 11/26/24 11:28 63 11/26/24 11:20 63 18 137/68 95 11/26/24 10:30 20 11/26/24 10:20 98.1 F 67 16 142/79 91 L Intake and Output 11/26/24 11/27/24 11/27/24 22:59 06:59 14:59 Other: Voiding Method Bedside Commode Bedside Commode # Voids 1 2 Weight 77.111 kg Results 11/27/24 05:45 11/27/24 05:45 Cardiac Enzymes 11/26/24 11/26/24 11/26/24 Range/Units 10:36 10:36 14:00 AST 27 (14-36) U/L Troponin I <0.012 <0.012 (0.000-0.034) ng/mL 11/26/24 Range/Units 16:31 AST (14-36) U/L Troponin I <0.012 (0.000-0.034) ng/mL Coagulation 11/26/24 Range/Units 10:36 PT 9.9 L (10.0-12.5) sec APTT 23.9 (22.0-30.0) sec Lipids 11/27/24 Range/Units 05:45 Triglycerides 73.60 (0.00-149.00) mg/dL Cholesterol 207.00 H (0.00-200.00) mg/dL HDL Cholesterol 97.40 H (40.00-60.00) mg/dL Cholesterol/HDL Ratio 2.13 Ratio CBC 11/26/24 11/27/24 Range/Units 10:36 05:45 WBC 14.13 H 12.26 H (4.50-10.00) 10*3/uL RBC 3.97 L 4.21 (4.10-5.20) 10*6/uL Hgb 12.0 12.5 (12.0-15.0) g/dL Hct 36.9 L 39.0 (37.2-46.3) % Plt Count 271 291 (140-440) 10*3/uL Comprehensive Metabolic Panel 11/26/24 11/27/24 Range/Units 10:36 05:45 Sodium 128 L 131 L (137-145) mmol/L Potassium 4.5 4.4 (3.5-5.1) mmol/L Chloride 85 L 88 L (98-107) mmol/L Carbon Dioxide 43 H* 35.3 H (22-30) mmol/L BUN 14 13.7 (7-17) mg/dL Creatinine 0.54 0.5 L (0.52-1.04) mg/dL Glucose 88 249 H (74-99) mg/dL Calcium 9.5 9.1 (8.4-10.2) mg/dL AST 27 (14-36) U/L ALT 28 (4-34) U/L Alkaline Phosphatase 59 (38-126) U/L Total Protein 5.7 L (6.3-8.2) g/dL Albumin 3.3 L (3.5-5.0) g/dL Current Medications Generic Name Dose Route Start Last Admin Trade Name Freq PRN Reason Stop Dose Admin Acetaminophen 650 mg 11/26/24 17:29 11/27/24 09:08 Acetaminophen Tab 325 Mg Tab PO 650 mg Q6HR PRN Administration Mild Pain or Fever > 100.5 Albuterol/Ipratropium 3 ml 11/26/24 16:00 11/27/24 08:13 Ipratropium-Albuterol 3 Ml Neb INHALATION 3 ml RT-QID JEIMY Administration Albuterol/Ipratropium 3 ml 11/26/24 17:29 Ipratropium-Albuterol 3 Ml Neb INHALATION RT-Q2H PRN Shortness Of Breath Or Wheezing Amlodipine Besylate 5 mg 11/26/24 21:00 11/27/24 08:47 Amlodipine 5 Mg Tab PO 5 mg BID JEIMY Administration Aspirin 325 mg 11/27/24 09:00 11/27/24 08:47 Aspirin 325 Mg Tab PO 325 mg DAILY JEIMY Administration Azithromycin 500 mg 11/26/24 13:45 11/26/24 14:02 Azithromycin 500 Mg Tab PO 11/28/24 09:01 500 mg DAILY JEIMY Administration Protocol Budesonide/Formoterol Fumarate 2 puff 11/27/24 08:00 11/27/24 08:12 Symbicort 160-4.5 Mcg Inhaler INHALATION 2 puff RT-BID JEIMY Administration Buspirone HCl 30 mg 11/26/24 21:00 11/27/24 08:48 Buspirone Hcl 10 Mg Tab PO 30 mg BID JEIMY Administration Clonazepam 0.25 mg 11/26/24 21:00 11/26/24 21:38 Clonazepam 0.5 Mg Tab PO 0.25 mg HS JEIMY Administration Divalproex Sodium 250 mg 11/26/24 21:00 11/27/24 08:49 Divalproex Er 250 Mg Tab.Er.24h PO 250 mg BID JEIMY Administration Famotidine 20 mg 11/26/24 21:00 11/27/24 08:48 Famotidine 20 Mg Tab PO 20 mg BID JEIMY Administration Furosemide 40 mg 11/27/24 09:00 11/27/24 09:07 Furosemide 10 Mg/Ml 4 Ml Vial IV 40 mg Q12HR JEIMY Administration Gabapentin 300 mg 11/26/24 22:00 11/27/24 08:47 Gabapentin 300 Mg Cap PO 300 mg TID JEIMY Administration Guaifenesin 600 mg 11/26/24 21:00 11/27/24 08:48 Guaifenesin 600 Mg Tablet.Er PO 600 mg Q12HR JEIMY Administration Lamotrigine 100 mg 11/26/24 21:00 11/27/24 08:47 Lamotrigine 100 Mg Tab PO 100 mg BID JEIMY Administration Levothyroxine Sodium 150 mcg 11/27/24 09:00 11/27/24 08:47 Levothyroxine 75 Mcg Tab PO 150 mcg DAILY JEIMY Administration Lisinopril 10 mg 11/27/24 09:00 11/27/24 08:47 Lisinopril 10 Mg Tab PO 10 mg DAILY JEIMY Administration Methylprednisolone Sodium Succinate 60 mg 11/26/24 02:30 11/27/24 09:08 Methylprednisolone Sod Succi 125 Mg/2 Ml Vial IV 60 mg Q6H JEIMY Administration Metoprolol Tartrate 25 mg 11/26/24 21:00 11/27/24 08:48 Metoprolol Tartrate 25 Mg Tab PO 25 mg BID EJIMY Administration Montelukast Sodium 10 mg 11/26/24 21:00 11/26/24 20:46 Montelukast 10 Mg Tab PO 10 mg HS JEIMY Administration Naloxone HCl 0.2 mg 11/26/24 13:45 Naloxone 0.4 Mg/Ml 1 Ml Vial IVP Q2M PRN Opioid Reversal Nicotine 1 patch 11/27/24 09:00 11/27/24 08:48 Nicotine 21mg/24hr Patch TRANSDERM 1 patch DAILY JEIMY Administration Nitroglycerin 0.4 mg 11/26/24 13:42 Nitroglycerin Sl Tabs 0.4 Mg Tab SUBLINGUAL Q5M PRN Chest Pain Nitroglycerin 1 inch 11/26/24 18:00 11/27/24 00:01 Nitroglycerin Oint 1 Inch/Gm Packet TOPICAL Not Given Q6HR JEIMY Olanzapine 15 mg 11/26/24 21:00 11/26/24 21:38 Olanzapine 5 Mg Tab PO 15 mg HS JEIMY Administration Tamsulosin HCl 0.4 mg 11/27/24 09:00 11/27/24 08:48 Tamsulosin 0.4 Mg Cap.Er.24h PO 0.4 mg DAILY JEIMY Administration Venlafaxine HCl 150 mg 11/27/24 09:00 11/27/24 08:50 Venlafaxine Hcl Er 150 Mg Cap PO 150 mg DAILY JEIMY Administration Intake and Output 11/26/24 11/27/24 11/27/24 22:59 06:59 14:59 Other: Voiding Method Bedside Commode Bedside Commode # Voids 1 2 Weight 77.111 kg 11/27/24 05:45 11/27/24 05:45
[2024-11-27] MEDS: KETOROLAC 15 MG/ML 1 ML VIAL IVP STA (14:18)
[2024-11-27] MEDS ORDERED: KETOROLAC 15 MG/ML 1 ML VIAL IVP PRN (15:03)
[2024-11-27] MEDS: HYDROcodone/APAP 5-325MG 1 EACH TAB PO PRN (15:46)
[2024-11-27 17:24] LABS: Appearance,Urine Clear (Clear); Bilirubin,Urine Negative (Negative); Blood,Urine Negative (Negative); Color,Urine Colorless; Glucose,Urine (UA) 2+ (Negative); Ketones,Urine Negative (Negative); Leukocyte Esterase,Urine Negative (Negative); Nitrite,Urine Negative (Negative); Protein,Urine Negative (Negative); Specific Gravity,Urine 1.014 (1.001-1.035); Urobilinogen,Urine <2.0 mg/dL (<2.0)
--- NOTE | 2024-11-28 09:39 | P.PN ---
Subjective Progress Note Date: 11/27/24 69-year-old female, hypertension, hyperlipidemia, hypothyroidism, 1520 seizure disorder, asthma/COPD, present to the emergency department with concerns with chest discomfort. Onset of symptoms has been about 3 days. Discomfort feels like pressure or tightness. Patient does have some associated dyspnea. Patient states it hurts to take a deep breath. Patient has had a cough that was productive however now is dry. Patient does have leg edema which is somewhat new for her. Patient believes she does have a history of CHF. Patient has gained approximately 25 pounds in the past 3 weeks. Blood work completed in ED reveals WBC of 14.13, hemoglobin 12, platelet of 271, sodium 128, potassium of 4.5, BUN/creatinine of 14/0.54 and blood glucose of 88; BNP is elevated at 1290 Chest x-ray reveals mild pulmonary vascular congestion EKG does not reveal any acute ST or T wave changes 11/27/2024 Patient is seen in follow-up today reporting generalized pain over the lower back and legs reporting spasms is being followed by pulmonary for COPD exacerbation and chronically wears oxygen outpatient. Patient also reporting some chest pain and awaiting cardiology evaluation. Patient has been hospitali zed multiple times regarding this and most recently was discharged recommending outpatient pulmonary follow-up and patient has not followed up as of yet. Patient is continued on breathing inhalational treatments along with inhalers and IV steroids and will continue. Patient is requesting Xanax, Ativan, Dilaudid per nursing staff Review of systems: Constitutional: No reports of fatigue, fever, or chills Cardiovascular: No reports of chest pain or palpitations Respiratory: reports of shortness of breath with cough GI: No reports of nausea, vomiting, or diarrhea : No reports of dysuria or retention Neurovascular: reports of generalized weakness and pain All medications have been reviewed Physical exam: Gen: This is a 69-year-old female who is awake, alert and oriented x 3, well-developed, appears older than stated age, obese HEENT: Head is atraumatic, normocephalic. Pupils equal, round. Sclerae is anicteric. NECK: Supple. No JVD. No lymphadenopathy. No thyromegaly. LUNGS: Diminished breath sounds bilaterally with a few scattered expiratory wheezes and coarse rhonchi noted. No intercostal retractions. HEART: S1, S2 are muffled ABDOMEN: Soft. Bowel sounds are present. No masses. No tenderness. EXTREMITIES: No pedal edema. No calf tenderness. NEUROLOGICAL: Patient is awake, alert and oriented x3. Cranial nerves 2 through 12 are grossly intact. Diffusely weak Assessment: -Acute exacerbation COPD -Chronic hypoxic respiratory failure secondary to above -Chest pain ruled out acute coronary syndrome, troponins negative -New onset CHF; BNP is elevated at 1290; chest x-ray reveals mild pulmonary vascular congestion, awaiting cardiology evaluation, 2D echo pending -Hypertension history -Chronic hyponatremia -Hyperlipidemia history - History of anxiety/depression/bipolar -Chronic pain -THC use -Continued ongoing nicotine dependence -DVT prophylaxis; SCDs - GI prophylaxis -full code Plan: Patient is admitted with pulmonary and cardiology to evaluate and is maintained on [id number] DuoNebs along with inhalers and IV steroids and her chronic O2 recommend increasing activity as tolerated Will follow-up on repeat labs as patient has known history of hyponatremia Encouraged increase activity as tolerated and sitting up out of the bed more frequently Patient is reporting generalized pain all over requesting Xanax, Ativan, Dilaudid per nursing staff, will add Toradol and also [place]. Patient will need outpatient follow-up with pain management as this is chronic and she follows with Dr. Wheeler who she reports does not provide narcotics Awaiting cardiology evaluation Due to multiple complex medical issues, overall prognosis is guarded Possible discharge planning in next 24 to 48 hours The impression and plan of care has been dictated by Audrey Curtis, Nurse Practitioner as directed. Dr. Indigo MD I have performed a history and examination and MDM of this patient, discussed the same with the dictator, and agree with the dictator's assessment and plan as written ,documented as a scribe. Based on total visit time, I have performed more than 50% of the visit. Objective - Vital Signs Vital signs: Vital Signs Temp 98.8 F 11/27/24 07:00 Pulse 80 11/27/24 08:28 Resp 16 11/27/24 07:00 BP 160/77 11/27/24 07:00 Pulse Ox 93 L 11/27/24 08:13 FiO2 Intake & Output 11/26/24 11/27/24 11/27/24 18:59 06:59 18:59 Weight 77.111 kg Other: Voiding Method Bedside Commode Bedside Commode # Voids 1 2 - Labs CBC & Chem 7: 11/27/24 05:45 11/27/24 05:45 Labs: Abnormal Lab Results - Last 24 Hours (Table) 11/26/24 11/26/24 11/26/24 Range/Units 10:36 10:36 10:36 WBC 14.13 H (4.50-10.00) 10*3/uL RBC 3.97 L (4.10-5.20) 10*6/uL Hct 36.9 L (37.2-46.3) % MPV 9.0 L (9.5-12.2) fL Immature Gran # 0.41 H (0.00-0.04) 10*3/uL Neutrophils # 9.92 H (1.80-7.70) 10*3/uL Lymphocytes # (0.90-5.00) X 10*3/uL Monocytes # 1.24 H (0.20-1.00) 10*3/uL Eosinophils # (0.04-0.35) X 10*3/uL PT 9.9 L (10.0-12.5) sec D-Dimer 0.67 H (<0.60) mg/L FEU Sodium 128 L (137-145) mmol/L Chloride 85 L (98-107) mmol/L Carbon Dioxide 43 H* (22-30) mmol/L Creatinine (0.6-1.5) mg/dL BUN/Creatinine Ratio (12.00-20.00) Ratio Glucose (70-110) mg/dL Magnesium 1.5 L (1.6-2.3) mg/dL Total Protein 5.7 L (6.3-8.2) g/dL Albumin 3.3 L (3.5-5.0) g/dL Cholesterol (0.00-200.00) mg/dL HDL Cholesterol (40.00-60.00) mg/dL 11/27/24 11/27/24 Range/Units 05:45 05:45 WBC 12.26 H (4.50-10.00) 10*3/uL RBC (4.10-5.20) 10*6/uL Hct (37.2-46.3) % MPV (9.5-12.2) fL Immature Gran # 0.20 H (0.00-0.04) 10*3/uL Neutrophils # 11.05 H (1.80-7.70) 10*3/uL Lymphocytes # 0.84 L (0.90-5.00) X 10*3/uL Monocytes # 0.14 L (0.20-1.00) 10*3/uL Eosinophils # 0 L (0.04-0.35) X 10*3/uL PT (10.0-12.5) sec D-Dimer (<0.60) mg/L FEU Sodium 131 L (137-145) mmol/L Chloride 88 L (98-107) mmol/L Carbon Dioxide 35.3 H (22-30) mmol/L Creatinine 0.5 L (0.6-1.5) mg/dL BUN/Creatinine Ratio 27.40 H (12.00-20.00) Ratio Glucose 249 H (70-110) mg/dL Magnesium (1.6-2.3) mg/dL Total Protein (6.3-8.2) g/dL Albumin (3.5-5.0) g/dL Cholesterol 207.00 H (0.00-200.00) mg/dL HDL Cholesterol 97.40 H (40.00-60.00) mg/dL
[2024-11-28 09:46] LABS: Chloride 88 mmol/L (96-109); Glucose 320 mg/dL (70-110); Potassium 4.2 mmol/L (3.5-5.5); Sodium 131 mmol/L (135-145)
[2024-11-28 09:47] LABS: BUN/Creat Ratio 33.86 Ratio (12.00-20.00); Blood Urea Nitrogen 23.7 mg/dL (9.0-27.0); Calcium 8.9 mg/dL (8.7-10.3); Carbon Dioxide 34.4 mmol/L (21.6-31.8)
--- NOTE | 2024-11-28 10:49 | P.PN ---
Subjective HISTORY OF PRESENTING ILLNESS This is a pleasant 69-year-old female past medical history significant for COPD, hypertension, pulmonary embolism, fibromyalgia, diabetes mellitus, diastolic heart failure and chronic nicotine dependence. She follows in the office with Dr. Last. We have been asked to see in consultation for shortness of breath. She presented to the hospital with symptoms of shortness of breath that had been going on for approximately 3 days and indicates she has gained 25 pounds in the last 3 weeks. Her NT proBNP is elevated and chest x-ray indicates mild pulmonary vascular congestion. She has been given 1 dose of IV Lasix. She has been seen also by pulmonary is getting antibiotics, IV steroids and nebulizer treatments. DIAGNOSTICS EKG reveals sinus rhythm with frequent PVCs. Telemetry tracings indicate sinus rhythm with PVCs. Chest xray pulmonary vascular congestion. Laboratory reviewed, WBC on admission 14 this morning 12, hemoglobin 12.5, platelets 291, sodium 131, potassium 4.4, creatinine 0.5, troponin negative x 3, NT proBNP 1290 and LDL 94. Current cardiac medications include lisinopril 10 mg daily, amlodipine 5 mg twice daily, metoprolol tartrate 25 mg twice daily, Lasix 20 mg daily. Most recent echocardiogram obtained March 2024 reveals preserved LV systolic function with ejection fraction 55 to 60%, severely increased left ventricular end-diastolic volume, no significant valvular heart disease. Most recent stress test performed in the office was a Lexiscan stress test January 2023 revealed preserved LV function with EF 60% with a fixed inferior perfusion defect consistent with diaphragmatic attenuation and no reversible ischemia. 11/28/2024 Patient seen and examined resting comfortably in bed in no acute distress. Weight is down 1 kg. Intake and output not being accurately documented. Blood pressure 147/70 heart rate 73 afebrile maintaining oxygen saturation on nasal cannula. Laboratory data reviewed, sodium 131, potassium 4.2, creatinine 0.7. PHYSICAL EXAMINATION Blood pressure 160/77 heart rate 80 afebrile and maintaining oxygen saturation on nasal cannula. CONSTITUTIONAL: No apparent distress. HEENT: Head is normocephalic. Pupils are equal, round. Sclerae anicteric. Mucous membranes of the mouth are moist. No JVD. No carotid bruit. CHEST EXAMINATION: No rhonchi, wheezes or rales. No chest wall tenderness is noted on palpation or with deep breathing. HEART EXAMINATION: Regular rate and rhythm. S1, S2 heard. No murmurs, gallops or rub. ABDOMEN: Soft, nontender. EXTREMITIES: 2+ peripheral pulses, mild bilateral lower extremity edema and no calf tenderness. NEUROLOGIC EXAMINATION: Patient is awake, alert and oriented x3. ASSESSMENT Acute on chronic diastolic heart failure Hyponatremia COPD exacerbation Hypertension Dyslipidemia Diabetes mellitus Fibromyalgia Chronic nicotine dependence PLAN Transition to oral diuretics at home dose of 40 mg p.o. daily. Increase activity and hopefully she will be able to go home later this afternoon. Stable from a cardiac perspective. Follow-up with Dr. Last in the office. Nurse Practitioner note has been reviewed, I agree with a documented findings and plan of care. Patient was seen and examined. Objective - Vital Signs Vital signs: Vital Signs Temp 98.1 F 11/28/24 07:50 Pulse 73 11/28/24 08:16 Resp 16 11/28/24 07:50 BP 147/70 11/28/24 07:50 Pulse Ox 93 L 11/28/24 08:08 FiO2 Intake & Output 11/27/24 11/28/24 11/28/24 18:59 06:59 18:59 Weight 76.8 kg Other: Voiding Method Bedside Commode Bedside Commode Bedside Commode - Labs CBC & Chem 7: 11/27/24 05:45 11/28/24 05:09 Labs: Abnormal Lab Results - Last 24 Hours (Table) 11/27/24 11/28/24 Range/Units 16:49 05:09 Sodium 131 L (135-145) mmol/L Chloride 88 L (96-109) mmol/L Carbon Dioxide 34.4 H (21.6-31.8) mmol/L BUN/Creatinine Ratio 33.86 H (12.00-20.00) Ratio Glucose 320 H (70-110) mg/dL Urine Glucose (UA) 2+ H (Negative) Microbiology - Last 24 Hours (Table) 11/27/24 11:30 Gram Stain - Preliminary Sputum Sputum Culture - Preliminary Presumptive Staph aureus
--- NOTE | 2024-11-28 12:02 | P.PN ---
Subjective Progress Note Date: 11/28/24 Patient is a 69-year-old female with past medical history significant for COPD, chronic hypoxemic respiratory failure on 3 L/min nasal cannula, chronic ongoing tobacco dependence, heart failure, pulmonary embolism, hypothyroidism, fibromyalgia, chronic lower back pain, anxiety. Of note, patient recently hospitalized November 09 through November 13 with an acute COPD exacerbation. Sputum culture was positive for MRSA and Corynebacterium stratum during this hospitalization. She was discharged with a combination of DuoNebs, p.o. Levaquin, and prednisone taper. She is also currently using a Symbicort i nhailer, which is going to be transitioned to Trelegy inhaler. Her FEV1 is noted of 64% of predicted at baseline. Chronically oxygen dependent on 3 L/min nasal cannula 08/02. Patient returns to the emergency department yesterday evening with a chief complaint of increased work of breathing, progressive for the last 3 days. She has had associated congested nonproductive cough and wheezing. Also, complaining of chronic pain involving posterior neck, bilateral arms, and diffuse chest. Rated 10 out of 10, described as throbbing. States this is chronic in nature. Workup in the emergency department including a chest x-ray showing a large cardiac silhouette, possible pulmonary vascular conge stion. A chronic right lower lobe opacity and possible pleural effusion with right midlung atelectasis, unchanged. Chronic left hemidiaphragm elevation. No new focal consolidations. Labs remarkable for a CBC with an elevated WBC count of 14, hemoglobin 12, platelets 271. CMP with a chronically low sodium of 128, potassium 4.5, chloride 85, serum bicarb 43, BUN 14, creatinine 0.54, glucose 88. Troponin is less than 0.012 x 3. NT proBNP 1290. Viral 4 Plex negative for influenza A/B, RSV, COVID. Patient currently being evaluated in the general medical floor. She was sleeping when I entered the room. Awakes easily to verbal stimuli, no signs of CO2 narcosis. Breathing is nonlabored. Reports increased acute on chronic shortness of breath over the last 3 days. Associated chest congestion and wheezing. Denies any sputum production, hemoptysis. Denies any sick contacts. Denies any fevers or chills. Denies any nausea, vomiting, diarrhea. Appetite has been good. Continues to smoke cigarettes, approximately 10 cigarettes/day. Current vital signs: Temperature 97.7 F, heart rate 66 bpm, blood pressure 118/70 mmHg, nontachypneic, SpO2 recorded at 94% on her 3 L/min nasal cannula. On today's evaluation 11/30/2024, the patient is being seen for a follow-up. Her pain is under better control as the patient is taking [place] 5 every 6 hours. The patient continues to be bronchospastic. She remains on Symbicort, and the patient remains on IV Solu-Medrol 60 mg q6 hours. No chest pain. No pleurisy. No hemoptysis. Blood work from yesterday was noted. Electrolytes from the patient with a serum bicarb of 34, sodium level at 131 and a potassium level is at 4.2. UA is negative. No other significant events overnight. is at the bedside. She remains on liters of oxygen by nasal cannula. Objective - Vital Signs Vital signs: Vital Signs Temp 98.1 F 11/28/24 07:50 Pulse 71 11/28/24 11:43 Resp 16 11/28/24 07:50 BP 147/70 11/28/24 07:50 Pulse Ox 93 L 11/28/24 08:08 FiO2 Intake & Output 11/27/24 11/28/24 11/28/24 18:59 06:59 18:59 Weight 76.8 kg Other: Voiding Method Bedside Commode Bedside Commode Bedside Commode - Exam GENERAL EXAM: Anxious and tearful, 69-year-old female, on 3 L nasal cannula, not in any respiratory distress. HEAD: Normocephalic. EYES: Normal reaction of pupils, equal size. NOSE: Clear with pink turbinates. THROAT: No erythema or exudates. NECK: No masses, no JVD. CHEST: No chest wall deformity. LUNGS: Equal air entry with scattered rhonchi bilaterally. CVS: S1 and S2 normal with no audible murmur, regular rhythm. ABDOMEN: No hepatosplenomegaly, normal bowel sounds, no guarding or rigidity. SPINE: No scoliosis or deformity SKIN: No rashes CENTRAL NERVOUS SYSTEM: No focal deficits, tone is normal in all 4 extremities. EXTREMITIES: There is no peripheral edema. No clubbing, no cyanosis. Peripheral pulses are intact. - Labs CBC & Chem 7: 11/27/24 05:45 11/28/24 05:09 Labs: Abnormal Lab Results - Last 24 Hours (Table) 11/27/24 11/28/24 Range/Units 16:49 05:09 Sodium 131 L (135-145) mmol/L Chloride 88 L (96-109) mmol/L Carbon Dioxide 34.4 H (21.6-31.8) mmol/L BUN/Creatinine Ratio 33.86 H (12.00-20.00) Ratio Glucose 320 H (70-110) mg/dL Urine Glucose (UA) 2+ H (Negative) Microbiology - Last 24 Hours (Table) 11/27/24 11:30 Gram Stain - Preliminary Sputum Sputum Culture - Preliminary Presumptive Staph aureus Assessment and Plan Assessment: Acute COPD exacerbation Chronic left hemidiaphragmatic elevation contributing to her chronic shortness of breath Chronic small right pleural effusion with associated atelectasis or scarring Acute on chronic dyspnea, secondary to a combination of above Sputum sample from 11/12/2024 positive for MRSA and Corynebacterium stratum Chronic hypoxemic respiratory failure, maintained on 3 L of oxygen by nasal cannula Chronic hyponatremia, appears euvolemic, previously maintained on salt tablets, sodium 128 History of mediastinal lymphadenopathy Chronic ongoing tobacco dependence History of marijuana use Chronic lumbar back pain with severe scoliosis with severe degenerative disc disease, disc herniation of L3-S1 with cervical canal stenosis Hypothyroidism History of hypertension History of gastric bypass surgery Bipolar disorder with anxiety Fibromyalgia Plan: Slightly improved compared to yesterday. Will continue same treatment for now. Currently on 3 L/min nasal cannula, which she wears 08/02 at home Chest x-ray findings are stable with a chronic right pleural effusion and associated opacity/scarring and chronic left hemidiaphragm elevation. No new focal opacities Started on empiric azithromycin in the ED Obtain sputum sample Continue bronchodilators [id number], Symbicort inhaler, Spiriva, and IV Solu-Medrol Smoking cessation counseling performed, nicotine replacement offered Back pain and the groin pain is under better control as the patient is taking [place] for pain control. We will continue to follow
--- NOTE | 2024-11-29 05:17 | P.PN ---
Subjective Progress Note Date: 11/28/24 69-year-old female, hypertension, hyperlipidemia, hypothyroidism, 1520 seizure disorder, asthma/COPD, present to the emergency department with concerns with chest discomfort. Onset of symptoms has been about 3 days. Discomfort feels like pressure or tightness. Patient does have some associated dyspnea. Patient states it hurts to take a deep breath. Patient has had a cough that was productive however now is dry. Patient does have leg edema which is somewhat new for her. Patient believes she does have a history of CHF. Patient has gained approximately 25 pounds in the past 3 weeks. Blood work completed in ED reveals WBC of 14.13, hemoglobin 12, platelet of 271, sodium 128, potassium of 4.5, BUN/creatinine of 14/0.54 and blood glucose of 88; BNP is elevated at 1290 Chest x-ray reveals mild pulmonary vascular congestion EKG does not reveal any acute ST or T wave changes 11/27/2024 Patient is seen in follow-up today reporting generalized pain over the lower back and legs reporting spasms is being followed by pulmonary for COPD exacerbation and chronically wears oxygen outpatient. Patient also reporting some chest pain and awaiting cardiology evaluation. Patient has been hospitali zed multiple times regarding this and most recently was discharged recommending outpatient pulmonary follow-up and patient has not followed up as of yet. Patient is continued on breathing inhalational treatments along with inhalers and IV steroids and will continue. Patient is requesting Xanax, Ativan, Dilaudid per nursing staff 11/28/2024 Patient is seen in follow-up this morning with cardiology and pulmonary following. Patient was evaluated by cardiology pending to continue with current regimen and transition to oral Lasix and continue with outpatient follow-up with Dr. Last in 1 to 2 weeks. As well maintained on DuoNebs and IV steroids and will continue this patient continues to have some expiratory wheezes noted. Patient has been encouraged to increase activity as tolerated and will continue current pain control. Will refer patient to pain management outpatient as patient has chronic pain and anxiety. Patient is afebrile with no reports of chest pains or palpitations. Patient is tolerating diet with no reported nausea or vomiting. Review of systems: Constitutional: No reports of fatigue, fever, or chills Cardiovascular: No reports of chest pain or palpitations Respiratory: reports of shortness of breath with cough GI: No reports of nausea, vomiting, or diarrhea : No reports of dysuria or retention Neurovascular: reports of generalized weakness and back pain All medications have been reviewed Physical exam: Gen: This is a 69-year-old female who is awake, alert and oriented x 3, well- developed, anxious at times, appears older than stated age, obese HEENT: Head is atraumatic, normocephalic. Pupils equal, round. Sclerae is anicteric. NECK: Supple. No JVD. No lymphadenopathy. No thyromegaly. LUNGS: Diminished breath sounds bilaterally with a few scattered expiratory wheezes and coarse rhonchi noted. No intercostal retractions. HEART: S1, S2 are muffled ABDOMEN: Soft. Bowel sounds are present. No masses. No tenderness. EXTREMITIES: No pedal edema. No calf tenderness. NEUROLOGICAL: Patient is awake, alert and oriented x3. Cranial nerves 2 through 12 are grossly intact. Diffusely weak Assessment: -Acute exacerbation COPD -Chronic hypoxic respiratory failure secondary to above -Chest pain ruled out acute coronary syndrome, troponins negative -Acute on chronic diastolic congestive heart failure, EF is preserved at 60% -Hypertension history -Chronic hyponatremia, 131 -Hyperlipidemia history - History of anxiety/depression/bipolar -Chronic pain -THC use -Continued ongoing nicotine dependence -DVT prophylaxis; SCDs - GI prophylaxis -full code Plan: Patient is admitted with pulmonary and cardiology following and is maintained on [id number] DuoNebs along with inhalers and IV steroids and her chronic O2 recommend increasing activity as tolerated Will follow-up on repeat labs as patient has known history of hyponatremia stab le at 131 Encouraged increase activity as tolerated and sitting up out of the bed more frequently Patient is reporting generalized pain all over requesting Xanax, Ativan, Dilaudid per nursing staff, will add Toradol and also [place]. Patient will need outpatient follow-up with pain management as this is chronic and she follows with Dr. Wheeler who she reports does not provide narcotics Cardiology has evaluated the patient recommending outpatient follow-up with game master Dr. Last and continuing current medication regimen Pulmonary following for another 24 hours and continuing on DuoNebs and IV steroids Due to multiple complex medical issues, overall prognosis is guarded Possible discharge planning in next 24 hours The impression and plan of care has been dictated by Audrey Curtis, Nurse Practitioner as directed. Dr. Indigo MD I have performed a history and examination and MDM of this patient, discussed the same with the dictator, and agree with the dictator's assessment and plan as written ,documented as a scribe. Based on total visit time, I have performed more than 50% of the visit. Objective - Vital Signs Vital signs: Vital Signs Temp 98.1 F 11/28/24 07:50 Pulse 73 11/28/24 08:16 Resp 16 11/28/24 07:50 BP 147/70 11/28/24 07:50 Pulse Ox 93 L 11/28/24 08:08 FiO2 Intake & Output 11/27/24 11/28/24 11/28/24 18:59 06:59 18:59 Weight 76.8 kg Other: Voiding Method Bedside Commode Bedside Commode Bedside Commode - Labs CBC & Chem 7: 11/27/24 05:45 11/28/24 05:09 Labs: Abnormal Lab Results - Last 24 Hours (Table) 11/27/24 Range/Units 16:49 Urine Glucose (UA) 2+ H (Negative) Microbiology - Last 24 Hours (Table) 11/27/24 11:30 Gram Stain - Preliminary Sputum
[2024-11-29] MEDS: FUROSEMIDE 40 MG TAB PO SCH (09:05)
--- NOTE | 2024-11-29 11:21 | P.PN ---
Subjective HISTORY OF PRESENTING ILLNESS This is a pleasant 69-year-old female past medical history significant for COPD, hypertension, pulmonary embolism, fibromyalgia, diabetes mellitus, diastolic heart failure and chronic nicotine dependence. She follows in the office with Dr. Last. We have been asked to see in consultation for shortness of breath. She presented to the hospital with symptoms of shortness of breath that had been going on for approximately 3 days and indicates she has gained 25 pounds in the last 3 weeks. Her NT proBNP is elevated and chest x-ray indicates mild pulmonary vascular congestion. She has been given 1 dose of IV Lasix. She has been seen also by pulmonary is getting antibiotics, IV steroids and nebulizer treatments. DIAGNOSTICS EKG reveals sinus rhythm with frequent PVCs. Telemetry tracings indicate sinus rhythm with PVCs. Chest xray pulmonary vascular congestion. Laboratory reviewed, WBC on admission 14 this morning 12, hemoglobin 12.5, platelets 291, sodium 131, potassium 4.4, creatinine 0.5, troponin negative x 3, NT proBNP 1290 and LDL 94. Current cardiac medications include lisinopril 10 mg daily, amlodipine 5 mg twice daily, metoprolol tartrate 25 mg twice daily, Lasix 20 mg daily. Most recent echocardiogram obtained March 2024 reveals preserved LV systolic function with ejection fraction 55 to 60%, severely increased left ventricular end-diastolic volume, no significant valvular heart disease. Most recent stress test performed in the office was a Lexiscan stress test January 2023 revealed preserved LV function with EF 60% with a fixed inferior perfusion defect consistent with diaphragmatic attenuation and no reversible ischemia. 11/28/2024 Patient seen and examined resting comfortably in bed in no acute distress. Weight is down 1 kg. Intake and output not being accurately documented. Blood pressure 147/70 heart rate 73 afebrile maintaining oxygen saturation on nasal cannula. Laboratory data reviewed, sodium 131, potassium 4.2, creatinine 0.7. 11/29/2024 Patient seen and examined resting comfortably in bed in no acute distress. Lower extremity edema completely resolved. Blood pressure 142/69 heart rate 68 afebrile maintaining oxygen saturation on nasal cannula. PHYSICAL EXAMINATION CONSTITUTIONAL: No apparent distress. HEENT: Head is normocephalic. Pupils are equal, round. Sclerae anicteric. Mucous membranes of the mouth are moist. No JVD. No carotid bruit. CHEST EXAMINATION: No rhonchi, wheezes or rales. No chest wall tenderness is noted on palpation or with deep breathing. HEART EXAMINATION: Regular rate and rhythm. S1, S2 heard. No murmurs, gallops or rub. ABDOMEN: Soft, nontender. EXTREMITIES: 2+ peripheral pulses, no lower extremity edema and no calf tenderness. NEUROLOGIC EXAMINATION: Patient is awake, alert and oriented x3. ASSESSMENT Acute on chronic diastolic heart failure Hyponatremia COPD exacerbation Hypertension Dyslipidemia Diabetes mellitus Fibromyalgia Chronic nicotine dependence PLAN Stable for discharge from a cardiac perspective. We will follow along as needed, please call with further questions or concerns. Follow-up with Dr. Last in the office. Nurse Practitioner note has been reviewed, I agree with a documented findings and plan of care. Patient was seen and examined. Objective - Vital Signs Vital signs: Vital Signs Temp 97.9 F 11/29/24 07:00 Pulse 68 11/29/24 08:35 Resp 16 11/29/24 07:00 BP 142/69 11/29/24 07:00 Pulse Ox 94 L 11/29/24 07:00 FiO2 Intake & Output 11/28/24 11/29/24 11/29/24 18:59 06:59 18:59 Intake Total 240 Balance 240 Weight 79.8 kg Intake: Oral 240 Other: Voiding Method Bedside Commode Bedside Commode # Voids 3 1 - Labs CBC & Chem 7: 11/27/24 05:45 11/28/24 05:09 Labs: Microbiology - Last 24 Hours (Table) 11/27/24 11:30 Gram Stain - Final Sputum Sputum Culture - Final Methicillin resist S. aureus
--- NOTE | 2024-11-29 17:14 | P.PN ---
Subjective Progress Note Date: 11/29/24 Patient is a 69-year-old female with past medical history significant for COPD, chronic hypoxemic respiratory failure on 3 L/min nasal cannula, chronic ongoing tobacco dependence, heart failure, pulmonary embolism, hypothyroidism, fibromyalgia, chronic lower back pain, anxiety. Of note, patient recently hospitalized November 09 through November 13 with an acute COPD exacerbation. Sputum culture was positive for MRSA and Corynebacterium stratum during this hospitalization. She was discharged with a combination of DuoNebs, p.o. Levaquin, and prednisone taper. She is also currently using a Symbicort i nhailer, which is going to be transitioned to Trelegy inhaler. Her FEV1 is noted of 64% of predicted at baseline. Chronically oxygen dependent on 3 L/min nasal cannula 08/02. Patient returns to the emergency department yesterday evening with a chief complaint of increased work of breathing, progressive for the last 3 days. She has had associated congested nonproductive cough and wheezing. Also, complaining of chronic pain involving posterior neck, bilateral arms, and diffuse chest. Rated 10 out of 10, described as throbbing. States this is chronic in nature. Workup in the emergency department including a chest x-ray showing a large cardiac silhouette, possible pulmonary vascular conge stion. A chronic right lower lobe opacity and possible pleural effusion with right midlung atelectasis, unchanged. Chronic left hemidiaphragm elevation. No new focal consolidations. Labs remarkable for a CBC with an elevated WBC count of 14, hemoglobin 12, platelets 271. CMP with a chronically low sodium of 128, potassium 4.5, chloride 85, serum bicarb 43, BUN 14, creatinine 0.54, glucose 88. Troponin is less than 0.012 x 3. NT proBNP 1290. Viral 4 Plex negative for influenza A/B, RSV, COVID. Patient currently being evaluated in the general medical floor. She was sleeping when I entered the room. Awakes easily to verbal stimuli, no signs of CO2 narcosis. Breathing is nonlabored. Reports increased acute on chronic shortness of breath over the last 3 days. Associated chest congestion and wheezing. Denies any sputum production, hemoptysis. Denies any sick contacts. Denies any fevers or chills. Denies any nausea, vomiting, diarrhea. Appetite has been good. Continues to smoke cigarettes, approximately 10 cigarettes/day. Current vital signs: Temperature 97.7 F, heart rate 66 bpm, blood pressure 118/70 mmHg, nontachypneic, SpO2 recorded at 94% on her 3 L/min nasal cannula. On today's evaluation 11/30/2024, the patient is being seen for a follow-up. Her pain is under better control as the patient is taking [place] 5 every 6 hours. The patient continues to be bronchospastic. She remains on Symbicort, and the patient remains on IV Solu-Medrol 60 mg q6 hours. No chest pain. No pleurisy. No hemoptysis. Blood work from yesterday was noted. Electrolytes from the patient with a serum bicarb of 34, sodium level at 131 and a potassium level is at 4.2. UA is negative. No other significant events overnight. is at the bedside. She remains on liters of oxygen by nasal cannula. 11/29/2024, the patient is being seen for a follow-up. Being treated for an acute COPD exacerbation. Remains on same treatment. Still on oxygen at 3 L with a pulse ox of 97%. Remains on DuoNeb updrafts. Remains on Symbicort. Remains on IV Solu-Medrol. Feeling improved. Less short of breath. Electrolytes are all stable and the patient has chronic metabolic alkalosis with a serum bicarb of 34. BUN is 23 with a creatinine of 0.7. Being also seen by cardiology. Maintained on Lasix 40 mg p.o. daily. Rest of medication remains unchanged. Sputum sample was positive for MRSA. Objective - Vital Signs Vital signs: Vital Signs Temp 98.2 F 11/29/24 14:13 Pulse 68 11/29/24 15:49 Resp 16 11/29/24 14:13 BP 130/65 11/29/24 14:13 Pulse Ox 97 11/29/24 14:13 FiO2 Intake & Output 11/28/24 11/29/24 11/29/24 18:59 06:59 18:59 Intake Total 240 Balance 240 Weight 79.8 kg Intake: Oral 240 Other: Voiding Method Bedside Commode Bedside Commode # Voids 3 1 - Exam GENERAL EXAM: Anxious and tearful, 69-year-old female, on 3 L nasal cannula, not in any respiratory distress. HEAD: Normocephalic. EYES: Normal reaction of pupils, equal size. NOSE: Clear with pink turbinates. THROAT: No erythema or exudates. NECK: No masses, no JVD. CHEST: No chest wall deformity. LUNGS: Equal air entry with scattered rhonchi bilaterally. CVS: S1 and S2 normal with no audible murmur, regular rhythm. ABDOMEN: No hepatosplenomegaly, normal bowel sounds, no guarding or rigidity. SPINE: No scoliosis or deformity SKIN: No rashes CENTRAL NERVOUS SYSTEM: No focal deficits, tone is normal in all 4 extremities. EXTREMITIES: There is no peripheral edema. No clubbing, no cyanosis. Peripheral pulses are intact. - Labs CBC & Chem 7: 11/27/24 05:45 11/28/24 05:09 Labs: Microbiology - Last 24 Hours (Table) 11/27/24 11:30 Gram Stain - Final Sputum Sputum Culture - Final Methicillin resist S. aureus Assessment and Plan Assessment: Acute COPD exacerbation, improving and the patient has a positive MRSA in the sputum. rule out underlying staphylococcal tracheobronchitis Chronic left hemidiaphragmatic elevation contributing to her chronic shortness of breath Chronic small right pleural effusion with associated atelectasis or scarring Acute on chronic dyspnea, secondary to a combination of above Sputum sample from 11/12/2024 positive for MRSA and Corynebacterium stratum Chronic hypoxemic respiratory failure, maintained on 3 L of oxygen by nasal cannula Chronic hyponatremia, appears euvolemic, previously maintained on salt tablets, sodium 128 History of mediastinal lymphadenopathy Chronic ongoing tobacco dependence History of marijuana use Chronic lumbar back pain with severe scoliosis with severe degenerative disc disease, disc herniation of L3-S1 with cervical canal stenosis Hypothyroidism History of hypertension History of gastric bypass surgery Bipolar disorder with anxiety Fibromyalgia Plan: Clinically stable and continues to improve. Currently on 3 L/min nasal cannula, which she wears 08/02 at home Chest x-ray findings are stable with a chronic right pleural effusion and associated opacity/scarring and chronic left hemidiaphragm elevation. No new focal opacities Obtain sputum sample and this was positive for MRSA the patient was placed on doxycycline. Continue bronchodilators [id number], Symbicort inhaler, Spiriva, and IV Solu-Medrol Smoking cessation counseling performed, nicotine replacement offered Back pain and the groin pain is under better control as the patient is taking [place] for pain control. We will continue to follow
[2024-11-29] MEDS: DOXYCYCLINE 100 MG TABLET PO SCH (21:01)
--- NOTE | 2024-11-30 00:59 | P.PN ---
Subjective Progress Note Date: 11/29/24 69-year-old female, hypertension, hyperlipidemia, hypothyroidism, 1520 seizure disorder, asthma/COPD, present to the emergency department with concerns with chest discomfort. Onset of symptoms has been about 3 days. Discomfort feels like pressure or tightness. Patient does have some associated dyspnea. Patient states it hurts to take a deep breath. Patient has had a cough that was productive however now is dry. Patient does have leg edema which is somewhat new for her. Patient believes she does have a history of CHF. Patient has gained approximately 25 pounds in the past 3 weeks. Blood work completed in ED reveals WBC of 14.13, hemoglobin 12, platelet of 271, sodium 128, potassium of 4.5, BUN/creatinine of 14/0.54 and blood glucose of 88; BNP is elevated at 1290 Chest x-ray reveals mild pulmonary vascular congestion EKG does not reveal any acute ST or T wave changes 11/27/2024 Patient is seen in follow-up today reporting generalized pain over the lower back and legs reporting spasms is being followed by pulmonary for COPD exacerbation and chronically wears oxygen outpatient. Patient also reporting some chest pain and awaiting cardiology evaluation. Patient has been hospitali zed multiple times regarding this and most recently was discharged recommending outpatient pulmonary follow-up and patient has not followed up as of yet. Patient is continued on breathing inhalational treatments along with inhalers and IV steroids and will continue. Patient is requesting Xanax, Ativan, Dilaudid per nursing staff 11/28/2024 Patient is seen in follow-up this morning with cardiology and pulmonary following. Patient was evaluated by cardiology pending to continue with current regimen and transition to oral Lasix and continue with outpatient follow-up with Dr. Last in 1 to 2 weeks. As well maintained on DuoNebs and IV steroids and will continue this patient continues to have some expiratory wheezes noted. Patient has been encouraged to increase activity as tolerated and will continue current pain control. Will refer patient to pain management outpatient as patient has chronic pain and anxiety. Patient is afebrile with no reports of chest pains or palpitations. Patient is tolerating diet with no reported nausea or vomiting. 11/29/2024 Patient is seen in follow-up today reporting she is continuing to have significant shortness of breath and gasping for air. Patient is maintained on her chronic 3 L via nasal cannula and has been cleared by cardiology. Patient continues on IV steroids along with [id number] DuoNeb treatments and repeat sputum culture continues to show MRSA. Doxycycline being added per pulmonary. Will monitor 1 more night and encouraged to increase activity as tolerated with possible discharge in the next 24 hours. Patient reports weakness. Review of systems: Constitutional: No reports of fatigue, fever, or chills Cardiovascular: No reports of chest pain or palpitations Respiratory: reports of shortness of breath with cough GI: No reports of nausea, vomiting, or diarrhea : No reports of dysuria or retention Neurovascular: reports of generalized weakness and back pain All medications have been reviewed Physical exam: Gen: This is a 69-year-old female who is awake, alert and oriented x 3, well- developed, anxious at times, appears older than stated age, obese HEENT: Head is atraumatic, normocephalic. Pupils equal, round. Sclerae is anicteric. NECK: Supple. No JVD. No lymphadenopathy. No thyromegaly. LUNGS: Diminished breath sounds bilaterally with a few scattered expiratory wheezes and coarse rhonchi noted. Improved aeration on exam. No intercostal retractions. HEART: S1, S2 are muffled ABDOMEN: Soft. Bowel sounds are present. No masses. No tenderness. EXTREMITIES: No pedal edema. No calf tenderness. NEUROLOGICAL: Patient is awake, alert and oriented x3. Cranial nerves 2 through 12 are grossly intact. Diffusely weak Assessment: -Acute exacerbation COPD -Chronic hypoxic respiratory failure secondary to above -Chest pain ruled out acute coronary syndrome, troponins negative -Sputum positive for MRSA -Acute on chronic diastolic congestive heart failure, EF is preserved at 60% -Hypertension history -Chronic hyponatremia, 131 -Hyperlipidemia history - History of anxiety/depression/bipolar -Chronic pain -THC use -Continued ongoing nicotine dependence -DVT prophylaxis; SCDs - GI prophylaxis -full code Plan: Patient is admitted with pulmonary and cardiology following and is maintained on [id number] DuoNebs along with inhalers and IV steroids and her chronic O2 recommend increasing activity as tolerated Encouraged increase activity as tolerated and sitting up out of the bed more frequently. Patient reports she is significantly weak and nursing staff reports she has been up to the bedside commode by herself and back to bed. Patient is reporting generalized pain and weakness with continued shortness of breath and does not feel ready for discharge Cardiology has evaluated the patient recommending outpatient follow-up with security rover Dr. Last and continuing current medication regimen Pulmonary following for another 24 hours and continuing on DuoNebs and IV steroids. Patient being started on doxycycline and has completed Zithromax and sputum culture continues to report MRSA Due to multiple complex medical issues, overall prognosis is guarded Possible discharge planning in next 24 hours The impression and plan of care has been dictated by Audrey Curtis, Nurse Practitioner as directed. Dr. Indigo MD I have performed a history and examination and MDM of this patient, discussed the same with the dictator, and agree with the dictator's assessment and plan as written ,documented as a scribe. Based on total visit time, I have performed more than 50% of the visit. Objective - Vital Signs Vital signs: Vital Signs Temp 98.6 F 11/29/24 19:00 Pulse 71 11/29/24 20:16 Resp 18 11/29/24 20:16 BP 119/55 11/29/24 19:00 Pulse Ox 95 11/29/24 19:00 FiO2 Intake & Output 11/29/24 11/29/24 11/30/24 06:59 18:59 06:59 Intake Total 780 Balance 780 Weight 79.8 kg Intake: Oral 780 Other: Voiding Method Bedside Commode Bedside Commode # Voids 3 - Labs CBC & Chem 7: 11/27/24 05:45 11/28/24 05:09 Labs: Microbiology - Last 24 Hours (Table) 11/27/24 11:30 Gram Stain - Final Sputum Sputum Culture - Final Methicillin resist S. aureus
[2024-11-30 07:22] VITALS: BP 184/79; RESP 18; TEMP 97.9
--- NOTE | 2024-11-30 09:41 | XR ---
EXAMINATION TYPE: XR chest 1V portable DATE OF EXAM: 11/30/2024 9:35 AM COMPARISON: Chest radiographs from 11/26/2024 CLINICAL INDICATION: Female, 69 years old with history of copd; TECHNIQUE: XR chest 1V portable Frontal view of the chest. FINDINGS: Lungs/Pleura: Right midlung platelike atelectasis. There is no evidence of pleural effusion, focal co nsolidation, or pneumothorax. Pulmonary vascularity: Unremarkable. Heart/mediastinum: Cardiomediastinal silhouette is unremarkable. Musculoskeletal: No acute osseous pathology. IMPRESSION: Stable exam with right midlung atelectasis, No acute cardiopulmonary disease/process. [facility], , 11/30/2024 9:39 AM
[2024-11-30 11:55] VITALS: PULSE 74
== END 2024-11-30 14:36 | disposition home or self-care (01) | DRG 291 ==
LOC: EC 10:19 → 6NMEDSUR 13:45 → OBSVTOIN 13:46 → 6NMEDSUR 14:32
PROVIDERS: ADMIT Internal Medicine; ATTEND Internal Medicine
DX: I11.0 Hypertensive heart disease with heart failure (principal); I50.33 Acute on chronic diastolic (congestive) heart failure; E87.3 Alkalosis; J44.1 Chronic obstructive pulmonary disease with (acute) exacerbation; E87.1 Hypo-osmolality and hyponatremia; J90 Pleural effusion, not elsewhere classified; J96.11 Chronic respiratory failure with hypoxia; E11.9 Type 2 diabetes mellitus without complications; B95.62 Methicillin resistant Staphylococcus aureus infection as the cause of diseases classified elsewhere; G40.909 Epilepsy, unspecified, not intractable, without status epilepticus; F31.9 Bipolar disorder, unspecified; E03.9 Hypothyroidism, unspecified; J98.11 Atelectasis; Z11.52 Encounter for screening for COVID-19; F17.210 Nicotine dependence, cigarettes, uncomplicated; F41.0 Panic disorder [episodic paroxysmal anxiety]; M41.9 Scoliosis, unspecified; M79.7 Fibromyalgia; M51.369 Other intervertebral disc degeneration, lumbar region without mention of lumbar back pain or lower extremity pain; Z79.890 Hormone replacement therapy; J98.6 Disorders of diaphragm; M19.90 Unspecified osteoarthritis, unspecified site; E78.5 Hyperlipidemia, unspecified; G89.29 Other chronic pain; I49.3 Ventricular premature depolarization; M50.30 Other cervical disc degeneration, unspecified cervical region; M51.27 Other intervertebral disc displacement, lumbosacral region; M48.02 Spinal stenosis, cervical region; Z82.49 Family history of ischemic heart disease and other diseases of the circulatory system; Z79.899 Other long term (current) drug therapy; Z79.52 Long term (current) use of systemic steroids; Z86.711 Personal history of pulmonary embolism; Z90.710 Acquired absence of both cervix and uterus; Z98.42 Cataract extraction status, left eye; Z98.84 Bariatric surgery status; Z99.81 Dependence on supplemental oxygen; Z88.5 Allergy status to narcotic agent; Z88.0 Allergy status to penicillin; Z88.2 Allergy status to sulfonamides; Z87.01 Personal history of pneumonia (recurrent); Z87.440 Personal history of urinary (tract) infections; Z90.49 Acquired absence of other specified parts of digestive tract; Z96.643 Presence of artificial hip joint, bilateral
CPT/HCPCS: 36415; 71045; 71046; 80048; 80053; 80061; 80164; 80175; 81003; 83735; 83880; 84484; 85025; 85379; 85610; 85730; 87070; 87077; 87186; 87205; 87636; 93005; 94640; 94760; 96374; 96375; 99285

== ENCOUNTER 2024-12-24 11:16 | Observation (INO) | payer MEDICARE ==
--- NOTE | 2024-12-24 11:35 | ED ---
General Adult HPI - General Chief complaint: Shortness of Breath Stated complaint: ИВАН Time Seen by Provider: 12/24/24 11:23 Source: patient, RN notes reviewed Mode of arrival: wheelchair Limitations: no limitations - History of Present Illness Initial comments: Patient is a 69-year-old female present to the emergency department with concerns with difficulty breathing. Symptoms have progressed over the past few days. Patient has had increased difficulty with her breathing over the past month or 2. Patient has had several admissions. Previous admissions reviewed. Patient has cough with clear liquidy sputum. No fever. Patient has some mild chest discomfort associated. Patient also has some mild leg swelling associated. Patient has history of COPD and CHF. - Related Data Home Medications Medication Instructions Recorded Confirmed Montelukast [Singulair] 10 mg PO HS 12/17/13 12/19/24 Levothyroxine Sodium [Synthroid] 150 mcg PO DAILY 03/29/20 12/19/24 Famotidine [Pepcid] 20 mg PO BID 09/03/21 12/19/24 Tamsulosin [Flomax] 0.4 mg PO DAILY 10/26/21 12/19/24 Ipratropium-Albuterol Nebulize 3 ml INHALATION RT-QID 11/13/22 12/19/24 [Duoneb 0.5 mg-3 mg/3 ml Soln] clonazePAM [KlonoPIN ODT] 0.25 mg PO HS 12/12/23 12/19/24 lamoTRIgine [LaMICtal] 100 mg PO BID 03/18/24 12/19/24 Metoprolol Tartrate [Lopressor] 25 mg PO BID 05/16/24 12/19/24 Gabapentin 300 mg PO TID 06/01/24 12/19/24 busPIRone HCL [Buspar] 30 mg PO BID 06/09/24 12/19/24 Fluticasone/Umeclidin/Vilanter 1 puff INHALATION RT-DAILY 10/17/24 12/19/24 [Trelegy Ellipta 200-62.5-25] OLANZapine 15 mg PO HS 10/17/24 12/19/24 Venlafaxine HCl [Effexor XR] 150 mg PO DAILY 10/17/24 12/19/24 Furosemide [Lasix] 40 mg PO DAILY 05/26/25 06/03/25 HYDROcodone/APAP 5-325MG [[place] 1 tab PO BID PRN 12/11/24 12/19/24 5-325] Previous Rx's Medication Instructions Recorded Albuterol Inhaler [Ventolin Hfa 2 puff INHALATION RT-QID PRN #1 11/17/22 Inhaler] each Divalproex ER [Depakote ER] 250 mg PO BID #60 tab 05/26/24 Acetaminophen Tab [Tylenol] 650 mg PO Q6HR PRN tab 06/02/24 amLODIPine [Norvasc] 5 mg PO BID 30 Days #60 tab 10/21/24 guaiFENesin [Mucinex] 600 mg PO Q12HR 7 Days #14 tab 10/21/24 lisinopriL [Zestril] 10 mg PO DAILY 30 Days #30 tab 10/21/24 Ipratropium-Albuterol Nebulize 3 ml INHALATION RT-Q2H PRN each 11/13/24 [Duoneb 0.5 mg-3 mg/3 ml Soln] Nicotine 21Mg/24Hr Patch [Habitrol] 1 patch TRANSDERM DAILY #30 patch 11/30/24 Nitroglycerin Sl Tabs [Nitrostat] 0.4 mg SUBLINGUAL Q5M PRN #20 tab 11/30/24 ALPRAZolam [Xanax] 0.25 mg PO BID PRN 5 Days #10 tab 12/13/24 predniSONE See Taper PO DIRECTED #30 tab 12/13/24 Azithromycin [Zithromax] 500 mg PO DAILY #2 tab 12/20/24 Allergies Allergy/AdvReac Type Severity Reaction Status Date / Time codeine Allergy Unknown Verified 12/24/24 11:21 Childhood Penicillins Allergy Rash/Hives Verified 12/24/24 11:21 Sulfa (Sulfonamide Allergy Rash/Hives Verified 12/24/24 11:21 Antibiotics) Review of Systems ROS Statement: Those systems with pertinent positive or pertinent negative responses have been documented in the HPI. ROS Other: All systems not noted in ROS Statement are negative. Constitutional: Denies: fever Eyes: Denies: eye pain ENT: Denies: ear pain Respiratory: Reports: as per HPI, cough, dyspnea Cardiovascular: Reports: as per HPI Endocrine: Reports: fatigue Gastrointestinal: Denies: abdominal pain Past Medical History Past Medical History: Asthma, Heart Failure, COPD, Fibromyalgia, GERD/Reflux, Hypertension, Osteoarthritis (OA), Pneumonia, Pulmonary Embolus (PE), Skin Disorder, Thyroid Disorder Additional Past Medical History / Comment(s): Spinal Stenosis, Cervical disc disease/stenosis, scoliosis, numbness/tingling L side of face/neck, hx of L hemidiaphragmatic elevation-possibly genetic, recently bronchitis and past bronchitis, electrolyte problem/kidney function being affected, hx of pulmonary emboli, past bilateral lower extremity cellulitis, edema lower extremities, IBS, hemorrhoids, benign colon polyps, sinus problems, UTIs, bacteremia/sepsis, cardiac murmur, past L ankle and L wrist fractures. History of Any Multi-Drug Resistant Organisms: MRSA Date of last positivie culture/infection: 11/27/24 MDRO Source:: sputum, knee Past Surgical History: Bariatric Surgery, Section, Cholecystectomy, Hysterectomy, Tonsillectomy Additional Past Surgical History / Comment(s): EGD, colonoscopies, gastric bypass, surgery for deviated septum, left cataract removal (having laser procedure on that eye 11/24/23) Past Anesthesia/Blood Transfusion Reactions: Previous Problems w/ Anesthesia Additional Past Anesthesia/Blood Transfusion Reaction / Comment(s): itching after hysterectomy, some kind of breathing problem after gastric bypass-not sure what happened Past Psychological History: Anxiety, Bipolar, Depression, Panic Disorder Smoking Status: Current every day smoker Past Alcohol Use History: None Reported Past Drug Use History: Marijuana - Past Family History Mother Family Medical History: Congestive Heart Failure (CHF), Hypertension Father History Unknown: Yes Additional Family Medical History / Comment(s): Father at the age of 45 yrs d/t having had rheumatic fever as a child and heart valve disease. General Exam Limitations: no limitations General appearance: alert Head exam: Present: normocephalic Eye exam: Present: normal appearance Neck exam: Present: normal inspection Respiratory exam: Present: wheezes, decreased breath sounds. Absent: respiratory distress Cardiovascular Exam: Present: regular rate, normal rhythm GI/Abdominal exam: Present: soft. Absent: tenderness Extremities exam: Present: pedal edema. Absent: calf tenderness Neurological exam: Present: alert Psychiatric exam: Present: anxious Skin exam: Present: normal color Course Vital Signs 12/24/24 12/24/24 12/24/24 11:17 12:11 12:17 Temperature 98.2 F Pulse Rate 76 73 Respiratory 24 18 Rate Blood Pressure 94/40 84/39 O2 Sat by Pulse 80 L 90 L Oximetry 12/24/24 12/24/24 12/24/24 12:33 12:35 12:49 Temperature Pulse Rate 71 72 Respiratory Rate Blood Pressure 93/43 O2 Sat by Pulse Oximetry 12/24/24 12:51 Temperature Pulse Rate 68 Respiratory 18 Rate Blood Pressure 106/46 O2 Sat by Pulse 95 Oximetry EKG Findings - EKG Results: EKG: interpreted by ERMD (PVCs present. Left axis. Nonspecific intraventricular conduction delay. LVH criteria.), sinus rhythm, normal ST/T Procedures - ABG Interpretation Ph: 7.37 PCO2: 69 PO2: 60 Bicarbonate: 41 Interpretation: other (Chronic hypoxemia) Medical Decision Making - Medical Decision Making Was pt. sent in by a medical professional or institution (, PA, COMMUNICATIONS CONSULTANT, urgent care, hospital, or jail...) When possible be specific @ -No Did you speak to anyone other than the patient for history (EMS, parent, family, police, friend...)? What history was obtained from this source @ -No Did you review nursing and triage notes (agree or disagree)? Why? @ -I reviewed and agree with nursing and triage notes Were old charts reviewed (outside hosp., previous admission, EMS record, old EKG, old radiological studies, urgent care reports/EKG's, jail records)? Report findings @ -Multiple previous admissions and x-rays reviewed Differential Diagnosis (chest pain, altered mental status, abdominal pain women, abdominal pain men, vaginal bleeding, weakness, fever, dyspnea, syncope, headache, dizziness, GI bleed, back pain, seizure, CVA, palpatations, mental health, musculoskeletal)? @ -Differential Dyspnea: Coronary syndrome, arrhythmia, tamponade, asthma, COPD, pulmonary embolism, pneumonia, pneumothorax, pulmonary effusion, anaphylaxis, diabetic ketoacidosis, flailed chest, pulmonary contusion, diaphragmatic rupture, anemia, neuromuscular, this is not meant to be an all-inclusive list. EKG interpreted by me (3pts min.). @ -As above X-rays interpreted by me (1pt min.). @ -Chest x-ray with chronic changes. Right lower lower lobe infiltrate concerns CT interpreted by me (1pt min.). @ -None done U/S interpreted by me (1pt. min.). @ -None done What testing was considered but not performed or refused? (CT, X-rays, U/S, labs)? Why? @ -None What meds were considered but not given or refused? Why? @ -None Did you discuss the management of the patient with other professionals (professionals i.e. , PA, COMMUNICATIONS CONSULTANT, lab, RT, psych nurse, social media community manager, director power, teacher, senior major gifts officer, nurse case manager)? Give summary @ -Case discussed with Dr. Sol who will admit covering Dr. Wheeler. She does request antibiotic and pulmonary consult Was smoking cessation discussed for >3mins.? @ -No Was critical care preformed (if so, how long)? @ -31 minutes critical care time. There is concern for potential sepsis diagnosed at 1330. Blood culture and lactic acid and IV antibiotics have all been ordered. Were there social determinants of health that impacted care today? How? (Homelessness, low income, unemployed, alcoholism, drug addiction, transportation, low edu. Level, literacy, decrease access to med. care, residential, rehab)? @ -No Was there de-escalation of care discussed even if they declined (Discuss DNR or withdrawal of care, Hospice)? DNR status @ -No What co-morbidities impacted this encounter? (DM, HTN, Smoking, COPD, CAD, Cancer, CVA, ARF, Chemo, Hep., AIDS, mental health diagnosis, sleep apnea, morbid obesity)? @ -COPD Was patient admitted / discharged? Hospital course, mention meds given and route, prescriptions, significant lab abnormalities, going to OR and other pertinent info. @ -Patient presents with history of advanced COPD chronic hypoxia and hypercapnia. Patient is concern for infiltrate right lower lobe on x-ray however has some chronic similar changes. Patient has been in the hospital multiple times recently. Patient will be admitted with pulmonary consult. Patient reevaluated and updated Undiagnosed new problem with uncertain prognosis? @ -No Drug Therapy requiring intensive monitoring for toxicity (Heparin, Nitro, Insulin, Cardizem)? @ -No Were any procedures done? @ -No Diagnosis/symptom? @ -COPD Acute, or Chronic, or Acute on Chronic? @ -Acute Uncomplicated (without systemic symptoms) or Complicated (systemic symptoms)? @ -Complicated with concern for potential pneumonia and sepsis Side effects of treatment? @ -No Exacerbation, Progression, or Severe Exacerbation? @ -Severe exacerbation Poses a threat to life or bodily function? How? (Chest pain, [place], IA, pneumonia, PE, COPD, DKA, ARF, appy, cholecystitis, CVA, Diverticulitis, Homicidal, Suicidal, threat to staff... and all critical care pts) @ -Threat to pulmonary function - Lab Data Result diagrams: 12/24/24 12:08 12/24/24 12:08 Lab Results 12/24/24 12/24/24 12/24/24 Range/Units 12:08 12:08 12:08 WBC 30.21 H (4.50-10.00) 10*3/uL RBC 3.61 L (4.10-5.20) 10*6/uL Hgb 11.1 L (12.0-15.0) g/dL Hct 34.4 L (37.2-46.3) % MCV 95.3 (80.0-97.0) fL MCH 30.7 (27.0-32.0) pg MCHC 32.3 (32.0-37.0) g/dL Plt Count 221 (140-440) 10*3/uL MPV 9.2 L (9.5-12.2) fL Immature Gran % (Auto) 1.4 % Neutrophils % 80.1 % Lymphocytes % 9.0 % Monocytes % 8.5 % Eosinophils % 0.7 % Basophils % 0.3 % Immature Gran # 0.41 H (0.00-0.04) 10*3/uL Neutrophils # 24.20 H (1.80-7.70) 10*3/uL Lymphocytes # 2.73 (0.90-5.00) 10*3/uL Monocytes # 2.57 H (0.20-1.00) 10*3/uL Eosinophils # 0.21 (0.04-0.35) 10*3/uL Basophils # 0.09 (0.00-0.10) 10*3/uL Manual Slide Review Performed PT 10.1 (10.0-12.5) sec INR 0.9 (<1.2) APTT 22.2 (22.0-30.0) sec D-Dimer 0.22 (<0.60) mg/L FEU Sample Site ABG pH (7.35-7.45) ABG pCO2 (35-45) mmHg ABG pO2 (83-108) mmHg ABG HCO3 (21-25) mmol/L ABG Total CO2 (19-24) mmol/L ABG O2 Saturation (94-97) % ABG Base Excess mmol/L Duc Test Hemoglobin (11.4-16.0) gm/dL FiO2 % Sodium 128 L (137-145) mmol/L Potassium 4.8 (3.5-5.1) mmol/L Chloride 87 L (98-107) mmol/L Carbon Dioxide 39 H (22-30) mmol/L Anion Gap 2 mmol/L BUN 39 H (7-17) mg/dL Creatinine 0.80 (0.52-1.04) mg/dL Est GFR (CKD-EPI)AfAm 88 (>60 ml/min/1.73 sqM) Est GFR (CKD-EPI)NonAf 77 (>60 ml/min/1.73 sqM) Glucose 101 H (74-99) mg/dL Plasma Lactic Acid Joel (0.7-2.0) mmol/L Calcium 9.6 (8.4-10.2) mg/dL Magnesium 1.9 (1.6-2.3) mg/dL Total Bilirubin 0.5 (0.2-1.3) mg/dL AST 24 (14-36) U/L ALT 28 (4-34) U/L Alkaline Phosphatase 52 (38-126) U/L Troponin I (0.000-0.034) ng/mL NT-Pro-B Natriuret Pep 1240 pg/mL Total Protein 5.1 L (6.3-8.2) g/dL Albumin 3.0 L (3.5-5.0) g/dL Influenza Type A (PCR) (Not Detectd) Influenza Type B (PCR) (Not Detectd) RSV (PCR) (Not Detectd) SARS-CoV-2 (PCR) (Not Detectd) 12/24/24 12/24/24 12/24/24 Range/Units 12:08 12:08 12:08 WBC (4.50-10.00) 10*3/uL RBC (4.10-5.20) 10*6/uL Hgb (12.0-15.0) g/dL Hct (37.2-46.3) % MCV (80.0-97.0) fL MCH (27.0-32.0) pg MCHC (32.0-37.0) g/dL Plt Count (140-440) 10*3/uL MPV (9.5-12.2) fL Immature Gran % (Auto) % Neutrophils % % Lymphocytes % % Monocytes % % Eosinophils % % Basophils % % Immature Gran # (0.00-0.04) 10*3/uL Neutrophils # (1.80-7.70) 10*3/uL Lymphocytes # (0.90-5.00) 10*3/uL Monocytes # (0.20-1.00) 10*3/uL Eosinophils # (0.04-0.35) 10*3/uL Basophils # (0.00-0.10) 10*3/uL Manual Slide Review PT (10.0-12.5) sec INR (<1.2) APTT (22.0-30.0) sec D-Dimer (<0.60) mg/L FEU Sample Site ABG pH (7.35-7.45) ABG pCO2 (35-45) mmHg ABG pO2 (83-108) mmHg ABG HCO3 (21-25) mmol/L ABG Total CO2 (19-24) mmol/L ABG O2 Saturation (94-97) % ABG Base Excess mmol/L Duc Test Hemoglobin (11.4-16.0) gm/dL FiO2 % Sodium (137-145) mmol/L Potassium (3.5-5.1) mmol/L Chloride (98-107) mmol/L Carbon Dioxide (22-30) mmol/L Anion Gap mmol/L BUN (7-17) mg/dL Creatinine (0.52-1.04) mg/dL Est GFR (CKD-EPI)AfAm (>60 ml/min/1.73 sqM) Est GFR (CKD-EPI)NonAf (>60 ml/min/1.73 sqM) Glucose (74-99) mg/dL Plasma Lactic Acid Joel 0.7 (0.7-2.0) mmol/L Calcium (8.4-10.2) mg/dL Magnesium (1.6-2.3) mg/dL Total Bilirubin (0.2-1.3) mg/dL AST (14-36) U/L ALT (4-34) U/L Alkaline Phosphatase (38-126) U/L Troponin I <0.012 (0.000-0.034) ng/mL NT-Pro-B Natriuret Pep pg/mL Total Protein (6.3-8.2) g/dL Albumin (3.5-5.0) g/dL Influenza Type A (PCR) Not Detected (Not Detectd) Influenza Type B (PCR) Not Detected (Not Detectd) RSV (PCR) Not Detected (Not Detectd) SARS-CoV-2 (PCR) Not Detected (Not Detectd) 12/24/24 Range/Units 12:35 WBC (4.50-10.00) 10*3/uL RBC (4.10-5.20) 10*6/uL Hgb (12.0-15.0) g/dL Hct (37.2-46.3) % MCV (80.0-97.0) fL MCH (27.0-32.0) pg MCHC (32.0-37.0) g/dL Plt Count (140-440) 10*3/uL MPV (9.5-12.2) fL Immature Gran % (Auto) % Neutrophils % % Lymphocytes % % Monocytes % % Eosinophils % % Basophils % % Immature Gran # (0.00-0.04) 10*3/uL Neutrophils # (1.80-7.70) 10*3/uL Lymphocytes # (0.90-5.00) 10*3/uL Monocytes # (0.20-1.00) 10*3/uL Eosinophils # (0.04-0.35) 10*3/uL Basophils # (0.00-0.10) 10*3/uL Manual Slide Review PT (10.0-12.5) sec INR (<1.2) APTT (22.0-30.0) sec D-Dimer (<0.60) mg/L FEU Sample Site rrad ABG pH 7.38 (7.35-7.45) ABG pCO2 70 H (35-45) mmHg ABG pO2 60 L (83-108) mmHg ABG HCO3 41 H* (21-25) mmol/L ABG Total CO2 43 H (19-24) mmol/L ABG O2 Saturation 92.7 L (94-97) % ABG Base Excess 13.1 mmol/L Duc Test Yes Hemoglobin 10.4 L (11.4-16.0) gm/dL FiO2 40 % Sodium (137-145) mmol/L Potassium (3.5-5.1) mmol/L Chloride (98-107) mmol/L Carbon Dioxide (22-30) mmol/L Anion Gap mmol/L BUN (7-17) mg/dL Creatinine (0.52-1.04) mg/dL Est GFR (CKD-EPI)AfAm (>60 ml/min/1.73 sqM) Est GFR (CKD-EPI)NonAf (>60 ml/min/1.73 sqM) Glucose (74-99) mg/dL Plasma Lactic Acid Joel (0.7-2.0) mmol/L Calcium (8.4-10.2) mg/dL Magnesium (1.6-2.3) mg/dL Total Bilirubin (0.2-1.3) mg/dL AST (14-36) U/L ALT (4-34) U/L Alkaline Phosphatase (38-126) U/L Troponin I (0.000-0.034) ng/mL NT-Pro-B Natriuret Pep pg/mL Total Protein (6.3-8.2) g/dL Albumin (3.5-5.0) g/dL Influenza Type A (PCR) (Not Detectd) Influenza Type B (PCR) (Not Detectd) RSV (PCR) (Not Detectd) SARS-CoV-2 (PCR) (Not Detectd) Disposition Clinical Impression: COPD (chronic obstructive pulmonary disease) Disposition: ADMITTED IP TO THIS HOSP Condition: Serious Is patient prescribed a controlled substance at d/c from ED?: No Referrals: Andrzej Wheeler MD [Primary Care Provider] - 1-2 days Time of Disposition: 13:37
[2024-12-24 12:11] LABS: Basophils # (A) 0.09 10*3/uL (0.00-0.10); Basophils % (A) 0.3 %; Eosinophils # (A) 0.21 10*3/uL (0.04-0.35); Eosinophils % (A) 0.7 %; HCT 34.4 % (37.2-46.3); HGB 11.1 g/dL (12.0-15.0); Lymphocytes # (A) 2.73 10*3/uL (0.90-5.00); MCH 30.7 pg (27.0-32.0); MCHC 32.3 g/dL (32.0-37.0); MCV 95.3 fL (80.0-97.0); Mean Platelet Volume 9.2 fL (9.5-12.2); Monocytes # (A) 2.57 10*3/uL (0.20-1.00); Monocytes % (A) 8.5 %; Neutrophils % (A) 80.1 %; Platelet Count 221 10*3/uL (140-440); RBC 3.61 10*6/uL (4.10-5.20); RDW 14.4 % (11.5-14.5); WBC 30.21 10*3/uL (4.50-10.00)
[2024-12-24 12:25] LABS: ALT 28 U/L (4-34); AST 24 U/L (14-36); African American GFR (CKD) 88 (>60 ml/min/1.73 sqM); Alkaline Phosphatase 52 U/L (38-126); Anion Gap 2 mmol/L; Blood Urea Nitrogen 39 mg/dL (7-17); Calcium 9.6 mg/dL (8.4-10.2); Carbon Dioxide 39 mmol/L (22-30); Chloride 87 mmol/L (98-107); Glucose 101 mg/dL (74-99); INR 0.9 (<1.2); Magnesium 1.9 mg/dL (1.6-2.3); Non-African American GFR(CKD) 77 (>60 ml/min/1.73 sqM); Partial Thromboplastin Time 22.2 sec (22.0-30.0); Potassium 4.8 mmol/L (3.5-5.1); Prothrombin Time 10.1 sec (10.0-12.5); Sodium 128 mmol/L (137-145); Total Bilirubin 0.5 mg/dL (0.2-1.3); Total Protein 5.1 g/dL (6.3-8.2)
[2024-12-24 12:32] LABS: NT-Pro-B-Type Natriuretic Pept 1240 pg/mL
[2024-12-24] MEDS: IPRATROPIUM-ALBUTEROL 3 ML NEB INHALATION STA (12:35)
[2024-12-24 12:41] LABS: ABG Base Excess 13.1 mmol/L; ABG Oxygen Saturation 92.7 % (94-97); ABG PCO2 70 mmHg (35-45); ABG PH 7.38 (7.35-7.45); ABG PO2 60 mmHg (83-108); ABG TCO2 43 mmol/L (19-24); Allen Test Performed? Yes
[2024-12-24] MEDS: methylPREDNISolone SOD SUCCI 125 MG/2 ML VIAL IV STA (12:41)
[2024-12-24 12:43] LABS: ABG HCO3 41 mmol/L (21-25)
[2024-12-24 12:48] LABS: Influenza A Not Detected (Not Detectd); Influenza B Not Detected (Not Detectd); RSV Not Detected (Not Detectd)
--- NOTE | 2024-12-24 13:15 | XR ---
EXAMINATION TYPE: XR chest 2V DATE OF EXAM: 12/24/2024 1:05 PM COMPARISON: 12/19/2024 CLINICAL INDICATION: Female, 69 years old with history of difficulty breathing, TECHNIQUE: XR chest 2V view(s) obtained. FINDINGS: The heart size is normal. The pulmonary vasculature is normal. Right lower lobe infiltrate is present. Some atelectasis may be midlung.. IMPRESSION: 1. Right lower lobe infiltrate. Correlate for atelectasis and pneumonia. Continued follow-up is recom mended. [facility], , 12/24/2024 1:13 PM
[2024-12-24] MEDS ORDERED: PNEUMONIA PROTOCOL UTILIZED 1 EACH MISC PO PRN (13:32)
[2024-12-24] MEDS: LORazepam 1 MG/0.5 ML VIAL IV STA (14:02)
[2024-12-24] MEDS: AZITHROMYCIN 500 MG in SODIUM CHLORIDE 0.9% 250 ML IVPB STA (14:07)
[2024-12-24] MEDS: ONDANSETRON ODT 4 MG TAB PO STA (14:12)
[2024-12-24] MEDS: IPRATROPIUM-ALBUTEROL 3 ML NEB INHALATION SCH (15:10)
[2024-12-24] MEDS: CEFEPIME 2 GM in SODIUM CHLORIDE 0.9% 100 ML IVPB STA (15:32)
[2024-12-24] MEDS: SODIUM CHLORIDE 0.9% 1,000 ML IV SCH (16:14)
--- NOTE | 2024-12-24 18:28 | P.HPIM ---
History of Present Illness H&P Date: 12/24/24 Chief Complaint: Shortness of breath 69-year-old female, history of hypertension, hypothyroidism, PE, COPD, CHF, spinal stenosis, present to the emergency department with concerns with difficulty breathing. Symptoms have progressed over the past few days. Patient has had increased difficulty with her breathing over the past month or 2. Patient has had several admissions. Previous admissions reviewed. Patient has cough with clear liquidy sputum. No fever. Patient has some mild chest discomfort associated. Patient also has some mild leg swelling associated. Patient has history of COPD and CHF. Blood open reviewed and reveals a WBC of 30.2, hemoglobin 11.1 on platelet count of 221, sodium 128, potassium 4.8, BUN/creatinine of 39/0.80 and blood glucose of 101, lactic acid of 0.7, troponin less than 0.012 ABG reveals pH of 7.38, PCO2 of 70, pO2 of 60 and O2 saturation of 92.7 on 5 L, patient uses 3 L at home Chest x-ray reveals right lower lobe infiltrate Review of Systems REVIEW OF SYSTEMS: CONSTITUTIONAL: No fever, no malaise, no fatigue. HEENT: No recent visual problems or hearing problems. Denied any sore throat. CARDIOVASCULAR: No chest pain, orthopnea, PND, no palpitations, no syncope. PULMONARY: No shortness of breath, no cough, no hemoptysis. GASTROINTESTINAL: No diarrhea, no nausea, no vomiting, no abdominal pain. NEUROLOGICAL: No headaches, no weakness, no numbness. HEMATOLOGICAL: Denies any bleeding or petechiae. GENITOURINARY: Denies any burning micturition, frequency, or urgency. MUSCULOSKELETAL/RHEUMATOLOGICAL: Denies any joint pain, swelling, or any muscle pain. ENDOCRINE: Denies any polyuria or polydipsia. The rest of the 14-point review of systems is negative. Past Medical History Past Medical History: Asthma, Heart Failure, COPD, Fibromyalgia, GERD/Reflux, Hypertension, Osteoarthritis (OA), Pneumonia, Pulmonary Embolus (PE), Skin Disorder, Thyroid Disorder Additional Past Medical History / Comment(s): Spinal Stenosis, Cervical disc disease/stenosis, scoliosis, numbness/tingling L side of face/neck, hx of L hem idiaphragmatic elevation-possibly genetic, recently bronchitis and past bronchitis, electrolyte problem/kidney function being affected, hx of pulmonary emboli, past bilateral lower extremity cellulitis, edema lower extremities, IBS, hemorrhoids, benign colon polyps, sinus problems, UTIs, bacteremia/sepsis, cardiac murmur, past L ankle and L wrist fractures. History of Any Multi-Drug Resistant Organisms: MRSA Date of last positivie culture/infection: 11/27/24 MDRO Source:: sputum, knee Past Surgical History: Bariatric Surgery, Section, Cholecystectomy, Hysterectomy, Tonsillectomy Additional Past Surgical History / Comment(s): EGD, colonoscopies, gastric bypass, surgery for deviated septum, left cataract removal (having laser procedure on that eye 11/24/23) Past Anesthesia/Blood Transfusion Reactions: Previous Problems w/ Anesthesia Additional Past Anesthesia/Blood Transfusion Reaction / Comment(s): itching after hysterectomy, some kind of breathing problem after gastric bypass-not sure what happened Past Psychological History: Anxiety, Bipolar, Depression, Panic Disorder Smoking Status: Current every day smoker Past Alcohol Use History: None Reported Past Drug Use History: Marijuana - Past Family History Mother Family Medical History: Congestive Heart Failure (CHF), Hypertension Father History Unknown: Yes Additional Family Medical History / Comment(s): Father at the age of 45 yrs d/t having had rheumatic fever as a child and heart valve disease. Medications and Allergies Home Medications Medication Instructions Recorded Confirmed Type Montelukast [Singulair] 10 mg PO HS 12/17/13 12/24/24 History Levothyroxine Sodium [Synthroid] 150 mcg PO DAILY 03/29/20 12/24/24 History Famotidine [Pepcid] 20 mg PO BID 09/03/21 12/24/24 History Tamsulosin [Flomax] 0.4 mg PO DAILY 10/26/21 12/24/24 History Ipratropium-Albuterol Nebulize 3 ml INHALATION RT-QID 11/13/22 12/24/24 History [Duoneb 0.5 mg-3 mg/3 ml Soln] Albuterol Inhaler [Ventolin Hfa 2 puff INHALATION RT-QID PRN #1 11/17/22 12/24/24 Rx Inhaler] each clonazePAM [KlonoPIN ODT] 0.25 mg PO HS 12/12/23 12/24/24 History lamoTRIgine [LaMICtal] 100 mg PO BID 03/18/24 12/24/24 History Metoprolol Tartrate [Lopressor] 25 mg PO BID 05/16/24 12/24/24 History Divalproex ER [Depakote ER] 250 mg PO BID #60 tab 05/26/24 12/24/24 Rx Gabapentin 300 mg PO TID 06/01/24 12/24/24 History busPIRone HCL [Buspar] 30 mg PO BID 06/09/24 12/24/24 History Fluticasone/Umeclidin/Vilanter 1 puff INHALATION RT-DAILY 10/17/24 12/24/24 History [Trelegy Ellipta 200-62.5-25] OLANZapine 15 mg PO HS 10/17/24 12/24/24 History Venlafaxine HCl [Effexor XR] 150 mg PO DAILY 10/17/24 12/24/24 History amLODIPine [Norvasc] 5 mg PO BID 30 Days #60 tab 10/21/24 12/24/24 Rx lisinopriL [Zestril] 10 mg PO DAILY 30 Days #30 tab 10/21/24 12/24/24 Rx Nitroglycerin Sl Tabs [Nitrostat] 0.4 mg SUBLINGUAL Q5M PRN #20 tab 11/30/24 12/24/24 Rx Furosemide [Lasix] 20 mg PO DAILY 12/11/24 12/24/24 History HYDROcodone/APAP 5-325MG [[place] 1 tab PO BID PRN 12/11/24 12/24/24 History 5-325] ALPRAZolam [Xanax] 0.25 mg PO BID PRN 5 Days #10 tab 12/13/24 12/24/24 Rx guaiFENesin [Mucinex] 600 mg PO BID 12/24/24 12/24/24 History Allergies Allergy/AdvReac Type Severity Reaction Status Date / Time codeine Allergy Unknown Verified 12/24/24 11:21 Childhood Penicillins Allergy Rash/Hives Verified 12/24/24 11:21 Sulfa (Sulfonamide Allergy Rash/Hives Verified 12/24/24 11:21 Antibiotics) Physical Exam Vitals: Vital Signs Temp Pulse Resp BP Pulse Ox 12/24/24 16:21 75 18 121/58 95 12/24/24 15:21 76 12/24/24 15:18 92 L 12/24/24 15:10 75 12/24/24 14:44 98.4 F 73 16 102/67 91 L 12/24/24 13:55 74 20 119/52 89 L 12/24/24 12:51 68 18 106/46 95 12/24/24 12:49 72 12/24/24 12:35 71 12/24/24 12:33 93/43 12/24/24 12:17 84/39 12/24/24 12:11 73 18 90 L 12/24/24 11:17 98.2 F 76 24 94/40 80 L Intake and Output 12/24/24 12/24/24 12/24/24 06:59 14:59 22:59 Other: Weight 79.379 kg General appearance: alert Head exam: Present: normocephalic Eye exam: Present: normal appearance Neck exam: Present: normal inspection Respiratory exam: Present: wheezes, decreased breath sounds. Absent: respirat ory distress Cardiovascular Exam: Present: regular rate, normal rhythm GI/Abdominal exam: Present: soft. Absent: tenderness Extremities exam: Present: pedal edema. Absent: calf tenderness Neurological exam: Present: alert Psychiatric exam: Present: anxious Skin exam: Present: normal color Results CBC & Chem 7: 12/24/24 12:08 12/24/24 12:08 Labs: Abnormal Lab Results - Last 24 Hours (Table) 12/24/24 12/24/24 12/24/24 Range/Units 12:08 12:08 12:35 WBC 30.21 H (4.50-10.00) 10*3/uL RBC 3.61 L (4.10-5.20) 10*6/uL Hgb 11.1 L (12.0-15.0) g/dL Hct 34.4 L (37.2-46.3) % MPV 9.2 L (9.5-12.2) fL Immature Gran # 0.41 H (0.00-0.04) 10*3/uL Neutrophils # 24.20 H (1.80-7.70) 10*3/uL Monocytes # 2.57 H (0.20-1.00) 10*3/uL ABG pCO2 70 H (35-45) mmHg ABG pO2 60 L (83-108) mmHg ABG HCO3 41 H* (21-25) mmol/L ABG Total CO2 43 H (19-24) mmol/L ABG O2 Saturation 92.7 L (94-97) % Hemoglobin 10.4 L (11.4-16.0) gm/dL Sodium 128 L (137-145) mmol/L Chloride 87 L (98-107) mmol/L Carbon Dioxide 39 H (22-30) mmol/L BUN 39 H (7-17) mg/dL Glucose 101 H (74-99) mg/dL Total Protein 5.1 L (6.3-8.2) g/dL Albumin 3.0 L (3.5-5.0) g/dL Assessment and Plan Assessment: 1. Acute on chronic hypoxic/Hypercapnic respiratory failure -Patient uses O2 at 2 to 3 L per nasal cannula; currently requiring O2 at 5 L with O2 saturation around 90 to 92% - We will wean or titrate as able 2. Pneumonia; chest x-ray reveals right lower lobe infiltrate; WBC is elevated at 30 - Patient will be placed on IV cefepime and azithromycin - Bronchodilator nebulizer treatments 4 times daily and as needed - Will order sputum and blood cultures; Legionella urine antigen - Monitor CBC, CRP and procalcitonin Consult pulmonary service for further recommendations 3. Hyponatremia; sodium at 128; likely related to lung pathology -We will order slow IV fluid hydration with normal saline at rate of 75 cc an hour; monitor electrolytes and make changes as needed 4. Acute exacerbation COPD; Solu-Medrol 40 mg IV every 8 hours; DuoNeb nebulizer treatments 4 times daily and as needed; O2 per nasal cannula with plans to titrate as able; Singulair 10 mg daily 5. Hypertension; amlodipine 5 mg twice daily; metoprolol 25 mg twice daily; lisinopril 10 mg daily 6. Anxiety/depression/bipolar disorder; Klonopin 0.25 mg p.o. nightly, Xanax 0.25 mg twice daily; Depakote 250 mg twice daily; Effexor 150 mg daily; Zyprexa 15 mg p.o. nightly 7. Hypothyroidism; levothyroxine 150 mcg daily
[2024-12-24] MEDS: methylPREDNISolone SOD SUCCI 40 MG/ML 1 ML VIAL IV SCH (19:30)
[2024-12-24] MEDS: CEFEPIME 2 GM in SODIUM CHLORIDE 0.9% 100 ML IVPB SCH (21:14)
[2024-12-24] MEDS: busPIRone HCl 10 MG TAB PO SCH (21:14)
[2024-12-24] MEDS: METOPROLOL TARTRATE 25 MG TAB PO SCH (21:14)
[2024-12-24] MEDS: amLODIPine 5 MG TAB PO SCH (21:14)
[2024-12-24] MEDS: guaiFENesin 600 MG TABLET.ER PO SCH (21:14)
[2024-12-24] MEDS: clonazePAM 0.5 MG TAB PO SCH (21:14)
[2024-12-24] MEDS: MONTELUKAST 10 MG TAB PO SCH (21:14)
[2024-12-24] MEDS: FAMOTIDINE 20 MG TAB PO SCH (21:14)
[2024-12-24] MEDS: lamoTRIgine 100 MG TAB PO SCH (21:14)
[2024-12-24] MEDS: GABAPENTIN 300 MG CAP PO SCH (21:14)
[2024-12-24] MEDS: OLANZapine 7.5 MG TAB PO SCH (21:42)
[2024-12-24] MEDS: HYDROcodone/APAP 5-325MG 1 EACH TAB PO PRN (21:42)
[2024-12-24] MEDS: DIVALPROEX ER 250 MG TAB.ER.24H PO SCH (21:43)
--- NOTE | 2024-12-24 22:50 | P.CNPUL ---
History of Present Illness Consult date: 12/24/24 Reason for consult: dyspnea History of present illness: This is a 69-year-old female with known history of COPD, normally sees Dr. Brannon for her COPD, patient continues to smoke in spite of her severe COPD. She was here in the hospital 2 weeks ago, and she was treated for acute exacerbation of COPD. And she was discharged home finished prednisone burst and taper patient is O2 dependent, on 3 L nasal cannula, she has ongoing history of tobacco dependence, heart failure, history of pulmonary embolism, hypothyroidism, fibromyalgia, chronic back pain, and previous history of MRSA tracheobronchitis, patient is maintained at home on DuoNeb, albuterol, and Trelegy. Baseline FEV1 is about 64%, chest x-ray on this admission showed chronic changes, and bibasilar atelectasis.The patient was recently discharged home on 12/20/2024 after being treated for an acute COPD exacerbation. The sputum sample that was collected on 12/24/2024 was positive for Pseudomonas aeruginosa. The patient came back to the emergency department today having difficulties in breathing. Her blood work shows a white cell count of 30.2 with a hemoglobin 11.1 and the platelet count of 221. Sodium is at 128, bicarb is at 39 with a BUN of 39 and creatinine of 0.8. Troponins are negative. proBNP level is 1240. Viral screen was negative Blood gas was done in the ED and the patient was found to have a pH of 7.38 with a pCO2 of 70 FiO2 of 60 and this was done on 40 Suboxone by nasal cannula. Accordingly, the patient was started on IV cefepime and Zithromax was also added to the regimen. She is currently on IV fluids. She is on DuoNeb nebulizer treatments [id number]. Chest x-ray was reviewed and compared to the earlier chest x-rays from 12/19/2024. The patient has chronic atelectatic changes in lung bases. There are some further opacification of the right lung base and underlying right lower lobe pneumonia cannot be completely excluded. Noted, the patient has some chronic scarring and atelectatic changes lung bases bilaterally. Review of Systems CONSTITUTIONAL: Denies any recent significant weight loss or weight gain. EYES: Denies change in vision. EARS, NOSE, MOUTH, THROAT: Denies headaches, denies sore throat. CARDIOVASCULAR: Denies chest pain, palpitations or syncopal episodes. RESPIRATORY: Positive for shortness of breath, cough, congestion no hemoptysis. GASTROINTESTINAL: Denies change in appetite, denies abdominal pain GENITOURINARY: Denies hematuria, denies infections. MUSKULOSKELETAL: Denies pain, denies swelling. INTEGUMENTARY: Denies rash, denies eczema. NEUROLOGICAL: Denies recent memory loss, no recent seizure activity. PSYCHIATRIC: Positive for anxiety. HEMATOLOGIC/LYMPHATIC: Denies anemia, denies enlarged lymph nodes. 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 History of Any Multi-Drug Resistant Organisms: MRSA Date of last positivie culture/infection: 11/27/24 MDRO Source:: sputum, knee Past Surgical History: Bariatric Surgery, Section, Cholecystectomy, Hysterectomy, Tonsillectomy Additional Past Surgical History / Comment(s): EGD, colonoscopies, gastric bypass, surgery for deviated septum, left cataract removal (having laser procedure on that eye 11/24/23) Past Anesthesia/Blood Transfusion Reactions: Previous Problems w/ Anesthesia Additional Past Anesthesia/Blood Transfusion Reaction / Comment(s): itching after hysterectomy, some kind of breathing problem after gastric bypass-not sure what happened Past Psychological History: Anxiety, Bipolar, Depression, Panic Disorder Smoking Status: Current every day smoker Past Alcohol Use History: None Reported Past Drug Use History: Marijuana - Past Family History Mother Family Medical History: Congestive Heart Failure (CHF), Hypertension Father History Unknown: Yes Additional Family Medical History / Comment(s): Father at the age of 45 yrs d/t having had rheumatic fever as a child and heart valve disease. Medications and Allergies Home Medications Medication Instructions Recorded Confirmed Type Montelukast [Singulair] 10 mg PO HS 12/17/13 12/24/24 History Levothyroxine Sodium [Synthroid] 150 mcg PO DAILY 03/29/20 12/24/24 History Famotidine [Pepcid] 20 mg PO BID 09/03/21 12/24/24 History Tamsulosin [Flomax] 0.4 mg PO DAILY 10/26/21 12/24/24 History Ipratropium-Albuterol Nebulize 3 ml INHALATION RT-QID 11/13/22 12/24/24 History [Duoneb 0.5 mg-3 mg/3 ml Soln] Albuterol Inhaler [Ventolin Hfa 2 puff INHALATION RT-QID PRN #1 11/17/22 12/24/24 Rx Inhaler] each clonazePAM [KlonoPIN ODT] 0.25 mg PO HS 12/12/23 12/24/24 History lamoTRIgine [LaMICtal] 100 mg PO BID 03/18/24 12/24/24 History Metoprolol Tartrate [Lopressor] 25 mg PO BID 05/16/24 12/24/24 History Divalproex ER [Depakote ER] 250 mg PO BID #60 tab 05/26/24 12/24/24 Rx Gabapentin 300 mg PO TID 06/01/24 12/24/24 History busPIRone HCL [Buspar] 30 mg PO BID 06/09/24 12/24/24 History Fluticasone/Umeclidin/Vilanter 1 puff INHALATION RT-DAILY 10/17/24 12/24/24 History [Trelegy Ellipta 200-62.5-25] OLANZapine 15 mg PO HS 10/17/24 12/24/24 History Venlafaxine HCl [Effexor XR] 150 mg PO DAILY 10/17/24 12/24/24 History amLODIPine [Norvasc] 5 mg PO BID 30 Days #60 tab 10/21/24 12/24/24 Rx lisinopriL [Zestril] 10 mg PO DAILY 30 Days #30 tab 10/21/24 12/24/24 Rx Nitroglycerin Sl Tabs [Nitrostat] 0.4 mg SUBLINGUAL Q5M PRN #20 tab 11/30/24 12/24/24 Rx Furosemide [Lasix] 20 mg PO DAILY 12/11/24 12/24/24 History HYDROcodone/APAP 5-325MG [[place] 1 tab PO BID PRN 12/11/24 12/24/24 History 5-325] ALPRAZolam [Xanax] 0.25 mg PO BID PRN 5 Days #10 tab 12/13/24 12/24/24 Rx guaiFENesin [Mucinex] 600 mg PO BID 12/24/24 12/24/24 History Allergies Allergy/AdvReac Type Severity Reaction Status Date / Time codeine Allergy Unknown Verified 12/24/24 11:21 Childhood Penicillins Allergy Rash/Hives Verified 12/24/24 11:21 Sulfa (Sulfonamide Allergy Rash/Hives Verified 12/24/24 11:21 Antibiotics) Physical Exam Vitals: Vital Signs Temp Pulse Resp BP Pulse Ox 12/24/24 14:44 98.4 F 73 16 102/67 91 L 12/24/24 13:55 74 20 119/52 89 L 12/24/24 12:51 68 18 106/46 95 12/24/24 12:49 72 12/24/24 12:35 71 12/24/24 12:33 93/43 12/24/24 12:17 84/39 12/24/24 12:11 73 18 90 L 12/24/24 11:17 98.2 F 76 24 94/40 80 L Intake and Output 12/24/24 12/24/24 12/24/24 06:59 14:59 22:59 Other: Weight 79.379 kg GENERAL EXAM: Anxious and tearful, 69-year-old female, on 4 L nasal cannula, not in any respiratory distress. HEAD: Normocephalic. EYES: Normal reaction of pupils, equal size. NOSE: Clear with pink turbinates. THROAT: No erythema or exudates. NECK: No masses, no JVD. CHEST: No chest wall deformity. LUNGS: Equal air entry with scattered rhonchi bilaterally. CVS: S1 and S2 normal with no audible murmur, regular rhythm. ABDOMEN: No hepatosplenomegaly, normal bowel sounds, no guarding or rigidity. SPINE: No scoliosis or deformity SKIN: No rashes CENTRAL NERVOUS SYSTEM: No focal deficits, tone is normal in all 4 extremities. EXTREMITIES: There is no peripheral edema. No clubbing, no cyanosis. Peripheral pulses are intact. Results - Laboratory Findings CBC and BMP: 12/24/24 12:08 12/24/24 12:08 ABG ABG pH 7.38 (7.35-7.45) 12/24/24 12:35 ABG pCO2 70 mmHg (35-45) H 12/24/24 12:35 ABG pO2 60 mmHg (83-108) L 12/24/24 12:35 ABG O2 Saturation 92.7 % (94-97) L 12/24/24 12:35 PT/INR, D-dimer PT 10.1 sec (10.0-12.5) 12/24/24 12:08 INR 0.9 (<1.2) 12/24/24 12:08 D-Dimer 0.22 mg/L FEU (<0.60) 12/24/24 12:08 Abnormal lab findings: Abnormal Labs 12/24/24 12/24/24 12/24/24 12:08 12:08 12:35 WBC 30.21 H RBC 3.61 L Hgb 11.1 L Hct 34.4 L MPV 9.2 L Immature Gran # 0.41 H Neutrophils # 24.20 H Monocytes # 2.57 H ABG pCO2 70 H ABG pO2 60 L ABG HCO3 41 H* ABG Total CO2 43 H ABG O2 Saturation 92.7 L Hemoglobin 10.4 L Sodium 128 L Chloride 87 L Carbon Dioxide 39 H BUN 39 H Glucose 101 H Total Protein 5.1 L Albumin 3.0 L - Diagnostic Findings Chest x-ray: image reviewed Assessment and Plan Plan: Acute COPD exacerbation, readmission after being discharged on 12/20/2024 and there is suspicion for right lower lobe pneumonia. Noted the previous sputum sample is positive for Pseudomonas aeruginosa collected on 12/19/2024. Acute leukocytosis likely secondary to above Acute on chronic shortness of breath Chronic left hemidiaphragmatic elevation Acute on chronic dyspnea, secondary to a combination of abo in addition to her chronic hypercapnic respiratory failure, well compensated on today's blood gas Sputum sample from 11/12/2024 positive for MRSA and Corynebacterium stratum; again positive for MRSA on 11/27/2024 Chronic hypoxemic respiratory failure, maintained on 3 L of oxygen by nasal cannula Chronic hyponatremia, appears euvolemic, sodium 128 Hypothyroidism Hypertension Chronic ongoing tobacco dependence History of mediastinal lymphadenopathy History of marijuana use Chronic lumbar back pain with severe scoliosis with severe degenerative disc disease, disc herniation of L3-S1 with cervical canal stenosis History of gastric bypass surgery Bipolar disorder with anxiety Fibromyalgia and chronic pain Plan: Oxygen 4 L/min nasal cannula IV cefepime and Zithromax combination DuoNeb device remains on the clock IV Solu-Medrol IV fluids and monitor sodium levels Home medication to be resumed Smoking cessation counseling performed, nicotine replacement offered We will continue to follow
[2024-12-25] MEDS: IPRATROPIUM-ALBUTEROL 3 ML NEB INHALATION PRN (04:09)
[2024-12-25] MEDS: LEVOTHYROXINE 75 MCG TAB PO SCH (06:35)
[2024-12-25 07:31] LABS: Basophils # (A) 0.08 10*3/uL (0.00-0.10); Basophils % (A) 0.3 %; HCT 32.8 % (37.2-46.3); HGB 10.5 g/dL (12.0-15.0); Lymphocytes # (A) 0.77 10*3/uL (0.90-5.00); Lymphocytes % (A) 2.8 %; MCH 30.3 pg (27.0-32.0); MCV 94.8 fL (80.0-97.0); Mean Platelet Volume 10.1 fL (9.5-12.2); Monocytes # (A) 0.32 10*3/uL (0.20-1.00); Monocytes % (A) 1.2 %; Neutrophils # (A) 25.76 10*3/uL (1.80-7.70); Neutrophils % (A) 94.5 %; Platelet Count 235 10*3/uL (140-440); RBC 3.46 10*6/uL (4.10-5.20); RDW 14.4 % (11.5-14.5); WBC 27.25 10*3/uL (4.50-10.00)
--- NOTE | 2024-12-25 07:40 | XR ---
EXAMINATION TYPE: XR chest 1V portable DATE OF EXAM: 12/25/2024 6:45 AM COMPARISON: Multiple radiographs, with the most recent on 12/24/2024 TECHNIQUE: XR chest 1V portable Portable AP radiograph of the chest. CLINICAL INDICATION:Female, 69 years old with history of pneumonia; FINDINGS: Patient is rotated which limits evaluation. Lungs/Pleura: No pneumothorax. Similar linear atelectasis/scarring within the right mid and lower claudette g. Small left pleural effusion with left basilar airspace opacities. Pulmonary vascularity: Unremarkable. Heart/mediastinum: Cardiomediastinal silhouette is prominent in size. Atherosclerotic calcifications are seen in the aorta. Musculoskeletal: No acute osseous pathology. IMPRESSION: 1. Improvement in right basilar airspace opacity with persistent linear scarring and/or atelectasis. 2. Small left pleural effusion with associated atelectasis and/or infiltrate. [facility], , 12/25/2024 7:38 AM
[2024-12-25 07:46] LABS: African American GFR (CKD) >90 (>60 ml/min/1.73 sqM); Anion Gap 2 mmol/L; Blood Urea Nitrogen 33 mg/dL (7-17); Calcium 9.2 mg/dL (8.4-10.2); Carbon Dioxide 37 mmol/L (22-30); Chloride 90 mmol/L (98-107); Glucose 162 mg/dL (74-99); Non-African American GFR(CKD) >90 (>60 ml/min/1.73 sqM); Sodium 129 mmol/L (137-145)
[2024-12-25] MEDS: lisinopriL 10 MG TAB PO SCH (08:22)
[2024-12-25] MEDS: TAMSULOSIN 0.4 MG CAP.ER.24H PO SCH (08:22)
[2024-12-25] MEDS: VENLAFAXINE HCL ER 150 MG CAP PO SCH (08:22)
[2024-12-25] MEDS: FUROSEMIDE 20 MG TAB PO SCH (08:22)
[2024-12-25] MEDS: AZITHROMYCIN 500 MG in SODIUM CHLORIDE 0.9% 250 ML IVPB SCH (13:45)
[2024-12-25] MEDS: ALPRAZolam 0.25 MG TAB PO PRN (14:06)
--- NOTE | 2024-12-25 16:33 | P.PN ---
Subjective Progress Note Date: 12/25/24 Principal diagnosis: Acute exacerbation of COPD This is a 69-year-old female with known history of COPD, normally sees Dr. Brannon for her COPD, patient continues to smoke in spite of her severe COPD. She was here in the hospital 2 weeks ago, and she was treated for acute exacerbation of COPD. And she was discharged home finished prednisone burst and taper patient is O2 dependent, on 3 L nasal cannula, she has ongoing history of tobacco dependence, heart failure, history of pulmonary embolism, hypothyroidism, fibromyalgia, chronic back pain, and previous history of MRSA tracheobronchitis, patient is maintained at home on DuoNeb, albuterol, and Trelegy. Baseline FEV1 is about 64%, chest x-ray on this admission showed chronic changes, and bibasilar atelectasis.The patient was recently discharged home on 12/20/2024 after being treated for an acute COPD exacerbation. The sputum sample that was collected on 12/24/2024 was positive for Pseudomonas aeruginosa. The patient came back to the emergency department today having difficulties in breathing. Her blood work shows a white cell count of 30.2 with a hemoglobin 11.1 and the platelet count of 221. Sodium is at 128, bicarb is at 39 with a BUN of 39 and creatinine of 0.8. Troponins are negative. proBNP level is 1240. Viral screen was negative Blood gas was done in the ED and the patient was found to have a pH of 7.38 with a pCO2 of 70 FiO2 of 60 and this was done on 40 Suboxone by nasal cannula. Accordingly, the patient was started on IV cefepime and Zithromax was also added to the regimen. She is currently on IV fluids. She is on DuoNeb nebulizer treatments [id number]. Chest x-ray was reviewed and compared to the earlier chest x-rays from 12/19/2024. The patient has chronic atelectatic changes in lung bases. There are some further opacification of the right lung base and underlying right lower lobe pneumonia cannot be completely excluded. Noted, the patient has some chronic scarring and atelectatic changes lung bases bilaterally. Seen today on 12/25/2024, patient is feeling a bit better, continues to have intermittent cough and wheezing, patient is on bronchodilators, she is also on cefepime and Zithromax, she is on DuoNeb, chest x-ray today showed improvement in her right basilar airspace disease with persistent linear scarring and/or atelectasis there is also a small left pleural effusion associated atelectasis patient has leukocytosis but improving WC is 27.2 hemoglobin is 10.5 ABG on admission showed a pO2 of 60 pCO2 70 pH of 7.38 patient is compensating quite well for her respiratory acidosis. Viral 4 Plex screen was negative Objective - Vital Signs Vital signs: Vital Signs Temp 98.2 F 12/25/24 15:04 Pulse 75 12/25/24 16:22 Resp 16 12/25/24 15:04 BP 112/53 12/25/24 15:04 Pulse Ox 95 12/25/24 15:04 FiO2 Intake & Output 12/24/24 12/25/24 12/25/24 18:59 06:59 18:59 Intake Total 610 Balance 610 Weight 79.379 kg 85.5 kg Intake: IV 10 Invasive Line 1 10 Oral 600 Other: Voiding Method Bedside Commode # Voids 2 2 - Exam GENERAL EXAM: Reveals 69-year-old female in no distress on 3L nasal cannula, O2 saturation is 95% HEAD: Normocephalic. EYES: Normal reaction of pupils, equal size. NOSE: Clear with pink turbinates. THROAT: No erythema or exudates. NECK: No masses, no JVD. CHEST: No chest wall deformity. LUNGS: Scattered rhonchi more so on forced expiratory maneuver and some wheezing CVS: S1 and S2 normal with no audible murmur, regular rhythm. ABDOMEN: No hepatosplenomegaly, normal bowel sounds, no guarding or rigidity. SKIN: No rashes CENTRAL NERVOUS SYSTEM: Alert oriented x 3 no focal deficit EXTREMITIES: no clubbing edema or cyanosis - Labs CBC & Chem 7: 12/25/24 06:11 12/25/24 06:11 Labs: Abnormal Lab Results - Last 24 Hours (Table) 12/25/24 12/25/24 Range/Units 06:11 06:11 WBC 27.25 H (4.50-10.00) 10*3/uL RBC 3.46 L (4.10-5.20) 10*6/uL Hgb 10.5 L (12.0-15.0) g/dL Hct 32.8 L (37.2-46.3) % Immature Gran # 0.32 H (0.00-0.04) 10*3/uL Neutrophils # 25.76 H (1.80-7.70) 10*3/uL Lymphocytes # 0.77 L (0.90-5.00) 10*3/uL Eosinophils # 0.00 L (0.04-0.35) 10*3/uL Sodium 129 L (137-145) mmol/L Chloride 90 L (98-107) mmol/L Carbon Dioxide 37 H (22-30) mmol/L BUN 33 H (7-17) mg/dL Creatinine 0.50 L (0.52-1.04) mg/dL Glucose 162 H (74-99) mg/dL Assessment and Plan Assessment: Impression: Acute on chronic hypoxic, and hypercapnic respiratory failure Acute COPD exacerbation Chronic shortness of breath Left hemidiaphragm elevation possible paralysis Chronic hyponatremia with euvolemia Hypothyroidism Hypertension History of mediastinal lymphadenopathy History of gastric bypass surgery Bipolar disorder Fibromyalgia and chronic pain syndrome Chronic hypoxic respiratory failure Recommendation: Continue empiric antibiotics including cefepime and Zithromax Continue oxygen and titrate accordingly Continue bronchodilators and IV Solu-Medrol Resume home medications Counseled regarding smoking cessation Will continue to follow Time with Patient: Less than 30
[2024-12-25] MEDS: ALPRAZolam 0.5 MG TAB PO PRN (22:07)
--- NOTE | 2024-12-26 04:54 | P.PN ---
Subjective Progress Note Date: 12/25/24 69-year-old female, history of hypertension, hypothyroidism, PE, COPD, CHF, spinal stenosis, present to the emergency department with concerns with difficulty breathing. Symptoms have progressed over the past few days. Patient has had increased difficulty with her breathing over the past month or 2. Chetan mcintosh has had several admissions. Previous admissions reviewed. Patient has cough with clear liquidy sputum. No fever. Patient has some mild chest discomfort associated. Patient also has some mild leg swelling associated. Patient has history of COPD and CHF. Blood open reviewed and reveals a WBC of 30.2, hemoglobin 11.1 on platelet count of 221, sodium 128, potassium 4.8, BUN/creatinine of 39/0.80 and blood glucose of 101, lactic acid of 0.7, troponin less than 0.012 ABG reveals pH of 7.38, PCO2 of 70, pO2 of 60 and O2 saturation of 92.7 on 5 L, patient uses 3 L at home Chest x-ray reveals right lower lobe infiltrate 12/25/2024 Patient is seen in follow-up today being followed by pulmonary maintained on IV steroids along with antibiotics infiltrate noted on imaging and will continue f or now. Patient is reporting significant anxiety in the increase and asked as needed. Patient reports she feels slightly improved from yesterday and is maintained on her chronic 3 L which she wears outpatient. Patient reports to generalized weakness and continues to fall frequently at home. Patient has been evaluated by physical therapy and previous admissions and has been adamant she is returning home and wanted go to rehab. Patient has had home care in the outpatient setting. White count is trending down and will continue to monitor closely and follow-up on repeat labs. Encouraged increase activity as tolerated fluting sitting up out of the bed more frequently. Review of systems: Constitutional: No reports of fatigue, fever, or chills Cardiovascular: No reports of chest pain or palpitations Respiratory: reports of continued shortness of breath with minimal exertion and continued occasional cough GI: No reports of nausea, vomiting, or diarrhea : No reports of dysuria or retention Neurovascular: reports of generalized weakness Physical exam: Gen: This is a 69-year-old female who is awake, alert and oriented x 3, well- developed, chronically ill-appearing, elderly, obese HEENT: Head is atraumatic, normocephalic. Pupils equal, round. Sclerae is anicteric. NECK: Supple. No JVD. No lymphadenopathy. No thyromegaly. LUNGS: Diminished breath sounds bilaterally with some forced expiratory wheezes and coarse rhonchi noted. No intercostal retractions. HEART: S1, S2 are muffled ABDOMEN: Soft. Obese. Bowel sounds are present. No masses. No tenderness. EXTREMITIES: No pedal edema. No calf tenderness. NEUROLOGICAL: Patient is awake, alert and oriented x3. Cranial nerves 2 through 12 are grossly intact. Diffusely weak All medications have been reviewed Assessment: - Acute on chronic hypoxic/Hypercapnic respiratory failure and chronically wears 3 L outpatient -Pneumonia, present on admission; chest x-ray reveals right lower lobe infiltrate; WBC is elevated at 30 -Hyponatremia; sodium at 128; likely related to lung pathology -Acute exacerbation COPD -Hypertension -Anxiety/depression/bipolar disorder -Hypothyroidism - Obesity with a BMI of 36.8 -Continued ongoing nicotine dependence -THC use -GI prophylaxis -DVT prophylaxis -Full code Plan: Patient will be continued on IV steroids and breathing treatments [id number] with pulmonary following. Patient is chronically wearing 3 L outpatient and tolerating although does report continued cough and shortness of breath with minimal exertion Patient to continue on antibiotics at this time and will continue to monitor white count Encouraged increase activity as tolerated Follow-up on repeat labs Will discuss with pulmonary regarding possible discharge planning in the next 24 to 48 hours Due to multiple complex medical issues, overall prognosis is guarded. Patient is high risk for readmissions and has had multiple hospitalizations and ER visits secondary to COPD The impression and plan of care has been dictated by Audrey Curtis, Nurse Practitioner as directed. Dr. Isaias MD I have performed a history and examination and MDM of this patient, discussed the same with the dictator, and agree with the dictator's assessment and plan as written ,documented as a scribe. Based on total visit time, I have performed more than 50% of the visit. Objective - Vital Signs Vital signs: Vital Signs Temp 98.2 F 12/25/24 15:04 Pulse 73 12/25/24 16:32 Resp 16 12/25/24 15:04 BP 112/53 12/25/24 15:04 Pulse Ox 95 12/25/24 15:04 FiO2 Intake & Output 12/24/24 12/25/24 12/25/24 18:59 06:59 18:59 Intake Total 610 Balance 610 Weight 79.379 kg 85.5 kg Intake: IV 10 Invasive Line 1 10 Oral 600 Other: Voiding Method Bedside Commode # Voids 2 2 - Labs CBC & Chem 7: 12/25/24 06:11 12/25/24 06:11 Labs: Abnormal Lab Results - Last 24 Hours (Table) 12/25/24 12/25/24 Range/Units 06:11 06:11 WBC 27.25 H (4.50-10.00) 10*3/uL RBC 3.46 L (4.10-5.20) 10*6/uL Hgb 10.5 L (12.0-15.0) g/dL Hct 32.8 L (37.2-46.3) % Immature Gran # 0.32 H (0.00-0.04) 10*3/uL Neutrophils # 25.76 H (1.80-7.70) 10*3/uL Lymphocytes # 0.77 L (0.90-5.00) 10*3/uL Eosinophils # 0.00 L (0.04-0.35) 10*3/uL Sodium 129 L (137-145) mmol/L Chloride 90 L (98-107) mmol/L Carbon Dioxide 37 H (22-30) mmol/L BUN 33 H (7-17) mg/dL Creatinine 0.50 L (0.52-1.04) mg/dL Glucose 162 H (74-99) mg/dL
--- NOTE | 2024-12-26 13:15 | P.PN ---
Subjective Progress Note Date: 12/26/24 Principal diagnosis: Acute exacerbation of COPD This is a 69-year-old female with known history of COPD, normally sees Dr. Brannon for her COPD, patient continues to smoke in spite of her severe COPD. She was here in the hospital 2 weeks ago, and she was treated for acute exacerbation of COPD. And she was discharged home finished prednisone burst and taper patient is O2 dependent, on 3 L nasal cannula, she has ongoing history of tobacco dependence, heart failure, history of pulmonary embolism, hypothyroidism, fibromyalgia, chronic back pain, and previous history of MRSA tracheobronchitis, patient is maintained at home on DuoNeb, albuterol, and Trelegy. Baseline FEV1 is about 64%, chest x-ray on this admission showed chronic changes, and bibasilar atelectasis.The patient was recently discharged home on 12/20/2024 after being treated for an acute COPD exacerbation. The sputum sample that was collected on 12/24/2024 was positive for Pseudomonas aeruginosa. The patient came back to the emergency department today having difficulties in breathing. Her blood work shows a white cell count of 30.2 with a hemoglobin 11.1 and the platelet count of 221. Sodium is at 128, bicarb is at 39 with a BUN of 39 and creatinine of 0.8. Troponins are negative. proBNP level is 1240. Viral screen was negative Blood gas was done in the ED and the patient was found to have a pH of 7.38 with a pCO2 of 70 FiO2 of 60 and this was done on 40 Suboxone by nasal cannula. Accordingly, the patient was started on IV cefepime and Zithromax was also added to the regimen. She is currently on IV fluids. She is on DuoNeb nebulizer treatments [id number]. Chest x-ray was reviewed and compared to the earlier chest x-rays from 12/19/2024. The patient has chronic atelectatic changes in lung bases. There are some further opacification of the right lung base and underlying right lower lobe pneumonia cannot be completely excluded. Noted, the patient has some chronic scarring and atelectatic changes lung bases bilaterally. Seen today on 12/25/2024, patient is feeling a bit better, continues to have intermittent cough and wheezing, patient is on bronchodilators, she is also on cefepime and Zithromax, she is on DuoNeb, chest x-ray today showed improvement in her right basilar airspace disease with persistent linear scarring and/or atelectasis there is also a small left pleural effusion associated atelectasis patient has leukocytosis but improving WC is 27.2 hemoglobin is 10.5 ABG on admission showed a pO2 of 60 pCO2 70 pH of 7.38 patient is compensating quite well for her respiratory acidosis. Viral 4 Plex screen was negative Seen today on 12/26/2024, patient is feeling better, less cough less wheezing less shortness of breath, patient remains on antibiotics, remains on bronchodilators and steroids, she can be considered for discharge if cleared by other consultants on the case. Definite improvement compared to yesterday and the day before. However the patient continues to have leukocytosis based on her CBC yesterday her white count was as high as 27.25, basic metabolic profile is unremarkable. Bicarb is 37. Urine Legionella antigen is negative. Objective - Vital Signs Vital signs: Vital Signs Temp 97.9 F 12/26/24 11:45 Pulse 72 12/26/24 11:45 Resp 18 12/26/24 11:45 BP 139/63 12/26/24 11:45 Pulse Ox 95 12/26/24 11:45 FiO2 Intake & Output 12/25/24 12/26/24 12/26/24 18:59 06:59 18:59 Intake Total 970 358 Output Total 300 1000 300 Balance 670 -1000 58 Weight 84.5 kg Intake: IV 10 Invasive Line 1 10 Oral 960 358 Output: Urine 300 1000 300 Other: Voiding Method Bedside Commode Bedside Commode # Voids 2 - Exam GENERAL EXAM: Reveals 69-year-old female in no distress on 3L nasal cannula, O2 saturation is 95% HEAD: Normocephalic. EYES: Normal reaction of pupils, equal size. NOSE: Clear with pink turbinates. THROAT: No erythema or exudates. NECK: No masses, no JVD. CHEST: No chest wall deformity. LUNGS: Minimal rhonchi and wheezing noted bilaterally on forced expiratory maneuver CVS: S1 and S2 normal with no audible murmur, regular rhythm. ABDOMEN: No hepatosplenomegaly, normal bowel sounds, no guarding or rigidity. SKIN: No rashes CENTRAL NERVOUS SYSTEM: Alert oriented x 3 no focal deficit EXTREMITIES: no clubbing edema or cyanosis - Labs CBC & Chem 7: 12/25/24 06:11 12/25/24 06:11 Labs: Microbiology - Last 24 Hours (Table) 12/25/24 16:25 Gram Stain - Preliminary Sputum 12/24/24 12:08 Blood Culture - Preliminary Blood Assessment and Plan Assessment: Impression: Acute on chronic hypoxic, and hypercapnic respiratory failure Acute COPD exacerbation Chronic shortness of breath Left hemidiaphragm elevation possible paralysis Chronic hyponatremia with euvolemia Hypothyroidism Hypertension History of mediastinal lymphadenopathy History of gastric bypass surgery Bipolar disorder Fibromyalgia and chronic pain syndrome Chronic hypoxic respiratory failure Recommendation: Continue empiric antibiotics including cefepime and Zithromax Continue oxygen and titrate accordingly Continue bronchodilators and IV Solu-Medrol Resume home medications Counseled regarding smoking cessation Consider discharge planning in the next 24 hours Repeat CBC and chest x-ray in a.m. Will continue to follow Time with Patient: Less than 30
--- NOTE | 2024-12-27 04:55 | P.PN ---
Subjective Progress Note Date: 12/26/24 69-year-old female, history of hypertension, hypothyroidism, PE, COPD, CHF, spinal stenosis, present to the emergency department with concerns with difficulty breathing. Symptoms have progressed over the past few days. Patient has had increased difficulty with her breathing over the past month or 2. Chetan mcintosh has had several admissions. Previous admissions reviewed. Patient has cough with clear liquidy sputum. No fever. Patient has some mild chest discomfort associated. Patient also has some mild leg swelling associated. Patient has history of COPD and CHF. Blood open reviewed and reveals a WBC of 30.2, hemoglobin 11.1 on platelet count of 221, sodium 128, potassium 4.8, BUN/creatinine of 39/0.80 and blood glucose of 101, lactic acid of 0.7, troponin less than 0.012 ABG reveals pH of 7.38, PCO2 of 70, pO2 of 60 and O2 saturation of 92.7 on 5 L, patient uses 3 L at home Chest x-ray reveals right lower lobe infiltrate 12/25/2024 Patient is seen in follow-up today being followed by pulmonary maintained on IV steroids along with antibiotics infiltrate noted on imaging and will continue f or now. Patient is reporting significant anxiety in the increase and asked as needed. Patient reports she feels slightly improved from yesterday and is maintained on her chronic 3 L which she wears outpatient. Patient reports to generalized weakness and continues to fall frequently at home. Patient has been evaluated by physical therapy and previous admissions and has been adamant she is returning home and wanted go to rehab. Patient has had home care in the outpatient setting. White count is trending down and will continue to monitor closely and follow-up on repeat labs. Encouraged increase activity as tolerated fluting sitting up out of the bed more frequently. 12/26/2024 Patient is seen in follow-up today reporting she is significantly more short of breath today although on exam was found her to be resting comfortably and easily arousable in no acute distress maintained on her chronic 3 L that she wears outpatient. Patient was scheduled for discharge although reported she was gasping for air and not ready for discharge. Per pulmonary, recommend monitoring overnight with plans on discharging home tomorrow. Patient's white count is elevated and trending down. Patient is continued on IV steroids along with DuoNeb treatments and will continue. Encourage increase activity as tolerated with getting up out of the bed more frequently and sitting in the chair with all meals. Patient reports to feeling weak and has been falling more frequently at home. Review of systems: Constitutional: No reports of fatigue, fever, or chills Cardiovascular: No reports of chest pain or palpitations Respiratory: reports of continued shortness of breath with minimal exertion and continued occasional cough GI: No reports of nausea, vomiting, or diarrhea : No reports of dysuria or retention Neurovascular: reports of generalized weakness Physical exam: Gen: This is a 69-year-old female who is asleep although easily arousable , alert and oriented x 3, well-developed, chronically ill-appearing, elderly, obese HEENT: Head is atraumatic, normocephalic. Pupils equal, round. Sclerae is anicteric. NECK: Supple. No JVD. No lymphadenopathy. No thyromegaly. LUNGS: Diminished breath sounds bilaterally with some forced expiratory wheezes and coarse rhonchi noted. No intercostal retractions. HEART: S1, S2 are muffled ABDOMEN: Soft. Obese. Bowel sounds are present. No masses. No tenderness. EXTREMITIES: No pedal edema. No calf tenderness. NEUROLOGICAL: Patient is awake, alert and oriented x3. Cranial nerves 2 through 12 are grossly intact. Diffusely weak All medications have been reviewed Assessment: - Acute on chronic hypoxic/Hypercapnic respiratory failure and chronically wears 3 L outpatient -Pneumonia, present on admission; chest x-ray reveals right lower lobe infiltrate; WBC is elevated at 30 -Hyponatremia; sodium at 128; likely related to lung pathology -Acute exacerbation COPD -Hypertension -Anxiety/depression/bipolar disorder -Hypothyroidism - Obesity with a BMI of 36.8 -Continued ongoing nicotine dependence -THC use -GI prophylaxis -DVT prophylaxis -Full code Plan: Patient will be continued on IV steroids and breathing treatments around-the- clock with pulmonary following. Patient is chronically wearing 3 L outpatient and tolerating although does report continued cough and shortness of breath with minimal exertion. Patient was scheduled for discharge and reported she is gasping for air and not ready for discharge and discussed with pulmonary recommend monitoring overnight to consider discharge planning in a.m. Patient to continue on antibiotics at this time and will continue to monitor white count, trending down elevated due to reactivity as patient is maintained on IV steroids Encouraged increase activity as tolerated Follow-up on repeat labs Will discuss with pulmonary regarding possible discharge planning in the next 24 hours Due to multiple complex medical issues, overall prognosis is guarded. Patient is high risk for readmissions and has had multiple hospitalizations and ER visits secondary to COPD The impression and plan of care has been dictated by Audrey Curtis, Nurse Practitioner as directed. Dr. Isaias MD I have performed a history and examination and MDM of this patient, discussed the same with the dictator, and agree with the dictator's assessment and plan as written ,documented as a scribe. Based on total visit time, I have performed more than 50% of the visit. Objective - Vital Signs Vital signs: Vital Signs Temp 97.9 F 12/26/24 11:45 Pulse 72 12/26/24 11:45 Resp 18 12/26/24 11:45 BP 139/63 12/26/24 11:45 Pulse Ox 95 12/26/24 11:45 FiO2 Intake & Output 12/25/24 12/26/24 12/26/24 18:59 06:59 18:59 Intake Total 970 358 Output Total 300 1000 300 Balance 670 -1000 58 Weight 84.5 kg Intake: IV 10 Invasive Line 1 10 Oral 960 358 Output: Urine 300 1000 300 Other: Voiding Method Bedside Commode Bedside Commode # Voids 2 - Labs CBC & Chem 7: 12/25/24 06:11 12/25/24 06:11 Labs: Microbiology - Last 24 Hours (Table) 12/25/24 16:25 Gram Stain - Preliminary Sputum 12/24/24 12:08 Blood Culture - Preliminary Blood
--- NOTE | 2024-12-27 07:17 | XR ---
EXAMINATION TYPE: XR chest 1V portable DATE OF EXAM: 12/27/2024 6:55 AM COMPARISON: None. CLINICAL INDICATION: Female, 69 years old with history of pneumonia, TECHNIQUE: XR chest 1V portable view(s) obtained. FINDINGS: The heart size is normal. The pulmonary vasculature is normal. There is some atelectatic type. Changes to the right lower lung field. Mild infiltrate may be at the left base. Findings are stable. IMPRESSION: 1. Bibasilar infiltrates. [facility], , 12/27/2024 7:15 AM
[2024-12-27 07:20] LABS: Basophils # (A) 0.03 10*3/uL (0.00-0.10); Basophils % (A) 0.2 %; HCT 35.6 % (37.2-46.3); HGB 11.2 g/dL (12.0-15.0); Lymphocytes # (A) 0.46 10*3/uL (0.90-5.00); Lymphocytes % (A) 2.4 %; MCH 30.6 pg (27.0-32.0); MCHC 31.5 g/dL (32.0-37.0); MCV 97.3 fL (80.0-97.0); Mean Platelet Volume 10.1 fL (9.5-12.2); Monocytes # (A) 0.49 10*3/uL (0.20-1.00); Monocytes % (A) 2.5 %; Neutrophils # (A) 18.31 10*3/uL (1.80-7.70); Neutrophils % (A) 93.7 %; Platelet Count 238 10*3/uL (140-440); RBC 3.66 10*6/uL (4.10-5.20); RDW 14.3 % (11.5-14.5); WBC 19.53 10*3/uL (4.50-10.00)
[2024-12-27 10:03] VITALS: TEMP 97.8
[2024-12-27 12:09] VITALS: BP 149/77; RESP 18
[2024-12-27 12:26] VITALS: PULSE 82
--- NOTE | 2024-12-27 16:18 | P.PN ---
Subjective Progress Note Date: 12/27/24 This is a 69-year-old female with known history of COPD, normally sees Dr. Brannon for her COPD, patient continues to smoke in spite of her severe COPD. She was here in the hospital 2 weeks ago, and she was treated for acute exacerbation of COPD. And she was discharged home finished prednisone burst and taper patient is O2 dependent, on 3 L nasal cannula, she has ongoing history of tobacco dependence, heart failure, history of pulmonary embolism, hypothyroidism, fibromyalgia, chronic back pain, and previous history of MRSA tracheobronchitis, patient is maintained at home on DuoNeb, albuterol, and Trelegy. Baseline FEV1 is about 64%, chest x-ray on this admission showed chronic changes, and bibasi lar atelectasis.The patient was recently discharged home on 12/20/2024 after being treated for an acute COPD exacerbation. The sputum sample that was collected on 12/24/2024 was positive for Pseudomonas aeruginosa. The patient came back to the emergency department today having difficulties in breathing. Her blood work shows a white cell count of 30.2 with a hemoglobin 11.1 and the platelet count of 221. Sodium is at 128, bicarb is at 39 with a BUN of 39 and creatinine of 0.8. Troponins are negative. proBNP level is 1240. Viral screen was negative Blood gas was done in the ED and the patient was found to have a pH of 7.38 with a pCO2 of 70 FiO2 of 60 and this was done on 40 Suboxone by nasal cannula. Accordingly, the patient was started on IV cefepime and Zithromax was also added to the regimen. She is currently on IV fluids. She is on DuoNeb nebulizer treatments [id number]. Chest x-ray was reviewed and compared to the earlier chest x-rays from 12/19/2024. The patient has chronic atelectatic changes in lung bases. There are some further opacification of the right lung base and underlying right lower lobe pneumonia cannot be completely excluded. Noted, the patient has some chronic scarring and atelectatic changes lung bases bilaterally. Seen today on 12/25/2024, patient is feeling a bit better, continues to have intermittent cough and wheezing, patient is on bronchodilators, she is also on cefepime and Zithromax, she is on DuoNeb, chest x-ray today showed improvement in her right basilar airspace disease with persistent linear scarring and/or atelectasis there is also a small left pleural effusion associated atelectasis patient has leukocytosis but improving WC is 27.2 hemoglobin is 10.5 ABG on admission showed a pO2 of 60 pCO2 70 pH of 7.38 patient is compensating quite well for her respiratory acidosis. Viral 4 Plex screen was negative Seen today on 12/26/2024, patient is feeling better, less cough less wheezing less shortness of breath, patient remains on antibiotics, remains on bronchodilators and steroids, she can be considered for discharge if cleared by other consultants on the case. Definite improvement compared to yesterday and the day before. However the patient continues to have leukocytosis based on her CBC yesterday her white count was as high as 27.25, basic metabolic profile is unremarkable. Bicarb is 37. Urine Legionella antigen is negative. The patient is seen today December 27, 2024 in follow-up on the selective care unit. She is currently sitting up in a chair at the bedside. Awake and alert in no acute distress. Maintaining good O2 saturations in the 90s on 3 L/min per nasal cannula. She has been afebrile. Hemodynamically stable. Sputum culture was positive for Pseudomonas. White count 19.5. Hemoglobin 11.2. Platelets 238. She remains on DuoNeb inhalations, Mucinex, Solu-Medrol, Singulair. Antibiotics in the form of cefepime. Objective - Vital Signs Vital signs: Vital Signs Temp 97.8 F 12/27/24 08:00 Pulse 82 12/27/24 12:26 Resp 18 12/27/24 12:00 BP 149/77 12/27/24 12:00 Pulse Ox 92 L 12/27/24 12:00 FiO2 Intake & Output 12/26/24 12/27/24 12/27/24 18:59 06:59 18:59 Intake Total 958 540 Output Total 1000 975 700 Balance -42 -975 -160 Weight 84.8 kg Intake: Oral 958 540 Output: Urine 1000 975 700 Other: Voiding Method Bedside Commode Bedside Commode # Voids 1 1 - Exam GENERAL EXAM: Alert, pleasant 69-year-old female, up in a chair, on 3 L nasal cannula, fairly comfortable in no apparent distress. HEAD: Normocephalic. EYES: Normal reaction of pupils, equal size. NOSE: Clear with pink turbinates. THROAT: No erythema or exudates. NECK: No masses, no JVD. CHEST: No chest wall deformity. LUNGS: Equal air entry with no crackles, wheeze, rhonchi or dullness. Diminished CVS: S1 and S2 normal with no audible murmur, regular rhythm. ABDOMEN: No hepatosplenomegaly, normal bowel sounds, no guarding or rigidity. SPINE: No scoliosis or deformity SKIN: No rashes CENTRAL NERVOUS SYSTEM: No focal deficits, tone is normal in all 4 extremities. EXTREMITIES: There is no peripheral edema. No clubbing, no cyanosis. Peripheral pulses are intact. - Labs CBC & Chem 7: 12/27/24 06:17 12/25/24 06:11 Labs: Abnormal Lab Results - Last 24 Hours (Table) 12/27/24 Range/Units 06:17 WBC 19.53 H (4.50-10.00) 10*3/uL RBC 3.66 L (4.10-5.20) 10*6/uL Hgb 11.2 L (12.0-15.0) g/dL Hct 35.6 L (37.2-46.3) % MCV 97.3 H (80.0-97.0) fL MCHC 31.5 L (32.0-37.0) g/dL Immature Gran # 0.24 H (0.00-0.04) 10*3/uL Neutrophils # 18.31 H (1.80-7.70) 10*3/uL Lymphocytes # 0.46 L (0.90-5.00) 10*3/uL Eosinophils # 0.00 L (0.04-0.35) 10*3/uL Microbiology - Last 24 Hours (Table) 12/25/24 16:25 Gram Stain - Preliminary Sputum Sputum Culture - Preliminary Pseudomonas spec 12/24/24 12:08 Blood Culture - Preliminary Blood Assessment and Plan Assessment: Acute on chronic hypoxic, and hypercapnic respiratory failure. Sputum culture positive for Pseudomonas and currently on cefepime Acute COPD exacerbation Chronic shortness of breath Left hemidiaphragm elevation possible paralysis Chronic hyponatremia with euvolemia Hypothyroidism Hypertension History of mediastinal lymphadenopathy History of gastric bypass surgery Bipolar disorder Fibromyalgia and chronic pain syndrome Chronic hypoxic respiratory failure Plan: The patient was seen and evaluated Chest x-ray, labs and medications reviewed Stable and on 3 L nasal cannula Cleared for discharge Continue her home pulmonary medications Continue her home oxygen Complete a prednisone taper Completed course of antibiotics Follow-up in our office in 1 week I have personally seen and examined the patient, performed the documentation and the assessment and plan as written. Number of minutes spent on the visit: 10 Dictation was produced using [employer] dictation software. Please excuse any grammatical, word or spelling errors.
--- NOTE | 2024-12-28 05:51 | P.DS ---
Providers Date of admission: 12/24/24 13:32 Expected date of discharge: 12/26/24 Attending physician: Dominguez Woods MD Consults: 12/24/24 13:32 Consult Physician Routine Consulting Provider: Ana Maria Carr Consult Reason/Comments: jaun Do you want consulting provider notified?: Yes Primary care physician: Andrzej Wheeler Hospital Course: Final diagnosis - Acute on chronic hypoxic/Hypercapnic respiratory failure and chronically wears 3 L outpatient -Pneumonia, present on admission; chest x-ray reveals right lower lobe infiltrate; WBC is elevated at 30 -Hyponatremia; sodium at 128; likely related to lung pathology -Acute exacerbation COPD -Hypertension -Anxiety/depression/bipolar disorder -Hypothyroidism - Obesity with a BMI of 36.8 -Continued ongoing nicotine dependence -THC use -GI prophylaxis -DVT prophylaxis -Full code Discharge disposition Patient is being discharged in a stable condition with guarded prognosis to home. Patient will follow-up with Dr. Andrzej Wheeler in the outpatient setting upon discharge. Patient is to continue with steroid taper along with oral Levaquin and outpatient follow-up with pulmonary as scheduled. Total time taken is greater than 35 minutes. Hospital course This is a 69-year-old female who was recently admitted with increased shortness of breath with COPD exacerbation also with an elevated white count with concerns of right lower lobe infiltrate. Patient has had multiple hospitalizations and has extreme anxiety reporting significant shortness of breath. Patient being followed by pulmonary maintained on IV steroids along with breathing treatments [id number] showing some clinical improvement and white count is trending down. Patient maintained on antibiotics and will transition to Levaquin on discharge with a prednisone taper and continued breathing treatments. Patient is to follow-up with primary care provider as well as pulmonary in the outpatient setting. Patient has had multiple hospitalizations and ER visits and has been unable to follow-up with anyone outpatient. Patient will be discharged home today. Patient has been cleared by consultation. Please refer to pulmonary consultation notes for further HPI. Currently no reports of chest pain, shortness of breath, or palpitations. Patient is afebrile. No reports of nausea or vomiting and patient is tolerating diet. Patient will be discharged home today. Extremely guarded prognosis and high risk for readmission given patient's severe anxiety and COPD Physical exam: Gen: This is a 69-year-old female who is awake, alert and oriented x 3, well- developed, elderly appearing, obese HEENT: Head is atraumatic, normocephalic. Pupils equal, round. Sclerae is anicteric. NECK: Supple. No JVD. No lymphadenopathy. No thyromegaly. LUNGS: Diminished breath sounds bilaterally with forced expiratory wheezes and coarse rhonchi. No intercostal retractions. HEART: S1, S2 are muffled ABDOMEN: Soft. Obese bowel sounds are present. No masses. No tenderness. EXTREMITIES: No pedal edema. No calf tenderness. NEUROLOGICAL: Patient is awake, alert and oriented x3. Cranial nerves 2 through 12 are grossly intact. Diffusely weak Please refer to medication reconciliation sheet for a list of medications. The impression and plan of care has been dictated by Audrey Curtis, Nurse Practitioner as directed. Dr. Isaias MD I have performed a history and examination and MDM of this patient, discussed the same with the dictator, and agree with the dictator's assessment and plan as written ,documented as a scribe. Based on total visit time, I have performed more than 50% of the visit. Patient Condition at Discharge: Fair Plan - Discharge Summary Discharge Rx Participant: No New Discharge Prescriptions: New Azithromycin [Zithromax] 500 mg PO DAILY 5 Days #5 tab Ipratropium-Albuterol Nebulize [Duoneb 0.5 mg-3 mg/3 ml Soln] 3 ml INHALATION RT-Q4H PRN each PRN Reason: shortness of breath predniSONE See Taper PO DIRECTED #30 tab Continue Montelukast [Singulair] 10 mg PO HS Levothyroxine Sodium [Synthroid] 150 mcg PO DAILY Ipratropium-Albuterol Nebulize [Duoneb 0.5 mg-3 mg/3 ml Soln] 3 ml INHALATION RT-QID clonazePAM [KlonoPIN ODT] 0.25 mg PO HS lamoTRIgine [LaMICtal] 100 mg PO BID busPIRone HCL [Buspar] 30 mg PO BID Fluticasone/Umeclidin/Vilanter [Trelegy Ellipta 200-62.5-25] 1 puff INHALATION RT-DAILY Furosemide [Lasix] 20 mg PO DAILY guaiFENesin [Mucinex] 600 mg PO BID ALPRAZolam [Xanax] 0.25 mg PO BID PRN 5 Days #10 tab PRN Reason: Anxiety Famotidine [Pepcid] 20 mg PO BID Tamsulosin [Flomax] 0.4 mg PO DAILY Albuterol Inhaler [Ventolin Hfa Inhaler] 2 puff INHALATION RT-QID PRN #1 each PRN Reason: Shortness Of Breath Metoprolol Tartrate [Lopressor] 25 mg PO BID Divalproex ER [Depakote ER] 250 mg PO BID #60 tab Gabapentin 300 mg PO TID OLANZapine 15 mg PO HS Venlafaxine HCl [Effexor XR] 150 mg PO DAILY amLODIPine [Norvasc] 5 mg PO BID 30 Days #60 tab lisinopriL [Zestril] 10 mg PO DAILY 30 Days #30 tab Nitroglycerin Sl Tabs [Nitrostat] 0.4 mg SUBLINGUAL Q5M PRN #20 tab PRN Reason: Chest Pain HYDROcodone/APAP 5-325MG [[place] 5-325] 1 tab PO BID PRN PRN Reason: Pain Discharge Medication List Montelukast [Singulair] 10 mg PO HS 12/17/13 [History] Levothyroxine Sodium [Synthroid] 150 mcg PO DAILY 03/29/20 [History] Famotidine [Pepcid] 20 mg PO BID 09/03/21 [History] Tamsulosin [Flomax] 0.4 mg PO DAILY 10/26/21 [History] Ipratropium-Albuterol Nebulize [Duoneb 0.5 mg-3 mg/3 ml Soln] 3 ml INHALATION RT-QID 11/13/22 [History] Albuterol Inhaler [Ventolin Hfa Inhaler] 2 puff INHALATION RT-QID PRN #1 each 11/17/22 [Rx] clonazePAM [KlonoPIN ODT] 0.25 mg PO HS 12/12/23 [History] lamoTRIgine [LaMICtal] 100 mg PO BID 03/18/24 [History] Metoprolol Tartrate [Lopressor] 25 mg PO BID 05/16/24 [History] Divalproex ER [Depakote ER] 250 mg PO BID #60 tab 05/26/24 [Rx] Gabapentin 300 mg PO TID 06/01/24 [History] busPIRone HCL [Buspar] 30 mg PO BID 11/22/24 [History] Fluticasone/Umeclidin/Vilanter [Trelegy Ellipta 200-62.5-25] 1 puff INHALATION RT-DAILY 10/17/24 [History] OLANZapine 15 mg PO HS 10/17/24 [History] Venlafaxine HCl [Effexor XR] 150 mg PO DAILY 10/17/24 [History] amLODIPine [Norvasc] 5 mg PO BID 30 Days #60 tab 10/21/24 [Rx] lisinopriL [Zestril] 10 mg PO DAILY 30 Days #30 tab 10/21/24 [Rx] Nitroglycerin Sl Tabs [Nitrostat] 0.4 mg SUBLINGUAL Q5M PRN #20 tab 11/30/24 [Rx] Furosemide [Lasix] 20 mg PO DAILY 12/11/24 [History] HYDROcodone/APAP 5-325MG [[place] 5-325] 1 tab PO BID PRN 12/11/24 [History] guaiFENesin [Mucinex] 600 mg PO BID 12/24/24 [History] Azithromycin [Zithromax] 500 mg PO DAILY 5 Days #5 tab 12/26/24 [Rx] Ipratropium-Albuterol Nebulize [Duoneb 0.5 mg-3 mg/3 ml Soln] 3 ml INHALATION RT-Q4H PRN each 12/26/24 [Rx] predniSONE See Taper PO DIRECTED #30 tab 12/26/24 [Rx] ALPRAZolam [Xanax] 0.25 mg PO BID PRN 5 Days #10 tab 12/27/24 [Rx] Follow up Appointment(s)/Referral(s): Andrzej Wheeler MD [Primary Care Provider] - 1-2 days (CALL AND MAKE BOUBACAR! (PCP)) Shaw Brannon DO [Doctor of Osteopathic Medicine] - 1 Week (CALL AND MAKE BOUBACAR! (LUNG DOC)) Ambulatory/Diagnostic Orders: Complete Blood Count w/diff [LAB.AMB] Time Frame: 3 Days, Location: None Selected Patient Instructions/Handouts: COPD (Chronic Obstructive Pulmonary Disease) (DC ) Activity/Diet/Wound Care/Special Instructions: Activity limited until follow-up Follow-up with primary care provider on discharge Follow-up with pulmonary outpatient Continue taking medications as prescribed Discharge Disposition: HOME SELF-CARE
== END 2024-12-27 14:16 | disposition home or self-care (01) ==
LOC: EC 11:16 → 3SCARD 13:32
PROVIDERS: ADMIT Internal Medicine; ATTEND Internal Medicine
DX: J44.0 Chronic obstructive pulmonary disease with (acute) lower respiratory infection (principal); J18.9 Pneumonia, unspecified organism; B96.5 Pseudomonas (aeruginosa) (mallei) (pseudomallei) as the cause of diseases classified elsewhere; J98.11 Atelectasis; J44.1 Chronic obstructive pulmonary disease with (acute) exacerbation; J96.22 Acute and chronic respiratory failure with hypercapnia; J96.21 Acute and chronic respiratory failure with hypoxia; E87.1 Hypo-osmolality and hyponatremia; I11.0 Hypertensive heart disease with heart failure; I50.9 Heart failure, unspecified; K21.9 Gastro-esophageal reflux disease without esophagitis; F31.9 Bipolar disorder, unspecified; F41.0 Panic disorder [episodic paroxysmal anxiety]; E03.9 Hypothyroidism, unspecified; M79.7 Fibromyalgia; M51.26 Other intervertebral disc displacement, lumbar region; M51.27 Other intervertebral disc displacement, lumbosacral region; M48.02 Spinal stenosis, cervical region; M41.9 Scoliosis, unspecified; G89.4 Chronic pain syndrome; F17.200 Nicotine dependence, unspecified, uncomplicated; E66.9 Obesity, unspecified; Z68.36 Body mass index [BMI] 36.0-36.9, adult; Z86.14 Personal history of Methicillin resistant Staphylococcus aureus infection; Z86.711 Personal history of pulmonary embolism; Z98.84 Bariatric surgery status; Z79.890 Hormone replacement therapy; Z79.899 Other long term (current) drug therapy; Z88.0 Allergy status to penicillin; Z88.2 Allergy status to sulfonamides; Z88.5 Allergy status to narcotic agent
CPT/HCPCS: 96376 ×5; 96366 ×4; 96365; 96367; 96374; 96375; 99291; 36415; 94640 ×8; 36600; 94760 ×4; 93005; 85379; 83880; 80053; 80048; 87449; 82805; 83605; 83735; 84484; 85025 ×3; 85610; 85730; 87040; 87070; 87205; 87636; 71045 ×2; 71046; G0378 ×4; J2060; J0456 ×3; J0692 ×4; J2919 ×5; 87077; 87186

== ENCOUNTER 2024-12-27 22:04 | Inpatient (IN) | payer MEDICARE ==
--- NOTE | 2024-12-27 22:28 | ED ---
General Adult HPI - General Chief complaint: Shortness of Breath Stated complaint: SOB Time Seen by Provider: 12/27/24 22:09 Source: patient, EMS, RN notes reviewed, old records reviewed Mode of arrival: EMS Limitations: no limitations - History of Present Illness Initial comments: 69-year-old female presenting for evaluation of cough and dyspnea. Patient was discharged from the hospital earlier today after COPD exacerbation and sputum positive for Pseudomonas. Patient is on oral antibiotics. She states she had increased cough and dyspnea while at home prompting repeat ER visit. Patient does not feel that she has improved enough at this point to be out of the hospital. No fever. No central chest pain. - Related Data Home Medications Medication Instructions Recorded Confirmed Montelukast [Singulair] 10 mg PO HS 12/17/13 12/24/24 Levothyroxine Sodium [Synthroid] 150 mcg PO DAILY 03/29/20 12/24/24 Famotidine [Pepcid] 20 mg PO BID 09/03/21 12/24/24 Tamsulosin [Flomax] 0.4 mg PO DAILY 10/26/21 12/24/24 Ipratropium-Albuterol Nebulize 3 ml INHALATION RT-QID 11/13/22 12/24/24 [Duoneb 0.5 mg-3 mg/3 ml Soln] clonazePAM [KlonoPIN ODT] 0.25 mg PO HS 12/12/23 12/24/24 lamoTRIgine [LaMICtal] 100 mg PO BID 03/18/24 12/24/24 Metoprolol Tartrate [Lopressor] 25 mg PO BID 05/16/24 12/24/24 Gabapentin 300 mg PO TID 06/01/24 12/24/24 busPIRone HCL [Buspar] 30 mg PO BID 06/09/24 12/24/24 Fluticasone/Umeclidin/Vilanter 1 puff INHALATION RT-DAILY 10/17/24 12/24/24 [Trelegy Ellipta 200-62.5-25] OLANZapine 15 mg PO HS 10/17/24 12/24/24 Venlafaxine HCl [Effexor XR] 150 mg PO DAILY 10/17/24 12/24/24 Furosemide [Lasix] 20 mg PO DAILY 12/11/24 12/24/24 HYDROcodone/APAP 5-325MG [Ismay 1 tab PO BID PRN 12/11/24 12/24/24 5-325] guaiFENesin [Mucinex] 600 mg PO BID 12/24/24 12/24/24 Previous Rx's Medication Instructions Recorded Albuterol Inhaler [Ventolin Hfa 2 puff INHALATION RT-QID PRN #1 11/17/22 Inhaler] each Divalproex ER [Depakote ER] 250 mg PO BID #60 tab 05/26/24 amLODIPine [Norvasc] 5 mg PO BID 30 Days #60 tab 10/21/24 lisinopriL [Zestril] 10 mg PO DAILY 30 Days #30 tab 10/21/24 Nitroglycerin Sl Tabs [Nitrostat] 0.4 mg SUBLINGUAL Q5M PRN #20 tab 11/30/24 Azithromycin [Zithromax] 500 mg PO DAILY 5 Days #5 tab 12/26/24 Ipratropium-Albuterol Nebulize 3 ml INHALATION RT-Q4H PRN each 12/26/24 [Duoneb 0.5 mg-3 mg/3 ml Soln] predniSONE See Taper PO DIRECTED #30 tab 12/26/24 ALPRAZolam [Xanax] 0.25 mg PO BID PRN 5 Days #10 tab 12/27/24 Allergies Allergy/AdvReac Type Severity Reaction Status Date / Time codeine Allergy Unknown Verified 12/24/24 11:21 Childhood Penicillins Allergy Rash/Hives Verified 12/24/24 11:21 Sulfa (Sulfonamide Allergy Rash/Hives Verified 12/24/24 11:21 Antibiotics) Review of Systems ROS Statement: Those systems with pertinent positive or pertinent negative responses have been documented in the HPI. ROS Other: All systems not noted in ROS Statement are negative. 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 History of Any Multi-Drug Resistant Organisms: MRSA, Other MDRO Date of last positivie culture/infection: 12/19/24-Other MDRO; 11/27/24-MRSA MDRO Source:: Other MDRO-sputum; MRSA-sputum, knee Past Surgical History: Bariatric Surgery, Section, Cholecystectomy, Hysterectomy, Tonsillectomy Additional Past Surgical History / Comment(s): EGD, colonoscopies, gastric bypass, surgery for deviated septum, left cataract removal (having laser procedure on that eye 11/24/23) Past Anesthesia/Blood Transfusion Reactions: Previous Problems w/ Anesthesia Additional Past Anesthesia/Blood Transfusion Reaction / Comment(s): itching af ter hysterectomy, some kind of breathing problem after gastric bypass-not sure what happened Past Psychological History: Anxiety, Bipolar, Depression, Panic Disorder Smoking Status: Current every day smoker Past Alcohol Use History: None Reported Past Drug Use History: Marijuana - Past Family History Mother Family Medical History: Congestive Heart Failure (CHF), Hypertension Father History Unknown: Yes Additional Family Medical History / Comment(s): Father at the age of 45 yrs d/t having had rheumatic fever as a child and heart valve disease. General Exam Limitations: no limitations General appearance: alert, in no apparent distress Head exam: Present: atraumatic, normocephalic Eye exam: Present: normal appearance, PERRL ENT exam: Present: normal exam Neck exam: Present: normal inspection. Absent: tenderness, meningismus Respiratory exam: Present: wheezes, rhonchi, decreased breath sounds Cardiovascular Exam: Present: regular rate, normal rhythm GI/Abdominal exam: Present: soft. Absent: distended, tenderness, guarding Extremities exam: Present: normal inspection, normal capillary refill. Absent: pedal edema Neurological exam: Present: alert, oriented X3, CN II-XII intact. Absent: motor sensory deficit Psychiatric exam: Present: normal affect, normal mood Skin exam: Present: warm, dry, intact Course Vital Signs 12/27/24 12/27/24 12/27/24 22:05 22:09 22:56 Temperature 97.7 F Pulse Rate 77 75 75 Respiratory 24 Rate Blood Pressure 121/56 O2 Sat by Pulse 91 L 91 L Oximetry 12/27/24 12/27/24 23:08 23:11 Temperature Pulse Rate 68 71 Respiratory 20 Rate Blood Pressure 115/47 O2 Sat by Pulse 94 L Oximetry Medical Decision Making - Medical Decision Making Was pt. sent in by a medical professional or institution (HERMINIA Shepard, ANALYTICAL RESEARCH CHEMIST, urgent care, hospital, or fdc...) When possible be specific @ -No Did you speak to anyone other than the patient for history (EMS, parent, family, police, friend...)? What history was obtained from this source @ -No Did you review nursing and triage notes (agree or disagree)? Why? @ -I reviewed and agree with nursing and triage notes Were old charts reviewed (outside hosp., previous admission, EMS record, old EKG, old radiological studies, urgent care reports/EKG's, fdc records)? Report findings @ -No old charts were reviewed Differential Dyspnea: Coronary syndrome, arrhythmia, tamponade, asthma, COPD, pulmonary embolism, pneumonia, pneumothorax, pulmonary effusion, anaphylaxis, diabetic ketoacidosis, flailed chest, pulmonary contusion, diaphragmatic rupture, anemia, neuromuscular, this is not meant to be an all-inclusive list. EKG interpreted by me (3pts min.). @ -Sinus rhythm with PVC rate of 77, NM interval 144, QRS duration 120, QTc [address] segment elevation. X-rays interpreted by me (1pt min.). @ -Chest x-ray shows cardiomegaly, opacity in the right midlung field. CT interpreted by me (1pt min.). @ -None done U/S interpreted by me (1pt. min.). @ -None done What testing was considered but not performed or refused? (CT, X-rays, U/S, labs)? Why? @ -None What meds were considered but not given or refused? Why? @ -None Did you discuss the management of the patient with other professionals (professionals i.e. HERMINIA Shepard, ANALYTICAL RESEARCH CHEMIST, lab, RT, psych nurse, social sciences professor, vein access technician, teacher, risk officer, behavioral health case manager)? Give summary @ -EMH Was smoking cessation discussed for >3mins.? @ -No Was critical care preformed (if so, how long)? @ -No Were there social determinants of health that impacted care today? How? (Homelessness, low income, unemployed, alcoholism, drug addiction, t ransportation, low edu. Level, literacy, decrease access to med. care, shelter, rehab)? @ -No Was there de-escalation of care discussed even if they declined (Discuss DNR or withdrawal of care, Hospice)? DNR status @ -No What co-morbidities impacted this encounter? (DM, HTN, Smoking, COPD, CAD, Cance r, CVA, ARF, Chemo, Hep., AIDS, mental health diagnosis, sleep apnea, morbid obesity)? @ -[Oxygen dependent COPD, diabetes Was patient admitted / discharged? Hospital course, mention meds given and r oute, prescriptions, significant lab abnormalities, going to OR and other pertinent info. @ -Patient readmitted with COPD and elevated blood sugar. Blood sugar is 600, given IV fluids and IV insulin in the emergency department. Continued on antibiotics with x-ray evidence of likely pneumonia. Undiagnosed new problem with uncertain prognosis? @ -[No Drug Therapy requiring intensive monitoring for toxicity (Heparin, Nitro, Insulin, Cardizem)? @ -No Were any procedures done? @ -No Diagnosis/symptom? @COPD, pneumonia, hyperglycemia Acute, or Chronic, or Acute on Chronic? @ -[Acute Uncomplicated (without systemic symptoms) or Complicated (systemic symptoms)? @ -Default Side effects of treatment? @ -No Exacerbation, Progression, or Severe Exacerbation? @ -No Poses a threat to life or bodily function? How? (Chest pain, USA, DC, pneumonia, PE, COPD, DKA, ARF, appy, cholecystitis, CVA, Diverticulitis, Homicidal, Suicidal, threat to staff... and all critical care pts) @ -Yes, DKA, sepsis, respiratory failure - Lab Data Result diagrams: 12/27/24 22:08 12/27/24 22:08 Lab Results 12/27/24 12/27/24 12/27/24 Range/Units 22:08 22:08 22:08 WBC 21.47 H (4.50-10.00) 10*3/uL RBC 3.72 L (4.10-5.20) 10*6/uL Hgb 11.3 L (12.0-15.0) g/dL Hct 36.2 L (37.2-46.3) % MCV 97.3 H (80.0-97.0) fL MCH 30.4 (27.0-32.0) pg MCHC 31.2 L (32.0-37.0) g/dL Plt Count 282 (140-440) 10*3/uL MPV 9.5 (9.5-12.2) fL Immature Gran % (Auto) 1.8 % Neutrophils % 90.4 % Lymphocytes % 1.4 % Monocytes % 6.2 % Eosinophils % 0.0 % Basophils % 0.2 % Immature Gran # 0.39 H (0.00-0.04) 10*3/uL Neutrophils # 19.39 H (1.80-7.70) 10*3/uL Lymphocytes # 0.31 L (0.90-5.00) 10*3/uL Monocytes # 1.33 H (0.20-1.00) 10*3/uL Eosinophils # 0.00 L (0.04-0.35) 10*3/uL Basophils # 0.05 (0.00-0.10) 10*3/uL Sodium 129 L (137-145) mmol/L Potassium 4.5 (3.5-5.1) mmol/L Chloride 92 L (98-107) mmol/L Carbon Dioxide 31 H (22-30) mmol/L Anion Gap 6 mmol/L BUN 38 H (7-17) mg/dL Creatinine 0.61 (0.52-1.04) mg/dL Est GFR (CKD-EPI)AfAm >90 (>60 ml/min/1.73 sqM) Est GFR (CKD-EPI)NonAf >90 (>60 ml/min/1.73 sqM) Glucose 592 H* (74-99) mg/dL Lactic Ac Sepsis Rflx Plasma Lactic Acid Joel 3.3 H* (0.7-2.0) mmol/L Calcium 8.7 (8.4-10.2) mg/dL Magnesium 1.9 (1.6-2.3) mg/dL Total Bilirubin 0.4 (0.2-1.3) mg/dL AST 26 (14-36) U/L ALT 32 (4-34) U/L Alkaline Phosphatase 90 (38-126) U/L NT-Pro-B Natriuret Pep 2780 pg/mL Total Protein 5.5 L (6.3-8.2) g/dL Albumin 3.4 L (3.5-5.0) g/dL 12/27/24 Range/Units 22:44 WBC (4.50-10.00) 10*3/uL RBC (4.10-5.20) 10*6/uL Hgb (12.0-15.0) g/dL Hct (37.2-46.3) % MCV (80.0-97.0) fL MCH (27.0-32.0) pg MCHC (32.0-37.0) g/dL Plt Count (140-440) 10*3/uL MPV (9.5-12.2) fL Immature Gran % (Auto) % Neutrophils % % Lymphocytes % % Monocytes % % Eosinophils % % Basophils % % Immature Gran # (0.00-0.04) 10*3/uL Neutrophils # (1.80-7.70) 10*3/uL Lymphocytes # (0.90-5.00) 10*3/uL Monocytes # (0.20-1.00) 10*3/uL Eosinophils # (0.04-0.35) 10*3/uL Basophils # (0.00-0.10) 10*3/uL Sodium (137-145) mmol/L Potassium (3.5-5.1) mmol/L Chloride (98-107) mmol/L Carbon Dioxide (22-30) mmol/L Anion Gap mmol/L BUN (7-17) mg/dL Creatinine (0.52-1.04) mg/dL Est GFR (CKD-EPI)AfAm (>60 ml/min/1.73 sqM) Est GFR (CKD-EPI)NonAf (>60 ml/min/1.73 sqM) Glucose (74-99) mg/dL Lactic Ac Sepsis Rflx Y Plasma Lactic Acid Joel (0.7-2.0) mmol/L Calcium (8.4-10.2) mg/dL Magnesium (1.6-2.3) mg/dL Total Bilirubin (0.2-1.3) mg/dL AST (14-36) U/L ALT (4-34) U/L Alkaline Phosphatase (38-126) U/L NT-Pro-B Natriuret Pep pg/mL Total Protein (6.3-8.2) g/dL Albumin (3.5-5.0) g/dL Disposition Clinical Impression: COPD (chronic obstructive pulmonary disease), Pneumonia Disposition: ADMITTED IP TO THIS HOSP Condition: Stable Is patient prescribed a controlled substance at d/c from ED?: No Time of Disposition: 01:42
[2024-12-27 22:29] LABS: Basophils # (A) 0.05 10*3/uL (0.00-0.10); Basophils % (A) 0.2 %; HCT 36.2 % (37.2-46.3); HGB 11.3 g/dL (12.0-15.0); Lymphocytes # (A) 0.31 10*3/uL (0.90-5.00); Lymphocytes % (A) 1.4 %; MCH 30.4 pg (27.0-32.0); MCHC 31.2 g/dL (32.0-37.0); MCV 97.3 fL (80.0-97.0); Mean Platelet Volume 9.5 fL (9.5-12.2); Monocytes # (A) 1.33 10*3/uL (0.20-1.00); Monocytes % (A) 6.2 %; Neutrophils # (A) 19.39 10*3/uL (1.80-7.70); Neutrophils % (A) 90.4 %; Platelet Count 282 10*3/uL (140-440); RBC 3.72 10*6/uL (4.10-5.20); RDW 13.9 % (11.5-14.5); WBC 21.47 10*3/uL (4.50-10.00)
[2024-12-27 22:41] LABS: ALT 32 U/L (4-34); AST 26 U/L (14-36); African American GFR (CKD) >90 (>60 ml/min/1.73 sqM); Albumin 3.4 g/dL (3.5-5.0); Alkaline Phosphatase 90 U/L (38-126); Anion Gap 6 mmol/L; Blood Urea Nitrogen 38 mg/dL (7-17); Calcium 8.7 mg/dL (8.4-10.2); Carbon Dioxide 31 mmol/L (22-30); Chloride 92 mmol/L (98-107); Magnesium 1.9 mg/dL (1.6-2.3); Non-African American GFR(CKD) >90 (>60 ml/min/1.73 sqM); Potassium 4.5 mmol/L (3.5-5.1); Sodium 129 mmol/L (137-145); Total Bilirubin 0.4 mg/dL (0.2-1.3); Total Protein 5.5 g/dL (6.3-8.2)
[2024-12-27 22:44] LABS: Glucose 592 mg/dL (74-99)
[2024-12-27 22:49] LABS: NT-Pro-B-Type Natriuretic Pept 2780 pg/mL
[2024-12-27] MEDS: ALBUTEROL NEBULIZED 2.5 MG/3 ML INHALATION STA (22:53)
[2024-12-27] MEDS: IPRATROPIUM 0.5 MG/2.5 ML NEBU INHALATION STA (22:53)
[2024-12-27] MEDS ORDERED: IPRATROPIUM-ALBUTEROL 3 ML NEB INHALATION PRN (22:54)
[2024-12-27] MEDS ORDERED: NALOXONE 0.4 MG/ML 1 ML VIAL IVP PRN (22:54)
[2024-12-27] MEDS: SODIUM CHLORIDE 0.9% 1,000 ML IV SCH (23:00)
[2024-12-27] MEDS: INSULIN REGULAR 100 UNIT/ML VIAL (IV) IV ONE (23:00)
[2024-12-27] MEDS: LEVOFLOXACIN 500MG-D5W PMX 500 MG in DEXTROSE/WATER 1 100ML.BAG IVPB STA (23:05)
[2024-12-27] MEDS: PMX IVPB STA (23:15)
[2024-12-27] MEDS: LEVOFLOXACIN IVPB STA (23:15)
[2024-12-27] MEDS: WATER IVPB STA (23:15)
[2024-12-27] MEDS: DEXTROSE IVPB STA (23:15)
[2024-12-27] MEDS ORDERED: DEXTROSE 50% SYRINGE 50 ML IVP PRN ×2 (23:33)
[2024-12-27 23:47] LABS: Glucose,Whole Blood 492 mg/dL (70-110)
[2024-12-27] MEDS: INSULIN LISPRO (HumaLOG) 100 UNIT/ML 10 mL VL SQ SCH (23:52)
[2024-12-28 00:54] LABS: Glucose,Whole Blood 396 mg/dL (70-110)
--- NOTE | 2024-12-28 01:37 | XR ---
EXAM: XR Chest, 1 View CLINICAL HISTORY: ITS.REASON XR Reason: jaun TECHNIQUE: Frontal view of the chest. COMPARISON: No relevant prior studies available. IMPRESSION: Elevated left hemidiaphragm. Curvy linear opacity in the right lower lobe. Enlarged heart.
[2024-12-28 02:47] LABS: Glucose,Whole Blood 392 mg/dL (70-110)
[2024-12-28 03:39] LABS: Glucose,Whole Blood 322 mg/dL (70-110)
[2024-12-28 04:38] LABS: Glucose,Whole Blood 239 mg/dL (70-110)
[2024-12-28] MEDS: INSULIN LISPRO (HumaLOG) 100 UNIT/ML 10 mL VL SQ ONE (04:47)
[2024-12-28] MEDS: HYDROcodone/APAP 5-325MG 1 EACH TAB PO STA (05:02)
[2024-12-28] MEDS: ALPRAZolam 0.25 MG TAB PO PRN (05:48)
--- NOTE | 2024-12-28 06:01 | P.CNPUL ---
History of Present Illness Consult date: 12/28/24 Requesting physician: Shaw Sanchez Reason for consult: COPD Chief complaint: Shortness of breath, cough History of present illness: This is a 69-year-old female with known history of COPD, normally sees Dr. Brannon for her COPD, patient continues to smoke in spite of her severe COPD. She was here in the hospital 2 weeks ago, and she was treated for acute exacerbation of COPD. And she was discharged home finished prednisone burst and taper patient is O2 dependent, on 3 L nasal cannula, she has ongoing history of tobacco dependence, heart failure, history of pulmonary embolism, hypothyroidism, fibromyalgia, chronic back pain, and previous history of MRSA tracheobronchitis, patient is maintained at home on DuoNeb, albuterol, and Trelegy. Baseline FEV1 is about 64%, chest x-ray on this admission showed chronic changes, and bibasilar atelectasis.The patient was recently discharged home on 12/20/2024 after being treated for an acute COPD exacerbation. The sputum sample that was c ollected on 12/24/2024 was positive for Pseudomonas aeruginosa. The patient came back to the emergency department today having difficulties in breathing. Her blood work shows a white cell count of 30.2 with a hemoglobin 11.1 and the platelet count of 221. Sodium is at 128, bicarb is at 39 with a BUN of 39 and creatinine of 0.8. Troponins are negative. proBNP level is 1240. Viral screen was negative Blood gas was done in the ED and the patient was found to have a pH of 7.38 with a pCO2 of 70 FiO2 of 60 and this was done on 40 Suboxone by nasal cannula. Accordingly, the patient was started on IV cefepime and Zithromax was also added to the regimen. She is currently on IV fluids. She is on DuoNeb nebulizer treatments [id number]. Chest x-ray was reviewed and compared to the [facility] chest x-rays from 12/19/2024. The patient has chronic atelectatic changes in lung bases. There are some further opacification of the right lung base and underlying right lower lobe pneumonia cannot be completely excluded. Noted, the patient has some chronic scarring and atelectatic changes lung bases bilaterally. Seen today on 12/25/2024, patient is feeling a bit better, continues to have inte rmittent cough and wheezing, patient is on bronchodilators, she is also on cefepime and Zithromax, she is on DuoNeb, chest x-ray today showed improvement in her right basilar airspace disease with persistent linear scarring and/or atelectasis there is also a small left pleural effusion associated atelectasis patient has leukocytosis but improving WC is 27.2 hemoglobin is 10.5 ABG on admission showed a pO2 of 60 pCO2 70 pH of 7.38 patient is compensating quite well for her respiratory acidosis. Viral 4 Plex screen was negative Seen today on 12/26/2024, patient is feeling better, less cough less wheezing less shortness of breath, patient remains on antibiotics, remains on bronchodilators and steroids, she can be considered for discharge if cleared by other consultants on the case. Definite improvement compared to yesterday and the day before. However the patient continues to have leukocytosis based on her CBC yesterday her white count was as high as 27.25, basic metabolic profile is unremarkable. Bicarb is 37. Urine Legionella antigen is negative. The patient is seen today December 27, 2024 in follow-up on the selective care unit. She is currently sitting up in a chair at the bedside. Awake and alert in no acute distress. Maintaining good O2 saturations in the 90s on 3 L/min per nasal cannula. She has been afebrile. Hemodynamically stable. Sputum culture was positive for Pseudomonas. White count 19.5. Hemoglobin 11.2. Platelets 238. She remains on DuoNeb inhalations, Mucinex, Solu-Medrol, Singulair. Antibiotics in the form of cefepime. Pulmonary consultation was requested. Readmission less than 24 hours for acute COPD exacerbation. Recently discharged from the hospital less than 24 hours ago on a steroid taper with Levaquin to be completed at home. Her sputum was previously positive for Pseudomonas aeruginosa. When she got home, she developed some respiratory distress and states she could not catch her breath. She continues to have congested nonproductive cough. Workup in the emergency department including repeat chest showing mostly chronic findings. Left hemidiaphragm elevation, right lung linear atelectasis. Labs include a CBC with a WBC count of 21.5 which is trending down, hemoglobin 11.3 g/dL, platelets 282. CMP: Sodium 129, potassium 4.5, chloride 92, serum bicarb 31, BUN 38, creatinine 0.61, glucose 592. Magnesium 1.9. Lactic was 3.3 and is down to 2. NT proBNP 2780. Patient currently being evaluated emergency department. She is sitting up in bed, on 3 L/min nasal cannula which she wears at home. Does not appear to be any respiratory distress. Continues to have congested cough. No significant sputum production, hemoptysis, chest pain, fevers or chills. No lower extremity edema, chest pain, heart palpitations, or syncope. Did receive a one-time dose of Levaquin in the ED. Normal saline infusing at 75 mL/h. Also, her prednisone taper was resumed. Most recent [id number] glucose down to 239. Current vital signs: Temperature 97.6 F, heart rate 71 bpm, blood pressure 107/51 mmHg, nontachypneic, SpO2 recorded at 98% on 3 L/min nasal cannula. Review of Systems CONSTITUTIONAL: Denies any recent significant weight loss or weight gain. EYES: Denies change in vision. EARS, NOSE, MOUTH, THROAT: Denies headaches, denies sore throat. CARDIOVASCULAR: Denies chest pain, palpitations or syncopal episodes. RESPIRATORY: See HPI GASTROINTESTINAL: Denies change in appetite, denies abdominal pain GENITOURINARY: Denies hematuria, denies infections. MUSKULOSKELETAL: Denies pain, denies swelling. INTEGUMENTARY: Denies rash, denies eczema. NEUROLOGICAL: Denies recent memory loss, no recent seizure activity. PSYCHIATRIC: Positive for anxiety. HEMATOLOGIC/LYMPHATIC: Denies anemia, denies enlarged lymph nodes. 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 History of Any Multi-Drug Resistant Organisms: MRSA, Other MDRO Date of last positivie culture/infection: 12/19/24-Other MDRO; 11/27/24-MRSA MDRO Source:: Other MDRO-sputum; MRSA-sputum, knee Past Surgical History: Bariatric Surgery, Section, Cholecystectomy, Hysterectomy, Tonsillectomy Additional Past Surgical History / Comment(s): EGD, colonoscopies, gastric bypass, surgery for deviated septum, left cataract removal (having laser procedure on that eye 11/24/23) Past Anesthesia/Blood Transfusion Reactions: Previous Problems w/ Anesthesia Additional Past Anesthesia/Blood Transfusion Reaction / Comment(s): itching after hysterectomy, some kind of breathing problem after gastric bypass-not sure what happened Past Psychological History: Anxiety, Bipolar, Depression, Panic Disorder Additional Psychological History / Comment(s): . Smoking Status: Current every day smoker Past Alcohol Use History: None Reported Additional Past Alcohol Use History / Comment(s): Pt started smoking in 1986 and quit when she went into [facility] 08/2021, started again and smokes about half a pack a day. Past Drug Use History: Marijuana Additional Drug Use History / Comment(s): occassional cannabis use per pt - Past Family History Mother Family Medical History: Congestive Heart Failure (CHF), Hypertension Father History Unknown: Yes Additional Family Medical History / Comment(s): Father at the age of 45 yrs d/t having had rheumatic fever as a child and heart valve disease. Medications and Allergies Home Medications Medication Instructions Recorded Confirmed Type Montelukast [Singulair] 10 mg PO HS 12/17/13 12/24/24 History Levothyroxine Sodium [Synthroid] 150 mcg PO DAILY 03/29/20 12/24/24 History Famotidine [Pepcid] 20 mg PO BID 09/03/21 12/24/24 History Tamsulosin [Flomax] 0.4 mg PO DAILY 10/26/21 12/24/24 History Ipratropium-Albuterol Nebulize 3 ml INHALATION RT-QID 11/13/22 12/24/24 History [Duoneb 0.5 mg-3 mg/3 ml Soln] Albuterol Inhaler [Ventolin Hfa 2 puff INHALATION RT-QID PRN #1 11/17/22 12/24/24 Rx Inhaler] each clonazePAM [KlonoPIN ODT] 0.25 mg PO HS 12/12/23 12/24/24 History lamoTRIgine [LaMICtal] 100 mg PO BID 03/18/24 12/24/24 History Metoprolol Tartrate [Lopressor] 25 mg PO BID 05/16/24 12/24/24 History Divalproex ER [Depakote ER] 250 mg PO BID #60 tab 05/26/24 12/24/24 Rx Gabapentin 300 mg PO TID 06/01/24 12/24/24 History busPIRone HCL [Buspar] 30 mg PO BID 06/09/24 12/24/24 History Fluticasone/Umeclidin/Vilanter 1 puff INHALATION RT-DAILY 10/17/24 12/24/24 History [Trelegy Ellipta 200-62.5-25] OLANZapine 15 mg PO HS 10/17/24 12/24/24 History Venlafaxine HCl [Effexor XR] 150 mg PO DAILY 10/17/24 12/24/24 History amLODIPine [Norvasc] 5 mg PO BID 30 Days #60 tab 10/21/24 12/24/24 Rx lisinopriL [Zestril] 10 mg PO DAILY 30 Days #30 tab 10/21/24 12/24/24 Rx Nitroglycerin Sl Tabs [Nitrostat] 0.4 mg SUBLINGUAL Q5M PRN #20 tab 11/30/24 12/24/24 Rx Furosemide [Lasix] 20 mg PO DAILY 12/11/24 12/24/24 History HYDROcodone/APAP 5-325MG [[place] 1 tab PO BID PRN 12/11/24 12/24/24 History 5-325] guaiFENesin [Mucinex] 600 mg PO BID 12/24/24 12/24/24 History Azithromycin [Zithromax] 500 mg PO DAILY 5 Days #5 tab 12/26/24 Rx Ipratropium-Albuterol Nebulize 3 ml INHALATION RT-Q4H PRN each 12/26/24 Rx [Duoneb 0.5 mg-3 mg/3 ml Soln] predniSONE See Taper PO DIRECTED #30 tab 12/26/24 Rx ALPRAZolam [Xanax] 0.25 mg PO BID PRN 5 Days #10 tab 12/27/24 Rx Allergies Allergy/AdvReac Type Severity Reaction Status Date / Time codeine Allergy Unknown Verified 12/24/24 11:21 Childhood Penicillins Allergy Rash/Hives Verified 12/24/24 11:21 Sulfa (Sulfonamide Allergy Rash/Hives Verified 12/24/24 11:21 Antibiotics) Physical Exam Vitals: Vital Signs Temp Pulse Resp BP Pulse Ox 12/28/24 05:01 97.6 F 71 22 107/51 98 12/28/24 02:15 67 14 119/52 96 12/27/24 23:11 71 20 115/47 94 L 12/27/24 23:08 68 12/27/24 22:56 75 12/27/24 22:09 75 91 L 12/27/24 22:05 97.7 F 77 24 121/56 91 L Intake and Output 12/27/24 12/27/24 12/28/24 14:59 22:59 06:59 Other: Weight 84.822 kg GENERAL EXAM: Anxious, 69-year-old female, on 3 L nasal cannula, not in any respiratory distress. HEAD: Normocephalic. EYES: Normal reaction of pupils, equal size. NOSE: Clear with pink turbinates. THROAT: No erythema or exudates. NECK: No masses, no JVD. CHEST: No chest wall deformity. LUNGS: Equal air entry with coarse rhonchi bilaterally. CVS: S1 and S2 normal with no audible murmur, regular rhythm. ABDOMEN: No hepatosplenomegaly, normal bowel sounds, no guarding or rigidity. SPINE: No scoliosis or deformity SKIN: No rashes CENTRAL NERVOUS SYSTEM: No focal deficits, tone is normal in all 4 extremities. EXTREMITIES: There is no peripheral edema. No clubbing, no cyanosis. Peripheral pulses are intact. Results - Laboratory Findings CBC and BMP: 12/27/24 22:08 12/27/24 22:08 Abnormal lab findings: Abnormal Labs 12/27/24 12/27/24 12/27/24 22:08 22:08 22:08 WBC 21.47 H RBC 3.72 L Hgb 11.3 L Hct 36.2 L MCV 97.3 H MCHC 31.2 L Immature Gran # 0.39 H Neutrophils # 19.39 H Lymphocytes # 0.31 L Monocytes # 1.33 H Eosinophils # 0.00 L Sodium 129 L Chloride 92 L Carbon Dioxide 31 H BUN 38 H Glucose 592 H* POC Glucose (mg/dL) Plasma Lactic Acid Joel 3.3 H* Total Protein 5.5 L Albumin 3.4 L 12/27/24 12/28/24 12/28/24 23:45 00:53 02:44 WBC RBC Hgb Hct MCV MCHC Immature Gran # Neutrophils # Lymphocytes # Monocytes # Eosinophils # Sodium Chloride Carbon Dioxide BUN Glucose POC Glucose (mg/dL) 492 H 396 H 392 H Plasma Lactic Acid Joel Total Protein Albumin 12/28/24 12/28/24 03:38 04:35 WBC RBC Hgb Hct MCV MCHC Immature Gran # Neutrophils # Lymphocytes # Monocytes # Eosinophils # Sodium Chloride Carbon Dioxide BUN Glucose POC Glucose (mg/dL) 322 H 239 H Plasma Lactic Acid Joel Total Protein Albumin - Diagnostic Findings Chest x-ray: image reviewed Assessment and Plan Assessment: Acute COPD exacerbation Acute on chronic shortness of breath, secondary to above Sputum culture from 12/25/2024 again positive for Pseudomonas aeruginosa Left hemidiaphragm elevation possible paralysis Chronic obstructive pulmonary disease, with an FEV1 64% predicted, Gold stage II Chronic hypoxemic respiratory failure, secondary to combination of above Severe hyperglycemia Pseudohyponatremia, secondary to above Leukocytosis, possibly secondary to steroid use Sputum positive for MRSA 11/27/2024 Chronic ongoing tobacco dependence Hypothyroidism Hypertension History of mediastinal lymphadenopathy History of gastric bypass surgery Bipolar disorder Fibromyalgia and chronic pain syndrome Plan: Readmission for acute COPD exacerbation, patient was seen and evaluated Chest x-ray showing mostly chronic findings Stable and on 3 L nasal cannula Continue Levaquin Continue combination of symbicort inhaler, DuoNebs [id number], and prednisone taper Blood glucose management per admitting team We will continue to follow I have personally seen and examined the patient, performed the documentation and the assessment and plan as written. Number of minutes spent on the visit:20 Time with Patient: Greater than 30
[2024-12-28 06:07] LABS: Glucose,Whole Blood 176 mg/dL (70-110)
[2024-12-28] MEDS: FUROSEMIDE 20 MG TAB PO SCH (08:31)
[2024-12-28] MEDS: HYDROcodone/APAP 5-325MG 1 EACH TAB PO PRN (08:32)
[2024-12-28] MEDS: predniSONE 20 MG TAB PO SCH (08:32)
[2024-12-28] MEDS: SYMBICORT 160-4.5 MCG INHALER INHALATION SCH (08:38)
[2024-12-28] MEDS: IPRATROPIUM-ALBUTEROL 3 ML NEB INHALATION SCH (08:38)
[2024-12-28] MEDS ORDERED: ALBUTEROL HFA INHALER INHALATION PRN (09:27)
[2024-12-28] MEDS ORDERED: NITROGLYCERIN SL TABS 0.4 MG TAB SUBLINGUAL PRN (09:27)
[2024-12-28] MEDS ORDERED: ALPRAZolam 0.25 MG TAB PO PRN (09:27)
[2024-12-28] MEDS ORDERED: IPRATROPIUM-ALBUTEROL 3 ML NEB INHALATION PRN (09:27)
[2024-12-28] MEDS: TAMSULOSIN 0.4 MG CAP.ER.24H PO SCH (09:50)
[2024-12-28] MEDS: lisinopriL 10 MG TAB PO SCH (09:50)
[2024-12-28] MEDS: busPIRone HCl 10 MG TAB PO SCH (09:50)
[2024-12-28] MEDS: GABAPENTIN 300 MG CAP PO SCH (09:50)
[2024-12-28] MEDS: lamoTRIgine 100 MG TAB PO SCH (09:50)
[2024-12-28] MEDS: VENLAFAXINE HCL ER 150 MG CAP PO SCH (09:50)
[2024-12-28] MEDS: FAMOTIDINE 20 MG TAB PO SCH (09:50)
[2024-12-28] MEDS: LEVOTHYROXINE 75 MCG TAB PO SCH (09:50)
[2024-12-28] MEDS: guaiFENesin 600 MG TABLET.ER PO SCH (09:50)
[2024-12-28] MEDS: amLODIPine 5 MG TAB PO SCH (09:50)
[2024-12-28] MEDS: METOPROLOL TARTRATE 25 MG TAB PO SCH (09:54)
[2024-12-28] MEDS: DIVALPROEX ER 250 MG TAB.ER.24H PO SCH (10:38)
[2024-12-28 11:08] LABS: Glucose,Whole Blood 111 mg/dL (70-110)
[2024-12-28] MEDS ORDERED: IPRATROPIUM-ALBUTEROL 3 ML NEB INHALATION SCH (12:00)
[2024-12-28] MEDS ORDERED: RX INFO: IV CONTRAST WAS GIVEN 1 EACH MISC MISCELLANE PRN (13:39)
--- NOTE | 2024-12-28 15:01 | CT ---
CT chest with contrast. HISTORY: Pneumonia and COPD COMPARISON: CTA chest dated 06/01/2024 TECHNIQUE: Multiple axial images were obtained through the tho rax following the uneventful administration of nonionic IV contrast material. FINDINGS: There is a 2.6 cm solid nodule in the right thyroid gland. Ultrasound is recommended. Biopsy may be i ndicated. There is an ill-defined partially consolidated infiltrate in the right lung base. There is a small in filtrate or atelectasis in the left lung base. There is a small right pleural effusion. There are no suspicious lung masses or nodules. The great vessels the chest are normal. There is mild to moderate cardiomegaly. There is no mediastinal, hilar or axillary adenopathy. There is no pulmonary embolus. Limited scanning of the upper abdomen reveals postsurgical changes in the stomach and GE junction No focal osseous lesions are seen. IMPRESSION: 1. Bibasilar infiltrates, right greater than left. Findings could represent aspiration or pneumonia. 2. Small right pleural effusion. 3. Mild to moderate cardiomegaly. 4. 2.6 cm solid nodule in the right thyroid gland. Ultrasound is recommended. Biopsy may be indicated . [facility], , 12/28/2024 2:59 PM
[2024-12-28] MEDS: CEFTAZIDIME/AVIBACTAM 2.5 GM in SODIUM CHLORIDE 0.9% 100 ML IVPB SCH (15:16)
--- NOTE | 2024-12-28 16:17 | XR ---
EXAMINATION TYPE: XR knee limited RT DATE OF EXAM: 12/28/2024 4:13 PM COMPARISON: 03/24/2024 CLINICAL INDICATION: Female, 69 years old with history of Right knee pain, falls; PHH, pain TECHNIQUE: XR knee limited RT 2 views submitted. FINDINGS: No evidence of any acute osseous pathology or soft tissue swelling. IMPRESSION: 1. No acute osseous pathology. 2. Mild tricompartmental osteoarthritic changes. [facility], , 12/28/2024 4:14 PM
[2024-12-28 16:39] LABS: Glucose,Whole Blood 211 mg/dL (70-110)
[2024-12-28] MEDS: MONTELUKAST 10 MG TAB PO SCH (20:27)
[2024-12-28] MEDS: clonazePAM 0.5 MG TAB PO SCH (20:28)
--- NOTE | 2024-12-28 20:42 | HP ---
HISTORY AND PHYSICAL CHIEF COMPLAINT: Shortness of breath. HISTORY OF PRESENT ILLNESS: This 69-year-old woman with a past medical history of multiple medical problems including COPD, was recently discharged from the hospital. The patient's sputum was positive for Pseudomonas. The patient is on oral antibiotics. The chest x-ray showed bilateral shadows indicative of possible atelectasis versus pneumonia. The blood pressure is also elevated. Pulmonary has seen the patient. Recommend continued monitoring. PAST MEDICAL HISTORY: History of COPD. Rest of the history and chart is also reviewed. HOME MEDICATIONS: Reviewed, include prednisone. Doses and rest of medications reviewed. ALLERGIES: Codeine. Rest of allergies are reviewed. FAMILY HISTORY: History of CHF in the family. SOCIAL HISTORY: Previous history of smoking, THC. REVIEW OF SYSTEMS: A 14-point review of systems is negative, except as mentioned earlier. PHYSICAL EXAMINATION: VITAL SIGNS: Pulse is 71, blood pressure 130/66, and respirations 18. HEENT: Conjunctivae are normal. NECK: No JVD. CARDIOVASCULAR: S1, S2. RESPIRATIONS: Bilateral scattered rhonchi and crackles. ABDOMEN: Soft, nondistended. LEGS: No edema. NERVOUS SYSTEM: No focal deficit. LABORATORY DATA: Accu-Cheks noted. ASSESSMENT: 1. Chronic obstructive pulmonary disease acute exacerbation with possible bilateral pneumonia left more than right Pseudomonas. 2. Diabetes mellitus, type 2, uncontrolled with no evidence of acute acidosis, present on admission. 3. Elevated WBC. 4. History of asthma. 5. History of congestive heart failure. 6. History of chronic obstructive pulmonary disease. 7. Hypertension. 8. History of pulmonary embolus. 9. Multiple complex medical issues. RECOMMENDATIONS AND DISCUSSION: This 69-year-old woman presented with multiple complex medical issues. We will monitor the patient closely. We would recommend broad-spectrum IV antibiotics, bronchodilators, steroids. Monitor blood sugars closely, closely follow with Pulmonary. Guarded prognosis. Further recommendations to follow. MMODL / IJN: [id number] /
[2024-12-28] MEDS ORDERED: LEVOFLOXACIN 750 MG TAB PO SCH (21:00)
[2024-12-28] MEDS: OLANZapine 7.5 MG TAB PO SCH (21:09)
[2024-12-28 23:54] LABS: Glucose,Whole Blood 259 mg/dL (70-110)
[2024-12-29 06:16] LABS: Glucose,Whole Blood 44 mg/dL (70-110)
[2024-12-29 06:35] LABS: Glucose,Whole Blood 93 mg/dL (70-110)
[2024-12-29] MEDS ORDERED: SYMBICORT 160-4.5 MCG INHALER INHALATION SCH (08:00)
--- NOTE | 2024-12-29 10:01 | P.CONS ---
History of Present Illness - Reason for Consult Consult date: 12/28/24 Multidrug-resistant Pseudomonas in sputum Requesting physician: Megan Esparza - Chief Complaint Shortness of breath and cough x few days - History of Present Illness Patient is a 69-year-old female with a past medical history significant for Asthma, Heart Failure, COPD, Fibromyalgia, GERD/Reflux, Hypertension, Osteoarthritis (OA), Pneumonia, Pulmonary Embolus (PE), Skin Disorder, Thyroid Disorder, history of recurrent pneumonia with recent outpatient culture positive for drug-resistant Pseudomonas and did have a recent discharge from this facility on 12/20/2024 patient is presenting back to the hospital concerning for increasing shortness of breath and cough that has been getting worse for the last few days patient cough is moderate intensity bringing some sputum denies hemoptysis patient denies having any nausea vomiting no choking on the food no abdominal pain or any diarrhea denies high-grade fever on presentation to the hospital patient was afebrile no fever have recorded subsequently patient was not tachycardic or hypotensive she was hypoxic req uiring supplemental oxygen patient did have a white count of 21.47 creatinine 0.61 lactic acid 3.3 liver enzymes are normal patient did have a chest x-ray opacity in the right lower lobe subsequently did have a CT of the chest which shows bibasilar infiltrate right greater than the left finding could represent aspiration or pneumonia patient was started on Levaquin however with the last sputum culture positive for drug-resistant Pseudomonas infectious disease was consulted for further management of antibiotic therapy Review of Systems Positive point and negatives has been mentioned in the HPI, complete review of systems was performed and all other systems are negative Past Medical History Past Medical History: Asthma, Heart Failure, COPD, Fibromyalgia, GERD/Reflux, Hypertension, Osteoarthritis (OA), Pneumonia, Pulmonary Embolus (PE), Skin Disorder, Thyroid Disorder Additional Past Medical History / Comment(s): Spinal Stenosis, Cervical disc disease/stenosis, scoliosis, numbness/tingling L side of face/neck, hx of L hemidiaphragmatic elevation-possibly genetic, recently bronchitis and past bronchitis, electrolyte problem/kidney function being affected, hx of pulmonary emboli, past bilateral lower extremity cellulitis, edema lower extremities, IBS, hemorrhoids, benign colon polyps, sinus problems, UTIs, bacteremia/sepsis, cardiac murmur, past L ankle and L wrist fractures. History of Any Multi-Drug Resistant Organisms: MRSA, Other MDRO Year Discovered:: 12/19/24-Other MDRO; 11/27/24-MRSA MDRO Source:: Other MDRO-sputum; MRSA-sputum, knee Past Surgical History: Bariatric Surgery, Section, Cholecystectomy, Hysterectomy, Tonsillectomy Additional Past Surgical History / Comment(s): EGD, colonoscopies, gastric bypass, surgery for deviated septum, left cataract removal (having laser procedure on that eye 11/24/23) Past Anesthesia/Blood Transfusion Reactions: Previous Problems w/ Anesthesia Additional Past Anesthesia/Blood Transfusion Reaction / Comm: itching after hysterectomy, some kind of breathing problem after gastric bypass-not sure what happened Past Psychological History: Anxiety, Bipolar, Depression, Panic Disorder Additional Psychological History / Comment(s): . Smoking Status: Current every day smoker Past Alcohol Use History: None Reported Additional Past Alcohol Use History / Comment(s): Pt started smoking in 1986 and quit when she went into [facility] 08/2021, started again and smokes about half a pack a day. Past Drug Use History: Marijuana Additional Drug Use History / Comment(s): occassional cannabis use per pt - Past Family History Mother Family Medical History: Congestive Heart Failure (CHF), Hypertension Father History Unknown: Yes Additional Family Medical History / Comment(s): Father at the age of 45 yrs d/t having had rheumatic fever as a child and heart valve disease. Medications and Allergies Home Medications Medication Instructions Recorded Confirmed Type Montelukast [Singulair] 10 mg PO HS 12/17/13 12/28/24 History Levothyroxine Sodium [Synthroid] 150 mcg PO DAILY 03/29/20 12/28/24 History Famotidine [Pepcid] 20 mg PO BID 09/03/21 12/28/24 History Tamsulosin [Flomax] 0.4 mg PO DAILY 10/26/21 12/28/24 History Ipratropium-Albuterol Nebulize 3 ml INHALATION RT-QID 11/13/22 12/28/24 History [Duoneb 0.5 mg-3 mg/3 ml Soln] Albuterol Inhaler [Ventolin Hfa 2 puff INHALATION RT-QID PRN #1 11/17/2212/28 Rx Inhaler] each clonazePAM [KlonoPIN ODT] 0.25 mg PO HS 12/12/23 12/28/24 History lamoTRIgine [LaMICtal] 100 mg PO BID 03/18/24 12/28/24 History Metoprolol Tartrate [Lopressor] 25 mg PO BID 05/16/24 12/28/24 History Divalproex ER [Depakote ER] 250 mg PO BID #60 tab 05/26/24 12/28/24 Rx Gabapentin 300 mg PO TID 06/01/24 12/28/24 History busPIRone HCL [Buspar] 30 mg PO BID 06/09/24 12/28/24 History Fluticasone/Umeclidin/Vilanter 1 puff INHALATION RT-DAILY 10/17/24 12/28/24 H istory [Trelegy Ellipta 200-62.5-25] OLANZapine 15 mg PO HS 10/17/24 12/28/24 History Venlafaxine HCl [Effexor XR] 150 mg PO DAILY 10/17/24 12/28/24 History amLODIPine [Norvasc] 5 mg PO BID 30 Days #60 tab 10/21/24 12/28/24 Rx lisinopriL [Zestril] 10 mg PO DAILY 30 Days #30 tab 10/21/24 12/28/24 Rx Nitroglycerin Sl Tabs [Nitrostat] 0.4 mg SUBLINGUAL Q5M PRN #20 tab 11/30/24 12/28/24 Rx Furosemide [Lasix] 20 mg PO DAILY 12/11/24 12/28/24 History HYDROcodone/APAP 5-325MG [[place] 1 tab PO BID PRN 12/11/24 12/28/24 History 5-325] guaiFENesin [Mucinex] 600 mg PO BID 12/24/24 12/28/24 History Ipratropium-Albuterol Nebulize 3 ml INHALATION RT-Q4H PRN each 12/26/24 Rx [Duoneb 0.5 mg-3 mg/3 ml Soln] predniSONE See Taper PO DIRECTED #30 tab 12/26/24 12/28/24 Rx ALPRAZolam [Xanax] 0.25 mg PO BID PRN 5 Days #10 tab 12/27/24 12/28/24 Rx Azithromycin [Zithromax] 500 mg PO DIRECTED 12/28/24 12/28/24 History Allergies Allergy/AdvReac Type Severity Reaction Status Date / Time codeine Allergy Unknown Verified 12/28/24 09:13 Childhood Penicillins Allergy Rash/Hives Verified 12/28/24 09:13 Sulfa (Sulfonamide Allergy Rash/Hives Verified 12/28/24 09:13 Antibiotics) Physical Exam Vitals: Vital Signs Temp Pulse Pulse Resp BP BP Pulse Ox 12/28/24 13:23 99.1 F 79 20 135/53 92 L 12/28/24 12:40 85 12/28/24 12:30 86 12/28/24 08:49 71 12/28/24 08:43 94 L 12/28/24 08:38 71 12/28/24 07:10 97.8 F 71 18 135/63 98 12/28/24 05:01 97.6 F 71 22 107/51 98 12/28/24 02:15 67 14 119/52 96 12/27/24 23:11 71 20 115/47 94 L 12/27/24 23:08 68 12/27/24 22:56 75 12/27/24 22:09 75 91 L 12/27/24 22:05 97.7 F 77 24 121/56 91 L Intake and Output 12/27/24 12/28/24 12/28/24 22:59 06:59 14:59 Other: Voiding Method Bedside Commode Weight 84.822 kg 84.822 kg GENERAL DESCRIPTION: Elderly female lying in bed, no distress. No tachypnea or accessory muscle of respiration use. HEENT: Shows Pallor , no scleral icterus. Oral mucous membrane is dry. NECK: Trachea central, no thyromegaly. LUNGS: Unlabored breathing. Coarse breath sounds right side HEART: S1, S2, regular rate and rhythm. No loud murmur ABDOMEN: Soft, no tenderness , guarding or rigidity, no organomegaly EXTREMITIES: No edema of feet. SKIN: No rash, no masses palpable. NEUROLOGICAL: The patient is awake, alert, oriented x3, mood and affect normal. Results CBC & Chem 7: 12/27/24 22:08 12/27/24 22:08 Labs: Abnormal Lab Results - Last 24 Hours (Table) 12/27/24 12/27/24 12/27/24 Range/Units 22:08 22:08 22:08 WBC 21.47 H (4.50-10.00) 10*3/uL RBC 3.72 L (4.10-5.20) 10*6/uL Hgb 11.3 L (12.0-15.0) g/dL Hct 36.2 L (37.2-46.3) % MCV 97.3 H (80.0-97.0) fL MCHC 31.2 L (32.0-37.0) g/dL Immature Gran # 0.39 H (0.00-0.04) 10*3/uL Neutrophils # 19.39 H (1.80-7.70) 10*3/uL Lymphocytes # 0.31 L (0.90-5.00) 10*3/uL Monocytes # 1.33 H (0.20-1.00) 10*3/uL Eosinophils # 0.00 L (0.04-0.35) 10*3/uL Sodium 129 L (137-145) mmol/L Chloride 92 L (98-107) mmol/L Carbon Dioxide 31 H (22-30) mmol/L BUN 38 H (7-17) mg/dL Glucose 592 H* (74-99) mg/dL POC Glucose (mg/dL) (70-110) mg/dL Hemoglobin A1c (<=6.0) % Plasma Lactic Acid Joel 3.3 H* (0.7-2.0) mmol/L Total Protein 5.5 L (6.3-8.2) g/dL Albumin 3.4 L (3.5-5.0) g/dL 12/27/24 12/27/24 12/28/24 Range/Units 22:08 23:45 00:53 WBC (4.50-10.00) 10*3/uL RBC (4.10-5.20) 10*6/uL Hgb (12.0-15.0) g/dL Hct (37.2-46.3) % MCV (80.0-97.0) fL MCHC (32.0-37.0) g/dL Immature Gran # (0.00-0.04) 10*3/uL Neutrophils # (1.80-7.70) 10*3/uL Lymphocytes # (0.90-5.00) 10*3/uL Monocytes # (0.20-1.00) 10*3/uL Eosinophils # (0.04-0.35) 10*3/uL Sodium (137-145) mmol/L Chloride (98-107) mmol/L Carbon Dioxide (22-30) mmol/L BUN (7-17) mg/dL Glucose (74-99) mg/dL POC Glucose (mg/dL) 492 H 396 H (70-110) mg/dL Hemoglobin A1c 7.7 H (<=6.0) % Plasma Lactic Acid Joel (0.7-2.0) mmol/L Total Protein (6.3-8.2) g/dL Albumin (3.5-5.0) g/dL 12/28/24 12/28/24 12/28/24 Range/Units 02:44 03:38 04:35 WBC (4.50-10.00) 10*3/uL RBC (4.10-5.20) 10*6/uL Hgb (12.0-15.0) g/dL Hct (37.2-46.3) % MCV (80.0-97.0) fL MCHC (32.0-37.0) g/dL Immature Gran # (0.00-0.04) 10*3/uL Neutrophils # (1.80-7.70) 10*3/uL Lymphocytes # (0.90-5.00) 10*3/uL Monocytes # (0.20-1.00) 10*3/uL Eosinophils # (0.04-0.35) 10*3/uL Sodium (137-145) mmol/L Chloride (98-107) mmol/L Carbon Dioxide (22-30) mmol/L BUN (7-17) mg/dL Glucose (74-99) mg/dL POC Glucose (mg/dL) 392 H 322 H 239 H (70-110) mg/dL Hemoglobin A1c (<=6.0) % Plasma Lactic Acid Joel (0.7-2.0) mmol/L Total Protein (6.3-8.2) g/dL Albumin (3.5-5.0) g/dL 12/28/24 12/28/24 Range/Units 06:05 11:07 WBC (4.50-10.00) 10*3/uL RBC (4.10-5.20) 10*6/uL Hgb (12.0-15.0) g/dL Hct (37.2-46.3) % MCV (80.0-97.0) fL MCHC (32.0-37.0) g/dL Immature Gran # (0.00-0.04) 10*3/uL Neutrophils # (1.80-7.70) 10*3/uL Lymphocytes # (0.90-5.00) 10*3/uL Monocytes # (0.20-1.00) 10*3/uL Eosinophils # (0.04-0.35) 10*3/uL Sodium (137-145) mmol/L Chloride (98-107) mmol/L Carbon Dioxide (22-30) mmol/L BUN (7-17) mg/dL Glucose (74-99) mg/dL POC Glucose (mg/dL) 176 H 111 H (70-110) mg/dL Hemoglobin A1c (<=6.0) % Plasma Lactic Acid Joel (0.7-2.0) mmol/L Total Protein (6.3-8.2) g/dL Albumin (3.5-5.0) g/dL Assessment and Plan (1) Sepsis Current Visit: Yes Status: Acute Code(s): A41.9 - SEPSIS, UNSPECIFIED ORGANI SM SNOMED Code(s): 79026623 (2) Pseudomonas aeruginosa infection Current Visit: Yes Status: Acute Code(s): A49.8 - OTHER BACTERIAL INFECTIONS OF UNSPECIFIED SITE SNOMED Code(s): 96224345 (3) Pneumonia Current Visit: Yes Status: Acute Code(s): J18.9 - PNEUMONIA, UNSPECIFIED ORGANISM SNOMED Code(s): 367773215 (4) Allergy to multiple antibiotics Current Visit: No Status: Acute Code(s): Z88.1 - ALLERGY STATUS TO OTHER ANTIBIOTIC AGENTS SNOMED Code(s): 908054017 Plan: 1patient presented the hospital with sepsis in this patient who did have fever elevated lactic acid meeting criteria for SIRS/sepsis source is right lower lobe pneumonia with recent sputum culture positive for a drug-resistant Pseudomonas aeruginosa 2-patient with multiple antibiotic ALLERGIES that would limit the number of antibiotic safe to use 3we will discontinue Levaquin. 4patient to be started on Avycaz while waiting for the current sputum culture results to be finalized We will follow on clinical condition and cultures to further adjust medication if needed Thank you for this consultation we will follow the patient along with you Dictation was produced using [employer] dictation software. please excuse any grammatical, word or spelling errors. Time with Patient: Greater than 30
[2024-12-29] MEDS: ONDANSETRON 4 MG/2 ML VIAL IVP PRN (10:50)
--- NOTE | 2024-12-29 11:21 | P.CNOR ---
History of Present Illness - [facility] Consult date: 12/29/24 Consult reason: joint pain History of present illness: We are requested for consult regarding patient's right knee pain, she has had a recent fall and she notes some pain to her right knee when she was admitted to the hospital yesterday however this was more of a spasm in nature and has resolved considerably since her admission. Denies any issues with range of motion or instability to the right knee. Currently she is being managed for suspected pneumonia and issues related to COPD. Review of Systems Shortness of breath and right knee pain Past Medical History Past Medical History: Asthma, Heart Failure, COPD, Fibromyalgia, GERD/Reflux, Hypertension, Osteoarthritis (OA), Pneumonia, Pulmonary Embolus (PE), Skin Disorder, Thyroid Disorder Additional Past Medical History / Comment(s): Spinal Stenosis, Cervical disc disease/stenosis, scoliosis, numbness/tingling L side of face/neck, hx of L hemidiaphragmatic elevation-possibly genetic, recently bronchitis and past bronchitis, electrolyte problem/kidney function being affected, hx of pulmonary emboli, past bilateral lower extremity cellulitis, edema lower extremities, IBS, hemorrhoids, benign colon polyps, sinus problems, UTIs, bacteremia/sepsis, cardiac murmur, past L ankle and L wrist fractures. History of Any Multi-Drug Resistant Organisms: MRSA, Other MDRO Year Discovered:: 12/19/24-Other MDRO; 11/27/24-MRSA MDRO Source:: Other MDRO-sputum; MRSA-sputum, knee Past Surgical History: Bariatric Surgery, Section, Cholecystectomy, Hysterectomy, Tonsillectomy Additional Past Surgical History / Comment(s): EGD, colonoscopies, gastric bypass, surgery for deviated septum, left cataract removal (having laser procedure on that eye 11/24/23) Past Anesthesia/Blood Transfusion Reactions: Previous Problems w/ Anesthesia Additional Past Anesthesia/Blood Transfusion Reaction / Comm: itching after hysterectomy, some kind of breathing problem after gastric bypass-not sure what happened Past Psychological History: Anxiety, Bipolar, Depression, Panic Disorder Additional Psychological History / Comment(s): . Smoking Status: Current every day smoker Past Alcohol Use History: None Reported Additional Past Alcohol Use History / Comment(s): Pt started smoking in 1986 and quit when she went into [facility] 08/2021, started again and smokes about half a pack a day. Past Drug Use History: Marijuana Additional Drug Use History / Comment(s): occassional cannabis use per pt - Past Family History Mother Family Medical History: Congestive Heart Failure (CHF), Hypertension Father History Unknown: Yes Additional Family Medical History / Comment(s): Father at the age of 45 yrs d/t having had rheumatic fever as a child and heart valve disease. Medications and Allergies Home Medications Medication Instructions Recorded Confirmed Type Montelukast [Singulair] 10 mg PO HS 12/17/13 12/28/24 History Levothyroxine Sodium [Synthroid] 150 mcg PO DAILY 03/29/20 12/28/24 History Famotidine [Pepcid] 20 mg PO BID 09/03/21 12/28/24 History Tamsulosin [Flomax] 0.4 mg PO DAILY 10/26/21 12/28/24 History Ipratropium-Albuterol Nebulize 3 ml INHALATION RT-QID 11/13/22 12/28/24 History [Duoneb 0.5 mg-3 mg/3 ml Soln] Albuterol Inhaler [Ventolin Hfa 2 puff INHALATION RT-QID PRN #1 11/17/22 12/28/24 Rx Inhaler] each clonazePAM [KlonoPIN ODT] 0.25 mg PO HS 12/12/23 12/28/24 History lamoTRIgine [LaMICtal] 100 mg PO BID 03/18/24 12/28/24 History Metoprolol Tartrate [Lopressor] 25 mg PO BID 05/16/24 12/28/24 History Divalproex ER [Depakote ER] 250 mg PO BID #60 tab 05/26/24 12/28/24 Rx Gabapentin 300 mg PO TID 06/01/24 12/28/24 History busPIRone HCL [Buspar] 30 mg PO BID 06/09/24 12/28/24 History Fluticasone/Umeclidin/Vilanter 1 puff INHALATION RT-DAILY 10/17/24 12/28/24 History [Trelegy Ellipta 200-62.5-25] OLANZapine 15 mg PO HS 10/17/24 12/28/24 History Venlafaxine HCl [Effexor XR] 150 mg PO DAILY 10/17/24 12/28/24 History amLODIPine [Norvasc] 5 mg PO BID 30 Days #60 tab 10/21/24 12/28/24 Rx lisinopriL [Zestril] 10 mg PO DAILY 30 Days #30 tab 10/21/24 12/28/24 Rx Nitroglycerin Sl Tabs [Nitrostat] 0.4 mg SUBLINGUAL Q5M PRN #20 tab 11/30/24 12/28/24 Rx Furosemide [Lasix] 20 mg PO DAILY 12/11/24 12/28/24 History HYDROcodone/APAP 5-325MG [[place] 1 tab PO BID PRN 12/11/24 12/28/24 History 5-325] guaiFENesin [Mucinex] 600 mg PO BID 12/24/24 12/28/24 History Ipratropium-Albuterol Nebulize 3 ml INHALATION RT-Q4H PRN each 12/26/24 12/28/24 Rx [Duoneb 0.5 mg-3 mg/3 ml Soln] predniSONE See Taper PO DIRECTED #30 tab 12/26/24 12/28/24 Rx ALPRAZolam [Xanax] 0.25 mg PO BID PRN 5 Days #10 tab 12/27/24 12/28/24 Rx Azithromycin [Zithromax] 500 mg PO DIRECTED 12/28/24 12/28/24 History Allergies Allergy/AdvReac Type Severity Reaction Status Date / Time codeine Allergy Unknown Verified 12/28/24 09:13 Childhood Penicillins Allergy Rash/Hives Verified 12/28/24 09:13 Sulfa (Sulfonamide Allergy Rash/Hives Verified 12/28/24 09:13 Antibiotics) Physical Examination On exam of the right knee her skin is intact she does have some areas of ration scarring There is no swelling or effusion She has full range of motion to the right knee No instability Mild tenderness around the medial and lateral joint lines Patient intact throughout the right lower extremity Brisk capillary refill noted to the right foot Results - Labs Labs: Abnormal Lab Results - Last 24 Hours (Table) 12/28/24 12/28/24 12/29/24 Range/Units 16:37 23:52 06:14 POC Glucose (mg/dL) 211 H 259 H 44 L* (70-110) mg/dL Microbiology - Last 24 Hours (Table) 12/28/24 15:20 Gram Stain - Preliminary Sputum Sputum Culture - Preliminary H & H 12/27/24 Range/Units 22:08 Hgb 11.3 L (12.0-15.0) g/dL Hct 36.2 L (37.2-46.3) % Result Diagrams: 12/27/24 22:08 12/27/24 22:08 - Diagnostic results Knee x-ray: image reviewed (Imaging shows no acute fractures or dislocations, these are nonweightbearing images but only mild degenerative changes are noted) Assessment and Plan Assessment: Right knee pain secondary to muscle spasms Plan: Weightbearing as tolerated right lower extremity Multimodal pain regimen, would recommend lidocaine patches for ongoing knee pain PT/OT evaluation for gait training in light of recent fall Patient may follow-up with our office on an as-needed basis for any persistent knee pain
[2024-12-29 11:31] LABS: Glucose,Whole Blood 101 mg/dL (70-110)
[2024-12-29 11:46] LABS: ALT 40 U/L (4-34); AST 26 U/L (14-36); African American GFR (CKD) >90 (>60 ml/min/1.73 sqM); Albumin 3.4 g/dL (3.5-5.0); Albumin/Globulin Ratio 1.6; Alkaline Phosphatase 72 U/L (38-126); Blood Urea Nitrogen 20 mg/dL (7-17); Calcium 9.6 mg/dL (8.4-10.2); Chloride 91 mmol/L (98-107); Globulin 2.1 g/dL; Glucose 72 mg/dL (74-99); Magnesium 1.7 mg/dL (1.6-2.3); Non-African American GFR(CKD) >90 (>60 ml/min/1.73 sqM); Potassium 3.9 mmol/L (3.5-5.1); Sodium 134 mmol/L (137-145); Total Bilirubin 0.5 mg/dL (0.2-1.3); Total Protein 5.5 g/dL (6.3-8.2)
[2024-12-29 11:53] LABS: Anion Gap 6 mmol/L
[2024-12-29 12:05] LABS: Carbon Dioxide 37 mmol/L (22-30)
[2024-12-29] MEDS: INSULIN LISPRO (HumaLOG) 100 UNIT/ML 10 mL VL SQ SCH (12:17)
--- NOTE | 2024-12-29 14:24 | P.PN ---
Subjective Progress Note Date: 12/29/24 Patient is evaluated on the medical floor. She came back into the hospital because of a fall with right knee pain. Imaging reveals no acute fracture or dislocation as well as no joint effusion. She was evaluated by orthopedics because of this and the pain to her knee has essentially resolved. They are recommending a lidocaine patch as needed and follow-up with orthopedics on discharge. Patient continues on IV Zerbaxa for the positive sputum culture with pseudomonas and ID is following closely. She reports continued sputum production thick in nature. Was also having episodes of emesis although reports that she has not had a good sized bowel movement in the last 5 days. She does not want any rectal medications or any liquid laxatives. She states that she like to only try a pill for her constipation at this time. This may not be that effective however we will follow-up with the patient if she is still unable to have a bowel movement. Labs today reviewed sodium level of 134 potassium 3.9, BUN of 20 creatinine of 0.47. Blood glucose of 101. She is taken off of the long-acting insulin and will continue only on sliding scale as needed as she is having episodes of hypoglycemia. She continues on oral prednisone. Her white blood cell count is currently pending from today. She will require rehab on discharge. Review of Systems Constitutional: Denied any fatigue denied any fever. Cardio vascular: denied any chest pain, palpitations Gastrointestinal: denied any nausea, vomiting, diarrhea Reports constipation Pulmonary: Reports shortness of breath, reports cough and sputum production Neurologic denied any new focal deficits All inpatient medications were reviewed and appropriate changes in these medications as dictated in the interval history and assessment and plan. PHYSICAL EXAMINATION: GENERAL: The patient is alert and oriented x3, not in any acute distress. Well developed, well nourished. HEENT: Pupils are round and equally reacting to light. EOMI. No scleral icterus. No conjunctival pallor. Normocephalic, atraumatic. No pharyngeal erythema. No thyromegaly. CARDIOVASCULAR: S1 and S2 present. No murmurs, rubs, or gallops. PULMONARY: Coarse ronchi throughout ABDOMEN: Soft, nontender, nondistended, Hypoactive bowel sounds. No palpable organomegaly. MUSCULOSKELETAL: No joint swelling or deformity. Right knee pain. EXTREMITIES: No cyanosis, clubbing, or pedal edema. NEUROLOGICAL: Gross neurological examination did not reveal any focal deficits. Generalized weakness SKIN: No rashes. Assessment -Fall with right knee pain -Weakness and medical debility requiring ERIBERTO on discharge -Acute on chronic hypoxic/Hypercapnic respiratory failure and chronically wears 3 L outpatient -Pneumonia, present on admission -Leukocytosis secondary to above -Sputum culture positive for drug-resistant Pseudomonas; positive for MRSA back in November 2024 -Hyponatremia, hypovolemic improving -Hyperglycemia treated with long-acting insulin and now hypoglycemic -Lactic acidosis -Acute exacerbation COPD -Constipation -Hypertension -Anxiety/depression/bipolar disorder -Hypothyroidism -Obesity with a BMI of 36.8 -Continued ongoing nicotine dependence -History of mediastinal lymphadenopathy -Fibromyalgia and chronic pain syndrome -Diabetes Mellitus type 2 hemoglobin A1C 7.7. -Bipolar -THC use -GI prophylaxis -DVT prophylaxis Plan Continue IV zerbaxa with ID following Continue Duonebs scheduled and PRN Continue oral prednisone Stop lantus and continue accuchecks ACHS and sliding scale insulin Patient has no documented history of diabetes however has had multiple and frequent hospitalizations for COPD/Pneumonia and has been maintained on steroids frequently over the last few months this is likely contributing to her elevated hemoglobin A1C of 7.7. Will adjust medications as needed and continue with close monitoring of her blood glucose Orthopedics following pRN and recommending lidocaine patch for the right knee and PT eval, outpatient follow up Pulmonology following Add dulcolax daily Social work following for DC planning will require authorization has not been started yet due to the current IV antibiotics and awaiting recommendations for DC by infectious disease The impression and plan of care has been dictated by Casandra Jimenez, Nurse Practitioner as directed. Dr. Micky MD I have performed a history and physical examination and medical decision making of this patient, discussed the same with the dictator, and agree with the dictators assessment and plan as written, documented as a scribe. Based on total visit time, I have performed more than 50% of this visit. Objective - Vital Signs Vital signs: Vital Signs Temp 98.0 F 12/29/24 12:49 Pulse 82 12/29/24 13:05 Resp 16 12/29/24 12:49 BP 121/70 12/29/24 12:49 Pulse Ox 91 L 12/29/24 12:49 FiO2 Intake & Output 12/28/24 12/29/24 12/29/24 18:59 06:59 18:59 Output Total 500 Balance -500 Output: Urine 500 Other: Voiding Method Bedside Commode Bedside Commode Bedside Commode # Voids 5 3 1 - Labs CBC & Chem 7: 12/27/24 22:08 12/29/24 11:03 Labs: Abnormal Lab Results - Last 24 Hours (Table) 12/28/24 12/28/24 12/29/24 Range/Units 16:37 23:52 06:14 Sodium (137-145) mmol/L Chloride (98-107) mmol/L Carbon Dioxide (22-30) mmol/L BUN (7-17) mg/dL Creatinine (0.52-1.04) mg/dL Glucose (74-99) mg/dL POC Glucose (mg/dL) 211 H 259 H 44 L* (70-110) mg/dL ALT (4-34) U/L Total Protein (6.3-8.2) g/dL Albumin (3.5-5.0) g/dL 12/29/24 Range/Units 11:03 Sodium 134 L (137-145) mmol/L Chloride 91 L (98-107) mmol/L Carbon Dioxide 37 H (22-30) mmol/L BUN 20 H (7-17) mg/dL Creatinine 0.47 L (0.52-1.04) mg/dL Glucose 72 L (74-99) mg/dL POC Glucose (mg/dL) (70-110) mg/dL ALT 40 H (4-34) U/L Total Protein 5.5 L (6.3-8.2) g/dL Albumin 3.4 L (3.5-5.0) g/dL Microbiology - Last 24 Hours (Table) 12/28/24 15:20 Gram Stain - Preliminary Sputum Sputum Culture - Preliminary Assessment and Plan Time with Patient: Greater than 30
[2024-12-29] MEDS: bisacodyL 5 MG TABLET.DR PO SCH (15:13)
--- NOTE | 2024-12-29 16:03 | P.PN ---
Subjective Progress Note Date: 12/29/24 Pulmonary consultation was requested. Readmission less than 24 hours for acute COPD exacerbation. Recently discharged from the hospital less than 24 hours ago on a steroid taper with Levaquin to be completed at home. Her sputum was previously positive for Pseudomonas aeruginosa. When she got home, she developed some respiratory distress and states she could not catch her breath. She continues to have congested nonproductive cough. Workup in the emergency department including repeat chest showing mostly chronic findings. Left hemidiaphragm elevation, right lung linear atelectasis. Labs include a CBC with a WBC count of 21.5 which is trending down, hemoglobin 11.3 g/dL, platelets 282. CMP: Sodium 129, potassium 4.5, chloride 92, serum bicarb 31, BUN 38, creatinine 0.61, glucose 592. Magnesium 1.9. Lactic was 3.3 and is down to 2. NT proBNP 2780. Patient currently being evaluated emergency department. She is sitting up in bed, on 3 L/min nasal cannula which she wears at home. Does not appear to be any respiratory distress. Continues to have congested cough. No significant sputum production, hemoptysis, chest pain, fevers or chills. No lower extremity edema, chest pain, heart palpitations, or syncope. Did receive a one-time dose of Levaquin in the ED. Normal saline infusing at 75 mL/h. Also, her prednisone taper was resumed. Most recent [id number] glucose down to 239. Current vital signs: Temperature 97.6 F, heart rate 71 bpm, blood pressure 107/51 mmHg, nontachypneic, SpO2 recorded at 98% on 3 L/min nasal cannula. The patient was seen today December 29, 2024 in follow-up on the regular medical floor. She is currently sitting up in a chair at the bedside. Awake and alert in no acute distress. Maintaining good O2 saturations in the 90s on 3 L/min per nasal cannula. She is having some complaints of nausea today. She has a loose congested cough. Some bilateral wheezing. CT scan of the chest revealed bibasilar infiltrates right greater than left. Small right pleural effusion. Mild to moderate cardiomegaly. Sodium 134. Potassium 3.9. Bicarb 37. BUN 20. Creatinine 0.47. Glucose 72. She remains on Symbicort and Singulair. Continued on prednisone taper. Recent sputum culture reveals a resistant Pseudomonas aeruginosa. She has been initiated on Zerbaxa per ID service. Objective - Vital Signs Vital signs: Vital Signs Temp 98.0 F 12/29/24 12:49 Pulse 82 12/29/24 13:05 Resp 16 12/29/24 12:49 BP 121/70 12/29/24 12:49 Pulse Ox 91 L 12/29/24 12:49 FiO2 Intake & Output 12/28/24 12/29/24 12/29/24 18:59 06:59 18:59 Output Total 500 Balance -500 Output: Urine 500 Other: Voiding Method Bedside Commode Bedside Commode Bedside Commode # Voids 5 3 1 - Exam GENERAL EXAM: Alert, pleasant 69-year-old female, sitting up in a chair, on 3 L nasal cannula, not in any respiratory distress. HEAD: Normocephalic. EYES: Normal reaction of pupils, equal size. NOSE: Clear with pink turbinates. THROAT: No erythema or exudates. NECK: No masses, no JVD. CHEST: No chest wall deformity. LUNGS: Equal air entry with coarse rhonchi and wheeze bilaterally. CVS: S1 and S2 normal with no audible murmur, regular rhythm. ABDOMEN: No hepatosplenomegaly, normal bowel sounds, no guarding or rigidity. SPINE: No scoliosis or deformity SKIN: No rashes CENTRAL NERVOUS SYSTEM: No focal deficits, tone is normal in all 4 extremities. EXTREMITIES: There is no peripheral edema. No clubbing, no cyanosis. Peripheral pulses are intact. - Labs CBC & Chem 7: 12/27/24 22:08 12/29/24 11:03 Labs: Abnormal Lab Results - Last 24 Hours (Table) 12/28/24 12/28/24 12/29/24 Range/Units 16:37 23:52 06:14 Sodium (137-145) mmol/L Chloride (98-107) mmol/L Carbon Dioxide (22-30) mmol/L BUN (7-17) mg/dL Creatinine (0.52-1.04) mg/dL Glucose (74-99) mg/dL POC Glucose (mg/dL) 211 H 259 H 44 L* (70-110) mg/dL ALT (4-34) U/L Total Protein (6.3-8.2) g/dL Albumin (3.5-5.0) g/dL 12/29/24 Range/Units 11:03 Sodium 134 L (137-145) mmol/L Chloride 91 L (98-107) mmol/L Carbon Dioxide 37 H (22-30) mmol/L BUN 20 H (7-17) mg/dL Creatinine 0.47 L (0.52-1.04) mg/dL Glucose 72 L (74-99) mg/dL POC Glucose (mg/dL) (70-110) mg/dL ALT 40 H (4-34) U/L Total Protein 5.5 L (6.3-8.2) g/dL Albumin 3.4 L (3.5-5.0) g/dL Microbiology - Last 24 Hours (Table) 12/28/24 15:20 Gram Stain - Preliminary Sputum Sputum Culture - Preliminary Assessment and Plan Assessment: Acute COPD exacerbation Acute on chronic shortness of breath, secondary to above Sputum culture from 12/25/2024 again positive for Pseudomonas aeruginosa, quite resistant, initiated on Zerbaxa per ID service Left hemidiaphragm elevation possible paralysis Chronic obstructive pulmonary disease, with an FEV1 64% predicted, Gold stage II Chronic hypoxemic respiratory failure, secondary to combination of above Severe hyperglycemia Pseudohyponatremia, secondary to above Leukocytosis, possibly secondary to steroid use Sputum positive for MRSA 11/27/2024 Chronic ongoing tobacco dependence Hypothyroidism Hypertension History of mediastinal lymphadenopathy History of gastric bypass surgery Bipolar disorder Fibromyalgia and chronic pain syndrome Plan: The patient was seen and evaluated Chest x-ray, labs and medications reviewed Microbiology reviewed Resistant Pseudomonas in the sputum Initiated on Zerbaxa per ID service Continue DuoNeb inhalations, Symbicort, Singulair Continue a prednisone taper Continue her anxiety medications Titrate the FiO2 as tolerated We will continue to follow I have personally seen and examined the patient, performed the documentation and the assessment and plan as written. Number of minutes spent on the visit: 10 Dictation was produced using [facility] dictation software. Please excuse any grammatical, word or spelling errors.
[2024-12-29] MEDS: CEFTOLOZANE/TAZOBACTAM 3 GM in SODIUM CHLORIDE 0.9% 100 ML IV SCH (16:28)
[2024-12-29 18:28] LABS: Glucose,Whole Blood 394 mg/dL (70-110)
--- NOTE | 2024-12-29 19:34 | P.PN ---
Subjective Progress Note Date: 12/29/24 Principal diagnosis: Reason for follow-up is pneumonia MDRO Pseudomonas Patient is a 69-year-old female with a past medical history significant for Asthma, Heart Failure, COPD, Fibromyalgia, recurrent pneumonia presented to the hospital with increasing shortness of breath and cough has been diagnosed with pneumonia with recent sputum positive for drug-resistant Pseud omonas On today's evaluation it is 12/29/2024, the patient is afebrile, the patient is on 3 L nasal cannula oxygen and breathing slightly comfortably, the Pt denies having any chest pain or any worsening cough, the patient denies having any abdominal pain but did have episode of nausea and vomiting no diarrhea. Patient did have a creatinine 0.47 sputum repeat currently pending Objective - Vital Signs Vital signs: Vital Signs Temp 98.0 F 12/29/24 12:49 Pulse 88 12/29/24 16:56 Resp 16 12/29/24 12:49 BP 121/70 12/29/24 12:49 Pulse Ox 91 L 12/29/24 12:49 FiO2 Intake & Output 12/29/24 12/29/24 12/30/24 06:59 18:59 06:59 Output Total 500 Balance -500 Output: Urine 500 Other: Voiding Method Bedside Commode Bedside Commode # Voids 3 1 - Exam GENERAL DESCRIPTION: An elderly female lying in bed in no distress RESPIRATORY SYSTEM: Unlabored breathing , decreased breath sounds at bases HEART: S1 S2 regular rate and rhythm , ABDOMEN: Soft , no tenderness EXTREMITIES: No edema feet - Labs CBC & Chem 7: 12/27/24 22:08 12/29/24 11:03 Labs: Abnormal Lab Results - Last 24 Hours (Table) 12/28/24 12/29/24 12/29/24 Range/Units 23:52 06:14 11:03 Sodium 134 L (137-145) mmol/L Chloride 91 L (98-107) mmol/L Carbon Dioxide 37 H (22-30) mmol/L BUN 20 H (7-17) mg/dL Creatinine 0.47 L (0.52-1.04) mg/dL Glucose 72 L (74-99) mg/dL POC Glucose (mg/dL) 259 H 44 L* (70-110) mg/dL ALT 40 H (4-34) U/L Total Protein 5.5 L (6.3-8.2) g/dL Albumin 3.4 L (3.5-5.0) g/dL 12/29/24 Range/Units 18:26 Sodium (137-145) mmol/L Chloride (98-107) mmol/L Carbon Dioxide (22-30) mmol/L BUN (7-17) mg/dL Creatinine (0.52-1.04) mg/dL Glucose (74-99) mg/dL POC Glucose (mg/dL) 394 H (70-110) mg/dL ALT (4-34) U/L Total Protein (6.3-8.2) g/dL Albumin (3.5-5.0) g/dL Microbiology - Last 24 Hours (Table) 12/28/24 15:20 Gram Stain - Preliminary Sputum Sputum Culture - Preliminary Assessment and Plan (1) Sepsis Current Visit: Yes Status: Acute Code(s): A41.9 - SEPSIS, UNSPECIFIED ORGANISM SNOMED Code(s): 07692160 (2) Pseudomonas aeruginosa infection Current Visit: Yes Status: Acute Code(s): A49.8 - OTHER BACTERIAL INFECTIONS OF UNSPECIFIED SITE SNOMED Code(s): 24872302 (3) Pneumonia Current Visit: Yes Status: Acute Code(s): J18.9 - PNEUMONIA, UNSPECIFIED ORGANISM SNOMED Code(s): 237845418 (4) Allergy to multiple antibiotics Current Visit: No Status: Acute Code(s): Z88.1 - ALLERGY STATUS TO OTHER ANTIBIOTIC AGENTS SNOMED Code(s): 816548539 Plan: 1patient presented the hospital with sepsis in this patient who did have fever elevated lactic acid meeting criteria for SIRS/sepsis source is right lower lobe pneumonia with recent sputum culture positive for a drug-resistant Pseudomonas aeruginosa 2-patient with multiple antibiotic ALLERGIES that would limit the number of antibiotic safe to use 3patient repeat Pseudomonas sensitivity finalized with Zerbaxa sensitive pathogen antibiotic has been switched over to Zerbaxa and Avycaz has been discontinued per discussion with the pharmacy this morning Dictation was produced using [employer] dictation software. please excuse any grammatical, word or spelling errors.
[2024-12-29 22:05] LABS: Glucose,Whole Blood 218 mg/dL (70-110)
[2024-12-30 00:33] LABS: Glucose,Whole Blood 138 mg/dL (70-110)
[2024-12-30 06:21] LABS: Glucose,Whole Blood 57 mg/dL (70-110)
[2024-12-30 06:57] LABS: Glucose,Whole Blood 106 mg/dL (70-110)
[2024-12-30 09:46] LABS: Basophils # (A) 0.13 X 10*3/uL (0.00-0.10); Basophils % (A) 0.9 %; Eosinophils # (A) 0.11 X 10*3/uL (0.04-0.35); Eosinophils % (A) 0.8 %; HGB 11.4 g/dL (12.0-15.0); Lymphocytes % (A) 17.4 %; MCH 29.8 pg (27.0-32.0); MCV 99.5 FL (80.0-97.0); Mean Platelet Volume 9.6 FL (9.5-12.2); Monocytes # (A) 1.24 X 10*3/uL (0.20-1.00); NRBC Per 100 WBC 0 X 10*3/uL (0.00-0.01); Neutrophils # (A) 9.39 X 10*3/uL (1.80-7.70); Platelet Count 248 X 10*3/uL (140-440); RBC 3.82 X 10*6/uL (4.10-5.20); RDW 14.3 % (11.5-14.5); WBC 13.81 X 10*3/uL (4.50-10.00)
[2024-12-30 10:29] LABS: Blood Urea Nitrogen 18.8 mg/dL (9.0-27.0); Calcium 8.7 mg/dL (8.7-10.3); Chloride 96 mmol/L (96-109); Glucose 48 mg/dL (70-110); Potassium 4.4 mmol/L (3.5-5.5); Sodium 142 mmol/L (135-145)
[2024-12-30 11:16] LABS: Glucose,Whole Blood 177 mg/dL (70-110)
[2024-12-30] MEDS: NYSTATIN 100,000 UNIT/GM POWD 15 GM TOPICAL PRN (12:05)
--- NOTE | 2024-12-30 14:33 | P.PN ---
Subjective Progress Note Date: 12/30/24 Pulmonary consultation was requested. Readmission less than 24 hours for acute COPD exacerbation. Recently discharged from the hospital less than 24 hours ago on a steroid taper with Levaquin to be completed at home. Her sputum was previously positive for Pseudomonas aeruginosa. When she got home, she developed some respiratory distress and states she could not catch her breath. She continues to have congested nonproductive cough. Workup in the emergency department including repeat chest showing mostly chronic findings. Left hemidiaphragm elevation, right lung linear atelectasis. Labs include a CBC with a WBC count of 21.5 which is trending down, hemoglobin 11.3 g/dL, platelets 282. CMP: Sodium 129, potassium 4.5, chloride 92, serum bicarb 31, BUN 38, creatinine 0.61, glucose 592. Magnesium 1.9. Lactic was 3.3 and is down to 2. NT proBNP 2780. Patient currently being evaluated emergency department. She is sitting up in bed, on 3 L/min nasal cannula which she wears at home. Does not appear to be any respiratory distress. Continues to have congested cough. No significant sputum production, hemoptysis, chest pain, fevers or chills. No lower extremity edema, chest pain, heart palpitations, or syncope. Did receive a one-time dose of Levaquin in the ED. Normal saline infusing at 75 mL/h. Also, her prednisone taper was resumed. Most recent [id number] glucose down to 239. Current vital signs: Temperature 97.6 F, heart rate 71 bpm, blood pressure 107/51 mmHg, nontachypneic, SpO2 recorded at 98% on 3 L/min nasal cannula. The patient was seen today December 29, 2024 in follow-up on the regular medical floor. She is currently sitting up in a chair at the bedside. Awake and alert in no acute distress. Maintaining good O2 saturations in the 90s on 3 L/min per nasal cannula. She is having some complaints of nausea today. She has a loose congested cough. Some bilateral wheezing. CT scan of the chest revealed bibasilar infiltrates right greater than left. Small right pleural effusion. Mild to moderate cardiomegaly. Sodium 134. Potassium 3.9. Bicarb 37. BUN 20. Creatinine 0.47. Glucose 72. She remains on Symbicort and Singulair. Continued on prednisone taper. Recent sputum culture reveals a resistant Pseudomonas aeruginosa. She has been initiated on Zerbaxa per ID service. The patient is seen today December 30, 2024 in follow-up on the regular medical floor. She is currently sitting up in a chair at the bedside. Awake and alert in no acute distress. Maintaining O2 saturations in the 90s on 3 L/min per nasal cannula. Afebrile. Hemodynamically stable. Sputum culture revealed no growth. White count 13.8. Hemoglobin 14.4. Platelets 248. Sodium 142. Potassium 4.4. Bicarb 38. BUN 19. Creatinine 0.4. Glucose 177. She remains on DuoNeb inhalations, Symbicort, prednisone taper. Antibiotics in the form of Zerbaxa. She remains on oral diuretics. Objective - Vital Signs Vital signs: Vital Signs Temp 97.8 F 12/30/24 13:36 Pulse 86 12/30/24 13:36 Resp 18 12/30/24 13:36 BP 131/72 12/30/24 13:36 Pulse Ox 93 L 12/30/24 13:36 FiO2 Intake & Output 12/29/24 12/30/24 12/30/24 18:59 06:59 18:59 Other: Voiding Method Bedside Commode Bedside Commode Bedside Commode # Voids 1 1 - Exam GENERAL EXAM: Alert, 69-year-old female, up in a chair, on 3 L nasal cannula, not in any respiratory distress. HEAD: Normocephalic. EYES: Normal reaction of pupils, equal size. NOSE: Clear with pink turbinates. THROAT: No erythema or exudates. NECK: No masses, no JVD. CHEST: No chest wall deformity. LUNGS: Equal air entry with coarse rhonchi and wheeze bilaterally. CVS: S1 and S2 normal with no audible murmur, regular rhythm. ABDOMEN: No hepatosplenomegaly, normal bowel sounds, no guarding or rigidity. SPINE: No scoliosis or deformity SKIN: No rashes CENTRAL NERVOUS SYSTEM: No focal deficits, tone is normal in all 4 extremities. EXTREMITIES: There is no peripheral edema. No clubbing, no cyanosis. Peripheral pulses are intact. - Labs CBC & Chem 7: 12/30/24 05:18 12/30/24 05:18 Labs: Abnormal Lab Results - Last 24 Hours (Table) 12/29/24 12/29/2425 Range/Units 18:26 22:04 00:31 WBC (4.50-10.00) X 10*3/uL RBC (4.10-5.20) X 10*6/uL Hgb (12.0-15.0) g/dL MCV (80.0-97.0) FL MCHC (32.0-37.0) g/dL Immature Gran # (0.00-0.04) X 10*3/uL Neutrophils # (1.80-7.70) X 10*3/uL Monocytes # (0.20-1.00) X 10*3/uL Basophils # (0.00-0.10) X 10*3/uL Carbon Dioxide (21.6-31.8) mmol/L Creatinine (0.6-1.5) mg/dL BUN/Creatinine Ratio (12.00-20.00) Ratio Glucose (70-110) mg/dL POC Glucose (mg/dL) 394 H 218 H 138 H (70-110) mg/dL 12/30/24 12/30/24 12/30/24 Range/Units 05:18 05:18 06:18 WBC 13.81 H (4.50-10.00) X 10*3/uL RBC 3.82 L (4.10-5.20) X 10*6/uL Hgb 11.4 L (12.0-15.0) g/dL MCV 99.5 H (80.0-97.0) FL MCHC 30.0 L (32.0-37.0) g/dL Immature Gran # 0.54 H (0.00-0.04) X 10*3/uL Neutrophils # 9.39 H (1.80-7.70) X 10*3/uL Monocytes # 1.24 H (0.20-1.00) X 10*3/uL Basophils # 0.13 H (0.00-0.10) X 10*3/uL Carbon Dioxide 38.0 H (21.6-31.8) mmol/L Creatinine 0.4 L (0.6-1.5) mg/dL BUN/Creatinine Ratio 47.00 H (12.00-20.00) Ratio Glucose 48 A* (70-110) mg/dL POC Glucose (mg/dL) 57 L (70-110) mg/dL 12/30/24 Range/Units 11:11 WBC (4.50-10.00) X 10*3/uL RBC (4.10-5.20) X 10*6/uL Hgb (12.0-15.0) g/dL MCV (80.0-97.0) FL MCHC (32.0-37.0) g/dL Immature Gran # (0.00-0.04) X 10*3/uL Neutrophils # (1.80-7.70) X 10*3/uL Monocytes # (0.20-1.00) X 10*3/uL Basophils # (0.00-0.10) X 10*3/uL Carbon Dioxide (21.6-31.8) mmol/L Creatinine (0.6-1.5) mg/dL BUN/Creatinine Ratio (12.00-20.00) Ratio Glucose (70-110) mg/dL POC Glucose (mg/dL) 177 H (70-110) mg/dL Microbiology - Last 24 Hours (Table) 12/28/24 15:20 Gram Stain - Final Sputum Sputum Culture - Final Assessment and Plan Assessment: Acute COPD exacerbation Acute on chronic shortness of breath, secondary to above Sputum culture from 12/25/2024 again positive for Pseudomonas aeruginosa, quite resistant, initiated on Zerbaxa Left hemidiaphragm elevation possible paralysis Chronic obstructive pulmonary disease, with an FEV1 64% predicted, Gold stage II Chronic hypoxemic respiratory failure, secondary to combination of above Severe hyperglycemia Pseudohyponatremia, secondary to above Leukocytosis, possibly secondary to steroid use Sputum positive for MRSA 11/27/2024 Chronic ongoing tobacco dependence Hypothyroidism Hypertension History of mediastinal lymphadenopathy History of gastric bypass surgery Bipolar disorder Fibromyalgia and chronic pain syndrome Plan: The patient was seen and evaluated Labs and medications reviewed Resistant Pseudomonas in the sputum Continued on Zerbaxa Continue DuoNeb inhalations, Symbicort, Singulair Continue a prednisone taper Continue her anxiety medications Titrate the FiO2 as tolerated Increase her activity as tolerated We will continue to follow I have personally seen and examined the patient, performed the documentation and the assessment and plan as written. Number of minutes spent on the visit: 10 Dictation was produced using [employer] software. Please excuse any grammatical, word or spelling errors.
[2024-12-30 16:18] LABS: Glucose,Whole Blood 282 mg/dL (70-110)
--- NOTE | 2024-12-30 18:35 | P.PN ---
Subjective Progress Note Date: 12/30/24 Patient is evaluated on the medical floor. She came back into the hospital because of a fall with right knee pain. Imaging reveals no acute fracture or dislocation as well as no joint effusion. She was evaluated by orthopedics because of this and the pain to her knee has essentially resolved. They are recommending a lidocaine patch as needed and follow-up with orthopedics on discharge. Patient continues on IV Zerbaxa for the positive sputum culture with pseudomonas and ID is following closely. She reports continued sputum production thick in nature. Was also having episodes of emesis although reports that she has not had a good sized bowel movement in the last 5 days. She does not want any rectal medications or any liquid laxatives. She states that she like to only try a pill for her constipation at this time. This may not be that effective however we will follow-up with the patient if she is still unable to have a bowel movement. Labs today reviewed sodium level of 134 potassium 3.9, BUN of 20 creatinine of 0.47. Blood glucose of 101. She is taken off of the long-acting insulin and will continue only on sliding scale as needed as she is having episodes of hypoglycemia. She continues on oral prednisone. Her white blood cell count is currently pending from today. She will require rehab on discharge. 12/30/2024 Patient evaluated today resting in the chair. Has a pain in her left upper abdomen. Feels anxious. States her brother is hospitalized at [facility] and not doing well. Initial sputum reveals pseudomonas aueroginosa, surinder albicans, and corynebacterium striatum group however sputum was repeated on 12/28 and reports as normal farooq. WBC 13.81, hgb 11.4. Sodium 142, potassium 4.4. BUN 18.8, creatinine 0.4. Glucose was low this AM. Review of Systems Constitutional: Denied any fatigue denied any fever. Cardio vascular: denied any chest pain, palpitations Gastrointestinal: denied any nausea, vomiting, diarrhea Reports constipation Pulmonary: Reports shortness of breath, reports cough and sputum production Neurologic denied any new focal deficits All inpatient medications were reviewed and appropriate changes in these medications as dictated in the interval history and assessment and plan. PHYSICAL EXAMINATION: GENERAL: The patient is alert and oriented x3, not in any acute distress. Well developed, well nourished. HEENT: Pupils are round and equally reacting to light. EOMI. No scleral icterus. No conjunctival pallor. Normocephalic, atraumatic. No pharyngeal erythema. No thyromegaly. CARDIOVASCULAR: S1 and S2 present. No murmurs, rubs, or gallops. PULMONARY: Coarse ronchi throughout ABDOMEN: Soft, nontender, nondistended, Hypoactive bowel sounds. No palpable organomegaly. MUSCULOSKELETAL: No joint swelling or deformity. Right knee pain. EXTREMITIES: No cyanosis, clubbing, or pedal edema. NEUROLOGICAL: Gross neurological examination did not reveal any focal deficits. Generalized weakness SKIN: No rashes. Assessment -Fall with right knee pain -Weakness and medical debility requiring ERIBERTO on discharge -Acute on chronic hypoxic/Hypercapnic respiratory failure and chronically wears 3 L outpatient -Pneumonia, present on admission -Leukocytosis secondary to above -Sputum culture positive for drug-resistant Pseudomonas; positive for MRSA back in November 2024 -Hyponatremia, hypovolemic improving -Hyperglycemia treated with long-acting insulin and now hypoglycemic -Lactic acidosis -Acute exacerbation COPD -Constipation -Hypertension -Anxiety/depression/bipolar disorder -Hypothyroidism -Thyroid nodule 2.[address] on [address] CT f/u ultrasound recommended -Obesity with a BMI of 36.8 -Continued ongoing nicotine dependence -History of mediastinal lymphadenopathy -Fibromyalgia and chronic pain syndrome -Diabetes Mellitus type 2 hemoglobin A1C 7.7. -Bipolar -THC use -GI prophylaxis -DVT prophylaxis Plan Continue IV zerbaxa with ID following Continue Duonebs scheduled and PRN Continue oral prednisone Stop lantus and continue accuchecks ACHS and sliding scale insulin Patient has no documented history of diabetes however has had multiple and frequent hospitalizations for COPD/Pneumonia and has been maintained on steroids frequently over the last few months this is likely contributing to her elevated hemoglobin A1C of 7.7. Will adjust medications as needed and continue with close monitoring of her blood glucose Orthopedics following pRN and recommending lidocaine patch for the right knee and PT eval, outpatient follow up Pulmonology following Add dulcolax daily, add miralax Check a D-Dimer Social work following for DC planning will require authorization has not been started yet due to the current IV antibiotics and awaiting recommendations for DC by infectious disease The impression and plan of care has been dictated by Casandra Jimenez, Nurse Practitioner as directed. Dr. Micky MD I have performed a history and physical examination and medical decision making of this patient, discussed the same with the dictator, and agree with the dictators assessment and plan as written, documented as a scribe. Based on total visit time, I have performed more than 50% of this visit. Objective - Vital Signs Vital signs: Vital Signs Temp 97.8 F 12/30/24 13:36 Pulse 74 12/30/24 16:53 Resp 18 12/30/24 13:36 BP 131/72 12/30/24 13:36 Pulse Ox 93 L 12/30/24 13:36 FiO2 Intake & Output 12/29/24 12/30/24 12/30/24 18:59 06:59 18:59 Other: Voiding Method Bedside Commode Bedside Commode Bedside Commode # Voids 1 4 # Bowel Movements 2 - Labs CBC & Chem 7: 12/30/24 05:18 12/30/24 05:18 Labs: Abnormal Lab Results - Last 24 Hours (Table) 12/29/24 12/29/24 12/30/24 Range/Units 18:26 22:04 00:31 WBC (4.50-10.00) X 10*3/uL RBC (4.10-5.20) X 10*6/uL Hgb (12.0-15.0) g/dL MCV (80.0-97.0) FL MCHC (32.0-37.0) g/dL Immature Gran # (0.00-0.04) X 10*3/uL Neutrophils # (1.80-7.70) X 10*3/uL Monocytes # (0.20-1.00) X 10*3/uL Basophils # (0.00-0.10) X 10*3/uL Carbon Dioxide (21.6-31.8) mmol/L Creatinine (0.6-1.5) mg/dL BUN/Creatinine Ratio (12.00-20.00) Ratio Glucose (70-110) mg/dL POC Glucose (mg/dL) 394 H 218 H 138 H (70-110) mg/dL 12/30/24 12/30/24 12/30/24 Range/Units 05:18 05:18 06:18 WBC 13.81 H (4.50-10.00) X 10*3/uL RBC 3.82 L (4.10-5.20) X 10*6/uL Hgb 11.4 L (12.0-15.0) g/dL MCV 99.5 H (80.0-97.0) FL MCHC 30.0 L (32.0-37.0) g/dL Immature Gran # 0.54 H (0.00-0.04) X 10*3/uL Neutrophils # 9.39 H (1.80-7.70) X 10*3/uL Monocytes # 1.24 H (0.20-1.00) X 10*3/uL Basophils # 0.13 H (0.00-0.10) X 10*3/uL Carbon Dioxide 38.0 H (21.6-31.8) mmol/L Creatinine 0.4 L (0.6-1.5) mg/dL BUN/Creatinine Ratio 47.00 H (12.00-20.00) Ratio Glucose 48 A* (70-110) mg/dL POC Glucose (mg/dL) 57 L (70-110) mg/dL 12/30/24 12/30/24 Range/Units 11:11 16:16 WBC (4.50-10.00) X 10*3/uL RBC (4.10-5.20) X 10*6/uL Hgb (12.0-15.0) g/dL MCV (80.0-97.0) FL MCHC (32.0-37.0) g/dL Immature Gran # (0.00-0.04) X 10*3/uL Neutrophils # (1.80-7.70) X 10*3/uL Monocytes # (0.20-1.00) X 10*3/uL Basophils # (0.00-0.10) X 10*3/uL Carbon Dioxide (21.6-31.8) mmol/L Creatinine (0.6-1.5) mg/dL BUN/Creatinine Ratio (12.00-20.00) Ratio Glucose (70-110) mg/dL POC Glucose (mg/dL) 177 H 282 H (70-110) mg/dL Microbiology - Last 24 Hours (Table) 12/28/24 15:20 Gram Stain - Final Sputum Sputum Culture - Final Assessment and Plan Time with Patient: Less than 30
--- NOTE | 2024-12-30 19:54 | P.PN ---
Subjective Progress Note Date: 12/30/24 Principal diagnosis: Reason for follow-up is pneumonia MDRO Pseudomonas Patient is a 69-year-old female with a past medical history significant for Asthma, Heart Failure, COPD, Fibromyalgia, recurrent pneumonia presented to the hospital with increasing shortness of breath and cough has been diagnosed with pneumonia with recent sputum positive for drug-resistant Pseud omonas On today's evaluation it is 12/31/2023, patient did have a temperature of 97.8 F this morning and denies having any chills, patient is on 3 L nasal oxygen and still complaining of shortness of breath on exertion patient did have a cough bringing some sputum also complaining of nausea and episode of vomiting or diarrhea. Patient white count is down to 13.81, creatinine 0.4. Objective - Vital Signs Vital signs: Vital Signs Temp 97.8 F 12/30/24 13:36 Pulse 74 12/30/24 16:53 Resp 18 12/30/24 13:36 BP 131/72 12/30/24 13:36 Pulse Ox 93 L 12/30/24 13:36 FiO2 Intake & Output 12/29/24 12/30/24 12/30/24 18:59 06:59 18:59 Other: Voiding Method Bedside Commode Bedside Commode Bedside Commode # Voids 1 4 # Bowel Movements 2 - Exam GENERAL DESCRIPTION: An elderly female lying in bed in no distress RESPIRATORY SYSTEM: Unlabored breathing , decreased breath sounds at bases HEART: S1 S2 regular rate and rhythm , ABDOMEN: Soft , no tenderness EXTREMITIES: No edema feet - Labs CBC & Chem 7: 12/30/24 05:18 12/30/24 05:18 Labs: Abnormal Lab Results - Last 24 Hours (Table) 12/29/24 12/29/24 12/30/24 Range/Units 18:26 22:04 00:31 WBC (4.50-10.00) X 10*3/uL RBC (4.10-5.20) X 10*6/uL Hgb (12.0-15.0) g/dL MCV (80.0-97.0) FL MCHC (32.0-37.0) g/dL Immature Gran # (0.00-0.04) X 10*3/uL Neutrophils # (1.80-7.70) X 10*3/uL Monocytes # (0.20-1.00) X 10*3/uL Basophils # (0.00-0.10) X 10*3/uL Carbon Dioxide (21.6-31.8) mmol/L Creatinine (0.6-1.5) mg/dL BUN/Creatinine Ratio (12.00-20.00) Ratio Glucose (70-110) mg/dL POC Glucose (mg/dL) 394 H 218 H 138 H (70-110) mg/dL 12/30/24 12/30/24 12/30/24 Range/Units 05:18 05:18 06:18 WBC 13.81 H (4.50-10.00) X 10*3/uL RBC 3.82 L (4.10-5.20) X 10*6/uL Hgb 11.4 L (12.0-15.0) g/dL MCV 99.5 H (80.0-97.0) FL MCHC 30.0 L (32.0-37.0) g/dL Immature Gran # 0.54 H (0.00-0.04) X 10*3/uL Neutrophils # 9.39 H (1.80-7.70) X 10*3/uL Monocytes # 1.24 H (0.20-1.00) X 10*3/uL Basophils # 0.13 H (0.00-0.10) X 10*3/uL Carbon Dioxide 38.0 H (21.6-31.8) mmol/L Creatinine 0.4 L (0.6-1.5) mg/dL BUN/Creatinine Ratio 47.00 H (12.00-20.00) Ratio Glucose 48 A* (70-110) mg/dL POC Glucose (mg/dL) 57 L (70-110) mg/dL 12/30/24 12/30/24 Range/Units 11:11 16:16 WBC (4.50-10.00) X 10*3/uL RBC (4.10-5.20) X 10*6/uL Hgb (12.0-15.0) g/dL MCV (80.0-97.0) FL MCHC (32.0-37.0) g/dL Immature Gran # (0.00-0.04) X 10*3/uL Neutrophils # (1.80-7.70) X 10*3/uL Monocytes # (0.20-1.00) X 10*3/uL Basophils # (0.00-0.10) X 10*3/uL Carbon Dioxide (21.6-31.8) mmol/L Creatinine (0.6-1.5) mg/dL BUN/Creatinine Ratio (12.00-20.00) Ratio Glucose (70-110) mg/dL POC Glucose (mg/dL) 177 H 282 H (70-110) mg/dL Microbiology - Last 24 Hours (Table) 12/28/24 15:20 Gram Stain - Final Sputum Sputum Culture - Final Assessment and Plan (1) Sepsis Current Visit: Yes Status: Acute Code(s): A41.9 - SEPSIS, UNSPECIFIED OR GANISM SNOMED Code(s): 53477698 (2) Pseudomonas aeruginosa infection Current Visit: Yes Status: Acute Code(s): A49.8 - OTHER BACTERIAL INFECTIONS OF UNSPECIFIED SITE SNOMED Code(s): 64166463 (3) Pneumonia Current Visit: Yes Status: Acute Code(s): J18.9 - PNEUMONIA, UNSPECIFIED ORGANISM SNOMED Code(s): 449288381 (4) Allergy to multiple antibiotics Current Visit: No Status: Acute Code(s): Z88.1 - ALLERGY STATUS TO OTHER ANTIBIOTIC AGENTS SNOMED Code(s): 485716902 Plan: 1patient presented the hospital with sepsis in this patient who did have fever elevated lactic acid meeting criteria for SIRS/sepsis source is right lower lobe pneumonia with recent sputum culture positive for a drug-resistant Pseudomonas aeruginosa 2-patient with multiple antibiotic ALLERGIES that would limit the number of antibiotic safe to use 3patient repeat Pseudomonas sensitivity finalized with Zerbaxa sensitive pathogen, for the patient is currently being treated with Zerbaxa and white count is trending down we will monitor clinical course closely Dictation was produced using [email or web address] dictation software. please excuse any grammatical, word or spelling errors. Time with Patient: Less than 30
[2024-12-30 21:14] LABS: Glucose,Whole Blood 238 mg/dL (70-110)
--- NOTE | 2024-12-30 21:34 | CT ---
EXAMINATION TYPE: CT chest angio for PE DATE OF EXAM: 12/30/2024 9:07 PM COMPARISON: CT 12/28/2024 CLINICAL INDICATION: Female, 69 years old with history of elevated D-Dimer, left sided chest pain; TECHNIQUE/CONTRAST: CTA scan of the thorax is performed with IV Contrast, patient injected with 100 mL of Isovue 300, MIP images are created and reviewed these are created on a separate workstation.. CT DLP: 475 mGycm, Automated exposure control for dose reduction was used. FINDINGS: Lungs/Pleura: Trace or pleural fusion similar morphology to the lungs with airspace opacities superim posed on atelectasis in the lung bases right greater than left. No evidence of focal consolidation, l eft pleural effusion or pneumothorax. Interlobular septal thickening. Airway: Large airways are patent. Heart: Cardiomegaly is demonstrated. Mild coronary artery calcifications present. Vasculature: There is no evidence for a filling defect within the pulmonary vasculature to suggest ac randy pulmonary embolism. The pulmonary artery is of normal size. Mediastinum: No gross evidence of adenopathy. Musculoskeletal: Moderate disc degeneration changes are present throughout the thoracolumbar spine se condary to osteophyte formation and facet joint arthropathy. Soft Tissues/lymph nodes: Unremarkable. Lower neck: No significant findings. Upper Abdomen: Postsurgical change the gastroesophageal junction. The gallbladder surgically absent. Large bowel stool in the colon. IMPRESSION: 1. No evidence of pulmonary embolism. 2. No significant change in the lung opacities compared to 12/28/2024. Streaky opacities in the lung b ases right greater than left thought to be combination of atelectasis with airspace disease. 3. Mild cardiomegaly trace bilateral pleural effusions and pulmonary vascular congestion correlate wi th serum BNP. [facility], , 12/30/2024 9:32 PM
[2024-12-30] MEDS: HEPARIN SODIUM,PORCINE 5,000 UNIT/ML 1 ML VIAL SQ SCH (22:10)
[2024-12-30] MEDS: polyethylene glycoL 3350 17 GM POWD.PACK PO SCH (22:10)
[2024-12-31 02:55] LABS: Glucose,Whole Blood 48 mg/dL (70-110)
[2024-12-31 04:12] LABS: Glucose,Whole Blood 139 mg/dL (70-110)
[2024-12-31 06:39] LABS: Glucose,Whole Blood 125 mg/dL (70-110)
[2024-12-31 11:08] LABS: Blood Urea Nitrogen 16.3 mg/dL (9.0-27.0); Calcium 9.1 mg/dL (8.7-10.3); Carbon Dioxide 34.2 mmol/L (21.6-31.8); Chloride 95 mmol/L (96-109); Glucose 73 mg/dL (70-110); Sodium 139 mmol/L (135-145)
[2024-12-31 11:09] LABS: Glucose,Whole Blood 124 mg/dL (70-110)
--- NOTE | 2024-12-31 14:04 | P.PN ---
Subjective Progress Note Date: 12/31/24 Patient is evaluated on the medical floor. She came back into the hospital because of a fall with right knee pain. Imaging reveals no acute fracture or dislocation as well as no joint effusion. She was evaluated by orthopedics because of this and the pain to her knee has essentially resolved. They are recommending a lidocaine patch as needed and follow-up with orthopedics on discharge. Patient continues on IV Zerbaxa for the positive sputum culture with pseudomonas and ID is following closely. She reports continued sputum production thick in nature. Was also having episodes of emesis although reports that she has not had a good sized bowel movement in the last 5 days. She does not want any rectal medications or any liquid laxatives. She states that she like to only try a pill for her constipation at this time. This may not be that effective however we will follow-up with the patient if she is still unable to have a bowel movement. Labs today reviewed sodium level of 134 potassium 3.9, BUN of 20 creatinine of 0.47. Blood glucose of 101. She is taken off of the long-acting insulin and will continue only on sliding scale as needed as she is having episodes of hypoglycemia. She continues on oral prednisone. Her white blood cell count is currently pending from today. She will require rehab on discharge. 12/30/2024 Patient evaluated today resting in the chair. Has a pain in her left upper abdomen. Feels anxious. States her brother is hospitalized at [facility] and not doing well. Initial sputum reveals pseudomonas aueroginosa, surinder albicans, and corynebacterium striatum group however sputum was repeated on 12/28 and reports as normal farooq. WBC 13.81, hgb 11.4. Sodium 142, potassium 4.4. BUN 18.8, creatinine 0.4. Glucose was low this AM. 12/31/2024 Patient evaluated in follow-up on the medical floor. She does report feeling better than yesterday and states that the pain in her upper abdomen is gone and she is less anxious. Her repeat sputum was negative so far she continues on IV zerbaxa with ID following closely. She has not had a bowel movement. Blood glucose is better without episodes of hypoglycemia and she remains off the Lantus. She continues on sliding scale insulin only. Review of Systems Constitutional: Denied any fatigue denied any fever. Cardio vascular: denied any chest pain, palpitations Gastrointestinal: denied any nausea, vomiting, diarrhea Reports constipation Pulmonary: Reports shortness of breath, reports cough and sputum production Neurologic denied any new focal deficits All inpatient medications were reviewed and appropriate changes in these medications as dictated in the interval history and assessment and plan. PHYSICAL EXAMINATION: GENERAL: The patient is alert and oriented x3, not in any acute distress. Well developed, well nourished. HEENT: Pupils are round and equally reacting to light. EOMI. No scleral icterus. No conjunctival pallor. Normocephalic, atraumatic. No pharyngeal erythema. No thyromegaly. CARDIOVASCULAR: S1 and S2 present. No murmurs, rubs, or gallops. PULMONARY: Coarse ronchi throughout ABDOMEN: Soft, nontender, nondistended, Hypoactive bowel sounds. No palpable organomegaly. MUSCULOSKELETAL: No joint swelling or deformity. Right knee pain. EXTREMITIES: No cyanosis, clubbing, or pedal edema. NEUROLOGICAL: Gross neurological examination did not reveal any focal deficits. Generalized weakness SKIN: No rashes. Assessment -Fall with right knee pain -Weakness and medical debility requiring ERIBERTO on discharge -Acute on chronic hypoxic/Hypercapnic respiratory failure and chronically wears 3 L outpatient -Pneumonia, present on admission -Leukocytosis secondary to above -Sputum culture positive for drug-resistant Pseudomonas; positive for MRSA back in November 2024 -Hyponatremia, hypovolemic improving -Hyperglycemia treated with long-acting insulin and now hypoglycemic -Lactic acidosis -Acute exacerbation COPD -Constipation -Hypertension -Anxiety/depression/bipolar disorder -Hypothyroidism -Thyroid nodule 2.[address] f/u ultrasound recommended -Obesity with a BMI of 36.8 -Continued ongoing nicotine dependence -History of mediastinal lymphadenopathy -Fibromyalgia and chronic pain syndrome -Diabetes Mellitus type 2 hemoglobin A1C 7.7. -Bipolar -THC use -GI prophylaxis -DVT prophylaxis Plan Continue IV zerbaxa with ID following Continue Duonebs scheduled and PRN Continue oral prednisone 40 mg for 5 doses Stop lantus and continue accuchecks ACHS and sliding scale insulin Patient has no documented history of diabetes however has had multiple and freq uent hospitalizations for COPD/Pneumonia and has been maintained on steroids frequently over the last few months this is likely contributing to her elevated hemoglobin A1C of 7.7. Will adjust medications as needed and continue with close monitoring of her blood glucose Orthopedics following pRN and recommending lidocaine patch for the right knee and PT eval, outpatient follow up Pulmonology following Add dulcolax daily, add miralax Check a D-Dimer Social work following for DC planning will require authorization has not been started yet due to the current IV antibiotics and awaiting recommendations for DC by infectious disease The impression and plan of care has been dictated by Casandra Jimenez, Nurse Practitioner as directed. Dr. Micky MD I have performed a history and physical examination and medical decision making of this patient, discussed the same with the dictator, and agree with the dictators assessment and plan as written, documented as a scribe. Based on total visit time, I have performed more than 50% of this visit. Objective - Vital Signs Vital signs: Vital Signs Temp 98.5 F 12/31/24 08:00 Pulse 67 12/31/24 08:00 Resp 17 12/31/24 08:00 BP 149/59 12/31/24 08:00 Pulse Ox 90 L 12/31/24 08:00 FiO2 Intake & Output 12/30/24 12/31/24 12/31/24 18:59 06:59 18:59 Intake Total 1620 Balance 1620 Intake: Oral 1620 Other: Voiding Method Bedside Commode Bedside Commode Diaper # Voids 4 2 # Bowel Movements 2 - Labs CBC & Chem 7: 12/30/24 05:18 12/31/24 03:38 Labs: Abnormal Lab Results - Last 24 Hours (Table) 12/30/24 12/30/24 12/30/24 Range/Units 05:18 11:11 16:16 D-Dimer (<0.60) mg/L FEU Carbon Dioxide 38.0 H (21.6-31.8) mmol/L Creatinine 0.4 L (0.6-1.5) mg/dL BUN/Creatinine Ratio 47.00 H (12.00-20.00) Ratio Glucose 48 A* (70-110) mg/dL POC Glucose (mg/dL) 177 H 282 H (70-110) mg/dL 12/30/24 12/30/24 12/31/24 Range/Units 19:04 21:12 02:54 D-Dimer 2.46 H (<0.60) mg/L FEU Carbon Dioxide (21.6-31.8) mmol/L Creatinine (0.6-1.5) mg/dL BUN/Creatinine Ratio (12.00-20.00) Ratio Glucose (70-110) mg/dL POC Glucose (mg/dL) 238 H 48 L* (70-110) mg/dL 12/31/24 12/31/24 Range/Units 04:10 06:38 D-Dimer (<0.60) mg/L FEU Carbon Dioxide (21.6-31.8) mmol/L Creatinine (0.6-1.5) mg/dL BUN/Creatinine Ratio (12.00-20.00) Ratio Glucose (70-110) mg/dL POC Glucose (mg/dL) 139 H 125 H (70-110) mg/dL Microbiology - Last 24 Hours (Table) 12/28/24 15:20 Gram Stain - Final Sputum Sputum Culture - Final Assessment and Plan Time with Patient: Less than 30
--- NOTE | 2024-12-31 14:32 | P.PN ---
Subjective Progress Note Date: 12/31/24 Pulmonary consultation was requested. Readmission less than 24 hours for acute COPD exacerbation. Recently discharged from the hospital less than 24 hours ago on a steroid taper with Levaquin to be completed at home. Her sputum was previously positive for Pseudomonas aeruginosa. When she got home, she developed some respiratory distress and states she could not catch her breath. She continues to have congested nonproductive cough. Workup in the emergency department including repeat chest showing mostly chronic findings. Left hemidiaphragm elevation, right lung linear atelectasis. Labs include a CBC with a WBC count of 21.5 which is trending down, hemoglobin 11.3 g/dL, platelets 282. CMP: Sodium 129, potassium 4.5, chloride 92, serum bicarb 31, BUN 38, creatinine 0.61, glucose 592. Magnesium 1.9. Lactic was 3.3 and is down to 2. NT proBNP 2780. Patient currently being evaluated emergency department. She is sitting up in bed, on 3 L/min nasal cannula which she wears at home. Does not appear to be any respiratory distress. Continues to have congested cough. No significant sputum production, hemoptysis, chest pain, fevers or chills. No lower extremity edema, chest pain, heart palpitations, or syncope. Did receive a one-time dose of Levaquin in the ED. Normal saline infusing at 75 mL/h. Also, her prednisone taper was resumed. Most recent [id number] glucose down to 239. Current vital signs: Temperature 97.6 F, heart rate 71 bpm, blood pressure 107/51 mmHg, nontachypneic, SpO2 recorded at 98% on 3 L/min nasal cannula. The patient was seen today December 29, 2024 in follow-up on the regular medical floor. She is currently sitting up in a chair at the bedside. Awake and alert in no acute distress. Maintaining good O2 saturations in the 90s on 3 L/min per nasal cannula. She is having some complaints of nausea today. She has a loose congested cough. Some bilateral wheezing. CT scan of the chest revealed bibasilar infiltrates right greater than left. Small right pleural effusion. Mild to moderate cardiomegaly. Sodium 134. Potassium 3.9. Bicarb 37. BUN 20. Creatinine 0.47. Glucose 72. She remains on Symbicort and Singulair. Continued on prednisone taper. Recent sputum culture reveals a resistant Pseudomonas aeruginosa. She has been initiated on Zerbaxa per ID service. The patient is seen today December 30, 2024 in follow-up on the regular medical floor. She is currently sitting up in a chair at the bedside. Awake and alert in no acute distress. Maintaining O2 saturations in the 90s on 3 L/min per nasal cannula. Afebrile. Hemodynamically stable. Sputum culture revealed no growth. White count 13.8. Hemoglobin 14.4. Platelets 248. Sodium 142. Potassium 4.4. Bicarb 38. BUN 19. Creatinine 0.4. Glucose 177. She remains on DuoNeb inhalations, Symbicort, prednisone taper. Antibiotics in the form of Zerbaxa. She remains on oral diuretics. The patient is seen today December 31, 2024 in follow-up on the regular medical sanjuana or. She is currently awake and alert in no acute distress. Sitting up in a chair at the bedside. Maintaining O2 saturations in the 90s on 6 L high flow nasal cannula. She is afebrile. Hemodynamically stable. CT angiogram ruled out pulmonary embolism. There is no significant change in the lung opacities compared to December 28, 2024. Streaky opacities in the lung bases right greater than left thought to be combination of atelectasis versus airspace disease. Mild cardiomegaly with trace bilateral pleural effusions and pulmonary vascular congestion. Sputum culture revealed no growth. Sodium 139. Potassium 5.0. Bicarb 34. BUN 16. Creatinine 0.5. Glucose 73. She remains on Zerbaxa per ID service. Continued on DuoNeb inhalations, Symbicort, prednisone. Remains on oral diuretics. Home medications resumed. Objective - Vital Signs Vital signs: Vital Signs Temp 98.1 F 12/31/24 14:00 Pulse 62 12/31/24 14:00 Resp 17 12/31/24 14:00 BP 136/67 12/31/24 14:00 Pulse Ox 91 L 12/31/24 14:00 FiO2 Intake & Output 12/30/24 12/31/24 12/31/24 18:59 06:59 18:59 Intake Total 1620 Balance 1620 Intake: Oral 1620 Other: Voiding Method Bedside Commode Bedside Commode Diaper # Voids 4 2 # Bowel Movements 2 - Exam GENERAL EXAM: Alert, calm, comfortable 69-year-old female, up in a chair, on 6 L nasal cannula, not in any respiratory distress. HEAD: Normocephalic. EYES: Normal reaction of pupils, equal size. NOSE: Clear with pink turbinates. THROAT: No erythema or exudates. NECK: No masses, no JVD. CHEST: No chest wall deformity. LUNGS: Equal air entry with coarse rhonchi and wheeze bilaterally. CVS: S1 and S2 normal with no audible murmur, regular rhythm. ABDOMEN: No hepatosplenomegaly, normal bowel sounds, no guarding or rigidity. SPINE: No scoliosis or deformity SKIN: No rashes CENTRAL NERVOUS SYSTEM: No focal deficits, tone is normal in all 4 extremities. EXTREMITIES: There is no peripheral edema. No clubbing, no cyanosis. Peripheral pulses are intact. - Labs CBC & Chem 7: 12/30/24 05:18 12/31/24 03:38 Labs: Abnormal Lab Results - Last 24 Hours (Table) 12/30/24 12/30/24 12/30/24 Range/Units 16:16 19:04 21:12 D-Dimer 2.46 H (<0.60) mg/L FEU Chloride (96-109) mmol/L Carbon Dioxide (21.6-31.8) mmol/L Creatinine (0.6-1.5) mg/dL BUN/Creatinine Ratio (12.00-20.00) Ratio POC Glucose (mg/dL) 282 H 238 H (70-110) mg/dL 12/31/24 12/31/24 12/31/24 Range/Units 02:54 03:38 04:10 D-Dimer (<0.60) mg/L FEU Chloride 95 L (96-109) mmol/L Carbon Dioxide 34.2 H (21.6-31.8) mmol/L Creatinine 0.5 L (0.6-1.5) mg/dL BUN/Creatinine Ratio 32.60 H (12.00-20.00) Ratio POC Glucose (mg/dL) 48 L* 139 H (70-110) mg/dL 12/31/24 12/31/24 Range/Units 06:38 11:08 D-Dimer (<0.60) mg/L FEU Chloride (96-109) mmol/L Carbon Dioxide (21.6-31.8) mmol/L Creatinine (0.6-1.5) mg/dL BUN/Creatinine Ratio (12.00-20.00) Ratio POC Glucose (mg/dL) 125 H 124 H (70-110) mg/dL Microbiology - Last 24 Hours (Table) 12/28/24 15:20 Gram Stain - Final Sputum Sputum Culture - Final Assessment and Plan Assessment: Acute hypoxic respiratory failure secondary to an acute exacerbation of chronic obstructive pulmonary disease and resistant Pseudomonas aeruginosa. CT angiogram ruled out pulmonary embolism. There is no significant change in the lung opacities compared to December 28, 2024. Streaky opacities in the lung bases right greater than left thought to be combination of atelectasis versus airspace disease. Mild cardiomegaly with trace bilateral pleural effusions and pulmonary vascular congestion. Sputum culture from 12/25/2024 again positive for Pseudomonas aeruginosa, quite resistant, currently on Zerbaxa Left hemidiaphragm elevation possible paralysis Chronic obstructive pulmonary disease, with an FEV1 64% predicted, Gold stage II Chronic hypoxemic respiratory failure, secondary to combination of above Severe hyperglycemia Pseudohyponatremia, secondary to above Leukocytosis, possibly secondary to steroid use Sputum positive for MRSA 11/27/2024 Chronic ongoing tobacco dependence Hypothyroidism Hypertension History of mediastinal lymphadenopathy History of gastric bypass surgery Bipolar disorder Fibromyalgia and chronic pain syndrome Plan: The patient was seen and evaluated CT angiogram of the chest, labs and medications reviewed Resistant Pseudomonas in the sputum Continued on Zerbaxa Continue DuoNeb inhalations, Symbicort, Singulair Continue a prednisone taper Continue her anti-anxiety medications Titrate the FiO2 as tolerated Increase her activity as tolerated We will continue to follow I have personally seen and examined the patient, performed the documentation and the assessment and plan as written. Number of minutes spent on the visit: 10 Dictation was produced using [employer] software. Please excuse any grammatical, word or spelling errors.
[2024-12-31] MEDS ORDERED: ZINC OXIDE PASTE (Z-GUARD) 1 APPLIC TOPICAL PRN (15:24)
--- NOTE | 2024-12-31 15:26 | P.PN ---
Subjective Progress Note Date: 12/31/24 Principal diagnosis: Reason for follow-up is pneumonia MDRO Pseudomonas Patient is a 69-year-old female with a past medical history significant for Asthma, Heart Failure, COPD, Fibromyalgia, recurrent pneumonia presented to the hospital with increasing shortness of breath and cough has been diagnosed with pneumonia with recent sputum positive for drug-resistant Pseud omonas On today's evaluation it is 12/31/2024, Patient is afebrile patient is currently on 6 L nasal oxygen patient was sleepy in no distress no significant history provided no vomiting or diarrhea has been reported. Patient did have a creatinine 0.5 no CBC was done today sputum culture this admission has been negative Objective - Vital Signs Vital signs: Vital Signs Temp 98.1 F 12/31/24 14:00 Pulse 62 12/31/24 14:00 Resp 17 12/31/24 14:00 BP 136/67 12/31/24 14:00 Pulse Ox 91 L 12/31/24 14:00 FiO2 Intake & Output 12/30/24 12/31/24 12/31/24 18:59 06:59 18:59 Intake Total 1620 Balance 1620 Intake: Oral 1620 Other: Voiding Method Bedside Commode Bedside Commode Diaper # Voids 4 2 # Bowel Movements 2 - Exam GENERAL DESCRIPTION: An elderly female lying in bed in no distress RESPIRATORY SYSTEM: Unlabored breathing , decreased breath sounds at bases HEART: S1 S2 regular rate and rhythm , ABDOMEN: Soft , no tenderness EXTREMITIES: No edema feet - Labs CBC & Chem 7: 12/30/24 05:18 12/31/24 03:38 Labs: Abnormal Lab Results - Last 24 Hours (Table) 12/30/24 12/30/24 12/30/24 Range/Units 16:16 19:04 21:12 D-Dimer 2.46 H (<0.60) mg/L FEU Chloride (96-109) mmol/L Carbon Dioxide (21.6-31.8) mmol/L Creatinine (0.6-1.5) mg/dL BUN/Creatinine Ratio (12.00-20.00) Ratio POC Glucose (mg/dL) 282 H 238 H (70-110) mg/dL 12/31/24 12/31/24 12/31/24 Range/Units 02:54 03:38 04:10 D-Dimer (<0.60) mg/L FEU Chloride 95 L (96-109) mmol/L Carbon Dioxide 34.2 H (21.6-31.8) mmol/L Creatinine 0.5 L (0.6-1.5) mg/dL BUN/Creatinine Ratio 32.60 H (12.00-20.00) Ratio POC Glucose (mg/dL) 48 L* 139 H (70-110) mg/dL 12/31/24 12/31/24 Range/Units 06:38 11:08 D-Dimer (<0.60) mg/L FEU Chloride (96-109) mmol/L Carbon Dioxide (21.6-31.8) mmol/L Creatinine (0.6-1.5) mg/dL BUN/Creatinine Ratio (12.00-20.00) Ratio POC Glucose (mg/dL) 125 H 124 H (70-110) mg/dL Microbiology - Last 24 Hours (Table) 12/28/24 15:20 Gram Stain - Final Sputum Sputum Culture - Final Assessment and Plan (1) Sepsis Current Visit: Yes Status: Acute Code(s): A41.9 - SEPSIS, UNSPECIFIED ORGANISM SNOMED Code(s): 45711330 (2) Pseudomonas aeruginosa infection Current Visit: Yes Status: Acute Code(s): A49.8 - OTHER BACTERIAL INFECTIONS OF UNSPECIFIED SITE SNOMED Code(s): 49564771 (3) Pneumonia Current Visit: Yes Status: Acute Code(s): J18.9 - PNEUMONIA, UNSPECIFIED ORGANISM SNOMED Code(s): 493193790 (4) Allergy to multiple antibiotics Current Visit: No Status: Acute Code(s): Z88.1 - ALLERGY STATUS TO OTHER ANTIBIOTIC AGENTS SNOMED Code(s): 061081427 Plan: 1patient presented the hospital with sepsis in this patient who did have fever elevated lactic acid meeting criteria for SIRS/sepsis source is right lower lobe pneumonia with recent sputum culture positive for a drug-resistant Pseudomonas aeruginosa 2-patient with multiple antibiotic ALLERGIES that would limit the number of antibiotic safe to use 3patient currently being treated with Zerbaxa on the basis of recent sputum culture with multiresistant Pseudomonas, and will monitor clinical course c lawsonly Dictation was produced using [employer] dictation software. please excuse any grammatical, word or spelling errors. Time with Patient: Less than 30
[2024-12-31 16:46] LABS: Glucose,Whole Blood 327 mg/dL (70-110)
[2024-12-31] MEDS: DOCUSATE 100 MG CAP PO SCH (17:03)
[2024-12-31 20:29] LABS: Glucose,Whole Blood 186 mg/dL (70-110)
[2024-12-31] MEDS: OLANZapine 5 MG TAB PO ONE (22:09)
[2025-01-01 02:11] LABS: Glucose,Whole Blood 78 mg/dL (70-110)
[2025-01-01 06:17] LABS: Glucose,Whole Blood 80 mg/dL (70-110)
[2025-01-01 08:12] LABS: Basophils # (A) 0.09 X 10*3/uL (0.00-0.10); Basophils % (A) 0.5 %; Eosinophils # (A) 0.09 X 10*3/uL (0.04-0.35); Eosinophils % (A) 0.5 %; HCT 35.3 % (37.2-46.3); HGB 10.6 g/dL (12.0-15.0); Lymphocytes # (A) 1.83 X 10*3/uL (0.90-5.00); Lymphocytes % (A) 11.1 %; Mean Platelet Volume 10.3 FL (9.5-12.2); Monocytes # (A) 0.95 X 10*3/uL (0.20-1.00); Monocytes % (A) 5.7 %; NRBC Per 100 WBC 0 X 10*3/uL (0.00-0.01); Neutrophils # (A) 13.18 X 10*3/uL (1.80-7.70); Neutrophils % (A) 79.8 %; Platelet Count 232 X 10*3/uL (140-440); RBC 3.53 X 10*6/uL (4.10-5.20); RDW 14.3 % (11.5-14.5); WBC 16.53 X 10*3/uL (4.50-10.00)
[2025-01-01 08:26] LABS: Blood Urea Nitrogen 17.6 mg/dL (9.0-27.0); Calcium 9.2 mg/dL (8.7-10.3); Carbon Dioxide 37.7 mmol/L (21.6-31.8); Chloride 94 mmol/L (96-109); Glucose 89 mg/dL (70-110); Potassium 4.5 mmol/L (3.5-5.5); Sodium 139 mmol/L (135-145)
[2025-01-01] MEDS: LACTULOSE 20 GM/30 ML CUP PO ONE (10:11)
[2025-01-01 11:49] LABS: Glucose,Whole Blood 227 mg/dL (70-110)
--- NOTE | 2025-01-01 16:24 | P.PN ---
Subjective Progress Note Date: 01/01/25 Pulmonary consultation was requested. Readmission less than 24 hours for acute COPD exacerbation. Recently discharged from the hospital less than 24 hours ago on a steroid taper with Levaquin to be completed at home. Her sputum was previously positive for Pseudomonas aeruginosa. When she got home, she developed some respiratory distress and states she could not catch her breath. She continues to have congested nonproductive cough. Workup in the emergency department including repeat chest showing mostly chronic findings. Left hemidiaphragm elevation, right lung linear atelectasis. Labs include a CBC with a WBC count of 21.5 which is trending down, hemoglobin 11.3 g/dL, platelets 282. CMP: Sodium 129, potassium 4.5, chloride 92, serum bicarb 31, BUN 38, creatinine 0.61, glucose 592. Magnesium 1.9. Lactic was 3.3 and is down to 2. NT proBNP 2780. Patient currently being evaluated emergency department. She is sitting up in bed, on 3 L/min nasal cannula which she wears at home. Does not appear to be any respiratory distress. Continues to have congested cough. No significant sputum production, hemoptysis, chest pain, fevers or chills. No lower extremity edema, chest pain, heart palpitations, or syncope. Did receive a one-time dose of Levaquin in the ED. Normal saline infusing at 75 mL/h. Also, her prednisone taper was resumed. Most recent [id number] glucose down to 239. Current vital signs: Temperature 97.6 F, heart rate 71 bpm, blood pressure 107/51 mmHg, nontachypneic, SpO2 recorded at 98% on 3 L/min nasal cannula. The patient was seen today December 29, 2024 in follow-up on the regular medical floor. She is currently sitting up in a chair at the bedside. Awake and alert in no acute distress. Maintaining good O2 saturations in the 90s on 3 L/min per nasal cannula. She is having some complaints of nausea today. She has a loose congested cough. Some bilateral wheezing. CT scan of the chest revealed bibasilar infiltrates right greater than left. Small right pleural effusion. Mild to moderate cardiomegaly. Sodium 134. Potassium 3.9. Bicarb 37. BUN 20. Creatinine 0.47. Glucose 72. She remains on Symbicort and Singulair. Continued on prednisone taper. Recent sputum culture reveals a resistant Pseudomonas aeruginosa. She has been initiated on Zerbaxa per ID service. The patient is seen today December 30, 2024 in follow-up on the regular medical floor. She is currently sitting up in a chair at the bedside. Awake and alert in no acute distress. Maintaining O2 saturations in the 90s on 3 L/min per nasal cannula. Afebrile. Hemodynamically stable. Sputum culture revealed no growth. White count 13.8. Hemoglobin 14.4. Platelets 248. Sodium 142. Potassium 4.4. Bicarb 38. BUN 19. Creatinine 0.4. Glucose 177. She remains on DuoNeb inhalations, Symbicort, prednisone taper. Antibiotics in the form of Zerbaxa. She remains on oral diuretics. The patient is seen today December 31, 2024 in follow-up on the regular medical sanjuana or. She is currently awake and alert in no acute distress. Sitting up in a chair at the bedside. Maintaining O2 saturations in the 90s on 6 L high flow nasal cannula. She is afebrile. Hemodynamically stable. CT angiogram ruled out pulmonary embolism. There is no significant change in the lung opacities compared to December 28, 2024. Streaky opacities in the lung bases right greater than left thought to be combination of atelectasis versus airspace disease. Mild cardiomegaly with trace bilateral pleural effusions and pulmonary vascular congestion. Sputum culture revealed no growth. Sodium 139. Potassium 5.0. Bicarb 34. BUN 16. Creatinine 0.5. Glucose 73. She remains on Zerbaxa per ID service. Continued on DuoNeb inhalations, Symbicort, prednisone. Remains on oral diuretics. Home medications resumed. The patient is seen today January 01, 2025 in follow-up on the regular medical floor. She is currently sitting up in a chair at the bedside. Awake and alert in no acute distress. Maintaining O2 saturations in the 90s on 4 L/min per nasal cannula. She remains on Zerbaxa. Continued on DuoNeb inhalations, Symbicort, Singulair. Heparin for DVT prophylaxis. Remains on oral diuretics. Sputum culture revealed no growth. White count 16.5. Hemoglobin 10.6. Platelets 232. Sodium 139. Potassium 4.5. Bicarb 38. BUN 18. Creatinine 0.4. Glucose 89. Procalcitonin negative at 0.35. Objective - Vital Signs Vital signs: Vital Signs Temp 98.8 F 01/01/25 13:30 Pulse 80 01/01/25 15:39 Resp 18 01/01/25 13:30 BP 142/75 01/01/25 13:30 Pulse Ox 95 01/01/25 13:30 FiO2 Intake & Output 12/31/24 01/01/25 01/01/25 18:59 06:59 18:59 Intake Total 1740 Balance 1740 Intake: Oral 1740 Other: Voiding Method Bedside Commode Bedside Commode Diaper Diaper # Voids 6 2 1 - Exam GENERAL EXAM: Alert, 69-year-old female, up in a chair, on 4 L nasal cannula, not in any respiratory distress. HEAD: Normocephalic. EYES: Normal reaction of pupils, equal size. NOSE: Clear with pink turbinates. THROAT: No erythema or exudates. NECK: No masses, no JVD. CHEST: No chest wall deformity. LUNGS: Equal air entry with coarse rhonchi and wheeze bilaterally. CVS: S1 and S2 normal with no audible murmur, regular rhythm. ABDOMEN: No hepatosplenomegaly, normal bowel sounds, no guarding or rigidity. SPINE: No scoliosis or deformity SKIN: No rashes CENTRAL NERVOUS SYSTEM: No focal deficits, tone is normal in all 4 extremities. EXTREMITIES: There is no peripheral edema. No clubbing, no cyanosis. Peripheral pulses are intact. - Labs CBC & Chem 7: 01/01/25 03:39 01/01/25 03:39 Labs: Abnormal Lab Results - Last 24 Hours (Table) 12/31/24 12/31/24 01/01/25 Range/Units 16:45 20:27 03:39 WBC 16.53 H (4.50-10.00) X 10*3/uL RBC 3.53 L (4.10-5.20) X 10*6/uL Hgb 10.6 L (12.0-15.0) g/dL Hct 35.3 L (37.2-46.3) % MCV 100.0 H (80.0-97.0) FL MCHC 30.0 L (32.0-37.0) g/dL Immature Gran # 0.39 H (0.00-0.04) X 10*3/uL Neutrophils # 13.18 H (1.80-7.70) X 10*3/uL Chloride (96-109) mmol/L Carbon Dioxide (21.6-31.8) mmol/L Creatinine (0.6-1.5) mg/dL BUN/Creatinine Ratio (12.00-20.00) Ratio POC Glucose (mg/dL) 327 H 186 H (70-110) mg/dL 01/01/25 01/01/25 Range/Units 03:39 11:48 WBC (4.50-10.00) X 10*3/uL RBC (4.10-5.20) X 10*6/uL Hgb (12.0-15.0) g/dL Hct (37.2-46.3) % MCV (80.0-97.0) FL MCHC (32.0-37.0) g/dL Immature Gran # (0.00-0.04) X 10*3/uL Neutrophils # (1.80-7.70) X 10*3/uL Chloride 94 L (96-109) mmol/L Carbon Dioxide 37.7 H (21.6-31.8) mmol/L Creatinine 0.4 L (0.6-1.5) mg/dL BUN/Creatinine Ratio 44.00 H (12.00-20.00) Ratio POC Glucose (mg/dL) 227 H (70-110) mg/dL Assessment and Plan Assessment: Acute hypoxic respiratory failure secondary to an acute exacerbation of chronic obstructive pulmonary disease and resistant Pseudomonas aeruginosa. CT angiogram ruled out pulmonary embolism. There is no significant change in the lung opacities compared to December 28, 2024. Streaky opacities in the lung bases right greater than left thought to be combination of atelectasis versus airspace disease. Mild cardiomegaly with trace bilateral pleural effusions and pulmonary vascular congestion. Sputum culture from 12/25/2024 again positive for Pseudomonas aeruginosa, quite resistant, currently on Zerbaxa. Sputum culture this admission reveals no growth. Procalcitonin negative Left hemidiaphragm elevation possible paralysis Chronic obstructive pulmonary disease, with an FEV1 64% predicted, Gold stage II Chronic hypoxemic respiratory failure, secondary to combination of above Severe hyperglycemia Pseudohyponatremia, secondary to above Leukocytosis, possibly secondary to steroid use Sputum positive for MRSA 11/27/2024 Chronic ongoing tobacco dependence Hypothyroidism Hypertension History of mediastinal lymphadenopathy History of gastric bypass surgery Bipolar disorder Fibromyalgia and chronic pain syndrome Plan: The patient was seen and evaluated Labs and medications reviewed Resistant Pseudomonas in the sputum Continued on Zerbaxa Follow-up sputum culture revealed no growth Continue DuoNeb inhalations, Symbicort, Singulair Titrate the FiO2 as tolerated Increase her activity as tolerated We will continue to follow I have personally seen and examined the patient, performed the documentation and the assessment and plan as written. Number of minutes spent on the visit: 10 Dictation was produced using [employer] dictation software. Please excuse any grammatical, word or spelling errors.
[2025-01-01 16:54] LABS: Glucose,Whole Blood 325 mg/dL (70-110)
--- NOTE | 2025-01-01 17:03 | P.PN ---
Subjective Progress Note Date: 01/01/25 Patient is evaluated on the medical floor. She came back into the hospital because of a fall with right knee pain. Imaging reveals no acute fracture or dislocation as well as no joint effusion. She was evaluated by orthopedics because of this and the pain to her knee has essentially resolved. They are recommending a lidocaine patch as needed and follow-up with orthopedics on discharge. Patient continues on IV Zerbaxa for the positive sputum culture with pseudomonas and ID is following closely. She reports continued sputum production thick in nature. Was also having episodes of emesis although reports that she has not had a good sized bowel movement in the last 5 days. She does not want any rectal medications or any liquid laxatives. She states that she like to only try a pill for her constipation at this time. This may not be that effective however we will follow-up with the patient if she is still unable to have a bowel movement. Labs today reviewed sodium level of 134 potassium 3.9, BUN of 20 creatinine of 0.47. Blood glucose of 101. She is taken off of the long-acting insulin and will continue only on sliding scale as needed as she is having episodes of hypoglycemia. She continues on oral prednisone. Her white blood cell count is currently pending from today. She will require rehab on discharge. 12/30/2024 Patient evaluated today resting in the chair. Has a pain in her left upper abdomen. Feels anxious. States her brother is hospitalized at [facility] and not doing well. Initial sputum reveals pseudomonas aueroginosa, surinder albicans, and corynebacterium striatum group however sputum was repeated on 12/28 and reports as normal farooq. WBC 13.81, hgb 11.4. Sodium 142, potassium 4.4. BUN 18.8, creatinine 0.4. Glucose was low this AM. 12/31/2024 Patient evaluated in follow-up on the medical floor. She does report feeling better than yesterday and states that the pain in her upper abdomen is gone and she is less anxious. Her repeat sputum was negative so far she continues on IV zerbaxa with ID following closely. She has not had a bowel movement. Blood glucose is better without episodes of hypoglycemia and she remains off the Lantus. She continues on sliding scale insulin only. Patient evaluated today in follow up on the medical floor. Still has not had BM. Continues on oxygen via nasal cannula at 4L. Continues on IV zerbaxa for 10 days total of antibiotic therapy currently on day #3. Authorization has been obtained for rehab however awaiting if they can accommodate the patient on zerbaxa. WBC 16.53. Procalcitonin 0.35. Review of Systems Constitutional: Denied any fatigue denied any fever. Cardio vascular: denied any chest pain, palpitations Gastrointestinal: denied any nausea, vomiting, diarrhea Reports constipation Pulmonary: Reports shortness of breath, reports cough and sputum production Neurologic denied any new focal deficits All inpatient medications were reviewed and appropriate changes in these medications as dictated in the interval history and assessment and plan. PHYSICAL EXAMINATION: GENERAL: The patient is alert and oriented x3, not in any acute distress. Well developed, well nourished. HEENT: Pupils are round and equally reacting to light. EOMI. No scleral icterus. No conjunctival pallor. Normocephalic, atraumatic. No pharyngeal erythema. No thyromegaly. CARDIOVASCULAR: S1 and S2 present. No murmurs, rubs, or gallops. PULMONARY: Coarse ronchi throughout ABDOMEN: Soft, nontender, nondistended, Hypoactive bowel sounds. No palpable organomegaly. MUSCULOSKELETAL: No joint swelling or deformity. Right knee pain. EXTREMITIES: No cyanosis, clubbing, or pedal edema. NEUROLOGICAL: Gross neurological examination did not reveal any focal deficits. Generalized weakness SKIN: No rashes. Assessment -Fall with right knee pain -Weakness and medical debility requiring ERIBERTO on discharge -Acute on chronic hypoxic/Hypercapnic respiratory failure and chronically wears 3 L outpatient -Pneumonia, present on admission -Leukocytosis secondary to above -Sputum culture positive for drug-resistant Pseudomonas; positive for MRSA back in November 2024 -Hyponatremia, hypovolemic improving -Hyperglycemia treated with long-acting insulin and now hypoglycemic -Lactic acidosis -Acute exacerbation COPD -Constipation -Hypertension -Anxiety/depression/bipolar disorder -Hypothyroidism -Thyroid nodule 2.[address] f/u ultrasound recommended -Obesity with a BMI of 36.8 -Continued ongoing nicotine dependence -History of mediastinal lymphadenopathy -Fibromyalgia and chronic pain syndrome -Diabetes Mellitus type 2 hemoglobin A1C 7.7. -Bipolar -THC use -GI prophylaxis -DVT prophylaxis Plan Continue IV zerbaxa with ID following Continue Duonebs scheduled and PRN Continue oral prednisone 40 mg for 5 doses Stop lantus and continue accuchecks ACHS and sliding scale insulin Patient has no documented history of diabetes however has had multiple and frequent hospitalizations for COPD/Pneumonia and has been maintained on steroids frequently over the last few months this is likely contributing to her elevated hemoglobin A1C of 7.7. Will adjust medications as needed and continue with close monitoring of her blood glucose Orthopedics following pRN and recommending lidocaine patch for the right knee and PT eval, outpatient follow up Pulmonology following Add dulcolax daily, add miralax, lactulose x 1. Social work following for DC planning The impression and plan of care has been dictated by Casandra Jimenez, Nurse Practitioner as directed. Dr. Micky MD I have performed a history and physical examination and medical decision making of this patient, discussed the same with the dictator, and agree with the dictators assessment and plan as written, documented as a scribe. Based on total visit time, I have performed more than 50% of this visit. Objective - Vital Signs Vital signs: Vital Signs Temp 98.8 F 01/01/25 13:30 Pulse 80 01/01/25 15:39 Resp 18 01/01/25 13:30 BP 142/75 01/01/25 13:30 Pulse Ox 95 01/01/25 13:30 FiO2 Intake & Output 12/31/24 01/01/25 01/01/25 18:59 06:59 18:59 Intake Total 1740 Balance 1740 Intake: Oral 1740 Other: Voiding Method Bedside Commode Bedside Commode Diaper Diaper # Voids 6 2 1 - Labs CBC & Chem 7: 01/01/25 03:39 01/01/25 03:39 Labs: Abnormal Lab Results - Last 24 Hours (Table) 12/31/24 01/01/25 01/01/25 Range/Units 20:27 03:39 03:39 WBC 16.53 H (4.50-10.00) X 10*3/uL RBC 3.53 L (4.10-5.20) X 10*6/uL Hgb 10.6 L (12.0-15.0) g/dL Hct 35.3 L (37.2-46.3) % MCV 100.0 H (80.0-97.0) FL MCHC 30.0 L (32.0-37.0) g/dL Immature Gran # 0.39 H (0.00-0.04) X 10*3/uL Neutrophils # 13.18 H (1.80-7.70) X 10*3/uL Chloride 94 L (96-109) mmol/L Carbon Dioxide 37.7 H (21.6-31.8) mmol/L Creatinine 0.4 L (0.6-1.5) mg/dL BUN/Creatinine Ratio 44.00 H (12.00-20.00) Ratio POC Glucose (mg/dL) 186 H (70-110) mg/dL 01/01/25 01/01/25 Range/Units 11:48 16:52 WBC (4.50-10.00) X 10*3/uL RBC (4.10-5.20) X 10*6/uL Hgb (12.0-15.0) g/dL Hct (37.2-46.3) % MCV (80.0-97.0) FL MCHC (32.0-37.0) g/dL Immature Gran # (0.00-0.04) X 10*3/uL Neutrophils # (1.80-7.70) X 10*3/uL Chloride (96-109) mmol/L Carbon Dioxide (21.6-31.8) mmol/L Creatinine (0.6-1.5) mg/dL BUN/Creatinine Ratio (12.00-20.00) Ratio POC Glucose (mg/dL) 227 H 325 H (70-110) mg/dL Assessment and Plan Time with Patient: Less than 30
[2025-01-01 19:56] LABS: Glucose,Whole Blood 320 mg/dL (70-110)
[2025-01-01] MEDS: OLANZapine 7.5 MG TAB PO SCH (22:21)
[2025-01-02 00:09] LABS: Glucose,Whole Blood 121 mg/dL (70-110)
[2025-01-02 06:04] LABS: Glucose,Whole Blood 60 mg/dL (70-110)
[2025-01-02 06:53] LABS: Glucose,Whole Blood 82 mg/dL (70-110)
[2025-01-02 08:38] LABS: Basophils # (A) 0.04 X 10*3/uL (0.00-0.10); Basophils % (A) 0.3 %; Eosinophils # (A) 0.07 X 10*3/uL (0.04-0.35); Eosinophils % (A) 0.5 %; HCT 34.8 % (37.2-46.3); HGB 10.4 g/dL (12.0-15.0); Lymphocytes # (A) 2.74 X 10*3/uL (0.90-5.00); Lymphocytes % (A) 21.4 %; MCH 30.1 pg (27.0-32.0); MCHC 29.9 g/dL (32.0-37.0); MCV 100.6 FL (80.0-97.0); Mean Platelet Volume 9.8 FL (9.5-12.2); Monocytes # (A) 0.93 X 10*3/uL (0.20-1.00); Monocytes % (A) 7.2 %; NRBC Per 100 WBC 0 X 10*3/uL (0.00-0.01); Neutrophils # (A) 8.53 X 10*3/uL (1.80-7.70); Neutrophils % (A) 66.5 %; Platelet Count 242 X 10*3/uL (140-440); RBC 3.46 X 10*6/uL (4.10-5.20); RDW 14.3 % (11.5-14.5); WBC 12.83 X 10*3/uL (4.50-10.00)
[2025-01-02 08:45] LABS: Calcium 8.8 mg/dL (8.7-10.3); Carbon Dioxide 41.7 mmol/L (21.6-31.8); Chloride 93 mmol/L (96-109); Glucose 42 mg/dL (70-110); Potassium 4.8 mmol/L (3.5-5.5); Sodium 138 mmol/L (135-145)
[2025-01-02] MEDS: FUROSEMIDE 10 MG/ML 2 ML VIAL IV ONE (09:32)
--- NOTE | 2025-01-02 11:10 | P.PN ---
Subjective Progress Note Date: 01/02/25 Patient is evaluated on the medical floor. She came back into the hospital because of a fall with right knee pain. Imaging reveals no acute fracture or dislocation as well as no joint effusion. She was evaluated by orthopedics because of this and the pain to her knee has essentially resolved. They are recommending a lidocaine patch as needed and follow-up with orthopedics on discharge. Patient continues on IV Zerbaxa for the positive sputum culture with pseudomonas and ID is following closely. She reports continued sputum production thick in nature. Was also having episodes of emesis although reports that she has not had a good sized bowel movement in the last 5 days. She does not want any rectal medications or any liquid laxatives. She states that she like to only try a pill for her constipation at this time. This may not be that effective however we will follow-up with the patient if she is still unable to have a bowel movement. Labs today reviewed sodium level of 134 potassium 3.9, BUN of 20 creatinine of 0.47. Blood glucose of 101. She is taken off of the long-acting insulin and will continue only on sliding scale as needed as she is having episodes of hypoglycemia. She continues on oral prednisone. Her white blood cell count is currently pending from today. She will require rehab on discharge. 12/30/2024 Patient evaluated today resting in the chair. Has a pain in her left upper abdomen. Feels anxious. States her brother is hospitalized at [facility] and not doing well. Initial sputum reveals pseudomonas aueroginosa, surinder albicans, and corynebacterium striatum group however sputum was repeated on 12/28 and reports as normal farooq. WBC 13.81, hgb 11.4. Sodium 142, potassium 4.4. BUN 18.8, creatinine 0.4. Glucose was low this AM. 12/31/2024 Patient evaluated in follow-up on the medical floor. She does report feeling better than yesterday and states that the pain in her upper abdomen is gone and she is less anxious. Her repeat sputum was negative so far she continues on IV zerbaxa with ID following closely. She has not had a bowel movement. Blood glucose is better without episodes of hypoglycemia and she remains off the Lantus. She continues on sliding scale insulin only. Patient evaluated today in follow up on the medical floor. Still has not had BM. Continues on oxygen via nasal cannula at 4L. Continues on IV zerbaxa for 10 days total of antibiotic therapy currently on day #3. Authorization has been obtained for rehab however awaiting if they can accommodate the patient on zerbaxa. WBC 16.53. Procalcitonin 0.35. 01/02/2025 . Patient evaluated in follow-up in the medical floor. She will receive IV Lasix x 1 today. She continues on oxygen via nasal cannula with saturations of 91% on 4 L. She states that she feels like a fish out of water. Patient is currently on a 10-day course of IV Zerbaxa for the Pseudomonas in the sputum. She will not be able to discharge to rehab until this has been completed. White blood cell count today is better at 12.83, hemoglobin 10.4, sodium of 138 potassium 4.8, CO2 level of 41.7 BUN of 17 creatinine 0.4. Procalcitonin level was 0.35. Review of Systems Constitutional: Denied any fatigue denied any fever. Cardio vascular: denied any chest pain, palpitations Gastrointestinal: denied any nausea, vomiting, diarrhea Reports constipation Pulmonary: Reports shortness of breath, reports cough and sputum production Neurologic denied any new focal deficits All inpatient medications were reviewed and appropriate changes in these medications as dictated in the interval history and assessment and plan. PHYSICAL EXAMINATION: GENERAL: The patient is alert and oriented x3, not in any acute distress. Well developed, well nourished. HEENT: Pupils are round and equally reacting to light. EOMI. No scleral icterus. No conjunctival pallor. Normocephalic, atraumatic. No pharyngeal erythema. No thyromegaly. CARDIOVASCULAR: S1 and S2 present. No murmurs, rubs, or gallops. PULMONARY: Coarse ronchi throughout ABDOMEN: Soft, nontender, nondistended, Hypoactive bowel sounds. No palpable organomegaly. MUSCULOSKELETAL: No joint swelling or deformity. Right knee pain. EXTREMITIES: No cyanosis, clubbing, or pedal edema. NEUROLOGICAL: Gross neurological examination did not reveal any focal deficits. Generalized weakness SKIN: No rashes. Assessment -Fall with right knee pain -Weakness and medical debility requiring ERIBERTO on discharge -Acute on chronic hypoxic/Hypercapnic respiratory failure and chronically wears 3 L outpatient -Pneumonia with sepsis, present on admission -Leukocytosis secondary to above -Sputum culture positive for drug-resistant Pseudomonas; positive for MRSA back in November 2024 -Hyponatremia, hypovolemic improving -Hyperglycemia treated with long-acting insulin and now hypoglycemic -Lactic acidosis -Acute exacerbation COPD -Constipation -Hypertension -Anxiety/depression/bipolar disorder -Hypothyroidism -Thyroid nodule 2.[address] f/u ultrasound recommended -Obesity with a BMI of 36.8 -Continued ongoing nicotine dependence -History of mediastinal lymphadenopathy -Fibromyalgia and chronic pain syndrome -Diabetes Mellitus type 2 hemoglobin A1C 7.7. -Bipolar -THC use -GI prophylaxis -DVT prophylaxis Plan Continue IV zerbaxa with ID following requires a 10-day course of this for the sputum culture showing Pseudomonas her repeat sputum culture is negative so far. Continue Duonebs scheduled and PRN 20 mg IV Lasix x 1 Stop lantus and continue accuchecks ACHS and sliding scale insulin Patient has no documented history of diabetes however has had multiple and frequent hospitalizations for COPD/Pneumonia and has been maintained on steroids frequently over the last few months this is likely contributing to her elevated hemoglobin A1C of 7.7. Will adjust medications as needed and continue with close monitoring of her blood glucose Orthopedics following pRN and recommending lidocaine patch for the right knee and PT eval, outpatient follow up Pulmonology following Add dulcolax daily, add miralax, dulcolax rectal X1 Social work following for DC planning The impression and plan of care has been dictated by Casandra Jimenez, Nurse Practitioner as directed. Dr. Micky MD I have performed a history and physical examination and medical decision making of this patient, discussed the same with the dictator, and agree with the dictators assessment and plan as written, documented as a scribe. Based on total visit time, I have performed more than 50% of this visit. Objective - Vital Signs Vital signs: Vital Signs Temp 98.0 F 01/02/25 07:13 Pulse 64 01/02/25 09:41 Resp 18 01/02/25 09:58 BP 165/68 01/02/25 07:13 Pulse Ox 97 01/02/25 09:26 FiO2 Intake & Output 01/01/25 01/02/25 01/02/25 18:59 06:59 18:59 Intake Total 480 Balance 480 Intake: Oral 480 Other: Voiding Method Bedside Commode Bedside Commode Diaper Diaper # Voids 0 3 1 - Labs CBC & Chem 7: 01/02/25 04:11 01/02/25 04:11 Labs: Abnormal Lab Results - Last 24 Hours (Table) 01/01/25 01/01/25 01/01/25 Range/Units 11:48 16:52 19:54 WBC (4.50-10.00) X 10*3/uL RBC (4.10-5.20) X 10*6/uL Hgb (12.0-15.0) g/dL Hct (37.2-46.3) % MCV (80.0-97.0) FL MCHC (32.0-37.0) g/dL Immature Gran # (0.00-0.04) X 10*3/uL Neutrophils # (1.80-7.70) X 10*3/uL Chloride (96-109) mmol/L Carbon Dioxide (21.6-31.8) mmol/L Anion Gap (4.00-12.00) mmol/L Creatinine (0.6-1.5) mg/dL BUN/Creatinine Ratio (12.00-20.00) Ratio Glucose (70-110) mg/dL POC Glucose (mg/dL) 227 H 325 H 320 H (70-110) mg/dL 01/02/25 01/02/25 01/02/25 Range/Units 00:08 04:11 04:11 WBC 12.83 H (4.50-10.00) X 10*3/uL RBC 3.46 L (4.10-5.20) X 10*6/uL Hgb 10.4 L (12.0-15.0) g/dL Hct 34.8 L (37.2-46.3) % MCV 100.6 H (80.0-97.0) FL MCHC 29.9 L (32.0-37.0) g/dL Immature Gran # 0.52 H (0.00-0.04) X 10*3/uL Neutrophils # 8.53 H (1.80-7.70) X 10*3/uL Chloride 93 L (96-109) mmol/L Carbon Dioxide 41.7 A* (21.6-31.8) mmol/L Anion Gap 3.30 L (4.00-12.00) mmol/L Creatinine 0.4 L (0.6-1.5) mg/dL BUN/Creatinine Ratio 42.50 H (12.00-20.00) Ratio Glucose 42 A* (70-110) mg/dL POC Glucose (mg/dL) 121 H (70-110) mg/dL 01/02/25 Range/Units 06:02 WBC (4.50-10.00) X 10*3/uL RBC (4.10-5.20) X 10*6/uL Hgb (12.0-15.0) g/dL Hct (37.2-46.3) % MCV (80.0-97.0) FL MCHC (32.0-37.0) g/dL Immature Gran # (0.00-0.04) X 10*3/uL Neutrophils # (1.80-7.70) X 10*3/uL Chloride (96-109) mmol/L Carbon Dioxide (21.6-31.8) mmol/L Anion Gap (4.00-12.00) mmol/L Creatinine (0.6-1.5) mg/dL BUN/Creatinine Ratio (12.00-20.00) Ratio Glucose (70-110) mg/dL POC Glucose (mg/dL) 60 L (70-110) mg/dL Assessment and Plan Time with Patient: Less than 30
[2025-01-02 12:01] LABS: Glucose,Whole Blood 122 mg/dL (70-110)
[2025-01-02] MEDS: bisacodyL 10 MG SUPP RECTAL STA (12:34)
--- NOTE | 2025-01-02 13:32 | P.PN ---
Subjective Progress Note Date: 01/02/25 Pulmonary consultation was requested. Readmission less than 24 hours for acute COPD exacerbation. Recently discharged from the hospital less than 24 hours ago on a steroid taper with Levaquin to be completed at home. Her sputum was previously positive for Pseudomonas aeruginosa. When she got home, she developed some respiratory distress and states she could not catch her breath. She continues to have congested nonproductive cough. Workup in the emergency department including repeat chest showing mostly chronic findings. Left hemidiaphragm elevation, right lung linear atelectasis. Labs include a CBC with a WBC count of 21.5 which is trending down, hemoglobin 11.3 g/dL, platelets 282. CMP: Sodium 129, potassium 4.5, chloride 92, serum bicarb 31, BUN 38, creatinine 0.61, glucose 592. Magnesium 1.9. Lactic was 3.3 and is down to 2. NT proBNP 2780. Patient currently being evaluated emergency department. She is sitting up in bed, on 3 L/min nasal cannula which she wears at home. Does not appear to be any respiratory distress. Continues to have congested cough. No significant sputum production, hemoptysis, chest pain, fevers or chills. No lower extremity edema, chest pain, heart palpitations, or syncope. Did receive a one-time dose of Levaquin in the ED. Normal saline infusing at 75 mL/h. Also, her prednisone taper was resumed. Most recent [id number] glucose down to 239. Current vital signs: Temperature 97.6 F, heart rate 71 bpm, blood pressure 107/51 mmHg, nontachypneic, SpO2 recorded at 98% on 3 L/min nasal cannula. The patient was seen today December 29, 2024 in follow-up on the regular medical floor. She is currently sitting up in a chair at the bedside. Awake and alert in no acute distress. Maintaining good O2 saturations in the 90s on 3 L/min per nasal cannula. She is having some complaints of nausea today. She has a loose congested cough. Some bilateral wheezing. CT scan of the chest revealed bibasilar infiltrates right greater than left. Small right pleural effusion. Mild to moderate cardiomegaly. Sodium 134. Potassium 3.9. Bicarb 37. BUN 20. Creatinine 0.47. Glucose 72. She remains on Symbicort and Singulair. Continued on prednisone taper. Recent sputum culture reveals a resistant Pseudomonas aeruginosa. She has been initiated on Zerbaxa per ID service. The patient is seen today December 30, 2024 in follow-up on the regular medical floor. She is currently sitting up in a chair at the bedside. Awake and alert in no acute distress. Maintaining O2 saturations in the 90s on 3 L/min per nasal cannula. Afebrile. Hemodynamically stable. Sputum culture revealed no growth. White count 13.8. Hemoglobin 14.4. Platelets 248. Sodium 142. Potassium 4.4. Bicarb 38. BUN 19. Creatinine 0.4. Glucose 177. She remains on DuoNeb inhalations, Symbicort, prednisone taper. Antibiotics in the form of Zerbaxa. She remains on oral diuretics. The patient is seen today December 31, 2024 in follow-up on the regular medical sanjuana or. She is currently awake and alert in no acute distress. Sitting up in a chair at the bedside. Maintaining O2 saturations in the 90s on 6 L high flow nasal cannula. She is afebrile. Hemodynamically stable. CT angiogram ruled out pulmonary embolism. There is no significant change in the lung opacities compared to December 28, 2024. Streaky opacities in the lung bases right greater than left thought to be combination of atelectasis versus airspace disease. Mild cardiomegaly with trace bilateral pleural effusions and pulmonary vascular congestion. Sputum culture revealed no growth. Sodium 139. Potassium 5.0. Bicarb 34. BUN 16. Creatinine 0.5. Glucose 73. She remains on Zerbaxa per ID service. Continued on DuoNeb inhalations, Symbicort, prednisone. Remains on oral diuretics. Home medications resumed. The patient is seen today January 01, 2025 in follow-up on the regular medical floor. She is currently sitting up in a chair at the bedside. Awake and alert in no acute distress. Maintaining O2 saturations in the 90s on 4 L/min per nasal cannula. She remains on Zerbaxa. Continued on DuoNeb inhalations, Symbicort, Singulair. Heparin for DVT prophylaxis. Remains on oral diuretics. Sputum culture revealed no growth. White count 16.5. Hemoglobin 10.6. Platelets 232. Sodium 139. Potassium 4.5. Bicarb 38. BUN 18. Creatinine 0.4. Glucose 89. Procalcitonin negative at 0.35. The patient is seen today January 02, 2025 in follow-up on the regular medical floor. She is awake and alert in no acute distress. Sitting up in a chair at the bedside. Maintaining good O2 saturations in the 90s on 4 L/min per nasal cannula. Denies any worsening shortness of breath, cough or congestion. She is continued on DuoNeb inhalations, Symbicort, Singulair. Heparin for DVT prophylaxis. Continued on oral diuretics. Currently on Zerbaxa. Sputum culture from December 25, 2024 was positive for Pseudomonas aeruginosa. Sputum culture on 12/28/2024 showed no growth. White count 12.8. Hemoglobin 10.4. Platelets 242. Sodium 138. Potassium 4.8. Bicarb 42. BUN 17. Creatinine 0.4. Glucose 122. Objective - Vital Signs Vital signs: Vital Signs Temp 98.0 F 01/02/25 07:13 Pulse 80 01/02/25 12:48 Resp 18 01/02/25 09:58 BP 165/68 01/02/25 07:13 Pulse Ox 97 01/02/25 09:26 FiO2 Intake & Output 01/01/25 01/02/25 01/02/25 18:59 06:59 18:59 Intake Total 480 Balance 480 Intake: Oral 480 Other: Voiding Method Bedside Commode Bedside Commode Diaper Diaper # Voids 0 3 1 - Exam GENERAL EXAM: Alert, pleasant 69-year-old female, up in a chair, on 4 L nasal cannula, in no acute distress distress. HEAD: Normocephalic. EYES: Normal reaction of pupils, equal size. NOSE: Clear with pink turbinates. THROAT: No erythema or exudates. NECK: No masses, no JVD. CHEST: No chest wall deformity. LUNGS: Equal air entry with coarse rhonchi and wheeze bilaterally. CVS: S1 and S2 normal with no audible murmur, regular rhythm. ABDOMEN: No hepatosplenomegaly, normal bowel sounds, no guarding or rigidity. SPINE: No scoliosis or deformity SKIN: No rashes CENTRAL NERVOUS SYSTEM: No focal deficits, tone is normal in all 4 extremities. EXTREMITIES: There is no peripheral edema. No clubbing, no cyanosis. Periphera l pulses are intact. - Labs CBC & Chem 7: 01/02/25 04:11 01/02/25 04:11 Labs: Abnormal Lab Results - Last 24 Hours (Table) 01/01/25 01/01/25 01/02/25 Range/Units 16:52 19:54 00:08 WBC (4.50-10.00) X 10*3/uL RBC (4.10-5.20) X 10*6/uL Hgb (12.0-15.0) g/dL Hct (37.2-46.3) % MCV (80.0-97.0) FL MCHC (32.0-37.0) g/dL Immature Gran # (0.00-0.04) X 10*3/uL Neutrophils # (1.80-7.70) X 10*3/uL Chloride (96-109) mmol/L Carbon Dioxide (21.6-31.8) mmol/L Anion Gap (4.00-12.00) mmol/L Creatinine (0.6-1.5) mg/dL BUN/Creatinine Ratio (12.00-20.00) Ratio Glucose (70-110) mg/dL POC Glucose (mg/dL) 325 H 320 H 121 H (70-110) mg/dL 01/02/25 01/02/25 01/02/25 Range/Units 04:11 04:11 06:02 WBC 12.83 H (4.50-10.00) X 10*3/uL RBC 3.46 L (4.10-5.20) X 10*6/uL Hgb 10.4 L (12.0-15.0) g/dL Hct 34.8 L (37.2-46.3) % MCV 100.6 H (80.0-97.0) FL MCHC 29.9 L (32.0-37.0) g/dL Immature Gran # 0.52 H (0.00-0.04) X 10*3/uL Neutrophils # 8.53 H (1.80-7.70) X 10*3/uL Chloride 93 L (96-109) mmol/L Carbon Dioxide 41.7 A* (21.6-31.8) mmol/L Anion Gap 3.30 L (4.00-12.00) mmol/L Creatinine 0.4 L (0.6-1.5) mg/dL BUN/Creatinine Ratio 42.50 H (12.00-20.00) Ratio Glucose 42 A* (70-110) mg/dL POC Glucose (mg/dL) 60 L (70-110) mg/dL 01/02/25 Range/Units 12:00 WBC (4.50-10.00) X 10*3/uL RBC (4.10-5.20) X 10*6/uL Hgb (12.0-15.0) g/dL Hct (37.2-46.3) % MCV (80.0-97.0) FL MCHC (32.0-37.0) g/dL Immature Gran # (0.00-0.04) X 10*3/uL Neutrophils # (1.80-7.70) X 10*3/uL Chloride (96-109) mmol/L Carbon Dioxide (21.6-31.8) mmol/L Anion Gap (4.00-12.00) mmol/L Creatinine (0.6-1.5) mg/dL BUN/Creatinine Ratio (12.00-20.00) Ratio Glucose (70-110) mg/dL POC Glucose (mg/dL) 122 H (70-110) mg/dL Assessment and Plan Assessment: Acute hypoxic respiratory failure secondary to an acute exacerbation of chronic obstructive pulmonary disease and resistant Pseudomonas aeruginosa. CT angiogram ruled out pulmonary embolism. There is no significant change in the lung opacities compared to December 28, 2024. Streaky opacities in the lung bases right greater than left thought to be combination of atelectasis versus airspace disease. Mild cardiomegaly with trace bilateral pleural effusions and pulmonary vascular congestion Sputum culture from 12/25/2024 again positive for Pseudomonas aeruginosa, quite resistant, currently on Zerbaxa. Sputum culture this admission reveals no growth. Procalcitonin negative Left hemidiaphragm elevation possible paralysis Chronic obstructive pulmonary disease, with an FEV1 64% predicted, Gold stage II Chronic hypoxemic respiratory failure, secondary to combination of above Severe hyperglycemia Pseudohyponatremia, secondary to above Leukocytosis, possibly secondary to steroid use Sputum positive for MRSA 11/27/2024 Chronic ongoing tobacco dependence Hypothyroidism Hypertension History of mediastinal lymphadenopathy History of gastric bypass surgery Bipolar disorder Fibromyalgia and chronic pain syndrome Plan: The patient was seen and evaluated Labs and medications reviewed Continued on Zerbaxa Follow-up sputum culture revealed no growth Continue DuoNeb inhalations, Symbicort, Singulair Titrate the FiO2 as tolerated Increase her activity as tolerated We will continue to follow I have personally seen and examined the patient, performed the documentation and the assessment and plan as written. Number of minutes spent on the visit: 10 Dictation was produced using [employer] dictation software. Please excuse any grammatical, word or spelling errors.
--- NOTE | 2025-01-02 16:49 | P.PN ---
Subjective Progress Note Date: 01/01/25 Principal diagnosis: Reason for follow-up is pneumonia MDRO Pseudomonas Patient is a 69-year-old female with a past medical history significant for Asthma, Heart Failure, COPD, Fibromyalgia, recurrent pneumonia presented to the hospital with increasing shortness of breath and cough has been diagnosed with pneumonia with recent sputum positive for drug-resistant Pseud omonas On today's evaluation it is 01/01/2025, patient has been afebrile, patient is breathing slightly comfortably and is currently on 4 L nasal oxygen, patient denies having any chest pain and cough has decreased in intensity, patient denies nausea vomiting or diarrhea and no abdominal pain Patient white count is slightly up to 16.53 today, creatinine 0.4 Objective - Vital Signs Vital signs: Vital Signs Temp 98.5 F 01/01/25 07:28 Pulse 68 01/01/25 11:56 Resp 16 01/01/25 07:28 BP 167/77 01/01/25 07:28 Pulse Ox 96 01/01/25 08:24 FiO2 Intake & Output 12/31/24 01/01/25 01/01/25 18:59 06:59 18:59 Intake Total 1740 Balance 1740 Intake: Oral 1740 Other: Voiding Method Bedside Commode Bedside Commode Diaper Diaper # Voids 6 2 1 - Exam GENERAL DESCRIPTION: An elderly female lying in bed in no distress RESPIRATORY SYSTEM: Unlabored breathing , decreased breath sounds at bases HEART: S1 S2 regular rate and rhythm , ABDOMEN: Soft , no tenderness EXTREMITIES: No edema feet - Labs CBC & Chem 7: 01/02/25 04:11 01/02/25 04:11 Labs: Abnormal Lab Results - Last 24 Hours (Table) 12/31/24 12/31/24 01/01/25 Range/Units 16:45 20:27 03:39 WBC 16.53 H (4.50-10.00) X 10*3/uL RBC 3.53 L (4.10-5.20) X 10*6/uL Hgb 10.6 L (12.0-15.0) g/dL Hct 35.3 L (37.2-46.3) % MCV 100.0 H (80.0-97.0) FL MCHC 30.0 L (32.0-37.0) g/dL Immature Gran # 0.39 H (0.00-0.04) X 10*3/uL Neutrophils # 13.18 H (1.80-7.70) X 10*3/uL Chloride (96-109) mmol/L Carbon Dioxide (21.6-31.8) mmol/L Creatinine (0.6-1.5) mg/dL BUN/Creatinine Ratio (12.00-20.00) Ratio POC Glucose (mg/dL) 327 H 186 H (70-110) mg/dL 01/01/25 01/01/25 Range/Units 03:39 11:48 WBC (4.50-10.00) X 10*3/uL RBC (4.10-5.20) X 10*6/uL Hgb (12.0-15.0) g/dL Hct (37.2-46.3) % MCV (80.0-97.0) FL MCHC (32.0-37.0) g/dL Immature Gran # (0.00-0.04) X 10*3/uL Neutrophils # (1.80-7.70) X 10*3/uL Chloride 94 L (96-109) mmol/L Carbon Dioxide 37.7 H (21.6-31.8) mmol/L Creatinine 0.4 L (0.6-1.5) mg/dL BUN/Creatinine Ratio 44.00 H (12.00-20.00) Ratio POC Glucose (mg/dL) 227 H (70-110) mg/dL Assessment and Plan (1) Sepsis Current Visit: Yes Status: Acute Code(s): A41.9 - SEPSIS, UNSPECIFIED ORGANISM SNOMED Code(s): 52330202 (2) Pseudomonas aeruginosa infection Current Visit: Yes Status: Acute Code(s): A49.8 - OTHER BACTERIAL INFECTIONS OF UNSPECIFIED SITE SNOMED Code(s): 50866419 (3) Pneumonia Current Visit: Yes Status: Acute Code(s): J18.9 - PNEUMONIA, UNSPECIFIED O RGANISM SNOMED Code(s): 916568167 (4) Allergy to multiple antibiotics Current Visit: No Status: Acute Code(s): Z88.1 - ALLERGY STATUS TO OTHER ANTIBIOTIC AGENTS SNOMED Code(s): 704386831 Plan: 1patient presented the hospital with sepsis in this patient who did have fever elevated lactic acid meeting criteria for SIRS/sepsis source is right lower lobe pneumonia with recent sputum culture positive for a drug-resistant Pseudomonas aeruginosa 2-patient with multiple antibiotic ALLERGIES that would limit the number of antibiotic safe to use 3patient noticed to have slight worsening of the white count to be monitored closely for now continue patient on Zerbaxa Dictation was produced using [employer] dictation software. please excuse any grammatical, word or spelling errors. Time with Patient: Less than 30
--- NOTE | 2025-01-02 16:50 | P.PN ---
Subjective Progress Note Date: 01/02/25 Principal diagnosis: Reason for follow-up is pneumonia MDRO Pseudomonas Patient is a 69-year-old female with a past medical history significant for Asthma, Heart Failure, COPD, Fibromyalgia, recurrent pneumonia presented to the hospital with increasing shortness of breath and cough has been diagnosed with pneumonia with recent sputum positive for drug-resistant Pseud omonas On today's evaluation it is 01/02/2025, Patient is afebrile this morning patient denies having any chest pain shortness of breath or cough, the patient is currently on room air, patient denies any abdominal pain no diarrhea no nausea no vomiting Patient white count is down to 12.83, creatinine 0.4 Objective - Vital Signs Vital signs: Vital Signs Temp 98.0 F 01/02/25 07:13 Pulse 80 01/02/25 12:48 Resp 18 01/02/25 09:58 BP 165/68 01/02/25 07:13 Pulse Ox 97 01/02/25 09:26 FiO2 Intake & Output 01/01/25 01/02/25 01/02/25 18:59 06:59 18:59 Intake Total 480 300 Balance 480 300 Intake: Oral 480 300 Other: Voiding Method Bedside Commode Bedside Commode Diaper Diaper # Voids 0 3 1 # Bowel Movements 1 - Exam GENERAL DESCRIPTION: An elderly female lying in bed in no distress RESPIRATORY SYSTEM: Unlabored breathing , decreased breath sounds at bases HEART: S1 S2 regular rate and rhythm , ABDOMEN: Soft , no tenderness EXTREMITIES: No edema feet - Labs CBC & Chem 7: 01/02/25 04:11 01/02/25 04:11 Labs: Abnormal Lab Results - Last 24 Hours (Table) 01/01/25 01/01/25 01/02/25 Range/Units 16:52 19:54 00:08 WBC (4.50-10.00) X 10*3/uL RBC (4.10-5.20) X 10*6/uL Hgb (12.0-15.0) g/dL Hct (37.2-46.3) % MCV (80.0-97.0) FL MCHC (32.0-37.0) g/dL Immature Gran # (0.00-0.04) X 10*3/uL Neutrophils # (1.80-7.70) X 10*3/uL Chloride (96-109) mmol/L Carbon Dioxide (21.6-31.8) mmol/L Anion Gap (4.00-12.00) mmol/L Creatinine (0.6-1.5) mg/dL BUN/Creatinine Ratio (12.00-20.00) Ratio Glucose (70-110) mg/dL POC Glucose (mg/dL) 325 H 320 H 121 H (70-110) mg/dL 01/02/25 01/02/25 01/02/25 Range/Units 04:11 04:11 06:02 WBC 12.83 H (4.50-10.00) X 10*3/uL RBC 3.46 L (4.10-5.20) X 10*6/uL Hgb 10.4 L (12.0-15.0) g/dL Hct 34.8 L (37.2-46.3) % MCV 100.6 H (80.0-97.0) FL MCHC 29.9 L (32.0-37.0) g/dL Immature Gran # 0.52 H (0.00-0.04) X 10*3/uL Neutrophils # 8.53 H (1.80-7.70) X 10*3/uL Chloride 93 L (96-109) mmol/L Carbon Dioxide 41.7 A* (21.6-31.8) mmol/L Anion Gap 3.30 L (4.00-12.00) mmol/L Creatinine 0.4 L (0.6-1.5) mg/dL BUN/Creatinine Ratio 42.50 H (12.00-20.00) Ratio Glucose 42 A* (70-110) mg/dL POC Glucose (mg/dL) 60 L (70-110) mg/dL 01/02/25 Range/Units 12:00 WBC (4.50-10.00) X 10*3/uL RBC (4.10-5.20) X 10*6/uL Hgb (12.0-15.0) g/dL Hct (37.2-46.3) % MCV (80.0-97.0) FL MCHC (32.0-37.0) g/dL Immature Gran # (0.00-0.04) X 10*3/uL Neutrophils # (1.80-7.70) X 10*3/uL Chloride (96-109) mmol/L Carbon Dioxide (21.6-31.8) mmol/L Anion Gap (4.00-12.00) mmol/L Creatinine (0.6-1.5) mg/dL BUN/Creatinine Ratio (12.00-20.00) Ratio Glucose (70-110) mg/dL POC Glucose (mg/dL) 122 H (70-110) mg/dL Assessment and Plan (1) Sepsis Current Visit: Yes Status: Acute Code(s): A41.9 - SEPSIS, UNSPECIFIED ORGANISM SNOMED Code(s): 77738343 (2) Pseudomonas aeruginosa infection Current Visit: Yes Status: Acute Code(s): A49.8 - OTHER BACTERIAL INFECTIONS OF UNSPECIFIED SITE SNOMED Code(s): 39866610 (3) Pneumonia Current Visit: Yes Status: Acute Code(s): J18.9 - PNEUMONIA, UNSPECIFIED ORGANISM SNOMED Code(s): 234712308 (4) Allergy to multiple antibiotics Current Visit: No Status: Acute Code(s): Z88.1 - ALLERGY STATUS TO OTHER ANTIBIOTIC AGENTS SNOMED Code(s): 373225966 Plan: 1patient presented the hospital with sepsis in this patient who did have fever elevated lactic acid meeting criteria for SIRS/sepsis source is right lower lobe pneumonia with recent sputum culture positive for a drug-resistant Pseudomonas aeruginosa 2-patient with multiple antibiotic ALLERGIES that would limit the number of an tibiotic safe to use 3patient white count is trending down we will keep the patient on the backside finish at least 7-day course of therapy Dictation was produced using [email or web address] dictation software. please excuse any grammatical, word or spelling errors.
[2025-01-02 16:56] LABS: Glucose,Whole Blood 163 mg/dL (70-110)
[2025-01-02 20:57] LABS: Glucose,Whole Blood 156 mg/dL (70-110)
[2025-01-03 00:21] LABS: Glucose,Whole Blood 99 mg/dL (70-110)
[2025-01-03 06:01] LABS: Glucose,Whole Blood 82 mg/dL (70-110)
[2025-01-03 08:47] LABS: BUN/Creat Ratio 36.33 Ratio (12.00-20.00); Blood Urea Nitrogen 21.8 mg/dL (9.0-27.0); Calcium 9.2 mg/dL (8.7-10.3); Carbon Dioxide 41.7 mmol/L (21.6-31.8); Chloride 92 mmol/L (96-109); Glucose 74 mg/dL (70-110); Potassium 4.7 mmol/L (3.5-5.5); Sodium 140 mmol/L (135-145)
[2025-01-03 09:31] LABS: Basophils # (A) 0.03 X 10*3/uL (0.00-0.10); Basophils % (A) 0.2 %; Eosinophils % (A) 0.8 %; HCT 36.2 % (37.2-46.3); HGB 10.8 g/dL (12.0-15.0); Lymphocytes # (A) 3.27 X 10*3/uL (0.90-5.00); Lymphocytes % (A) 26.8 %; MCH 30.2 pg (27.0-32.0); MCHC 29.8 g/dL (32.0-37.0); MCV 101.1 FL (80.0-97.0); Mean Platelet Volume 9.7 FL (9.5-12.2); Monocytes % (A) 8.2 %; NRBC Per 100 WBC 0 X 10*3/uL (0.00-0.01); Neutrophils # (A) 7.34 X 10*3/uL (1.80-7.70); Neutrophils % (A) 60.1 %; Platelet Count 237 X 10*3/uL (140-440); RBC 3.58 X 10*6/uL (4.10-5.20); RDW 14.4 % (11.5-14.5); WBC 12.22 X 10*3/uL (4.50-10.00)
[2025-01-03 11:36] VITALS: BMI 36.5
[2025-01-03 12:03] LABS: Glucose,Whole Blood 94 mg/dL (70-110)
--- NOTE | 2025-01-03 14:43 | P.PN ---
Subjective Progress Note Date: 01/03/25 Pulmonary consultation was requested. Readmission less than 24 hours for acute COPD exacerbation. Recently discharged from the hospital less than 24 hours ago on a steroid taper with Levaquin to be completed at home. Her sputum was previously positive for Pseudomonas aeruginosa. When she got home, she developed some respiratory distress and states she could not catch her breath. She continues to have congested nonproductive cough. Workup in the emergency department including repeat chest showing mostly chronic findings. Left hemidiaphragm elevation, right lung linear atelectasis. Labs include a CBC with a WBC count of 21.5 which is trending down, hemoglobin 11.3 g/dL, platelets 282. CMP: Sodium 129, potassium 4.5, chloride 92, serum bicarb 31, BUN 38, creatinine 0.61, glucose 592. Magnesium 1.9. Lactic was 3.3 and is down to 2. NT proBNP 2780. Patient currently being evaluated emergency department. She is sitting up in bed, on 3 L/min nasal cannula which she wears at home. Does not appear to be any respiratory distress. Continues to have congested cough. No significant sputum production, hemoptysis, chest pain, fevers or chills. No lower extremity edema, chest pain, heart palpitations, or syncope. Did receive a one-time dose of Levaquin in the ED. Normal saline infusing at 75 mL/h. Also, her prednisone taper was resumed. Most recent [id number] glucose down to 239. Current vital signs: Temperature 97.6 F, heart rate 71 bpm, blood pressure 107/51 mmHg, nontachypneic, SpO2 recorded at 98% on 3 L/min nasal cannula. The patient was seen today December 29, 2024 in follow-up on the regular medical floor. She is currently sitting up in a chair at the bedside. Awake and alert in no acute distress. Maintaining good O2 saturations in the 90s on 3 L/min per nasal cannula. She is having some complaints of nausea today. She has a loose congested cough. Some bilateral wheezing. CT scan of the chest revealed bibasilar infiltrates right greater than left. Small right pleural effusion. Mild to moderate cardiomegaly. Sodium 134. Potassium 3.9. Bicarb 37. BUN 20. Creatinine 0.47. Glucose 72. She remains on Symbicort and Singulair. Continued on prednisone taper. Recent sputum culture reveals a resistant Pseudomonas aeruginosa. She has been initiated on Zerbaxa per ID service. The patient is seen today December 30, 2024 in follow-up on the regular medical floor. She is currently sitting up in a chair at the bedside. Awake and alert in no acute distress. Maintaining O2 saturations in the 90s on 3 L/min per nasal cannula. Afebrile. Hemodynamically stable. Sputum culture revealed no growth. White count 13.8. Hemoglobin 14.4. Platelets 248. Sodium 142. Potassium 4.4. Bicarb 38. BUN 19. Creatinine 0.4. Glucose 177. She remains on DuoNeb inhalations, Symbicort, prednisone taper. Antibiotics in the form of Zerbaxa. She remains on oral diuretics. The patient is seen today December 31, 2024 in follow-up on the regular medical sanjuana or. She is currently awake and alert in no acute distress. Sitting up in a chair at the bedside. Maintaining O2 saturations in the 90s on 6 L high flow nasal cannula. She is afebrile. Hemodynamically stable. CT angiogram ruled out pulmonary embolism. There is no significant change in the lung opacities compared to December 28, 2024. Streaky opacities in the lung bases right greater than left thought to be combination of atelectasis versus airspace disease. Mild cardiomegaly with trace bilateral pleural effusions and pulmonary vascular congestion. Sputum culture revealed no growth. Sodium 139. Potassium 5.0. Bicarb 34. BUN 16. Creatinine 0.5. Glucose 73. She remains on Zerbaxa per ID service. Continued on DuoNeb inhalations, Symbicort, prednisone. Remains on oral diuretics. Home medications resumed. The patient is seen today January 01, 2025 in follow-up on the regular medical floor. She is currently sitting up in a chair at the bedside. Awake and alert in no acute distress. Maintaining O2 saturations in the 90s on 4 L/min per nasal cannula. She remains on Zerbaxa. Continued on DuoNeb inhalations, Symbicort, Singulair. Heparin for DVT prophylaxis. Remains on oral diuretics. Sputum culture revealed no growth. White count 16.5. Hemoglobin 10.6. Platelets 232. Sodium 139. Potassium 4.5. Bicarb 38. BUN 18. Creatinine 0.4. Glucose 89. Procalcitonin negative at 0.35. The patient is seen today January 02, 2025 in follow-up on the regular medical floor. She is awake and alert in no acute distress. Sitting up in a chair at the bedside. Maintaining good O2 saturations in the 90s on 4 L/min per nasal cannula. Denies any worsening shortness of breath, cough or congestion. She is continued on DuoNeb inhalations, Symbicort, Singulair. Heparin for DVT prophylaxis. Continued on oral diuretics. Currently on Zerbaxa. Sputum culture from December 25, 2024 was positive for Pseudomonas aeruginosa. Sputum culture on 12/28/2024 showed no growth. White count 12.8. Hemoglobin 10.4. Platelets 242. Sodium 138. Potassium 4.8. Bicarb 42. BUN 17. Creatinine 0.4. Glucose 122. The patient is seen today January 03, 2025 in follow-up on the regular medical floor. She is currently sitting up in a chair. Awake and alert in no acute distress. Maintaining good O2 saturations in the 90s on 4 L/min per nasal cannula. She has been afebrile. Hemodynamically stable. Sputum culture revealed no growth. White count 12.2. Hemoglobin 10.8. Platelets 237. Sodium 140. Potassium 4.7. Bicarb 42. BUN 22. Creatinine 0.6. Glucose 74. She remains on DuoNeb inhalations, Symbicort, Mucinex. Continued on oral diuretics. Continued on Zerbaxa for previous sputum culture positive for Pseudomonas aeruginosa on December 25, 2024. Objective - Vital Signs Vital signs: Vital Signs Temp 97.9 F 01/03/25 07:27 Pulse 79 01/03/25 13:02 Resp 18 01/03/25 07:27 BP 145/65 01/03/25 07:27 Pulse Ox 97 01/03/25 09:46 FiO2 Intake & Output 01/02/25 01/03/25 01/03/25 18:59 06:59 18:59 Intake Total 600 Balance 600 Weight 84.822 kg Intake: Oral 600 Other: Voiding Method Bedside Commode Bedside Commode Diaper Diaper # Voids 5 2 1 # Bowel Movements 1 - Exam GENERAL EXAM: Alert, 69-year-old female, up in a chair, on 4 L nasal cannula, in no acute distress. HEAD: Normocephalic. EYES: Normal reaction of pupils, equal size. NOSE: Clear with pink turbinates. THROAT: No erythema or exudates. NECK: No masses, no JVD. CHEST: No chest wall deformity. LUNGS: Equal air entry with coarse rhonchi and wheeze bilaterally. CVS: S1 and S2 normal with no audible murmur, regular rhythm. ABDOMEN: No hepatosplenomegaly, normal bowel sounds, no guarding or rigidity. SPINE: No scoliosis or deformity SKIN: No rashes CENTRAL NERVOUS SYSTEM: No focal deficits, tone is normal in all 4 extremities. EXTREMITIES: There is no peripheral edema. No clubbing, no cyanosis. Peripheral pulses are intact. - Labs CBC & Chem 7: 01/03/25 03:19 01/03/25 03:19 Labs: Abnormal Lab Results - Last 24 Hours (Table) 01/02/25 01/02/25 01/03/25 Range/Units 16:55 20:55 03:19 WBC 12.22 H (4.50-10.00) X 10*3/uL RBC 3.58 L (4.10-5.20) X 10*6/uL Hgb 10.8 L (12.0-15.0) g/dL Hct 36.2 L (37.2-46.3) % MCV 101.1 H (80.0-97.0) FL MCHC 29.8 L (32.0-37.0) g/dL Immature Gran # 0.48 H (0.00-0.04) X 10*3/uL Chloride (96-109) mmol/L Carbon Dioxide (21.6-31.8) mmol/L BUN/Creatinine Ratio (12.00-20.00) Ratio POC Glucose (mg/dL) 163 H 156 H (70-110) mg/dL 01/03/25 Range/Units 03:19 WBC (4.50-10.00) X 10*3/uL RBC (4.10-5.20) X 10*6/uL Hgb (12.0-15.0) g/dL Hct (37.2-46.3) % MCV (80.0-97.0) FL MCHC (32.0-37.0) g/dL Immature Gran # (0.00-0.04) X 10*3/uL Chloride 92 L (96-109) mmol/L Carbon Dioxide 41.7 A* (21.6-31.8) mmol/L BUN/Creatinine Ratio 36.33 H (12.00-20.00) Ratio POC Glucose (mg/dL) (70-110) mg/dL Assessment and Plan Assessment: Acute hypoxic respiratory failure secondary to an acute exacerbation of chronic obstructive pulmonary disease and resistant Pseudomonas aeruginosa. CT angiogram ruled out pulmonary embolism. There is no significant change in the lung opacities compared to December 28, 2024. Streaky opacities in the lung bases right greater than left thought to be combination of atelectasis versus airspace disease. Mild cardiomegaly with trace bilateral pleural effusions and pulmonary vascular congestion Sputum culture from 12/25/2024 positive for Pseudomonas aeruginosa, quite resistant, currently on Zerbaxa. Sputum culture this admission reveals no growth. Procalcitonin negative Left hemidiaphragm elevation possible paralysis Chronic obstructive pulmonary disease, with an FEV1 64% predicted, Gold stage II Chronic hypoxemic respiratory failure, secondary to combination of above Severe hyperglycemia Pseudohyponatremia, secondary to above Leukocytosis, possibly secondary to steroid use Sputum positive for MRSA 11/27/2024 Chronic ongoing tobacco dependence Hypothyroidism Hypertension History of mediastinal lymphadenopathy History of gastric bypass surgery Bipolar disorder Fibromyalgia and chronic pain syndrome Plan: The patient was seen and evaluated Labs and medications reviewed Continue DuoNeb inhalations, Symbicort, Singulair Continue Mucinex Continued on Zerbaxa Follow-up sputum culture revealed no growth Titrate the FiO2 as tolerated Increase her activity as tolerated Home once Zerbaxa completed We will continue to follow I have personally seen and examined the patient, performed the documentation and the assessment and plan as written. Number of minutes spent on the visit: 10 Dictation was produced using [employer] software. Please excuse any grammatical, word or spelling errors.
[2025-01-03 16:41] LABS: Glucose,Whole Blood 199 mg/dL (70-110)
[2025-01-03 21:02] LABS: Glucose,Whole Blood 170 mg/dL (70-110)
[2025-01-04 00:18] LABS: Glucose,Whole Blood 89 mg/dL (70-110)
[2025-01-04 01:55] LABS: Glucose,Whole Blood 88 mg/dL (70-110)
--- NOTE | 2025-01-04 05:50 | P.PN ---
Subjective Progress Note Date: 01/03/25 Patient is evaluated on the medical floor. She came back into the hospital because of a fall with right knee pain. Imaging reveals no acute fracture or dislocation as well as no joint effusion. She was evaluated by orthopedics because of this and the pain to her knee has essentially resolved. They are recommending a lidocaine patch as needed and follow-up with orthopedics on discharge. Patient continues on IV Zerbaxa for the positive sputum culture with pseudomonas and ID is following closely. She reports continued sputum production thick in nature. Was also having episodes of emesis although reports that she has not had a good sized bowel movement in the last 5 days. She does not want any rectal medications or any liquid laxatives. She states that she like to only try a pill for her constipation at this time. This may not be that effective however we will follow-up with the patient if she is still unable to have a bowel movement. Labs today reviewed sodium level of 134 potassium 3.9, BUN of 20 creatinine of 0.47. Blood glucose of 101. She is taken off of the long-acting insulin and will continue only on sliding scale as needed as she is having episodes of hypoglycemia. She continues on oral prednisone. Her white blood cell count is currently pending from today. She will require rehab on discharge. 12/30/2024 Patient evaluated today resting in the chair. Has a pain in her left upper abdomen. Feels anxious. States her brother is hospitalized at [facility] and not doing well. Initial sputum reveals pseudomonas aueroginosa, surinder albicans, and corynebacterium striatum group however sputum was repeated on 12/28 and reports as normal farooq. WBC 13.81, hgb 11.4. Sodium 142, potassium 4.4. BUN 18.8, creatinine 0.4. Glucose was low this AM. 12/31/2024 Patient evaluated in follow-up on the medical floor. She does report feeling better than yesterday and states that the pain in her upper abdomen is gone and she is less anxious. Her repeat sputum was negative so far she continues on IV zerbaxa with ID following closely. She has not had a bowel movement. Blood glucose is better without episodes of hypoglycemia and she remains off the Lantus. She continues on sliding scale insulin only. Patient evaluated today in follow up on the medical floor. Still has not had BM. Continues on oxygen via nasal cannula at 4L. Continues on IV zerbaxa for 10 days total of antibiotic therapy currently on day #3. Authorization has been obtained for rehab however awaiting if they can accommodate the patient on zerbaxa. WBC 16.53. Procalcitonin 0.35. 01/02/2025 . Patient evaluated in follow-up in the medical floor. She will receive IV Lasix x 1 today. She continues on oxygen via nasal cannula with saturations of 91% on 4 L. She states that she feels like a fish out of water. Patient is currently on a 10-day course of IV Zerbaxa for the Pseudomonas in the sputum. She will not be able to discharge to rehab until this has been completed. White blood cell count today is better at 12.83, hemoglobin 10.4, sodium of 138 potassium 4.8, CO2 level of 41.7 BUN of 17 creatinine 0.4. Procalcitonin level was 0.35. 01/03/2025 Patient is seen in follow-up today with no acute overnight issues noted. Patient continues to be weak and working with physical therapy will be going to [facility]. Patient is maintained on Zerbaxa per ID recommendations for at least 7 days and this was started on 12/29/2024. Patient will continue until early next week. Unfortunately patient cannot go to ECF with this medication as it is too expensive although patient has multiple allergies to medications and resistance to other medications. Patient being followed by pulmonary and will continue current regimen with breathing treatments and continued supportive care. En couraged increase activity as tolerated with sitting up in the chair more frequently. Patient denies any chest pain or palpitations and denies nausea or vomiting has been tolerating diet. Review of Systems Constitutional: Denied any fatigue denied any fever. Cardio vascular: denied any chest pain, palpitations Gastrointestinal: denied any nausea, vomiting, diarrhea Reports constipation Pulmonary: Reports shortness of breath, reports cough and sputum production Neurologic denied any new focal deficits, continues to be weak All inpatient medications were reviewed and appropriate changes in these medications as dictated in the interval history and assessment and plan. PHYSICAL EXAMINATION: GENERAL: The patient is alert and oriented x3, not in any acute distress. Well developed, elderly appearing, obese HEENT: Pupils are round and equally reacting to light. EOMI. No scleral icterus. No conjunctival pallor. Normocephalic, atraumatic. No pharyngeal erythema. No thyromegaly. CARDIOVASCULAR: S1 and S2 muffled PULMONARY: Coarse ronchi throughout ABDOMEN: Soft, nontender, nondistended, normoactive bowel sounds. No palpable organomegaly. MUSCULOSKELETAL: No joint swelling or deformity. Right knee pain. EXTREMITIES: No cyanosis, clubbing, or pedal edema. NEUROLOGICAL: Gross neurological examination did not reveal any focal deficits. Generalized weakness SKIN: No rashes. Assessment: -Fall with right knee pain -Weakness and medical debility requiring ERIBERTO on discharge -Acute on chronic hypoxic/Hypercapnic respiratory failure and chronically wears 3 L outpatient -Pneumonia with sepsis, present on admission -Leukocytosis secondary to above -Sputum culture positive for drug-resistant Pseudomonas; positive for MRSA back in November 2024 -Hyponatremia, hypovolemic improving -Hyperglycemia treated with long-acting insulin and now hypoglycemic -Lactic acidosis -Acute exacerbation COPD -Constipation -Hypertension -Anxiety/depression/bipolar disorder -Hypothyroidism -Thyroid nodule 2.[address] on Chest CT f/u ultrasound recommended -Obesity with a BMI of 36.8 -Continued ongoing nicotine dependence -History of mediastinal lymphadenopathy -Fibromyalgia and chronic pain syndrome -Diabetes Mellitus type 2 hemoglobin A1C 7.7. -Bipolar -THC use -GI prophylaxis -DVT prophylaxis Plan: Continue IV zerbaxa with ID following requires a 10-day course of this for the sputum culture showing Pseudomonas her repeat sputum culture is negative so far. Continue Duonebs scheduled and PRN continue monitoring accuchecks ACHS and sliding scale insulin and will adjust accordingly Patient has no documented history of diabetes however has had multiple and frequent hospitalizations for COPD/Pneumonia and has been maintained on steroids frequently over the last few months this is likely contributing to her elevated hemoglobin A1C of 7.7. Will adjust medications as needed and continue with close monitoring of her blood glucose Orthopedics following pRN and recommending lidocaine patch for the right knee and PT eval, outpatient follow up Pulmonology following recommending continuing current regimen and outpatient follow-up Continue bowel regimen scheduled as well as as needed Case management/social work following for DC planning and patient will course of Zerbaxa prior to discharge to [facility] The impression and plan of care has been dictated by Audrey Curtis, Nurse Practitioner as directed. Dr. Indigo MD I have performed a history and examination and MDM of this patient, discussed the same with the dictator, and agree with the dictator's assessment and plan as written ,documented as a scribe. Based on total visit time, I have performed more than 50% of the visit. Objective - Vital Signs Vital signs: Vital Signs Temp 97.9 F 01/04/25 00:24 Pulse 77 01/04/25 00:24 Resp 16 01/04/25 00:24 BP 114/59 01/04/25 00:24 Pulse Ox 99 01/04/25 00:24 FiO2 Intake & Output 01/03/25 01/03/25 01/04/25 06:59 18:59 06:59 Weight 84.822 kg Other: Voiding Method Bedside Commode Bedside Commode Diaper Diaper # Voids 2 1 2 - Labs CBC & Chem 7: 01/03/25 03:19 01/03/25 03:19 Labs: Abnormal Lab Results - Last 24 Hours (Table) 01/03/25 01/03/25 01/03/25 Range/Units 03:19 03:19 16:40 WBC 12.22 H (4.50-10.00) X 10*3/uL RBC 3.58 L (4.10-5.20) X 10*6/uL Hgb 10.8 L (12.0-15.0) g/dL Hct 36.2 L (37.2-46.3) % MCV 101.1 H (80.0-97.0) FL MCHC 29.8 L (32.0-37.0) g/dL Immature Gran # 0.48 H (0.00-0.04) X 10*3/uL Chloride 92 L (96-109) mmol/L Carbon Dioxide 41.7 A* (21.6-31.8) mmol/L BUN/Creatinine Ratio 36.33 H (12.00-20.00) Ratio POC Glucose (mg/dL) 199 H (70-110) mg/dL 01/03/25 Range/Units 21:00 WBC (4.50-10.00) X 10*3/uL RBC (4.10-5.20) X 10*6/uL Hgb (12.0-15.0) g/dL Hct (37.2-46.3) % MCV (80.0-97.0) FL MCHC (32.0-37.0) g/dL Immature Gran # (0.00-0.04) X 10*3/uL Chloride (96-109) mmol/L Carbon Dioxide (21.6-31.8) mmol/L BUN/Creatinine Ratio (12.00-20.00) Ratio POC Glucose (mg/dL) 170 H (70-110) mg/dL
[2025-01-04 06:05] LABS: Glucose,Whole Blood 95 mg/dL (70-110)
[2025-01-04 11:45] LABS: Glucose,Whole Blood 102 mg/dL (70-110)
--- NOTE | 2025-01-04 13:34 | P.PN ---
Subjective Progress Note Date: 01/04/25 Pulmonary consultation was requested. Readmission less than 24 hours for acute COPD exacerbation. Recently discharged from the hospital less than 24 hours ago on a steroid taper with Levaquin to be completed at home. Her sputum was previously positive for Pseudomonas aeruginosa. When she got home, she developed some respiratory distress and states she could not catch her breath. She continues to have congested nonproductive cough. Workup in the emergency department including repeat chest showing mostly chronic findings. Left hemidiaphragm elevation, right lung linear atelectasis. Labs include a CBC with a WBC count of 21.5 which is trending down, hemoglobin 11.3 g/dL, platelets 282. CMP: Sodium 129, potassium 4.5, chloride 92, serum bicarb 31, BUN 38, creatinine 0.61, glucose 592. Magnesium 1.9. Lactic was 3.3 and is down to 2. NT proBNP 2780. Patient currently being evaluated emergency department. She is sitting up in bed, on 3 L/min nasal cannula which she wears at home. Does not appear to be any respiratory distress. Continues to have congested cough. No significant sputum production, hemoptysis, chest pain, fevers or chills. No lower extremity edema, chest pain, heart palpitations, or syncope. Did receive a one-time dose of Levaquin in the ED. Normal saline infusing at 75 mL/h. Also, her prednisone taper was resumed. Most recent [id number] glucose down to 239. Current vital signs: Temperature 97.6 F, heart rate 71 bpm, blood pressure 107/51 mmHg, nontachypneic, SpO2 recorded at 98% on 3 L/min nasal cannula. The patient was seen today December 29, 2024 in follow-up on the regular medical floor. She is currently sitting up in a chair at the bedside. Awake and alert in no acute distress. Maintaining good O2 saturations in the 90s on 3 L/min per nasal cannula. She is having some complaints of nausea today. She has a loose congested cough. Some bilateral wheezing. CT scan of the chest revealed bibasilar infiltrates right greater than left. Small right pleural effusion. Mild to moderate cardiomegaly. Sodium 134. Potassium 3.9. Bicarb 37. BUN 20. Creatinine 0.47. Glucose 72. She remains on Symbicort and Singulair. Continued on prednisone taper. Recent sputum culture reveals a resistant Pseudomonas aeruginosa. She has been initiated on Zerbaxa per ID service. The patient is seen today December 30, 2024 in follow-up on the regular medical floor. She is currently sitting up in a chair at the bedside. Awake and alert in no acute distress. Maintaining O2 saturations in the 90s on 3 L/min per nasal cannula. Afebrile. Hemodynamically stable. Sputum culture revealed no growth. White count 13.8. Hemoglobin 14.4. Platelets 248. Sodium 142. Potassium 4.4. Bicarb 38. BUN 19. Creatinine 0.4. Glucose 177. She remains on DuoNeb inhalations, Symbicort, prednisone taper. Antibiotics in the form of Zerbaxa. She remains on oral diuretics. The patient is seen today December 31, 2024 in follow-up on the regular medical sanjuana or. She is currently awake and alert in no acute distress. Sitting up in a chair at the bedside. Maintaining O2 saturations in the 90s on 6 L high flow nasal cannula. She is afebrile. Hemodynamically stable. CT angiogram ruled out pulmonary embolism. There is no significant change in the lung opacities compared to December 28, 2024. Streaky opacities in the lung bases right greater than left thought to be combination of atelectasis versus airspace disease. Mild cardiomegaly with trace bilateral pleural effusions and pulmonary vascular congestion. Sputum culture revealed no growth. Sodium 139. Potassium 5.0. Bicarb 34. BUN 16. Creatinine 0.5. Glucose 73. She remains on Zerbaxa per ID service. Continued on DuoNeb inhalations, Symbicort, prednisone. Remains on oral diuretics. Home medications resumed. The patient is seen today January 01, 2025 in follow-up on the regular medical floor. She is currently sitting up in a chair at the bedside. Awake and alert in no acute distress. Maintaining O2 saturations in the 90s on 4 L/min per nasal cannula. She remains on Zerbaxa. Continued on DuoNeb inhalations, Symbicort, Singulair. Heparin for DVT prophylaxis. Remains on oral diuretics. Sputum culture revealed no growth. White count 16.5. Hemoglobin 10.6. Platelets 232. Sodium 139. Potassium 4.5. Bicarb 38. BUN 18. Creatinine 0.4. Glucose 89. Procalcitonin negative at 0.35. The patient is seen today January 02, 2025 in follow-up on the regular medical floor. She is awake and alert in no acute distress. Sitting up in a chair at the bedside. Maintaining good O2 saturations in the 90s on 4 L/min per nasal cannula. Denies any worsening shortness of breath, cough or congestion. She is continued on DuoNeb inhalations, Symbicort, Singulair. Heparin for DVT prophylaxis. Continued on oral diuretics. Currently on Zerbaxa. Sputum culture from December 25, 2024 was positive for Pseudomonas aeruginosa. Sputum culture on 12/28/2024 showed no growth. White count 12.8. Hemoglobin 10.4. Platelets 242. Sodium 138. Potassium 4.8. Bicarb 42. BUN 17. Creatinine 0.4. Glucose 122. The patient is seen today January 03, 2025 in follow-up on the regular medical floor. She is currently sitting up in a chair. Awake and alert in no acute distress. Maintaining good O2 saturations in the 90s on 4 L/min per nasal cannula. She has been afebrile. Hemodynamically stable. Sputum culture revealed no growth. White count 12.2. Hemoglobin 10.8. Platelets 237. Sodium 140. Potassium 4.7. Bicarb 42. BUN 22. Creatinine 0.6. Glucose 74. She remains on DuoNeb inhalations, Symbicort, Mucinex. Continued on oral diuretics. Continued on Zerbaxa for previous sputum culture positive for Pseudomonas aeruginosa on December 25, 2024. The patient is seen today January 04, 2025 in follow-up on the regular medical floor. She is awake and alert in no acute distress. Resting comfortably in bed. Denies any worsening shortness of breath, cough or congestion. Maintain ing good O2 saturations in the 90s on 5 L/min per nasal cannula. She is afebrile. Hemodynamically stable. Sputum culture revealed no growth. Glucose 102. She remains on DuoNeb inhalations, Symbicort, Singulair. Continued on antibiotics in the form of Zerbaxa. Objective - Vital Signs Vital signs: Vital Signs Temp 98.6 F 01/04/25 12:45 Pulse 82 01/04/25 12:45 Resp 17 01/04/25 12:45 BP 101/55 01/04/25 12:45 Pulse Ox 95 01/04/25 13:11 FiO2 Intake & Output 01/03/25 01/04/25 01/04/25 18:59 06:59 18:59 Weight 84.822 kg Other: Voiding Method Bedside Commode Bedside Commode Bedside Commode Diaper Diaper Diaper # Voids 1 2 - Exam GENERAL EXAM: Alert, pleasant 69-year-old female, resting in bed, on 5 L nasal cannula, in no acute distress. HEAD: Normocephalic. EYES: Normal reaction of pupils, equal size. NOSE: Clear with pink turbinates. THROAT: No erythema or exudates. NECK: No masses, no JVD. CHEST: No chest wall deformity. LUNGS: Equal air entry with coarse rhonchi and wheeze bilaterally. CVS: S1 and S2 normal with no audible murmur, regular rhythm. ABDOMEN: No hepatosplenomegaly, normal bowel sounds, no guarding or rigidity. SPINE: No scoliosis or deformity SKIN: No rashes CENTRAL NERVOUS SYSTEM: No focal deficits, tone is normal in all 4 extremities. EXTREMITIES: There is no peripheral edema. No clubbing, no cyanosis. Peripheral pulses are intact. - Labs CBC & Chem 7: 01/03/25 03:19 01/03/25 03:19 Labs: Abnormal Lab Results - Last 24 Hours (Table) 01/03/25 01/03/25 Range/Units 16:40 21:00 POC Glucose (mg/dL) 199 H 170 H (70-110) mg/dL Assessment and Plan Assessment: Acute hypoxic respiratory failure secondary to an acute exacerbation of chronic obstructive pulmonary disease and resistant Pseudomonas aeruginosa. CT angiogram ruled out pulmonary embolism. There is no significant change in the lung opacities compared to December 28, 2024. Streaky opacities in the lung bases right greater than left thought to be combination of atelectasis versus airspace disease. Mild cardiomegaly with trace bilateral pleural effusions and pulmonary vascular congestion Sputum culture from 12/25/2024 positive for Pseudomonas aeruginosa, quite resistant, currently on Zerbaxa. Sputum culture this admission reveals no growth. Procalcitonin negative Left hemidiaphragm elevation possible paralysis Chronic obstructive pulmonary disease, with an FEV1 64% predicted, Gold stage II Chronic hypoxemic respiratory failure, secondary to combination of above Severe hyperglycemia Pseudohyponatremia, secondary to above Leukocytosis, possibly secondary to steroid use Sputum positive for MRSA 11/27/2024 Chronic ongoing tobacco dependence Hypothyroidism Hypertension History of mediastinal lymphadenopathy History of gastric bypass surgery Bipolar disorder Fibromyalgia and chronic pain syndrome Plan: The patient was seen and evaluated Labs and medications reviewed Continue DuoNeb inhalations, Symbicort, Singulair Continue Mucinex Titrate the FiO2 as tolerated Increase her activity as tolerated Home once Zerbaxa completed We will continue to follow I have personally seen and examined the patient, performed the documentation and the assessment and plan as written. Number of minutes spent on the visit: 10 Dictation was produced using [email or web address] dictation software. Please excuse any grammatical, word or spelling errors.
[2025-01-04 16:13] LABS: Glucose,Whole Blood 92 mg/dL (70-110)
[2025-01-04] MEDS: NICOTINE 14MG/24HR PATCH TRANSDERM SCH (16:31)
[2025-01-04 20:19] LABS: Glucose,Whole Blood 174 mg/dL (70-110)
--- NOTE | 2025-01-04 22:28 | P.PN ---
Subjective Progress Note Date: 01/03/25 Principal diagnosis: Reason for follow-up is pneumonia MDRO Pseudomonas Patient is a 69-year-old female with a past medical history significant for Asthma, Heart Failure, COPD, Fibromyalgia, recurrent pneumonia presented to the hospital with increasing shortness of breath and cough has been diagnosed with pneumonia with recent sputum positive for drug-resistant Pseud omonas On today's evaluation it is 01/03/2025,the patient denies any fever or any chills, patient is breathing slightly comfortably on 4 L nasal oxygen, the patient denies chest pain shortness of breath and no significant cough, patient has been complaining of epigastric discomfort and nausea but no vomiting. Patient did have a white count of 12.22 creatinine 0.6 Objective - Vital Signs Vital signs: Vital Signs Temp 98.8 F 01/03/25 14:57 Pulse 83 01/03/25 14:57 Resp 18 01/03/25 14:57 BP 105/64 01/03/25 14:57 Pulse Ox 90 L 01/03/25 14:57 FiO2 Intake & Output 01/02/25 01/03/25 01/03/25 18:59 06:59 18:59 Intake Total 600 Balance 600 Weight 84.822 kg Intake: Oral 600 Other: Voiding Method Bedside Commode Bedside Commode Diaper Diaper # Voids 5 2 1 # Bowel Movements 1 - Exam GENERAL DESCRIPTION: An elderly female lying in bed in no distress RESPIRATORY SYSTEM: Unlabored breathing , decreased breath sounds at bases HEART: S1 S2 regular rate and rhythm , ABDOMEN: Soft , no tenderness EXTREMITIES: No edema feet - Labs CBC & Chem 7: 01/03/25 03:19 01/03/25 03:19 Labs: Abnormal Lab Results - Last 24 Hours (Table) 01/02/25 01/02/25 01/03/25 Range/Units 16:55 20:55 03:19 WBC 12.22 H (4.50-10.00) X 10*3/uL RBC 3.58 L (4.10-5.20) X 10*6/uL Hgb 10.8 L (12.0-15.0) g/dL Hct 36.2 L (37.2-46.3) % MCV 101.1 H (80.0-97.0) FL MCHC 29.8 L (32.0-37.0) g/dL Immature Gran # 0.48 H (0.00-0.04) X 10*3/uL Chloride (96-109) mmol/L Carbon Dioxide (21.6-31.8) mmol/L BUN/Creatinine Ratio (12.00-20.00) Ratio POC Glucose (mg/dL) 163 H 156 H (70-110) mg/dL 01/03/25 Range/Units 03:19 WBC (4.50-10.00) X 10*3/uL RBC (4.10-5.20) X 10*6/uL Hgb (12.0-15.0) g/dL Hct (37.2-46.3) % MCV (80.0-97.0) FL MCHC (32.0-37.0) g/dL Immature Gran # (0.00-0.04) X 10*3/uL Chloride 92 L (96-109) mmol/L Carbon Dioxide 41.7 A* (21.6-31.8) mmol/L BUN/Creatinine Ratio 36.33 H (12.00-20.00) Ratio POC Glucose (mg/dL) (70-110) mg/dL Assessment and Plan (1) Sepsis Current Visit: Yes Status: Acute Code(s): A41.9 - SEPSIS, UNSPECIFIED ORGANISM SNOMED Code(s): 36803905 (2) Pseudomonas aeruginosa infection Current Visit: Yes Status: Acute Code(s): A49.8 - OTHER BACTERIAL INFECTIONS OF UNSPECIFIED SITE SNOMED Code(s): 02572395 (3) Pneumonia Current Visit: Yes Status: Acute Code(s): J18.9 - PNEUMONIA, UNSPECIFIED ORGANISM SNOMED Code(s): 116353877 (4) Allergy to multiple antibiotics Current Visit: No Status: Acute Code(s): Z88.1 - ALLERGY STATUS TO OTHER ANTIBIOTIC AGENTS SNOMED Code(s): 612245376 Plan: 1patient presented the hospital with sepsis in this patient who did have fever elevated lactic acid meeting criteria for SIRS/sepsis source is right lower lobe pneumonia with recent sputum culture positive for a drug-resistant Pseudomonas aeruginosa 2-patient with multiple antibiotic ALLERGIES that would limit the number of antibiotic safe to use 3patient white count is trending down patient is currently being treated with Zerbaxa to finish 7-day course of therapy Dictation was produced using [employer]ation software. please excuse any grammatical, word or spelling errors. Time with Patient: Less than 30
--- NOTE | 2025-01-04 22:30 | P.PN ---
Subjective Progress Note Date: 01/04/25 Principal diagnosis: Reason for follow-up is pneumonia MDRO Pseudomonas Patient is a 69-year-old female with a past medical history significant for Asthma, Heart Failure, COPD, Fibromyalgia, recurrent pneumonia presented to the hospital with increasing shortness of breath and cough has been diagnosed with pneumonia with recent sputum positive for drug-resistant Pseud omonas On today's evaluation that is 01/04/2025,the patient remains to be afebrile, patient is on 4 L nasal cannula supplemental oxygen and patient breathing slightly comfortably denies any chest pain or worsening cough still complaining of epigastric discomfort and nausea with vomiting no diarrhea. No new lab has been obtained today Objective - Vital Signs Vital signs: Vital Signs Temp 98.6 F 01/04/25 12:45 Pulse 82 01/04/25 12:45 Resp 17 01/04/25 12:45 BP 101/55 01/04/25 12:45 Pulse Ox 95 01/04/25 13:11 FiO2 Intake & Output 01/03/25 01/04/25 01/04/25 18:59 06:59 18:59 Weight 84.822 kg Other: Voiding Method Bedside Commode Bedside Commode Bedside Commode Diaper Diaper Diaper # Voids 1 2 - Exam GENERAL DESCRIPTION: An elderly female lying in bed in no distress RESPIRATORY SYSTEM: Unlabored breathing , decreased breath sounds at bases HEART: S1 S2 regular rate and rhythm , ABDOMEN: Soft , no tenderness EXTREMITIES: No edema feet - Labs CBC & Chem 7: 01/03/25 03:19 01/03/25 03:19 Labs: Abnormal Lab Results - Last 24 Hours (Table) 01/03/25 01/03/25 Range/Units 16:40 21:00 POC Glucose (mg/dL) 199 H 170 H (70-110) mg/dL Assessment and Plan (1) Sepsis Current Visit: Yes Status: Acute Code(s): A41.9 - SEPSIS, UNSPECIFIED ORG ANISM SNOMED Code(s): 73366900 (2) Pseudomonas aeruginosa infection Current Visit: Yes Status: Acute Code(s): A49.8 - OTHER BACTERIAL INFECTIONS OF UNSPECIFIED SITE SNOMED Code(s): 96799181 (3) Pneumonia Current Visit: Yes Status: Acute Code(s): J18.9 - PNEUMONIA, UNSPECIFIED ORGANISM SNOMED Code(s): 661719286 (4) Allergy to multiple antibiotics Current Visit: No Status: Acute Code(s): Z88.1 - ALLERGY STATUS TO OTHER ANTIBIOTIC AGENTS SNOMED Code(s): 647136777 Plan: 1patient presented the hospital with sepsis in this patient who did have fever elevated lactic acid meeting criteria for SIRS/sepsis source is right lower lobe pneumonia with recent sputum culture positive for a drug-resistant Pseudomonas aeruginosa 2-patient with multiple antibiotic ALLERGIES that would limit the number of antibiotic safe to use 3patient white count is trending down as of yesterday no CBC was done today 4patient is currently being treated with Zerbaxa with a multidrug-resistant Pseudomonas in the sputum culture however the patient seem to have received adequate antibiotics and may not need any antibiotic on discharge Dictation was produced using [employer] dictation software. please excuse any grammatical, word or spelling errors.
[2025-01-04 23:34] LABS: Glucose,Whole Blood 125 mg/dL (70-110)
--- NOTE | 2025-01-05 06:04 | P.PN ---
Subjective Progress Note Date: 01/04/25 Patient is evaluated on the medical floor. She came back into the hospital because of a fall with right knee pain. Imaging reveals no acute fracture or dislocation as well as no joint effusion. She was evaluated by orthopedics because of this and the pain to her knee has essentially resolved. They are recommending a lidocaine patch as needed and follow-up with orthopedics on discharge. Patient continues on IV Zerbaxa for the positive sputum culture with pseudomonas and ID is following closely. She reports continued sputum production thick in nature. Was also having episodes of emesis although reports that she has not had a good sized bowel movement in the last 5 days. She does not want any rectal medications or any liquid laxatives. She states that she like to only try a pill for her constipation at this time. This may not be that effective however we will follow-up with the patient if she is still unable to have a bowel movement. Labs today reviewed sodium level of 134 potassium 3.9, BUN of 20 creatinine of 0.47. Blood glucose of 101. She is taken off of the long-acting insulin and will continue only on sliding scale as needed as she is having episodes of hypoglycemia. She continues on oral prednisone. Her white blood cell count is currently pending from today. She will require rehab on discharge. 12/30/2024 Patient evaluated today resting in the chair. Has a pain in her left upper abdomen. Feels anxious. States her brother is hospitalized at [facility] and not doing well. Initial sputum reveals pseudomonas aueroginosa, surinder albicans, and corynebacterium striatum group however sputum was repeated on 12/28 and reports as normal farooq. WBC 13.81, hgb 11.4. Sodium 142, potassium 4.4. BUN 18.8, creatinine 0.4. Glucose was low this AM. 12/31/2024 Patient evaluated in follow-up on the medical floor. She does report feeling better than yesterday and states that the pain in her upper abdomen is gone and she is less anxious. Her repeat sputum was negative so far she continues on IV zerbaxa with ID following closely. She has not had a bowel movement. Blood glucose is better without episodes of hypoglycemia and she remains off the Lantus. She continues on sliding scale insulin only. Patient evaluated today in follow up on the medical floor. Still has not had BM. Continues on oxygen via nasal cannula at 4L. Continues on IV zerbaxa for 10 days total of antibiotic therapy currently on day #3. Authorization has been obtained for rehab however awaiting if they can accommodate the patient on zerbaxa. WBC 16.53. Procalcitonin 0.35. 01/02/2025 . Patient evaluated in follow-up in the medical floor. She will receive IV Lasix x 1 today. She continues on oxygen via nasal cannula with saturations of 91% on 4 L. She states that she feels like a fish out of water. Patient is currently on a 10-day course of IV Zerbaxa for the Pseudomonas in the sputum. She will not be able to discharge to rehab until this has been completed. White blood cell count today is better at 12.83, hemoglobin 10.4, sodium of 138 potassium 4.8, CO2 level of 41.7 BUN of 17 creatinine 0.4. Procalcitonin level was 0.35. 01/03/2025 Patient is seen in follow-up today with no acute overnight issues noted. Patient continues to be weak and working with physical therapy will be going to [facility]. Patient is maintained on Zerbaxa per ID recommendations for at least 7 days and this was started on 12/29/2024. Patient will continue until early next week. Unfortunately patient cannot go to ECF with this medication as it is too expensive although patient has multiple allergies to medications and resistance to other medications. Patient being followed by pulmonary and will continue current regimen with breathing treatments and continued supportive care. En couraged increase activity as tolerated with sitting up in the chair more frequently. Patient denies any chest pain or palpitations and denies nausea or vomiting has been tolerating diet. 01/04/2025 Patient is continued on Zerbaxa and will continue until 01/08/2025 per ID recommendations as patient had resistant sputum cultures initially with MRSA with significant COPD. Patient is awaiting to go to [facility] and has been accepted by [facility] although needs to complete antibiotic regimen prior to due to the cost of the medication. Recommend PT/OT therapy daily as patient continues with weakness. Patient is impulsive and extremely high risk for falls and has had multiple falls at home that have been progressively getting worse over the last few weeks. Review of Systems Constitutional: Denied any fatigue denied any fever. Cardio vascular: denied any chest pain, palpitations Gastrointestinal: denied any nausea, vomiting, diarrhea Reports constipation Pulmonary: Reports shortness of breath, reports cough and sputum production Neurologic denied any new focal deficits, continues to be weak All inpatient medications were reviewed and appropriate changes in these medications as dictated in the interval history and assessment and plan. PHYSICAL EXAMINATION: GENERAL: The patient is alert and oriented x3, not in any acute distress. Well developed, elderly appearing, obese HEENT: Pupils are round and equally reacting to light. EOMI. No scleral icterus. No conjunctival pallor. Normocephalic, atraumatic. No pharyngeal erythema. No thyromegaly. CARDIOVASCULAR: S1 and S2 muffled PULMONARY: Coarse ronchi throughout ABDOMEN: Soft, nontender, nondistended, normoactive bowel sounds. No palpable organomegaly. MUSCULOSKELETAL: No joint swelling or deformity. Right knee pain. EXTREMITIES: No cyanosis, clubbing, or pedal edema. NEUROLOGICAL: Gross neurological examination did not reveal any focal deficits. Generalized weakness SKIN: No rashes. Assessment: -Fall with right knee pain -Weakness and medical debility requiring ERIBERTO on discharge -Acute on chronic hypoxic/Hypercapnic respiratory failure and chronically wears 3 L outpatient -Pneumonia with sepsis, present on admission -Leukocytosis secondary to above -Sputum culture positive for drug-resistant Pseudomonas; positive for MRSA back in November 2024 -Hyponatremia, hypovolemic improving -Hyperglycemia treated with long-acting insulin and now hypoglycemic -Lactic acidosis -Acute exacerbation COPD -Constipation -Hypertension -Anxiety/depression/bipolar disorder -Hypothyroidism -Thyroid nodule 2.[address] CT f/u ultrasound recommended -Obesity with a BMI of 36.8 -Continued ongoing nicotine dependence -History of mediastinal lymphadenopathy -Fibromyalgia and chronic pain syndrome -Diabetes Mellitus type 2 hemoglobin A1C 7.7. -Bipolar -THC use -GI prophylaxis -DVT prophylaxis Plan: Continue IV zerbaxa with ID following requires a 10-day course of this for the sputum culture showing Pseudomonas her repeat sputum culture is negative so far. Continue Duonebs scheduled and PRN continue monitoring accuchecks ACHS and sliding scale insulin and will adjust accordingly Patient has no documented history of diabetes however has had multiple and frequent hospitalizations for COPD/Pneumonia and has been maintained on steroids frequently over the last few months this is likely contributing to her elevated hemoglobin A1C of 7.7. Will adjust medications as needed and continue with close monitoring of her blood glucose Orthopedics following pRN and recommending lidocaine patch for the right knee and PT eval, outpatient follow up Pulmonology following recommending continuing current regimen and outpatient follow-up Continue bowel regimen scheduled as well as as needed Case management/social work following for DC planning and patient will complete a course of Zerbaxa prior to discharge to [facility] The impression and plan of care has been dictated by Audrey Curtis, Nurse Practitioner as directed. Dr. Indigo MD I have performed a history and examination and MDM of this patient, discussed the same with the dictator, and agree with the dictator's assessment and plan as written ,documented as a scribe. Based on total visit time, I have performed more than 50% of the visit. Objective - Vital Signs Vital signs: Vital Signs Temp 98.2 F 01/04/25 06:57 Pulse 88 01/04/25 06:57 Resp 18 01/04/25 06:57 BP 155/80 01/04/25 06:57 Pulse Ox 91 L 01/04/25 06:57 FiO2 Intake & Output 01/03/25 01/04/25 01/04/25 18:59 06:59 18:59 Weight 84.822 kg Other: Voiding Method Bedside Commode Bedside Commode Diaper Diaper # Voids 1 2 - Labs CBC & Chem 7: 01/03/25 03:19 01/03/25 03:19 Labs: Abnormal Lab Results - Last 24 Hours (Table) 01/03/25 01/03/25 01/03/25 Range/Units 03:19 16:40 21:00 WBC 12.22 H (4.50-10.00) X 10*3/uL RBC 3.58 L (4.10-5.20) X 10*6/uL Hgb 10.8 L (12.0-15.0) g/dL Hct 36.2 L (37.2-46.3) % MCV 101.1 H (80.0-97.0) FL MCHC 29.8 L (32.0-37.0) g/dL Immature Gran # 0.48 H (0.00-0.04) X 10*3/uL POC Glucose (mg/dL) 199 H 170 H (70-110) mg/dL
[2025-01-05 06:09] LABS: Glucose,Whole Blood 90 mg/dL (70-110)
[2025-01-05 06:41] LABS: Glucose,Whole Blood 97 mg/dL (70-110)
[2025-01-05 08:44] LABS: Magnesium 1.6 mg/dL (1.5-2.4)
[2025-01-05 08:56] LABS: Basophils # (A) 0.11 X 10*3/uL (0.00-0.10); Basophils % (A) 0.5 %; Eosinophils # (A) 0.09 X 10*3/uL (0.04-0.35); Eosinophils % (A) 0.4 %; HCT 36.2 % (37.2-46.3); HGB 10.7 g/dL (12.0-15.0); Lymphocytes # (A) 2.04 X 10*3/uL (0.90-5.00); Lymphocytes % (A) 9.2 %; MCHC 29.6 g/dL (32.0-37.0); MCV 101.4 FL (80.0-97.0); Mean Platelet Volume 10.2 FL (9.5-12.2); Monocytes # (A) 1.16 X 10*3/uL (0.20-1.00); Monocytes % (A) 5.2 %; NRBC Per 100 WBC 0 X 10*3/uL (0.00-0.01); Neutrophils # (A) 18.59 X 10*3/uL (1.80-7.70); Neutrophils % (A) 83.6 %; Platelet Count 226 X 10*3/uL (140-440); RBC 3.57 X 10*6/uL (4.10-5.20); RDW 14.4 % (11.5-14.5); WBC 22.23 X 10*3/uL (4.50-10.00)
[2025-01-05 09:31] LABS: Blood Urea Nitrogen 16.7 mg/dL (9.0-27.0); Calcium 9.7 mg/dL (8.7-10.3); Carbon Dioxide 42.1 mmol/L (21.6-31.8); Chloride 90 mmol/L (96-109); Glucose 64 mg/dL (70-110); Potassium 4.5 mmol/L (3.5-5.5); Sodium 141 mmol/L (135-145)
[2025-01-05 12:13] LABS: Glucose,Whole Blood 192 mg/dL (70-110)
--- NOTE | 2025-01-05 14:11 | P.PN ---
Subjective Progress Note Date: 01/05/25 Pulmonary consultation was requested. Readmission less than 24 hours for acute COPD exacerbation. Recently discharged from the hospital less than 24 hours ago on a steroid taper with Levaquin to be completed at home. Her sputum was previously positive for Pseudomonas aeruginosa. When she got home, she developed some respiratory distress and states she could not catch her breath. She continues to have congested nonproductive cough. Workup in the emergency department including repeat chest showing mostly chronic findings. Left hemidiaphragm elevation, right lung linear atelectasis. Labs include a CBC with a WBC count of 21.5 which is trending down, hemoglobin 11.3 g/dL, platelets 282. CMP: Sodium 129, potassium 4.5, chloride 92, serum bicarb 31, BUN 38, creatinine 0.61, glucose 592. Magnesium 1.9. Lactic was 3.3 and is down to 2. NT proBNP 2780. Patient currently being evaluated emergency department. She is sitting up in bed, on 3 L/min nasal cannula which she wears at home. Does not appear to be any respiratory distress. Continues to have congested cough. No significant sputum production, hemoptysis, chest pain, fevers or chills. No lower extremity edema, chest pain, heart palpitations, or syncope. Did receive a one-time dose of Levaquin in the ED. Normal saline infusing at 75 mL/h. Also, her prednisone taper was resumed. Most recent [id number] glucose down to 239. Current vital signs: Temperature 97.6 F, heart rate 71 bpm, blood pressure 107/51 mmHg, nontachypneic, SpO2 recorded at 98% on 3 L/min nasal cannula. The patient was seen today December 29, 2024 in follow-up on the regular medical floor. She is currently sitting up in a chair at the bedside. Awake and alert in no acute distress. Maintaining good O2 saturations in the 90s on 3 L/min per nasal cannula. She is having some complaints of nausea today. She has a loose congested cough. Some bilateral wheezing. CT scan of the chest revealed bibasilar infiltrates right greater than left. Small right pleural effusion. Mild to moderate cardiomegaly. Sodium 134. Potassium 3.9. Bicarb 37. BUN 20. Creatinine 0.47. Glucose 72. She remains on Symbicort and Singulair. Continued on prednisone taper. Recent sputum culture reveals a resistant Pseudomonas aeruginosa. She has been initiated on Zerbaxa per ID service. The patient is seen today December 30, 2024 in follow-up on the regular medical floor. She is currently sitting up in a chair at the bedside. Awake and alert in no acute distress. Maintaining O2 saturations in the 90s on 3 L/min per nasal cannula. Afebrile. Hemodynamically stable. Sputum culture revealed no growth. White count 13.8. Hemoglobin 14.4. Platelets 248. Sodium 142. Potassium 4.4. Bicarb 38. BUN 19. Creatinine 0.4. Glucose 177. She remains on DuoNeb inhalations, Symbicort, prednisone taper. Antibiotics in the form of Zerbaxa. She remains on oral diuretics. The patient is seen today December 31, 2024 in follow-up on the regular medical sanjuana or. She is currently awake and alert in no acute distress. Sitting up in a chair at the bedside. Maintaining O2 saturations in the 90s on 6 L high flow nasal cannula. She is afebrile. Hemodynamically stable. CT angiogram ruled out pulmonary embolism. There is no significant change in the lung opacities compared to December 28, 2024. Streaky opacities in the lung bases right greater than left thought to be combination of atelectasis versus airspace disease. Mild cardiomegaly with trace bilateral pleural effusions and pulmonary vascular congestion. Sputum culture revealed no growth. Sodium 139. Potassium 5.0. Bicarb 34. BUN 16. Creatinine 0.5. Glucose 73. She remains on Zerbaxa per ID service. Continued on DuoNeb inhalations, Symbicort, prednisone. Remains on oral diuretics. Home medications resumed. The patient is seen today January 01, 2025 in follow-up on the regular medical floor. She is currently sitting up in a chair at the bedside. Awake and alert in no acute distress. Maintaining O2 saturations in the 90s on 4 L/min per nasal cannula. She remains on Zerbaxa. Continued on DuoNeb inhalations, Symbicort, Singulair. Heparin for DVT prophylaxis. Remains on oral diuretics. Sputum culture revealed no growth. White count 16.5. Hemoglobin 10.6. Platelets 232. Sodium 139. Potassium 4.5. Bicarb 38. BUN 18. Creatinine 0.4. Glucose 89. Procalcitonin negative at 0.35. The patient is seen today January 02, 2025 in follow-up on the regular medical floor. She is awake and alert in no acute distress. Sitting up in a chair at the bedside. Maintaining good O2 saturations in the 90s on 4 L/min per nasal cannula. Denies any worsening shortness of breath, cough or congestion. She is continued on DuoNeb inhalations, Symbicort, Singulair. Heparin for DVT prophylaxis. Continued on oral diuretics. Currently on Zerbaxa. Sputum culture from December 25, 2024 was positive for Pseudomonas aeruginosa. Sputum culture on 12/28/2024 showed no growth. White count 12.8. Hemoglobin 10.4. Platelets 242. Sodium 138. Potassium 4.8. Bicarb 42. BUN 17. Creatinine 0.4. Glucose 122. The patient is seen today January 03, 2025 in follow-up on the regular medical floor. She is currently sitting up in a chair. Awake and alert in no acute distress. Maintaining good O2 saturations in the 90s on 4 L/min per nasal cannula. She has been afebrile. Hemodynamically stable. Sputum culture revealed no growth. White count 12.2. Hemoglobin 10.8. Platelets 237. Sodium 140. Potassium 4.7. Bicarb 42. BUN 22. Creatinine 0.6. Glucose 74. She remains on DuoNeb inhalations, Symbicort, Mucinex. Continued on oral diuretics. Continued on Zerbaxa for previous sputum culture positive for Pseudomonas aeruginosa on December 25, 2024. The patient is seen today January 04, 2025 in follow-up on the regular medical floor. She is awake and alert in no acute distress. Resting comfortably in bed. Denies any worsening shortness of breath, cough or congestion. Maintain ing good O2 saturations in the 90s on 5 L/min per nasal cannula. She is afebrile. Hemodynamically stable. Sputum culture revealed no growth. Glucose 102. She remains on DuoNeb inhalations, Symbicort, Singulair. Continued on antibiotics in the form of Zerbaxa. The patient is seen today January 05, 2025 in follow-up on the regular medical floor. She is currently sitting up in bed. Awake and alert in no acute distress. Denies any worsening shortness of breath, cough or congestion. Continues to maintain O2 saturations in the 90s on 4 L/min per nasal cannula. She has been afebrile. Hemodynamically stable. Sputum culture revealed no growth. White count 22.2. Hemoglobin 10.7. Platelets 226. Sodium 141. Potassium 4.5. Bicarb 42. BUN 17. Creatinine 0.5. Glucose 90. Remains on D uoNeb and elations, Symbicort, Singulair. Heparin for DVT prophylaxis. Remains on oral diuretics. Continued on Zerbaxa per ID service. Objective - Vital Signs Vital signs: Vital Signs Temp 98.9 F 01/05/25 06:45 Pulse 86 01/05/25 12:14 Resp 18 01/05/25 06:45 BP 150/65 01/05/25 06:45 Pulse Ox 93 L 01/05/25 08:38 FiO2 Intake & Output 01/04/25 01/05/25 01/05/25 18:59 06:59 18:59 Intake Total 100 540 Output Total 800 Balance -700 540 Intake: Oral 100 540 Output: Urine 800 Other: Voiding Method Bedside Commode Bedside Commode Diaper Diaper Incontinent # Voids 10 4 - Exam GENERAL EXAM: Alert, 69-year-old female, appears older than stated age, sitting up in bed, on 4 L nasal cannula, in no acute distress. HEAD: Normocephalic. EYES: Normal reaction of pupils, equal size. NOSE: Clear with pink turbinates. THROAT: No erythema or exudates. NECK: No masses, no JVD. CHEST: No chest wall deformity. LUNGS: Equal air entry with coarse rhonchi and wheeze bilaterally. CVS: S1 and S2 normal with no audible murmur, regular rhythm. ABDOMEN: No hepatosplenomegaly, normal bowel sounds, no guarding or rigidity. SPINE: No scoliosis or deformity SKIN: No rashes CENTRAL NERVOUS SYSTEM: No focal deficits, tone is normal in all 4 extremities. EXTREMITIES: There is no peripheral edema. No clubbing, no cyanosis. Peripheral pulses are intact. - Labs CBC & Chem 7: 01/05/25 03:12 01/05/25 03:12 Labs: Abnormal Lab Results - Last 24 Hours (Table) 01/04/25 01/04/25 01/05/25 Range/Units 20:17 23:32 03:12 WBC 22.23 H (4.50-10.00) X 10*3/uL RBC 3.57 L (4.10-5.20) X 10*6/uL Hgb 10.7 L (12.0-15.0) g/dL Hct 36.2 L (37.2-46.3) % MCV 101.4 H (80.0-97.0) FL MCHC 29.6 L (32.0-37.0) g/dL Immature Gran # 0.24 H (0.00-0.04) X 10*3/uL Neutrophils # 18.59 H (1.80-7.70) X 10*3/uL Monocytes # 1.16 H (0.20-1.00) X 10*3/uL Basophils # 0.11 H (0.00-0.10) X 10*3/uL Chloride (96-109) mmol/L Carbon Dioxide (21.6-31.8) mmol/L Creatinine (0.6-1.5) mg/dL BUN/Creatinine Ratio (12.00-20.00) Ratio Glucose (70-110) mg/dL POC Glucose (mg/dL) 174 H 125 H (70-110) mg/dL 01/05/25 01/05/25 Range/Units 03:12 12:12 WBC (4.50-10.00) X 10*3/uL RBC (4.10-5.20) X 10*6/uL Hgb (12.0-15.0) g/dL Hct (37.2-46.3) % MCV (80.0-97.0) FL MCHC (32.0-37.0) g/dL Immature Gran # (0.00-0.04) X 10*3/uL Neutrophils # (1.80-7.70) X 10*3/uL Monocytes # (0.20-1.00) X 10*3/uL Basophils # (0.00-0.10) X 10*3/uL Chloride 90 L (96-109) mmol/L Carbon Dioxide 42.1 A* (21.6-31.8) mmol/L Creatinine 0.5 L (0.6-1.5) mg/dL BUN/Creatinine Ratio 33.40 H (12.00-20.00) Ratio Glucose 64 L (70-110) mg/dL POC Glucose (mg/dL) 192 H (70-110) mg/dL Assessment and Plan Assessment: Acute hypoxic respiratory failure secondary to an acute exacerbation of chronic obstructive pulmonary disease and resistant Pseudomonas aeruginosa. CT angiogram ruled out pulmonary embolism. There is no significant change in the lung opacities compared to December 28, 2024. Streaky opacities in the lung bases right greater than left thought to be combination of atelectasis versus airspace disease. Mild cardiomegaly with trace bilateral pleural effusions and pulmonary vascular congestion Sputum culture from 12/25/2024 positive for Pseudomonas aeruginosa, quite resistant, currently on Zerbaxa. Sputum culture this admission reveals no growth. Procalcitonin negative Left hemidiaphragm elevation possible paralysis Chronic obstructive pulmonary disease, with an FEV1 64% predicted, Gold stage II Chronic hypoxemic respiratory failure, secondary to combination of above Severe hyperglycemia Pseudohyponatremia, secondary to above Leukocytosis, possibly secondary to steroid use Sputum positive for MRSA 11/27/2024 Chronic ongoing tobacco dependence Hypothyroidism Hypertension History of mediastinal lymphadenopathy History of gastric bypass surgery Bipolar disorder Fibromyalgia and chronic pain syndrome Plan: The patient was seen and evaluated Labs and medications reviewed Stable and no complaints currently Continue DuoNeb inhalations, Symbicort, Singulair Continue Mucinex Remains on oxygen at 4 L/min per nasal cannula Titrate the FiO2 as tolerated Increase her activity as tolerated Here until Zerbaxa completed on January 08, 2025 I have personally seen and examined the patient, performed the documentation and the assessment and plan as written. Number of minutes spent on the visit: 10 Dictation was produced using [employer] dictation software. Please excuse any grammatical, word or spelling errors.
--- NOTE | 2025-01-05 15:39 | P.PN ---
Subjective Progress Note Date: 01/05/25 Principal diagnosis: Reason for follow-up is pneumonia MDRO Pseudomonas Patient is a 69-year-old female with a past medical history significant for Asthma, Heart Failure, COPD, Fibromyalgia, recurrent pneumonia presented to the hospital with increasing shortness of breath and cough has been diagnosed with pneumonia with recent sputum positive for drug-resistant Pseud omonas On today's evaluation that is 01/05/2025, the patient continues to be afebrile, the patient is on 4 L nasal oxygen and breathing comfortably, the Pt denies having any chest pain or worsening cough, the patient some epigastric discomfort nausea but no vomiting did have some diarrhea The patient white count is up to 22.23 creatinine 0.5 Objective - Vital Signs Vital signs: Vital Signs Temp 98.7 F 01/05/25 13:18 Pulse 76 01/05/25 13:18 Resp 18 01/05/25 13:18 BP 92/55 01/05/25 13:18 Pulse Ox 94 L 01/05/25 13:18 FiO2 Intake & Output 01/04/25 01/05/25 01/05/25 18:59 06:59 18:59 Intake Total 100 540 250 Output Total 800 Balance -700 540 250 Intake: Oral 100 540 250 Output: Urine 800 Other: Voiding Method Bedside Commode Bedside Commode Diaper Diaper Incontinent # Voids 10 4 - Exam GENERAL DESCRIPTION: An elderly female lying in bed in no distress RESPIRATORY SYSTEM: Unlabored breathing , decreased breath sounds at bases HEART: S1 S2 regular rate and rhythm , ABDOMEN: Soft , no tenderness EXTREMITIES: No edema feet - Labs CBC & Chem 7: 01/05/25 03:12 01/05/25 03:12 Labs: Abnormal Lab Results - Last 24 Hours (Table) 01/04/25 01/04/25 01/05/25 Range/Units 20:17 23:32 03:12 WBC 22.23 H (4.50-10.00) X 10*3/uL RBC 3.57 L (4.10-5.20) X 10*6/uL Hgb 10.7 L (12.0-15.0) g/dL Hct 36.2 L (37.2-46.3) % MCV 101.4 H (80.0-97.0) FL MCHC 29.6 L (32.0-37.0) g/dL Immature Gran # 0.24 H (0.00-0.04) X 10*3/uL Neutrophils # 18.59 H (1.80-7.70) X 10*3/uL Monocytes # 1.16 H (0.20-1.00) X 10*3/uL Basophils # 0.11 H (0.00-0.10) X 10*3/uL Chloride (96-109) mmol/L Carbon Dioxide (21.6-31.8) mmol/L Creatinine (0.6-1.5) mg/dL BUN/Creatinine Ratio (12.00-20.00) Ratio Glucose (70-110) mg/dL POC Glucose (mg/dL) 174 H 125 H (70-110) mg/dL 01/05/25 01/05/25 Range/Units 03:12 12:12 WBC (4.50-10.00) X 10*3/uL RBC (4.10-5.20) X 10*6/uL Hgb (12.0-15.0) g/dL Hct (37.2-46.3) % MCV (80.0-97.0) FL MCHC (32.0-37.0) g/dL Immature Gran # (0.00-0.04) X 10*3/uL Neutrophils # (1.80-7.70) X 10*3/uL Monocytes # (0.20-1.00) X 10*3/uL Basophils # (0.00-0.10) X 10*3/uL Chloride 90 L (96-109) mmol/L Carbon Dioxide 42.1 A* (21.6-31.8) mmol/L Creatinine 0.5 L (0.6-1.5) mg/dL BUN/Creatinine Ratio 33.40 H (12.00-20.00) Ratio Glucose 64 L (70-110) mg/dL POC Glucose (mg/dL) 192 H (70-110) mg/dL Assessment and Plan (1) Sepsis Current Visit: Yes Status: Acute Code(s): A41.9 - SEPSIS, UNSPECIFIED ORGANISM SNOMED Code(s): 27329367 (2) Pseudomonas aeruginosa infection Current Visit: Yes Status: Acute Code(s): A49.8 - OTHER BACTERIAL INFECTIONS OF UNSPECIFIED SITE SNOMED Code(s): 78457921 (3) Pneumonia Current Visit: Yes Status: Acute Code(s): J18.9 - PNEUMONIA, UNSPECIFIED ORGANISM SNOMED Code(s): 861355876 (4) Allergy to multiple antibiotics Current Visit: No Status: Acute Code(s): Z88.1 - ALLERGY STATUS TO OTHER ANTIBIOTIC AGENTS SNOMED Code(s): 474318762 Plan: 1patient presented the hospital with sepsis in this patient who did have fever elevated lactic acid meeting criteria for SIRS/sepsis source is right lower lobe pneumonia with recent sputum culture positive for a drug-resistant Pseudomonas aeruginosa 2-patient with multiple antibiotic ALLERGIES that would limit the number of antibiotic safe to use 3patient white count is trending down as of yesterday no CBC was done today 4patient is currently being treated with Zerbaxa with a multidrug-resistant Pseudomonas in the sputum culture for the patient received adequate Zerbaxa while inpatient 5significant worsening of the white count with diarrhea will check stool for C. difficile and treat if positive Dictation was produced using [employer] dictation software. please excuse any grammatical, word or spelling errors. Time with Patient: Less than 30
[2025-01-05 16:44] LABS: Glucose,Whole Blood 102 mg/dL (70-110)
[2025-01-05 20:10] LABS: Glucose,Whole Blood 122 mg/dL (70-110)
[2025-01-06 00:18] LABS: Glucose,Whole Blood 177 mg/dL (70-110)
[2025-01-06 06:27] LABS: Glucose,Whole Blood 121 mg/dL (70-110)
--- NOTE | 2025-01-06 09:15 | P.PN ---
Subjective Progress Note Date: 01/05/25 Patient is evaluated on the medical floor. She came back into the hospital because of a fall with right knee pain. Imaging reveals no acute fracture or dislocation as well as no joint effusion. She was evaluated by orthopedics because of this and the pain to her knee has essentially resolved. They are recommending a lidocaine patch as needed and follow-up with orthopedics on discharge. Patient continues on IV Zerbaxa for the positive sputum culture with pseudomonas and ID is following closely. She reports continued sputum production thick in nature. Was also having episodes of emesis although reports that she has not had a good sized bowel movement in the last 5 days. She does not want any rectal medications or any liquid laxatives. She states that she like to only try a pill for her constipation at this time. This may not be that effective however we will follow-up with the patient if she is still unable to have a bowel movement. Labs today reviewed sodium level of 134 potassium 3.9, BUN of 20 creatinine of 0.47. Blood glucose of 101. She is taken off of the long-acting insulin and will continue only on sliding scale as needed as she is having episodes of hypoglycemia. She continues on oral prednisone. Her white blood cell count is currently pending from today. She will require rehab on discharge. 12/30/2024 Patient evaluated today resting in the chair. Has a pain in her left upper abdomen. Feels anxious. States her brother is hospitalized at [facility] and not doing well. Initial sputum reveals pseudomonas aueroginosa, surinder albicans, and corynebacterium striatum group however sputum was repeated on 12/28 and reports as normal farooq. WBC 13.81, hgb 11.4. Sodium 142, potassium 4.4. BUN 18.8, creatinine 0.4. Glucose was low this AM. 12/31/2024 Patient evaluated in follow-up on the medical floor. She does report feeling better than yesterday and states that the pain in her upper abdomen is gone and she is less anxious. Her repeat sputum was negative so far she continues on IV zerbaxa with ID following closely. She has not had a bowel movement. Blood glucose is better without episodes of hypoglycemia and she remains off the Lantus. She continues on sliding scale insulin only. Patient evaluated today in follow up on the medical floor. Still has not had BM. Continues on oxygen via nasal cannula at 4L. Continues on IV zerbaxa for 10 days total of antibiotic therapy currently on day #3. Authorization has been obtained for rehab however awaiting if they can accommodate the patient on zerbaxa. WBC 16.53. Procalcitonin 0.35. 01/02/2025 . Patient evaluated in follow-up in the medical floor. She will receive IV Lasix x 1 today. She continues on oxygen via nasal cannula with saturations of 91% on 4 L. She states that she feels like a fish out of water. Patient is currently on a 10-day course of IV Zerbaxa for the Pseudomonas in the sputum. She will not be able to discharge to rehab until this has been completed. White blood cell count today is better at 12.83, hemoglobin 10.4, sodium of 138 potassium 4.8, CO2 level of 41.7 BUN of 17 creatinine 0.4. Procalcitonin level was 0.35. 01/03/2025 Patient is seen in follow-up today with no acute overnight issues noted. Patient continues to be weak and working with physical therapy will be going to ECF. Patient is maintained on Zerbaxa per ID recommendations for at least 7 days and this was started on 12/29/2024. Patient will continue until early next week. Unfortunately patient cannot go to ECF with this medication as it is too expensive although patient has multiple allergies to medications and resistance to other medications. Patient being followed by pulmonary and will continue current regimen with breathing treatments and continued supportive care. En couraged increase activity as tolerated with sitting up in the chair more frequently. Patient denies any chest pain or palpitations and denies nausea or vomiting has been tolerating diet. 01/04/2025 Patient is continued on Zerbaxa and will continue until 01/08/2025 per ID recommendations as patient had resistant sputum cultures initially with MRSA with significant COPD. Patient is awaiting to go to ECF and has been accepted by [facility] although needs to complete antibiotic regimen prior to due to the cost of the medication. Recommend PT/OT therapy daily as patient continues with weakness. Patient is impulsive and extremely high risk for falls and has had multiple falls at home that have been progressively getting worse over the last few weeks. 01/05/2025 Patient is Review of Systems Constitutional: Denied any fatigue denied any fever. Cardio vascular: denied any chest pain, palpitations Gastrointestinal: denied any nausea, vomiting, diarrhea Reports constipation Pulmonary: Reports shortness of breath, reports cough and sputum production Neurologic denied any new focal deficits, continues to be weak All inpatient medications were reviewed and appropriate changes in these med ications as dictated in the interval history and assessment and plan. PHYSICAL EXAMINATION: GENERAL: The patient is alert and oriented x3, not in any acute distress. Well developed, elderly appearing, obese HEENT: Pupils are round and equally reacting to light. EOMI. No scleral icterus. No conjunctival pallor. Normocephalic, atraumatic. No pharyngeal erythema. No thyromegaly. CARDIOVASCULAR: S1 and S2 muffled PULMONARY: Coarse ronchi throughout ABDOMEN: Soft, nontender, nondistended, normoactive bowel sounds. No palpable organomegaly. MUSCULOSKELETAL: No joint swelling or deformity. Right knee pain. EXTREMITIES: No cyanosis, clubbing, or pedal edema. NEUROLOGICAL: Gross neurological examination did not reveal any focal deficits. Generalized weakness SKIN: No rashes. Assessment: -Fall with right knee pain, no fractures noted, conservative care per orthopedics -Weakness and medical debility requiring ERIBERTO on discharge -Acute on chronic hypoxic/Hypercapnic respiratory failure and chronically wears 3 L outpatient -Pneumonia with sepsis, present on admission -Leukocytosis secondary to above -Sputum culture positive for drug-resistant Pseudomonas; positive for MRSA back in November 2024 -Hyponatremia, hypovolemic improving -Hyperglycemia treated with long-acting insulin and now hypoglycemic -Lactic acidosis -Acute exacerbation COPD -Constipation -Hypertension -Anxiety/depression/bipolar disorder -Hypothyroidism -Thyroid nodule 2.[address] CT f/u ultrasound recommended -Obesity with a BMI of 36.8 -Continued ongoing nicotine dependence -History of mediastinal lymphadenopathy -Fibromyalgia and chronic pain syndrome -Diabetes Mellitus type 2 hemoglobin A1C 7.7. -Bipolar -THC use -GI prophylaxis -DVT prophylaxis Plan: Continue IV zerbaxa with ID following requires a 10-day course of this for the sputum culture showing Pseudomonas her repeat sputum culture is negative so far. Continue Duonebs scheduled and PRN Patient recommending nicotine patch continue monitoring accuchecks ACHS and sliding scale insulin and will adjust accordingly Patient has no documented history of diabetes however has had multiple and frequent hospitalizations for COPD/Pneumonia and has been maintained on steroids frequently over the last few months this is likely contributing to her elevated hemoglobin A1C of 7.7. Will adjust medications as needed and continue with close monitoring of her blood glucose Orthopedics following as needed and recommending lidocaine patch for the right knee and PT eval, outpatient follow up Pulmonology following recommending continuing current regimen and outpatient follow-up Continue bowel regimen scheduled as well as as needed Case management/social work following for DC planning and patient will complete a course of Zerbaxa prior to discharge to [facility] The impression and plan of care has been dictated by Audrey Curtis, Nurse Practitioner as directed. Dr. Indigo MD I have performed a history and examination and MDM of this patient, discussed the same with the dictator, and agree with the dictator's assessment and plan as written ,documented as a scribe. Based on total visit time, I have performed more than 50% of the visit. Objective - Vital Signs Vital signs: Vital Signs Temp 97.0 F L 01/05/25 00:02 Pulse 67 01/05/25 00:02 Resp 20 01/05/25 00:02 BP 120/72 01/05/25 00:02 Pulse Ox 97 01/05/25 00:02 FiO2 Intake & Output 01/04/25 01/04/25 01/05/25 06:59 18:59 06:59 Intake Total 100 Output Total 800 Balance -700 Intake: Oral 100 Output: Urine 800 Other: Voiding Method Bedside Commode Bedside Commode Bedside Commode Diaper Diaper Diaper Incontinent # Voids 2 10 - Labs CBC & Chem 7: 01/05/25 03:12 01/05/25 03:12 Labs: Abnormal Lab Results - Last 24 Hours (Table) 01/04/25 01/04/25 Range/Units 20:17 23:32 POC Glucose (mg/dL) 174 H 125 H (70-110) mg/dL
[2025-01-06 10:07] LABS: Basophils # (A) 0.13 X 10*3/uL (0.00-0.10); Basophils % (A) 0.9 %; Eosinophils # (A) 0.11 X 10*3/uL (0.04-0.35); Eosinophils % (A) 0.7 %; HGB 11.3 g/dL (12.0-15.0); Lymphocytes # (A) 2.34 X 10*3/uL (0.90-5.00); Lymphocytes % (A) 15.9 %; MCH 29.7 pg (27.0-32.0); MCV 102.4 FL (80.0-97.0); Monocytes # (A) 1.04 X 10*3/uL (0.20-1.00); Monocytes % (A) 7.1 %; NRBC Per 100 WBC 0 X 10*3/uL (0.00-0.01); Neutrophils # (A) 10.78 X 10*3/uL (1.80-7.70); Neutrophils % (A) 73.5 %; Platelet Count 218 X 10*3/uL (140-440); RBC 3.81 X 10*6/uL (4.10-5.20); RDW 14.4 % (11.5-14.5); WBC 14.68 X 10*3/uL (4.50-10.00)
[2025-01-06 11:56] LABS: Glucose,Whole Blood 111 mg/dL (70-110)
--- NOTE | 2025-01-06 14:56 | P.PN ---
Subjective Progress Note Date: 01/06/25 Principal diagnosis: Reason for follow-up is pneumonia MDRO Pseudomonas Patient is a 69-year-old female with a past medical history significant for Asthma, Heart Failure, COPD, Fibromyalgia, recurrent pneumonia presented to the hospital with increasing shortness of breath and cough has been diagnosed with pneumonia with recent sputum positive for drug-resistant Pseud omonas On today's evaluation that is 01/07/2024, patient did have a temperature of 98.5 F this morning and denies having any chills, patient is on 4 L nasal oxygen and breathing slightly comfortably no chest pain or any worsening cough, the patient did not have any nausea vomiting abdominal pain or any diarrhea. Patient white count is 14.68 Objective - Vital Signs Vital signs: Vital Signs Temp 98.5 F 01/06/25 06:49 Pulse 72 01/06/25 11:31 Resp 17 01/06/25 06:49 BP 102/56 01/06/25 06:49 Pulse Ox 96 01/06/25 07:49 FiO2 Intake & Output 01/05/25 01/06/25 01/06/25 18:59 06:59 18:59 Intake Total 500 240 Balance 500 240 Intake: Oral 500 240 Other: # Voids 3 6 - Exam GENERAL DESCRIPTION: An elderly female lying in bed in no distress RESPIRATORY SYSTEM: Unlabored breathing , decreased breath sounds at bases HEART: S1 S2 regular rate and rhythm , ABDOMEN: Soft , no tenderness EXTREMITIES: No edema feet - Labs CBC & Chem 7: 01/06/25 06:04 01/05/25 03:12 Labs: Abnormal Lab Results - Last 24 Hours (Table) 01/05/25 01/06/25 01/06/25 Range/Units 20:08 00:16 06:04 WBC 14.68 H (4.50-10.00) X 10*3/uL RBC 3.81 L (4.10-5.20) X 10*6/uL Hgb 11.3 L (12.0-15.0) g/dL MCV 102.4 H (80.0-97.0) FL MCHC 29.0 L (32.0-37.0) g/dL MPV 9.0 L (9.5-12.2) FL Immature Gran # 0.28 H (0.00-0.04) X 10*3/uL Neutrophils # 10.78 H (1.80-7.70) X 10*3/uL Monocytes # 1.04 H (0.20-1.00) X 10*3/uL Basophils # 0.13 H (0.00-0.10) X 10*3/uL POC Glucose (mg/dL) 122 H 177 H (70-110) mg/dL 01/06/25 01/06/25 Range/Units 06:26 11:55 WBC (4.50-10.00) X 10*3/uL RBC (4.10-5.20) X 10*6/uL Hgb (12.0-15.0) g/dL MCV (80.0-97.0) FL MCHC (32.0-37.0) g/dL MPV (9.5-12.2) FL Immature Gran # (0.00-0.04) X 10*3/uL Neutrophils # (1.80-7.70) X 10*3/uL Monocytes # (0.20-1.00) X 10*3/uL Basophils # (0.00-0.10) X 10*3/uL POC Glucose (mg/dL) 121 H 111 H (70-110) mg/dL Assessment and Plan (1) Sepsis Current Visit: Yes Status: Acute Code(s): A41.9 - SEPSIS, UNSPECIFIED ORGANISM SNOMED Code(s): 08626044 (2) Pseudomonas aeruginosa infection Current Visit: Yes Status: Acute Code(s): A49.8 - OTHER BACTERIAL INFECTIONS OF UNSPECIFIED SITE SNOMED Code(s): 52996967 (3) Pneumonia Current Visit: Yes Status: Acute Code(s): J18.9 - PNEUMONIA, UNSPECIFIED ORGANISM SNOMED Code(s): 528449392 (4) Allergy to multiple antibiotics Current Visit: No Status: Acute Code(s): Z88.1 - ALLERGY STATUS TO OTHER ANTIBIOTIC AGENTS SNOMED Code(s): 501336346 Plan: 1patient presented the hospital with sepsis in this patient who did have fever elevated lactic acid meeting criteria for SIRS/sepsis source is right lower lobe pneumonia with recent sputum culture positive for a drug-resistant Pseudomonas aeruginosa 2-patient with multiple antibiotic ALLERGIES that would limit the number of antibiotic safe to use 3patient white count is trending down as of yesterday no CBC was done today 4patient is currently being treated with Zerbaxa with a multidrug-resistant Pseudomonas in the sputum culture patient is on day number 10 out of 10 for her antibiotics and Zerbaxa will be discontinued after midnight dose this was discussed with the pharmacist Dictation was produced using [employer] software. please excuse any grammatical, word or spelling errors. Time with Patient: Less than 30
[2025-01-06 16:39] LABS: Glucose,Whole Blood 138 mg/dL (70-110)
--- NOTE | 2025-01-06 19:11 | P.PN ---
Subjective Progress Note Date: 01/06/25 Patient is evaluated on the medical floor. She came back into the hospital because of a fall with right knee pain. Imaging reveals no acute fracture or dislocation as well as no joint effusion. She was evaluated by orthopedics because of this and the pain to her knee has essentially resolved. They are recommending a lidocaine patch as needed and follow-up with orthopedics on discharge. Patient continues on IV Zerbaxa for the positive sputum culture with pseudomonas and ID is following closely. She reports continued sputum production thick in nature. Was also having episodes of emesis although reports that she has not had a good sized bowel movement in the last 5 days. She does not want any rectal medications or any liquid laxatives. She states that she like to only try a pill for her constipation at this time. This may not be that effective however we will follow-up with the patient if she is still unable to have a bowel movement. Labs today reviewed sodium level of 134 potassium 3.9, BUN of 20 creatinine of 0.47. Blood glucose of 101. She is taken off of the long-acting insulin and will continue only on sliding scale as needed as she is having episodes of hypoglycemia. She continues on oral prednisone. Her white blood cell count is currently pending from today. She will require rehab on discharge. 12/30/2024 Patient evaluated today resting in the chair. Has a pain in her left upper abdomen. Feels anxious. States her brother is hospitalized at [facility] and not doing well. Initial sputum reveals pseudomonas aueroginosa, surinder albicans, and corynebacterium striatum group however sputum was repeated on 12/28 and reports as normal farooq. WBC 13.81, hgb 11.4. Sodium 142, potassium 4.4. BUN 18.8, creatinine 0.4. Glucose was low this AM. 12/31/2024 Patient evaluated in follow-up on the medical floor. She does report feeling better than yesterday and states that the pain in her upper abdomen is gone and she is less anxious. Her repeat sputum was negative so far she continues on IV zerbaxa with ID following closely. She has not had a bowel movement. Blood glucose is better without episodes of hypoglycemia and she remains off the Lantus. She continues on sliding scale insulin only. Patient evaluated today in follow up on the medical floor. Still has not had BM. Continues on oxygen via nasal cannula at 4L. Continues on IV zerbaxa for 10 days total of antibiotic therapy currently on day #3. Authorization has been obtained for rehab however awaiting if they can accommodate the patient on zerbaxa. WBC 16.53. Procalcitonin 0.35. 01/02/2025 . Patient evaluated in follow-up in the medical floor. She will receive IV Lasix x 1 today. She continues on oxygen via nasal cannula with saturations of 91% on 4 L. She states that she feels like a fish out of water. Patient is currently on a 10-day course of IV Zerbaxa for the Pseudomonas in the sputum. She will not be able to discharge to rehab until this has been completed. White blood cell count today is better at 12.83, hemoglobin 10.4, sodium of 138 potassium 4.8, CO2 level of 41.7 BUN of 17 creatinine 0.4. Procalcitonin level was 0.35. 01/03/2025 Patient is seen in follow-up today with no acute overnight issues noted. Patient continues to be weak and working with physical therapy will be going to ECF. Patient is maintained on Zerbaxa per ID recommendations for at least 7 days and this was started on 12/29/2024. Patient will continue until early next week. Unfortunately patient cannot go to ECF with this medication as it is too expensive although patient has multiple allergies to medications and resistance to other medications. Patient being followed by pulmonary and will continue current regimen with breathing treatments and continued supportive care. En couraged increase activity as tolerated with sitting up in the chair more frequently. Patient denies any chest pain or palpitations and denies nausea or vomiting has been tolerating diet. 01/04/2025 Patient is continued on Zerbaxa and will continue until 01/08/2025 per ID recommendations as patient had resistant sputum cultures initially with MRSA with significant COPD. Patient is awaiting to go to ECF and has been accepted by [facility] although needs to complete antibiotic regimen prior to due to the cost of the medication. Recommend PT/OT therapy daily as patient continues with weakness. Patient is impulsive and extremely high risk for falls and has had multiple falls at home that have been progressively getting worse over the last few weeks. 01/05/2025 Patient is seen in follow-up resting although arousable, continues antibiotics and will for 2 more days per ID recommendations. Plan is for [facility] on discharge although will need to complete antibiotic therapy. Will discuss with case management regarding discharge planning on Wednesday. 01/06/2025 Patient is seen and evaluated in follow-up today with pulmonary following along with infectious disease. Patient is receiving last dose of IV antibiotic in the form of Zerbaxa per infectious disease and will be discontinued. Patient will be monitored closely off antibiotic therapy with plans on going to ECF on Wednesday. Patient is afebrile with no reported chest pain or palpitations. Continue with breathing treatments and anxiety medications as needed. Encourage sitting up in the chair more frequently at least with every meal. Review of Systems Constitutional: Denied any fatigue denied any fever. Cardio vascular: denied any chest pain, palpitations Gastrointestinal: denied any nausea, vomiting, no diarrhea, reports constipation at times Pulmonary: Reports shortness of breath, reports intermittent cough Neurologic denied any new focal deficits, continues to be weak All inpatient medications were reviewed and appropriate changes in these medications as dictated in the interval history and assessment and plan. PHYSICAL EXAMINATION: GENERAL: The patient is alert and oriented x3, not in any acute distress. Well developed, elderly appearing, obese HEENT: Pupils are round and equally reacting to light. EOMI. No scleral icterus. No conjunctival pallor. Normocephalic, atraumatic. No pharyngeal erythema. No thyromegaly. CARDIOVASCULAR: S1 and S2 muffled PULMONARY: Coarse ronchi throughout ABDOMEN: Soft, nontender, nondistended, normoactive bowel sounds. No palpable organomegaly. MUSCULOSKELETAL: No joint swelling or deformity. Right knee pain. EXTREMITIES: No cyanosis, clubbing, or pedal edema. NEUROLOGICAL: Gross neurological examination did not reveal any focal deficits. Generalized weakness SKIN: No rashes. Assessment: -Fall with right knee pain, no fractures noted, conservative care per orthopedics -Weakness and medical debility requiring ERIBERTO on discharge -Acute on chronic hypoxic/Hypercapnic respiratory failure and chronically wears 3 L outpatient -Pneumonia with sepsis, present on admission -Leukocytosis secondary to above -Sputum culture positive for drug-resistant Pseudomonas; positive for MRSA back in November 2024 -Hyponatremia, hypovolemic improving -Hyperglycemia treated with long-acting insulin and now hypoglycemic -Lactic acidosis -Acute exacerbation COPD -Constipation -Hypertension -Anxiety/depression/bipolar disorder -Hypothyroidism -Thyroid nodule 2.[address] f/u ultrasound recommended -Obesity with a BMI of 36.8 -Continued ongoing nicotine dependence -History of mediastinal lymphadenopathy -Fibromyalgia and chronic pain syndrome -Diabetes Mellitus type 2 hemoglobin A1C 7.7. -Bipolar -THC use -GI prophylaxis -DVT prophylaxis Plan: Continue IV zerbaxa with ID following requires a 10-day course of this for the sputum culture showing Pseudomonas her repeat sputum culture is negative so far. Antibiotics will be complete this evening per infectious disease and will be monitored closely off antibiotic therapy with plans on going to [facility] on Wednesday for continued strength and mobility. Continue Duonebs scheduled and PRN continue monitoring accuchecks ACHS and sliding scale insulin and will adjust accordingly Patient has no documented history of diabetes however has had multiple and frequent hospitalizations for COPD/Pneumonia and has been maintained on steroids frequently over the last few months this is likely contributing to her elevated hemoglobin A1C of 7.7. Will adjust medications as needed and continue with close monitoring of her blood glucose Orthopedics following as needed and recommending lidocaine patch for the right knee and PT eval, outpatient follow up Pulmonology following recommending continuing current regimen and outpatient follow-up Continue bowel regimen scheduled as well as as needed Case management/social work following for DC planning and patient will be ready for discharge on Wednesday as patient's antibiotics in the form of Zerbaxa will have been completed The impression and plan of care has been dictated by Audrey Curtis, Nurse Practitioner as directed. Dr. Indigo MD I have performed a history and examination and MDM of this patient, discussed the same with the dictator, and agree with the dictator's assessment and plan as written ,documented as a scribe. Based on total visit time, I have performed more than 50% of the visit. Objective - Vital Signs Vital signs: Vital Signs Temp 98.5 F 01/06/25 06:49 Pulse 70 01/06/25 07:59 Resp 17 01/06/25 06:49 BP 102/56 01/06/25 06:49 Pulse Ox 96 01/06/25 07:49 FiO2 Intake & Output 01/05/25 01/06/25 01/06/25 18:59 06:59 18:59 Intake Total 500 240 Balance 500 240 Intake: Oral 500 240 Other: # Voids 3 6 - Labs CBC & Chem 7: 01/06/25 06:04 01/05/25 03:12 Labs: Abnormal Lab Results - Last 24 Hours (Table) 01/05/25 01/05/25 01/05/25 Range/Units 03:12 12:12 20:08 Chloride 90 L (96-109) mmol/L Carbon Dioxide 42.1 A* (21.6-31.8) mmol/L Creatinine 0.5 L (0.6-1.5) mg/dL BUN/Creatinine Ratio 33.40 H (12.00-20.00) Ratio Glucose 64 L (70-110) mg/dL POC Glucose (mg/dL) 192 H 122 H (70-110) mg/dL 01/06/25 01/06/25 Range/Units 00:16 06:26 Chloride (96-109) mmol/L Carbon Dioxide (21.6-31.8) mmol/L Creatinine (0.6-1.5) mg/dL BUN/Creatinine Ratio (12.00-20.00) Ratio Glucose (70-110) mg/dL POC Glucose (mg/dL) 177 H 121 H (70-110) mg/dL
[2025-01-06 21:03] LABS: Glucose,Whole Blood 205 mg/dL (70-110)
[2025-01-07 00:21] LABS: Glucose,Whole Blood 149 mg/dL (70-110)
[2025-01-07 05:47] LABS: Glucose,Whole Blood 96 mg/dL (70-110)
--- NOTE | 2025-01-07 10:19 | P.PN ---
Subjective Progress Note Date: 01/07/25 Patient is evaluated on the medical floor. She came back into the hospital because of a fall with right knee pain. Imaging reveals no acute fracture or dislocation as well as no joint effusion. She was evaluated by orthopedics because of this and the pain to her knee has essentially resolved. They are recommending a lidocaine patch as needed and follow-up with orthopedics on discharge. Patient continues on IV Zerbaxa for the positive sputum culture with pseudomonas and ID is following closely. She reports continued sputum production thick in nature. Was also having episodes of emesis although reports that she has not had a good sized bowel movement in the last 5 days. She does not want any rectal medications or any liquid laxatives. She states that she like to only try a pill for her constipation at this time. This may not be that effective however we will follow-up with the patient if she is still unable to have a bowel movement. Labs today reviewed sodium level of 134 potassium 3.9, BUN of 20 creatinine of 0.47. Blood glucose of 101. She is taken off of the long-acting insulin and will continue only on sliding scale as needed as she is having episodes of hypoglycemia. She continues on oral prednisone. Her white blood cell count is currently pending from today. She will require rehab on discharge. 12/30/2024 Patient evaluated today resting in the chair. Has a pain in her left upper abdomen. Feels anxious. States her brother is hospitalized at [facility] and not doing well. Initial sputum reveals pseudomonas aueroginosa, surinder albicans, and corynebacterium striatum group however sputum was repeated on 12/28 and reports as normal farooq. WBC 13.81, hgb 11.4. Sodium 142, potassium 4.4. BUN 18.8, creatinine 0.4. Glucose was low this AM. 12/31/2024 Patient evaluated in follow-up on the medical floor. She does report feeling better than yesterday and states that the pain in her upper abdomen is gone and she is less anxious. Her repeat sputum was negative so far she continues on IV zerbaxa with ID following closely. She has not had a bowel movement. Blood glucose is better without episodes of hypoglycemia and she remains off the Lantus. She continues on sliding scale insulin only. Patient evaluated today in follow up on the medical floor. Still has not had BM. Continues on oxygen via nasal cannula at 4L. Continues on IV zerbaxa for 10 days total of antibiotic therapy currently on day #3. Authorization has been obtained for rehab however awaiting if they can accommodate the patient on zerbaxa. WBC 16.53. Procalcitonin 0.35. 01/02/2025 . Patient evaluated in follow-up in the medical floor. She will receive IV Lasix x 1 today. She continues on oxygen via nasal cannula with saturations of 91% on 4 L. She states that she feels like a fish out of water. Patient is currently on a 10-day course of IV Zerbaxa for the Pseudomonas in the sputum. She will not be able to discharge to rehab until this has been completed. White blood cell count today is better at 12.83, hemoglobin 10.4, sodium of 138 potassium 4.8, CO2 level of 41.7 BUN of 17 creatinine 0.4. Procalcitonin level was 0.35. 01/03/2025 Patient is seen in follow-up today with no acute overnight issues noted. Patient continues to be weak and working with physical therapy will be going to ECF. Patient is maintained on Zerbaxa per ID recommendations for at least 7 days and this was started on 12/29/2024. Patient will continue until early next week. Unfortunately patient cannot go to ECF with this medication as it is too expensive although patient has multiple allergies to medications and resistance to other medications. Patient being followed by pulmonary and will continue current regimen with breathing treatments and continued supportive care. En couraged increase activity as tolerated with sitting up in the chair more frequently. Patient denies any chest pain or palpitations and denies nausea or vomiting has been tolerating diet. 01/04/2025 Patient is continued on Zerbaxa and will continue until 01/08/2025 per ID recommendations as patient had resistant sputum cultures initially with MRSA with significant COPD. Patient is awaiting to go to ECF and has been accepted by [facility] although needs to complete antibiotic regimen prior to due to the cost of the medication. Recommend PT/OT therapy daily as patient continues with weakness. Patient is impulsive and extremely high risk for falls and has had multiple falls at home that have been progressively getting worse over the last few weeks. 01/05/2025 Patient is seen in follow-up resting although arousable, continues antibiotics and will for 2 more days per ID recommendations. Plan is for [facility] on discharge although will need to complete antibiotic therapy. Will discuss with case management regarding discharge planning on Wednesday. 01/06/2025 Patient is seen and evaluated in follow-up today with pulmonary following along with infectious disease. Patient is receiving last dose of IV antibiotic in the form of Zerbaxa per infectious disease and will be discontinued. Patient will be monitored closely off antibiotic therapy with plans on going to [id number] on Wednesday. Patient is afebrile with no reported chest pain or palpitations. Continue with breathing treatments and anxiety medications as needed. Encourage sitting up in the chair more frequently at least with every meal. 01/07/2025 Patient is seen in follow-up today and per nursing staff at the bedside reports she acts a little more altered when she has a urinary tract infection. Patient has not been reporting any pain or burning or frequency with urination. Patient has been maintained on Zerbaxa and has completed per ID recommendations being monitored off antibiotic therapy. Will obtain a urinalysis for further evaluation. Patient to continue sitting up in the chair more frequently including with all meals and will be planning on discharge planning to [facility] in 24 hours. Patient is afebrile with no reports of chest pain or palpitations. Patient is chronically anxious and is maintained on anxiety medications. Review of Systems Constitutional: Denied any fatigue denied any fever. Cardio vascular: denied any chest pain, palpitations Gastrointestinal: denied any nausea, vomiting, no diarrhea, reports constipation at times Genitourinary: No reports of painful urination, frequency, urgency Pulmonary: Reports shortness of breath, reports intermittent cough Neurologic denied any new focal deficits, continues to be weak All inpatient medications were reviewed and appropriate changes in these medications as dictated in the interval history and assessment and plan. PHYSICAL EXAMINATION: GENERAL: The patient is alert and oriented x3, not in any acute distress. Mildly anxious, well developed, elderly appearing, obese HEENT: Pupils are round and equally reacting to light. EOMI. No scleral icterus. No conjunctival pallor. Normocephalic, atraumatic. No pharyngeal erythema. No thyromegaly. CARDIOVASCULAR: S1 and S2 muffled PULMONARY: Coarse ronchi throughout ABDOMEN: Soft, nontender, nondistended, obese, normoactive bowel sounds. No palpable organomegaly. MUSCULOSKELETAL: No joint swelling or deformity. Right knee pain. EXTREMITIES: No cyanosis, clubbing, or pedal edema. NEUROLOGICAL: Gross neurological examination did not reveal any focal deficits. Generalized weakness SKIN: No rashes. Assessment: -Fall with right knee pain, no fractures noted, conservative care per orthopedics -Weakness and medical debility requiring ERIBERTO on discharge -Acute on chronic hypoxic/Hypercapnic respiratory failure and chronically wears 3 L outpatient -Pneumonia with sepsis, present on admission -Leukocytosis secondary to above, trending down, also a component of steroid effect -Sputum culture positive for drug-resistant Pseudomonas; positive for MRSA back in November 2024 -Hyponatremia, hypovolemic, improved -Hyperglycemia treated with long-acting insulin, possibly steroid effect, with diabetes mellitus, type II, hemoglobin A1c is 7.7, uncontrolled -Lactic acidosis -Acute exacerbation COPD -Constipation -Hypertension -Anxiety/depression/bipolar disorder -Hypothyroidism -Thyroid nodule 2.[address] f/u ultrasound recommended -Obesity with a BMI of 36.8 -Continued ongoing nicotine dependence -History of mediastinal lymphadenopathy -Fibromyalgia and chronic pain syndrome -History of bipolar disorder -THC use -GI prophylaxis -DVT prophylaxis Plan: Patient has been continued on IV zerbaxa with ID following requiring a 10-day course of this for the sputum culture showing Pseudomonas her repeat sputum culture is negative so far. Antibiotics have been completed since 01/06/2025 and being monitored off antibiotic therapy per ID recommendations Plan is for [facility] on Wednesday for continued strength and mobility reports when she asks altered and more anxious she has history of having urinary tract infections. Patient denied any pain, burning, frequency or urgency with urination. Will obtain a urinalysis although unsure of how accurate this may be as patient has been maintained on antibiotics the entire hospitalization. Continue Duonebs scheduled and PRN continue monitoring accuchecks ACHS and sliding scale insulin and will adjust accordingly Patient has no documented history of diabetes however has had multiple and frequent hospitalizations for COPD/Pneumonia and has been maintained on steroids frequently over the last few months this is likely contributing to her elevated hemoglobin A1C of 7.7. Will adjust medications as needed and continue with close monitoring of her blood glucose Orthopedics following as needed and recommending lidocaine patch for the right knee and PT eval, outpatient follow up Pulmonology following recommending continuing current regimen and outpatient follow-up Continue bowel regimen scheduled as well as as needed Case management/social work following for DC planning and patient will be ready for discharge on Wednesday as patient's antibiotics in the form of Zerbaxa has been completed 01/06/2025 The impression and plan of care has been dictated by Audrey Curtis, Nurse Practitioner as directed. Dr. Indigo MD I have performed a history and examination and MDM of this patient, discussed the same with the dictator, and agree with the dictator's assessment and plan as written ,documented as a scribe. Based on total visit time, I have performed more than 50% of the visit. Objective - Vital Signs Vital signs: Vital Signs Temp 98.2 F 01/07/25 00:24 Pulse 74 01/07/25 08:00 Resp 18 01/07/25 08:00 BP 93/58 01/07/25 08:00 Pulse Ox 97 01/07/25 08:00 FiO2 Intake & Output 01/06/25 01/07/25 01/07/25 18:59 06:59 18:59 Intake Total 440 240 Output Total 250 Balance 190 240 Intake: Intake, IV Titration 100 Amount Ceftolozane/Tazobactam 3 100 gm In Sodium Chloride 0.9 % 100 ml @ 100 mls/hr IV Q8HR [facility] Rx#:[id number] Oral 340 240 Output: Urine 250 Other: Voiding Method Bedside Commode Diaper # Voids 3 4 - Labs CBC & Chem 7: 01/06/25 06:04 01/05/25 03:12 Labs: Abnormal Lab Results - Last 24 Hours (Table) 01/06/25 01/06/25 01/06/25 Range/Units 06:04 11:55 16:38 WBC 14.68 H (4.50-10.00) X 10*3/uL RBC 3.81 L (4.10-5.20) X 10*6/uL Hgb 11.3 L (12.0-15.0) g/dL MCV 102.4 H (80.0-97.0) FL MCHC 29.0 L (32.0-37.0) g/dL MPV 9.0 L (9.5-12.2) FL Immature Gran # 0.28 H (0.00-0.04) X 10*3/uL Neutrophils # 10.78 H (1.80-7.70) X 10*3/uL Monocytes # 1.04 H (0.20-1.00) X 10*3/uL Basophils # 0.13 H (0.00-0.10) X 10*3/uL POC Glucose (mg/dL) 111 H 138 H (70-110) mg/dL 01/06/25 01/07/25 Range/Units 21:02 00:20 WBC (4.50-10.00) X 10*3/uL RBC (4.10-5.20) X 10*6/uL Hgb (12.0-15.0) g/dL MCV (80.0-97.0) FL MCHC (32.0-37.0) g/dL MPV (9.5-12.2) FL Immature Gran # (0.00-0.04) X 10*3/uL Neutrophils # (1.80-7.70) X 10*3/uL Monocytes # (0.20-1.00) X 10*3/uL Basophils # (0.00-0.10) X 10*3/uL POC Glucose (mg/dL) 205 H 149 H (70-110) mg/dL
[2025-01-07 11:21] LABS: Appearance,Urine Clear (Clear); Bilirubin,Urine Negative (Negative); Blood,Urine Negative (Negative); Color,Urine Colorless; Glucose,Urine (UA) Negative (Negative); Ketones,Urine Negative (Negative); Leukocyte Esterase,Urine Negative (Negative); Nitrite,Urine Negative (Negative); Protein,Urine Negative (Negative); Specific Gravity,Urine 1.006 (1.001-1.035); Urobilinogen,Urine <2.0 mg/dL (<2.0)
[2025-01-07 11:36] LABS: Glucose,Whole Blood 132 mg/dL (70-110)
--- NOTE | 2025-01-07 15:40 | P.PN ---
Subjective Progress Note Date: 01/07/25 Principal diagnosis: Reason for follow-up is pneumonia MDRO Pseudomonas Patient is a 69-year-old female with a past medical history significant for Asthma, Heart Failure, COPD, Fibromyalgia, recurrent pneumonia presented to the hospital with increasing shortness of breath and cough has been diagnosed with pneumonia with recent sputum positive for drug-resistant Pseud omonas On today's evaluation that is 01/07/2025, Patient is afebrile patient is currently on 4 L nasal cannula oxygen and breathing slightly comfortably, the patient denies any chest pain or any worsening cough, the patient denies any nausea vomiting did not have any abdominal pain and no diarrhea. Patient did have a negative UA no CBC was done today Objective - Vital Signs Vital signs: Vital Signs Temp 98.2 F 01/07/25 09:21 Pulse 80 01/07/25 13:07 Resp 14 01/07/25 09:21 BP 107/62 01/07/25 09:21 Pulse Ox 96 01/07/25 10:00 FiO2 Intake & Output 01/06/25 01/07/25 01/07/25 18:59 06:59 18:59 Intake Total 440 240 Output Total 250 Balance 190 240 Intake: Intake, IV Titration 100 Amount Ceftolozane/Tazobactam 3 100 gm In Sodium Chloride 0.9 % 100 ml @ 100 mls/hr IV Q8HR [facility] Rx#:[id number] Oral 340 240 Output: Urine 250 Other: Voiding Method Bedside Commode Diaper # Voids 3 4 - Exam GENERAL DESCRIPTION: An elderly female lying in bed in no distress RESPIRATORY SYSTEM: Unlabored breathing , decreased breath sounds at bases HEART: S1 S2 regular rate and rhythm , ABDOMEN: Soft , no tenderness EXTREMITIES: No edema feet - Labs CBC & Chem 7: 01/06/25 06:04 01/05/25 03:12 Labs: Abnormal Lab Results - Last 24 Hours (Table) 01/06/25 01/06/25 01/07/25 Range/Units 16:38 21:02 00:20 POC Glucose (mg/dL) 138 H 205 H 149 H (70-110) mg/dL 01/07/25 Range/Units 11:34 POC Glucose (mg/dL) 132 H (70-110) mg/dL Assessment and Plan (1) Sepsis Current Visit: Yes Status: Acute Code(s): A41.9 - SEPSIS, UNSPECIFIED ORGANISM SNOMED Code(s): 54777601 (2) Pseudomonas aeruginosa infection Current Visit: Yes Status: Acute Code(s): A49.8 - OTHER BACTERIAL INFECTIONS OF UNSPECIFIED SITE SNOMED Code(s): 40469881 (3) Pneumonia Current Visit: Yes Status: Acute Code(s): J18.9 - PNEUMONIA, UNSPECIFIED ORGANISM SNOMED Code(s): 469332106 (4) Allergy to multiple antibiotics Current Visit: No Status: Acute Code(s): Z88.1 - ALLERGY STATUS TO OTHER ANTIBIOTIC AGENTS SNOMED Code(s): 366899873 Plan: 1patient presented the hospital with sepsis in this patient who did have fever elevated lactic acid meeting criteria for SIRS/sepsis source is right lower lobe pneumonia with recent sputum culture positive for a drug-resistant Pseudomonas aeruginosa 2-patient with multiple antibiotic ALLERGIES that would limit the number of antibiotic safe to use 3patient has completed 10-day course of Zerbaxa for multidrug-resistant Pseudomonas pneumonia and the patient will be monitored closely off antibiotic therapy Dictation was produced using [employer] dictation software. please excuse any grammatical, word or spelling errors. Time with Patient: Less than 30
[2025-01-07 17:15] LABS: ABG Oxygen Saturation 91.4 % (94-97); ABG PCO2 69 mmHg (35-45); ABG PH 7.39 (7.35-7.45); ABG TCO2 44 mmol/L (19-24); Allen Test Performed? Yes
[2025-01-07 17:18] LABS: ABG PO2 58 mmHg (83-108)
[2025-01-07 17:19] LABS: ABG HCO3 42 mmol/L (21-25)
--- NOTE | 2025-01-07 17:39 | XR ---
EXAMINATION TYPE: XR chest 1V DATE OF EXAM: 01/07/2025 5:32 PM COMPARISON: Chest 12/27/2024. CLINICAL INDICATION: Female, 69 years old with history of low oxygen saturations; [facility] TECHNIQUE: XR chest 1V Frontal view of the chest. FINDINGS: Lungs/Pleura: Small bilateral pleural effusions and patchy appearing opacities in the right mid and l ower lung. Increasing interstitial opacities bilaterally. Heart/mediastinum: Cardiomediastinal silhouette is prominent in size. Musculoskeletal: No acute osseous pathology. Other findings: None IMPRESSION: Cardiomegaly and small bilateral pleural effusions. Patchy infiltrative opacities at the right lung b ase which could reflect atelectasis and/or pneumonia. Increasing interstitial opacities which could r eflect pulmonary vascular congestive changes or underlying infection. [facility] Magui Warner, , 01/07/2025 5:37 PM
[2025-01-07 20:48] LABS: Glucose,Whole Blood 163 mg/dL (70-110)
[2025-01-08 02:07] LABS: Glucose,Whole Blood 99 mg/dL (70-110)
[2025-01-08 06:07] LABS: Glucose,Whole Blood 83 mg/dL (70-110)
[2025-01-08 10:18] LABS: Basophils # (A) 0.07 X 10*3/uL (0.00-0.10); Basophils % (A) 0.5 %; Eosinophils % (A) 0.7 %; HCT 32.2 % (37.2-46.3); HGB 9.2 g/dL (12.0-15.0); Lymphocytes # (A) 2.21 X 10*3/uL (0.90-5.00); Lymphocytes % (A) 16.2 %; MCH 29.3 pg (27.0-32.0); MCHC 28.6 g/dL (32.0-37.0); MCV 102.5 FL (80.0-97.0); Mean Platelet Volume 9.4 FL (9.5-12.2); Monocytes # (A) 1.39 X 10*3/uL (0.20-1.00); Monocytes % (A) 10.2 %; NRBC Per 100 WBC 0 X 10*3/uL (0.00-0.01); Neutrophils # (A) 9.59 X 10*3/uL (1.80-7.70); Neutrophils % (A) 70.1 %; Platelet Count 217 X 10*3/uL (140-440); RBC 3.14 X 10*6/uL (4.10-5.20); RDW 14.3 % (11.5-14.5); WBC 13.68 X 10*3/uL (4.50-10.00)
[2025-01-08 10:44] LABS: BUN/Creat Ratio 30.33 Ratio (12.00-20.00); Blood Urea Nitrogen 18.2 mg/dL (9.0-27.0); Calcium 9.2 mg/dL (8.7-10.3); Carbon Dioxide 35.4 mmol/L (21.6-31.8); Chloride 90 mmol/L (96-109); Glucose 73 mg/dL (70-110); Potassium 4.9 mmol/L (3.5-5.5); Sodium 136 mmol/L (135-145)
[2025-01-08 11:20] LABS: Glucose,Whole Blood 89 mg/dL (70-110)
[2025-01-08 14:16] VITALS: BP 95/57; RESP 20; TEMP 98.3
--- NOTE | 2025-01-08 16:02 | P.DS ---
Providers Date of admission: 12/27/24 22:56 Expected date of discharge: 01/08/25 Attending physician: Megan Esparza Consults: 12/27/24 22:54 Consult Physician Routine Consulting Provider: Mayur Roche Consult Reason/Comments: copd Do you want consulting provider notified?: Yes 12/28/24 12:59 Consult Physician Routine Consulting Provider: Briseida Mcdonald Consult Reason/Comments: pseudomonas RESISTANT. ONLY sensitive to cefta/avibactam Do you want consulting provider notified?: Yes Primary care physician: Andrzej Wheeler Hospital Course: Final diagnosis -Fall with right knee pain, no fractures noted, conservative care per orthopedics -Weakness and medical debility requiring ERIBERTO on discharge -Acute on chronic hypoxic/Hypercapnic respiratory failure and chronically wears 3 L outpatient -Pneumonia with sepsis, present on admission -Leukocytosis secondary to above, trending down, also a component of steroid effect -Sputum culture positive for drug-resistant Pseudomonas; positive for MRSA back in November 2024 -Hyponatremia, hypovolemic, improved -Hyperglycemia treated with long-acting insulin, possibly steroid effect, with diabetes mellitus, type II, hemoglobin A1c is 7.7, uncontrolled -Lactic acidosis -Acute exacerbation COPD -Constipation -Hypertension -Anxiety/depression/bipolar disorder -Hypothyroidism -Thyroid nodule 2.[address] on Chest CT f/u ultrasound recommended -Obesity with a BMI of 36.8 -Continued ongoing nicotine dependence -History of mediastinal lymphadenopathy -Fibromyalgia and chronic pain syndrome -History of bipolar disorder -THC use -GI prophylaxis -DVT prophylaxis Discharge disposition Patient is being discharged in a stable condition with guarded prognosis to [facility]. Patient will follow-up with Dr. Andrzej Wheeler in the outpatient setting upon discharge. Patient is to continue with DuoNeb treatments along with inhalers and outpatient follow-up with infectious disease and pulmonary as scheduled. Patient to follow-up with orthopedics in the outpatient setting on discharge. Total time taken is greater than 35 minutes. Hospital course This is a 69 year-old female who was recently admitted with increased weakness with significant shortness of breath with COPD exacerbation also with recurrent falls and medical debility. Patient being closely monitored with pulmonary along with infectious disease noted to have positive sputum with MRSA and pneumonia with sepsis, present on admission. Patient also with generalized weakness and recurrent falls was evaluated by physical therapy recommending rehab and patient is now agreeable. Patient was maintained on Zerbaxa with infectious disease following and has received adequate antibiotics and will not require antibiotics on discharge. Recommend close outpatient follow-up with pulmonary along with primary care provider. Patient also evaluated by orthopedics for the right knee pain which appears chronic with no surgical interventions planned and no fractures noted recommending continuing physical therapy and outpatient follow-up as needed. Patient has been cleared by consultations and will be discharged to [facility] today. Patient did receive insurance authorization. Please refer to other consultation notes for further HPI. Patient does have an extreme history of anxiety and bipolar with mental health disorder and is extremely tearful at times. Recommend Xanax twice daily to 3 times daily as needed. Patient has been referred to outpatient pain clinic multiple times although has not made it and patient does suffer with fibromyalgia and chronic pain. Would recommend outpatient follow-up with pain management as patient continues to take [place] for pain. Currently no reports of chest pain, shortness of breath, or palpitations. Patient is afebrile. No reports of nausea or vomiting and patient is tolerating diet. Patient will be going to [facility] today. High risk for readmissions given significant comorbidities. Physical exam: Gen: This is a 69-year-old female who is asleep although easily arousable, awake, alert and oriented x 2, baseline, anxious, well-developed, elderly appearing, obese HEENT: Head is atraumatic, normocephalic. Pupils equal, round. Sclerae is anicteric. NECK: Supple. No JVD. No lymphadenopathy. No thyromegaly. LUNGS: Diminished breath sounds bilaterally otherwise clear to auscultation. No wheezes noted unless forced and expiratory wheezing is noted. Coarse scattered rhonchi. No intercostal retractions. HEART: S1, S2 are muffled ABDOMEN: Soft. Obese bowel sounds are present. No masses. No tenderness. EXTREMITIES: No pedal edema. No calf tenderness. Diffusely weak NEUROLOGICAL: Patient is awake, alert and oriented x to, baseline. Cranial nerves 2 through 12 are grossly intact. Please refer to medication reconciliation sheet for a list of medications. The impression and plan of care has been dictated by Audrey Curtis, Nurse Practitioner as directed. Dr. Micky MD I have performed a history and examination and MDM of this patient, discussed the same with the dictator, and agree with the dictator's assessment and plan as written ,documented as a scribe. Based on total visit time, I have performed more than 50% of the visit. Patient Condition at Discharge: Stable Plan - Discharge Summary Discharge Rx Participant: No New Discharge Prescriptions: New bisacodyL [Dulcolax] 10 mg PO DAILY tab Nicotine 14Mg/24Hr Patch [Habitrol] 1 patch TRANSDERM DAILY patch Budesonide-Formot 160-4.5 Mcg [Symbicort 160-4.5 Mcg Inhaler] 2 puff INHALATION RT-BID each Docusate [Colace] 100 mg PO DAILY cap Heparin Sodium,Porcine (1 ml) [Heparin Sodium] 5,000 unit SQ Q12HR each polyethylene glycoL 3350 [Miralax] 17 gm PO HS packet Nystatin 100,000 Unit/gm Powd [Mycostatin Powder] 1 applic TOPICAL BID PRN each PRN Reason: Rash HYDROcodone/APAP 5-325MG [[place] 5-325] 1 each PO Q8H PRN #4 tab PRN Reason: Pain Continue Montelukast [Singulair] 10 mg PO HS Levothyroxine Sodium [Synthroid] 150 mcg PO DAILY Ipratropium-Albuterol Nebulize [Duoneb 0.5 mg-3 mg/3 ml Soln] 3 ml INHALATION RT-QID clonazePAM [KlonoPIN ODT] 0.25 mg PO HS lamoTRIgine [LaMICtal] 100 mg PO BID busPIRone HCL [Buspar] 30 mg PO BID Fluticasone/Umeclidin/Vilanter [Trelegy Ellipta 200-62.5-25] 1 puff INHALATION RT-DAILY Furosemide [Lasix] 20 mg PO DAILY guaiFENesin [Mucinex] 600 mg PO BID Famotidine [Pepcid] 20 mg PO BID Tamsulosin [Flomax] 0.4 mg PO DAILY Albuterol Inhaler [Ventolin Hfa Inhaler] 2 puff INHALATION RT-QID PRN #1 each PRN Reason: Shortness Of Breath Metoprolol Tartrate [Lopressor] 25 mg PO BID Divalproex ER [Depakote ER] 250 mg PO BID #60 tab Gabapentin 300 mg PO TID OLANZapine 15 mg PO HS Venlafaxine HCl [Effexor XR] 150 mg PO DAILY amLODIPine [Norvasc] 5 mg PO BID 30 Days #60 tab lisinopriL [Zestril] 10 mg PO DAILY 30 Days #30 tab Nitroglycerin Sl Tabs [Nitrostat] 0.4 mg SUBLINGUAL Q5M PRN #20 tab PRN Reason: Chest Pain Ipratropium-Albuterol Nebulize [Duoneb 0.5 mg-3 mg/3 ml Soln] 3 ml INHALATION RT-Q4H PRN each PRN Reason: shortness of breath ALPRAZolam [Xanax] 0.25 mg PO BID PRN 5 Days #10 tab PRN Reason: Anxiety Discontinued HYDROcodone/APAP 5-325MG [[place] 5-325] 1 tab PO BID PRN PRN Reason: Pain predniSONE See Taper PO DIRECTED #30 tab Azithromycin [Zithromax] 500 mg PO DIRECTED Discharge Medication List Montelukast [Singulair] 10 mg PO HS 12/17/13 [History] Levothyroxine Sodium [Synthroid] 150 mcg PO DAILY 03/29/20 [History] Famotidine [Pepcid] 20 mg PO BID 09/03/21 [History] Tamsulosin [Flomax] 0.4 mg PO DAILY 10/26/21 [History] Ipratropium-Albuterol Nebulize [Duoneb 0.5 mg-3 mg/3 ml Soln] 3 ml INHALATION RT-QID 11/13/22 [History] Albuterol Inhaler [Ventolin Hfa Inhaler] 2 puff INHALATION RT-QID PRN #1 each 11/17/22 [Rx] clonazePAM [KlonoPIN ODT] 0.25 mg PO HS 12/12/23 [History] lamoTRIgine [LaMICtal] 100 mg PO BID 03/18/24 [History] Metoprolol Tartrate [Lopressor] 25 mg PO BID 05/16/24 [History] Divalproex ER [Depakote ER] 250 mg PO BID #60 tab 05/26/24 [Rx] Gabapentin 300 mg PO TID 06/01/24 [History] busPIRone HCL [Buspar] 30 mg PO BID 06/09/24 [History] Fluticasone/Umeclidin/Vilanter [Trelegy Ellipta 200-62.5-25] 1 puff INHALATION RT-DAILY 10/17/24 [History] OLANZapine 15 mg PO HS 10/17/24 [History] Venlafaxine HCl [Effexor XR] 150 mg PO DAILY 10/17/24 [History] amLODIPine [Norvasc] 5 mg PO BID 30 Days #60 tab 10/21/24 [Rx] lisinopriL [Zestril] 10 mg PO DAILY 30 Days #30 tab 10/21/24 [Rx] Nitroglycerin Sl Tabs [Nitrostat] 0.4 mg SUBLINGUAL Q5M PRN #20 tab 11/30/24 [Rx] Furosemide [Lasix] 20 mg PO DAILY 12/11/24 [History] guaiFENesin [Mucinex] 600 mg PO BID 12/24/24 [History] Ipratropium-Albuterol Nebulize [Duoneb 0.5 mg-3 mg/3 ml Soln] 3 ml INHALATION RT-Q4H PRN each 12/26/24 [Rx] ALPRAZolam [Xanax] 0.25 mg PO BID PRN 5 Days #10 tab 01/08/25 [Rx] Budesonide-Formot 160-4.5 Mcg [Symbicort 160-4.5 Mcg Inhaler] 2 puff INHALATION RT-BID each 01/08/25 [Rx] Docusate [Colace] 100 mg PO DAILY cap 01/08/25 [Rx] HYDROcodone/APAP 5-325MG [[place] 5-325] 1 each PO Q8H PRN #4 tab 01/08/25 [Rx] Heparin Sodium,Porcine (1 ml) [Heparin Sodium] 5,000 unit SQ Q12HR each 01/08/25 [Rx] Nicotine 14Mg/24Hr Patch [Habitrol] 1 patch TRANSDERM DAILY patch 01/08/25 [Rx] Nystatin 100,000 Unit/gm Powd [Mycostatin Powder] 1 applic TOPICAL BID PRN each 01/08/25 [Rx] bisacodyL [Dulcolax] 10 mg PO DAILY tab 01/08/25 [Rx] polyethylene glycoL 3350 [Miralax] 17 gm PO HS packet 01/08/25 [Rx] Follow up Appointment(s)/Referral(s): Andrzej Wheeler MD [Primary Care Provider] - 1-2 days Ana Maria Carr MD [STAFF PHYSICIAN] - 1 Week Activity/Diet/Wound Care/Special Instructions: [facility] Follow-up with pulmonary outpatient Follow-up with primary care provider on discharge Discharge Disposition: TRANSFER TO SNF/ECF
[2025-01-08 16:53] VITALS: PULSE 74
[2025-01-08 17:02] LABS: Glucose,Whole Blood 123 mg/dL (70-110)
--- NOTE | 2025-01-08 19:42 | P.PN ---
Subjective Progress Note Date: 01/08/25 On 01/08/2025, the patient is being seen for a follow-up. Patient was hospitalized for acute COPD exacerbation. The patient is known to have previous history of multidrug-resistant pseudomonal respiratory tract infection/colonization. Sputum sample from 12/25/2024 was again positive for Pseudomonas aeruginosa similar to the sputum samples from 12/19/2024 and 04/05/2024. She is also been infected with MRSA in the past. In 108, the patient is very emotional and she is emotionally labile. Most recent chest x- ray from 01/07/2025 shows cardiomegaly with small right pleural effusion and patchy pulmonary filtrates specially in the right lung base which could be also an area of atelectasis. The white cell count is 13.6 with a hemoglobin of 9.2 and a platelet count 217. Serum bicarb is chronically elevated at 35 with a BUN of 18 and a creatinine of 0.6. She remains on DuoNeb the regiment [id number]. On Symbicort. She is also on her long-term home medications and all of her home medications have been resumed. Overall, doing well. She is on 4 L of oxygen by nasal cannula with a pulse ox of 93%. No other significant events overnight. Objective - Vital Signs Vital signs: Vital Signs Temp 98.3 F 01/08/25 14:00 Pulse 72 01/08/25 14:00 Resp 20 01/08/25 14:00 BP 95/57 01/08/25 14:00 Pulse Ox 93 L 01/08/25 14:00 FiO2 Intake & Output 01/07/25 01/08/25 01/08/25 18:59 06:59 18:59 Intake Total 340 Balance 340 Intake: Oral 340 Other: Voiding Method Bedside Commode Bedside Commode Diaper Diaper # Voids 2 1 # Bowel Movements 1 - Exam GENERAL EXAM: Alert, 69-year-old female, appears older than stated age, sitting up in bed, on 4 L nasal cannula, in no acute distress. HEAD: Normocephalic. EYES: Normal reaction of pupils, equal size. NOSE: Clear with pink turbinates. THROAT: No erythema or exudates. NECK: No masses, no JVD. CHEST: No chest wall deformity. LUNGS: Equal air entry with coarse rhonchi and wheeze bilaterally. CVS: S1 and S2 normal with no audible murmur, regular rhythm. ABDOMEN: No hepatosplenomegaly, normal bowel sounds, no guarding or rigidity. SPINE: No scoliosis or deformity SKIN: No rashes CENTRAL NERVOUS SYSTEM: No focal deficits, tone is normal in all 4 extremities. EXTREMITIES: There is no peripheral edema. No clubbing, no cyanosis. Peripheral pulses are intact. - Labs CBC & Chem 7: 01/08/25 03:56 01/08/25 03:56 Labs: Abnormal Lab Results - Last 24 Hours (Table) 01/07/25 01/07/25 01/08/25 Range/Units 17:10 20:47 03:56 WBC 13.68 H (4.50-10.00) X 10*3/uL RBC 3.14 L (4.10-5.20) X 10*6/uL Hgb 9.2 L (12.0-15.0) g/dL Hct 32.2 L (37.2-46.3) % MCV 102.5 H (80.0-97.0) FL MCHC 28.6 L (32.0-37.0) g/dL MPV 9.4 L (9.5-12.2) FL Immature Gran # 0.32 H (0.00-0.04) X 10*3/uL Neutrophils # 9.59 H (1.80-7.70) X 10*3/uL Monocytes # 1.39 H (0.20-1.00) X 10*3/uL ABG pCO2 69 H (35-45) mmHg ABG pO2 58 L* (83-108) mmHg ABG HCO3 42 H* (21-25) mmol/L ABG Total CO2 44 H (19-24) mmol/L ABG O2 Saturation 91.4 L (94-97) % Hemoglobin 9.4 L (11.4-16.0) gm/dL Chloride (96-109) mmol/L Carbon Dioxide (21.6-31.8) mmol/L BUN/Creatinine Ratio (12.00-20.00) Ratio POC Glucose (mg/dL) 163 H (70-110) mg/dL 01/08/25 Range/Units 03:56 WBC (4.50-10.00) X 10*3/uL RBC (4.10-5.20) X 10*6/uL Hgb (12.0-15.0) g/dL Hct (37.2-46.3) % MCV (80.0-97.0) FL MCHC (32.0-37.0) g/dL MPV (9.5-12.2) FL Immature Gran # (0.00-0.04) X 10*3/uL Neutrophils # (1.80-7.70) X 10*3/uL Monocytes # (0.20-1.00) X 10*3/uL ABG pCO2 (35-45) mmHg ABG pO2 (83-108) mmHg ABG HCO3 (21-25) mmol/L ABG Total CO2 (19-24) mmol/L ABG O2 Saturation (94-97) % Hemoglobin (11.4-16.0) gm/dL Chloride 90 L (96-109) mmol/L Carbon Dioxide 35.4 H (21.6-31.8) mmol/L BUN/Creatinine Ratio 30.33 H (12.00-20.00) Ratio POC Glucose (mg/dL) (70-110) mg/dL Assessment and Plan Plan: Acute hypoxic respiratory failure secondary to an acute exacerbation of chronic obstructive pulmonary disease and resistant Pseudomonas aeruginosa. CT angiogram ruled out pulmonary embolism. There is no significant change in the lung opacities compared to December 28, 2024. Streaky opacities in the lung bases right greater than left thought to be combination of atelectasis versus airspace disease. Mild cardiomegaly with trace bilateral pleural effusions and pulmonary vascular congestion Sputum culture from 12/25/2024 positive for Pseudomonas aeruginosa, amalia solisi maury, completed 10-day course of Zerbaxa. Sputum culture this admission reveals no growth. Procalcitonin negative Left hemidiaphragm elevation possible paralysis Chronic obstructive pulmonary disease, with an FEV1 64% predicted, Gold stage II Chronic hypoxemic respiratory failure, secondary to combination of above Severe hyperglycemia Pseudohyponatremia, secondary to above Leukocytosis, possibly secondary to steroid use Sputum positive for MRSA 11/27/2024 Chronic ongoing tobacco dependence Hypothyroidism Hypertension History of mediastinal lymphadenopathy History of gastric bypass surgery Bipolar disorder Fibromyalgia and chronic pain syndrome Plan: The patient is overall stable on 4 L of oxygen by nasal cannula. Her COPD is advanced and recommend continuing Trelegy Ellipta on outpatient basis maintenance, smoking cessation albuterol rescue inhaler and nebulizer treatments are necessary based on the patient has DuoNeb that she can utilize on an outpatient basis. No need for systemic steroids. No need for antibiotic coverage at this point. The patient has completed 10-day course of Zerbaxa for multidrug-resistant Pseudomonas and she will be monitored clinically at this point in time. ID is on the case. Time with Patient: Greater than 30
--- NOTE | 2025-01-09 09:36 | CDI ---
Documentation Clarification Form Date: 01/09/2025 09:09:53 AM From: Oksana Roche Phone: Admit Date: 12/27/2024 10:56:00 PM Patient Name: Haydee Mcpherson Visit Number: [id number] Discharge Date: 01/08/2025 07:38:00 PM ATTENTION: The Clinical Documentation Specialists (CDI) and [facility] Coding Staff appreciate your assistance in clarifying documentation. Please respond to the clarification below the line at the bottom and electronically sign. The CDI & [facility] Coding staff will review the response and follow-up if needed. Please note: Queries are made part of the Legal Health Record. If you have any questions, please contact the author of this message via ITS. Doctor/Provider: Megan Esparza The patient has acute on chronic hypoxic/Hypercapnic respiratory failure in addition to Pseudomonas PNA with sepsis. Based on this information and the findings below, is there an additional diagnosis that is clinically appropriate for this patient? History/Risk Factors: 69yo F, sepsis d/t Pseudomonas, AECOPD, HTN, BPD, anxiety, fall, debility, ACH/HRF on O2, hyponatremia,hypovolemic, NIDDMII w +BG d/t steroids, constipation, hypothyroidism, thyroid nodule, obesity, smoker, fibromyalgiaandchronic pain syndrome, THC use, recent MRSA Clinical Indicators: WBC: 21.47 Lactic acid: 3.3 Sputum: positive forPseudomonas. Patient is on oral antibiotics. Vitals signs: 12/27/2505/05/2506 22:05 22:09 22:56 T 97.7 F HI 77 75 75 RR 24 Rate BP 121/56 O2 91 91 12/27/2505/11/25 23:08 23:11 HI 68 71 RR 20 Rate BP 115/47 O2 94 Treatment: Initiated on Zerbaxa per ID service Is there an additional diagnosis that is clinically appropriate for this patient? [ ] Severe Sepsis with organ failure [ ] Septic Shock [ ] No additional diagnosis/not clinically significant [ ] Other, please specify [x ] Unable to determine SIRS Criteria: 2 or more of the following may indicate SIRS Temperature < 96.8F (36C) or > 101.0F (38.3C) Heart Rate > 90 bpm Respiratory Rate > 20 breaths/min or PaCO2 < 32 mmHg White Blood Cell Count > 12,000 or < 4,000 cells/mm3 or > 10% bands (Template Last Reviewed: July 2022) [facility]
--- NOTE | 2025-01-09 09:50 | CDI ---
Documentation Clarification Form Date: 01/09/2025 09:43:53 AM From: Oksana Roche Phone: Admit Date: 12/27/2024 10:56:00 PM Patient Name: Haydee Mcpherson Visit Number: [id number] Discharge Date: 01/08/2025 07:38:00 PM ATTENTION: The Clinical Documentation Specialists (CDI) and [facility] Coding Staff appreciate your assistance in clarifying documentation. Please respond to the clarification below the line at the bottom and electronically sign. The CDI & [facility] Coding staff will review the response and follow-up if needed. Please note: Queries are made part of the Legal Health Record. If you have any questions, please contact the author of this message via ITS. Doctor/Provider: Megan Esparza Your patient has the documented diagnosis of unspecified CHF throughout the notes. Additional information regarding the type of CHF is requested. History/Risk Factors: 69yo F,sepsis d/t Pseudomonas,AECOPD,HTN,BPD,anxiety, fall,debility, ACH/HRF on O2,hyponatremia,hypovolemic, NIDDMII w +BG d/t steroids,constipation,hypothyroidism,thyroid nodule,obesity,smoker, fibromyalgia, CPS,THC use, recentMRSA Clinical Indicators: Vitals signs: 12/27/250505/2506 22:05 22:09 22:56 T 97.7 F AR 77 75 75 RR 24 Rate BP 121/56 O2 91 91 12/27/2505/11/25 23:08 23:11 AR 68 71 RR 20 Rate BP 115/47 O2 94 BNP: 2780 Chest x ray: Elevatedleft hemidiaphragm. Curvy linearopacityin the right lower lobe. Enlarged heart. Treatment: monitored In your professional opinion, can you please clarify the type of CHF if known? [ ] Chronic Systolic Heart Failure (reduced EF) [ x ] Chronic Diastolic Heart Failure (preserved EF) [ ] Chronic Systolic & Diastolic Heart Failure [ ] Other, please specify [ ] Unable to determine (Template Last Revised: August 2020) MTDD
--- NOTE | 2025-01-09 17:10 | P.PN ---
Subjective Progress Note Date: 01/08/25 Principal diagnosis: Reason for follow-up is pneumonia MDRO Pseudomonas Patient is a 69-year-old female with a past medical history significant for Asthma, Heart Failure, COPD, Fibromyalgia, recurrent pneumonia presented to the hospital with increasing shortness of breath and cough has been diagnosed with pneumonia with recent sputum positive for drug-resistant Pseud omonas On today's evaluation that is 01/08/2025, patient has been afebrile, patient is breathing slightly comfortably and is currently on 4 L current oxygen, patient denies having any chest pain and cough has decreased in intensity, patient denies nausea vomiting or diarrhea and no abdominal pain. Patient white count is 13.68, creatinine 0.6 repeat sputum culture have been negative Objective - Vital Signs Vital signs: Vital Signs Temp 98.1 F 01/08/25 07:50 Pulse 86 01/08/25 11:10 Resp 18 01/08/25 07:50 BP 139/71 01/08/25 07:50 Pulse Ox 96 01/08/25 10:59 FiO2 Intake & Output 01/07/25 01/08/25 01/08/25 18:59 06:59 18:59 Intake Total 340 Balance 340 Intake: Oral 340 Other: Voiding Method Bedside Commode Bedside Commode Diaper Diaper # Voids 2 1 # Bowel Movements 1 - Exam GENERAL DESCRIPTION: An elderly female lying in bed in no distress RESPIRATORY SYSTEM: Unlabored breathing , decreased breath sounds at bases HEART: S1 S2 regular rate and rhythm , ABDOMEN: Soft , no tenderness EXTREMITIES: No edema feet - Labs CBC & Chem 7: 01/08/25 03:56 01/08/25 03:56 Labs: Abnormal Lab Results - Last 24 Hours (Table) 01/07/25 01/07/25 01/08/25 Range/Units 17:10 20:47 03:56 WBC 13.68 H (4.50-10.00) X 10*3/uL RBC 3.14 L (4.10-5.20) X 10*6/uL Hgb 9.2 L (12.0-15.0) g/dL Hct 32.2 L (37.2-46.3) % MCV 102.5 H (80.0-97.0) FL MCHC 28.6 L (32.0-37.0) g/dL MPV 9.4 L (9.5-12.2) FL Immature Gran # 0.32 H (0.00-0.04) X 10*3/uL Neutrophils # 9.59 H (1.80-7.70) X 10*3/uL Monocytes # 1.39 H (0.20-1.00) X 10*3/uL ABG pCO2 69 H (35-45) mmHg ABG pO2 58 L* (83-108) mmHg ABG HCO3 42 H* (21-25) mmol/L ABG Total CO2 44 H (19-24) mmol/L ABG O2 Saturation 91.4 L (94-97) % Hemoglobin 9.4 L (11.4-16.0) gm/dL Chloride (96-109) mmol/L Carbon Dioxide (21.6-31.8) mmol/L BUN/Creatinine Ratio (12.00-20.00) Ratio POC Glucose (mg/dL) 163 H (70-110) mg/dL 01/08/25 Range/Units 03:56 WBC (4.50-10.00) X 10*3/uL RBC (4.10-5.20) X 10*6/uL Hgb (12.0-15.0) g/dL Hct (37.2-46.3) % MCV (80.0-97.0) FL MCHC (32.0-37.0) g/dL MPV (9.5-12.2) FL Immature Gran # (0.00-0.04) X 10*3/uL Neutrophils # (1.80-7.70) X 10*3/uL Monocytes # (0.20-1.00) X 10*3/uL ABG pCO2 (35-45) mmHg ABG pO2 (83-108) mmHg ABG HCO3 (21-25) mmol/L ABG Total CO2 (19-24) mmol/L ABG O2 Saturation (94-97) % Hemoglobin (11.4-16.0) gm/dL Chloride 90 L (96-109) mmol/L Carbon Dioxide 35.4 H (21.6-31.8) mmol/L BUN/Creatinine Ratio 30.33 H (12.00-20.00) Ratio POC Glucose (mg/dL) (70-110) mg/dL Assessment and Plan (1) Sepsis Status: Acute Code(s): A41.9 - SEPSIS, UNSPECIFIED ORGANISM SNOMED Code(s): 60721070 (2) Pseudomonas aeruginosa infection Status: Acute Code(s): A49.8 - OTHER BACTERIAL INFECTIONS OF UNSPECIFIED SITE SNOMED Code(s): 84241050 (3) Pneumonia Status: Acute Code(s): J18.9 - PNEUMONIA, UNSPECIFIED ORGANISM SNOMED Code(s): 561038716 (4) Allergy to multiple antibiotics Status: Acute Code(s): Z88.1 - ALLERGY STATUS TO OTHER ANTIBIOTIC AGENTS SNOMED Code(s): 204876961 Plan: 1patient presented the hospital with sepsis in this patient who did have fever elevated lactic acid meeting criteria for SIRS/sepsis source is right lower lobe pneumonia with recent sputum culture positive for a drug-resistant Pseudomonas aeruginosa 2-patient with multiple antibiotic ALLERGIES that would limit the number of antibiotic safe to use 3patient has completed 10-day course of Zerbaxa for multidrug-resistant Pseudomonas pneumonia which is more than adequate and no need for any antibiotics on discharge Dictation was produced using [employer] dictation software. please excuse any grammatical, word or spelling errors.
== END 2025-01-08 19:38 | DRG 871 ==
LOC: EC 22:04 → 4SSUR 22:55 → OBSVTOIN 22:56 → 4SSUR 12-28 04:49
PROVIDERS: ADMIT Hospitalist; ATTEND Hospitalist
DX: A41.52 Sepsis due to Pseudomonas (principal); J18.9 Pneumonia, unspecified organism; J96.22 Acute and chronic respiratory failure with hypercapnia; J96.21 Acute and chronic respiratory failure with hypoxia; J44.0 Chronic obstructive pulmonary disease with (acute) lower respiratory infection; I11.0 Hypertensive heart disease with heart failure; E11.65 Type 2 diabetes mellitus with hyperglycemia; F31.9 Bipolar disorder, unspecified; E03.9 Hypothyroidism, unspecified; Z68.36 Body mass index [BMI] 36.0-36.9, adult; E04.1 Nontoxic single thyroid nodule; J44.1 Chronic obstructive pulmonary disease with (acute) exacerbation; I50.32 Chronic diastolic (congestive) heart failure; E87.29 Other acidosis; Z16.24 Resistance to multiple antibiotics; E87.1 Hypo-osmolality and hyponatremia; E11.649 Type 2 diabetes mellitus with hypoglycemia without coma; Z99.81 Dependence on supplemental oxygen; E66.9 Obesity, unspecified; F17.210 Nicotine dependence, cigarettes, uncomplicated; E86.1 Hypovolemia; K59.00 Constipation, unspecified; F41.9 Anxiety disorder, unspecified; G89.4 Chronic pain syndrome; M79.7 Fibromyalgia; R53.81 Other malaise; T38.0X5A Adverse effect of glucocorticoids and synthetic analogues, initial encounter; W19.XXXA Unspecified fall, initial encounter; R29.6 Repeated falls; Z79.52 Long term (current) use of systemic steroids; Z79.51 Long term (current) use of inhaled steroids; Z79.890 Hormone replacement therapy; Z79.899 Other long term (current) drug therapy; Z86.14 Personal history of Methicillin resistant Staphylococcus aureus infection; Z86.711 Personal history of pulmonary embolism; Z87.01 Personal history of pneumonia (recurrent); Z88.1 Allergy status to other antibiotic agents; Z91.81 History of falling; Z98.84 Bariatric surgery status
CPT/HCPCS: 36415; 36600; 71045; 71260; 71275; 80048; 80053; 81003; 82805; 83036; 83605; 83735; 83880; 84145; 84550; 85025; 85379; 87070; 87205; 93005; 94640; 94760; 96361; 96365; 99285

== ENCOUNTER 2025-01-24 00:09 | Inpatient (IN) | payer MEDICARE ==
[2025-01-24] MEDS: DEXTROSE 50% SYRINGE 50 ML IVP STA ×3 (00:26→06:26)
[2025-01-24 00:27] LABS: Glucose,Whole Blood 22 mg/dL (70-110)
[2025-01-24 00:28] LABS: ABG HCO3 39 mmol/L (21-25); ABG PH 7.30 (7.35-7.45); ABG PO2 63 mmHg (83-108); ABG TCO2 42 mmol/L (19-24); Allen Test Performed? Yes
[2025-01-24] MEDS: ALBUTEROL NEBULIZED 2.5 MG/3 ML INHALATION STA (00:36)
[2025-01-24] MEDS: IPRATROPIUM 0.5 MG/2.5 ML NEBU INHALATION STA (00:36)
[2025-01-24] MEDS: FUROSEMIDE 10 MG/ML 4 ML VIAL IV STA (00:38)
[2025-01-24 00:46] LABS: Glucose,Whole Blood 225 mg/dL (70-110)
[2025-01-24 00:46] LABS: HCT 32.1 % (37.2-46.3); HGB 10.0 g/dL (12.0-15.0); MCH 30.4 pg (27.0-32.0); MCHC 31.2 g/dL (32.0-37.0); MCV 97.6 fL (80.0-97.0); Platelet Count 389 10*3/uL (140-440); RBC 3.29 10*6/uL (4.10-5.20); RDW 13.9 % (11.5-14.5); WBC 22.79 10*3/uL (4.50-10.00)
[2025-01-24] MEDS: LEVOFLOXACIN 750MG-D5W PMX 750 MG in DEXTROSE/WATER 1 150ML.BAG IVPB STA (00:55)
[2025-01-24 01:00] LABS: INR 0.8 (<1.2); Partial Thromboplastin Time 26.4 sec (22.0-30.0); Prothrombin Time 9.6 sec (10.0-12.5)
--- NOTE | 2025-01-24 01:01 | CT ---
EXAM: CT Head Without Intravenous Contrast CLINICAL HISTORY: ITS.REASON CT Reason: AMS TECHNIQUE: Axial computed tomography images of the head/brain without intravenous contrast. CTDI is 49.1 mGy and DLP is 1170.4 mGy-cm. This CT exam was performed using one or more of the following dose reduction techniques: automated exposure control, adjustment of the mA and/or kV according to patient size, and/or use of iterative reconstruction technique. COMPARISON: No relevant prior studies available. FINDINGS: No acute intracranial hemorrhage. No midline shift or mass effect. The territorial joyner-white matter differentiation is maintained throughout. Age-related cerebral volume loss. Periventricular and subcortical white matter hypoattenuation, consistent with chronic microangiopathy. The visualized orbits appear grossly unremarkable. The calvarium is intact. The visualized paranasal sinuses and mastoid air cells are grossly clear. IMPRESSION: No acute intracranial hemorrhage, midline shift, or mass effect.
[2025-01-24 01:11] LABS: Glucose,Whole Blood 171 mg/dL (70-110)
--- NOTE | 2025-01-24 01:16 | XR ---
EXAM: XR Chest, 1 View CLINICAL HISTORY: ITS.REASON XR Reason: AMS, difficulty breathing, known pneumonia TECHNIQUE: Frontal view of the chest. COMPARISON: No relevant prior studies available. FINDINGS: Lungs: Patchy bilateral airspace consolidations in the perihilar and lung base regions, consistent with multilobar pneumonia. Small bilateral parapneumonic effusions. Pleural space: Unremarkable. No pneumothorax. Heart: Cardiomegaly. Cardiomegaly. Mediastinum: Unremarkable. Bones/joints: Unremarkable. IMPRESSION: Patchy bilateral airspace consolidations in the perihilar and lung base regions, consistent with multilobar pneumonia. Small bilateral parapneumonic effusions.
[2025-01-24 01:25] LABS: ABG PCO2 81 mmHg (35-45)
[2025-01-24 01:32] LABS: ALT 51 U/L (4-34); African American GFR (CKD) >90 (>60 ml/min/1.73 sqM); Albumin 3.4 g/dL (3.5-5.0); Anion Gap 5 mmol/L; Blood Urea Nitrogen 31 mg/dL (7-17); Calcium 9.8 mg/dL (8.4-10.2); Carbon Dioxide 36 mmol/L (22-30); Chloride 87 mmol/L (98-107); Non-African American GFR(CKD) >90 (>60 ml/min/1.73 sqM); Sodium 128 mmol/L (137-145); Total Protein 5.6 g/dL (6.3-8.2)
[2025-01-24 01:35] LABS: AST 109 U/L (14-36); Alkaline Phosphatase 111 U/L (38-126); Glucose <20 mg/dL (74-99); Magnesium 1.8 mg/dL (1.6-2.3); Potassium 5.1 mmol/L (3.5-5.1)
[2025-01-24 01:35] LABS: Glucose,Whole Blood 155 mg/dL (70-110)
[2025-01-24 01:39] LABS: NT-Pro-B-Type Natriuretic Pept 1250 pg/mL
[2025-01-24 01:57] LABS: Bilirubin,Urine Negative (Negative); Blood,Urine Negative (Negative); Color,Urine Colorless; Glucose,Urine (UA) 1+ (Negative); Ketones,Urine Negative (Negative); Leukocyte Esterase,Urine Negative (Negative); Nitrite,Urine Negative (Negative); PH, Urine 5.0 (5.0-8.0); Protein,Urine Negative (Negative); Specific Gravity,Urine 1.014 (1.001-1.035); Urobilinogen,Urine <2.0 mg/dL (<2.0)
[2025-01-24 02:12] LABS: Glucose,Whole Blood 135 mg/dL (70-110)
[2025-01-24 02:50] LABS: Eosinophils # (M) 0.46 k/uL (0-0.7); Lymphocytes # (M) 1.82 k/uL (1.0-4.8); Metamyelocytes # (M) 0.23 k/uL (0); Monocytes # (M) 2.51 k/uL (0-1.0); Neutrophils # (M) 17.77 k/uL (1.3-7.7); Neutrophils % (M) 66 %; Total Cells Counted 100
--- NOTE | 2025-01-24 02:52 | ED ---
General Adult HPI - General Chief complaint: Shortness of Breath Stated complaint: ИВАН Time Seen by Provider: 01/24/25 00:28 Source: patient, EMS Mode of arrival: EMS Limitations: altered mental status - History of Present Illness Initial comments: Patient is a 69-year-old female past medical history of CHF, COPD, chronic hypoxemic respiratory failure on 5 L oxygen nasal cannula, prior PE, diabetes presenting today from [facility] for difficulty in breathing. History is limited by patient's altered mental status. Per paramedics they were called to the [facility] for difficulty breathing altered mental status. Patient is reportedly AO x 3 to 4 at baseline. She had 2 episodes of confusion earlier this evening. When her nurse came to check on her he found her confused and short of breath. On lion tamer arrival pulse ox was 60% on her home 5 L. She was drowsy and tachypneic. She was given 125 of Solu-Medrol, a breathing treatment and placed on a nonrebreather however and route to the ER became even more drowsy, had a respiratory rate of 8 and so paramedics began providing assisted ventilations to the patient as I thought she was too altered to receive CPAP. Additionally she received 1 sublingual nitroglycerin prior to arrival. Of note patient was started on Levaquin today for pneumonia. - Related Data Home Medications Medication Instructions Recorded Confirmed Montelukast [Singulair] 10 mg PO HS 12/17/13 12/28/24 Levothyroxine Sodium [Synthroid] 150 mcg PO DAILY 03/29/20 12/28/24 Famotidine [Pepcid] 20 mg PO BID 09/03/21 12/28/24 Tamsulosin [Flomax] 0.4 mg PO DAILY 10/26/21 12/28/24 Ipratropium-Albuterol Nebulize 3 ml INHALATION RT-QID 11/13/22 12/28/24 [Duoneb 0.5 mg-3 mg/3 ml Soln] lamoTRIgine [LaMICtal] 100 mg PO BID 03/18/24 12/28/24 Metoprolol Tartrate [Lopressor] 25 mg PO BID 05/16/24 12/28/24 Gabapentin 300 mg PO TID 06/01/24 12/28/24 busPIRone HCL [Buspar] 30 mg PO BID 06/09/24 12/28/24 Fluticasone/Umeclidin/Vilanter 1 puff INHALATION RT-DAILY 10/17/24 12/28/24 [Trelegy Ellipta 200-62.5-25] OLANZapine 15 mg PO HS 10/17/24 12/28/24 Venlafaxine HCl [Effexor XR] 150 mg PO DAILY 10/17/24 12/28/24 Furosemide [Lasix] 20 mg PO DAILY 12/11/24 12/28/24 guaiFENesin [Mucinex] 600 mg PO BID 12/24/24 12/28/24 Previous Rx's Medication Instructions Recorded Albuterol Inhaler [Ventolin Hfa 2 puff INHALATION RT-QID PRN #1 11/17/22 Inhaler] each Divalproex ER [Depakote ER] 250 mg PO BID #60 tab 05/26/24 amLODIPine [Norvasc] 5 mg PO BID 30 Days #60 tab 10/21/24 lisinopriL [Zestril] 10 mg PO DAILY 30 Days #30 tab 10/21/24 Nitroglycerin Sl Tabs [Nitrostat] 0.4 mg SUBLINGUAL Q5M PRN #20 tab 11/30/24 Ipratropium-Albuterol Nebulize 3 ml INHALATION RT-Q4H PRN each 12/26/24 [Duoneb 0.5 mg-3 mg/3 ml Soln] ALPRAZolam [Xanax] 0.25 mg PO BID PRN 5 Days #10 tab 01/08/25 Budesonide-Formot 160-4.5 Mcg 2 puff INHALATION RT-BID each 01/08/25 [Symbicort 160-4.5 Mcg Inhaler] Docusate [Colace] 100 mg PO DAILY cap 01/08/25 HYDROcodone/APAP 5-325MG [Banks 1 each PO Q8H PRN #4 tab 01/08/25 5-325] Heparin Sodium,Porcine (1 ml) 5,000 unit SQ Q12HR each 01/08/25 [Heparin Sodium] Nicotine 14Mg/24Hr Patch [Habitrol] 1 patch TRANSDERM DAILY patch 01/08/25 Nystatin 100,000 Unit/gm Powd 1 applic TOPICAL BID PRN each 01/08/25 [Mycostatin Powder] bisacodyL [Dulcolax] 10 mg PO DAILY tab 01/08/25 clonazePAM [KlonoPIN ODT] 0.25 mg PO HS #4 tab 01/08/25 polyethylene glycoL 3350 [Miralax] 17 gm PO HS packet 01/08/25 Allergies Allergy/AdvReac Type Severity Reaction Status Date / Time codeine Allergy Unknown Verified 01/24/25 00:32 Childhood Penicillins Allergy Rash/Hives Verified 01/24/25 00:32 Sulfa (Sulfonamide Allergy Rash/Hives Verified 01/24/25 00:32 Antibiotics) Review of Systems ROS Statement: Those systems with pertinent positive or pertinent negative responses have been documented in the HPI. ROS Other: All systems not noted in ROS Statement are negative. 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 History of Any Multi-Drug Resistant Organisms: MRSA, Other MDRO Date of last positivie culture/infection: 12/19/24-Other MDRO; 11/27/24-MRSA MDRO Source:: Other MDRO-sputum; MRSA-sputum, knee Past Surgical History: Bariatric Surgery, Section, Cholecystectomy, Hysterectomy, Tonsillectomy Additional Past Surgical History / Comment(s): EGD, colonoscopies, gastric bypass, surgery for deviated septum, left cataract removal (having laser procedure on that eye 11/24/23) Past Anesthesia/Blood Transfusion Reactions: Previous Problems w/ Anesthesia Additional Past Anesthesia/Blood Transfusion Reaction / Comment(s): itching after hysterectomy, some kind of breathing problem after gastric bypass-not sure what happened Past Psychological History: Anxiety, Bipolar, Depression, Panic Disorder Smoking Status: Current every day smoker Past Alcohol Use History: None Reported Past Drug Use History: Marijuana - Past Family History Mother Family Medical History: Congestive Heart Failure (CHF), Hypertension Father History Unknown: Yes Additional Family Medical History / Comment(s): Father at the age of 45 yrs d/t having had rheumatic fever as a child and heart valve disease. General Exam - General Exam Comments Initial Comments: PE: CONSTITUTIONAL: In acute distress, ill-appearing, intermittently opens eyes, receiving assisted ventilations, sponteanously weakly moves upper extremities SKIN: Warm, dry, no jaundice, hives or petechiae EYES: Pupils are equally round, extraocular movements intact without nystagmus, clear conjunctiva, non-icteric sclera HENT: Normocephalic, atraumatic, moist mucus membranes, oropharynx clear without exudates NECK: , Full range of motion, normal appearance PULMONARY: Rhonchi and crackles throughout all lung flores, with scant wheezes in the apices, bradyapnea, decreased excursions, intermittent spontaneous respi rations CARDIOVASCULAR: Regular rate, rhythm, normal S1 and S2. No appreciated murmurs, rubs or gallops. Strong radial pulses with intact distal perfusion. No lower extremity edema GASTROINTESTINAL: Soft, active bowel sounds throughout, non-tender,mildly distended no palpable masses, no rebound or guarding. No hepatosplenomegaly MUSCULOSKELETAL: Extremities have no gross deformity, no edema, redness, or swelling. No calf swelling NEUROLOGIC:_a/o x 0, GCS 11, confused mentation and incomprehensible speech. Weakly moves all 4 extremities PSYCHIATRIC: Unable to assess Limitations: altered mental status Course Vital Signs 01/24/25 01/24/25 01/24/25 00:11 00:33 00:37 Temperature 98 F Pulse Rate 88 86 Respiratory 16 18 Rate Blood Pressure 130/77 107/56 O2 Sat by Pulse 88 L 94 L Oximetry Fraction of 80 Inspired Oxygen (FIO2) 01/24/25 01/24/25 01/24/25 00:38 00:54 01:28 Temperature Pulse Rate 81 76 71 Respiratory 17 20 14 Rate Blood Pressure O2 Sat by Pulse Oximetry Fraction of 80 Inspired Oxygen (FIO2) 01/24/25 01/24/25 01/24/25 02:20 03:36 04:28 Temperature Pulse Rate 77 91 Respiratory 16 17 Rate Blood Pressure 130/60 121/71 O2 Sat by Pulse 96 98 Oximetry Fraction of 70 Inspired Oxygen (FIO2) 01/24/25 01/24/25 05:41 06:36 Temperature Pulse Rate 94 92 Respiratory 16 22 Rate Blood Pressure 140/56 132/90 O2 Sat by Pulse 98 96 Oximetry Fraction of Inspired Oxygen (FIO2) EKG Findings - EKG Comments: EKG Findings:: Sinus rhythm, rate 95 bpm, intervals within acceptable limits, artifact present limiting interpretation however left axis deviation, no significant ST elevations or depressions, no arrhythmia Medical Decision Making - Medical Decision Making Was pt. sent in by a medical professional or institution (, PA, CAREER ORIENTATION TEACHER, urgent care, hospital, or usp...) When possible be specific @Patient was sent in by the [facility] Did you speak to anyone other than the patient for history (EMS, parent, family, police, friend...)? What history was obtained from this source @ -Spoke with paramedics, called for ИВАН, AMS, pt wears 5L O2 NC at baseline, became to altered for CPAP, so required assisted respirations with BVM, pulse ox was 60% on home O2, recently started on levoquin for PNA Did you review nursing and triage notes (agree or disagree)? Why? @ -I reviewed nursing and triage notes Were old charts reviewed (outside hosp., previous admission, EMS record, old EKG, old radiological studies, urgent care reports/EKG's, usp records)? Report findings @ -Medical records reviewed Differential Diagnosis (chest pain, altered mental status, abdominal pain women, abdominal pain men, vaginal bleeding, weakness, fever, dyspnea, syncope, headache, dizziness, GI bleed, back pain, seizure, CVA, palpatations, mental health, musculoskeletal)? @Differential Altered Mental Status: Hypoglycemia, DKA, hypercapnia, ETOH, overdose, CO poisoning, trauma, myxedema coma, HTN encephalopathy, infection, encephalitis, psychosis, intercranial hemorrhage, hepatic encephalopathy, meningitis, CVA, this is not meant to be an all-inclusive list Differential Dyspnea: Coronary syndrome, arrhythmia, tamponade, asthma, COPD, pulmonary embolism, pneumonia, pneumothorax, pulmonary effusion, anaphylaxis, diabetic ketoacidosis, flailed chest, pulmonary contusion, diaphragmatic rupture, anemia, neuromuscular, this is not meant to be an all-inclusive list. EKG interpreted by me (3pts min.). @ -As above X-rays interpreted by me (1pt min.). @Personally reviewed CXR- showed multifocal PNA, right pleural effusion, agree with radiologist interpretation CT interpreted by me (1pt min.). @Reviewed CT brain, I see no evidence of hemorrhage or mass effect Reviewed CT a chest, I see no evidence of pulmonary embolism, multifocal pneumonia noted Reviewed CT abdomen pelvis I see no evidence of bowel obstruction or other acute process agrees radiologist to potation U/S interpreted by me (1pt. min.). @ -None done What testing was considered but not performed or refused? (CT, X-rays, U/S, labs)? Why? @ -None What meds were considered but not given or refused? Why? @ -None Did you discuss the management of the patient with other professionals (professionals i.e. , PA, CAREER ORIENTATION TEACHER, lab, RT, psych nurse, social media director, lime sludge kiln operator, teacher, air crew officer, nurse outreach case manager)? Give summary @ -No Was smoking cessation discussed for >3mins.? @ -No Was critical care preformed (if so, how long)? @Yes, 60 minutes Were there social determinants of health that impacted care today? How? (Homelessness, low income, unemployed, alcoholism, drug addiction, transportation, low edu. Level, literacy, decrease access to med. care, correction, rehab)? @ -No Was there de-escalation of care discussed even if they declined (Discuss DNR or withdrawal of care, Hospice)? @ -No What co-morbidities impacted this encounter? (DM, HTN, Smoking, COPD, CAD, Cancer, CVA, ARF, Chemo, Hep., AIDS, mental health diagnosis, sleep apnea, morbid obesity)? @COPD, CHF, asthma, HTN Was patient admitted / discharged? Hospital course, mention meds given and route, prescriptions, significant lab abnormalities, going to OR and other pertinent info. @Admission- This is a 69 y/o female PMH as above presenting from [facility] for AMS and ИВАН. Pt seen and assessed on arrival to the ED. She is ill appearing, receiving assisted ventilations via BVM. Intermittenly opens eyes, pulse ox 91% with assisted respirations, BP stable. Patient weakly moves extremities initially , localized to pain. As she continues to receive assisted respirations she does become more alert, follows commands. At this point patient is transitioned over to BiPAP. Patient has overall wet breath sounds, rhonchi and crackles throughout all lung flores with scant wheezes in the apices. No lower extremity edema. Abdomen soft nontender. No focal neurologic deficits. Suspect sepsis secondary to, versus COPD exacerbation versus CHF, additional differential as noted above. Blood glucose checked on arrival as well, 22. Patient given 2 A of D50. After receiving D50 alertness continued to increase. Resting comfortably on BiPAP. Will obtain troponin, EKG, BNP, D- dimer, sepsis workup, administer Levaquin, stat portable chest x-ray. Due to crackles and rales on exam and concern for CHF and superimposed pneumonia, 80 mg IV Lasix administered. Additionally CT brain, and altered mental status workup will be obtained. ABG obtained shortly after arrival significant for hypercapnia, [id number], pH 7.30 consistent with respiratory acidosis, PO263, she will be continued on BiPAP and will recheck ABG. Sodium 128, GFR within normal limits. Lactic 0.6, LFTs slightly elevated AST/ALT 109/51, troponin undetectable, BNP 1250. Imaging consistent with multifocal pneumonia. On reassessment patient is much more awake, she is on BiPAP however is able to answer questions, respirations are u nlabored. Will repeat ABG to assess if patient can be removed from bipap. Updated pt to findings and plan for admission to which she was agreeable. ABG repeated after patient on BiPAP for approximately 2 to 3 hours, pCO2 80, PO2 63, oxygen saturation 92.5, for this reason patient's BiPAP settings to be changed to 16/8 from 14/7. Blood glucose was consistently above 100 however 4 AM was rechecked and was 44. Patient is currently on BiPAP so will remain NPO. She was given an amp of D50 and was started on D5 normal saline at 75 cc an hour. Case was discussed with STUART Ventura who kindly accepted pt for admission. Undiagnosed new problem with uncertain prognosis? @ -No Drug Therapy requiring intensive monitoring for toxicity (Heparin, Nitro, Insulin, Cardizem)? @ -No Were any procedures done? @ -No Diagnosis/symptom? Acute and chronic mixed hypercapneic and hypoxic respiratory failure, multifocal PNA, sepsis, acute metabolic encephalopathy, hypoglycemia Acute, or Chronic, or Acute on Chronic? acute, acute on chronic Uncomplicated (without systemic symptoms) or Complicated (systemic symptoms)? @complicated Side effects of treatment? @ -No Exacerbation, Progression, or Severe Exacerbation? exacerbation Poses a threat to life or bodily function? How? (Chest pain, [place], [place], pneumonia, PE, COPD, DKA, ARF, appy, cholecystitis, CVA, Diverticulitis, Homicidal, Suicidal, threat to staff... and all critical care pts) @ -yes - Lab Data Result diagrams: 01/24/25 00:29 01/24/25 00:29 Lab Results 01/24/25 01/24/25 01/24/25 Range/Units 00:22 00:25 00:29 WBC 22.79 H (4.50-10.00) 10*3/uL RBC 3.29 L (4.10-5.20) 10*6/uL Hgb 10.0 L (12.0-15.0) g/dL Hct 32.1 L (37.2-46.3) % MCV 97.6 H (80.0-97.0) fL MCH 30.4 (27.0-32.0) pg MCHC 31.2 L (32.0-37.0) g/dL Plt Count 389 (140-440) 10*3/uL MPV 9.1 L (9.5-12.2) fL Immature Gran % (Auto) 3.2 % Neutrophils % Not Reportable Neutrophils % (Manual) 66 % Band Neuts % (Manual) 12 % Lymphocytes % Not Reportable Lymphocytes % (Manual) 8 % Monocytes % Not Reportable Monocytes % (Manual) 11 % Eosinophils % Not Reportable Eosinophils % (Manual) 2 % Basophils % Not Reportable Metamyelocytes % 1 % Immature Gran # 0.73 H (0.00-0.04) 10*3/uL Neutrophils # Not Reportable Neutrophils # (Manual) 17.77 H (1.3-7.7) k/uL Lymphocytes # Not Reportable Lymphocytes # (Manual) 1.82 (1.0-4.8) k/uL Monocytes # Not Reportable Monocytes # (Manual) 2.51 H (0-1.0) k/uL Eosinophils # Not Reportable Eosinophils # (Manual) 0.46 (0-0.7) k/uL Basophils # Not Reportable Metamyelocytes # (Man) 0.23 H (0) k/uL Nucleated RBCs 0 (0-0) /100 WBC Manual Slide Review Performed PT (10.0-12.5) sec INR (<1.2) APTT (22.0-30.0) sec D-Dimer (<0.60) mg/L FEU Sample Site lrad ABG pH 7.30 L (7.35-7.45) ABG pCO2 81 H* (35-45) mmHg ABG pO2 63 L (83-108) mmHg ABG HCO3 39 H (21-25) mmol/L ABG Total CO2 42 H (19-24) mmol/L ABG O2 Saturation 92.1 L (94-97) % ABG Base Excess 10.5 mmol/L Duc Test Yes Hemoglobin 10.2 L (11.4-16.0) gm/dL FiO2 80 % Sodium (137-145) mmol/L Potassium (3.5-5.1) mmol/L Chloride (98-107) mmol/L Carbon Dioxide (22-30) mmol/L Anion Gap mmol/L BUN (7-17) mg/dL Creatinine (0.52-1.04) mg/dL Est GFR (CKD-EPI)AfAm (>60 ml/min/1.73 sqM) Est GFR (CKD-EPI)NonAf (>60 ml/min/1.73 sqM) Glucose (74-99) mg/dL POC Glucose (mg/dL) 22 L* (70-110) mg/dL POC Glu Life Skills Consultant ID Nacho Puente Plasma Lactic Acid Joel (0.7-2.0) mmol/L Calcium (8.4-10.2) mg/dL Magnesium (1.6-2.3) mg/dL Total Bilirubin (0.2-1.3) mg/dL AST (14-36) U/L ALT (4-34) U/L Alkaline Phosphatase (38-126) U/L Troponin I (0.000-0.034) ng/mL NT-Pro-B Natriuret Pep pg/mL Total Protein (6.3-8.2) g/dL Albumin (3.5-5.0) g/dL Urine Color Urine Appearance (Clear) Urine pH (5.0-8.0) Ur Specific [place] (1.001-1.035) Urine Protein (Negative) Urine Glucose (UA) (Negative) Urine Ketones (Negative) Urine Blood (Negative) Urine Nitrite (Negative) Urine Bilirubin (Negative) Urine Urobilinogen (<2.0) mg/dL Ur Leukocyte Esterase (Negative) 01/24/25 01/24/25 01/24/25 Range/Units 00:29 00:29 00:29 WBC (4.50-10.00) 10*3/uL RBC (4.10-5.20) 10*6/uL Hgb (12.0-15.0) g/dL Hct (37.2-46.3) % MCV (80.0-97.0) fL MCH (27.0-32.0) pg MCHC (32.0-37.0) g/dL Plt Count (140-440) 10*3/uL MPV (9.5-12.2) fL Immature Gran % (Auto) % Neutrophils % Neutrophils % (Manual) % Band Neuts % (Manual) % Lymphocytes % Lymphocytes % (Manual) % Monocytes % Monocytes % (Manual) % Eosinophils % Eosinophils % (Manual) % Basophils % Metamyelocytes % % Immature Gran # (0.00-0.04) 10*3/uL Neutrophils # Neutrophils # (Manual) (1.3-7.7) k/uL Lymphocytes # Lymphocytes # (Manual) (1.0-4.8) k/uL Monocytes # Monocytes # (Manual) (0-1.0) k/uL Eosinophils # Eosinophils # (Manual) (0-0.7) k/uL Basophils # Metamyelocytes # (Man) (0) k/uL Nucleated RBCs (0-0) /100 WBC Manual Slide Review PT 9.6 L (10.0-12.5) sec INR 0.8 (<1.2) APTT 26.4 (22.0-30.0) sec D-Dimer 0.73 H (<0.60) mg/L FEU Sample Site ABG pH (7.35-7.45) ABG pCO2 (35-45) mmHg ABG pO2 (83-108) mmHg ABG HCO3 (21-25) mmol/L ABG Total CO2 (19-24) mmol/L ABG O2 Saturation (94-97) % ABG Base Excess mmol/L Duc Test Hemoglobin (11.4-16.0) gm/dL FiO2 % Sodium 128 L (137-145) mmol/L Potassium 5.1 (3.5-5.1) mmol/L Chloride 87 L (98-107) mmol/L Carbon Dioxide 36 H (22-30) mmol/L Anion Gap 5 mmol/L BUN 31 H (7-17) mg/dL Creatinine 0.44 L (0.52-1.04) mg/dL Est GFR (CKD-EPI)AfAm >90 (>60 ml/min/1.73 sqM) Est GFR (CKD-EPI)NonAf >90 (>60 ml/min/1.73 sqM) Glucose <20 L* (74-99) mg/dL POC Glucose (mg/dL) (70-110) mg/dL POC Glu Life Skills Consultant ID Plasma Lactic Acid Joel 0.6 L (0.7-2.0) mmol/L Calcium 9.8 (8.4-10.2) mg/dL Magnesium 1.8 (1.6-2.3) mg/dL Total Bilirubin 0.4 (0.2-1.3) mg/dL AST 109 H (14-36) U/L ALT 51 H (4-34) U/L Alkaline Phosphatase 111 (38-126) U/L Troponin I (0.000-0.034) ng/mL NT-Pro-B Natriuret Pep 1250 pg/mL Total Protein 5.6 L (6.3-8.2) g/dL Albumin 3.4 L (3.5-5.0) g/dL Urine Color Urine Appearance (Clear) Urine pH (5.0-8.0) Ur Specific [place] (1.001-1.035) Urine Protein (Negative) Urine Glucose (UA) (Negative) Urine Ketones (Negative) Urine Blood (Negative) Urine Nitrite (Negative) Urine Bilirubin (Negative) Urine Urobilinogen (<2.0) mg/dL Ur Leukocyte Esterase (Negative) 01/24/25 01/24/25 01/24/25 Range/Units 00:29 00:44 01:04 WBC (4.50-10.00) 10*3/uL RBC (4.10-5.20) 10*6/uL Hgb (12.0-15.0) g/dL Hct (37.2-46.3) % MCV (80.0-97.0) fL MCH (27.0-32.0) pg MCHC (32.0-37.0) g/dL Plt Count (140-440) 10*3/uL MPV (9.5-12.2) fL Immature Gran % (Auto) % Neutrophils % Neutrophils % (Manual) % Band Neuts % (Manual) % Lymphocytes % Lymphocytes % (Manual) % Monocytes % Monocytes % (Manual) % Eosinophils % Eosinophils % (Manual) % Basophils % Metamyelocytes % % Immature Gran # (0.00-0.04) 10*3/uL Neutrophils # Neutrophils # (Manual) (1.3-7.7) k/uL Lymphocytes # Lymphocytes # (Manual) (1.0-4.8) k/uL Monocytes # Monocytes # (Manual) (0-1.0) k/uL Eosinophils # Eosinophils # (Manual) (0-0.7) k/uL Basophils # Metamyelocytes # (Man) (0) k/uL Nucleated RBCs (0-0) /100 WBC Manual Slide Review PT (10.0-12.5) sec INR (<1.2) APTT (22.0-30.0) sec D-Dimer (<0.60) mg/L FEU Sample Site ABG pH (7.35-7.45) ABG pCO2 (35-45) mmHg ABG pO2 (83-108) mmHg ABG HCO3 (21-25) mmol/L ABG Total CO2 (19-24) mmol/L ABG O2 Saturation (94-97) % ABG Base Excess mmol/L Duc Test Hemoglobin (11.4-16.0) gm/dL FiO2 % Sodium (137-145) mmol/L Potassium (3.5-5.1) mmol/L Chloride (98-107) mmol/L Carbon Dioxide (22-30) mmol/L Anion Gap mmol/L BUN (7-17) mg/dL Creatinine (0.52-1.04) mg/dL Est GFR (CKD-EPI)AfAm (>60 ml/min/1.73 sqM) Est GFR (CKD-EPI)NonAf (>60 ml/min/1.73 sqM) Glucose (74-99) mg/dL POC Glucose (mg/dL) 225 H (70-110) mg/dL POC Glu Life Skills Consultant ID Nacho Puente Plasma Lactic Acid Joel (0.7-2.0) mmol/L Calcium (8.4-10.2) mg/dL Magnesium (1.6-2.3) mg/dL Total Bilirubin (0.2-1.3) mg/dL AST (14-36) U/L ALT (4-34) U/L Alkaline Phosphatase (38-126) U/L Troponin I <0.012 (0.000-0.034) ng/mL NT-Pro-B Natriuret Pep pg/mL Total Protein (6.3-8.2) g/dL Albumin (3.5-5.0) g/dL Urine Color Colorless Urine Appearance Clear (Clear) Urine pH 5.0 (5.0-8.0) Ur Specific [place] 1.014 (1.001-1.035) Urine Protein Negative (Negative) Urine Glucose (UA) 1+ H (Negative) Urine Ketones Negative (Negative) Urine Blood Negative (Negative) Urine Nitrite Negative (Negative) Urine Bilirubin Negative (Negative) Urine Urobilinogen <2.0 (<2.0) mg/dL Ur Leukocyte Esterase Negative (Negative) 01/24/25 01/24/25 01/24/25 Range/Units 01:10 01:34 02:11 WBC (4.50-10.00) 10*3/uL RBC (4.10-5.20) 10*6/uL Hgb (12.0-15.0) g/dL Hct (37.2-46.3) % MCV (80.0-97.0) fL MCH (27.0-32.0) pg MCHC (32.0-37.0) g/dL Plt Count (140-440) 10*3/uL MPV (9.5-12.2) fL Immature Gran % (Auto) % Neutrophils % Neutrophils % (Manual) % Band Neuts % (Manual) % Lymphocytes % Lymphocytes % (Manual) % Monocytes % Monocytes % (Manual) % Eosinophils % Eosinophils % (Manual) % Basophils % Metamyelocytes % % Immature Gran # (0.00-0.04) 10*3/uL Neutrophils # Neutrophils # (Manual) (1.3-7.7) k/uL Lymphocytes # Lymphocytes # (Manual) (1.0-4.8) k/uL Monocytes # Monocytes # (Manual) (0-1.0) k/uL Eosinophils # Eosinophils # (Manual) (0-0.7) k/uL Basophils # Metamyelocytes # (Man) (0) k/uL Nucleated RBCs (0-0) /100 WBC Manual Slide Review PT (10.0-12.5) sec INR (<1.2) APTT (22.0-30.0) sec D-Dimer (<0.60) mg/L FEU Sample Site ABG pH (7.35-7.45) ABG pCO2 (35-45) mmHg ABG pO2 (83-108) mmHg ABG HCO3 (21-25) mmol/L ABG Total CO2 (19-24) mmol/L ABG O2 Saturation (94-97) % ABG Base Excess mmol/L Duc Test Hemoglobin (11.4-16.0) gm/dL FiO2 % Sodium (137-145) mmol/L Potassium (3.5-5.1) mmol/L Chloride (98-107) mmol/L Carbon Dioxide (22-30) mmol/L Anion Gap mmol/L BUN (7-17) mg/dL Creatinine (0.52-1.04) mg/dL Est GFR (CKD-EPI)AfAm (>60 ml/min/1.73 sqM) Est GFR (CKD-EPI)NonAf (>60 ml/min/1.73 sqM) Glucose (74-99) mg/dL POC Glucose (mg/dL) 171 H 155 H 135 H (70-110) mg/dL POC Glu Life Skills Consultant ID Gaganlucy Yehher Nacho Griffith Cindi Plasma Lactic Acid Joel (0.7-2.0) mmol/L Calcium (8.4-10.2) mg/dL Magnesium (1.6-2.3) mg/dL Total Bilirubin (0.2-1.3) mg/dL AST (14-36) U/L ALT (4-34) U/L Alkaline Phosphatase (38-126) U/L Troponin I (0.000-0.034) ng/mL NT-Pro-B Natriuret Pep pg/mL Total Protein (6.3-8.2) g/dL Albumin (3.5-5.0) g/dL Urine Color Urine Appearance (Clear) Urine pH (5.0-8.0) Ur Specific [place] (1.001-1.035) Urine Protein (Negative) Urine Glucose (UA) (Negative) Urine Ketones (Negative) Urine Blood (Negative) Urine Nitrite (Negative) Urine Bilirubin (Negative) Urine Urobilinogen (<2.0) mg/dL Ur Leukocyte Esterase (Negative) 01/24/25 01/24/25 01/24/25 Range/Units 03:29 04:00 04:02 WBC (4.50-10.00) 10*3/uL RBC (4.10-5.20) 10*6/uL Hgb (12.0-15.0) g/dL Hct (37.2-46.3) % MCV (80.0-97.0) fL MCH (27.0-32.0) pg MCHC (32.0-37.0) g/dL Plt Count (140-440) 10*3/uL MPV (9.5-12.2) fL Immature Gran % (Auto) % Neutrophils % Neutrophils % (Manual) % Band Neuts % (Manual) % Lymphocytes % Lymphocytes % (Manual) % Monocytes % Monocytes % (Manual) % Eosinophils % Eosinophils % (Manual) % Basophils % Metamyelocytes % % Immature Gran # (0.00-0.04) 10*3/uL Neutrophils # Neutrophils # (Manual) (1.3-7.7) k/uL Lymphocytes # Lymphocytes # (Manual) (1.0-4.8) k/uL Monocytes # Monocytes # (Manual) (0-1.0) k/uL Eosinophils # Eosinophils # (Manual) (0-0.7) k/uL Basophils # Metamyelocytes # (Man) (0) k/uL Nucleated RBCs (0-0) /100 WBC Manual Slide Review PT (10.0-12.5) sec INR (<1.2) APTT (22.0-30.0) sec D-Dimer (<0.60) mg/L FEU Sample Site rrad ABG pH 7.31 L (7.35-7.45) ABG pCO2 80 H* (35-45) mmHg ABG pO2 63 L (83-108) mmHg ABG HCO3 41 H* (21-25) mmol/L ABG Total CO2 43 H (19-24) mmol/L ABG O2 Saturation 92.5 L (94-97) % ABG Base Excess 11.9 mmol/L Duc Test Yes Hemoglobin 10.1 L (11.4-16.0) gm/dL FiO2 70 % Sodium (137-145) mmol/L Potassium (3.5-5.1) mmol/L Chloride (98-107) mmol/L Carbon Dioxide (22-30) mmol/L Anion Gap mmol/L BUN (7-17) mg/dL Creatinine (0.52-1.04) mg/dL Est GFR (CKD-EPI)AfAm (>60 ml/min/1.73 sqM) Est GFR (CKD-EPI)NonAf (>60 ml/min/1.73 sqM) Glucose (74-99) mg/dL POC Glucose (mg/dL) 44 L* 44 L* (70-110) mg/dL POC Glu Life Skills Consultant ID Nacho Puente Griffith Cindi Plasma Lactic Acid Joel (0.7-2.0) mmol/L Calcium (8.4-10.2) mg/dL Magnesium (1.6-2.3) mg/dL Total Bilirubin (0.2-1.3) mg/dL AST (14-36) U/L ALT (4-34) U/L Alkaline Phosphatase (38-126) U/L Troponin I (0.000-0.034) ng/mL NT-Pro-B Natriuret Pep pg/mL Total Protein (6.3-8.2) g/dL Albumin (3.5-5.0) g/dL Urine Color Urine Appearance (Clear) Urine pH (5.0-8.0) Ur Specific [place] (1.001-1.035) Urine Protein (Negative) Urine Glucose (UA) (Negative) Urine Ketones (Negative) Urine Blood (Negative) Urine Nitrite (Negative) Urine Bilirubin (Negative) Urine Urobilinogen (<2.0) mg/dL Ur Leukocyte Esterase (Negative) 01/24/25 Range/Units 04:23 WBC (4.50-10.00) 10*3/uL RBC (4.10-5.20) 10*6/uL Hgb (12.0-15.0) g/dL Hct (37.2-46.3) % MCV (80.0-97.0) fL MCH (27.0-32.0) pg MCHC (32.0-37.0) g/dL Plt Count (140-440) 10*3/uL MPV (9.5-12.2) fL Immature Gran % (Auto) % Neutrophils % Neutrophils % (Manual) % Band Neuts % (Manual) % Lymphocytes % Lymphocytes % (Manual) % Monocytes % Monocytes % (Manual) % Eosinophils % Eosinophils % (Manual) % Basophils % Metamyelocytes % % Immature Gran # (0.00-0.04) 10*3/uL Neutrophils # Neutrophils # (Manual) (1.3-7.7) k/uL Lymphocytes # Lymphocytes # (Manual) (1.0-4.8) k/uL Monocytes # Monocytes # (Manual) (0-1.0) k/uL Eosinophils # Eosinophils # (Manual) (0-0.7) k/uL Basophils # Metamyelocytes # (Man) (0) k/uL Nucleated RBCs (0-0) /100 WBC Manual Slide Review PT (10.0-12.5) sec INR (<1.2) APTT (22.0-30.0) sec D-Dimer (<0.60) mg/L FEU Sample Site ABG pH (7.35-7.45) ABG pCO2 (35-45) mmHg ABG pO2 (83-108) mmHg ABG HCO3 (21-25) mmol/L ABG Total CO2 (19-24) mmol/L ABG O2 Saturation (94-97) % ABG Base Excess mmol/L Duc Test Hemoglobin (11.4-16.0) gm/dL FiO2 % Sodium (137-145) mmol/L Potassium (3.5-5.1) mmol/L Chloride (98-107) mmol/L Carbon Dioxide (22-30) mmol/L Anion Gap mmol/L BUN (7-17) mg/dL Creatinine (0.52-1.04) mg/dL Est GFR (CKD-EPI)AfAm (>60 ml/min/1.73 sqM) Est GFR (CKD-EPI)NonAf (>60 ml/min/1.73 sqM) Glucose (74-99) mg/dL POC Glucose (mg/dL) 86 (70-110) mg/dL POC Glu Life Skills Consultant ID Nacho Puente Plasma Lactic Acid Joel (0.7-2.0) mmol/L Calcium (8.4-10.2) mg/dL Magnesium (1.6-2.3) mg/dL Total Bilirubin (0.2-1.3) mg/dL AST (14-36) U/L ALT (4-34) U/L Alkaline Phosphatase (38-126) U/L Troponin I (0.000-0.034) ng/mL NT-Pro-B Natriuret Pep pg/mL Total Protein (6.3-8.2) g/dL Albumin (3.5-5.0) g/dL Urine Color Urine Appearance (Clear) Urine pH (5.0-8.0) Ur Specific [place] (1.001-1.035) Urine Protein (Negative) Urine Glucose (UA) (Negative) Urine Ketones (Negative) Urine Blood (Negative) Urine Nitrite (Negative) Urine Bilirubin (Negative) Urine Urobilinogen (<2.0) mg/dL Ur Leukocyte Esterase (Negative) Disposition Clinical Impression: Acute on chronic respiratory failure with hypoxia and hypercapnia, Sepsis, Multifocal pneumonia, Hypoglycemia, Acute metabolic encephalopathy, Hyponatremia Disposition: ADMITTED IP TO THIS HOSP Condition: Stable Is patient prescribed a controlled substance at d/c from ED?: No
[2025-01-24 03:10] LABS: ABG PH 7.31 (7.35-7.45); ABG PO2 63 mmHg (83-108); ABG TCO2 43 mmol/L (19-24); Allen Test Performed? Yes
--- NOTE | 2025-01-24 03:23 | CT ---
EXAM: CT Angiography Chest With Intravenous Contrast CLINICAL HISTORY: ITS.REASON CT Reason: elevated dimer ИВАН TECHNIQUE: Axial computed tomographic angiography images of the chest with intravenous contrast. CTDI is 32.5 mGy and DLP is 1304 mGy-cm. This CT exam was performed using one or more of the following dose reduction techniques: automated exposure control, adjustment of the mA and/or kV according to patient size, and/or use of iterative reconstruction technique. MIP reconstructed images were created and reviewed. COMPARISON: No relevant prior studies available. FINDINGS: Pulmonary arteries: Unremarkable. No pulmonary embolism. Aorta: No acute findings. No thoracic aortic aneurysm. Lungs: Airspace consolidations at the lung bases, consistent with multilobar pneumonia. Trace right parapneumonic effusion. Pleural space: Unremarkable. No significant effusion. No pneumothorax. Heart: Cardiomegaly. No significant pericardial effusion. No evidence of RV dysfunction. Bones/joints: No acute fracture. No dislocation. Soft tissues: Unremarkable. Lymph nodes: Unremarkable. No enlarged lymph nodes. Liver: Hepatic steatosis. IMPRESSION: 1. No pulmonary embolism. 2. Airspace consolidations at the lung bases, consistent with multilobar pneumonia. Trace right parapneumonic effusion.
[2025-01-24 03:34] LABS: ABG HCO3 41 mmol/L (21-25); ABG PCO2 80 mmHg (35-45)
[2025-01-24 04:01] LABS: Glucose,Whole Blood 44 mg/dL (70-110)
[2025-01-24 04:04] LABS: Glucose,Whole Blood 44 mg/dL (70-110)
[2025-01-24] MEDS: DEXTROSE 5%-0.9% NACL 1,000 ML IV SCH (04:17)
[2025-01-24 04:25] LABS: Glucose,Whole Blood 86 mg/dL (70-110)
--- NOTE | 2025-01-24 04:28 | CT ---
EXAM: CT Abdomen and Pelvis With Intravenous Contrast CLINICAL HISTORY: ITS.REASON CT Reason: SOB TECHNIQUE: Axial computed tomography images of the abdomen and pelvis with intravenous contrast. CTDI is 32.5 mGy and DLP is 1304 mGy-cm. This CT exam was performed using one or more of the following dose reduction techniques: automated exposure control, adjustment of the mA and/or kV according to patient size, and/or use of iterative reconstruction technique. COMPARISON: No relevant prior studies available. FINDINGS: Lung bases: Airspace consolidations at the lung bases, consistent with multilobar pneumonia. Small right parapneumonic effusion. ABDOMEN: Liver: Unremarkable. No mass. Gallbladder and bile ducts: Cholecystectomy. No ductal dilation. Pancreas: Unremarkable. No mass. No ductal dilation. Spleen: Unremarkable. No splenomegaly. Adrenals: Unremarkable. No mass. Kidneys and ureters: Unremarkable. No solid mass. No hydronephrosis. Stomach and bowel: Moderate fecal retention, correlate for constipation. No obstruction. No mucosal thickening. PELVIS: Appendix: No findings to suggest acute appendicitis. Bladder: Unremarkable. No mass. Reproductive: Unremarkable as visualized. ABDOMEN and PELVIS: Intraperitoneal space: Unremarkable. No free air. No significant fluid collection. Bones/joints: Degenerative changes of the spine. No acute fracture. No dislocation. Soft tissues: Unremarkable. Vasculature: Atherosclerotic changes of the aorta. No abdominal aortic aneurysm. Lymph nodes: Unremarkable. No enlarged lymph nodes. IMPRESSION: 1. Airspace consolidations at the lung bases, consistent with multilobar pneumonia. Small right parapneumonic effusion. 2. Cholecystectomy. 3. Moderate fecal retention, correlate for constipation.
[2025-01-24] MEDS ORDERED: PNEUMONIA PROTOCOL UTILIZED 1 EACH MISC PO PRN (04:31)
[2025-01-24] MEDS ORDERED: ACETAMINOPHEN TAB 325 MG TAB PO PRN (04:31)
[2025-01-24 04:56] LABS: Glucose,Whole Blood 82 mg/dL (70-110)
[2025-01-24 05:54] LABS: Glucose,Whole Blood 58 mg/dL (70-110)
[2025-01-24 06:21] LABS: Glucose,Whole Blood 58 mg/dL (70-110)
[2025-01-24] MEDS: DEXTROSE 10% IN WATER 500 ML in EMPTY BAG 1 BAG IV SCH (06:34)
--- NOTE | 2025-01-24 06:35 | P.CNPUL ---
History of Present Illness Consult date: 01/24/25 Requesting physician: Ginna Burger Reason for consult: other (Respiratory failure) Chief complaint: Altered mental status History of present illness: Patient is a 69-year-old female with past medical history significant for COPD, chronic hypoxemic respiratory failure, chronic ongoing tobacco use, heart failure, pulmonary embolism, diabetes mellitus type II, hypothyroidism, gastric bypass. Patient recently discharged from hospital on 01/08/2025 to [facility] for rehab. She was admitted with acute COPD exacerbation. Sputum culture was positive for multidrug-resistant Pseudomonas aeruginosa. She was treated with a 10-day course of Zerbaxa. Repeat sputum culture showing normal respiratory farooq. Also, previously MRSA was identified in the sputum back on Nov, 2024. Early this morning, patient brought in by EMS from the [facility]. She was noted to be confused at the outside facility. Also, having difficulty breathing. Pulse ox is reading low, around 60%, on 5 L/min nasal cannula. Patient was severel hypoglycemic on arrival with a blood glucose less than 20, and received multiple amps of D50 W and continued on a D5/0.9 saline infusion at 75 mm/h. She was on a sulfonylurea at the outside facility. An ABG was drawn consistent with acute on chronic hypercapnic and hypoxemic respiratory failure. She was placed on BiPAP in the ED. Brain CT did not show any acute intracranial hemorrhage, midline shift, or mass effect. Chest CT angiogram did not show any pulmonary embolism. Appears to be increased bibasilar airspace consolidations, consistent with multi lobar pneumonia and trace parapneumonic effusion. CBC with a WBC count of 22.79, hemoglobin 10, platelets 389. CMP: Sodium 128, potassium 5.1, chloride 87, serum bicarb 36, BUN 31, creatinine 0.44, blood gluc ose less than 20. LFTs mildly elevated. Lactic acid not elevated. Troponin less than 0.012. NT-proBNP 1250. Urinalysis unremarkable for infection. Most recent blood glucose 82. Currently being evaluated emergency department. She is on BiPAP with settings 16/6 and FiO2 70%. Nonlabored breathing. Achieving good tidal volumes. She is alert and oriented x 3. Does not call recall immediate e vents prior to hospitalization. No specific complaints at this time other than she would like a drink of water. Admits to occasional cough with phlegm. Denies any hemoptysis, pleurisy. No fevers or chills. Previously started on Levaquin. Denies any nausea, vomiting, diarrhea, abdominal pain. Appetite has been good. She does have a mild tremor, staff nurse is going to check her blood sugar w hich has been repetitively low. Recently started on D5W with 0.9 at 75 mL/h Review of Systems REVIEW OF SYSTEMS: CONSTITUTIONAL: Denies any recent significant weight loss or weight gain. EYES: Denies change in vision. EARS, NOSE, MOUTH, THROAT: Denies rhinorrhea, sinus pressure/pain, sore throat, dysphagia, odynophagia CARDIOVASCULAR: Denies chest pain, palpitations or syncopal episodes. RESPIRATORY: See HPI GASTROINTESTINAL: Denies change in appetite, abdominal pain, nausea and vomiting, or diarrhea GENITOURINARY: Denies hematuria, denies infections. MUSKULOSKELETAL: Denies pain, denies swelling. INTEGUMENTARY: Denies rash, denies eczema. NEUROLOGICAL: Denies recent memory loss, no recent seizure activity. PSYCHIATRIC: Denies anxiety, denies depression. HEMATOLOGIC/LYMPHATIC: Denies anemia, denies enlarged lymph node Past Medical History Past Medical History: Asthma, Heart Failure, COPD, Fibromyalgia, GERD/Reflux, Hypertension, Osteoarthritis (OA), Pneumonia, Pulmonary Embolus (PE), Skin Disorder, Thyroid Disorder Additional Past Medical History / Comment(s): Spinal Stenosis, Cervical disc disease/stenosis, scoliosis, numbness/tingling L side of face/neck, hx of L hemidiaphragmatic elevation-possibly genetic, recently bronchitis and past bronchitis, electrolyte problem/kidney function being affected, hx of pulmonary emboli, past bilateral lower extremity cellulitis, edema lower extremities, IBS, hemorrhoids, benign colon polyps, sinus problems, UTIs, bacteremia/sepsis, cardiac murmur, past L ankle and L wrist fractures. History of Any Multi-Drug Resistant Organisms: MRSA, Other MDRO Date of last positivie culture/infection: 12/19/24-Other MDRO; 11/27/24-MRSA MDRO Source:: Other MDRO-sputum; MRSA-sputum, knee Past Surgical History: Bariatric Surgery, Section, Cholecystectomy, Hysterectomy, Tonsillectomy Additional Past Surgical History / Comment(s): EGD, colonoscopies, gastric bypass, surgery for deviated septum, left cataract removal (having laser procedure on that eye 11/24/23) Past Anesthesia/Blood Transfusion Reactions: Previous Problems w/ Anesthesia Additional Past Anesthesia/Blood Transfusion Reaction / Comment(s): itching after hysterectomy, some kind of breathing problem after gastric bypass-not sure what happened Past Psychological History: Anxiety, Bipolar, Depression, Panic Disorder Smoking Status: Current every day smoker Past Alcohol Use History: None Reported Past Drug Use History: Marijuana - Past Family History Mother Family Medical History: Congestive Heart Failure (CHF), Hypertension Father History Unknown: Yes Additional Family Medical History / Comment(s): Father at the age of 45 yrs d/t having had rheumatic fever as a child and heart valve disease. Medications and Allergies Home Medications Medication Instructions Recorded Confirmed Type Montelukast [Singulair] 10 mg PO HS 12/17/13 12/28/24 History Levothyroxine Sodium [Synthroid] 150 mcg PO DAILY 03/29/20 12/28/24 History Famotidine [Pepcid] 20 mg PO BID 09/03/21 12/28/24 History Tamsulosin [Flomax] 0.4 mg PO DAILY 10/26/21 12/28/24 History Ipratropium-Albuterol Nebulize 3 ml INHALATION RT-QID 11/13/22 12/28/24 History [Duoneb 0.5 mg-3 mg/3 ml Soln] Albuterol Inhaler [Ventolin Hfa 2 puff INHALATION RT-QID PRN #1 11/17/22 12/28/24 Rx Inhaler] each lamoTRIgine [LaMICtal] 100 mg PO BID 03/18/24 12/28/24 History Metoprolol Tartrate [Lopressor] 25 mg PO BID 05/16/24 12/28/24 History Divalproex ER [Depakote ER] 250 mg PO BID #60 tab 05/26/24 12/28/24 Rx Gabapentin 300 mg PO TID 06/01/24 12/28/24 History busPIRone HCL [Buspar] 30 mg PO BID 06/09/24 12/28/24 History Fluticasone/Umeclidin/Vilanter 1 puff INHALATION RT-DAILY 10/17/24 12/28/24 History [Trelegy Ellipta 200-62.5-25] OLANZapine 15 mg PO HS 10/17/24 12/28/24 History Venlafaxine HCl [Effexor XR] 150 mg PO DAILY 10/17/24 12/28/24 History amLODIPine [Norvasc] 5 mg PO BID 30 Days #60 tab 10/21/24 12/28/24 Rx lisinopriL [Zestril] 10 mg PO DAILY 30 Days #30 tab 10/21/24 12/28/24 Rx Nitroglycerin Sl Tabs [Nitrostat] 0.4 mg SUBLINGUAL Q5M PRN #20 tab 11/30/24 12/28/24 Rx Furosemide [Lasix] 20 mg PO DAILY 12/11/24 12/28/24 History guaiFENesin [Mucinex] 600 mg PO BID 12/24/24 12/28/24 History Ipratropium-Albuterol Nebulize 3 ml INHALATION RT-Q4H PRN each 12/26/24 12/28/24 Rx [Duoneb 0.5 mg-3 mg/3 ml Soln] ALPRAZolam [Xanax] 0.25 mg PO BID PRN 5 Days #10 tab 01/08/25 Rx Budesonide-Formot 160-4.5 Mcg 2 puff INHALATION RT-BID each 01/08/25 Rx [Symbicort 160-4.5 Mcg Inhaler] Docusate [Colace] 100 mg PO DAILY cap 01/08/25 Rx HYDROcodone/APAP 5-325MG [Balko 1 each PO Q8H PRN #4 tab 01/08/25 Rx 5-325] Heparin Sodium,Porcine (1 ml) 5,000 unit SQ Q12HR each 01/08/25 Rx [Heparin Sodium] Nicotine 14Mg/24Hr Patch [Habitrol] 1 patch TRANSDERM DAILY patch 01/08/25 Rx Nystatin 100,000 Unit/gm Powd 1 applic TOPICAL BID PRN each 01/08/25 Rx [Mycostatin Powder] bisacodyL [Dulcolax] 10 mg PO DAILY tab 01/08/25 Rx clonazePAM [KlonoPIN ODT] 0.25 mg PO HS #4 tab 01/08/25 Rx polyethylene glycoL 3350 [Miralax] 17 gm PO HS packet 01/08/25 Rx Allergies Allergy/AdvReac Type Severity Reaction Status Date / Time codeine Allergy Unknown Verified 01/24/25 00:32 Childhood Penicillins Allergy Rash/Hives Verified 01/24/25 00:32 Sulfa (Sulfonamide Allergy Rash/Hives Verified 01/24/25 00:32 Antibiotics) Physical Exam Vitals: Vital Signs Temp Pulse Resp BP Pulse Ox FiO2 01/24/25 04:28 91 17 121/71 98 01/24/25 03:36 70 01/24/25 02:20 77 16 130/60 96 01/24/25 01:28 71 14 01/24/25 00:54 76 20 01/24/25 00:38 81 17 80 01/24/25 00:37 80 01/24/25 00:33 86 18 107/56 94 L 01/24/25 00:11 98 F 88 16 130/77 88 L Intake and Output 01/23/25 01/23/25 01/24/25 14:59 22:59 06:59 Output Total 1010 Balance -1010 Output: Urine 1010 Uretheral (Husain) 1010 Other: Weight 86.183 kg GENERAL EXAM: Alert, 69-year-old obese female, mild tremor, comfortable in no apparent distress. HEAD: Normocephalic and atraumatic EYES: Normal reaction of pupils, equal size. NOSE: Clear with pink turbinates. THROAT: No erythema or exudates. NECK: No masses, no JVD. CHEST: No chest wall deformity. LUNGS: Equal air entry with diminished bibasilar lung sounds. No wheezes, rhonchi, crackles. On BiPAP, nonlabored breathing, achieving adequate tidal volumes CVS: S1 and S2 normal with no audible murmur, regular rhythm. No extra heart sounds ABDOMEN: No hepatosplenomegaly, active bowel sounds, no guarding or rigidity. SPINE: No scoliosis or deformity SKIN: No rashes CENTRAL NERVOUS SYSTEM: No focal deficits, tone is normal in all 4 extremities. EXTREMITIES: There is no peripheral edema, clubbing, or cyanosis. Peripheral pulses are intact. Results - Laboratory Findings CBC and BMP: 01/24/25 00:29 01/24/25 00:29 ABG ABG pH 7.31 (7.35-7.45) L 01/24/25 03:29 ABG pCO2 80 mmHg (35-45) H* 01/24/25 03:29 ABG pO2 63 mmHg (83-108) L 01/24/25 03:29 ABG O2 Saturation 92.5 % (94-97) L 01/24/25 03:29 PT/INR, D-dimer PT 9.6 sec (10.0-12.5) L 01/24/25 00:29 INR 0.8 (<1.2) 01/24/25 00:29 D-Dimer 0.73 mg/L FEU (<0.60) H 01/24/25 00:29 Abnormal lab findings: Abnormal Labs 01/24/25 01/24/25 01/24/25 00:22 00:25 00:29 WBC 22.79 H RBC 3.29 L Hgb 10.0 L Hct 32.1 L MCV 97.6 H MCHC 31.2 L MPV 9.1 L Immature Gran # 0.73 H Neutrophils # (Manual) 17.77 H Monocytes # (Manual) 2.51 H Metamyelocytes # (Man) 0.23 H PT D-Dimer ABG pH 7.30 L ABG pCO2 81 H* ABG pO2 63 L ABG HCO3 39 H ABG Total CO2 42 H ABG O2 Saturation 92.1 L Hemoglobin 10.2 L Sodium Chloride Carbon Dioxide BUN Creatinine Glucose POC Glucose (mg/dL) 22 L* Plasma Lactic Acid Joel AST ALT Total Protein Albumin Urine Glucose (UA) 01/24/25 01/24/25 01/24/25 00:29 00:29 00:29 WBC RBC Hgb Hct MCV MCHC MPV Immature Gran # Neutrophils # (Manual) Monocytes # (Manual) Metamyelocytes # (Man) PT 9.6 L D-Dimer 0.73 H ABG pH ABG pCO2 ABG pO2 ABG HCO3 ABG Total CO2 ABG O2 Saturation Hemoglobin Sodium 128 L Chloride 87 L Carbon Dioxide 36 H BUN 31 H Creatinine 0.44 L Glucose <20 L* POC Glucose (mg/dL) Plasma Lactic Acid Joel 0.6 L AST 109 H ALT 51 H Total Protein 5.6 L Albumin 3.4 L Urine Glucose (UA) 01/24/25 01/24/25 01/24/25 00:44 01:04 01:10 WBC RBC Hgb Hct MCV MCHC MPV Immature Gran # Neutrophils # (Manual) Monocytes # (Manual) Metamyelocytes # (Man) PT D-Dimer ABG pH ABG pCO2 ABG pO2 ABG HCO3 ABG Total CO2 ABG O2 Saturation Hemoglobin Sodium Chloride Carbon Dioxide BUN Creatinine Glucose POC Glucose (mg/dL) 225 H 171 H Plasma Lactic Acid Joel AST ALT Total Protein Albumin Urine Glucose (UA) 1+ H 01/24/25 01/24/25 01/24/25 01:34 02:11 03:29 WBC RBC Hgb Hct MCV MCHC MPV Immature Gran # Neutrophils # (Manual) Monocytes # (Manual) Metamyelocytes # (Man) PT D-Dimer ABG pH 7.31 L ABG pCO2 80 H* ABG pO2 63 L ABG HCO3 41 H* ABG Total CO2 43 H ABG O2 Saturation 92.5 L Hemoglobin 10.1 L Sodium Chloride Carbon Dioxide BUN Creatinine Glucose POC Glucose (mg/dL) 155 H 135 H Plasma Lactic Acid Joel AST ALT Total Protein Albumin Urine Glucose (UA) 01/24/25 01/24/25 04:00 04:02 WBC RBC Hgb Hct MCV MCHC MPV Immature Gran # Neutrophils # (Manual) Monocytes # (Manual) Metamyelocytes # (Man) PT D-Dimer ABG pH ABG pCO2 ABG pO2 ABG HCO3 ABG Total CO2 ABG O2 Saturation Hemoglobin Sodium Chloride Carbon Dioxide BUN Creatinine Glucose POC Glucose (mg/dL) 44 L* 44 L* Plasma Lactic Acid Joel AST ALT Total Protein Albumin Urine Glucose (UA) - Diagnostic Findings Chest x-ray: image reviewed CT scan - chest: image reviewed Assessment and Plan Assessment: Acute COPD exacerbation Acute on chronic hypoxic and hypercapnic respiratory failure, secondary to above, repeat chest CT angiogram did not show any pulmonary embolism. Continues to show bibasilar airspace consolidations, which may be increased in my opinion , consistent with multi lobar pneumonia and trace parapneumonic effusion. Severe hypoglycemia, previous on glimepiride which is on hold Altered mental status, secondary to above, improved Sputum culture from 12/25/2024 positive for multidrug-resistant Pseudomonas aeruginosa, completed 10-day course of Zerbaxa. Repeat sputum culture showing normal respiratory farooq Sputum positive for MRSA 11/27/2024 Left hemidiaphragm elevation possible paralysis Chronic obstructive pulmonary disease, with an FEV1 64% predicted, Gold stage II Chronic hypoxemic respiratory failure, secondary to combination of above Hyponatremia Leukocytosis Chronic ongoing tobacco dependence Hypothyroidism Hypertension History of mediastinal lymphadenopathy History of gastric bypass surgery Bipolar disorder Fibromyalgia and chronic pain syndrome Plan: Continues on BiPAP with current settings, may attempt to transition patient back to nasal cannula as tolerated Continue DuoNebs Add Solu-Medrol 60 every 6 Add budesonide and formoterol inhalations Obtain sputum sample possible Check procalcitonin level Continue antibiotics ABG reviewed Continue Accu-Cheks hourly Add D10W infusion for refractory hypoglycemia Sulfonylurea on hold We willl continue to follow, additional recommendations to follow. I have personally seen and examined the patient, performed the documentation and the assessment and plan as written. Number of minutes spent on the visit:20 This dictation was produced using [employer] dictation software please excuse grammatical errors Time with Patient: Greater than 30
[2025-01-24 07:19] LABS: Glucose,Whole Blood 86 mg/dL (70-110)
[2025-01-24] MEDS: FORMOTEROL FUMARATE 20 MCG/2 ML NEBU INHALATION SCH (08:22)
[2025-01-24] MEDS: IPRATROPIUM-ALBUTEROL 3 ML NEB INHALATION SCH (08:22)
[2025-01-24] MEDS: BUDESONIDE 1 MG/2 ML NEBU INHALATION SCH (08:23)
[2025-01-24] MEDS: ENOXAPARIN 40 MG/0.4 ML SYRINGE SQ SCH (08:28)
[2025-01-24] MEDS: methylPREDNISolone SOD SUCCI 125 MG/2 ML VIAL IV SCH (08:29)
[2025-01-24 09:41] LABS: Glucose,Whole Blood 25 mg/dL (70-110)
[2025-01-24 09:41] LABS: Glucose,Whole Blood 24 mg/dL (70-110)
[2025-01-24] MEDS: DEXTROSE 50% SYRINGE 50 ML IVP PRN (10:01)
[2025-01-24 10:16] LABS: Glucose,Whole Blood 170 mg/dL (70-110)
[2025-01-24] MEDS: LORazepam 1 MG/0.5 ML VIAL IV STA (11:32)
[2025-01-24 12:00] LABS: ABG PCO2 69 mmHg (35-45); ABG PH 7.40 (7.35-7.45); ABG PO2 67 mmHg (83-108); ABG TCO2 45 mmol/L (19-24); Allen Test Performed? Yes
[2025-01-24 12:03] LABS: ABG HCO3 43 mmol/L (21-25)
[2025-01-24 15:02] LABS: Glucose,Whole Blood 115 mg/dL (70-110)
[2025-01-24] MEDS ORDERED: NITROGLYCERIN SL TABS 0.4 MG TAB SUBLINGUAL PRN (15:22)
[2025-01-24 16:30] LABS: Glucose,Whole Blood 180 mg/dL (70-110)
[2025-01-24] MEDS: HYDROcodone/APAP 5-325MG 1 EACH TAB PO PRN (17:20)
[2025-01-24] MEDS: LORazepam 1 MG/0.5 ML VIAL IV ONE (17:20)
[2025-01-24] MEDS: lamoTRIgine 100 MG TAB PO SCH (17:21)
[2025-01-24] MEDS: TAMSULOSIN 0.4 MG CAP.ER.24H PO SCH (17:21)
[2025-01-24] MEDS: GABAPENTIN 300 MG CAP PO SCH (17:21)
[2025-01-24] MEDS: ASPIRIN 81 MG PO SCH (17:21)
[2025-01-24] MEDS ORDERED: BUDESONIDE 1 MG/2 ML NEBU INHALATION SCH (20:00)
[2025-01-24 20:11] LABS: Glucose,Whole Blood 396 mg/dL (70-110)
[2025-01-24] MEDS: amLODIPine 5 MG TAB PO SCH (20:31)
[2025-01-24] MEDS: METOPROLOL TARTRATE 25 MG TAB PO SCH (20:32)
[2025-01-24] MEDS: CYCLOBENZAPRINE 10 MG TAB PO SCH (20:32)
[2025-01-24] MEDS: FAMOTIDINE 20 MG TAB PO SCH (20:34)
[2025-01-24] MEDS: MONTELUKAST 10 MG TAB PO SCH (20:34)
[2025-01-24] MEDS: DIVALPROEX ER 250 MG TAB.ER.24H PO SCH (20:35)
[2025-01-24] MEDS: VENLAFAXINE HCL ER 150 MG CAP PO SCH (20:35)
[2025-01-24] MEDS: NICOTINE 7MG/24HR PATCH TRANSDERM SCH (20:35)
[2025-01-25 00:58] LABS: Glucose,Whole Blood 434 mg/dL (70-110)
[2025-01-25] MEDS: INSULIN LISPRO (HumaLOG) 100 UNIT/ML 10 mL VL SQ SCH (01:02)
[2025-01-25 02:42] LABS: Glucose,Whole Blood 405 mg/dL (70-110)
[2025-01-25 04:11] LABS: Glucose,Whole Blood 284 mg/dL (70-110)
[2025-01-25 05:46] LABS: Glucose,Whole Blood 339 mg/dL (70-110)
--- NOTE | 2025-01-25 05:53 | P.HPIM ---
History of Present Illness H&P Date: 01/24/25 This is a pleasant 69-year-old female who presented to the emergency department via EMS from [facility] where patient was at for continued PT/OT therapy from previous admission with significant weakness. Patient was found to be altered and more confused and hypoxic, maintained on chronic 4 to 5 L and having increasing shortness of breath. Patient was sent to the ER for further evaluation. Patient was placed on BiPAP with concerns of possible pneumonia. Patient had extensive pneumonia with positive sputum cultures and previous admission with infectious disease following and had been maintained on prolonged antibiotics. Patient was started on Levaquin by the ER. Chest x-ray on admission shows patchy bilateral airspace consolidations in the perihilar and lung bases consistent with multilobar pneumonia as well as small bilateral effusions noted. CT brain was performed showing no acute intracranial hemorrhage midline shift or mass effect. D-dimer was mildly elevated and patient did undergo CTA which shows no evidence of PE. Patient also underwent CT abdomen pelvis showing some moderate fecal retention correlate for constipation and was started on a bowel regimen. Patient follows with Dr. Wheeler in the outpatient setting, heart failure, asthma, fibromyalgia, GERD, hypertension, osteoarthritis, previous pulmonary embolus back and neck pain with spinal stenosis and cervical disc, scoliosis, significant anxiety, continued ongoing nicotine use, and THC use. Labs revealed a white count of 22.79, platelets 389, D-dimer minimally elevated at 0.73, sodium 128 with a potassium of 5.1, BUN is 31 and creatinine is 0.44 blood sugar was checked and found to be extremely low and treated. Troponin was negative and BNP was 1250. Procalcitonin ordered and pending at this time. Patient had been maintained on continued prednisone taper from previous discharge as well as [id number] breathing treatments. Patient was admitted to the hospital for acute on chronic hypoxic respiratory failure requiring BiPAP exacerbation and concerns of possible multilobar pneumonia. After review of previous admission imaging, opacities and infiltrates appear to be the same. Patient will be continued on BiPAP and wean as tolerated as patient chronically wears 5 L outpatient. Pulmonary consulted as well. Patient was started on Levaquin and breathing treatments and will review and resume appropriate medications once verified. Continue monitoring Accu-Cheks carefully. REVIEW OF SYSTEMS: CONSTITUTIONAL: No fever, no malaise, no fatigue. Reports of feeling extremely anxious HEENT: No recent visual problems or hearing problems. Denied any sore throat. CARDIOVASCULAR: No chest pain, orthopnea, PND, no palpitations, no syncope. PULMONARY: Reports of shortness of breath, reports cough with no production, no hemoptysis. GASTROINTESTINAL: No diarrhea, no nausea, no vomiting, reports diffuse abdominal pain. NEUROLOGICAL: No headaches, no weakness, no numbness. HEMATOLOGICAL: Denies any bleeding or petechiae. GENITOURINARY: Denies any burning micturition, frequency, or urgency. MUSCULOSKELETAL/RHEUMATOLOGICAL: Denies any joint pain, swelling, or any muscle pain. ENDOCRINE: Denies any polyuria or polydipsia. The rest of the 14-point review of systems is negative. PHYSICAL EXAMINATION: GENERAL: The patient is alert and oriented x3, anxious maintained on BiPAP. Well developed, well nourished. Elderly appearing, chronically ill-appearing, obese HEENT: Pupils are round and equally reacting to light. EOMI. No scleral icterus. No conjunctival pallor. Normocephalic, atraumatic. No pharyngeal erythema. No thyromegaly. CARDIOVASCULAR: S1 and S2 muffled PULMONARY: Diminished breath sounds bilaterally with some scattered expiratory wheezing and faint crackles noted at the bases. BiPAP noted ABDOMEN: Soft, nontender, nondistended, normoactive bowel sounds. No palpable organomegaly. MUSCULOSKELETAL: No joint swelling or deformity. EXTREMITIES: No cyanosis, clubbing, or pedal edema. NEUROLOGICAL: Gross neurological examination did not reveal any focal deficits. Diffusely weak SKIN: No rashes. 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 Continued ongoing nicotine dependence, patient has not smoked in 3 weeks due to hospitalization and being at [facility] THC use Severe anxiety/depression/bipolar disorder History of hyponatremia hypertension History of chronic pain and fibromyalgia History of scoliosis Obesity with a BMI of 34.7 GI prophylaxis DVT prophylax Full code Plan: Patient was admitted and placed on BiPAP in the ER currently maintained on BiPAP with follow-up blood gases showing some improvements although recommend to continue with BiPAP and wean to 5 L Pulmonary consulted and following, will continue breathing treatments and Levaquin has been added. Procalcitonin pending and sputum culture ordered and pending as well Home medications reviewed and resumed as appropriate Recommend to continue monitoring Accu-Cheks AC and at bedtime and will add as needed sliding scale hold oral diabetic agents at this time. Follow-up on repeat labs Recommend PT/OT therapy and case management consult with plans on returning to [facility] on discharge The impression and plan of care has been dictated by Audrey Curtis, Nurse Practitioner as directed. Dr. Micky MD I have performed a history and examination and MDM of this patient, discussed t he same with the dictator, and agree with the dictator's assessment and plan as written ,documented as a scribe. Based on total visit time, I have performed more than 50% of the visit. 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 History of Any Multi-Drug Resistant Organisms: MRSA, Other MDRO Date of last positivie culture/infection: 12/19/24-Other MDRO; 11/27/24-MRSA MDRO Source:: Other MDRO-sputum; MRSA-sputum, knee Past Surgical History: Bariatric Surgery, Section, Cholecystectomy, Hysterectomy, Tonsillectomy Additional Past Surgical History / Comment(s): EGD, colonoscopies, gastric bypass, surgery for deviated septum, left cataract removal (having laser procedure on that eye 11/24/23) Past Anesthesia/Blood Transfusion Reactions: Previous Problems w/ Anesthesia Additional Past Anesthesia/Blood Transfusion Reaction / Comment(s): itching after hysterectomy, some kind of breathing problem after gastric bypass-not sure what happened Past Psychological History: Anxiety, Bipolar, Depression, Panic Disorder Smoking Status: Current every day smoker Past Alcohol Use History: None Reported Past Drug Use History: Marijuana - Past Family History Mother Family Medical History: Congestive Heart Failure (CHF), Hypertension Father History Unknown: Yes Additional Family Medical History / Comment(s): Father at the age of 45 yrs d/t having had rheumatic fever as a child and heart valve disease. Medications and Allergies Home Medications Medication Instructions Recorded Confirmed Type Montelukast [Singulair] 10 mg PO HS 12/17/13 01/24/25 History Levothyroxine Sodium [Synthroid] 150 mcg PO DAILY 03/29/20 01/24/25 History Famotidine [Pepcid] 20 mg PO BID 09/03/21 01/24/25 History Tamsulosin [Flomax] 0.4 mg PO DAILY 10/26/21 01/24/25 History Ipratropium-Albuterol Nebulize 3 ml INHALATION RT-QID 11/13/22 01/24/25 History [Duoneb 0.5 mg-3 mg/3 ml Soln] lamoTRIgine [LaMICtal] 100 mg PO BID 03/18/24 01/24/25 History Metoprolol Tartrate [Lopressor] 25 mg PO BID 05/16/24 01/24/25 History Divalproex ER [Depakote ER] 250 mg PO BID #60 tab 05/26/24 01/24/25 Rx Gabapentin 300 mg PO TID 06/01/24 01/24/25 History busPIRone HCL [Buspar] 30 mg PO BID 06/09/24 01/24/25 History Fluticasone/Umeclidin/Vilanter 1 puff INHALATION RT-DAILY 10/17/24 01/24/25 History [Trelegy Ellipta 200-62.5-25] OLANZapine 15 mg PO HS 10/17/24 01/24/25 History Venlafaxine HCl [Effexor XR] 150 mg PO DAILY 10/17/24 01/24/25 History amLODIPine [Norvasc] 5 mg PO BID 30 Days #60 tab 10/21/24 01/24/25 Rx lisinopriL [Zestril] 10 mg PO DAILY 30 Days #30 tab 10/21/24 01/24/25 Rx Nitroglycerin Sl Tabs [Nitrostat] 0.4 mg SUBLINGUAL Q5M PRN #20 tab 11/30/24 01/24/25 Rx Furosemide [Lasix] 20 mg PO DAILY 12/11/24 01/24/25 History guaiFENesin [Mucinex] 600 mg PO Q8H PRN 12/24/24 01/24/25 History Ipratropium-Albuterol Nebulize 3 ml INHALATION RT-Q4H PRN each 12/26/24 01/24/25 Rx [Duoneb 0.5 mg-3 mg/3 ml Soln] Docusate [Colace] 100 mg PO DAILY cap 01/08/25 01/24/25 Rx bisacodyL [Dulcolax] 10 mg PO DAILY tab 01/08/25 01/24/25 Rx polyethylene glycoL 3350 [Miralax] 17 gm PO HS packet 01/08/25 01/24/25 Rx Acetaminophen Tab [Tylenol] 650 mg PO Q4H PRN 01/24/25 01/24/25 History Aspirin 81 mg PO DAILY 01/24/25 01/24/25 History Budesonide [Pulmicort] 1 mg INHALATION RT-BID 01/24/25 01/24/25 History Buprenorphine [Butrans 7.5 MCG/HR] 1 patch TRANSDERM FR 01/24/25 01/24/25 History Cholecalciferol [Vitamin D3 (25 50 mcg PO DAILY 01/24/25 01/24/25 History Mcg = 1000 Iu)] Cyanocobalamin [Vitamin B-12] 500 mcg PO DAILY 01/24/25 01/24/25 History Cyclobenzaprine [Flexeril] 10 mg PO HS 01/24/25 01/24/25 History Glimepiride 1 mg PO BID 01/24/25 01/24/25 History HYDROcodone/APAP 5-325MG [[place] 1 tab PO Q8H PRN 01/24/25 01/24/25 History 5-325] Insulin Lispro [humaLOG Kwikpen] See Protocol SQ AC-TID 01/24/25 01/24/25 History Levofloxacin [Levaquin] 500 mg PO DAILY 01/24/25 01/24/25 History Nicotine 7Mg/24Hr Patch [Habitrol] 1 patch TRANSDERM DAILY 01/24/25 01/24/25 History predniSONE 10 mg PO DAILY 01/24/25 01/24/25 History predniSONE See Taper PO DIRECTED 01/24/25 01/24/25 History Allergies Allergy/AdvReac Type Severity Reaction Status Date / Time codeine Allergy Unknown Verified 01/24/25 10:24 Childhood Penicillins Allergy Rash/Hives Verified 01/24/25 10:24 Sulfa (Sulfonamide Allergy Rash/Hives Verified 01/24/25 10:24 Antibiotics) Physical Exam Vitals: Vital Signs Temp Pulse Resp BP Pulse Ox FiO2 01/24/25 08:50 96 01/24/25 08:36 96 01/24/25 08:35 96 01/24/25 08:23 98 60 01/24/25 06:36 92 22 132/90 96 01/24/25 05:41 94 16 140/56 98 01/24/25 04:28 91 17 121/71 98 01/24/25 03:36 70 01/24/25 02:20 77 16 130/60 96 01/24/25 01:28 71 14 01/24/25 00:54 76 20 01/24/25 00:38 81 17 80 01/24/25 00:37 80 01/24/25 00:33 86 18 107/56 94 L 01/24/25 00:11 98 F 88 16 130/77 88 L Intake and Output 01/23/25 01/24/25 01/24/25 22:59 06:59 14:59 Output Total 1010 Balance -1010 Output: Urine 1010 Uretheral (Husain) 1010 Other: Weight 86.183 kg Results CBC & Chem 7: 01/24/25 00:29 01/24/25 00:29 Labs: Abnormal Lab Results - Last 24 Hours (Table) 01/24/25 01/24/25 01/24/25 Range/Units 00:22 00:25 00:29 WBC 22.79 H (4.50-10.00) 10*3/uL RBC 3.29 L (4.10-5.20) 10*6/uL Hgb 10.0 L (12.0-15.0) g/dL Hct 32.1 L (37.2-46.3) % MCV 97.6 H (80.0-97.0) fL MCHC 31.2 L (32.0-37.0) g/dL MPV 9.1 L (9.5-12.2) fL Immature Gran # 0.73 H (0.00-0.04) 10*3/uL Neutrophils # (Manual) 17.77 H (1.3-7.7) k/uL Monocytes # (Manual) 2.51 H (0-1.0) k/uL Metamyelocytes # (Man) 0.23 H (0) k/uL PT (10.0-12.5) sec D-Dimer (<0.60) mg/L FEU ABG pH 7.30 L (7.35-7.45) ABG pCO2 81 H* (35-45) mmHg ABG pO2 63 L (83-108) mmHg ABG HCO3 39 H (21-25) mmol/L ABG Total CO2 42 H (19-24) mmol/L ABG O2 Saturation 92.1 L (94-97) % Hemoglobin 10.2 L (11.4-16.0) gm/dL Sodium (137-145) mmol/L Chloride (98-107) mmol/L Carbon Dioxide (22-30) mmol/L BUN (7-17) mg/dL Creatinine (0.52-1.04) mg/dL Glucose (74-99) mg/dL POC Glucose (mg/dL) 22 L* (70-110) mg/dL Plasma Lactic Acid Joel (0.7-2.0) mmol/L AST (14-36) U/L ALT (4-34) U/L C-Reactive Protein (<1.0) mg/dL Total Protein (6.3-8.2) g/dL Albumin (3.5-5.0) g/dL Urine Glucose (UA) (Negative) 01/24/25 01/24/25 01/24/25 Range/Units 00:29 00:29 00:29 WBC (4.50-10.00) 10*3/uL RBC (4.10-5.20) 10*6/uL Hgb (12.0-15.0) g/dL Hct (37.2-46.3) % MCV (80.0-97.0) fL MCHC (32.0-37.0) g/dL MPV (9.5-12.2) fL Immature Gran # (0.00-0.04) 10*3/uL Neutrophils # (Manual) (1.3-7.7) k/uL Monocytes # (Manual) (0-1.0) k/uL Metamyelocytes # (Man) (0) k/uL PT 9.6 L (10.0-12.5) sec D-Dimer 0.73 H (<0.60) mg/L FEU ABG pH (7.35-7.45) ABG pCO2 (35-45) mmHg ABG pO2 (83-108) mmHg ABG HCO3 (21-25) mmol/L ABG Total CO2 (19-24) mmol/L ABG O2 Saturation (94-97) % Hemoglobin (11.4-16.0) gm/dL Sodium 128 L (137-145) mmol/L Chloride 87 L (98-107) mmol/L Carbon Dioxide 36 H (22-30) mmol/L BUN 31 H (7-17) mg/dL Creatinine 0.44 L (0.52-1.04) mg/dL Glucose <20 L* (74-99) mg/dL POC Glucose (mg/dL) (70-110) mg/dL Plasma Lactic Acid Joel 0.6 L (0.7-2.0) mmol/L AST 109 H (14-36) U/L ALT 51 H (4-34) U/L C-Reactive Protein (<1.0) mg/dL Total Protein 5.6 L (6.3-8.2) g/dL Albumin 3.4 L (3.5-5.0) g/dL Urine Glucose (UA) (Negative) 01/24/25 01/24/25 01/24/25 Range/Units 00:44 01:04 01:10 WBC (4.50-10.00) 10*3/uL RBC (4.10-5.20) 10*6/uL Hgb (12.0-15.0) g/dL Hct (37.2-46.3) % MCV (80.0-97.0) fL MCHC (32.0-37.0) g/dL MPV (9.5-12.2) fL Immature Gran # (0.00-0.04) 10*3/uL Neutrophils # (Manual) (1.3-7.7) k/uL Monocytes # (Manual) (0-1.0) k/uL Metamyelocytes # (Man) (0) k/uL PT (10.0-12.5) sec D-Dimer (<0.60) mg/L FEU ABG pH (7.35-7.45) ABG pCO2 (35-45) mmHg ABG pO2 (83-108) mmHg ABG HCO3 (21-25) mmol/L ABG Total CO2 (19-24) mmol/L ABG O2 Saturation (94-97) % Hemoglobin (11.4-16.0) gm/dL Sodium (137-145) mmol/L Chloride (98-107) mmol/L Carbon Dioxide (22-30) mmol/L BUN (7-17) mg/dL Creatinine (0.52-1.04) mg/dL Glucose (74-99) mg/dL POC Glucose (mg/dL) 225 H 171 H (70-110) mg/dL Plasma Lactic Acid Joel (0.7-2.0) mmol/L AST (14-36) U/L ALT (4-34) U/L C-Reactive Protein (<1.0) mg/dL Total Protein (6.3-8.2) g/dL Albumin (3.5-5.0) g/dL Urine Glucose (UA) 1+ H (Negative) 01/24/25 01/24/25 01/24/25 Range/Units 01:34 02:11 03:29 WBC (4.50-10.00) 10*3/uL RBC (4.10-5.20) 10*6/uL Hgb (12.0-15.0) g/dL Hct (37.2-46.3) % MCV (80.0-97.0) fL MCHC (32.0-37.0) g/dL MPV (9.5-12.2) fL Immature Gran # (0.00-0.04) 10*3/uL Neutrophils # (Manual) (1.3-7.7) k/uL Monocytes # (Manual) (0-1.0) k/uL Metamyelocytes # (Man) (0) k/uL PT (10.0-12.5) sec D-Dimer (<0.60) mg/L FEU ABG pH 7.31 L (7.35-7.45) ABG pCO2 80 H* (35-45) mmHg ABG pO2 63 L (83-108) mmHg ABG HCO3 41 H* (21-25) mmol/L ABG Total CO2 43 H (19-24) mmol/L ABG O2 Saturation 92.5 L (94-97) % Hemoglobin 10.1 L (11.4-16.0) gm/dL Sodium (137-145) mmol/L Chloride (98-107) mmol/L Carbon Dioxide (22-30) mmol/L BUN (7-17) mg/dL Creatinine (0.52-1.04) mg/dL Glucose (74-99) mg/dL POC Glucose (mg/dL) 155 H 135 H (70-110) mg/dL Plasma Lactic Acid Joel (0.7-2.0) mmol/L AST (14-36) U/L ALT (4-34) U/L C-Reactive Protein (<1.0) mg/dL Total Protein (6.3-8.2) g/dL Albumin (3.5-5.0) g/dL Urine Glucose (UA) (Negative) 01/24/25 01/24/25 01/24/25 Range/Units 04:00 04:02 04:45 WBC (4.50-10.00) 10*3/uL RBC (4.10-5.20) 10*6/uL Hgb (12.0-15.0) g/dL Hct (37.2-46.3) % MCV (80.0-97.0) fL MCHC (32.0-37.0) g/dL MPV (9.5-12.2) fL Immature Gran # (0.00-0.04) 10*3/uL Neutrophils # (Manual) (1.3-7.7) k/uL Monocytes # (Manual) (0-1.0) k/uL Metamyelocytes # (Man) (0) k/uL PT (10.0-12.5) sec D-Dimer (<0.60) mg/L FEU ABG pH (7.35-7.45) ABG pCO2 (35-45) mmHg ABG pO2 (83-108) mmHg ABG HCO3 (21-25) mmol/L ABG Total CO2 (19-24) mmol/L ABG O2 Saturation (94-97) % Hemoglobin (11.4-16.0) gm/dL Sodium (137-145) mmol/L Chloride (98-107) mmol/L Carbon Dioxide (22-30) mmol/L BUN (7-17) mg/dL Creatinine (0.52-1.04) mg/dL Glucose (74-99) mg/dL POC Glucose (mg/dL) 44 L* 44 L* (70-110) mg/dL Plasma Lactic Acid Joel (0.7-2.0) mmol/L AST (14-36) U/L ALT (4-34) U/L C-Reactive Protein 15.0 H (<1.0) mg/dL Total Protein (6.3-8.2) g/dL Albumin (3.5-5.0) g/dL Urine Glucose (UA) (Negative) 01/24/25 01/24/25 01/24/25 Range/Units 05:53 06:20 09:36 WBC (4.50-10.00) 10*3/uL RBC (4.10-5.20) 10*6/uL Hgb (12.0-15.0) g/dL Hct (37.2-46.3) % MCV (80.0-97.0) fL MCHC (32.0-37.0) g/dL MPV (9.5-12.2) fL Immature Gran # (0.00-0.04) 10*3/uL Neutrophils # (Manual) (1.3-7.7) k/uL Monocytes # (Manual) (0-1.0) k/uL Metamyelocytes # (Man) (0) k/uL PT (10.0-12.5) sec D-Dimer (<0.60) mg/L FEU ABG pH (7.35-7.45) ABG pCO2 (35-45) mmHg ABG pO2 (83-108) mmHg ABG HCO3 (21-25) mmol/L ABG Total CO2 (19-24) mmol/L ABG O2 Saturation (94-97) % Hemoglobin (11.4-16.0) gm/dL Sodium (137-145) mmol/L Chloride (98-107) mmol/L Carbon Dioxide (22-30) mmol/L BUN (7-17) mg/dL Creatinine (0.52-1.04) mg/dL Glucose (74-99) mg/dL POC Glucose (mg/dL) 58 L 58 L 24 L* (70-110) mg/dL Plasma Lactic Acid Joel (0.7-2.0) mmol/L AST (14-36) U/L ALT (4-34) U/L C-Reactive Protein (<1.0) mg/dL Total Protein (6.3-8.2) g/dL Albumin (3.5-5.0) g/dL Urine Glucose (UA) (Negative) 01/24/25 01/24/25 Range/Units 09:39 10:12 WBC (4.50-10.00) 10*3/uL RBC (4.10-5.20) 10*6/uL Hgb (12.0-15.0) g/dL Hct (37.2-46.3) % MCV (80.0-97.0) fL MCHC (32.0-37.0) g/dL MPV (9.5-12.2) fL Immature Gran # (0.00-0.04) 10*3/uL Neutrophils # (Manual) (1.3-7.7) k/uL Monocytes # (Manual) (0-1.0) k/uL Metamyelocytes # (Man) (0) k/uL PT (10.0-12.5) sec D-Dimer (<0.60) mg/L FEU ABG pH (7.35-7.45) ABG pCO2 (35-45) mmHg ABG pO2 (83-108) mmHg ABG HCO3 (21-25) mmol/L ABG Total CO2 (19-24) mmol/L ABG O2 Saturation (94-97) % Hemoglobin (11.4-16.0) gm/dL Sodium (137-145) mmol/L Chloride (98-107) mmol/L Carbon Dioxide (22-30) mmol/L BUN (7-17) mg/dL Creatinine (0.52-1.04) mg/dL Glucose (74-99) mg/dL POC Glucose (mg/dL) 25 L* 170 H (70-110) mg/dL Plasma Lactic Acid Joel (0.7-2.0) mmol/L AST (14-36) U/L ALT (4-34) U/L C-Reactive Protein (<1.0) mg/dL Total Protein (6.3-8.2) g/dL Albumin (3.5-5.0) g/dL Urine Glucose (UA) (Negative)
[2025-01-25 06:09] LABS: Basophils # (A) 0.05 10*3/uL (0.00-0.10); Basophils % (A) 0.2 %; Eosinophils # (A) 0.00 10*3/uL (0.04-0.35); Eosinophils % (A) 0.0 %; HCT 29.6 % (37.2-46.3); HGB 9.3 g/dL (12.0-15.0); Lymphocytes # (A) 0.85 10*3/uL (0.90-5.00); Lymphocytes % (A) 3.8 %; MCH 30.5 pg (27.0-32.0); MCHC 31.4 g/dL (32.0-37.0); MCV 97.0 fL (80.0-97.0); Monocytes # (A) 1.53 10*3/uL (0.20-1.00); Monocytes % (A) 6.9 %; Neutrophils # (A) 19.23 10*3/uL (1.80-7.70); Neutrophils % (A) 86.4 %; Platelet Count 300 10*3/uL (140-440); RBC 3.05 10*6/uL (4.10-5.20); RDW 13.9 % (11.5-14.5); WBC 22.25 10*3/uL (4.50-10.00)
[2025-01-25 06:35] LABS: ALT 26 U/L (4-34); AST 28 U/L (14-36); African American GFR (CKD) >90 (>60 ml/min/1.73 sqM); Albumin 2.8 g/dL (3.5-5.0); Alkaline Phosphatase 100 U/L (38-126); Blood Urea Nitrogen 23 mg/dL (7-17); Calcium 9.2 mg/dL (8.4-10.2); Chloride 85 mmol/L (98-107); Glucose 207 mg/dL (74-99); Magnesium 1.8 mg/dL (1.6-2.3); Non-African American GFR(CKD) >90 (>60 ml/min/1.73 sqM); Potassium 4.6 mmol/L (3.5-5.1); Sodium 128 mmol/L (137-145); Total Protein 4.8 g/dL (6.3-8.2)
[2025-01-25 06:44] LABS: Anion Gap 7 mmol/L; Carbon Dioxide 36 mmol/L (22-30)
[2025-01-25 07:56] LABS: Glucose,Whole Blood 184 mg/dL (70-110)
[2025-01-25] MEDS: CYANOCOBALAMIN 500 MCG TAB PO SCH (08:17)
[2025-01-25] MEDS: CHOLECALCIFEROL 25 MCG (1000 IU) TABLET PO SCH (08:17)
[2025-01-25] MEDS: LEVOFLOXACIN 750 MG TAB PO SCH (08:18)
[2025-01-25] MEDS: FUROSEMIDE 20 MG TAB PO SCH (08:18)
[2025-01-25] MEDS: LEVOTHYROXINE 75 MCG TAB PO SCH (08:18)
[2025-01-25] MEDS: DOCUSATE 100 MG CAP PO SCH (08:19)
[2025-01-25 09:57] LABS: Glucose,Whole Blood 197 mg/dL (70-110)
[2025-01-25 11:52] LABS: Glucose,Whole Blood 150 mg/dL (70-110)
--- NOTE | 2025-01-25 12:08 | P.PN ---
Subjective Progress Note Date: 01/25/25 Patient is a 69-year-old female with past medical history significant for COPD, chronic hypoxemic respiratory failure, chronic ongoing tobacco use, heart failure, pulmonary embolism, diabetes mellitus type II, hypothyroidism, gastric bypass. Patient recently discharged from hospital on 01/08/2025 to [facility] on the [place] for rehab. She was admitted with acute COPD exacerbation. Sputum culture was positive for multidrug-resistant Pseudomonas aeruginosa. She was treated with a 10-day course of Zerbaxa. Repeat sputum culture showing normal respiratory farooq. Also, previously MRSA was identified in the sputum back on Nov, 2024. Early this morning, patient brought in by EMS from the [facility]. She was noted to be confused at the outside facility. Also, having difficulty breathing. Pulse ox is reading low, around 60%, on 5 L/min nasal cannula. Patient was severel hypoglycemic on arrival with a blood glucose less than 20, and received multiple amps of D50 W and continued on a D5/0.9 saline infusion at 75 mm/h. She was on a sulfonylurea at the outside facility. An ABG was drawn consistent with acute on chronic hypercapnic and hypoxemic respiratory failure. She was placed on BiPAP in the ED. Brain CT did not show any acute intracranial hemorrhage, midline shift, or mass effect. Chest CT angiogram did not show any pulmonary embolism. Appears to be increased bibasilar airspace consolidations, consistent with multi lobar pneumonia and trace parapneumonic effusion. CBC with a WBC count of 22.79, hemoglobin 10, platelets 389. CMP: Sodium 128, potassium 5.1, chloride 87, serum bicarb 36, BUN 31, creatinine 0.44, blood glucose less than 20. LFTs mildly elevated. Lactic acid not elevated. Troponin less than 0.012. NT-proBNP 1250. Urinalysis unremarkable for infection. Most recent blood glucose 82. Currently being evaluated emergency department. She is on BiPAP with settings 16/6 and FiO2 70%. Nonlabored breathing. Achieving good tidal volumes. She is alert and oriented x 3. Does not call recall immediate events prior to hospitalization. No specific complaints at this time other than she would like a drink of water. Admits to occasional cough with phlegm. Denies any hemoptysis, pleurisy. No fevers or chills. Previously started on Levaquin. Denies any nausea, vomiting, diarrhea, abdominal pain. Appetite has been good. She does have a mild tremor, staff nurse is going to check her blood sugar which has been repetitively low. Recently started on D5W with 0.9 at 75 mL/h The patient is seen today January 25, 2025 in follow-up on the selective care unit. She is currently sitting up in bed. Awake and alert in no acute distress. Maintaining O2 saturations in the 90s on 5 L/min per nasal cannula. She is afebrile. Hemodynamically stable. White count 22.2. Hemoglobin 9.3. Platelets 300,000. Sodium 128. Potassium 4.6. Bicarb 36. BUN 23. Creatinine 0.55. Glucose 207. She remains on DuoNeb inhalations, Pulmicort and Perforomist inhalations, Solu-Medrol, Singulair. NicoDerm patch in place. Lovenox for DVT prophylaxis. Remains on antibiotics in the form of Levaquin. Objective - Vital Signs Vital signs: Vital Signs Temp 98.5 F 01/25/25 08:06 Pulse 88 01/25/25 11:55 Resp 22 01/25/25 11:55 BP 164/78 01/25/25 08:06 Pulse Ox 91 L 01/25/25 08:06 FiO2 50 01/25/25 07:55 Intake & Output 01/24/25 01/25/25 01/25/25 18:59 06:59 18:59 Intake Total 0 Output Total 900 900 Balance -900 -900 0 Weight 86.183 kg 86 kg Intake: Oral 0 Output: Urine 900 900 Uretheral (Husain) 900 Other: Voiding Method Indwelling Catheter Indwelling Catheter Indwelling Catheter - Exam GENERAL EXAM: Alert, 69-year-old obese female, mild tremor, on 5 L nasal cannula, in no apparent distress. HEAD: Normocephalic and atraumatic EYES: Normal reaction of pupils, equal size. NOSE: Clear with pink turbinates. THROAT: No erythema or exudates. NECK: No masses, no JVD. CHEST: No chest wall deformity. LUNGS: Equal air entry with diminished bibasilar lung sounds. No wheezes, rhonchi, crackles. Non labored breathing. CVS: S1 and S2 normal with no audible murmur, regular rhythm. No extra heart sounds ABDOMEN: No hepatosplenomegaly, active bowel sounds, no guarding or rigidity. SPINE: No scoliosis or deformity SKIN: No rashes CENTRAL NERVOUS SYSTEM: No focal deficits, tone is normal in all 4 extremities. EXTREMITIES: There is no peripheral edema, clubbing, or cyanosis. Peripheral pulses are intact. - Labs CBC & Chem 7: 01/25/25 05:02 01/25/25 05:02 Labs: Abnormal Lab Results - Last 24 Hours (Table) 01/24/25 01/24/25 01/24/25 Range/Units 11:52 15:00 16:29 WBC (4.50-10.00) 10*3/uL RBC (4.10-5.20) 10*6/uL Hgb (12.0-15.0) g/dL Hct (37.2-46.3) % MCHC (32.0-37.0) g/dL MPV (9.5-12.2) fL Immature Gran # (0.00-0.04) 10*3/uL Neutrophils # (1.80-7.70) 10*3/uL Lymphocytes # (0.90-5.00) 10*3/uL Monocytes # (0.20-1.00) 10*3/uL Eosinophils # (0.04-0.35) 10*3/uL ABG pCO2 69 H (35-45) mmHg ABG pO2 67 L (83-108) mmHg ABG HCO3 43 H* (21-25) mmol/L ABG Total CO2 45 H (19-24) mmol/L Hemoglobin 10.1 L (11.4-16.0) gm/dL Sodium (137-145) mmol/L Chloride (98-107) mmol/L Carbon Dioxide (22-30) mmol/L BUN (7-17) mg/dL Glucose (74-99) mg/dL POC Glucose (mg/dL) 115 H 180 H (70-110) mg/dL Total Protein (6.3-8.2) g/dL Albumin (3.5-5.0) g/dL 01/24/25 01/25/25 01/25/25 Range/Units 20:09 00:56 02:40 WBC (4.50-10.00) 10*3/uL RBC (4.10-5.20) 10*6/uL Hgb (12.0-15.0) g/dL Hct (37.2-46.3) % MCHC (32.0-37.0) g/dL MPV (9.5-12.2) fL Immature Gran # (0.00-0.04) 10*3/uL Neutrophils # (1.80-7.70) 10*3/uL Lymphocytes # (0.90-5.00) 10*3/uL Monocytes # (0.20-1.00) 10*3/uL Eosinophils # (0.04-0.35) 10*3/uL ABG pCO2 (35-45) mmHg ABG pO2 (83-108) mmHg ABG HCO3 (21-25) mmol/L ABG Total CO2 (19-24) mmol/L Hemoglobin (11.4-16.0) gm/dL Sodium (137-145) mmol/L Chloride (98-107) mmol/L Carbon Dioxide (22-30) mmol/L BUN (7-17) mg/dL Glucose (74-99) mg/dL POC Glucose (mg/dL) 396 H 434 H 405 H (70-110) mg/dL Total Protein (6.3-8.2) g/dL Albumin (3.5-5.0) g/dL 01/25/25 01/25/25 01/25/25 Range/Units 04:09 05:02 05:02 WBC 22.25 H (4.50-10.00) 10*3/uL RBC 3.05 L (4.10-5.20) 10*6/uL Hgb 9.3 L (12.0-15.0) g/dL Hct 29.6 L (37.2-46.3) % MCHC 31.4 L (32.0-37.0) g/dL MPV 9.2 L (9.5-12.2) fL Immature Gran # 0.59 H (0.00-0.04) 10*3/uL Neutrophils # 19.23 H (1.80-7.70) 10*3/uL Lymphocytes # 0.85 L (0.90-5.00) 10*3/uL Monocytes # 1.53 H (0.20-1.00) 10*3/uL Eosinophils # 0.00 L (0.04-0.35) 10*3/uL ABG pCO2 (35-45) mmHg ABG pO2 (83-108) mmHg ABG HCO3 (21-25) mmol/L ABG Total CO2 (19-24) mmol/L Hemoglobin (11.4-16.0) gm/dL Sodium 128 L (137-145) mmol/L Chloride 85 L (98-107) mmol/L Carbon Dioxide 36 H (22-30) mmol/L BUN 23 H (7-17) mg/dL Glucose 207 H (74-99) mg/dL POC Glucose (mg/dL) 284 H (70-110) mg/dL Total Protein 4.8 L (6.3-8.2) g/dL Albumin 2.8 L (3.5-5.0) g/dL 01/25/25 01/25/25 01/25/25 Range/Units 05:42 07:55 09:55 WBC (4.50-10.00) 10*3/uL RBC (4.10-5.20) 10*6/uL Hgb (12.0-15.0) g/dL Hct (37.2-46.3) % MCHC (32.0-37.0) g/dL MPV (9.5-12.2) fL Immature Gran # (0.00-0.04) 10*3/uL Neutrophils # (1.80-7.70) 10*3/uL Lymphocytes # (0.90-5.00) 10*3/uL Monocytes # (0.20-1.00) 10*3/uL Eosinophils # (0.04-0.35) 10*3/uL ABG pCO2 (35-45) mmHg ABG pO2 (83-108) mmHg ABG HCO3 (21-25) mmol/L ABG Total CO2 (19-24) mmol/L Hemoglobin (11.4-16.0) gm/dL Sodium (137-145) mmol/L Chloride (98-107) mmol/L Carbon Dioxide (22-30) mmol/L BUN (7-17) mg/dL Glucose (74-99) mg/dL POC Glucose (mg/dL) 339 H 184 H 197 H (70-110) mg/dL Total Protein (6.3-8.2) g/dL Albumin (3.5-5.0) g/dL 01/25/25 Range/Units 11:50 WBC (4.50-10.00) 10*3/uL RBC (4.10-5.20) 10*6/uL Hgb (12.0-15.0) g/dL Hct (37.2-46.3) % MCHC (32.0-37.0) g/dL MPV (9.5-12.2) fL Immature Gran # (0.00-0.04) 10*3/uL Neutrophils # (1.80-7.70) 10*3/uL Lymphocytes # (0.90-5.00) 10*3/uL Monocytes # (0.20-1.00) 10*3/uL Eosinophils # (0.04-0.35) 10*3/uL ABG pCO2 (35-45) mmHg ABG pO2 (83-108) mmHg ABG HCO3 (21-25) mmol/L ABG Total CO2 (19-24) mmol/L Hemoglobin (11.4-16.0) gm/dL Sodium (137-145) mmol/L Chloride (98-107) mmol/L Carbon Dioxide (22-30) mmol/L BUN (7-17) mg/dL Glucose (74-99) mg/dL POC Glucose (mg/dL) 150 H (70-110) mg/dL Total Protein (6.3-8.2) g/dL Albumin (3.5-5.0) g/dL Assessment and Plan Assessment: Acute COPD exacerbation Acute on chronic hypoxic and hypercapnic respiratory failure, secondary to above, repeat chest CT angiogram did not show any pulmonary embolism. Continues to show bibasilar airspace consolidations, which may be increased in my opinion, consistent with multi lobar pneumonia and trace parapneumonic effusion Severe hypoglycemia, previous on glimepiride which is on hold Altered mental status, secondary to above, improved Moderate fecal retention/constipation Sputum culture from 12/25/2024 positive for multidrug-resistant Pseudomonas aeruginosa, completed 10-day course of Zerbaxa. Repeat sputum culture showing normal respiratory farooq Sputum positive for MRSA 11/27/2024 Left hemidiaphragm elevation possible paralysis Chronic obstructive pulmonary disease, with an FEV1 64% predicted, Gold stage II Chronic hypoxemic respiratory failure, secondary to combination of above Hyponatremia Leukocytosis Chronic ongoing tobacco dependence Hypothyroidism Hypertension History of mediastinal lymphadenopathy History of gastric bypass surgery Bipolar disorder Fibromyalgia and chronic pain syndrome Plan: The patient was seen and evaluated Labs and medications reviewed Imaging reviewed Stable on 5 L nasal cannula Alternate with BiPAP if necessary Continue DuoNeb inhalations Continue Pulmicort and Perforomist inhalations Continue Solu-Medrol Continue Singulair NicoDerm patch in place Educated again regarding smoking cessation Lovenox for DVT prophylaxis Procalcitonin negative at 0.42 Levaquin discontinued We will continue to follow I have personally seen and examined the patient, performed the documentation and the assessment and plan as written. Number of minutes spent on the visit: 10 Dictation was produced using [employer] dictation software. Please excuse any grammatical, word or spelling errors.
[2025-01-25] MEDS: ALPRAZolam 0.5 MG TAB PO PRN (14:43)
[2025-01-25 16:31] LABS: Glucose,Whole Blood 388 mg/dL (70-110)
[2025-01-25 20:00] LABS: Glucose,Whole Blood 376 mg/dL (70-110)
[2025-01-25] MEDS: ACETAMINOPHEN TAB 325 MG TAB PO PRN (21:25)
--- NOTE | 2025-01-26 04:50 | P.PN ---
Subjective Progress Note Date: 01/25/25 This is a pleasant 69-year-old female who presented to the emergency department via EMS from [facility] where patient was at for continued PT/OT therapy from previous admission with significant weakness. Patient was found to be altered and more confused and hypoxic, maintained on chronic 4 to 5 L and having increasing shortness of breath. Patient was sent to the ER for further evaluation. Patient was placed on BiPAP with concerns of possible pneumonia. Patient had extensive pneumonia with positive sputum cultures and previous admission with infectious disease following and had been maintained on prolonged antibiotics. Patient was started on Levaquin by the ER. Chest x-ray on admission shows patchy bilateral airspace consolidations in the perihilar and lung bases consistent with multilobar pneumonia as well as small bilateral effusions noted. CT brain was performed showing no acute intracranial hemorrhage midline shift or mass effect. D-dimer was mildly elevated and patient did undergo CTA which shows no evidence of PE. Patient also underwent CT abdomen pelvis showing some moderate fecal retention correlate for constipation and was started on a bowel regimen. Patient follows with Dr. Wheeler in the outpatient setting, heart failure, asthma, fibromyalgia, GERD, hypertension, osteoarthritis, previous pulmonary embolus back and neck pain with spinal stenosis and cervical disc, scoliosis, significant anxiety, continued ongoing nicotine use, and THC use. Labs revealed a white count of 22.79, platelets 389, D-dimer minimally elevated at 0.73, sodium 128 with a potassium of 5.1, BUN is 31 and creatinine is 0.44 blood sugar was checked and found to be extremely low and treated. Troponin was negative and BNP was 1250. Procalcitonin ordered and pending at this time. Patient had been maintained on continued prednisone taper from previous discharge as well as [id number] breathing treatments. Patient was admitted to the hospital for acute on chronic hypoxic respiratory failure requiring BiPAP exacerbation and concerns of possible multilobar pneumonia. After review of previous admission imaging, opacities and infiltrates appear to be the same. Patient will be continued on BiPAP and wean as tolerated as patient chronically wears 5 L outpatient. Pulmonary consulted as well. Patient was started on Levaquin and breathing treatments and will review and resume appropriate medications once verified. Continue monitoring Accu-Cheks closely. 01/25/2025 Patient seen and evaluated in follow-up this morning continues on BiPAP with extreme anxiety recommend weaning and transitioning to chronic 5 L via nasal cannula. Pulmonary is following maintained on IV steroids along with breathing treatments and Levaquin. Procalcitonin 0.42 and antibiotics being discontinued per pulmonary. Recommend PT/OT therapy evaluation as plan will be to return to [facility] on discharge for continued strength and mobility. Encourage increased activity as tolerated. Mentation is baseline and patient continues to be extremely anxious. Medications adjusted. Review of systems: Constitutional: No reports of fatigue, fever, or chills, reports extreme anxiety Cardiovascular: No reports of chest pain or palpitations Respiratory: reports of continued shortness of breath and occasional cough GI: No reports of nausea, vomiting, or diarrhea : No reports of dysuria or retention Neurovascular: reports of generalized weakness All medications have been reviewed PHYSICAL EXAMINATION: GENERAL: The patient is alert and oriented x3, anxious maintained on BiPAP. Well developed, well nourished. Elderly appearing, chronically ill-appearing, obese HEENT: Pupils are round and equally reacting to light. EOMI. No scleral icterus. No conjunctival pallor. Normocephalic, atraumatic. No pharyngeal erythema. No thyromegaly. CARDIOVASCULAR: S1 and S2 muffled PULMONARY: Diminished breath sounds bilaterally with some scattered expiratory wheezing and faint crackles noted at the bases. BiPAP noted ABDOMEN: Soft, nontender, nondistended, normoactive bowel sounds. No palpable organomegaly. MUSCULOSKELETAL: No joint swelling or deformity. EXTREMITIES: No cyanosis, clubbing, or pedal edema. NEUROLOGICAL: Gross neurological examination did not reveal any focal deficits. Diffusely weak SKIN: No rashes. Assessment: Shortness of breath with acute on chronic hypoxic respiratory failure secondary to COPD exacerbation Altered mentation on admission, likely metabolic encephalopathy secondary to significant hypoglycemia, improved and at baseline Elevated D-dimer, PE ruled out History of previous sputum culture with Pseudomonas and was maintained on Zerbaxa with infectious disease following for 10 days before discharge to [facility] History of MRSA in the sputum Continued ongoing nicotine dependence, patient has not smoked in 3 weeks due to hospitalization and being at [facility] THC use Severe anxiety/depression/bipolar disorder History of hyponatremia hypertension history History of chronic pain and fibromyalgia History of scoliosis Obesity with a BMI of 34.7 GI prophylaxis DVT prophylax Full code Plan: Patient was admitted and placed on BiPAP in the ER currently maintained on BiPAP with follow-up blood gases showing some improvements although recommend to continue with BiPAP as needed and transition to chronic 5 L Pulmonary following, will continue breathing treatments and Levaquin being discontinued 0.42. Monitor closely off antibiotic therapy. Home medications reviewed and resumed as appropriate Recommend to continue monitoring Accu-Cheks AC and at bedtime and will continue as needed sliding scale hold oral diabetic agents at this time. Follow-up on repeat labs. Replace electrolytes per protocol Recommend PT/OT therapy and case management consult with plans on returning to [facility] on discharge The impression and plan of care has been dictated by Audrey uCrtis, Nurse Practitioner as directed. Dr. Micky MD I have performed a history and examination and MDM of this patient, discussed the same with the dictator, and agree with the dictator's assessment and plan as written ,documented as a scribe. Based on total visit time, I have performed more than 50% of the visit. Objective - Vital Signs Vital signs: Vital Signs Temp 98.0 F 01/26/25 00:00 Pulse 62 01/26/25 00:00 Resp 11 L 01/26/25 00:00 BP 101/57 01/26/25 00:00 Pulse Ox 95 01/26/25 00:00 FiO2 50 01/26/25 04:22 Intake & Output 01/25/25 01/25/25 01/26/25 06:59 18:59 06:59 Intake Total 0 240 Output Total 900 875 Balance -900 -875 240 Weight 86 kg Intake: Oral 0 240 Output: Urine 900 875 Other: Voiding Method Indwelling Catheter Indwelling Catheter Indwelling Catheter - Labs CBC & Chem 7: 01/25/25 05:02 01/25/25 05:02 Labs: Abnormal Lab Results - Last 24 Hours (Table) 01/25/25 01/25/25 01/25/25 Range/Units 05:02 05:02 05:42 WBC 22.25 H (4.50-10.00) 10*3/uL RBC 3.05 L (4.10-5.20) 10*6/uL Hgb 9.3 L (12.0-15.0) g/dL Hct 29.6 L (37.2-46.3) % MCHC 31.4 L (32.0-37.0) g/dL MPV 9.2 L (9.5-12.2) fL Immature Gran # 0.59 H (0.00-0.04) 10*3/uL Neutrophils # 19.23 H (1.80-7.70) 10*3/uL Lymphocytes # 0.85 L (0.90-5.00) 10*3/uL Monocytes # 1.53 H (0.20-1.00) 10*3/uL Eosinophils # 0.00 L (0.04-0.35) 10*3/uL Sodium 128 L (137-145) mmol/L Chloride 85 L (98-107) mmol/L Carbon Dioxide 36 H (22-30) mmol/L BUN 23 H (7-17) mg/dL Glucose 207 H (74-99) mg/dL POC Glucose (mg/dL) 339 H (70-110) mg/dL Total Protein 4.8 L (6.3-8.2) g/dL Albumin 2.8 L (3.5-5.0) g/dL 01/25/25 01/25/25 01/25/25 Range/Units 07:55 09:55 11:50 WBC (4.50-10.00) 10*3/uL RBC (4.10-5.20) 10*6/uL Hgb (12.0-15.0) g/dL Hct (37.2-46.3) % MCHC (32.0-37.0) g/dL MPV (9.5-12.2) fL Immature Gran # (0.00-0.04) 10*3/uL Neutrophils # (1.80-7.70) 10*3/uL Lymphocytes # (0.90-5.00) 10*3/uL Monocytes # (0.20-1.00) 10*3/uL Eosinophils # (0.04-0.35) 10*3/uL Sodium (137-145) mmol/L Chloride (98-107) mmol/L Carbon Dioxide (22-30) mmol/L BUN (7-17) mg/dL Glucose (74-99) mg/dL POC Glucose (mg/dL) 184 H 197 H 150 H (70-110) mg/dL Total Protein (6.3-8.2) g/dL Albumin (3.5-5.0) g/dL 01/25/25 01/25/25 Range/Units 16:30 19:58 WBC (4.50-10.00) 10*3/uL RBC (4.10-5.20) 10*6/uL Hgb (12.0-15.0) g/dL Hct (37.2-46.3) % MCHC (32.0-37.0) g/dL MPV (9.5-12.2) fL Immature Gran # (0.00-0.04) 10*3/uL Neutrophils # (1.80-7.70) 10*3/uL Lymphocytes # (0.90-5.00) 10*3/uL Monocytes # (0.20-1.00) 10*3/uL Eosinophils # (0.04-0.35) 10*3/uL Sodium (137-145) mmol/L Chloride (98-107) mmol/L Carbon Dioxide (22-30) mmol/L BUN (7-17) mg/dL Glucose (74-99) mg/dL POC Glucose (mg/dL) 388 H 376 H (70-110) mg/dL Total Protein (6.3-8.2) g/dL Albumin (3.5-5.0) g/dL Microbiology - Last 24 Hours (Table) 01/25/25 11:49 Gram Stain - Preliminary Sputum 01/24/25 00:44 Blood Culture - Preliminary Blood
[2025-01-26 05:37] LABS: Glucose,Whole Blood 328 mg/dL (70-110)
[2025-01-26] MEDS: PANTOPRAZOLE 40 MG/10 ML VIAL IVP SCH (08:57)
[2025-01-26 09:32] LABS: African American GFR (CKD) >90 (>60 ml/min/1.73 sqM); Blood Urea Nitrogen 27 mg/dL (7-17); Calcium 9.8 mg/dL (8.4-10.2); Chloride 86 mmol/L (98-107); Glucose 247 mg/dL (74-99); Non-African American GFR(CKD) >90 (>60 ml/min/1.73 sqM); Potassium 4.9 mmol/L (3.5-5.1); Sodium 128 mmol/L (137-145)
[2025-01-26 09:38] LABS: Anion Gap 5 mmol/L
[2025-01-26 09:51] LABS: Carbon Dioxide 37 mmol/L (22-30)
[2025-01-26] MEDS: NON FORMULARY DRUG (Buprenorphine [Butrans 7.5 Mcg/Hr] 7.5 MCG/HOUR Patch) TRANSDERM SCH (11:13)
[2025-01-26 12:06] LABS: Glucose,Whole Blood 274 mg/dL (70-110)
--- NOTE | 2025-01-26 14:34 | P.PN ---
Subjective Progress Note Date: 01/26/25 Patient is a 69-year-old female with past medical history significant for COPD, chronic hypoxemic respiratory failure, chronic ongoing tobacco use, heart failure, pulmonary embolism, diabetes mellitus type II, hypothyroidism, gastric bypass. Patient recently discharged from hospital on 01/08/2025 to [facility] on the [place] for [place]. She was admitted with acute COPD exacerbation. Sputum culture was positive for multidrug-resistant Pseudomonas aeruginosa. She was treated with a 10-day course of Zerbaxa. Repeat sputum culture showing normal respiratory farooq. Also, previously MRSA was identified in the sputum back on Nov, 2024. Early this morning, patient brought in by [facility] She was noted to be confused at the outside facility. Also, having difficulty breathing. Pulse ox is reading low, around 60%, on 5 L/min nasal cannula. Patient was severel hypoglycemic on arrival with a blood glucose less than 20, and received multiple amps of D50 W and continued on a D5/0.9 saline infusion at 75 mm/h. She was on a sulfonylurea at the outside facility. An ABG was drawn consistent with acute on chronic hypercapnic and hypoxemic respiratory failure. She was placed on BiPAP in the ED. Brain CT did not show any acute intracranial hemorrhage, midline shift, or mass effect. Chest CT angiogram did not show any pulmonary embolism. Appears to be increased bibasilar airspace consolidations, consistent with multi lobar pneumonia and trace parapneumonic effusion. CBC with a WBC count of 22.79, hemoglobin 10, platelets 389. CMP: Sodium 128, potassium 5.1, chloride 87, serum bicarb 36, BUN 31, creatinine 0.44, blood glucose less than 20. LFTs mildly elevated. Lactic acid not elevated. Troponin less than 0.012. NT-proBNP 1250. Urinalysis unremarkable for infection. Most recent blood glucose 82. Currently being evaluated emergency department. She is on BiPAP with settings 16/6 and FiO2 70%. Nonlabored breathing. Achieving good tidal volumes. She is alert and oriented x 3. Does not call recall immediate events prior to hospitalization. No specific complaints at this time other than she would like a drink of water. Admits to occasional cough with phlegm. Denies any hemoptysis, pleurisy. No fevers or chills. Previously started on Levaquin. Denies any nausea, vomiting, diarrhea, abdominal pain. Appetite has been good. She does have a mild tremor, staff nurse is going to check her blood sugar which has been repetitively low. Recently started on D5W with 0.9 at 75 mL/h The patient is seen today January 25, 2025 in follow-up on the selective care unit. She is currently sitting up in bed. Awake and alert in no acute distress. Maintaining O2 saturations in the 90s on 5 L/min per nasal cannula. She is afebrile. Hemodynamically stable. White count 22.2. Hemoglobin 9.3. Platelets 300,000. Sodium 128. Potassium 4.6. Bicarb 36. BUN 23. Creatinine 0.55. Glucose 207. She remains on DuoNeb inhalations, Pulmicort and Perforomist inhalations, Solu-Medrol, Singulair. NicoDerm patch in place. Lovenox for DVT prophylaxis. Remains on antibiotics in the form of Levaquin. The patient is seen today January 26, 2025 in follow-up on the selective care unit. She is currently sitting up in bed. Awake and alert in no acute distress. She is maintained on BiPAP 16/6 and 50% FiO2. Her is at the bedside. Sputum cultures revealing presumptive Staph aureus. Blood culture showing no growth. Sodium 128. Potassium 4.9. Bicarb 37. BUN 27. Creatinine 0.66. Glucose 247. Calcium 9.8. She is continued on DuoNeb inhalations, Pulmicort an d performance inhalations, IV Solu-Medrol and Singulair. Lovenox for DVT prophylaxis. She remains on Levaquin. NicoDerm patch in place. Objective - Vital Signs Vital signs: Vital Signs Temp 97.9 F 01/26/25 04:00 Pulse 80 01/26/25 14:00 Resp 18 01/26/25 14:00 BP 139/73 01/26/25 12:00 Pulse Ox 79 L 01/26/25 12:26 FiO2 50 01/26/25 04:22 Intake & Output 01/25/25 01/26/25 01/26/25 18:59 06:59 18:59 Intake Total 0 240 340 Output Total 875 1600 1000 Balance -578 -6989 -483 Weight 86.5 kg Intake: Oral 0 240 340 Output: Urine 875 1600 1000 Other: Voiding Method Indwelling Catheter Indwelling Catheter Indwelling Catheter - Exam GENERAL EXAM: Alert, 69-year-old obese female, mild tremor, on BiPAP 16/6 and 50% FiO2, in no apparent distress. HEAD: Normocephalic and atraumatic EYES: Normal reaction of pupils, equal size. NOSE: Clear with pink turbinates. THROAT: No erythema or exudates. NECK: No masses, no JVD. CHEST: No chest wall deformity. LUNGS: Equal air entry with diminished bibasilar lung sounds. No wheezes, rhonc hi, crackles. Non labored breathing. CVS: S1 and S2 normal with no audible murmur, regular rhythm. No extra heart sounds ABDOMEN: No hepatosplenomegaly, active bowel sounds, no guarding or rigidity. SPINE: No scoliosis or deformity SKIN: No rashes CENTRAL NERVOUS SYSTEM: No focal deficits, tone is normal in all 4 extremities. EXTREMITIES: There is no peripheral edema, clubbing, or cyanosis. Peripheral pulses are intact. - Labs CBC & Chem 7: 01/25/25 05:02 01/26/25 08:48 Labs: Abnormal Lab Results - Last 24 Hours (Table) 01/25/25 01/25/25 01/26/25 Range/Units 16:30 19:58 05:36 Sodium (137-145) mmol/L Chloride (98-107) mmol/L Carbon Dioxide (22-30) mmol/L BUN (7-17) mg/dL Glucose (74-99) mg/dL POC Glucose (mg/dL) 388 H 376 H 328 H (70-110) mg/dL 01/26/25 01/26/25 Range/Units 08:48 12:02 Sodium 128 L (137-145) mmol/L Chloride 86 L (98-107) mmol/L Carbon Dioxide 37 H (22-30) mmol/L BUN 27 H (7-17) mg/dL Glucose 247 H (74-99) mg/dL POC Glucose (mg/dL) 274 H (70-110) mg/dL Microbiology - Last 24 Hours (Table) 01/24/25 00:44 Blood Culture - Preliminary Blood 01/25/25 11:49 Gram Stain - Preliminary Sputum Sputum Culture - Preliminary Presumptive Staph aureus Assessment and Plan Assessment: Acute COPD exacerbation Acute on chronic hypoxic and hypercapnic respiratory failure, secondary to above, repeat chest CT angiogram did not show any pulmonary embolism. Continues to show bibasilar airspace consolidations, which may be increased in my opinion, consistent with multi lobar pneumonia and trace parapneumonic effusion. Sputum cultures showing presumptive Staph aureus. Currently on Levaquin Severe hypoglycemia, previous on glimepiride which is on hold Altered mental status, secondary to above, improved Moderate fecal retention/constipation Sputum culture from 12/25/2024 positive for multidrug-resistant Pseudomonas aeruginosa, completed 10-day course of Zerbaxa. Repeat sputum culture showing normal respiratory farooq Sputum positive for MRSA 11/27/2024 Left hemidiaphragm elevation possible paralysis Chronic obstructive pulmonary disease, with an FEV1 64% predicted, Gold stage II Chronic hypoxemic respiratory failure, secondary to combination of above Hyponatremia Leukocytosis Chronic ongoing tobacco dependence Hypothyroidism Hypertension History of mediastinal lymphadenopathy History of gastric bypass surgery Bipolar disorder Fibromyalgia and chronic pain syndrome Plan: The patient was seen and evaluated Labs and medications reviewed Microbiology reviewed Sputum showing presumptive Staph aureus Continue on Levaquin for now Currently on BiPAP 16/6 and 50% FiO2 Titrate to nasal cannula as tolerated Continue DuoNeb inhalations Continue Pulmicort and Perforomist inhalations Continue Solu-Medrol Continue Singulair NicoDerm patch in place Lovenox for DVT prophylaxis We will continue to follow I have personally seen and examined the patient, performed the documentation and the assessment and plan as written. Number of minutes spent on the visit: 10 Dictation was produced using Echo360 dictation software. Please excuse any grammatical, word or spelling errors.
[2025-01-26 16:37] LABS: Glucose,Whole Blood 335 mg/dL (70-110)
--- NOTE | 2025-01-26 19:26 | P.PN ---
Subjective Progress Note Date: 01/26/25 This is a pleasant 69-year-old female who presented to the emergency department via EMS from [facility] where patient was at for continued PT/OT therapy from previous admission with significant weakness. Patient was found to be altered and more confused and hypoxic, maintained on chronic 4 to 5 L and having increasing shortness of breath. Patient was sent to the ER for further evaluation. Patient was placed on BiPAP with concerns of possible pneumonia. Patient had extensive pneumonia with positive sputum cultures and previous admission with infectious disease following and had been maintained on prolonged antibiotics. Patient was started on Levaquin by the ER. Chest x-ray on admission shows patchy bilateral airspace consolidations in the perihilar and lung bases consistent with multilobar pneumonia as well as small bilateral effusions noted. CT brain was performed showing no acute intracranial hemorrhage midline shift or mass effect. D-dimer was mildly elevated and patient did undergo CTA which shows no evidence of PE. Patient also underwent CT abdomen pelvis showing some moderate fecal retention correlate for constipation and was started on a bowel regimen. Patient follows with Dr. Wheeler in the outpatient setting, heart failure, asthma, fibromyalgia, GERD, hypertension, osteoarthritis, previous pulmonary embolus back and neck pain with spinal stenosis and cervical disc, scoliosis, significant anxiety, continued ongoing nicotine use, and THC use. Labs revealed a white count of 22.79, platelets 389, D-dimer minimally elevated at 0.73, sodium 128 with a potassium of 5.1, BUN is 31 and creatinine is 0.44 blood sugar was checked and found to be extremely low and treated. Troponin was negative and BNP was 1250. Procalcitonin ordered and pending at this time. Patient had been maintained on continued prednisone taper from previous discharge as well as [id number] breathing treatments. Patient was admitted to the hospital for acute on chronic hypoxic respiratory failure requiring BiPAP exacerbation and concerns of possible multilobar pneumonia. After review of previous admission imaging, opacities and infiltrates appear to be the same. Patient will be continued on BiPAP and wean as tolerated as patient chronically wears 5 L outpatient. Pulmonary consulted as well. Patient was started on Levaquin and breathing treatments and will review and resume appropriate medications once verified. Continue monitoring Accu-Cheks closely. 01/25/2025 Patient seen and evaluated in follow-up this morning continues on BiPAP with extreme anxiety recommend weaning and transitioning to chronic 5 L via nasal cannula. Pulmonary is following maintained on IV steroids along with breathing treatments and Levaquin. Procalcitonin 0.42 and antibiotics being discontinued per pulmonary. Recommend PT/OT therapy evaluation as plan will be to return to [facility] on discharge for continued strength and mobility. Encourage increased activity as tolerated. Mentation is baseline and patient continues to be extremely anxious. Medications adjusted. 01/26/2025 Patient is seen in follow-up today currently off the BiPAP on 5 L and tolerating. Patient is using BiPAP at night and will plan for return to [facility] with BiPAP from 8 PM until 8 AM. Patient is continued on IV steroids and will decrease to 40 mg twice daily. Patient is continued on [id number] breathing treatments and will continue. Pulmonary following and also continued on Levaquin daily. Preliminary sputum culture showing presumptive staph and patient has recently had multiple positive sputum cultures for Pseudomonas and Sabrina and MRSA. Patient to be evaluated by PT/OT therapy today as plan is to return to [facility] for continued strength and mobility. Case management following and has been instructed to submit for insurance authorization which is pending. Follow-up on sputum cultures and continue current regimen with possible discharge planning in the next 24 hours. Patient is extremely high risk for readmission and has had multiple hospitalizations. Will reassess in the a.m. and await pulmonary clearance to determine discharge planning. Review of systems: Constitutional: No reports of fatigue, fever, or chills, reports continued extreme anxiety Cardiovascular: No reports of chest pain or palpitations Respiratory: reports of continued shortness of breath and occasional cough GI: No reports of nausea, vomiting, or diarrhea : No reports of dysuria or retention Neurovascular: reports of generalized weakness All medications have been reviewed PHYSICAL EXAMINATION: GENERAL: The patient is alert and oriented x3, anxious . Well developed, well nourished. Elderly appearing, chronically ill-appearing, obese HEENT: Pupils are round and equally reacting to light. EOMI. No scleral icterus. No conjunctival pallor. Normocephalic, atraumatic. No pharyngeal erythema. No thyromegaly. CARDIOVASCULAR: S1 and S2 muffled PULMONARY: Diminished breath sounds bilaterally with some scattered expiratory wheezing and faint crackles noted at the bases. Currently on 5 L ABDOMEN: Soft, obese nontender, nondistended, normoactive bowel sounds. No palpable organomegaly. MUSCULOSKELETAL: No joint swelling or deformity. EXTREMITIES: No cyanosis, clubbing, or pedal edema. NEUROLOGICAL: Gross neurological examination did not reveal any focal deficits. Diffusely weak SKIN: No rashes. Assessment: Shortness of breath with acute on chronic hypoxic respiratory failure secondary to COPD exacerbation Altered mentation on admission, likely metabolic encephalopathy secondary to significant hypoglycemia, improved and at baseline Elevated D-dimer, PE ruled out History of previous sputum culture with Pseudomonas and was maintained on Zerbaxa with infectious disease following for 10 days before discharge to [facility], preliminary sputum cultures from 01/25/2025 showing presumptive Staph aureus History of MRSA in the sputum Continued ongoing nicotine dependence, patient has not smoked in 3 weeks due to hospitalization and being at [facility] THC use Severe anxiety/depression/bipolar disorder History of hyponatremia hypertension history History of chronic pain and fibromyalgia History of scoliosis Obesity with a BMI of 34.7 GI prophylaxis DVT prophylax Full code Plan: Patient was admitted and placed on BiPAP in the ER currently maintained on BiPAP intermittently at night and is now continued on chronic 5 L Pulmonary following, will continue breathing treatments and Levaquin is preliminary sputum culture showing presumptive staph Home medications reviewed and resumed as appropriate Recommend to continue monitoring Accu-Cheks AC and at bedtime and will continue as needed sliding scale hold oral diabetic agents at this time. Follow-up on repeat labs. Replace electrolytes per protocol PT/OT therapy to evaluate for updated notes as case management is working on discharge planning with plans on returning to [facility] on discharge. Discussed with case management as patient would benefit from BiPAP and patient currently has an FiO2 of 50% and PEEP is 5. Making arrangements for discharge planning for patient to continue with as needed DuoNebs as well as treatment plan moving forward. Possible discharge planning in the next 24 hours to [facility]. Currently awaiting sputum cultures continue Levaquin for now The impression and plan of care has been dictated by Audrey Curtis, Nurse Practitioner as directed. Dr. Micky MD I have performed a history and examination and MDM of this patient, discussed the same with the dictator, and agree with the dictator's assessment and plan as written ,documented as a scribe. Based on total visit time, I have performed more than 50% of the visit. Objective - Vital Signs Vital signs: Vital Signs Temp 98.0 F 01/26/25 00:00 Pulse 62 01/26/25 00:00 Resp 11 L 01/26/25 00:00 BP 101/57 01/26/25 00:00 Pulse Ox 95 01/26/25 00:00 FiO2 50 01/26/25 04:22 Intake & Output 01/25/25 01/25/25 01/26/25 06:59 18:59 06:59 Intake Total 0 240 Output Total 900 875 Balance -900 -875 240 Weight 86 kg Intake: Oral 0 240 Output: Urine 900 875 Other: Voiding Method Indwelling Catheter Indwelling Catheter Indwelling Catheter - Labs CBC & Chem 7: 01/25/25 05:02 01/26/25 08:48 Labs: Abnormal Lab Results - Last 24 Hours (Table) 01/25/25 01/25/25 01/25/25 Range/Units 05:02 05:02 05:42 WBC 22.25 H (4.50-10.00) 10*3/uL RBC 3.05 L (4.10-5.20) 10*6/uL Hgb 9.3 L (12.0-15.0) g/dL Hct 29.6 L (37.2-46.3) % MCHC 31.4 L (32.0-37.0) g/dL MPV 9.2 L (9.5-12.2) fL Immature Gran # 0.59 H (0.00-0.04) 10*3/uL Neutrophils # 19.23 H (1.80-7.70) 10*3/uL Lymphocytes # 0.85 L (0.90-5.00) 10*3/uL Monocytes # 1.53 H (0.20-1.00) 10*3/uL Eosinophils # 0.00 L (0.04-0.35) 10*3/uL Sodium 128 L (137-145) mmol/L Chloride 85 L (98-107) mmol/L Carbon Dioxide 36 H (22-30) mmol/L BUN 23 H (7-17) mg/dL Glucose 207 H (74-99) mg/dL POC Glucose (mg/dL) 339 H (70-110) mg/dL Total Protein 4.8 L (6.3-8.2) g/dL Albumin 2.8 L (3.5-5.0) g/dL 07/05/1201/25/25 01/25/25 Range/Units 07:55 09:55 11:50 WBC (4.50-10.00) 10*3/uL RBC (4.10-5.20) 10*6/uL Hgb (12.0-15.0) g/dL Hct (37.2-46.3) % MCHC (32.0-37.0) g/dL MPV (9.5-12.2) fL Immature Gran # (0.00-0.04) 10*3/uL Neutrophils # (1.80-7.70) 10*3/uL Lymphocytes # (0.90-5.00) 10*3/uL Monocytes # (0.20-1.00) 10*3/uL Eosinophils # (0.04-0.35) 10*3/uL Sodium (137-145) mmol/L Chloride (98-107) mmol/L Carbon Dioxide (22-30) mmol/L BUN (7-17) mg/dL Glucose (74-99) mg/dL POC Glucose (mg/dL) 184 H 197 H 150 H (70-110) mg/dL Total Protein (6.3-8.2) g/dL Albumin (3.5-5.0) g/dL 01/25/25 01/25/25 Range/Units 16:30 19:58 WBC (4.50-10.00) 10*3/uL RBC (4.10-5.20) 10*6/uL Hgb (12.0-15.0) g/dL Hct (37.2-46.3) % MCHC (32.0-37.0) g/dL MPV (9.5-12.2) fL Immature Gran # (0.00-0.04) 10*3/uL Neutrophils # (1.80-7.70) 10*3/uL Lymphocytes # (0.90-5.00) 10*3/uL Monocytes # (0.20-1.00) 10*3/uL Eosinophils # (0.04-0.35) 10*3/uL Sodium (137-145) mmol/L Chloride (98-107) mmol/L Carbon Dioxide (22-30) mmol/L BUN (7-17) mg/dL Glucose (74-99) mg/dL POC Glucose (mg/dL) 388 H 376 H (70-110) mg/dL Total Protein (6.3-8.2) g/dL Albumin (3.5-5.0) g/dL Microbiology - Last 24 Hours (Table) 01/25/25 11:49 Gram Stain - Preliminary Sputum 01/24/25 00:44 Blood Culture - Preliminary Blood
[2025-01-26 20:31] LABS: Glucose,Whole Blood 321 mg/dL (70-110)
[2025-01-26] MEDS: methylPREDNISolone SOD SUCCI 40 MG/ML 1 ML VIAL IV SCH (20:47)
[2025-01-27 02:19] LABS: Glucose,Whole Blood 191 mg/dL (70-110)
[2025-01-27 05:42] LABS: Glucose,Whole Blood 149 mg/dL (70-110)
[2025-01-27 06:49] LABS: African American GFR (CKD) >90 (>60 ml/min/1.73 sqM); Blood Urea Nitrogen 32 mg/dL (7-17); Calcium 9.7 mg/dL (8.4-10.2); Chloride 86 mmol/L (98-107); Glucose 129 mg/dL (74-99); Non-African American GFR(CKD) >90 (>60 ml/min/1.73 sqM); Potassium 5.6 mmol/L (3.5-5.1); Sodium 129 mmol/L (137-145)
[2025-01-27 07:17] LABS: Anion Gap 4 mmol/L; Carbon Dioxide 39 mmol/L (22-30)
[2025-01-27 10:28] LABS: Basophils # (A) 0.07 10*3/uL (0.00-0.10); Basophils % (A) 0.3 %; Eosinophils # (A) 0.00 10*3/uL (0.04-0.35); Eosinophils % (A) 0.0 %; HCT 33.6 % (37.2-46.3); HGB 10.3 g/dL (12.0-15.0); Lymphocytes # (A) 0.79 10*3/uL (0.90-5.00); Lymphocytes % (A) 3.0 %; MCH 30.6 pg (27.0-32.0); MCHC 30.7 g/dL (32.0-37.0); MCV 99.7 fL (80.0-97.0); Monocytes # (A) 2.31 10*3/uL (0.20-1.00); Monocytes % (A) 8.6 %; Neutrophils # (A) 23.36 10*3/uL (1.80-7.70); Neutrophils % (A) 87.3 %; Platelet Count 298 10*3/uL (140-440); RBC 3.37 10*6/uL (4.10-5.20); RDW 13.9 % (11.5-14.5); WBC 26.75 10*3/uL (4.50-10.00)
[2025-01-27 11:18] LABS: Glucose,Whole Blood 99 mg/dL (70-110)
[2025-01-27] MEDS ORDERED: VANCOMYCIN IV PER PHARMACY 1 EACH MISC MISCELLANE PRN (11:25)
--- NOTE | 2025-01-27 11:25 | P.PN ---
Subjective Progress Note Date: 01/27/25 Patient is a 69-year-old female with past medical history significant for COPD, chronic hypoxemic respiratory failure, chronic ongoing tobacco use, heart failure, pulmonary embolism, diabetes mellitus type II, hypothyroidism, gastric bypass. Patient recently discharged from hospital on 01/08/2025 to [facility] the [place] for rehab. She was admitted with acute COPD exacerbation. Sputum culture was positive for multidrug-resistant Pseudomonas aeruginosa. She was treated with a 10-day course of Zerbaxa. Repeat sputum culture showing normal respiratory farooq. Also, previously MRSA was identified in the sputum back on Nov, 2024. Early this morning, patient brought in by EMS from the [facility]. She was noted to be confused at the outside facility. Also, having difficulty breathing. Pulse ox is reading low, around 60%, on 5 L/min nasal cannula. Patient was severel hypoglycemic on arrival with a blood glucose less than 20, and received multiple amps of D50 W and continued on a D5/0.9 saline infusion at 75 mm/h. She was on a sulfonylurea at the outside facility. An ABG was drawn consistent with acute on chronic hypercapnic and hypoxemic respiratory failure. She was placed on BiPAP in the ED. Brain CT did not show any acute intracranial hemorrhage, midline shift, or mass effect. Chest CT angiogram did not show any pulmonary embolism. Appears to be increased bibasilar airspace consolidations, consistent with multi lobar pneumonia and trace parapneumonic effusion. CBC with a WBC count of 22.79, hemoglobin 10, platelets 389. CMP: Sodium 128, potassium 5.1, chloride 87, serum bicarb 36, BUN 31, creatinine 0.44, blood glucose less than 20. LFTs mildly elevated. Lactic acid not elevated. Troponin less than 0.012. NT-proBNP 1250. Urinalysis unremarkable for infection. Most recent blood glucose 82. Currently being evaluated emergency department. She is on BiPAP with settings 16/6 and FiO2 70%. Nonlabored breathing. Achieving good tidal volumes. She is alert and oriented x 3. Does not call recall immediate events prior to hospitalization. No specific complaints at this time other than she would like a drink of water. Admits to occasional cough with phlegm. Denies any hemoptysis, pleurisy. No fevers or chills. Previously started on Levaquin. Denies any nausea, vomiting, diarrhea, abdominal pain. Appetite has been good. She does have a mild tremor, staff nurse is going to check her blood sugar which has been repetitively low. Recently started on D5W with 0.9 at 75 mL/h The patient is seen today January 25, 2025 in follow-up on the selective care unit. She is currently sitting up in bed. Awake and alert in no acute distress. Maintaining O2 saturations in the 90s on 5 L/min per nasal cannula. She is afebrile. Hemodynamically stable. White count 22.2. Hemoglobin 9.3. Platelets 300,000. Sodium 128. Potassium 4.6. Bicarb 36. BUN 23. Creatinine 0.55. Glucose 207. She remains on DuoNeb inhalations, Pulmicort and Perforomist inhalations, Solu-Medrol, Singulair. NicoDerm patch in place. Lovenox for DVT prophylaxis. Remains on antibiotics in the form of Levaquin. The patient is seen today January 26, 2025 in follow-up on the selective care unit. She is currently sitting up in bed. Awake and alert in no acute distress. She is maintained on BiPAP 16/6 and 50% FiO2. Her is at the bedside. Sputum cultures revealing presumptive Staph aureus. Blood culture showing no growth. Sodium 128. Potassium 4.9. Bicarb 37. BUN 27. Creatinine 0.66. Glucose 247. Calcium 9.8. She is continued on DuoNeb inhalations, Pulmicort an d performance inhalations, IV Solu-Medrol and Singulair. Lovenox for DVT prophylaxis. She remains on Levaquin. NicoDerm patch in place. The patient is seen today January 27, 2025 in follow-up on the selective care unit. She is awake and alert in no acute distress. Currently maintaining O2 saturat ions in the high 80s and low 90s on 5 L/min per nasal cannula. Sputum cultures positive for MRSA. Blood culture revealing no growth. White count 26.7. Hemoglobin 10.3. Platelets 298. Sodium 129. Potassium 5.6. Bicarb 39. BUN 32. Creatinine 0.55. Glucose 129. She remains on DuoNeb inhalations, Pulmicort and Perforomist inhalations, IV Solu-Medrol. Remains on Singulair. NicoDerm patch in place. Lovenox for DVT prophylaxis. She remains on antibiotics in the form of Levaquin. Objective - Vital Signs Vital signs: Vital Signs Temp 98.4 F 01/27/25 08:45 Pulse 86 01/27/25 09:52 Resp 19 01/27/25 08:45 BP 137/76 01/27/25 08:45 Pulse Ox 88 L 01/27/25 09:27 FiO2 50 01/27/25 03:33 Intake & Output 01/26/25 01/27/25 01/27/25 18:59 06:59 18:59 Intake Total 562 0 Output Total 1825 300 Balance -1263 -300 0 Weight 86.5 kg Intake: Oral 562 0 Output: Urine 1825 300 Uretheral (Husain) 300 Other: Voiding Method Indwelling Catheter Indwelling Catheter Indwelling Catheter # Voids 1 - Exam GENERAL EXAM: Alert, 69-year-old obese female, mild tremor, on 5 L nasal cannula, in no apparent distress. HEAD: Normocephalic and atraumatic EYES: Normal reaction of pupils, equal size. NOSE: Clear with pink turbinates. THROAT: No erythema or exudates. NECK: No masses, no JVD. CHEST: No chest wall deformity. LUNGS: Equal air entry with diminished bibasilar lung sounds. Few scattered rhonchi. CVS: S1 and S2 normal with no audible murmur, regular rhythm. No extra heart sounds ABDOMEN: No hepatosplenomegaly, active bowel sounds, no guarding or rigidity. SPINE: No scoliosis or deformity SKIN: No rashes CENTRAL NERVOUS SYSTEM: No focal deficits, tone is normal in all 4 extremities. EXTREMITIES: There is no peripheral edema, clubbing, or cyanosis. Peripheral pulses are intact. - Labs CBC & Chem 7: 01/27/25 05:55 01/27/25 05:55 Labs: Abnormal Lab Results - Last 24 Hours (Table) 01/26/25 01/26/25 01/26/25 Range/Units 12:02 16:35 20:28 WBC (4.50-10.00) 10*3/uL RBC (4.10-5.20) 10*6/uL Hgb (12.0-15.0) g/dL Hct (37.2-46.3) % MCV (80.0-97.0) fL MCHC (32.0-37.0) g/dL Immature Gran # (0.00-0.04) 10*3/uL Neutrophils # (1.80-7.70) 10*3/uL Lymphocytes # (0.90-5.00) 10*3/uL Monocytes # (0.20-1.00) 10*3/uL Eosinophils # (0.04-0.35) 10*3/uL Sodium (137-145) mmol/L Potassium (3.5-5.1) mmol/L Chloride (98-107) mmol/L Carbon Dioxide (22-30) mmol/L BUN (7-17) mg/dL Glucose (74-99) mg/dL POC Glucose (mg/dL) 274 H 335 H 321 H (70-110) mg/dL 01/27/25 01/27/25 01/27/25 Range/Units 02:18 05:35 05:55 WBC (4.50-10.00) 10*3/uL RBC (4.10-5.20) 10*6/uL Hgb (12.0-15.0) g/dL Hct (37.2-46.3) % MCV (80.0-97.0) fL MCHC (32.0-37.0) g/dL Immature Gran # (0.00-0.04) 10*3/uL Neutrophils # (1.80-7.70) 10*3/uL Lymphocytes # (0.90-5.00) 10*3/uL Monocytes # (0.20-1.00) 10*3/uL Eosinophils # (0.04-0.35) 10*3/uL Sodium 129 L (137-145) mmol/L Potassium 5.6 H (3.5-5.1) mmol/L Chloride 86 L (98-107) mmol/L Carbon Dioxide 39 H (22-30) mmol/L BUN 32 H (7-17) mg/dL Glucose 129 H (74-99) mg/dL POC Glucose (mg/dL) 191 H 149 H (70-110) mg/dL 01/27/25 Range/Units 05:55 WBC 26.75 H (4.50-10.00) 10*3/uL RBC 3.37 L (4.10-5.20) 10*6/uL Hgb 10.3 L (12.0-15.0) g/dL Hct 33.6 L (37.2-46.3) % MCV 99.7 H (80.0-97.0) fL MCHC 30.7 L (32.0-37.0) g/dL Immature Gran # 0.22 H (0.00-0.04) 10*3/uL Neutrophils # 23.36 H (1.80-7.70) 10*3/uL Lymphocytes # 0.79 L (0.90-5.00) 10*3/uL Monocytes # 2.31 H (0.20-1.00) 10*3/uL Eosinophils # 0.00 L (0.04-0.35) 10*3/uL Sodium (137-145) mmol/L Potassium (3.5-5.1) mmol/L Chloride (98-107) mmol/L Carbon Dioxide (22-30) mmol/L BUN (7-17) mg/dL Glucose (74-99) mg/dL POC Glucose (mg/dL) (70-110) mg/dL Microbiology - Last 24 Hours (Table) 01/25/25 11:49 Gram Stain - Final Sputum Sputum Culture - Final Methicillin resist S. aureus 01/24/25 00:44 Blood Culture - Preliminary Blood Assessment and Plan Assessment: Acute COPD exacerbation Acute on chronic hypoxic and hypercapnic respiratory failure, secondary to above, repeat chest CT angiogram did not show any pulmonary embolism. Continues to show bibasilar airspace consolidations, which may be increased in my opinion, consistent with multi lobar pneumonia and trace parapneumonic effusion. Sputum cultures also did for MRSA Severe hypoglycemia, previous on glimepiride which is on hold Altered mental status, secondary to above, improved Moderate fecal retention/constipation Sputum culture from 12/25/2024 positive for multidrug-resistant Pseudomonas aeruginosa, completed 10-day course of Zerbaxa. Repeat sputum culture showing normal respiratory farooq Sputum positive for MRSA 11/27/2024 Left hemidiaphragm elevation possible paralysis Chronic obstructive pulmonary disease, with an FEV1 64% predicted, Gold stage II Chronic hypoxemic respiratory failure, secondary to combination of above Hyponatremia Leukocytosis Chronic ongoing tobacco dependence Hypothyroidism Hypertension History of mediastinal lymphadenopathy History of gastric bypass surgery Bipolar disorder Fibromyalgia and chronic pain syndrome Plan: The patient was seen and evaluated Labs and medications reviewed Microbiology reviewed Sputum culture positive for MRSA Discontinue Levaquin Initiate vancomycin Currently on liters per minute per nasal cannula Continue DuoNeb inhalations Continue Pulmicort and Perforomist inhalations Continue Solu-Medrol Continue Singulair NicoDerm patch in place Lovenox for DVT prophylaxis We will continue to follow I have personally seen and examined the patient, performed the documentation and the assessment and plan as written. Number of minutes spent on the visit: 10 Dictation was produced using [employer] dictation software. Please excuse any grammatical, word or spelling errors.
[2025-01-27] MEDS: SODIUM ZIRCONIUM CYCLOSILICATE 10 GM PACKET PO SCH (11:54)
[2025-01-27] MEDS: VANCOMYCIN 1,500 MG in SODIUM CHLORIDE 0.9% 500 ML 500 ML IVPB SCH (15:43)
[2025-01-27 16:07] LABS: Glucose,Whole Blood 167 mg/dL (70-110)
[2025-01-27 19:51] LABS: Glucose,Whole Blood 121 mg/dL (70-110)
--- NOTE | 2025-01-27 22:18 | P.PN ---
Subjective Progress Note Date: 01/27/25 This is a pleasant 69-year-old female who presented to the emergency department via EMS from [facility] where patient was at for continued PT/OT therapy from previous admission with significant weakness. Patient was found to be altered and more confused and hypoxic, maintained on chronic 4 to 5 L and having increasing shortness of breath. Patient was sent to the ER for further evaluation. Patient was placed on BiPAP with concerns of possible pneumonia. Patient had extensive pneumonia with positive sputum cultures and previous admission with infectious disease following and had been maintained on prolonged antibiotics. Patient was started on Levaquin by the ER. Chest x-ray on admission shows patchy bilateral airspace consolidations in the perihilar and lung bases consistent with multilobar pneumonia as well as small bilateral effusions noted. CT brain was performed showing no acute intracranial hemorrhage midline shift or mass effect. D-dimer was mildly elevated and patient did undergo CTA which shows no evidence of PE. Patient also underwent CT abdomen pelvis showing some moderate fecal retention correlate for constipation and was started on a bowel regimen. Patient follows with Dr. Wheeler in the outpatient setting, heart failure, asthma, fibromyalgia, GERD, hypertension, osteoarthritis, previous pulmonary embolus back and neck pain with spinal stenosis and cervical disc, scoliosis, significant anxiety, continued ongoing nicotine use, and THC use. Labs revealed a white count of 22.79, platelets 389, D-dimer minimally elevated at 0.73, sodium 128 with a potassium of 5.1, BUN is 31 and creatinine is 0.44 blood sugar was checked and found to be extremely low and treated. Troponin was negative and BNP was 1250. Procalcitonin ordered and pending at this time. Patient had been maintained on continued prednisone taper from previous discharge as well as [id number] breathing treatments. Patient was admitted to the hospital for acute on chronic hypoxic respiratory failure requiring BiPAP exacerbation and concerns of possible multilobar pneumonia. After review of previous admission imaging, opacities and infiltrates appear to be the same. Patient will be continued on BiPAP and wean as tolerated as patient chronically wears 5 L outpatient. Pulmonary consulted as well. Patient was started on Levaquin and breathing treatments and will review and resume appropriate medications once verified. Continue monitoring Accu-Cheks closely. 01/25/2025 Patient seen and evaluated in follow-up this morning continues on BiPAP with extreme anxiety recommend weaning and transitioning to chronic 5 L via nasal cannula. Pulmonary is following maintained on IV steroids along with breathing treatments and Levaquin. Procalcitonin 0.42 and antibiotics being discontinued per pulmonary. Recommend PT/OT therapy evaluation as plan will be to return to [facility] on discharge for continued strength and mobility. Encourage increased activity as tolerated. Mentation is baseline and patient continues to be extremely anxious. Medications adjusted. 01/26/2025 Patient is seen in follow-up today currently off the BiPAP on 5 L and tolerating. Patient is using BiPAP at night and will plan for return to [facility] with BiPAP from 8 PM until 8 AM. Patient is continued on IV steroids and will decrease to 40 mg twice daily. Patient is continued on [id number] breathing treatments and will continue. Pulmonary following and also continued on Levaquin daily. Preliminary sputum culture showing presumptive staph and patient has recently had multiple positive sputum cultures for Pseudomonas and Sabrina and MRSA. Patient to be evaluated by PT/OT therapy today as plan is to return to [facility] for continued strength and mobility. Case management following and has been instructed to submit for insurance authorization which is pending. Follow-up on sputum cultures and continue current regimen with possible discharge planning in the next 24 hours. Patient is extremely high risk for readmission and has had multiple hospitalizations. Will reassess in the a.m. and await pulmonary clearance to determine discharge planning. 01/27/2025 Patient evaluated in follow up on the cardiac unit. Currently on oxygen via nasal cannula at 6L. Continues with productive cough with large amounts of thick brown/green sputum. Patients sputum culture has now come back positive for MRSA. ID was consulted for further management of antibiotic therapy. Remains on IV zerbaxa. Patient is not ready for return to [facility]. Today WBC is up to 26.75, hemoglobin 10.3, sodium 29, potassium 5.6, BUN 32, creatinine 0.55. Potassium better at 4.6 after treatment with lokelma. Review of systems: Constitutional: No reports of fatigue, fever, or chills, reports continued extreme anxiety Cardiovascular: No reports of chest pain or palpitations Respiratory: reports of continued shortness of breath and occasional cough GI: No reports of nausea, vomiting, or diarrhea : No reports of dysuria or retention Neurovascular: reports of generalized weakness All medications have been reviewed PHYSICAL EXAMINATION: GENERAL: The patient is alert and oriented x3, anxious . Well developed, well nourished. Elderly appearing, chronically ill-appearing, obese HEENT: Pupils are round and equally reacting to light. EOMI. No scleral icterus. No conjunctival pallor. Normocephalic, atraumatic. No pharyngeal erythema. No thyromegaly. CARDIOVASCULAR: S1 and S2 muffled PULMONARY: Diminished breath sounds bilaterally with some scattered expiratory wheezing and faint crackles noted at the bases. Currently on 5 L. Coarse ronchi. ABDOMEN: Soft, obese nontender, nondistended, normoactive bowel sounds. No palpable organomegaly. MUSCULOSKELETAL: No joint swelling or deformity. EXTREMITIES: No cyanosis, clubbing, or pedal edema. NEUROLOGICAL: Gross neurological examination did not reveal any focal deficits. Diffusely weak SKIN: No rashes. Assessment: Shortness of breath with acute on chronic hypoxic respiratory failure secondary to COPD exacerbation Altered mentation on admission, likely metabolic encephalopathy secondary to significant hypoglycemia, improved and at baseline Elevated D-dimer, PE ruled out History of previous sputum culture with Pseudomonas and was maintained on Zerbaxa with infectious disease following for 10 days before discharge to [facility] History of MRSA in the sputum with repeat sputum this admission from 01/25/2025 revealing MRSA Continued ongoing nicotine dependence, patient has not smoked in 3 weeks due to hospitalization and being at [facility] THC use Severe anxiety/depression/bipolar disorder History of hyponatremia hypertension history History of chronic pain and fibromyalgia History of scoliosis Obesity with a BMI of 34.7 GI prophylaxis DVT prophylax Full code Plan: Patient was admitted and placed on BiPAP in the ER currently maintained on BiPAP intermittently at night and is now continued on chronic 5 L; currently saturations are marginal and today has been weaned to 6L of oxygen via nasal cannula. Pulmonary following Levaquin has been discontinued and antibiotics changed to IV vancomycin as sputum has come back revealing MRSA Continue duasaelbs ID was consulted. Home medications reviewed and resumed as appropriate Recommend to continue monitoring Accu-Cheks AC and at bedtime and will continue as needed sliding scale hold oral diabetic agents at this time. Follow-up on repeat labs. Replace electrolytes per protocol PT/OT therapy to evaluate for updated notes as case management is working on discharge planning with plans on returning to [facility] on discharge. Discussed with case management as patient would benefit from BiPAP and patient currently has an FiO2 of 50% and PEEP is 5. Patient will be discharged to [facility] for continued physical therapy once cleared by consultations The impression and plan of care has been dictated by Casandra Jimenez Nurse Practitioner as directed. Dr. Micky MD I have performed a history and examination and MDM of this patient, discussed the same with the dictator, and agree with the dictator's assessment and plan as written ,documented as a scribe. Based on total visit time, I have performed more than 50% of the visit. Objective - Vital Signs Vital signs: Vital Signs Temp 98.7 F 01/27/25 11:48 Pulse 83 01/27/25 14:10 Resp 20 01/27/25 14:10 BP 121/66 01/27/25 11:48 Pulse Ox 91 L 01/27/25 12:34 FiO2 50 01/27/25 12:34 Intake & Output 01/26/25 01/27/25 01/27/25 18:59 06:59 18:59 Intake Total 562 240 Output Total 1825 300 Balance -1263 -300 240 Weight 86.5 kg Intake: Oral 562 240 Output: Urine 1825 300 Uretheral (Husain) 300 Other: Voiding Method Indwelling Catheter Indwelling Catheter Indwelling Catheter # Voids 1 - Labs CBC & Chem 7: 01/27/25 05:55 01/27/25 14:08 Labs: Abnormal Lab Results - Last 24 Hours (Table) 01/26/25 01/26/25 01/27/25 Range/Units 16:35 20:28 02:18 WBC (4.50-10.00) 10*3/uL RBC (4.10-5.20) 10*6/uL Hgb (12.0-15.0) g/dL Hct (37.2-46.3) % MCV (80.0-97.0) fL MCHC (32.0-37.0) g/dL Immature Gran # (0.00-0.04) 10*3/uL Neutrophils # (1.80-7.70) 10*3/uL Lymphocytes # (0.90-5.00) 10*3/uL Monocytes # (0.20-1.00) 10*3/uL Eosinophils # (0.04-0.35) 10*3/uL Sodium (137-145) mmol/L Potassium (3.5-5.1) mmol/L Chloride (98-107) mmol/L Carbon Dioxide (22-30) mmol/L BUN (7-17) mg/dL Glucose (74-99) mg/dL POC Glucose (mg/dL) 335 H 321 H 191 H (70-110) mg/dL 01/27/25 01/27/25 01/27/25 Range/Units 05:35 05:55 05:55 WBC 26.75 H (4.50-10.00) 10*3/uL RBC 3.37 L (4.10-5.20) 10*6/uL Hgb 10.3 L (12.0-15.0) g/dL Hct 33.6 L (37.2-46.3) % MCV 99.7 H (80.0-97.0) fL MCHC 30.7 L (32.0-37.0) g/dL Immature Gran # 0.22 H (0.00-0.04) 10*3/uL Neutrophils # 23.36 H (1.80-7.70) 10*3/uL Lymphocytes # 0.79 L (0.90-5.00) 10*3/uL Monocytes # 2.31 H (0.20-1.00) 10*3/uL Eosinophils # 0.00 L (0.04-0.35) 10*3/uL Sodium 129 L (137-145) mmol/L Potassium 5.6 H (3.5-5.1) mmol/L Chloride 86 L (98-107) mmol/L Carbon Dioxide 39 H (22-30) mmol/L BUN 32 H (7-17) mg/dL Glucose 129 H (74-99) mg/dL POC Glucose (mg/dL) 149 H (70-110) mg/dL Microbiology - Last 24 Hours (Table) 01/24/25 00:44 Blood Culture - Preliminary Blood 01/25/25 11:49 Gram Stain - Final Sputum Sputum Culture - Final Methicillin resist S. aureus Assessment and Plan Time with Patient: Less than 30
--- NOTE | 2025-01-27 22:23 | P.CONS ---
History of Present Illness - Reason for Consult Consult date: 01/27/25 MRSA pneumonia Requesting physician: Casandra Jimenez - Chief Complaint Shortness of breath and cough x few days - History of Present Illness Patient is a 69-year-old female with a past medical history significant for COPD history of recurrent pneumonias fibromyalgia hypertension PE presenting to the hospital 3 days ago for evaluation of increasing shortness of breath symptoms seem to have been getting worse for the last few days and the patient also noticed to have episodes of confusion patient was noticed to be hypoxic with O2 sats of 60% for the patient has been brought into the hospital on arrival to the patient was afebrile and no fever has been recorded subsequently patient was tachycardic at 1 point and hypoxic requiring 6 L nasal cannula oxygen patient did have a white count of 22.79 which is up to 26.75 with a left shift BUN has been elevated creatinine is normal liver enzymes mildly elevated subsequent normalized urine has been negative urine for Legionella antigen is negative blood culture so far negative patient did have a chest x-ray that shows patient had bilateral airspace consolidation in the perihilar and lung base consistent with multifocal pneumonia patient did have a CT angiogram of the chest did not show any PE did have airspace consolidation at the lung bases consistent with multilobar pneumonia sputum came back with MRSA with the patient apparently had been switched over to vancomycin pharmacy to dose infectious he was consulted today for further management of antibiotic therapy patient be complaining of shortness of breath she also have a cough which is moderate intensity bringing some sputum denies any further chest pain she did have some nausea no vomiting no abdominal pain no diarrhea Review of Systems Positive point and negatives has been mentioned in the HPI, complete review of systems was performed and all other systems are negative Past Medical History Past Medical History: Asthma, Heart Failure, COPD, Fibromyalgia, GERD/Reflux, Hypertension, Osteoarthritis (OA), Pneumonia, Pulmonary Embolus (PE), Skin Disorder, Thyroid Disorder Additional Past Medical History / Comment(s): Spinal Stenosis, Cervical disc disease/stenosis, scoliosis, numbness/tingling L side of face/neck, hx of L hemidiaphragmatic elevation-possibly genetic, recently bronchitis and past bronchitis, electrolyte problem/kidney function being affected, hx of pulmonary emboli, past bilateral lower extremity cellulitis, edema lower extremities, IBS, hemorrhoids, benign colon polyps, sinus problems, UTIs, bacteremia/sepsis, cardiac murmur, past L ankle and L wrist fractures. History of Any Multi-Drug Resistant Organisms: MRSA, Other MDRO Year Discovered:: 12/19/24-Other MDRO; 11/27/24-MRSA MDRO Source:: Other MDRO-sputum; MRSA-sputum, knee Past Surgical History: Bariatric Surgery, Section, Cholecystectomy, Hysterectomy, Tonsillectomy Additional Past Surgical History / Comment(s): EGD, colonoscopies, gastric bypass, surgery for deviated septum, left cataract removal (having laser procedure on that eye 11/24/23) Past Anesthesia/Blood Transfusion Reactions: Previous Problems w/ Anesthesia Additional Past Anesthesia/Blood Transfusion Reaction / Comm: itching after hysterectomy, some kind of breathing problem after gastric bypass-not sure what happened Past Psychological History: Anxiety, Bipolar, Depression, Panic Disorder Smoking Status: Current every day smoker Past Alcohol Use History: None Reported Past Drug Use History: Marijuana - Past Family History Mother Family Medical History: Congestive Heart Failure (CHF), Hypertension Father History Unknown: Yes Additional Family Medical History / Comment(s): Father at the age of 45 yrs d/t having had rheumatic fever as a child and heart valve disease. Medications and Allergies Home Medications Medication Instructions Recorded Confirmed Type Montelukast [Singulair] 10 mg PO HS 12/17/13 01/24/25 History Levothyroxine Sodium [Synthroid] 150 mcg PO DAILY 03/29/20 01/24/25 History Famotidine [Pepcid] 20 mg PO BID 09/03/21 01/24/25 History Tamsulosin [Flomax] 0.4 mg PO DAILY 10/26/21 01/24/25 History Ipratropium-Albuterol Nebulize 3 ml INHALATION RT-QID 11/13/22 01/24/25 History [Duoneb 0.5 mg-3 mg/3 ml Soln] lamoTRIgine [LaMICtal] 100 mg PO BID 03/18/24 01/24/25 History Metoprolol Tartrate [Lopressor] 25 mg PO BID 05/16/24 01/24/25 History Divalproex ER [Depakote ER] 250 mg PO BID #60 tab 05/26/24 01/24/25 Rx Gabapentin 300 mg PO TID 06/01/24 01/24/25 History busPIRone HCL [Buspar] 30 mg PO BID 06/09/24 01/24/25 History Fluticasone/Umeclidin/Vilanter 1 puff INHALATION RT-DAILY 10/17/24 01/24/25 History [Trelegy Ellipta 200-62.5-25] OLANZapine 15 mg PO HS 10/17/24 01/24/25 History Venlafaxine HCl [Effexor XR] 150 mg PO DAILY 10/17/24 01/24/25 History amLODIPine [Norvasc] 5 mg PO BID 30 Days #60 tab 10/21/24 01/24/25 Rx lisinopriL [Zestril] 10 mg PO DAILY 30 Days #30 tab 10/21/24 01/24/25 Rx Nitroglycerin Sl Tabs [Nitrostat] 0.4 mg SUBLINGUAL Q5M PRN #20 tab 11/30/24 01/24/25 Rx Furosemide [Lasix] 20 mg PO DAILY 12/11/24 01/24/25 History guaiFENesin [Mucinex] 600 mg PO Q8H PRN 12/24/24 01/24/25 History Ipratropium-Albuterol Nebulize 3 ml INHALATION RT-Q4H PRN each 12/26/24 01/24/25 Rx [Duoneb 0.5 mg-3 mg/3 ml Soln] Docusate [Colace] 100 mg PO DAILY cap 01/08/25 01/24/25 Rx bisacodyL [Dulcolax] 10 mg PO DAILY tab 01/08/25 01/24/25 Rx polyethylene glycoL 3350 [Miralax] 17 gm PO HS packet 01/08/25 01/24/25 Rx Acetaminophen Tab [Tylenol] 650 mg PO Q4H PRN 01/24/25 01/24/25 History Aspirin 81 mg PO DAILY 01/24/25 01/24/25 History Budesonide [Pulmicort] 1 mg INHALATION RT-BID 01/24/25 01/24/25 History Buprenorphine [Butrans 7.5 MCG/HR] 1 patch TRANSDERM FR 01/24/25 01/24/25 History Cholecalciferol [Vitamin D3 (25 50 mcg PO DAILY 01/24/25 01/24/25 History Mcg = 1000 Iu)] Cyanocobalamin [Vitamin B-12] 500 mcg PO DAILY 01/24/25 01/24/25 History Cyclobenzaprine [Flexeril] 10 mg PO HS 01/24/25 01/24/25 History Glimepiride 1 mg PO BID 01/24/25 01/24/25 History HYDROcodone/APAP 5-325MG [Coy 1 tab PO Q8H PRN 01/24/25 01/24/25 History 5-325] Insulin Lispro [humaLOG Kwikpen] See Protocol SQ AC-TID 01/24/25 01/24/25 History Levofloxacin [Levaquin] 500 mg PO DAILY 01/24/25 01/24/25 History Nicotine 7Mg/24Hr Patch [Habitrol] 1 patch TRANSDERM DAILY 01/24/25 01/24/25 History predniSONE 10 mg PO DAILY 01/24/25 01/24/25 History predniSONE See Taper PO DIRECTED 01/24/25 01/24/25 History Allergies Allergy/AdvReac Type Severity Reaction Status Date / Time codeine Allergy Unknown Verified 01/24/25 10:24 Childhood Penicillins Allergy Rash/Hives Verified 01/24/25 10:24 Sulfa (Sulfonamide Allergy Rash/Hives Verified 01/24/25 10:24 Antibiotics) Physical Exam Vitals: Vital Signs Temp Pulse Pulse Resp BP Pulse Ox FiO2 01/27/25 12:34 83 16 91 L 50 01/27/25 11:48 98.7 F 73 19 121/66 88 L 01/27/25 09:52 86 01/27/25 09:39 80 01/27/25 09:38 80 01/27/25 09:27 74 88 L 01/27/25 08:45 98.4 F 75 19 137/76 87 L 01/27/25 08:00 75 19 01/27/25 03:33 98.1 F 69 16 144/69 97 50 01/27/25 01:06 50 01/26/25 23:31 98.1 F 63 18 121/71 94 L 01/26/25 21:06 82 01/26/25 20:55 80 01/26/25 20:42 80 01/26/25 20:02 98.2 F 69 18 104/62 95 01/26/25 16:49 88 01/26/25 16:37 81 01/26/25 16:00 81 18 137/69 92 L 01/26/25 14:00 80 18 Intake and Output 01/26/25 01/27/25 01/27/25 22:59 06:59 14:59 Intake Total 222 0 Output Total 1125 Balance -903 0 Intake: Oral 222 0 Output: Urine 1125 Uretheral (Husain) 300 Other: Voiding Method Indwelling Catheter Indwelling Catheter Indwelling Catheter # Voids 1 Weight 86.5 kg GENERAL DESCRIPTION: Elderly male lying in bed, no distress. No tachypnea or accessory muscle of respiration use. HEENT: Shows Pallor , no scleral icterus. Oral mucous membrane is dry. NECK: Trachea central, no thyromegaly. LUNGS: Unlabored breathing. Coarse breath sounds bilaterally HEART: S1, S2, regular rate and rhythm. No loud murmur ABDOMEN: Soft, no tenderness , guarding or rigidity, no organomegaly EXTREMITIES: No edema of feet. SKIN: No rash, no masses palpable. NEUROLOGICAL: The patient is awake, mood and affect normal. Results CBC & Chem 7: 01/27/25 05:55 01/27/25 14:08 Labs: Abnormal Lab Results - Last 24 Hours (Table) 01/26/25 01/26/25 01/27/25 Range/Units 16:35 20:28 02:18 WBC (4.50-10.00) 10*3/uL RBC (4.10-5.20) 10*6/uL Hgb (12.0-15.0) g/dL Hct (37.2-46.3) % MCV (80.0-97.0) fL MCHC (32.0-37.0) g/dL Immature Gran # (0.00-0.04) 10*3/uL Neutrophils # (1.80-7.70) 10*3/uL Lymphocytes # (0.90-5.00) 10*3/uL Monocytes # (0.20-1.00) 10*3/uL Eosinophils # (0.04-0.35) 10*3/uL Sodium (137-145) mmol/L Potassium (3.5-5.1) mmol/L Chloride (98-107) mmol/L Carbon Dioxide (22-30) mmol/L BUN (7-17) mg/dL Glucose (74-99) mg/dL POC Glucose (mg/dL) 335 H 321 H 191 H (70-110) mg/dL 01/27/25 01/27/25 01/27/25 Range/Units 05:35 05:55 05:55 WBC 26.75 H (4.50-10.00) 10*3/uL RBC 3.37 L (4.10-5.20) 10*6/uL Hgb 10.3 L (12.0-15.0) g/dL Hct 33.6 L (37.2-46.3) % MCV 99.7 H (80.0-97.0) fL MCHC 30.7 L (32.0-37.0) g/dL Immature Gran # 0.22 H (0.00-0.04) 10*3/uL Neutrophils # 23.36 H (1.80-7.70) 10*3/uL Lymphocytes # 0.79 L (0.90-5.00) 10*3/uL Monocytes # 2.31 H (0.20-1.00) 10*3/uL Eosinophils # 0.00 L (0.04-0.35) 10*3/uL Sodium 129 L (137-145) mmol/L Potassium 5.6 H (3.5-5.1) mmol/L Chloride 86 L (98-107) mmol/L Carbon Dioxide 39 H (22-30) mmol/L BUN 32 H (7-17) mg/dL Glucose 129 H (74-99) mg/dL POC Glucose (mg/dL) 149 H (70-110) mg/dL Microbiology - Last 24 Hours (Table) 01/25/25 11:49 Gram Stain - Final Sputum Sputum Culture - Final Methicillin resist S. aureus 01/24/25 00:44 Blood Culture - Preliminary Blood Assessment and Plan (1) Multifocal pneumonia Current Visit: Yes Status: Acute Code(s): J18.9 - PNEUMONIA, UNSPECIFIED ORGANISM SNOMED Code(s): 945470476 (2) Allergy to multiple antibiotics Current Visit: No Status: Acute Code(s): Z88.1 - ALLERGY STATUS TO OTHER ANTIBIOTIC AGENTS SNOMED Code(s): 266443890 (3) Leukocytosis Current Visit: No Status: Acute Code(s): D72.829 - ELEVATED WHITE BLOOD CELL COUNT, UNSPECIFIED SNOMED Code(s): 097042090 Plan: 1 Patient presented to the hospital increasing shortness of breath and cough in this patient who did have a tachycardia elevated white count did meet criteria for SIRS/sepsis versus multifocal pneumonia now with a sputum showing MRSA likely the infecting pathogen 2-patient with multiple antibiotic ALLERGIES that would limit the number of antibiotic safe to use 3-patient will be treated with vancomycin pharmacy to dose target of 15 on watching her kidney function closely 4-keep in mind the patient is on multiple medications that are interacting with Zyvox and the patient did have sulfa allergy he will likely need a PICC line for outpatient IV antibiotic therapy on discharge We will follow on clinical condition and cultures to further adjust medication if needed Thank you for this consultation we will follow the patient along with you Dictation was produced using [employer] dictation software. please excuse any grammatical, word or spelling errors. Time with Patient: Greater than 30
[2025-01-28 01:33] LABS: Glucose,Whole Blood 167 mg/dL (70-110)
[2025-01-28 06:09] LABS: Glucose,Whole Blood 184 mg/dL (70-110)
[2025-01-28 07:11] LABS: Basophils # (A) 0.05 10*3/uL (0.00-0.10); Basophils % (A) 0.2 %; Eosinophils # (A) 0.03 10*3/uL (0.04-0.35); Eosinophils % (A) 0.1 %; HCT 33.9 % (37.2-46.3); HGB 10.4 g/dL (12.0-15.0); Lymphocytes # (A) 0.78 10*3/uL (0.90-5.00); Lymphocytes % (A) 3.8 %; MCH 30.4 pg (27.0-32.0); MCHC 30.7 g/dL (32.0-37.0); MCV 99.1 fL (80.0-97.0); Monocytes # (A) 1.12 10*3/uL (0.20-1.00); Monocytes % (A) 5.5 %; Neutrophils # (A) 18.33 10*3/uL (1.80-7.70); Neutrophils % (A) 89.4 %; Platelet Count 282 10*3/uL (140-440); RBC 3.42 10*6/uL (4.10-5.20); RDW 14.2 % (11.5-14.5); WBC 20.51 10*3/uL (4.50-10.00)
[2025-01-28 07:37] LABS: African American GFR (CKD) >90 (>60 ml/min/1.73 sqM); Blood Urea Nitrogen 31 mg/dL (7-17); Calcium 9.7 mg/dL (8.4-10.2); Chloride 86 mmol/L (98-107); Glucose 169 mg/dL (74-99); Non-African American GFR(CKD) >90 (>60 ml/min/1.73 sqM); Potassium 5.4 mmol/L (3.5-5.1); Sodium 131 mmol/L (137-145)
[2025-01-28 07:44] LABS: Anion Gap 4 mmol/L
[2025-01-28 08:47] LABS: Carbon Dioxide 41 mmol/L (22-30)
[2025-01-28] MEDS ORDERED: SODIUM ZIRCONIUM CYCLOSILICATE 10 GM PACKET PO SCH (09:45)
--- NOTE | 2025-01-28 11:31 | P.PN ---
Subjective Progress Note Date: 01/28/25 Patient is a 69-year-old female with past medical history significant for COPD, chronic hypoxemic respiratory failure, chronic ongoing tobacco use, heart failure, pulmonary embolism, diabetes mellitus type II, hypothyroidism, gastric bypass. Patient recently discharged from hospital on 01/08/2025 to [facility] on the [place] for rehab. She was admitted with acute COPD exacerbation. Sputum culture was positive for multidrug-resistant Pseudomonas aeruginosa. She was treated with a 10-day course of Zerbaxa. Repeat sputum culture showing normal respiratory farooq. Also, previously MRSA was identified in the sputum back on Nov, 2024. Early this morning, patient brought in [facility] She was noted to be confused at the outside facility. Also, having difficulty breathing. Pulse ox is reading low, around 60%, on 5 L/min nasal cannula. Patient was severel hypoglycemic on arrival with a blood glucose less than 20, and received multiple amps of D50 W and continued on a D5/0.9 saline infusion at 75 mm/h. She was on a sulfonylurea at the outside facility. An ABG was drawn consistent with acute on chronic hypercapnic and hypoxemic respiratory failure. She was placed on BiPAP in the ED. Brain CT did not show any acute intracranial hemorrhage, midline shift, or mass effect. Chest CT angiogram did not show any pulmonary embolism. Appears to be increased bibasilar airspace consolidations, consistent with multi lobar pneumonia and trace parapneumonic effusion. CBC with a WBC count of 22.79, hemoglobin 10, platelets 389. CMP: Sodium 128, potassium 5.1, chloride 87, serum bicarb 36, BUN 31, creatinine 0.44, blood glucose less than 20. LFTs mildly elevated. Lactic acid not elevated. Troponin less than 0.012. NT-proBNP 1250. Urinalysis unremarkable for infection. Most recent blood glucose 82. Currently being evaluated emergency department. She is on BiPAP with settings 16/6 and FiO2 70%. Nonlabored breathing. Achieving good tidal volumes. She is alert and oriented x 3. Does not call recall immediate events prior to hospitalization. No specific complaints at this time other than she would like a drink of water. Admits to occasional cough with phlegm. Denies any hemoptysis, pleurisy. No fevers or chills. Previously started on Levaquin. Denies any nausea, vomiting, diarrhea, abdominal pain. Appetite has been good. She does have a mild tremor, staff nurse is going to check her blood sugar which has been repetitively low. Recently started on D5W with 0.9 at 75 mL/h The patient is seen today January 25, 2025 in follow-up on the selective care unit. She is currently sitting up in bed. Awake and alert in no acute distress. Maintaining O2 saturations in the 90s on 5 L/min per nasal cannula. She is afebrile. Hemodynamically stable. White count 22.2. Hemoglobin 9.3. Platelets 300,000. Sodium 128. Potassium 4.6. Bicarb 36. BUN 23. Creatinine 0.55. Glucose 207. She remains on DuoNeb inhalations, Pulmicort and Perforomist inhalations, Solu-Medrol, Singulair. NicoDerm patch in place. Lovenox for DVT prophylaxis. Remains on antibiotics in the form of Levaquin. The patient is seen today January 26, 2025 in follow-up on the selective care unit. She is currently sitting up in bed. Awake and alert in no acute distress. She is maintained on BiPAP 16/6 and 50% FiO2. Her is at the bedside. Sputum cultures revealing presumptive Staph aureus. Blood culture showing no growth. Sodium 128. Potassium 4.9. Bicarb 37. BUN 27. Creatinine 0.66. Glucose 247. Calcium 9.8. She is continued on DuoNeb inhalations, Pulmicort an d performance inhalations, IV Solu-Medrol and Singulair. Lovenox for DVT prophylaxis. She remains on Levaquin. NicoDerm patch in place. The patient is seen today January 27, 2025 in follow-up on the selective care unit. She is awake and alert in no acute distress. Currently maintaining O2 saturat ions in the high 80s and low 90s on 5 L/min per nasal cannula. Sputum cultures positive for MRSA. Blood culture revealing no growth. White count 26.7. Hemoglobin 10.3. Platelets 298. Sodium 129. Potassium 5.6. Bicarb 39. BUN 32. Creatinine 0.55. Glucose 129. She remains on DuoNeb inhalations, Pulmicort and Perforomist inhalations, IV Solu-Medrol. Remains on Singulair. NicoDerm patch in place. Lovenox for DVT prophylaxis. She remains on antibiotics in the form of Levaquin. The patient is seen today January 28, 2025 in follow-up on the selective care unit. She is currently sitting up in bed. Awake and alert in no acute distress. She is maintaining O2 saturations in the 90s on 6 L/min per nasal cannula. She did utilize BiPAP throughout the night 16/6 and 50% FiO2. She is continued on DuoNeb inhalations, Pulmicort and Perforomist inhalations, IV Solu-Medrol and Singulair. NicoDerm patch remains in place. She is continued on vancomycin. Lovenox for DVT prophylaxis. Remains on oral diuretics. Sputum cultures positive for MRSA. Blood culture reveals no growth. White count 20.5. Hemoglobin 10.4. Platelets 282. Sodium 131. Potassium 5.4. Bicarb 41. BUN 31. Creatinine 0.67. Glucose 169. Objective - Vital Signs Vital signs: Vital Signs Temp 98.1 F 01/28/25 08:00 Pulse 92 01/28/25 11:22 Resp 19 01/28/25 08:00 BP 148/73 01/28/25 08:00 Pulse Ox 93 L 01/28/25 08:10 FiO2 50 01/27/25 23:26 Intake & Output 01/27/25 01/28/25 01/28/25 18:59 06:59 18:59 Intake Total 720 540 120 Output Total 476 649 8034 Balance 842 -668 -1294 Weight 87.2 kg Intake: Oral 720 540 120 Output: Urine 425 598 3535 Other: Voiding Method Indwelling Catheter Indwelling Catheter Indwelling Catheter # Voids 1 - Exam GENERAL EXAM: Alert, 69-year-old obese female, mild tremor, sitting up in bed, on 6 L nasal cannula, in no apparent distress. HEAD: Normocephalic and atraumatic EYES: Normal reaction of pupils, equal size. NOSE: Clear with pink turbinates. THROAT: No erythema or exudates. NECK: No masses, no JVD. CHEST: No chest wall deformity. LUNGS: Equal air entry with diminished bibasilar lung sounds. Few scattered rhonchi. CVS: S1 and S2 normal with no audible murmur, regular rhythm. No extra heart sounds ABDOMEN: No hepatosplenomegaly, active bowel sounds, no guarding or rigidity. SPINE: No scoliosis or deformity SKIN: No rashes CENTRAL NERVOUS SYSTEM: No focal deficits, tone is normal in all 4 extremities. EXTREMITIES: There is no peripheral edema, clubbing, or cyanosis. Peripheral pulses are intact. - Labs CBC & Chem 7: 01/28/25 05:43 01/28/25 05:43 Labs: Abnormal Lab Results - Last 24 Hours (Table) 01/27/25 01/27/25 01/28/25 Range/Units 16:03 19:50 01:31 WBC (4.50-10.00) 10*3/uL RBC (4.10-5.20) 10*6/uL Hgb (12.0-15.0) g/dL Hct (37.2-46.3) % MCV (80.0-97.0) fL MCHC (32.0-37.0) g/dL MPV (9.5-12.2) fL Immature Gran # (0.00-0.04) 10*3/uL Neutrophils # (1.80-7.70) 10*3/uL Lymphocytes # (0.90-5.00) 10*3/uL Monocytes # (0.20-1.00) 10*3/uL Eosinophils # (0.04-0.35) 10*3/uL Sodium (137-145) mmol/L Potassium (3.5-5.1) mmol/L Chloride (98-107) mmol/L Carbon Dioxide (22-30) mmol/L BUN (7-17) mg/dL Glucose (74-99) mg/dL POC Glucose (mg/dL) 167 H 121 H 167 H (70-110) mg/dL 01/28/25 01/28/25 01/28/25 Range/Units 05:43 05:43 06:09 WBC 20.51 H (4.50-10.00) 10*3/uL RBC 3.42 L (4.10-5.20) 10*6/uL Hgb 10.4 L (12.0-15.0) g/dL Hct 33.9 L (37.2-46.3) % MCV 99.1 H (80.0-97.0) fL MCHC 30.7 L (32.0-37.0) g/dL MPV 9.4 L (9.5-12.2) fL Immature Gran # 0.20 H (0.00-0.04) 10*3/uL Neutrophils # 18.33 H (1.80-7.70) 10*3/uL Lymphocytes # 0.78 L (0.90-5.00) 10*3/uL Monocytes # 1.12 H (0.20-1.00) 10*3/uL Eosinophils # 0.03 L (0.04-0.35) 10*3/uL Sodium 131 L (137-145) mmol/L Potassium 5.4 H (3.5-5.1) mmol/L Chloride 86 L (98-107) mmol/L Carbon Dioxide 41 H* (22-30) mmol/L BUN 31 H (7-17) mg/dL Glucose 169 H (74-99) mg/dL POC Glucose (mg/dL) 184 H (70-110) mg/dL Microbiology - Last 24 Hours (Table) 01/24/25 00:44 Blood Culture - Preliminary Blood 01/25/25 11:49 Gram Stain - Final Sputum Sputum Culture - Final Methicillin resist S. aureus Assessment and Plan Assessment: Acute COPD exacerbation Acute on chronic hypoxic and hypercapnic respiratory failure, secondary to above, repeat chest CT angiogram did not show any pulmonary embolism. Continues to show bibasilar airspace consolidations, which may be increased in my opinion, consistent with multi lobar pneumonia and trace parapneumonic effusion. Sputum cultures positive for MRSA. Currently on vancomycin Severe hypoglycemia, previous on glimepiride which is on hold, improved Altered mental status, secondary to above, improved Moderate fecal retention/constipation Sputum culture from 12/25/2024 positive for multidrug-resistant Pseudomonas aeruginosa, completed 10-day course of Zerbaxa. Repeat sputum culture showing normal respiratory farooq Sputum positive for MRSA 11/27/2024 Left hemidiaphragm elevation possible paralysis Chronic obstructive pulmonary disease, with an FEV1 64% predicted, Gold stage II Chronic hypoxemic respiratory failure, secondary to combination of above Hyponatremia Leukocytosis Chronic ongoing tobacco dependence Hypothyroidism Hypertension History of mediastinal lymphadenopathy History of gastric bypass surgery Bipolar disorder Fibromyalgia and chronic pain syndrome Plan: The patient was seen and evaluated Labs and medications reviewed Microbiology reviewed Sputum culture positive for MRSA Continue vancomycin Currently on 6 liters per minute per nasal cannula Continue DuoNeb inhalations Continue Pulmicort and Perforomist inhalations Continue Solu-Medrol Continue Singulair NicoDerm patch in place Lovenox for DVT prophylaxis Titrate down the FiO2 as tolerated Increase her activity as tolerated We will continue to follow I have personally seen and examined the patient, performed the documentation and the assessment and plan as written. Number of minutes spent on the visit: 10 Dictation was produced using [employer] dictation software. Please excuse any grammatical, word or spelling errors.
[2025-01-28 12:07] LABS: Glucose,Whole Blood 279 mg/dL (70-110)
--- NOTE | 2025-01-28 15:18 | P.PN ---
Subjective Progress Note Date: 01/28/25 This is a pleasant 69-year-old female who presented to the emergency department via EMS from [facility] where patient was at for continued PT/OT therapy from previous admission with significant weakness. Patient was found to be altered and more confused and hypoxic, maintained on chronic 4 to 5 L and having increasing shortness of breath. Patient was sent to the ER for further evaluation. Patient was placed on BiPAP with concerns of possible pneumonia. Patient had extensive pneumonia with positive sputum cultures and previous admission with infectious disease following and had been maintained on prolonged antibiotics. Patient was started on Levaquin by the ER. Chest x-ray on admission shows patchy bilateral airspace consolidations in the perihilar and lung bases consistent with multilobar pneumonia as well as small bilateral effusions noted. CT brain was performed showing no acute intracranial hemorrhage midline shift or mass effect. D-dimer was mildly elevated and patient did undergo CTA which shows no evidence of PE. Patient also underwent CT abdomen pelvis showing some moderate fecal retention correlate for constipation and was started on a bowel regimen. Patient follows with Dr. Wheeler in the outpatient setting, heart failure, asthma, fibromyalgia, GERD, hypertension, osteoarthritis, previous pulmonary embolus back and neck pain with spinal stenosis and cervical disc, scoliosis, significant anxiety, continued ongoing nicotine use, and THC use. Labs revealed a white count of 22.79, platelets 389, D-dimer minimally elevated at 0.73, sodium 128 with a potassium of 5.1, BUN is 31 and creatinine is 0.44 blood sugar was checked and found to be extremely low and treated. Troponin was negative and BNP was 1250. Procalcitonin ordered and pending at this time. Patient had been maintained on continued prednisone taper from previous discharge as well as [id number] breathing treatments. Patient was admitted to the hospital for acute on chronic hypoxic respiratory failure requiring BiPAP exacerbation and concerns of possible multilobar pneumonia. After review of previous admission imaging, opacities and infiltrates appear to be the same. Patient will be continued on BiPAP and wean as tolerated as patient chronically wears 5 L outpatient. Pulmonary consulted as well. Patient was started on Levaquin and breathing treatments and will review and resume appropriate medications once verified. Continue monitoring Accu-Cheks closely. 01/25/2025 Patient seen and evaluated in follow-up this morning continues on BiPAP with extreme anxiety recommend weaning and transitioning to chronic 5 L via nasal cannula. Pulmonary is following maintained on IV steroids along with breathing treatments and Levaquin. Procalcitonin 0.42 and antibiotics being discontinued per pulmonary. Recommend PT/OT therapy evaluation as plan will be to return to [facility] on discharge for continued strength and mobility. Encourage increased activity as tolerated. Mentation is baseline and patient continues to be extremely anxious. Medications adjusted. 01/26/2025 Patient is seen in follow-up today currently off the BiPAP on 5 L and tolerating. Patient is using BiPAP at night and will plan for return to [facility] with BiPAP from 8 PM until 8 AM. Patient is continued on IV steroids and will decrease to 40 mg twice daily. Patient is continued on [id number] breathing treatments and will continue. Pulmonary following and also continued on Levaquin daily. Preliminary sputum culture showing presumptive staph and patient has recently had multiple positive sputum cultures for Pseudomonas and Sabrina and MRSA. Patient to be evaluated by PT/OT therapy today as plan is to return to [facility] for continued strength and mobility. Case management following and has been instructed to submit for insurance authorization which is pending. Follow-up on sputum cultures and continue current regimen with possible discharge planning in the next 24 hours. Patient is extremely high risk for readmission and has had multiple hospitalizations. Will reassess in the a.m. and await pulmonary clearance to determine discharge planning. 01/27/2025 Patient evaluated in follow up on the cardiac unit. Currently on oxygen via nasal cannula at 6L. Continues with productive cough with large amounts of thick brown/green sputum. Patients sputum culture has now come back positive for MRSA. ID was consulted for further management of antibiotic therapy. Patient is not ready for return to [facility]. Today WBC is up to 26.75, hemoglobin 10.3, sodium 29, potassium 5.6, BUN 32, creatinine 0.55. Potassium better at 4.6 after treatment with lokelma. 01/28/2025 Patient evaluated in follow-up in the cardiac unit. She is currently resting comfortably. Continues on oxygen via nasal cannula at 6 L. Continues on IV vancomycin for the sputum positive for MRSA. ID and pulmonology following. White blood cell count down to 20.51, hemoglobin 10.4. Sodium level of 131 potassium 5.4 chloride of 86 CO2 of 41 BUN of 31 creatinine 0.63 Review of systems: Constitutional: No reports of fatigue, fever, or chills, reports continued extreme anxiety Cardiovascular: No reports of chest pain or palpitations Respiratory: reports of continued shortness of breath and occasional cough GI: No reports of nausea, vomiting, or diarrhea : No reports of dysuria or retention Neurovascular: reports of generalized weakness All medications have been reviewed PHYSICAL EXAMINATION: GENERAL: The patient is alert and oriented x3, anxious . Well developed, well nourished. Elderly appearing, chronically ill-appearing, obese HEENT: Pupils are round and equally reacting to light. EOMI. No scleral icterus. No conjunctival pallor. Normocephalic, atraumatic. No pharyngeal erythema. No thyromegaly. CARDIOVASCULAR: S1 and S2 muffled PULMONARY: Diminished breath sounds bilaterally with some scattered expiratory wheezing and faint crackles noted at the bases. Currently on 5 L. Coarse ronchi. ABDOMEN: Soft, obese nontender, nondistended, normoactive bowel sounds. No palpable organomegaly. MUSCULOSKELETAL: No joint swelling or deformity. EXTREMITIES: No cyanosis, clubbing, or pedal edema. NEUROLOGICAL: Gross neurological examination did not reveal any focal deficits. Diffusely weak SKIN: No rashes. Assessment: Shortness of breath with acute on chronic hypoxic respiratory failure secondary to COPD exacerbation Altered mentation on admission, likely metabolic encephalopathy secondary to significant hypoglycemia, improved and at baseline Elevated D-dimer, PE ruled out History of previous sputum culture with Pseudomonas and was maintained on Zerbaxa with infectious disease following for 10 days before discharge to [facility] History of MRSA in the sputum with repeat sputum this admission from 01/25/2025 revealing MRSA Continued ongoing nicotine dependence, patient has not smoked in 3 weeks due to hospitalization and being at [facility] THC use Severe anxiety/depression/bipolar disorder History of hyponatremia hypertension history History of chronic pain and fibromyalgia History of scoliosis Obesity with a BMI of 34.7 GI prophylaxis DVT prophylax Full code Plan: Patient was admitted and placed on BiPAP in the ER currently maintained on BiPAP intermittently at night and is now continued on chronic 5 L; currently saturations are marginal and today has been weaned to 6L of oxygen via nasal cannula. Pulmonary following Levaquin has been discontinued and antibiotics changed to IV vancomycin as sputum has come back revealing MRSA Continue tami ID was consulted. Home medications reviewed and resumed as appropriate Recommend to continue monitoring Accu-Cheks AC and at bedtime and will continue as needed sliding scale hold oral diabetic agents at this time. Follow-up on repeat labs. Replace electrolytes per protocol PT/OT therapy to evaluate for updated notes as case management is working on discharge planning with plans on returning to [facility] on discharge. Discussed with case management as patient would benefit from BiPAP and patient currently has an FiO2 of 50% and PEEP is 5. Patient will be discharged to [facility] for continued physical therapy once cleared by consultations The impression and plan of care has been dictated by Casandra Jimenez, Nurse Practitioner as directed. Dr. Micky MD I have performed a history and examination and MDM of this patient, discussed the same with the dictator, and agree with the dictator's assessment and plan as written ,documented as a scribe. Based on total visit time, I have performed more than 50% of the visit. Objective - Vital Signs Vital signs: Vital Signs Temp 98.1 F 01/28/25 08:00 Pulse 96 01/28/25 08:23 Resp 19 01/28/25 08:00 BP 148/73 01/28/25 08:00 Pulse Ox 93 L 01/28/25 08:10 FiO2 50 01/27/25 23:26 Intake & Output 01/27/25 01/28/25 01/28/25 18:59 06:59 18:59 Intake Total 720 540 120 Output Total 300 800 Balance 420 -260 120 Weight 87.2 kg Intake: Oral 720 540 120 Output: Urine 300 800 Other: Voiding Method Indwelling Catheter Indwelling Catheter # Voids 1 - Labs CBC & Chem 7: 01/28/25 05:43 01/28/25 05:43 Labs: Abnormal Lab Results - Last 24 Hours (Table) 01/27/25 01/27/25 01/27/25 Range/Units 05:55 16:03 19:50 WBC 26.75 H (4.50-10.00) 10*3/uL RBC 3.37 L (4.10-5.20) 10*6/uL Hgb 10.3 L (12.0-15.0) g/dL Hct 33.6 L (37.2-46.3) % MCV 99.7 H (80.0-97.0) fL MCHC 30.7 L (32.0-37.0) g/dL MPV (9.5-12.2) fL Immature Gran # 0.22 H (0.00-0.04) 10*3/uL Neutrophils # 23.36 H (1.80-7.70) 10*3/uL Lymphocytes # 0.79 L (0.90-5.00) 10*3/uL Monocytes # 2.31 H (0.20-1.00) 10*3/uL Eosinophils # 0.00 L (0.04-0.35) 10*3/uL Sodium (137-145) mmol/L Potassium (3.5-5.1) mmol/L Chloride (98-107) mmol/L Carbon Dioxide (22-30) mmol/L BUN (7-17) mg/dL Glucose (74-99) mg/dL POC Glucose (mg/dL) 167 H 121 H (70-110) mg/dL 01/28/25 01/28/25 01/28/25 Range/Units 01:31 05:43 05:43 WBC 20.51 H (4.50-10.00) 10*3/uL RBC 3.42 L (4.10-5.20) 10*6/uL Hgb 10.4 L (12.0-15.0) g/dL Hct 33.9 L (37.2-46.3) % MCV 99.1 H (80.0-97.0) fL MCHC 30.7 L (32.0-37.0) g/dL MPV 9.4 L (9.5-12.2) fL Immature Gran # 0.20 H (0.00-0.04) 10*3/uL Neutrophils # 18.33 H (1.80-7.70) 10*3/uL Lymphocytes # 0.78 L (0.90-5.00) 10*3/uL Monocytes # 1.12 H (0.20-1.00) 10*3/uL Eosinophils # 0.03 L (0.04-0.35) 10*3/uL Sodium 131 L (137-145) mmol/L Potassium 5.4 H (3.5-5.1) mmol/L Chloride 86 L (98-107) mmol/L Carbon Dioxide 41 H* (22-30) mmol/L BUN 31 H (7-17) mg/dL Glucose 169 H (74-99) mg/dL POC Glucose (mg/dL) 167 H (70-110) mg/dL 01/28/25 Range/Units 06:09 WBC (4.50-10.00) 10*3/uL RBC (4.10-5.20) 10*6/uL Hgb (12.0-15.0) g/dL Hct (37.2-46.3) % MCV (80.0-97.0) fL MCHC (32.0-37.0) g/dL MPV (9.5-12.2) fL Immature Gran # (0.00-0.04) 10*3/uL Neutrophils # (1.80-7.70) 10*3/uL Lymphocytes # (0.90-5.00) 10*3/uL Monocytes # (0.20-1.00) 10*3/uL Eosinophils # (0.04-0.35) 10*3/uL Sodium (137-145) mmol/L Potassium (3.5-5.1) mmol/L Chloride (98-107) mmol/L Carbon Dioxide (22-30) mmol/L BUN (7-17) mg/dL Glucose (74-99) mg/dL POC Glucose (mg/dL) 184 H (70-110) mg/dL Microbiology - Last 24 Hours (Table) 01/24/25 00:44 Blood Culture - Preliminary Blood 01/25/25 11:49 Gram Stain - Final Sputum Sputum Culture - Final Methicillin resist S. aureus Assessment and Plan Time with Patient: Less than 30
--- NOTE | 2025-01-28 15:25 | P.PN ---
Subjective Progress Note Date: 01/28/25 Principal diagnosis: Reason for follow-up with MRSA pneumonia Patient is a 69-year-old female with a past medical history significant for COPD history of recurrent pneumonias fibromyalgia hypertension PE presenting to the hospital for evaluation of increasing shortness of breath and cough has been diagnosed with pneumonia sputum positive for MRSA prompting this consultation On today's evaluation that is 01/28/2025, Patient is afebrile patient is currently on 6 L nasal oxygen and breathing slightly comfortably, the patient denies any chest pain or any worsening cough, the patient denies any nausea vomiting did not have any abdominal pain and no diarrhea. Patient white count is down to 20.51 creatinine 0.63 blood culture negative so far Objective - Vital Signs Vital signs: Vital Signs Temp 98.4 F 01/28/25 11:36 Pulse 77 01/28/25 11:36 Resp 19 01/28/25 11:36 BP 144/70 01/28/25 11:36 Pulse Ox 90 L 01/28/25 11:36 FiO2 50 01/27/25 23:26 Intake & Output 01/27/25 01/28/25 01/28/25 18:59 06:59 18:59 Intake Total 720 540 120 Output Total 474 032 1148 Balance 420 260 -1080 Weight 87.2 kg Intake: Oral 720 540 120 Output: Urine 010 950 1009 Other: Voiding Method Indwelling Catheter Indwelling Catheter Indwelling Catheter # Voids 1 - Exam GENERAL DESCRIPTION: An elderly female lying in bed in no distress RESPIRATORY SYSTEM: Unlabored breathing , coarse breath sounds bilaterally HEART: S1 S2 regular rate and rhythm , ABDOMEN: Soft , no tenderness EXTREMITIES: No edema feet - Labs CBC & Chem 7: 01/28/25 05:43 01/28/25 05:43 Labs: Abnormal Lab Results - Last 24 Hours (Table) 01/27/25 01/27/25 01/28/25 Range/Units 16:03 19:50 01:31 WBC (4.50-10.00) 10*3/uL RBC (4.10-5.20) 10*6/uL Hgb (12.0-15.0) g/dL Hct (37.2-46.3) % MCV (80.0-97.0) fL MCHC (32.0-37.0) g/dL MPV (9.5-12.2) fL Immature Gran # (0.00-0.04) 10*3/uL Neutrophils # (1.80-7.70) 10*3/uL Lymphocytes # (0.90-5.00) 10*3/uL Monocytes # (0.20-1.00) 10*3/uL Eosinophils # (0.04-0.35) 10*3/uL Sodium (137-145) mmol/L Potassium (3.5-5.1) mmol/L Chloride (98-107) mmol/L Carbon Dioxide (22-30) mmol/L BUN (7-17) mg/dL Glucose (74-99) mg/dL POC Glucose (mg/dL) 167 H 121 H 167 H (70-110) mg/dL 01/28/25 01/28/25 01/28/25 Range/Units 05:43 05:43 06:09 WBC 20.51 H (4.50-10.00) 10*3/uL RBC 3.42 L (4.10-5.20) 10*6/uL Hgb 10.4 L (12.0-15.0) g/dL Hct 33.9 L (37.2-46.3) % MCV 99.1 H (80.0-97.0) fL MCHC 30.7 L (32.0-37.0) g/dL MPV 9.4 L (9.5-12.2) fL Immature Gran # 0.20 H (0.00-0.04) 10*3/uL Neutrophils # 18.33 H (1.80-7.70) 10*3/uL Lymphocytes # 0.78 L (0.90-5.00) 10*3/uL Monocytes # 1.12 H (0.20-1.00) 10*3/uL Eosinophils # 0.03 L (0.04-0.35) 10*3/uL Sodium 131 L (137-145) mmol/L Potassium 5.4 H (3.5-5.1) mmol/L Chloride 86 L (98-107) mmol/L Carbon Dioxide 41 H* (22-30) mmol/L BUN 31 H (7-17) mg/dL Glucose 169 H (74-99) mg/dL POC Glucose (mg/dL) 184 H (70-110) mg/dL 01/28/25 Range/Units 11:57 WBC (4.50-10.00) 10*3/uL RBC (4.10-5.20) 10*6/uL Hgb (12.0-15.0) g/dL Hct (37.2-46.3) % MCV (80.0-97.0) fL MCHC (32.0-37.0) g/dL MPV (9.5-12.2) fL Immature Gran # (0.00-0.04) 10*3/uL Neutrophils # (1.80-7.70) 10*3/uL Lymphocytes # (0.90-5.00) 10*3/uL Monocytes # (0.20-1.00) 10*3/uL Eosinophils # (0.04-0.35) 10*3/uL Sodium (137-145) mmol/L Potassium (3.5-5.1) mmol/L Chloride (98-107) mmol/L Carbon Dioxide (22-30) mmol/L BUN (7-17) mg/dL Glucose (74-99) mg/dL POC Glucose (mg/dL) 279 H (70-110) mg/dL Microbiology - Last 24 Hours (Table) 01/24/25 00:44 Blood Culture - Preliminary Blood Assessment and Plan (1) Multifocal pneumonia Current Visit: Yes Status: Acute Code(s): J18.9 - PNEUMONIA, UNSPECIFIED ORGANISM SNOMED Code(s): 431095131 (2) Allergy to multiple antibiotics Current Visit: No Status: Acute Code(s): Z88.1 - ALLERGY STATUS TO OTHER ANTIBIOTIC AGENTS SNOMED Code(s): 752045496 (3) Leukocytosis Current Visit: No Status: Acute Code(s): D72.829 - ELEVATED WHITE BLOOD CELL COUNT, UNSPECIFIED SNOMED Code(s): 214406318 Plan: 1 Patient presented to the hospital increasing shortness of breath and cough in this patient who did have a tachycardia elevated white count did meet criteria for SIRS/sepsis versus multifocal pneumonia now with a sputum showing MRSA likely the infecting pathogen 2-patient with multiple antibiotic ALLERGIES that would limit the number of antibiotic safe to use 3-patient will be treated with vancomycin pharmacy to dose target of 15 on watching her kidney function closely 4-white count is trending down the patient is afebrile will need a PICC line for outpatient IV antibiotics once stable for discharge Dictation was produced using [employer] dictation software. please excuse any grammatical, word or spelling errors. Time with Patient: Less than 30
[2025-01-28] MEDS: SODIUM ZIRCONIUM CYCLOSILICATE 10 GM PACKET PO SCH (15:58)
[2025-01-28 16:49] LABS: Glucose,Whole Blood 346 mg/dL (70-110)
[2025-01-28 20:04] LABS: Glucose,Whole Blood 361 mg/dL (70-110)
[2025-01-29 01:57] LABS: Glucose,Whole Blood 145 mg/dL (70-110)
[2025-01-29 06:07] LABS: Glucose,Whole Blood 165 mg/dL (70-110)
[2025-01-29 07:50] LABS: Basophils # (A) 0.05 10*3/uL (0.00-0.10); Basophils % (A) 0.2 %; Eosinophils # (A) 0.00 10*3/uL (0.04-0.35); Eosinophils % (A) 0.0 %; HCT 33.7 % (37.2-46.3); HGB 10.2 g/dL (12.0-15.0); Lymphocytes # (A) 1.03 10*3/uL (0.90-5.00); Lymphocytes % (A) 4.9 %; MCH 29.8 pg (27.0-32.0); MCHC 30.3 g/dL (32.0-37.0); MCV 98.5 fL (80.0-97.0); Monocytes # (A) 1.73 10*3/uL (0.20-1.00); Monocytes % (A) 8.3 %; Neutrophils # (A) 17.82 10*3/uL (1.80-7.70); Neutrophils % (A) 85.1 %; Platelet Count 248 10*3/uL (140-440); RBC 3.42 10*6/uL (4.10-5.20); RDW 13.9 % (11.5-14.5); WBC 20.95 10*3/uL (4.50-10.00)
[2025-01-29 08:02] LABS: African American GFR (CKD) >90 (>60 ml/min/1.73 sqM); Blood Urea Nitrogen 28 mg/dL (7-17); Calcium 9.4 mg/dL (8.4-10.2); Chloride 86 mmol/L (98-107); Glucose 133 mg/dL (74-99); Non-African American GFR(CKD) >90 (>60 ml/min/1.73 sqM); Potassium 4.9 mmol/L (3.5-5.1); Sodium 132 mmol/L (137-145)
[2025-01-29 08:08] LABS: Anion Gap 5 mmol/L
[2025-01-29 08:16] LABS: Carbon Dioxide 41 mmol/L (22-30)
[2025-01-29] MEDS: VANCOMYCIN TROUGH DUE 1 EACH MISC MISCELLANE ONE (10:23)
[2025-01-29] MEDS ORDERED: ZINC OXIDE PASTE (Z-GUARD) 1 APPLIC TOPICAL PRN (10:35)
[2025-01-29 11:37] LABS: Glucose,Whole Blood 183 mg/dL (70-110)
--- NOTE | 2025-01-29 14:54 | FL ---
Modified barium swallow. HISTORY: Dysphagia. Modified barium swallow was performed with the department of speech pathology. The patient was prese nted with various consistencies of barium. There is no evidence for aspiration or penetration. Full report is to follow from the department of speech pathology. Impression: Normal study. [facility], , 01/29/2025 2:52 PM
[2025-01-29 16:33] LABS: Glucose,Whole Blood 301 mg/dL (70-110)
[2025-01-29] MEDS: NYSTATIN 100,000 UNIT/GM POWD 15 GM TOPICAL PRN (16:51)
--- NOTE | 2025-01-29 18:51 | P.PN ---
Subjective Progress Note Date: 01/29/25 Patient is a 69-year-old female with past medical history significant for COPD, chronic hypoxemic respiratory failure, chronic ongoing tobacco use, heart failure, pulmonary embolism, diabetes mellitus type II, hypothyroidism, gastric bypass. Patient recently discharged from hospital on 01/08/2025 to [facility] on the [place] for rehab. She was admitted with acute COPD exacerbation. Sputum culture was positive for multidrug-resistant Pseudomonas aeruginosa. She was treated with a 10-day course of Zerbaxa. Repeat sputum culture showing normal respiratory farooq. Also, previously MRSA was identified in the sputum back on Nov, 2024. Early this morning, patient brought in by EMS from the [facility]. She was noted to be confused at the outside facility. Also, having difficulty breathing. Pulse ox is reading low, around 60%, on 5 L/min nasal cannula. Patient was severel hypoglycemic on arrival with a blood glucose less than 20, and received multiple amps of D50 W and continued on a D5/0.9 saline infusion at 75 mm/h. She was on a sulfonylurea at the outside facility. An ABG was drawn consistent with acute on chronic hypercapnic and hypoxemic respiratory failure. She was placed on BiPAP in the ED. Brain CT did not show any acute intracranial hemorrhage, midline shift, or mass effect. Chest CT angiogram did not show any pulmonary embolism. Appears to be increased bibasilar airspace consolidations, consistent with multi lobar pneumonia and trace parapneumonic effusion. CBC with a WBC count of 22.79, hemoglobin 10, platelets 389. CMP: Sodium 128, potassium 5.1, chloride 87, serum bicarb 36, BUN 31, creatinine 0.44, blood glucose less than 20. LFTs mildly elevated. Lactic acid not elevated. Troponin less than 0.012. NT-proBNP 1250. Urinalysis unremarkable for infection. Most recent blood glucose 82. Currently being evaluated emergency department. She is on BiPAP with settings 16/6 and FiO2 70%. Nonlabored breathing. Achieving good tidal volumes. She is alert and oriented x 3. Does not call recall immediate events prior to hospitalization. No specific complaints at this time other than she would like a drink of water. Admits to occasional cough with phlegm. Denies any hemoptysis, pleurisy. No fevers or chills. Previously started on Levaquin. Denies any nausea, vomiting, diarrhea, abdominal pain. Appetite has been good. She does have a mild tremor, staff lu se is going to check her blood sugar which has been repetitively low. Recently started on D5W with 0.9 at 75 mL/h The patient is seen today January 25, 2025 in follow-up on the selective care unit. She is currently sitting up in bed. Awake and alert in no acute distress. Maintaining O2 saturations in the 90s on 5 L/min per nasal cannula. She is afebrile. Hemodynamically stable. White count 22.2. Hemoglobin 9.3. Platelets 300,000. Sodium 128. Potassium 4.6. Bicarb 36. BUN 23. Creatinine 0.55. Glucose 207. She remains on DuoNeb inhalations, Pulmicort and Perforomist inhalations, Solu-Medrol, Singulair. NicoDerm patch in place. Lovenox for DVT prophylaxis. Remains on antibiotics in the form of Levaquin. The patient is seen today January 26, 2025 in follow-up on the selective care unit. She is currently sitting up in bed. Awake and alert in no acute distress. She is maintained on BiPAP 16/6 and 50% FiO2. Her is at the bedside. Sputum cultures revealing presumptive Staph aureus. Blood culture showing no growth. Sodium 128. Potassium 4.9. Bicarb 37. BUN 27. Creatinine 0.66. Glucose 247. Calcium 9.8. She is continued on DuoNeb inhalations, Pulmicort a nd performance inhalations, IV Solu-Medrol and Singulair. Lovenox for DVT prophylaxis. She remains on Levaquin. NicoDerm patch in place. The patient is seen today January 27, 2025 in follow-up on the selective care unit. She is awake and alert in no acute distress. Currently maintaining O2 satura tions in the high 80s and low 90s on 5 L/min per nasal cannula. Sputum cultures positive for MRSA. Blood culture revealing no growth. White count 26.7. Hemoglobin 10.3. Platelets 298. Sodium 129. Potassium 5.6. Bicarb 39. BUN 32. Creatinine 0.55. Glucose 129. She remains on DuoNeb inhalations, Pulmicort and Perforomist inhalations, IV Solu-Medrol. Remains on Singulair. NicoDerm patch in place. Lovenox for DVT prophylaxis. She remains on antibiotics in the form of Levaquin. The patient is seen today January 28, 2025 in follow-up on the selective care unit. She is currently sitting up in bed. Awake and alert in no acute distress. She is maintaining O2 saturations in the 90s on 6 L/min per nasal cannula. She did utilize BiPAP throughout the night 16/6 and 50% FiO2. She is continued on DuoNeb inhalations, Pulmicort and Perforomist inhalations, IV Solu-Medrol and Singulair. NicoDerm patch remains in place. She is continued on vancomycin. Lovenox for DVT prophylaxis. Remains on oral diuretics. Sputum cultures positive for MRSA. Blood culture reveals no growth. White count 20.5. Hemoglobin 10.4. Platelets 282. Sodium 131. Potassium 5.4. Bicarb 41. BUN 31. Creatinine 0.67. Glucose 169. On today's evaluation of 01/29/2025, the patient is being seen for a follow-up. The patient has chronic hypoxic respiratory failure and the patient has been on oxygen at 5 L/min nasal cannula on outpatient basis. The patient is currently on 3 L/min nasal cannula. She is utilizing the BiPAP overnight at a pressure of 16/6 with an FiO2 of 50%. She remains on DuoNeb nebulizer once [id number]. She is on Perforomist and Pulmicort nebulized treatments twice a day and IV Solu-Medrol and the patient is currently on 40 mg IV every 12 hours. Sputum sample is positive for MRSA and chest x-ray from 01/24/2025 showed patchy bilateral airspace consolidation in the perihilar area and no follow-up chest x-ray has been done since. There are some atelectatic changes in lung base bilaterally. Swallow evaluation was done on 01/29/2025 and shows no evidence of any aspiration. The patient remains on broad-spectrum antibiotics and the patient continues to be on IV vancomycin. Rest of the medications are essentially unchanged. Blood work from today shows a white cell count of 20.9, stable compared to yesterday with a hemoglobin 10.2 and a platelet count of 248. BUN 28 with a creatinine of 0.5 and a sodium level is 132 and a potassium level is at 4.9. Vancomycin level is at 15.7. Patient has diabetes mellitus type 2, previous history of gastric bypass surgery and hypothyroidism. She resides in an ECF. Objective - Vital Signs Vital signs: Vital Signs Temp 97.9 F 01/29/25 03:47 Pulse 88 01/29/25 12:04 Resp 20 01/29/25 11:58 BP 155/73 01/29/25 11:58 Pulse Ox 95 01/29/25 11:59 FiO2 50 01/29/25 04:33 Intake & Output 01/28/25 01/29/25 01/29/25 18:59 06:59 18:59 Intake Total 1920 Output Total 1750 750 Balance 170 -750 Weight 62.5 kg Intake: Oral 1920 Output: Urine 1750 750 Straight 750 Other: Voiding Method Indwelling Catheter External Catheter External Catheter - Exam GENERAL EXAM: Alert, 69-year-old obese female, mild tremor, sitting up in bed, on 8 L nasal cannula, in no apparent distress. HEAD: Normocephalic and atraumatic EYES: Normal reaction of pupils, equal size. NOSE: Clear with pink turbinates. THROAT: No erythema or exudates. NECK: No masses, no JVD. CHEST: No chest wall deformity. LUNGS: Equal air entry with diminished bibasilar lung sounds. Few scattered rhonchi. CVS: S1 and S2 normal with no audible murmur, regular rhythm. No extra heart sounds ABDOMEN: No hepatosplenomegaly, active bowel sounds, no guarding or rigidity. SPINE: No scoliosis or deformity SKIN: No rashes CENTRAL NERVOUS SYSTEM: No focal deficits, tone is normal in all 4 extremities. EXTREMITIES: There is no peripheral edema, clubbing, or cyanosis. Peripheral pulses are intact. - Labs CBC & Chem 7: 01/29/25 07:31 01/29/25 07:31 Labs: Abnormal Lab Results - Last 24 Hours (Table) 01/28/25 01/28/25 01/29/25 Range/Units 16:44 20:02 01:55 WBC (4.50-10.00) 10*3/uL RBC (4.10-5.20) 10*6/uL Hgb (12.0-15.0) g/dL Hct (37.2-46.3) % MCV (80.0-97.0) fL MCHC (32.0-37.0) g/dL MPV (9.5-12.2) fL Immature Gran # (0.00-0.04) 10*3/uL Neutrophils # (1.80-7.70) 10*3/uL Monocytes # (0.20-1.00) 10*3/uL Eosinophils # (0.04-0.35) 10*3/uL Sodium (137-145) mmol/L Chloride (98-107) mmol/L Carbon Dioxide (22-30) mmol/L BUN (7-17) mg/dL Glucose (74-99) mg/dL POC Glucose (mg/dL) 346 H 361 H 145 H (70-110) mg/dL 01/29/25 01/29/25 01/29/25 Range/Units 06:05 07:31 07:31 WBC 20.95 H (4.50-10.00) 10*3/uL RBC 3.42 L (4.10-5.20) 10*6/uL Hgb 10.2 L (12.0-15.0) g/dL Hct 33.7 L (37.2-46.3) % MCV 98.5 H (80.0-97.0) fL MCHC 30.3 L (32.0-37.0) g/dL MPV 8.6 L (9.5-12.2) fL Immature Gran # 0.32 H (0.00-0.04) 10*3/uL Neutrophils # 17.82 H (1.80-7.70) 10*3/uL Monocytes # 1.73 H (0.20-1.00) 10*3/uL Eosinophils # 0.00 L (0.04-0.35) 10*3/uL Sodium 132 L (137-145) mmol/L Chloride 86 L (98-107) mmol/L Carbon Dioxide 41 H* (22-30) mmol/L BUN 28 H (7-17) mg/dL Glucose 133 H (74-99) mg/dL POC Glucose (mg/dL) 165 H (70-110) mg/dL 01/29/25 Range/Units 11:36 WBC (4.50-10.00) 10*3/uL RBC (4.10-5.20) 10*6/uL Hgb (12.0-15.0) g/dL Hct (37.2-46.3) % MCV (80.0-97.0) fL MCHC (32.0-37.0) g/dL MPV (9.5-12.2) fL Immature Gran # (0.00-0.04) 10*3/uL Neutrophils # (1.80-7.70) 10*3/uL Monocytes # (0.20-1.00) 10*3/uL Eosinophils # (0.04-0.35) 10*3/uL Sodium (137-145) mmol/L Chloride (98-107) mmol/L Carbon Dioxide (22-30) mmol/L BUN (7-17) mg/dL Glucose (74-99) mg/dL POC Glucose (mg/dL) 183 H (70-110) mg/dL Assessment and Plan Plan: Acute COPD exacerbation, stable Acute on chronic hypoxic and hypercapnic respiratory failure, secondary to above, repeat chest CT angiogram did not show any pulmonary embolism. Continues to show bibasilar airspace consolidations, which may be increased in my opinion, consistent with multi lobar pneumonia and trace parapneumonic effusion. Sputum cultures positive for MRSA. Currently on vancomycin, currently on 8 L of oxygen by nasal cannula Chronic hypoxic baldev failure maintained on oxygen at 5 L on outpatient basis Severe hypoglycemia, previous on glimepiride which is on hold, improved Altered mental status, secondary to above, improved Moderate fecal retention/constipation Sputum culture from 12/25/2024 positive for multidrug-resistant Pseudomonas aeruginosa, completed 10-day course of Zerbaxa. Repeat sputum culture showing normal respiratory farooq Sputum positive for MRSA 11/27/2024, repeat sputum sample on 01/25/2025 consistent with MRSA Left hemidiaphragm elevation possible paralysis Chronic obstructive pulmonary disease, with an FEV1 64% predicted, Gold stage II Chronic hypoxemic respiratory failure, secondary to combination of above Hyponatremia Leukocytosis Chronic ongoing tobacco dependence Hypothyroidism Hypertension History of mediastinal lymphadenopathy, nonspecific History of gastric bypass surgery Bipolar disorder Fibromyalgia and chronic pain syndrome Plan: Titrate oxygen flow to maintain saturation above 90%, currently on 8 L Sputum culture positive for MRSA Continue vancomycin Continue DuoNeb inhalations Continue Pulmicort and Perforomist inhalations Continue Solu-Medrol NicoDerm patch in place Repeat chest x-ray in the morning Lovenox for DVT prophylaxis Titrate down the FiO2 as tolerated Increase her activity as tolerated We will continue to follow
[2025-01-29 20:09] LABS: Glucose,Whole Blood 232 mg/dL (70-110)
[2025-01-30 02:03] LABS: Glucose,Whole Blood 187 mg/dL (70-110)
[2025-01-30 05:48] LABS: Glucose,Whole Blood 208 mg/dL (70-110)
[2025-01-30 07:02] LABS: Basophils # (A) 0.14 10*3/uL (0.00-0.10); Basophils % (A) 0.7 %; Eosinophils # (A) 0.00 10*3/uL (0.04-0.35); Eosinophils % (A) 0.0 %; HCT 33.6 % (37.2-46.3); HGB 10.3 g/dL (12.0-15.0); Lymphocytes # (A) 1.00 10*3/uL (0.90-5.00); Lymphocytes % (A) 5.1 %; MCH 30.4 pg (27.0-32.0); MCHC 30.7 g/dL (32.0-37.0); MCV 99.1 fL (80.0-97.0); Monocytes # (A) 0.67 10*3/uL (0.20-1.00); Monocytes % (A) 3.4 %; Neutrophils # (A) 16.83 10*3/uL (1.80-7.70); Neutrophils % (A) 86.5 %; Platelet Count 287 10*3/uL (140-440); RBC 3.39 10*6/uL (4.10-5.20); RDW 13.9 % (11.5-14.5); WBC 19.48 10*3/uL (4.50-10.00)
[2025-01-30 07:18] LABS: African American GFR (CKD) >90 (>60 ml/min/1.73 sqM); Blood Urea Nitrogen 27 mg/dL (7-17); Calcium 9.6 mg/dL (8.4-10.2); Chloride 86 mmol/L (98-107); Glucose 187 mg/dL (74-99); Non-African American GFR(CKD) >90 (>60 ml/min/1.73 sqM); Potassium 4.7 mmol/L (3.5-5.1); Sodium 133 mmol/L (137-145)
[2025-01-30 07:25] LABS: Anion Gap 6 mmol/L
[2025-01-30 07:32] LABS: Carbon Dioxide 41 mmol/L (22-30)
--- NOTE | 2025-01-30 07:33 | XR ---
EXAMINATION TYPE: XR chest 2V DATE OF EXAM: 01/30/2025 6:41 AM COMPARISON: Chest radiographs from 01/24/2025. CLINICAL INDICATION: Female, 69 years old with history of reeval, cough, jaun; [facility] TECHNIQUE: XR chest 2V Frontal and lateral views of the chest. FINDINGS: Lungs/Pleura: No evidence of focal consolidation or pneumothorax. Blunting of the costophrenic angles is present. Pulmonary vascularity: Pulmonary vascular congestion. Heart/mediastinum: Cardiomediastinal silhouette is enlarged. Musculoskeletal: No acute osseous pathology. IMPRESSION: Cardiomegaly, pulmonary vascular congestion and bilateral pleural effusions. Correlate with BNP for c ongestive heart failure. [facility], , 01/30/2025 7:31 AM
--- NOTE | 2025-01-30 07:36 | P.PN ---
Subjective Progress Note Date: 01/29/25 This is a pleasant 69-year-old female who presented to the emergency department via EMS from [facility] where patient was at for continued PT/OT therapy from previous admission with significant weakness. Patient was found to be altered and more confused and hypoxic, maintained on chronic 4 to 5 L and having increasing shortness of breath. Patient was sent to the ER for further evaluation. Patient was placed on BiPAP with concerns of possible pneumonia. Patient had extensive pneumonia with positive sputum cultures and previous admission with infectious disease following and had been maintained on prolonged antibiotics. Patient was started on Levaquin by the ER. Chest x-ray on admission shows patchy bilateral airspace consolidations in the perihilar and lung bases consistent with multilobar pneumonia as well as small bilateral effusions noted. CT brain was performed showing no acute intracranial hemorrhage midline shift or mass effect. D-dimer was mildly elevated and patient did undergo CTA which shows no evidence of PE. Patient also underwent CT abdomen pelvis showing some moderate fecal retention correlate for constipation and was started on a bowel regimen. Patient follows with Dr. Wheeler in the outpatient setting, heart failure, asthma, fibromyalgia, GERD, hypertension, osteoarthritis, previous pulmonary embolus back and neck pain with spinal stenosis and cervical disc, scoliosis, significant anxiety, continued ongoing nicotine use, and THC use. Labs revealed a white count of 22.79, platelets 389, D-dimer minimally elevated at 0.73, sodium 128 with a potassium of 5.1, BUN is 31 and creatinine is 0.44 blood sugar was checked and found to be extremely low and treated. Troponin was negative and BNP was 1250. Procalcitonin ordered and pending at this time. Patient had been maintained on continued prednisone taper from previous discharge as well as [id number] breathing treatments. Patient was admitted to the hospital for acute on chronic hypoxic respiratory failure requiring BiPAP exacerbation and concerns of possible multilobar pneumonia. After review of previous admission imaging, opacities and infiltrates appear to be the same. Patient will be continued on BiPAP and wean as tolerated as patient chronically wears 5 L outpatient. Pulmonary consulted as well. Patient was started on Levaquin and breathing treatments and will review and resume appropriate medications once verified. Continue monitoring Accu-Cheks closely. 01/25/2025 Patient seen and evaluated in follow-up this morning continues on BiPAP with extreme anxiety recommend weaning and transitioning to chronic 5 L via nasal cannula. Pulmonary is following maintained on IV steroids along with breathing treatments and Levaquin. Procalcitonin 0.42 and antibiotics being discontinued per pulmonary. Recommend PT/OT therapy evaluation as plan will be to return to [facility] on discharge for continued strength and mobility. Encourage increased activity as tolerated. Mentation is baseline and patient continues to be extremely anxious. Medications adjusted. 01/26/2025 Patient is seen in follow-up today currently off the BiPAP on 5 L and tolerating. Patient is using BiPAP at night and will plan for return to [facility] with BiPAP from 8 PM until 8 AM. Patient is continued on IV steroids and will decrease to 40 mg twice daily. Patient is continued on [id number] breathing treatments and will continue. Pulmonary following and also continued on Levaquin daily. Preliminary sputum culture showing presumptive staph and patient has recently had multiple positive sputum cultures for Pseudomonas and Sabrina and MRSA. Patient to be evaluated by PT/OT therapy today as plan is to return to [facility] for continued strength and mobility. Case management following and has been instructed to submit for insurance authorization which is pending. Follow-up on sputum cultures and continue current regimen with possible discharge planning in the next 24 hours. Patient is extremely high risk for readmission and has had multiple hospitalizations. Will reassess in the a.m. and await pulmonary clearance to determine discharge planning. 01/27/2025 Patient evaluated in follow up on the cardiac unit. Currently on oxygen via nasal cannula at 6L. Continues with productive cough with large amounts of thick brown/green sputum. Patients sputum culture has now come back positive for MRSA. ID was consulted for further management of antibiotic therapy. Patient is not ready for return to [facility]. Today WBC is up to 26.75, hemoglobin 10.3, sodium 29, potassium 5.6, BUN 32, creatinine 0.55. Potassium better at 4.6 after treatment with lokelma. 01/28/2025 Patient evaluated in follow-up in the cardiac unit. She is currently resting comfortably. Continues on oxygen via nasal cannula at 6 L. Continues on IV vancomycin for the sputum positive for MRSA. ID and pulmonology following. White blood cell count down to 20.51, hemoglobin 10.4. Sodium level of 131 potassium 5.4 chloride of 86 CO2 of 41 BUN of 31 creatinine 0.63 01/29/2025 Patient is seen in follow-up today apparently per nursing staff, patient was desatting quickly into the high 80s requiring high flow oxygen currently maintained on 8 L. Patient chronically wears 4 L and will continue to wean FiO2 as tolerated. Patient should continue BiPAP at night from 8 PM to 6 AM and chronic O2 daily. Patient to continue on breathing treatments with pulmonary following. Patient scheduled to undergo swallow study and will be also receiving a PICC line as patient will be maintained on vancomycin outpatient per ID recommendations secondary to MRSA in the sputum. Plan is for [facility] on discharge with case management following and may need to update insurance authorization. Possible discharge planning in the next 24 to 48 hours. Review of systems: Constitutional: No reports of fatigue, fever, or chills, reports continued extreme anxiety Cardiovascular: No reports of chest pain or palpitations Respiratory: reports of continued shortness of breath and occasional cough GI: No reports of nausea, vomiting, or diarrhea : No reports of dysuria or retention Neurovascular: reports of generalized weakness All medications have been reviewed PHYSICAL EXAMINATION: GENERAL: The patient is alert and oriented x3, anxious . Well developed, well nourished. Elderly appearing, chronically ill-appearing, obese HEENT: Pupils are round and equally reacting to light. EOMI. No scleral icterus. No conjunctival pallor. Normocephalic, atraumatic. No pharyngeal erythema. No thyromegaly. CARDIOVASCULAR: S1 and S2 muffled PULMONARY: Diminished breath sounds bilaterally with some scattered expiratory wheezing and faint crackles noted at the bases. Currently on 5 L. Coarse ronchi. ABDOMEN: Soft, obese nontender, nondistended, normoactive bowel sounds. No palpable organomegaly. MUSCULOSKELETAL: No joint swelling or deformity. EXTREMITIES: No cyanosis, clubbing, or pedal edema. NEUROLOGICAL: Gross neurological examination did not reveal any focal deficits. Diffusely weak SKIN: No rashes. Assessment: Shortness of breath with acute on chronic hypoxic respiratory failure secondary to COPD exacerbation Altered mentation on admission, likely metabolic encephalopathy secondary to significant hypoglycemia, improved and at baseline Elevated D-dimer, PE ruled out History of previous sputum culture with Pseudomonas and was maintained on Zerbaxa with infectious disease following for 10 days before discharge to [facility] History of MRSA in the sputum with repeat sputum this admission from 01/25/2025 revealing MRSA Continued ongoing nicotine dependence, patient has not smoked in 3 weeks due to hospitalization and being at [facility] THC use Severe anxiety/depression/bipolar disorder History of hyponatremia hypertension history History of chronic pain and fibromyalgia History of scoliosis Obesity with a BMI of 34.7 GI prophylaxis DVT prophylax Full code Plan: Patient was admitted and placed on BiPAP in the ER currently maintained on BiPAP intermittently at night and is now continued on chronic 5 L; currently saturations are marginal and today has been weaned to 6L of oxygen via nasal cannula. Pulmonary following Levaquin has been discontinued and antibiotics changed to IV vancomycin as sputum has come back revealing MRSA Continue duonebs ID following Home medications reviewed and resumed as appropriate Recommend to continue monitoring Accu-Cheks AC and at bedtime and will continue as needed sliding scale hold oral diabetic agents at this time. Follow-up on repeat labs. Replace electrolytes per protocol PT/OT therapy to evaluate for updated notes as case management is working on discharge planning with plans on returning to [facility] on discharge. Discussed with case management as patient would benefit from BiPAP and patient currently has an FiO2 of 50% and PEEP is 5. Patient will be discharged to [facility] for continued physical therapy once cleared by consultations. Currently awaiting a PICC line to be placed as patient will continue on vancomycin from MRSA in the sputum. Possible discharge planning in the next 24 hours The impression and plan of care has been dictated by Audrey Curtis, Nurse Practitioner as directed. Dr. Micky MD I have performed a history and examination and MDM of this patient, discussed the same with the dictator, and agree with the dictator's assessment and plan as written ,documented as a scribe. Based on total visit time, I have performed more than 50% of the visit. Objective - Vital Signs Vital signs: Vital Signs Temp 97.9 F 01/29/25 03:47 Pulse 79 01/29/25 09:20 Resp 22 01/29/25 09:20 BP 110/72 01/29/25 09:20 Pulse Ox 94 L 01/29/25 09:35 FiO2 50 01/29/25 04:33 Intake & Output 01/28/25 01/29/25 01/29/25 18:59 06:59 18:59 Intake Total 1920 Output Total 1750 750 Balance 170 -750 Weight 62.5 kg Intake: Oral 1920 Output: Urine 1750 750 Straight 750 Other: Voiding Method Indwelling Catheter External Catheter - Labs CBC & Chem 7: 01/30/25 06:08 01/30/25 06:08 Labs: Abnormal Lab Results - Last 24 Hours (Table) 01/28/25 01/28/25 01/28/25 Range/Units 11:57 16:44 20:02 WBC (4.50-10.00) 10*3/uL RBC (4.10-5.20) 10*6/uL Hgb (12.0-15.0) g/dL Hct (37.2-46.3) % MCV (80.0-97.0) fL MCHC (32.0-37.0) g/dL MPV (9.5-12.2) fL Immature Gran # (0.00-0.04) 10*3/uL Neutrophils # (1.80-7.70) 10*3/uL Monocytes # (0.20-1.00) 10*3/uL Eosinophils # (0.04-0.35) 10*3/uL Sodium (137-145) mmol/L Chloride (98-107) mmol/L Carbon Dioxide (22-30) mmol/L BUN (7-17) mg/dL Glucose (74-99) mg/dL POC Glucose (mg/dL) 279 H 346 H 361 H (70-110) mg/dL 01/29/25 01/29/25 01/29/25 Range/Units 01:55 06:05 07:31 WBC (4.50-10.00) 10*3/uL RBC (4.10-5.20) 10*6/uL Hgb (12.0-15.0) g/dL Hct (37.2-46.3) % MCV (80.0-97.0) fL MCHC (32.0-37.0) g/dL MPV (9.5-12.2) fL Immature Gran # (0.00-0.04) 10*3/uL Neutrophils # (1.80-7.70) 10*3/uL Monocytes # (0.20-1.00) 10*3/uL Eosinophils # (0.04-0.35) 10*3/uL Sodium 132 L (137-145) mmol/L Chloride 86 L (98-107) mmol/L Carbon Dioxide 41 H* (22-30) mmol/L BUN 28 H (7-17) mg/dL Glucose 133 H (74-99) mg/dL POC Glucose (mg/dL) 145 H 165 H (70-110) mg/dL 01/29/25 Range/Units 07:31 WBC 20.95 H (4.50-10.00) 10*3/uL RBC 3.42 L (4.10-5.20) 10*6/uL Hgb 10.2 L (12.0-15.0) g/dL Hct 33.7 L (37.2-46.3) % MCV 98.5 H (80.0-97.0) fL MCHC 30.3 L (32.0-37.0) g/dL MPV 8.6 L (9.5-12.2) fL Immature Gran # 0.32 H (0.00-0.04) 10*3/uL Neutrophils # 17.82 H (1.80-7.70) 10*3/uL Monocytes # 1.73 H (0.20-1.00) 10*3/uL Eosinophils # 0.00 L (0.04-0.35) 10*3/uL Sodium (137-145) mmol/L Chloride (98-107) mmol/L Carbon Dioxide (22-30) mmol/L BUN (7-17) mg/dL Glucose (74-99) mg/dL POC Glucose (mg/dL) (70-110) mg/dL
[2025-01-30 09:37] VITALS: TEMP 97.8
[2025-01-30] MEDS: FUROSEMIDE 10 MG/ML 4 ML VIAL IV STA (11:35)
[2025-01-30 11:53] LABS: Glucose,Whole Blood 183 mg/dL (70-110)
[2025-01-30] MEDS: IPRATROPIUM-ALBUTEROL 3 ML NEB INHALATION PRN (12:28)
--- NOTE | 2025-01-30 13:47 | P.PN ---
Subjective Progress Note Date: 01/29/25 Principal diagnosis: Reason for follow-up with MRSA pneumonia Patient is a 69-year-old female with a past medical history significant for COPD history of recurrent pneumonias fibromyalgia hypertension PE presenting to the hospital for evaluation of increasing shortness of breath and cough has been diagnosed with pneumonia sputum positive for MRSA prompting this consultation On today's evaluation that is 01/29/2025, patient has been afebrile, patient is breathing slightly comfortably however still requiring 8 L nasal cannula oxygen, patient denies having any chest pain and cough slightly decreased in intensity, patient denies nausea vomiting or diarrhea and no abdominal pain. Patient white count down to 20.95, creatinine 0.53 Objective - Vital Signs Vital signs: Vital Signs Temp 98.4 F 01/29/25 12:56 Pulse 82 01/29/25 15:24 Resp 19 01/29/25 15:24 BP 155/73 01/29/25 11:58 Pulse Ox 94 L 01/29/25 15:24 FiO2 50 01/29/25 04:33 Intake & Output 01/28/25 01/29/25 01/29/25 18:59 06:59 18:59 Intake Total 1920 Output Total 1750 750 Balance 170 -750 Weight 62.5 kg Intake: Oral 1920 Output: Urine 1750 750 Straight 750 Other: Voiding Method Indwelling Catheter External Catheter Bedside Commode # Voids 3 # Bowel Movements 1 - Exam GENERAL DESCRIPTION: An elderly female lying in bed in no distress RESPIRATORY SYSTEM: Unlabored breathing , coarse breath sounds bilaterally HEART: S1 S2 regular rate and rhythm , ABDOMEN: Soft , no tenderness EXTREMITIES: No edema feet - Labs CBC & Chem 7: 01/30/25 06:08 01/30/25 06:08 Labs: Abnormal Lab Results - Last 24 Hours (Table) 01/28/25 01/28/25 01/29/25 Range/Units 16:44 20:02 01:55 WBC (4.50-10.00) 10*3/uL RBC (4.10-5.20) 10*6/uL Hgb (12.0-15.0) g/dL Hct (37.2-46.3) % MCV (80.0-97.0) fL MCHC (32.0-37.0) g/dL MPV (9.5-12.2) fL Immature Gran # (0.00-0.04) 10*3/uL Neutrophils # (1.80-7.70) 10*3/uL Monocytes # (0.20-1.00) 10*3/uL Eosinophils # (0.04-0.35) 10*3/uL Sodium (137-145) mmol/L Chloride (98-107) mmol/L Carbon Dioxide (22-30) mmol/L BUN (7-17) mg/dL Glucose (74-99) mg/dL POC Glucose (mg/dL) 346 H 361 H 145 H (70-110) mg/dL 01/29/25 01/29/25 01/29/25 Range/Units 06:05 07:31 07:31 WBC 20.95 H (4.50-10.00) 10*3/uL RBC 3.42 L (4.10-5.20) 10*6/uL Hgb 10.2 L (12.0-15.0) g/dL Hct 33.7 L (37.2-46.3) % MCV 98.5 H (80.0-97.0) fL MCHC 30.3 L (32.0-37.0) g/dL MPV 8.6 L (9.5-12.2) fL Immature Gran # 0.32 H (0.00-0.04) 10*3/uL Neutrophils # 17.82 H (1.80-7.70) 10*3/uL Monocytes # 1.73 H (0.20-1.00) 10*3/uL Eosinophils # 0.00 L (0.04-0.35) 10*3/uL Sodium 132 L (137-145) mmol/L Chloride 86 L (98-107) mmol/L Carbon Dioxide 41 H* (22-30) mmol/L BUN 28 H (7-17) mg/dL Glucose 133 H (74-99) mg/dL POC Glucose (mg/dL) 165 H (70-110) mg/dL 01/29/25 Range/Units 11:36 WBC (4.50-10.00) 10*3/uL RBC (4.10-5.20) 10*6/uL Hgb (12.0-15.0) g/dL Hct (37.2-46.3) % MCV (80.0-97.0) fL MCHC (32.0-37.0) g/dL MPV (9.5-12.2) fL Immature Gran # (0.00-0.04) 10*3/uL Neutrophils # (1.80-7.70) 10*3/uL Monocytes # (0.20-1.00) 10*3/uL Eosinophils # (0.04-0.35) 10*3/uL Sodium (137-145) mmol/L Chloride (98-107) mmol/L Carbon Dioxide (22-30) mmol/L BUN (7-17) mg/dL Glucose (74-99) mg/dL POC Glucose (mg/dL) 183 H (70-110) mg/dL Microbiology - Last 24 Hours (Table) 01/25/25 11:49 Legionella Culture - Preliminary Sputum 01/24/25 00:44 Blood Culture - Final Blood Assessment and Plan (1) Multifocal pneumonia Current Visit: Yes Status: Acute Code(s): J18.9 - PNEUMONIA, UNSPECIFIED ORGANISM SNOMED Code(s): 075995875 (2) Allergy to multiple antibiotics Current Visit: No Status: Acute Code(s): Z88.1 - ALLERGY STATUS TO OTHER ANTIBIOTIC AGENTS SNOMED Code(s): 168152945 (3) Leukocytosis Current Visit: No Status: Acute Code(s): D72.829 - ELEVATED WHITE BLOOD CELL COUNT, UNSPECIFIED SNOMED Code(s): 441139399 Plan: 1 Patient presented to the hospital increasing shortness of breath and cough in this patient who did have a tachycardia elevated white count did meet criteria for SIRS/sepsis versus multifocal pneumonia now with a sputum showing MRSA likely the infecting pathogen 2-patient with multiple antibiotic ALLERGIES that would limit the number of antibiotic safe to use 3-patient is afebrile and the patient white count is trending down blood culture has been negative 4patient currently being treated with vancomycin pharmacy to dose Vanco level is therapeutic duration of antibiotic should be 10 days Dictation was produced using [employer] software. please excuse any grammatical, word or spelling errors. Time with Patient: Less than 30
--- NOTE | 2025-01-30 13:48 | P.PN ---
Subjective Progress Note Date: 01/30/25 Principal diagnosis: Reason for follow-up with MRSA pneumonia Patient is a 69-year-old female with a past medical history significant for COPD history of recurrent pneumonias fibromyalgia hypertension PE presenting to the hospital for evaluation of increasing shortness of breath and cough has been diagnosed with pneumonia sputum positive for MRSA prompting this consultation On today's evaluation that is 01/30/2025, Patient is afebrile this morning patient denies having any chest pain eating more comfortably and cough slightly decreased intensity, the patient is currently down to 5 L nasal cannula oxygen patient denies any abdominal pain no diarrhea no nausea no vomiting. The patient white count is down to 19.48 creatinine 0.49 vancomycin trough is therapeutic at 15.7 blood culture has been negative Objective - Vital Signs Vital signs: Vital Signs Temp 97.8 F 01/30/25 09:25 Pulse 84 01/30/25 12:40 Resp 17 01/30/25 11:36 BP 153/76 01/30/25 11:36 Pulse Ox 90 L 01/30/25 11:36 FiO2 50 01/29/25 04:33 Intake & Output 01/29/25 01/30/25 01/30/25 18:59 06:59 18:59 Intake Total 0 Output Total 200 1200 Balance -200 -1200 Weight 67 kg Intake: Oral 0 Output: Urine 200 1200 Other: Voiding Method Bedside Commode Bedside Commode Bedside Commode # Voids 1 1 1 # Bowel Movements 1 - Exam GENERAL DESCRIPTION: An elderly female lying in bed in no distress RESPIRATORY SYSTEM: Unlabored breathing , coarse breath sounds bilaterally HEART: S1 S2 regular rate and rhythm , ABDOMEN: Soft , no tenderness EXTREMITIES: No edema feet - Labs CBC & Chem 7: 01/30/25 06:08 01/30/25 06:08 Labs: Abnormal Lab Results - Last 24 Hours (Table) 01/29/25 01/29/25 01/30/25 Range/Units 16:32 20:08 01:59 WBC (4.50-10.00) 10*3/uL RBC (4.10-5.20) 10*6/uL Hgb (12.0-15.0) g/dL Hct (37.2-46.3) % MCV (80.0-97.0) fL MCHC (32.0-37.0) g/dL MPV (9.5-12.2) fL Immature Gran # (0.00-0.04) 10*3/uL Neutrophils # (1.80-7.70) 10*3/uL Eosinophils # (0.04-0.35) 10*3/uL Basophils # (0.00-0.10) 10*3/uL Sodium (137-145) mmol/L Chloride (98-107) mmol/L Carbon Dioxide (22-30) mmol/L BUN (7-17) mg/dL Creatinine (0.52-1.04) mg/dL Glucose (74-99) mg/dL POC Glucose (mg/dL) 301 H 232 H 187 H (70-110) mg/dL 01/30/25 01/30/25 01/30/25 Range/Units 05:47 06:08 06:08 WBC 19.48 H (4.50-10.00) 10*3/uL RBC 3.39 L (4.10-5.20) 10*6/uL Hgb 10.3 L (12.0-15.0) g/dL Hct 33.6 L (37.2-46.3) % MCV 99.1 H (80.0-97.0) fL MCHC 30.7 L (32.0-37.0) g/dL MPV 9.1 L (9.5-12.2) fL Immature Gran # 0.84 H (0.00-0.04) 10*3/uL Neutrophils # 16.83 H (1.80-7.70) 10*3/uL Eosinophils # 0.00 L (0.04-0.35) 10*3/uL Basophils # 0.14 H (0.00-0.10) 10*3/uL Sodium 133 L (137-145) mmol/L Chloride 86 L (98-107) mmol/L Carbon Dioxide 41 H* (22-30) mmol/L BUN 27 H (7-17) mg/dL Creatinine 0.49 L (0.52-1.04) mg/dL Glucose 187 H (74-99) mg/dL POC Glucose (mg/dL) 208 H (70-110) mg/dL 01/30/25 Range/Units 11:51 WBC (4.50-10.00) 10*3/uL RBC (4.10-5.20) 10*6/uL Hgb (12.0-15.0) g/dL Hct (37.2-46.3) % MCV (80.0-97.0) fL MCHC (32.0-37.0) g/dL MPV (9.5-12.2) fL Immature Gran # (0.00-0.04) 10*3/uL Neutrophils # (1.80-7.70) 10*3/uL Eosinophils # (0.04-0.35) 10*3/uL Basophils # (0.00-0.10) 10*3/uL Sodium (137-145) mmol/L Chloride (98-107) mmol/L Carbon Dioxide (22-30) mmol/L BUN (7-17) mg/dL Creatinine (0.52-1.04) mg/dL Glucose (74-99) mg/dL POC Glucose (mg/dL) 183 H (70-110) mg/dL Microbiology - Last 24 Hours (Table) 01/25/25 11:49 Legionella Culture - Preliminary Sputum 01/24/25 00:44 Blood Culture - Final Blood Assessment and Plan (1) Multifocal pneumonia Current Visit: Yes Status: Acute Code(s): J18.9 - PNEUMONIA, UNSPECIFIED ORGANISM SNOMED Code(s): 039615142 (2) Allergy to multiple antibiotics Current Visit: No Status: Acute Code(s): Z88.1 - ALLERGY STATUS TO OTHER ANTIBIOTIC AGENTS SNOMED Code(s): 721868343 (3) Leukocytosis Current Visit: No Status: Acute Code(s): D72.829 - ELEVATED WHITE BLOOD CELL COUNT, UNSPECIFIED SNOMED Code(s): 940732725 Plan: 1 Patient presented to the hospital increasing shortness of breath and cough in this patient who did have a tachycardia elevated white count did meet criteria for SIRS/sepsis versus multifocal pneumonia now with a sputum showing MRSA likely the infecting pathogen 2-patient with multiple antibiotic ALLERGIES that would limit the number of antibiotic safe to use 3-patient is afebrile and the patient white count is trending down blood culture has been negative 4patient to continue with the vancomycin Vanco level is therapeutic duration of antibiotic should be 10 days currently waiting for placement Dictation was produced using [employer] dictation software. please excuse any gr ammatical, word or spelling errors. Time with Patient: Less than 30
--- NOTE | 2025-01-30 14:22 | P.PN ---
Subjective Progress Note Date: 01/30/25 Patient is a 69-year-old female with past medical history significant for COPD, chronic hypoxemic respiratory failure, chronic ongoing tobacco use, heart failure, pulmonary embolism, diabetes mellitus type II, hypothyroidism, gastric bypass. Patient recently discharged from hospital on 01/08/2025 to [facility] on the [place] for rehab. She was admitted with acute COPD exacerbation. Sputum culture was positive for multidrug-resistant Pseudomonas aeruginosa. She was treated with a 10-day course of Zerbaxa. Repeat sputum culture showing normal respiratory farooq. Also, previously MRSA was identified in the sputum back on Nov, 2024. Early this morning, patient brought in by EMS from the [facility]. She was noted to be confused at the outside facility. Also, having difficulty breathing. Pulse ox is reading low, around 60%, on 5 L/min nasal cannula. Patient was severel hypoglycemic on arrival with a blood glucose less than 20, and received multiple amps of D50 W and continued on a D5/0.9 saline infusion at 75 mm/h. She was on a sulfonylurea at the outside facility. An ABG was drawn consistent with acute on chronic hypercapnic and hypoxemic respiratory failure. She was placed on BiPAP in the ED. Brain CT did not show any acute intracranial hemorrhage, midline shift, or mass effect. Chest CT angiogram did not show any pulmonary embolism. Appears to be increased bibasilar airspace consolidations, consistent with multi lobar pneumonia and trace parapneumonic effusion. CBC with a WBC count of 22.79, hemoglobin 10, platelets 389. CMP: Sodium 128, potassium 5.1, chloride 87, serum bicarb 36, BUN 31, creatinine 0.44, blood glucose less than 20. LFTs mildly elevated. Lactic acid not elevated. Troponin less than 0.012. NT-proBNP 1250. Urinalysis unremarkable for infection. Most recent blood glucose 82. Currently being evaluated emergency department. She is on BiPAP with settings 16/6 and FiO2 70%. Nonlabored breathing. Achieving good tidal volumes. She is alert and oriented x 3. Does not call recall immediate events prior to hospitalization. No specific complaints at this time other than she would like a drink of water. Admits to occasional cough with phlegm. Denies any hemoptysis, pleurisy. No fevers or chills. Previously started on Levaquin. Denies any nausea, vomiting, diarrhea, abdominal pain. Appetite has been good. She does have a mild tremor, staff lu se is going to check her blood sugar which has been repetitively low. Recently started on D5W with 0.9 at 75 mL/h The patient is seen today January 25, 2025 in follow-up on the selective care unit. She is currently sitting up in bed. Awake and alert in no acute distress. Maintaining O2 saturations in the 90s on 5 L/min per nasal cannula. She is afebrile. Hemodynamically stable. White count 22.2. Hemoglobin 9.3. Platelets 300,000. Sodium 128. Potassium 4.6. Bicarb 36. BUN 23. Creatinine 0.55. Glucose 207. She remains on DuoNeb inhalations, Pulmicort and Perforomist inhalations, Solu-Medrol, Singulair. NicoDerm patch in place. Lovenox for DVT prophylaxis. Remains on antibiotics in the form of Levaquin. The patient is seen today January 26, 2025 in follow-up on the selective care unit. She is currently sitting up in bed. Awake and alert in no acute distress. She is maintained on BiPAP 16/6 and 50% FiO2. Her is at the bedside. Sputum cultures revealing presumptive Staph aureus. Blood culture showing no growth. Sodium 128. Potassium 4.9. Bicarb 37. BUN 27. Creatinine 0.66. Glucose 247. Calcium 9.8. She is continued on DuoNeb inhalations, Pulmicort a nd performance inhalations, IV Solu-Medrol and Singulair. Lovenox for DVT prophylaxis. She remains on Levaquin. NicoDerm patch in place. The patient is seen today January 27, 2025 in follow-up on the selective care unit. She is awake and alert in no acute distress. Currently maintaining O2 satura tions in the high 80s and low 90s on 5 L/min per nasal cannula. Sputum cultures positive for MRSA. Blood culture revealing no growth. White count 26.7. Hemoglobin 10.3. Platelets 298. Sodium 129. Potassium 5.6. Bicarb 39. BUN 32. Creatinine 0.55. Glucose 129. She remains on DuoNeb inhalations, Pulmicort and Perforomist inhalations, IV Solu-Medrol. Remains on Singulair. NicoDerm patch in place. Lovenox for DVT prophylaxis. She remains on antibiotics in the form of Levaquin. The patient is seen today January 28, 2025 in follow-up on the selective care unit. She is currently sitting up in bed. Awake and alert in no acute distress. She is maintaining O2 saturations in the 90s on 6 L/min per nasal cannula. She did utilize BiPAP throughout the night 16/6 and 50% FiO2. She is continued on DuoNeb inhalations, Pulmicort and Perforomist inhalations, IV Solu-Medrol and Singulair. NicoDerm patch remains in place. She is continued on vancomycin. Lovenox for DVT prophylaxis. Remains on oral diuretics. Sputum cultures positive for MRSA. Blood culture reveals no growth. White count 20.5. Hemoglobin 10.4. Platelets 282. Sodium 131. Potassium 5.4. Bicarb 41. BUN 31. Creatinine 0.67. Glucose 169. On today's evaluation of 01/29/2025, the patient is being seen for a follow-up. The patient has chronic hypoxic respiratory failure and the patient has been on oxygen at 5 L/min nasal cannula on outpatient basis. The patient is currently on 3 L/min nasal cannula. She is utilizing the BiPAP overnight at a pressure of 16/6 with an FiO2 of 50%. She remains on DuoNeb nebulizer once [id number]. She is on Perforomist and Pulmicort nebulized treatments twice a day and IV Solu-Medrol and the patient is currently on 40 mg IV every 12 hours. Sputum sample is positive for MRSA and chest x-ray from 01/24/2025 showed patchy bilateral airspace consolidation in the perihilar area and no follow-up chest x-ray has been done since. There are some atelectatic changes in lung base bilaterally. Swallow evaluation was done on 01/29/2025 and shows no evidence of any aspiration. The patient remains on broad-spectrum antibiotics and the patient continues to be on IV vancomycin. Rest of the medications are essentially unchanged. Blood work from today shows a white cell count of 20.9, stable compared to yesterday with a hemoglobin 10.2 and a platelet count of 248. BUN 28 with a creatinine of 0.5 and a sodium level is 132 and a potassium level is at 4.9. Vancomycin level is at 15.7. Patient has diabetes mellitus type 2, previous history of gastric bypass surgery and hypothyroidism. She resides in an ECF. On 01/30/2025, the patient is being seen for a follow-up. The patient is 69 with known history of COPD and acute on top of chronic hypoxic respiratory failure secondary to pneumonia. The patient suspects have MRSA pneumonia and the patient is currently on IV vancomycin. Repeat chest x-ray was done this morning on 01/30/2025 and the patient was found to have cardiomegaly with pulm vascular congestion and small bilateral pleural effusions. The patient is having a congested cough. At the time of evaluation, the patient did have a coughing spell that was thought to be related to an aspiration of food particles while eating a sandwich. She is currently on 5 L of oxygen by nasal cannula with a pulse ox of 90%. The white cell count at 19.4 with a heme of 10.3 and the platelet count of 287. BUN is 27 with a creatinine 0.4 and sodium levels at 133. Rest of the medications remain essentially unchanged. She is on Lovenox for DVT prophylaxis. She remains on DuoNeb neb regiment [id number]. She remains on IV Solu-Medrol. She is awake and alert and communicating. The patient resides in ECF. She is known to have obesity with a previous gastric bypass surgery. She is also diabetic, has hypothyroidism, COPD and chronic hypoxic baldev failure. Objective - Vital Signs Vital signs: Vital Signs Temp 97.8 F 01/30/25 09:25 Pulse 80 01/30/25 10:04 Resp 18 01/30/25 09:25 BP 97/56 01/30/25 09:40 Pulse Ox 92 L 01/30/25 09:25 FiO2 50 01/29/25 04:33 Intake & Output 01/29/25 01/30/25 01/30/25 18:59 06:59 18:59 Intake Total 0 Output Total 200 400 Balance -200 -400 Weight 67 kg Intake: Oral 0 Output: Urine 200 400 Other: Voiding Method Bedside Commode Bedside Commode Bedside Commode # Voids 1 1 1 # Bowel Movements 1 - Exam GENERAL EXAM: Alert, 69-year-old obese female, mild tremor, sitting up in bed, on 8 L nasal cannula, in no apparent distress. HEAD: Normocephalic and atraumatic EYES: Normal reaction of pupils, equal size. NOSE: Clear with pink turbinates. THROAT: No erythema or exudates. NECK: No masses, no JVD. CHEST: No chest wall deformity. LUNGS: Equal air entry with diminished bibasilar lung sounds. Few scattered rhonchi. CVS: S1 and S2 normal with no audible murmur, regular rhythm. No extra heart sounds ABDOMEN: No hepatosplenomegaly, active bowel sounds, no guarding or rigidity. SPINE: No scoliosis or deformity SKIN: No rashes CENTRAL NERVOUS SYSTEM: No focal deficits, tone is normal in all 4 extremities. EXTREMITIES: There is no peripheral edema, clubbing, or cyanosis. Peripheral pulses are intact. - Labs CBC & Chem 7: 01/30/25 06:08 01/30/25 06:08 Labs: Abnormal Lab Results - Last 24 Hours (Table) 01/29/25 01/29/25 01/29/25 Range/Units 11:36 16:32 20:08 WBC (4.50-10.00) 10*3/uL RBC (4.10-5.20) 10*6/uL Hgb (12.0-15.0) g/dL Hct (37.2-46.3) % MCV (80.0-97.0) fL MCHC (32.0-37.0) g/dL MPV (9.5-12.2) fL Immature Gran # (0.00-0.04) 10*3/uL Neutrophils # (1.80-7.70) 10*3/uL Eosinophils # (0.04-0.35) 10*3/uL Basophils # (0.00-0.10) 10*3/uL Sodium (137-145) mmol/L Chloride (98-107) mmol/L Carbon Dioxide (22-30) mmol/L BUN (7-17) mg/dL Creatinine (0.52-1.04) mg/dL Glucose (74-99) mg/dL POC Glucose (mg/dL) 183 H 301 H 232 H (70-110) mg/dL 01/30/25 01/30/25 01/30/25 Range/Units 01:59 05:47 06:08 WBC 19.48 H (4.50-10.00) 10*3/uL RBC 3.39 L (4.10-5.20) 10*6/uL Hgb 10.3 L (12.0-15.0) g/dL Hct 33.6 L (37.2-46.3) % MCV 99.1 H (80.0-97.0) fL MCHC 30.7 L (32.0-37.0) g/dL MPV 9.1 L (9.5-12.2) fL Immature Gran # 0.84 H (0.00-0.04) 10*3/uL Neutrophils # 16.83 H (1.80-7.70) 10*3/uL Eosinophils # 0.00 L (0.04-0.35) 10*3/uL Basophils # 0.14 H (0.00-0.10) 10*3/uL Sodium (137-145) mmol/L Chloride (98-107) mmol/L Carbon Dioxide (22-30) mmol/L BUN (7-17) mg/dL Creatinine (0.52-1.04) mg/dL Glucose (74-99) mg/dL POC Glucose (mg/dL) 187 H 208 H (70-110) mg/dL 01/30/25 Range/Units 06:08 WBC (4.50-10.00) 10*3/uL RBC (4.10-5.20) 10*6/uL Hgb (12.0-15.0) g/dL Hct (37.2-46.3) % MCV (80.0-97.0) fL MCHC (32.0-37.0) g/dL MPV (9.5-12.2) fL Immature Gran # (0.00-0.04) 10*3/uL Neutrophils # (1.80-7.70) 10*3/uL Eosinophils # (0.04-0.35) 10*3/uL Basophils # (0.00-0.10) 10*3/uL Sodium 133 L (137-145) mmol/L Chloride 86 L (98-107) mmol/L Carbon Dioxide 41 H* (22-30) mmol/L BUN 27 H (7-17) mg/dL Creatinine 0.49 L (0.52-1.04) mg/dL Glucose 187 H (74-99) mg/dL POC Glucose (mg/dL) (70-110) mg/dL Microbiology - Last 24 Hours (Table) 01/25/25 11:49 Legionella Culture - Preliminary Sputum 01/24/25 00:44 Blood Culture - Final Blood Assessment and Plan Plan: Acute COPD exacerbation, stable Acute on chronic hypoxic and hypercapnic respiratory failure, secondary to above, repeat chest CT angiogram did not show any pulmonary embolism. Continues to show bibasilar airspace consolidations, which may be increased in my opinion, consistent with multi lobar pneumonia and trace parapneumonic effusion. Sputum cultures positive for MRSA. Currently on vancomycin, currently on 5 L of oxygen by nasal cannula. Repeat chest x-ray shows cardiomegaly and small bilateral pleural effusions and chronic atelectatic changes lung bases right more than left. Chronic hypoxic baldev failure maintained on oxygen at 5 L on outpatient basis Severe hypoglycemia, previous on glimepiride which is on hold, improved Altered mental status, secondary to above, improved Moderate fecal retention/constipation Sputum culture from 12/25/2024 positive for multidrug-resistant Pseudomonas aeruginosa, completed 10-day course of Zerbaxa. Repeat sputum culture showing normal respiratory farooq Sputum positive for MRSA 11/27/2024, repeat sputum sample on 01/25/2025 consistent with MRSA Left hemidiaphragm elevation possible paralysis Chronic obstructive pulmonary disease, with an FEV1 64% predicted, Gold stage II Chronic hypoxemic respiratory failure, secondary to combination of above Hyponatremia Leukocytosis Chronic ongoing tobacco dependence Hypothyroidism Hypertension History of mediastinal lymphadenopathy, nonspecific History of gastric bypass surgery Bipolar disorder Fibromyalgia and chronic pain syndrome Plan: Titrate oxygen flow to maintain saturation above 90%, currently on 5 L of O2 nasal cannula Sputum culture positive for MRSA remains on IV vancomycin Continue vancomycin Continue DuoNeb inhalations Continue Pulmicort and Perforomist inhalations Continue Solu-Medrol NicoDerm patch in place Chest x-ray from this morning was noted aspiration precautions Lovenox for DVT prophylaxis Titrate down the FiO2 as tolerated Increase her activity as tolerated We will continue to follow
--- NOTE | 2025-01-30 14:37 | P.DS ---
Providers Date of admission: 01/24/25 04:41 Expected date of discharge: 01/30/25 Attending physician: Megan Esparza Consults: 01/24/25 04:31 Consult Physician Urgent Consulting Provider: Shaw Brannon Consult Reason/Comments: respiratory failure Do you want consulting provider notified?: Yes, Notify in am 01/27/25 10:15 Consult Physician Routine Consulting Provider: Briseida Mcdonald Consult Reason/Comments: pneumonia Do you want consulting provider notified?: Yes Primary care physician: Andrzej Wheeler Hospital Course: Final diagnosis Shortness of breath with acute on chronic hypoxic respiratory failure secondary to COPD exacerbation Altered mentation on admission, metabolic encephalopathy secondary to significant hypoglycemia, improved and at baseline Elevated D-dimer, PE ruled out History of previous sputum culture with Pseudomonas and was maintained on Zerbaxa with infectious disease following for 10 days before discharge to [facility] History of MRSA in the sputum with repeat sputum this admission from 01/25/2025 revealing MRSA, patient has received a PICC line and will continue on 7 days of vancomycin Continued ongoing nicotine dependence, patient has not smoked in 3 weeks due to hospitalization and being at [facility] THC use Severe anxiety/depression/bipolar disorder History of hyponatremia hypertension history History of chronic pain and fibromyalgia History of scoliosis Obesity with a BMI of 34.7 GI prophylaxis DVT prophylax Full code Discharge disposition Patient is being discharged in a stable condition with guarded prognosis to [facility]. Patient will follow-up with Dr. Wheeler in the outpatient setting upon discharge. Patient is to continue with IV vancomycin and has a PICC line and will continue twice daily with pharmacy to dose for the next 7 days per ID recommendations. Strongly recommend outpatient follow-up with pain management, pulmonary, and infectious disease as scheduled. Total time taken is greater than 35 minutes. Hospital course This is a 69-year-old female who was recently admitted with increased shortness of breath and altered mental status multifactorial secondary to COPD exacerbation as well as significant hypoglycemia. Patient with multiple consultations following including pulmonary and infectious disease maintained on BiPAP at night and hence transitioned to her 5 L that she chronically wears and will continue during the day. Continue to recommend BiPAP at night with 16/6 PEEP, 50% FiO2 from 8 PM until 6 AM. Patient will need outpatient follow-up with pulmonary and will continue on IV vancomycin twice daily with pharmacy to dose and has received a PICC line for 7 days due to MRSA in the sputum. Patient is maintained on IV steroids during hospital and has transitioned to oral prednisone and will continue with prednisone taper starting at 40 mg daily and titrating down. Patient with significant weakness will be returning to [facility] on the [place] and has received insurance authorization. Patient to follow-up with pain management as well as infectious disease outpatient on discharge. Please refer to other consultation notes for further HPI. Currently no reports of chest pain, no worsening shortness of breath, or palpitations. Patient is afebrile. Patient continues to have extreme anxiety which is chronic and does take Xanax for this. No reports of nausea or vomiting and patient is tolerating diet. Patient was reevaluated by speech and is continued on a heart healthy consistent carb diet with fluid restrictions of 1500 mL daily and no straws and aspiration precautions. Patient will be going to [facility] the [place] today. Guarded prognosis and extremely high risk for readmissions given significant COPD, anxiety, and multiple comorbidities. Physical exam: Gen: This is a 69-year-old female who is awake, alert and oriented x 3, extremely anxious, well-developed, elderly appearing HEENT: Head is atraumatic, normocephalic. Pupils equal, round. Sclerae is anicteric. NECK: Supple. No JVD. No lymphadenopathy. No thyromegaly. LUNGS: Diminished breath sounds bilaterally with a few scattered expiratory wheezes and coarse rhonchi noted. No intercostal retractions. HEART: S1, S2 are muffled ABDOMEN: Soft. Obese. Bowel sounds are present. No masses. No tenderness. EXTREMITIES: No pedal edema. No calf tenderness. NEUROLOGICAL: Patient is awake, alert and oriented x3. Cranial nerves 2 through 12 are grossly intact. Diffusely weak Please refer to medication reconciliation sheet for a list of medications. The impression and plan of care has been dictated by Audrey Curtis, Nurse Practitioner as directed. Dr. Micky MD I have performed a history and examination and MDM of this patient, discussed the same with the dictator, and agree with the dictator's assessment and plan as written ,documented as a scribe. Based on total visit time, I have performed more than 50% of the visit. Patient Condition at Discharge: Fair Plan - Discharge Summary New Discharge Prescriptions: New INSULIN LISPRO (HumaLOG) [HumaLOG] 0 unit SQ ACHS each Nystatin 100,000 Unit/gm Powd [Mycostatin Powder] 1 applic TOPICAL BID PRN each PRN Reason: Rash ALPRAZolam [Xanax] 0.5 mg PO TID PRN #9 tab PRN Reason: Anxiety Enoxaparin [Lovenox] 40 mg SQ DAILY each Formoterol Fumarate [Perforomist] 20 mcg INHALATION RT-BID ml Vancomycin 1,500 mg IVPB Q12HR 7 Days #14 each Continue Montelukast [Singulair] 10 mg PO HS Levothyroxine Sodium [Synthroid] 150 mcg PO DAILY Ipratropium-Albuterol Nebulize [Duoneb 0.5 mg-3 mg/3 ml Soln] 3 ml INHALATION RT-QID lamoTRIgine [LaMICtal] 100 mg PO BID busPIRone HCL [Buspar] 30 mg PO BID Fluticasone/Umeclidin/Vilanter [Trelegy Ellipta 200-62.5-25] 1 puff INHALATION RT-DAILY Furosemide [Lasix] 20 mg PO DAILY guaiFENesin [Mucinex] 600 mg PO Q8H PRN PRN Reason: Cough bisacodyL [Dulcolax] 10 mg PO DAILY tab Acetaminophen Tab [Tylenol] 650 mg PO Q4H PRN PRN Reason: Pain Cholecalciferol [Vitamin D3 (25 Mcg = 1000 Iu)] 50 mcg PO DAILY Cyanocobalamin [Vitamin B-12] 500 mcg PO DAILY Famotidine [Pepcid] 20 mg PO BID Tamsulosin [Flomax] 0.4 mg PO DAILY Metoprolol Tartrate [Lopressor] 25 mg PO BID Divalproex ER [Depakote ER] 250 mg PO BID #60 tab Gabapentin 300 mg PO TID OLANZapine 15 mg PO HS Venlafaxine HCl [Effexor XR] 150 mg PO DAILY amLODIPine [Norvasc] 5 mg PO BID 30 Days #60 tab Nitroglycerin Sl Tabs [Nitrostat] 0.4 mg SUBLINGUAL Q5M PRN #20 tab PRN Reason: Chest Pain Ipratropium-Albuterol Nebulize [Duoneb 0.5 mg-3 mg/3 ml Soln] 3 ml INHALATION RT-Q4H PRN each PRN Reason: shortness of breath Docusate [Colace] 100 mg PO DAILY cap polyethylene glycoL 3350 [Miralax] 17 gm PO HS packet predniSONE See Taper PO DIRECTED Aspirin 81 mg PO DAILY Nicotine 7Mg/24Hr Patch [Habitrol] 1 patch TRANSDERM DAILY Glimepiride 1 mg PO BID Cyclobenzaprine [Flexeril] 10 mg PO HS Budesonide [Pulmicort] 1 mg INHALATION RT-BID Buprenorphine [Butrans 7.5 MCG/HR] 1 patch TRANSDERM FR #1 patch Changed HYDROcodone/APAP 5-325MG [[place] 5-325] 1 tab PO Q8H PRN #6 tab PRN Reason: Pain Discontinued Insulin Lispro [humaLOG Kwikpen] See Protocol SQ AC-TID lisinopriL [Zestril] 10 mg PO DAILY 30 Days #30 tab Levofloxacin [Levaquin] 500 mg PO DAILY predniSONE 10 mg PO DAILY Discharge Medication List Montelukast [Singulair] 10 mg PO HS 12/17/13 [History] Levothyroxine Sodium [Synthroid] 150 mcg PO DAILY 03/29/20 [History] Famotidine [Pepcid] 20 mg PO BID 09/03/21 [History] Tamsulosin [Flomax] 0.4 mg PO DAILY 10/26/21 [History] Ipratropium-Albuterol Nebulize [Duoneb 0.5 mg-3 mg/3 ml Soln] 3 ml INHALATION RT-QID 11/13/22 [History] lamoTRIgine [LaMICtal] 100 mg PO BID 03/18/24 [History] Metoprolol Tartrate [Lopressor] 25 mg PO BID 05/16/24 [History] Divalproex ER [Depakote ER] 250 mg PO BID #60 tab 05/26/24 [Rx] Gabapentin 300 mg PO TID 06/01/24 [History] busPIRone HCL [Buspar] 30 mg PO BID 06/09/24 [History] Fluticasone/Umeclidin/Vilanter [Trelegy Ellipta 200-62.5-25] 1 puff INHALATION RT-DAILY 10/17/24 [History] OLANZapine 15 mg PO HS 10/17/24 [History] Venlafaxine HCl [Effexor XR] 150 mg PO DAILY 10/17/24 [History] amLODIPine [Norvasc] 5 mg PO BID 30 Days #60 tab 10/21/24 [Rx] Nitroglycerin Sl Tabs [Nitrostat] 0.4 mg SUBLINGUAL Q5M PRN #20 tab 11/30/24 [Rx] Furosemide [Lasix] 20 mg PO DAILY 12/11/24 [History] guaiFENesin [Mucinex] 600 mg PO Q8H PRN 12/24/24 [History] Ipratropium-Albuterol Nebulize [Duoneb 0.5 mg-3 mg/3 ml Soln] 3 ml INHALATION RT-Q4H PRN each 12/26/24 [Rx] Docusate [Colace] 100 mg PO DAILY cap 01/08/25 [Rx] bisacodyL [Dulcolax] 10 mg PO DAILY tab 01/08/25 [Rx] polyethylene glycoL 3350 [Miralax] 17 gm PO HS packet 01/08/25 [Rx] Acetaminophen Tab [Tylenol] 650 mg PO Q4H PRN 01/24/25 [History] Aspirin 81 mg PO DAILY 01/24/25 [History] Budesonide [Pulmicort] 1 mg INHALATION RT-BID 01/24/25 [History] Cholecalciferol [Vitamin D3 (25 Mcg = 1000 Iu)] 50 mcg PO DAILY 01/24/25 [History] Cyanocobalamin [Vitamin B-12] 500 mcg PO DAILY 01/24/25 [History] Cyclobenzaprine [Flexeril] 10 mg PO HS 01/24/25 [History] Glimepiride 1 mg PO BID 01/24/25 [History] Nicotine 7Mg/24Hr Patch [Habitrol] 1 patch TRANSDERM DAILY 01/24/25 [History] predniSONE See Taper PO DIRECTED 01/24/25 [History] ALPRAZolam [Xanax] 0.5 mg PO TID PRN #9 tab 01/30/25 [Rx] Buprenorphine [Butrans 7.5 MCG/HR] 1 patch TRANSDERM FR #1 patch 01/30/25 [Rx] Enoxaparin [Lovenox] 40 mg SQ DAILY each 01/30/25 [Rx] Formoterol Fumarate [Perforomist] 20 mcg INHALATION RT-BID ml 01/30/25 [Rx] HYDROcodone/APAP 5-325MG [[place] 5-325] 1 tab PO Q8H PRN #6 tab 01/30/25 [Rx] INSULIN LISPRO (HumaLOG) [HumaLOG] 0 unit SQ ACHS each 01/30/25 [Rx] Nystatin 100,000 Unit/gm Powd [Mycostatin Powder] 1 applic TOPICAL BID PRN each 01/30/25 [Rx] Vancomycin 1,500 mg IVPB Q12HR 7 Days #14 each 01/30/25 [Rx] Follow up Appointment(s)/Referral(s): Andrzej Wheeler MD [Primary Care Provider] - 1-2 days [facility] on the [place], [NON-STAFF] - 1 Week Briseida Mcdonald MD [STAFF PHYSICIAN] - 1 Week Ana Maria Carr MD [STAFF PHYSICIAN] - 1 Week Activity/Diet/Wound Care/Special Instructions: Patient is going to [facility] the [place] Activity as tolerated Continue taking medications as prescribed Continue with the prednisone taper prior to resuming your daily 10 mg dose Continue with vancomycin IV and has a PICC line for 7 days with pharmacy to dose Recommend repeat labs of CBC, CMP, CRP, Vanco trough per pharmacy
[2025-01-30 15:10] VITALS: BP 131/68; PULSE 82; RESP 18
[2025-01-30 16:32] LABS: Glucose,Whole Blood 287 mg/dL (70-110)
[2025-01-31] MEDS ORDERED: VANCOMYCIN TROUGH DUE 1 EACH MISC MISCELLANE ONE (08:00)
--- NOTE | 2025-02-01 11:47 | CDI ---
Documentation Clarification Form Date: 02/01/2025 11:27:28 AM From: Mariann Potter Admit Date: 01/24/2025 04:41:00 AM Patient Name: Haydee Mcpherson Visit Number: [id number] Discharge Date: 01/30/2025 05:42:00 PM ATTENTION: The Clinical Documentation Specialists (CDI) and [facility] Coding Staff appreciate your assistance in clarifying documentation. Please respond to the clarification below the line at the bottom and electronically sign. The CDI & [facility] Coding staff will review the response and follow-up if needed. Please note: Queries are made part of the Legal Health Record. If you have any questions, please contact the author of this message via ITS. Doctor/Provider: Jenna Weeks Pneumonia is documented per ED note, consult, H and P and PN's 01/25-01/30 and not carried through to DCS. Patient also has positive MRSA sputum culture. Additional clarification regarding the type of pneumonia or if pneumonia is ruled out, is requested. History/Risk Factors: COPD, History of pneumonias, quit smoking 3 weeks ago. Obesity Clinical Indicators: MRSA sputum WBC/Left shift: 22.79 X-ray: consistent with multilobar pneumonia Lung/Breathing assessment acute and chronic hypoxic respiratory failure on Bipap Treatment: Bipap Pneumonia protocol Antibiotics Vancomycin and Levaquin O2 Bipap Please clarify if pneumonia was ruled out, if not, the type of pneumonia, if known: [ x ] MRSA Pneumonia [ ] Bacterial Pneumonia, specify causal organism (if known) [ ] Pneumonia [ ] Pneumonia ruled out [ ] Other bacteria (please specify) [ ] Other, please specify [ ] Unable to determine MTDD
== END 2025-01-30 17:42 | DRG 177 ==
LOC: EC 00:09 → 3SCARD 04:41
PROVIDERS: ADMIT Hospitalist; ATTEND Hospitalist
PROC: 5A09357 Assistance with Respiratory Ventilation, Less than 24 Consecutive Hours, Continuous Positive Airway Pressure (ICD-10-PCS; principal; 2025-01-24)
DX: J15.212 Pneumonia due to Methicillin resistant Staphylococcus aureus (principal); G93.41 Metabolic encephalopathy; J96.21 Acute and chronic respiratory failure with hypoxia; J96.22 Acute and chronic respiratory failure with hypercapnia; J44.0 Chronic obstructive pulmonary disease with (acute) lower respiratory infection; I11.0 Hypertensive heart disease with heart failure; E11.649 Type 2 diabetes mellitus with hypoglycemia without coma; F31.9 Bipolar disorder, unspecified; E03.9 Hypothyroidism, unspecified; E66.9 Obesity, unspecified; J44.1 Chronic obstructive pulmonary disease with (acute) exacerbation; E87.1 Hypo-osmolality and hyponatremia; Z16.24 Resistance to multiple antibiotics; I50.9 Heart failure, unspecified; G89.4 Chronic pain syndrome; Z68.34 Body mass index [BMI] 34.0-34.9, adult; F41.0 Panic disorder [episodic paroxysmal anxiety]; K21.9 Gastro-esophageal reflux disease without esophagitis; M48.02 Spinal stenosis, cervical region; K59.00 Constipation, unspecified; M19.90 Unspecified osteoarthritis, unspecified site; M41.9 Scoliosis, unspecified; M79.7 Fibromyalgia; Z79.51 Long term (current) use of inhaled steroids; Z87.891 Personal history of nicotine dependence; Z79.52 Long term (current) use of systemic steroids; Z79.82 Long term (current) use of aspirin; Z79.84 Long term (current) use of oral hypoglycemic drugs; Z79.890 Hormone replacement therapy; Z79.899 Other long term (current) drug therapy; Z86.711 Personal history of pulmonary embolism; Z87.01 Personal history of pneumonia (recurrent); Z88.1 Allergy status to other antibiotic agents; Z98.84 Bariatric surgery status; Z88.5 Allergy status to narcotic agent; Z88.8 Allergy status to other drugs, medicaments and biological substances
CPT/HCPCS: 36410; 36415; 36573; 36600; 70450; 71045; 71046; 71275; 74177; 74230; 76937; 80048; 80053; 80202; 81003; 82805; 83605; 83735; 83880; 84132; 84145; 84484; 85025; 85379; 85610; 85730; 86140; 87040; 87070; 87077; 87186; 87205; 87449; 93005; 94640; 94660; 94664; 94667; 94760; 96361; 96365; 96366; 96367; 96372; 96375; 96376; 99291

== ENCOUNTER 2025-02-08 09:45 | Inpatient (IN) | payer MEDICARE ==
--- NOTE | 2025-02-08 10:14 | ED ---
SOB HPI - General Chief Complaint: Shortness of Breath Stated Complaint: ИВАН Time Seen by Provider: 02/08/25 09:55 Source: patient, EMS, RN notes reviewed Mode of arrival: EMS Limitations: no limitations - History of Present Illness Initial Comments: 69-year-old female with past medical history of heart failure, COPD, PE who wears 4 to 5 L of home O2 who presents to the emergency department from [facility]. Patient wears a BiPAP at night. Was found with her BiPAP off her face this morning at 9 AM. Patient was in the mid 70s. [facility] gave 3 albuterol treatments and placed her on 10 L high flow. EMS put the patient on a nonrebreather at 6 L. Patient arrives and states that she feels short of breath today and tired. Denies fevers. No nausea or vomiting. Does admit to chest pain. No other alleviating, precipitating or modifying factors - Related Data Home Medications Medication Instructions Recorded Confirmed Montelukast [Singulair] 10 mg PO HS 12/17/13 02/08/25 Levothyroxine Sodium [Synthroid] 150 mcg PO DAILY@0600 03/29/20 02/08/25 Famotidine [Pepcid] 20 mg PO BID 09/03/21 02/08/25 Tamsulosin [Flomax] 0.4 mg PO DAILY 10/26/21 02/08/25 Ipratropium-Albuterol Nebulize 3 ml INHALATION RT-TID@06,12,18 11/13/22 02/08/25 [Duoneb 0.5 mg-3 mg/3 ml Soln] lamoTRIgine [LaMICtal] 100 mg PO BID 03/18/24 02/08/25 Metoprolol Tartrate [Lopressor] 25 mg PO BID 05/16/24 02/08/25 busPIRone HCL [Buspar] 30 mg PO BID 06/09/24 02/08/25 Fluticasone/Umeclidin/Vilanter 1 puff INHALATION RT-DAILY 10/17/24 02/08/25 [Trelegy Ellipta 200-62.5-25] OLANZapine 15 mg PO HS 10/17/24 02/08/25 Venlafaxine HCl [Effexor XR] 150 mg PO DAILY 10/17/24 02/08/25 guaiFENesin [Mucinex] 600 mg PO Q8H PRN 12/24/24 02/08/25 Acetaminophen Tab [Tylenol] 650 mg PO Q4H PRN 01/24/25 02/08/25 Aspirin 81 mg PO DAILY 01/24/25 02/08/25 Budesonide [Pulmicort] 1 mg INHALATION RT-BID 01/24/25 02/08/25 Cholecalciferol [Vitamin D3 (25 50 mcg PO DAILY 01/24/25 02/08/25 Mcg = 1000 Iu)] Cyanocobalamin [Vitamin B-12] 500 mcg PO DAILY 01/24/25 02/08/25 Nicotine 7Mg/24Hr Patch [Habitrol] 1 patch TRANSDERM DAILY 01/24/25 02/08/25 predniSONE 10 mg PO DAILY 01/24/25 02/08/25 0.9 % Sodium Chloride [Sodium 10 ml IV Q12H 02/08/25 02/08/25 Chloride Flush] Arformoterol Tartrate [Brovana] 15 mcg INHALATION RT-BID 02/08/25 02/08/25 Ferrous Sulfate [Iron (65 MG 325 mg PO DAILY 02/08/25 02/08/25 Elemental)] Furosemide [Lasix] 40 mg PO DAILY 02/08/25 02/08/25 INSULIN LISPRO (HumaLOG) [HumaLOG] See Protocol SQ AC-TID@,12,02/08/25 02/08/25 tiZANidine HCL [Zanaflex] 2 mg PO HS 02/08/25 02/08/25 Previous Rx's Medication Instructions Recorded Divalproex ER [Depakote ER] 250 mg PO BID #60 tab 05/26/24 amLODIPine [Norvasc] 5 mg PO BID 30 Days #60 tab 10/21/24 Nitroglycerin Sl Tabs [Nitrostat] 0.4 mg SUBLINGUAL Q5M PRN #20 tab 11/30/24 Ipratropium-Albuterol Nebulize 3 ml INHALATION RT-Q4H PRN each 12/26/24 [Duoneb 0.5 mg-3 mg/3 ml Soln] Docusate [Colace] 100 mg PO DAILY cap 01/08/25 ALPRAZolam [Xanax] 0.5 mg PO TID PRN #9 tab 02/13/25 HYDROcodone/APAP 5-325MG [Basile 1 tab PO Q8H PRN #6 tab 02/13/25 5-325] Heparin Sodium,Porcine (1 ml) 5,000 unit SQ Q12HR each 02/13/25 [Heparin Sodium] Pregabalin [Lyrica] 75 mg PO BID #6 cap 02/13/25 cefTRIAXone [Rocephin] 2 gm IVPB Q24HR each 02/13/25 Allergies Allergy/AdvReac Type Severity Reaction Status Date / Time codeine Allergy Unknown Verified 02/08/25 11:46 Childhood Penicillins Allergy Rash/Hives Verified 02/08/25 11:46 Sulfa (Sulfonamide Allergy Rash/Hives Verified 02/08/25 11:46 Antibiotics) Review of Systems ROS Statement: Those systems with pertinent positive or pertinent negative responses have been documented in the HPI. ROS Other: All systems not noted in ROS Statement are negative. Past Medical History Past Medical History: Asthma, Heart Failure, COPD, Fibromyalgia, GERD/Reflux, Hypertension, Osteoarthritis (OA), Pneumonia, Pulmonary Embolus (PE), Skin Dis order, Thyroid Disorder Additional Past Medical History / Comment(s): Spinal Stenosis, Cervical disc disease/stenosis, scoliosis, numbness/tingling L side of face/neck, hx of L hemidiaphragmatic elevation-possibly genetic, recently bronchitis and past bronchitis, electrolyte problem/kidney function being affected, hx of pulmonary emboli, past bilateral lower extremity cellulitis, edema lower extremities, IBS, hemorrhoids, benign colon polyps, sinus problems, UTIs, bacteremia/sepsis, cardiac murmur, past L ankle and L wrist fractures. History of Any Multi-Drug Resistant Organisms: MRSA, Other MDRO Date of last positivie culture/infection: 01/25/25-MRSA; 12/19/24-Other MDRO MDRO Source:: MRSA-sputum, knee; Other MDRO-sputum Past Surgical History: Bariatric Surgery, Section, Cholecystectomy, Hysterectomy, Tonsillectomy Additional Past Surgical History / Comment(s): EGD, colonoscopies, gastric bypass, surgery for deviated septum, left cataract removal (having laser procedure on that eye 11/24/23) Past Anesthesia/Blood Transfusion Reactions: Previous Problems w/ Anesthesia Additional Past Anesthesia/Blood Transfusion Reaction / Comment(s): itching after hysterectomy, some kind of breathing problem after gastric bypass-not sure what happened Past Psychological History: Anxiety, Bipolar, Depression, Panic Disorder Smoking Status: Current every day smoker Past Alcohol Use History: None Reported Past Drug Use History: Marijuana - Past Family History Mother Family Medical History: Congestive Heart Failure (CHF), Hypertension Father History Unknown: Yes Additional Family Medical History / Comment(s): Father at the age of 45 yrs d/t having had rheumatic fever as a child and heart valve disease. General Exam Limitations: no limitations General appearance: alert, in no apparent distress, obese Head exam: Present: atraumatic, normocephalic, normal inspection Eye exam: Present: normal appearance, PERRL, EOMI. Absent: scleral icterus, conjunctival injection, periorbital swelling ENT exam: Present: normal exam, mucous membranes moist Neck exam: Present: normal inspection. Absent: tenderness, meningismus, lymphadenopathy Respiratory exam: Present: wheezes, decreased breath sounds. Absent: respiratory distress, rales, rhonchi, stridor Cardiovascular Exam: Present: regular rate, normal rhythm, normal heart sounds. Absent: systolic murmur, diastolic murmur, rubs, gallop, clicks GI/Abdominal exam: Present: soft, normal bowel sounds. Absent: distended, tenderness, guarding, rebound, rigid Extremities exam: Present: full ROM, normal capillary refill, pedal edema. Absent: tenderness, joint swelling, calf tenderness Back exam: Present: normal inspection Neurological exam: Present: alert, oriented X3, CN II-XII intact Psychiatric exam: Present: normal affect, normal mood Skin exam: Present: warm, dry, intact, normal color. Absent: rash Course Vital Signs 02/08/25 02/08/25 02/08/25 09:50 10:30 11:00 Temperature 98.3 F Pulse Rate 86 85 84 Respiratory 14 14 14 Rate Blood Pressure 115/54 115/58 122/56 O2 Sat by Pulse 91 L 92 L 93 L Oximetry 02/08/25 02/08/25 02/08/25 11:30 12:00 13:10 Temperature 98.2 F Pulse Rate 101 H 85 89 Respiratory 13 14 17 Rate Blood Pressure 110/49 116/78 118/48 O2 Sat by Pulse 91 L 91 L 93 L Oximetry Medical Decision Making - Medical Decision Making Was pt. sent in by a medical professional or institution (HERMINIA Shepard, ASSOCIATE PROJECT MANAGER, urgent care, hospital, or senior care...) When possible be specific @ -Patient sent in from her extended care facility Did you speak to anyone other than the patient for history (EMS, parent, family, police, friend...)? What history was obtained from this source @ -Spoke with EMS for history Did you review nursing and triage notes (agree or disagree)? Why? @ -I reviewed and agree with nursing and triage notes Were old charts reviewed (outside hosp., previous admission, EMS record, old EKG, old radiological studies, urgent care reports/EKG's, senior care records)? Report findings @ -I reviewed discharge summary from patient's recent hospitalization which was completed on January 31 Differential Diagnosis (chest pain, altered mental status, abdominal pain women, abdominal pain men, vaginal bleeding, weakness, fever, dyspnea, syncope, headache, dizziness, GI bleed, back pain, seizure, CVA, palpatations, mental health, musculoskeletal)? @ -Differential Dyspnea: Coronary syndrome, arrhythmia, tamponade, asthma, COPD, pulmonary embolism, pneumonia, pneumothorax, pulmonary effusion, anaphylaxis, diabetic ketoacidosis, flailed chest, pulmonary contusion, diaphragmatic rupture, anemia, neuromuscular, this is not meant to be an all-inclusive list. EKG interpreted by me (3pts min.). @ -Sinus rhythm with a rate of 85. LA interval 174. QRS 117. QTc of 396. No acute ST segment elevations or depressions X-rays interpreted by me (1pt min.). @ -Yes which demonstrates signs of congestive heart failure CT interpreted by me (1pt min.). @ -None done U/S interpreted by me (1pt. min.). @ -None done What testing was considered but not performed or refused? (CT, X-rays, U/S, labs)? Why? @ -None What meds were considered but not given or refused? Why? @ -None Did you discuss the management of the patient with other professionals (professionals i.e. HERMINIA Shepard, ASSOCIATE PROJECT MANAGER, lab, RT, psych nurse, neonatal social worker, histotechnician, teacher, radio electronics officer, caseworker intake)? Give summary @ -Spoke with Dr. Esparza for admission Was smoking cessation discussed for >3mins.? @ -No Was critical care preformed (if so, how long)? @ -No Were there social determinants of health that impacted care today? How? (Homelessness, low income, unemployed, alcoholism, drug addiction, trans portation, low edu. Level, literacy, decrease access to med. care, usp, rehab)? @ -Patient resides at a rehab Was there de-escalation of care discussed even if they declined (Discuss DNR or withdrawal of care, Hospice)? DNR status @ -No What co-morbidities impacted this encounter? (DM, HTN, Smoking, COPD, CAD, Cancer, CVA, ARF, Chemo, Hep., AIDS, mental health diagnosis, sleep apnea, morbid obesity)? @ -Obesity, CHF Was patient admitted / discharged? Hospital course, mention meds given and r oute, prescriptions, significant lab abnormalities, going to OR and other pertinent info. @ -Discharged. Upon arrival patient seen and evaluated in bed 7. Thorough history and physical exam was performed. IVs established. Laboratory studies are conducted. Chest x-ray was performed. Patient will be admitted. Spoke with Dr. Esparza Undiagnosed new problem with uncertain prognosis? @ -No Drug Therapy requiring intensive monitoring for toxicity (Heparin, Nitro, Insulin, Cardizem)? @ -No Were any procedures done? @ -No Diagnosis/symptom? @ -Acute respiratory insufficiency, chronic respiratory failure, CHF exacerbation, leukocytosis Acute, or Chronic, or Acute on Chronic? @ -Acute Uncomplicated (without systemic symptoms) or Complicated (systemic symptoms)? @ -Complicated Side effects of treatment? @ -No Exacerbation, Progression, or Severe Exacerbation? @ -yes Poses a threat to life or bodily function? How? (Chest pain, [place], [place], pneumonia, PE, COPD, DKA, ARF, appy, cholecystitis, CVA, Diverticulitis, Homicidal, Suicidal, threat to staff... and all critical care pts) @ -No - Lab Data Result diagrams: 02/11/25 08:04 02/11/25 08:04 Lab Results 02/08/25 02/08/25 02/08/25 Range/Units 10:08 10:08 10:08 WBC 22.76 H (4.50-10.00) 10*3/uL RBC 2.95 L (4.10-5.20) 10*6/uL Hgb 9.0 L (12.0-15.0) g/dL Hct 29.3 L (37.2-46.3) % MCV 99.3 H (80.0-97.0) fL MCH 30.5 (27.0-32.0) pg MCHC 30.7 L (32.0-37.0) g/dL Plt Count 279 (140-440) 10*3/uL MPV 8.7 L (9.5-12.2) fL Immature Gran % (Auto) 1.0 % Neutrophils % 79.8 % Lymphocytes % 7.6 % Monocytes % 10.1 % Eosinophils % 1.2 % Basophils % 0.3 % Immature Gran # 0.22 H (0.00-0.04) 10*3/uL Neutrophils # 18.16 H (1.80-7.70) 10*3/uL Lymphocytes # 1.74 (0.90-5.00) 10*3/uL Monocytes # 2.30 H (0.20-1.00) 10*3/uL Eosinophils # 0.27 (0.04-0.35) 10*3/uL Basophils # 0.07 (0.00-0.10) 10*3/uL PT 10.1 (10.0-12.5) sec INR 0.9 (<1.2) APTT 23.6 (22.0-30.0) sec Sodium 132 L (137-145) mmol/L Potassium 4.3 (3.5-5.1) mmol/L Chloride 81 L (98-107) mmol/L Carbon Dioxide 47 H* (22-30) mmol/L Anion Gap 4 mmol/L BUN 18 H (7-17) mg/dL Creatinine 0.46 L (0.52-1.04) mg/dL Est GFR (CKD-EPI)AfAm >90 (>60 ml/min/1.73 sqM) Est GFR (CKD-EPI)NonAf >90 (>60 ml/min/1.73 sqM) Glucose 88 (74-99) mg/dL Plasma Lactic Acid Joel (0.7-2.0) mmol/L Calcium 9.8 (8.4-10.2) mg/dL Total Bilirubin 0.3 (0.2-1.3) mg/dL AST 22 (14-36) U/L ALT 16 (4-34) U/L Alkaline Phosphatase 59 (38-126) U/L Troponin I (0.000-0.034) ng/mL NT-Pro-B Natriuret Pep 316 pg/mL Total Protein 5.1 L (6.3-8.2) g/dL Albumin 2.9 L (3.5-5.0) g/dL 02/08/25 02/08/25 Range/Units 10:08 10:08 WBC (4.50-10.00) 10*3/uL RBC (4.10-5.20) 10*6/uL Hgb (12.0-15.0) g/dL Hct (37.2-46.3) % MCV (80.0-97.0) fL MCH (27.0-32.0) pg MCHC (32.0-37.0) g/dL Plt Count (140-440) 10*3/uL MPV (9.5-12.2) fL Immature Gran % (Auto) % Neutrophils % % Lymphocytes % % Monocytes % % Eosinophils % % Basophils % % Immature Gran # (0.00-0.04) 10*3/uL Neutrophils # (1.80-7.70) 10*3/uL Lymphocytes # (0.90-5.00) 10*3/uL Monocytes # (0.20-1.00) 10*3/uL Eosinophils # (0.04-0.35) 10*3/uL Basophils # (0.00-0.10) 10*3/uL PT (10.0-12.5) sec INR (<1.2) APTT (22.0-30.0) sec Sodium (137-145) mmol/L Potassium (3.5-5.1) mmol/L Chloride (98-107) mmol/L Carbon Dioxide (22-30) mmol/L Anion Gap mmol/L BUN (7-17) mg/dL Creatinine (0.52-1.04) mg/dL Est GFR (CKD-EPI)AfAm (>60 ml/min/1.73 sqM) Est GFR (CKD-EPI)NonAf (>60 ml/min/1.73 sqM) Glucose (74-99) mg/dL Plasma Lactic Acid Joel 0.6 L (0.7-2.0) mmol/L Calcium (8.4-10.2) mg/dL Total Bilirubin (0.2-1.3) mg/dL AST (14-36) U/L ALT (4-34) U/L Alkaline Phosphatase (38-126) U/L Troponin I <0.012 (0.000-0.034) ng/mL NT-Pro-B Natriuret Pep pg/mL Total Protein (6.3-8.2) g/dL Albumin (3.5-5.0) g/dL Disposition Clinical Impression: Pulmonary edema, Hypoxic respiratory failure, Leukocytosis Disposition: ADMITTED IP TO THIS HOSP Condition: Stable Is patient prescribed a controlled substance at d/c from ED?: No Time of Disposition: 12:18 Decision to Admit Reason: Admit from EC Decision Date: 02/08/25 Decision Time: 12:18
[2025-02-08 10:27] LABS: Basophils # (A) 0.07 10*3/uL (0.00-0.10); Basophils % (A) 0.3 %; Eosinophils # (A) 0.27 10*3/uL (0.04-0.35); Eosinophils % (A) 1.2 %; HCT 29.3 % (37.2-46.3); HGB 9.0 g/dL (12.0-15.0); Lymphocytes # (A) 1.74 10*3/uL (0.90-5.00); Lymphocytes % (A) 7.6 %; MCH 30.5 pg (27.0-32.0); MCHC 30.7 g/dL (32.0-37.0); MCV 99.3 fL (80.0-97.0); Monocytes # (A) 2.30 10*3/uL (0.20-1.00); Monocytes % (A) 10.1 %; Neutrophils # (A) 18.16 10*3/uL (1.80-7.70); Neutrophils % (A) 79.8 %; Platelet Count 279 10*3/uL (140-440); RBC 2.95 10*6/uL (4.10-5.20); RDW 14.6 % (11.5-14.5); WBC 22.76 10*3/uL (4.50-10.00)
[2025-02-08 10:35] LABS: ALT 16 U/L (4-34); AST 22 U/L (14-36); African American GFR (CKD) >90 (>60 ml/min/1.73 sqM); Albumin 2.9 g/dL (3.5-5.0); Alkaline Phosphatase 59 U/L (38-126); Blood Urea Nitrogen 18 mg/dL (7-17); Calcium 9.8 mg/dL (8.4-10.2); Chloride 81 mmol/L (98-107); Glucose 88 mg/dL (74-99); INR 0.9 (<1.2); Non-African American GFR(CKD) >90 (>60 ml/min/1.73 sqM); Partial Thromboplastin Time 23.6 sec (22.0-30.0); Potassium 4.3 mmol/L (3.5-5.1); Prothrombin Time 10.1 sec (10.0-12.5); Sodium 132 mmol/L (137-145); Total Protein 5.1 g/dL (6.3-8.2)
--- NOTE | 2025-02-08 10:36 | XR ---
EXAMINATION TYPE: XR chest 2V DATE OF EXAM: 02/08/2025 10:30 AM COMPARISON: 01/30/2025 CLINICAL INDICATION: Female, 69 years old with history of difficulty breathing, shortness of breath TECHNIQUE: AP and lateral views FINDINGS: Heart mildly enlarged. Diffuse interstitial and patchy opacities. Trace bilateral pleural effusions. Very low lung volumes. IMPRESSION: Very low lung volumes but with findings suggesting CHF and interstitial pulmonary edema. Trace bilate ral pleural effusions. [facility], Workstation: [facility], 02/08/2025 10:33 AM
[2025-02-08 10:42] LABS: Anion Gap 4 mmol/L
[2025-02-08 10:44] LABS: NT-Pro-B-Type Natriuretic Pept 316 pg/mL
[2025-02-08 10:58] LABS: Carbon Dioxide 47 mmol/L (22-30)
[2025-02-08] MEDS ORDERED: PNEUMONIA PROTOCOL UTILIZED 1 EACH MISC PO PRN (12:16)
[2025-02-08] MEDS ORDERED: IPRATROPIUM-ALBUTEROL 3 ML NEB INHALATION PRN (12:16)
[2025-02-08] MEDS: FUROSEMIDE 10 MG/ML 4 ML VIAL IV STA (13:00)
[2025-02-08] MEDS: CEFEPIME 2 GM in SODIUM CHLORIDE 0.9% 100 ML IVPB STA (13:06)
[2025-02-08] MEDS ORDERED: NITROGLYCERIN SL TABS 0.4 MG TAB SUBLINGUAL PRN (13:59)
[2025-02-08] MEDS: HYDROcodone/APAP 5-325MG 1 EACH TAB PO PRN (16:59)
[2025-02-08] MEDS: METOPROLOL TARTRATE 25 MG TAB PO SCH (16:59)
[2025-02-08] MEDS: predniSONE 10 MG TAB PO SCH (16:59)
[2025-02-08] MEDS: ALPRAZolam 0.25 MG TAB PO PRN (16:59)
[2025-02-08] MEDS: AZITHROMYCIN 500 MG in SODIUM CHLORIDE 0.9% 250 ML IVPB STA (17:00)
[2025-02-08 17:03] LABS: Glucose,Whole Blood 193 mg/dL (70-110)
[2025-02-08] MEDS: FAMOTIDINE 20 MG TAB PO SCH (19:59)
[2025-02-08] MEDS: lamoTRIgine 100 MG TAB PO SCH (19:59)
[2025-02-08] MEDS: amLODIPine 5 MG TAB PO SCH (19:59)
[2025-02-08] MEDS: PREGABALIN 75 MG CAP PO SCH (19:59)
[2025-02-08] MEDS: MONTELUKAST 10 MG TAB PO SCH (19:59)
[2025-02-08] MEDS: HEPARIN SODIUM,PORCINE 5,000 UNIT/ML 1 ML VIAL SQ SCH (19:59)
[2025-02-08] MEDS ORDERED: BUDESONIDE 1 MG/2 ML NEBU INHALATION SCH (20:00)
[2025-02-08] MEDS ORDERED: ARFORMOTEROL TARTRATE 15 MCG/2 ML INHALATION SCH (20:00)
[2025-02-08 20:06] LABS: Glucose,Whole Blood 191 mg/dL (70-110)
[2025-02-08] MEDS: DIVALPROEX ER 250 MG TAB.ER.24H PO SCH (20:27)
[2025-02-08] MEDS: ACETAMINOPHEN TAB 325 MG TAB PO PRN (20:27)
[2025-02-08] MEDS: INSULIN LISPRO (HumaLOG) 100 UNIT/ML 10 mL VL SQ SCH (20:27)
[2025-02-08] MEDS: SYMBICORT 160-4.5 MCG INHALER INHALATION SCH (21:06)
[2025-02-08] MEDS: IPRATROPIUM-ALBUTEROL 3 ML NEB INHALATION SCH (21:08)
[2025-02-08] MEDS: IPRATROPIUM-ALBUTEROL 3 ML NEB INHALATION PRN (21:08)
[2025-02-08] MEDS: ALPRAZolam 0.25 MG TAB PO STA (22:04)
[2025-02-08] MEDS: CEFEPIME 2 GM in SODIUM CHLORIDE 0.9% 100 ML IVPB SCH (22:04)
--- NOTE | 2025-02-08 23:55 | HP ---
HISTORY AND PHYSICAL CHIEF COMPLAINT: Shortness of breath. HISTORY OF PRESENT ILLNESS: This 69-year-old woman with a past medical history of COPD and CHF, was recently admitted to [facility]. The patient went to [facility] at night, 4-5 L of home O2. The patient was wearing BiPAP at night. Last night, BiPAP fell off and the patient was noted to have shortness of breath and EMS put on non-rebreather. The patient was taken to [facility] for further evaluation. Chest x-ray showed some fluid overload and some CHF also. There is no history of fever, rigors, or chills. CO2 is elevated. PAST MEDICAL HISTORY: COPD, CHF. Rest of the history and chart is also reviewed. HOME MEDICATIONS: Reviewed include Xanax. Dose and rest of medications reviewed. ALLERGIES: Codeine. FAMILY HISTORY: History of CHF. SOCIAL HISTORY: Smoking. REVIEW OF SYSTEMS: Could not be taken due to the patient's condition. PHYSICAL EXAMINATION: VITAL SIGNS: Pulse 89, blood pressure 118/40, and respirations 17. HEENT: Conjunctivae are normal. NECK: No JVD. CARDIOVASCULAR: S1, S2. RESPIRATIONS: A few scattered rhonchi. ABDOMEN: Soft. LEGS: Minimal edema. NERVOUS SYSTEM: Diffusely weak. LABORATORY DATA: Reviewed. ASSESSMENT: 1. Shortness of breath, possibly chronic obstructive pulmonary disease, congestive heart failure, acute exacerbation. 2. Elevated WBC. 3. History of asthma. 4. History of gastroesophageal reflux disease. 5. Degenerative joint disease. 6. History of pulmonary embolism. 7. Multiple complex medical issues. RECOMMENDATIONS: This 69-year-old woman presented with multiple complex medical issues. We will monitor the patient closely. I would recommend diuretics, bronchodilators, empiric antibiotics, Cardiology, Pulmonology consultations. Resume the home medications. Prognosis guarded because of multiple complex medical issues. Further recommendations to follow. See orders for details. MMODL / IJN: [id number] /
[2025-02-09] MEDS: LEVOTHYROXINE 75 MCG TAB PO SCH (05:44)
[2025-02-09 06:25] LABS: Glucose,Whole Blood 169 mg/dL (70-110)
--- NOTE | 2025-02-09 08:41 | XR ---
EXAMINATION TYPE: XR chest 2V DATE OF EXAM: 02/09/2025 8:13 AM COMPARISON: 02/08/2025 CLINICAL INDICATION: Female, 69 years old with history of pneumonia, , TECHNIQUE: AP and lateral views FINDINGS: Heart mild to moderately enlarged. Similar asymmetric elevation left hemidiaphragm. Diffuse bilateral interstitial and patchy opacities persist. Trace pleural effusions on the lateral view. Right PICC t ip seen to the lower SVC level. IMPRESSION: Mild to moderate cardiomegaly with ongoing interstitial pulmonary edema, slightly improved from prior . Patchy bibasilar opacities and trace bilateral pleural effusions persist. [facility], , 02/09/2025 8:39 AM
[2025-02-09] MEDS: IPRATROPIUM-ALBUTEROL 3 ML NEB INHALATION SCH (08:53)
[2025-02-09] MEDS: TIOTROPIUM 2.5 MCG INHALER INHALATION SCH (08:54)
[2025-02-09] MEDS: ASPIRIN 81 MG PO SCH (10:24)
[2025-02-09] MEDS: CHOLECALCIFEROL 25 MCG (1000 IU) TABLET PO SCH (10:24)
[2025-02-09] MEDS: FERROUS SULFATE 325 MG TAB PO SCH (10:25)
[2025-02-09] MEDS: TAMSULOSIN 0.4 MG CAP.ER.24H PO SCH (10:25)
[2025-02-09] MEDS: DOCUSATE 100 MG CAP PO SCH (10:25)
[2025-02-09] MEDS: NICOTINE 7MG/24HR PATCH TRANSDERM SCH (10:26)
[2025-02-09] MEDS: CYANOCOBALAMIN 500 MCG TAB PO SCH (10:26)
[2025-02-09] MEDS: VENLAFAXINE HCL ER 150 MG CAP PO SCH (10:30)
[2025-02-09 11:22] LABS: Glucose,Whole Blood 120 mg/dL (70-110)
[2025-02-09] MEDS ORDERED: VANCOMYCIN IV PER PHARMACY 1 EACH MISC MISCELLANE PRN (11:32)
[2025-02-09] MEDS: AZITHROMYCIN 500 MG in SODIUM CHLORIDE 0.9% 250 ML IVPB SCH (12:13)
--- NOTE | 2025-02-09 13:06 | P.CRDCN ---
History of Present Illness History of present illness: HISTORY OF PRESENT ILLNESS: This is a 69-year-old female with a past medical history significant for congestive heart failure, COPD, pneumonia, lung mass, hypertension, and obesity. Patient follows in the office with Dr. Last. We have been asked to see the patient in consultation for congestive heart failure. Patient examined at the bedside. Patients spouse is at the bedside and providing majority of HPI. Patient states she has not been feeling well for the past couple months and has been in and out of the hospital. She was recently discharged from the hospital and sent to [facility]. She presented back to the hospital due to low oxygen saturations. She denies having any chest pain or pressure. She does report a cough with patel sputum production. She denies any worsening lower extremity edema. She is currently on 5 L nasal cannula. She is a former smoker and stopping smoking about 2-3 months ago. DIAGNOSTICS: - EKG reveals sinus mechanism with LVH. No signs of acute ischemia. - Chest xray mild to moderate cardiomegaly with ongoing interstitial pulmonary edema, slightly improved from prior. Patchy bibasilar opacities and trace bilateral pleural effusions persist. - Laboratory data: WBC 22.76. Hemoglobin 9.0. Platelet count 279. Sodium 132. Potassium 4.3. BUN 18. Creatinine 0.46. Troponin negative x 1. proBNP 316. - Current home cardiac medications include amlodipine 5 mg twice a day, metoprolol tartrate 25 mg twice a day, Lasix 40 mg daily, aspirin 81 mg daily. - Most recent echocardiogram obtained in 03/2024 revealing ejection fraction 55 to 60%, no obvious regional wall motion abnormalities, trace MR -Patient underwent Lexiscan stress test in January 2023 revealing fixed inferior perfusion defect consistent with diaphragmatic attenuation artifact. No other myocardial perfusion defects to suggest ischemia. Ejection fraction 60%. - Cardiac catheterization history: Unknown REVIEW OF SYSTEMS: At the time of my exam: CONSTITUTIONAL: Denies fever or chills. HEENT: Denies blurred vision, vision changes, or eye pain. Denies hemoptysis CARDIOVASCULAR: Denies chest pain. Denies orthopnea. Denies PND. Denies palpitations RESPIRATORY: Reports shortness of breath. GASTROINTESTINAL: Denies abdominal pain. Denies nausea or vomiting. HEMATOLOGIC: Denies bleeding disorders. GENITOURINARY: Denies any blood in urine. SKIN: Denies pruitis. Denies rash. PHYSICAL EXAM: VITAL SIGNS: Reviewed. GENERAL: Well-developed in no acute distress. HEENT: Head is normocephalic. Pupils are equal, round. Sclerae anicteric. Mucous membranes of the mouth are moist. Neck supple. No JVD or thyromegaly LUNGS: Respirations even and unlabored. Lungs with wheezing bilateral HEART: Regular rate and rhythm. S1 and S2 heard. ABDOMEN: Soft. Nondistended. Nontender. EXTREMITIES: Normal range of motion. No clubbing or cyanosis. Peripheral pulses intact. Minimal lower extremity edema NEUROLOGIC: Awake and alert. Oriented x 3. ASSESSMENT: Leukocytosis Acute hypoxic respiratory failure Chronic heart failure with preserved EF History of COPD History of pneumonia History of lung mass Hypertension Obesity: BMI 35.5 PLAN: Patients symptoms appear to be primarily pulmonary in origin and not cardiac Patient does not require IV diuresis at this time. Will resume oral Lasix 40 mg starting tomorrow morning Obtain 2D echo to assess cardiac structure and function Wean oxygen as tolerated Further recommendations pending patient course Nurse practitioner note has been reviewed by physician. Signing provider agrees with the documented findings, assessment, and plan of care documented by FLOOR TECHNICIAN as a scribe. Past Medical History Past Medical History: Asthma, Heart Failure, COPD, Diabetes Mellitus, Fibromyalgia, GERD/Reflux, Hypertension, Osteoarthritis (OA), Pneumonia, Skin Disorder, Thyroid Disorder Additional Past Medical History / Comment(s): Spinal Stenosis, Cervical disc disease/stenosis, scoliosis, hx of L hemidiaphragmatic elevation-possibly genetic, recently bronchitis and past bronchitis, electrolyte problem/kidney function being affected, hx of pulmonary emboli, past bilateral lower extremity cellulitis, edema lower extremities, IBS, hemorrhoids, benign colon polyps, s inus problems, UTIs, bacteremia/sepsis, cardiac murmur, past L ankle and L wrist fractures. History of Any Multi-Drug Resistant Organisms: MRSA, Other MDRO Date of last positivie culture/infection: 01/25/25-MRSA; 12/19/24-Other MDRO MDRO Source:: MRSA-sputum, knee; Other MDRO-sputum Past Surgical History: Bariatric Surgery, Section, Cholecystectomy, Hysterectomy, Tonsillectomy Additional Past Surgical History / Comment(s): EGD, colonoscopies, gastric bypass, surgery for deviated septum, left cataract removal Past Anesthesia/Blood Transfusion Reactions: Previous Problems w/ Anesthesia Additional Past Anesthesia/Blood Transfusion Reaction / Comment(s): itching after hysterectomy, some kind of breathing problem after gastric bypass-not sure what happened Past Psychological History: Anxiety, Bipolar, Depression, Panic Disorder Smoking Status: Former smoker Past Alcohol Use History: None Reported Additional Past Alcohol Use History / Comment(s): quit smoking three months ago Past Drug Use History: None Reported - Past Family History Mother Family Medical History: Congestive Heart Failure (CHF), Hypertension Father History Unknown: Yes Additional Family Medical History / Comment(s): Father at the age of 45 yrs d/t having had rheumatic fever as a child and heart valve disease. Medications and Allergies Home Medications Medication Instructions Recorded Confirmed Type Montelukast [Singulair] 10 mg PO HS 12/17/13 02/08/25 History Levothyroxine Sodium [Synthroid] 150 mcg PO DAILY@0600 03/29/20 02/08/25 History Famotidine [Pepcid] 20 mg PO BID 09/03/21 02/08/25 History Tamsulosin [Flomax] 0.4 mg PO DAILY 10/26/21 02/08/25 History Ipratropium-Albuterol Nebulize 3 ml INHALATION RT-TID@06,12,18 11/13/22 02/08/25 History [Duoneb 0.5 mg-3 mg/3 ml Soln] lamoTRIgine [LaMICtal] 100 mg PO BID 03/18/24 02/08/25 History Metoprolol Tartrate [Lopressor] 25 mg PO BID 05/16/24 02/08/25 History Divalproex ER [Depakote ER] 250 mg PO BID #60 tab 05/26/24 02/08/25 Rx busPIRone HCL [Buspar] 30 mg PO BID 06/09/24 02/08/25 History Fluticasone/Umeclidin/Vilanter 1 puff INHALATION RT-DAILY 10/17/24 02/08/25 History [Trelegy Ellipta 200-62.5-25] OLANZapine 15 mg PO HS 10/17/24 02/08/25 History Venlafaxine HCl [Effexor XR] 150 mg PO DAILY 10/17/24 02/08/25 History amLODIPine [Norvasc] 5 mg PO BID 30 Days #60 tab 10/21/24 02/08/25 Rx Nitroglycerin Sl Tabs [Nitrostat] 0.4 mg SUBLINGUAL Q5M PRN #20 tab 11/30/24 02/08/25 Rx guaiFENesin [Mucinex] 600 mg PO Q8H PRN 12/24/24 02/08/25 History Ipratropium-Albuterol Nebulize 3 ml INHALATION RT-Q4H PRN each 12/26/24 02/08/25 Rx [Duoneb 0.5 mg-3 mg/3 ml Soln] Docusate [Colace] 100 mg PO DAILY cap 01/08/25 02/08/25 Rx Acetaminophen Tab [Tylenol] 650 mg PO Q4H PRN 01/24/25 02/08/25 History Aspirin 81 mg PO DAILY 01/24/25 02/08/25 History Budesonide [Pulmicort] 1 mg INHALATION RT-BID 01/24/25 02/08/25 History Cholecalciferol [Vitamin D3 (25 50 mcg PO DAILY 01/24/25 02/08/25 History Mcg = 1000 Iu)] Cyanocobalamin [Vitamin B-12] 500 mcg PO DAILY 01/24/25 02/08/25 History Nicotine 7Mg/24Hr Patch [Habitrol] 1 patch TRANSDERM DAILY 01/24/25 02/08/25 History predniSONE 10 mg PO DAILY 01/24/25 02/08/25 History ALPRAZolam [Xanax] 0.5 mg PO TID PRN #9 tab 01/30/25 02/08/25 Rx Buprenorphine [Butrans 7.5 MCG/HR] 1 patch TRANSDERM FR #1 patch 01/30/25 02/08/25 Rx HYDROcodone/APAP 5-325MG [[place] 1 tab PO Q8H PRN #6 tab 01/30/25 02/08/25 Rx 5-325] 0.9 % Sodium Chloride [Sodium 10 ml IV Q12H 02/08/25 02/08/25 History Chloride Flush] Arformoterol Tartrate [Brovana] 15 mcg INHALATION RT-BID 02/08/25 02/08/25 History Ferrous Sulfate [Feosol] 325 mg PO DAILY 02/08/25 02/08/25 History Furosemide [Lasix] 40 mg PO DAILY 02/08/25 02/08/25 History HYDROcodone/APAP 7.5-325MG [[place] 1 tab PO Q8H PRN 02/08/25 02/08/25 History 7.5-325] INSULIN LISPRO (HumaLOG) [HumaLOG] See Protocol SQ AC-TID@,,02/08/25 02/08/25 History Pregabalin [Lyrica] 75 mg PO BID 02/08/25 02/08/25 History tiZANidine HCL [Zanaflex] 2 mg PO HS 02/08/25 02/08/25 History Allergies Allergy/AdvReac Type Severity Reaction Status Date / Time codeine Allergy Unknown Verified 02/08/25 11:46 Childhood Penicillins Allergy Rash/Hives Verified 02/08/25 11:46 Sulfa (Sulfonamide Allergy Rash/Hives Verified 02/08/25 11:46 Antibiotics) Physical Exam Vitals: Vital Signs Temp Pulse Pulse Resp BP BP Pulse Ox 02/09/25 09:11 80 02/09/25 08:54 74 97 02/09/25 04:00 98.1 F 81 17 181/74 92 L 02/09/25 02:00 22 02/09/25 00:00 98.4 F 82 20 143/86 90 L 02/08/25 21:24 92 02/08/25 21:09 89 02/08/25 20:00 98.6 F 79 24 115/53 94 L 02/08/25 19:20 02/08/25 18:33 90 L 02/08/25 18:32 88 L 02/08/25 18:30 77 L 02/08/25 15:05 98.1 F 96 22 138/71 91 L 02/08/25 14:31 98.1 F 87 18 120/50 94 L 02/08/25 13:10 98.2 F 89 17 118/48 93 L 02/08/25 12:00 85 14 116/78 91 L 02/08/25 11:30 101 H 13 110/49 91 L 02/08/25 11:00 84 14 122/56 93 L 02/08/25 10:30 85 14 115/58 92 L 02/08/25 09:50 98.3 F 86 14 115/54 91 L FiO2 02/09/25 09:11 02/09/25 08:54 02/09/25 04:00 02/09/25 02:00 02/09/25 00:00 02/08/25 21:24 02/08/25 21:09 02/08/25 20:00 02/08/25 19:20 40 02/08/25 18:33 02/08/25 18:32 02/08/25 18:30 02/08/25 15:05 02/08/25 14:31 02/08/25 13:10 02/08/25 12:00 02/08/25 11:30 02/08/25 11:00 02/08/25 10:30 02/08/25 09:50 Intake and Output 02/08/25 02/09/25 02/09/25 22:59 06:59 14:59 Intake Total 490 0 Output Total 350 Balance 490 -350 0 Intake: IV 10 Invasive Line 1 10 Oral 480 0 Output: Urine 350 Other: Voiding Method External Catheter External Catheter Weight 84.912 kg 82.4 kg Results 02/08/25 10:08 02/08/25 10:08 Cardiac Enzymes 02/08/25 02/08/25 Range/Units 10:08 10:08 AST 22 (14-36) U/L Troponin I <0.012 (0.000-0.034) ng/mL Coagulation 02/08/25 Range/Units 10:08 PT 10.1 (10.0-12.5) sec APTT 23.6 (22.0-30.0) sec CBC 02/08/25 Range/Units 10:08 WBC 22.76 H (4.50-10.00) 10*3/uL RBC 2.95 L (4.10-5.20) 10*6/uL Hgb 9.0 L (12.0-15.0) g/dL Hct 29.3 L (37.2-46.3) % Plt Count 279 (140-440) 10*3/uL Comprehensive Metabolic Panel 02/08/25 Range/Units 10:08 Sodium 132 L (137-145) mmol/L Potassium 4.3 (3.5-5.1) mmol/L Chloride 81 L (98-107) mmol/L Carbon Dioxide 47 H* (22-30) mmol/L BUN 18 H (7-17) mg/dL Creatinine 0.46 L (0.52-1.04) mg/dL Glucose 88 (74-99) mg/dL Calcium 9.8 (8.4-10.2) mg/dL AST 22 (14-36) U/L ALT 16 (4-34) U/L Alkaline Phosphatase 59 (38-126) U/L Total Protein 5.1 L (6.3-8.2) g/dL Albumin 2.9 L (3.5-5.0) g/dL Current Medications Generic Name Dose Route Start Last Admin Trade Name Freq PRN Reason Stop Dose Admin Acetaminophen 650 mg 02/08/25 13:59 02/08/25 20:27 Acetaminophen Tab 325 Mg Tab PO 650 mg Q4H PRN Administration Pain Hydrocodone Bitart/Acetaminophen 1 each 02/08/25 13:59 02/09/25 00:49 Hydrocodone/Apap 5-325mg 1 Each Tab PO 1 each Q8H PRN Administration Pain Albuterol/Ipratropium 3 ml 02/08/25 13:59 02/08/25 21:08 Ipratropium-Albuterol 3 Ml Neb INHALATION 3 ml RT-Q4H PRN Administration shortness of breath Albuterol/Ipratropium 3 ml 02/09/25 08:00 02/09/25 08:53 Ipratropium-Albuterol 3 Ml Neb INHALATION 3 ml RT-TID JEIMY Administration Alprazolam 0.25 mg 02/08/25 13:59 02/09/25 00:49 Alprazolam 0.25 Mg Tab PO 0.25 mg TID PRN Administration Anxiety Amlodipine Besylate 5 mg 02/08/25 21:00 02/08/25 19:59 Amlodipine 5 Mg Tab PO 5 mg BID JEIMY Administration Aspirin 81 mg 02/09/25 09:00 Aspirin 81 Mg PO DAILY JEIMY Budesonide/Formoterol Fumarate 2 puff 02/08/25 20:00 02/09/25 08:53 Symbicort 160-4.5 Mcg Inhaler INHALATION 2 puff RT-BID JEIMY Administration Buspirone HCl 30 mg 02/08/25 21:00 02/08/25 19:59 Buspirone Hcl 10 Mg Tab PO 30 mg BID JEIMY Administration Cholecalciferol 50 mcg 02/09/25 09:00 Cholecalciferol 25 Mcg (1000 Iu) Tablet PO DAILY [facility] Cyanocobalamin 500 mcg 02/09/25 09:00 Cyanocobalamin 500 Mcg Tab PO DAILY [facility] Divalproex Sodium 250 mg 02/08/25 21:00 02/08/25 20:27 Divalproex Er 250 Mg Tab.Er.24h PO 250 mg BID JEIMY Administration Docusate Sodium 100 mg 02/09/25 09:00 Docusate 100 Mg Cap PO DAILY JEIMY Famotidine 20 mg 02/08/25 21:00 02/08/25 19:59 Famotidine 20 Mg Tab PO 20 mg BID JEIMY Administration Ferrous Sulfate 325 mg 02/09/25 09:00 Ferrous Sulfate 325 Mg Tab PO DAILY JEIMY Guaifenesin 600 mg 02/08/25 13:59 Guaifenesin 600 Mg Tablet.Er PO Q8H PRN Cough Heparin Sodium (Porcine) 5,000 unit 02/08/25 21:00 02/08/25 19:59 Heparin Sodium,Porcine 5,000 Unit/Ml 1 Ml Vial SQ 5,000 unit Q12HR JEIMY Administration Cefepime HCl 2 gm/ Sodium 100 mls @ 25 mls/hr 02/08/25 22:00 02/09/25 05:44 Chloride IVPB 25 mls/hr Q8H JEIMY Administration Protocol Azithromycin 500 mg/ Sodium 250 mls @ 250 mls/hr 02/09/25 09:00 Chloride IVPB 02/11/25 08:59 DAILY [facility] Protocol Insulin Human Lispro 0 unit 02/08/25 21:00 02/09/25 06:40 Insulin Lispro (Humalog) 100 Unit/Ml 10 Ml Vl SQ 2 unit ACHS JEIMY Administration Protocol Lamotrigine 100 mg 02/08/25 21:00 02/08/25 19:59 Lamotrigine 100 Mg Tab PO 100 mg BID JEIMY Administration Levothyroxine Sodium 150 mcg 02/09/25 06:00 02/09/25 05:44 Levothyroxine 75 Mcg Tab PO 150 mcg DAILY@0600 JEIMY Administration Metoprolol Tartrate 25 mg 02/08/25 14:15 02/08/25 20:27 Metoprolol Tartrate 25 Mg Tab PO 25 mg BID JEIMY Administration Miscellaneous Information 1 each 02/08/25 12:16 Pneumonia Protocol Utilized 1 Each Misc PO ONCE PRN Per Protocol Montelukast Sodium 10 mg 02/08/25 21:00 02/08/25 19:59 Montelukast 10 Mg Tab PO 10 mg HS JEIMY Administration Nicotine 1 patch 02/09/25 09:00 Nicotine 7mg/24hr Patch TRANSDERM DAILY JEIMY Nitroglycerin 0.4 mg 02/08/25 13:59 Nitroglycerin Sl Tabs 0.4 Mg Tab SUBLINGUAL Q5M PRN Chest Pain Non-Formulary Medication 1 patch 02/09/25 13:59 Buprenorphine [Butrans 7.5 Mcg/Hr] TRANSDERM FR JEIMY Prednisone 10 mg 02/08/25 14:15 02/08/25 16:59 Prednisone 10 Mg Tab PO 10 mg DAILY JEIMY Administration Pregabalin 75 mg 02/08/25 21:00 02/08/25 19:59 Pregabalin 75 Mg Cap PO 75 mg BID JEIMY Administration Tamsulosin HCl 0.4 mg 02/09/25 09:00 Tamsulosin 0.4 Mg Cap.Er.24h PO DAILY JEIMY Tiotropium [place] 2 puff 02/09/25 08:00 02/09/25 08:54 Tiotropium 2.5 Mcg Inhaler INHALATION 2 puff RT-DAILY JEIMY Administration Venlafaxine HCl 150 mg 02/09/25 09:00 Venlafaxine Hcl Er 150 Mg Cap PO DAILY JEIMY Intake and Output 02/08/25 02/09/25 02/09/25 22:59 06:59 14:59 Intake Total 490 0 Output Total 350 Balance 490 -350 0 Intake: IV 10 Invasive Line 1 10 Oral 480 0 Output: Urine 350 Other: Voiding Method External Catheter External Catheter Weight 84.912 kg 82.4 kg 02/08/25 10:08 02/08/25 10:08
[2025-02-09] MEDS: HYDROmorphone 0.5 MG/0.5 ML SYRINGE IVP PRN (13:45)
[2025-02-09] MEDS: VANCOMYCIN 1,500 MG in SODIUM CHLORIDE 0.9% 500 ML 500 ML IVPB SCH (13:56)
[2025-02-09] MEDS: NON FORMULARY DRUG (Buprenorphine [Butrans 7.5 Mcg/Hr] 7.5 MCG/HOUR Patch) TRANSDERM SCH (13:56)
--- NOTE | 2025-02-09 16:08 | P.CNPUL ---
History of Present Illness Consult date: 02/09/25 Requesting physician: Saeed Lai Reason for consult: dyspnea, COPD Chief complaint: Shortness of breath, low O2 saturation History of present illness: This is a 69-year-old female patient appears older than stated age with multiple admissions to the hospital mostly related to COPD. She was recently discharged to [facility] on the [facility]neider however she was brought back here yesterday after being f ound to have O2 saturations in the mid 70s. She is normally oxygen dependent at 4 to 5 L. She is normally BiPAP dependent at night. Chest x-ray shows very low lung volumes findings suggestive of interstitial pulmonary edema with trace pleural effusions. Sputum culture from yesterday is pending. She did have sputum positive MRSA January 25, 2025 and sputum positive Pseudomonas aeruginosa in December 25, 2024. Legionella screen is negative. White count 22.7. Hemoglobin 9.0. Platelets 279. Sodium 132. Potassium 4.3. Bicarb 47. BUN 4018. Creatinine 0.46. Glucose 191. Troponin negative x 1. proBNP 316. She is seen today in consultation on the selective care unit. She is sitting up having breakfast. Awake and alert in no acute distress. Feeling a bit better today compared to yesterday. Maintaining O2 saturation in the low 90s on 5 L high flow nasal cannula. She is afebrile. Hemodynamically stable. Review of Systems REVIEW OF SYSTEMS: CONSTITUTIONAL: Denies any recent significant weight loss or weight gain. EYES: Denies change in vision. EARS, NOSE, MOUTH, THROAT: Denies headaches, denies sore throat. CARDIOVASCULAR: Denies chest pain, palpitations or syncopal episodes. RESPIRATORY: Positive for shortness of breath, cough, congestion no hemoptysis. GASTROINTESTINAL: Denies change in appetite, denies abdominal pain GENITOURINARY: Denies hematuria, denies infections. MUSKULOSKELETAL: Denies pain, denies swelling. INTEGUMENTARY: Denies rash, denies eczema. NEUROLOGICAL: Denies recent memory loss, no recent seizure activity. PSYCHIATRIC: Denies anxiety, denies depression. HEMATOLOGIC/LYMPHATIC: Denies anemia, denies enlarged lymph nodes. Past Medical History Past Medical History: Asthma, Heart Failure, COPD, Diabetes Mellitus, Fibromyalgia, GERD/Reflux, Hypertension, Osteoarthritis (OA), Pneumonia, Skin Disorder, Thyroid Disorder Additional Past Medical History / Comment(s): Spinal Stenosis, Cervical disc disease/stenosis, scoliosis, hx of L hemidiaphragmatic elevation-possibly genetic, recently bronchitis and past bronchitis, electrolyte problem/kidney function being affected, hx of pulmonary emboli, past bilateral lower extremity cellulitis, edema lower extremities, IBS, hemorrhoids, benign colon polyps, sinus problems, UTIs, bacteremia/sepsis, cardiac murmur, past L ankle and L wrist fractures. History of Any Multi-Drug Resistant Organisms: MRSA, Other MDRO Date of last positivie culture/infection: 01/25/25-MRSA; 12/19/24-Other MDRO MDRO Source:: MRSA-sputum, knee; Other MDRO-sputum Past Surgical History: Bariatric Surgery, Section, Cholecystectomy, Hysterectomy, Tonsillectomy Additional Past Surgical History / Comment(s): EGD, colonoscopies, gastric bypass, surgery for deviated septum, left cataract removal Past Anesthesia/Blood Transfusion Reactions: Previous Problems w/ Anesthesia Additional Past Anesthesia/Blood Transfusion Reaction / Comment(s): itching afte r hysterectomy, some kind of breathing problem after gastric bypass-not sure what happened Past Psychological History: Anxiety, Bipolar, Depression, Panic Disorder Smoking Status: Former smoker Past Alcohol Use History: None Reported Additional Past Alcohol Use History / Comment(s): quit smoking three months ago Past Drug Use History: None Reported - Past Family History Mother Family Medical History: Congestive Heart Failure (CHF), Hypertension Father History Unknown: Yes Additional Family Medical History / Comment(s): Father at the age of 45 yrs d/t having had rheumatic fever as a child and heart valve disease. Medications and Allergies Home Medications Medication Instructions Recorded Confirmed Type Montelukast [Singulair] 10 mg PO HS 12/17/13 02/08/25 History Levothyroxine Sodium [Synthroid] 150 mcg PO DAILY@0600 03/29/20 02/08/25 History Famotidine [Pepcid] 20 mg PO BID 09/03/21 02/08/25 History Tamsulosin [Flomax] 0.4 mg PO DAILY 10/26/21 02/08/25 History Ipratropium-Albuterol Nebulize 3 ml INHALATION RT-TID@06,12,18 11/13/22 02/08/25 History [Duoneb 0.5 mg-3 mg/3 ml Soln] lamoTRIgine [LaMICtal] 100 mg PO BID 03/18/24 02/08/25 History Metoprolol Tartrate [Lopressor] 25 mg PO BID 05/16/24 02/08/25 History Divalproex ER [Depakote ER] 250 mg PO BID #60 tab 05/26/24 02/08/25 Rx busPIRone HCL [Buspar] 30 mg PO BID 06/09/24 02/08/25 History Fluticasone/Umeclidin/Vilanter 1 puff INHALATION RT-DAILY 10/17/24 02/08/25 History [Trelegy Ellipta 200-62.5-25] OLANZapine 15 mg PO HS 10/17/24 02/08/25 History Venlafaxine HCl [Effexor XR] 150 mg PO DAILY 10/17/24 02/08/25 History amLODIPine [Norvasc] 5 mg PO BID 30 Days #60 tab 10/21/24 02/08/25 Rx Nitroglycerin Sl Tabs [Nitrostat] 0.4 mg SUBLINGUAL Q5M PRN #20 tab 11/30/24 02/08/25 Rx guaiFENesin [Mucinex] 600 mg PO Q8H PRN 12/24/24 02/08/25 History Ipratropium-Albuterol Nebulize 3 ml INHALATION RT-Q4H PRN each 12/26/24 02/08/25 Rx [Duoneb 0.5 mg-3 mg/3 ml Soln] Docusate [Colace] 100 mg PO DAILY cap 01/08/25 02/08/25 Rx Acetaminophen Tab [Tylenol] 650 mg PO Q4H PRN 01/24/25 02/08/25 History Aspirin 81 mg PO DAILY 01/24/25 02/08/25 History Budesonide [Pulmicort] 1 mg INHALATION RT-BID 01/24/25 02/08/25 History Cholecalciferol [Vitamin D3 (25 50 mcg PO DAILY 01/24/25 02/08/25 History Mcg = 1000 Iu)] Cyanocobalamin [Vitamin B-12] 500 mcg PO DAILY 01/24/25 02/08/25 History Nicotine 7Mg/24Hr Patch [Habitrol] 1 patch TRANSDERM DAILY 01/24/25 02/08/25 History predniSONE 10 mg PO DAILY 01/24/25 02/08/25 History ALPRAZolam [Xanax] 0.5 mg PO TID PRN #9 tab 01/30/25 02/08/25 Rx Buprenorphine [Butrans 7.5 MCG/HR] 1 patch TRANSDERM FR #1 patch 01/30/25 02/08/25 Rx HYDROcodone/APAP 5-325MG [Ridge 1 tab PO Q8H PRN #6 tab 01/30/25 02/08/25 Rx 5-325] 0.9 % Sodium Chloride [Sodium 10 ml IV Q12H 02/08/25 02/08/25 History Chloride Flush] Arformoterol Tartrate [Brovana] 15 mcg INHALATION RT-BID 02/08/25 02/08/25 History Ferrous Sulfate [Feosol] 325 mg PO DAILY 02/08/25 02/08/25 History Furosemide [Lasix] 40 mg PO DAILY 02/08/25 02/08/25 History HYDROcodone/APAP 7.5-325MG [Ridge 1 tab PO Q8H PRN 02/08/25 02/08/25 History 7.5-325] INSULIN LISPRO (HumaLOG) [HumaLOG] See Protocol SQ AC-TID@08,12,17 02/08/25 02/08/25 History Pregabalin [Lyrica] 75 mg PO BID 02/08/25 02/08/25 History tiZANidine HCL [Zanaflex] 2 mg PO HS 02/08/25 02/08/25 History Allergies Allergy/AdvReac Type Severity Reaction Status Date / Time codeine Allergy Unknown Verified 02/08/25 11:46 Childhood Penicillins Allergy Rash/Hives Verified 02/08/25 11:46 Sulfa (Sulfonamide Allergy Rash/Hives Verified 02/08/25 11:46 Antibiotics) Physical Exam Vitals: Vital Signs Temp Pulse Pulse Resp BP Pulse Ox FiO2 02/09/25 15:06 84 02/09/25 14:55 80 02/09/25 11:35 84 18 126/56 92 L 02/09/25 10:10 98.3 F 89 18 153/73 92 L 02/09/25 09:11 80 02/09/25 08:54 74 97 02/09/25 04:00 98.1 F 81 17 181/74 92 L 02/09/25 02:00 22 02/09/25 00:00 98.4 F 82 20 143/86 90 L 02/08/25 21:24 92 02/08/25 21:09 89 02/08/25 20:00 98.6 F 79 24 115/53 94 L 02/08/25 19:20 40 02/08/25 18:33 90 L 02/08/25 18:32 88 L 02/08/25 18:30 77 L Intake and Output 02/09/25 02/09/25 02/09/25 06:59 14:59 22:59 Intake Total 0 Output Total 350 850 Balance -350 -850 Intake: Oral 0 Output: Urine 350 850 Other: Voiding Method External Catheter External Catheter # Voids 3 Weight 82.4 kg GENERAL EXAM: Alert, 69-year-old female, appears older than stated age, on 5 L high flow nasal cannula, fairly comfortable in no apparent distress. HEAD: Normocephalic. EYES: Normal reaction of pupils, equal size. NOSE: Clear with pink turbinates. THROAT: No erythema or exudates. NECK: No masses, no JVD. CHEST: No chest wall deformity. LUNGS: Equal air entry with few scattered rhonchi, crackles in the posterior bases. CVS: S1 and S2 normal with no audible murmur, regular rhythm. ABDOMEN: No hepatosplenomegaly, normal bowel sounds, no guarding or rigidity. SPINE: No scoliosis or deformity SKIN: No rashes CENTRAL NERVOUS SYSTEM: No focal deficits, tone is normal in all 4 extremities. EXTREMITIES: There is 1+ peripheral edema. No clubbing, no cyanosis. Peripheral pulses are intact. Results - Laboratory Findings CBC and BMP: 02/08/25 10:08 02/08/25 10:08 PT/INR, D-dimer PT 10.1 sec (10.0-12.5) 02/08/25 10:08 INR 0.9 (<1.2) 02/08/25 10:08 Abnormal lab findings: Abnormal Labs 02/08/25 02/08/25 02/08/25 10:08 10:08 10:08 WBC 22.76 H RBC 2.95 L Hgb 9.0 L Hct 29.3 L MCV 99.3 H MCHC 30.7 L MPV 8.7 L Immature Gran # 0.22 H Neutrophils # 18.16 H Monocytes # 2.30 H Sodium 132 L Chloride 81 L Carbon Dioxide 47 H* BUN 18 H Creatinine 0.46 L POC Glucose (mg/dL) Plasma Lactic Acid Joel 0.6 L Total Protein 5.1 L Albumin 2.9 L 02/08/25 02/08/25 02/09/25 16:56 20:04 06:24 WBC RBC Hgb Hct MCV MCHC MPV Immature Gran # Neutrophils # Monocytes # Sodium Chloride Carbon Dioxide BUN Creatinine POC Glucose (mg/dL) 193 H 191 H 169 H Plasma Lactic Acid Joel Total Protein Albumin 02/09/25 11:16 WBC RBC Hgb Hct MCV MCHC MPV Immature Gran # Neutrophils # Monocytes # Sodium Chloride Carbon Dioxide BUN Creatinine POC Glucose (mg/dL) 120 H Plasma Lactic Acid Joel Total Protein Albumin - Diagnostic Findings Chest x-ray: image reviewed Assessment and Plan Assessment: Acute on chronic hypoxic and hypercapnic respiratory failure secondary to an acute exacerbation of chronic obstructive pulmonary disease and possible underlying pneumonia. Recent sputum culture positive for MRSA January 25, 2025 and a previous sputum culture positive for Pseudomonas aeruginosa on December 22, 2024 Multiple admissions for the same most recently discharged to [facility] on 01/30/2025 History of hypoglycemia with altered mental status Left hemidiaphragm elevation Chronic obstructive pulmonary disease with an FEV1 value 64% of predicted Chronic hypoxemic respiratory failure maintained on oxygen 4 to 5 L Chronic tobacco dependence Hypothyroidism Hypertension History of mediastinal lymphadenopathy History of gastric bypass surgery History of bipolar disorder History of fibromyalgia with chronic pain syndrome History of anxiety Poor overall functional performance based on the above-mentioned multiple comorbidities Plan: The patient was seen and evaluated Chest x-ray, labs and medications reviewed Sputum culture pending Initiated on cefepime and vancomycin Continued on DuoNeb inhalations Continued on Symbicort Continued on Mucinex Continued on Singulair Continued on prednisone Heparin for DVT prophylaxis Home medications reviewed Educated regarding smoking cessation NicoDerm patch in place Plan is to return to [facility] at discharge We will continue to follow and make further recommendations based on her clinical status I have personally seen and examined the patient, performed the documentation and the assessment and plan as written. Number of minutes spent on the visit: 20 Dictation was produced using [employer] dictation software. Please excuse any grammatical, word or spelling errors.
[2025-02-09 16:17] LABS: Glucose,Whole Blood 226 mg/dL (70-110)
[2025-02-09 20:14] LABS: Glucose,Whole Blood 308 mg/dL (70-110)
[2025-02-10 06:15] LABS: Glucose,Whole Blood 99 mg/dL (70-110)
--- NOTE | 2025-02-10 06:50 | P.PN ---
Subjective Progress Note Date: 02/09/25 This is a 69-year-old female who was recently at [facility] found to be hypoxic and found without her BiPAP and oxygen on and sent here for further evaluation. Patient does have significant history of COPD and CHF and does wear a BiPAP at night. Patient chronically wears 4 to 5 L nasal cannula daily. Chest x-ray appears to have some volume overload with history of CHF and cardiology consulted and pending at this time. Pulmonary following as well and will continue with current regimen. Awaiting sputum and blood cultures at this time. Patient was recently hospitalized for an extended period of stay requiring antibiotics and had completed antibiotic therapy prior to discharge to ECF. Patient's white count remains elevated with a component of reactivity secondary to steroid use. Patient will continue on [id number] DuoNeb treatments and current regimen per pulmonary. Patient is reporting her pain is severe 10/10 and requesting more for pain. Patient continues with anxiety which is chronic and will continue current regimen. Plan is for patient to return to ECF although will require updated PT/OT notes along with insurance authorization. Case management is following and awaiting PT/OT therapy. Review of systems: Constitutional: reports of fatigue, no fever, or chills Cardiovascular: No reports of chest pain or palpitations Respiratory: reports of continued shortness of breath or cough GI: No reports of nausea, no reports of vomiting : No reports of dysuria or retention Neurovascular: reports of generalized weakness All medications have been reviewed Active Medications Acetaminophen (Acetaminophen Tab 325 Mg Tab) 650 mg PO Q4H PRN PRN Reason: Pain Last Admin: 02/08/25 20:27 Dose: 650 mg Hydrocodone Bitart/Acetaminophen (Hydrocodone/Apap 5-325mg 1 Each Tab) 1 each PO Q8H PRN PRN Reason: Pain Last Admin: 02/09/25 21:10 Dose: 1 each Albuterol/Ipratropium (Ipratropium-Albuterol 3 Ml Neb) 3 ml INHALATION RT-Q4H PRN PRN Reason: shortness of breath Last Admin: 02/08/25 21:08 Dose: 3 ml Albuterol/Ipratropium (Ipratropium-Albuterol 3 Ml Neb) 3 ml INHALATION RT-TID JEIMY Last Admin: 02/09/25 20:56 Dose: 3 ml Alprazolam (Alprazolam 0.25 Mg Tab) 0.25 mg PO TID PRN PRN Reason: Anxiety Last Admin: 02/10/25 01:53 Dose: 0.25 mg Amlodipine Besylate (Amlodipine 5 Mg Tab) 5 mg PO BID [facility] Last Admin: 02/09/25 21:06 Dose: 5 mg Aspirin (Aspirin 81 Mg) 81 mg PO DAILY [facility] Last Admin: 02/09/25 10:24 Dose: 81 mg Budesonide/Formoterol Fumarate (Symbicort 160-4.5 Mcg Inhaler) 2 puff INHALATION RT-BID [facility] Last Admin: 02/09/25 20:56 Dose: 2 puff Buspirone HCl (Buspirone Hcl 10 Mg Tab) 30 mg PO BID [facility] Last Admin: 02/09/25 21:07 Dose: 30 mg Cholecalciferol (Cholecalciferol 25 Mcg (1000 Iu) Tablet) 50 mcg PO DAILY [facility] Last Admin: 02/09/25 10:24 Dose: 50 mcg Cyanocobalamin (Cyanocobalamin 500 Mcg Tab) 500 mcg PO DAILY [facility] Last Admin: 02/09/25 10:26 Dose: 500 mcg Divalproex Sodium (Divalproex Er 250 Mg Tab.Er.24h) 250 mg PO BID [facility] Last Admin: 02/09/25 21:07 Dose: 250 mg Docusate Sodium (Docusate 100 Mg Cap) 100 mg PO DAILY [facility] Last Admin: 02/09/25 10:25 Dose: 100 mg Famotidine (Famotidine 20 Mg Tab) 20 mg PO BID [facility] Last Admin: 02/09/25 21:06 Dose: 20 mg Ferrous Sulfate (Ferrous Sulfate 325 Mg Tab) 325 mg PO DAILY [facility] Last Admin: 02/09/25 10:25 Dose: 325 mg Furosemide (Furosemide 40 Mg Tab) 40 mg PO DAILY [facility] Guaifenesin (Guaifenesin 600 Mg Tablet.Er) 600 mg PO Q8H PRN PRN Reason: Cough Heparin Sodium (Porcine) (Heparin Sodium,Porcine 5,000 Unit/Ml 1 Ml Vial) 5,000 unit SQ Q12HR [facility] Last Admin: 02/09/25 21:07 Dose: 5,000 unit Hydromorphone HCl (Hydromorphone 0.5 Mg/0.5 Ml Syringe) 0.5 mg IVP Q6HR PRN PRN Reason: Severe Pain (Scale 7 to 10) Last Admin: 02/10/25 05:30 Dose: 0.5 mg Cefepime HCl 2 gm/ Sodium (Chloride) 100 mls @ 25 mls/hr IVPB Q8H [facility]; Protocol Last Admin: 02/09/25 21:08 Dose: 25 mls/hr Vancomycin HCl 1,500 mg/ (Sodium Chloride) 500 mls @ 167 mls/hr IVPB Q12HR [facility] Last Admin: 02/09/25 21:07 Dose: 167 mls/hr Insulin Human Lispro (Insulin Lispro (Humalog) 100 Unit/Ml 10 Ml Vl) 0 unit SQ ACHS [facility]; Protocol Last Admin: 02/09/25 21:07 Dose: 8 unit Lamotrigine (Lamotrigine 100 Mg Tab) 100 mg PO BID [facility] Last Admin: 02/09/25 21:06 Dose: 100 mg Levothyroxine Sodium (Levothyroxine 75 Mcg Tab) 150 mcg PO DAILY@0600 [facility] Last Admin: 02/09/25 05:44 Dose: 150 mcg Metoprolol Tartrate (Metoprolol Tartrate 25 Mg Tab) 25 mg PO BID [facility] Last Admin: 02/09/25 21:07 Dose: 25 mg Miscellaneous Information (Pneumonia Protocol Utilized 1 Each Misc) 1 each PO ONCE PRN PRN Reason: Per Protocol Montelukast Sodium (Montelukast 10 Mg Tab) 10 mg PO HS [facility] Last Admin: 02/09/25 21:06 Dose: 10 mg Nicotine (Nicotine 7mg/24hr Patch) 1 patch TRANSDERM DAILY [facility] Last Admin: 02/09/25 10:26 Dose: Not Given Nitroglycerin (Nitroglycerin Sl Tabs 0.4 Mg Tab) 0.4 mg SUBLINGUAL Q5M PRN PRN Reason: Chest Pain Non-Formulary Medication (Buprenorphine [Butrans 7.5 Mcg/Hr]) 1 patch TRANSDERM FR [facility] Last Admin: 02/09/25 13:56 Dose: Not Given Prednisone (Prednisone 10 Mg Tab) 10 mg PO DAILY [facility] Last Admin: 02/09/25 10:24 Dose: 10 mg Pregabalin (Pregabalin 75 Mg Cap) 75 mg PO BID [facility] Last Admin: 02/09/25 21:07 Dose: 75 mg Tamsulosin HCl (Tamsulosin 0.4 Mg Cap.Er.24h) 0.4 mg PO DAILY [facility] Last Admin: 02/09/25 10:25 Dose: 0.4 mg Tiotropium [place] (Tiotropium 2.5 Mcg Inhaler) 2 puff INHALATION RT-DAILY [facility] Last Admin: 02/09/25 08:54 Dose: 2 puff Venlafaxine HCl (Venlafaxine Hcl Er 150 Mg Cap) 150 mg PO DAILY [facility] Last Admin: 02/09/25 10:30 Dose: 150 mg PHYSICAL EXAMINATION: GENERAL: The patient is alert and oriented x 3, anxious and tearful on exam, well developed, elderly appearing, obese HEENT: Pupils are round and equally reacting to light. EOMI. no scleral icterus. No conjunctival pallor. Normocephalic, atraumatic. No pharyngeal erythema. No thyromegaly. CARDIOVASCULAR: S1 and S2 muffled PULMONARY: diminished breath sounds bilaterally with some faint wheezing, coarse rhonchi noted. ABDOMEN: soft. Nontender on exam. obese. non-distended, normoactive bowel sounds. No palpable organomegaly. MUSCULOSKELETAL: No joint swelling or deformity. EXTREMITIES: No cyanosis, clubbing, or pedal edema. NEUROLOGICAL: Gross neurological examination did not reveal any focal deficits. Diffuse weakness SKIN: No rashes. Assessment: Shortness of breath, multifactorial, possible chronic obstructive pulmonary disease as well as CHF acute exacerbation Concerns of possible underlying pneumonia with multiple previous hospitalizations with sputum cultures being positive for MRSA as well as Pseudomonas aeruginosa Acute on chronic hypoxic respiratory failure secondary to COPD History of congestive heart failure with preserved EF Elevated WBC History of asthma History of GERD Degenerative joint disease History of severe anxiety Continued ongoing nicotine abuse, has not been smoking while at [facility] THC use History of pulmonary embolism History of bipolar disorder History of chronic pain and fibromyalgia GI prophylaxis DVT prophylaxis Full code Plan: Recommend to continue with current medications and management with cardiology and pulmonary following. Cardiology has evaluated the patient with history of CHF with preserved EF and feels shortness of breath is more related to COPD as well as underlying pneumonia and congestive heart failure is somewhat controlled. Cardiology recommending outpatient follow-up and continuing current regimen Patient will be continued on Accu-Cheks AC and at bedtime Awaiting PT/OT therapy notes as patient will be returning to [facility] on discharge for continued strength and mobility. Patient will also require ins urance authorization which will be submitted after therapy notes Encouraged increased activity as tolerated and sitting up in the chair more frequently Continue with BiPAP at night with current settings per pulmonary Awaiting sputum culture as patient has significant history of Pseudomonas along with MRSA and was recently hospitalized and discharged maintained on antibiotics. Patient being started empirically on antibiotics per pulmonary and awaiting cultures. Due to multiple complex medical issues, overall prognosis is extremely guarded The impression and plan of care has been dictated by Audrey Curtis, nurse practitioner as directed. Dr. Isaias MD I have performed a history and examination and MDM of this patient, discussed the same with the dictator, and agree with the dictator's assessment and plan as written ,documented as a scribe. Based on total visit time, I have performed more than 50% of the visit. Any additional findings or plans will be noted. Objective - Vital Signs Vital signs: Vital Signs Temp 97.8 F 02/10/25 04:00 Pulse 69 02/10/25 04:00 Resp 18 02/10/25 04:00 BP 145/78 02/10/25 04:00 Pulse Ox 96 02/10/25 04:00 FiO2 40 02/08/25 19:20 Intake & Output 02/09/25 02/09/25 02/10/25 06:59 18:59 06:59 Intake Total 240 240 10 Output Total 350 1300 400 Balance -110 -1060 -390 Weight 82.4 kg 83 kg Intake: IV 10 Invasive Line 1 10 Oral 240 240 0 Output: Urine 350 1300 400 Other: Voiding Method External Catheter External Catheter External Catheter # Voids 3 2 - Labs CBC & Chem 7: 02/08/25 10:08 02/08/25 10:08 Labs: Abnormal Lab Results - Last 24 Hours (Table) 02/09/25 02/09/25 02/09/25 Range/Units 11:16 16:13 20:13 POC Glucose (mg/dL) 120 H 226 H 308 H (70-110) mg/dL Microbiology - Last 24 Hours (Table) 02/08/25 12:53 Blood Culture - Preliminary Blood 02/08/25 18:42 Gram Stain - Preliminary Sputum
[2025-02-10 07:25] LABS: Basophils # (A) 0.05 10*3/uL (0.00-0.10); Basophils % (A) 0.3 %; Eosinophils # (A) 0.23 10*3/uL (0.04-0.35); Eosinophils % (A) 1.5 %; HCT 31.1 % (37.2-46.3); HGB 9.1 g/dL (12.0-15.0); Lymphocytes # (A) 2.28 10*3/uL (0.90-5.00); Lymphocytes % (A) 14.6 %; MCH 29.7 pg (27.0-32.0); MCHC 29.3 g/dL (32.0-37.0); MCV 101.6 fL (80.0-97.0); Monocytes # (A) 1.50 10*3/uL (0.20-1.00); Monocytes % (A) 9.6 %; Neutrophils # (A) 11.43 10*3/uL (1.80-7.70); Neutrophils % (A) 73.0 %; Platelet Count 309 10*3/uL (140-440); RBC 3.06 10*6/uL (4.10-5.20); RDW 14.7 % (11.5-14.5); WBC 15.65 10*3/uL (4.50-10.00)
[2025-02-10 07:32] LABS: African American GFR (CKD) >90 (>60 ml/min/1.73 sqM); Blood Urea Nitrogen 16 mg/dL (7-17); Calcium 9.1 mg/dL (8.4-10.2); Chloride 88 mmol/L (98-107); Glucose 96 mg/dL (74-99); Magnesium 1.7 mg/dL (1.6-2.3); Non-African American GFR(CKD) >90 (>60 ml/min/1.73 sqM); Potassium 4.2 mmol/L (3.5-5.1); Sodium 132 mmol/L (137-145)
[2025-02-10 07:42] LABS: Anion Gap 2 mmol/L
[2025-02-10 07:46] LABS: Carbon Dioxide 42 mmol/L (22-30)
[2025-02-10] MEDS: FUROSEMIDE 40 MG TAB PO SCH (08:16)
[2025-02-10 11:40] LABS: Glucose,Whole Blood 162 mg/dL (70-110)
--- NOTE | 2025-02-10 12:06 | P.PN ---
Subjective Progress Note Date: 02/10/25 Principal diagnosis: Acute on chronic hypoxic respiratory failure, multifactorial This is a 69-year-old female patient appears older than stated age with multiple admissions to the hospital mostly related to COPD. She was recently discharged to [facility] on the [facility] however she was brought back here yesterday after being found to have O2 saturations in the mid 70s. She is normally oxygen dependent at 4 to 5 L. She is normally BiPAP dependent at night. Chest x-ray shows very low lung volumes findings suggestive of interstitial pulmonary edema with trace pleural effusions. Sputum culture from yesterday is pending. She did have sputum positive MRSA January 25, 2025 and sputum positive Pseudomonas aeruginosa in December 25, 2024. Legionella screen is negative. White count 22.7. Hemoglobin 9.0. Platelets 279. Sodium 132. Potassium 4.3. Bicarb 47. BUN 4018. Creatinine 0.46. Glucose 191. Troponin negative x 1. proBNP 316. She is seen today in consultation on the selective care unit. She is sitting up having breakfast. Awake and alert in no acute distress. Feeling a bit better today compared to yesterday. Maintaining O2 saturation in the low 90s on 5 L high flow nasal cannula. She is afebrile. Hemodynamically stable. Seen today on 02/10/2025, patient continues to have intermittent cough, cough is productive with yellow phlegm, no fever no chills no hemoptysis, remains on oxygen, 5 L nasal cannula with O2 sat of 92%. Sputum Gram stain is showing m ostly gram-negative bacilli, final culture is pending in the meantime patient is on broad-spectrum antibiotics, previously she had pseudomonal infections and she also had history of MRSA infections. Addressing potentially both for now. WBC is 15.6 hemoglobin 12.1 electrolytes are normal except for bicarb of 42 which is expected considering her chronic hypercapnic respiratory failure. Chest x-ray on this admission showed patchy bibasilar opacities consistent with pneumonia and she had small pleural effusions. Objective - Vital Signs Vital signs: Vital Signs Temp 97.9 F 02/10/25 07:50 Pulse 74 02/10/25 09:13 Resp 20 02/10/25 07:50 BP 137/69 02/10/25 07:50 Pulse Ox 92 L 02/10/25 08:04 FiO2 40 02/08/25 19:20 Intake & Output 02/09/25 02/10/25 02/10/25 18:59 06:59 18:59 Intake Total 240 10 128 Output Total 1300 400 Balance -1060 -390 128 Weight 83 kg Intake: IV 10 10 Invasive Line 1 10 10 Oral 240 0 118 Output: Urine 1300 400 Other: Voiding Method External Catheter External Catheter External Catheter # Voids 3 2 4 - Exam GENERAL EXAM: Alert, 69-year-old female, appears older than stated age, on 5 L high flow nasal cannula HEAD: Normocephalic. EYES: Normal reaction of pupils, equal size. NOSE: Clear with pink turbinates. THROAT: No erythema or exudates. NECK: No masses, no JVD. CHEST: No chest wall deformity. LUNGS: Equal air entry with few scattered rhonchi, crackles in the posterior ba ses. CVS: S1 and S2 normal with no audible murmur, regular rhythm. ABDOMEN: No hepatosplenomegaly, normal bowel sounds, no guarding or rigidity. SPINE: No scoliosis or deformity SKIN: No rashes CENTRAL NERVOUS SYSTEM: Alert and oriented x 3 no focal deficit EXTREMITIES: Trace bipedal edema, good pulses - Labs CBC & Chem 7: 02/10/25 06:33 02/10/25 06:33 Labs: Abnormal Lab Results - Last 24 Hours (Table) 02/09/25 02/09/25 02/10/25 Range/Units 16:13 20:13 06:33 WBC (4.50-10.00) 10*3/uL RBC (4.10-5.20) 10*6/uL Hgb (12.0-15.0) g/dL Hct (37.2-46.3) % MCV (80.0-97.0) fL MCHC (32.0-37.0) g/dL MPV (9.5-12.2) fL Immature Gran # (0.00-0.04) 10*3/uL Neutrophils # (1.80-7.70) 10*3/uL Monocytes # (0.20-1.00) 10*3/uL Sodium 132 L (137-145) mmol/L Chloride 88 L (98-107) mmol/L Carbon Dioxide 42 H* (22-30) mmol/L Creatinine 0.51 L (0.52-1.04) mg/dL POC Glucose (mg/dL) 226 H 308 H (70-110) mg/dL 02/10/25 02/10/25 Range/Units 06:33 11:39 WBC 15.65 H (4.50-10.00) 10*3/uL RBC 3.06 L (4.10-5.20) 10*6/uL Hgb 9.1 L (12.0-15.0) g/dL Hct 31.1 L (37.2-46.3) % MCV 101.6 H (80.0-97.0) fL MCHC 29.3 L (32.0-37.0) g/dL MPV 8.7 L (9.5-12.2) fL Immature Gran # 0.16 H (0.00-0.04) 10*3/uL Neutrophils # 11.43 H (1.80-7.70) 10*3/uL Monocytes # 1.50 H (0.20-1.00) 10*3/uL Sodium (137-145) mmol/L Chloride (98-107) mmol/L Carbon Dioxide (22-30) mmol/L Creatinine (0.52-1.04) mg/dL POC Glucose (mg/dL) 162 H (70-110) mg/dL Microbiology - Last 24 Hours (Table) 02/08/25 12:53 Blood Culture - Preliminary Blood 02/08/25 18:42 Gram Stain - Preliminary Sputum Assessment and Plan Assessment: Impression: Acute on chronic hypoxic and hypercapnic respiratory failure secondary to an acute exacerbation of chronic obstructive pulmonary disease and possible underlying pneumonia. Recent sputum culture positive for MRSA January 25, 2025 and a previous sputum culture positive for Pseudomonas aeruginosa on December 22, 2024, empirically the patient is now on cefepime for her Pseudomonas aeruginosa possibility and on vancomycin for MRSA possibility. Multiple admissions for the same most recently discharged to [facility] on 01/30/2025 History of hypoglycemia with altered mental status Left hemidiaphragm elevation Chronic obstructive pulmonary disease with an FEV1 value 64% of predicted Chronic hypoxemic respiratory failure maintained on oxygen 4 to 5 L Chronic tobacco dependence Hypothyroidism Hypertension History of mediastinal lymphadenopathy History of gastric bypass surgery History of bipolar disorder History of fibromyalgia with chronic pain syndrome History of anxiety Poor overall functional performance based on the above-mentioned multiple comorbidities Recommendation: Continue antibiotics including cefepime and vancomycin for now Continue DuoNeb Continue prednisone Continue Symbicort Continue Mucinex Resume home meds DVT prophylaxis Counseled regarding smoke cessation continue NicoDerm patch for now Eventually plan to transfer the patient back to [facility] when ready for discharge. Will continue to follow Time with Patient: Less than 30
--- NOTE | 2025-02-10 13:15 | P.PN ---
Subjective HISTORY OF PRESENT ILLNESS: This is a 69-year-old female with a past medical history significant for congestive heart failure, COPD, pneumonia, lung mass, hypertension, and obesity. Patient follows in the office with Dr. Last. We have been asked to see the patient in consultation for congestive heart failure. Patient examined at the bedside. Patients spouse is at the bedside and providing majority of HPI. Patient states she has not been feeling well for the past couple months and has been in and out of the hospital. She was recently discharged from the hospital and sent to [facility]. She presented back to the hospital due to low oxygen saturations. She denies having any chest pain or pressure. She does report a cough with patel sputum production. She denies any worsening lower extremity edema. She is currently on 5 L nasal cannula. She is a former smoker and stopping smoking about 2-3 months ago. DIAGNOSTICS: - EKG reveals sinus mechanism with LVH. No signs of acute ischemia. - Chest xray mild to moderate cardiomegaly with ongoing interstitial pulmonary edema, slightly improved from prior. Patchy bibasilar opacities and trace bilateral pleural effusions persist. - Laboratory data: WBC 22.76. Hemoglobin 9.0. Platelet count 279. Sodium 132. Potassium 4.3. BUN 18. Creatinine 0.46. Troponin negative x 1. proBNP 316. - Current home cardiac medications include amlodipine 5 mg twice a day, metoprolol tartrate 25 mg twice a day, Lasix 40 mg daily, aspirin 81 mg daily. - Most recent echocardiogram obtained in 03/2024 revealing ejection fraction 55 to 60%, no obvious regional wall motion abnormalities, trace MR -Patient underwent Lexiscan stress test in January 2023 revealing fixed inferior perfusion defect consistent with diaphragmatic attenuation artifact. No other myocardial perfusion defects to suggest ischemia. Ejection fraction 60%. - Cardiac catheterization history: Unknown 02/10/2025 Patient examined this morning at the bedside. Patient currently denies chest pain or pressure. She denies shortness of breath. She remains on 5 L nasal cannula. 2D echo remains pending. Patient is upset this morning as she states her brother is not doing well physically. PHYSICAL EXAM: VITAL SIGNS: Reviewed. GENERAL: Well-developed in no acute distress. HEENT: Head is normocephalic. Pupils are equal, round. Sclerae anicteric. Mucous membranes of the mouth are moist. Neck supple. No JVD or thyromegaly LUNGS: Respirations even and unlabored. Lungs with wheezing bilateral HEART: Regular rate and rhythm. S1 and S2 heard. ABDOMEN: Soft. Nondistended. Nontender. EXTREMITIES: Normal range of motion. No clubbing or cyanosis. Peripheral pulses intact. Minimal lower extremity edema NEUROLOGIC: Awake and alert. Oriented x 3. ASSESSMENT: Leukocytosis Acute hypoxic respiratory failure Chronic heart failure with preserved EF History of COPD History of pneumonia History of lung mass Hypertension Obesity: BMI 35.5 PLAN: Patients symptoms appear to be primarily pulmonary in origin and not cardiac Patient does not require IV diuresis at this time. Continue oral Lasix 40 mg daily Continue additional cardiac medications including amlodipine, aspirin, metoprolol 2D echo has been ordered. Await results. Wean oxygen as tolerated Further recommendations pending patient course Nurse practitioner note has been reviewed by physician. Signing provider agrees with the documented findings, assessment, and plan of care documented by [employer] INSTRUCTOR TRAINER as a scribe. Objective - Vital Signs Vital signs: Vital Signs Temp 98.3 F 02/10/25 12:00 Pulse 80 02/10/25 12:00 Resp 20 02/10/25 12:00 BP 117/70 02/10/25 12:00 Pulse Ox 91 L 02/10/25 12:00 FiO2 40 02/08/25 19:20 Intake & Output 02/09/25 02/10/25 02/10/25 18:59 06:59 18:59 Intake Total 240 10 128 Output Total 1300 400 Balance -1060 -390 128 Weight 83 kg Intake: IV 10 10 Invasive Line 1 10 10 Oral 240 0 118 Output: Urine 1300 400 Other: Voiding Method External Catheter External Catheter External Catheter # Voids 3 2 4 - Labs CBC & Chem 7: 02/10/25 06:33 02/10/25 06:33 Labs: Abnormal Lab Results - Last 24 Hours (Table) 02/09/25 02/09/25 02/10/25 Range/Units 16:13 20:13 06:33 WBC (4.50-10.00) 10*3/uL RBC (4.10-5.20) 10*6/uL Hgb (12.0-15.0) g/dL Hct (37.2-46.3) % MCV (80.0-97.0) fL MCHC (32.0-37.0) g/dL MPV (9.5-12.2) fL Immature Gran # (0.00-0.04) 10*3/uL Neutrophils # (1.80-7.70) 10*3/uL Monocytes # (0.20-1.00) 10*3/uL Sodium 132 L (137-145) mmol/L Chloride 88 L (98-107) mmol/L Carbon Dioxide 42 H* (22-30) mmol/L Creatinine 0.51 L (0.52-1.04) mg/dL POC Glucose (mg/dL) 226 H 308 H (70-110) mg/dL 02/10/25 02/10/25 Range/Units 06:33 11:39 WBC 15.65 H (4.50-10.00) 10*3/uL RBC 3.06 L (4.10-5.20) 10*6/uL Hgb 9.1 L (12.0-15.0) g/dL Hct 31.1 L (37.2-46.3) % MCV 101.6 H (80.0-97.0) fL MCHC 29.3 L (32.0-37.0) g/dL MPV 8.7 L (9.5-12.2) fL Immature Gran # 0.16 H (0.00-0.04) 10*3/uL Neutrophils # 11.43 H (1.80-7.70) 10*3/uL Monocytes # 1.50 H (0.20-1.00) 10*3/uL Sodium (137-145) mmol/L Chloride (98-107) mmol/L Carbon Dioxide (22-30) mmol/L Creatinine (0.52-1.04) mg/dL POC Glucose (mg/dL) 162 H (70-110) mg/dL Microbiology - Last 24 Hours (Table) 02/08/25 12:53 Blood Culture - Preliminary Blood 02/08/25 18:42 Gram Stain - Preliminary Sputum
[2025-02-10 15:30] LABS: Glucose,Whole Blood 146 mg/dL (70-110)
[2025-02-10 16:49] LABS: Glucose,Whole Blood 246 mg/dL (70-110)
[2025-02-10 19:53] LABS: Glucose,Whole Blood 153 mg/dL (70-110)
[2025-02-11 02:19] LABS: Glucose,Whole Blood 87 mg/dL (70-110)
--- NOTE | 2025-02-11 03:02 | PN ---
PROGRESS NOTE DATE OF SERVICE: 02/10/2025 SUBJECTIVE: This is a 69-year-old woman who was admitted with shortness of breath, combination of COPD and CHF, is improving significantly. No chest pain. No palpitation. OBJECTIVE: VITAL SIGNS: On exam, pulse 90, blood pressure 120/72, respirations 21. CHEST: Bilateral scattered rhonchi. ABDOMEN: Soft. LABS: Reviewed. ASSESSMENT: 1. Shortness of breath WITH multifactorial COPD and CHF acute exacerbation. 2. Possible underlying pneumonia with THE sputum culture positive for MRSA as well as Pseudomonas history. 3. Elevated WBC. 4. History of asthma. 5. History of GERD. RECOMMENDATIONS: Recommend to continue with current management and symptomatic treatment. Sputum culture showed Hafnia alvei and Proteus mirabilis. Infectious Disease being consulted. Guarded prognosis. Further recommendations to follow. MMODL / IJN: [id number] /
[2025-02-11 06:34] LABS: Glucose,Whole Blood 91 mg/dL (70-110)
--- NOTE | 2025-02-11 07:41 | CT ---
EXAMINATION TYPE: CT brain wo con DATE OF EXAM: 02/11/2025 COMPARISON: 01/24/2025 CLINICAL INDICATION: Female, 69 years old with history of Unequal pupils and headache; PHH, Unequal p upils and headache TECHNIQUE: CT scan of the head is performed without contrast. CT DLP: 1199.[address] CTDI: mGy Automated exposure control for dose reduction was used. FINDINGS: There is no acute intracranial hemorrhage or midline shift identified. There is diffuse v entricular and sulcal prominence consistent with diffuse age-related cerebral atrophy. There is low- attenuation in the periventricular white matter consistent with chronic small vessel ischemic change. The globes are intact and the visualized sinuses are clear. IMPRESSION: No acute intracranial hemorrhage or midline shift. There is diffuse age-related cerebra l atrophy and chronic small vessel ischemic change noted. [facility], , 02/11/2025 7:35 AM
[2025-02-11] MEDS: VANCOMYCIN TROUGH DUE 1 EACH MISC MISCELLANE ONE (08:21)
[2025-02-11 08:22] LABS: Basophils # (A) 0.09 10*3/uL (0.00-0.10); Basophils % (A) 0.5 %; Eosinophils # (A) 0.25 10*3/uL (0.04-0.35); Eosinophils % (A) 1.4 %; HCT 33.8 % (37.2-46.3); HGB 10.1 g/dL (12.0-15.0); Lymphocytes # (A) 1.63 10*3/uL (0.90-5.00); Lymphocytes % (A) 9.4 %; MCH 30.5 pg (27.0-32.0); MCHC 29.9 g/dL (32.0-37.0); MCV 102.1 fL (80.0-97.0); Monocytes # (A) 1.97 10*3/uL (0.20-1.00); Monocytes % (A) 11.3 %; Neutrophils # (A) 13.29 10*3/uL (1.80-7.70); Neutrophils % (A) 76.6 %; Platelet Count 311 10*3/uL (140-440); RBC 3.31 10*6/uL (4.10-5.20); RDW 14.6 % (11.5-14.5); WBC 17.37 10*3/uL (4.50-10.00)
[2025-02-11 08:38] LABS: African American GFR (CKD) >90 (>60 ml/min/1.73 sqM); Blood Urea Nitrogen 17 mg/dL (7-17); Calcium 9.8 mg/dL (8.4-10.2); Chloride 88 mmol/L (98-107); Glucose 88 mg/dL (74-99); Non-African American GFR(CKD) >90 (>60 ml/min/1.73 sqM); Potassium 4.2 mmol/L (3.5-5.1); Sodium 132 mmol/L (137-145)
[2025-02-11 08:45] LABS: Anion Gap 5 mmol/L; Carbon Dioxide 39 mmol/L (22-30)
--- NOTE | 2025-02-11 09:58 | P.CONS ---
History of Present Illness - Reason for Consult Consult date: 02/10/25 Recurrent pneumonia recent Pseudomonas/MRSA Requesting physician: Shanice Mcmillan - Chief Complaint Shortness of breath and hypoxemia x 2 days - History of Present Illness Patient is a 69-year-old female with a past medical history significant for COPD history of recurrent pneumonia recently did have MRSA pneumonia for the patient has been on IV vancomycin at the care home patient has been brought into the hospital from a local care home 2 days ago after th e patient was noted to be hypoxic with O2 sats in the 70% patient received some breathing treatment and subsequently was sent to the hospital order for evaluation on presentation to the hospital patient was afebrile and no fever have been recorded Subsequently patient was nontachycardic or hypotensive not requiring any pressor support patient did have a white count of 22.76 on admission that is down 15.65 creatinine has been normal liver enzymes are normal urine for Legionella antigen is negative sputum cultures obtained which are currently pending patient did have a chest x-ray with low lung volumes findings consistent for CHF interstitial pulmonary edema reviewed chest x-ray mild to moderate cardiomegaly with ongoing interstitial pulmonary edema infectious he was consulted patient with recurrent pneumonia with recent culture positive for MRSA and Pseudomonas Review of Systems Positive point and negatives has been mentioned in the HPI, complete review of systems was performed and all other systems are negative Past Medical History Past Medical History: Asthma, Heart Failure, COPD, Diabetes Mellitus, Fibromyalgia, GERD/Reflux, Hypertension, Osteoarthritis (OA), Pneumonia, Skin Disorder, Thyroid Disorder Additional Past Medical History / Comment(s): Spinal Stenosis, Cervical disc disease/stenosis, scoliosis, hx of L hemidiaphragmatic elevation-possibly genetic, recently bronchitis and past bronchitis, electrolyte problem/kidney function being affected, hx of pulmonary emboli, past bilateral lower extremity cellulitis, edema lower extremities, IBS, hemorrhoids, benign colon polyps, sinus problems, UTIs, bacteremia/sepsis, cardiac murmur, past L ankle and L wrist fractures. History of Any Multi-Drug Resistant Organisms: MRSA, Other MDRO Year Discovered:: 01/25/25-MRSA; 12/19/24-Other MDRO MDRO Source:: MRSA-sputum, knee; Other MDRO-sputum Past Surgical History: Bariatric Surgery, Section, Cholecystectomy, Hysterectomy, Tonsillectomy Additional Past Surgical History / Comment(s): EGD, colonoscopies, gastric bypass, surgery for deviated septum, left cataract removal Past Anesthesia/Blood Transfusion Reactions: Previous Problems w/ Anesthesia Additional Past Anesthesia/Blood Transfusion Reaction / Comm: itching after hysterectomy, some kind of breathing problem after gastric bypass-not sure what happened Past Psychological History: Anxiety, Bipolar, Depression, Panic Disorder Smoking Status: Former smoker Past Alcohol Use History: None Reported Additional Past Alcohol Use History / Comment(s): quit smoking three months ago Past Drug Use History: None Reported - Past Family History Mother Family Medical History: Congestive Heart Failure (CHF), Hypertension Father History Unknown: Yes Additional Family Medical History / Comment(s): Father at the age of 45 yrs d/t having had rheumatic fever as a child and heart valve disease. Medications and Allergies Home Medications Medication Instructions Recorded Confirmed Type Montelukast [Singulair] 10 mg PO HS 12/17/13 02/08/25 History Levothyroxine Sodium [Synthroid] 150 mcg PO DAILY@0600 03/29/20 02/08/25 History Famotidine [Pepcid] 20 mg PO BID 09/03/21 02/08/25 History Tamsulosin [Flomax] 0.4 mg PO DAILY 10/26/21 02/08/25 History Ipratropium-Albuterol Nebulize 3 ml INHALATION RT-TID@06,12,18 11/13/22 02/08/25 History [Duoneb 0.5 mg-3 mg/3 ml Soln] lamoTRIgine [LaMICtal] 100 mg PO BID 03/18/24 02/08/25 History Metoprolol Tartrate [Lopressor] 25 mg PO BID 05/16/24 02/08/25 History Divalproex ER [Depakote ER] 250 mg PO BID #60 tab 05/26/24 02/08/25 Rx busPIRone HCL [Buspar] 30 mg PO BID 06/09/24 02/08/25 History Fluticasone/Umeclidin/Vilanter 1 puff INHALATION RT-DAILY 10/17/24 02/08/25 History [Trelegy Ellipta 200-62.5-25] OLANZapine 15 mg PO HS 10/17/24 02/08/25 History Venlafaxine HCl [Effexor XR] 150 mg PO DAILY 10/17/24 02/08/25 History amLODIPine [Norvasc] 5 mg PO BID 30 Days #60 tab 10/21/24 02/08/25 Rx Nitroglycerin Sl Tabs [Nitrostat] 0.4 mg SUBLINGUAL Q5M PRN #20 tab 11/30/24 Rx guaiFENesin [Mucinex] 600 mg PO Q8H PRN 12/24/24 02/08/25 History Ipratropium-Albuterol Nebulize 3 ml INHALATION RT-Q4H PRN each 12/26/24 02/08/25 Rx [Duoneb 0.5 mg-3 mg/3 ml Soln] Docusate [Colace] 100 mg PO DAILY cap 01/08/25 02/08/25 Rx Acetaminophen Tab [Tylenol] 650 mg PO Q4H PRN 01/24/25 02/08/25 History Aspirin 81 mg PO DAILY 01/24/25 02/08/25 History Budesonide [Pulmicort] 1 mg INHALATION RT-BID 01/24/25 02/08/25 History Cholecalciferol [Vitamin D3 (25 50 mcg PO DAILY 01/24/25 02/08/25 History Mcg = 1000 Iu)] Cyanocobalamin [Vitamin B-12] 500 mcg PO DAILY 01/24/25 02/08/25 History Nicotine 7Mg/24Hr Patch [Habitrol] 1 patch TRANSDERM DAILY 01/24/25 02/08/25 History predniSONE 10 mg PO DAILY 01/24/25 02/08/25 History ALPRAZolam [Xanax] 0.5 mg PO TID PRN #9 tab 01/30/25 02/08/25 Rx Buprenorphine [Butrans 7.5 MCG/HR] 1 patch TRANSDERM FR #1 patch 01/30/25 02/08/25 Rx HYDROcodone/APAP 5-325MG [Denair 1 tab PO Q8H PRN #6 tab 01/30/25 02/08/25 Rx 5-325] 0.9 % Sodium Chloride [Sodium 10 ml IV Q12H 02/08/25 02/08/25 History Chloride Flush] Arformoterol Tartrate [Brovana] 15 mcg INHALATION RT-BID 02/08/25 02/08/25 History Ferrous Sulfate [Feosol] 325 mg PO DAILY 02/08/25 02/08/25 History Furosemide [Lasix] 40 mg PO DAILY 02/08/25 02/08/25 History HYDROcodone/APAP 7.5-325MG [Denair 1 tab PO Q8H PRN 02/08/25 02/08/25 History 7.5-325] INSULIN LISPRO (HumaLOG) [HumaLOG] See Protocol SQ AC-TID@08,12,02/08/25 02/08/25 History Pregabalin [Lyrica] 75 mg PO BID 02/08/25 02/08/25 History tiZANidine HCL [Zanaflex] 2 mg PO HS 02/08/25 02/08/25 History Allergies Allergy/AdvReac Type Severity Reaction Status Date / Time codeine Allergy Unknown Verified 02/08/25 11:46 Childhood Penicillins Allergy Rash/Hives Verified 02/08/25 11:46 Sulfa (Sulfonamide Allergy Rash/Hives Verified 02/08/25 11:46 Antibiotics) Physical Exam Vitals: Vital Signs Temp Pulse Pulse Resp BP Pulse Ox 02/10/25 12:00 98.3 F 80 20 117/70 91 L 02/10/25 09:13 74 02/10/25 09:00 70 02/10/25 08:04 92 L 02/10/25 08:00 78 L 02/10/25 07:50 97.9 F 79 20 137/69 91 L 02/10/25 04:00 97.8 F 69 18 145/78 96 02/10/25 00:00 97.6 F 75 20 135/72 93 L 02/09/25 21:08 75 16 02/09/25 20:56 82 16 02/09/25 19:51 98.2 F 79 20 124/67 90 L 02/09/25 16:35 98.7 F 83 18 144/65 90 L 02/09/25 15:06 84 02/09/25 14:55 80 Intake and Output 02/09/25 02/10/25 02/10/25 22:59 06:59 14:59 Intake Total 250 128 Output Total 450 400 Balance -200 -400 128 Intake: IV 10 10 Invasive Line 1 10 10 Oral 240 118 Output: Urine 450 400 Other: Voiding Method External Catheter External Catheter External Catheter # Voids 2 4 Weight 83 kg GENERAL DESCRIPTION: Elderly female lying in bed, no distress. No tachypnea or accessory muscle of respiration use. HEENT: Shows Pallor , no scleral icterus. Oral mucous membrane is dry. NECK: Trachea central, no thyromegaly. LUNGS: Unlabored breathing. Presumed base HEART: S1, S2, regular rate and rhythm. No loud murmur ABDOMEN: Soft, no tenderness , guarding or rigidity, no organomegaly EXTREMITIES: No edema of feet. SKIN: No rash, no masses palpable. NEUROLOGICAL: The patient is awake, mood and affect normal. Results CBC & Chem 7: 02/11/25 08:04 02/11/25 08:04 Labs: Abnormal Lab Results - Last 24 Hours (Table) 02/09/25 02/09/25 02/10/25 Range/Units 16:13 20:13 06:33 WBC (4.50-10.00) 10*3/uL RBC (4.10-5.20) 10*6/uL Hgb (12.0-15.0) g/dL Hct (37.2-46.3) % MCV (80.0-97.0) fL MCHC (32.0-37.0) g/dL MPV (9.5-12.2) fL Immature Gran # (0.00-0.04) 10*3/uL Neutrophils # (1.80-7.70) 10*3/uL Monocytes # (0.20-1.00) 10*3/uL Sodium 132 L (137-145) mmol/L Chloride 88 L (98-107) mmol/L Carbon Dioxide 42 H* (22-30) mmol/L Creatinine 0.51 L (0.52-1.04) mg/dL POC Glucose (mg/dL) 226 H 308 H (70-110) mg/dL 02/10/25 02/10/25 Range/Units 06:33 11:39 WBC 15.65 H (4.50-10.00) 10*3/uL RBC 3.06 L (4.10-5.20) 10*6/uL Hgb 9.1 L (12.0-15.0) g/dL Hct 31.1 L (37.2-46.3) % MCV 101.6 H (80.0-97.0) fL MCHC 29.3 L (32.0-37.0) g/dL MPV 8.7 L (9.5-12.2) fL Immature Gran # 0.16 H (0.00-0.04) 10*3/uL Neutrophils # 11.43 H (1.80-7.70) 10*3/uL Monocytes # 1.50 H (0.20-1.00) 10*3/uL Sodium (137-145) mmol/L Chloride (98-107) mmol/L Carbon Dioxide (22-30) mmol/L Creatinine (0.52-1.04) mg/dL POC Glucose (mg/dL) 162 H (70-110) mg/dL Microbiology - Last 24 Hours (Table) 02/08/25 12:53 Blood Culture - Preliminary Blood 02/08/25 18:42 Gram Stain - Preliminary Sputum Assessment and Plan (1) Leukocytosis Current Visit: Yes Status: Acute Code(s): D72.829 - ELEVATED WHITE BLOOD CELL COUNT, UNSPECIFIED SNOMED Code(s): 754440233 (2) Allergy to multiple antibiotics Current Visit: No Status: Acute Code(s): Z88.1 - ALLERGY STATUS TO OTHER ANTIBIOTIC AGENTS SNOMED Code(s): 345727127 (3) Pneumonia Current Visit: No Status: Acute Code(s): J18.9 - PNEUMONIA, UNSPECIFIED ORGANISM SNOMED Code(s): 583619256 Plan: 1patient presented to hospital with hypoxemia increasing shortness of breath w hich is likely multifactorial with question of possible fluid overload possibly secondary to pneumonia in this patient who did have a history of recurrent pneumonia and recently completed course of for drug-resistant Pseudomonas followed by MRSA 2-we will check inflammatory markers and wait for the sputum culture to be finalized 3-for now continue with the vancomycin and cefepime adjusting antibiotic further on the basis of these recent culture We will follow on clinical condition and cultures to further adjust medication if needed Thank you for this consultation we will follow the patient along with you Dictation was produced using [employer] dictation software. please excuse any grammatical, word or spelling errors.
--- NOTE | 2025-02-11 10:46 | P.CNNES ---
History of Present Illness Consult date: 02/11/25 Requesting physician: Audrey Curtis Reason for Consult: Unequal pupils, confusion and headache History of Present Illness: 69-year-old woman who presents the emergency department because of hypoxia. The history is obtained from medical record as well as the patient nurse since the patient is not a great historian. It seems that the patient presents because of hypoxia in which her oxygen saturation at [facility] was in the mid 70s. She is usually on 4 to 5 L of oxygen as well as is on BiPAP at nighttime. During this hospital visit she was getting oxygen therapy as well as nebulizer as well as is on prednisone and it seems that overnight according to the nurse she had unequal pupil and is confused. Today the unequal pupil has improved. Patient denies of any focal weakness any speech difficulty any numbness that is new. Some of the workup during this hospital visit consisted of: Initial, dioxide level is 47 and is slightly trending down. CT of the head is reported as no acute intracranial hemorrhage or midline shift. There is diffuse age-related cerebral atrophy and chronic small vessel ischemic change noted. I personally reviewed the CT and I agree there is no acute or subacute stroke. Review of Systems As per HPI. Past Medical History Past Medical History: Asthma, Heart Failure, COPD, Diabetes Mellitus, Fibromyalgia, GERD/Reflux, Hypertension, Osteoarthritis (OA), Pneumonia, Skin Disorder, Thyroid Disorder Additional Past Medical History / Comment(s): Spinal Stenosis, Cervical disc disease/stenosis, scoliosis, hx of L hemidiaphragmatic elevation-possibly genetic, recently bronchitis and past bronchitis, electrolyte problem/kidney function being affected, hx of pulmonary emboli, past bilateral lower extremity cellulitis, edema lower extremities, IBS, hemorrhoids, benign colon polyps, si nus problems, UTIs, bacteremia/sepsis, cardiac murmur, past L ankle and L wrist fractures. History of Any Multi-Drug Resistant Organisms: MRSA, Other MDRO Date of last positivie culture/infection: 01/25/25-MRSA; 12/19/24-Other MDRO MDRO Source:: MRSA-sputum, knee; Other MDRO-sputum Past Surgical History: Bariatric Surgery, Section, Cholecystectomy, Hysterectomy, Tonsillectomy Additional Past Surgical History / Comment(s): EGD, colonoscopies, gastric bypass, surgery for deviated septum, left cataract removal Past Anesthesia/Blood Transfusion Reactions: Previous Problems w/ Anesthesia Additional Past Anesthesia/Blood Transfusion Reaction / Comment(s): itching after hysterectomy, some kind of breathing problem after gastric bypass-not sure what happened Past Psychological History: Anxiety, Bipolar, Depression, Panic Disorder Smoking Status: Former smoker Past Alcohol Use History: None Reported Additional Past Alcohol Use History / Comment(s): quit smoking three months ago Past Drug Use History: None Reported - Past Family History Mother Family Medical History: Congestive Heart Failure (CHF), Hypertension Father History Unknown: Yes Additional Family Medical History / Comment(s): Father at the age of 45 yrs d/t having had rheumatic fever as a child and heart valve disease. Medications and Allergies Home Medications Medication Instructions Recorded Confirmed Type Montelukast [Singulair] 10 mg PO HS 12/17/13 02/08/25 History Levothyroxine Sodium [Synthroid] 150 mcg PO DAILY@0600 03/29/20 02/08/25 History Famotidine [Pepcid] 20 mg PO BID 09/03/21 02/08/25 History Tamsulosin [Flomax] 0.4 mg PO DAILY 10/26/21 02/08/25 History Ipratropium-Albuterol Nebulize 3 ml INHALATION RT-TID@06,12,18 11/13/22 02/08/25 History [Duoneb 0.5 mg-3 mg/3 ml Soln] lamoTRIgine [LaMICtal] 100 mg PO BID 03/18/24 02/08/25 History Metoprolol Tartrate [Lopressor] 25 mg PO BID 05/16/24 02/08/25 History Divalproex ER [Depakote ER] 250 mg PO BID #60 tab 05/26/24 02/08/25 Rx busPIRone HCL [Buspar] 30 mg PO BID 06/09/24 02/08/25 History Fluticasone/Umeclidin/Vilanter 1 puff INHALATION RT-DAILY 10/17/24 02/08/25 History [Trelegy Ellipta 200-62.5-25] OLANZapine 15 mg PO HS 10/17/24 02/08/25 History Venlafaxine HCl [Effexor XR] 150 mg PO DAILY 10/17/24 02/08/25 History amLODIPine [Norvasc] 5 mg PO BID 30 Days #60 tab 10/21/24 02/08/25 Rx Nitroglycerin Sl Tabs [Nitrostat] 0.4 mg SUBLINGUAL Q5M PRN #20 tab 11/30/24 02/08/25 Rx guaiFENesin [Mucinex] 600 mg PO Q8H PRN 12/24/24 02/08/25 History Ipratropium-Albuterol Nebulize 3 ml INHALATION RT-Q4H PRN each 12/26/24 02/08/25 Rx [Duoneb 0.5 mg-3 mg/3 ml Soln] Docusate [Colace] 100 mg PO DAILY cap 01/08/25 02/08/25 Rx Acetaminophen Tab [Tylenol] 650 mg PO Q4H PRN 01/24/25 02/08/25 History Aspirin 81 mg PO DAILY 01/24/25 02/08/25 History Budesonide [Pulmicort] 1 mg INHALATION RT-BID 01/24/25 02/08/25 History Cholecalciferol [Vitamin D3 (25 50 mcg PO DAILY 01/24/25 02/08/25 History Mcg = 1000 Iu)] Cyanocobalamin [Vitamin B-12] 500 mcg PO DAILY 01/24/25 02/08/25 History Nicotine 7Mg/24Hr Patch [Habitrol] 1 patch TRANSDERM DAILY 01/24/25 02/08/25 History predniSONE 10 mg PO DAILY 01/24/25 02/08/25 History ALPRAZolam [Xanax] 0.5 mg PO TID PRN #9 tab 01/30/25 02/08/25 Rx Buprenorphine [Butrans 7.5 MCG/HR] 1 patch TRANSDERM FR #1 patch 01/30/25 02/08/25 Rx HYDROcodone/APAP 5-325MG [[place] 1 tab PO Q8H PRN #6 tab 01/30/25 02/08/25 Rx 5-325] 0.9 % Sodium Chloride [Sodium 10 ml IV Q12H 02/08/25 02/08/25 History Chloride Flush] Arformoterol Tartrate [Brovana] 15 mcg INHALATION RT-BID 02/08/25 02/08/25 History Ferrous Sulfate [Feosol] 325 mg PO DAILY 02/08/25 02/08/25 History Furosemide [Lasix] 40 mg PO DAILY 02/08/25 02/08/25 History HYDROcodone/APAP 7.5-325MG [[place] 1 tab PO Q8H PRN 02/08/25 02/08/25 History 7.5-325] INSULIN LISPRO (HumaLOG) [HumaLOG] See Protocol SQ AC-TID@08,12,02/08/25 02/08/25 History Pregabalin [Lyrica] 75 mg PO BID 02/08/25 02/08/25 History tiZANidine HCL [Zanaflex] 2 mg PO HS 02/08/25 02/08/25 History Allergies Allergy/AdvReac Type Severity Reaction Status Date / Time codeine Allergy Unknown Verified 02/08/25 11:46 Childhood Penicillins Allergy Rash/Hives Verified 02/08/25 11:46 Sulfa (Sulfonamide Allergy Rash/Hives Verified 02/08/25 11:46 Antibiotics) Physical Examination - Vital Signs Vital Signs: Vital Signs Temp Pulse Pulse Resp BP Pulse Ox FiO2 02/11/25 08:28 79 02/11/25 08:16 94 L 02/11/25 08:15 87 02/11/25 07:49 98 F 84 22 147/72 98 02/11/25 04:45 40 02/11/25 03:13 73 12 128/73 90 L 40 02/11/25 01:45 18 91 L 02/11/25 01:30 75 18 127/75 87 L 02/10/25 23:41 97.6 F 79 20 149/76 94 L 02/10/25 21:29 89 02/10/25 21:17 87 40 02/10/25 20:19 18 95 02/10/25 19:24 97.6 F 79 18 122/62 97 02/10/25 15:30 98 02/10/25 15:18 97.6 F 90 21 127/53 93 L 40 02/10/25 15:05 82 02/10/25 14:51 40 02/10/25 14:50 84 02/10/25 13:33 97.2 F L 74 131/71 92 L 40 02/10/25 13:31 90 L 40 02/10/25 13:30 88 L 40 02/10/25 13:29 85 L 40 02/10/25 13:28 80 L 02/10/25 12:00 98.3 F 80 20 117/70 91 L Intake and Output 02/10/25 02/11/25 02/11/25 22:59 06:59 14:59 Intake Total 232 222 Output Total 500 850 Balance 006 -850 -897 Intake: IV 10 Invasive Line 1 10 Oral 222 222 Output: Urine 500 850 Other: Voiding Method External Catheter External Catheter Bedpan Diaper External Catheter # Voids 2 3 Weight 83 kg General: Patient is lying in bed and is not in acute distress Neuro: Somewhat limited because of her hearing loss as well as some confusion. Patient is a awake alert oriented to self place and time. Is following simple commands. No aphasia. Pupils are the right is about 4 mm left is 3 mm at times it is felt 4 mm round bilaterally and reactive to light. Visual flores are full to confrontation. Extraocular movements intact no nystagmus. Normal facial sensation to touch. No facial weakness. No dysarthria. Motor: Strength is 5 out of 5 throughout Cerebellar is normal [id number] bilaterally Reflexes is 2 positive throughout Plantars are mute bilaterally. Results - Laboratory Findings CBC and BMP: 02/11/25 08:04 02/11/25 08:04 Abnormal Lab Findings: Abnormal Labs 02/08/25 02/08/25 02/08/25 10:08 10:08 10:08 WBC 22.76 H RBC 2.95 L Hgb 9.0 L Hct 29.3 L MCV 99.3 H MCHC 30.7 L MPV 8.7 L Immature Gran # 0.22 H Neutrophils # 18.16 H Monocytes # 2.30 H Sodium 132 L Chloride 81 L Carbon Dioxide 47 H* BUN 18 H Creatinine 0.46 L POC Glucose (mg/dL) Plasma Lactic Acid Joel 0.6 L Total Protein 5.1 L Albumin 2.9 L 02/08/25 02/08/25 02/09/25 16:56 20:04 06:24 WBC RBC Hgb Hct MCV MCHC MPV Immature Gran # Neutrophils # Monocytes # Sodium Chloride Carbon Dioxide BUN Creatinine POC Glucose (mg/dL) 193 H 191 H 169 H Plasma Lactic Acid Joel Total Protein Albumin 02/09/25 02/09/25 02/09/25 11:16 16:13 20:13 WBC RBC Hgb Hct MCV MCHC MPV Immature Gran # Neutrophils # Monocytes # Sodium Chloride Carbon Dioxide BUN Creatinine POC Glucose (mg/dL) 120 H 226 H 308 H Plasma Lactic Acid Joel Total Protein Albumin 02/10/25 02/10/25 02/10/25 06:33 06:33 11:39 WBC 15.65 H RBC 3.06 L Hgb 9.1 L Hct 31.1 L MCV 101.6 H MCHC 29.3 L MPV 8.7 L Immature Gran # 0.16 H Neutrophils # 11.43 H Monocytes # 1.50 H Sodium 132 L Chloride 88 L Carbon Dioxide 42 H* BUN Creatinine 0.51 L POC Glucose (mg/dL) 162 H Plasma Lactic Acid Joel Total Protein Albumin 02/10/25 02/10/25 02/10/25 15:29 16:48 19:51 WBC RBC Hgb Hct MCV MCHC MPV Immature Gran # Neutrophils # Monocytes # Sodium Chloride Carbon Dioxide BUN Creatinine POC Glucose (mg/dL) 146 H 246 H 153 H Plasma Lactic Acid Joel Total Protein Albumin 02/11/25 02/11/25 08:04 08:04 WBC 17.37 H RBC 3.31 L Hgb 10.1 L Hct 33.8 L MCV 102.1 H MCHC 29.9 L MPV 8.5 L Immature Gran # 0.14 H Neutrophils # 13.29 H Monocytes # 1.97 H Sodium 132 L Chloride 88 L Carbon Dioxide 39 H BUN Creatinine POC Glucose (mg/dL) Plasma Lactic Acid Joel Total Protein Albumin Assessment and Plan Assessment: This is a 69-year-old woman who presents emergency department because of hypoxia. Her oxygen saturation at her nursing facility was 70% our facility she has also hypercapnic. She is getting oxygen therapy as well as on nebulizer and it seems that overnight yesterday she had unequal pupils as well as confused. CT of the head is unremarkable for any acute process. Anisocoria probable due to breathing treatment (Nebulizer). Currently is better. Altered mental status due to hypoxic/hypercapnic encephalopathy. Also Hospital induced delirium Chronic hypoxic and hypercapnic respiratory failure secondary due to exacerbation of COPD History of hypoglycemia in the past causing confusion Left hemidiaphragm elevation History of COPD Chronic tobacco dependence Hypothyroidism Hypertension History of bipolar History of anxiety Plan: Ordered MRI of the brain and if MRI reveals a stroke then will get the rest of stroke workup Ordered ammonia level, B12 Patient had a recent TSH on 01/12/2025 and it was normal therefore I will not get a repeat. Pulmonary team is consulted Will defer the rest of the medical management to primary other specialist The plan is discussed with the nurse. Thank you for the consultation. Time with Patient: Greater than 30
[2025-02-11 12:03] LABS: Glucose,Whole Blood 338 mg/dL (70-110)
--- NOTE | 2025-02-11 12:30 | P.PN ---
Subjective Progress Note Date: 02/11/25 Principal diagnosis: Acute on chronic hypoxic respiratory failure, multifactorial This is a 69-year-old female patient appears older than stated age with multiple admissions to the hospital mostly related to COPD. She was recently discharged to [facility] on the [facility] however she was brought back here yesterday after being found to have O2 saturations in the mid 70s. She is normally oxygen dependent at 4 to 5 L. She is normally BiPAP dependent at night. Chest x-ray shows very low lung volumes findings suggestive of interstitial pulmonary edema with trace pleural effusions. Sputum culture from yesterday is pending. She did have sputum positive MRSA January 25, 2025 and sputum positive Pseudomonas aeruginosa in December 25, 2024. Legionella screen is negative. White count 22.7. Hemoglobin 9.0. Platelets 279. Sodium 132. Potassium 4.3. Bicarb 47. BUN 4018. Creatinine 0.46. Glucose 191. Troponin negative x 1. proBNP 316. She is seen today in consultation on the selective care unit. She is sitting up having breakfast. Awake and alert in no acute distress. Feeling a bit better today compared to yesterday. Maintaining O2 saturation in the low 90s on 5 L high flow nasal cannula. She is afebrile. Hemodynamically stable. Seen today on 02/10/2025, patient continues to have intermittent cough, cough is productive with yellow phlegm, no fever no chills no hemoptysis, remains on oxygen, 5 L nasal cannula with O2 sat of 92%. Sputum Gram stain is showing m ostly gram-negative bacilli, final culture is pending in the meantime patient is on broad-spectrum antibiotics, previously she had pseudomonal infections and she also had history of MRSA infections. Addressing potentially both for now. WBC is 15.6 hemoglobin 12.1 electrolytes are normal except for bicarb of 42 which is expected considering her chronic hypercapnic respiratory failure. Chest x-ray on this admission showed patchy bibasilar opacities consistent with pneumonia and she had small pleural effusions. Patient was seen today on 02/11/2025, basically about the same, continues to have intermittent cough, shortness of breath, cough is productive with yellow phlegm, no fever no chills no hemoptysis. She is now on 8 L high flow nasal cannula with O2 saturation ranging between 94 up to 97%, she did have episodes of mental status change, patient does have history of chronic hypercapnic respiratory failure, her average pCO2 is in the 70s. Patient should use BiPAP if she develops any worsening pulmonary status or any worsening mental status. She is prone to develop worsening hypercapnia and mental status changes related to hypercapnia as well as hypoxia. Labs today show WBC count of 17.3 hemoglobin 10.1 electrolytes are normal bicarb is 39 which is clearly indicative of the p atient's chronic hypercapnia with metabolic compensation. Blood sugar was 338 this morning. Patient remains on broad-spectrum antibiotics. Including cefepime and vancomycin. Objective - Vital Signs Vital signs: Vital Signs Temp 98.3 F 02/11/25 12:22 Pulse 92 02/11/25 12:22 Resp 24 02/11/25 12:22 BP 120/88 02/11/25 12:22 Pulse Ox 94 L 02/11/25 12:22 FiO2 40 02/11/25 04:45 Intake & Output 02/10/25 02/11/25 02/11/25 18:59 06:59 18:59 Intake Total 350 10 444 Output Total 500 850 Balance 350 -490 -406 Weight 83 kg Intake: IV 10 10 Invasive Line 1 10 10 Oral 340 444 Output: Urine 500 850 Other: Voiding Method External Catheter External Catheter Bedpan Diaper External Catheter # Voids 2 3 - Exam GENERAL EXAM: Alert, 69-year-old female, appears older than stated age, on 8 L high flow nasal cannula HEAD: Normocephalic. EYES: Normal reaction of pupils, equal size. NOSE: Clear with pink turbinates. THROAT: No erythema or exudates. NECK: No masses, no JVD. CHEST: No chest wall deformity. LUNGS: Equal air entry with few scattered rhonchi, crackles in the posterior bases. CVS: S1 and S2 normal with no audible murmur, regular rhythm. ABDOMEN: No hepatosplenomegaly, normal bowel sounds, no guarding or rigidity. SPINE: No scoliosis or deformity SKIN: No rashes CENTRAL NERVOUS SYSTEM: Alert and oriented x 3 no focal deficit EXTREMITIES: Trace bipedal edema, good pulses - Labs CBC & Chem 7: 02/11/25 08:04 02/11/25 08:04 Labs: Abnormal Lab Results - Last 24 Hours (Table) 02/10/25 02/10/25 02/10/25 Range/Units 15:29 16:48 19:51 WBC (4.50-10.00) 10*3/uL RBC (4.10-5.20) 10*6/uL Hgb (12.0-15.0) g/dL Hct (37.2-46.3) % MCV (80.0-97.0) fL MCHC (32.0-37.0) g/dL MPV (9.5-12.2) fL Immature Gran # (0.00-0.04) 10*3/uL Neutrophils # (1.80-7.70) 10*3/uL Monocytes # (0.20-1.00) 10*3/uL Sodium (137-145) mmol/L Chloride (98-107) mmol/L Carbon Dioxide (22-30) mmol/L POC Glucose (mg/dL) 146 H 246 H 153 H (70-110) mg/dL 02/11/25 02/11/25 02/11/25 Range/Units 08:04 08:04 12:02 WBC 17.37 H (4.50-10.00) 10*3/uL RBC 3.31 L (4.10-5.20) 10*6/uL Hgb 10.1 L (12.0-15.0) g/dL Hct 33.8 L (37.2-46.3) % MCV 102.1 H (80.0-97.0) fL MCHC 29.9 L (32.0-37.0) g/dL MPV 8.5 L (9.5-12.2) fL Immature Gran # 0.14 H (0.00-0.04) 10*3/uL Neutrophils # 13.29 H (1.80-7.70) 10*3/uL Monocytes # 1.97 H (0.20-1.00) 10*3/uL Sodium 132 L (137-145) mmol/L Chloride 88 L (98-107) mmol/L Carbon Dioxide 39 H (22-30) mmol/L POC Glucose (mg/dL) 338 H (70-110) mg/dL Microbiology - Last 24 Hours (Table) 02/08/25 18:42 Gram Stain - Final Sputum Sputum Culture - Final Hafnia alvei Proteus mirabilis 07/25/25 16:44 Nasal Screen MRSA/MSSA - Final Nasal Swab Methicillin resist S. aureus 02/08/25 12:53 Blood Culture - Preliminary Blood Assessment and Plan Assessment: Impression: Acute on chronic hypoxic and hypercapnic respiratory failure secondary to an acute exacerbation of chronic obstructive pulmonary disease and possible underlying pneumonia. Recent sputum culture positive for MRSA January 25, 2025 and a previous sputum culture positive for Pseudomonas aeruginosa on December 22, 2024, empirically the patient is now on cefepime for her Pseudomonas aeruginosa possibility and on vancomycin for MRSA possibility. Multiple admissions for the same most recently discharged to [facility] on 01/30/2025 History of hypoglycemia with altered mental status Left hemidiaphragm elevation Chronic obstructive pulmonary disease with an FEV1 value 64% of predicted Chronic hypoxemic respiratory failure maintained on oxygen 4 to 5 L Chronic tobacco dependence Hypothyroidism Hypertension History of mediastinal lymphadenopathy History of gastric bypass surgery History of bipolar disorder History of fibromyalgia with chronic pain syndrome History of anxiety Poor overall functional performance based on the above-mentioned multiple comorbidities Recommendation: Continue antibiotics including cefepime and vancomycin, adjust based on her final sputum and blood cultures. Continue DuoNeb Continue prednisone Continue Symbicort Continue Mucinex Resume home meds DVT prophylaxis Counseled regarding smoke cessation continue NicoDerm patch for now Will continue to follow Time with Patient: Less than 30
--- NOTE | 2025-02-11 15:20 | P.PN ---
Subjective Progress Note Date: 02/11/25 Principal diagnosis: Reason for follow-up pneumonia Patient is a 69-year-old female with a past medical history significant for COPD history of recurrent pneumonia recently did have MRSA pneumonia for the patient has been on IV vancomycin at the senior care was sent to the hospital for hypoxemia shortness of breath chest x-ray mostly interstitial infiltrate did have elevated white count. On today's evaluation that is 02/11/2025, Patient is afebrile patient is curr ently on BiPAP breathing slightly comfortably denies any worsening shortness of breath chest pain or worsening cough no abdominal pain or diarrhea. The patient white count is 17.37, creatinine 0.57 Vanco trough is 20.2 sputum is now growing Proteus and Hafnia Objective - Vital Signs Vital signs: Vital Signs Temp 98.3 F 02/11/25 12:22 Pulse 92 02/11/25 12:22 Resp 24 02/11/25 12:22 BP 120/88 02/11/25 12:22 Pulse Ox 94 L 02/11/25 12:22 FiO2 40 02/11/25 04:45 Intake & Output 02/10/25 02/11/25 02/11/25 18:59 06:59 18:59 Intake Total 350 10 444 Output Total 500 1850 Balance 350 -490 -1406 Weight 83 kg Intake: IV 10 10 Invasive Line 1 10 10 Oral 340 444 Output: Urine 500 1850 Other: Voiding Method External Catheter External Catheter Bedpan Diaper External Catheter # Voids 2 3 - Exam GENERAL DESCRIPTION: An elderly female lying in bed in no distress RESPIRATORY SYSTEM: Unlabored breathing , coarse breath sounds HEART: S1 S2 regular rate and rhythm , ABDOMEN: Soft , no tenderness EXTREMITIES: No edema feet - Labs CBC & Chem 7: 02/11/25 08:04 02/11/25 08:04 Labs: Abnormal Lab Results - Last 24 Hours (Table) 02/10/25 02/10/25 02/10/25 Range/Units 15:29 16:48 19:51 WBC (4.50-10.00) 10*3/uL RBC (4.10-5.20) 10*6/uL Hgb (12.0-15.0) g/dL Hct (37.2-46.3) % MCV (80.0-97.0) fL MCHC (32.0-37.0) g/dL MPV (9.5-12.2) fL Immature Gran # (0.00-0.04) 10*3/uL Neutrophils # (1.80-7.70) 10*3/uL Monocytes # (0.20-1.00) 10*3/uL Sodium (137-145) mmol/L Chloride (98-107) mmol/L Carbon Dioxide (22-30) mmol/L POC Glucose (mg/dL) 146 H 246 H 153 H (70-110) mg/dL 02/11/25 02/11/25 02/11/25 Range/Units 08:04 08:04 12:02 WBC 17.37 H (4.50-10.00) 10*3/uL RBC 3.31 L (4.10-5.20) 10*6/uL Hgb 10.1 L (12.0-15.0) g/dL Hct 33.8 L (37.2-46.3) % MCV 102.1 H (80.0-97.0) fL MCHC 29.9 L (32.0-37.0) g/dL MPV 8.5 L (9.5-12.2) fL Immature Gran # 0.14 H (0.00-0.04) 10*3/uL Neutrophils # 13.29 H (1.80-7.70) 10*3/uL Monocytes # 1.97 H (0.20-1.00) 10*3/uL Sodium 132 L (137-145) mmol/L Chloride 88 L (98-107) mmol/L Carbon Dioxide 39 H (22-30) mmol/L POC Glucose (mg/dL) 338 H (70-110) mg/dL Microbiology - Last 24 Hours (Table) 02/08/25 18:42 Gram Stain - Final Sputum Sputum Culture - Final Hafnia alvei Proteus mirabilis 02/09/25 16:44 Nasal Screen MRSA/MSSA - Final Nasal Swab Methicillin resist S. aureus 02/08/25 12:53 Blood Culture - Preliminary Blood Assessment and Plan (1) Leukocytosis Current Visit: Yes Status: Acute Code(s): D72.829 - ELEVATED WHITE BLOOD CELL COUNT, UNSPECIFIED SNOMED Code(s): 522530256 (2) Allergy to multiple antibiotics Current Visit: No Status: Acute Code(s): Z88.1 - ALLERGY STATUS TO OTHER ANTIBIOTIC AGENTS SNOMED Code(s): 199416367 (3) Pneumonia Current Visit: No Status: Acute Code(s): J18.9 - PNEUMONIA, UNSPECIFIED ORGANISM SNOMED Code(s): 952779596 Plan: 1patient presented to hospital with hypoxemia increasing shortness of breath which is likely multifactorial with question of possible fluid overload possibly secondary to pneumonia in this patient who did have a history of recurrent pneumonia and recently completed course of for drug-resistant Pseudomonas followed by MRSA 2-sputum culture have been finalized with Proteus and Hafnia both of them are sensitive to Rocephin 3- will discontinue vancomycin and cefepime and start the patient on Rocephin 2 g daily Dictation was produced using [employer] dictation software. please excuse any grammatical, word or spelling errors. Time with Patient: Less than 30
[2025-02-11 17:02] LABS: Glucose,Whole Blood 141 mg/dL (70-110)
[2025-02-11] MEDS: HYDROcodone/APAP 7.5-325MG 1 EACH TAB PO PRN (17:36)
[2025-02-11 20:00] LABS: Glucose,Whole Blood 111 mg/dL (70-110)
[2025-02-12] MEDS ORDERED: VANCOMYCIN 1,500 MG in SODIUM CHLORIDE 0.9% 500 ML 500 ML IVPB SCH
--- NOTE | 2025-02-12 00:09 | P.PN ---
Subjective Progress Note Date: 02/11/25 HISTORY OF PRESENT ILLNESS: This is a 69-year-old female with a past medical history significant for co ngestive heart failure, COPD, pneumonia, lung mass, hypertension, and obesity. Patient follows in the office with Dr. Last. We have been asked to see the patient in consultation for congestive heart failure. Patient examined at the bedside. Patients spouse is at the bedside and providing majority of HPI. Patient states she has not been feeling well for the past couple months and has been in and out of the hospital. She was recently discharged from the hospital and sent to [facility]. She presented back to the hospital due to low oxygen saturations. She denies having any chest pain or pressure. She does report a cough with patel sputum production. She denies any worsening lower extremity edema. She is currently on 5 L nasal cannula. She is a former smoker and stopping smoking about 2-3 months ago. DIAGNOSTICS: - EKG reveals sinus mechanism with LVH. No signs of acute ischemia. - Chest xray mild to moderate cardiomegaly with ongoing interstitial pulmonary edema, slightly improved from prior. Patchy bibasilar opacities and trace bilateral pleural effusions persist. - Laboratory data: WBC 22.76. Hemoglobin 9.0. Platelet count 279. Sodium 132. Potassium 4.3. BUN 18. Creatinine 0.46. Troponin negative x 1. proBNP 316. - Current home cardiac medications include amlodipine 5 mg twice a day, metoprolol tartrate 25 mg twice a day, Lasix 40 mg daily, aspirin 81 mg daily. - Most recent echocardiogram obtained in 03/2024 revealing ejection fraction 55 to 60%, no obvious regional wall motion abnormalities, trace MR -Patient underwent Lexiscan stress test in January 2023 revealing fixed inferior perfusion defect consistent with diaphragmatic attenuation artifact. No other m yocardial perfusion defects to suggest ischemia. Ejection fraction 60%. - Cardiac catheterization history: Unknown 02/10/2025 Patient examined this morning at the bedside. Patient currently denies chest pain or pressure. She denies shortness of breath. She remains on 5 L nasal cannula. 2D echo remains pending. Patient is upset this morning as she states her brother is not doing well physically. 02/11/2025 Echo results are pending, still on 4 to 5 L of oxygen Patient appears depressed and is very tearful Denies any chest pain chest pressure however does report shortness of breath. PHYSICAL EXAM: VITAL SIGNS: Reviewed. GENERAL: Well-developed in no acute distress. HEENT: Head is normocephalic. Pupils are equal, round. Sclerae anicteric. Mucous membranes of the mouth are moist. Neck supple. No JVD or thyromegaly LUNGS: Respirations even and unlabored. Lungs with wheezing bilateral HEART: Regular rate and rhythm. S1 and S2 heard. ABDOMEN: Soft. Nondistended. Nontender. EXTREMITIES: Normal range of motion. No clubbing or cyanosis. Peripheral pulses intact. Minimal lower extremity edema NEUROLOGIC: Awake and alert. Oriented x 3. ASSESSMENT: Leukocytosis Acute hypoxic respiratory failure Chronic heart failure with preserved EF History of COPD History of pneumonia History of lung mass Hypertension Obesity: BMI 35.5 PLAN: Patients symptoms appear to be primarily pulmonary in origin and not cardiac Patient does not require IV diuresis at this time. Continue oral Lasix 40 mg daily Continue additional cardiac medications including amlodipine, aspirin, metoprolol 2D echo has been ordered. Await results. Wean oxygen as tolerated Further recommendations pending patient course Objective - Vital Signs Vital signs: Vital Signs Temp 97.5 F L 02/11/25 23:14 Pulse 60 02/11/25 23:14 Resp 17 02/11/25 23:14 BP 100/64 02/11/25 23:14 Pulse Ox 99 02/11/25 23:14 FiO2 40 02/11/25 15:30 Intake & Output 02/11/25 02/11/25 02/12/25 06:59 18:59 06:59 Intake Total 10 444 Output Total 500 2350 Balance -490 -1906 Weight 83 kg Intake: IV 10 Invasive Line 1 10 Oral 444 Output: Urine 500 2350 Other: Voiding Method External Catheter Bedpan Bedpan Diaper Diaper External Catheter External Catheter # Voids 3 - Labs CBC & Chem 7: 02/11/25 08:04 02/11/25 08:04 Labs: Abnormal Lab Results - Last 24 Hours (Table) 02/11/25 02/11/25 02/11/25 Range/Units 08:04 08:04 12:02 WBC 17.37 H (4.50-10.00) 10*3/uL RBC 3.31 L (4.10-5.20) 10*6/uL Hgb 10.1 L (12.0-15.0) g/dL Hct 33.8 L (37.2-46.3) % MCV 102.1 H (80.0-97.0) fL MCHC 29.9 L (32.0-37.0) g/dL MPV 8.5 L (9.5-12.2) fL Immature Gran # 0.14 H (0.00-0.04) 10*3/uL Neutrophils # 13.29 H (1.80-7.70) 10*3/uL Monocytes # 1.97 H (0.20-1.00) 10*3/uL Sodium 132 L (137-145) mmol/L Chloride 88 L (98-107) mmol/L Carbon Dioxide 39 H (22-30) mmol/L POC Glucose (mg/dL) 338 H (70-110) mg/dL 02/11/25 02/11/25 Range/Units 17:01 19:58 WBC (4.50-10.00) 10*3/uL RBC (4.10-5.20) 10*6/uL Hgb (12.0-15.0) g/dL Hct (37.2-46.3) % MCV (80.0-97.0) fL MCHC (32.0-37.0) g/dL MPV (9.5-12.2) fL Immature Gran # (0.00-0.04) 10*3/uL Neutrophils # (1.80-7.70) 10*3/uL Monocytes # (0.20-1.00) 10*3/uL Sodium (137-145) mmol/L Chloride (98-107) mmol/L Carbon Dioxide (22-30) mmol/L POC Glucose (mg/dL) 141 H 111 H (70-110) mg/dL Microbiology - Last 24 Hours (Table) 02/08/25 12:53 Blood Culture - Preliminary Blood 02/08/25 18:42 Gram Stain - Final Sputum Sputum Culture - Final Hafnia alvei Proteus mirabilis 02/09/25 16:44 Nasal Screen MRSA/MSSA - Final Nasal Swab Methicillin resist S. aureus
--- NOTE | 2025-02-12 04:26 | PN ---
PROGRESS NOTE DATE OF SERVICE: 02/11/2025 SUBJECTIVE: This 69-year-old woman, who was admitted with shortness of breath multifactorial COPD, CHF, acute exacerbation closely monitored, no chest pain. No palpitation. The patient is extremely anxious. OBJECTIVE: VITAL SIGNS: Pulse 80, blood pressure 130/71, respirations 17. CHEST: Scattered rhonchi and crackles. ABDOMEN: Soft. NERVOUS SYSTEM: Nonfocal. LABORATORY DATA: Reviewed. ASSESSMENT: 1. Shortness of breath with multifactorial chronic obstructive pulmonary disease, congestive heart failure acute exacerbation. 2. Possible underlying pneumonia with sputum culture and positive for methicillin- resistant Staphylococcus aureus as well as Pseudomonas history. 3. Increased WBC. 4. History of asthma. 5. History of gastroesophageal reflux disease. 6. Multiple complex medical issues. RECOMMENDATIONS AND DISCUSSION: I recommend to continue current management and symptomatic treatment. Otherwise, at this time, I recommend to continue the current medications. Monitor blood sugars closely. Continue with bronchodilators, anxiety medications. Guarded prognosis. Further recommendations to follow. MMODL / IJN: [id number] /
[2025-02-12 06:12] LABS: Glucose,Whole Blood 89 mg/dL (70-110)
[2025-02-12] MEDS: LORazepam 0.5 MG TAB PO PRN (06:38)
--- NOTE | 2025-02-12 07:25 | XR ---
EXAMINATION TYPE: XR chest 1V DATE OF EXAM: 02/12/2025 7:01 AM COMPARISON: Chest radiographs from 02/09/2025 TECHNIQUE: XR chest 1V Portable AP radiograph of the chest. CLINICAL INDICATION:Female, 69 years old with history of Pneumonia; FINDINGS: Lungs/Pleura: No pneumothorax or sizable pleural effusion. Diffuse bilateral interstitial patchy opac ities persist. Similar asymmetric elevation of the left hemidiaphragm. Heart/mediastinum: Cardiomediastinal silhouette is enlarged and stable. Atherosclerotic calcificatio ns are seen in the aorta. Musculoskeletal: No acute osseous pathology. Other findings: None Lines/Tubes: Stable position of right PICC line with distal tip at the lower SVC. IMPRESSION: Overall no significant change with diffuse interstitial pulmonary edema and patchy bibasilar opacitie s. [facility] davey [place], , 02/12/2025 7:23 AM
[2025-02-12 11:32] LABS: Glucose,Whole Blood 202 mg/dL (70-110)
--- NOTE | 2025-02-12 13:10 | CA ---
Transthoracic Echo Report Name: Haydee Mcpherson Age: 69 Gender: F : 1955 Exam Date: 02/12/2025 09:09 Exam Location: [facility] Ht (in): 60 Wt (lb): 181 Ordering Physician: Torie Hansen Attending/Referring Phys: [id number], [employer] Amy Ontiverso [facility] Procedure CPT: Indications: sob, chf Cardiac Hx: Technical Quality: Poor Contrast 1: Total Dose (mL): Contrast 2: Total Dose (mL): MEASUREMENTS (Male / Female) Normal Values 2D ECHO LV Diastolic Diameter PLAX 4.5 cm 4.2 - 5.9 / 3.9 - 5.3 cm LV Systolic Diameter PLAX 3.1 cm IVS Diastolic Thickness 1.2 cm 0.6 - 1.0 / 0.6 - 0.9 cm LVPW Diastolic Thickness 1.5 cm 0.6 - 1.0 / 0.6 - 0.9 cm LV Relative Wall Thickness 0.6 RV Internal Dim ED PLAX 2.0 cm LVOT Diameter 2.1 cm LA Systolic Diameter LX 3.4 cm 3.0 - 4.0 / 2.7 - 3.8 cm LV Diastolic Volume MOD BP 80.7 cm??? 67 - 155 / 56 - 104 cm??? LV Systolic Volume MOD BP 34.7 cm??? 22 - 58 / 19 - 49 cm??? LV Ejection Fraction MOD BP 57.0 % >= 55 % LV Cardiac Index MOD BP 2030.6 cm???/min???m??? LV Diastolic Volume MOD 4C 83.1 cm??? LV Systolic Volume MOD 4C 28.9 cm??? LV Ejection Fraction MOD 4C 65.2 % LV Cardiac Index MOD 4C 2388.2 cm???/min???m??? LV Diastolic Length 4C 7.2 cm LV Systolic Length 4C 6.4 cm LV Diastolic Volume MOD 2C 77.1 cm??? LV Systolic Volume MOD 2C 41.1 cm??? LV Ejection Fraction MOD 2C 46.7 % LV Cardiac Index MOD 2C 1588.1 cm???/min???m??? LV Diastolic Length 2C 7.0 cm LV Systolic Length 2C 6.6 cm LA Volume 55.5 cm??? 18 - 58 / 22 - 52 cm??? LA Volume Index 29.1 cm???/m??? 16 - 28 cm???/m??? M-MODE Aortic Root Diameter MM 3.4 cm AV Cusp Separation MM 2.2 cm DOPPLER AV Peak Velocity 126.0 cm/s AV Peak Gradient 6.3 mmHg LVOT Peak Velocity 122.2 cm/s LVOT Peak Gradient 6.0 mmHg AV Area Cont Eq pk 3.5 cm??? MV Area PHT 4.3 cm??? Mitral E Point Velocity 92.3 cm/s Mitral A Point Velocity 81.0 cm/s Mitral E to A Ratio 1.1 MV Deceleration Time 175.5 ms FINDINGS Left Ventricle Left ventricular ejection fraction is estimated at 55-60 %. Normal left ventricular systolic function with no obvious regional wall motion abnormalities. Left ventricular cavity size normal. Mildly increased left ventricular wall thickness. Right Ventricle Right ventricle not well visualized. Right ventricular systolic pressure within normal limits. Right Atrium Normal right atrial size. No right atrial thrombus or mass seen. Left Atrium Mildly increased left atrial volume. No left atrial thrombus or mass present. Mitral Valve Mitral valve thickened. Mitral annular calcification. Trace mitral regurgitation. Aortic Valve Diffuse thickening (sclerosis) of the aortic valve cusps without reduced excursion.no aortic stenosis. No aortic regurgitation. Tricuspid Valve Tricuspid valve not well visualized. trace tricuspid regurgitation. Pulmonic Valve Pulmonic valve not well visualized. No pulmonic regurgitation. Pericardium No pericardial effusion. Aorta Normal size aortic root , not well visualizedproximal ascending aorta. CONCLUSIONS 1. Normal left ventricular size and systolic function 2. Limited Doppler study with trace mitral and tricuspid regurgitation Previewed by: Dr. Tanvir Moseley MD (Electronically Signed) Final Date: 12 February 2025 13:09
--- NOTE | 2025-02-12 13:14 | P.PN ---
Subjective Progress Note Date: 02/12/25 Principal diagnosis: Respiratory failure. This is a 69-year-old female patient appears older than stated age with multiple admissions to the hospital mostly related to COPD. She was recently discharged to [facility] on the [facility] however she was brought back here yesterday after being found to have O2 saturations in the mid 70s. She is normally oxygen dependent at 4 to 5 L. She is normally BiPAP dependent at night. Chest x-ray shows very low lung volumes findings suggestive of interstitial pulmonary edema with trace pleural effusions. Sputum culture from yesterday is pending. She did have sputum positive MRSA January 25, 2025 and sputum positive Pseudomonas aeruginosa in December 25, 2024. Legionella screen is negative. White count 22.7. Hemoglobin 9.0. Platelets 279. Sodium 132. Potassium 4.3. Bicarb 47. BUN 4018. Creatinine 0.46. Glucose 191. Troponin negative x 1. proBNP 316. She is seen today in consultation on the selective care unit. She is sitting up having breakfast. Awake and alert in no acute distress. Feeling a bit better today compared to yesterday. Maintaining O2 saturation in the low 90s on 5 L high flow nasal cannula. She is afebrile. Hemodynamically stable. Seen today on 02/10/2025, patient continues to have intermittent cough, cough is productive with yellow phlegm, no fever no chills no hemoptysis, remains on oxygen, 5 L nasal cannula with O2 sat of 92%. Sputum Gram stain is showing mostly gram-negative bacilli, final culture is pending in the meantime patient is on broad-spectrum antibiotics, previously she had pseudomonal infections and she also had history of MRSA infections. Addressing potentially both for now. WBC is 15.6 hemoglobin 12.1 electrolytes are normal except for bicarb of 42 which is expected considering her chronic hypercapnic respiratory failure. Chest x-ray on this admission showed patchy bibasilar opacities consistent with pneumonia and she had small pleural effusions. Patient was seen today on 02/11/2025, basically about the same, continues to have intermittent cough, shortness of breath, cough is productive with yellow phlegm, no fever no chills no hemoptysis. She is now on 8 L high flow nasal cannula with O2 saturation ranging between 94 up to 97%, she did have episodes of mental status change, patient does have history of chronic hypercapnic respiratory failure, her average pCO2 is in the 70s. Patient should use BiPAP if she develops any worsening pulmonary status or any worsening mental status. She is prone to develop worsening hypercapnia and mental status changes related to hypercapnia as well as hypoxia. Labs today show WBC count of 17.3 hemoglobin 10.1 electrolytes are normal bicarb is 39 which is clearly indicative of the patient's chronic hypercapnia with metabolic compensation. Blood sugar was 338 this morning. Patient remains on broad-spectrum antibiotics. Including cefepime and vancomycin. Progress note dated February 12, 2025. 69-year-old female well-known to our service. She is seen today in room 363. She continues on saline at 10 cc an hour, and nasal cannula at 6 L. Her BiPAP settings are 12/6, and 40%. She continues on antibiotics. She is in no distress. She is awake and alert. She is resting comfortably in bed. No new laboratory data today. Nasal screen was positive for methicillin-resistant Staph aureus. Sputum from February 08 shows evidence of Proteus mirabilis, and Hafnia. Objective - Vital Signs Vital signs: Vital Signs Temp 98 F 02/12/25 08:00 Pulse 68 02/12/25 12:16 Resp 18 02/12/25 11:07 BP 122/59 02/12/25 11:07 Pulse Ox 94 L 02/12/25 11:07 FiO2 40 02/12/25 04:20 Intake & Output 02/11/25 02/12/25 02/12/25 18:59 06:59 18:59 Intake Total 444 714 Output Total 2350 200 1450 Balance -1906 -200 -736 Weight 83 kg Intake: Oral 444 714 Output: Urine 2350 200 1450 Other: Voiding Method Bedpan Bedpan External Catheter Diaper Diaper External Catheter External Catheter # Voids 3 - Exam No acute distress, oriented 3. Currently on 6 L. HEENT examination is grossly unremarkable. Mucous membranes are moist. No oral lesions. Neck supple. Full range of motion. No adenopathy thyromegaly or neck vein distention. Cardiovascular examination reveals regular rhythm rate. S1-S2 normal. No S3 or S4. No discernible murmur noted. Lungs reveal bilateral scattered rhonchi. No wheezes. No crackles. Breath sounds are equal bilaterally. Abdomen soft bowel sounds are heard. No masses or tenderness. Extremities are intact. No cyanosis clubbing or edema. Skin is without rash or lesion. Neurologic examination is brief but nonfocal. - Labs CBC & Chem 7: 02/11/25 08:04 02/11/25 08:04 Labs: Abnormal Lab Results - Last 24 Hours (Table) 02/11/25 02/11/25 02/11/25 Range/Units 10:56 17:01 19:58 POC Glucose (mg/dL) 141 H 111 H (70-110) mg/dL Vitamin B12 1951.0 H (200.0-944.0) pg/mL 02/12/25 Range/Units 11:30 POC Glucose (mg/dL) 202 H (70-110) mg/dL Vitamin B12 (200.0-944.0) pg/mL Microbiology - Last 24 Hours (Table) 02/08/25 12:53 Blood Culture - Preliminary Blood 02/08/25 18:42 Gram Stain - Final Sputum Sputum Culture - Final Hafnia alvei Proteus mirabilis Assessment and Plan Assessment: Acute on chronic hypoxemic and hypercapnic respiratory failure, secondary to COPD exacerbation, and possible underlying pneumonia. Multiple hospital admissions, for similar diagnoses. History of hypoglycemia, with mental status changes. Left hemidiaphragm elevation, chronic. Moderate COPD with an FEV1 at 64% of predicted. Chronic hypoxemic respiratory failure, maintained on oxygen. Chronic tobacco dependence. Hypothyroidism. History of hypertension. History of mediastinal lymphadenopathy. History of gastric bypass surgery. History of bipolar disorder. History of fibromyalgia/chronic pain syndrome. History of anxiety. General medical debility. Plan: Plan dated February 12, 2025. The patient is seen today in room 363. The patient continues on nasal O2 at 6 L. That is down from 8 L yesterday. The patient is on saline at 10 cc an hour. The patient's BiPAP settings are 12/6, and 40%. The patient continues on Rocephin. She was previously on vancomycin and cefepime. Sputum sample shows evidence of Proteus species, and Hafnia. We will continue to follow make recommendations along the way. All labs, x-rays, and medications are reviewed. Dictation was produced using iSnapation software. Please excuse any grammatical, word or spelling errors. Time with Patient: Less than 30
--- NOTE | 2025-02-12 13:19 | P.PN ---
Subjective Progress Note Date: 02/12/25 HISTORY OF PRESENT ILLNESS: This is a 69-year-old female with a past medical history significant for co ngestive heart failure, COPD, pneumonia, lung mass, hypertension, and obesity. Patient follows in the office with Dr. Last. We have been asked to see the patient in consultation for congestive heart failure. Patient examined at the bedside. Patients spouse is at the bedside and providing majority of HPI. Patient states she has not been feeling well for the past couple months and has been in and out of the hospital. She was recently discharged from the hospital and sent to [facility]. She presented back to the hospital due to low oxygen saturations. She denies having any chest pain or pressure. She does report a cough with patel sputum production. She denies any worsening lower extremity edema. She is currently on 5 L nasal cannula. She is a former smoker and stopping smoking about 2-3 months ago. DIAGNOSTICS: - EKG reveals sinus mechanism with LVH. No signs of acute ischemia. - Chest xray mild to moderate cardiomegaly with ongoing interstitial pulmonary edema, slightly improved from prior. Patchy bibasilar opacities and trace bilateral pleural effusions persist. - Laboratory data: WBC 22.76. Hemoglobin 9.0. Platelet count 279. Sodium 132. Potassium 4.3. BUN 18. Creatinine 0.46. Troponin negative x 1. proBNP 316. - Current home cardiac medications include amlodipine 5 mg twice a day, metoprolol tartrate 25 mg twice a day, Lasix 40 mg daily, aspirin 81 mg daily. - Most recent echocardiogram obtained in 03/2024 revealing ejection fraction 55 to 60%, no obvious regional wall motion abnormalities, trace MR -Patient underwent Lexiscan stress test in January 2023 revealing fixed inferior perfusion defect consistent with diaphragmatic attenuation artifact. No other m yocardial perfusion defects to suggest ischemia. Ejection fraction 60%. - Cardiac catheterization history: Unknown 02/10/2025 Patient examined this morning at the bedside. Patient currently denies chest pain or pressure. She denies shortness of breath. She remains on 5 L nasal cannula. 2D echo remains pending. Patient is upset this morning as she states her brother is not doing well physically. 02/11/2025 Echo results are pending, still on 4 to 5 L of oxygen Patient appears depressed and is very tearful Denies any chest pain chest pressure however does report shortness of breath. 02/12/2025 Patient seen and examined. Patient still having some shortness of breath. She is currently on O2 at 6 L high flow nasal cannula with pulse ox of 94%, heart rate 69, blood pressure 122/59. Telemetry is sinus rhythm. No repeat blood work today. Echocardiogram is pending. PHYSICAL EXAM: VITAL SIGNS: Reviewed. GENERAL: Well-developed in no acute distress. HEENT: Head is normocephalic. Pupils are equal, round. Sclerae anicteric. Neck supple. No JVD or thyromegaly LUNGS: Respirations even and unlabored. Bilateral rhonchi HEART: Regular rate and rhythm. S1 and S2 heard. Systolic ejection murmur. ABDOMEN: Soft. Nondistended. Nontender. EXTREMITIES: No clubbing or cyanosis. Peripheral pulses intact. No lower extremity edema NEUROLOGIC: Awake and alert. Oriented x 3. ASSESSMENT: Leukocytosis Acute hypoxic respiratory failure Chronic heart failure with preserved EF Elevated troponin but and flat pattern most likely secondary to hypoxia History of COPD History of pneumonia History of lung mass Hypertension Obesity: BMI 35.5 PLAN: Patients symptoms appear to be primarily pulmonary in origin and not cardiac Patient does not require IV diuresis at this time. Continue oral Lasix 40 mg daily Continue additional cardiac medications including amlodipine, aspirin, metoprolol 2D echo has been ordered. Await results. Wean oxygen as tolerated Further recommendations pending patient course Nurse practitioner note has been reviewed, I agree with documented findings and plan of care. Patient was seen and examined. Objective - Vital Signs Vital signs: Vital Signs Temp 97.5 F L 02/12/25 03:23 Pulse 70 02/12/25 08:06 Resp 17 02/12/25 03:23 BP 133/80 02/12/25 03:23 Pulse Ox 95 02/12/25 07:51 FiO2 40 02/12/25 04:20 Intake & Output 02/11/25 02/12/25 02/12/25 18:59 06:59 18:59 Intake Total 444 Output Total 2350 200 Balance -1906 -200 Weight 83 kg Intake: Oral 444 Output: Urine 2350 200 Other: Voiding Method Bedpan Bedpan Diaper Diaper External Catheter External Catheter # Voids 3 - Labs CBC & Chem 7: 02/11/25 08:04 02/11/25 08:04 Labs: Abnormal Lab Results - Last 24 Hours (Table) 02/11/25 02/11/25 02/11/25 Range/Units 08:04 08:04 10:56 WBC 17.37 H (4.50-10.00) 10*3/uL RBC 3.31 L (4.10-5.20) 10*6/uL Hgb 10.1 L (12.0-15.0) g/dL Hct 33.8 L (37.2-46.3) % MCV 102.1 H (80.0-97.0) fL MCHC 29.9 L (32.0-37.0) g/dL MPV 8.5 L (9.5-12.2) fL Immature Gran # 0.14 H (0.00-0.04) 10*3/uL Neutrophils # 13.29 H (1.80-7.70) 10*3/uL Monocytes # 1.97 H (0.20-1.00) 10*3/uL Sodium 132 L (137-145) mmol/L Chloride 88 L (98-107) mmol/L Carbon Dioxide 39 H (22-30) mmol/L POC Glucose (mg/dL) (70-110) mg/dL Vitamin B12 1951.0 H (200.0-944.0) pg/mL 02/11/25 02/11/25 02/11/25 Range/Units 12:02 17:01 19:58 WBC (4.50-10.00) 10*3/uL RBC (4.10-5.20) 10*6/uL Hgb (12.0-15.0) g/dL Hct (37.2-46.3) % MCV (80.0-97.0) fL MCHC (32.0-37.0) g/dL MPV (9.5-12.2) fL Immature Gran # (0.00-0.04) 10*3/uL Neutrophils # (1.80-7.70) 10*3/uL Monocytes # (0.20-1.00) 10*3/uL Sodium (137-145) mmol/L Chloride (98-107) mmol/L Carbon Dioxide (22-30) mmol/L POC Glucose (mg/dL) 338 H 141 H 111 H (70-110) mg/dL Vitamin B12 (200.0-944.0) pg/mL Microbiology - Last 24 Hours (Table) 02/08/25 12:53 Blood Culture - Preliminary Blood 02/08/25 18:42 Gram Stain - Final Sputum Sputum Culture - Final Hafnia alvei Proteus mirabilis 02/09/25 16:44 Nasal Screen MRSA/MSSA - Final Nasal Swab Methicillin resist S. aureus
--- NOTE | 2025-02-12 14:11 | P.PN ---
Subjective Progress Note Date: 02/12/25 I am following-up with the patient and per nurse no drastic change in her pupils or any new neurological issues. She was on BiPAP earlier. Objective - Vital Signs Vital signs: Vital Signs Temp 98 F 02/12/25 08:00 Pulse 68 02/12/25 12:16 Resp 18 02/12/25 11:07 BP 122/59 02/12/25 11:07 Pulse Ox 94 L 02/12/25 11:07 FiO2 40 02/12/25 04:20 Intake & Output 02/11/25 02/12/25 02/12/25 18:59 06:59 18:59 Intake Total 444 714 Output Total 2350 200 1450 Balance -1906 -200 -736 Weight 83 kg Intake: Oral 444 714 Output: Urine 2350 200 1450 Other: Voiding Method Bedpan Bedpan External Catheter Diaper Diaper External Catheter External Catheter # Voids 3 - Exam General: Patient is lying in bed and is not in acute distress Neuro: Somewhat limited because of her hearing loss as well as some confusion. Patient is a awake alert oriented to self place and time. Is following simple commands. No aphasia. Pupils are the right is about 4 mm left is 3 mm round bilaterally and reactive to light. Visual flores are full to confrontation. Extraocular movements intact no nystagmus. Normal facial sensation to touch. No facial weakness. No dysarthria. Motor: Strength is 5 out of 5 throughout Cerebellar is normal [id number] bilaterally Reflexes is 2 positive throughout Plantars are mute bilaterally. Some of the workup during this hospital visit consisted of: Initial, dioxide level is 47 and is slightly trending down. B12: [address] of the head is reported as no acute intracranial hemorrhage or midline shift. There is diffuse age-related cerebral atrophy and chronic small vessel ischemic change noted. I personally reviewed the CT and I agree there is no acute or subacute stroke. - Labs CBC & Chem 7: 02/11/25 08:04 02/11/25 08:04 Labs: Abnormal Lab Results - Last 24 Hours (Table) 02/11/25 02/11/25 02/11/25 Range/Units 10:56 17:01 19:58 POC Glucose (mg/dL) 141 H 111 H (70-110) mg/dL Vitamin B12 1951.0 H (200.0-944.0) pg/mL 02/12/25 Range/Units 11:30 POC Glucose (mg/dL) 202 H (70-110) mg/dL Vitamin B12 (200.0-944.0) pg/mL Microbiology - Last 24 Hours (Table) 02/08/25 12:53 Blood Culture - Preliminary Blood Assessment and Plan Assessment: This is a 69-year-old woman who presents emergency department because of hypoxia. Her oxygen saturation at her nursing facility was 70% our facility she has also hypercapnic. She is getting oxygen therapy as well as on nebulizer and it seems that overnight yesterday she had unequal pupils as well as confused. CT of the head is unremarkable for any acute process. Anisocoria probable due to breathing treatment (Nebulizer) which improved but has 1mm difference which is probable physiological. Altered mental status due to hypoxic/hypercapnic encephalopathy. Also Hospital induced delirium Chronic hypoxic and hypercapnic respiratory failure secondary due to exacerbation of COPD History of hypoglycemia in the past causing confusion Left hemidiaphragm elevation History of COPD Chronic tobacco dependence Hypothyroidism Hypertension History of bipolar History of anxiety Plan: Per nurse, primary team cancelled MRI Brain. Ordered ammonia level, B12 Patient had a recent TSH on 01/12/2025 and it was normal therefore I will not get a repeat. Pulmonary team is consulted Will defer the rest of the medical management to primary other specialist Recommend the patient to follow-up with Ophthalmology team as outpatient within 2-3 weeks. Time with Patient: Less than 30
[2025-02-12 14:23] VITALS: BMI 35.7
[2025-02-12 16:20] LABS: Glucose,Whole Blood 159 mg/dL (70-110)
[2025-02-12 20:00] LABS: Glucose,Whole Blood 166 mg/dL (70-110)
--- NOTE | 2025-02-12 22:58 | P.PN ---
Subjective Progress Note Date: 02/12/25 This is a 69-year-old female who was recently at [facility] found to be hypoxic and found without her BiPAP and oxygen on and sent here for further evaluation. Patient does have significant history of COPD and CHF and does wear a BiPAP at night. Patient chronically wears 4 to 5 L nasal cannula daily. Chest x-ray appears to have some volume overload with history of CHF and cardiology consulted and pending at this time. Pulmonary following as well and will continue with current regimen. Awaiting sputum and blood cultures at this time. Patient was recently hospitalized for an extended period of stay requiring antibiotics and had completed antibiotic therapy prior to discharge to ECF. Patient's white count remains elevated with a component of reactivity secondary to steroid use. Patient will continue on [id number] DuoNeb treatments and current regimen per pulmonary. Patient is reporting her pain is severe 10/10 and requesting more for pain. Patient continues with anxiety which is chronic and will continue current regimen. Plan is for patient to return to ECF although will require updated PT/OT notes along with insurance authorization. Case management is following and awaiting PT/OT therapy. 02/12/2025 Patient is seen in follow-up today and continues to be anxious being followed by multiple consultations. Patient was scheduled for MRI per neurology which can be outpatient and currently working on returning to ECF at [facility]. Patient will continue on 5 L via nasal cannula that she chronically wears and recommend continued BiPAP at night. Patient continues to report extreme anxiety and is at bedside. Patient is afebrile with no reported chest pain or worse martha shortness of breath. Patient has been tolerating diet and will continue current regimen. Continue monitoring blood sugars closely. Review of systems: Constitutional: reports of fatigue, no fever, or chills Cardiovascular: No reports of chest pain or palpitations Respiratory: reports of continued shortness of breath, chronic cough GI: No reports of nausea, no reports of vomiting : No reports of dysuria or retention Neurovascular: reports of generalized weakness All medications have been reviewed Active Medications Acetaminophen (Acetaminophen Tab 325 Mg Tab) 650 mg PO Q4H PRN PRN Reason: Pain Last Admin: 02/11/25 12:16 Dose: 650 mg Hydrocodone Bitart/Acetaminophen (Hydrocodone/Apap 5-325mg 1 Each Tab) 1 each PO Q8H PRN PRN Reason: Pain Last Admin: 02/12/25 14:45 Dose: 1 each Hydrocodone Bitart/Acetaminophen (Hydrocodone/Apap 7.5-325mg 1 Each Tab) 1 each PO Q8H PRN PRN Reason: Pain Last Admin: 02/12/25 08:30 Dose: 1 each Albuterol/Ipratropium (Ipratropium-Albuterol 3 Ml Neb) 3 ml INHALATION RT-Q4H PRN PRN Reason: shortness of breath Last Admin: 02/08/25 21:08 Dose: 3 ml Albuterol/Ipratropium (Ipratropium-Albuterol 3 Ml Neb) 3 ml INHALATION RT-TID [facility] Last Admin: 02/12/25 20:30 Dose: 3 ml Amlodipine Besylate (Amlodipine 5 Mg Tab) 5 mg PO BID [facility] Last Admin: 02/12/25 21:53 Dose: 5 mg Aspirin (Aspirin 81 Mg) 81 mg PO DAILY [facility] Last Admin: 02/12/25 08:31 Dose: 81 mg Budesonide/Formoterol Fumarate (Symbicort 160-4.5 Mcg Inhaler) 2 puff INHALATION RT-BID [facility] Last Admin: 02/12/25 20:30 Dose: 2 puff Buspirone HCl (Buspirone Hcl 10 Mg Tab) 30 mg PO BID [facility] Last Admin: 02/12/25 21:53 Dose: 30 mg Cholecalciferol (Cholecalciferol 25 Mcg (1000 Iu) Tablet) 50 mcg PO DAILY [facility] Last Admin: 02/12/25 08:31 Dose: 50 mcg Divalproex Sodium (Divalproex Er 250 Mg Tab.Er.24h) 250 mg PO BID [facility] Last Admin: 02/12/25 21:54 Dose: 250 mg Docusate Sodium (Docusate 100 Mg Cap) 100 mg PO DAILY [facility] Last Admin: 02/12/25 08:31 Dose: 100 mg Famotidine (Famotidine 20 Mg Tab) 20 mg PO BID [facility] Last Admin: 02/12/25 21:53 Dose: 20 mg Ferrous Sulfate (Ferrous Sulfate 325 Mg Tab) 325 mg PO DAILY [facility] Last Admin: 02/12/25 08:31 Dose: 325 mg Furosemide (Furosemide 40 Mg Tab) 40 mg PO DAILY [facility] Last Admin: 02/12/25 08:31 Dose: 40 mg Guaifenesin (Guaifenesin 600 Mg Tablet.Er) 600 mg PO Q8H PRN PRN Reason: Cough Heparin Sodium (Porcine) (Heparin Sodium,Porcine 5,000 Unit/Ml 1 Ml Vial) 5,000 unit SQ Q12HR [facility] Last Admin: 02/12/25 21:52 Dose: 5,000 unit Ceftriaxone Sodium 2 gm/ (Sodium Chloride) 50 mls @ 100 mls/hr IVPB Q24HR [facility]; Protocol Last Admin: 02/12/25 08:31 Dose: 100 mls/hr Insulin Human Lispro (Insulin Lispro (Humalog) 100 Unit/Ml 10 Ml Vl) 0 unit SQ ACHS [facility]; Protocol Last Admin: 02/12/25 21:52 Dose: 2 unit Lamotrigine (Lamotrigine 100 Mg Tab) 100 mg PO BID [facility] Last Admin: 02/12/25 21:53 Dose: 100 mg Levothyroxine Sodium (Levothyroxine 75 Mcg Tab) 150 mcg PO DAILY@0600 [facility] Last Admin: 02/12/25 06:09 Dose: 150 mcg Lorazepam (Lorazepam 0.5 Mg Tab) 0.5 mg PO Q8HR PRN PRN Reason: Anxiety Last Admin: 02/12/25 14:45 Dose: 0.5 mg Metoprolol Tartrate (Metoprolol Tartrate 25 Mg Tab) 25 mg PO BID [facility] Last Admin: 02/12/25 21:53 Dose: 25 mg Miscellaneous Information (Pneumonia Protocol Utilized 1 Each Misc) 1 each PO ONCE PRN PRN Reason: Per Protocol Montelukast Sodium (Montelukast 10 Mg Tab) 10 mg PO [facility] Last Admin: 02/12/25 21:54 Dose: 10 mg Nicotine (Nicotine 7mg/24hr Patch) 1 patch TRANSDERM DAILY [facility] Last Admin: 02/12/25 08:31 Dose: 1 patch Nitroglycerin (Nitroglycerin Sl Tabs 0.4 Mg Tab) 0.4 mg SUBLINGUAL Q5M PRN PRN Reason: Chest Pain Non-Formulary Medication (Buprenorphine [Butrans 7.5 Mcg/Hr]) 1 patch TRANSDERM FR [facility] Last Admin: 02/09/25 13:56 Dose: Not Given Olanzapine (Olanzapine 7.5 Mg Tab) 15 mg PO [facility] Last Admin: 02/12/25 21:52 Dose: 15 mg Prednisone (Prednisone 10 Mg Tab) 10 mg PO DAILY [facility] Last Admin: 02/12/25 08:31 Dose: 10 mg Pregabalin (Pregabalin 75 Mg Cap) 75 mg PO BID [facility] Last Admin: 02/12/25 21:53 Dose: 75 mg Tamsulosin HCl (Tamsulosin 0.4 Mg Cap.Er.24h) 0.4 mg PO DAILY [facility] Last Admin: 02/12/25 08:31 Dose: 0.4 mg Tiotropium [place] (Tiotropium 2.5 Mcg Inhaler) 2 puff INHALATION RT-DAILY [facility] Last Admin: 02/12/25 07:49 Dose: 2 puff Tizanidine HCl (Tizanidine 4 Mg Tab) 2 mg PO HS [facility] Last Admin: 02/12/25 21:53 Dose: 2 mg Venlafaxine HCl (Venlafaxine Hcl Er 150 Mg Cap) 150 mg PO DAILY [facility] Last Admin: 02/12/25 08:31 Dose: 150 mg PHYSICAL EXAMINATION: GENERAL: The patient is alert and oriented x 2-3, anxious and tearful on exam, well developed, elderly appearing, obese HEENT: Pupils are round and equally reacting to light. EOMI. no scleral icterus. No conjunctival pallor. Normocephalic, atraumatic. No pharyngeal erythema. No thyromegaly. CARDIOVASCULAR: S1 and S2 muffled PULMONARY: diminished breath sounds bilaterally with some faint wheezing, coarse rhonchi noted. ABDOMEN: soft. Nontender on exam. obese. non-distended, normoactive bowel sounds. No palpable organomegaly. MUSCULOSKELETAL: No joint swelling or deformity. EXTREMITIES: No cyanosis, clubbing, or pedal edema. NEUROLOGICAL: Gross neurological examination did not reveal any focal deficits. Diffuse weakness SKIN: No rashes. Assessment: Shortness of breath, multifactorial, secondary to chronic obstructive pulmonary disease as well as CHF acute exacerbation Concerns of possible underlying pneumonia with multiple previous hospitalizations with sputum cultures being positive for MRSA as well as Pseudomonas aeruginosa Acute on chronic hypoxic respiratory failure secondary to COPD History of congestive heart failure with preserved EF Elevated WBC History of asthma History of GERD Degenerative joint disease History of severe anxiety Continued ongoing nicotine abuse, has not been smoking while at [facility] THC use History of pulmonary embolism History of bipolar disorder History of chronic pain and fibromyalgia GI prophylaxis DVT prophylaxis Full code Plan: Recommend to continue with current medications and management with cardiology and pulmonary following. Cardiology has evaluated the patient with history of CHF with preserved EF and feels shortness of breath is more related to COPD as well as underlying pneumonia and congestive heart failure is somewhat controlled. Cardiology recommending outpatient follow-up and continuing current regimen Patient will be continued on Accu-Cheks AC and at bedtime Patient was evaluated by neurology was scheduled for an MRI although will plan for outpatient Patient continues to await updated PT/OT therapy notes as patient will be returning to [facility] on discharge for continued strength and mobility. Patient will also require insurance authorization which will be submitted after therapy notes. Discussed with case management to submit insurance authorization Encouraged increased activity as tolerated and sitting up in the chair more frequently Continue with BiPAP at night with current settings per pulmonary Patient with significant history of Pseudomonas along with MRSA and was recently hospitalized and discharged maintained on antibiotics. Patient being continued on ceftriaxone with infectious disease following Recommend PT/OT therapy evaluation in the a.m. and awaiting insurance Auth. Recommend limiting narcotic and [employer] agents if patient is more drowsy and confused Due to multiple complex medical issues, overall prognosis is extremely guarded The impression and plan of care has been dictated by Audrey Curtis, nurse practitioner as directed. Dr. Isaias MD I have performed a history and examination and MDM of this patient, discussed the same with the dictator, and agree with the dictator's assessment and plan as written ,documented as a scribe. Based on total visit time, I have performed more than 50% of the visit. Any additional findings or plans will be noted. Objective - Vital Signs Vital signs: Vital Signs Temp 98.1 F 02/12/25 20:00 Pulse 75 02/12/25 20:45 Resp 16 02/12/25 20:45 BP 124/71 02/12/25 20:00 Pulse Ox 92 L 02/12/25 15:08 FiO2 40 02/12/25 04:20 Intake & Output 02/12/25 02/12/25 02/13/25 06:59 18:59 06:59 Intake Total 714 Output Total 200 1850 Balance -200 -1136 Weight 83 kg 83 kg Intake: Oral 714 Output: Urine 200 1850 Other: Voiding Method Bedpan External Catheter Diaper External Catheter - Labs CBC & Chem 7: 02/11/25 08:04 02/11/25 08:04 Labs: Abnormal Lab Results - Last 24 Hours (Table) 02/11/25 02/12/25 02/12/25 Range/Units 10:56 11:30 16:18 POC Glucose (mg/dL) 202 H 159 H (70-110) mg/dL Vitamin B12 1951.0 H (200.0-944.0) pg/mL 02/12/25 Range/Units 19:59 POC Glucose (mg/dL) 166 H (70-110) mg/dL Vitamin B12 (200.0-944.0) pg/mL
[2025-02-13 06:06] LABS: Glucose,Whole Blood 99 mg/dL (70-110)
[2025-02-13 11:04] LABS: Glucose,Whole Blood 126 mg/dL (70-110)
--- NOTE | 2025-02-13 11:40 | P.PN ---
Subjective Progress Note Date: 02/13/25 HISTORY OF PRESENT ILLNESS: This is a 69-year-old female with a past medical history significant for co ngestive heart failure, COPD, pneumonia, lung mass, hypertension, and obesity. Patient follows in the office with Dr. Last. We have been asked to see the patient in consultation for congestive heart failure. Patient examined at the bedside. Patients spouse is at the bedside and providing majority of HPI. Patient states she has not been feeling well for the past couple months and has been in and out of the hospital. She was recently discharged from the hospital and sent to [facility]. She presented back to the hospital due to low oxygen saturations. She denies having any chest pain or pressure. She does report a cough with patel sputum production. She denies any worsening lower extremity edema. She is currently on 5 L nasal cannula. She is a former smoker and stopping smoking about 2-3 months ago. DIAGNOSTICS: - EKG reveals sinus mechanism with LVH. No signs of acute ischemia. - Chest xray mild to moderate cardiomegaly with ongoing interstitial pulmonary edema, slightly improved from prior. Patchy bibasilar opacities and trace bilateral pleural effusions persist. - Laboratory data: WBC 22.76. Hemoglobin 9.0. Platelet count 279. Sodium 132. Potassium 4.3. BUN 18. Creatinine 0.46. Troponin negative x 1. proBNP 316. - Current home cardiac medications include amlodipine 5 mg twice a day, metoprolol tartrate 25 mg twice a day, Lasix 40 mg daily, aspirin 81 mg daily. - Most recent echocardiogram obtained in 03/2024 revealing ejection fraction 55 to 60%, no obvious regional wall motion abnormalities, trace MR -Patient underwent Lexiscan stress test in January 2023 revealing fixed inferior perfusion defect consistent with diaphragmatic attenuation artifact. No other m yocardial perfusion defects to suggest ischemia. Ejection fraction 60%. - Cardiac catheterization history: Unknown 02/10/2025 Patient examined this morning at the bedside. Patient currently denies chest pain or pressure. She denies shortness of breath. She remains on 5 L nasal cannula. 2D echo remains pending. Patient is upset this morning as she states her brother is not doing well physically. 02/11/2025 Echo results are pending, still on 4 to 5 L of oxygen Patient appears depressed and is very tearful Denies any chest pain chest pressure however does report shortness of breath. 02/12/2025 Patient seen and examined. Patient still having some shortness of breath. She is currently on O2 at 6 L high flow nasal cannula with pulse ox of 94%, heart rate 69, blood pressure 122/59. Telemetry is sinus rhythm. No repeat blood work today. Echocardiogram is pending. 02/13/2025 Patient seen and examined. Patient is currently on oxygen 5 L high flow nasal cannula with pulse ox of 94%, heart rate is in the 70s and 80s, blood pressure 120/64. No repeat blood work today. Patient denies chest pain. Echocardiogram reveals EF of 55 to 60%, limited Doppler study with trace mitral and tricuspid regurgitation. PHYSICAL EXAM: VITAL SIGNS: Reviewed. GENERAL: Well-developed in no acute distress. HEENT: Head is normocephalic. Pupils are equal, round. Sclerae anicteric. Neck supple. No JVD or thyromegaly LUNGS: Respirations even and unlabored. Bilateral rhonchi HEART: Regular rate and rhythm. S1 and S2 heard. Systolic ejection murmur. ABDOMEN: Soft. Nondistended. Nontender. EXTREMITIES: No clubbing or cyanosis. Peripheral pulses intact. No lower extremity edema NEUROLOGIC: Awake and alert. Oriented x 3. ASSESSMENT: Leukocytosis Acute hypoxic respiratory failure Chronic heart failure with preserved EF Elevated troponin but and flat pattern most likely secondary to hypoxia History of COPD History of pneumonia History of lung mass Hypertension Obesity: BMI 35.5 PLAN: Patients symptoms appear to be primarily pulmonary in origin and not cardiac Patient does not require IV diuresis at this time. Continue oral Lasix 40 mg daily Continue additional cardiac medications including amlodipine, aspirin, metoprolol Cardiology will sign off this case and follow on an as-needed basis. Please reconsult for any new concerns. Patient may follow-up in the office in one to 2 weeks. Nurse practitioner note has been reviewed, I agree with documented findings and plan of care. Patient was seen and examined. Objective - Vital Signs Vital signs: Vital Signs Temp 97.9 F 02/13/25 03:41 Pulse 74 02/13/25 08:12 Resp 16 02/13/25 03:41 BP 150/69 02/13/25 03:41 Pulse Ox 94 L 02/13/25 08:15 FiO2 40 02/13/25 00:39 Intake & Output 0702/13/25 02/13/25 18:59 06:59 18:59 Intake Total 714 0 Output Total 1850 690 Balance -1136 -690 0 Weight 83 kg 80 kg Intake: Oral 714 0 Output: Urine 1850 690 Other: Voiding Method External Catheter External Catheter - Labs CBC & Chem 7: 02/11/25 08:04 02/11/25 08:04 Labs: Abnormal Lab Results - Last 24 Hours (Table) 02/12/25 02/12/25 02/12/25 Range/Units 11:30 16:18 19:59 POC Glucose (mg/dL) 202 H 159 H 166 H (70-110) mg/dL
[2025-02-13 12:07] VITALS: RESP 18
--- NOTE | 2025-02-13 12:47 | P.PN ---
Subjective Progress Note Date: 02/13/25 Principal diagnosis: Respiratory failure. This is a 69-year-old female patient appears older than stated age with multiple admissions to the hospital mostly related to COPD. She was recently discharged to [facility] on the [address] however she was brought back here yesterday after being found to have O2 saturations in the mid 70s. She is normally oxygen dependent at 4 to 5 L. She is normally BiPAP dependent at night. Chest x-ray shows very low lung volumes findings suggestive of interstitial pulmonary edema with trace pleural effusions. Sputum culture from yesterday is pending. She did have sputum positive MRSA January 25, 2025 and sputum positive Pseudomonas aeruginosa in December 25, 2024. Legionella screen is negative. White count 22.7. Hemoglobin 9.0. Platelets 279. Sodium 132. Potassium 4.3. Bicarb 47. BUN 4018. Creatinine 0.46. Glucose 191. Troponin negative x 1. proBNP 316. She is seen today in consultation on the selective care unit. She is sitting up having breakfast. Awake and alert in no acute distress. Feeling a bit better today compared to yesterday. Maintaining O2 saturation in the low 90s on 5 L high flow nasal cannula. She is afebrile. Hemodynamically stable. Seen today on 02/10/2025, patient continues to have intermittent cough, cough is productive with yellow phlegm, no fever no chills no hemoptysis, remains on oxygen, 5 L nasal cannula with O2 sat of 92%. Sputum Gram stain is showing mostly gram-negative bacilli, final culture is pending in the meantime patient is on broad-spectrum antibiotics, previously she had pseudomonal infections and she also had history of MRSA infections. Addressing potentially both for now. WBC is 15.6 hemoglobin 12.1 electrolytes are normal except for bicarb of 42 which is expected considering her chronic hypercapnic respiratory failure. Chest x-ray on this admission showed patchy bibasilar opacities consistent with pneumonia and she had small pleural effusions. Patient was seen today on 02/11/2025, basically about the same, continues to have intermittent cough, shortness of breath, cough is productive with yellow phlegm, no fever no chills no hemoptysis. She is now on 8 L high flow nasal cannula with O2 saturation ranging between 94 up to 97%, she did have episodes of mental status change, patient does have history of chronic hypercapnic respiratory failure, her average pCO2 is in the 70s. Patient should use BiPAP if she develops any worsening pulmonary status or any worsening mental status. She is prone to develop worsening hypercapnia and mental status changes related to hypercapnia as well as hypoxia. Labs today show WBC count of 17.3 hemoglobin 10.1 electrolytes are normal bicarb is 39 which is clearly indicative of the patient's chronic hypercapnia with metabolic compensation. Blood sugar was 338 this morning. Patient remains on broad-spectrum antibiotics. Including cefepime and vancomycin. Progress note dated February 12, 2025. 69-year-old female well-known to our service. She is seen today in room 363. She continues on saline at 10 cc an hour, and nasal cannula at 6 L. Her BiPAP settings are 12/6, and 40%. She continues on antibiotics. She is in no distress. She is awake and alert. She is resting comfortably in bed. No new laboratory data today. Nasal screen was positive for methicillin-resistant Staph aureus. Sputum from February 08 shows evidence of Proteus mirabilis, and Hafnia. Progress note dated February 13, 2025. The patient is seen today in room 363. Her is in the room. She is eating lunch. She is sitting in the chair, next to the hospital bed. She is awake and alert. No acute distress. No respiratory distress. She continues on nasal O2 at 5 L. She is getting saline at 100 cc an hour. She continues on Rocephin, for Hafnia, and Proteus, in the sputum. No new labs today other than a glucose of 126. Objective - Vital Signs Vital signs: Vital Signs Temp 98.1 F 02/13/25 08:00 Pulse 78 02/13/25 12:00 Resp 18 02/13/25 12:00 BP 146/70 02/13/25 12:00 Pulse Ox 93 L 02/13/25 12:00 FiO2 40 02/13/25 00:39 Intake & Output 02/12/25 02/13/25 02/13/25 18:59 06:59 18:59 Intake Total 714 780 Output Total 6183 327 2181 Balance -1136 -690 -1820 Weight 83 kg 80 kg Intake: Oral 714 780 Output: Urine 8857 597 7402 Other: Voiding Method External Catheter External Catheter External Catheter - Exam No acute distress, oriented 3. Currently on 5 L nasal cannula. HEENT examination is grossly unremarkable. Mucous membranes are moist. No oral lesions. Neck supple. Full range of motion. No adenopathy thyromegaly or neck vein dist ention. Cardiovascular examination reveals regular rhythm rate. S1-S2 normal. No S3 or S4. No discernible murmur noted. Lungs reveal bilateral scattered rhonchi. No wheezes. No crackles. Breath sounds are equal bilaterally. Abdomen soft bowel sounds are heard. No masses or tenderness. Extremities are intact. No cyanosis clubbing or edema. Skin is without rash or lesion. Neurologic examination is brief but nonfocal. - Labs CBC & Chem 7: 02/11/25 08:04 02/11/25 08:04 Labs: Abnormal Lab Results - Last 24 Hours (Table) 02/12/25 02/12/25 02/13/25 Range/Units 16:18 19:59 11:03 POC Glucose (mg/dL) 159 H 166 H 126 H (70-110) mg/dL Assessment and Plan Assessment: Acute on chronic hypoxemic and hypercapnic respiratory failure, secondary to COPD exacerbation, and pneumonia secondary to Proteus, and Hafnia. Multiple hospital admissions, for similar diagnoses. History of hypoglycemia, with mental status changes. Left hemidiaphragm elevation, chronic. Moderate COPD with an FEV1 at 64% of predicted. Chronic hypoxemic respiratory failure, maintained on oxygen. Chronic tobacco dependence. Hypothyroidism. History of hypertension. History of mediastinal lymphadenopathy. History of gastric bypass surgery. History of bipolar disorder. History of fibromyalgia/chronic pain syndrome. History of anxiety. General medical debility. Plan: Plan dated February 12, 2025. The patient is seen today in room 363. The patient continues on nasal O2 at 6 L. That is down from 8 L yesterday. The patient is on saline at 10 cc an hour. The patient's BiPAP settings are 12/6, and 40%. The patient continues on Rocephin. She was previously on vancomycin and cefepime. Sputum sample shows evidence of Proteus species, and Hafnia. We will continue to follow make recommendations along the way. All labs, x-rays, and medications are reviewed. Dictation was produced using [employer] software. Please excuse any grammatical, word or spelling errors. Plan dated February 13, 2025. The patient is seen today in room 363. She is sitting in the chair next to the hospital bed. She continues on nasal O2 at 5 L. That is down from 6 L yesterday. She continues on Rocephin, for her infection, which includes both Rodney fnia, and Proteus, in the sputum. She is getting saline at 10 cc an hour. All labs, x-rays, and medications are reviewed. We will continue to follow the patient, make recommendations along the way. The patient's overall prognosis remains guarded. Dictation was produced using [employer] software. Please excuse any grammatical, word or spelling errors. Time with Patient: Less than 30
--- NOTE | 2025-02-13 15:28 | P.PN ---
Subjective Progress Note Date: 02/12/25 Principal diagnosis: Reason for follow-up pneumonia Patient is a 69-year-old female with a past medical history significant for COPD history of recurrent pneumonia recently did have MRSA pneumonia for the patient has been on IV vancomycin at the assisted was sent to the hospital for hypoxemia shortness of breath chest x-ray mostly interstitial infiltrate did have elevated white count. On today's evaluation that is 02/12/2025, patient has been afebrile, patient is breathing comfortably and is currently on 5 L nasal oxygen patient denies having any chest pain and cough has decreased in intensity, patient denies nausea vomiting or diarrhea and no abdominal pain No new lab has been repeated today Objective - Vital Signs Vital signs: Vital Signs Temp 98 F 02/12/25 08:00 Pulse 68 02/12/25 12:16 Resp 18 02/12/25 11:07 BP 122/59 02/12/25 11:07 Pulse Ox 94 L 02/12/25 11:07 FiO2 40 02/12/25 04:20 Intake & Output 02/11/25 02/12/25 02/12/25 18:59 06:59 18:59 Intake Total 444 714 Output Total 2350 200 1450 Balance -1906 -200 -736 Weight 83 kg Intake: Oral 444 714 Output: Urine 2350 200 1450 Other: Voiding Method Bedpan Bedpan External Catheter Diaper Diaper External Catheter External Catheter # Voids 3 - Exam GENERAL DESCRIPTION: An elderly female lying in bed in no distress RESPIRATORY SYSTEM: Unlabored breathing , coarse breath sounds HEART: S1 S2 regular rate and rhythm , ABDOMEN: Soft , no tenderness EXTREMITIES: No edema feet - Labs CBC & Chem 7: 02/11/25 08:04 02/11/25 08:04 Labs: Abnormal Lab Results - Last 24 Hours (Table) 02/11/25 02/11/25 02/11/25 Range/Units 10:56 17:01 19:58 POC Glucose (mg/dL) 141 H 111 H (70-110) mg/dL Vitamin B12 1951.0 H (200.0-944.0) pg/mL 02/12/25 Range/Units 11:30 POC Glucose (mg/dL) 202 H (70-110) mg/dL Vitamin B12 (200.0-944.0) pg/mL Microbiology - Last 24 Hours (Table) 02/08/25 12:53 Blood Culture - Preliminary Blood 02/08/25 18:42 Gram Stain - Final Sputum Sputum Culture - Final Hafnia alvei Proteus mirabilis Assessment and Plan (1) Leukocytosis Current Visit: Yes Status: Acute Code(s): D72.829 - ELEVATED WHITE BLOOD CELL COUNT, UNSPECIFIED SNOMED Code(s): 179712126 (2) Allergy to multiple antibiotics Current Visit: No Status: Acute Code(s): Z88.1 - ALLERGY STATUS TO OTHER ANTIBIOTIC AGENTS SNOMED Code(s): 887493420 (3) Pneumonia Current Visit: No Status: Acute Code(s): J18.9 - PNEUMONIA, UNSPECIFIED ORGANISM SNOMED Code(s): 194777486 Plan: 1patient presented to hospital with hypoxemia increasing shortness of breath which is likely multifactorial with question of possible fluid overload possibly secondary to pneumonia in this patient who did have a history of recurrent pneumonia and recently completed course of for drug-resistant Pseudomonas followed by MRSA 2-sputum culture have been finalized with Proteus and Hafnia both of them are sensitive to Rocephin 3-patient to continue with Rocephin 2 g daily and monitor clinical course closely Dictation was produced using [employer] dictation software. please excuse any grammatical, word or spelling errors. Time with Patient: Less than 30
--- NOTE | 2025-02-13 15:29 | P.PN ---
Subjective Progress Note Date: 02/13/25 Principal diagnosis: Reason for follow-up pneumonia Patient is a 69-year-old female with a past medical history significant for COPD history of recurrent pneumonia recently did have MRSA pneumonia for the patient [facility] for hypoxemia shortness of breath chest x-ray mostly interstitial infiltrate did have elevated white count. On today's evaluation that is 02/13/2025, Patient is afebrile this morning pa tient seem to breathing comfortably is currently on 5 L nasal cannula oxygen no worsening of vomiting with the change reported by the nursing staff. No new lab has been obtained today Objective - Vital Signs Vital signs: Vital Signs Temp 98.1 F 02/13/25 08:00 Pulse 78 02/13/25 12:00 Resp 18 02/13/25 12:00 BP 146/70 02/13/25 12:00 Pulse Ox 93 L 02/13/25 12:00 FiO2 40 02/13/25 00:39 Intake & Output 02/12/25 02/13/25 02/13/25 18:59 06:59 18:59 Intake Total 714 780 Output Total 5268 651 8486 Balance -1136 -690 -5830 Weight 83 kg 80 kg Intake: Oral 714 780 Output: Urine 5744 761 1143 Other: Voiding Method External Catheter External Catheter External Catheter - Exam GENERAL DESCRIPTION: An elderly female lying in bed in no distress RESPIRATORY SYSTEM: Unlabored breathing , coarse breath sounds HEART: S1 S2 regular rate and rhythm , ABDOMEN: Soft , no tenderness EXTREMITIES: No edema feet - Labs CBC & Chem 7: 02/11/25 08:04 02/11/25 08:04 Labs: Abnormal Lab Results - Last 24 Hours (Table) 02/12/25 02/12/25 02/13/25 Range/Units 16:18 19:59 11:03 POC Glucose (mg/dL) 159 H 166 H 126 H (70-110) mg/dL Assessment and Plan (1) Leukocytosis Current Visit: Yes Status: Acute Code(s): D72.829 - ELEVATED WHITE BLOOD CELL COUNT, UNSPECIFIED SNOMED Code(s): 670527450 (2) Allergy to multiple antibiotics Current Visit: No Status: Acute Code(s): Z88.1 - ALLERGY STATUS TO OTHER ANTIBIOTIC AGENTS SNOMED Code(s): 791122028 (3) Pneumonia Current Visit: No Status: Acute Code(s): J18.9 - PNEUMONIA, UNSPECIFIED ORGANISM SNOMED Code(s): 505114591 Plan: 1patient presented to hospital with hypoxemia increasing shortness of breath which is likely multifactorial with question of possible fluid overload possibly secondary to pneumonia in this patient who did have a history of recurrent pneumonia and recently completed course of for drug-resistant Pseudomonas followed by MRSA 2-sputum culture have been finalized with Proteus and Hafnia both of them are sensitive to Rocephin 3-patient did have some clinical improvement to continue with Rocephin 2 g daily x 7 days on discharge discussed with [employer] for admitting team Dictation was produced using [employer] dictation software. please excuse any grammatical, word or spelling errors.
--- NOTE | 2025-02-13 15:37 | P.DS ---
Providers Date of admission: 02/08/25 12:17 Expected date of discharge: 02/13/25 Attending physician: Megan Esparza Consults: 02/08/25 12:16 Consult Physician Routine Consulting Provider: [facility] Consult Reason/Comments: aechf Do you want consulting provider notified?: Yes 02/08/25 14:04 Consult Physician Routine Consulting Provider: Mayur Roche Consult Reason/Comments: copd Do you want consulting provider notified?: Yes 02/10/25 09:50 Consult Physician Routine Consulting Provider: Briseida Mcdonald Consult Reason/Comments: MRSA, psuedomonas sputum Do you want consulting provider notified?: Yes 02/11/25 06:55 Consult Physician Routine Consulting Provider: Ambrose Brannon Consult Reason/Comments: Unequal pupils, confusion and headache Do you want consulting provider notified?: Yes Primary care physician: Andrzej Wheeler Hospital Course: Final diagnosis Shortness of breath, multifactorial, secondary to chronic obstructive pulmonary disease as well as CHF acute exacerbation Concerns of possible underlying pneumonia with multiple previous hospitalizations with sputum cultures being positive for MRSA as well as Pseudomonas aeruginosa Acute on chronic hypoxic respiratory failure secondary to COPD History of congestive heart failure with preserved EF Elevated WBC History of asthma History of GERD Degenerative joint disease History of severe anxiety Continued ongoing nicotine abuse, has not been smoking while at [facility] THC use History of pulmonary embolism History of bipolar disorder History of chronic pain and fibromyalgia Obesity with a BMI of 34.4 GI prophylaxis DVT prophylaxis Full code Discharge disposition Patient is being discharged in a stable condition with guarded prognosis to [facility] on the [place]. Patient will follow-up with Dr. Wheeler in the outpatient setting upon discharge. Patient is to continue with 1 week of Rocephin per ID recommendations and outpatient follow-up with pulmonary as scheduled. Total time taken is greater than 35 minutes. Hospital course This is a 69-year-old female who was recently admitted with hypoxia and found at [facility] with her BiPAP off with COPD exacerbation and concerns of pneumonia. Donna nt being followed by multiple consultations including infectious disease and pulmonary maintained on BiPAP at night and would recommend continuing with BiPAP at 8 PM until 6 AM daily and continued 5 L that she chronically wears. Patient is maintained on steroids and also continued [id number] breathing treatments. Patient will continue on 2 g of Rocephin daily for 1 week per ID recommendations as sputum culture showed Hafnia alvei and Proteus Mirabella's with sensitivities to ceftriaxone. Nasal swab is positive for MRSA. Patient has been cleared by consultations and will be returning to [facility] for continued strength and mobility with PT/OT therapy. Please refer to other consultation notes for further HPI. Currently no reports of chest pain, shortness of breath, or palpitations. Patient is afebrile. No reports of nausea or vomiting and patient is tolerating diet. Patient will be going to [facility] on the [address] today. Guarded prognosis and high risk for readmissions Physical exam: Gen: This is a 69-year-old female who is awake, alert and oriented x 2-3, extremely anxious, chronically, well-developed, elderly appearing, chronically ill-appearing, obese HEENT: Head is atraumatic, normocephalic. Pupils equal, round. Sclerae is anicteric. NECK: Supple. No JVD. No lymphadenopathy. No thyromegaly. LUNGS: Diminished breath sounds bilaterally with coarse scattered rhonchi. No intercostal retractions. HEART: S1, S2 are muffled ABDOMEN: Soft. Bowel sounds are present. No masses. No tenderness. EXTREMITIES: No pedal edema. No calf tenderness. NEUROLOGICAL: Patient is awake, alert and oriented x3. Cranial nerves 2 through 12 are grossly intact. Diffusely weak Please refer to medication reconciliation sheet for a list of medications. The impression and plan of care has been dictated by Audrey Curtis, Nurse Practitioner as directed. Dr. Isaias MD I have performed a history and examination and MDM of this patient, discussed the same with the dictator, and agree with the dictator's assessment and plan as written ,documented as a scribe. Based on total visit time, I have performed more than 50% of the visit. Patient Condition at Discharge: Stable Plan - Discharge Summary Discharge Rx Participant: Yes New Discharge Prescriptions: No Action Montelukast [Singulair] 10 mg PO HS Levothyroxine Sodium [Synthroid] 150 mcg PO DAILY@0600 Ipratropium-Albuterol Nebulize [Duoneb 0.5 mg-3 mg/3 ml Soln] 3 ml INHALATION RT-TID@06,12,18 lamoTRIgine [LaMICtal] 100 mg PO BID busPIRone HCL [Buspar] 30 mg PO BID Fluticasone/Umeclidin/Vilanter [Trelegy Ellipta 200-62.5-25] 1 puff INHALATION RT-DAILY guaiFENesin [Mucinex] 600 mg PO Q8H PRN PRN Reason: Cough Acetaminophen Tab [Tylenol] 650 mg PO Q4H PRN PRN Reason: Pain Cholecalciferol [Vitamin D3 (25 Mcg = 1000 Iu)] 50 mcg PO DAILY Cyanocobalamin [Vitamin B-12] 500 mcg PO DAILY ALPRAZolam [Xanax] 0.5 mg PO TID PRN #9 tab PRN Reason: Anxiety HYDROcodone/APAP 7.5-325MG [Needmore 7.5-325] 1 tab PO Q8H PRN PRN Reason: Pain 0.9 % Sodium Chloride [Sodium Chloride Flush] 10 ml IV Q12H Arformoterol Tartrate [Brovana] 15 mcg INHALATION RT-BID Famotidine [Pepcid] 20 mg PO BID Tamsulosin [Flomax] 0.4 mg PO DAILY Metoprolol Tartrate [Lopressor] 25 mg PO BID Divalproex ER [Depakote ER] 250 mg PO BID #60 tab OLANZapine 15 mg PO HS Venlafaxine HCl [Effexor XR] 150 mg PO DAILY amLODIPine [Norvasc] 5 mg PO BID 30 Days #60 tab Nitroglycerin Sl Tabs [Nitrostat] 0.4 mg SUBLINGUAL Q5M PRN #20 tab PRN Reason: Chest Pain Ipratropium-Albuterol Nebulize [Duoneb 0.5 mg-3 mg/3 ml Soln] 3 ml INHALATION RT-Q4H PRN each PRN Reason: shortness of breath Docusate [Colace] 100 mg PO DAILY cap predniSONE 10 mg PO DAILY Aspirin 81 mg PO DAILY Nicotine 7Mg/24Hr Patch [Habitrol] 1 patch TRANSDERM DAILY Budesonide [Pulmicort] 1 mg INHALATION RT-BID Buprenorphine [Butrans 7.5 MCG/HR] 1 patch TRANSDERM FR #1 patch HYDROcodone/APAP 5-325MG [Needmore 5-325] 1 tab PO Q8H PRN #6 tab PRN Reason: Pain INSULIN LISPRO (HumaLOG) [HumaLOG] See Protocol SQ AC-TID@08,12,17 Pregabalin [Lyrica] 75 mg PO BID tiZANidine HCL [Zanaflex] 2 mg PO HS Furosemide [Lasix] 40 mg PO DAILY Ferrous Sulfate [Feosol] 325 mg PO DAILY Discharge Medication List Montelukast [Singulair] 10 mg PO HS 12/17/13 [History] Levothyroxine Sodium [Synthroid] 150 mcg PO DAILY@0600 03/29/20 [History] Famotidine [Pepcid] 20 mg PO BID 09/03/21 [History] Tamsulosin [Flomax] 0.4 mg PO DAILY 10/26/21 [History] Ipratropium-Albuterol Nebulize [Duoneb 0.5 mg-3 mg/3 ml Soln] 3 ml INHALATION RT-TID@,12,18 11/13/22 [History] lamoTRIgine [LaMICtal] 100 mg PO BID 03/18/24 [History] Metoprolol Tartrate [Lopressor] 25 mg PO BID 05/16/24 [History] Divalproex ER [Depakote ER] 250 mg PO BID #60 tab 05/26/24 [Rx] busPIRone HCL [Buspar] 30 mg PO BID 06/09/24 [History] Fluticasone/Umeclidin/Vilanter [Trelegy Ellipta 200-62.5-25] 1 puff INHALATION RT-DAILY 10/17/24 [History] OLANZapine 15 mg PO HS 10/17/24 [History] Venlafaxine HCl [Effexor XR] 150 mg PO DAILY 10/17/24 [History] amLODIPine [Norvasc] 5 mg PO BID 30 Days #60 tab 10/21/24 [Rx] Nitroglycerin Sl Tabs [Nitrostat] 0.4 mg SUBLINGUAL Q5M PRN #20 tab 11/30/24 [Rx ] guaiFENesin [Mucinex] 600 mg PO Q8H PRN 12/24/24 [History] Ipratropium-Albuterol Nebulize [Duoneb 0.5 mg-3 mg/3 ml Soln] 3 ml INHALATION RT-Q4H PRN each 12/26/24 [Rx] Docusate [Colace] 100 mg PO DAILY cap 01/08/25 [Rx] Acetaminophen Tab [Tylenol] 650 mg PO Q4H PRN 01/24/25 [History] Aspirin 81 mg PO DAILY 01/24/25 [History] Budesonide [Pulmicort] 1 mg INHALATION RT-BID 01/24/25 [History] Cholecalciferol [Vitamin D3 (25 Mcg = 1000 Iu)] 50 mcg PO DAILY 01/24/25 [History] Cyanocobalamin [Vitamin B-12] 500 mcg PO DAILY 01/24/25 [History] Nicotine 7Mg/24Hr Patch [Habitrol] 1 patch TRANSDERM DAILY 01/24/25 [History] predniSONE 10 mg PO DAILY 01/24/25 [History] ALPRAZolam [Xanax] 0.5 mg PO TID PRN #9 tab 01/30/25 [Rx] Buprenorphine [Butrans 7.5 MCG/HR] 1 patch TRANSDERM FR #1 patch 01/30/25 [Rx] HYDROcodone/APAP 5-325MG [Needmore 5-325] 1 tab PO Q8H PRN #6 tab 01/30/25 [Rx] 0.9 % Sodium Chloride [Sodium Chloride Flush] 10 ml IV Q12H 02/08/25 [History] Arformoterol Tartrate [Brovana] 15 mcg INHALATION RT-BID 02/08/25 [History] Ferrous Sulfate [Feosol] 325 mg PO DAILY 02/08/25 [History] Furosemide [Lasix] 40 mg PO DAILY 02/08/25 [History] HYDROcodone/APAP 7.5-325MG [Need[place] 7.5-325] 1 tab PO Q8H PRN 02/08/25 [History] INSULIN LISPRO (HumaLOG) [HumaLOG] See Protocol SQ AC-TID@,12,17 02/08/25 [History] Pregabalin [Lyrica] 75 mg PO BID 02/08/25 [History] tiZANidine HCL [Zanaflex] 2 mg PO HS 02/08/25 [History] Follow up Appointment(s)/Referral(s): Andrzej Wheeler MD [Primary Care Provider] - 1-2 days
[2025-02-13 16:18] VITALS: BP 145/68; PULSE 79; TEMP 98.3
[2025-02-13 16:27] LABS: Glucose,Whole Blood 311 mg/dL (70-110)
== END 2025-02-13 17:23 | DRG 190 ==
LOC: EC 09:45 → 3SCARD 12:16 → OBSVTOIN 12:17 → 3SCARD 12:57
PROVIDERS: ADMIT Hospitalist; ATTEND Hospitalist
PROC: 5A09457 Assistance with Respiratory Ventilation, 24-96 Consecutive Hours, Continuous Positive Airway Pressure (ICD-10-PCS; principal; 2025-02-08)
DX: J44.1 Chronic obstructive pulmonary disease with (acute) exacerbation (principal); I50.23 Acute on chronic systolic (congestive) heart failure; J96.21 Acute and chronic respiratory failure with hypoxia; J96.22 Acute and chronic respiratory failure with hypercapnia; J15.69 Pneumonia due to other Gram-negative bacteria; G93.1 Anoxic brain damage, not elsewhere classified; F05 Delirium due to known physiological condition; I11.0 Hypertensive heart disease with heart failure; E11.9 Type 2 diabetes mellitus without complications; J44.0 Chronic obstructive pulmonary disease with (acute) lower respiratory infection; F31.9 Bipolar disorder, unspecified; E66.9 Obesity, unspecified; E03.9 Hypothyroidism, unspecified; I50.32 Chronic diastolic (congestive) heart failure; F41.9 Anxiety disorder, unspecified; H57.02 Anisocoria; J98.6 Disorders of diaphragm; G89.4 Chronic pain syndrome; M19.90 Unspecified osteoarthritis, unspecified site; M41.9 Scoliosis, unspecified; M79.7 Fibromyalgia; T38.0X5A Adverse effect of glucocorticoids and synthetic analogues, initial encounter; Z68.35 Body mass index [BMI] 35.0-35.9, adult; Z79.52 Long term (current) use of systemic steroids; Z79.82 Long term (current) use of aspirin; Z79.890 Hormone replacement therapy; Z79.899 Other long term (current) drug therapy; Z82.49 Family history of ischemic heart disease and other diseases of the circulatory system; Z86.14 Personal history of Methicillin resistant Staphylococcus aureus infection; Z86.711 Personal history of pulmonary embolism; Z87.01 Personal history of pneumonia (recurrent); Z88.1 Allergy status to other antibiotic agents; Z90.710 Acquired absence of both cervix and uterus; Z98.42 Cataract extraction status, left eye; Z98.84 Bariatric surgery status; Z99.81 Dependence on supplemental oxygen; Z88.0 Allergy status to penicillin; Z88.2 Allergy status to sulfonamides; Z88.5 Allergy status to narcotic agent; X58.XXXA Exposure to other specified factors, initial encounter
CPT/HCPCS: 36415; 70450; 71045; 71046; 80048; 80053; 80202; 82140; 82607; 83605; 83735; 83880; 84484; 85025; 85610; 85730; 87040; 87070; 87077; 87186; 87205; 87449; 93005; 93306; 94640; 94660; 94760; 96365; 96375; 99285